=== PATIENT | female | born 1970 | race Caucasian/White ===

== ENCOUNTER 2016-04-07 23:38 | Emergency (ER) | payer OTHER ==
[2016-04-07 23:45] VITALS: RESP 18
[2016-04-08] MEDS ORDERED: HYDROmorphone 2 MG/ML 1 ML SYRINGE IM STA (00:01)
[2016-04-08] MEDS ORDERED: PROMETHAZINE INJ 25 MG/ML 1 ML VIAL IM STA (00:01)
[2016-04-08] MEDS ORDERED: diphenhydrAMINE 50 MG/ML 1 ML VIAL IM STA (00:01)
--- NOTE | 2016-04-08 00:10 | ED ---
Headache HPI - General Chief Complaint: Headache Stated Complaint: migraine Time Seen by Provider: 04/07/16 23:51 Source: RN notes reviewed Mode of arrival: ambulatory Limitations: no limitations - History of Present Illness Initial Comments: Patient is a 46-year-old female presents to the emergency room for evaluation of headache. Patient has a chronic history of migraine headaches. Patient states today after eating noodles that she's never had before, she began developing a headache. Patient states having a 9 out of 10 headache. Patient does admit to photophobia and phonophobia. Patient also states she's having slight neck pain which is different from her migraine. Patient states she is having some blurriness in vision as well which is different from her normal migraine symptoms. Patient states she was prescribed and nasal spray by her neurologist and ran out, but cannot get a refill until Friday. Patient denies ear pain, ringing in ears, numbness or tingling in extremities. Patient admits to nausea but denies vomiting. Patient denies recent head trauma. - Related Data Home Medications Medication Instructions Recorded Confirmed Levothyroxine Sodium [Synthroid] 50 mcg PO DAILY 08/10/14 04/07/16 Lacosamide [Vimpat] 100 mg PO BID 11/24/15 04/07/16 Zonisamide [Zonegran] 300 mg PO DAILY 12/21/15 04/07/16 Atorvastatin Calcium [Lipitor] 80 mg PO HS 04/07/16 04/07/16 Butorphanol Tartrate [Stadol Nasal 1 spray NASAL Q3-4H PRN 04/07/16 04/07/16 [place]] Hydrocodone/Acetaminophen [[place] 1 tab PO Q12H PRN 04/07/16 04/07/16 7.5-325] Previous Rx's Medication Instructions Recorded Sertraline [Zoloft] 100 mg PO BID tab 11/20/15 amLODIPine [Norvasc] 5 mg PO DAILY tab 11/20/15 Phenytoin Sodium Extended 100 mg PO TID #90 cap 01/02/16 [Dilantin] Allergies Allergy/AdvReac Type Severity Reaction Status Date / Time gabapentin [From Neurontin] Allergy Itching Verified 04/07/16 23:45 latex Allergy Anaphylaxis Verified 04/07/16 23:45 naproxen [From Naprosyn] Allergy Anaphylaxis Verified 04/07/16 23:45 Penicillins Allergy Anaphylaxis Verified 04/07/16 23:45 quetiapine fumarate Allergy Itching, Verified 04/07/16 23:45 [From Seroquel] leg cramps rofecoxib [From Vioxx] Allergy Itching, Verified 04/07/16 23:45 leg cramps terfenadine [From Seldane] Allergy Rash/Hives Verified 04/07/16 23:45 calcium carbonate [From DHEA] AdvReac Chest Pain Verified 04/07/16 23:45 calcium phosphate,dibasic AdvReac Chest Pain Verified 04/07/16 23:45 [From DHEA] clindamycin AdvReac muscle Verified 04/07/16 23:45 cramps dextromethorphan HBr AdvReac face/neck Verified 04/07/16 23:45 [From NyQuil] flushing diazepam [From Valium] AdvReac Nausea & Verified 04/07/16 23:45 Vomiting doxylamine [From NyQuil] AdvReac face "beet Verified 04/07/16 23:45 red", elevated temp. ibuprofen [From Motrin] AdvReac abdominal Verified 04/07/16 23:45 & muscle cramps indomethacin [From Indocin] AdvReac Abdominal Verified 04/07/16 23:45 Pain,N/V indomethacin sodium AdvReac Abdominal Verified 04/07/16 23:45 [From Indocin] Pain, N/V ketorolac tromethamine AdvReac "built up Verified 04/07/16 23:45 [From Toradol] in system", had to be given something to reverse metoclopramide HCl AdvReac muscle Verified 04/07/16 23:45 [From Reglan] cramps prasterone (DHEA) [From DHEA] AdvReac Chest Pain Verified 04/07/16 23:45 pseudoephedrine HCl AdvReac face "beet Verified 04/07/16 23:45 [From NyQuil] red", elevated temp. sumatriptan [From Imitrex] AdvReac migrane Verified 04/07/16 23:45 sumatriptan succinate AdvReac migrane Verified 04/07/16 23:45 [From Imitrex] topiramate [From Topamax] AdvReac "built up Verified 04/07/16 23:45 in system", had to be given something to reverse tramadol AdvReac Nausea & Verified 04/07/16 23:45 Vomiting trazodone AdvReac "built up Verified 04/07/16 23:45 in system", had to be given something to reverse zolpidem tartrate AdvReac BECOMES Verified 04/07/16 23:45 [From Ambien] VIOLENT WITH NO MEMORY artificial sweetener AdvReac SEVERE Uncoded 04/07/16 23:45 MIGRAINE HEADACHE Review of Systems ROS Statement: Those systems with pertinent positive or pertinent negative responses have been documented in the HPI. ROS Other: All systems not noted in ROS Statement are negative. Past Medical History Past Medical History: GERD/Reflux, Hypertension, Seizure Disorder, Thyroid Disorder Additional Past Medical History / Comment(s): Migraines. Viral MENINGITIS X2, 1993, 2000. CHRONIC BACK PAIN R/T FALL IN 1998. History of Any Multi-Drug Resistant Organisms: None Reported Past Surgical History: Appendectomy, Section, Cholecystectomy, Hysterectomy, Orthopedic Surgery, Tonsillectomy, Tubal Ligation Additional Past Surgical History / Comment(s): Hiatal Hernia, UMB HERNIA Repair. LT ROTATOR REPAIR. TOSHA KNEE SCOPES. Past Anesthesia/Blood Transfusion Reactions: No Reported Reaction Additional Past Anesthesia/Blood Transfusion Reaction / Comment(s): CLAUSTROPHOBIC Past Psychological History: Anxiety, Bipolar, Panic Disorder Smoking Status: Former smoker Past Alcohol Use History: Rare Additional Past Alcohol Use History / Comment(s): SMOKING SINCE 1981, smokes 1/ 4 to 1/2 ppd Past Drug Use History: None Reported - Past Family History Mother Family Medical History: Cancer, Dementia, Diabetes Mellitus, GERD/Reflux, Hyperlipidemia, Hypertension, Thyroid Disorder Additional Family Medical History / Comment(s): quad cabg, cardiac stents, toes amp. Father History Unknown: Yes Family Medical History: No Reported History General Exam - General Exam Comments Initial Comments: Sitting in exam room in no acute distress. Limitations: no limitations General appearance: alert, in no apparent distress Head exam: Present: atraumatic, normocephalic, normal inspection Eye exam: Present: normal appearance ENT exam: Present: normal exam Neck exam: Present: normal inspection, full ROM. Absent: tenderness, lymphadenopathy Respiratory exam: Present: normal lung sounds bilaterally. Absent: respiratory distress Cardiovascular Exam: Present: regular rate, normal rhythm, normal heart sounds Extremities exam: Present: normal inspection Back exam: Present: normal inspection Neurological exam: Present: alert, oriented X3, CN II-XII intact, normal gait Expanded Patient oriented to: Present: person, place, time Speech: Present: fluid speech Cranial nerves: EOM's Intact: Normal Sensory exam: Upper Extremity Light Touch: Normal, Lower Extremity Light Touch: Normal Motor strength exam: RUE: 5, LUE: 5, RLE: 5, LLE: 5 Eye Response: (4) open spontaneously Motor Response: (6) obeys commands Verbal Response: (5) oriented Psychiatric exam: Present: normal affect, normal mood Skin exam: Present: warm, dry, intact, normal color. Absent: rash Course Vital Signs 04/07/16 04/08/16 23:43 01:28 Temperature 98.0 F 97.8 F Pulse Rate 97 79 Respiratory 18 18 Rate Blood Pressure 149/99 144/69 O2 Sat by Pulse 99 97 Oximetry Medical Decision Making - Medical Decision Making Patient is a 46-year-old female presents emergency room for evaluation of migraine headache. Because patient was experiencing new symptoms today brings CT was ordered. Brain CT showed no acute findings. Patient is feeling better after medications given. Advised patient to follow-up with her neurologist. Patient states she understands everything that was discussed with her. Return parameters discussed. Case discussed with Dr. Mclaughlin. - Radiology Data Radiology results: report reviewed, image reviewed Disposition Clinical Impression: Migraine headache Disposition: HOME SELF-CARE Condition: Good Instructions: Acute Headache (ED) Additional Instructions: Continue taking at home medications as needed. Please follow up with neurologist. If any new symptom arises, symptoms worsen or fever develops, return to ER as soon as possible. Referrals: Ayush Mueller MD [Primary Care Provider] - 1-2 days Time of Disposition: 01:21
--- NOTE | 2016-04-08 01:08 | CT ---
EXAMINATION TYPE: CT brain wo con DATE OF EXAM: 04/08/2016 12:40 AM COMPARISON: 12/24/2015 HISTORY: Headache CT DLP: 1047.10 mGycm Automated exposure control for dose reduction was used. FINDINGS: The ventricles and sulci appear normal. There is no mass effect or midline shift. There is no sign of intracranial hemorrhage. The calvarium is intact. There is an empty sella which is a normal variant. IMPRESSION: Negative unenhanced head CT scan. No change.
[2016-04-08 01:29] VITALS: BP 144/69; PULSE 79; TEMP 97.8
== END 2016-04-08 01:28 | disposition home or self-care (01) ==
LOC: EC 23:38
DX: G43.909 Migraine, unspecified, not intractable, without status migrainosus (principal); G40.909 Epilepsy, unspecified, not intractable, without status epilepticus; I10 Essential (primary) hypertension; K21.9 Gastro-esophageal reflux disease without esophagitis; E07.9 Disorder of thyroid, unspecified; F31.9 Bipolar disorder, unspecified; F41.0 Panic disorder [episodic paroxysmal anxiety]; F41.9 Anxiety disorder, unspecified; Z87.891 Personal history of nicotine dependence; Z79.899 Other long term (current) drug therapy; Z88.0 Allergy status to penicillin; Z88.6 Allergy status to analgesic agent; Z88.8 Allergy status to other drugs, medicaments and biological substances; Z91.040 Latex allergy status
CPT/HCPCS: 99284; 96372 ×3; 70450; J1170; J1200; J2550

== ENCOUNTER 2016-07-20 19:51 | Emergency (ER) | payer OTHER ==
[2016-07-20 19:54] VITALS: BP 140/91; PULSE 114; RESP 20; TEMP 99.1
--- NOTE | 2016-07-20 20:06 | ED ---
ENT HPI - General Chief complaint: ENT Stated complaint: migraine Time Seen by Provider: 07/20/16 20:01 Source: patient Mode of arrival: ambulatory Limitations: no limitations - History of Present Illness Initial comments: 46-year-old female presents to the ER complaining of bilateral ear congestion and pressure along with headaches and sinus drainage. Patient feeling fatigued and slight ringing in the ears. Patient started with a cough today that's nonproductive. Patient's tried Ria pot nasal rinses and decongestants without much relief. Patient does feel more fatigued but no recorded fevers. Patient denies seasonal ALLERGIES. Patient states she's been going on for 4 days. No dizziness. No visual changes no nausea or vomiting. MD complaint: ear pain - Related Data Home Medications Medication Instructions Recorded Confirmed Levothyroxine Sodium [Synthroid] 50 mcg PO DAILY 08/10/14 07/20/16 Lacosamide [Vimpat] 100 mg PO BID 11/24/15 07/20/16 Zonisamide [Zonegran] 300 mg PO DAILY 12/21/15 07/20/16 Atorvastatin Calcium [Lipitor] 80 mg PO HS 04/07/16 07/20/16 Butorphanol Tartrate [Stadol Nasal 1 spray NASAL Q3-4H PRN 04/07/16 07/20/16 [place]] Hydrocodone/Acetaminophen [[place] 1 tab PO Q12H PRN 04/07/16 07/20/16 7.5-325] Previous Rx's Medication Instructions Recorded Sertraline [Zoloft] 100 mg PO BID tab 11/20/15 amLODIPine [Norvasc] 5 mg PO DAILY tab 11/20/15 Phenytoin Sodium Extended 100 mg PO TID #90 cap 01/02/16 [Dilantin] Azithromycin [Zithromax Z-pack] 250 mg PO DIRECTED #6 tab 07/20/16 methylPREDNISolone [Medrol] 4 mg PO DIRECTED #21 tab.ds.pk 07/20/16 Allergies Allergy/AdvReac Type Severity Reaction Status Date / Time gabapentin [From Neurontin] Allergy Itching Verified 07/20/16 19:54 latex Allergy Anaphylaxis Verified 07/20/16 19:54 naproxen [From Naprosyn] Allergy Anaphylaxis Verified 07/20/16 19:54 Penicillins Allergy Anaphylaxis Verified 07/20/16 19:54 quetiapine fumarate Allergy Itching, Verified 07/20/16 19:54 [From Seroquel] leg cramps rofecoxib [From Vioxx] Allergy Itching, Verified 07/20/16 19:54 leg cramps terfenadine [From Seldane] Allergy Rash/Hives Verified 07/20/16 19:54 calcium carbonate [From DHEA] AdvReac Chest Pain Verified 07/20/16 19:54 calcium phosphate,dibasic AdvReac Chest Pain Verified 07/20/16 19:54 [From DHEA] clindamycin AdvReac muscle Verified 07/20/16 19:54 cramps dextromethorphan HBr AdvReac face/neck Verified 07/20/16 19:54 [From NyQuil] flushing diazepam [From Valium] AdvReac Nausea & Verified 07/20/16 19:54 Vomiting doxylamine [From NyQuil] AdvReac face "beet Verified 07/20/16 19:54 red", elevated temp. ibuprofen [From Motrin] AdvReac abdominal Verified 07/20/16 19:54 & muscle cramps indomethacin [From Indocin] AdvReac Abdominal Verified 07/20/16 19:54 Pain,N/V indomethacin sodium AdvReac Abdominal Verified 07/20/16 19:54 [From Indocin] Pain, N/V ketorolac tromethamine AdvReac "built up Verified 07/20/16 19:54 [From Toradol] in system", had to be given something to reverse metoclopramide HCl AdvReac muscle Verified 07/20/16 19:54 [From Reglan] cramps prasterone (DHEA) [From DHEA] AdvReac Chest Pain Verified 07/20/16 19:54 pseudoephedrine HCl AdvReac face "beet Verified 07/20/16 19:54 [From NyQuil] red", elevated temp. sumatriptan [From Imitrex] AdvReac migrane Verified 07/20/16 19:54 sumatriptan succinate AdvReac migrane Verified 07/20/16 19:54 [From Imitrex] topiramate [From Topamax] AdvReac "built up Verified 07/20/16 19:54 in system", had to be given something to reverse tramadol AdvReac Nausea & Verified 07/20/16 19:54 Vomiting trazodone AdvReac "built up Verified 07/20/16 19:54 in system", had to be given something to reverse zolpidem tartrate AdvReac BECOMES Verified 07/20/16 19:54 [From Ambien] VIOLENT WITH NO MEMORY artificial sweetener AdvReac SEVERE Uncoded 07/20/16 19:54 MIGRAINE HEADACHE Review of Systems ROS Statement: Those systems with pertinent positive or pertinent negative responses have been documented in the HPI. ROS Other: All systems not noted in ROS Statement are negative. Constitutional: Denies: fever ENT: Reports: congestion. Denies: throat pain Respiratory: Reports: cough Cardiovascular: Denies: chest pain Gastrointestinal: Denies: abdominal pain, nausea, vomiting Neurological: Reports: headache. Denies: confusion, vertigo Past Medical History Past Medical History: GERD/Reflux, Hypertension, Seizure Disorder, Thyroid Disorder Additional Past Medical History / Comment(s): Migraines. Viral MENINGITIS X2, 1993, 2000. CHRONIC BACK PAIN R/T FALL IN 1998. History of Any Multi-Drug Resistant Organisms: None Reported Past Surgical History: Appendectomy, Section, Cholecystectomy, Hysterectomy, Orthopedic Surgery, Tonsillectomy, Tubal Ligation Additional Past Surgical History / Comment(s): Hiatal Hernia, UMB HERNIA Repair. LT ROTATOR REPAIR. TOSHA KNEE SCOPES. Past Anesthesia/Blood Transfusion Reactions: No Reported Reaction Additional Past Anesthesia/Blood Transfusion Reaction / Comment(s): CLAUSTROPHOBIC Past Psychological History: Anxiety, Bipolar, Panic Disorder Smoking Status: Former smoker Past Alcohol Use History: Rare Additional Past Alcohol Use History / Comment(s): SMOKING SINCE 1981, smokes 1/ 4 to 1/2 ppd Past Drug Use History: None Reported - Past Family History Mother Family Medical History: Cancer, Dementia, Diabetes Mellitus, GERD/Reflux, Hyperlipidemia, Hypertension, Thyroid Disorder Additional Family Medical History / Comment(s): quad cabg, cardiac stents, toes amp. Father History Unknown: Yes Family Medical History: No Reported History General Exam Limitations: no limitations General appearance: alert, in no apparent distress Head exam: Present: atraumatic, normocephalic, normal inspection Eye exam: Present: normal appearance, PERRL, EOMI. Absent: scleral icterus, conjunctival injection, periorbital swelling ENT exam: Present: normal exam, mucous membranes moist Expanded TM/Canal exam: Erythema: Right TM Mouth exam: Present: normal external inspection Throat exam: normal inspection Neck exam: Present: normal inspection, lymphadenopathy (Anterior bilateral cervical tender). Absent: tenderness, meningismus Respiratory exam: Present: normal lung sounds bilaterally. Absent: respiratory distress, wheezes, rales, rhonchi, stridor Cardiovascular Exam: Present: regular rate, normal rhythm, normal heart sounds. Absent: systolic murmur, diastolic murmur, rubs, gallop, clicks GI/Abdominal exam: Present: soft, normal bowel sounds. Absent: distended, tenderness, guarding, rebound, rigid Course Vital Signs 07/20/16 19:52 Temperature 99.1 F Pulse Rate 114 H Respiratory 20 Rate Blood Pressure 140/91 O2 Sat by Pulse 98 Oximetry Medical Decision Making - Medical Decision Making Discussed with patient that we'll try antibiotics patient to continue with nasal sprays nasal rinses and decongestants along with antihistamines. Patient only fill steroid if symptoms progress or worsen. Patient states the steroids just makes her legs her but she is not ALLERGIC to them. Disposition Clinical Impression: Otitis media, Eustachian tube dysfunction Disposition: HOME SELF-CARE Condition: Good Instructions: Earache (ED) Prescriptions: Azithromycin [Zithromax Z-pack] 250 mg PO DIRECTED #6 tab methylPREDNISolone [Medrol] 4 mg PO DIRECTED #21 tab.ds.pk Time of Disposition: 20:06
== END 2016-07-20 20:30 | disposition home or self-care (01) ==
LOC: EC 19:51
DX: H66.93 Otitis media, unspecified, bilateral (principal); H69.83 Other specified disorders of Eustachian tube, bilateral; R51 Headache; K21.9 Gastro-esophageal reflux disease without esophagitis; I10 Essential (primary) hypertension; G40.909 Epilepsy, unspecified, not intractable, without status epilepticus; E07.9 Disorder of thyroid, unspecified; F31.9 Bipolar disorder, unspecified; F41.9 Anxiety disorder, unspecified; Z87.891 Personal history of nicotine dependence; Z79.899 Other long term (current) drug therapy; Z91.040 Latex allergy status; Z88.0 Allergy status to penicillin; Z88.6 Allergy status to analgesic agent; Z88.8 Allergy status to other drugs, medicaments and biological substances; Z91.048 Other nonmedicinal substance allergy status
CPT/HCPCS: 99283

== ENCOUNTER 2016-08-06 00:04 | Emergency (ER) | payer OTHER ==
[2016-08-06] MEDS ORDERED: SODIUM CHLORIDE 0.9% 1,000 ML IV STA (00:20)
[2016-08-06] MEDS ORDERED: HYDROmorphone 1 MG/ML 1 ML SYRINGE IVP STA ×2 (00:25→01:47)
[2016-08-06 01:09] LABS: Partial Thromboplastin Time 24.5 sec (22.0-30.0); Prothrombin Time 10.6 sec (9.0-12.0)
[2016-08-06 01:12] LABS: Basophils # (A) 0.1 k/uL (0-0.2); Basophils % (A) 1 %; CH 33.7; CHCM 37.1; Eosinophils # (A) 0.1 k/uL (0-0.7); Eosinophils % (A) 1 %; HCT 40.2 % (34.0-46.0); HDW 2.99; HGB 14.2 gm/dL (11.4-16.0); Luc # (Auto) 0.31; Luc % (Auto) 4; Lymphocytes # (A) 2.5 k/uL (1.0-4.8); Lymphocytes % (A) 28 %; MCH 32.1 pg (25.0-35.0); MCHC 35.2 g/dL (31.0-37.0); MCV 91.4 fL (80.0-100.0); Mean Platelet Volume 8.5; Monocytes # (A) 0.6 k/uL (0-1.0); Monocytes % (A) 7 %; Neutrophils # (A) 5.4 k/uL (1.3-7.7); Neutrophils % (A) 61 %; RDW 12.8 % (11.5-15.5); WBC 8.9 k/uL (3.8-10.6); WBC (Perox) 8.68
[2016-08-06 01:14] LABS: Creatine Kinase 47 U/L (30-135)
[2016-08-06 01:16] LABS: ALT 30 U/L (9-52); AST 20 U/L (14-36); Alkaline Phosphatase 153 U/L (38-126); Amylase 57 U/L (30-110); Anion Gap 9 mmol/L; Blood Urea Nitrogen 6 mg/dL (7-17); Calcium 9.3 mg/dL (8.4-10.2); Carbon Dioxide 24 mmol/L (22-30); Chloride 107 mmol/L (98-107); Glucose 96 mg/dL (74-99); Magnesium 1.9 mg/dL (1.6-2.3); Non-African American GFR(MDRD) >60 (>60 ml/min/1.73 sqM); Potassium 3.2 mmol/L (3.5-5.1); Sodium 140 mmol/L (137-145); Total Bilirubin 0.5 mg/dL (0.2-1.3)
--- NOTE | 2016-08-06 01:19 | ED ---
Chest Pain HPI - General Chief Complaint: Chest Pain Stated Complaint: chest pain, SOB Time Seen by Provider: 08/06/16 00:15 Source: patient, family, RN notes reviewed Mode of arrival: ambulatory Limitations: no limitations - History of Present Illness Initial Comments: This is a 46-year-old female history of multiple medical problems but no history of heart or lung disease who does still smoke cigarettes who states she had the onset about 2 hours prior to admission of retrosternal chest pain and felt like a bag of bricks sitting on her chest. She states it was about 9/10 in severity increases somewhat with deep breathing she denies any cough fevers chills nausea vomiting sweats or other symptoms. He does have a family history again of heart disease but no personal history. She is currently on Cipro for an ear infection she started this 3 days ago. She also started Lipitor 3 days ago. She denies any other current complaints at this time. The patient does states she does get chest pain from anxiety this feels somewhat different. MD Complaint: chest pain - Related Data Home Medications Medication Instructions Recorded Confirmed Levothyroxine Sodium [Synthroid] 50 mcg PO DAILY 08/10/14 08/06/16 Lacosamide [Vimpat] 100 mg PO BID 11/24/15 08/06/16 Zonisamide [Zonegran] 300 mg PO DAILY 12/21/15 08/06/16 Atorvastatin Calcium [Lipitor] 40 mg PO HS 04/07/16 08/06/16 Butorphanol Tartrate [Stadol Nasal 1 spray NASAL Q3-4H PRN 04/07/16 08/06/16 [place]] Hydrocodone/Acetaminophen [[place] 1 tab PO Q12H PRN 04/07/16 08/06/16 7.5-325] Previous Rx's Medication Instructions Recorded Sertraline [Zoloft] 100 mg PO BID tab 11/20/15 amLODIPine [Norvasc] 5 mg PO DAILY tab 11/20/15 Phenytoin Sodium Extended 100 mg PO TID #90 cap 01/02/16 [Dilantin] Azithromycin [Zithromax Z-pack] 250 mg PO DIRECTED #6 tab 07/20/16 methylPREDNISolone [Medrol] 4 mg PO DIRECTED #21 tab.ds.pk 07/20/16 Magnesium 200 mg PO DAILY #14 tablet 08/06/16 Potassium Chloride ER [K-Dur 20] 20 meq PO BID #30 tab 08/06/16 Allergies Allergy/AdvReac Type Severity Reaction Status Date / Time gabapentin [From Neurontin] Allergy Itching Verified 08/06/16 00:09 latex Allergy Anaphylaxis Verified 08/06/16 00:09 naproxen [From Naprosyn] Allergy Anaphylaxis Verified 08/06/16 00:09 Penicillins Allergy Anaphylaxis Verified 08/06/16 00:09 quetiapine fumarate Allergy Itching, Verified 08/06/16 00:09 [From Seroquel] leg cramps rofecoxib [From Vioxx] Allergy Itching, Verified 08/06/16 00:09 leg cramps terfenadine [From [place]eld[place]] Allergy Rash/Hives Verified 08/06/16 00:09 calcium carbonate [From DHEA] AdvReac Chest Pain Verified 08/06/16 00:09 calcium phosphate,dibasic AdvReac Chest Pain Verified 08/06/16 00:09 [From DHEA] clindamycin AdvReac muscle Verified 08/06/16 00:09 cramps dextromethorphan HBr AdvReac face/neck Verified 08/06/16 00:09 [From NyQuil] flushing diazepam [From Valium] AdvReac Nausea & Verified 08/06/16 00:09 Vomiting doxylamine [From NyQuil] AdvReac face "beet Verified 08/06/16 00:09 red", elevated temp. ibuprofen [From Motrin] AdvReac abdominal Verified 08/06/16 00:09 & muscle cramps indomethacin [From Indocin] AdvReac Abdominal Verified 08/06/16 00:09 Pain,N/V indomethacin sodium AdvReac Abdominal Verified 08/06/16 00:09 [From Indocin] Pain, N/V ketorolac tromethamine AdvReac "built up Verified 08/06/16 00:09 [From Toradol] in system", had to be given something to reverse metoclopramide HCl AdvReac muscle Verified 08/06/16 00:09 [From Reglan] cramps prasterone (DHEA) [From DHEA] AdvReac Chest Pain Verified 08/06/16 00:09 pseudoephedrine HCl AdvReac face "beet Verified 08/06/16 00:09 [From NyQuil] red", elevated temp. sumatriptan [From Imitrex] AdvReac migrane Verified 08/06/16 00:09 sumatriptan succinate AdvReac migrane Verified 08/06/16 00:09 [From Imitrex] topiramate [From Topamax] AdvReac "built up Verified 08/06/16 00:09 in system", had to be given something to reverse tramadol AdvReac Nausea & Verified 08/06/16 00:09 Vomiting trazodone AdvReac "built up Verified 08/06/16 00:09 in system", had to be given something to reverse zolpidem tartrate AdvReac BECOMES Verified 08/06/16 00:09 [From Ambien] VIOLENT WITH NO MEMORY artificial sweetener AdvReac SEVERE Uncoded 08/06/16 00:09 MIGRAINE HEADACHE Review of Systems ROS Statement: Those systems with pertinent positive or pertinent negative responses have been documented in the HPI. ROS Other: All systems not noted in ROS Statement are negative. EKG Findings - EKG Results: EKG: interpreted by AMANDA, sinus rhythm (Sinus rhythm with a rate 93 SD interval 162 QRS duration 72 QT/QTC of 394/489 is evidence of a prolonged QT interval no acute ST-T wave elevations or depressions.) Past Medical History Past Medical History: GERD/Reflux, Hypertension, Seizure Disorder, Thyroid Disorder Additional Past Medical History / Comment(s): Migraines. Viral MENINGITIS X2, 1993, 2000. CHRONIC BACK PAIN R/T FALL IN 1998. History of Any Multi-Drug Resistant Organisms: None Reported Past Surgical History: Appendectomy, Section, Cholecystectomy, Hysterectomy, Orthopedic Surgery, Tonsillectomy, Tubal Ligation Additional Past Surgical History / Comment(s): Hiatal Hernia, UMB HERNIA Repair. LT ROTATOR REPAIR. TOSHA KNEE SCOPES. Past Anesthesia/Blood Transfusion Reactions: No Reported Reaction Additional Past Anesthesia/Blood Transfusion Reaction / Comment(s): CLAUSTROPHOBIC Past Psychological History: Anxiety, Bipolar, Panic Disorder Smoking Status: Former smoker Past Alcohol Use History: Rare Additional Past Alcohol Use History / Comment(s): SMOKING SINCE 1981, smokes 1/ 4 to 1/2 ppd Past Drug Use History: None Reported - Past Family History Mother Family Medical History: Cancer, Dementia, Diabetes Mellitus, GERD/Reflux, Hyperlipidemia, Hypertension, Thyroid Disorder Additional Family Medical History / Comment(s): quad cabg, cardiac stents, toes amp. Father History Unknown: Yes Family Medical History: No Reported History General Exam - General Exam Comments Initial Comments: This is a well-developed well-nourished awake alert oriented history female she is very anxious Limitations: no limitations General appearance: alert, anxious Head exam: Present: atraumatic, normocephalic, normal inspection Eye exam: Present: normal appearance, PERRL, EOMI. Absent: scleral icterus, conjunctival injection, periorbital swelling ENT exam: Present: normal exam, mucous membranes moist Neck exam: Present: normal inspection. Absent: tenderness, meningismus, lymphadenopathy Respiratory exam: Present: normal lung sounds bilaterally, chest wall tenderness. Absent: respiratory distress, wheezes, rales, rhonchi, stridor Cardiovascular Exam: Present: regular rate, normal rhythm, normal heart sounds. Absent: systolic murmur, diastolic murmur, rubs, gallop, clicks GI/Abdominal exam: Present: soft, normal bowel sounds. Absent: distended, tenderness, guarding, rebound, rigid Extremities exam: Present: normal inspection, full ROM, normal capillary refill. Absent: tenderness, pedal edema, joint swelling, calf tenderness Back exam: Present: normal inspection Neurological exam: Present: alert, oriented X3, CN II-XII intact Psychiatric exam: Present: normal affect, normal mood Skin exam: Present: warm, dry, intact, normal color. Absent: rash Course Vital Signs 08/06/16 00:06 Temperature 98.2 F Pulse Rate 91 Respiratory 20 Rate Blood Pressure 140/91 O2 Sat by Pulse 97 Oximetry Chest Pain MDM - MDM Review the x-ray reveals no evidence of acute findings. I did discuss findings with the patient she is somewhat hypo-every morning she will be given supplementation discharged. Patient patient is consistent with chest wall pain Disposition Clinical Impression: Chest wall syndrome, Costalchondritis, Hypokalemia Disposition: HOME SELF-CARE Condition: Good Instructions: Costochondritis (ED), Hypokalemia (ED) Prescriptions: Magnesium 200 mg PO DAILY #14 tablet Potassium Chloride ER [K-Dur 20] 20 meq PO BID #30 tab
--- NOTE | 2016-08-06 01:22 | XR ---
EXAM: XR Chest, 2 Views CLINICAL HISTORY: Reason: Chest Pain TECHNIQUE: Frontal and lateral views of the chest. COMPARISON: 05/13/15 radiographs. FINDINGS: Lungs: Stable. No consolidation. Pleural space: Unremarkable. No pleural effusion or pneumothorax. Heart: Stable, without cardiomegaly. Mediastinum: Stable and within normal limits. Bones/joints: The bones are stable including degenerative changes. IMPRESSION: No significant change, no new acute intrathoracic abnormality is seen.
[2016-08-06 01:27] LABS: Creatine Kinase MB <0.2 ng/mL (0.0-2.4); Troponin I <0.012 ng/mL (0.000-0.034)
[2016-08-06 01:44] LABS: Manual Review Performed
[2016-08-06] MEDS ORDERED: LORazepam 2 MG/ML SYRINGE IV STA (01:47)
[2016-08-06] MEDS ORDERED: POTASSIUM CHLORIDE ER 20 MEQ TAB.ER PO STA (01:48)
[2016-08-06 02:03] VITALS: BP 139/95; PULSE 93; RESP 18
[2016-08-06] MEDS ORDERED: ONDANSETRON 4 MG/2 ML VIAL IVP STA (02:13)
[2016-08-06 02:18] VITALS: TEMP 97.1
== END 2016-08-06 02:37 | disposition home or self-care (01) ==
LOC: EC 00:04
DX: M94.0 Chondrocostal junction syndrome [Tietze] (principal); E87.6 Hypokalemia; I10 Essential (primary) hypertension; E07.9 Disorder of thyroid, unspecified; G40.909 Epilepsy, unspecified, not intractable, without status epilepticus; Z87.891 Personal history of nicotine dependence; Z79.899 Other long term (current) drug therapy; Z88.0 Allergy status to penicillin; Z91.040 Latex allergy status; Z88.6 Allergy status to analgesic agent; Z88.8 Allergy status to other drugs, medicaments and biological substances; Z88.1 Allergy status to other antibiotic agents; Z82.49 Family history of ischemic heart disease and other diseases of the circulatory system
CPT/HCPCS: 99285; 96374; 96375 ×2; 96376; 96361 ×2; 36415; 93005; 85379; 80053; 82150; 82550; 82553; 83690; 83735; 84484; 85025; 85610; 85730; 71020; J2060; J2405; J1170

== ENCOUNTER 2016-08-07 21:13 | Inpatient (IN) | payer MEDICAID, OTHER ==
--- NOTE | 2016-08-07 21:52 | ED ---
General Adult HPI - General Chief complaint: Psychiatric Symptoms Stated complaint: suicidal Time Seen by Provider: 08/07/16 21:26 Source: patient, family, RN notes reviewed, old records reviewed Mode of arrival: wheelchair Limitations: no limitations - History of Present Illness Initial comments: This is a 46-year-old female here for evaluation of psychiatric disease, patient has multiple recent ER visits for multiple different issues. Patient coming in for headache and pain that she can't control. She states she wants to kill herself secondary to her headaches. She did cut herself on her wrists for the first time today. Patient denies drugs or alcohol - Related Data Home Medications Medication Instructions Recorded Confirmed Levothyroxine Sodium [Synthroid] 50 mcg PO DAILY 08/10/14 08/07/16 Lacosamide [Vimpat] 100 mg PO BID 11/24/15 08/07/16 Atorvastatin Calcium [Lipitor] 40 mg PO HS 04/07/16 08/07/16 Butorphanol Tartrate [Stadol Nasal 1 spray NASAL Q3-4H PRN 04/07/16 08/07/16 [place]] Ciprofloxacin HCl [Cipro] 500 mg PO Q12HR 08/07/16 08/07/16 LORazepam [Ativan] 0.5 mg PO BID 08/07/16 08/07/16 Magnesium Oxide [Mag-Ox] 200 mg PO BID 08/07/16 08/07/16 Ondansetron Odt [Zofran ODT] 4 mg PO Q8HR PRN 08/07/16 08/07/16 tiZANidine [Zanaflex] 4 mg PO BID 08/07/16 08/07/16 Previous Rx's Medication Instructions Recorded amLODIPine [Norvasc] 5 mg PO DAILY tab 11/20/15 Phenytoin Sodium Extended 100 mg PO TID #90 cap 01/02/16 [Dilantin] Potassium Chloride ER [K-Dur 20] 20 meq PO BID #30 tab 08/06/16 Allergies Allergy/AdvReac Type Severity Reaction Status Date / Time gabapentin [From Neurontin] Allergy Itching Verified 08/06/16 00:09 latex Allergy Anaphylaxis Verified 08/06/16 00:09 naproxen [From Naprosyn] Allergy Anaphylaxis Verified 08/06/16 00:09 Penicillins Allergy Anaphylaxis Verified 08/06/16 00:09 quetiapine fumarate Allergy Itching, Verified 08/06/16 00:09 [From Seroquel] leg cramps rofecoxib [From Vioxx] Allergy Itching, Verified 08/06/16 00:09 leg cramps terfenadine [From Seldane] Allergy Rash/Hives Verified 08/06/16 00:09 calcium carbonate [From DHEA] AdvReac Chest Pain Verified 08/06/16 00:09 calcium phosphate,dibasic AdvReac Chest Pain Verified 08/06/16 00:09 [From DHEA] clindamycin AdvReac muscle Verified 08/06/16 00:09 cramps dextromethorphan HBr AdvReac face/neck Verified 08/06/16 00:09 [From NyQuil] flushing diazepam [From Valium] AdvReac Nausea & Verified 08/06/16 00:09 Vomiting doxylamine [From NyQuil] AdvReac face "beet Verified 08/06/16 00:09 red", elevated temp. ibuprofen [From Motrin] AdvReac abdominal Verified 08/06/16 00:09 & muscle cramps indomethacin [From Indocin] AdvReac Abdominal Verified 08/06/16 00:09 Pain,N/V indomethacin sodium AdvReac Abdominal Verified 08/06/16 00:09 [From Indocin] Pain, N/V ketorolac tromethamine AdvReac "built up Verified 08/06/16 00:09 [From Toradol] in system", had to be given something to reverse metoclopramide HCl AdvReac muscle Verified 08/06/16 00:09 [From Reglan] cramps prasterone (DHEA) [From DHEA] AdvReac Chest Pain Verified 08/06/16 00:09 pseudoephedrine HCl AdvReac face "beet Verified 08/06/16 00:09 [From NyQuil] red", elevated temp. sumatriptan [From Imitrex] AdvReac migrane Verified 08/06/16 00:09 sumatriptan succinate AdvReac migrane Verified 08/06/16 00:09 [From Imitrex] topiramate [From Topamax] AdvReac "built up Verified 08/06/16 00:09 in system", had to be given something to reverse tramadol AdvReac Nausea & Verified 08/06/16 00:09 Vomiting trazodone AdvReac "built up Verified 08/06/16 00:09 in system", had to be given something to reverse zolpidem tartrate AdvReac BECOMES Verified 08/06/16 00:09 [From Ambien] VIOLENT WITH NO MEMORY artificial sweetener AdvReac SEVERE Uncoded 08/06/16 00:09 MIGRAINE HEADACHE Review of Systems ROS Statement: Those systems with pertinent positive or pertinent negative responses have been documented in the HPI. ROS Other: All systems not noted in ROS Statement are negative. Past Medical History Past Medical History: GERD/Reflux, Hypertension, Seizure Disorder, Thyroid Disorder Additional Past Medical History / Comment(s): Migraines. Viral MENINGITIS X2, 1993, 2000. CHRONIC BACK PAIN R/T FALL IN 1998. History of Any Multi-Drug Resistant Organisms: None Reported Past Surgical History: Appendectomy, Section, Cholecystectomy, Hysterectomy, Orthopedic Surgery, Tonsillectomy, Tubal Ligation Additional Past Surgical History / Comment(s): Hiatal Hernia, UMB HERNIA Repair. LT ROTATOR REPAIR. TOSHA KNEE SCOPES. Past Anesthesia/Blood Transfusion Reactions: No Reported Reaction Additional Past Anesthesia/Blood Transfusion Reaction / Comment(s): CLAUSTROPHOBIC Past Psychological History: Anxiety, Bipolar, Panic Disorder Smoking Status: Former smoker Past Alcohol Use History: Rare Additional Past Alcohol Use History / Comment(s): SMOKING SINCE 1981, smokes 1/ 4 to 1/2 ppd Past Drug Use History: None Reported - Past Family History Mother Family Medical History: Cancer, Dementia, Diabetes Mellitus, GERD/Reflux, Hyperlipidemia, Hypertension, Thyroid Disorder Additional Family Medical History / Comment(s): quad cabg, cardiac stents, toes amp. Father History Unknown: Yes Family Medical History: No Reported History General Exam Limitations: no limitations General appearance: alert, in no apparent distress Head exam: Present: atraumatic, normocephalic, normal inspection Eye exam: Present: normal appearance, PERRL, EOMI. Absent: scleral icterus, conjunctival injection, periorbital swelling ENT exam: Present: normal exam, mucous membranes moist Neck exam: Present: normal inspection. Absent: tenderness, meningismus, lymphadenopathy Respiratory exam: Present: normal lung sounds bilaterally. Absent: respiratory distress, wheezes, rales, rhonchi, stridor Cardiovascular Exam: Present: regular rate, normal rhythm, normal heart sounds. Absent: systolic murmur, diastolic murmur, rubs, gallop, clicks GI/Abdominal exam: Present: soft, normal bowel sounds. Absent: distended, tenderness, guarding, rebound, rigid Extremities exam: Present: normal inspection, full ROM, normal capillary refill. Absent: tenderness, pedal edema, joint swelling, calf tenderness Back exam: Present: normal inspection Neurological exam: Present: alert, oriented X3, CN II-XII intact Psychiatric exam: Present: normal affect, normal mood Skin exam: Present: warm, dry, intact, normal color. Absent: rash Course Vital Signs 08/07/16 08/08/16 08/08/16 21:14 00:04 01:02 Temperature 98.1 F 97.3 F L Pulse Rate 103 H 84 81 Pulse Rate [ Order Entry Technician ] Pulse Rate [ Right Sitting] Respiratory 20 18 18 Rate Blood Pressure 181/102 121/94 143/92 Blood Pressure [Right Arm Sitting] O2 Sat by Pulse 100 97 100 Oximetry 08/08/16 08/08/16 08/08/16 01:29 07:50 13:20 Temperature 97.3 F L Pulse Rate Pulse Rate [ Order Entry Technician ] Pulse Rate [ 83 95 82 Right Sitting] Respiratory 18 16 16 Rate Blood Pressure Blood Pressure 151/93 131/90 115/63 [Right Arm Sitting] O2 Sat by Pulse 94 L Oximetry 08/09/16 08/09/16 08/09/16 06:21 11:08 11:15 Temperature 97.9 F Pulse Rate Pulse Rate [ 82 97 Order Entry Technician ] Pulse Rate [ 83 Right Sitting] Respiratory 16 16 16 Rate Blood Pressure Blood Pressure 115/75 [Right Arm Sitting] O2 Sat by Pulse 97 100 Oximetry 08/09/16 11:19 Temperature Pulse Rate Pulse Rate [ 84 Order Entry Technician ] Pulse Rate [ Right Sitting] Respiratory 16 Rate Blood Pressure Blood Pressure [Right Arm Sitting] O2 Sat by Pulse 96 Oximetry - Reevaluation(s) Reevaluation #1: 08/07/16 22:30 Patient is medically clear for psychiatric evaluation Medical Decision Making - Medical Decision Making 46 female here for evaluation. Patient comes into the ER for evaluation of suicidal thoughts and pain control. Patient will be admitted for psychiatric evaluation - Lab Data Result diagrams: 08/07/16 23:53 08/07/16 23:53 Lab Results 08/07/16 08/07/16 08/07/16 Range/Units 23:03 23:03 23:03 WBC (3.8-10.6) k/uL RBC (3.80-5.40) m/uL Hgb (11.4-16.0) gm/dL Hct (34.0-46.0) % MCV (80.0-100.0) fL MCH (25.0-35.0) pg MCHC (31.0-37.0) g/dL RDW (11.5-15.5) % Plt Count (150-450) k/uL Neutrophils % % Lymphocytes % % Monocytes % % Eosinophils % % Basophils % % Neutrophils # (1.3-7.7) k/uL Lymphocytes # (1.0-4.8) k/uL Monocytes # (0-1.0) k/uL Eosinophils # (0-0.7) k/uL Basophils # (0-0.2) k/uL Sodium (137-145) mmol/L Potassium (3.5-5.1) mmol/L Chloride (98-107) mmol/L Carbon Dioxide (22-30) mmol/L Anion Gap mmol/L BUN (7-17) mg/dL Creatinine (0.52-1.04) mg/dL Est GFR (MDRD) Af Amer (>60 ml/min/1.73 sqM) Est GFR (MDRD) Non-Af (>60 ml/min/1.73 sqM) Glucose (74-99) mg/dL Calcium (8.4-10.2) mg/dL Total Bilirubin (0.2-1.3) mg/dL AST (14-36) U/L ALT (9-52) U/L Alkaline Phosphatase (38-126) U/L Total Protein (6.3-8.2) g/dL Albumin (3.5-5.0) g/dL Urine Color Light Yellow Urine Appearance Clear (Clear) Urine pH 6.0 (5.0-8.0) Ur Specific [place] 1.002 (1.001-1.035) Urine Protein Negative (Negative) Urine Glucose (UA) Negative (Negative) Urine Ketones Negative (Negative) Urine Blood Negative (Negative) Urine Nitrite Negative (Negative) Urine Bilirubin Negative (Negative) Urine Urobilinogen <2.0 (<2.0) mg/dL Ur Leukocyte Esterase Negative (Negative) Urine HCG, Qual Not Detected (Not Detectd) Salicylates mg/dL Urine Opiates Screen Detected H (NotDetected) Ur Oxycodone Screen Not Detected (NotDetected) Urine Methadone Screen Not Detected (NotDetected) Ur Propoxyphene Screen Not Detected (NotDetected) Acetaminophen ug/mL Ur Barbiturates Screen Detected H (NotDetected) U Tricyclic Antidepress Not Detected (NotDetected) Ur Phencyclidine Scrn Not Detected (NotDetected) Ur Amphetamines Screen Not Detected (NotDetected) U Methamphetamines Scrn Not Detected (NotDetected) U Benzodiazepines Scrn Detected H (NotDetected) Urine Cocaine Screen Not Detected (NotDetected) U Marijuana (THC) Screen Not Detected (NotDetected) Serum Alcohol mg/dL 08/07/16 08/07/16 Range/Units 23:53 23:53 WBC 10.6 (3.8-10.6) k/uL RBC 4.37 (3.80-5.40) m/uL Hgb 14.2 (11.4-16.0) gm/dL Hct 41.7 (34.0-46.0) % MCV 95.4 (80.0-100.0) fL MCH 32.4 (25.0-35.0) pg MCHC 34.0 (31.0-37.0) g/dL RDW 13.0 (11.5-15.5) % Plt Count 212 (150-450) k/uL Neutrophils % 71 % Lymphocytes % 20 % Monocytes % 6 % Eosinophils % 1 % Basophils % 1 % Neutrophils # 7.5 (1.3-7.7) k/uL Lymphocytes # 2.1 (1.0-4.8) k/uL Monocytes # 0.7 (0-1.0) k/uL Eosinophils # 0.1 (0-0.7) k/uL Basophils # 0.1 (0-0.2) k/uL Sodium 142 (137-145) mmol/L Potassium 3.8 (3.5-5.1) mmol/L Chloride 110 H (98-107) mmol/L Carbon Dioxide 23 (22-30) mmol/L Anion Gap 9 mmol/L BUN 3 L (7-17) mg/dL Creatinine 0.60 (0.52-1.04) mg/dL Est GFR (MDRD) Af Amer >60 (>60 ml/min/1.73 sqM) Est GFR (MDRD) Non-Af >60 (>60 ml/min/1.73 sqM) Glucose 105 H (74-99) mg/dL Calcium 9.4 (8.4-10.2) mg/dL Total Bilirubin 0.3 (0.2-1.3) mg/dL AST 24 (14-36) U/L ALT 26 (9-52) U/L Alkaline Phosphatase 146 H (38-126) U/L Total Protein 6.6 (6.3-8.2) g/dL Albumin 3.8 (3.5-5.0) g/dL Urine Color Urine Appearance (Clear) Urine pH (5.0-8.0) Ur Specific [place] (1.001-1.035) Urine Protein (Negative) Urine Glucose (UA) (Negative) Urine Ketones (Negative) Urine Blood (Negative) Urine Nitrite (Negative) Urine Bilirubin (Negative) Urine Urobilinogen (<2.0) mg/dL Ur Leukocyte Esterase (Negative) Urine HCG, Qual (Not Detectd) Salicylates <1.0 mg/dL Urine Opiates Screen (NotDetected) Ur Oxycodone Screen (NotDetected) Urine Methadone Screen (NotDetected) Ur Propoxyphene Screen (NotDetected) Acetaminophen <10.0 ug/mL Ur Barbiturates Screen (NotDetected) U Tricyclic Antidepress (NotDetected) Ur Phencyclidine Scrn (NotDetected) Ur Amphetamines Screen (NotDetected) U Methamphetamines Scrn (NotDetected) U Benzodiazepines Scrn (NotDetected) Urine Cocaine Screen (NotDetected) U Marijuana (THC) Screen (NotDetected) Serum Alcohol <10 mg/dL Disposition Clinical Impression: Headache, Acute exacerbation of chronic low back pain, Acute psychosis Disposition: TRANSFER TO PSYCH HOSP/UNIT Condition: Stable
[2016-08-07] MEDS ORDERED: HYDROcodone/APAP 5-325MG 1 EACH TAB PO STA (22:00)
[2016-08-07] MEDS ORDERED: LORazepam 1 MG TAB PO STA (22:01)
[2016-08-07] MEDS ORDERED: TOPICAL SKIN ADHESIVE 1 EACH AMP TOPICAL ONE (22:02)
[2016-08-08 00:18] LABS: Appearance,Urine Clear (Clear); Bilirubin,Urine Negative (Negative); Glucose,Urine (UA) Negative (Negative); Ketones,Urine Negative (Negative); Leukocyte Esterase,Urine Negative (Negative); Nitrite,Urine Negative (Negative); Protein,Urine Negative (Negative); Specific Gravity,Urine 1.002 (1.001-1.035); UA Billing (MACRO vs. MICRO) CHEM; Urobilinogen,Urine <2.0 mg/dL (<2.0)
[2016-08-08 00:21] LABS: Basophils # (A) 0.1 k/uL (0-0.2); Basophils % (A) 1 %; CH 33.4; CHCM 35.3; Eosinophils # (A) 0.1 k/uL (0-0.7); Eosinophils % (A) 1 %; HCT 41.7 % (34.0-46.0); HDW 2.91; HGB 14.2 gm/dL (11.4-16.0); Luc # (Auto) 0.22; Luc % (Auto) 2; Lymphocytes # (A) 2.1 k/uL (1.0-4.8); Lymphocytes % (A) 20 %; MCH 32.4 pg (25.0-35.0); MCV 95.4 fL (80.0-100.0); Mean Platelet Volume 8.7; Monocytes # (A) 0.7 k/uL (0-1.0); Monocytes % (A) 6 %; Neutrophils # (A) 7.5 k/uL (1.3-7.7); Neutrophils % (A) 71 %; RBC 4.37 m/uL (3.80-5.40); WBC 10.6 k/uL (3.8-10.6); WBC (Perox) 10.42
[2016-08-08 00:28] LABS: ALT 26 U/L (9-52); AST 24 U/L (14-36); Acetaminophen <10.0 ug/mL; Alcohol <10 mg/dL; Alkaline Phosphatase 146 U/L (38-126); Anion Gap 9 mmol/L; Blood Urea Nitrogen 3 mg/dL (7-17); Calcium 9.4 mg/dL (8.4-10.2); Carbon Dioxide 23 mmol/L (22-30); Chloride 110 mmol/L (98-107); Glucose 105 mg/dL (74-99); Non-African American GFR(MDRD) >60 (>60 ml/min/1.73 sqM); Potassium 3.8 mmol/L (3.5-5.1); Salicylate <1.0 mg/dL; Sodium 142 mmol/L (137-145); Total Bilirubin 0.3 mg/dL (0.2-1.3); Total Protein 6.6 g/dL (6.3-8.2)
[2016-08-08 01:41] VITALS: BMI 32.9
[2016-08-08] MEDS ORDERED: ZIPRASIDONE 20 MG VIAL IM PRN (03:43)
[2016-08-08] MEDS ORDERED: MAG HYDROX/AL HYDROX/SIMETH 30 ML CUP PO PRN (03:43)
[2016-08-08] MEDS ORDERED: MAGNESIUM HYDROXIDE 2,400 MG/10 ML CUP PO PRN (03:43)
[2016-08-08] MEDS ORDERED: ACETAMINOPHEN TAB 325 MG TAB PO PRN (03:43)
[2016-08-08] MEDS: LEVOTHYROXINE 50 MCG TAB PO SCH (06:06)
[2016-08-08] MEDS: LACOSAMIDE 50 MG TABLET PO SCH ×2 (07:57→20:46)
[2016-08-08] MEDS: PHENYTOIN SODIUM EXTENDED 100 MG CAP PO SCH ×3 (07:57→20:47)
[2016-08-08] MEDS: amLODIPine 5 MG TAB PO SCH (07:57)
[2016-08-08] MEDS: MAGNESIUM OXIDE 400 MG TAB PO SCH ×2 (07:58→20:46)
[2016-08-08] MEDS: POTASSIUM CHLORIDE ER 20 MEQ TAB.ER PO SCH ×2 (07:59→20:47)
[2016-08-08] MEDS ORDERED: LORazepam 1 MG TAB PO PRN (08:19)
[2016-08-08] MEDS ORDERED: LORazepam 0.5 MG TAB PO SCH (09:00)
[2016-08-08] MEDS: SUMAtriptan SUCCINATE 50 MG TAB PO STA ×2 (10:05→10:08)
[2016-08-08] MEDS ORDERED: HYDROmorphone 2 MG TAB PO STA (10:11)
[2016-08-08 10:41] VITALS: RESP 16
--- NOTE | 2016-08-08 12:57 | P.HP ---
Psychiatric H&P - . H&P Date: 08/08/16 History & Physical: IDENTIFYING DATA: Ms. Mercado is a 46-year-old woman who presented to unit voluntarily. HISTORY OF PRESENT ILLNESS: She was laying in her bed and complained of a "severe" migraine headache. She alleged she is able to concentrate to complete the interview until she has "something for pain". According to the EPS nurse her brought her to the hospital due to self- inflicted lacerations to both her wrists while he was at the store. He told at the EPS nurse that she has never done anything like this before. He remains concerned about her behavior and has locked the household knives away yesterday. She complained to the EPS nurse that she has ongoing issues with "bipolar depression" and that she "did not have enough in her to cope with the pain." She received pain management treatment but once her insurance changed to [employer] [place] she was not able to go to the physician's office. I spoke with her on the telephone. He stated that she has been complaining of worsening migraines and back pain. He stated that she has been having "a lot of migraines lately." Stated that she has never attempted suicide or self-harm. He believes that the pain had "built up" to where it was too much for her. She was using her "migraine medication", Stadol nasal spray, but "the medicine was not working anymore." He came home from a store and "found her before it got worse." She was in the shower cutting herself. I called the performance management consultant regarding her pain complaints and management sold her pain complaints. PAST PSYCHIATRIC HISTORY: Her denied that she had history of prior psychiatric hospitalizations or mental health treatment. PAST MEDICAL HISTORY: She has multiple medical problem, multiple ALLERGIES and adverse r reactions to medications. Her medication history includes GERD, hypertension, seizure disorder and thyroid disease. She has history of migraine headaches, viral meningitis and chronic back pain. Her surgeries include an appendectomy, section, cholecystectomy, hysterectomy, tonsillectomy and tubal ligation. ALLERGIES: Apri ALLERGIES include Neurontin, latex, Naprosyn, penicillins, Seroquel, Vioxx, Seldane. SUBSTANCE USE HISTORY: Her denied that she has a history of alcohol or drug use FAMILY PSYCHIATRIC/SUBSTANCE USE HISTORY: Her believes that her father' s family have a history of mental illness LEGAL HISTORY: She has no history of legal problems.. SOCIAL HISTORY: She was born in [place]. She and her have been together since 1998 and in 2005. They have 1 daughter and 1 grandchild. Both he and his are unemployed and seeking disability. MENTAL STATUS EXAM: She presented as a distressed 46-year-old female who is laying in bed. She has been not turning lights on in her room. She covered most of her head with a blanket. She was pain focused and alleged she could not continue with the interview due to the severity of the pain. STRENGTHS: Stable housing, stable income, supportive family. WEAKNESSES: Chronic pain disorder. IMPRESSION: She is a 46-year-old male who presented to unit voluntarily with complaints of hopelessness and suicidal ideation. She attributes the suicidal ideation and a suicide gesture to inability to control her headache pain. She apparently lost insurance and unable to continue treatment from a pain specialist. Due to the level of her distress were unable to complete a comprehensive assessment. PRINCIPLE DIAGNOSIS: Suicide gesture by cutting, migraine headaches, rule out opiate withdrawal, rule out opiate use disorder, seizure disorder RECOMMENDATION: Team inpatient psychiatric hospitalizations. Consult medicine for initial physical exam and medical history as well as recommendations for management of her pain complaint. Social work to complete psychosocial assessment. Continue outpatient medications including Norvasc 5 mg daily Lipitor 40 mg at bedtime, Vimpat 100 mg twice a day, Synthroid 50 g daily, magnesium oxide 20 mg twice a day, Dilantin 100 mg 3 times a day and K-Dur 20 mg twice a day. Complete a more detailed assessment when she is in less distress. Allergies Allergy/AdvReac Type Severity Reaction Status Date / Time gabapentin [From Neurontin] Allergy Itching Verified 08/06/16 00:09 latex Allergy Anaphylaxis Verified 08/06/16 00:09 naproxen [From Naprosyn] Allergy Anaphylaxis Verified 08/06/16 00:09 Penicillins Allergy Anaphylaxis Verified 08/06/16 00:09 quetiapine fumarate Allergy Itching, Verified 08/06/16 00:09 [From Seroquel] leg cramps rofecoxib [From Vioxx] Allergy Itching, Verified 08/06/16 00:09 leg cramps terfenadine [From Seldane] Allergy Rash/Hives Verified 08/06/16 00:09 calcium carbonate [From DHEA] AdvReac Chest Pain Verified 08/06/16 00:09 calcium phosphate,dibasic AdvReac Chest Pain Verified 08/06/16 00:09 [From DHEA] clindamycin AdvReac muscle Verified 08/06/16 00:09 cramps dextromethorphan HBr AdvReac face/neck Verified 08/06/16 00:09 [From NyQuil] flushing diazepam [From Valium] AdvReac Nausea & Verified 08/06/16 00:09 Vomiting doxylamine [From NyQuil] AdvReac face "beet Verified 08/06/16 00:09 red", elevated temp. ibuprofen [From Motrin] AdvReac abdominal Verified 08/06/16 00:09 & muscle cramps indomethacin [From Indocin] AdvReac Abdominal Verified 08/06/16 00:09 Pain,N/V indomethacin sodium AdvReac Abdominal Verified 08/06/16 00:09 [From Indocin] Pain, N/V ketorolac tromethamine AdvReac "built up Verified 08/06/16 00:09 [From Toradol] in system", had to be given something to reverse metoclopramide HCl AdvReac muscle Verified 08/06/16 00:09 [From Reglan] cramps prasterone (DHEA) [From DHEA] AdvReac Chest Pain Verified 08/06/16 00:09 pseudoephedrine HCl AdvReac face "beet Verified 08/06/16 00:09 [From NyQuil] red", elevated temp. sumatriptan [From Imitrex] AdvReac migrane Verified 08/06/16 00:09 sumatriptan succinate AdvReac migrane Verified 08/06/16 00:09 [From Imitrex] topiramate [From Topamax] AdvReac "built up Verified 08/06/16 00:09 in system", had to be given something to reverse tramadol AdvReac Nausea & Verified 08/06/16 00:09 Vomiting trazodone AdvReac "built up Verified 08/06/16 00:09 in system", had to be given something to reverse zolpidem tartrate AdvReac BECOMES Verified 08/06/16 00:09 [From Ambien] VIOLENT WITH NO MEMORY artificial sweetener AdvReac SEVERE Uncoded 08/06/16 00:09 MIGRAINE HEADACHE Vital Signs Temp 97.3 F L 08/08/16 01:29 Pulse 83 08/08/16 01:29 Resp 18 08/08/16 01:29 BP 151/93 08/08/16 01:29 Pulse Ox 94 L 08/08/16 01:29 Intake & Output 08/07/16 08/08/16 08/08/16 18:59 06:59 18:59 Weight 81.76 kg Laboratory Last Values WBC 10.6 k/uL (3.8-10.6) 08/07/16 23:53 RBC 4.37 m/uL (3.80-5.40) 08/07/16 23:53 Hgb 14.2 gm/dL (11.4-16.0) 08/07/16 23:53 Hct 41.7 % (34.0-46.0) 08/07/16 23:53 MCV 95.4 fL (80.0-100.0) 08/07/16 23:53 MCH 32.4 pg (25.0-35.0) 08/07/16 23:53 MCHC 34.0 g/dL (31.0-37.0) 08/07/16 23:53 RDW 13.0 % (11.5-15.5) 08/07/16 23:53 Plt Count 212 k/uL (150-450) 08/07/16 23:53 Neutrophils % 71 % 08/07/16 23:53 Lymphocytes % 20 % 08/07/16 23:53 Monocytes % 6 % 08/07/16 23:53 Eosinophils % 1 % 08/07/16 23:53 Basophils % 1 % 08/07/16 23:53 Neutrophils # 7.5 k/uL (1.3-7.7) 08/07/16 23:53 Lymphocytes # 2.1 k/uL (1.0-4.8) 08/07/16 23:53 Monocytes # 0.7 k/uL (0-1.0) 08/07/16 23:53 Eosinophils # 0.1 k/uL (0-0.7) 08/07/16 23:53 Basophils # 0.1 k/uL (0-0.2) 08/07/16 23:53 Sodium 142 mmol/L (137-145) 08/07/16 23:53 Potassium 3.8 mmol/L (3.5-5.1) 08/07/16 23:53 Chloride 110 mmol/L (98-107) H 08/07/16 23:53 Carbon Dioxide 23 mmol/L (22-30) 08/07/16 23:53 Anion Gap 9 mmol/L 08/07/16 23:53 BUN 3 mg/dL (7-17) L 08/07/16 23:53 Creatinine 0.60 mg/dL (0.52-1.04) 08/07/16 23:53 Est GFR (MDRD) Af Amer >60 (>60 ml/min/1.73 sqM) 08/07/16 23:53 Est GFR (MDRD) Non-Af >60 (>60 ml/min/1.73 sqM) 08/07/16 23:53 Glucose 105 mg/dL (74-99) H 08/07/16 23:53 Calcium 9.4 mg/dL (8.4-10.2) 08/07/16 23:53 Total Bilirubin 0.3 mg/dL (0.2-1.3) 08/07/16 23:53 AST 24 U/L (14-36) 08/07/16 23:53 ALT 26 U/L (9-52) 08/07/16 23:53 Alkaline Phosphatase 146 U/L (38-126) H 08/07/16 23:53 Total Protein 6.6 g/dL (6.3-8.2) 08/07/16 23:53 Albumin 3.8 g/dL (3.5-5.0) 08/07/16 23:53 TSH 1.020 mIU/L (0.465-4.680) 08/08/16 09:06 Urine Color Light Yellow 08/07/16 23:03 Urine Appearance Clear (Clear) 08/07/16 23:03 Urine pH 6.0 (5.0-8.0) 08/07/16 23:03 Ur Specific [place] 1.002 (1.001-1.035) 08/07/16 23:03 Urine Protein Negative (Negative) 08/07/16 23:03 Urine Glucose (UA) Negative (Negative) 08/07/16 23:03 Urine Ketones Negative (Negative) 08/07/16 23:03 Urine Blood Negative (Negative) 08/07/16 23:03 Urine Nitrite Negative (Negative) 08/07/16 23:03 Urine Bilirubin Negative (Negative) 08/07/16 23:03 Urine Urobilinogen <2.0 mg/dL (<2.0) 08/07/16 23:03 Ur Leukocyte Esterase Negative (Negative) 08/07/16 23:03 Urine HCG, Qual Not Detected (Not Detectd) 08/07/16 23:03 Salicylates <1.0 mg/dL 08/07/16 23:53 Urine Opiates Screen Detected (NotDetected) H 08/07/16 23:03 Ur Oxycodone Screen Not Detected (NotDetected) 08/07/16 23:03 Urine Methadone Screen Not Detected (NotDetected) 08/07/16 23:03 Ur Propoxyphene Screen Not Detected (NotDetected) 08/07/16 23:03 Acetaminophen <10.0 ug/mL 08/07/16 23:53 Ur Barbiturates Screen Detected (NotDetected) H 08/07/16 23:03 U Tricyclic Antidepress Not Detected (NotDetected) 08/07/16 23:03 Ur Phencyclidine Scrn Not Detected (NotDetected) 08/07/16 23:03 Ur Amphetamines Screen Not Detected (NotDetected) 08/07/16 23:03 U Methamphetamines Scrn Not Detected (NotDetected) 08/07/16 23:03 U Benzodiazepines Scrn Detected (NotDetected) H 08/07/16 23:03 Urine Cocaine Screen Not Detected (NotDetected) 08/07/16 23:03 U Marijuana (THC) Screen Not Detected (NotDetected) 08/07/16 23:03 Serum Alcohol <10 mg/dL 08/07/16 23:53 08/08/16 10:36 08/08/16 12:41
--- NOTE | 2016-08-08 15:39 | P.HPIM ---
History of Present Illness H&P Date: 08/08/16 A 46-year-old female being seen on the mental health unit at the request of the attending for medical eval. Patient did present to the unit on a voluntary basis. Upon arrival in the room the patient's chief complaint is "a severe migraine headache. Patient states has light sensitivity due to the headache Patient has multiple drug ALLERGIES. Patient states she's had migraines for years. Patient stated in the past she has seen a neurologist for management of her headaches but due to insurance reasons has not been able to continue with following up with recommendations by Dr. hall she indicates that headache is usually relieved by using Stadol nasal spray. Did indicate to the patient that we do not have this on formulary and could not use the Stadol nasal spray. Patient was encouraged to have a family member bring in from home could be used patient states did not have anybody who could go to her house and get her nasal spray Additionally patient states the only thing that has helped her in the past is getting IV Dilaudid did indicate the patient that the order would not be written to give IV dilaudid would give a one-time dose oral. Patient did agree and said that she felt that that would be helpful" According to the patient she is been having a lot of migraine headaches.. Patient does have history of a bipolar depressive disorder and has not been able to cope with the migraine headache. Patient also is reporting that she has not been able to cope with the headaches. Reviewing the computerized record indicated that the did come home and found the patient in the shower cutting herself. Subsequently the patient was admitted to the mental health unit of [facility]. Patient's primary doctor is Dr. Lewis Review of Systems Essentially unremarkable except as mentioned in the present illness Past Medical History Past Medical History: GERD/Reflux, Hypertension, Seizure Disorder, Thyroid Disorder Additional Past Medical History / Comment(s): Migraines. Viral MENINGITIS X2, 1993, 2000. CHRONIC BACK PAIN R/T FALL IN 1998. History of Any Multi-Drug Resistant Organisms: None Reported Past Surgical History: Appendectomy, Section, Cholecystectomy, Hysterectomy, Orthopedic Surgery, Tonsillectomy, Tubal Ligation Additional Past Surgical History / Comment(s): Hiatal Hernia, UMB HERNIA Repair. LT ROTATOR REPAIR. TOSHA KNEE SCOPES. Past Anesthesia/Blood Transfusion Reactions: No Reported Reaction Additional Past Anesthesia/Blood Transfusion Reaction / Comment(s): CLAUSTROPHOBIC Past Psychological History: Anxiety, Bipolar, Panic Disorder Smoking Status: Current every day smoker Past Alcohol Use History: Rare Additional Past Alcohol Use History / Comment(s): SMOKING SINCE 1981, smokes 1/ 4 to 1/2 ppd Past Drug Use History: None Reported - Past Family History Mother Family Medical History: Cancer, Dementia, Diabetes Mellitus, GERD/Reflux, Hyperlipidemia, Hypertension, Thyroid Disorder Additional Family Medical History / Comment(s): quad cabg, cardiac stents, toes amp. Father History Unknown: Yes Family Medical History: No Reported History Medications and Allergies Home Medications Medication Instructions Recorded Confirmed Type Levothyroxine Sodium [Synthroid] 50 mcg PO DAILY 08/10/14 08/07/16 History Lacosamide [Vimpat] 100 mg PO BID 11/24/15 08/07/16 History Atorvastatin Calcium [Lipitor] 40 mg PO HS 04/07/16 08/07/16 History Butorphanol Tartrate [Stadol Nasal 1 spray NASAL Q3-4H PRN 04/07/16 08/07/16 History [place]] Ciprofloxacin HCl [Cipro] 500 mg PO Q12HR 08/07/16 08/07/16 History LORazepam [Ativan] 0.5 mg PO BID 08/07/16 08/07/16 History Magnesium Oxide [Mag-Ox] 200 mg PO BID 08/07/16 08/07/16 History Ondansetron Odt [Zofran Odt] 4 mg PO Q8HR PRN 08/07/16 08/07/16 History tiZANidine [Zanaflex] 4 mg PO BID 08/07/16 08/07/16 History Allergies Allergy/AdvReac Type Severity Reaction Status Date / Time gabapentin [From Neurontin] Allergy Itching Verified 08/06/16 00:09 latex Allergy Anaphylaxis Verified 08/06/16 00:09 naproxen [From Naprosyn] Allergy Anaphylaxis Verified 08/06/16 00:09 Penicillins Allergy Anaphylaxis Verified 08/06/16 00:09 quetiapine fumarate Allergy Itching, Verified 08/06/16 00:09 [From Seroquel] leg cramps rofecoxib [From Vioxx] Allergy Itching, Verified 08/06/16 00:09 leg cramps terfenadine [From Seldane] Allergy Rash/Hives Verified 08/06/16 00:09 calcium carbonate [From DHEA] AdvReac Chest Pain Verified 08/06/16 00:09 calcium phosphate,dibasic AdvReac Chest Pain Verified 08/06/16 00:09 [From DHEA] clindamycin AdvReac muscle Verified 08/06/16 00:09 cramps dextromethorphan HBr AdvReac face/neck Verified 08/06/16 00:09 [From NyQuil] flushing diazepam [From Valium] AdvReac Nausea & Verified 08/06/16 00:09 Vomiting doxylamine [From NyQuil] AdvReac face "beet Verified 08/06/16 00:09 red", elevated temp. ibuprofen [From Motrin] AdvReac abdominal Verified 08/06/16 00:09 & muscle cramps indomethacin [From Indocin] AdvReac Abdominal Verified 08/06/16 00:09 Pain,N/V indomethacin sodium AdvReac Abdominal Verified 08/06/16 00:09 [From Indocin] Pain, N/V ketorolac tromethamine AdvReac "built up Verified 08/06/16 00:09 [From Toradol] in system", had to be given something to reverse metoclopramide HCl AdvReac muscle Verified 08/06/16 00:09 [From Reglan] cramps prasterone (DHEA) [From DHEA] AdvReac Chest Pain Verified 08/06/16 00:09 pseudoephedrine HCl AdvReac face "beet Verified 08/06/16 00:09 [From NyQuil] red", elevated temp. sumatriptan [From Imitrex] AdvReac migrane Verified 08/06/16 00:09 sumatriptan succinate AdvReac migrane Verified 08/06/16 00:09 [From Imitrex] topiramate [From Topamax] AdvReac "built up Verified 08/06/16 00:09 in system", had to be given something to reverse tramadol AdvReac Nausea & Verified 08/06/16 00:09 Vomiting trazodone AdvReac "built up Verified 08/06/16 00:09 in system", had to be given something to reverse zolpidem tartrate AdvReac BECOMES Verified 08/06/16 00:09 [From Ambien] VIOLENT WITH NO MEMORY artificial sweetener AdvReac SEVERE Uncoded 08/06/16 00:09 MIGRAINE HEADACHE Physical Exam Vitals: Vital Signs Temp Pulse Pulse Resp BP BP Pulse Ox 08/08/16 13:20 82 16 115/63 08/08/16 07:50 95 16 131/90 08/08/16 01:29 97.3 F L 83 18 151/93 94 L 08/08/16 01:02 97.3 F L 81 18 143/92 100 Intake and Output 08/08/16 08/08/16 08/08/16 06:59 14:59 22:59 Other: Weight 81.76 kg GENERAL APPEARANCE: 46-year-old female patient being seen on the mental health unit in her room with the blanket over her face stating the eye are very sensitive to light complaining of "a bad headache migraine worse whenever" VITAL SIGNS: Reviewed HEENT: Head is normocephalic and atraumatic. Pupils are equal and reactive. The nares are patent. Oropharynx is clear without lesions. NECK: Supple without lymphadenopathy. Traches midline. HEART: S1, S2. Regular rate and rhythm. No murmur noted denying chest pain LUNGS: No crackles or wheezes are heard. Adequate air entry ABDOMEN: Soft, nontender, nondistended with good bowel sounds. No peritoneal signs. No palpable organomegaly or masses. EXTREMITIES: Normal skin color and turgor. No cyanosis, rash, ulceration, clubbing or edema. Radial pedal pulses are 2/4 bilaterally. NEUROLOGICAL: No focal deficits. Strength and sensation are grossly intact. Results CBC & Chem 7: 08/07/16 23:53 08/07/16 23:53 Thrombosis Risk Factor Assmnt - Choose All That Apply Any of the Below Risk Factors Present?: Yes Each Factor Represents 1 point: Age 41-60 years, Obesity (BMI >25) Other Risk Factors: No Other congenital or acquired thrombophilia - If yes, enter type in comment: No Thrombosis Risk Factor Assessment Total Risk Factor Score: 2 Thrombosis Risk Factor Assessment Level: Low Risk Assessment and Plan Plan: Impression Present on admission intractable severe migraine headache History of migraine headaches A history of bipolar depressive disorder Suicide gesture by cutting Present on admission verbalized hopelessness with suicidal ideation Hypothyroid on supplements Hypertension Plan Consult neurology for recommendations for management in regards to the migraine headaches One-time dose of oral dilaudid Resume home meds as appropriate Defer further treatment management in regards to mental illness to the psychiatric service. We'll follow patient on an as-needed basis The above dictated assessment and findings were discussed with dr lewis Impression and the plan of care have been dictated as directed. Charissa Altamirano nurse practitioner acting as a scribe for dr lewis.
--- NOTE | 2016-08-08 17:49 | CT ---
EXAMINATION TYPE: CT brain wo con DATE OF EXAM: 08/08/2016 4:55 PM COMPARISON: Prior head CT second of April 2016 HISTORY: headaches CT DLP: 1037 mGycm Automated exposure control for dose reduction was used. FINDINGS: There is no acute intracranial hemorrhage, mass effect, or midline shift identified. The ventricles and sulci are within normal limits in size. The globes are intact and the visualized sinuses are rem arkable for inflammatory change in the bilateral maxillary sinuses. IMPRESSION: No acute intracranial hemorrhage, mass effect, or midline shift is seen. Sinus disease.
--- NOTE | 2016-08-08 18:54 | P.CNNES ---
History of Present Illness Consult date: 08/08/16 Reason for Consult: Patient admitted with severe intractable headaches. History of Present Illness: this patient is a 46-year-old right-handed white female who apparently over the last several days has been having severe intractable migraine headaches. she has been treated for her migraines and has been using Stadol nasal spray. apparently over the last 3 days she had to use the Stadol nasal spray but it was ineffective. She states that pain was becoming so severe that she could no longer stand the severity of the headaches. she does have history of underlying bipolar depressive disorder as well. She could not cope with the severity of the migraine headaches and apparently attempted to cut herself in her bathroom. she was subsequently brought to the emergency room and admitted to the inpatient psychiatric unit for further management. she does have a history of underlying seizure disorder for which she has been taking Vimpat and Dilantin. She states that she uses Stadol for migraine management but recently this has not been effective. Most of the headache pain seemed to be only on her right side. She describes it as a sharp pain extending from her eye to the back of the head. she was sent for a computed tomography scan of the brain which came back normal with no evidence of acute stroke or hemorrhage. she does have some degree of tenderness in the suboccipital notch quite severe on the right and minimal on the left. patient apparently has been following with her primary care physician Dr. Mueller was been prescribing her pain medications. she has not had any recent fever or chills. 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 she has not had any recent recurrence. on examination the patient does seem to have severe right suboccipital pain to palpation. we have mention this to the patient that this is the likely etiology of much of her headache pains at this time. we reviewed the results of the CAT scan of the brain which came back negative. She would likely benefit from a occipital nerve block procedure for treatment of the right sided headache pain. She was given 1 dose of Dilaudid today which did help but pain seems to be recurring. We will continue close neurological follow-up for the patient. Her overall prognosis at this time remains very guarded. neurology is now been consulted for further evaluation and recommendations. Review of Systems Constitutional: Denies chills, Denies fever Eyes: denies blurred vision, denies pain Ears, nose, mouth and throat: Denies headache, Denies sore throat Cardiovascular: Denies chest pain, Denies shortness of breath Respiratory: Denies cough Gastrointestinal: Denies abdominal pain, Denies diarrhea, Denies nausea, Denies vomiting Genitourinary: Denies dysuria, Denies hematuria Musculoskeletal: Denies myalgias Integumentary: Denies pruritus, Denies rash Neurological: Reports change in mentation, Reports headaches, Reports migraines , Reports seizures, Denies numbness, Denies weakness Psychiatric: Denies anxiety, Denies depression Endocrine: Denies fatigue, Denies weight change Past Medical History Past Medical History: GERD/Reflux, Hypertension, Seizure Disorder, Thyroid Disorder Additional Past Medical History / Comment(s): Migraines. Viral MENINGITIS X2, 1993, 2000. CHRONIC BACK PAIN R/T FALL IN 1998. History of Any Multi-Drug Resistant Organisms: None Reported Past Surgical History: Appendectomy, Section, Cholecystectomy, Hysterectomy, Orthopedic Surgery, Tonsillectomy, Tubal Ligation Additional Past Surgical History / Comment(s): Hiatal Hernia, UMB HERNIA Repair. LT ROTATOR REPAIR. TOSHA KNEE SCOPES. Past Anesthesia/Blood Transfusion Reactions: No Reported Reaction Additional Past Anesthesia/Blood Transfusion Reaction / Comment(s): CLAUSTROPHOBIC Past Psychological History: Anxiety, Bipolar, Panic Disorder Smoking Status: Current every day smoker Past Alcohol Use History: Rare Additional Past Alcohol Use History / Comment(s): SMOKING SINCE 1981, smokes 1/ 4 to 1/2 ppd Past Drug Use History: None Reported - Past Family History Mother Family Medical History: Cancer, Dementia, Diabetes Mellitus, GERD/Reflux, Hyperlipidemia, Hypertension, Thyroid Disorder Additional Family Medical History / Comment(s): quad cabg, cardiac stents, toes amp. Father History Unknown: Yes Family Medical History: No Reported History Medications and Allergies Home Medications Medication Instructions Recorded Confirmed Type Levothyroxine Sodium [Synthroid] 50 mcg PO DAILY 08/10/14 08/07/16 History Lacosamide [Vimpat] 100 mg PO BID 11/24/15 08/07/16 History Atorvastatin Calcium [Lipitor] 40 mg PO HS 04/07/16 08/07/16 History Butorphanol Tartrate [Stadol Nasal 1 spray NASAL Q3-4H PRN 04/07/16 08/07/16 History [place]] Ciprofloxacin HCl [Cipro] 500 mg PO Q12HR 08/07/16 08/07/16 History LORazepam [Ativan] 0.5 mg PO BID 08/07/16 08/07/16 History Magnesium Oxide [Mag-Ox] 200 mg PO BID 08/07/16 08/07/16 History Ondansetron Odt [Zofran Odt] 4 mg PO Q8HR PRN 08/07/16 08/07/16 History tiZANidine [Zanaflex] 4 mg PO BID 08/07/16 08/07/16 History Allergies Allergy/AdvReac Type Severity Reaction Status Date / Time gabapentin [From Neurontin] Allergy Itching Verified 08/06/16 00:09 latex Allergy Anaphylaxis Verified 08/06/16 00:09 naproxen [From Naprosyn] Allergy Anaphylaxis Verified 08/06/16 00:09 Penicillins Allergy Anaphylaxis Verified 08/06/16 00:09 quetiapine fumarate Allergy Itching, Verified 08/06/16 00:09 [From Seroquel] leg cramps rofecoxib [From Vioxx] Allergy Itching, Verified 08/06/16 00:09 leg cramps terfenadine [From Seldane] Allergy Rash/Hives Verified 08/06/16 00:09 calcium carbonate [From DHEA] AdvReac Chest Pain Verified 08/06/16 00:09 calcium phosphate,dibasic AdvReac Chest Pain Verified 08/06/16 00:09 [From DHEA] clindamycin AdvReac muscle Verified 08/06/16 00:09 cramps dextromethorphan HBr AdvReac face/neck Verified 08/06/16 00:09 [From NyQuil] flushing diazepam [From Valium] AdvReac Nausea & Verified 08/06/16 00:09 Vomiting doxylamine [From NyQuil] AdvReac face "beet Verified 08/06/16 00:09 red", elevated temp. ibuprofen [From Motrin] AdvReac abdominal Verified 08/06/16 00:09 & muscle cramps indomethacin [From Indocin] AdvReac Abdominal Verified 08/06/16 00:09 Pain,N/V indomethacin sodium AdvReac Abdominal Verified 08/06/16 00:09 [From Indocin] Pain, N/V ketorolac tromethamine AdvReac "built up Verified 08/06/16 00:09 [From Toradol] in system", had to be given something to reverse metoclopramide HCl AdvReac muscle Verified 08/06/16 00:09 [From Reglan] cramps prasterone (DHEA) [From DHEA] AdvReac Chest Pain Verified 08/06/16 00:09 pseudoephedrine HCl AdvReac face "beet Verified 08/06/16 00:09 [From NyQuil] red", elevated temp. sumatriptan [From Imitrex] AdvReac migrane Verified 08/06/16 00:09 sumatriptan succinate AdvReac migrane Verified 08/06/16 00:09 [From Imitrex] topiramate [From Topamax] AdvReac "built up Verified 08/06/16 00:09 in system", had to be given something to reverse tramadol AdvReac Nausea & Verified 08/06/16 00:09 Vomiting trazodone AdvReac "built up Verified 08/06/16 00:09 in system", had to be given something to reverse zolpidem tartrate AdvReac BECOMES Verified 08/06/16 00:09 [From Ambien] VIOLENT WITH NO MEMORY artificial sweetener AdvReac SEVERE Uncoded 08/06/16 00:09 MIGRAINE HEADACHE Physical Examination - Vital Signs Vital Signs: Vital Signs Temp Pulse Pulse Resp BP BP Pulse Ox 08/08/16 13:20 82 16 115/63 08/08/16 07:50 95 16 131/90 08/08/16 01:29 97.3 F L 83 18 151/93 94 L 08/08/16 01:02 97.3 F L 81 18 143/92 100 Intake and Output 08/08/16 08/08/16 08/08/16 06:59 14:59 22:59 Other: Weight 81.76 kg - Constitutional General appearance: average body habitus, cooperative - EENT EENT: PERRL, mucous membranes moist - Respiratory Respiratory: lungs clear, normal breath sounds - Cardiovascular Cardiovascular: regular rate, normal S1, normal S2 Extremities: no peripheral edema bilaterally - Gastrointestinal Gastrointestinal: normoactive bowel sounds - Integumentary Integumentary: normal - Neurologic Cranial nerve examination: PERRL, EOMI, V1/V2/V3 grossly intact, face symmetric , tongue midline, intact gag reflex, intact corneal reflex, normal palatal elevation Speech examination: intact Sensorimotor examination: intact Detailed motor examination: grossly full strength in all extremities Motor examination - right side: 5/5: biceps, triceps, wrist flexion, wrist extension, liquor bridge operator, hip flexors, knee extensors, dorsiflexion, toe extension (EHL) , plantarflexion Motor examination - left side: 5/5: biceps, triceps, wrist flexion, wrist extension, liquor bridge operator, hip flexors, knee extensors, dorsiflexion, toe extension (EHL) , plantarflexion Detailed sensory examination: intact Reflex and gait examination: intact Reflexes: 1+: ankle, bicep, knee, tricep - Musculoskeletal Musculoskeletal: no pain - Psychiatric Psychiatric: mood/affect appropriate, cooperative Results - Laboratory Findings CBC and BMP: 08/07/16 23:53 08/07/16 23:53 Assessment and Plan (1) Occipital neuralgia of right side Status: Acute Code(s): M54.81 - OCCIPITAL NEURALGIA (2) Lumbar radiculopathy Status: Acute Code(s): M54.16 - RADICULOPATHY, LUMBAR REGION (3) Migraine Status: Acute Code(s): G43.909 - MIGRAINE, UNSP, NOT INTRACTABLE, WITHOUT STATUS MIGRAINOSUS (4) Seizures Status: Acute Code(s): R56.9 - UNSPECIFIED CONVULSIONS (5) Strain, cervical Status: Acute Code(s): S16.1XXA - STRAIN OF MUSCLE, FASCIA AND TENDON AT NECK LEVEL, INIT Plan: This patient is a 46 year old female with recurrent headache pain. She has evidence of right sided occipital neuralgia. We have recommended an occipital nerve block procedure to be done for treatment. Her CT Scan of the brain is negative for any acute changes. We will continue to follow her progress closely during this admission. Her prognosis remains guarded. Will follow up after she is seen by anesthesia for a nerve block procedure. Time with Patient: Greater than 30
[2016-08-08] MEDS ORDERED: ATORVASTATIN 40 MG TAB PO SCH (21:00)
[2016-08-09] MEDS: LEVOTHYROXINE 50 MCG TAB PO SCH (06:16)
[2016-08-09 06:24] VITALS: BP 115/75; TEMP 97.9
[2016-08-09] MEDS: MAGNESIUM OXIDE 400 MG TAB PO SCH (09:00)
[2016-08-09] MEDS: LACOSAMIDE 50 MG TABLET PO SCH (09:00)
[2016-08-09] MEDS: PHENYTOIN SODIUM EXTENDED 100 MG CAP PO SCH ×2 (09:00→15:33)
[2016-08-09] MEDS: amLODIPine 5 MG TAB PO SCH (09:00)
[2016-08-09] MEDS: POTASSIUM CHLORIDE ER 20 MEQ TAB.ER PO SCH (09:00)
[2016-08-09] MEDS ORDERED: ONDANSETRON 4 MG/2 ML VIAL IVP ONE (11:08)
[2016-08-09] MEDS ORDERED: MIDAZOLAM 2 MG/2 ML VIAL IVP ONE (11:10)
[2016-08-09] MEDS: fentaNYL (PF) 50 MCG/ML 2 ML AMP IV ONE ×2 (11:12→11:41)
[2016-08-09] MEDS ORDERED: BUPIVACAIN-EPI 0.5%-1:200,000 30 ML VIAL SQ ONE (11:15)
[2016-08-09] MEDS ORDERED: TRIAMCINOLONE ACETONIDE 40 MG/ML 1 ML VIAL INTRADERMA ONE (11:15)
[2016-08-09 11:39] VITALS: PULSE 84
--- NOTE | 2016-08-09 11:44 | P.PCN ---
Date of Procedure: 08/09/16 Procedure(s) Performed: Pre-operative diagnosis: 1- Bilateral occipital neuralgea Post Operative Diagnosis 1- Bilateral occipital neuralgea Procedure: 1- Bilateral occipital nerve block ANESTHESIA: Conscious sedation with Versed.2 mg and fentanyl 100 micrograms EBL: Minimal PROCEDURE INDICATION: The patient with neck pain and headache secondary to bilateral (R>L )occipital neuralgea unresponsive to conservative treatments. PROCEDURE DESCRIPTION / TECHNIQUE: The patient was seen and identified in the operative area. Risks, benefits, complications, and alternatives were discussed with the patient, the patient agreed to proceed with the procedure and signed the consent. IV was started. Vital signs remained stable throughout the procedure. Patient was taken to the OR and time out was completed. The patient was placed in the pron (sitting ) position on the procedure table. A pillow was placed under the patients chest to increase the cervical interlaminar space. The cervical area and right occiptial area were prepped with alcohol swab. Critical pause was taken. Vital signs were closely monitored during the procedure. Conscious sedation was used during the procedure to decrease patients anxiety. The right occiptal ridge was palpated and was then accessed with a 25 G needle. Then after negative aspiration, 6 ml of the block solution containing 6 ml of PF Buvicaine 0.5% and Kenalog 40 mg was injected. Needle was withdrawn intact. Then the same procedure was repeated on the left side and related the left occipital nerve block, after negative aspiration 6 mL of the block solution containing ropivacaine 0.5% and 40 mg of Kenalog injected after negative aspiration Patient tolerated procedure well. No acute complications.
--- NOTE | 2016-08-09 12:44 | P.DS ---
Providers Date of admission: 08/08/16 00:56 Attending physician: Ayush Conroy MD Consults: 08/08/16 03:43 Consult Physician Routine Consulting Provider: Ayush Mueller Consult Reason/Comments: For H & P for Medical Follow Up Do you want consulting provider notified?: Yes, Notify in am 08/08/16 15:39 Consult Physician Urgent Consulting Provider: Leighann Rdz Consult Reason/Comments: migraines Do you want consulting provider notified?: Yes 08/09/16 07:00 Consult Anesthesia Urgent Consulting Provider: Anesthesia,Services Consult Reason/Comments: Consult for right occipital nerve block procedure. Primary care physician: Ayush Mueller - Discharge Diagnosis(es) (1) Suicide and self-inflicted injury by cutting and piercing instrument Current Visit: Yes Status: Acute Priority: Low (2) Chronic pain Current Visit: No Status: Chronic Priority: High (3) Migraine Current Visit: No Status: Chronic Priority: High Hospital Course: Ms. Mercado is a 46-year-old woman who presented to unit voluntarily. She was laying in her bed and complained of a "severe" migraine headache. She alleged she is able to concentrate to complete the interview until she has "something for pain". According to the EPS nurse her brought her to the hospital due to self- inflicted lacerations to both her wrists while he was at the store. He told at the EPS nurse that she has never done anything like this before. He remains concerned about her behavior and has locked the household knives away yesterday. She complained to the EPS nurse that she has ongoing issues with "bipolar depression" and that she "did not have enough in her to cope with the pain." She received pain management treatment but once her insurance changed to [facility] [place] she was not able to go to the physician's office. I spoke with her on the telephone. He stated that she has been complaining of worsening migraines and back pain. He stated that she has been having "a lot of migraines lately." Stated that she has never attempted suicide or self-harm. He believes that the pain had "built up" to where it was too much for her. She was using her "migraine medication", Stadol nasal spray, but "the medicine was not working anymore." He came home from a store and "found her before it got worse." She was in the shower cutting herself. Her denied that she had history of prior psychiatric hospitalizations or mental health treatment. She has multiple medical problem, multiple ALLERGIES and adverse r reactions to medications. Her medication history includes GERD, hypertension, seizure disorder and thyroid disease. She has history of migraine headaches, viral meningitis and chronic back pain. Her surgeries include an appendectomy, section, cholecystectomy, hysterectomy, tonsillectomy and tubal ligation. We admitted her to the psychiatric unit under the care of this senior medical writer. We provided a biopsychosocial assessment. The medical economics consultant completed the initial physical examination medical history and diagnosed intractable severe migraine headaches, history of migraine headaches, hypertension and hypothyroidism. The medical economics consultant initially prescribed 1 dose of Dilaudid 2 mg with marked relief of her headache pain. She refused sumatriptan 100 mg alleging that it was ineffective in relieving the headaches. Medicine consulted neurology who diagnose occipital neuralgia of the right side, lumbar radiculopathy, migraine, seizures and medical strain. Computed tomography scan of the brain was negative for any acute changes. The neurologist recommended an occipital nerve block and consulted anesthesiology for the procedure. Ms. Mercado was distressed that neither the copy worker nor the neurologist prescribed her Dilaudid or other opiate pain medications. The anesthesiologist performed the bilateral occipital nerve block with conscious sedation on 08/09/2016. I evaluated her when she returned to the unit. She reported a marked decrease in the headache pain. She described her self-harm as a result of her frustration at not being able to obtain relief from the headache. She reported feeling hopeful because the occipital nerve block was successful. She denied having thoughts of or suicide. She requested to be discharged and planned to follow up with her outpatient physician. pitch worker will arrange a family meeting and coordinate follow-up mental health services. Patient Condition at Discharge: Stable Plan - Discharge Summary Discharge Medication List Levothyroxine Sodium [Synthroid] 50 mcg PO DAILY 08/10/14 [History] amLODIPine [Norvasc] 5 mg PO DAILY tab 11/20/15 [Rx] Lacosamide [Vimpat] 100 mg PO BID 11/24/15 [History] Phenytoin Sodium Extended [Dilantin] 100 mg PO TID #90 cap 01/02/16 [Rx] Atorvastatin Calcium [Lipitor] 40 mg PO HS 04/07/16 [History] Butorphanol Tartrate [Stadol Nasal [place]] 1 spray NASAL Q3-4H PRN 04/07/16 [ History] Potassium Chloride ER [K-Dur 20] 20 meq PO BID #30 tab 08/06/16 [Rx] Ciprofloxacin HCl [Cipro] 500 mg PO Q12HR 08/07/16 [History] LORazepam [Ativan] 0.5 mg PO BID 08/07/16 [History] Magnesium Oxide [Mag-Ox] 200 mg PO BID 08/07/16 [History] Ondansetron Odt [Zofran ODT] 4 mg PO Q8HR PRN 08/07/16 [History] tiZANidine [Zanaflex] 4 mg PO BID 08/07/16 [History] Follow up Appointment(s)/Referral(s): Ayush Mueller MD [Primary Care Provider] - 1 Week Discharge Disposition: HOME SELF-CARE
--- NOTE | 2016-08-09 18:56 | EEG ---
DATE OF SERVICE: 08/09/2016 INDICATION FOR EXAMINATION: This patient is a 46-year-old female being evaluated for intractable migraine headaches. Patient has a right occipital neuritis on examination. Patient also with history of seizure disorder and previous history of viral meningitis. AGE: 46. EEG FINDINGS: A routine 21-channel awake digital EEG recording was accomplished utilizing the 10-20 international system with bipolar and referential montages. The background activity in the most alert resting state consists of a low to medium amplitude, fairly well developed and well sustained 7-8 Hz activity over the posterior head regions. This posterior rhythm attenuates to eye opening. There is a small amount of low amplitude 18-20 Hz beta activity seen maximally over the anterior head regions. Muscle and movement artifact was observed on a few occasions during the tracing. Hyperventilation was not performed. Photic stimulation at flash frequencies of 2-30 Hz produced a good symmetrical occipital driving response. No epileptiform discharges were seen. IMPRESSION: This EEG is within normal limits for the patient's age. The EEG failed to reveal any focal, lateralized or epileptiform abnormalities. Clinical correlation is recommended.
== END 2016-08-09 15:43 | disposition home or self-care (01) | DRG 605 ==
LOC: EC 21:13 → 3MHU 08-08 00:56
PROVIDERS: ADMIT Psychiatry & Neurology Psychiatry; ATTEND Psychiatry & Neurology Psychiatry
PROC: 3E0T33Z Introduction of Anti-inflammatory into Peripheral Nerves and Plexi, Percutaneous Approach (ICD-10-PCS; 2016-08-09)
PROC: 3E0T3CZ (ICD-10-PCS; principal; 2016-08-09 11:00)
DX: S61.511A Laceration without foreign body of right wrist, initial encounter (principal); R45.851 Suicidal ideations; S61.512A Laceration without foreign body of left wrist, initial encounter; X78.1XXA Intentional self-harm by knife, initial encounter; M54.81 Occipital neuralgia; M54.16 Radiculopathy, lumbar region; G89.29 Other chronic pain; S16.1XXA Strain of muscle, fascia and tendon at neck level, initial encounter; F31.9 Bipolar disorder, unspecified; F41.0 Panic disorder [episodic paroxysmal anxiety]; G43.919 Migraine, unspecified, intractable, without status migrainosus; K21.9 Gastro-esophageal reflux disease without esophagitis; I10 Essential (primary) hypertension; E03.9 Hypothyroidism, unspecified; G40.909 Epilepsy, unspecified, not intractable, without status epilepticus; F40.240 Claustrophobia; F17.200 Nicotine dependence, unspecified, uncomplicated; Z90.49 Acquired absence of other specified parts of digestive tract; Z90.710 Acquired absence of both cervix and uterus; Z88.0 Allergy status to penicillin; Z88.8 Allergy status to other drugs, medicaments and biological substances; Z88.1 Allergy status to other antibiotic agents; Z91.040 Latex allergy status; Z79.899 Other long term (current) drug therapy; Y92.002 Bathroom of unspecified non-institutional (private) residence as the place of occurrence of the external cause
CPT/HCPCS: 36415; 64405; 70450; 80053; 80185; 80186; 80306; 80320; 81003; 81025; 82075; 83520; 84443; 85025; 95816

== ENCOUNTER 2016-08-31 23:52 | Emergency (ER) | payer OTHER ==
[2016-09-01 00:02] VITALS: BP 139/92; PULSE 104; RESP 18; TEMP 98
[2016-09-01] MEDS ORDERED: diphenhydrAMINE 50 MG/ML 1 ML VIAL IM STA (00:42)
[2016-09-01] MEDS ORDERED: HYDROmorphone 1 MG/ML 1 ML SYRINGE IM STA (00:42)
[2016-09-01] MEDS ORDERED: PHENYTOIN SODIUM EXTENDED 100 MG CAP PO STA (00:42)
[2016-09-01] MEDS ORDERED: LORazepam 2 MG/ML SYRINGE IM STA (00:42)
--- NOTE | 2016-09-01 00:49 | ED ---
Headache HPI - General Chief Complaint: Headache Stated Complaint: Seizure Time Seen by Provider: 09/01/16 00:35 Source: patient, family, RN notes reviewed Mode of arrival: wheelchair Limitations: no limitations - History of Present Illness Initial Comments: 46-year-old female well-known the emergency room presents today chief complaint headache. Patient has chronic headaches related to her seizures. Patient is out of her Dilantin because her physicians out of town. Patient reportedly has had a few seizures over the last few days. Patient states that her nose spray for her headache is not working at this time. Denies any focal weakness. Denies any nausea vomiting diarrhea constipation. No fevers no chills no trauma. - Related Data Home Medications Medication Instructions Recorded Confirmed Levothyroxine Sodium [Synthroid] 50 mcg PO DAILY 08/10/14 09/01/16 Lacosamide [Vimpat] 100 mg PO BID 11/24/15 09/01/16 Atorvastatin Calcium [Lipitor] 40 mg PO HS 04/07/16 09/01/16 Butorphanol Tartrate [Stadol Nasal 1 spray NASAL Q3-4H PRN 04/07/16 09/01/16 [facility]] LORazepam [Ativan] 0.5 mg PO BID 08/07/16 09/01/16 Ondansetron Odt [Zofran ODT] 4 mg PO Q8HR PRN 08/07/16 09/01/16 Sertraline [Zoloft] 100 mg PO BID 09/01/16 09/01/16 Previous Rx's Medication Instructions Recorded amLODIPine [Norvasc] 5 mg PO DAILY tab 11/20/15 Phenytoin Sodium Extended 100 mg PO TID #90 cap 01/02/16 [Dilantin] Phenytoin Sodium Extended 100 mg PO TID #21 capsule 09/01/16 [Dilantin] Allergies Allergy/AdvReac Type Severity Reaction Status Date / Time gabapentin [From Neurontin] Allergy Itching Verified 09/01/16 00:02 latex Allergy Anaphylaxis Verified 09/01/16 00:02 naproxen [From Naprosyn] Allergy Anaphylaxis Verified 09/01/16 00:02 Penicillins Allergy Anaphylaxis Verified 09/01/16 00:02 quetiapine fumarate Allergy Itching, Verified 09/01/16 00:02 [From Seroquel] leg cramps rofecoxib [From Vioxx] Allergy Itching, Verified 09/01/16 00:02 leg cramps terfenadine [From Seldane] Allergy Rash/Hives Verified 09/01/16 00:02 calcium carbonate [From DHEA] AdvReac Chest Pain Verified 09/01/16 00:02 calcium phosphate,dibasic AdvReac Chest Pain Verified 09/01/16 00:02 [From DHEA] clindamycin AdvReac muscle Verified 09/01/16 00:02 cramps dextromethorphan HBr AdvReac face/neck Verified 09/01/16 00:02 [From NyQuil] flushing diazepam [From Valium] AdvReac Nausea & Verified 09/01/16 00:02 Vomiting doxylamine [From NyQuil] AdvReac face "beet Verified 09/01/16 00:02 red", elevated temp. ibuprofen [From Motrin] AdvReac abdominal Verified 09/01/16 00:02 & muscle cramps indomethacin [From Indocin] AdvReac Abdominal Verified 09/01/16 00:02 Pain,N/V indomethacin sodium AdvReac Abdominal Verified 09/01/16 00:02 [From Indocin] Pain, N/V ketorolac tromethamine AdvReac "built up Verified 09/01/16 00:02 [From Toradol] in system", had to be given something to reverse metoclopramide HCl AdvReac muscle Verified 09/01/16 00:02 [From Reglan] cramps prasterone (DHEA) [From DHEA] AdvReac Chest Pain Verified 09/01/16 00:02 pseudoephedrine HCl AdvReac face "beet Verified 09/01/16 00:02 [From NyQuil] red", elevated temp. sumatriptan [From Imitrex] AdvReac migrane Verified 09/01/16 00:02 sumatriptan succinate AdvReac migrane Verified 09/01/16 00:02 [From Imitrex] topiramate [From Topamax] AdvReac "built up Verified 09/01/16 00:02 in system", had to be given something to reverse tramadol AdvReac Nausea & Verified 09/01/16 00:02 Vomiting trazodone AdvReac "built up Verified 09/01/16 00:02 in system", had to be given something to reverse zolpidem tartrate AdvReac BECOMES Verified 09/01/16 00:02 [From Ambien] VIOLENT WITH NO MEMORY artificial sweetener AdvReac SEVERE Uncoded 09/01/16 00:02 MIGRAINE HEADACHE Review of Systems ROS Statement: Those systems with pertinent positive or pertinent negative responses have been documented in the HPI. ROS Other: All systems not noted in ROS Statement are negative. Past Medical History Past Medical History: GERD/Reflux, Hypertension, Seizure Disorder, Thyroid Disorder Additional Past Medical History / Comment(s): Migraines. Viral MENINGITIS X2, 1993, 2000. CHRONIC BACK PAIN R/T FALL IN 1998. History of Any Multi-Drug Resistant Organisms: None Reported Past Surgical History: Appendectomy, Section, Cholecystectomy, Hysterectomy, Orthopedic Surgery, Tonsillectomy, Tubal Ligation Additional Past Surgical History / Comment(s): Hiatal Hernia, UMB HERNIA Repair. LT ROTATOR REPAIR. TOSHA KNEE SCOPES. Past Anesthesia/Blood Transfusion Reactions: No Reported Reaction Additional Past Anesthesia/Blood Transfusion Reaction / Comment(s): CLAUSTROPHOBIC Past Psychological History: Anxiety, Bipolar, Panic Disorder Smoking Status: Former smoker Past Alcohol Use History: Rare Additional Past Alcohol Use History / Comment(s): SMOKING SINCE 1981, smokes 1/ 4 to 1/2 ppd Past Drug Use History: None Reported - Past Family History Mother Family Medical History: Cancer, Dementia, Diabetes Mellitus, GERD/Reflux, Hyperlipidemia, Hypertension, Thyroid Disorder Additional Family Medical History / Comment(s): quad cabg, cardiac stents, toes amp. Father History Unknown: Yes Family Medical History: No Reported History General Exam Limitations: no limitations General appearance: alert, in no apparent distress Head exam: Present: atraumatic, normocephalic, normal inspection Eye exam: Present: normal appearance, PERRL, EOMI. Absent: scleral icterus, conjunctival injection, periorbital swelling ENT exam: Present: normal exam, normal oropharynx, mucous membranes moist, TM's normal bilaterally, normal external ear exam Neck exam: Present: normal inspection, full ROM. Absent: tenderness, meningismus, lymphadenopathy Respiratory exam: Present: normal lung sounds bilaterally. Absent: respiratory distress, wheezes, rales, rhonchi, stridor Cardiovascular Exam: Present: regular rate, normal rhythm, normal heart sounds. Absent: systolic murmur, diastolic murmur, rubs, gallop, clicks Neurological exam: Present: alert, oriented X3, CN II-XII intact Skin exam: Present: warm, dry, intact, normal color. Absent: rash Course Vital Signs 09/01/16 00:00 Temperature 98.0 F Pulse Rate 104 H Respiratory 18 Rate Blood Pressure 139/92 O2 Sat by Pulse 98 Oximetry Medical Decision Making - Medical Decision Making 46-year-old female presented for headache. Patient has chronic headaches this is not out of the usual for her normal headache. Patient has no neurological deficits. Patient will be given a prescription for her Dilantin. Patient was given Dilantin here and medications for her headache. Return parameters were discussed. Disposition Clinical Impression: Headache, Seizures Disposition: HOME SELF-CARE Condition: Stable Instructions: Acute Headache (ED) Additional Instructions: Please return to the Emergency Department if symptoms worsen or any other concerns. Prescriptions: Phenytoin Sodium Extended [Dilantin] 100 mg PO TID #21 capsule Referrals: Ayush Mueller MD [Primary Care Provider] - 1-2 days Time of Disposition: 00:48
== END 2016-09-01 01:46 | disposition home or self-care (01) ==
LOC: EC 23:52
DX: R51 Headache (principal); R56.9 Unspecified convulsions; I10 Essential (primary) hypertension; E07.9 Disorder of thyroid, unspecified; F31.9 Bipolar disorder, unspecified; F41.9 Anxiety disorder, unspecified; F41.0 Panic disorder [episodic paroxysmal anxiety]; Z87.891 Personal history of nicotine dependence; Z91.040 Latex allergy status; Z88.0 Allergy status to penicillin; Z88.1 Allergy status to other antibiotic agents; Z88.6 Allergy status to analgesic agent; Z88.8 Allergy status to other drugs, medicaments and biological substances; Z91.048 Other nonmedicinal substance allergy status
CPT/HCPCS: 99283; 96372 ×3; J2060; J1200; J1170

== ENCOUNTER 2016-09-23 21:04 | Emergency (ER) | payer OTHER ==
[2016-09-23 21:14] VITALS: BP 132/82; PULSE 95; RESP 16; TEMP 99.4
[2016-09-23] MEDS ORDERED: RX INFO: IV CONTRAST WAS GIVEN 1 EACH MISC MISCELLANE PRN (22:02)
--- NOTE | 2016-09-23 22:12 | ED ---
Eye Problem HPI - General Source: patient, RN notes reviewed, old records reviewed Mode of arrival: ambulatory Limitations: no limitations <Bertha Montyoa - Last Filed: 09/24/16 01:30> <Joni Mclaughlin - Last Filed: 09/24/16 06:59> - General Chief complaint: Eye Problems Stated complaint: Eye Problems Time Seen by Provider: 09/23/16 21:27 - History of Present Illness Initial comments: 46-year-old female presents to the with chief complaint of right eye pain. Patient reports whenever she moves her eye she feels a popping sensation. Patient reports this occurred for the past day and a half. Patient reports that she has a history of migraines. She reports that she also has had some changes in vision. Patient denies any drainage from her eye. Denies any foreign body sensation. Patient states that she has no neck pain or denies any specific headache. Patient reports the pain is only with movement of the eye. She denies any trauma. He reports that there is some pain with bright lights in the right eye as well.Patient denies any recent fever, chills, shortness of breath, chest pain, back pain, abdominal pain, nausea vomiting, numbness or tingling, dysuria or hematuria, constipation or diarrhea,, or any other current symptoms (Bertha Montoya) - Related Data Home Medications Medication Instructions Recorded Confirmed Levothyroxine Sodium [Synthroid] 50 mcg PO DAILY 08/10/14 09/01/16 Lacosamide [Vimpat] 100 mg PO BID 11/24/15 09/01/16 Atorvastatin Calcium [Lipitor] 40 mg PO HS 04/07/16 09/01/16 Butorphanol Tartrate [Stadol Nasal 1 spray NASAL Q3-4H PRN 04/07/16 09/01/16 [place]] LORazepam [Ativan] 0.5 mg PO BID 08/07/16 09/01/16 Ondansetron Odt [Zofran ODT] 4 mg PO Q8HR PRN 08/07/16 09/01/16 Sertraline [Zoloft] 100 mg PO BID 09/01/16 09/01/16 Previous Rx's Medication Instructions Recorded amLODIPine [Norvasc] 5 mg PO DAILY tab 11/20/15 Phenytoin Sodium Extended 100 mg PO TID #90 cap 01/02/16 [Dilantin] Phenytoin Sodium Extended 100 mg PO TID #21 capsule 09/01/16 [Dilantin] Allergies Allergy/AdvReac Type Severity Reaction Status Date / Time gabapentin [From Neurontin] Allergy Itching Verified 09/01/16 00:02 latex Allergy Anaphylaxis Verified 09/01/16 00:02 naproxen [From Naprosyn] Allergy Anaphylaxis Verified 09/01/16 00:02 Penicillins Allergy Anaphylaxis Verified 09/01/16 00:02 quetiapine fumarate Allergy Itching, Verified 09/01/16 00:02 [From Seroquel] leg cramps rofecoxib [From Vioxx] Allergy Itching, Verified 09/01/16 00:02 leg cramps terfenadine [From Seldane] Allergy Rash/Hives Verified 09/01/16 00:02 calcium carbonate [From DHEA] AdvReac Chest Pain Verified 09/01/16 00:02 calcium phosphate,dibasic AdvReac Chest Pain Verified 09/01/16 00:02 [From DHEA] clindamycin AdvReac muscle Verified 09/01/16 00:02 cramps dextromethorphan HBr AdvReac face/neck Verified 09/01/16 00:02 [From NyQuil] flushing diazepam [From Valium] AdvReac Nausea & Verified 09/01/16 00:02 Vomiting doxylamine [From NyQuil] AdvReac face "beet Verified 09/01/16 00:02 red", elevated temp. ibuprofen [From Motrin] AdvReac abdominal Verified 09/01/16 00:02 & muscle cramps indomethacin [From Indocin] AdvReac Abdominal Verified 09/01/16 00:02 Pain,N/V indomethacin sodium AdvReac Abdominal Verified 09/01/16 00:02 [From Indocin] Pain, N/V ketorolac tromethamine AdvReac "built up Verified 09/01/16 00:02 [From Toradol] in system", had to be given something to reverse metoclopramide HCl AdvReac muscle Verified 09/01/16 00:02 [From Reglan] cramps prasterone (DHEA) [From DHEA] AdvReac Chest Pain Verified 09/01/16 00:02 pseudoephedrine HCl AdvReac face "beet Verified 09/01/16 00:02 [From NyQuil] red", elevated temp. sumatriptan [From Imitrex] AdvReac migrane Verified 09/01/16 00:02 sumatriptan succinate AdvReac migrane Verified 09/01/16 00:02 [From Imitrex] topiramate [From Topamax] AdvReac "built up Verified 09/01/16 00:02 in system", had to be given something to reverse tramadol AdvReac Nausea & Verified 09/01/16 00:02 Vomiting trazodone AdvReac "built up Verified 09/01/16 00:02 in system", had to be given something to reverse zolpidem tartrate AdvReac BECOMES Verified 09/01/16 00:02 [From Ambien] VIOLENT WITH NO MEMORY artificial sweetener AdvReac SEVERE Uncoded 09/01/16 00:02 MIGRAINE HEADACHE Review of Systems ROS Other: All systems not noted in ROS Statement are negative. <Bertha Montoya - Last Filed: 09/24/16 01:30> ROS Other: All systems not noted in ROS Statement are negative. <Joni Mclaughlin - Last Filed: 09/24/16 06:59> ROS Statement: Those systems with pertinent positive or pertinent negative responses have been documented in the HPI. Past Medical History Past Medical History: Hypertension, Seizure Disorder, Thyroid Disorder Additional Past Medical History / Comment(s): Migraines. Viral MENINGITIS X2, 1993, 2000. CHRONIC BACK PAIN R/T FALL IN 1998. History of Any Multi-Drug Resistant Organisms: None Reported Past Surgical History: Appendectomy, Section, Cholecystectomy, Hysterectomy, Orthopedic Surgery, Tonsillectomy, Tubal Ligation Additional Past Surgical History / Comment(s): Hiatal Hernia, UMB HERNIA Repair. LT ROTATOR REPAIR. TOSHA KNEE SCOPES. Past Anesthesia/Blood Transfusion Reactions: No Reported Reaction Additional Past Anesthesia/Blood Transfusion Reaction / Comment(s): CLAUSTROPHOBIC Past Psychological History: Anxiety, Bipolar, Panic Disorder Smoking Status: Current every day smoker Past Alcohol Use History: Rare Past Drug Use History: None Reported - Past Family History Mother Family Medical History: Cancer, Dementia, Diabetes Mellitus, GERD/Reflux, Hyperlipidemia, Hypertension, Thyroid Disorder Additional Family Medical History / Comment(s): quad cabg, cardiac stents, toes amp. Father History Unknown: Yes Family Medical History: No Reported History <Bertha Montoya - Last Filed: 09/24/16 01:30> General Exam Limitations: no limitations General appearance: alert, in no apparent distress Head exam: Present: atraumatic, normocephalic, normal inspection Eye exam: Present: normal appearance, PERRL. Absent: EOMI (Difficult to perform extraocular eye movements is patient reports pain and a popping sensation with each movement of the right eye.), scleral icterus, conjunctival injection, periorbital swelling Expanded Eyelids: Normal Inspection: Bilateral Pupils: Regular, Round: Bilateral, Reactive: Bilateral Sclera/Conjunctival: Normal Inspection: Bilateral Anterior chamber: Normal Inspection: Bilateral Posterior chamber: Normal Inspection: Bilateral (No evidence of retinal hemorrhage or retinal detachment. ) Visual acuity (R) = 20/: 70 Visual acuity (L) = 20/: 25 With correction: No IOP (R) in mmH IOP (L) in mmH IOP measured with: Tonopen ENT exam: Present: normal exam, normal oropharynx, mucous membranes moist Neck exam: Present: normal inspection. Absent: tenderness, meningismus, lymphadenopathy Respiratory exam: Present: normal lung sounds bilaterally. Absent: respiratory distress, wheezes, rales, rhonchi, stridor Cardiovascular Exam: Present: regular rate, normal rhythm, normal heart sounds. Absent: systolic murmur, diastolic murmur, rubs, gallop, clicks GI/Abdominal exam: Present: soft, normal bowel sounds. Absent: distended, tenderness, guarding, rebound, rigid Extremities exam: Present: normal inspection, full ROM, normal capillary refill. Absent: tenderness, pedal edema, joint swelling, calf tenderness Back exam: Present: normal inspection Neurological exam: Present: alert, oriented X3, CN II-XII intact Psychiatric exam: Present: normal affect, normal mood Skin exam: Present: warm, dry, intact, normal color. Absent: rash <Bertha Montoya - Last Filed: 09/24/16 01:30> <Joni Mclaughlin - Last Filed: 09/24/16 06:59> - General Exam Comments Initial Comments: 46-year-old female. No acute distress. (Bertha Montoya) Course <Bertha Montoya - Last Filed: 09/24/16 01:30> <Joni Mclaughlin - Last Filed: 09/24/16 06:59> Vital Signs 09/23/16 21:10 Temperature 99.4 F Pulse Rate 95 Respiratory 16 Rate Blood Pressure 132/82 O2 Sat by Pulse 98 Oximetry - Reevaluation(s) Reevaluation #1: 09/23/16 23:39 Patient was reevaluated and still states that there is pain in her eye. Patient continues to report this popping sensation. Patient will be given 1 mg of Dilaudid IM per Dr. Fuchs. We'll reevaluate the patient. (Bertha Montoya) Reevaluation #2: 09/23/16 23:47 Patient case endorsed to Dr. Fuchs at 11:47 PM. (Bertha Montoya) Medical Decision Making - Radiology Data Radiology results: report reviewed <Bertha Montoya - Last Filed: 09/24/16 01:30> <Joni Mclaughlin - Last Filed: 09/24/16 06:59> - Medical Decision Making 46-year-old female presents to the with chief complaint of right eye pain. Patient reports whenever she moves her eye she feels a popping sensation. Patient reports this occurred for the past day and a half. Patient reports that she has a history of migraines. She reports that she also has had some changes in vision. Patient denies any drainage from her eye. Denies any foreign body sensation. Patient states that she has no neck pain or denies any specific headache. Patient reports the pain is only with movement of the eye. It is difficult to perform extraocular eye movements of the patient due to the pain in her right eye. Patient reports each movement causes a popping sensation. Ophthalmic eye exam was performed but limited due to pain with bright light in the eye. No evidence of retinal detachment or hemorrhage noted. Patient reports no pain in the right eye with bright light is shown in the left eye. CT brain and orbits was reviewed and negative for any acute process. Discussed this case with Dr. Fuchs at 11:38 PM. He states that he can try to give her something for her headache and then reevaluate the patient afterward. If patient is still symptomatic we will transfer the patient to see an soil fertility specialist. (Bertha Montoya) The patient's symptoms were improved but not resolved. We want to have her evaluated tonight by ophthalmology, but the patient is refusing and sign out AMA. She wants the soil fertility specialist in the morning. Discussed the possible sequela of not having emergent ophthalmologic consultation, but the patient decided to go home and was cognizant of the risks. (Joni Mclaughlin) - Radiology Data CT brain and orbits is negative for any acute process. (Bertha Montoya) Disposition <Bertha Montoya - Last Filed: 09/24/16 01:30> <Joni Mclaughlin - Last Filed: 09/24/16 06:59> Clinical Impression: Headache, Vision loss Disposition: Left Against Medical Advice Condition: Undetermined Instructions: Acute Headache (ED) Referrals: Ayush Mueller MD [Primary Care Provider] - 1-2 days Alexander Cheng MD [STAFF PHYSICIAN] - 1-2 days
--- NOTE | 2016-09-23 23:28 | CT ---
EXAM: CT Head Without Intravenous Contrast CLINICAL HISTORY: Reason: Pain TECHNIQUE: Axial computed tomography images of the head/brain without intravenous contrast. CTDI is 60.3 mGy and DLP is 989.4 mGy-cm. This CT exam was performed using one or more of the following dose reduction techniques: automated exposure control, adjustment of the mA and/or kV according to patient size, and/or use of iterative reconstruction technique. COMPARISON: CT head 04/08/2016 FINDINGS: Artifacts: Metallic artifact emanates from right ear piercing. Brain: No evidence of acute cerebral infarction or intracranial hemorrhage. No abnormal extra-axial collections identified. Ventricles: Ventricles are of normal size and configuration. No abnormal mass effect or midline shift. Bones/joints: No evidence of skull fracture Sinuses: Imaged paranasal and mastoid sinuses are unremarkable. Mastoid air cells: See above. IMPRESSION: No evidence of acute intracranial abnormality.
[2016-09-23] MEDS ORDERED: HYDROmorphone 1 MG/ML 1 ML SYRINGE IM STA (23:35)
--- NOTE | 2016-09-23 23:35 | CT ---
EXAM: CT Orbits Without Intravenous Contrast CLINICAL HISTORY: Reason: Pain TECHNIQUE: Axial computed tomography images of the orbits without intravenous contrast. CTDI is 30.6 mGy and DLP is 453.0 mGy-cm. This CT exam was performed using one or more of the following dose reduction techniques: automated exposure control, adjustment of the mA and/or kV according to patient size, and/or use of iterative reconstruction technique. COMPARISON: No relevant prior studies available. FINDINGS: Orbits: Globes are bilaterally symmetric. Optic nerves are not enlarged. Extraocular muscles are unremarkable bilaterally with no abnormal thickening. No abnormal orbital masses. No orbital inflammatory changes or fluid collections identified. Sinuses: Paranasal sinuses are clear. Bones/joints: No evidence of orbital fracture. Soft tissues: See above. IMPRESSION: Unremarkable CT orbits.
== END 2016-09-24 01:42 | disposition left against medical advice (07) ==
LOC: EC 21:04
DX: R51 Headache (principal); H54.7 Unspecified visual loss; I10 Essential (primary) hypertension; E07.9 Disorder of thyroid, unspecified; F31.9 Bipolar disorder, unspecified; F17.200 Nicotine dependence, unspecified, uncomplicated; Z91.040 Latex allergy status; Z88.1 Allergy status to other antibiotic agents; Z88.8 Allergy status to other drugs, medicaments and biological substances; Z88.6 Allergy status to analgesic agent; Z91.02 Food additives allergy status; Z53.09 Procedure and treatment not carried out because of other contraindication; Z79.899 Other long term (current) drug therapy
CPT/HCPCS: 99284; 96372; 70450; 70480; J1170

== ENCOUNTER 2016-10-16 19:41 | Emergency (ER) | payer OTHER ==
[2016-10-16 19:49] VITALS: RESP 18
[2016-10-16] MEDS ORDERED: ONDANSETRON 4 MG/2 ML VIAL IVP STA ×2 (19:57→21:22)
[2016-10-16] MEDS ORDERED: diphenhydrAMINE 50 MG/ML 1 ML VIAL IVP STA (19:57)
[2016-10-16] MEDS ORDERED: HYDROmorphone 1 MG/ML 1 ML SYRINGE IVP STA ×2 (19:57→21:41)
[2016-10-16] MEDS ORDERED: SODIUM CHLORIDE 0.9% 1,000 ML IV STA (19:57)
--- NOTE | 2016-10-16 20:08 | ED ---
Headache HPI - General Chief Complaint: Headache Stated Complaint: Migraine Time Seen by Provider: 10/16/16 19:54 Source: RN notes reviewed Mode of arrival: ambulatory Limitations: no limitations - History of Present Illness Initial Comments: 46 yo female presents to the ER with cc of headache. Patient has a long history of migraines. Patient states is much like her normal migraine. Patient states it's been going on for about 3 days and slowly getting worse. Patient states that she has had no relief at home. Patient states she is out of her Fioricet. Patient states she was concerned due to her worsening migraine so she thought that she should be evaluated. Patient states that she is not currently having any other symptoms at this time. Patient denies any recent fever, chills, shortness of breath, chest pain, back pain, abdominal pain, nausea vomiting, numbness or tingling, dysuria or hematuria, constipation or diarrhea, visual changes, or any other current symptoms. - Related Data Home Medications Medication Instructions Recorded Confirmed Levothyroxine Sodium [Synthroid] 50 mcg PO DAILY 08/10/14 10/16/16 Lacosamide [Vimpat] 100 mg PO BID 11/24/15 10/16/16 Atorvastatin Calcium [Lipitor] 40 mg PO HS 04/07/16 10/16/16 LORazepam [Ativan] 0.5 mg PO BID PRN 08/07/16 10/16/16 [id number]-AUL-Rpddhtc-Codeine 1 cap PO Q12H PRN 10/16/16 10/16/16 [Fiorinal w/Cod [id number]] Fluorometholone [Fml Forte] 1 drop RIGHT EYE QID 10/16/16 10/16/16 Zolpidem [Ambien] 10 mg PO HS 10/16/16 10/16/16 Previous Rx's Medication Instructions Recorded amLODIPine [Norvasc] 5 mg PO DAILY tab 11/20/15 Phenytoin Sodium Extended 100 mg PO TID #21 capsule 09/01/16 [Dilantin] Allergies Allergy/AdvReac Type Severity Reaction Status Date / Time gabapentin [From Neurontin] Allergy Itching Verified 10/16/16 19:49 latex Allergy Anaphylaxis Verified 10/16/16 19:49 naproxen [From Naprosyn] Allergy Anaphylaxis Verified 10/16/16 19:49 Penicillins Allergy Anaphylaxis Verified 10/16/16 19:49 quetiapine fumarate Allergy Itching, Verified 10/16/16 19:49 [From Seroquel] leg cramps rofecoxib [From Vioxx] Allergy Itching, Verified 10/16/16 19:49 leg cramps terfenadine [From Seldane] Allergy Rash/Hives Verified 10/16/16 19:49 calcium carbonate [From DHEA] AdvReac Chest Pain Verified 10/16/16 19:49 calcium phosphate,dibasic AdvReac Chest Pain Verified 10/16/16 19:49 [From DHEA] clindamycin AdvReac muscle Verified 10/16/16 19:49 cramps dextromethorphan HBr AdvReac face/neck Verified 10/16/16 19:49 [From NyQuil] flushing diazepam [From Valium] AdvReac Nausea & Verified 10/16/16 19:49 Vomiting doxylamine [From NyQuil] AdvReac face "beet Verified 10/16/16 19:49 red", elevated temp. ibuprofen [From Motrin] AdvReac abdominal Verified 10/16/16 19:49 & muscle cramps indomethacin [From Indocin] AdvReac Abdominal Verified 10/16/16 19:49 Pain,N/V ketorolac tromethamine AdvReac "built up Verified 10/16/16 19:49 [From Toradol] in system", had to be given something to reverse metoclopramide HCl AdvReac muscle Verified 10/16/16 19:49 [From Reglan] cramps prasterone (DHEA) [From DHEA] AdvReac Chest Pain Verified 10/16/16 19:49 pseudoephedrine HCl AdvReac face "beet Verified 10/16/16 19:49 [From NyQuil] red", elevated temp. sumatriptan [From Imitrex] AdvReac migrane Verified 10/16/16 19:49 sumatriptan succinate AdvReac migrane Verified 10/16/16 19:49 [From Imitrex] topiramate [From Topamax] AdvReac "built up Verified 10/16/16 19:49 in system", had to be given something to reverse tramadol AdvReac Nausea & Verified 10/16/16 19:49 Vomiting trazodone AdvReac "built up Verified 10/16/16 19:49 in system", had to be given something to reverse zolpidem tartrate AdvReac "Became Verified 10/16/16 20:50 [From Ambien] violent with no memory" artificial sweetener AdvReac SEVERE Uncoded 10/16/16 19:49 MIGRAINE HEADACHE Review of Systems ROS Statement: Those systems with pertinent positive or pertinent negative responses have been documented in the HPI. ROS Other: All systems not noted in ROS Statement are negative. Past Medical History Past Medical History: Hyperlipidemia, Hypertension, Seizure Disorder, Thyroid Disorder Additional Past Medical History / Comment(s): Migraines. Viral MENINGITIS X2, 1993, 2000. CHRONIC BACK PAIN R/T FALL IN 1998. History of Any Multi-Drug Resistant Organisms: None Reported Past Surgical History: Appendectomy, Section, Cholecystectomy, Hernia Repair, Hysterectomy, Orthopedic Surgery, Tonsillectomy, Tubal Ligation Additional Past Surgical History / Comment(s): Hiatal Hernia, UMB HERNIA Repair. LT ROTATOR REPAIR. TOSHA KNEE SCOPES. Past Anesthesia/Blood Transfusion Reactions: No Reported Reaction Additional Past Anesthesia/Blood Transfusion Reaction / Comment(s): CLAUSTROPHOBIC Past Psychological History: Anxiety, Bipolar, Panic Disorder Smoking Status: Current every day smoker Past Alcohol Use History: Rare Past Drug Use History: None Reported - Past Family History Mother Family Medical History: Cancer, Dementia, Diabetes Mellitus, GERD/Reflux, Hyperlipidemia, Hypertension, Thyroid Disorder Additional Family Medical History / Comment(s): quad cabg, cardiac stents, toes amp. Father History Unknown: Yes Family Medical History: No Reported History General Exam - General Exam Comments Initial Comments: General: The patient is awake and alert, in no distress, and does not appear acutely ill. Eye: Pupils are equal, round and reactive to light, extra-ocular movements are intact; there is normal conjunctiva bilaterally. No signs of icterus. Ears, nose, mouth and throat: There are moist mucous membranes. Neck: The neck is supple, there is no tenderness. Cardiovascular: There is a regular rate and rhythm. No murmur, rub or gallop is appreciated. Respiratory: Lungs are clear to auscultation, respirations are non-labored, breath sounds are equal. No wheezes, stridor, rales, or rhonchi. Gastrointestinal: Soft, non-distended, non-tender abdomen without masses or organomegaly noted. There is no rebound or guarding present. No CVA tenderness. Bowel sounds are unremarkable. Back: There is no tenderness to palpation in the midline. There is no obvious deformity. No rashes noted. Musculoskeletal: Normal ROM, no tenderness, There is no pedal edema. There is no calf tenderness or swelling. Sensation intact. Pulses equal bilaterally 2+. Neurological: CN II-XII intact, There are no obvious motor or sensory deficits. Coordination appears grossly intact. Speech is normal. Skin: Skin is warm and dry and no rashes or lesions are noted. Psychiatric: Cooperative, appropriate mood & affect, normal judgment. Limitations: no limitations Course Vital Signs 10/16/16 10/16/16 19:45 20:50 Temperature 98.4 F Pulse Rate 104 H 89 Respiratory 18 18 Rate Blood Pressure 131/90 142/98 O2 Sat by Pulse 98 94 L Oximetry Medical Decision Making - Medical Decision Making 46-year-old female presents to the emergency department with a chief complaint of headache. This time patient's headache has improved. At this time we discussed we will discharge her home. Discussed follow-up with Dr. molina parameters all questions. Patient stated that she understood and she is in agreement with plan. All questions have been answered. Disposition Clinical Impression: Headache Disposition: HOME SELF-CARE Condition: Stable Instructions: Acute Headache (ED) Additional Instructions: Please use medication as discussed. Please follow up with family doctor if symptoms have not improved over the next two days. Please return to the emergency room if your symptoms increase or worsen or for any other concerns. Referrals: Ayush Mueller MD [Primary Care Provider] - 1-2 days Time of Disposition: 21:43
[2016-10-16 22:00] VITALS: BP 149/95; PULSE 87; TEMP 97.6
== END 2016-10-16 21:59 | disposition home or self-care (01) ==
LOC: EC 19:41
DX: R51 Headache (principal); E07.9 Disorder of thyroid, unspecified; G43.909 Migraine, unspecified, not intractable, without status migrainosus; E78.5 Hyperlipidemia, unspecified; F41.9 Anxiety disorder, unspecified; G40.909 Epilepsy, unspecified, not intractable, without status epilepticus; Z79.899 Other long term (current) drug therapy; Z88.6 Allergy status to analgesic agent; Z88.1 Allergy status to other antibiotic agents; Z88.5 Allergy status to narcotic agent; Z88.0 Allergy status to penicillin; Z88.8 Allergy status to other drugs, medicaments and biological substances; Z79.82 Long term (current) use of aspirin; Z79.52 Long term (current) use of systemic steroids; F17.200 Nicotine dependence, unspecified, uncomplicated; I10 Essential (primary) hypertension
CPT/HCPCS: 99283; 96374; 96375; 96361; J1200; J2405; J1170

== ENCOUNTER 2016-10-24 17:54 | Emergency (ER) | payer OTHER ==
[2016-10-24] MEDS ORDERED: diphenhydrAMINE 50 MG/ML 1 ML VIAL IVP STA (18:24)
[2016-10-24] MEDS ORDERED: SODIUM CHLORIDE 0.9% 1,000 ML IV STA (18:24)
[2016-10-24] MEDS ORDERED: HYDROmorphone 1 MG/ML 1 ML SYRINGE IVP STA ×2 (18:25→20:16)
[2016-10-24] MEDS ORDERED: ONDANSETRON 4 MG/2 ML VIAL IVP STA (18:25)
--- NOTE | 2016-10-24 18:31 | ED ---
General Adult HPI - General Chief complaint: Headache Stated complaint: migraine Time Seen by Provider: 10/24/16 18:20 Source: patient, RN notes reviewed Mode of arrival: ambulatory Limitations: no limitations - History of Present Illness Initial comments: 46-year-old female presents to the emergency department with a chief complaint of headache. Patient has a long history of migraines and states this is much like her normal migraine. Patient states that it slowly gotten worse over the last few hours it started about 1 day now. Patient states she hasn't had any vomiting but she did state that she has been feeling nauseous with this. Patient denies any fever chills with this. Patient states that she light sensitivity without any sensitivity to sound. Patient states exactly like her typical headaches. Patient denies any other symptoms.Patient denies any recent fever, chills, shortness of breath, chest pain, back pain, abdominal pain, nausea vomiting, numbness or tingling, dysuria or hematuria, constipation or diarrhea, headaches or visual changes, or any other current symptoms. - Related Data Home Medications Medication Instructions Recorded Confirmed Levothyroxine Sodium [Synthroid] 50 mcg PO DAILY 08/10/14 10/24/16 Lacosamide [Vimpat] 100 mg PO BID 11/24/15 10/24/16 Atorvastatin Calcium [Lipitor] 40 mg PO HS 04/07/16 10/24/16 LORazepam [Ativan] 0.5 mg PO BID PRN 08/07/16 10/24/16 Vgmviyaeyd-UOJ-Imehsuz-Codeine 1 cap PO Q12H PRN 10/16/16 10/24/16 [Fiorinal w/Cod 50-705-25-30MG] Fluorometholone [Fml Forte] 1 drop RIGHT EYE QID 10/16/16 10/24/16 Zolpidem [Ambien] 10 mg PO HS 10/16/16 10/24/16 Previous Rx's Medication Instructions Recorded amLODIPine [Norvasc] 5 mg PO DAILY tab 11/20/15 Phenytoin Sodium Extended 100 mg PO TID #21 capsule 09/01/16 [Dilantin] Allergies Allergy/AdvReac Type Severity Reaction Status Date / Time gabapentin [From Neurontin] Allergy Itching Verified 10/24/16 18:28 latex Allergy Anaphylaxis Verified 10/24/16 18:28 naproxen [From Naprosyn] Allergy Anaphylaxis Verified 10/24/16 18:28 Penicillins Allergy Anaphylaxis Verified 10/24/16 18:28 quetiapine fumarate Allergy Itching, Verified 10/24/16 18:28 [From Seroquel] leg cramps rofecoxib [From Vioxx] Allergy Itching, Verified 10/24/16 18:28 leg cramps terfenadine [From Seldane] Allergy Rash/Hives Verified 10/24/16 18:28 calcium carbonate [From DHEA] AdvReac Chest Pain Verified 10/24/16 18:28 calcium phosphate,dibasic AdvReac Chest Pain Verified 10/24/16 18:28 [From DHEA] clindamycin AdvReac muscle Verified 10/24/16 18:28 cramps dextromethorphan HBr AdvReac face/neck Verified 10/24/16 18:28 [From NyQuil] flushing diazepam [From Valium] AdvReac Nausea & Verified 10/24/16 18:28 Vomiting doxylamine [From NyQuil] AdvReac face "beet Verified 10/24/16 18:28 red", elevated temp. ibuprofen [From Motrin] AdvReac abdominal Verified 10/24/16 18:28 & muscle cramps indomethacin [From Indocin] AdvReac Abdominal Verified 10/24/16 18:28 Pain,N/V ketorolac tromethamine AdvReac "built up Verified 10/24/16 18:28 [From Toradol] in system", had to be given something to reverse metoclopramide HCl AdvReac muscle Verified 10/24/16 18:28 [From Reglan] cramps prasterone (DHEA) [From DHEA] AdvReac Chest Pain Verified 10/24/16 18:28 pseudoephedrine HCl AdvReac face "beet Verified 10/24/16 18:28 [From NyQuil] red", elevated temp. sumatriptan [From Imitrex] AdvReac migrane Verified 10/24/16 18:28 sumatriptan succinate AdvReac migrane Verified 10/24/16 18:28 [From Imitrex] topiramate [From Topamax] AdvReac "built up Verified 10/24/16 18:28 in system", had to be given something to reverse tramadol AdvReac Nausea & Verified 10/24/16 18:28 Vomiting trazodone AdvReac "built up Verified 10/24/16 18:28 in system", had to be given something to reverse zolpidem tartrate AdvReac "Became Verified 10/24/16 18:28 [From Ambien] violent with no memory" artificial sweetener AdvReac SEVERE Uncoded 10/24/16 18:17 MIGRAINE HEADACHE Review of Systems ROS Statement: Those systems with pertinent positive or pertinent negative responses have been documented in the HPI. ROS Other: All systems not noted in ROS Statement are negative. Past Medical History Past Medical History: Hyperlipidemia, Hypertension, Seizure Disorder, Thyroid Disorder Additional Past Medical History / Comment(s): Migraines. Viral MENINGITIS X2, 1993, 2000. CHRONIC BACK PAIN R/T FALL IN 1998. History of Any Multi-Drug Resistant Organisms: None Reported Past Surgical History: Appendectomy, Section, Cholecystectomy, Hernia Repair, Hysterectomy, Orthopedic Surgery, Tonsillectomy, Tubal Ligation Additional Past Surgical History / Comment(s): Hiatal Hernia, UMB HERNIA Repair. LT ROTATOR REPAIR. TOSHA KNEE SCOPES. Past Anesthesia/Blood Transfusion Reactions: No Reported Reaction Additional Past Anesthesia/Blood Transfusion Reaction / Comment(s): CLAUSTROPHOBIC Past Psychological History: Anxiety, Bipolar, Panic Disorder Smoking Status: Current every day smoker Past Alcohol Use History: Rare Past Drug Use History: None Reported - Past Family History Mother Family Medical History: Cancer, Dementia, Diabetes Mellitus, GERD/Reflux, Hyperlipidemia, Hypertension, Thyroid Disorder Additional Family Medical History / Comment(s): quad cabg, cardiac stents, toes amp. Father History Unknown: Yes Family Medical History: No Reported History General Exam - General Exam Comments Initial Comments: General: The patient is awake and alert, in no distress, and does not appear acutely ill. Eye: Pupils are equal, round and reactive to light, extra-ocular movements are intact; there is normal conjunctiva bilaterally. No signs of icterus. Ears, nose, mouth and throat: There are moist mucous membranes. Neck: The neck is supple, there is no tenderness. Respiratory: Lungs are clear to auscultation, respirations are non-labored, breath sounds are equal. No wheezes, stridor, rales, or rhonchi. Back: There is no tenderness to palpation in the midline. There is no obvious deformity. No rashes noted. Musculoskeletal: Normal ROM, no tenderness, There is no pedal edema. There is no calf tenderness or swelling. Sensation intact. Pulses equal bilaterally 2+. Neurological: CN II-XII intact, There are no obvious motor or sensory deficits. Coordination appears grossly intact. Speech is normal. Skin: Skin is warm and dry and no rashes or lesions are noted. Psychiatric: Cooperative, appropriate mood & affect, normal judgment. Limitations: no limitations Course Vital Signs 10/24/16 10/24/16 10/24/16 18:14 19:10 20:52 Temperature 99.1 F 98.5 F 98.4 F Pulse Rate 101 H 79 78 Respiratory 18 18 16 Rate Blood Pressure 149/108 149/100 152/97 O2 Sat by Pulse 98 98 96 Oximetry - Reevaluation(s) Reevaluation #1: 10/24/16 20:16 Patient was reassessed and states that she is feeling better at this time. Reevaluation #2: 10/24/16 20:17 Patient was found to be hypertensive as well during her stay here. This does improve during her stay We discussed follow-up with her doctor. Patient states that she understood. Medical Decision Making - Medical Decision Making 46-year-old female presents to the emergency department chief complaint of chronic headache. At this time the patient has received headache medications and has had improvement with her headache. This time we discussed continued outpatient follow-up with her doctor. We discussed return parameters all patient's questions. He stated the [facility] management with this plan. At this time they will be discharged home. Disposition Clinical Impression: Headache, Hypertension Disposition: HOME SELF-CARE Condition: Stable Instructions: Acute Headache (ED) Additional Instructions: Please use medication as discussed. Please follow up with family doctor if symptoms have not improved over the next two days. Please return to the emergency room if your symptoms increase or worsen or for any other concerns. Referrals: Ayush Mueller MD [Primary Care Provider] - 1-2 days Time of Disposition: 20:56
[2016-10-24] MEDS ORDERED: ENALAPRILAT 1.25 MG/ML 1 ML VIAL IVP STA (20:16)
[2016-10-24 21:22] VITALS: BP 145/93; PULSE 81; RESP 18; TEMP 98
== END 2016-10-24 21:24 | disposition home or self-care (01) ==
LOC: EC 17:54
DX: R51 Headache (principal); I10 Essential (primary) hypertension; E07.9 Disorder of thyroid, unspecified; E78.5 Hyperlipidemia, unspecified; G40.909 Epilepsy, unspecified, not intractable, without status epilepticus; F17.200 Nicotine dependence, unspecified, uncomplicated; Z86.19 Personal history of other infectious and parasitic diseases; Z86.69 Personal history of other diseases of the nervous system and sense organs; Z79.899 Other long term (current) drug therapy; Z88.0 Allergy status to penicillin; Z88.1 Allergy status to other antibiotic agents; Z88.6 Allergy status to analgesic agent; Z88.8 Allergy status to other drugs, medicaments and biological substances; Z91.018 Allergy to other foods; Z91.040 Latex allergy status
CPT/HCPCS: 99283; 96374; 96375 ×2; 96376; J1200; J2405; J1170

== ENCOUNTER 2016-10-28 14:29 | Emergency (ER) | payer OTHER ==
[2016-10-28 14:43] VITALS: RESP 18
[2016-10-28] MEDS ORDERED: PROCHLORPERAZINE 10 MG TAB PO STA (15:37)
[2016-10-28] MEDS ORDERED: HYDROmorphone 2 MG/ML 1 ML SYRINGE IM STA ×2 (15:37→17:18)
[2016-10-28] MEDS ORDERED: diphenhydrAMINE 50 MG CAP PO STA (15:37)
--- NOTE | 2016-10-28 15:41 | ED ---
General Adult HPI - General Chief complaint: Eye Problems Stated complaint: migraine/eye pain Time Seen by Provider: 10/28/16 15:06 Source: patient, RN notes reviewed, old records reviewed Mode of arrival: wheelchair Limitations: no limitations - History of Present Illness Initial comments: This is a 46-year-old female to the ER for evaluation. Patient presents here for evaluation of severe headache, and migraine with vision changes. Patient has history of migraines and vision changes secondary to her migraines. Patient was at her neurologist's office this morning and was scheduled from some outpatient testing and different pain control options. Patient states this event happened about an hour after leaving her neurologist's office. She states this is nothing new, she has a history of SAME symptoms. And is currently going through evaluation. Patient again denies trauma or other neurological deficit - Related Data Home Medications Medication Instructions Recorded Confirmed Levothyroxine Sodium [Synthroid] 50 mcg PO DAILY 08/10/14 10/28/16 Lacosamide [Vimpat] 100 mg PO BID 11/24/15 10/28/16 Atorvastatin Calcium [Lipitor] 40 mg PO HS 04/07/16 10/28/16 LORazepam [Ativan] 0.5 mg PO BID PRN 08/07/16 10/28/16 Fluorometholone [Fml Forte] 1 drop RIGHT EYE QID 10/16/16 10/28/16 Zolpidem [Ambien] 10 mg PO HS 10/16/16 10/28/16 Butalb/APAP/Caff 50-325-40Mg 2 tab PO BID PRN 10/28/16 10/28/16 [Fioricet 50-325-40] Previous Rx's Medication Instructions Recorded amLODIPine [Norvasc] 5 mg PO DAILY tab 11/20/15 Phenytoin Sodium Extended 100 mg PO TID #21 capsule 09/01/16 [Dilantin] Allergies Allergy/AdvReac Type Severity Reaction Status Date / Time gabapentin [From Neurontin] Allergy Itching Verified 10/28/16 15:13 latex Allergy Anaphylaxis Verified 10/28/16 15:13 naproxen [From Naprosyn] Allergy Anaphylaxis Verified 10/28/16 15:13 Penicillins Allergy Anaphylaxis Verified 10/28/16 15:13 quetiapine fumarate Allergy Itching, Verified 10/28/16 15:13 [From Seroquel] leg cramps rofecoxib [From Vioxx] Allergy Itching, Verified 10/28/16 15:13 leg cramps terfenadine [From Seldane] Allergy Rash/Hives Verified 10/28/16 15:13 calcium carbonate [From DHEA] AdvReac Chest Pain Verified 10/28/16 15:13 calcium phosphate,dibasic AdvReac Chest Pain Verified 10/28/16 15:13 [From DHEA] clindamycin AdvReac muscle Verified 10/28/16 15:13 cramps dextromethorphan HBr AdvReac face/neck Verified 10/28/16 15:13 [From NyQuil] flushing diazepam [From Valium] AdvReac Nausea & Verified 10/28/16 15:13 Vomiting doxylamine [From NyQuil] AdvReac face "beet Verified 10/28/16 15:13 red", elevated temp. ibuprofen [From Motrin] AdvReac abdominal Verified 10/28/16 15:13 & muscle cramps indomethacin [From Indocin] AdvReac Abdominal Verified 10/28/16 15:13 Pain,N/V ketorolac tromethamine AdvReac "built up Verified 10/28/16 15:13 [From Toradol] in system", had to be given something to reverse metoclopramide HCl AdvReac muscle Verified 10/28/16 15:13 [From Reglan] cramps prasterone (DHEA) [From DHEA] AdvReac Chest Pain Verified 10/28/16 15:13 pseudoephedrine HCl AdvReac face "beet Verified 10/28/16 15:13 [From NyQuil] red", elevated temp. sumatriptan [From Imitrex] AdvReac migrane Verified 10/28/16 15:13 sumatriptan succinate AdvReac migrane Verified 10/28/16 15:13 [From Imitrex] topiramate [From Topamax] AdvReac "built up Verified 10/28/16 15:13 in system", had to be given something to reverse tramadol AdvReac Nausea & Verified 10/28/16 15:13 Vomiting trazodone AdvReac "built up Verified 10/28/16 15:13 in system", had to be given something to reverse zolpidem tartrate AdvReac "Became Verified 10/28/16 15:13 [From Ambien] violent with no memory" artificial sweetener AdvReac SEVERE Uncoded 10/28/16 14:43 MIGRAINE HEADACHE Review of Systems ROS Statement: Those systems with pertinent positive or pertinent negative responses have been documented in the HPI. ROS Other: All systems not noted in ROS Statement are negative. Past Medical History Past Medical History: Hyperlipidemia, Hypertension, Seizure Disorder, Thyroid Disorder Additional Past Medical History / Comment(s): Migraines. Viral MENINGITIS X2, 1993, 2000. CHRONIC BACK PAIN R/T FALL IN 1998. History of Any Multi-Drug Resistant Organisms: None Reported Past Surgical History: Appendectomy, Section, Cholecystectomy, Hernia Repair, Hysterectomy, Orthopedic Surgery, Tonsillectomy, Tubal Ligation Additional Past Surgical History / Comment(s): Hiatal Hernia, UMB HERNIA Repair. LT ROTATOR REPAIR. TOSHA KNEE SCOPES. Past Anesthesia/Blood Transfusion Reactions: No Reported Reaction Additional Past Anesthesia/Blood Transfusion Reaction / Comment(s): CLAUSTROPHOBIC Past Psychological History: Anxiety, Bipolar, Panic Disorder Smoking Status: Current every day smoker Past Alcohol Use History: Rare Past Drug Use History: None Reported - Past Family History Mother Family Medical History: Cancer, Dementia, Diabetes Mellitus, GERD/Reflux, Hyperlipidemia, Hypertension, Thyroid Disorder Additional Family Medical History / Comment(s): quad cabg, cardiac stents, toes amp. Father History Unknown: Yes Family Medical History: No Reported History General Exam Limitations: no limitations General appearance: alert, in no apparent distress Head exam: Present: atraumatic, normocephalic, normal inspection Eye exam: Present: normal appearance, PERRL, EOMI. Absent: scleral icterus, conjunctival injection, periorbital swelling ENT exam: Present: normal exam, mucous membranes moist Neck exam: Present: normal inspection. Absent: tenderness, meningismus, lymphadenopathy Respiratory exam: Present: normal lung sounds bilaterally. Absent: respiratory distress, wheezes, rales, rhonchi, stridor Cardiovascular Exam: Present: regular rate, normal rhythm, normal heart sounds. Absent: systolic murmur, diastolic murmur, rubs, gallop, clicks GI/Abdominal exam: Present: soft, normal bowel sounds. Absent: distended, tenderness, guarding, rebound, rigid Extremities exam: Present: normal inspection, full ROM, normal capillary refill. Absent: tenderness, pedal edema, joint swelling, calf tenderness Back exam: Present: normal inspection Neurological exam: Present: alert, oriented X3, CN II-XII intact Psychiatric exam: Present: normal affect, normal mood Skin exam: Present: warm, dry, intact, normal color. Absent: rash Course Vital Signs 10/28/16 14:41 Temperature 98 F Pulse Rate 81 Respiratory 18 Rate Blood Pressure 135/89 O2 Sat by Pulse 97 Oximetry - Reevaluation(s) Reevaluation #1: 10/28/16 15:40 Patient has adequate pain control, again no neurological deficit. Patient discussed future also testing, informed that and she understands that she cannot have MRI or nerve block here in the emergency room today. Patient is okay with that we'll continue to follow up with her scheduled appointments Medical Decision Making - Medical Decision Making 46 female ER for evaluation of headache. Visionary migraine changes. No trauma. Symptoms improved with pain control. Patient will be discharged home Disposition Clinical Impression: Migraine, Occipital neuralgia of right side Disposition: HOME SELF-CARE Condition: Good Instructions: Migraine Headache (ED) Referrals: Ayush Mueller MD [Primary Care Provider] - 1-2 days
[2016-10-28 17:48] VITALS: BP 149/97; PULSE 75; TEMP 97.5
== END 2016-10-28 17:48 | disposition home or self-care (01) ==
LOC: EC 14:29
DX: G43.909 Migraine, unspecified, not intractable, without status migrainosus (principal); M54.81 Occipital neuralgia; E78.5 Hyperlipidemia, unspecified; E07.9 Disorder of thyroid, unspecified; F41.9 Anxiety disorder, unspecified; F31.9 Bipolar disorder, unspecified; G40.909 Epilepsy, unspecified, not intractable, without status epilepticus; F17.200 Nicotine dependence, unspecified, uncomplicated; Z79.899 Other long term (current) drug therapy; Z88.0 Allergy status to penicillin; Z88.1 Allergy status to other antibiotic agents; Z88.6 Allergy status to analgesic agent; Z88.8 Allergy status to other drugs, medicaments and biological substances; Z91.018 Allergy to other foods; Z91.040 Latex allergy status
CPT/HCPCS: 99283; 96372 ×2; J1170

== ENCOUNTER → 2016-11-08 | Outpatient (CLI) | payer OTHER ==
[2016-11-08 09:20] LABS: Non-African American GFR(MDRD) >60 (>60 ml/min/1.73 sqM)
--- NOTE | 2016-11-08 13:59 | MR ---
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 Unable to obtain intravenous access for contrast . Correlation to prior brain MRI 11/18/2015, CT brain 09/23/2016. There is no restricted diffusion. There is no hemorrhage or hydrocephalus. Brain signal is stable. Ce rebellopontine angles, corpus callosum, pituitary, cervical medullary junction are stable, there is a partially empty sella. The orbits show symmetric appearance. Paranasal sinuses are well aerated. Min imal inflammatory change present in mastoid air cells. There are normal vascular flow voids. IMPRESSION: Mild inflammatory change mastoid air cells bilaterally. Stable brain MRI.
== END | disposition home or self-care (01) ==
LOC: RADMRIMAIN 08:59
PROVIDERS: ATTEND Psychiatry & Neurology Neurology
DX: H05.119 Granuloma of unspecified orbit (principal); Z13.89 Encounter for screening for other disorder
CPT/HCPCS: 36415; 70551; 82565

== ENCOUNTER 2016-11-10 00:08 | Emergency (ER) | payer OTHER ==
[2016-11-10] MEDS ORDERED: ONDANSETRON 4 MG/2 ML VIAL IVP STA (00:28)
[2016-11-10] MEDS ORDERED: SODIUM CHLORIDE 0.9% 500 ML IV STA (00:28)
[2016-11-10] MEDS ORDERED: HYDROmorphone 1 MG/ML 1 ML SYRINGE IVP STA ×2 (00:29→01:36)
[2016-11-10] MEDS ORDERED: diphenhydrAMINE 50 MG/ML 1 ML VIAL IVP STA (00:29)
--- NOTE | 2016-11-10 00:55 | ED ---
Headache HPI - General Chief Complaint: Headache Stated Complaint: Migraine Time Seen by Provider: 11/10/16 00:16 Mode of arrival: ambulatory Limitations: no limitations - History of Present Illness Initial Comments: Briefly old female patient presents with a three-day history of migraine headache. Patient states that she does have a history of migraine headaches and that this headache is typical of her usual symptoms. Patient states that the headache has been constant for the last 3 days with this she does have photosensitivity, sound sensitivity, nausea, and has vomited several times struck the past 3 days. Patient states she does have some blurred vision in her right eye which is related to some old hemorrhages, this is normal for her. Patient denies any dizziness, weakness, neck pain, back pain, numbness, tingling, chest pain, shortness of breath, abdominal pain, constipation, diarrhea, hematuria, dysuria, urinary frequency or urinary urgency. Patient also did have one seizure earlier today. Patient does have a history of seizures and states that is not unusual for her to have a seizure occasionally. Patient states that she has taken Tylenol to help relieve the headache however it has not helped. Patient has been to see her neurologist and did have an MRI of the brain yesterday. - Related Data Home Medications Medication Instructions Recorded Confirmed Levothyroxine Sodium [Synthroid] 50 mcg PO DAILY 08/10/14 10/28/16 Lacosamide [Vimpat] 100 mg PO BID 11/24/15 10/28/16 Atorvastatin Calcium [Lipitor] 40 mg PO HS 04/07/16 10/28/16 LORazepam [Ativan] 0.5 mg PO BID PRN 08/07/16 10/28/16 Fluorometholone [Fml Forte] 1 drop RIGHT EYE QID 10/16/16 10/28/16 Zolpidem [Ambien] 10 mg PO HS 10/16/16 10/28/16 Butalb/APAP/Caff 50-325-40Mg 2 tab PO BID PRN 10/28/16 10/28/16 [Fioricet 50-325-40] Previous Rx's Medication Instructions Recorded amLODIPine [Norvasc] 5 mg PO DAILY tab 11/20/15 Phenytoin Sodium Extended 100 mg PO TID #21 capsule 09/01/16 [Dilantin] Allergies Allergy/AdvReac Type Severity Reaction Status Date / Time gabapentin [From Neurontin] Allergy Itching Verified 11/10/16 00:13 latex Allergy Anaphylaxis Verified 11/10/16 00:13 naproxen [From Naprosyn] Allergy Anaphylaxis Verified 11/10/16 00:13 Penicillins Allergy Anaphylaxis Verified 11/10/16 00:13 quetiapine fumarate Allergy Itching, Verified 11/10/16 00:13 [From Seroquel] leg cramps rofecoxib [From Vioxx] Allergy Itching, Verified 11/10/16 00:13 leg cramps terfenadine [From Seldane] Allergy Rash/Hives Verified 11/10/16 00:13 calcium carbonate [From DHEA] AdvReac Chest Pain Verified 11/10/16 00:13 calcium phosphate,dibasic AdvReac Chest Pain Verified 11/10/16 00:13 [From DHEA] clindamycin AdvReac muscle Verified 11/10/16 00:13 cramps dextromethorphan HBr AdvReac face/neck Verified 11/10/16 00:13 [From NyQuil] flushing diazepam [From Valium] AdvReac Nausea & Verified 11/10/16 00:13 Vomiting doxylamine [From NyQuil] AdvReac face "beet Verified 11/10/16 00:13 red", elevated temp. ibuprofen [From Motrin] AdvReac abdominal Verified 11/10/16 00:13 & muscle cramps indomethacin [From Indocin] AdvReac Abdominal Verified 11/10/16 00:13 Pain,N/V ketorolac tromethamine AdvReac "built up Verified 11/10/16 00:13 [From Toradol] in system", had to be given something to reverse metoclopramide HCl AdvReac muscle Verified 11/10/16 00:13 [From Reglan] cramps prasterone (DHEA) [From DHEA] AdvReac Chest Pain Verified 11/10/16 00:13 pseudoephedrine HCl AdvReac face "beet Verified 11/10/16 00:13 [From NyQuil] red", elevated temp. sumatriptan [From Imitrex] AdvReac migrane Verified 11/10/16 00:13 sumatriptan succinate AdvReac migrane Verified 08/06/17 00:13 [From Imitrex] topiramate [From Topamax] AdvReac "built up Verified 11/10/16 00:13 in system", had to be given something to reverse tramadol AdvReac Nausea & Verified 11/10/16 00:13 Vomiting trazodone AdvReac "built up Verified 11/10/16 00:13 in system", had to be given something to reverse zolpidem tartrate AdvReac "Became Verified 11/10/16 00:13 [From Ambien] violent with no memory" artificial sweetener AdvReac SEVERE Uncoded 10/28/16 14:43 MIGRAINE HEADACHE Review of Systems ROS Statement: Those systems with pertinent positive or pertinent negative responses have been documented in the HPI. ROS Other: All systems not noted in ROS Statement are negative. Past Medical History Past Medical History: Hyperlipidemia, Hypertension, Seizure Disorder, Thyroid Disorder Additional Past Medical History / Comment(s): Migraines. Viral MENINGITIS X2, 1993, 2000. CHRONIC BACK PAIN R/T FALL IN 1998. History of Any Multi-Drug Resistant Organisms: None Reported Past Surgical History: Appendectomy, Section, Cholecystectomy, Hernia Repair, Hysterectomy, Orthopedic Surgery, Tonsillectomy, Tubal Ligation Additional Past Surgical History / Comment(s): Hiatal Hernia, UMB HERNIA Repair. LT ROTATOR REPAIR. TOSHA KNEE SCOPES. Past Anesthesia/Blood Transfusion Reactions: No Reported Reaction Additional Past Anesthesia/Blood Transfusion Reaction / Comment(s): CLAUSTROPHOBIC Past Psychological History: Anxiety, Bipolar, Panic Disorder Smoking Status: Current every day smoker Past Alcohol Use History: Rare Past Drug Use History: None Reported - Past Family History Mother Family Medical History: Cancer, Dementia, Diabetes Mellitus, GERD/Reflux, Hyperlipidemia, Hypertension, Thyroid Disorder Additional Family Medical History / Comment(s): quad cabg, cardiac stents, toes amp. Father History Unknown: Yes Family Medical History: No Reported History General Exam Limitations: no limitations General appearance: alert, in no apparent distress Head exam: Present: atraumatic, normocephalic, normal inspection Eye exam: Present: normal appearance, PERRL, EOMI. Absent: scleral icterus, conjunctival injection, periorbital swelling ENT exam: Present: normal exam, normal oropharynx, mucous membranes moist, TM's normal bilaterally Neck exam: Present: normal inspection. Absent: tenderness, meningismus, lymphadenopathy Respiratory exam: Present: normal lung sounds bilaterally. Absent: respiratory distress, wheezes, rales, rhonchi, stridor Cardiovascular Exam: Present: regular rate, normal rhythm, normal heart sounds. Absent: systolic murmur, diastolic murmur, rubs, gallop, clicks GI/Abdominal exam: Present: soft, normal bowel sounds. Absent: distended, tenderness, guarding, rebound, rigid Extremities exam: Present: normal inspection, full ROM, normal capillary refill. Absent: tenderness, pedal edema, joint swelling, calf tenderness Back exam: Present: normal inspection Neurological exam: Present: alert, oriented X3, CN II-XII intact Psychiatric exam: Present: normal affect, normal mood Skin exam: Present: warm, dry, intact, normal color. Absent: rash Course Vital Signs 11/10/16 00:11 Temperature 98 F Pulse Rate 86 Respiratory 18 Rate Blood Pressure 143/93 O2 Sat by Pulse 100 Oximetry Medical Decision Making - Medical Decision Making Differential Junot patient presents to emergency department today for evaluation of migraine headache. Patient's symptoms are consistent with her previous history of migraines. Patient does feel better after receiving IV fluids as well as IV pain medications. Patient states that she feels at this time she can go home. Patient does have an appointment with her neurologist which she states that she will keep. Patient be discharged home with instructions to follow up with her primary care physician for recheck in 1-2 days. Instructed to return immediately for any new, worsening, or concerning symptoms. - Radiology Data Radiology results: report reviewed MRI reviewed and did show no acute intracranial abnormalities. Did show some mastoid air cell inflammation. Disposition Clinical Impression: Migraine headache Disposition: HOME SELF-CARE Condition: Good Instructions: Migraine Headache (ED) Additional Instructions: Increase fluids. Follow-up with neurologist as you have planned. Follow up with primary care physician in one to 2 days for recheck. Return for any new, worsening, or concerning symptoms. Referrals: Ayush Mueller MD [Primary Care Provider] - 1-2 days Time of Disposition: 01:27
[2016-11-10 01:58] VITALS: BP 136/90; PULSE 75; RESP 16; TEMP 98
== END 2016-11-10 01:58 | disposition home or self-care (01) ==
LOC: EC 00:08
DX: G43.909 Migraine, unspecified, not intractable, without status migrainosus (principal); E07.9 Disorder of thyroid, unspecified; E78.5 Hyperlipidemia, unspecified; G40.909 Epilepsy, unspecified, not intractable, without status epilepticus; F17.200 Nicotine dependence, unspecified, uncomplicated; Z88.0 Allergy status to penicillin; Z91.040 Latex allergy status; Z88.6 Allergy status to analgesic agent; Z88.8 Allergy status to other drugs, medicaments and biological substances; Z91.02 Food additives allergy status; Z79.899 Other long term (current) drug therapy
CPT/HCPCS: 99283; 96374; 96375 ×2; 96376; J1200; J2405; J1170

== ENCOUNTER → 2016-11-12 | Outpatient (CLI) | payer OTHER ==
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
== END ==
LOC: SLEEP 16:51
PROVIDERS: ATTEND Internal Medicine Critical Care Medicine
DX: G47.00 Insomnia, unspecified (principal); E03.9 Hypothyroidism, unspecified; I10 Essential (primary) hypertension; F43.10 Post-traumatic stress disorder, unspecified; F31.9 Bipolar disorder, unspecified; Z79.899 Other long term (current) drug therapy
CPT/HCPCS: 99211

== ENCOUNTER 2016-11-16 00:25 | Emergency (ER) | payer OTHER ==
[2016-11-16] MEDS ORDERED: KETOROLAC 30 MG/ML 1 ML VIAL IVP STA (01:45)
[2016-11-16] MEDS ORDERED: SODIUM CHLORIDE 0.9% 1,000 ML IV STA (01:45)
[2016-11-16] MEDS ORDERED: ORPHENADRINE 30 MG/ML 2 ML VIAL IVP STA (01:51)
[2016-11-16] MEDS ORDERED: ONDANSETRON 4 MG ODT STARTER PACK 2 TAB BTL PO STA (01:51)
[2016-11-16] MEDS ORDERED: HYDROmorphone 1 MG/ML 1 ML SYRINGE IVP STA (01:51)
[2016-11-16] MEDS ORDERED: MORPHINE SULFATE 4 MG/ML SYRINGE IVP STA (03:02)
--- NOTE | 2016-11-16 03:03 | ED ---
Headache HPI - General Chief Complaint: Headache Stated Complaint: headache Time Seen by Provider: 11/16/16 01:10 Source: RN notes reviewed, old records reviewed Mode of arrival: ambulatory Limitations: no limitations - History of Present Illness Initial Comments: This is a 46year old female with CC of migraine headche for the past day and a half, patient states that she has migraines frequently, and this feels similiar to all of her previous headaches. She reports she feels nauseated. Denies any vision changes or neck pain. She states that she took her at home medications, but is allergic to most medications used to treat headaches. She denies any vomiting. Denies any falls or head trauma. She states headche is worse with loud noises and bright lights. - Related Data Home Medications Medication Instructions Recorded Confirmed Levothyroxine Sodium [Synthroid] 50 mcg PO DAILY 08/10/14 11/16/16 Lacosamide [Vimpat] 100 mg PO BID 11/24/15 11/16/16 Atorvastatin Calcium [Lipitor] 40 mg PO HS 04/07/16 11/16/16 LORazepam [Ativan] 0.5 mg PO BID PRN 08/07/16 11/16/16 Fluorometholone [Fml Forte] 1 drop RIGHT EYE QID 10/16/16 11/16/16 Zolpidem [Ambien] 10 mg PO HS 10/16/16 11/16/16 Butalb/APAP/Caff 50-325-40Mg 2 tab PO BID PRN 10/28/16 11/16/16 [Fioricet 50-325-40] Previous Rx's Medication Instructions Recorded amLODIPine [Norvasc] 5 mg PO DAILY tab 11/20/15 Phenytoin Sodium Extended 100 mg PO TID #21 capsule 09/01/16 [Dilantin] Allergies Allergy/AdvReac Type Severity Reaction Status Date / Time gabapentin [From Neurontin] Allergy Itching Verified 11/10/16 00:13 latex Allergy Anaphylaxis Verified 11/10/16 00:13 naproxen [From Naprosyn] Allergy Anaphylaxis Verified 11/10/16 00:13 Penicillins Allergy Anaphylaxis Verified 11/10/16 00:13 quetiapine fumarate Allergy Itching, Verified 11/10/16 00:13 [From Seroquel] leg cramps rofecoxib [From Vioxx] Allergy Itching, Verified 11/10/16 00:13 leg cramps terfenadine [From Seldane] Allergy Rash/Hives Verified 11/10/16 00:13 calcium carbonate [From DHEA] AdvReac Chest Pain Verified 11/10/16 00:13 calcium phosphate,dibasic AdvReac Chest Pain Verified 11/10/16 00:13 [From DHEA] clindamycin AdvReac muscle Verified 11/10/16 00:13 cramps dextromethorphan HBr AdvReac face/neck Verified 11/10/16 00:13 [From NyQuil] flushing diazepam [From Valium] AdvReac Nausea & Verified 11/10/16 00:13 Vomiting doxylamine [From NyQuil] AdvReac face "beet Verified 11/10/16 00:13 red", elevated temp. ibuprofen [From Motrin] AdvReac abdominal Verified 11/10/16 00:13 & muscle cramps indomethacin [From Indocin] AdvReac Abdominal Verified 11/10/16 00:13 Pain,N/V ketorolac tromethamine AdvReac "built up Verified 11/10/16 00:13 [From Toradol] in system", had to be given something to reverse metoclopramide HCl AdvReac muscle Verified 11/10/16 00:13 [From Reglan] cramps prasterone (DHEA) [From DHEA] AdvReac Chest Pain Verified 11/10/16 00:13 pseudoephedrine HCl AdvReac face "beet Verified 11/10/16 00:13 [From NyQuil] red", elevated temp. sumatriptan [From Imitrex] AdvReac migrane Verified 11/10/16 00:13 sumatriptan succinate AdvReac migrane Verified 11/10/16 00:13 [From Imitrex] topiramate [From Topamax] AdvReac "built up Verified 11/10/16 00:13 in system", had to be given something to reverse tramadol AdvReac Nausea & Verified 11/10/16 00:13 Vomiting trazodone AdvReac "built up Verified 11/10/16 00:13 in system", had to be given something to reverse zolpidem tartrate AdvReac "Became Verified 11/10/16 00:13 [From Ambien] violent with no memory" artificial sweetener AdvReac SEVERE Uncoded 10/28/16 14:43 MIGRAINE HEADACHE Review of Systems ROS Statement: Those systems with pertinent positive or pertinent negative responses have been documented in the HPI. ROS Other: All systems not noted in ROS Statement are negative. Past Medical History Past Medical History: Hyperlipidemia, Hypertension, Seizure Disorder, Thyroid Disorder Additional Past Medical History / Comment(s): Migraines. Viral MENINGITIS X2, 1993, 2000. CHRONIC BACK PAIN R/T FALL IN 1998. History of Any Multi-Drug Resistant Organisms: None Reported Past Surgical History: Appendectomy, Section, Cholecystectomy, Hernia Repair, Hysterectomy, Orthopedic Surgery, Tonsillectomy, Tubal Ligation Additional Past Surgical History / Comment(s): Hiatal Hernia, UMB HERNIA Repair. LT ROTATOR REPAIR. TOSHA KNEE SCOPES. Past Anesthesia/Blood Transfusion Reactions: No Reported Reaction Additional Past Anesthesia/Blood Transfusion Reaction / Comment(s): CLAUSTROPHOBIC Past Psychological History: Anxiety, Bipolar, Panic Disorder Smoking Status: Current every day smoker Past Alcohol Use History: Rare Past Drug Use History: None Reported - Past Family History Mother Family Medical History: Cancer, Dementia, Diabetes Mellitus, GERD/Reflux, Hyperlipidemia, Hypertension, Thyroid Disorder Additional Family Medical History / Comment(s): quad cabg, cardiac stents, toes amp. Father History Unknown: Yes Family Medical History: No Reported History General Exam - General Exam Comments Initial Comments: This is a 46 year old female, no acute distress. Limitations: no limitations General appearance: alert, in no apparent distress Head exam: Present: atraumatic, normocephalic, normal inspection Eye exam: Present: normal appearance, PERRL, EOMI. Absent: scleral icterus, conjunctival injection, periorbital swelling ENT exam: Present: normal exam, mucous membranes moist Neck exam: Present: normal inspection. Absent: tenderness, meningismus, lymphadenopathy Respiratory exam: Present: normal lung sounds bilaterally. Absent: respiratory distress, wheezes, rales, rhonchi, stridor Cardiovascular Exam: Present: regular rate, normal rhythm, normal heart sounds. Absent: systolic murmur, diastolic murmur, rubs, gallop, clicks GI/Abdominal exam: Present: soft, normal bowel sounds. Absent: distended, tenderness, guarding, rebound, rigid Extremities exam: Present: normal inspection, full ROM, normal capillary refill. Absent: tenderness, pedal edema, joint swelling, calf tenderness Back exam: Present: normal inspection Neurological exam: Present: alert, oriented X3, CN II-XII intact Expanded Patient oriented to: Present: person, place, time Speech: Present: fluid speech Cranial nerves: EOM's Intact: Normal, Gag Reflex: Normal, Tongue Deviation: Normal, Facial Sensation: Normal Cerebellar function: Finger to Nose: Normal Upper motor neuron: Pronator Drift: Normal Sensory exam: Upper Extremity Light Touch: Normal, Upper Extremity Temperature: Normal Motor strength exam: RUE: 5, LUE: 5, RLE: 5, LLE: 5 Eye Response: (4) open spontaneously Motor Response: (6) obeys commands Verbal Response: (5) oriented [place] Total: 15 Psychiatric exam: Present: normal affect, normal mood Skin exam: Present: warm, dry, intact, normal color. Absent: rash Course Vital Signs 11/16/16 11/16/16 11/16/16 00:28 01:10 02:10 Temperature 98.7 F 98.1 F Pulse Rate 93 103 H 82 Respiratory 18 18 18 Rate Blood Pressure 174/101 159/111 150/96 O2 Sat by Pulse 99 99 99 Oximetry 11/16/16 11/16/16 03:10 03:32 Temperature 97.3 F L Pulse Rate 75 77 Respiratory 18 16 Rate Blood Pressure 133/80 137/84 O2 Sat by Pulse 99 98 Oximetry Medical Decision Making - Medical Decision Making This is a 46year old female with CC of migraine headche for the past day and a half, patient states that she has migraines frequently, and this feels similiar to all of her previous headaches. She reports she feels nauseated. Denies any vision changes or neck pain. She states that she took her at home medications, but is allergic to most medications used to treat headaches. Patient was given IV fluids, norflex and pain medication. Patient is allergic to usual migraine cocktail medications such as benadryl, reglan, and toradol. Patient reports that only diliadid cures her headache. Patient has no focal neurological deficits, and discussed that imaging such as CT is not indicated at this time. Patient agrees. She does have some follow up appointments with a neurologist for her frequent migraines. She was reevaluated and was feeling better. PAtient will be discharged at thsi time and advisd to follow up with PCP and neurologist. REturn parameters discussed. Disposition Clinical Impression: Migraine Disposition: HOME SELF-CARE Condition: Good Instructions: Acute Headache (ED) Additional Instructions: Follow-up with neurologist and primary care provider. Return to the emergency department if any alarming signs or symptoms occur. Referrals: Ayush Mueller MD [Primary Care Provider] - 1-2 days Time of Disposition: 03:02
[2016-11-16 03:33] VITALS: BP 137/84; PULSE 77; RESP 16; TEMP 97.3
== END 2016-11-16 03:33 | disposition home or self-care (01) ==
LOC: EC 00:25
DX: G43.909 Migraine, unspecified, not intractable, without status migrainosus (principal); R40.2142 Coma scale, eyes open, spontaneous, at arrival to emergency department; R40.2252 Coma scale, best verbal response, oriented, at arrival to emergency department; R40.2362 Coma scale, best motor response, obeys commands, at arrival to emergency department; E78.5 Hyperlipidemia, unspecified; E07.9 Disorder of thyroid, unspecified; G40.909 Epilepsy, unspecified, not intractable, without status epilepticus; F17.200 Nicotine dependence, unspecified, uncomplicated; Z79.899 Other long term (current) drug therapy; Z88.0 Allergy status to penicillin; Z88.6 Allergy status to analgesic agent; Z88.8 Allergy status to other drugs, medicaments and biological substances; Z91.018 Allergy to other foods; Z91.040 Latex allergy status
CPT/HCPCS: 99284; 96374; 96375 ×2; 96361; J2270; J2360; J1170; S0119

== ENCOUNTER 2016-11-20 00:40 | Emergency (ER) | payer OTHER ==
[2016-11-20] MEDS ORDERED: ONDANSETRON 4 MG/2 ML VIAL IVP STA (00:52)
[2016-11-20] MEDS ORDERED: SODIUM CHLORIDE 0.9% 500 ML IV STA (00:52)
[2016-11-20] MEDS ORDERED: SODIUM CHLORIDE 0.9% 1,000 ML IV STA (00:52)
[2016-11-20] MEDS ORDERED: diphenhydrAMINE 50 MG/ML 1 ML VIAL IVP STA (00:59)
--- NOTE | 2016-11-20 01:06 | ED ---
Nausea/Vomiting/Diarrhea HPI - General Chief complaint: Nausea/Vomiting/Diarrhea Stated complaint: vomiting Time Seen by Provider: 11/20/16 00:52 Source: patient, RN notes reviewed Mode of arrival: ambulatory Limitations: no limitations - History of Present Illness Initial comments: 46-year-old female presents emergency Department with chief complaint of nausea vomiting after starting Depakote. Patient states she took one dose Friday night. Patient states she's been up all day vomiting. Patient states that she started Depakote for headache/migraines prescribed by her neurologist Dr. Rdz. Patient states that she is taking Depakote in the past and had same reaction with a one to try her again on this. Patient states she denies a migraine headache because of this. Patient denies any fever or chills she states it's her typical migraine headache. Patient is well-known emergency department and is currently requesting narcotic pain medication. - Related Data Home Medications Medication Instructions Recorded Confirmed Levothyroxine Sodium [Synthroid] 50 mcg PO DAILY 08/10/14 11/16/16 Lacosamide [Vimpat] 100 mg PO BID 11/24/15 11/16/16 Atorvastatin Calcium [Lipitor] 40 mg PO HS 04/07/16 11/16/16 LORazepam [Ativan] 0.5 mg PO BID PRN 08/07/16 11/16/16 Fluorometholone [Fml Forte] 1 drop RIGHT EYE QID 10/16/16 11/16/16 Zolpidem [Ambien] 10 mg PO HS 10/16/16 11/16/16 Butalb/APAP/Caff 50-325-40Mg 2 tab PO BID PRN 10/28/16 11/16/16 [Fioricet 50-325-40] Previous Rx's Medication Instructions Recorded amLODIPine [Norvasc] 5 mg PO DAILY tab 11/20/15 Phenytoin Sodium Extended 100 mg PO TID #21 capsule 09/01/16 [Dilantin] Allergies Allergy/AdvReac Type Severity Reaction Status Date / Time gabapentin [From Neurontin] Allergy Itching Verified 11/20/16 00:46 latex Allergy Anaphylaxis Verified 11/20/16 00:46 naproxen [From Naprosyn] Allergy Anaphylaxis Verified 11/20/16 00:46 Penicillins Allergy Anaphylaxis Verified 11/20/16 00:46 quetiapine fumarate Allergy Itching, Verified 11/20/16 00:46 [From Seroquel] leg cramps rofecoxib [From Vioxx] Allergy Itching, Verified 11/20/16 00:46 leg cramps terfenadine [From Seldane] Allergy Rash/Hives Verified 11/20/16 00:46 calcium carbonate [From DHEA] AdvReac Chest Pain Verified 11/20/16 00:46 calcium phosphate,dibasic AdvReac Chest Pain Verified 11/20/16 00:46 [From DHEA] clindamycin AdvReac muscle Verified 11/20/16 00:46 cramps dextromethorphan HBr AdvReac face/neck Verified 11/20/16 00:46 [From NyQuil] flushing diazepam [From Valium] AdvReac Nausea & Verified 11/20/16 00:46 Vomiting doxylamine [From NyQuil] AdvReac face "beet Verified 11/20/16 00:46 red", elevated temp. ibuprofen [From Motrin] AdvReac abdominal Verified 11/20/16 00:46 & muscle cramps indomethacin [From Indocin] AdvReac Abdominal Verified 11/20/16 00:46 Pain,N/V ketorolac tromethamine AdvReac "built up Verified 11/20/16 00:46 [From Toradol] in system", had to be given something to reverse metoclopramide HCl AdvReac muscle Verified 11/20/16 00:46 [From Reglan] cramps prasterone (DHEA) [From DHEA] AdvReac Chest Pain Verified 11/20/16 00:46 pseudoephedrine HCl AdvReac face "beet Verified 11/20/16 00:46 [From NyQuil] red", elevated temp. sumatriptan [From Imitrex] AdvReac migrane Verified 11/20/16 00:46 sumatriptan succinate AdvReac migrane Verified 11/20/16 00:46 [From Imitrex] topiramate [From Topamax] AdvReac "built up Verified 11/20/16 00:46 in system", had to be given something to reverse tramadol AdvReac Nausea & Verified 11/20/16 00:46 Vomiting trazodone AdvReac "built up Verified 11/20/16 00:46 in system", had to be given something to reverse zolpidem tartrate AdvReac "Became Verified 11/20/16 00:46 [From Ambien] violent with no memory" artificial sweetener AdvReac SEVERE Uncoded 11/20/16 00:46 MIGRAINE HEADACHE Review of Systems ROS Statement: Those systems with pertinent positive or pertinent negative responses have been documented in the HPI. ROS Other: All systems not noted in ROS Statement are negative. Past Medical History Past Medical History: Hyperlipidemia, Hypertension, Seizure Disorder, Thyroid Disorder Additional Past Medical History / Comment(s): Migraines. Viral MENINGITIS X2, 1993, 2000. CHRONIC BACK PAIN R/T FALL IN 1998. History of Any Multi-Drug Resistant Organisms: None Reported Past Surgical History: Appendectomy, Section, Cholecystectomy, Hernia Repair, Hysterectomy, Orthopedic Surgery, Tonsillectomy, Tubal Ligation Additional Past Surgical History / Comment(s): Hiatal Hernia, UMB HERNIA Repair. LT ROTATOR REPAIR. TOSHA KNEE SCOPES. Past Anesthesia/Blood Transfusion Reactions: No Reported Reaction Additional Past Anesthesia/Blood Transfusion Reaction / Comment(s): CLAUSTROPHOBIC Past Psychological History: Anxiety, Bipolar, Panic Disorder Smoking Status: Current every day smoker Past Alcohol Use History: Rare Past Drug Use History: None Reported - Past Family History Mother Family Medical History: Cancer, Dementia, Diabetes Mellitus, GERD/Reflux, Hyperlipidemia, Hypertension, Thyroid Disorder Additional Family Medical History / Comment(s): quad cabg, cardiac stents, toes amp. Father History Unknown: Yes Family Medical History: No Reported History General Exam Limitations: no limitations General appearance: alert, in no apparent distress Head exam: Present: atraumatic, normocephalic, normal inspection Eye exam: Present: normal appearance, PERRL, EOMI. Absent: scleral icterus, conjunctival injection, periorbital swelling ENT exam: Present: normal exam, normal oropharynx, mucous membranes moist Neck exam: Present: normal inspection, full ROM. Absent: tenderness, meningismus, lymphadenopathy Respiratory exam: Present: normal lung sounds bilaterally. Absent: respiratory distress, wheezes, rales, rhonchi, stridor Cardiovascular Exam: Present: regular rate, normal rhythm, normal heart sounds. Absent: systolic murmur, diastolic murmur, rubs, gallop, clicks Neurological exam: Present: alert, oriented X3, CN II-XII intact Skin exam: Present: warm, dry, intact, normal color. Absent: rash Course Vital Signs 11/20/16 00:43 Temperature 98.9 F Pulse Rate 103 H Respiratory 24 Rate Blood Pressure 148/93 O2 Sat by Pulse 100 Oximetry Medical Decision Making - Medical Decision Making 46-year-old female presented for nausea vomiting headache after starting Depakote. Patient was several times for IV access those unsuccessful. Patient is requesting IM injections at this time. Patient will be given IM injections of discharge. Patient agrees to plan return parameters were discussed. Disposition Clinical Impression: Migraine, Medication reaction, Nausea & vomiting Disposition: HOME SELF-CARE Condition: Stable Instructions: Acute Nausea and Vomiting (ED) Additional Instructions: Please return to the Emergency Department if symptoms worsen or any other concerns. Referrals: Ayush Mueller MD [Primary Care Provider] - 1-2 days Time of Disposition: 01:50
[2016-11-20] MEDS ORDERED: ONDANSETRON 4 MG/2 ML VIAL IM STA (01:47)
[2016-11-20] MEDS ORDERED: diphenhydrAMINE 50 MG/ML 1 ML VIAL IM STA (01:47)
[2016-11-20] MEDS ORDERED: HYDROmorphone 1 MG/ML 1 ML SYRINGE IM STA (01:48)
[2016-11-20 02:16] VITALS: BP 122/90; PULSE 77; RESP 16; TEMP 98.1
== END 2016-11-20 02:16 | disposition home or self-care (01) ==
LOC: EC 00:40
DX: G43.909 Migraine, unspecified, not intractable, without status migrainosus (principal); R11.2 Nausea with vomiting, unspecified; R19.7 Diarrhea, unspecified; T50.995A Adverse effect of other drugs, medicaments and biological substances, initial encounter; E78.5 Hyperlipidemia, unspecified; E07.9 Disorder of thyroid, unspecified; G40.909 Epilepsy, unspecified, not intractable, without status epilepticus; F31.9 Bipolar disorder, unspecified; F41.0 Panic disorder [episodic paroxysmal anxiety]; F17.200 Nicotine dependence, unspecified, uncomplicated; Z79.899 Other long term (current) drug therapy; Z91.040 Latex allergy status; Z88.0 Allergy status to penicillin; Z88.6 Allergy status to analgesic agent; Z88.1 Allergy status to other antibiotic agents; Z88.8 Allergy status to other drugs, medicaments and biological substances; Z91.02 Food additives allergy status
CPT/HCPCS: 99284; 96372 ×3; J1200; J2405; J1170

== ENCOUNTER → 2016-11-26 | Outpatient (CLI) | payer OTHER ==
[2016-11-26 11:46] VITALS: BP 135/92; PULSE 98; RESP 18; TEMP 98.4
--- NOTE | 2016-11-26 12:55 | P.CONS ---
History of Present Illness - Reason for Consult Consult date: 11/26/16 - History of Present Illness this is follow-up visit for this 46 years old female with a history of severe headache, was diagnosed with occipital neuralgia and we did occipital nerve block months ago patient gets excellent pain relief, and she was seen by a neurologist Dr. Rdz and he recommended repeat occipital nerve block and also she was referred to have lumbar puncture to rule out pseudotumor cerebri , she denies any focal neurological deficit, is scheduled to see a neuro- talend etl developer December 16, patient denies any nausea or vomiting , Past Medical History Past Medical History: Hyperlipidemia, Hypertension, Seizure Disorder, Thyroid Disorder Additional Past Medical History / Comment(s): Migraines. Viral MENINGITIS X2, 1993, 2000. CHRONIC BACK PAIN R/T FALL IN 1998. History of Any Multi-Drug Resistant Organisms: None Reported Past Surgical History: Appendectomy, Section, Cholecystectomy, Hernia Repair, Hysterectomy, Orthopedic Surgery, Tonsillectomy, Tubal Ligation Additional Past Surgical History / Comment(s): Hiatal Hernia, UMB HERNIA Repair. LT ROTATOR REPAIR. TOSHA KNEE SCOPES. Past Anesthesia/Blood Transfusion Reactions: No Reported Reaction Additional Past Anesthesia/Blood Transfusion Reaction / Comm: CLAUSTROPHOBIC Smoking Status: Current every day smoker - Past Family History Mother Family Medical History: Cancer, Dementia, Diabetes Mellitus, GERD/Reflux, Hyperlipidemia, Hypertension, Thyroid Disorder Additional Family Medical History / Comment(s): quad cabg, cardiac stents, toes amp. Father History Unknown: Yes Family Medical History: No Reported History Medications and Allergies Home Medications Medication Instructions Recorded Confirmed Type Levothyroxine Sodium [Synthroid] 50 mcg PO DAILY 08/10/14 11/26/16 History LORazepam [Ativan] 0.5 mg PO BID PRN 08/07/16 11/26/16 History Allergies Allergy/AdvReac Type Severity Reaction Status Date / Time gabapentin [From Neurontin] Allergy Itching Verified 11/26/16 11:15 latex Allergy Anaphylaxis Verified 11/26/16 11:15 naproxen [From Naprosyn] Allergy Anaphylaxis Verified 11/26/16 11:15 Penicillins Allergy Anaphylaxis Verified 11/26/16 11:15 quetiapine fumarate Allergy Itching, Verified 11/26/16 11:15 [From Seroquel] leg cramps rofecoxib [From Vioxx] Allergy Itching, Verified 11/26/16 11:15 leg cramps terfenadine [From Seldane] Allergy Rash/Hives Verified 11/26/16 11:15 calcium carbonate [From DHEA] AdvReac Chest Pain Verified 11/26/16 11:15 calcium phosphate,dibasic AdvReac Chest Pain Verified 11/26/16 11:15 [From DHEA] clindamycin AdvReac muscle Verified 11/26/16 11:15 cramps dextromethorphan HBr AdvReac face/neck Verified 11/26/16 11:15 [From NyQuil] flushing diazepam [From Valium] AdvReac Nausea & Verified 11/26/16 11:15 Vomiting doxylamine [From NyQuil] AdvReac face "beet Verified 11/26/16 11:15 red", elevated temp. ibuprofen [From Motrin] AdvReac abdominal Verified 11/26/16 11:15 & muscle cramps indomethacin [From Indocin] AdvReac Abdominal Verified 11/26/16 11:15 Pain,N/V ketorolac tromethamine AdvReac "built up Verified 11/26/16 11:15 [From Toradol] in system", had to be given something to reverse metoclopramide HCl AdvReac muscle Verified 11/26/16 11:15 [From Reglan] cramps prasterone (DHEA) [From DHEA] AdvReac Chest Pain Verified 11/26/16 11:15 pseudoephedrine HCl AdvReac face "beet Verified 11/26/16 11:15 [From NyQuil] red", elevated temp. sumatriptan [From Imitrex] AdvReac migrane Verified 11/26/16 11:15 sumatriptan succinate AdvReac migrane Verified 11/26/16 11:15 [From Imitrex] topiramate [From Topamax] AdvReac "built up Verified 11/26/16 11:15 in system", had to be given something to reverse tramadol AdvReac Nausea & Verified 11/26/16 11:15 Vomiting trazodone AdvReac "built up Verified 11/26/16 11:15 in system", had to be given something to reverse zolpidem tartrate AdvReac "Became Verified 11/26/16 11:15 [From Ambien] violent with no memory" artificial sweetener AdvReac SEVERE Uncoded 11/26/16 11:15 MIGRAINE HEADACHE Physical Exam Vitals: Vital Signs Temp Pulse Resp BP Pulse Ox 11/26/16 11:16 98.4 F 98 18 135/92 98 Intake and Output 11/25/16 11/26/16 11/26/16 22:59 06:59 14:59 Other: Weight 77.111 kg Patient Weight 11/27/16 06:59 Weight 77.111 kg Physical Examinations : 1-Constitutiona : Cooperative , not in acute distress . 2-HEENT : nech ; supple , no Lymphadenopathy , normal thyroid size . eyes : no ptosis , no icterus, no photophobia . ENT : normal of hearing , normal oropharynx , no Thrush . 3- Respiratory : Chest clear to auscultations Bilaterally , no wheezing , no Rhonchi . 4- Cardiovascular : regular rate and rhythem , S1 , S2 , no S3 , no S4. 5- Gastrointestinal : abdomen soft no tenderness , bowel sounds positive all four quadrents , no organomegally . 6- Genitourinary : Defferred . 7- neurologic : Cranial nerve II to XII intact , no focal neurological deffecit . 8-psychatric : alert , oriented X 3 , appropriate affect , intact judgment and insight . 9-Lymphatic : no Lymphadenopathy . 10- musculoskeltal : cervical spine = motor stregnth in the deltoid and biceps, motor stregnth biceps and the wrist extensors (C6) . motor stregnth in the triceps muscle . deep tendon reflexes normal at the biceps , l normal at Brachioradialis normal at the triceps positive cervical facet loading test . Positive tenderness over the occipital nerve right side more than the left side , Lumber spine = normal moter stegnth lower extremities ,thigh and legs .55 Assessment and Plan Plan: Assessment and plan= sever, headache , rule out pseudotumor cerebre , he was referred to have lumbar puncture with removal of large volume CSF, CSF assure more than 20 Also patient had bilateral occipital neuralgia she could benefit from an bilateral occipital nerve block, C3 risks and benefits and alternatives discussed with the patient and she agreed with proceeding Time with Patient: Less than 30
== END ==
LOC: PNWHC3 11:09
PROVIDERS: ATTEND Specialist
DX: M54.81 Occipital neuralgia (principal); R51 Headache; E07.9 Disorder of thyroid, unspecified; E78.5 Hyperlipidemia, unspecified; I10 Essential (primary) hypertension; F17.200 Nicotine dependence, unspecified, uncomplicated; Z79.899 Other long term (current) drug therapy; Z88.8 Allergy status to other drugs, medicaments and biological substances; Z91.040 Latex allergy status; Z88.0 Allergy status to penicillin; Z88.6 Allergy status to analgesic agent
CPT/HCPCS: 99211

== ENCOUNTER 2016-12-04 07:33 | Day surgery (SDC) | payer OTHER ==
[2016-12-02 11:13] VITALS: BMI 30.1
[~2016-12-04 07:33] MED LIST: LACTATED RINGERS 1,000 ML IV SCH
[2016-12-04 07:57] VITALS: TEMP 98
--- NOTE | 2016-12-04 09:20 | P.PCN ---
Date of Procedure: 12/04/16 Preoperative Diagnosis: Pseudotumor Cerebrei Headache Postoperative Diagnosis: Same as above Procedure(s) Performed: Lumbar puncture and the left lateral decubitus position Implants: Anesthesia: other (Moderate sedation with IV fentanyl and Versed) Surgeon: Chrissy Tracy Pathology: none sent Condition: stable Disposition: PACU Indications for Procedure: Operative Findings: Description of Procedure: The patient was seen in the preop holding area consent was obtained. The patient has orders from Dr. Patel for lumbar puncture and measurement of opening pressure to rule out pseudotumor cerebri. Patient was brought into the procedure room and placed in the left lateral decubitus position skin was prepped with ChloraPrep and draped in a sterile manner. Lidocaine 1% was used to numb the skin up at the target point that the L4 5 level. Used 22-gauge 3-1/2 inch Quincke spinal needle for this procedure. There was positive CSF, no paresthesia in the lower extremities was noticed by the patient. The opening pressure was 10 cm of CSF. I then obtained 4 tubes of CSF samples for lab work ,1 mL in each tube. Patient tolerated procedure well.
[2016-12-04] MEDS ORDERED: fentaNYL (PF) 50 MCG/ML 2 ML AMP IVP ONE ×2 (10:00→10:20)
[2016-12-04 10:31] VITALS: RESP 18
[2016-12-04 10:48] VITALS: BP 126/86; PULSE 72
[2016-12-04] MEDS ORDERED: IV FLUID CONTINUATION 1,000 ML IV ONE (10:59)
== END 2016-12-04 11:03 | disposition home or self-care (01) ==
LOC: ORPAIN 07:33
PROVIDERS: ATTEND Anesthesiology
DX: R51 Headache (principal); G93.2 Benign intracranial hypertension; M79.605 Pain in left leg; E78.5 Hyperlipidemia, unspecified; I10 Essential (primary) hypertension; E07.9 Disorder of thyroid, unspecified; Z79.899 Other long term (current) drug therapy; F17.200 Nicotine dependence, unspecified, uncomplicated; Z88.6 Allergy status to analgesic agent; Z88.1 Allergy status to other antibiotic agents; Z88.0 Allergy status to penicillin; Z88.8 Allergy status to other drugs, medicaments and biological substances
CPT/HCPCS: 62270; 99152; 99153

== ENCOUNTER 2016-12-05 19:39 | Emergency (ER) | payer OTHER ==
[2016-12-05] MEDS ORDERED: ONDANSETRON 4 MG/2 ML VIAL IVP STA (19:59)
[2016-12-05] MEDS ORDERED: HYDROmorphone 1 MG/ML 1 ML SYRINGE IVP STA (20:00)
[2016-12-05] MEDS ORDERED: SODIUM CHLORIDE 0.9% 500 ML IV ONE (20:03)
--- NOTE | 2016-12-05 20:04 | ED ---
Headache HPI - General Chief Complaint: Headache Stated Complaint: Migraine Time Seen by Provider: 12/05/16 19:55 Source: patient, RN notes reviewed Mode of arrival: wheelchair Limitations: no limitations - History of Present Illness Initial Comments: This a 46-year-old female presents emergency Department with chief complaint of headache. Patient states she had an LP yesterday performed here in the hospital. Patient states she developed a headache as soon as she left. Patient states that she called on-call anesthesia who told her to come emergency department that she would need a blood patch. Patient states that this headache is different than her usual. Patient states she feels it in the hospital region. Patient states that she's nauseated but no vomiting denies any focal weakness. Denies fever, chills. She states she does have some photophobia. - Related Data Home Medications Medication Instructions Recorded Confirmed Levothyroxine Sodium [Synthroid] 50 mcg PO DAILY 08/10/14 12/05/16 Previous Rx's Medication Instructions Recorded amLODIPine [Norvasc] 5 mg PO DAILY tab 11/20/15 Phenytoin Sodium Extended 100 mg PO TID #21 capsule 09/01/16 [Dilantin] Allergies Allergy/AdvReac Type Severity Reaction Status Date / Time gabapentin [From Neurontin] Allergy Itching Verified 12/05/16 19:49 latex Allergy Anaphylaxis Verified 12/05/16 19:49 naproxen [From Naprosyn] Allergy Anaphylaxis Verified 12/05/16 19:49 Penicillins Allergy Anaphylaxis Verified 12/05/16 19:49 quetiapine fumarate Allergy Itching, Verified 12/05/16 19:49 [From Seroquel] leg cramps rofecoxib [From Vioxx] Allergy Itching, Verified 12/05/16 19:49 leg cramps terfenadine [From Seldane] Allergy Rash/Hives Verified 12/05/16 19:49 calcium carbonate [From DHEA] AdvReac Chest Pain Verified 12/05/16 19:49 calcium phosphate,dibasic AdvReac Chest Pain Verified 12/05/16 19:49 [From DHEA] clindamycin AdvReac muscle Verified 12/05/16 19:49 cramps dextromethorphan HBr AdvReac face/neck Verified 12/05/16 19:49 [From NyQuil] flushing diazepam [From Valium] AdvReac Nausea & Verified 12/05/16 19:49 Vomiting divalproex sodium AdvReac Nausea & Verified 12/05/16 19:53 [From Depakote] Vomiting doxylamine [From NyQuil] AdvReac face "beet Verified 12/05/16 19:49 red", elevated temp. ibuprofen [From Motrin] AdvReac abdominal Verified 12/05/16 19:49 & muscle cramps indomethacin [From Indocin] AdvReac Abdominal Verified 12/05/16 19:49 Pain,N/V ketorolac tromethamine AdvReac "built up Verified 12/05/16 19:49 [From Toradol] in system", had to be given something to reverse metoclopramide HCl AdvReac muscle Verified 12/05/16 19:49 [From Reglan] cramps prasterone (DHEA) [From DHEA] AdvReac Chest Pain Verified 12/05/16 19:49 propranolol AdvReac Chest Pain Verified 12/05/16 19:49 pseudoephedrine HCl AdvReac face "beet Verified 12/05/16 19:49 [From NyQuil] red", elevated temp. sumatriptan [From Imitrex] AdvReac migrane Verified 12/05/16 19:49 sumatriptan succinate AdvReac migrane Verified 12/05/16 19:49 [From Imitrex] topiramate [From Topamax] AdvReac "built up Verified 12/05/16 19:49 in system", had to be given something to reverse tramadol AdvReac Nausea & Verified 12/05/16 19:49 Vomiting trazodone AdvReac "built up Verified 12/05/16 19:49 in system", had to be given something to reverse zolpidem tartrate AdvReac "Became Verified 12/05/16 19:49 [From Ambien] violent with no memory" artificial sweetener AdvReac SEVERE Uncoded 12/05/16 19:49 MIGRAINE HEADACHE Review of Systems ROS Statement: Those systems with pertinent positive or pertinent negative responses have been documented in the HPI. ROS Other: All systems not noted in ROS Statement are negative. Past Medical History Past Medical History: Hyperlipidemia, Hypertension, Seizure Disorder, Thyroid Disorder Additional Past Medical History / Comment(s): Migraines. Viral MENINGITIS X2, 1994, 2000. CHRONIC BACK PAIN R/T FALL IN 1998. History of Any Multi-Drug Resistant Organisms: None Reported Past Surgical History: Appendectomy, Section, Cholecystectomy, Hernia Repair, Hysterectomy, Orthopedic Surgery, Tonsillectomy, Tubal Ligation Additional Past Surgical History / Comment(s): Hiatal Hernia, UMB HERNIA Repair. LT ROTATOR REPAIR. TOSHA KNEE SCOPES. Past Anesthesia/Blood Transfusion Reactions: No Reported Reaction Additional Past Anesthesia/Blood Transfusion Reaction / Comment(s): CLAUSTROPHOBIC Past Psychological History: Anxiety, Bipolar, Panic Disorder Smoking Status: Current every day smoker Past Alcohol Use History: Occasional Past Drug Use History: None Reported - Past Family History Mother Family Medical History: Cancer, Dementia, Diabetes Mellitus, GERD/Reflux, Hyperlipidemia, Hypertension, Thyroid Disorder Additional Family Medical History / Comment(s): quad cabg, cardiac stents, toes amp. Father History Unknown: Yes Family Medical History: No Reported History General Exam Limitations: no limitations General appearance: alert, in no apparent distress Head exam: Present: atraumatic, normocephalic, normal inspection Eye exam: Present: normal appearance, PERRL, EOMI. Absent: scleral icterus, conjunctival injection, periorbital swelling ENT exam: Present: normal exam, normal oropharynx, mucous membranes moist Neck exam: Present: normal inspection, full ROM. Absent: tenderness, meningismus, lymphadenopathy Respiratory exam: Present: normal lung sounds bilaterally. Absent: respiratory distress, wheezes, rales, rhonchi, stridor Cardiovascular Exam: Present: regular rate, normal rhythm, normal heart sounds. Absent: systolic murmur, diastolic murmur, rubs, gallop, clicks Extremities exam: Present: normal inspection, full ROM, normal capillary refill. Absent: tenderness, pedal edema, joint swelling, calf tenderness Neurological exam: Present: alert, oriented X3, CN II-XII intact, reflexes normal. Absent: motor sensory deficit Course Vital Signs 12/05/16 19:47 Temperature 98.2 F Pulse Rate 90 Respiratory 20 Rate Blood Pressure 150/92 O2 Sat by Pulse 95 Oximetry Medical Decision Making - Medical Decision Making 46-year-old female presented emergency for spinal headache. Dr. An did talk with anesthesia who came down and evaluated the patient stated that we should just give the patient caffeine and not a blood patch on the patient. Patient will be given medications and discharged. Disposition Clinical Impression: Spinal headache Disposition: HOME SELF-CARE Condition: Stable Instructions: Acute Headache (ED) Additional Instructions: Please return to the Emergency Department if symptoms worsen or any other concerns. Referrals: Ayush Mueller MD [Primary Care Provider] - 1-2 days Time of Disposition: 21:14
[2016-12-05] MEDS ORDERED: CAFFEINE CITRATE 500 MG in DEXTROSE 5% IN WATER 50 ML IVPB STA ×2 (20:27)
--- NOTE | 2016-12-05 20:41 | P.PN ---
Progress Note - Text 12/05 2032 46-year-old female was admitted to the ER with the spinal headache.I was consulted by Dr. canales to examine the patient and assess her for a potential epidural blood patch. Patient had a spinal tap done by Dr. Tracy to rule out pseudotumor cerebri. Patient has a headache since then and has photophobia along with it.she also has had some nausea and vomiting. The ER physician had ordered Zofran and IV Dilaudid. On examination the patient has very poor IV access and it would be very hard to draw any blood for the blood patch. Therefore I ordered IV caffeine for her and instructed her to take po caffeine tablets as well as caffeinated drinks. At this time I decided not to do an epidural blood patch
[2016-12-05] MEDS ORDERED: CAFFEINE-SODIUM BENZOATE 500 MG in SODIUM CHLORIDE 0.9% 1,000 ML IVPB ONE (20:45)
[2016-12-05 22:02] VITALS: BP 168/75; PULSE 68; RESP 16; TEMP 98
== END 2016-12-05 22:01 | disposition home or self-care (01) ==
LOC: EC 19:39
DX: G97.1 Other reaction to spinal and lumbar puncture (principal); E07.9 Disorder of thyroid, unspecified; F17.200 Nicotine dependence, unspecified, uncomplicated; Z86.69 Personal history of other diseases of the nervous system and sense organs; Z91.040 Latex allergy status; Z88.0 Allergy status to penicillin; Z88.6 Allergy status to analgesic agent; Z88.1 Allergy status to other antibiotic agents; Z88.8 Allergy status to other drugs, medicaments and biological substances; Z91.02 Food additives allergy status; Z79.899 Other long term (current) drug therapy
CPT/HCPCS: 99283; 96365; 96375 ×2; J2405; J1170

== ENCOUNTER 2016-12-10 18:24 | Emergency (ER) | payer OTHER ==
[2016-12-10] MEDS ORDERED: diphenhydrAMINE 50 MG/ML 1 ML VIAL IVP STA (18:47)
[2016-12-10] MEDS ORDERED: CAFFEINE-SODIUM BENZOATE 500 MG in SODIUM CHLORIDE 0.9% 1,000 ML IVPB ONE (18:47)
--- NOTE | 2016-12-10 19:04 | ED ---
General Adult HPI <Greg Lawrence J - Last Filed: 12/10/16 20:19> - General Source: patient, RN notes reviewed Mode of arrival: wheelchair Limitations: no limitations <Alessia Gracia - Last Filed: 12/10/16 21:20> - General Chief complaint: Headache Stated complaint: spinal migraine x 1wk Time Seen by Provider: 12/10/16 18:39 - History of Present Illness Initial comments: 46 yo female presents to the ER with cc of headache. Patient had Dr. Garcia give us ninth headache. Patient had a spinal one week ago at the [facility]. Patient states that she came in and they gave her caffeine intake been increasing her caffeine intake at home but she is just not feeling much improvement. Patient states she continues to have headache whenever she sits up patient is chronically of headaches but states that this is new since the lumbar puncture. Patient denies any nausea or vomiting with this. He denies fever chills any falls traumas or injuries. Patient was concerned due to her continued headache so she thought that she should be reevaluated.Patient denies any recent fever, chills, shortness of breath, chest pain, back pain, abdominal pain, nausea vomiting, numbness or tingling, dysuria or hematuria, constipation or diarrhea, visual changes, or any other current symptoms. (Alessia Gracia) - Related Data Home Medications Medication Instructions Recorded Confirmed Levothyroxine Sodium [Synthroid] 50 mcg PO DAILY 08/10/14 12/10/16 Caffeine Tabs 1 tab PO BID 12/10/16 12/10/16 Previous Rx's Medication Instructions Recorded amLODIPine [Norvasc] 5 mg PO DAILY tab 11/20/15 Phenytoin Sodium Extended 100 mg PO TID #21 capsule 09/01/16 [Dilantin] Allergies Allergy/AdvReac Type Severity Reaction Status Date / Time gabapentin [From Neurontin] Allergy Itching Verified 12/10/16 18:54 latex Allergy Anaphylaxis Verified 12/10/16 18:54 naproxen [From Naprosyn] Allergy Anaphylaxis Verified 12/10/16 18:54 Penicillins Allergy Anaphylaxis Verified 12/10/16 18:54 quetiapine fumarate Allergy Itching, Verified 12/10/16 18:54 [From Seroquel] leg cramps rofecoxib [From Vioxx] Allergy Itching, Verified 12/10/16 18:54 leg cramps terfenadine [From Seldane] Allergy Rash/Hives Verified 12/10/16 18:54 calcium carbonate [From DHEA] AdvReac Chest Pain Verified 12/10/16 18:54 calcium phosphate,dibasic AdvReac Chest Pain Verified 12/10/16 18:54 [From DHEA] clindamycin AdvReac muscle Verified 12/10/16 18:54 cramps dextromethorphan HBr AdvReac face/neck Verified 12/10/16 18:54 [From NyQuil] flushing diazepam [From Valium] AdvReac Nausea & Verified 12/10/16 18:54 Vomiting divalproex sodium AdvReac Nausea & Verified 12/10/16 18:54 [From Depakote] Vomiting doxylamine [From NyQuil] AdvReac face "beet Verified 12/10/16 18:54 red", elevated temp. ibuprofen [From Motrin] AdvReac abdominal Verified 12/10/16 18:54 & muscle cramps indomethacin [From Indocin] AdvReac Abdominal Verified 12/10/16 18:54 Pain,N/V ketorolac tromethamine AdvReac "built up Verified 12/10/16 18:54 [From Toradol] in system", had to be given something to reverse metoclopramide HCl AdvReac muscle Verified 12/10/16 18:54 [From Reglan] cramps prasterone (DHEA) [From DHEA] AdvReac Chest Pain Verified 12/10/16 18:54 propranolol AdvReac Chest Pain Verified 12/10/16 18:54 pseudoephedrine HCl AdvReac face "beet Verified 12/10/16 18:54 [From NyQuil] red", elevated temp. sumatriptan [From Imitrex] AdvReac migrane Verified 12/10/16 18:54 sumatriptan succinate AdvReac migrane Verified 12/10/16 18:54 [From Imitrex] topiramate [From Topamax] AdvReac "built up Verified 12/10/16 18:54 in system", had to be given something to reverse tramadol AdvReac Nausea & Verified 12/10/16 18:54 Vomiting trazodone AdvReac "built up Verified 12/10/16 18:54 in system", had to be given something to reverse zolpidem tartrate AdvReac "Became Verified 12/10/16 18:54 [From Ambien] violent with no memory" artificial sweetener AdvReac SEVERE Uncoded 12/10/16 18:35 MIGRAINE HEADACHE Review of Systems ROS Other: All systems not noted in ROS Statement are negative. <Greg Lawrence - Last Filed: 12/10/16 20:19> ROS Other: All systems not noted in ROS Statement are negative. <Alessia Gracia - Last Filed: 12/10/16 21:20> ROS Statement: Those systems with pertinent positive or pertinent negative responses have been documented in the HPI. Past Medical History Past Medical History: Hyperlipidemia, Hypertension, Seizure Disorder, Thyroid Disorder Additional Past Medical History / Comment(s): Migraines. Viral MENINGITIS X2, 1993, 2000. CHRONIC BACK PAIN R/T FALL IN 1998. History of Any Multi-Drug Resistant Organisms: None Reported Past Surgical History: Appendectomy, Section, Cholecystectomy, Hernia Repair, Hysterectomy, Orthopedic Surgery, Tonsillectomy, Tubal Ligation Additional Past Surgical History / Comment(s): Hiatal Hernia, UMB HERNIA Repair. LT ROTATOR REPAIR. TOSHA KNEE SCOPES. Past Anesthesia/Blood Transfusion Reactions: No Reported Reaction Additional Past Anesthesia/Blood Transfusion Reaction / Comment(s): CLAUSTROPHOBIC Past Psychological History: Anxiety, Bipolar, Panic Disorder Smoking Status: Current every day smoker Past Alcohol Use History: Occasional Past Drug Use History: None Reported - Past Family History Mother Family Medical History: Cancer, Dementia, Diabetes Mellitus, GERD/Reflux, Hyperlipidemia, Hypertension, Thyroid Disorder Additional Family Medical History / Comment(s): quad cabg, cardiac stents, toes amp. Father History Unknown: Yes Family Medical History: No Reported History <Alessia Gracia - Last Filed: 12/10/16 21:20> General Exam <Greg Lawrence - Last Filed: 12/10/16 20:19> Limitations: no limitations <Alessia Gracia - Last Filed: 12/10/16 21:20> - General Exam Comments Initial Comments: General: The patient is awake and alert, in no distress, and does not appear acutely ill. Eye: Pupils are equal, round and reactive to light, extra-ocular movements are intact; there is normal conjunctiva bilaterally. No signs of icterus. Ears, nose, mouth and throat: There are moist mucous membranes and no oral lesions. Neck: The neck is supple, there is no tenderness. Cardiovascular: There is a regular rate and rhythm. No murmur, rub or gallop is appreciated. Respiratory: Lungs are clear to auscultation, respirations are non-labored, breath sounds are equal. No wheezes, stridor, rales, or rhonchi. Gastrointestinal: Soft, non-distended, non-tender abdomen without masses or organomegaly noted. There is no rebound or guarding present. No CVA tenderness. Bowel sounds are unremarkable. Back: There is no tenderness to palpation in the midline. There is no obvious deformity. No rashes noted. Musculoskeletal: Normal ROM, no tenderness, There is no pedal edema. There is no calf tenderness or swelling. Sensation intact. Pulses equal bilaterally 2+. Neurological: CN II-XII intact, There are no obvious motor or sensory deficits. Coordination appears grossly intact. Speech is normal. Skin: Skin is warm and dry and no rashes or lesions are noted. Psychiatric: Cooperative, appropriate mood & affect, normal judgment. (Alessia Gracia) Medical Decision Making <Greg Lawrence - Last Filed: 12/10/16 20:19> <Alessia Gracia - Last Filed: 12/10/16 21:20> - Medical Decision Making 46-year-old female presents for positional headache after spinal tap. At this time patient went black patch. We did discuss follow-up with discussed return parameters all patient's questions. She states she understood and she is given plan. At this time patient will be discharged. (Alessia Gracia) Disposition <Greg Lawrence - Last Filed: 12/10/16 20:19> Time of Disposition: 21:20 <Alessia Gracia - Last Filed: 12/10/16 21:20> Clinical Impression: Spinal headache Disposition: HOME SELF-CARE Condition: Stable Instructions: Acute Headache (ED) Additional Instructions: Please use medication as discussed. Please follow up with family doctor if symptoms have not improved over the next two days. Please return to the emergency room if your symptoms increase or worsen or for any other concerns. Referrals: Ayush Mueller MD [Primary Care Provider] - 1-2 days
[2016-12-10 21:02] VITALS: RESP 18
--- NOTE | 2016-12-10 21:11 | P.PN ---
Progress Note - Text Anesthesia was consulted to evaluate a patient that has symptoms and signs of a post dural puncture headache. The patient received a spinal [7] days ago. The patient states that her headache is increased in severity when she is standing and sitting. Her headache symptoms subside when she is in the supine position. The patient has tried a course of conservative therapy including fluids, caffeine and pain meds. The conservative treatment has not relieved her headache symptoms when she is in the sitting and standing position. Patient states she feels pain in the back of her neck up into her temporal and frontal regions. Patient does not exhibit any photophobia. The patient does report some nausea at this time. Procedure: The procedure and its risks and benefits were explained to the patient. The patient understood and consented to have an lumbar epidural epidural blood patch performed. The patient was placed in the sitting position. The patient's low back was sterilely prepped and draped. An 18- gauge Touhy was placed in the patient's epidural space at L3-L4 without difficulty. No CSF or blood was observed. Then approximately[15 ] mL's of the patient's autologous blood was injected in the epidural space incrementally. Patient's blood was drawn by an dam tender assistant under sterile conditions. The patient then noticed a decrease intensity of her headache in the sitting position almost immdiately. The patient was then placed in the supine position. She tolerated the procedure well. The patient was instructed to remain at bed rest for the next 2-3 hours after she gets home from the emergency room.. She also was instructed to continue with fluids and any pain medicines as needed. The patient was also instructed to refrain from any bending or lifting today.
[2016-12-10] MEDS ORDERED: ONDANSETRON 4 MG/2 ML VIAL IVP STA (21:13)
[2016-12-10 21:37] VITALS: BP 150/74; PULSE 98; TEMP 98.2
== END 2016-12-10 21:37 | disposition home or self-care (01) ==
LOC: EC 18:24
DX: G97.1 Other reaction to spinal and lumbar puncture (principal); E07.9 Disorder of thyroid, unspecified; F17.200 Nicotine dependence, unspecified, uncomplicated; Z79.899 Other long term (current) drug therapy; Z88.0 Allergy status to penicillin; Z88.1 Allergy status to other antibiotic agents; Z88.5 Allergy status to narcotic agent; Z88.6 Allergy status to analgesic agent; Z88.8 Allergy status to other drugs, medicaments and biological substances; Z91.018 Allergy to other foods; Z91.040 Latex allergy status
CPT/HCPCS: 99283; 96365; 96366; 96375 ×2; J1200; J2405

== ENCOUNTER 2016-12-12 23:44 | Emergency (ER) | payer OTHER ==
[2016-12-12 23:50] VITALS: TEMP 99.9
[2016-12-13] MEDS ORDERED: HYDROmorphone 1 MG/ML 1 ML SYRINGE IVP STA ×2 (00:14→01:11)
[2016-12-13] MEDS ORDERED: diphenhydrAMINE 50 MG/ML 1 ML VIAL IVP STA (00:14)
[2016-12-13] MEDS ORDERED: SODIUM CHLORIDE 0.9% 1,000 ML IV ONE (00:14)
[2016-12-13] MEDS ORDERED: ONDANSETRON 4 MG/2 ML VIAL IVP STA (00:16)
--- NOTE | 2016-12-13 00:43 | ED ---
Headache HPI - General Chief Complaint: Headache Stated Complaint: Migraine Time Seen by Provider: 12/12/16 23:53 Mode of arrival: ambulatory Limitations: no limitations - History of Present Illness Initial Comments: 46-year-old female patient presented to emergency department today with complaints of migraine headache. Patient states that this headache started for her on Friday. Patient states that on 12/04/2016 she had a lumbar puncture testing for pseudotumor cerebri and had subsequent development of spinal headache. Patient states she did have a blood patch on 12/10/2016. Patient states that the symptoms from the spinal headache subsided however she had onset of her typical migraine symptoms. Patient states that this feels completely different from the spinal headache. Patient states that the headache is mostly on the right side encompassing her right eye. She states that she has been light and sound sensitive. She states she has had some nausea however has not vomited. Patient states that these symptoms are very typical for her usual migraine pattern. 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 Patient denies any recent fever, chills, shortness breath, chest pain, abdominal pain, vomiting, diarrhea, constipation, back pain, numbness, tingling, weakness, headache, visual changes, or any other complaints. - Related Data Home Medications Medication Instructions Recorded Confirmed Levothyroxine Sodium [Synthroid] 50 mcg PO DAILY 08/10/14 12/12/16 Previous Rx's Medication Instructions Recorded amLODIPine [Norvasc] 5 mg PO DAILY tab 11/20/15 Phenytoin Sodium Extended 100 mg PO TID #21 capsule 09/01/16 [Dilantin] Allergies Allergy/AdvReac Type Severity Reaction Status Date / Time gabapentin [From Neurontin] Allergy Itching Verified 12/12/16 23:46 latex Allergy Anaphylaxis Verified 12/12/16 23:46 naproxen [From Naprosyn] Allergy Anaphylaxis Verified 12/12/16 23:46 Penicillins Allergy Anaphylaxis Verified 12/12/16 23:46 quetiapine fumarate Allergy Itching, Verified 12/12/16 23:46 [From Seroquel] leg cramps rofecoxib [From Vioxx] Allergy Itching, Verified 12/12/16 23:46 leg cramps terfenadine [From Seldane] Allergy Rash/Hives Verified 12/12/16 23:46 calcium carbonate [From DHEA] AdvReac Chest Pain Verified 12/12/16 23:46 calcium phosphate,dibasic AdvReac Chest Pain Verified 12/12/16 23:46 [From DHEA] clindamycin AdvReac muscle Verified 12/12/16 23:46 cramps dextromethorphan HBr AdvReac face/neck Verified 12/12/16 23:46 [From NyQuil] flushing diazepam [From Valium] AdvReac Nausea & Verified 12/12/16 23:46 Vomiting divalproex sodium AdvReac Nausea & Verified 12/12/16 23:46 [From Depakote] Vomiting doxylamine [From NyQuil] AdvReac face "beet Verified 12/12/16 23:46 red", elevated temp. ibuprofen [From Motrin] AdvReac abdominal Verified 12/12/16 23:46 & muscle cramps indomethacin [From Indocin] AdvReac Abdominal Verified 12/12/16 23:46 Pain,N/V ketorolac tromethamine AdvReac "built up Verified 12/12/16 23:46 [From Toradol] in system", had to be given something to reverse metoclopramide HCl AdvReac muscle Verified 12/12/16 23:46 [From Reglan] cramps prasterone (DHEA) [From DHEA] AdvReac Chest Pain Verified 12/12/16 23:46 propranolol AdvReac Chest Pain Verified 12/12/16 23:46 pseudoephedrine HCl AdvReac face "beet Verified 12/12/16 23:46 [From NyQuil] red", elevated temp. sumatriptan [From Imitrex] AdvReac migrane Verified 12/12/16 23:46 sumatriptan succinate AdvReac migrane Verified 12/12/16 23:46 [From Imitrex] topiramate [From Topamax] AdvReac "built up Verified 12/12/16 23:46 in system", had to be given something to reverse tramadol AdvReac Nausea & Verified 12/12/16 23:46 Vomiting trazodone AdvReac "built up Verified 12/12/16 23:46 in system", had to be given something to reverse zolpidem tartrate AdvReac "Became Verified 12/12/16 23:46 [From Ambien] violent with no memory" artificial sweetener AdvReac SEVERE Uncoded 12/12/16 23:46 MIGRAINE HEADACHE Review of Systems ROS Statement: Those systems with pertinent positive or pertinent negative responses have been documented in the HPI. ROS Other: All systems not noted in ROS Statement are negative. Past Medical History Past Medical History: Hyperlipidemia, Hypertension, Seizure Disorder, Thyroid Disorder Additional Past Medical History / Comment(s): Migraines. Viral MENINGITIS X3, A CHILD, 1993, 2000. CHRONIC BACK PAIN, History of Any Multi-Drug Resistant Organisms: None Reported Past Surgical History: Appendectomy, Section, Cholecystectomy, Hernia Repair, Hysterectomy, Orthopedic Surgery, Tonsillectomy, Tubal Ligation Additional Past Surgical History / Comment(s): Hiatal Hernia, [facility]MB HERNIA Repair. LT ROTATOR REPAIR. TOSHA KNEE SCOPES.PAIN CLINIC PROCEDURES Past Anesthesia/Blood Transfusion Reactions: No Reported Reaction Additional Past Anesthesia/Blood Transfusion Reaction / Comment(s): CLAUSTROPHOBIC Past Psychological History: Anxiety, Bipolar, Panic Disorder Smoking Status: Current every day smoker Past Alcohol Use History: Occasional Past Drug Use History: None Reported - Past Family History Mother Family Medical History: Cancer, Dementia, Diabetes Mellitus, GERD/Reflux, Hyperlipidemia, Hypertension, Thyroid Disorder Additional Family Medical History / Comment(s): quad cabg, cardiac stents, toes amp. Father History Unknown: Yes Family Medical History: No Reported History General Exam Limitations: no limitations General appearance: alert, in no apparent distress Head exam: Present: atraumatic, normocephalic, normal inspection Eye exam: Present: normal appearance, PERRL, EOMI. Absent: scleral icterus, conjunctival injection, periorbital swelling ENT exam: Present: normal exam, normal oropharynx, mucous membranes moist, TM's normal bilaterally Neck exam: Present: normal inspection, full ROM. Absent: tenderness, meningismus, lymphadenopathy Respiratory exam: Present: normal lung sounds bilaterally. Absent: respiratory distress, wheezes, rales, rhonchi, stridor Cardiovascular Exam: Present: regular rate, normal rhythm, normal heart sounds. Absent: systolic murmur, diastolic murmur, rubs, gallop, clicks GI/Abdominal exam: Present: soft, normal bowel sounds. Absent: distended, tenderness, guarding, rebound, rigid Extremities exam: Present: normal inspection, full ROM, normal capillary refill. Absent: tenderness, pedal edema, joint swelling, calf tenderness Neurological exam: Present: alert, oriented X3, CN II-XII intact Psychiatric exam: Present: normal affect, normal mood Skin exam: Present: warm, dry, intact, normal color. Absent: rash Course Vital Signs 12/12/16 12/13/16 23:46 00:35 Temperature 99.9 F H Pulse Rate 104 H 85 Respiratory 18 18 Rate Blood Pressure 144/95 145/102 O2 Sat by Pulse 99 97 Oximetry Medical Decision Making - Medical Decision Making 46-year-old female patient presented to emergency permit today for complaints of migraine headache. Patient states that this headache is typical of her usual migraine pattern. Physical exam was unremarkable, patient is neurologically intact. Patient was given IV fluids as well as pain medications here in the department which did improve her symptoms. Patient will be discharged home to follow-up with her neurologist as she has planned. She is instructed to follow-up with her primary care physician for recheck in 1-2 days. She is instructed to return here immediately for any new, worsening, or concerning symptoms. Disposition Clinical Impression: Migraine headache Disposition: HOME SELF-CARE Condition: Good Instructions: Migraine Headache (ED) Additional Instructions: Increase fluids. Keep appointment with neurologist as you have planned. Follow -up with her primary care physician for recheck in 1-2 days. Return here immediately for any new, worsening, or concerning symptoms. Referrals: Ayush Mueller MD [Primary Care Provider] - 1-2 days Time of Disposition: 01:12
[2016-12-13 01:21] VITALS: BP 143/96; PULSE 87; RESP 16
== END 2016-12-13 01:28 | disposition home or self-care (01) ==
LOC: EC 23:44
DX: G43.909 Migraine, unspecified, not intractable, without status migrainosus (principal); E07.9 Disorder of thyroid, unspecified; F17.200 Nicotine dependence, unspecified, uncomplicated; Z79.899 Other long term (current) drug therapy; Z88.0 Allergy status to penicillin; Z88.6 Allergy status to analgesic agent; Z88.8 Allergy status to other drugs, medicaments and biological substances; Z88.1 Allergy status to other antibiotic agents; Z91.040 Latex allergy status; Z88.5 Allergy status to narcotic agent; Z91.018 Allergy to other foods
CPT/HCPCS: 99283; 96374; 96375 ×2; 96376; 96361; J1200; J2405; J1170

== ENCOUNTER 2016-12-17 07:54 | Day surgery (SDC) | payer OTHER ==
[2016-12-12 14:10] VITALS: BMI 30.1
[2016-12-17 08:40] VITALS: RESP 16; TEMP 98.1
[2016-12-17] MEDS ORDERED: LACTATED RINGERS 1,000 ML IV ONE (08:41)
[2016-12-17] MEDS ORDERED: LIDOCAINE 1% 20 ML VIAL (10MG/ML) FOR IV START INTRADERMA ONE (08:44)
--- NOTE | 2016-12-17 09:12 | P.PCN ---
Date of Procedure: 12/17/16 Preoperative Diagnosis: Postoperative Diagnosis: Procedure(s) Performed: Implants: Surgeon: Cj Isaacs Pathology: none sent Condition: stable Disposition: PACU Indications for Procedure: Operative Findings: Description of Procedure: Pre-operative diagnosis: 1- Bilateral occipital neuralgia Post Operative Diagnosis: 1- Bilateral occipital neuralgia Procedure: Bilateral occipital nerve block ANESTHESIA: Conscious sedation with Versed. EBL: Minimal PROCEDURE INDICATION: The patient with neck pain and headache secondary to bilateral occipital neuralgia and has failed conservative management. No use of blood thinners. PROCEDURE DESCRIPTION / TECHNIQUE: The patient was seen and identified in the preoperative area. Risks, benefits, complications, and alternatives were discussed with the patient (including but not limited to incomplete pain relief , bleeding, infection, nerve damage, and allergies to medications), the patient agreed to proceed with the procedure and signed the consent after all questions were answered. Patient was taken to the OR and time out was completed to verify proper patient , position, laterality of pain, and allergies. Pt was placed in the sitting position. IV was started. Vital signs remained stable throughout the procedure. Conscious sedation was used during the procedure to decrease patients anxiety. The cervical area and bilateral occipital areas were prepped in the usual sterile fashion. The right occipital ridge was palpated and was then accessed with a 25 G needle. Then after negative aspiration, 3 ml of the total 6 ml block solution containing 4 ml of PF Bupivacaine 0.5% and Kenalog 80 mg was injected. Needle was withdrawn intact. The entire procedure was then repeated on the left side exactly as above. Needle was withdrawn intact and there were no acute complications. DISPOSITION / PLANS: The patient was placed in a supine position and transferred to the recovery area in a stable condition for observation and was discharged from the recovery room after meeting discharge criteria. Home discharge instructions given to the patient by the staff. The patient was reexamined prior to discharge. The patient will schedule a follow up injection in approximately 2-4 weeks.
[2016-12-17] MEDS ORDERED: IV FLUID CONTINUATION 1,000 ML IV ONE (09:27)
[2016-12-17 09:44] VITALS: BP 146/90; PULSE 87
== END 2016-12-17 09:53 | disposition home or self-care (01) ==
LOC: ORPAIN 07:54
PROVIDERS: ATTEND Anesthesiology
DX: M54.81 Occipital neuralgia (principal); E78.5 Hyperlipidemia, unspecified; I10 Essential (primary) hypertension; G40.909 Epilepsy, unspecified, not intractable, without status epilepticus; E07.9 Disorder of thyroid, unspecified; G43.909 Migraine, unspecified, not intractable, without status migrainosus; M54.9 Dorsalgia, unspecified; G89.29 Other chronic pain; Z91.81 History of falling; F17.200 Nicotine dependence, unspecified, uncomplicated; Z79.899 Other long term (current) drug therapy; Z88.0 Allergy status to penicillin; Z88.8 Allergy status to other drugs, medicaments and biological substances; Z88.6 Allergy status to analgesic agent; Z91.040 Latex allergy status
CPT/HCPCS: 64405; J2250; J3301; J2001; 99152

== ENCOUNTER 2017-01-02 08:48 | Day surgery (SDC) | payer OTHER ==
[~2017-01-02 08:48] MED LIST changes: +LACTATED RINGERS 1,000 ML IV ONE; -LACTATED RINGERS 1,000 ML IV SCH
[2017-01-02] MEDS ORDERED: LIDOCAINE 1% 20 ML VIAL (10MG/ML) FOR IV START INTRADERMA ONE (09:50)
[2017-01-02 10:06] VITALS: TEMP 98.6
--- NOTE | 2017-01-02 11:26 | P.PCN ---
Date of Procedure: 01/02/17 Procedure(s) Performed: Pre-operative diagnosis: 1- Bilateral occipital neuralgea Post Operative Diagnosis 1- Bilateral occipital neuralgea Procedure: 1- Bilateral occipital nerve block ANESTHESIA: Conscious sedation with Versed. 2 mg and fentanyl 50 micrograms EBL: Minimal PROCEDURE INDICATION: The patient with neck pain and headache secondary to occipital neuralgea unresponsive to conservative treatments. PROCEDURE DESCRIPTION / TECHNIQUE: The patient was seen and identified in the preoperative area. Risks, benefits, complications, and alternatives were discussed with the patient, the patient agreed to proceed with the procedure and signed the consent. IV was started. Vital signs remained stable throughout the procedure. Patient was taken to the OR and time out was completed. The patient was placed in the pron (sitting ) position on the procedure table. A pillow was placed under the patients chest to increase the cervical interlaminar space. The cervical area and right occiptial area were prepped with alcohol swab. Critical pause was taken. Vital signs were closely monitored during the procedure. Conscious sedation was used during the procedure to decrease patients anxiety. The right occiptal ridge was palpated and was then accessed with a 25 G needle. Then after negative aspiration, 6 ml of the block solution containing 5ml of PF Buvicaine 0.5% and Kenalog 40 mg was injected. Needle was withdrawn intact. Then the same procedure was repeated on the left side and related the left occipital nerve block, after negative aspiration 6 mL of the block solution containing ropivacaine 0.5% and 40 mg of Kenalog injected after negative aspiration Patient tolerated procedure well. No acute complications.
[2017-01-02] MEDS ORDERED: IV FLUID CONTINUATION 1,000 ML IV ONE (11:33)
[2017-01-02 11:45] VITALS: RESP 18
[2017-01-02 11:59] VITALS: BP 141/96; PULSE 95
== END 2017-01-02 12:11 | disposition home or self-care (01) ==
LOC: ORPAIN 08:48
PROVIDERS: ATTEND Specialist
DX: M54.81 Occipital neuralgia (principal); Z91.040 Latex allergy status
CPT/HCPCS: 64405; J2250; J3301; J3010; 99152

== ENCOUNTER 2017-01-10 21:26 | Emergency (ER) | payer OTHER ==
[2017-01-10] MEDS ORDERED: HYDROmorphone 1 MG/ML 1 ML SYRINGE IVP STA ×2 (22:04→23:38)
[2017-01-10] MEDS ORDERED: ONDANSETRON 4 MG/2 ML VIAL IVP STA (22:04)
--- NOTE | 2017-01-10 22:06 | ED ---
Abdominal Pain HPI - General Chief Complaint: Abdominal Pain Stated Complaint: abdominal pain Time Seen by Provider: 01/10/17 21:51 Source: patient Mode of arrival: wheelchair Limitations: no limitations - History of Present Illness Initial Comments: 46-year-old female patient presents to emergency department today for complaints of generalized abdominal pain. Patient states the pain is sharp and stabbing, and radiates through to her back. She states that she has had this for over a week now. States that she was recently admitted for colitis and discharged on 01/08/2017. States that she has been discharge she has been having increased abdominal pain, multiple episodes of diarrhea daily, and vomiting. She states she has been taking the Cipro as directed. Denies any hematemesis, hematochezia, melena, dysuria, hematuria, urinary urgency, urinary frequency. She does have hot and cold flashes but denies any documented fever. She says she is barely been able to keep any food or fluids down. She denies any recent travel or sick contacts. Patient denies any recent rash, shortness breath, chest pain, back pain, numbness, tingling, dizziness, weakness, headache , visual changes, or any other complaints. - Related Data Home Medications Medication Instructions Recorded Confirmed Levothyroxine Sodium [Synthroid] 50 mcg PO DAILY 08/10/14 01/10/17 Previous Rx's Medication Instructions Recorded amLODIPine [Norvasc] 5 mg PO DAILY tab 11/20/15 Phenytoin Sodium Extended 100 mg PO TID #21 capsule 09/01/16 [Dilantin] Ciprofloxacin HCl [Cipro] 500 mg PO Q12HR #14 tablet 01/08/17 traMADol HCl [Ultram] 50 mg PO Q6H PRN #10 tab 01/08/17 Allergies Allergy/AdvReac Type Severity Reaction Status Date / Time gabapentin [From Neurontin] Allergy Itching Verified 01/10/17 21:45 latex Allergy Anaphylaxis Verified 01/10/17 21:45 naproxen [From Naprosyn] Allergy Anaphylaxis Verified 01/10/17 21:45 Penicillins Allergy Anaphylaxis Verified 01/10/17 21:45 quetiapine fumarate Allergy Itching, Verified 01/10/17 21:45 [From Seroquel] leg cramps rofecoxib [From Vioxx] Allergy Itching, Verified 01/10/17 21:45 leg cramps terfenadine [From Seldane] Allergy Rash/Hives Verified 01/10/17 21:45 calcium carbonate [From DHEA] AdvReac Chest Pain Verified 01/10/17 21:45 calcium phosphate,dibasic AdvReac Chest Pain Verified 01/10/17 21:45 [From DHEA] clindamycin AdvReac muscle Verified 01/10/17 21:45 cramps dextromethorphan HBr AdvReac face/neck Verified 01/10/17 21:45 [From NyQuil] flushing diazepam [From Valium] AdvReac Nausea & Verified 01/10/17 21:45 Vomiting divalproex sodium AdvReac Nausea & Verified 01/10/17 21:45 [From Depakote] Vomiting doxylamine [From NyQuil] AdvReac face "beet Verified 01/10/17 21:45 red", elevated temp. ibuprofen [From Motrin] AdvReac abdominal Verified 01/10/17 21:45 & muscle cramps indomethacin [From Indocin] AdvReac Abdominal Verified 01/10/17 21:45 Pain,N/V ketorolac tromethamine AdvReac "built up Verified 01/10/17 21:45 [From Toradol] in system", had to be given something to reverse metoclopramide HCl AdvReac muscle Verified 01/10/17 21:45 [From Reglan] cramps prasterone (DHEA) [From DHEA] AdvReac Chest Pain Verified 01/10/17 21:45 propranolol AdvReac Chest Pain Verified 01/10/17 21:45 pseudoephedrine HCl AdvReac face "beet Verified 01/10/17 21:45 [From NyQuil] red", elevated temp. sumatriptan [From Imitrex] AdvReac migrane Verified 01/10/17 21:45 sumatriptan succinate AdvReac migrane Verified 01/10/17 21:45 [From Imitrex] topiramate [From Topamax] AdvReac "built up Verified 01/10/17 21:45 in system", had to be given something to reverse tramadol AdvReac Nausea & Verified 01/10/17 21:45 Vomiting trazodone AdvReac "built up Verified 01/10/17 21:45 in system", had to be given something to reverse zolpidem tartrate AdvReac "Became Verified 01/10/17 21:45 [From Ambien] violent with no memory" artificial sweetener AdvReac SEVERE Uncoded 01/10/17 21:32 MIGRAINE HEADACHE Review of Systems ROS Statement: Those systems with pertinent positive or pertinent negative responses have been documented in the HPI. ROS Other: All systems not noted in ROS Statement are negative. Past Medical History Past Medical History: Hyperlipidemia, Hypertension, Seizure Disorder, Thyroid Disorder Additional Past Medical History / Comment(s): Migraines, viral meningitis x3 as a child, 1993, 2000, chronic back pain, nerve blocks 08/2016 and 12/2016. History of Any Multi-Drug Resistant Organisms: None Reported Past Surgical History: Appendectomy, Section, Cholecystectomy, Hernia Repair, Hysterectomy, Orthopedic Surgery, Tonsillectomy, Tubal Ligation Additional Past Surgical History / Comment(s): Hiatal Hernia, umbilical hernia repair, left rotator cuff repair, bilateral knee scopes, pain clinic procedures. Past Anesthesia/Blood Transfusion Reactions: No Reported Reaction Additional Past Anesthesia/Blood Transfusion Reaction / Comment(s): Claustrophobic Past Psychological History: Anxiety, Bipolar, Panic Disorder Smoking Status: Current every day smoker Past Alcohol Use History: Occasional, Rare Past Drug Use History: None Reported - Past Family History Mother Family Medical History: Cancer, Dementia, Diabetes Mellitus, GERD/Reflux, Hyperlipidemia, Hypertension, Thyroid Disorder Additional Family Medical History / Comment(s): Quad CABG, cardiac stents, toes ampuated. Father History Unknown: Yes Family Medical History: No Reported History General Exam Limitations: no limitations General appearance: alert, in no apparent distress, other (This is a well- developed, well-nourished adult female patient in no acute distress. Vital signs upon presentation are temperature 97.9F, pulse 105, respirations 18, blood pressure 138/93, pulse ox 98% on room air.) Eye exam: Present: normal appearance, PERRL, EOMI. Absent: scleral icterus, conjunctival injection, periorbital swelling ENT exam: Present: normal exam, normal oropharynx, mucous membranes moist Neck exam: Present: normal inspection. Absent: tenderness, meningismus, lymphadenopathy Respiratory exam: Present: normal lung sounds bilaterally. Absent: respiratory distress, wheezes, rales, rhonchi, stridor Cardiovascular Exam: Present: regular rate, normal rhythm, normal heart sounds. Absent: systolic murmur, diastolic murmur, rubs, gallop, clicks GI/Abdominal exam: Present: soft, distended, tenderness (Generalized), normal bowel sounds. Absent: guarding, rebound, rigid Neurological exam: Present: alert, oriented X3, CN II-XII intact Psychiatric exam: Present: normal affect, normal mood Skin exam: Present: warm, dry, intact, normal color. Absent: rash Course Vital Signs 01/10/17 01/10/17 21:30 23:51 Temperature 97.9 F 97.5 F L Pulse Rate 105 H 75 Respiratory 18 16 Rate Blood Pressure 138/93 163/100 O2 Sat by Pulse 98 98 Oximetry Medical Decision Making - Medical Decision Making 46-year-old female patient presented for evaluation of generalized abdominal pain, vomiting, and diarrhea. Patient was recently discharged from the hospital for similar symptoms. She was diagnosed with colitis. She is still taking the Cipro antibiotics she was given at discharge. While in the department patient did not have any vomiting or diarrhea episodes. She was given IV fluids, IV pain medication and IV nausea medication. She reports her symptoms are mildly improved. Lab work was reviewed and was unremarkable. She will be discharged home to continue her antibiotics. She was instructed to increase her fluids. She does have an appointment with the visual display manager on 01/20/2017, I did urge her to keep this appointment. She is instructed to follow-up with her primary care physician for recheck in 1-2 days. She is instructed to return here immediately for any new, worsening, or concerning symptoms. - Lab Data Result diagrams: 01/10/17 22:41 01/10/17 22:41 Lab Results 01/10/17 01/10/17 Range/Units 22:41 22:41 WBC 12.7 H (3.8-10.6) k/uL RBC 4.04 (3.80-5.40) m/uL Hgb 13.1 (11.4-16.0) gm/dL Hct 40.1 (34.0-46.0) % MCV 99.3 (80.0-100.0) fL MCH 32.5 (25.0-35.0) pg MCHC 32.7 (31.0-37.0) g/dL RDW 16.1 H (11.5-15.5) % Plt Count 264 (150-450) k/uL Neutrophils % 74 % Lymphocytes % 19 % Monocytes % 5 % Eosinophils % 1 % Basophils % 0 % Neutrophils # 9.4 H (1.3-7.7) k/uL Lymphocytes # 2.4 (1.0-4.8) k/uL Monocytes # 0.6 (0-1.0) k/uL Eosinophils # 0.1 (0-0.7) k/uL Basophils # 0.0 (0-0.2) k/uL Anisocytosis Slight Macrocytosis Slight Sodium 140 (137-145) mmol/L Potassium 3.5 (3.5-5.1) mmol/L Chloride 108 H (98-107) mmol/L Carbon Dioxide 23 (22-30) mmol/L Anion Gap 9 mmol/L BUN 10 (7-17) mg/dL Creatinine 0.60 (0.52-1.04) mg/dL Est GFR (MDRD) Af Amer >60 (>60 ml/min/1.73 sqM) Est GFR (MDRD) Non-Af >60 (>60 ml/min/1.73 sqM) Glucose 90 (74-99) mg/dL Calcium 8.5 (8.4-10.2) mg/dL Total Bilirubin 0.1 L (0.2-1.3) mg/dL AST 21 (14-36) U/L ALT 43 (9-52) U/L Alkaline Phosphatase 98 (38-126) U/L Total Protein 6.1 L (6.3-8.2) g/dL Albumin 3.6 (3.5-5.0) g/dL Amylase 75 (30-110) U/L Lipase 266 (23-300) U/L - Radiology Data Radiology results: report reviewed, image reviewed 2 views of the abdomen showed bowel gas pattern is normal, no sign of intestinal obstruction or pneumoperitoneum. Fecal pattern is normal. There is no sign of a mass. There are no pathologic calcifications over the kidneys. There are clips from cholecystectomy. Lung bases are clear. Impression by Dr. Irwin shows nonacute abdomen. No change. Disposition Clinical Impression: Abdominal pain, Colitis Disposition: HOME SELF-CARE Condition: Good Instructions: Abdominal Pain (ED), Colitis (ED) Additional Instructions: Continue antibiotics as prescribed. Continue home pain medications. Increase her fluids. Follow-up with your primary care physician or visual display manager as soon as possible. Return here immediately for any new, worsening, or concerning symptoms. Referrals: Ayush Mueller MD [Primary Care Provider] - 1-2 days Time of Disposition: 23:36
[2017-01-10 22:50] LABS: Anisocytosis Slight; Basophils % (A) 0 %; CH 34.5; Eosinophils # (A) 0.1 k/uL (0-0.7); Eosinophils % (A) 1 %; HCT 40.1 % (34.0-46.0); HDW 2.71; HGB 13.1 gm/dL (11.4-16.0); Luc # (Auto) 0.22; Luc % (Auto) 2; Lymphocytes # (A) 2.4 k/uL (1.0-4.8); Lymphocytes % (A) 19 %; MCH 32.5 pg (25.0-35.0); MCHC 32.7 g/dL (31.0-37.0); MCV 99.3 fL (80.0-100.0); Macrocytosis Slight; Mean Platelet Volume 8.6; Monocytes # (A) 0.6 k/uL (0-1.0); Monocytes % (A) 5 %; Neutrophils # (A) 9.4 k/uL (1.3-7.7); Neutrophils % (A) 74 %; RBC 4.04 m/uL (3.80-5.40); RDW 16.1 % (11.5-15.5); WBC 12.7 k/uL (3.8-10.6); WBC (Perox) 13.54
[2017-01-10 23:00] LABS: ALT 43 U/L (9-52); AST 21 U/L (14-36); Alkaline Phosphatase 98 U/L (38-126); Amylase 75 U/L (30-110); Anion Gap 9 mmol/L; Blood Urea Nitrogen 10 mg/dL (7-17); Calcium 8.5 mg/dL (8.4-10.2); Carbon Dioxide 23 mmol/L (22-30); Chloride 108 mmol/L (98-107); Glucose 90 mg/dL (74-99); Non-African American GFR(MDRD) >60 (>60 ml/min/1.73 sqM); Potassium 3.5 mmol/L (3.5-5.1); Sodium 140 mmol/L (137-145); Total Bilirubin 0.1 mg/dL (0.2-1.3); Total Protein 6.1 g/dL (6.3-8.2)
--- NOTE | 2017-01-10 23:05 | XR ---
EXAMINATION TYPE: XR KUB DATE OF EXAM: 01/10/2017 COMPARISON: 01/01/2014 HISTORY: Abdominal pain TECHNIQUE: 2 views FINDINGS: Bowel gas pattern is normal. There is no sign of intestinal obstruction or pneumoperitoneum . Fecal pattern is normal. There is no sign of a mass. There are no pathologic calcifications over th e kidneys. There are clips from cholecystectomy. Lung bases are clear. IMPRESSION: Nonacute abdomen. No change.
[2017-01-10 23:53] VITALS: PULSE 75; RESP 16; TEMP 97.5
[2017-01-11 01:48] VITALS: BP 153/80
== END 2017-01-10 23:51 | disposition home or self-care (01) ==
LOC: EC 21:26
DX: K52.9 Noninfective gastroenteritis and colitis, unspecified (principal); E07.9 Disorder of thyroid, unspecified; F17.200 Nicotine dependence, unspecified, uncomplicated; Z98.890 Other specified postprocedural states; Z98.51 Tubal ligation status; Z90.710 Acquired absence of both cervix and uterus; Z90.49 Acquired absence of other specified parts of digestive tract; Z79.899 Other long term (current) drug therapy; Z88.0 Allergy status to penicillin; Z88.1 Allergy status to other antibiotic agents; Z88.6 Allergy status to analgesic agent; Z88.8 Allergy status to other drugs, medicaments and biological substances; Z91.040 Latex allergy status; Z91.048 Other nonmedicinal substance allergy status; Z79.818 Long term (current) use of other agents affecting estrogen receptors and estrogen levels
CPT/HCPCS: 99284 ×2; 96374 ×2; 96375 ×2; 96376 ×2; 36415; 80053; 82150; 83690; 85025; 74000; J2405; J1170

== ENCOUNTER 2017-01-27 07:43 | Day surgery (SDC) | payer OTHER ==
[2017-01-24 09:17] VITALS: BMI 28.3
[~2017-01-27 07:43] MED LIST changes: -LACTATED RINGERS 1,000 ML IV ONE; +LACTATED RINGERS 1,000 ML IV SCH
[2017-01-27] MEDS ORDERED: LIDOCAINE 1% 20 ML VIAL (10MG/ML) FOR IV START INTRADERMA ONE (08:39)
[2017-01-27 08:45] VITALS: RESP 16; TEMP 97.7
--- NOTE | 2017-01-27 09:16 | P.PCN ---
Date of Procedure: 01/27/17 Procedure(s) Performed: Pre-operative diagnosis: 1- Bilateral occipital neuralgea Post Operative Diagnosis 1- Bilateral occipital neuralgea Procedure: 1- Bilateral occipital nerve block ANESTHESIA: Conscious sedation with Versed.2 mg and fentanyl 100 micrograms EBL: Minimal PROCEDURE INDICATION: The patient with neck pain and headache secondary to occipital neuralgea unresponsive to conservative treatments. PROCEDURE DESCRIPTION / TECHNIQUE: The patient was seen and identified in the preoperative area. Risks, benefits, complications, and alternatives were discussed with the patient, the patient agreed to proceed with the procedure and signed the consent. IV was started. Vital signs remained stable throughout the procedure. Patient was taken to the OR and time out was completed. The patient was placed in the sitting position on the procedure table. A pillow was placed under the patients chest to increase the cervical interlaminar space. The cervical area and right occiptial area were prepped with alcohol swab. Critical pause was taken. Vital signs were closely monitored during the procedure. Conscious sedation was used during the procedure to decrease patients anxiety. The right occiptal ridge was palpated and was then accessed with a 25 G needle. Then after negative aspiration, 6 ml of the block solution containing 6 ml of PF Buvicaine 0.75% and Kenalog 20 mg was injected. Needle was withdrawn intact. Then the same procedure was repeated on the left side and related the left occipital nerve block, after negative aspiration 6 mL of the block solution containing ropivacaine 0.75% and 20 mg of Kenalog injected after negative aspiration Patient tolerated procedure well. No acute complications.
[2017-01-27] MEDS ORDERED: IV FLUID CONTINUATION 1,000 ML IV ONE (09:18)
[2017-01-27 09:22] VITALS: PULSE 84
[2017-01-27 09:28] VITALS: BP 147/100
== END 2017-01-27 09:49 | disposition home or self-care (01) ==
LOC: ORPAIN 07:43
PROVIDERS: ATTEND Specialist
DX: M54.81 Occipital neuralgia (principal)
CPT/HCPCS: 64405; 99152; J2250; J3301; J3010

== ENCOUNTER → 2017-02-17 | Outpatient (CLI) | payer OTHER ==
--- NOTE | 2017-02-17 09:56 | MR ---
EXAMINATION TYPE: MR shoulder RT wo con DATE OF EXAM: 02/17/2017 COMPARISON: Right shoulder, clavicle, and humerus x-ray January 30, 2017 HISTORY: rt shoulder pain per order. Fall injury January 30 with pain and difficulty raising arm over head. TECHNIQUE: Multiplanar, multisequence imaging of the right shoulder is performed without contrast. FINDINGS: Rotator Cuff: The supraspinatus and infraspinatus tendons remain intact to humeral head attachment. T here is no suspicious full-thickness or retracted tear. Rotator cuff muscle bulk is preserved. Subsca pularis tendon is intact. Acromioclavicular Joint: There is prominent spurring and joint space loss at acromioclavicular joint but inferior fat plane is maintained. Distal acromion morphology is preserved. Glenohumeral Joint: There is small glenohumeral joint effusion. No significant spurring or joint spac e loss is present. Labrum: The labrum appears grossly intact given limitation of non-arthrogram study. Biceps Tendon: The long head of biceps is in normal location within bicipital groove. Bone marrow signal: No focal abnormal marrow signal is appreciated. Other: No additional significant abnormality is appreciated. IMPRESSION: No rotator cuff or labral tear is seen. Acromioclavicular joint arthropathy otherwise unr emarkable study..
== END | disposition home or self-care (01) ==
LOC: RADMRIMAIN 08:21
PROVIDERS: ATTEND Orthopaedic Surgery
DX: M25.511 Pain in right shoulder (principal)

== ENCOUNTER 2017-03-02 12:32 | Emergency (ER) | payer OTHER ==
[2017-03-02] MEDS ORDERED: ORPHENADRINE 30 MG/ML 2 ML VIAL IM STA (13:03)
[2017-03-02] MEDS ORDERED: diphenhydrAMINE 50 MG/ML 1 ML VIAL IVP STA (13:03)
[2017-03-02] MEDS ORDERED: methylPREDNISolone SOD SUCCI 125 MG/2 ML VIAL IV STA (13:03)
[2017-03-02] MEDS ORDERED: ONDANSETRON 4 MG/2 ML VIAL IVP STA (13:04)
--- NOTE | 2017-03-02 13:18 | ED ---
General Adult HPI - General Chief complaint: Headache Stated complaint: Headache Time Seen by Provider: 03/02/17 12:55 Source: patient, RN notes reviewed Mode of arrival: ambulatory Limitations: no limitations - History of Present Illness Initial comments: 46-year-old female presents to the emergency department with a chief complaint of headache. Patient has a chronic history of migraines. Patient has had this migraine strength today. She states that they do nerve injections to help with her migraine but is not helping. She states she has had no sensitivity to sound. There is been no nausea or vomiting. She states she took Narco she had left over that did nothing for her pain. Patient was concerned due to her continued symptoms so she thought that she should be evaluated.Patient denies any recent fever, chills, shortness of breath, chest pain, back pain, abdominal pain, nausea vomiting, numbness or tingling, dysuria or hematuria, constipation or diarrhea, visual changes, or any other current symptoms. - Related Data Home Medications Medication Instructions Recorded Confirmed Cyclobenzaprine [Flexeril] 5 mg PO DAILY PRN 03/02/17 03/02/17 Phenytoin Sodium Extended 300 mg PO TID 03/02/17 03/02/17 [Dilantin] Allergies Allergy/AdvReac Type Severity Reaction Status Date / Time gabapentin [From Neurontin] Allergy Itching Verified 03/02/17 13:21 latex Allergy Anaphylaxis Verified 03/02/17 13:21 naproxen [From Naprosyn] Allergy Anaphylaxis Verified 03/02/17 13:21 Penicillins Allergy Anaphylaxis Verified 03/02/17 13:21 quetiapine fumarate Allergy Itching, Verified 03/02/17 13:21 [From Seroquel] leg cramps rofecoxib [From Vioxx] Allergy Itching, Verified 03/02/17 13:21 leg cramps terfenadine [From Seldane] Allergy Rash/Hives Verified 03/02/17 13:21 tramadol Allergy Nausea & Verified 03/02/17 13:21 Vomiting/LEG CRAMPS/HEART FLUTTERS calcium carbonate [From DHEA] AdvReac Chest Pain Verified 03/02/17 13:21 calcium phosphate,dibasic AdvReac Chest Pain Verified 03/02/17 13:21 [From DHEA] clindamycin AdvReac muscle Verified 03/02/17 13:21 cramps dextromethorphan HBr AdvReac face/neck Verified 03/02/17 13:21 [From NyQuil] flushing diazepam [From Valium] AdvReac Nausea & Verified 03/02/17 13:21 Vomiting divalproex sodium AdvReac Nausea & Verified 03/02/17 13:21 [From Depakote] Vomiting doxylamine [From NyQuil] AdvReac face "beet Verified 03/02/17 13:21 red", elevated temp. ibuprofen [From Motrin] AdvReac abdominal Verified 03/02/17 13:21 & muscle cramps indomethacin [From Indocin] AdvReac Abdominal Verified 03/02/17 13:21 Pain,N/V ketorolac tromethamine AdvReac "built up Verified 03/02/17 13:21 [From Toradol] in system", had to be given something to reverse metoclopramide HCl AdvReac muscle Verified 03/02/17 13:21 [From Reglan] cramps prasterone (DHEA) [From DHEA] AdvReac Chest Pain Verified 03/02/17 13:21 propranolol AdvReac Chest Pain Verified 03/02/17 13:21 pseudoephedrine HCl AdvReac face "beet Verified 03/02/17 13:21 [From NyQuil] red", elevated temp. sumatriptan [From Imitrex] AdvReac migrane Verified 03/02/17 13:21 sumatriptan succinate AdvReac migrane Verified 03/02/17 13:21 [From Imitrex] topiramate [From Topamax] AdvReac "built up Verified 03/02/17 13:21 in system", had to be given something to reverse trazodone AdvReac "built up Verified 03/02/17 13:21 in system", had to be given something to reverse zolpidem tartrate AdvReac "Became Verified 03/02/17 13:21 [From Ambien] violent with no memory" artificial sweetener AdvReac SEVERE Uncoded 03/02/17 12:41 MIGRAINE HEADACHE Review of Systems ROS Statement: Those systems with pertinent positive or pertinent negative responses have been documented in the HPI. ROS Other: All systems not noted in ROS Statement are negative. Past Medical History Past Medical History: Hyperlipidemia, Hypertension, Seizure Disorder, Thyroid Disorder Additional Past Medical History / Comment(s): Migraines, viral meningitis x3 as a child, 1993, 2000, chronic back pain, nerve blocks 08/2016 and 12/2016. History of Any Multi-Drug Resistant Organisms: None Reported Past Surgical History: Appendectomy, Section, Cholecystectomy, Hernia Repair, Hysterectomy, Orthopedic Surgery, Tonsillectomy, Tubal Ligation Additional Past Surgical History / Comment(s): Hiatal Hernia, umbilical hernia repair, left rotator cuff repair, bilateral knee scopes, pain clinic procedures. Past Anesthesia/Blood Transfusion Reactions: No Reported Reaction Additional Past Anesthesia/Blood Transfusion Reaction / Comment(s): Claustrophobic Past Psychological History: Anxiety, Bipolar, Panic Disorder Smoking Status: Current every day smoker Past Alcohol Use History: Occasional, Rare Past Drug Use History: None Reported - Past Family History Mother Family Medical History: Cancer, Dementia, Diabetes Mellitus, GERD/Reflux, Hyperlipidemia, Hypertension, Thyroid Disorder Additional Family Medical History / Comment(s): Quad CABG, cardiac stents, toes ampuated. Father History Unknown: Yes Family Medical History: No Reported History General Exam - General Exam Comments Initial Comments: General: The patient is awake and alert, in no distress, and does not appear acutely ill. Eye: Pupils are equal, round. Ears, nose, mouth and throat: There are moist mucous membranes. Neck: The neck is supple, there is no tenderness. Cardiovascular: There is a regular rate and rhythm. No murmur, rub or gallop is appreciated. Respiratory: Lungs are clear to auscultation, respirations are non-labored, breath sounds are equal. No wheezes, stridor, rales, or rhonchi. Gastrointestinal: Soft, non-distended, non-tender abdomen without masses or organomegaly noted. There is no rebound or guarding present. No CVA tenderness. Bowel sounds are unremarkable. Back: There is no tenderness to palpation in the midline. There is no obvious deformity. No rashes noted. Musculoskeletal: Normal ROM, no tenderness, There is no pedal edema. There is no calf tenderness or swelling. Sensation intact. Pulses equal bilaterally 2+. Neurological: CN II-XII intact, There are no obvious motor or sensory deficits. Coordination appears grossly intact. Speech is normal. Skin: Skin is warm and dry and no rashes or lesions are noted. Psychiatric: Cooperative, appropriate mood & affect, normal judgment. Limitations: no limitations Course Vital Signs 03/02/17 03/02/17 12:38 14:44 Temperature 97.6 F Pulse Rate 117 H 88 Respiratory 18 16 Rate Blood Pressure 160/97 144/105 O2 Sat by Pulse 100 98 Oximetry - Reevaluation(s) Reevaluation #1: 03/02/17 15:22 Patient is reevaluated and is having improvement to her symptoms. Medical Decision Making - Medical Decision Making 46-year-old female presents for flareup of her chronic migraine headaches. Patient states her headaches exactly like her normal headaches. This time she is feeling better with medications. This time we discussed continued follow-up with neurologist return parameters all questions. Patient stated that she understood the plan. She'll be discharged Disposition Clinical Impression: Migraine Disposition: HOME SELF-CARE Condition: Stable Instructions: Acute Headache (ED) Additional Instructions: Please use medication as discussed. Please follow up with family doctor if symptoms have not improved over the next two days. Please return to the emergency room if your symptoms increase or worsen or for any other concerns. Referrals: Ayush Mueller MD [Primary Care Provider] - 1-2 days Time of Disposition: 15:22
[2017-03-02] MEDS ORDERED: methylPREDNISolone SOD SUCCI 125 MG/2 ML VIAL IM ONE (13:38)
[2017-03-02] MEDS ORDERED: diphenhydrAMINE 50 MG/ML 1 ML VIAL IM STA (13:38)
[2017-03-02] MEDS ORDERED: ONDANSETRON 4 MG/2 ML VIAL IM STA (13:39)
[2017-03-02] MEDS ORDERED: HYDROmorphone 1 MG/ML 1 ML SYRINGE IM STA (14:29)
[2017-03-02] MEDS ORDERED: HYDROmorphone 2 MG/ML 1 ML SYRINGE IM STA (14:33)
[2017-03-02] MEDS ORDERED: cloNIDine HCL 0.1 MG TAB PO STA (15:26)
--- NOTE | 2017-03-02 15:30 | ED ---
Medical Decision Making - Medical Decision Making Upon discharge the patient was found to be hypertensive. She states she did not take her blood pressure medications that she has been prescribed. This and we did give her Catapres we discussed that she needs to follow-up with her doctor for this. Patient is a found to have an elevated blood pressure on this ER visit. At this time patient is informed to follow-up with his family care doctor for continued monitoring. Disposition Clinical Impression: Migraine, Hypertension Disposition: HOME SELF-CARE Condition: Stable Instructions: Acute Headache (ED) Additional Instructions: Please use medication as discussed. Please follow up with family doctor if symptoms have not improved over the next two days. Please return to the emergency room if your symptoms increase or worsen or for any other concerns. Referrals: Ayush Mueller MD [Primary Care Provider] - 1-2 days Time of Disposition: 15:30
[2017-03-02 16:03] VITALS: BP 144/107; PULSE 98; RESP 17; TEMP 97.3
== END 2017-03-02 16:12 | disposition home or self-care (01) ==
LOC: EC 12:32
DX: G43.909 Migraine, unspecified, not intractable, without status migrainosus (principal); I10 Essential (primary) hypertension; F17.200 Nicotine dependence, unspecified, uncomplicated; Z86.69 Personal history of other diseases of the nervous system and sense organs; Z79.899 Other long term (current) drug therapy; Z88.8 Allergy status to other drugs, medicaments and biological substances; Z91.040 Latex allergy status; Z88.6 Allergy status to analgesic agent; Z88.0 Allergy status to penicillin; Z88.1 Allergy status to other antibiotic agents; Z91.048 Other nonmedicinal substance allergy status
CPT/HCPCS: 99283; 96372 ×5; J1170; J1200; J2360; J2930; J2405

== ENCOUNTER 2017-04-02 16:08 | Observation (INO) | payer OTHER ==
[2017-04-02] MEDS ORDERED: SODIUM CHLORIDE 0.9% 1,000 ML IV ONE (18:35)
[2017-04-02] MEDS ORDERED: DEXAMETHASONE SOD PHOSPHATE 10 MG/ML 1 ML VIAL IV STA (18:35)
[2017-04-02] MEDS ORDERED: diphenhydrAMINE 50 MG/ML 1 ML VIAL IVP STA (18:35)
[2017-04-02] MEDS ORDERED: PROCHLORPERAZINE 5 MG TAB PO STA (18:37)
[2017-04-02] MEDS ORDERED: LORazepam 2 MG/ML INJ IV STA (18:38)
--- NOTE | 2017-04-02 18:42 | ED ---
General Adult HPI - General Chief complaint: Headache Stated complaint: Headache Time Seen by Provider: 04/02/17 18:25 Source: patient Mode of arrival: ambulatory Limitations: no limitations - History of Present Illness Initial comments: Patient is a 47-year-old female with an extensive history of migraine headaches numerous medical ALLERGIES who presents with chief complaint of a migraine headache for 4 days. The patient states that this is a typical migraine headache for her. She states that she has pain behind her right ear. She has tried her medications at home including other homeopathic remedies which have not worked. Patient states that her headache is aggravated by light and sound. There are no alleviating factors. Timing is constant. Patient states that she is forgetting peoples names and that she is concerned about it. - Related Data Home Medications Medication Instructions Recorded Confirmed Zonisamide [Zonegran] 200 mg PO Q12HR 03/12/17 04/02/17 Atorvastatin [Lipitor] 40 mg PO HS 04/02/17 04/02/17 Butalb/APAP/Caff 50-325-40Mg 1 tab PO DAILY PRN 04/02/17 04/02/17 [Fioricet 50-325-40] Allergies Allergy/AdvReac Type Severity Reaction Status Date / Time gabapentin [From Neurontin] Allergy Itching Verified 04/02/17 16:49 latex Allergy Anaphylaxis Verified 04/02/17 16:49 naproxen [From Naprosyn] Allergy Anaphylaxis Verified 04/02/17 16:49 Penicillins Allergy Anaphylaxis Verified 04/02/17 16:49 quetiapine fumarate Allergy Itching, Verified 04/02/17 16:49 [From Seroquel] leg cramps rofecoxib [From Vioxx] Allergy Itching, Verified 04/02/17 16:49 leg cramps terfenadine [From Seldane] Allergy Rash/Hives Verified 04/02/17 16:49 tramadol Allergy Nausea & Verified 04/02/17 16:49 Vomiting/LEG CRAMPS/HEART FLUTTERS calcium carbonate [From DHEA] AdvReac Chest Pain Verified 04/02/17 16:49 calcium phosphate,dibasic AdvReac Chest Pain Verified 04/02/17 16:49 [From DHEA] clindamycin AdvReac muscle Verified 04/02/17 16:49 cramps clonidine AdvReac Unknown Verified 04/02/17 16:49 dextromethorphan HBr AdvReac face/neck Verified 04/02/17 16:49 [From NyQuil] flushing diazepam [From Valium] AdvReac Nausea & Verified 04/02/17 16:49 Vomiting divalproex sodium AdvReac Nausea & Verified 04/02/17 16:49 [From Depakote] Vomiting doxylamine [From NyQuil] AdvReac face "beet Verified 04/02/17 16:49 red", elevated temp. ibuprofen [From Motrin] AdvReac abdominal Verified 04/02/17 16:49 & muscle cramps indomethacin [From Indocin] AdvReac Abdominal Verified 04/02/17 16:49 Pain,N/V ketorolac tromethamine AdvReac "built up Verified 04/02/17 16:49 [From Toradol] in system", had to be given something to reverse metoclopramide HCl AdvReac muscle Verified 04/02/17 16:49 [From Reglan] cramps prasterone (DHEA) [From DHEA] AdvReac Chest Pain Verified 04/02/17 16:49 propranolol AdvReac Chest Pain Verified 04/02/17 16:49 pseudoephedrine HCl AdvReac face "beet Verified 04/02/17 16:49 [From NyQuil] red", elevated temp. sumatriptan [From Imitrex] AdvReac migrane Verified 04/02/17 16:49 sumatriptan succinate AdvReac migrane Verified 04/02/17 16:49 [From Imitrex] topiramate [From Topamax] AdvReac "built up Verified 04/02/17 16:49 in system", had to be given something to reverse trazodone AdvReac "built up Verified 04/02/17 16:49 in system", had to be given something to reverse zolpidem tartrate AdvReac "Became Verified 04/02/17 16:49 [From Ambien] violent with no memory" artificial sweetener AdvReac SEVERE Uncoded 04/02/17 16:49 MIGRAINE HEADACHE Review of Systems ROS Statement: Those systems with pertinent positive or pertinent negative responses have been documented in the HPI. ROS Other: All systems not noted in ROS Statement are negative. Constitutional: Denies: fever Eyes: Denies: vision change ENT: Denies: throat pain Respiratory: Denies: cough Cardiovascular: Denies: chest pain Gastrointestinal: Denies: abdominal pain, nausea, vomiting Genitourinary: Denies: dysuria Musculoskeletal: Denies: back pain Skin: Denies: rash Neurological: Reports: headache Past Medical History Past Medical History: Hyperlipidemia, Hypertension, Seizure Disorder, Thyroid Disorder Additional Past Medical History / Comment(s): Migraines, viral meningitis x3 as a child, 1993, 2000, chronic back pain, nerve blocks 08/2016 and 12/2016. 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 History of Any Multi-Drug Resistant Organisms: None Reported Past Surgical History: Appendectomy, Section, Cholecystectomy, Hernia Repair, Hysterectomy, Orthopedic Surgery, Tonsillectomy, Tubal Ligation Additional Past Surgical History / Comment(s): Hiatal Hernia, umbilical hernia repair, left rotator cuff repair, bilateral knee scopes, pain clinic procedures- occipital nerve block on 01/05/2017. Past Anesthesia/Blood Transfusion Reactions: No Reported Reaction Additional Past Anesthesia/Blood Transfusion Reaction / Comment(s): Claustrophobic Past Psychological History: Anxiety, Bipolar, Panic Disorder Smoking Status: Current every day smoker Past Alcohol Use History: Rare Past Drug Use History: None Reported - Past Family History Mother Family Medical History: Cancer, Dementia, Diabetes Mellitus, GERD/Reflux, Hyperlipidemia, Hypertension, Thyroid Disorder Additional Family Medical History / Comment(s): Quad CABG, cardiac stents, toes ampuated. Father History Unknown: Yes Family Medical History: No Reported History General Exam Limitations: no limitations General appearance: alert, in no apparent distress Head exam: Present: atraumatic, normocephalic Eye exam: Present: normal appearance ENT exam: Present: normal exam Neck exam: Present: normal inspection Respiratory exam: Present: normal lung sounds bilaterally Cardiovascular Exam: Present: regular rate, normal rhythm GI/Abdominal exam: Present: soft. Absent: distended, tenderness Rectal exam: Present: deferred Extremities exam: Present: normal inspection Back exam: Present: normal inspection Neurological exam: Present: alert, oriented X3, CN II-XII intact, normal gait, other (Neurologic examination is within normal limits. Romberg negative, cerebellar testing is negative.) Psychiatric exam: Present: normal affect, normal mood Skin exam: Present: warm, dry, intact Course Vital Signs 04/02/17 04/02/17 04/02/17 16:46 20:24 21:38 Temperature 97.6 F 99.9 F H Pulse Rate 111 H 112 H 107 H Respiratory 18 18 18 Rate Blood Pressure 145/98 165/102 150/100 O2 Sat by Pulse 98 97 95 Oximetry Medical Decision Making - Medical Decision Making Patient presents with a chief complaint of a typical migraine. Neurologic exam is within normal limits, she is able to amulet well without assistance. Patient was given a headache cocktail that includes Compazine, Ativan, Decadron , Benadryl as the patient has numerous medical ALLERGIES. Review of patient's chart shows that she is here often for migraine headaches. On initial evaluation vital signs are stable, patient appears to be in no distress 10:47 PM Patient was given medications for headache however this was initially unsuccessful likely secondary to patient having adverse reactions to many other drugs are not accepting the proposed treatment. Patient states that normally when she has a headache she is given Dilaudid and Benadryl. Patient was given 0.5 mg of Dilaudid and states that her headache is now 7. At this time the patient is uncomfortable going home. I discussed that will not be getting any more narcotic pain medications. The patient and I discussed further treatment options, and the decision was made to place the patient in observation for intractable headache. The patient's neurologic exam remained unchanged. Disposition Clinical Impression: Intractable headache Disposition: ADMITTED IP TO THIS [facility] Condition: Good Instructions: Acute Headache (ED) Referrals: José Reece MD [Primary Care Provider] - 1-2 days Decision to Admit Reason: Admit from EC - Out of Hospital Transfer - Req. Specs Out of Hospital Transfer - Requested Specifics: Other Non-Acute
[2017-04-02] MEDS ORDERED: ONDANSETRON 4 MG/2 ML VIAL IVP STA (20:19)
[2017-04-02] MEDS ORDERED: HYDROmorphone 1 MG/ML 1 ML SYRINGE IVP STA (21:24)
[2017-04-02] MEDS ORDERED: NALOXONE 0.4 MG/ML 1 ML VIAL IV PRN (22:49)
[2017-04-02 23:43] VITALS: BMI 28.7
[2017-04-03] MEDS: ACETAMINOPHEN TAB 325 MG TAB PO PRN ×2 (00:03→04:34)
[2017-04-03] MEDS: HYDROcodone/APAP 5-325MG 1 EACH TAB PO PRN ×4 (00:04→12:32)
[2017-04-03] MEDS: ONDANSETRON 4 MG/2 ML VIAL IVP PRN ×2 (04:33→12:37)
[2017-04-03] MEDS ORDERED: SODIUM CHLORIDE 0.9% 1,000 ML IV SCH (10:15)
[2017-04-03 12:21] VITALS: TEMP 97.5
[2017-04-03 13:03] LABS: Basophils % (A) 0 %; Eosinophils % (A) 0 %; HCT 41.4 % (34.0-46.0); HGB 13.9 gm/dL (11.4-16.0); Lymphocytes # (A) 1.3 k/uL (1.0-4.8); Lymphocytes % (A) 20 %; MCH 34.4 pg (25.0-35.0); MCHC 33.5 g/dL (31.0-37.0); MCV 102.8 fL (80.0-100.0); Macrocytosis Slight; Mean Platelet Volume 7.9; Monocytes # (A) 0.4 k/uL (0-1.0); Monocytes % (A) 6 %; Neutrophils # (A) 4.7 k/uL (1.3-7.7); Neutrophils % (A) 70 %; Platelet Count 293 k/uL (150-450); RBC 4.03 m/uL (3.80-5.40); RDW 14.1 % (11.5-15.5); WBC 6.7 k/uL (3.8-10.6)
[2017-04-03 13:16] LABS: Anion Gap 11 mmol/L; Blood Urea Nitrogen 9 mg/dL (7-17); Calcium 9.3 mg/dL (8.4-10.2); Carbon Dioxide 19 mmol/L (22-30); Chloride 112 mmol/L (98-107); Glucose 116 mg/dL (74-99); Sodium 142 mmol/L (137-145)
[2017-04-03 13:23] VITALS: BP 146/87; PULSE 109; RESP 19
--- NOTE | 2017-04-03 17:26 | P.HPIM ---
History of Present Illness Patient is a 47-year-old female with an extensive history of migraine headaches numerous medical ALLERGIES who presents with chief complaint of a migraine headache for 4 days. The patient states that this is a typical migraine headache for her. She states that she has pain behind her right ear. She has tried her medications at home including other homeopathic remedies which have not worked. Patient states that her headache is aggravated by light and sound. There are no alleviating factors. Patient's headache is mostly in the posterior cervical area with some tenderness in the posterior cervical area sharp 9 x 10 in nature although patient is sitting comfortably when I evaluated the patient when I entered the room. After obtaining history , informed the patient that she'll be started on prednisone and neurology consultation will be obtain for possibly of migraine versus cervical cephalalgia, patient states she has multiple ALLERGIES and she is hoping for opiates like Dilaudid for pain which I declined to give her as these have not shown to be beneficial in migraine. I believe patient has not Kardex seeking behavior. Once every 10 to give her opiates patient wanted to leave AMA. Patient doesn't have any photophobia no nuchal rigidity no fever Review of Systems REVIEW OF SYSTEMS: CONSTITUTIONAL: No fever, no malaise, no fatigue. HEENT: No recent visual problems or hearing problems. Denied any sore throat. CARDIOVASCULAR: No chest pain, orthopnea, PND, no palpitations, no syncope. PULMONARY: No shortness of breath, no cough, no hemoptysis. GASTROINTESTINAL: No diarrhea, no nausea, no vomiting, no abdominal pain. Normoactive bowel sounds. NEUROLOGICAL: no weakness, no numbness. HEMATOLOGICAL: Denies any bleeding or petechiae. GENITOURINARY: Denies any burning micturition, frequency, or urgency. MUSCULOSKELETAL/RHEUMATOLOGICAL: Denies any joint pain, swelling, or any muscle pain. ENDOCRINE: Denies any polyuria or polydipsia. The rest of the 14-point review of systems is negative. Past Medical History Past Medical History: Hyperlipidemia, Hypertension, Seizure Disorder, Thyroid Disorder Additional Past Medical History / Comment(s): Migraines, viral meningitis x3 as a child, 1995, 2000, chronic back pain, nerve blocks 08/2016 and 12/2016. 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 History of Any Multi-Drug Resistant Organisms: None Reported Past Surgical History: Appendectomy, Section, Cholecystectomy, Hernia Repair, Hysterectomy, Orthopedic Surgery, Tonsillectomy, Tubal Ligation Additional Past Surgical History / Comment(s): Hiatal Hernia, umbilical hernia repair, left rotator cuff repair, bilateral knee scopes, pain clinic procedures- occipital nerve block on 01/05/2017. Past Anesthesia/Blood Transfusion Reactions: No Reported Reaction Additional Past Anesthesia/Blood Transfusion Reaction / Comment(s): Claustrophobic Past Psychological History: Anxiety, Bipolar, Panic Disorder Additional Psychological History / Comment(s): last manic episode 6 months ago. Smoking Status: Current every day smoker Past Alcohol Use History: Rare Additional Past Alcohol Use History / Comment(s): SMOKING SINCE 1981; smokes about 2 cigarettes per day per pt Past Drug Use History: None Reported - Past Family History Mother Family Medical History: Cancer, Dementia, Diabetes Mellitus, GERD/Reflux, Hyperlipidemia, Hypertension, Thyroid Disorder Additional Family Medical History / Comment(s): Quad CABG, cardiac stents, toes ampuated. Father History Unknown: Yes Family Medical History: No Reported History Medications and Allergies Home Medications Medication Instructions Recorded Confirmed Type Zonisamide [Zonegran] 200 mg PO Q12HR 03/12/17 04/02/17 History Atorvastatin [Lipitor] 40 mg PO HS 04/02/17 04/02/17 History Butalb/APAP/Caff 50-325-40Mg 1 tab PO DAILY PRN 04/02/17 04/02/17 History [Fioricet 50-325-40] Allergies Allergy/AdvReac Type Severity Reaction Status Date / Time gabapentin [From Neurontin] Allergy Itching Verified 04/02/17 16:49 latex Allergy Anaphylaxis Verified 04/02/17 16:49 naproxen [From Naprosyn] Allergy Anaphylaxis Verified 04/02/17 16:49 Penicillins Allergy Anaphylaxis Verified 04/02/17 16:49 quetiapine fumarate Allergy Itching, Verified 04/02/17 16:49 [From Seroquel] leg cramps rofecoxib [From Vioxx] Allergy Itching, Verified 04/02/17 16:49 leg cramps terfenadine [From Seldane] Allergy Rash/Hives Verified 04/02/17 16:49 tramadol Allergy Nausea & Verified 04/02/17 16:49 Vomiting/LEG CRAMPS/HEART FLUTTERS calcium carbonate [From DHEA] AdvReac Chest Pain Verified 04/02/17 16:49 calcium phosphate,dibasic AdvReac Chest Pain Verified 04/02/17 16:49 [From DHEA] clindamycin AdvReac muscle Verified 04/02/17 16:49 cramps clonidine AdvReac fast Verified 04/02/17 23:53 heartbeat, migraine dextromethorphan HBr AdvReac face/neck Verified 04/02/17 16:49 [From NyQuil] flushing diazepam [From Valium] AdvReac Nausea & Verified 04/02/17 16:49 Vomiting divalproex sodium AdvReac Nausea & Verified 04/02/17 16:49 [From Depakote] Vomiting doxylamine [From NyQuil] AdvReac face "beet Verified 04/02/17 16:49 red", elevated temp. ibuprofen [From Motrin] AdvReac abdominal Verified 04/02/17 16:49 & muscle cramps indomethacin [From Indocin] AdvReac Abdominal Verified 04/02/17 16:49 Pain,N/V ketorolac tromethamine AdvReac "built up Verified 04/02/17 16:49 [From Toradol] in system", had to be given something to reverse metoclopramide HCl AdvReac muscle Verified 04/02/17 16:49 [From Reglan] cramps prasterone (DHEA) [From DHEA] AdvReac Chest Pain Verified 04/02/17 16:49 prochlorperazine AdvReac leg Verified 04/02/17 23:53 [From Compazine] cramping propranolol AdvReac Chest Pain Verified 04/02/17 16:49 pseudoephedrine HCl AdvReac face "beet Verified 04/02/17 16:49 [From NyQuil] red", elevated temp. quetiapine [From Seroquel] AdvReac leg Verified 04/02/17 23:53 cramping sumatriptan [From Imitrex] AdvReac migrane Verified 04/02/17 16:49 sumatriptan succinate AdvReac migrane Verified 04/02/17 16:49 [From Imitrex] topiramate [From Topamax] AdvReac "built up Verified 04/02/17 16:49 in system", had to be given something to reverse trazodone AdvReac "built up Verified 04/02/17 16:49 in system", had to be given something to reverse zolpidem tartrate AdvReac "Became Verified 04/02/17 16:49 [From Ambien] violent with no memory" artificial sweetener AdvReac SEVERE Uncoded 04/02/17 16:49 MIGRAINE HEADACHE Physical Exam Vitals: Vital Signs Temp Pulse Pulse Resp BP BP Pulse Ox 04/03/17 13:23 109 H 19 146/87 98 04/03/17 12:20 97.5 F L 90 20 141/101 98 04/03/17 08:00 98.0 F 79 20 112/73 96 04/02/17 23:29 98.1 F 100 20 149/105 93 L 04/02/17 23:21 98.4 F 105 H 18 145/98 95 04/02/17 21:38 107 H 18 150/100 95 04/02/17 20:24 99.9 F H 112 H 18 165/102 97 Intake and Output 04/03/17 04/03/17 04/03/17 06:59 14:59 22:59 Intake Total 200 Balance 200 Intake: Oral 200 Other: # Voids 1 3 Weight 73.482 kg PHYSICAL EXAMINATION: GENERAL: The patient is alert and oriented x3, not in any acute distress. Well developed, well nourished. HEENT: Pupils are round and equally reacting to light. EOMI. No scleral icterus. No conjunctival pallor. Normocephalic, atraumatic. No pharyngeal erythema. No thyromegaly. CARDIOVASCULAR: S1 and S2 present. No murmurs, rubs, or gallops. PULMONARY: Chest is clear to auscultation, no wheezing or crackles. ABDOMEN: Soft, nontender, nondistended, normoactive bowel sounds. No palpable organomegaly. MUSCULOSKELETAL: No joint swelling or deformity. EXTREMITIES: No cyanosis, clubbing, or pedal edema. NEUROLOGICAL: Gross neurological examination did not reveal any focal deficits. SKIN: No rashes. Results CBC & Chem 7: 04/03/17 12:45 04/03/17 12:45 Labs: Abnormal Lab Results - Last 24 Hours (Table) 12/28/17 12/28/17 Range/Units 12:45 12:45 MCV 102.8 H (80.0-100.0) fL Chloride 112 H (98-107) mmol/L Carbon Dioxide 19 L (22-30) mmol/L Glucose 116 H (74-99) mg/dL Thrombosis Risk Factor Assmnt - Choose All That Apply Any of the Below Risk Factors Present?: Yes Each Factor Represents 1 point: Obesity (BMI >25) Thrombosis Risk Factor Assessment Total Risk Factor Score: 1 Thrombosis Risk Factor Assessment Level: Low Risk Assessment and Plan Plan: -Headache: May be migraine or cervical cephalalgia that the differential is malingering for opiates and -Hyperlipidemia -Seizure disorder -Hypothyroidism -Hypertension For above-mentioned chronic medical problems patient was resumed on her home medications
--- NOTE | 2017-04-03 17:28 | P.DS ---
Providers Date of admission: 04/02/17 22:50 Attending physician: Sebastian Lyons Primary care physician: José Reece [facility] Course: Patient left AMA Patient Condition at Discharge: Good Plan - Discharge Summary New Discharge Prescriptions: No Action Zonisamide [Zonegran] 200 mg PO Q12HR Butalb/APAP/Caff 50-325-40Mg [Fioricet 50-325-40] 1 tab PO DAILY PRN PRN Reason: Migraine Headache Atorvastatin [Lipitor] 40 mg PO HS Discharge Medication List Zonisamide [Zonegran] 200 mg PO Q12HR 03/12/17 [History] Atorvastatin [Lipitor] 40 mg PO HS 04/02/17 [History] Butalb/APAP/Caff 50-325-40Mg [Fioricet 50-325-40] 1 tab PO DAILY PRN 04/02/17 [ History] Follow up Appointment(s)/Referral(s): José Reece MD [Primary Care Provider] - 1-2 days Patient Instructions/Handouts: Acute Headache (ED) Discharge Disposition: Left Against Medical Advice
[2017-04-03] MEDS ORDERED: predniSONE 20 MG TAB PO SCH (21:00)
[2017-04-03] MEDS ORDERED: ZONISAMIDE 100 MG CAP PO SCH (21:00)
== END 2017-04-03 16:15 | disposition left against medical advice (07) ==
LOC: EC 16:08 → 6PED 22:50
PROVIDERS: ADMIT Internal Medicine; ATTEND Internal Medicine
DX: G43.809 Other migraine, not intractable, without status migrainosus (principal); E03.9 Hypothyroidism, unspecified; E78.5 Hyperlipidemia, unspecified; I10 Essential (primary) hypertension; M54.9 Dorsalgia, unspecified; G89.29 Other chronic pain; F17.200 Nicotine dependence, unspecified, uncomplicated; G40.909 Epilepsy, unspecified, not intractable, without status epilepticus; Z79.899 Other long term (current) drug therapy; Z88.0 Allergy status to penicillin; Z88.8 Allergy status to other drugs, medicaments and biological substances; Z88.6 Allergy status to analgesic agent; Z91.040 Latex allergy status; Z98.890 Other specified postprocedural states; E66.9 Obesity, unspecified; Z82.49 Family history of ischemic heart disease and other diseases of the circulatory system; Z68.28 Body mass index [BMI] 28.0-28.9, adult
CPT/HCPCS: 96376; 96361; 96374; 96375; 99284; 80048; 85025; G0378 ×2; J2060; J1200; J1100; J2405 ×2; J1170

== ENCOUNTER 2017-04-28 14:53 | Observation (INO) | payer OTHER ==
[2017-04-28] MEDS ORDERED: SODIUM CHLORIDE 0.9% 2,000 ML IV STA (15:22)
[2017-04-28] MEDS ORDERED: SODIUM CHLORIDE 0.9% 1,000 ML IV STA (15:22)
[2017-04-28] MEDS ORDERED: FAMOTIDINE 20 MG/2 ML VIAL IV STA (15:24)
--- NOTE | 2017-04-28 15:26 | ED ---
General Adult HPI - General Chief complaint: Recheck/Abnormal Lab/Rx Stated complaint: Abdominal pain Time Seen by Provider: 04/28/17 15:00 Source: patient, EMS, RN notes reviewed Mode of arrival: EMS - History of Present Illness Initial comments: This is a 47-year-old female was sent here by ambulance from her doctor's office after having 1718 days of nausea vomiting after eating. She has lightheadedness dizziness feels lethargic fatigued sleepy all the time. She does states she's had in July weight loss last 5 days. She's not eating well. She has have a prior history of colitis and diverticulosis. Also history of migraine headaches and depression. She has any overt fevers chills or sweats. She has had a cholecystectomy in the past. - Related Data Home Medications Medication Instructions Recorded Confirmed Zonisamide [Zonegran] 200 mg PO Q12HR 03/12/17 04/28/17 Atorvastatin [Lipitor] 40 mg PO HS 04/02/17 04/28/17 Butalb/APAP/Caff 50-325-40Mg 1 tab PO DAILY PRN 04/02/17 04/28/17 [Fioricet 50-325-40] Allergies Allergy/AdvReac Type Severity Reaction Status Date / Time gabapentin [From Neurontin] Allergy Itching Verified 04/28/17 15:24 latex Allergy Anaphylaxis Verified 04/28/17 15:24 naproxen [From Naprosyn] Allergy Anaphylaxis Verified 04/28/17 15:24 Penicillins Allergy Anaphylaxis Verified 04/28/17 15:24 quetiapine fumarate Allergy Itching, Verified 04/28/17 15:24 [From Seroquel] leg cramps rofecoxib [From Vioxx] Allergy Itching, Verified 04/28/17 15:24 leg cramps terfenadine [From Seldane] Allergy Rash/Hives Verified 04/28/17 15:24 tramadol Allergy Nausea & Verified 04/28/17 15:24 Vomiting/LEG CRAMPS/HEART FLUTTERS calcium carbonate [From DHEA] AdvReac Chest Pain Verified 04/28/17 15:24 calcium phosphate,dibasic AdvReac Chest Pain Verified 04/28/17 15:24 [From DHEA] clindamycin AdvReac muscle Verified 04/28/17 15:24 cramps clonidine AdvReac fast Verified 04/28/17 15:24 heartbeat, migraine dextromethorphan HBr AdvReac face/neck Verified 04/28/17 15:24 [From NyQuil] flushing diazepam [From Valium] AdvReac Nausea & Verified 04/28/17 15:24 Vomiting divalproex sodium AdvReac Nausea & Verified 04/28/17 15:24 [From Depakote] Vomiting doxylamine [From NyQuil] AdvReac face "beet Verified 04/28/17 15:24 red", elevated temp. ibuprofen [From Motrin] AdvReac abdominal Verified 04/28/17 15:24 & muscle cramps indomethacin [From Indocin] AdvReac Abdominal Verified 04/28/17 15:24 Pain,N/V ketorolac tromethamine AdvReac "built up Verified 04/28/17 15:24 [From Toradol] in system", had to be given something to reverse metoclopramide HCl AdvReac muscle Verified 04/28/17 15:24 [From Reglan] cramps prasterone (DHEA) [From DHEA] AdvReac Chest Pain Verified 04/28/17 15:24 prochlorperazine AdvReac leg Verified 04/28/17 15:24 [From Compazine] cramping propranolol AdvReac Chest Pain Verified 04/28/17 15:24 pseudoephedrine HCl AdvReac face "beet Verified 04/28/17 15:24 [From NyQuil] red", elevated temp. quetiapine [From Seroquel] AdvReac leg Verified 04/28/17 15:24 cramping sumatriptan [From Imitrex] AdvReac migrane Verified 04/28/17 15:24 sumatriptan succinate AdvReac migrane Verified 04/28/17 15:24 [From Imitrex] topiramate [From Topamax] AdvReac "built up Verified 04/28/17 15:24 in system", had to be given something to reverse trazodone AdvReac "built up Verified 04/28/17 15:24 in system", had to be given something to reverse zolpidem tartrate AdvReac "Became Verified 04/28/17 15:24 [From Ambien] violent with no memory" artificial sweetener AdvReac SEVERE Uncoded 04/02/17 16:49 MIGRAINE HEADACHE Review of Systems ROS Statement: Those systems with pertinent positive or pertinent negative responses have been documented in the HPI. ROS Other: All systems not noted in ROS Statement are negative. Past Medical History Past Medical History: Hyperlipidemia, Hypertension, Seizure Disorder, Thyroid Disorder Additional Past Medical History / Comment(s): Migraines, viral meningitis x3 as a child, 1995, 2000, chronic back pain, nerve blocks 08/2016 and 12/2016. 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 History of Any Multi-Drug Resistant Organisms: None Reported Past Surgical History: Appendectomy, Section, Cholecystectomy, Hernia Repair, Hysterectomy, Orthopedic Surgery, Tonsillectomy, Tubal Ligation Additional Past Surgical History / Comment(s): Hiatal Hernia, umbilical hernia repair, left rotator cuff repair, bilateral knee scopes, pain clinic procedures- occipital nerve block on 01/05/2017. Past Anesthesia/Blood Transfusion Reactions: No Reported Reaction Additional Past Anesthesia/Blood Transfusion Reaction / Comment(s): Claustrophobic Past Psychological History: Anxiety, Bipolar, Panic Disorder Smoking Status: Current every day smoker Past Alcohol Use History: Rare Past Drug Use History: None Reported - Past Family History Mother Family Medical History: Cancer, Dementia, Diabetes Mellitus, GERD/Reflux, Hyperlipidemia, Hypertension, Thyroid Disorder Additional Family Medical History / Comment(s): Quad CABG, cardiac stents, toes ampuated. Father History Unknown: Yes Family Medical History: No Reported History General Exam - General Exam Comments Initial Comments: This is a well-developed well-nourished awake alert oriented x 3 female ENT exam: Present: mucous membranes dry GI/Abdominal exam: Present: tenderness (Epigastric tenderness palpation no guarding rebound masses or bruits at this time.) Rectal exam: Present: deferred Course Vital Signs 04/28/17 04/28/17 04/28/17 15:09 17:24 18:47 Temperature 97.4 F L Pulse Rate 86 88 81 Respiratory 18 12 18 Rate Blood Pressure 113/77 105/70 111/66 O2 Sat by Pulse 98 88 L 94 L Oximetry EKG Findings - EKG Results: EKG: interpreted by AMANDA, sinus rhythm (Normal sinus rhythm rate is 72. Interval 156 QRS duration 76 daily since QTC of 412/451 nonspecific T-wave configuration.) Medical Decision Making - Medical Decision Making I did review the patient on multiple occasions she still has intractable nausea with some abdominal pain. She will be admitted - Lab Data Result diagrams: 04/28/17 15:30 04/28/17 15:30 Lab Results 04/28/17 04/28/17 04/28/17 Range/Units 15:30 15:30 15:30 WBC 10.1 (3.8-10.6) k/uL RBC 4.40 (3.80-5.40) m/uL Hgb 15.3 (11.4-16.0) gm/dL Hct 44.0 (34.0-46.0) % MCV 100.2 H (80.0-100.0) fL MCH 34.7 (25.0-35.0) pg MCHC 34.6 (31.0-37.0) g/dL RDW 14.9 (11.5-15.5) % Plt Count 263 (150-450) k/uL Neutrophils % 70 % Lymphocytes % 23 % Monocytes % 5 % Eosinophils % 1 % Basophils % 0 % Neutrophils # 7.0 (1.3-7.7) k/uL Lymphocytes # 2.4 (1.0-4.8) k/uL Monocytes # 0.5 (0-1.0) k/uL Eosinophils # 0.1 (0-0.7) k/uL Basophils # 0.0 (0-0.2) k/uL Macrocytosis Slight Sodium 137 (137-145) mmol/L Potassium 3.1 L (3.5-5.1) mmol/L Chloride 102 (98-107) mmol/L Carbon Dioxide 25 (22-30) mmol/L Anion Gap 10 mmol/L BUN 7 (7-17) mg/dL Creatinine 0.83 (0.52-1.04) mg/dL Est GFR (MDRD) Af Amer >60 (>60 ml/min/1.73 sqM) Est GFR (MDRD) Non-Af >60 (>60 ml/min/1.73 sqM) Glucose 106 H (74-99) mg/dL Calcium 9.2 (8.4-10.2) mg/dL Magnesium (1.6-2.3) mg/dL Total Bilirubin 0.4 (0.2-1.3) mg/dL AST 25 (14-36) U/L ALT 27 (9-52) U/L Alkaline Phosphatase 133 H (38-126) U/L Total Creatine Kinase 51 (30-135) U/L CK-MB (CK-2) <0.2 (0.0-2.4) ng/mL CK-MB (CK-2) Rel Index Troponin I <0.012 (0.000-0.034) ng/mL Total Protein 6.2 L (6.3-8.2) g/dL Albumin 3.7 (3.5-5.0) g/dL Amylase 54 (30-110) U/L Lipase 127 (23-300) U/L Urine Color Urine Appearance (Clear) Urine pH (5.0-8.0) Ur Specific [place] (1.001-1.035) Urine Protein (Negative) Urine Glucose (UA) (Negative) Urine Ketones (Negative) Urine Blood (Negative) Urine Nitrite (Negative) Urine Bilirubin (Negative) Urine Urobilinogen (<2.0) mg/dL Ur Leukocyte Esterase (Negative) 04/28/17 04/28/17 Range/Units 15:30 17:51 WBC (3.8-10.6) k/uL RBC (3.80-5.40) m/uL Hgb (11.4-16.0) gm/dL Hct (34.0-46.0) % MCV (80.0-100.0) fL MCH (25.0-35.0) pg MCHC (31.0-37.0) g/dL RDW (11.5-15.5) % Plt Count (150-450) k/uL Neutrophils % % Lymphocytes % % Monocytes % % Eosinophils % % Basophils % % Neutrophils # (1.3-7.7) k/uL Lymphocytes # (1.0-4.8) k/uL Monocytes # (0-1.0) k/uL Eosinophils # (0-0.7) k/uL Basophils # (0-0.2) k/uL Macrocytosis Sodium (137-145) mmol/L Potassium (3.5-5.1) mmol/L Chloride (98-107) mmol/L Carbon Dioxide (22-30) mmol/L Anion Gap mmol/L BUN (7-17) mg/dL Creatinine (0.52-1.04) mg/dL Est GFR (MDRD) Af Amer (>60 ml/min/1.73 sqM) Est GFR (MDRD) Non-Af (>60 ml/min/1.73 sqM) Glucose (74-99) mg/dL Calcium (8.4-10.2) mg/dL Magnesium 1.9 (1.6-2.3) mg/dL Total Bilirubin (0.2-1.3) mg/dL AST (14-36) U/L ALT (9-52) U/L Alkaline Phosphatase (38-126) U/L Total Creatine Kinase (30-135) U/L CK-MB (CK-2) (0.0-2.4) ng/mL CK-MB (CK-2) Rel Index Troponin I (0.000-0.034) ng/mL Total Protein (6.3-8.2) g/dL Albumin (3.5-5.0) g/dL Amylase (30-110) U/L Lipase (23-300) U/L Urine Color Light Yellow Urine Appearance Clear (Clear) Urine pH 6.0 (5.0-8.0) Ur Specific [place] 1.004 (1.001-1.035) Urine Protein Negative (Negative) Urine Glucose (UA) Negative (Negative) Urine Ketones Negative (Negative) Urine Blood Negative (Negative) Urine Nitrite Negative (Negative) Urine Bilirubin Negative (Negative) Urine Urobilinogen <2.0 (<2.0) mg/dL Ur Leukocyte Esterase Negative (Negative) - Radiology Data Radiology results: report reviewed (I did review the imaging and reports no acute findings.), image reviewed Disposition Clinical Impression: Intractable vomiting with nausea, Hypokalemia, Abdominal pain Disposition: ADMITTED IP TO THIS [facility] Condition: Stable Referrals: José Reece MD [Primary Care Provider] - 1-2 days
[2017-04-28 15:44] LABS: Basophils % (A) 0 %; Eosinophils # (A) 0.1 k/uL (0-0.7); Eosinophils % (A) 1 %; HGB 15.3 gm/dL (11.4-16.0); Lymphocytes # (A) 2.4 k/uL (1.0-4.8); Lymphocytes % (A) 23 %; MCH 34.7 pg (25.0-35.0); MCHC 34.6 g/dL (31.0-37.0); MCV 100.2 fL (80.0-100.0); Macrocytosis Slight; Monocytes # (A) 0.5 k/uL (0-1.0); Monocytes % (A) 5 %; Neutrophils % (A) 70 %; Platelet Count 263 k/uL (150-450); RDW 14.9 % (11.5-15.5); WBC 10.1 k/uL (3.8-10.6)
[2017-04-28 15:53] LABS: ALT 27 U/L (9-52); AST 25 U/L (14-36); Albumin 3.7 g/dL (3.5-5.0); Alkaline Phosphatase 133 U/L (38-126); Amylase 54 U/L (30-110); Anion Gap 10 mmol/L; Blood Urea Nitrogen 7 mg/dL (7-17); Calcium 9.2 mg/dL (8.4-10.2); Carbon Dioxide 25 mmol/L (22-30); Chloride 102 mmol/L (98-107); Glucose 106 mg/dL (74-99); Lipase 127 U/L (23-300); Potassium 3.1 mmol/L (3.5-5.1); Sodium 137 mmol/L (137-145); Total Bilirubin 0.4 mg/dL (0.2-1.3); Total Protein 6.2 g/dL (6.3-8.2)
[2017-04-28 15:59] LABS: Creatine Kinase 51 U/L (30-135)
--- NOTE | 2017-04-28 16:01 | XR ---
EXAMINATION TYPE: XR chest 2V DATE OF EXAM: 04/28/2017 COMPARISON: 03/05/2017 HISTORY: Chest pain TECHNIQUE: Frontal and lateral views of the chest are obtained. FINDINGS: There is no focal air space opacity. No evidence for pneumothorax. No pleural effusion. The cardiac silhouette size is within normal limits. The osseous structures are grossly intact. IMPRESSION: 1. No acute cardiopulmonary process.
--- NOTE | 2017-04-28 16:09 | XR ---
EXAMINATION TYPE: XR KUB DATE OF EXAM: 04/28/2017 CLINICAL DATA: 47-year-old female with abdominal pain and vomiting, [facility] COMPARISON: 01/10/2017 FINDINGS: Lung bases are clear. No evidence for free intraperitoneal air. Borderline caliber to small bowel loops in the upper abdomen at 2.9 cm. Air-fluid levels are present centrally in the small bowel. Scattered colonic gas is present. No significant stool burden seen. Cholecystectomy clips. No suspicious calcifications. IMPRESSION: Overall nonobstructive bowel gas pattern at this time. Borderline distended small bowel loops with ai r-fluid levels in the upper abdomen are favored to represent enteritis or regional ileus. Short inter doug follow-up may be helpful.
[2017-04-28 16:13] LABS: Creatine Kinase MB <0.2 ng/mL (0.0-2.4); Troponin I <0.012 ng/mL (0.000-0.034)
[2017-04-28] MEDS ORDERED: ONDANSETRON 4 MG/2 ML VIAL IVP STA (17:27)
[2017-04-28] MEDS ORDERED: POTASSIUM CHLORIDE 20 MEQ in SODIUM CHLORIDE 0.9% 100 ML IVPB STA (17:27)
[2017-04-28 18:01] LABS: Appearance,Urine Clear (Clear); Bilirubin,Urine Negative (Negative); Blood,Urine Negative (Negative); Color,Urine Light Yellow; Glucose,Urine (UA) Negative (Negative); Ketones,Urine Negative (Negative); Leukocyte Esterase,Urine Negative (Negative); Nitrite,Urine Negative (Negative); Protein,Urine Negative (Negative); Specific Gravity,Urine 1.004 (1.001-1.035); Urobilinogen,Urine <2.0 mg/dL (<2.0)
[2017-04-28] MEDS ORDERED: DICYCLOMINE 10 MG/ML 2 ML AMP IM STA (18:02)
[2017-04-28] MEDS ORDERED: ACETAMINOPHEN TAB 325 MG TAB PO PRN (19:09)
[2017-04-28] MEDS ORDERED: NALOXONE 0.4 MG/ML 1 ML VIAL IV PRN (19:09)
[2017-04-28] MEDS ORDERED: BUTALB/APAP/CAFF 50-325-40MG TAB PO PRN (19:12)
[2017-04-28] MEDS: ONDANSETRON 4 MG/2 ML VIAL IVP PRN (20:15)
[2017-04-28] MEDS: HYDROmorphone 0.5 MG/0.5 ML SYRINGE IVP PRN ×2 (20:23→23:52)
[2017-04-28] MEDS: 0.9% NACL WITH KCL 20 MEQ/L 1,000 ML IV SCH (20:24)
[2017-04-28] MEDS: ZONISAMIDE 100 MG CAP PO SCH (20:25)
[2017-04-28] MEDS: ATORVASTATIN 40 MG TAB PO SCH (20:25)
[2017-04-28 21:10] LABS: Glucose,Whole Blood 104 mg/dL (75-99)
[2017-04-29 02:12] LABS: Glucose,Whole Blood 104 mg/dL (75-99)
[2017-04-29] MEDS: ONDANSETRON 4 MG/2 ML VIAL IVP PRN ×4 (03:04→22:48)
[2017-04-29] MEDS: HYDROmorphone 0.5 MG/0.5 ML SYRINGE IVP PRN ×7 (03:05→21:54)
[2017-04-29] MEDS: 0.9% NACL WITH KCL 20 MEQ/L 1,000 ML IV SCH ×2 (06:18→16:51)
[2017-04-29 07:02] LABS: Glucose,Whole Blood 115 mg/dL (75-99)
[2017-04-29 08:10] LABS: Basophils % (A) 1 %; Eosinophils # (A) 0.2 k/uL (0-0.7); Eosinophils % (A) 3 %; HCT 37.8 % (34.0-46.0); HGB 12.7 gm/dL (11.4-16.0); Lymphocytes # (A) 2.5 k/uL (1.0-4.8); Lymphocytes % (A) 40 %; MCH 33.6 pg (25.0-35.0); MCHC 33.6 g/dL (31.0-37.0); Mean Platelet Volume 9.4; Monocytes # (A) 0.3 k/uL (0-1.0); Monocytes % (A) 6 %; Neutrophils % (A) 49 %; Platelet Count 198 k/uL (150-450); RBC 3.78 m/uL (3.80-5.40); RDW 14.1 % (11.5-15.5); WBC 6.1 k/uL (3.8-10.6)
[2017-04-29 08:38] LABS: Anion Gap 6 mmol/L; Blood Urea Nitrogen 6 mg/dL (7-17); Calcium 8.5 mg/dL (8.4-10.2); Carbon Dioxide 24 mmol/L (22-30); Chloride 111 mmol/L (98-107); Glucose 97 mg/dL (74-99); Potassium 3.5 mmol/L (3.5-5.1); Sodium 141 mmol/L (137-145)
[2017-04-29] MEDS: ZONISAMIDE 100 MG CAP PO SCH ×2 (08:43→20:27)
[2017-04-29 10:27] VITALS: BMI 29.4
[2017-04-29] MEDS ORDERED: IOHEXOL 350 MG/ML 25 ML BOTTLE (ORAL USE) PO PRN (10:34)
[2017-04-29 11:14] LABS: Glucose,Whole Blood 95 mg/dL (75-99)
--- NOTE | 2017-04-29 11:26 | P.CONS ---
History of Present Illness - Reason for Consult Consult date: 04/29/17 nausea vomiting abdominal pain Requesting physician: All Wilson - History of Present Illness 47-year-old female with a history of bipolar disorder, multiple abdominal surgeries; abdominal hernia repairs, Asha fundoplication, appendectomy, cholecystectomy, laparoscopies, endometriosis, migraines, chronic neck and back pain presents with acute on chronic intractable nausea vomiting diffuse abdominal pain and vomiting. She was evaluated in the GI office last week in regards to persistent nausea vomiting for at least 3 weeks. Presently denies diarrhea constipation hematemesis hematochezia melena. Afebrile. Hospitalized and evaluated by GI service in January 2017 for colitis. 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 January 2017; CT abdomen and pelvis with IV contrast reported mucosal thickening with very mild freedman colitis pericolonic inflammation seen in the entirety of the colon with appearance of intramural fat throughout. Repeat CT abdomen scheduled later today. No history of personal or familial inflammatory bowel disease. Patient states her last colonoscopy for evaluation of abdominal pain was 2 years [address] performed [address] Trejo with unremarkable findings. EGD August 2014 reported antral gastritis esophagitis and hiatal hernia. Review of Systems Constitutional: Denies fever, chills, sweats, weight gain, or loss. HEENT: History of migraines denies, blurred vision or loss, earaches, drainage, tinnitus, oral mucosal lesions, dysphagia, or odynophagia. CARDIAC: Negative for chest pain, arrhythmias, or palpitation. RESPIRATORY: Nicotine cigarette dependency. Negative for shortness of breath, hemoptysis, cough, or sputum production. GI: See HPI for pertinent findings. : Negative for hematuria, urgency, frequency, polyuria, or dysuria. GYNc: Denies possibility of . Negative vaginal discharge. MUSCULOSKELETAL: Chronic neck and back pain. Negative for muscle aches, swelling, arthritis, and arthralgias. NEUROLOGIC: Negative for stroke or TIA. ENDOCRINE: Hypothyroidism.. SKIN: Negative for rash or itching. PSYCHIATRIC: Bipolar disorder. Past Medical History Past Medical History: Hyperlipidemia, Hypertension, Seizure Disorder, Thyroid Disorder Additional Past Medical History / Comment(s): Migraines, viral meningitis x3 as a child, 1995, 2000, chronic back pain, nerve blocks 08/2016 and 12/2016. 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 Bipolar, anxiety History of Any Multi-Drug Resistant Organisms: None Reported Past Surgical History: Appendectomy, Section, Cholecystectomy, Hernia Repair, Hysterectomy, Orthopedic Surgery, Tonsillectomy, Tubal Ligation Additional Past Surgical History / Comment(s): Hiatal Hernia, umbilical hernia repair, left rotator cuff repair, bilateral knee scopes, pain clinic procedures- occipital nerve block on 01/05/2017. Past Anesthesia/Blood Transfusion Reactions: No Reported Reaction Additional Past Anesthesia/Blood Transfusion Reaction / Comm: Claustrophobic Past Psychological History: Anxiety, Bipolar, Panic Disorder Additional Psychological History / Comment(s): last manic episode 6 months ago. Smoking Status: Current every day smoker Past Alcohol Use History: Rare Additional Past Alcohol Use History / Comment(s): SMOKING SINCE 1981; smokes about 2 cigarettes per day per pt Past Drug Use History: None Reported - Past Family History Mother Family Medical History: Cancer, Dementia, Diabetes Mellitus, GERD/Reflux, Hyperlipidemia, Hypertension, Thyroid Disorder Additional Family Medical History / Comment(s): Quad CABG, cardiac stents, toes ampuated. Father History Unknown: Yes Family Medical History: No Reported History Medications and Allergies Home Medications Medication Instructions Recorded Confirmed Type Zonisamide [Zonegran] 200 mg PO Q12HR 03/12/17 04/28/17 History Atorvastatin [Lipitor] 40 mg PO HS 04/02/17 04/28/17 History Butalb/APAP/Caff 50-325-40Mg 1 tab PO DAILY PRN 04/02/17 04/28/17 History [Fioricet 50-325-40] Allergies Allergy/AdvReac Type Severity Reaction Status Date / Time gabapentin [From Neurontin] Allergy Itching Verified 04/28/17 15:24 latex Allergy Anaphylaxis Verified 04/28/17 15:24 naproxen [From Naprosyn] Allergy Anaphylaxis Verified 04/28/17 15:24 Penicillins Allergy Anaphylaxis Verified 04/28/17 15:24 quetiapine fumarate Allergy Itching, Verified 04/28/17 15:24 [From Seroquel] leg cramps rofecoxib [From Vioxx] Allergy Itching, Verified 04/28/17 15:24 leg cramps terfenadine [From Seldane] Allergy Rash/Hives Verified 04/28/17 15:24 tramadol Allergy Nausea & Verified 04/28/17 15:24 Vomiting/LEG CRAMPS/HEART FLUTTERS calcium carbonate [From DHEA] AdvReac Chest Pain Verified 04/28/17 15:24 calcium phosphate,dibasic AdvReac Chest Pain Verified 04/28/17 15:24 [From DHEA] clindamycin AdvReac muscle Verified 04/28/17 15:24 cramps clonidine AdvReac fast Verified 04/28/17 15:24 heartbeat, migraine dextromethorphan HBr AdvReac face/neck Verified 04/28/17 15:24 [From NyQuil] flushing diazepam [From Valium] AdvReac Nausea & Verified 04/28/17 15:24 Vomiting divalproex sodium AdvReac Nausea & Verified 04/28/17 15:24 [From Depakote] Vomiting doxylamine [From NyQuil] AdvReac face "beet Verified 04/28/17 15:24 red", elevated temp. ibuprofen [From Motrin] AdvReac abdominal Verified 04/28/17 15:24 & muscle cramps indomethacin [From Indocin] AdvReac Abdominal Verified 04/28/17 15:24 Pain,N/V ketorolac tromethamine AdvReac "built up Verified 04/28/17 15:24 [From Toradol] in system", had to be given something to reverse metoclopramide HCl AdvReac muscle Verified 04/28/17 15:24 [From Reglan] cramps prasterone (DHEA) [From DHEA] AdvReac Chest Pain Verified 04/28/17 15:24 prochlorperazine AdvReac leg Verified 04/28/17 15:24 [From Compazine] cramping propranolol AdvReac Chest Pain Verified 04/28/17 15:24 pseudoephedrine HCl AdvReac face "beet Verified 04/28/17 15:24 [From NyQuil] red", elevated temp. quetiapine [From Seroquel] AdvReac leg Verified 04/28/17 15:24 cramping sumatriptan [From Imitrex] AdvReac migrane Verified 04/28/17 15:24 sumatriptan succinate AdvReac migrane Verified 04/28/17 15:24 [From Imitrex] topiramate [From Topamax] AdvReac "built up Verified 04/28/17 15:24 in system", had to be given something to reverse trazodone AdvReac "built up Verified 04/28/17 15:24 in system", had to be given something to reverse zolpidem tartrate AdvReac "Became Verified 04/28/17 15:24 [From Ambien] violent with no memory" artificial sweetener AdvReac SEVERE Uncoded 04/02/17 16:49 MIGRAINE HEADACHE Physical Exam Vitals: Vital Signs Temp Pulse Pulse Resp BP BP Pulse Ox 04/29/17 07:00 97.9 F 66 16 106/63 97 04/28/17 21:56 97.8 F 83 18 130/91 96 04/28/17 19:57 97.5 F L 78 18 112/71 97 04/28/17 18:47 81 18 111/66 94 L 04/28/17 17:24 88 12 105/70 88 L 04/28/17 15:09 97.4 F L 86 18 113/77 98 Intake and Output 04/28/17 04/29/17 04/29/17 22:59 06:59 14:59 Intake Total 600 Balance 600 Intake: Intake, IV Titration 200 Amount 0.9% NaCl with KCl 20 Meq 200 /l 1,000 ml @ 100 mls/hr IV .Q10H PAMELA Rx#: [id number] Oral 400 Other: Voiding Method Toilet Toilet # Voids 2 1 Weight 75.296 kg 75.296 kg Patient Weight 04/30/17 06:59 Weight 75.296 kg General appearance: The patient is alert, oriented, in no acute distress. HET: Head is normocephalic and atraumatic. Pupils are equal and reactive. Oropharynx is clear without lesions. Neck: Supple without lymphadenopathy. Trachea midline. Heart: S1 S2. Regular rate and rhythm. Lungs: No crackles or wheezes are heard. Abdomen: Soft, mild left-sided tenderness, nondistended with bowel sounds. No peritoneal signs. No palpable organomegaly or masses. Extremities: Normal skin color and turgor. No cyanosis, rash, ulceration, clubbing, or edema. Radial and pedal pulses are 2/4 bilaterally. Neurological: No focal deficits. Strength and sensation are grossly intac Results CBC & Chem 7: 04/29/17 07:43 04/29/17 07:43 Labs: Abnormal Lab Results - Last 24 Hours (Table) 04/28/17 04/28/17 04/28/17 Range/Units 15:30 15:30 21:09 RBC (3.80-5.40) m/uL MCV 100.2 H (80.0-100.0) fL Potassium 3.1 L (3.5-5.1) mmol/L Chloride (98-107) mmol/L BUN (7-17) mg/dL Glucose 106 H (74-99) mg/dL POC Glucose (mg/dL) 104 H (75-99) mg/dL Alkaline Phosphatase 133 H (38-126) U/L Total Protein 6.2 L (6.3-8.2) g/dL 04/29/17 04/29/17 04/29/17 Range/Units 02:10 07:01 07:43 RBC 3.78 L (3.80-5.40) m/uL MCV (80.0-100.0) fL Potassium (3.5-5.1) mmol/L Chloride (98-107) mmol/L BUN (7-17) mg/dL Glucose (74-99) mg/dL POC Glucose (mg/dL) 104 H 115 H (75-99) mg/dL Alkaline Phosphatase (38-126) U/L Total Protein (6.3-8.2) g/dL 04/29/17 Range/Units 07:43 RBC (3.80-5.40) m/uL MCV (80.0-100.0) fL Potassium (3.5-5.1) mmol/L Chloride 111 H (98-107) mmol/L BUN 6 L (7-17) mg/dL Glucose (74-99) mg/dL POC Glucose (mg/dL) (75-99) mg/dL Alkaline Phosphatase (38-126) U/L Total Protein (6.3-8.2) g/dL CT scan - abdomen: pending Assessment and Plan (1) Intractable vomiting with nausea Narrative/Plan: Etiology unclear; acute on chronic intractable nausea vomiting and generalized nonspecific abdominal pain with recent episode of colitis January 2017. possible irritable bowel syndrome possible colitis peptic ulcer disease possible gastroparesis. Current Visit: Yes Status: Acute Code(s): R11.2 - NAUSEA WITH VOMITING, UNSPECIFIED SNOMED Code(s): 901461108 (2) Abdominal pain Current Visit: Yes Status: Acute Code(s): R10.9 - UNSPECIFIED ABDOMINAL PAIN SNOMED Code(s): 70038938 Plan: 1. EGD colonoscopy tomorrow. CT abdomen today. 2. GI prophylaxis. We'll follow with you. The side laster staple has discussed the risks, benefits and alternative therapies for the above-mentioned procedure and for both sedation/analgesia as well as necessary blood product administration, if indicated, as they pertain to this patient. The patient has indicated understanding and acceptance of the risks and procedures discussed. Thank you for this kind referral and the opportunity to participate in the care of your patient. This consultation was discussed with Dr. Jenkins. The impression and plan of care have been directed as dictated.
[2017-04-29 12:24] LABS: Amphetamine Screen,Urine Not Detected (NotDetected); Barbiturate Screen,Urine Detected (NotDetected); Benzodiazepines Screen,Urine Not Detected (NotDetected); Cocaine Screen,Urine Not Detected (NotDetected); Methadone Screen, Urine Not Detected (NotDetected); Opiate Screen,Urine Detected (NotDetected); Oxycodone Screen, Urine Not Detected (NotDetected); Phencyclidine Screen,Urine Not Detected (NotDetected); Tricyclic Antidepressant,Urine Not Detected (NotDetected); Urn Cannabinoid Scrn Not Detected (NotDetected)
--- NOTE | 2017-04-29 13:03 | CT ---
EXAMINATION TYPE: CT abdomen pelvis wo intravenous con DATE OF EXAM: 04/29/2017 COMPARISON: 01/05/2017 HISTORY: Mid to upper abdominal pain with nausea and vomiting. History of hiatal hernia repair and um bilical hernia repair cells appendectomy, , hysterectomy, cholecystectomy and tubal ligation . CT DLP: 427.7. mGycm Automated exposure control for dose reduction was used. TECHNIQUE: Helical acquisition of images was performed from the lung bases through the pelvis withou t intravenous contrast. Oral contrast per protocol was utilized. FINDINGS: Lack of intravenous contrast limits evaluation of the solid viscera. LUNG BASES: No significant abnormality is appreciated. LIVER/GB: Gallbladder surgically absent. Wedge-shaped decreased attenuation is seen in segment IVb of the liver near the fissure for the ligamentum teres, most commonly related to hepatic steatosis. PANCREAS: No significant abnormality is seen. No ductal dilatation. SPLEEN: No significant abnormality is seen. No splenomegaly ADRENALS: No significant abnormality is seen. No thickening or nodularity. KIDNEYS: No significant abnormality is seen. No hydronephrosis or nephrolithiasis. FREE AIR: No free air is visualized REPRODUCTIVE ORGANS: Uterus is surgically absent. URINARY BLADDER: Decompressed and incompletely evaluated. ADENOPATHY: None visualized. OSSEOUS STRUCTURES: Mild multilevel degenerative disc disease of the thoracolumbar and lumbosacral s pine. BOWEL: Postsurgical changes are seen in the gastroesophageal junction. There is worsening of the pre viously seen circumferential long segment bowel wall thickening of the ascending colon, hepatic flexu re and majority of the transverse colon in comparison to the prior of 01/05/2017. This appears to invo lve the descending colon to a lesser degree but skips the splenic flexure. Sigmoid colon is mildly in volved. Again intramural fat is seen favoring acute on chronic component. OTHER: Atrophy is again noted at the inferior right lateral rectus musculature. IMPRESSION: Interval worsening of the previously seen pancolitis with intramural fat again favoring an acute on c hronic component with relative sparing of the splenic flexure. Findings are most significant within t he ascending colon, hepatic flexure and transverse colon. Inflammatory bowel disease and or chronic C . difficile should again be considered.
[2017-04-29] MEDS ORDERED: BISACODYL 5 MG TABLET.DR PO ONE (14:00)
[2017-04-29] MEDS ORDERED: MAGNESIUM CITRATE 296 ML BOTTLE PO ONE (16:00)
[2017-04-29 16:26] LABS: Glucose,Whole Blood 110 mg/dL (75-99)
[2017-04-29] MEDS ORDERED: POLYETHYLENE GLYCOL LYTES SOLN 4,000 ML SOLN.RECON PO ONE (19:00)
--- NOTE | 2017-04-29 19:46 | HP ---
HISTORY AND PHYSICAL CHIEF COMPLAINTS: Nausea, vomiting and diarrhea. HISTORY OF PRESENT ILLNESS: This 47-year-old woman with a past medical history of multiple medical problems, including hypertension, seizure disorder, history of migraine, being followed by Dr. Reece in the outpatient setting, was complaining of nausea and vomiting as well as diarrhea on and off for the last more than 1 month. The patient was recently admitted to hospital, but the patient left the hospital AGAINST MEDICAL ADVICE. Now because of increased symptoms, the patient came to [facility] and was admitted for further evaluation and treatment. There is no history of any fever, rigor, chills, no history of headache, loss of consciousness, seizures. The nausea and vomiting were provoked by eating, according to her. PAST MEDICAL HISTORY: 1. History of hypertension. 2. Hyperlipidemia. 3. Seizure disorder. 4. Hypothyroidism. 5. History of migraine. 6. History of viral meningitis. 7. Anxiety. 8. Bipolar. 9. Panic disorder. HOME MEDICATIONS: 1. Zonegran 200 mg p.o. b.i.d. 2. Fioricet 1 tablet p.o. daily p.r.n. 3. Lipitor 40 mg at bedtime. ALLERGIES: MULTIPLE ALLERGIES, INCLUDIN. GABAPENTIN. 2. LATEX. 3. NAPROSYN. 4. PENICILLIN. 5. SEROQUEL. 6. VIOXX. 7. SELDANE. 8. ULTRAM. 9. DHEA. 10.CLINDAMYCIN. 11.CLONIDINE. 12.NYQUIL. 13.VALIUM. 14.DEPAKOTE. 15.MOTRIN. 16.INDOCIN. 17.TORADOL. 18.REGLAN. 19.COMPAZINE. 20.PROPRANOLOL. 21.IMITREX. 22.TOPAMAX. 23.TRAZODONE. 24.AMBIEN. FAMILY HISTORY: History of cancer, dementia, diabetes mellitus, GERD, hypertension, hyperlipidemia, CABG in the family. SOCIAL HISTORY: History of smoking. No history of alcohol or substance abuse. REVIEW OF SYSTEMS: ENT: No diminished hearing. No diminished vision. CARDIOVASCULAR SYSTEM: As mentioned earlier. RESPIRATORY SYSTEM: As mentioned earlier. GI: As mentioned earlier. : No dysuria or retention. NERVOUS SYSTEM: No numbness, weakness. ALLERGY/IMMUNOLOGY: No asthma, hayfever. MUSCULOSKELETAL: As mentioned earlier. HEMATOLOGY/ONCOLOGY: No history of anemia. ENDOCRINE: No history of diabetes, hypothyroidism. CONSTITUTIONAL: As mentioned earlier. DERMATOLOGY: Negative. RHEUMATOLOGY: Negative. PSYCHIATRY: As mentioned earlier. PHYSICAL EXAMINATION: Alert, oriented x3. Pulse 81, blood pressure 109/70, respiration 16, temperature 98.0, pulse ox 96% on room air. HEENT: Conjunctivae normal. Oral mucosa moist. NECK: No jugular venous distention. No carotid bruit. No lymph node enlargement. CARDIOVASCULAR SYSTEM: S1, S2 muffled. No S3. No S4. RESPIRATORY SYSTEM: Breath sounds diminished at the bases. No rhonchi. No crackles. ABDOMEN: Soft. Mild diffuse discomfort on palpation. No guarding. No rigidity. No mass palpable. LEGS: No edema. No swelling. NERVOUS SYSTEM: Higher functions as mentioned earlier. Moves all 4 limbs. No focal motor or sensory deficit. LYMPHATICS: No lymph node palpable in neck, axillae or groin. SKIN: No ulcer, rash, bleeding. LAB: WBC 6.2, hemoglobin 12.7. ASSESSMENT: 1. Intractable nausea, vomiting, diarrhea; rule out gastroenteritis. Most likely pancolitis with inflammatory bowel disease. 2. Hypertension. 3. Hyperlipidemia. 4. Seizure disorder. 5. Migraine. 6. Viral meningitis. 7. Appendectomy. 8. Anxiety. 9. Bipolar. 10.Depression. 11.Panic disorder. 12.History of hiatal hernia. RECOMMENDATION AND DISCUSSION: Continue current medications. Continue symptomatic treatment. I recommend a CT scan of the abdomen and pelvis as well as gastroenterology evaluation. Possible endoscopies EGD and colonoscopy. Prognosis guarded. Further recommendations to follow. The possibility of colitis or irritable bowel syndrome and also peptic ulcer disease is also considered. See orders for further details. A copy of this dictation is being forwarded to Dr. Reece, who is the primary physician. The CT scan showed pancolitis. MMODL / IJN: [id number] /
[2017-04-29 20:00] LABS: Glucose,Whole Blood 109 mg/dL (75-99)
[2017-04-29] MEDS: ATORVASTATIN 40 MG TAB PO SCH (20:27)
[2017-04-29] MEDS: PANTOPRAZOLE 40 MG/10 ML VIAL IVP SCH (20:27)
[2017-04-30] MEDS ORDERED: HYDROmorphone 0.5 MG/0.5 ML SYRINGE ONE (01:20)
[2017-04-30 04:40] LABS: Glucose,Whole Blood 87 mg/dL (75-99)
[2017-04-30] MEDS: 0.9% NACL WITH KCL 20 MEQ/L 1,000 ML IV SCH (04:47)
[2017-04-30] MEDS: HYDROmorphone 0.5 MG/0.5 ML SYRINGE IVP PRN ×6 (04:47→22:17)
[2017-04-30] MEDS: ONDANSETRON 4 MG/2 ML VIAL IVP PRN ×3 (04:55→18:39)
[2017-04-30 07:11] LABS: Glucose,Whole Blood 93 mg/dL (75-99)
[2017-04-30] MEDS ORDERED: LIDOCAINE 1% 20 ML VIAL (10MG/ML) FOR IV START INTRADERMA PRN (08:04)
[2017-04-30] MEDS: ZONISAMIDE 100 MG CAP PO SCH ×2 (08:06→20:24)
[2017-04-30] MEDS: PANTOPRAZOLE 40 MG/10 ML VIAL IVP SCH ×2 (08:09→20:24)
[2017-04-30 09:21] LABS: Anion Gap 7 mmol/L; Blood Urea Nitrogen 3 mg/dL (7-17); Calcium 8.3 mg/dL (8.4-10.2); Carbon Dioxide 23 mmol/L (22-30); Chloride 113 mmol/L (98-107); Glucose 87 mg/dL (74-99); Potassium 3.7 mmol/L (3.5-5.1); Sodium 143 mmol/L (137-145)
[2017-04-30 09:25] LABS: Basophils % (A) 0 %; Eosinophils # (A) 0.1 k/uL (0-0.7); Eosinophils % (A) 3 %; HCT 39.6 % (34.0-46.0); HGB 13.1 gm/dL (11.4-16.0); Lymphocytes # (A) 1.6 k/uL (1.0-4.8); Lymphocytes % (A) 29 %; MCHC 33.1 g/dL (31.0-37.0); MCV 102.9 fL (80.0-100.0); Macrocytosis Slight; Mean Platelet Volume 8.6; Monocytes # (A) 0.2 k/uL (0-1.0); Monocytes % (A) 4 %; Neutrophils # (A) 3.4 k/uL (1.3-7.7); Neutrophils % (A) 63 %; Platelet Count 210 k/uL (150-450); RBC 3.85 m/uL (3.80-5.40); RDW 13.3 % (11.5-15.5); WBC 5.4 k/uL (3.8-10.6)
[2017-04-30] MEDS: LACTATED RINGERS 1,000 ML IV SCH (11:30)
[2017-04-30 12:05] LABS: Glucose,Whole Blood 86 mg/dL (75-99)
[2017-04-30] MEDS ORDERED: MIDAZOLAM 2 MG/2 ML VIAL ONE (14:41)
[2017-04-30] MEDS ORDERED: LIDOCAINE 1% INJ 10MG/ML (20 ML MDV) ONE (14:41)
[2017-04-30] MEDS ORDERED: fentaNYL (PF) 50 MCG/ML 2 ML AMP ONE (14:41)
[2017-04-30] MEDS ORDERED: PROPOFOL 10 MG/ML 20 ML VIAL IV ONE (14:41)
[2017-04-30] MEDS ORDERED: IV FLUID CONTINUATION 1,000 ML IV ONE (14:55)
--- NOTE | 2017-04-30 15:26 | P.PCN ---
Date of Procedure: 04/30/17 Procedure(s) Performed: Procedures: 1. Esophagogastroduodenoscopy and biopsy. 2. Colonoscopy and biopsy. Preoperative diagnosis: Abdominal pain, nausea, vomiting and diarrhea. Postoperative diagnosis: 1. S/P fundoplication with no evidence of esophagitis or complicated reflux disease. 2. Mild antral gastritis. 3. Normal colon and terminal ileum. 4. Biopsies obtained from the duodenum, antrum, esophagus, terminal ileum and random colon. Preparation: GoLYTELY prep. Sedation: Was provided by anesthesia. Brief clinical history: The patient is a 47-year-old female with a history of bipolar disorder, multiple abdominal surgeries: abdominal hernia repairs, Asha fundoplication, appendectomy, cholecystectomy, laparoscopies and endometriosis; migraines, chronic neck and back pain who presented with acute on chronic intractable nausea, vomiting diffuse abdominal pain and vomiting. She was evaluated in our office last week in regards to persistent nausea and vomiting for at least 3 weeks. Presently denies diarrhea, constipation, hematemesis, hematochezia or melena. Afebrile. Hospitalized and evaluated by our service in January [address] of the abdomen and pelvis with IV contrast reported mucosal thickening with very mild freedman colitis, pericolonic inflammation seen in the entirety of the colon with appearance of intramural fat throughout. No history of personal or familial inflammatory bowel disease. Patient states her last colonoscopy for evaluation of abdominal pain was 2 years ago performed by Dr. Trejo with unremarkable findings. EGD August 2014 reported antral gastritis esophagitis and hiatal hernia. The details are summarized in the history and physical and dictated consultation and progress notes. Procedure: With the patient on her left lateral decubitus position and after informed consent and adequate sedation, I passed the Olympus-GIF 160 video upper endoscope through the cricopharyngeus down the esophagus. The esophagus did not show any obvious abnormalities. The endoscope was then passed into the stomach which was insufflated with air and inspected in detail including the retroflex view in the cardia. I noted a prior fundoplication. Also noted was mottling and erythema in the antrum consistent with mild gastritis. The endoscope was then passed through the pylorus into the duodenum. There were no pyloric channel ulcers. Duodenal bulb, post bulbar area and descending duodenum appeared within normal limits. I obtained biopsies from the duodenum, antrum and esophagus then the endoscope was withdrawn and I proceeded with the colonoscopy. Perianal area did not show any fissures or fistulas. There were no masses felt on digital rectal examination. The Olympus CFQ 160L video colonoscope was then inserted in the rectum in the usual fashion and advanced to the cecum. I intubated the ileocecal valve and examined the terminal ileum. Terminal ileum and colon appeared healthy with no edema, erythema, friability, ulceration, exudation or spontaneous bleeding. I obtained biopsies from the terminal ileum and randomly from the colon then I retroflexed the endoscope in the rectum before the endoscope was withdrawn. The patient tolerated the procedure well. Plan: The patient was reassured. Will await pathology results then make further plans based on her course and biopsy results. I will discuss with you and follow with you with interest.
[2017-04-30 16:50] VITALS: RESP 18
[2017-04-30] MEDS: ATORVASTATIN 40 MG TAB PO SCH (20:24)
--- NOTE | 2017-04-30 22:11 | PN ---
PROGRESS NOTE DATE OF SERVICE: 04/30/2017 This 47-year-old woman who was admitted with intractable nausea, vomiting and diarrhea is being closely monitored. Dr. Jenkins performed EGD and colonoscopy. EGD showed fundoplication with no evidence of esophagitis or complicated reflux disease, mild antral gastritis. Normal colon, terminal ileum was noted and biopsies were obtained. No chest pain. No palpitations. No fever. PHYSICAL EXAMINATION: Alert and oriented x3. Pulse 86, blood pressure 130/72, respiration 16, temperature 97.7, pulse ox 96% on room air. HEENT: Conjunctivae normal. NECK: No jugular venous distention. CARDIOVASCULAR SYSTEM: S1, S2 muffled. RESPIRATORY SYSTEM: Breath sounds diminished at the bases. No rhonchi. No crackles. ABDOMEN: Soft. Mild diffuse discomfort. No guarding or rigidity. No mass palpable. LEGS: No edema. No swelling. NERVOUS SYSTEM: No focal deficit. LABS: WBC 5.2, hemoglobin 13.1. ASSESSMENT: 1. Intractable nausea, vomiting and diarrhea; possible acute gastroenteritis. 2. EGD showed mild antral gastritis. Normal colonoscopy, status post biopsies. 3. Possible irritable bowel syndrome. 4. Hypertension. 5. Hyperlipidemia. 6. Seizure disorder. 7. Migraine. 8. Viral meningitis. 9. History of appendectomy. 10.History of anxiety. 11.History of bipolar. 12.History of depression. 13.History of panic disorder. 14.History of hiatal hernia. RECOMMENDATIONS AND DISCUSSION: I recommend to continue current medications, continue to monitor. Symptomatic treatment. At this time I recommend continued monitoring. I would also recommend testing for celiac disease. MMODL / IJN: [id number] /
[2017-05-01] MEDS: HYDROmorphone 0.5 MG/0.5 ML SYRINGE IVP PRN (02:19)
[2017-05-01] MEDS: HYDROmorphone 2 MG/ML 1 ML SYRINGE IVP PRN ×2 (06:27→09:38)
[2017-05-01] MEDS: ONDANSETRON 4 MG/2 ML VIAL IVP PRN (08:08)
[2017-05-01] MEDS: LACTATED RINGERS 1,000 ML IV SCH (08:08)
[2017-05-01] MEDS: ZONISAMIDE 100 MG CAP PO SCH (08:08)
[2017-05-01] MEDS: PANTOPRAZOLE 40 MG/10 ML VIAL IVP SCH (08:08)
[2017-05-01 08:34] VITALS: BP 127/72; PULSE 73; TEMP 97.8
[2017-05-01 09:57] LABS: Basophils % (A) 0 %; Eosinophils # (A) 0.1 k/uL (0-0.7); Eosinophils % (A) 1 %; HCT 38.9 % (34.0-46.0); HGB 13.2 gm/dL (11.4-16.0); Lymphocytes # (A) 1.5 k/uL (1.0-4.8); Lymphocytes % (A) 17 %; MCH 34.4 pg (25.0-35.0); MCHC 33.9 g/dL (31.0-37.0); MCV 101.3 fL (80.0-100.0); Macrocytosis Slight; Mean Platelet Volume 9.6; Monocytes # (A) 0.3 k/uL (0-1.0); Monocytes % (A) 4 %; Neutrophils # (A) 6.7 k/uL (1.3-7.7); Neutrophils % (A) 77 %; Platelet Count 197 k/uL (150-450); RBC 3.84 m/uL (3.80-5.40); RDW 14.5 % (11.5-15.5); WBC 8.7 k/uL (3.8-10.6)
--- NOTE | 2017-05-01 10:06 | P.PN ---
Subjective Progress Note Date: 05/01/17 Principal diagnosis: Abdominal pain nausea vomiting Status post EGD colonoscopy yesterday for evaluation of nausea vomiting abdominal pain diarrhea with no evidence of esophagitis or complicated reflux disease. Normal colon and terminal ileum status post biopsies. Patient still reports significant abdominal pain requesting IV Dilaudid. Afebrile. No bleeding. Objective - Vital Signs Vital signs: Vital Signs Temp 97.8 F 05/01/17 07:00 Pulse 73 05/01/17 08:00 Resp 18 05/01/17 08:00 BP 127/72 05/01/17 07:00 Pulse Ox 98 05/01/17 07:00 Intake & Output 04/30/17 05/01/17 05/01/17 18:59 06:59 18:59 Intake Total 300 230 Balance 300 230 Intake: IV 300 Intake, IV Titration 230 Amount Lactated Ringers 1,000 ml 230 @ 20 mls/hr IV .Q24H PAMELA Rx#:[id number] Oral 0 Other: Voiding Method Toilet Toilet Toilet # Voids 2 1 1 - Exam General appearance: The patient is alert, oriented, in no acute distress. HET: Head is normocephalic and atraumatic. Pupils are equal and reactive. Oropharynx is clear without lesions. Neck: Supple without lymphadenopathy. Trachea midline. Heart: S1 S2. Regular rate and rhythm. Lungs: No crackles or wheezes are heard. Abdomen: Soft, diffuse mild upper abdominal pain, nondistended with bowel sounds. No peritoneal signs. No palpable organomegaly or masses. Extremities: Normal skin color and turgor. No cyanosis, rash, ulceration, clubbing, or edema. Radial and pedal pulses are 2/4 bilaterally. Neurological: No focal deficits. Strength and sensation are grossly intact. - Labs CBC & Chem 7: 04/30/17 08:27 04/30/17 08:27 Assessment and Plan (1) Intractable vomiting with nausea Narrative/Plan: Etiology unclear; acute on chronic intractable nausea vomiting and generalized nonspecific abdominal pain with recent episode of colitis January 2017. possible irritable bowel syndrome. Status post EGD colonoscopy with no acute findings. Current Visit: Yes Status: Acute Code(s): R11.2 - NAUSEA WITH VOMITING, UNSPECIFIED SNOMED Code(s): 229783286 (2) Abdominal pain Current Visit: Yes Status: Acute Code(s): R10.9 - UNSPECIFIED ABDOMINAL PAIN SNOMED Code(s): 62726407 Plan: 1. Continue supportive measures. Will add Bentyl 10 mg 4 times daily to medication regimen. Diet as tolerated. 2. Follow-up in office in 1-2 weeks. Assessment and plan a care discussed with Dr. Jenkins.
[2017-05-01 10:15] LABS: Anion Gap 10 mmol/L; Blood Urea Nitrogen 4 mg/dL (7-17); Calcium 8.6 mg/dL (8.4-10.2); Carbon Dioxide 24 mmol/L (22-30); Chloride 105 mmol/L (98-107); Glucose 73 mg/dL (74-99); Potassium 3.4 mmol/L (3.5-5.1); Sodium 139 mmol/L (137-145)
[2017-05-01] MEDS ORDERED: Potassium Replacement Protocol 1 EACH MISC MISCELLANE PRN ×2 (10:34→11:22)
[2017-05-01] MEDS ORDERED: Magnesium Replacement Protocol 1 EACH MISC MISCELLANE PRN (10:35)
[2017-05-01] MEDS ORDERED: HYDROcodone/APAP 5-325MG 1 EACH TAB PO PRN (11:34)
[2017-05-01] MEDS ORDERED: POTASSIUM CHLORIDE 10 MEQ in WATER FOR INJECTION 1 100ML.BAG IVPB SCH (12:00)
[2017-05-01] MEDS ORDERED: POTASSIUM CHLORIDE ORAL LIQUID 40 MEQ/30 ML CUP PO ONE (12:00)
[2017-05-01] MEDS ORDERED: LORazepam 0.5 MG TAB PO PRN (12:55)
[2017-05-01] MEDS ORDERED: LORazepam 0.5 MG TAB PO SCH (13:00)
[2017-05-01] MEDS ORDERED: DICYCLOMINE 10 MG CAP PO SCH (13:00)
--- NOTE | 2017-05-02 08:34 | DS ---
DISCHARGE SUMMARY FINAL DIAGNOSES: 1. Intractable nausea, vomiting, diarrhea, possible acute gastroenteritis. 2. EGD showing mild antral gastritis. 3. Normal colonoscopy status post biopsies. 4. Possible irritable bowel syndrome. 5. Hypertension. 6. Hyperlipidemia. 7. History of seizure disorder. 8. History of migraines. 10.History of appendectomy. 11.History of anxiety. 12.History of bipolar. 13.History of depression. 14.History of panic disorder. 15.Hiatal hernia. DISCHARGE DISPOSITION: The patient will be discharged in stable condition with guarded prognosis. Discharged cleared by Gastroenterology. HISTORY OF PRESENT ILLNESS: This 47-year-old woman with a past medical history of multiple medical problems was admitted with significant nausea, vomiting and EGD and colonoscopy done by Gastroenterology was unremarkable except some gastritis. Biopsies pending at this time. Potassium replaced. Patient improved significantly. The patient was discharged in stable condition with guarded prognosis with further plans for outpatient follow up closely with primary physician, Surgery and as well as Gastroenterology. The patient understands and agrees. EXAM: Vitals are stable. CARDIOVASCULAR: S1, S2. ABDOMEN: Soft, nontender. NERVOUS SYSTEM: No focal deficits. DISCHARGES ADVICE: Diet is cardiac, soft bland. MEDICATIONS: 1. Lipitor 40 mg q.h.s. 2. Butalbital APAP caffeine 1 tab p.o. daily p.r.n. 3. Bentyl 10 mg q.i.d. p.r.n. 4. Hydrocodone 5 mg q.6h p.r.n. 5. Ativan 0.5 mg q.8h p.r.n. 6. Protonix 40 mg daily. 7. Zonegran 200 mg p.o. b.i.d. Please send followup labs with Dr. Reece. MMGOVINDL / IJN: [id number] / SAMANTHA
[2017-05-02] MEDS ORDERED: PANTOPRAZOLE 40 MG TABLET PO SCH (09:00)
== END 2017-05-01 14:32 | disposition home or self-care (01) ==
LOC: EC 14:53 → 5MS5E 19:09
PROVIDERS: ADMIT Hospitalist; ATTEND Hospitalist
DX: R11.2 Nausea with vomiting, unspecified (principal); R19.7 Diarrhea, unspecified; K29.70 Gastritis, unspecified, without bleeding; K29.60 Other gastritis without bleeding; I10 Essential (primary) hypertension; E78.5 Hyperlipidemia, unspecified; G40.909 Epilepsy, unspecified, not intractable, without status epilepticus; G43.909 Migraine, unspecified, not intractable, without status migrainosus; F41.0 Panic disorder [episodic paroxysmal anxiety]; K44.9 Diaphragmatic hernia without obstruction or gangrene; F31.9 Bipolar disorder, unspecified; E87.6 Hypokalemia; K20.9 Esophagitis, unspecified; M54.2 Cervicalgia; M54.9 Dorsalgia, unspecified; G89.29 Other chronic pain; E03.9 Hypothyroidism, unspecified; K51.00 Ulcerative (chronic) pancolitis without complications; F17.210 Nicotine dependence, cigarettes, uncomplicated; Z87.19 Personal history of other diseases of the digestive system; Z79.899 Other long term (current) drug therapy; Z88.5 Allergy status to narcotic agent; Z88.0 Allergy status to penicillin; Z88.8 Allergy status to other drugs, medicaments and biological substances; Z88.6 Allergy status to analgesic agent; Z88.3 Allergy status to other anti-infective agents; Z91.02 Food additives allergy status; Z91.040 Latex allergy status; Z86.61 Personal history of infections of the central nervous system; Z90.710 Acquired absence of both cervix and uterus; Z82.49 Family history of ischemic heart disease and other diseases of the circulatory system; Z83.79 Family history of other diseases of the digestive system
CPT/HCPCS: 96376 ×3; 96361 ×3; 96366 ×3; 96375 ×2; 96365; 96372; 99285; 36415; 93005; 88305; 80053; 80048 ×3; 86255; 82150; 82550; 82553; 83690; 83735 ×2; 84484; 85025 ×4; 81003; 88342; 87324; 80306; 87502; 83516; 71046; 74018; 74176; 45380; 43239; G0378 ×4; J2250; J1170 ×5; J0500; J2405 ×4; J3480; J2001; J3010; J2704; C9113 ×3

== ENCOUNTER 2017-05-20 17:48 | Emergency (ER) | payer OTHER ==
[2017-05-20 17:55] VITALS: TEMP 96.8
[2017-05-20] MEDS ORDERED: SODIUM CHLORIDE 0.9% 1,000 ML IV STA (17:58)
[2017-05-20] MEDS ORDERED: FAMOTIDINE 20 MG/2 ML VIAL IV STA (17:58)
[2017-05-20] MEDS ORDERED: ONDANSETRON 4 MG/2 ML VIAL IVP STA ×2 (17:59→19:26)
--- NOTE | 2017-05-20 18:09 | ED ---
General Adult HPI - General Chief complaint: Seizure Stated complaint: N & V Seizure Time Seen by Provider: 05/20/17 17:51 Source: patient, EMS, RN notes reviewed Mode of arrival: EMS Limitations: no limitations - History of Present Illness Initial comments: 47-year-old female presents emergency department with chief complaint of nausea and vomiting. Patient states she has a history of absence seizures that she take medication for but she's been having more of these lately she's been unable to keep her seizure medication down. She states that she's been worked up with GI and they have not found a cause for the patient's symptoms. She states that she just needs nausea and vomiting. Patient denies any fever chills. She states exactly like her normal self. There is been no other symptoms and the patient at this time. She was concerned due to her continued nausea vomiting so she thought that she should be seen. Patient denies any recent fever, chills, shortness of breath, chest pain, back pain, abdominal pain , numbness or tingling, dysuria or hematuria, constipation or diarrhea, headaches or visual changes, or any other current symptoms. - Related Data Home Medications Medication Instructions Recorded Confirmed Zonisamide [Zonegran] 200 mg PO Q12HR 03/12/17 05/20/17 Atorvastatin [Lipitor] 40 mg PO HS 04/02/17 05/20/17 Previous Rx's Medication Instructions Recorded Ondansetron HCl [Zofran] 8 mg PO Q8H #20 tablet 05/20/17 Allergies Allergy/AdvReac Type Severity Reaction Status Date / Time gabapentin [From Neurontin] Allergy Itching Verified 05/20/17 18:18 latex Allergy Anaphylaxis Verified 05/20/17 18:18 naproxen [From Naprosyn] Allergy Anaphylaxis Verified 05/20/17 18:18 Penicillins Allergy Anaphylaxis Verified 05/20/17 18:18 quetiapine fumarate Allergy Itching, Verified 05/20/17 18:18 [From Seroquel] leg cramps rofecoxib [From Vioxx] Allergy Itching, Verified 05/20/17 18:18 leg cramps terfenadine [From Seldane] Allergy Rash/Hives Verified 05/20/17 18:18 tramadol Allergy Nausea & Verified 05/20/17 18:18 Vomiting/LEG CRAMPS/HEART FLUTTERS calcium carbonate [From DHEA] AdvReac Chest Pain Verified 05/20/17 18:18 calcium phosphate,dibasic AdvReac Chest Pain Verified 05/20/17 18:18 [From DHEA] clindamycin AdvReac muscle Verified 05/20/17 18:18 cramps clonidine AdvReac fast Verified 05/20/17 18:18 heartbeat, migraine dextromethorphan HBr AdvReac face/neck Verified 05/20/17 18:18 [From NyQuil] flushing diazepam [From Valium] AdvReac Nausea & Verified 05/20/17 18:18 Vomiting divalproex sodium AdvReac Nausea & Verified 05/20/17 18:18 [From Depakote] Vomiting doxylamine [From NyQuil] AdvReac face "beet Verified 05/20/17 18:18 red", elevated temp. ibuprofen [From Motrin] AdvReac abdominal Verified 05/20/17 18:18 & muscle cramps indomethacin [From Indocin] AdvReac Abdominal Verified 05/20/17 18:18 Pain,N/V ketorolac tromethamine AdvReac "built up Verified 05/20/17 18:18 [From Toradol] in system", had to be given something to reverse metoclopramide HCl AdvReac muscle Verified 05/20/17 18:18 [From Reglan] cramps prasterone (DHEA) [From DHEA] AdvReac Chest Pain Verified 05/20/17 18:18 prochlorperazine AdvReac leg Verified 05/20/17 18:18 [From Compazine] cramping propranolol AdvReac Chest Pain Verified 05/20/17 18:18 pseudoephedrine HCl AdvReac face "beet Verified 05/20/17 18:18 [From NyQuil] red", elevated temp. quetiapine [From Seroquel] AdvReac leg Verified 05/20/17 18:18 cramping sumatriptan [From Imitrex] AdvReac migrane Verified 05/20/17 18:18 sumatriptan succinate AdvReac migrane Verified 05/20/17 18:18 [From Imitrex] topiramate [From Topamax] AdvReac "built up Verified 05/20/17 18:18 in system", had to be given something to reverse trazodone AdvReac "built up Verified 05/20/17 18:18 in system", had to be given something to reverse zolpidem tartrate AdvReac "Became Verified 05/20/17 18:18 [From Ambien] violent with no memory" artificial sweetener AdvReac SEVERE Uncoded 04/02/17 16:49 MIGRAINE HEADACHE Review of Systems ROS Statement: Those systems with pertinent positive or pertinent negative responses have been documented in the HPI. ROS Other: All systems not noted in ROS Statement are negative. Past Medical History Past Medical History: Hyperlipidemia, Hypertension, Seizure Disorder, Thyroid Disorder Additional Past Medical History / Comment(s): Migraines, viral meningitis x3 as a child, 1995, 2000, chronic back pain, nerve blocks 08/2016 and 12/2016. 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 Bipolar, anxiety History of Any Multi-Drug Resistant Organisms: None Reported Past Surgical History: Appendectomy, Section, Cholecystectomy, Hernia Repair, Hysterectomy, Orthopedic Surgery, Tonsillectomy, Tubal Ligation Additional Past Surgical History / Comment(s): Hiatal Hernia, umbilical hernia repair, left rotator cuff repair, bilateral knee scopes, pain clinic procedures- occipital nerve block on 01/05/2017. Past Anesthesia/Blood Transfusion Reactions: No Reported Reaction Additional Past Anesthesia/Blood Transfusion Reaction / Comment(s): Claustrophobic Past Psychological History: Anxiety, Bipolar, Panic Disorder Smoking Status: Current some day smoker Past Alcohol Use History: Rare Past Drug Use History: None Reported - Past Family History Mother Family Medical History: Cancer, Dementia, Diabetes Mellitus, GERD/Reflux, Hyperlipidemia, Hypertension, Thyroid Disorder Additional Family Medical History / Comment(s): Quad CABG, cardiac stents, toes ampuated. Father History Unknown: Yes Family Medical History: No Reported History General Exam - General Exam Comments Initial Comments: General exam: Alert, active, comfortable in no apparent distress Head: Normocephalic Eyes: Normal reaction of pupils, equal size, normal range of extraocular motion Ears: normal external ear canals, pink tympanic membranes with normal cone of light Nose: clear with pink turbinates Throat: no erythema or exudates with normal sized tonsils Neck: no masses, no nuchal rigidity Chest: no chest wall deformity Lungs: equal air entry with no crackles or wheeze CVS: S1 and S2 normal with no audible mumurs, regular rhythm Abdomen: no hepatosplenomegaly, normal bowel sounds, no guarding or rigidity Spine: no scoliosis or deformity Skin: no rashes Neurological: No focal deficits, tone is normal in all 4 extremities Limitations: no limitations Course Vital Signs 05/20/17 17:52 Temperature 96.8 F L Pulse Rate 120 H Respiratory 20 Rate Blood Pressure 166/114 O2 Sat by Pulse 99 Oximetry Medical Decision Making - Medical Decision Making 47-year-old female diagnosed nausea and vomiting. At this time lab work is been reviewed. Does show some dehydration. This time patient's nausea and vomiting has improved. We did hydrate the patient. At this time we did discuss we will give her Zofran for home to help with the nausea. We discussed return for hours and follow-up and all questions. They that she understood and she is agreement this plan. All questions have been answered. She'll be discharged. - Lab Data Result diagrams: 05/20/17 18:40 05/20/17 18:40 Lab Results 05/20/17 05/20/17 Range/Units 18:40 18:40 WBC 8.4 (3.8-10.6) k/uL RBC 5.26 (3.80-5.40) m/uL Hgb 17.4 H D (11.4-16.0) gm/dL Hct 51.9 H (34.0-46.0) % MCV 98.7 (80.0-100.0) fL MCH 33.0 (25.0-35.0) pg MCHC 33.4 (31.0-37.0) g/dL RDW 13.3 (11.5-15.5) % Plt Count 288 (150-450) k/uL Neutrophils % 72 % Lymphocytes % 20 % Monocytes % 5 % Eosinophils % 0 % Basophils % 1 % Neutrophils # 6.1 (1.3-7.7) k/uL Lymphocytes # 1.7 (1.0-4.8) k/uL Monocytes # 0.4 (0-1.0) k/uL Eosinophils # 0.0 (0-0.7) k/uL Basophils # 0.1 (0-0.2) k/uL Sodium 138 (137-145) mmol/L Potassium 3.8 (3.5-5.1) mmol/L Chloride 102 (98-107) mmol/L Carbon Dioxide 22 (22-30) mmol/L Anion Gap 14 mmol/L BUN 13 (7-17) mg/dL Creatinine 0.68 (0.52-1.04) mg/dL Est GFR (MDRD) Af Amer >60 (>60 ml/min/1.73 sqM) Est GFR (MDRD) Non-Af >60 (>60 ml/min/1.73 sqM) Glucose 107 H (74-99) mg/dL Calcium 9.9 (8.4-10.2) mg/dL Total Bilirubin 0.6 (0.2-1.3) mg/dL AST 25 (14-36) U/L ALT 30 (9-52) U/L Alkaline Phosphatase 114 (38-126) U/L Total Protein 6.6 (6.3-8.2) g/dL Albumin 3.8 (3.5-5.0) g/dL Amylase 47 (30-110) U/L Lipase 74 (23-300) U/L - Radiology Data Radiology results: report reviewed, image reviewed Disposition Clinical Impression: Nausea & vomiting Disposition: HOME SELF-CARE Condition: Stable Instructions: Acute Nausea and Vomiting (ED) Additional Instructions: Please use medication as discussed. Please follow up with family doctor if symptoms have not improved over the next two days. Please return to the emergency room if your symptoms increase or worsen or for any other concerns. Prescriptions: Ondansetron HCl [Zofran] 8 mg PO Q8H #20 tablet Referrals: José Reece MD [Primary Care Provider] - 1-2 days Time of Disposition: 19:28
[2017-05-20 18:57] LABS: Basophils # (A) 0.1 k/uL (0-0.2); Basophils % (A) 1 %; Eosinophils % (A) 0 %; HCT 51.9 % (34.0-46.0); Lymphocytes # (A) 1.7 k/uL (1.0-4.8); Lymphocytes % (A) 20 %; MCHC 33.4 g/dL (31.0-37.0); MCV 98.7 fL (80.0-100.0); Mean Platelet Volume 8.6; Monocytes # (A) 0.4 k/uL (0-1.0); Monocytes % (A) 5 %; Neutrophils # (A) 6.1 k/uL (1.3-7.7); Neutrophils % (A) 72 %; Platelet Count 288 k/uL (150-450); RBC 5.26 m/uL (3.80-5.40); RDW 13.3 % (11.5-15.5); WBC 8.4 k/uL (3.8-10.6)
[2017-05-20 18:58] LABS: HGB 17.4 gm/dL (11.4-16.0)
[2017-05-20 19:06] LABS: ALT 30 U/L (9-52); AST 25 U/L (14-36); Albumin 3.8 g/dL (3.5-5.0); Alkaline Phosphatase 114 U/L (38-126); Amylase 47 U/L (30-110); Anion Gap 14 mmol/L; Blood Urea Nitrogen 13 mg/dL (7-17); Calcium 9.9 mg/dL (8.4-10.2); Carbon Dioxide 22 mmol/L (22-30); Chloride 102 mmol/L (98-107); Glucose 107 mg/dL (74-99); Lipase 74 U/L (23-300); Potassium 3.8 mmol/L (3.5-5.1); Sodium 138 mmol/L (137-145); Total Bilirubin 0.6 mg/dL (0.2-1.3); Total Protein 6.6 g/dL (6.3-8.2)
--- NOTE | 2017-05-20 19:18 | XR ---
EXAMINATION TYPE: XR abdomen 2V DATE OF EXAM: 05/20/2017 COMPARISON: 04/28/2017 HISTORY: Abdominal pain TECHNIQUE: 2 views FINDINGS: There is no sign of intestinal obstruction or pneumoperitoneum. Fecal pattern is normal. Th ere are clips from cholecystectomy. There is no sign of a mass. There are no pathologic calcification s over the kidneys. IMPRESSION: Nonacute abdomen. No change.
[2017-05-20 20:33] VITALS: BP 174/81; PULSE 95; RESP 18
== END 2017-05-20 20:32 | disposition home or self-care (01) ==
LOC: EC 17:48
DX: R11.2 Nausea with vomiting, unspecified (principal); E86.0 Dehydration; G40.909 Epilepsy, unspecified, not intractable, without status epilepticus; I10 Essential (primary) hypertension; E78.5 Hyperlipidemia, unspecified; F17.200 Nicotine dependence, unspecified, uncomplicated; Z90.49 Acquired absence of other specified parts of digestive tract; Z88.0 Allergy status to penicillin; Z88.1 Allergy status to other antibiotic agents; Z88.5 Allergy status to narcotic agent; Z88.6 Allergy status to analgesic agent; Z88.8 Allergy status to other drugs, medicaments and biological substances; Z91.040 Latex allergy status; Z91.048 Other nonmedicinal substance allergy status; Z79.899 Other long term (current) drug therapy
CPT/HCPCS: 99284; 96374; 96376; 96361; 36415; 80053; 82150; 83690; 85025; 74019; J2405

== ENCOUNTER 2017-06-04 14:47 | Inpatient (IN) | payer OTHER ==
[2017-06-04] MEDS ORDERED: ONDANSETRON 4 MG/2 ML VIAL IVP STA (15:58)
[2017-06-04] MEDS ORDERED: SODIUM CHLORIDE 0.9% 500 ML IV STA (15:58)
[2017-06-04] MEDS ORDERED: MORPHINE SULFATE 4 MG/ML SYRINGE IV STA (15:58)
[2017-06-04] MEDS ORDERED: SODIUM CHLORIDE 0.9% 1,000 ML IV STA ×2 (15:58)
[2017-06-04] MEDS ORDERED: ONDANSETRON 4 MG/2 ML VIAL IVP PRN (15:58)
[2017-06-04] MEDS ORDERED: LABETALOL 5 MG/ML VIAL MDV IVP STA ×2 (16:02→20:18)
--- NOTE | 2017-06-04 16:02 | ED ---
General Adult HPI - General Chief complaint: Neuro Symptoms/Deficit Stated complaint: Numbness Time Seen by Provider: 06/04/17 15:41 Source: patient, RN notes reviewed, old records reviewed Mode of arrival: wheelchair Limitations: no limitations - History of Present Illness Initial comments: This is a 47-year-old female the ER for evaluation of multiple nonspecific complaints. Significant weakness or middle back down. Inability to ambulate, no recent bowel movements, multiple neurological issues. Patient is seen in consult with neurologist. Patient sent to ER for further evaluation regarding possible causes and outcomes. No recent change in medications. Patient states that she has nausea she has back pain she has leg pain she has foot pain. No bowel or bladder issues, no incontinence. - Related Data Home Medications Medication Instructions Recorded Confirmed Atorvastatin [Lipitor] 40 mg PO HS 04/02/17 06/04/17 Lacosamide [Vimpat] 100 mg PO BID 06/04/17 06/04/17 Ondansetron HCl [Zofran] 8 mg PO Q8H PRN 06/04/17 06/04/17 Allergies Allergy/AdvReac Type Severity Reaction Status Date / Time gabapentin [From Neurontin] Allergy Itching Verified 06/04/17 15:37 latex Allergy Anaphylaxis Verified 06/04/17 15:37 naproxen [From Naprosyn] Allergy Anaphylaxis Verified 06/04/17 15:37 Penicillins Allergy Anaphylaxis Verified 06/04/17 15:37 quetiapine fumarate Allergy Itching, Verified 06/04/17 15:37 [From Seroquel] leg cramps rofecoxib [From Vioxx] Allergy Itching, Verified 06/04/17 15:37 leg cramps terfenadine [From Seldane] Allergy Rash/Hives Verified 06/04/17 15:37 tramadol Allergy Nausea & Verified 06/04/17 15:37 Vomiting/LEG CRAMPS/HEART FLUTTERS calcium carbonate [From DHEA] AdvReac Chest Pain Verified 06/04/17 15:37 calcium phosphate,dibasic AdvReac Chest Pain Verified 06/04/17 15:37 [From DHEA] clindamycin AdvReac muscle Verified 06/04/17 15:37 cramps clonidine AdvReac fast Verified 06/04/17 15:37 heartbeat, migraine dextromethorphan HBr AdvReac face/neck Verified 06/04/17 15:37 [From NyQuil] flushing diazepam [From Valium] AdvReac Nausea & Verified 06/04/17 15:37 Vomiting divalproex sodium AdvReac Nausea & Verified 06/04/17 15:37 [From Depakote] Vomiting doxylamine [From NyQuil] AdvReac face "beet Verified 06/04/17 15:37 red", elevated temp. ibuprofen [From Motrin] AdvReac abdominal Verified 06/04/17 15:37 & muscle cramps indomethacin [From Indocin] AdvReac Abdominal Verified 06/04/17 15:37 Pain,N/V ketorolac tromethamine AdvReac "built up Verified 06/04/17 15:37 [From Toradol] in system", had to be given something to reverse metoclopramide HCl AdvReac muscle Verified 06/04/17 15:37 [From Reglan] cramps prasterone (DHEA) [From DHEA] AdvReac Chest Pain Verified 06/04/17 15:37 prochlorperazine AdvReac leg Verified 06/04/17 15:37 [From Compazine] cramping propranolol AdvReac Chest Pain Verified 06/04/17 15:37 pseudoephedrine HCl AdvReac face "beet Verified 06/04/17 15:37 [From NyQuil] red", elevated temp. quetiapine [From Seroquel] AdvReac leg Verified 06/04/17 15:37 cramping sumatriptan [From Imitrex] AdvReac migrane Verified 06/04/17 15:37 sumatriptan succinate AdvReac migrane Verified 06/04/17 15:37 [From Imitrex] topiramate [From Topamax] AdvReac "built up Verified 06/04/17 15:37 in system", had to be given something to reverse trazodone AdvReac "built up Verified 06/04/17 15:37 in system", had to be given something to reverse zolpidem tartrate AdvReac "Became Verified 06/04/17 15:37 [From Ambien] violent with no memory" artificial sweetener AdvReac SEVERE Uncoded 04/02/17 16:49 MIGRAINE HEADACHE Review of Systems ROS Statement: Those systems with pertinent positive or pertinent negative responses have been documented in the HPI. ROS Other: All systems not noted in ROS Statement are negative. Past Medical History Past Medical History: Hyperlipidemia, Hypertension, Seizure Disorder, Thyroid Disorder Additional Past Medical History / Comment(s): Migraines, viral meningitis x3 as a child, 1995, 2000, chronic back pain, nerve blocks 08/2016 and 12/2016. 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 Bipolar, anxiety History of Any Multi-Drug Resistant Organisms: None Reported Past Surgical History: Appendectomy, Section, Cholecystectomy, Hernia Repair, Hysterectomy, Orthopedic Surgery, Tonsillectomy, Tubal Ligation Additional Past Surgical History / Comment(s): Hiatal Hernia, umbilical hernia repair, left rotator cuff repair, bilateral knee scopes, pain clinic procedures- occipital nerve block on 01/05/2017. Past Anesthesia/Blood Transfusion Reactions: No Reported Reaction Additional Past Anesthesia/Blood Transfusion Reaction / Comment(s): Claustrophobic Past Psychological History: Anxiety, Bipolar, Panic Disorder Smoking Status: Current some day smoker Past Alcohol Use History: Rare Past Drug Use History: None Reported - Past Family History Mother Family Medical History: Cancer, Dementia, Diabetes Mellitus, GERD/Reflux, Hyperlipidemia, Hypertension, Thyroid Disorder Additional Family Medical History / Comment(s): Quad CABG, cardiac stents, toes ampuated. Father History Unknown: Yes Family Medical History: No Reported History General Exam Limitations: no limitations General appearance: alert, in no apparent distress, anxious Head exam: Present: atraumatic, normocephalic, normal inspection Eye exam: Present: normal appearance, PERRL, EOMI. Absent: scleral icterus, conjunctival injection, periorbital swelling ENT exam: Present: normal exam, mucous membranes dry Neck exam: Present: normal inspection. Absent: tenderness, meningismus, lymphadenopathy Respiratory exam: Present: normal lung sounds bilaterally. Absent: respiratory distress, wheezes, rales, rhonchi, stridor Cardiovascular Exam: Present: normal rhythm, tachycardia, normal heart sounds. Absent: systolic murmur, diastolic murmur, rubs, gallop, clicks GI/Abdominal exam: Present: soft, normal bowel sounds. Absent: distended, tenderness, guarding, rebound, rigid Extremities exam: Present: normal inspection, full ROM, normal capillary refill. Absent: tenderness, pedal edema, joint swelling, calf tenderness Back exam: Present: normal inspection Neurological exam: Present: alert, oriented X3, CN II-XII intact Psychiatric exam: Present: normal affect, normal mood Skin exam: Present: warm, dry, intact, normal color. Absent: rash Course Vital Signs 06/04/17 06/04/17 06/04/17 14:50 16:20 17:00 Temperature 98 F Pulse Rate 140 H 107 H 100 Respiratory 20 16 16 Rate Blood Pressure 176/127 182/125 133/93 O2 Sat by Pulse 98 97 95 Oximetry 06/04/17 18:00 Temperature Pulse Rate 110 H Respiratory 18 Rate Blood Pressure 168/119 O2 Sat by Pulse 98 Oximetry - Reevaluation(s) Reevaluation #1: 06/04/17 16:01 Patient's outpatient testing requests are reviewed EKG Findings - EKG Comments: EKG Findings:: EKG shows sinus tachycardia rate 140, MD 126, QRS 66, QTc 445 Medical Decision Making - Medical Decision Making 47 female the ER for evaluation of back pain with significant lower Shorty paralysis. 2 weeks of symptoms. Patient be admitted for neurological evaluation and consult, MRI of brain C-spine and lower lumbar spine - Lab Data Result diagrams: 06/04/17 15:15 06/04/17 15:15 Lab Results 06/04/17 06/04/17 06/04/17 Range/Units 15:15 15:15 15:15 WBC (3.8-10.6) k/uL RBC (3.80-5.40) m/uL Hgb (11.4-16.0) gm/dL Hct (34.0-46.0) % MCV (80.0-100.0) fL MCH (25.0-35.0) pg MCHC (31.0-37.0) g/dL RDW (11.5-15.5) % Plt Count (150-450) k/uL Neutrophils % % Lymphocytes % % Monocytes % % Eosinophils % % Basophils % % Neutrophils # (1.3-7.7) k/uL Lymphocytes # (1.0-4.8) k/uL Monocytes # (0-1.0) k/uL Eosinophils # (0-0.7) k/uL Basophils # (0-0.2) k/uL PT (9.0-12.0) sec INR (<1.2) APTT (22.0-30.0) sec D-Dimer (<0.60) mg/L FEU Sodium 142 (137-145) mmol/L Potassium 4.2 (3.5-5.1) mmol/L Chloride 102 (98-107) mmol/L Carbon Dioxide 26 (22-30) mmol/L Anion Gap 14 mmol/L BUN 10 (7-17) mg/dL Creatinine 0.60 (0.52-1.04) mg/dL Est GFR (MDRD) Af Amer >60 (>60 ml/min/1.73 sqM) Est GFR (MDRD) Non-Af >60 (>60 ml/min/1.73 sqM) Glucose 115 H (74-99) mg/dL Calcium 9.6 (8.4-10.2) mg/dL Ionized Calcium Holly 4.9 (4.5-5.3) mg/dL Phosphorus 4.3 (2.5-4.5) mg/dL Magnesium 2.0 (1.6-2.3) mg/dL Total Bilirubin 0.4 (0.2-1.3) mg/dL AST 37 H (14-36) U/L ALT 31 (9-52) U/L Alkaline Phosphatase 102 (38-126) U/L Total Creatine Kinase 25 L (30-135) U/L CK-MB (CK-2) <0.2 (0.0-2.4) ng/mL CK-MB (CK-2) Rel Index Troponin I <0.012 (0.000-0.034) ng/mL NT-Pro-B Natriuret Pep 675 pg/mL Total Protein 6.5 (6.3-8.2) g/dL Albumin 3.8 (3.5-5.0) g/dL TSH 1.010 (0.465-4.680) mIU/L 06/04/17 06/04/17 Range/Units 15:15 15:15 WBC 9.6 (3.8-10.6) k/uL RBC 4.30 (3.80-5.40) m/uL Hgb 14.3 D (11.4-16.0) gm/dL Hct 43.2 (34.0-46.0) % MCV 100.4 H (80.0-100.0) fL MCH 33.2 (25.0-35.0) pg MCHC 33.1 (31.0-37.0) g/dL RDW 13.8 (11.5-15.5) % Plt Count 287 (150-450) k/uL Neutrophils % 74 % Lymphocytes % 19 % Monocytes % 5 % Eosinophils % 1 % Basophils % 0 % Neutrophils # 7.1 (1.3-7.7) k/uL Lymphocytes # 1.8 (1.0-4.8) k/uL Monocytes # 0.5 (0-1.0) k/uL Eosinophils # 0.1 (0-0.7) k/uL Basophils # 0.0 (0-0.2) k/uL PT 9.4 (9.0-12.0) sec INR 0.9 (<1.2) APTT 23.1 (22.0-30.0) sec D-Dimer 0.82 H (<0.60) mg/L FEU Sodium (137-145) mmol/L Potassium (3.5-5.1) mmol/L Chloride (98-107) mmol/L Carbon Dioxide (22-30) mmol/L Anion Gap mmol/L BUN (7-17) mg/dL Creatinine (0.52-1.04) mg/dL Est GFR (MDRD) Af Amer (>60 ml/min/1.73 sqM) Est GFR (MDRD) Non-Af (>60 ml/min/1.73 sqM) Glucose (74-99) mg/dL Calcium (8.4-10.2) mg/dL Ionized Calcium Holly (4.5-5.3) mg/dL Phosphorus (2.5-4.5) mg/dL Magnesium (1.6-2.3) mg/dL Total Bilirubin (0.2-1.3) mg/dL AST (14-36) U/L ALT (9-52) U/L Alkaline Phosphatase (38-126) U/L Total Creatine Kinase (30-135) U/L CK-MB (CK-2) (0.0-2.4) ng/mL CK-MB (CK-2) Rel Index Troponin I (0.000-0.034) ng/mL NT-Pro-B Natriuret Pep pg/mL Total Protein (6.3-8.2) g/dL Albumin (3.5-5.0) g/dL TSH (0.465-4.680) mIU/L Disposition Clinical Impression: Intractable low back pain, Paralysis of both lower limbs Disposition: ADMITTED IP TO THIS [facility] Condition: Serious Referrals: José Reece MD [Primary Care Provider] - 1-2 days
[2017-06-04 16:22] LABS: Ionized Calcium 4.9 mg/dL (4.5-5.3)
[2017-06-04 16:32] LABS: ALT 31 U/L (9-52); AST 37 U/L (14-36); Albumin 3.8 g/dL (3.5-5.0); Alkaline Phosphatase 102 U/L (38-126); Anion Gap 14 mmol/L; Blood Urea Nitrogen 10 mg/dL (7-17); Calcium 9.6 mg/dL (8.4-10.2); Carbon Dioxide 26 mmol/L (22-30); Chloride 102 mmol/L (98-107); D-Dimer 0.82 mg/L FEU (<0.60); Glucose 115 mg/dL (74-99); INR 0.9 (<1.2); Partial Thromboplastin Time 23.1 sec (22.0-30.0); Phosphorus 4.3 mg/dL (2.5-4.5); Potassium 4.2 mmol/L (3.5-5.1); Prothrombin Time 9.4 sec (9.0-12.0); Sodium 142 mmol/L (137-145); Total Bilirubin 0.4 mg/dL (0.2-1.3); Total Protein 6.5 g/dL (6.3-8.2)
[2017-06-04 16:44] LABS: Creatine Kinase 25 U/L (30-135)
[2017-06-04 16:47] LABS: Basophils % (A) 0 %; Eosinophils # (A) 0.1 k/uL (0-0.7); Eosinophils % (A) 1 %; HCT 43.2 % (34.0-46.0); Lymphocytes # (A) 1.8 k/uL (1.0-4.8); Lymphocytes % (A) 19 %; MCH 33.2 pg (25.0-35.0); MCHC 33.1 g/dL (31.0-37.0); MCV 100.4 fL (80.0-100.0); Mean Platelet Volume 8.6; Monocytes # (A) 0.5 k/uL (0-1.0); Monocytes % (A) 5 %; Neutrophils # (A) 7.1 k/uL (1.3-7.7); Neutrophils % (A) 74 %; Platelet Count 287 k/uL (150-450); RDW 13.8 % (11.5-15.5); WBC 9.6 k/uL (3.8-10.6)
[2017-06-04 16:49] LABS: HGB 14.3 gm/dL (11.4-16.0)
[2017-06-04 16:57] LABS: Creatine Kinase MB <0.2 ng/mL (0.0-2.4); Troponin I <0.012 ng/mL (0.000-0.034)
[2017-06-04] MEDS: MORPHINE SULFATE 4 MG/ML SYRINGE IVP PRN ×2 (19:19→23:42)
[2017-06-04 20:21] LABS: Appearance,Urine Clear (Clear); Bilirubin,Urine Negative (Negative); Blood,Urine Negative (Negative); Color,Urine Light Yellow; Glucose,Urine (UA) Negative (Negative); Ketones,Urine Negative (Negative); Leukocyte Esterase,Urine Negative (Negative); PH, Urine 6.5 (5.0-8.0); Protein,Urine Negative (Negative); Specific Gravity,Urine 1.006 (1.001-1.035); Urobilinogen,Urine <2.0 mg/dL (<2.0)
[2017-06-04 21:17] LABS: Glucose,Whole Blood 100 mg/dL (75-99)
[2017-06-04] MEDS: METOPROLOL TARTRATE 50 MG TAB PO SCH (21:46)
[2017-06-04] MEDS: SODIUM CHLORIDE 0.9% 1,000 ML IV SCH (21:47)
--- NOTE | 2017-06-04 23:36 | P.CNNES ---
History of Present Illness Consult date: 06/04/17 Reason for Consult: Patient admitted with bilateral paraparesis and back pain. History of Present Illness: This ICU consultation was notified to Dr. Leslie Rdz at 10:30 PM on 06/04/2017 by the ICU nurse taking care of this patient in the ICU this evening. This patient is a 47-year-old right-handed white female who was brought to the emergency room for evaluation of multiple complaints. Patient told ER physician Dr. An earlier today at about 15:41 that she had difficulty with ambulation and bilateral leg weakness. She was brought to the ER in a wheelchair. Apparently over the past 3 weeks she has been showing progressive weakness in both lower extremities. It was very severe today to the point that she decided to come to the emergency room for further evaluation. She apparently did not see her regular neurologist 3 weeks ago and due to the severity of her weakness today decided to come to the emergency room. There is been no recent changes in any of her home medications. She has a history of seizure disorder for which she is taking Vimpat. Apparently over the last 3 weeks she has progressively become paraparetic in the lower extremities and unable to stand. She is unable to get up out of a chair. Her has been carrying her to the bathroom and into other areas of the home as needed at home for the past 3 weeks. She is been complaining of upper thoracic back pain over the last 3 weeks. She apparently has also been expressing urinary incontinence. She has a history of chronic low back pain and has undergone epidural injections to the back in August and December of last year. These were not of much help for her chronic pain symptoms. She was seen in the ER by and was advised admission to the hospital for further evaluation. MRI of the brain, cervical spine, and lumbar spine have been ordered. These MRIs are to be done tomorrow. The patient states that her back pain symptoms and lack of feeling extends up into the upper thoracic level. She was admitted to the intensive care unit today for further evaluation. On examination in the ICU this evening patient states that she has sensory loss up to the level of T8/ T10 where she cannot appreciate light touch or pinprick. Neurological examination also reveals the patient to be areflexic in the lower extremities. She states that her symptoms of numbness and weakness began in the lower extremities in the feet and seemed to progress up the legs and into the pelvic and thoracic levels. She does seem to suggest that the symptoms have been progressing upwards initially distally and now proximally up to the level of the thoracic spine at about T8/T10. The patient states that she has undergone extensive evaluation last year for headaches and possible MS. Her last MRI of the brain was done on 11/08/2016 which only revealed mild inflammatory changes in the sinuses. She also underwent lumbar puncture last year which was essentially negative for any evidence for MS. She had MRI of the lumbar spine on 11/28/2014 which revealed degenerative disc disease at L2-L3 level with no evidence of spinal stenosis at that time. The patient denies any trauma to her back or spine region due to any fall. 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 This is been the cause of much of her recurrent back pain symptoms over the years. The patient also mentions that she underwent an EMG study 3 months ago which revealed her to have neuropathy in the left lower extremity and the right arm. Given this patient's areflexia as well as ascending weakness we have recommended that she undergo a lumbar puncture to rule out acute Guillain-Cárdenas syndrome. We would recommend MRI of the thoracic spine be done as her sensory level comes up to the T8/T10 level on examination. Pending the results of her lumbar puncture and MRI testing further recommendations will be given. Patient should be monitored closely in the intensive care unit until all studies have been completed and evaluated. This case was discussed at length with the patient. She understands her differential diagnoses clearly. We will proceed with our workup and will reevaluate the patient as soon as the test results become available tomorrow. Her overall prognosis at this time remains very guarded. Review of Systems Constitutional: Denies chills, Denies fever Eyes: denies blurred vision, denies pain Ears, nose, mouth and throat: Denies headache, Denies sore throat Cardiovascular: Denies chest pain, Denies shortness of breath Respiratory: Denies cough Gastrointestinal: Denies abdominal pain, Denies diarrhea, Denies nausea, Denies vomiting Genitourinary: Denies dysuria, Denies hematuria Musculoskeletal: Denies myalgias Integumentary: Denies pruritus, Denies rash Neurological: Reports lack of coordination, Reports paresthesias, Reports transient paralysis, Denies numbness, Denies weakness Psychiatric: Denies anxiety, Denies depression Endocrine: Denies fatigue, Denies weight change Past Medical History Past Medical History: Hyperlipidemia, Seizure Disorder Additional Past Medical History / Comment(s): Migraines, viral meningitis x3 as a child, 1995, 2000, chronic back pain, nerve blocks 08/2016 and 12/2016. 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 Bipolar, anxiety History of Any Multi-Drug Resistant Organisms: None Reported Past Surgical History: Appendectomy, Section, Cholecystectomy, Hernia Repair, Hysterectomy, Orthopedic Surgery, Tonsillectomy, Tubal Ligation Additional Past Surgical History / Comment(s): Hiatal Hernia, umbilical hernia repair, left rotator cuff repair, bilateral knee scopes, pain clinic procedures- occipital nerve block on 01/05/2017. Past Anesthesia/Blood Transfusion Reactions: No Reported Reaction Additional Past Anesthesia/Blood Transfusion Reaction / Comment(s): Claustrophobic Past Psychological History: Anxiety, Bipolar, Panic Disorder Additional Psychological History / Comment(s): . Smoking Status: Former smoker Past Alcohol Use History: Rare Additional Past Alcohol Use History / Comment(s): . Past Drug Use History: None Reported - Past Family History Mother Family Medical History: Cancer, Dementia, Diabetes Mellitus, GERD/Reflux, Hyperlipidemia, Hypertension, Thyroid Disorder Additional Family Medical History / Comment(s): Quad CABG, cardiac stents, toes ampuated. Father History Unknown: Yes Family Medical History: No Reported History Medications and Allergies Home Medications Medication Instructions Recorded Confirmed Type Atorvastatin [Lipitor] 40 mg PO HS 04/02/17 06/04/17 History Acetaminophen-Codeine 300-30mg 1 tab PO Q4H PRN 06/04/17 06/04/17 History [Tylenol w/codeine #3] Butalb/Acetaminophen/Caffeine 1 each PO Q4H PRN 06/04/17 06/04/17 History [Fioricet 50-325-40] Lacosamide [Vimpat] 100 mg PO BID 06/04/17 06/04/17 History Ondansetron HCl [Zofran] 8 mg PO Q8H PRN 06/04/17 06/04/17 History Allergies Allergy/AdvReac Type Severity Reaction Status Date / Time gabapentin [From Neurontin] Allergy Itching Verified 06/04/17 15:37 latex Allergy Anaphylaxis Verified 06/04/17 15:37 naproxen [From Naprosyn] Allergy Anaphylaxis Verified 06/04/17 15:37 Penicillins Allergy Anaphylaxis Verified 06/04/17 15:37 quetiapine fumarate Allergy Itching, Verified 06/04/17 15:37 [From Seroquel] leg cramps rofecoxib [From Vioxx] Allergy Itching, Verified 06/04/17 15:37 leg cramps terfenadine [From Seldane] Allergy Rash/Hives Verified 06/04/17 15:37 tramadol Allergy Nausea & Verified 06/04/17 15:37 Vomiting/LEG CRAMPS/HEART FLUTTERS calcium carbonate [From DHEA] AdvReac Chest Pain Verified 06/04/17 15:37 calcium phosphate,dibasic AdvReac Chest Pain Verified 06/04/17 15:37 [From DHEA] clindamycin AdvReac muscle Verified 06/04/17 15:37 cramps clonidine AdvReac fast Verified 06/04/17 15:37 heartbeat, migraine dextromethorphan HBr AdvReac face/neck Verified 06/04/17 15:37 [From NyQuil] flushing diazepam [From Valium] AdvReac Nausea & Verified 06/04/17 15:37 Vomiting divalproex sodium AdvReac Nausea & Verified 06/04/17 15:37 [From Depakote] Vomiting doxylamine [From NyQuil] AdvReac face "beet Verified 06/04/17 15:37 red", elevated temp. ibuprofen [From Motrin] AdvReac abdominal Verified 06/04/17 15:37 & muscle cramps indomethacin [From Indocin] AdvReac Abdominal Verified 06/04/17 15:37 Pain,N/V ketorolac tromethamine AdvReac "built up Verified 06/04/17 15:37 [From Toradol] in system", had to be given something to reverse metoclopramide HCl AdvReac muscle Verified 06/04/17 15:37 [From Reglan] cramps prasterone (DHEA) [From DHEA] AdvReac Chest Pain Verified 06/04/17 15:37 prochlorperazine AdvReac leg Verified 06/04/17 15:37 [From Compazine] cramping propranolol AdvReac Chest Pain Verified 06/04/17 15:37 pseudoephedrine HCl AdvReac face "beet Verified 06/04/17 15:37 [From NyQuil] red", elevated temp. quetiapine [From Seroquel] AdvReac leg Verified 06/04/17 15:37 cramping sumatriptan [From Imitrex] AdvReac migrane Verified 06/04/17 15:37 sumatriptan succinate AdvReac migrane Verified 06/04/17 15:37 [From Imitrex] topiramate [From Topamax] AdvReac "built up Verified 06/04/17 15:37 in system", had to be given something to reverse trazodone AdvReac "built up Verified 06/04/17 15:37 in system", had to be given something to reverse zolpidem tartrate AdvReac "Became Verified 06/04/17 15:37 [From Ambien] violent with no memory" artificial sweetener AdvReac SEVERE Uncoded 04/02/17 16:49 MIGRAINE HEADACHE Physical Examination - Vital Signs Vital Signs: Vital Signs Temp Pulse Resp BP Pulse Ox 06/04/17 20:55 98.7 F 101 H 18 149/107 97 06/04/17 20:40 102 H 165/102 06/04/17 20:14 120 H 154/113 06/04/17 20:09 124 H 21 166/116 96 06/04/17 19:00 117 H 16 183/130 98 06/04/17 18:00 110 H 18 168/119 98 06/04/17 17:00 100 16 133/93 95 06/04/17 16:20 107 H 16 182/125 97 06/04/17 14:50 98 F 140 H 20 176/127 98 Intake and Output 06/04/17 06/04/17 06/05/17 14:59 22:59 06:59 Intake Total 100 Balance 100 Intake: IV 100 Sodium Chloride 0.9% 1, 100 000 ml @ 100 mls/hr IV . Q10H STA Rx#:[id number] Other: Weight 71.668 kg Patient Weight 06/05/17 06:59 Weight 71.668 kg - Constitutional General appearance: average body habitus, cooperative - EENT EENT: PERRL, mucous membranes moist - Respiratory Respiratory: lungs clear, normal breath sounds - Cardiovascular Cardiovascular: regular rate, normal S1, normal S2 Extremities: no peripheral edema bilaterally - Gastrointestinal Gastrointestinal: normoactive bowel sounds - Integumentary Integumentary: normal - Neurologic Cranial nerve examination: PERRL, EOMI, VFF, V1/V2/V3 grossly intact, face symmetric, tongue midline, intact gag reflex, intact corneal reflex, normal palatal elevation Speech examination: intact Sensorimotor examination: hemiparesis (Patient has bilateral paraparesis in the lower extremities. 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 She has a sensory level at T8/T10.) Reflexes: 0: ankle, knee, 1+: bicep, tricep Cerebellar examination: ataxia, other (Patient has evidence of dysmetria in both lower extremities with attempt to raise her legs off the bed.) - Musculoskeletal Musculoskeletal: other (Patient has bilateral paraparesis with sensory level at T8/T10.) - Psychiatric Psychiatric: mood/affect appropriate, cooperative Results - Laboratory Findings CBC and BMP: 06/04/17 15:15 06/04/17 15:15 Abnormal Lab Findings: Abnormal Labs 06/04/17 06/04/17 06/04/17 15:15 15:15 15:15 MCV 100.4 H D-Dimer Glucose 115 H POC Glucose (mg/dL) AST 37 H Total Creatine Kinase 25 L 06/04/17 06/04/17 15:15 21:14 MCV D-Dimer 0.82 H Glucose POC Glucose (mg/dL) 100 H AST Total Creatine Kinase Assessment and Plan (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 Current Visit: Yes Status: Acute Code(s): G61.0 - GUILLAIN-BARRE SYNDROME SNOMED Code(s): 542750029 (2) Paraparesis of both lower limbs Current Visit: Yes Status: Acute Code(s): G82.20 - PARAPLEGIA, UNSPECIFIED SNOMED Code(s): 2524998 (3) Acute exacerbation of chronic low back pain Current Visit: No Status: Acute Code(s): M54.5 - LOW BACK PAIN SNOMED Code (s): 061259918 (4) Seizure disorder Current Visit: Yes Status: Acute Code(s): G40.909 - EPILEPSY, UNSP, NOT INTRACTABLE, WITHOUT STATUS EPILEPTICUS SNOMED Code(s): 270578364 Plan: This patient is a 47-year-old right-handed white female admitted to the intensive care unit today with worsening symptoms of bilateral lower extremity paraparesis and weakness. Patient's symptoms began 3 weeks ago at home and has progressed to the point that she is unable to walk. Her has been caring her at home for the last 2 weeks. She has not sought out any follow-up with her regular neurologist until today when she was recommended to go immediately to the emergency room. Patient was seen in the ER by Dr. An and was suddenly admitted to the intensive care unit. Her neurological examination in the ICU this evening suggest possibility of acute Guillain-Cárdenas syndrome. We have recommended she undergo a lumbar puncture tomorrow morning for further evaluation. She is scheduled to undergo MRI studies of the brain and entire cervical thoracic and lumbar spine tomorrow. We'll await those test results and we'll give further recommendations. Patient does seem to have a sensory level extending up to T8/T10 level on examination today in the ICU. She is areflexic in the lower extremities. She has significant weakness in both lower extremities which has been progressive. We have discussed the differential diagnosis today with the patient in detail. All of her questions were answered. We will give further recommendations depending on her test results tomorrow. Her overall prognosis at this time remains very guarded. She should be closely monitored in the intensive care unit with attention to her respiratory status as well. As noted this consultation was notified to Dr. Yeimy Rdz at 10:30 PM on 06/04/2017. Patient apparently was only admitted into the intensive care unit 1 hour prior. We will requires close neuro checks on this patient in the intensive care unit. This was discussed at length with her ICU nurse today in detail. We will continue to monitor progress Alonso closely during this admission in the intensive care unit. As noted her overall prognosis at this time remains very guarded. Time with Patient: Greater than 30
[2017-06-04] MEDS: ATORVASTATIN 40 MG TAB PO SCH (23:42)
[2017-06-04] MEDS: LACOSAMIDE 50 MG TABLET PO SCH (23:55)
[2017-06-04] MEDS: hydrALAZINE HCL 20 MG/ML 1 ML VIAL IVP PRN (23:55)
[2017-06-05] MEDS: HYDROcodone/APAP 5-325MG 1 EACH TAB PO PRN ×4 (01:15→21:17)
[2017-06-05 01:50] VITALS: BMI 28.0
[2017-06-05] MEDS: BACLOFEN 10 MG TAB PO PRN ×2 (03:12→23:20)
[2017-06-05 04:42] LABS: Basophils % (A) 1 %; Eosinophils # (A) 0.1 k/uL (0-0.7); Eosinophils % (A) 1 %; HCT 38.2 % (34.0-46.0); HGB 12.2 gm/dL (11.4-16.0); Lymphocytes # (A) 2.3 k/uL (1.0-4.8); Lymphocytes % (A) 30 %; MCH 33.1 pg (25.0-35.0); MCHC 32.1 g/dL (31.0-37.0); MCV 103.1 fL (80.0-100.0); Macrocytosis Slight; Monocytes # (A) 0.5 k/uL (0-1.0); Monocytes % (A) 6 %; Neutrophils # (A) 4.7 k/uL (1.3-7.7); Neutrophils % (A) 60 %; Platelet Count 261 k/uL (150-450); WBC 7.7 k/uL (3.8-10.6)
[2017-06-05 04:47] LABS: ALT 42 U/L (9-52); AST 42 U/L (14-36); Alkaline Phosphatase 86 U/L (38-126); Anion Gap 7 mmol/L; Blood Urea Nitrogen 10 mg/dL (7-17); Calcium 9.1 mg/dL (8.4-10.2); Carbon Dioxide 27 mmol/L (22-30); Chloride 105 mmol/L (98-107); Creatine Kinase 21 U/L (30-135); Glucose 107 mg/dL (74-99); Phosphorus 4.9 mg/dL (2.5-4.5); Potassium 4.6 mmol/L (3.5-5.1); Sodium 139 mmol/L (137-145); Total Bilirubin 0.3 mg/dL (0.2-1.3); Total Protein 5.3 g/dL (6.3-8.2)
[2017-06-05] MEDS: SODIUM CHLORIDE 0.9% 1,000 ML IV SCH ×2 (05:50→18:28)
[2017-06-05] MEDS: METOPROLOL TARTRATE 50 MG TAB PO SCH ×2 (07:42→21:17)
[2017-06-05] MEDS ORDERED: BUTALB/APAP/CAFF 50-325-40MG TAB PO STA (08:09)
[2017-06-05] MEDS: LACOSAMIDE 50 MG TABLET PO SCH ×2 (08:28→21:17)
[2017-06-05] MEDS: ALPRAZolam 0.5 MG TAB PO STA ×2 (12:13→12:38)
[2017-06-05] MEDS ORDERED: ALPRAZolam 0.5 MG TAB PO STA (12:31)
[2017-06-05 12:51] LABS: Hemoglobin A1C 5.3 % (4.0-6.0)
--- NOTE | 2017-06-05 15:03 | MR ---
EXAMINATION TYPE: MR lumbar spine wo/w con DATE OF EXAM: 06/05/2017 2:18 PM COMPARISON: NONE HISTORY: lumbago CONTRAST: The patient was injected with 7.5 mL intravenous Gadavist gadolinium contrast. Multiplanar, MultiSpin echo imaging of the lumbar spine was performed. L1-L2: Normal disc appearance without desiccation. No herniation, protrusion or disc bulging. No ca nal stenosis is present. Foramina are patent bilaterally. L2-L3: Moderate degenerative disc space narrowing. Circumferential disc bulge. Mild effacement ventra l thecal sac. No disc herniation or protrusion. No central stenosis or foraminal encroachment. Large ventral spondylosis. L3-L4: Normal disc appearance without desiccation. No herniation, protrusion or disc bulging. No ca nal stenosis is present. Foramina are patent bilaterally. L4-L5: Normal disc appearance without desiccation. No herniation, protrusion or disc bulging. No ca nal stenosis is present. Foramina are patent bilaterally. L5-S1: Normal disc appearance without desiccation. No herniation, protrusion or disc bulging. No ca nal stenosis is present. Foramina are patent bilaterally. Lumbar segments are intact. No paraspinal masses are identified. Conus medullaris has a normal appe arance. No pathologic enhancement identified. IMPRESSION: 1. Degenerative disc disease and disc bulging at L2-3.
--- NOTE | 2017-06-05 15:16 | MR ---
PRE AND POSTCONTRAST ENHANCED MRI OF THE BRAIN: CLINICAL HISTORY: Ataxia COMPARISON: November 08, 2016 CONTRAST: Gadavist 7.5 mL Multiplanar and multispin-echo imaging of the brain was performed both before and after the administr ation of contrast. The ventricles, basal cisterns and sulci overlying the cerebral convexities are within normal limits. There is no evidence for midline shift or mass effect. Acute intracranial hemorrhage or extra-axial collection is not evident. There are no abnormal areas of increased or decreased signal intensity within the brain parenchyma. Following contrast administration, there is no evidence for pathologic enhancement or enhancing mass. The paranasal sinuses and mastoid air cells are well-aerated. Mild mucoperiosteal thickening maxillar y sinuses and ethmoid air cells. IMPRESSION: Unremarkable pre and postcontrast enhanced MRI of the brain. Mild mucoperiosteal thickening. EXAMINATION TYPE: MR brain/cspine wo/w DATE OF EXAM: 06/05/2017 2:17 PM COMPARISON: NONE HISTORY: ataxia, cervical radiculopathy CONTRAST: The patient was injected with 7.5 mL intravenous Gadavist gadolinium contrast. Multiplanar MultiSpin echo imaging of the cervical spine was performed. C2-C3: No evidence for degenerative disc disease. No disc bulge/herniation or protrusion. No Canal stenosis. Foramina are patent bilaterally. C3-C4: Mild decreased signal ossified compatible degenerative disc disease. Minimal posterior disc bu lge. Minimal effacement ventral thecal sac. No evidence for herniation or protrusion. No central sten osis. No foraminal encroachment identified. C4-C5: Mild decreased signal ossified compatible degenerative disc disease. Mild posterior disc bulge . Mild effacement ventral thecal sac. No evidence for herniation or protrusion. No central stenosis. Degenerative change of the cervical apophyseal joints resulting in moderate right foraminal encroachm ent. Left neural foramen at this level is patent. C5-C6: Mild decreased signal ossified compatible degenerative disc disease. Mild posterior disc bulge . Mild effacement ventral thecal sac. No evidence for herniation or protrusion. No central stenosis. Degenerative change of the cervical apophyseal joints resulting in [id number] bilateral foramin al encroachment. C6-C7:No evidence for degenerative disc disease. No disc bulge/herniation or protrusion. No Canal s tenosis. Foramina are patent bilaterally. C7-T1: No evidence for degenerative disc disease. No disc bulge/herniation or protrusion. No Canal stenosis. Foramina are patent bilaterally. No cervical spine fracture. There is normal alignment. Cervical spinal cord is of normal signal. C raniovertebral junction relationships are within normal limits. No pathologic enhancement. IMPRESSION: 1. Degenerative disc disease as discussed. 2. Disc bulging as noted. 3. Foraminal encroachment as outlined above.
--- NOTE | 2017-06-05 16:24 | P.PN ---
Subjective Progress Note Date: 06/05/17 This patient is a 47-year-old right-handed white female who was admitted yesterday to the intensive care unit with bilateral leg weakness and paraparesis. She was complaining of a sensory level in the mid thoracic region for which she has no feeling below. She is undergoing neuro imaging studies of the entire spine as well as MRI of the brain. She is scheduled to undergo lumbar puncture with anesthesia today for further evaluation for possibility of acute Guillain-Cárdenas syndrome. Patient was able to complete MRI of the brain today which report was reviewed and MRI of the brain is reported to be unremarkable. There was no contrast enhancement. MRI of the cervical spine revealed degenerative disc disease with disc bulging. Some foraminal encroachment was noted. No significant spinal stenosis or severe disc herniation. MRI of the lumbar spine was completed and results indicate degenerative disc disease at L2/L3 level. No evidence for cauda equina syndrome. We have reviewed these neuro imaging results today with the patient. She states there is no change in her leg weakness. She still has no feeling from the mid thoracic region to her feet. We will await her lumbar puncture to be done later today as well as MRI of the thoracic spine which apparently will be done tomorrow. This patient's overall prognosis remains guarded. Exact etiology of her paraparesis at this time is unclear. We will continue close monitoring and follow-up for this patient in the intensive care unit. Given this patient's complex past medical history she may be a good candidate for transfer to a tertiary center for more extensive evaluation. We will continue our workup and will await the results of her spinal fluid an MRI of the thoracic spine. Her overall prognosis at this time remains very guarded. Objective - Vital Signs Vital signs: Vital Signs Temp 98.0 F 06/05/17 08:00 Pulse 94 06/05/17 08:00 Resp 26 H 06/05/17 08:00 BP 151/92 06/05/17 08:00 Pulse Ox 95 06/05/17 08:00 Intake & Output 06/04/17 06/05/17 06/05/17 18:59 06:59 18:59 Intake Total 1395 640 Balance 1395 640 Weight 71.668 kg 69.6 kg 69.6 kg Intake: IV 825 400 Sodium Chloride 0.9% 1, 825 400 000 ml @ 100 mls/hr IV . Q10H STA Rx#:[id number] Oral 570 240 Other: Voiding Method Bedside Commode Bedside Commode # Voids 1 1 - Exam Physical examination: PHYSICAL EXAMINATION: Patient is resting comfortably in bed. VITAL SIGNS: Blood pressure is [151/92]. Heart rate is [94]. Respiration is [26] . Temperature is [98.0]. HEENT: Head is atraumatic, neck is supple, there were no carotid bruits. CHEST: Lungs are clear to auscultation and percussion. CARDIAC: S1, S2 normal rate and rhythm. There is no murmur. ABDOMEN: Soft and nontender. Bowel sounds are present. EXTREMITIES: There is no pedal edema. Peripheral pulses are present. Neurological examination: Patient is awake alert oriented 3. His speech is fluent with no evidence of any aphasia or dysarthria. Her memory and intellectual functions appropriate for age. Cranial nerve examination: Cranial nerves II through XII are grossly intact. Motor examination: There was no pronator drift. Muscle tone is normal in the upper extremities. Muscle strength is normal in the upper extremities 4/ 5. In the lower extremities patient has severe paraparesis in both lower extremities 1/5. She is barely able to lift her feet off of the bed. Muscle tone is decreased in both lower extremities. As noted muscle strength is 1/5 bilaterally. Sensory examination: Patient has a sensory level up to the mid thoracic region of T8/T10. Deep tendon reflexes: The deep tendon reflexes are absent and she is areflexic in the lower extremities. Plantar responses flexor bilaterally. Coordination and gait cannot be assessed in this patient at this time. - Labs CBC & Chem 7: 06/05/17 03:58 06/05/17 03:58 Labs: Abnormal Lab Results - Last 24 Hours (Table) 06/04/17 06/04/17 06/04/17 Range/Units 15:15 15:15 15:15 RBC (3.80-5.40) m/uL MCV 100.4 H (80.0-100.0) fL D-Dimer (<0.60) mg/L FEU Glucose 115 H (74-99) mg/dL POC Glucose (mg/dL) (75-99) mg/dL Phosphorus (2.5-4.5) mg/dL AST 37 H (14-36) U/L Creatine Kinase (30-135) U/L Total Creatine Kinase 25 L (30-135) U/L Total Protein (6.3-8.2) g/dL Albumin (3.5-5.0) g/dL 06/04/17 06/04/17 06/05/17 Range/Units 15:15 21:14 03:58 RBC (3.80-5.40) m/uL MCV (80.0-100.0) fL D-Dimer 0.82 H (<0.60) mg/L FEU Glucose 107 H (74-99) mg/dL POC Glucose (mg/dL) 100 H (75-99) mg/dL Phosphorus 4.9 H (2.5-4.5) mg/dL AST 42 H (14-36) U/L Creatine Kinase 21 L (30-135) U/L Total Creatine Kinase (30-135) U/L Total Protein 5.3 L (6.3-8.2) g/dL Albumin 3.0 L (3.5-5.0) g/dL 06/05/17 Range/Units 03:58 RBC 3.70 L (3.80-5.40) m/uL MCV 103.1 H (80.0-100.0) fL D-Dimer (<0.60) mg/L FEU Glucose (74-99) mg/dL POC Glucose (mg/dL) (75-99) mg/dL Phosphorus (2.5-4.5) mg/dL AST (14-36) U/L Creatine Kinase (30-135) U/L Total Creatine Kinase (30-135) U/L Total Protein (6.3-8.2) g/dL Albumin (3.5-5.0) g/dL Microbiology - Last 24 Hours (Table) 06/04/17 20:09 Urine Culture - Preliminary Urine,Voided Assessment and Plan (1) 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 Current Visit: Yes Status: Acute Code(s): G61.0 - GUILLAIN-BARRE SYNDROME SNOMED Code(s): 882912618 (2) Paraparesis of both lower limbs Current Visit: Yes Status: Acute Code(s): G82.20 - PARAPLEGIA, UNSPECIFIED SNOMED Code(s): 5140927 (3) Acute exacerbation of chronic low back pain Current Visit: No Status: Acute Code(s): M54.5 - LOW BACK PAIN SNOMED Code (s): 778364108 (4) Seizure disorder Current Visit: Yes Status: Acute Code(s): G40.909 - EPILEPSY, UNSP, NOT INTRACTABLE, WITHOUT STATUS EPILEPTICUS SNOMED Code(s): 784376549 Plan: This patient is a 47-year-old female being evaluated for acute three-week onset of paraparesis involving both lower extremities She was admitted to the intensive care unit yesterday. She is completed some neuro imaging studies today including MRI of the brain which was normal. MRI of the cervical spine and lumbar spine are as noted above. Patient is to have MRI thoracic spine done tomorrow. Maykel and evidence of cauda equina syndrome based on the lumbar MRI results. No evidence of any mass lesion on the current MRI results. No acute or massive disc herniation is noted. Patient still has significant paraparesis in both lower extremities. She is to undergo lumbar puncture for further evaluation of acute Guillain-Cárdenas syndrome. We will await the MRI of the thoracic spine to be done for further assessment. If her entire workup comes back negative she may be considered for transfer to a tertiary center for more extensive evaluation. At this time we will continue close neurological follow-up for the patient in the intensive care unit. Her overall prognosis at this time remains very guarded.
--- NOTE | 2017-06-05 17:38 | P.PCN ---
Date of Procedure: 06/05/17 Procedure(s) Performed: Procedure=1-lumbar puncture . Preoperative diagnoses= acute demyelinating disease, Ivana - Cárdenas syndrome Postoperative diagnosis= same as preoperative diagnoses Anesthesia= local lidocaine infiltration 1% 3 mL for skin and subcu infiltration. Condition= stable. Complications=none. Indication for the procedure= patient with a history of symptoms suggestive of Ivana Cárdenas syndrome. and she was referred to have a lumbar puncture for diagnostic study procedure risk and benefits and alternatives discussed with the patient and she agreed with the preceding, Description of the procedure= patient in the ICU room, placed in sitting position and monitors applied, the back prepped with chlorhexidine -3, sterile technique, local infiltration of the skin and subcu interstitial with lidocaine 1% 3 mL, then 22-gauge quickie Needle advanced slowly at L4 5 interlaminar space , the cerebrospinal fluid was clear, and no heme no paresthesia, a total of 10 mL of clear cerebrospinal fluid collected in 4 different tubes, the needle removed, Band-Aid applied , patient tolerated the procedure well without any complications, and further management as per her neurologist
[2017-06-05] MEDS: BUTALB/APAP/CAFF 50-325-40MG TAB PO PRN (18:28)
[2017-06-05 18:38] LABS: Glucose,CSF 62 mg/dL (40-70); Total Protein,CSF 51 mg/dL (12-60)
--- NOTE | 2017-06-05 19:10 | HP ---
HISTORY AND PHYSICAL DATE OF ADMISSION: 06/04/17 PRESENTING COMPLAINT: Weakness. HISTORY OF PRESENTING COMPLAINT: I saw this patient this morning in the ICU. The patient follows with Dr. Reece. The patient's chronic stable medical conditions include hypertension, hyperlipidemia, seizure disorder, bipolar disorder, chronic low back pain. The patient does follow with neurologist Dr. Cid. About 3 weeks ago, patient had episode of what appears to be nausea, vomiting, diarrhea. Did have a workup done, everything was negative. It was diagnosed as irritable bowel syndrome. For 3 weeks patient now noticed that the toes has gone to sleep and slowly numbness has progressed to go up to now just reached to below the ribcage and patient cannot feel much down there. The patient is able to move the legs so much. Neurology was consulted from the ER, Dr. Rdz and he ordered a lumbar puncture for workup of Guillain-Elizabeth syndrome. The patient denies any respiratory symptoms. No fever. The patient has lower back pain. The patient was given Zonegran that was changed to Vimpat by her neurologist. REVIEW OF SYSTEMS: CONSTITUTIONAL: Tired. HEENT: None. RESPIRATORY: None. CARDIOVASCULAR: None. GASTROINTESTINAL: As above. GENITOURINARY: Sometimes trouble with urination. MUSCULOSKELETAL: As above. DERMATOLOGICAL: None. HEMATOLOGIC: None. LYMPHATIC: None. PSYCHIATRY: Bipolar controlled. NEUROLOGICAL: As above. PAST MEDICAL HISTORY: Irritable bowel syndrome, hypertension, hyperlipidemia, seizure disorder, bipolar disorder, chronic lower back pain. PAST SURGICAL HISTORY: Appendectomy, , cholecystectomy, hernia repair, tonsillectomy, hiatal hernia, left rotator cuff repair, bilateral knees, goes to Pain [facility] for procedure with occipital nerve block. PSYCH HISTORY: Bipolar disorder, claustrophobia. SOCIAL HISTORY: Lives with her . Did smoke in the past. Alcohol rarely. Denies recreational drugs. FAMILY HISTORY: Coronary artery disease, hypothyroid, hypertension, hyperlipidemia, diabetes, dementia. HOME MEDICATIONS: 1. Fioricet 1 capsule p.o. q.4 p.r.n. 2. Tylenol 3 one tab q.4 p.r.n. 3. Zofran 8 mg q.8h p.r.n. 4. Vimpat 100 mg p.o. b.i.d. 5. Lipitor 40 mg q.h.s. ALLERGIES: 1. List is extensive. This was reviewed in the electronic chart on this hospital admission. A lot of these appear to be side effects. PHYSICAL EXAMINATION: Temperature 98, pulse 89, respirations 21, blood pressure 165/95, pulse ox 94% on room air. GENERAL APPEARANCE: Average build, lying in bed comfortable. EYES: Pupils equal. Conjunctivae normal. HEENT: External appearance of nose and ears normal. Oral cavity normal. NECK: JVD not raised. Mass not palpable. RESPIRATORY: Effort, lungs are clear. CARDIOVASCULAR: First and second sounds, no edema. ABDOMEN: Soft, nontender. Liver and spleen not palpable. LYMPHATIC: No lymph node palpable in the neck or axillae. PSYCHIATRY: Alert and oriented x3. Mood and affect normal. NEUROLOGICAL: Pupils equal. Cranial nerves grossly intact. Patient's power in both lower extremities is close to 1/5. Reflexes are both down and patient has minimal sensation from abdomen, below the ribcage down to the toes. INVESTIGATIONS: White count 9.6, hemoglobin 14.3, potassium 4.2, BUN and creatinine are normal. TSH is normal. UA negative. The patient had a brain cervical spine MRI that showed minimal disc disease except for at C4-C5 had some moderate right foraminal encroachment and some at C5-C6 level. Lumbar spine MRI shows degenerative disc disease with disc bulging at L2, L3. ASSESSMENT: 1. This is a patient who presented with 3 weeks of progressive weakness coming from the toes coming up to the abdominal level preceded by gastrointestinal symptoms with rather classical of Guillain-Elizabeth syndrome. The patient did have some lumbar MRI findings, but there is no upper motor neuron findings in the lower extremity. 2. Essential hypertension. 3. Hyperlipidemia. 4. Seizure disorder. 5. Bipolar disorder. PLAN: Neuro checks are in place. Neurology Dr. Rdz was consulted. He ordered a lumbar puncture. Other home medications are resumed. Lovenox for DVT prophylaxis. MMODL / IJN: [id number] /
[2017-06-05 19:28] LABS: Appearance,CSF Clear; CSF Tube Number 1
[2017-06-05 19:29] LABS: Appearance,CSF Clear; CSF Tube Number 4; CSF Tube Volume 3; Nucleated Cells, CSF 0 u/L (0-5); Nucleated Cells, CSF 1 u/L (0-5); Red Blood Cell,CSF 0 u/L (0-10)
[2017-06-05] MEDS: ENOXAPARIN 40 MG/0.4 ML SYRINGE SQ SCH (21:16)
[2017-06-05] MEDS: ATORVASTATIN 40 MG TAB PO SCH (21:17)
[2017-06-05] MEDS: hydrALAZINE HCL 20 MG/ML 1 ML VIAL IVP PRN (23:17)
[2017-06-06] MEDS: SODIUM CHLORIDE 0.9% 1,000 ML IV SCH ×2 (01:00→10:47)
[2017-06-06] MEDS: HYDROcodone/APAP 5-325MG 1 EACH TAB PO PRN ×2 (02:42→08:42)
[2017-06-06 06:18] LABS: Basophils % (A) 0 %; Eosinophils # (A) 0.1 k/uL (0-0.7); Eosinophils % (A) 1 %; HCT 42.6 % (34.0-46.0); HGB 13.4 gm/dL (11.4-16.0); Lymphocytes # (A) 1.6 k/uL (1.0-4.8); Lymphocytes % (A) 13 %; MCH 32.5 pg (25.0-35.0); MCHC 31.5 g/dL (31.0-37.0); MCV 103.3 fL (80.0-100.0); Macrocytosis Slight; Mean Platelet Volume 8.9; Monocytes # (A) 0.5 k/uL (0-1.0); Monocytes % (A) 4 %; Neutrophils # (A) 10.2 k/uL (1.3-7.7); Neutrophils % (A) 81 %; Platelet Count 263 k/uL (150-450); RBC 4.13 m/uL (3.80-5.40); RDW 14.1 % (11.5-15.5); WBC 12.5 k/uL (3.8-10.6)
[2017-06-06 06:40] LABS: Anion Gap 11 mmol/L; Blood Urea Nitrogen 7 mg/dL (7-17); Calcium 9.3 mg/dL (8.4-10.2); Carbon Dioxide 26 mmol/L (22-30); Chloride 103 mmol/L (98-107); Glucose 158 mg/dL (74-99); Potassium 4.1 mmol/L (3.5-5.1); Sodium 140 mmol/L (137-145)
[2017-06-06] MEDS: hydrALAZINE HCL 20 MG/ML 1 ML VIAL IVP PRN ×2 (06:45→13:01)
[2017-06-06 07:01] LABS: Glucose,Whole Blood 110 mg/dL (75-99)
[2017-06-06] MEDS: LACOSAMIDE 50 MG TABLET PO SCH (07:59)
[2017-06-06] MEDS: ENOXAPARIN 40 MG/0.4 ML SYRINGE SQ SCH (08:02)
[2017-06-06] MEDS: METOPROLOL TARTRATE 50 MG TAB PO SCH (08:03)
[2017-06-06] MEDS: BUTALB/APAP/CAFF 50-325-40MG TAB PO PRN (08:13)
--- NOTE | 2017-06-06 09:14 | P.CNPUL ---
History of Present Illness Consult date: 06/06/17 Reason for consult: other Chief complaint: Numbness and muscle weakness, shortness of breath, declining vital capaciti History of present illness: Consult dated 06/06/2017 47-year-old female who was admitted to the emergency room for evaluation of numbness and weakness. The patient apparently had a descending weakness and numbness starting in the lower extremities in working more proximally. The patient complains of increasing shortness of breath. In addition, she has declining vital capacities. She sought the possibly have Guillain-Cárdenas syndrome. Her vital capacities have gone for 1.8-1.45-1.2. Arterial blood gases were ordered. She is on O2 at 2 L. She's getting a saline IV at 100. She was admitted initially on the as an overflow patient to the ICU. I do not see her on that day. He was transferred out to the sixth floor on June 05 and transferred back to the ICU on June 06 because of shortness of breath and climbing vital capacities. Her outpatient medications include Lipitor Vimpat and Zofran. Her medical history includes anxiety, hyperlipidemia, hypertension , seizure disorder, hypothyroidism, viral meningitis, migraine cephalgia, chronic back pain, and bipolar disorder. She's had multiple surgical procedures including appendectomy, section, cholecystectomy, hernia repair, hysterectomy, tonsillectomy, and tubal ligation. Review of Systems A 12 point review of system is positive for increasing weakness and shortness of breath. Also numbness. Things have ascended from her feet legs thighs and trunk up to about the nipple level. Past Medical History Past Medical History: Hyperlipidemia, Seizure Disorder Additional Past Medical History / Comment(s): Migraines, viral meningitis x3 as a child, 1995, 2000, chronic back pain, nerve blocks 08/2016 and 12/2016. 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 Bipolar, anxiety History of Any Multi-Drug Resistant Organisms: None Reported Past Surgical History: Appendectomy, Section, Cholecystectomy, Hernia Repair, Hysterectomy, Orthopedic Surgery, Tonsillectomy, Tubal Ligation Additional Past Surgical History / Comment(s): Hiatal Hernia, umbilical hernia repair, left rotator cuff repair, bilateral knee scopes, pain clinic procedures- occipital nerve block on 01/05/2017. Past Anesthesia/Blood Transfusion Reactions: No Reported Reaction Additional Past Anesthesia/Blood Transfusion Reaction / Comment(s): Claustrophobic Smoking Status: Former smoker - Past Family History Mother Family Medical History: Cancer, Dementia, Diabetes Mellitus, GERD/Reflux, Hyperlipidemia, Hypertension, Thyroid Disorder Additional Family Medical History / Comment(s): Quad CABG, cardiac stents, toes ampuated. Father History Unknown: Yes Family Medical History: No Reported History Medications and Allergies Home Medications Medication Instructions Recorded Confirmed Type Atorvastatin [Lipitor] 40 mg PO HS 04/02/17 06/04/17 History Acetaminophen-Codeine 300-30mg 1 tab PO Q4H PRN 06/04/17 06/04/17 History [Tylenol w/codeine #3] Butalb/Acetaminophen/Caffeine 1 each PO Q4H PRN 06/04/17 06/04/17 History [Fioricet 50-325-40] Lacosamide [Vimpat] 100 mg PO BID 06/04/17 06/04/17 History Ondansetron HCl [Zofran] 8 mg PO Q8H PRN 06/04/17 06/04/17 History Allergies Allergy/AdvReac Type Severity Reaction Status Date / Time gabapentin [From Neurontin] Allergy Itching Verified 06/04/17 15:37 latex Allergy Anaphylaxis Verified 06/04/17 15:37 naproxen [From Naprosyn] Allergy Anaphylaxis Verified 06/04/17 15:37 Penicillins Allergy Anaphylaxis Verified 06/04/17 15:37 quetiapine fumarate Allergy Itching, Verified 06/04/17 15:37 [From Seroquel] leg cramps rofecoxib [From Vioxx] Allergy Itching, Verified 06/04/17 15:37 leg cramps terfenadine [From Seldane] Allergy Rash/Hives Verified 06/04/17 15:37 tramadol Allergy Nausea & Verified 06/04/17 15:37 Vomiting/LEG CRAMPS/HEART FLUTTERS calcium carbonate [From DHEA] AdvReac Chest Pain Verified 06/04/17 15:37 calcium phosphate,dibasic AdvReac Chest Pain Verified 06/04/17 15:37 [From DHEA] clindamycin AdvReac muscle Verified 06/04/17 15:37 cramps clonidine AdvReac fast Verified 06/04/17 15:37 heartbeat, migraine dextromethorphan HBr AdvReac face/neck Verified 06/04/17 15:37 [From NyQuil] flushing diazepam [From Valium] AdvReac Nausea & Verified 06/04/17 15:37 Vomiting divalproex sodium AdvReac Nausea & Verified 06/04/17 15:37 [From Depakote] Vomiting doxylamine [From NyQuil] AdvReac face "beet Verified 06/04/17 15:37 red", elevated temp. ibuprofen [From Motrin] AdvReac abdominal Verified 06/04/17 15:37 & muscle cramps indomethacin [From Indocin] AdvReac Abdominal Verified 06/04/17 15:37 Pain,N/V ketorolac tromethamine AdvReac "built up Verified 06/04/17 15:37 [From Toradol] in system", had to be given something to reverse metoclopramide HCl AdvReac muscle Verified 06/04/17 15:37 [From Reglan] cramps prasterone (DHEA) [From DHEA] AdvReac Chest Pain Verified 06/04/17 15:37 prochlorperazine AdvReac leg Verified 06/04/17 15:37 [From Compazine] cramping propranolol AdvReac Chest Pain Verified 06/04/17 15:37 pseudoephedrine HCl AdvReac face "beet Verified 06/04/17 15:37 [From NyQuil] red", elevated temp. quetiapine [From Seroquel] AdvReac leg Verified 06/04/17 15:37 cramping sumatriptan [From Imitrex] AdvReac migrane Verified 06/04/17 15:37 sumatriptan succinate AdvReac migrane Verified 06/04/17 15:37 [From Imitrex] topiramate [From Topamax] AdvReac "built up Verified 06/04/17 15:37 in system", had to be given something to reverse trazodone AdvReac "built up Verified 06/04/17 15:37 in system", had to be given something to reverse zolpidem tartrate AdvReac "Became Verified 06/04/17 15:37 [From Ambien] violent with no memory" artificial sweetener AdvReac SEVERE Uncoded 04/02/17 16:49 MIGRAINE HEADACHE Physical Exam Osteopathic Statement: *. No significant issues noted on an osteopathic structural exam other than those noted in the History and Physical/Consult. Vitals: Vital Signs Temp Pulse Pulse Resp BP BP Pulse Ox 06/06/17 09:00 109 H 16 165/110 99 06/06/17 08:00 97.4 F L 114 H 22 165/110 98 06/06/17 04:00 97.9 F 106 H 19 143/104 95 06/06/17 00:00 97.6 F 98 18 159/116 92 L 06/05/17 22:00 100 13 172/118 97 06/05/17 21:36 123 H 24 172/118 96 06/05/17 21:00 119 H 16 148/107 06/05/17 20:00 98 19 06/05/17 19:00 94 19 06/05/17 18:00 99 13 154/96 06/05/17 17:00 98 154/96 06/05/17 16:00 98.2 F 94 21 154/96 95 06/05/17 15:00 101 H 22 06/05/17 12:00 98.0 F 89 21 165/95 94 L 06/05/17 11:00 87 17 06/05/17 10:00 85 15 151/98 Intake and Output 06/05/17 06/06/17 06/06/17 22:59 06:59 14:59 Intake Total 200 100 Output Total 1100 Balance 200 -1100 100 Intake: IV 200 Sodium Chloride 0.9% 1, 200 000 ml @ 100 mls/hr IV . Q10H STA Rx#:[id number] Intake, IV Titration 100 Amount Sodium Chloride 0.9% 1, 100 000 ml @ 100 mls/hr IV . Q10H PAMELA Rx#:[id number] Output: Urine 1100 Other: Voiding Method Bedside Commode Bedside Commode # Voids 1 1 Weight 69.6 kg 71 kg No acute distress, oriented 3. Nasal O2 in place at 2 L. HEENT examination is grossly unremarkable. Mucous membranes are moist. No oral lesions. Neck supple. Full range of motion. No adenopathy thyromegaly or neck vein distention. Cardiovascular examination reveals regular rhythm rate. S1-S2 normal. No S3 or S4. No discernible murmur noted. Lungs reveal clear breath sounds. Her sounds are equal bilaterally. No adventitious lung sounds including wheezes rhonchi or crackles. Abdomen soft bowel sounds are heard. No masses or tenderness. Extremities are intact. No cyanosis clubbing or edema. Skin is without rash or lesion. Neurologic examination is brief but nonfocal. She does have weakness to the lower extremities and numbness to the lower extremities. Results - Laboratory Findings CBC and BMP: 06/06/17 05:18 06/06/17 05:18 PT/INR, D-dimer PT 9.4 sec (9.0-12.0) 06/04/17 15:15 INR 0.9 (<1.2) 06/04/17 15:15 D-Dimer 0.82 mg/L FEU (<0.60) H 06/04/17 15:15 Abnormal lab findings: Abnormal Labs 06/04/17 06/04/17 06/04/17 15:15 15:15 15:15 WBC RBC MCV 100.4 H Neutrophils # D-Dimer Glucose 115 H POC Glucose (mg/dL) Phosphorus AST 37 H Creatine Kinase Total Creatine Kinase 25 L Total Protein Albumin 06/04/17 06/04/17 06/05/17 15:15 21:14 03:58 WBC RBC MCV Neutrophils # D-Dimer 0.82 H Glucose 107 H POC Glucose (mg/dL) 100 H Phosphorus 4.9 H AST 42 H Creatine Kinase 21 L Total Creatine Kinase Total Protein 5.3 L Albumin 3.0 L 06/05/17 06/06/17 06/06/17 03:58 05:18 05:18 WBC 12.5 H RBC 3.70 L MCV 103.1 H 103.3 H Neutrophils # 10.2 H D-Dimer Glucose 158 H POC Glucose (mg/dL) Phosphorus AST Creatine Kinase Total Creatine Kinase Total Protein Albumin 06/06/17 06:59 WBC RBC MCV Neutrophils # D-Dimer Glucose POC Glucose (mg/dL) 110 H Phosphorus AST Creatine Kinase Total Creatine Kinase Total Protein Albumin - Diagnostic Findings Chest x-ray: image reviewed (The patient is interviewed and examined. Labs x- rays a medications are reviewed.) Assessment and Plan Assessment: Assessment Rule out ascending sensory/motor polyneuropathy, i.e. Guillain-Cárdenas syndrome History of hyperlipidemia History of hypertension History of seizure disorder History of migraine cephalgia. History of chronic back pain History of bipolar disorder Multiple other medical problems and comorbidities Plan: Plan dated 06/05/2017 The patient should be transferred to a facility that can provide her with expert care for but appears to be asymmetrical a standing sensory/motor polyneuropathy. The patient will need IVIG therapy as well as plasma exchange. We'll see for can transfer the patient to [facility] before the patient gets any worse. Her vital capacities are dropping. They were 1.8 down to 1.5 down to 1.2. Blood gases are pending. She remains on O2 at 2 L. Her IV saline at 100 mL an hour. Additional recommendations and suggestions are forthcoming. Time with Patient: Greater than 30
[2017-06-06 09:48] LABS: ABG Base Excess 0.1 mmol/L; ABG HCO3 22 mmol/L (21-25); ABG Oxygen Saturation 98.7 % (94-97); ABG PCO2 23 mmHg (35-45); ABG PH 7.58 (7.35-7.45); ABG PO2 134 mmHg (83-108); ABG TCO2 23 mmol/L (19-24)
[2017-06-06] MEDS ORDERED: ACETAMINOPHEN TAB 325 MG TAB PO PRN (10:21)
--- NOTE | 2017-06-06 11:04 | P.PN ---
Subjective Progress Note Date: 06/06/17 This patient is a 47-year-old right-handed white female who was admitted to Hospital with paraparesis which has been progressive over 3 weeks at home. She has made at Hospital and was seen in neurology consultation in the intensive care unit a few days ago. Given her areflexia and ascending weakness with a sensory level in the mid thoracic region there was concern for possibility of acute Guillain-Cárdenas syndrome as well as transverse myelitis. Patient underwent MRI of the brain cervical spine and lumbar spine yesterday and the results were reviewed in detail with the patient. There was no acute finding to explain her sudden onset of severe paraparesis and weakness. The patient was able to complete a lumbar puncture yesterday. Spinal fluid results indicated a cell count of 1. RBC was 0 WBC was 1. CSF glucose was 62 and CSF protein was 51. These findings were not suggestive of acute Guillain-Cárdenas syndrome which usually reveals evidence of a cytoalbuminic dissassociation. According to the ICU nursing staff she was transferred to the medical floor yesterday on selective care. She developed sudden onset of worsening respiratory problems. She was seen by Dr. Cui from pulmonary medicine today for evaluation. She had evidence of decreasing vital capacities. Her vital capacity went from 1.8 1.2. She was transferred back to the intensive care unit today. Her clinical history is still suggesting possibility of acute Guillain-Cárdenas syndrome. This is despite her spinal fluid results from yesterday. Based on these findings and decreasing vital capacity the patient is now being transferred to [facility] neuro intensive care unit for further management. The patient is scheduled to undergo a MRI of the thoracic spine but this will be only possible if she remains in-house. We would recommend that this study be carried out at [facility]. Dr. Cui is recommending the patient be transferred to a tertiary care center given her worsening mu-ism status. Hopefully she will not require intubation prior to transfer. Her vital capacities have been dropping rather quickly. She remains on 2 L of nasal oxygen. She does continue to have a sensory level in the midthoracic region which remains unchanged from yesterday. We have discussed the results of the spinal fluid evaluation that was done yesterday today with the patient in the intensive care unit. We are recommending that she be transferred to [facility]. She may require plasmapheresis or IVIG treatment and will likely require an immediate EMG study as well. The differential diagnosis would also include possibility of transverse myelitis. Once again she does need a MRI of the thoracic spine to be done for further assessment. We're recommending that all records and test results be copied and transferred with her to [facility] further assessment. We will continue close neurological follow-up for this patient during this admission. Her overall prognosis at this time remains very guarded. Objective - Vital Signs Vital signs: Vital Signs Temp 97.4 F L 06/06/17 08:00 Pulse 109 H 06/06/17 09:00 Resp 16 06/06/17 09:00 BP 165/110 06/06/17 09:00 Pulse Ox 99 06/06/17 09:00 Intake & Output 06/05/17 06/06/17 06/06/17 18:59 06:59 18:59 Intake Total 740 100 200 Output Total 1100 400 Balance 740 -1000 -200 Weight 69.6 kg 71 kg Intake: IV 500 100 100 Sodium Chloride 0.9% 1, 500 100 100 000 ml @ 100 mls/hr IV . Q10H STA Rx#:[id number] Intake, IV Titration 100 Amount Sodium Chloride 0.9% 1, 100 000 ml @ 100 mls/hr IV . Q10H PAMELA Rx#:[id number] Oral 240 Output: Urine 1100 400 Other: Voiding Method Bedside Commode Bedside Commode Bedside Commode # Voids 1 1 1 - Exam Physical examination: PHYSICAL EXAMINATION: Patient is resting comfortably in bed. Patient is having mild rest Deniz distress and remains on oxygen 2 L nasal cannula. VITAL SIGNS: Blood pressure is [165/110]. Heart rate is [109]. Respiration is [ 16]. Temperature is [97.5]. HEENT: Head is atraumatic, neck is supple, there were no carotid bruits. CHEST: Lungs are clear to auscultation and percussion. CARDIAC: S1, S2 normal rate and rhythm. There is no murmur. ABDOMEN: Soft and nontender. Bowel sounds are present. EXTREMITIES: There is no pedal edema. Peripheral pulses are present. Neurological examination: Patient is awake alert oriented 3. His speech is fluent with no evidence of any aphasia or dysarthria. Her memory and intellectual functions appropriate for age. Cranial nerve examination: Cranial nerves II through XII are grossly intact. Motor examination: There was no pronator drift. Muscle tone is normal in the upper extremities. Muscle strength is normal in the upper extremities 4/ 5. In the lower extremities patient has severe paraparesis in both lower extremities 1/5. She is barely able to lift her feet off of the bed. Muscle tone is decreased in both lower extremities. As noted muscle strength is 1/5 bilaterally. Sensory examination: Patient has a sensory level up to the mid thoracic region of T8/T10. Deep tendon reflexes: The deep tendon reflexes are absent and she is areflexic in the lower extremities. Plantar responses flexor bilaterally. Coordination and gait cannot be assessed in this patient at this time. Patient is having difficulty with her breathing today in the intensive care unit. She remains on nasal oxygen 2 L. - Labs CBC & Chem 7: 06/06/17 05:18 06/06/17 05:18 Labs: Abnormal Lab Results - Last 24 Hours (Table) 06/06/17 06/06/17 06/06/17 Range/Units 05:18 05:18 06:59 WBC 12.5 H (3.8-10.6) k/uL MCV 103.3 H (80.0-100.0) fL Neutrophils # 10.2 H (1.3-7.7) k/uL ABG pH (7.35-7.45) ABG pCO2 (35-45) mmHg ABG pO2 (83-108) mmHg ABG O2 Saturation (94-97) % Glucose 158 H (74-99) mg/dL POC Glucose (mg/dL) 110 H (75-99) mg/dL 06/06/17 Range/Units 09:43 WBC (3.8-10.6) k/uL MCV (80.0-100.0) fL Neutrophils # (1.3-7.7) k/uL ABG pH 7.58 H (7.35-7.45) ABG pCO2 23 L (35-45) mmHg ABG pO2 134 H (83-108) mmHg ABG O2 Saturation 98.7 H (94-97) % Glucose (74-99) mg/dL POC Glucose (mg/dL) (75-99) mg/dL Microbiology - Last 24 Hours (Table) 06/04/17 20:09 Urine Culture - Final Urine,Voided 06/05/17 17:30 CSF Gram Stain - Preliminary Cerebral Spinal Fluid CSF Culture - Preliminary Assessment and Plan (1) 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 Current Visit: Yes Status: Acute Code(s): G61.0 - GUILLAIN-BARRE SYNDROME SNOMED Code(s): 565393069 (2) Paraparesis of both lower limbs Current Visit: Yes Status: Acute Code(s): G82.20 - PARAPLEGIA, UNSPECIFIED SNOMED Code(s): 6012908 (3) Acute exacerbation of chronic low back pain Current Visit: No Status: Acute Code(s): M54.5 - LOW BACK PAIN SNOMED Code (s): 023654676 (4) Seizure disorder Current Visit: Yes Status: Acute Code(s): G40.909 - EPILEPSY, UNSP, NOT INTRACTABLE, WITHOUT STATUS EPILEPTICUS SNOMED Code(s): 922436418 Plan: This patient is a 47-year-old female who was initially admitted to Hospital with symptoms of paraparesis and bilateral lower extremity weakness that had been progressive over 3 weeks at home. She did not seek any medical attention and came directly to the emergency room. She was essentially admitted to hospital and underwent neuro imaging study of the spine. She completed a MRI of the brain, cervical spine, and lumbar spine. Results are as noted above. MRI of the brain was negative for any acute findings. She was admitted to the intensive care unit for close monitoring. Her neurological examination suggested differential diagnosis of acute Guillain-Cárdenas syndrome versus transverse myelitis. We had recommended MRI of the thoracic spine but this is still pending. She underwent a lumbar puncture yesterday for further evaluation for acute Guillain-Cárdenas syndrome. Spinal fluid results are as noted above. These results are not suggestive of acute Guillain-Cárdenas syndrome. It is still unclear as the patient developed respiratory distress last evening. She was transferred back to the intensive care unit and was seen by pulmonary medicine this morning. Her vital capacity has dropped from 1.8- 1.2. She is to be closely monitored for rest Deniz failure. The patient is being transferred to [facility] neuro ICU for further evaluation and assessment. She may have a variant form of acute Guillain-Cárdenas syndrome which may best be treated with IVIG or plasmapheresis. These are various treatment options and we did discuss this today with the patient. Patient is agreeable for transferred to [facility] today. As soon as a bed has been assigned she'll be transferred as soon as possible for further evaluation. We did discuss all of her test results today with the patient at bedside. She is showing some signs of mild respiratory distress today. We will continue to follow along with Dr. Cui from pulmonary medicine. Her overall prognosis at this time remains very guarded. Patient is awaiting transferred today to [facility]. ICU nursing staff are aware and will make all arrangements to send her records with her. We will continue to follow her closely in the intensive care unit today. We will follow up with any further findings per [facility] one she is transferred to the neuro ICU there. Once again her overall prognosis at this time remains very guarded.
[2017-06-06 12:18] VITALS: TEMP 97.3
[2017-06-06] MEDS: BACLOFEN 10 MG TAB PO PRN (13:08)
[2017-06-06 13:29] VITALS: BP 139/85; PULSE 107; RESP 48
--- NOTE | 2017-06-06 14:49 | DS ---
DISCHARGE SUMMARY DISCHARGE/TRANSFER SUMMARY: DATE OF ADMISSION: June 04, 2017. DATE OF TRANSFER: June 06, 2017. FINAL DIAGNOSES: 1. Bilateral paraparesis progressively possibly acute Guillain [place] syndrome. 2. Essential hypertension. 3. Hyperlipidemia. 4. Seizure disorder. 5. Bipolar disorder. CONSULTATION: 1. Dr. Yeimy Rdz from neurology. 2. Dr. Cui from Pulmonary. HOSPITAL COURSE: This is a patient of Dr. Reece whose chronic stable medical conditions include hypertension, hyperlipidemia, seizure disorder, bipolar disorder, chronic low back pain. Also follows with a neurologist in [facility] Dr. Cid. The patient about 3 weeks ago had an episode of nausea, vomiting, diarrhea. The patient was diagnosed with irritable bowel syndrome. For 3 weeks, patient is slowly getting worsening numbness and tingling and it continued to progress upwards up to the upper abdomen when she presented here. Power was down to 1 x 5 with decreased sensation. The patient is seen by Dr. Bains, neurology. Lumbar puncture was done. Vital capacity was being monitored. Overnight the vital capacity dropped and patient [place] also dropped down to probably about 28. Dr. Cui because of impending respiratory failure and Dr. Rdz decided the patient to be transferred to [facility]. I spoke to the neuro police cadet, Dr. Pimentel who did accept the patient. I did discuss this with the patient too. EXAMINATION: Weakness in both lower extremities with decreased sensation below upper abdomen with decreased reflexes. The patient's pulse 99, respirations 17, blood pressure 185/87, pulse ox 98%. GENERAL: Sitting up comfortable. INVESTIGATIONS: White count 12.5, hemoglobin 13.4, potassium 4.1, BUN and creatinine is normal. The patient's CSF is showing a glucose of 62, protein of 51 nucleated cell. ASSESSMENT: 1. Possible progression of Guillain [place] syndrome. Transverse myelitis is not ruled out per Dr. Leslie Rdz. 2. Essential hypertension. 3. Hyperlipidemia. 4. Seizure disorder. 5. Bipolar disorder. The patient is being transferred to [facility] to the Neurologic Intensive Care. Copy to Dr. Reece. Discussion and discharge planning more than 35 minutes. MMODL / IJN: [id number] /
[2017-06-10 12:40] LABS: IgG - CSF 2.3 mg/dL (0.0 - 3.4); IgG/Albumin Index (CSF) 0.51 (0.00 - 0.77); Immunoglobulin G 541 mg/dL (700 - 1600)
== END 2017-06-06 14:05 | disposition short-term general hospital (02) | DRG 95 ==
LOC: EC 14:47 → 6ICU 18:35 → 6SEL 06-05 23:05 → 6ICU 06-06 07:16
PROVIDERS: ADMIT Hospitalist; ATTEND Hospitalist
PROC: 009U3ZX Drainage of Spinal Canal, Percutaneous Approach, Diagnostic (ICD-10-PCS; principal; 2017-06-05)
DX: G61.0 Guillain-Barre syndrome (principal); G82.20 Paraplegia, unspecified; G37.3 Acute transverse myelitis in demyelinating disease of central nervous system; E03.9 Hypothyroidism, unspecified; E78.5 Hyperlipidemia, unspecified; F17.200 Nicotine dependence, unspecified, uncomplicated; F31.9 Bipolar disorder, unspecified; F40.240 Claustrophobia; F41.0 Panic disorder [episodic paroxysmal anxiety]; G40.909 Epilepsy, unspecified, not intractable, without status epilepticus; G89.29 Other chronic pain; I10 Essential (primary) hypertension; K58.0 Irritable bowel syndrome with diarrhea; M50.30 Other cervical disc degeneration, unspecified cervical region; M51.36 Other intervertebral disc degeneration, lumbar region; R32 Unspecified urinary incontinence; G43.909 Migraine, unspecified, not intractable, without status migrainosus; M54.5 Low back pain; Z79.899 Other long term (current) drug therapy; Z88.6 Allergy status to analgesic agent; Z88.1 Allergy status to other antibiotic agents; Z91.040 Latex allergy status; Z88.5 Allergy status to narcotic agent; Z88.0 Allergy status to penicillin; Z88.8 Allergy status to other drugs, medicaments and biological substances; Z91.018 Allergy to other foods; Z90.710 Acquired absence of both cervix and uterus; Z82.49 Family history of ischemic heart disease and other diseases of the circulatory system
CPT/HCPCS: 36415; 36600; 70553; 72156; 72158; 80048; 80053; 81003; 82040; 82042; 82330; 82550; 82553; 82784; 82805; 82945; 83036; 83605; 83735; 83873; 83880; 83916; 84100; 84157; 84443; 84484; 85025; 85379; 85610; 85730; 87070; 87086; 87205; 87476; 88108; 89050; 93005; 96361; 96374; 96375; 96376; 99285

== ENCOUNTER 2017-06-24 15:09 | Observation (INO) | payer OTHER ==
[2017-06-24] MEDS ORDERED: fentaNYL (PF) 50 MCG/ML 2 ML AMP IV STA (16:04)
[2017-06-24] MEDS ORDERED: RX INFO: IV CONTRAST WAS GIVEN 1 EACH MISC MISCELLANE PRN (16:07)
[2017-06-24] MEDS ORDERED: diphenhydrAMINE 50 MG/ML 1 ML VIAL IVP STA (16:33)
[2017-06-24] MEDS ORDERED: methylPREDNISolone SOD SUCCI 125 MG/2 ML VIAL IV STA (16:33)
[2017-06-24] MEDS ORDERED: FAMOTIDINE 20 MG/2 ML VIAL IV STA (16:33)
[2017-06-24 16:36] LABS: Basophils % (A) 0 %; Eosinophils % (A) 0 %; HCT 45.4 % (34.0-46.0); HGB 14.9 gm/dL (11.4-16.0); Lymphocytes % (A) 19 %; MCH 32.3 pg (25.0-35.0); MCHC 32.8 g/dL (31.0-37.0); Mean Platelet Volume 9.1; Monocytes # (A) 0.8 k/uL (0-1.0); Monocytes % (A) 7 %; Neutrophils # (A) 7.8 k/uL (1.3-7.7); Neutrophils % (A) 72 %; Platelet Count 402 k/uL (150-450); RBC 4.62 m/uL (3.80-5.40); RDW 14.4 % (11.5-15.5); WBC 10.9 k/uL (3.8-10.6)
[2017-06-24 16:38] LABS: MCV 98.2 fL (80.0-100.0)
[2017-06-24 16:49] LABS: ALT 27 U/L (9-52); AST 62 U/L (14-36); Albumin 4.3 g/dL (3.5-5.0); Alkaline Phosphatase 133 U/L (38-126); Amylase 51 U/L (30-110); Anion Gap 12 mmol/L; Blood Urea Nitrogen 4 mg/dL (7-17); Calcium 9.8 mg/dL (8.4-10.2); Carbon Dioxide 25 mmol/L (22-30); Chloride 102 mmol/L (98-107); Glucose 99 mg/dL (74-99); Lipase 79 U/L (23-300); Potassium 5.5 mmol/L (3.5-5.1); Sodium 139 mmol/L (137-145); Total Protein 7.3 g/dL (6.3-8.2)
[2017-06-24 16:53] LABS: Creatine Kinase 41 U/L (30-135)
--- NOTE | 2017-06-24 16:57 | XR ---
EXAMINATION TYPE: XR chest 2V DATE OF EXAM: 06/24/2017 COMPARISON: NONE HISTORY: Cough TECHNIQUE: Frontal and lateral views of the chest are obtained. FINDINGS: There is no focal air space opacity, pleural effusion, or pneumothorax seen. The cardiac silhouette size is stable. Patient is rotated. The osseous structures are intact. There are overlyin g cardiac leads. IMPRESSION: No acute cardiopulmonary process.
[2017-06-24 17:03] LABS: Creatine Kinase MB <0.2 ng/mL (0.0-2.4)
--- NOTE | 2017-06-24 17:24 | ED ---
Neuro HPI - General Chief Complaint: Neuro Symptoms/Deficit Stated Complaint: numbness from neck down & back pain Time Seen by Provider: 06/24/17 16:03 Source: patient, RN notes reviewed Mode of arrival: wheelchair Limitations: no limitations - History of Present Illness Is the patient presenting with stroke symptoms?: No Initial Comments: This is a 47-year-old female who presents from her doctor's office with complaints of numbness to her lower extremities. She states that this actually started on May 27 she was admitted to this hospital to the ICU later to psych care back to ICU and then transferred at [facility] weren't extensive workup was done with apparently no significant findings. The concern was for beginning (she states she had MRI she's had A testing done nothing was conclusive. She was discharged on the sixth of this month she's been home was states she has to be lifted to the bathroom by her she states that unless she locked her knee she cannot stand very well she states she has numbness to her mid thorax down to her feet though she does have some back pain she states her last 3-4 days she's had trouble telling when she has to go the bathroom. She denies any fevers chills nausea vomiting sweats or other symptoms she states she can move her lower extremities just can't feel them. She is not states she's had incontinence but states she again can't tell when she has urinated defecate. She states she was given a zonegran after which she states she had a reaction with nausea vomiting she's not sure if this may have initiated the whole chain of events. - Related Data Home Medications: Home Medications Medication Instructions Recorded Confirmed Atorvastatin [Lipitor] 40 mg PO HS 04/02/17 06/24/17 Acetaminophen-Codeine 300-30mg 1 tab PO Q4H PRN 06/04/17 06/24/17 [Tylenol w/codeine #3] Butalb/Acetaminophen/Caffeine 1 tab PO BID PRN 06/04/17 06/24/17 [Fioricet 50-325-40] Lacosamide [Vimpat] 100 mg PO BID 06/04/17 06/24/17 Allergies/Adverse Reactions: Allergies Allergy/AdvReac Type Severity Reaction Status Date / Time gabapentin [From Neurontin] Allergy Itching Verified 06/24/17 16:15 latex Allergy Anaphylaxis Verified 06/24/17 16:15 naproxen [From Naprosyn] Allergy Anaphylaxis Verified 06/24/17 16:15 Penicillins Allergy Anaphylaxis Verified 06/24/17 16:15 quetiapine fumarate Allergy Itching, Verified 06/24/17 16:15 [From Seroquel] leg cramps rofecoxib [From Vioxx] Allergy Itching, Verified 06/24/17 16:15 leg cramps terfenadine [From Seldane] Allergy Rash/Hives Verified 06/24/17 16:15 tramadol Allergy Nausea & Verified 06/24/17 16:15 Vomiting/LEG CRAMPS/HEART FLUTTERS calcium carbonate [From DHEA] AdvReac Chest Pain Verified 06/24/17 16:15 calcium phosphate,dibasic AdvReac Chest Pain Verified 06/24/17 16:15 [From DHEA] clindamycin AdvReac muscle Verified 06/24/17 16:15 cramps clonidine AdvReac fast Verified 06/24/17 16:15 heartbeat, migraine dextromethorphan HBr AdvReac face/neck Verified 06/24/17 16:15 [From NyQuil] flushing diazepam [From Valium] AdvReac Nausea & Verified 06/24/17 16:15 Vomiting divalproex sodium AdvReac Nausea & Verified 06/24/17 16:15 [From Depakote] Vomiting doxylamine [From NyQuil] AdvReac face "beet Verified 06/24/17 16:15 red", elevated temp. ibuprofen [From Motrin] AdvReac abdominal Verified 06/24/17 16:15 & muscle cramps indomethacin [From Indocin] AdvReac Abdominal Verified 06/24/17 16:15 Pain,N/V ketorolac tromethamine AdvReac "built up Verified 06/24/17 16:15 [From Toradol] in system", had to be given something to reverse metoclopramide HCl AdvReac muscle Verified 06/24/17 16:15 [From Reglan] cramps prasterone (DHEA) [From DHEA] AdvReac Chest Pain Verified 06/24/17 16:15 prochlorperazine AdvReac leg Verified 06/24/17 16:15 [From Compazine] cramping propranolol AdvReac Chest Pain Verified 06/24/17 16:15 pseudoephedrine HCl AdvReac face "beet Verified 06/24/17 16:15 [From NyQuil] red", elevated temp. quetiapine [From Seroquel] AdvReac leg Verified 06/24/17 16:15 cramping sumatriptan [From Imitrex] AdvReac migrane Verified 06/24/17 16:15 sumatriptan succinate AdvReac migrane Verified 06/24/17 16:15 [From Imitrex] topiramate [From Topamax] AdvReac "built up Verified 06/24/17 16:15 in system", had to be given something to reverse trazodone AdvReac "built up Verified 06/24/17 16:15 in system", had to be given something to reverse zolpidem tartrate AdvReac "Became Verified 06/24/17 16:15 [From Ambien] violent with no memory" artificial sweetener AdvReac SEVERE Uncoded 06/24/17 15:26 MIGRAINE HEADACHE Review of Systems ROS Statement: Those systems with pertinent positive or pertinent negative responses have been documented in the HPI. ROS Other: All systems not noted in ROS Statement are negative. General Exam - General Exam Comments Initial Comments: This is a well-developed well-nourished awake alert oriented 3 female Limitations: no limitations General appearance: alert, in no apparent distress Head exam: Present: atraumatic, normocephalic, normal inspection Eye exam: Present: normal appearance, PERRL, EOMI. Absent: scleral icterus, conjunctival injection, periorbital swelling ENT exam: Present: normal exam, mucous membranes moist Neck exam: Present: normal inspection. Absent: tenderness, meningismus, lymphadenopathy Respiratory exam: Present: normal lung sounds bilaterally. Absent: respiratory distress, wheezes, rales, rhonchi, stridor Cardiovascular Exam: Present: normal rhythm, tachycardia GI/Abdominal exam: Present: soft, normal bowel sounds. Absent: distended, tenderness, guarding, rebound, rigid, bruit, pulsatile mass, hernia Extremities exam: Present: normal inspection, normal capillary refill, other ( Patient does demonstrate good range of motion of her extremities of she states she is numb to the feet legs thighs and abdomen) Back exam: Present: normal inspection, tenderness, other (Tenderness palpation over the lower thoracic and upper lumbar paraspinous region no step-off or crepitation no deformity) Neurological exam: Present: alert, oriented X3, CN II-XII intact, motor sensory deficit. Absent: reflexes normal Psychiatric exam: Present: normal affect, normal mood Skin exam: Present: warm, dry, intact, normal color. Absent: rash Stroke MDM - Lab Data Result diagrams: 06/24/17 16:10 06/24/17 16:10 Lab Results 06/24/17 06/24/17 06/24/17 Range/Units 16:10 16:10 16:10 WBC 10.9 H (3.8-10.6) k/uL RBC 4.62 (3.80-5.40) m/uL Hgb 14.9 (11.4-16.0) gm/dL Hct 45.4 (34.0-46.0) % MCV 98.2 D (80.0-100.0) fL MCH 32.3 (25.0-35.0) pg MCHC 32.8 (31.0-37.0) g/dL RDW 14.4 (11.5-15.5) % Plt Count 402 (150-450) k/uL Neutrophils % 72 % Lymphocytes % 19 % Monocytes % 7 % Eosinophils % 0 % Basophils % 0 % Neutrophils # 7.8 H (1.3-7.7) k/uL Lymphocytes # 2.0 (1.0-4.8) k/uL Monocytes # 0.8 (0-1.0) k/uL Eosinophils # 0.0 (0-0.7) k/uL Basophils # 0.0 (0-0.2) k/uL Sodium 139 (137-145) mmol/L Potassium 5.5 H (3.5-5.1) mmol/L Chloride 102 (98-107) mmol/L Carbon Dioxide 25 (22-30) mmol/L Anion Gap 12 mmol/L BUN 4 L (7-17) mg/dL Creatinine 0.51 L (0.52-1.04) mg/dL Est GFR (CKD-EPI)AfAm >90 (>60 ml/min/1.73 sqM) Est GFR (CKD-EPI)NonAf >90 (>60 ml/min/1.73 sqM) Glucose 99 (74-99) mg/dL Calcium 9.8 (8.4-10.2) mg/dL Magnesium 2.0 (1.6-2.3) mg/dL Total Bilirubin 1.0 (0.2-1.3) mg/dL AST 62 H (14-36) U/L ALT 27 (9-52) U/L Alkaline Phosphatase 133 H (38-126) U/L Total Creatine Kinase 41 (30-135) U/L CK-MB (CK-2) <0.2 (0.0-2.4) ng/mL CK-MB (CK-2) Rel Index Total Protein 7.3 (6.3-8.2) g/dL Albumin 4.3 (3.5-5.0) g/dL Amylase 51 (30-110) U/L Lipase 79 (23-300) U/L - Medical Decision Making I did review the imaging and report is degenerative changes seen to the lumbar spine no acute findings however. The remainder the workup is unremarkable patient still states she has numbness though the distribution clinically is unclear. I did discuss the case with the hospitalist service patient will be admitted with neurological consultation. - EKG Data EKG shows normal: sinus rhythm (Sinus tachycardia rate of 118. Interval 128 QRS 70 QT since QTC of 346/484 st-t wave changes.) Past Medical History Past Medical History: Hyperlipidemia, Seizure Disorder Additional Past Medical History / Comment(s): Migraines, viral meningitis x3 as a child, 1995, 2000, chronic back pain, nerve blocks 08/2016 and 12/2016. 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 Bipolar, anxiety History of Any Multi-Drug Resistant Organisms: None Reported Past Surgical History: Appendectomy, Section, Cholecystectomy, Hernia Repair, Hysterectomy, Orthopedic Surgery, Tonsillectomy, Tubal Ligation Additional Past Surgical History / Comment(s): Hiatal Hernia, umbilical hernia repair, left rotator cuff repair, bilateral knee scopes, pain clinic procedures- occipital nerve block on 01/05/2017. Past Anesthesia/Blood Transfusion Reactions: No Reported Reaction Additional Past Anesthesia/Blood Transfusion Reaction / Comment(s): Claustrophobic Past Psychological History: Anxiety, Bipolar, Panic Disorder Smoking Status: Former smoker Past Alcohol Use History: None Reported Past Drug Use History: None Reported - Past Family History Mother Family Medical History: Cancer, Dementia, Diabetes Mellitus, GERD/Reflux, Hyperlipidemia, Hypertension, Thyroid Disorder Additional Family Medical History / Comment(s): Quad CABG, cardiac stents, toes ampuated. Father History Unknown: Yes Family Medical History: No Reported History Course Vital Signs 06/24/17 06/24/17 15:22 17:25 Temperature 98.3 F Pulse Rate 133 H 117 H Respiratory 24 20 Rate Blood Pressure 161/105 162/92 O2 Sat by Pulse 99 96 Oximetry Disposition Clinical Impression: Paresthesia of bilateral legs, Back pain Disposition: ADMITTED IP TO THIS [facility] Condition: Stable Referrals: José Reece MD [Primary Care Provider] - 1-2 days
--- NOTE | 2017-06-24 17:28 | CT ---
EXAMINATION TYPE: CT thor lumbar spine w con DATE OF EXAM: 06/24/2017 COMPARISON: NONE HISTORY: Thoracic and lumbar spine pain CT DLP: 1578 mGycm Automated exposure control for dose reduction was used. CONTRAST: Performed with IV Contrast, patient injected with 100ml mL of Isovue 300. TECHNIQUE: Contiguous axial CT slices were obtained of the thoracic spine and lumbar spine as well as of the upper cervical spine. Coronal and sagittal reformats were obtained for review. FINDINGS: The visualized cervical, thoracic, and lumbar spine maintain normal vertebral body heights and alignm ent. Degenerative disc disease is seen at L2-L3 with Schmorl's node of the superior endplate of L3. S dmitry canal is limited on CT. Very mild spinal canal stenosis is seen at L2-L3. Remainder of the visu alized spinal canal demonstrates no other evidence of spinal canal stenosis. There is no acute fractu re or dislocation. Visualized ribs are intact. Minimal degenerative changes of the sacroiliac joints are seen as iliac sclerosis. The visualized portion of the bowel is nondilated. Visualized mediastinum is unremarkable with surgic al clips at the gastroesophageal junction. Scattered areas of dependent subsegmental atelectasis are noted at the lung bases and midlungs. Visualized portions of the abdomen are grossly unremarkable. Ga llbladder surgically absent. No evidence for abdominal aortic aneurysm. Entirety of the visualized co chip demonstrates subserosal fat deposition, which may relate to inflammatory bowel disease, a chronic finding. IMPRESSION: 1. 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 OVERALL EVALUATION OF THE SPINAL CANAL IS LIMITED ON CT. 2. NO EVIDENCE OF ACUTE FRACTURE OR MALALIGNMENT OF THE THORACIC SPINE OR LUMBAR SPINE. 3. DEFINITELY IDENTIFIED SUBMUCOSAL FAT DEPOSITION THROUGHOUT THE VISUALIZED COLON IS A FINDING THAT CAN BE SEEN IN CHRONIC INFLAMMATORY BOWEL DISEASE.
[2017-06-24] MEDS ORDERED: NALOXONE 0.4 MG/ML 1 ML VIAL IV PRN (18:01)
[2017-06-24] MEDS ORDERED: BUTALB/APAP/CAFF 50-325-40MG TAB PO PRN (18:04)
[2017-06-24] MEDS ORDERED: Acetaminophen-Codeine 300-30mg TAB PO PRN (18:04)
[2017-06-24] MEDS ORDERED: SODIUM CHLORIDE 0.9% 1,000 ML IV SCH (18:15)
[2017-06-24] MEDS ORDERED: ATORVASTATIN 40 MG TAB PO SCH (21:00)
[2017-06-24] MEDS: LACOSAMIDE 50 MG TABLET PO SCH (21:04)
[2017-06-24] MEDS: MORPHINE SULFATE/PF 10MG/10ML VL IVP PRN ×2 (21:29→23:49)
[2017-06-25] MEDS: MORPHINE SULFATE/PF 10MG/10ML VL IVP PRN ×3 (03:49→12:54)
[2017-06-25 06:20] LABS: Appearance,Urine Clear (Clear); Bilirubin,Urine Negative (Negative); Blood,Urine Trace (Negative); Color,Urine Yellow; Glucose,Urine (UA) Negative (Negative); Hyaline Casts,Urine 1 /lpf (0-2); Ketones,Urine Negative (Negative); Leukocyte Esterase,Urine Negative (Negative); Mucus,Urine Rare /hpf; Nitrite,Urine Negative (Negative); Protein,Urine Negative (Negative); RBC,Urine <1 /hpf (0-5); Specific Gravity,Urine 1.026 (1.001-1.035); Squamous Epithelial Cell,Urine 2 /hpf (0-4); Urobilinogen,Urine <2.0 mg/dL (<2.0); WBC,Urine 1 /hpf (0-5)
[2017-06-25 08:29] VITALS: RESP 18
[2017-06-25] MEDS: LACOSAMIDE 50 MG TABLET PO SCH (08:46)
[2017-06-25 13:13] VITALS: BP 158/105; PULSE 103; TEMP 98
[2017-06-25] MEDS ORDERED: MORPHINE ORAL SOLN 10 MG/5 ML CUP PO PRN (14:43)
--- NOTE | 2017-06-25 16:20 | P.DS ---
Providers Date of admission: 06/24/17 18:01 Attending physician: Justin Rodriguez Consults: 06/24/17 18:03 Consult Physician Routine Consulting Provider: Aman Delgado Consult Reason/Comments: Lower extremity paresthesias, back pain Do you want consulting provider notified?: Yes Primary care physician: José Cadenaqvi [facility] Course: Please refer to my HPI Patient Condition at Discharge: Stable Plan - Discharge Summary Discharge Rx Participant: Yes New Discharge Prescriptions: New methylPREDNISolone Dose Pack [Medrol Dose Pack] 4 mg PO DIRECTED #21 package Ranitidine HCl 150 mg PO BID #30 tab No Action Atorvastatin [Lipitor] 40 mg PO HS Lacosamide [Vimpat] 100 mg PO BID Butalb/Acetaminophen/Caffeine [Fioricet 50-325-40] 1 tab PO BID PRN PRN Reason: Migraine Headache Acetaminophen-Codeine 300-30mg [Tylenol w/codeine #3] 1 tab PO Q4H PRN PRN Reason: Headache Discharge Medication List Atorvastatin [Lipitor] 40 mg PO HS 04/02/17 [History] Acetaminophen-Codeine 300-30mg [Tylenol w/codeine #3] 1 tab PO Q4H PRN 06/04/17 [History] Butalb/Acetaminophen/Caffeine [Fioricet 50-325-40] 1 tab PO BID PRN 06/04/17 [ History] Lacosamide [Vimpat] 100 mg PO BID 06/04/17 [History] Ranitidine HCl 150 mg PO BID #30 tab 06/25/17 [Rx] methylPREDNISolone Dose Pack [Medrol Dose Pack] 4 mg PO DIRECTED #21 package 06/25/17 [Rx] Follow up Appointment(s)/Referral(s): José Reece MD [Primary Care Provider] - 3 Days Aman Delgado MD [STAFF PHYSICIAN] - 1 Week Activity/Diet/Wound Care/Special Instructions: [facility] - [phone] - will deliver to bedside before discharge. Discharge Disposition: HOME SELF-CARE
--- NOTE | 2017-06-25 16:20 | P.HPIM ---
History of Present Illness 47-year-old female who presents from her doctor's office with complaints of numbness to her lower extremities. She states that this actually started on May 27 she was admitted to this hospital to the ICU later to psych care back to ICU and then transferred at [facility] weren't extensive workup was done with apparently no significant findings. The concern was for beginning (she states she had MRI she's had A testing done nothing was conclusive. She was discharged on the sixth of this month she's been home was states she has to be lifted to the bathroom by her she states that unless she locked her knee she cannot stand very well she states she has numbness to her mid thorax down to her feet though she does have some back pain she states her last 3-4 days she's had trouble telling when she has to go the bathroom. She denies any fevers chills nausea vomiting sweats or other symptoms she states she can move her lower extremities just can't feel them. She is not states she's had incontinence but states she again can't tell when she has urinated defecate. She states she was given a zonegran after which she states she had a reaction with nausea vomiting she's not sure if this may have initiated the whole chain of events. Patient had multiple nonspecific symptoms was extensive evaluated in multiple hospitals and the patient was evaluated for Guillain-Cárdenas, had an LP in the past all the testing was negative. Patient as per the nursing staff able to ablate well but complains that her knees will give up and when she tries to walk. Review of Systems Review of systems: All other review of systems are negative except those mentioned in HPI Past Medical History Past Medical History: Hyperlipidemia, Seizure Disorder Additional Past Medical History / Comment(s): pt stated "she has a loss of sensation from neck down furthur stated she cannot feel when or if she is urinating or having bm .pt also noticed that food seems to get stuck more easily when eating. carries pt to br at home/hx of falls recently.pt does 'nt have a cane or walker at home. pt stated she had testing here and at [facility] but nothing found." Migraines, viral meningitis x3 as a child, 1995, 2000, chronic back pain, nerve blocks 08/2016 and 12/2016. 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 Bipolar, anxiety, History of Any Multi-Drug Resistant Organisms: None Reported Past Surgical History: Appendectomy, Section, Cholecystectomy, Hernia Repair, Hysterectomy, Orthopedic Surgery, Tonsillectomy, Tubal Ligation Additional Past Surgical History / Comment(s): Hiatal Hernia, umbilical hernia repair, left rotator cuff repair, bilateral knee scopes, pain clinic procedures- occipital nerve block on 01/05/2017. abd exploratory sx(endometreosis), 3 abd scopes 1981, 1989, 1991), lumbar puncture Past Anesthesia/Blood Transfusion Reactions: No Reported Reaction Additional Past Anesthesia/Blood Transfusion Reaction / Comment(s): Claustrophobic Smoking Status: Current every day smoker - Past Family History Mother Family Medical History: Cancer, Dementia, Diabetes Mellitus, GERD/Reflux, Hyperlipidemia, Hypertension, Thyroid Disorder Additional Family Medical History / Comment(s): Quad CABG, cardiac stents, toes ampuated. Father History Unknown: Yes Family Medical History: No Reported History Medications and Allergies Home Medications Medication Instructions Recorded Confirmed Type Atorvastatin [Lipitor] 40 mg PO HS 04/02/17 06/24/17 History Acetaminophen-Codeine 300-30mg 1 tab PO Q4H PRN 06/04/17 06/24/17 History [Tylenol w/codeine #3] Butalb/Acetaminophen/Caffeine 1 tab PO BID PRN 06/04/17 06/24/17 History [Fioricet 50-325-40] Lacosamide [Vimpat] 100 mg PO BID 06/04/17 06/24/17 History Ranitidine HCl 150 mg PO BID #30 tab 06/25/17 Rx methylPREDNISolone Dose Pack 4 mg PO DIRECTED #21 package 06/25/17 Rx [Medrol Dose Pack] Allergies Allergy/AdvReac Type Severity Reaction Status Date / Time gabapentin [From Neurontin] Allergy Itching Verified 06/24/17 20:55 Iodinated Contrast- Oral and Allergy Rash/Hives Verified 06/24/17 20:55 IV Dye latex Allergy Anaphylaxis Verified 06/24/17 20:55 naproxen [From Naprosyn] Allergy Anaphylaxis Verified 06/24/17 20:55 Penicillins Allergy Anaphylaxis Verified 06/24/17 20:55 quetiapine fumarate Allergy Itching, Verified 06/24/17 20:55 [From Seroquel] leg cramps rofecoxib [From Vioxx] Allergy Itching, Verified 06/24/17 20:55 leg cramps terfenadine [From Seldane] Allergy Rash/Hives Verified 06/24/17 20:55 tramadol Allergy Nausea & Verified 06/24/17 20:55 Vomiting/LEG CRAMPS/HEART FLUTTERS calcium carbonate [From DHEA] AdvReac Chest Pain Verified 06/24/17 20:55 calcium phosphate,dibasic AdvReac Chest Pain Verified 06/24/17 20:55 [From DHEA] clindamycin AdvReac muscle Verified 06/24/17 20:55 cramps clonidine AdvReac fast Verified 06/24/17 20:55 heartbeat, migraine dextromethorphan HBr AdvReac face/neck Verified 06/24/17 20:55 [From NyQuil] flushing diazepam [From Valium] AdvReac Nausea & Verified 06/24/17 20:55 Vomiting divalproex sodium AdvReac Nausea & Verified 06/24/17 20:55 [From Depakote] Vomiting doxylamine [From NyQuil] AdvReac face "beet Verified 06/24/17 20:55 red", elevated temp. ibuprofen [From Motrin] AdvReac abdominal Verified 06/24/17 20:55 & muscle cramps indomethacin [From Indocin] AdvReac Abdominal Verified 06/24/17 20:55 Pain,N/V ketorolac tromethamine AdvReac "built up Verified 06/24/17 20:55 [From Toradol] in system", had to be given something to reverse metoclopramide HCl AdvReac muscle Verified 06/24/17 20:55 [From Reglan] cramps prasterone (DHEA) [From DHEA] AdvReac Chest Pain Verified 06/24/17 20:55 prochlorperazine AdvReac leg Verified 06/24/17 20:55 [From Compazine] cramping propranolol AdvReac Chest Pain Verified 06/24/17 20:55 pseudoephedrine HCl AdvReac face "beet Verified 06/24/17 20:55 [From NyQuil] red", elevated temp. quetiapine [From Seroquel] AdvReac leg Verified 06/24/17 20:55 cramping sumatriptan [From Imitrex] AdvReac migrane Verified 06/24/17 20:55 sumatriptan succinate AdvReac migrane Verified 06/24/17 20:55 [From Imitrex] topiramate [From Topamax] AdvReac "built up Verified 06/24/17 20:55 in system", had to be given something to reverse trazodone AdvReac "built up Verified 06/24/17 20:55 in system", had to be given something to reverse zolpidem tartrate AdvReac "Became Verified 06/24/17 20:55 [From Ambien] violent with no memory" artificial sweetener AdvReac SEVERE Uncoded 06/24/17 20:55 MIGRAINE HEADACHE Physical Exam Vitals: Vital Signs Temp Pulse Pulse Resp BP BP Pulse Ox 06/25/17 12:00 98.0 F 103 H 18 158/105 96 06/25/17 08:00 98.8 F 118 H 18 154/98 95 06/25/17 04:00 98.5 F 120 H 16 158/94 95 06/25/17 00:00 16 06/24/17 23:39 98.5 F 128 H 16 154/102 96 06/24/17 20:00 18 06/24/17 19:38 97.8 F 129 H 18 181/119 97 06/24/17 18:01 97.7 F 120 H 20 151/94 96 06/24/17 17:25 117 H 20 162/92 96 Intake and Output 06/25/17 06/25/17 06/25/17 06:59 14:59 22:59 Other: Voiding Method Toilet # Voids 1 3 PHYSICAL EXAMINATION: GENERAL: The patient is alert and oriented x3, not in any acute distress. Well developed, well nourished. HEENT: Pupils are round and equally reacting to light. EOMI. No scleral icterus. No conjunctival pallor. Normocephalic, atraumatic. No pharyngeal erythema. No thyromegaly. CARDIOVASCULAR: S1 and S2 present. No murmurs, rubs, or gallops. PULMONARY: Chest is clear to auscultation, no wheezing or crackles. ABDOMEN: Soft, nontender, nondistended, normoactive bowel sounds. No palpable organomegaly. MUSCULOSKELETAL: No joint swelling or deformity. EXTREMITIES: No cyanosis, clubbing, or pedal edema. NEUROLOGICAL: Gross neurological examination did not reveal any focal deficits. Sensory exam was not done SKIN: No rashes. Results CBC & Chem 7: 06/24/17 16:10 06/24/17 16:10 Labs: Abnormal Lab Results - Last 24 Hours (Table) 06/24/17 06/24/17 06/25/17 Range/Units 16:10 16:10 04:25 WBC 10.9 H (3.8-10.6) k/uL Neutrophils # 7.8 H (1.3-7.7) k/uL Potassium 5.5 H (3.5-5.1) mmol/L BUN 4 L (7-17) mg/dL Creatinine 0.51 L (0.52-1.04) mg/dL AST 62 H (14-36) U/L Alkaline Phosphatase 133 H (38-126) U/L Urine Blood Trace H (Negative) Urine Mucus Rare H (None) /hpf Thrombosis Risk Factor Assmnt - Choose All That Apply Any of the Below Risk Factors Present?: Yes Each Factor Represents 1 point: Age 41-60 years, Obesity (BMI >25) Other Risk Factors: No Other congenital or acquired thrombophilia - If yes, enter type in comment: No Thrombosis Risk Factor Assessment Total Risk Factor Score: 2 Thrombosis Risk Factor Assessment Level: Low Risk Assessment and Plan Plan: -Left-sided paresthesias: Patient was extensively evaluated in the past this appears to be chronic. Etiology is not known possible differentials being narcotic seeking behavior. -Low back pain with the spinal canal stenosis., Patient will be given Medrol Dosepak and will be discharged to follow with neurology as an outpatient. -Hyperlipidemia -Seizure disorder Patient if possible will evaluated by neurology and PT and OT will be discharged after that to follow up with neurology as an outpatient.
== END 2017-06-25 16:25 | disposition home or self-care (01) ==
LOC: EC 15:09 → 3OBS 18:01
PROVIDERS: ADMIT Hospitalist; ATTEND Hospitalist
DX: R20.2 Paresthesia of skin (principal); M54.5 Low back pain; R20.0 Anesthesia of skin; E78.5 Hyperlipidemia, unspecified; G40.909 Epilepsy, unspecified, not intractable, without status epilepticus; Z91.81 History of falling; G43.909 Migraine, unspecified, not intractable, without status migrainosus; G89.29 Other chronic pain; M48.00 Spinal stenosis, site unspecified; F41.9 Anxiety disorder, unspecified; F41.0 Panic disorder [episodic paroxysmal anxiety]; E66.9 Obesity, unspecified; Z68.26 Body mass index [BMI] 26.0-26.9, adult; F17.200 Nicotine dependence, unspecified, uncomplicated; Z83.3 Family history of diabetes mellitus; Z82.49 Family history of ischemic heart disease and other diseases of the circulatory system; Z80.9 Family history of malignant neoplasm, unspecified; Z83.49 Family history of other endocrine, nutritional and metabolic diseases; Z79.899 Other long term (current) drug therapy; Z88.6 Allergy status to analgesic agent; Z88.1 Allergy status to other antibiotic agents; Z91.041 Radiographic dye allergy status; Z91.040 Latex allergy status; Z88.5 Allergy status to narcotic agent; Z88.0 Allergy status to penicillin; Z88.8 Allergy status to other drugs, medicaments and biological substances; Z91.018 Allergy to other foods
CPT/HCPCS: 99285 ×2; 96361 ×2; 96375 ×2; 96376 ×2; 96374; 36415; 93005; 97162; 97165; 80053; 82150; 82550; 82553; 83690; 83735; 85025; 81001; 71046; 72129; 72132; G0378 ×2; J1200; J2930; J3010; Q9967; J2270 ×2

== ENCOUNTER 2017-07-06 21:07 | Emergency (ER) | payer OTHER ==
[2017-07-06] MEDS ORDERED: MORPHINE SULF 5MG/10ML VL IV STA (21:23)
[2017-07-06] MEDS ORDERED: ONDANSETRON 4 MG/2 ML VIAL IVP STA ×2 (21:23→23:04)
[2017-07-06] MEDS ORDERED: SODIUM CHLORIDE 0.9% 1,000 ML IV STA (21:23)
[2017-07-06] MEDS ORDERED: diphenhydrAMINE 50 MG/ML 1 ML VIAL IVP STA (21:25)
[2017-07-06] MEDS ORDERED: ACETAMINOPHEN IV (For NPO) 1,000 MG in EMPTY BAG 1 BAG IVPB ONE (21:25)
--- NOTE | 2017-07-06 21:29 | ED ---
General Adult HPI - General Chief complaint: Headache Stated complaint: MIGRAINE Time Seen by Provider: 07/06/17 21:15 Source: patient, RN notes reviewed, old records reviewed Mode of arrival: ambulatory Limitations: no limitations - History of Present Illness Initial comments: 47-year-old female presents for evaluation of headache. Patient does have chronic migraine headaches. She takes Fioricet for these normally. Headache has failed to respond to her normal treatments. She does report some photophobia and nausea associated with this. Denies fever or chills. Denies abdominal pain. Patient has multiple medical problems, she has been evaluated for headaches many times in the emergency department. She does follow with neurology for her headaches. No head trauma. Headache has been gradual in onset. Patient had previous admission recently with lower extremity weakness, she was transferred to an outside hospital, this workup was ultimately negative. No history of fever. No vision changes. No focal weakness. - Related Data Home Medications Medication Instructions Recorded Confirmed Atorvastatin [Lipitor] 40 mg PO HS 04/02/17 07/06/17 Acetaminophen-Codeine 300-30mg 1 tab PO Q4H PRN 06/04/17 07/06/17 [Tylenol w/codeine #3] Butalb/Acetaminophen/Caffeine 1 tab PO BID PRN 06/04/17 07/06/17 [Fioricet 50-325-40] Lacosamide [Vimpat] 100 mg PO BID 06/04/17 07/06/17 HYDROcodone/APAP 7.5-325MG [[place] 1 tab PO DAILY PRN 07/06/17 07/06/17 7.5-325] Allergies Allergy/AdvReac Type Severity Reaction Status Date / Time gabapentin [From Neurontin] Allergy Itching Verified 07/06/17 21:22 Iodinated Contrast- Oral and Allergy Rash/Hives Verified 07/06/17 21:22 IV Dye latex Allergy Anaphylaxis Verified 07/06/17 21:22 naproxen [From Naprosyn] Allergy Anaphylaxis Verified 07/06/17 21:22 Penicillins Allergy Anaphylaxis Verified 07/06/17 21:22 quetiapine fumarate Allergy Itching, Verified 07/06/17 21:22 [From Seroquel] leg cramps rofecoxib [From Vioxx] Allergy Itching, Verified 07/06/17 21:22 leg cramps terfenadine [From Seldane] Allergy Rash/Hives Verified 07/06/17 21:22 tramadol Allergy Nausea & Verified 07/06/17 21:22 Vomiting/LEG CRAMPS/HEART FLUTTERS calcium carbonate [From DHEA] AdvReac Chest Pain Verified 07/06/17 21:22 calcium phosphate,dibasic AdvReac Chest Pain Verified 07/06/17 21:22 [From DHEA] clindamycin AdvReac muscle Verified 07/06/17 21:22 cramps clonidine AdvReac fast Verified 07/06/17 21:22 heartbeat, migraine dextromethorphan HBr AdvReac face/neck Verified 07/06/17 21:22 [From NyQuil] flushing diazepam [From Valium] AdvReac Nausea & Verified 07/06/17 21:22 Vomiting divalproex sodium AdvReac Nausea & Verified 07/06/17 21:22 [From Depakote] Vomiting doxylamine [From NyQuil] AdvReac face "beet Verified 07/06/17 21:22 red", elevated temp. ibuprofen [From Motrin] AdvReac abdominal Verified 07/06/17 21:22 & muscle cramps indomethacin [From Indocin] AdvReac Abdominal Verified 07/06/17 21:22 Pain,N/V ketorolac tromethamine AdvReac "built up Verified 07/06/17 21:22 [From Toradol] in system", had to be given something to reverse metoclopramide HCl AdvReac muscle Verified 07/06/17 21:22 [From Reglan] cramps prasterone (DHEA) [From DHEA] AdvReac Chest Pain Verified 07/06/17 21:22 prochlorperazine AdvReac leg Verified 07/06/17 21:22 [From Compazine] cramping propranolol AdvReac Chest Pain Verified 07/06/17 21:22 pseudoephedrine HCl AdvReac face "beet Verified 07/06/17 21:22 [From NyQuil] red", elevated temp. quetiapine [From Seroquel] AdvReac leg Verified 07/06/17 21:22 cramping sumatriptan [From Imitrex] AdvReac migrane Verified 07/06/17 21:22 sumatriptan succinate AdvReac migrane Verified 07/06/17 21:22 [From Imitrex] topiramate [From Topamax] AdvReac "built up Verified 07/06/17 21:22 in system", had to be given something to reverse trazodone AdvReac "built up Verified 07/06/17 21:22 in system", had to be given something to reverse zolpidem tartrate AdvReac "Became Verified 07/06/17 21:22 [From Ambien] violent with no memory" artificial sweetener AdvReac SEVERE Uncoded 07/06/17 21:14 MIGRAINE HEADACHE Review of Systems ROS Statement: Those systems with pertinent positive or pertinent negative responses have been documented in the HPI. ROS Other: All systems not noted in ROS Statement are negative. Past Medical History Past Medical History: Hyperlipidemia, Seizure Disorder Additional Past Medical History / Comment(s): pt stated "she has a loss of sensation from neck down furthur stated she cannot feel when or if she is urinating or having bm .pt also noticed that food seems to get stuck more easily when eating. carries pt to br at home/hx of falls recently.pt does 'nt have a cane or walker at home. pt stated she had testing here and at [facility] but nothing found." Migraines, viral meningitis x3 as a child, 1995, 2000, chronic back pain, nerve blocks 08/2016 and 12/2016. 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 Bipolar, anxiety, History of Any Multi-Drug Resistant Organisms: None Reported Past Surgical History: Appendectomy, Section, Cholecystectomy, Hernia Repair, Hysterectomy, Orthopedic Surgery, Tonsillectomy, Tubal Ligation Additional Past Surgical History / Comment(s): Hiatal Hernia, umbilical hernia repair, left rotator cuff repair, bilateral knee scopes, pain clinic procedures- occipital nerve block on 01/05/2017. abd exploratory sx(endometreosis), 3 abd scopes 1981, 1989, 1991), lumbar puncture Past Anesthesia/Blood Transfusion Reactions: No Reported Reaction Additional Past Anesthesia/Blood Transfusion Reaction / Comment(s): Claustrophobic Past Psychological History: Anxiety, Bipolar, Panic Disorder Smoking Status: Current every day smoker Past Alcohol Use History: None Reported Past Drug Use History: None Reported - Past Family History Mother Family Medical History: Cancer, Dementia, Diabetes Mellitus, GERD/Reflux, Hyperlipidemia, Hypertension, Thyroid Disorder Additional Family Medical History / Comment(s): Quad CABG, cardiac stents, toes ampuated. Father History Unknown: Yes Family Medical History: No Reported History General Exam Limitations: no limitations General appearance: alert, in no apparent distress Head exam: Present: atraumatic, normocephalic Eye exam: Present: normal appearance, PERRL, EOMI ENT exam: Present: normal exam Neck exam: Present: normal inspection, full ROM. Absent: tenderness, meningismus Respiratory exam: Present: normal lung sounds bilaterally. Absent: respiratory distress, wheezes Cardiovascular Exam: Present: normal rhythm, tachycardia GI/Abdominal exam: Present: soft. Absent: distended, tenderness Extremities exam: Present: normal inspection, normal capillary refill. Absent: pedal edema, calf tenderness Neurological exam: Present: alert, oriented X3, CN II-XII intact, normal gait. Absent: motor sensory deficit Psychiatric exam: Present: normal affect, normal mood Skin exam: Present: warm, dry, intact. Absent: cyanosis, diaphoretic Course Vital Signs 07/06/17 07/06/17 21:11 23:00 Temperature 98.2 F 98.5 F Pulse Rate 129 H 123 H Respiratory 18 18 Rate Blood Pressure 162/107 164/122 O2 Sat by Pulse 97 97 Oximetry Medical Decision Making - Medical Decision Making 47-year-old female history of migraine headache presenting with severe headache. Patient is initially noted to be tachycardic with a heart rate 129 she does have history of sinus tachycardia and has been vomiting secondary to her headache. She is given IV medication and IV fluid. On reevaluation, her heart rate is 103 which she states is baseline. Headache is improved to a 6 out of 10. She states she does live with a headache at most time. Given 1 additional dose of morphine and would prefer to try to rest at home. She states the lights in the emergency department are continuing to bother her and she would prefer to rest in her bedroom at home which is quite dark. Previous imaging reviewed including MRI brain from 10 days ago which was normal. She will follow-up with her primary care physician on the which is 2 days from now. Return with worsening or changing symptoms. Disposition Clinical Impression: Migraine, Headache Disposition: HOME SELF-CARE Condition: Fair Instructions: Migraine Headache (ED) Referrals: José Reece MD [Primary Care Provider] - 1-2 days Time of Disposition: 00:33
[2017-07-06] MEDS ORDERED: DEXAMETHASONE SOD PHOSPHATE 10 MG/ML 1 ML VIAL IM STA (21:49)
[2017-07-06] MEDS ORDERED: MORPHINE SULFATE 4 MG/ML SYRINGE IVP STA (21:49)
[2017-07-06] MEDS ORDERED: ONDANSETRON ODT 4 MG TAB PO STA (21:49)
[2017-07-06] MEDS ORDERED: MORPHINE SULFATE 4 MG/ML SYRINGE IM STA (21:49)
[2017-07-06] MEDS ORDERED: diphenhydrAMINE 50 MG/ML 1 ML VIAL IM STA (21:49)
[2017-07-06 23:01] VITALS: TEMP 98.5
[2017-07-06] MEDS ORDERED: MORPHINE SULFATE/PF 10MG/10ML VL IVP STA (23:04)
[2017-07-06] MEDS: MORPHINE SULF 5MG/10ML VL IVP STA (23:29)
[2017-07-07] MEDS ORDERED: MORPHINE SULF 5MG/10ML VL IVP STA (00:29)
[2017-07-07] MEDS: MORPHINE SULF 5MG/10ML VL IVP STA (00:41)
[2017-07-07 00:53] VITALS: BP 162/119; PULSE 113; RESP 20
== END 2017-07-07 00:56 | disposition home or self-care (01) ==
LOC: EC 21:07
DX: G43.909 Migraine, unspecified, not intractable, without status migrainosus (principal); R00.0 Tachycardia, unspecified; G40.909 Epilepsy, unspecified, not intractable, without status epilepticus; E78.5 Hyperlipidemia, unspecified; F17.200 Nicotine dependence, unspecified, uncomplicated; Z79.899 Other long term (current) drug therapy; Z91.040 Latex allergy status; Z91.041 Radiographic dye allergy status; Z88.5 Allergy status to narcotic agent; Z88.6 Allergy status to analgesic agent; Z88.0 Allergy status to penicillin; Z88.1 Allergy status to other antibiotic agents; Z88.8 Allergy status to other drugs, medicaments and biological substances; Z91.018 Allergy to other foods; Z53.8 Procedure and treatment not carried out for other reasons
CPT/HCPCS: 99283; 96374; 96375; 96372 ×3; J2270 ×3; J1200; J1100; J2405

== ENCOUNTER 2017-07-24 09:24 | Day surgery (SDC) | payer OTHER ==
[2017-07-23 08:47] VITALS: BMI 25.1
[2017-07-24 11:06] VITALS: RESP 16; TEMP 98
[2017-07-24] MEDS ORDERED: LIDOCAINE 1% 20 ML VIAL (10MG/ML) FOR IV START INTRADERMA ONE (11:13)
[2017-07-24] MEDS ORDERED: PROPOFOL 10 MG/ML 20 ML VIAL IV ONE (12:01)
[2017-07-24] MEDS ORDERED: LIDOCAINE 1% INJ 10MG/ML (20 ML MDV) ONE (12:01)
[2017-07-24] MEDS ORDERED: ONDANSETRON 4 MG/2 ML VIAL ONE (12:01)
--- NOTE | 2017-07-24 12:04 | P.GSHP ---
History of Present Illness H&P Date: 07/24/17 Chief Complaint: GERD, nausea This a 47-year-old female who's had issues with GERD and nausea. Patient had a recent emergency room visit for nausea and dehydration. Her x-rays at that time showed possible enteritis or ileus. Patient presents today for EGD. Past Medical History Past Medical History: Hyperlipidemia, Seizure Disorder Additional Past Medical History / Comment(s): PT STATES "NO FEELING FROM CHEST DOWN," USES WALKER. she cannot feel when or if she is urinating or having bm. STATES food seems to get stuck more easily when eating. carries pt to br at home/hx of falls recently. STATES had testing here and at the [facility] but nothing found." Migraines, viral meningitis x3 as a child, 1995, 2000, chronic back pain , nerve blocks 08/2016 and 12/2016. Last seizure 07/22/2017, "ABSENTEE SEIZURES. HX TACHYCARDIA. History of Any Multi-Drug Resistant Organisms: None Reported Past Surgical History: Appendectomy, Section, Cholecystectomy, Hernia Repair, Hysterectomy, Orthopedic Surgery, Tonsillectomy, Tubal Ligation Additional Past Surgical History / Comment(s): Hiatal Hernia, umbilical hernia repair, left rotator cuff repair, bilateral knee scopes, pain clinic procedures- occipital nerve block on 01/05/2017. abd exploratory sx(endometreosis), 3 abd scopes 1981, 1989, 1991), lumbar puncture. EGD. Past Anesthesia/Blood Transfusion Reactions: No Reported Reaction Additional Past Anesthesia/Blood Transfusion Reaction / Comment(s): Claustrophobic Smoking Status: Current every day smoker - Past Family History Mother Family Medical History: Cancer, Dementia, Diabetes Mellitus, GERD/Reflux, Hyperlipidemia, Hypertension, Thyroid Disorder Additional Family Medical History / Comment(s): Quad CABG, cardiac stents, toes ampuated. Father History Unknown: Yes Family Medical History: No Reported History Medications and Allergies Home Medications Medication Instructions Recorded Confirmed Type Atorvastatin [Lipitor] 40 mg PO HS 04/02/17 07/24/17 History Acetaminophen-Codeine 300-30mg 1 tab PO DAILY PRN 06/04/17 07/24/17 History [Tylenol w/codeine #3] Butalb/Acetaminophen/Caffeine 1 tab PO BID PRN 06/04/17 07/24/17 History [Fioricet 50-325-40] Lacosamide [Vimpat] 100 mg PO BID 06/04/17 07/24/17 History HYDROcodone/APAP 7.5-325MG [[place] 1 tab PO DAILY PRN 07/06/17 07/24/17 History 7.5-325] Allergies Allergy/AdvReac Type Severity Reaction Status Date / Time gabapentin [From Neurontin] Allergy Itching Verified 07/23/17 08:23 latex Allergy Anaphylaxis Verified 07/23/17 08:23 naproxen [From Naprosyn] Allergy Anaphylaxis Verified 07/23/17 08:23 Penicillins Allergy Anaphylaxis Verified 07/23/17 08:23 quetiapine fumarate Allergy Itching, Verified 07/23/17 08:23 [From Seroquel] leg cramps rofecoxib [From Vioxx] Allergy Itching, Verified 07/23/17 08:23 leg cramps terfenadine [From Seldane] Allergy Rash/Hives Verified 07/23/17 08:23 tramadol Allergy Nausea & Verified 07/23/17 08:23 Vomiting/LEG CRAMPS/HEART FLUTTERS calcium carbonate [From DHEA] AdvReac Chest Pain Verified 07/23/17 08:23 calcium phosphate,dibasic AdvReac Chest Pain Verified 07/23/17 08:23 [From DHEA] clindamycin AdvReac muscle Verified 07/23/17 08:23 cramps clonidine AdvReac fast Verified 07/23/17 08:23 heartbeat, migraine dextromethorphan HBr AdvReac face/neck Verified 07/23/17 08:23 [From NyQuil] flushing diazepam [From Valium] AdvReac Nausea & Verified 07/23/17 08:23 Vomiting divalproex sodium AdvReac Nausea & Verified 07/23/17 08:23 [From Depakote] Vomiting doxylamine [From NyQuil] AdvReac face "beet Verified 07/23/17 08:23 red", elevated temp. ibuprofen [From Motrin] AdvReac abdominal Verified 07/23/17 08:23 & muscle cramps indomethacin [From Indocin] AdvReac Abdominal Verified 07/23/17 08:23 Pain,N/V ketorolac tromethamine AdvReac "built up Verified 07/23/17 08:23 [From Toradol] in system", had to be given something to reverse metoclopramide HCl AdvReac muscle Verified 07/23/17 08:23 [From Reglan] cramps prasterone (DHEA) [From DHEA] AdvReac Chest Pain Verified 07/23/17 08:23 prochlorperazine AdvReac leg Verified 07/23/17 08:23 [From Compazine] cramping propranolol AdvReac Chest Pain Verified 07/23/17 08:23 pseudoephedrine HCl AdvReac face "beet Verified 07/23/17 08:23 [From NyQuil] red", elevated temp. quetiapine [From Seroquel] AdvReac leg Verified 07/23/17 08:23 cramping sumatriptan [From Imitrex] AdvReac migrane Verified 07/23/17 08:23 sumatriptan succinate AdvReac migrane Verified 07/23/17 08:23 [From Imitrex] topiramate [From Topamax] AdvReac "built up Verified 07/23/17 08:23 in system", had to be given something to reverse trazodone AdvReac "built up Verified 07/23/17 08:23 in system", had to be given something to reverse zolpidem tartrate AdvReac "Became Verified 07/23/17 08:23 [From Ambien] violent with no memory" artificial sweetener AdvReac SEVERE Uncoded 07/23/17 08:23 MIGRAINE HEADACHE Surgical - Exam Vital Signs Temp Pulse Resp BP Pulse Ox 98 F 92 16 121/84 99 07/24/17 11:05 07/24/17 11:05 07/24/17 11:05 07/24/17 11:05 07/24/17 11:05 - General well developed, no distress - Eyes PERRL - ENT normal pinna - Neck no masses - Respiratory normal expansion - Cardiovascular Rhythm: regular - Abdomen Abdomen: soft, non tender Assessment and Plan Assessment: Chronic nausea and GERD. We'll perform EGD.
--- NOTE | 2017-07-24 12:15 | P.OP ---
Date of Procedure: 07/24/17 Preoperative Diagnosis: GERD Nausea Postoperative Diagnosis: Antral gastritis Gastritis of fundus No evidence of GE junction obstruction Procedure(s) Performed: EGD Anesthesia: MAC Surgeon: Dean Trejo Pathology: other (Antrum, fundus) Condition: stable Disposition: PACU Description of Procedure: The patient's placed on the endoscopy table in the lateral position. She received IV sedation. The gastroscope placed oropharynx and passed into the esophagus and into the stomach. The scope was then placed through the pylorus. The first and second portion of duodenum appeared normal. Scope was then brought back the antrum this appeared mildly inflamed. A biopsies was performed. The scope was then retroflexed the remainder of the stomach was examined. In the fundal area there appeared to be some inflammation stomach and this was biopsied. The GE junction was at 40 cm. There is no evidence of hiatal hernia. The distal esophagus appeared minimally inflamed. The proximal esophagus appeared normal. Scope was withdrawn for patient.
[2017-07-24] MEDS ORDERED: DEXAMETHASONE SOD PHOS (MDV) 100 MG/10 ML VIAL IV ONE (12:41)
[2017-07-24 12:50] VITALS: BP 121/73; PULSE 100
== END 2017-07-24 13:16 | disposition home or self-care (01) ==
LOC: ORWHC2ENDO 09:24
PROVIDERS: ATTEND Surgery
DX: K31.9 Disease of stomach and duodenum, unspecified (principal); K29.70 Gastritis, unspecified, without bleeding; E78.5 Hyperlipidemia, unspecified; G40.A09 Absence epileptic syndrome, not intractable, without status epilepticus; G43.909 Migraine, unspecified, not intractable, without status migrainosus; F41.9 Anxiety disorder, unspecified; F31.9 Bipolar disorder, unspecified; Z79.899 Other long term (current) drug therapy; Z88.5 Allergy status to narcotic agent; Z88.0 Allergy status to penicillin; Z88.8 Allergy status to other drugs, medicaments and biological substances; Z88.6 Allergy status to analgesic agent; Z91.040 Latex allergy status; F17.210 Nicotine dependence, cigarettes, uncomplicated
CPT/HCPCS: 88305; 43239; J2405; J2001; J1100; J2704

== ENCOUNTER 2017-08-24 22:49 | Emergency (ER) | payer OTHER ==
[2017-08-24 23:15] VITALS: BP 178/114; PULSE 111; RESP 18; TEMP 98.2
[2017-08-24] MEDS ORDERED: MORPHINE SULFATE 4 MG/ML SYRINGE IM STA (23:42)
[2017-08-24] MEDS ORDERED: diphenhydrAMINE 50 MG/ML 1 ML VIAL IM STA (23:42)
[2017-08-24] MEDS ORDERED: ONDANSETRON 4 MG/2 ML VIAL IM STA (23:43)
--- NOTE | 2017-08-24 23:45 | ED ---
Headache HPI - General Chief Complaint: Headache Stated Complaint: migraine Time Seen by Provider: 08/24/17 23:15 Source: patient, RN notes reviewed Mode of arrival: wheelchair Limitations: no limitations - History of Present Illness Initial Comments: 47-year-old female presents to the emergency department for headache. Patient chronic headache and multiple neurological issues. Patient has her typical migraine headache and elevated with medications at home. She has some photosensitivity. Denies any fever, chills, neck stiffness or neck pain. Denies any focal weakness. Denies any chest pain or shortness of breath. She states that this started earlier today. She's had slight nausea no vomiting. - Related Data Home Medications Medication Instructions Recorded Confirmed Atorvastatin [Lipitor] 40 mg PO HS 04/02/17 07/24/17 Acetaminophen-Codeine 300-30mg 1 tab PO DAILY PRN 06/04/17 07/24/17 [Tylenol w/codeine #3] Butalb/Acetaminophen/Caffeine 1 tab PO BID PRN 06/04/17 07/24/17 [Fioricet 50-325-40] Lacosamide [Vimpat] 100 mg PO BID 06/04/17 07/24/17 HYDROcodone/APAP 7.5-325MG [[place] 1 tab PO DAILY PRN 07/06/17 07/24/17 7.5-325] Allergies Allergy/AdvReac Type Severity Reaction Status Date / Time gabapentin [From Neurontin] Allergy Itching Verified 08/24/17 23:15 latex Allergy Anaphylaxis Verified 08/24/17 23:15 naproxen [From Naprosyn] Allergy Anaphylaxis Verified 08/24/17 23:15 Penicillins Allergy Anaphylaxis Verified 08/24/17 23:15 quetiapine fumarate Allergy Itching, Verified 08/24/17 23:15 [From Seroquel] leg cramps rofecoxib [From Vioxx] Allergy Itching, Verified 08/24/17 23:15 leg cramps terfenadine [From Seldane] Allergy Rash/Hives Verified 08/24/17 23:15 tramadol Allergy Nausea & Verified 08/24/17 23:15 Vomiting/LEG CRAMPS/HEART FLUTTERS calcium carbonate [From DHEA] AdvReac Chest Pain Verified 08/24/17 23:15 calcium phosphate,dibasic AdvReac Chest Pain Verified 08/24/17 23:15 [From DHEA] clindamycin AdvReac muscle Verified 08/24/17 23:15 cramps clonidine AdvReac fast Verified 08/24/17 23:15 heartbeat, migraine dextromethorphan HBr AdvReac face/neck Verified 08/24/17 23:15 [From NyQuil] flushing diazepam [From Valium] AdvReac Nausea & Verified 08/24/17 23:15 Vomiting divalproex sodium AdvReac Nausea & Verified 08/24/17 23:15 [From Depakote] Vomiting doxylamine [From NyQuil] AdvReac face "beet Verified 08/24/17 23:15 red", elevated temp. ibuprofen [From Motrin] AdvReac abdominal Verified 08/24/17 23:15 & muscle cramps indomethacin [From Indocin] AdvReac Abdominal Verified 08/24/17 23:15 Pain,N/V ketorolac tromethamine AdvReac "built up Verified 08/24/17 23:15 [From Toradol] in system", had to be given something to reverse metoclopramide HCl AdvReac muscle Verified 08/24/17 23:15 [From Reglan] cramps prasterone (DHEA) [From DHEA] AdvReac Chest Pain Verified 08/24/17 23:15 prochlorperazine AdvReac leg Verified 08/24/17 23:15 [From Compazine] cramping propranolol AdvReac Chest Pain Verified 08/24/17 23:15 pseudoephedrine HCl AdvReac face "beet Verified 08/24/17 23:15 [From NyQuil] red", elevated temp. quetiapine [From Seroquel] AdvReac leg Verified 08/24/17 23:15 cramping sumatriptan [From Imitrex] AdvReac migrane Verified 08/24/17 23:15 sumatriptan succinate AdvReac migrane Verified 08/24/17 23:15 [From Imitrex] topiramate [From Topamax] AdvReac "built up Verified 08/24/17 23:15 in system", had to be given something to reverse trazodone AdvReac "built up Verified 08/24/17 23:15 in system", had to be given something to reverse zolpidem tartrate AdvReac "Became Verified 08/24/17 23:15 [From Ambien] violent with no memory" artificial sweetener AdvReac SEVERE Uncoded 08/24/17 23:15 MIGRAINE HEADACHE Review of Systems ROS Statement: Those systems with pertinent positive or pertinent negative responses have been documented in the HPI. ROS Other: All systems not noted in ROS Statement are negative. Past Medical History Past Medical History: Hyperlipidemia, Seizure Disorder Additional Past Medical History / Comment(s): PT STATES "NO FEELING FROM CHEST DOWN," USES WALKER. she cannot feel when or if she is urinating or having bm. STATES food seems to get stuck more easily when eating. carries pt to br at home/hx of falls recently. STATES had testing here and at [facility] but nothing found." Migraines, viral meningitis x3 as a child, 1995, 2000, chronic back pain , nerve blocks 08/2016 and 12/2016. Last seizure 07/22/2017, "ABSENTEE SEIZURES. HX TACHYCARDIA. History of Any Multi-Drug Resistant Organisms: None Reported Past Surgical History: Appendectomy, Section, Cholecystectomy, Hernia Repair, Hysterectomy, Orthopedic Surgery, Tonsillectomy, Tubal Ligation Additional Past Surgical History / Comment(s): Hiatal Hernia, umbilical hernia repair, left rotator cuff repair, bilateral knee scopes, pain clinic procedures- occipital nerve block on 01/05/2017. abd exploratory sx(endometreosis), 3 abd scopes 1981, 1989, 1991), lumbar puncture. EGD. Past Anesthesia/Blood Transfusion Reactions: No Reported Reaction Additional Past Anesthesia/Blood Transfusion Reaction / Comment(s): Claustrophobic Past Psychological History: Anxiety, Bipolar, Panic Disorder Smoking Status: Current every day smoker Past Alcohol Use History: None Reported Past Drug Use History: None Reported - Past Family History Mother Family Medical History: Cancer, Dementia, Diabetes Mellitus, GERD/Reflux, Hyperlipidemia, Hypertension, Thyroid Disorder Additional Family Medical History / Comment(s): Quad CABG, cardiac stents, toes ampuated. Father History Unknown: Yes Family Medical History: No Reported History General Exam Limitations: no limitations General appearance: alert, in no apparent distress Head exam: Present: atraumatic, normocephalic, normal inspection Eye exam: Present: normal appearance, PERRL, EOMI. Absent: scleral icterus, conjunctival injection, periorbital swelling ENT exam: Present: normal exam, normal oropharynx, mucous membranes moist, TM's normal bilaterally Neck exam: Present: normal inspection, full ROM. Absent: tenderness, meningismus, lymphadenopathy Respiratory exam: Present: normal lung sounds bilaterally. Absent: respiratory distress, wheezes, rales, rhonchi, stridor Cardiovascular Exam: Present: regular rate, normal rhythm, normal heart sounds. Absent: systolic murmur, diastolic murmur, rubs, gallop, clicks Neurological exam: Present: alert, oriented X3, CN II-XII intact, reflexes normal, other (Finger to nose intact bilaterally without shooting.). Absent: motor sensory deficit Course Vital Signs 08/24/17 23:10 Temperature 98.2 F Pulse Rate 111 H Respiratory 18 Rate Blood Pressure 178/114 O2 Sat by Pulse 98 Oximetry Medical Decision Making - Medical Decision Making 47-year-old female presented for migraine headache. This chronic issue she is given IM injections and discharge patient agrees to plan. Disposition Clinical Impression: Migraine Disposition: HOME SELF-CARE Condition: Stable Instructions: Acute Headache (ED) Additional Instructions: Please return to the Emergency Department if symptoms worsen or any other concerns. Is patient prescribed a controlled substance at d/c from ED?: No Referrals: José Reece MD [Primary Care Provider] - 1-2 days Time of Disposition: 23:45
== END 2017-08-25 00:12 | disposition home or self-care (01) ==
LOC: EC 22:49
DX: G43.909 Migraine, unspecified, not intractable, without status migrainosus (principal); E78.5 Hyperlipidemia, unspecified; G40.909 Epilepsy, unspecified, not intractable, without status epilepticus; F17.200 Nicotine dependence, unspecified, uncomplicated; Z79.899 Other long term (current) drug therapy; Z88.0 Allergy status to penicillin; Z88.8 Allergy status to other drugs, medicaments and biological substances; Z88.1 Allergy status to other antibiotic agents; Z91.040 Latex allergy status; Z88.5 Allergy status to narcotic agent; Z88.6 Allergy status to analgesic agent; Z91.018 Allergy to other foods
CPT/HCPCS: 99283; 96372 ×3; J2270; J1200; J2405

== ENCOUNTER 2017-09-05 17:30 | Emergency (ER) | payer OTHER ==
[2017-09-05 17:47] VITALS: RESP 18
--- NOTE | 2017-09-05 18:22 | ED ---
General Adult HPI - General Chief complaint: Extremity Injury, Lower Stated complaint: Knee injury Time Seen by Provider: 09/05/17 17:49 Source: patient, RN notes reviewed Mode of arrival: ambulatory Limitations: no limitations - History of Present Illness Initial comments: 47-year-old female presents to the emergency department for a chief complaint of left knee and hip pain times one day. Patient states that she has mobility issues chronically and her knees give out. Patient states that she will be following up at the [facility] for this per her primary care provider. Patient states that last night she was standing and her left knee gave out. Patient fell on her left knee and her left hip. Patient currently complains of pain in both the knee and hip. Patient denies pain in the foot or ankle. Patient denies pain in the calf. Patient denies hitting her head or losing consciousness. Patient has no other complaints at this time including shortness of breath, chest pain, abdominal pain, nausea or vomiting, headache, or visual changes. - Related Data Home Medications Medication Instructions Recorded Confirmed Atorvastatin [Lipitor] 40 mg PO HS 04/02/17 07/24/17 Acetaminophen-Codeine 300-30mg 1 tab PO DAILY PRN 06/04/17 07/24/17 [Tylenol w/codeine #3] Butalb/Acetaminophen/Caffeine 1 tab PO BID PRN 06/04/17 07/24/17 [Fioricet 50-325-40] Lacosamide [Vimpat] 100 mg PO BID 06/04/17 07/24/17 HYDROcodone/APAP 7.5-325MG [[place] 1 tab PO DAILY PRN 07/06/17 07/24/17 7.5-325] Previous Rx's Medication Instructions Recorded Acetaminophen Tab [Tylenol Tab] 650 mg PO Q6H PRN #20 tablet 09/05/17 Allergies Allergy/AdvReac Type Severity Reaction Status Date / Time gabapentin [From Neurontin] Allergy Itching Verified 09/05/17 17:48 latex Allergy Anaphylaxis Verified 09/05/17 17:48 naproxen [From Naprosyn] Allergy Anaphylaxis Verified 09/05/17 17:48 Penicillins Allergy Anaphylaxis Verified 09/05/17 17:48 quetiapine fumarate Allergy Itching, Verified 09/05/17 17:48 [From Seroquel] leg cramps rofecoxib [From Vioxx] Allergy Itching, Verified 09/05/17 17:48 leg cramps terfenadine [From Seldane] Allergy Rash/Hives Verified 09/05/17 17:48 tramadol Allergy Nausea & Verified 09/05/17 17:48 Vomiting/LEG CRAMPS/HEART FLUTTERS calcium carbonate [From DHEA] AdvReac Chest Pain Verified 09/05/17 17:48 calcium phosphate,dibasic AdvReac Chest Pain Verified 09/05/17 17:48 [From DHEA] clindamycin AdvReac muscle Verified 09/05/17 17:48 cramps clonidine AdvReac fast Verified 09/05/17 17:48 heartbeat, migraine dextromethorphan HBr AdvReac face/neck Verified 09/05/17 17:48 [From NyQuil] flushing diazepam [From Valium] AdvReac Nausea & Verified 09/05/17 17:48 Vomiting divalproex sodium AdvReac Nausea & Verified 09/05/17 17:48 [From Depakote] Vomiting doxylamine [From NyQuil] AdvReac face "beet Verified 09/05/17 17:48 red", elevated temp. ibuprofen [From Motrin] AdvReac abdominal Verified 09/05/17 17:48 & muscle cramps indomethacin [From Indocin] AdvReac Abdominal Verified 09/05/17 17:48 Pain,N/V ketorolac tromethamine AdvReac "built up Verified 09/05/17 17:48 [From Toradol] in system", had to be given something to reverse metoclopramide HCl AdvReac muscle Verified 09/05/17 17:48 [From Reglan] cramps prasterone (DHEA) [From DHEA] AdvReac Chest Pain Verified 09/05/17 17:48 prochlorperazine AdvReac leg Verified 09/05/17 17:48 [From Compazine] cramping propranolol AdvReac Chest Pain Verified 09/05/17 17:48 pseudoephedrine HCl AdvReac face "beet Verified 09/05/17 17:48 [From NyQuil] red", elevated temp. quetiapine [From Seroquel] AdvReac leg Verified 09/05/17 17:48 cramping sumatriptan [From Imitrex] AdvReac migrane Verified 09/05/17 17:48 sumatriptan succinate AdvReac migrane Verified 09/05/17 17:48 [From Imitrex] topiramate [From Topamax] AdvReac "built up Verified 09/05/17 17:48 in system", had to be given something to reverse trazodone AdvReac "built up Verified 09/05/17 17:48 in system", had to be given something to reverse zolpidem tartrate AdvReac "Became Verified 09/05/17 17:48 [From Ambien] violent with no memory" artificial sweetener AdvReac SEVERE Uncoded 09/05/17 17:48 MIGRAINE HEADACHE Review of Systems ROS Statement: Those systems with pertinent positive or pertinent negative responses have been documented in the HPI. ROS Other: All systems not noted in ROS Statement are negative. Past Medical History Past Medical History: Hyperlipidemia, Seizure Disorder Additional Past Medical History / Comment(s): PT STATES "NO FEELING FROM CHEST DOWN," USES WALKER. she cannot feel when or if she is urinating or having bm. STATES food seems to get stuck more easily when eating. carries pt to br at home/hx of falls recently. STATES had testing here and at [facility] but nothing found." Migraines, viral meningitis x3 as a child, 1995, 2000, chronic back pain , nerve blocks 08/2016 and 12/2016. Last seizure 07/22/2017, "ABSENTEE SEIZURES. HX TACHYCARDIA. History of Any Multi-Drug Resistant Organisms: None Reported Past Surgical History: Appendectomy, Section, Cholecystectomy, Hernia Repair, Hysterectomy, Orthopedic Surgery, Tonsillectomy, Tubal Ligation Additional Past Surgical History / Comment(s): Hiatal Hernia, umbilical hernia repair, left rotator cuff repair, bilateral knee scopes, pain clinic procedures- occipital nerve block on 01/05/2017. abd exploratory sx(endometreosis), 3 abd scopes 1981, 1989, 1991), lumbar puncture. EGD. Past Anesthesia/Blood Transfusion Reactions: No Reported Reaction Additional Past Anesthesia/Blood Transfusion Reaction / Comment(s): Claustrophobic Past Psychological History: Anxiety, Bipolar, Panic Disorder Smoking Status: Current every day smoker Past Alcohol Use History: None Reported Past Drug Use History: None Reported - Past Family History Mother Family Medical History: Cancer, Dementia, Diabetes Mellitus, GERD/Reflux, Hyperlipidemia, Hypertension, Thyroid Disorder Additional Family Medical History / Comment(s): Quad CABG, cardiac stents, toes ampuated. Father History Unknown: Yes Family Medical History: No Reported History General Exam Limitations: no limitations General appearance: alert, in no apparent distress (Sitting in wheelchair with leg elevated in no distress. Patient is interactive.) Head exam: Present: atraumatic, normocephalic, normal inspection Neck exam: Present: normal inspection. Absent: tenderness, meningismus, lymphadenopathy Respiratory exam: Present: normal lung sounds bilaterally. Absent: respiratory distress, wheezes, rales, rhonchi, stridor Cardiovascular Exam: Present: regular rate, normal rhythm, normal heart sounds. Absent: systolic murmur, diastolic murmur, rubs, gallop, clicks Extremities exam: Present: tenderness (Tenderness to the anterior left knee and lateral left hip.), normal capillary refill (Refill less than 2 seconds and pedal pulse 2+ in the left lower extremity.), other (Patient has limited sensation in the lower extremities bilaterally which she states is a chronic condition. There is also a small 2 cm x 2 cm abrasion to the left anterior knee. Nothing suturable. No signs of infection such as cellulitic changes streaking redness or drainage from the area.). Absent: full ROM (Patient has about 30 flexion of the left knee and left hip, which she states is not abnormal. Full extension of the left knee and left hip. Full range of motion of the left ankle and foot. Full range motion of the toes.), pedal edema, joint swelling (No swelling or ecchymosis noted in the left knee or left hip.), calf tenderness (No tenderness in the left calf. No increased swelling, redness , or warmth in the left calf. Negative Homans sign.) Course Vital Signs 09/05/17 17:45 Temperature 98.3 F Pulse Rate 112 H Respiratory 18 Rate Blood Pressure 147/94 O2 Sat by Pulse 98 Oximetry Medical Decision Making - Medical Decision Making 47-year-old female since to the emergency department for a chief complaint of left knee and hip pain times one day. Patient has chronic mobility issues which she follows Dr. Reece for and will be going to [facility] for. Patient states her knee gave out yesterday. Patient fell on her left knee and left hip. Patient denies hitting her head or any other injuries. No loss of consciousness. No dizziness preceding the fall. On exam patient has a small abrasion on the anterior left knee. Nothing suturable and no infection present. Patient has tenderness to the anterior left knee and lateral left hip. Limited range of motion of both the knee and hip. Pedal pulse 2+ and cap refill less than 2 seconds. Patient has decreased sensation which is chronic. X -ray of the left knee shows patella joshua positioning. No acute fracture or dislocation evident. X-ray of the left hip shows no acute fracture or dislocation. No acute fracture or dislocation evident in the pelvis. Patient states it is painful to walk on but she always has difficulty walking and there is no change. Patient will be discharged home with follow-up to primary care. She will take Tylenol for pain. She will return to the emergency Department if she has any worsening symptoms. Disposition Clinical Impression: Knee pain, left, Hip pain, left Disposition: HOME SELF-CARE Condition: Good Instructions: Knee Pain (ED), Hip Pain (ED) Additional Instructions: Please use Tylenol for pain. Remember to rest ice and elevate the knee and hip. Follow-up with primary care in 1-2 days. Return to the emergency department if you have any worsening symptoms. Prescriptions: Acetaminophen Tab [Tylenol Tab] 650 mg PO Q6H PRN #20 tablet PRN Reason: Pain Is patient prescribed a controlled substance at d/c from ED?: No Referrals: José Reece MD [Primary Care Provider] - 1-2 days Sang Mueller DO [Doctor of Osteopathic Medicine] - 1-2 days Time of Disposition: 18:37
--- NOTE | 2017-09-05 18:28 | XR ---
EXAMINATION TYPE: XR knee 4V LT DATE OF EXAM: 09/05/2017 CLINICAL HISTORY: Left knee pain and abrasion after fall injury yesterday. TECHNIQUE: Three views of the left knee are obtained. A fourth sunrise view was acquired. COMPARISON: None. FINDINGS: Patella joshua positioning is seen. There is no acute fracture/dislocation evident in left kn ee. There is mild to moderate joint space loss medial tibiofemoral and patellofemoral compartments. T here is mild spurring medial tibiofemoral compartment. Patellar articulation is within normal limits on sunrise view. The overlying soft tissue appears unremarkable. IMPRESSION: There is no acute fracture or dislocation in the left knee.
--- NOTE | 2017-09-05 18:29 | XR ---
EXAMINATION TYPE: XR Hip LT and AP Pelvis DATE OF EXAM: 09/05/2017 COMPARISON: NONE HISTORY: Pelvic and left hip pain after fall injury yesterday. TECHNIQUE: A single AP view of the pelvis is obtained. Two views of the left hip are obtained. FINDINGS: There is no acute fracture/dislocation evident in the pelvis. The hip and sacroiliac join ts appear symmetric and unremarkable. The overlying soft tissue appears unremarkable. Two views of left hip show no acute fracture or dislocation. No focal lytic or sclerotic lesion seen in the proximal left femur. The overlying soft tissue is unremarkable. IMPRESSION: There is no acute fracture or dislocation in the pelvis or left hip.
[2017-09-05 19:20] VITALS: BP 143/110; PULSE 110; TEMP 98.7
== END 2017-09-05 19:19 | disposition home or self-care (01) ==
LOC: EC 17:30
DX: S80.212A Abrasion, left knee, initial encounter (principal); M25.552 Pain in left hip; W19.XXXA Unspecified fall, initial encounter; E78.5 Hyperlipidemia, unspecified; G40.909 Epilepsy, unspecified, not intractable, without status epilepticus; F17.200 Nicotine dependence, unspecified, uncomplicated; Z79.899 Other long term (current) drug therapy; Z88.0 Allergy status to penicillin; Z88.1 Allergy status to other antibiotic agents; Z88.5 Allergy status to narcotic agent; Z88.6 Allergy status to analgesic agent; Z88.8 Allergy status to other drugs, medicaments and biological substances; Z91.02 Food additives allergy status; Z91.040 Latex allergy status; R29.898 Other symptoms and signs involving the musculoskeletal system
CPT/HCPCS: 73502; 99283

== ENCOUNTER 2017-09-29 16:54 | Emergency (ER) | payer OTHER ==
[2017-09-29 17:19] VITALS: RESP 18
[2017-09-29 18:42] LABS: Appearance,Urine Clear (Clear); Bilirubin,Urine Negative (Negative); Blood,Urine Negative (Negative); Color,Urine Light Yellow; Glucose,Urine (UA) Negative (Negative); Ketones,Urine Negative (Negative); Leukocyte Esterase,Urine Negative (Negative); Nitrite,Urine Negative (Negative); Protein,Urine Negative (Negative); Specific Gravity,Urine 1.006 (1.001-1.035); Urobilinogen,Urine <2.0 mg/dL (<2.0)
--- NOTE | 2017-09-29 21:04 | ED ---
Back Pain HPI - General Chief Complaint: Back Pain/Injury Stated Complaint: back pain, incontinence, burning feeling both legs Time Seen by Provider: 09/29/17 20:46 Source: patient, RN notes reviewed Mode of arrival: ambulatory Limitations: no limitations - History of Present Illness Initial Comments: This is a 47-year-old female who presents to the emergency department with chief complaint of back injury. Patient states that 11 AM this morning she got out of bed and felt a pop in the right side of her back. She states that she instantly lost bladder and bowel function. She states that she has baseline decreased mobility and numbness to the bilateral lower extremities. She states that since the initial incontinence she has regained control of bladder or bowels. She complains of a burning sensation to bilateral posterior legs. She states that when she injured her back she has sudden onset of a right-sided migraine. Patient reports a history of migraine but states that this feels different. She states that typical migraines are at the back of her head and that this migraine is on the right side. She states that it is a stabbing sensation. She states that she took a [place] at approximately 11:30 with minimal relief. Patient denies fevers or chills, chest pain or shortness of breath, abdominal pain, nausea or vomiting, dizziness or weakness. - Related Data Home Medications Medication Instructions Recorded Confirmed Atorvastatin [Lipitor] 40 mg PO HS 04/02/17 09/29/17 Lacosamide [Vimpat] 100 mg PO BID 06/04/17 09/29/17 HYDROcodone/APAP 7.5-325MG [[place] 1 tab PO DAILY PRN 07/06/17 09/29/17 7.5-325] Allergies Allergy/AdvReac Type Severity Reaction Status Date / Time gabapentin [From Neurontin] Allergy Itching Verified 09/29/17 20:43 latex Allergy Anaphylaxis Verified 09/29/17 20:43 naproxen [From Naprosyn] Allergy Anaphylaxis Verified 09/29/17 20:43 Penicillins Allergy Anaphylaxis Verified 09/29/17 20:43 quetiapine fumarate Allergy Itching, Verified 09/29/17 20:43 [From Seroquel] leg cramps rofecoxib [From Vioxx] Allergy Itching, Verified 09/29/17 20:43 leg cramps terfenadine [From Seldane] Allergy Rash/Hives Verified 09/29/17 20:43 tramadol Allergy Nausea & Verified 09/29/17 20:43 Vomiting/LEG CRAMPS/HEART FLUTTERS calcium carbonate [From DHEA] AdvReac Chest Pain Verified 09/29/17 20:43 calcium phosphate,dibasic AdvReac Chest Pain Verified 09/29/17 20:43 [From DHEA] clindamycin AdvReac muscle Verified 09/29/17 20:43 cramps clonidine AdvReac fast Verified 09/29/17 20:43 heartbeat, migraine dextromethorphan HBr AdvReac face/neck Verified 09/29/17 20:43 [From NyQuil] flushing diazepam [From Valium] AdvReac Nausea & Verified 09/29/17 20:43 Vomiting divalproex sodium AdvReac Nausea & Verified 09/29/17 20:43 [From Depakote] Vomiting doxylamine [From NyQuil] AdvReac face "beet Verified 09/29/17 20:43 red", elevated temp. ibuprofen [From Motrin] AdvReac abdominal Verified 09/29/17 20:43 & muscle cramps indomethacin [From Indocin] AdvReac Abdominal Verified 09/29/17 20:43 Pain,N/V ketorolac tromethamine AdvReac "built up Verified 09/29/17 20:43 [From Toradol] in system", had to be given something to reverse metoclopramide HCl AdvReac muscle Verified 09/29/17 20:43 [From Reglan] cramps prasterone (DHEA) [From DHEA] AdvReac Chest Pain Verified 09/29/17 20:43 prochlorperazine AdvReac leg Verified 09/29/17 20:43 [From Compazine] cramping propranolol AdvReac Chest Pain Verified 09/29/17 20:43 pseudoephedrine HCl AdvReac face "beet Verified 09/29/17 20:43 [From NyQuil] red", elevated temp. quetiapine [From Seroquel] AdvReac leg Verified 09/29/17 20:43 cramping sumatriptan [From Imitrex] AdvReac migrane Verified 09/29/17 20:43 sumatriptan succinate AdvReac migrane Verified 09/29/17 20:43 [From Imitrex] topiramate [From Topamax] AdvReac "built up Verified 09/29/17 20:43 in system", had to be given something to reverse trazodone AdvReac "built up Verified 09/29/17 20:43 in system", had to be given something to reverse zolpidem tartrate AdvReac "Became Verified 09/29/17 20:43 [From Ambien] violent with no memory" artificial sweetener AdvReac SEVERE Uncoded 09/29/17 17:20 MIGRAINE HEADACHE Review of Systems ROS Statement: Those systems with pertinent positive or pertinent negative responses have been documented in the HPI. ROS Other: All systems not noted in ROS Statement are negative. Past Medical History Past Medical History: Hyperlipidemia, Seizure Disorder Additional Past Medical History / Comment(s): PT STATES "NO FEELING FROM CHEST DOWN," USES WALKER. she cannot feel when or if she is urinating or having bm. STATES food seems to get stuck more easily when eating. carries pt to br at home/hx of falls recently. STATES had testing here and at [facility] but nothing found." Migraines, viral meningitis x3 as a child, 1995, 2000, chronic back pain , nerve blocks 08/2016 and 12/2016. Last seizure 07/22/2017, "ABSENTEE SEIZURES. HX TACHYCARDIA. History of Any Multi-Drug Resistant Organisms: None Reported Past Surgical History: Appendectomy, Section, Cholecystectomy, Hernia Repair, Hysterectomy, Orthopedic Surgery, Tonsillectomy, Tubal Ligation Additional Past Surgical History / Comment(s): Hiatal Hernia, umbilical hernia repair, left rotator cuff repair, bilateral knee scopes, pain clinic procedures- occipital nerve block on 01/05/2017. abd exploratory sx(endometreosis), 3 abd scopes 1981, 1989, 1991), lumbar puncture. EGD. Past Anesthesia/Blood Transfusion Reactions: No Reported Reaction Additional Past Anesthesia/Blood Transfusion Reaction / Comment(s): Claustrophobic Past Psychological History: Anxiety, Bipolar, Panic Disorder Smoking Status: Current every day smoker Past Alcohol Use History: None Reported Past Drug Use History: None Reported - Past Family History Mother Family Medical History: Cancer, Dementia, Diabetes Mellitus, GERD/Reflux, Hyperlipidemia, Hypertension, Thyroid Disorder Additional Family Medical History / Comment(s): Quad CABG, cardiac stents, toes ampuated. Father History Unknown: Yes Family Medical History: No Reported History General Exam - General Exam Comments Initial Comments: General: Awake and alert, well-developed; in no apparent distress. HEENT: Head atraumatic, normocephalic. Pupils are equal, round and reactive to light. Extraocular movements intact. Oropharynx moist without erythema or exudate. Neck: Supple. Normal ROM. Cardiovascular: Regular rate and rhythm. No murmurs, rubs or gallops. Chest symmetrical. Pedal pulses are 2+ equal and palpable bilaterally. Respiratory: Lungs clear to auscultation bilaterally. No wheezes, rales or rhonchi. Normal respiratory effort with no use of accessory muscles. Abdomen: Soft, non-tender, non-distended. No rigidity, rebound or guarding. Normal bowel sounds in all 4 quadrants. Musculoskeletal: Limited range of motion of the bilateral lower extremities, however patient states that this is baseline. Normal range of motion and no tenderness of bilateral upper extremities. Skin: [place], warm and dry without rashes or lesions. Neurological: Alert and oriented x3. CN II-XII grossly intact. Speech is fluent and answers are appropriate. No focal neuro deficits. Psychiatric: Normal mood and affect. No overt signs of depression or anxiety noted. Limitations: no limitations Rectal exam: Present: normal inspection, normal rectal tone Course Vital Signs 09/29/17 17:17 Temperature 98.5 F Pulse Rate 114 H Respiratory 18 Rate Blood Pressure 144/111 O2 Sat by Pulse 99 Oximetry Medical Decision Making - Medical Decision Making This is a 47-year-old female who presents to the emergency department with chief complaint of low back injury. Patient reports feeling a popping sensation in her low back at 11 AM this morning and states that she lost both bowel and bladder incontinence one time. She states that she has since regained function of bladder and bowels. Rectal tone is normal. No focal neuro deficits. Patient states that she has baseline decreased mobility and paresthesias to the bilateral lower extremities. Pedal pulses are 2+ equal and palpable bilaterally. Computed tomography scan of the lumbar spine reveal no acute abnormalities. Patient also reports a history of migraines and states that she instantly developed a migraine as well. She states that her migraine feels different than normal. Computed tomography scan of the brain revealed no acute abnormalities. Patient likely suffering from lumbar strain. Recommended following up with her primary care provider. Vital signs are stable and patient is in no acute distress. She will be discharged home at this time. - Lab Data Lab Results 09/29/17 Range/Units 18:36 Urine Color Light Yellow Urine Appearance Clear (Clear) Urine pH 5.0 (5.0-8.0) Ur Specific [place] 1.006 (1.001-1.035) Urine Protein Negative (Negative) Urine Glucose (UA) Negative (Negative) Urine Ketones Negative (Negative) Urine Blood Negative (Negative) Urine Nitrite Negative (Negative) Urine Bilirubin Negative (Negative) Urine Urobilinogen <2.0 (<2.0) mg/dL Ur Leukocyte Esterase Negative (Negative) - Radiology Data Radiology results: report reviewed CT brain without contrast impression: Normal head computed tomography scan. No change. CT lumbar spine without contrast impression: Mild degenerative hypertrophic disc changes at L2 to 3. Otherwise negative exam. No fracture. Disposition Clinical Impression: Strain of lumbar region Disposition: HOME SELF-CARE Condition: Good Instructions: Low Back Strain (ED), Acute Low Back Pain (ED) Additional Instructions: Please follow up with primary care provider within 1-2 days. Return to emergency department if symptoms should worsen or any concerns arise. Is patient prescribed a controlled substance at d/c from ED?: No Referrals: José Reece MD [Primary Care Provider] - 1-2 days Time of Disposition: 21:43
--- NOTE | 2017-09-29 21:36 | CT ---
EXAMINATION TYPE: CT brain wo con DATE OF EXAM: 09/29/2017 COMPARISON: 03/04/2017 HISTORY: Migraine. Headache CT DLP: 958.4 mGycm. Automated Exposure Control for Dose Reduction was Utilized. TECHNIQUE: CT scan of the head is performed without contrast. FINDINGS: Ventricles and sulci appear normal. There is no mass effect nor midline shift. There is no sign of intracranial hemorrhage. There is no evidence of cerebral edema. Calvarium appears intact. IMPRESSION: Normal head CT scan. No change.
--- NOTE | 2017-09-29 21:39 | CT ---
EXAMINATION TYPE: CT lumbar spine wo con DATE OF EXAM: 09/29/2017 9:29 PM COMPARISON: NONE HISTORY: Low back pain, bilateral leg numbness and incontinence. CT DLP: 473.7 mGycm Automated exposure control for dose reduction was used. Unenhanced CT of the lumbar spine was performed. Bone and soft tissue window settings are submitted as well as coronal and sagittal reconstructions. Lumbar vertebra have normal alignment. There is some mild narrowing and spurring at L2-3. Posterior e lements are intact. Facet joints are intact. There is no compression fracture. There is no lumbar par aspinal mass. There is no evidence of lumbar spinal stenosis. Sacroiliac joints appear intact. Neural foramina are widely patent. IMPRESSION: Mild degenerative hypertrophic disc changes at L2-3. Otherwise negative exam. No fracture.
[2017-09-29 21:55] VITALS: BP 144/92; PULSE 93; TEMP 98
== END 2017-09-29 21:55 | disposition home or self-care (01) ==
LOC: EC 16:54
DX: S39.012A Strain of muscle, fascia and tendon of lower back, initial encounter (principal); E78.5 Hyperlipidemia, unspecified; G40.909 Epilepsy, unspecified, not intractable, without status epilepticus; F17.200 Nicotine dependence, unspecified, uncomplicated; Z79.899 Other long term (current) drug therapy; Z88.0 Allergy status to penicillin; Z88.1 Allergy status to other antibiotic agents; Z88.6 Allergy status to analgesic agent; Z91.040 Latex allergy status; Z91.018 Allergy to other foods; Z88.8 Allergy status to other drugs, medicaments and biological substances; X50.9XXA Other and unspecified overexertion or strenuous movements or postures, initial encounter
CPT/HCPCS: 70450; 72131; 81003; 99284

== ENCOUNTER 2017-11-17 14:01 | Emergency (ER) | payer OTHER ==
[2017-11-17 14:06] VITALS: BP 140/87; PULSE 104; RESP 20; TEMP 98.1
--- NOTE | 2017-11-17 14:20 | ED ---
General Adult HPI - General Chief complaint: Headache Stated complaint: migraine Time Seen by Provider: 11/17/17 14:09 Source: patient, RN notes reviewed Mode of arrival: ambulatory Limitations: no limitations - History of Present Illness Initial comments: Patient's a 47-year-old female significant past medical history for migraine headaches, presented emergency room today with chief complaint of migraine over the last 3 days. Patient states this is typical migraine for her concern of the back of the head and radiates forward. She does not photosensitivity. Patient states that she's tried her [place] at home with no relief the migraine. She states does follow-up with her neurologist for these headaches. Patient denies any new symptoms. States this is typical for migraines that she's had in the past. Patient denies any recent fever, chills, shortness of breath, chest pain, back pain, abdominal pain, nausea or vomiting, visual changes, or any other complaints. - Related Data Home Medications Medication Instructions Recorded Confirmed Atorvastatin [Lipitor] 40 mg PO DAILY 04/02/17 11/17/17 Lacosamide [Vimpat] 100 mg PO BID 06/04/17 11/17/17 HYDROcodone/APAP 7.5-325MG [[place] 1 - 2 tab PO DAILY PRN 07/06/17 11/17/17 7.5-325] Cetirizine HCl [Zyrtec] 10 mg PO DAILY 11/17/17 11/17/17 Multivitamins, Thera [Multivitamin 1 tab PO DAILY 11/17/17 11/17/17 (formulary)] Allergies Allergy/AdvReac Type Severity Reaction Status Date / Time gabapentin [From Neurontin] Allergy Itching Verified 11/17/17 14:16 latex Allergy Anaphylaxis Verified 11/17/17 14:16 naproxen [From Naprosyn] Allergy Anaphylaxis Verified 11/17/17 14:16 Penicillins Allergy Anaphylaxis Verified 11/17/17 14:16 quetiapine fumarate Allergy Itching, Verified 11/17/17 14:16 [From Seroquel] leg cramps rofecoxib [From Vioxx] Allergy Itching, Verified 11/17/17 14:16 leg cramps terfenadine [From [place]] Allergy Rash/Hives Verified 11/17/17 14:16 tramadol Allergy Nausea & Verified 11/17/17 14:16 Vomiting/LEG CRAMPS/HEART FLUTTERS calcium carbonate [From DHEA] AdvReac Chest Pain Verified 11/17/17 14:16 calcium phosphate,dibasic AdvReac Chest Pain Verified 11/17/17 14:16 [From DHEA] clindamycin AdvReac muscle Verified 11/17/17 14:16 cramps clonidine AdvReac fast Verified 11/17/17 14:16 heartbeat, migraine dextromethorphan HBr AdvReac face/neck Verified 11/17/17 14:16 [From NyQuil] flushing diazepam [From Valium] AdvReac Nausea & Verified 11/17/17 14:16 Vomiting divalproex sodium AdvReac Nausea & Verified 11/17/17 14:16 [From Depakote] Vomiting doxylamine [From NyQuil] AdvReac face "beet Verified 11/17/17 14:16 red", elevated temp. ibuprofen [From Motrin] AdvReac abdominal Verified 11/17/17 14:16 & muscle cramps indomethacin [From Indocin] AdvReac Abdominal Verified 11/17/17 14:16 Pain,N/V ketorolac tromethamine AdvReac "built up Verified 11/17/17 14:16 [From Toradol] in system", had to be given something to reverse metoclopramide HCl AdvReac muscle Verified 11/17/17 14:16 [From Reglan] cramps prasterone (DHEA) [From DHEA] AdvReac Chest Pain Verified 11/17/17 14:16 prochlorperazine AdvReac leg Verified 11/17/17 14:16 [From Compazine] cramping propranolol AdvReac Chest Pain Verified 11/17/17 14:16 pseudoephedrine HCl AdvReac face "beet Verified 11/17/17 14:16 [From NyQuil] red", elevated temp. quetiapine [From Seroquel] AdvReac leg Verified 11/17/17 14:16 cramping sumatriptan [From Imitrex] AdvReac migrane Verified 11/17/17 14:16 sumatriptan succinate AdvReac migrane Verified 11/17/17 14:16 [From Imitrex] topiramate [From Topamax] AdvReac "built up Verified 11/17/17 14:16 in system", had to be given something to reverse trazodone AdvReac "built up Verified 11/17/17 14:16 in system", had to be given something to reverse zolpidem tartrate AdvReac "Became Verified 11/17/17 14:16 [From Ambien] violent with no memory" artificial sweetener AdvReac SEVERE Uncoded 11/17/17 14:06 MIGRAINE HEADACHE Review of Systems ROS Statement: Those systems with pertinent positive or pertinent negative responses have been documented in the HPI. ROS Other: All systems not noted in ROS Statement are negative. Past Medical History Past Medical History: Hyperlipidemia, Seizure Disorder Additional Past Medical History / Comment(s): PT STATES "NO FEELING FROM CHEST DOWN," USES WALKER. she cannot feel when or if she is urinating or having bm. STATES food seems to get stuck more easily when eating. carries pt to br at home/hx of falls recently. STATES had testing here and at [facility] but nothing found." Migraines, viral meningitis x3 as a child, 1995, 2000, chronic back pain , nerve blocks 08/2016 and 12/2016. Last seizure 07/22/2017, "[place] SEIZURES. HX TACHYCARDIA. History of Any Multi-Drug Resistant Organisms: None Reported Past Surgical History: Appendectomy, Section, Cholecystectomy, Hernia Repair, Hysterectomy, Orthopedic Surgery, Tonsillectomy, Tubal Ligation Additional Past Surgical History / Comment(s): Hiatal Hernia, umbilical hernia repair, left rotator cuff repair, bilateral knee scopes, pain clinic procedures- occipital nerve block on 01/05/2017. abd exploratory sx(endometreosis), 3 abd scopes 1981, 1989, 1991), lumbar puncture. EGD. Past Anesthesia/Blood Transfusion Reactions: No Reported Reaction Additional Past Anesthesia/Blood Transfusion Reaction / Comment(s): Claustrophobic Past Psychological History: Anxiety, Bipolar, Panic Disorder Smoking Status: Current every day smoker Past Alcohol Use History: None Reported Past Drug Use History: None Reported - Past Family History Mother Family Medical History: Cancer, Dementia, Diabetes Mellitus, GERD/Reflux, Hyperlipidemia, Hypertension, Thyroid Disorder Additional Family Medical History / Comment(s): Quad CABG, cardiac stents, toes ampuated. Father History Unknown: Yes Family Medical History: No Reported History General Exam - General Exam Comments Initial Comments: General: The patient is awake and alert, in no distress, and does not appear acutely ill. Eye: Pupils are equal, round and reactive to light, extra-ocular movements are intact. No nystagmus. There is normal conjunctiva bilaterally. No signs of icterus. Ears, nose, mouth and throat: There are moist mucous membranes and no oral lesions. Neck: The neck is supple, there is no tenderness or JVD. Cardiovascular: There is a regular rate and rhythm. No murmur, rub or gallop is appreciated. Respiratory: Lungs are clear to auscultation, respirations are non-labored, breath sounds are equal. No wheezes, stridor, rales, or rhonchi. Musculoskeletal: Normal ROM, no tenderness. Strength 5/5. Sensation intact. Pulses equal bilaterally 2+. Neurological: A&O x 3. CN II-XII intact, There are no obvious motor or sensory deficits. Coordination appears grossly intact. Speech is normal. Skin: Skin is warm and dry and no rashes or lesions are noted. Psychiatric: Cooperative, appropriate mood & affect, normal judgment. Limitations: no limitations Course Vital Signs 11/17/17 14:05 Temperature 98.1 F Pulse Rate 104 H Respiratory 20 Rate Blood Pressure 140/87 O2 Sat by Pulse 99 Oximetry Medical Decision Making - Medical Decision Making Patient has a history of chronic headaches. Patient states only that works for her are allotted or morphine for these headaches. Discussed case with attending physician Dr. Lawrence. Advised patient that we would not give narcotics for her chronic headache. The emergency room. We did discuss with the patient about starting an IV to give fluids, IV Benadryl, Phenergan, steroids, Ofirmev. Patient has declined these. She states she knows that they do not work and she has refused any other treatment she states that she will not receive Dilaudid or morphine that she will go home. Patient advised to follow-up with her neurologist. Return for any other concerns. Disposition Clinical Impression: Chronic headache Disposition: HOME SELF-CARE Condition: Good Instructions: Migraine Headache (ED) Additional Instructions: Please follow-up with neurologist/family doctor in the next 2 days of symptoms have not improved. Please return to emergency room if the symptoms increase or worsen or for any other concerns. Is patient prescribed a controlled substance at d/c from ED?: No Referrals: José Reece MD [Primary Care Provider] - 1-2 days Time of Disposition: 14:33
== END 2017-11-17 14:38 | disposition home or self-care (01) ==
LOC: EC 14:01
DX: R51 Headache (principal); E78.5 Hyperlipidemia, unspecified; G40.909 Epilepsy, unspecified, not intractable, without status epilepticus; F17.200 Nicotine dependence, unspecified, uncomplicated; Z86.69 Personal history of other diseases of the nervous system and sense organs; Z79.899 Other long term (current) drug therapy; Z88.8 Allergy status to other drugs, medicaments and biological substances; Z91.040 Latex allergy status; Z88.6 Allergy status to analgesic agent; Z88.0 Allergy status to penicillin; Z88.1 Allergy status to other antibiotic agents; Z91.018 Allergy to other foods; Z98.890 Other specified postprocedural states; Z53.29 Procedure and treatment not carried out because of patient's decision for other reasons
CPT/HCPCS: 99283

== ENCOUNTER 2017-11-22 21:21 | Emergency (ER) | payer OTHER ==
[2017-11-22 21:44] VITALS: RESP 16; TEMP 98.4
[2017-11-22] MEDS ORDERED: MORPHINE SULFATE 4 MG/ML SYRINGE IM STA (22:52)
--- NOTE | 2017-11-22 23:55 | ED ---
General Adult HPI - General Chief complaint: Extremity Problem,Nontraumatic Stated complaint: Foot pain Time Seen by Provider: 11/22/17 22:09 Source: patient, RN notes reviewed Mode of arrival: wheelchair Limitations: no limitations - History of Present Illness Initial comments: 47 year old female presents to the emergency department for a chief complaint of bilateral foot pain x 2 days. Patient states she noticed the pain on night and tried to call her neurologist yesterday but their office was closed. patient describes the pain as a sharp pain that "feels like glass" in her feet. Patient denies any recent injury to her feet or back. Patient denies any increased back pain or change. Patient states she is "numb from the waist down" which is normal for her since April. Patient states she has been experiencing bilateral LE paresthesias as well as numbness from the waist down since April. SHe has been evaluated for guillan barre as well as multiple other etiologies. She has had musltiple CAT scans and MRIs in the past year. Patient states she is scheduled to see a specialist at [facility]. Patient denies any urinary incontinence or bowel incontinence. No history of chronic steroid use. No history of IVDA. No history of cancer. no fevers at home. Patient has no other complaints at this time including shortness of breath , chest pain, abdominal pain, nausea or vomiting, headache, or visual changes. - Related Data Home Medications Medication Instructions Recorded Confirmed Atorvastatin [Lipitor] 40 mg PO DAILY 04/02/17 11/17/17 Lacosamide [Vimpat] 100 mg PO BID 06/04/17 11/17/17 HYDROcodone/APAP 7.5-325MG [[place] 1 - 2 tab PO DAILY PRN 07/06/17 11/17/17 7.5-325] Cetirizine HCl [Zyrtec] 10 mg PO DAILY 11/17/17 11/17/17 Multivitamins, Thera [Multivitamin 1 tab PO DAILY 11/17/17 11/17/17 (formulary)] Allergies Allergy/AdvReac Type Severity Reaction Status Date / Time gabapentin [From Neurontin] Allergy Itching Verified 11/22/17 21:45 latex Allergy Anaphylaxis Verified 11/22/17 21:45 naproxen [From Naprosyn] Allergy Anaphylaxis Verified 11/22/17 21:45 Penicillins Allergy Anaphylaxis Verified 11/22/17 21:45 quetiapine fumarate Allergy Itching, Verified 11/22/17 21:45 [From Seroquel] leg cramps rofecoxib [From Vioxx] Allergy Itching, Verified 11/22/17 21:45 leg cramps terfenadine [From Seldane] Allergy Rash/Hives Verified 11/22/17 21:45 tramadol Allergy Nausea & Verified 11/22/17 21:45 Vomiting/LEG CRAMPS/HEART FLUTTERS calcium carbonate [From DHEA] AdvReac Chest Pain Verified 11/22/17 21:45 calcium phosphate,dibasic AdvReac Chest Pain Verified 11/22/17 21:45 [From DHEA] clindamycin AdvReac muscle Verified 11/22/17 21:45 cramps clonidine AdvReac fast Verified 11/22/17 21:45 heartbeat, migraine dextromethorphan HBr AdvReac face/neck Verified 11/22/17 21:45 [From NyQuil] flushing diazepam [From Valium] AdvReac Nausea & Verified 11/22/17 21:45 Vomiting divalproex sodium AdvReac Nausea & Verified 11/22/17 21:45 [From Depakote] Vomiting doxylamine [From NyQuil] AdvReac face "beet Verified 11/22/17 21:45 red", elevated temp. ibuprofen [From Motrin] AdvReac abdominal Verified 11/22/17 21:45 & muscle cramps indomethacin [From Indocin] AdvReac Abdominal Verified 11/22/17 21:45 Pain,N/V ketorolac tromethamine AdvReac "built up Verified 11/22/17 21:45 [From Toradol] in system", had to be given something to reverse metoclopramide HCl AdvReac muscle Verified 11/22/17 21:45 [From Reglan] cramps prasterone (DHEA) [From DHEA] AdvReac Chest Pain Verified 11/22/17 21:45 prochlorperazine AdvReac leg Verified 11/22/17 21:45 [From Compazine] cramping propranolol AdvReac Chest Pain Verified 11/22/17 21:45 pseudoephedrine HCl AdvReac face "beet Verified 11/22/17 21:45 [From NyQuil] red", elevated temp. quetiapine [From Seroquel] AdvReac leg Verified 11/22/17 21:45 cramping sumatriptan [From Imitrex] AdvReac migrane Verified 11/22/17 21:45 sumatriptan succinate AdvReac migrane Verified 11/22/17 21:45 [From Imitrex] topiramate [From Topamax] AdvReac "built up Verified 11/22/17 21:45 in system", had to be given something to reverse trazodone AdvReac "built up Verified 11/22/17 21:45 in system", had to be given something to reverse zolpidem tartrate AdvReac "Became Verified 11/22/17 21:45 [From Ambien] violent with no memory" artificial sweetener AdvReac SEVERE Uncoded 11/22/17 21:45 MIGRAINE HEADACHE Review of Systems ROS Statement: Those systems with pertinent positive or pertinent negative responses have been documented in the HPI. ROS Other: All systems not noted in ROS Statement are negative. Past Medical History Past Medical History: Hyperlipidemia, Seizure Disorder Additional Past Medical History / Comment(s): PT STATES "NO FEELING FROM CHEST DOWN," USES WALKER. she cannot feel when or if she is urinating or having bm. STATES food seems to get stuck more easily when eating. carries pt to br at home/hx of falls recently. STATES had testing here and at [facility] but nothing found." Migraines, viral meningitis x3 as a child, 1995, 2000, chronic back pain , nerve blocks 08/2016 and 12/2016. Last seizure 07/22/2017, "ABSENTEE SEIZURES. HX TACHYCARDIA. History of Any Multi-Drug Resistant Organisms: None Reported Past Surgical History: Appendectomy, Section, Cholecystectomy, Hernia Repair, Hysterectomy, Orthopedic Surgery, Tonsillectomy, Tubal Ligation Additional Past Surgical History / Comment(s): Hiatal Hernia, umbilical hernia repair, left rotator cuff repair, bilateral knee scopes, pain clinic procedures- occipital nerve block on 01/05/2017. abd exploratory sx(endometreosis), 3 abd scopes 1981, 1989, 1991), lumbar puncture. EGD. Past Anesthesia/Blood Transfusion Reactions: No Reported Reaction Additional Past Anesthesia/Blood Transfusion Reaction / Comment(s): Claustrophobic Past Psychological History: Anxiety, Bipolar, Panic Disorder Smoking Status: Current every day smoker Past Alcohol Use History: None Reported Past Drug Use History: None Reported - Past Family History Mother Family Medical History: Cancer, Dementia, Diabetes Mellitus, GERD/Reflux, Hyperlipidemia, Hypertension, Thyroid Disorder Additional Family Medical History / Comment(s): Quad CABG, cardiac stents, toes ampuated. Father History Unknown: Yes Family Medical History: No Reported History General Exam Limitations: no limitations General appearance: alert, in no apparent distress Head exam: Present: atraumatic, normocephalic, normal inspection Eye exam: Present: normal appearance, PERRL, EOMI. Absent: scleral icterus, conjunctival injection, nystagmus ENT exam: Present: normal exam, mucous membranes moist Neck exam: Present: normal inspection, full ROM. Absent: tenderness, meningismus Respiratory exam: Present: normal lung sounds bilaterally. Absent: respiratory distress, wheezes, rales, rhonchi, stridor Cardiovascular Exam: Present: regular rate, normal rhythm, normal heart sounds. Absent: systolic murmur, diastolic murmur, rubs, gallop, clicks Extremities exam: Present: full ROM (full rom of feet and toes and ankles bilaterally), tenderness (generalized tenderness to palpation of bilateral feet) , normal capillary refill (cap refill < 2 seconds in BLE. PD and PT pulses strong on doppler bilaterally.), other (sensation intact in BLE. ). Absent: pedal edema (no edema, ecchymosis, or signs of trauma of the feet), calf tenderness (no calf tenderness, warmth , swelling, or erythema bilaterally.) Neurological exam: Present: alert, oriented X3, CN II-XII intact, reflexes normal (patellar reflexes 2+ ) Expanded Neurological exam: Absent: inattentive, memory loss-remote event, memory loss- recent event, ataxia, tremor Patient oriented to: Present: person, place, time Speech: Present: fluid speech Cranial nerves: EOM's Intact: Normal, Tongue Deviation: Normal, Nystagmus: Normal Upper motor neuron: Pronator Drift: Normal Motor strength exam: RUE: 5, LUE: 5, RLE: 5, LLE: 5 Eye Response: (4) open spontaneously Motor Response: (6) obeys commands Verbal Response: (5) oriented Mauri Total: 15 Psychiatric exam: Present: normal affect, normal mood Course Vital Signs 11/22/17 11/23/17 21:41 00:10 Temperature 98.4 F 98.4 F Pulse Rate 102 H 85 Respiratory 16 16 Rate Blood Pressure 158/109 148/105 O2 Sat by Pulse 98 97 Oximetry Medical Decision Making - Medical Decision Making 47-year-old female patient presents to the emergency department for a chief complaint of bilateral foot pain. Patient states her feet feel like they are stepping on glass. Patient has been taking [place] for pain at home which has been helping somewhat with the pain. Patient states she has had ongoing radiculopathy and low back problems since April and has been evaluated for multiple etiologies. Patient has received multiple MRIs and CAT scans in the past. Patient states she wants to be evaluated for the pain. Patient denies any recent fevers patient denies any bladder or bowel changes or saddle anesthesia. Patient denies any urinary symptoms. On exam no increased low back tenderness compared to normal. Patient is able to sit up in bed without difficulty and does not appear in distress. Patient does have bilateral foot tenderness to palpation. Neurovascular intact. Full range of motion of bilateral feet. Patient is not hyperreflexic and has patellar reflexes of 2+. No myoclonus present. At this time discussed repeating CAT scan with patient and she agrees that this will likely not show any new etiology as she has not had any recent injuries. Patient was given morphine and her pain feels much better. Discussed with patient that this is likely related to her ongoing issues with radiculopathy and patient agrees. Patient agrees on following up outpatient and is not wish to be admitted at this time. She will contact her neurologist Friday morning. Patient will continue to take [place] for pain. She will follow up with primary care in 1-2 days. Patient agrees to return to the emergency Department if she has any worsening symptoms or increased pain. Patient's diastolic blood pressure is slightly elevated in the emergency department. This is likely due to pain. Patient also states her blood pressure is always elevated when she is in pain. Patient will follow-up with primary care for hypertension. She denies any shortness of breath or chest pain at this time. Disposition Clinical Impression: Paresthesias Disposition: HOME SELF-CARE Condition: Good Instructions: Paresthesia (ED) Additional Instructions: Please continue to take [place] at home for pain. Please contact neurologist on Friday. Return to the emergency department if you have any worsening symptoms, bladder or bowel changes, or increased pain. Is patient prescribed a controlled substance at d/c from ED?: No Referrals: José Reece MD [Primary Care Provider] - 1-2 days Time of Disposition: 23:54
[2017-11-23 00:11] VITALS: BP 148/105; PULSE 85
== END 2017-11-23 00:11 | disposition home or self-care (01) ==
LOC: EC 21:21
DX: R20.2 Paresthesia of skin (principal); M54.16 Radiculopathy, lumbar region; I10 Essential (primary) hypertension; M79.671 Pain in right foot; M79.672 Pain in left foot; E78.5 Hyperlipidemia, unspecified; G40.909 Epilepsy, unspecified, not intractable, without status epilepticus; F17.200 Nicotine dependence, unspecified, uncomplicated; Z79.899 Other long term (current) drug therapy; Z88.0 Allergy status to penicillin; Z88.1 Allergy status to other antibiotic agents; Z88.5 Allergy status to narcotic agent; Z88.6 Allergy status to analgesic agent; Z88.8 Allergy status to other drugs, medicaments and biological substances; Z91.02 Food additives allergy status; Z91.040 Latex allergy status; Z98.890 Other specified postprocedural states; Z82.49 Family history of ischemic heart disease and other diseases of the circulatory system
CPT/HCPCS: 99283; 96372; J2270

== ENCOUNTER 2017-11-24 16:46 | Emergency (ER) | payer OTHER ==
[2017-11-24 17:41] VITALS: BP 140/90; PULSE 120; RESP 20; TEMP 98.6
--- NOTE | 2017-11-24 21:14 | ED ---
General Adult HPI - General Chief complaint: Extremity Injury, Lower Stated complaint: bilat foot pain Time Seen by Provider: 11/24/17 21:02 Source: patient, RN notes reviewed Mode of arrival: wheelchair Limitations: no limitations - History of Present Illness Initial comments: This is a 47-year-old female who presents to the emergency department with chief complaint of bilateral foot pain. Patient states that she has chronic decreased sensation from the waist down. She states that she had a workup for [place] and everything came back negative. She reports multiple CTs and MRIs of the back. She states that her neurologist is Dr. Cid. Patient states that since Friday she has had a burning sensation in both of her feet. She states it feels like she is walking on hot glass. Patient was seen here yesterday in the emergency department and was recommended to follow-up with her neurologist. Patient states she called her neurologist today and he told her to come to the emergency department. Patient denies any injuries or trauma. Denies any history of blood clots. Denies signs of infection. Denies fevers or chills, chest pain or shortness of breath, abdominal pain, nausea or vomiting. - Related Data Home Medications Medication Instructions Recorded Confirmed Atorvastatin [Lipitor] 40 mg PO HS 04/02/17 11/24/17 Lacosamide [Vimpat] 100 mg PO BID 06/04/17 11/24/17 HYDROcodone/APAP 7.5-325MG [[place] 1 tab PO DAILY PRN 07/06/17 11/24/17 7.5-325] Cetirizine HCl [Zyrtec] 10 mg PO DAILY 11/17/17 11/24/17 Allergies Allergy/AdvReac Type Severity Reaction Status Date / Time gabapentin [From Neurontin] Allergy Itching Verified 11/24/17 20:37 latex Allergy Anaphylaxis Verified 11/24/17 20:37 naproxen [From Naprosyn] Allergy Anaphylaxis Verified 11/24/17 20:37 Penicillins Allergy Anaphylaxis Verified 11/24/17 20:37 quetiapine fumarate Allergy Itching, Verified 11/24/17 20:37 [From Seroquel] leg cramps rofecoxib [From Vioxx] Allergy Itching, Verified 11/24/17 20:37 leg cramps terfenadine [From Seldane] Allergy Rash/Hives Verified 11/24/17 20:37 tramadol Allergy Nausea & Verified 11/24/17 20:37 Vomiting/LEG CRAMPS/HEART FLUTTERS calcium carbonate [From DHEA] AdvReac Chest Pain Verified 11/24/17 20:37 calcium phosphate,dibasic AdvReac Chest Pain Verified 11/24/17 20:37 [From DHEA] clindamycin AdvReac muscle Verified 11/24/17 20:37 cramps clonidine AdvReac fast Verified 11/24/17 20:37 heartbeat, migraine dextromethorphan HBr AdvReac face/neck Verified 11/24/17 20:37 [From NyQuil] flushing diazepam [From Valium] AdvReac Nausea & Verified 11/24/17 20:37 Vomiting divalproex sodium AdvReac Nausea & Verified 11/24/17 20:37 [From Depakote] Vomiting doxylamine [From NyQuil] AdvReac face "beet Verified 11/24/17 20:37 red", elevated temp. ibuprofen [From Motrin] AdvReac abdominal Verified 11/24/17 20:37 & muscle cramps indomethacin [From Indocin] AdvReac Abdominal Verified 11/24/17 20:37 Pain,N/V ketorolac tromethamine AdvReac "built up Verified 11/24/17 20:37 [From Toradol] in system", had to be given something to reverse metoclopramide HCl AdvReac muscle Verified 11/24/17 20:37 [From Reglan] cramps prasterone (DHEA) [From DHEA] AdvReac Chest Pain Verified 11/24/17 20:37 prochlorperazine AdvReac leg Verified 11/24/17 20:37 [From Compazine] cramping propranolol AdvReac Chest Pain Verified 11/24/17 20:37 pseudoephedrine HCl AdvReac face "beet Verified 11/24/17 20:37 [From NyQuil] red", elevated temp. quetiapine [From Seroquel] AdvReac leg Verified 11/24/17 20:37 cramping sumatriptan [From Imitrex] AdvReac migrane Verified 11/24/17 20:37 sumatriptan succinate AdvReac migrane Verified 11/24/17 20:37 [From Imitrex] topiramate [From Topamax] AdvReac "built up Verified 11/24/17 20:37 in system", had to be given something to reverse trazodone AdvReac "built up Verified 11/24/17 20:37 in system", had to be given something to reverse zolpidem tartrate AdvReac "Became Verified 11/24/17 20:37 [From Ambien] violent with no memory" artificial sweetener AdvReac SEVERE Uncoded 11/24/17 17:41 MIGRAINE HEADACHE Review of Systems ROS Statement: Those systems with pertinent positive or pertinent negative responses have been documented in the HPI. ROS Other: All systems not noted in ROS Statement are negative. Past Medical History Past Medical History: Hyperlipidemia, Seizure Disorder Additional Past Medical History / Comment(s): PT STATES "NO FEELING FROM CHEST DOWN," USES WALKER. she cannot feel when or if she is urinating or having bm. STATES food seems to get stuck more easily when eating. carries pt to br at home/hx of falls recently. STATES had testing here and at [facility] but nothing found." Migraines, viral meningitis x3 as a child, 1995, 2000, chronic back pain , nerve blocks 08/2016 and 12/2016. Last seizure 07/22/2017, "ABSENTEE SEIZURES. HX TACHYCARDIA. History of Any Multi-Drug Resistant Organisms: None Reported Past Surgical History: Appendectomy, Section, Cholecystectomy, Hernia Repair, Hysterectomy, Orthopedic Surgery, Tonsillectomy, Tubal Ligation Additional Past Surgical History / Comment(s): Hiatal Hernia, umbilical hernia repair, left rotator cuff repair, bilateral knee scopes, pain clinic procedures- occipital nerve block on 01/05/2017. abd exploratory sx(endometreosis), 3 abd scopes 1981, 1989, 1991), lumbar puncture. EGD. Past Anesthesia/Blood Transfusion Reactions: No Reported Reaction Additional Past Anesthesia/Blood Transfusion Reaction / Comment(s): Claustrophobic Past Psychological History: Anxiety, Bipolar, Panic Disorder Smoking Status: Current every day smoker Past Alcohol Use History: None Reported Past Drug Use History: None Reported - Past Family History Mother Family Medical History: Cancer, Dementia, Diabetes Mellitus, GERD/Reflux, Hyperlipidemia, Hypertension, Thyroid Disorder Additional Family Medical History / Comment(s): Quad CABG, cardiac stents, toes ampuated. Father History Unknown: Yes Family Medical History: No Reported History General Exam - General Exam Comments Initial Comments: General: Awake and alert, well-developed; in no apparent distress. HEENT: Head atraumatic, normocephalic. Pupils are equal, round and reactive to light. Extraocular movements intact. Oropharynx moist without erythema or exudate. Neck: Supple. Normal ROM. Cardiovascular: Regular rate and rhythm. No murmurs, rubs or gallops. Chest symmetrical. Respiratory: Lungs clear to auscultation bilaterally. No wheezes, rales or rhonchi. Normal respiratory effort with no use of accessory muscles. Musculoskeletal: Normal range of motion of bilateral ankles and feet. Generalized tenderness on palpation of both feet. No swelling, erythema, ecchymosis or warmth noted. No calf tenderness bilaterally. Pedal and posterior tibial pulses are 2+ equal and palpable bilaterally. Patient is ambulating normally. Skin: [place], warm and dry without rashes or lesions. Neurological: Alert and oriented x3. CN II-XII grossly intact. Speech is fluent and answers are appropriate. No focal neuro deficits. Psychiatric: Normal mood and affect. No overt signs of depression or anxiety noted. Limitations: no limitations Course Vital Signs 11/24/17 17:38 Temperature 98.6 F Pulse Rate 120 H Respiratory 20 Rate Blood Pressure 140/90 O2 Sat by Pulse 99 Oximetry Medical Decision Making - Medical Decision Making This is a 47-year-old female who presents to the emergency department with chief complaint of bilateral foot pain. Patient reports seeing Dr. Cid, a neurologist. She states that she has chronic decreased sensation from the waist down. She states over the past few days she has developed bilateral burning foot pain. She states that she was here yesterday in the emergency department and was instructed to follow-up with her neurologist. Patient states that she called her neurologist today and he told her to come back to the emergency department. On physical examination, there is no swelling, erythema, ecchymosis or warmth of the lower extremities. Patient is neurovascularly intact. She denies injuries or trauma. Her vital signs are stable and she is in no acute distress. She will be discharged home at this time. She is recommended to follow-up with her neurologist. Patient is in agreement with this and voices understanding. All questions were answered. Disposition Clinical Impression: Paresthesias Disposition: HOME SELF-CARE Condition: Good Instructions: Paresthesia (ED) Additional Instructions: Please follow-up with your neurologist. Please follow up with primary care provider within 1-2 days. Return to emergency department if symptoms should worsen or any concerns arise. Is patient prescribed a controlled substance at d/c from ED?: No Referrals: José Reece MD [Primary Care Provider] - 1-2 days Time of Disposition: 21:24
== END 2017-11-24 21:30 | disposition home or self-care (01) ==
LOC: EC 16:46
DX: R20.2 Paresthesia of skin (principal); M79.671 Pain in right foot; M79.672 Pain in left foot; E78.5 Hyperlipidemia, unspecified; G40.909 Epilepsy, unspecified, not intractable, without status epilepticus; F17.200 Nicotine dependence, unspecified, uncomplicated; Z79.899 Other long term (current) drug therapy; Z88.8 Allergy status to other drugs, medicaments and biological substances; Z91.040 Latex allergy status; Z88.6 Allergy status to analgesic agent; Z88.0 Allergy status to penicillin; Z88.1 Allergy status to other antibiotic agents; Z91.018 Allergy to other foods
CPT/HCPCS: 99283

== ENCOUNTER 2017-12-25 19:44 | Emergency (ER) | payer OTHER ==
[2017-12-25] MEDS ORDERED: ACETAMINOPHEN IV (For NPO) 1,000 MG in EMPTY BAG 1 BAG IVPB STA (20:13)
[2017-12-25] MEDS ORDERED: PROMETHAZINE INJ 25 MG in SODIUM CHLORIDE 0.9% 50 ML IVPB STA (20:13)
[2017-12-25] MEDS ORDERED: diphenhydrAMINE 50 MG/ML 1 ML VIAL IVP STA (20:13)
[2017-12-25] MEDS ORDERED: SODIUM CHLORIDE 0.9% 1,000 ML IV ONE (20:15)
--- NOTE | 2017-12-25 20:18 | ED ---
Headache HPI - General Chief Complaint: Headache Stated Complaint: migraine Time Seen by Provider: 12/25/17 19:58 Mode of arrival: ambulatory Limitations: no limitations - History of Present Illness Initial Comments: 47-year-old female patient presents to the emergency department today for complaints of migraine headache. Patient states that her pain is located in the posterior head and radiates through to the right eye. Patient states that started approximately 40 hours ago. States she was at her neurologist office today and he recommended she come to the emergency department for further evaluation. Patient denies any new symptoms with this headache. States that she is having nausea, pulsating halos in both eyes. Patient denies any blurred or double vision. States that her symptoms are consistent with her usual migraine pattern. States that she did take [place] at home without relief of symptoms. States that she has put ice packs and heat packs on her neck. States that she has knocked in a dark room and nothing is working. Patient denies any recent rash, fever, chills, shortness breath, chest pain, abdominal pain, nausea, vomiting, diarrhea, constipation, back pain, numbness, tingling, dizziness, weakness, hematuria, dysuria, urinary urgency, urinary frequency, or any other complaints. - Related Data Home Medications Medication Instructions Recorded Confirmed Atorvastatin [Lipitor] 40 mg PO HS 04/02/17 12/25/17 Lacosamide [Vimpat] 100 mg PO BID 06/04/17 12/25/17 HYDROcodone/APAP 7.5-325MG [[place] 1 tab PO DAILY PRN 07/06/17 12/25/17 7.5-325] Cetirizine HCl [Zyrtec] 10 mg PO HS 11/17/17 12/25/17 Allergies Allergy/AdvReac Type Severity Reaction Status Date / Time dihydroergotamine Allergy Unknown Unknown Verified 12/25/17 20:13 [From Migranal] gabapentin [From Neurontin] Allergy Itching/Swe Verified 12/25/17 20:13 lling latex Allergy Anaphylaxis Verified 12/25/17 20:13 naproxen [From Naprosyn] Allergy Anaphylaxis Verified 12/25/17 20:13 Penicillins Allergy Anaphylaxis Verified 12/25/17 20:13 quetiapine fumarate Allergy Itching, Verified 12/25/17 20:13 [From Seroquel] leg cramps rofecoxib [From Vioxx] Allergy Itching, Verified 12/25/17 20:13 leg cramps terfenadine [From Seldane] Allergy Rash/Hives Verified 12/25/17 20:13 tramadol Allergy Nausea & Verified 12/25/17 20:13 Vomiting/LEG CRAMPS/HEART FLUTTERS calcium carbonate [From DHEA] AdvReac Chest Pain Verified 12/25/17 20:13 calcium phosphate,dibasic AdvReac Chest Pain Verified 12/25/17 20:13 [From DHEA] clindamycin AdvReac muscle Verified 12/25/17 20:13 cramps clonidine AdvReac fast Verified 12/25/17 20:13 heartbeat, migraine dextromethorphan HBr AdvReac face/neck Verified 12/25/17 20:13 [From NyQuil] flushing diazepam [From Valium] AdvReac Nausea & Verified 12/25/17 20:13 Vomiting divalproex sodium AdvReac Nausea & Verified 12/25/17 20:13 [From Depakote] Vomiting doxylamine [From NyQuil] AdvReac face "beet Verified 12/25/17 20:13 red", elevated temp. ibuprofen [From Motrin] AdvReac abdominal Verified 12/25/17 20:13 & muscle cramps indomethacin [From Indocin] AdvReac Abdominal Verified 12/25/17 20:13 Pain,N/V ketorolac tromethamine AdvReac "built up Verified 12/25/17 20:13 [From Toradol] in system", had to be given something to reverse lorazepam [From Ativan] AdvReac Nausea & Verified 12/25/17 20:13 Vomiting metoclopramide HCl AdvReac muscle Verified 12/25/17 20:13 [From Reglan] cramps prasterone (DHEA) [From DHEA] AdvReac Chest Pain Verified 12/25/17 20:13 prochlorperazine AdvReac leg Verified 12/25/17 20:13 [From Compazine] cramping propranolol AdvReac Chest Pain Verified 12/25/17 20:13 pseudoephedrine HCl AdvReac face "beet Verified 12/25/17 20:13 [From NyQuil] red", elevated temp. quetiapine [From Seroquel] AdvReac leg Verified 12/25/17 20:13 cramping sumatriptan [From Imitrex] AdvReac migrane Verified 12/25/17 20:13 sumatriptan succinate AdvReac migrane Verified 12/25/17 20:13 [From Imitrex] topiramate [From Topamax] AdvReac "built up Verified 12/25/17 20:13 in system", had to be given something to reverse trazodone AdvReac "built up Verified 12/25/17 20:13 in system", had to be given something to reverse zolpidem tartrate AdvReac "Became Verified 12/25/17 20:13 [From Ambien] violent with no memory" artificial sweetener AdvReac SEVERE Uncoded 12/25/17 19:57 MIGRAINE HEADACHE Review of Systems ROS Statement: Those systems with pertinent positive or pertinent negative responses have been documented in the HPI. ROS Other: All systems not noted in ROS Statement are negative. Past Medical History Past Medical History: Hyperlipidemia, Seizure Disorder Additional Past Medical History / Comment(s): PT STATES "NO FEELING FROM CHEST DOWN," USES WALKER. she cannot feel when or if she is urinating or having bm. STATES food seems to get stuck more easily when eating. carries pt to br at home/hx of falls recently. STATES had testing here and at [facility] but nothing found." Migraines, viral meningitis x3 as a child, 1995, 2000, chronic back pain , nerve blocks 08/2016 and 12/2016. Last seizure 07/22/2017, "ABSENTEE SEIZURES. HX TACHYCARDIA. History of Any Multi-Drug Resistant Organisms: None Reported Past Surgical History: Appendectomy, Section, Cholecystectomy, Hernia Repair, Hysterectomy, Orthopedic Surgery, Tonsillectomy, Tubal Ligation Additional Past Surgical History / Comment(s): Hiatal Hernia, umbilical hernia repair, left rotator cuff repair, bilateral knee scopes, pain clinic procedures- occipital nerve block on 01/05/2017. abd exploratory sx(endometreosis), 3 abd scopes 1981, 1989, 1991), lumbar puncture. EGD. Past Anesthesia/Blood Transfusion Reactions: No Reported Reaction Additional Past Anesthesia/Blood Transfusion Reaction / Comment(s): Claustrophobic Past Psychological History: Anxiety, Bipolar, Panic Disorder Smoking Status: Current every day smoker Past Alcohol Use History: None Reported Past Drug Use History: None Reported - Past Family History Mother Family Medical History: Cancer, Dementia, Diabetes Mellitus, GERD/Reflux, Hyperlipidemia, Hypertension, Thyroid Disorder Additional Family Medical History / Comment(s): Quad CABG, cardiac stents, toes ampuated. Father History Unknown: Yes Family Medical History: No Reported History General Exam Limitations: no limitations General appearance: alert, in no apparent distress, other (This is a well- developed, well-nourished adult female patient in no acute distress. Vital signs upon presentation are temperature 98.6F, pulse 109, respirations 20, blood pressure 166/109, pulse ox 97% on room air.) Eye exam: Present: normal appearance, PERRL, EOMI. Absent: scleral icterus, conjunctival injection, nystagmus, periorbital swelling ENT exam: Present: normal exam, normal oropharynx, mucous membranes moist Respiratory exam: Present: normal lung sounds bilaterally. Absent: respiratory distress, wheezes, rales, rhonchi, stridor Cardiovascular Exam: Present: regular rate, normal rhythm, normal heart sounds. Absent: systolic murmur, diastolic murmur, rubs, gallop, clicks GI/Abdominal exam: Present: soft, normal bowel sounds. Absent: distended, tenderness, guarding, rebound, rigid Neurological exam: Present: alert, oriented X3, CN II-XII intact, other ( Strength in all 4 extremities is 5/5.) Psychiatric exam: Present: normal affect, normal mood Skin exam: Present: warm, dry, intact, normal color. Absent: rash Course Vital Signs 12/25/17 19:52 Temperature 98.6 F Pulse Rate 109 H Respiratory 20 Rate Blood Pressure 166/109 O2 Sat by Pulse 97 Oximetry Medical Decision Making - Medical Decision Making 47-year-old female patient with past medical history significant for chronic migraines presents to the emergency department today for complaints of headache. Patient reports no new symptoms, states that her current symptoms are consistent with her usual migraine pattern. Physical examination is unremarkable. Patient is neurologically intact. She was given IV Benadryl, normal saline, and Phenergan here in the emergency department. She is also given [place] IV. Patient reports very mild improvement of her symptoms, states that she is no longer nauseated. I did discuss how we would not be giving narcotic medication for her chronic migraines. She is instructed to follow-up with her primary care physician for recheck in 1-2 days. She is instructed to follow up with her neurologist tomorrow. Return parameters discussed in detail. She verbalizes understanding and agrees Disposition Clinical Impression: Migraine headache Disposition: HOME SELF-CARE Condition: Good Instructions: Migraine Headache (ED) Additional Instructions: Follow-up with your primary care physician and your neurologist for recheck if there is possible. Return here immediately for any new, worsening, or concerning symptoms. Is patient prescribed a controlled substance at d/c from ED?: No Referrals: José Reece MD [Primary Care Provider] - 1-2 days Time of Disposition: 22:18
[2017-12-25 22:39] VITALS: BP 173/97; PULSE 96; RESP 18; TEMP 97.6
== END 2017-12-25 22:40 | disposition home or self-care (01) ==
LOC: EC 19:44
DX: G40.909 Epilepsy, unspecified, not intractable, without status epilepticus (principal); E78.5 Hyperlipidemia, unspecified; G43.909 Migraine, unspecified, not intractable, without status migrainosus; F17.200 Nicotine dependence, unspecified, uncomplicated; Z88.0 Allergy status to penicillin; Z88.1 Allergy status to other antibiotic agents; Z88.5 Allergy status to narcotic agent; Z88.6 Allergy status to analgesic agent; Z88.8 Allergy status to other drugs, medicaments and biological substances; Z91.02 Food additives allergy status; Z91.040 Latex allergy status; Z79.899 Other long term (current) drug therapy
CPT/HCPCS: 96361; 96374; 96375; 99283

== ENCOUNTER 2018-06-17 17:01 | Emergency (ER) | payer OTHER ==
[2018-06-17 18:01] VITALS: RESP 18
[2018-06-17] MEDS ORDERED: HYDROmorphone 0.5 MG/0.5 ML SYRINGE IVP STA ×2 (19:04→20:39)
[2018-06-17] MEDS ORDERED: diphenhydrAMINE 50 MG/ML 1 ML VIAL IVP STA (19:05)
[2018-06-17] MEDS ORDERED: PROMETHAZINE INJ 25 MG/ML 1 ML VIAL IM STA ×2 (19:10→20:24)
[2018-06-17] MEDS ORDERED: PROMETHAZINE INJ 25 MG in SODIUM CHLORIDE 0.9% 50 ML IVPB STA (19:33)
[2018-06-17] MEDS ORDERED: SODIUM CHLORIDE 0.9% 1,000 ML IV STA (19:52)
--- NOTE | 2018-06-17 20:05 | ED ---
General Adult HPI - General Chief complaint: Headache Stated complaint: migraine/high pulse rate Time Seen by Provider: 06/17/18 18:52 Source: patient, RN notes reviewed Mode of arrival: wheelchair Limitations: no limitations - History of Present Illness Initial comments: 48-year-old female with a past medical history of migraines, seizure disorder, hyperlipidemia presents to the emergency department for a chief complaint of headache. Patient states she has had a migraine for the past 7 days. Patient states this started after she drank artificial sweetener on accident. She states that she always gets a migraine after she does this. Patient states the migraine is at the base of her skull and radiates forward. She states this is always the case with her migraines. She admits to photophobia and sensitivity to sound. Patient denies any neck pain or stiffness.Patient has no other complaints at this time including shortness of breath, chest pain, abdominal pain, nausea or vomiting, headache, or visual changes. - Related Data Home Medications Medication Instructions Recorded Confirmed Atorvastatin [Lipitor] 40 mg PO HS 04/02/17 12/25/17 Lacosamide [Vimpat] 100 mg PO BID 06/04/17 12/25/17 HYDROcodone/APAP 7.5-325MG [[place] 1 tab PO DAILY PRN 07/06/17 12/25/17 7.5-325] Allergies Allergy/AdvReac Type Severity Reaction Status Date / Time dihydroergotamine Allergy Unknown Unknown Verified 06/17/18 20:07 [From Migranal] gabapentin [From Neurontin] Allergy Itching/Swe Verified 06/17/18 20:07 lling latex Allergy Anaphylaxis Verified 06/17/18 20:07 naproxen [From Naprosyn] Allergy Anaphylaxis Verified 06/17/18 20:07 Penicillins Allergy Anaphylaxis Verified 06/17/18 20:07 quetiapine fumarate Allergy Itching, Verified 06/17/18 20:07 [From Seroquel] leg cramps rofecoxib [From Vioxx] Allergy Itching, Verified 06/17/18 20:07 leg cramps terfenadine [From [place]] Allergy Rash/Hives Verified 06/17/18 20:07 tramadol Allergy Nausea & Verified 06/17/18 20:07 Vomiting/LEG CRAMPS/HEART FLUTTERS calcium carbonate [From DHEA] AdvReac Chest Pain Verified 06/17/18 20:07 calcium phosphate,dibasic AdvReac Chest Pain Verified 06/17/18 20:07 [From DHEA] clindamycin AdvReac muscle Verified 06/17/18 20:07 cramps clonidine AdvReac fast Verified 06/17/18 20:07 heartbeat, migraine dextromethorphan HBr AdvReac face/neck Verified 06/17/18 20:07 [From NyQuil] flushing diazepam [From Valium] AdvReac Nausea & Verified 06/17/18 20:07 Vomiting divalproex sodium AdvReac Nausea & Verified 06/17/18 20:07 [From Depakote] Vomiting doxylamine [From NyQuil] AdvReac face "beet Verified 06/17/18 20:07 red", elevated temp. ibuprofen [From Motrin] AdvReac abdominal Verified 06/17/18 20:07 & muscle cramps indomethacin [From Indocin] AdvReac Abdominal Verified 06/17/18 20:07 Pain,N/V ketorolac tromethamine AdvReac "built up Verified 06/17/18 20:07 [From Toradol] in system", had to be given something to reverse lorazepam [From Ativan] AdvReac Nausea & Verified 06/17/18 20:07 Vomiting metoclopramide HCl AdvReac muscle Verified 06/17/18 20:07 [From Reglan] cramps prasterone (DHEA) [From DHEA] AdvReac Chest Pain Verified 06/17/18 20:07 prochlorperazine AdvReac leg Verified 06/17/18 20:07 [From Compazine] cramping propranolol AdvReac Chest Pain Verified 06/17/18 20:07 pseudoephedrine HCl AdvReac face "beet Verified 06/17/18 20:07 [From NyQuil] red", elevated temp. quetiapine [From Seroquel] AdvReac leg Verified 06/17/18 20:07 cramping sumatriptan [From Imitrex] AdvReac migrane Verified 06/17/18 20:07 sumatriptan succinate AdvReac migrane Verified 06/17/18 20:07 [From Imitrex] topiramate [From Topamax] AdvReac "built up Verified 06/17/18 20:07 in system", had to be given something to reverse trazodone AdvReac "built up Verified 06/17/18 20:07 in system", had to be given something to reverse zolpidem tartrate AdvReac "Became Verified 06/17/18 20:07 [From Ambien] violent with no memory" artificial sweetener AdvReac SEVERE Uncoded 06/17/18 18:00 MIGRAINE HEADACHE Review of Systems ROS Statement: Those systems with pertinent positive or pertinent negative responses have been documented in the HPI. ROS Other: All systems not noted in ROS Statement are negative. Past Medical History Past Medical History: Hyperlipidemia, Seizure Disorder Additional Past Medical History / Comment(s): PT STATES "NO FEELING FROM CHEST DOWN," USES WALKER. she cannot feel when or if she is urinating or having bm. STATES food seems to get stuck more easily when eating. carries pt to br at home/hx of falls recently. STATES had testing here and at [facility] but nothing found." Migraines, viral meningitis x3 as a child, 1995, 2000, chronic back pain, nerve blocks 08/2016 and 12/2016. Last seizure 07/22/2017, "ABSENTEE SEIZURES. HX TACHYCARDIA. History of Any Multi-Drug Resistant Organisms: None Reported Past Surgical History: Appendectomy, Section, Cholecystectomy, Hernia Repair, Hysterectomy, Orthopedic Surgery, Tonsillectomy, Tubal Ligation Additional Past Surgical History / Comment(s): Hiatal Hernia, umbilical hernia repair, left rotator cuff repair, bilateral knee scopes, pain clinic procedures- occipital nerve block on 01/05/2017. abd exploratory sx(endometreosis), 3 abd scopes 1981, 1989, 1991), lumbar puncture. EGD. Past Anesthesia/Blood Transfusion Reactions: No Reported Reaction Additional Past Anesthesia/Blood Transfusion Reaction / Comment(s): Claustrophobic Past Psychological History: Anxiety, Bipolar, Panic Disorder Smoking Status: Current every day smoker Past Alcohol Use History: None Reported Past Drug Use History: None Reported - Past Family History Mother Family Medical History: Cancer, Dementia, Diabetes Mellitus, GERD/Reflux, Hyperlipidemia, Hypertension, Thyroid Disorder Additional Family Medical History / Comment(s): Quad CABG, cardiac stents, toes ampuated. Father History Unknown: Yes Family Medical History: No Reported History General Exam Limitations: no limitations General appearance: alert, in no apparent distress Head exam: Present: atraumatic, normocephalic, normal inspection Eye exam: Present: normal appearance, PERRL, EOMI. Absent: scleral icterus, conjunctival injection, periorbital swelling ENT exam: Present: normal exam, normal oropharynx, mucous membranes moist, normal external ear exam Neck exam: Present: normal inspection, full ROM. Absent: tenderness, meningismus, lymphadenopathy Respiratory exam: Present: normal lung sounds bilaterally. Absent: respiratory distress, wheezes, rales, rhonchi, stridor Cardiovascular Exam: Present: regular rate, normal rhythm, normal heart sounds. Absent: systolic murmur, diastolic murmur, rubs, gallop, clicks Neurological exam: Present: alert, oriented X3, CN II-XII intact Expanded Patient oriented to: Present: person, place, time Speech: Present: fluid speech Cranial nerves: EOM's Intact: Normal, Tongue Deviation: Normal, Nystagmus: Normal, Facial Sensation: Normal Cerebellar function: Finger to Nose: Normal Upper motor neuron: Pronator Drift: Normal Sensory exam: Upper Extremity Light Touch: Normal, Upper Extremity Pin Prick: Normal, Lower Extremity Light Touch: Normal, Lower Extremity Pin Prick: Normal Eye Response: (4) open spontaneously Motor Response: (6) obeys commands Verbal Response: (5) oriented [place] Total: 15 Psychiatric exam: Present: normal affect, normal mood Course Vital Signs 06/17/18 17:59 Temperature 98.2 F Pulse Rate 103 H Respiratory 18 Rate Blood Pressure 141/95 O2 Sat by Pulse 99 Oximetry Medical Decision Making - Medical Decision Making 48-year-old female presents to the emergency department for a chief complaint of migraine. Patient states this has been ongoing for 7 days. Patient states that these are the same with previous migraines. She states artificial sweetener is what caused this migraine. No focal neuro deficits on exam. Patient was given Dilaudid, Phenergan, fluids, Benadryl and is having much improvement. Patient was given a second dose of Dilaudid before she left as she states her pain is almost gone if she had a little more pain medicine she can go home and sleep. Patient is not driving. Patient will follow up with her doctor return if she has any worsening symptoms. Disposition Clinical Impression: Migraine Disposition: HOME SELF-CARE Condition: Good Instructions (If sedation given, give patient instructions): Acute Headache (ED), Migraine Headache (ED) Additional Instructions: Please take pain medications at home for pain. Please follow-up with primary care in 1-2 days. Please return to the emergency department if you have any worsening symptoms. Is patient prescribed a controlled substance at d/c from ED?: No Referrals: José Reece MD [Primary Care Provider] - 1-2 days
[2018-06-17 20:47] VITALS: BP 148/102; PULSE 97
[2018-06-17 21:05] VITALS: TEMP 98.5
== END 2018-06-17 21:04 | disposition home or self-care (01) ==
LOC: EC 17:01
DX: G43.909 Migraine, unspecified, not intractable, without status migrainosus (principal); E78.5 Hyperlipidemia, unspecified; G40.909 Epilepsy, unspecified, not intractable, without status epilepticus; F17.200 Nicotine dependence, unspecified, uncomplicated; Z79.899 Other long term (current) drug therapy; Z88.0 Allergy status to penicillin; Z88.5 Allergy status to narcotic agent; Z88.1 Allergy status to other antibiotic agents; Z91.040 Latex allergy status; Z88.6 Allergy status to analgesic agent; Z88.8 Allergy status to other drugs, medicaments and biological substances; Z91.018 Allergy to other foods; Z53.8 Procedure and treatment not carried out for other reasons
CPT/HCPCS: 99283; 96374; 96375; 96376; 96361; 96372; J1200; J2550; J1170

== ENCOUNTER 2018-08-13 00:18 | Emergency (ER) | payer OTHER ==
[2018-08-13] MEDS ORDERED: SODIUM CHLORIDE 0.9% 1,000 ML IV STA (01:18)
[2018-08-13] MEDS ORDERED: diphenhydrAMINE 50 MG/ML 1 ML VIAL IVP STA (01:26)
[2018-08-13] MEDS ORDERED: HYDROmorphone 0.5 MG/0.5 ML SYRINGE IVP STA ×2 (01:26→02:31)
[2018-08-13] MEDS ORDERED: PROMETHAZINE INJ 25 MG/ML 1 ML VIAL IM STA (01:26)
--- NOTE | 2018-08-13 01:42 | ED ---
General Adult HPI - General Chief complaint: Headache Stated complaint: Migraine,Chills Sent by Dr Cid Time Seen by Provider: 08/13/18 00:55 Source: patient, RN notes reviewed Mode of arrival: wheelchair Limitations: no limitations - History of Present Illness Initial comments: 48-year-old female with a past medical history hyperlipidemia, seizures, mi graines well known to this emergency department presents for a chief complaint of headache. Patient states she has had a headache for 5 days. States this is consistent with previous migraines. States she has light sensitivity and sensitivity to sound. States that she called her doctor who told her to come to the emergency department for symptom relief. Patient states she also some neck pain. States this is mostly on the sides of her neck. Denies any significant midline pain. Patient states she has low-grade fevers however is not sure what these have been. Denies any confusion.Patient has no other complaints at this time including shortness of breath, chest pain, abdominal pain, nausea or vomiting, or visual changes. - Related Data Home Medications Medication Instructions Recorded Confirmed Atorvastatin [Lipitor] 40 mg PO HS 04/02/17 06/17/18 Lacosamide [Vimpat] 100 mg PO BID 06/04/17 06/17/18 HYDROcodone/APAP 7.5-325MG [[place] 1 tab PO TID 07/06/17 06/17/18 7.5-325] Allergies Allergy/AdvReac Type Severity Reaction Status Date / Time dihydroergotamine Allergy Unknown Unknown Verified 08/13/18 00:29 [From Migranal] gabapentin [From Neurontin] Allergy Itching/Swe Verified 08/13/18 00:29 lling latex Allergy Anaphylaxis Verified 08/13/18 00:29 naproxen [From Naprosyn] Allergy Anaphylaxis Verified 08/13/18 00:29 Penicillins Allergy Anaphylaxis Verified 08/13/18 00:29 quetiapine fumarate Allergy Itching, Verified 08/13/18 00:29 [From Seroquel] leg cramps rofecoxib [From Vioxx] Allergy Itching, Verified 08/13/18 00:29 leg cramps terfenadine [From Seldane] Allergy Rash/Hives Verified 08/13/18 00:29 tramadol Allergy Nausea & Verified 08/13/18 00:29 Vomiting/LEG CRAMPS/HEART FLUTTERS calcium carbonate [From DHEA] AdvReac Chest Pain Verified 08/13/18 00:29 calcium phosphate,dibasic AdvReac Chest Pain Verified 08/13/18 00:29 [From DHEA] clindamycin AdvReac muscle Verified 08/13/18 00:29 cramps clonidine AdvReac fast Verified 08/13/18 00:29 heartbeat, migraine dextromethorphan HBr AdvReac face/neck Verified 08/13/18 00:29 [From NyQuil] flushing diazepam [From Valium] AdvReac Nausea & Verified 08/13/18 00:29 Vomiting divalproex sodium AdvReac Nausea & Verified 08/13/18 00:29 [From Depakote] Vomiting doxylamine [From NyQuil] AdvReac face "beet Verified 08/13/18 00:29 red", elevated temp. ibuprofen [From Motrin] AdvReac abdominal Verified 08/13/18 00:29 & muscle cramps indomethacin [From Indocin] AdvReac Abdominal Verified 08/13/18 00:29 Pain,N/V ketorolac tromethamine AdvReac "built up Verified 08/13/18 00:29 [From Toradol] in system", had to be given something to reverse lorazepam [From Ativan] AdvReac Nausea & Verified 08/13/18 00:29 Vomiting metoclopramide HCl AdvReac muscle Verified 08/13/18 00:29 [From Reglan] cramps prasterone (DHEA) [From DHEA] AdvReac Chest Pain Verified 08/13/18 00:29 prochlorperazine AdvReac leg Verified 08/13/18 00:29 [From Compazine] cramping propranolol AdvReac Chest Pain Verified 08/13/18 00:29 pseudoephedrine HCl AdvReac face "beet Verified 08/13/18 00:29 [From NyQuil] red", elevated temp. quetiapine [From Seroquel] AdvReac leg Verified 08/13/18 00:29 cramping sumatriptan [From Imitrex] AdvReac migrane Verified 08/13/18 00:29 sumatriptan succinate AdvReac migrane Verified 08/13/18 00:29 [From Imitrex] topiramate [From Topamax] AdvReac "built up Verified 08/13/18 00:29 in system", had to be given something to reverse trazodone AdvReac "built up Verified 08/13/18 00:29 in system", had to be given something to reverse zolpidem tartrate AdvReac "Became Verified 08/13/18 00:29 [From Ambien] violent with no memory" zonisamide [From Zonegran] AdvReac inability Verified 08/13/18 00:30 to eat artificial sweetener AdvReac SEVERE Uncoded 08/13/18 00:29 MIGRAINE HEADACHE Review of Systems ROS Statement: Those systems with pertinent positive or pertinent negative responses have been documented in the HPI. ROS Other: All systems not noted in ROS Statement are negative. Past Medical History Past Medical History: Hyperlipidemia, Seizure Disorder Additional Past Medical History / Comment(s): Migraines, viral meningitis x3 as a child, 1995, 2000, chronic back pain, nerve blocks 08/2016 and 12/2016. Last seizure 07/22/2017, "ABSENTEE SEIZURES. HX TACHYCARDIA, CIPD History of Any Multi-Drug Resistant Organisms: None Reported Past Surgical History: Appendectomy, Section, Cholecystectomy, Hernia Repair, Hysterectomy, Orthopedic Surgery, Tonsillectomy, Tubal Ligation Additional Past Surgical History / Comment(s): Hiatal Hernia, umbilical hernia repair, left rotator cuff repair, bilateral knee scopes, pain clinic procedures- occipital nerve block on 01/05/2017. abd exploratory sx(endometreosis), 3 abd scopes 1981, 1989, 1991), lumbar puncture. EGD. nerve biopsy, Past Anesthesia/Blood Transfusion Reactions: No Reported Reaction Additional Past Anesthesia/Blood Transfusion Reaction / Comment(s): Claustrophobic Past Psychological History: Anxiety, Bipolar, Panic Disorder Smoking Status: Current every day smoker Past Alcohol Use History: None Reported Past Drug Use History: None Reported - Past Family History Mother Family Medical History: Cancer, Dementia, Diabetes Mellitus, GERD/Reflux, Hyperlipidemia, Hypertension, Thyroid Disorder Additional Family Medical History / Comment(s): Quad CABG, cardiac stents, toes ampuated. Father History Unknown: Yes Family Medical History: No Reported History General Exam Limitations: no limitations General appearance: alert, in no apparent distress Head exam: Present: atraumatic, normocephalic, normal inspection Eye exam: Present: normal appearance, PERRL, EOMI. Absent: scleral icterus, conjunctival injection, periorbital swelling ENT exam: Present: normal exam, mucous membranes moist Neck exam: Present: tenderness (Mild tenderness to left and right SCM's). Absent: meningismus (Patient has a negative Brudzinski, negative Kernig), full ROM (Patient has rotation to 20 in flexion and extension to about 20 as well), lymphadenopathy Respiratory exam: Present: normal lung sounds bilaterally. Absent: respiratory distress, wheezes, rales, rhonchi, stridor Cardiovascular Exam: Present: regular rate, normal rhythm, normal heart sounds. Absent: systolic murmur, diastolic murmur, rubs, gallop, clicks Back exam: Absent: vertebral tenderness Neurological exam: Present: alert (Sitting up straight in bed, no lethargy or confusion, pleasant and answering questions.), oriented X3, CN II-XII intact, normal gait, other (GCS 15) Psychiatric exam: Present: normal affect, normal mood Course Vital Signs 08/13/18 08/13/18 00:25 03:29 Temperature 98.3 F 97.7 F Pulse Rate 109 H 92 Respiratory 18 20 Rate Blood Pressure 151/107 131/90 O2 Sat by Pulse 100 98 Oximetry Medical Decision Making - Medical Decision Making 48 her old female with a past medical history of migraines presents for migraine headache 5 days. States she has pain in her left and right SCM areas as well. Denies any significant posterior neck pain. Patient is afebrile here in the emergency department. No evidence for meningismus. Negative Kernig, negative Brudzinski. No focal neurologic deficits. Patient states this pain is exactly consistent with previous migraines. Patient was given pain medication. Patient had complete resolution of pain after second dose. Patient feels comfortable going home at this time. Patient will follow up with primary care in 1-2 days and return here if she has any worsening symptoms. Disposition Clinical Impression: Migraine Disposition: HOME SELF-CARE Condition: Good Instructions (If sedation given, give patient instructions): Acute Headache (ED) Additional Instructions: Please follow up with primary care in 1-2 days. Please return here to the emergency department if you have any worsening symptoms. Is patient prescribed a controlled substance at d/c from ED?: No Referrals: José Reece MD [Primary Care Provider] - 1-2 days Time of Disposition: 02:59
[2018-08-13 03:32] VITALS: BP 131/90; PULSE 92; RESP 20; TEMP 97.7
== END 2018-08-13 03:32 | disposition home or self-care (01) ==
LOC: EC 00:18
DX: G43.909 Migraine, unspecified, not intractable, without status migrainosus (principal); R50.9 Fever, unspecified; E78.5 Hyperlipidemia, unspecified; G40.909 Epilepsy, unspecified, not intractable, without status epilepticus; F17.200 Nicotine dependence, unspecified, uncomplicated; Z79.891 Long term (current) use of opiate analgesic; Z79.899 Other long term (current) drug therapy; Z88.8 Allergy status to other drugs, medicaments and biological substances; Z91.040 Latex allergy status; Z88.6 Allergy status to analgesic agent; Z88.0 Allergy status to penicillin; Z88.5 Allergy status to narcotic agent; Z88.1 Allergy status to other antibiotic agents; Z91.018 Allergy to other foods
CPT/HCPCS: 99283; 96374; 96375; 96376; 96361; 96372; J1200; J2550; J1170

== ENCOUNTER 2018-08-25 20:18 | Emergency (ER) | payer OTHER ==
[2018-08-25] MEDS ORDERED: SODIUM CHLORIDE 0.9% 1,000 ML IV STA (22:49)
[2018-08-25] MEDS ORDERED: ONDANSETRON 4 MG/2 ML VIAL IVP STA (22:50)
[2018-08-25] MEDS ORDERED: diphenhydrAMINE 50 MG/ML 1 ML VIAL IVP STA (22:52)
[2018-08-25] MEDS ORDERED: HYDROmorphone 1 MG/ML 1 ML SYRINGE IVP STA (22:52)
--- NOTE | 2018-08-25 23:06 | ED ---
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 Patient reports a history of migraines and this one feels exactly the same. Patient reports the pain is in her left side causing her nausea and light sensitivity. Patient reports extensive list of ALLERGIC reactions to medications. Patient reports she typically has Dilaudid, Benadryl and Zofran to alleviate the pain. Patient reports seeing a primary care, neurologist and is treated at the [facility] for guillain barre. Patient reports taking her prescribed medication for her migraine with minimal improvement. Patient reports no sensitivity in her bilateral lower extremities and upper bilateral extremities due to guillain barre. (Alli Knowles) - Related Data Home Medications Medication Instructions Recorded Confirmed Atorvastatin [Lipitor] 40 mg PO HS 04/02/17 08/25/18 Lacosamide [Vimpat] 100 mg PO BID 06/04/17 08/25/18 HYDROcodone/APAP 7.5-325MG [[place] 1 tab PO TID 07/06/17 08/25/18 7.5-325] Allergies Allergy/AdvReac Type Severity Reaction Status Date / Time dihydroergotamine Allergy Unknown Unknown Verified 08/25/18 23:08 [From Migranal] gabapentin [From Neurontin] Allergy Itching/Swe Verified 08/25/18 23:08 lling latex Allergy Anaphylaxis Verified 08/25/18 23:08 naproxen [From Naprosyn] Allergy Anaphylaxis Verified 08/25/18 23:08 Penicillins Allergy Anaphylaxis Verified 08/25/18 23:08 quetiapine fumarate Allergy Itching, Verified 08/25/18 23:08 [From Seroquel] leg cramps rofecoxib [From Vioxx] Allergy Itching, Verified 08/25/18 23:08 leg cramps terfenadine [From Seldane] Allergy Rash/Hives Verified 08/25/18 23:08 tramadol Allergy Nausea & Verified 08/25/18 23:08 Vomiting/LEG CRAMPS/HEART FLUTTERS calcium carbonate [From DHEA] AdvReac Chest Pain Verified 08/25/18 23:08 calcium phosphate,dibasic AdvReac Chest Pain Verified 08/25/18 23:08 [From DHEA] clindamycin AdvReac muscle Verified 08/25/18 23:08 cramps clonidine AdvReac fast Verified 08/25/18 23:08 heartbeat, migraine dextromethorphan HBr AdvReac face/neck Verified 08/25/18 23:08 [From NyQuil] flushing diazepam [From Valium] AdvReac Nausea & Verified 08/25/18 23:08 Vomiting divalproex sodium AdvReac Nausea & Verified 08/25/18 23:08 [From Depakote] Vomiting doxylamine [From NyQuil] AdvReac face "beet Verified 08/25/18 23:08 red", elevated temp. ibuprofen [From Motrin] AdvReac abdominal Verified 08/25/18 23:08 & muscle cramps indomethacin [From Indocin] AdvReac Abdominal Verified 08/25/18 23:08 Pain,N/V ketorolac tromethamine AdvReac "built up Verified 08/25/18 23:08 [From Toradol] in system", had to be given something to reverse lorazepam [From Ativan] AdvReac Nausea & Verified 08/25/18 23:08 Vomiting metoclopramide HCl AdvReac muscle Verified 08/25/18 23:08 [From Reglan] cramps prasterone (DHEA) [From DHEA] AdvReac Chest Pain Verified 08/25/18 23:08 prochlorperazine AdvReac leg Verified 08/25/18 23:08 [From Compazine] cramping propranolol AdvReac Chest Pain Verified 08/25/18 23:08 pseudoephedrine HCl AdvReac face "beet Verified 08/25/18 23:08 [From NyQuil] red", elevated temp. quetiapine [From Seroquel] AdvReac leg Verified 08/25/18 23:08 cramping sumatriptan [From Imitrex] AdvReac migrane Verified 08/25/18 23:08 sumatriptan succinate AdvReac migrane Verified 08/25/18 23:08 [From Imitrex] topiramate [From Topamax] AdvReac "built up Verified 08/25/18 23:08 in system", had to be given something to reverse trazodone AdvReac "built up Verified 08/25/18 23:08 in system", had to be given something to reverse zolpidem tartrate AdvReac "Became Verified 08/25/18 23:08 [From Ambien] violent with no memory" zonisamide [From Zonegran] AdvReac inability Verified 08/25/18 23:08 to eat artificial sweetener AdvReac SEVERE Uncoded 08/25/18 23:08 MIGRAINE HEADACHE Review of Systems ROS Other: All systems not noted in ROS Statement are negative. <Alli Knowles - Last Filed: 08/25/18 22:58> ROS Other: All systems not noted in ROS Statement are negative. <Wandy Wooten - Last Filed: 08/26/18 07:53> ROS Statement: Those systems with pertinent positive or pertinent negative responses have been documented in the HPI. Past Medical History Past Medical History: Hyperlipidemia, Seizure Disorder Additional Past Medical History / Comment(s): Migraines, viral meningitis x3 as a child, 1995, 2000, chronic back pain, nerve blocks 08/2016 and 12/2016. Last seizure 07/22/2017, "ABSENTEE SEIZURES. HX TACHYCARDIA, GB/CIPD History of Any Multi-Drug Resistant Organisms: None Reported Past Surgical History: Appendectomy, Section, Cholecystectomy, Hernia Repair, Hysterectomy, Orthopedic Surgery, Tonsillectomy, Tubal Ligation Additional Past Surgical History / Comment(s): Hiatal Hernia, umbilical hernia repair, left rotator cuff repair, bilateral knee scopes, pain clinic procedures- occipital nerve block on 01/05/2017. abd exploratory sx(endometreosis), 3 abd scopes 1981, 1989, 1991), lumbar puncture. EGD. nerve biopsy, Past Anesthesia/Blood Transfusion Reactions: No Reported Reaction Additional Past Anesthesia/Blood Transfusion Reaction / Comment(s): Claustrophobic Past Psychological History: Anxiety, Bipolar, Panic Disorder Smoking Status: Current every day smoker Past Alcohol Use History: None Reported Past Drug Use History: None Reported - Past Family History Mother Family Medical History: Cancer, Dementia, Diabetes Mellitus, GERD/Reflux, Hyperlipidemia, Hypertension, Thyroid Disorder Additional Family Medical History / Comment(s): Quad CABG, cardiac stents, toes ampuated. Father History Unknown: Yes Family Medical History: No Reported History <Alli Knowles - Last Filed: 08/25/18 22:58> General Exam Limitations: no limitations General appearance: alert, in no apparent distress Head exam: Present: atraumatic, normocephalic, normal inspection Eye exam: Present: normal appearance ENT exam: Present: normal exam Respiratory exam: Present: normal lung sounds bilaterally Cardiovascular Exam: Present: regular rate, normal rhythm, normal heart sounds Back exam: Present: normal inspection Neurological exam: Present: alert, oriented X3 Psychiatric exam: Present: normal affect, normal mood Skin exam: Present: warm, intact, normal color <Alli Knowles - Last Filed: 08/25/18 22:58> Course Vital Signs 08/25/18 08/25/18 21:19 23:14 Temperature 98.1 F 98.0 F Pulse Rate 93 88 Respiratory 20 18 Rate Blood Pressure 128/87 121/78 O2 Sat by Pulse 97 98 Oximetry Medical Decision Making <Alli Knowles - Last Filed: 08/25/18 22:58> <Wandy Wooten - Last Filed: 08/26/18 07:53> - Medical Decision Making Patient is a 48-year-old female presenting to emergency Department with a left- sided migraine. Patient was given Benadryl, Dilaudid and Zofran. Patient reports this is her typical medication to alleviate acute flares of migraines. Patient advised to follow-up with primary care and neurology. Patient advised to return to emergency department if symptoms worsen. Case discussed with physician. (Alli Knowles) I was available for consultation in the emergency department. The history and physical exam were done by the midlevel provider. I was consulted for this patient's care. I reviewed the case with the midlevel provider and based on their presentation of the patient, I agree with the assessment, medical decision making and plan of care as documented. Chart was dictated using Tailored dictation software. Attempts were made to correct any dictation errors however some typographical errors may persist. (Wandy Wooten) Disposition Is patient prescribed a controlled substance at d/c from ED?: No Time of Disposition: 23:04 <Alli Knowles - Last Filed: 08/25/18 22:58> <Wandy Wooten - Last Filed: 08/26/18 07:53> Clinical Impression: Headache Disposition: HOME SELF-CARE Condition: Stable Instructions (If sedation given, give patient instructions): Acute Headache (ED) Additional Instructions: Please follow up with primary care and neurology. Please return to emergency department if symptoms worsen. Referrals: José Reece MD [Primary Care Provider] - 1-2 days
[2018-08-25 23:14] VITALS: BP 121/78; PULSE 88; RESP 18; TEMP 98
== END 2018-08-25 23:14 | disposition home or self-care (01) ==
LOC: EC 20:18
DX: G43.909 Migraine, unspecified, not intractable, without status migrainosus (principal); E78.5 Hyperlipidemia, unspecified; G40.909 Epilepsy, unspecified, not intractable, without status epilepticus; F17.200 Nicotine dependence, unspecified, uncomplicated; Z79.899 Other long term (current) drug therapy; Z88.0 Allergy status to penicillin; Z88.6 Allergy status to analgesic agent; Z88.5 Allergy status to narcotic agent; Z88.8 Allergy status to other drugs, medicaments and biological substances; Z91.040 Latex allergy status; Z91.018 Allergy to other foods
CPT/HCPCS: 99283; 96374; 96375 ×2; J1200; J2405; J1170

== ENCOUNTER 2018-10-01 03:16 | Emergency (ER) | payer OTHER ==
[2018-10-01 03:24] VITALS: TEMP 97.8
[2018-10-01] MEDS ORDERED: SODIUM CHLORIDE 0.9% 1,000 ML IV STA (03:28)
--- NOTE | 2018-10-01 03:28 | ED ---
Headache HPI - General Chief Complaint: Headache Stated Complaint: Migraine Time Seen by Provider: 10/01/18 03:28 - History of Present Illness Initial Comments: Sara is a 48-year-old female with extensive past medical history most significant for chronic migraines who presents to the emergency department today for evaluation of a migraine been going on for 3 days duration. Patient has multiple medication ALLERGIES but has taken Tylenol, [place] at home with no improvement in her headache over the past 3 days. Patient reports the headache began gradually, is similar to previous headaches, is not the worse headache of her life there is no associated visual changes, or focal neurologic deficits. Headache is not associated with fever. MD Complaint: "migraine" Onset/Timin -: days(s) Onset Description: gradual Location: diffuse Severity: severe Quality: aching, full Consistency: constant Improves With: nothing Worsens With: light, noise Associated Symptoms: photophobia Treatments Prior to Arrival: Acetaminophen, prescription analgesic, migraine medication - Related Data Home Medications Medication Instructions Recorded Confirmed Atorvastatin [Lipitor] 40 mg PO HS 04/02/17 08/25/18 Lacosamide [Vimpat] 100 mg PO BID 06/04/17 08/25/18 HYDROcodone/APAP 7.5-325MG [[place] 1 tab PO TID 07/06/17 08/25/18 7.5-325] Allergies Allergy/AdvReac Type Severity Reaction Status Date / Time dihydroergotamine Allergy Unknown Unknown Verified 08/25/18 23:08 [From Migranal] gabapentin [From Neurontin] Allergy Itching/Swe Verified 08/25/18 23:08 lling latex Allergy Anaphylaxis Verified 08/25/18 23:08 naproxen [From Naprosyn] Allergy Anaphylaxis Verified 08/25/18 23:08 Penicillins Allergy Anaphylaxis Verified 08/25/18 23:08 quetiapine fumarate Allergy Itching, Verified 08/25/18 23:08 [From Seroquel] leg cramps rofecoxib [From Vioxx] Allergy Itching, Verified 08/25/18 23:08 leg cramps terfenadine [From Seldane] Allergy Rash/Hives Verified 08/25/18 23:08 tramadol Allergy Nausea & Verified 08/25/18 23:08 Vomiting/LEG CRAMPS/HEART FLUTTERS calcium carbonate [From DHEA] AdvReac Chest Pain Verified 08/25/18 23:08 calcium phosphate,dibasic AdvReac Chest Pain Verified 08/25/18 23:08 [From DHEA] clindamycin AdvReac muscle Verified 08/25/18 23:08 cramps clonidine AdvReac fast Verified 08/25/18 23:08 heartbeat, migraine dextromethorphan HBr AdvReac face/neck Verified 08/25/18 23:08 [From NyQuil] flushing diazepam [From Valium] AdvReac Nausea & Verified 08/25/18 23:08 Vomiting divalproex sodium AdvReac Nausea & Verified 08/25/18 23:08 [From Depakote] Vomiting doxylamine [From NyQuil] AdvReac face "beet Verified 08/25/18 23:08 red", elevated temp. ibuprofen [From Motrin] AdvReac abdominal Verified 08/25/18 23:08 & muscle cramps indomethacin [From Indocin] AdvReac Abdominal Verified 08/25/18 23:08 Pain,N/V ketorolac tromethamine AdvReac "built up Verified 08/25/18 23:08 [From Toradol] in system", had to be given something to reverse lorazepam [From Ativan] AdvReac Nausea & Verified 08/25/18 23:08 Vomiting metoclopramide HCl AdvReac muscle Verified 08/25/18 23:08 [From Reglan] cramps prasterone (DHEA) [From DHEA] AdvReac Chest Pain Verified 08/25/18 23:08 prochlorperazine AdvReac leg Verified 08/25/18 23:08 [From Compazine] cramping propranolol AdvReac Chest Pain Verified 08/25/18 23:08 pseudoephedrine HCl AdvReac face "beet Verified 08/25/18 23:08 [From NyQuil] red", elevated temp. quetiapine [From Seroquel] AdvReac leg Verified 08/25/18 23:08 cramping sumatriptan [From Imitrex] AdvReac migrane Verified 08/25/18 23:08 sumatriptan succinate AdvReac migrane Verified 08/25/18 23:08 [From Imitrex] topiramate [From Topamax] AdvReac "built up Verified 08/25/18 23:08 in system", had to be given something to reverse trazodone AdvReac "built up Verified 08/25/18 23:08 in system", had to be given something to reverse zolpidem tartrate AdvReac "Became Verified 08/25/18 23:08 [From Ambien] violent with no memory" zonisamide [From Zonegran] AdvReac inability Verified 08/25/18 23:08 to eat artificial sweetener AdvReac SEVERE Uncoded 08/25/18 23:08 MIGRAINE HEADACHE Review of Systems ROS Statement: Those systems with pertinent positive or pertinent negative responses have been documented in the HPI. ROS Other: All systems not noted in ROS Statement are negative. Past Medical History Past Medical History: Hyperlipidemia, Seizure Disorder Additional Past Medical History / Comment(s): Migraines, viral meningitis x3 as a child, 1995, 2000, chronic back pain, nerve blocks 08/2016 and 12/2016. Last seizure 07/22/2017, "ABSENTEE SEIZURES. HX TACHYCARDIA, GB/CIPD History of Any Multi-Drug Resistant Organisms: None Reported Past Surgical History: Appendectomy, Section, Cholecystectomy, Hernia Repair, Hysterectomy, Orthopedic Surgery, Tonsillectomy, Tubal Ligation Additional Past Surgical History / Comment(s): Hiatal Hernia, umbilical hernia repair, left rotator cuff repair, bilateral knee scopes, pain clinic procedures- occipital nerve block on 01/05/2017. abd exploratory sx(endometreosis), 3 abd scopes 1981, 1989, 1991), lumbar puncture. EGD. nerve biopsy, Past Anesthesia/Blood Transfusion Reactions: No Reported Reaction Additional Past Anesthesia/Blood Transfusion Reaction / Comment(s): Claustrophobic Past Psychological History: Anxiety, Bipolar, Panic Disorder Smoking Status: Current every day smoker Past Alcohol Use History: None Reported Past Drug Use History: None Reported - Past Family History Mother Family Medical History: Cancer, Dementia, Diabetes Mellitus, GERD/Reflux, Hyperlipidemia, Hypertension, Thyroid Disorder Additional Family Medical History / Comment(s): Quad CABG, cardiac stents, toes ampuated. Father History Unknown: Yes Family Medical History: No Reported History General Exam - General Exam Comments Initial Comments: Physical Exam GENERAL: Chronically ill-appearing, patient appears much older than stated age Sitting comfortably on the gurney wearing sunglasses HENT: Normocephalic, Atraumatic. EYES: PERRL, EOMI PULMONARY: Unlabored respirations. No audible rales rhonchi or wheezing was noted. CARDIOVASCULAR: There is a regular rate and rhythm without any murmurs gallops or rubs. ABDOMEN: Soft and nontender with normal bowel sounds. SKIN: Skin is clear with no lesions or rashes and otherwise unremarkable. : Deferred NEUROLOGIC: Patient is alert and oriented x3. Moving all extremities spontaneously MUSCULOSKELETAL: Normal extremities with adequate strength and full range of motion. No lower extremity swelling or edema. No calf tenderness. PSYCHIATRIC: Normal psychiatric evaluation Course Vital Signs 10/01/18 03:21 Temperature 97.8 F Pulse Rate 99 Respiratory 17 Rate Blood Pressure 117/79 O2 Sat by Pulse 97 Oximetry Medical Decision Making - Medical Decision Making The patient was seen and evaluated, history is obtained from the patient and review of medical record Patient with a migraine typical to previous, patient with multiple drug ALLERGIES and treated with Zofran, Benadryl and Dilaudid which is what well for her in the past Patient reported mild improvement in her symptoms with first dose of medications. A repeat dose will be ordered. She reported resolution of her headache after repeat doses of medications. Patient requesting discharge home at this time. Will follow up with her neurologist for chronic headaches Disposition Clinical Impression: Headache Disposition: HOME SELF-CARE Condition: Stable Instructions (If sedation given, give patient instructions): Acute Headache (ED) Is patient prescribed a controlled substance at d/c from ED?: No Referrals: José Reece MD [Primary Care Provider] - 1-2 days
[2018-10-01] MEDS ORDERED: HYDROmorphone 1 MG/ML 1 ML SYRINGE IM STA (03:46)
[2018-10-01] MEDS ORDERED: diphenhydrAMINE 50 MG/ML 1 ML VIAL IVP STA ×2 (03:46→05:40)
[2018-10-01] MEDS ORDERED: ONDANSETRON 4 MG/2 ML VIAL IVP STA (03:46)
[2018-10-01] MEDS ORDERED: HYDROmorphone 1 MG/ML 1 ML SYRINGE IVP STA (05:40)
[2018-10-01 07:10] VITALS: BP 131/87; PULSE 86; RESP 18
== END 2018-10-01 06:40 | disposition home or self-care (01) ==
LOC: EC 03:16
DX: G43.909 Migraine, unspecified, not intractable, without status migrainosus (principal); E78.5 Hyperlipidemia, unspecified; G40.909 Epilepsy, unspecified, not intractable, without status epilepticus; F17.200 Nicotine dependence, unspecified, uncomplicated; Z79.899 Other long term (current) drug therapy; Z88.8 Allergy status to other drugs, medicaments and biological substances; Z91.040 Latex allergy status; Z88.0 Allergy status to penicillin; Z88.5 Allergy status to narcotic agent; Z88.1 Allergy status to other antibiotic agents; Z88.2 Allergy status to sulfonamides; Z88.6 Allergy status to analgesic agent; Z91.02 Food additives allergy status
CPT/HCPCS: 99283; 96374; 96375 ×2; 96376; 96361; 96372; J1200; J2405; J1170

== ENCOUNTER 2018-10-22 02:34 | Emergency (ER) | payer OTHER ==
[2018-10-22] MEDS ORDERED: ONDANSETRON 4 MG/2 ML VIAL IVP STA (03:31)
[2018-10-22] MEDS ORDERED: methylPREDNISolone SOD SUCCI 125 MG/2 ML VIAL IV STA (03:31)
[2018-10-22] MEDS ORDERED: diphenhydrAMINE 50 MG/ML 1 ML VIAL IVP STA (03:31)
--- NOTE | 2018-10-22 03:35 | ED ---
Headache HPI - General Chief Complaint: Headache Stated Complaint: Migraine Time Seen by Provider: 10/22/18 02:54 Mode of arrival: ambulatory Limitations: no limitations - History of Present Illness MD Complaint: headache Onset/Timin -: days(s) Onset Description: sudden Location: right, temporal, retro-orbital Severity: severe Quality: sharp, similar to previous headaches Consistency: constant Improves With: nothing Worsens With: light, noise Context: occurred at rest Associated Symptoms: photophobia, sensitivity to sound Treatments Prior to Arrival: none - Related Data Home Medications Medication Instructions Recorded Confirmed Atorvastatin [Lipitor] 40 mg PO HS 04/02/17 08/25/18 Lacosamide [Vimpat] 100 mg PO BID 06/04/17 08/25/18 HYDROcodone/APAP 7.5-325MG [[place] 1 tab PO TID 07/06/17 08/25/18 7.5-325] Allergies Allergy/AdvReac Type Severity Reaction Status Date / Time dihydroergotamine Allergy Unknown Unknown Verified 08/25/18 23:08 [From Migranal] gabapentin [From Neurontin] Allergy Itching/Swe Verified 08/25/18 23:08 lling latex Allergy Anaphylaxis Verified 08/25/18 23:08 naproxen [From Naprosyn] Allergy Anaphylaxis Verified 08/25/18 23:08 Penicillins Allergy Anaphylaxis Verified 08/25/18 23:08 quetiapine fumarate Allergy Itching, Verified 08/25/18 23:08 [From Seroquel] leg cramps rofecoxib [From Vioxx] Allergy Itching, Verified 08/25/18 23:08 leg cramps terfenadine [From Seldane] Allergy Rash/Hives Verified 08/25/18 23:08 tramadol Allergy Nausea & Verified 08/25/18 23:08 Vomiting/LEG CRAMPS/HEART FLUTTERS calcium carbonate [From DHEA] AdvReac Chest Pain Verified 08/25/18 23:08 calcium phosphate,dibasic AdvReac Chest Pain Verified 08/25/18 23:08 [From DHEA] clindamycin AdvReac muscle Verified 08/25/18 23:08 cramps clonidine AdvReac fast Verified 08/25/18 23:08 heartbeat, migraine dextromethorphan HBr AdvReac face/neck Verified 08/25/18 23:08 [From NyQuil] flushing diazepam [From Valium] AdvReac Nausea & Verified 08/25/18 23:08 Vomiting divalproex sodium AdvReac Nausea & Verified 08/25/18 23:08 [From Depakote] Vomiting doxylamine [From NyQuil] AdvReac face "beet Verified 08/25/18 23:08 red", elevated temp. ibuprofen [From Motrin] AdvReac abdominal Verified 08/25/18 23:08 & muscle cramps indomethacin [From Indocin] AdvReac Abdominal Verified 08/25/18 23:08 Pain,N/V ketorolac tromethamine AdvReac "built up Verified 08/25/18 23:08 [From Toradol] in system", had to be given something to reverse lorazepam [From Ativan] AdvReac Nausea & Verified 08/25/18 23:08 Vomiting metoclopramide HCl AdvReac muscle Verified 08/25/18 23:08 [From Reglan] cramps prasterone (DHEA) [From DHEA] AdvReac Chest Pain Verified 08/25/18 23:08 prochlorperazine AdvReac leg Verified 08/25/18 23:08 [From Compazine] cramping propranolol AdvReac Chest Pain Verified 08/25/18 23:08 pseudoephedrine HCl AdvReac face "beet Verified 08/25/18 23:08 [From NyQuil] red", elevated temp. quetiapine [From Seroquel] AdvReac leg Verified 08/25/18 23:08 cramping sumatriptan [From Imitrex] AdvReac migrane Verified 08/25/18 23:08 sumatriptan succinate AdvReac migrane Verified 08/25/18 23:08 [From Imitrex] topiramate [From Topamax] AdvReac "built up Verified 08/25/18 23:08 in system", had to be given something to reverse trazodone AdvReac "built up Verified 08/25/18 23:08 in system", had to be given something to reverse zolpidem tartrate AdvReac "Became Verified 08/25/18 23:08 [From Ambien] violent with no memory" zonisamide [From Zonegran] AdvReac inability Verified 08/25/18 23:08 to eat artificial sweetener AdvReac SEVERE Uncoded 08/25/18 23:08 MIGRAINE HEADACHE Review of Systems ROS Statement: Those systems with pertinent positive or pertinent negative responses have been documented in the HPI. ROS Other: All systems not noted in ROS Statement are negative. Constitutional: Denies: fever, chills, weakness Eyes: Denies: vision change Respiratory: Denies: cough Cardiovascular: Denies: chest pain, palpitations Gastrointestinal: Reports: nausea Musculoskeletal: Denies: back pain Skin: Denies: rash Neurological: Reports: headache. Denies: weakness, numbness, paresthesias Past Medical History Past Medical History: Hyperlipidemia, Seizure Disorder Additional Past Medical History / Comment(s): Migraines, viral meningitis x3 as a child, 1995, 2000, chronic back pain, nerve blocks 08/2016 and 12/2016. Last seizure 07/22/2017, "ABSENTEE SEIZURES. HX TACHYCARDIA, GB/CIPD History of Any Multi-Drug Resistant Organisms: None Reported Past Surgical History: Appendectomy, Section, Cholecystectomy, Hernia Repair, Hysterectomy, Orthopedic Surgery, Tonsillectomy, Tubal Ligation Additional Past Surgical History / Comment(s): Hiatal Hernia, umbilical hernia repair, left rotator cuff repair, bilateral knee scopes, pain clinic procedures- occipital nerve block on 01/05/2017. abd exploratory sx(endometreosis), 3 abd scopes 1981, 1989, 1991), lumbar puncture. EGD. nerve biopsy, Past Anesthesia/Blood Transfusion Reactions: No Reported Reaction Additional Past Anesthesia/Blood Transfusion Reaction / Comment(s): Claustrophobic Past Psychological History: Anxiety, Bipolar, Panic Disorder Smoking Status: Current every day smoker Past Alcohol Use History: None Reported Past Drug Use History: None Reported - Past Family History Mother Family Medical History: Cancer, Dementia, Diabetes Mellitus, GERD/Reflux, Hyperlipidemia, Hypertension, Thyroid Disorder Additional Family Medical History / Comment(s): Quad CABG, cardiac stents, toes ampuated. Father History Unknown: Yes Family Medical History: No Reported History General Exam Limitations: no limitations General appearance: alert, in no apparent distress Head exam: Present: atraumatic, normocephalic Eye exam: Present: normal appearance, EOMI, other (Photophobia). Absent: scleral icterus, conjunctival injection ENT exam: Present: normal oropharynx Neurological exam: Present: alert, oriented X3, CN II-XII intact. Absent: motor sensory deficit Skin exam: Present: warm, dry, intact, normal color. Absent: rash Course Vital Signs 10/22/18 02:39 Temperature 97.4 F L Pulse Rate 80 Respiratory 16 Rate Blood Pressure 138/94 O2 Sat by Pulse 100 Oximetry Disposition Clinical Impression: Headache Disposition: HOME SELF-CARE Condition: Fair Instructions (If sedation given, give patient instructions): Acute Headache (ED) Is patient prescribed a controlled substance at d/c from ED?: No Referrals: José Reece MD [Primary Care Provider] - 1-2 days
[2018-10-22] MEDS ORDERED: ONDANSETRON ODT 4 MG TAB PO STA (04:16)
[2018-10-22] MEDS ORDERED: diphenhydrAMINE 50 MG/ML 1 ML VIAL IM STA ×2 (04:17→05:22)
[2018-10-22] MEDS: methylPREDNISolone SOD SUCCI 125 MG/2 ML VIAL IM ONE ×2 (04:28→04:31)
[2018-10-22] MEDS ORDERED: HYDROmorphone 1 MG/ML 1 ML SYRINGE IM STA (05:22)
[2018-10-22] MEDS ORDERED: ONDANSETRON 4 MG/2 ML VIAL IM STA (05:22)
[2018-10-22 07:09] VITALS: BP 152/114; PULSE 87; RESP 14; TEMP 98
== END 2018-10-22 07:00 | disposition home or self-care (01) ==
LOC: EC 02:34
DX: R51 Headache (principal); G40.909 Epilepsy, unspecified, not intractable, without status epilepticus; E78.5 Hyperlipidemia, unspecified; F17.200 Nicotine dependence, unspecified, uncomplicated; Z79.899 Other long term (current) drug therapy; Z88.0 Allergy status to penicillin; Z88.1 Allergy status to other antibiotic agents; Z88.5 Allergy status to narcotic agent; Z88.6 Allergy status to analgesic agent; Z88.8 Allergy status to other drugs, medicaments and biological substances; Z91.040 Latex allergy status; Z91.02 Food additives allergy status
CPT/HCPCS: 96372; 99283

== ENCOUNTER 2018-10-26 22:02 | Emergency (ER) | payer OTHER ==
[2018-10-26] MEDS ORDERED: HYDROmorphone 1 MG/ML 1 ML SYRINGE IVP STA (22:47)
[2018-10-26] MEDS ORDERED: diphenhydrAMINE 50 MG/ML 1 ML VIAL IVP STA (22:47)
[2018-10-26] MEDS ORDERED: ONDANSETRON 4 MG/2 ML VIAL IVP STA (22:48)
[2018-10-27] MEDS ORDERED: HYDROmorphone 1 MG/ML 1 ML SYRINGE IVP STA (00:53)
[2018-10-27] MEDS ORDERED: ONDANSETRON 4 MG/2 ML VIAL IVP STA (00:54)
--- NOTE | 2018-10-27 02:25 | ED ---
Headache HPI - General Chief Complaint: Headache Stated Complaint: Headache Time Seen by Provider: 10/26/18 22:24 Source: patient Mode of arrival: ambulatory Limitations: no limitations - History of Present Illness Initial Comments: The patient is a 68-year-old female with past medical history of migraines who presents to the emergency room with reported headache. She reports that it started yesterday. Consistent with her previous history of migraines. States that there are no new or worsening symptoms. She admits to photophobia however denies phonophobia. No neck pain or stiffness. No fevers or chills. Reports that she has had meningitis 3 times and this is not similar. Denies any blunt head trauma. She does have 2 neurologist who prescribed medications for her migraines. States that she has taken [place], Flexeril, Zofran at home without improvement in her symptoms. She states that when her symptoms become out of control that she needs to come into the emergency department for pain management. Denies any unilateral numbness or weakness. No back pain or flank pain. There are no alleviating, precipitating or modifying factors - Related Data Home Medications Medication Instructions Recorded Confirmed Atorvastatin [Lipitor] 40 mg PO HS 04/02/17 10/27/18 Lacosamide [Vimpat] 100 mg PO BID 06/04/17 10/27/18 HYDROcodone/APAP 7.5-325MG [[place] 1 tab PO TID 07/06/17 10/27/18 7.5-325] Cetirizine HCl [Zyrtec] 10 mg PO DAILY 10/26/18 10/27/18 amLODIPine [Norvasc] 5 mg PO DAILY 10/26/18 10/27/18 Nortriptyline [Pamelor] 25 mg PO HS 10/27/18 10/27/18 Allergies Allergy/AdvReac Type Severity Reaction Status Date / Time dihydroergotamine Allergy Unknown Unknown Verified 10/27/18 22:29 [From Migranal] gabapentin [From Neurontin] Allergy Itching/Swe Verified 10/27/18 22:29 lling latex Allergy Anaphylaxis Verified 10/27/18 22:29 naproxen [From Naprosyn] Allergy Anaphylaxis Verified 10/27/18 22:29 Penicillins Allergy Anaphylaxis Verified 10/27/18 22:29 quetiapine fumarate Allergy Itching, Verified 10/27/18 22:29 [From Seroquel] leg cramps rofecoxib [From Vioxx] Allergy Itching, Verified 10/27/18 22:29 leg cramps terfenadine [From Seldane] Allergy Rash/Hives Verified 10/27/18 22:29 tramadol Allergy Nausea & Verified 10/27/18 22:29 Vomiting/LEG CRAMPS/HEART FLUTTERS calcium carbonate [From DHEA] AdvReac Chest Pain Verified 10/27/18 22:29 calcium phosphate,dibasic AdvReac Chest Pain Verified 10/27/18 22:29 [From DHEA] clindamycin AdvReac muscle Verified 10/27/18 22:29 cramps clonidine AdvReac fast Verified 10/27/18 22:29 heartbeat, migraine dextromethorphan HBr AdvReac face/neck Verified 10/27/18 22:29 [From NyQuil] flushing diazepam [From Valium] AdvReac Nausea & Verified 10/27/18 22:29 Vomiting divalproex sodium AdvReac Nausea & Verified 10/27/18 22:29 [From Depakote] Vomiting doxylamine [From NyQuil] AdvReac face "beet Verified 10/27/18 22:29 red", elevated temp. ibuprofen [From Motrin] AdvReac abdominal Verified 10/27/18 22:29 & muscle cramps indomethacin [From Indocin] AdvReac Abdominal Verified 10/27/18 22:29 Pain,N/V ketorolac tromethamine AdvReac "built up Verified 10/27/18 22:29 [From Toradol] in system", had to be given something to reverse lorazepam [From Ativan] AdvReac Nausea & Verified 10/27/18 22:29 Vomiting metoclopramide HCl AdvReac muscle Verified 10/27/18 22:29 [From Reglan] cramps prasterone (DHEA) [From DHEA] AdvReac Chest Pain Verified 10/27/18 22:29 prochlorperazine AdvReac leg Verified 10/27/18 22:29 [From Compazine] cramping propranolol AdvReac Chest Pain Verified 10/27/18 22:29 pseudoephedrine HCl AdvReac face "beet Verified 10/27/18 22:29 [From NyQuil] red", elevated temp. quetiapine [From Seroquel] AdvReac leg Verified 10/27/18 22:29 cramping sumatriptan [From Imitrex] AdvReac migrane Verified 10/27/18 22:29 sumatriptan succinate AdvReac migrane Verified 10/27/18 22:29 [From Imitrex] topiramate [From Topamax] AdvReac "built up Verified 10/27/18 22:29 in system", had to be given something to reverse trazodone AdvReac "built up Verified 10/27/18 22:29 in system", had to be given something to reverse zolpidem tartrate AdvReac "Became Verified 10/27/18 22:29 [From Ambien] violent with no memory" zonisamide [From Zonegran] AdvReac inability Verified 10/27/18 22:29 to eat artificial sweetener AdvReac SEVERE Uncoded 10/27/18 21:54 MIGRAINE HEADACHE Review of Systems ROS Statement: Those systems with pertinent positive or pertinent negative responses have been documented in the HPI. ROS Other: All systems not noted in ROS Statement are negative. Past Medical History Past Medical History: Hyperlipidemia, Seizure Disorder Additional Past Medical History / Comment(s): Migraines, viral meningitis x3 as a child, 1995, 2000, chronic back pain, nerve blocks 08/2016 and 12/2016. Last seizure 07/22/2017, "ABSENTEE SEIZURES. HX TACHYCARDIA, GB/CIPD History of Any Multi-Drug Resistant Organisms: None Reported Past Surgical History: Appendectomy, Section, Cholecystectomy, Hernia Repair, Hysterectomy, Orthopedic Surgery, Tonsillectomy, Tubal Ligation Additional Past Surgical History / Comment(s): Hiatal Hernia, umbilical hernia repair, left rotator cuff repair, bilateral knee scopes, pain clinic procedures- occipital nerve block on 01/05/2017. abd exploratory sx(endometreosis), 3 abd scopes 1981, 1989, 1991), lumbar puncture. EGD. nerve biopsy, Past Anesthesia/Blood Transfusion Reactions: No Reported Reaction Additional Past Anesthesia/Blood Transfusion Reaction / Comment(s): Claustrophobic Past Psychological History: Anxiety, Bipolar, Panic Disorder Smoking Status: Current every day smoker Past Alcohol Use History: None Reported Past Drug Use History: None Reported - Past Family History Mother Family Medical History: Cancer, Dementia, Diabetes Mellitus, GERD/Reflux, Hyperlipidemia, Hypertension, Thyroid Disorder Additional Family Medical History / Comment(s): Quad CABG, cardiac stents, toes ampuated. Father History Unknown: Yes Family Medical History: No Reported History General Exam Limitations: no limitations General appearance: alert, in no apparent distress Head exam: Present: atraumatic, normocephalic, normal inspection Eye exam: Present: normal appearance, PERRL, EOMI. Absent: scleral icterus, conjunctival injection, periorbital swelling ENT exam: Present: normal exam, mucous membranes moist Neck exam: Present: normal inspection, other (Negative Kernig, negative Brudzinski). Absent: tenderness, meningismus, lymphadenopathy Respiratory exam: Present: normal lung sounds bilaterally. Absent: respiratory distress, wheezes, rales, rhonchi, stridor Cardiovascular Exam: Present: regular rate, normal rhythm, normal heart sounds. Absent: systolic murmur, diastolic murmur, rubs, gallop, clicks GI/Abdominal exam: Present: soft, normal bowel sounds. Absent: distended, tenderness, guarding, rebound, rigid Extremities exam: Present: normal inspection, full ROM, normal capillary refill. Absent: tenderness, pedal edema, joint swelling, calf tenderness Back exam: Present: normal inspection Neurological exam: Present: alert, oriented X3, CN II-XII intact Psychiatric exam: Present: normal affect, normal mood Skin exam: Present: warm, dry, intact, normal color. Absent: rash Course Vital Signs 10/26/18 10/27/18 22:13 02:39 Temperature 98.5 F 98 F Pulse Rate 125 H 78 Respiratory 20 18 Rate Blood Pressure 154/113 134/74 O2 Sat by Pulse 98 98 Oximetry Medical Decision Making - Medical Decision Making On arrival the patient is placed in room 22. She is hooked up to continuous pulse ox and cardiac monitoring. I did recommend laboratory studies and imaging of the patient's brain. Patient does report that these symptoms are consistent with her previous history of migraines. She is refusing any laboratory studies or imaging at this time. She is only requesting pain medication at this time. The patient is given 4mg of Zofran, 25 mg of Benadryl and 1 mg of Dilaudid. The patient is reevaluated and continues to have symptoms. She states that occasionally she will require a second dose of medications. I did provide the patient with an additional 4 mg of Zofran and 1 mg of Dilaudid. She is reevaluated and states that she has had improvement in her symptoms however they're not fully resolved. I did recommend admission to the hospital for neurology evaluation. The patient refused. She is aware of the risks of leaving which include permanent disability and even . She is of sound mind and capable of making her own decisions. The patient will be discharged home at this time. She is to call her neurologist tomorrow and make an appointment. The patient understood this. If she has any new or worsening symptoms she needs to return to the emergency room. The patient was in agreement with the treatment plan and she was discharged home in stable condition - Differential Diagnosis acute migraine cephalgia, acute n/v Disposition Clinical Impression: Migraine Disposition: HOME SELF-CARE Condition: Stable Instructions (If sedation given, give patient instructions): Acute Headache (ED) Additional Instructions: Please follow-up with your primary care doctor in 1-2 days. Please call your neurologist tomorrow for an appointment. Return to the ED for any new or worsening symptoms Is patient prescribed a controlled substance at d/c from ED?: No Referrals: José Reece MD [Primary Care Provider] - 1-2 days Time of Disposition: 02:25
[2018-10-27 02:41] VITALS: BP 134/74; PULSE 78; RESP 18; TEMP 98
== END 2018-10-27 02:41 | disposition home or self-care (01) ==
LOC: EC 22:02
DX: G43.909 Migraine, unspecified, not intractable, without status migrainosus (principal); E78.5 Hyperlipidemia, unspecified; G40.909 Epilepsy, unspecified, not intractable, without status epilepticus; G89.29 Other chronic pain; F31.9 Bipolar disorder, unspecified; F41.9 Anxiety disorder, unspecified; F17.200 Nicotine dependence, unspecified, uncomplicated; Z88.0 Allergy status to penicillin; Z88.1 Allergy status to other antibiotic agents; Z88.2 Allergy status to sulfonamides; Z88.5 Allergy status to narcotic agent; Z88.6 Allergy status to analgesic agent; Z88.8 Allergy status to other drugs, medicaments and biological substances; Z91.02 Food additives allergy status; Z91.040 Latex allergy status; Z79.891 Long term (current) use of opiate analgesic; Z79.899 Other long term (current) drug therapy; Z86.61 Personal history of infections of the central nervous system; Z53.20 Procedure and treatment not carried out because of patient's decision for unspecified reasons
CPT/HCPCS: 99283; 96374; 96375 ×2; 96376 ×2; J1200; J2405 ×2; J1170 ×2

== ENCOUNTER 2018-10-27 21:35 | Emergency (ER) | payer OTHER ==
[2018-10-27 21:54] VITALS: RESP 18; TEMP 98.2
[2018-10-27] MEDS ORDERED: ONDANSETRON ODT 4 MG TAB PO STA (22:10)
[2018-10-27] MEDS ORDERED: HYDROmorphone 1 MG/ML 1 ML SYRINGE IM STA (22:10)
--- NOTE | 2018-10-27 22:24 | ED ---
General Adult HPI - General Chief complaint: Headache Stated complaint: Migraine Time Seen by Provider: 10/27/18 21:56 Source: patient, RN notes reviewed Mode of arrival: ambulatory Limitations: no limitations - History of Present Illness Initial comments: Sara is a 48 her old female well-known to this emergency department who presents for chronic migraines. States this migraine has particularly been ongoing since 2 days ago. States that she was seen in the ER previously yesterday and it did help with her pain. However she tried to call her neurologist when the pain returned and they stated they could not get her in until her appointment so she needed pain medication she needed to go to the emergency department. States his pain is exactly consistent with previous migraines. States she has light sensitivity and nausea. States the pain is across her whole head. Denies any difficulty walking. States she just needs something to break the pain in the nausea. Denies vomiting.Patient has no other complaints at this time including shortness of breath, chest pain, abdominal pain, nausea or vomiting, headache, or visual changes. - Related Data Home Medications Medication Instructions Recorded Confirmed Atorvastatin [Lipitor] 40 mg PO HS 04/02/17 10/26/18 Lacosamide [Vimpat] 100 mg PO BID 06/04/17 10/26/18 HYDROcodone/APAP 7.5-325MG [[place] 1 tab PO TID 07/06/17 10/26/18 7.5-325] Cetirizine HCl [Zyrtec] 10 mg PO DAILY 10/26/18 10/26/18 amLODIPine [Norvasc] 5 mg PO DAILY 10/26/18 10/26/18 Nortriptyline [Pamelor] 25 mg PO HS 10/27/18 10/27/18 Allergies Allergy/AdvReac Type Severity Reaction Status Date / Time dihydroergotamine Allergy Unknown Unknown Verified 10/27/18 22:29 [From Migranal] gabapentin [From Neurontin] Allergy Itching/Swe Verified 10/27/18 22:29 lling latex Allergy Anaphylaxis Verified 10/27/18 22:29 naproxen [From Naprosyn] Allergy Anaphylaxis Verified 10/27/18 22:29 Penicillins Allergy Anaphylaxis Verified 10/27/18 22:29 quetiapine fumarate Allergy Itching, Verified 10/27/18 22:29 [From Seroquel] leg cramps rofecoxib [From Vioxx] Allergy Itching, Verified 10/27/18 22:29 leg cramps terfenadine [From Seldane] Allergy Rash/Hives Verified 10/27/18 22:29 tramadol Allergy Nausea & Verified 10/27/18 22:29 Vomiting/LEG CRAMPS/HEART FLUTTERS calcium carbonate [From DHEA] AdvReac Chest Pain Verified 10/27/18 22:29 calcium phosphate,dibasic AdvReac Chest Pain Verified 10/27/18 22:29 [From DHEA] clindamycin AdvReac muscle Verified 10/27/18 22:29 cramps clonidine AdvReac fast Verified 10/27/18 22:29 heartbeat, migraine dextromethorphan HBr AdvReac face/neck Verified 10/27/18 22:29 [From NyQuil] flushing diazepam [From Valium] AdvReac Nausea & Verified 10/27/18 22:29 Vomiting divalproex sodium AdvReac Nausea & Verified 10/27/18 22:29 [From Depakote] Vomiting doxylamine [From NyQuil] AdvReac face "beet Verified 10/27/18 22:29 red", elevated temp. ibuprofen [From Motrin] AdvReac abdominal Verified 10/27/18 22:29 & muscle cramps indomethacin [From Indocin] AdvReac Abdominal Verified 10/27/18 22:29 Pain,N/V ketorolac tromethamine AdvReac "built up Verified 10/27/18 22:29 [From Toradol] in system", had to be given something to reverse lorazepam [From Ativan] AdvReac Nausea & Verified 10/27/18 22:29 Vomiting metoclopramide HCl AdvReac muscle Verified 10/27/18 22:29 [From Reglan] cramps prasterone (DHEA) [From DHEA] AdvReac Chest Pain Verified 10/27/18 22:29 prochlorperazine AdvReac leg Verified 10/27/18 22:29 [From Compazine] cramping propranolol AdvReac Chest Pain Verified 10/27/18 22:29 pseudoephedrine HCl AdvReac face "beet Verified 10/27/18 22:29 [From NyQuil] red", elevated temp. quetiapine [From Seroquel] AdvReac leg Verified 10/27/18 22:29 cramping sumatriptan [From Imitrex] AdvReac migrane Verified 10/27/18 22:29 sumatriptan succinate AdvReac migrane Verified 10/27/18 22:29 [From Imitrex] topiramate [From Topamax] AdvReac "built up Verified 10/27/18 22:29 in system", had to be given something to reverse trazodone AdvReac "built up Verified 10/27/18 22:29 in system", had to be given something to reverse zolpidem tartrate AdvReac "Became Verified 10/27/18 22:29 [From Ambien] violent with no memory" zonisamide [From Zonegran] AdvReac inability Verified 10/27/18 22:29 to eat artificial sweetener AdvReac SEVERE Uncoded 10/27/18 21:54 MIGRAINE HEADACHE Review of Systems ROS Statement: Those systems with pertinent positive or pertinent negative responses have been documented in the HPI. ROS Other: All systems not noted in ROS Statement are negative. Past Medical History Past Medical History: Hyperlipidemia, Seizure Disorder Additional Past Medical History / Comment(s): Migraines, viral meningitis x3 as a child, 1995, 2000, chronic back pain, nerve blocks 08/2016 and 12/2016. Last seizure 07/22/2017, "ABSENTEE SEIZURES. HX TACHYCARDIA, GB/CIPD History of Any Multi-Drug Resistant Organisms: None Reported Past Surgical History: Appendectomy, Section, Cholecystectomy, Hernia Repair, Hysterectomy, Orthopedic Surgery, Tonsillectomy, Tubal Ligation Additional Past Surgical History / Comment(s): Hiatal Hernia, umbilical hernia repair, left rotator cuff repair, bilateral knee scopes, pain clinic procedures- occipital nerve block on 01/05/2017. abd exploratory sx(endometreosis), 3 abd scopes 1981, 1989, 1991), lumbar puncture. EGD. nerve biopsy, Past Anesthesia/Blood Transfusion Reactions: No Reported Reaction Additional Past Anesthesia/Blood Transfusion Reaction / Comment(s): Claustrophobic Past Psychological History: Anxiety, Bipolar, Panic Disorder Smoking Status: Current every day smoker Past Alcohol Use History: None Reported Past Drug Use History: None Reported - Past Family History Mother Family Medical History: Cancer, Dementia, Diabetes Mellitus, GERD/Reflux, Hyperlipidemia, Hypertension, Thyroid Disorder Additional Family Medical History / Comment(s): Quad CABG, cardiac stents, toes ampuated. Father History Unknown: Yes Family Medical History: No Reported History General Exam Limitations: no limitations General appearance: alert, in no apparent distress Head exam: Present: atraumatic, normocephalic, normal inspection Eye exam: Present: normal appearance, PERRL, EOMI. Absent: scleral icterus, conjunctival injection, periorbital swelling ENT exam: Present: normal exam, mucous membranes moist Neck exam: Present: normal inspection, full ROM. Absent: tenderness, meningismus, lymphadenopathy Respiratory exam: Present: normal lung sounds bilaterally. Absent: respiratory distress, wheezes, rales, rhonchi, stridor Cardiovascular Exam: Present: regular rate, normal rhythm, normal heart sounds. Absent: systolic murmur, diastolic murmur, rubs, gallop, clicks Neurological exam: Present: alert, oriented X3, CN II-XII intact Psychiatric exam: Present: normal affect, normal mood Course Vital Signs 10/27/18 21:51 Temperature 98.2 F Pulse Rate 109 H Respiratory 18 Rate Blood Pressure 125/84 O2 Sat by Pulse 98 Oximetry Medical Decision Making - Medical Decision Making Hope is a 48-year-old female well known for chronic migraines. This migraine is completely consistent with previous migraines. No neurologic deficits. Patient was given IM Dilaudid, evaluated feeling much better. Requesting Zofran for discharge. Patient will follow-up with her pain management doctor and return if she has any worsening symptoms. Disposition Clinical Impression: Migraine Disposition: HOME SELF-CARE Condition: Good Instructions (If sedation given, give patient instructions): Migraine Headache (ED) Additional Instructions: Take Zofran as needed every 8 hours. Follow-up with your pain management doctor. Return to the emergency department if you have any worsening symptoms. Is patient prescribed a controlled substance at d/c from ED?: No Referrals: José Reece MD [Primary Care Provider] - 1-2 days Time of Disposition: 22:51
[2018-10-27] MEDS ORDERED: ONDANSETRON 4 MG ODT STARTER PACK 2 TAB BTL PO STA (22:52)
[2018-10-27 23:27] VITALS: BP 119/81; PULSE 99
== END 2018-10-27 23:27 | disposition home or self-care (01) ==
LOC: EC 21:35
DX: G43.909 Migraine, unspecified, not intractable, without status migrainosus (principal); E78.5 Hyperlipidemia, unspecified; G40.909 Epilepsy, unspecified, not intractable, without status epilepticus; G89.29 Other chronic pain; F41.0 Panic disorder [episodic paroxysmal anxiety]; Z79.891 Long term (current) use of opiate analgesic; Z79.899 Other long term (current) drug therapy; Z88.8 Allergy status to other drugs, medicaments and biological substances; Z91.040 Latex allergy status; Z88.6 Allergy status to analgesic agent; Z88.0 Allergy status to penicillin; Z88.1 Allergy status to other antibiotic agents; Z91.048 Other nonmedicinal substance allergy status; Z98.51 Tubal ligation status
CPT/HCPCS: 99283; 96372; J1170; S0119

== ENCOUNTER 2018-11-20 00:55 | Emergency (ER) | payer OTHER ==
[2018-11-20] MEDS ORDERED: ONDANSETRON 4 MG/2 ML VIAL IVP STA (02:35)
[2018-11-20] MEDS ORDERED: diphenhydrAMINE 50 MG/ML 1 ML VIAL IM STA (02:35)
[2018-11-20] MEDS ORDERED: HYDROmorphone 1 MG/ML 1 ML SYRINGE IM STA (02:36)
--- NOTE | 2018-11-20 02:38 | ED ---
Headache HPI - General Chief Complaint: Headache Stated Complaint: Migraine Mode of arrival: ambulatory Limitations: no limitations - History of Present Illness Initial Comments: Sara is a 48-year-old female with a history of chronic migraines who presents to the emergency department today for evaluation and treatment of recurrent migraine. Patient reports that this headache is been ongoing for 6 days she has tried her home medications including [place] with minimal improvement. She states that she was scheduled to see her neurologist in the upcoming week and was trying to put off coming the ER however tonight the headache became intolerable which prompted her visit to the ER tonight. Patient reports this headache is identical to previous, it was not sudden onset is not the worse headache of her life is not associated with fever or any meningeal signs. MD Complaint: headache Onset/Timin -: days(s) Onset Description: gradual Location: diffuse Severity: severe Quality: aching, throbbing, full Consistency: constant Improves With: nothing Worsens With: light, noise Associated Symptoms: photophobia, sensitivity to sound Treatments Prior to Arrival: prescription analgesic, antiemetic, migraine medication - Related Data Home Medications Medication Instructions Recorded Confirmed Atorvastatin [Lipitor] 40 mg PO HS 04/02/17 10/27/18 Lacosamide [Vimpat] 100 mg PO BID 06/04/17 10/27/18 HYDROcodone/APAP 7.5-325MG [[place] 1 tab PO TID 07/06/17 10/27/18 7.5-325] Cetirizine HCl [Zyrtec] 10 mg PO DAILY 10/26/18 10/27/18 amLODIPine [Norvasc] 5 mg PO DAILY 10/26/18 10/27/18 Nortriptyline [Pamelor] 25 mg PO HS 10/27/18 10/27/18 Allergies Allergy/AdvReac Type Severity Reaction Status Date / Time dihydroergotamine Allergy Unknown Unknown Verified 11/20/18 01:01 [From Migranal] gabapentin [From Neurontin] Allergy Itching/Swe Verified 11/20/18 01:01 lling latex Allergy Anaphylaxis Verified 11/20/18 01:01 naproxen [From Naprosyn] Allergy Anaphylaxis Verified 11/20/18 01:01 Penicillins Allergy Anaphylaxis Verified 11/20/18 01:01 quetiapine fumarate Allergy Itching, Verified 11/20/18 01:01 [From Seroquel] leg cramps rofecoxib [From Vioxx] Allergy Itching, Verified 11/20/18 01:01 leg cramps terfenadine [From Seldane] Allergy Rash/Hives Verified 11/20/18 01:01 tramadol Allergy Nausea & Verified 11/20/18 01:01 Vomiting/LEG CRAMPS/HEART FLUTTERS calcium carbonate [From DHEA] AdvReac Chest Pain Verified 11/20/18 01:01 calcium phosphate,dibasic AdvReac Chest Pain Verified 11/20/18 01:01 [From DHEA] clindamycin AdvReac muscle Verified 11/20/18 01:01 cramps clonidine AdvReac fast Verified 11/20/18 01:01 heartbeat, migraine dextromethorphan HBr AdvReac face/neck Verified 11/20/18 01:01 [From NyQuil] flushing diazepam [From Valium] AdvReac Nausea & Verified 11/20/18 01:01 Vomiting divalproex sodium AdvReac Nausea & Verified 11/20/18 01:01 [From Depakote] Vomiting doxylamine [From NyQuil] AdvReac face "beet Verified 11/20/18 01:01 red", elevated temp. ibuprofen [From Motrin] AdvReac abdominal Verified 11/20/18 01:01 & muscle cramps indomethacin [From Indocin] AdvReac Abdominal Verified 11/20/18 01:01 Pain,N/V ketorolac tromethamine AdvReac "built up Verified 11/20/18 01:01 [From Toradol] in system", had to be given something to reverse lorazepam [From Ativan] AdvReac Nausea & Verified 11/20/18 01:01 Vomiting metoclopramide HCl AdvReac muscle Verified 11/20/18 01:01 [From Reglan] cramps prasterone (DHEA) [From DHEA] AdvReac Chest Pain Verified 11/20/18 01:01 prochlorperazine AdvReac leg Verified 11/20/18 01:01 [From Compazine] cramping propranolol AdvReac Chest Pain Verified 11/20/18 01:01 pseudoephedrine HCl AdvReac face "beet Verified 11/20/18 01:01 [From NyQuil] red", elevated temp. quetiapine [From Seroquel] AdvReac leg Verified 11/20/18 01:01 cramping sumatriptan [From Imitrex] AdvReac migrane Verified 11/20/18 01:01 sumatriptan succinate AdvReac migrane Verified 11/20/18 01:01 [From Imitrex] topiramate [From Topamax] AdvReac "built up Verified 11/20/18 01:01 in system", had to be given something to reverse trazodone AdvReac "built up Verified 11/20/18 01:01 in system", had to be given something to reverse zolpidem tartrate AdvReac "Became Verified 11/20/18 01:01 [From Ambien] violent with no memory" zonisamide [From Zonegran] AdvReac inability Verified 11/20/18 01:01 to eat artificial sweetener AdvReac SEVERE Uncoded 11/20/18 01:01 MIGRAINE HEADACHE Review of Systems ROS Statement: Those systems with pertinent positive or pertinent negative responses have been documented in the HPI. ROS Other: All systems not noted in ROS Statement are negative. Past Medical History Past Medical History: Hyperlipidemia, Seizure Disorder Additional Past Medical History / Comment(s): Migraines, viral meningitis x3 as a child, 1995, 2000, chronic back pain, nerve blocks 08/2016 and 12/2016. Last seizure 07/22/2017, "ABSENTEE SEIZURES. HX TACHYCARDIA, GB/CIPD History of Any Multi-Drug Resistant Organisms: None Reported Past Surgical History: Appendectomy, Section, Cholecystectomy, Hernia Repair, Hysterectomy, Orthopedic Surgery, Tonsillectomy, Tubal Ligation Additional Past Surgical History / Comment(s): Hiatal Hernia, umbilical hernia repair, left rotator cuff repair, bilateral knee scopes, pain clinic procedures- occipital nerve block on 01/05/2017. abd exploratory sx(endometreosis), 3 abd scopes 1981, 1989, 1991), lumbar puncture. EGD. nerve biopsy, Past Anesthesia/Blood Transfusion Reactions: No Reported Reaction Additional Past Anesthesia/Blood Transfusion Reaction / Comment(s): Claustroph obic Past Psychological History: Anxiety, Bipolar, Panic Disorder Smoking Status: Current every day smoker Past Alcohol Use History: None Reported Past Drug Use History: None Reported - Past Family History Mother Family Medical History: Cancer, Dementia, Diabetes Mellitus, GERD/Reflux, Hyperlipidemia, Hypertension, Thyroid Disorder Additional Family Medical History / Comment(s): Quad CABG, cardiac stents, toes ampuated. Father History Unknown: Yes Family Medical History: No Reported History General Exam - General Exam Comments Initial Comments: Physical Exam GENERAL: Uncomfortable appearing female sitting up in bed wearing sunglasses HENT: Normocephalic, Atraumatic. EYES: PERRL, EOMI PULMONARY: Unlabored respirations. No audible rales rhonchi or wheezing was noted. CARDIOVASCULAR: There is a regular rate and rhythm without any murmurs gallops or rubs. ABDOMEN: Soft and nontender with normal bowel sounds. SKIN: Skin is clear with no lesions or rashes and otherwise unremarkable. : Deferred NEUROLOGIC: Patient is alert and oriented x3. Moving all extremities spontaneously MUSCULOSKELETAL: Normal extremities with adequate strength and full range of motion. No lower extremity swelling or edema. No calf tenderness. PSYCHIATRIC: Normal psychiatric evaluation. Limitations: no limitations Course Vital Signs 11/20/18 11/20/18 00:58 05:26 Temperature 97.8 F 98.0 F Pulse Rate 102 H 106 H Respiratory 20 18 Rate Blood Pressure 136/96 115/90 O2 Sat by Pulse 100 95 Oximetry Medical Decision Making - Medical Decision Making The patient was seen and evaluated history was obtained from patient and review of medical record This is a 48 her old female with chronic migraines multiple drug ALLERGIES who presents for management of recurrent migraine Previously the patient has had successful treatment receiving Benadryl Zofran and Dilaudid which is ordered with mild persistent headache after meds, repeat dose of Dilaudid was ordered and patient was discharged home plan follow up with neurology as scheduled. Disposition Clinical Impression: Migraine Disposition: HOME SELF-CARE Condition: Stable Instructions (If sedation given, give patient instructions): Acute Headache (ED) Is patient prescribed a controlled substance at d/c from ED?: No Referrals: José Reece MD [Primary Care Provider] - 1-2 days
[2018-11-20] MEDS ORDERED: HYDROmorphone 1 MG/ML 1 ML SYRINGE IVP STA (04:41)
[2018-11-20 05:27] VITALS: BP 115/90; PULSE 106; RESP 18; TEMP 98
== END 2018-11-20 05:30 | disposition home or self-care (01) ==
LOC: EC 00:55
DX: G43.909 Migraine, unspecified, not intractable, without status migrainosus (principal); E78.5 Hyperlipidemia, unspecified; G40.A09 Absence epileptic syndrome, not intractable, without status epilepticus; G89.29 Other chronic pain; F31.9 Bipolar disorder, unspecified; F41.9 Anxiety disorder, unspecified; F17.200 Nicotine dependence, unspecified, uncomplicated; Z88.0 Allergy status to penicillin; Z88.1 Allergy status to other antibiotic agents; Z88.2 Allergy status to sulfonamides; Z88.6 Allergy status to analgesic agent; Z88.8 Allergy status to other drugs, medicaments and biological substances; Z91.02 Food additives allergy status; Z91.040 Latex allergy status; Z79.891 Long term (current) use of opiate analgesic; Z79.899 Other long term (current) drug therapy
CPT/HCPCS: 99283; 96374; 96375; 96372 ×2; J1200; J2405; J1170

== ENCOUNTER 2018-11-24 23:43 | Emergency (ER) | payer OTHER ==
[2018-11-25 00:05] VITALS: TEMP 97.9
[2018-11-25] MEDS ORDERED: diphenhydrAMINE 50 MG/ML 1 ML VIAL IVP STA (01:27)
[2018-11-25] MEDS ORDERED: ONDANSETRON 4 MG/2 ML VIAL IVP STA (01:27)
[2018-11-25] MEDS ORDERED: HYDROmorphone 1 MG/ML 1 ML SYRINGE IVP STA (01:27)
[2018-11-25] MEDS ORDERED: SODIUM CHLORIDE 0.9% 500 ML 500 ML IV ONE (01:28)
[2018-11-25] MEDS ORDERED: HYDROmorphone 0.5 MG/0.5 ML SYRINGE IVP STA (03:23)
--- NOTE | 2018-11-25 03:25 | ED ---
Headache HPI - General Chief Complaint: Headache Stated Complaint: Migraine Time Seen by Provider: 11/25/18 01:22 Mode of arrival: ambulatory Limitations: no limitations - History of Present Illness Initial Comments: 48 year-old female patient with past medical history significant for migraine headaches presents to the emergency department today for evaluation of headache. Patient states she's had this headache for the last 2 days. States it is frontal and behind her right eye. Patient states she is having blurred vision and light sensitivity. She is also reporting sound sensitivity and nausea. Denies any vomiting. States she did take ibuprofen in addition to ice therapy and acupressure at home. States that none of her methods working. States that this headache is consistent with her usual migraine pattern. She denies this being the worse headache of her life. Denies any new symptoms with this headache. Patient denies any recent rash, fever, chills, shortness breath, chest pain, abdominal pain, diarrhea, constipation, back pain, numbness, tingling, dizziness, weakness, hematuria, dysuria, urinary urgency, urinary frequency, or any other complaints. - Related Data Home Medications Medication Instructions Recorded Confirmed Atorvastatin [Lipitor] 40 mg PO HS 04/02/17 10/27/18 Lacosamide [Vimpat] 100 mg PO BID 06/04/17 10/27/18 HYDROcodone/APAP 7.5-325MG [[place] 1 tab PO TID 07/06/17 10/27/18 7.5-325] Cetirizine HCl [Zyrtec] 10 mg PO DAILY 10/26/18 10/27/18 amLODIPine [Norvasc] 5 mg PO DAILY 10/26/18 10/27/18 Nortriptyline [Pamelor] 25 mg PO HS 10/27/18 10/27/18 Allergies Allergy/AdvReac Type Severity Reaction Status Date / Time dihydroergotamine Allergy Unknown Unknown Verified 11/25/18 00:04 [From Migranal] gabapentin [From Neurontin] Allergy Itching/Swe Verified 11/25/18 00:04 lling latex Allergy Anaphylaxis Verified 11/25/18 00:04 naproxen [From Naprosyn] Allergy Anaphylaxis Verified 11/25/18 00:04 Penicillins Allergy Anaphylaxis Verified 11/25/18 00:04 prednisone Allergy Swelling Verified 11/25/18 00:05 quetiapine fumarate Allergy Itching, Verified 11/25/18 00:04 [From Seroquel] leg cramps rofecoxib [From Vioxx] Allergy Itching, Verified 11/25/18 00:04 leg cramps terfenadine [From Seldane] Allergy Rash/Hives Verified 11/25/18 00:04 tramadol Allergy Nausea & Verified 11/25/18 00:04 Vomiting/LEG CRAMPS/HEART FLUTTERS calcium carbonate [From DHEA] AdvReac Chest Pain Verified 11/25/18 00:04 calcium phosphate,dibasic AdvReac Chest Pain Verified 11/25/18 00:04 [From DHEA] clindamycin AdvReac muscle Verified 11/25/18 00:04 cramps clonidine AdvReac fast Verified 11/25/18 00:04 heartbeat, migraine dextromethorphan HBr AdvReac face/neck Verified 11/25/18 00:04 [From NyQuil] flushing diazepam [From Valium] AdvReac Nausea & Verified 11/25/18 00:04 Vomiting divalproex sodium AdvReac Nausea & Verified 11/25/18 00:04 [From Depakote] Vomiting doxylamine [From NyQuil] AdvReac face "beet Verified 11/25/18 00:04 red", elevated temp. ibuprofen [From Motrin] AdvReac abdominal Verified 11/25/18 00:04 & muscle cramps indomethacin [From Indocin] AdvReac Abdominal Verified 11/25/18 00:04 Pain,N/V ketorolac tromethamine AdvReac "built up Verified 11/25/18 00:04 [From Toradol] in system", had to be given something to reverse lorazepam [From Ativan] AdvReac Nausea & Verified 11/25/18 00:04 Vomiting metoclopramide HCl AdvReac muscle Verified 11/25/18 00:04 [From Reglan] cramps prasterone (DHEA) [From DHEA] AdvReac Chest Pain Verified 11/25/18 00:04 prochlorperazine AdvReac leg Verified 11/25/18 00:04 [From Compazine] cramping propranolol AdvReac Chest Pain Verified 11/25/18 00:04 pseudoephedrine HCl AdvReac face "beet Verified 11/25/18 00:04 [From NyQuil] red", elevated temp. quetiapine [From Seroquel] AdvReac leg Verified 11/25/18 00:04 cramping sumatriptan [From Imitrex] AdvReac migrane Verified 11/25/18 00:04 sumatriptan succinate AdvReac migrane Verified 11/25/18 00:04 [From Imitrex] topiramate [From Topamax] AdvReac "built up Verified 11/25/18 00:04 in system", had to be given something to reverse trazodone AdvReac "built up Verified 11/25/18 00:04 in system", had to be given something to reverse zolpidem tartrate AdvReac "Became Verified 11/25/18 00:04 [From Ambien] violent with no memory" zonisamide [From Zonegran] AdvReac inability Verified 11/25/18 00:04 to eat artificial sweetener AdvReac SEVERE Uncoded 11/25/18 00:04 MIGRAINE HEADACHE Review of Systems ROS Statement: Those systems with pertinent positive or pertinent negative responses have been documented in the HPI. ROS Other: All systems not noted in ROS Statement are negative. Past Medical History Past Medical History: Hyperlipidemia, Seizure Disorder Additional Past Medical History / Comment(s): Migraines, viral meningitis x3 as a child, 1995, 2000, chronic back pain, nerve blocks 08/2016 and 12/2016. Last seizure 07/22/2017, "ABSENTEE SEIZURES. HX TACHYCARDIA, GB/CIPD History of Any Multi-Drug Resistant Organisms: None Reported Past Surgical History: Appendectomy, Section, Cholecystectomy, Hernia Repair, Hysterectomy, Orthopedic Surgery, Tonsillectomy, Tubal Ligation Additional Past Surgical History / Comment(s): Hiatal Hernia, umbilical hernia repair, left rotator cuff repair, bilateral knee scopes, pain clinic procedures-occipital nerve block on 01/05/2017. abd exploratory sx(endometreosis), 3 abd scopes 1981, 1989, 1991), lumbar puncture. EGD. nerve biopsy, Past Anesthesia/Blood Transfusion Reactions: No Reported Reaction Additional Past Anesthesia/Blood Transfusion Reaction / Comment(s): Claustrophobic Past Psychological History: Anxiety, Bipolar, Panic Disorder Smoking Status: Current every day smoker Past Alcohol Use History: None Reported Past Drug Use History: None Reported - Past Family History Mother Family Medical History: Cancer, Dementia, Diabetes Mellitus, GERD/Reflux, Hyperlipidemia, Hypertension, Thyroid Disorder Additional Family Medical History / Comment(s): Quad CABG, cardiac stents, toes ampuated. Father History Unknown: Yes Family Medical History: No Reported History General Exam Limitations: no limitations General appearance: alert, in no apparent distress, other (This is a well- developed, well-nourished adult female patient in no acute distress. Vital signs upon presentation are temperature 97.9F, pulse 118, respirations 22, b lood pressure 144/100, pulse ox 97% on room air.) Eye exam: Present: normal appearance, PERRL, EOMI. Absent: scleral icterus, conjunctival injection, nystagmus, periorbital swelling ENT exam: Present: normal exam, normal oropharynx, mucous membranes moist Respiratory exam: Present: normal lung sounds bilaterally. Absent: respiratory distress, wheezes, rales, rhonchi, stridor Cardiovascular Exam: Present: regular rate, normal rhythm, normal heart sounds. Absent: systolic murmur, diastolic murmur, rubs, gallop, clicks GI/Abdominal exam: Present: soft, normal bowel sounds. Absent: distended, tenderness, guarding, rebound, rigid Neurological exam: Present: alert, oriented X3, CN II-XII intact, other (Strength in all 4 extremities is 5/5) Psychiatric exam: Present: normal affect, normal mood Skin exam: Present: warm, dry, intact, normal color. Absent: rash Course Vital Signs 11/25/18 11/25/18 00:03 03:36 Temperature 97.9 F Pulse Rate 118 H 105 H Respiratory 22 18 Rate Blood Pressure 144/100 138/110 O2 Sat by Pulse 97 96 Oximetry Medical Decision Making - Medical Decision Making 48 old female patient presented to the emergency department today for evaluation of migraine headache. Patient states symptoms are consistent with her usual migraine pattern. She denies new symptoms. Denies being the worst headache of her life. Physical examination is unremarkable. She was neurologically intact with no focal deficits. She was given IV fluids and pain medication in the emergency department. Upon reevaluation she does report improvement of symptoms. She was discharged to follow-up with her primary care physician for recheck in 1-2 days. Return parameters were discussed in detail. She verbalizes understanding and agrees with this plan. Disposition Clinical Impression: Migraine headache Disposition: HOME SELF-CARE Condition: Good Instructions (If sedation given, give patient instructions): Migraine Headache (ED) Additional Instructions: Increase fluids. Continue home medications. Follow up with your primary care physician in 1-2 days. Return to the emergency department for any new, worsening, or concerning symptoms. Is patient prescribed a controlled substance at d/c from ED?: No Referrals: José Reece MD [Primary Care Provider] - 1-2 days Time of Disposition: 03:25
[2018-11-25 03:37] VITALS: BP 138/110; PULSE 105; RESP 18
== END 2018-11-25 03:40 | disposition home or self-care (01) ==
LOC: EC 23:43
DX: G43.909 Migraine, unspecified, not intractable, without status migrainosus (principal); E78.5 Hyperlipidemia, unspecified; G40.909 Epilepsy, unspecified, not intractable, without status epilepticus; F41.9 Anxiety disorder, unspecified; F31.9 Bipolar disorder, unspecified; F17.200 Nicotine dependence, unspecified, uncomplicated; Z86.69 Personal history of other diseases of the nervous system and sense organs; Z79.891 Long term (current) use of opiate analgesic; Z79.899 Other long term (current) drug therapy; Z88.8 Allergy status to other drugs, medicaments and biological substances; Z91.040 Latex allergy status; Z88.6 Allergy status to analgesic agent; Z88.0 Allergy status to penicillin; Z88.5 Allergy status to narcotic agent; Z88.1 Allergy status to other antibiotic agents; Z91.018 Allergy to other foods
CPT/HCPCS: 99283; 96374; 96375 ×2; 96376; 96361 ×2; J1200; J2405; J1170 ×2

== ENCOUNTER 2018-11-27 19:47 | Emergency (ER) | payer OTHER ==
[2018-11-27 19:51] VITALS: RESP 18; TEMP 97.5
[2018-11-27] MEDS ORDERED: diphenhydrAMINE 50 MG/ML 1 ML VIAL IVP STA (20:22)
[2018-11-27] MEDS ORDERED: SODIUM CHLORIDE 0.9% 1,000 ML IV STA (20:22)
[2018-11-27] MEDS ORDERED: HYDROmorphone 0.5 MG/0.5 ML SYRINGE IVP STA ×2 (20:22→21:34)
[2018-11-27] MEDS ORDERED: ONDANSETRON 4 MG/2 ML VIAL IVP STA (20:22)
--- NOTE | 2018-11-27 20:50 | ED ---
General Adult HPI - General Chief complaint: Headache Stated complaint: Migrane,nausea,vomiting Time Seen by Provider: 11/27/18 19:52 Source: patient, RN notes reviewed, old records reviewed Mode of arrival: wheelchair Limitations: no limitations - History of Present Illness Initial comments: 48-year-old female patient past medical history of migraine headaches presents to ED with chief complaint of migraine headaches. Patient reports headache is exactly same as it has been past. Denies thunderclap onset, denies worst headache of life, denies stiff neck, denies loss of consciousness. Frontal headache is behind left eye, nausea vomiting. Denies any new onset weakness or paresthesias. Systemic: Pt denies fatigue, fever/chills, rash. Pt denies weakness, night sweats, weight loss. Neuro: Pt denies visual disturbances, syncope or pre-syncope. HEENT: Pt denies ocular discharge or irritation, otalgia, rhinorrhea, pharyngitis or notable lymphadenopathy. Cardiopulmonary: Pt denies chest pain, SOB, heart palpitations, dyspnea on exertion. Abdominal/GI: Pt denies abdominal pain, n/v/d. : Pt denies dysuria, burning w/ urination, frequency/urgency. Denies new onset urinary or bowel incontinence. MSK: Pt denies myalgia, loss of strength or function in extremities. Neuro: Pt denies new onset weakness, paresthesias. - Related Data Home Medications Medication Instructions Recorded Confirmed Atorvastatin [Lipitor] 40 mg PO HS 04/02/17 10/27/18 Lacosamide [Vimpat] 100 mg PO BID 06/04/17 10/27/18 HYDROcodone/APAP 7.5-325MG [[place] 1 tab PO TID 07/06/17 10/27/18 7.5-325] Cetirizine HCl [Zyrtec] 10 mg PO DAILY 10/26/18 10/27/18 amLODIPine [Norvasc] 5 mg PO DAILY 10/26/18 10/27/18 Nortriptyline [Pamelor] 25 mg PO HS 10/27/18 10/27/18 Allergies Allergy/AdvReac Type Severity Reaction Status Date / Time dihydroergotamine Allergy Unknown Unknown Verified 11/27/18 19:51 [From Migranal] gabapentin [From Neurontin] Allergy Itching/Swe Verified 11/27/18 19:51 lling latex Allergy Anaphylaxis Verified 11/27/18 19:51 naproxen [From Naprosyn] Allergy Anaphylaxis Verified 11/27/18 19:51 Penicillins Allergy Anaphylaxis Verified 11/27/18 19:51 prednisone Allergy Swelling Verified 11/27/18 19:51 quetiapine fumarate Allergy Itching, Verified 11/27/18 19:51 [From Seroquel] leg cramps rofecoxib [From Vioxx] Allergy Itching, Verified 11/27/18 19:51 leg cramps terfenadine [From Seldane] Allergy Rash/Hives Verified 11/27/18 19:51 tramadol Allergy Nausea & Verified 11/27/18 19:51 Vomiting/LEG CRAMPS/HEART FLUTTERS calcium carbonate [From DHEA] AdvReac Chest Pain Verified 11/27/18 19:51 calcium phosphate,dibasic AdvReac Chest Pain Verified 11/27/18 19:51 [From DHEA] clindamycin AdvReac muscle Verified 11/27/18 19:51 cramps clonidine AdvReac fast Verified 11/27/18 19:51 heartbeat, migraine dextromethorphan HBr AdvReac face/neck Verified 11/27/18 19:51 [From NyQuil] flushing diazepam [From Valium] AdvReac Nausea & Verified 11/27/18 19:51 Vomiting divalproex sodium AdvReac Nausea & Verified 11/27/18 19:51 [From Depakote] Vomiting doxylamine [From NyQuil] AdvReac face "beet Verified 11/27/18 19:51 red", elevated temp. ibuprofen [From Motrin] AdvReac abdominal Verified 11/27/18 19:51 & muscle cramps indomethacin [From Indocin] AdvReac Abdominal Verified 11/27/18 19:51 Pain,N/V ketorolac tromethamine AdvReac "built up Verified 11/27/18 19:51 [From Toradol] in system", had to be given something to reverse lorazepam [From Ativan] AdvReac Nausea & Verified 11/27/18 19:51 Vomiting metoclopramide HCl AdvReac muscle Verified 11/27/18 19:51 [From Reglan] cramps prasterone (DHEA) [From DHEA] AdvReac Chest Pain Verified 11/27/18 19:51 prochlorperazine AdvReac leg Verified 11/27/18 19:51 [From Compazine] cramping propranolol AdvReac Chest Pain Verified 11/27/18 19:51 pseudoephedrine HCl AdvReac face "beet Verified 11/27/18 19:51 [From NyQuil] red", elevated temp. quetiapine [From Seroquel] AdvReac leg Verified 11/27/18 19:51 cramping sumatriptan [From Imitrex] AdvReac migrane Verified 11/27/18 19:51 sumatriptan succinate AdvReac migrane Verified 11/27/18 19:51 [From Imitrex] topiramate [From Topamax] AdvReac "built up Verified 11/27/18 19:51 in system", had to be given something to reverse trazodone AdvReac "built up Verified 11/27/18 19:51 in system", had to be given something to reverse zolpidem tartrate AdvReac "Became Verified 11/27/18 19:51 [From Ambien] violent with no memory" zonisamide [From Zonegran] AdvReac inability Verified 11/27/18 19:51 to eat artificial sweetener AdvReac SEVERE Uncoded 11/27/18 19:51 MIGRAINE HEADACHE Review of Systems ROS Statement: Those systems with pertinent positive or pertinent negative responses have been documented in the HPI. ROS Other: All systems not noted in ROS Statement are negative. Past Medical History Past Medical History: Hyperlipidemia, Seizure Disorder Additional Past Medical History / Comment(s): Migraines, viral meningitis x3 as a child, 1995, 2000, chronic back pain, nerve blocks 08/2016 and 12/2016. Last seizure 07/22/2017, "ABSENTEE SEIZURES. HX TACHYCARDIA, GB/CIPD History of Any Multi-Drug Resistant Organisms: None Reported Past Surgical History: Appendectomy, Section, Cholecystectomy, Hernia Repair, Hysterectomy, Orthopedic Surgery, Tonsillectomy, Tubal Ligation Additional Past Surgical History / Comment(s): Hiatal Hernia, umbilical hernia repair, left rotator cuff repair, bilateral knee scopes, pain clinic procedures-occipital nerve block on 01/05/2017. abd exploratory sx(endometreosis), 3 abd scopes 1981, 1989, 1991), lumbar puncture. EGD. nerve biopsy, Past Anesthesia/Blood Transfusion Reactions: No Reported Reaction Additional Past Anesthesia/Blood Transfusion Reaction / Comment(s): Claustrophobic Past Psychological History: Anxiety, Bipolar, Panic Disorder Smoking Status: Current every day smoker Past Alcohol Use History: None Reported Past Drug Use History: None Reported - Past Family History Mother Family Medical History: Cancer, Dementia, Diabetes Mellitus, GERD/Reflux, Hyperlipidemia, Hypertension, Thyroid Disorder Additional Family Medical History / Comment(s): Quad CABG, cardiac stents, toes ampuated. Father History Unknown: Yes Family Medical History: No Reported History General Exam - General Exam Comments Initial Comments: Constitutional: NAD, AOX3, Pt has pleasant affect. HEENT: NC/AT, trachea midline, neck supple, no lymphadenopathy. Posterior pharynx non erythematous, without exudates. External ears appear normal, without discharge. Mucous membranes moist. Eyes PERRLA, EOM intact. There is no scleral icterus. No pallor noted. Cardiopulmonary: RRR, no murmurs, rubs or gallops, no JVD noted. Lungs CTAB in anterior and posterior martin. No peripheral edema. Abdominal exam: Abdomen soft and non-distended. Abdomen non-tender to palpation in all 4 quadrants. Bowel sounds active in LLQ. No hepatosplenomegaly. No ecchym osis Neuro: CN II-XII intact. No nuchal rigidity. No raccon eyes, no miller sign, no hemotympanum. No cervical spinal tenderness. MSK: No posterior calf tenderness bilaterally, homans sign negative bilaterally. Posterior tibialis and radial pulse +2 bilaterally. Sensation intact in upper and lower extremities. Full active ROM in upper and lower extremities, 5/5 stregnth. Limitations: no limitations Course Vital Signs 11/27/18 19:48 Temperature 97.5 F L Pulse Rate 129 H Respiratory 18 Rate Blood Pressure 146/95 O2 Sat by Pulse 97 Oximetry Medical Decision Making - Medical Decision Making 48-year-old female patient past medical history of migraine headaches presents to ED with chief complaint of migraine headaches. Patient reports headache is exactly same as it has been past. Denies thunderclap onset, denies worst headache of life, denies stiff neck, denies loss of consciousness. Frontal headache is behind left eye, nausea vomiting. Denies any new onset weakness or paresthesias. Patient also has this displayed tachycardia likely secondary pain, within normal limits at discharge. Physical exams but normal neurologic exam. Patient headache relieved with antiemetics, pain medication. Patient declined CT. Case discussed with Dr. Wooten. Return precautions discussed. Disposition Clinical Impression: Migraine headache Disposition: HOME SELF-CARE Condition: Stable Instructions (If sedation given, give patient instructions): Migraine Headache (ED) Additional Instructions: Patient to adhere to previously discussed treatment plan and will take medication(s) as directed. Patient to follow up with PCP in 1-2 days. Patient to return to ED if symptoms do not improve. Return to ER if condition worsens. Is patient prescribed a controlled substance at d/c from ED?: No Referrals: José Reece MD [Primary Care Provider] - 1-2 days
[2018-11-27 21:49] VITALS: BP 127/93; PULSE 97
== END 2018-11-27 22:14 | disposition home or self-care (01) ==
LOC: EC 19:47
DX: G43.909 Migraine, unspecified, not intractable, without status migrainosus (principal); G40.909 Epilepsy, unspecified, not intractable, without status epilepticus; E78.5 Hyperlipidemia, unspecified; F31.9 Bipolar disorder, unspecified; F17.200 Nicotine dependence, unspecified, uncomplicated; Z79.899 Other long term (current) drug therapy; Z88.8 Allergy status to other drugs, medicaments and biological substances; Z91.040 Latex allergy status; Z88.0 Allergy status to penicillin; Z88.6 Allergy status to analgesic agent; Z88.1 Allergy status to other antibiotic agents; Z88.2 Allergy status to sulfonamides; Z91.02 Food additives allergy status
CPT/HCPCS: 99283; 96374; 96375 ×2; 96376; 96361; J1200; J2405; J1170

== ENCOUNTER 2018-12-21 08:28 | Emergency (ER) | payer OTHER ==
[2018-12-21 08:35] VITALS: TEMP 97.7
--- NOTE | 2018-12-21 08:53 | ED ---
Lower Extremity Injury HPI - General Chief Complaint: Extremity Injury, Lower Stated Complaint: RT FOOT AND ANKLE INJURY Time Seen by Provider: 12/21/18 08:42 Source: patient, RN notes reviewed Mode of arrival: ambulatory Limitations: no limitations - History of Present Illness Initial Comments: 48-year-old female presented to the emergency Department for right foot and ankle pain. Patient states she rolled her foot and ankle last night. Patient states that she had an injury 2 weeks prior to this and which she was casted but states that there are no fractures. Patient states she was just in too much discomfort so she was splinted in another state. Patient states she had to have the cast removed fly home. Patient states that she's been ambulating with some mild discomfort. Patient states that she's had worsening pain and swelling and bruising and she did before. - Related Data Home Medications Medication Instructions Recorded Confirmed Atorvastatin [Lipitor] 40 mg PO HS 04/02/17 12/21/18 Lacosamide [Vimpat] 100 mg PO BID 06/04/17 12/21/18 HYDROcodone/APAP 7.5-325MG [[place] 1 tab PO TID PRN 07/06/17 12/21/18 7.5-325] Cetirizine HCl [Zyrtec] 10 mg PO DAILY 10/26/18 12/21/18 amLODIPine [Norvasc] 5 mg PO DAILY 10/26/18 12/21/18 Allergies Allergy/AdvReac Type Severity Reaction Status Date / Time dihydroergotamine Allergy Unknown Unknown Verified 12/21/18 09:07 [From Migranal] gabapentin [From Neurontin] Allergy Itching/Swe Verified 12/21/18 09:07 lling latex Allergy Anaphylaxis Verified 12/21/18 09:07 naproxen [From Naprosyn] Allergy Anaphylaxis Verified 12/21/18 09:07 Penicillins Allergy Anaphylaxis Verified 12/21/18 09:07 prednisone Allergy Swelling Verified 12/21/18 09:07 quetiapine fumarate Allergy Itching, Verified 12/21/18 09:07 [From Seroquel] leg cramps rofecoxib [From Vioxx] Allergy Itching, Verified 12/21/18 09:07 leg cramps terfenadine [From Seldane] Allergy Rash/Hives Verified 12/21/18 09:07 tramadol Allergy Nausea & Verified 12/21/18 09:07 Vomiting/LEG CRAMPS/HEART FLUTTERS calcium carbonate [From DHEA] AdvReac Chest Pain Verified 12/21/18 09:07 calcium phosphate,dibasic AdvReac Chest Pain Verified 12/21/18 09:07 [From DHEA] clindamycin AdvReac muscle Verified 12/21/18 09:07 cramps clonidine AdvReac fast Verified 12/21/18 09:07 heartbeat, migraine dextromethorphan HBr AdvReac face/neck Verified 12/21/18 09:07 [From NyQuil] flushing diazepam [From Valium] AdvReac Nausea & Verified 12/21/18 09:07 Vomiting divalproex sodium AdvReac Nausea & Verified 12/21/18 09:07 [From Depakote] Vomiting doxylamine [From NyQuil] AdvReac face "beet Verified 12/21/18 09:07 red", elevated temp. ibuprofen [From Motrin] AdvReac abdominal Verified 12/21/18 09:07 & muscle cramps indomethacin [From Indocin] AdvReac Abdominal Verified 12/21/18 09:07 Pain,N/V ketorolac tromethamine AdvReac "built up Verified 12/21/18 09:07 [From Toradol] in system", had to be given something to reverse lorazepam [From Ativan] AdvReac Nausea & Verified 12/21/18 09:07 Vomiting metoclopramide HCl AdvReac muscle Verified 12/21/18 09:07 [From Reglan] cramps nortriptyline [From Pamelor] AdvReac Chest Pain Verified 12/21/18 09:07 prasterone (DHEA) [From DHEA] AdvReac Chest Pain Verified 12/21/18 09:07 prochlorperazine AdvReac leg Verified 12/21/18 09:07 [From Compazine] cramping propranolol AdvReac Chest Pain Verified 12/21/18 09:07 pseudoephedrine HCl AdvReac face "beet Verified 12/21/18 09:07 [From NyQuil] red", elevated temp. quetiapine [From Seroquel] AdvReac leg Verified 12/21/18 09:07 cramping sumatriptan [From Imitrex] AdvReac migrane Verified 12/21/18 09:07 sumatriptan succinate AdvReac migrane Verified 12/21/18 09:07 [From Imitrex] topiramate [From Topamax] AdvReac "built up Verified 12/21/18 09:07 in system", had to be given something to reverse trazodone AdvReac "built up Verified 12/21/18 09:07 in system", had to be given something to reverse zolpidem tartrate AdvReac "Became Verified 12/21/18 09:07 [From Ambien] violent with no memory" zonisamide [From Zonegran] AdvReac inability Verified 12/21/18 09:07 to eat artificial sweetener AdvReac SEVERE Uncoded 12/21/18 09:07 MIGRAINE HEADACHE Review of Systems ROS Statement: Those systems with pertinent positive or pertinent negative responses have been documented in the HPI. ROS Other: All systems not noted in ROS Statement are negative. Past Medical History Past Medical History: Hyperlipidemia, Seizure Disorder Additional Past Medical History / Comment(s): Migraines, viral meningitis x3 as a child, 1995, 2000, chronic back pain, nerve blocks 08/2016 and 12/2016. Last seizure 07/22/2017, "ABSENTEE SEIZURES. HX TACHYCARDIA, GB/CIPD History of Any Multi-Drug Resistant Organisms: None Reported Past Surgical History: Appendectomy, Section, Cholecystectomy, Hernia Repair, Hysterectomy, Orthopedic Surgery, Tonsillectomy, Tubal Ligation Additional Past Surgical History / Comment(s): Hiatal Hernia, umbilical hernia repair, left rotator cuff repair, bilateral knee scopes, pain clinic procedures- occipital nerve block on 01/05/2017. abd exploratory sx(endometreosis), 3 abd scopes 1981, 1989, 1991), lumbar puncture. EGD. nerve biopsy, Past Anesthesia/Blood Transfusion Reactions: No Reported Reaction Additional Past Anesthesia/Blood Transfusion Reaction / Comment(s): Claustrophobic Past Psychological History: Anxiety, Bipolar, Panic Disorder Smoking Status: Current every day smoker Past Alcohol Use History: None Reported Past Drug Use History: None Reported - Past Family History Mother Family Medical History: Cancer, Dementia, Diabetes Mellitus, GERD/Reflux, Hyperlipidemia, Hypertension, Thyroid Disorder Additional Family Medical History / Comment(s): Quad CABG, cardiac stents, toes ampuated. Father History Unknown: Yes Family Medical History: No Reported History General Exam Limitations: no limitations General appearance: alert, in no apparent distress Head exam: Present: atraumatic, normocephalic, normal inspection Neck exam: Present: normal inspection, full ROM. Absent: tenderness, meningismus, lymphadenopathy Respiratory exam: Present: normal lung sounds bilaterally. Absent: respiratory distress, wheezes, rales, rhonchi, stridor Cardiovascular Exam: Present: regular rate, normal rhythm, normal heart sounds. Absent: systolic murmur, diastolic murmur, rubs, gallop, clicks Extremities exam: Present: other (Lateral right ankle there is moderate swelling, ecchymosis with tenderness with palpation, right foot the lateral portion there is mild tenderness old bruising noted neurovascular intact no proximal tib-fib tenderness) Neurological exam: Present: alert Skin exam: Present: warm, dry, intact, normal color. Absent: rash Course Vital Signs 12/21/18 08:30 Temperature 97.7 F Pulse Rate 103 H Respiratory 18 Rate Blood Pressure 140/93 O2 Sat by Pulse 98 Oximetry Medical Decision Making - Medical Decision Making 48-year-old female presented emergency department for right foot and ankle pain x-rays were obtained no acute fracture. Patient's Nicholson placed in a wrapped splint. Patient will follow-up with orthopedics return for any worsening symptoms. Disposition Clinical Impression: Right ankle sprain, Right foot sprain Disposition: HOME SELF-CARE Condition: Stable Instructions (If sedation given, give patient instructions): Ankle Sprain (ED) Additional Instructions: Please return to the Emergency Department if symptoms worsen or any other concerns. Is patient prescribed a controlled substance at d/c from ED?: No Referrals: José Reece MD [Primary Care Provider] - 1-2 days Chaz Knox MD [Medical Doctor] - 1-2 days Time of Disposition: 09:32
--- NOTE | 2018-12-21 09:05 | XR ---
EXAMINATION TYPE: XR ankle complete RT, XR foot complete RT DATE OF EXAM: 12/21/2018 CLINICAL HISTORY: Fall injury today with numbness and pain. TECHNIQUE: Frontal, lateral and oblique images of the right ankle and foot are obtained. COMPARISON: None. FINDINGS: There is no acute fracture/dislocation evident in the right ankle. The ankle mortise appe ars within normal limits. The overlying soft tissue appears unremarkable. There is no acute fracture or dislocation evident in the right foot. Some flexion distal second throu gh fifth toes is present. The joint spaces in the right foot are preserved. Mild subcutaneous edema i s seen. IMPRESSION: There is no acute fracture or dislocation in the right ankle or foot.
[2018-12-21 09:38] VITALS: BP 141/74; PULSE 83; RESP 16
== END 2018-12-21 09:36 | disposition home or self-care (01) ==
LOC: EC 08:28
DX: S93.401A Sprain of unspecified ligament of right ankle, initial encounter (principal); S93.601A Unspecified sprain of right foot, initial encounter; E78.5 Hyperlipidemia, unspecified; G40.909 Epilepsy, unspecified, not intractable, without status epilepticus; F17.200 Nicotine dependence, unspecified, uncomplicated; Z79.899 Other long term (current) drug therapy; Z88.8 Allergy status to other drugs, medicaments and biological substances; Z91.040 Latex allergy status; Z88.6 Allergy status to analgesic agent; Z88.0 Allergy status to penicillin; Z88.5 Allergy status to narcotic agent; Z88.1 Allergy status to other antibiotic agents; Z91.018 Allergy to other foods; X50.1XXA Overexertion from prolonged static or awkward postures, initial encounter; Y93.01 Activity, walking, marching and hiking
CPT/HCPCS: 99283

== ENCOUNTER → 2018-12-21 | Outpatient (CLI) | payer OTHER ==
--- NOTE | 2018-12-21 09:10 | US ---
EXAMINATION TYPE: US liver DATE OF EXAM: 12/21/2018 COMPARISON: None CLINICAL HISTORY: 48-year-old female R74.8 Abnormal liver enzymes. TECHNIQUE: Multiple sonographic images of the right upper quadrant are obtained. FINDINGS: EXAM MEASUREMENTS: Liver Length: 12.9 cm Gallbladder: Surgically absent CBD: 0.8 cm Right Kidney: 9.4 x 3[address]2x 4.[address] Technologist notes: Patient of large body habitus Pancreas: Mostly obscured by bowel gas, portions visualized wnl Liver: heterogeneous Gallbladder: Surgically absent Evidence for sonographic [place]'s sign: no CBD: wnl Right Kidney: wnl IMPRESSION: 1. Heterogeneous echotexture of the liver could be on a technical basis or could reflect nonspecific hepatocellular disease. 2. Dilated bile duct 8 mm, within acceptable limits given postcholecystectomy status. 3. Suboptimal visualization of the pancreas.
== END | disposition home or self-care (01) ==
LOC: RADUSWWP 07:55
PROVIDERS: ATTEND Family Medicine
DX: K83.8 Other specified diseases of biliary tract (principal); Z90.49 Acquired absence of other specified parts of digestive tract
CPT/HCPCS: 76705

== ENCOUNTER 2018-12-28 18:31 | Emergency (ER) | payer OTHER ==
[2018-12-28 18:55] VITALS: BP 130/89; PULSE 109; RESP 18; TEMP 98.2
[2018-12-28] MEDS ORDERED: HYDROmorphone 1 MG/ML 1 ML SYRINGE IM STA (20:09)
[2018-12-28] MEDS ORDERED: ONDANSETRON 4 MG/2 ML VIAL IM STA (20:09)
[2018-12-28] MEDS ORDERED: diphenhydrAMINE 50 MG/ML 1 ML VIAL IM STA (20:09)
--- NOTE | 2018-12-28 20:11 | ED ---
Headache HPI - General Chief Complaint: Headache Stated Complaint: headache-5 days Time Seen by Provider: 12/28/18 20:05 Source: patient, RN notes reviewed Mode of arrival: wheelchair Limitations: no limitations - History of Present Illness Initial Comments: 48-year-old female presented emergency from chief complaint of migraine headache this is day 5 over headache this is her typical migraine headache that she suffers with chronically. She has tried all her medications no relief. Patient does started nausea and vomiting and photophobia. No fevers chills no neck pain or neck stiffness. Denies any URI symptoms. Denies any chest pain or shortness of breath. No focal weakness. - Related Data Home Medications Medication Instructions Recorded Confirmed Atorvastatin [Lipitor] 40 mg PO HS 04/02/17 12/28/18 Lacosamide [Vimpat] 100 mg PO BID 06/04/17 12/28/18 HYDROcodone/APAP 7.5-325MG [[place] 1 tab PO TID PRN 07/06/17 12/28/18 7.5-325] Cetirizine HCl [Zyrtec] 10 mg PO DAILY 10/26/18 12/28/18 amLODIPine [Norvasc] 5 mg PO DAILY 10/26/18 12/28/18 Allergies Allergy/AdvReac Type Severity Reaction Status Date / Time dihydroergotamine Allergy Unknown Unknown Verified 12/28/18 20:00 [From Migranal] gabapentin [From Neurontin] Allergy Itching/Swe Verified 12/28/18 20:00 lling latex Allergy Anaphylaxis Verified 12/28/18 20:00 naproxen [From Naprosyn] Allergy Anaphylaxis Verified 12/28/18 20:00 Penicillins Allergy Anaphylaxis Verified 12/28/18 20:00 prednisone Allergy Swelling Verified 12/28/18 20:00 quetiapine fumarate Allergy Itching, Verified 12/28/18 20:00 [From Seroquel] leg cramps rofecoxib [From Vioxx] Allergy Itching, Verified 12/28/18 20:00 leg cramps terfenadine [From Seldane] Allergy Rash/Hives Verified 12/28/18 20:00 tramadol Allergy Nausea & Verified 12/28/18 20:00 Vomiting/LEG CRAMPS/HEART FLUTTERS calcium carbonate [From DHEA] AdvReac Chest Pain Verified 12/28/18 20:00 calcium phosphate,dibasic AdvReac Chest Pain Verified 12/28/18 20:00 [From DHEA] clindamycin AdvReac muscle Verified 12/28/18 20:00 cramps clonidine AdvReac fast Verified 12/28/18 20:00 heartbeat, migraine dextromethorphan HBr AdvReac face/neck Verified 12/28/18 20:00 [From NyQuil] flushing diazepam [From Valium] AdvReac Nausea & Verified 12/28/18 20:00 Vomiting divalproex sodium AdvReac Nausea & Verified 12/28/18 20:00 [From Depakote] Vomiting doxylamine [From NyQuil] AdvReac face "beet Verified 12/28/18 20:00 red", elevated temp. ibuprofen [From Motrin] AdvReac abdominal Verified 12/28/18 20:00 & muscle cramps indomethacin [From Indocin] AdvReac Abdominal Verified 12/28/18 20:00 Pain,N/V ketorolac tromethamine AdvReac "built up Verified 12/28/18 20:00 [From Toradol] in system", had to be given something to reverse lorazepam [From Ativan] AdvReac Nausea & Verified 12/28/18 20:00 Vomiting metoclopramide HCl AdvReac muscle Verified 12/28/18 20:00 [From Reglan] cramps nortriptyline [From Pamelor] AdvReac Chest Pain Verified 12/28/18 20:00 prasterone (DHEA) [From DHEA] AdvReac Chest Pain Verified 12/28/18 20:00 prochlorperazine AdvReac leg Verified 12/28/18 20:00 [From Compazine] cramping propranolol AdvReac Chest Pain Verified 12/28/18 20:00 pseudoephedrine HCl AdvReac face "beet Verified 12/28/18 20:00 [From NyQuil] red", elevated temp. quetiapine [From Seroquel] AdvReac leg Verified 12/28/18 20:00 cramping sumatriptan [From Imitrex] AdvReac migrane Verified 12/28/18 20:00 sumatriptan succinate AdvReac migrane Verified 12/28/18 20:00 [From Imitrex] topiramate [From Topamax] AdvReac "built up Verified 12/28/18 20:00 in system", had to be given something to reverse trazodone AdvReac "built up Verified 12/28/18 20:00 in system", had to be given something to reverse zolpidem tartrate AdvReac "Became Verified 12/28/18 20:00 [From Ambien] violent with no memory" zonisamide [From Zonegran] AdvReac inability Verified 12/28/18 20:00 to eat artificial sweetener AdvReac SEVERE Uncoded 12/28/18 18:55 MIGRAINE HEADACHE Review of Systems ROS Statement: Those systems with pertinent positive or pertinent negative responses have been documented in the HPI. ROS Other: All systems not noted in ROS Statement are negative. Past Medical History Past Medical History: Hyperlipidemia, Seizure Disorder Additional Past Medical History / Comment(s): Migraines, viral meningitis x3 as a child, 1995, 2000, chronic back pain, nerve blocks 08/2016 and 12/2016. Last seizure 07/22/2017, "ABSENTEE SEIZURES. HX TACHYCARDIA, GB/CIPD History of Any Multi-Drug Resistant Organisms: None Reported Past Surgical History: Appendectomy, Section, Cholecystectomy, Hernia Repair, Hysterectomy, Orthopedic Surgery, Tonsillectomy, Tubal Ligation Additional Past Surgical History / Comment(s): Hiatal Hernia, umbilical hernia repair, left rotator cuff repair, bilateral knee scopes, pain clinic procedures- occipital nerve block on 01/05/2017. abd exploratory sx(endometreosis), 3 abd scopes 1981, 1989, 1991), lumbar puncture. EGD. nerve biopsy, Past Anesthesia/Blood Transfusion Reactions: No Reported Reaction Additional Past Anesthesia/Blood Transfusion Reaction / Comment(s): Claustrophobic Past Psychological History: Anxiety, Bipolar, Panic Disorder Smoking Status: Current every day smoker Past Alcohol Use History: None Reported Past Drug Use History: None Reported - Past Family History Mother Family Medical History: Cancer, Dementia, Diabetes Mellitus, GERD/Reflux, Hyperlipidemia, Hypertension, Thyroid Disorder Additional Family Medical History / Comment(s): Quad CABG, cardiac stents, toes ampuated. Father History Unknown: Yes Family Medical History: No Reported History General Exam Limitations: no limitations General appearance: alert, in no apparent distress Head exam: Present: atraumatic, normocephalic, normal inspection Eye exam: Present: normal appearance, PERRL, EOMI. Absent: scleral icterus, conjunctival injection, periorbital swelling ENT exam: Present: normal exam, normal oropharynx, mucous membranes moist, TM's normal bilaterally Neck exam: Present: normal inspection, full ROM. Absent: tenderness, meningismus, lymphadenopathy Respiratory exam: Present: normal lung sounds bilaterally. Absent: respiratory distress, wheezes, rales, rhonchi, stridor Cardiovascular Exam: Present: regular rate, normal rhythm, normal heart sounds. Absent: systolic murmur, diastolic murmur, rubs, gallop, clicks GI/Abdominal exam: Present: soft, normal bowel sounds. Absent: distended, tenderness, guarding, rebound, rigid Neurological exam: Present: alert, oriented X3, CN II-XII intact, reflexes normal, other (Finger to nose intact). Absent: motor sensory deficit Skin exam: Present: warm, dry, intact, normal color. Absent: rash Course Vital Signs 12/28/18 18:53 Temperature 98.2 F Pulse Rate 109 H Respiratory 18 Rate Blood Pressure 130/89 O2 Sat by Pulse 97 Oximetry Medical Decision Making - Medical Decision Making 48 show male presented for migraine headache this is her typical migraine headache she has no red flag symptoms are not deficits. Patient will be given IM injections and discharge. Disposition Clinical Impression: Migraine Disposition: HOME SELF-CARE Condition: Stable Instructions (If sedation given, give patient instructions): Acute Headache (ED) Additional Instructions: Please return to the Emergency Department if symptoms worsen or any other concerns. Is patient prescribed a controlled substance at d/c from ED?: No Referrals: José Reece MD [Primary Care Provider] - 1-2 days Time of Disposition: 20:11
== END 2018-12-28 20:52 | disposition home or self-care (01) ==
LOC: EC 18:31
DX: G43.909 Migraine, unspecified, not intractable, without status migrainosus (principal); E78.5 Hyperlipidemia, unspecified; G40.909 Epilepsy, unspecified, not intractable, without status epilepticus; F17.200 Nicotine dependence, unspecified, uncomplicated; Z88.0 Allergy status to penicillin; Z88.1 Allergy status to other antibiotic agents; Z88.2 Allergy status to sulfonamides; Z88.6 Allergy status to analgesic agent; Z88.8 Allergy status to other drugs, medicaments and biological substances; Z91.02 Food additives allergy status; Z91.040 Latex allergy status; Z79.899 Other long term (current) drug therapy
CPT/HCPCS: 99283; 96372 ×3; J1200; J2405; J1170

== ENCOUNTER 2019-01-09 20:45 | Emergency (ER) | payer OTHER ==
[2019-01-09 21:05] VITALS: RESP 18
[2019-01-09] MEDS ORDERED: SODIUM CHLORIDE 0.9% 1,000 ML IV STA (21:42)
[2019-01-09] MEDS ORDERED: ONDANSETRON 4 MG/2 ML VIAL IVP STA (22:24)
[2019-01-09] MEDS ORDERED: HYDROmorphone 1 MG/ML 1 ML SYRINGE IVP STA (22:24)
[2019-01-09] MEDS ORDERED: diphenhydrAMINE 50 MG/ML 1 ML VIAL IVP STA (22:24)
[2019-01-09] MEDS ORDERED: HYDROmorphone 0.5 MG/0.5 ML SYRINGE IVP STA (23:15)
--- NOTE | 2019-01-09 23:55 | ED ---
Headache HPI - General Chief Complaint: Headache Stated Complaint: Migraine Time Seen by Provider: 01/09/19 21:41 Mode of arrival: ambulatory Limitations: no limitations - History of Present Illness Initial Comments: Hopes a 48-year-old female with a history of chronic migraines presenting to the ER today with a migraine. Patient is currently referred to [facility] [place] [facility] for follow-up with her migraine center. Patient reports she's been having this migraine for 2 days duration she's taken her home [place] with no improvement. MD Complaint: headache -: days(s) Onset Description: gradual Location: diffuse Severity: severe Severity scale (1-10): 10 Quality: aching, throbbing, similar to previous headaches Consistency: constant Improves With: nothing Worsens With: light, noise Associated Symptoms: nausea, photophobia, sensitivity to sound Treatments Prior to Arrival: Acetaminophen, prescription analgesic ([place]) - Related Data Home Medications Medication Instructions Recorded Confirmed Atorvastatin [Lipitor] 40 mg PO HS 04/02/17 01/09/19 Lacosamide [Vimpat] 100 mg PO BID 06/04/17 01/09/19 HYDROcodone/APAP 7.5-325MG [[place] 1 tab PO TID PRN 07/06/17 01/09/19 7.5-325] Cetirizine HCl [Zyrtec] 10 mg PO DAILY 10/26/18 01/09/19 amLODIPine [Norvasc] 5 mg PO DAILY 10/26/18 01/09/19 Ergocalciferol [Vitamin D2] 50,000 unit PO WE 01/09/19 01/09/19 Allergies Allergy/AdvReac Type Severity Reaction Status Date / Time dihydroergotamine Allergy Unknown Unknown Verified 01/09/19 22:20 [From Migranal] gabapentin [From Neurontin] Allergy Itching/Swe Verified 01/09/19 22:20 lling latex Allergy Anaphylaxis Verified 01/09/19 22:20 naproxen [From Naprosyn] Allergy Anaphylaxis Verified 01/09/19 22:20 Penicillins Allergy Anaphylaxis Verified 01/09/19 22:20 prednisone Allergy Swelling Verified 01/09/19 22:20 quetiapine fumarate Allergy Itching, Verified 01/09/19 22:20 [From Seroquel] leg cramps rofecoxib [From Vioxx] Allergy Itching, Verified 01/09/19 22:20 leg cramps terfenadine [From Seldane] Allergy Rash/Hives Verified 01/09/19 22:20 tramadol Allergy Nausea & Verified 01/09/19 22:20 Vomiting/LEG CRAMPS/HEART FLUTTERS calcium carbonate [From DHEA] AdvReac Chest Pain Verified 01/09/19 22:20 calcium phosphate,dibasic AdvReac Chest Pain Verified 01/09/19 22:20 [From DHEA] clindamycin AdvReac muscle Verified 01/09/19 22:20 cramps clonidine AdvReac fast Verified 01/09/19 22:20 heartbeat, migraine dextromethorphan HBr AdvReac face/neck Verified 01/09/19 22:20 [From NyQuil] flushing diazepam [From Valium] AdvReac Nausea & Verified 01/09/19 22:20 Vomiting divalproex sodium AdvReac Nausea & Verified 01/09/19 22:20 [From Depakote] Vomiting doxylamine [From NyQuil] AdvReac face "beet Verified 01/09/19 22:20 red", elevated temp. ibuprofen [From Motrin] AdvReac abdominal Verified 01/09/19 22:20 & muscle cramps indomethacin [From Indocin] AdvReac Abdominal Verified 01/09/19 22:20 Pain,N/V ketorolac tromethamine AdvReac "built up Verified 01/09/19 22:20 [From Toradol] in system", had to be given something to reverse lorazepam [From Ativan] AdvReac Nausea & Verified 01/09/19 22:20 Vomiting metoclopramide HCl AdvReac muscle Verified 01/09/19 22:20 [From Reglan] cramps nortriptyline [From Pamelor] AdvReac Chest Pain Verified 01/09/19 22:20 prasterone (DHEA) [From DHEA] AdvReac Chest Pain Verified 01/09/19 22:20 prochlorperazine AdvReac leg Verified 01/09/19 22:20 [From Compazine] cramping propranolol AdvReac Chest Pain Verified 01/09/19 22:20 pseudoephedrine HCl AdvReac face "beet Verified 01/09/19 22:20 [From NyQuil] red", elevated temp. quetiapine [From Seroquel] AdvReac leg Verified 01/09/19 22:20 cramping sumatriptan [From Imitrex] AdvReac migrane Verified 01/09/19 22:20 sumatriptan succinate AdvReac migrane Verified 01/09/19 22:20 [From Imitrex] topiramate [From Topamax] AdvReac "built up Verified 01/09/19 22:20 in system", had to be given something to reverse trazodone AdvReac "built up Verified 01/09/19 22:20 in system", had to be given something to reverse zolpidem tartrate AdvReac "Became Verified 01/09/19 22:20 [From Ambien] violent with no memory" zonisamide [From Zonegran] AdvReac inability Verified 01/09/19 22:20 to eat artificial sweetener AdvReac SEVERE Uncoded 01/09/19 21:05 MIGRAINE HEADACHE Review of Systems ROS Statement: Those systems with pertinent positive or pertinent negative responses have been documented in the HPI. ROS Other: All systems not noted in ROS Statement are negative. Past Medical History Past Medical History: Hyperlipidemia, Seizure Disorder Additional Past Medical History / Comment(s): Migraines, viral meningitis x3 as a child, 1995, 2000, chronic back pain, nerve blocks 08/2016 and 12/2016. Last seizure 07/22/2017, "ABSENTEE SEIZURES. HX TACHYCARDIA, GB/CIPD History of Any Multi-Drug Resistant Organisms: None Reported Past Surgical History: Appendectomy, Section, Cholecystectomy, Hernia Repair, Hysterectomy, Orthopedic Surgery, Tonsillectomy, Tubal Ligation Additional Past Surgical History / Comment(s): Hiatal Hernia, umbilical hernia repair, left rotator cuff repair, bilateral knee scopes, pain clinic procedures- occipital nerve block on 01/05/2017. abd exploratory sx(endometreosis), 3 abd scopes 1981, 1989, 1991), lumbar puncture. EGD. nerve biopsy, Past Anesthesia/Blood Transfusion Reactions: No Reported Reaction Additional Past Anesthesia/Blood Transfusion Reaction / Comment(s): Claustrophobic Past Psychological History: Anxiety, Bipolar, Panic Disorder Smoking Status: Current every day smoker Past Alcohol Use History: None Reported Past Drug Use History: None Reported - Past Family History Mother Family Medical History: Cancer, Dementia, Diabetes Mellitus, GERD/Reflux, Hyperlipidemia, Hypertension, Thyroid Disorder Additional Family Medical History / Comment(s): Quad CABG, cardiac stents, toes ampuated. Father History Unknown: Yes Family Medical History: No Reported History General Exam - General Exam Comments Initial Comments: Physical Exam GENERAL: Patient is well-developed and well-nourished. Patient is nontoxic and well- hydrated and is in no distress. HENT: Normocephalic, Atraumatic. EYES: PERRL, EOMI No papilledema PULMONARY: Unlabored respirations. No audible rales rhonchi or wheezing was noted. CARDIOVASCULAR: There is a regular rate and rhythm without any murmurs gallops or rubs. ABDOMEN: Soft and nontender with normal bowel sounds. SKIN: Skin is clear with no lesions or rashes and otherwise unremarkable. : Deferred NEUROLOGIC: Patient is alert and oriented x3. Moving all extremities spontaneously MUSCULOSKELETAL: Normal extremities with adequate strength and full range of motion. No lower extremity swelling or edema. No calf tenderness. PSYCHIATRIC: Normal psychiatric evaluation. Limitations: no limitations Course Vital Signs 01/09/19 01/10/19 21:03 00:06 Temperature 98.1 F 97.8 F Pulse Rate 124 H 114 H Respiratory 18 18 Rate Blood Pressure 140/102 131/96 O2 Sat by Pulse 99 98 Oximetry Medical Decision Making - Medical Decision Making Patient was seen and evaluated, history obtained from patient Patient with her typical migraine symptoms Patient was treated with fluids Benadryl Dilaudid and Zofran which is her typical cocktail she has multiple ALLERGIES to other medications including steroids and Toradol Patient was evaluated after first dose of medications reported her pain is improved from a 10 out of 10 to an 8 out of 10. Patient requesting repeat dose. A repeat dose of half milligram of Dilaudid was given and patient was reevaluated and is asking for discharge home and she is feeling much better wants to go home to sleep. Disposition Clinical Impression: Migraine Disposition: HOME SELF-CARE Condition: Stable Instructions (If sedation given, give patient instructions): Acute Headache (ED) Is patient prescribed a controlled substance at d/c from ED?: No Referrals: José Reece MD [Primary Care Provider] - 1-2 days
[2019-01-10 00:07] VITALS: BP 131/96; PULSE 114; TEMP 97.8
== END 2019-01-10 00:30 | disposition home or self-care (01) ==
LOC: EC 20:45
DX: G43.909 Migraine, unspecified, not intractable, without status migrainosus (principal); E78.5 Hyperlipidemia, unspecified; G40.909 Epilepsy, unspecified, not intractable, without status epilepticus; G89.29 Other chronic pain; M54.9 Dorsalgia, unspecified; F17.200 Nicotine dependence, unspecified, uncomplicated; Z79.899 Other long term (current) drug therapy; Z88.8 Allergy status to other drugs, medicaments and biological substances; Z91.040 Latex allergy status; Z88.6 Allergy status to analgesic agent; Z88.0 Allergy status to penicillin; Z88.1 Allergy status to other antibiotic agents; Z88.2 Allergy status to sulfonamides
CPT/HCPCS: 99283; 96374; 96375 ×2; 96376; 96361; J1200; J2405; J1642; J1170 ×2

== ENCOUNTER 2019-01-19 22:51 | Emergency (ER) | payer OTHER ==
[2019-01-19] MEDS ORDERED: diphenhydrAMINE 50 MG/ML 1 ML VIAL ONE (23:30)
[2019-01-19] MEDS ORDERED: SODIUM CHLORIDE 0.9% 1,000 ML BAG ONE (23:30)
[2019-01-19] MEDS ORDERED: ONDANSETRON 4 MG/2 ML VIAL ONE (23:30)
[2019-01-19] MEDS ORDERED: HYDROmorphone 2 MG/ML 1 ML SYRINGE ONE ×2 (23:30)
== END 2019-01-20 01:35 | disposition home or self-care (01) ==
LOC: EC 22:51
DX: G43.909 Migraine, unspecified, not intractable, without status migrainosus (principal); F32.9 Major depressive disorder, single episode, unspecified; F17.200 Nicotine dependence, unspecified, uncomplicated
CPT/HCPCS: 99283; 96374; 96375 ×2; 96376; 96361; J1170; J1200; J2405

== ENCOUNTER 2019-02-17 15:18 | Emergency (ER) | payer OTHER ==
[2019-02-17 15:35] VITALS: BP 157/99; PULSE 112; RESP 18; TEMP 98.3
[2019-02-17] MEDS ORDERED: SODIUM CHLORIDE 0.9% 1,000 ML IV STA (16:10)
[2019-02-17] MEDS ORDERED: HYDROmorphone 1 MG/ML 1 ML SYRINGE IVP STA ×2 (16:10→17:32)
[2019-02-17] MEDS ORDERED: diphenhydrAMINE 50 MG/ML 1 ML VIAL IVP STA (16:10)
[2019-02-17] MEDS ORDERED: ONDANSETRON 4 MG/2 ML VIAL IVP STA ×2 (16:10→18:44)
--- NOTE | 2019-02-17 16:30 | ED ---
Headache HPI - General Chief Complaint: Headache Stated Complaint: MIGRAINE Time Seen by Provider: 02/17/19 15:50 Mode of arrival: ambulatory Limitations: no limitations - History of Present Illness Initial Comments: Patient is a 48-year-old female presenting to emergency Department with complaints of a migraine 3 days. Patient states she has history of migraines and this feels very similar. Patient states she has tried her Fioricet as well as [place] she has for her back without relief of her symptoms. Patient admits to photophobia as well as nausea. Patient denies any fever, chills, vomiting, diarrhea. Patient denies changes in her vision, numbness and tingling to her extremities. Patient states she has been trying to figure out what is causing her migraines. Patient states she has not had caffeine approximately 3 weeks and significantly cut down her cigarettes for one pack a day to approximately 2 cigarettes a day. Patient has no other complaints at this time. Upon arrival to the ER, patient was slightly tachycardia, rest of vital signs normal. - Related Data Home Medications Medication Instructions Recorded Confirmed Atorvastatin [Lipitor] 40 mg PO HS 04/02/17 01/09/19 Lacosamide [Vimpat] 100 mg PO BID 06/04/17 01/09/19 HYDROcodone/APAP 7.5-325MG [[place] 1 tab PO TID PRN 07/06/17 01/09/19 7.5-325] Cetirizine HCl [Zyrtec] 10 mg PO DAILY 10/26/18 01/09/19 amLODIPine [Norvasc] 5 mg PO DAILY 10/26/18 01/09/19 Ergocalciferol [Vitamin D2] 50,000 unit PO WE 01/09/19 01/09/19 Allergies Allergy/AdvReac Type Severity Reaction Status Date / Time dihydroergotamine Allergy Unknown Unknown Verified 02/17/19 15:35 [From Migranal] gabapentin [From Neurontin] Allergy Itching/Swe Verified 02/17/19 15:35 lling latex Allergy Anaphylaxis Verified 02/17/19 15:35 naproxen [From Naprosyn] Allergy Anaphylaxis Verified 02/17/19 15:35 Penicillins Allergy Anaphylaxis Verified 02/17/19 15:35 prednisone Allergy Swelling Verified 02/17/19 15:35 quetiapine fumarate Allergy Itching, Verified 02/17/19 15:35 [From Seroquel] leg cramps rofecoxib [From Vioxx] Allergy Itching, Verified 02/17/19 15:35 leg cramps terfenadine [From Seldane] Allergy Rash/Hives Verified 02/17/19 15:35 tramadol Allergy Nausea & Verified 02/17/19 15:35 Vomiting/LEG CRAMPS/HEART FLUTTERS calcium carbonate [From DHEA] AdvReac Chest Pain Verified 02/17/19 15:35 calcium phosphate,dibasic AdvReac Chest Pain Verified 02/17/19 15:35 [From DHEA] clindamycin AdvReac muscle Verified 02/17/19 15:35 cramps clonidine AdvReac fast Verified 02/17/19 15:35 heartbeat, migraine dextromethorphan HBr AdvReac face/neck Verified 02/17/19 15:35 [From NyQuil] flushing diazepam [From Valium] AdvReac Nausea & Verified 02/17/19 15:35 Vomiting divalproex sodium AdvReac Nausea & Verified 02/17/19 15:35 [From Depakote] Vomiting doxylamine [From NyQuil] AdvReac face "beet Verified 02/17/19 15:35 red", elevated temp. ibuprofen [From Motrin] AdvReac abdominal Verified 02/17/19 15:35 & muscle cramps indomethacin [From Indocin] AdvReac Abdominal Verified 02/17/19 15:35 Pain,N/V ketorolac tromethamine AdvReac "built up Verified 02/17/19 15:35 [From Toradol] in system", had to be given something to reverse lorazepam [From Ativan] AdvReac Nausea & Verified 02/17/19 15:35 Vomiting metoclopramide HCl AdvReac muscle Verified 02/17/19 15:35 [From Reglan] cramps nortriptyline [From Pamelor] AdvReac Chest Pain Verified 02/17/19 15:35 prasterone (DHEA) [From DHEA] AdvReac Chest Pain Verified 02/17/19 15:35 prochlorperazine AdvReac leg Verified 02/17/19 15:35 [From Compazine] cramping propranolol AdvReac Chest Pain Verified 02/17/19 15:35 pseudoephedrine HCl AdvReac face "beet Verified 02/17/19 15:35 [From NyQuil] red", elevated temp. quetiapine [From Seroquel] AdvReac leg Verified 02/17/19 15:35 cramping sumatriptan [From Imitrex] AdvReac migrane Verified 02/17/19 15:35 sumatriptan succinate AdvReac migrane Verified 02/17/19 15:35 [From Imitrex] topiramate [From Topamax] AdvReac "built up Verified 02/17/19 15:35 in system", had to be given something to reverse trazodone AdvReac "built up Verified 02/17/19 15:35 in system", had to be given something to reverse zolpidem tartrate AdvReac "Became Verified 02/17/19 15:35 [From Ambien] violent with no memory" zonisamide [From Zonegran] AdvReac inability Verified 02/17/19 15:35 to eat artificial sweetener AdvReac SEVERE Uncoded 02/17/19 15:35 MIGRAINE HEADACHE Review of Systems ROS Statement: Those systems with pertinent positive or pertinent negative responses have been documented in the HPI. ROS Other: All systems not noted in ROS Statement are negative. Past Medical History Past Medical History: Hyperlipidemia, Seizure Disorder Additional Past Medical History / Comment(s): Migraines, viral meningitis x3 as a child, 1995, 2000, chronic back pain, nerve blocks 08/2016 and 12/2016. Last seizure 07/22/2017, "ABSENTEE SEIZURES. HX TACHYCARDIA, GB/CIPD History of Any Multi-Drug Resistant Organisms: None Reported Past Surgical History: Appendectomy, Section, Cholecystectomy, Hernia Repair, Hysterectomy, Orthopedic Surgery, Tonsillectomy, Tubal Ligation Additional Past Surgical History / Comment(s): Hiatal Hernia, umbilical hernia repair, left rotator cuff repair, bilateral knee scopes, pain clinic procedures- occipital nerve block on 01/05/2017. abd exploratory sx(endometreosis), 3 abd scopes 1981, 1989, 1991), lumbar puncture. EGD. nerve biopsy, Past Anesthesia/Blood Transfusion Reactions: No Reported Reaction Additional Past Anesthesia/Blood Transfusion Reaction / Comment(s): Claustrophobic Past Psychological History: Anxiety, Bipolar, Panic Disorder Smoking Status: Current every day smoker Past Alcohol Use History: None Reported Past Drug Use History: None Reported - Past Family History Mother Family Medical History: Cancer, Dementia, Diabetes Mellitus, GERD/Reflux, Hyperlipidemia, Hypertension, Thyroid Disorder Additional Family Medical History / Comment(s): Quad CABG, cardiac stents, toes ampuated. Father History Unknown: Yes Family Medical History: No Reported History General Exam - General Exam Comments Initial Comments: GENERAL: Patient sitting with sunglasses and swanson over her head in a dark room. Patient appears uncomfortable secondary to headache. HEAD: Atraumatic, normocephalic. EYES: Pupils equal round and reactive to light, extraocular movements intact, sclera anicteric, conjunctiva are normal. ENT: TMs normal, nares patent, oropharynx clear without exudates. Moist mucous membranes. NECK: Normal range of motion, supple without lymphadenopathy or JVD. LUNGS: Breath sounds clear to auscultation bilaterally and equal. No wheezes rales or rhonchi. HEART: Regular rate and rhythm without murmurs, rubs or gallops. ABDOMEN: Soft, nontender, normoactive bowel sounds. No guarding, no rebound. No masses appreciated. EXTREMITIES: Normal range of motion, no pitting or edema. No clubbing or cyanosis. NEUROLOGICAL: Cranial nerves II through XII grossly intact. Normal speech, normal gait. PSYCH: Normal mood, normal affect. SKIN: Warm, Dry, normal turgor, no rashes or lesions noted. Limitations: no limitations Course Vital Signs 02/17/19 15:33 Temperature 98.3 F Pulse Rate 112 H Respiratory 18 Rate Blood Pressure 157/99 O2 Sat by Pulse 97 Oximetry Medical Decision Making - Medical Decision Making Patient is a 48-year-old female presenting with a migraine 3 days. Patient has long history of migraines and is often seen in the ER. Patient's exam is unremarkable and consistent with her regular migraines. There are no alarm symptoms. Patient's vital signs are stable. Patient is given fluids, Zofran, and pain meds, Benadryl. Patient reports some improvement in her symptoms. Discussed with patient and she can not receive any more pain medications. Patient is stable for discharge at this time and she is in agreement with this plan of care. Return parameters were discussed with the patient she verbalized understanding. Patient states she will follow-up with her neurologist. Case discussed with Dr. Bergeron. Disposition Clinical Impression: Migraine Disposition: HOME SELF-CARE Condition: Stable Instructions (If sedation given, give patient instructions): Acute Headache (ED) Additional Instructions: Please return to the Emergency Department if symptoms worsen or any other concerns. Follow-up with your neurologist if symptoms persist. Is patient prescribed a controlled substance at d/c from ED?: No Referrals: José Reece MD [Primary Care Provider] - 1-2 days
== END 2019-02-17 19:09 | disposition home or self-care (01) ==
LOC: EC 15:18
DX: G43.909 Migraine, unspecified, not intractable, without status migrainosus (principal); E78.5 Hyperlipidemia, unspecified; G40.909 Epilepsy, unspecified, not intractable, without status epilepticus; F17.200 Nicotine dependence, unspecified, uncomplicated; Z79.899 Other long term (current) drug therapy; Z88.8 Allergy status to other drugs, medicaments and biological substances; Z91.040 Latex allergy status; Z88.6 Allergy status to analgesic agent; Z88.0 Allergy status to penicillin; Z88.5 Allergy status to narcotic agent; Z88.1 Allergy status to other antibiotic agents; Z91.02 Food additives allergy status
CPT/HCPCS: 99283; 96374; 96375 ×2; 96376 ×2; 96361 ×2; J1200; J2405; J1170

== ENCOUNTER 2019-03-16 21:29 | Emergency (ER) | payer OTHER ==
[2019-03-16 21:53] VITALS: RESP 18
[2019-03-16 22:43] LABS: Basophils % (A) 0 %; Eosinophils # (A) 0.2 k/uL (0-0.7); Eosinophils % (A) 1 %; HCT 43.9 % (34.0-46.0); HGB 14.6 gm/dL (11.4-16.0); Lymphocytes # (A) 2.6 k/uL (1.0-4.8); Lymphocytes % (A) 23 %; MCH 31.6 pg (25.0-35.0); MCHC 33.2 g/dL (31.0-37.0); MCV 95.3 fL (80.0-100.0); Mean Platelet Volume 8.5; Monocytes # (A) 0.5 k/uL (0-1.0); Monocytes % (A) 5 %; Neutrophils # (A) 7.8 k/uL (1.3-7.7); Neutrophils % (A) 69 %; Platelet Count 286 k/uL (150-450); RBC 4.61 m/uL (3.80-5.40); RDW 13.2 % (11.5-15.5); WBC 11.3 k/uL (3.8-10.6)
[2019-03-16 22:49] LABS: ALT 63 U/L (9-52); AST 33 U/L (14-36); African American GFR (CKD) >90 (>60 ml/min/1.73 sqM); Albumin 4.5 g/dL (3.5-5.0); Alkaline Phosphatase 178 U/L (38-126); Anion Gap 9 mmol/L; Blood Urea Nitrogen 9 mg/dL (7-17); Calcium 9.3 mg/dL (8.4-10.2); Carbon Dioxide 25 mmol/L (22-30); Chloride 107 mmol/L (98-107); Glucose 101 mg/dL (74-99); Non-African American GFR(CKD) 80 (>60 ml/min/1.73 sqM); Sodium 141 mmol/L (137-145); Total Bilirubin 0.6 mg/dL (0.2-1.3); Total Protein 7.5 g/dL (6.3-8.2)
[2019-03-16 22:50] LABS: INR 0.9 (<1.2); Partial Thromboplastin Time 23.3 sec (22.0-30.0); Prothrombin Time 9.4 sec (9.0-12.0)
[2019-03-16 22:50] LABS: Appearance,Urine Cloudy (Clear); Bacteria,Urine Rare /hpf; Bilirubin,Urine Negative (Negative); Blood,Urine Small (Negative); Color,Urine Yellow; Glucose,Urine (UA) Negative (Negative); Ketones,Urine Negative (Negative); Leukocyte Esterase,Urine Trace (Negative); Mucus,Urine Many /hpf; Nitrite,Urine Negative (Negative); PH, Urine 5.5 (5.0-8.0); Protein,Urine Trace (Negative); RBC,Urine 6 /hpf (0-5); Specific Gravity,Urine 1.017 (1.001-1.035); Squamous Epithelial Cell,Urine 7 /hpf (0-4); Urobilinogen,Urine <2.0 mg/dL (<2.0); WBC,Urine 2 /hpf (0-5)
[2019-03-16] MEDS ORDERED: diphenhydrAMINE 50 MG/ML 1 ML VIAL IVP STA (23:27)
[2019-03-16] MEDS ORDERED: SODIUM CHLORIDE 0.9% 1,000 ML IV STA (23:27)
[2019-03-16] MEDS ORDERED: SODIUM CHLORIDE 0.9% 500 ML 500 ML IV STA (23:27)
[2019-03-16] MEDS ORDERED: ONDANSETRON 4 MG/2 ML VIAL IVP STA (23:28)
[2019-03-16] MEDS ORDERED: HYDROmorphone 1 MG/ML 1 ML SYRINGE IVP STA (23:28)
--- NOTE | 2019-03-16 23:33 | ED ---
Dizziness HPI - General Source: patient, RN notes reviewed Mode of arrival: ambulatory Limitations: no limitations - History of Present Illness MD Complaint: dizziness, near syncope <Greg Chand - Last Filed: 03/17/19 00:51> <Wandy Wooten - Last Filed: 03/17/19 05:01> - General Chief Complaint: Syncope Stated Complaint: Migraine, syncope Time Seen by Provider: 03/16/19 23:13 - History of Present Illness Initial Comments: This is a 49-year-old female history migraine headaches and states she had a migraine for past 4 days she states it was so bad today she almost passed out twice. She denies any palpitations fevers chills as is some nausea she states she does not have the medication she generally takes with Fioricet. She states she try to take [place] did not help (Greg Chand) - Related Data Home Medications Medication Instructions Recorded Confirmed Atorvastatin [Lipitor] 40 mg PO HS 04/02/17 01/09/19 Lacosamide [Vimpat] 100 mg PO BID 06/04/17 01/09/19 HYDROcodone/APAP 7.5-325MG [[place] 1 tab PO TID PRN 07/06/17 01/09/19 7.5-325] Cetirizine HCl [Zyrtec] 10 mg PO DAILY 10/26/18 01/09/19 amLODIPine [Norvasc] 5 mg PO DAILY 10/26/18 01/09/19 Ergocalciferol [Vitamin D2] 50,000 unit PO WE 01/09/19 01/09/19 Allergies Allergy/AdvReac Type Severity Reaction Status Date / Time dihydroergotamine Allergy Unknown Unknown Verified 03/16/19 21:53 [From Migranal] gabapentin [From Neurontin] Allergy Itching/Swe Verified 03/16/19 21:53 lling latex Allergy Anaphylaxis Verified 03/16/19 21:53 naproxen [From Naprosyn] Allergy Anaphylaxis Verified 03/16/19 21:53 Penicillins Allergy Anaphylaxis Verified 03/16/19 21:53 prednisone Allergy Swelling Verified 03/16/19 21:53 quetiapine fumarate Allergy Itching, Verified 03/16/19 21:53 [From Seroquel] leg cramps rofecoxib [From Vioxx] Allergy Itching, Verified 03/16/19 21:53 leg cramps terfenadine [From Seldane] Allergy Rash/Hives Verified 03/16/19 21:53 tramadol Allergy Nausea & Verified 03/16/19 21:53 Vomiting/LEG CRAMPS/HEART FLUTTERS calcium carbonate [From DHEA] AdvReac Chest Pain Verified 03/16/19 21:53 calcium phosphate,dibasic AdvReac Chest Pain Verified 03/16/19 21:53 [From DHEA] clindamycin AdvReac muscle Verified 03/16/19 21:53 cramps clonidine AdvReac fast Verified 03/16/19 21:53 heartbeat, migraine dextromethorphan HBr AdvReac face/neck Verified 03/16/19 21:53 [From NyQuil] flushing diazepam [From Valium] AdvReac Nausea & Verified 03/16/19 21:53 Vomiting divalproex sodium AdvReac Nausea & Verified 03/16/19 21:53 [From Depakote] Vomiting doxylamine [From NyQuil] AdvReac face "beet Verified 03/16/19 21:53 red", elevated temp. ibuprofen [From Motrin] AdvReac abdominal Verified 03/16/19 21:53 & muscle cramps indomethacin [From Indocin] AdvReac Abdominal Verified 03/16/19 21:53 Pain,N/V ketorolac tromethamine AdvReac "built up Verified 03/16/19 21:53 [From Toradol] in system", had to be given something to reverse lorazepam [From Ativan] AdvReac Nausea & Verified 03/16/19 21:53 Vomiting metoclopramide HCl AdvReac muscle Verified 03/16/19 21:53 [From Reglan] cramps nortriptyline [From Pamelor] AdvReac Chest Pain Verified 03/16/19 21:53 prasterone (DHEA) [From DHEA] AdvReac Chest Pain Verified 03/16/19 21:53 prochlorperazine AdvReac leg Verified 03/16/19 21:53 [From Compazine] cramping propranolol AdvReac Chest Pain Verified 03/16/19 21:53 pseudoephedrine HCl AdvReac face "beet Verified 03/16/19 21:53 [From NyQuil] red", elevated temp. quetiapine [From Seroquel] AdvReac leg Verified 03/16/19 21:53 cramping sumatriptan [From Imitrex] AdvReac migrane Verified 03/16/19 21:53 sumatriptan succinate AdvReac migrane Verified 03/16/19 21:53 [From Imitrex] topiramate [From Topamax] AdvReac "built up Verified 03/16/19 21:53 in system", had to be given something to reverse trazodone AdvReac "built up Verified 03/16/19 21:53 in system", had to be given something to reverse zolpidem tartrate AdvReac "Became Verified 03/16/19 21:53 [From Ambien] violent with no memory" zonisamide [From Zonegran] AdvReac inability Verified 03/16/19 21:53 to eat artificial sweetener AdvReac SEVERE Uncoded 03/16/19 21:53 MIGRAINE HEADACHE Review of Systems ROS Other: All systems not noted in ROS Statement are negative. <Greg Chand - Last Filed: 03/17/19 00:51> ROS Other: All systems not noted in ROS Statement are negative. <Wandy Wooten - Last Filed: 03/17/19 05:01> ROS Statement: Those systems with pertinent positive or pertinent negative responses have been documented in the HPI. Past Medical History Past Medical History: Hyperlipidemia, Seizure Disorder Additional Past Medical History / Comment(s): Migraines, viral meningitis x3 as a child, 1995, 2000, chronic back pain, nerve blocks 08/2016 and 12/2016. Last seizure 07/22/2017, "ABSENTEE SEIZURES. HX TACHYCARDIA, GB/CIPD History of Any Multi-Drug Resistant Organisms: None Reported Past Surgical History: Appendectomy, Section, Cholecystectomy, Hernia Repair, Hysterectomy, Orthopedic Surgery, Tonsillectomy, Tubal Ligation Additional Past Surgical History / Comment(s): Hiatal Hernia, umbilical hernia repair, left rotator cuff repair, bilateral knee scopes, pain clinic procedures- occipital nerve block on 01/05/2017. abd exploratory sx(endometreosis), 3 abd scopes 1981, 1989, 1991), lumbar puncture. EGD. nerve biopsy, Past Anesthesia/Blood Transfusion Reactions: No Reported Reaction Additional Past Anesthesia/Blood Transfusion Reaction / Comment(s): Claustrophobic Past Psychological History: Anxiety, Bipolar, Panic Disorder Smoking Status: Current every day smoker Past Alcohol Use History: None Reported Past Drug Use History: None Reported - Past Family History Mother Family Medical History: Cancer, Dementia, Diabetes Mellitus, GERD/Reflux, Hyperlipidemia, Hypertension, Thyroid Disorder Additional Family Medical History / Comment(s): Quad CABG, cardiac stents, toes ampuated. Father History Unknown: Yes Family Medical History: No Reported History <Greg Chand - Last Filed: 03/17/19 00:51> General Exam Limitations: no limitations General appearance: alert, anxious, in distress Head exam: Present: atraumatic, normocephalic, normal inspection Eye exam: Present: normal appearance, PERRL, EOMI. Absent: scleral icterus, conjunctival injection, periorbital swelling ENT exam: Present: normal exam, mucous membranes moist Neck exam: Present: normal inspection. Absent: tenderness, meningismus, lymphadenopathy Respiratory exam: Present: normal lung sounds bilaterally. Absent: respiratory distress, wheezes, rales, rhonchi, stridor Cardiovascular Exam: Present: normal rhythm, tachycardia, normal heart sounds. Absent: systolic murmur, diastolic murmur, rubs, gallop, clicks GI/Abdominal exam: Present: soft, normal bowel sounds. Absent: distended, tenderness, guarding, rebound, rigid Extremities exam: Present: normal inspection, full ROM, normal capillary refill. Absent: tenderness, pedal edema, joint swelling, calf tenderness Back exam: Present: normal inspection Neurological exam: Present: alert, oriented X3, CN II-XII intact Psychiatric exam: Present: normal affect, normal mood Skin exam: Present: warm, dry, intact, normal color. Absent: rash <Greg Chand - Last Filed: 03/17/19 00:51> - General Exam Comments Initial Comments: This is a well-developed well-nourished awake alert oriented x 3 female (MannieGreg) Course <Greg Chand - Last Filed: 03/17/19 00:51> Vital Signs 03/16/19 03/17/19 03/17/19 21:50 02:00 03:35 Temperature 98.7 F Pulse Rate 122 H 103 H 110 H Respiratory 18 18 18 Rate Blood Pressure 158/112 154/100 134/94 O2 Sat by Pulse 97 97 96 Oximetry 03/17/19 03/17/19 04:00 04:50 Temperature Pulse Rate 95 115 H Respiratory 18 18 Rate Blood Pressure 138/87 116/86 O2 Sat by Pulse 97 96 Oximetry - Reevaluation(s) Reevaluation #1: 03/17/19 00:51 Patient states the pain came down from a 10/10 to a 7/10 she will be redosed with her medication. She has stated this, patient has worked in the past (Greg Chand) Reevaluation #2: 03/17/19 00:52 The patient's care was endorsed to Dr. Wooten at shift change (Greg Chand) EKG Findings - EKG Results: EKG: interpreted by ERMYeimy, sinus rhythm (Sinus tachycardia rate of 105. Interval 146 QRS duration 72 daily since QTC 334/441 moderate voltage criteria for LVH no acute ST-T wave changes) <Greg Chand - Last Filed: 03/17/19 00:51> Procedures - Nerve Block Consent Obtained: verbal consent Local Anesthetic Used: Lidocaine 2% Amount of anesthesia used: 1 Side: left, right Nerve Blocks: other (Sphenopalatine) Procedure Successful: Yes Complications: none Patient Tolerated Procedure: well <Wandy Wooten - Last Filed: 03/17/19 05:01> Medical Decision Making - Lab Data Result diagrams: 03/16/19 22:30 03/16/19 22:30 <Greg Chand - Last Filed: 03/17/19 00:51> - Lab Data Result diagrams: 03/16/19 22:30 03/16/19 22:30 <Wandy Wooten - Last Filed: 03/17/19 05:01> - Medical Decision Making care was signed out to me at shift change. Sara is a 49-year-old female with chronic pain and multiple ALLERGIES who presents the ER for recurrent headache. Patient presents frequently for these headaches. Headaches can only be treated with Dilaudid due to her ALLERGIES. He has received 2 doses of Zofran 2 doses of Benadryl and 2 doses of Dilaudid prior to sign out. CT head was pending and was read with no acute findings. Partial empty sella which could be due to previous intracranial hypertension. I reevaluated the patient who states she used to be treated with intranasal opiate medication for her headaches. I will attempt sphenopalentine nerve block. Patient was reevaluated 15 minutes after sphenopalatine block was initiated. Patient reported she was initially suffering from 2 types of headache and one is completely resolve the other has decreased from a 10 out of 10 to a 7 out of 10 and is now bearable. Patient comfortable with plan for discharge home, her daughter is currently admitted to this hospital for an illness and she would like to be at her bedside. (Wandy Wooten) - Lab Data Lab Results 03/16/19 03/16/19 03/16/19 Range/Units 22:30 22:30 22:30 WBC 11.3 H (3.8-10.6) k/uL RBC 4.61 (3.80-5.40) m/uL Hgb 14.6 (11.4-16.0) gm/dL Hct 43.9 (34.0-46.0) % MCV 95.3 (80.0-100.0) fL MCH 31.6 (25.0-35.0) pg MCHC 33.2 (31.0-37.0) g/dL RDW 13.2 (11.5-15.5) % Plt Count 286 (150-450) k/uL Neutrophils % 69 % Lymphocytes % 23 % Monocytes % 5 % Eosinophils % 1 % Basophils % 0 % Neutrophils # 7.8 H (1.3-7.7) k/uL Lymphocytes # 2.6 (1.0-4.8) k/uL Monocytes # 0.5 (0-1.0) k/uL Eosinophils # 0.2 (0-0.7) k/uL Basophils # 0.0 (0-0.2) k/uL PT 9.4 (9.0-12.0) sec INR 0.9 (<1.2) APTT 23.3 (22.0-30.0) sec Sodium 141 (137-145) mmol/L Potassium 4.0 (3.5-5.1) mmol/L Chloride 107 (98-107) mmol/L Carbon Dioxide 25 (22-30) mmol/L Anion Gap 9 mmol/L BUN 9 (7-17) mg/dL Creatinine 0.87 (0.52-1.04) mg/dL Est GFR (CKD-EPI)AfAm >90 (>60 ml/min/1.73 sqM) Est GFR (CKD-EPI)NonAf 80 (>60 ml/min/1.73 sqM) Glucose 101 H (74-99) mg/dL Calcium 9.3 (8.4-10.2) mg/dL Magnesium 2.2 (1.6-2.3) mg/dL Total Bilirubin 0.6 (0.2-1.3) mg/dL AST 33 (14-36) U/L ALT 63 H (9-52) U/L Alkaline Phosphatase 178 H (38-126) U/L Creatine Kinase 61 (30-135) U/L Troponin I (0.000-0.034) ng/mL Total Protein 7.5 (6.3-8.2) g/dL Albumin 4.5 (3.5-5.0) g/dL Urine Color Urine Appearance (Clear) Urine pH (5.0-8.0) Ur Specific [place] (1.001-1.035) Urine Protein (Negative) Urine Glucose (UA) (Negative) Urine Ketones (Negative) Urine Blood (Negative) Urine Nitrite (Negative) Urine Bilirubin (Negative) Urine Urobilinogen (<2.0) mg/dL Ur Leukocyte Esterase (Negative) Urine RBC (0-5) /hpf Urine WBC (0-5) /hpf Ur Squamous Epith Cells (0-4) /hpf Urine Bacteria (None) /hpf Urine Mucus (None) /hpf 03/16/19 03/16/19 Range/Units 22:30 22:44 WBC (3.8-10.6) k/uL RBC (3.80-5.40) m/uL Hgb (11.4-16.0) gm/dL Hct (34.0-46.0) % MCV (80.0-100.0) fL MCH (25.0-35.0) pg MCHC (31.0-37.0) g/dL RDW (11.5-15.5) % Plt Count (150-450) k/uL Neutrophils % % Lymphocytes % % Monocytes % % Eosinophils % % Basophils % % Neutrophils # (1.3-7.7) k/uL Lymphocytes # (1.0-4.8) k/uL Monocytes # (0-1.0) k/uL Eosinophils # (0-0.7) k/uL Basophils # (0-0.2) k/uL PT (9.0-12.0) sec INR (<1.2) APTT (22.0-30.0) sec Sodium (137-145) mmol/L Potassium (3.5-5.1) mmol/L Chloride (98-107) mmol/L Carbon Dioxide (22-30) mmol/L Anion Gap mmol/L BUN (7-17) mg/dL Creatinine (0.52-1.04) mg/dL Est GFR (CKD-EPI)AfAm (>60 ml/min/1.73 sqM) Est GFR (CKD-EPI)NonAf (>60 ml/min/1.73 sqM) Glucose (74-99) mg/dL Calcium (8.4-10.2) mg/dL Magnesium (1.6-2.3) mg/dL Total Bilirubin (0.2-1.3) mg/dL AST (14-36) U/L ALT (9-52) U/L Alkaline Phosphatase (38-126) U/L Creatine Kinase (30-135) U/L Troponin I <0.012 (0.000-0.034) ng/mL Total Protein (6.3-8.2) g/dL Albumin (3.5-5.0) g/dL Urine Color Yellow Urine Appearance Cloudy H (Clear) Urine pH 5.5 (5.0-8.0) Ur Specific [place] 1.017 (1.001-1.035) Urine Protein Trace H (Negative) Urine Glucose (UA) Negative (Negative) Urine Ketones Negative (Negative) Urine Blood Small H (Negative) Urine Nitrite Negative (Negative) Urine Bilirubin Negative (Negative) Urine Urobilinogen <2.0 (<2.0) mg/dL Ur Leukocyte Esterase Trace H (Negative) Urine RBC 6 H (0-5) /hpf Urine WBC 2 (0-5) /hpf Ur Squamous Epith Cells 7 H (0-4) /hpf Urine Bacteria Rare H (None) /hpf Urine Mucus Many H (None) /hpf Disposition <Greg Chand - Last Filed: 03/17/19 00:51> Is patient prescribed a controlled substance at d/c from ED?: No <Wandy Wooten - Last Filed: 03/17/19 05:01> Clinical Impression: Chronic pain Disposition: HOME SELF-CARE Condition: Stable Instructions (If sedation given, give patient instructions): Migraine Headache (ED) Referrals: José Reece MD [Primary Care Provider] - 1-2 days
[2019-03-16 23:56] LABS: Creatine Kinase 61 U/L (30-135); Magnesium 2.2 mg/dL (1.6-2.3)
[2019-03-17] MEDS ORDERED: SODIUM CHLORIDE 0.9% 500 ML 500 ML IV STA (00:49)
[2019-03-17] MEDS ORDERED: HYDROmorphone 1 MG/ML 1 ML SYRINGE IVP STA (00:49)
[2019-03-17] MEDS ORDERED: diphenhydrAMINE 50 MG/ML 1 ML VIAL IVP STA (00:49)
[2019-03-17] MEDS ORDERED: ONDANSETRON 4 MG/2 ML VIAL IVP STA (00:49)
--- NOTE | 2019-03-17 02:41 | CT ---
EXAM: CT Head Without Intravenous Contrast CLINICAL HISTORY: ITS.REASON CT Reason: headache TECHNIQUE: Axial computed tomography images of the head/brain without intravenous contrast. CTDI is 49 mGy and DLP is 1111 mGy-cm. This CT exam was performed using one or more of the following dose reduction techniques: automated exposure control, adjustment of the mA and/or kV according to patient size, and/or use of iterative reconstruction technique. COMPARISON: 09/29/18 CT head FINDINGS: Brain: No hemorrhage or mass effect. Partially empty expanded sella. Ventricles: No hydrocephalus. Bones/joints: Unremarkable. Soft tissues: Unremarkable. Sinuses: Unremarkable. Mastoid air cells: Clear. IMPRESSION: No acute hemorrhage, hydrocephalus, or mass effect. Partially empty expanded sella, correlate with history of intracranial hypertension.
[2019-03-17] MEDS ORDERED: hydrALAZINE HCL 20 MG/ML 1 ML VIAL IVP STA (03:05)
[2019-03-17] MEDS ORDERED: LIDOCAINE 2% INJ 20 MG/ML (20 ML MDV) SQ STA (04:24)
[2019-03-17] MEDS ORDERED: fentaNYL (PF) 50 MCG/ML 2 ML AMP IM STA (04:25)
[2019-03-17 05:27] VITALS: BP 118/82; PULSE 110; TEMP 97.8
== END 2019-03-17 05:26 | disposition home or self-care (01) ==
LOC: EC 21:29
DX: G89.29 Other chronic pain (principal); R51 Headache; R55 Syncope and collapse; R11.0 Nausea; E78.5 Hyperlipidemia, unspecified; G40.909 Epilepsy, unspecified, not intractable, without status epilepticus; F17.200 Nicotine dependence, unspecified, uncomplicated; Z86.69 Personal history of other diseases of the nervous system and sense organs; Z79.899 Other long term (current) drug therapy; Z88.8 Allergy status to other drugs, medicaments and biological substances; Z91.040 Latex allergy status; Z88.6 Allergy status to analgesic agent; Z88.0 Allergy status to penicillin; Z88.5 Allergy status to narcotic agent; Z88.1 Allergy status to other antibiotic agents; Z91.018 Allergy to other foods; Z53.8 Procedure and treatment not carried out for other reasons
CPT/HCPCS: 36415; 93005; 80053; 82550; 83735; 84484; 85025; 85610; 85730; 81001; 70450; 99284; 64505; 96374; 96375 ×3; 96376 ×3; 96361 ×6; J2001; J0360; J1200 ×2; J2405 ×2; J1170 ×2

== ENCOUNTER 2019-04-12 16:04 | Emergency (ER) | payer OTHER ==
[2019-04-12 16:09] VITALS: TEMP 97.8
[2019-04-12] MEDS ORDERED: diphenhydrAMINE 50 MG/ML 1 ML VIAL IVP STA (16:45)
[2019-04-12] MEDS ORDERED: HYDROmorphone 1 MG/ML 1 ML SYRINGE IVP STA (16:50)
[2019-04-12] MEDS ORDERED: ONDANSETRON 4 MG/2 ML VIAL IVP STA (16:50)
[2019-04-12] MEDS ORDERED: SODIUM CHLORIDE 0.9% 1,000 ML IV STA (16:51)
--- NOTE | 2019-04-12 16:57 | ED ---
Headache HPI - General Chief Complaint: Headache Stated Complaint: headache Time Seen by Provider: 04/12/19 16:37 Mode of arrival: ambulatory Limitations: no limitations - History of Present Illness Initial Comments: Patient is a 49-year-old female with history of migraines presenting to emergency Department with a chief complaint of a headache. She states the most recent headache has been coming on and off for about 2 weeks. She reports a coming doorways. Reports the pain right now is about a 10 and throbbing. She also reports for sensitivity and nausea. Denies any visual disturbances. She states anytime the pain severity is leg that she comes to the ED for symptomatically control. She states normally fluids, Benadryl Zofran and Dilaudid worked well for her. Patient states that she is getting treated at the [facility] migraine clinic. - Related Data Home Medications Medication Instructions Recorded Confirmed Atorvastatin [Lipitor] 40 mg PO HS 04/02/17 04/12/19 Lacosamide [Vimpat] 100 mg PO BID 06/04/17 04/12/19 HYDROcodone/APAP 7.5-325MG [[place] 1 tab PO TID PRN 07/06/17 04/12/19 7.5-325] amLODIPine [Norvasc] 5 mg PO HS 10/26/18 04/12/19 Ergocalciferol [Vitamin D2] 50,000 unit PO WE 01/09/19 04/12/19 Allergies Allergy/AdvReac Type Severity Reaction Status Date / Time dihydroergotamine Allergy Unknown Unknown Verified 04/12/19 16:07 [From Migranal] gabapentin [From Neurontin] Allergy Itching/Swe Verified 04/12/19 16:07 lling latex Allergy Anaphylaxis Verified 04/12/19 16:07 naproxen [From Naprosyn] Allergy Anaphylaxis Verified 04/12/19 16:07 Penicillins Allergy Anaphylaxis Verified 04/12/19 16:07 prednisone Allergy Swelling Verified 04/12/19 16:07 quetiapine fumarate Allergy Itching, Verified 04/12/19 16:07 [From Seroquel] leg cramps rofecoxib [From Vioxx] Allergy Itching, Verified 04/12/19 16:07 leg cramps terfenadine [From Seldane] Allergy Rash/Hives Verified 04/12/19 16:07 tramadol Allergy Nausea & Verified 04/12/19 16:07 Vomiting/LEG CRAMPS/HEART FLUTTERS calcium carbonate [From DHEA] AdvReac Chest Pain Verified 04/12/19 16:07 calcium phosphate,dibasic AdvReac Chest Pain Verified 04/12/19 16:07 [From DHEA] clindamycin AdvReac muscle Verified 04/12/19 16:07 cramps clonidine AdvReac fast Verified 04/12/19 16:07 heartbeat, migraine dextromethorphan HBr AdvReac face/neck Verified 04/12/19 16:07 [From NyQuil] flushing diazepam [From Valium] AdvReac Nausea & Verified 04/12/19 16:07 Vomiting divalproex sodium AdvReac Nausea & Verified 04/12/19 16:07 [From Depakote] Vomiting doxylamine [From NyQuil] AdvReac face "beet Verified 04/12/19 16:07 red", elevated temp. ibuprofen [From Motrin] AdvReac abdominal Verified 04/12/19 16:07 & muscle cramps indomethacin [From Indocin] AdvReac Abdominal Verified 04/12/19 16:07 Pain,N/V ketorolac tromethamine AdvReac "built up Verified 04/12/19 16:07 [From Toradol] in system", had to be given something to reverse lorazepam [From Ativan] AdvReac Nausea & Verified 04/12/19 16:07 Vomiting metoclopramide HCl AdvReac muscle Verified 04/12/19 16:07 [From Reglan] cramps nortriptyline [From Pamelor] AdvReac Chest Pain Verified 04/12/19 16:07 prasterone (DHEA) [From DHEA] AdvReac Chest Pain Verified 04/12/19 16:07 prochlorperazine AdvReac leg Verified 04/12/19 16:07 [From Compazine] cramping propranolol AdvReac Chest Pain Verified 04/12/19 16:07 pseudoephedrine HCl AdvReac face "beet Verified 04/12/19 16:07 [From NyQuil] red", elevated temp. quetiapine [From Seroquel] AdvReac leg Verified 04/12/19 16:07 cramping sumatriptan [From Imitrex] AdvReac migrane Verified 04/12/19 16:07 sumatriptan succinate AdvReac migrane Verified 04/12/19 16:07 [From Imitrex] topiramate [From Topamax] AdvReac "built up Verified 04/12/19 16:07 in system", had to be given something to reverse trazodone AdvReac "built up Verified 04/12/19 16:07 in system", had to be given something to reverse zolpidem tartrate AdvReac "Became Verified 04/12/19 16:07 [From Ambien] violent with no memory" zonisamide [From Zonegran] AdvReac inability Verified 04/12/19 16:07 to eat artificial sweetener AdvReac SEVERE Uncoded 04/12/19 16:07 MIGRAINE HEADACHE Review of Systems ROS Statement: Those systems with pertinent positive or pertinent negative responses have been documented in the HPI. ROS Other: All systems not noted in ROS Statement are negative. Past Medical History Past Medical History: Hyperlipidemia, Seizure Disorder Additional Past Medical History / Comment(s): Migraines, viral meningitis x3 as a child, 1995, 2000, chronic back pain, nerve blocks 08/2016 and 12/2016. Last seizure 07/22/2017, "ABSENTEE SEIZURES. HX TACHYCARDIA, GB/CIPD History of Any Multi-Drug Resistant Organisms: None Reported Past Surgical History: Appendectomy, Section, Cholecystectomy, Hernia Repair, Hysterectomy, Orthopedic Surgery, Tonsillectomy, Tubal Ligation Additional Past Surgical History / Comment(s): Hiatal Hernia, umbilical hernia repair, left rotator cuff repair, bilateral knee scopes, pain clinic procedures- occipital nerve block on 01/05/2017. abd exploratory sx(endometreosis), 3 abd scopes 1981, 1989, 1991), lumbar puncture. EGD. nerve biopsy, Past Anesthesia/Blood Transfusion Reactions: No Reported Reaction Additional Past Anesthesia/Blood Transfusion Reaction / Comment(s): Claustrophobic Past Psychological History: Anxiety, Bipolar, Panic Disorder Smoking Status: Former smoker Past Alcohol Use History: None Reported Past Drug Use History: None Reported - Past Family History Mother Family Medical History: Cancer, Dementia, Diabetes Mellitus, GERD/Reflux, Hyperlipidemia, Hypertension, Thyroid Disorder Additional Family Medical History / Comment(s): Quad CABG, cardiac stents, toes ampuated. Father History Unknown: Yes Family Medical History: No Reported History General Exam Limitations: no limitations General appearance: alert, in no apparent distress Head exam: Present: atraumatic, normocephalic, normal inspection Eye exam: Present: normal appearance, PERRL, EOMI Pupils: Present: normal accommodation ENT exam: Present: normal exam, normal oropharynx, mucous membranes moist, TM's normal bilaterally, normal external ear exam Neck exam: Present: normal inspection, full ROM Respiratory exam: Present: normal lung sounds bilaterally Cardiovascular Exam: Present: regular rate, normal rhythm, normal heart sounds Extremities exam: Present: normal inspection, full ROM Back exam: Present: normal inspection, full ROM Neurological exam: Present: alert, oriented X3 Psychiatric exam: Present: normal affect, normal mood Skin exam: Present: warm, dry, intact, normal color Course Vital Signs 04/12/19 16:06 Temperature 97.8 F Pulse Rate 102 H Respiratory 20 Rate Blood Pressure 158/116 O2 Sat by Pulse 97 Oximetry Medical Decision Making - Medical Decision Making Patient is a 49-year-old female with history of migraines presenting to the emergency department with a chief complaint of a headache. This has been coming on and off for about 2 weeks. This is what her typical migraines feel like. She does have for sensitivity for sensitivity and nausea with multiple episodes of vomiting. No visual disturbances. This is a right-sided headache. This is not a thunderclap headache. Patient was given Dilaudid, Benadryl and Zofran. Reevaluation patient reports improvement in her symptoms and feels comfortable going home. Strict return parameters were thoroughly discussed with patient was understanding and agreeable. Case discussed with physician. Disposition Clinical Impression: Headache, chronic migraine without aura Disposition: HOME SELF-CARE Condition: Stable Instructions (If sedation given, give patient instructions): Acute Headache (ED) Additional Instructions: Follow-up with primary care. Please return to emergency department if symptoms worsen. Is patient prescribed a controlled substance at d/c from ED?: No Referrals: José Reece MD [Primary Care Provider] - 1-2 days Time of Disposition: 18:23
[2019-04-12] MEDS ORDERED: HYDROmorphone 1 MG/ML 1 ML SYRINGE IM STA (17:36)
[2019-04-12 19:44] VITALS: BP 127/75; PULSE 75; RESP 16
== END 2019-04-12 18:23 | disposition home or self-care (01) ==
LOC: EC 16:04
DX: G43.709 Chronic migraine without aura, not intractable, without status migrainosus (principal); E78.5 Hyperlipidemia, unspecified; G40.909 Epilepsy, unspecified, not intractable, without status epilepticus; G89.29 Other chronic pain; Z87.891 Personal history of nicotine dependence; Z88.0 Allergy status to penicillin; Z88.1 Allergy status to other antibiotic agents; Z88.2 Allergy status to sulfonamides; Z88.5 Allergy status to narcotic agent; Z88.6 Allergy status to analgesic agent; Z88.8 Allergy status to other drugs, medicaments and biological substances; Z91.02 Food additives allergy status; Z91.040 Latex allergy status; Z79.899 Other long term (current) drug therapy; Z53.8 Procedure and treatment not carried out for other reasons
CPT/HCPCS: 99283; 96374; 96375 ×2; 96372; J1200; J2405; J1170

== ENCOUNTER 2019-04-27 13:53 | Emergency (ER) | payer OTHER ==
[2019-04-27 14:07] VITALS: BP 180/113; PULSE 109; RESP 17; TEMP 98.3
[2019-04-27] MEDS ORDERED: SODIUM CHLORIDE 0.9% 500 ML 500 ML IV STA (14:25)
[2019-04-27] MEDS ORDERED: diphenhydrAMINE 50 MG/ML 1 ML VIAL IVP STA (14:25)
[2019-04-27] MEDS ORDERED: HYDROmorphone 1 MG/ML 1 ML SYRINGE IVP STA (14:25)
[2019-04-27] MEDS ORDERED: ONDANSETRON 4 MG/2 ML VIAL IVP STA (14:25)
--- NOTE | 2019-04-27 14:30 | ED ---
Headache HPI - General Chief Complaint: Headache Stated Complaint: headache Time Seen by Provider: 04/27/19 14:19 Mode of arrival: ambulatory Limitations: no limitations - History of Present Illness Initial Comments: Patient is a 43-year-old female with history of migraines presenting to the emergency department with a chief complaint of a headache. Patient reports this started several days ago and has been going on-and-off until today the pain has been constant. Patient reports this feels exactly like her typical headaches. Patient states she comes to the ED when she could not control the pain anymore. Patient reports a left-sided headache along with photosensitivity nausea or vomiting. Patient does report multiple episodes of vomiting. Patient states the pain is currently at 10 and throbbing. Patient states this was not a sudden onset of a headache he was more gradual initially. Patient states this is not the worst headache in her life. - Related Data Home Medications Medication Instructions Recorded Confirmed Atorvastatin [Lipitor] 40 mg PO HS 04/02/17 04/27/19 Lacosamide [Vimpat] 100 mg PO BID 06/04/17 04/27/19 HYDROcodone/APAP 7.5-325MG [[place] 1 tab PO TID PRN 07/06/17 04/27/19 7.5-325] amLODIPine [Norvasc] 5 mg PO DAILY 10/26/18 04/27/19 Ergocalciferol [Vitamin D2] 50,000 unit PO WE 01/09/19 04/27/19 Cyclobenzaprine [Flexeril] 5 mg PO DAILY PRN 04/27/19 04/27/19 Allergies Allergy/AdvReac Type Severity Reaction Status Date / Time dihydroergotamine Allergy Unknown Unknown Verified 04/27/19 15:24 [From Migranal] gabapentin [From Neurontin] Allergy Itching/Swe Verified 04/27/19 15:24 lling latex Allergy Anaphylaxis Verified 04/27/19 15:24 naproxen [From Naprosyn] Allergy Anaphylaxis Verified 04/27/19 15:24 Penicillins Allergy Anaphylaxis Verified 04/27/19 15:24 prednisone Allergy Swelling Verified 04/27/19 15:24 quetiapine fumarate Allergy Itching, Verified 04/27/19 15:24 [From Seroquel] leg cramps rofecoxib [From Vioxx] Allergy Itching, Verified 04/27/19 15:24 leg cramps terfenadine [From Seldane] Allergy Rash/Hives Verified 04/27/19 15:24 tramadol Allergy Nausea & Verified 04/27/19 15:24 Vomiting/LEG CRAMPS/HEART FLUTTERS calcium carbonate [From DHEA] AdvReac Chest Pain Verified 04/27/19 15:24 calcium phosphate,dibasic AdvReac Chest Pain Verified 04/27/19 15:24 [From DHEA] clindamycin AdvReac muscle Verified 04/27/19 15:24 cramps clonidine AdvReac fast Verified 04/27/19 15:24 heartbeat, migraine dextromethorphan HBr AdvReac face/neck Verified 04/27/19 15:24 [From NyQuil] flushing diazepam [From Valium] AdvReac Nausea & Verified 04/27/19 15:24 Vomiting divalproex sodium AdvReac Nausea & Verified 04/27/19 15:24 [From Depakote] Vomiting doxylamine [From NyQuil] AdvReac face "beet Verified 04/27/19 15:24 red", elevated temp. ibuprofen [From Motrin] AdvReac abdominal Verified 04/27/19 15:24 & muscle cramps indomethacin [From Indocin] AdvReac Abdominal Verified 04/27/19 15:24 Pain,N/V ketorolac tromethamine AdvReac "built up Verified 04/27/19 15:24 [From Toradol] in system", had to be given something to reverse lorazepam [From Ativan] AdvReac Nausea & Verified 04/27/19 15:24 Vomiting metoclopramide HCl AdvReac muscle Verified 04/27/19 15:24 [From Reglan] cramps nortriptyline [From Pamelor] AdvReac Chest Pain Verified 04/27/19 15:24 prasterone (DHEA) [From DHEA] AdvReac Chest Pain Verified 04/27/19 15:24 prochlorperazine AdvReac leg Verified 04/27/19 15:24 [From Compazine] cramping propranolol AdvReac Chest Pain Verified 04/27/19 15:24 pseudoephedrine HCl AdvReac face "beet Verified 04/27/19 15:24 [From NyQuil] red", elevated temp. quetiapine [From Seroquel] AdvReac leg Verified 04/27/19 15:24 cramping sumatriptan [From Imitrex] AdvReac migrane Verified 04/27/19 15:24 sumatriptan succinate AdvReac migrane Verified 04/27/19 15:24 [From Imitrex] topiramate [From Topamax] AdvReac "built up Verified 04/27/19 15:24 in system", had to be given something to reverse trazodone AdvReac "built up Verified 04/27/19 15:24 in system", had to be given something to reverse zolpidem tartrate AdvReac "Became Verified 04/27/19 15:24 [From Ambien] violent with no memory" zonisamide [From Zonegran] AdvReac inability Verified 04/27/19 15:24 to eat artificial sweetener AdvReac SEVERE Uncoded 04/12/19 16:07 MIGRAINE HEADACHE Review of Systems ROS Statement: Those systems with pertinent positive or pertinent negative responses have been documented in the HPI. ROS Other: All systems not noted in ROS Statement are negative. Past Medical History Past Medical History: Hyperlipidemia, Seizure Disorder Additional Past Medical History / Comment(s): Migraines, viral meningitis x3 as a child, 1995, 2000, chronic back pain, nerve blocks 08/2016 and 12/2016. Last seizure 07/22/2017, "ABSENTEE SEIZURES. HX TACHYCARDIA, GB/CIPD History of Any Multi-Drug Resistant Organisms: None Reported Past Surgical History: Appendectomy, Section, Cholecystectomy, Hernia Repair, Hysterectomy, Orthopedic Surgery, Tonsillectomy, Tubal Ligation Additional Past Surgical History / Comment(s): Hiatal Hernia, umbilical hernia repair, left rotator cuff repair, bilateral knee scopes, pain clinic procedures- occipital nerve block on 01/05/2017. abd exploratory sx(endometreosis), 3 abd scopes 1981, 1989, 1991), lumbar puncture. EGD. nerve biopsy, Past Anesthesia/Blood Transfusion Reactions: No Reported Reaction Additional Past Anesthesia/Blood Transfusion Reaction / Comment(s): Claustrophobic Past Psychological History: Anxiety, Bipolar, Panic Disorder Smoking Status: Former smoker Past Alcohol Use History: None Reported Past Drug Use History: None Reported - Past Family History Mother Family Medical History: Cancer, Dementia, Diabetes Mellitus, GERD/Reflux, Hyperlipidemia, Hypertension, Thyroid Disorder Additional Family Medical History / Comment(s): Quad CABG, cardiac stents, toes ampuated. Father History Unknown: Yes Family Medical History: No Reported History General Exam Limitations: no limitations General appearance: alert, in no apparent distress Head exam: Present: atraumatic, normocephalic, normal inspection Eye exam: Present: normal appearance, PERRL, EOMI, other (Unable to perform a thorough eye exam due to photosensitivity) Pupils: Present: normal accommodation ENT exam: Present: normal exam, mucous membranes moist Neck exam: Present: normal inspection, full ROM Respiratory exam: Present: normal lung sounds bilaterally Cardiovascular Exam: Present: regular rate, normal rhythm, normal heart sounds Extremities exam: Present: normal inspection, full ROM Back exam: Present: normal inspection, full ROM Neurological exam: Present: alert, oriented X3, CN II-XII intact, normal gait Psychiatric exam: Present: normal affect, normal mood Skin exam: Present: warm, dry, intact, normal color Course Vital Signs 04/27/19 14:05 Temperature 98.3 F Pulse Rate 109 H Respiratory 17 Rate Blood Pressure 180/113 O2 Sat by Pulse 97 Oximetry Medical Decision Making - Medical Decision Making Patient is a 49-year-old female with history of migraines presenting to the emergency department with a chief complaint of migraine. Patient is known to the ED for frequent visits due to migraine. Patient states this was been ongoing for about 4 days and today has been the worst. She states when her migraines get this bad typically feels exactly like this. Patient was given analgesia, antiemetics and fluids. On reevaluation patient reports improvement in her nausea, headache and photosensitivity. Patient states that she is ready go home. Strict return parameters were thoroughly discussed with patient was understanding and agreeable. Patient advised to follow with primary care. Case discussed with physician. Disposition Clinical Impression: Headache, Migraine Disposition: HOME SELF-CARE Condition: Stable Instructions (If sedation given, give patient instructions): Acute Headache (ED) Additional Instructions: Please follow up with her pain management doctor. Please return to emergency department if symptoms worsen. Is patient prescribed a controlled substance at d/c from ED?: No Referrals: José Reece MD [Primary Care Provider] - 1-2 days Time of Disposition: 15:18
[2019-04-27] MEDS ORDERED: HYDROmorphone 0.5 MG/0.5 ML SYRINGE IVP STA (15:16)
== END 2019-04-27 15:58 | disposition home or self-care (01) ==
LOC: EC 13:53
DX: G43.909 Migraine, unspecified, not intractable, without status migrainosus (principal); E78.5 Hyperlipidemia, unspecified; G40.909 Epilepsy, unspecified, not intractable, without status epilepticus; Z87.891 Personal history of nicotine dependence; Z88.0 Allergy status to penicillin; Z88.1 Allergy status to other antibiotic agents; Z88.5 Allergy status to narcotic agent; Z88.6 Allergy status to analgesic agent; Z88.8 Allergy status to other drugs, medicaments and biological substances; Z91.02 Food additives allergy status; Z91.040 Latex allergy status; Z79.899 Other long term (current) drug therapy
CPT/HCPCS: 99283; 96374; 96375 ×2; 96376; 96361; J1200; J2405; J1170 ×2

== ENCOUNTER 2019-05-03 22:17 | Emergency (ER) | payer OTHER ==
[2019-05-03 22:33] VITALS: RESP 18
[2019-05-03] MEDS ORDERED: ONDANSETRON 4 MG/2 ML VIAL IVP STA (22:34)
[2019-05-03] MEDS ORDERED: diphenhydrAMINE 50 MG/ML 1 ML VIAL IVP STA (22:35)
[2019-05-03] MEDS ORDERED: SODIUM CHLORIDE 0.9% 500 ML 500 ML IV STA (22:35)
--- NOTE | 2019-05-03 22:36 | ED ---
Headache HPI - General Chief Complaint: Headache Stated Complaint: Migraine Time Seen by Provider: 05/03/19 22:34 Mode of arrival: ambulatory Limitations: no limitations - History of Present Illness Initial Comments: Patient is a 49-year-old female with history of chronic migraines presenting to the emergency department with a chief complaint of a migraine. Patient states this was a gradual onset migraine over the last several days with nausea and multiple episodes of vomiting. She does report severe photosensitivity. Patient denies any visual disturbances. Patient states this was a gradual onset and this is not the worst headache of her life. Patient does report taking [id number] analgesics minimal improvement. - Related Data Home Medications Medication Instructions Recorded Confirmed Atorvastatin [Lipitor] 40 mg PO HS 04/02/17 04/27/19 Lacosamide [Vimpat] 100 mg PO BID 06/04/17 04/27/19 HYDROcodone/APAP 7.5-325MG [[place] 1 tab PO TID PRN 07/06/17 04/27/19 7.5-325] amLODIPine [Norvasc] 5 mg PO DAILY 10/26/18 04/27/19 Ergocalciferol [Vitamin D2] 50,000 unit PO WE 01/09/19 04/27/19 Cyclobenzaprine [Flexeril] 5 mg PO DAILY PRN 04/27/19 04/27/19 Previous Rx's Medication Instructions Recorded Ondansetron Odt [Zofran Odt] 4 mg PO Q8HR PRN #30 tab 05/03/19 Allergies Allergy/AdvReac Type Severity Reaction Status Date / Time dihydroergotamine Allergy Unknown Unknown Verified 04/27/19 15:24 [From Migranal] gabapentin [From Neurontin] Allergy Itching/Swe Verified 04/27/19 15:24 lling latex Allergy Anaphylaxis Verified 04/27/19 15:24 naproxen [From Naprosyn] Allergy Anaphylaxis Verified 04/27/19 15:24 Penicillins Allergy Anaphylaxis Verified 04/27/19 15:24 prednisone Allergy Swelling Verified 04/27/19 15:24 quetiapine fumarate Allergy Itching, Verified 04/27/19 15:24 [From Seroquel] leg cramps rofecoxib [From Vioxx] Allergy Itching, Verified 04/27/19 15:24 leg cramps terfenadine [From Seldane] Allergy Rash/Hives Verified 04/27/19 15:24 tramadol Allergy Nausea & Verified 04/27/19 15:24 Vomiting/LEG CRAMPS/HEART FLUTTERS calcium carbonate [From DHEA] AdvReac Chest Pain Verified 04/27/19 15:24 calcium phosphate,dibasic AdvReac Chest Pain Verified 04/27/19 15:24 [From DHEA] clindamycin AdvReac muscle Verified 04/27/19 15:24 cramps clonidine AdvReac fast Verified 04/27/19 15:24 heartbeat, migraine dextromethorphan HBr AdvReac face/neck Verified 04/27/19 15:24 [From NyQuil] flushing diazepam [From Valium] AdvReac Nausea & Verified 04/27/19 15:24 Vomiting divalproex sodium AdvReac Nausea & Verified 04/27/19 15:24 [From Depakote] Vomiting doxylamine [From NyQuil] AdvReac face "beet Verified 04/27/19 15:24 red", elevated temp. ibuprofen [From Motrin] AdvReac abdominal Verified 04/27/19 15:24 & muscle cramps indomethacin [From Indocin] AdvReac Abdominal Verified 04/27/19 15:24 Pain,N/V ketorolac tromethamine AdvReac "built up Verified 04/27/19 15:24 [From Toradol] in system", had to be given something to reverse lorazepam [From Ativan] AdvReac Nausea & Verified 04/27/19 15:24 Vomiting metoclopramide HCl AdvReac muscle Verified 04/27/19 15:24 [From Reglan] cramps nortriptyline [From Pamelor] AdvReac Chest Pain Verified 04/27/19 15:24 prasterone (DHEA) [From DHEA] AdvReac Chest Pain Verified 04/27/19 15:24 prochlorperazine AdvReac leg Verified 04/27/19 15:24 [From Compazine] cramping propranolol AdvReac Chest Pain Verified 04/27/19 15:24 pseudoephedrine HCl AdvReac face "beet Verified 04/27/19 15:24 [From NyQuil] red", elevated temp. quetiapine [From Seroquel] AdvReac leg Verified 04/27/19 15:24 cramping sumatriptan [From Imitrex] AdvReac migrane Verified 04/27/19 15:24 sumatriptan succinate AdvReac migrane Verified 04/27/19 15:24 [From Imitrex] topiramate [From Topamax] AdvReac "built up Verified 04/27/19 15:24 in system", had to be given something to reverse trazodone AdvReac "built up Verified 04/27/19 15:24 in system", had to be given something to reverse zolpidem tartrate AdvReac "Became Verified 04/27/19 15:24 [From Ambien] violent with no memory" zonisamide [From Zonegran] AdvReac inability Verified 04/27/19 15:24 to eat artificial sweetener AdvReac SEVERE Uncoded 04/12/19 16:07 MIGRAINE HEADACHE Review of Systems ROS Statement: Those systems with pertinent positive or pertinent negative responses have been documented in the HPI. ROS Other: All systems not noted in ROS Statement are negative. Past Medical History Past Medical History: Hyperlipidemia, Seizure Disorder Additional Past Medical History / Comment(s): Migraines, viral meningitis x3 as a child, 1995, 2000, chronic back pain, nerve blocks 08/2016 and 12/2016. Last seizure 07/22/2017, "ABSENTEE SEIZURES. HX TACHYCARDIA, GB/CIPD History of Any Multi-Drug Resistant Organisms: None Reported Past Surgical History: Appendectomy, Section, Cholecystectomy, Hernia Repair, Hysterectomy, Orthopedic Surgery, Tonsillectomy, Tubal Ligation Additional Past Surgical History / Comment(s): Hiatal Hernia, umbilical hernia repair, left rotator cuff repair, bilateral knee scopes, pain clinic procedures-occipital nerve block on 01/05/2017. abd exploratory sx(endometreosis), 3 abd scopes 1981, 1989, 1991), lumbar puncture. EGD. nerve biopsy, Past Anesthesia/Blood Transfusion Reactions: No Reported Reaction Additional Past Anesthesia/Blood Transfusion Reaction / Comment(s): Claustrophobic Past Psychological History: Anxiety, Bipolar, Panic Disorder Smoking Status: Former smoker Past Alcohol Use History: None Reported Past Drug Use History: None Reported - Past Family History Mother Family Medical History: Cancer, Dementia, Diabetes Mellitus, GERD/Reflux, Hyperlipidemia, Hypertension, Thyroid Disorder Additional Family Medical History / Comment(s): Quad CABG, cardiac stents, toes ampuated. Father History Unknown: Yes Family Medical History: No Reported History General Exam Limitations: no limitations General appearance: alert Head exam: Present: atraumatic, normocephalic, other Eye exam: Present: normal appearance Pupils: Present: normal accommodation ENT exam: Present: normal exam, mucous membranes moist Neck exam: Present: normal inspection, full ROM Cardiovascular Exam: Present: regular rate, normal rhythm, normal heart sounds Extremities exam: Present: normal inspection, full ROM Back exam: Present: normal inspection, full ROM Neurological exam: Present: alert, oriented X3, CN II-XII intact, normal gait Psychiatric exam: Present: normal affect, normal mood Skin exam: Present: warm, intact, normal color Course Vital Signs 05/03/19 05/04/19 22:31 01:14 Temperature 98.2 F 97.9 F Pulse Rate 118 H 75 Respiratory 18 18 Rate Blood Pressure 146/101 138/82 O2 Sat by Pulse 98 Oximetry Medical Decision Making - Medical Decision Making Patient is a 49-year-old female with history of chronic migraines presenting to emergency Department with a chief complaint of a migraine. This was a gradual onset headache with no visual disturbances. Patient does have photosensitivity nausea with multiple episodes of vomiting. Patient states this headache feels exactly like her previous ones. Patient was given IV fluids, analgesia and antiemetics and Benadryl. Sphenopalatine block was also administered in bilateral nostrils. Patient does report improved symptoms with the sphenopalatine block. On reevaluation patient reports improvement in his symptoms. Strict return parameters were thoroughly discussed with patient was understanding and agreeable. Case discussed with physician. Disposition Clinical Impression: Migraine without aura Disposition: HOME SELF-CARE Condition: Stable Instructions (If sedation given, give patient instructions): Acute Headache (ED) Additional Instructions: Please take prescribed medication as directed. Follow-up with neurology. Return to emergency department if symptoms worsen. Prescriptions: Ondansetron Odt [Zofran Odt] 4 mg PO Q8HR PRN #30 tab PRN Reason: Nausea Is patient prescribed a controlled substance at d/c from ED?: No Referrals: José Reece MD [Primary Care Provider] - 1-2 days Time of Disposition: 00:08
[2019-05-03] MEDS ORDERED: LIDOCAINE 1% INJ 10MG/ML (20 ML MDV) SQ ONE (22:37)
[2019-05-03] MEDS: HYDROmorphone 1 MG/ML 1 ML SYRINGE IVP STA (23:28)
[2019-05-04] MEDS ORDERED: HYDROmorphone 1 MG/ML 1 ML SYRINGE IVP STA (00:06)
[2019-05-04] MEDS: HYDROmorphone 1 MG/ML 1 ML SYRINGE IVP STA (00:17)
[2019-05-04 01:16] VITALS: BP 138/82; PULSE 75; TEMP 97.9
== END 2019-05-04 01:18 | disposition home or self-care (01) ==
LOC: EC 22:17
DX: G43.009 Migraine without aura, not intractable, without status migrainosus (principal); G40.909 Epilepsy, unspecified, not intractable, without status epilepticus; E78.5 Hyperlipidemia, unspecified; Z79.899 Other long term (current) drug therapy; Z88.2 Allergy status to sulfonamides; Z88.8 Allergy status to other drugs, medicaments and biological substances; Z88.6 Allergy status to analgesic agent; Z88.1 Allergy status to other antibiotic agents; Z88.5 Allergy status to narcotic agent; Z88.0 Allergy status to penicillin; Z91.040 Latex allergy status; Z86.61 Personal history of infections of the central nervous system; Z87.891 Personal history of nicotine dependence
CPT/HCPCS: 96374; 96375 ×2; 99283; 64505; J1200; J2405; J1642; J2001; J1170 ×2

== ENCOUNTER 2019-05-13 19:08 | Emergency (ER) | payer OTHER ==
[2019-05-13 19:13] VITALS: TEMP 97.9
[2019-05-13] MEDS ORDERED: SODIUM CHLORIDE 0.9% 1,000 ML IV STA (19:26)
[2019-05-13] MEDS ORDERED: diphenhydrAMINE 50 MG/ML 1 ML VIAL IVP STA ×2 (19:26→22:08)
[2019-05-13] MEDS ORDERED: ONDANSETRON 4 MG/2 ML VIAL IVP STA (19:26)
--- NOTE | 2019-05-13 19:26 | ED ---
Headache HPI - General Chief Complaint: Headache Stated Complaint: Migraine Time Seen by Provider: 05/13/19 19:22 Source: RN notes reviewed, old records reviewed Mode of arrival: wheelchair Limitations: no limitations - History of Present Illness Initial Comments: This is a 49-year-old female DF for evaluation of headache migraine headaches. Patient does have history of migraine headaches is multiple ER visits for similar complaints. Patient states her headache is normal for her migraine. Photophobia phonophobia no trauma no fever. Positive nausea no vomiting, no recent travel history or sick contacts. MD Complaint: headache, "migraine" (same As prior) Onset Description: gradual Location: frontal, temporal Severity: moderate Severity scale (1-10): 4 Quality: aching, throbbing Consistency: constant Improves With: nothing Worsens With: none Context: occurred at rest Associated Symptoms: nausea, photophobia, sensitivity to sound - Related Data Home Medications Medication Instructions Recorded Confirmed Atorvastatin [Lipitor] 40 mg PO HS 04/02/17 04/27/19 Lacosamide [Vimpat] 100 mg PO BID 06/04/17 04/27/19 HYDROcodone/APAP 7.5-325MG [[place] 1 tab PO TID PRN 07/06/17 04/27/19 7.5-325] amLODIPine [Norvasc] 5 mg PO DAILY 10/26/18 04/27/19 Ergocalciferol [Vitamin D2] 50,000 unit PO WE 01/09/19 04/27/19 Cyclobenzaprine [Flexeril] 5 mg PO DAILY PRN 04/27/19 04/27/19 Previous Rx's Medication Instructions Recorded Ondansetron Odt [Zofran Odt] 4 mg PO Q8HR PRN #30 tab 05/03/19 Allergies Allergy/AdvReac Type Severity Reaction Status Date / Time dihydroergotamine Allergy Unknown Unknown Verified 05/13/19 19:12 [From Migranal] gabapentin [From Neurontin] Allergy Itching/Swe Verified 05/13/19 19:12 lling latex Allergy Anaphylaxis Verified 05/13/19 19:12 naproxen [From Naprosyn] Allergy Anaphylaxis Verified 05/13/19 19:12 Penicillins Allergy Anaphylaxis Verified 05/13/19 19:12 prednisone Allergy Swelling Verified 05/13/19 19:12 quetiapine fumarate Allergy Itching, Verified 05/13/19 19:12 [From Seroquel] leg cramps rofecoxib [From Vioxx] Allergy Itching, Verified 05/13/19 19:12 leg cramps terfenadine [From Seldane] Allergy Rash/Hives Verified 05/13/19 19:12 tramadol Allergy Nausea & Verified 05/13/19 19:12 Vomiting/LEG CRAMPS/HEART FLUTTERS calcium carbonate [From DHEA] AdvReac Chest Pain Verified 05/13/19 19:12 calcium phosphate,dibasic AdvReac Chest Pain Verified 05/13/19 19:12 [From DHEA] clindamycin AdvReac muscle Verified 05/13/19 19:12 cramps clonidine AdvReac fast Verified 05/13/19 19:12 heartbeat, migraine dextromethorphan HBr AdvReac face/neck Verified 05/13/19 19:12 [From NyQuil] flushing diazepam [From Valium] AdvReac Nausea & Verified 05/13/19 19:12 Vomiting divalproex sodium AdvReac Nausea & Verified 05/13/19 19:12 [From Depakote] Vomiting doxylamine [From NyQuil] AdvReac face "beet Verified 05/13/19 19:12 red", elevated temp. ibuprofen [From Motrin] AdvReac abdominal Verified 05/13/19 19:12 & muscle cramps indomethacin [From Indocin] AdvReac Abdominal Verified 05/13/19 19:12 Pain,N/V ketorolac tromethamine AdvReac "built up Verified 05/13/19 19:12 [From Toradol] in system", had to be given something to reverse lorazepam [From Ativan] AdvReac Nausea & Verified 05/13/19 19:12 Vomiting metoclopramide HCl AdvReac muscle Verified 05/13/19 19:12 [From Reglan] cramps nortriptyline [From Pamelor] AdvReac Chest Pain Verified 05/13/19 19:12 prasterone (DHEA) [From DHEA] AdvReac Chest Pain Verified 05/13/19 19:12 prochlorperazine AdvReac leg Verified 05/13/19 19:12 [From Compazine] cramping propranolol AdvReac Chest Pain Verified 05/13/19 19:12 pseudoephedrine HCl AdvReac face "beet Verified 05/13/19 19:12 [From NyQuil] red", elevated temp. quetiapine [From Seroquel] AdvReac leg Verified 05/13/19 19:12 cramping sumatriptan [From Imitrex] AdvReac migrane Verified 05/13/19 19:12 sumatriptan succinate AdvReac migrane Verified 05/13/19 19:12 [From Imitrex] topiramate [From Topamax] AdvReac "built up Verified 05/13/19 19:12 in system", had to be given something to reverse trazodone AdvReac "built up Verified 05/13/19 19:12 in system", had to be given something to reverse zolpidem tartrate AdvReac "Became Verified 05/13/19 19:12 [From Ambien] violent with no memory" zonisamide [From Zonegran] AdvReac inability Verified 05/13/19 19:12 to eat artificial sweetener AdvReac SEVERE Uncoded 05/13/19 19:12 MIGRAINE HEADACHE Review of Systems ROS Statement: Those systems with pertinent positive or pertinent negative responses have been documented in the HPI. ROS Other: All systems not noted in ROS Statement are negative. Past Medical History Past Medical History: Hyperlipidemia, Hypertension, Seizure Disorder Additional Past Medical History / Comment(s): Migraines, viral meningitis x3 as a child, 1995, 2000, chronic back pain, nerve blocks 08/2016 and 12/2016. Last seizure 07/22/2017, "ABSENTEE SEIZURES. HX TACHYCARDIA, GB/CIPD History of Any Multi-Drug Resistant Organisms: None Reported Past Surgical History: Appendectomy, Section, Cholecystectomy, Hernia Repair, Hysterectomy, Orthopedic Surgery, Tonsillectomy, Tubal Ligation Additional Past Surgical History / Comment(s): Hiatal Hernia, umbilical hernia repair, left rotator cuff repair, bilateral knee scopes, pain clinic procedures- occipital nerve block on 01/05/2017. abd exploratory sx(endometreosis), 3 abd s sarah 1981, 1989, 1991), lumbar puncture. EGD. nerve biopsy, Past Anesthesia/Blood Transfusion Reactions: No Reported Reaction Additional Past Anesthesia/Blood Transfusion Reaction / Comment(s): Claustrophobic Past Psychological History: Anxiety, Bipolar, Panic Disorder Smoking Status: Former smoker Past Alcohol Use History: None Reported Past Drug Use History: None Reported - Past Family History Mother Family Medical History: Cancer, Dementia, Diabetes Mellitus, GERD/Reflux, Hyperlipidemia, Hypertension, Thyroid Disorder Additional Family Medical History / Comment(s): Quad CABG, cardiac stents, toes ampuated. Father History Unknown: Yes Family Medical History: No Reported History General Exam Limitations: no limitations General appearance: alert, in no apparent distress Head exam: Present: atraumatic, normocephalic, normal inspection Eye exam: Present: normal appearance, PERRL, EOMI. Absent: scleral icterus, conjunctival injection, periorbital swelling ENT exam: Present: normal exam, mucous membranes moist Neck exam: Present: normal inspection. Absent: tenderness, meningismus, lymphadenopathy Respiratory exam: Present: normal lung sounds bilaterally. Absent: respiratory distress, wheezes, rales, rhonchi, stridor Cardiovascular Exam: Present: regular rate, normal rhythm, normal heart sounds. Absent: systolic murmur, diastolic murmur, rubs, gallop, clicks GI/Abdominal exam: Present: soft, normal bowel sounds. Absent: distended, tenderness, guarding, rebound, rigid Extremities exam: Present: normal inspection, full ROM, normal capillary refill. Absent: tenderness, pedal edema, joint swelling, calf tenderness Back exam: Present: normal inspection Neurological exam: Present: alert, oriented X3, CN II-XII intact Psychiatric exam: Present: normal affect, normal mood Skin exam: Present: warm, dry, intact, normal color. Absent: rash Course Vital Signs 05/13/19 05/13/19 05/13/19 19:09 20:18 21:00 Temperature 97.9 F Pulse Rate 133 H 115 H 114 H Respiratory 22 17 17 Rate Blood Pressure 171/103 158/100 149/105 O2 Sat by Pulse 98 95 98 Oximetry - Reevaluation(s) Reevaluation #1: 05/13/19 19:26 Medical record prior ER visits have been reviewed Reevaluation #2: 05/13/19 22:03 Patient continued to have pain after pain medication at this time patient has been told that she will not give any further pain medication here in the ER Medical Decision Making - Medical Decision Making 49 female to the ER recurrent migraine headache patient can be discharged home headache is improved but not resolved Disposition Clinical Impression: Headache, Migraine without aura Disposition: HOME SELF-CARE Condition: Fair Instructions (If sedation given, give patient instructions): Acute Headache (ED) Is patient prescribed a controlled substance at d/c from ED?: No Referrals: José Reece MD [Primary Care Provider] - 1-2 days
[2019-05-13] MEDS ORDERED: HYDROmorphone 1 MG/ML 1 ML SYRINGE IVP STA ×2 (19:27→21:14)
[2019-05-13] MEDS ORDERED: LORazepam 2 MG/ML INJ IV STA (21:15)
[2019-05-13] MEDS ORDERED: FAMOTIDINE 20 MG/2 ML VIAL IV STA (22:08)
[2019-05-13 22:23] VITALS: BP 140/96; PULSE 110; RESP 18
== END 2019-05-13 22:23 | disposition home or self-care (01) ==
LOC: EC 19:08
DX: G43.009 Migraine without aura, not intractable, without status migrainosus (principal); E78.5 Hyperlipidemia, unspecified; I10 Essential (primary) hypertension; Z79.899 Other long term (current) drug therapy; Z88.2 Allergy status to sulfonamides; Z88.8 Allergy status to other drugs, medicaments and biological substances; Z88.6 Allergy status to analgesic agent; Z88.1 Allergy status to other antibiotic agents; Z88.5 Allergy status to narcotic agent; Z88.0 Allergy status to penicillin; Z91.040 Latex allergy status; Z87.891 Personal history of nicotine dependence; Z86.61 Personal history of infections of the central nervous system
CPT/HCPCS: 99284; 96374; 96375 ×4; 96376 ×2; 96361; J2060; J1200; J2405; J1170

== ENCOUNTER 2019-05-19 18:04 | Emergency (ER) | payer OTHER ==
[2019-05-19 18:10] VITALS: RESP 18
[2019-05-19] MEDS ORDERED: ONDANSETRON 4 MG/2 ML VIAL IVP STA (18:44)
[2019-05-19] MEDS ORDERED: SODIUM CHLORIDE 0.9% 1,000 ML IV ONE (18:44)
[2019-05-19] MEDS ORDERED: HYDROmorphone 1 MG/ML 1 ML SYRINGE IVP STA ×2 (18:44→19:52)
[2019-05-19] MEDS ORDERED: diphenhydrAMINE 50 MG/ML 1 ML VIAL IVP STA (18:45)
[2019-05-19] MEDS ORDERED: LORazepam 2 MG/ML INJ IV STA (19:55)
--- NOTE | 2019-05-19 20:00 | ED ---
General Adult HPI - General Chief complaint: Headache Stated complaint: headache Time Seen by Provider: 05/19/19 18:40 Source: patient, RN notes reviewed, old records reviewed Mode of arrival: wheelchair Limitations: no limitations - History of Present Illness Initial comments: 49-year-old female with history of chronic headaches presents for evaluation of headache. This is a frontal headache with photophobia and nausea. She states that this is typical of her normal migraine headaches. She has tried symptomatic control at home but has been unable to control her symptoms. She reports a gradual onset of this headache. She follows breath with pain management and neurology on a regular basis. She denies chest pain or abdominal pain. Denies dyspnea. Denies URI symptoms. Denies dysuria or hematuria. - Related Data Home Medications Medication Instructions Recorded Confirmed Atorvastatin [Lipitor] 40 mg PO HS 04/02/17 04/27/19 Lacosamide [Vimpat] 100 mg PO BID 06/04/17 04/27/19 HYDROcodone/APAP 7.5-325MG [[place] 1 tab PO TID PRN 07/06/17 04/27/19 7.5-325] amLODIPine [Norvasc] 5 mg PO DAILY 10/26/18 04/27/19 Ergocalciferol [Vitamin D2] 50,000 unit PO WE 01/09/19 04/27/19 Cyclobenzaprine [Flexeril] 5 mg PO DAILY PRN 04/27/19 04/27/19 Previous Rx's Medication Instructions Recorded Ondansetron Odt [Zofran Odt] 4 mg PO Q8HR PRN #30 tab 05/03/19 Allergies Allergy/AdvReac Type Severity Reaction Status Date / Time dihydroergotamine Allergy Unknown Unknown Verified 05/19/19 18:10 [From Migranal] gabapentin [From Neurontin] Allergy Itching/Swe Verified 05/19/19 18:10 lling latex Allergy Anaphylaxis Verified 05/19/19 18:10 naproxen [From Naprosyn] Allergy Anaphylaxis Verified 05/19/19 18:10 Penicillins Allergy Anaphylaxis Verified 05/19/19 18:10 prednisone Allergy Swelling Verified 05/19/19 18:10 quetiapine fumarate Allergy Itching, Verified 05/19/19 18:10 [From Seroquel] leg cramps rofecoxib [From Vioxx] Allergy Itching, Verified 05/19/19 18:10 leg cramps terfenadine [From Seldane] Allergy Rash/Hives Verified 05/19/19 18:10 tramadol Allergy Nausea & Verified 05/19/19 18:10 Vomiting/LEG CRAMPS/HEART FLUTTERS calcium carbonate [From DHEA] AdvReac Chest Pain Verified 05/19/19 18:10 calcium phosphate,dibasic AdvReac Chest Pain Verified 05/19/19 18:10 [From DHEA] clindamycin AdvReac muscle Verified 05/19/19 18:10 cramps clonidine AdvReac fast Verified 05/19/19 18:10 heartbeat, migraine dextromethorphan HBr AdvReac face/neck Verified 05/19/19 18:10 [From NyQuil] flushing diazepam [From Valium] AdvReac Nausea & Verified 05/19/19 18:10 Vomiting divalproex sodium AdvReac Nausea & Verified 05/19/19 18:10 [From Depakote] Vomiting doxylamine [From NyQuil] AdvReac face "beet Verified 05/19/19 18:10 red", elevated temp. ibuprofen [From Motrin] AdvReac abdominal Verified 05/19/19 18:10 & muscle cramps indomethacin [From Indocin] AdvReac Abdominal Verified 05/19/19 18:10 Pain,N/V ketorolac tromethamine AdvReac "built up Verified 05/19/19 18:10 [From Toradol] in system", had to be given something to reverse lorazepam [From Ativan] AdvReac Nausea & Verified 05/19/19 18:10 Vomiting metoclopramide HCl AdvReac muscle Verified 05/19/19 18:10 [From Reglan] cramps nortriptyline [From Pamelor] AdvReac Chest Pain Verified 05/19/19 18:10 prasterone (DHEA) [From DHEA] AdvReac Chest Pain Verified 05/19/19 18:10 prochlorperazine AdvReac leg Verified 05/19/19 18:10 [From Compazine] cramping propranolol AdvReac Chest Pain Verified 05/19/19 18:10 pseudoephedrine HCl AdvReac face "beet Verified 05/19/19 18:10 [From NyQuil] red", elevated temp. quetiapine [From Seroquel] AdvReac leg Verified 05/19/19 18:10 cramping sumatriptan [From Imitrex] AdvReac migrane Verified 05/19/19 18:10 sumatriptan succinate AdvReac migrane Verified 05/19/19 18:10 [From Imitrex] topiramate [From Topamax] AdvReac "built up Verified 05/19/19 18:10 in system", had to be given something to reverse trazodone AdvReac "built up Verified 05/19/19 18:10 in system", had to be given something to reverse zolpidem tartrate AdvReac "Became Verified 05/19/19 18:10 [From Ambien] violent with no memory" zonisamide [From Zonegran] AdvReac inability Verified 05/19/19 18:10 to eat artificial sweetener AdvReac SEVERE Uncoded 05/19/19 18:10 MIGRAINE HEADACHE Review of Systems ROS Statement: Those systems with pertinent positive or pertinent negative responses have been documented in the HPI. ROS Other: All systems not noted in ROS Statement are negative. Past Medical History Past Medical History: Hyperlipidemia, Hypertension, Seizure Disorder Additional Past Medical History / Comment(s): Migraines, viral meningitis x3 as a child, 1995, 2000, chronic back pain, nerve blocks 08/2016 and 12/2016. Last seizure 07/22/2017, "ABSENT SEIZURES. HX TACHYCARDIA, GB/CIPD, PTSD History of Any Multi-Drug Resistant Organisms: None Reported Past Surgical History: Appendectomy, Section, Cholecystectomy, Hernia Repair, Hysterectomy, Orthopedic Surgery, Tonsillectomy, Tubal Ligation Additional Past Surgical History / Comment(s): Hiatal Hernia, umbilical hernia repair, left rotator cuff repair, bilateral knee scopes, pain clinic procedures- occipital nerve block on 01/05/2017. abd exploratory sx(endometreosis), 3 abd sc opes 1981, 1989, 1991), lumbar puncture. EGD. nerve biopsy, Past Anesthesia/Blood Transfusion Reactions: No Reported Reaction Additional Past Anesthesia/Blood Transfusion Reaction / Comment(s): Claustrophobic Past Psychological History: Anxiety, Bipolar, Panic Disorder, PTSD Smoking Status: Current every day smoker Past Alcohol Use History: None Reported Past Drug Use History: None Reported - Past Family History Mother Family Medical History: Cancer, Dementia, Diabetes Mellitus, GERD/Reflux, Hyperlipidemia, Hypertension, Thyroid Disorder Additional Family Medical History / Comment(s): Quad CABG, cardiac stents, toes ampuated. Father History Unknown: Yes Family Medical History: No Reported History General Exam Limitations: no limitations General appearance: alert, in no apparent distress Head exam: Present: atraumatic, normocephalic Eye exam: Present: normal appearance, PERRL, EOMI. Absent: periorbital swelling, periorbital tenderness ENT exam: Present: normal exam Neck exam: Present: normal inspection, full ROM. Absent: tenderness, meningismus Respiratory exam: Present: normal lung sounds bilaterally. Absent: respiratory distress, wheezes Cardiovascular Exam: Present: regular rate, normal rhythm GI/Abdominal exam: Present: soft. Absent: distended, tenderness, guarding Extremities exam: Present: normal inspection, normal capillary refill. Absent: pedal edema Neurological exam: Present: alert, oriented X3, CN II-XII intact, normal gait. Absent: motor sensory deficit Psychiatric exam: Present: normal affect, normal mood Skin exam: Present: warm, dry, intact. Absent: cyanosis, diaphoretic Course Vital Signs 05/19/19 18:05 Temperature 98.1 F Pulse Rate 109 H Respiratory 18 Rate Blood Pressure 158/100 O2 Sat by Pulse 99 Oximetry Medical Decision Making - Medical Decision Making 49-year-old female presenting for evaluation of typical migraine headache. Patient denies any differences in his headache in her baseline headache. Not the worst headache of her life, not thunderclap headache. She has close neurology follow-up as an outpatient which is given which she describes as her usual headache cocktail which is prescribed by her neurologist at [facility]. This did relieve her headache and she is eager to go home and rest. Disposition Clinical Impression: Headache Disposition: HOME SELF-CARE Condition: Fair Instructions (If sedation given, give patient instructions): Acute Headache (ED) Is patient prescribed a controlled substance at d/c from ED?: No Referrals: José Reece MD [Primary Care Provider] - 1-2 days Decision to Admit Reason: Admit from EC Decision Date: 05/19/19 Decision Time: 20:02
[2019-05-19] MEDS ORDERED: LACOSAMIDE 50 MG TABLET PO STA (20:36)
[2019-05-19 20:48] VITALS: BP 142/99; PULSE 105; TEMP 98
== END 2019-05-19 21:09 | disposition home or self-care (01) ==
LOC: EC 18:04
DX: R51 Headache (principal); H53.149 Visual discomfort, unspecified; R11.0 Nausea; E78.5 Hyperlipidemia, unspecified; I10 Essential (primary) hypertension; G40.909 Epilepsy, unspecified, not intractable, without status epilepticus; G89.29 Other chronic pain; F17.200 Nicotine dependence, unspecified, uncomplicated; Z88.0 Allergy status to penicillin; Z88.1 Allergy status to other antibiotic agents; Z88.2 Allergy status to sulfonamides; Z88.5 Allergy status to narcotic agent; Z88.6 Allergy status to analgesic agent; Z88.8 Allergy status to other drugs, medicaments and biological substances; Z91.02 Food additives allergy status; Z91.040 Latex allergy status; Z79.899 Other long term (current) drug therapy; Z86.69 Personal history of other diseases of the nervous system and sense organs
CPT/HCPCS: 99284; 96374; 96375 ×4; 96376; 96361; J2060; J1200; J2405; J1642; J1170

== ENCOUNTER 2019-05-26 16:24 | Emergency (ER) | payer OTHER ==
[2019-05-26] MEDS ORDERED: METOCLOPRAMIDE 5 MG/ML 2 ML VIAL IVP STA (17:30)
[2019-05-26] MEDS ORDERED: HYDROmorphone 1 MG/ML 1 ML SYRINGE IVP STA ×3 (17:30→18:22)
[2019-05-26] MEDS ORDERED: diphenhydrAMINE 50 MG/ML 1 ML VIAL IVP STA (17:30)
[2019-05-26] MEDS ORDERED: SODIUM CHLORIDE 0.9% 1,000 ML IV ONE (17:30)
[2019-05-26] MEDS ORDERED: ONDANSETRON 4 MG/2 ML VIAL IVP STA (17:33)
--- NOTE | 2019-05-26 17:50 | ED ---
General Adult HPI - General Chief complaint: Headache Stated complaint: Migraine, vomiting Time Seen by Provider: 05/26/19 17:08 Source: patient, RN notes reviewed, old records reviewed Mode of arrival: ambulatory Limitations: no limitations - History of Present Illness Initial comments: 49-year-old female presents emergency department today for evaluation for her typical migraine headache. She has history of migraines. This feels similar to previous presentations. She is wants emergency Department for this complaint. Patient states that she's had no thunderclap headache. She went to some social nausea and vomiting with this headache. Just reports some photophobia. Patient states she has no neck pain. Denies any chest pain shortness breath, abdominal pain or fevers or chills. - Related Data Home Medications Medication Instructions Recorded Confirmed Atorvastatin [Lipitor] 40 mg PO HS 04/02/17 04/27/19 Lacosamide [Vimpat] 100 mg PO BID 06/04/17 04/27/19 HYDROcodone/APAP 7.5-325MG [[place] 1 tab PO TID PRN 07/06/17 04/27/19 7.5-325] amLODIPine [Norvasc] 5 mg PO DAILY 10/26/18 04/27/19 Ergocalciferol [Vitamin D2] 50,000 unit PO WE 01/09/19 04/27/19 Cyclobenzaprine [Flexeril] 5 mg PO DAILY PRN 04/27/19 04/27/19 Previous Rx's Medication Instructions Recorded Ondansetron Odt [Zofran Odt] 4 mg PO Q8HR PRN #30 tab 05/03/19 Allergies Allergy/AdvReac Type Severity Reaction Status Date / Time dihydroergotamine Allergy Unknown Unknown Verified 05/26/19 16:38 [From Migranal] gabapentin [From Neurontin] Allergy Itching/Swe Verified 05/26/19 16:38 lling latex Allergy Anaphylaxis Verified 05/26/19 16:38 naproxen [From Naprosyn] Allergy Anaphylaxis Verified 05/26/19 16:38 Penicillins Allergy Anaphylaxis Verified 05/26/19 16:38 prednisone Allergy Swelling Verified 05/26/19 16:38 quetiapine fumarate Allergy Itching, Verified 05/26/19 16:38 [From Seroquel] leg cramps rofecoxib [From Vioxx] Allergy Itching, Verified 05/26/19 16:38 leg cramps terfenadine [From Seldane] Allergy Rash/Hives Verified 05/26/19 16:38 tramadol Allergy Nausea & Verified 05/26/19 16:38 Vomiting/LEG CRAMPS/HEART FLUTTERS calcium carbonate [From DHEA] AdvReac Chest Pain Verified 05/26/19 16:38 calcium phosphate,dibasic AdvReac Chest Pain Verified 05/26/19 16:38 [From DHEA] clindamycin AdvReac muscle Verified 05/26/19 16:38 cramps clonidine AdvReac fast Verified 05/26/19 16:38 heartbeat, migraine dextromethorphan HBr AdvReac face/neck Verified 05/26/19 16:38 [From NyQuil] flushing diazepam [From Valium] AdvReac Nausea & Verified 05/26/19 16:38 Vomiting divalproex sodium AdvReac Nausea & Verified 05/26/19 16:38 [From Depakote] Vomiting doxylamine [From NyQuil] AdvReac face "beet Verified 05/26/19 16:38 red", elevated temp. ibuprofen [From Motrin] AdvReac abdominal Verified 05/26/19 16:38 & muscle cramps indomethacin [From Indocin] AdvReac Abdominal Verified 05/26/19 16:38 Pain,N/V ketorolac tromethamine AdvReac "built up Verified 05/26/19 16:38 [From Toradol] in system", had to be given something to reverse lorazepam [From Ativan] AdvReac Nausea & Verified 05/26/19 16:38 Vomiting metoclopramide HCl AdvReac muscle Verified 05/26/19 16:38 [From Reglan] cramps nortriptyline [From Pamelor] AdvReac Chest Pain Verified 05/26/19 16:38 prasterone (DHEA) [From DHEA] AdvReac Chest Pain Verified 05/26/19 16:38 prochlorperazine AdvReac leg Verified 05/26/19 16:38 [From Compazine] cramping propranolol AdvReac Chest Pain Verified 05/26/19 16:38 pseudoephedrine HCl AdvReac face "beet Verified 05/26/19 16:38 [From NyQuil] red", elevated temp. quetiapine [From Seroquel] AdvReac leg Verified 05/26/19 16:38 cramping sumatriptan [From Imitrex] AdvReac migrane Verified 05/26/19 16:38 sumatriptan succinate AdvReac migrane Verified 05/26/19 16:38 [From Imitrex] topiramate [From Topamax] AdvReac "built up Verified 05/26/19 16:38 in system", had to be given something to reverse trazodone AdvReac "built up Verified 05/26/19 16:38 in system", had to be given something to reverse zolpidem tartrate AdvReac "Became Verified 05/26/19 16:38 [From Ambien] violent with no memory" zonisamide [From Zonegran] AdvReac inability Verified 05/26/19 16:38 to eat artificial sweetener AdvReac SEVERE Uncoded 05/26/19 16:38 MIGRAINE HEADACHE Review of Systems ROS Statement: Those systems with pertinent positive or pertinent negative responses have been documented in the HPI. ROS Other: All systems not noted in ROS Statement are negative. Past Medical History Past Medical History: Hyperlipidemia, Hypertension, Seizure Disorder Additional Past Medical History / Comment(s): Migraines, viral meningitis x3 as a child, 1995, 2000, chronic back pain, nerve blocks 08/2016 and 12/2016. Last seizure 07/22/2017, "ABSENT SEIZURES. HX TACHYCARDIA, GB/CIPD, PTSD History of Any Multi-Drug Resistant Organisms: None Reported Past Surgical History: Appendectomy, Section, Cholecystectomy, Hernia Repair, Hysterectomy, Orthopedic Surgery, Tonsillectomy, Tubal Ligation Additional Past Surgical History / Comment(s): Hiatal Hernia, umbilical hernia repair, left rotator cuff repair, bilateral knee scopes, pain clinic procedures- occipital nerve block on 01/05/2017. abd exploratory sx(endometreosis), 3 abd scopes 1981, 1989, 1991), lumbar puncture. EGD. nerve biopsy, Past Anesthesia/Blood Transfusion Reactions: No Reported Reaction Additional Past Anesthesia/Blood Transfusion Reaction / Comment(s): Claustrophobic Past Psychological History: Anxiety, Bipolar, Panic Disorder, PTSD Smoking Status: Current every day smoker Past Alcohol Use History: None Reported Past Drug Use History: None Reported - Past Family History Mother Family Medical History: Cancer, Dementia, Diabetes Mellitus, GERD/Reflux, Hyperlipidemia, Hypertension, Thyroid Disorder Additional Family Medical History / Comment(s): Quad CABG, cardiac stents, toes ampuated. Father History Unknown: Yes Family Medical History: No Reported History General Exam - General Exam Comments Initial Comments: 49-year-old female. No distress. Limitations: no limitations General appearance: alert, in no apparent distress Head exam: Present: atraumatic, normocephalic, normal inspection Eye exam: Present: normal appearance, PERRL, EOMI. Absent: scleral icterus, conjunctival injection, periorbital swelling ENT exam: Present: normal exam, mucous membranes moist Neck exam: Present: normal inspection. Absent: tenderness, meningismus, lymphadenopathy Respiratory exam: Present: normal lung sounds bilaterally. Absent: respiratory distress, wheezes, rales, rhonchi, stridor Cardiovascular Exam: Present: regular rate, normal rhythm, normal heart sounds. Absent: systolic murmur, diastolic murmur, rubs, gallop, clicks GI/Abdominal exam: Present: soft, normal bowel sounds. Absent: distended, tenderness, guarding, rebound, rigid Extremities exam: Present: normal inspection, full ROM, normal capillary refill. Absent: tenderness, pedal edema, joint swelling, calf tenderness Back exam: Present: normal inspection Neurological exam: Present: alert, oriented X3, CN II-XII intact Psychiatric exam: Present: normal affect, normal mood Skin exam: Present: warm, dry, intact, normal color. Absent: rash Course Vital Signs 05/26/19 05/26/19 05/26/19 16:34 18:42 19:58 Temperature 97.7 F 98.0 F Pulse Rate 110 H 104 H 111 H Respiratory 20 18 18 Rate Blood Pressure 144/98 141/110 148/98 O2 Sat by Pulse 95 98 95 Oximetry Medical Decision Making - Medical Decision Making 49 year old female presents today for CC of headache, with extensive history of migraines. She has no neurological deficits and reports this is similiar to previous migraines. Patient was given migraine cocktail, and reports some resolution of pain. she was given spphenopalantine block with further reduction of headache. Disposition Clinical Impression: Migraine Disposition: HOME SELF-CARE Condition: Good Instructions (If sedation given, give patient instructions): Acute Headache (ED) Additional Instructions: Please follow up with family doctor if symptoms have not improved over the next two days. Please return to the emergency room if your symptoms increase or worsen or for any other concerns. Is patient prescribed a controlled substance at d/c from ED?: No Referrals: José Reeec MD [Primary Care Provider] - 1-2 days Time of Disposition: 19:21
[2019-05-26] MEDS ORDERED: LORazepam 2 MG/ML INJ IV STA (18:22)
[2019-05-26] MEDS ORDERED: LIDOCAINE 1% INJ 10MG/ML (20 ML MDV) SQ ONE (18:23)
[2019-05-26 18:43] VITALS: RESP 18
[2019-05-26 19:59] VITALS: BP 148/98; PULSE 111; TEMP 98
--- NOTE | 2019-05-28 06:49 | CDI ---
Dear Bertha Montoya PA-C, PAC Please provide procedure done related to lidocaine administered. Thank you, Delilah Rabago Night Assistant If you have any questions, please contact Network Intelligence Analyst at [phone] [facility]
== END 2019-05-26 19:59 | disposition home or self-care (01) ==
LOC: EC 16:24
DX: G43.909 Migraine, unspecified, not intractable, without status migrainosus (principal); E78.5 Hyperlipidemia, unspecified; I10 Essential (primary) hypertension; G40.909 Epilepsy, unspecified, not intractable, without status epilepticus; F17.200 Nicotine dependence, unspecified, uncomplicated; Z86.69 Personal history of other diseases of the nervous system and sense organs; Z79.899 Other long term (current) drug therapy; Z88.8 Allergy status to other drugs, medicaments and biological substances; Z91.040 Latex allergy status; Z88.6 Allergy status to analgesic agent; Z88.0 Allergy status to penicillin; Z88.5 Allergy status to narcotic agent; Z88.1 Allergy status to other antibiotic agents; Z91.018 Allergy to other foods; Z53.8 Procedure and treatment not carried out for other reasons
CPT/HCPCS: 99284; 64505; 96374; 96375 ×4; 96376; 96361; J2060; J1200; J2405; J2001; J1170; J1642

== ENCOUNTER 2019-05-31 21:03 | Observation (INO) | payer OTHER ==
[2019-05-31] MEDS ORDERED: HYDROmorphone 1 MG/ML 1 ML SYRINGE IVP STA (21:45)
[2019-05-31] MEDS ORDERED: LORazepam 2 MG/ML INJ IV STA (21:45)
[2019-05-31] MEDS ORDERED: SODIUM CHLORIDE 0.9% 1,000 ML IV STA ×2 (21:45)
[2019-05-31] MEDS ORDERED: ONDANSETRON 4 MG/2 ML VIAL IVP STA (21:45)
--- NOTE | 2019-05-31 21:45 | ED ---
Chest Pain HPI - General Chief Complaint: Chest Pain Stated Complaint: chest pain Time Seen by Provider: 05/31/19 21:23 Source: patient, RN notes reviewed, old records reviewed Mode of arrival: ambulatory Limitations: no limitations - History of Present Illness Initial Comments: This is a 49-year-old female DF for evaluation of multiple complaints chest pain and headache. Severe chest pain which is a rib before heaviness feels like something is sitting on her chest. Mild nausea no vomiting but she does have some nausea related to her headache which is chronic issue for her. Patient has chronic headaches. No recent change significant change in medications. No recent travel history no traumas. No fever cough or congestion no prior evaluation for heart disease of chest pain MD Complaint: chest pain -: days(s) Onset: during rest Pain Location: left chest Pain Radiation: LUE Severity: moderate Severity scale (1-10): 7 Quality: tightness, aching, heaviness Consistency: constant Improves With: nothing Worsens With: nothing Anginal Symptoms: dyspnea Other Symptoms: cough Treatments Prior to Arrival: none - Related Data Home Medications Medication Instructions Recorded Confirmed Atorvastatin [Lipitor] 40 mg PO HS 04/02/17 04/27/19 Lacosamide [Vimpat] 100 mg PO BID 06/04/17 04/27/19 HYDROcodone/APAP 7.5-325MG [[place] 1 tab PO TID PRN 07/06/17 04/27/19 7.5-325] amLODIPine [Norvasc] 5 mg PO DAILY 10/26/18 04/27/19 Ergocalciferol [Vitamin D2] 50,000 unit PO WE 01/09/19 04/27/19 Cyclobenzaprine [Flexeril] 5 mg PO DAILY PRN 04/27/19 04/27/19 Previous Rx's Medication Instructions Recorded Ondansetron Odt [Zofran Odt] 4 mg PO Q8HR PRN #30 tab 05/03/19 Allergies Allergy/AdvReac Type Severity Reaction Status Date / Time dihydroergotamine Allergy Unknown Unknown Verified 05/26/19 16:38 [From Migranal] gabapentin [From Neurontin] Allergy Itching/Swe Verified 05/26/19 16:38 lling latex Allergy Anaphylaxis Verified 05/26/19 16:38 naproxen [From Naprosyn] Allergy Anaphylaxis Verified 05/26/19 16:38 Penicillins Allergy Anaphylaxis Verified 05/26/19 16:38 prednisone Allergy Swelling Verified 05/26/19 16:38 quetiapine fumarate Allergy Itching, Verified 05/26/19 16:38 [From Seroquel] leg cramps rofecoxib [From Vioxx] Allergy Itching, Verified 05/26/19 16:38 leg cramps terfenadine [From Seldane] Allergy Rash/Hives Verified 05/26/19 16:38 tramadol Allergy Nausea & Verified 05/26/19 16:38 Vomiting/LEG CRAMPS/HEART FLUTTERS calcium carbonate [From DHEA] AdvReac Chest Pain Verified 05/26/19 16:38 calcium phosphate,dibasic AdvReac Chest Pain Verified 05/26/19 16:38 [From DHEA] clindamycin AdvReac muscle Verified 05/26/19 16:38 cramps clonidine AdvReac fast Verified 05/26/19 16:38 heartbeat, migraine dextromethorphan HBr AdvReac face/neck Verified 05/26/19 16:38 [From NyQuil] flushing diazepam [From Valium] AdvReac Nausea & Verified 05/26/19 16:38 Vomiting divalproex sodium AdvReac Nausea & Verified 05/26/19 16:38 [From Depakote] Vomiting doxylamine [From NyQuil] AdvReac face "beet Verified 05/26/19 16:38 red", elevated temp. ibuprofen [From Motrin] AdvReac abdominal Verified 05/26/19 16:38 & muscle cramps indomethacin [From Indocin] AdvReac Abdominal Verified 05/26/19 16:38 Pain,N/V ketorolac tromethamine AdvReac "built up Verified 05/26/19 16:38 [From Toradol] in system", had to be given something to reverse lorazepam [From Ativan] AdvReac Nausea & Verified 05/26/19 16:38 Vomiting metoclopramide HCl AdvReac muscle Verified 05/26/19 16:38 [From Reglan] cramps nortriptyline [From Pamelor] AdvReac Chest Pain Verified 05/26/19 16:38 prasterone (DHEA) [From DHEA] AdvReac Chest Pain Verified 05/26/19 16:38 prochlorperazine AdvReac leg Verified 05/26/19 16:38 [From Compazine] cramping propranolol AdvReac Chest Pain Verified 05/26/19 16:38 pseudoephedrine HCl AdvReac face "beet Verified 05/26/19 16:38 [From NyQuil] red", elevated temp. quetiapine [From Seroquel] AdvReac leg Verified 05/26/19 16:38 cramping sumatriptan [From Imitrex] AdvReac migrane Verified 05/26/19 16:38 sumatriptan succinate AdvReac migrane Verified 05/26/19 16:38 [From Imitrex] topiramate [From Topamax] AdvReac "built up Verified 05/26/19 16:38 in system", had to be given something to reverse trazodone AdvReac "built up Verified 05/26/19 16:38 in system", had to be given something to reverse zolpidem tartrate AdvReac "Became Verified 05/26/19 16:38 [From Ambien] violent with no memory" zonisamide [From Zonegran] AdvReac inability Verified 05/26/19 16:38 to eat artificial sweetener AdvReac SEVERE Uncoded 05/26/19 16:38 MIGRAINE HEADACHE Review of Systems ROS Statement: Those systems with pertinent positive or pertinent negative responses have been documented in the HPI. ROS Other: All systems not noted in ROS Statement are negative. EKG Findings - EKG Comments: EKG Findings:: EKG shows sinus tachycardia rate 111, CO 160, QRS 76, QTc 473 Past Medical History Past Medical History: Hyperlipidemia, Hypertension, Seizure Disorder Additional Past Medical History / Comment(s): Migraines, viral meningitis x3 as a child, 1995, 2000, chronic back pain, nerve blocks 08/2016 and 12/2016. Last seizure 07/22/2017, "ABSENT SEIZURES. HX TACHYCARDIA, GB/CIPD, PTSD History of Any Multi-Drug Resistant Organisms: None Reported Past Surgical History: Appendectomy, Section, Cholecystectomy, Hernia Repair, Hysterectomy, Orthopedic Surgery, Tonsillectomy, Tubal Ligation Additional Past Surgical History / Comment(s): Hiatal Hernia, umbilical hernia repair, left rotator cuff repair, bilateral knee scopes, pain clinic procedures- occipital nerve block on 01/05/2017. abd exploratory sx(endometreosis), 3 abd scopes 1981, 1989, 1991), lumbar puncture. EGD. nerve biopsy, Past Anesthesia/Blood Transfusion Reactions: No Reported Reaction Additional Past Anesthesia/Blood Transfusion Reaction / Comment(s): Claustrophobic Past Psychological History: Anxiety, Bipolar, Panic Disorder, PTSD Smoking Status: Current every day smoker Past Alcohol Use History: None Reported Past Drug Use History: None Reported - Past Family History Mother Family Medical History: Cancer, Dementia, Diabetes Mellitus, GERD/Reflux, Hyperlipidemia, Hypertension, Thyroid Disorder Additional Family Medical History / Comment(s): Quad CABG, cardiac stents, toes ampuated. Father History Unknown: Yes Family Medical History: No Reported History General Exam Limitations: no limitations General appearance: alert, in no apparent distress Head exam: Present: atraumatic, normocephalic, normal inspection Eye exam: Present: normal appearance, PERRL, EOMI. Absent: scleral icterus, conjunctival injection, periorbital swelling ENT exam: Present: normal exam, mucous membranes moist Neck exam: Present: normal inspection. Absent: tenderness, meningismus, lymph adenopathy Respiratory exam: Present: normal lung sounds bilaterally. Absent: respiratory distress, wheezes, rales, rhonchi, stridor Cardiovascular Exam: Present: normal rhythm, tachycardia, normal heart sounds. Absent: systolic murmur, diastolic murmur, rubs, gallop, clicks GI/Abdominal exam: Present: soft, normal bowel sounds. Absent: distended, tenderness, guarding, rebound, rigid Extremities exam: Present: normal inspection, full ROM, normal capillary refill. Absent: tenderness, pedal edema, joint swelling, calf tenderness Back exam: Present: normal inspection Neurological exam: Present: alert, oriented X3, CN II-XII intact Psychiatric exam: Present: normal affect, normal mood Skin exam: Present: warm, dry, intact, normal color. 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 Mccoy agreeable for admission Chest Pain MDM - MDM 49 female to the ER for evaluation positive for chest pain. Patient has persistent chest pain here in the ER chronic headache. Patient be admitted for chest pain observation and symptom management Disposition Clinical Impression: Atypical chest pain, Migraine without aura, Chest pain, Headache Disposition: ADMITTED IP TO THIS HOSP Condition: Fair Is patient prescribed a controlled substance at d/c from ED?: No Referrals: José Reece MD [Primary Care Provider] - 1-2 days
[2019-05-31 22:25] LABS: Basophils % (A) 1 %; Eosinophils # (A) 0.2 k/uL (0-0.7); Eosinophils % (A) 2 %; HCT 37.8 % (34.0-46.0); HGB 12.6 gm/dL (11.4-16.0); Lymphocytes # (A) 2.3 k/uL (1.0-4.8); Lymphocytes % (A) 30 %; MCH 31.8 pg (25.0-35.0); MCHC 33.3 g/dL (31.0-37.0); MCV 95.3 fL (80.0-100.0); Mean Platelet Volume 8.9; Monocytes # (A) 0.5 k/uL (0-1.0); Monocytes % (A) 7 %; Neutrophils # (A) 4.6 k/uL (1.3-7.7); Neutrophils % (A) 59 %; Platelet Count 217 k/uL (150-450); RBC 3.97 m/uL (3.80-5.40); RDW 13.2 % (11.5-15.5); WBC 7.9 k/uL (3.8-10.6)
[2019-05-31 22:34] LABS: ALT 22 U/L (4-34); AST 33 U/L (14-36); African American GFR (CKD) >90 (>60 ml/min/1.73 sqM); Alkaline Phosphatase 147 U/L (38-126); Anion Gap 7 mmol/L; Blood Urea Nitrogen 8 mg/dL (7-17); Carbon Dioxide 31 mmol/L (22-30); Chloride 103 mmol/L (98-107); Glucose 79 mg/dL (74-99); Magnesium 2.1 mg/dL (1.6-2.3); Non-African American GFR(CKD) >90 (>60 ml/min/1.73 sqM); Potassium 3.9 mmol/L (3.5-5.1); Sodium 141 mmol/L (137-145); Total Bilirubin 0.2 mg/dL (0.2-1.3); Total Protein 6.8 g/dL (6.3-8.2)
[2019-05-31 22:35] LABS: INR 0.9 (<1.2); Partial Thromboplastin Time 32.1 sec (22.0-30.0); Prothrombin Time 9.5 sec (9.0-12.0)
[2019-05-31 22:40] LABS: Valproic Acid (Depakene) 69.5 ug/mL
[2019-05-31] MEDS ORDERED: NITROGLYCERIN SL TABS 0.4 MG TAB SUBLINGUAL PRN (23:18)
[2019-05-31] MEDS ORDERED: ASPIRIN 81 MG PO STA (23:18)
[2019-05-31] MEDS ORDERED: diphenhydrAMINE 50 MG/ML 1 ML VIAL IVP PRN (23:19)
[2019-05-31] MEDS: SODIUM CHLORIDE 0.9% 1,000 ML IV SCH (23:35)
[2019-06-01] MEDS: HYDROmorphone 1 MG/ML 1 ML SYRINGE IVP PRN ×2 (04:24→10:03)
[2019-06-01 05:22] LABS: Cholesterol 185 mg/dL (<200); HDL Cholesterol 88 mg/dL (40-60); LDL Cholesterol,Calculated 76 mg/dL (0-99); Triglycerides 106 mg/dL (<150)
[2019-06-01] MEDS ORDERED: ASPIRIN 325 MG TAB PO SCH (09:00)
--- NOTE | 2019-06-01 10:01 | XR ---
EXAMINATION TYPE: XR chest 2V DATE OF EXAM: 06/01/2019 COMPARISON: Prior chest x-ray 06/24/2017 HISTORY: Cough and chest pain TECHNIQUE: Frontal and lateral views of the chest are obtained. FINDINGS: Patient is rotated towards the left. There are overlying cardiac leads. There is a port in the right pectoral region, right internal jugular vein approach with distal tip overlying the region of the cavoatrial junction. Probable subsegmental basilar atelectatic changes are present. There is no evident pneumothorax or pleural effusion. Heart size is likely stable accounting for differences i n technique. Surgical clips noted in the upper abdomen. IMPRESSION: Subsegmental basilar atelectatic changes, correlate to exclude pneumonia and follow-up a s indicated.
[2019-06-01] MEDS: SODIUM CHLORIDE 0.9% 1,000 ML IV SCH (10:02)
[2019-06-01] MEDS ORDERED: DOBUTamine DRIP for NUC MED 500 MG in DEXTROSE/WATER 1 250ML.BAG IV ONE (10:29)
[2019-06-01] MEDS: amLODIPine 5 MG TAB PO SCH (10:58)
[2019-06-01] MEDS ORDERED: hydrOXYzine PAMOATE 25 MG CAP PO PRN (11:30)
[2019-06-01] MEDS ORDERED: CYCLOBENZAPRINE 5 MG TAB PO PRN (11:30)
[2019-06-01] MEDS: LACOSAMIDE 50 MG TABLET PO SCH ×2 (12:12→20:34)
--- NOTE | 2019-06-01 12:23 | P.CRDCN ---
History of Present Illness History of present illness: HISTORY OF PRESENTING ILLNESS This is a pleasant 49-year-old female past medical history significant for hypertension, dyslipidemia, seizure disorder, chronic back pain and chronic nicotine dependence. She denies prior history of coronary artery disease and does not follow in the office with a publication distributor. We have been asked to see in consultation for chest pain. She states since Friday she has been experiencing a heavy pressure sensation in the midsternal/epigastric region with radiation through to her back at times. She has no radiation to the arm, neck or jaw. Her discomfort is associated with some shortness of breath, nausea and headache. She states she has had a migraine headache since around the same time on Friday. Her pain is mildly exacerbated by inspiration but not reproducible on palpation. She is currently chest pain-free however has a significant headache and photophobia. DIAGNOSTICS EKG reveals sinus tachycardia heart rate of 111 with no evidence of ischemic changes. Chest xray subsegmental basilar atelectatic changes. Laboratory reviewed, CBC unremarkable, d-dimer 0.55, sodium 141, potassium 3.9, creatinine 0.72, magnesium 2.1, cardiac enzymes negative 3, alkaline phosphatase 147, LDL 76 and HDL 88. Current cardiac medications include amlodipine 5 mg daily and atorvastatin 40 mg at bedtime. REVIEW OF SYSTEMS At the time of my exam: CONSTITUTIONAL: Denies fever or chills. CARDIOVASCULAR: Denies chest pain, shortness of breath, orthopnea, PND or palpitations. RESPIRATORY: Denies cough. GASTROINTESTINAL: Denies abdominal pain, diarrhea, constipation, nausea or vomiting. MUSCULOSKELETAL: Denies myalgias. NEUROLOGIC: Complains of headache. Denies numbness, tingling or weakness. ENDOCRINE: Denies fatigue, weight change, polydipsia or polyurina. GENITOURINARY: Denies burning, hematuria or urgency with micturation. HEMATOLOGIC: Denies history of anemia or bleeding. PHYSICAL EXAMINATION Blood pressure 149/101 heart rate 114 afebrile and maintaining oxygen saturation on nasal cannula. CONSTITUTIONAL: No apparent distress. HEENT: Head is normocephalic. Pupils are equal, round. Sclerae anicteric. Mucous membranes of the mouth are moist. No JVD. No carotid bruit. CHEST EXAMINATION: Lungs are clear to auscultation. No chest wall tenderness is noted on palpation or with deep breathing. HEART EXAMINATION: Regular rate and rhythm. S1, S2 heard. No murmurs, gallops or rub. ABDOMEN: Soft, nontender. Positive bowel sounds. EXTREMITIES: 2+ peripheral pulses, no lower extremity edema and no calf tenderness. NEUROLOGIC EXAMINATION: Patient is awake, alert and oriented x3. ASSESSMENT Chest pain, atypical for angina. Pleuritic features. An acute event has been ruled out. Headache Hypertension Dyslipidemia Chronic nicotine dependence Seizure disorder PLAN An acute coronary event has been ruled out. Obtain 2D echocardiogram and doppler study to assess cardiac structure and function. Medical evaluation and treatment of headache. We will perform dobutamine stress echo tomorrow once her headache has resolved. Check TSH. Thank you kindly for this consultation. Nurse Practitioner note has been reviewed, I agree with a documented findings and plan of care. Patient was seen and examined. Past Medical History Past Medical History: Hyperlipidemia, Hypertension, Seizure Disorder Additional Past Medical History / Comment(s): Migraines, viral meningitis x3 as a child, 1995, 2000, chronic back pain, nerve blocks 08/2016 and 12/2016. Last seizure 05/26/19, "ABSENT SEIZURES. HX TACHYCARDIA, GB/CIPD, PTSD History of Any Multi-Drug Resistant Organisms: None Reported Past Surgical History: Appendectomy, Section, Cholecystectomy, Hernia Repair, Hysterectomy, Orthopedic Surgery, Tonsillectomy, Tubal Ligation Additional Past Surgical History / Comment(s): Hiatal Hernia, umbilical hernia repair, left rotator cuff repair, bilateral knee scopes, pain clinic procedures- occipital nerve block. abd exploratory sx(endometreosis), 3 abd scopes 1981, 1989, 1991), lumbar puncture. EGD. nerve biopsy, Past Anesthesia/Blood Transfusion Reactions: No Reported Reaction Additional Past Anesthesia/Blood Transfusion Reaction / Comment(s): Claustrophobic Past Psychological History: Anxiety, Bipolar, Panic Disorder, PTSD Smoking Status: Current every day smoker Past Alcohol Use History: None Reported Additional Past Alcohol Use History / Comment(s): SMOKED SINCE 1982, WAS 1 PPD, NOW 4-5 CIGARETTES PER DAY. Past Drug Use History: None Reported - Past Family History Mother Family Medical History: Cancer, Dementia, Diabetes Mellitus, GERD/Reflux, Hyperlipidemia, Hypertension, Thyroid Disorder Additional Family Medical History / Comment(s): Quad CABG, cardiac stents, toes ampuated. Father History Unknown: Yes Family Medical History: No Reported History Medications and Allergies Home Medications Medication Instructions Recorded Confirmed Type Atorvastatin [Lipitor] 40 mg PO HS 04/02/17 06/01/19 History Lacosamide [Vimpat] 100 mg PO BID 06/04/17 06/01/19 History HYDROcodone/APAP 7.5-325MG [[place] 1 tab PO TID PRN 07/06/17 06/01/19 History 7.5-325] amLODIPine [Norvasc] 5 mg PO DAILY 10/26/18 06/01/19 History Ergocalciferol [Vitamin D2] 50,000 unit PO WE 01/09/19 06/01/19 History Cyclobenzaprine [Flexeril] 5 mg PO DAILY PRN 04/27/19 06/01/19 History Divalproex ER [Depakote ER] 500 mg PO HS 06/01/19 06/01/19 History hydrOXYzine PAMOATE [Vistaril] 25 mg PO BID PRN 06/01/19 06/01/19 History Allergies Allergy/AdvReac Type Severity Reaction Status Date / Time dihydroergotamine Allergy Unknown Unknown Verified 06/01/19 09:54 [From Migranal] gabapentin [From Neurontin] Allergy Itching/Swe Verified 06/01/19 09:54 lling latex Allergy Anaphylaxis Verified 06/01/19 09:54 naproxen [From Naprosyn] Allergy Anaphylaxis Verified 06/01/19 09:54 Penicillins Allergy Anaphylaxis Verified 06/01/19 09:54 prednisone Allergy Swelling Verified 06/01/19 09:54 quetiapine fumarate Allergy Itching, Verified 06/01/19 09:54 [From Seroquel] leg cramps rofecoxib [From Vioxx] Allergy Itching, Verified 06/01/19 09:54 leg cramps terfenadine [From Seldane] Allergy Rash/Hives Verified 06/01/19 09:54 tramadol Allergy Nausea & Verified 06/01/19 09:54 Vomiting/LEG CRAMPS/HEART FLUTTERS calcium carbonate [From DHEA] AdvReac Chest Pain Verified 06/01/19 09:54 calcium phosphate,dibasic AdvReac Chest Pain Verified 06/01/19 09:54 [From DHEA] clindamycin AdvReac muscle Verified 06/01/19 09:54 cramps clonidine AdvReac fast Verified 06/01/19 09:54 heartbeat, migraine dextromethorphan HBr AdvReac face/neck Verified 06/01/19 09:54 [From NyQuil] flushing diazepam [From Valium] AdvReac Nausea & Verified 06/01/19 09:54 Vomiting divalproex sodium AdvReac Nausea & Verified 06/01/19 09:54 [From Depakote] Vomiting doxylamine [From NyQuil] AdvReac face "beet Verified 06/01/19 09:54 red", elevated temp. ibuprofen [From Motrin] AdvReac abdominal Verified 06/01/19 09:54 & muscle cramps indomethacin [From Indocin] AdvReac Abdominal Verified 06/01/19 09:54 Pain,N/V ketorolac tromethamine AdvReac "built up Verified 06/01/19 09:54 [From Toradol] in system", had to be given something to reverse lorazepam [From Ativan] AdvReac Nausea & Verified 06/01/19 09:54 Vomiting metoclopramide HCl AdvReac muscle Verified 06/01/19 09:54 [From Reglan] cramps nortriptyline [From Pamelor] AdvReac Chest Pain Verified 06/01/19 09:54 prasterone (DHEA) [From DHEA] AdvReac Chest Pain Verified 06/01/19 09:54 prochlorperazine AdvReac leg Verified 06/01/19 09:54 [From Compazine] cramping propranolol AdvReac Chest Pain Verified 06/01/19 09:54 pseudoephedrine HCl AdvReac face "beet Verified 06/01/19 09:54 [From NyQuil] red", elevated temp. quetiapine [From Seroquel] AdvReac leg Verified 06/01/19 09:54 cramping sumatriptan [From Imitrex] AdvReac migrane Verified 06/01/19 09:54 sumatriptan succinate AdvReac migrane Verified 06/01/19 09:54 [From Imitrex] topiramate [From Topamax] AdvReac "built up Verified 06/01/19 09:54 in system", had to be given something to reverse trazodone AdvReac "built up Verified 06/01/19 09:54 in system", had to be given something to reverse zolpidem tartrate AdvReac "Became Verified 06/01/19 09:54 [From Ambien] violent with no memory" zonisamide [From Zonegran] AdvReac inability Verified 06/01/19 09:54 to eat artificial sweetener AdvReac SEVERE Uncoded 06/01/19 00:30 MIGRAINE HEADACHE Physical Exam Vitals: Vital Signs Temp Pulse Pulse Pulse Resp BP BP 06/01/19 07:41 97.6 F 110 H 18 152/98 06/01/19 05:00 97.5 F L 100 18 117/80 06/01/19 00:00 98.3 F 108 H 18 144/92 05/31/19 22:48 101 H 05/31/19 21:22 97.1 F L 116 H 24 145/100 Pulse Ox 06/01/19 07:41 94 L 06/01/19 05:00 93 L 06/01/19 00:00 97 05/31/19 22:48 05/31/19 21:22 97 Intake and Output 05/31/19 06/01/19 06/01/19 22:59 06:59 14:59 Other: Voiding Method Toilet # Voids 1 Weight 79.832 kg 82.6 kg Results 05/31/19 22:11 05/31/19 22:11 Cardiac Enzymes 05/31/19 05/31/19 06/01/19 Range/Units 22:11 22:11 04:45 AST 33 (14-36) U/L Troponin I <0.012 <0.012 (0.000-0.034) ng/mL Coagulation 05/31/19 Range/Units 22:11 PT 9.5 (9.0-12.0) sec APTT 32.1 H (22.0-30.0) sec Lipids 06/01/19 Range/Units 04:45 Triglycerides 106 (<150) mg/dL Cholesterol 185 (<200) mg/dL HDL Cholesterol 88 H (40-60) mg/dL CBC 05/31/19 Range/Units 22:11 WBC 7.9 (3.8-10.6) k/uL RBC 3.97 (3.80-5.40) m/uL Hgb 12.6 (11.4-16.0) gm/dL Hct 37.8 (34.0-46.0) % Plt Count 217 (150-450) k/uL Comprehensive Metabolic Panel 05/31/19 Range/Units 22:11 Sodium 141 (137-145) mmol/L Potassium 3.9 (3.5-5.1) mmol/L Chloride 103 (98-107) mmol/L Carbon Dioxide 31 H (22-30) mmol/L BUN 8 (7-17) mg/dL Creatinine 0.72 (0.52-1.04) mg/dL Glucose 79 (74-99) mg/dL Calcium 9.0 (8.4-10.2) mg/dL AST 33 (14-36) U/L ALT 22 (4-34) U/L Alkaline Phosphatase 147 H (38-126) U/L Total Protein 6.8 (6.3-8.2) g/dL Albumin 4.0 (3.5-5.0) g/dL Current Medications Generic Name Dose Route Start Last Admin Trade Name Freq PRN Reason Stop Dose Admin Aspirin 325 mg 06/01/19 09:00 Aspirin PO DAILY PAMELA Diphenhydramine HCl 25 mg 05/31/19 23:19 Benadryl IVP Q6HR PRN Allergy Symptoms Hydromorphone HCl 1 mg 05/31/19 23:19 06/01/19 04:24 Dilaudid IVP 1 mg Q4HR PRN Administration Pain Sodium Chloride 1,000 mls @ 100 mls/hr 05/31/19 23:30 05/31/19 23:35 Saline 0.9% IV Not Given .Q10H PAMELA Lorazepam 1 mg 05/31/19 23:19 Ativan IV Q4HR PRN Anxiety Nitroglycerin 0.4 mg 05/31/19 23:18 Nitrostat SUBLINGUAL Q5M PRN Chest Pain Intake and Output 05/31/19 06/01/19 06/01/19 22:59 06:59 14:59 Other: Voiding Method Toilet # Voids 1 Weight 79.832 kg 82.6 kg 05/31/19 22:11 05/31/19 22:11
[2019-06-01 13:23] LABS: ABG HCO3 25 mmol/L (21-25); ABG Oxygen Saturation 92.5 % (94-97); ABG PCO2 40 mmHg (35-45); ABG PO2 62 mmHg (83-108); ABG TCO2 26 mmol/L (19-24); Allen Test Performed? Yes
--- NOTE | 2019-06-01 13:35 | P.CNPUL ---
History of Present Illness Consult date: 06/01/19 Requesting physician: Edwin Mccoy Reason for consult: dyspnea Chief complaint: Chest pain, headaches, shortness of breath History of present illness: This is a 49-year-old female patient who follows with Dr. Reece as her primary care provider. She has a history of hypertension, hyperlipidemia, seizure disorder, bipolar disorder, chronic and ongoing tobacco dependence, multiple ALLERGIES, Pike Cárdenas. She presented here to the emergency room last evening with multiple complaints of headaches, chest discomfort, rib pain, nausea. She was admitted to the observation unit for atypical chest pain. We are consulted today for her complaints of difficulty in breathing and difficulty in taking a deep breath. Chest x-ray mainly clear some atelectatic changes in lung bases. Maintaining O2 saturations in the 90s on room air. She's afebrile. Tachycardic. Hypertensive. White count 7.9. Hemoglobin 12.6. Sodium 141. Potassium 3.9. Creatinine 0.72. Bicarb 31. Troponins negative 3. Valproic acid 69.5. She had been seen and evaluated by cardiology. Planning a dobutamine stress echocardiogram tomorrow. Echocardiogram pending. Review of Systems REVIEW OF SYSTEMS: CONSTITUTIONAL: Denies any recent significant weight loss or weight gain. EYES: Denies change in vision. EARS, NOSE, MOUTH, THROAT: Positive for headaches, denies sore throat. CARDIOVASCULAR: Positive for chest pain, palpitations no syncopal episodes. RESPIRATORY: Positive for shortness of breath, no cough, congestion or hemoptysis. GASTROINTESTINAL: Denies change in appetite, denies abdominal pain GENITOURINARY: Denies hematuria, denies infections. MUSKULOSKELETAL: Denies pain, denies swelling. INTEGUMENTARY: Denies rash, denies eczema. NEUROLOGICAL: Denies recent memory loss, no recent seizure activity. PSYCHIATRIC: Positive for anxiety,depression. HEMATOLOGIC/LYMPHATIC: Denies anemia, denies enlarged lymph nodes. Past Medical History Past Medical History: Hyperlipidemia, Hypertension, Seizure Disorder Additional Past Medical History / Comment(s): Migraines, viral meningitis x3 as a child, 1995, 2000, chronic back pain, nerve blocks 08/2016 and 12/2016. Last seizure 05/26/19, "ABSENT SEIZURES. HX TACHYCARDIA, GB/CIPD, PTSD History of Any Multi-Drug Resistant Organisms: None Reported Past Surgical History: Appendectomy, Section, Cholecystectomy, Hernia Repair, Hysterectomy, Orthopedic Surgery, Tonsillectomy, Tubal Ligation Additional Past Surgical History / Comment(s): Hiatal Hernia, umbilical hernia repair, left rotator cuff repair, bilateral knee scopes, pain clinic procedures- occipital nerve block. abd exploratory sx(endometreosis), 3 abd scopes 1981, 1989, 1991), lumbar puncture. EGD. nerve biopsy, Past Anesthesia/Blood Transfusion Reactions: No Reported Reaction Additional Past Anesthesia/Blood Transfusion Reaction / Comment(s): Claustrophobic Past Psychological History: Anxiety, Bipolar, Panic Disorder, PTSD Smoking Status: Current every day smoker Past Alcohol Use History: None Reported Additional Past Alcohol Use History / Comment(s): SMOKED SINCE 1982, WAS 1 PPD, NOW 4-5 CIGARETTES PER DAY. Past Drug Use History: None Reported - Past Family History Mother Family Medical History: Cancer, Dementia, Diabetes Mellitus, GERD/Reflux, Hyperlipidemia, Hypertension, Thyroid Disorder Additional Family Medical History / Comment(s): Quad CABG, cardiac stents, toes ampuated. Father History Unknown: Yes Family Medical History: No Reported History Medications and Allergies Home Medications Medication Instructions Recorded Confirmed Type Atorvastatin [Lipitor] 40 mg PO HS 04/02/17 06/01/19 History Lacosamide [Vimpat] 100 mg PO BID 06/04/17 06/01/19 History HYDROcodone/APAP 7.5-325MG [[place] 1 tab PO TID PRN 07/06/17 06/01/19 History 7.5-325] amLODIPine [Norvasc] 5 mg PO DAILY 10/26/18 06/01/19 History Ergocalciferol [Vitamin D2] 50,000 unit PO WE 01/09/19 06/01/19 History Cyclobenzaprine [Flexeril] 5 mg PO DAILY PRN 04/27/19 06/01/19 History Divalproex ER [Depakote ER] 500 mg PO HS 06/01/19 06/01/19 History hydrOXYzine PAMOATE [Vistaril] 25 mg PO BID PRN 06/01/19 06/01/19 History Allergies Allergy/AdvReac Type Severity Reaction Status Date / Time dihydroergotamine Allergy Unknown Unknown Verified 06/01/19 09:54 [From Migranal] gabapentin [From Neurontin] Allergy Itching/Swe Verified 06/01/19 09:54 lling latex Allergy Anaphylaxis Verified 06/01/19 09:54 naproxen [From Naprosyn] Allergy Anaphylaxis Verified 06/01/19 09:54 Penicillins Allergy Anaphylaxis Verified 06/01/19 09:54 prednisone Allergy Swelling Verified 06/01/19 09:54 quetiapine fumarate Allergy Itching, Verified 06/01/19 09:54 [From Seroquel] leg cramps rofecoxib [From Vioxx] Allergy Itching, Verified 06/01/19 09:54 leg cramps terfenadine [From Seldane] Allergy Rash/Hives Verified 06/01/19 09:54 tramadol Allergy Nausea & Verified 06/01/19 09:54 Vomiting/LEG CRAMPS/HEART FLUTTERS calcium carbonate [From DHEA] AdvReac Chest Pain Verified 06/01/19 09:54 calcium phosphate,dibasic AdvReac Chest Pain Verified 06/01/19 09:54 [From DHEA] clindamycin AdvReac muscle Verified 06/01/19 09:54 cramps clonidine AdvReac fast Verified 06/01/19 09:54 heartbeat, migraine dextromethorphan HBr AdvReac face/neck Verified 06/01/19 09:54 [From NyQuil] flushing diazepam [From Valium] AdvReac Nausea & Verified 06/01/19 09:54 Vomiting divalproex sodium AdvReac Nausea & Verified 06/01/19 09:54 [From Depakote] Vomiting doxylamine [From NyQuil] AdvReac face "beet Verified 06/01/19 09:54 red", elevated temp. ibuprofen [From Motrin] AdvReac abdominal Verified 06/01/19 09:54 & muscle cramps indomethacin [From Indocin] AdvReac Abdominal Verified 06/01/19 09:54 Pain,N/V ketorolac tromethamine AdvReac "built up Verified 06/01/19 09:54 [From Toradol] in system", had to be given something to reverse lorazepam [From Ativan] AdvReac Nausea & Verified 06/01/19 09:54 Vomiting metoclopramide HCl AdvReac muscle Verified 06/01/19 09:54 [From Reglan] cramps nortriptyline [From Pamelor] AdvReac Chest Pain Verified 06/01/19 09:54 prasterone (DHEA) [From DHEA] AdvReac Chest Pain Verified 06/01/19 09:54 prochlorperazine AdvReac leg Verified 06/01/19 09:54 [From Compazine] cramping propranolol AdvReac Chest Pain Verified 06/01/19 09:54 pseudoephedrine HCl AdvReac face "beet Verified 06/01/19 09:54 [From NyQuil] red", elevated temp. quetiapine [From Seroquel] AdvReac leg Verified 06/01/19 09:54 cramping sumatriptan [From Imitrex] AdvReac migrane Verified 06/01/19 09:54 sumatriptan succinate AdvReac migrane Verified 06/01/19 09:54 [From Imitrex] topiramate [From Topamax] AdvReac "built up Verified 06/01/19 09:54 in system", had to be given something to reverse trazodone AdvReac "built up Verified 06/01/19 09:54 in system", had to be given something to reverse zolpidem tartrate AdvReac "Became Verified 06/01/19 09:54 [From Ambien] violent with no memory" zonisamide [From Zonegran] AdvReac inability Verified 06/01/19 09:54 to eat artificial sweetener AdvReac SEVERE Uncoded 06/01/19 00:30 MIGRAINE HEADACHE Physical Exam Vitals: Vital Signs Temp Pulse Pulse Pulse Resp BP BP 06/01/19 11:30 97.7 F 114 H 18 149/101 06/01/19 07:41 97.6 F 110 H 18 152/98 06/01/19 05:00 97.5 F L 100 18 117/80 06/01/19 00:00 98.3 F 108 H 18 144/92 05/31/19 22:48 101 H 05/31/19 21:22 97.1 F L 116 H 24 145/100 Pulse Ox 06/01/19 11:30 97 06/01/19 07:41 94 L 06/01/19 05:00 93 L 06/01/19 00:00 97 05/31/19 22:48 05/31/19 21:22 97 Intake and Output 05/31/19 06/01/19 06/01/19 22:59 06:59 14:59 Intake Total 240 Balance 240 Intake: Oral 240 Other: Voiding Method Toilet Toilet # Voids 1 Weight 79.832 kg 82.6 kg GENERAL EXAM: Alert, 49-year-old female, on 2 L nasal cannula comfortable in no apparent distress. HEAD: Normocephalic. EYES: Normal reaction of pupils, equal size. NOSE: Clear with pink turbinates. THROAT: No erythema or exudates. NECK: No masses, no JVD. CHEST: No chest wall deformity. LUNGS: Equal air entry with no crackles, wheeze, rhonchi or dullness. CVS: S1 and S2 normal with no audible murmur, regular rhythm. ABDOMEN: No hepatosplenomegaly, normal bowel sounds, no guarding or rigidity. SPINE: No scoliosis or deformity SKIN: No rashes CENTRAL NERVOUS SYSTEM: No focal deficits, tone is normal in all 4 extremities. EXTREMITIES: There is no peripheral edema. No clubbing, no cyanosis. Peripheral pulses are intact. Results - Laboratory Findings CBC and BMP: 05/31/19 22:11 05/31/19 22:11 PT/INR, D-dimer PT 9.5 sec (9.0-12.0) 05/31/19 22:11 INR 0.9 (<1.2) 05/31/19 22:11 D-Dimer 0.55 mg/L FEU (<0.60) 06/01/19 09:28 Abnormal lab findings: Abnormal Labs 05/31/19 05/31/19 06/01/19 22:11 22:11 04:45 APTT 32.1 H Carbon Dioxide 31 H Alkaline Phosphatase 147 H HDL Cholesterol 88 H - Diagnostic Findings Chest x-ray: image reviewed Assessment and Plan Assessment: 1 Atypical chest pain 2 Cephalgia 3 Dyspnea of unclear etiology, poor inspiratory effort 4 Chronic and ongoing tobacco dependence 5 History of Guillain-Cárdenas syndrome 6 History of seizure disorder 7 Hypertension 8 Hyperlipidemia 9 Bipolar disorder 10 Post traumatic stress disorder 11 History of migraines Plan: The patient was seen and evaluated by Dr. Gordno. Chest x-ray and labs reviewed. Arterial blood gases reviewed. We'll continue oxygen at 2 L/m per nasal cannula. Await NIF test. Add incentive spirometer. D-dimer negative. Tw o-dimensional echocardiogram is pending. Dobutamine stress echo planned for tomorrow per cardiology. We will continue to follow and make further recommendations based on her clinical status. I, the cosigning physician, performed a history & physical examination of the patient. Lungs sounds are clear, diminished. Maintaining good O2 saturations in the 90s on 2 L/m per nasal cannula. I discussed the assessment and plan of care with my nurse practitioner, Ivis Arenas. I attest to the above consultation as dictated by her. Time with Patient: Greater than 30
[2019-06-01] MEDS: HYDROcodone/APAP 7.5-325MG 1 EACH TAB PO PRN ×2 (14:01→23:00)
--- NOTE | 2019-06-01 15:11 | ECHOF ---
Referral Reason:cp sob MEASUREMENTS -------- HEIGHT: 160.0 cm WEIGHT: 82.6 kg BP: IVSd: 1.1 cm (0.6 - 1.1) LVIDd: 3.4 cm (3.9 - 5.3) LVPWd: 1.2 cm (0.6 - 1.1) IVSs: 1.8 cm LVIDs: 1.9 cm LVPWs: 1.5 cm RVIDd: 2.1 cm (< 3.3) LAESV Index (A-L): 16.79 ml/m Ao Diam: 3.1 cm (2.0 - 3.7) LA Diam: 3.7 cm (2.7 - 3.8) AV Cusp: 1.8 cm (1.5 - 2.6) MV E Earnest: 1.47 m/s MV DecT: 158 ms MV A Earnest: 0.36 m/s MV E/A Ratio: 4.04 RAP: 5.00 mmHg RVSP: 10.02 mmHg FINDINGS -------- Resting tachycardia (HR>100bpm). This was a technically good study. The left ventricular size is normal. There is borderline concentric left ventricular hypertrophy. Overall left ventricular systolic function is low-normal with, an EF between 50 - 55 %. The right ventricle is normal in size. The left atrial size is normal. Normal LA size by volume 22+/-6 ml/m2. The right atrial size is normal. The aortic valve is trileaflet and appears structurally normal. The mitral valve is normal. There is trace mitral regurgitation. The tricuspid valve appears structurally normal. Trace tricuspid regurgitation present. Right fabricio tricular systolic pressure is normal at < 35 mmHg. There is no pulmonic regurgitation present. The aortic root size is normal. Normal inferior vena cava with normal inspiratory collapse consistent with estimated right atrial pre ssure of 5 mmHg. There is no pericardial effusion. CONCLUSIONS -------- 1. Resting tachycardia (HR>100bpm). 2. This was a technically good study. 3. The left ventricular size is normal. 4. There is borderline concentric left ventricular hypertrophy. 5. Overall left ventricular systolic function is low-normal with, an EF between 50 - 55 %. 6. The right ventricle is normal in size. 7. The left atrial size is normal. 8. Normal LA size by volume 22+/-6 ml/m2. 9. The right atrial size is normal. 10. The aortic valve is trileaflet and appears structurally normal. 11. The mitral valve is normal. 12. There is trace mitral regurgitation. 13. The tricuspid valve appears structurally normal. 14. Trace tricuspid regurgitation present. 15. Right ventricular systolic pressure is normal at < 35 mmHg. 16. There is no pulmonic regurgitation present. 17. The aortic root size is normal. 18. Normal inferior vena cava with normal inspiratory collapse consistent with estimated right atrial pressure of 5 mmHg. 19. There is no pericardial effusion. STRAP MAKER: Nishi Luciano RDCS
[2019-06-01] MEDS: ENOXAPARIN 40 MG/0.4 ML SYRINGE SQ SCH (16:52)
[2019-06-01] MEDS ORDERED: RX INFO: IV CONTRAST WAS GIVEN 1 EACH MISC MISCELLANE PRN (18:03)
--- NOTE | 2019-06-01 18:19 | P.HPIM ---
History of Present Illness H&P Date: 06/01/19 Chief Complaint: Chest pressure History of presenting complaint: This is a pleasant 49-year-old patient of Dr. Arellano chronic stable medical conditions include hypertension, hyperlipidemia, seizure disorder last one being 2 weeks ago, bipolar disorder, recurrent low back pain and irritable bowel syndrome. Patient yesterday started after getting a chest pressure across the which caused and the waxing and waning in intensity. A bit worse with deep breath. Patient also dizzy lightheaded. No shortness of breath. Admitted for the same. Patient was diagnosed with Guillain-Cárdenas syndrome about 2 years ago and has been following up and he was to [place]. Awaiting insurance coverage for immunoglobulin injection. Chronically therefore weak in the legs and does use a walker to get about. Patient normally is of numbness about 3 inches below the sternum. In the last 2 days has noticed that the numbness is gone up to about 3 inches above the sternum. Some difficulty taking a deep breath. No fever no chills. Review of systems: GEN.: Tired EYES: None HEENT: None NECK: None RESPIRATORY: As above CARDIOVASCULAR: None GASTROINTESTINAL: None GENITOURINARY: None MUSCULOSKELETAL: Chronic low back pain LYMPHATICS: None HEMATOLOGICAL: None PSYCHIATRY: Anxious NEUROLOGICAL: None. Past medical history to include: Guillain-Cárdenas syndrome, hypertension, hyperlipidemia, epilepsy, bipolar disorder, irritable bowel syndrome, chronic low back pain, collateralization. Weakness from GBS status uses a walker Social history: Lives alcohol rarely. . Has averaged about a pack and half off cigarette smoking for close to 35 years. Physical examination: VITAL SIGNS: 97.1, 106, 24, 145/100, 97% on room air GENERAL: BMI 32.3, sitting on bed, tired. EYES: Pupils equal. Conjunctiva normal. HEENT: External appearance of nose and ears normal, oral cavity grossly normal. NECK: JVD not raised; masses not palpable. HEART: First and second heart sounds are normal; no edema. LUNGS: Respiratory rate increased; decreased breath sounds. Patient not able to take a deep breath ABDOMEN: Soft, nontender, liver spleen not palpable, no masses palpable. PSYCH: [Alert and oriented x3; mood and affect a bit low. NEUROLOGICAL: [Cranial nerves grossly intact; no facial asymmetry, or in the lower extremity 3/5. Decreased reflexes. Patient has numbness to just above the sternum lower end LYMPHATICS: No lymph nodes palpable in the axilla and neck INVESTIGATIONS, reviewed in the clinical context: White count 7.9 and hemoglobin 12.6 platelets 217 potassium 3.9 bun 8 creatinine 0.72 Troponin I 3 negative ProBNP 34 LDL 76 TSH 0.643 EKG tracing personally reviewed by me-normal sinus rhythm with heart rate of 111 Chest x-ray film personally reviewed by me-questionable atelectasis 2-D echo-year 50-45% Assessment: -This is a 49-year-old patient is a long-standing smoker. Presents with chest pressure across the chest associated with dizziness lightheadedness. Has associated tachycardia. Patient's breathing effort is a bit not able to take a deep breath. This could be COPD exacerbation. At the same time patient numbness is centered from underlying Guillain-Cárdenas syndrome. This is rather atypical given that is had been 2 years. Associated with the same my concern is if his affect a bit of the diaphragm. Of course. Pulmonary embolism needs to be ruled out. Cardiac causes is in the differential. 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 Salinas from pulmonary. With respect concerned about the body syndrome. I have: Ordered a ABG also getting the respiratory therapist to check patient's forced vital capacity every hour. Also NIF be done every hour. P atient be put on nebulized bronchodilators and inhaled steroids. Computed tomography scan of the chest is being ordered to rule out PE. Patient was seen by Dr. Salinas and his assessment patient can be held on the medical floor. And see how she performs. Other medications reviewed. Coronary was consulted. Stress test was ordered. Care was discussed with the patient. Did discuss that if this was a be Guillain-Cárdenas syndrome exacerbation. Past Medical History Past Medical History: Hyperlipidemia, Hypertension, Seizure Disorder Additional Past Medical History / Comment(s): Migraines, viral meningitis x3 as a child, 1995, 2000, chronic back pain, nerve blocks 08/2016 and 12/2016. Last seizure 05/26/19, "ABSENT SEIZURES. HX TACHYCARDIA, GB/CIPD, PTSD History of Any Multi-Drug Resistant Organisms: None Reported Past Surgical History: Appendectomy, Section, Cholecystectomy, Hernia Repair, Hysterectomy, Orthopedic Surgery, Tonsillectomy, Tubal Ligation Additional Past Surgical History / Comment(s): Hiatal Hernia, umbilical hernia repair, left rotator cuff repair, bilateral knee scopes, pain clinic procedures- occipital nerve block. abd exploratory sx(endometreosis), 3 abd scopes 1981, 1989, 1991), lumbar puncture. EGD. nerve biopsy, Past Anesthesia/Blood Transfusion Reactions: No Reported Reaction Additional Past Anesthesia/Blood Transfusion Reaction / Comment(s): Claustrophobic Past Psychological History: Anxiety, Bipolar, Panic Disorder, PTSD Smoking Status: Current every day smoker Past Alcohol Use History: None Reported Additional Past Alcohol Use History / Comment(s): SMOKED SINCE 1982, WAS 1 PPD, NOW 4-5 CIGARETTES PER DAY. Past Drug Use History: None Reported - Past Family History Mother Family Medical History: Cancer, Dementia, Diabetes Mellitus, GERD/Reflux, Hyperlipidemia, Hypertension, Thyroid Disorder Additional Family Medical History / Comment(s): Quad CABG, cardiac stents, toes ampuated. Father History Unknown: Yes Family Medical History: No Reported History Medications and Allergies Home Medications Medication Instructions Recorded Confirmed Type Atorvastatin [Lipitor] 40 mg PO HS 04/02/17 06/01/19 History Lacosamide [Vimpat] 100 mg PO BID 06/04/17 06/01/19 History HYDROcodone/APAP 7.5-325MG [[place] 1 tab PO TID PRN 07/06/17 06/01/19 History 7.5-325] amLODIPine [Norvasc] 5 mg PO DAILY 10/26/18 06/01/19 History Ergocalciferol [Vitamin D2] 50,000 unit PO WE 01/09/19 06/01/19 History Cyclobenzaprine [Flexeril] 5 mg PO DAILY PRN 04/27/19 06/01/19 History Divalproex ER [Depakote ER] 500 mg PO HS 06/01/19 06/01/19 History hydrOXYzine PAMOATE [Vistaril] 25 mg PO BID PRN 06/01/19 06/01/19 History Allergies Allergy/AdvReac Type Severity Reaction Status Date / Time dihydroergotamine Allergy Unknown Unknown Verified 06/01/19 09:54 [From Migranal] gabapentin [From Neurontin] Allergy Itching/Swe Verified 06/01/19 09:54 lling latex Allergy Anaphylaxis Verified 06/01/19 09:54 naproxen [From Naprosyn] Allergy Anaphylaxis Verified 06/01/19 09:54 Penicillins Allergy Anaphylaxis Verified 06/01/19 09:54 prednisone Allergy Swelling Verified 06/01/19 09:54 quetiapine fumarate Allergy Itching, Verified 06/01/19 09:54 [From Seroquel] leg cramps rofecoxib [From Vioxx] Allergy Itching, Verified 06/01/19 09:54 leg cramps terfenadine [From [place]] Allergy Rash/Hives Verified 06/01/19 09:54 tramadol Allergy Nausea & Verified 06/01/19 09:54 Vomiting/LEG CRAMPS/HEART FLUTTERS calcium carbonate [From DHEA] AdvReac Chest Pain Verified 06/01/19 09:54 calcium phosphate,dibasic AdvReac Chest Pain Verified 06/01/19 09:54 [From DHEA] clindamycin AdvReac muscle Verified 06/01/19 09:54 cramps clonidine AdvReac fast Verified 06/01/19 09:54 heartbeat, migraine dextromethorphan HBr AdvReac face/neck Verified 06/01/19 09:54 [From NyQuil] flushing diazepam [From Valium] AdvReac Nausea & Verified 06/01/19 09:54 Vomiting divalproex sodium AdvReac Nausea & Verified 06/01/19 09:54 [From Depakote] Vomiting doxylamine [From NyQuil] AdvReac face "beet Verified 06/01/19 09:54 red", elevated temp. ibuprofen [From Motrin] AdvReac abdominal Verified 06/01/19 09:54 & muscle cramps indomethacin [From Indocin] AdvReac Abdominal Verified 06/01/19 09:54 Pain,N/V ketorolac tromethamine AdvReac "built up Verified 06/01/19 09:54 [From Toradol] in system", had to be given something to reverse lorazepam [From Ativan] AdvReac Nausea & Verified 06/01/19 09:54 Vomiting metoclopramide HCl AdvReac muscle Verified 06/01/19 09:54 [From Reglan] cramps nortriptyline [From Pamelor] AdvReac Chest Pain Verified 06/01/19 09:54 prasterone (DHEA) [From DHEA] AdvReac Chest Pain Verified 06/01/19 09:54 prochlorperazine AdvReac leg Verified 06/01/19 09:54 [From Compazine] cramping propranolol AdvReac Chest Pain Verified 06/01/19 09:54 pseudoephedrine HCl AdvReac face "beet Verified 06/01/19 09:54 [From NyQuil] red", elevated temp. quetiapine [From Seroquel] AdvReac leg Verified 06/01/19 09:54 cramping sumatriptan [From Imitrex] AdvReac migrane Verified 06/01/19 09:54 sumatriptan succinate AdvReac migrane Verified 06/01/19 09:54 [From Imitrex] topiramate [From Topamax] AdvReac "built up Verified 06/01/19 09:54 in system", had to be given something to reverse trazodone AdvReac "built up Verified 06/01/19 09:54 in system", had to be given something to reverse zolpidem tartrate AdvReac "Became Verified 06/01/19 09:54 [From Ambien] violent with no memory" zonisamide [From Zonegran] AdvReac inability Verified 06/01/19 09:54 to eat artificial sweetener AdvReac SEVERE Uncoded 06/01/19 00:30 MIGRAINE HEADACHE Physical Exam Vitals: Vital Signs Temp Pulse Pulse Pulse Resp BP BP 06/01/19 15:57 98.2 F 118 H 18 100/66 06/01/19 11:30 97.7 F 114 H 18 149/101 06/01/19 07:41 97.6 F 110 H 18 152/98 06/01/19 05:00 97.5 F L 100 18 117/80 06/01/19 00:00 98.3 F 108 H 18 144/92 05/31/19 22:48 101 H 05/31/19 21:22 97.1 F L 116 H 24 145/100 Pulse Ox 06/01/19 15:57 95 06/01/19 11:30 97 02/25/20 07:41 94 L 06/01/19 05:00 93 L 06/01/19 00:00 97 05/31/19 22:48 05/31/19 21:22 97 Intake and Output 06/01/19 06/01/19 06/01/19 06:59 14:59 22:59 Intake Total 240 220 Balance 240 220 Intake: Oral 240 120 Other 100 Other: Voiding Method Toilet Toilet Toilet # Voids 1 Weight 82.6 kg Results CBC & Chem 7: 05/31/19 22:11 05/31/19 22:11 Labs: Abnormal Lab Results - Last 24 Hours (Table) 05/31/19 05/31/19 06/01/19 Range/Units 22:11 22:11 04:45 APTT 32.1 H (22.0-30.0) sec ABG pO2 (83-108) mmHg ABG Total CO2 (19-24) mmol/L ABG O2 Saturation (94-97) % Carbon Dioxide 31 H (22-30) mmol/L Alkaline Phosphatase 147 H (38-126) U/L HDL Cholesterol 88 H (40-60) mg/dL 06/01/19 Range/Units 13:20 APTT (22.0-30.0) sec ABG pO2 62 L (83-108) mmHg ABG Total CO2 26 H (19-24) mmol/L ABG O2 Saturation 92.5 L (94-97) % Carbon Dioxide (22-30) mmol/L Alkaline Phosphatase (38-126) U/L HDL Cholesterol (40-60) mg/dL Thrombosis Risk Factor Assmnt - Choose All That Apply Any of the Below Risk Factors Present?: Yes Each Factor Represents 1 point: Age 41-60 years, Obesity (BMI >25) Other Risk Factors: No Other congenital or acquired thrombophilia - If yes, enter type in comment: No Thrombosis Risk Factor Assessment Total Risk Factor Score: 2 Thrombosis Risk Factor Assessment Level: Low Risk
[2019-06-01] MEDS: IPRATROPIUM-ALBUTEROL 3 ML NEB INHALATION SCH (18:56)
--- NOTE | 2019-06-01 19:03 | CT ---
EXAMINATION TYPE: CT angio chest DATE OF EXAM: 06/01/2019 COMPARISON: None HISTORY: Shortness of breath. CT DLP: 371.5 mGycm Automated exposure control for dose reduction was used. CONTRAST: Performed with IV Contrast, patient injected with 75ml mL of Isovue 370. Multiple axial sections were obtained from the thoracic inlet to the diaphragm with IV contrast. Ther e are 3-D post processed images. The lungs are clear of consolidation. There is no evidence of a pulmonary mass. There is atelectasis at both lung bases. There is no pleural effusion. Heart size is normal. There is no pericardial effus ion. There are no hilar masses. There is no mediastinal adenopathy. Thoracic aorta is intact. Ascending ao rta measures 3.4 cm. There is no dissection. There is normal contrast opacification of the pulmonary arteries. There are no filling defects. The thoracic spine is intact. There is no compression fractur e. IMPRESSION: No evidence of pulmonary embolism. Bilateral lower lobe patchy atelectasis.
[2019-06-01] MEDS: BUDESONIDE 1 MG/2 ML NEBU INHALATION SCH (19:11)
[2019-06-01] MEDS: LORazepam 2 MG/ML INJ IV PRN (19:50)
[2019-06-01] MEDS ORDERED: ATORVASTATIN 40 MG TAB PO SCH (21:00)
[2019-06-01] MEDS ORDERED: DIVALPROEX ER 500 MG TAB.ER.24H PO SCH (21:00)
[2019-06-02] MEDS: IPRATROPIUM-ALBUTEROL 3 ML NEB INHALATION SCH ×4 (03:38→15:00)
[2019-06-02] MEDS: HYDROcodone/APAP 7.5-325MG 1 EACH TAB PO PRN ×2 (03:50→12:54)
[2019-06-02] MEDS: LORazepam 2 MG/ML INJ IV PRN ×2 (03:57→12:55)
[2019-06-02 04:14] VITALS: RESP 18
[2019-06-02] MEDS: BUDESONIDE 1 MG/2 ML NEBU INHALATION SCH (06:59)
[2019-06-02] MEDS: LACOSAMIDE 50 MG TABLET PO SCH (08:41)
[2019-06-02] MEDS: amLODIPine 5 MG TAB PO SCH (08:41)
[2019-06-02] MEDS: ENOXAPARIN 40 MG/0.4 ML SYRINGE SQ SCH (08:42)
[2019-06-02] MEDS ORDERED: ASPIRIN 81 MG PO SCH (09:00)
[2019-06-02] MEDS ORDERED: ERGOCALCIFEROL 50,000 UNIT CAP PO SCH (09:00)
[2019-06-02] MEDS ORDERED: DOBUTamine DRIP for NUC MED 500 MG in DEXTROSE/WATER 1 250ML.BAG IV ONE (09:15)
--- NOTE | 2019-06-02 11:37 | ECHOS ---
STRESS ECHOCARDIOGRAM INDICATIONS: Chest pain. BASELINE HEART RATE: 100 BASELINE BLOOD PRESSURE: 117/78 MAXIMUM HEART RATE: 147 MAXIMUM BLOOD PRESSURE: 148/79 85% MPHR: 147 100% MPHR: 183 MAXIMUM STAGE REACHED: 3 TOTAL EXERCISE TIME: 9:00 CLINICAL INFORMATION: Shaniqua Garza underwent a dobutamine stress echo for recurrent chest pain. RESULTS: Baseline heart rate 100 beats per minute baseline 117/78 mmHg. Baseline 12-lead ECG shows normal sinus rhythm, normal cardiac intervals, normal ST segments. Patient received dobutamine infusion per protocol. Peak heart rate achieved 147 beats per minute which is 85% of the predicted maximal heart rate for age. There was no ECG evidence for ischemia. Occasional PVCs were noted during dobutamine infusion, no nonsustained ventricular tachycardia. There was no ECG evidence for ischemia. Baseline 2D echo images showed normal LV systolic function without segmental wall motion abnormalities. At dobutamine infusion, there was stepwise increment in overall LV contractility without development of any wall motion abnormalities, at recovery regional global LV systolic function remained normal. IMPRESSION: No ECG or echocardiographic evidence for ischemia. Occasional PVCs during dobutamine infusion. MMODL / IJN: [id number] /
[2019-06-02 11:52] VITALS: TEMP 98.1
--- NOTE | 2019-06-02 12:00 | P.PN ---
Subjective Progress Note Date: 06/02/19 This is a pleasant 49-year-old female past medical history significant for hypertension, dyslipidemia, seizure disorder, chronic back pain and chronic nicotine dependence. She presented to the hospital with symptoms of chest discomfort. She was seen in consultation yesterday and the observation unit. Patient was noted to be tachycardic and somewhat short of breath for this reason she was transferred to the cardiac unit. CTA of the chest was negative for pulmonary embolism. The patient was seen and evaluated this morning denied any chest discomfort and her breathing is stable. She is scheduled today to undergo dobutamine echocardiographic study. Blood pressure this morning 105/60 with a heart rate of 1, temperature 98.1 she is 95% on room air. Objective - Vital Signs Vital signs: Vital Signs Temp 98.1 F 06/02/19 08:00 Pulse 104 H 06/02/19 11:37 Resp 18 06/02/19 04:00 BP 105/64 06/02/19 08:00 Pulse Ox 98 06/02/19 11:27 Intake & Output 06/01/19 06/02/19 06/02/19 18:59 06:59 18:59 Intake Total 460 540 0 Balance 460 540 0 Weight 84.7 kg 82.554 kg Intake: Oral 360 540 0 Other 100 Other: Voiding Method Toilet # Voids 2 - Exam CONSTITUTIONAL: No apparent distress. HEENT: Head is normocephalic. Pupils are equal, round. Sclerae anicteric. Mucous membranes of the mouth are moist. No JVD. No carotid bruit. CHEST EXAMINATION: Lungs are clear to auscultation. No chest wall tenderness is noted on palpation or with deep breathing. HEART EXAMINATION: Regular rate and rhythm. S1, S2 heard. No murmurs, gallops or rub. ABDOMEN: Soft, nontender. Positive bowel sounds. EXTREMITIES: 2+ peripheral pulses, no lower extremity edema and no calf tenderness. NEUROLOGIC EXAMINATION: Patient is awake, alert and oriented x3. - Labs CBC & Chem 7: 05/31/19 22:11 05/31/19 22:11 Labs: Abnormal Lab Results - Last 24 Hours (Table) 06/01/19 Range/Units 13:20 ABG pO2 62 L (83-108) mmHg ABG Total CO2 26 H (19-24) mmol/L ABG O2 Saturation 92.5 L (94-97) % Assessment and Plan Plan: ASSESSMENT and plan #1 Chest pain, atypical for angina. Pleuritic features. Troponins negative 3 #2 Headache #3 Hypertension #4 Dyslipidemia #5 Chronic nicotine dependence #6 Seizure disorder Plan Echocardiogram with Doppler study was performed which revealed a normal left ventricular systolic function. Patient is scheduled today to undergo dobutamine echocardiographic study. If that is negative then from our perspective she may be able to be discharged home today DNP note has been reviewed, I agree with a documented findings and plan of care. Patient was seen and examined.
[2019-06-02 15:56] VITALS: BP 98/54
[2019-06-02 15:57] VITALS: PULSE 109
--- NOTE | 2019-06-02 23:14 | P.DS ---
Providers Date of admission: 05/31/19 23:18 Expected date of discharge: 06/02/19 Attending physician: Edwin Mccoy Consults: 05/31/19 23:18 Consult Physician Urgent Consulting Provider: Joni Matt Consult Reason/Comments: cp Do you want consulting provider notified?: Yes 06/01/19 12:54 Consult Physician Routine Consulting Provider: Benny Gordon Consult Reason/Comments: SOB/GBS Do you want consulting provider notified?: Yes Primary care physician: [facility] Course: Chief Complaint: Chest pressure History of presenting complaint: This is a pleasant 49-year-old patient of Dr. Arellano chronic stable medical conditions include hypertension, hyperlipidemia, seizure disorder last one being 2 weeks ago, bipolar disorder, recurrent low back pain and irritable bowel syndrome. Patient yesterday started after getting a chest pressure across the which caused and the waxing and waning in intensity. A bit worse with deep breath. Patient also dizzy lightheaded. No shortness of breath. Admitted for the same. Patient was diagnosed with Guillain-Cárdenas syndrome about 2 years ago and has been following up and he was to [place]. Awaiting insurance coverage for immunoglobulin injection. Chronically therefore weak in the legs and does use a walker to get about. patient was treated with bronchodilators and steroids. Responded well. Seen with from pulmonary. Patient much improved.dobutamine stress echocardiogram was negative. Discussed with patient. Stable to go home.discussed Consultation: Dr. Nelson from cardiogenic Dr. Gordon from pulmonary Physical examination: VITAL SIGNS:98.1, 104, 105/64, 95% on room air GENERAL: BMI 32.3, sitting on bed, tired. EYES: Pupils equal. Conjunctiva normal. HEENT: External appearance of nose and ears normal, oral cavity grossly normal. NECK: JVD not raised; masses not palpable. HEART: First and second heart sounds are normal; no edema. LUNGS: Respiratory rate normal; fair air entry ABDOMEN: Soft, nontender, liver spleen not palpable, no masses palpable. PSYCH: [Alert and oriented x3; mood and affect a bit low. INVESTIGATIONS, reviewed in the clinical context: White count 7.9 and hemoglobin 12.6 platelets 217 potassium 3.9 bun 8 creatinine 0.72 Troponin I 3 negative ProBNP 34 LDL 76 TSH 0.643 EKG tracing personally reviewed by me-normal sinus rhythm with heart rate of 111 Chest x-ray film personally reviewed by me-questionable atelectasis 2-D echo-year 50-45% ABG-pO2 62 pCO2 40 pH 7.4 Assessment: -acute COPD exacerbation -Atypical chest wall pain. 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 -Essential hypertension -Hyperlipidemia -Chronic epilepsy with last episode 2 weeks ago -Bipolar disorder -Irritable bowel syndrome -COPD in a current smoker -Chronic nicotine dependence patient cigarette smoker disposition: Home Patient Condition at Discharge: Stable Plan - Discharge Summary Discharge Rx Participant: No New Discharge Prescriptions: New Aspirin 81 mg PO DAILY #30 chew Ipratropium [place] [Atrovent Hfa] 2 puff INHALATION TID #1 inhaler Beclomethasone Dipropionate [Qvar 40 mcg Redihaler] 1 puff INHALATION BID #1 inhaler Albuterol Inhaler [Ventolin Hfa Inhaler] 1 - 2 puff INHALATION RT-Q6H PRN #1 inhaler PRN Reason: Wheezing Continue Atorvastatin [Lipitor] 40 mg PO HS Lacosamide [Vimpat] 100 mg PO BID HYDROcodone/APAP 7.5-325MG [[place] 7.5-325] 1 tab PO TID PRN PRN Reason: Pain amLODIPine [Norvasc] 5 mg PO DAILY Ergocalciferol [Vitamin D2 (DRISDOL)] 50,000 unit PO WE Cyclobenzaprine [Flexeril] 5 mg PO DAILY PRN PRN Reason: Muscle Spasm hydrOXYzine PAMOATE [Vistaril] 25 mg PO BID PRN PRN Reason: Anxiety Divalproex ER [Depakote ER] 500 mg PO HS Discharge Medication List Atorvastatin [Lipitor] 40 mg PO HS 04/02/17 [History] Lacosamide [Vimpat] 100 mg PO BID 06/04/17 [History] HYDROcodone/APAP 7.5-325MG [[place] 7.5-325] 1 tab PO TID PRN 07/06/17 [History] amLODIPine [Norvasc] 5 mg PO DAILY 10/26/18 [History] Ergocalciferol [Vitamin D2 (DRISDOL)] 50,000 unit PO WE 01/09/19 [History] Cyclobenzaprine [Flexeril] 5 mg PO DAILY PRN 04/27/19 [History] Divalproex ER [Depakote ER] 500 mg PO HS 06/01/19 [History] hydrOXYzine PAMOATE [Vistaril] 25 mg PO BID PRN 06/01/19 [History] Albuterol Inhaler [Ventolin Hfa Inhaler] 1 - 2 puff INHALATION RT-Q6H PRN #1 inhaler 06/02/19 [Rx] Aspirin 81 mg PO DAILY #30 chew 06/02/19 [Rx] Beclomethasone Dipropionate [Qvar 40 mcg Redihaler] 1 puff INHALATION BID #1 inhaler 06/02/19 [Rx] Ipratropium [place] [Atrovent Hfa] 2 puff INHALATION TID #1 inhaler 06/02/19 [Rx] Follow up Appointment(s)/Referral(s): Benny Gordon MD [STAFF PHYSICIAN] - 1 Week (Office is closed. Please call to schedule appointment ) Tahir Bustillos MD [STAFF PHYSICIAN] - 06/23/19 10:00 am (Friday with HYDROGEOLOGY PROFESSOR) José Reece MD [Primary Care Provider] - 06/07/19 11:40 am (Friday) Patient Instructions/Handouts: Chest Pain (DC), How to Stop Smoking (DC) Activity/Diet/Wound Care/Special Instructions: No smoking Discharge Disposition: HOME SELF-CARE
== END 2019-06-02 17:24 | disposition home or self-care (01) ==
LOC: EC 21:03 → 1SOBS 23:18 → INTOOBSV 23:18 → OBSVTOIN 23:18 → UNDOADMOB 23:18 → 3SCARD 06-01 18:45 → 1SOBS 06-01 18:45 → UNDODISIN 06-02 17:24
PROVIDERS: ADMIT Hospitalist; ATTEND Hospitalist
DX: J44.1 Chronic obstructive pulmonary disease with (acute) exacerbation (principal); F17.210 Nicotine dependence, cigarettes, uncomplicated; R07.89 Other chest pain; I10 Essential (primary) hypertension; E78.5 Hyperlipidemia, unspecified; G43.909 Migraine, unspecified, not intractable, without status migrainosus; G40.909 Epilepsy, unspecified, not intractable, without status epilepticus; F41.9 Anxiety disorder, unspecified; F31.9 Bipolar disorder, unspecified; F41.0 Panic disorder [episodic paroxysmal anxiety]; F43.10 Post-traumatic stress disorder, unspecified; G61.0 Guillain-Barre syndrome; G82.20 Paraplegia, unspecified; F40.240 Claustrophobia; K58.9 Irritable bowel syndrome, unspecified; E66.9 Obesity, unspecified; Z68.32 Body mass index [BMI] 32.0-32.9, adult; G89.29 Other chronic pain; M54.9 Dorsalgia, unspecified; Z86.61 Personal history of infections of the central nervous system; Z90.49 Acquired absence of other specified parts of digestive tract; Z90.710 Acquired absence of both cervix and uterus; Z98.51 Tubal ligation status; Z95.5 Presence of coronary angioplasty implant and graft; Z98.890 Other specified postprocedural states; Z81.8 Family history of other mental and behavioral disorders; Z83.3 Family history of diabetes mellitus; Z83.438 Family history of other disorder of lipoprotein metabolism and other lipidemia; Z82.49 Family history of ischemic heart disease and other diseases of the circulatory system; Z83.49 Family history of other endocrine, nutritional and metabolic diseases; Z80.9 Family history of malignant neoplasm, unspecified; Z79.899 Other long term (current) drug therapy; Z88.6 Allergy status to analgesic agent; Z88.1 Allergy status to other antibiotic agents; Z91.040 Latex allergy status; Z88.5 Allergy status to narcotic agent; Z88.0 Allergy status to penicillin; Z88.8 Allergy status to other drugs, medicaments and biological substances; Z91.018 Allergy to other foods
CPT/HCPCS: 96376 ×3; 96361 ×4; 96372 ×2; 96375 ×2; 93005 ×2; 96365; 99285; 36415; 94640 ×3; 36600; 93306; 93351; 85379; 80164; 83880; 80061; 80053; 84443; 82140; 82805; 83690; 83735; 84484 ×2; 85025; 85610; 85730; 71046; 71275; G0378 ×4; J2060 ×3; J1250; J2405; J2930; J1650 ×2; J1170 ×2; J1642; Q9967; 94760; 96374

== ENCOUNTER 2019-06-09 12:33 | Emergency (ER) | payer OTHER ==
[2019-06-09 12:37] VITALS: TEMP 98.1
[2019-06-09] MEDS ORDERED: diphenhydrAMINE 50 MG/ML 1 ML VIAL IM STA (13:23)
[2019-06-09] MEDS ORDERED: HYDROmorphone 1 MG/ML 1 ML SYRINGE IM STA (13:23)
[2019-06-09] MEDS ORDERED: ONDANSETRON 4 MG/2 ML VIAL IM STA (13:23)
--- NOTE | 2019-06-09 13:26 | ED ---
Headache HPI - General Chief Complaint: Headache Stated Complaint: migraine/vomiting Time Seen by Provider: 06/09/19 13:20 Source: patient, RN notes reviewed Mode of arrival: ambulatory Limitations: no limitations - History of Present Illness Initial Comments: 49-year-old female presents emergency Department chief complaint of headache. This is a chronic thing in nature. Patient states she does not have any fever, chills, neck pain, neck stiffness, chest pain or shortness breath she's had some nausea for since Friday which is normal for her. She is scheduled see a pain management on Friday. Patient denies any other complaints she states this is her typical migraine headache. - Related Data Home Medications Medication Instructions Recorded Confirmed Atorvastatin [Lipitor] 40 mg PO HS 04/02/17 06/01/19 Lacosamide [Vimpat] 100 mg PO BID 06/04/17 06/01/19 HYDROcodone/APAP 7.5-325MG [[place] 1 tab PO TID PRN 07/06/17 06/01/19 7.5-325] amLODIPine [Norvasc] 5 mg PO DAILY 10/26/18 06/01/19 Ergocalciferol [Vitamin D2 50,000 unit PO WE 01/09/19 06/01/19 (DRISDOL)] Cyclobenzaprine [Flexeril] 5 mg PO DAILY PRN 04/27/19 06/01/19 Divalproex ER [Depakote ER] 500 mg PO HS 06/01/19 06/01/19 hydrOXYzine PAMOATE [Vistaril] 25 mg PO BID PRN 06/01/19 06/01/19 Previous Rx's Medication Instructions Recorded Albuterol Inhaler [Ventolin Hfa 1 - 2 puff INHALATION RT-Q6H PRN 06/02/19 Inhaler] #1 inhaler Aspirin 81 mg PO DAILY #30 chew 06/02/19 Beclomethasone Dipropionate [Qvar 1 puff INHALATION BID #1 inhaler 06/02/19 40 mcg Redihaler] Ipratropium [place] [Atrovent Hfa] 2 puff INHALATION TID #1 inhaler 06/02/19 Allergies Allergy/AdvReac Type Severity Reaction Status Date / Time dihydroergotamine Allergy Unknown Unknown Verified 06/09/19 12:37 [From Migranal] gabapentin [From Neurontin] Allergy Itching/Swe Verified 06/09/19 12:37 lling latex Allergy Anaphylaxis Verified 06/09/19 12:37 naproxen [From Naprosyn] Allergy Anaphylaxis Verified 06/09/19 12:37 Penicillins Allergy Anaphylaxis Verified 06/09/19 12:37 prednisone Allergy Swelling Verified 06/09/19 12:37 quetiapine fumarate Allergy Itching, Verified 06/09/19 12:37 [From Seroquel] leg cramps rofecoxib [From Vioxx] Allergy Itching, Verified 06/09/19 12:37 leg cramps terfenadine [From Seldane] Allergy Rash/Hives Verified 06/09/19 12:37 tramadol Allergy Nausea & Verified 06/09/19 12:37 Vomiting/LEG CRAMPS/HEART FLUTTERS calcium carbonate [From DHEA] AdvReac Chest Pain Verified 06/09/19 12:37 calcium phosphate,dibasic AdvReac Chest Pain Verified 06/09/19 12:37 [From DHEA] clindamycin AdvReac muscle Verified 06/09/19 12:37 cramps clonidine AdvReac fast Verified 06/09/19 12:37 heartbeat, migraine dextromethorphan HBr AdvReac face/neck Verified 06/09/19 12:37 [From NyQuil] flushing diazepam [From Valium] AdvReac Nausea & Verified 06/09/19 12:37 Vomiting divalproex sodium AdvReac Nausea & Verified 06/09/19 12:37 [From Depakote] Vomiting doxylamine [From NyQuil] AdvReac face "beet Verified 06/09/19 12:37 red", elevated temp. ibuprofen [From Motrin] AdvReac abdominal Verified 06/09/19 12:37 & muscle cramps indomethacin [From Indocin] AdvReac Abdominal Verified 06/09/19 12:37 Pain,N/V ketorolac tromethamine AdvReac "built up Verified 06/09/19 12:37 [From Toradol] in system", had to be given something to reverse lorazepam [From Ativan] AdvReac Nausea & Verified 06/09/19 12:37 Vomiting metoclopramide HCl AdvReac muscle Verified 06/09/19 12:37 [From Reglan] cramps nortriptyline [From Pamelor] AdvReac Chest Pain Verified 06/09/19 12:37 prasterone (DHEA) [From DHEA] AdvReac Chest Pain Verified 06/09/19 12:37 prochlorperazine AdvReac leg Verified 06/09/19 12:37 [From Compazine] cramping propranolol AdvReac Chest Pain Verified 06/09/19 12:37 pseudoephedrine HCl AdvReac face "beet Verified 06/09/19 12:37 [From NyQuil] red", elevated temp. quetiapine [From Seroquel] AdvReac leg Verified 06/09/19 12:37 cramping sumatriptan [From Imitrex] AdvReac migrane Verified 06/09/19 12:37 sumatriptan succinate AdvReac migrane Verified 06/09/19 12:37 [From Imitrex] topiramate [From Topamax] AdvReac "built up Verified 06/09/19 12:37 in system", had to be given something to reverse trazodone AdvReac "built up Verified 06/09/19 12:37 in system", had to be given something to reverse zolpidem tartrate AdvReac "Became Verified 06/09/19 12:37 [From Ambien] violent with no memory" zonisamide [From Zonegran] AdvReac inability Verified 06/09/19 12:37 to eat artificial sweetener AdvReac SEVERE Uncoded 06/01/19 00:30 MIGRAINE HEADACHE Review of Systems ROS Statement: Those systems with pertinent positive or pertinent negative responses have been documented in the HPI. ROS Other: All systems not noted in ROS Statement are negative. Past Medical History Past Medical History: Hyperlipidemia, Hypertension, Seizure Disorder Additional Past Medical History / Comment(s): Migraines, viral meningitis x3 as a child, 1995, 2000, chronic back pain, nerve blocks 08/2016 and 12/2016. Last seizure 05/26/19, "ABSENT SEIZURES. HX TACHYCARDIA, GB/CIPD, PTSD History of Any Multi-Drug Resistant Organisms: None Reported Past Surgical History: Appendectomy, Section, Cholecystectomy, Hernia Repair, Hysterectomy, Orthopedic Surgery, Tonsillectomy, Tubal Ligation Additional Past Surgical History / Comment(s): Hiatal Hernia, umbilical hernia repair, left rotator cuff repair, bilateral knee scopes, pain clinic procedures-occipital nerve block. abd exploratory sx(endometreosis), 3 abd scopes 1981, 1989, 1991), lumbar puncture. EGD. nerve biopsy, Past Anesthesia/Blood Transfusion Reactions: No Reported Reaction Additional Past Anesthesia/Blood Transfusion Reaction / Comment(s): Claustrophobic Past Psychological History: Anxiety, Bipolar, Panic Disorder, PTSD Smoking Status: Current every day smoker Past Alcohol Use History: None Reported Past Drug Use History: None Reported - Past Family History Mother Family Medical History: Cancer, Dementia, Diabetes Mellitus, GERD/Reflux, Hyperlipidemia, Hypertension, Thyroid Disorder Additional Family Medical History / Comment(s): Quad CABG, cardiac stents, toes ampuated. Father History Unknown: Yes Family Medical History: No Reported History General Exam Limitations: no limitations General appearance: alert, in no apparent distress Head exam: Present: atraumatic, normocephalic, normal inspection Eye exam: Present: normal appearance, PERRL, EOMI. Absent: scleral icterus, conjunctival injection, periorbital swelling ENT exam: Present: normal exam, normal oropharynx, mucous membranes moist, TM's normal bilaterally Neck exam: Present: normal inspection, full ROM. Absent: tenderness, meningismus, lymphadenopathy Respiratory exam: Present: normal lung sounds bilaterally. Absent: respiratory distress, wheezes, rales, rhonchi, stridor Cardiovascular Exam: Present: regular rate, normal rhythm, normal heart sounds. Absent: systolic murmur, diastolic murmur, rubs, gallop, clicks Neurological exam: Present: alert, oriented X3, CN II-XII intact, reflexes normal, other (Plans to nose intact bilaterally without or shooting.). Absent: motor sensory deficit Course Vital Signs 06/09/19 12:36 Temperature 98.1 F Pulse Rate 114 H Respiratory 16 Rate Blood Pressure 132/90 O2 Sat by Pulse 98 Oximetry Medical Decision Making - Medical Decision Making Patient has chronic migraine headaches this is not unusual for her no red flag symptoms. Patient will be given IM injections and discharge. Patient agrees to plan. Disposition Clinical Impression: Headache Disposition: HOME SELF-CARE Condition: Stable Instructions (If sedation given, give patient instructions): Acute Headache (ED) Additional Instructions: Please return to the Emergency Department if symptoms worsen or any other concerns. Is patient prescribed a controlled substance at d/c from ED?: No Referrals: José Reece MD [Primary Care Provider] - 1-2 days Time of Disposition: 13:26
[2019-06-09 13:44] VITALS: BP 137/93; PULSE 100; RESP 18
== END 2019-06-09 14:11 | disposition home or self-care (01) ==
LOC: EC 12:33
DX: G43.909 Migraine, unspecified, not intractable, without status migrainosus (principal); G40.909 Epilepsy, unspecified, not intractable, without status epilepticus; E78.5 Hyperlipidemia, unspecified; I10 Essential (primary) hypertension; F17.200 Nicotine dependence, unspecified, uncomplicated; Z79.899 Other long term (current) drug therapy; Z88.2 Allergy status to sulfonamides; Z88.8 Allergy status to other drugs, medicaments and biological substances; Z88.1 Allergy status to other antibiotic agents; Z88.6 Allergy status to analgesic agent; Z88.0 Allergy status to penicillin; Z91.040 Latex allergy status; Z88.5 Allergy status to narcotic agent
CPT/HCPCS: 99283; 96372 ×3; J1200; J2405; J1170

== ENCOUNTER 2019-06-09 23:41 | Emergency (ER) | payer OTHER ==
[2019-06-09 23:50] VITALS: BP 154/98; PULSE 111; RESP 18; TEMP 98
[2019-06-09] MEDS ORDERED: LIDOCAINE 1% INJ 10MG/ML (20 ML MDV) SQ ONE (23:54)
[2019-06-09] MEDS ORDERED: ONDANSETRON 4 MG/2 ML VIAL IM STA (23:54)
[2019-06-10] MEDS ORDERED: HYDROmorphone 1 MG/ML 1 ML SYRINGE IM STA (00:15)
--- NOTE | 2019-06-10 00:21 | ED ---
Headache HPI - General Chief Complaint: Headache Stated Complaint: migraine/vomiting Time Seen by Provider: 06/09/19 23:52 Mode of arrival: ambulatory Limitations: no limitations - History of Present Illness Initial Comments: Patient is a 49-year-old female with history of recurrent migraines presents emergency Department with a chief complaint of a migraine. Patient states she was in the ED earlier today with the exact same symptoms. States once had a headache along with nausea, vomiting and photosensitivity. Denies any visual disturbances. Denies any one-sided weakness or paresthesias. Does report multiple episodes of nonbilious, nonbloody vomiting. States this feels like a typical migraine although she was not able to reported with her home medications. Patient states she scheduled to see a pain specialist on Friday and a neurologist at the [facility] 2 weeks from now. - Related Data Home Medications Medication Instructions Recorded Confirmed Atorvastatin [Lipitor] 40 mg PO HS 04/02/17 06/01/19 Lacosamide [Vimpat] 100 mg PO BID 06/04/17 06/01/19 HYDROcodone/APAP 7.5-325MG [[place] 1 tab PO TID PRN 07/06/17 06/01/19 7.5-325] amLODIPine [Norvasc] 5 mg PO DAILY 10/26/18 06/01/19 Ergocalciferol [Vitamin D2 50,000 unit PO WE 01/09/19 06/01/19 (DRISDOL)] Cyclobenzaprine [Flexeril] 5 mg PO DAILY PRN 04/27/19 06/01/19 Divalproex ER [Depakote ER] 500 mg PO HS 06/01/19 06/01/19 hydrOXYzine PAMOATE [Vistaril] 25 mg PO BID PRN 06/01/19 06/01/19 Previous Rx's Medication Instructions Recorded Albuterol Inhaler [Ventolin Hfa 1 - 2 puff INHALATION RT-Q6H PRN 06/02/19 Inhaler] #1 inhaler Aspirin 81 mg PO DAILY #30 chew 06/02/19 Beclomethasone Dipropionate [Qvar 1 puff INHALATION BID #1 inhaler 06/02/19 40 mcg Redihaler] Ipratropium [place] [Atrovent Hfa] 2 puff INHALATION TID #1 inhaler 06/02/19 Allergies Allergy/AdvReac Type Severity Reaction Status Date / Time dihydroergotamine Allergy Unknown Unknown Verified 06/09/19 12:37 [From Migranal] gabapentin [From Neurontin] Allergy Itching/Swe Verified 06/09/19 12:37 lling latex Allergy Anaphylaxis Verified 06/09/19 12:37 naproxen [From Naprosyn] Allergy Anaphylaxis Verified 06/09/19 12:37 Penicillins Allergy Anaphylaxis Verified 06/09/19 12:37 prednisone Allergy Swelling Verified 06/09/19 12:37 quetiapine fumarate Allergy Itching, Verified 06/09/19 12:37 [From Seroquel] leg cramps rofecoxib [From Vioxx] Allergy Itching, Verified 06/09/19 12:37 leg cramps terfenadine [From Seldane] Allergy Rash/Hives Verified 06/09/19 12:37 tramadol Allergy Nausea & Verified 06/09/19 12:37 Vomiting/LEG CRAMPS/HEART FLUTTERS calcium carbonate [From DHEA] AdvReac Chest Pain Verified 06/09/19 12:37 calcium phosphate,dibasic AdvReac Chest Pain Verified 06/09/19 12:37 [From DHEA] clindamycin AdvReac muscle Verified 06/09/19 12:37 cramps clonidine AdvReac fast Verified 06/09/19 12:37 heartbeat, migraine dextromethorphan HBr AdvReac face/neck Verified 06/09/19 12:37 [From NyQuil] flushing diazepam [From Valium] AdvReac Nausea & Verified 06/09/19 12:37 Vomiting divalproex sodium AdvReac Nausea & Verified 06/09/19 12:37 [From Depakote] Vomiting doxylamine [From NyQuil] AdvReac face "beet Verified 06/09/19 12:37 red", elevated temp. ibuprofen [From Motrin] AdvReac abdominal Verified 06/09/19 12:37 & muscle cramps indomethacin [From Indocin] AdvReac Abdominal Verified 06/09/19 12:37 Pain,N/V ketorolac tromethamine AdvReac "built up Verified 06/09/19 12:37 [From Toradol] in system", had to be given something to reverse lorazepam [From Ativan] AdvReac Nausea & Verified 06/09/19 12:37 Vomiting metoclopramide HCl AdvReac muscle Verified 06/09/19 12:37 [From Reglan] cramps nortriptyline [From Pamelor] AdvReac Chest Pain Verified 06/09/19 12:37 prasterone (DHEA) [From DHEA] AdvReac Chest Pain Verified 06/09/19 12:37 prochlorperazine AdvReac leg Verified 06/09/19 12:37 [From Compazine] cramping propranolol AdvReac Chest Pain Verified 06/09/19 12:37 pseudoephedrine HCl AdvReac face "beet Verified 06/09/19 12:37 [From NyQuil] red", elevated temp. quetiapine [From Seroquel] AdvReac leg Verified 06/09/19 12:37 cramping sumatriptan [From Imitrex] AdvReac migrane Verified 06/09/19 12:37 sumatriptan succinate AdvReac migrane Verified 06/09/19 12:37 [From Imitrex] topiramate [From Topamax] AdvReac "built up Verified 06/09/19 12:37 in system", had to be given something to reverse trazodone AdvReac "built up Verified 06/09/19 12:37 in system", had to be given something to reverse zolpidem tartrate AdvReac "Became Verified 06/09/19 12:37 [From Ambien] violent with no memory" zonisamide [From Zonegran] AdvReac inability Verified 06/09/19 12:37 to eat artificial sweetener AdvReac SEVERE Uncoded 06/01/19 00:30 MIGRAINE HEADACHE Review of Systems ROS Statement: Those systems with pertinent positive or pertinent negative responses have been documented in the HPI. ROS Other: All systems not noted in ROS Statement are negative. Past Medical History Past Medical History: Hyperlipidemia, Hypertension, Seizure Disorder Additional Past Medical History / Comment(s): Migraines, viral meningitis x3 as a child, 1995, 2000, chronic back pain, nerve blocks 08/2016 and 12/2016. Last seizure 05/26/19, "ABSENT SEIZURES. HX TACHYCARDIA, GB/CIPD, PTSD History of Any Multi-Drug Resistant Organisms: None Reported Past Surgical History: Appendectomy, Section, Cholecystectomy, Hernia Repair, Hysterectomy, Orthopedic Surgery, Tonsillectomy, Tubal Ligation Additional Past Surgical History / Comment(s): Hiatal Hernia, umbilical hernia repair, left rotator cuff repair, bilateral knee scopes, pain clinic procedures- occipital nerve block. abd exploratory sx(endometreosis), 3 abd scopes 1981, 1989, 1991), lumbar puncture. EGD. nerve biopsy, Past Anesthesia/Blood Transfusion Reactions: No Reported Reaction Additional Past Anesthesia/Blood Transfusion Reaction / Comment(s): Claustrophobic Past Psychological History: Anxiety, Bipolar, Panic Disorder, PTSD Smoking Status: Current every day smoker Past Alcohol Use History: None Reported Past Drug Use History: None Reported - Past Family History Mother Family Medical History: Cancer, Dementia, Diabetes Mellitus, GERD/Reflux, Hyperlipidemia, Hypertension, Thyroid Disorder Additional Family Medical History / Comment(s): Quad CABG, cardiac stents, toes ampuated. Father History Unknown: Yes Family Medical History: No Reported History General Exam Limitations: no limitations General appearance: alert, in no apparent distress Head exam: Present: atraumatic, normocephalic, normal inspection Eye exam: Present: normal appearance, PERRL, EOMI. Absent: nystagmus Pupils: Present: normal accommodation ENT exam: Present: normal exam, normal oropharynx, mucous membranes moist Neck exam: Present: normal inspection, full ROM Respiratory exam: Present: normal lung sounds bilaterally. Absent: respiratory distress, wheezes Cardiovascular Exam: Present: regular rate, normal rhythm, normal heart sounds Extremities exam: Present: normal inspection, full ROM Back exam: Present: normal inspection, full ROM Neurological exam: Present: alert, oriented X3, CN II-XII intact, normal gait Psychiatric exam: Present: normal affect, normal mood Skin exam: Present: warm, dry, intact, normal color Course Vital Signs 06/09/19 23:46 Temperature 98 F Pulse Rate 111 H Respiratory 18 Rate Blood Pressure 154/98 O2 Sat by Pulse 98 Oximetry Procedures - Nerve Block Consent Obtained: verbal consent Local Anesthetic Used: Lidocaine 1% Amount of anesthesia used: 3 Nerve Blocks: other (Sphenopalatine block) Procedure Successful: Yes Complications: none Patient Tolerated Procedure: well, no complications Medical Decision Making - Medical Decision Making Patient is a 49-year-old female with history of recurrent migraines presenting to emergency Department with a chief complaint of a migraine. Patient is well- known to the ED for recurrent migraines. Patient was discharged this morning. Neurological exam unremarkable. Patient states this headache feels exactly the same as her typical migraines although she was not able to abort it earlier today. No red flags. Sphenopalatine block performed with lidocaine. Patient reports improvement of symptoms. Patient also given Zofran and Dilaudid. Patient does report improvement in symptoms and will be discharged. Return parameters were thoroughly discussed with patient was standing agreeable. Case discussed with physician. 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 Return to emergency department if symptoms worsen. Is patient prescribed a controlled substance at d/c from ED?: No Referrals: José Reece MD [Primary Care Provider] - 1-2 days Time of Disposition: 00:26
== END 2019-06-10 00:38 | disposition home or self-care (01) ==
LOC: EC 23:41
DX: G43.009 Migraine without aura, not intractable, without status migrainosus (principal); E78.5 Hyperlipidemia, unspecified; I10 Essential (primary) hypertension; G40.909 Epilepsy, unspecified, not intractable, without status epilepticus; G89.29 Other chronic pain; F31.9 Bipolar disorder, unspecified; F17.200 Nicotine dependence, unspecified, uncomplicated; Z88.0 Allergy status to penicillin; Z88.1 Allergy status to other antibiotic agents; Z88.2 Allergy status to sulfonamides; Z88.5 Allergy status to narcotic agent; Z88.6 Allergy status to analgesic agent; Z88.8 Allergy status to other drugs, medicaments and biological substances; Z91.02 Food additives allergy status; Z91.040 Latex allergy status; Z79.891 Long term (current) use of opiate analgesic; Z79.899 Other long term (current) drug therapy
CPT/HCPCS: 99283; 64450; 96372 ×2; J2405; J2001; J1170

== ENCOUNTER 2019-06-13 23:15 | Emergency (ER) | payer OTHER ==
[2019-06-14] MEDS ORDERED: SODIUM CHLORIDE 0.9% 1,000 ML IV ONE (00:05)
[2019-06-14] MEDS ORDERED: HYDROmorphone 1 MG/ML 1 ML SYRINGE IVP STA ×2 (00:05→01:19)
[2019-06-14] MEDS ORDERED: diphenhydrAMINE 50 MG/ML 1 ML VIAL IVP STA (00:05)
[2019-06-14] MEDS ORDERED: ONDANSETRON 4 MG/2 ML VIAL IVP STA (00:13)
[2019-06-14] MEDS ORDERED: LORazepam 2 MG/ML INJ IV STA (01:19)
--- NOTE | 2019-06-14 01:42 | ED ---
Headache HPI - General Chief Complaint: Headache Stated Complaint: Migraine-Vomiting Time Seen by Provider: 06/13/19 23:46 Mode of arrival: ambulatory Limitations: no limitations - History of Present Illness Initial Comments: 49-year-old female patient past medical history significant for migraine headaches presents to the emergency department today for evaluation of migraine. Patient states that she's had a headache for the last 12 hours. States she did take her home medications including Percocet and Zofran without relief. Patient states she's been vomiting and unable to keep down any food or fluids. Patient states she does have a history of migraine headaches, her symptoms are consistent with her usual migraine pattern. Symptoms include sensitivity to light and sound, nausea, vomiting, and blurred vision. Denies any dizziness or weakness. Denies numbness or tingling to the extremities. Denies any falls or recent head injury. Patient denies any recent rash, fever, chills, shortness breath, chest pain, abdominal pain, diarrhea, constipation, back pain, hematuria, dysuria, urinary urgency, urinary frequency, or any other complaints. - Related Data Home Medications Medication Instructions Recorded Confirmed Atorvastatin [Lipitor] 40 mg PO HS 04/02/17 06/01/19 Lacosamide [Vimpat] 100 mg PO BID 06/04/17 06/01/19 HYDROcodone/APAP 7.5-325MG [[place] 1 tab PO TID PRN 07/06/17 06/01/19 7.5-325] amLODIPine [Norvasc] 5 mg PO DAILY 10/26/18 06/01/19 Ergocalciferol [Vitamin D2 50,000 unit PO WE 01/09/19 06/01/19 (DRISDOL)] Cyclobenzaprine [Flexeril] 5 mg PO DAILY PRN 04/27/19 06/01/19 Divalproex ER [Depakote ER] 500 mg PO HS 06/01/19 06/01/19 hydrOXYzine PAMOATE [Vistaril] 25 mg PO BID PRN 06/01/19 06/01/19 Previous Rx's Medication Instructions Recorded Albuterol Inhaler [Ventolin Hfa 1 - 2 puff INHALATION RT-Q6H PRN 06/02/19 Inhaler] #1 inhaler Aspirin 81 mg PO DAILY #30 chew 02/26/20 Beclomethasone Dipropionate [Qvar 1 puff INHALATION BID #1 inhaler 06/02/19 40 mcg Redihaler] Ipratropium [place] [Atrovent Hfa] 2 puff INHALATION TID #1 inhaler 06/02/19 Allergies Allergy/AdvReac Type Severity Reaction Status Date / Time dihydroergotamine Allergy Unknown Unknown Verified 06/13/19 23:20 [From Migranal] gabapentin [From Neurontin] Allergy Itching/Swe Verified 06/13/19 23:20 lling latex Allergy Anaphylaxis Verified 06/13/19 23:20 naproxen [From Naprosyn] Allergy Anaphylaxis Verified 06/13/19 23:20 Penicillins Allergy Anaphylaxis Verified 06/13/19 23:20 prednisone Allergy Swelling Verified 06/13/19 23:20 quetiapine fumarate Allergy Itching, Verified 06/13/19 23:20 [From Seroquel] leg cramps rofecoxib [From Vioxx] Allergy Itching, Verified 06/13/19 23:20 leg cramps terfenadine [From Seldane] Allergy Rash/Hives Verified 06/13/19 23:20 tramadol Allergy Nausea & Verified 06/13/19 23:20 Vomiting/LEG CRAMPS/HEART FLUTTERS calcium carbonate [From DHEA] AdvReac Chest Pain Verified 06/13/19 23:20 calcium phosphate,dibasic AdvReac Chest Pain Verified 06/13/19 23:20 [From DHEA] clindamycin AdvReac muscle Verified 06/13/19 23:20 cramps clonidine AdvReac fast Verified 06/13/19 23:20 heartbeat, migraine dextromethorphan HBr AdvReac face/neck Verified 06/13/19 23:20 [From NyQuil] flushing diazepam [From Valium] AdvReac Nausea & Verified 06/13/19 23:20 Vomiting divalproex sodium AdvReac Nausea & Verified 06/13/19 23:20 [From Depakote] Vomiting doxylamine [From NyQuil] AdvReac face "beet Verified 06/13/19 23:20 red", elevated temp. ibuprofen [From Motrin] AdvReac abdominal Verified 06/13/19 23:20 & muscle cramps indomethacin [From Indocin] AdvReac Abdominal Verified 06/13/19 23:20 Pain,N/V ketorolac tromethamine AdvReac "built up Verified 06/13/19 23:20 [From Toradol] in system", had to be given something to reverse lorazepam [From Ativan] AdvReac Nausea & Verified 06/13/19 23:20 Vomiting metoclopramide HCl AdvReac muscle Verified 06/13/19 23:20 [From Reglan] cramps nortriptyline [From Pamelor] AdvReac Chest Pain Verified 06/13/19 23:20 prasterone (DHEA) [From DHEA] AdvReac Chest Pain Verified 06/13/19 23:20 prochlorperazine AdvReac leg Verified 06/13/19 23:20 [From Compazine] cramping propranolol AdvReac Chest Pain Verified 06/13/19 23:20 pseudoephedrine HCl AdvReac face "beet Verified 06/13/19 23:20 [From NyQuil] red", elevated temp. quetiapine [From Seroquel] AdvReac leg Verified 06/13/19 23:20 cramping sumatriptan [From Imitrex] AdvReac migrane Verified 06/13/19 23:20 sumatriptan succinate AdvReac migrane Verified 06/13/19 23:20 [From Imitrex] topiramate [From Topamax] AdvReac "built up Verified 06/13/19 23:20 in system", had to be given something to reverse trazodone AdvReac "built up Verified 06/13/19 23:20 in system", had to be given something to reverse zolpidem tartrate AdvReac "Became Verified 06/13/19 23:20 [From Ambien] violent with no memory" zonisamide [From Zonegran] AdvReac inability Verified 06/13/19 23:20 to eat artificial sweetener AdvReac SEVERE Uncoded 06/13/19 23:20 MIGRAINE HEADACHE Review of Systems ROS Statement: Those systems with pertinent positive or pertinent negative responses have been documented in the HPI. ROS Other: All systems not noted in ROS Statement are negative. Past Medical History Past Medical History: Hyperlipidemia, Hypertension, Seizure Disorder Additional Past Medical History / Comment(s): Migraines, viral meningitis x3 as a child, 1995, 2000, chronic back pain, nerve blocks 08/2016 and 12/2016. Last seizure 05/26/19, "ABSENT SEIZURES. HX TACHYCARDIA, GB/CIPD, PTSD History of Any Multi-Drug Resistant Organisms: None Reported Past Surgical History: Appendectomy, Section, Cholecystectomy, Hernia Repair, Hysterectomy, Orthopedic Surgery, Tonsillectomy, Tubal Ligation Additional Past Surgical History / Comment(s): Hiatal Hernia, umbilical hernia repair, left rotator cuff repair, bilateral knee scopes, pain clinic procedures- occipital nerve block. abd exploratory sx(endometreosis), 3 abd scopes 1981, 1989, 1991), lumbar puncture. EGD. nerve biopsy, Past Anesthesia/Blood Transfusion Reactions: No Reported Reaction Additional Past Anesthesia/Blood Transfusion Reaction / Comment(s): Claustrophobic Past Psychological History: Anxiety, Bipolar, Panic Disorder, PTSD Smoking Status: Current every day smoker Past Alcohol Use History: None Reported Past Drug Use History: None Reported - Past Family History Mother Family Medical History: Cancer, Dementia, Diabetes Mellitus, GERD/Reflux, Hyperlipidemia, Hypertension, Thyroid Disorder Additional Family Medical History / Comment(s): Quad CABG, cardiac stents, toes ampuated. Father History Unknown: Yes Family Medical History: No Reported History General Exam Limitations: no limitations General appearance: alert, in no apparent distress, other (This is a well- developed, well-nourished adult female patient in no acute distress. Vital signs upon presentation are temperature 97.7F, pulse 112, respirations 20, blood pressure 145/100, pulse ox 99% on room air) Eye exam: Present: normal appearance, PERRL, EOMI. Absent: scleral icterus, conjunctival injection, nystagmus, periorbital swelling ENT exam: Present: normal exam, normal oropharynx, mucous membranes moist Neck exam: Present: normal inspection. Absent: tenderness, meningismus, lymphadenopathy Respiratory exam: Present: normal lung sounds bilaterally. Absent: respiratory distress, wheezes, rales, rhonchi, stridor Cardiovascular Exam: Present: regular rate, normal rhythm, normal heart sounds. Absent: systolic murmur, diastolic murmur, rubs, gallop, clicks GI/Abdominal exam: Present: soft, normal bowel sounds. Absent: distended, tenderness, guarding, rebound, rigid Neurological exam: Present: alert, oriented X3, CN II-XII intact, other ( Strength in all 4 extremities is 5/5) Psychiatric exam: Present: normal affect, normal mood Skin exam: Present: warm, dry, intact, normal color. Absent: rash Course Vital Signs 06/13/19 06/14/19 23:18 02:19 Temperature 97.7 F 97.4 F L Pulse Rate 112 H 110 H Respiratory 20 18 Rate Blood Pressure 145/100 117/81 O2 Sat by Pulse 99 95 Oximetry Medical Decision Making - Medical Decision Making 49-year-old female patient presented to the emergency department today for evaluation of migraine headache. Physical examination is unremarkable. She is neurologically intact with no focal deficits. Patient does have history of migraines, her current symptoms are consistent with her usual migraine pattern. There are no red flag symptoms. She was given IV fluids, IV medications. She does report mild improvement of symptoms. She'll be discharged. The primary care physician for recheck in the morning. Return parameters were discussed in detail. She verbalizes understanding and agrees this plan. Disposition Clinical Impression: Migraine headache Disposition: HOME SELF-CARE Condition: Good Instructions (If sedation given, give patient instructions): Migraine Headache (ED) Additional Instructions: Rest. Increase fluids. Follow up with primary care physician for recheck in 1- 2 days. Return to the emergency department immediately for any new, worsening, or concerning symptoms. Is patient prescribed a controlled substance at d/c from ED?: No Referrals: José Reece MD [Primary Care Provider] - 1-2 days Time of Disposition: 01:42
[2019-06-14 02:24] VITALS: BP 117/81; PULSE 110; RESP 18; TEMP 97.4
== END 2019-06-14 02:24 | disposition home or self-care (01) ==
LOC: EC 23:15
DX: G43.909 Migraine, unspecified, not intractable, without status migrainosus (principal); E78.5 Hyperlipidemia, unspecified; I10 Essential (primary) hypertension; G40.909 Epilepsy, unspecified, not intractable, without status epilepticus; G89.29 Other chronic pain; F31.9 Bipolar disorder, unspecified; F17.200 Nicotine dependence, unspecified, uncomplicated; Z88.0 Allergy status to penicillin; Z88.1 Allergy status to other antibiotic agents; Z88.2 Allergy status to sulfonamides; Z88.5 Allergy status to narcotic agent; Z88.6 Allergy status to analgesic agent; Z88.8 Allergy status to other drugs, medicaments and biological substances; Z91.02 Food additives allergy status; Z91.040 Latex allergy status; Z79.899 Other long term (current) drug therapy
CPT/HCPCS: 99283; 96374; 96375 ×4; 96376; 96361; J2060; J1200; J2405; J1642; J1170

== ENCOUNTER 2019-08-08 14:07 | Emergency (ER) | payer OTHER ==
[2019-08-08 14:12] VITALS: RESP 18; TEMP 98.2
[2019-08-08] MEDS ORDERED: SODIUM CHLORIDE 0.9% 1,000 ML IV STA (14:24)
[2019-08-08] MEDS ORDERED: ONDANSETRON 4 MG/2 ML VIAL IVP STA (14:24)
[2019-08-08] MEDS ORDERED: diphenhydrAMINE 50 MG/ML 1 ML VIAL IVP STA (14:24)
[2019-08-08] MEDS ORDERED: HYDROmorphone 0.5 MG/0.5 ML SYRINGE IVP STA (14:25)
--- NOTE | 2019-08-08 14:27 | ED ---
General Adult HPI - General Source: patient Mode of arrival: ambulatory Limitations: no limitations <ElyssaZay D - Last Filed: 08/08/19 14:42> <Jose Antonio Duffy - Last Filed: 08/08/19 16:35> - General Chief complaint: Headache Stated complaint: Migraine Time Seen by Provider: 08/08/19 14:17 - History of Present Illness Initial comments: Dictation was produced using [employer] dictation software. please excuse any grammatical, word or spelling errors. 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 History of Present Illness: Patient is a 49-year-old female she has past medical history of migraines. Patient states she suffers from migraines often. She does see a neurologist Dr. Cid for outpatient management of her headaches. Patient states that over the last 4 days she's been having a headache. She reports that told cranial periods worsened by light and sound. Patient states is typical of her usual headaches. She is on the waiting list for a [facility] migraine headache clinic. Patient is not taking outpatient medications for headache. She reports that she comes often for headaches to the emergency room. She adamantly reports that this is of her usual headaches. Denies any thunderclap nature to it. She states it is not the worse headache of her life. The ROS documented in this emergency department record has been reviewed and confirmed by me. Those systems with pertinent positive or negative responses have been documented in the HPI. All other systems are other negative and/or noncontributory. PHYSICAL EXAM: General Impression: Alert and oriented x3, acute distress secondary to pain HEENT: Normocephalic atraumatic, extra-ocular movements intact, pupils equal and reactive to light bilaterally, mucous membranes moist. Cardiovascular: Heart regular rate and rhythm Chest: Able to complete full sentences, no retractions, no tachypnea Abdomen: abdomen soft, non-tender, non-distended, no organomegaly Musculoskeletal: Pulses present and equal in all extremities, no peripheral edema Motor: no focal deficits noted Neurological: CN II-XII grossly intact, no focal motor or sensory deficits noted Skin: Intact with no visualized rashes Psych: Normal affect and mood ED course: 49-year-old female presents with her usual headache symptoms. Patient suffers from frequent and severe migraines disorder. Vital signs upon arrival shows heart rate of 112, respiratory signs within acceptable limits. Patient given headache cocktail. Patient care will be signed out to Dr. Duffy who is relieving my shift. (Zay Bergeron) Patient was given a headache cocktail prior to my arrival and patient still was having headaches I gave her Phenergan she felt as though that would be enough and was okay to be discharged home. Patient will follow-up with Dr. Gallagher's office tomorrow. (Jose Antonio Duffy) - Related Data Home Medications Medication Instructions Recorded Confirmed Atorvastatin [Lipitor] 40 mg PO HS 04/02/17 06/01/19 Lacosamide [Vimpat] 100 mg PO BID 06/04/17 06/01/19 HYDROcodone/APAP 7.5-325MG [[place] 1 tab PO TID PRN 07/06/17 06/01/19 7.5-325] amLODIPine [Norvasc] 5 mg PO DAILY 10/26/18 06/01/19 Ergocalciferol [Vitamin D2 50,000 unit PO WE 01/09/19 06/01/19 (DRISDOL)] Cyclobenzaprine [Flexeril] 5 mg PO DAILY PRN 04/27/19 06/01/19 Divalproex ER [Depakote ER] 500 mg PO HS 06/01/19 06/01/19 hydrOXYzine PAMOATE [Vistaril] 25 mg PO BID PRN 06/01/19 06/01/19 Previous Rx's Medication Instructions Recorded Albuterol Inhaler ([place]) [Ventolin 1 - 2 puff INHALATION RT-Q6H PRN 06/02/19 Hfa Inhaler (Mhu)] #1 inhaler Aspirin 81 mg PO DAILY #30 chew 06/02/19 Beclomethasone Dipropionate [Qvar 1 puff INHALATION BID #1 inhaler 06/02/19 40 mcg Redihaler] Ipratropium [place] [Atrovent Hfa] 2 puff INHALATION TID #1 inhaler 06/02/19 Allergies Allergy/AdvReac Type Severity Reaction Status Date / Time dihydroergotamine Allergy Unknown Unknown Verified 06/13/19 23:20 [From Migranal] gabapentin [From Neurontin] Allergy Itching/Swe Verified 06/13/19 23:20 lling latex Allergy Anaphylaxis Verified 06/13/19 23:20 naproxen [From Naprosyn] Allergy Anaphylaxis Verified 06/13/19 23:20 Penicillins Allergy Anaphylaxis Verified 06/13/19 23:20 prednisone Allergy Swelling Verified 06/13/19 23:20 quetiapine fumarate Allergy Itching, Verified 06/13/19 23:20 [From Seroquel] leg cramps rofecoxib [From Vioxx] Allergy Itching, Verified 06/13/19 23:20 leg cramps terfenadine [From Seldane] Allergy Rash/Hives Verified 06/13/19 23:20 tramadol Allergy Nausea & Verified 06/13/19 23:20 Vomiting/LEG CRAMPS/HEART FLUTTERS calcium carbonate [From DHEA] AdvReac Chest Pain Verified 06/13/19 23:20 calcium phosphate,dibasic AdvReac Chest Pain Verified 06/13/19 23:20 [From DHEA] clindamycin AdvReac muscle Verified 06/13/19 23:20 cramps clonidine AdvReac fast Verified 06/13/19 23:20 heartbeat, migraine dextromethorphan HBr AdvReac face/neck Verified 06/13/19 23:20 [From NyQuil] flushing diazepam [From Valium] AdvReac Nausea & Verified 06/13/19 23:20 Vomiting divalproex sodium AdvReac Nausea & Verified 06/13/19 23:20 [From Depakote] Vomiting doxylamine [From NyQuil] AdvReac face "beet Verified 06/13/19 23:20 red", elevated temp. ibuprofen [From Motrin] AdvReac abdominal Verified 06/13/19 23:20 & muscle cramps indomethacin [From Indocin] AdvReac Abdominal Verified 06/13/19 23:20 Pain,N/V ketorolac tromethamine AdvReac "built up Verified 06/13/19 23:20 [From Toradol] in system", had to be given something to reverse lorazepam [From Ativan] AdvReac Nausea & Verified 06/13/19 23:20 Vomiting metoclopramide HCl AdvReac muscle Verified 06/13/19 23:20 [From Reglan] cramps nortriptyline [From Pamelor] AdvReac Chest Pain Verified 06/13/19 23:20 prasterone (DHEA) [From DHEA] AdvReac Chest Pain Verified 06/13/19 23:20 prochlorperazine AdvReac leg Verified 06/13/19 23:20 [From Compazine] cramping propranolol AdvReac Chest Pain Verified 06/13/19 23:20 pseudoephedrine HCl AdvReac face "beet Verified 06/13/19 23:20 [From NyQuil] red", elevated temp. quetiapine [From Seroquel] AdvReac leg Verified 06/13/19 23:20 cramping sumatriptan [From Imitrex] AdvReac migrane Verified 06/13/19 23:20 sumatriptan succinate AdvReac migrane Verified 06/13/19 23:20 [From Imitrex] topiramate [From Topamax] AdvReac "built up Verified 06/13/19 23:20 in system", had to be given something to reverse trazodone AdvReac "built up Verified 06/13/19 23:20 in system", had to be given something to reverse zolpidem tartrate AdvReac "Became Verified 06/13/19 23:20 [From Ambien] violent with no memory" zonisamide [From Zonegran] AdvReac inability Verified 06/13/19 23:20 to eat artificial sweetener AdvReac SEVERE Uncoded 06/13/19 23:20 MIGRAINE HEADACHE Review of Systems ROS Other: All systems not noted in ROS Statement are negative. <Zay Bergeron - Last Filed: 08/08/19 14:42> ROS Other: All systems not noted in ROS Statement are negative. <Jose Antonio Duffy - Last Filed: 08/08/19 16:35> ROS Statement: Those systems with pertinent positive or pertinent negative responses have been documented in the HPI. Past Medical History Past Medical History: Hyperlipidemia, Hypertension, Seizure Disorder Additional Past Medical History / Comment(s): Migraines, viral meningitis x3 as a child, 1995, 2000, chronic back pain, nerve blocks 08/2016 and 12/2016. Last seizure 05/26/19, "ABSENT SEIZURES. HX TACHYCARDIA, GB/CIPD, PTSD History of Any Multi-Drug Resistant Organisms: None Reported Past Surgical History: Appendectomy, Section, Cholecystectomy, Hernia Repair, Hysterectomy, Orthopedic Surgery, Tonsillectomy, Tubal Ligation Additional Past Surgical History / Comment(s): Hiatal Hernia, umbilical hernia repair, left rotator cuff repair, bilateral knee scopes, pain clinic procedures- occipital nerve block. abd exploratory sx(endometreosis), 3 abd scopes 1981, 1989, 1991), lumbar puncture. EGD. nerve biopsy, Past Anesthesia/Blood Transfusion Reactions: No Reported Reaction Additional Past Anesthesia/Blood Transfusion Reaction / Comment(s): Claustrophobic Past Psychological History: Anxiety, Bipolar, Panic Disorder, PTSD Smoking Status: Current every day smoker Past Alcohol Use History: None Reported Past Drug Use History: None Reported - Past Family History Mother Family Medical History: Cancer, Dementia, Diabetes Mellitus, GERD/Reflux, Hyperlipidemia, Hypertension, Thyroid Disorder Additional Family Medical History / Comment(s): Quad CABG, cardiac stents, toes ampuated. Father History Unknown: Yes Family Medical History: No Reported History <Zay Bergeron - Last Filed: 08/08/19 14:42> General Exam Limitations: no limitations <Zay Bergeron - Last Filed: 08/08/19 14:42> Course Vital Signs 08/08/19 14:10 Temperature 98.2 F Pulse Rate 112 H Respiratory 18 Rate Blood Pressure 137/82 O2 Sat by Pulse 97 Oximetry Disposition <Zay Bergeron - Last Filed: 08/08/19 14:42> Is patient prescribed a controlled substance at d/c from ED?: No Time of Disposition: 16:33 <Jose Antonio Duffy - Last Filed: 08/08/19 16:35> Clinical Impression: Chronic headaches Disposition: HOME SELF-CARE Instructions (If sedation given, give patient instructions): Migraine Headache (ED) Referrals: Eber Cid MD [STAFF PHYSICIAN] - 1-2 days
[2019-08-08] MEDS ORDERED: PROMETHAZINE INJ 25 MG/ML 1 ML VIAL IM STA (16:27)
[2019-08-08] MEDS ORDERED: KETOROLAC 30 MG/ML 1 ML VIAL IVP STA (16:27)
[2019-08-08 16:48] VITALS: BP 130/78; PULSE 98
== END 2019-08-08 16:37 | disposition home or self-care (01) ==
LOC: EC 14:07
DX: G43.909 Migraine, unspecified, not intractable, without status migrainosus (principal); G89.29 Other chronic pain; I10 Essential (primary) hypertension; E78.5 Hyperlipidemia, unspecified; G40.909 Epilepsy, unspecified, not intractable, without status epilepticus; F41.0 Panic disorder [episodic paroxysmal anxiety]; F31.9 Bipolar disorder, unspecified; F17.200 Nicotine dependence, unspecified, uncomplicated
CPT/HCPCS: 99283; 96374; 96375 ×2; 96361; J1200; J2405; J1170

== ENCOUNTER 2019-09-20 21:49 | Emergency (ER) | payer OTHER ==
[2019-09-20 21:53] VITALS: RESP 18
[2019-09-20] MEDS ORDERED: HYDROmorphone 1 MG/ML 1 ML SYRINGE IVP STA ×2 (22:34→23:38)
[2019-09-20] MEDS ORDERED: diphenhydrAMINE 50 MG/ML 1 ML VIAL IVP STA (22:34)
[2019-09-20] MEDS ORDERED: SODIUM CHLORIDE 0.9% 1,000 ML IV ONE (22:35)
[2019-09-20] MEDS ORDERED: ONDANSETRON 4 MG/2 ML VIAL IVP STA (22:35)
--- NOTE | 2019-09-20 23:54 | ED ---
General Adult HPI - General Chief complaint: Headache Stated complaint: Headache Time Seen by Provider: 09/20/19 21:57 Source: patient, RN notes reviewed, old records reviewed Mode of arrival: ambulatory Limitations: no limitations - History of Present Illness Initial comments: 49-year-old female patient presents to ED for chief complaint of migraine heada jalyn. Patient has history of migraine headaches. Patient reports that for the last 6 days she was a waxing and waning migraine headache which is extremely comfortable. Patient reports that his on the right side of her skull region. Reports that symptoms are identical to her migraine headaches in the past. Denies any new or concerning features. Denies any red flag symptoms. 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 Systemic: Pt denies fatigue, fever/chills, rash. Pt denies weakness, night sweats, weight loss. Neuro: Pt denies visual disturbances, syncope or pre-syncope. HEENT: Pt denies ocular discharge or irritation, otalgia, rhinorrhea, pharyngitis or notable lymphadenopathy. Cardiopulmonary: Pt denies chest pain, SOB, heart palpitations, dyspnea on exertion. Abdominal/GI: Pt denies abdominal pain, n/v/d. : Pt denies dysuria, burning w/ urination, frequency/urgency. Denies new onset urinary or bowel incontinence. MSK: Pt denies myalgia. Neuro: Pt denies new onset weakness, paresthesias. - Related Data Home Medications Medication Instructions Recorded Confirmed Atorvastatin [Lipitor] 40 mg PO HS 04/02/17 06/01/19 Lacosamide [Vimpat] 100 mg PO BID 06/04/17 06/01/19 HYDROcodone/APAP 7.5-325MG [[place] 1 tab PO TID PRN 07/06/17 06/01/19 7.5-325] amLODIPine [Norvasc] 5 mg PO DAILY 10/26/18 06/01/19 Ergocalciferol [Vitamin D2 50,000 unit PO WE 01/09/19 06/01/19 (DRISDOL)] Cyclobenzaprine [Flexeril] 5 mg PO DAILY PRN 04/27/19 06/01/19 Divalproex ER [Depakote ER] 500 mg PO HS 06/01/19 06/01/19 hydrOXYzine PAMOATE [Vistaril] 25 mg PO BID PRN 06/01/19 06/01/19 Previous Rx's Medication Instructions Recorded Albuterol Inhaler (Mhu) [Ventolin 1 - 2 puff INHALATION RT-Q6H PRN 06/02/19 Hfa Inhaler (Mhu)] #1 inhaler Aspirin 81 mg PO DAILY #30 chew 06/02/19 Beclomethasone Dipropionate [Qvar 1 puff INHALATION BID #1 inhaler 06/02/19 40 mcg Redihaler] Ipratropium [place] [Atrovent Hfa] 2 puff INHALATION TID #1 inhaler 06/02/19 Allergies Allergy/AdvReac Type Severity Reaction Status Date / Time dihydroergotamine Allergy Unknown Unknown Verified 09/20/19 21:55 [From Migranal] gabapentin [From Neurontin] Allergy Itching/Swe Verified 09/20/19 21:55 lling latex Allergy Anaphylaxis Verified 09/20/19 21:55 naproxen [From Naprosyn] Allergy Anaphylaxis Verified 09/20/19 21:55 Penicillins Allergy Anaphylaxis Verified 09/20/19 21:55 prednisone Allergy Swelling Verified 09/20/19 21:55 quetiapine fumarate Allergy Itching, Verified 09/20/19 21:55 [From Seroquel] leg cramps rofecoxib [From Vioxx] Allergy Itching, Verified 09/20/19 21:55 leg cramps terfenadine [From Seldane] Allergy Rash/Hives Verified 09/20/19 21:55 tramadol Allergy Nausea & Verified 09/20/19 21:55 Vomiting/LEG CRAMPS/HEART FLUTTERS calcium carbonate [From DHEA] AdvReac Chest Pain Verified 09/20/19 21:55 calcium phosphate,dibasic AdvReac Chest Pain Verified 09/20/19 21:55 [From DHEA] clindamycin AdvReac muscle Verified 09/20/19 21:55 cramps clonidine AdvReac fast Verified 09/20/19 21:55 heartbeat, migraine dextromethorphan HBr AdvReac face/neck Verified 09/20/19 21:55 [From NyQuil] flushing diazepam [From Valium] AdvReac Nausea & Verified 09/20/19 21:55 Vomiting divalproex sodium AdvReac Nausea & Verified 09/20/19 21:55 [From Depakote] Vomiting doxylamine [From NyQuil] AdvReac face "beet Verified 09/20/19 21:55 red", elevated temp. ibuprofen [From Motrin] AdvReac abdominal Verified 09/20/19 21:55 & muscle cramps indomethacin [From Indocin] AdvReac Abdominal Verified 09/20/19 21:55 Pain,N/V ketorolac tromethamine AdvReac "built up Verified 09/20/19 21:55 [From Toradol] in system", had to be given something to reverse lorazepam [From Ativan] AdvReac Nausea & Verified 09/20/19 21:55 Vomiting metoclopramide HCl AdvReac muscle Verified 09/20/19 21:55 [From Reglan] cramps nortriptyline [From Pamelor] AdvReac Chest Pain Verified 09/20/19 21:55 prasterone (DHEA) [From DHEA] AdvReac Chest Pain Verified 09/20/19 21:55 prochlorperazine AdvReac leg Verified 09/20/19 21:55 [From Compazine] cramping propranolol AdvReac Chest Pain Verified 09/20/19 21:55 pseudoephedrine HCl AdvReac face "beet Verified 09/20/19 21:55 [From NyQuil] red", elevated temp. quetiapine [From Seroquel] AdvReac leg Verified 09/20/19 21:55 cramping sumatriptan [From Imitrex] AdvReac migrane Verified 09/20/19 21:55 sumatriptan succinate AdvReac migrane Verified 09/20/19 21:55 [From Imitrex] topiramate [From Topamax] AdvReac "built up Verified 09/20/19 21:55 in system", had to be given something to reverse trazodone AdvReac "built up Verified 09/20/19 21:55 in system", had to be given something to reverse zolpidem tartrate AdvReac "Became Verified 09/20/19 21:55 [From Ambien] violent with no memory" zonisamide [From Zonegran] AdvReac inability Verified 09/20/19 21:55 to eat artificial sweetener AdvReac SEVERE Uncoded 09/20/19 21:55 MIGRAINE HEADACHE Review of Systems ROS Statement: Those systems with pertinent positive or pertinent negative responses have been documented in the HPI. ROS Other: All systems not noted in ROS Statement are negative. Past Medical History Past Medical History: Hyperlipidemia, Hypertension, Seizure Disorder Additional Past Medical History / Comment(s): Migraines, viral meningitis x3 as a child, 1995, 2000, chronic back pain, nerve blocks 08/2016 and 12/2016. Last seizure 05/26/19, "ABSENT SEIZURES. HX TACHYCARDIA, GB/CIPD, PTSD History of Any Multi-Drug Resistant Organisms: None Reported Past Surgical History: Appendectomy, Section, Cholecystectomy, Hernia Repair, Hysterectomy, Orthopedic Surgery, Tonsillectomy, Tubal Ligation Additional Past Surgical History / Comment(s): Hiatal Hernia, umbilical hernia repair, left rotator cuff repair, bilateral knee scopes, pain clinic procedures- occipital nerve block. abd exploratory sx(endometreosis), 3 abd scopes 1981, 1989, 1991), lumbar puncture. EGD. nerve biopsy, Past Anesthesia/Blood Transfusion Reactions: No Reported Reaction Additional Past Anesthesia/Blood Transfusion Reaction / Comment(s): Claustrophobic Past Psychological History: Anxiety, Bipolar, Panic Disorder, PTSD Smoking Status: Current every day smoker Past Alcohol Use History: None Reported Past Drug Use History: None Reported - Past Family History Mother Family Medical History: Cancer, Dementia, Diabetes Mellitus, GERD/Reflux, Hyperlipidemia, Hypertension, Thyroid Disorder Additional Family Medical History / Comment(s): Quad CABG, cardiac stents, toes ampuated. Father History Unknown: Yes Family Medical History: No Reported History General Exam - General Exam Comments Initial Comments: Constitutional: NAD, AOX3, Pt has pleasant affect. HEENT: NC/AT, trachea midline, neck supple, no lymphadenopathy. Posterior pharynx non erythematous, without exudates. External ears appear normal, without discharge. Mucous membranes moist. Eyes PERRLA, EOM intact. There is no scleral icterus. No pallor noted. Cardiopulmonary: RRR, no murmurs, rubs or gallops, no JVD noted. Lungs CTAB in anterior and posterior martin. No peripheral edema. Abdominal exam: Abdomen soft and non-distended. Abdomen non-tender to palpation in all 4 quadrants. Bowel sounds active in LLQ. No hepatosplenomegaly. No ecchymosis Neuro: CN II-XII intact. No nuchal rigidity. No raccon eyes, no miller sign. No cervical spinal tenderness. NIH 0. Limitations: no limitations Course Vital Signs 09/20/19 09/20/19 21:51 23:48 Temperature 97.9 F Pulse Rate 117 H 101 H Respiratory 18 18 Rate Blood Pressure 124/92 115/87 O2 Sat by Pulse 97 98 Oximetry Medical Decision Making - Medical Decision Making 49-year-old female patient presents to ED for chief complaint of migraine headache. Patient has history of migraine headaches. Patient reports that for the last 6 days she was a waxing and waning migraine headache which is extremely comfortable. Patient reports that his on the right side of her skull region. Reports that symptoms are identical to her migraine headaches in the past. Denies any new or concerning features. Denies any red flag symptoms. Denies any red flag symptoms. 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 Patient vital signs stable, afebrile. Physical exam did not display any focal neurologic deficit. Patient is declining any sort of intracranial imaging. She is requesting headache cocktail. Patient was administered this. She is feeling much improved. Patient will be discharged to follow up with primary care provider as well as her headache specialist and will return to ED if condition worsens. Case discussed with Dr. An. Disposition Clinical Impression: Migraine headache Disposition: HOME SELF-CARE Condition: Stable Instructions (If sedation given, give patient instructions): Acute Headache (ED) Additional Instructions: Follow-up with primary care provider as well as headache specialist tomorrow. Return to ER if condition worsens. Is patient prescribed a controlled substance at d/c from ED?: No Referrals: José Reece MD [Primary Care Provider] - 1-2 days
[2019-09-21 00:30] VITALS: BP 118/82; PULSE 103; TEMP 98.2
== END 2019-09-21 00:30 | disposition home or self-care (01) ==
LOC: EC 21:49
DX: G43.909 Migraine, unspecified, not intractable, without status migrainosus (principal); E78.5 Hyperlipidemia, unspecified; I10 Essential (primary) hypertension; F41.9 Anxiety disorder, unspecified; G40.909 Epilepsy, unspecified, not intractable, without status epilepticus; F17.200 Nicotine dependence, unspecified, uncomplicated; Z79.899 Other long term (current) drug therapy; Z88.0 Allergy status to penicillin; Z88.1 Allergy status to other antibiotic agents; Z88.6 Allergy status to analgesic agent; Z88.8 Allergy status to other drugs, medicaments and biological substances; Z91.040 Latex allergy status
CPT/HCPCS: 99283; 96374; 96375 ×2; 96376; 96361; J1200; J2405; J1170

== ENCOUNTER 2019-10-11 14:30 | Emergency (ER) | payer OTHER ==
[2019-10-11 14:34] VITALS: RESP 18
[2019-10-11] MEDS ORDERED: diphenhydrAMINE 50 MG/ML 1 ML VIAL IVP STA (14:52)
[2019-10-11] MEDS ORDERED: ONDANSETRON 4 MG/2 ML VIAL IVP STA (14:52)
[2019-10-11] MEDS ORDERED: SODIUM CHLORIDE 0.9% 1,000 ML IV STA (14:52)
--- NOTE | 2019-10-11 14:52 | ED ---
General Adult HPI - General Chief complaint: Headache Stated complaint: Headache Time Seen by Provider: 10/11/19 14:39 Source: patient Mode of arrival: ambulatory Limitations: no limitations - History of Present Illness Initial comments: Dictation was produced using [employer] dictation software. please excuse any grammatical, word or spelling errors. This patient was cared for during a federal and state declared state of emergency secondary to Covid 19 Chief Complaint: 49-year-old female with past medical history of migraines presents with headache. History of Present Illness: This 49-year-old female she is well-known to the emergency department for multiple visitations for migraine. Presents today with headache. States that her headache is typical of her usual migraine attacks. Patient states she's also been vomiting. Patient describes phonophobia and photophobia. Denies any numbness any paresthesias to the arms or legs. She denies his having an unusual headache. States that his whole cranial. The ROS documented in this emergency department record has been reviewed and confirmed by me. Those systems with pertinent positive or negative responses have been documented in the HPI. All other systems are other negative and/or noncontributory. PHYSICAL EXAM: General Impression: Alert and oriented x3, not in acute distress HEENT: Normocephalic atraumatic, extra-ocular movements intact, pupils equal and reactive to light bilaterally, mucous membranes moist. Cardiovascular: Heart regular rate and rhythm Chest: Able to complete full sentences, no retractions, no tachypnea Abdomen: abdomen soft, non-tender, non-distended, no organomegaly Musculoskeletal: Pulses present and equal in all extremities, no peripheral edema Motor: no focal deficits noted Neurological: CN II-XII grossly intact, no focal motor or sensory deficits noted Skin: Intact with no visualized rashes Psych: Normal affect and mood ED course: 49-year-old female presents with migraine headache. Vital signs upon arrival are within acceptable limits. Patient given headache cocktail. Patient reevaluated in stable medical condition. She states that her headache is much better. Patient clear for discharge. She is advised follow-up with her migraine doctor/neurologist. Patient is agreeable with disposition. - Related Data Home Medications Medication Instructions Recorded Confirmed Atorvastatin [Lipitor] 40 mg PO HS 04/02/17 06/01/19 Lacosamide [Vimpat] 100 mg PO BID 06/04/17 06/01/19 HYDROcodone/APAP 7.5-325MG [[place] 1 tab PO TID PRN 07/06/17 06/01/19 7.5-325] amLODIPine [Norvasc] 5 mg PO DAILY 10/26/18 06/01/19 Ergocalciferol [Vitamin D2 50,000 unit PO WE 01/09/19 06/01/19 (DRISDOL)] Cyclobenzaprine [Flexeril] 5 mg PO DAILY PRN 04/27/19 06/01/19 Divalproex ER [Depakote ER] 500 mg PO HS 06/01/19 06/01/19 hydrOXYzine PAMOATE [Vistaril] 25 mg PO BID PRN 06/01/19 06/01/19 Previous Rx's Medication Instructions Recorded Albuterol Inhaler (Mhu) [Ventolin 1 - 2 puff INHALATION RT-Q6H PRN 06/02/19 Hfa Inhaler (Mhu)] #1 inhaler Aspirin 81 mg PO DAILY #30 chew 06/02/19 Beclomethasone Dipropionate [Qvar 1 puff INHALATION BID #1 inhaler 06/02/19 40 mcg Redihaler] Ipratropium [place] [Atrovent Hfa] 2 puff INHALATION TID #1 inhaler 06/02/19 Allergies Allergy/AdvReac Type Severity Reaction Status Date / Time dihydroergotamine Allergy Unknown Unknown Verified 10/11/19 14:32 [From Migranal] gabapentin [From Neurontin] Allergy Itching/Swe Verified 10/11/19 14:32 lling latex Allergy Anaphylaxis Verified 10/11/19 14:32 naproxen [From Naprosyn] Allergy Anaphylaxis Verified 10/11/19 14:32 Penicillins Allergy Anaphylaxis Verified 10/11/19 14:32 prednisone Allergy Swelling Verified 10/11/19 14:32 quetiapine fumarate Allergy Itching, Verified 10/11/19 14:32 [From Seroquel] leg cramps rofecoxib [From Vioxx] Allergy Itching, Verified 10/11/19 14:32 leg cramps terfenadine [From Seldane] Allergy Rash/Hives Verified 10/11/19 14:32 tramadol Allergy Nausea & Verified 10/11/19 14:32 Vomiting/LEG CRAMPS/HEART FLUTTERS calcium carbonate [From DHEA] AdvReac Chest Pain Verified 10/11/19 14:32 calcium phosphate,dibasic AdvReac Chest Pain Verified 10/11/19 14:32 [From DHEA] clindamycin AdvReac muscle Verified 10/11/19 14:32 cramps clonidine AdvReac fast Verified 10/11/19 14:32 heartbeat, migraine dextromethorphan HBr AdvReac face/neck Verified 10/11/19 14:32 [From NyQuil] flushing diazepam [From Valium] AdvReac Nausea & Verified 10/11/19 14:32 Vomiting divalproex sodium AdvReac Nausea & Verified 10/11/19 14:32 [From Depakote] Vomiting doxylamine [From NyQuil] AdvReac face "beet Verified 10/11/19 14:32 red", elevated temp. ibuprofen [From Motrin] AdvReac abdominal Verified 10/11/19 14:32 & muscle cramps indomethacin [From Indocin] AdvReac Abdominal Verified 10/11/19 14:32 Pain,N/V ketorolac tromethamine AdvReac "built up Verified 10/11/19 14:32 [From Toradol] in system", had to be given something to reverse lorazepam [From Ativan] AdvReac Nausea & Verified 10/11/19 14:32 Vomiting metoclopramide HCl AdvReac muscle Verified 10/11/19 14:32 [From Reglan] cramps nortriptyline [From Pamelor] AdvReac Chest Pain Verified 10/11/19 14:32 prasterone (DHEA) [From DHEA] AdvReac Chest Pain Verified 10/11/19 14:32 prochlorperazine AdvReac leg Verified 10/11/19 14:32 [From Compazine] cramping propranolol AdvReac Chest Pain Verified 10/11/19 14:32 pseudoephedrine HCl AdvReac face "beet Verified 10/11/19 14:32 [From NyQuil] red", elevated temp. quetiapine [From Seroquel] AdvReac leg Verified 10/11/19 14:32 cramping sumatriptan [From Imitrex] AdvReac migrane Verified 10/11/19 14:32 sumatriptan succinate AdvReac migrane Verified 10/11/19 14:32 [From Imitrex] topiramate [From Topamax] AdvReac "built up Verified 10/11/19 14:32 in system", had to be given something to reverse trazodone AdvReac "built up Verified 10/11/19 14:32 in system", had to be given something to reverse zolpidem tartrate AdvReac "Became Verified 10/11/19 14:32 [From Ambien] violent with no memory" zonisamide [From Zonegran] AdvReac inability Verified 10/11/19 14:32 to eat artificial sweetener AdvReac SEVERE Uncoded 10/11/19 14:32 MIGRAINE HEADACHE Review of Systems ROS Statement: Those systems with pertinent positive or pertinent negative responses have been documented in the HPI. ROS Other: All systems not noted in ROS Statement are negative. Past Medical History Past Medical History: Hyperlipidemia, Hypertension, Seizure Disorder Additional Past Medical History / Comment(s): Migraines, viral meningitis x3 as a child, 1995, 2000, chronic back pain, nerve blocks 08/2016 and 12/2016. Last seizure 05/26/19, "ABSENT SEIZURES. HX TACHYCARDIA, GB/CIPD, PTSD History of Any Multi-Drug Resistant Organisms: None Reported Past Surgical History: Appendectomy, Section, Cholecystectomy, Hernia Repair, Hysterectomy, Orthopedic Surgery, Tonsillectomy, Tubal Ligation Additional Past Surgical History / Comment(s): Hiatal Hernia, umbilical hernia repair, left rotator cuff repair, bilateral knee scopes, pain clinic procedures- occipital nerve block. abd exploratory sx(endometreosis), 3 abd scopes 1981, 1989, 1991), lumbar puncture. EGD. nerve biopsy, Past Anesthesia/Blood Transfusion Reactions: No Reported Reaction Additional Past Anesthesia/Blood Transfusion Reaction / Comment(s): Claustrophobic Past Psychological History: Anxiety, Bipolar, Panic Disorder, PTSD Smoking Status: Current every day smoker Past Alcohol Use History: None Reported Past Drug Use History: None Reported - Past Family History Mother Family Medical History: Cancer, Dementia, Diabetes Mellitus, GERD/Reflux, Hyperlipidemia, Hypertension, Thyroid Disorder Additional Family Medical History / Comment(s): Quad CABG, cardiac stents, toes ampuated. Father History Unknown: Yes Family Medical History: No Reported History General Exam Limitations: no limitations Course Vital Signs 10/11/19 10/11/19 10/11/19 14:33 15:26 16:44 Temperature 98.1 F Pulse Rate 109 H 95 95 Respiratory 18 18 18 Rate Blood Pressure 149/103 151/107 151/107 O2 Sat by Pulse 99 95 100 Oximetry Disposition Clinical Impression: Headache Disposition: HOME SELF-CARE Condition: Good Instructions (If sedation given, give patient instructions): Acute Headache (ED) Is patient prescribed a controlled substance at d/c from ED?: No Referrals: Eber Cid MD [STAFF PHYSICIAN] - 1-2 days Time of Disposition: 17:24
[2019-10-11] MEDS ORDERED: HYDROmorphone 1 MG/ML 1 ML SYRINGE IVP STA ×2 (14:53→16:45)
[2019-10-11 17:48] VITALS: BP 150/101; PULSE 100; TEMP 98.2
== END 2019-10-11 18:17 | disposition home or self-care (01) ==
LOC: EC 14:30
DX: G43.909 Migraine, unspecified, not intractable, without status migrainosus (principal); E78.5 Hyperlipidemia, unspecified; I10 Essential (primary) hypertension; G40.909 Epilepsy, unspecified, not intractable, without status epilepticus; F41.9 Anxiety disorder, unspecified; F17.200 Nicotine dependence, unspecified, uncomplicated; Z79.899 Other long term (current) drug therapy; Z88.0 Allergy status to penicillin; Z88.1 Allergy status to other antibiotic agents; Z88.5 Allergy status to narcotic agent; Z88.6 Allergy status to analgesic agent; Z88.8 Allergy status to other drugs, medicaments and biological substances; Z91.040 Latex allergy status
CPT/HCPCS: 99283; 96374; 96375 ×3; 96376; 96361 ×2; J1200; J2405; J1170; J1642

== ENCOUNTER 2019-11-07 21:32 | Emergency (ER) | payer OTHER ==
[2019-11-07] MEDS ORDERED: HYDROmorphone 0.5 MG/0.5 ML SYRINGE IVP STA (21:57)
[2019-11-07] MEDS ORDERED: METOCLOPRAMIDE 5 MG/ML 2 ML VIAL IVP STA (21:57)
[2019-11-07] MEDS ORDERED: diphenhydrAMINE 50 MG/ML 1 ML VIAL IVP STA (21:57)
[2019-11-07] MEDS ORDERED: SODIUM CHLORIDE 0.9% 1,000 ML IV ONE (21:58)
[2019-11-07] MEDS ORDERED: ONDANSETRON 4 MG/2 ML VIAL IVP STA (22:13)
--- NOTE | 2019-11-07 22:16 | ED ---
Headache HPI - General Chief Complaint: Headache Stated Complaint: Migraine Time Seen by Provider: 11/07/19 21:37 Source: RN notes reviewed, old records reviewed Mode of arrival: ambulatory Limitations: no limitations - History of Present Illness Initial Comments: Patient's a 49-year-old female well-known to the emergency department today with complaints of migraine headache. Patient reports that she is having symptoms of headache after she had 4 seizures today and reports that she hit her head. She states that her headache feels typical of her usual migraines. She states that she has a known history of seizure disorder. She reports that today on her last one she fell backwards striking the right side of her head. She states that she is not on blood thinners. She reports this is not the worse headache of her life. She reports that her headache is worse with bright lights. - Related Data Home Medications Medication Instructions Recorded Confirmed RX: Atorvastatin [Lipitor] 40 mg PO HS 04/02/17 11/07/19 RX: Lacosamide [Vimpat] 100 mg PO BID 06/04/17 11/07/19 RX: HYDROcodone/APAP 7.5-325MG 1 tab PO TID PRN 07/06/17 11/07/19 [[place] 7.5-325] RX: amLODIPine [Norvasc] 5 mg PO HS 10/26/18 11/07/19 RX: Ergocalciferol [Vitamin D2 50,000 unit PO WE 01/09/19 11/07/19 (DRISDOL)] RX: Divalproex ER [Depakote ER] 500 mg PO HS 06/01/19 11/07/19 RX: hydrOXYzine pamoate [Vistaril] 25 mg PO BID 06/01/19 11/07/19 ARIPiprazole [Abilify] 5 mg PO DAILY 11/07/19 11/07/19 Albuterol Sulfate [Ventolin HFA] 1 - 2 puff INHALATION RT-Q6H PRN 11/07/19 11/07/19 Allergies Allergy/AdvReac Type Severity Reaction Status Date / Time dihydroergotamine Allergy Unknown Unknown Verified 11/07/19 22:46 [From Migranal] gabapentin [From Neurontin] Allergy Itching/Swe Verified 11/07/19 22:46 lling latex Allergy Anaphylaxis Verified 11/07/19 22:46 naproxen [From Naprosyn] Allergy Anaphylaxis Verified 11/07/19 22:46 Penicillins Allergy Anaphylaxis Verified 11/07/19 22:46 prednisone Allergy Swelling Verified 11/07/19 22:46 quetiapine fumarate Allergy Itching, Verified 11/07/19 22:46 [From Seroquel] leg cramps rofecoxib [From Vioxx] Allergy Itching, Verified 11/07/19 22:46 leg cramps terfenadine [From Seldane] Allergy Rash/Hives Verified 11/07/19 22:46 tramadol Allergy Nausea & Verified 11/07/19 22:46 Vomiting/LEG CRAMPS/HEART FLUTTERS calcium carbonate [From DHEA] AdvReac Chest Pain Verified 11/07/19 22:46 calcium phosphate,dibasic AdvReac Chest Pain Verified 11/07/19 22:46 [From DHEA] clindamycin AdvReac muscle Verified 11/07/19 22:46 cramps clonidine AdvReac fast Verified 11/07/19 22:46 heartbeat, migraine dextromethorphan HBr AdvReac face/neck Verified 11/07/19 22:46 [From NyQuil] flushing diazepam [From Valium] AdvReac Nausea & Verified 11/07/19 22:46 Vomiting divalproex sodium AdvReac Nausea & Verified 11/07/19 22:46 [From Depakote] Vomiting doxylamine [From NyQuil] AdvReac face "beet Verified 11/07/19 22:46 red", elevated temp. ibuprofen [From Motrin] AdvReac abdominal Verified 11/07/19 22:46 & muscle cramps indomethacin [From Indocin] AdvReac Abdominal Verified 11/07/19 22:46 Pain,N/V ketorolac tromethamine AdvReac "built up Verified 11/07/19 22:46 [From Toradol] in system", had to be given something to reverse lorazepam [From Ativan] AdvReac Nausea & Verified 11/07/19 22:46 Vomiting metoclopramide HCl AdvReac muscle Verified 11/07/19 22:46 [From Reglan] cramps nortriptyline [From Pamelor] AdvReac Chest Pain Verified 11/07/19 22:46 prasterone (DHEA) [From DHEA] AdvReac Chest Pain Verified 11/07/19 22:46 prochlorperazine AdvReac leg Verified 11/07/19 22:46 [From Compazine] cramping propranolol AdvReac Chest Pain Verified 11/07/19 22:46 pseudoephedrine HCl AdvReac face "beet Verified 11/07/19 22:46 [From NyQuil] red", elevated temp. quetiapine [From Seroquel] AdvReac leg Verified 11/07/19 22:46 cramping sumatriptan [From Imitrex] AdvReac migrane Verified 11/07/19 22:46 sumatriptan succinate AdvReac migrane Verified 11/07/19 22:46 [From Imitrex] topiramate [From Topamax] AdvReac "built up Verified 11/07/19 22:46 in system", had to be given something to reverse trazodone AdvReac "built up Verified 11/07/19 22:46 in system", had to be given something to reverse zolpidem tartrate AdvReac "Became Verified 11/07/19 22:46 [From Ambien] violent with no memory" zonisamide [From Zonegran] AdvReac inability Verified 11/07/19 22:46 to eat artificial sweetener AdvReac SEVERE Uncoded 11/07/19 22:46 MIGRAINE HEADACHE Review of Systems ROS Statement: Those systems with pertinent positive or pertinent negative responses have been documented in the HPI. ROS Other: All systems not noted in ROS Statement are negative. Past Medical History Past Medical History: Hyperlipidemia, Hypertension, Seizure Disorder Additional Past Medical History / Comment(s): Migraines, viral meningitis x3 as a child, 1995, 2000, chronic back pain, nerve blocks 08/2016 and 12/2016. Last seizure 05/26/19, "ABSENT SEIZURES. HX TACHYCARDIA, GB/CIPD, PTSD History of Any Multi-Drug Resistant Organisms: None Reported Past Surgical History: Appendectomy, Section, Cholecystectomy, Hernia Repair, Hysterectomy, Orthopedic Surgery, Tonsillectomy, Tubal Ligation Additional Past Surgical History / Comment(s): Hiatal Hernia, umbilical hernia repair, left rotator cuff repair, bilateral knee scopes, pain clinic procedures- occipital nerve block. abd exploratory sx(endometreosis), 3 abd scopes 1981, 1989, 1991), lumbar puncture. EGD. nerve biopsy, Past Anesthesia/Blood Transfusion Reactions: No Reported Reaction Additional Past Anesthesia/Blood Transfusion Reaction / Comment(s): Claustrophobic Past Psychological History: Anxiety, Bipolar, Panic Disorder, PTSD Smoking Status: Current every day smoker Past Alcohol Use History: None Reported Past Drug Use History: None Reported - Past Family History Mother Family Medical History: Cancer, Dementia, Diabetes Mellitus, GERD/Reflux, Hyperlipidemia, Hypertension, Thyroid Disorder Additional Family Medical History / Comment(s): Quad CABG, cardiac stents, toes ampuated. Father History Unknown: Yes Family Medical History: No Reported History General Exam - General Exam Comments Initial Comments: 49-year-old female. Alert and oriented 3. Photophobic. Limitations: no limitations General appearance: alert, in no apparent distress Head exam: Present: atraumatic, normocephalic, normal inspection Eye exam: Present: normal appearance, PERRL, EOMI, other (Patient is wearing glasses and I covering overhead. Sitting light makes her headache worse.). Absent: scleral icterus, conjunctival injection, periorbital swelling ENT exam: Present: normal exam, mucous membranes moist Neck exam: Present: normal inspection. Absent: tenderness, meningismus, lymphadenopathy Respiratory exam: Present: normal lung sounds bilaterally. Absent: respiratory distress, wheezes, rales, rhonchi, stridor Cardiovascular Exam: Present: regular rate, normal rhythm, normal heart sounds. Absent: systolic murmur, diastolic murmur, rubs, gallop, clicks GI/Abdominal exam: Present: soft, normal bowel sounds. Absent: distended, tenderness, guarding, rebound, rigid Extremities exam: Present: normal inspection, full ROM, normal capillary refill. Absent: tenderness, pedal edema, joint swelling, calf tenderness Back exam: Present: normal inspection Neurological exam: Present: alert, oriented X3, CN II-XII intact Expanded Patient oriented to: Present: person, place, time Speech: Present: fluid speech Cranial nerves: EOM's Intact: Normal, Facial Sensation: Normal Cerebellar function: Finger to Nose: Normal Upper motor neuron: Ferdinand Neglect: Normal, Pronator Drift: Normal Sensory exam: Upper Extremity Light Touch: Normal, Lower Extremity Light Touch: Normal Motor strength exam: RUE: 5, LUE: 5, RLE: 5, LLE: 5 Eye Response: (4) open spontaneously Motor Response: (6) obeys commands Verbal Response: (5) oriented Carrier Total: 15 Psychiatric exam: Present: normal affect, normal mood Skin exam: Present: warm, dry, intact, normal color. Absent: rash Course Vital Signs 11/07/19 21:34 Temperature 98.5 F Pulse Rate 108 H Respiratory 20 Rate Blood Pressure 153/100 O2 Sat by Pulse 97 Oximetry Medical Decision Making - Medical Decision Making 49 year old female, presents today with headache after head injury and seizure. Patient is given IV fluids, cocktail and does report improvement of her headache. She states symptoms are similar to previous migraines. At this time Patient CT of the brain was negative for acute process given the fact that she fell on her head. I discussed Patient needs follow-up with her primary care doctor and neurologist with persistent seizure disorder and migraines. She is alert and oriented and has no acute neurological deficits at this time. Patient is agreeable to treatment plan will comply. - Radiology Data Radiology results: report reviewed Normal unenhanced head CT. Disposition Clinical Impression: Seizure, Headache Disposition: HOME SELF-CARE Condition: Good Instructions (If sedation given, give patient instructions): Acute Headache (ED) Additional Instructions: Follow-up with PCP and neurology. Return to the ED if any alarming signs or symptoms occur. Is patient prescribed a controlled substance at d/c from ED?: No Referrals: José Reece MD [Primary Care Provider] - 1-2 days Time of Disposition: 23:04
--- NOTE | 2019-11-07 22:59 | CT ---
EXAMINATION TYPE: CT brain wo con DATE OF EXAM: 11/07/2019 COMPARISON: 03/17/2019 HISTORY: Syncope CT DLP: 1099.40 mGycm Automated exposure control for dose reduction was used. Ventricles and sulci appear normal. There is no mass effect nor midline shift. There is no sign of in tracranial hemorrhage. The calvarium is intact. There is no evidence of cerebral edema. Skull base is intact. IMPRESSION: Normal unenhanced head CT scan. No change.
[2019-11-07] MEDS ORDERED: HYDROmorphone 1 MG/ML 1 ML SYRINGE IVP STA (23:09)
[2019-11-08 00:04] VITALS: BP 137/87; PULSE 87; RESP 18; TEMP 98.6
== END 2019-11-08 00:04 | disposition home or self-care (01) ==
LOC: EC 21:32
DX: G43.909 Migraine, unspecified, not intractable, without status migrainosus (principal); G40.909 Epilepsy, unspecified, not intractable, without status epilepticus; F41.9 Anxiety disorder, unspecified; F31.9 Bipolar disorder, unspecified; F41.0 Panic disorder [episodic paroxysmal anxiety]; F43.10 Post-traumatic stress disorder, unspecified; E78.5 Hyperlipidemia, unspecified; I10 Essential (primary) hypertension; F17.200 Nicotine dependence, unspecified, uncomplicated; Z79.899 Other long term (current) drug therapy; Z88.0 Allergy status to penicillin; Z88.1 Allergy status to other antibiotic agents; Z88.2 Allergy status to sulfonamides; Z88.6 Allergy status to analgesic agent; Z88.8 Allergy status to other drugs, medicaments and biological substances; Z91.040 Latex allergy status
CPT/HCPCS: 70450; 99284; 96374; 96375 ×3; 96376; 96361 ×2; J1200; J2765; J2405; J1170 ×2

== ENCOUNTER 2019-11-11 20:39 | Emergency (ER) | payer OTHER ==
[2019-11-11] MEDS ORDERED: KETOROLAC 30 MG/ML 1 ML VIAL IVP STA (21:08)
[2019-11-11] MEDS ORDERED: SODIUM CHLORIDE 0.9% 1,000 ML IV STA (21:08)
[2019-11-11] MEDS ORDERED: MORPHINE SULFATE 4 MG/ML SYRINGE IVP STA ×2 (21:08→22:24)
[2019-11-11] MEDS ORDERED: diphenhydrAMINE 50 MG/ML 1 ML VIAL IVP STA (21:08)
[2019-11-11] MEDS ORDERED: ONDANSETRON 4 MG/2 ML VIAL IVP STA (21:10)
[2019-11-11 22:17] VITALS: BP 124/78; PULSE 100; RESP 18; TEMP 97.8
--- NOTE | 2019-11-11 22:29 | ED ---
Headache HPI - General Chief Complaint: Headache Stated Complaint: Headache Time Seen by Provider: 11/11/19 20:57 Mode of arrival: ambulatory Limitations: no limitations - History of Present Illness Initial Comments: Patient is a 49-year-old female presenting to the emergency Department with complaints of a headache that has been increasing over the past 2 days. Patient recently came to the ER 4 days ago for similar complaint. She states the headache did come down with some IV medication but states it never really went away and over the past 2 days it has been steadily increasing. Patient admits to nausea and vomiting as well. Patient did have a CT of the head performed 4 days ago which showed no acute process. Patient admits to light sensitivity. She denies any fever, chills, chest pain or shortness of breath. She admits to some mild abdominal cramping that is associated with the vomiting, no other abdominal pain or urinary complaints. She denies any blurry vision. She states her previous neurologist dropped her as the patient she does have an appointment with a new neurologist in approximately 2 weeks. She has no further complaints at this time. Upon arrival to the ER, patient was tachycardia, otherwise normal vitals. - Related Data Home Medications Medication Instructions Recorded Confirmed Atorvastatin [Lipitor] 40 mg PO HS 04/02/17 11/11/19 Lacosamide [Vimpat] 100 mg PO BID 06/04/17 11/11/19 HYDROcodone/APAP 7.5-325MG [[place] 1 tab PO TID PRN 07/06/17 11/11/19 7.5-325] amLODIPine [Norvasc] 5 mg PO HS 10/26/18 11/11/19 Ergocalciferol [Vitamin D2 50,000 unit PO WE 01/09/19 11/11/19 (DRISDOL)] Divalproex ER [Depakote ER] 500 mg PO HS 06/01/19 11/11/19 ARIPiprazole [Abilify] 5 mg PO DAILY 11/07/19 11/11/19 Albuterol Sulfate [Ventolin HFA] 1 - 2 puff INHALATION RT-Q6H PRN 11/07/19 11/11/19 LORazepam [Ativan] 0.5 mg PO BID PRN 11/11/19 11/11/19 Allergies Allergy/AdvReac Type Severity Reaction Status Date / Time dihydroergotamine Allergy Unknown Unknown Verified 11/11/19 21:37 [From Migranal] gabapentin [From Neurontin] Allergy Itching/Swe Verified 11/11/19 21:37 lling latex Allergy Anaphylaxis Verified 11/11/19 21:37 naproxen [From Naprosyn] Allergy Anaphylaxis Verified 11/11/19 21:37 Penicillins Allergy Anaphylaxis Verified 11/11/19 21:37 prednisone Allergy Swelling Verified 11/11/19 21:37 quetiapine fumarate Allergy Itching, Verified 11/11/19 21:37 [From Seroquel] leg cramps rofecoxib [From Vioxx] Allergy Itching, Verified 11/11/19 21:37 leg cramps terfenadine [From Seldane] Allergy Rash/Hives Verified 11/11/19 21:37 tramadol Allergy Nausea & Verified 11/11/19 21:37 Vomiting/LEG CRAMPS/HEART FLUTTERS calcium carbonate [From DHEA] AdvReac Chest Pain Verified 11/11/19 21:37 calcium phosphate,dibasic AdvReac Chest Pain Verified 11/11/19 21:37 [From DHEA] clindamycin AdvReac muscle Verified 11/11/19 21:37 cramps clonidine AdvReac fast Verified 11/11/19 21:37 heartbeat, migraine dextromethorphan HBr AdvReac face/neck Verified 11/11/19 21:37 [From NyQuil] flushing diazepam [From Valium] AdvReac Nausea & Verified 11/11/19 21:37 Vomiting divalproex sodium AdvReac Nausea & Verified 11/11/19 21:37 [From Depakote] Vomiting doxylamine [From NyQuil] AdvReac face "beet Verified 11/11/19 21:37 red", elevated temp. ibuprofen [From Motrin] AdvReac abdominal Verified 11/11/19 21:37 & muscle cramps indomethacin [From Indocin] AdvReac Abdominal Verified 11/11/19 21:37 Pain,N/V ketorolac tromethamine AdvReac "built up Verified 11/11/19 21:37 [From Toradol] in system", had to be given something to reverse lorazepam [From Ativan] AdvReac Nausea & Verified 11/11/19 21:37 Vomiting metoclopramide HCl AdvReac muscle Verified 11/11/19 21:37 [From Reglan] cramps nortriptyline [From Pamelor] AdvReac Chest Pain Verified 11/11/19 21:37 prasterone (DHEA) [From DHEA] AdvReac Chest Pain Verified 11/11/19 21:37 prochlorperazine AdvReac leg Verified 11/11/19 21:37 [From Compazine] cramping propranolol AdvReac Chest Pain Verified 11/11/19 21:37 pseudoephedrine HCl AdvReac face "beet Verified 11/11/19 21:37 [From NyQuil] red", elevated temp. quetiapine [From Seroquel] AdvReac leg Verified 11/11/19 21:37 cramping sumatriptan [From Imitrex] AdvReac migrane Verified 11/11/19 21:37 sumatriptan succinate AdvReac migrane Verified 11/11/19 21:37 [From Imitrex] topiramate [From Topamax] AdvReac "built up Verified 11/11/19 21:37 in system", had to be given something to reverse trazodone AdvReac "built up Verified 11/11/19 21:37 in system", had to be given something to reverse zolpidem tartrate AdvReac "Became Verified 11/11/19 21:37 [From Ambien] violent with no memory" zonisamide [From Zonegran] AdvReac inability Verified 11/11/19 21:37 to eat artificial sweetener AdvReac SEVERE Uncoded 11/11/19 20:42 MIGRAINE HEADACHE Review of Systems ROS Statement: Those systems with pertinent positive or pertinent negative responses have been documented in the HPI. ROS Other: All systems not noted in ROS Statement are negative. Past Medical History Past Medical History: Hyperlipidemia, Hypertension, Seizure Disorder Additional Past Medical History / Comment(s): Migraines, viral meningitis x3 as a child, 1995, 2000, chronic back pain, nerve blocks 08/2016 and 12/2016. Last seizure 05/26/19, "ABSENT SEIZURES. HX TACHYCARDIA, GB/CIPD, PTSD History of Any Multi-Drug Resistant Organisms: None Reported Past Surgical History: Appendectomy, Section, Cholecystectomy, Hernia Repair, Hysterectomy, Orthopedic Surgery, Tonsillectomy, Tubal Ligation Additional Past Surgical History / Comment(s): Hiatal Hernia, umbilical hernia repair, left rotator cuff repair, bilateral knee scopes, pain clinic procedures-occipital nerve block. abd exploratory sx(endometreosis), 3 abd scopes 1981, 1989, 1991), lumbar puncture. EGD. nerve biopsy, Past Anesthesia/Blood Transfusion Reactions: No Reported Reaction Additional Past Anesthesia/Blood Transfusion Reaction / Comment(s): Claustrophobic Past Psychological History: Anxiety, Bipolar, Panic Disorder, PTSD Smoking Status: Current every day smoker Past Alcohol Use History: None Reported Past Drug Use History: None Reported - Past Family History Mother Family Medical History: Cancer, Dementia, Diabetes Mellitus, GERD/Reflux, Hyperlipidemia, Hypertension, Thyroid Disorder Additional Family Medical History / Comment(s): Quad CABG, cardiac stents, toes ampuated. Father History Unknown: Yes Family Medical History: No Reported History General Exam - General Exam Comments Initial Comments: GENERAL: Patient is well-developed and well-nourished. Patient is nontoxic. Patient has sunglasses on it, sw[place] of her jacket over her head and eyes as well. HEAD: Atraumatic, normocephalic. EYES: Pupils equal round and reactive to light, extraocular movements intact, sclera anicteric, conjunctiva are normal. Eyelids were unremarkable. Light sensitivity ENT: TMs normal, nares patent, oropharynx clear without exudates. Moist mucous membranes. NECK: Normal range of motion, supple without lymphadenopathy or JVD. LUNGS: Unlabored respirations. Breath sounds clear to auscultation bilaterally and equal. No wheezes rales or rhonchi. HEART: Regular rate and rhythm without murmurs, rubs or gallops. ABDOMEN: Soft, nontender, normoactive bowel sounds. No guarding, no rebound. No masses appreciated. : Deferred MUSCULOSKELETAL: Normal extremities with adequate strength and normal range of motion, no pitting or edema. No clubbing or cyanosis. NEUROLOGICAL: Patient is alert and oriented x 3. Motor and sensory are also intact. Cranial nerves II through XII grossly intact. Symmetrical smile. Normal speech, normal gait. PSYCH: Normal mood, normal affect. SKIN: Warm, Dry, normal turgor, no rashes or lesions noted. Limitations: no limitations Course Vital Signs 11/11/19 11/11/19 20:41 22:17 Temperature 97.9 F 97.8 F Pulse Rate 122 H 100 Respiratory 20 18 Rate Blood Pressure 139/98 124/78 O2 Sat by Pulse 99 99 Oximetry Medical Decision Making - Medical Decision Making Patient is a 49-year-old female here for her headache that has been increasing for the past 2 days. She has a history of migraines. She was seen in the ER 4 days ago for same complaint. CT of the head was performed that day which showed no acute abnormalities. Patient's exam is unremarkable today, no neuro deficits. She is sensitive to light. Patient was given fluids, pain control, Zofran and Benadryl. She does report improvement in her symptoms. Patient states she is controlled the discharge. I will send her home with a starter pack of Zofran for additional nausea. Patient is in agreement with this plan of care. Return parameters were discussed with the patient she verbalized understanding. Disposition Clinical Impression: Migraine, Nausea & vomiting Disposition: HOME SELF-CARE Condition: Stable Instructions (If sedation given, give patient instructions): Acute Headache (ED) Additional Instructions: Please return to the Emergency Department if symptoms worsen or any other concerns. Follow-up with neurologist as discussed. May use Zofran for additional nausea. Is patient prescribed a controlled substance at d/c from ED?: No Referrals: José Reece MD [Primary Care Provider] - 1-2 days
[2019-11-11] MEDS ORDERED: ONDANSETRON 4 MG ODT STARTER PACK 2 TAB BTL PO STA (23:01)
== END 2019-11-11 23:28 | disposition home or self-care (01) ==
LOC: EC 20:39
DX: G43.909 Migraine, unspecified, not intractable, without status migrainosus (principal); E78.5 Hyperlipidemia, unspecified; I10 Essential (primary) hypertension; F41.9 Anxiety disorder, unspecified; F31.9 Bipolar disorder, unspecified; F43.10 Post-traumatic stress disorder, unspecified; F41.0 Panic disorder [episodic paroxysmal anxiety]; G40.909 Epilepsy, unspecified, not intractable, without status epilepticus; Z79.899 Other long term (current) drug therapy; F17.200 Nicotine dependence, unspecified, uncomplicated; Z88.0 Allergy status to penicillin; Z88.1 Allergy status to other antibiotic agents; Z88.6 Allergy status to analgesic agent; Z88.8 Allergy status to other drugs, medicaments and biological substances; Z91.018 Allergy to other foods; Z91.040 Latex allergy status
CPT/HCPCS: 99283; 96374; 96375 ×3; 96376; 96361; J2270; J1200; J2405; J1642; S0119

== ENCOUNTER 2019-11-14 21:42 | Emergency (ER) | payer OTHER ==
[2019-11-14 21:47] VITALS: RESP 18
[2019-11-14] MEDS ORDERED: ONDANSETRON 4 MG/2 ML VIAL IVP STA (22:19)
[2019-11-14] MEDS ORDERED: HYDROmorphone 1 MG/ML 1 ML SYRINGE IVP STA (22:19)
[2019-11-14] MEDS ORDERED: diphenhydrAMINE 50 MG/ML 1 ML VIAL IVP STA (22:19)
--- NOTE | 2019-11-14 22:57 | ED ---
General Adult HPI - General Chief complaint: Headache Stated complaint: Migraine Time Seen by Provider: 11/14/19 22:06 Source: patient, RN notes reviewed, old records reviewed Mode of arrival: ambulatory Limitations: no limitations - History of Present Illness Initial comments: 49-year-old female patient of present to ED for evaluation of migraine headache. Patient reports this has been ongoing for approximately 2 PM it started. Reports that in a posterior aspect of her head and reports is identical to her headaches in the past. Denies any red flag symptoms. Denies any other complaints. Systemic: Pt denies fatigue, fever/chills, rash. Pt denies weakness, night sweats, weight loss. Neuro: Pt denies visual disturbances, syncope or pre-syncope. HEENT: Pt denies ocular discharge or irritation, otalgia, rhinorrhea, pharyngitis or notable lymphadenopathy. Cardiopulmonary: Pt denies chest pain, SOB, heart palpitations, dyspnea on exertion. Abdominal/GI: Pt denies abdominal pain, n/v/d. : Pt denies dysuria, burning w/ urination, frequency/urgency. Denies new onset urinary or bowel incontinence. MSK: Pt denies myalgia, loss of strength or function in extremities. Neuro: Pt denies new onset weakness, paresthesias. - Related Data Home Medications Medication Instructions Recorded Confirmed Atorvastatin [Lipitor] 40 mg PO HS 04/02/17 11/11/19 Lacosamide [Vimpat] 100 mg PO BID 06/04/17 11/11/19 HYDROcodone/APAP 7.5-325MG [[place] 1 tab PO TID PRN 07/06/17 11/11/19 7.5-325] amLODIPine [Norvasc] 5 mg PO HS 10/26/18 11/11/19 Ergocalciferol [Vitamin D2 50,000 unit PO WE 01/09/19 11/11/19 (DRISDOL)] Divalproex ER [Depakote ER] 500 mg PO HS 06/01/19 11/11/19 ARIPiprazole [Abilify] 5 mg PO DAILY 11/07/19 11/11/19 Albuterol Sulfate [Ventolin HFA] 1 - 2 puff INHALATION RT-Q6H PRN 11/07/19 11/11/19 LORazepam [Ativan] 0.5 mg PO BID PRN 11/11/19 11/11/19 Allergies Allergy/AdvReac Type Severity Reaction Status Date / Time dihydroergotamine Allergy Unknown Unknown Verified 11/14/19 21:47 [From Migranal] gabapentin [From Neurontin] Allergy Itching/Swe Verified 11/14/19 21:47 lling latex Allergy Anaphylaxis Verified 11/14/19 21:47 naproxen [From Naprosyn] Allergy Anaphylaxis Verified 11/14/19 21:47 Penicillins Allergy Anaphylaxis Verified 11/14/19 21:47 prednisone Allergy Swelling Verified 11/14/19 21:47 quetiapine fumarate Allergy Itching, Verified 11/14/19 21:47 [From Seroquel] leg cramps rofecoxib [From Vioxx] Allergy Itching, Verified 11/14/19 21:47 leg cramps terfenadine [From Seldane] Allergy Rash/Hives Verified 11/14/19 21:47 tramadol Allergy Nausea & Verified 11/14/19 21:47 Vomiting/LEG CRAMPS/HEART FLUTTERS calcium carbonate [From DHEA] AdvReac Chest Pain Verified 11/14/19 21:47 calcium phosphate,dibasic AdvReac Chest Pain Verified 11/14/19 21:47 [From DHEA] clindamycin AdvReac muscle Verified 11/14/19 21:47 cramps clonidine AdvReac fast Verified 11/14/19 21:47 heartbeat, migraine dextromethorphan HBr AdvReac face/neck Verified 11/14/19 21:47 [From NyQuil] flushing diazepam [From Valium] AdvReac Nausea & Verified 11/14/19 21:47 Vomiting divalproex sodium AdvReac Nausea & Verified 11/14/19 21:47 [From Depakote] Vomiting doxylamine [From NyQuil] AdvReac face "beet Verified 11/14/19 21:47 red", elevated temp. ibuprofen [From Motrin] AdvReac abdominal Verified 11/14/19 21:47 & muscle cramps indomethacin [From Indocin] AdvReac Abdominal Verified 11/14/19 21:47 Pain,N/V ketorolac tromethamine AdvReac "built up Verified 11/14/19 21:47 [From Toradol] in system", had to be given something to reverse lorazepam [From Ativan] AdvReac Nausea & Verified 11/14/19 21:47 Vomiting metoclopramide HCl AdvReac muscle Verified 11/14/19 21:47 [From Reglan] cramps nortriptyline [From Pamelor] AdvReac Chest Pain Verified 11/14/19 21:47 prasterone (DHEA) [From DHEA] AdvReac Chest Pain Verified 11/14/19 21:47 prochlorperazine AdvReac leg Verified 11/14/19 21:47 [From Compazine] cramping propranolol AdvReac Chest Pain Verified 11/14/19 21:47 pseudoephedrine HCl AdvReac face "beet Verified 11/14/19 21:47 [From NyQuil] red", elevated temp. quetiapine [From Seroquel] AdvReac leg Verified 11/14/19 21:47 cramping sumatriptan [From Imitrex] AdvReac migrane Verified 11/14/19 21:47 sumatriptan succinate AdvReac migrane Verified 11/14/19 21:47 [From Imitrex] topiramate [From Topamax] AdvReac "built up Verified 11/14/19 21:47 in system", had to be given something to reverse trazodone AdvReac "built up Verified 11/14/19 21:47 in system", had to be given something to reverse zolpidem tartrate AdvReac "Became Verified 11/14/19 21:47 [From Ambien] violent with no memory" zonisamide [From Zonegran] AdvReac inability Verified 11/14/19 21:47 to eat artificial sweetener AdvReac SEVERE Uncoded 11/14/19 21:47 MIGRAINE HEADACHE Review of Systems ROS Statement: Those systems with pertinent positive or pertinent negative responses have been documented in the HPI. ROS Other: All systems not noted in ROS Statement are negative. Past Medical History Past Medical History: Hyperlipidemia, Hypertension, Seizure Disorder Additional Past Medical History / Comment(s): Migraines, viral meningitis x3 as a child, 1995, 2000, chronic back pain, nerve blocks 08/2016 and 12/2016. Last seizure 05/26/19, "ABSENT SEIZURES. HX TACHYCARDIA, GB/CIPD, PTSD History of Any Multi-Drug Resistant Organisms: None Reported Past Surgical History: Appendectomy, Section, Cholecystectomy, Hernia Repair, Hysterectomy, Orthopedic Surgery, Tonsillectomy, Tubal Ligation Additional Past Surgical History / Comment(s): Hiatal Hernia, umbilical hernia repair, left rotator cuff repair, bilateral knee scopes, pain clinic procedures- occipital nerve block. abd exploratory sx(endometreosis), 3 abd scopes 1981, 1989, 1991), lumbar puncture. EGD. nerve biopsy, Past Anesthesia/Blood Transfusion Reactions: No Reported Reaction Additional Past Anesthesia/Blood Transfusion Reaction / Comment(s): Claustrophobic Past Psychological History: Anxiety, Bipolar, Panic Disorder, PTSD Smoking Status: Current every day smoker Past Alcohol Use History: None Reported Past Drug Use History: None Reported - Past Family History Mother Family Medical History: Cancer, Dementia, Diabetes Mellitus, GERD/Reflux, Hyperlipidemia, Hypertension, Thyroid Disorder Additional Family Medical History / Comment(s): Quad CABG, cardiac stents, toes ampuated. Father History Unknown: Yes Family Medical History: No Reported History General Exam - General Exam Comments Initial Comments: Constitutional: NAD, AOX3, Pt has pleasant affect. HEENT: NC/AT, trachea midline, neck supple, no lymphadenopathy. External ears appear normal, without discharge. Mucous membranes moist. Eyes PERRLA, EOM intact. There is no scleral icterus. No pallor noted. Cardiopulmonary: RRR, no murmurs, rubs or gallops, no JVD noted. Lungs CTAB in anterior and posterior martin. No peripheral edema. Abdominal exam: Abdomen soft and non-distended. Abdomen non-tender to palpation in all 4 quadrants. Bowel sounds active in LLQ. No hepatosplenomegaly. No ecchymosis Neuro: CN II-XII intact. No nuchal rigidity. No raccon eyes, no miller sign, no hemotympanum. No cervical spinal tenderness. MSK: Full active ROM in upper and lower extremities, 5/5 stregnth. Limitations: no limitations Course Vital Signs 11/14/19 11/14/19 21:44 23:02 Temperature 98.0 F 98 F Pulse Rate 108 H 98 Respiratory 18 18 Rate Blood Pressure 134/99 128/97 O2 Sat by Pulse 96 100 Oximetry Medical Decision Making - Medical Decision Making 49-year-old female patient with the chief complaint migraine headache is identical to headaches in the past. Patient vital signs stable, afebrile. Exam demonstrates acute pathology. Patient declining events imaging. Patient headache significantly improved she is requesting discharge. Prior to primary return to ER if condition worsens. Case discussed with Dr. Wooten. Disposition Clinical Impression: Migraine headache Disposition: HOME SELF-CARE Condition: Stable Additional Instructions: follow-up with primary care provider tomorrow. Return to ER with any worsening symptoms. Is patient prescribed a controlled substance at d/c from ED?: No Referrals: José Reece MD [Primary Care Provider] - 1-2 days
[2019-11-14 23:03] VITALS: BP 128/97; PULSE 98; TEMP 98
== END 2019-11-14 23:04 | disposition home or self-care (01) ==
LOC: EC 21:42
DX: G43.909 Migraine, unspecified, not intractable, without status migrainosus (principal); E78.5 Hyperlipidemia, unspecified; G40.909 Epilepsy, unspecified, not intractable, without status epilepticus; G89.29 Other chronic pain; M54.9 Dorsalgia, unspecified; I10 Essential (primary) hypertension; F31.9 Bipolar disorder, unspecified; F43.10 Post-traumatic stress disorder, unspecified; F41.9 Anxiety disorder, unspecified; F17.200 Nicotine dependence, unspecified, uncomplicated; Z79.899 Other long term (current) drug therapy; Z88.6 Allergy status to analgesic agent; Z88.8 Allergy status to other drugs, medicaments and biological substances; Z91.040 Latex allergy status; Z88.0 Allergy status to penicillin; Z88.5 Allergy status to narcotic agent; Z88.1 Allergy status to other antibiotic agents; Z88.2 Allergy status to sulfonamides; Z91.02 Food additives allergy status
CPT/HCPCS: 99283; 96374; 96375 ×2; J1200; J2405; J1170

== ENCOUNTER 2019-12-06 15:42 | Emergency (ER) | payer OTHER ==
[2019-12-06 15:52] VITALS: BP 141/97; PULSE 93; RESP 16; TEMP 98.2
--- NOTE | 2019-12-06 16:31 | ED ---
Headache HPI - General Chief Complaint: Headache Stated Complaint: migraine Time Seen by Provider: 12/06/19 16:20 Mode of arrival: ambulatory Limitations: no limitations - History of Present Illness Initial Comments: Patient a 49-year-old female history of migraines resenting to the emergency department with chief complaint migraine. Patient reports she developed a gradual onset of a one-sided headache about 3 days ago with gradual increase in severity. States this is not the worst headache of her life. States this feels exactly like her other migraine headaches. Does report nausea with multiple episodes of nonbilious, nonbloody vomiting. Patient states she's not been able to tolerate any orals. Denies any night sweats fevers or chills, visual disturbances, one-sided weakness or paresthesias. Denies chest pain shortness of breath. Does report photophobia and nausea. - Related Data Home Medications Medication Instructions Recorded Confirmed Atorvastatin [Lipitor] 40 mg PO HS 04/02/17 11/11/19 Lacosamide [Vimpat] 100 mg PO BID 06/04/17 11/11/19 HYDROcodone/APAP 7.5-325MG [[place] 1 tab PO TID PRN 07/06/17 11/11/19 7.5-325] amLODIPine [Norvasc] 5 mg PO HS 10/26/18 11/11/19 Ergocalciferol [Vitamin D2 50,000 unit PO WE 01/09/19 11/11/19 (DRISDOL)] Divalproex ER [Depakote ER] 500 mg PO HS 06/01/19 11/11/19 ARIPiprazole [Abilify] 5 mg PO DAILY 11/07/19 11/11/19 Albuterol Sulfate [Ventolin HFA] 1 - 2 puff INHALATION RT-Q6H PRN 11/07/19 11/11/19 LORazepam [Ativan] 0.5 mg PO BID PRN 11/11/19 11/11/19 Allergies Allergy/AdvReac Type Severity Reaction Status Date / Time dihydroergotamine Allergy Unknown Unknown Verified 11/14/19 21:47 [From Migranal] gabapentin [From Neurontin] Allergy Itching/Swe Verified 11/14/19 21:47 lling latex Allergy Anaphylaxis Verified 12/06/19 15:50 naproxen [From Naprosyn] Allergy Anaphylaxis Verified 12/06/19 15:50 Penicillins Allergy Anaphylaxis Verified 12/06/19 15:50 prednisone Allergy Swelling Verified 12/06/19 15:50 quetiapine fumarate Allergy Itching, Verified 12/06/19 15:50 [From Seroquel] leg cramps rofecoxib [From Vioxx] Allergy Itching, Verified 12/06/19 15:50 leg cramps terfenadine [From Seldane] Allergy Rash/Hives Verified 12/06/19 15:50 tramadol Allergy Nausea & Verified 12/06/19 15:50 Vomiting/LEG CRAMPS/HEART FLUTTERS calcium carbonate [From DHEA] AdvReac Chest Pain Verified 12/06/19 15:50 calcium phosphate,dibasic AdvReac Chest Pain Verified 12/06/19 15:50 [From DHEA] clindamycin AdvReac muscle Verified 12/06/19 15:50 cramps clonidine AdvReac fast Verified 12/06/19 15:50 heartbeat, migraine dextromethorphan HBr AdvReac face/neck Verified 12/06/19 15:50 [From NyQuil] flushing diazepam [From Valium] AdvReac Nausea & Verified 12/06/19 15:50 Vomiting divalproex sodium AdvReac Nausea & Verified 12/06/19 15:50 [From Depakote] Vomiting doxylamine [From NyQuil] AdvReac face "beet Verified 12/06/19 15:50 red", elevated temp. ibuprofen [From Motrin] AdvReac abdominal Verified 12/06/19 15:50 & muscle cramps indomethacin [From Indocin] AdvReac Abdominal Verified 12/06/19 15:50 Pain,N/V ketorolac tromethamine AdvReac "built up Verified 12/06/19 15:50 [From Toradol] in system", had to be given something to reverse lorazepam [From Ativan] AdvReac Nausea & Verified 12/06/19 15:50 Vomiting metoclopramide HCl AdvReac muscle Verified 12/06/19 15:50 [From Reglan] cramps nortriptyline [From Pamelor] AdvReac Chest Pain Verified 12/06/19 15:50 prasterone (DHEA) [From DHEA] AdvReac Chest Pain Verified 12/06/19 15:50 prochlorperazine AdvReac leg Verified 12/06/19 15:50 [From Compazine] cramping propranolol AdvReac Chest Pain Verified 12/06/19 15:50 pseudoephedrine HCl AdvReac face "beet Verified 12/06/19 15:50 [From NyQuil] red", elevated temp. quetiapine [From Seroquel] AdvReac leg Verified 12/06/19 15:50 cramping sumatriptan [From Imitrex] AdvReac migrane Verified 12/06/19 15:50 sumatriptan succinate AdvReac migrane Verified 12/06/19 15:50 [From Imitrex] topiramate [From Topamax] AdvReac "built up Verified 12/06/19 15:50 in system", had to be given something to reverse trazodone AdvReac "built up Verified 12/06/19 15:50 in system", had to be given something to reverse zolpidem tartrate AdvReac "Became Verified 12/06/19 15:50 [From Ambien] violent with no memory" zonisamide [From Zonegran] AdvReac inability Verified 12/06/19 15:50 to eat artificial sweetener AdvReac SEVERE Uncoded 12/06/19 15:50 MIGRAINE HEADACHE Review of Systems ROS Statement: Those systems with pertinent positive or pertinent negative responses have been documented in the HPI. ROS Other: All systems not noted in ROS Statement are negative. Past Medical History Past Medical History: Hyperlipidemia, Hypertension, Seizure Disorder Additional Past Medical History / Comment(s): Migraines, viral meningitis x3 as a child, 1995, 2000, chronic back pain, nerve blocks 08/2016 and 12/2016. Last seizure 05/26/19, "ABSENT SEIZURES. HX TACHYCARDIA, GB/CIPD, PTSD History of Any Multi-Drug Resistant Organisms: None Reported Past Surgical History: Appendectomy, Section, Cholecystectomy, Hernia Repair, Hysterectomy, Orthopedic Surgery, Tonsillectomy, Tubal Ligation Additional Past Surgical History / Comment(s): Hiatal Hernia, umbilical hernia repair, left rotator cuff repair, bilateral knee scopes, pain clinic procedures- occipital nerve block. abd exploratory sx(endometreosis), 3 abd scopes 1981, 1989, 1991), lumbar puncture. EGD. nerve biopsy, Past Anesthesia/Blood Transfusion Reactions: No Reported Reaction Additional Past Anesthesia/Blood Transfusion Reaction / Comment(s): Claustrophobic Past Psychological History: Anxiety, Bipolar, Panic Disorder, PTSD Smoking Status: Current every day smoker Past Alcohol Use History: None Reported Past Drug Use History: None Reported - Past Family History Mother Family Medical History: Cancer, Dementia, Diabetes Mellitus, GERD/Reflux, Hyp erlipidemia, Hypertension, Thyroid Disorder Additional Family Medical History / Comment(s): Quad CABG, cardiac stents, toes ampuated. Father History Unknown: Yes Family Medical History: No Reported History General Exam Limitations: no limitations General appearance: alert, in no apparent distress Head exam: Present: atraumatic, normocephalic, normal inspection Eye exam: Present: normal appearance, PERRL, EOMI Pupils: Present: normal accommodation ENT exam: Present: normal exam, normal oropharynx, mucous membranes moist Neck exam: Present: normal inspection, full ROM. Absent: tenderness Respiratory exam: Present: normal lung sounds bilaterally. Absent: respiratory distress, wheezes Cardiovascular Exam: Present: regular rate, normal rhythm, normal heart sounds Extremities exam: Present: normal inspection, full ROM. Absent: tenderness Back exam: Present: normal inspection, full ROM. Absent: tenderness Neurological exam: Present: alert, oriented X3, CN II-XII intact, normal gait Psychiatric exam: Present: normal affect, normal mood Skin exam: Present: warm, dry, intact, normal color Course Vital Signs 12/06/19 15:50 Temperature 98.2 F Pulse Rate 93 Respiratory 16 Rate Blood Pressure 141/97 O2 Sat by Pulse 96 Oximetry Medical Decision Making - Medical Decision Making Patient is a 49-year-old female who history recurrent migraines presenting to emergency Department with a chief complaint of migraine. Patient is well-known to the emergency department for frequent visits due to her migraines. Neurological examination is unremarkable. Nausea vomiting photophobia. One- sided headache. Gradual onset and not the worst headache of her life. Patient was given IV fluids, analgesia, antiemetics and Benadryl. On reevaluation, patient reports improvement in symptoms. Return parameters were thoroughly discussed with patient was understanding and agreeable. Case discussed with physician. Disposition Clinical Impression: Migraine headache without aura Disposition: HOME SELF-CARE Condition: Stable Instructions (If sedation given, give patient instructions): Acute Headache (ED) Additional Instructions: Follow with her primary care physician. Return to emergency department if symptoms worsen. Is patient prescribed a controlled substance at d/c from ED?: No Referrals: José Reece MD [Primary Care Provider] - 1-2 days Time of Disposition: 17:22
[2019-12-06] MEDS ORDERED: ONDANSETRON 4 MG/2 ML VIAL IVP STA (16:33)
[2019-12-06] MEDS ORDERED: HYDROmorphone 1 MG/ML 1 ML SYRINGE IVP STA (16:33)
[2019-12-06] MEDS ORDERED: SODIUM CHLORIDE 0.9% 1,000 ML IV STA (16:33)
[2019-12-06] MEDS ORDERED: diphenhydrAMINE 50 MG/ML 1 ML VIAL IVP STA (16:33)
[2019-12-06] MEDS ORDERED: HYDROmorphone 0.5 MG/0.5 ML SYRINGE IVP STA (17:22)
== END 2019-12-06 17:41 | disposition home or self-care (01) ==
LOC: EC 15:42
DX: G43.009 Migraine without aura, not intractable, without status migrainosus (principal); I10 Essential (primary) hypertension; G40.909 Epilepsy, unspecified, not intractable, without status epilepticus; E78.5 Hyperlipidemia, unspecified; F31.9 Bipolar disorder, unspecified; F43.10 Post-traumatic stress disorder, unspecified; F41.9 Anxiety disorder, unspecified; F41.0 Panic disorder [episodic paroxysmal anxiety]; F17.200 Nicotine dependence, unspecified, uncomplicated; Z79.899 Other long term (current) drug therapy; Z88.8 Allergy status to other drugs, medicaments and biological substances; Z91.040 Latex allergy status; Z88.0 Allergy status to penicillin; Z88.6 Allergy status to analgesic agent; Z88.5 Allergy status to narcotic agent; Z88.1 Allergy status to other antibiotic agents; Z88.2 Allergy status to sulfonamides; Z91.02 Food additives allergy status
CPT/HCPCS: 99283; 96374; 96375 ×2; 96361; J1200; J2405; J1170

== ENCOUNTER 2019-12-14 13:01 | Emergency (ER) | payer OTHER ==
[2019-12-14 13:13] VITALS: RESP 18
[2019-12-14] MEDS ORDERED: HYDROmorphone 1 MG/ML 1 ML SYRINGE IVP STA ×2 (13:38→14:35)
[2019-12-14] MEDS ORDERED: ONDANSETRON 4 MG/2 ML VIAL IVP STA (13:39)
[2019-12-14] MEDS ORDERED: SODIUM CHLORIDE 0.9% 1,000 ML IV ONE (13:39)
[2019-12-14] MEDS ORDERED: diphenhydrAMINE 50 MG/ML 1 ML VIAL IVP STA (13:39)
--- NOTE | 2019-12-14 14:44 | ED ---
Headache HPI - General Chief Complaint: Headache Stated Complaint: headache Time Seen by Provider: 12/14/19 13:16 Mode of arrival: ambulatory Limitations: no limitations - History of Present Illness Initial Comments: 49-year-old male presenting today for chief complaint of headaches patient states this typical for her migraines and has been ongoing for 3 days. Patient states she is usually given Dilaudid Benadryl and Zofran the symptoms go away she states the scheduled appointment in a few weeks at [facility] for a migraine specialist. Patient states she was recently discharged for Jennifer Cárdenas. - Related Data Home Medications Medication Instructions Recorded Confirmed Atorvastatin [Lipitor] 40 mg PO HS 04/02/17 11/11/19 Lacosamide [Vimpat] 100 mg PO BID 06/04/17 11/11/19 HYDROcodone/APAP 7.5-325MG [[place] 1 tab PO TID PRN 07/06/17 11/11/19 7.5-325] amLODIPine [Norvasc] 5 mg PO HS 10/26/18 11/11/19 Ergocalciferol [Vitamin D2 50,000 unit PO WE 01/09/19 11/11/19 (DRISDOL)] Divalproex ER [Depakote ER] 500 mg PO HS 06/01/19 11/11/19 ARIPiprazole [Abilify] 5 mg PO DAILY 11/07/19 11/11/19 Albuterol Sulfate [Ventolin HFA] 1 - 2 puff INHALATION RT-Q6H PRN 11/07/19 11/11/19 LORazepam [Ativan] 0.5 mg PO BID PRN 11/11/19 11/11/19 Allergies Allergy/AdvReac Type Severity Reaction Status Date / Time dihydroergotamine Allergy Unknown Unknown Verified 11/14/19 21:47 [From Migranal] gabapentin [From Neurontin] Allergy Itching/Swe Verified 11/14/19 21:47 lling latex Allergy Anaphylaxis Verified 12/14/19 13:13 naproxen [From Naprosyn] Allergy Anaphylaxis Verified 12/14/19 13:13 Penicillins Allergy Anaphylaxis Verified 12/14/19 13:13 prednisone Allergy Swelling Verified 12/14/19 13:13 quetiapine fumarate Allergy Itching, Verified 12/14/19 13:13 [From Seroquel] leg cramps rofecoxib [From Vioxx] Allergy Itching, Verified 12/14/19 13:13 leg cramps terfenadine [From Seldane] Allergy Rash/Hives Verified 12/14/19 13:13 tramadol Allergy Nausea & Verified 12/14/19 13:13 Vomiting/LEG CRAMPS/HEART FLUTTERS calcium carbonate [From DHEA] AdvReac Chest Pain Verified 12/14/19 13:13 calcium phosphate,dibasic AdvReac Chest Pain Verified 12/14/19 13:13 [From DHEA] clindamycin AdvReac muscle Verified 12/14/19 13:13 cramps clonidine AdvReac fast Verified 12/14/19 13:13 heartbeat, migraine dextromethorphan HBr AdvReac face/neck Verified 12/14/19 13:13 [From NyQuil] flushing diazepam [From Valium] AdvReac Nausea & Verified 12/14/19 13:13 Vomiting divalproex sodium AdvReac Nausea & Verified 12/14/19 13:13 [From Depakote] Vomiting doxylamine [From NyQuil] AdvReac face "beet Verified 12/14/19 13:13 red", elevated temp. ibuprofen [From Motrin] AdvReac abdominal Verified 12/14/19 13:13 & muscle cramps indomethacin [From Indocin] AdvReac Abdominal Verified 12/14/19 13:13 Pain,N/V ketorolac tromethamine AdvReac "built up Verified 12/14/19 13:13 [From Toradol] in system", had to be given something to reverse lorazepam [From Ativan] AdvReac Nausea & Verified 12/14/19 13:13 Vomiting metoclopramide HCl AdvReac muscle Verified 12/14/19 13:13 [From Reglan] cramps nortriptyline [From Pamelor] AdvReac Chest Pain Verified 12/14/19 13:13 prasterone (DHEA) [From DHEA] AdvReac Chest Pain Verified 12/14/19 13:13 prochlorperazine AdvReac leg Verified 12/14/19 13:13 [From Compazine] cramping propranolol AdvReac Chest Pain Verified 12/14/19 13:13 pseudoephedrine HCl AdvReac face "beet Verified 12/14/19 13:13 [From NyQuil] red", elevated temp. quetiapine [From Seroquel] AdvReac leg Verified 12/14/19 13:13 cramping sumatriptan [From Imitrex] AdvReac migrane Verified 12/14/19 13:13 sumatriptan succinate AdvReac migrane Verified 12/14/19 13:13 [From Imitrex] topiramate [From Topamax] AdvReac "built up Verified 12/14/19 13:13 in system", had to be given something to reverse trazodone AdvReac "built up Verified 12/14/19 13:13 in system", had to be given something to reverse zolpidem tartrate AdvReac "Became Verified 12/14/19 13:13 [From Ambien] violent with no memory" zonisamide [From Zonegran] AdvReac inability Verified 12/14/19 13:13 to eat artificial sweetener AdvReac SEVERE Uncoded 12/14/19 13:13 MIGRAINE HEADACHE Review of Systems ROS Statement: Those systems with pertinent positive or pertinent negative responses have been documented in the HPI. ROS Other: All systems not noted in ROS Statement are negative. Past Medical History Past Medical History: Hyperlipidemia, Hypertension, Seizure Disorder Additional Past Medical History / Comment(s): Migraines, viral meningitis x3 as a child, 1995, 2000, chronic back pain, nerve blocks 08/2016 and 12/2016. Last seizure 05/26/19, "ABSENT SEIZURES. HX TACHYCARDIA, GB/CIPD, PTSD History of Any Multi-Drug Resistant Organisms: None Reported Past Surgical History: Appendectomy, Section, Cholecystectomy, Hernia Repair, Hysterectomy, Orthopedic Surgery, Tonsillectomy, Tubal Ligation Additional Past Surgical History / Comment(s): Hiatal Hernia, umbilical hernia repair, left rotator cuff repair, bilateral knee scopes, pain clinic procedures- occipital nerve block. abd exploratory sx(endometreosis), 3 abd scopes 1981, 1989, 1991), lumbar puncture. EGD. nerve biopsy, Past Anesthesia/Blood Transfusion Reactions: No Reported Reaction Additional Past Anesthesia/Blood Transfusion Reaction / Comment(s): Claustrophobic Past Psychological History: Anxiety, Bipolar, Panic Disorder, PTSD Smoking Status: Current every day smoker Past Alcohol Use History: None Reported Past Drug Use History: None Reported - Past Family History Mother Family Medical History: Cancer, Dementia, Diabetes Mellitus, GERD/Reflux, Hyperlipidemia, Hypertension, Thyroid Disorder Additional Family Medical History / Comment(s): Quad CABG, cardiac stents, toes ampuated. Father History Unknown: Yes Family Medical History: No Reported History General Exam - General Exam Comments Initial Comments: General: The patient is awake and alert Eye: +3 mm pupils are equal, round and reactive to light, extra-ocular movements are intact.Light sensitive. No nystagmus. There is normal conjunctiva bilaterally. No signs of icterus. Ears, nose, mouth and throat: There are moist mucous membranes and no oral lesions. Neck: The neck is supple, there is no tenderness or JVD. No nuchal rigidity. Cardiovascular: There is a regular rate and rhythm. No murmur, rub or gallop is appreciated. Respiratory: Lungs are clear to auscultation, respirations are non-labored, breath sounds are equal. No wheezes, stridor, rales, or rhonchi. Gastrointestinal: Soft, non-distended, non-tender abdomen without masses or organomegaly noted. There is no rebound or guarding present. Musculoskeletal: Normal ROM, no tenderness. Strength 4/5 of the LE b/l and 5/5/ of the UE b/l. Sensation intact of the UE and LE qual b/l. Radial pulses equal bilaterally 2+. Neurological: A&O x 3. CN II-XII intact, There are no obvious motor or sensory deficits. Coordination appears grossly intact. Speech is normal. Skin: Skin is warm and dry and no rashes or lesions are noted. Psychiatric: Cooperative, appropriate mood & affect, normal judgment. Limitations: no limitations Course Vital Signs 12/14/19 12/14/19 13:10 14:50 Temperature 98.1 F 97.8 F Pulse Rate 99 90 Respiratory 18 18 Rate Blood Pressure 137/92 145/102 O2 Sat by Pulse 97 98 Oximetry Medical Decision Making - Medical Decision Making 49 year female well-known to the emergency department presenting today for cc of headache. Denies sudden onset or this being worst AYO of life. Denies neck stiffness. No nuchal rigidity on exam. No focal deficits aside from equal b/l LE weakness--she was recently diagnosed with Guillain-Cárdenas syndrome and was discharged from any [facility] she states that she was discharged with this weakness and states that she was told it'll gradually get better. Patient denies any acute changes she states every day the weakness has been improving and she may undergo IgG therapy. Patient states she onyl wants treatment for her YAO, and usually is given dilaudid and benadryl. patient pain improved significantly on reevaluation requesting discharge. Patient dischared appearing well. Disposition Clinical Impression: Headache Disposition: HOME SELF-CARE Condition: Good Instructions (If sedation given, give patient instructions): Acute Headache (ED) Additional Instructions: Please use medication as discussed. Please follow-up with family doctor in the next 2 days.. Please return to emergency room if the symptoms increase or worsen or for any other concerns. Is patient prescribed a controlled substance at d/c from ED?: No Referrals: José Reece MD [Primary Care Provider] - 1-2 days Time of Disposition: 14:44
[2019-12-14 14:51] VITALS: BP 145/102; PULSE 90; TEMP 97.8
== END 2019-12-14 15:01 | disposition home or self-care (01) ==
LOC: EC 13:01
DX: G43.909 Migraine, unspecified, not intractable, without status migrainosus (principal); G61.0 Guillain-Barre syndrome; I10 Essential (primary) hypertension; E78.5 Hyperlipidemia, unspecified; G40.909 Epilepsy, unspecified, not intractable, without status epilepticus; F41.0 Panic disorder [episodic paroxysmal anxiety]; F31.9 Bipolar disorder, unspecified; F17.200 Nicotine dependence, unspecified, uncomplicated; Z79.899 Other long term (current) drug therapy; Z88.8 Allergy status to other drugs, medicaments and biological substances; Z91.040 Latex allergy status; Z88.6 Allergy status to analgesic agent; Z88.0 Allergy status to penicillin; Z88.5 Allergy status to narcotic agent; Z88.1 Allergy status to other antibiotic agents; Z91.02 Food additives allergy status
CPT/HCPCS: 99283; 96374; 96375 ×2; 96376; 96361; J1200; J2405; J1170

== ENCOUNTER 2019-12-22 16:29 | Emergency (ER) | payer OTHER ==
[2019-12-22] MEDS ORDERED: diphenhydrAMINE 50 MG/ML 1 ML VIAL IM STA (16:45)
[2019-12-22] MEDS ORDERED: HYDROmorphone 1 MG/ML 1 ML SYRINGE IM STA (16:45)
[2019-12-22] MEDS ORDERED: ONDANSETRON 4 MG/2 ML VIAL IM STA (16:45)
--- NOTE | 2019-12-22 16:48 | ED ---
Headache HPI - General Chief Complaint: Headache Stated Complaint: headache Time Seen by Provider: 12/22/19 16:35 Source: patient, RN notes reviewed Mode of arrival: ambulatory Limitations: no limitations - History of Present Illness Initial Comments: 49-year-old female presents emergency Department chief complaint of migraine headache. Patient has chronic back issues. This is not an atypical headache. Patient is normal headache for her. Patient states that really with medications at home with some nausea and photophobia patient states her typical symptoms no neck pain or neck stiffness fevers chills chest pain shortness breath or any other complaints. - Related Data Home Medications Medication Instructions Recorded Confirmed Atorvastatin [Lipitor] 40 mg PO HS 04/02/17 11/11/19 Lacosamide [Vimpat] 100 mg PO BID 06/04/17 11/11/19 HYDROcodone/APAP 7.5-325MG [[place] 1 tab PO TID PRN 07/06/17 11/11/19 7.5-325] amLODIPine [Norvasc] 5 mg PO HS 10/26/18 11/11/19 Ergocalciferol [Vitamin D2 50,000 unit PO WE 01/09/19 11/11/19 (DRISDOL)] Divalproex ER [Depakote ER] 500 mg PO HS 06/01/19 11/11/19 ARIPiprazole [Abilify] 5 mg PO DAILY 11/07/19 11/11/19 Albuterol Sulfate [Ventolin HFA] 1 - 2 puff INHALATION RT-Q6H PRN 11/07/19 11/11/19 LORazepam [Ativan] 0.5 mg PO BID PRN 11/11/19 11/11/19 Allergies Allergy/AdvReac Type Severity Reaction Status Date / Time dihydroergotamine Allergy Unknown Unknown Verified 12/22/19 16:32 [From Migranal] gabapentin [From Neurontin] Allergy Itching/Swe Verified 12/22/19 16:32 lling latex Allergy Anaphylaxis Verified 12/22/19 16:32 naproxen [From Naprosyn] Allergy Anaphylaxis Verified 12/22/19 16:32 Penicillins Allergy Anaphylaxis Verified 12/22/19 16:32 prednisone Allergy Swelling Verified 12/22/19 16:32 quetiapine fumarate Allergy Itching, Verified 12/22/19 16:32 [From Seroquel] leg cramps rofecoxib [From Vioxx] Allergy Itching, Verified 12/22/19 16:32 leg cramps terfenadine [From Seldane] Allergy Rash/Hives Verified 12/22/19 16:32 tramadol Allergy Nausea & Verified 12/22/19 16:32 Vomiting/LEG CRAMPS/HEART FLUTTERS calcium carbonate [From DHEA] AdvReac Chest Pain Verified 12/22/19 16:32 calcium phosphate,dibasic AdvReac Chest Pain Verified 12/22/19 16:32 [From DHEA] clindamycin AdvReac muscle Verified 12/22/19 16:32 cramps clonidine AdvReac fast Verified 12/22/19 16:32 heartbeat, migraine dextromethorphan HBr AdvReac face/neck Verified 12/22/19 16:32 [From NyQuil] flushing diazepam [From Valium] AdvReac Nausea & Verified 12/22/19 16:32 Vomiting divalproex sodium AdvReac Nausea & Verified 12/22/19 16:32 [From Depakote] Vomiting doxylamine [From NyQuil] AdvReac face "beet Verified 12/22/19 16:32 red", elevated temp. ibuprofen [From Motrin] AdvReac abdominal Verified 12/22/19 16:32 & muscle cramps indomethacin [From Indocin] AdvReac Abdominal Verified 12/22/19 16:32 Pain,N/V ketorolac tromethamine AdvReac "built up Verified 12/22/19 16:32 [From Toradol] in system", had to be given something to reverse lorazepam [From Ativan] AdvReac Nausea & Verified 12/22/19 16:32 Vomiting metoclopramide HCl AdvReac muscle Verified 12/22/19 16:32 [From Reglan] cramps nortriptyline [From Pamelor] AdvReac Chest Pain Verified 12/22/19 16:32 prasterone (DHEA) [From DHEA] AdvReac Chest Pain Verified 12/22/19 16:32 prochlorperazine AdvReac leg Verified 12/22/19 16:32 [From Compazine] cramping propranolol AdvReac Chest Pain Verified 12/22/19 16:32 pseudoephedrine HCl AdvReac face "beet Verified 12/22/19 16:32 [From NyQuil] red", elevated temp. quetiapine [From Seroquel] AdvReac leg Verified 12/22/19 16:32 cramping sumatriptan [From Imitrex] AdvReac migrane Verified 12/22/19 16:32 sumatriptan succinate AdvReac migrane Verified 12/22/19 16:32 [From Imitrex] topiramate [From Topamax] AdvReac "built up Verified 12/22/19 16:32 in system", had to be given something to reverse trazodone AdvReac "built up Verified 12/22/19 16:32 in system", had to be given something to reverse zolpidem tartrate AdvReac "Became Verified 12/22/19 16:32 [From Ambien] violent with no memory" zonisamide [From Zonegran] AdvReac inability Verified 12/22/19 16:32 to eat artificial sweetener AdvReac SEVERE Uncoded 12/22/19 16:32 MIGRAINE HEADACHE Review of Systems ROS Statement: Those systems with pertinent positive or pertinent negative responses have been documented in the HPI. ROS Other: All systems not noted in ROS Statement are negative. Past Medical History Past Medical History: Hyperlipidemia, Hypertension, Seizure Disorder Additional Past Medical History / Comment(s): Migraines, viral meningitis x3 as a child, 1995, 2000, chronic back pain, nerve blocks 08/2016 and 12/2016. Last seizure 05/26/19, "ABSENT SEIZURES. HX TACHYCARDIA, GB/CIPD, PTSD History of Any Multi-Drug Resistant Organisms: None Reported Past Surgical History: Appendectomy, Section, Cholecystectomy, Hernia Repair, Hysterectomy, Orthopedic Surgery, Tonsillectomy, Tubal Ligation Additional Past Surgical History / Comment(s): Hiatal Hernia, umbilical hernia repair, left rotator cuff repair, bilateral knee scopes, pain clinic procedures- occipital nerve block. abd exploratory sx(endometreosis), 3 abd scopes 1981, 1989, 1991), lumbar puncture. EGD. nerve biopsy, Past Anesthesia/Blood Transfusion Reactions: No Reported Reaction Additional Past Anesthesia/Blood Transfusion Reaction / Comment(s): Claustrophobic Past Psychological History: Anxiety, Bipolar, Panic Disorder, PTSD Smoking Status: Current every day smoker Past Alcohol Use History: None Reported Past Drug Use History: None Reported - Past Family History Mother Family Medical History: Cancer, Dementia, Diabetes Mellitus, GERD/Reflux, Hyperlipidemia, Hypertension, Thyroid Disorder Additional Family Medical History / Comment(s): Quad CABG, cardiac stents, toes ampuated. Father History Unknown: Yes Family Medical History: No Reported History General Exam Limitations: no limitations General appearance: alert, in no apparent distress Head exam: Present: atraumatic, normocephalic, normal inspection Eye exam: Present: normal appearance, PERRL, EOMI. Absent: scleral icterus, conjunctival injection, periorbital swelling ENT exam: Present: normal exam, normal oropharynx, mucous membranes moist, TM's normal bilaterally Neck exam: Present: normal inspection, full ROM. Absent: tenderness, meningismus, lymphadenopathy Respiratory exam: Present: normal lung sounds bilaterally. Absent: respiratory distress, wheezes, rales, rhonchi, stridor Cardiovascular Exam: Present: regular rate, normal rhythm, normal heart sounds. Absent: systolic murmur, diastolic murmur, rubs, gallop, clicks Neurological exam: Present: alert, oriented X3, CN II-XII intact, reflexes normal, other (Finger to nose intact bilaterally). Absent: motor sensory deficit Course Vital Signs 12/22/19 16:32 Temperature 98.7 F Pulse Rate 95 Respiratory 16 Rate Blood Pressure 144/102 O2 Sat by Pulse 98 Oximetry Medical Decision Making - Medical Decision Making Patient exam is unremarkable. Patient has chronic migraine headaches. Patient provided migraine cocktail and will be discharged in stable condition patient agrees to plan. Disposition Clinical Impression: Migraine Disposition: HOME SELF-CARE Condition: Stable Instructions (If sedation given, give patient instructions): Acute Headache (ED) Additional Instructions: Please return to the Emergency Department if symptoms worsen or any other concerns. Is patient prescribed a controlled substance at d/c from ED?: No Referrals: José Reece MD [Primary Care Provider] - 1-2 days Time of Disposition: 16:47
[2019-12-22 17:53] VITALS: BP 145/89; PULSE 92; RESP 18; TEMP 98.3
== END 2019-12-22 17:53 | disposition home or self-care (01) ==
LOC: EC 16:29
DX: G43.709 Chronic migraine without aura, not intractable, without status migrainosus (principal); G40.909 Epilepsy, unspecified, not intractable, without status epilepticus; I10 Essential (primary) hypertension; E78.5 Hyperlipidemia, unspecified; F41.0 Panic disorder [episodic paroxysmal anxiety]; F31.9 Bipolar disorder, unspecified; F17.200 Nicotine dependence, unspecified, uncomplicated; Z79.899 Other long term (current) drug therapy; Z88.8 Allergy status to other drugs, medicaments and biological substances; Z91.040 Latex allergy status; Z88.6 Allergy status to analgesic agent; Z88.0 Allergy status to penicillin; Z88.5 Allergy status to narcotic agent; Z88.2 Allergy status to sulfonamides; Z88.1 Allergy status to other antibiotic agents; Z91.02 Food additives allergy status
CPT/HCPCS: 99283; 96372 ×3; J1200; J2405; J1170

== ENCOUNTER 2019-12-24 17:08 | Emergency (ER) | payer OTHER ==
[2019-12-24] MEDS ORDERED: SODIUM CHLORIDE 0.9% 1,000 ML IV STA (18:57)
[2019-12-24] MEDS ORDERED: diphenhydrAMINE 50 MG/ML 1 ML VIAL IVP STA (18:57)
[2019-12-24] MEDS ORDERED: ONDANSETRON 4 MG/2 ML VIAL IVP STA (18:57)
[2019-12-24] MEDS ORDERED: HYDROmorphone 1 MG/ML 1 ML SYRINGE IVP STA ×2 (18:58→20:45)
--- NOTE | 2019-12-24 19:01 | ED ---
General Adult HPI - General Chief complaint: Headache Stated complaint: migraine Time Seen by Provider: 12/24/19 18:44 Source: patient Mode of arrival: ambulatory Limitations: no limitations - History of Present Illness Initial comments: Dictation was produced using [employer] dictation software. please excuse any grammatical, word or spelling errors. This patient was cared for during a federal and state declared state of emergency secondary to Covid 19 Chief Complaint: 49-year-old female past medical history of chronic migraines presents with headache. History of Present Illness: 49-year-old female she presents today with a migraine. Patient is a headache patient. She does have history of chronic migraines. Patient states she was at the [facility] where she is being evaluated by headache specialist for near future occipital nerve block. She reports that pressing her neck vigorously. Since then patient has been having a whole cranial headache. She states that these are typical for her usual headaches. Patient is on to emergency department for multiple visitations for headache symptoms control. She denies any numbness and paresthesias. She states her symptoms are very typical for her usual symptoms. She does complain of photophobia. She does not report that this headache is worsening of her life. The ROS documented in this emergency department record has been reviewed and confirmed by me. Those systems with pertinent positive or negative responses have been documented in the HPI. All other systems are other negative and/or noncontributory. PHYSICAL EXAM: General Impression: Alert and oriented x3, acute distress secondary to pain HEENT: Normocephalic atraumatic, extra-ocular movements intact, pupils equal and reactive to light bilaterally, mucous membranes moist. Cardiovascular: Heart regular rate and rhythm Chest: Able to complete full sentences, no retractions, no tachypnea Abdomen: abdomen soft, non-tender, non-distended, no organomegaly Musculoskeletal: Pulses present and equal in all extremities, no peripheral edema Motor: no focal deficits noted Neurological: CN II-XII grossly intact, no focal motor or sensory deficits noted Skin: Intact with no visualized rashes Psych: Normal affect and mood ED course: 49-year-old female presents today with acute on chronic headache. Vital signs upon arrival are within acceptable limits. Patient given headache cocktail. She does not have any high-risk features of her symptoms today. Patient reevaluated after headache cocktail with improvement of symptoms. Patient is agreeable to go home. She wants to go home and get some sleep. Patient told to follow-up with a primary care physician. Return parameters discussed. Patient appears to be at baseline currently. - Related Data Home Medications Medication Instructions Recorded Confirmed Atorvastatin [Lipitor] 40 mg PO HS 04/02/17 11/11/19 Lacosamide [Vimpat] 100 mg PO BID 06/04/17 11/11/19 HYDROcodone/APAP 7.5-325MG [Russell 1 tab PO TID PRN 07/06/17 11/11/19 7.5-325] amLODIPine [Norvasc] 5 mg PO HS 10/26/18 11/11/19 Ergocalciferol [Vitamin D2 50,000 unit PO WE 01/09/19 11/11/19 (DRISDOL)] Divalproex ER [Depakote ER] 500 mg PO HS 06/01/19 11/11/19 ARIPiprazole [Abilify] 5 mg PO DAILY 11/07/19 11/11/19 Albuterol Sulfate [Ventolin HFA] 1 - 2 puff INHALATION RT-Q6H PRN 11/07/19 11/11/19 LORazepam [Ativan] 0.5 mg PO BID PRN 11/11/19 11/11/19 Allergies Allergy/AdvReac Type Severity Reaction Status Date / Time dihydroergotamine Allergy Unknown Unknown Verified 12/22/19 16:32 [From Migranal] gabapentin [From Neurontin] Allergy Itching/Swe Verified 12/22/19 16:32 lling latex Allergy Anaphylaxis Verified 12/24/19 17:11 naproxen [From Naprosyn] Allergy Anaphylaxis Verified 12/24/19 17:11 Penicillins Allergy Anaphylaxis Verified 12/24/19 17:11 prednisone Allergy Swelling Verified 12/24/19 17:11 quetiapine fumarate Allergy Itching, Verified 12/24/19 17:11 [From Seroquel] leg cramps rofecoxib [From Vioxx] Allergy Itching, Verified 12/24/19 17:11 leg cramps terfenadine [From Seldane] Allergy Rash/Hives Verified 12/24/19 17:11 tramadol Allergy Nausea & Verified 12/24/19 17:11 Vomiting/LEG CRAMPS/HEART FLUTTERS calcium carbonate [From DHEA] AdvReac Chest Pain Verified 12/24/19 17:11 calcium phosphate,dibasic AdvReac Chest Pain Verified 12/24/19 17:11 [From DHEA] clindamycin AdvReac muscle Verified 12/24/19 17:11 cramps clonidine AdvReac fast Verified 12/24/19 17:11 heartbeat, migraine dextromethorphan HBr AdvReac face/neck Verified 12/24/19 17:11 [From NyQuil] flushing diazepam [From Valium] AdvReac Nausea & Verified 12/24/19 17:11 Vomiting divalproex sodium AdvReac Nausea & Verified 12/24/19 17:11 [From Depakote] Vomiting doxylamine [From NyQuil] AdvReac face "beet Verified 12/24/19 17:11 red", elevated temp. ibuprofen [From Motrin] AdvReac abdominal Verified 12/24/19 17:11 & muscle cramps indomethacin [From Indocin] AdvReac Abdominal Verified 12/24/19 17:11 Pain,N/V ketorolac tromethamine AdvReac "built up Verified 12/24/19 17:11 [From Toradol] in system", had to be given something to reverse lorazepam [From Ativan] AdvReac Nausea & Verified 12/24/19 17:11 Vomiting metoclopramide HCl AdvReac muscle Verified 12/24/19 17:11 [From Reglan] cramps nortriptyline [From Pamelor] AdvReac Chest Pain Verified 12/24/19 17:11 prasterone (DHEA) [From DHEA] AdvReac Chest Pain Verified 12/24/19 17:11 prochlorperazine AdvReac leg Verified 12/24/19 17:11 [From Compazine] cramping propranolol AdvReac Chest Pain Verified 12/24/19 17:11 pseudoephedrine HCl AdvReac face "beet Verified 12/24/19 17:11 [From NyQuil] red", elevated temp. quetiapine [From Seroquel] AdvReac leg Verified 12/24/19 17:11 cramping sumatriptan [From Imitrex] AdvReac migrane Verified 12/24/19 17:11 sumatriptan succinate AdvReac migrane Verified 12/24/19 17:11 [From Imitrex] topiramate [From Topamax] AdvReac "built up Verified 12/24/19 17:11 in system", had to be given something to reverse trazodone AdvReac "built up Verified 12/24/19 17:11 in system", had to be given something to reverse zolpidem tartrate AdvReac "Became Verified 12/24/19 17:11 [From Ambien] violent with no memory" zonisamide [From Zonegran] AdvReac inability Verified 12/24/19 17:11 to eat artificial sweetener AdvReac SEVERE Uncoded 12/24/19 17:11 MIGRAINE HEADACHE Review of Systems ROS Statement: Those systems with pertinent positive or pertinent negative responses have been documented in the HPI. ROS Other: All systems not noted in ROS Statement are negative. Past Medical History Past Medical History: Hyperlipidemia, Hypertension, Seizure Disorder Additional Past Medical History / Comment(s): Migraines, viral meningitis x3 as a child, 1995, 2000, chronic back pain, nerve blocks 08/2016 and 12/2016. Last seizure 05/26/19, "ABSENT SEIZURES. HX TACHYCARDIA, GB/CIPD, PTSD History of Any Multi-Drug Resistant Organisms: None Reported Past Surgical History: Appendectomy, Section, Cholecystectomy, Hernia Repair, Hysterectomy, Orthopedic Surgery, Tonsillectomy, Tubal Ligation Additional Past Surgical History / Comment(s): Hiatal Hernia, umbilical hernia repair, left rotator cuff repair, bilateral knee scopes, pain clinic procedures- occipital nerve block. abd exploratory sx(endometreosis), 3 abd scopes 1981, 1989, 1991), lumbar puncture. EGD. nerve biopsy, Past Anesthesia/Blood Transfusion Reactions: No Reported Reaction Additional Past Anesthesia/Blood Transfusion Reaction / Comment(s): Claustrophobic Past Psychological History: Anxiety, Bipolar, Panic Disorder, PTSD Smoking Status: Current every day smoker Past Alcohol Use History: None Reported Past Drug Use History: None Reported - Past Family History Mother Family Medical History: Cancer, Dementia, Diabetes Mellitus, GERD/Reflux, Hyperlipidemia, Hypertension, Thyroid Disorder Additional Family Medical History / Comment(s): Quad CABG, cardiac stents, toes ampuated. Father History Unknown: Yes Family Medical History: No Reported History General Exam Limitations: no limitations Course Vital Signs 12/24/19 17:11 Temperature 98.1 F Pulse Rate 98 Respiratory 16 Rate Blood Pressure 154/104 O2 Sat by Pulse 97 Oximetry Disposition Clinical Impression: Headache Disposition: HOME SELF-CARE Condition: Good Instructions (If sedation given, give patient instructions): Acute Headache (ED) Is patient prescribed a controlled substance at d/c from ED?: No Referrals: José Reece MD [Primary Care Provider] - 1-2 days Time of Disposition: 20:45
[2019-12-24 21:41] VITALS: BP 146/78; PULSE 90; RESP 18; TEMP 98
== END 2019-12-24 21:41 | disposition home or self-care (01) ==
LOC: EC 17:08
DX: G43.909 Migraine, unspecified, not intractable, without status migrainosus (principal); F41.9 Anxiety disorder, unspecified; F31.9 Bipolar disorder, unspecified; F43.10 Post-traumatic stress disorder, unspecified; F41.0 Panic disorder [episodic paroxysmal anxiety]; E78.5 Hyperlipidemia, unspecified; I10 Essential (primary) hypertension; G40.909 Epilepsy, unspecified, not intractable, without status epilepticus; Z79.899 Other long term (current) drug therapy; F17.200 Nicotine dependence, unspecified, uncomplicated; Z88.0 Allergy status to penicillin; Z88.1 Allergy status to other antibiotic agents; Z88.6 Allergy status to analgesic agent; Z88.8 Allergy status to other drugs, medicaments and biological substances; Z91.040 Latex allergy status; Z91.018 Allergy to other foods; Z90.49 Acquired absence of other specified parts of digestive tract; Z90.710 Acquired absence of both cervix and uterus; Z98.51 Tubal ligation status
CPT/HCPCS: 99283; 96374; 96375 ×2; 96376; 96361; J1200; J2405; J1170

== ENCOUNTER 2020-01-02 19:23 | Emergency (ER) | payer OTHER ==
[2020-01-02 19:27] VITALS: BP 151/85; PULSE 95; RESP 18; TEMP 97.9
--- NOTE | 2020-01-02 19:48 | ED ---
General Adult HPI - General Chief complaint: Extremity Injury, Lower Stated complaint: R Ankle Injury Time Seen by Provider: 01/02/20 19:27 Source: patient Mode of arrival: wheelchair Limitations: no limitations - History of Present Illness Initial comments: 49-year-old female presents to the emergency department today with complaints of right ankle swelling status post twisting injury this evening. Patient states that she typically relies on her wheelchair to get around but attempted to ambulate a short distance when she twisted her ankle causing her to fall. Patient was assisted back into her wheelchair, denies any further injury. States the pain level is tolerable and applied ice prior to arrival. States she is concerned about the swollen area.Patient denies any headache, neck pain, back pain, chest pain, shortness of breath, dizziness, weakness, abdominal pain, nausea, vomiting, or difficulties with bowel movements or urination. - Related Data Home Medications Medication Instructions Recorded Confirmed Atorvastatin [Lipitor] 40 mg PO HS 04/02/17 11/11/19 Lacosamide [Vimpat] 100 mg PO BID 06/04/17 11/11/19 HYDROcodone/APAP 7.5-325MG [Hannah 1 tab PO TID PRN 07/06/17 11/11/19 7.5-325] amLODIPine [Norvasc] 5 mg PO HS 10/26/18 11/11/19 Ergocalciferol [Vitamin D2 50,000 unit PO WE 01/09/19 11/11/19 (DRISDOL)] Divalproex ER [Depakote ER] 500 mg PO HS 06/01/19 11/11/19 ARIPiprazole [Abilify] 5 mg PO DAILY 11/07/19 11/11/19 Albuterol Sulfate [Ventolin HFA] 1 - 2 puff INHALATION RT-Q6H PRN 11/07/19 11/11/19 LORazepam [Ativan] 0.5 mg PO BID PRN 11/11/19 11/11/19 Allergies Allergy/AdvReac Type Severity Reaction Status Date / Time dihydroergotamine Allergy Unknown Unknown Verified 01/02/20 19:27 [From Migranal] gabapentin [From Neurontin] Allergy Itching/Swe Verified 01/02/20 19:27 lling latex Allergy Anaphylaxis Verified 01/02/20 19:27 naproxen [From Naprosyn] Allergy Anaphylaxis Verified 01/02/20 19:27 Penicillins Allergy Anaphylaxis Verified 01/02/20 19:27 prednisone Allergy Swelling Verified 01/02/20 19:27 quetiapine fumarate Allergy Itching, Verified 01/02/20 19:27 [From Seroquel] leg cramps rofecoxib [From Vioxx] Allergy Itching, Verified 01/02/20 19:27 leg cramps terfenadine [From Seldane] Allergy Rash/Hives Verified 01/02/20 19:27 tramadol Allergy Nausea & Verified 01/02/20 19:27 Vomiting/LEG CRAMPS/HEART FLUTTERS calcium carbonate [From DHEA] AdvReac Chest Pain Verified 01/02/20 19:27 calcium phosphate,dibasic AdvReac Chest Pain Verified 01/02/20 19:27 [From DHEA] clindamycin AdvReac muscle Verified 01/02/20 19:27 cramps clonidine AdvReac fast Verified 01/02/20 19:27 heartbeat, migraine dextromethorphan HBr AdvReac face/neck Verified 01/02/20 19:27 [From NyQuil] flushing diazepam [From Valium] AdvReac Nausea & Verified 01/02/20 19:27 Vomiting divalproex sodium AdvReac Nausea & Verified 01/02/20 19:27 [From Depakote] Vomiting doxylamine [From NyQuil] AdvReac face "beet Verified 01/02/20 19:27 red", elevated temp. ibuprofen [From Motrin] AdvReac abdominal Verified 01/02/20 19:27 & muscle cramps indomethacin [From Indocin] AdvReac Abdominal Verified 01/02/20 19:27 Pain,N/V ketorolac tromethamine AdvReac "built up Verified 01/02/20 19:27 [From Toradol] in system", had to be given something to reverse lorazepam [From Ativan] AdvReac Nausea & Verified 01/02/20 19:27 Vomiting metoclopramide HCl AdvReac muscle Verified 01/02/20 19:27 [From Reglan] cramps nortriptyline [From Pamelor] AdvReac Chest Pain Verified 01/02/20 19:27 prasterone (DHEA) [From DHEA] AdvReac Chest Pain Verified 01/02/20 19:27 prochlorperazine AdvReac leg Verified 01/02/20 19:27 [From Compazine] cramping propranolol AdvReac Chest Pain Verified 01/02/20 19:27 pseudoephedrine HCl AdvReac face "beet Verified 01/02/20 19:27 [From NyQuil] red", elevated temp. quetiapine [From Seroquel] AdvReac leg Verified 01/02/20 19:27 cramping sumatriptan [From Imitrex] AdvReac migrane Verified 01/02/20 19:27 sumatriptan succinate AdvReac migrane Verified 01/02/20 19:27 [From Imitrex] topiramate [From Topamax] AdvReac "built up Verified 01/02/20 19:27 in system", had to be given something to reverse trazodone AdvReac "built up Verified 01/02/20 19:27 in system", had to be given something to reverse zolpidem tartrate AdvReac "Became Verified 01/02/20 19:27 [From Ambien] violent with no memory" zonisamide [From Zonegran] AdvReac inability Verified 01/02/20 19:27 to eat artificial sweetener AdvReac SEVERE Uncoded 01/02/20 19:27 MIGRAINE HEADACHE Review of Systems ROS Statement: Those systems with pertinent positive or pertinent negative responses have been documented in the HPI. ROS Other: All systems not noted in ROS Statement are negative. Past Medical History Past Medical History: Hyperlipidemia, Hypertension, Seizure Disorder Additional Past Medical History / Comment(s): Migraines, viral meningitis x3 as a child, 1995, 2000, chronic back pain, nerve blocks 08/2016 and 12/2016. Last seizure 05/26/19, "ABSENT SEIZURES. HX TACHYCARDIA, GB/CIPD, PTSD History of Any Multi-Drug Resistant Organisms: None Reported Past Surgical History: Appendectomy, Section, Cholecystectomy, Hernia Repair, Hysterectomy, Orthopedic Surgery, Tonsillectomy, Tubal Ligation Additional Past Surgical History / Comment(s): Hiatal Hernia, umbilical hernia repair, left rotator cuff repair, bilateral knee scopes, pain clinic procedures- occipital nerve block. abd exploratory sx(endometreosis), 3 abd scopes 1981, 1989, 1991), lumbar puncture. EGD. nerve biopsy, Past Anesthesia/Blood Transfusion Reactions: No Reported Reaction Additional Past Anesthesia/Blood Transfusion Reaction / Comment(s): Claustrophobic Past Psychological History: Anxiety, Bipolar, Panic Disorder, PTSD Smoking Status: Current every day smoker Past Alcohol Use History: None Reported Past Drug Use History: None Reported - Past Family History Mother Family Medical History: Cancer, Dementia, Diabetes Mellitus, GERD/Reflux, Hyperlipidemia, Hypertension, Thyroid Disorder Additional Family Medical History / Comment(s): Quad CABG, cardiac stents, toes ampuated. Father History Unknown: Yes Family Medical History: No Reported History General Exam Limitations: no limitations General appearance: alert (Well-nourished, well-developed female in no acute distress. Presenting vital signs include temperature 97.9F, pulse 95, respirations 18, blood pressure 151/85, pulse ox 100% on room air.), in no apparent distress Respiratory exam: Present: normal lung sounds bilaterally. Absent: respiratory distress, wheezes, rales, rhonchi, stridor Cardiovascular Exam: Present: regular rate, normal rhythm, normal heart sounds. Absent: systolic murmur, diastolic murmur, rubs, gallop, clicks Right Upper Leg exam: Present: normal inspection Knee exam: Present: normal inspection Lower Leg exam: Present: normal inspection Ankle exam: Present: tenderness, swelling Foot/Toe exam: Present: normal inspection Neurovascular tendon exam: Present: no vascular compromise (+2 pedal and posttibial pulses). Absent: pulse deficit, abnormal cap refill Neurological exam: Present: alert, oriented X3, CN II-XII intact Psychiatric exam: Present: normal affect, normal mood Skin exam: Present: warm, dry, intact, normal color. Absent: rash Course Vital Signs 01/02/20 19:24 Temperature 97.9 F Pulse Rate 95 Respiratory 18 Rate Blood Pressure 151/85 O2 Sat by Pulse 100 Oximetry Medical Decision Making - Medical Decision Making 49-year-old female patient presented to the emergency department today for evaluation of right ankle and foot injury. Physical examination did reveal soft tissue swelling surrounding the ankle and over the dorsum of the foot. She had no tenderness over the Lisfranc region. Neurovascular status is intact. X-rays were obtained and were negative for any acute fracture. Symptoms are consistent with sprain. We'll place an Arnoldo wrap and ankle stirrup splint. She'll be discharged follow-up with orthopedics for further evaluation given previous history of injury to this foot. She is instructed to follow-up with her primary care physician for recheck in 1-2 days. Return parameters were discussed in detail. She verbalizes understanding and agrees with this plan. - Radiology Data Radiology results: report reviewed, image reviewed X-ray of the right foot is obtained. Report was reviewed in its entirety. Impression by Dr. Irwin shows negative right foot exam. 3 views of the right ankle are obtained. Report reviewed in its entirety. Impression by Dr. Irwin shows mild soft tissue swelling. No fracture Disposition Clinical Impression: Right ankle sprain, Right foot sprain Disposition: HOME SELF-CARE Condition: Good Instructions (If sedation given, give patient instructions): Ankle Sprain (ED), Foot Sprain (ED) Additional Instructions: Rest, apply ice to affected area, Arnoldo wrap and ankle stirrup in place until evaluated by primary care provider in the next 1-2 days. May use Tylenol or Motrin for pain and discomfort. Return to the emergency department with any new, worsening, or concerning symptoms. Is patient prescribed a controlled substance at d/c from ED?: No Referrals: José Reece MD [Primary Care Provider] - 1-2 days Judd Montana MD [STAFF PHYSICIAN] - 1-2 days Time of Disposition: 20:33
--- NOTE | 2020-01-02 20:24 | XR ---
EXAMINATION TYPE: XR ankle complete RT DATE OF EXAM: 01/02/2020 COMPARISON: NONE HISTORY: Pain TECHNIQUE: 3 views FINDINGS: Ankle mortise is anatomic. There is mild soft tissue swelling around the ankle joint. I see no fracture. There is Achilles calcaneal spurring. IMPRESSION: Mild soft tissue swelling. No fracture.
--- NOTE | 2020-01-02 20:26 | XR ---
EXAMINATION TYPE: XR foot complete RT DATE OF EXAM: 01/02/2020 COMPARISON: NONE HISTORY: Fall. Pain. TECHNIQUE: 3 views FINDINGS: Metatarsals are intact. I see no fracture nor dislocation. Joint spaces are normal. IMPRESSION: Negative right foot exam.
== END 2020-01-02 20:35 | disposition home or self-care (01) ==
LOC: EC 19:23
DX: S93.401A Sprain of unspecified ligament of right ankle, initial encounter (principal); S93.601A Unspecified sprain of right foot, initial encounter; F17.200 Nicotine dependence, unspecified, uncomplicated; E78.5 Hyperlipidemia, unspecified; I10 Essential (primary) hypertension; G40.909 Epilepsy, unspecified, not intractable, without status epilepticus; G43.909 Migraine, unspecified, not intractable, without status migrainosus; F41.9 Anxiety disorder, unspecified; F31.9 Bipolar disorder, unspecified; F41.0 Panic disorder [episodic paroxysmal anxiety]; F43.10 Post-traumatic stress disorder, unspecified; G89.29 Other chronic pain; M54.9 Dorsalgia, unspecified; Z79.899 Other long term (current) drug therapy; Z88.8 Allergy status to other drugs, medicaments and biological substances; Z88.6 Allergy status to analgesic agent; Z88.5 Allergy status to narcotic agent; Z88.1 Allergy status to other antibiotic agents; Z91.040 Latex allergy status; Z98.890 Other specified postprocedural states; X50.1XXA Overexertion from prolonged static or awkward postures, initial encounter; Y93.89 Activity, other specified
CPT/HCPCS: 29515; 99283

== ENCOUNTER 2020-01-10 10:31 | Emergency (ER) | payer OTHER ==
[2020-01-10 10:36] VITALS: BP 152/100; PULSE 109; RESP 18; TEMP 99.3
[2020-01-10] MEDS ORDERED: diphenhydrAMINE 50 MG/ML 1 ML VIAL IM STA (10:51)
[2020-01-10] MEDS ORDERED: KETOROLAC 15 MG/ML 1 ML VIAL IM STA (10:51)
--- NOTE | 2020-01-10 10:56 | ED ---
General Adult HPI - General Chief complaint: Headache Stated complaint: Migraine/Vomiting Time Seen by Provider: 01/10/20 10:35 Source: patient, RN notes reviewed, old records reviewed Mode of arrival: ambulatory Limitations: no limitations - History of Present Illness Initial comments: This is a 49-year-old female who presents emergency Department complaining of migraine headache. Patient states she has chronic migraine headaches and this headache is no different than any previous migraine headache. Patient states his been ongoing for 4 days. Patient states she does not have a neurologist and she is seeing someone out of [facility] who is going to do a nerve block of her occipital nerve. Patient states the headache that started the back of her head. Patient states she is vomiting. Patient denies any other symptoms at this time. Patient denies chest pain difficulty breathing or shortness of breath per patient denies any fever or chills. - Related Data Home Medications Medication Instructions Recorded Confirmed Atorvastatin [Lipitor] 40 mg PO HS 04/02/17 01/10/20 Lacosamide [Vimpat] 100 mg PO BID 06/04/17 01/10/20 HYDROcodone/APAP 7.5-325MG [[place] 1 tab PO TID PRN 07/06/17 01/10/20 7.5-325] amLODIPine [Norvasc] 5 mg PO HS 10/26/18 01/10/20 Divalproex ER [Depakote ER] 500 mg PO HS 06/01/19 01/10/20 ARIPiprazole [Abilify] 5 mg PO HS 11/07/19 01/10/20 Albuterol Sulfate [Ventolin HFA] 1 - 2 puff INHALATION RT-Q6H PRN 11/07/19 01/10/20 hydrOXYzine pamoate [Vistaril] 50 mg PO BID 01/10/20 01/10/20 Allergies Allergy/AdvReac Type Severity Reaction Status Date / Time dihydroergotamine Allergy Unknown Unknown Verified 01/10/20 10:50 [From Migranal] gabapentin [From Neurontin] Allergy Itching/Swe Verified 01/10/20 10:50 lling latex Allergy Anaphylaxis Verified 01/10/20 10:50 naproxen [From Naprosyn] Allergy Anaphylaxis Verified 01/10/20 10:50 Penicillins Allergy Anaphylaxis Verified 01/10/20 10:50 prednisone Allergy Swelling Verified 01/10/20 10:50 quetiapine fumarate Allergy Itching, Verified 01/10/20 10:50 [From Seroquel] leg cramps rofecoxib [From Vioxx] Allergy Itching, Verified 01/10/20 10:50 leg cramps terfenadine [From Seldane] Allergy Rash/Hives Verified 01/10/20 10:50 tramadol Allergy Nausea & Verified 01/10/20 10:50 Vomiting/LEG CRAMPS/HEART FLUTTERS calcium carbonate [From DHEA] AdvReac Chest Pain Verified 01/10/20 10:50 calcium phosphate,dibasic AdvReac Chest Pain Verified 01/10/20 10:50 [From DHEA] clindamycin AdvReac muscle Verified 01/10/20 10:50 cramps clonidine AdvReac fast Verified 01/10/20 10:50 heartbeat, migraine dextromethorphan HBr AdvReac face/neck Verified 01/10/20 10:50 [From NyQuil] flushing diazepam [From Valium] AdvReac Nausea & Verified 01/10/20 10:50 Vomiting divalproex sodium AdvReac Nausea & Verified 01/10/20 10:50 [From Depakote] Vomiting doxylamine [From NyQuil] AdvReac face "beet Verified 01/10/20 10:50 red", elevated temp. ibuprofen [From Motrin] AdvReac abdominal Verified 01/10/20 10:50 & muscle cramps indomethacin [From Indocin] AdvReac Abdominal Verified 01/10/20 10:50 Pain,N/V ketorolac tromethamine AdvReac "built up Verified 01/10/20 10:50 [From Toradol] in system", had to be given something to reverse lorazepam [From Ativan] AdvReac Nausea & Verified 01/10/20 10:50 Vomiting metoclopramide HCl AdvReac muscle Verified 01/10/20 10:50 [From Reglan] cramps nortriptyline [From Pamelor] AdvReac Chest Pain Verified 01/10/20 10:50 prasterone (DHEA) [From DHEA] AdvReac Chest Pain Verified 01/10/20 10:50 prochlorperazine AdvReac leg Verified 01/10/20 10:50 [From Compazine] cramping propranolol AdvReac Chest Pain Verified 01/10/20 10:50 pseudoephedrine HCl AdvReac face "beet Verified 01/10/20 10:50 [From NyQuil] red", elevated temp. quetiapine [From Seroquel] AdvReac leg Verified 01/10/20 10:50 cramping sumatriptan [From Imitrex] AdvReac migrane Verified 01/10/20 10:50 sumatriptan succinate AdvReac migrane Verified 01/10/20 10:50 [From Imitrex] topiramate [From Topamax] AdvReac "built up Verified 01/10/20 10:50 in system", had to be given something to reverse trazodone AdvReac "built up Verified 01/10/20 10:50 in system", had to be given something to reverse zolpidem tartrate AdvReac "Became Verified 01/10/20 10:50 [From Ambien] violent with no memory" zonisamide [From Zonegran] AdvReac inability Verified 01/10/20 10:50 to eat artificial sweetener AdvReac SEVERE Uncoded 01/10/20 10:36 MIGRAINE HEADACHE Review of Systems ROS Statement: Those systems with pertinent positive or pertinent negative responses have been documented in the HPI. ROS Other: All systems not noted in ROS Statement are negative. Past Medical History Past Medical History: Hyperlipidemia, Hypertension, Seizure Disorder Additional Past Medical History / Comment(s): Migraines, viral meningitis x3 as a child, 1995, 2000, chronic back pain, nerve blocks 08/2016 and 12/2016. Last seizure 05/26/19, "ABSENT SEIZURES. HX TACHYCARDIA, GB/CIPD, PTSD History of Any Multi-Drug Resistant Organisms: None Reported Past Surgical History: Appendectomy, Section, Cholecystectomy, Hernia Repair, Hysterectomy, Orthopedic Surgery, Tonsillectomy, Tubal Ligation Additional Past Surgical History / Comment(s): Hiatal Hernia, umbilical hernia repair, left rotator cuff repair, bilateral knee scopes, pain clinic procedures- occipital nerve block. abd exploratory sx(endometreosis), 3 abd scopes 1981, 1989, 1991), lumbar puncture. EGD. nerve biopsy, salvalry gland biospy Past Anesthesia/Blood Transfusion Reactions: No Reported Reaction Additional Past Anesthesia/Blood Transfusion Reaction / Comment(s): Claustro phobic Past Psychological History: Anxiety, Bipolar, Panic Disorder, PTSD Smoking Status: Current every day smoker Past Alcohol Use History: None Reported Past Drug Use History: None Reported - Past Family History Mother Family Medical History: Cancer, Dementia, Diabetes Mellitus, GERD/Reflux, Hyperlipidemia, Hypertension, Thyroid Disorder Additional Family Medical History / Comment(s): Quad CABG, cardiac stents, toes ampuated. Father History Unknown: Yes Family Medical History: No Reported History General Exam - General Exam Comments Initial Comments: GENERAL: Patient is well-developed and well-nourished. Patient is nontoxic and well- hydrated and is in mild distress. ENT: Neck is soft and supple. No significant lymphadenopathy is noted. Oropharynx is clear. Moist mucous membranes. Neck has full range of motion without eliciting any pain. When I distract the patient she does not appear to be photophobic however when I ask her if she is photophobic conjunctiva lights in her eyes and she looks away quickly. EYES: The sclera were anicteric and conjunctiva were pink and moist. Extraocular movements were intact and pupils were equal round and reactive to light. Eyelids were unremarkable. PULMONARY: Unlabored respirations. Good breath sounds bilaterally. No audible rales rhonchi or wheezing was noted. CARDIOVASCULAR: There is a regular rate and rhythm without any murmurs gallops or rubs. ABDOMEN: Soft and nontender with normal bowel sounds. SKIN: Skin is clear with no lesions or rashes and otherwise unremarkable. NEUROLOGIC: Patient is alert and oriented x3. Cranial nerves II through XII are grossly intact. Motor and sensory are also intact. Normal speech, volume and content. Symmetrical smile. MUSCULOSKELETAL: Normal extremities with adequate strength and full range of motion. LYMPHATICS: No significant lymphadenopathy is noted PSYCHIATRIC: Normal psychiatric evaluation. Limitations: no limitations Course Vital Signs 01/10/20 10:33 Temperature 99.3 F Pulse Rate 109 H Respiratory 18 Rate Blood Pressure 152/100 O2 Sat by Pulse 95 Oximetry Disposition Clinical Impression: Chronic headaches Disposition: HOME SELF-CARE Instructions (If sedation given, give patient instructions): Migraine Headache (ED) Is patient prescribed a controlled substance at d/c from ED?: No Referrals: José Reece MD [Primary Care Provider] - 1-2 days Time of Disposition: :57
[2020-01-10] MEDS ORDERED: ONDANSETRON 4 MG ODT STARTER PACK 2 TAB BTL PO STA (10:58)
[2020-01-10] MEDS ORDERED: PROMETHAZINE INJ 25 MG/ML 1 ML VIAL IM STA (10:58)
== END 2020-01-10 11:30 | disposition home or self-care (01) ==
LOC: EC 10:31
DX: R51.9 Headache, unspecified (principal); E78.5 Hyperlipidemia, unspecified; I10 Essential (primary) hypertension; G40.909 Epilepsy, unspecified, not intractable, without status epilepticus; F31.9 Bipolar disorder, unspecified; F41.0 Panic disorder [episodic paroxysmal anxiety]; F43.10 Post-traumatic stress disorder, unspecified; G89.29 Other chronic pain; M54.9 Dorsalgia, unspecified; F17.200 Nicotine dependence, unspecified, uncomplicated; Z79.899 Other long term (current) drug therapy; Z88.8 Allergy status to other drugs, medicaments and biological substances; Z88.2 Allergy status to sulfonamides; Z88.1 Allergy status to other antibiotic agents; Z88.6 Allergy status to analgesic agent; Z88.0 Allergy status to penicillin; Z91.040 Latex allergy status; Z86.69 Personal history of other diseases of the nervous system and sense organs
CPT/HCPCS: 96372 ×3; 99283 ×2; J1200; J2550; S0119

== ENCOUNTER 2020-01-10 19:59 | Emergency (ER) | payer OTHER ==
[2020-01-10 20:04] VITALS: TEMP 97.8
[2020-01-10] MEDS ORDERED: ONDANSETRON 4 MG/2 ML VIAL IVP STA (20:22)
[2020-01-10] MEDS ORDERED: SODIUM CHLORIDE 0.9% 1,000 ML IV STA (20:22)
[2020-01-10] MEDS ORDERED: HYDROmorphone 0.5 MG/0.5 ML SYRINGE IVP STA (20:22)
[2020-01-10] MEDS ORDERED: diphenhydrAMINE 50 MG/ML 1 ML VIAL IVP STA (20:24)
[2020-01-10] MEDS ORDERED: HYDROmorphone 1 MG/ML 1 ML SYRINGE IVP STA (21:41)
--- NOTE | 2020-01-10 21:42 | ED ---
Headache HPI - General Chief Complaint: Headache Stated Complaint: Revisit Headache Time Seen by Provider: 01/10/20 20:08 Mode of arrival: ambulatory Limitations: no limitations - History of Present Illness Initial Comments: 49-year-old female patient presents to the emergency department today for evaluation of migraine headache. Patient states that he has had a migraine for the last 4 days. States she was seen and evaluated here earlier today and received IM injections. States she went home and slept when she woke up the headache was still present. States that the pain is in the back of her head. States that she is having pain in both eyes. She does report blurred vision with this. States she has had nausea and vomiting today. States that she does have a history of migraines any symptoms are consistent with her usual migraine pattern. She denies any new symptoms. She denies this being the worst headache of her life. Patient denies any recent rash, fever, chills, cough, shortness of breath, chest pain, abdominal pain, diarrhea, constipation, back pain, hematuria, dysuria, urinary urgency, urinary frequency, or any other complaints. - Related Data Home Medications Medication Instructions Recorded Confirmed Atorvastatin [Lipitor] 40 mg PO HS 04/02/17 01/10/20 Lacosamide [Vimpat] 100 mg PO BID 06/04/17 01/10/20 HYDROcodone/APAP 7.5-325MG [[place] 1 tab PO TID PRN 07/06/17 01/10/20 7.5-325] Divalproex ER [Depakote ER] 500 mg PO HS 06/01/19 01/10/20 ARIPiprazole [Abilify] 5 mg PO HS 11/07/19 01/10/20 Albuterol Sulfate [Ventolin HFA] 1 - 2 puff INHALATION RT-Q6H PRN 11/07/19 01/10/20 Cyanocobalamin (Vitamin B-12) 1,000 mcg PO DAILY 01/10/20 01/10/20 [Vitamin B-12] Cyclobenzaprine [Flexeril] 5 mg PO DAILY PRN 01/10/20 01/10/20 LORazepam [Ativan] 0.5 mg PO BID PRN 01/10/20 01/10/20 OLANZapine [ZyPREXA] 5 - 10 mg PO DAILY 01/10/20 01/10/20 Thiamine [Vitamin B-1] 100 mg PO DAILY 01/10/20 01/10/20 hydrOXYzine pamoate [Vistaril] 50 mg PO BID 01/10/20 01/10/20 Allergies Allergy/AdvReac Type Severity Reaction Status Date / Time dihydroergotamine Allergy Unknown Unknown Verified 01/10/20 10:50 [From Migranal] gabapentin [From Neurontin] Allergy Itching/Swe Verified 01/10/20 10:50 lling latex Allergy Anaphylaxis Verified 01/10/20 10:50 naproxen [From Naprosyn] Allergy Anaphylaxis Verified 01/10/20 10:50 Penicillins Allergy Anaphylaxis Verified 01/10/20 10:50 prednisone Allergy Swelling Verified 01/10/20 10:50 quetiapine fumarate Allergy Itching, Verified 01/10/20 10:50 [From Seroquel] leg cramps rofecoxib [From Vioxx] Allergy Itching, Verified 01/10/20 10:50 leg cramps terfenadine [From Seldane] Allergy Rash/Hives Verified 01/10/20 10:50 tramadol Allergy Nausea & Verified 01/10/20 10:50 Vomiting/LEG CRAMPS/HEART FLUTTERS calcium carbonate [From DHEA] AdvReac Chest Pain Verified 01/10/20 10:50 calcium phosphate,dibasic AdvReac Chest Pain Verified 01/10/20 10:50 [From DHEA] clindamycin AdvReac muscle Verified 01/10/20 10:50 cramps clonidine AdvReac fast Verified 01/10/20 10:50 heartbeat, migraine dextromethorphan HBr AdvReac face/neck Verified 01/10/20 10:50 [From NyQuil] flushing diazepam [From Valium] AdvReac Nausea & Verified 01/10/20 10:50 Vomiting divalproex sodium AdvReac Nausea & Verified 01/10/20 10:50 [From Depakote] Vomiting doxylamine [From NyQuil] AdvReac face "beet Verified 01/10/20 10:50 red", elevated temp. ibuprofen [From Motrin] AdvReac abdominal Verified 01/10/20 10:50 & muscle cramps indomethacin [From Indocin] AdvReac Abdominal Verified 01/10/20 10:50 Pain,N/V ketorolac tromethamine AdvReac "built up Verified 01/10/20 10:50 [From Toradol] in system", had to be given something to reverse lorazepam [From Ativan] AdvReac Nausea & Verified 01/10/20 10:50 Vomiting metoclopramide HCl AdvReac muscle Verified 01/10/20 10:50 [From Reglan] cramps nortriptyline [From Pamelor] AdvReac Chest Pain Verified 01/10/20 10:50 prasterone (DHEA) [From DHEA] AdvReac Chest Pain Verified 01/10/20 10:50 prochlorperazine AdvReac leg Verified 01/10/20 10:50 [From Compazine] cramping propranolol AdvReac Chest Pain Verified 01/10/20 10:50 pseudoephedrine HCl AdvReac face "beet Verified 01/10/20 10:50 [From NyQuil] red", elevated temp. quetiapine [From Seroquel] AdvReac leg Verified 01/10/20 10:50 cramping sumatriptan [From Imitrex] AdvReac migrane Verified 01/10/20 10:50 sumatriptan succinate AdvReac migrane Verified 01/10/20 10:50 [From Imitrex] topiramate [From Topamax] AdvReac "built up Verified 01/10/20 10:50 in system", had to be given something to reverse trazodone AdvReac "built up Verified 01/10/20 10:50 in system", had to be given something to reverse zolpidem tartrate AdvReac "Became Verified 01/10/20 10:50 [From Ambien] violent with no memory" zonisamide [From Zonegran] AdvReac inability Verified 01/10/20 10:50 to eat artificial sweetener AdvReac SEVERE Uncoded 01/10/20 10:36 MIGRAINE HEADACHE Review of Systems ROS Statement: Those systems with pertinent positive or pertinent negative responses have been documented in the HPI. ROS Other: All systems not noted in ROS Statement are negative. Past Medical History Past Medical History: Hyperlipidemia, Hypertension, Seizure Disorder Additional Past Medical History / Comment(s): Migraines, viral meningitis x3 as a child, 1995, 2000, chronic back pain, nerve blocks 08/2016 and 12/2016. Last seizure 05/26/19, "ABSENT SEIZURES. HX TACHYCARDIA, GB/CIPD, PTSD History of Any Multi-Drug Resistant Organisms: None Reported Past Surgical History: Appendectomy, Section, Cholecystectomy, Hernia Repair, Hysterectomy, Orthopedic Surgery, Tonsillectomy, Tubal Ligation Additional Past Surgical History / Comment(s): Hiatal Hernia, umbilical hernia repair, left rotator cuff repair, bilateral knee scopes, pain clinic procedures- occipital nerve block. abd exploratory sx(endometreosis), 3 abd scopes 1981, 1989, 1991), lumbar puncture. EGD. nerve biopsy, salvalry gland biospy Past Anesthesia/Blood Transfusion Reactions: No Reported Reaction Additional Past Anesthesia/Blood Transfusion Reaction / Comment(s): Claustrophobic Past Psychological History: Anxiety, Bipolar, Panic Disorder, PTSD Smoking Status: Current every day smoker Past Alcohol Use History: None Reported Past Drug Use History: None Reported - Past Family History Mother Family Medical History: Cancer, Dementia, Diabetes Mellitus, GERD/Reflux, Hyperlipidemia, Hypertension, Thyroid Disorder Additional Family Medical History / Comment(s): Quad CABG, cardiac stents, toes ampuated. Father History Unknown: Yes Family Medical History: No Reported History General Exam Limitations: no limitations General appearance: alert, in no apparent distress, other (This is a well- developed, well-nourished adult female patient in no acute distress. Vital signs upon presentation are temperature 97.8F, pulse 120, respirations 20, blood pressure 162/102, pulse ox 96% on room air.) Eye exam: Present: normal appearance, PERRL, EOMI. Absent: scleral icterus, conjunctival injection, nystagmus, periorbital swelling ENT exam: Present: normal exam, normal oropharynx, mucous membranes moist Respiratory exam: Present: normal lung sounds bilaterally. Absent: respiratory distress, wheezes, rales, rhonchi, stridor Cardiovascular Exam: Present: regular rate, normal rhythm, normal heart sounds. Absent: systolic murmur, diastolic murmur, rubs, gallop, clicks GI/Abdominal exam: Present: soft, normal bowel sounds. Absent: distended, tenderness, guarding, rebound, rigid Neurological exam: Present: alert, oriented X3, CN II-XII intact, other (Strength in all 4 extremity is is 5/5.) Psychiatric exam: Present: normal affect, normal mood Skin exam: Present: warm, dry, intact, normal color. Absent: rash Course Vital Signs 01/10/20 20:01 Temperature 97.8 F Pulse Rate 120 H Respiratory 20 Rate Blood Pressure 162/102 O2 Sat by Pulse 96 Oximetry Medical Decision Making - Medical Decision Making 49-year-old female patient presents to the emergency department today for evaluation of migraine headache for the last 4 days. Physical examination is unremarkable. She is neurologically intact with no focal deficits. States her symptoms are consistent with her usual migraine pattern. She is given IV fluids and pain medications here in the department. Upon reevaluation shows report improvement of symptoms. She'll be discharged this time to follow-up with her primary care physician for recheck in 1-2 days. Return parameters discussed in detail. She verbalizes understanding and agrees with this plan. Disposition Clinical Impression: Migraine headache Disposition: HOME SELF-CARE Condition: Good Instructions (If sedation given, give patient instructions): Migraine Headache (ED) Additional Instructions: Follow up with your primary care physician for recheck in 1-2 days. Return to the emergency department immediately for any new, worsening, or concerning symptoms. Is patient prescribed a controlled substance at d/c from ED?: No Referrals: José Reece MD [Primary Care Provider] - 1-2 days Time of Disposition: 21:42
[2020-01-10 22:38] VITALS: BP 154/106; PULSE 89; RESP 16
== END 2020-01-10 22:39 | disposition home or self-care (01) ==
LOC: EC 19:59
DX: G43.909 Migraine, unspecified, not intractable, without status migrainosus (principal); E78.5 Hyperlipidemia, unspecified; G89.29 Other chronic pain; M54.9 Dorsalgia, unspecified; G40.909 Epilepsy, unspecified, not intractable, without status epilepticus; F41.9 Anxiety disorder, unspecified; F31.9 Bipolar disorder, unspecified; F43.10 Post-traumatic stress disorder, unspecified; F41.0 Panic disorder [episodic paroxysmal anxiety]; F17.200 Nicotine dependence, unspecified, uncomplicated; Z79.899 Other long term (current) drug therapy; Z88.8 Allergy status to other drugs, medicaments and biological substances; Z91.040 Latex allergy status; Z88.6 Allergy status to analgesic agent; Z88.0 Allergy status to penicillin; Z88.5 Allergy status to narcotic agent; Z91.09 Other allergy status, other than to drugs and biological substances; Z88.1 Allergy status to other antibiotic agents; Z91.02 Food additives allergy status
CPT/HCPCS: 99283; 96374; 96375 ×2; 96376; 96361 ×2; J1200; J2405; J1170 ×2

== ENCOUNTER 2020-01-26 19:51 | Emergency (ER) | payer OTHER ==
[2020-01-26 20:02] VITALS: RESP 18
[2020-01-26] MEDS ORDERED: SODIUM CHLORIDE 0.9% 1,000 ML IV ONE (20:15)
[2020-01-26] MEDS ORDERED: ONDANSETRON 4 MG/2 ML VIAL IVP STA (20:15)
[2020-01-26] MEDS ORDERED: HYDROmorphone 1 MG/ML 1 ML SYRINGE IVP STA ×2 (20:15→21:27)
[2020-01-26] MEDS ORDERED: diphenhydrAMINE 50 MG/ML 1 ML VIAL IVP STA (20:15)
--- NOTE | 2020-01-26 20:18 | ED ---
Headache HPI - General Chief Complaint: Headache Stated Complaint: migraine Time Seen by Provider: 01/26/20 20:04 Mode of arrival: wheelchair Limitations: no limitations - History of Present Illness Initial Comments: 49-year-old female patient presents to the emergency department today for evaluation of migraine headache. Patient does have a history of migraines and states her symptoms are consistent with her usual migraine pattern. This includes a generalized headache, blurred vision, nausea, vomiting. States that she has had this headache for the last week. States her usual medications are not helping. States that she has been evaluated at [facility] and her insurance declined to fill a new medication from them. She is set to undergo an occipital nerve block in 2 weeks. She denies any numbness, tingling, weakness to her extremities. Denies any recent head injury. Patient denies any recent rash, fever, chills, cough, shortness of breath, chest pain, abdominal pain, diarrhea, constipation, back pain, numbness, tingling, dizziness, weakness, hematuria, dysuria, urinary urgency, urinary frequency, or any other complaints. - Related Data Home Medications Medication Instructions Recorded Confirmed Atorvastatin [Lipitor] 40 mg PO HS 04/02/17 01/26/20 Lacosamide [Vimpat] 100 mg PO BID 06/04/17 01/26/20 HYDROcodone/APAP 7.5-325MG [[place] 1 tab PO TID PRN 07/06/17 01/26/20 7.5-325] ARIPiprazole [Abilify] 5 mg PO HS 11/07/19 01/26/20 Albuterol Sulfate [Ventolin HFA] 1 - 2 puff INHALATION RT-Q6H PRN 11/07/19 01/26/20 Cyanocobalamin (Vitamin B-12) 1,000 mcg PO DAILY 01/10/20 01/26/20 [Vitamin B-12] Cyclobenzaprine [Flexeril] 5 mg PO DAILY PRN 01/10/20 01/26/20 Thiamine [Vitamin B-1] 100 mg PO DAILY 01/10/20 01/26/20 Allergies Allergy/AdvReac Type Severity Reaction Status Date / Time dihydroergotamine Allergy Unknown Unknown Verified 01/26/20 21:30 [From Migranal] gabapentin [From Neurontin] Allergy Itching/Swe Verified 01/26/20 21:30 lling latex Allergy Anaphylaxis Verified 01/26/20 21:30 naproxen [From Naprosyn] Allergy Anaphylaxis Verified 01/26/20 21:30 Penicillins Allergy Anaphylaxis Verified 01/26/20 21:30 prednisone Allergy Swelling Verified 01/26/20 21:30 quetiapine fumarate Allergy Itching, Verified 01/26/20 21:30 [From Seroquel] leg cramps rofecoxib [From Vioxx] Allergy Itching, Verified 01/26/20 21:30 leg cramps terfenadine [From Seldane] Allergy Rash/Hives Verified 01/26/20 21:30 tramadol Allergy Nausea & Verified 01/26/20 21:30 Vomiting/LEG CRAMPS/HEART FLUTTERS calcium carbonate [From DHEA] AdvReac Chest Pain Verified 01/26/20 21:30 calcium phosphate,dibasic AdvReac Chest Pain Verified 01/26/20 21:30 [From DHEA] clindamycin AdvReac muscle Verified 01/26/20 21:30 cramps clonidine AdvReac fast Verified 01/26/20 21:30 heartbeat, migraine dextromethorphan HBr AdvReac face/neck Verified 01/26/20 21:30 [From NyQuil] flushing diazepam [From Valium] AdvReac Nausea & Verified 01/26/20 21:30 Vomiting divalproex sodium AdvReac Nausea & Verified 01/26/20 21:30 [From Depakote] Vomiting doxylamine [From NyQuil] AdvReac face "beet Verified 01/26/20 21:30 red", elevated temp. ibuprofen [From Motrin] AdvReac abdominal Verified 01/26/20 21:30 & muscle cramps indomethacin [From Indocin] AdvReac Abdominal Verified 01/26/20 21:30 Pain,N/V ketorolac tromethamine AdvReac "built up Verified 01/26/20 21:30 [From Toradol] in system", had to be given something to reverse lorazepam [From Ativan] AdvReac Nausea & Verified 01/26/20 21:30 Vomiting metoclopramide HCl AdvReac muscle Verified 01/26/20 21:30 [From Reglan] cramps nortriptyline [From Pamelor] AdvReac Chest Pain Verified 01/26/20 21:30 prasterone (DHEA) [From DHEA] AdvReac Chest Pain Verified 01/26/20 21:30 prochlorperazine AdvReac leg Verified 01/26/20 21:30 [From Compazine] cramping propranolol AdvReac Chest Pain Verified 01/26/20 21:30 pseudoephedrine HCl AdvReac face "beet Verified 01/26/20 21:30 [From NyQuil] red", elevated temp. quetiapine [From Seroquel] AdvReac leg Verified 01/26/20 21:30 cramping sumatriptan [From Imitrex] AdvReac migrane Verified 01/26/20 21:30 sumatriptan succinate AdvReac migrane Verified 01/26/20 21:30 [From Imitrex] topiramate [From Topamax] AdvReac "built up Verified 01/26/20 21:30 in system", had to be given something to reverse trazodone AdvReac "built up Verified 01/26/20 21:30 in system", had to be given something to reverse zolpidem tartrate AdvReac "Became Verified 01/26/20 21:30 [From Ambien] violent with no memory" zonisamide [From Zonegran] AdvReac inability Verified 01/26/20 21:30 to eat artificial sweetener AdvReac SEVERE Uncoded 01/26/20 21:30 MIGRAINE HEADACHE Review of Systems ROS Statement: Those systems with pertinent positive or pertinent negative responses have been documented in the HPI. ROS Other: All systems not noted in ROS Statement are negative. Past Medical History Past Medical History: Hyperlipidemia, Hypertension, Seizure Disorder Additional Past Medical History / Comment(s): Migraines, viral meningitis x3 as a child, 1995, 2000, chronic back pain, nerve blocks 08/2016 and 12/2016. Last seizure 05/26/19, "ABSENT SEIZURES. HX TACHYCARDIA, GB/CIPD, PTSD History of Any Multi-Drug Resistant Organisms: None Reported Past Surgical History: Appendectomy, Section, Cholecystectomy, Hernia Repair, Hysterectomy, Orthopedic Surgery, Tonsillectomy, Tubal Ligation Additional Past Surgical History / Comment(s): Hiatal Hernia, umbilical hernia repair, left rotator cuff repair, bilateral knee scopes, pain clinic procedures- occipital nerve block. abd exploratory sx(endometreosis), 3 abd scopes 1981, 1989, 1991), lumbar puncture. EGD. nerve biopsy, salvalry gland biospy Past Anesthesia/Blood Transfusion Reactions: No Reported Reaction Additional Past Anesthesia/Blood Transfusion Reaction / Comment(s): Claustroph obic Past Psychological History: Anxiety, Bipolar, Panic Disorder, PTSD Smoking Status: Current every day smoker Past Alcohol Use History: None Reported Past Drug Use History: None Reported - Past Family History Mother Family Medical History: Cancer, Dementia, Diabetes Mellitus, GERD/Reflux, Hyperlipidemia, Hypertension, Thyroid Disorder Additional Family Medical History / Comment(s): Quad CABG, cardiac stents, toes ampuated. Father History Unknown: Yes Family Medical History: No Reported History General Exam Limitations: no limitations General appearance: alert, in no apparent distress, other (This is a well- developed, adult female patient in no acute distress. Vital signs upon presentation are temperature 97.8F, pulse 93, respirations 18, blood pressure 149/103, pulse ox 98% on room air.) Eye exam: Present: normal appearance, PERRL, EOMI. Absent: scleral icterus, conjunctival injection, nystagmus, periorbital swelling ENT exam: Present: normal exam, normal oropharynx, mucous membranes moist Respiratory exam: Present: normal lung sounds bilaterally. Absent: respiratory distress, wheezes, rales, rhonchi, stridor Cardiovascular Exam: Present: regular rate, normal rhythm, normal heart sounds. Absent: systolic murmur, diastolic murmur, rubs, gallop, clicks Neurological exam: Present: alert, oriented X3, CN II-XII intact, other (Strength in all 4 extremities is 5/5.) Psychiatric exam: Present: normal affect, normal mood Skin exam: Present: warm, dry, intact, normal color. Absent: rash Course Vital Signs 01/26/20 19:58 Temperature 97.8 F Pulse Rate 93 Respiratory 18 Rate Blood Pressure 149/103 O2 Sat by Pulse 98 Oximetry Medical Decision Making - Medical Decision Making 49-year-old female patient that medical history significant for migraine headaches presents to the emergency department today for evaluation of migraine headache for the last week. Patient states she has been taking her home medication without relief. States that tonight she is given take anymore. De nies any new symptoms with this. Physical examination is unremarkable. She is neurologically intact with no focal deficits. She is given IV fluids, pain medication, nausea medication. She'll be discharged at this time to follow-up with her primary care physician and neurologist for further evaluation. Return parameters were discussed in detail. She verbalizes understanding and agrees with this plan. Disposition Clinical Impression: Migraine headache Disposition: HOME SELF-CARE Condition: Good Instructions (If sedation given, give patient instructions): Migraine Headache (ED) Additional Instructions: Continue home medications. Increase fluids. Rest. Follow-up with your primary care physician for recheck in 1-2 days. Return to the emergency department immediately for any new, worsening, or concerning symptoms. Is patient prescribed a controlled substance at d/c from ED?: No Referrals: José Reece MD [Primary Care Provider] - 1-2 days Time of Disposition: 21:27
[2020-01-26 22:19] VITALS: BP 128/99; PULSE 92; TEMP 98.4
== END 2020-01-26 22:19 | disposition home or self-care (01) ==
LOC: EC 19:51
DX: G43.909 Migraine, unspecified, not intractable, without status migrainosus (principal); G40.909 Epilepsy, unspecified, not intractable, without status epilepticus; E78.5 Hyperlipidemia, unspecified; I10 Essential (primary) hypertension; F31.9 Bipolar disorder, unspecified; F41.0 Panic disorder [episodic paroxysmal anxiety]; F43.10 Post-traumatic stress disorder, unspecified; F17.200 Nicotine dependence, unspecified, uncomplicated; G89.29 Other chronic pain; M54.9 Dorsalgia, unspecified; Z79.899 Other long term (current) drug therapy; Z88.8 Allergy status to other drugs, medicaments and biological substances; Z88.1 Allergy status to other antibiotic agents; Z88.6 Allergy status to analgesic agent; Z88.5 Allergy status to narcotic agent; Z88.0 Allergy status to penicillin; Z91.040 Latex allergy status
CPT/HCPCS: 99283; 96374; 96375 ×2; 96376; 96361; J1200; J2405; J1170

== ENCOUNTER 2020-02-03 19:31 | Emergency (ER) | payer OTHER ==
[2020-02-03 19:35] VITALS: RESP 18
--- NOTE | 2020-02-03 20:02 | ED ---
Headache HPI - General Mode of arrival: wheelchair Limitations: no limitations <Alli Knowles - Last Filed: 02/03/20 20:32> <Minerva Eller - Last Filed: 02/06/20 21:59> - General Chief Complaint: Headache Stated Complaint: Headache - History of Present Illness Initial Comments: Patient is a 49-year-old female with history of migraines presenting to emergency Department with a chief complaint of headache nausea vomiting. Patient states this feels exactly like her every other migraine. Patient reports she has photosensitivity, nausea or vomiting. States she's not been able to keep any oral stomp. Patient states there is unilateral headache without any visual disturbances. States this headache is benign when for the past several days. He states this was a gradual onset and not the worst headache of her life. Denies any unilateral weakness or paresthesias. (Alli Knowles) - Related Data Home Medications Medication Instructions Recorded Confirmed Atorvastatin [Lipitor] 40 mg PO HS 04/02/17 01/26/20 Lacosamide [Vimpat] 100 mg PO BID 06/04/17 01/26/20 HYDROcodone/APAP 7.5-325MG [[place] 1 tab PO TID PRN 07/06/17 01/26/20 7.5-325] ARIPiprazole [Abilify] 5 mg PO HS 11/07/19 01/26/20 Albuterol Sulfate [Ventolin HFA] 1 - 2 puff INHALATION RT-Q6H PRN 11/07/19 01/26/20 Cyanocobalamin (Vitamin B-12) 1,000 mcg PO DAILY 01/10/20 01/26/20 [Vitamin B-12] Cyclobenzaprine [Flexeril] 5 mg PO DAILY PRN 01/10/20 01/26/20 Thiamine [Vitamin B-1] 100 mg PO DAILY 01/10/20 01/26/20 Allergies Allergy/AdvReac Type Severity Reaction Status Date / Time dihydroergotamine Allergy Unknown Unknown Verified 02/03/20 19:35 [From Migranal] gabapentin [From Neurontin] Allergy Itching/Swe Verified 02/03/20 19:35 lling latex Allergy Anaphylaxis Verified 02/03/20 19:35 naproxen [From Naprosyn] Allergy Anaphylaxis Verified 02/03/20 19:35 Penicillins Allergy Anaphylaxis Verified 02/03/20 19:35 prednisone Allergy Swelling Verified 02/03/20 19:35 quetiapine fumarate Allergy Itching, Verified 02/03/20 19:35 [From Seroquel] leg cramps rofecoxib [From Vioxx] Allergy Itching, Verified 02/03/20 19:35 leg cramps terfenadine [From Seldane] Allergy Rash/Hives Verified 02/03/20 19:35 tramadol Allergy Nausea & Verified 02/03/20 19:35 Vomiting/LEG CRAMPS/HEART FLUTTERS calcium carbonate [From DHEA] AdvReac Chest Pain Verified 02/03/20 19:35 calcium phosphate,dibasic AdvReac Chest Pain Verified 02/03/20 19:35 [From DHEA] clindamycin AdvReac muscle Verified 02/03/20 19:35 cramps clonidine AdvReac fast Verified 02/03/20 19:35 heartbeat, migraine dextromethorphan HBr AdvReac face/neck Verified 02/03/20 19:35 [From NyQuil] flushing diazepam [From Valium] AdvReac Nausea & Verified 02/03/20 19:35 Vomiting divalproex sodium AdvReac Nausea & Verified 02/03/20 19:35 [From Depakote] Vomiting doxylamine [From NyQuil] AdvReac face "beet Verified 02/03/20 19:35 red", elevated temp. ibuprofen [From Motrin] AdvReac abdominal Verified 02/03/20 19:35 & muscle cramps indomethacin [From Indocin] AdvReac Abdominal Verified 02/03/20 19:35 Pain,N/V ketorolac tromethamine AdvReac "built up Verified 02/03/20 19:35 [From Toradol] in system", had to be given something to reverse lorazepam [From Ativan] AdvReac Nausea & Verified 02/03/20 19:35 Vomiting metoclopramide HCl AdvReac muscle Verified 02/03/20 19:35 [From Reglan] cramps nortriptyline [From Pamelor] AdvReac Chest Pain Verified 02/03/20 19:35 prasterone (DHEA) [From DHEA] AdvReac Chest Pain Verified 02/03/20 19:35 prochlorperazine AdvReac leg Verified 02/03/20 19:35 [From Compazine] cramping propranolol AdvReac Chest Pain Verified 02/03/20 19:35 pseudoephedrine HCl AdvReac face "beet Verified 02/03/20 19:35 [From NyQuil] red", elevated temp. quetiapine [From Seroquel] AdvReac leg Verified 02/03/20 19:35 cramping sumatriptan [From Imitrex] AdvReac migrane Verified 02/03/20 19:35 sumatriptan succinate AdvReac migrane Verified 02/03/20 19:35 [From Imitrex] topiramate [From Topamax] AdvReac "built up Verified 02/03/20 19:35 in system", had to be given something to reverse trazodone AdvReac "built up Verified 02/03/20 19:35 in system", had to be given something to reverse zolpidem tartrate AdvReac "Became Verified 02/03/20 19:35 [From Ambien] violent with no memory" zonisamide [From Zonegran] AdvReac inability Verified 02/03/20 19:35 to eat artificial sweetener AdvReac SEVERE Uncoded 02/03/20 19:35 MIGRAINE HEADACHE Review of Systems ROS Other: All systems not noted in ROS Statement are negative. <Alli Knowles - Last Filed: 02/03/20 20:32> ROS Other: All systems not noted in ROS Statement are negative. <Minerva Eller - Last Filed: 02/06/20 21:59> ROS Statement: Those systems with pertinent positive or pertinent negative responses have been documented in the HPI. Past Medical History Past Medical History: Hyperlipidemia, Hypertension, Seizure Disorder Additional Past Medical History / Comment(s): Migraines, viral meningitis x3 as a child, 1995, 2000, chronic back pain, nerve blocks 08/2016 and 12/2016. Last seizure 05/26/19, "ABSENT SEIZURES. HX TACHYCARDIA, GB/CIPD, PTSD History of Any Multi-Drug Resistant Organisms: None Reported Past Surgical History: Appendectomy, Section, Cholecystectomy, Hernia Repair, Hysterectomy, Orthopedic Surgery, Tonsillectomy, Tubal Ligation Additional Past Surgical History / Comment(s): Hiatal Hernia, umbilical hernia repair, left rotator cuff repair, bilateral knee scopes, pain clinic procedures- occipital nerve block. abd exploratory sx(endometreosis), 3 abd scopes 1981, 1989, 1991), lumbar puncture. EGD. nerve biopsy, salvalry gland biospy Past Anesthesia/Blood Transfusion Reactions: No Reported Reaction Additional Past Anesthesia/Blood Transfusion Reaction / Comment(s): Claustrophobic Past Psychological History: Anxiety, Bipolar, Panic Disorder, PTSD Smoking Status: Current every day smoker Past Alcohol Use History: None Reported Past Drug Use History: None Reported - Past Family History Mother Family Medical History: Cancer, Dementia, Diabetes Mellitus, GERD/Reflux, Hyperlipidemia, Hypertension, Thyroid Disorder Additional Family Medical History / Comment(s): Quad CABG, cardiac stents, toes ampuated. Father History Unknown: Yes Family Medical History: No Reported History <Alli Knowles Last Filed: 02/03/20 20:32> General Exam Limitations: no limitations General appearance: alert, in no apparent distress Head exam: Present: atraumatic, normocephalic, normal inspection Eye exam: Present: normal appearance, PERRL, EOMI Pupils: Present: normal accommodation ENT exam: Present: normal exam, normal oropharynx, mucous membranes moist, TM's normal bilaterally, normal external ear exam Neck exam: Present: normal inspection, full ROM. Absent: tenderness Respiratory exam: Present: normal lung sounds bilaterally. Absent: respiratory distress, wheezes, rales Cardiovascular Exam: Present: regular rate, normal rhythm, normal heart sounds Extremities exam: Present: normal inspection, full ROM, normal capillary refill. Absent: tenderness Back exam: Present: normal inspection, full ROM. Absent: tenderness, CVA tenderness (R), CVA tenderness (L) Neurological exam: Present: alert, oriented X3 Psychiatric exam: Present: normal affect, normal mood Skin exam: Present: warm, dry, intact, normal color <Alli Knowles Last Filed: 02/03/20 20:32> Course Vital Signs 02/03/20 02/03/20 19:32 21:58 Temperature 99 F 98.3 F Pulse Rate 104 H 77 Respiratory 18 18 Rate Blood Pressure 158/96 136/86 O2 Sat by Pulse 99 99 Oximetry Medical Decision Making <Alli Knowles Last Filed: 02/03/20 20:32> <Minerva Eller - Last Filed: 02/06/20 21:59> - Medical Decision Making Patient a 49-year-old female with history of recurrent migraines presenting to emergency Department with chief complaint of migraine. Physical examination, patient has very strong for sensitivity. She is nauseous but did not vomit in the emergency department. Patient was given IV fluids, antiemetics and analgesia. On reevaluation, patient reports improvement in his symptoms. Patient states that she is comfortable going home. Strict return parameters were thoroughly discussed with patient was up standing agreeable. Case discussed with physician. (Alli Knowles) I was available for consultation in the emergency department. The history and physical exam were done by the midlevel provider. I was consulted for this patients care. I reviewed the case with the midlevel provider and based on their presentation of the patient, I agree with the assessment, medical decision making and plan of care as documented. Chart was dictated using [employer] dictation software. Attempts were made to correct any dictation errors however some typographical errors may persist. Patient was seen during a national state of emergency due to the Covid-19 pandemic. (Minerva Eller) Disposition Is patient prescribed a controlled substance at d/c from ED?: No Time of Disposition: 20:35 <Alli Knowles - Last Filed: 02/03/20 20:32> <Minerva Eller - Last Filed: 02/06/20 21:59> Clinical Impression: Migraine, Headache Disposition: HOME SELF-CARE Condition: Stable Instructions (If sedation given, give patient instructions): Acute Headache (ED) Additional Instructions: Follow-up with a neurologist. Return to emergency department if symptoms wors en. Referrals: José Reece MD [Primary Care Provider] - 1-2 days
[2020-02-03] MEDS ORDERED: HYDROmorphone 1 MG/ML 1 ML SYRINGE IM STA (20:08)
[2020-02-03] MEDS ORDERED: SODIUM CHLORIDE 0.9% 1,000 ML IV STA (20:17)
[2020-02-03] MEDS ORDERED: ONDANSETRON 4 MG/2 ML VIAL IVP STA (20:17)
[2020-02-03] MEDS ORDERED: HYDROmorphone 1 MG/ML 1 ML SYRINGE IVP STA ×2 (20:33→21:13)
[2020-02-03] MEDS ORDERED: diphenhydrAMINE 50 MG/ML 1 ML VIAL IVP STA (21:05)
[2020-02-03 22:00] VITALS: BP 136/86; PULSE 77; TEMP 98.3
== END 2020-02-03 21:59 | disposition home or self-care (01) ==
LOC: EC 19:31
DX: G43.909 Migraine, unspecified, not intractable, without status migrainosus (principal); E78.5 Hyperlipidemia, unspecified; G89.29 Other chronic pain; M54.9 Dorsalgia, unspecified; G40.909 Epilepsy, unspecified, not intractable, without status epilepticus; F31.9 Bipolar disorder, unspecified; F43.10 Post-traumatic stress disorder, unspecified; F17.200 Nicotine dependence, unspecified, uncomplicated; Z79.899 Other long term (current) drug therapy; Z88.8 Allergy status to other drugs, medicaments and biological substances; Z91.040 Latex allergy status; Z88.0 Allergy status to penicillin; Z88.6 Allergy status to analgesic agent; Z88.5 Allergy status to narcotic agent; Z88.1 Allergy status to other antibiotic agents; Z91.09 Other allergy status, other than to drugs and biological substances; Z91.02 Food additives allergy status
CPT/HCPCS: 99283; 96374; 96375 ×2; 96376; 96361; J1200; J2405; J1170

== ENCOUNTER 2020-02-12 23:43 | Emergency (ER) | payer OTHER ==
[2020-02-13] MEDS ORDERED: HYDROmorphone 1 MG/ML 1 ML SYRINGE IVP STA (00:22)
[2020-02-13] MEDS ORDERED: SODIUM CHLORIDE 0.9% 1,000 ML IV STA (00:22)
[2020-02-13] MEDS ORDERED: diphenhydrAMINE 50 MG/ML 1 ML VIAL IVP STA (00:22)
--- NOTE | 2020-02-13 00:33 | ED ---
General Adult HPI - General Chief complaint: Headache Stated complaint: Migraine Time Seen by Provider: 02/12/20 23:58 Source: patient, family, RN notes reviewed Mode of arrival: ambulatory Limitations: no limitations - History of Present Illness Initial comments: Patient is a 49-year-old female well-known to this emergency room for migraines. Patient presents today for a migraine. Reports this has been ongoing since last week when she had a nerve block. Patient reports this is consistent with previous migraines. Admits to photophobia and sensitivity to sound. Admits to nausea. Patient denies any sudden onset of symptoms. Patient has no other complaints at this time including shortness of breath, chest pain, abdominal pain, nausea or vomiting, or visual changes. - Related Data Home Medications Medication Instructions Recorded Confirmed Atorvastatin [Lipitor] 40 mg PO HS 04/02/17 01/26/20 Lacosamide [Vimpat] 100 mg PO BID 06/04/17 01/26/20 HYDROcodone/APAP 7.5-325MG [[place] 1 tab PO TID PRN 07/06/17 01/26/20 7.5-325] ARIPiprazole [Abilify] 5 mg PO HS 11/07/19 01/26/20 Albuterol Sulfate [Ventolin HFA] 1 - 2 puff INHALATION RT-Q6H PRN 11/07/19 01/26/20 Cyanocobalamin (Vitamin B-12) 1,000 mcg PO DAILY 01/10/20 01/26/20 [Vitamin B-12] Cyclobenzaprine [Flexeril] 5 mg PO DAILY PRN 01/10/20 01/26/20 Thiamine [Vitamin B-1] 100 mg PO DAILY 01/10/20 01/26/20 Allergies Allergy/AdvReac Type Severity Reaction Status Date / Time dihydroergotamine Allergy Unknown Unknown Verified 02/12/20 23:49 [From Migranal] gabapentin [From Neurontin] Allergy Itching/Swe Verified 02/12/20 23:49 lling latex Allergy Anaphylaxis Verified 02/12/20 23:49 naproxen [From Naprosyn] Allergy Anaphylaxis Verified 02/12/20 23:49 Penicillins Allergy Anaphylaxis Verified 02/12/20 23:49 prednisone Allergy Swelling Verified 02/12/20 23:49 quetiapine fumarate Allergy Itching, Verified 02/12/20 23:49 [From Seroquel] leg cramps rofecoxib [From Vioxx] Allergy Itching, Verified 02/12/20 23:49 leg cramps terfenadine [From Seldane] Allergy Rash/Hives Verified 02/12/20 23:49 tramadol Allergy Nausea & Verified 02/12/20 23:49 Vomiting/LEG CRAMPS/HEART FLUTTERS calcium carbonate [From DHEA] AdvReac Chest Pain Verified 02/12/20 23:49 calcium phosphate,dibasic AdvReac Chest Pain Verified 02/12/20 23:49 [From DHEA] clindamycin AdvReac muscle Verified 02/12/20 23:49 cramps clonidine AdvReac fast Verified 02/12/20 23:49 heartbeat, migraine dextromethorphan HBr AdvReac face/neck Verified 02/12/20 23:49 [From NyQuil] flushing diazepam [From Valium] AdvReac Nausea & Verified 02/12/20 23:49 Vomiting divalproex sodium AdvReac Nausea & Verified 02/12/20 23:49 [From Depakote] Vomiting doxylamine [From NyQuil] AdvReac face "beet Verified 02/12/20 23:49 red", elevated temp. ibuprofen [From Motrin] AdvReac abdominal Verified 02/12/20 23:49 & muscle cramps indomethacin [From Indocin] AdvReac Abdominal Verified 02/12/20 23:49 Pain,N/V ketorolac tromethamine AdvReac "built up Verified 02/12/20 23:49 [From Toradol] in system", had to be given something to reverse lorazepam [From Ativan] AdvReac Nausea & Verified 02/12/20 23:49 Vomiting metoclopramide HCl AdvReac muscle Verified 02/12/20 23:49 [From Reglan] cramps nortriptyline [From Pamelor] AdvReac Chest Pain Verified 02/12/20 23:49 prasterone (DHEA) [From DHEA] AdvReac Chest Pain Verified 02/12/20 23:49 prochlorperazine AdvReac leg Verified 02/12/20 23:49 [From Compazine] cramping propranolol AdvReac Chest Pain Verified 02/12/20 23:49 pseudoephedrine HCl AdvReac face "beet Verified 02/12/20 23:49 [From NyQuil] red", elevated temp. quetiapine [From Seroquel] AdvReac leg Verified 02/12/20 23:49 cramping sumatriptan [From Imitrex] AdvReac migrane Verified 02/12/20 23:49 sumatriptan succinate AdvReac migrane Verified 02/12/20 23:49 [From Imitrex] topiramate [From Topamax] AdvReac "built up Verified 02/12/20 23:49 in system", had to be given something to reverse trazodone AdvReac "built up Verified 02/12/20 23:49 in system", had to be given something to reverse zolpidem tartrate AdvReac "Became Verified 02/12/20 23:49 [From Ambien] violent with no memory" zonisamide [From Zonegran] AdvReac inability Verified 02/12/20 23:49 to eat artificial sweetener AdvReac SEVERE Uncoded 02/12/20 23:49 MIGRAINE HEADACHE Review of Systems ROS Statement: Those systems with pertinent positive or pertinent negative responses have been documented in the HPI. ROS Other: All systems not noted in ROS Statement are negative. Past Medical History Past Medical History: Hyperlipidemia, Hypertension, Seizure Disorder Additional Past Medical History / Comment(s): Migraines, viral meningitis x3 as a child, 1995, 2000, chronic back pain, nerve blocks 08/2016 and 12/2016. Last seizure 05/26/19, "ABSENT SEIZURES. HX TACHYCARDIA, GB/CIPD, PTSD History of Any Multi-Drug Resistant Organisms: None Reported Past Surgical History: Appendectomy, Section, Cholecystectomy, Hernia Repair, Hysterectomy, Orthopedic Surgery, Tonsillectomy, Tubal Ligation Additional Past Surgical History / Comment(s): Hiatal Hernia, umbilical hernia repair, left rotator cuff repair, bilateral knee scopes, pain clinic procedures- occipital nerve block. abd exploratory sx(endometreosis), 3 abd scopes 1981, 1989, 1991), lumbar puncture. EGD. nerve biopsy, salvalry gland biospy Past Anesthesia/Blood Transfusion Reactions: No Reported Reaction Additional Past Anesthesia/Blood Transfusion Reaction / Comment(s): Claustrophobic Past Psychological History: Anxiety, Bipolar, Panic Disorder, PTSD Smoking Status: Current every day smoker Past Alcohol Use History: None Reported Past Drug Use History: None Reported - Past Family History Mother Family Medical History: Cancer, Dementia, Diabetes Mellitus, GERD/Reflux, Hyperlipidemia, Hypertension, Thyroid Disorder Additional Family Medical History / Comment(s): Quad CABG, cardiac stents, toes ampuated. Father History Unknown: Yes Family Medical History: No Reported History General Exam Limitations: no limitations General appearance: alert, in no apparent distress Head exam: Present: atraumatic, normocephalic, normal inspection Eye exam: Present: normal appearance, PERRL, EOMI. Absent: scleral icterus, conjunctival injection, periorbital swelling ENT exam: Present: normal exam, mucous membranes moist Neck exam: Present: normal inspection, full ROM. Absent: tenderness, meningismus, lymphadenopathy Respiratory exam: Present: normal lung sounds bilaterally. Absent: respiratory distress, wheezes, rales, rhonchi, stridor Cardiovascular Exam: Present: regular rate, normal rhythm, normal heart sounds. Absent: systolic murmur, diastolic murmur, rubs, gallop, clicks GI/Abdominal exam: Present: soft, normal bowel sounds. Absent: distended, tenderness, guarding, rebound, rigid Neurological exam: Present: alert, oriented X3 Course Vital Signs 02/12/20 23:46 Temperature 98.4 F Pulse Rate 100 Respiratory 20 Rate Blood Pressure 168/101 O2 Sat by Pulse 97 Oximetry Medical Decision Making - Medical Decision Making Vitals are stable. Patient is well-appearing. Patient's headache is consistent with previous migraines. Patient has several ALLERGIES. She was treated with Dilaudid which she has tolerated previously. At this time patient is feeling better and can be discharged home to follow up with primary care. Disposition Clinical Impression: Headache Disposition: HOME SELF-CARE Condition: Good Instructions (If sedation given, give patient instructions): Acute Headache (ED) Additional Instructions: Please follow up with primary care in 1-2 days. Return to the emergency room for any worsening symptoms. Is patient prescribed a controlled substance at d/c from ED?: No Referrals: José Reece MD [Primary Care Provider] - 1-2 days Time of Disposition: 01:35
[2020-02-13] MEDS ORDERED: ONDANSETRON 4 MG/2 ML VIAL IVP STA (00:44)
[2020-02-13] MEDS ORDERED: HYDROmorphone 0.5 MG/0.5 ML SYRINGE IVP STA (01:26)
[2020-02-13] MEDS ORDERED: cloNIDine HCL 0.1 MG TAB PO STA (02:15)
[2020-02-13 02:27] VITALS: BP 164/113; PULSE 89; RESP 16; TEMP 98.7
== END 2020-02-13 02:26 | disposition home or self-care (01) ==
LOC: EC 23:43
DX: R51.9 Headache, unspecified (principal); I10 Essential (primary) hypertension; E78.5 Hyperlipidemia, unspecified; G40.909 Epilepsy, unspecified, not intractable, without status epilepticus; G89.29 Other chronic pain; M54.9 Dorsalgia, unspecified; F41.0 Panic disorder [episodic paroxysmal anxiety]; F31.9 Bipolar disorder, unspecified; F43.10 Post-traumatic stress disorder, unspecified; F17.200 Nicotine dependence, unspecified, uncomplicated; Z79.899 Other long term (current) drug therapy; Z88.8 Allergy status to other drugs, medicaments and biological substances; Z88.2 Allergy status to sulfonamides; Z88.6 Allergy status to analgesic agent; Z88.1 Allergy status to other antibiotic agents; Z91.040 Latex allergy status; Z86.69 Personal history of other diseases of the nervous system and sense organs
CPT/HCPCS: 99283; 96374; 96375 ×2; 96376; 96361; J1200; J2405; J1170 ×2

== ENCOUNTER 2020-02-29 16:38 | Emergency (ER) | payer OTHER ==
[2020-02-29 17:14] VITALS: BP 136/105; PULSE 18; RESP 16; TEMP 98
[2020-02-29] MEDS ORDERED: ONDANSETRON 4 MG/2 ML VIAL IM STA (17:14)
[2020-02-29] MEDS ORDERED: MORPHINE SULFATE 4 MG/ML SYRINGE IM STA (17:15)
--- NOTE | 2020-02-29 17:19 | ED ---
General Adult HPI - General Chief complaint: Headache Stated complaint: migraine Time Seen by Provider: 02/29/20 17:02 Source: patient, RN notes reviewed Mode of arrival: ambulatory Limitations: no limitations - History of Present Illness Initial comments: Patient is a pleasant 49-year-old female presenting to the emergency Department with complaints of headache. Patient has chronic headaches and does see a specialist at [facility]. All of the treatments that she is trying to do have been refused by her insurance and patient is frustrated. Patient does have frequent ER visits for the same problem. Patient states this headache feels like her chronic headaches. Onset was several days ago. Headache is on the right-sided. Patient does have some associated nausea and has vomited. Patient has photophobia. - Related Data Home Medications Medication Instructions Recorded Confirmed Atorvastatin [Lipitor] 40 mg PO HS 04/02/17 01/26/20 Lacosamide [Vimpat] 100 mg PO BID 06/04/17 01/26/20 HYDROcodone/APAP 7.5-325MG [[place] 1 tab PO TID PRN 07/06/17 01/26/20 7.5-325] ARIPiprazole [Abilify] 5 mg PO HS 11/07/19 01/26/20 Albuterol Sulfate [Ventolin HFA] 1 - 2 puff INHALATION RT-Q6H PRN 11/07/19 01/26/20 Cyanocobalamin (Vitamin B-12) 1,000 mcg PO DAILY 01/10/20 01/26/20 [Vitamin B-12] Cyclobenzaprine [Flexeril] 5 mg PO DAILY PRN 01/10/20 01/26/20 Thiamine [Vitamin B-1] 100 mg PO DAILY 01/10/20 01/26/20 Allergies Allergy/AdvReac Type Severity Reaction Status Date / Time dihydroergotamine Allergy Unknown Unknown Verified 02/12/20 23:49 [From Migranal] gabapentin [From Neurontin] Allergy Itching/Swe Verified 02/12/20 23:49 lling latex Allergy Anaphylaxis Verified 02/12/20 23:49 naproxen [From Naprosyn] Allergy Anaphylaxis Verified 02/12/20 23:49 Penicillins Allergy Anaphylaxis Verified 02/12/20 23:49 prednisone Allergy Swelling Verified 02/12/20 23:49 quetiapine fumarate Allergy Itching, Verified 02/12/20 23:49 [From Seroquel] leg cramps rofecoxib [From Vioxx] Allergy Itching, Verified 02/12/20 23:49 leg cramps terfenadine [From Seldane] Allergy Rash/Hives Verified 02/12/20 23:49 tramadol Allergy Nausea & Verified 02/12/20 23:49 Vomiting/LEG CRAMPS/HEART FLUTTERS calcium carbonate [From DHEA] AdvReac Chest Pain Verified 02/12/20 23:49 calcium phosphate,dibasic AdvReac Chest Pain Verified 02/12/20 23:49 [From DHEA] clindamycin AdvReac muscle Verified 02/12/20 23:49 cramps clonidine AdvReac fast Verified 02/12/20 23:49 heartbeat, migraine dextromethorphan HBr AdvReac face/neck Verified 02/12/20 23:49 [From NyQuil] flushing diazepam [From Valium] AdvReac Nausea & Verified 02/12/20 23:49 Vomiting divalproex sodium AdvReac Nausea & Verified 02/12/20 23:49 [From Depakote] Vomiting doxylamine [From NyQuil] AdvReac face "beet Verified 02/12/20 23:49 red", elevated temp. ibuprofen [From Motrin] AdvReac abdominal Verified 02/12/20 23:49 & muscle cramps indomethacin [From Indocin] AdvReac Abdominal Verified 02/12/20 23:49 Pain,N/V ketorolac tromethamine AdvReac "built up Verified 02/12/20 23:49 [From Toradol] in system", had to be given something to reverse lorazepam [From Ativan] AdvReac Nausea & Verified 02/12/20 23:49 Vomiting metoclopramide HCl AdvReac muscle Verified 02/12/20 23:49 [From Reglan] cramps nortriptyline [From Pamelor] AdvReac Chest Pain Verified 02/12/20 23:49 prasterone (DHEA) [From DHEA] AdvReac Chest Pain Verified 02/12/20 23:49 prochlorperazine AdvReac leg Verified 02/12/20 23:49 [From Compazine] cramping propranolol AdvReac Chest Pain Verified 02/12/20 23:49 pseudoephedrine HCl AdvReac face "beet Verified 02/12/20 23:49 [From NyQuil] red", elevated temp. quetiapine [From Seroquel] AdvReac leg Verified 02/12/20 23:49 cramping sumatriptan [From Imitrex] AdvReac migrane Verified 02/12/20 23:49 sumatriptan succinate AdvReac migrane Verified 02/12/20 23:49 [From Imitrex] topiramate [From Topamax] AdvReac "built up Verified 02/12/20 23:49 in system", had to be given something to reverse trazodone AdvReac "built up Verified 02/12/20 23:49 in system", had to be given something to reverse zolpidem tartrate AdvReac "Became Verified 02/12/20 23:49 [From Ambien] violent with no memory" zonisamide [From Zonegran] AdvReac inability Verified 02/12/20 23:49 to eat artificial sweetener AdvReac SEVERE Uncoded 02/12/20 23:49 MIGRAINE HEADACHE Review of Systems ROS Statement: Those systems with pertinent positive or pertinent negative responses have been documented in the HPI. ROS Other: All systems not noted in ROS Statement are negative. Constitutional: Denies: fever Eyes: Reports: as per HPI. Denies: eye pain ENT: Denies: ear pain Respiratory: Denies: cough Endocrine: Denies: fatigue Gastrointestinal: Denies: abdominal pain Genitourinary: Denies: dysuria Musculoskeletal: Denies: back pain Skin: Denies: rash Neurological: Reports: as per HPI, headache Past Medical History Past Medical History: Hyperlipidemia, Hypertension, Seizure Disorder Additional Past Medical History / Comment(s): Migraines, viral meningitis x3 as a child, 1995, 2000, chronic back pain, nerve blocks 08/2016 and 12/2016. Last seizure 05/26/19, "ABSENT SEIZURES. HX TACHYCARDIA, GB/CIPD, PTSD History of Any Multi-Drug Resistant Organisms: None Reported Past Surgical History: Appendectomy, Section, Cholecystectomy, Hernia Repair, Hysterectomy, Orthopedic Surgery, Tonsillectomy, Tubal Ligation Additional Past Surgical History / Comment(s): Hiatal Hernia, umbilical hernia repair, left rotator cuff repair, bilateral knee scopes, pain clinic procedures- occipital nerve block. abd exploratory sx(endometreosis), 3 abd scopes 1981, 1989, 1991), lumbar puncture. EGD. nerve biopsy, salvalry gland biospy Past Anesthesia/Blood Transfusion Reactions: No Reported Reaction Additional Past Anesthesia/Blood Transfusion Reaction / Comment(s): Claustrophobic Past Psychological History: Anxiety, Bipolar, Panic Disorder, PTSD Smoking Status: Current every day smoker Past Alcohol Use History: None Reported Past Drug Use History: None Reported - Past Family History Mother Family Medical History: Cancer, Dementia, Diabetes Mellitus, GERD/Reflux, Hyperlipidemia, Hypertension, Thyroid Disorder Additional Family Medical History / Comment(s): Quad CABG, cardiac stents, toes ampuated. Father History Unknown: Yes Family Medical History: No Reported History General Exam Limitations: no limitations General appearance: alert, in no apparent distress Head exam: Present: normocephalic Eye exam: Present: normal appearance, EOMI Neck exam: Present: normal inspection. Absent: meningismus Respiratory exam: Present: normal lung sounds bilaterally Cardiovascular Exam: Present: regular rate, normal rhythm GI/Abdominal exam: Present: soft. Absent: tenderness Extremities exam: Present: normal inspection Neurological exam: Present: alert, CN II-XII intact, other (Patient refuses to attempt to allow examination of her legs secondary to previous reported GBS. No upper extremity weakness.) Psychiatric exam: Present: normal affect, normal mood Skin exam: Present: normal color Course Vital Signs 02/29/20 17:09 Temperature 98 F Pulse Rate 18 L Respiratory 16 Rate Blood Pressure 136/105 O2 Sat by Pulse 96 Oximetry Disposition Clinical Impression: Chronic headache Disposition: HOME SELF-CARE Condition: Stable Instructions (If sedation given, give patient instructions): Acute Headache (ED) Additional Instructions: Please follow-up with your primary care physician and headache specialist in the next day or 2 for recheck. Return for illness, fevers, change or worsening symptoms or other concerns. Is patient prescribed a controlled substance at d/c from ED?: No Referrals: José Reece MD [Primary Care Provider] - 1-2 days Time of Disposition: 17:19
== END 2020-02-29 17:43 | disposition home or self-care (01) ==
LOC: EC 16:38
DX: G43.909 Migraine, unspecified, not intractable, without status migrainosus (principal); E78.5 Hyperlipidemia, unspecified; I10 Essential (primary) hypertension; G40.909 Epilepsy, unspecified, not intractable, without status epilepticus; F41.9 Anxiety disorder, unspecified; F31.9 Bipolar disorder, unspecified; F41.0 Panic disorder [episodic paroxysmal anxiety]; Z86.69 Personal history of other diseases of the nervous system and sense organs; F17.200 Nicotine dependence, unspecified, uncomplicated; Z79.899 Other long term (current) drug therapy; Z88.0 Allergy status to penicillin; Z88.1 Allergy status to other antibiotic agents; Z88.6 Allergy status to analgesic agent; Z88.8 Allergy status to other drugs, medicaments and biological substances; Z88.2 Allergy status to sulfonamides; Z91.02 Food additives allergy status; Z91.040 Latex allergy status; Z90.49 Acquired absence of other specified parts of digestive tract; Z90.710 Acquired absence of both cervix and uterus
CPT/HCPCS: 99283; 96372 ×2; J2270; J2405

== ENCOUNTER 2020-03-12 19:34 | Emergency (ER) | payer OTHER ==
[2020-03-12 19:41] VITALS: TEMP 98.8
[2020-03-12] MEDS ORDERED: HYDROmorphone 0.5 MG/0.5 ML SYRINGE IVP STA ×2 (19:45→20:54)
[2020-03-12] MEDS ORDERED: ONDANSETRON 4 MG/2 ML VIAL IVP STA (19:45)
[2020-03-12] MEDS ORDERED: SODIUM CHLORIDE 0.9% 1,000 ML IV STA (19:51)
--- NOTE | 2020-03-12 19:51 | ED ---
General Adult HPI - General Chief complaint: Headache Stated complaint: Head pain Time Seen by Provider: 03/12/20 19:41 Source: patient, family, RN notes reviewed Mode of arrival: wheelchair Limitations: no limitations - History of Present Illness Initial comments: 50-year-old female well known to this emergency room presents for headache. Patient states she has had a headache on and off for about 20 days. States it comes and goes. Patient reports this feels similar to previous migraine headaches. Patient does follow at [facility]. Patient states she was unable to report this headache at home which is not unusual.Patient has no other complaints at this time including shortness of breath, chest pain, abdominal pain, nausea or vomiting, or visual changes. - Related Data Home Medications Medication Instructions Recorded Confirmed Atorvastatin [Lipitor] 40 mg PO HS 04/02/17 01/26/20 Lacosamide [Vimpat] 100 mg PO BID 06/04/17 01/26/20 HYDROcodone/APAP 7.5-325MG [[place] 1 tab PO TID PRN 07/06/17 01/26/20 7.5-325] ARIPiprazole [Abilify] 5 mg PO HS 11/07/19 01/26/20 Albuterol Sulfate [Ventolin HFA] 1 - 2 puff INHALATION RT-Q6H PRN 11/07/19 01/26/20 Cyanocobalamin (Vitamin B-12) 1,000 mcg PO DAILY 01/10/20 01/26/20 [Vitamin B-12] Cyclobenzaprine [Flexeril] 5 mg PO DAILY PRN 01/10/20 01/26/20 Thiamine [Vitamin B-1] 100 mg PO DAILY 01/10/20 01/26/20 Allergies Allergy/AdvReac Type Severity Reaction Status Date / Time dihydroergotamine Allergy Unknown Unknown Verified 03/12/20 19:40 [From Migranal] gabapentin [From Neurontin] Allergy Itching/Swe Verified 03/12/20 19:40 lling latex Allergy Anaphylaxis Verified 03/12/20 19:40 naproxen [From Naprosyn] Allergy Anaphylaxis Verified 03/12/20 19:40 Penicillins Allergy Anaphylaxis Verified 03/12/20 19:40 prednisone Allergy Swelling Verified 03/12/20 19:40 quetiapine fumarate Allergy Itching, Verified 03/12/20 19:40 [From Seroquel] leg cramps rofecoxib [From Vioxx] Allergy Itching, Verified 03/12/20 19:40 leg cramps terfenadine [From Seldane] Allergy Rash/Hives Verified 03/12/20 19:40 tramadol Allergy Nausea & Verified 03/12/20 19:40 Vomiting/LEG CRAMPS/HEART FLUTTERS calcium carbonate [From DHEA] AdvReac Chest Pain Verified 03/12/20 19:40 calcium phosphate,dibasic AdvReac Chest Pain Verified 03/12/20 19:40 [From DHEA] clindamycin AdvReac muscle Verified 03/12/20 19:40 cramps clonidine AdvReac fast Verified 03/12/20 19:40 heartbeat, migraine dextromethorphan HBr AdvReac face/neck Verified 03/12/20 19:40 [From NyQuil] flushing diazepam [From Valium] AdvReac Nausea & Verified 03/12/20 19:40 Vomiting divalproex sodium AdvReac Nausea & Verified 03/12/20 19:40 [From Depakote] Vomiting doxylamine [From NyQuil] AdvReac face "beet Verified 03/12/20 19:40 red", elevated temp. ibuprofen [From Motrin] AdvReac abdominal Verified 03/12/20 19:40 & muscle cramps indomethacin [From Indocin] AdvReac Abdominal Verified 03/12/20 19:40 Pain,N/V ketorolac tromethamine AdvReac "built up Verified 03/12/20 19:40 [From Toradol] in system", had to be given something to reverse lorazepam [From Ativan] AdvReac Nausea & Verified 03/12/20 19:40 Vomiting metoclopramide HCl AdvReac muscle Verified 03/12/20 19:40 [From Reglan] cramps nortriptyline [From Pamelor] AdvReac Chest Pain Verified 03/12/20 19:40 prasterone (DHEA) [From DHEA] AdvReac Chest Pain Verified 03/12/20 19:40 prochlorperazine AdvReac leg Verified 03/12/20 19:40 [From Compazine] cramping propranolol AdvReac Chest Pain Verified 12/06/20 19:40 pseudoephedrine HCl AdvReac face "beet Verified 03/12/20 19:40 [From NyQuil] red", elevated temp. quetiapine [From Seroquel] AdvReac leg Verified 03/12/20 19:40 cramping sumatriptan [From Imitrex] AdvReac migrane Verified 03/12/20 19:40 sumatriptan succinate AdvReac migrane Verified 03/12/20 19:40 [From Imitrex] topiramate [From Topamax] AdvReac "built up Verified 03/12/20 19:40 in system", had to be given something to reverse trazodone AdvReac "built up Verified 03/12/20 19:40 in system", had to be given something to reverse zolpidem tartrate AdvReac "Became Verified 03/12/20 19:40 [From Ambien] violent with no memory" zonisamide [From Zonegran] AdvReac inability Verified 03/12/20 19:40 to eat artificial sweetener AdvReac SEVERE Uncoded 03/12/20 19:40 MIGRAINE HEADACHE Review of Systems ROS Statement: Those systems with pertinent positive or pertinent negative responses have been documented in the HPI. ROS Other: All systems not noted in ROS Statement are negative. Past Medical History Past Medical History: Hyperlipidemia, Hypertension, Seizure Disorder Additional Past Medical History / Comment(s): Migraines, viral meningitis x3 as a child, 1995, 2000, chronic back pain, nerve blocks 08/2016 and 12/2016. Last seizure 05/26/19, "ABSENT SEIZURES. HX TACHYCARDIA, GB/CIPD, PTSD History of Any Multi-Drug Resistant Organisms: None Reported Past Surgical History: Appendectomy, Section, Cholecystectomy, Hernia Repair, Hysterectomy, Orthopedic Surgery, Tonsillectomy, Tubal Ligation Additional Past Surgical History / Comment(s): Hiatal Hernia, umbilical hernia repair, left rotator cuff repair, bilateral knee scopes, pain clinic procedures- occipital nerve block. abd exploratory sx(endometreosis), 3 abd scopes 1981, 1989, 1991), lumbar puncture. EGD. nerve biopsy, salvalry gland biospy Past Anesthesia/Blood Transfusion Reactions: No Reported Reaction Additional Past Anesthesia/Blood Transfusion Reaction / Comment(s): Claustrophobic Past Psychological History: Anxiety, Bipolar, Panic Disorder, PTSD Smoking Status: Current every day smoker Past Alcohol Use History: None Reported Past Drug Use History: None Reported - Past Family History Mother Family Medical History: Cancer, Dementia, Diabetes Mellitus, GERD/Reflux, Hyperlipidemia, Hypertension, Thyroid Disorder Additional Family Medical History / Comment(s): Quad CABG, cardiac stents, toes ampuated. Father History Unknown: Yes Family Medical History: No Reported History General Exam Limitations: no limitations General appearance: alert, in no apparent distress Head exam: Present: atraumatic, normocephalic, normal inspection Eye exam: Present: normal appearance, PERRL, EOMI. Absent: scleral icterus, conjunctival injection ENT exam: Present: normal exam, mucous membranes moist Neck exam: Present: normal inspection, full ROM. Absent: tenderness, meningismus, lymphadenopathy Respiratory exam: Present: normal lung sounds bilaterally. Absent: respiratory distress, wheezes, rales, rhonchi, stridor Cardiovascular Exam: Present: regular rate, normal rhythm, normal heart sounds. Absent: systolic murmur, diastolic murmur, rubs, gallop, clicks GI/Abdominal exam: Present: soft, normal bowel sounds. Absent: distended, tenderness, guarding, rebound, rigid Neurological exam: Present: alert, oriented X3, normal gait, other (GCS 15) Course Vital Signs 03/12/20 19:37 Temperature 98.8 F Pulse Rate 125 H Respiratory 18 Rate Blood Pressure 136/85 O2 Sat by Pulse 98 Oximetry Medical Decision Making - Medical Decision Making Vitals are stable. Patient is tachycardic which is likely secondary to pain. Patient does have a headache which is consistent with all previous headaches. No thunderclap onset. This is not the worst headache of her life. Patient was given pain medications which did help however she does still have some pain. She will be given one more dose and discharged home. She will return here for any worsening symptoms. Disposition Clinical Impression: Headache, Chronic pain Disposition: HOME SELF-CARE Condition: Good Instructions (If sedation given, give patient instructions): Acute Headache (ED) Additional Instructions: Please follow-up with your doctor in one to 2 days. Return to the emergency room for any worsening symptoms. Is patient prescribed a controlled substance at d/c from ED?: No Referrals: José Reece MD [Primary Care Provider] - 1-2 days Time of Disposition: 20:55
[2020-03-12] MEDS ORDERED: diphenhydrAMINE 50 MG/ML 1 ML VIAL IVP STA (21:12)
[2020-03-12] MEDS ORDERED: FAMOTIDINE 20 MG/2 ML VIAL IV STA (21:12)
[2020-03-12 21:25] VITALS: BP 133/80; PULSE 100; RESP 16
== END 2020-03-12 21:58 | disposition home or self-care (01) ==
LOC: EC 19:34
DX: G89.29 Other chronic pain (principal); R51.9 Headache, unspecified; R00.0 Tachycardia, unspecified; E78.5 Hyperlipidemia, unspecified; I10 Essential (primary) hypertension; G40.909 Epilepsy, unspecified, not intractable, without status epilepticus; M54.9 Dorsalgia, unspecified; F41.0 Panic disorder [episodic paroxysmal anxiety]; F31.9 Bipolar disorder, unspecified; F43.10 Post-traumatic stress disorder, unspecified; F17.200 Nicotine dependence, unspecified, uncomplicated; Z79.899 Other long term (current) drug therapy; Z88.8 Allergy status to other drugs, medicaments and biological substances; Z88.6 Allergy status to analgesic agent; Z88.5 Allergy status to narcotic agent; Z91.040 Latex allergy status; Z88.0 Allergy status to penicillin; Z86.69 Personal history of other diseases of the nervous system and sense organs; Z98.890 Other specified postprocedural states
CPT/HCPCS: 99283; 96374; 96375 ×3; 96376; 96361; J1200; J2405; J1170

== ENCOUNTER 2020-04-05 19:36 | Emergency (ER) | payer OTHER ==
[2020-04-05 19:44] VITALS: TEMP 98.7
[2020-04-05] MEDS ORDERED: ONDANSETRON 4 MG/2 ML VIAL IVP STA (20:22)
[2020-04-05] MEDS ORDERED: diphenhydrAMINE 50 MG/ML 1 ML VIAL IVP STA (20:22)
[2020-04-05] MEDS ORDERED: SODIUM CHLORIDE 0.9% 1,000 ML IV ONE (20:22)
[2020-04-05] MEDS ORDERED: HYDROmorphone 1 MG/ML 1 ML SYRINGE IVP STA ×2 (20:22→22:03)
--- NOTE | 2020-04-05 22:04 | ED ---
Headache HPI - General Chief Complaint: Headache Stated Complaint: Headache Time Seen by Provider: 04/05/20 20:07 Mode of arrival: wheelchair Limitations: no limitations - History of Present Illness Initial Comments: 50-year-old female patient with past medical history significant for frequent migraine headaches presents to the emergency department today for evaluation of migraine headache. States the pain is present for the last 3-7 days. States she does have associated light sensitivity and vomiting. Denies any sensitivity to sound. States her headache is consistent with her usual migraine pattern. Denies any new symptoms. Denies being the worst headache of her life. She states she did try to take her home migraine medications without relief. Patient denies any recent rash, fever, chills, cough, shortness of breath, chest pain, abdominal pain, diarrhea, constipation, back pain, numbness, tingling, dizziness, weakness, hematuria, dysuria, urinary urgency, urinary frequency, or any other complaints. - Related Data Home Medications Medication Instructions Recorded Confirmed Atorvastatin [Lipitor] 40 mg PO HS 04/02/17 01/26/20 Lacosamide [Vimpat] 100 mg PO BID 06/04/17 01/26/20 HYDROcodone/APAP 7.5-325MG [[place] 1 tab PO TID PRN 07/06/17 01/26/20 7.5-325] ARIPiprazole [Abilify] 5 mg PO HS 11/07/19 01/26/20 Albuterol Sulfate [Ventolin HFA] 1 - 2 puff INHALATION RT-Q6H PRN 11/07/19 01/26/20 Cyanocobalamin (Vitamin B-12) 1,000 mcg PO DAILY 01/10/20 01/26/20 [Vitamin B-12] Cyclobenzaprine [Flexeril] 5 mg PO DAILY PRN 01/10/20 01/26/20 Thiamine [Vitamin B-1] 100 mg PO DAILY 01/10/20 01/26/20 Allergies Allergy/AdvReac Type Severity Reaction Status Date / Time dihydroergotamine Allergy Unknown Unknown Verified 04/05/20 19:43 [From Migranal] gabapentin [From Neurontin] Allergy Itching/Swe Verified 04/05/20 19:43 lling latex Allergy Anaphylaxis Verified 04/05/20 19:43 naproxen [From Naprosyn] Allergy Anaphylaxis Verified 04/05/20 19:43 Penicillins Allergy Anaphylaxis Verified 04/05/20 19:43 prednisone Allergy Swelling Verified 04/05/20 19:43 quetiapine fumarate Allergy Itching, Verified 04/05/20 19:43 [From Seroquel] leg cramps rofecoxib [From Vioxx] Allergy Itching, Verified 04/05/20 19:43 leg cramps terfenadine [From Seldane] Allergy Rash/Hives Verified 04/05/20 19:43 tramadol Allergy Nausea & Verified 04/05/20 19:43 Vomiting/LEG CRAMPS/HEART FLUTTERS calcium carbonate [From DHEA] AdvReac Chest Pain Verified 04/05/20 19:43 calcium phosphate,dibasic AdvReac Chest Pain Verified 04/05/20 19:43 [From DHEA] clindamycin AdvReac muscle Verified 04/05/20 19:43 cramps clonidine AdvReac fast Verified 04/05/20 19:43 heartbeat, migraine dextromethorphan HBr AdvReac face/neck Verified 04/05/20 19:43 [From NyQuil] flushing diazepam [From Valium] AdvReac Nausea & Verified 04/05/20 19:43 Vomiting divalproex sodium AdvReac Nausea & Verified 04/05/20 19:43 [From Depakote] Vomiting doxylamine [From NyQuil] AdvReac face "beet Verified 04/05/20 19:43 red", elevated temp. ibuprofen [From Motrin] AdvReac abdominal Verified 04/05/20 19:43 & muscle cramps indomethacin [From Indocin] AdvReac Abdominal Verified 04/05/20 19:43 Pain,N/V ketorolac tromethamine AdvReac "built up Verified 04/05/20 19:43 [From Toradol] in system", had to be given something to reverse lorazepam [From Ativan] AdvReac Nausea & Verified 04/05/20 19:43 Vomiting metoclopramide HCl AdvReac muscle Verified 04/05/20 19:43 [From Reglan] cramps nortriptyline [From Pamelor] AdvReac Chest Pain Verified 04/05/20 19:43 prasterone (DHEA) [From DHEA] AdvReac Chest Pain Verified 04/05/20 19:43 prochlorperazine AdvReac leg Verified 04/05/20 19:43 [From Compazine] cramping propranolol AdvReac Chest Pain Verified 04/05/20 19:43 pseudoephedrine HCl AdvReac face "beet Verified 04/05/20 19:43 [From NyQuil] red", elevated temp. quetiapine [From Seroquel] AdvReac leg Verified 04/05/20 19:43 cramping sumatriptan [From Imitrex] AdvReac migrane Verified 04/05/20 19:43 sumatriptan succinate AdvReac migrane Verified 04/05/20 19:43 [From Imitrex] topiramate [From Topamax] AdvReac "built up Verified 04/05/20 19:43 in system", had to be given something to reverse trazodone AdvReac "built up Verified 04/05/20 19:43 in system", had to be given something to reverse zolpidem tartrate AdvReac "Became Verified 04/05/20 19:43 [From Ambien] violent with no memory" zonisamide [From Zonegran] AdvReac inability Verified 04/05/20 19:43 to eat artificial sweetener AdvReac SEVERE Uncoded 04/05/20 19:43 MIGRAINE HEADACHE Review of Systems ROS Statement: Those systems with pertinent positive or pertinent negative responses have been documented in the HPI. ROS Other: All systems not noted in ROS Statement are negative. Past Medical History Past Medical History: Hyperlipidemia, Hypertension, Seizure Disorder Additional Past Medical History / Comment(s): Migraines, viral meningitis x3 as a child, 1995, 2000, chronic back pain, nerve blocks 08/2016 and 12/2016. Last seizure 05/26/19, "ABSENT SEIZURES. HX TACHYCARDIA, GB/CIPD, PTSD History of Any Multi-Drug Resistant Organisms: None Reported Past Surgical History: Appendectomy, Section, Cholecystectomy, Hernia Repair, Hysterectomy, Orthopedic Surgery, Tonsillectomy, Tubal Ligation Additional Past Surgical History / Comment(s): Hiatal Hernia, umbilical hernia repair, left rotator cuff repair, bilateral knee scopes, pain clinic procedures- occipital nerve block. abd exploratory sx(endometreosis), 3 abd scopes 1991), lumbar puncture. EGD. nerve biopsy, salvalry gland biospy Past Anesthesia/Blood Transfusion Reactions: No Reported Reaction Additional Past Anesthesia/Blood Transfusion Reaction / Comment(s): Claustrophobic Past Psychological History: Anxiety, Bipolar, Panic Disorder, PTSD Smoking Status: Current every day smoker Past Alcohol Use History: None Reported Past Drug Use History: None Reported - Past Family History Mother Family Medical History: Cancer, Dementia, Diabetes Mellitus, GERD/Reflux, Hyperlipidemia, Hypertension, Thyroid Disorder Additional Family Medical History / Comment(s): Quad CABG, cardiac stents, toes ampuated. Father History Unknown: Yes Family Medical History: No Reported History General Exam Limitations: no limitations General appearance: alert, in no apparent distress, other (This is a well- developed, well-nourished adult female patient in no acute distress. Vital signs upon presentation are temperature 98.7F, pulse 101, respirations 18, blood pressure 142/96, pulse ox 99% on room air.) Neck exam: Present: normal inspection. Absent: tenderness, meningismus, lymphadenopathy Respiratory exam: Present: normal lung sounds bilaterally. Absent: respiratory distress, wheezes, rales, rhonchi, stridor Cardiovascular Exam: Present: regular rate, normal rhythm, normal heart sounds. Absent: systolic murmur, diastolic murmur, rubs, gallop, clicks GI/Abdominal exam: Present: soft, normal bowel sounds. Absent: distended, tenderness, guarding, rebound, rigid Neurological exam: Present: alert, oriented X3, CN II-XII intact Expanded Speech: Present: fluid speech Cranial nerves: EOM's Intact: Normal, Nystagmus: Normal Motor strength exam: RUE: 4, LUE: 4, RLE: 4, LLE: 4 Psychiatric exam: Present: normal affect, normal mood Skin exam: Present: warm, dry, intact, normal color. Absent: rash Course Vital Signs 04/05/20 04/05/20 19:42 20:43 Temperature 98.7 F Pulse Rate 101 H 78 Respiratory 18 18 Rate Blood Pressure 142/96 148/105 O2 Sat by Pulse 99 98 Oximetry Medical Decision Making - Medical Decision Making 50-year-old female patient with past medical history significant for migraines presents to the emergency department today for evaluation of migraine headache for the last 4-7 days. Physical examination is unremarkable. She is neurologically intact with no focal deficits. Denies any new symptoms with her usual migraine pattern. Denies this being the worse headache of her life. She was given IV fluids and pain medications. Upon reevaluation she does report slight improvement. We'll give an additional dose of pain medication should be discharged home to follow-up with her primary care physician neurologist for further evaluation as soon as possible. Return parameters were discussed in detail. She verbalizes understanding and agrees with this plan. Disposition Clinical Impression: Migraine headache Disposition: HOME SELF-CARE Condition: Good Instructions (If sedation given, give patient instructions): Migraine Headache (ED) Additional Instructions: Rest. Follow up with her primary care physician for recheck in 1-2 days. Return to the emergency department for any new, worsening, or concerning symptoms. Is patient prescribed a controlled substance at d/c from ED?: No Referrals: José Reece MD [Primary Care Provider] - 1-2 days Time of Disposition: 22:04
[2020-04-05 22:21] VITALS: BP 137/109; PULSE 99; RESP 16
== END 2020-04-05 22:25 | disposition home or self-care (01) ==
LOC: EC 19:36
DX: G43.909 Migraine, unspecified, not intractable, without status migrainosus (principal); E78.5 Hyperlipidemia, unspecified; G89.29 Other chronic pain; M54.9 Dorsalgia, unspecified; G40.909 Epilepsy, unspecified, not intractable, without status epilepticus; F43.10 Post-traumatic stress disorder, unspecified; F31.9 Bipolar disorder, unspecified; F17.200 Nicotine dependence, unspecified, uncomplicated; Z79.899 Other long term (current) drug therapy; Z88.0 Allergy status to penicillin; Z88.8 Allergy status to other drugs, medicaments and biological substances; Z91.040 Latex allergy status; Z88.5 Allergy status to narcotic agent; Z88.6 Allergy status to analgesic agent; Z88.1 Allergy status to other antibiotic agents; Z91.02 Food additives allergy status
CPT/HCPCS: 99283; 96374; 96375 ×2; 96376; 96361; J1200; J2405; J1170

== ENCOUNTER → 2020-04-10 | Outpatient (CLI) | payer OTHER ==
--- NOTE | 2020-04-11 09:31 | MM ---
Reason for exam: additional evaluation requested from prior study. Last mammogram was performed 5 years and 1 month ago. History: Patient is postmenopausal. Family history of breast cancer in mother at age 50 and breast cancer in maternal grandmother. Physical Findings: Nurse did not find any significant physical abnormalities on exam. MG Diagnostic Mammo w CAD TOSHA Bilateral CC and MLO view(s) were taken. Prior study comparison: February 28, 2015, bilateral MG screening mammo w CAD. There are scattered fibroglandular densities. No significant new findings when compared with previous films. These results were verbally communicated with the patient and result sheet given to the patient on 04/10/20. ASSESSMENT: Negative, BI-RAD 1 RECOMMENDATION: Routine screening mammogram of both breasts in 1 year. Manage on a clinical basis with regard to left breast pain and benign green nipple discharge on the left.
== END | disposition home or self-care (01) ==
LOC: RADMAMWWP 14:40
PROVIDERS: ATTEND Family Medicine
DX: N64.4 Mastodynia (principal)
CPT/HCPCS: 77066

== ENCOUNTER 2020-04-23 19:10 | Emergency (ER) | payer OTHER ==
[2020-04-23 19:17] VITALS: BP 138/94; TEMP 98.4
[2020-04-23] MEDS ORDERED: SODIUM CHLORIDE 0.9% 500 ML 500 ML IV STA (19:56)
[2020-04-23] MEDS ORDERED: ONDANSETRON 4 MG/2 ML VIAL IVP STA (19:56)
[2020-04-23] MEDS ORDERED: HYDROmorphone 1 MG/ML 1 ML SYRINGE IVP STA ×2 (19:56→20:56)
[2020-04-23] MEDS ORDERED: diphenhydrAMINE 50 MG/ML 1 ML VIAL IVP STA (19:56)
--- NOTE | 2020-04-23 20:01 | ED ---
Headache HPI - General Chief Complaint: Headache Stated Complaint: Migrane Time Seen by Provider: 04/23/20 19:20 Mode of arrival: wheelchair Limitations: no limitations - History of Present Illness Initial Comments: This patient is a 50-year-old woman with long-standing history of migraine headaches. She states that she is having recurrence of her usual migraine symptoms. She states that the symptoms are typical of her migraine headaches. It is not the worst headache of life. She is not having any neurologic symptoms. She is not having fever or chills, neck symptoms or stiffness. MD Complaint: headache -: hour(s) Onset Description: gradual Location: frontal, temporal Severity: severe Quality: aching Consistency: constant Improves With: nothing Worsens With: light, noise Context: occurred at rest Associated Symptoms: photophobia, sensitivity to sound - Related Data Home Medications Medication Instructions Recorded Confirmed Atorvastatin [Lipitor] 40 mg PO HS 04/02/17 01/26/20 Lacosamide [Vimpat] 100 mg PO BID 06/04/17 01/26/20 HYDROcodone/APAP 7.5-325MG [[place] 1 tab PO TID PRN 07/06/17 01/26/20 7.5-325] ARIPiprazole [Abilify] 5 mg PO HS 11/07/19 01/26/20 Albuterol Sulfate [Ventolin HFA] 1 - 2 puff INHALATION RT-Q6H PRN 11/07/1901/25 Cyanocobalamin (Vitamin B-12) 1,000 mcg PO DAILY 01/10/20 01/26/20 [Vitamin B-12] Cyclobenzaprine [Flexeril] 5 mg PO DAILY PRN 01/10/20 01/26/20 Thiamine [Vitamin B-1] 100 mg PO DAILY 01/10/20 01/26/20 Allergies Allergy/AdvReac Type Severity Reaction Status Date / Time dihydroergotamine Allergy Unknown Unknown Verified 04/23/20 19:17 [From Migranal] gabapentin [From Neurontin] Allergy Itching/Swe Verified 04/23/20 19:17 lling latex Allergy Anaphylaxis Verified 04/23/20 19:17 naproxen [From Naprosyn] Allergy Anaphylaxis Verified 04/23/20 19:17 Penicillins Allergy Anaphylaxis Verified 04/23/20 19:17 prednisone Allergy Swelling Verified 04/23/20 19:17 quetiapine fumarate Allergy Itching, Verified 04/23/20 19:17 [From Seroquel] leg cramps rofecoxib [From Vioxx] Allergy Itching, Verified 04/23/20 19:17 leg cramps terfenadine [From Seldane] Allergy Rash/Hives Verified 04/23/20 19:17 tramadol Allergy Nausea & Verified 04/23/20 19:17 Vomiting/LEG CRAMPS/HEART FLUTTERS calcium carbonate [From DHEA] AdvReac Chest Pain Verified 04/23/20 19:17 calcium phosphate,dibasic AdvReac Chest Pain Verified 04/23/20 19:17 [From DHEA] clindamycin AdvReac muscle Verified 04/23/20 19:17 cramps clonidine AdvReac fast Verified 04/23/20 19:17 heartbeat, migraine dextromethorphan HBr AdvReac face/neck Verified 04/23/20 19:17 [From NyQuil] flushing diazepam [From Valium] AdvReac Nausea & Verified 04/23/20 19:17 Vomiting divalproex sodium AdvReac Nausea & Verified 04/23/20 19:17 [From Depakote] Vomiting doxylamine [From NyQuil] AdvReac face "beet Verified 04/23/20 19:17 red", elevated temp. ibuprofen [From Motrin] AdvReac abdominal Verified 04/23/20 19:17 & muscle cramps indomethacin [From Indocin] AdvReac Abdominal Verified 04/23/20 19:17 Pain,N/V ketorolac tromethamine AdvReac "built up Verified 04/23/20 19:17 [From Toradol] in system", had to be given something to reverse lorazepam [From Ativan] AdvReac Nausea & Verified 04/23/20 19:17 Vomiting metoclopramide HCl AdvReac muscle Verified 04/23/20 19:17 [From Reglan] cramps nortriptyline [From Pamelor] AdvReac Chest Pain Verified 04/23/20 19:17 prasterone (DHEA) [From DHEA] AdvReac Chest Pain Verified 04/23/20 19:17 prochlorperazine AdvReac leg Verified 04/23/20 19:17 [From Compazine] cramping propranolol AdvReac Chest Pain Verified 04/23/20 19:17 pseudoephedrine HCl AdvReac face "beet Verified 04/23/20 19:17 [From NyQuil] red", elevated temp. quetiapine [From Seroquel] AdvReac leg Verified 04/23/20 19:17 cramping sumatriptan [From Imitrex] AdvReac migrane Verified 04/23/20 19:17 sumatriptan succinate AdvReac migrane Verified 04/23/20 19:17 [From Imitrex] topiramate [From Topamax] AdvReac "built up Verified 04/23/20 19:17 in system", had to be given something to reverse trazodone AdvReac "built up Verified 04/23/20 19:17 in system", had to be given something to reverse zolpidem tartrate AdvReac "Became Verified 04/23/20 19:17 [From Ambien] violent with no memory" zonisamide [From Zonegran] AdvReac inability Verified 04/23/20 19:17 to eat artificial sweetener AdvReac SEVERE Uncoded 04/23/20 19:17 MIGRAINE HEADACHE Review of Systems ROS Statement: Those systems with pertinent positive or pertinent negative responses have been documented in the HPI. ROS Other: All systems not noted in ROS Statement are negative. Constitutional: Denies: fever, chills, weakness Eyes: Denies: eye pain, vision change ENT: Denies: ear pain, hearing loss Respiratory: Denies: cough, dyspnea Cardiovascular: Denies: chest pain, palpitations Gastrointestinal: Denies: abdominal pain, vomiting Musculoskeletal: Denies: back pain Skin: Denies: rash Neurological: Reports: headache. Denies: weakness, numbness, paresthesias, confusion Past Medical History Past Medical History: Hyperlipidemia, Hypertension, Seizure Disorder Additional Past Medical History / Comment(s): Migraines, viral meningitis x3 as a child, 1995, 2000, chronic back pain, nerve blocks 08/2016 and 12/2016. Last seizure 05/26/19, "ABSENT SEIZURES. HX TACHYCARDIA, GB/CIPD, PTSD History of Any Multi-Drug Resistant Organisms: None Reported Past Surgical History: Appendectomy, Section, Cholecystectomy, Hernia Repair, Hysterectomy, Orthopedic Surgery, Tonsillectomy, Tubal Ligation Additional Past Surgical History / Comment(s): Hiatal Hernia, umbilical hernia repair, left rotator cuff repair, bilateral knee scopes, pain clinic procedures- occipital nerve block. abd exploratory sx(endometreosis), 3 abd scopes 1981, 1989, 1991), lumbar puncture. EGD. nerve biopsy, salvalry gland biospy Past Anesthesia/Blood Transfusion Reactions: No Reported Reaction Additional Past Anesthesia/Blood Transfusion Reaction / Comment(s): Cla ustrophobic Past Psychological History: Anxiety, Bipolar, Panic Disorder, PTSD Smoking Status: Current every day smoker Past Alcohol Use History: None Reported Past Drug Use History: None Reported - Past Family History Mother Family Medical History: Cancer, Dementia, Diabetes Mellitus, GERD/Reflux, Hyperlipidemia, Hypertension, Thyroid Disorder Additional Family Medical History / Comment(s): Quad CABG, cardiac stents, toes ampuated. Father History Unknown: Yes Family Medical History: No Reported History General Exam Limitations: no limitations General appearance: alert, in no apparent distress Head exam: Present: atraumatic, normocephalic Eye exam: Present: normal appearance Neck exam: Present: normal inspection, full ROM. Absent: tenderness, meningismus Extremities exam: Present: normal inspection, normal capillary refill. Absent: pedal edema, calf tenderness Neurological exam: Present: alert, oriented X3, CN II-XII intact. Absent: motor sensory deficit Skin exam: Present: warm, dry, intact, normal color. Absent: rash Course Vital Signs 04/23/20 19:13 Temperature 98.4 F Pulse Rate 104 H Respiratory 20 Rate Blood Pressure 138/94 O2 Sat by Pulse 100 Oximetry Disposition Clinical Impression: Headache Disposition: HOME SELF-CARE Condition: Good Instructions (If sedation given, give patient instructions): Acute Headache (ED) Is patient prescribed a controlled substance at d/c from ED?: No Referrals: José Reece MD [Primary Care Provider] - 1-2 days
[2020-04-23 21:08] VITALS: PULSE 100; RESP 18
== END 2020-04-23 21:07 | disposition home or self-care (01) ==
LOC: EC 19:10
DX: G43.909 Migraine, unspecified, not intractable, without status migrainosus (principal); F41.9 Anxiety disorder, unspecified; F31.9 Bipolar disorder, unspecified; F41.0 Panic disorder [episodic paroxysmal anxiety]; E78.5 Hyperlipidemia, unspecified; I10 Essential (primary) hypertension; G40.909 Epilepsy, unspecified, not intractable, without status epilepticus; F17.200 Nicotine dependence, unspecified, uncomplicated; Z79.899 Other long term (current) drug therapy; Z88.6 Allergy status to analgesic agent; Z88.8 Allergy status to other drugs, medicaments and biological substances; Z91.018 Allergy to other foods; Z88.0 Allergy status to penicillin; Z88.1 Allergy status to other antibiotic agents; Z91.040 Latex allergy status; Z90.49 Acquired absence of other specified parts of digestive tract; Z90.710 Acquired absence of both cervix and uterus
CPT/HCPCS: 99283; 96374; 96375 ×2; 96376; 96361; J1200; J2405; J1170

== ENCOUNTER 2020-04-28 16:36 | Emergency (ER) | payer OTHER ==
[2020-04-28] MEDS ORDERED: diphenhydrAMINE 50 MG/ML 1 ML VIAL IVP STA (16:59)
[2020-04-28] MEDS ORDERED: HYDROmorphone 0.5 MG/0.5 ML SYRINGE IVP STA ×2 (16:59→18:36)
[2020-04-28] MEDS ORDERED: SODIUM CHLORIDE 0.9% 1,000 ML IV STA (16:59)
[2020-04-28] MEDS ORDERED: ONDANSETRON 4 MG/2 ML VIAL IVP STA (17:00)
--- NOTE | 2020-04-28 18:05 | ED ---
Headache HPI - General Chief Complaint: Headache Stated Complaint: migraine Time Seen by Provider: 04/28/20 16:45 Mode of arrival: ambulatory Limitations: no limitations - History of Present Illness Initial Comments: Patient is a 50-year-old female with history of migraines, presenting to the emergency department with a headache that started yesterday. Patient is well- known to this ER for this issue. She states she's goes to headache and migraine clinic at [facility], she was just started on a new medication that she takes monthly. She states that this headache started last night, she admits to nausea, sensitivity to light. She denies any falls or trauma. She states this feels like her normal migraines. She denies any blurry vision, no fevers. She denies any neck pain. She has no further complaints. Upon arrival to the ER vitals are stable. - Related Data Home Medications Medication Instructions Recorded Confirmed Atorvastatin [Lipitor] 40 mg PO HS 04/02/17 04/28/20 Lacosamide [Vimpat] 100 mg PO BID 06/04/17 04/28/20 HYDROcodone/APAP 7.5-325MG [[place] 1 tab PO TID PRN 07/06/17 04/28/20 7.5-325] Albuterol Sulfate [Ventolin HFA] 2 puff INHALATION RT-Q6H PRN 11/07/19 04/28/20 Cyclobenzaprine [Flexeril] 5 mg PO DAILY PRN 01/10/20 04/28/20 Divalproex ER [Depakote ER] 500 mg PO HS 04/28/20 04/28/20 Galcanezumab-Gnlm [Emgality] 120 mg SQ Q30D 04/28/20 04/28/20 Pregabalin [Lyrica] 75 mg PO BID 04/28/20 04/28/20 amLODIPine [Norvasc] 5 mg PO DAILY 04/28/20 04/28/20 hydrOXYzine pamoate [Vistaril] 50 mg PO BID PRN 04/28/20 04/28/20 Allergies Allergy/AdvReac Type Severity Reaction Status Date / Time dihydroergotamine Allergy Unknown Unknown Verified 04/28/20 18:01 [From Migranal] gabapentin [From Neurontin] Allergy Itching/Swe Verified 04/28/20 18:01 lling latex Allergy Anaphylaxis Verified 04/28/20 18:01 naproxen [From Naprosyn] Allergy Anaphylaxis Verified 04/28/20 18:01 Penicillins Allergy Anaphylaxis Verified 04/28/20 18:01 prednisone Allergy Swelling Verified 04/28/20 18:01 quetiapine fumarate Allergy Itching, Verified 04/28/20 18:01 [From Seroquel] leg cramps rofecoxib [From Vioxx] Allergy Itching, Verified 04/28/20 18:01 leg cramps terfenadine [From Seldane] Allergy Rash/Hives Verified 04/28/20 18:01 tramadol Allergy Nausea & Verified 04/28/20 18:01 Vomiting/LEG CRAMPS/HEART FLUTTERS calcium carbonate [From DHEA] AdvReac Chest Pain Verified 04/28/20 18:01 calcium phosphate,dibasic AdvReac Chest Pain Verified 04/28/20 18:01 [From DHEA] clindamycin AdvReac muscle Verified 04/28/20 18:01 cramps clonidine AdvReac fast Verified 04/28/20 18:01 heartbeat, migraine dextromethorphan HBr AdvReac face/neck Verified 04/28/20 18:01 [From NyQuil] flushing diazepam [From Valium] AdvReac Nausea & Verified 04/28/20 18:01 Vomiting divalproex sodium AdvReac Nausea & Verified 04/28/20 18:01 [From Depakote] Vomiting doxylamine [From NyQuil] AdvReac face "beet Verified 04/28/20 18:01 red", elevated temp. ibuprofen [From Motrin] AdvReac abdominal Verified 04/28/20 18:01 & muscle cramps indomethacin [From Indocin] AdvReac Abdominal Verified 04/28/20 18:01 Pain,N/V ketorolac tromethamine AdvReac "built up Verified 04/28/20 18:01 [From Toradol] in system", had to be given something to reverse lorazepam [From Ativan] AdvReac Nausea & Verified 04/28/20 18:01 Vomiting metoclopramide HCl AdvReac muscle Verified 04/28/20 18:01 [From Reglan] cramps nortriptyline [From Pamelor] AdvReac Chest Pain Verified 04/28/20 18:01 prasterone (DHEA) [From DHEA] AdvReac Chest Pain Verified 04/28/20 18:01 prochlorperazine AdvReac leg Verified 04/28/20 18:01 [From Compazine] cramping propranolol AdvReac Chest Pain Verified 04/28/20 18:01 pseudoephedrine HCl AdvReac face "beet Verified 04/28/20 18:01 [From NyQuil] red", elevated temp. quetiapine [From Seroquel] AdvReac leg Verified 04/28/20 18:01 cramping sumatriptan [From Imitrex] AdvReac migrane Verified 04/28/20 18:01 sumatriptan succinate AdvReac migrane Verified 04/28/20 18:01 [From Imitrex] topiramate [From Topamax] AdvReac "built up Verified 04/28/20 18:01 in system", had to be given something to reverse trazodone AdvReac "built up Verified 04/28/20 18:01 in system", had to be given something to reverse zolpidem tartrate AdvReac "Became Verified 04/28/20 18:01 [From Ambien] violent with no memory" zonisamide [From Zonegran] AdvReac inability Verified 04/28/20 18:01 to eat artificial sweetener AdvReac SEVERE Uncoded 04/28/20 16:41 MIGRAINE HEADACHE Review of Systems ROS Statement: Those systems with pertinent positive or pertinent negative responses have been documented in the HPI. ROS Other: All systems not noted in ROS Statement are negative. Past Medical History Past Medical History: Hyperlipidemia, Hypertension, Seizure Disorder Additional Past Medical History / Comment(s): Migraines, viral meningitis x3 as a child, 1995, 2000, chronic back pain, nerve blocks 08/2016 and 12/2016. Last seizure 05/26/19, "ABSENT SEIZURES. HX TACHYCARDIA, GB/CIPD, PTSD History of Any Multi-Drug Resistant Organisms: None Reported Past Surgical History: Appendectomy, Section, Cholecystectomy, Hernia Repair, Hysterectomy, Orthopedic Surgery, Tonsillectomy, Tubal Ligation Additional Past Surgical History / Comment(s): Hiatal Hernia, umbilical hernia repair, left rotator cuff repair, bilateral knee scopes, pain clinic procedures- occipital nerve block. abd exploratory sx(endometreosis), 3 abd scopes 1981, 1989, 1991), lumbar puncture. EGD. nerve biopsy, salvalry gland biospy Past Anesthesia/Blood Transfusion Reactions: No Reported Reaction Additional Past Anesthesia/Blood Transfusion Reaction / Comment(s): Claustrophobic Past Psychological History: Anxiety, Bipolar, Panic Disorder, PTSD Smoking Status: Current every day smoker Past Alcohol Use History: None Reported Past Drug Use History: None Reported - Past Family History Mother Family Medical History: Cancer, Dementia, Diabetes Mellitus, GERD/Reflux, Hyperlipidemia, Hypertension, Thyroid Disorder Additional Family Medical History / Comment(s): Quad CABG, cardiac stents, toes ampuated. Father History Unknown: Yes Family Medical History: No Reported History General Exam - General Exam Comments Initial Comments: GENERAL: Patient is well-developed and well-nourished. Patient is nontoxic and in mild distress. HEAD: Atraumatic, normocephalic. EYES: Pupils equal round and reactive to light, extraocular movements intact, sclera anicteric, conjunctiva are normal. Eyelids were unremarkable. ENT: TMs normal, nares patent, oropharynx clear without exudates. Moist mucous membranes. NECK: Normal range of motion, supple without lymphadenopathy or JVD. LUNGS: Unlabored respirations. Breath sounds clear to auscultation bilaterally and equal. No wheezes rales or rhonchi. HEART: Regular rate and rhythm without murmurs, rubs or gallops. ABDOMEN: Soft, nontender, normoactive bowel sounds. No guarding, no rebound. No masses appreciated. : Deferred MUSCULOSKELETAL: Normal extremities with adequate strength and normal range of motion, no pitting or edema. No clubbing or cyanosis. NEUROLOGICAL: Patient is alert and oriented x 3. Motor and sensory are also intact. Cranial nerves II through XII grossly intact. Symmetrical smile. Normal speech, normal gait. PSYCH: Normal mood, normal affect. SKIN: Warm, Dry, normal turgor, no rashes or lesions noted. Limitations: no limitations Course Vital Signs 04/28/20 16:38 Temperature 98.9 F Pulse Rate 100 Respiratory 18 Rate Blood Pressure 148/92 O2 Sat by Pulse 100 Oximetry Medical Decision Making - Medical Decision Making Patient is a 50-year-old female here for a headache that started yesterday. She is well-known to this ER for her migraines. She states she does go to [facility] clinic for headaches and migraines. She was just recently started on a new medication that she takes monthly, Emgality. Her vitals are stable, her exam is unremarkable, no acute neuro symptoms. She was given fluids, pain control, she does report improvement of symptoms. I discussed with patient that she needs to follow up with her headache clinic regarding these headaches. We cannot continue to treat these chronic headaches in the ER. She is stable for discharge. She is follow-up with her regular doctor. Case discussed with Dr. Eller. Disposition Clinical Impression: Headache Disposition: HOME SELF-CARE Condition: Stable Instructions (If sedation given, give patient instructions): Acute Headache (ED) Additional Instructions: Please return to the Emergency Department if symptoms worsen or any other concerns. Please follow-up with your headache clinic for future headaches. Is patient prescribed a controlled substance at d/c from ED?: No Referrals: José Reece MD [Primary Care Provider] - 1-2 days
[2020-04-28 19:07] VITALS: BP 125/74; PULSE 77; RESP 16; TEMP 98.1
== END 2020-04-28 19:21 | disposition home or self-care (01) ==
LOC: EC 16:36
DX: G43.909 Migraine, unspecified, not intractable, without status migrainosus (principal); I10 Essential (primary) hypertension; E78.5 Hyperlipidemia, unspecified; G89.29 Other chronic pain; M54.9 Dorsalgia, unspecified; G40.909 Epilepsy, unspecified, not intractable, without status epilepticus; F17.200 Nicotine dependence, unspecified, uncomplicated; Z79.899 Other long term (current) drug therapy; Z88.8 Allergy status to other drugs, medicaments and biological substances; Z88.0 Allergy status to penicillin; Z88.5 Allergy status to narcotic agent; Z91.040 Latex allergy status; Z88.6 Allergy status to analgesic agent; Z88.1 Allergy status to other antibiotic agents; Z91.02 Food additives allergy status
CPT/HCPCS: 99283; 96374; 96375 ×2; 96376; 96361 ×2; J1200; J2405; J1170

== ENCOUNTER 2020-05-25 19:37 | Emergency (ER) | payer OTHER ==
[2020-05-25 19:43] VITALS: BP 130/88; PULSE 110; RESP 18; TEMP 98.7
[2020-05-25] MEDS ORDERED: HYDROmorphone 1 MG/ML 1 ML SYRINGE IVP STA ×2 (20:14→21:45)
[2020-05-25] MEDS ORDERED: SODIUM CHLORIDE 0.9% 1,000 ML IV STA (20:14)
[2020-05-25] MEDS ORDERED: diphenhydrAMINE 50 MG/ML 1 ML VIAL IVP STA (20:14)
[2020-05-25] MEDS ORDERED: ONDANSETRON 4 MG/2 ML VIAL IVP STA (20:14)
--- NOTE | 2020-05-25 20:29 | ED ---
Headache HPI - General Chief Complaint: Headache Stated Complaint: Headache Time Seen by Provider: 05/25/20 19:51 Source: RN notes reviewed Mode of arrival: ambulatory Limitations: no limitations - History of Present Illness Initial Comments: Patient is a 42-year-old female that presents emergency Department with a migraine-type headache. She notes that she does have a history of migraines. She noted that this migraine has been going on for 2 days constantly this been unrelieved by her migraine medication. He noted that she did take a [place] to no avail. She noted pain with her sunglasses on is an 8 out of 10, but she takes a glasses off she related shot head. She states that she has vomited about 3 times today after attending to eat several meals. She denied any chest pain shortness of breath, fever fatigue chills - Related Data Home Medications Medication Instructions Recorded Confirmed Atorvastatin [Lipitor] 40 mg PO HS 04/02/17 04/28/20 Lacosamide [Vimpat] 100 mg PO BID 06/04/17 04/28/20 HYDROcodone/APAP 7.5-325MG [[place] 1 tab PO TID PRN 07/06/17 04/28/20 7.5-325] Albuterol Sulfate [Ventolin HFA] 2 puff INHALATION RT-Q6H PRN 11/07/19 04/28/20 Cyclobenzaprine [Flexeril] 5 mg PO DAILY PRN 01/10/20 04/28/20 Divalproex ER [Depakote ER] 500 mg PO HS 04/28/20 04/28/20 Galcanezumab-Gnlm [Emgality] 120 mg SQ Q30D 04/28/20 04/28/20 Pregabalin [Lyrica] 75 mg PO BID 04/28/20 04/28/20 amLODIPine [Norvasc] 5 mg PO DAILY 04/28/20 04/28/20 hydrOXYzine pamoate [Vistaril] 50 mg PO BID PRN 04/28/20 04/28/20 Allergies Allergy/AdvReac Type Severity Reaction Status Date / Time dihydroergotamine Allergy Unknown Unknown Verified 05/25/20 19:42 [From Migranal] gabapentin [From Neurontin] Allergy Itching/Swe Verified 05/25/20 19:42 lling latex Allergy Anaphylaxis Verified 05/25/20 19:42 naproxen [From Naprosyn] Allergy Anaphylaxis Verified 05/25/20 19:42 Penicillins Allergy Anaphylaxis Verified 05/25/20 19:42 prednisone Allergy Swelling Verified 05/25/20 19:42 quetiapine fumarate Allergy Itching, Verified 05/25/20 19:42 [From Seroquel] leg cramps rofecoxib [From Vioxx] Allergy Itching, Verified 05/25/20 19:42 leg cramps terfenadine [From [place]eldane] Allergy Rash/Hives Verified 05/25/20 19:42 tramadol Allergy Nausea & Verified 05/25/20 19:42 Vomiting/LEG CRAMPS/HEART FLUTTERS calcium carbonate [From DHEA] AdvReac Chest Pain Verified 05/25/20 19:42 calcium phosphate,dibasic AdvReac Chest Pain Verified 05/25/20 19:42 [From DHEA] clindamycin AdvReac muscle Verified 05/25/20 19:42 cramps clonidine AdvReac fast Verified 05/25/20 19:42 heartbeat, migraine dextromethorphan HBr AdvReac face/neck Verified 05/25/20 19:42 [From NyQuil] flushing diazepam [From Valium] AdvReac Nausea & Verified 05/25/20 19:42 Vomiting divalproex sodium AdvReac Nausea & Verified 05/25/20 19:42 [From Depakote] Vomiting doxylamine [From NyQuil] AdvReac face "beet Verified 05/25/20 19:42 red", elevated temp. ibuprofen [From Motrin] AdvReac abdominal Verified 05/25/20 19:42 & muscle cramps indomethacin [From Indocin] AdvReac Abdominal Verified 05/25/20 19:42 Pain,N/V ketorolac tromethamine AdvReac "built up Verified 05/25/20 19:42 [From Toradol] in system", had to be given something to reverse lorazepam [From Ativan] AdvReac Nausea & Verified 05/25/20 19:42 Vomiting metoclopramide HCl AdvReac muscle Verified 05/25/20 19:42 [From Reglan] cramps nortriptyline [From Pamelor] AdvReac Chest Pain Verified 05/25/20 19:42 prasterone (DHEA) [From DHEA] AdvReac Chest Pain Verified 05/25/20 19:42 prochlorperazine AdvReac leg Verified 05/25/20 19:42 [From Compazine] cramping propranolol AdvReac Chest Pain Verified 05/25/20 19:42 pseudoephedrine HCl AdvReac face "beet Verified 05/25/20 19:42 [From NyQuil] red", elevated temp. quetiapine [From Seroquel] AdvReac leg Verified 05/25/20 19:42 cramping sumatriptan [From Imitrex] AdvReac migrane Verified 05/25/20 19:42 sumatriptan succinate AdvReac migrane Verified 05/25/20 19:42 [From Imitrex] topiramate [From Topamax] AdvReac "built up Verified 05/25/20 19:42 in system", had to be given something to reverse trazodone AdvReac "built up Verified 05/25/20 19:42 in system", had to be given something to reverse zolpidem tartrate AdvReac "Became Verified 05/25/20 19:42 [From Ambien] violent with no memory" zonisamide [From Zonegran] AdvReac inability Verified 05/25/20 19:42 to eat artificial sweetener AdvReac SEVERE Uncoded 04/28/20 16:41 MIGRAINE HEADACHE Review of Systems ROS Statement: Those systems with pertinent positive or pertinent negative responses have been documented in the HPI. ROS Other: All systems not noted in ROS Statement are negative. Past Medical History Past Medical History: Hyperlipidemia, Hypertension, Seizure Disorder Additional Past Medical History / Comment(s): Migraines, viral meningitis x3 as a child, 1995, 2000, chronic back pain, nerve blocks 08/2016 and 12/2016. Last seizure 05/26/19, "ABSENT SEIZURES. HX TACHYCARDIA, GB/CIPD, PTSD History of Any Multi-Drug Resistant Organisms: None Reported Past Surgical History: Appendectomy, Section, Cholecystectomy, Hernia Repair, Hysterectomy, Orthopedic Surgery, Tonsillectomy, Tubal Ligation Additional Past Surgical History / Comment(s): Hiatal Hernia, umbilical hernia repair, left rotator cuff repair, bilateral knee scopes, pain clinic procedures- occipital nerve block. abd exploratory sx(endometreosis), 3 abd scopes 1981, 1989, 1991), lumbar puncture. EGD. nerve biopsy, salvalry gland biospy Past Anesthesia/Blood Transfusion Reactions: No Reported Reaction Additional Past Anesthesia/Blood Transfusion Reaction / Comment(s): Claustrophobic Past Psychological History: Anxiety, Bipolar, Panic Disorder, PTSD Smoking Status: Current every day smoker Past Alcohol Use History: None Reported Past Drug Use History: None Reported - Past Family History Mother Family Medical History: Cancer, Dementia, Diabetes Mellitus, GERD/Reflux, Hyperlipidemia, Hypertension, Thyroid Disorder Additional Family Medical History / Comment(s): Quad CABG, cardiac stents, toes ampuated. Father History Unknown: Yes Family Medical History: No Reported History General Exam Limitations: no limitations Head exam: Present: atraumatic, normocephalic, normal inspection Eye exam: Present: normal appearance, PERRL, EOMI, other (Patient was wearing sunglasses for exam.). Absent: scleral icterus, conjunctival injection, periorbital swelling ENT exam: Present: normal exam, mucous membranes moist Neck exam: Present: normal inspection. Absent: tenderness, meningismus, lymphadenopathy Respiratory exam: Present: normal lung sounds bilaterally. Absent: respiratory distress, wheezes, rales, rhonchi, stridor Cardiovascular Exam: Present: regular rate, normal rhythm, normal heart sounds. Absent: systolic murmur, diastolic murmur, rubs, gallop, clicks GI/Abdominal exam: Present: soft, normal bowel sounds. Absent: distended, tenderness, guarding, rebound, rigid Neurological exam: Present: alert, oriented X3, CN II-XII intact Psychiatric exam: Present: normal affect, normal mood Skin exam: Present: warm, dry, intact, normal color. Absent: rash Course Vital Signs 05/25/20 19:40 Temperature 98.7 F Pulse Rate 110 H Respiratory 18 Rate Blood Pressure 130/88 O2 Sat by Pulse 99 Oximetry Medical Decision Making - Medical Decision Making 50-year-old female complaining of migraine type headache. Dilaudid, Zofran, Benadryl, 1 L normal saline bolus ordered. Case discussed with Dr. Chand, was decided patient to discharge home with follow- up primary care Disposition Clinical Impression: Migraine, Headache Disposition: HOME SELF-CARE Condition: Stable Instructions (If sedation given, give patient instructions): Acute Headache (ED) Additional Instructions: Please return to the Emergency Department if symptoms worsen or any other concerns. Follow-up with primary care 1-2 days. Take at home prescriptions as prescribed. Drink plenty of fluids. Is patient prescribed a controlled substance at d/c from ED?: No Referrals: José Reece MD [Primary Care Provider] - 1-2 days Time of Disposition: 21:36
== END 2020-05-25 22:10 | disposition home or self-care (01) ==
LOC: EC 19:37
DX: G43.909 Migraine, unspecified, not intractable, without status migrainosus (principal); I10 Essential (primary) hypertension; G89.29 Other chronic pain; M54.9 Dorsalgia, unspecified; E78.5 Hyperlipidemia, unspecified; G40.909 Epilepsy, unspecified, not intractable, without status epilepticus; F41.9 Anxiety disorder, unspecified; F31.9 Bipolar disorder, unspecified; F17.200 Nicotine dependence, unspecified, uncomplicated; Z79.899 Other long term (current) drug therapy; Z88.8 Allergy status to other drugs, medicaments and biological substances; Z88.0 Allergy status to penicillin; Z88.5 Allergy status to narcotic agent; Z91.040 Latex allergy status; Z88.6 Allergy status to analgesic agent; Z88.1 Allergy status to other antibiotic agents; Z91.02 Food additives allergy status; Z88.2 Allergy status to sulfonamides
CPT/HCPCS: 99284; 96374; 96375 ×2; 96376; 96361; J1200; J2405; J1170

== ENCOUNTER 2020-06-04 20:27 | Emergency (ER) | payer OTHER ==
[2020-06-04] MEDS ORDERED: ONDANSETRON 4 MG/2 ML VIAL IVP STA (20:48)
[2020-06-04] MEDS ORDERED: HYDROmorphone 1 MG/ML 1 ML SYRINGE IVP STA ×2 (20:48→21:43)
[2020-06-04] MEDS ORDERED: diphenhydrAMINE 50 MG/ML 1 ML VIAL IVP STA (20:48)
[2020-06-04] MEDS ORDERED: SODIUM CHLORIDE 0.9% 1,000 ML IV STA (20:48)
--- NOTE | 2020-06-04 20:50 | ED ---
Headache HPI - General Source: RN notes reviewed Mode of arrival: ambulatory Limitations: no limitations <Kev Yung - Last Filed: 06/04/20 22:12> <Minerva Eller - Last Filed: 06/05/20 22:53> - General Chief Complaint: Headache Stated Complaint: Headache Time Seen by Provider: 06/04/20 20:39 - History of Present Illness Initial Comments: Patient is a 50-year-old female that presents to emergency department complaining of migraine headache with history. She is a regular to emergency department for the same complaint. She notes that she does follow-up with her primary care but sometimes her headaches get so severe that she has cut emergency department. Her pain is a 10 out of 10 with no relief from any home medications. She denied any vomiting shortness of breath chest pain diarrhea constipation fever fatigue chills or redness dizziness. (Kev Yung) - Related Data Home Medications Medication Instructions Recorded Confirmed Atorvastatin [Lipitor] 40 mg PO HS 04/02/17 04/28/20 Lacosamide [Vimpat] 100 mg PO BID 06/04/17 04/28/20 HYDROcodone/APAP 7.5-325MG [[place] 1 tab PO TID PRN 07/06/17 04/28/20 7.5-325] Albuterol Sulfate [Ventolin HFA] 2 puff INHALATION RT-Q6H PRN 11/07/19 04/28/20 Cyclobenzaprine [Flexeril] 5 mg PO DAILY PRN 01/10/20 04/28/20 Divalproex ER [Depakote ER] 500 mg PO HS 04/28/20 04/28/20 Galcanezumab-Gnlm [Emgality] 120 mg SQ Q30D 04/28/20 04/28/20 Pregabalin [Lyrica] 75 mg PO BID 04/28/20 04/28/20 amLODIPine [Norvasc] 5 mg PO DAILY 04/28/20 04/28/20 hydrOXYzine pamoate [Vistaril] 50 mg PO BID PRN 04/28/20 04/28/20 Allergies Allergy/AdvReac Type Severity Reaction Status Date / Time dihydroergotamine Allergy Unknown Unknown Verified 06/04/20 20:35 [From Migranal] gabapentin [From Neurontin] Allergy Itching/Swe Verified 06/04/20 20:35 lling latex Allergy Anaphylaxis Verified 06/04/20 20:35 naproxen [From Naprosyn] Allergy Anaphylaxis Verified 06/04/20 20:35 Penicillins Allergy Anaphylaxis Verified 06/04/20 20:35 prednisone Allergy Swelling Verified 06/04/20 20:35 quetiapine fumarate Allergy Itching, Verified 06/04/20 20:35 [From Seroquel] leg cramps rofecoxib [From Vioxx] Allergy Itching, Verified 06/04/20 20:35 leg cramps terfenadine [From Seldane] Allergy Rash/Hives Verified 06/04/20 20:35 tramadol Allergy Nausea & Verified 06/04/20 20:35 Vomiting/LEG CRAMPS/HEART FLUTTERS calcium carbonate [From DHEA] AdvReac Chest Pain Verified 06/04/20 20:35 calcium phosphate,dibasic AdvReac Chest Pain Verified 06/04/20 20:35 [From DHEA] clindamycin AdvReac muscle Verified 06/04/20 20:35 cramps clonidine AdvReac fast Verified 06/04/20 20:35 heartbeat, migraine dextromethorphan HBr AdvReac face/neck Verified 06/04/20 20:35 [From NyQuil] flushing diazepam [From Valium] AdvReac Nausea & Verified 06/04/20 20:35 Vomiting divalproex sodium AdvReac Nausea & Verified 06/04/20 20:35 [From Depakote] Vomiting doxylamine [From NyQuil] AdvReac face "beet Verified 06/04/20 20:35 red", elevated temp. ibuprofen [From Motrin] AdvReac abdominal Verified 06/04/20 20:35 & muscle cramps indomethacin [From Indocin] AdvReac Abdominal Verified 06/04/20 20:35 Pain,N/V ketorolac tromethamine AdvReac "built up Verified 06/04/20 20:35 [From Toradol] in system", had to be given something to reverse lorazepam [From Ativan] AdvReac Nausea & Verified 06/04/20 20:35 Vomiting metoclopramide HCl AdvReac muscle Verified 06/04/20 20:35 [From Reglan] cramps nortriptyline [From Pamelor] AdvReac Chest Pain Verified 06/04/20 20:35 prasterone (DHEA) [From DHEA] AdvReac Chest Pain Verified 06/04/20 20:35 prochlorperazine AdvReac leg Verified 06/04/20 20:35 [From Compazine] cramping propranolol AdvReac Chest Pain Verified 06/04/20 20:35 pseudoephedrine HCl AdvReac face "beet Verified 06/04/20 20:35 [From NyQuil] red", elevated temp. quetiapine [From Seroquel] AdvReac leg Verified 06/04/20 20:35 cramping sumatriptan [From Imitrex] AdvReac migrane Verified 06/04/20 20:35 sumatriptan succinate AdvReac migrane Verified 06/04/20 20:35 [From Imitrex] topiramate [From Topamax] AdvReac "built up Verified 06/04/20 20:35 in system", had to be given something to reverse trazodone AdvReac "built up Verified 06/04/20 20:35 in system", had to be given something to reverse zolpidem tartrate AdvReac "Became Verified 06/04/20 20:35 [From Ambien] violent with no memory" zonisamide [From Zonegran] AdvReac inability Verified 06/04/20 20:35 to eat artificial sweetener AdvReac SEVERE Uncoded 06/04/20 20:35 MIGRAINE HEADACHE Review of Systems ROS Other: All systems not noted in ROS Statement are negative. <Kev Yung - Last Filed: 06/04/20 22:12> ROS Other: All systems not noted in ROS Statement are negative. <Minerva Eller - Last Filed: 06/05/20 22:53> ROS Statement: Those systems with pertinent positive or pertinent negative responses have been documented in the HPI. Past Medical History Past Medical History: Hyperlipidemia, Hypertension, Seizure Disorder Additional Past Medical History / Comment(s): Migraines, viral meningitis x3 as a child, 1995, 2000, chronic back pain, nerve blocks 08/2016 and 12/2016. Last seizure 05/26/19, "ABSENT SEIZURES. HX TACHYCARDIA, GB/CIPD, PTSD History of Any Multi-Drug Resistant Organisms: None Reported Past Surgical History: Appendectomy, Section, Cholecystectomy, Hernia Repair, Hysterectomy, Orthopedic Surgery, Tonsillectomy, Tubal Ligation Additional Past Surgical History / Comment(s): Hiatal Hernia, umbilical hernia repair, left rotator cuff repair, bilateral knee scopes, pain clinic procedures- occipital nerve block. abd exploratory sx(endometreosis), 3 abd scopes 1981, 1989, 1991), lumbar puncture. EGD. nerve biopsy, salvalry gland biospy Past Anesthesia/Blood Transfusion Reactions: No Reported Reaction Additional Past Anesthesia/Blood Transfusion Reaction / Comment(s): Claustrophobic Past Psychological History: Anxiety, Bipolar, Panic Disorder, PTSD Smoking Status: Current every day smoker Past Alcohol Use History: None Reported Past Drug Use History: None Reported - Past Family History Mother Family Medical History: Cancer, Dementia, Diabetes Mellitus, GERD/Reflux, Hyperlipidemia, Hypertension, Thyroid Disorder Additional Family Medical History / Comment(s): Quad CABG, cardiac stents, toes ampuated. Father History Unknown: Yes Family Medical History: No Reported History <Kev Yung - Last Filed: 06/04/20 22:12> General Exam Limitations: no limitations General appearance: alert, in no apparent distress, obese Head exam: Present: atraumatic, normocephalic, normal inspection Eye exam: Present: normal appearance, PERRL, EOMI. Absent: scleral icterus, conjunctival injection, periorbital swelling Neck exam: Present: normal inspection. Absent: tenderness, meningismus, lymphadenopathy Respiratory exam: Present: normal lung sounds bilaterally. Absent: respiratory distress, wheezes, rales, rhonchi, stridor Cardiovascular Exam: Present: regular rate, normal rhythm, normal heart sounds. Absent: systolic murmur, diastolic murmur, rubs, gallop, clicks GI/Abdominal exam: Present: soft, normal bowel sounds. Absent: distended, tenderness, guarding, rebound, rigid Extremities exam: Present: normal inspection, full ROM, normal capillary refill. Absent: tenderness, pedal edema, joint swelling, calf tenderness Neurological exam: Present: alert, oriented X3, CN II-XII intact Psychiatric exam: Present: normal affect, normal mood Skin exam: Present: warm, dry, intact, normal color. Absent: rash <Kev Yung - Last Filed: 06/04/20 22:12> Course Vital Signs 06/04/20 06/04/20 20:32 23:47 Temperature 98 F 98.0 F Pulse Rate 105 H 96 Respiratory 24 16 Rate Blood Pressure 130/85 128/78 O2 Sat by Pulse 97 98 Oximetry Medical Decision Making <Kev Yung - Last Filed: 06/04/20 22:12> <Minerva Eller - Last Filed: 06/05/20 22:53> - Medical Decision Making 50-year-old female with migraine type headache with photosensitivity. 1 L normal saline, 1 mg of Dilaudid, 50 kg Benadryl, 4 mg Zofran ordered. Patient states she is feeling better mildly but wants to know she gets more pain medication, 1 more milligram of Dilaudid ordered. Case discussed with Dr. Eller, decided the patient to discharge home with follow-up primary care. (Kev Yung) I was available for consultation in the emergency department. The history and physical exam were done by the midlevel provider. I was consulted for this patients care. I reviewed the case with the midlevel provider and based on their presentation of the patient, I agree with the assessment, medical decision making and plan of care as documented. Chart was dictated using [employer] dictation software. Attempts were made to correct any dictation errors however some typographical errors may persist. Patient was seen during a national state of emergency due to the Covid-19 pandemic. (Minerva Eller) Disposition Is patient prescribed a controlled substance at d/c from ED?: No Time of Disposition: 22:13 <Kev Yung - Last Filed: 06/04/20 22:12> <Minerva Eller - Last Filed: 06/05/20 22:53> Clinical Impression: Headache, Migraine Disposition: HOME SELF-CARE Condition: Stable Instructions (If sedation given, give patient instructions): Acute Headache (ED) Additional Instructions: Please return to the Emergency Department if symptoms worsen or any other concerns. We stressed that he follow up with her primary care and neurologist to get migraine medication. Follow-up within 1-2 days. Drink plenty of fluids, avoid any aggravating or irritating stimuli. Take [id number] and prescription medications as prescribed. Referrals: José Reece MD [Primary Care Provider] - 1-2 days
[2020-06-04 23:48] VITALS: BP 128/78; PULSE 96; RESP 16; TEMP 98
== END 2020-06-04 23:46 | disposition home or self-care (01) ==
LOC: EC 20:27
DX: G43.909 Migraine, unspecified, not intractable, without status migrainosus (principal); E78.5 Hyperlipidemia, unspecified; F41.0 Panic disorder [episodic paroxysmal anxiety]; I10 Essential (primary) hypertension; G40.909 Epilepsy, unspecified, not intractable, without status epilepticus; F31.9 Bipolar disorder, unspecified; F43.10 Post-traumatic stress disorder, unspecified; F17.200 Nicotine dependence, unspecified, uncomplicated; Z90.49 Acquired absence of other specified parts of digestive tract; Z90.710 Acquired absence of both cervix and uterus; Z90.09 Acquired absence of other part of head and neck; Z98.51 Tubal ligation status; Z79.899 Other long term (current) drug therapy
CPT/HCPCS: 99284; 96374; 96375; 96376; 96361; J1200; J2405; J1642; J1170; 99283

== ENCOUNTER 2020-06-18 19:06 | Emergency (ER) | payer OTHER ==
[2020-06-18 19:14] VITALS: TEMP 98.4
[2020-06-18] MEDS ORDERED: ONDANSETRON 4 MG/2 ML VIAL IVP STA (19:40)
[2020-06-18] MEDS ORDERED: SODIUM CHLORIDE 0.9% 1,000 ML IV STA (19:40)
[2020-06-18] MEDS ORDERED: diphenhydrAMINE 50 MG/ML 1 ML VIAL IVP STA (19:40)
[2020-06-18] MEDS ORDERED: HYDROmorphone 1 MG/ML 1 ML SYRINGE IVP STA ×2 (19:40→20:47)
--- NOTE | 2020-06-18 19:46 | ED ---
Headache HPI - General Chief Complaint: Headache Stated Complaint: Migraine Time Seen by Provider: 06/18/20 19:23 Mode of arrival: ambulatory Limitations: no limitations - History of Present Illness Initial Comments: Patient is a 50-year-old female presenting to the emergency Department with complaints of a migraine that started early this morning. Patient has history of migraines, she is well known to this ER for migraines. She currently follows with the migraine clinic at [facility]. She did start a monthly medication about 3 months ago that has been helping. Patient states her headache started early this morning and she can't seem to get it down. She is complaining of 9/10 pain, nausea. States this feels like her normal migraines. She's had no fevers, no trauma. She has no further complaints at this time. Upon arrival to the ER, her vitals are stable. - Related Data Home Medications Medication Instructions Recorded Confirmed Atorvastatin [Lipitor] 40 mg PO HS 04/02/17 04/28/20 Lacosamide [Vimpat] 100 mg PO BID 06/04/17 04/28/20 HYDROcodone/APAP 7.5-325MG [[place] 1 tab PO TID PRN 07/06/17 04/28/20 7.5-325] Albuterol Sulfate [Ventolin HFA] 2 puff INHALATION RT-Q6H PRN 11/07/19 04/28/20 Cyclobenzaprine [Flexeril] 5 mg PO DAILY PRN 01/10/20 04/28/20 Divalproex ER [Depakote ER] 500 mg PO HS 04/28/20 04/28/20 Galcanezumab-Gnlm [Emgality] 120 mg SQ Q30D 04/28/20 04/28/20 Pregabalin [Lyrica] 75 mg PO BID 04/28/20 04/28/20 amLODIPine [Norvasc] 5 mg PO DAILY 04/28/20 04/28/20 hydrOXYzine pamoate [Vistaril] 50 mg PO BID PRN 04/28/20 04/28/20 Allergies Allergy/AdvReac Type Severity Reaction Status Date / Time dihydroergotamine Allergy Unknown Unknown Verified 06/18/20 19:15 [From Migranal] gabapentin [From Neurontin] Allergy Itching/Swe Verified 06/18/20 19:15 lling latex Allergy Anaphylaxis Verified 06/18/20 19:15 naproxen [From Naprosyn] Allergy Anaphylaxis Verified 06/18/20 19:15 Penicillins Allergy Anaphylaxis Verified 06/18/20 19:15 prednisone Allergy Swelling Verified 06/18/20 19:15 quetiapine fumarate Allergy Itching, Verified 06/18/20 19:15 [From Seroquel] leg cramps rofecoxib [From Vioxx] Allergy Itching, Verified 06/18/20 19:15 leg cramps terfenadine [From Seldane] Allergy Rash/Hives Verified 06/18/20 19:15 tramadol Allergy Nausea & Verified 06/18/20 19:15 Vomiting/LEG CRAMPS/HEART FLUTTERS calcium carbonate [From DHEA] AdvReac Chest Pain Verified 06/18/20 19:15 calcium phosphate,dibasic AdvReac Chest Pain Verified 06/18/20 19:15 [From DHEA] clindamycin AdvReac muscle Verified 06/18/20 19:15 cramps clonidine AdvReac fast Verified 06/18/20 19:15 heartbeat, migraine dextromethorphan HBr AdvReac face/neck Verified 06/18/20 19:15 [From NyQuil] flushing diazepam [From Valium] AdvReac Nausea & Verified 06/18/20 19:15 Vomiting divalproex sodium AdvReac Nausea & Verified 06/18/20 19:15 [From Depakote] Vomiting doxylamine [From NyQuil] AdvReac face "beet Verified 06/18/20 19:15 red", elevated temp. ibuprofen [From Motrin] AdvReac abdominal Verified 06/18/20 19:15 & muscle cramps indomethacin [From Indocin] AdvReac Abdominal Verified 06/18/20 19:15 Pain,N/V ketorolac tromethamine AdvReac "built up Verified 06/18/20 19:15 [From Toradol] in system", had to be given something to reverse lorazepam [From Ativan] AdvReac Nausea & Verified 06/18/20 19:15 Vomiting metoclopramide HCl AdvReac muscle Verified 06/18/20 19:15 [From Reglan] cramps nortriptyline [From Pamelor] AdvReac Chest Pain Verified 06/18/20 19:15 prasterone (DHEA) [From DHEA] AdvReac Chest Pain Verified 06/18/20 19:15 prochlorperazine AdvReac leg Verified 06/18/20 19:15 [From Compazine] cramping propranolol AdvReac Chest Pain Verified 06/18/20 19:15 pseudoephedrine HCl AdvReac face "beet Verified 06/18/20 19:15 [From NyQuil] red", elevated temp. quetiapine [From Seroquel] AdvReac leg Verified 06/18/20 19:15 cramping sumatriptan [From Imitrex] AdvReac migrane Verified 06/18/20 19:15 sumatriptan succinate AdvReac migrane Verified 06/18/20 19:15 [From Imitrex] topiramate [From Topamax] AdvReac "built up Verified 06/18/20 19:15 in system", had to be given something to reverse trazodone AdvReac "built up Verified 06/18/20 19:15 in system", had to be given something to reverse zolpidem tartrate AdvReac "Became Verified 06/18/20 19:15 [From Ambien] violent with no memory" zonisamide [From Zonegran] AdvReac inability Verified 06/18/20 19:15 to eat artificial sweetener AdvReac SEVERE Uncoded 06/18/20 19:15 MIGRAINE HEADACHE Review of Systems ROS Statement: Those systems with pertinent positive or pertinent negative responses have been documented in the HPI. ROS Other: All systems not noted in ROS Statement are negative. Past Medical History Past Medical History: Hyperlipidemia, Hypertension, Seizure Disorder Additional Past Medical History / Comment(s): Migraines, viral meningitis x3 as a child, 1995, 2000, chronic back pain, nerve blocks 08/2016 and 12/2016. Last seizure 05/26/19, "ABSENT SEIZURES. HX TACHYCARDIA, GB/CIPD, PTSD History of Any Multi-Drug Resistant Organisms: None Reported Past Surgical History: Appendectomy, Section, Cholecystectomy, Hernia Repair, Hysterectomy, Orthopedic Surgery, Tonsillectomy, Tubal Ligation Additional Past Surgical History / Comment(s): Hiatal Hernia, umbilical hernia repair, left rotator cuff repair, bilateral knee scopes, pain clinic procedures- occipital nerve block. abd exploratory sx(endometreosis), 3 abd scopes 1981, 1989, 1991), lumbar puncture. EGD. nerve biopsy, salvalry gland biospy Past Anesthesia/Blood Transfusion Reactions: No Reported Reaction Additional Past Anesthesia/Blood Transfusion Reaction / Comment(s): Claustrophobic Past Psychological History: Anxiety, Bipolar, Panic Disorder, PTSD Smoking Status: Current every day smoker Past Alcohol Use History: None Reported Past Drug Use History: None Reported - Past Family History Mother Family Medical History: Cancer, Dementia, Diabetes Mellitus, GERD/Reflux, Hyperlipidemia, Hypertension, Thyroid Disorder Additional Family Medical History / Comment(s): Quad CABG, cardiac stents, toes ampuated. Father History Unknown: Yes Family Medical History: No Reported History General Exam - General Exam Comments Initial Comments: GENERAL: Patient is well-developed and well-nourished. Patient is nontoxic and in moderate distress. HEAD: Atraumatic, normocephalic. EYES: Pupils equal round and reactive to light, extraocular movements intact, sclera anicteric, conjunctiva are normal. Eyelids were unremarkable. ENT: TMs normal, nares patent, oropharynx clear without exudates. Moist mucous membranes. NECK: Normal range of motion, supple without lymphadenopathy or JVD. LUNGS: Unlabored respirations. Breath sounds clear to auscultation bilaterally and equal. No wheezes rales or rhonchi. HEART: Regular rate and rhythm without murmurs, rubs or gallops. ABDOMEN: Soft, nontender, normoactive bowel sounds. No guarding, no rebound. No masses appreciated. : Deferred MUSCULOSKELETAL: Normal extremities with adequate strength and normal range of motion, no pitting or edema. No clubbing or cyanosis. NEUROLOGICAL: Patient is alert and oriented x 3. Motor and sensory are also intact. Cranial nerves II through XII grossly intact. Symmetrical smile. Normal speech, normal gait. PSYCH: Normal mood, normal affect. SKIN: Warm, Dry, normal turgor, no rashes or lesions noted. Limitations: no limitations Course Vital Signs 06/18/20 19:13 Temperature 98.4 F Pulse Rate 106 H Respiratory 20 Rate Blood Pressure 140/94 O2 Sat by Pulse 99 Oximetry Medical Decision Making - Medical Decision Making Patient is a 50-year-old female here for a migraine started this morning. She is well-known to this ER for frequent migraine visits. She currently follows at the migraine clinic at [facility]. She did start a new medication 3 months ago which has been helping with her migraines, they are less often. This does feel like her normal migraines, no trauma, no fevers. Her vital signs are stable, her exam is unremarkable, no acute neuro deficits. She is given typical migraine medicines, does report improvement. She will follow-up with her [facility] doctors. Patient is stable for discharge. Patient is in agreement with this plan of care. Return parameters were discussed with the patient and they verbalized understanding. Case discussed with Dr. Wooten. Disposition Clinical Impression: Headache Disposition: HOME SELF-CARE Condition: Stable Instructions (If sedation given, give patient instructions): Acute Headache (ED) Additional Instructions: Please return to the Emergency Department if symptoms worsen or any other concerns. Follow-up with your migraine clinic as discussed. Is patient prescribed a controlled substance at d/c from ED?: No Referrals: José Reece MD [Primary Care Provider] - 1-2 days Time of Disposition: 21:01
[2020-06-18 21:22] VITALS: BP 158/96; PULSE 97; RESP 16
== END 2020-06-18 21:21 | disposition home or self-care (01) ==
LOC: EC 19:06
DX: G43.909 Migraine, unspecified, not intractable, without status migrainosus (principal); I10 Essential (primary) hypertension; E78.5 Hyperlipidemia, unspecified; G89.29 Other chronic pain; M54.9 Dorsalgia, unspecified; G40.909 Epilepsy, unspecified, not intractable, without status epilepticus; F41.9 Anxiety disorder, unspecified; F17.200 Nicotine dependence, unspecified, uncomplicated; Z79.899 Other long term (current) drug therapy; Z88.8 Allergy status to other drugs, medicaments and biological substances; Z88.0 Allergy status to penicillin; Z91.040 Latex allergy status; Z88.5 Allergy status to narcotic agent; Z88.6 Allergy status to analgesic agent; Z88.1 Allergy status to other antibiotic agents; Z88.2 Allergy status to sulfonamides; Z91.02 Food additives allergy status
CPT/HCPCS: 99283; 96374; 96375 ×2; 96376; 96361; J1200; J2405; J1170

== ENCOUNTER 2020-06-21 20:33 | Emergency (ER) | payer OTHER ==
[2020-06-21 20:37] VITALS: BP 145/95; PULSE 116; RESP 18; TEMP 98.3
[2020-06-21] MEDS ORDERED: SODIUM CHLORIDE 0.9% 1,000 ML IV STA (23:22)
[2020-06-21] MEDS ORDERED: ONDANSETRON 4 MG/2 ML VIAL IVP STA (23:22)
[2020-06-21] MEDS ORDERED: HYDROmorphone 0.5 MG/0.5 ML SYRINGE IVP STA (23:22)
[2020-06-21] MEDS ORDERED: diphenhydrAMINE 50 MG/ML 1 ML VIAL IVP STA (23:22)
--- NOTE | 2020-06-21 23:28 | ED ---
Headache HPI - General Chief Complaint: Headache Stated Complaint: Migraine Time Seen by Provider: 06/21/20 23:03 Source: RN notes reviewed Mode of arrival: wheelchair Limitations: no limitations - History of Present Illness Initial Comments: Patient is a 50-year-old female presents emergency department complaining of a migraine. She frequents the ER for the same complaint. She's been here multiple times this month. She has been instructed follow-up to primary care several times, she stated that she finally called them yesterday left message. She noted that her primary care is overall miles away. She stated that she is having some blurry vision and some neck stiffness currently. She was sitting up in bed with sunglasses on stating that light makes it 10 times worse. She denied any chest pain shortness of breath nausea vomiting diarrhea constipation fever fatigue chills - Related Data Home Medications Medication Instructions Recorded Confirmed Atorvastatin [Lipitor] 40 mg PO HS 04/02/17 04/28/20 Lacosamide [Vimpat] 100 mg PO BID 06/04/17 04/28/20 HYDROcodone/APAP 7.5-325MG [[place] 1 tab PO TID PRN 07/06/17 04/28/20 7.5-325] Albuterol Sulfate [Ventolin HFA] 2 puff INHALATION RT-Q6H PRN 11/07/19 04/28/20 Cyclobenzaprine [Flexeril] 5 mg PO DAILY PRN 01/10/20 04/28/20 Divalproex ER [Depakote ER] 500 mg PO HS 04/28/20 04/28/20 Galcanezumab-Gnlm [Emgality] 120 mg SQ Q30D 04/28/20 04/28/20 Pregabalin [Lyrica] 75 mg PO BID 04/28/20 04/28/20 amLODIPine [Norvasc] 5 mg PO DAILY 04/28/20 04/28/20 hydrOXYzine pamoate [Vistaril] 50 mg PO BID PRN 04/28/20 04/28/20 Allergies Allergy/AdvReac Type Severity Reaction Status Date / Time dihydroergotamine Allergy Unknown Unknown Verified 06/21/20 20:37 [From Migranal] gabapentin [From Neurontin] Allergy Itching/Swe Verified 06/21/20 20:37 lling latex Allergy Anaphylaxis Verified 06/21/20 20:37 naproxen [From Naprosyn] Allergy Anaphylaxis Verified 06/21/20 20:37 Penicillins Allergy Anaphylaxis Verified 06/21/20 20:37 prednisone Allergy Swelling Verified 06/21/20 20:37 quetiapine fumarate Allergy Itching, Verified 06/21/20 20:37 [From Seroquel] leg cramps rofecoxib [From Vioxx] Allergy Itching, Verified 06/21/20 20:37 leg cramps terfenadine [From Seldane] Allergy Rash/Hives Verified 06/21/20 20:37 tramadol Allergy Nausea & Verified 06/21/20 20:37 Vomiting/LEG CRAMPS/HEART FLUTTERS calcium carbonate [From DHEA] AdvReac Chest Pain Verified 06/21/20 20:37 calcium phosphate,dibasic AdvReac Chest Pain Verified 06/21/20 20:37 [From DHEA] clindamycin AdvReac muscle Verified 06/21/20 20:37 cramps clonidine AdvReac fast Verified 06/21/20 20:37 heartbeat, migraine dextromethorphan HBr AdvReac face/neck Verified 06/21/20 20:37 [From NyQuil] flushing diazepam [From Valium] AdvReac Nausea & Verified 06/21/20 20:37 Vomiting divalproex sodium AdvReac Nausea & Verified 06/21/20 20:37 [From Depakote] Vomiting doxylamine [From NyQuil] AdvReac face "beet Verified 06/21/20 20:37 red", elevated temp. ibuprofen [From Motrin] AdvReac abdominal Verified 06/21/20 20:37 & muscle cramps indomethacin [From Indocin] AdvReac Abdominal Verified 06/21/20 20:37 Pain,N/V ketorolac tromethamine AdvReac "built up Verified 06/21/20 20:37 [From Toradol] in system", had to be given something to reverse lorazepam [From Ativan] AdvReac Nausea & Verified 06/21/20 20:37 Vomiting metoclopramide HCl AdvReac muscle Verified 06/21/20 20:37 [From Reglan] cramps nortriptyline [From Pamelor] AdvReac Chest Pain Verified 06/21/20 20:37 prasterone (DHEA) [From DHEA] AdvReac Chest Pain Verified 06/21/20 20:37 prochlorperazine AdvReac leg Verified 06/21/20 20:37 [From Compazine] cramping propranolol AdvReac Chest Pain Verified 06/21/20 20:37 pseudoephedrine HCl AdvReac face "beet Verified 06/21/20 20:37 [From NyQuil] red", elevated temp. quetiapine [From Seroquel] AdvReac leg Verified 06/21/20 20:37 cramping sumatriptan [From Imitrex] AdvReac migrane Verified 06/21/20 20:37 sumatriptan succinate AdvReac migrane Verified 06/21/20 20:37 [From Imitrex] topiramate [From Topamax] AdvReac "built up Verified 06/21/20 20:37 in system", had to be given something to reverse trazodone AdvReac "built up Verified 06/21/20 20:37 in system", had to be given something to reverse zolpidem tartrate AdvReac "Became Verified 06/21/20 20:37 [From Ambien] violent with no memory" zonisamide [From Zonegran] AdvReac inability Verified 06/21/20 20:37 to eat artificial sweetener AdvReac SEVERE Uncoded 06/21/20 20:37 MIGRAINE HEADACHE Review of Systems ROS Statement: Those systems with pertinent positive or pertinent negative responses have been documented in the HPI. ROS Other: All systems not noted in ROS Statement are negative. Past Medical History Past Medical History: Hyperlipidemia, Hypertension, Seizure Disorder Additional Past Medical History / Comment(s): Migraines, viral meningitis x3 as a child, 1995, 2000, chronic back pain, nerve blocks 08/2016 and 12/2016. Last seizure 05/26/19, "ABSENT SEIZURES. HX TACHYCARDIA, GB/CIPD, PTSD History of Any Multi-Drug Resistant Organisms: None Reported Past Surgical History: Appendectomy, Section, Cholecystectomy, Hernia Repair, Hysterectomy, Orthopedic Surgery, Tonsillectomy, Tubal Ligation Additional Past Surgical History / Comment(s): Hiatal Hernia, umbilical hernia repair, left rotator cuff repair, bilateral knee scopes, pain clinic procedures- occipital nerve block. abd exploratory sx(endometreosis), 3 abd scopes 1981, 1989, 1991), lumbar puncture. EGD. nerve biopsy, salvalry gland biospy Past Anesthesia/Blood Transfusion Reactions: No Reported Reaction Additional Past Anesthesia/Blood Transfusion Reaction / Comment(s): Claustrophobic Past Psychological History: Anxiety, Bipolar, Panic Disorder, PTSD Smoking Status: Current every day smoker Past Alcohol Use History: None Reported Past Drug Use History: None Reported - Past Family History Mother Family Medical History: Cancer, Dementia, Diabetes Mellitus, GERD/Reflux, Hyperlipidemia, Hypertension, Thyroid Disorder Additional Family Medical History / Comment(s): Quad CABG, cardiac stents, toes ampuated. Father History Unknown: Yes Family Medical History: No Reported History General Exam Limitations: no limitations General appearance: alert, in no apparent distress, obese Head exam: Present: atraumatic, normocephalic, normal inspection Eye exam: Present: normal appearance, PERRL, EOMI. Absent: scleral icterus, conjunctival injection, periorbital swelling ENT exam: Present: normal exam, mucous membranes moist Neck exam: Present: normal inspection. Absent: tenderness, meningismus, lymphadenopathy Respiratory exam: Present: normal lung sounds bilaterally. Absent: respiratory distress, wheezes, rales, rhonchi, stridor Cardiovascular Exam: Present: regular rate, normal rhythm, normal heart sounds. Absent: systolic murmur, diastolic murmur, rubs, gallop, clicks GI/Abdominal exam: Present: soft, normal bowel sounds. Absent: distended, tenderness, guarding, rebound, rigid Extremities exam: Present: normal inspection, full ROM, normal capillary refill. Absent: tenderness, pedal edema, joint swelling, calf tenderness Neurological exam: Present: alert, oriented X3, CN II-XII intact Psychiatric exam: Present: normal affect, normal mood Skin exam: Present: warm, dry, intact, normal color. Absent: rash Course Vital Signs 06/21/20 20:34 Temperature 98.3 F Pulse Rate 116 H Respiratory 18 Rate Blood Pressure 145/95 O2 Sat by Pulse 98 Oximetry Medical Decision Making - Medical Decision Making 42-year-old female complaining of migraine. 1 L normal saline, 4 mg Zofran, 50 mg of Benadryl, 0.5 mg of Dilaudid ordered. Case discussed with Dr. An, patient to discharge home with conservative management and follow-up to primary care. Disposition Clinical Impression: Headache, Migraine Disposition: HOME SELF-CARE Condition: Stable Instructions (If sedation given, give patient instructions): Acute Headache (ED) Additional Instructions: Please return to the Emergency Department if symptoms worsen or any other concerns. Establish new primary care culture home. Follow-up with neurology as needed. Continue to take at home prescriptions as prescribed. Is patient prescribed a controlled substance at d/c from ED?: No Referrals: José Reece MD [Primary Care Provider] - 1-2 days Time of Disposition: 00:26
[2020-06-22] MEDS ORDERED: HYDROmorphone 0.5 MG/0.5 ML SYRINGE IVP STA (00:51)
== END 2020-06-22 01:50 | disposition home or self-care (01) ==
LOC: EC 20:33
DX: G43.909 Migraine, unspecified, not intractable, without status migrainosus (principal); F41.9 Anxiety disorder, unspecified; F32.9 Major depressive disorder, single episode, unspecified; F41.0 Panic disorder [episodic paroxysmal anxiety]; F43.10 Post-traumatic stress disorder, unspecified; E78.5 Hyperlipidemia, unspecified; I10 Essential (primary) hypertension; G40.909 Epilepsy, unspecified, not intractable, without status epilepticus; F17.200 Nicotine dependence, unspecified, uncomplicated; Z79.899 Other long term (current) drug therapy; Z88.0 Allergy status to penicillin; Z88.1 Allergy status to other antibiotic agents; Z88.2 Allergy status to sulfonamides; Z88.5 Allergy status to narcotic agent; Z88.6 Allergy status to analgesic agent; Z88.8 Allergy status to other drugs, medicaments and biological substances; Z91.040 Latex allergy status; Z90.49 Acquired absence of other specified parts of digestive tract; Z90.710 Acquired absence of both cervix and uterus; Z98.51 Tubal ligation status
CPT/HCPCS: 99283; 96374; 96375 ×3; 96376; 96361 ×2; J1200; J2405; J1642; J1170

== ENCOUNTER 2020-07-02 00:01 | Emergency (ER) | payer OTHER ==
[2020-07-02 00:15] VITALS: BP 150/104; PULSE 96; RESP 18; TEMP 97.9
[2020-07-02] MEDS ORDERED: ONDANSETRON 4 MG/2 ML VIAL IM STA (01:00)
[2020-07-02] MEDS ORDERED: HYDROmorphone 1 MG/ML 1 ML SYRINGE IM STA (01:00)
[2020-07-02] MEDS ORDERED: diphenhydrAMINE 50 MG CAP PO STA (01:01)
--- NOTE | 2020-07-02 01:14 | ED ---
General Adult HPI - General Chief complaint: Headache Stated complaint: Migraine Time Seen by Provider: 07/02/20 00:41 Source: patient, RN notes reviewed Mode of arrival: wheelchair Limitations: no limitations - History of Present Illness Initial comments: 50-year-old female with chronic migraines presents to the emergency room for chief complaint of headache. Patient reports that she has had a migraine headache for the past several days. States it is consistent with previous migraines. Patient states she is supposed to be seeing her specialist in July for breakthrough pain medication. Patient denies any sudden onset or thunderclap symptomology. Denies neck stiffness. Does admit to light sensitivity.Patient has no other complaints at this time including shortness of breath, chest pain, abdominal pain, nausea or vomiting, or visual changes. - Related Data Home Medications Medication Instructions Recorded Confirmed Atorvastatin [Lipitor] 40 mg PO HS 04/02/17 04/28/20 Lacosamide [Vimpat] 100 mg PO BID 06/04/17 04/28/20 HYDROcodone/APAP 7.5-325MG [[place] 1 tab PO TID PRN 07/06/17 04/28/20 7.5-325] Albuterol Sulfate [Ventolin HFA] 2 puff INHALATION RT-Q6H PRN 11/07/19 04/28/20 Cyclobenzaprine [Flexeril] 5 mg PO DAILY PRN 01/10/20 04/28/20 Divalproex ER [Depakote ER] 500 mg PO HS 04/28/20 04/28/20 Galcanezumab-Gnlm [Emgality] 120 mg SQ Q30D 04/28/20 04/28/20 Pregabalin [Lyrica] 75 mg PO BID 04/28/20 04/28/20 amLODIPine [Norvasc] 5 mg PO DAILY 04/28/20 04/28/20 hydrOXYzine pamoate [Vistaril] 50 mg PO BID PRN 04/28/20 04/28/20 Allergies Allergy/AdvReac Type Severity Reaction Status Date / Time dihydroergotamine Allergy Unknown Unknown Verified 07/02/20 00:15 [From Migranal] gabapentin [From Neurontin] Allergy Itching/Swe Verified 07/02/20 00:15 lling latex Allergy Anaphylaxis Verified 07/02/20 00:15 naproxen [From Naprosyn] Allergy Anaphylaxis Verified 07/02/20 00:15 Penicillins Allergy Anaphylaxis Verified 07/02/20 00:15 prednisone Allergy Swelling Verified 07/02/20 00:15 quetiapine fumarate Allergy Itching, Verified 07/02/20 00:15 [From Seroquel] leg cramps rofecoxib [From Vioxx] Allergy Itching, Verified 07/02/20 00:15 leg cramps terfenadine [From Seldane] Allergy Rash/Hives Verified 07/02/20 00:15 tramadol Allergy Nausea & Verified 07/02/20 00:15 Vomiting/LEG CRAMPS/HEART FLUTTERS calcium carbonate [From DHEA] AdvReac Chest Pain Verified 07/02/20 00:15 calcium phosphate,dibasic AdvReac Chest Pain Verified 07/02/20 00:15 [From DHEA] clindamycin AdvReac muscle Verified 07/02/20 00:15 cramps clonidine AdvReac fast Verified 07/02/20 00:15 heartbeat, migraine dextromethorphan HBr AdvReac face/neck Verified 07/02/20 00:15 [From NyQuil] flushing diazepam [From Valium] AdvReac Nausea & Verified 07/02/20 00:15 Vomiting divalproex sodium AdvReac Nausea & Verified 07/02/20 00:15 [From Depakote] Vomiting doxylamine [From NyQuil] AdvReac face "beet Verified 07/02/20 00:15 red", elevated temp. ibuprofen [From Motrin] AdvReac abdominal Verified 07/02/20 00:15 & muscle cramps indomethacin [From Indocin] AdvReac Abdominal Verified 07/02/20 00:15 Pain,N/V ketorolac tromethamine AdvReac "built up Verified 07/02/20 00:15 [From Toradol] in system", had to be given something to reverse lorazepam [From Ativan] AdvReac Nausea & Verified 07/02/20 00:15 Vomiting metoclopramide HCl AdvReac muscle Verified 07/02/20 00:15 [From Reglan] cramps nortriptyline [From Pamelor] AdvReac Chest Pain Verified 07/02/20 00:15 prasterone (DHEA) [From DHEA] AdvReac Chest Pain Verified 07/02/20 00:15 prochlorperazine AdvReac leg Verified 07/02/20 00:15 [From Compazine] cramping propranolol AdvReac Chest Pain Verified 07/02/20 00:15 pseudoephedrine HCl AdvReac face "beet Verified 07/02/20 00:15 [From NyQuil] red", elevated temp. quetiapine [From Seroquel] AdvReac leg Verified 07/02/20 00:15 cramping sumatriptan [From Imitrex] AdvReac migrane Verified 07/02/20 00:15 sumatriptan succinate AdvReac migrane Verified 07/02/20 00:15 [From Imitrex] topiramate [From Topamax] AdvReac "built up Verified 07/02/20 00:15 in system", had to be given something to reverse trazodone AdvReac "built up Verified 07/02/20 00:15 in system", had to be given something to reverse zolpidem tartrate AdvReac "Became Verified 07/02/20 00:15 [From Ambien] violent with no memory" zonisamide [From Zonegran] AdvReac inability Verified 07/02/20 00:15 to eat artificial sweetener AdvReac SEVERE Uncoded 07/02/20 00:15 MIGRAINE HEADACHE Review of Systems ROS Statement: Those systems with pertinent positive or pertinent negative responses have been documented in the HPI. ROS Other: All systems not noted in ROS Statement are negative. Past Medical History Past Medical History: Hyperlipidemia, Hypertension, Seizure Disorder Additional Past Medical History / Comment(s): Migraines, viral meningitis x3 as a child, 1995, 2000, chronic back pain, nerve blocks 08/2016 and 12/2016. Last seizure 05/26/19, "ABSENT SEIZURES. HX TACHYCARDIA, GB/CIPD, PTSD History of Any Multi-Drug Resistant Organisms: None Reported Past Surgical History: Appendectomy, Section, Cholecystectomy, Hernia Repair, Hysterectomy, Orthopedic Surgery, Tonsillectomy, Tubal Ligation Additional Past Surgical History / Comment(s): Hiatal Hernia, umbilical hernia repair, left rotator cuff repair, bilateral knee scopes, pain clinic procedures- occipital nerve block. abd exploratory sx(endometreosis), 3 abd scopes 1981, 1989, 1991), lumbar puncture. EGD. nerve biopsy, salvalry gland biospy Past Anesthesia/Blood Transfusion Reactions: No Reported Reaction Additional Past Anesthesia/Blood Transfusion Reaction / Comment(s): Claustrophobic Past Psychological History: Anxiety, Bipolar, Panic Disorder, PTSD Smoking Status: Current every day smoker Past Alcohol Use History: None Reported Past Drug Use History: None Reported - Past Family History Mother Family Medical History: Cancer, Dementia, Diabetes Mellitus, GERD/Reflux, Hyperlipidemia, Hypertension, Thyroid Disorder Additional Family Medical History / Comment(s): Quad CABG, cardiac stents, toes ampuated. Father History Unknown: Yes Family Medical History: No Reported History General Exam Limitations: no limitations General appearance: alert, in no apparent distress, other (Sitting with eyes covered on the bed) Head exam: Present: atraumatic, normocephalic, normal inspection Eye exam: Present: normal appearance, PERRL, EOMI. Absent: scleral icterus, conjunctival injection, periorbital swelling ENT exam: Present: normal exam, mucous membranes moist Neck exam: Present: normal inspection, full ROM. Absent: tenderness, meningismus, lymphadenopathy Respiratory exam: Present: normal lung sounds bilaterally. Absent: respiratory distress, wheezes Cardiovascular Exam: Present: regular rate, normal rhythm, normal heart sounds. Absent: systolic murmur, diastolic murmur, rubs, gallop, clicks GI/Abdominal exam: Present: soft, normal bowel sounds. Absent: distended, t enderness, guarding, rebound, rigid Neurological exam: Present: alert, oriented X3, normal gait, other (GCS 15) Course Vital Signs 07/02/20 00:13 Temperature 97.9 F Pulse Rate 96 Respiratory 18 Rate Blood Pressure 150/104 O2 Sat by Pulse 97 Oximetry Medical Decision Making - Medical Decision Making Patient presents for chronic migraine. Symptoms are consistent with previous migraines. There is no worse pain at onset or thunderclap symptomology. Patient is supposed to follow-up with pain management. At this time patient was given IM medications and discharged home in stable condition. Recommended to return to the emergency room for any worsening symptoms and otherwise follow-up with primary care. Disposition Clinical Impression: Headache Disposition: HOME SELF-CARE Condition: Good Instructions (If sedation given, give patient instructions): Acute Headache (ED) Additional Instructions: Please follow up at your scheduled appointment. Return to the emergency department for any worsening symptoms. Is patient prescribed a controlled substance at d/c from ED?: No Referrals: José Reece MD [Primary Care Provider] - 1-2 days Time of Disposition: 01:14
== END 2020-07-02 01:34 | disposition home or self-care (01) ==
LOC: EC 00:01
DX: G43.909 Migraine, unspecified, not intractable, without status migrainosus (principal); I10 Essential (primary) hypertension; E78.5 Hyperlipidemia, unspecified; G89.29 Other chronic pain; M54.9 Dorsalgia, unspecified; G40.909 Epilepsy, unspecified, not intractable, without status epilepticus; F41.9 Anxiety disorder, unspecified; F17.200 Nicotine dependence, unspecified, uncomplicated; Z79.899 Other long term (current) drug therapy; Z88.8 Allergy status to other drugs, medicaments and biological substances; Z91.040 Latex allergy status; Z88.0 Allergy status to penicillin; Z88.6 Allergy status to analgesic agent; Z88.5 Allergy status to narcotic agent; Z88.1 Allergy status to other antibiotic agents; Z91.02 Food additives allergy status
CPT/HCPCS: 99283; 96372 ×2; J2405; J1170

== ENCOUNTER 2020-07-03 23:12 | Emergency (ER) | payer OTHER ==
[2020-07-03 23:33] VITALS: RESP 18; TEMP 98.2
[2020-07-04] MEDS ORDERED: HYDROmorphone 1 MG/ML 1 ML SYRINGE IVP STA (00:37)
[2020-07-04] MEDS ORDERED: diphenhydrAMINE 50 MG/ML 1 ML VIAL IVP STA (00:37)
[2020-07-04] MEDS ORDERED: ONDANSETRON 4 MG/2 ML VIAL IVP STA (00:37)
--- NOTE | 2020-07-04 00:41 | ED ---
General Adult HPI - General Chief complaint: Headache Stated complaint: Migraine and vomiting Source: patient, family Mode of arrival: wheelchair Limitations: no limitations - History of Present Illness Initial comments: 50-year-old female well known to this emergency room for chronic headaches presents to the emergency room for headache 5 days. Patient states this is exactly consistent with previous headaches. Patient denies any thunderclap symptomology or worse pain at onset. Patient denies any neck stiffness. Denies any fevers.patient states the pain is all around her head. Patient does admit to light sensitivity. Patient has no other complaints at this time including shortness of breath, chest pain, abdominal pain, nausea or vomiting, or visual changes. - Related Data Home Medications Medication Instructions Recorded Confirmed Atorvastatin [Lipitor] 40 mg PO HS 04/02/17 04/28/20 Lacosamide [Vimpat] 100 mg PO BID 06/04/17 04/28/20 HYDROcodone/APAP 7.5-325MG [[place] 1 tab PO TID PRN 07/06/17 04/28/20 7.5-325] Albuterol Sulfate [Ventolin HFA] 2 puff INHALATION RT-Q6H PRN 11/07/19 04/28/20 Cyclobenzaprine [Flexeril] 5 mg PO DAILY PRN 01/10/20 04/28/20 Divalproex ER [Depakote ER] 500 mg PO HS 04/28/20 04/28/20 Galcanezumab-Gnlm [Emgality] 120 mg SQ Q30D 04/28/20 04/28/20 Pregabalin [Lyrica] 75 mg PO BID 04/28/20 04/28/20 amLODIPine [Norvasc] 5 mg PO DAILY 04/28/20 04/28/20 hydrOXYzine pamoate [Vistaril] 50 mg PO BID PRN 04/28/20 04/28/20 Allergies Allergy/AdvReac Type Severity Reaction Status Date / Time dihydroergotamine Allergy Unknown Unknown Verified 07/03/20 23:33 [From Migranal] gabapentin [From Neurontin] Allergy Itching/Swe Verified 07/03/20 23:33 lling latex Allergy Anaphylaxis Verified 07/03/20 23:33 naproxen [From Naprosyn] Allergy Anaphylaxis Verified 07/03/20 23:33 Penicillins Allergy Anaphylaxis Verified 07/03/20 23:33 prednisone Allergy Swelling Verified 07/03/20 23:33 quetiapine fumarate Allergy Itching, Verified 07/03/20 23:33 [From Seroquel] leg cramps rofecoxib [From Vioxx] Allergy Itching, Verified 07/03/20 23:33 leg cramps terfenadine [From Seldane] Allergy Rash/Hives Verified 07/03/20 23:33 tramadol Allergy Nausea & Verified 07/03/20 23:33 Vomiting/LEG CRAMPS/HEART FLUTTERS calcium carbonate [From DHEA] AdvReac Chest Pain Verified 07/03/20 23:33 calcium phosphate,dibasic AdvReac Chest Pain Verified 07/03/20 23:33 [From DHEA] clindamycin AdvReac muscle Verified 07/03/20 23:33 cramps clonidine AdvReac fast Verified 07/03/20 23:33 heartbeat, migraine dextromethorphan HBr AdvReac face/neck Verified 07/03/20 23:33 [From NyQuil] flushing diazepam [From Valium] AdvReac Nausea & Verified 07/03/20 23:33 Vomiting divalproex sodium AdvReac Nausea & Verified 07/03/20 23:33 [From Depakote] Vomiting doxylamine [From NyQuil] AdvReac face "beet Verified 07/03/20 23:33 red", elevated temp. ibuprofen [From Motrin] AdvReac abdominal Verified 07/03/20 23:33 & muscle cramps indomethacin [From Indocin] AdvReac Abdominal Verified 07/03/20 23:33 Pain,N/V ketorolac tromethamine AdvReac "built up Verified 07/03/20 23:33 [From Toradol] in system", had to be given something to reverse lorazepam [From Ativan] AdvReac Nausea & Verified 07/03/20 23:33 Vomiting metoclopramide HCl AdvReac muscle Verified 07/03/20 23:33 [From Reglan] cramps nortriptyline [From Pamelor] AdvReac Chest Pain Verified 07/03/20 23:33 prasterone (DHEA) [From DHEA] AdvReac Chest Pain Verified 07/03/20 23:33 prochlorperazine AdvReac leg Verified 07/03/20 23:33 [From Compazine] cramping propranolol AdvReac Chest Pain Verified 07/03/20 23:33 pseudoephedrine HCl AdvReac face "beet Verified 07/03/20 23:33 [From NyQuil] red", elevated temp. quetiapine [From Seroquel] AdvReac leg Verified 07/03/20 23:33 cramping sumatriptan [From Imitrex] AdvReac migrane Verified 07/03/20 23:33 sumatriptan succinate AdvReac migrane Verified 07/03/20 23:33 [From Imitrex] topiramate [From Topamax] AdvReac "built up Verified 07/03/20 23:33 in system", had to be given something to reverse trazodone AdvReac "built up Verified 07/03/20 23:33 in system", had to be given something to reverse zolpidem tartrate AdvReac "Became Verified 07/03/20 23:33 [From Ambien] violent with no memory" zonisamide [From Zonegran] AdvReac inability Verified 07/03/20 23:33 to eat artificial sweetener AdvReac SEVERE Uncoded 07/03/20 23:33 MIGRAINE HEADACHE Review of Systems ROS Statement: Those systems with pertinent positive or pertinent negative responses have been documented in the HPI. ROS Other: All systems not noted in ROS Statement are negative. Past Medical History Past Medical History: Hyperlipidemia, Hypertension, Seizure Disorder Additional Past Medical History / Comment(s): Migraines, viral meningitis x3 as a child, 1995, 2000, chronic back pain, nerve blocks 08/2016 and 12/2016. Last seizure 05/26/19, "ABSENT SEIZURES. HX TACHYCARDIA, GB/CIPD, PTSD History of Any Multi-Drug Resistant Organisms: None Reported Past Surgical History: Appendectomy, Section, Cholecystectomy, Hernia Repair, Hysterectomy, Orthopedic Surgery, Tonsillectomy, Tubal Ligation Additional Past Surgical History / Comment(s): Hiatal Hernia, umbilical hernia repair, left rotator cuff repair, bilateral knee scopes, pain clinic procedures- occipital nerve block. abd exploratory sx(endometreosis), 3 abd scopes 1981, 1989, 1991), lumbar puncture. EGD. nerve biopsy, salvalry gland biospy Past Anesthesia/Blood Transfusion Reactions: No Reported Reaction Additional Past Anesthesia/Blood Transfusion Reaction / Comment(s): Claustrophobic Past Psychological History: Anxiety, Bipolar, Panic Disorder, PTSD Smoking Status: Current every day smoker Past Alcohol Use History: None Reported Past Drug Use History: None Reported - Past Family History Mother Family Medical History: Cancer, Dementia, Diabetes Mellitus, GERD/Reflux, Hyperlipidemia, Hypertension, Thyroid Disorder Additional Family Medical History / Comment(s): Quad CABG, cardiac stents, toes ampuated. Father History Unknown: Yes Family Medical History: No Reported History General Exam Limitations: no limitations General appearance: alert, in no apparent distress Head exam: Present: atraumatic, normocephalic, normal inspection Eye exam: Present: normal appearance, PERRL, EOMI. Absent: scleral icterus, conjunctival injection, periorbital swelling ENT exam: Present: normal exam, mucous membranes moist Neck exam: Present: normal inspection, full ROM. Absent: tenderness, meningismus, lymphadenopathy Respiratory exam: Absent: respiratory distress Neurological exam: Present: alert, oriented X3, normal gait Course Vital Signs 07/03/20 23:31 Temperature 98.2 F Pulse Rate 94 Respiratory 18 Rate Blood Pressure 146/83 O2 Sat by Pulse 97 Oximetry Medical Decision Making - Medical Decision Making Patient presents with chronic migraine. No red flag symptoms. Patient was given medication and discharged home. Disposition Clinical Impression: Headache Disposition: HOME SELF-CARE Condition: Good Instructions (If sedation given, give patient instructions): Acute Headache (ED) Additional Instructions: Please follow up with primary care. Return to the emergency room for any worsening symptoms. Is patient prescribed a controlled substance at d/c from ED?: No Referrals: José Reece MD [Primary Care Provider] - 1-2 days Time of Disposition: 00:40
[2020-07-04 02:21] VITALS: BP 140/96; PULSE 97
== END 2020-07-04 02:21 | disposition home or self-care (01) ==
LOC: EC 23:12
DX: R51.9 Headache, unspecified (principal); R11.2 Nausea with vomiting, unspecified; F41.9 Anxiety disorder, unspecified; F17.200 Nicotine dependence, unspecified, uncomplicated; I10 Essential (primary) hypertension; E78.5 Hyperlipidemia, unspecified; G40.909 Epilepsy, unspecified, not intractable, without status epilepticus; Z88.0 Allergy status to penicillin; Z79.899 Other long term (current) drug therapy
CPT/HCPCS: 99283; 96374; 96375 ×2; J1200; J2405; J1170

== ENCOUNTER 2020-07-11 21:41 | Emergency (ER) | payer OTHER ==
[2020-07-11 22:59] VITALS: BP 115/79; PULSE 104; RESP 20; TEMP 98.2
[2020-07-11] MEDS ORDERED: HYDROmorphone 1 MG/ML 1 ML SYRINGE IM STA (23:23)
[2020-07-11] MEDS ORDERED: ONDANSETRON 4 MG/2 ML VIAL IM STA (23:25)
--- NOTE | 2020-07-11 23:25 | ED ---
Headache HPI - General Chief Complaint: Headache Stated Complaint: Vomiting Mode of arrival: wheelchair Limitations: no limitations - History of Present Illness Initial Comments: 43-year-old male presents to emergency department with a chief complaint of headache. Patient reports this is her typical migraine headache that has been ongoing for the past several days. She reports nausea and vomiting. States this was a gradual onset headache and not the worst headache of her life. - Related Data Home Medications Medication Instructions Recorded Confirmed Atorvastatin [Lipitor] 40 mg PO HS 04/02/17 04/28/20 Lacosamide [Vimpat] 100 mg PO BID 06/04/17 04/28/20 HYDROcodone/APAP 7.5-325MG [[place] 1 tab PO TID PRN 07/06/17 04/28/20 7.5-325] Albuterol Sulfate [Ventolin HFA] 2 puff INHALATION RT-Q6H PRN 11/07/19 04/28/20 Cyclobenzaprine [Flexeril] 5 mg PO DAILY PRN 01/10/20 04/28/20 Divalproex ER [Depakote ER] 500 mg PO HS 04/28/20 04/28/20 Galcanezumab-Gnlm [Emgality] 120 mg SQ Q30D 04/28/20 04/28/20 Pregabalin [Lyrica] 75 mg PO BID 04/28/20 04/28/20 amLODIPine [Norvasc] 5 mg PO DAILY 04/28/20 04/28/20 hydrOXYzine pamoate [Vistaril] 50 mg PO BID PRN 04/28/20 04/28/20 Allergies Allergy/AdvReac Type Severity Reaction Status Date / Time dihydroergotamine Allergy Unknown Unknown Verified 07/11/20 22:59 [From Migranal] gabapentin [From Neurontin] Allergy Itching/Swe Verified 07/11/20 22:59 lling latex Allergy Anaphylaxis Verified 07/11/20 22:59 naproxen [From Naprosyn] Allergy Anaphylaxis Verified 07/11/20 22:59 Penicillins Allergy Anaphylaxis Verified 07/11/20 22:59 prednisone Allergy Swelling Verified 07/11/20 22:59 quetiapine fumarate Allergy Itching, Verified 07/11/20 22:59 [From Seroquel] leg cramps rofecoxib [From Vioxx] Allergy Itching, Verified 07/11/20 22:59 leg cramps terfenadine [From Seldane] Allergy Rash/Hives Verified 07/11/20 22:59 tramadol Allergy Nausea & Verified 07/11/20 22:59 Vomiting/LEG CRAMPS/HEART FLUTTERS calcium carbonate [From DHEA] AdvReac Chest Pain Verified 07/11/20 22:59 calcium phosphate,dibasic AdvReac Chest Pain Verified 07/11/20 22:59 [From DHEA] clindamycin AdvReac muscle Verified 07/11/20 22:59 cramps clonidine AdvReac fast Verified 07/11/20 22:59 heartbeat, migraine dextromethorphan HBr AdvReac face/neck Verified 07/11/20 22:59 [From NyQuil] flushing diazepam [From Valium] AdvReac Nausea & Verified 07/11/20 22:59 Vomiting divalproex sodium AdvReac Nausea & Verified 07/11/20 22:59 [From Depakote] Vomiting doxylamine [From NyQuil] AdvReac face "beet Verified 07/11/20 22:59 red", elevated temp. ibuprofen [From Motrin] AdvReac abdominal Verified 07/11/20 22:59 & muscle cramps indomethacin [From Indocin] AdvReac Abdominal Verified 07/11/20 22:59 Pain,N/V ketorolac tromethamine AdvReac "built up Verified 07/11/20 22:59 [From Toradol] in system", had to be given something to reverse lorazepam [From Ativan] AdvReac Nausea & Verified 07/11/20 22:59 Vomiting metoclopramide HCl AdvReac muscle Verified 07/11/20 22:59 [From Reglan] cramps nortriptyline [From Pamelor] AdvReac Chest Pain Verified 07/11/20 22:59 prasterone (DHEA) [From DHEA] AdvReac Chest Pain Verified 07/11/20 22:59 prochlorperazine AdvReac leg Verified 07/11/20 22:59 [From Compazine] cramping propranolol AdvReac Chest Pain Verified 07/11/20 22:59 pseudoephedrine HCl AdvReac face "beet Verified 07/11/20 22:59 [From NyQuil] red", elevated temp. quetiapine [From Seroquel] AdvReac leg Verified 07/11/20 22:59 cramping sumatriptan [From Imitrex] AdvReac migrane Verified 07/11/20 22:59 sumatriptan succinate AdvReac migrane Verified 07/11/20 22:59 [From Imitrex] topiramate [From Topamax] AdvReac "built up Verified 07/11/20 22:59 in system", had to be given something to reverse trazodone AdvReac "built up Verified 07/11/20 22:59 in system", had to be given something to reverse zolpidem tartrate AdvReac "Became Verified 07/11/20 22:59 [From Ambien] violent with no memory" zonisamide [From Zonegran] AdvReac inability Verified 07/11/20 22:59 to eat artificial sweetener AdvReac SEVERE Uncoded 07/11/20 22:59 MIGRAINE HEADACHE Review of Systems ROS Statement: Those systems with pertinent positive or pertinent negative responses have been documented in the HPI. ROS Other: All systems not noted in ROS Statement are negative. Past Medical History Past Medical History: Hyperlipidemia, Hypertension, Seizure Disorder Additional Past Medical History / Comment(s): Migraines, viral meningitis x3 as a child, 1995, 2000, chronic back pain, nerve blocks 08/2016 and 12/2016. Last seizure 05/26/19, "ABSENT SEIZURES. HX TACHYCARDIA, GB/CIPD, PTSD History of Any Multi-Drug Resistant Organisms: None Reported Past Surgical History: Appendectomy, Section, Cholecystectomy, Hernia R epair, Hysterectomy, Orthopedic Surgery, Tonsillectomy, Tubal Ligation Additional Past Surgical History / Comment(s): Hiatal Hernia, umbilical hernia repair, left rotator cuff repair, bilateral knee scopes, pain clinic procedures- occipital nerve block. abd exploratory sx(endometreosis), 3 abd scopes 1981, 1989, 1991), lumbar puncture. EGD. nerve biopsy, salvalry gland biospy Past Anesthesia/Blood Transfusion Reactions: No Reported Reaction Additional Past Anesthesia/Blood Transfusion Reaction / Comment(s): Claustrophob ic Past Psychological History: Anxiety, Bipolar, Panic Disorder, PTSD Smoking Status: Current every day smoker Past Alcohol Use History: None Reported Past Drug Use History: None Reported - Past Family History Mother Family Medical History: Cancer, Dementia, Diabetes Mellitus, GERD/Reflux, Hyperlipidemia, Hypertension, Thyroid Disorder Additional Family Medical History / Comment(s): Quad CABG, cardiac stents, toes ampuated. Father History Unknown: Yes Family Medical History: No Reported History General Exam Limitations: no limitations General appearance: alert, in no apparent distress Head exam: Present: atraumatic, normocephalic, normal inspection Eye exam: Present: normal appearance, PERRL, EOMI Pupils: Present: normal accommodation ENT exam: Present: normal exam, normal oropharynx, mucous membranes moist Neck exam: Present: normal inspection, full ROM. Absent: tenderness Respiratory exam: Present: normal lung sounds bilaterally. Absent: respiratory distress, wheezes, rales Cardiovascular Exam: Present: regular rate, normal rhythm, normal heart sounds Extremities exam: Present: normal inspection, full ROM, normal capillary refill. Absent: tenderness Back exam: Present: normal inspection, full ROM. Absent: tenderness Neurological exam: Present: alert, oriented X3, normal gait Psychiatric exam: Present: normal affect, normal mood Skin exam: Present: warm, dry, intact, normal color Course Vital Signs 07/11/20 22:57 Temperature 98.2 F Pulse Rate 104 H Respiratory 20 Rate Blood Pressure 115/79 O2 Sat by Pulse 99 Oximetry Medical Decision Making - Medical Decision Making 50-year-old female with history of migraines presents emergency with chief complaint of migraine. Patient is well-known to the emergency department for frequent visits. Patient is only requesting analgesia and no further laboratory workup or medications. Patient given Dilaudid and Zofran IM. On reevaluation, patient reports improvement in symptoms and wants to be discharged. Case discussed with physician. Disposition Clinical Impression: Headache Disposition: HOME SELF-CARE Condition: Stable Instructions (If sedation given, give patient instructions): Acute Headache (ED) Additional Instructions: Please return to the Emergency Department if symptoms worsen or any other concerns. Is patient prescribed a controlled substance at d/c from ED?: No Referrals: José Reece MD [Primary Care Provider] - 1-2 days Time of Disposition: 23:25
== END 2020-07-11 23:39 | disposition home or self-care (01) ==
LOC: EC 21:41
DX: G43.909 Migraine, unspecified, not intractable, without status migrainosus (principal); I10 Essential (primary) hypertension; E78.5 Hyperlipidemia, unspecified; F41.9 Anxiety disorder, unspecified; F31.9 Bipolar disorder, unspecified; G40.909 Epilepsy, unspecified, not intractable, without status epilepticus; F17.200 Nicotine dependence, unspecified, uncomplicated; Z79.899 Other long term (current) drug therapy; Z88.0 Allergy status to penicillin
CPT/HCPCS: 99283; 96372 ×2; J2405; J1170

== ENCOUNTER 2020-07-14 23:54 | Emergency (ER) | payer OTHER ==
--- NOTE | 2020-07-15 02:38 | ED ---
Headache HPI - General Chief Complaint: Headache Stated Complaint: Migraine, vomiting Time Seen by Provider: 07/15/20 01:46 Mode of arrival: ambulatory Limitations: no limitations - History of Present Illness Initial Comments: 50-year-old female patient presents to the emergency department today for evaluation of migraine headache and vomiting. She has a history of migraines an d is a frequent user of the emergency department for symptom relief. Patient states she is taking emgality at home but has no breakthrough medications at home. She will soon has an appointment at the migraine clinic at the [facility]. Patient states that she's been unable to keep down any food or fluids. Denies any diarrhea or abdominal pain. Denies fever or chills. Denies any new symptoms with this migraine. Denies any numbness, tingling, weakness to the extremities. Denies dizziness or weakness. Patient denies any recent rash, fever, chills, cough, shortness of breath, chest pain, diarrhea, constipation, back pain, hematuria, dysuria, urinary urgency, urinary frequency, or any other complaints. - Related Data Home Medications Medication Instructions Recorded Confirmed Atorvastatin [Lipitor] 40 mg PO HS 04/02/17 04/28/20 Lacosamide [Vimpat] 100 mg PO BID 06/04/17 04/28/20 HYDROcodone/APAP 7.5-325MG [[place] 1 tab PO TID PRN 07/06/17 04/28/20 7.5-325] Albuterol Sulfate [Ventolin HFA] 2 puff INHALATION RT-Q6H PRN 11/07/19 04/28/20 Cyclobenzaprine [Flexeril] 5 mg PO DAILY PRN 01/10/20 04/28/20 Divalproex ER [Depakote ER] 500 mg PO HS 04/28/20 04/28/20 Galcanezumab-Gnlm [Emgality] 120 mg SQ Q30D 04/28/20 04/28/20 Pregabalin [Lyrica] 75 mg PO BID 04/28/20 04/28/20 amLODIPine [Norvasc] 5 mg PO DAILY 04/28/20 04/28/20 hydrOXYzine pamoate [Vistaril] 50 mg PO BID PRN 04/28/20 04/28/20 Allergies Allergy/AdvReac Type Severity Reaction Status Date / Time dihydroergotamine Allergy Unknown Unknown Verified 07/15/20 00:06 [From Migranal] gabapentin [From Neurontin] Allergy Itching/Swe Verified 07/15/20 00:06 lling latex Allergy Anaphylaxis Verified 07/15/20 00:06 naproxen [From Naprosyn] Allergy Anaphylaxis Verified 07/15/20 00:06 Penicillins Allergy Anaphylaxis Verified 07/15/20 00:06 prednisone Allergy Swelling Verified 07/15/20 00:06 quetiapine fumarate Allergy Itching, Verified 07/15/20 00:06 [From Seroquel] leg cramps rofecoxib [From Vioxx] Allergy Itching, Verified 07/15/20 00:06 leg cramps terfenadine [From Seldane] Allergy Rash/Hives Verified 07/15/20 00:06 tramadol Allergy Nausea & Verified 07/15/20 00:06 Vomiting/LEG CRAMPS/HEART FLUTTERS calcium carbonate [From DHEA] AdvReac Chest Pain Verified 07/15/20 00:06 calcium phosphate,dibasic AdvReac Chest Pain Verified 07/15/20 00:06 [From DHEA] clindamycin AdvReac muscle Verified 07/15/20 00:06 cramps clonidine AdvReac fast Verified 07/15/20 00:06 heartbeat, migraine dextromethorphan HBr AdvReac face/neck Verified 07/15/20 00:06 [From NyQuil] flushing diazepam [From Valium] AdvReac Nausea & Verified 07/15/20 00:06 Vomiting divalproex sodium AdvReac Nausea & Verified 07/15/20 00:06 [From Depakote] Vomiting doxylamine [From NyQuil] AdvReac face "beet Verified 07/15/20 00:06 red", elevated temp. ibuprofen [From Motrin] AdvReac abdominal Verified 07/15/20 00:06 & muscle cramps indomethacin [From Indocin] AdvReac Abdominal Verified 07/15/20 00:06 Pain,N/V ketorolac tromethamine AdvReac "built up Verified 07/15/20 00:06 [From Toradol] in system", had to be given something to reverse lorazepam [From Ativan] AdvReac Nausea & Verified 07/15/20 00:06 Vomiting metoclopramide HCl AdvReac muscle Verified 07/15/20 00:06 [From Reglan] cramps nortriptyline [From Pamelor] AdvReac Chest Pain Verified 07/15/20 00:06 prasterone (DHEA) [From DHEA] AdvReac Chest Pain Verified 07/15/20 00:06 prochlorperazine AdvReac leg Verified 07/15/20 00:06 [From Compazine] cramping propranolol AdvReac Chest Pain Verified 07/15/20 00:06 pseudoephedrine HCl AdvReac face "beet Verified 07/15/20 00:06 [From NyQuil] red", elevated temp. quetiapine [From Seroquel] AdvReac leg Verified 07/15/20 00:06 cramping sumatriptan [From Imitrex] AdvReac migrane Verified 07/15/20 00:06 sumatriptan succinate AdvReac migrane Verified 07/15/20 00:06 [From Imitrex] topiramate [From Topamax] AdvReac "built up Verified 07/15/20 00:06 in system", had to be given something to reverse trazodone AdvReac "built up Verified 07/15/20 00:06 in system", had to be given something to reverse zolpidem tartrate AdvReac "Became Verified 07/15/20 00:06 [From Ambien] violent with no memory" zonisamide [From Zonegran] AdvReac inability Verified 07/15/20 00:06 to eat artificial sweetener AdvReac SEVERE Uncoded 07/15/20 00:06 MIGRAINE HEADACHE Review of Systems ROS Statement: Those systems with pertinent positive or pertinent negative responses have been documented in the HPI. ROS Other: All systems not noted in ROS Statement are negative. Past Medical History Past Medical History: Hyperlipidemia, Hypertension, Seizure Disorder Additional Past Medical History / Comment(s): Migraines, viral meningitis x3 as a child, 1995, 2000, chronic back pain, nerve blocks 08/2016 and 12/2016. Last seizure 05/26/19, "ABSENT SEIZURES. HX TACHYCARDIA, GB/CIPD, PTSD History of Any Multi-Drug Resistant Organisms: None Reported Past Surgical History: Appendectomy, Section, Cholecystectomy, Hernia Repair, Hysterectomy, Orthopedic Surgery, Tonsillectomy, Tubal Ligation Additional Past Surgical History / Comment(s): Hiatal Hernia, umbilical hernia repair, left rotator cuff repair, bilateral knee scopes, pain clinic procedures- occipital nerve block. abd exploratory sx(endometreosis), 3 abd scopes 1981, 1989, 1991), lumbar puncture. EGD. nerve biopsy, salvalry gland biospy Past Anesthesia/Blood Transfusion Reactions: No Reported Reaction Additional Past Anesthesia/Blood Transfusion Reaction / Comment(s): Claustrophobic Past Psychological History: Anxiety, Bipolar, Panic Disorder, PTSD Smoking Status: Current every day smoker Past Alcohol Use History: None Reported Past Drug Use History: None Reported - Past Family History Mother Family Medical History: Cancer, Dementia, Diabetes Mellitus, GERD/Reflux, Hyperlipidemia, Hypertension, Thyroid Disorder Additional Family Medical History / Comment(s): Quad CABG, cardiac stents, toes ampuated. Father History Unknown: Yes Family Medical History: No Reported History General Exam Limitations: no limitations General appearance: alert, in no apparent distress, other (This is a well- developed, well-nourished adult female patient in no acute distress.) Eye exam: Present: normal appearance, PERRL, EOMI. Absent: scleral icterus, conjunctival injection, nystagmus, periorbital swelling ENT exam: Present: normal exam, normal oropharynx Respiratory exam: Present: normal lung sounds bilaterally. Absent: respiratory distress, wheezes, rales, rhonchi, stridor Cardiovascular Exam: Present: regular rate, normal rhythm, normal heart sounds. Absent: systolic murmur, diastolic murmur, rubs, gallop, clicks GI/Abdominal exam: Present: soft, normal bowel sounds. Absent: distended, tenderness, guarding, rebound, rigid Neurological exam: Present: alert, oriented X3, CN II-XII intact Expanded Speech: Present: fluid speech Cranial nerves: EOM's Intact: Normal, Nystagmus: Normal Motor strength exam: RUE: 5, LUE: 5, RLE: 5, LLE: 5 Course Vital Signs 07/15/20 07/15/20 00:02 03:19 Temperature 98.1 F 98.7 F Pulse Rate 98 70 Respiratory 20 17 Rate Blood Pressure 128/94 159/106 O2 Sat by Pulse 98 96 Oximetry Medical Decision Making - Medical Decision Making 50-year-old female patient presents to the emergency department today for evaluation of migraine headache and vomiting. Physical examination is unremarkable. She is neurologically intact with no focal deficits. She does have a history of migraines, no new symptoms with this episode. She'll be given IM doses of medication and discharged home to follow-up with her primary care physician for recheck in 1-2 days. Return parameters were discussed in detail. She verbalizes understanding and agrees with this plan. My attending is Dr. Mclaughlin. Disposition Clinical Impression: Migraine headache Disposition: HOME SELF-CARE Condition: Good Instructions (If sedation given, give patient instructions): Migraine Headache (ED) Additional Instructions: Start with clear liquids advance as tolerated. Follow-up the primary care physician for recheck in 1-2 days. Return to the emergency department for any new, worsening, or concerning symptoms. Is patient prescribed a controlled substance at d/c from ED?: No Referrals: José Reece MD [Primary Care Provider] - 1-2 days Time of Disposition: 02:38
[2020-07-15] MEDS: HYDROmorphone 1 MG/ML 1 ML SYRINGE IM STA (02:58)
[2020-07-15] MEDS: ONDANSETRON 4 MG/2 ML VIAL IM STA (02:58)
[2020-07-15 03:20] VITALS: BP 159/106; PULSE 70; RESP 17; TEMP 98.7
== END 2020-07-15 02:53 | disposition home or self-care (01) ==
LOC: EC 23:54
DX: G43.909 Migraine, unspecified, not intractable, without status migrainosus (principal); G40.909 Epilepsy, unspecified, not intractable, without status epilepticus; E78.5 Hyperlipidemia, unspecified; I10 Essential (primary) hypertension; F41.9 Anxiety disorder, unspecified; F31.9 Bipolar disorder, unspecified; F17.200 Nicotine dependence, unspecified, uncomplicated
CPT/HCPCS: 99283; 96372 ×2; J2405; J1170

== ENCOUNTER 2020-07-18 16:08 | Emergency (ER) | payer OTHER ==
[2020-07-18 16:26] VITALS: BP 123/89; PULSE 100; RESP 20; TEMP 97.7
[2020-07-18] MEDS ORDERED: HYDROmorphone 1 MG/ML 1 ML SYRINGE IM STA (17:17)
--- NOTE | 2020-07-18 17:43 | ED ---
Headache HPI - General Chief Complaint: Headache Stated Complaint: Migraine Time Seen by Provider: 07/18/20 16:56 Mode of arrival: wheelchair Limitations: no limitations - History of Present Illness Initial Comments: 50-year-old female with history of migraines presents to the emergency department with a chief complaint of migraine. Patient reports migraine started several days ago and it is not going away. Reports left-sided headache with photosensitivity, nausea or vomiting. Patient reports taking her medication home with no improvement in symptoms. She denies any gait instability, once the weakness and paresthesias. Denies any chest pain or shortness of breath. Denies any fevers chills or neck stiffness. - Related Data Home Medications Medication Instructions Recorded Confirmed Atorvastatin [Lipitor] 40 mg PO HS 04/02/17 04/28/20 Lacosamide [Vimpat] 100 mg PO BID 06/04/17 04/28/20 HYDROcodone/APAP 7.5-325MG [[place] 1 tab PO TID PRN 07/06/17 04/28/20 7.5-325] Albuterol Sulfate [Ventolin HFA] 2 puff INHALATION RT-Q6H PRN 11/07/19 04/28/20 Cyclobenzaprine [Flexeril] 5 mg PO DAILY PRN 01/10/20 04/28/20 Divalproex ER [Depakote ER] 500 mg PO HS 04/28/20 04/28/20 Galcanezumab-Gnlm [Emgality] 120 mg SQ Q30D 04/28/20 04/28/20 Pregabalin [Lyrica] 75 mg PO BID 04/28/20 04/28/20 amLODIPine [Norvasc] 5 mg PO DAILY 04/28/20 04/28/20 hydrOXYzine pamoate [Vistaril] 50 mg PO BID PRN 04/28/20 04/28/20 Allergies Allergy/AdvReac Type Severity Reaction Status Date / Time dihydroergotamine Allergy Unknown Unknown Verified 07/18/20 16:26 [From Migranal] gabapentin [From Neurontin] Allergy Itching/Swe Verified 07/18/20 16:26 lling latex Allergy Anaphylaxis Verified 07/18/20 16:26 naproxen [From Naprosyn] Allergy Anaphylaxis Verified 07/18/20 16:26 Penicillins Allergy Anaphylaxis Verified 07/18/20 16:26 prednisone Allergy Swelling Verified 07/18/20 16:26 quetiapine fumarate Allergy Itching, Verified 07/18/20 16:26 [From Seroquel] leg cramps rofecoxib [From Vioxx] Allergy Itching, Verified 07/18/20 16:26 leg cramps terfenadine [From Seldane] Allergy Rash/Hives Verified 07/18/20 16:26 tramadol Allergy Nausea & Verified 07/18/20 16:26 Vomiting/LEG CRAMPS/HEART FLUTTERS calcium carbonate [From DHEA] AdvReac Chest Pain Verified 07/18/20 16:26 calcium phosphate,dibasic AdvReac Chest Pain Verified 07/18/20 16:26 [From DHEA] clindamycin AdvReac muscle Verified 07/18/20 16:26 cramps clonidine AdvReac fast Verified 07/18/20 16:26 heartbeat, migraine dextromethorphan HBr AdvReac face/neck Verified 07/18/20 16:26 [From NyQuil] flushing diazepam [From Valium] AdvReac Nausea & Verified 07/18/20 16:26 Vomiting divalproex sodium AdvReac Nausea & Verified 07/18/20 16:26 [From Depakote] Vomiting doxylamine [From NyQuil] AdvReac face "beet Verified 07/18/20 16:26 red", elevated temp. ibuprofen [From Motrin] AdvReac abdominal Verified 07/18/20 16:26 & muscle cramps indomethacin [From Indocin] AdvReac Abdominal Verified 07/18/20 16:26 Pain,N/V ketorolac tromethamine AdvReac "built up Verified 07/18/20 16:26 [From Toradol] in system", had to be given something to reverse lorazepam [From Ativan] AdvReac Nausea & Verified 07/18/20 16:26 Vomiting metoclopramide HCl AdvReac muscle Verified 07/18/20 16:26 [From Reglan] cramps nortriptyline [From Pamelor] AdvReac Chest Pain Verified 07/18/20 16:26 prasterone (DHEA) [From DHEA] AdvReac Chest Pain Verified 07/18/20 16:26 prochlorperazine AdvReac leg Verified 07/18/20 16:26 [From Compazine] cramping propranolol AdvReac Chest Pain Verified 07/18/20 16:26 pseudoephedrine HCl AdvReac face "beet Verified 07/18/20 16:26 [From NyQuil] red", elevated temp. quetiapine [From Seroquel] AdvReac leg Verified 07/18/20 16:26 cramping sumatriptan [From Imitrex] AdvReac migrane Verified 07/18/20 16:26 sumatriptan succinate AdvReac migrane Verified 07/18/20 16:26 [From Imitrex] topiramate [From Topamax] AdvReac "built up Verified 07/18/20 16:26 in system", had to be given something to reverse trazodone AdvReac "built up Verified 07/18/20 16:26 in system", had to be given something to reverse zolpidem tartrate AdvReac "Became Verified 07/18/20 16:26 [From Ambien] violent with no memory" zonisamide [From Zonegran] AdvReac inability Verified 07/18/20 16:26 to eat artificial sweetener AdvReac SEVERE Uncoded 07/18/20 16:26 MIGRAINE HEADACHE Review of Systems ROS Statement: Those systems with pertinent positive or pertinent negative responses have been documented in the HPI. ROS Other: All systems not noted in ROS Statement are negative. Past Medical History Past Medical History: Hyperlipidemia, Hypertension, Seizure Disorder Additional Past Medical History / Comment(s): Migraines, viral meningitis x3 as a child, 1995, 2000, chronic back pain, nerve blocks 08/2016 and 12/2016. Last seizure 05/26/19, "ABSENT SEIZURES. HX TACHYCARDIA, GB/CIPD, PTSD History of Any Multi-Drug Resistant Organisms: None Reported Past Surgical History: Appendectomy, Section, Cholecystectomy, Hernia Repair, Hysterectomy, Orthopedic Surgery, Tonsillectomy, Tubal Ligation Additional Past Surgical History / Comment(s): Hiatal Hernia, umbilical hernia repair, left rotator cuff repair, bilateral knee scopes, pain clinic procedures- occipital nerve block. abd exploratory sx(endometreosis), 3 abd scopes 1981, 1989, 1991), lumbar puncture. EGD. nerve biopsy, salvalry gland biospy Past Anesthesia/Blood Transfusion Reactions: No Reported Reaction Additional Past Anesthesia/Blood Transfusion Reaction / Comment(s): Claustrophobic Past Psychological History: Anxiety, Bipolar, Panic Disorder, PTSD Smoking Status: Current every day smoker Past Alcohol Use History: None Reported Past Drug Use History: None Reported - Past Family History Mother Family Medical History: Cancer, Dementia, Diabetes Mellitus, GERD/Reflux, Hyperlipidemia, Hypertension, Thyroid Disorder Additional Family Medical History / Comment(s): Quad CABG, cardiac stents, toes ampuated. Father History Unknown: Yes Family Medical History: No Reported History General Exam Limitations: no limitations General appearance: alert, in no apparent distress Head exam: Present: atraumatic, normocephalic, normal inspection Eye exam: Present: normal appearance, PERRL, EOMI Pupils: Present: normal accommodation ENT exam: Present: normal exam, normal oropharynx, mucous membranes moist. Absent: TM's normal bilaterally, normal external ear exam Neck exam: Present: normal inspection, full ROM. Absent: tenderness Respiratory exam: Present: normal lung sounds bilaterally. Absent: respiratory distress Cardiovascular Exam: Present: regular rate, normal rhythm, normal heart sounds GI/Abdominal exam: Present: soft. Absent: distended, tenderness, guarding, rebound Extremities exam: Present: normal inspection, full ROM, normal capillary refill, other (Palpable DP and PT bilaterally.). Absent: tenderness, pedal edema, joint swelling, calf tenderness Back exam: Present: normal inspection, full ROM. Absent: tenderness, CVA tenderness (R), CVA tenderness (L) Neurological exam: Present: alert, oriented X3, CN II-XII intact, normal gait Psychiatric exam: Present: normal affect, normal mood Skin exam: Present: warm, dry, intact, normal color Course Vital Signs 07/18/20 16:24 Temperature 97.7 F Pulse Rate 100 Respiratory 20 Rate Blood Pressure 123/89 O2 Sat by Pulse 98 Oximetry Medical Decision Making - Medical Decision Making 50-year-old female with history of migraines presents emergency Department with a chief complaint of migraine. On physical examination, no focal deficits. Patient well-known to the emergency department for her frequent visits. Patient was offered laboratory workup, she declined. She was also offered imaging, she declined. Patient was given analgesia and will be discharged. Advised to return if symptoms worsen. Case discussed with Dr. Plascencia. Disposition Clinical Impression: Headache Disposition: HOME SELF-CARE Condition: Stable Instructions (If sedation given, give patient instructions): Acute Headache (ED) Additional Instructions: Please return to the Emergency Department if symptoms worsen or any other concerns. Is patient prescribed a controlled substance at d/c from ED?: No Referrals: José Reece MD [Primary Care Provider] - 1-2 days Time of Disposition: 17:43
== END 2020-07-18 18:00 | disposition home or self-care (01) ==
LOC: EC 16:08
DX: G43.909 Migraine, unspecified, not intractable, without status migrainosus (principal); I10 Essential (primary) hypertension; E78.5 Hyperlipidemia, unspecified; G40.909 Epilepsy, unspecified, not intractable, without status epilepticus; F41.9 Anxiety disorder, unspecified; F31.9 Bipolar disorder, unspecified; F17.200 Nicotine dependence, unspecified, uncomplicated; Z79.899 Other long term (current) drug therapy; Z88.0 Allergy status to penicillin
CPT/HCPCS: 99283; 96372; J1170

== ENCOUNTER 2020-07-22 23:34 | Emergency (ER) | payer OTHER ==
[2020-07-22 23:38] VITALS: TEMP 97.9
[2020-07-23] MEDS ORDERED: HYDROmorphone 1 MG/ML 1 ML SYRINGE IM STA (00:27)
[2020-07-23] MEDS ORDERED: HYDROmorphone 0.5 MG/0.5 ML SYRINGE IM STA (00:46)
[2020-07-23] MEDS ORDERED: ONDANSETRON 4 MG/2 ML VIAL IM STA (00:46)
--- NOTE | 2020-07-23 00:47 | ED ---
Headache HPI - General Chief Complaint: Headache Stated Complaint: Headache, nausea Time Seen by Provider: 07/22/20 23:40 Mode of arrival: ambulatory Limitations: no limitations - History of Present Illness Initial Comments: 50-year-old female with history of headaches presents to emergency department with a chief complaint of a headache. Patient reports his been ongoing for the past several days. States it was a gradual onset and not the worst headache of her life. Patient reports photosensitivity, nausea with multiple episodes of nonbilious and nonbloody vomiting. Patient reports she attempted [id number] analgesics with no significant improvement symptoms. She denies visual changes, one-sided weakness paresthesias, shortness breath or chest pain. - Related Data Home Medications Medication Instructions Recorded Confirmed Atorvastatin [Lipitor] 40 mg PO HS 04/02/17 04/28/20 Lacosamide [Vimpat] 100 mg PO BID 06/04/17 04/28/20 HYDROcodone/APAP 7.5-325MG [[place] 1 tab PO TID PRN 07/06/17 04/28/20 7.5-325] Albuterol Sulfate [Ventolin HFA] 2 puff INHALATION RT-Q6H PRN 11/07/19 04/28/20 Cyclobenzaprine [Flexeril] 5 mg PO DAILY PRN 01/10/20 04/28/20 Divalproex ER [Depakote ER] 500 mg PO HS 04/28/20 04/28/20 Galcanezumab-Gnlm [Emgality] 120 mg SQ Q30D 04/28/20 04/28/20 Pregabalin [Lyrica] 75 mg PO BID 04/28/20 04/28/20 amLODIPine [Norvasc] 5 mg PO DAILY 04/28/20 04/28/20 hydrOXYzine pamoate [Vistaril] 50 mg PO BID PRN 04/28/20 04/28/20 Allergies Allergy/AdvReac Type Severity Reaction Status Date / Time dihydroergotamine Allergy Unknown Unknown Verified 07/22/20 23:38 [From Migranal] gabapentin [From Neurontin] Allergy Itching/Swe Verified 07/22/20 23:38 lling latex Allergy Anaphylaxis Verified 07/22/20 23:38 naproxen [From Naprosyn] Allergy Anaphylaxis Verified 07/22/20 23:38 Penicillins Allergy Anaphylaxis Verified 07/22/20 23:38 prednisone Allergy Swelling Verified 07/22/20 23:38 quetiapine fumarate Allergy Itching, Verified 07/22/20 23:38 [From Seroquel] leg cramps rofecoxib [From Vioxx] Allergy Itching, Verified 07/22/20 23:38 leg cramps terfenadine [From Seldane] Allergy Rash/Hives Verified 07/22/20 23:38 tramadol Allergy Nausea & Verified 07/22/20 23:38 Vomiting/LEG CRAMPS/HEART FLUTTERS calcium carbonate [From DHEA] AdvReac Chest Pain Verified 07/22/20 23:38 calcium phosphate,dibasic AdvReac Chest Pain Verified 07/22/20 23:38 [From DHEA] clindamycin AdvReac muscle Verified 07/22/20 23:38 cramps clonidine AdvReac fast Verified 07/22/20 23:38 heartbeat, migraine dextromethorphan HBr AdvReac face/neck Verified 07/22/20 23:38 [From NyQuil] flushing diazepam [From Valium] AdvReac Nausea & Verified 07/22/20 23:38 Vomiting divalproex sodium AdvReac Nausea & Verified 07/22/20 23:38 [From Depakote] Vomiting doxylamine [From NyQuil] AdvReac face "beet Verified 07/22/20 23:38 red", elevated temp. ibuprofen [From Motrin] AdvReac abdominal Verified 07/22/20 23:38 & muscle cramps indomethacin [From Indocin] AdvReac Abdominal Verified 07/22/20 23:38 Pain,N/V ketorolac tromethamine AdvReac "built up Verified 07/22/20 23:38 [From Toradol] in system", had to be given something to reverse lorazepam [From Ativan] AdvReac Nausea & Verified 07/22/20 23:38 Vomiting metoclopramide HCl AdvReac muscle Verified 07/22/20 23:38 [From Reglan] cramps nortriptyline [From Pamelor] AdvReac Chest Pain Verified 07/22/20 23:38 prasterone (DHEA) [From DHEA] AdvReac Chest Pain Verified 07/22/20 23:38 prochlorperazine AdvReac leg Verified 07/22/20 23:38 [From Compazine] cramping propranolol AdvReac Chest Pain Verified 07/22/20 23:38 pseudoephedrine HCl AdvReac face "beet Verified 07/22/20 23:38 [From NyQuil] red", elevated temp. quetiapine [From Seroquel] AdvReac leg Verified 07/22/20 23:38 cramping sumatriptan [From Imitrex] AdvReac migrane Verified 07/22/20 23:38 sumatriptan succinate AdvReac migrane Verified 07/22/20 23:38 [From Imitrex] topiramate [From Topamax] AdvReac "built up Verified 07/22/20 23:38 in system", had to be given something to reverse trazodone AdvReac "built up Verified 07/22/20 23:38 in system", had to be given something to reverse zolpidem tartrate AdvReac "Became Verified 07/22/20 23:38 [From Ambien] violent with no memory" zonisamide [From Zonegran] AdvReac inability Verified 07/22/20 23:38 to eat artificial sweetener AdvReac SEVERE Uncoded 07/18/20 16:26 MIGRAINE HEADACHE Review of Systems ROS Statement: Those systems with pertinent positive or pertinent negative responses have been documented in the HPI. ROS Other: All systems not noted in ROS Statement are negative. Past Medical History Past Medical History: Hyperlipidemia, Hypertension, Seizure Disorder Additional Past Medical History / Comment(s): Migraines, viral meningitis x3 as a child, 1995, 2000, chronic back pain, nerve blocks 08/2016 and 12/2016. Last seizure 05/26/19, "ABSENT SEIZURES. HX TACHYCARDIA, GB/CIPD, PTSD History of Any Multi-Drug Resistant Organisms: None Reported Past Surgical History: Appendectomy, Section, Cholecystectomy, Hernia Repair, Hysterectomy, Orthopedic Surgery, Tonsillectomy, Tubal Ligation Additional Past Surgical History / Comment(s): Hiatal Hernia, umbilical hernia repair, left rotator cuff repair, bilateral knee scopes, pain clinic procedures- occipital nerve block. abd exploratory sx(endometreosis), 3 abd scopes 1981, 1989, 1991), lumbar puncture. EGD. nerve biopsy, salvalry gland biospy Past Anesthesia/Blood Transfusion Reactions: No Reported Reaction Additional Past Anesthesia/Blood Transfusion Reaction / Comment(s): Claustrophobic Past Psychological History: Anxiety, Bipolar, Panic Disorder, PTSD Smoking Status: Current every day smoker Past Alcohol Use History: None Reported Past Drug Use History: None Reported - Past Family History Mother Family Medical History: Cancer, Dementia, Diabetes Mellitus, GERD/Reflux, Hyperlipidemia, Hypertension, Thyroid Disorder Additional Family Medical History / Comment(s): Quad CABG, cardiac stents, toes ampuated. Father History Unknown: Yes Family Medical History: No Reported History General Exam Limitations: no limitations General appearance: alert, in no apparent distress Head exam: Present: atraumatic, normocephalic, normal inspection Eye exam: Present: normal appearance, PERRL, EOMI Pupils: Present: normal accommodation ENT exam: Present: normal exam, normal oropharynx, mucous membranes moist, TM's normal bilaterally, normal external ear exam Neck exam: Present: normal inspection, full ROM. Absent: tenderness Respiratory exam: Present: normal lung sounds bilaterally. Absent: respiratory distress Cardiovascular Exam: Present: regular rate, normal rhythm, normal heart sounds. Absent: systolic murmur, diastolic murmur Extremities exam: Present: normal inspection, full ROM, normal capillary refill. Absent: tenderness, pedal edema, joint swelling Back exam: Present: normal inspection, full ROM. Absent: tenderness, CVA tenderness (R), CVA tenderness (L) Neurological exam: Present: alert, oriented X3 Psychiatric exam: Present: normal affect, normal mood Skin exam: Present: warm, dry, intact, normal color Course Vital Signs 07/22/20 07/23/20 23:35 01:49 Temperature 97.9 F Pulse Rate 95 87 Respiratory 18 14 Rate Blood Pressure 128/84 136/89 O2 Sat by Pulse 95 97 Oximetry Medical Decision Making - Medical Decision Making 42-year-old female presenting to emergency Department with chief complaint of a headache. Patient is well-known to emergency department for frequent visits. Patient was given analgesia and antiemetics. I did offer laboratory workup and imaging, she declined. Return parameters were discussed with patient was understanding and agreeable. Case discussed with Disposition Clinical Impression: Headache Disposition: HOME SELF-CARE Condition: Stable Instructions (If sedation given, give patient instructions): Acute Headache (ED) Additional Instructions: Please return to the Emergency Department if symptoms worsen or any other concerns. Is patient prescribed a controlled substance at d/c from ED?: No Referrals: José Reece MD [Primary Care Provider] - 1-2 days Time of Disposition: 00:47
[2020-07-23 01:51] VITALS: BP 136/89; PULSE 87; RESP 14
== END 2020-07-23 01:45 | disposition home or self-care (01) ==
LOC: EC 23:34
DX: R51.9 Headache, unspecified (principal); E78.5 Hyperlipidemia, unspecified; I10 Essential (primary) hypertension; F41.9 Anxiety disorder, unspecified; F17.200 Nicotine dependence, unspecified, uncomplicated
CPT/HCPCS: 99283; 96374; 96375; J2405; J1170 ×2

== ENCOUNTER 2020-07-25 18:19 | Emergency (ER) | payer OTHER ==
[2020-07-25] MEDS ORDERED: SODIUM CHLORIDE 0.9% 1,000 ML IV STA (19:38)
[2020-07-25] MEDS ORDERED: diphenhydrAMINE 50 MG/ML 1 ML VIAL IVP STA (19:40)
[2020-07-25] MEDS ORDERED: DEXAMETHASONE SOD PHOSPHATE 10 MG/ML 1 ML VIAL IV STA (19:40)
[2020-07-25] MEDS ORDERED: ONDANSETRON 4 MG/2 ML VIAL IVP STA (19:40)
--- NOTE | 2020-07-25 19:47 | ED ---
General Adult HPI - General Chief complaint: Headache Stated complaint: headache Time Seen by Provider: 07/25/20 18:56 Source: patient Mode of arrival: wheelchair Limitations: no limitations - History of Present Illness Initial comments: Dictation was produced using [email or web address] dictation software. please excuse any grammatical, word or spelling errors. This patient was cared for during a federal and state declared state of emergency secondary to Covid 19 Chief Complaint: 50-year-old male presents with acute on chronic headache History of Present Illness: Patient is a 50-year-old female she has past medical history of chronic headaches and migraine disorder. She presents to the emergency department for headaches. States she's been having a headache for the last 15 days. The last month she was seen in our emergency department 5 times for the same complaint. She is well-known to our emergency department for suspected opiate use disorder and frequent headaches. She states that she was seen here 2 days ago was given Dilaudid and Zofran. She states that it helped her symptoms slightly however did not really help. She is here in emergency department again because her pain has not gone anywhere. Denies any numbness distally we are paresthesias to the arms or legs. She does complain of photophobia. She reports that her headache is holocranial. Denies any fever. No neck stiffness The ROS documented in this emergency department record has been reviewed and confirmed by me. Those systems with pertinent positive or negative responses have been documented in the HPI. All other systems are other negative and/or n oncontributory. PHYSICAL EXAM: General Impression: Alert and oriented x3, mild distress secondary to headache HEENT: Normocephalic atraumatic, extra-ocular movements intact, pupils equal and reactive to light bilaterally, mucous membranes moist. Cardiovascular: Heart regular rate and rhythm Chest: Able to complete full sentences, no retractions, no tachypnea Abdomen: abdomen soft, non-tender, non-distended, no organomegaly Musculoskeletal: Pulses present and equal in all extremities, no peripheral edema Motor: no focal deficits noted Neurological: CN II-XII grossly intact, no focal motor or sensory deficits noted Skin: Intact with no visualized rashes Psych: Normal affect and mood ED course: 50-year-old female with suspected opiate use disorder presents today with headache for 15 days. This is her fifth visit here in the last month. His performed. Patient does not have a CAT scan since November of last year. Signs upon arrival are within acceptable limits. Laboratory evaluation obtained. CBC, metabolic panel is unremarkable. Coronavirus is negative. CT brain is unremarkable. Extensive discussion was held with patient that there is concern that she is developing an opiate use disorder, which is suspect given that patient comes to the emergency department. She has an appointment to follow-up with her neurologist in 2 days. She was given the option to be admitted for neurology evaluation for status migrainosus. She does not want to be admitted. Patient given some analgesics. She is discharged. - Related Data Home Medications Medication Instructions Recorded Confirmed Atorvastatin [Lipitor] 40 mg PO HS 04/02/17 04/28/20 Lacosamide [Vimpat] 100 mg PO BID 06/04/17 04/28/20 HYDROcodone/APAP 7.5-325MG [[place] 1 tab PO TID PRN 07/06/17 04/28/20 7.5-325] Albuterol Sulfate [Ventolin HFA] 2 puff INHALATION RT-Q6H PRN 11/07/19 04/28/20 Cyclobenzaprine [Flexeril] 5 mg PO DAILY PRN 01/10/20 04/28/20 Divalproex ER [Depakote ER] 500 mg PO HS 04/28/20 04/28/20 Galcanezumab-Gnlm [Emgality] 120 mg SQ Q30D 04/28/20 04/28/20 Pregabalin [Lyrica] 75 mg PO BID 04/28/20 04/28/20 amLODIPine [Norvasc] 5 mg PO DAILY 04/28/20 04/28/20 hydrOXYzine pamoate [Vistaril] 50 mg PO BID PRN 04/28/20 04/28/20 Allergies Allergy/AdvReac Type Severity Reaction Status Date / Time dihydroergotamine Allergy Unknown Unknown Verified 07/25/20 18:43 [From Migranal] gabapentin [From Neurontin] Allergy Itching/Swe Verified 07/25/20 18:43 lling latex Allergy Anaphylaxis Verified 07/25/20 18:43 naproxen [From Naprosyn] Allergy Anaphylaxis Verified 07/25/20 18:43 Penicillins Allergy Anaphylaxis Verified 07/25/20 18:43 prednisone Allergy Swelling Verified 07/25/20 18:43 quetiapine fumarate Allergy Itching, Verified 07/25/20 18:43 [From Seroquel] leg cramps rofecoxib [From Vioxx] Allergy Itching, Verified 07/25/20 18:43 leg cramps terfenadine [From Seldane] Allergy Rash/Hives Verified 07/25/20 18:43 tramadol Allergy Nausea & Verified 07/25/20 18:43 Vomiting/LEG CRAMPS/HEART FLUTTERS calcium carbonate [From DHEA] AdvReac Chest Pain Verified 07/25/20 18:43 calcium phosphate,dibasic AdvReac Chest Pain Verified 07/25/20 18:43 [From DHEA] clindamycin AdvReac muscle Verified 07/25/20 18:43 cramps clonidine AdvReac fast Verified 07/25/20 18:43 heartbeat, migraine dextromethorphan HBr AdvReac face/neck Verified 07/25/20 18:43 [From NyQuil] flushing diazepam [From Valium] AdvReac Nausea & Verified 07/25/20 18:43 Vomiting divalproex sodium AdvReac Nausea & Verified 07/25/20 18:43 [From Depakote] Vomiting doxylamine [From NyQuil] AdvReac face "beet Verified 07/25/20 18:43 red", elevated temp. ibuprofen [From Motrin] AdvReac abdominal Verified 07/25/20 18:43 & muscle cramps indomethacin [From Indocin] AdvReac Abdominal Verified 07/25/20 18:43 Pain,N/V ketorolac tromethamine AdvReac "built up Verified 07/25/20 18:43 [From Toradol] in system", had to be given something to reverse lorazepam [From Ativan] AdvReac Nausea & Verified 07/25/20 18:43 Vomiting metoclopramide HCl AdvReac muscle Verified 07/25/20 18:43 [From Reglan] cramps nortriptyline [From Pamelor] AdvReac Chest Pain Verified 07/25/20 18:43 prasterone (DHEA) [From DHEA] AdvReac Chest Pain Verified 07/25/20 18:43 prochlorperazine AdvReac leg Verified 07/25/20 18:43 [From Compazine] cramping propranolol AdvReac Chest Pain Verified 07/25/20 18:43 pseudoephedrine HCl AdvReac face "beet Verified 07/25/20 18:43 [From NyQuil] red", elevated temp. quetiapine [From Seroquel] AdvReac leg Verified 07/25/20 18:43 cramping sumatriptan [From Imitrex] AdvReac migrane Verified 07/25/20 18:43 sumatriptan succinate AdvReac migrane Verified 07/25/20 18:43 [From Imitrex] topiramate [From Topamax] AdvReac "built up Verified 07/25/20 18:43 in system", had to be given something to reverse trazodone AdvReac "built up Verified 07/25/20 18:43 in system", had to be given something to reverse zolpidem tartrate AdvReac "Became Verified 07/25/20 18:43 [From Ambien] violent with no memory" zonisamide [From Zonegran] AdvReac inability Verified 07/25/20 18:43 to eat artificial sweetener AdvReac SEVERE Uncoded 07/25/20 18:43 MIGRAINE HEADACHE Review of Systems ROS Statement: Those systems with pertinent positive or pertinent negative responses have been documented in the HPI. ROS Other: All systems not noted in ROS Statement are negative. Past Medical History Past Medical History: Hyperlipidemia, Hypertension, Seizure Disorder Additional Past Medical History / Comment(s): Migraines, viral meningitis x3 as a child, 1995, 2000, chronic back pain, nerve blocks 08/2016 and 12/2016. Last seizure 05/26/19, "ABSENT SEIZURES. HX TACHYCARDIA, GB/CIPD, PTSD History of Any Multi-Drug Resistant Organisms: None Reported Past Surgical History: Appendectomy, Section, Cholecystectomy, Hernia Repair, Hysterectomy, Orthopedic Surgery, Tonsillectomy, Tubal Ligation Additional Past Surgical History / Comment(s): Hiatal Hernia, umbilical hernia repair, left rotator cuff repair, bilateral knee scopes, pain clinic procedures- occipital nerve block. abd exploratory sx(endometreosis), 3 abd scopes 1981, , 1991), lumbar puncture. EGD. nerve biopsy, salvalry gland biospy Past Anesthesia/Blood Transfusion Reactions: No Reported Reaction Additional Past Anesthesia/Blood Transfusion Reaction / Comment(s): Claustrophobic Past Psychological History: Anxiety, Bipolar, Panic Disorder, PTSD Smoking Status: Current every day smoker Past Alcohol Use History: None Reported Past Drug Use History: None Reported - Past Family History Mother Family Medical History: Cancer, Dementia, Diabetes Mellitus, GERD/Reflux, Hyperlipidemia, Hypertension, Thyroid Disorder Additional Family Medical History / Comment(s): Quad CABG, cardiac stents, toes ampuated. Father History Unknown: Yes Family Medical History: No Reported History General Exam Limitations: no limitations Course Vital Signs 07/25/20 18:41 Temperature 99.1 F Pulse Rate 98 Respiratory 20 Rate Blood Pressure 151/100 O2 Sat by Pulse 98 Oximetry Medical Decision Making - Lab Data Result diagrams: 07/25/20 20:11 07/25/20 20:11 Lab Results 07/25/20 07/25/20 07/25/20 Range/Units 20:11 20:11 20:41 WBC 12.1 H (3.8-10.6) k/uL RBC 4.43 (3.80-5.40) m/uL Hgb 13.7 (11.4-16.0) gm/dL Hct 41.5 (34.0-46.0) % MCV 93.7 (80.0-100.0) fL MCH 30.9 (25.0-35.0) pg MCHC 33.0 (31.0-37.0) g/dL RDW 13.5 (11.5-15.5) % Plt Count 321 (150-450) k/uL MPV 8.4 Neutrophils % 71 % Lymphocytes % 23 % Monocytes % 4 % Eosinophils % 1 % Basophils % 0 % Neutrophils # 8.6 H (1.3-7.7) k/uL Lymphocytes # 2.7 (1.0-4.8) k/uL Monocytes # 0.4 (0-1.0) k/uL Eosinophils # 0.1 (0-0.7) k/uL Basophils # 0.1 (0-0.2) k/uL Sodium 139 (137-145) mmol/L Potassium 3.5 (3.5-5.1) mmol/L Chloride 102 (98-107) mmol/L Carbon Dioxide 30 (22-30) mmol/L Anion Gap 7 mmol/L BUN 10 (7-17) mg/dL Creatinine 0.65 (0.52-1.04) mg/dL Est GFR (CKD-EPI)AfAm >90 (>60 ml/min/1.73 sqM) Est GFR (CKD-EPI)NonAf >90 (>60 ml/min/1.73 sqM) Glucose 95 (74-99) mg/dL Calcium 8.7 (8.4-10.2) mg/dL Coronavirus (PCR) Not Detected (Not Detectd) Disposition Clinical Impression: Headache Disposition: HOME SELF-CARE Condition: Fair Instructions (If sedation given, give patient instructions): Acute Headache (ED), Opioid Use Disorder (ED) Is patient prescribed a controlled substance at d/c from ED?: No Referrals: José Reece MD [Primary Care Provider] - 1-2 days Time of Disposition: 21:42
[2020-07-25 20:18] LABS: Basophils # (A) 0.1 k/uL (0-0.2); Basophils % (A) 0 %; Eosinophils # (A) 0.1 k/uL (0-0.7); Eosinophils % (A) 1 %; HCT 41.5 % (34.0-46.0); HGB 13.7 gm/dL (11.4-16.0); Lymphocytes # (A) 2.7 k/uL (1.0-4.8); Lymphocytes % (A) 23 %; MCH 30.9 pg (25.0-35.0); MCV 93.7 fL (80.0-100.0); Mean Platelet Volume 8.4; Monocytes # (A) 0.4 k/uL (0-1.0); Monocytes % (A) 4 %; Neutrophils # (A) 8.6 k/uL (1.3-7.7); Neutrophils % (A) 71 %; Platelet Count 321 k/uL (150-450); RBC 4.43 m/uL (3.80-5.40); RDW 13.5 % (11.5-15.5); WBC 12.1 k/uL (3.8-10.6)
[2020-07-25 20:28] LABS: African American GFR (CKD) >90 (>60 ml/min/1.73 sqM); Anion Gap 7 mmol/L; Blood Urea Nitrogen 10 mg/dL (7-17); Calcium 8.7 mg/dL (8.4-10.2); Carbon Dioxide 30 mmol/L (22-30); Chloride 102 mmol/L (98-107); Glucose 95 mg/dL (74-99); Non-African American GFR(CKD) >90 (>60 ml/min/1.73 sqM); Potassium 3.5 mmol/L (3.5-5.1); Sodium 139 mmol/L (137-145)
[2020-07-25] MEDS: MAGNESIUM SULFATE-D5W PMX 1 GM in DEXTROSE/WATER 1 100ML.BAG IVPB SCH ×2 (21:11→21:57)
--- NOTE | 2020-07-25 21:33 | CT ---
EXAMINATION TYPE: CT brain wo con DATE OF EXAM: 07/25/2020 HISTORY: . Headache CT DLP: 1087.4 mGycm. Automated Exposure Control for Dose Reduction was Utilized. TECHNIQUE: CT scan of the head is performed without contrast. COMPARISON: 11/07/2019 FINDINGS: There is no acute intracranial hemorrhage, midline shift, or mass effect identified. The ventricles, sulci, and cisterns are normal in size and configuration. No normal extra-axial fluid collection. No depressed calvarial fracture. Visualized sinuses and masto id air cells are clear. IMPRESSION: No acute intracranial hemorrhage, midline shift, or mass effect.
[2020-07-25] MEDS ORDERED: HYDROmorphone 0.5 MG/0.5 ML SYRINGE IVP STA (21:41)
[2020-07-25 22:38] VITALS: BP 141/87; PULSE 81; RESP 18; TEMP 98.1
== END 2020-07-25 22:33 | disposition home or self-care (01) ==
LOC: EC 18:19
DX: R51.9 Headache, unspecified (principal); E78.5 Hyperlipidemia, unspecified; F17.200 Nicotine dependence, unspecified, uncomplicated; F41.9 Anxiety disorder, unspecified; G40.909 Epilepsy, unspecified, not intractable, without status epilepticus; I10 Essential (primary) hypertension; Z90.49 Acquired absence of other specified parts of digestive tract; Z90.09 Acquired absence of other part of head and neck; Z90.710 Acquired absence of both cervix and uterus; Z98.51 Tubal ligation status; F31.9 Bipolar disorder, unspecified
CPT/HCPCS: 36415; 80048; 85025; 87635; 70450; 99284; 96365; 96375 ×3; J1200; J2405; J3475; J1170

== ENCOUNTER 2020-08-17 16:44 | Emergency (ER) | payer OTHER ==
[2020-08-17 16:54] VITALS: BP 133/93; PULSE 92; RESP 18; TEMP 98
[2020-08-17] MEDS ORDERED: SODIUM CHLORIDE 0.9% 1,000 ML IV STA (17:15)
[2020-08-17] MEDS ORDERED: HYDROmorphone 1 MG/ML 1 ML SYRINGE IVP STA ×2 (17:15→18:24)
[2020-08-17] MEDS ORDERED: diphenhydrAMINE 50 MG/ML 1 ML VIAL IVP STA (17:15)
[2020-08-17] MEDS ORDERED: ONDANSETRON 4 MG/2 ML VIAL IVP STA (17:15)
--- NOTE | 2020-08-17 18:16 | ED ---
Headache HPI - General Chief Complaint: Headache Stated Complaint: Headache Time Seen by Provider: 08/17/20 16:55 Mode of arrival: wheelchair Limitations: no limitations - History of Present Illness Initial Comments: Patient is a 50-year-old female with history of migraines, presenting to the emergency department complaints of a headache for the last 4-5 days. She is well-known to the ER for her headaches. She has had a recent computed tomography scan, no acute intercranial process. She follows with [facility] migraine clinic. She states his headaches been ongoing for the last 5 days, she has tried her at home medications without improvement. She currently rates her pain an 8/10, and nauseous, light sensitive. She states this feels like her typical migraines. No falls or trauma. She denies any fevers or chills, no chest pain or shortness of breath. No neck pain. She is no further complaints. - Related Data Home Medications Medication Instructions Recorded Confirmed Atorvastatin [Lipitor] 40 mg PO HS 04/02/17 04/28/20 Lacosamide [Vimpat] 100 mg PO BID 06/04/17 04/28/20 HYDROcodone/APAP 7.5-325MG [[place] 1 tab PO TID PRN 07/06/17 04/28/20 7.5-325] Albuterol Sulfate [Ventolin HFA] 2 puff INHALATION RT-Q6H PRN 11/07/19 04/28/20 Cyclobenzaprine [Flexeril] 5 mg PO DAILY PRN 01/10/20 04/28/20 Divalproex ER [Depakote ER] 500 mg PO HS 04/28/20 04/28/20 Galcanezumab-Gnlm [Emgality] 120 mg SQ Q30D 04/28/20 04/28/20 Pregabalin [Lyrica] 75 mg PO BID 04/28/20 04/28/20 amLODIPine [Norvasc] 5 mg PO DAILY 04/28/20 04/28/20 hydrOXYzine pamoate [Vistaril] 50 mg PO BID PRN 04/28/20 04/28/20 Allergies Allergy/AdvReac Type Severity Reaction Status Date / Time dihydroergotamine Allergy Unknown Unknown Verified 07/25/20 18:43 [From Migranal] gabapentin [From Neurontin] Allergy Itching/Swe Verified 07/25/20 18:43 lling latex Allergy Anaphylaxis Verified 07/25/20 18:43 naproxen [From Naprosyn] Allergy Anaphylaxis Verified 07/25/20 18:43 Penicillins Allergy Anaphylaxis Verified 07/25/20 18:43 prednisone Allergy Swelling Verified 07/25/20 18:43 quetiapine fumarate Allergy Itching, Verified 07/25/20 18:43 [From Seroquel] leg cramps rofecoxib [From Vioxx] Allergy Itching, Verified 07/25/20 18:43 leg cramps terfenadine [From Seldane] Allergy Rash/Hives Verified 07/25/20 18:43 tramadol Allergy Nausea & Verified 07/25/20 18:43 Vomiting/LEG CRAMPS/HEART FLUTTERS calcium carbonate [From DHEA] AdvReac Chest Pain Verified 07/25/20 18:43 calcium phosphate,dibasic AdvReac Chest Pain Verified 07/25/20 18:43 [From DHEA] clindamycin AdvReac muscle Verified 07/25/20 18:43 cramps clonidine AdvReac fast Verified 07/25/20 18:43 heartbeat, migraine dextromethorphan HBr AdvReac face/neck Verified 07/25/20 18:43 [From NyQuil] flushing diazepam [From Valium] AdvReac Nausea & Verified 07/25/20 18:43 Vomiting divalproex sodium AdvReac Nausea & Verified 07/25/20 18:43 [From Depakote] Vomiting doxylamine [From NyQuil] AdvReac face "beet Verified 07/25/20 18:43 red", elevated temp. ibuprofen [From Motrin] AdvReac abdominal Verified 07/25/20 18:43 & muscle cramps indomethacin [From Indocin] AdvReac Abdominal Verified 07/25/20 18:43 Pain,N/V ketorolac tromethamine AdvReac "built up Verified 07/25/20 18:43 [From Toradol] in system", had to be given something to reverse lorazepam [From Ativan] AdvReac Nausea & Verified 07/25/20 18:43 Vomiting metoclopramide HCl AdvReac muscle Verified 07/25/20 18:43 [From Reglan] cramps nortriptyline [From Pamelor] AdvReac Chest Pain Verified 07/25/20 18:43 prasterone (DHEA) [From DHEA] AdvReac Chest Pain Verified 07/25/20 18:43 prochlorperazine AdvReac leg Verified 07/25/20 18:43 [From Compazine] cramping propranolol AdvReac Chest Pain Verified 07/25/20 18:43 pseudoephedrine HCl AdvReac face "beet Verified 07/25/20 18:43 [From NyQuil] red", elevated temp. quetiapine [From Seroquel] AdvReac leg Verified 07/25/20 18:43 cramping sumatriptan [From Imitrex] AdvReac migrane Verified 07/25/20 18:43 sumatriptan succinate AdvReac migrane Verified 07/25/20 18:43 [From Imitrex] topiramate [From Topamax] AdvReac "built up Verified 07/25/20 18:43 in system", had to be given something to reverse trazodone AdvReac "built up Verified 07/25/20 18:43 in system", had to be given something to reverse zolpidem tartrate AdvReac "Became Verified 07/25/20 18:43 [From Ambien] violent with no memory" zonisamide [From Zonegran] AdvReac inability Verified 07/25/20 18:43 to eat artificial sweetener AdvReac SEVERE Uncoded 07/25/20 18:43 MIGRAINE HEADACHE Review of Systems ROS Statement: Those systems with pertinent positive or pertinent negative responses have been documented in the HPI. ROS Other: All systems not noted in ROS Statement are negative. Past Medical History Past Medical History: Hyperlipidemia, Hypertension, Seizure Disorder Additional Past Medical History / Comment(s): Migraines, viral meningitis x3 as a child, 1995, 2000, chronic back pain, nerve blocks 08/2016 and 12/2016. Last seizure 05/26/19, "ABSENT SEIZURES. HX TACHYCARDIA, GB/CIPD, PTSD History of Any Multi-Drug Resistant Organisms: None Reported Past Surgical History: Appendectomy, Section, Cholecystectomy, Hernia Repair, Hysterectomy, Orthopedic Surgery, Tonsillectomy, Tubal Ligation Additional Past Surgical History / Comment(s): Hiatal Hernia, umbilical hernia repair, left rotator cuff repair, bilateral knee scopes, pain clinic procedures- occipital nerve block. abd exploratory sx(endometreosis), 3 abd scopes 1981, , 1991), lumbar puncture. EGD. nerve biopsy, salvalry gland biospy Past Anesthesia/Blood Transfusion Reactions: No Reported Reaction Additional Past Anesthesia/Blood Transfusion Reaction / Comment(s): Claustrophobic Past Psychological History: Anxiety, Bipolar, Panic Disorder, PTSD Smoking Status: Current every day smoker Past Alcohol Use History: None Reported Past Drug Use History: None Reported - Past Family History Mother Family Medical History: Cancer, Dementia, Diabetes Mellitus, GERD/Reflux, Hyperlipidemia, Hypertension, Thyroid Disorder Additional Family Medical History / Comment(s): Quad CABG, cardiac stents, toes ampuated. Father History Unknown: Yes Family Medical History: No Reported History General Exam - General Exam Comments Initial Comments: GENERAL: Patient is well-developed and well-nourished. Patient is nontoxic and in no acute distress. HEAD: Atraumatic, normocephalic. EYES: Pupils equal round and reactive to light, extraocular movements intact, sclera anicteric, conjunctiva are normal. Eyelids were unremarkable. Light sensitive. ENT: TMs normal, nares patent, oropharynx clear without exudates. Moist mucous membranes. NECK: Normal range of motion, supple without lymphadenopathy or JVD. LUNGS: Unlabored respirations. Breath sounds clear to auscultation bilaterally and equal. No wheezes rales or rhonchi. HEART: Regular rate and rhythm without murmurs, rubs or gallops. ABDOMEN: Soft, nontender, normoactive bowel sounds. No guarding, no rebound. No masses appreciated. : Deferred MUSCULOSKELETAL: Normal extremities with adequate strength and normal range of motion, no pitting or edema. No clubbing or cyanosis. NEUROLOGICAL: Patient is alert and oriented x 3. Motor and sensory are also intact. Cranial nerves II through XII grossly intact. Symmetrical smile. Normal speech, normal gait. PSYCH: Normal mood, normal affect. SKIN: Warm, Dry, normal turgor, no rashes or lesions noted. Limitations: no limitations Course Vital Signs 08/17/20 16:50 Temperature 98.0 F Pulse Rate 92 Respiratory 18 Rate Blood Pressure 133/93 O2 Sat by Pulse 97 Oximetry Medical Decision Making - Medical Decision Making Patient is a 50-year-old female with history of migraines, well-known to this ER, presenting with a headache for the last 4-5 days. Positive nausea and light sensitive. This does feel like her normal migraines. She's had a recent computed tomography scan with no acute abnormalities. Her exam is unremarkable, no acute neuro deficits. She was given pain meds, Zosyn and Benadryl, reports improvement in her symptoms. She is ready to be discharged home, she can follow up with the migraine clinic at [facility]. She is in agreement with this plan of care. Return parameters were discussed with the patient and she verbalized understanding. Case discussed with Dr. Duffy. Disposition Clinical Impression: Headache Disposition: HOME SELF-CARE Condition: Stable Instructions (If sedation given, give patient instructions): Acute Headache (ED) Additional Instructions: Please return to the Emergency Department if symptoms worsen or any other concerns. Recommend following up with your migraine clinic at [facility]. Is patient prescribed a controlled substance at d/c from ED?: No Referrals: José Reece MD [Primary Care Provider] - 1-2 days
== END 2020-08-17 19:26 | disposition home or self-care (01) ==
LOC: EC 16:44
DX: G43.909 Migraine, unspecified, not intractable, without status migrainosus (principal); E78.5 Hyperlipidemia, unspecified; G40.909 Epilepsy, unspecified, not intractable, without status epilepticus; F17.200 Nicotine dependence, unspecified, uncomplicated; F41.9 Anxiety disorder, unspecified; F31.9 Bipolar disorder, unspecified; I10 Essential (primary) hypertension; Z90.49 Acquired absence of other specified parts of digestive tract; Z90.710 Acquired absence of both cervix and uterus; Z90.09 Acquired absence of other part of head and neck; Z98.51 Tubal ligation status
CPT/HCPCS: 99284; 96374; 96375 ×3; 96361; J1200; J2405; J1170

== ENCOUNTER 2020-08-29 22:46 | Emergency (ER) | payer OTHER ==
[2020-08-29 22:51] VITALS: RESP 18
[2020-08-29] MEDS ORDERED: diphenhydrAMINE 50 MG/ML 1 ML VIAL IM STA (23:29)
[2020-08-29] MEDS ORDERED: HYDROmorphone 1 MG/ML 1 ML SYRINGE IM STA (23:29)
[2020-08-29] MEDS ORDERED: ONDANSETRON 4 MG/2 ML VIAL IM STA (23:29)
--- NOTE | 2020-08-29 23:32 | ED ---
Headache HPI - General Chief Complaint: Headache Stated Complaint: Migraine Time Seen by Provider: 08/29/20 22:59 Mode of arrival: ambulatory Limitations: no limitations - History of Present Illness MD Complaint: "migraine" -: hour(s) Onset Description: gradual Location: diffuse Severity: severe Quality: aching, similar to previous headaches Consistency: constant Improves With: nothing Worsens With: light, noise Context: occurred at rest Associated Symptoms: nausea, photophobia, sensitivity to sound Treatments Prior to Arrival: migraine medication - Related Data Home Medications Medication Instructions Recorded Confirmed Atorvastatin [Lipitor] 40 mg PO HS 04/02/17 04/28/20 Lacosamide [Vimpat] 100 mg PO BID 06/04/17 04/28/20 HYDROcodone/APAP 7.5-325MG [[place] 1 tab PO TID PRN 07/06/17 04/28/20 7.5-325] Albuterol Sulfate [Ventolin HFA] 2 puff INHALATION RT-Q6H PRN 11/07/19 04/28/20 Cyclobenzaprine [Flexeril] 5 mg PO DAILY PRN 01/10/20 04/28/20 Divalproex ER [Depakote ER] 500 mg PO HS 04/28/20 04/28/20 Galcanezumab-Gnlm [Emgality] 120 mg SQ Q30D 04/28/20 04/28/20 Pregabalin [Lyrica] 75 mg PO BID 04/28/20 04/28/20 amLODIPine [Norvasc] 5 mg PO DAILY 04/28/20 04/28/20 hydrOXYzine pamoate [Vistaril] 50 mg PO BID PRN 04/28/20 04/28/20 Allergies Allergy/AdvReac Type Severity Reaction Status Date / Time dihydroergotamine Allergy Unknown Unknown Verified 08/29/20 22:51 [From Migranal] gabapentin [From Neurontin] Allergy Itching/Swe Verified 08/29/20 22:51 lling latex Allergy Anaphylaxis Verified 08/29/20 22:51 naproxen [From Naprosyn] Allergy Anaphylaxis Verified 08/29/20 22:51 Penicillins Allergy Anaphylaxis Verified 08/29/20 22:51 prednisone Allergy Swelling Verified 08/29/20 22:51 quetiapine fumarate Allergy Itching, Verified 08/29/20 22:51 [From Seroquel] leg cramps rofecoxib [From Vioxx] Allergy Itching, Verified 08/29/20 22:51 leg cramps terfenadine [From Seldane] Allergy Rash/Hives Verified 08/29/20 22:51 tramadol Allergy Nausea & Verified 08/29/20 22:51 Vomiting/LEG CRAMPS/HEART FLUTTERS calcium carbonate [From DHEA] AdvReac Chest Pain Verified 08/29/20 22:51 calcium phosphate,dibasic AdvReac Chest Pain Verified 08/29/20 22:51 [From DHEA] clindamycin AdvReac muscle Verified 08/29/20 22:51 cramps clonidine AdvReac fast Verified 08/29/20 22:51 heartbeat, migraine dextromethorphan HBr AdvReac face/neck Verified 08/29/20 22:51 [From NyQuil] flushing diazepam [From Valium] AdvReac Nausea & Verified 08/29/20 22:51 Vomiting divalproex sodium AdvReac Nausea & Verified 08/29/20 22:51 [From Depakote] Vomiting doxylamine [From NyQuil] AdvReac face "beet Verified 08/29/20 22:51 red", elevated temp. ibuprofen [From Motrin] AdvReac abdominal Verified 08/29/20 22:51 & muscle cramps indomethacin [From Indocin] AdvReac Abdominal Verified 08/29/20 22:51 Pain,N/V ketorolac tromethamine AdvReac "built up Verified 08/29/20 22:51 [From Toradol] in system", had to be given something to reverse lorazepam [From Ativan] AdvReac Nausea & Verified 08/29/20 22:51 Vomiting metoclopramide HCl AdvReac muscle Verified 08/29/20 22:51 [From Reglan] cramps nortriptyline [From Pamelor] AdvReac Chest Pain Verified 08/29/20 22:51 prasterone (DHEA) [From DHEA] AdvReac Chest Pain Verified 08/29/20 22:51 prochlorperazine AdvReac leg Verified 08/29/20 22:51 [From Compazine] cramping propranolol AdvReac Chest Pain Verified 08/29/20 22:51 pseudoephedrine HCl AdvReac face "beet Verified 08/29/20 22:51 [From NyQuil] red", elevated temp. quetiapine [From Seroquel] AdvReac leg Verified 08/29/20 22:51 cramping sumatriptan [From Imitrex] AdvReac migrane Verified 08/29/20 22:51 sumatriptan succinate AdvReac migrane Verified 08/29/20 22:51 [From Imitrex] topiramate [From Topamax] AdvReac "built up Verified 08/29/20 22:51 in system", had to be given something to reverse trazodone AdvReac "built up Verified 08/29/20 22:51 in system", had to be given something to reverse zolpidem tartrate AdvReac "Became Verified 08/29/20 22:51 [From Ambien] violent with no memory" zonisamide [From Zonegran] AdvReac inability Verified 08/29/20 22:51 to eat artificial sweetener AdvReac SEVERE Uncoded 08/29/20 22:51 MIGRAINE HEADACHE Review of Systems ROS Statement: Those systems with pertinent positive or pertinent negative responses have been documented in the HPI. ROS Other: All systems not noted in ROS Statement are negative. Constitutional: Denies: fever, chills, weakness Eyes: Denies: vision change ENT: Denies: ear pain, hearing loss Respiratory: Denies: cough, dyspnea Cardiovascular: Denies: syncope Gastrointestinal: Reports: nausea, vomiting Skin: Denies: rash Neurological: Reports: as per HPI, headache. Denies: weakness, numbness Past Medical History Past Medical History: Hyperlipidemia, Hypertension, Seizure Disorder Additional Past Medical History / Comment(s): Migraines, viral meningitis x3 as a child, 1995, 2000, chronic back pain, nerve blocks 08/2016 and 12/2016. Last seizure 05/26/19, "ABSENT SEIZURES. HX TACHYCARDIA, GB/CIPD, PTSD History of Any Multi-Drug Resistant Organisms: None Reported Past Surgical History: Appendectomy, Section, Cholecystectomy, Hernia Repair, Hysterectomy, Orthopedic Surgery, Tonsillectomy, Tubal Ligation Additional Past Surgical History / Comment(s): Hiatal Hernia, umbilical hernia repair, left rotator cuff repair, bilateral knee scopes, pain clinic procedures- occipital nerve block. abd exploratory sx(endometreosis), 3 abd scopes 1981, 1989, 1991), lumbar puncture. EGD. nerve biopsy, salvalry gland biospy Past Anesthesia/Blood Transfusion Reactions: No Reported Reaction Additional Past Anesthesia/Blood Transfusion Reaction / Comment(s): Claustrophobic Past Psychological History: Anxiety, Bipolar, Panic Disorder, PTSD Smoking Status: Current every day smoker Past Alcohol Use History: None Reported Past Drug Use History: None Reported - Past Family History Mother Family Medical History: Cancer, Dementia, Diabetes Mellitus, GERD/Reflux, Hyperlipidemia, Hypertension, Thyroid Disorder Additional Family Medical History / Comment(s): Quad CABG, cardiac stents, toes ampuated. Father History Unknown: Yes Family Medical History: No Reported History General Exam Limitations: no limitations General appearance: alert, in no apparent distress Head exam: Present: atraumatic, normocephalic Eye exam: Present: normal appearance, EOMI. Absent: scleral icterus, conjunctival injection Pupils: Present: other (Limited secondary to photophobia) Neck exam: Present: normal inspection, full ROM. Absent: tenderness, meningismus Respiratory exam: Present: normal lung sounds bilaterally. Absent: respiratory distress, wheezes, rales, rhonchi, stridor Cardiovascular Exam: Present: regular rate, normal rhythm, normal heart sounds. Absent: systolic murmur, diastolic murmur, rubs, gallop GI/Abdominal exam: Present: soft. Absent: distended, tenderness, guarding, rebound, rigid, mass Back exam: Present: normal inspection, full ROM. Absent: vertebral tenderness Neurological exam: Present: alert, oriented X3, CN II-XII intact. Absent: motor sensory deficit Skin exam: Present: warm, dry, intact, normal color. Absent: rash Course Vital Signs 08/29/20 22:48 Temperature 98 F Pulse Rate 96 Respiratory 18 Rate Blood Pressure 124/88 O2 Sat by Pulse 94 L Oximetry Disposition Clinical Impression: Headache Disposition: HOME SELF-CARE Condition: Good Instructions (If sedation given, give patient instructions): Acute Headache (ED) Is patient prescribed a controlled substance at d/c from ED?: No Referrals: José Reece MD [Primary Care Provider] - 1-2 days
[2020-08-30] MEDS ORDERED: diphenhydrAMINE 50 MG/ML 1 ML VIAL IM STA (00:29)
[2020-08-30] MEDS ORDERED: HYDROmorphone 1 MG/ML 1 ML SYRINGE IM STA (00:29)
[2020-08-30 00:59] VITALS: BP 123/77; PULSE 87; TEMP 98
== END 2020-08-30 01:00 | disposition home or self-care (01) ==
LOC: EC 22:46
DX: R51.9 Headache, unspecified (principal); E78.5 Hyperlipidemia, unspecified; I10 Essential (primary) hypertension; G40.909 Epilepsy, unspecified, not intractable, without status epilepticus; F41.9 Anxiety disorder, unspecified; F31.9 Bipolar disorder, unspecified; F17.200 Nicotine dependence, unspecified, uncomplicated; Z79.899 Other long term (current) drug therapy; Z82.49 Family history of ischemic heart disease and other diseases of the circulatory system; Z83.3 Family history of diabetes mellitus; Z83.49 Family history of other endocrine, nutritional and metabolic diseases; Z88.0 Allergy status to penicillin; Z88.1 Allergy status to other antibiotic agents; Z88.2 Allergy status to sulfonamides; Z88.5 Allergy status to narcotic agent; Z88.6 Allergy status to analgesic agent; Z88.8 Allergy status to other drugs, medicaments and biological substances
CPT/HCPCS: 99283; 96372 ×5; J1200 ×2; J2405; J1170 ×2

== ENCOUNTER 2020-09-06 14:13 | Emergency (ER) | payer OTHER ==
[2020-09-06] MEDS ORDERED: SODIUM CHLORIDE 0.9% 1,000 ML IV STA (16:05)
[2020-09-06] MEDS ORDERED: ONDANSETRON 4 MG/2 ML VIAL IVP STA (16:05)
[2020-09-06] MEDS ORDERED: PANTOPRAZOLE 40 MG/10 ML VIAL IVP STA (16:11)
[2020-09-06] MEDS ORDERED: HYDROmorphone 1 MG/ML 1 ML SYRINGE IVP STA ×2 (16:11→19:20)
--- NOTE | 2020-09-06 16:13 | ED ---
Nausea/Vomiting/Diarrhea HPI - General Chief complaint: Nausea/Vomiting/Diarrhea Stated complaint: vomiting Time Seen by Provider: 09/06/20 15:59 Source: patient, RN notes reviewed Mode of arrival: wheelchair Limitations: no limitations - History of Present Illness Initial comments: Patient is a 50-year-old female that presents to emergency department per her primary care for nausea and vomiting 2 weeks. She notes he does have a history of stomach ulcers. She notes that just a small food makes her vomit. She did appear to be mildly uncomfortable sitting up in bed during exam and interview. She did note that she does have chronic pain but denied any acute pain that's different from normal. He did note that when she vomits she sometimes gets a coffee ground appearance. She did note that she did have some abdominal tenderness in the left upper quadrant. She reported that she did have her gallbladder removed. She denied any chest pain shortness breath headache diarrhea constipation fever fatigue chills hematochezia melena. - Related Data Home Medications Medication Instructions Recorded Confirmed Atorvastatin [Lipitor] 40 mg PO HS 04/02/17 09/06/20 Lacosamide [Vimpat] 100 mg PO BID 06/04/17 09/06/20 HYDROcodone/APAP 7.5-325MG [[place] 1 tab PO TID PRN 07/06/17 09/06/20 7.5-325] Albuterol Sulfate [Ventolin HFA] 2 puff INHALATION RT-Q6H PRN 11/07/19 09/06/20 Galcanezumab-Gnlm [Emgality] 120 mg SQ Q30D 04/28/20 09/06/20 amLODIPine [Norvasc] 5 mg PO DAILY 04/28/20 09/06/20 hydrOXYzine pamoate [Vistaril] 25 mg PO TID PRN 09/06/20 09/06/20 Allergies Allergy/AdvReac Type Severity Reaction Status Date / Time dihydroergotamine Allergy Unknown Unknown Verified 09/06/20 16:46 [From Migranal] gabapentin [From Neurontin] Allergy Itching/Swe Verified 09/06/20 16:46 lling latex Allergy Anaphylaxis Verified 09/06/20 16:46 naproxen [From Naprosyn] Allergy Anaphylaxis Verified 09/06/20 16:46 Penicillins Allergy Anaphylaxis Verified 09/06/20 16:46 prednisone Allergy Swelling Verified 09/06/20 16:46 quetiapine fumarate Allergy Itching, Verified 09/06/20 16:46 [From Seroquel] leg cramps rofecoxib [From Vioxx] Allergy Itching, Verified 09/06/20 16:46 leg cramps terfenadine [From Seldane] Allergy Rash/Hives Verified 09/06/20 16:46 tramadol Allergy Nausea & Verified 09/06/20 16:46 Vomiting/LEG CRAMPS/HEART FLUTTERS calcium carbonate [From DHEA] AdvReac Chest Pain Verified 09/06/20 16:46 calcium phosphate,dibasic AdvReac Chest Pain Verified 09/06/20 16:46 [From DHEA] clindamycin AdvReac muscle Verified 09/06/20 16:46 cramps clonidine AdvReac fast Verified 09/06/20 16:46 heartbeat, migraine dextromethorphan HBr AdvReac face/neck Verified 09/06/20 16:46 [From NyQuil] flushing diazepam [From Valium] AdvReac Nausea & Verified 09/06/20 16:46 Vomiting divalproex sodium AdvReac Nausea & Verified 09/06/20 16:46 [From Depakote] Vomiting doxylamine [From NyQuil] AdvReac face "beet Verified 09/06/20 16:46 red", elevated temp. ibuprofen [From Motrin] AdvReac abdominal Verified 09/06/20 16:46 & muscle cramps indomethacin [From Indocin] AdvReac Abdominal Verified 09/06/20 16:46 Pain,N/V ketorolac tromethamine AdvReac "built up Verified 09/06/20 16:46 [From Toradol] in system", had to be given something to reverse lorazepam [From Ativan] AdvReac Nausea & Verified 09/06/20 16:46 Vomiting memantine [From Namenda] AdvReac Itching Verified 09/06/20 16:46 metoclopramide HCl AdvReac muscle Verified 09/06/20 16:46 [From Reglan] cramps nortriptyline [From Pamelor] AdvReac Chest Pain Verified 09/06/20 16:46 prasterone (DHEA) [From DHEA] AdvReac Chest Pain Verified 09/06/20 16:46 prochlorperazine AdvReac leg Verified 09/06/20 16:46 [From Compazine] cramping propranolol AdvReac Chest Pain Verified 09/06/20 16:46 pseudoephedrine HCl AdvReac face "beet Verified 09/06/20 16:46 [From NyQuil] red", elevated temp. quetiapine [From Seroquel] AdvReac leg Verified 09/06/20 16:46 cramping sumatriptan [From Imitrex] AdvReac migrane Verified 09/06/20 16:46 sumatriptan succinate AdvReac migrane Verified 09/06/20 16:46 [From Imitrex] topiramate [From Topamax] AdvReac "built up Verified 09/06/20 16:46 in system", had to be given something to reverse trazodone AdvReac "built up Verified 09/06/20 16:46 in system", had to be given something to reverse zolpidem tartrate AdvReac "Became Verified 09/06/20 16:46 [From Ambien] violent with no memory" zonisamide [From Zonegran] AdvReac inability Verified 09/06/20 16:46 to eat artificial sweetener AdvReac SEVERE Uncoded 09/06/20 14:37 MIGRAINE HEADACHE Review of Systems ROS Statement: Those systems with pertinent positive or pertinent negative responses have been documented in the HPI. ROS Other: All systems not noted in ROS Statement are negative. Past Medical History Past Medical History: Hyperlipidemia, Hypertension, Seizure Disorder Additional Past Medical History / Comment(s): Migraines, viral meningitis x3 as a child, 1995, 2000, chronic back pain, nerve blocks 08/2016 and 12/2016. Last seizure 05/26/19, "ABSENT SEIZURES. HX TACHYCARDIA, GB/CIPD, PTSD History of Any Multi-Drug Resistant Organisms: None Reported Past Surgical History: Appendectomy, Section, Cholecystectomy, Hernia Repair, Hysterectomy, Orthopedic Surgery, Tonsillectomy, Tubal Ligation Additional Past Surgical History / Comment(s): Hiatal Hernia, umbilical hernia repair, left rotator cuff repair, bilateral knee scopes, pain clinic procedures- occipital nerve block. abd exploratory sx(endometreosis), 3 abd scopes 1981, 1989, 1991), lumbar puncture. EGD. nerve biopsy, salvalry gland biospy Past Anesthesia/Blood Transfusion Reactions: No Reported Reaction Additional Past Anesthesia/Blood Transfusion Reaction / Comment(s): Claustrophobic Past Psychological History: Anxiety, Bipolar, Panic Disorder, PTSD Smoking Status: Current every day smoker Past Alcohol Use History: None Reported Past Drug Use History: None Reported - Past Family History Mother Family Medical History: Cancer, Dementia, Diabetes Mellitus, GERD/Reflux, Hyperlipidemia, Hypertension, Thyroid Disorder Additional Family Medical History / Comment(s): Quad CABG, cardiac stents, toes ampuated. Father History Unknown: Yes Family Medical History: No Reported History General Exam Limitations: no limitations General appearance: alert, in no apparent distress Head exam: Present: atraumatic, normocephalic, normal inspection Eye exam: Present: normal appearance, PERRL, EOMI. Absent: scleral icterus, conjunctival injection, periorbital swelling Neck exam: Present: normal inspection. Absent: tenderness, meningismus, lymphadenopathy Respiratory exam: Present: normal lung sounds bilaterally. Absent: respiratory distress, wheezes, rales, rhonchi, stridor Cardiovascular Exam: Present: regular rate, normal rhythm, normal heart sounds. Absent: systolic murmur, diastolic murmur, rubs, gallop, clicks GI/Abdominal exam: Present: soft, tenderness (Left upper quadrant.), normal bowel sounds. Absent: distended, guarding, rebound, rigid Extremities exam: Present: normal inspection, full ROM, normal capillary refill. Absent: tenderness, pedal edema, joint swelling, calf tenderness Neurological exam: Present: alert, oriented X3, CN II-XII intact Psychiatric exam: Present: normal affect, normal mood Skin exam: Present: warm, dry, intact, normal color. Absent: rash Course Vital Signs 09/06/20 14:34 Temperature 98 F Pulse Rate 93 Respiratory 18 Rate Blood Pressure 128/90 O2 Sat by Pulse 99 Oximetry Medical Decision Making - Medical Decision Making 50-year-old female complaining of nausea and vomiting 2 weeks. Labs, CT of the abdomen and pelvis, 1 L normal saline, 4 mg of Zofran, 40 mg of Protonix, 1 mg of Dilaudid ordered. labs: Potassium 3.1, rest unremarkable. 20 mEq of potassium chloride ordered. case discussed with Dr. Mclaughlin, patient can discharge home with follow-up. - Lab Data Result diagrams: 09/06/20 16:32 09/06/20 16:32 Lab Results 09/06/20 09/06/20 09/06/20 Range/Units 16:32 16:32 16:32 WBC 9.6 (3.8-10.6) k/uL RBC 4.52 (3.80-5.40) m/uL Hgb 14.6 (11.4-16.0) gm/dL Hct 41.1 (34.0-46.0) % MCV 90.9 (80.0-100.0) fL MCH 32.2 (25.0-35.0) pg MCHC 35.4 (31.0-37.0) g/dL RDW 12.7 (11.5-15.5) % Plt Count 273 (150-450) k/uL MPV 8.5 Neutrophils % 64 % Lymphocytes % 28 % Monocytes % 6 % Eosinophils % 1 % Basophils % 1 % Neutrophils # 6.1 (1.3-7.7) k/uL Lymphocytes # 2.7 (1.0-4.8) k/uL Monocytes # 0.6 (0-1.0) k/uL Eosinophils # 0.1 (0-0.7) k/uL Basophils # 0.1 (0-0.2) k/uL Sodium 136 L (137-145) mmol/L Potassium 3.1 L (3.5-5.1) mmol/L Chloride 99 (98-107) mmol/L Carbon Dioxide 31 H (22-30) mmol/L Anion Gap 6 mmol/L BUN 6 L (7-17) mg/dL Creatinine 0.70 (0.52-1.04) mg/dL Est GFR (CKD-EPI)AfAm >90 (>60 ml/min/1.73 sqM) Est GFR (CKD-EPI)NonAf >90 (>60 ml/min/1.73 sqM) Glucose 101 H (74-99) mg/dL Calcium 9.0 (8.4-10.2) mg/dL Total Bilirubin 0.4 (0.2-1.3) mg/dL AST 22 (14-36) U/L ALT 13 (4-34) U/L Alkaline Phosphatase 145 H (38-126) U/L Total Protein 6.4 (6.3-8.2) g/dL Albumin 3.9 (3.5-5.0) g/dL Amylase 41 (30-110) U/L Lipase 102 (23-300) U/L Urine Color Light Yellow Urine Appearance Cloudy H (Clear) Urine pH 6.0 (5.0-8.0) Ur Specific [place] 1.024 (1.001-1.035) Urine Protein Negative (Negative) Urine Glucose (UA) Negative (Negative) Urine Ketones Negative (Negative) Urine Blood Moderate H (Negative) Urine Nitrite Negative (Negative) Urine Bilirubin Negative (Negative) Urine Urobilinogen <2.0 (<2.0) mg/dL Ur Leukocyte Esterase Negative (Negative) Urine RBC 3 (0-5) /hpf Urine WBC 3 (0-5) /hpf Ur Squamous Epith Cells 6 H (0-4) /hpf Urine Bacteria Rare H (None) /hpf Urine Mucus Rare H (None) /hpf - Radiology Data Radiology results: report reviewed, image reviewed CT of the abdomen and pelvis: Moderate nonspecific pancolitis consider C. d ifficile colitis or other infectious etiologies. IBD is also a possibility. Additional fold thickening in the gastric fundus and proximal body. There could be a congruent gastritis. Disposition Clinical Impression: Gastritis Disposition: HOME SELF-CARE Condition: Stable Instructions (If sedation given, give patient instructions): Acute Nausea and Vomiting (ED) Additional Instructions: Please return to the Emergency Department if symptoms worsen or any other concerns. Follow-up primary care and get GI referral as needed. Avoid spicy foods or other foods that irritate the summertime. Drink plenty of fluids. Is patient prescribed a controlled substance at d/c from ED?: No Referrals: José Reece MD [Primary Care Provider] - 1-2 days Sterling Arellano MD [STAFF PHYSICIAN] - 1-2 days Time of Disposition: 19:07
[2020-09-06 16:42] LABS: Basophils # (A) 0.1 k/uL (0-0.2); Basophils % (A) 1 %; Eosinophils # (A) 0.1 k/uL (0-0.7); Eosinophils % (A) 1 %; HCT 41.1 % (34.0-46.0); HGB 14.6 gm/dL (11.4-16.0); Lymphocytes # (A) 2.7 k/uL (1.0-4.8); Lymphocytes % (A) 28 %; MCH 32.2 pg (25.0-35.0); MCHC 35.4 g/dL (31.0-37.0); MCV 90.9 fL (80.0-100.0); Mean Platelet Volume 8.5; Monocytes # (A) 0.6 k/uL (0-1.0); Monocytes % (A) 6 %; Neutrophils # (A) 6.1 k/uL (1.3-7.7); Neutrophils % (A) 64 %; Platelet Count 273 k/uL (150-450); RBC 4.52 m/uL (3.80-5.40); RDW 12.7 % (11.5-15.5); WBC 9.6 k/uL (3.8-10.6)
[2020-09-06 16:52] LABS: ALT 13 U/L (4-34); AST 22 U/L (14-36); African American GFR (CKD) >90 (>60 ml/min/1.73 sqM); Albumin 3.9 g/dL (3.5-5.0); Alkaline Phosphatase 145 U/L (38-126); Amylase 41 U/L (30-110); Anion Gap 6 mmol/L; Blood Urea Nitrogen 6 mg/dL (7-17); Carbon Dioxide 31 mmol/L (22-30); Chloride 99 mmol/L (98-107); Glucose 101 mg/dL (74-99); Lipase 102 U/L (23-300); Non-African American GFR(CKD) >90 (>60 ml/min/1.73 sqM); Potassium 3.1 mmol/L (3.5-5.1); Sodium 136 mmol/L (137-145); Total Bilirubin 0.4 mg/dL (0.2-1.3); Total Protein 6.4 g/dL (6.3-8.2)
[2020-09-06] MEDS ORDERED: POTASSIUM CHLORIDE ER 20 MEQ TAB.ER PO STA (17:37)
[2020-09-06 18:38] LABS: Appearance,Urine Cloudy (Clear); Bacteria,Urine Rare /hpf; Bilirubin,Urine Negative (Negative); Blood,Urine Moderate (Negative); Color,Urine Light Yellow; Glucose,Urine (UA) Negative (Negative); Ketones,Urine Negative (Negative); Leukocyte Esterase,Urine Negative (Negative); Mucus,Urine Rare /hpf; Nitrite,Urine Negative (Negative); Protein,Urine Negative (Negative); RBC,Urine 3 /hpf (0-5); Specific Gravity,Urine 1.024 (1.001-1.035); Squamous Epithelial Cell,Urine 6 /hpf (0-4); Urobilinogen,Urine <2.0 mg/dL (<2.0); WBC,Urine 3 /hpf (0-5)
--- NOTE | 2020-09-06 18:43 | CT ---
EXAMINATION TYPE: CT abdomen pelvis w con DATE OF EXAM: 09/06/2020 COMPARISON: 04/29/2017 HISTORY: 50-year-old female Generalized pain with N/V for 2 weeks. TECHNIQUE: Contiguous axial scanning of the abdomen and pelvis following administration of 100 ml Iso lupe 300 IV contrast. Delayed images through the kidneys and coronal/sagittal reconstructions perform ed. CT DLP: 1159.6 mGycm Automated exposure control for dose reduction was used. FINDINGS: Heart normal size without pericardial effusion. Lung bases clear without pleural effusion. Post surgical change at the GE junction suggesting prior Asha fundoplication. There may be some gas tric fold thickening at the fundus and proximal body. No focal liver lesion. Status post cholecystectomy. Mild intrapelvic biliary ductal dilatation likely chronic postcholecystectomy status. Portal venous system is patent. Adrenal glands, kidneys, spleen, and mildly atrophic pancreas show no gross abnormal. No dilated small bowel, free fluid, or free air. No mesenteric or retroperitoneal lymphadenopathy. However, there is [id number] pancolonic wall thickening. Areas of submucosal fat deposition are present along the right hemicolon. Appendix not visualized. No significant pericolonic inflammatory fat stranding. Bladder partially distended. Uterus surgically absent. Neither ovary is visualized. No abnormal fluid collection in the pelvis or pelvic lymphadenopathy. Bones: No osseous destructive process. Moderate degenerative disc disease L2-L3. IMPRESSION: 1. MODERATE NONSPECIFIC PANCOLITIS. CONSIDER C. DIFFICILE COLITIS OR OTHER INFECTIOUS ETIOLOGIES. IBD IS ALSO A POSSIBILITY. 2. ADDITIONAL FOLD THICKENING IN THE GASTRIC FUNDUS AND PROXIMAL BODY. THERE COULD BE A CONCURRENT GA STRITIS.
[2020-09-06 19:48] VITALS: BP 131/74; PULSE 64; RESP 15; TEMP 98.5
== END 2020-09-06 19:44 | disposition home or self-care (01) ==
LOC: EC 14:13
DX: K29.70 Gastritis, unspecified, without bleeding (principal); E78.5 Hyperlipidemia, unspecified; I10 Essential (primary) hypertension; F41.9 Anxiety disorder, unspecified; F17.200 Nicotine dependence, unspecified, uncomplicated; G40.909 Epilepsy, unspecified, not intractable, without status epilepticus; Z90.89 Acquired absence of other organs; Z90.49 Acquired absence of other specified parts of digestive tract; Z90.710 Acquired absence of both cervix and uterus; Z98.51 Tubal ligation status; Z90.09 Acquired absence of other part of head and neck
CPT/HCPCS: 36415; 80053; 82150; 83690; 85025; 81001; 74177; 99284; 96374; 96375 ×3; 96376; 96361; J2405; J1642; J1170; C9113; Q9967

== ENCOUNTER 2020-09-16 23:30 | Emergency (ER) | payer OTHER ==
[2020-09-16 23:43] VITALS: TEMP 97.9
[2020-09-16] MEDS ORDERED: diphenhydrAMINE 50 MG/ML 1 ML VIAL IVP STA (23:50)
[2020-09-16] MEDS ORDERED: ONDANSETRON 4 MG/2 ML VIAL IVP STA (23:50)
[2020-09-16] MEDS ORDERED: SODIUM CHLORIDE 0.9% 1,000 ML IV STA (23:50)
[2020-09-16] MEDS ORDERED: HYDROmorphone 1 MG/ML 1 ML SYRINGE IVP STA (23:50)
[2020-09-17] MEDS ORDERED: HYDROmorphone 1 MG/ML 1 ML SYRINGE IVP STA (00:37)
[2020-09-17] MEDS ORDERED: HYDROmorphone 0.5 MG/0.5 ML SYRINGE IVP STA (01:31)
--- NOTE | 2020-09-17 01:50 | ED ---
Headache HPI - General Chief Complaint: Headache Stated Complaint: Migraine Time Seen by Provider: 09/16/20 23:47 Mode of arrival: ambulatory Limitations: no limitations - History of Present Illness Initial Comments: Patient is a 50-year-old female presenting to the emergency Department with complaints of a headache for the past 4 days. She's also had some nausea and vomiting as well. Her appetite has been very much decrease in the last few days. She has a history of migraines, she is well-known to this ER. She follows with the migraine clinic at [facility]. She states she's been waiting for a new medication however she's not been able to get this medication. She states this headache feels like her typical migraines. She denies any falls or trauma. She denies any visual changes. She denies any chest pain or shortness of breath. She has no further complaints at this time. Upon arrival to the ER, her vitals are stable. - Related Data Home Medications Medication Instructions Recorded Confirmed Atorvastatin [Lipitor] 40 mg PO HS 04/02/17 09/06/20 Lacosamide [Vimpat] 100 mg PO BID 06/04/17 09/06/20 HYDROcodone/APAP 7.5-325MG [[place] 1 tab PO TID PRN 07/06/17 09/06/20 7.5-325] Albuterol Sulfate [Ventolin HFA] 2 puff INHALATION RT-Q6H PRN 11/07/19 09/06/20 Galcanezumab-Gnlm [Emgality] 120 mg SQ Q30D 04/28/20 09/06/20 amLODIPine [Norvasc] 5 mg PO DAILY 04/28/20 09/06/20 hydrOXYzine pamoate [Vistaril] 25 mg PO TID PRN 09/06/20 09/06/20 Previous Rx's Medication Instructions Recorded Ondansetron Odt [Zofran Odt] 4 mg PO Q8HR PRN #10 tab 09/17/20 Allergies Allergy/AdvReac Type Severity Reaction Status Date / Time dihydroergotamine Allergy Unknown Unknown Verified 09/16/20 23:43 [From Migranal] gabapentin [From Neurontin] Allergy Itching/Swe Verified 09/16/20 23:43 lling latex Allergy Anaphylaxis Verified 09/16/20 23:43 naproxen [From Naprosyn] Allergy Anaphylaxis Verified 09/16/20 23:43 Penicillins Allergy Anaphylaxis Verified 09/16/20 23:43 prednisone Allergy Swelling Verified 09/16/20 23:43 quetiapine fumarate Allergy Itching, Verified 09/16/20 23:43 [From Seroquel] leg cramps rofecoxib [From Vioxx] Allergy Itching, Verified 09/16/20 23:43 leg cramps terfenadine [From Seldane] Allergy Rash/Hives Verified 09/16/20 23:43 tramadol Allergy Nausea & Verified 09/16/20 23:43 Vomiting/LEG CRAMPS/HEART FLUTTERS calcium carbonate [From DHEA] AdvReac Chest Pain Verified 09/16/20 23:43 calcium phosphate,dibasic AdvReac Chest Pain Verified 09/16/20 23:43 [From DHEA] clindamycin AdvReac muscle Verified 09/16/20 23:43 cramps clonidine AdvReac fast Verified 09/16/20 23:43 heartbeat, migraine dextromethorphan HBr AdvReac face/neck Verified 09/16/20 23:43 [From NyQuil] flushing diazepam [From Valium] AdvReac Nausea & Verified 09/16/20 23:43 Vomiting divalproex sodium AdvReac Nausea & Verified 09/16/20 23:43 [From Depakote] Vomiting doxylamine [From NyQuil] AdvReac face "beet Verified 09/16/20 23:43 red", elevated temp. ibuprofen [From Motrin] AdvReac abdominal Verified 09/16/20 23:43 & muscle cramps indomethacin [From Indocin] AdvReac Abdominal Verified 09/16/20 23:43 Pain,N/V ketorolac tromethamine AdvReac "built up Verified 09/16/20 23:43 [From Toradol] in system", had to be given something to reverse lorazepam [From Ativan] AdvReac Nausea & Verified 09/16/20 23:43 Vomiting memantine [From Namenda] AdvReac Itching Verified 09/16/20 23:43 metoclopramide HCl AdvReac muscle Verified 09/16/20 23:43 [From Reglan] cramps nortriptyline [From Pamelor] AdvReac Chest Pain Verified 09/16/20 23:43 prasterone (DHEA) [From DHEA] AdvReac Chest Pain Verified 09/16/20 23:43 prochlorperazine AdvReac leg Verified 09/16/20 23:43 [From Compazine] cramping propranolol AdvReac Chest Pain Verified 09/16/20 23:43 pseudoephedrine HCl AdvReac face "beet Verified 09/16/20 23:43 [From NyQuil] red", elevated temp. quetiapine [From Seroquel] AdvReac leg Verified 09/16/20 23:43 cramping sumatriptan [From Imitrex] AdvReac migrane Verified 09/16/20 23:43 sumatriptan succinate AdvReac migrane Verified 09/16/20 23:43 [From Imitrex] topiramate [From Topamax] AdvReac "built up Verified 09/16/20 23:43 in system", had to be given something to reverse trazodone AdvReac "built up Verified 09/16/20 23:43 in system", had to be given something to reverse zolpidem tartrate AdvReac "Became Verified 09/16/20 23:43 [From Ambien] violent with no memory" zonisamide [From Zonegran] AdvReac inability Verified 09/16/20 23:43 to eat artificial sweetener AdvReac SEVERE Uncoded 09/16/20 23:43 MIGRAINE HEADACHE Review of Systems ROS Statement: Those systems with pertinent positive or pertinent negative responses have been documented in the HPI. ROS Other: All systems not noted in ROS Statement are negative. Past Medical History Past Medical History: Hyperlipidemia, Hypertension, Seizure Disorder Additional Past Medical History / Comment(s): Migraines, viral meningitis x3 as a child, 1995, 2000, chronic back pain, nerve blocks 08/2016 and 12/2016. Last seizure 05/26/19, "ABSENT SEIZURES. HX TACHYCARDIA, GB/CIPD, PTSD History of Any Multi-Drug Resistant Organisms: None Reported Past Surgical History: Appendectomy, Section, Cholecystectomy, Hernia Repair, Hysterectomy, Orthopedic Surgery, Tonsillectomy, Tubal Ligation Additional Past Surgical History / Comment(s): Hiatal Hernia, umbilical hernia repair, left rotator cuff repair, bilateral knee scopes, pain clinic procedures- occipital nerve block. abd exploratory sx(endometreosis), 3 abd scopes 1981, 1989, 1991), lumbar puncture. EGD. nerve biopsy, salvalry gland biospy Past Anesthesia/Blood Transfusion Reactions: No Reported Reaction Additional Past Anesthesia/Blood Transfusion Reaction / Comment(s): Claustrophobic Past Psychological History: Anxiety, Bipolar, Panic Disorder, PTSD Smoking Status: Current every day smoker Past Alcohol Use History: None Reported Past Drug Use History: None Reported - Past Family History Mother Family Medical History: Cancer, Dementia, Diabetes Mellitus, GERD/Reflux, Hyperlipidemia, Hypertension, Thyroid Disorder Additional Family Medical History / Comment(s): Quad CABG, cardiac stents, toes ampuated. Father History Unknown: Yes Family Medical History: No Reported History General Exam - General Exam Comments Initial Comments: GENERAL: Patient is well-developed and well-nourished. Patient is nontoxic and in moderate distress. HEAD: Atraumatic, normocephalic. EYES: Pupils equal round and reactive to light, extraocular movements intact, sclera anicteric, conjunctiva are normal. Eyelids were unremarkable. Light sensitive. ENT: TMs normal, nares patent, oropharynx clear without exudates. Moist mucous membranes. NECK: Normal range of motion, supple without lymphadenopathy or JVD. LUNGS: Unlabored respirations. Breath sounds clear to auscultation bilaterally and eq ual. No wheezes rales or rhonchi. HEART: Regular rate and rhythm without murmurs, rubs or gallops. ABDOMEN: Soft, nontender, normoactive bowel sounds. No guarding, no rebound. No masses appreciated. : Deferred MUSCULOSKELETAL: Normal extremities with adequate strength and normal range of motion, no pitting or edema. No clubbing or cyanosis. NEUROLOGICAL: Patient is alert and oriented x 3. Motor and sensory are also intact. Cranial nerves II through XII grossly intact. Symmetrical smile. Normal speech, normal gait. PSYCH: Normal mood, normal affect. SKIN: Warm, Dry, normal turgor, no rashes or lesions noted. Limitations: no limitations Course Vital Signs 09/16/20 09/17/20 09/17/20 23:39 01:28 01:32 Temperature 97.9 F Pulse Rate 101 H 94 85 Respiratory 20 22 20 Rate Blood Pressure 129/90 148/104 O2 Sat by Pulse 96 99 95 Oximetry Medical Decision Making - Medical Decision Making Patient is a 50-year-old female with history of migraines, well-known to this ER, presenting with a migraine for the past 4 days. Positive nausea and vomiting as well. Her vital signs are stable. This feels like her typical migraines. She does follow with the migraine clinic at [facility]. Her exam is otherwise unremarkable, no acute neuro deficits. Patient was given fluids, pain control. She does report improvement in her symptoms and is ready to be discharged. I recommended following up with her migraine doctor. She is in agreement with this plan of care. Return parameters were discussed with her and she verbalized understanding. Case discussed with Dr. Mclaughlin. Disposition Clinical Impression: Headache Disposition: HOME SELF-CARE Condition: Stable Instructions (If sedation given, give patient instructions): Acute Headache (ED) Additional Instructions: Please return to the Emergency Department if symptoms worsen or any other concerns. Please follow-up with your migraine clinic. May take zofran for additional nausea. Prescriptions: Ondansetron Odt [Zofran Odt] 4 mg PO Q8HR PRN #10 tab PRN Reason: Nausea Is patient prescribed a controlled substance at d/c from ED?: No Referrals: José Reece MD [Primary Care Provider] - 1-2 days Time of Disposition: 01:50
[2020-09-17 02:25] VITALS: BP 127/95; PULSE 92; RESP 18
== END 2020-09-17 02:25 | disposition home or self-care (01) ==
LOC: EC 23:30
DX: R51.9 Headache, unspecified (principal); R11.2 Nausea with vomiting, unspecified; F17.200 Nicotine dependence, unspecified, uncomplicated; I10 Essential (primary) hypertension; E78.5 Hyperlipidemia, unspecified; Z79.899 Other long term (current) drug therapy; Z88.6 Allergy status to analgesic agent; Z88.8 Allergy status to other drugs, medicaments and biological substances; Z91.040 Latex allergy status; Z88.0 Allergy status to penicillin; Z88.1 Allergy status to other antibiotic agents; Z91.018 Allergy to other foods
CPT/HCPCS: 99284; 96374; 96375; 96376; J1200; J2405; J1170 ×2

== ENCOUNTER 2020-10-04 18:14 | Emergency (ER) | payer OTHER ==
[2020-10-04 18:43] VITALS: RESP 18
[2020-10-04] MEDS ORDERED: FAMOTIDINE 20 MG/2 ML VIAL IV STA (19:20)
[2020-10-04] MEDS ORDERED: SODIUM CHLORIDE 0.9% 1,000 ML IV STA (19:20)
[2020-10-04] MEDS ORDERED: ONDANSETRON 4 MG/2 ML VIAL IVP STA (19:20)
--- NOTE | 2020-10-04 19:25 | ED ---
General Adult HPI - General Source: patient, RN notes reviewed Mode of arrival: wheelchair Limitations: no limitations <Benson Herrera - Last Filed: 10/04/20 19:20> <Joni Mclaughlin - Last Filed: 10/05/20 02:09> - General Chief complaint: Nausea/Vomiting/Diarrhea Stated complaint: vomiting/nausea Time Seen by Provider: 10/04/20 18:48 - History of Present Illness Initial comments: Patient is a pleasant 50-year-old female presenting to the emergency Department with complaints of nausea vomiting. Symptoms have been chronic for the past year. Patient feels her Zofran is not working well at this time. Patient is galan ving some mild abdominal discomfort secondary to vomiting. No fevers. No chest pain. No diarrhea. Decreased oral intake and difficulty tolerating her medications. (Benson Herrera) - Related Data Home Medications Medication Instructions Recorded Confirmed Atorvastatin [Lipitor] 40 mg PO HS 04/02/17 10/04/20 Lacosamide [Vimpat] 100 mg PO BID 06/04/17 10/04/20 HYDROcodone/APAP 7.5-325MG [[place] 1 tab PO TID PRN 07/06/17 10/04/20 7.5-325] Galcanezumab-Gnlm [Emgality] 120 mg SQ Q30D 04/28/20 10/04/20 amLODIPine [Norvasc] 5 mg PO DAILY 04/28/20 10/04/20 hydrOXYzine pamoate [Vistaril] 25 mg PO TID PRN 09/06/20 10/04/20 Allergies Allergy/AdvReac Type Severity Reaction Status Date / Time dihydroergotamine Allergy Unknown Unknown Verified 10/04/20 19:45 [From Migranal] gabapentin [From Neurontin] Allergy Itching/Swe Verified 10/04/20 19:45 lling latex Allergy Anaphylaxis Verified 10/04/20 19:45 naproxen [From Naprosyn] Allergy Anaphylaxis Verified 10/04/20 19:45 Penicillins Allergy Anaphylaxis Verified 10/04/20 19:45 prednisone Allergy Swelling Verified 10/04/20 19:45 quetiapine fumarate Allergy Itching, Verified 10/04/20 19:45 [From Seroquel] leg cramps rofecoxib [From Vioxx] Allergy Itching, Verified 10/04/20 19:45 leg cramps terfenadine [From Seldane] Allergy Rash/Hives Verified 10/04/20 19:45 tramadol Allergy Nausea & Verified 10/04/20 19:45 Vomiting/LEG CRAMPS/HEART FLUTTERS calcium carbonate [From DHEA] AdvReac Chest Pain Verified 10/04/20 19:45 calcium phosphate,dibasic AdvReac Chest Pain Verified 10/04/20 19:45 [From DHEA] clindamycin AdvReac muscle Verified 10/04/20 19:45 cramps clonidine AdvReac fast Verified 10/04/20 19:45 heartbeat, migraine dextromethorphan HBr AdvReac face/neck Verified 10/04/20 19:45 [From NyQuil] flushing diazepam [From Valium] AdvReac Nausea & Verified 10/04/20 19:45 Vomiting divalproex sodium AdvReac Nausea & Verified 10/04/20 19:45 [From Depakote] Vomiting doxylamine [From NyQuil] AdvReac face "beet Verified 10/04/20 19:45 red", elevated temp. ibuprofen [From Motrin] AdvReac abdominal Verified 10/04/20 19:45 & muscle cramps indomethacin [From Indocin] AdvReac Abdominal Verified 10/04/20 19:45 Pain,N/V ketorolac tromethamine AdvReac "built up Verified 10/04/20 19:45 [From Toradol] in system", had to be given something to reverse lorazepam [From Ativan] AdvReac Nausea & Verified 10/04/20 19:45 Vomiting memantine [From Namenda] AdvReac Itching Verified 10/04/20 19:45 metoclopramide HCl AdvReac muscle Verified 10/04/20 19:45 [From Reglan] cramps nortriptyline [From Pamelor] AdvReac Chest Pain Verified 10/04/20 19:45 prasterone (DHEA) [From DHEA] AdvReac Chest Pain Verified 10/04/20 19:45 prochlorperazine AdvReac leg Verified 10/04/20 19:45 [From Compazine] cramping propranolol AdvReac Chest Pain Verified 10/04/20 19:45 pseudoephedrine HCl AdvReac face "beet Verified 10/04/20 19:45 [From NyQuil] red", elevated temp. quetiapine [From Seroquel] AdvReac leg Verified 10/04/20 19:45 cramping sumatriptan [From Imitrex] AdvReac migrane Verified 10/04/20 19:45 sumatriptan succinate AdvReac migrane Verified 10/04/20 19:45 [From Imitrex] topiramate [From Topamax] AdvReac "built up Verified 10/04/20 19:45 in system", had to be given something to reverse trazodone AdvReac "built up Verified 10/04/20 19:45 in system", had to be given something to reverse zolpidem tartrate AdvReac "Became Verified 10/04/20 19:45 [From Ambien] violent with no memory" zonisamide [From Zonegran] AdvReac inability Verified 10/04/20 19:45 to eat artificial sweetener AdvReac SEVERE Uncoded 10/04/20 18:43 MIGRAINE HEADACHE Review of Systems ROS Other: All systems not noted in ROS Statement are negative. Constitutional: Denies: fever Eyes: Denies: eye pain ENT: Denies: ear pain Respiratory: Denies: cough Cardiovascular: Denies: chest pain Endocrine: Denies: fatigue Gastrointestinal: Reports: as per HPI, nausea, vomiting Genitourinary: Denies: dysuria Musculoskeletal: Denies: back pain Skin: Denies: rash Neurological: Denies: weakness <Benson Herrera - Last Filed: 10/04/20 19:20> ROS Other: All systems not noted in ROS Statement are negative. <Joni Mclaughlin - Last Filed: 10/05/20 02:09> ROS Statement: Those systems with pertinent positive or pertinent negative responses have been documented in the HPI. Past Medical History Past Medical History: Hyperlipidemia, Hypertension, Seizure Disorder Additional Past Medical History / Comment(s): Migraines, viral meningitis x3 as a child, 1995, 2000, chronic back pain, nerve blocks 08/2016 and 12/2016. Last seizure 05/26/19, "ABSENT SEIZURES. HX TACHYCARDIA, GB/CIPD, PTSD History of Any Multi-Drug Resistant Organisms: None Reported Past Surgical History: Appendectomy, Section, Cholecystectomy, Hernia Repair, Hysterectomy, Orthopedic Surgery, Tonsillectomy, Tubal Ligation Additional Past Surgical History / Comment(s): Hiatal Hernia, umbilical hernia repair, left rotator cuff repair, bilateral knee scopes, pain clinic procedures- occipital nerve block. abd exploratory sx(endometreosis), 3 abd scopes 1981, 1989, 1991), lumbar puncture. EGD. nerve biopsy, salvalry gland biospy Past Anesthesia/Blood Transfusion Reactions: No Reported Reaction Additional Past Anesthesia/Blood Transfusion Reaction / Comment(s): Claustrophobic Past Psychological History: Anxiety, Bipolar, Panic Disorder, PTSD Smoking Status: Current every day smoker Past Alcohol Use History: None Reported Past Drug Use History: None Reported - Past Family History Mother Family Medical History: Cancer, Dementia, Diabetes Mellitus, GERD/Reflux, Hyperlipidemia, Hypertension, Thyroid Disorder Additional Family Medical History / Comment(s): Quad CABG, cardiac stents, toes ampuated. Father History Unknown: Yes Family Medical History: No Reported History <Benson Herrera - Last Filed: 10/04/20 19:20> General Exam Limitations: no limitations General appearance: alert, in no apparent distress Eye exam: Present: normal appearance Neck exam: Present: normal inspection Respiratory exam: Present: normal lung sounds bilaterally Cardiovascular Exam: Present: tachycardia GI/Abdominal exam: Present: soft. Absent: tenderness Extremities exam: Present: normal inspection Neurological exam: Present: alert Psychiatric exam: Present: normal affect, normal mood Skin exam: Present: normal color <Benson Herrera - Last Filed: 10/04/20 19:20> Course Vital Signs 10/04/20 10/04/20 18:41 23:29 Temperature 96.9 F L Pulse Rate 115 H 86 Respiratory 18 18 Rate Blood Pressure 114/79 114/82 O2 Sat by Pulse 98 99 Oximetry Medical Decision Making - Lab Data Result diagrams: 10/04/20 20:43 10/04/20 20:43 <Joni Mclaughlin - Last Filed: 10/05/20 02:09> - Lab Data Lab Results 10/04/20 10/04/20 10/04/20 Range/Units 20:43 20:43 20:43 WBC 12.6 H (3.8-10.6) k/uL RBC 5.02 (3.80-5.40) m/uL Hgb 15.4 (11.4-16.0) gm/dL Hct 44.6 (34.0-46.0) % MCV 88.9 (80.0-100.0) fL MCH 30.6 (25.0-35.0) pg MCHC 34.4 (31.0-37.0) g/dL RDW 12.9 (11.5-15.5) % Plt Count 264 (150-450) k/uL MPV 8.9 Neutrophils % 73 % Lymphocytes % 18 % Monocytes % 4 % Eosinophils % 2 % Basophils % 1 % Neutrophils # 9.3 H (1.3-7.7) k/uL Lymphocytes # 2.3 (1.0-4.8) k/uL Monocytes # 0.5 (0-1.0) k/uL Eosinophils # 0.3 (0-0.7) k/uL Basophils # 0.1 (0-0.2) k/uL Sodium 133 L (137-145) mmol/L Potassium 3.2 L (3.5-5.1) mmol/L Chloride 95 L (98-107) mmol/L Carbon Dioxide 30 (22-30) mmol/L Anion Gap 8 mmol/L BUN 14 (7-17) mg/dL Creatinine 0.64 (0.52-1.04) mg/dL Est GFR (CKD-EPI)AfAm >90 (>60 ml/min/1.73 sqM) Est GFR (CKD-EPI)NonAf >90 (>60 ml/min/1.73 sqM) Glucose 111 H (74-99) mg/dL Calcium 9.2 (8.4-10.2) mg/dL Magnesium 2.0 (1.6-2.3) mg/dL Total Bilirubin 0.3 (0.2-1.3) mg/dL AST 19 (14-36) U/L ALT 10 (4-34) U/L Alkaline Phosphatase 158 H (38-126) U/L Total Protein 6.5 (6.3-8.2) g/dL Albumin 3.8 (3.5-5.0) g/dL Amylase 57 (30-110) U/L Lipase 321 H (23-300) U/L Urine Color Yellow Urine Appearance Clear (Clear) Urine pH 6.0 (5.0-8.0) Ur Specific [place] >1.050 H (1.001-1.035) Urine Protein 1+ H (Negative) Urine Glucose (UA) Negative (Negative) Urine Ketones 1+ H (Negative) Urine Blood Moderate H (Negative) Urine Nitrite Negative (Negative) Urine Bilirubin 1+ H (Negative) Urine Urobilinogen 3.0 (<2.0) mg/dL Ur Leukocyte Esterase Negative (Negative) Urine RBC 11 H (0-5) /hpf Urine WBC 3 (0-5) /hpf Ur Squamous Epith Cells 1 (0-4) /hpf Amorphous Sediment Occasional H (None) /hpf Hyaline Casts 17 H (0-2) /lpf Urine Mucus Many H (None) /hpf Disposition <Benson Herrera - Last Filed: 10/04/20 19:20> Is patient prescribed a controlled substance at d/c from ED?: No <Joni Mclaughlin - Last Filed: 10/05/20 02:09> Clinical Impression: Vomiting Disposition: HOME SELF-CARE Condition: Fair Instructions (If sedation given, give patient instructions): Acute Nausea and Vomiting (ED) Referrals: José Reece MD [Primary Care Provider] - 1-2 days
[2020-10-04 20:57] LABS: Basophils # (A) 0.1 k/uL (0-0.2); Basophils % (A) 1 %; Eosinophils # (A) 0.3 k/uL (0-0.7); Eosinophils % (A) 2 %; HCT 44.6 % (34.0-46.0); HGB 15.4 gm/dL (11.4-16.0); Lymphocytes # (A) 2.3 k/uL (1.0-4.8); Lymphocytes % (A) 18 %; MCH 30.6 pg (25.0-35.0); MCHC 34.4 g/dL (31.0-37.0); MCV 88.9 fL (80.0-100.0); Mean Platelet Volume 8.9; Monocytes # (A) 0.5 k/uL (0-1.0); Monocytes % (A) 4 %; Neutrophils # (A) 9.3 k/uL (1.3-7.7); Neutrophils % (A) 73 %; Platelet Count 264 k/uL (150-450); RBC 5.02 m/uL (3.80-5.40); RDW 12.9 % (11.5-15.5); WBC 12.6 k/uL (3.8-10.6)
[2020-10-04 21:18] LABS: ALT 10 U/L (4-34); AST 19 U/L (14-36); African American GFR (CKD) >90 (>60 ml/min/1.73 sqM); Albumin 3.8 g/dL (3.5-5.0); Alkaline Phosphatase 158 U/L (38-126); Amylase 57 U/L (30-110); Anion Gap 8 mmol/L; Blood Urea Nitrogen 14 mg/dL (7-17); Calcium 9.2 mg/dL (8.4-10.2); Carbon Dioxide 30 mmol/L (22-30); Chloride 95 mmol/L (98-107); Glucose 111 mg/dL (74-99); Lipase 321 U/L (23-300); Non-African American GFR(CKD) >90 (>60 ml/min/1.73 sqM); Potassium 3.2 mmol/L (3.5-5.1); Sodium 133 mmol/L (137-145); Total Bilirubin 0.3 mg/dL (0.2-1.3); Total Protein 6.5 g/dL (6.3-8.2)
--- NOTE | 2020-10-04 21:40 | XR ---
EXAM: Abdomen radiograph. HISTORY: Nausea and vomiting. TECHNIQUE: Upright AP views. COMPARISON: CT 09/06/2020. FINDINGS: There are nondilated bowel loops with a nonobstructive pattern. No pneumoperitoneum. Cholecystectomy clips seen. There are no pathologic calcifications. No acute osseous abnormality seen. IMPRESSION: No acute process.
[2020-10-04] MEDS ORDERED: PROMETHAZINE 25 MG TAB PO STA (21:53)
[2020-10-04 22:14] LABS: Amorphous Sediment,Urine Occasional /hpf; Appearance,Urine Clear (Clear); Bilirubin,Urine 1+ (Negative); Blood,Urine Moderate (Negative); Color,Urine Yellow; Glucose,Urine (UA) Negative (Negative); Hyaline Casts,Urine 17 /lpf (0-2); Ketones,Urine 1+ (Negative); Leukocyte Esterase,Urine Negative (Negative); Mucus,Urine Many /hpf; Nitrite,Urine Negative (Negative); Protein,Urine 1+ (Negative); RBC,Urine 11 /hpf (0-5); Squamous Epithelial Cell,Urine 1 /hpf (0-4); WBC,Urine 3 /hpf (0-5)
[2020-10-04 22:16] LABS: Specific Gravity,Urine >1.050 (1.001-1.035)
[2020-10-05 02:30] VITALS: BP 110/72; PULSE 82; TEMP 97.2
== END 2020-10-05 02:25 | disposition home or self-care (01) ==
LOC: EC 18:14
DX: R11.2 Nausea with vomiting, unspecified (principal); I10 Essential (primary) hypertension; E78.5 Hyperlipidemia, unspecified; G40.909 Epilepsy, unspecified, not intractable, without status epilepticus; F17.200 Nicotine dependence, unspecified, uncomplicated; F31.9 Bipolar disorder, unspecified; F41.9 Anxiety disorder, unspecified; Z79.891 Long term (current) use of opiate analgesic; Z88.1 Allergy status to other antibiotic agents; Z88.5 Allergy status to narcotic agent; Z88.6 Allergy status to analgesic agent; Z88.8 Allergy status to other drugs, medicaments and biological substances; Z83.3 Family history of diabetes mellitus; Z82.49 Family history of ischemic heart disease and other diseases of the circulatory system
CPT/HCPCS: 36415; 80053; 82150; 83690; 83735; 85025; 81001; 74018; 96374; 96375; 96361 ×2; 99283; J2405

== ENCOUNTER 2020-10-09 | Emergency (ER) | payer OTHER | END 2020-10-09 23:10 | disposition home or self-care (01) ==

== ENCOUNTER 2020-10-10 19:31 | Inpatient (IN) | payer OTHER ==
[2020-10-10] MEDS ORDERED: ONDANSETRON 4 MG/2 ML VIAL IVP STA (20:01)
[2020-10-10] MEDS ORDERED: SODIUM CHLORIDE 0.9% 1,000 ML IV STA (20:01)
[2020-10-10] MEDS ORDERED: PANTOPRAZOLE 40 MG/10 ML VIAL IVP STA (20:01)
[2020-10-10] MEDS ORDERED: HYDROmorphone 0.5 MG/0.5 ML SYRINGE IVP STA (20:01)
--- NOTE | 2020-10-10 20:07 | ED ---
Abdominal Pain HPI - General Chief Complaint: Abdominal Pain Stated Complaint: R abd pain,Vomiting Time Seen by Provider: 10/10/20 19:49 Source: patient Mode of arrival: ambulatory - History of Present Illness Initial Comments: 50-year-old female presents to emergency Department with a chief complaint of abdominal pain nausea vomiting. Patient reports she was seen yesterday some emergency department for the same chief complaint. States the pain is in the right lower quadrant along with nausea and multiple episodes of nonbilious and nonbloody vomiting but denies any constipation diarrhea. Patient reports appendectomy over a decade ago. She also has a cholecystectomy, hysterectomy with bilateral salpingo-oophorectomy. She denies any fevers or chills. She denies any hematuria, hematochezia or melena. - Related Data Home Medications Medication Instructions Recorded Confirmed Atorvastatin [Lipitor] 40 mg PO HS 04/02/17 10/04/20 Lacosamide [Vimpat] 100 mg PO BID 06/04/17 10/04/20 HYDROcodone/APAP 7.5-325MG [[place] 1 tab PO TID PRN 07/06/17 10/04/20 7.5-325] Galcanezumab-Gnlm [Emgality] 120 mg SQ Q30D 04/28/20 10/04/20 amLODIPine [Norvasc] 5 mg PO DAILY 04/28/20 10/04/20 hydrOXYzine pamoate [Vistaril] 25 mg PO TID PRN 09/06/20 10/04/20 Allergies Allergy/AdvReac Type Severity Reaction Status Date / Time dihydroergotamine Allergy Unknown Unknown Verified 10/10/20 19:43 [From Migranal] gabapentin [From Neurontin] Allergy Itching/Swe Verified 10/10/20 19:43 lling latex Allergy Anaphylaxis Verified 10/10/20 19:43 naproxen [From Naprosyn] Allergy Anaphylaxis Verified 10/10/20 19:43 Penicillins Allergy Anaphylaxis Verified 10/10/20 19:43 prednisone Allergy Swelling Verified 10/10/20 19:43 quetiapine fumarate Allergy Itching, Verified 10/10/20 19:43 [From Seroquel] leg cramps rofecoxib [From Vioxx] Allergy Itching, Verified 10/10/20 19:43 leg cramps terfenadine [From Seldane] Allergy Rash/Hives Verified 10/10/20 19:43 tramadol Allergy Nausea & Verified 10/10/20 19:43 Vomiting/LEG CRAMPS/HEART FLUTTERS calcium carbonate [From DHEA] AdvReac Chest Pain Verified 10/10/20 19:43 calcium phosphate,dibasic AdvReac Chest Pain Verified 10/10/20 19:43 [From DHEA] clindamycin AdvReac muscle Verified 10/10/20 19:43 cramps clonidine AdvReac fast Verified 10/10/20 19:43 heartbeat, migraine dextromethorphan HBr AdvReac face/neck Verified 10/10/20 19:43 [From NyQuil] flushing diazepam [From Valium] AdvReac Nausea & Verified 10/10/20 19:43 Vomiting divalproex sodium AdvReac Nausea & Verified 10/10/20 19:43 [From Depakote] Vomiting doxylamine [From NyQuil] AdvReac face "beet Verified 10/10/20 19:43 red", elevated temp. ibuprofen [From Motrin] AdvReac abdominal Verified 10/10/20 19:43 & muscle cramps indomethacin [From Indocin] AdvReac Abdominal Verified 10/10/20 19:43 Pain,N/V ketorolac tromethamine AdvReac "built up Verified 10/10/20 19:43 [From Toradol] in system", had to be given something to reverse lorazepam [From Ativan] AdvReac Nausea & Verified 10/10/20 19:43 Vomiting memantine [From Namenda] AdvReac Itching Verified 10/10/20 19:43 metoclopramide HCl AdvReac muscle Verified 10/10/20 19:43 [From Reglan] cramps nortriptyline [From Pamelor] AdvReac Chest Pain Verified 10/10/20 19:43 prasterone (DHEA) [From DHEA] AdvReac Chest Pain Verified 10/10/20 19:43 prochlorperazine AdvReac leg Verified 10/10/20 19:43 [From Compazine] cramping propranolol AdvReac Chest Pain Verified 10/10/20 19:43 pseudoephedrine HCl AdvReac face "beet Verified 10/10/20 19:43 [From NyQuil] red", elevated temp. quetiapine [From Seroquel] AdvReac leg Verified 10/10/20 19:43 cramping sumatriptan [From Imitrex] AdvReac migrane Verified 10/10/20 19:43 sumatriptan succinate AdvReac migrane Verified 10/10/20 19:43 [From Imitrex] topiramate [From Topamax] AdvReac "built up Verified 10/10/20 19:43 in system", had to be given something to reverse trazodone AdvReac "built up Verified 10/10/20 19:43 in system", had to be given something to reverse zolpidem tartrate AdvReac "Became Verified 10/10/20 19:43 [From Ambien] violent with no memory" zonisamide [From Zonegran] AdvReac inability Verified 10/10/20 19:43 to eat artificial sweetener AdvReac SEVERE Uncoded 10/10/20 19:43 MIGRAINE HEADACHE Review of Systems ROS Statement: Those systems with pertinent positive or pertinent negative responses have been documented in the HPI. ROS Other: All systems not noted in ROS Statement are negative. Past Medical History Past Medical History: Hyperlipidemia, Hypertension, Seizure Disorder Additional Past Medical History / Comment(s): Migraines, viral meningitis x3 as a child, 1995, 2000, chronic back pain, nerve blocks 08/2016 and 12/2016. Last seizure 05/26/19, "ABSENT SEIZURES. HX TACHYCARDIA, GB/CIPD, PTSD History of Any Multi-Drug Resistant Organisms: None Reported Past Surgical History: Appendectomy, Section, Cholecystectomy, Hernia Repair, Hysterectomy, Orthopedic Surgery, Tonsillectomy, Tubal Ligation Additional Past Surgical History / Comment(s): Hiatal Hernia, umbilical hernia repair, left rotator cuff repair, bilateral knee scopes, pain clinic procedures- occipital nerve block. abd exploratory sx(endometreosis), 3 abd scopes 1981, 1989, 1991), lumbar puncture. EGD. nerve biopsy, salvalry gland biospy Past Anesthesia/Blood Transfusion Reactions: No Reported Reaction Additional Past Anesthesia/Blood Transfusion Reaction / Comment(s): Claustrophobic Past Psychological History: Anxiety, Bipolar, Panic Disorder, PTSD Smoking Status: Current every day smoker Past Alcohol Use History: None Reported Past Drug Use History: None Reported - Past Family History Mother Family Medical History: Cancer, Dementia, Diabetes Mellitus, GERD/Reflux, Hyperlipidemia, Hypertension, Thyroid Disorder Additional Family Medical History / Comment(s): Quad CABG, cardiac stents, toes ampuated. Father History Unknown: Yes Family Medical History: No Reported History General Exam Limitations: no limitations General appearance: alert, in no apparent distress Eye exam: Present: normal appearance, PERRL, EOMI Pupils: Present: normal accommodation ENT exam: Present: normal exam, normal oropharynx, mucous membranes moist Neck exam: Present: normal inspection, full ROM. Absent: tenderness Respiratory exam: Present: normal lung sounds bilaterally. Absent: respiratory distress, wheezes, rales Cardiovascular Exam: Present: regular rate, normal rhythm, normal heart sounds. Absent: systolic murmur GI/Abdominal exam: Present: soft. Absent: distended, tenderness, guarding, rebound Extremities exam: Present: normal inspection, full ROM, normal capillary refill. Absent: tenderness, pedal edema, joint swelling Back exam: Present: normal inspection, full ROM. Absent: tenderness, CVA tenderness (R), CVA tenderness (L) Neurological exam: Present: alert, oriented X3 Psychiatric exam: Present: normal affect, normal mood Skin exam: Present: warm, dry, intact, normal color Course Vital Signs 10/10/20 19:43 Temperature 98.4 F Pulse Rate 122 H Respiratory 22 Rate Blood Pressure 135/95 O2 Sat by Pulse 97 Oximetry Medical Decision Making - Medical Decision Making 50-year-old female presents to emergency Department with a chief complaint of abdominal pain nausea vomiting. On physical examination, right lower quadrant abdominal tenderness. She does not have an appendix. Laboratory work shows no acute findings. She does have hypokalemia with a potassium of 3.0. Patient ref used the oral potassium. She will be given IV potassium. UA is unremarkable. Patient was given multiple rounds of analgesia with some improvement in symptoms but is still persistent. Nausea has improved. She'll be continued on IV fluids. She will be admitted for intractable nausea vomiting with consult to . Case discussed with Dr. Plascencia I spoke with EVERETT Booker who will admit for Dr. Wilson. - Lab Data Result diagrams: 10/10/20 20:31 10/10/20 20:31 Lab Results 10/10/20 10/10/2021 Range/Units 20:31 20:31 20:31 WBC 11.4 H (3.8-10.6) k/uL RBC 4.62 (3.80-5.40) m/uL Hgb 14.4 (11.4-16.0) gm/dL Hct 40.9 (34.0-46.0) % MCV 88.5 (80.0-100.0) fL MCH 31.2 (25.0-35.0) pg MCHC 35.2 (31.0-37.0) g/dL RDW 13.0 (11.5-15.5) % Plt Count 311 (150-450) k/uL MPV 8.2 Neutrophils % 71 % Lymphocytes % 21 % Monocytes % 5 % Eosinophils % 1 % Basophils % 0 % Neutrophils # 8.1 H (1.3-7.7) k/uL Lymphocytes # 2.4 (1.0-4.8) k/uL Monocytes # 0.6 (0-1.0) k/uL Eosinophils # 0.1 (0-0.7) k/uL Basophils # 0.1 (0-0.2) k/uL Sodium 136 L (137-145) mmol/L Potassium 3.0 L (3.5-5.1) mmol/L Chloride 96 L (98-107) mmol/L Carbon Dioxide 29 (22-30) mmol/L Anion Gap 11 mmol/L BUN <2 L (7-17) mg/dL Creatinine 0.63 (0.52-1.04) mg/dL Est GFR (CKD-EPI)AfAm >90 (>60 ml/min/1.73 sqM) Est GFR (CKD-EPI)NonAf >90 (>60 ml/min/1.73 sqM) Glucose 104 H (74-99) mg/dL Calcium 9.0 (8.4-10.2) mg/dL Total Bilirubin 0.3 (0.2-1.3) mg/dL AST 22 (14-36) U/L ALT 14 (4-34) U/L Alkaline Phosphatase 135 H (38-126) U/L Total Protein 6.3 (6.3-8.2) g/dL Albumin 3.7 (3.5-5.0) g/dL Lipase 438 H (23-300) U/L Urine Color Light Yellow Urine Appearance Clear (Clear) Urine pH 6.0 (5.0-8.0) Ur Specific [place] 1.004 (1.001-1.035) Urine Protein Negative (Negative) Urine Glucose (UA) Negative (Negative) Urine Ketones Negative (Negative) Urine Blood Negative (Negative) Urine Nitrite Negative (Negative) Urine Bilirubin Negative (Negative) Urine Urobilinogen <2.0 (<2.0) mg/dL Ur Leukocyte Esterase Negative (Negative) Disposition Clinical Impression: Intractable abdominal pain Disposition: ADMITTED IP TO THIS HOSP Condition: Stable Instructions (If sedation given, give patient instructions): Abdominal Pain (ED) Is patient prescribed a controlled substance at d/c from ED?: No Referrals: José Reece MD [Primary Care Provider] - 1-2 days Time of Disposition: 22:19
[2020-10-10 20:44] LABS: Basophils # (A) 0.1 k/uL (0-0.2); Basophils % (A) 0 %; Eosinophils # (A) 0.1 k/uL (0-0.7); Eosinophils % (A) 1 %; HCT 40.9 % (34.0-46.0); HGB 14.4 gm/dL (11.4-16.0); Lymphocytes # (A) 2.4 k/uL (1.0-4.8); Lymphocytes % (A) 21 %; MCH 31.2 pg (25.0-35.0); MCHC 35.2 g/dL (31.0-37.0); MCV 88.5 fL (80.0-100.0); Mean Platelet Volume 8.2; Monocytes # (A) 0.6 k/uL (0-1.0); Monocytes % (A) 5 %; Neutrophils # (A) 8.1 k/uL (1.3-7.7); Neutrophils % (A) 71 %; Platelet Count 311 k/uL (150-450); RBC 4.62 m/uL (3.80-5.40); WBC 11.4 k/uL (3.8-10.6)
[2020-10-10 20:53] LABS: ALT 14 U/L (4-34); AST 22 U/L (14-36); African American GFR (CKD) >90 (>60 ml/min/1.73 sqM); Albumin 3.7 g/dL (3.5-5.0); Alkaline Phosphatase 135 U/L (38-126); Anion Gap 11 mmol/L; Blood Urea Nitrogen <2 mg/dL (7-17); Carbon Dioxide 29 mmol/L (22-30); Chloride 96 mmol/L (98-107); Glucose 104 mg/dL (74-99); Lipase 438 U/L (23-300); Non-African American GFR(CKD) >90 (>60 ml/min/1.73 sqM); Sodium 136 mmol/L (137-145); Total Bilirubin 0.3 mg/dL (0.2-1.3); Total Protein 6.3 g/dL (6.3-8.2)
[2020-10-10] MEDS ORDERED: POTASSIUM CHLORIDE ER 20 MEQ TAB.ER PO STA (21:49)
[2020-10-10] MEDS ORDERED: HYDROmorphone 1 MG/ML 1 ML SYRINGE IVP STA (21:57)
[2020-10-10 22:14] LABS: Appearance,Urine Clear (Clear); Bilirubin,Urine Negative (Negative); Blood,Urine Negative (Negative); Color,Urine Light Yellow; Glucose,Urine (UA) Negative (Negative); Ketones,Urine Negative (Negative); Leukocyte Esterase,Urine Negative (Negative); Nitrite,Urine Negative (Negative); Protein,Urine Negative (Negative); Specific Gravity,Urine 1.004 (1.001-1.035); Urobilinogen,Urine <2.0 mg/dL (<2.0)
[2020-10-10] MEDS ORDERED: ONDANSETRON 4 MG/2 ML VIAL IVP PRN (22:49)
[2020-10-10] MEDS ORDERED: ACETAMINOPHEN TAB 325 MG TAB PO PRN (22:49)
[2020-10-10] MEDS ORDERED: NALOXONE 0.4 MG/ML 1 ML VIAL IV PRN (22:49)
[2020-10-11] MEDS ORDERED: HYDROmorphone 0.5 MG/0.5 ML SYRINGE IVP STA (00:25)
[2020-10-11] MEDS: SODIUM CHLORIDE 0.9% 1,000 ML IV SCH ×2 (00:41→11:35)
[2020-10-11] MEDS: LACOSAMIDE 50 MG TABLET PO SCH ×3 (00:57→20:58)
[2020-10-11] MEDS: PRAZOSIN 1 MG CAP PO SCH ×2 (00:57→20:58)
[2020-10-11] MEDS: ATORVASTATIN 40 MG TAB PO SCH ×2 (00:57→20:58)
[2020-10-11] MEDS: POTASSIUM CHLORIDE 10 MEQ in WATER FOR INJECTION 1 100ML.BAG IVPB SCH ×2 (01:05→02:17)
[2020-10-11] MEDS: ONDANSETRON 4 MG/2 ML VIAL IVP PRN ×4 (02:12→20:11)
[2020-10-11] MEDS: MAGNESIUM SULFATE-D5W PMX 1 GM in DEXTROSE/WATER 1 100ML.BAG IVPB SCH ×2 (03:21→04:30)
[2020-10-11] MEDS: HYDROmorphone 1 MG/ML 1 ML SYRINGE IVP PRN ×4 (04:30→20:10)
[2020-10-11] MEDS: amLODIPine 5 MG TAB PO SCH (08:23)
[2020-10-11] MEDS ORDERED: PANTOPRAZOLE 40 MG/10 ML VIAL IV SCH (09:00)
[2020-10-11 11:15] VITALS: BMI 29.2
--- NOTE | 2020-10-11 11:16 | US ---
EXAMINATION TYPE: US abdomen complete DATE OF EXAM: 10/11/2020 COMPARISON: CT 10/09/2020 CLINICAL HISTORY: Abdominal pain . Vomiting EXAM MEASUREMENTS: Liver Length: 12.8 cm Gallbladder Wall: Surgically absent CBD: 0.8 cm Spleen: 8.1 cm Right Kidney: 9.3 x 4.4 x 4.0 cm Left Kidney: 9.9 x 5.3 x 5.5 cm Pancreas: Partially obscured by bowel gas Liver: Heterogeneous, unable to visualize area seen on CT 10/09/2020 Gallbladder: Surgically absent Evidence for sonographic [place]'s sign: No CBD: wnl post cholecystectomy Spleen: wnl Right Kidney: No hydronephrosis or renal calculi seen Left Kidney: No hydronephrosis or masses seen Upper IVC: wnl Abd Aorta: wnl as visualized The liver is heterogeneous. The intrahepatic portion of the IVC and proximal abdominal aorta are wit hin normal limits. Common bile duct is unremarkable. The visualized portions of the pancreas are u nremarkable. The spleen is unremarkable. No hydronephrosis or renal calculi are seen. IMPRESSION: 1. The liver parenchyma is heterogeneous. The previously seen hypodensity on CT in the liver near the falciform ligament is not visualized on this study. A CT or MRI using liver protocol may be helpful for further evaluation. 2. The pancreas is partially obscured by overlying bowel gas. 3. Cholecystectomy. Common duct is within normal limits for cholecystectomy state.
--- NOTE | 2020-10-11 13:19 | P.CONS ---
History of Present Illness - Reason for Consult Consult date: 10/11/20 Abdominal pain, nausea and vomiting Requesting physician: All Wilson - Chief Complaint Nominal pain, nausea and vomiting - History of Present Illness This is a 50-year-old white female who presented to the emergency department with complaints of intractable abdominal pain, nausea and vomiting. She has a past medical history of hyperlipidemia, hypertension, seizure disorder, chronic back pain, anxiety, and posttraumatic stress disorder. her previous surgical history includes appendectomy, cholecystectomy, hysterectomy, and umbilical hernia repair. States she was here in the emergency department on Friday and sent home and returned because of she was unable to keep anything down. States she has been vomiting for the last 46 days if she tries to drink or eat a nything. States she is lost 36 pounds in the last 1-2 months. States her bowel movements are normal. She has seen gastroenterology and states she is scheduled for an EGD later this month. She states the nausea and vomiting is associated with eating and drinking, she takes Zofran at home but states it was not helping. She was prescribed omeprazole recently but unable to keep it down. States she vomited 5 times yesterday and had some dry heaves today. The abdominal pain which is in the right lower quadrant started 4 days ago. She states she had similar episodes in the past approximately 2 years ago and had a workup including an EGD which was done 07/14/[address] Trejo showing antral gastritis and gastritis of the fundus. She states that her symptoms were related to a medication which had been discontinued. She had an abdominal x-ray on 10/09/2020 showing a nonacute abdomen. She also had a CT of the abdomen and pelvis on 10/09/2020 showing mild ectasia of the biliary tree similar to old exam. No obstructing lesion seen. Hypodensity in the anterior right lobe of the liver near the falciform ligament of uncertain significance. Does not have appearance of a typical mass. Could be hemangioma. No evidence of colitis. After reviewing the patient's chart she has been seen in the emergency department multiple times, up to 3-4 times a month for the past several months. Admission labs WBC 11.4, hemoglobin 14.4, hematocrit 40.9, platelet count 311,000, total bilirubin 0.3, alkaline phosphatase 135, AST 22, ALT 14, lipase 438. Review of Systems REVIEW OF SYSTEMS: CARDIOPULMONARY: No chest pain or shortness of breath. Gastrointestinal: Right lower quadrant pain. Nausea and vomiting. No hematemesis, coffee-ground emesis. No rectal bleeding, or melena. Normal bowel movements. GENITOURINARY: No dysuria or hematuria. MUSCULOSKELETAL: Reports normal range of motion., Chronic back pain. SKIN: No rashes. No jaundice. ENDOCRINE: No chills, fevers. No excessive weight gain or loss. No polydipsia or polyuria. PSYCHIATRIC: History of bipolar posttraumatic stress disorder. NEUROLOGY: No change in mental status. Denies dizziness, headache. ENT: Vision unremarkable. CONSTITUTIONAL: Reports recent weight loss of 36 pounds over the last 1-2 months.. No fever, chills, night sweats. Past Medical History Past Medical History: Hyperlipidemia, Hypertension, Seizure Disorder Additional Past Medical History / Comment(s): Migraines, viral meningitis x3 as a child, 1995, 2000, chronic back pain, nerve blocks 08/2016 and 12/2016. Last seizure 10/10/2020, "ABSENT SEIZURES. HX TACHYCARDIA, GBS/CIPD, PTSD. History of Any Multi-Drug Resistant Organisms: None Reported Past Surgical History: Appendectomy, Section, Cholecystectomy, Hernia Repair, Hysterectomy, Orthopedic Surgery, Tonsillectomy, Tubal Ligation Additional Past Surgical History / Comment(s): Hiatal Hernia, umbilical hernia repair, left rotator cuff repair, bilateral knee scopes, pain clinic procedures- occipital nerve block. abd exploratory sx(endometreosis), 3 abd scopes 1981, 1989, 1991), lumbar puncture. EGD. nerve biopsy, salvalry gland biospy Past Anesthesia/Blood Transfusion Reactions: No Reported Reaction Additional Past Anesthesia/Blood Transfusion Reaction / Comm: Claustrophobic Past Psychological History: Anxiety, Bipolar, Panic Disorder, PTSD Additional Psychological History / Comment(s): lives at home. Smoking Status: Former smoker Past Alcohol Use History: None Reported Additional Past Alcohol Use History / Comment(s): SMOKED SINCE 1982, WAS 1 PPD, NOW 4-5 CIGARETTES PER DAY. Past Drug Use History: None Reported - Past Family History Mother Family Medical History: Cancer, Dementia, Diabetes Mellitus, GERD/Reflux, Hyperlipidemia, Hypertension, Thyroid Disorder Additional Family Medical History / Comment(s): Quad CABG, cardiac stents, toes ampuated. Father History Unknown: Yes Family Medical History: No Reported History Medications and Allergies Home Medications Medication Instructions Recorded Confirmed Type Atorvastatin [Lipitor] 40 mg PO HS 04/02/17 10/10/20 History Lacosamide [Vimpat] 100 mg PO BID 06/04/17 10/10/20 History HYDROcodone/APAP 7.5-325MG [[place] 1 tab PO TID PRN 07/06/17 10/10/20 History 7.5-325] Galcanezumab-Gnlm [Emgality] 120 mg SQ Q30D 04/28/20 10/10/20 History amLODIPine [Norvasc] 5 mg PO DAILY 04/28/20 10/10/20 History hydrOXYzine pamoate [Vistaril] 25 mg PO TID PRN 09/06/20 10/10/20 History Allergies Allergy/AdvReac Type Severity Reaction Status Date / Time dihydroergotamine Allergy Unknown Unknown Verified 10/10/20 19:43 [From Migranal] gabapentin [From Neurontin] Allergy Itching/Swe Verified 10/10/20 19:43 lling latex Allergy Anaphylaxis Verified 10/10/20 19:43 naproxen [From Naprosyn] Allergy Anaphylaxis Verified 10/10/20 19:43 Penicillins Allergy Anaphylaxis Verified 10/10/20 19:43 prednisone Allergy Swelling Verified 10/10/20 19:43 quetiapine fumarate Allergy Itching, Verified 10/10/20 19:43 [From Seroquel] leg cramps rofecoxib [From Vioxx] Allergy Itching, Verified 10/10/20 19:43 leg cramps terfenadine [From Seldane] Allergy Rash/Hives Verified 10/10/20 19:43 tramadol Allergy Nausea & Verified 10/10/20 19:43 Vomiting/LEG CRAMPS/HEART FLUTTERS calcium carbonate [From DHEA] AdvReac Chest Pain Verified 10/10/20 19:43 calcium phosphate,dibasic AdvReac Chest Pain Verified 10/10/20 19:43 [From DHEA] clindamycin AdvReac muscle Verified 10/10/20 19:43 cramps clonidine AdvReac fast Verified 10/10/20 19:43 heartbeat, migraine dextromethorphan HBr AdvReac face/neck Verified 10/10/20 19:43 [From NyQuil] flushing diazepam [From Valium] AdvReac Nausea & Verified 10/10/20 19:43 Vomiting divalproex sodium AdvReac Nausea & Verified 10/10/20 19:43 [From Depakote] Vomiting doxylamine [From NyQuil] AdvReac face "beet Verified 10/10/20 19:43 red", elevated temp. ibuprofen [From Motrin] AdvReac abdominal Verified 10/10/20 19:43 & muscle cramps indomethacin [From Indocin] AdvReac Abdominal Verified 10/10/20 19:43 Pain,N/V ketorolac tromethamine AdvReac "built up Verified 10/10/20 19:43 [From Toradol] in system", had to be given something to reverse lorazepam [From Ativan] AdvReac Nausea & Verified 10/10/20 19:43 Vomiting memantine [From Namenda] AdvReac Itching Verified 10/10/20 19:43 metoclopramide HCl AdvReac muscle Verified 10/10/20 19:43 [From Reglan] cramps nortriptyline [From Pamelor] AdvReac Chest Pain Verified 10/10/20 19:43 prasterone (DHEA) [From DHEA] AdvReac Chest Pain Verified 10/10/20 19:43 prochlorperazine AdvReac leg Verified 10/10/20 19:43 [From Compazine] cramping propranolol AdvReac Chest Pain Verified 10/10/20 19:43 pseudoephedrine HCl AdvReac face "beet Verified 10/10/20 19:43 [From NyQuil] red", elevated temp. quetiapine [From Seroquel] AdvReac leg Verified 10/10/20 19:43 cramping sumatriptan [From Imitrex] AdvReac migrane Verified 10/10/20 19:43 sumatriptan succinate AdvReac migrane Verified 10/10/20 19:43 [From Imitrex] topiramate [From Topamax] AdvReac "built up Verified 10/10/20 19:43 in system", had to be given something to reverse trazodone AdvReac "built up Verified 10/10/20 19:43 in system", had to be given something to reverse zolpidem tartrate AdvReac "Became Verified 10/10/20 19:43 [From Ambien] violent with no memory" zonisamide [From Zonegran] AdvReac inability Verified 10/10/20 19:43 to eat artificial sweetener AdvReac SEVERE Uncoded 10/10/20 19:43 MIGRAINE HEADACHE Physical Exam Vitals: Vital Signs Temp Pulse Pulse Resp BP BP Pulse Ox 10/11/20 07:39 90 18 10/11/20 07:00 97.6 F 86 18 138/76 96 10/11/20 01:28 97.8 F 100 18 128/94 97 10/10/20 23:32 98.8 F 117 H 20 134/99 96 10/10/20 23:14 106 H 20 138/99 97 10/10/20 19:43 98.4 F 122 H 22 135/95 97 Intake and Output 10/10/20 10/11/20 10/11/20 22:59 06:59 14:59 Output Total 50 50 Balance -50 -50 Output: Emesis 50 50 Other: Voiding Method Bedside Commode Bedside Commode Incontinent Incontinent # Voids 1 2 Weight 74.843 kg 74.843 kg General appearance: The patient is alert, oriented, appears in no acute distress. HET: Head is normocephalic and atraumatic. Conjunctiva pink. Sclera anicteric. Neck: Supple without lymphadenopathy. Trachea midline. Heart: S1 S2. Regular rate and rhythm. Lungs: Clear to auscultation. Abdomen: Soft, right lower quadrant tenderness, nondistended with bowel sounds. No guarding or rigidity. Skin: No rashes. No jaundice. Extremities: Normal skin color and turgor. No pedal edema. Neurological: No focal deficits. Alert and oriented 3.. Results CBC & Chem 7: 10/10/20 20:31 10/11/20 06:00 Labs: Abnormal Lab Results - Last 24 Hours (Table) 10/10/20 10/10/20 10/11/20 Range/Units 20:31 20:31 06:00 WBC 11.4 H (3.8-10.6) k/uL Neutrophils # 8.1 H (1.3-7.7) k/uL Sodium 136 L (137-145) mmol/L Potassium 3.0 L 2.9 L (3.5-5.1) mmol/L Chloride 96 L (98-107) mmol/L BUN <2 L (7-17) mg/dL Glucose 104 H (74-99) mg/dL Alkaline Phosphatase 135 H (38-126) U/L Lipase 438 H (23-300) U/L US - abdomen: report reviewed (The liver parenchyma is heterogeneous. The previously seen hypodensity on CT in the liver near falciform ligament is not visualized on this study. A CT or MRI using liver protocol may be helpful for further evaluation. The pancreas is partially obscured by overlying bowel gas. Cholecystectomy. ) Assessment and Plan (1) Nausea and vomiting Narrative/Plan: 50-year-old female with complaints of nausea and vomiting for 46 days associated with eating or drinking presented to the emergency department for intractable nausea and vomiting and right lower quadrant pain. Patient was seen 2 days prior in the emergency department and underwent a CT of the abdomen which was unremarkable as well as a abdominal x-ray which was unremarkable. She was recently seen by gastroenterology and given Zofran and omeprazole. States he Zofran is not working and unable to take the omeprazole. She states she has had previous episode approximately 2 years ago and underwent an EGD in July [address] Trejo, which showed antral gastritis and gastritis in the fundus. States her symptoms are attributed to a medication she was previously on. It is unclear etiology of her symptoms, will proceed with EGD tomorrow. Continue antiemetics, patient has multiple ALLERGIES therefore limited use of antiemetics, will add Benadryl and continue Protonix and Zofran. Current Visit: Yes Status: Acute Code(s): R11.2 - NAUSEA WITH VOMITING, UNSPECIFIED SNOMED Code(s): 77453525 (2) Abdominal pain Current Visit: Yes Status: Acute Code(s): R10.9 - UNSPECIFIED ABDOMINAL PAIN SNOMED Code(s): 82740584 Plan: 1. Diet as tolerated, nothing by mouth after midnight 2. Continue Protonix 40 mg twice a day 3. Continue antiemetics, Benadryl added 4. Plan for EGD tomorrow, procedure was discussed with patient in detail including risks and benefits, patient is willing to proceed. Thank you for this consultation, we will continue to follow Dr. Arellano I agree with the dictator's note, documented as a scribe by Jenny Frankel.
[2020-10-11] MEDS: diphenhydrAMINE 50 MG/ML 1 ML VIAL IVP PRN (14:59)
--- NOTE | 2020-10-11 16:11 | P.HPIM ---
History of Present Illness H&P Date: 10/11/20 Chief Complaint: abdominal pain Ms. Garza is a 50-year-old female with a past medical history of hypertension, hyperlipidemia, seizure disorder, migraine, chronic low back pain, absence seizures, who has a right MediPort coming into the hospital with a chief complaint of abdominal pain. Patient states that she came to the emergency department 2 days back for the same complaints of abdominal pain, then she had a CAT scan of the abdomen and pelvis that was showing [place] history of the pyuria 3, hypodensity in the anterior right lobe of the liver near the falciform ligament of uncertain significance could be hemangioma. So the patient was eventually sent home. Patient states her abdominal pain still persisted, she points out mostly to her right lower quadrant of the abdomen states that her entire abdomen hurts but it's mostly in the right lower quadrant. Patient denies having any constipation or diarrhea. She states that her last bowel movement was yesterday, denied having any bleeding per rectum. Patient states for the past 46 days she could not eat or drink anything. She said she lost almost 36 pounds in the past 4-6 weeks. Patient states that she has a Mediport in place because of poor IV access and that she has migraine headaches and she n eeds IV medications for that. On reviewing her chart patient has multiple ED visits almost 21 visits in the past 6 months. In the ER patient had vitals checked showing temperature 98.4, heart rate 121, respiratory 22, blood pressure 135/95/30 and 97% on room air. She has labs done showing white count of 11.4, hemoglobin 14.4, platelets 311. Sodium 136 , potassium 3, chloride 96, bicarbonate 29, BUN less than 2, creatinine 0.63. Alkaline phosphatase 135. Lipase 438. Urine analysis is negative for nitrites and leukocyte esterase. Patient received pain medications in the emergency department, but her abdominal pain persisted so she was admitted for further management and flash for GI consultation. p Review of Systems REVIEW OF SYSTEMS: CONSTITUTIONAL: Positive for weight loss. Denies having any fevers or night sweats HEENT: No headache, no neck stiffness, no blurring of vision CARDIOVASCULAR: no chest pain or palpitations PULMONARY: No cough or difficulty in breathing GASTROINTESTINAL: As per HPI NEUROLOGICAL: No weakness of extremities HEMATOLOGICAL: Denies any bleeding or petechiae. GENITOURINARY: Denies any burning micturition, frequency, or urgency. MUSCULOSKELETAL/RHEUMATOLOGICAL: Denies any joint pain, swelling, or any muscle pain. ENDOCRINE: Denies polyuria polydipsia or heat or cold intolerance The rest of the 14-point review of systems is negative. Past Medical History Past Medical History: Hyperlipidemia, Hypertension, Seizure Disorder Additional Past Medical History / Comment(s): Migraines, viral meningitis x3 as a child, 1995, 2000, chronic back pain, nerve blocks 08/2016 and 12/2016. Last seizure 10/10/2020, "ABSENT SEIZURES. HX TACHYCARDIA, GBS/CIPD, PTSD. History of Any Multi-Drug Resistant Organisms: None Reported Past Surgical History: Appendectomy, Section, Cholecystectomy, Hernia Repair, Hysterectomy, Orthopedic Surgery, Tonsillectomy, Tubal Ligation Additional Past Surgical History / Comment(s): Hiatal Hernia, umbilical hernia repair, left rotator cuff repair, bilateral knee scopes, pain clinic procedures- occipital nerve block. abd exploratory sx(endometreosis), 3 abd scopes 1981, 1989, 1991), lumbar puncture. EGD. nerve biopsy, salvalry gland biospy Past Anesthesia/Blood Transfusion Reactions: No Reported Reaction Additional Past Anesthesia/Blood Transfusion Reaction / Comment(s): Claustrophobic Past Psychological History: Anxiety, Bipolar, Panic Disorder, PTSD Additional Psychological History / Comment(s): lives at home. Smoking Status: Former smoker Past Alcohol Use History: None Reported Additional Past Alcohol Use History / Comment(s): SMOKED SINCE 1982, WAS 1 PPD, NOW 4-5 CIGARETTES PER DAY. Past Drug Use History: None Reported - Past Family History Mother Family Medical History: Cancer, Dementia, Diabetes Mellitus, GERD/Reflux, Hyperlipidemia, Hypertension, Thyroid Disorder Additional Family Medical History / Comment(s): Quad CABG, cardiac stents, toes ampuated. Father History Unknown: Yes Family Medical History: No Reported History Medications and Allergies Home Medications Medication Instructions Recorded Confirmed Type Atorvastatin [Lipitor] 40 mg PO HS 04/02/17 10/10/20 History Lacosamide [Vimpat] 100 mg PO BID 06/04/17 10/10/20 History HYDROcodone/APAP 7.5-325MG [[place] 1 tab PO TID PRN 07/06/17 10/10/20 History 7.5-325] Galcanezumab-Gnlm [Emgality] 120 mg SQ Q30D 04/28/20 10/10/20 History amLODIPine [Norvasc] 5 mg PO DAILY 04/28/20 10/10/20 History hydrOXYzine pamoate [Vistaril] 25 mg PO TID PRN 09/06/20 10/10/20 History Allergies Allergy/AdvReac Type Severity Reaction Status Date / Time dihydroergotamine Allergy Unknown Unknown Verified 10/10/20 19:43 [From Migranal] gabapentin [From Neurontin] Allergy Itching/Swe Verified 10/10/20 19:43 lling latex Allergy Anaphylaxis Verified 10/10/20 19:43 naproxen [From Naprosyn] Allergy Anaphylaxis Verified 10/10/20 19:43 Penicillins Allergy Anaphylaxis Verified 10/10/20 19:43 prednisone Allergy Swelling Verified 10/10/20 19:43 quetiapine fumarate Allergy Itching, Verified 10/10/20 19:43 [From Seroquel] leg cramps rofecoxib [From Vioxx] Allergy Itching, Verified 10/10/20 19:43 leg cramps terfenadine [From Seldane] Allergy Rash/Hives Verified 10/10/20 19:43 tramadol Allergy Nausea & Verified 10/10/20 19:43 Vomiting/LEG CRAMPS/HEART FLUTTERS calcium carbonate [From DHEA] AdvReac Chest Pain Verified 10/10/20 19:43 calcium phosphate,dibasic AdvReac Chest Pain Verified 10/10/20 19:43 [From DHEA] clindamycin AdvReac muscle Verified 10/10/20 19:43 cramps clonidine AdvReac fast Verified 10/10/20 19:43 heartbeat, migraine dextromethorphan HBr AdvReac face/neck Verified 10/10/20 19:43 [From NyQuil] flushing diazepam [From Valium] AdvReac Nausea & Verified 10/10/20 19:43 Vomiting divalproex sodium AdvReac Nausea & Verified 10/10/20 19:43 [From Depakote] Vomiting doxylamine [From NyQuil] AdvReac face "beet Verified 10/10/20 19:43 red", elevated temp. ibuprofen [From Motrin] AdvReac abdominal Verified 10/10/20 19:43 & muscle cramps indomethacin [From Indocin] AdvReac Abdominal Verified 10/10/20 19:43 Pain,N/V ketorolac tromethamine AdvReac "built up Verified 10/10/20 19:43 [From Toradol] in system", had to be given something to reverse lorazepam [From Ativan] AdvReac Nausea & Verified 10/10/20 19:43 Vomiting memantine [From Namenda] AdvReac Itching Verified 10/10/20 19:43 metoclopramide HCl AdvReac muscle Verified 10/10/20 19:43 [From Reglan] cramps nortriptyline [From Pamelor] AdvReac Chest Pain Verified 10/10/20 19:43 prasterone (DHEA) [From DHEA] AdvReac Chest Pain Verified 10/10/20 19:43 prochlorperazine AdvReac leg Verified 10/10/20 19:43 [From Compazine] cramping propranolol AdvReac Chest Pain Verified 10/10/20 19:43 pseudoephedrine HCl AdvReac face "beet Verified 10/10/20 19:43 [From NyQuil] red", elevated temp. quetiapine [From Seroquel] AdvReac leg Verified 10/10/20 19:43 cramping sumatriptan [From Imitrex] AdvReac migrane Verified 10/10/20 19:43 sumatriptan succinate AdvReac migrane Verified 10/10/20 19:43 [From Imitrex] topiramate [From Topamax] AdvReac "built up Verified 10/10/20 19:43 in system", had to be given something to reverse trazodone AdvReac "built up Verified 10/10/20 19:43 in system", had to be given something to reverse zolpidem tartrate AdvReac "Became Verified 10/10/20 19:43 [From Ambien] violent with no memory" zonisamide [From Zonegran] AdvReac inability Verified 10/10/20 19:43 to eat artificial sweetener AdvReac SEVERE Uncoded 10/10/20 19:43 MIGRAINE HEADACHE Physical Exam Vitals: Vital Signs Temp Pulse Pulse Resp BP BP Pulse Ox 10/11/20 07:39 90 18 10/11/20 07:00 97.6 F 86 18 138/76 96 10/11/20 01:28 97.8 F 100 18 128/94 97 10/10/20 23:32 98.8 F 117 H 20 134/99 96 10/10/20 23:14 106 H 20 138/99 97 10/10/20 19:43 98.4 F 122 H 22 135/95 97 Intake and Output 10/10/20 10/11/20 10/11/20 22:59 06:59 14:59 Output Total 50 50 Balance -50 -50 Output: Emesis 50 50 Other: Voiding Method Bedside Commode Bedside Commode Incontinent Incontinent # Voids 1 2 Weight 74.843 kg 74.843 kg 74.843 kg PHYSICAL EXAMINATION: GENERAL: Patient is sitting up in bed with her right thigh against her right lower quadrant of the abdomen HEENT: Pupils are round and equally reacting to light. EOMI. No scleral icterus. No conjunctival pallor. CARDIOVASCULAR: S1 and S2 present. No murmurs, rubs, or gallops. CHEST: MediPort in the right side of the chest, site looks clean no signs of infection PULMONARY: Bilateral breath sounds positive. No wheeze or crackles.. ABDOMEN: Abdomen is soft. Tenderness positive in the right lower quadrant. Bowel sounds are hyperactive. No organomegaly. MUSCULOSKELETAL: No joint swelling or deformity. EXTREMITIES: No edema NEUROLOGICAL: She is alert awake oriented 3 Gross neurological examination did not reveal any focal deficits. SKIN:No rash Results CBC & Chem 7: 10/10/20 20:31 10/11/20 06:00 Labs: Abnormal Lab Results - Last 24 Hours (Table) 10/10/20 10/10/20 10/11/20 Range/Units 20:31 20:31 06:00 WBC 11.4 H (3.8-10.6) k/uL Neutrophils # 8.1 H (1.3-7.7) k/uL Sodium 136 L (137-145) mmol/L Potassium 3.0 L 2.9 L (3.5-5.1) mmol/L Chloride 96 L (98-107) mmol/L BUN <2 L (7-17) mg/dL Glucose 104 H (74-99) mg/dL Alkaline Phosphatase 135 H (38-126) U/L Lipase 438 H (23-300) U/L Thrombosis Risk Factor Assmnt - Choose All That Apply Any of the Below Risk Factors Present?: Yes Each Factor Represents 1 point: Age 41-60 years Other Risk Factors: No Other congenital or acquired thrombophilia - If yes, enter type in comment: No Thrombosis Risk Factor Assessment Total Risk Factor Score: 1 Thrombosis Risk Factor Assessment Level: Low Risk Assessment and Plan Assessment: ASSESSMENT Intractable nausea and vomiting Right lower abdominal quadrant pain Loss of appetite with significant weight loss Hypokalemia Elevated alkaline phosphatase Elevated lipase Hypertension Hyperlipidemia Seizure disorder Migraine headaches Right MediPort in place Currently and Fitzpatrick's syndrome PTSD Anxiety with depression Bipolar disorder Former smoker PLAN: Intractable nausea and vomiting keep the patient nothing by mouth Supportive management - IV fluids, antiemetics, PPI Replace electrolytes Reviewed CAT scan of the abdomen and pelvis GI on board and planning for EGD tomorrow a.m. Patient has been restarted on her home medications Further recommendations to follow depending on the progress of the patient
[2020-10-11] MEDS ORDERED: Potassium Replacement Protocol 1 EACH MISC MISCELLANE PRN ×2 (17:47→21:58)
[2020-10-11] MEDS: PANTOPRAZOLE 40 MG/10 ML VIAL IV SCH (20:14)
[2020-10-11] MEDS: POTASSIUM CHLORIDE ER 20 MEQ TAB.ER PO SCH ×2 (20:57→22:35)
[2020-10-11] MEDS ORDERED: POTASSIUM CHLORIDE 10 MEQ in WATER FOR INJECTION 1 100ML.BAG IVPB SCH (22:00)
[2020-10-11] MEDS: POTASSIUM CHLORIDE 20 MEQ in WATER FOR INJECTION 1 100ML.BAG IVPB SCH (22:37)
[2020-10-12] MEDS: POTASSIUM CHLORIDE ER 20 MEQ TAB.ER PO SCH (00:19)
[2020-10-12] MEDS: HYDROmorphone 1 MG/ML 1 ML SYRINGE IVP PRN ×4 (00:22→20:06)
[2020-10-12] MEDS: diphenhydrAMINE 50 MG/ML 1 ML VIAL IVP PRN ×2 (00:23→10:25)
[2020-10-12] MEDS: POTASSIUM CHLORIDE 20 MEQ in WATER FOR INJECTION 1 100ML.BAG IVPB SCH ×2 (00:27→02:34)
[2020-10-12] MEDS: ONDANSETRON 4 MG/2 ML VIAL IVP PRN ×2 (02:55→13:58)
[2020-10-12] MEDS: SODIUM CHLORIDE 0.9% 1,000 ML IV SCH ×2 (03:07→16:17)
[2020-10-12] MEDS: HYDROmorphone 0.5 MG/0.5 ML SYRINGE IVP PRN ×2 (08:26→10:24)
[2020-10-12] MEDS: PANTOPRAZOLE 40 MG/10 ML VIAL IV SCH ×2 (08:28→20:06)
[2020-10-12 09:24] LABS: ALT 13 U/L (4-34); AST 28 U/L (14-36); African American GFR (CKD) >90 (>60 ml/min/1.73 sqM); Albumin 3.2 g/dL (3.5-5.0); Albumin/Globulin Ratio 1.3; Alkaline Phosphatase 122 U/L (38-126); Anion Gap 6 mmol/L; Blood Urea Nitrogen <2 mg/dL (7-17); Calcium 8.8 mg/dL (8.4-10.2); Carbon Dioxide 31 mmol/L (22-30); Chloride 100 mmol/L (98-107); Globulin 2.5 g/dL; Glucose 104 mg/dL (74-99); Non-African American GFR(CKD) >90 (>60 ml/min/1.73 sqM); Potassium 3.9 mmol/L (3.5-5.1); Sodium 137 mmol/L (137-145); Total Bilirubin 0.3 mg/dL (0.2-1.3); Total Protein 5.7 g/dL (6.3-8.2)
[2020-10-12] MEDS ORDERED: MIDAZOLAM 2 MG/2 ML VIAL ONE (10:42)
[2020-10-12] MEDS ORDERED: ONDANSETRON 4 MG/2 ML VIAL ONE (10:42)
[2020-10-12] MEDS ORDERED: fentaNYL (PF) 50 MCG/ML 2 ML AMP ONE (10:42)
[2020-10-12] MEDS ORDERED: LIDOCAINE 1% INJ 10MG/ML (20 ML MDV) ONE (10:42)
[2020-10-12] MEDS ORDERED: PROPOFOL 10 MG/ML 20 ML VIAL IV ONE (10:42)
[2020-10-12] MEDS ORDERED: IV FLUID CONTINUATION 1,000 ML IV ONE (10:44)
--- NOTE | 2020-10-12 11:04 | P.PCN ---
Date of Procedure: 10/12/20 Description of Procedure: BRIEF HISTORY: 50-year-old white female who presented to the emergency department with complaints of intractable abdominal pain, nausea and vomiting. She has a past medical history of hyperlipidemia, hypertension, seizure disorder, chronic back pain, anxiety, and posttraumatic stress disorder. her previous surgical history includes appendectomy, cholecystectomy, hysterectomy, and umbilical hernia repair. States she was here in the emergency department on Friday and sent home and returned because of she was unable to keep anything down. States she has been vomiting for the last 46 days if she tries to drink or eat anything. States she is lost 36 pounds in the last 1-2 months. States her bowel movements are normal. She has seen gastroenterology and states she is scheduled for an EGD later this month. She states the nausea and vomiting is associated with eating and drinking, she takes Zofran at home but states it was not helping. She was prescribed omeprazole recently but unable to keep it down. States she vomited 5 times yesterday and had some dry heaves today. The abdominal pain which is in the right lower quadrant started 4 days ago. She states she had similar episodes in the past approximately 2 years ago and had a workup inclu ding an EGD which was done 07/14/[address] Trejo showing antral gastritis and gastritis of the fundus. She states that her symptoms were related to a medication which had been discontinued. She had an abdominal x-ray on 10/09/2020 showing a nonacute abdomen. PROCEDURE PERFORMED: Esophagogastroduodenoscopy with biopsy. PREOPERATIVE DIAGNOSIS: Intractable nausea and vomiting. ESTIMATED BLOOD LOSS: Minimal. IV sedation per anesthesia. PROCEDURE: After informed consent was obtained, the patient was brought into the endoscopy unit. IV sedation was administered by Anesthesia under continuous monitoring. Initially the Olympus GIF-190 video endoscope was inserted into the mouth. Esophagus intubated without any difficulty. It was gradually advanced into the stomach and duodenum and carefully examined. The bulb and the second part of the duodenum appeared normal, with biopsies taken to rule out celiac sprue. The scope at this time was withdrawn to the stomach, adequately insufflated with air, and upon careful examination, mucosa of the antrum, body, cardia and the fundus appeared normal, except for some mild punctate erythema in the antrum and body suggestive of mild gastritis with biopsies of the antrum and body taken to rule out Helicobacter pylori infection. The scope was then withdrawn into the esophagus. The GE junction was located at 36 cm from the incisors. The esophagus appeared normal, with lower esophageal biopsies taken. There were no erosions or ulcerations seen and the patient tolerated the procedure well. IMPRESSION: 1. Mild gastritis. 2. Biopsies of the duodenum, antrum body and lower esophagus. RECOMMENDATIONS: The findings of this examination were discussed with the patient.. Okay to resume diet, will recommend low fiber low residual diet. Okay to resume antiemetic therapy. Await pathology from biopsies. Follow up in the GI clinic as previously scheduled. Unclear etiology of symptoms, gastric motility appeared to be adequate with no gross findings to explain symptoms of nausea, may be medication related, in addition patient is on narcotic therapy which slows gastric emptying and may contribute to her nausea and should be limited if possible. No further evaluation by GI plan in the hospital at this time. Okay for discharge when otherwise medically stable for follow-up as scheduled.
[2020-10-12] MEDS: LACOSAMIDE 50 MG TABLET PO SCH ×2 (13:27→20:12)
[2020-10-12] MEDS: amLODIPine 5 MG TAB PO SCH (13:27)
[2020-10-12] MEDS: PRAZOSIN 1 MG CAP PO SCH (20:12)
[2020-10-12] MEDS: ATORVASTATIN 40 MG TAB PO SCH (20:12)
[2020-10-13] MEDS: ONDANSETRON 4 MG/2 ML VIAL IVP PRN ×3 (00:05→17:33)
[2020-10-13] MEDS: HYDROmorphone 0.5 MG/0.5 ML SYRINGE IVP PRN (00:05)
--- NOTE | 2020-10-13 00:45 | P.PN ---
Subjective Progress Note Date: 10/12/20 Principal diagnosis: Intractable Abdominal pain Ms. Garza is a 50-year-old female with a past medical history of hypertension, hyperlipidemia, seizure disorder, migraine, chronic low back pain, absence seizures, who has a right MediPort coming into the hospital with a chief complaint of abdominal pain. Patient states that she came to the emergency department 2 days back for the same complaints of abdominal pain, then she had a CAT scan of the abdomen and pelvis that was showing [place] history of the pyuria 3, hypodensity in the anterior right lobe of the liver near the falciform ligament of uncertain significance could be hemangioma. So the patient was eventually sent home. Patient states her abdominal pain still persisted, she points out mostly to her right lower quadrant of the abdomen states that her entire abdomen hurts but it's mostly in the right lower quadrant. Patient denies having any constipation or diarrhea. She states that her last bowel move ment was yesterday, denied having any bleeding per rectum. Patient states for the past 46 days she could not eat or drink anything. She said she lost almost 36 pounds in the past 4-6 weeks. Patient states that she has a Mediport in place because of poor IV access and that she has migraine headaches and she needs IV medications for that. On reviewing her chart patient has multiple ED visits almost 21 visits in the past 6 months. In the ER patient had vitals checked showing temperature 98.4, heart rate 121, respiratory 22, blood pressure 135/95/30 and 97% on room air. She has labs done showing white count of 11.4, hemoglobin 14.4, platelets 311. Sodium 136 , potassium 3, chloride 96, bicarbonate 29, BUN less than 2, creatinine 0.63. Alkaline phosphatase 135. Lipase 438. Urine analysis is negative for nitrites and leukocyte esterase. Patient received pain medications in the emergency department, but her abdominal pain persisted so she was admitted for further management and workup for GI consultation. On 10/12/2020 -patient is seen and examined at the bedside. She still complains of pain in the right lower quadrant. Patient denies having any diarrhea or constipation. She denies having any fevers chills or rigors. Denies having any dysuria or hematuria. No chest pain or palpitations or cough or difficulty in breathing. On reviewing the vitals temperature of 98.6, respiratory rate 18, heart rate 79, blood pressure 119/76, saturating 96% on room air. Reviewing her labs sodium 137, potassium 3.9, chloride 100, bicarb 31, BUN less than 2, creatinine 0.6. Patient's medications have been reviewed she continues on Tylenol, Norvasc, Lipitor, Benadryl, [place], Dilaudid, Vimpat, Narcan, Zofran, Protonix, potassium, prazosin, IV fluids at 75 cc Objective - Vital Signs Vital signs: Vital Signs Temp 98.0 F 10/12/20 07:00 Pulse 79 10/12/20 07:00 Resp 18 10/12/20 07:00 BP 119/76 10/12/20 07:00 Pulse Ox 96 10/12/20 07:00 Intake & Output 10/11/20 10/12/20 10/12/20 18:59 06:59 18:59 Intake Total 1200 100 Output Total 50 Balance -50 1200 100 Weight 74.843 kg Intake: IV 100 Intake, IV Titration 1200 Amount Potassium Chloride 20 meq 300 In Water For Injection 1 100ml.bag @ 50 mls/hr IVPB Q2H PAMELA Rx#: [id number] Sodium Chloride 0.9% 1, 900 000 ml @ 75 mls/hr IV . [id number] PAMELA Rx#:[id number] Output: Emesis 50 Other: Voiding Method Bedside Commode Bedside Commode Incontinent # Voids 2 1 - Exam PHYSICAL EXAMINATION: GENERAL: Patient is sitting up in bed with her right thigh against her right lower quadrant of the abdomen HEENT: Pupils are round and equally reacting to light. EOMI. No scleral icterus. No conjunctival pallor. CARDIOVASCULAR: S1 and S2 present. No murmurs, rubs, or gallops. CHEST: MediPort in the right side of the chest, site looks clean no signs of infection PULMONARY: Bilateral breath sounds positive. No wheeze or crackles.. ABDOMEN: Abdomen is soft. Tenderness positive in the right lower quadrant. Bowel sounds are hyperactive. No organomegaly. MUSCULOSKELETAL: No joint swelling or deformity. EXTREMITIES: No edema NEUROLOGICAL: She is alert awake oriented 3 Gross neurological examination did not reveal any focal deficits. SKIN:No rash - Labs CBC & Chem 7: 10/10/20 20:31 10/12/20 08:16 Labs: Abnormal Lab Results - Last 24 Hours (Table) 10/12/20 Range/Units 08:16 Carbon Dioxide 31 H (22-30) mmol/L BUN <2 L (7-17) mg/dL Glucose 104 H (74-99) mg/dL Total Protein 5.7 L (6.3-8.2) g/dL Albumin 3.2 L (3.5-5.0) g/dL Assessment and Plan Assessment: ASSESSMENT Intractable nausea and vomiting Right lower abdominal quadrant pain Loss of appetite with significant weight loss Hypokalemia Elevated alkaline phosphatase Elevated lipase Hypertension Hyperlipidemia Seizure disorder Migraine headaches Right MediPort in place Currently and Fitzpatrick's syndrome PTSD Anxiety with depression Bipolar disorder Former smoker PLAN: Intractable nausea and vomiting keep the patient nothing by mouth Supportive management - IV fluids, antiemetics, PPI Replace electrolytes Reviewed CAT scan of the abdomen and pelvis GI on board she had EGD done this morning - no significant findings as per discussion with GI Patient has been restarted on her home medications Further recommendations to follow depending on the progress of the patient
[2020-10-13] MEDS: HYDROmorphone 1 MG/ML 1 ML SYRINGE IVP PRN ×5 (04:33→20:30)
[2020-10-13] MEDS: SODIUM CHLORIDE 0.9% 1,000 ML IV SCH ×2 (04:35→19:56)
[2020-10-13] MEDS: PANTOPRAZOLE 40 MG/10 ML VIAL IV SCH ×2 (08:39→20:32)
[2020-10-13 09:10] LABS: Basophils # (A) 0.04 X 10*3/uL (0.00-0.10); Basophils % (A) 0.5 %; Eosinophils # (A) 0.06 X 10*3/uL (0.04-0.35); Eosinophils % (A) 0.8 %; HCT 36.1 % (37.2-46.3); HGB 12.4 g/dL (12.0-15.0); Lymphocytes # (A) 1.95 X 10*3/uL (0.90-5.00); Lymphocytes % (A) 26.3 %; MCH 30.7 pg (27.0-32.0); MCHC 34.3 g/dL (32.0-37.0); MCV 89.4 fL (80.0-97.0); Mean Platelet Volume 11.3 fL (9.5-12.2); Monocytes # (A) 0.56 X 10*3/uL (0.20-1.00); Monocytes % (A) 7.5 %; Neutrophils # (A) 4.79 X 10*3/uL (1.80-7.70); Neutrophils % (A) 64.6 %; Platelet Count 239 X 10*3/uL (140-440); RBC 4.04 X 10*6/uL (4.10-5.20); RDW 13.3 % (11.5-14.5); WBC 7.42 X 10*3/uL (4.50-10.00)
--- NOTE | 2020-10-13 09:12 | P.PN ---
Subjective Progress Note Date: 10/13/20 Principal diagnosis: Abdominal pain, nausea and vomiting The patient is seen and examined lying in bed with her right leg of into her chest. She states she is in constant pain and feels like her right lower abdomen is being ripped apart. She states that she still has nausea and vomiting with oral intake. Afebrile. Denies any bloody emesis. Yesterday she underwent an EGD that showed mild antral gastritis, she had normal peristalsis and motility, no evidence of gastroparesis however narcotic use may be contributing to symptoms or other medication. Objective - Vital Signs Vital signs: Vital Signs Temp 98.2 F 10/13/20 07:00 Pulse 83 10/13/20 07:00 Resp 15 10/13/20 07:00 BP 124/84 10/13/20 07:00 Pulse Ox 95 10/13/20 07:00 Intake & Output 10/12/20 10/13/20 10/13/20 18:59 06:59 18:59 Intake Total 280 Balance 280 Intake: IV 100 Oral 180 Other: Voiding Method Bedside Commode Bedside Commode # Voids 2 3 - Exam General appearance: The patient is alert, oriented, appears in no acute distress. HET: Head is normocephalic and atraumatic. Conjunctiva pink. Sclera anicteric. Neck: Supple without lymphadenopathy. Abdomen: Soft, right lower quadrant rebound tenderness, nondistended with bowel sounds. No guarding or rigidity. Extremities: Normal skin color and turgor. No pedal edema Skin: No rashes, no jaundice Neurological: No focal deficits. Alert and oriented 3. - Labs CBC & Chem 7: 10/13/20 05:32 10/13/20 05:32 Labs: Abnormal Lab Results - Last 24 Hours (Table) 10/12/20 Range/Units 08:16 Carbon Dioxide 31 H (22-30) mmol/L BUN <2 L (7-17) mg/dL Glucose 104 H (74-99) mg/dL Total Protein 5.7 L (6.3-8.2) g/dL Albumin 3.2 L (3.5-5.0) g/dL Assessment and Plan (1) Nausea and vomiting Narrative/Plan: 50-year-old female with complaints of nausea and vomiting for 46 days associated with eating or drinking presented to the emergency department for intractable nausea and vomiting and right lower quadrant pain. Patient was seen 2 days prior in the emergency department and underwent a CT of the abdomen which was unremarkable as well as a abdominal x-ray which was unremarkable. She was recently seen by gastroenterology and given Zofran and omeprazole. States he Zofran is not working and unable to take the omeprazole. She states she has had previous episode approximately 2 years ago and underwent an EGD in July [address] Trejo, which showed antral gastritis and gastritis in the fundus. States her symptoms are attributed to a medication she was previously on. It is unclear etiology of her symptoms, will proceed with EGD tomorrow. Continue antiemetics, patient has multiple ALLERGIES therefore limited use of antiemetics, will add Benadryl and continue Protonix and Zofran. She is status post EGD showing mild gastritis, normal motility and peristalsis. Current Visit: Yes Status: Acute Code(s): R11.2 - NAUSEA WITH VOMITING, UNSPECIFIED SNOMED Code(s): 09286276 (2) Abdominal pain Current Visit: Yes Status: Acute Code(s): R10.9 - UNSPECIFIED ABDOMINAL PAIN SNOMED Code(s): 55629786 Plan: 1. Diet as tolerated 2. Continue Protonix 40 mg twice a day 3. Continue antiemetics, Phenergan NM added 4. Status post EGD showing mild gastritis 5. Recommend avoiding narcotic use, consider other medications as possible contributing factor 6. No plans for any further endoscopic workup Thank you for this consultation, patient to follow-up in gastroenterology office as previously scheduled Dr. Jessica Munoz I agree with the dictator's note, documented as a scribe by Jenny Frankel.
[2020-10-13 10:01] LABS: ALT 14 U/L (8-44); AST 19 U/L (13-35); African American GFR (CKD) 124.9 (60.0-200.0); Albumin/Globulin Ratio 1.79 (1.60-3.17); Alkaline Phosphatase 105 U/L (41-126); Amylase 100 U/L (23-121); Blood Urea Nitrogen <5.0 mg/dL (9.0-27.0); Calcium 8.2 mg/dL (8.7-10.3); Chloride 100 mmol/L (96-109); Globulin 1.9 g/dL (1.6-3.3); Glucose 95 mg/dL (70-110); Lipase 137 U/L (14-63); Non-African American GFR(CKD) 107.8 (60.0-200.0); Potassium 3.4 mmol/L (3.5-5.5); Sodium 137 mmol/L (135-145); Total Bilirubin 0.3 mg/dL (0.2-1.2); Total Protein 5.3 g/dL (6.2-8.2)
[2020-10-13] MEDS: LACOSAMIDE 50 MG TABLET PO SCH ×2 (10:03→20:59)
[2020-10-13] MEDS: amLODIPine 5 MG TAB PO SCH (10:03)
[2020-10-13] MEDS ORDERED: SCOPOLAMINE 1.5MG/72HR PATCH TRANSDERM SCH (14:00)
[2020-10-13] MEDS ORDERED: METOCLOPRAMIDE 5 MG/ML 2 ML VIAL IVP PRN (15:32)
[2020-10-13] MEDS ORDERED: POTASSIUM CHLORIDE 20 MEQ in WATER FOR INJECTION 1 100ML.BAG IVPB STA (15:35)
--- NOTE | 2020-10-13 15:35 | P.PN ---
Subjective Progress Note Date: 10/13/20 Intractable Abdominal pain Ms. Garza is a 50-year-old female with a past medical history of hyperten gertrude, hyperlipidemia, seizure disorder, migraine, chronic low back pain, absence seizures, who has a right MediPort coming into the hospital with a chief complaint of abdominal pain. Patient states that she came to the emergency department 2 days back for the same complaints of abdominal pain, then she had a CAT scan of the abdomen and pelvis that was showing [place] history of the pyuria 3, hypodensity in the anterior right lobe of the liver near the falciform ligament of uncertain significance could be hemangioma. So the patient was eventually sent home. Patient states her abdominal pain still persisted, she points out mostly to her right lower quadrant of the abdomen states that her e ntire abdomen hurts but it's mostly in the right lower quadrant. Patient denies having any constipation or diarrhea. She states that her last bowel movement was yesterday, denied having any bleeding per rectum. Patient states for the past 46 days she could not eat or drink anything. She said she lost almost 36 pounds in the past 4-6 weeks. Patient states that she has a Mediport in place because of poor IV access and that she has migraine headaches and she needs IV medications for that. On reviewing her chart patient has multiple ED visits almost 21 visits in the past 6 months. In the ER patient had vitals checked showing temperature 98.4, heart rate 121, respiratory 22, blood pressure 135/95/30 and 97% on room air. She has labs done showing white count of 11.4, hemoglobin 14.4, platelets 311. Sodium 136 , potassium 3, chloride 96, bicarbonate 29, BUN less than 2, creatinine 0.63. Alkaline phosphatase 135. Lipase 438. Urine analysis is negative for nitrites and leukocyte esterase. Patient received pain medications in the emergency department, but her abdominal pain persisted so she was admitted for further management and workup for GI consultation. On 10/12/2020 -patient is seen and examined at the bedside. She still complains of pain in the right lower quadrant. Patient denies having any diarrhea or constipation. She denies having any fevers chills or rigors. Denies having any dysuria or hematuria. No chest pain or palpitations or cough or difficulty in breathing. On reviewing the vitals temperature of 98.6, respiratory rate 18, heart rate 79, blood pressure 119/76, saturating 96% on room air. Reviewing her labs sodium 137, potassium 3.9, chloride 100, bicarb 31, BUN less than 2, creatinine 0.6. 10/13/2020 Patient is seen and evaluated in follow-up continues to have severe right lower quadrant pain and states she is not having any bowel movements. Patient continues to have nausea with vomiting and states she is unable to tolerate her medications. GI also following recommending outpatient follow-up. Patient does have an extensive psych history and will consult psych. Potassium is 3.4 and will replace and repeat labs. To continue with IV hydration and antibiotics and rectal Phenergan added. Review of systems: Constitutional: No reports of fatigue, fever, or chills Cardiovascular: No reports of chest pain or palpitations Respiratory: No reports of shortness of breath or cough GI: Reports continued nausea with vomiting and states passing minimal gas with no bowel movements, also reports continued severe right lower quadrant abdominal pain : No reports of dysuria or retention Neurovascular: No reports of weakness or numbness All medications have been reviewed Patient's medications have been reviewed she continues on Tylenol, Norvasc, Lipitor, Benadryl, [place], Dilaudid, Vimpat, Narcan, Zofran, Protonix, potassium, prazosin, IV fluids at 75 cc Objective - Vital Signs Vital signs: Vital Signs Temp 98.2 F 10/13/20 07:00 Pulse 83 10/13/20 07:00 Resp 15 10/13/20 07:00 BP 124/84 10/13/20 07:00 Pulse Ox 95 10/13/20 07:00 Intake & Output 10/12/20 10/13/20 10/13/20 18:59 06:59 18:59 Intake Total 280 Balance 280 Intake: IV 100 Oral 180 Other: Voiding Method Bedside Commode Bedside Commode # Voids 2 3 - Exam GENERAL: Patient is lying in bed with her right thigh against her right lower quadrant of the abdomen HEENT: Pupils are round and equally reacting to light. EOMI. No scleral icterus. No conjunctival pallor. CARDIOVASCULAR: S1 and S2 present. No murmurs, rubs, or gallops. CHEST: MediPort in the right side of the chest, site looks clean no signs of infection PULMONARY: Bilateral breath sounds positive. No wheeze or crackles.. ABDOMEN: Abdomen is soft. Tenderness noted on palpation in the right lower quadrant. Bowel sounds are hyperactive. No organomegaly. MUSCULOSKELETAL: No joint swelling or deformity. EXTREMITIES: No edema NEUROLOGICAL: She is alert awake oriented 3 Gross neurological examination did not reveal any focal deficits. SKIN:No rash - Labs CBC & Chem 7: 10/13/20 05:32 10/13/20 05:32 Labs: Abnormal Lab Results - Last 24 Hours (Table) 10/13/20 10/13/20 Range/Units 05:32 05:32 RBC 4.04 L (4.10-5.20) X 10*6/uL Hct 36.1 L (37.2-46.3) % Potassium 3.4 L (3.5-5.5) mmol/L BUN <5.0 L (9.0-27.0) mg/dL Calcium 8.2 L (8.7-10.3) mg/dL Total Protein 5.3 L (6.2-8.2) g/dL Albumin 3.40 L (3.80-4.90) g/dL Lipase 137 H (14-63) U/L Assessment and Plan Assessment: Intractable nausea and vomiting Right lower abdominal quadrant pain Loss of appetite with significant weight loss Hypokalemia Elevated alkaline phosphatase Elevated lipase Hypertension Hyperlipidemia Seizure disorder Migraine headaches Right MediPort in place Currently and Fitzpatrick's syndrome PTSD Anxiety with depression Bipolar disorder Former smoker Full code PLAN: Patient continues to have nausea with vomiting stating she is unable to keep anything down. She denies any bowel movements and continues to have severe lower quadrant pain and has been seen and evaluated by GI and recently underwent EGD showing mild gastritis. Resumed on diet and currently on low fiber diet. To continue with anti-emetics along with IV fluids. Patient has been in and out of the ER and hospital multiple times for the same diagnoses as she does have an extensive psychiatric history and will consult psych for further evaluation. Discussed briefly with GI about possible surgery consult and per surgery there would be no surgical interventions done at this time. On previous admission to the ER 2 days prior to this admission patient had CT of the abdomen done which showed mild ectasia of the biliary tree similar to previous exams with no obstructing lesions noted and hypodensity in the anterior right lobe of liver near the falciform ligament of uncertain significance but does not appear to be masslike and could represent a hemangioma and this appears on previous exams although more obvious in the most recent CT. Will await appreciate psych recommendations. Patient will need outpatient follow-up with GI for biopsy results. Continue with anti-emetics and encouraged oral intake. Potassium is 3.4 and will replace and repeat labs.
[2020-10-13] MEDS: PROMETHAZINE SUPPOSITORY 12.5 MG SUPP RECTAL PRN (18:15)
[2020-10-13] MEDS: PRAZOSIN 1 MG CAP PO SCH (20:59)
[2020-10-13] MEDS: ATORVASTATIN 40 MG TAB PO SCH (20:59)
[2020-10-14] MEDS: HYDROmorphone 1 MG/ML 1 ML SYRINGE IVP PRN ×7 (01:17→23:11)
[2020-10-14 06:48] LABS: Basophils % (A) 1 %; Eosinophils # (A) 0.1 k/uL (0-0.7); Eosinophils % (A) 1 %; HCT 40.2 % (34.0-46.0); HGB 13.5 gm/dL (11.4-16.0); Lymphocytes # (A) 2.3 k/uL (1.0-4.8); Lymphocytes % (A) 32 %; MCH 30.5 pg (25.0-35.0); MCHC 33.6 g/dL (31.0-37.0); MCV 90.6 fL (80.0-100.0); Mean Platelet Volume 7.9; Monocytes # (A) 0.4 k/uL (0-1.0); Monocytes % (A) 6 %; Neutrophils # (A) 4.1 k/uL (1.3-7.7); Neutrophils % (A) 58 %; Platelet Count 221 k/uL (150-450); RBC 4.43 m/uL (3.80-5.40); RDW 13.7 % (11.5-15.5); WBC 7.2 k/uL (3.8-10.6)
[2020-10-14 07:08] LABS: African American GFR (CKD) >90 (>60 ml/min/1.73 sqM); Anion Gap 7 mmol/L; Blood Urea Nitrogen 4 mg/dL (7-17); Carbon Dioxide 29 mmol/L (22-30); Chloride 101 mmol/L (98-107); Glucose 102 mg/dL (74-99); Magnesium 1.8 mg/dL (1.6-2.3); Non-African American GFR(CKD) >90 (>60 ml/min/1.73 sqM); Potassium 3.7 mmol/L (3.5-5.1); Sodium 137 mmol/L (137-145)
[2020-10-14] MEDS: SODIUM CHLORIDE 0.9% 1,000 ML IV SCH ×2 (08:02→21:07)
[2020-10-14] MEDS: LACOSAMIDE 50 MG TABLET PO SCH ×2 (08:15→21:06)
[2020-10-14] MEDS: HEPARIN SODIUM,PORCINE/PF 5,000 UNIT/0.5 ML SYRINGE SQ SCH ×3 (08:15→23:07)
[2020-10-14] MEDS: PANTOPRAZOLE 40 MG/10 ML VIAL IV SCH ×2 (08:15→21:06)
[2020-10-14] MEDS: ONDANSETRON 4 MG/2 ML VIAL IVP PRN (08:16)
[2020-10-14] MEDS: amLODIPine 5 MG TAB PO SCH (08:29)
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
--- NOTE | 2020-10-14 13:16 | PN ---
PROGRESS NOTE PROGRESS NOTE: Patient is a 50-year-old pleasant white female admitted to the hospital with intractable nausea, vomiting for the last 2 or 3 months' duration. She underwent an upper endoscopy by Dr. Arellano 2 days ago, that showed some gastritis. The patient remains on Zofran and was started on scopolamine patch yesterday as well as Phenergan and this morning she is feeling much better. The nausea has resolved. However, she is still not able to eat much. She is going to try some liquid diet today. She continues to have some right lower quadrant abdominal pain. No diarrhea or constipation. PHYSICAL EXAMINATION: She appears comfortable, in no apparent distress. Vital signs: Stable. Blood pressure is 112/82, pulse rate 99 per minute and afebrile. HEENT examination unremarkable. Conjunctivae pink. Sclerae anicteric. Oral cavity no lesions. Neck: No JVD or lymph node enlargement. Chest was clear to auscultation. Heart: Regular rate and rhythm. Abdomen: Soft, there was mild tenderness in the right lower quadrant area. Extremities: No pedal edema. Skin: No rashes. Neuro: She is alert and oriented x3. No focal deficits. LABS: From today, WBC 7.2, hemoglobin 13.5, platelets 103, basic metabolic panel is within normal limits. IMPRESSION: 1. Chronic nausea, vomiting for the last 2 months' duration. She underwent an upper endoscopy by Dr. Islas 2 days ago that showed mild antral gastritis. The patient currently on various antiemetics including Phenergan and scopolamine patch and she seems to be slightly improving today. 2. Chronic right lower quadrant abdominal pain. 3. History of hypertension and hypercholesteremia. RECOMMENDATION: 1. Continue with current antiemetics. 2. We will start her back on a clear liquid diet and advance diet slowly as tolerated. 3. If she continues to have persistent symptoms, we will consider obtaining a small- bowel series to rule out any Crohn disease. The plan was discussed with the patient, she is agreeable to it. Thank you for this consultation. MMODL / ROSALVAN: [id number] /
[2020-10-14] MEDS: PROMETHAZINE SUPPOSITORY 12.5 MG SUPP RECTAL PRN (14:19)
[2020-10-14] MEDS ORDERED: POTASSIUM CHLORIDE ER 20 MEQ TAB.ER PO STA (15:43)
--- NOTE | 2020-10-14 15:48 | P.PN ---
Subjective Intractable Abdominal pain Ms. Garza is a 50-year-old female with a past medical history of hypertension, hyperlipidemia, seizure disorder, migraine, chronic low back pain, absence seizures, who has a right MediPort coming into the hospital with a chief complaint of abdominal pain. Patient states that she came to the emergency department 2 days back for the same complaints of abdominal pain, then she had a CAT scan of the abdomen and pelvis that was showing [place] history of the pyuria 3, hypodensity in the anterior right lobe of the liver near the falciform ligament of uncertain significance could be hemangioma. So the patient was eventually sent home. Patient states her abdominal pain still persisted, she points out mostly to her right lower quadrant of the abdomen states that her entire abdomen hurts but it's mostly in the right lower quadrant. Patient denies having any constipation or diarrhea. She states that her last bowel movement was yesterday, denied having any bleeding per rectum. Patient states for the past 46 days she could not eat or drink anything. She said she lost almost 36 pounds in the past 4-6 weeks. Patient states that she has a Mediport in place because of poor IV access and that she has migraine headaches and she needs IV medications for that. On reviewing her chart patient has multiple ED visits almost 21 visits in the past 6 months. In the ER patient had vitals checked showing temperature 98.4, heart rate 121, respiratory 22, blood pressure 135/95/30 and 97% on room air. She has labs done showing white count of 11.4, hemoglobin 14.4, platelets 311. Sodium 136 , potassium 3, chloride 96, bicarbonate 29, BUN less than 2, creatinine 0.63. Alkaline phosphatase 135. Lipase 438. Urine analysis is negative for nitrites and leukocyte esterase. Patient received pain medications in the emergency department, but her abdominal pain persisted so she was admitted for further management and workup for GI consultation. On 10/12/2020 -patient is seen and examined at the bedside. She still complains of pain in the right lower quadrant. Patient denies having any diarrhea or constipation. She denies having any fevers chills or rigors. Denies having any dysuria or hematuria. No chest pain or palpitations or cough or difficulty in breathing. On reviewing the vitals temperature of 98.6, respiratory rate 18, heart rate 79, blood pressure 119/76, saturating 96% on room air. Reviewing her labs sodium 137, potassium 3.9, chloride 100, bicarb 31, BUN less than 2, creatinine 0.6. 10/13/2020 Patient is seen and evaluated in follow-up continues to have severe right lower quadrant pain and states she is not having any bowel movements. Patient continues to have nausea with vomiting and states she is unable to tolerate her medications. GI also following recommending outpatient follow-up. Patient does have an extensive psych history and will consult psych. Potassium is 3.4 and will replace and repeat labs. To continue with IV hydration and antibiotics and rectal Phenergan added. 10/14/2020 Patient underwent extensive evaluation including upper GI endoscopy which only showed mild gastroenteritis, this upper endoscopy was 2 days ago. Patient had a CT of the abdomen on fifth of this month which did not show any significant abnormality that can explain her symptoms patient continues to be on multiple antiemetics in spite of which patient can use to have some nausea vomiting. Patient's abdomen is soft still has a right lower quadrant abdominal pain. Gastroenterology evaluated the patient and the there considering small bowel series to rule out any Crohn's disease if patient can use to have persistent symptoms. There is a significant concern all her symptoms are psychosomatic because of which psychiatry valid the patient is recommending psychiatry admi ssion once cleared medically Review of systems: Constitutional: No reports of fatigue, fever, or chills Cardiovascular: No reports of chest pain or palpitations Respiratory: No reports of shortness of breath or cough GI: Reports continued nausea with vomiting and states passing minimal gas with no bowel movements, also reports continued severe right lower quadrant abdominal pain : No reports of dysuria or retention Neurovascular: No reports of weakness or numbness All medications have been reviewed GENERAL: Patient is lying in bed with her right thigh against her right lower quadrant of the abdomen HEENT: Pupils are round and equally reacting to light. EOMI. No scleral icterus. No conjunctival pallor. CARDIOVASCULAR: S1 and S2 present. No murmurs, rubs, or gallops. CHEST: MediPort in the right side of the chest, site looks clean no signs of infection PULMONARY: Bilateral breath sounds positive. No wheeze or crackles.. ABDOMEN: Abdomen is soft. Tenderness noted on palpation in the right lower quadrant. Bowel sounds are hyperactive. No organomegaly. MUSCULOSKELETAL: No joint swelling or deformity. EXTREMITIES: No edema NEUROLOGICAL: She is alert awake oriented 3 Gross neurological examination did not reveal any focal deficits. SKIN:No rash Assessment: Intractable nausea and vomiting is not clear extensive workup as mentioned above continue with antiemetics. Possibility of psychosomatic competent. Continue with the low fiber diet Right lower abdominal quadrant pain: As mentioned in assessment #1 Loss of appetite with significant weight loss Hypokalemia Elevated alkaline phosphatase Elevated lipase Hypertension Hyperlipidemia Seizure disorder Migraine headaches Right MediPort in place PTSD Anxiety with depression Bipolar disorder Former smoker Full code Objective - Vital Signs Vital signs: Vital Signs Temp 97.9 F 10/14/20 14:09 Pulse 74 10/14/20 14:09 Resp 16 10/14/20 14:09 BP 106/75 10/14/20 14:09 Pulse Ox 97 10/14/20 14:09 Intake & Output 10/13/20 10/14/20 10/14/20 18:59 06:59 18:59 Weight 74.843 kg Other: Voiding Method Bedside Commode # Voids 1 0 1 - Labs CBC & Chem 7: 10/14/20 05:32 10/14/20 05:32 Labs: Abnormal Lab Results - Last 24 Hours (Table) 10/14/20 Range/Units 05:32 BUN 4 L (7-17) mg/dL Glucose 102 H (74-99) mg/dL
[2020-10-14] MEDS: diphenhydrAMINE 50 MG/ML 1 ML VIAL IVP PRN (16:19)
[2020-10-14] MEDS: ATORVASTATIN 40 MG TAB PO SCH (21:06)
[2020-10-14] MEDS: PRAZOSIN 1 MG CAP PO SCH (21:06)
[2020-10-15] MEDS: HYDROmorphone 1 MG/ML 1 ML SYRINGE IVP PRN ×2 (04:32→08:30)
[2020-10-15] MEDS: LACOSAMIDE 50 MG TABLET PO SCH ×2 (08:28→19:40)
[2020-10-15] MEDS: PANTOPRAZOLE 40 MG/10 ML VIAL IV SCH ×2 (08:28→19:41)
[2020-10-15] MEDS: HEPARIN SODIUM,PORCINE/PF 5,000 UNIT/0.5 ML SYRINGE SQ SCH ×3 (08:28→23:13)
[2020-10-15] MEDS: SODIUM CHLORIDE 0.9% 1,000 ML IV SCH ×2 (08:31→20:49)
[2020-10-15] MEDS: amLODIPine 5 MG TAB PO SCH (08:51)
[2020-10-15] MEDS: IOPAMIDOL CONTRAST (ORAL USE) VIAL PO PRN ×3 (08:51→10:09)
--- NOTE | 2020-10-15 09:16 | PN ---
PROGRESS NOTE DATE OF SERVICE: October 15, 2020. REQUESTING PHYSICIAN: Dr. Reece. The patient is a 50-year-old white female admitted to the hospital with severe right lower quadrant abdominal pain and intractable nausea, vomiting for the last 2 months duration. She had an upper endoscopy done by Dr. Arellano 5 days ago that showed some gastritis but no evidence of gastric outlet obstruction. The patient has been on various antiemetics including Phenergan, scopolamine patch, Zofran, Reglan and Protonix and still continues to remain symptomatic. She continues to complain of severe right lower quadrant abdominal pain and feels some of the symptoms are related to the constant pain. She is on a clear liquid diet but not able to tolerate it. On review of her records, she had multiple ER visits and hospitalizations over the last several months. The last CT of the abdomen and pelvis was done on October 09, 2020 that showed no significant pathology. One prior to that was on September 06, 2020. Once again did not show any significant pathology. She was seen by Dr. Coats from psychiatric yesterday for history of depression. PHYSICAL EXAMINATION: She appears comfortable. No apparent distress. Vital signs are stable. Blood pressure is 112/86, pulse rate 86 and afebrile. HEENT examination unremarkable. Conjunctivae pink. Sclerae anicteric. Oral cavity no lesions. Neck no JVD or lymph node enlargement. Chest was clear to auscultation. Heart: Regular rate and rhythm. Abdomen: Soft. Bowel sounds are positive. There was tenderness in the right lower quadrant area. There was no rebound or rigidity. Bowel sounds are positive. Extremities: No pedal edema. Skin no rashes. Neuro: She is alert and oriented x3. No focal deficits. LABS: From yesterday WBC 7.2, hemoglobin normal. Platelets are normal. BUN and creatinine normal. Basic metabolic panel is normal. IMPRESSION: 1. Severe right lower quadrant abdominal pain for the last several months. Last CT scan 6 days ago was unremarkable. 2. Intractable vomiting despite being on several antiemetics on Protonix 40 mg daily. Upper endoscopy done [address] Arellano was unremarkable. 3. History of bipolar disorder and panic attacks seen by psychiatric yesterday. 4. Electrolyte abnormalities being replaced. RECOMMENDATIONS: 1. Because of the ongoing persistent right lower quadrant abdominal pain, we will proceed with a repeat CT of the abdomen and pelvis today. 2. Continue with current dose of antiemetics and Protonix 40 mg daily. 3. If the CT scan is negative, we will start advancing diet as tolerated. 4. We will follow with you closely. Thank you for this consultation. DENIS / KASH: [id number] /
[2020-10-15] MEDS: ONDANSETRON 4 MG/2 ML VIAL IVP PRN (10:21)
--- NOTE | 2020-10-15 11:10 | CT ---
EXAMINATION TYPE: CT abdomen pelvis w con DATE OF EXAM: 10/15/2020 COMPARISON: CT 10/09/2020, CT 01/05/2017 HISTORY: RLQ pain, nausea and vomiting CT DLP: 750.9 mGycm Automated exposure control for dose reduction was used. TECHNIQUE: Helical acquisition of images from the lung bases through the pelvis have been completed. CONTRAST: Performed with Oral Contrast and with IV Contrast, patient injected with 100 mL of Isovue 300. FINDINGS: Lucency within the soft tissues of the anterior abdomen within the subcutaneous fat likely due to injections, correlate for appropriate history. Postop changes are noted near the gastroesophag eal junction. LUNG BASES: No significant abnormality is appreciated. AORTA: No significant abnormality is appreciated. LIVER/GB: No significant change is appreciated, hypodensity is again noted within the left lobe of th e liver which is thought likely to be chronic. Patient is post cholecystectomy, there are dilated int rahepatic biliary ducts. PANCREAS: No significant abnormality is seen. SPLEEN: No significant abnormality is seen. ADRENALS: No significant abnormality is seen. KIDNEYS: No significant abnormality is seen. REPRODUCTIVE ORGANS: Not seen BOWEL: Some questionable colonic wall thickening noted along the descending colon, sigmoid colon.. T here is no evident appendicitis FREE AIR: No Free Air visible. ASCITES: None visible. PELVIC ADENOPATHY: None visualized. RETROPERITONEAL ADENOPATHY: No Retroperitoneal Adenopathy visible. URINARY BLADDER: No significant abnormality is seen. OSSEOUS STRUCTURES: Degenerative disc changes are present in the visualized spine. There is some ass ociated facet arthropathy. IMPRESSION: INDETERMINATE HYPODENSITY ATTENUATION WITHIN THE RIGHT LOBE OF THE LIVER IS MORE CONSPICUOUS, liver M RI may be of benefit. Postop change. Correlate to exclude colitis.
[2020-10-15] MEDS: HYDROcodone/APAP 5-325MG 1 EACH TAB PO PRN ×4 (12:23→23:13)
--- NOTE | 2020-10-15 12:42 | P.PN ---
Subjective Intractable Abdominal pain Ms. Garza is a 50-year-old female with a past medical history of hypertension, hyperlipidemia, seizure disorder, migraine, chronic low back pain, absence seizures, who has a right MediPort coming into the hospital with a chief complaint of abdominal pain. Patient states that she came to the emergency department 2 days back for the same complaints of abdominal pain, then she had a CAT scan of the abdomen and pelvis that was showing [place] history of the pyuria 3, hypodensity in the anterior right lobe of the liver near the falciform ligament of uncertain significance could be hemangioma. So the patient was eventually sent home. Patient states her abdominal pain still persisted, she points out mostly to her right lower quadrant of the abdomen states that her entire abdomen hurts but it's mostly in the right lower quadrant. Patient denies having any constipation or diarrhea. She states that her last bowel movement was yesterday, denied having any bleeding per rectum. Patient states for the past 46 days she could not eat or drink anything. She said she lost almost 36 pounds in the past 4-6 weeks. Patient states that she has a Mediport in place because of poor IV access and that she has migraine headaches and she needs IV medications for that. On reviewing her chart patient has multiple ED visits almost 21 visits in the past 6 months. In the ER patient had vitals checked showing temperature 98.4, heart rate 121, respiratory 22, blood pressure 135/95/30 and 97% on room air. She has labs done showing white count of 11.4, hemoglobin 14.4, platelets 311. Sodium 136 , potassium 3, chloride 96, bicarbonate 29, BUN less than 2, creatinine 0.63. Alkaline phosphatase 135. Lipase 438. Urine analysis is negative for nitrites and leukocyte esterase. Patient received pain medications in the emergency department, but her abdominal pain persisted so she was admitted for further management and workup for GI consultation. On 10/12/2020 -patient is seen and examined at the bedside. She still complains of pain in the right lower quadrant. Patient denies having any diarrhea or constipation. She denies having any fevers chills or rigors. Denies having any dysuria or hematuria. No chest pain or palpitations or cough or difficulty in breathing. On reviewing the vitals temperature of 98.6, respiratory rate 18, heart rate 79, blood pressure 119/76, saturating 96% on room air. Reviewing her labs sodium 137, potassium 3.9, chloride 100, bicarb 31, BUN less than 2, creatinine 0.6. 10/13/2020 Patient is seen and evaluated in follow-up continues to have severe right lower quadrant pain and states she is not having any bowel movements. Patient continues to have nausea with vomiting and states she is unable to tolerate her medications. GI also following recommending outpatient follow-up. Patient does have an extensive psych history and will consult psych. Potassium is 3.4 and will replace and repeat labs. To continue with IV hydration and antibiotics and rectal Phenergan added. 10/14/2020 Patient underwent extensive evaluation including upper GI endoscopy which only showed mild gastroenteritis, this upper endoscopy was 2 days ago. Patient had a CT of the abdomen on fifth of this month which did not show any significant abnormality that can explain her symptoms patient continues to be on multiple antiemetics in spite of which patient can use to have some nausea vomiting. Patient's abdomen is soft still has a right lower quadrant abdominal pain. Gastroenterology evaluated the patient and the there considering small bowel series to rule out any Crohn's disease if patient can use to have persistent symptoms. There is a significant concern all her symptoms are psychosomatic because of which psychiatry valid the patient is recommending psychiatry admi ssion once cleared medically 10/15/2020 Patient is still complaining of abdominal pain but right lower quadrant abdomen is soft and abdomen is soft and benign. Patient had a repeat CT of the ab domen which did not show any significant abnormality that When her pain it showed increased hypodensity in the left lobe of the liver and MRI is being recommended by radiology, I'll leave the decision of MRI to gastroenterology. Patient nausea improves patient is able to tolerate liquid diet which will advance most probably patient will be discharged tomorrow. Patient may have psychosomatic competent of abdominal pain. As a do not have any objective evidence of any significant pathology that can cause pain, I'll discontinue Dilaudid same thing was informed to the patient. Review of systems: Constitutional: No reports of fatigue, fever, or chills Cardiovascular: No reports of chest pain or palpitations Respiratory: No reports of shortness of breath or cough GI: Reports continued nausea with vomiting and states passing minimal gas with no bowel movements, also reports continued severe right lower quadrant abdominal pain : No reports of dysuria or retention Neurovascular: No reports of weakness or numbness All medications have been reviewed GENERAL: Patient is lying in bed with her right thigh against her right lower quadrant of the abdomen HEENT: Pupils are round and equally reacting to light. EOMI. No scleral icterus. No conjunctival pallor. CARDIOVASCULAR: S1 and S2 present. No murmurs, rubs, or gallops. CHEST: MediPort in the right side of the chest, site looks clean no signs of infection PULMONARY: Bilateral breath sounds positive. No wheeze or crackles.. ABDOMEN: Abdomen is soft. Tenderness noted on palpation in the right lower quadrant. Bowel sounds are hyperactive. No organomegaly. MUSCULOSKELETAL: No joint swelling or deformity. EXTREMITIES: No edema NEUROLOGICAL: She is alert awake oriented 3 Gross neurological examination did not reveal any focal deficits. SKIN:No rash Assessment: Intractable nausea and vomiting, etiology is not clear extensive workup as mentioned above continue with antiemetics. A she is tolerating liquid diet possibility of discharge tomorrow Possibility of psychosomatic competent. Right lower abdominal quadrant pain: Extensive workup did not reveal any significant abnormality patient abdominal pain is probably psychosomatic Loss of appetite with out significant weight loss Hypokalemia: Potassium was replaced Hypertension Hyperlipidemia Seizure disorder Migraine headaches Right MediPort in place PTSD Anxiety with depression Bipolar disorder Former smoker Full code Objective - Vital Signs Vital signs: Vital Signs Temp 98.0 F 10/15/20 07:00 Pulse 86 10/15/20 07:00 Resp 16 10/15/20 07:00 BP 117/81 10/15/20 07:00 Pulse Ox 96 10/15/20 07:00 Intake & Output 10/14/20 10/15/20 10/15/20 18:59 06:59 18:59 Other: Voiding Method Bedside Commode Bedside Commode # Voids 1 2 1 - Labs CBC & Chem 7: 10/14/20 05:32 10/14/20 05:32
[2020-10-15] MEDS: PROMETHAZINE SUPPOSITORY 12.5 MG SUPP RECTAL PRN (17:53)
[2020-10-15] MEDS: ATORVASTATIN 40 MG TAB PO SCH (19:40)
[2020-10-15] MEDS: PRAZOSIN 1 MG CAP PO SCH (20:50)
[2020-10-16] MEDS: HYDROcodone/APAP 5-325MG 1 EACH TAB PO PRN ×3 (04:41→13:16)
[2020-10-16] MEDS: HEPARIN SODIUM,PORCINE/PF 5,000 UNIT/0.5 ML SYRINGE SQ SCH (07:29)
[2020-10-16] MEDS: amLODIPine 5 MG TAB PO SCH ×2 (07:29→07:30)
[2020-10-16] MEDS: PANTOPRAZOLE 40 MG/10 ML VIAL IV SCH (07:29)
[2020-10-16] MEDS: LACOSAMIDE 50 MG TABLET PO SCH (07:29)
[2020-10-16 07:38] VITALS: BP 112/75; PULSE 83; RESP 17; TEMP 98.3
--- NOTE | 2020-10-16 09:34 | P.PN ---
Subjective Progress Note Date: 10/16/20 Principal diagnosis: Abdominal pain, nausea and vomiting The patient is seen and examined lying in bed, she was sleeping when entering the room. She states she still having right lower quadrant abdominal pain, which she states is constant. She has not had a bowel movement since she's been in the hospital. States she still having nausea and vomiting and was unable to keep her oral meds down last night. States she is able to tolerate liquids when she drinks it very slowly. CT of the abdomen showed no acute findings consistent with the patient's pain. There was some mild wall thickening within the descending colon and sigmoid colon, consider colitis. Intermediate Hyp odensity density attenuation in the right lobe of the liver, is more conspicuous than previous, consider MRI for further evaluation. Objective - Vital Signs Vital signs: Vital Signs Temp 98.3 F 10/16/20 07:00 Pulse 83 10/16/20 08:00 Resp 17 10/16/20 08:00 BP 112/75 10/16/20 07:00 Pulse Ox 97 10/16/20 07:00 Intake & Output 10/15/20 10/16/20 10/16/20 18:59 06:59 18:59 Intake Total 118 Balance 118 Intake: Oral 118 Other: Voiding Method Bedside Commode Bedside Commode Bedside Commode # Voids 1 3 - Exam General appearance: The patient is alert, oriented, appears in no acute distress. HET: Head is normocephalic and atraumatic. Conjunctiva pink. Sclera anicteric. Neck: Supple without lymphadenopathy. Abdomen: Soft, right lower quadrant rebound tenderness, nondistended with bowel sounds. No guarding or rigidity. Extremities: Normal skin color and turgor. No pedal edema Skin: No rashes, no jaundice Neurological: No focal deficits. Alert and oriented 3. - Labs CBC & Chem 7: 10/14/20 05:32 10/14/20 05:32 Assessment and Plan (1) Nausea and vomiting Narrative/Plan: 50-year-old female with complaints of nausea and vomiting for 46 days associated with eating or drinking presented to the emergency department for intractable nausea and vomiting and right lower quadrant pain. Patient was seen 2 days prior in the emergency department and underwent a CT of the abdomen which was unremarkable as well as a abdominal x-ray which was unremarkable. She was recently seen by gastroenterology and given Zofran and omeprazole. States he Zofran is not working and unable to take the omeprazole. She states she has had previous episode approximately 2 years ago and underwent an EGD in July [address] Trejo, which showed antral gastritis and gastritis in the fundus. States her symptoms are attributed to a medication she was previously on. It is unclear etiology of her symptoms, will proceed with EGD tomorrow. Continue antiemetics, patient has multiple ALLERGIES therefore limited use of antiemetics, will add Benadryl and continue Protonix and Zofran. She is status post EGD showing mild gastritis, normal motility and peristalsis. Status: Acute Code(s): R11.2 - NAUSEA WITH VOMITING, UNSPECIFIED SNOMED Code(s): 55107726 (2) Abdominal pain Narrative/Plan: CT of abdomen and pelvis ordered and reviewed, symptoms out of proportion for findings on CT scan. Status: Acute Code(s): R10.9 - UNSPECIFIED ABDOMINAL PAIN SNOMED Code(s): 51653527 Plan: 1. Diet as tolerated 2. Continue Protonix 40 mg twice a day 3. Continue antiemetics, Phenergan [place] added 4. Status post EGD showing mild gastritis 5. CT of abdomen ordered and reviewed 6. Recommend avoiding narcotic use, consider other medications as possible contributing factor 7. No plans for any further endoscopic workup Thank you for this consultation, patient may be discharged home and follow up with Dr. Arellano as scheduled Dr. Jessica Munoz I agree with the dictator's note, documented as a scribe by Jenny Frankel.
[2020-10-16] MEDS: SODIUM CHLORIDE 0.9% 1,000 ML IV SCH (12:53)
--- NOTE | 2020-10-17 09:41 | P.DS ---
Providers Date of admission: 10/13/20 16:28 Expected date of discharge: 10/16/20 Attending physician: All Wilson Consults: 10/10/20 22:49 Consult Physician Routine Consulting Provider: Sterling Arellano Consult Reason/Comments: Intractable abdominal pain, n/v Do you want consulting provider notified?: Yes 10/13/20 12:05 Consult Physician Urgent Consulting Provider: Mannie Iniguez Consult Reason/Comments: extensive psych history/ multiple visits to hospital Do you want consulting provider notified?: Yes Primary care physician: José Reece Hospital Course: Final diagnosis Intractable nausea and vomiting, etiology is not clear, possibility of psychosomatic component Right lower abdominal quadrant pain: Extensive workup did not reveal any significant abnormality patient abdominal pain is probably psychosomatic Loss of appetite with out significant weight loss Hypokalemia Hypertension Hyperlipidemia Seizure disorder Migraine headaches Right MediPort in place PTSD Anxiety with depression Bipolar disorder Former smoker Full code Discharge disposition Patient is being discharged in a stable condition with guarded prognosis to home. Patient will follow-up with Dr. Reece in the outpatient setting upon discharge. Patient is to follow-up with GI . Total time taken is greater than 35 minutes. Hospital course Intractable Abdominal pain Ms. Garza is a 50-year-old female with a past medical history of hypertension, hyperlipidemia, seizure disorder, migraine, chronic low back pain, absence seizures, who has a right MediPort coming into the hospital with a chief complaint of abdominal pain. Patient states that she came to the emergency department 2 days back for the same complaints of abdominal pain, then she had a CAT scan of the abdomen and pelvis that was showing [place] history of the pyuria 3, hypodensity in the anterior right lobe of the liver near the falciform ligament of uncertain significance could be hemangioma. So the patient was eventually sent home. Patient states her abdominal pain still persisted, she points out mostly to her right lower quadrant of the abdomen states that her entire abdomen hurts but it's mostly in the right lower quadrant. Patient denies having any constipation or diarrhea. She states that her last bowel movement was yesterday, denied having any bleeding per rectum. Patient states for the past 46 days she could not eat or drink anything. She said she lost almost 36 pounds in the past 4-6 weeks. Patient states that she has a Mediport in place because of poor IV access and that she has migraine headaches and she needs IV medications for that. On reviewing her chart patient has multiple ED visits almost 21 visits in the past 6 months. In the ER patient had vitals checked showing temperature 98.4, heart rate 121, respiratory 22, blood pressure 135/95/30 and 97% on room air. She has labs done showing white count of 11.4, hemoglobin 14.4, platelets 311. Sodium 136 , potassium 3, chloride 96, bicarbonate 29, BUN less than 2, creatinine 0.63. Alkaline phosphatase 135. Lipase 438. Urine analysis is negative for nitrites and leukocyte esterase. Patient received pain medications in the emergency department, but her abdominal pain persisted so she was admitted for further management and workup for GI consultation. On 10/12/2020 -patient is seen and examined at the bedside. She still complains of pain in the right lower quadrant. Patient denies having any diarrhea or constipation. She denies having any fevers chills or rigors. Denies having any dysuria or hematuria. No chest pain or palpitations or cough or difficulty in breathing. On reviewing the vitals temperature of 98.6, respiratory rate 18, heart rate 79, blood pressure 119/76, saturating 96% on room air. Reviewing her labs sodium 137, potassium 3.9, chloride 100, bicarb 31, BUN less than 2, creatinine 0.6. 10/13/2020 Patient is seen and evaluated in follow-up continues to have severe right lower quadrant pain and states she is not having any bowel movements. Patient continues to have nausea with vomiting and states she is unable to tolerate her medications. GI also following recommending outpatient follow-up. Patient does have an extensive psych history and will consult psych. Potassium is 3.4 and will replace and repeat labs. To continue with IV hydration and antibiotics and rectal Phenergan added. 10/14/2020 Patient underwent extensive evaluation including upper GI endoscopy which only showed mild gastroenteritis, this upper endoscopy was 2 days ago. Patient had a CT of the abdomen on fifth of this month which did not show any significant abnormality that can explain her symptoms patient continues to be on multiple antiemetics in spite of which patient can use to have some nausea vomiting. Patient's abdomen is soft still has a right lower quadrant abdominal pain. Gastroenterology evaluated the patient and the there considering small bowel series to rule out any Crohn's disease if patient can use to have persistent symptoms. There is a significant concern all her symptoms are psychosomatic because of which psychiatry valid the patient is recommending psychiatry a dmission once cleared medically 10/15/2020 Patient is still complaining of abdominal pain but right lower quadrant abdomen is soft and abdomen is soft and benign. Patient had a repeat CT of the abdomen which did not show any significant abnormality that When her pain it showed increased hypodensity in the left lobe of the liver and MRI is being recommended by radiology, I'll leave the decision of MRI to gastroenterology. Patient nausea improves patient is able to tolerate liquid diet which will advance most probably patient will be discharged tomorrow. Patient may have psychosomatic competent of abdominal pain. As a do not have any objective evidence of any significant pathology that can cause pain, I'll discontinue Dilaudid same thing was informed to the patient. 10/16/2020 Patient is seen in follow-up today with no acute issues noted. Patient continues to have abdominal discomfort in the right lower quadrant and was seen and evaluated by GI recommending outpatient follow-up and also patient will need to follow-up closely with primary care provider. Patient was also seen and evaluated by psychiatry and will need outpatient follow-up in the community. Patient is tolerating diet and does have continued nausea intermittently. Patient provided with scopolamine patches along with Phenergan rectal suppositories and will continue. Currently no reports of chest pain, shortness of breath, or palpitations. Patient is afebrile. No reports of nausea or vomiting and patient is tolerating diet. Patient will discharged home today. On exam vital signs are stable. Cardio S1, S2 are muffled. Respiratory system shows diminished breath sounds at the bases with no wheezing or rhonchi noted. Abdomen is soft and obese, and nontender. Nervous system shows no focal de ficits. Please refer to medication reconciliation sheet for a list of medications. Patient Condition at Discharge: Stable Plan - Discharge Summary Discharge Rx Participant: No New Discharge Prescriptions: New Promethazine Suppository [Phenergan] 12.5 mg RECTAL TID PRN #30 supp PRN Reason: Nausea And Vomiting Scopolamine 1.5MG/72Hr Patch [TransDerm Scop] 1 patch TRANSDERM Q72H #5 patch Acetaminophen Tab [Tylenol] 650 mg PO Q6HR PRN tab PRN Reason: Mild Pain Or Fever > 100.5 Continue Atorvastatin [Lipitor] 40 mg PO HS Lacosamide [Vimpat] 100 mg PO BID HYDROcodone/APAP 7.5-325MG [[place] 7.5-325] 1 tab PO TID PRN PRN Reason: Pain amLODIPine [Norvasc] 5 mg PO DAILY Galcanezumab-Gnlm [Emgality Pen] 120 mg SQ Q30D hydrOXYzine pamoate [Vistaril] 25 mg PO TID PRN PRN Reason: Anxiety Discharge Medication List Atorvastatin [Lipitor] 40 mg PO HS 04/02/17 [History] Lacosamide [Vimpat] 100 mg PO BID 06/04/17 [History] HYDROcodone/APAP 7.5-325MG [[place] 7.5-325] 1 tab PO TID PRN 07/06/17 [History] Galcanezumab-Gnlm [Emgality Pen] 120 mg SQ Q30D 04/28/20 [History] amLODIPine [Norvasc] 5 mg PO DAILY 04/28/20 [History] hydrOXYzine pamoate [Vistaril] 25 mg PO TID PRN 09/06/20 [History] Acetaminophen Tab [Tylenol] 650 mg PO Q6HR PRN tab 10/16/20 [Rx] Promethazine Suppository [Phenergan] 12.5 mg RECTAL TID PRN #30 supp 10/16/20 [Rx] Scopolamine 1.5MG/72Hr Patch [TransDerm Scop] 1 patch TRANSDERM Q72H #5 patch 10/16/20 [Rx] Follow up Appointment(s)/Referral(s): José Reece MD [Primary Care Provider] - 1-2 days Sterling Arellano MD [STAFF PHYSICIAN] - 10/27/20 1:30 pm Activity/Diet/Wound Care/Special Instructions: Awaiting for GI to round prior to discharge Activity Limited until follow-up Follow-up with GI outpatient Follow-up with primary care provider upon discharge Continue with medications as prescribed Continue with clear liquid and slowly advance as tolerated to low fiber Discharge Disposition: HOME SELF-CARE
== END 2020-10-16 13:43 | disposition home or self-care (01) | DRG 882 ==
LOC: EC 19:31 → 6NMEDSUR 22:44 → OBSVTOIN 10-13 16:28
PROVIDERS: ADMIT Hospitalist; ATTEND Hospitalist
DX: F45.8 Other somatoform disorders (principal); K29.70 Gastritis, unspecified, without bleeding; F54 Psychological and behavioral factors associated with disorders or diseases classified elsewhere; E78.00 Pure hypercholesterolemia, unspecified; E78.5 Hyperlipidemia, unspecified; E87.6 Hypokalemia; Z87.891 Personal history of nicotine dependence; F31.9 Bipolar disorder, unspecified; F40.240 Claustrophobia; F41.0 Panic disorder [episodic paroxysmal anxiety]; F41.8 Other specified anxiety disorders; F43.10 Post-traumatic stress disorder, unspecified; G40.A09 Absence epileptic syndrome, not intractable, without status epilepticus; G43.909 Migraine, unspecified, not intractable, without status migrainosus; G89.29 Other chronic pain; I10 Essential (primary) hypertension; K22.70 Barrett's esophagus without dysplasia; R63.4 Abnormal weight loss; Z68.29 Body mass index [BMI] 29.0-29.9, adult; Z79.899 Other long term (current) drug therapy; Z82.49 Family history of ischemic heart disease and other diseases of the circulatory system; Z83.3 Family history of diabetes mellitus; Z90.710 Acquired absence of both cervix and uterus; Z98.890 Other specified postprocedural states; Z90.49 Acquired absence of other specified parts of digestive tract; Z88.0 Allergy status to penicillin; Z88.8 Allergy status to other drugs, medicaments and biological substances; Z88.6 Allergy status to analgesic agent; Z88.1 Allergy status to other antibiotic agents; Z91.040 Latex allergy status; Z98.51 Tubal ligation status; Z90.89 Acquired absence of other organs; Z62.810 Personal history of physical and sexual abuse in childhood
CPT/HCPCS: 36415; 43239; 74177; 76700; 80048; 80053; 81003; 82150; 83690; 83735; 84132; 85025; 88305; 88312; 96361; 96374; 96375; 96376; 99285

== ENCOUNTER 2020-10-22 11:55 | Emergency (ER) | payer OTHER ==
[2020-10-22 11:58] VITALS: RESP 18; TEMP 98.1
[2020-10-22] MEDS ORDERED: ONDANSETRON 4 MG/2 ML VIAL IM STA (12:21)
[2020-10-22] MEDS ORDERED: MORPHINE SULFATE 4 MG/ML SYRINGE IM STA (12:21)
--- NOTE | 2020-10-22 12:26 | ED ---
General Adult HPI - General Chief complaint: Headache Stated complaint: migraine Time Seen by Provider: 10/22/20 12:00 Source: patient, family, RN notes reviewed Mode of arrival: wheelchair Limitations: no limitations - History of Present Illness Initial comments: Patient is a pleasant 50-year-old female presenting to the emergency department with complaints of headache. Onset of symptoms was yesterday. Patient does have associated nausea and photophobia. Headache is similar to patient's chronic headaches. Headache is diffuse. No weakness or fevers. Patient has Guillain-Cárdenas with chronic leg weakness and refuses examination of leg strength. - Related Data Home Medications Medication Instructions Recorded Confirmed Atorvastatin [Lipitor] 40 mg PO HS 04/02/17 10/10/20 Lacosamide [Vimpat] 100 mg PO BID 06/04/17 10/10/20 HYDROcodone/APAP 7.5-325MG [[place] 1 tab PO TID PRN 07/06/17 10/10/20 7.5-325] Galcanezumab-Gnlm [Emgality Pen] 120 mg SQ Q30D 04/28/20 10/10/20 amLODIPine [Norvasc] 5 mg PO DAILY 04/28/20 10/10/20 hydrOXYzine pamoate [Vistaril] 25 mg PO TID PRN 09/06/20 10/10/20 Previous Rx's Medication Instructions Recorded Acetaminophen Tab [Tylenol] 650 mg PO Q6HR PRN tab 10/16/20 Promethazine Suppository 12.5 mg RECTAL TID PRN #30 supp 10/16/20 [Phenergan] Scopolamine 1.5MG/72Hr Patch 1 patch TRANSDERM Q72H #5 patch 10/16/20 [TransDerm Scop] Allergies Allergy/AdvReac Type Severity Reaction Status Date / Time dihydroergotamine Allergy Unknown Unknown Verified 10/22/20 11:58 [From Migranal] gabapentin [From Neurontin] Allergy Itching/Swe Verified 10/22/20 11:58 lling latex Allergy Anaphylaxis Verified 10/22/20 11:58 naproxen [From Naprosyn] Allergy Anaphylaxis Verified 10/22/20 11:58 Penicillins Allergy Anaphylaxis Verified 10/22/20 11:58 prednisone Allergy Swelling Verified 10/22/20 11:58 quetiapine fumarate Allergy Itching, Verified 10/22/20 11:58 [From Seroquel] leg cramps rofecoxib [From Vioxx] Allergy Itching, Verified 10/22/20 11:58 leg cramps terfenadine [From Seldane] Allergy Rash/Hives Verified 10/22/20 11:58 tramadol Allergy Nausea & Verified 10/22/20 11:58 Vomiting/LEG CRAMPS/HEART FLUTTERS calcium carbonate [From DHEA] AdvReac Chest Pain Verified 10/22/20 11:58 calcium phosphate,dibasic AdvReac Chest Pain Verified 10/22/20 11:58 [From DHEA] clindamycin AdvReac muscle Verified 10/22/20 11:58 cramps clonidine AdvReac fast Verified 10/22/20 11:58 heartbeat, migraine dextromethorphan HBr AdvReac face/neck Verified 10/22/20 11:58 [From NyQuil] flushing diazepam [From Valium] AdvReac Nausea & Verified 10/22/20 11:58 Vomiting divalproex sodium AdvReac Nausea & Verified 10/22/20 11:58 [From Depakote] Vomiting doxylamine [From NyQuil] AdvReac face "beet Verified 10/22/20 11:58 red", elevated temp. ibuprofen [From Motrin] AdvReac abdominal Verified 10/22/20 11:58 & muscle cramps indomethacin [From Indocin] AdvReac Abdominal Verified 10/22/20 11:58 Pain,N/V ketorolac tromethamine AdvReac "built up Verified 10/22/20 11:58 [From Toradol] in system", had to be given something to reverse lorazepam [From Ativan] AdvReac Nausea & Verified 10/22/20 11:58 Vomiting memantine [From Namenda] AdvReac Itching Verified 10/22/20 11:58 metoclopramide HCl AdvReac muscle Verified 10/22/20 11:58 [From Reglan] cramps nortriptyline [From Pamelor] AdvReac Chest Pain Verified 10/22/20 11:58 prasterone (DHEA) [From DHEA] AdvReac Chest Pain Verified 10/22/20 11:58 prochlorperazine AdvReac leg Verified 10/22/20 11:58 [From Compazine] cramping propranolol AdvReac Chest Pain Verified 10/22/20 11:58 pseudoephedrine HCl AdvReac face "beet Verified 10/22/20 11:58 [From NyQuil] red", elevated temp. quetiapine [From Seroquel] AdvReac leg Verified 10/22/20 11:58 cramping sumatriptan [From Imitrex] AdvReac migrane Verified 10/22/20 11:58 sumatriptan succinate AdvReac migrane Verified 10/22/20 11:58 [From Imitrex] topiramate [From Topamax] AdvReac "built up Verified 10/22/20 11:58 in system", had to be given something to reverse trazodone AdvReac "built up Verified 10/22/20 11:58 in system", had to be given something to reverse zolpidem tartrate AdvReac "Became Verified 10/22/20 11:58 [From Ambien] violent with no memory" zonisamide [From Zonegran] AdvReac inability Verified 10/22/20 11:58 to eat artificial sweetener AdvReac SEVERE Uncoded 10/22/20 11:58 MIGRAINE HEADACHE Review of Systems ROS Statement: Those systems with pertinent positive or pertinent negative responses have been documented in the HPI. ROS Other: All systems not noted in ROS Statement are negative. Constitutional: Denies: fever Eyes: Reports: as per HPI. Denies: eye pain ENT: Denies: ear pain Respiratory: Denies: cough Cardiovascular: Denies: chest pain Endocrine: Denies: fatigue Gastrointestinal: Denies: abdominal pain Genitourinary: Denies: dysuria Musculoskeletal: Denies: back pain Skin: Denies: rash Neurological: Reports: headache Past Medical History Past Medical History: Hyperlipidemia, Hypertension, Seizure Disorder Additional Past Medical History / Comment(s): Migraines, viral meningitis x3 as a child, 1995, 2000, chronic back pain, nerve blocks 08/2016 and 12/2016. Last seizure 10/10/2020, "ABSENT SEIZURES. HX TACHYCARDIA, GBS/CIPD, PTSD. History of Any Multi-Drug Resistant Organisms: None Reported Past Surgical History: Appendectomy, Section, Cholecystectomy, Hernia Repair, Hysterectomy, Orthopedic Surgery, Tonsillectomy, Tubal Ligation Additional Past Surgical History / Comment(s): Hiatal Hernia, umbilical hernia repair, left rotator cuff repair, bilateral knee scopes, pain clinic procedures- occipital nerve block. abd exploratory sx(endometreosis), 3 abd scopes 1981, 1989, 1991), lumbar puncture. EGD. nerve biopsy, salvalry gland biospy Past Anesthesia/Blood Transfusion Reactions: No Reported Reaction Additional Past Anesthesia/Blood Transfusion Reaction / Comment(s): Claustrophobic Past Psychological History: Anxiety, Bipolar, Panic Disorder, PTSD Smoking Status: Current every day smoker Past Alcohol Use History: None Reported Past Drug Use History: None Reported - Past Family History Mother Family Medical History: Cancer, Dementia, Diabetes Mellitus, GERD/Reflux, Hyperlipidemia, Hypertension, Thyroid Disorder Additional Family Medical History / Comment(s): Quad CABG, cardiac stents, toes ampuated. Father History Unknown: Yes Family Medical History: No Reported History General Exam Limitations: no limitations General appearance: alert, in no apparent distress Head exam: Present: atraumatic Eye exam: Present: normal appearance, PERRL, EOMI Neck exam: Present: normal inspection Respiratory exam: Present: normal lung sounds bilaterally Cardiovascular Exam: Present: regular rate, normal rhythm GI/Abdominal exam: Present: soft. Absent: tenderness Extremities exam: Present: normal inspection Neurological exam: Present: alert, oriented X3, CN II-XII intact. Absent: motor sensory deficit (Patient refuses exam of lower legs) Expanded Neurological exam: Present: protecting the airway Speech: Present: fluid speech Cranial nerves: EOM's Intact: Normal Motor strength exam: RUE: 5, LUE: 5 Eye Response: (4) open spontaneously Motor Response: (6) obeys commands Verbal Response: (5) oriented Psychiatric exam: Present: normal affect, normal mood Skin exam: Present: normal color Course Vital Signs 10/22/20 11:56 Temperature 98.1 F Pulse Rate 117 H Respiratory 18 Rate Blood Pressure 142/89 O2 Sat by Pulse 99 Oximetry Disposition Clinical Impression: Chronic headache Disposition: HOME SELF-CARE Condition: Stable Instructions (If sedation given, give patient instructions): Acute Headache (ED) Additional Instructions: Please follow-up with primary care physician as well as your headache DrJesu this week. Return for fevers, new weakness, worsening or changing symptoms or other concerns. Is patient prescribed a controlled substance at d/c from ED?: No Referrals: José Reece MD [Primary Care Provider] - 1-2 days Time of Disposition: 12:25
[2020-10-22] MEDS ORDERED: diphenhydrAMINE 50 MG/ML 1 ML VIAL IM STA (13:03)
[2020-10-22] MEDS ORDERED: ENALAPRILAT 1.25 MG/ML 1 ML VIAL IVP STA (14:08)
[2020-10-22] MEDS ORDERED: SODIUM CHLORIDE 0.9% 1,000 ML IV STA (14:08)
[2020-10-22] MEDS ORDERED: MORPHINE SULFATE 4 MG/ML SYRINGE IVP STA (14:09)
[2020-10-22 15:47] LABS: Basophils # (A) 0.1 k/uL (0-0.2); Basophils % (A) 1 %; Eosinophils # (A) 0.2 k/uL (0-0.7); Eosinophils % (A) 2 %; HCT 38.9 % (34.0-46.0); HGB 12.7 gm/dL (11.4-16.0); Lymphocytes # (A) 2.1 k/uL (1.0-4.8); Lymphocytes % (A) 32 %; MCH 30.4 pg (25.0-35.0); MCHC 32.5 g/dL (31.0-37.0); MCV 93.4 fL (80.0-100.0); Mean Platelet Volume 8.8; Monocytes # (A) 0.3 k/uL (0-1.0); Monocytes % (A) 4 %; Neutrophils # (A) 3.9 k/uL (1.3-7.7); Neutrophils % (A) 58 %; Platelet Count 307 k/uL (150-450); RBC 4.16 m/uL (3.80-5.40); RDW 14.4 % (11.5-15.5); WBC 6.7 k/uL (3.8-10.6)
[2020-10-22 16:02] LABS: ALT 23 U/L (4-34); AST 29 U/L (14-36); African American GFR (CKD) >90 (>60 ml/min/1.73 sqM); Albumin 3.3 g/dL (3.5-5.0); Alkaline Phosphatase 118 U/L (38-126); Anion Gap 6 mmol/L; Blood Urea Nitrogen 5 mg/dL (7-17); Calcium 8.9 mg/dL (8.4-10.2); Carbon Dioxide 27 mmol/L (22-30); Chloride 107 mmol/L (98-107); Glucose 101 mg/dL (74-99); Non-African American GFR(CKD) >90 (>60 ml/min/1.73 sqM); Potassium 4.3 mmol/L (3.5-5.1); Sodium 140 mmol/L (137-145); Total Bilirubin 0.3 mg/dL (0.2-1.3); Total Protein 5.8 g/dL (6.3-8.2)
[2020-10-22] MEDS ORDERED: HYDROmorphone 0.5 MG/0.5 ML SYRINGE IVP STA (16:26)
[2020-10-22] MEDS ORDERED: diphenhydrAMINE 50 MG/ML 1 ML VIAL IVP STA (16:26)
[2020-10-22 16:42] VITALS: BP 148/107; PULSE 95
== END 2020-10-22 17:23 | disposition home or self-care (01) ==
LOC: EC 11:55
DX: G43.909 Migraine, unspecified, not intractable, without status migrainosus (principal); E78.5 Hyperlipidemia, unspecified; I10 Essential (primary) hypertension; F17.200 Nicotine dependence, unspecified, uncomplicated
CPT/HCPCS: 36415; 80053; 85025; 99284; 96374; 96375 ×3; 96372 ×2; J2270; J1200; J2405; J1170

== ENCOUNTER 2020-11-01 17:02 | Emergency (ER) | payer OTHER ==
[2020-11-01] MEDS ORDERED: SODIUM CHLORIDE 0.9% 1,000 ML IV STA (17:21)
[2020-11-01] MEDS ORDERED: HYDROmorphone 1 MG/ML 1 ML SYRINGE IVP STA ×2 (17:21→19:15)
[2020-11-01] MEDS ORDERED: diphenhydrAMINE 50 MG/ML 1 ML VIAL IVP STA (17:21)
[2020-11-01] MEDS ORDERED: ONDANSETRON 4 MG/2 ML VIAL IVP STA (17:21)
--- NOTE | 2020-11-01 17:30 | ED ---
Headache HPI - General Chief Complaint: Headache Stated Complaint: migraine Source: patient, family, RN notes reviewed, old records reviewed Mode of arrival: wheelchair Limitations: no limitations - History of Present Illness Initial Comments: 50-year-old white female, anal 4, presents to the emergency room with migraine headache. Patient states that she was taking emgality for migraines however her insurance company denied it this month. She tried to contact her primary care doctor and was unable to get the problem resolved. She states that the headache started last night and is significantly worse today. 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 Patient states she is greater than 10 headaches a month until she was put on this medicine and now she is under that however the insurance company would not approve her dose this month. Patient has a history of hypertension, seizures, meningitis, getting very. She has chronic bilateral lower extremity weakness due to [place]. She uses a wheelchair at home. Denies any falls. This is not the worse headache of her life. Family at bedside with patient's service dog. Complaint: "migraine" -: days(s) (1) Onset Description: gradual Location: occipital Severity scale (1-10): 8 Quality: aching, constant, similar to previous headaches Consistency: constant Improves With: nothing Worsens With: light, noise Context: other (Patient was to for her migraine medication and the insurance company denied it) Associated Symptoms: photophobia, sensitivity to sound Treatments Prior to Arrival: antiemetic - Related Data Home Medications Medication Instructions Recorded Confirmed Atorvastatin [Lipitor] 40 mg PO HS 04/02/17 10/10/20 Lacosamide [Vimpat] 100 mg PO BID 06/04/17 10/10/20 HYDROcodone/APAP 7.5-325MG [[place] 1 tab PO TID PRN 07/06/17 10/10/20 7.5-325] Galcanezumab-Gnlm [Emgality Pen] 120 mg SQ Q30D 04/28/20 10/10/20 amLODIPine [Norvasc] 5 mg PO DAILY 04/28/20 10/10/20 hydrOXYzine pamoate [Vistaril] 25 mg PO TID PRN 09/06/20 10/10/20 Previous Rx's Medication Instructions Recorded Acetaminophen Tab [Tylenol] 650 mg PO Q6HR PRN tab 10/16/20 Promethazine Suppository 12.5 mg RECTAL TID PRN #30 supp 10/16/20 [Phenergan] Scopolamine 1.5MG/72Hr Patch 1 patch TRANSDERM Q72H #5 patch 10/16/20 [TransDerm Scop] Allergies Allergy/AdvReac Type Severity Reaction Status Date / Time dihydroergotamine Allergy Unknown Unknown Verified 11/01/20 17:08 [From Migranal] gabapentin [From Neurontin] Allergy Itching/Swe Verified 11/01/20 17:08 lling latex Allergy Anaphylaxis Verified 11/01/20 17:08 naproxen [From Naprosyn] Allergy Anaphylaxis Verified 11/01/20 17:08 Penicillins Allergy Anaphylaxis Verified 11/01/20 17:08 prednisone Allergy Swelling Verified 11/01/20 17:08 quetiapine fumarate Allergy Itching, Verified 11/01/20 17:08 [From Seroquel] leg cramps rofecoxib [From Vioxx] Allergy Itching, Verified 11/01/20 17:08 leg cramps terfenadine [From Seldane] Allergy Rash/Hives Verified 11/01/20 17:08 tramadol Allergy Nausea & Verified 11/01/20 17:08 Vomiting/LEG CRAMPS/HEART FLUTTERS calcium carbonate [From DHEA] AdvReac Chest Pain Verified 11/01/20 17:08 calcium phosphate,dibasic AdvReac Chest Pain Verified 11/01/20 17:08 [From DHEA] clindamycin AdvReac muscle Verified 11/01/20 17:08 cramps clonidine AdvReac fast Verified 11/01/20 17:08 heartbeat, migraine dextromethorphan HBr AdvReac face/neck Verified 11/01/20 17:08 [From NyQuil] flushing diazepam [From Valium] AdvReac Nausea & Verified 11/01/20 17:08 Vomiting divalproex sodium AdvReac Nausea & Verified 11/01/20 17:08 [From Depakote] Vomiting doxylamine [From NyQuil] AdvReac face "beet Verified 11/01/20 17:08 red", elevated temp. ibuprofen [From Motrin] AdvReac abdominal Verified 11/01/20 17:08 & muscle cramps indomethacin [From Indocin] AdvReac Abdominal Verified 11/01/20 17:08 Pain,N/V ketorolac tromethamine AdvReac "built up Verified 11/01/20 17:08 [From Toradol] in system", had to be given something to reverse lorazepam [From Ativan] AdvReac Nausea & Verified 11/01/20 17:08 Vomiting memantine [From Namenda] AdvReac Itching Verified 11/01/20 17:08 metoclopramide HCl AdvReac muscle Verified 11/01/20 17:08 [From Reglan] cramps nortriptyline [From Pamelor] AdvReac Chest Pain Verified 11/01/20 17:08 prasterone (DHEA) [From DHEA] AdvReac Chest Pain Verified 11/01/20 17:08 prochlorperazine AdvReac leg Verified 11/01/20 17:08 [From Compazine] cramping propranolol AdvReac Chest Pain Verified 11/01/20 17:08 pseudoephedrine HCl AdvReac face "beet Verified 11/01/20 17:08 [From NyQuil] red", elevated temp. quetiapine [From Seroquel] AdvReac leg Verified 11/01/20 17:08 cramping sumatriptan [From Imitrex] AdvReac migrane Verified 11/01/20 17:08 sumatriptan succinate AdvReac migrane Verified 11/01/20 17:08 [From Imitrex] topiramate [From Topamax] AdvReac "built up Verified 11/01/20 17:08 in system", had to be given something to reverse trazodone AdvReac "built up Verified 11/01/20 17:08 in system", had to be given something to reverse zolpidem tartrate AdvReac "Became Verified 11/01/20 17:08 [From Ambien] violent with no memory" zonisamide [From Zonegran] AdvReac inability Verified 11/01/20 17:08 to eat artificial sweetener AdvReac SEVERE Uncoded 10/22/20 11:58 MIGRAINE HEADACHE Review of Systems ROS Statement: Those systems with pertinent positive or pertinent negative responses have been documented in the HPI. ROS Other: All systems not noted in ROS Statement are negative. Past Medical History Past Medical History: Hyperlipidemia, Hypertension, Seizure Disorder Additional Past Medical History / Comment(s): Migraines, viral meningitis x3 as a child, 1995, 2000, chronic back pain, nerve blocks 08/2016 and 12/2016. Last seizure 10/10/2020, "ABSENT SEIZURES. HX TACHYCARDIA, GBS/CIPD, PTSD. History of Any Multi-Drug Resistant Organisms: None Reported Past Surgical History: Appendectomy, Section, Cholecystectomy, Hernia Repair, Hysterectomy, Orthopedic Surgery, Tonsillectomy, Tubal Ligation Additional Past Surgical History / Comment(s): Hiatal Hernia, umbilical hernia repair, left rotator cuff repair, bilateral knee scopes, pain clinic procedures- occipital nerve block. abd exploratory sx(endometreosis), 3 abd scopes 1981, 1989, 1991), lumbar puncture. EGD. nerve biopsy, salvalry gland biospy Past Anesthesia/Blood Transfusion Reactions: No Reported Reaction Additional Past Anesthesia/Blood Transfusion Reaction / Comment(s): Claustroph obic Past Psychological History: Anxiety, Bipolar, Panic Disorder, PTSD Smoking Status: Current every day smoker Past Alcohol Use History: None Reported Past Drug Use History: None Reported - Past Family History Mother Family Medical History: Cancer, Dementia, Diabetes Mellitus, GERD/Reflux, Hyperlipidemia, Hypertension, Thyroid Disorder Additional Family Medical History / Comment(s): Quad CABG, cardiac stents, toes ampuated. Father History Unknown: Yes Family Medical History: No Reported History General Exam Limitations: no limitations Head exam: Present: atraumatic, normocephalic, normal inspection Eye exam: Present: normal appearance, PERRL, EOMI. Absent: scleral icterus, conjunctival injection, periorbital swelling ENT exam: Present: normal exam, normal oropharynx, mucous membranes moist Neck exam: Present: normal inspection, full ROM. Absent: tenderness, meningismus, lymphadenopathy, thyromegaly Respiratory exam: Present: normal lung sounds bilaterally. Absent: respiratory distress, wheezes, rales, rhonchi, stridor, chest wall tenderness, accessory muscle use, decreased breath sounds, prolonged expiratory Cardiovascular Exam: Present: tachycardia GI/Abdominal exam: Present: soft, normal bowel sounds. Absent: distended, tenderness, guarding, rebound, rigid Extremities exam: Present: normal inspection, full ROM, normal capillary refill. Absent: tenderness, pedal edema, joint swelling, calf tenderness Back exam: Present: normal inspection, full ROM. Absent: tenderness, CVA tenderness (R), CVA tenderness (L), muscle spasm, paraspinal tenderness, vertebral tenderness Neurological exam: Present: alert, oriented X3, CN II-XII intact Expanded Speech: Present: fluid speech Cranial nerves: EOM's Intact: Normal, Gag Reflex: Normal, Tongue Deviation: Normal Cerebellar function: Finger to Nose: Normal, Heel to [place]: Abnormal Right, Abnormal Left (Weakness related to guillian barre for 1 year) Motor strength exam: RUE: 5, LUE: 5, RLE: 3, LLE: 3 Eye Response: (4) open spontaneously Motor Response: (6) obeys commands Verbal Response: (5) oriented Mauri Total: 15 Psychiatric exam: Present: normal affect, normal mood Skin exam: Present: warm, dry, intact, normal color. Absent: rash, cyanosis, diaphoretic, erythema, petechiae, pallor, mottled Course Vital Signs 11/01/20 17:04 Temperature 98.1 F Pulse Rate 115 H Respiratory 18 Rate Blood Pressure 143/94 O2 Sat by Pulse 100 Oximetry Medical Decision Making - Medical Decision Making Patient states that this headache is typical of her normal migraine headaches. She denies a thunderclap or sudden onset. She states that the pain started occipitally and feels like a hot poker behind her right eye which is typical of her normal migraine headaches. She states that she is due to have her get her emgality shot but was declined by her insurance company. She got relief in the emergency room with IV fluids and Benadryl and Zofran and pain medication. She has no new focal neurological deficits. She does have weakness bilateral lower extremities due to Ivana Cárdenas diagnosis 1 year ago. She denies any fevers, recent surgeries, or trauma. She is feeling better and agreeable to being discharged and following up with her own primary care doctor. Case discussed with Dr. Duffy Disposition Clinical Impression: Headache Disposition: HOME SELF-CARE Condition: Fair Instructions (If sedation given, give patient instructions): Acute Headache (ED) Additional Instructions: Take medication as prescribed and contact her primary care doctor for continuation of care migraine medication. Return to the emergency room with any worsening symptoms, nausea vomiting or fevers. Is patient prescribed a controlled substance at d/c from ED?: No Referrals: José Reece MD [Primary Care Provider] - 1-2 days Time of Disposition: 18:37
[2020-11-01 19:34] VITALS: BP 178/100; PULSE 99; RESP 20; TEMP 98
== END 2020-11-01 19:32 | disposition home or self-care (01) ==
LOC: EC 17:02
DX: G43.909 Migraine, unspecified, not intractable, without status migrainosus (principal); I10 Essential (primary) hypertension; E78.5 Hyperlipidemia, unspecified; G40.909 Epilepsy, unspecified, not intractable, without status epilepticus; F31.9 Bipolar disorder, unspecified; F41.9 Anxiety disorder, unspecified; F17.200 Nicotine dependence, unspecified, uncomplicated
CPT/HCPCS: 99283; 96374; 96375 ×3; 96376; 96361; J1200; J2405; J1642; J1170

== ENCOUNTER 2020-11-03 17:06 | Emergency (ER) | payer OTHER ==
[2020-11-03 17:14] VITALS: TEMP 98.5
[2020-11-03] MEDS ORDERED: SODIUM CHLORIDE 0.9% 1,000 ML IV STA (17:19)
[2020-11-03] MEDS ORDERED: HYDROmorphone 1 MG/ML 1 ML SYRINGE IVP STA ×2 (17:19→18:12)
[2020-11-03] MEDS ORDERED: ONDANSETRON 4 MG/2 ML VIAL IVP STA (17:19)
--- NOTE | 2020-11-03 18:00 | ED ---
Headache HPI - General Chief Complaint: Headache Stated Complaint: Migraine Time Seen by Provider: 11/03/20 17:16 Source: patient, RN notes reviewed Mode of arrival: ambulatory Limitations: no limitations - History of Present Illness Initial Comments: Patient is a 50-year-old male that presents to emergency room complaining of migraine for the past 5 days. She notes that she has been follow-up with her neurologist but her insurance did not cover her migraine medication. She notes that she did without it. She notes that she is having one of her typical migraines with photophobia and nausea. She denied any new symptoms or complaints to go along with this. She was otherwise a well-appearing 50-year-old female. She denied any chest pain shortness of breath vomiting diarrhea constipation fever fatigue chills. - Related Data Home Medications Medication Instructions Recorded Confirmed Atorvastatin [Lipitor] 40 mg PO HS 04/02/17 10/10/20 Lacosamide [Vimpat] 100 mg PO BID 06/04/17 10/10/20 HYDROcodone/APAP 7.5-325MG [[place] 1 tab PO TID PRN 07/06/17 10/10/20 7.5-325] Galcanezumab-Gnlm [Emgality Pen] 120 mg SQ Q30D 04/28/20 10/10/20 amLODIPine [Norvasc] 5 mg PO DAILY 04/28/20 10/10/20 hydrOXYzine pamoate [Vistaril] 25 mg PO TID PRN 09/06/20 10/10/20 Previous Rx's Medication Instructions Recorded Acetaminophen Tab [Tylenol] 650 mg PO Q6HR PRN tab 10/16/20 Promethazine Suppository 12.5 mg RECTAL TID PRN #30 supp 10/16/20 [Phenergan] Scopolamine 1.5MG/72Hr Patch 1 patch TRANSDERM Q72H #5 patch 10/16/20 [TransDerm Scop] Allergies Allergy/AdvReac Type Severity Reaction Status Date / Time dihydroergotamine Allergy Unknown Unknown Verified 11/03/20 17:14 [From Migranal] gabapentin [From Neurontin] Allergy Itching/Swe Verified 11/03/20 17:14 lling latex Allergy Anaphylaxis Verified 11/03/20 17:14 naproxen [From Naprosyn] Allergy Anaphylaxis Verified 11/03/20 17:14 Penicillins Allergy Anaphylaxis Verified 11/03/20 17:14 prednisone Allergy Swelling Verified 11/03/20 17:14 quetiapine fumarate Allergy Itching, Verified 11/03/20 17:14 [From Seroquel] leg cramps rofecoxib [From Vioxx] Allergy Itching, Verified 11/03/20 17:14 leg cramps terfenadine [From Seldane] Allergy Rash/Hives Verified 11/03/20 17:14 tramadol Allergy Nausea & Verified 11/03/20 17:14 Vomiting/LEG CRAMPS/HEART FLUTTERS calcium carbonate [From DHEA] AdvReac Chest Pain Verified 11/03/20 17:14 calcium phosphate,dibasic AdvReac Chest Pain Verified 11/03/20 17:14 [From DHEA] clindamycin AdvReac muscle Verified 11/03/20 17:14 cramps clonidine AdvReac fast Verified 11/03/20 17:14 heartbeat, migraine dextromethorphan HBr AdvReac face/neck Verified 11/03/20 17:14 [From NyQuil] flushing diazepam [From Valium] AdvReac Nausea & Verified 11/03/20 17:14 Vomiting divalproex sodium AdvReac Nausea & Verified 11/03/20 17:14 [From Depakote] Vomiting doxylamine [From NyQuil] AdvReac face "beet Verified 11/03/20 17:14 red", elevated temp. ibuprofen [From Motrin] AdvReac abdominal Verified 11/03/20 17:14 & muscle cramps indomethacin [From Indocin] AdvReac Abdominal Verified 11/03/20 17:14 Pain,N/V ketorolac tromethamine AdvReac "built up Verified 11/03/20 17:14 [From Toradol] in system", had to be given something to reverse lorazepam [From Ativan] AdvReac Nausea & Verified 11/03/20 17:14 Vomiting memantine [From Namenda] AdvReac Itching Verified 11/03/20 17:14 metoclopramide HCl AdvReac muscle Verified 11/03/20 17:14 [From Reglan] cramps nortriptyline [From Pamelor] AdvReac Chest Pain Verified 11/03/20 17:14 prasterone (DHEA) [From DHEA] AdvReac Chest Pain Verified 11/03/20 17:14 prochlorperazine AdvReac leg Verified 11/03/20 17:14 [From Compazine] cramping propranolol AdvReac Chest Pain Verified 11/03/20 17:14 pseudoephedrine HCl AdvReac face "beet Verified 11/03/20 17:14 [From NyQuil] red", elevated temp. quetiapine [From Seroquel] AdvReac leg Verified 11/03/20 17:14 cramping sumatriptan [From Imitrex] AdvReac migrane Verified 11/03/20 17:14 sumatriptan succinate AdvReac migrane Verified 11/03/20 17:14 [From Imitrex] topiramate [From Topamax] AdvReac "built up Verified 11/03/20 17:14 in system", had to be given something to reverse trazodone AdvReac "built up Verified 11/03/20 17:14 in system", had to be given something to reverse zolpidem tartrate AdvReac "Became Verified 11/03/20 17:14 [From Ambien] violent with no memory" zonisamide [From Zonegran] AdvReac inability Verified 11/03/20 17:14 to eat artificial sweetener AdvReac SEVERE Uncoded 11/03/20 17:14 MIGRAINE HEADACHE Review of Systems ROS Statement: Those systems with pertinent positive or pertinent negative responses have been documented in the HPI. ROS Other: All systems not noted in ROS Statement are negative. Past Medical History Past Medical History: Hyperlipidemia, Hypertension, Seizure Disorder Additional Past Medical History / Comment(s): Migraines, viral meningitis x3 as a child, 1995, 2000, chronic back pain, nerve blocks 08/2016 and 12/2016. Last seizure 10/10/2020, "ABSENT SEIZURES. HX TACHYCARDIA, GBS/CIPD, PTSD. History of Any Multi-Drug Resistant Organisms: None Reported Past Surgical History: Appendectomy, Section, Cholecystectomy, Hernia Repair, Hysterectomy, Orthopedic Surgery, Tonsillectomy, Tubal Ligation Additional Past Surgical History / Comment(s): Hiatal Hernia, umbilical hernia repair, left rotator cuff repair, bilateral knee scopes, pain clinic procedures- occipital nerve block. abd exploratory sx(endometreosis), 3 abd scopes 1981, 1989, 1991), lumbar puncture. EGD. nerve biopsy, salvalry gland biospy Past Anesthesia/Blood Transfusion Reactions: No Reported Reaction Additional Past Anesthesia/Blood Transfusion Reaction / Comment(s): Claustrophobic Past Psychological History: Anxiety, Bipolar, Panic Disorder, PTSD Smoking Status: Current every day smoker Past Alcohol Use History: None Reported Past Drug Use History: None Reported - Past Family History Mother Family Medical History: Cancer, Dementia, Diabetes Mellitus, GERD/Reflux, Hyperlipidemia, Hypertension, Thyroid Disorder Additional Family Medical History / Comment(s): Quad CABG, cardiac stents, toes ampuated. Father History Unknown: Yes Family Medical History: No Reported History General Exam Limitations: no limitations General appearance: alert, in no apparent distress Head exam: Present: atraumatic, normocephalic, normal inspection Eye exam: Present: normal appearance, PERRL, EOMI. Absent: scleral icterus, conjunctival injection, periorbital swelling Neck exam: Present: normal inspection Respiratory exam: Present: normal lung sounds bilaterally. Absent: respiratory distress, wheezes, rales, rhonchi, stridor Cardiovascular Exam: Present: regular rate, normal rhythm, normal heart sounds. Absent: systolic murmur, diastolic murmur, rubs, gallop, clicks Extremities exam: Present: normal inspection, full ROM, normal capillary refill. Absent: tenderness, pedal edema, joint swelling, calf tenderness Neurological exam: Present: alert, oriented X3 Psychiatric exam: Present: normal affect, normal mood Skin exam: Present: warm, dry, intact, normal color. Absent: rash Course Vital Signs 11/03/20 17:09 Temperature 98.5 F Pulse Rate 118 H Respiratory 18 Rate Blood Pressure 136/94 O2 Sat by Pulse 97 Oximetry Medical Decision Making - Medical Decision Making 50-year-old female with history of chronic migraines complaining of a migraine for several days. 1 L normal saline, 1 mg of Dilaudid, 4 mg of Zofran ordered. Case discussed with Dr. Bergeron, patient can discharge home with follow-up to urology and primary care. Disposition Clinical Impression: Chronic headache, Migraine Disposition: HOME SELF-CARE Condition: Stable Instructions (If sedation given, give patient instructions): Acute Headache (ED) Additional Instructions: Please return to the Emergency Department if symptoms worsen or any other concerns. Follow-up with primary care in the next several days. Follow-up with neurology as planned. Is patient prescribed a controlled substance at d/c from ED?: No Referrals: José Reece MD [Primary Care Provider] - 1-2 days Time of Disposition: 18:00
[2020-11-03] MEDS ORDERED: diphenhydrAMINE 50 MG/ML 1 ML VIAL IVP STA (18:12)
[2020-11-03 18:23] VITALS: BP 146/96; PULSE 90; RESP 20
== END 2020-11-03 18:59 | disposition home or self-care (01) ==
LOC: EC 17:06
DX: G43.909 Migraine, unspecified, not intractable, without status migrainosus (principal); I10 Essential (primary) hypertension; E78.5 Hyperlipidemia, unspecified; F31.9 Bipolar disorder, unspecified; F41.9 Anxiety disorder, unspecified; G40.909 Epilepsy, unspecified, not intractable, without status epilepticus; F17.200 Nicotine dependence, unspecified, uncomplicated; Z79.891 Long term (current) use of opiate analgesic; Z79.899 Other long term (current) drug therapy; Z88.0 Allergy status to penicillin; Z88.1 Allergy status to other antibiotic agents; Z88.2 Allergy status to sulfonamides; Z88.5 Allergy status to narcotic agent; Z88.6 Allergy status to analgesic agent; Z88.8 Allergy status to other drugs, medicaments and biological substances; Z91.040 Latex allergy status; Z90.49 Acquired absence of other specified parts of digestive tract; Z82.49 Family history of ischemic heart disease and other diseases of the circulatory system; Z83.3 Family history of diabetes mellitus; Z83.49 Family history of other endocrine, nutritional and metabolic diseases
CPT/HCPCS: 96374; 96375 ×2; 96376; 96361 ×2; 99284; J1200; J2405; J1170

== ENCOUNTER 2020-11-05 15:52 | Emergency (ER) | payer OTHER ==
[2020-11-05 16:01] VITALS: TEMP 98.2
[2020-11-05] MEDS ORDERED: SODIUM CHLORIDE 0.9% 1,000 ML IV STA (16:07)
[2020-11-05] MEDS ORDERED: HYDROmorphone 1 MG/ML 1 ML SYRINGE IVP STA ×2 (16:07→17:39)
[2020-11-05] MEDS ORDERED: ONDANSETRON 4 MG/2 ML VIAL IVP STA (16:07)
[2020-11-05] MEDS ORDERED: diphenhydrAMINE 50 MG/ML 1 ML VIAL IVP STA (16:51)
--- NOTE | 2020-11-05 16:58 | ED ---
Headache HPI - General Chief Complaint: Headache Stated Complaint: Revisit/Migraine Time Seen by Provider: 11/05/20 16:00 Mode of arrival: wheelchair Limitations: no limitations - History of Present Illness Initial Comments: 50-year-old female with history of migraines presents emergency department with a chief complaint of a migraine. Patient reports this feels a typical migraine, one sided with photophobia and nausea but no vomiting. States she was on migraine abortive medication but it was recently declined due to her insurance. States this feels exactly her typical migraine. Gradual onset and not the worst headache of her life. Denies one-sided weakness paresthesias. Denies any visual changes. - Related Data Home Medications Medication Instructions Recorded Confirmed Atorvastatin [Lipitor] 40 mg PO HS 04/02/17 10/10/20 Lacosamide [Vimpat] 100 mg PO BID 06/04/17 10/10/20 HYDROcodone/APAP 7.5-325MG [[place] 1 tab PO TID PRN 07/06/17 10/10/20 7.5-325] Galcanezumab-Gnlm [Emgality Pen] 120 mg SQ Q30D 04/28/20 10/10/20 amLODIPine [Norvasc] 5 mg PO DAILY 04/28/20 10/10/20 hydrOXYzine pamoate [Vistaril] 25 mg PO TID PRN 09/06/20 10/10/20 Previous Rx's Medication Instructions Recorded Acetaminophen Tab [Tylenol] 650 mg PO Q6HR PRN tab 10/16/20 Promethazine Suppository 12.5 mg RECTAL TID PRN #30 supp 10/16/20 [Phenergan] Scopolamine 1.5MG/72Hr Patch 1 patch TRANSDERM Q72H #5 patch 10/16/20 [TransDerm Scop] Allergies Allergy/AdvReac Type Severity Reaction Status Date / Time dihydroergotamine Allergy Unknown Unknown Verified 11/05/20 15:57 [From Migranal] gabapentin [From Neurontin] Allergy Itching/Swe Verified 11/05/20 15:57 lling latex Allergy Anaphylaxis Verified 11/05/20 15:57 naproxen [From Naprosyn] Allergy Anaphylaxis Verified 11/05/20 15:57 Penicillins Allergy Anaphylaxis Verified 11/05/20 15:57 prednisone Allergy Swelling Verified 11/05/20 15:57 quetiapine fumarate Allergy Itching, Verified 11/05/20 15:57 [From Seroquel] leg cramps rofecoxib [From Vioxx] Allergy Itching, Verified 11/05/20 15:57 leg cramps terfenadine [From Seldane] Allergy Rash/Hives Verified 11/05/20 15:57 tramadol Allergy Nausea & Verified 11/05/20 15:57 Vomiting/LEG CRAMPS/HEART FLUTTERS calcium carbonate [From DHEA] AdvReac Chest Pain Verified 11/05/20 15:57 calcium phosphate,dibasic AdvReac Chest Pain Verified 11/05/20 15:57 [From DHEA] clindamycin AdvReac muscle Verified 11/05/20 15:57 cramps clonidine AdvReac fast Verified 11/05/20 15:57 heartbeat, migraine dextromethorphan HBr AdvReac face/neck Verified 11/05/20 15:57 [From NyQuil] flushing diazepam [From Valium] AdvReac Nausea & Verified 11/05/20 15:57 Vomiting divalproex sodium AdvReac Nausea & Verified 11/05/20 15:57 [From Depakote] Vomiting doxylamine [From NyQuil] AdvReac face "beet Verified 11/05/20 15:57 red", elevated temp. ibuprofen [From Motrin] AdvReac abdominal Verified 11/05/20 15:57 & muscle cramps indomethacin [From Indocin] AdvReac Abdominal Verified 11/05/20 15:57 Pain,N/V ketorolac tromethamine AdvReac "built up Verified 11/05/20 15:57 [From Toradol] in system", had to be given something to reverse lorazepam [From Ativan] AdvReac Nausea & Verified 11/05/20 15:57 Vomiting memantine [From Namenda] AdvReac Itching Verified 11/05/20 15:57 metoclopramide HCl AdvReac muscle Verified 11/05/20 15:57 [From Reglan] cramps nortriptyline [From Pamelor] AdvReac Chest Pain Verified 11/05/20 15:57 prasterone (DHEA) [From DHEA] AdvReac Chest Pain Verified 11/05/20 15:57 prochlorperazine AdvReac leg Verified 11/05/20 15:57 [From Compazine] cramping propranolol AdvReac Chest Pain Verified 11/05/20 15:57 pseudoephedrine HCl AdvReac face "beet Verified 11/05/20 15:57 [From NyQuil] red", elevated temp. quetiapine [From Seroquel] AdvReac leg Verified 11/05/20 15:57 cramping sumatriptan [From Imitrex] AdvReac migrane Verified 11/05/20 15:57 sumatriptan succinate AdvReac migrane Verified 11/05/20 15:57 [From Imitrex] topiramate [From Topamax] AdvReac "built up Verified 11/05/20 15:57 in system", had to be given something to reverse trazodone AdvReac "built up Verified 11/05/20 15:57 in system", had to be given something to reverse zolpidem tartrate AdvReac "Became Verified 11/05/20 15:57 [From Ambien] violent with no memory" zonisamide [From Zonegran] AdvReac inability Verified 11/05/20 15:57 to eat artificial sweetener AdvReac SEVERE Uncoded 11/05/20 15:57 MIGRAINE HEADACHE Review of Systems ROS Statement: Those systems with pertinent positive or pertinent negative responses have been documented in the HPI. ROS Other: All systems not noted in ROS Statement are negative. Past Medical History Past Medical History: Hyperlipidemia, Hypertension, Seizure Disorder Additional Past Medical History / Comment(s): Migraines, viral meningitis x3 as a child, 1995, 2000, chronic back pain, nerve blocks 08/2016 and 12/2016. Last seizure 10/10/2020, "ABSENT SEIZURES. HX TACHYCARDIA, GBS/CIPD, PTSD. History of Any Multi-Drug Resistant Organisms: None Reported Past Surgical History: Appendectomy, Section, Cholecystectomy, Hernia Repair, Hysterectomy, Orthopedic Surgery, Tonsillectomy, Tubal Ligation Additional Past Surgical History / Comment(s): Hiatal Hernia, umbilical hernia repair, left rotator cuff repair, bilateral knee scopes, pain clinic procedures- occipital nerve block. abd exploratory sx(endometreosis), 3 abd scopes 1981, 1989, 1991), lumbar puncture. EGD. nerve biopsy, salvalry gland biospy Past Anesthesia/Blood Transfusion Reactions: No Reported Reaction Additional Past Anesthesia/Blood Transfusion Reaction / Comment(s): Claustrophobic Past Psychological History: Anxiety, Bipolar, Panic Disorder, PTSD Smoking Status: Current every day smoker Past Alcohol Use History: None Reported Past Drug Use History: None Reported - Past Family History Mother Family Medical History: Cancer, Dementia, Diabetes Mellitus, GERD/Reflux, Hyperlipidemia, Hypertension, Thyroid Disorder Additional Family Medical History / Comment(s): Quad CABG, cardiac stents, toes ampuated. Father History Unknown: Yes Family Medical History: No Reported History General Exam Limitations: no limitations General appearance: alert, in no apparent distress Head exam: Present: atraumatic, normocephalic, normal inspection Eye exam: Present: normal appearance, PERRL, EOMI Pupils: Present: normal accommodation ENT exam: Present: normal exam, normal oropharynx, mucous membranes moist Neck exam: Present: normal inspection, full ROM. Absent: tenderness Respiratory exam: Present: normal lung sounds bilaterally. Absent: respiratory distress, wheezes, rales, rhonchi, stridor Cardiovascular Exam: Present: regular rate, normal rhythm, normal heart sounds. Absent: systolic murmur Extremities exam: Present: normal inspection, full ROM, normal capillary refill. Absent: tenderness Back exam: Present: normal inspection, full ROM. Absent: tenderness, CVA tenderness (R), CVA tenderness (L) Neurological exam: Present: alert, oriented X3 Psychiatric exam: Present: normal affect, normal mood Skin exam: Present: warm, dry, intact, normal color Course Vital Signs 11/05/20 15:53 Temperature 98.2 F Pulse Rate 118 H Respiratory 20 Rate Blood Pressure 140/95 O2 Sat by Pulse 95 Oximetry Medical Decision Making - Medical Decision Making 50-year-old female with history of migraines presents emergency department with a chief complaint of a migraine. On physical examination, patient has no focal neuro deficits. She is normal to emergency department for recurrent visits. Patient was given Dilaudid, IV fluids, Benadryl and Zofran. On reevaluation, she reports improving symptoms. She'll be discharged with outpatient follow-up. Case discussed with physician. Disposition Clinical Impression: Migraine headache Disposition: HOME SELF-CARE Condition: Stable Instructions (If sedation given, give patient instructions): Acute Headache (ED) Additional Instructions: Please return to the Emergency Department if symptoms worsen or any other concerns. Is patient prescribed a controlled substance at d/c from ED?: No Referrals: José Reece MD [Primary Care Provider] - 1-2 days Time of Disposition: 17:39
[2020-11-05 18:00] VITALS: RESP 18
[2020-11-05 18:01] VITALS: BP 154/102; PULSE 96
== END 2020-11-05 18:05 | disposition home or self-care (01) ==
LOC: EC 15:52
DX: G43.909 Migraine, unspecified, not intractable, without status migrainosus (principal); I10 Essential (primary) hypertension; E78.5 Hyperlipidemia, unspecified; G40.909 Epilepsy, unspecified, not intractable, without status epilepticus; F17.200 Nicotine dependence, unspecified, uncomplicated; Z83.3 Family history of diabetes mellitus; Z82.49 Family history of ischemic heart disease and other diseases of the circulatory system; Z88.1 Allergy status to other antibiotic agents; Z88.0 Allergy status to penicillin; Z88.2 Allergy status to sulfonamides; Z88.5 Allergy status to narcotic agent; Z88.6 Allergy status to analgesic agent; Z88.8 Allergy status to other drugs, medicaments and biological substances; Z79.891 Long term (current) use of opiate analgesic; Z79.899 Other long term (current) drug therapy
CPT/HCPCS: 96374; 96375 ×2; 96376; 96361; 99284; J1200; J2405; J1170

== ENCOUNTER 2020-11-08 10:52 | Emergency (ER) | payer OTHER ==
[2020-11-08 11:04] VITALS: TEMP 98
[2020-11-08] MEDS ORDERED: SODIUM CHLORIDE 0.9% 1,000 ML IV STA (11:07)
[2020-11-08] MEDS ORDERED: HYDROmorphone 1 MG/ML 1 ML SYRINGE IVP STA ×3 (11:07→13:42)
[2020-11-08] MEDS ORDERED: ONDANSETRON 4 MG/2 ML VIAL IVP STA (11:07)
[2020-11-08] MEDS ORDERED: diphenhydrAMINE 50 MG/ML 1 ML VIAL IVP STA (11:07)
--- NOTE | 2020-11-08 12:45 | ED ---
Headache HPI - General Chief Complaint: Headache Stated Complaint: Headache Time Seen by Provider: 11/08/20 11:05 Source: RN notes reviewed Mode of arrival: wheelchair Limitations: no limitations - History of Present Illness Initial Comments: Patient is a 50-year-old female that is well-known to the emergency Department the comes in complaining of migraine type headache. She notes that she still having issues get in prior authorization for her migraine medication from her neurologist. She notes that she's been having a rough past couple days and her migraines and gotten worse. She notes that she has no new symptoms with her migraines. She denied any chest pain shortness of breath vomiting diarrhea constipation fever fatigue chills. - Related Data Home Medications Medication Instructions Recorded Confirmed Atorvastatin [Lipitor] 40 mg PO HS 04/02/17 10/10/20 Lacosamide [Vimpat] 100 mg PO BID 06/04/17 10/10/20 HYDROcodone/APAP 7.5-325MG [[place] 1 tab PO TID PRN 07/06/17 10/10/20 7.5-325] Galcanezumab-Gnlm [Emgality Pen] 120 mg SQ Q30D 04/28/20 10/10/20 amLODIPine [Norvasc] 5 mg PO DAILY 04/28/20 10/10/20 hydrOXYzine pamoate [Vistaril] 25 mg PO TID PRN 09/06/20 10/10/20 Previous Rx's Medication Instructions Recorded Acetaminophen Tab [Tylenol] 650 mg PO Q6HR PRN tab 10/16/20 Promethazine Suppository 12.5 mg RECTAL TID PRN #30 supp 10/16/20 [Phenergan] Scopolamine 1.5MG/72Hr Patch 1 patch TRANSDERM Q72H #5 patch 10/16/20 [TransDerm Scop] Allergies Allergy/AdvReac Type Severity Reaction Status Date / Time dihydroergotamine Allergy Unknown Unknown Verified 11/08/20 11:01 [From Migranal] gabapentin [From Neurontin] Allergy Itching/Swe Verified 11/08/20 11:01 lling latex Allergy Anaphylaxis Verified 11/08/20 11:01 naproxen [From Naprosyn] Allergy Anaphylaxis Verified 11/08/20 11:01 Penicillins Allergy Anaphylaxis Verified 11/08/20 11:01 prednisone Allergy Swelling Verified 11/08/20 11:01 quetiapine fumarate Allergy Itching, Verified 11/08/20 11:01 [From Seroquel] leg cramps rofecoxib [From Vioxx] Allergy Itching, Verified 11/08/20 11:01 leg cramps terfenadine [From Seldane] Allergy Rash/Hives Verified 11/08/20 11:01 tramadol Allergy Nausea & Verified 11/08/20 11:01 Vomiting/LEG CRAMPS/HEART FLUTTERS calcium carbonate [From DHEA] AdvReac Chest Pain Verified 11/08/20 11:01 calcium phosphate,dibasic AdvReac Chest Pain Verified 11/08/20 11:01 [From DHEA] clindamycin AdvReac muscle Verified 11/08/20 11:01 cramps clonidine AdvReac fast Verified 11/08/20 11:01 heartbeat, migraine dextromethorphan HBr AdvReac face/neck Verified 11/08/20 11:01 [From NyQuil] flushing diazepam [From Valium] AdvReac Nausea & Verified 11/08/20 11:01 Vomiting divalproex sodium AdvReac Nausea & Verified 11/08/20 11:01 [From Depakote] Vomiting doxylamine [From NyQuil] AdvReac face "beet Verified 11/08/20 11:01 red", elevated temp. ibuprofen [From Motrin] AdvReac abdominal Verified 11/08/20 11:01 & muscle cramps indomethacin [From Indocin] AdvReac Abdominal Verified 11/08/20 11:01 Pain,N/V ketorolac tromethamine AdvReac "built up Verified 11/08/20 11:01 [From Toradol] in system", had to be given something to reverse lorazepam [From Ativan] AdvReac Nausea & Verified 11/08/20 11:01 Vomiting memantine [From Namenda] AdvReac Itching Verified 11/08/20 11:01 metoclopramide HCl AdvReac muscle Verified 11/08/20 11:01 [From Reglan] cramps nortriptyline [From Pamelor] AdvReac Chest Pain Verified 11/08/20 11:01 prasterone (DHEA) [From DHEA] AdvReac Chest Pain Verified 11/08/20 11:01 prochlorperazine AdvReac leg Verified 11/08/20 11:01 [From Compazine] cramping propranolol AdvReac Chest Pain Verified 11/08/20 11:01 pseudoephedrine HCl AdvReac face "beet Verified 11/08/20 11:01 [From NyQuil] red", elevated temp. quetiapine [From Seroquel] AdvReac leg Verified 11/08/20 11:01 cramping sumatriptan [From Imitrex] AdvReac migrane Verified 11/08/20 11:01 sumatriptan succinate AdvReac migrane Verified 11/08/20 11:01 [From Imitrex] topiramate [From Topamax] AdvReac "built up Verified 11/08/20 11:01 in system", had to be given something to reverse trazodone AdvReac "built up Verified 11/08/20 11:01 in system", had to be given something to reverse zolpidem tartrate AdvReac "Became Verified 11/08/20 11:01 [From Ambien] violent with no memory" zonisamide [From Zonegran] AdvReac inability Verified 11/08/20 11:01 to eat artificial sweetener AdvReac SEVERE Uncoded 11/05/20 15:57 MIGRAINE HEADACHE Review of Systems ROS Statement: Those systems with pertinent positive or pertinent negative responses have been documented in the HPI. ROS Other: All systems not noted in ROS Statement are negative. Past Medical History Past Medical History: Hyperlipidemia, Hypertension, Seizure Disorder Additional Past Medical History / Comment(s): Migraines, viral meningitis x3 as a child, 1995, 2000, chronic back pain, nerve blocks 08/2016 and 12/2016. Last seizure 10/10/2020, "ABSENT SEIZURES. HX TACHYCARDIA, GBS/CIPD, PTSD. History of Any Multi-Drug Resistant Organisms: None Reported Past Surgical History: Appendectomy, Section, Cholecystectomy, Hernia Repair, Hysterectomy, Orthopedic Surgery, Tonsillectomy, Tubal Ligation Additional Past Surgical History / Comment(s): Hiatal Hernia, umbilical hernia repair, left rotator cuff repair, bilateral knee scopes, pain clinic procedures- occipital nerve block. abd exploratory sx(endometreosis), 3 abd scopes 1981, 1989, 1991), lumbar puncture. EGD. nerve biopsy, salvalry gland biospy Past Anesthesia/Blood Transfusion Reactions: No Reported Reaction Additional Past Anesthesia/Blood Transfusion Reaction / Comment(s): Claustrophobic Past Psychological History: Anxiety, Bipolar, Panic Disorder, PTSD Smoking Status: Current every day smoker Past Alcohol Use History: None Reported Past Drug Use History: None Reported - Past Family History Mother Family Medical History: Cancer, Dementia, Diabetes Mellitus, GERD/Reflux, Hyperlipidemia, Hypertension, Thyroid Disorder Additional Family Medical History / Comment(s): Quad CABG, cardiac stents, toes ampuated. Father History Unknown: Yes Family Medical History: No Reported History General Exam Limitations: no limitations General appearance: alert, in distress Head exam: Present: atraumatic, normocephalic, normal inspection Eye exam: Present: normal appearance, PERRL, EOMI. Absent: scleral icterus, conjunctival injection, periorbital swelling Neck exam: Present: normal inspection Respiratory exam: Present: normal lung sounds bilaterally. Absent: respiratory distress, wheezes, rales, rhonchi, stridor Cardiovascular Exam: Present: regular rate, normal rhythm, normal heart sounds. Absent: systolic murmur, diastolic murmur, rubs, gallop, clicks GI/Abdominal exam: Present: soft, normal bowel sounds. Absent: distended, tenderness, guarding, rebound, rigid Extremities exam: Present: normal inspection, full ROM, normal capillary refill. Absent: tenderness, pedal edema, joint swelling, calf tenderness Neurological exam: Present: alert, oriented X3 Psychiatric exam: Present: normal affect, normal mood Skin exam: Present: warm, dry, intact, normal color. Absent: rash Course Vital Signs 11/08/20 11:01 Temperature 98 F Pulse Rate 118 H Respiratory 18 Rate Blood Pressure 151/104 O2 Sat by Pulse 98 Oximetry Medical Decision Making - Medical Decision Making 50-year-old female is well-known to the ER complaining of migraine type headache. Liter normal saline, 50 mg Benadryl, 4 mg Zofran, 1 mg Dilaudid ordered. Upon reevaluation patient states that she is feeling better. Case discussed with Dr. Herrera, patient discharge home with follow-up to neurology as planned. Disposition Clinical Impression: Chronic headache, Migraine Disposition: HOME SELF-CARE Condition: Stable Instructions (If sedation given, give patient instructions): Acute Headache (ED) Additional Instructions: Please return to the Emergency Department if symptoms worsen or any other concerns. Follow-up with primary care and urologist as planned in the next 1-2 days. Continue take at home medications as prescribed. Is patient prescribed a controlled substance at d/c from ED?: No Referrals: José Reece MD [Primary Care Provider] - 1-2 days Time of Disposition: 12:44
[2020-11-08 14:01] VITALS: BP 151/108; PULSE 111; RESP 16
== END 2020-11-08 14:01 | disposition home or self-care (01) ==
LOC: EC 10:52
DX: G43.909 Migraine, unspecified, not intractable, without status migrainosus (principal); G40.909 Epilepsy, unspecified, not intractable, without status epilepticus; E78.5 Hyperlipidemia, unspecified; I10 Essential (primary) hypertension; F31.9 Bipolar disorder, unspecified; F41.9 Anxiety disorder, unspecified; F17.200 Nicotine dependence, unspecified, uncomplicated; Z98.51 Tubal ligation status; Z90.710 Acquired absence of both cervix and uterus; Z90.49 Acquired absence of other specified parts of digestive tract; Z88.1 Allergy status to other antibiotic agents; Z88.0 Allergy status to penicillin; Z88.2 Allergy status to sulfonamides; Z88.5 Allergy status to narcotic agent; Z88.6 Allergy status to analgesic agent; Z91.040 Latex allergy status
CPT/HCPCS: 99283; 96374; 96375 ×2; 96376 ×2; 96361; J1200; J2405; J1170

== ENCOUNTER 2020-11-13 19:06 | Emergency (ER) | payer OTHER ==
[2020-11-13 19:26] VITALS: TEMP 98.6
[2020-11-13] MEDS ORDERED: SODIUM CHLORIDE 0.9% 1,000 ML IV STA (20:49)
[2020-11-13] MEDS ORDERED: ONDANSETRON 4 MG/2 ML VIAL IVP STA (20:52)
[2020-11-13] MEDS ORDERED: HYDROmorphone 1 MG/ML 1 ML SYRINGE IVP STA ×2 (20:52→23:09)
[2020-11-13 21:34] LABS: ALT 19 U/L (4-34); AST 32 U/L (14-36); African American GFR (CKD) >90 (>60 ml/min/1.73 sqM); Albumin 3.1 g/dL (3.5-5.0); Alkaline Phosphatase 135 U/L (38-126); Anion Gap 8 mmol/L; Blood Urea Nitrogen 2 mg/dL (7-17); Calcium 8.4 mg/dL (8.4-10.2); Carbon Dioxide 26 mmol/L (22-30); Chloride 103 mmol/L (98-107); Glucose 103 mg/dL (74-99); Non-African American GFR(CKD) >90 (>60 ml/min/1.73 sqM); Potassium 3.2 mmol/L (3.5-5.1); Sodium 137 mmol/L (137-145); Total Bilirubin 0.2 mg/dL (0.2-1.3); Total Protein 5.6 g/dL (6.3-8.2)
[2020-11-13 21:36] LABS: Basophils # (A) 0.1 k/uL (0-0.2); Basophils % (A) 1 %; Eosinophils # (A) 0.1 k/uL (0-0.7); Eosinophils % (A) 1 %; HCT 38.6 % (34.0-46.0); HGB 12.8 gm/dL (11.4-16.0); Lymphocytes # (A) 2.4 k/uL (1.0-4.8); Lymphocytes % (A) 31 %; MCH 31.8 pg (25.0-35.0); MCHC 33.3 g/dL (31.0-37.0); MCV 95.4 fL (80.0-100.0); Mean Platelet Volume 8.8; Monocytes # (A) 0.5 k/uL (0-1.0); Monocytes % (A) 6 %; Neutrophils # (A) 4.6 k/uL (1.3-7.7); Neutrophils % (A) 57 %; Platelet Count 249 k/uL (150-450); RBC 4.04 m/uL (3.80-5.40); RDW 15.8 % (11.5-15.5)
[2020-11-13] MEDS ORDERED: diphenhydrAMINE 50 MG/ML 1 ML VIAL IVP STA (21:38)
[2020-11-13 21:50] VITALS: RESP 16
--- NOTE | 2020-11-13 22:00 | ED ---
Seizure HPI - General Chief Complaint: Seizure Stated Complaint: Headache Time Seen by Provider: 11/13/20 20:38 Source: patient Mode of arrival: wheelchair - History of Present Illness Initial Comments: 50-year-old female with history of seizures or migraines presents emergency d epartment chief complaint of a seizure and migraine. Patient reports she has stress-induced seizures. Her mother states they are also absent seizures and the patient supposedly has an infrequent basis. Patient states these occur frequently whenever her migraine headache is persistent. She reports the migraine is located on the left side, I will for past 2 days. Reports photophobia and nausea with vomiting. However, she denies any visual changes one-sided weakness paresthesias. Gradual onset headache and not the worst headache of her life. Denies any tonic-clonic seizures or movements. - Related Data Home Medications Medication Instructions Recorded Confirmed Atorvastatin [Lipitor] 40 mg PO HS 04/02/17 10/10/20 Lacosamide [Vimpat] 100 mg PO BID 06/04/17 10/10/20 HYDROcodone/APAP 7.5-325MG [[place] 1 tab PO TID PRN 07/06/17 10/10/20 7.5-325] Galcanezumab-Gnlm [Emgality Pen] 120 mg SQ Q30D 04/28/20 10/10/20 amLODIPine [Norvasc] 5 mg PO DAILY 04/28/20 10/10/20 hydrOXYzine pamoate [Vistaril] 25 mg PO TID PRN 09/06/20 10/10/20 Previous Rx's Medication Instructions Recorded Acetaminophen Tab [Tylenol] 650 mg PO Q6HR PRN tab 10/16/20 Promethazine Suppository 12.5 mg RECTAL TID PRN #30 supp 10/16/20 [Phenergan] Scopolamine 1.5MG/72Hr Patch 1 patch TRANSDERM Q72H #5 patch 10/16/20 [TransDerm Scop] Butorphanol Tartrate [Stadol Nasal 1 spray NASAL ONCE #1 bottle 11/08/20 [place]] Allergies Allergy/AdvReac Type Severity Reaction Status Date / Time dihydroergotamine Allergy Unknown Unknown Verified 11/08/20 11:01 [From Migranal] gabapentin [From Neurontin] Allergy Itching/Swe Verified 11/08/20 11:01 lling latex Allergy Anaphylaxis Verified 11/13/20 19:26 naproxen [From Naprosyn] Allergy Anaphylaxis Verified 11/13/20 19:26 Penicillins Allergy Anaphylaxis Verified 11/13/20 19:26 prednisone Allergy Swelling Verified 11/13/20 19:26 quetiapine fumarate Allergy Itching, Verified 11/13/20 19:26 [From Seroquel] leg cramps rofecoxib [From Vioxx] Allergy Itching, Verified 11/13/20 19:26 leg cramps terfenadine [From Seldane] Allergy Rash/Hives Verified 11/13/20 19:26 tramadol Allergy Nausea & Verified 11/13/20 19:26 Vomiting/LEG CRAMPS/HEART FLUTTERS calcium carbonate [From DHEA] AdvReac Chest Pain Verified 11/13/20 19:26 calcium phosphate,dibasic AdvReac Chest Pain Verified 11/13/20 19:26 [From DHEA] clindamycin AdvReac muscle Verified 11/13/20 19:26 cramps clonidine AdvReac fast Verified 11/13/20 19:26 heartbeat, migraine dextromethorphan HBr AdvReac face/neck Verified 11/13/20 19:26 [From NyQuil] flushing diazepam [From Valium] AdvReac Nausea & Verified 11/13/20 19:26 Vomiting divalproex sodium AdvReac Nausea & Verified 11/13/20 19:26 [From Depakote] Vomiting doxylamine [From NyQuil] AdvReac face "beet Verified 11/13/20 19:26 red", elevated temp. ibuprofen [From Motrin] AdvReac abdominal Verified 11/13/20 19:26 & muscle cramps indomethacin [From Indocin] AdvReac Abdominal Verified 11/13/20 19:26 Pain,N/V ketorolac tromethamine AdvReac "built up Verified 11/13/20 19:26 [From Toradol] in system", had to be given something to reverse lorazepam [From Ativan] AdvReac Nausea & Verified 11/13/20 19:26 Vomiting memantine [From Namenda] AdvReac Itching Verified 11/13/20 19:26 metoclopramide HCl AdvReac muscle Verified 11/13/20 19:26 [From Reglan] cramps nortriptyline [From Pamelor] AdvReac Chest Pain Verified 11/13/20 19:26 prasterone (DHEA) [From DHEA] AdvReac Chest Pain Verified 11/13/20 19:26 prochlorperazine AdvReac leg Verified 11/13/20 19:26 [From Compazine] cramping propranolol AdvReac Chest Pain Verified 11/13/20 19:26 pseudoephedrine HCl AdvReac face "beet Verified 11/13/20 19:26 [From NyQuil] red", elevated temp. quetiapine [From Seroquel] AdvReac leg Verified 11/13/20 19:26 cramping sumatriptan [From Imitrex] AdvReac migrane Verified 11/13/20 19:26 sumatriptan succinate AdvReac migrane Verified 11/13/20 19:26 [From Imitrex] topiramate [From Topamax] AdvReac "built up Verified 11/13/20 19:26 in system", had to be given something to reverse trazodone AdvReac "built up Verified 11/13/20 19:26 in system", had to be given something to reverse zolpidem tartrate AdvReac "Became Verified 11/13/20 19:26 [From Ambien] violent with no memory" zonisamide [From Zonegran] AdvReac inability Verified 11/13/20 19:26 to eat artificial sweetener AdvReac SEVERE Uncoded 11/05/20 15:57 MIGRAINE HEADACHE Review of Systems ROS Statement: Those systems with pertinent positive or pertinent negative responses have been documented in the HPI. ROS Other: All systems not noted in ROS Statement are negative. Past Medical History Past Medical History: Hyperlipidemia, Hypertension, Seizure Disorder Additional Past Medical History / Comment(s): Migraines, viral meningitis x3 as a child, 1995, 2000, chronic back pain, nerve blocks 08/2016 and 12/2016. Last seizure 10/10/2020, "ABSENT SEIZURES. HX TACHYCARDIA, GBS/CIPD, PTSD. History of Any Multi-Drug Resistant Organisms: None Reported Past Surgical History: Appendectomy, Section, Cholecystectomy, Hernia Repair, Hysterectomy, Orthopedic Surgery, Tonsillectomy, Tubal Ligation Additional Past Surgical History / Comment(s): Hiatal Hernia, umbilical hernia repair, left rotator cuff repair, bilateral knee scopes, pain clinic procedures-occipital nerve block. abd exploratory sx(endometreosis), 3 abd scopes 1981, 1989, 1991), lumbar puncture. EGD. nerve biopsy, salvalry gland biospy Past Anesthesia/Blood Transfusion Reactions: No Reported Reaction Additional Past Anesthesia/Blood Transfusion Reaction / Comment(s): Claustrophobic Past Psychological History: Anxiety, Bipolar, Panic Disorder, PTSD Smoking Status: Current every day smoker Past Alcohol Use History: None Reported Past Drug Use History: None Reported - Past Family History Mother Family Medical History: Cancer, Dementia, Diabetes Mellitus, GERD/Reflux, Hyperlipidemia, Hypertension, Thyroid Disorder Additional Family Medical History / Comment(s): Quad CABG, cardiac stents, toes ampuated. Father History Unknown: Yes Family Medical History: No Reported History General Exam Limitations: no limitations General appearance: alert, in no apparent distress Head exam: Present: atraumatic, normocephalic, normal inspection Eye exam: Present: normal appearance Pupils: Present: normal accommodation ENT exam: Present: normal exam, normal oropharynx, mucous membranes moist Neck exam: Present: normal inspection, full ROM. Absent: tenderness, lymphadenopathy, thyromegaly Respiratory exam: Present: normal lung sounds bilaterally. Absent: respiratory distress, wheezes, rales Cardiovascular Exam: Present: regular rate, normal rhythm, normal heart sounds. Absent: systolic murmur GI/Abdominal exam: Present: soft. Absent: distended, tenderness, guarding, rebound Extremities exam: Present: normal inspection, full ROM, normal capillary refill. Absent: tenderness, pedal edema, joint swelling Back exam: Present: normal inspection, full ROM. Absent: tenderness Neurological exam: Present: alert, oriented X3, CN II-XII intact, normal gait Psychiatric exam: Present: normal affect, normal mood Skin exam: Present: warm, dry, intact, normal color Course Vital Signs 11/13/20 11/13/20 11/14/20 19:22 21:27 00:14 Temperature 98.6 F Pulse Rate 113 H 99 100 Respiratory 18 16 16 Rate Blood Pressure 138/88 161/99 147/99 O2 Sat by Pulse 100 99 97 Oximetry Medical Decision Making - Medical Decision Making 50-year-old female with history of seizures and migraine headaches presents emergency Department with a chief complaint of migraine headache and seizure. On physical examination, patient's well-appearing. No focal neural deficits. Medical records reviewed showed the patient has frequent visits to the ED for the same chief complaint of migraine headaches. Laboratory work shows no acute findings. Patient unable to give a urine sample. Patient was given IV fluids, analgesia and antiemetics. On reevaluation, she reports improvement in symptoms. I advised the patient to follow with primary care physician. Patient states she feels comfortable going home. Strict return parameters were thoroughly discussed with patient is understanding and agreeable. Case disc ussed with physician. - Lab Data Result diagrams: 11/13/20 21:06 08 21:06 Lab Results 11/13/20 11/13/20 11/13/20 Range/Units 21:06 21:06 21:06 WBC 8.0 (3.8-10.6) k/uL RBC 4.04 (3.80-5.40) m/uL Hgb 12.8 (11.4-16.0) gm/dL Hct 38.6 (34.0-46.0) % MCV 95.4 (80.0-100.0) fL MCH 31.8 (25.0-35.0) pg MCHC 33.3 (31.0-37.0) g/dL RDW 15.8 H (11.5-15.5) % Plt Count 249 (150-450) k/uL MPV 8.8 Neutrophils % 57 % Lymphocytes % 31 % Monocytes % 6 % Eosinophils % 1 % Basophils % 1 % Neutrophils # 4.6 (1.3-7.7) k/uL Lymphocytes # 2.4 (1.0-4.8) k/uL Monocytes # 0.5 (0-1.0) k/uL Eosinophils # 0.1 (0-0.7) k/uL Basophils # 0.1 (0-0.2) k/uL Sodium 137 (137-145) mmol/L Potassium 3.2 L (3.5-5.1) mmol/L Chloride 103 (98-107) mmol/L Carbon Dioxide 26 (22-30) mmol/L Anion Gap 8 mmol/L BUN 2 L (7-17) mg/dL Creatinine 0.72 (0.52-1.04) mg/dL Est GFR (CKD-EPI)AfAm >90 (>60 ml/min/1.73 sqM) Est GFR (CKD-EPI)NonAf >90 (>60 ml/min/1.73 sqM) Glucose 103 H (74-99) mg/dL Plasma Lactic Acid Ed (0.7-2.0) mmol/L Calcium 8.4 (8.4-10.2) mg/dL Magnesium 2.0 (1.6-2.3) mg/dL Total Bilirubin 0.2 (0.2-1.3) mg/dL AST 32 (14-36) U/L ALT 19 (4-34) U/L Alkaline Phosphatase 135 H (38-126) U/L Total Protein 5.6 L (6.3-8.2) g/dL Albumin 3.1 L (3.5-5.0) g/dL 11/13/20 Range/Units 21:06 WBC (3.8-10.6) k/uL RBC (3.80-5.40) m/uL Hgb (11.4-16.0) gm/dL Hct (34.0-46.0) % MCV (80.0-100.0) fL MCH (25.0-35.0) pg MCHC (31.0-37.0) g/dL RDW (11.5-15.5) % Plt Count (150-450) k/uL MPV Neutrophils % % Lymphocytes % % Monocytes % % Eosinophils % % Basophils % % Neutrophils # (1.3-7.7) k/uL Lymphocytes # (1.0-4.8) k/uL Monocytes # (0-1.0) k/uL Eosinophils # (0-0.7) k/uL Basophils # (0-0.2) k/uL Sodium (137-145) mmol/L Potassium (3.5-5.1) mmol/L Chloride (98-107) mmol/L Carbon Dioxide (22-30) mmol/L Anion Gap mmol/L BUN (7-17) mg/dL Creatinine (0.52-1.04) mg/dL Est GFR (CKD-EPI)AfAm (>60 ml/min/1.73 sqM) Est GFR (CKD-EPI)NonAf (>60 ml/min/1.73 sqM) Glucose (74-99) mg/dL Plasma Lactic Acid Ed 2.0 (0.7-2.0) mmol/L Calcium (8.4-10.2) mg/dL Magnesium (1.6-2.3) mg/dL Total Bilirubin (0.2-1.3) mg/dL AST (14-36) U/L ALT (4-34) U/L Alkaline Phosphatase (38-126) U/L Total Protein (6.3-8.2) g/dL Albumin (3.5-5.0) g/dL Disposition Clinical Impression: Nausea and vomiting, Headache Disposition: HOME SELF-CARE Condition: Stable Instructions (If sedation given, give patient instructions): Migraine Headache (ED) Additional Instructions: Please return to the Emergency Department if symptoms worsen or any other concerns. Is patient prescribed a controlled substance at d/c from ED?: No Referrals: José Reece MD [Primary Care Provider] - 1-2 days Time of Disposition: 23:16
[2020-11-13] MEDS ORDERED: POTASSIUM CHLORIDE ER 10 MEQ TAB.ER.PRT PO STA (23:00)
[2020-11-14 00:16] VITALS: BP 147/99; PULSE 100
== END 2020-11-14 | disposition home or self-care (01) ==
LOC: EC 19:06
DX: R51.9 Headache, unspecified (principal); R11.2 Nausea with vomiting, unspecified; I10 Essential (primary) hypertension; E78.5 Hyperlipidemia, unspecified; F31.9 Bipolar disorder, unspecified; F41.9 Anxiety disorder, unspecified; G40.909 Epilepsy, unspecified, not intractable, without status epilepticus; F17.200 Nicotine dependence, unspecified, uncomplicated; Z79.899 Other long term (current) drug therapy; Z82.49 Family history of ischemic heart disease and other diseases of the circulatory system; Z83.3 Family history of diabetes mellitus; Z83.49 Family history of other endocrine, nutritional and metabolic diseases; Z88.0 Allergy status to penicillin; Z88.1 Allergy status to other antibiotic agents; Z88.2 Allergy status to sulfonamides; Z88.5 Allergy status to narcotic agent; Z88.6 Allergy status to analgesic agent; Z88.8 Allergy status to other drugs, medicaments and biological substances; Z90.49 Acquired absence of other specified parts of digestive tract
CPT/HCPCS: 36415; 93005; 80053; 83605; 83735; 85025; 96374; 96375 ×2; 96376; 96361; 99284; J1200; J2405; J1170

== ENCOUNTER 2020-11-15 11:55 | Observation (INO) | payer OTHER ==
[2020-11-15] MEDS ORDERED: ONDANSETRON 4 MG/2 ML VIAL IVP STA ×2 (12:34→17:44)
[2020-11-15] MEDS ORDERED: HYDROmorphone 0.5 MG/0.5 ML SYRINGE IVP STA ×4 (12:34→17:44)
[2020-11-15] MEDS ORDERED: diphenhydrAMINE 50 MG/ML 1 ML VIAL IVP STA ×2 (12:34→14:19)
[2020-11-15] MEDS ORDERED: SODIUM CHLORIDE 0.9% 1,000 ML IV STA (12:34)
[2020-11-15 14:57] LABS: Anisocytosis Slight; Basophils % (A) 0 %; Eosinophils % (A) 0 %; HCT 39.7 % (34.0-46.0); HGB 13.3 gm/dL (11.4-16.0); Lymphocytes # (A) 1.8 k/uL (1.0-4.8); Lymphocytes % (A) 17 %; MCH 31.9 pg (25.0-35.0); MCHC 33.5 g/dL (31.0-37.0); MCV 95.3 fL (80.0-100.0); Mean Platelet Volume 8.8; Monocytes # (A) 0.5 k/uL (0-1.0); Monocytes % (A) 5 %; Neutrophils # (A) 7.8 k/uL (1.3-7.7); Neutrophils % (A) 76 %; Platelet Count 277 k/uL (150-450); RBC 4.16 m/uL (3.80-5.40); RDW 16.1 % (11.5-15.5); WBC 10.4 k/uL (3.8-10.6)
--- NOTE | 2020-11-15 15:07 | CT ---
EXAMINATION TYPE: CT brain wo con DATE OF EXAM: 11/15/2020 COMPARISON: CT brain 07/25/2020 HISTORY: Headache CT DLP: 1019.4 mGycm. Automated Exposure Control for Dose Reduction was Utilized. TECHNIQUE: CT scan of the head is performed without contrast. FINDINGS: There is no acute intracranial hemorrhage, mass effect, or midline shift identified. The ventricles and sulci are within normal limits in size. The globes are intact and the visualized sin uses are clear. There is artifact on the exam. Possibly partially empty sella noted incidentally. IMPRESSION: No acute intracranial hemorrhage, mass effect, or midline shift is seen.
[2020-11-15 15:08] LABS: ALT 20 U/L (4-34); AST 34 U/L (14-36); African American GFR (CKD) >90 (>60 ml/min/1.73 sqM); Albumin 3.5 g/dL (3.5-5.0); Alkaline Phosphatase 160 U/L (38-126); Anion Gap 7 mmol/L; Blood Urea Nitrogen <2 mg/dL (7-17); Calcium 8.6 mg/dL (8.4-10.2); Carbon Dioxide 27 mmol/L (22-30); Chloride 105 mmol/L (98-107); Glucose 111 mg/dL (74-99); Magnesium 1.9 mg/dL (1.6-2.3); Non-African American GFR(CKD) >90 (>60 ml/min/1.73 sqM); Sodium 139 mmol/L (137-145); Total Bilirubin 0.2 mg/dL (0.2-1.3); Total Protein 6.2 g/dL (6.3-8.2)
[2020-11-15] MEDS ORDERED: LIDOCAINE 1% INJ 10MG/ML (20 ML MDV) SQ ONE (15:35)
[2020-11-15] MEDS ORDERED: VANCOMYCIN IV PER PHARMACY 1 EACH MISC MISCELLANE PRN (15:36)
--- NOTE | 2020-11-15 15:44 | XR ---
EXAMINATION TYPE: XR chest 1V portable DATE OF EXAM: 11/15/2020 COMPARISON: 06/01/2019 HISTORY: Headache TECHNIQUE: Single frontal view of the chest is obtained. FINDINGS: Right-sided Mediport catheter seen with the tip overlying the SVC. Arthropathy of the shou lders. Heart size normal. No overt failure. IMPRESSION: No acute process.
[2020-11-15] MEDS ORDERED: VANCOMYCIN 1,250 MG in SODIUM CHLORIDE 0.9% 250 ML IVPB STA (15:45)
[2020-11-15] MEDS ORDERED: ONDANSETRON 4 MG/2 ML VIAL IVP PRN (16:37)
[2020-11-15] MEDS ORDERED: ALBUTEROL NEBULIZED 2.5 MG/3 ML INHALATION PRN (16:59)
[2020-11-15] MEDS ORDERED: POTASSIUM CHLORIDE ER 20 MEQ TAB.ER PO STA (17:11)
[2020-11-15] MEDS ORDERED: VERAPAMIL SR 180 MG TABLET.ER PO STA (17:17)
--- NOTE | 2020-11-15 18:38 | ED ---
General Adult HPI - General Chief complaint: Headache Stated complaint: Migraine Time Seen by Provider: 11/15/20 12:10 Source: patient, RN notes reviewed, old records reviewed Mode of arrival: ambulatory Limitations: no limitations - History of Present Illness Initial comments: Patient is a 50-year-old female with past medical history remarkable for jocelyn dean, hyperlipidemia, hypertension, seizure disorder, chronic back pain, meningitis who presents emergency Department complaining of what she believes is likely her migraine headache. She states that she is having posterior skull headache pain that radiates towards both eyes. 9/10 in severity. She states that this is relatively typical for her migraine headaches, however it is normally does unilateral. She denies any current fevers, chills, sick contacts. Denies any abdominal pain, nausea, vomiting. She does endorse some mild neck stiffness worse when touching her chin to her chest or looking up. She denies any urinary complaints, abdominal complaints at this time. She denies any chest pain or shortness of breath. 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 She is a frequent visitor to the emergency department for her migraines. She does endorse mild photophobia. She states she does have moderate to severe photophobia. She has any new weakness or numbness. She alex es any vision changes. She has no other acute complaint at this time. She is seeking pain relief for her migraine headache. When asked about the neck stiffness, she states she typically does not have neck stiffness with her migraines, but states it has happened before. She is concerned that it may be meningitis but is more consistent with migraines at this time. She would like treatment for migraines initially to see if that improves prior to receiving any form of management for rule out meningitis. Her symptoms began this morning. No known sick contacts. She states she was febrile at home once she believes it was over 100 deg F. - Related Data Home Medications Medication Instructions Recorded Confirmed Atorvastatin [Lipitor] 40 mg PO HS 04/02/17 11/15/20 Lacosamide [Vimpat] 100 mg PO BID 06/04/17 11/15/20 HYDROcodone/APAP 7.5-325MG [Alsey 1 tab PO TID PRN 07/06/17 11/15/20 7.5-325] Galcanezumab-Gnlm [Emgality Pen] 120 mg SQ Q30D 04/28/20 11/15/20 amLODIPine [Norvasc] 5 mg PO DAILY 04/28/20 11/15/20 hydrOXYzine pamoate [Vistaril] 25 mg PO TID PRN 09/06/20 11/15/20 Albuterol Inhaler [Ventolin Hfa 1 - 2 puff INHALATION RT-Q6H PRN 11/15/20 11/15/20 Inhaler] Hyoscyamine Sulfate [Levsin] 0.125 mg PO Q4H 11/15/20 11/15/20 Omeprazole 40 mg PO HS 11/15/20 11/15/20 Allergies Allergy/AdvReac Type Severity Reaction Status Date / Time dihydroergotamine Allergy Unknown Unknown Verified 11/15/20 16:52 [From Migranal] gabapentin [From Neurontin] Allergy Itching/Swe Verified 11/15/20 16:52 lling latex Allergy Anaphylaxis Verified 11/15/20 16:52 naproxen [From Naprosyn] Allergy Anaphylaxis Verified 11/15/20 16:52 Penicillins Allergy Anaphylaxis Verified 11/15/20 16:52 prednisone Allergy Swelling Verified 11/15/20 16:52 quetiapine fumarate Allergy Itching, Verified 11/15/20 16:52 [From Seroquel] leg cramps rofecoxib [From Vioxx] Allergy Itching, Verified 11/15/20 16:52 leg cramps terfenadine [From Seldane] Allergy Rash/Hives Verified 11/15/20 16:52 tramadol Allergy Nausea & Verified 11/15/20 16:52 Vomiting/LEG CRAMPS/HEART FLUTTERS calcium carbonate [From DHEA] AdvReac Chest Pain Verified 11/15/20 16:52 calcium phosphate,dibasic AdvReac Chest Pain Verified 11/15/20 16:52 [From DHEA] clindamycin AdvReac muscle Verified 11/15/20 16:52 cramps clonidine AdvReac fast Verified 11/15/20 16:52 heartbeat, migraine dextromethorphan HBr AdvReac face/neck Verified 11/15/20 16:52 [From NyQuil] flushing diazepam [From Valium] AdvReac Nausea & Verified 11/15/20 16:52 Vomiting divalproex sodium AdvReac Nausea & Verified 11/15/20 16:52 [From Depakote] Vomiting doxylamine [From NyQuil] AdvReac face "beet Verified 11/15/20 16:52 red", elevated temp. ibuprofen [From Motrin] AdvReac abdominal Verified 11/15/20 16:52 & muscle cramps indomethacin [From Indocin] AdvReac Abdominal Verified 11/15/20 16:52 Pain,N/V ketorolac tromethamine AdvReac "built up Verified 11/15/20 16:52 [From Toradol] in system", had to be given something to reverse lorazepam [From Ativan] AdvReac Nausea & Verified 11/15/20 16:52 Vomiting memantine [From Namenda] AdvReac Itching Verified 11/15/20 16:52 metoclopramide HCl AdvReac muscle Verified 11/15/20 16:52 [From Reglan] cramps nortriptyline [From Pamelor] AdvReac Chest Pain Verified 11/15/20 16:52 prasterone (DHEA) [From DHEA] AdvReac Chest Pain Verified 11/15/20 16:52 prochlorperazine AdvReac leg Verified 11/15/20 16:52 [From Compazine] cramping propranolol AdvReac Chest Pain Verified 11/15/20 16:52 pseudoephedrine HCl AdvReac face "beet Verified 11/15/20 16:52 [From NyQuil] red", elevated temp. quetiapine [From Seroquel] AdvReac leg Verified 11/15/20 16:52 cramping sumatriptan [From Imitrex] AdvReac migrane Verified 11/15/20 16:52 sumatriptan succinate AdvReac migrane Verified 11/15/20 16:52 [From Imitrex] topiramate [From Topamax] AdvReac "built up Verified 11/15/20 16:52 in system", had to be given something to reverse trazodone AdvReac "built up Verified 11/15/20 16:52 in system", had to be given something to reverse zolpidem tartrate AdvReac "Became Verified 11/15/20 16:52 [From Ambien] violent with no memory" zonisamide [From Zonegran] AdvReac inability Verified 11/15/20 16:52 to eat artificial sweetener AdvReac SEVERE Uncoded 11/15/20 12:01 MIGRAINE HEADACHE Review of Systems ROS Statement: Those systems with pertinent positive or pertinent negative responses have been documented in the HPI. Review of Systems: CONST: Denies fever EYES: Denies blurry vision ENT: Denies nasal congestion C/V: Denies Chest pain RESP: Denies shortness of breath GI: Denies abdominal pain : Denies dysuria SKIN: Denies rash. MSK: Endorses mild neck stiffness NEURO: Endorses headache ROS Other: All systems not noted in ROS Statement are negative. Past Medical History Past Medical History: Hyperlipidemia, Hypertension, Seizure Disorder Additional Past Medical History / Comment(s): Migraines, viral meningitis x3 as a child, 1995, 2000, chronic back pain, nerve blocks 08/2016 and 12/2016. Last seizure 10/10/2020, "ABSENT SEIZURES. HX TACHYCARDIA, GBS/CIPD, PTSD. History of Any Multi-Drug Resistant Organisms: None Reported Past Surgical History: Appendectomy, Section, Cholecystectomy, Hernia Repair, Hysterectomy, Orthopedic Surgery, Tonsillectomy, Tubal Ligation Additional Past Surgical History / Comment(s): Hiatal Hernia, umbilical hernia repair, left rotator cuff repair, bilateral knee scopes, pain clinic procedures- occipital nerve block. abd exploratory sx(endometreosis), 3 abd scopes 1981, 1989, 1991), lumbar puncture. EGD. nerve biopsy, salvalry gland biospy Past Anesthesia/Blood Transfusion Reactions: No Reported Reaction Additional Past Anesthesia/Blood Transfusion Reaction / Comment(s): Claustrophobic Past Psychological History: Anxiety, Bipolar, Panic Disorder, PTSD Smoking Status: Current every day smoker Past Alcohol Use History: None Reported Past Drug Use History: None Reported - Past Family History Mother Family Medical History: Cancer, Dementia, Diabetes Mellitus, GERD/Reflux, Hyperlipidemia, Hypertension, Thyroid Disorder Additional Family Medical History / Comment(s): Quad CABG, cardiac stents, toes ampuated. Father History Unknown: Yes Family Medical History: No Reported History General Exam - General Exam Comments Initial Comments: General: Appears in moderate distress secondary to headache. HEAD: Normal with no signs of head trauma. EYES: PERRLA, EOMI, conjunctiva normal, no discharge. Pupils are 3 mm and equal bilaterally. ENT: Hearing grossly intact, normal oropharynx. RESPIRATORY: Clear breath sounds bilaterally. No wheezes, rales, or rhonchi. C/V: Regular rate and rhythm. S1 and S2 auscultated, no edema, peripheral pulses 2+ and intact throughout. Patient does have a right-sided chest port due to difficult IV draws frequently tries in the past. ABD: Abd is soft, nontender, nondistended EXT: Normal range of motion, no obvious deformity. Patient has no thoracic or lumbar spine tenderness palpation. She has no midline cervical spine tenderness to palpation but does have what she describes as stiff neck, particularly with flexion and extension. She does have intact rotory movement horizontally. SKIN: No rashes or lesions observed on exposed skin. NEURO: Alert and oriented x 4. Cranial nerves II-XII intact. No focal sensory or strength deficits. Cerebellar function appears intact with normal finger to nose testing. Patient is able to ambulate. No focal findings on neurological exam. Limitations: no limitations Course Vital Signs 11/15/20 11/15/20 11/15/20 11:57 12:59 13:59 Temperature 98.5 F Pulse Rate 122 H Respiratory 20 18 18 Rate Blood Pressure 134/97 O2 Sat by Pulse 100 Oximetry 11/15/20 11/15/20 11/15/20 14:00 15:00 16:00 Temperature Pulse Rate 104 H 104 H 100 Respiratory 18 18 18 Rate Blood Pressure 150/112 152/102 O2 Sat by Pulse 95 95 95 Oximetry 11/15/20 17:00 Temperature Pulse Rate 85 Respiratory 18 Rate Blood Pressure 146/97 O2 Sat by Pulse 95 Oximetry Procedures - [place]rence Protocol (Time Out) Procedure Performed:: lumbar [place] Performing Provider: Cayetano Hein Nurse: Marques Dejesus Patient Identification (2 identifiers required): Chart, Verbal, Arm Band, Name, Birthdate Patient/Legal Field Supervisor has Confirmed: Identity, Site, Procedure, Consent Site: back Site Marked: Yes Site Verified With Patient/Guardian: Yes - Lumbar Puncture Consent Obtained: written consent Indication for Procedure: headache Patient Position: left lateral decubitus Skin Prep: Povidone-Iodine 1%, 0.5% Chlorhexidine/Alcohol Local Anesthetic Used: Lidocaine 1% Spinal Needle Gauge: 22G Spinal Needle Length: 2in Interspace Used: L4-L5 Complications: unable to obtain CSF Patient Tolerated Procedure: well Additional Comments: Multiple attempts unsuccessful by myself, with being unable to obtain CSF. Medical Decision Making - Medical Decision Making Based on the patient's presentation and physical exam, I do believe she is likely having a migraine headache but I cannot rule out the possibility of meningitis with her neck stiffness which is atypical for her migraines. I did discuss at length with the patient and we both agreed that initially, we'll attempt to treat the patient's migraine headache with pain management. She does believe it is just her typical migraine at this time. Therefore, patient will be administered IV Dilaudid, Zofran, Benadryl as wasn't as a 1 L fluid bolus, as the patient states that she is not ALLERGIC to any of his medications. Typical migraine cocktail will not work for the patient, she states she has severe ALLERGIES to Toradol as well as Compazine. On reevaluation after. Of observation, patient's headache remains at a 9 out of 10. She states that the neck stiffness is worsening. To her that I would like to rule out the possibility of meningitis at this time. She was in agreement this plan. If her blood cultures, basic labs, CT head, and chest x-ray will be obtained. She was in agreement with this plan. Patient's laboratory studies are remarkable for a normal white blood cell count. Patient has hypokalemia which is chronic. Remainder of her laboratory studies are relatively unremarkable. Patient's chest x-ray reveals no acute cardio primary process. Patient's CT head revealed no acute intracranial process. At this time, lumbar puncture will be attempted by myself. Patient was started on empiric antibiotics after discussion with neurology. Patient be started on Rocephin as well as vancomycin. Lumbar puncture was attemped by myself and failed, as I was unable to obtain CSF fluid.. Therefore consulted anesthesia to complete a lumbar puncture which was performed and successful. Per ONLINE MERCHANDISING COORDINATOR, anesthesia, opening pressures were mildly elevated to mid 40s. CSF laboratory studies were drawn and sent. At this time, patient is already on empiric antibiotic for possible meningitis. CT imaging was negative. Patient will be admitted to the hospital for her antibiotics, results of CSF studies, as well as management of her migraine headache. She was in agreement with this plan. I spoke with the admitting physician, Dr. Rodriguez who accepted the patient was in agreement with the plan. I also consult to neurology, Dr. Retana who agreed to evaluate the patient. Patient was therefore admitted to the hospital and serous condition. - Lab Data Result diagrams: 11/15/20 14:43 11/15/20 14:43 Lab Results 11/15/20 11/15/20 11/15/20 Range/Units 14:43 14:43 14:43 WBC 10.4 (3.8-10.6) k/uL RBC 4.16 (3.80-5.40) m/uL Hgb 13.3 (11.4-16.0) gm/dL Hct 39.7 (34.0-46.0) % MCV 95.3 (80.0-100.0) fL MCH 31.9 (25.0-35.0) pg MCHC 33.5 (31.0-37.0) g/dL RDW 16.1 H (11.5-15.5) % Plt Count 277 (150-450) k/uL MPV 8.8 Neutrophils % 76 % Lymphocytes % 17 % Monocytes % 5 % Eosinophils % 0 % Basophils % 0 % Neutrophils # 7.8 H (1.3-7.7) k/uL Lymphocytes # 1.8 (1.0-4.8) k/uL Monocytes # 0.5 (0-1.0) k/uL Eosinophils # 0.0 (0-0.7) k/uL Basophils # 0.0 (0-0.2) k/uL Anisocytosis Slight Sodium 139 (137-145) mmol/L Potassium 3.0 L (3.5-5.1) mmol/L Chloride 105 (98-107) mmol/L Carbon Dioxide 27 (22-30) mmol/L Anion Gap 7 mmol/L BUN <2 L (7-17) mg/dL Creatinine 0.60 (0.52-1.04) mg/dL Est GFR (CKD-EPI)AfAm >90 (>60 ml/min/1.73 sqM) Est GFR (CKD-EPI)NonAf >90 (>60 ml/min/1.73 sqM) Glucose 111 H (74-99) mg/dL Plasma Lactic Acid Ed 1.0 (0.7-2.0) mmol/L Calcium 8.6 (8.4-10.2) mg/dL Magnesium 1.9 (1.6-2.3) mg/dL Total Bilirubin 0.2 (0.2-1.3) mg/dL AST 34 (14-36) U/L ALT 20 (4-34) U/L Alkaline Phosphatase 160 H (38-126) U/L Total Protein 6.2 L (6.3-8.2) g/dL Albumin 3.5 (3.5-5.0) g/dL Disposition Clinical Impression: Migraine, Hypokalemia, Chronic headaches Narrative: Concern for possible meningitis Disposition: ADMITTED IP TO THIS [facility] Condition: Serious Referrals: José Reece MD [Primary Care Provider] - 1-2 days
[2020-11-15 19:10] LABS: Appearance,CSF Clear; CSF Tube Number 3; CSF Tube Volume 6; Nucleated Cells, CSF 1 u/L (0-5); Red Blood Cell,CSF 0 u/L (0-10)
[2020-11-15 19:11] LABS: Glucose,CSF 68 mg/dL (40-70); Total Protein,CSF 27 mg/dL (12-60)
[2020-11-15] MEDS: VALPROATE SODIUM 250 MG in SODIUM CHLORIDE 0.9% 50 ML IVPB SCH ×2 (19:51→23:40)
[2020-11-15] MEDS: HYDROcodone/APAP 7.5-325MG 1 EACH TAB PO PRN (20:00)
[2020-11-15] MEDS: LACOSAMIDE 50 MG TABLET PO SCH (22:06)
[2020-11-15] MEDS: ATORVASTATIN 40 MG TAB PO SCH (22:06)
[2020-11-15] MEDS: PANTOPRAZOLE 40 MG TABLET PO SCH (22:06)
[2020-11-15] MEDS: hydrOXYzine pamoate 25 MG CAP PO PRN (23:46)
[2020-11-16] MEDS: VANCOMYCIN 1,250 MG in SODIUM CHLORIDE 0.9% 250 ML IVPB SCH ×3 (01:56→17:23)
[2020-11-16] MEDS: VALPROATE SODIUM 250 MG in SODIUM CHLORIDE 0.9% 50 ML IVPB SCH ×3 (06:01→16:48)
[2020-11-16 06:36] LABS: African American GFR (CKD) >90 (>60 ml/min/1.73 sqM); Non-African American GFR(CKD) >90 (>60 ml/min/1.73 sqM)
[2020-11-16] MEDS: HYDROcodone/APAP 7.5-325MG 1 EACH TAB PO PRN ×2 (07:43→19:52)
[2020-11-16] MEDS: LACOSAMIDE 50 MG TABLET PO SCH ×2 (07:43→19:46)
[2020-11-16] MEDS: amLODIPine 5 MG TAB PO SCH (07:43)
[2020-11-16] MEDS ORDERED: VANCOMYCIN TROUGH DUE 1 EACH MISC MISCELLANE ONE (08:00)
[2020-11-16] MEDS: BUTALB/APAP/CAFF 50-325-40MG TAB PO PRN ×2 (13:08→19:48)
[2020-11-16] MEDS ORDERED: LORazepam 2 MG/ML INJ IV STA (13:22)
[2020-11-16 13:52] VITALS: BMI 28.7
--- NOTE | 2020-11-16 15:10 | P.HPIM ---
History of Present Illness H&P Date: 11/15/20 Patient is a 50-year-old female with the history of migraine came in with the complaints of severe headache bitemporal and the posterior radiating to both eyes 12/15.As per the patient patient symptoms are her typical migraine symptoms. Patient denied any nausea vomiting patient has has photophobia as per the patient and was also complaining of neck rigidity. Patient doesn't have any leukocytosis patient doesn't look septic or toxic patient doesn't have any fever patient did have history of meningitis probably aseptic meningitis. Patient underwent LP yesterday CSF is not consistent with meningitis. Patient has an elevated opening pressure but this was done in sitting position because of which that measurement is not appropriate. My suspicion for pseudotumor cerebri is low considering that opening pressure was done and patient was sitting and has symptoms didn't resolve with LP. Patient Requesting for Dilaudid Patient Is ALLERGIC to multiple medications that can be given for migraine R any other headache. Patient has low potassium of 3.0 . Patient is already on emgality for migraine. Patient was started on valproic acid and verapamil for migraine prevention. She denied any recent sick contacts. REVIEW OF SYSTEMS: CONSTITUTIONAL: No fever, no malaise, no fatigue. HEENT: No recent visual problems or hearing problems. Denied any sore throat. CARDIOVASCULAR: No chest pain, orthopnea, PND, no palpitations, no syncope. PULMONARY: No shortness of breath, no cough, no hemoptysis. GASTROINTESTINAL: No diarrhea, no nausea, no vomiting, no abdominal pain. NEUROLOGICAL: no weakness, no numbness. HEMATOLOGICAL: Denies any bleeding or petechiae. GENITOURINARY: Denies any burning micturition, frequency, or urgency. MUSCULOSKELETAL/RHEUMATOLOGICAL: Denies any joint pain, swelling, or any muscle pain. ENDOCRINE: Denies any polyuria or polydipsia. The rest of the 14-point review of systems is negative. PHYSICAL EXAMINATION: GENERAL: The patient is alert and oriented x3, not in any acute distress. Well developed, well nourished. HEENT: Pupils are round and equally reacting to light. EOMI. No scleral icterus. No conjunctival pallor. Normocephalic, atraumatic. No pharyngeal erythema. No thyromegaly. CARDIOVASCULAR: S1 and S2 present. No murmurs, rubs, or gallops. PULMONARY: Chest is clear to auscultation, no wheezing or crackles. ABDOMEN: Soft, nontender, nondistended, normoactive bowel sounds. No palpable organomegaly. MUSCULOSKELETAL: No joint swelling or deformity. EXTREMITIES: No cyanosis, clubbing, or pedal edema. NEUROLOGICAL: Gross neurological examination did not reveal any focal deficits. SKIN: No rashes. Assessment and plan -Intractable headache: Patient will be treated for migraine. Patient follows up for any and was to [place] for migraine patient was monitored overnight, and neurology will be consulted. We will await the CSF analysis,, will rule out meningitis possibility of which is extremely low. Patient was started on valproic acid and verapamil continue with the her home migraine medications. Avoid opiates. Patient has multiple ER visits for multiple other symptoms. Possibility of psychosomatic is him on narcotic seeking behavior. -Hyperlipidemia -Hypertension -Seizure disorder Hypokalemia potassium was replaced DVT prophylaxis: Early ambulation Past Medical History Past Medical History: Hyperlipidemia, Hypertension, Seizure Disorder Additional Past Medical History / Comment(s): Migraines, viral meningitis x3 as a child, 1995, 2000, chronic back pain, nerve blocks 08/2016 and 12/2016. Last seizure 10/10/2020, "ABSENT SEIZURES. HX TACHYCARDIA, GBS/CIPD, PTSD. History of Any Multi-Drug Resistant Organisms: None Reported Past Surgical History: Appendectomy, Section, Cholecystectomy, Hernia Repair, Hysterectomy, Orthopedic Surgery, Tonsillectomy, Tubal Ligation Additional Past Surgical History / Comment(s): Hiatal Hernia, umbilical hernia repair, left rotator cuff repair, bilateral knee scopes, pain clinic procedures- occipital nerve block. abd exploratory sx(endometreosis), 3 abd scopes 1981, 1989, 1991), lumbar puncture. EGD. nerve biopsy, salvalry gland biospy Past Anesthesia/Blood Transfusion Reactions: No Reported Reaction Additional Past Anesthesia/Blood Transfusion Reaction / Comment(s): Claustrophobic Past Psychological History: Anxiety, Bipolar, Panic Disorder, PTSD Additional Psychological History / Comment(s): lives at home. Smoking Status: Current every day smoker Past Alcohol Use History: None Reported Additional Past Alcohol Use History / Comment(s): SMOKED SINCE 1982, WAS 1 PPD, NOW 4-5 CIGARETTES PER DAY. Past Drug Use History: None Reported - Past Family History Mother Family Medical History: Cancer, Dementia, Diabetes Mellitus, GERD/Reflux, Hyperlipidemia, Hypertension, Thyroid Disorder Additional Family Medical History / Comment(s): Quad CABG, cardiac stents, toes ampuated. Father History Unknown: Yes Family Medical History: No Reported History Medications and Allergies Home Medications Medication Instructions Recorded Confirmed Type Atorvastatin [Lipitor] 40 mg PO HS 04/02/17 11/15/20 History Lacosamide [Vimpat] 100 mg PO BID 06/04/17 11/15/20 History HYDROcodone/APAP 7.5-325MG [[place] 1 tab PO TID PRN 07/06/17 11/15/20 History 7.5-325] Galcanezumab-Gnlm [Emgality Pen] 120 mg SQ Q30D 04/28/20 11/15/20 History amLODIPine [Norvasc] 5 mg PO DAILY 04/28/20 11/15/20 History hydrOXYzine pamoate [Vistaril] 25 mg PO TID PRN 09/06/20 11/15/20 History Albuterol Inhaler [Ventolin Hfa 1 - 2 puff INHALATION RT-Q6H PRN 11/15/20 11/15/20 History Inhaler] Hyoscyamine Sulfate [Levsin] 0.125 mg PO Q4H 11/15/20 11/15/20 History Omeprazole 40 mg PO HS 11/15/20 11/15/20 History Allergies Allergy/AdvReac Type Severity Reaction Status Date / Time dihydroergotamine Allergy Unknown Unknown Verified 11/15/20 16:52 [From Migranal] gabapentin [From Neurontin] Allergy Itching/Swe Verified 11/15/20 16:52 lling latex Allergy Anaphylaxis Verified 11/15/20 16:52 naproxen [From Naprosyn] Allergy Anaphylaxis Verified 11/15/20 16:52 Penicillins Allergy Anaphylaxis Verified 11/15/20 16:52 prednisone Allergy Swelling Verified 11/15/20 16:52 quetiapine fumarate Allergy Itching, Verified 11/15/20 16:52 [From Seroquel] leg cramps rofecoxib [From Vioxx] Allergy Itching, Verified 11/15/20 16:52 leg cramps terfenadine [From Seldane] Allergy Rash/Hives Verified 11/15/20 16:52 tramadol Allergy Nausea & Verified 11/15/20 16:52 Vomiting/LEG CRAMPS/HEART FLUTTERS calcium carbonate [From DHEA] AdvReac Chest Pain Verified 11/15/20 16:52 calcium phosphate,dibasic AdvReac Chest Pain Verified 11/15/20 16:52 [From DHEA] clindamycin AdvReac muscle Verified 11/15/20 16:52 cramps clonidine AdvReac fast Verified 11/15/20 16:52 heartbeat, migraine dextromethorphan HBr AdvReac face/neck Verified 11/15/20 16:52 [From NyQuil] flushing diazepam [From Valium] AdvReac Nausea & Verified 11/15/20 16:52 Vomiting divalproex sodium AdvReac Nausea & Verified 11/15/20 16:52 [From Depakote] Vomiting doxylamine [From NyQuil] AdvReac face "beet Verified 11/15/20 16:52 red", elevated temp. ibuprofen [From Motrin] AdvReac abdominal Verified 11/15/20 16:52 & muscle cramps indomethacin [From Indocin] AdvReac Abdominal Verified 11/15/20 16:52 Pain,N/V ketorolac tromethamine AdvReac "built up Verified 11/15/20 16:52 [From Toradol] in system", had to be given something to reverse lorazepam [From Ativan] AdvReac Nausea & Verified 11/15/20 16:52 Vomiting memantine [From Namenda] AdvReac Itching Verified 11/15/20 16:52 metoclopramide HCl AdvReac muscle Verified 11/15/20 16:52 [From Reglan] cramps nortriptyline [From Pamelor] AdvReac Chest Pain Verified 11/15/20 16:52 prasterone (DHEA) [From DHEA] AdvReac Chest Pain Verified 11/15/20 16:52 prochlorperazine AdvReac leg Verified 11/15/20 16:52 [From Compazine] cramping propranolol AdvReac Chest Pain Verified 11/15/20 16:52 pseudoephedrine HCl AdvReac face "beet Verified 11/15/20 16:52 [From NyQuil] red", elevated temp. quetiapine [From Seroquel] AdvReac leg Verified 11/15/20 16:52 cramping sumatriptan [From Imitrex] AdvReac migrane Verified 11/15/20 16:52 sumatriptan succinate AdvReac migrane Verified 11/15/20 16:52 [From Imitrex] topiramate [From Topamax] AdvReac "built up Verified 11/15/20 16:52 in system", had to be given something to reverse trazodone AdvReac "built up Verified 11/15/20 16:52 in system", had to be given something to reverse zolpidem tartrate AdvReac "Became Verified 11/15/20 16:52 [From Ambien] violent with no memory" zonisamide [From Zonegran] AdvReac inability Verified 11/15/20 16:52 to eat artificial sweetener AdvReac SEVERE Uncoded 11/15/20 12:01 MIGRAINE HEADACHE Physical Exam Vitals: Vital Signs Temp Pulse Pulse Resp BP BP Pulse Ox 11/16/20 02:00 98.4 F 95 16 143/90 99 11/15/20 22:03 99.2 F 109 H 16 156/99 97 11/15/20 19:57 81 20 149/88 94 L 11/15/20 19:00 80 18 95 11/15/20 18:00 82 18 95 11/15/20 17:00 85 18 146/97 95 11/15/20 16:00 100 18 152/102 95 11/15/20 15:00 104 H 18 95 11/15/20 14:00 104 H 18 150/112 95 11/15/20 13:59 18 11/15/20 12:59 18 11/15/20 11:57 98.5 F 122 H 20 134/97 100 Intake and Output 11/15/20 11/16/20 11/16/20 22:59 06:59 14:59 Intake Total 590 Balance 590 Intake: Oral 590 Other: # Voids 2 Weight 73.482 kg Results CBC & Chem 7: 11/15/20 14:43 11/16/20 06:00 Labs: Abnormal Lab Results - Last 24 Hours (Table) 11/15/20 11/15/20 Range/Units 14:43 14:43 RDW 16.1 H (11.5-15.5) % Neutrophils # 7.8 H (1.3-7.7) k/uL Potassium 3.0 L (3.5-5.1) mmol/L BUN <2 L (7-17) mg/dL Glucose 111 H (74-99) mg/dL Alkaline Phosphatase 160 H (38-126) U/L Total Protein 6.2 L (6.3-8.2) g/dL Microbiology - Last 24 Hours (Table) 11/15/20 17:49 CSF Gram Stain - Preliminary Cerebral Spinal Fluid CSF Culture - Preliminary Thrombosis Risk Factor Assmnt - Choose All That Apply Any of the Below Risk Factors Present?: Yes Each Factor Represents 1 point: Age 41-60 years, Obesity (BMI >25) Other Risk Factors: No Other congenital or acquired thrombophilia - If yes, enter type in comment: No Thrombosis Risk Factor Assessment Total Risk Factor Score: 2 Thrombosis Risk Factor Assessment Level: Low Risk
--- NOTE | 2020-11-16 16:05 | P.CNNES ---
History of Present Illness Consult date: 11/16/20 Requesting physician: Cayetano Hein Reason for Consult: Rule out meningitis, migraines History of Present Illness: Patient is a 50-year-old female with history of chronic headaches came to the hospital yesterday at 11:55 AM, for evaluation of different type of headaches. Patient currently follows up with Dr. Moore for headache and [facility]. 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 Mcdaniel at [facility]. Patient claims that she has history of meningitis 3 times in 1988, 1996 and 2002 or 2003. All 3 times, the meningitis was from "non-killer" type., Which I presume is either aseptic or viral meningitis. She has chronic migraines. Patient states that she is yohan if she goes 2 days without headache. Patient was recently started on Emgality, which has helped. Patient states that recently she has developed migraines which is different, as it hurts to put her chin to her chest and hurts to look up and she is severely light and noise sensitive. It involves base of the skull and goes to the frontal region. Patient was concerned if she is developing meningitis like she had it before. Patient underwent lumbar puncture in the ER by anesthesia, in [facility] the opening pressure was 42 cm. Apparently the procedure and opening pressure was checked in the sitting position. Patient states that after the procedure, the headache was "little better". However she rates her headache at this time 8-9/10. Her vital signs on arrival blood pressure 134/97, pulse rate 122, temperature 98.5. Her blood pressure has been running slightly high end between 149 - [address] head showed no acute intracranial hemorrhage, mass effect or midline shift. Chest x-ray showed no acute process. Patient's CBC is normal. Sodium 139, potassium 3.0, renal functions are normal. Hepatic panel normal, CSF shows WBC 1, RBC 0, glucose 68 and total proteins normal. Patient's home medication includes Lipitor 40 mg, Vimpat 100 mg twice a day, [place] 7.5 3 times a day when necessary, amlodipine 5 mg, Vistaril, omeprazole and Emgality one 20 mg subcu every month. Patient has smoked a quarter to half pack per day for 37 years. Denies any alcohol or drugs. She states that she is ALLERGIC to Topamax. Depakote did not work in the past. She has failed Fioricet with codeine. Patient has hysterectomy in 2000, does not take any HRT. Review of Systems Patient complains of fatigue, denies any fever or chills. Patient has severe headache, light and noise sensitivity. Denies double vision. No dysphagia, facial droop. She has neuropathy therefore has numbness and tingling, weakness of the muscles. She has numbness from bra line below all the way to the feet. Denies any rash. Denies any abdominal pain. Denies chest pain, or shortness of breath. Past Medical History Past Medical History: Hyperlipidemia, Hypertension, Seizure Disorder Additional Past Medical History / Comment(s): Migraines, viral meningitis x3 as a child, 1995, 2000, chronic back pain, nerve blocks 08/2016 and 12/2016. Last seizure 10/10/2020, "ABSENT SEIZURES. HX TACHYCARDIA, GBS/CIPD, PTSD. History of Any Multi-Drug Resistant Organisms: None Reported Past Surgical History: Appendectomy, Section, Cholecystectomy, Hernia Repair, Hysterectomy, Orthopedic Surgery, Tonsillectomy, Tubal Ligation Additional Past Surgical History / Comment(s): Hiatal Hernia, umbilical hernia repair, left rotator cuff repair, bilateral knee scopes, pain clinic procedures- occipital nerve block. abd exploratory sx(endometreosis), 3 abd scopes 1981, 1989, 1991), lumbar puncture. EGD. nerve biopsy, salvalry gland biospy Past Anesthesia/Blood Transfusion Reactions: No Reported Reaction Additional Past Anesthesia/Blood Transfusion Reaction / Comment(s): Claustrophobic Past Psychological History: Anxiety, Bipolar, Panic Disorder, PTSD Additional Psychological History / Comment(s): lives at home. Smoking Status: Current every day smoker Past Alcohol Use History: None Reported Additional Past Alcohol Use History / Comment(s): SMOKED SINCE 1982, WAS 1 PPD, NOW 4-5 CIGARETTES PER DAY. Past Drug Use History: None Reported - Past Family History Mother Family Medical History: Cancer, Dementia, Diabetes Mellitus, GERD/Reflux, Hyperlipidemia, Hypertension, Thyroid Disorder Additional Family Medical History / Comment(s): Quad CABG, cardiac stents, toes ampuated. Father History Unknown: Yes Family Medical History: No Reported History Medications and Allergies Home Medications Medication Instructions Recorded Confirmed Type Atorvastatin [Lipitor] 40 mg PO HS 04/02/17 11/15/20 History Lacosamide [Vimpat] 100 mg PO BID 06/04/17 11/15/20 History Galcanezumab-Gnlm [Emgality Pen] 120 mg SQ Q30D 04/28/20 11/15/20 History amLODIPine [Norvasc] 5 mg PO DAILY 04/28/20 11/15/20 History hydrOXYzine pamoate [Vistaril] 25 mg PO TID PRN 09/06/20 11/15/20 History Albuterol Inhaler [Ventolin Hfa 1 - 2 puff INHALATION RT-Q6H PRN 11/15/20 11/15/20 History Inhaler] Hyoscyamine Sulfate [Levsin] 0.125 mg PO Q4H 11/15/20 11/15/20 History Omeprazole 40 mg PO HS 11/15/20 11/15/20 History Butalb/APAP/Caff 50-325-40Mg 1 each PO Q4HR PRN #10 tab 11/17/20 Rx [Fioricet 50-325-40] HYDROcodone/APAP 7.5-325MG [[place] 1 tab PO TID PRN #12 tab 11/17/20 Rx 7.5-325] Verapamil Sr [Isoptin Sr] 180 mg PO DAILY 30 Days #30 tab 11/17/20 Rx Allergies Allergy/AdvReac Type Severity Reaction Status Date / Time dihydroergotamine Allergy Unknown Unknown Verified 11/18/20 09:19 [From Migranal] gabapentin [From Neurontin] Allergy Itching/Swe Verified 11/18/20 09:19 lling latex Allergy Anaphylaxis Verified 11/18/20 09:19 naproxen [From Naprosyn] Allergy Anaphylaxis Verified 11/18/20 09:19 Penicillins Allergy Anaphylaxis Verified 11/18/20 09:19 prednisone Allergy Swelling Verified 11/18/20 09:19 quetiapine fumarate Allergy Itching, Verified 11/18/20 09:19 [From Seroquel] leg cramps rofecoxib [From Vioxx] Allergy Itching, Verified 11/18/20 09:19 leg cramps terfenadine [From Seldane] Allergy Rash/Hives Verified 11/18/20 09:19 tramadol Allergy Nausea & Verified 11/18/20 09:19 Vomiting/LEG CRAMPS/HEART FLUTTERS calcium carbonate [From DHEA] AdvReac Chest Pain Verified 11/18/20 09:19 calcium phosphate,dibasic AdvReac Chest Pain Verified 11/18/20 09:19 [From DHEA] clindamycin AdvReac muscle Verified 11/18/20 09:19 cramps clonidine AdvReac fast Verified 11/18/20 09:19 heartbeat, migraine dextromethorphan HBr AdvReac face/neck Verified 11/18/20 09:19 [From NyQuil] flushing diazepam [From Valium] AdvReac Nausea & Verified 11/18/20 09:19 Vomiting divalproex sodium AdvReac Nausea & Verified 11/18/20 09:19 [From Depakote] Vomiting doxylamine [From NyQuil] AdvReac face "beet Verified 11/18/20 09:19 red", elevated temp. ibuprofen [From Motrin] AdvReac abdominal Verified 11/18/20 09:19 & muscle cramps indomethacin [From Indocin] AdvReac Abdominal Verified 11/18/20 09:19 Pain,N/V ketorolac tromethamine AdvReac "built up Verified 11/18/20 09:19 [From Toradol] in system", had to be given something to reverse lorazepam [From Ativan] AdvReac Nausea & Verified 11/18/20 09:19 Vomiting memantine [From Namenda] AdvReac Itching Verified 11/18/20 09:19 metoclopramide HCl AdvReac muscle Verified 11/18/20 09:19 [From Reglan] cramps nortriptyline [From Pamelor] AdvReac Chest Pain Verified 11/18/20 09:19 prasterone (DHEA) [From DHEA] AdvReac Chest Pain Verified 11/18/20 09:19 prochlorperazine AdvReac leg Verified 11/18/20 09:19 [From Compazine] cramping propranolol AdvReac Chest Pain Verified 11/18/20 09:19 pseudoephedrine HCl AdvReac face "beet Verified 11/18/20 09:19 [From NyQuil] red", elevated temp. quetiapine [From Seroquel] AdvReac leg Verified 11/18/20 09:19 cramping sumatriptan [From Imitrex] AdvReac migrane Verified 11/18/20 09:19 sumatriptan succinate AdvReac migrane Verified 11/18/20 09:19 [From Imitrex] topiramate [From Topamax] AdvReac "built up Verified 11/18/20 09:19 in system", had to be given something to reverse trazodone AdvReac "built up Verified 11/18/20 09:19 in system", had to be given something to reverse zolpidem tartrate AdvReac "Became Verified 11/18/20 09:19 [From Ambien] violent with no memory" zonisamide [From Zonegran] AdvReac inability Verified 11/18/20 09:19 to eat artificial sweetener AdvReac SEVERE Uncoded 11/18/20 09:19 MIGRAINE HEADACHE Physical Examination - Vital Signs Vital Signs: Vital Signs Temp Pulse Pulse Resp BP BP Pulse Ox 11/16/20 02:00 98.4 F 95 16 143/90 99 11/15/20 22:03 99.2 F 109 H 16 156/99 97 11/15/20 19:57 81 20 149/88 94 L 11/15/20 19:00 80 18 95 11/15/20 18:00 82 18 95 11/15/20 17:00 85 18 146/97 95 11/15/20 16:00 100 18 152/102 95 11/15/20 15:00 104 H 18 95 11/15/20 14:00 104 H 18 150/112 95 11/15/20 13:59 18 11/15/20 12:59 18 11/15/20 11:57 98.5 F 122 H 20 134/97 100 Intake and Output 11/15/20 11/16/20 11/16/20 22:59 06:59 14:59 Intake Total 590 Balance 590 Intake: Oral 590 Other: # Voids 2 Weight 73.482 kg Patient is a middle aged female, who is wearing sunglasses and also covering head with a cloth because of headache. Patient is alert awake oriented to time place and person. Speech and language functions are normal. No aphasia or dysarthria. Attention, concentration and fund of knowledge is adequate. On cranial examination, pupils are round and reacting to light, visual martin are full on confrontation, extraocular muscles are intact with no nystagmus. Face is symmetric, tongue protrudes to the midline. Palatal elevation and sensation normal, hearing and shoulder shrug normal, facial sensation normal. Shoulder shrug normal. On muscle strength testing, there is no pronator drift and the strength is normal in arms and legs distally and proximally. Deep tendon reflexes are 1 at the biceps, 0 at brachioradialis, 0 at the knees, 0 ankles bilaterally and plantars are downgoing. Sensory to touch is equal with no neglect. She has decreased sensation in the hands and feet distally. Cerebellar function showed no ataxia for [id number] testing. No dysdiadochokinesia. Tone and bulk of muscles normal. Gait not checked. On general examination, there is no carotid bruit or murmur, S1-S2 audible. Abdomen is soft nontender. Chest is clear. Peripheral pulses are present. No edema. Results - Laboratory Findings CBC and BMP: 11/15/20 14:43 08 07:15 Abnormal Lab Findings: Abnormal Labs 11/15/20 11/15/20 14:43 14:43 RDW 16.1 H Neutrophils # 7.8 H Potassium 3.0 L BUN <2 L Glucose 111 H Alkaline Phosphatase 160 H Total Protein 6.2 L Assessment and Plan Assessment: * Chronic migraines. Patient came with status migrainosus. Lumbar puncture revealed elevated opening pressure of 42 cm of water. However the procedure was performed in a sitting position. Rule out pseudotumor cerebri. M eningitis ruled out with normal CSF cytology and CSF proteins. * History of Guillain-Cárdenas syndrome. Currently stable. Spinal fluid proteins was negative. Plan: * Patient to follow up with seasonal delivery driver to evaluate for papilledema, to rule out pseudotumor cerebri. If abnormal ophthalmologic examination, then may consider starting Diamox. * May consider repeating lumbar puncture with opening pressure to be checked in the lateral recumbent position. * Patient may be a candidate for Nurtec ODT 75 mg or Ubrelvy 100 mg 4 as stated treatment of migraines. She is ALLERGIC to numerous medications as listed above, including Imitrex, steroids, DHE. * Awaiting MRI of the brain and MRV of head to rule out venous sinus thrombosis. * Discussed with primary team. Addendum: Lumbar puncture viral cultures came back negative. MRI of the brain with and without contrast revealed some minimal white matter increased signal in the cerebral hemispheres in a very diffuse pattern without focal lesion to suggest demyelinating disease. No evidence of cortical infarct. No adverse change compared to old exam. MRV of the head shows no evidence of venous sinus thrombosis. Depakote was discontinued Patient discharged on Diamox 250 mg twice a day. Patient to follow up with seasonal delivery driver to check for visual martin and evaluate for disc edema. Also follow up with her neurologist.
[2020-11-16] MEDS: ATORVASTATIN 40 MG TAB PO SCH (19:46)
[2020-11-16] MEDS: PANTOPRAZOLE 40 MG TABLET PO SCH (19:46)
[2020-11-16 21:28] VITALS: RESP 16; TEMP 98.4
[2020-11-16] MEDS: HYOSCYAMINE SULFATE 0.125 MG TAB PO PRN (21:46)
[2020-11-17] MEDS: VALPROATE SODIUM 250 MG in SODIUM CHLORIDE 0.9% 50 ML IVPB SCH ×3 (00:31→11:51)
--- NOTE | 2020-11-17 02:08 | P.PN ---
Subjective Progress Note Date: 11/16/20 Patient is a 50-year-old female with the history of migraine came in with the complaints of severe headache bitemporal and the posterior radiating to both eyes 12/15.As per the patient patient symptoms are her typical migraine symptoms. Patient denied any nausea vomiting patient has has photophobia as per the patient and was also complaining of neck rigidity. Patient doesn't have any leukocytosis patient doesn't look septic or toxic patient doesn't have any fever patient did have history of meningitis probably aseptic meningitis. Patient underwent LP yesterday CSF is not consistent with meningitis. Patient has an elevated opening pressure but this was done in sitting position because of which that measurement is not appropriate. My suspicion for pseudotumor cerebri is low considering that opening pressure was done and patient was sitting and has symptoms didn't resolve with LP. Patient Requesting for Dilaudid Patient Is ALLERGIC to multiple medications that can be given for migraine R any other headache. Patient has low potassium of 3.0 . Patient is already on emgality for migraine. Patient was started on valproic acid and verapamil for migraine prevention. She denied any recent sick contacts. 11/16/2020 Patient is seen this morning having extreme headache with intense photophobia. Will add Fiorcet. Patient continues to request IV pain medications and discussed with patient and mother at the bedside that IV narcotics are not recommended in migraine headaches. Patient is having nausea but eating meals with no vomiting noted. Appetite is fair. Patient denies any chest pain or shortness of breath. Patient applies shaded lens each time someone enters the room. Patient is scheduled to have MRI of the brain which was done as routine and awaiting radiology read. Review of systems: Constitutional: No reports of fatigue, fever, or chills, reports continued migraine Cardiovascular: No reports of chest pain or palpitations Respiratory: No reports of shortness of breath or cough GI: reports intermittent nausea, no vomiting, or diarrhea : No reports of dysuria or retention Neurovascular: Reports generalized weakness and continued light sensitivity All medications have been reviewed PHYSICAL EXAMINATION: GENERAL: The patient is alert and oriented x3, not in any acute distress. Well developed, well nourished. HEENT: Pupils are round and equally reacting to light. EOMI. No scleral icterus. No conjunctival pallor. Normocephalic, atraumatic. No pharyngeal erythema. No thyromegaly. CARDIOVASCULAR: S1 and S2 present. No murmurs, rubs, or gallops. PULMONARY: Chest is clear to auscultation, no wheezing or crackles. ABDOMEN: Soft, nontender, nondistended, normoactive bowel sounds. No palpable organomegaly. MUSCULOSKELETAL: No joint swelling or deformity. EXTREMITIES: No cyanosis, clubbing, or pedal edema. NEUROLOGICAL: Gross neurological examination did not reveal any focal deficits. SKIN: No rashes. Assessment and plan: -Intractable headache: Patient continues to have migraine. CSF thus far not showing no growth, blood cultures negative. Ruled out meningitis. Patient maintained on valproic acid and verapamil continue with the her home migraine medications. Avoid opiates. Patient has multiple ER visits for multiple other symptoms. -Possibility of psychosomatic disorder on narcotic seeking behavior. -Hyperlipidemia -Hypertension -Seizure disorder -Hypokalemia potassium was replaced, will repeat am labs -DVT prophylaxis: Early ambulation Plan: Patient has been receiving norco for pain with no relief and continues to have 10/10 pain in head. Fiorcet added. Patient continues to request IV dilaudid. Patient again, informed of avoiding IV narcotics as those are habit forming and not indicated in those with migraine. Neurology following and have ordered MRI of the brain given inconclusive LP. Patient on valproic acid and verapamil along with vancomycin. Vancomycin will be discontinued. Patient will need outpatient follow up with her neurologist out of [facility] for further evaluation. MRI results pending and if within normal limits, patient will be discharged. Objective - Vital Signs Vital signs: Vital Signs Temp 98.4 F 11/16/20 02:00 Pulse 95 11/16/20 02:00 Resp 16 11/16/20 02:00 BP 143/90 11/16/20 02:00 Pulse Ox 99 11/16/20 02:00 Intake & Output 11/15/20 11/16/20 11/16/20 18:59 06:59 18:59 Intake Total 590 Balance 590 Weight 73.482 kg 73.482 kg Intake: Oral 590 Other: # Voids 2 - Labs CBC & Chem 7: 11/15/20 14:43 11/16/20 06:00 Labs: Abnormal Lab Results - Last 24 Hours (Table) 11/15/20 11/15/20 Range/Units 14:43 14:43 RDW 16.1 H (11.5-15.5) % Neutrophils # 7.8 H (1.3-7.7) k/uL Potassium 3.0 L (3.5-5.1) mmol/L BUN <2 L (7-17) mg/dL Glucose 111 H (74-99) mg/dL Alkaline Phosphatase 160 H (38-126) U/L Total Protein 6.2 L (6.3-8.2) g/dL Microbiology - Last 24 Hours (Table) 11/15/20 17:49 CSF Gram Stain - Preliminary Cerebral Spinal Fluid CSF Culture - Preliminary
--- NOTE | 2020-11-17 03:06 | MR ---
EXAMINATION TYPE: MR venography head wo con DATE OF EXAM: 11/16/2020 COMPARISON: None HISTORY: Headache, Pseudotumor cerebri, rule out sinus thrombus,elevated ICP MR venographic images were obtained of the intracerebral venous circulation. There is normal venous flow patterns seen in the superior sagittal sinus and the transverse sinus. Th ere is normal flow seen in the sigmoid sinus. Cerebral vein appears patent. There is no evidence of a filling defect. IMPRESSION: No evidence of sinus vein thrombosis. Negative exam.
--- NOTE | 2020-11-17 03:27 | MR ---
EXAMINATION TYPE: MR brain wo/w con DATE OF EXAM: 11/16/2020 COMPARISON: HISTORY: Headache, Pseudotumor cerebri, rule out sinus thrombus CONTRAST: Standard multiplanar, multisequence MRI departmental protocol utilizing 7 mL intravenous Gadavist letitia olinium contrast. Diffusion images show no evidence of an acute infarct. The ventricles and sulci appear normal. There is no mass effect nor midline shift. There is no sign of intracranial hemorrhage. Johnson-white matter s tructures have overall fairly normal signal pattern. There is some minimal increased white matter dif fuse T2 signal in the parietal lobes bilaterally. The brainstem appears intact. Cerebellum appears in tact. There is no evidence of orbital mass. The contrast images show normal enhancement of the venous sinuses. There is no pathologic enhancement . The sella turcica appears normal. Pituitary stalk is in the midline. Optic chiasm appears normal. IMPRESSION: There is some minimal white matter increased signal in the cerebral hemispheres in a very diffuse pat tern without focal lesion to suggest demyelinating disease. No evidence of cortical infarct. No adver se change compared to old exam.
[2020-11-17] MEDS: BUTALB/APAP/CAFF 50-325-40MG TAB PO PRN ×3 (05:30→14:41)
[2020-11-17] MEDS: HYOSCYAMINE SULFATE 0.125 MG TAB PO PRN ×2 (05:31→10:14)
[2020-11-17 07:49] LABS: African American GFR (CKD) >90 (>60 ml/min/1.73 sqM); Anion Gap 5 mmol/L; Blood Urea Nitrogen <2 mg/dL (7-17); Calcium 8.5 mg/dL (8.4-10.2); Carbon Dioxide 28 mmol/L (22-30); Chloride 105 mmol/L (98-107); Glucose 121 mg/dL (74-99); Non-African American GFR(CKD) >90 (>60 ml/min/1.73 sqM); Potassium 3.5 mmol/L (3.5-5.1); Sodium 138 mmol/L (137-145)
[2020-11-17] MEDS ORDERED: VANCOMYCIN TROUGH DUE 1 EACH MISC MISCELLANE ONE (08:00)
[2020-11-17] MEDS: LACOSAMIDE 50 MG TABLET PO SCH (08:10)
[2020-11-17] MEDS: amLODIPine 5 MG TAB PO SCH (08:11)
[2020-11-17] MEDS: HYDROcodone/APAP 7.5-325MG 1 EACH TAB PO PRN (08:33)
[2020-11-17] MEDS: hydrOXYzine pamoate 25 MG CAP PO PRN (11:51)
[2020-11-17 12:33] VITALS: BP 120/83; PULSE 82
--- NOTE | 2020-11-17 15:30 | P.DS ---
Providers Date of admission: 11/15/20 16:37 Expected date of discharge: 11/17/20 Attending physician: Justin Rodriguez Consults: 11/15/20 16:30 Consult to Anesthesia Stat Consulting Provider: Anesthesia,Services Consult Reason/Comments: Lumbar puncture 11/15/20 20:26 Consult Physician Urgent Consulting Provider: Hipolito Mancia Consult Reason/Comments: Rule out meningitis, migraines Do you want consulting provider notified?: Already Contacted Primary care physician: José Reece Hospital Course: Final diagnosis -Intractable headache: Patient continues to have migraine. CSF showing no growth, blood cultures negative. Ruled out meningitis. -Possibility of psychosomatic disorder on narcotic seeking behavior. -Hyperlipidemia -Hypertension -Seizure disorder -Hypokalemia , improved -DVT prophylaxis -Full code Discharge disposition Patient is being discharged in a stable condition with guarded prognosis to home. Patient will follow-up with Dr. Reece in the outpatient setting upon discharge. Patient is to also follow-up with her neurologist out of [facility] and referral placed for ophthalmology Dr. Echevarria. Total time taken is greater than 35 minutes. Hospital course Patient is a 50-year-old female with the history of migraine came in with the complaints of severe headache bitemporal and the posterior radiating to both eyes 12/15.As per the patient patient symptoms are her typical migraine symptoms. Patient denied any nausea vomiting patient has has photophobia as per the patient and was also complaining of neck rigidity. Patient doesn't have any leukocytosis patient doesn't look septic or toxic patient doesn't have any fever patient did have history of meningitis probably aseptic meningitis. Patient underwent LP yesterday CSF is not consistent with meningitis. Patient has an elevated opening pressure but this was done in sitting position because of which that measurement is not appropriate. My suspicion for pseudotumor cerebri is low considering that opening pressure was done and patient was sitting and has symptoms didn't resolve with LP. Patient Requesting for Dilaudid Patient Is ALLERGIC to multiple medications that can be given for migraine R any other headache. Patient has low potassium of 3.0 . Patient is already on emgality for migraine. Patient was started on valproic acid and verapamil for migraine prevention. She denied any recent sick contacts. 11/16/2020 Patient is seen this morning having extreme headache with intense photophobia. Will add Fiorcet. Patient continues to request IV pain medications and discussed with patient and mother at the bedside that IV narcotics are not recommended in migraine headaches. Patient is having nausea but eating meals with no vomiting noted. Appetite is fair. Patient denies any chest pain or shortness of breath. Patient applies shaded lens each time someone enters the room. Patient is scheduled to have MRI of the brain which was done as routine and awaiting radiology read. 11/17/2020 Patient is seen in follow-up this morning with no acute overnight issues. Patient continues to have migraine and will continue on verapamil and continue with home medication regimen. Patient was seen and evaluated by neurology and underwent LP which was negative for meningitis and did have elevated opening pressures although testing was done while patient was sitting up and discuss with neurology about being indeterminate. Patient to continue with verapamil along with home medications and needs follow-up with her neurologist out of [facility] this week. Patient will be given Percocet as well on discharge. Patient encouraged and instructed to follow-up with primary care provider. Patient underwent MRI of the brain which was negative for sinus vein thrombosis and brain showed some minimal white matter increased signal in the cerebral hemispheres in a very diffuse pattern without focal lesion to suggest demyelinating disease with no evidence of cortical infarct and no adverse change from previous MRI. Patient will also be recommended to follow-up with ophthalmology for further testing. Currently no reports of chest pain, shortness of breath, or palpitations. Patient is afebrile. No reports of nausea or vomiting and patient is tolerating diet. Patient will be discharged home today. Guarded prognosis due to multiple ER visits and hospitalizations. GENERAL: The patient is alert and oriented x3, not in any acute distress. Well developed, well nourished. HEENT: Pupils are round and equally reacting to light. EOMI. No scleral icterus. No conjunctival pallor. Normocephalic, atraumatic. No pharyngeal erythema. No thyromegaly. CARDIOVASCULAR: S1 and S2 present. No murmurs, rubs, or gallops. PULMONARY: Chest is clear to auscultation, no wheezing or crackles. ABDOMEN: Soft, nontender, nondistended, normoactive bowel sounds. No palpable organomegaly. MUSCULOSKELETAL: No joint swelling or deformity. EXTREMITIES: No cyanosis, clubbing, or pedal edema. NEUROLOGICAL: Gross neurological examination did not reveal any focal deficits. SKIN: No rashes. On exam vital signs are stable. Cardio S1, S2 are muffled. Respiratory system shows diminished breath sounds at the bases with no wheezing or rhonchi noted. Abdomen is soft and nontender. Nervous system shows no focal deficits. Please refer to medication reconciliation sheet for a list of medications. Patient Condition at Discharge: Stable Plan - Discharge Summary New Discharge Prescriptions: New Butalb/APAP/Caff 50-325-40Mg [Fioricet 50-325-40] 1 each PO Q4HR PRN #10 tab PRN Reason: Headache Verapamil Sr [Isoptin Sr] 180 mg PO DAILY 30 Days #30 tab Continue Atorvastatin [Lipitor] 40 mg PO HS Lacosamide [Vimpat] 100 mg PO BID amLODIPine [Norvasc] 5 mg PO DAILY Galcanezumab-Gnlm [Emgality Pen] 120 mg SQ Q30D hydrOXYzine pamoate [Vistaril] 25 mg PO TID PRN PRN Reason: Anxiety Hyoscyamine Sulfate [Levsin] 0.125 mg PO Q4H HYDROcodone/APAP 7.5-325MG [[place] 7.5-325] 1 tab PO TID PRN #12 tab PRN Reason: Pain Omeprazole 40 mg PO HS Albuterol Inhaler [Ventolin Hfa Inhaler] 1 - 2 puff INHALATION RT-Q6H PRN PRN Reason: Shortness Of Breath Discharge Medication List Atorvastatin [Lipitor] 40 mg PO HS 04/02/17 [History] Lacosamide [Vimpat] 100 mg PO BID 06/04/17 [History] Galcanezumab-Gnlm [Emgality Pen] 120 mg SQ Q30D 04/28/20 [History] amLODIPine [Norvasc] 5 mg PO DAILY 04/28/20 [History] hydrOXYzine pamoate [Vistaril] 25 mg PO TID PRN 09/06/20 [History] Albuterol Inhaler [Ventolin Hfa Inhaler] 1 - 2 puff INHALATION RT-Q6H PRN 11/15/20 [History] Hyoscyamine Sulfate [Levsin] 0.125 mg PO Q4H 11/15/20 [History] Omeprazole 40 mg PO HS 11/15/20 [History] Butalb/APAP/Caff 50-325-40Mg [Fioricet 50-325-40] 1 each PO Q4HR PRN #10 tab 11/17/20 [Rx] HYDROcodone/APAP 7.5-325MG [[place] 7.5-325] 1 tab PO TID PRN #12 tab 11/17/20 [Rx] Verapamil Sr [Isoptin Sr] 180 mg PO DAILY 30 Days #30 tab 11/17/20 [Rx] Follow up Appointment(s)/Referral(s): José Reece MD [Primary Care Provider] - 11/20/20 1:40 pm (FridayNovember 20 at 1:40) Tree Echevarria MD [STAFF PHYSICIAN] - 1 Week (call for an appoitment in AM, script given as referral from neurology) Patient Instructions/Handouts: Butalbital/Aspirin/Caffeine/Codeine (By mouth), Verapamil (By mouth), Hydrocodone/Acetaminophen (By mouth), Migraine Headache (GEN) Activity/Diet/Wound Care/Special Instructions: Please contact the following resources to inquire about a ramp: 1. [employer] [place] [facility] [phone] 2. [employer]: [phone] Activity Limited until follow-up follow up With primary care provider upon discharge follow up with neurologist outpatient follow up with field support rep outpatient Continue current diet continue medications as prescribed Discharge Disposition: HOME SELF-CARE
[2020-12-05] MEDS ORDERED: Galcanezumab-Gnlm [Emgality Pen] 120 MG/ML Pen.Injctr SQ SCH (09:00)
== END 2020-11-17 15:05 | disposition home or self-care (01) ==
LOC: EC 11:55 → 5NMEDONC 16:37 → INTOOBSV 16:37 → 5NMEDONC 21:53 → UNDODISIN 11-17 15:05
PROVIDERS: ADMIT Internal Medicine; ATTEND Internal Medicine
PROC: 009U3ZX Drainage of Spinal Canal, Percutaneous Approach, Diagnostic (ICD-10-PCS; principal; 2020-11-15)
DX: G43.911 Migraine, unspecified, intractable, with status migrainosus (principal); E78.5 Hyperlipidemia, unspecified; I10 Essential (primary) hypertension; G40.909 Epilepsy, unspecified, not intractable, without status epilepticus; E87.6 Hypokalemia; G89.29 Other chronic pain; M54.9 Dorsalgia, unspecified; F43.10 Post-traumatic stress disorder, unspecified; F31.9 Bipolar disorder, unspecified; F41.0 Panic disorder [episodic paroxysmal anxiety]; F40.240 Claustrophobia; F17.210 Nicotine dependence, cigarettes, uncomplicated; E66.9 Obesity, unspecified; Z68.28 Body mass index [BMI] 28.0-28.9, adult; G61.0 Guillain-Barre syndrome; Z86.61 Personal history of infections of the central nervous system; Z79.899 Other long term (current) drug therapy; Z88.5 Allergy status to narcotic agent; Z90.49 Acquired absence of other specified parts of digestive tract; Z90.710 Acquired absence of both cervix and uterus; Z88.0 Allergy status to penicillin; Z88.8 Allergy status to other drugs, medicaments and biological substances; Z91.02 Food additives allergy status; Z91.040 Latex allergy status; Z88.1 Allergy status to other antibiotic agents; Z88.6 Allergy status to analgesic agent; Z80.9 Family history of malignant neoplasm, unspecified; Z81.8 Family history of other mental and behavioral disorders; Z83.3 Family history of diabetes mellitus; Z82.49 Family history of ischemic heart disease and other diseases of the circulatory system; Z83.79 Family history of other diseases of the digestive system; Z83.49 Family history of other endocrine, nutritional and metabolic diseases; Z83.438 Family history of other disorder of lipoprotein metabolism and other lipidemia
CPT/HCPCS: 96366 ×3; 96375 ×3; 96376; 62270; 96361; 96365; 96367; 99285; 36415; 87496; 87498; 87529; 87798 ×2; 84157; 80053; 80048; 82945; 82565; 83605; 83735; 85025; 80202; 89050; 87040; 87252; 87070; 87205; 71045; 70450; 70544; 70553; G0378 ×3; J3370 ×2; J2060; J1200; J2405; J0696; J2001; J1642; J1170; A9585

== ENCOUNTER 2020-11-18 09:14 | Emergency (ER) | payer OTHER ==
[2020-11-18 09:19] VITALS: BP 122/88; PULSE 100; RESP 17; TEMP 98.4
[2020-11-18] MEDS ORDERED: ONDANSETRON 4 MG/2 ML VIAL IVP STA (09:31)
[2020-11-18] MEDS ORDERED: HYDROmorphone 0.5 MG/0.5 ML SYRINGE IVP STA (09:31)
[2020-11-18] MEDS ORDERED: diphenhydrAMINE 50 MG/ML 1 ML VIAL IVP STA (09:31)
--- NOTE | 2020-11-18 09:31 | ED ---
General Adult HPI - General Chief complaint: Headache Stated complaint: headache Time Seen by Provider: 11/18/20 09:21 Source: patient Mode of arrival: wheelchair Limitations: no limitations - History of Present Illness Initial comments: Dictation was produced using [employer] dictation software. please excuse any grammatical, word or spelling errors. Chief Complaint: 50-year-old female well-known to the emergency department for headaches presents to emergency department for headache History of Present Illness: Patient is a 50-year-old female she is well-known to the emergency department. This is her 28th visit here in emergency department the last 7 months. Patient is here frequently for headache. Patient states she's had a headache for the last 18 hours. She states that her headache feels typical for her usual headaches. She states that her headache is holo temporal and sharp in nature. She complains of some mild nausea. Patient reports that she was recently admitted to the hospital where extensive workup was performed. Patient denies any numbness tingling paresthesias to the arms or legs. She states that she does have follow-up with her headache specialist at [facility]. The ROS documented in this emergency department record has been reviewed and confirmed by me. Those systems with pertinent positive or negative responses have been documented in the HPI. All other systems are other negative and/or noncontributory. PHYSICAL EXAM: General Impression: Alert and oriented x3, not in acute distress HEENT: Normocephalic atraumatic, extra-ocular movements intact, pupils equal and reactive to light bilaterally, mucous membranes moist. Cardiovascular: Heart regular rate and rhythm Chest: Able to complete full sentences, no retractions, no tachypnea Abdomen: abdomen soft, non-tender, non-distended, no organomegaly Musculoskeletal: Pulses present and equal in all extremities, no peripheral edema Motor: no focal deficits noted Neurological: CN II-XII grossly intact, no focal motor or sensory deficits noted Skin: Intact with no visualized rashes Psych: Normal affect and mood ED course: 50-year-old male presents to the emergency department for acute on chronic headaches. Vital signs upon arrival are within acceptable limits. I'm familiar with patient per she appears to be at baseline. Chart review was performed. Patient was admitted to the hospital 3 days ago where extensive workup was performed including MRI, MRV and lumbar puncture. Evaluation was unremarkable. Patient given analgesics. She is urged to follow-up with headache specialist at [facility]. - Related Data Home Medications Medication Instructions Recorded Confirmed Atorvastatin [Lipitor] 40 mg PO HS 04/02/17 11/15/20 Lacosamide [Vimpat] 100 mg PO BID 06/04/17 11/15/20 Galcanezumab-Gnlm [Emgality Pen] 120 mg SQ Q30D 04/28/20 11/15/20 amLODIPine [Norvasc] 5 mg PO DAILY 04/28/20 11/15/20 hydrOXYzine pamoate [Vistaril] 25 mg PO TID PRN 09/06/20 11/15/20 Albuterol Inhaler [Ventolin Hfa 1 - 2 puff INHALATION RT-Q6H PRN 11/15/20 0 11/15/20 Inhaler] Hyoscyamine Sulfate [Levsin] 0.125 mg PO Q4H 11/15/20 11/15/20 Omeprazole 40 mg PO HS 11/15/20 11/15/20 Previous Rx's Medication Instructions Recorded Butalb/APAP/Caff 50-325-40Mg 1 each PO Q4HR PRN #10 tab 11/17/20 [Fioricet 50-325-40] HYDROcodone/APAP 7.5-325MG [[place] 1 tab PO TID PRN #12 tab 11/17/20 7.5-325] Verapamil Sr [Isoptin Sr] 180 mg PO DAILY 30 Days #30 tab 11/17/20 Allergies Allergy/AdvReac Type Severity Reaction Status Date / Time dihydroergotamine Allergy Unknown Unknown Verified 11/18/20 09:19 [From Migranal] gabapentin [From Neurontin] Allergy Itching/Swe Verified 11/18/20 09:19 lling latex Allergy Anaphylaxis Verified 11/18/20 09:19 naproxen [From Naprosyn] Allergy Anaphylaxis Verified 11/18/20 09:19 Penicillins Allergy Anaphylaxis Verified 11/18/20 09:19 prednisone Allergy Swelling Verified 11/18/20 09:19 quetiapine fumarate Allergy Itching, Verified 11/18/20 09:19 [From Seroquel] leg cramps rofecoxib [From Vioxx] Allergy Itching, Verified 11/18/20 09:19 leg cramps terfenadine [From Seldane] Allergy Rash/Hives Verified 11/18/20 09:19 tramadol Allergy Nausea & Verified 11/18/20 09:19 Vomiting/LEG CRAMPS/HEART FLUTTERS calcium carbonate [From DHEA] AdvReac Chest Pain Verified 11/18/20 09:19 calcium phosphate,dibasic AdvReac Chest Pain Verified 11/18/20 09:19 [From DHEA] clindamycin AdvReac muscle Verified 11/18/20 09:19 cramps clonidine AdvReac fast Verified 11/18/20 09:19 heartbeat, migraine dextromethorphan HBr AdvReac face/neck Verified 11/18/20 09:19 [From NyQuil] flushing diazepam [From Valium] AdvReac Nausea & Verified 11/18/20 09:19 Vomiting divalproex sodium AdvReac Nausea & Verified 11/18/20 09:19 [From Depakote] Vomiting doxylamine [From NyQuil] AdvReac face "beet Verified 11/18/20 09:19 red", elevated temp. ibuprofen [From Motrin] AdvReac abdominal Verified 11/18/20 09:19 & muscle cramps indomethacin [From Indocin] AdvReac Abdominal Verified 11/18/20 09:19 Pain,N/V ketorolac tromethamine AdvReac "built up Verified 11/18/20 09:19 [From Toradol] in system", had to be given something to reverse lorazepam [From Ativan] AdvReac Nausea & Verified 11/18/20 09:19 Vomiting memantine [From Namenda] AdvReac Itching Verified 11/18/20 09:19 metoclopramide HCl AdvReac muscle Verified 11/18/20 09:19 [From Reglan] cramps nortriptyline [From Pamelor] AdvReac Chest Pain Verified 11/18/20 09:19 prasterone (DHEA) [From DHEA] AdvReac Chest Pain Verified 11/18/20 09:19 prochlorperazine AdvReac leg Verified 11/18/20 09:19 [From Compazine] cramping propranolol AdvReac Chest Pain Verified 11/18/20 09:19 pseudoephedrine HCl AdvReac face "beet Verified 11/18/20 09:19 [From NyQuil] red", elevated temp. quetiapine [From Seroquel] AdvReac leg Verified 11/18/20 09:19 cramping sumatriptan [From Imitrex] AdvReac migrane Verified 11/18/20 09:19 sumatriptan succinate AdvReac migrane Verified 11/18/20 09:19 [From Imitrex] topiramate [From Topamax] AdvReac "built up Verified 11/18/20 09:19 in system", had to be given something to reverse trazodone AdvReac "built up Verified 11/18/20 09:19 in system", had to be given something to reverse zolpidem tartrate AdvReac "Became Verified 11/18/20 09:19 [From Ambien] violent with no memory" zonisamide [From Zonegran] AdvReac inability Verified 11/18/20 09:19 to eat artificial sweetener AdvReac SEVERE Uncoded 11/18/20 09:19 MIGRAINE HEADACHE Review of Systems ROS Statement: Those systems with pertinent positive or pertinent negative responses have been documented in the HPI. ROS Other: All systems not noted in ROS Statement are negative. Past Medical History Past Medical History: Hyperlipidemia, Hypertension, Seizure Disorder Additional Past Medical History / Comment(s): Migraines, viral meningitis x3 as a child, 1995, 2000, chronic back pain, nerve blocks 08/2016 and 12/2016. Last seizure 10/10/2020, "ABSENT SEIZURES. HX TACHYCARDIA, GBS/CIPD, PTSD. History of Any Multi-Drug Resistant Organisms: None Reported Past Surgical History: Appendectomy, Section, Cholecystectomy, Hernia Repair, Hysterectomy, Orthopedic Surgery, Tonsillectomy, Tubal Ligation Additional Past Surgical History / Comment(s): Hiatal Hernia, umbilical hernia repair, left rotator cuff repair, bilateral knee scopes, pain clinic procedures- occipital nerve block. abd exploratory sx(endometreosis), 3 abd scopes 1981, 1989, 1991), lumbar puncture. EGD. nerve biopsy, salvalry gland biospy Past Anesthesia/Blood Transfusion Reactions: No Reported Reaction Additional Past Anesthesia/Blood Transfusion Reaction / Comment(s): Claustrophobic Past Psychological History: Anxiety, Bipolar, Panic Disorder, PTSD Smoking Status: Current every day smoker Past Alcohol Use History: None Reported Past Drug Use History: None Reported - Past Family History Mother Family Medical History: Cancer, Dementia, Diabetes Mellitus, GERD/Reflux, Hyperlipidemia, Hypertension, Thyroid Disorder Additional Family Medical History / Comment(s): Quad CABG, cardiac stents, toes ampuated. Father History Unknown: Yes Family Medical History: No Reported History General Exam Limitations: no limitations Course Vital Signs 11/18/20 09:15 Temperature 98.4 F Pulse Rate 100 Respiratory 17 Rate Blood Pressure 122/88 O2 Sat by Pulse 98 Oximetry Disposition Clinical Impression: At risk for abuse of opiates, Headache Disposition: HOME SELF-CARE Condition: Good Instructions (If sedation given, give patient instructions): Narcotic Use Disorder (ED) Is patient prescribed a controlled substance at d/c from ED?: No Referrals: José Reece MD [Primary Care Provider] - 1-2 days
[2020-11-18] MEDS ORDERED: diphenhydrAMINE 50 MG/ML 1 ML VIAL IM STA (09:34)
[2020-11-18] MEDS ORDERED: ONDANSETRON 4 MG/2 ML VIAL IM STA (09:35)
[2020-11-18] MEDS ORDERED: HYDROmorphone 0.5 MG/0.5 ML SYRINGE IM STA (09:35)
== END 2020-11-18 09:51 | disposition home or self-care (01) ==
LOC: EC 09:14
DX: R51.9 Headache, unspecified (principal); F11.10 Opioid abuse, uncomplicated; E78.5 Hyperlipidemia, unspecified; I10 Essential (primary) hypertension; F41.9 Anxiety disorder, unspecified; F31.9 Bipolar disorder, unspecified; F43.12 Post-traumatic stress disorder, chronic; F17.200 Nicotine dependence, unspecified, uncomplicated; Z91.040 Latex allergy status; Z88.0 Allergy status to penicillin; Z88.1 Allergy status to other antibiotic agents; Z88.6 Allergy status to analgesic agent; Z90.49 Acquired absence of other specified parts of digestive tract; Z90.710 Acquired absence of both cervix and uterus; Z90.89 Acquired absence of other organs; Z98.51 Tubal ligation status
CPT/HCPCS: 99283; 96372 ×3; J1200; J2405; J1170

== ENCOUNTER 2020-12-08 15:52 | Emergency (ER) | payer OTHER ==
[2020-12-08 17:20] VITALS: BP 115/80; PULSE 104; RESP 16; TEMP 98.2
[2020-12-08] MEDS ORDERED: ONDANSETRON 4 MG/2 ML VIAL IVP STA (19:40)
[2020-12-08] MEDS ORDERED: HYDROmorphone 1 MG/ML 1 ML SYRINGE IVP STA ×2 (19:40→22:13)
[2020-12-08] MEDS ORDERED: SODIUM CHLORIDE 0.9% 500 ML 500 ML IV STA (19:40)
[2020-12-08] MEDS ORDERED: diphenhydrAMINE 50 MG/ML 1 ML VIAL IVP STA (19:40)
--- NOTE | 2020-12-08 22:00 | ED ---
Headache HPI - General Chief Complaint: Headache Stated Complaint: Migraine Time Seen by Provider: 12/08/20 18:42 Source: RN notes reviewed Mode of arrival: wheelchair Limitations: no limitations - History of Present Illness Initial Comments: Patient is a 50-year-old female that presents to the emergency department complaining of a migraine. She notes that she's been here several times for same issue. She notes that she usually gets Dilaudid Benadryl Zofran and some fluids before going home. She notes this is one of her typical migraines with no new symptoms. She denied any chest pain shortness of breath nausea vomiting diarrhea constipation fever fatigue chills. - Related Data Home Medications Medication Instructions Recorded Confirmed Atorvastatin [Lipitor] 40 mg PO HS 04/02/17 11/15/20 Lacosamide [Vimpat] 100 mg PO BID 06/04/17 11/15/20 Galcanezumab-Gnlm [Emgality Pen] 120 mg SQ Q30D 04/28/20 11/15/20 amLODIPine [Norvasc] 5 mg PO DAILY 04/28/20 11/15/20 hydrOXYzine pamoate [Vistaril] 25 mg PO TID PRN 09/06/20 11/15/20 Albuterol Inhaler [Ventolin Hfa 1 - 2 puff INHALATION RT-Q6H PRN 11/15/20 11/15/20 Inhaler] Hyoscyamine Sulfate [Levsin] 0.125 mg PO Q4H 11/15/20 11/15/20 Omeprazole 40 mg PO HS 11/15/20 11/15/20 Previous Rx's Medication Instructions Recorded Butalb/APAP/Caff 50-325-40Mg 1 each PO Q4HR PRN #10 tab 11/17/20 [Fioricet 50-325-40] HYDROcodone/APAP 7.5-325MG [[place] 1 tab PO TID PRN #12 tab 11/17/20 7.5-325] Verapamil Sr [Isoptin Sr] 180 mg PO DAILY 30 Days #30 tab 11/17/20 Allergies Allergy/AdvReac Type Severity Reaction Status Date / Time dihydroergotamine Allergy Unknown Unknown Verified 12/08/20 17:20 [From Migranal] gabapentin [From Neurontin] Allergy Itching/Swe Verified 12/08/20 17:20 lling latex Allergy Anaphylaxis Verified 12/08/20 17:20 lidocaine Allergy Unknown Verified 12/08/20 17:20 naproxen [From Naprosyn] Allergy Anaphylaxis Verified 12/08/20 17:20 Penicillins Allergy Anaphylaxis Verified 12/08/20 17:20 prednisone Allergy Swelling Verified 12/08/20 17:20 quetiapine fumarate Allergy Itching, Verified 12/08/20 17:20 [From Seroquel] leg cramps rofecoxib [From Vioxx] Allergy Itching, Verified 12/08/20 17:20 leg cramps terfenadine [From Seldane] Allergy Rash/Hives Verified 12/08/20 17:20 tramadol Allergy Nausea & Verified 12/08/20 17:20 Vomiting/LEG CRAMPS/HEART FLUTTERS calcium carbonate [From DHEA] AdvReac Chest Pain Verified 12/08/20 17:20 calcium phosphate,dibasic AdvReac Chest Pain Verified 12/08/20 17:20 [From DHEA] clindamycin AdvReac muscle Verified 12/08/20 17:20 cramps clonidine AdvReac fast Verified 12/08/20 17:20 heartbeat, migraine dextromethorphan HBr AdvReac face/neck Verified 12/08/20 17:20 [From NyQuil] flushing diazepam [From Valium] AdvReac Nausea & Verified 12/08/20 17:20 Vomiting divalproex sodium AdvReac Nausea & Verified 12/08/20 17:20 [From Depakote] Vomiting doxylamine [From NyQuil] AdvReac face "beet Verified 12/08/20 17:20 red", elevated temp. ibuprofen [From Motrin] AdvReac abdominal Verified 12/08/20 17:20 & muscle cramps indomethacin [From Indocin] AdvReac Abdominal Verified 12/08/20 17:20 Pain,N/V ketorolac tromethamine AdvReac "built up Verified 12/08/20 17:20 [From Toradol] in system", had to be given something to reverse lorazepam [From Ativan] AdvReac Nausea & Verified 12/08/20 17:20 Vomiting memantine [From Namenda] AdvReac Itching Verified 12/08/20 17:20 metoclopramide HCl AdvReac muscle Verified 12/08/20 17:20 [From Reglan] cramps nortriptyline [From Pamelor] AdvReac Chest Pain Verified 12/08/20 17:20 prasterone (DHEA) [From DHEA] AdvReac Chest Pain Verified 12/08/20 17:20 prochlorperazine AdvReac leg Verified 12/08/20 17:20 [From Compazine] cramping propranolol AdvReac Chest Pain Verified 12/08/20 17:20 pseudoephedrine HCl AdvReac face "beet Verified 12/08/20 17:20 [From NyQuil] red", elevated temp. quetiapine [From Seroquel] AdvReac leg Verified 12/08/20 17:20 cramping sumatriptan [From Imitrex] AdvReac migrane Verified 12/08/20 17:20 sumatriptan succinate AdvReac migrane Verified 12/08/20 17:20 [From Imitrex] topiramate [From Topamax] AdvReac "built up Verified 12/08/20 17:20 in system", had to be given something to reverse trazodone AdvReac "built up Verified 12/08/20 17:20 in system", had to be given something to reverse zolpidem tartrate AdvReac "Became Verified 12/08/20 17:20 [From Ambien] violent with no memory" zonisamide [From Zonegran] AdvReac inability Verified 12/08/20 17:20 to eat artificial sweetener AdvReac SEVERE Uncoded 12/08/20 17:20 MIGRAINE HEADACHE Review of Systems ROS Statement: Those systems with pertinent positive or pertinent negative responses have been documented in the HPI. ROS Other: All systems not noted in ROS Statement are negative. Past Medical History Past Medical History: Hyperlipidemia, Hypertension, Seizure Disorder Additional Past Medical History / Comment(s): Migraines, viral meningitis x3 as a child, 1995, 2000, chronic back pain, nerve blocks 08/2016 and 12/2016. Last seizure 10/10/2020, "ABSENT SEIZURES. HX TACHYCARDIA, GBS/CIPD, PTSD. History of Any Multi-Drug Resistant Organisms: None Reported Past Surgical History: Appendectomy, Section, Cholecystectomy, Hernia Repair, Hysterectomy, Orthopedic Surgery, Tonsillectomy, Tubal Ligation Additional Past Surgical History / Comment(s): Hiatal Hernia, umbilical hernia repair, left rotator cuff repair, bilateral knee scopes, pain clinic procedures- occipital nerve block. abd exploratory sx(endometreosis), 3 abd scopes 1981, 1989, 1991), lumbar puncture. EGD. nerve biopsy, salvalry gland biospy Past Anesthesia/Blood Transfusion Reactions: No Reported Reaction Additional Past Anesthesia/Blood Transfusion Reaction / Comment(s): Claustrophobic Past Psychological History: Anxiety, Bipolar, Panic Disorder, PTSD Smoking Status: Current every day smoker Past Alcohol Use History: None Reported Past Drug Use History: None Reported - Past Family History Mother Family Medical History: Cancer, Dementia, Diabetes Mellitus, GERD/Reflux, Hyperlipidemia, Hypertension, Thyroid Disorder Additional Family Medical History / Comment(s): Quad CABG, cardiac stents, toes ampuated. Father History Unknown: Yes Family Medical History: No Reported History General Exam Limitations: no limitations General appearance: alert, in no apparent distress Head exam: Present: atraumatic, normocephalic, normal inspection Eye exam: Present: normal appearance, PERRL, EOMI. Absent: scleral icterus, conjunctival injection, periorbital swelling Neck exam: Present: normal inspection Respiratory exam: Present: normal lung sounds bilaterally. Absent: respiratory distress, wheezes, rales, rhonchi, stridor Cardiovascular Exam: Present: regular rate, normal rhythm, normal heart sounds. Absent: systolic murmur, diastolic murmur, rubs, gallop, clicks GI/Abdominal exam: Present: soft, normal bowel sounds. Absent: distended, tenderness, guarding, rebound, rigid Extremities exam: Present: normal inspection, full ROM, normal capillary refill. Absent: tenderness, pedal edema, joint swelling, calf tenderness Neurological exam: Present: alert, oriented X3 Psychiatric exam: Present: normal affect, normal mood Skin exam: Present: warm, dry, intact, normal color. Absent: rash Course Vital Signs 12/08/20 17:18 Temperature 98.2 F Pulse Rate 104 H Respiratory 16 Rate Blood Pressure 115/80 O2 Sat by Pulse 98 Oximetry Medical Decision Making - Medical Decision Making 50-year-old female complaining of migraine type headache. 1 mg of Dilaudid, 59 g Benadryl, 4 mg Zofran, 500 mL of normal saline ordered. Patient states that she is feeling better vertigo home. Case discussed with Dr. Bergeron, patient discharge home. Disposition Clinical Impression: Headache, Migraine Disposition: HOME SELF-CARE Condition: Stable Instructions (If sedation given, give patient instructions): Acute Headache (ED) Additional Instructions: Please return to the Emergency Department if symptoms worsen or any other concerns. Follow-up primary care 1-2 days. Continue take at home medications as prescribed. Is patient prescribed a controlled substance at d/c from ED?: No Referrals: José Reece MD [Primary Care Provider] - 1-2 days Time of Disposition: 21:59
== END 2020-12-08 22:47 | disposition home or self-care (01) ==
LOC: EC 15:52
DX: G43.909 Migraine, unspecified, not intractable, without status migrainosus (principal); I10 Essential (primary) hypertension; E78.5 Hyperlipidemia, unspecified; F31.9 Bipolar disorder, unspecified; F41.9 Anxiety disorder, unspecified; G40.909 Epilepsy, unspecified, not intractable, without status epilepticus; F17.200 Nicotine dependence, unspecified, uncomplicated; Z79.899 Other long term (current) drug therapy; Z88.0 Allergy status to penicillin; Z88.1 Allergy status to other antibiotic agents; Z88.5 Allergy status to narcotic agent; Z88.6 Allergy status to analgesic agent; Z88.8 Allergy status to other drugs, medicaments and biological substances; Z83.3 Family history of diabetes mellitus; Z82.49 Family history of ischemic heart disease and other diseases of the circulatory system
CPT/HCPCS: 96374; 96375 ×3; 96376; 96361; 99283; J1200; J2405; J1642; J1170

== ENCOUNTER 2020-12-11 12:49 | Emergency (ER) | payer OTHER ==
[2020-12-11 12:52] VITALS: TEMP 98.3
[2020-12-11] MEDS ORDERED: HYDROmorphone 1 MG/ML 1 ML SYRINGE IVP STA (13:08)
[2020-12-11] MEDS ORDERED: ONDANSETRON 4 MG/2 ML VIAL IVP STA (13:09)
[2020-12-11] MEDS ORDERED: diphenhydrAMINE 50 MG/ML 1 ML VIAL IVP STA (13:32)
--- NOTE | 2020-12-11 13:39 | ED ---
General Adult HPI - General Chief complaint: Headache Stated complaint: Headache Time Seen by Provider: 12/11/20 13:04 Source: patient, RN notes reviewed Mode of arrival: wheelchair Limitations: no limitations - History of Present Illness Initial comments: 50-year-old female with a past medical history of migraines, hyperlipidemia, hypertension presents to the emergency room for a chief complaint of headache. Patient states she had a migraine headache that started gradually earlier this morning.. Patient states this is consistent with previous migraines. She did try her migraine medications at home without help. Patient denies any sudden onset thunderclap headache symptoms. Patient recently had normal MRI.Patient has no other complaints at this time including shortness of breath, chest pain, abdominal pain, nausea or vomiting, or visual changes. - Related Data Home Medications Medication Instructions Recorded Confirmed Atorvastatin [Lipitor] 40 mg PO HS 04/02/17 11/15/20 Lacosamide [Vimpat] 100 mg PO BID 06/04/17 11/15/20 Galcanezumab-Gnlm [Emgality Pen] 120 mg SQ Q30D 04/28/20 11/15/20 amLODIPine [Norvasc] 5 mg PO DAILY 04/28/20 11/15/20 hydrOXYzine pamoate [Vistaril] 25 mg PO TID PRN 09/06/20 11/15/20 Albuterol Inhaler [Ventolin Hfa 1 - 2 puff INHALATION RT-Q6H PRN 11/15/20 11/15/20 Inhaler] Hyoscyamine Sulfate [Levsin] 0.125 mg PO Q4H 11/15/20 11/15/20 Omeprazole 40 mg PO HS 11/15/20 11/15/20 Previous Rx's Medication Instructions Recorded Butalb/APAP/Caff 50-325-40Mg 1 each PO Q4HR PRN #10 tab 11/17/20 [Fioricet 50-325-40] HYDROcodone/APAP 7.5-325MG [[place] 1 tab PO TID PRN #12 tab 11/17/20 7.5-325] Verapamil Sr [Isoptin Sr] 180 mg PO DAILY 30 Days #30 tab 11/17/20 Allergies Allergy/AdvReac Type Severity Reaction Status Date / Time dihydroergotamine Allergy Unknown Unknown Verified 12/11/20 12:52 [From Migranal] gabapentin [From Neurontin] Allergy Itching/Swe Verified 12/11/20 12:52 lling latex Allergy Anaphylaxis Verified 12/11/20 12:52 lidocaine Allergy Unknown Verified 12/11/20 12:52 naproxen [From Naprosyn] Allergy Anaphylaxis Verified 12/11/20 12:52 Penicillins Allergy Anaphylaxis Verified 12/11/20 12:52 prednisone Allergy Swelling Verified 12/11/20 12:52 quetiapine fumarate Allergy Itching, Verified 12/11/20 12:52 [From Seroquel] leg cramps rofecoxib [From Vioxx] Allergy Itching, Verified 12/11/20 12:52 leg cramps terfenadine [From Seldane] Allergy Rash/Hives Verified 12/11/20 12:52 tramadol Allergy Nausea & Verified 12/11/20 12:52 Vomiting/LEG CRAMPS/HEART FLUTTERS calcium carbonate [From DHEA] AdvReac Chest Pain Verified 12/11/20 12:52 calcium phosphate,dibasic AdvReac Chest Pain Verified 12/11/20 12:52 [From DHEA] clindamycin AdvReac muscle Verified 12/11/20 12:52 cramps clonidine AdvReac fast Verified 12/11/20 12:52 heartbeat, migraine dextromethorphan HBr AdvReac face/neck Verified 12/11/20 12:52 [From NyQuil] flushing diazepam [From Valium] AdvReac Nausea & Verified 12/11/20 12:52 Vomiting divalproex sodium AdvReac Nausea & Verified 12/11/20 12:52 [From Depakote] Vomiting doxylamine [From NyQuil] AdvReac face "beet Verified 12/11/20 12:52 red", elevated temp. ibuprofen [From Motrin] AdvReac abdominal Verified 12/11/20 12:52 & muscle cramps indomethacin [From Indocin] AdvReac Abdominal Verified 12/11/20 12:52 Pain,N/V ketorolac tromethamine AdvReac "built up Verified 12/11/20 12:52 [From Toradol] in system", had to be given something to reverse lorazepam [From Ativan] AdvReac Nausea & Verified 12/11/20 12:52 Vomiting memantine [From Namenda] AdvReac Itching Verified 12/11/20 12:52 metoclopramide HCl AdvReac muscle Verified 12/11/20 12:52 [From Reglan] cramps nortriptyline [From Pamelor] AdvReac Chest Pain Verified 12/11/20 12:52 prasterone (DHEA) [From DHEA] AdvReac Chest Pain Verified 12/11/20 12:52 prochlorperazine AdvReac leg Verified 12/11/20 12:52 [From Compazine] cramping propranolol AdvReac Chest Pain Verified 12/11/20 12:52 pseudoephedrine HCl AdvReac face "beet Verified 12/11/20 12:52 [From NyQuil] red", elevated temp. quetiapine [From Seroquel] AdvReac leg Verified 12/11/20 12:52 cramping sumatriptan [From Imitrex] AdvReac migrane Verified 12/11/20 12:52 sumatriptan succinate AdvReac migrane Verified 12/11/20 12:52 [From Imitrex] topiramate [From Topamax] AdvReac "built up Verified 12/11/20 12:52 in system", had to be given something to reverse trazodone AdvReac "built up Verified 12/11/20 12:52 in system", had to be given something to reverse zolpidem tartrate AdvReac "Became Verified 12/11/20 12:52 [From Ambien] violent with no memory" zonisamide [From Zonegran] AdvReac inability Verified 12/11/20 12:52 to eat artificial sweetener AdvReac SEVERE Uncoded 12/11/20 12:52 MIGRAINE HEADACHE Review of Systems ROS Statement: Those systems with pertinent positive or pertinent negative responses have been documented in the HPI. ROS Other: All systems not noted in ROS Statement are negative. Past Medical History Past Medical History: Hyperlipidemia, Hypertension, Seizure Disorder Additional Past Medical History / Comment(s): Migraines, viral meningitis x3 as a child, 1995, 2000, chronic back pain, nerve blocks 08/2016 and 12/2016. Last seizure 10/10/2020, "ABSENT SEIZURES. HX TACHYCARDIA, GBS/CIPD, PTSD. History of Any Multi-Drug Resistant Organisms: None Reported Past Surgical History: Appendectomy, Section, Cholecystectomy, Hernia Repair, Hysterectomy, Orthopedic Surgery, Tonsillectomy, Tubal Ligation Additional Past Surgical History / Comment(s): Hiatal Hernia, umbilical hernia repair, left rotator cuff repair, bilateral knee scopes, pain clinic procedures-occipital nerve block. abd exploratory sx(endometreosis), 3 abd scopes 1981, 1989, 1991), lumbar puncture. EGD. nerve biopsy, salvalry gland biospy Past Anesthesia/Blood Transfusion Reactions: No Reported Reaction Additional Past Anesthesia/Blood Transfusion Reaction / Comment(s): Claustrophobic Past Psychological History: Anxiety, Bipolar, Panic Disorder, PTSD Smoking Status: Current every day smoker Past Alcohol Use History: None Reported Past Drug Use History: None Reported - Past Family History Mother Family Medical History: Cancer, Dementia, Diabetes Mellitus, GERD/Reflux, Hyperlipidemia, Hypertension, Thyroid Disorder Additional Family Medical History / Comment(s): Quad CABG, cardiac stents, toes ampuated. Father History Unknown: Yes Family Medical History: No Reported History General Exam Limitations: no limitations General appearance: alert, in no apparent distress Head exam: Present: atraumatic Eye exam: Present: normal appearance, PERRL, EOMI. Absent: scleral icterus, conjunctival injection ENT exam: Present: normal exam, mucous membranes moist Neck exam: Present: normal inspection, full ROM. Absent: tenderness Respiratory exam: Present: normal lung sounds bilaterally. Absent: respiratory distress, wheezes Cardiovascular Exam: Present: regular rate, normal rhythm, normal heart sounds Neurological exam: Present: alert, oriented X3, other (GCS 15) Course Vital Signs 12/11/20 12:50 Temperature 98.3 F Pulse Rate 119 H Respiratory 20 Rate Blood Pressure 127/90 O2 Sat by Pulse 96 Oximetry Medical Decision Making - Medical Decision Making MRI obtained from earlier within the past month was reviewed and there were no acute changes. Patient was given migraine medication tailored to her ALLERGIES. She will be discharged home to follow up with primary care. She'll return here for any worsening symptoms. Disposition Clinical Impression: Migraine headache Disposition: HOME SELF-CARE Condition: Good Instructions (If sedation given, give patient instructions): Acute Headache (ED) Additional Instructions: Please follow up with your doctor in 1-2 days. Return to the ER for any worsening symptoms Is patient prescribed a controlled substance at d/c from ED?: No Referrals: Shanell,José, MD [Primary Care Provider] - 1-2 days Time of Disposition: 13:39
[2020-12-11 14:14] VITALS: PULSE 97
[2020-12-11 14:15] VITALS: BP 137/95; RESP 18
== END 2020-12-11 14:17 | disposition home or self-care (01) ==
LOC: EC 12:49
DX: G43.909 Migraine, unspecified, not intractable, without status migrainosus (principal); I10 Essential (primary) hypertension; E78.5 Hyperlipidemia, unspecified; G40.909 Epilepsy, unspecified, not intractable, without status epilepticus; F41.9 Anxiety disorder, unspecified; F31.9 Bipolar disorder, unspecified; F17.200 Nicotine dependence, unspecified, uncomplicated; Z90.49 Acquired absence of other specified parts of digestive tract; Z88.6 Allergy status to analgesic agent; Z88.2 Allergy status to sulfonamides; Z88.1 Allergy status to other antibiotic agents; Z88.0 Allergy status to penicillin; Z88.5 Allergy status to narcotic agent; Z88.8 Allergy status to other drugs, medicaments and biological substances; Z91.040 Latex allergy status
CPT/HCPCS: 99283; 96374; 96375 ×2; J1200; J2405; J1170

== ENCOUNTER 2020-12-11 21:54 | Emergency (ER) | payer OTHER ==
--- NOTE | 2020-12-11 22:43 | ED ---
Recheck HPI - General Chief Complaint: Headache Stated Complaint: Migraine Time Seen by Provider: 12/11/20 22:41 Source: patient, RN notes reviewed, old records reviewed Mode of arrival: wheelchair Limitations: no limitations - History of Present Illness MD Complaint: medication refill request -: unknown Initial Visit For: other (devendra YAO) Returns Today for: persistent/worsening pain related to initial visit Symptoms Since Prior Visit: worsening pain Context: ran out of medication, other (NV,YAO) Associated Symptoms: none Treatments Prior to Arrival: Given Pain Meds on - Related Data Home Medications Medication Instructions Recorded Confirmed Atorvastatin [Lipitor] 40 mg PO HS 04/02/17 11/15/20 Lacosamide [Vimpat] 100 mg PO BID 06/04/17 11/15/20 Galcanezumab-Gnlm [Emgality Pen] 120 mg SQ Q30D 04/28/20 11/15/20 amLODIPine [Norvasc] 5 mg PO DAILY 04/28/20 11/15/20 hydrOXYzine pamoate [Vistaril] 25 mg PO TID PRN 09/06/20 11/15/20 Albuterol Inhaler [Ventolin Hfa 1 - 2 puff INHALATION RT-Q6H PRN 11/15/20 11/15/20 Inhaler] Hyoscyamine Sulfate [Levsin] 0.125 mg PO Q4H 11/15/20 11/15/20 Omeprazole 40 mg PO HS 11/15/20 11/15/20 Previous Rx's Medication Instructions Recorded Butalb/APAP/Caff 50-325-40Mg 1 each PO Q4HR PRN #10 tab 11/17/20 [Fioricet 50-325-40] HYDROcodone/APAP 7.5-325MG [[place] 1 tab PO TID PRN #12 tab 11/17/20 7.5-325] Verapamil Sr [Isoptin Sr] 180 mg PO DAILY 30 Days #30 tab 11/17/20 Allergies Allergy/AdvReac Type Severity Reaction Status Date / Time dihydroergotamine Allergy Unknown Unknown Verified 12/11/20 12:52 [From Migranal] gabapentin [From Neurontin] Allergy Itching/Swe Verified 12/11/20 12:52 lling latex Allergy Anaphylaxis Verified 12/11/20 12:52 lidocaine Allergy Unknown Verified 12/11/20 12:52 naproxen [From Naprosyn] Allergy Anaphylaxis Verified 12/11/20 12:52 Penicillins Allergy Anaphylaxis Verified 12/11/20 12:52 prednisone Allergy Swelling Verified 12/11/20 12:52 quetiapine fumarate Allergy Itching, Verified 12/11/20 12:52 [From Seroquel] leg cramps rofecoxib [From Vioxx] Allergy Itching, Verified 12/11/20 12:52 leg cramps terfenadine [From Seldane] Allergy Rash/Hives Verified 12/11/20 12:52 tramadol Allergy Nausea & Verified 12/11/20 12:52 Vomiting/LEG CRAMPS/HEART FLUTTERS calcium carbonate [From DHEA] AdvReac Chest Pain Verified 12/11/20 12:52 calcium phosphate,dibasic AdvReac Chest Pain Verified 12/11/20 12:52 [From DHEA] clindamycin AdvReac muscle Verified 12/11/20 12:52 cramps clonidine AdvReac fast Verified 12/11/20 12:52 heartbeat, migraine dextromethorphan HBr AdvReac face/neck Verified 12/11/20 12:52 [From NyQuil] flushing diazepam [From Valium] AdvReac Nausea & Verified 12/11/20 12:52 Vomiting divalproex sodium AdvReac Nausea & Verified 12/11/20 12:52 [From Depakote] Vomiting doxylamine [From NyQuil] AdvReac face "beet Verified 12/11/20 12:52 red", elevated temp. ibuprofen [From Motrin] AdvReac abdominal Verified 12/11/20 12:52 & muscle cramps indomethacin [From Indocin] AdvReac Abdominal Verified 12/11/20 12:52 Pain,N/V ketorolac tromethamine AdvReac "built up Verified 12/11/20 12:52 [From Toradol] in system", had to be given something to reverse lorazepam [From Ativan] AdvReac Nausea & Verified 12/11/20 12:52 Vomiting memantine [From Namenda] AdvReac Itching Verified 12/11/20 12:52 metoclopramide HCl AdvReac muscle Verified 12/11/20 12:52 [From Reglan] cramps nortriptyline [From Pamelor] AdvReac Chest Pain Verified 12/11/20 12:52 prasterone (DHEA) [From DHEA] AdvReac Chest Pain Verified 12/11/20 12:52 prochlorperazine AdvReac leg Verified 12/11/20 12:52 [From Compazine] cramping propranolol AdvReac Chest Pain Verified 12/11/20 12:52 pseudoephedrine HCl AdvReac face "beet Verified 12/11/20 12:52 [From NyQuil] red", elevated temp. quetiapine [From Seroquel] AdvReac leg Verified 12/11/20 12:52 cramping sumatriptan [From Imitrex] AdvReac migrane Verified 12/11/20 12:52 sumatriptan succinate AdvReac migrane Verified 12/11/20 12:52 [From Imitrex] topiramate [From Topamax] AdvReac "built up Verified 12/11/20 12:52 in system", had to be given something to reverse trazodone AdvReac "built up Verified 12/11/20 12:52 in system", had to be given something to reverse zolpidem tartrate AdvReac "Became Verified 12/11/20 12:52 [From Ambien] violent with no memory" zonisamide [From Zonegran] AdvReac inability Verified 12/11/20 12:52 to eat artificial sweetener AdvReac SEVERE Uncoded 12/11/20 12:52 MIGRAINE HEADACHE Review of Systems ROS Statement: Those systems with pertinent positive or pertinent negative responses have been documented in the HPI. ROS Other: All systems not noted in ROS Statement are negative. Past Medical History Past Medical History: Hyperlipidemia, Hypertension, Seizure Disorder Additional Past Medical History / Comment(s): Migraines, viral meningitis x3 as a child, 1995, 2000, chronic back pain, nerve blocks 08/2016 and 12/2016. Last seizure 10/10/2020, "ABSENT SEIZURES. HX TACHYCARDIA, GBS/CIPD, PTSD. History of Any Multi-Drug Resistant Organisms: None Reported Past Surgical History: Appendectomy, Section, Cholecystectomy, Hernia Repair, Hysterectomy, Orthopedic Surgery, Tonsillectomy, Tubal Ligation Additional Past Surgical History / Comment(s): Hiatal Hernia, umbilical hernia repair, left rotator cuff repair, bilateral knee scopes, pain clinic procedures- occipital nerve block. abd exploratory sx(endometreosis), 3 abd scopes 1981, 1989, 1991), lumbar puncture. EGD. nerve biopsy, salvalry gland biospy Past Anesthesia/Blood Transfusion Reactions: No Reported Reaction Additional Past Anesthesia/Blood Transfusion Reaction / Comment(s): Claustrophobic Past Psychological History: Anxiety, Bipolar, Panic Disorder, PTSD Smoking Status: Current every day smoker Past Alcohol Use History: None Reported Past Drug Use History: None Reported - Past Family History Mother Family Medical History: Cancer, Dementia, Diabetes Mellitus, GERD/Reflux, Hyperlipidemia, Hypertension, Thyroid Disorder Additional Family Medical History / Comment(s): Quad CABG, cardiac stents, toes ampuated. Father History Unknown: Yes Family Medical History: No Reported History General Exam Limitations: no limitations General appearance: alert, in no apparent distress Head exam: Present: atraumatic, normocephalic, normal inspection Eye exam: Present: normal appearance, PERRL, EOMI. Absent: scleral icterus, conjunctival injection, periorbital swelling ENT exam: Present: normal exam, mucous membranes moist Neck exam: Present: normal inspection. Absent: tenderness, meningismus, lymphadenopathy Respiratory exam: Present: normal lung sounds bilaterally. Absent: respiratory distress, wheezes, rales, rhonchi, stridor Cardiovascular Exam: Present: regular rate, normal rhythm, normal heart sounds. Absent: systolic murmur, diastolic murmur, rubs, gallop, clicks GI/Abdominal exam: Present: soft, normal bowel sounds. Absent: distended, tenderness, guarding, rebound, rigid Extremities exam: Present: normal inspection, full ROM, normal capillary refill. Absent: tenderness, pedal edema, joint swelling, calf tenderness Back exam: Present: normal inspection Neurological exam: Present: alert, oriented X3, CN II-XII intact Psychiatric exam: Present: normal affect, normal mood Skin exam: Present: warm, dry, intact, normal color. Absent: rash Course Vital Signs 12/11/20 22:34 Temperature 98.5 F Pulse Rate 68 Respiratory 20 Rate Blood Pressure 124/86 O2 Sat by Pulse 95 Oximetry - Reevaluation(s) Reevaluation #1: 12/12/20 00:04 Medical record is reviewed Reevaluation #2: 12/12/20 00:04 Patient's headache is resolved Reevaluation #3: 12/12/20 00:04 Patient can be discharged home Disposition Clinical Impression: Nausea and vomiting, Migraine, Headache Disposition: HOME SELF-CARE Condition: Fair Instructions (If sedation given, give patient instructions): Acute Headache (ED) Is patient prescribed a controlled substance at d/c from ED?: No Referrals: José Reece MD [Primary Care Provider] - 1-2 days
[2020-12-11] MEDS ORDERED: HYDROmorphone 1 MG/ML 1 ML SYRINGE IVP STA (22:55)
[2020-12-11] MEDS ORDERED: SODIUM CHLORIDE 0.9% 500 ML 500 ML IV STA (22:55)
[2020-12-11] MEDS ORDERED: diphenhydrAMINE 50 MG/ML 1 ML VIAL IVP STA (22:55)
[2020-12-11] MEDS ORDERED: ORPHENADRINE 30 MG/ML 2 ML VIAL IVP STA (22:56)
[2020-12-12] MEDS ORDERED: HYDROmorphone 1 MG/ML 1 ML SYRINGE IVP STA (00:06)
[2020-12-12 01:10] VITALS: BP 126/88; PULSE 95; RESP 18; TEMP 98
== END 2020-12-12 01:10 | disposition home or self-care (01) ==
LOC: EC 21:54
DX: G43.909 Migraine, unspecified, not intractable, without status migrainosus (principal); R11.2 Nausea with vomiting, unspecified; I10 Essential (primary) hypertension; E78.5 Hyperlipidemia, unspecified; F41.9 Anxiety disorder, unspecified; F31.9 Bipolar disorder, unspecified; F43.12 Post-traumatic stress disorder, chronic; F17.200 Nicotine dependence, unspecified, uncomplicated; Z91.040 Latex allergy status; Z88.0 Allergy status to penicillin; Z88.1 Allergy status to other antibiotic agents; Z88.5 Allergy status to narcotic agent; Z88.6 Allergy status to analgesic agent; Z90.49 Acquired absence of other specified parts of digestive tract; Z90.710 Acquired absence of both cervix and uterus; Z98.51 Tubal ligation status; Z90.89 Acquired absence of other organs
CPT/HCPCS: 99283; 96374; 96375 ×3; 96376; 96361; J1200; J2360; J1170; J1790

== ENCOUNTER 2020-12-13 13:08 | Emergency (ER) | payer OTHER ==
[2020-12-13 13:17] VITALS: BP 133/85; PULSE 115; RESP 20; TEMP 98.9
[2020-12-13] MEDS ORDERED: HYDROmorphone 1 MG/ML 1 ML SYRINGE IM STA (13:37)
[2020-12-13] MEDS ORDERED: ONDANSETRON 4 MG/2 ML VIAL IM STA (13:38)
--- NOTE | 2020-12-13 13:41 | ED ---
General Adult HPI - General Chief complaint: Headache Stated complaint: Headache/Vomiting Time Seen by Provider: 12/13/20 13:21 Source: patient, RN notes reviewed, old records reviewed Mode of arrival: wheelchair Limitations: no limitations - History of Present Illness Initial comments: Patient is a pleasant 50-year-old female returning to the emergency Department with complaints of headache. Patient is chronic headaches. Patient does freely visit the emergency department for headaches. Patient states she cannot get into see her doctor and therefore came here. Patient does have a neurologist cc at [facility] however does not take the medication prescribed secondary to finances. Current headache has been lasting about 5 days. Gradual onset. Patient does have some nausea vomiting. No new weakness. 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 Headache is generalized and severe. Headache feels similar to previous headaches. - Related Data Home Medications Medication Instructions Recorded Confirmed Atorvastatin [Lipitor] 40 mg PO HS 04/02/17 11/15/20 Lacosamide [Vimpat] 100 mg PO BID 06/04/17 11/15/20 Galcanezumab-Gnlm [Emgality Pen] 120 mg SQ Q30D 04/28/20 11/15/20 amLODIPine [Norvasc] 5 mg PO DAILY 04/28/20 11/15/20 hydrOXYzine pamoate [Vistaril] 25 mg PO TID PRN 09/06/20 11/15/20 Albuterol Inhaler [Ventolin Hfa 1 - 2 puff INHALATION RT-Q6H PRN 11/15/20 11/15/20 Inhaler] Hyoscyamine Sulfate [Levsin] 0.125 mg PO Q4H 11/15/20 11/15/20 Omeprazole 40 mg PO HS 11/15/20 11/15/20 Previous Rx's Medication Instructions Recorded Butalb/APAP/Caff 50-325-40Mg 1 each PO Q4HR PRN #10 tab 11/17/20 [Fioricet 50-325-40] HYDROcodone/APAP 7.5-325MG [[place] 1 tab PO TID PRN #12 tab 11/17/20 7.5-325] Verapamil Sr [Isoptin Sr] 180 mg PO DAILY 30 Days #30 tab 11/17/20 Allergies Allergy/AdvReac Type Severity Reaction Status Date / Time dihydroergotamine Allergy Unknown Unknown Verified 12/13/20 13:14 [From Migranal] gabapentin [From Neurontin] Allergy Itching/Swe Verified 12/13/20 13:14 lling latex Allergy Anaphylaxis Verified 12/13/20 13:14 lidocaine Allergy Unknown Verified 12/13/20 13:14 naproxen [From Naprosyn] Allergy Anaphylaxis Verified 12/13/20 13:14 Penicillins Allergy Anaphylaxis Verified 12/13/20 13:14 prednisone Allergy Swelling Verified 12/13/20 13:14 quetiapine fumarate Allergy Itching, Verified 12/13/20 13:14 [From Seroquel] leg cramps rofecoxib [From Vioxx] Allergy Itching, Verified 12/13/20 13:14 leg cramps terfenadine [From Seldane] Allergy Rash/Hives Verified 12/13/20 13:14 tramadol Allergy Nausea & Verified 12/13/20 13:14 Vomiting/LEG CRAMPS/HEART FLUTTERS calcium carbonate [From DHEA] AdvReac Chest Pain Verified 12/13/20 13:14 calcium phosphate,dibasic AdvReac Chest Pain Verified 12/13/20 13:14 [From DHEA] clindamycin AdvReac muscle Verified 12/13/20 13:14 cramps clonidine AdvReac fast Verified 12/13/20 13:14 heartbeat, migraine dextromethorphan HBr AdvReac face/neck Verified 12/13/20 13:14 [From NyQuil] flushing diazepam [From Valium] AdvReac Nausea & Verified 12/13/20 13:14 Vomiting divalproex sodium AdvReac Nausea & Verified 12/13/20 13:14 [From Depakote] Vomiting doxylamine [From NyQuil] AdvReac face "beet Verified 12/13/20 13:14 red", elevated temp. ibuprofen [From Motrin] AdvReac abdominal Verified 12/13/20 13:14 & muscle cramps indomethacin [From Indocin] AdvReac Abdominal Verified 12/13/20 13:14 Pain,N/V ketorolac tromethamine AdvReac "built up Verified 12/13/20 13:14 [From Toradol] in system", had to be given something to reverse lorazepam [From Ativan] AdvReac Nausea & Verified 12/13/20 13:14 Vomiting memantine [From Namenda] AdvReac Itching Verified 12/13/20 13:14 metoclopramide HCl AdvReac muscle Verified 12/13/20 13:14 [From Reglan] cramps nortriptyline [From Pamelor] AdvReac Chest Pain Verified 12/13/20 13:14 prasterone (DHEA) [From DHEA] AdvReac Chest Pain Verified 12/13/20 13:14 prochlorperazine AdvReac leg Verified 12/13/20 13:14 [From Compazine] cramping propranolol AdvReac Chest Pain Verified 12/13/20 13:14 pseudoephedrine HCl AdvReac face "beet Verified 12/13/20 13:14 [From NyQuil] red", elevated temp. quetiapine [From Seroquel] AdvReac leg Verified 12/13/20 13:14 cramping sumatriptan [From Imitrex] AdvReac migrane Verified 12/13/20 13:14 sumatriptan succinate AdvReac migrane Verified 12/13/20 13:14 [From Imitrex] topiramate [From Topamax] AdvReac "built up Verified 12/13/20 13:14 in system", had to be given something to reverse trazodone AdvReac "built up Verified 12/13/20 13:14 in system", had to be given something to reverse zolpidem tartrate AdvReac "Became Verified 12/13/20 13:14 [From Ambien] violent with no memory" zonisamide [From Zonegran] AdvReac inability Verified 12/13/20 13:14 to eat artificial sweetener AdvReac SEVERE Uncoded 12/13/20 13:14 MIGRAINE HEADACHE Review of Systems ROS Statement: Those systems with pertinent positive or pertinent negative responses have been documented in the HPI. ROS Other: All systems not noted in ROS Statement are negative. Constitutional: Denies: fever Eyes: Denies: eye pain ENT: Denies: ear pain Respiratory: Denies: cough Cardiovascular: Denies: chest pain Endocrine: Denies: fatigue Gastrointestinal: Denies: abdominal pain Genitourinary: Denies: dysuria Musculoskeletal: Denies: back pain Skin: Denies: rash Neurological: Reports: as per HPI, headache Past Medical History Past Medical History: Hyperlipidemia, Hypertension, Seizure Disorder Additional Past Medical History / Comment(s): Migraines, viral meningitis x3 as a child, 1995, 2000, chronic back pain, nerve blocks 08/2016 and 12/2016. Last seizure 10/10/2020, "ABSENT SEIZURES. HX TACHYCARDIA, GBS/CIPD, PTSD. History of Any Multi-Drug Resistant Organisms: None Reported Past Surgical History: Appendectomy, Section, Cholecystectomy, Hernia Repair, Hysterectomy, Orthopedic Surgery, Tonsillectomy, Tubal Ligation Additional Past Surgical History / Comment(s): Hiatal Hernia, umbilical hernia repair, left rotator cuff repair, bilateral knee scopes, pain clinic procedures- occipital nerve block. abd exploratory sx(endometreosis), 3 abd scopes 1981, 1989, 1991), lumbar puncture. EGD. nerve biopsy, salvalry gland biospy Past Anesthesia/Blood Transfusion Reactions: No Reported Reaction Additional Past Anesthesia/Blood Transfusion Reaction / Comment(s): Claustrophobic Past Psychological History: Anxiety, Bipolar, Panic Disorder, PTSD Smoking Status: Current every day smoker Past Alcohol Use History: None Reported Past Drug Use History: None Reported - Past Family History Mother Family Medical History: Cancer, Dementia, Diabetes Mellitus, GERD/Reflux, Hyperlipidemia, Hypertension, Thyroid Disorder Additional Family Medical History / Comment(s): Quad CABG, cardiac stents, toes ampuated. Father History Unknown: Yes Family Medical History: No Reported History General Exam Limitations: no limitations General appearance: alert, in no apparent distress Head exam: Present: atraumatic, normocephalic Eye exam: Present: normal appearance, PERRL, EOMI ENT exam: Present: normal exam Neck exam: Present: normal inspection Respiratory exam: Present: normal lung sounds bilaterally Cardiovascular Exam: Present: regular rate, normal rhythm GI/Abdominal exam: Present: soft. Absent: tenderness Extremities exam: Present: normal inspection Neurological exam: Present: alert, CN II-XII intact. Absent: motor sensory deficit (Except Decreased sensation bilateral legs which patient states is chronic.) Expanded Neurological exam: Present: protecting the airway Speech: Present: fluid speech Cranial nerves: EOM's Intact: Normal Motor strength exam: RUE: 5, LUE: 5, RLE: 5, LLE: 5 Eye Response: (4) open spontaneously Motor Response: (6) obeys commands Verbal Response: (5) oriented Psychiatric exam: Present: normal affect, normal mood Skin exam: Present: normal color Course Vital Signs 12/13/20 13:14 Temperature 98.9 F Pulse Rate 115 H Respiratory 20 Rate Blood Pressure 133/85 O2 Sat by Pulse 99 Oximetry Disposition Clinical Impression: Chronic pain, Headache Disposition: HOME SELF-CARE Condition: Stable Instructions (If sedation given, give patient instructions): Acute Headache (ED) Additional Instructions: Please do follow-up with your doctor in the next day or 2 for recheck. Please also follow-up with your neurologist the next couple days for recheck. Inform your neurologist that they will need a new plan to manage your chronic headaches. Return for fever, weakness, worsening or change in symptoms or other concerns. Is patient prescribed a controlled substance at d/c from ED?: No Referrals: José Reece MD [Primary Care Provider] - 1-2 days Time of Disposition: 13:40
== END 2020-12-13 13:55 | disposition home or self-care (01) ==
LOC: EC 13:08
DX: R51.9 Headache, unspecified (principal); G89.29 Other chronic pain; I10 Essential (primary) hypertension; E78.5 Hyperlipidemia, unspecified; F41.9 Anxiety disorder, unspecified; F31.9 Bipolar disorder, unspecified; F43.12 Post-traumatic stress disorder, chronic; F17.200 Nicotine dependence, unspecified, uncomplicated; Z91.040 Latex allergy status; Z88.0 Allergy status to penicillin; Z88.6 Allergy status to analgesic agent; Z88.5 Allergy status to narcotic agent; Z88.1 Allergy status to other antibiotic agents; Z90.49 Acquired absence of other specified parts of digestive tract; Z90.710 Acquired absence of both cervix and uterus; Z90.89 Acquired absence of other organs; Z98.51 Tubal ligation status; Z88.2 Allergy status to sulfonamides; Z88.8 Allergy status to other drugs, medicaments and biological substances
CPT/HCPCS: 99283; 96372 ×2; J2405; J1170

== ENCOUNTER 2020-12-13 20:54 | Emergency (ER) | payer OTHER ==
[2020-12-13 21:18] VITALS: RESP 20
[2020-12-13] MEDS ORDERED: HYDROmorphone 1 MG/ML 1 ML SYRINGE IM STA (21:42)
[2020-12-13] MEDS ORDERED: ONDANSETRON 4 MG/2 ML VIAL IVP STA (21:42)
[2020-12-13] MEDS ORDERED: diphenhydrAMINE 50 MG/ML 1 ML VIAL IVP STA (21:42)
[2020-12-13] MEDS ORDERED: SODIUM CHLORIDE 0.9% 500 ML 500 ML IV STA (21:43)
[2020-12-13] MEDS ORDERED: HYDROmorphone 1 MG/ML 1 ML SYRINGE IVP STA (22:19)
--- NOTE | 2020-12-13 22:19 | ED ---
Headache HPI - General Chief Complaint: Headache Stated Complaint: REVISIT Headache Time Seen by Provider: 12/13/20 21:21 Source: RN notes reviewed Mode of arrival: ambulatory Limitations: no limitations - History of Present Illness Initial Comments: Patient is a 50-year-old female that presents to emergency room complaining of a migraine. She notes that she gets these all the time. She frequents this emergency department. She notes that the lauded Zofran and Benadryl make her headaches better. She notes that she was here earlier today got IM medications and also did not help at all. Patient is still complaining of migraine type headache that she regularly gets. She denied any other issues or complaints at this time. Just wants medications to an IV. She denied any chest pain shortness of breath vomiting diarrhea constipation fever fatigue chills. - Related Data Home Medications Medication Instructions Recorded Confirmed Atorvastatin [Lipitor] 40 mg PO HS 04/02/17 11/15/20 Lacosamide [Vimpat] 100 mg PO BID 06/04/17 11/15/20 Galcanezumab-Gnlm [Emgality Pen] 120 mg SQ Q30D 04/28/20 11/15/20 amLODIPine [Norvasc] 5 mg PO DAILY 04/28/20 11/15/20 hydrOXYzine pamoate [Vistaril] 25 mg PO TID PRN 09/06/20 11/15/20 Albuterol Inhaler [Ventolin Hfa 1 - 2 puff INHALATION RT-Q6H PRN 11/15/2011/05 Inhaler] Hyoscyamine Sulfate [Levsin] 0.125 mg PO Q4H 11/15/20 11/15/20 Omeprazole 40 mg PO HS 11/15/20 11/15/20 Previous Rx's Medication Instructions Recorded Butalb/APAP/Caff 50-325-40Mg 1 each PO Q4HR PRN #10 tab 11/17/20 [Fioricet 50-325-40] HYDROcodone/APAP 7.5-325MG [[place] 1 tab PO TID PRN #12 tab 11/17/20 7.5-325] Verapamil Sr [Isoptin Sr] 180 mg PO DAILY 30 Days #30 tab 11/17/20 Allergies Allergy/AdvReac Type Severity Reaction Status Date / Time dihydroergotamine Allergy Unknown Unknown Verified 12/13/20 21:18 [From Migranal] gabapentin [From Neurontin] Allergy Itching/Swe Verified 12/13/20 21:18 lling latex Allergy Anaphylaxis Verified 12/13/20 21:18 lidocaine Allergy Unknown Verified 12/13/20 21:18 naproxen [From Naprosyn] Allergy Anaphylaxis Verified 12/13/20 21:18 Penicillins Allergy Anaphylaxis Verified 12/13/20 21:18 prednisone Allergy Swelling Verified 12/13/20 21:18 quetiapine fumarate Allergy Itching, Verified 12/13/20 21:18 [From Seroquel] leg cramps rofecoxib [From Vioxx] Allergy Itching, Verified 12/13/20 21:18 leg cramps terfenadine [From Seldane] Allergy Rash/Hives Verified 12/13/20 21:18 tramadol Allergy Nausea & Verified 12/13/20 21:18 Vomiting/LEG CRAMPS/HEART FLUTTERS calcium carbonate [From DHEA] AdvReac Chest Pain Verified 12/13/20 21:18 calcium phosphate,dibasic AdvReac Chest Pain Verified 12/13/20 21:18 [From DHEA] clindamycin AdvReac muscle Verified 12/13/20 21:18 cramps clonidine AdvReac fast Verified 12/13/20 21:18 heartbeat, migraine dextromethorphan HBr AdvReac face/neck Verified 12/13/20 21:18 [From NyQuil] flushing diazepam [From Valium] AdvReac Nausea & Verified 12/13/20 21:18 Vomiting divalproex sodium AdvReac Nausea & Verified 12/13/20 21:18 [From Depakote] Vomiting doxylamine [From NyQuil] AdvReac face "beet Verified 12/13/20 21:18 red", elevated temp. ibuprofen [From Motrin] AdvReac abdominal Verified 12/13/20 21:18 & muscle cramps indomethacin [From Indocin] AdvReac Abdominal Verified 12/13/20 21:18 Pain,N/V ketorolac tromethamine AdvReac "built up Verified 12/13/20 21:18 [From Toradol] in system", had to be given something to reverse lorazepam [From Ativan] AdvReac Nausea & Verified 12/13/20 21:18 Vomiting memantine [From Namenda] AdvReac Itching Verified 12/13/20 21:18 metoclopramide HCl AdvReac muscle Verified 12/13/20 21:18 [From Reglan] cramps nortriptyline [From Pamelor] AdvReac Chest Pain Verified 12/13/20 21:18 prasterone (DHEA) [From DHEA] AdvReac Chest Pain Verified 12/13/20 21:18 prochlorperazine AdvReac leg Verified 12/13/20 21:18 [From Compazine] cramping propranolol AdvReac Chest Pain Verified 12/13/20 21:18 pseudoephedrine HCl AdvReac face "beet Verified 12/13/20 21:18 [From NyQuil] red", elevated temp. quetiapine [From Seroquel] AdvReac leg Verified 12/13/20 21:18 cramping sumatriptan [From Imitrex] AdvReac migrane Verified 12/13/20 21:18 sumatriptan succinate AdvReac migrane Verified 12/13/20 21:18 [From Imitrex] topiramate [From Topamax] AdvReac "built up Verified 12/13/20 21:18 in system", had to be given something to reverse trazodone AdvReac "built up Verified 12/13/20 21:18 in system", had to be given something to reverse zolpidem tartrate AdvReac "Became Verified 12/13/20 21:18 [From Ambien] violent with no memory" zonisamide [From Zonegran] AdvReac inability Verified 12/13/20 21:18 to eat artificial sweetener AdvReac SEVERE Uncoded 12/13/20 21:18 MIGRAINE HEADACHE Review of Systems ROS Statement: Those systems with pertinent positive or pertinent negative responses have been documented in the HPI. ROS Other: All systems not noted in ROS Statement are negative. Past Medical History Past Medical History: Hyperlipidemia, Hypertension, Seizure Disorder Additional Past Medical History / Comment(s): Migraines, viral meningitis x3 as a child, 1995, 2000, chronic back pain, nerve blocks 08/2016 and 12/2016. Last seizure 10/10/2020, "ABSENT SEIZURES. HX TACHYCARDIA, GBS/CIPD, PTSD. History of Any Multi-Drug Resistant Organisms: None Reported Past Surgical History: Appendectomy, Section, Cholecystectomy, Hernia Repair, Hysterectomy, Orthopedic Surgery, Tonsillectomy, Tubal Ligation Additional Past Surgical History / Comment(s): Hiatal Hernia, umbilical hernia repair, left rotator cuff repair, bilateral knee scopes, pain clinic procedures-occipital nerve block. abd exploratory sx(endometreosis), 3 abd scopes 1981, 1989, 1991), lumbar puncture. EGD. nerve biopsy, salvalry gland biospy Past Anesthesia/Blood Transfusion Reactions: No Reported Reaction Additional Past Anesthesia/Blood Transfusion Reaction / Comment(s): Claustrophobic Past Psychological History: Anxiety, Bipolar, Panic Disorder, PTSD Smoking Status: Current every day smoker Past Alcohol Use History: None Reported Past Drug Use History: None Reported - Past Family History Mother Family Medical History: Cancer, Dementia, Diabetes Mellitus, GERD/Reflux, Hyperlipidemia, Hypertension, Thyroid Disorder Additional Family Medical History / Comment(s): Quad CABG, cardiac stents, toes ampuated. Father History Unknown: Yes Family Medical History: No Reported History General Exam Limitations: no limitations General appearance: alert, in no apparent distress Head exam: Present: atraumatic, normocephalic, normal inspection Eye exam: Present: normal appearance, PERRL, EOMI. Absent: scleral icterus, conjunctival injection, periorbital swelling Neck exam: Present: normal inspection Respiratory exam: Present: normal lung sounds bilaterally. Absent: respiratory distress, wheezes, rales, rhonchi, stridor Cardiovascular Exam: Present: regular rate, normal rhythm, normal heart sounds. Absent: systolic murmur, diastolic murmur, rubs, gallop, clicks GI/Abdominal exam: Present: soft, normal bowel sounds. Absent: distended, tenderness, guarding, rebound, rigid Extremities exam: Present: normal inspection, full ROM, normal capillary refill. Absent: tenderness, pedal edema, joint swelling, calf tenderness Neurological exam: Present: alert, oriented X3 Psychiatric exam: Present: normal affect, normal mood Skin exam: Present: warm, dry, intact, normal color. Absent: rash Course Vital Signs 12/13/20 21:16 Temperature 98.8 F Pulse Rate 111 H Respiratory 20 Rate Blood Pressure 137/93 O2 Sat by Pulse 96 Oximetry Medical Decision Making - Medical Decision Making 50-year-old female complaining of migraine type headache. 1 mg of Dilaudid, 50 g Benadryl, 4 mg Zofran, 500 mL of normal saline ordered. Patient is agreeable with discharge after these medications. Case discussed with Dr. Hein, patient discharge home. Disposition Clinical Impression: Headache, Migraine Disposition: HOME SELF-CARE Condition: Stable Instructions (If sedation given, give patient instructions): Acute Headache (ED) Additional Instructions: Please return to the Emergency Department if symptoms worsen or any other concerns. Follow-up with primary care neurologist as soon as possible. Increase oral fluids. Is patient prescribed a controlled substance at d/c from ED?: No Referrals: José Reece MD [Primary Care Provider] - 1-2 days Time of Disposition: 22:19
[2020-12-14 00:08] VITALS: BP 122/72; PULSE 98; TEMP 98.1
== END 2020-12-14 | disposition home or self-care (01) ==
LOC: EC 20:54
DX: G43.909 Migraine, unspecified, not intractable, without status migrainosus (principal); I10 Essential (primary) hypertension; E78.5 Hyperlipidemia, unspecified; F31.9 Bipolar disorder, unspecified; F41.9 Anxiety disorder, unspecified; G40.909 Epilepsy, unspecified, not intractable, without status epilepticus; F17.200 Nicotine dependence, unspecified, uncomplicated; Z82.49 Family history of ischemic heart disease and other diseases of the circulatory system; Z83.3 Family history of diabetes mellitus; Z83.49 Family history of other endocrine, nutritional and metabolic diseases; Z88.0 Allergy status to penicillin; Z88.1 Allergy status to other antibiotic agents; Z88.2 Allergy status to sulfonamides; Z88.5 Allergy status to narcotic agent; Z88.6 Allergy status to analgesic agent; Z88.8 Allergy status to other drugs, medicaments and biological substances
CPT/HCPCS: 96374; 96375 ×2; 96372; 99283; J1200; J2405; J1170

== ENCOUNTER 2020-12-15 10:47 | Emergency (ER) | payer OTHER ==
[2020-12-15 11:01] VITALS: BP 135/96; PULSE 103; RESP 18; TEMP 98.1
--- NOTE | 2020-12-15 11:47 | ED ---
General Adult HPI - General Chief complaint: Recheck/Abnormal Lab/Rx Stated complaint: sent by pcp/abd labs Time Seen by Provider: 12/15/20 11:21 Source: patient, family, RN notes reviewed, old records reviewed Mode of arrival: wheelchair Limitations: no limitations - History of Present Illness Initial comments: 50-year-old female presenting for evaluation of abnormal outpatient lab. Patient states that she had blood drawn and was found to be hypokalemic. She was sent to the emergency department for evaluation. She has had some vomiting and has been being evaluated for her hiatal hernia. She reports chronic migraine without any acute changes. - Related Data Home Medications Medication Instructions Recorded Confirmed Atorvastatin [Lipitor] 40 mg PO HS 04/02/17 11/15/20 Lacosamide [Vimpat] 100 mg PO BID 06/04/17 11/15/20 Galcanezumab-Gnlm [Emgality Pen] 120 mg SQ Q30D 04/28/20 11/15/20 amLODIPine [Norvasc] 5 mg PO DAILY 04/28/20 11/15/20 hydrOXYzine pamoate [Vistaril] 25 mg PO TID PRN 09/06/20 11/15/20 Albuterol Inhaler [Ventolin Hfa 1 - 2 puff INHALATION RT-Q6H PRN 11/15/20 11/15/20 Inhaler] Hyoscyamine Sulfate [Levsin] 0.125 mg PO Q4H 11/15/20 11/15/20 Omeprazole 40 mg PO HS 11/15/20 11/15/20 Previous Rx's Medication Instructions Recorded Butalb/APAP/Caff 50-325-40Mg 1 each PO Q4HR PRN #10 tab 11/17/20 [Fioricet 50-325-40] HYDROcodone/APAP 7.5-325MG [[place] 1 tab PO TID PRN #12 tab 11/17/20 7.5-325] Verapamil Sr [Isoptin Sr] 180 mg PO DAILY 30 Days #30 tab 11/17/20 Potassium Chloride ER [K-Dur 20] 20 meq PO BID 7 Days #14 tab 12/15/20 Allergies Allergy/AdvReac Type Severity Reaction Status Date / Time dihydroergotamine Allergy Unknown Unknown Verified 12/15/20 11:02 [From Migranal] gabapentin [From Neurontin] Allergy Itching/Swe Verified 12/15/20 11:02 lling latex Allergy Anaphylaxis Verified 12/15/20 11:02 lidocaine Allergy Unknown Verified 12/15/20 11:02 naproxen [From Naprosyn] Allergy Anaphylaxis Verified 12/15/20 11:02 Penicillins Allergy Anaphylaxis Verified 12/15/20 11:02 prednisone Allergy Swelling Verified 12/15/20 11:02 quetiapine fumarate Allergy Itching, Verified 12/15/20 11:02 [From Seroquel] leg cramps rofecoxib [From Vioxx] Allergy Itching, Verified 12/15/20 11:02 leg cramps terfenadine [From Seldane] Allergy Rash/Hives Verified 12/15/20 11:02 tramadol Allergy Nausea & Verified 12/15/20 11:02 Vomiting/LEG CRAMPS/HEART FLUTTERS calcium carbonate [From DHEA] AdvReac Chest Pain Verified 12/15/20 11:02 calcium phosphate,dibasic AdvReac Chest Pain Verified 12/15/20 11:02 [From DHEA] clindamycin AdvReac muscle Verified 12/15/20 11:02 cramps clonidine AdvReac fast Verified 12/15/20 11:02 heartbeat, migraine dextromethorphan HBr AdvReac face/neck Verified 12/15/20 11:02 [From NyQuil] flushing diazepam [From Valium] AdvReac Nausea & Verified 12/15/20 11:02 Vomiting divalproex sodium AdvReac Nausea & Verified 12/15/20 11:02 [From Depakote] Vomiting doxylamine [From NyQuil] AdvReac face "beet Verified 12/15/20 11:02 red", elevated temp. ibuprofen [From Motrin] AdvReac abdominal Verified 12/15/20 11:02 & muscle cramps indomethacin [From Indocin] AdvReac Abdominal Verified 12/15/20 11:02 Pain,N/V ketorolac tromethamine AdvReac "built up Verified 12/15/20 11:02 [From Toradol] in system", had to be given something to reverse lorazepam [From Ativan] AdvReac Nausea & Verified 12/15/20 11:02 Vomiting memantine [From Namenda] AdvReac Itching Verified 12/15/20 11:02 metoclopramide HCl AdvReac muscle Verified 12/15/20 11:02 [From Reglan] cramps nortriptyline [From Pamelor] AdvReac Chest Pain Verified 12/15/20 11:02 prasterone (DHEA) [From DHEA] AdvReac Chest Pain Verified 12/15/20 11:02 prochlorperazine AdvReac leg Verified 12/15/20 11:02 [From Compazine] cramping propranolol AdvReac Chest Pain Verified 12/15/20 11:02 pseudoephedrine HCl AdvReac face "beet Verified 12/15/20 11:02 [From NyQuil] red", elevated temp. quetiapine [From Seroquel] AdvReac leg Verified 12/15/20 11:02 cramping sumatriptan [From Imitrex] AdvReac migrane Verified 12/15/20 11:02 sumatriptan succinate AdvReac migrane Verified 12/15/20 11:02 [From Imitrex] topiramate [From Topamax] AdvReac "built up Verified 12/15/20 11:02 in system", had to be given something to reverse trazodone AdvReac "built up Verified 12/15/20 11:02 in system", had to be given something to reverse zolpidem tartrate AdvReac "Became Verified 12/15/20 11:02 [From Ambien] violent with no memory" zonisamide [From Zonegran] AdvReac inability Verified 12/15/20 11:02 to eat prosyn Allergy Itching Uncoded 12/15/20 11:02 artificial sweetener AdvReac SEVERE Uncoded 12/15/20 11:02 MIGRAINE HEADACHE Review of Systems ROS Statement: Those systems with pertinent positive or pertinent negative responses have been documented in the HPI. ROS Other: All systems not noted in ROS Statement are negative. Past Medical History Past Medical History: Hyperlipidemia, Hypertension, Seizure Disorder Additional Past Medical History / Comment(s): Migraines, viral meningitis x3 as a child, 1995, 2000, chronic back pain, nerve blocks 08/2016 and 12/2016. Last seizure 10/10/2020, "ABSENT SEIZURES. HX TACHYCARDIA, GBS/CIPD, PTSD. History of Any Multi-Drug Resistant Organisms: None Reported Past Surgical History: Appendectomy, Section, Cholecystectomy, Hernia Repair, Hysterectomy, Orthopedic Surgery, Tonsillectomy, Tubal Ligation Additional Past Surgical History / Comment(s): Hiatal Hernia, umbilical hernia repair, left rotator cuff repair, bilateral knee scopes, pain clinic procedures- occipital nerve block. abd exploratory sx(endometreosis), 3 abd scopes 1981, 1989, 1991), lumbar puncture. EGD. nerve biopsy, salvalry gland biospy Past Anesthesia/Blood Transfusion Reactions: No Reported Reaction Additional Past Anesthesia/Blood Transfusion Reaction / Comment(s): Claustrophobic Past Psychological History: Anxiety, Bipolar, Panic Disorder, PTSD Smoking Status: Current every day smoker Past Alcohol Use History: None Reported Past Drug Use History: None Reported - Past Family History Mother Family Medical History: Cancer, Dementia, Diabetes Mellitus, GERD/Reflux, Hyperlipidemia, Hypertension, Thyroid Disorder Additional Family Medical History / Comment(s): Quad CABG, cardiac stents, toes ampuated. Father History Unknown: Yes Family Medical History: No Reported History General Exam Limitations: no limitations Course Vital Signs 12/15/20 10:58 Temperature 98.1 F Pulse Rate 103 H Respiratory 18 Rate Blood Pressure 135/96 O2 Sat by Pulse 98 Oximetry EKG Findings - EKG Comments: EKG Findings:: EKG: Normal sinus rhythm, prolonged QT, rate of 100, VT interval 176, QRS duration 72, QTC 42 this is mildly prolonged. Medical Decision Making - Medical Decision Making Potassium is 2.9. Patient given 40 mEq of K-Lyte. She will be prescribed K Dur for the next one week and should follow with her primary care physician regarding recheck - Lab Data Result diagrams: 12/15/20 11:58 12/15/20 11:58 Lab Results 12/15/20 12/15/20 Range/Units 11:58 11:58 WBC 11.3 H (3.8-10.6) k/uL RBC 3.81 (3.80-5.40) m/uL Hgb 12.8 (11.4-16.0) gm/dL Hct 36.3 (34.0-46.0) % MCV 95.3 (80.0-100.0) fL MCH 33.4 (25.0-35.0) pg MCHC 35.1 (31.0-37.0) g/dL RDW 15.6 H (11.5-15.5) % Plt Count 254 (150-450) k/uL MPV 8.9 Neutrophils % 78 % Lymphocytes % 13 % Monocytes % 6 % Eosinophils % 1 % Basophils % 0 % Neutrophils # 8.8 H (1.3-7.7) k/uL Lymphocytes # 1.5 (1.0-4.8) k/uL Monocytes # 0.7 (0-1.0) k/uL Eosinophils # 0.1 (0-0.7) k/uL Basophils # 0.0 (0-0.2) k/uL Sodium 138 (137-145) mmol/L Potassium 2.9 L (3.5-5.1) mmol/L Chloride 102 (98-107) mmol/L Carbon Dioxide 30 (22-30) mmol/L Anion Gap 6 mmol/L BUN 4 L (7-17) mg/dL Creatinine 0.80 (0.52-1.04) mg/dL Est GFR (CKD-EPI)AfAm >90 (>60 ml/min/1.73 sqM) Est GFR (CKD-EPI)NonAf 88 (>60 ml/min/1.73 sqM) Glucose 105 H (74-99) mg/dL Calcium 8.2 L (8.4-10.2) mg/dL Magnesium 1.9 (1.6-2.3) mg/dL Total Bilirubin 0.4 (0.2-1.3) mg/dL AST 46 H (14-36) U/L ALT 25 (4-34) U/L Alkaline Phosphatase 146 H (38-126) U/L Total Protein 5.2 L (6.3-8.2) g/dL Albumin 2.7 L (3.5-5.0) g/dL Disposition Clinical Impression: Hypokalemia Disposition: HOME SELF-CARE Condition: Good Instructions (If sedation given, give patient instructions): Hypokalemia (ED) Prescriptions: Potassium Chloride ER [K-Dur 20] 20 meq PO BID 7 Days #14 tab Is patient prescribed a controlled substance at d/c from ED?: No Referrals: José Reece MD [Primary Care Provider] - 1-2 days Time of Disposition: 12:33
[2020-12-15 12:14] LABS: Basophils % (A) 0 %; Eosinophils # (A) 0.1 k/uL (0-0.7); Eosinophils % (A) 1 %; HCT 36.3 % (34.0-46.0); HGB 12.8 gm/dL (11.4-16.0); Lymphocytes # (A) 1.5 k/uL (1.0-4.8); Lymphocytes % (A) 13 %; MCH 33.4 pg (25.0-35.0); MCHC 35.1 g/dL (31.0-37.0); MCV 95.3 fL (80.0-100.0); Mean Platelet Volume 8.9; Monocytes # (A) 0.7 k/uL (0-1.0); Monocytes % (A) 6 %; Neutrophils # (A) 8.8 k/uL (1.3-7.7); Neutrophils % (A) 78 %; Platelet Count 254 k/uL (150-450); RBC 3.81 m/uL (3.80-5.40); RDW 15.6 % (11.5-15.5); WBC 11.3 k/uL (3.8-10.6)
[2020-12-15 12:27] LABS: ALT 25 U/L (4-34); AST 46 U/L (14-36); African American GFR (CKD) >90 (>60 ml/min/1.73 sqM); Albumin 2.7 g/dL (3.5-5.0); Alkaline Phosphatase 146 U/L (38-126); Anion Gap 6 mmol/L; Blood Urea Nitrogen 4 mg/dL (7-17); Calcium 8.2 mg/dL (8.4-10.2); Carbon Dioxide 30 mmol/L (22-30); Chloride 102 mmol/L (98-107); Glucose 105 mg/dL (74-99); Magnesium 1.9 mg/dL (1.6-2.3); Non-African American GFR(CKD) 88 (>60 ml/min/1.73 sqM); Potassium 2.9 mmol/L (3.5-5.1); Sodium 138 mmol/L (137-145); Total Bilirubin 0.4 mg/dL (0.2-1.3); Total Protein 5.2 g/dL (6.3-8.2)
[2020-12-15] MEDS ORDERED: HYDROmorphone 0.5 MG/0.5 ML SYRINGE IVP STA (12:31)
[2020-12-15] MEDS ORDERED: diphenhydrAMINE 50 MG/ML 1 ML VIAL IVP STA (12:31)
[2020-12-15] MEDS: POTASSIUM BICARBONATE/CIT AC 20 MEQ TABLET.EFF PO ONE ×2 (12:54→13:06)
[2020-12-15] MEDS ORDERED: POTASSIUM CHLORIDE ER 20 MEQ TAB.ER PO STA (13:05)
== END 2020-12-15 13:52 | disposition home or self-care (01) ==
LOC: EC 10:47
DX: E87.6 Hypokalemia (principal); I10 Essential (primary) hypertension; E78.5 Hyperlipidemia, unspecified; F41.9 Anxiety disorder, unspecified; F31.9 Bipolar disorder, unspecified; F43.12 Post-traumatic stress disorder, chronic; F17.200 Nicotine dependence, unspecified, uncomplicated; Z91.040 Latex allergy status; Z88.0 Allergy status to penicillin; Z88.6 Allergy status to analgesic agent; Z88.5 Allergy status to narcotic agent; Z88.1 Allergy status to other antibiotic agents; Z90.49 Acquired absence of other specified parts of digestive tract; Z90.710 Acquired absence of both cervix and uterus; Z90.89 Acquired absence of other organs; Z98.51 Tubal ligation status; Z79.899 Other long term (current) drug therapy; Z88.2 Allergy status to sulfonamides; Z88.8 Allergy status to other drugs, medicaments and biological substances
CPT/HCPCS: 99284; 96374; 96375; 36415; 93005; 80053; 83735; 85025; J1200; J1170

== ENCOUNTER 2020-12-21 11:47 | Emergency (ER) | payer OTHER ==
[2020-12-21] MEDS ORDERED: MORPHINE SULFATE 2 MG/ML SYRINGE IM STA (12:51)
[2020-12-21] MEDS ORDERED: ONDANSETRON 4 MG/2 ML VIAL IM STA (12:51)
--- NOTE | 2020-12-21 12:56 | ED ---
General Adult HPI - General Chief complaint: Headache Stated complaint: Headache Time Seen by Provider: 12/21/20 12:07 Source: patient, RN notes reviewed Mode of arrival: wheelchair Limitations: no limitations - History of Present Illness Initial comments: Patient is a pleasant 50-year-old female presenting to the emergency department for complaints of headache. Patient does have chronic similar headaches. This headache started 2 days ago. Not sudden onset. Patient is mostly right-sided. No new weakness or confusion. No fever. Patient does have photophobia. Patient states she does see a headache specialist at [facility]. There is trying to get her approved for a new medication. - Related Data Home Medications Medication Instructions Recorded Confirmed Lacosamide [Vimpat] 100 mg PO BID 06/04/17 12/15/20 Galcanezumab-Gnlm [Emgality Pen] 120 mg SQ Q30D 04/28/20 12/15/20 amLODIPine [Norvasc] 5 mg PO DAILY 04/28/20 12/15/20 Albuterol Inhaler [Ventolin Hfa 1 - 2 puff INHALATION RT-Q6H PRN 11/15/20 12/15/20 Inhaler] Butalb/APAP/Caff 50-325-40Mg 1 tab PO Q4HR PRN 12/15/20 12/15/20 [Fioricet 50-325-40] Omeprazole [PriLOSEC] 20 mg PO BID 12/15/20 12/15/20 Prazosin [Minipress] 2 mg PO HS 12/15/20 12/15/20 Previous Rx's Medication Instructions Recorded HYDROcodone/APAP 7.5-325MG [[place] 1 tab PO TID PRN #12 tab 11/17/20 7.5-325] Verapamil Sr [Isoptin Sr] 180 mg PO DAILY 30 Days #30 tab 11/17/20 Potassium Chloride ER [K-Dur 20] 20 meq PO BID 7 Days #14 tab 12/15/20 Allergies Allergy/AdvReac Type Severity Reaction Status Date / Time dihydroergotamine Allergy Unknown Unknown Verified 12/15/20 11:02 [From Migranal] gabapentin [From Neurontin] Allergy Itching/Swe Verified 12/15/20 11:02 lling latex Allergy Anaphylaxis Verified 12/15/20 11:02 lidocaine Allergy Unknown Verified 12/15/20 11:02 naproxen [From Naprosyn] Allergy Anaphylaxis Verified 12/15/20 11:02 Penicillins Allergy Anaphylaxis Verified 12/15/20 11:02 prednisone Allergy Swelling Verified 12/15/20 11:02 quetiapine fumarate Allergy Itching, Verified 12/15/20 11:02 [From Seroquel] leg cramps rofecoxib [From Vioxx] Allergy Itching, Verified 12/15/20 11:02 leg cramps terfenadine [From Seldane] Allergy Rash/Hives Verified 12/15/20 11:02 tramadol Allergy Nausea & Verified 12/15/20 11:02 Vomiting/LEG CRAMPS/HEART FLUTTERS calcium carbonate [From DHEA] AdvReac Chest Pain Verified 12/15/20 11:02 calcium phosphate,dibasic AdvReac Chest Pain Verified 12/15/20 11:02 [From DHEA] clindamycin AdvReac muscle Verified 12/15/20 11:02 cramps clonidine AdvReac fast Verified 12/15/20 11:02 heartbeat, migraine dextromethorphan HBr AdvReac face/neck Verified 12/15/20 11:02 [From NyQuil] flushing diazepam [From Valium] AdvReac Nausea & Verified 12/15/20 11:02 Vomiting divalproex sodium AdvReac Nausea & Verified 12/15/20 11:02 [From Depakote] Vomiting doxylamine [From NyQuil] AdvReac face "beet Verified 12/15/20 11:02 red", elevated temp. ibuprofen [From Motrin] AdvReac abdominal Verified 12/15/20 11:02 & muscle cramps indomethacin [From Indocin] AdvReac Abdominal Verified 12/15/20 11:02 Pain,N/V ketorolac tromethamine AdvReac "built up Verified 12/15/20 11:02 [From Toradol] in system", had to be given something to reverse lorazepam [From Ativan] AdvReac Nausea & Verified 12/15/20 11:02 Vomiting memantine [From Namenda] AdvReac Itching Verified 12/15/20 11:02 metoclopramide HCl AdvReac muscle Verified 12/15/20 11:02 [From Reglan] cramps nortriptyline [From Pamelor] AdvReac Chest Pain Verified 12/15/20 11:02 prasterone (DHEA) [From DHEA] AdvReac Chest Pain Verified 12/15/20 11:02 prochlorperazine AdvReac leg Verified 12/15/20 11:02 [From Compazine] cramping propranolol AdvReac Chest Pain Verified 12/15/20 11:02 pseudoephedrine HCl AdvReac face "beet Verified 12/15/20 11:02 [From NyQuil] red", elevated temp. quetiapine [From Seroquel] AdvReac leg Verified 12/15/20 11:02 cramping sumatriptan [From Imitrex] AdvReac migrane Verified 12/15/20 11:02 sumatriptan succinate AdvReac migrane Verified 12/15/20 11:02 [From Imitrex] topiramate [From Topamax] AdvReac "built up Verified 12/15/20 11:02 in system", had to be given something to reverse trazodone AdvReac "built up Verified 12/15/20 11:02 in system", had to be given something to reverse zolpidem tartrate AdvReac "Became Verified 12/15/20 11:02 [From Ambien] violent with no memory" zonisamide [From Zonegran] AdvReac inability Verified 12/15/20 11:02 to eat prosyn Allergy Itching Uncoded 12/15/20 11:02 artificial sweetener AdvReac SEVERE Uncoded 12/15/20 11:02 MIGRAINE HEADACHE Review of Systems ROS Statement: Those systems with pertinent positive or pertinent negative responses have been documented in the HPI. ROS Other: All systems not noted in ROS Statement are negative. Constitutional: Denies: fever Eyes: Reports: as per HPI ENT: Denies: ear pain Respiratory: Denies: cough Cardiovascular: Denies: chest pain Endocrine: Denies: fatigue Gastrointestinal: Reports: nausea. Denies: abdominal pain Genitourinary: Denies: dysuria Musculoskeletal: Denies: back pain Skin: Denies: rash Neurological: Reports: as per HPI, headache Past Medical History Past Medical History: Hyperlipidemia, Hypertension, Seizure Disorder Additional Past Medical History / Comment(s): Migraines, viral meningitis x3 as a child, 1995, 2000, chronic back pain, nerve blocks 08/2016 and 12/2016. Last seizure 10/10/2020, "ABSENT SEIZURES. HX TACHYCARDIA, GBS/CIPD, PTSD. History of Any Multi-Drug Resistant Organisms: None Reported Past Surgical History: Appendectomy, Section, Cholecystectomy, Hernia Repair, Hysterectomy, Orthopedic Surgery, Tonsillectomy, Tubal Ligation Additional Past Surgical History / Comment(s): Hiatal Hernia, umbilical hernia repair, left rotator cuff repair, bilateral knee scopes, pain clinic procedures- occipital nerve block. abd exploratory sx(endometreosis), 3 abd scopes 1981, 1989, 1991), lumbar puncture. EGD. nerve biopsy, salvalry gland biospy Past Anesthesia/Blood Transfusion Reactions: No Reported Reaction Additional Past Anesthesia/Blood Transfusion Reaction / Comment(s): Claustrophobic Past Psychological History: Anxiety, Bipolar, Panic Disorder, PTSD Smoking Status: Current every day smoker Past Alcohol Use History: None Reported Past Drug Use History: None Reported - Past Family History Mother Family Medical History: Cancer, Dementia, Diabetes Mellitus, GERD/Reflux, Hyperlipidemia, Hypertension, Thyroid Disorder Additional Family Medical History / Comment(s): Quad CABG, cardiac stents, toes ampuated. Father History Unknown: Yes Family Medical History: No Reported History General Exam Limitations: no limitations General appearance: alert, in no apparent distress Head exam: Present: normocephalic Eye exam: Present: normal appearance, PERRL, EOMI. Absent: nystagmus ENT exam: Present: normal oropharynx Neck exam: Present: normal inspection Respiratory exam: Present: normal lung sounds bilaterally Cardiovascular Exam: Present: regular rate, normal rhythm GI/Abdominal exam: Present: soft. Absent: tenderness Extremities exam: Present: normal inspection Neurological exam: Present: alert, CN II-XII intact, other (Patient states decreased sensation of the extremities which is chronic and unchanged for her.) Expanded Neurological exam: Present: protecting the airway Cranial nerves: EOM's Intact: Normal Motor strength exam: RUE: 5, LUE: 5, RLE: 5, LLE: 5 Eye Response: (4) open spontaneously Motor Response: (6) obeys commands Verbal Response: (5) oriented Psychiatric exam: Present: normal affect, normal mood Skin exam: Present: normal color Course Vital Signs 12/21/20 11:48 Temperature 98.5 F Pulse Rate 120 H Respiratory 19 Rate Blood Pressure 125/90 O2 Sat by Pulse 98 Oximetry Medical Decision Making - Medical Decision Making Discussion had with patient regarding multiple ER visits for chronic pain. Patient has had 35 ER visits this year. Patient is strongly advised to have better control of her chronic problems through primary care physician and neurologist. Patient is advised she will be limited on narcotic pain medication in the future for chronic pain. Disposition Clinical Impression: Headache Disposition: HOME SELF-CARE Condition: Stable Instructions (If sedation given, give patient instructions): Acute Headache (ED) Additional Instructions: Please do follow-up with your primary care physician and headache doctor in the next day or 2 for recheck. Please have primary care physician and your headache doctor review need for frequent ER visits. Return for change or worsening symptoms, fevers, weakness, or other concerns. Is patient prescribed a controlled substance at d/c from ED?: No Referrals: oJsé Reece MD [Primary Care Provider] - 1-2 days Time of Disposition: 12:55
[2020-12-21 13:33] VITALS: BP 122/82; PULSE 105; RESP 20; TEMP 98.4
== END 2020-12-21 13:31 | disposition home or self-care (01) ==
LOC: EC 11:47
DX: R51.9 Headache, unspecified (principal); I10 Essential (primary) hypertension; E78.5 Hyperlipidemia, unspecified; F31.9 Bipolar disorder, unspecified; G40.909 Epilepsy, unspecified, not intractable, without status epilepticus; F17.200 Nicotine dependence, unspecified, uncomplicated; Z79.51 Long term (current) use of inhaled steroids; Z79.899 Other long term (current) drug therapy; Z82.49 Family history of ischemic heart disease and other diseases of the circulatory system; Z83.3 Family history of diabetes mellitus; Z83.49 Family history of other endocrine, nutritional and metabolic diseases; Z88.0 Allergy status to penicillin; Z88.1 Allergy status to other antibiotic agents; Z88.2 Allergy status to sulfonamides; Z88.5 Allergy status to narcotic agent; Z88.6 Allergy status to analgesic agent; Z88.8 Allergy status to other drugs, medicaments and biological substances; Z90.49 Acquired absence of other specified parts of digestive tract
CPT/HCPCS: 99283; 96372 ×2; J2405; J2270; 99284

== ENCOUNTER 2020-12-30 18:43 | Emergency (ER) | payer OTHER ==
[2020-12-30 19:05] VITALS: RESP 18
[2020-12-30] MEDS ORDERED: ONDANSETRON 4 MG/2 ML VIAL IVP STA (21:33)
[2020-12-30] MEDS ORDERED: diphenhydrAMINE 50 MG/ML 1 ML VIAL IVP STA (21:33)
[2020-12-30] MEDS ORDERED: SODIUM CHLORIDE 0.9% 1,000 ML IV STA (21:33)
[2020-12-30] MEDS ORDERED: HYDROmorphone 1 MG/ML 1 ML SYRINGE IVP STA ×3 (21:33→23:40)
--- NOTE | 2020-12-30 21:40 | ED ---
Headache HPI - General Chief Complaint: Headache Stated Complaint: Migraine Time Seen by Provider: 12/30/20 21:03 Source: patient, family, RN notes reviewed, old records reviewed Mode of arrival: wheelchair Limitations: no limitations - History of Present Illness Initial Comments: 50-year-old well-appearing female alert and oriented 4, presents to the emergency room with a headache for the past 5 days. Patient has been in the emergency room multiple times for similar headaches. She states that this is a headache similar to her previous headaches. She states that she sees a specialist and they have been working with her to try to determine which medications were past help her with her chronic headaches. She states that the pain is behind her right eye and that is normal for her headaches. Patient states that they have done occipital nerve blocks injections into the trapezius muscles in the past with no relief. She does complain of nausea and vomiting. She states that when she comes to the emergency room she normally gets Benadryl, Zofran and Dilaudid with IV fluids. She has a central line to her left chest for access. 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 MD Complaint: headache -: days(s) (5) Onset Description: gradual Location: right (I), diffuse Severity: severe Severity scale (1-10): 8 Quality: constant, similar to previous headaches Consistency: constant Improves With: nothing Worsens With: light Associated Symptoms: nausea, photophobia - Related Data Home Medications Medication Instructions Recorded Confirmed Lacosamide [Vimpat] 100 mg PO BID 06/04/17 12/15/20 Galcanezumab-Gnlm [Emgality Pen] 120 mg SQ Q30D 04/28/20 12/15/20 amLODIPine [Norvasc] 5 mg PO DAILY 04/28/20 12/15/20 Albuterol Inhaler [Ventolin Hfa 1 - 2 puff INHALATION RT-Q6H PRN 11/15/20 12/15/20 Inhaler] Butalb/APAP/Caff 50-325-40Mg 1 tab PO Q4HR PRN 12/15/20 12/15/20 [Fioricet 50-325-40] Omeprazole [PriLOSEC] 20 mg PO BID 12/15/20 12/15/20 Prazosin [Minipress] 2 mg PO HS 12/15/20 12/15/20 Previous Rx's Medication Instructions Recorded HYDROcodone/APAP 7.5-325MG [[place] 1 tab PO TID PRN #12 tab 11/17/20 7.5-325] Verapamil Sr [Isoptin Sr] 180 mg PO DAILY 30 Days #30 tab 11/17/20 Potassium Chloride ER [K-Dur 20] 20 meq PO BID 7 Days #14 tab 12/15/20 Allergies Allergy/AdvReac Type Severity Reaction Status Date / Time dihydroergotamine Allergy Unknown Unknown Verified 12/30/20 19:03 [From Migranal] gabapentin [From Neurontin] Allergy Itching/Swe Verified 12/30/20 19:03 lling latex Allergy Anaphylaxis Verified 12/30/20 19:03 lidocaine Allergy Unknown Verified 12/30/20 19:03 naproxen [From Naprosyn] Allergy Anaphylaxis Verified 12/30/20 19:03 Penicillins Allergy Anaphylaxis Verified 12/30/20 19:03 prednisone Allergy Swelling Verified 12/30/20 19:03 quetiapine fumarate Allergy Itching, Verified 12/30/20 19:03 [From Seroquel] leg cramps rofecoxib [From Vioxx] Allergy Itching, Verified 12/30/20 19:03 leg cramps terfenadine [From Seldane] Allergy Rash/Hives Verified 12/30/20 19:03 tramadol Allergy Nausea & Verified 12/30/20 19:03 Vomiting/LEG CRAMPS/HEART FLUTTERS calcium carbonate [From DHEA] AdvReac Chest Pain Verified 12/30/20 19:03 calcium phosphate,dibasic AdvReac Chest Pain Verified 12/30/20 19:03 [From DHEA] clindamycin AdvReac muscle Verified 12/30/20 19:03 cramps clonidine AdvReac fast Verified 12/30/20 19:03 heartbeat, migraine dextromethorphan HBr AdvReac face/neck Verified 12/30/20 19:03 [From NyQuil] flushing diazepam [From Valium] AdvReac Nausea & Verified 12/30/20 19:03 Vomiting divalproex sodium AdvReac Nausea & Verified 12/30/20 19:03 [From Depakote] Vomiting doxylamine [From NyQuil] AdvReac face "beet Verified 12/30/20 19:03 red", elevated temp. ibuprofen [From Motrin] AdvReac abdominal Verified 12/30/20 19:03 & muscle cramps indomethacin [From Indocin] AdvReac Abdominal Verified 12/30/20 19:03 Pain,N/V ketorolac tromethamine AdvReac "built up Verified 12/30/20 19:03 [From Toradol] in system", had to be given something to reverse lorazepam [From Ativan] AdvReac Nausea & Verified 12/30/20 19:03 Vomiting memantine [From Namenda] AdvReac Itching Verified 12/30/20 19:03 metoclopramide HCl AdvReac muscle Verified 12/30/20 19:03 [From Reglan] cramps nortriptyline [From Pamelor] AdvReac Chest Pain Verified 12/30/20 19:03 prasterone (DHEA) [From DHEA] AdvReac Chest Pain Verified 12/30/20 19:03 prochlorperazine AdvReac leg Verified 12/30/20 19:03 [From Compazine] cramping propranolol AdvReac Chest Pain Verified 12/30/20 19:03 pseudoephedrine HCl AdvReac face "beet Verified 12/30/20 19:03 [From NyQuil] red", elevated temp. quetiapine [From Seroquel] AdvReac leg Verified 12/30/20 19:03 cramping sumatriptan [From Imitrex] AdvReac migrane Verified 12/30/20 19:03 sumatriptan succinate AdvReac migrane Verified 12/30/20 19:03 [From Imitrex] topiramate [From Topamax] AdvReac "built up Verified 12/30/20 19:03 in system", had to be given something to reverse trazodone AdvReac "built up Verified 12/30/20 19:03 in system", had to be given something to reverse zolpidem tartrate AdvReac "Became Verified 12/30/20 19:03 [From Ambien] violent with no memory" zonisamide [From Zonegran] AdvReac inability Verified 12/30/20 19:03 to eat prosyn Allergy Itching Uncoded 12/30/20 19:03 artificial sweetener AdvReac SEVERE Uncoded 12/30/20 19:03 MIGRAINE HEADACHE Review of Systems ROS Statement: Those systems with pertinent positive or pertinent negative responses have been documented in the HPI. ROS Other: All systems not noted in ROS Statement are negative. Past Medical History Past Medical History: Hyperlipidemia, Hypertension, Seizure Disorder Additional Past Medical History / Comment(s): Migraines, viral meningitis x3 as a child, 1995, 2000, chronic back pain, nerve blocks 08/2016 and 12/2016. Last seizure 10/10/2020, "ABSENT SEIZURES. HX TACHYCARDIA, GBS/CIPD, PTSD. History of Any Multi-Drug Resistant Organisms: None Reported Past Surgical History: Appendectomy, Section, Cholecystectomy, Hernia Repair, Hysterectomy, Orthopedic Surgery, Tonsillectomy, Tubal Ligation Additional Past Surgical History / Comment(s): Hiatal Hernia, umbilical hernia repair, left rotator cuff repair, bilateral knee scopes, pain clinic procedures- occipital nerve block. abd exploratory sx(endometreosis), 3 abd scopes 1981, 1989, 1991), lumbar puncture. EGD. nerve biopsy, salvalry gland biospy Past Anesthesia/Blood Transfusion Reactions: No Reported Reaction Additional Past Anesthesia/Blood Transfusion Reaction / Comment(s): Claustrophobic Past Psychological History: Anxiety, Bipolar, Panic Disorder, PTSD Smoking Status: Current every day smoker Past Alcohol Use History: None Reported Past Drug Use History: None Reported - Past Family History Mother Family Medical History: Cancer, Dementia, Diabetes Mellitus, GERD/Reflux, Hyperlipidemia, Hypertension, Thyroid Disorder Additional Family Medical History / Comment(s): Quad CABG, cardiac stents, toes ampuated. Father History Unknown: Yes Family Medical History: No Reported History General Exam Limitations: no limitations General appearance: alert, in no apparent distress Head exam: Present: atraumatic, normocephalic, normal inspection Eye exam: Present: normal appearance, EOMI. Absent: conjunctival injection, periorbital swelling ENT exam: Present: normal exam, mucous membranes moist Neck exam: Present: normal inspection, full ROM. Absent: tenderness, meningismus, lymphadenopathy Respiratory exam: Present: normal lung sounds bilaterally. Absent: respiratory distress, wheezes, rales, rhonchi, stridor Cardiovascular Exam: Present: tachycardia GI/Abdominal exam: Present: soft, normal bowel sounds. Absent: distended, tenderness, guarding, rebound, rigid Extremities exam: Present: full ROM, normal capillary refill. Absent: tenderness, pedal edema, calf tenderness Neurological exam: Present: alert, oriented X3 Expanded Patient oriented to: Present: person, place, time Speech: Present: fluid speech Motor strength exam: RUE: 5, LUE: 5, RLE: 5, LLE: 5 Eye Response: (4) open spontaneously Motor Response: (6) obeys commands Verbal Response: (5) oriented Mauri Total: 15 Psychiatric exam: Present: normal affect, normal mood Skin exam: Present: warm, dry, intact, normal color. Absent: rash, cyanosis, diaphoretic, petechiae, pallor Course Vital Signs 12/30/20 12/30/20 12/30/20 19:03 22:50 23:36 Temperature 98.7 F Pulse Rate 105 H 93 95 Respiratory 18 18 18 Rate Blood Pressure 122/82 156/114 147/101 O2 Sat by Pulse 98 98 96 Oximetry Medical Decision Making - Medical Decision Making Patient presents to the emergency room with chronic migraine headaches. States that the pain is just like her previous migraine headaches. She has no nuchal rigidity or fevers. She states that her medications are not working for her. She has been seeing a pain specialist and neurologist. She was requesting specifically Benadryl, Zofran and Dilaudid and IV fluids. She was given these medications and was agreaable to being discharged home. Case discussed with Dr. Mclaughlin Disposition Clinical Impression: Headache Disposition: HOME SELF-CARE Condition: Good Instructions (If sedation given, give patient instructions): Acute Headache (ED) Additional Instructions: Continue previously prescribed medications. Follow up with your primary care doctor and painter apprentice for continuation of care. Return to the emergency room with any new or worsening symptoms. Is patient prescribed a controlled substance at d/c from ED?: No Referrals: José Reece MD [Primary Care Provider] - 1-2 days Time of Disposition: 22:14
[2020-12-30 23:37] VITALS: PULSE 95
[2020-12-31 00:15] VITALS: BP 148/98; TEMP 97.6
== END 2020-12-30 23:48 | disposition home or self-care (01) ==
LOC: EC 18:43
DX: R51.9 Headache, unspecified (principal); E78.5 Hyperlipidemia, unspecified; I10 Essential (primary) hypertension; G40.909 Epilepsy, unspecified, not intractable, without status epilepticus; F43.10 Post-traumatic stress disorder, unspecified; F31.9 Bipolar disorder, unspecified; F41.0 Panic disorder [episodic paroxysmal anxiety]; F17.200 Nicotine dependence, unspecified, uncomplicated
CPT/HCPCS: 99283; 96374; 96375 ×2; 96376; 96361; J1200; J2405; J1642; J1170

== ENCOUNTER → 2021-01-05 | Outpatient (CLI) | payer OTHER ==
--- NOTE | 2021-01-05 10:33 | FL ---
EXAMINATION TYPE: FL barium swallow DATE OF EXAM: 01/05/2021 COMPARISON: NONE HISTORY: Dysphasia TECHNIQUE: Fluoroscopy. FINDINGS: Single contrast water soluble technique was utilized to evaluate the esophagus. The esophagus dilates to normal caliber has normal contour of the gastroesophageal junction. The gastroesophageal junction opens to normal caliber. No intraluminal or extramural defects are evident. There is complete stripp ing there is soft tissue bolus in the horizontal drinking position. Fluoroscopy time 11 seconds Number of images: 41 IMPRESSION: 1. Normal-appearing single contrast esophagram
== END | disposition home or self-care (01) ==
LOC: RADUSWWP 07:52
PROVIDERS: ATTEND Surgery
DX: R47.02 Dysphasia (principal)
CPT/HCPCS: 74220; Q9967

== ENCOUNTER 2021-01-08 10:30 | Day surgery (SDC) | payer OTHER ==
[2021-01-04 11:05] VITALS: BMI 29.5
[2021-01-08 13:51] VITALS: TEMP 97.8
[2021-01-08] MEDS ORDERED: LACTATED RINGERS 1,000 ML IV ONE (13:52)
--- NOTE | 2021-01-08 15:48 | P.GSHP ---
History of Present Illness H&P Date: 01/08/21 Chief Complaint: Dysphagia A 42-year-old female with complaints of dysphagia. She feels that food is sticking in her cervical esophagus. Patient recent esophagram is normal. She presents today for EGD. Past Medical History Past Medical History: Hyperlipidemia, Hypertension, Seizure Disorder Additional Past Medical History / Comment(s): Migraines, viral meningitis x3 as a child, 1995, 2000, chronic back pain, nerve blocks 08/2016 and 12/2016. Last seizure 10/10/2020, "ABSENT SEIZURES. HX TACHYCARDIA, PTSD. GUILLIAN BARRE SYNDROME, PATIENT IS WHEELCHAIR BOUND -IS ABLE TO TRANSFER HERSELF -NO LIFT NEEDED. History of Any Multi-Drug Resistant Organisms: None Reported Past Surgical History: Appendectomy, Section, Cholecystectomy, Hernia Repair, Hysterectomy, Orthopedic Surgery, Tonsillectomy, Tubal Ligation Additional Past Surgical History / Comment(s): Hiatal Hernia, umbilical hernia repair, left rotator cuff repair, bilateral knee scopes, pain clinic procedures- occipital nerve block. abd exploratory sx(endometreosis), 3 abd scopes 1981, 1989, 1991), lumbar puncture. EGD. nerve biopsy, salvalry gland biospy,PORT REMOVED FROM RIGHT SIDE AND LEFT SIDE Past Anesthesia/Blood Transfusion Reactions: No Reported Reaction Additional Past Anesthesia/Blood Transfusion Reaction / Comment(s): Claustrophobic Smoking Status: Current every day smoker - Past Family History Mother Family Medical History: Cancer, Dementia, Diabetes Mellitus, GERD/Reflux, Hyperlipidemia, Hypertension, Thyroid Disorder Additional Family Medical History / Comment(s): Quad CABG, cardiac stents, toes ampuated and left leg amputated Father History Unknown: Yes Family Medical History: No Reported History Medications and Allergies Home Medications Medication Instructions Recorded Confirmed Type Lacosamide [Vimpat] 100 mg PO BID 06/04/17 01/04/21 History Galcanezumab-Gnlm [Emgality Pen] 120 mg SQ Q30D 04/28/20 01/04/21 History amLODIPine [Norvasc] 5 mg PO DAILY 04/28/20 01/04/21 History Albuterol Inhaler [Ventolin Hfa 1 - 2 puff INHALATION RT-Q6H PRN 11/15/20 01/04/21 History Inhaler] HYDROcodone/APAP 7.5-325MG [[place] 1 tab PO TID PRN #12 tab 11/17/20 01/04/21 Rx 7.5-325] Omeprazole [PriLOSEC] 20 mg PO BID 12/15/20 01/04/21 History Potassium Chloride ER [K-Dur 20] 20 meq PO BID 7 Days #14 tab 12/15/20 01/04/21 Rx Thiamine [Vitamin B-1] 100 mg PO DAILY 01/04/21 01/04/21 History Allergies Allergy/AdvReac Type Severity Reaction Status Date / Time dihydroergotamine Allergy Unknown Unknown Verified 01/04/21 10:26 [From Migranal] gabapentin [From Neurontin] Allergy Itching/Swe Verified 01/04/21 10:26 lling latex Allergy Anaphylaxis Verified 01/04/21 10:26 naproxen [From Naprosyn] Allergy Anaphylaxis Verified 01/04/21 10:26 Penicillins Allergy Anaphylaxis Verified 01/04/21 10:26 prednisone Allergy Swelling Verified 01/04/21 10:26 quetiapine fumarate Allergy Itching, Verified 01/04/21 10:26 [From Seroquel] leg cramps rofecoxib [From Vioxx] Allergy Itching, Verified 01/04/21 10:26 leg cramps terfenadine [From Seldane] Allergy Rash/Hives Verified 01/04/21 10:26 tramadol Allergy Nausea & Verified 01/04/21 10:26 Vomiting/LEG CRAMPS/HEART FLUTTERS calcium carbonate [From DHEA] AdvReac Chest Pain Verified 01/04/21 10:26 calcium phosphate,dibasic AdvReac Chest Pain Verified 01/04/21 10:26 [From DHEA] clindamycin AdvReac muscle Verified 01/04/21 10:26 cramps clonidine AdvReac fast Verified 01/04/21 10:26 heartbeat, migraine dextromethorphan HBr AdvReac face/neck Verified 01/04/21 10:26 [From NyQuil] flushing diazepam [From Valium] AdvReac Nausea & Verified 01/04/21 10:26 Vomiting divalproex sodium AdvReac Nausea & Verified 01/04/21 10:26 [From Depakote] Vomiting doxylamine [From NyQuil] AdvReac face "beet Verified 01/04/21 10:26 red", elevated temp. ibuprofen [From Motrin] AdvReac abdominal Verified 01/04/21 10:26 & muscle cramps indomethacin [From Indocin] AdvReac Abdominal Verified 01/04/21 10:26 Pain,N/V ketorolac tromethamine AdvReac "built up Verified 01/04/21 10:26 [From Toradol] in system", had to be given something to reverse lorazepam [From Ativan] AdvReac Nausea & Verified 01/04/21 10:26 Vomiting memantine [From Namenda] AdvReac Itching Verified 01/04/21 10:26 metoclopramide HCl AdvReac muscle Verified 01/04/21 10:26 [From Reglan] cramps nortriptyline [From Pamelor] AdvReac Chest Pain Verified 01/04/21 10:26 prasterone (DHEA) [From DHEA] AdvReac Chest Pain Verified 01/04/21 10:26 prochlorperazine AdvReac leg Verified 01/04/21 10:26 [From Compazine] cramping propranolol AdvReac Chest Pain Verified 01/04/21 10:26 pseudoephedrine HCl AdvReac face "beet Verified 01/04/21 10:26 [From NyQuil] red", elevated temp. quetiapine [From Seroquel] AdvReac leg Verified 01/04/21 10:26 cramping sumatriptan [From Imitrex] AdvReac migrane Verified 01/04/21 10:26 sumatriptan succinate AdvReac migrane Verified 01/04/21 10:26 [From Imitrex] topiramate [From Topamax] AdvReac "built up Verified 01/04/21 10:26 in system", had to be given something to reverse trazodone AdvReac "built up Verified 01/04/21 10:26 in system", had to be given something to reverse zolpidem tartrate AdvReac "Became Verified 01/04/21 10:26 [From Ambien] violent with no memory" zonisamide [From Zonegran] AdvReac inability Verified 01/04/21 10:26 to eat prosyn Allergy Itching Uncoded 01/04/21 10:26 artificial sweetener AdvReac SEVERE Uncoded 01/04/21 10:26 MIGRAINE HEADACHE Surgical - Exam Vital Signs Temp Pulse Resp BP Pulse Ox 97.8 F 112 H 18 154/86 97 01/08/21 13:51 01/08/21 13:51 01/08/21 13:51 01/08/21 13:51 01/08/21 13:51 - General well developed, well nourished, no distress - Eyes PERRL - ENT normal pinna - Neck no masses - Respiratory normal expansion - Cardiovascular Rhythm: regular - Abdomen Abdomen: soft, non tender Assessment and Plan Assessment: Dysphagia. We'll perform EGD.
[2021-01-08] MEDS ORDERED: PROPOFOL 10 MG/ML 20 ML VIAL IV ONE (15:50)
--- NOTE | 2021-01-08 16:01 | P.OP ---
Date of Procedure: 01/08/21 Preoperative Diagnosis: Cervical dysphagia Postoperative Diagnosis: Normal EGD Procedure(s) Performed: EGD Anesthesia: MAC Surgeon: Dean Trejo Pathology: other (Antrum) Condition: stable Disposition: PACU Description of Procedure: The patient's placed on the endoscopy table in the lateral position. He received IV sedation. The gastroscope placed oropharynx passed in the esophagus and then into the stomach. Scope was placed through the pylorus. The first and second portion duodenum appeared normal. Scope summer back the antrum this. Mildly inflamed. A biopsies performed. The scope was then retroflexed and the remainder of the stomach appeared normal. There was no significant hiatal he rnia. The GE junction was at 40 cm. There is no unsteady obstruction of the GE junction. The distal esophagus. Normal. The proximal esophagus appeared normal scope was withdrawn for patient.
[2021-01-08 16:05] VITALS: RESP 16
[2021-01-08 16:23] VITALS: BP 123/72; PULSE 100
== END 2021-01-08 16:33 ==
LOC: ORWHC2ENDO 10:30
PROVIDERS: ATTEND Surgery
DX: R13.19 Other dysphagia (principal); E78.5 Hyperlipidemia, unspecified; F17.200 Nicotine dependence, unspecified, uncomplicated; G40.909 Epilepsy, unspecified, not intractable, without status epilepticus; I10 Essential (primary) hypertension; Z79.899 Other long term (current) drug therapy; Z82.49 Family history of ischemic heart disease and other diseases of the circulatory system; Z83.3 Family history of diabetes mellitus; Z83.49 Family history of other endocrine, nutritional and metabolic diseases; Z88.0 Allergy status to penicillin; Z88.1 Allergy status to other antibiotic agents; Z88.2 Allergy status to sulfonamides; Z88.5 Allergy status to narcotic agent; Z88.6 Allergy status to analgesic agent; Z88.8 Allergy status to other drugs, medicaments and biological substances; Z90.49 Acquired absence of other specified parts of digestive tract; Z91.040 Latex allergy status; Z99.3 Dependence on wheelchair
CPT/HCPCS: 43239; J1642; J2704; 88305

== ENCOUNTER 2021-01-11 20:00 | Emergency (ER) | payer OTHER ==
[2021-01-11 20:41] VITALS: TEMP 98.4
[2021-01-11] MEDS ORDERED: diphenhydrAMINE 50 MG/ML 1 ML VIAL IM STA (22:00)
[2021-01-11] MEDS ORDERED: HYDROmorphone 1 MG/ML 1 ML SYRINGE IM STA (22:00)
--- NOTE | 2021-01-11 22:28 | CT ---
EXAMINATION TYPE: CT brain wo con DATE OF EXAM: 01/11/2021 COMPARISON: 11/15/2020 HISTORY: fell and hit head CT DLP: 1084.4 mGycm Automated exposure control for dose reduction was used. Ventricles and sulci appear normal. There is no mass effect nor midline shift. There is no sign of in tracranial hemorrhage. The calvarium is intact. Skull base is intact. There is normal aeration of the mastoid sinuses. IMPRESSION: Negative CT scan of the brain. No change.
--- NOTE | 2021-01-11 23:07 | ED ---
Headache HPI - General Chief Complaint: Headache Stated Complaint: Fall-Headache Time Seen by Provider: 01/11/21 21:06 Mode of arrival: wheelchair Limitations: no limitations - History of Present Illness Initial Comments: 50 year-old female patient presents to the emergency department for evaluation of headache, light sensitivity, and nausea. Patient states she has had migraine headache for the last two days. States that today she was transferring from her motorized wheelchair when she fell and struck her forehead on the desk. States she was unconscious for an unknown amount of time. Denies any blurred or double vision. Denies any neck or back pain. Denies any other injuries. She states she did take her home medications without relief. - Related Data Home Medications Medication Instructions Recorded Confirmed Lacosamide [Vimpat] 100 mg PO BID 06/04/17 01/04/21 Galcanezumab-Gnlm [Emgality Pen] 120 mg SQ Q30D 04/28/20 01/04/21 amLODIPine [Norvasc] 5 mg PO DAILY 04/28/20 01/04/21 Albuterol Inhaler [Ventolin Hfa 1 - 2 puff INHALATION RT-Q6H PRN 11/15/20 01/04/21 Inhaler] Omeprazole [PriLOSEC] 20 mg PO BID 12/15/20 01/04/21 Thiamine [Vitamin B-1] 100 mg PO DAILY 01/04/21 01/04/21 Previous Rx's Medication Instructions Recorded HYDROcodone/APAP 7.5-325MG [[place] 1 tab PO TID PRN #12 tab 11/17/20 7.5-325] Potassium Chloride ER [K-Dur 20] 20 meq PO BID 7 Days #14 tab 12/15/20 Allergies Allergy/AdvReac Type Severity Reaction Status Date / Time dihydroergotamine Allergy Unknown Unknown Verified 01/04/21 10:26 [From Migranal] gabapentin [From Neurontin] Allergy Itching/Swe Verified 01/04/21 10:26 lling latex Allergy Anaphylaxis Verified 01/11/21 20:40 naproxen [From Naprosyn] Allergy Anaphylaxis Verified 01/11/21 20:40 Penicillins Allergy Anaphylaxis Verified 01/11/21 20:40 prednisone Allergy Swelling Verified 01/11/21 20:40 quetiapine fumarate Allergy Itching, Verified 01/11/21 20:40 [From Seroquel] leg cramps rofecoxib [From Vioxx] Allergy Itching, Verified 01/11/21 20:40 leg cramps terfenadine [From Seldane] Allergy Rash/Hives Verified 01/11/21 20:40 tramadol Allergy Nausea & Verified 01/11/21 20:40 Vomiting/LEG CRAMPS/HEART FLUTTERS calcium carbonate [From DHEA] AdvReac Chest Pain Verified 01/11/21 20:40 calcium phosphate,dibasic AdvReac Chest Pain Verified 01/11/21 20:40 [From DHEA] clindamycin AdvReac muscle Verified 01/11/21 20:40 cramps clonidine AdvReac fast Verified 01/11/21 20:40 heartbeat, migraine dextromethorphan HBr AdvReac face/neck Verified 01/11/21 20:40 [From NyQuil] flushing diazepam [From Valium] AdvReac Nausea & Verified 01/11/21 20:40 Vomiting divalproex sodium AdvReac Nausea & Verified 01/11/21 20:40 [From Depakote] Vomiting doxylamine [From NyQuil] AdvReac face "beet Verified 01/11/21 20:40 red", elevated temp. ibuprofen [From Motrin] AdvReac abdominal Verified 01/11/21 20:40 & muscle cramps indomethacin [From Indocin] AdvReac Abdominal Verified 01/11/21 20:40 Pain,N/V ketorolac tromethamine AdvReac "built up Verified 01/11/21 20:40 [From Toradol] in system", had to be given something to reverse lorazepam [From Ativan] AdvReac Nausea & Verified 01/11/21 20:40 Vomiting memantine [From Namenda] AdvReac Itching Verified 01/11/21 20:40 metoclopramide HCl AdvReac muscle Verified 01/11/21 20:40 [From Reglan] cramps nortriptyline [From Pamelor] AdvReac Chest Pain Verified 01/11/21 20:40 prasterone (DHEA) [From DHEA] AdvReac Chest Pain Verified 01/11/21 20:40 prochlorperazine AdvReac leg Verified 01/11/21 20:40 [From Compazine] cramping propranolol AdvReac Chest Pain Verified 01/11/21 20:40 pseudoephedrine HCl AdvReac face "beet Verified 01/11/21 20:40 [From NyQuil] red", elevated temp. quetiapine [From Seroquel] AdvReac leg Verified 01/11/21 20:40 cramping sumatriptan [From Imitrex] AdvReac migrane Verified 01/11/21 20:40 sumatriptan succinate AdvReac migrane Verified 01/11/21 20:40 [From Imitrex] topiramate [From Topamax] AdvReac "built up Verified 01/11/21 20:40 in system", had to be given something to reverse trazodone AdvReac "built up Verified 01/11/21 20:40 in system", had to be given something to reverse zolpidem tartrate AdvReac "Became Verified 01/11/21 20:40 [From Ambien] violent with no memory" zonisamide [From Zonegran] AdvReac inability Verified 01/11/21 20:40 to eat prosyn Allergy Itching Uncoded 01/11/21 20:40 artificial sweetener AdvReac SEVERE Uncoded 01/11/21 20:40 MIGRAINE HEADACHE Review of Systems ROS Statement: Those systems with pertinent positive or pertinent negative responses have been documented in the HPI. ROS Other: All systems not noted in ROS Statement are negative. Past Medical History Past Medical History: Hyperlipidemia, Hypertension, Seizure Disorder Additional Past Medical History / Comment(s): Migraines, viral meningitis x3 as a child, 1995, 2000, chronic back pain, nerve blocks 08/2016 and 12/2016. Last seizure 10/10/2020, "ABSENT SEIZURES. HX TACHYCARDIA, GBS/CIPD, PTSD. History of Any Multi-Drug Resistant Organisms: None Reported Past Surgical History: Appendectomy, Section, Cholecystectomy, Hernia Repair, Hysterectomy, Orthopedic Surgery, Tonsillectomy, Tubal Ligation Additional Past Surgical History / Comment(s): Hiatal Hernia, umbilical hernia repair, left rotator cuff repair, bilateral knee scopes, pain clinic procedures- occipital nerve block. abd exploratory sx(endometreosis), 3 abd scopes 1981, 1989, 1991), lumbar puncture. EGD. nerve biopsy, salvalry gland biospy Past Anesthesia/Blood Transfusion Reactions: No Reported Reaction Additional Past Anesthesia/Blood Transfusion Reaction / Comment(s): Claustrophobic Past Psychological History: Anxiety, Bipolar, Panic Disorder, PTSD Smoking Status: Current every day smoker - Past Family History Mother Family Medical History: Cancer, Dementia, Diabetes Mellitus, GERD/Reflux, Hyperlipidemia, Hypertension, Thyroid Disorder Additional Family Medical History / Comment(s): Quad CABG, cardiac stents, toes ampuated and left leg amputated Father History Unknown: Yes Family Medical History: No Reported History General Exam Limitations: no limitations General appearance: alert, in no apparent distress, other (This is a well- developed, well-nourished adult female patient in no acute distress. Vital signs upon presentation temperature 98.4F, pulse 65, respirations 16, blood pressure 141/96, pulse ox 100% on room air.) Head exam: Present: atraumatic, normocephalic, normal inspection Eye exam: Present: normal appearance, PERRL, EOMI. Absent: scleral icterus, conjunctival injection, nystagmus, periorbital swelling ENT exam: Present: normal exam, normal oropharynx, mucous membranes moist Respiratory exam: Present: normal lung sounds bilaterally. Absent: respiratory distress, wheezes, rales, rhonchi, stridor Cardiovascular Exam: Present: regular rate, normal rhythm, normal heart sounds. Absent: systolic murmur, diastolic murmur, rubs, gallop, clicks GI/Abdominal exam: Present: soft, normal bowel sounds. Absent: distended, tenderness, guarding, rebound, rigid Neurological exam: Present: alert, oriented X3, CN II-XII intact, other (strength in the upper extremities is 4/5. ) Psychiatric exam: Present: normal affect, normal mood Skin exam: Present: warm, dry, intact, normal color. Absent: rash Course Vital Signs 01/11/21 01/11/21 20:36 23:44 Temperature 98.4 F Pulse Rate 65 78 Respiratory 16 18 Rate Blood Pressure 141/96 118/87 O2 Sat by Pulse 100 97 Oximetry Medical Decision Making - Medical Decision Making 42-year-old female patient percents to the emergency department today for evaluation of increased headache after head injury with loss of consciousness. CT brain is negative. She is neurologically intact with no focal deficits. She will be discharged to follow-up with her primary care physician for recheck in 1-2 days. Return parameters were discussed in detail. She verbalizes understanding and agrees with this plan. Case discussed with my attending Dr. An. - Radiology Data Radiology results: report reviewed, image reviewed CT brain without contrast was obtained. Impression by Dr. Irwin shows Negative CT scan of the brain. No change. Disposition Clinical Impression: Headache Disposition: HOME SELF-CARE Condition: Good Instructions (If sedation given, give patient instructions): Head Injury (ED), Acute Headache (ED) Additional Instructions: Follow up with your primary care physician for recheck in 1-2 days. Return for any new, worsening, or concerning symptoms. Is patient prescribed a controlled substance at d/c from ED?: No Referrals: José Reece MD [Primary Care Provider] - 1-2 days Time of Disposition: 23:07
[2021-01-11] MEDS ORDERED: HYDROmorphone 1 MG/ML 1 ML SYRINGE IVP STA (23:20)
[2021-01-11 23:45] VITALS: BP 118/87; PULSE 78; RESP 18
== END 2021-01-11 23:45 | disposition home or self-care (01) ==
LOC: EC 20:00
DX: S09.90XA Unspecified injury of head, initial encounter (principal); I10 Essential (primary) hypertension; E78.5 Hyperlipidemia, unspecified; G40.909 Epilepsy, unspecified, not intractable, without status epilepticus; Z79.51 Long term (current) use of inhaled steroids; Z79.899 Other long term (current) drug therapy; Z88.0 Allergy status to penicillin; Z88.1 Allergy status to other antibiotic agents; Z88.2 Allergy status to sulfonamides; Z88.5 Allergy status to narcotic agent; Z88.6 Allergy status to analgesic agent; Z88.8 Allergy status to other drugs, medicaments and biological substances; W18.30XA Fall on same level, unspecified, initial encounter; W22.8XXA Striking against or struck by other objects, initial encounter
CPT/HCPCS: 70450; 99284; 96374; 96372 ×2; J1200; J1170

== ENCOUNTER 2021-01-16 19:45 | Emergency (ER) | payer OTHER ==
[2021-01-16 20:09] VITALS: TEMP 98.9
[2021-01-16] MEDS ORDERED: ONDANSETRON 4 MG/2 ML VIAL IVP STA (20:31)
[2021-01-16] MEDS ORDERED: diphenhydrAMINE 50 MG/ML 1 ML VIAL IVP STA (20:31)
[2021-01-16] MEDS ORDERED: HYDROmorphone 1 MG/ML 1 ML SYRINGE IVP STA (20:31)
[2021-01-16] MEDS ORDERED: SODIUM CHLORIDE 0.9% 500 ML 500 ML IV STA (20:31)
--- NOTE | 2021-01-16 20:35 | ED ---
General Adult HPI - General Chief complaint: Seizure Stated complaint: Seizure,Headache Time Seen by Provider: 01/16/21 20:27 Source: patient, RN notes reviewed, old records reviewed Mode of arrival: ambulatory Limitations: no limitations - History of Present Illness Initial comments: Patient is a 50-year-old female with history of chronic migraines, presenting to the emergency Department with complaints of a headache and multiple seizures that happened yesterday. Patient takes vimpat for her seizures, she's been on this for years. She ran out of her medication 1 week ago and has been trying to eat a refill from her doctor but they have refused until her appointment on Friday. She states she had multiple seizures today which induced a headache. She does have an appointment at [facility] tomorrow and is concerned that she would not be old go if she continues to have this bad migraine. She denies any falls or trauma. She does have some mild nausea, light sensitivity. This feels like her normal migraines. For a few days or refill of her medication until her appointment on Friday with her PCP. She denies any fevers or chills, no chest pain or shortness of breath. She has no further complaints. - Related Data Home Medications Medication Instructions Recorded Confirmed Galcanezumab-Gnlm [Emgality Pen] 120 mg SQ Q30D 04/28/20 01/04/21 amLODIPine [Norvasc] 5 mg PO DAILY 04/28/20 01/04/21 Albuterol Inhaler [Ventolin Hfa 1 - 2 puff INHALATION RT-Q6H PRN 11/15/20 01/04/21 Inhaler] Omeprazole [PriLOSEC] 20 mg PO BID 12/15/20 01/04/21 Thiamine [Vitamin B-1] 100 mg PO DAILY 01/04/21 01/04/21 Previous Rx's Medication Instructions Recorded HYDROcodone/APAP 7.5-325MG [[place] 1 tab PO TID PRN #12 tab 11/17/20 7.5-325] Potassium Chloride ER [K-Dur 20] 20 meq PO BID 7 Days #14 tab 12/15/20 Lacosamide [Vimpat] 100 mg PO BID 7 Days #14 tab 01/16/21 Allergies Allergy/AdvReac Type Severity Reaction Status Date / Time dihydroergotamine Allergy Unknown Unknown Verified 01/16/21 20:09 [From Migranal] gabapentin [From Neurontin] Allergy Itching/Swe Verified 01/16/21 20:09 lling latex Allergy Anaphylaxis Verified 01/16/21 20:09 naproxen [From Naprosyn] Allergy Anaphylaxis Verified 01/16/21 20:09 Penicillins Allergy Anaphylaxis Verified 01/16/21 20:09 prednisone Allergy Swelling Verified 01/16/21 20:09 quetiapine fumarate Allergy Itching, Verified 01/16/21 20:09 [From Seroquel] leg cramps rofecoxib [From Vioxx] Allergy Itching, Verified 01/16/21 20:09 leg cramps terfenadine [From Seldane] Allergy Rash/Hives Verified 01/16/21 20:09 tramadol Allergy Nausea & Verified 01/16/21 20:09 Vomiting/LEG CRAMPS/HEART FLUTTERS calcium carbonate [From DHEA] AdvReac Chest Pain Verified 01/16/21 20:09 calcium phosphate,dibasic AdvReac Chest Pain Verified 01/16/21 20:09 [From DHEA] clindamycin AdvReac muscle Verified 01/16/21 20:09 cramps clonidine AdvReac fast Verified 01/16/21 20:09 heartbeat, migraine dextromethorphan HBr AdvReac face/neck Verified 01/16/21 20:09 [From NyQuil] flushing diazepam [From Valium] AdvReac Nausea & Verified 01/16/21 20:09 Vomiting divalproex sodium AdvReac Nausea & Verified 01/16/21 20:09 [From Depakote] Vomiting doxylamine [From NyQuil] AdvReac face "beet Verified 01/16/21 20:09 red", elevated temp. ibuprofen [From Motrin] AdvReac abdominal Verified 01/16/21 20:09 & muscle cramps indomethacin [From Indocin] AdvReac Abdominal Verified 01/16/21 20:09 Pain,N/V ketorolac tromethamine AdvReac "built up Verified 01/16/21 20:09 [From Toradol] in system", had to be given something to reverse lorazepam [From Ativan] AdvReac Nausea & Verified 01/16/21 20:09 Vomiting memantine [From Namenda] AdvReac Itching Verified 01/16/21 20:09 metoclopramide HCl AdvReac muscle Verified 01/16/21 20:09 [From Reglan] cramps nortriptyline [From Pamelor] AdvReac Chest Pain Verified 01/16/21 20:09 prasterone (DHEA) [From DHEA] AdvReac Chest Pain Verified 01/16/21 20:09 prochlorperazine AdvReac leg Verified 01/16/21 20:09 [From Compazine] cramping propranolol AdvReac Chest Pain Verified 01/16/21 20:09 pseudoephedrine HCl AdvReac face "beet Verified 01/16/21 20:09 [From NyQuil] red", elevated temp. quetiapine [From Seroquel] AdvReac leg Verified 01/16/21 20:09 cramping sumatriptan [From Imitrex] AdvReac migrane Verified 01/16/21 20:09 sumatriptan succinate AdvReac migrane Verified 01/16/21 20:09 [From Imitrex] topiramate [From Topamax] AdvReac "built up Verified 01/16/21 20:09 in system", had to be given something to reverse trazodone AdvReac "built up Verified 01/16/21 20:09 in system", had to be given something to reverse zolpidem tartrate AdvReac "Became Verified 01/16/21 20:09 [From Ambien] violent with no memory" zonisamide [From Zonegran] AdvReac inability Verified 01/16/21 20:09 to eat prosyn Allergy Itching Uncoded 01/16/21 20:09 artificial sweetener AdvReac SEVERE Uncoded 01/16/21 20:09 MIGRAINE HEADACHE Review of Systems ROS Statement: Those systems with pertinent positive or pertinent negative responses have been documented in the HPI. ROS Other: All systems not noted in ROS Statement are negative. Past Medical History Past Medical History: Hyperlipidemia, Hypertension, Seizure Disorder Additional Past Medical History / Comment(s): Migraines, viral meningitis x3 as a child, 1995, 2000, chronic back pain, nerve blocks 08/2016 and 12/2016. Last seizure 10/10/2020, "ABSENT SEIZURES. HX TACHYCARDIA, GBS/CIPD, PTSD. History of Any Multi-Drug Resistant Organisms: None Reported Past Surgical History: Appendectomy, Section, Cholecystectomy, Hernia Repair, Hysterectomy, Orthopedic Surgery, Tonsillectomy, Tubal Ligation Additional Past Surgical History / Comment(s): Hiatal Hernia, umbilical hernia repair, left rotator cuff repair, bilateral knee scopes, pain clinic procedures- occipital nerve block. abd exploratory sx(endometreosis), 3 abd scopes 1981, 1989, 1991), lumbar puncture. EGD. nerve biopsy, salvalry gland biospy Past Anesthesia/Blood Transfusion Reactions: No Reported Reaction Additional Past Anesthesia/Blood Transfusion Reaction / Comment(s): Claustrophobic Past Psychological History: Anxiety, Bipolar, Panic Disorder, PTSD Smoking Status: Current every day smoker Past Alcohol Use History: None Reported Past Drug Use History: None Reported - Past Family History Mother Family Medical History: Cancer, Dementia, Diabetes Mellitus, GERD/Reflux, Hyperlipidemia, Hypertension, Thyroid Disorder Additional Family Medical History / Comment(s): Quad CABG, cardiac stents, toes ampuated and left leg amputated Father History Unknown: Yes Family Medical History: No Reported History General Exam - General Exam Comments Initial Comments: GENERAL: Patient is well-developed and well-nourished. Patient is nontoxic and in mild distress. HEAD: Atraumatic, normocephalic. EYES: Pupils equal round and reactive to light, extraocular movements intact, sclera anicteric, conjunctiva are normal. Eyelids were unremarkable. Light sensative. ENT: Moist mucous membranes. NECK: Normal range of motion, supple without lymphadenopathy or JVD. LUNGS: Unlabored respirations. Breath sounds clear to auscultation bilaterally and equal. No wheezes rales or rhonchi. HEART: Regular rate and rhythm without murmurs, rubs or gallops. ABDOMEN: Soft, nontender, normoactive bowel sounds. No guarding, no rebound. No masses appreciated. : Deferred MUSCULOSKELETAL: Normal extremities with adequate strength and normal range of motion, no pitting or edema. No clubbing or cyanosis. NEUROLOGICAL: Patient is alert and oriented x 3. Motor and sensory are also intact. Cranial nerves II through XII grossly intact. Symmetrical smile. Normal speech, normal gait. PSYCH: Normal mood, normal affect. SKIN: Warm, Dry, normal turgor, no rashes or lesions noted. Limitations: no limitations Course Vital Signs 01/16/21 20:06 Temperature 98.9 F Pulse Rate 101 H Respiratory 20 Rate Blood Pressure 136/90 O2 Sat by Pulse 98 Oximetry Medical Decision Making - Medical Decision Making Patient is a 50-year-old female with history of chronic migraines, presenting with a migraine also complains of multiple seizures yesterday secondary to be out of her medication. Patient is well-known to this ER for her migraines. Her exam is unremarkable, no acute neuro deficits. Her migraine feels like her normal migraines. She has been out of her Vimpat for over a week. She is requesting a refill until Friday when she has a doctor's appointment. Patient received some pain control, reports improvement of symptoms. I did give her a dose of Vimpat today, she can rock picker a weeks worth tomorrow. She is agreeable to this plan of care. Return parameters were discussed with her and she verbalized understanding. Disposition Clinical Impression: Headache, Medication refill Disposition: HOME SELF-CARE Condition: Stable Instructions (If sedation given, give patient instructions): Acute Headache (ED) Additional Instructions: Please return to the Emergency Department if symptoms worsen or any other concerns. Please follow-up with your regular doctors. Prescriptions: Lacosamide [Vimpat] 100 mg PO BID 7 Days #14 tab Is patient prescribed a controlled substance at d/c from ED?: Yes When asked, does pt state using other controlled substances?: No If prescribed controlled substance>3 days was MAPS reviewed?: Prescribed <3 Days Referrals: José Reece MD [Primary Care Provider] - 1-2 days Time of Disposition: 22:42
[2021-01-16] MEDS ORDERED: LACOSAMIDE 50 MG TABLET PO STA (22:36)
[2021-01-16] MEDS ORDERED: HYDROmorphone 0.5 MG/0.5 ML SYRINGE IVP STA (22:36)
[2021-01-16 23:41] VITALS: BP 134/91; PULSE 94; RESP 16
== END 2021-01-16 23:42 | disposition home or self-care (01) ==
LOC: EC 19:45
DX: R51.9 Headache, unspecified (principal); I10 Essential (primary) hypertension; E78.5 Hyperlipidemia, unspecified; F31.9 Bipolar disorder, unspecified; G40.909 Epilepsy, unspecified, not intractable, without status epilepticus; F17.200 Nicotine dependence, unspecified, uncomplicated; Z76.0 Encounter for issue of repeat prescription; Z79.899 Other long term (current) drug therapy; Z79.51 Long term (current) use of inhaled steroids; Z88.0 Allergy status to penicillin; Z88.1 Allergy status to other antibiotic agents; Z88.2 Allergy status to sulfonamides; Z88.5 Allergy status to narcotic agent; Z88.6 Allergy status to analgesic agent; Z88.8 Allergy status to other drugs, medicaments and biological substances; Z83.3 Family history of diabetes mellitus; Z83.49 Family history of other endocrine, nutritional and metabolic diseases; Z82.49 Family history of ischemic heart disease and other diseases of the circulatory system; Z90.49 Acquired absence of other specified parts of digestive tract
CPT/HCPCS: 96374; 96375 ×3; 96376; 99283; J1200; J2405; J1642; J1170 ×2

== ENCOUNTER 2021-01-30 17:41 | Emergency (ER) | payer OTHER ==
[2021-01-30 17:53] VITALS: BP 132/87; PULSE 107; RESP 20; TEMP 97.6
[2021-01-30] MEDS ORDERED: ONDANSETRON 4 MG/2 ML VIAL IVP STA (19:49)
[2021-01-30] MEDS ORDERED: diphenhydrAMINE 50 MG/ML 1 ML VIAL IVP STA (19:49)
[2021-01-30] MEDS ORDERED: HYDROmorphone 1 MG/ML 1 ML SYRINGE IVP STA ×3 (19:49→22:01)
[2021-01-30] MEDS ORDERED: SODIUM CHLORIDE 0.9% 1,000 ML IV STA (19:49)
--- NOTE | 2021-01-30 20:57 | ED ---
Headache HPI - General Chief Complaint: Headache Stated Complaint: Migraine Time Seen by Provider: 01/30/21 19:43 Source: patient, RN notes reviewed Mode of arrival: ambulatory Limitations: no limitations - History of Present Illness Initial Comments: Patient is a 50-year-old female that presents to emergency room complaining of chronic migraine. She is a well-known patient here in the emergency department. She notes that she does have a port for access for medications. Patient notes that she is having her typical migraine with no relief from at home medications. She denied any new symptoms. She was otherwise well. She denied chest pain shortness of breath nausea vomiting diarrhea constipation fever fatigue chills. - Related Data Home Medications Medication Instructions Recorded Confirmed Galcanezumab-Gnlm [Emgality Pen] 120 mg SQ Q30D 04/28/20 01/04/21 amLODIPine [Norvasc] 5 mg PO DAILY 04/28/20 01/04/21 Albuterol Inhaler [Ventolin Hfa 1 - 2 puff INHALATION RT-Q6H PRN 11/15/20 01/04/21 Inhaler] Omeprazole [PriLOSEC] 20 mg PO BID 12/15/20 01/04/21 Thiamine [Vitamin B-1] 100 mg PO DAILY 01/04/21 01/04/21 Previous Rx's Medication Instructions Recorded HYDROcodone/APAP 7.5-325MG [[place] 1 tab PO TID PRN #12 tab 11/17/20 7.5-325] Potassium Chloride ER [K-Dur 20] 20 meq PO BID 7 Days #14 tab 12/15/20 Lacosamide [Vimpat] 100 mg PO BID 7 Days #14 tab 01/16/21 Allergies Allergy/AdvReac Type Severity Reaction Status Date / Time dihydroergotamine Allergy Unknown Unknown Verified 01/16/21 20:09 [From Migranal] gabapentin [From Neurontin] Allergy Itching/Swe Verified 01/16/21 20:09 lling latex Allergy Anaphylaxis Verified 01/16/21 20:09 naproxen [From Naprosyn] Allergy Anaphylaxis Verified 01/16/21 20:09 Penicillins Allergy Anaphylaxis Verified 01/16/21 20:09 prednisone Allergy Swelling Verified 01/16/21 20:09 quetiapine fumarate Allergy Itching, Verified 01/16/21 20:09 [From Seroquel] leg cramps rofecoxib [From Vioxx] Allergy Itching, Verified 01/16/21 20:09 leg cramps terfenadine [From Seldane] Allergy Rash/Hives Verified 01/16/21 20:09 tramadol Allergy Nausea & Verified 01/16/21 20:09 Vomiting/LEG CRAMPS/HEART FLUTTERS calcium carbonate [From DHEA] AdvReac Chest Pain Verified 01/16/21 20:09 calcium phosphate,dibasic AdvReac Chest Pain Verified 01/16/21 20:09 [From DHEA] clindamycin AdvReac muscle Verified 01/16/21 20:09 cramps clonidine AdvReac fast Verified 01/16/21 20:09 heartbeat, migraine dextromethorphan HBr AdvReac face/neck Verified 01/16/21 20:09 [From NyQuil] flushing diazepam [From Valium] AdvReac Nausea & Verified 01/16/21 20:09 Vomiting divalproex sodium AdvReac Nausea & Verified 01/16/21 20:09 [From Depakote] Vomiting doxylamine [From NyQuil] AdvReac face "beet Verified 01/16/21 20:09 red", elevated temp. ibuprofen [From Motrin] AdvReac abdominal Verified 01/16/21 20:09 & muscle cramps indomethacin [From Indocin] AdvReac Abdominal Verified 01/16/21 20:09 Pain,N/V ketorolac tromethamine AdvReac "built up Verified 01/16/21 20:09 [From Toradol] in system", had to be given something to reverse lorazepam [From Ativan] AdvReac Nausea & Verified 01/16/21 20:09 Vomiting memantine [From Namenda] AdvReac Itching Verified 01/16/21 20:09 metoclopramide HCl AdvReac muscle Verified 01/16/21 20:09 [From Reglan] cramps nortriptyline [From Pamelor] AdvReac Chest Pain Verified 01/16/21 20:09 prasterone (DHEA) [From DHEA] AdvReac Chest Pain Verified 01/16/21 20:09 prochlorperazine AdvReac leg Verified 01/16/21 20:09 [From Compazine] cramping propranolol AdvReac Chest Pain Verified 01/16/21 20:09 pseudoephedrine HCl AdvReac face "beet Verified 01/16/21 20:09 [From NyQuil] red", elevated temp. quetiapine [From Seroquel] AdvReac leg Verified 01/16/21 20:09 cramping sumatriptan [From Imitrex] AdvReac migrane Verified 01/16/21 20:09 sumatriptan succinate AdvReac migrane Verified 01/16/21 20:09 [From Imitrex] topiramate [From Topamax] AdvReac "built up Verified 01/16/21 20:09 in system", had to be given something to reverse trazodone AdvReac "built up Verified 01/16/21 20:09 in system", had to be given something to reverse zolpidem tartrate AdvReac "Became Verified 01/16/21 20:09 [From Ambien] violent with no memory" zonisamide [From Zonegran] AdvReac inability Verified 01/16/21 20:09 to eat prosyn Allergy Itching Uncoded 01/16/21 20:09 artificial sweetener AdvReac SEVERE Uncoded 01/16/21 20:09 MIGRAINE HEADACHE Review of Systems ROS Statement: Those systems with pertinent positive or pertinent negative responses have been documented in the HPI. ROS Other: All systems not noted in ROS Statement are negative. Past Medical History Past Medical History: Hyperlipidemia, Hypertension, Seizure Disorder Additional Past Medical History / Comment(s): Migraines, viral meningitis x3 as a child, 1995, 2000, chronic back pain, nerve blocks 08/2016 and 12/2016. Last seizure 10/10/2020, "ABSENT SEIZURES. HX TACHYCARDIA, GBS/CIPD, PTSD. History of Any Multi-Drug Resistant Organisms: None Reported Past Surgical History: Appendectomy, Section, Cholecystectomy, Hernia Repair, Hysterectomy, Orthopedic Surgery, Tonsillectomy, Tubal Ligation Additional Past Surgical History / Comment(s): Hiatal Hernia, umbilical hernia repair, left rotator cuff repair, bilateral knee scopes, pain clinic procedures- occipital nerve block. abd exploratory sx(endometreosis), 3 abd scopes 1981, 1989, 1991), lumbar puncture. EGD. nerve biopsy, salvalry gland biospy Past Anesthesia/Blood Transfusion Reactions: No Reported Reaction Additional Past Anesthesia/Blood Transfusion Reaction / Comment(s): Claust rophobic Past Psychological History: Anxiety, Bipolar, Panic Disorder, PTSD Smoking Status: Current every day smoker Past Alcohol Use History: None Reported Past Drug Use History: None Reported - Past Family History Mother Family Medical History: Cancer, Dementia, Diabetes Mellitus, GERD/Reflux, Hyperlipidemia, Hypertension, Thyroid Disorder Additional Family Medical History / Comment(s): Quad CABG, cardiac stents, toes ampuated and left leg amputated Father History Unknown: Yes Family Medical History: No Reported History General Exam Limitations: no limitations General appearance: alert, in no apparent distress Head exam: Present: atraumatic, normocephalic, normal inspection Eye exam: Present: normal appearance, PERRL, EOMI. Absent: scleral icterus, conjunctival injection, periorbital swelling ENT exam: Present: normal exam, mucous membranes moist Neck exam: Present: normal inspection Respiratory exam: Present: normal lung sounds bilaterally. Absent: respiratory distress, wheezes, rales, rhonchi, stridor Cardiovascular Exam: Present: regular rate, normal rhythm, normal heart sounds. Absent: systolic murmur, diastolic murmur, rubs, gallop, clicks Extremities exam: Present: normal inspection, full ROM, normal capillary refill. Absent: tenderness, pedal edema, joint swelling, calf tenderness Neurological exam: Present: alert, oriented X3 Psychiatric exam: Present: normal affect, normal mood Skin exam: Present: warm, dry, intact, normal color. Absent: rash Course Vital Signs 01/30/21 17:51 Temperature 97.6 F Pulse Rate 107 H Respiratory 20 Rate Blood Pressure 132/87 O2 Sat by Pulse 99 Oximetry Medical Decision Making - Medical Decision Making 50-year-old female with chronic migraine, no relief from at home medications. 1 L normal saline, 1 mg of Dilaudid, 50 g Benadryl, 4 mg of Zofran ordered. Upon reevaluation patient is a group discharge home after smoke pain medication. 1 mg of Dilaudid ordered. Case discussed with Dr. Hein, patient can discharge home. Disposition Clinical Impression: Migraine, Headache Disposition: HOME SELF-CARE Condition: Stable Instructions (If sedation given, give patient instructions): Acute Headache (ED) Additional Instructions: Please return to the Emergency Department if symptoms worsen or any other concerns. Follow-up primary care 1-2 days. [place] a neurologist soon as possible. Is patient prescribed a controlled substance at d/c from ED?: No Referrals: José Reece MD [Primary Care Provider] - 1-2 days Time of Disposition: 20:57
== END 2021-01-30 22:59 | disposition home or self-care (01) ==
LOC: EC 17:41
DX: G43.909 Migraine, unspecified, not intractable, without status migrainosus (principal); I10 Essential (primary) hypertension; E78.5 Hyperlipidemia, unspecified; F41.9 Anxiety disorder, unspecified; F31.9 Bipolar disorder, unspecified; F17.200 Nicotine dependence, unspecified, uncomplicated; Z91.040 Latex allergy status; Z88.0 Allergy status to penicillin; Z88.6 Allergy status to analgesic agent; Z88.5 Allergy status to narcotic agent; Z88.1 Allergy status to other antibiotic agents; Z90.49 Acquired absence of other specified parts of digestive tract; Z98.51 Tubal ligation status; Z90.710 Acquired absence of both cervix and uterus; Z79.899 Other long term (current) drug therapy; Z88.2 Allergy status to sulfonamides
CPT/HCPCS: 99283; 96374; 96375 ×2; 96376 ×2; 96361 ×3; J1200; J2405; J1170

== ENCOUNTER 2021-02-06 14:51 | Emergency (ER) | payer OTHER ==
[2021-02-06 15:29] VITALS: TEMP 98
[2021-02-06] MEDS ORDERED: diphenhydrAMINE 50 MG/ML 1 ML VIAL IVP STA (16:12)
[2021-02-06] MEDS ORDERED: ONDANSETRON 4 MG/2 ML VIAL IVP STA (16:12)
[2021-02-06] MEDS ORDERED: SODIUM CHLORIDE 0.9% 1,000 ML IV STA (16:12)
[2021-02-06] MEDS ORDERED: HYDROmorphone 1 MG/ML 1 ML SYRINGE IVP STA ×2 (16:12→17:42)
--- NOTE | 2021-02-06 17:46 | ED ---
Headache HPI - General Chief Complaint: Headache Stated Complaint: Headache,Vomiting Time Seen by Provider: 02/06/21 16:12 Source: patient, RN notes reviewed Mode of arrival: ambulatory Limitations: no limitations - History of Present Illness Initial Comments: Patient is a 50-year-old female that presents to emergency department complaining of chronic migraine with no relief from at home medications. She notes that she does have a follow-up with a pain medicine specialist at [facility] at the end of the month. She notes that she is excited for this as she will not have to come to the ER for pain management anymore. She denied any chest pain shortness of breath nausea vomiting diarrhea constipation fever fatigue chills. - Related Data Home Medications Medication Instructions Recorded Confirmed Galcanezumab-Gnlm [Emgality Pen] 120 mg SQ Q30D 04/28/20 01/04/21 amLODIPine [Norvasc] 5 mg PO DAILY 04/28/20 01/04/21 Albuterol Inhaler [Ventolin Hfa 1 - 2 puff INHALATION RT-Q6H PRN 11/15/20 01/04/21 Inhaler] Omeprazole [PriLOSEC] 20 mg PO BID 12/15/20 01/04/21 Thiamine [Vitamin B-1] 100 mg PO DAILY 01/04/21 01/04/21 Previous Rx's Medication Instructions Recorded HYDROcodone/APAP 7.5-325MG [[place] 1 tab PO TID PRN #12 tab 11/17/20 7.5-325] Potassium Chloride ER [K-Dur 20] 20 meq PO BID 7 Days #14 tab 12/15/20 Lacosamide [Vimpat] 100 mg PO BID 7 Days #14 tab 01/16/21 Allergies Allergy/AdvReac Type Severity Reaction Status Date / Time dihydroergotamine Allergy Unknown Unknown Verified 02/06/21 15:29 [From Migranal] gabapentin [From Neurontin] Allergy Itching/Swe Verified 02/06/21 15:29 lling latex Allergy Anaphylaxis Verified 02/06/21 15:29 naproxen [From Naprosyn] Allergy Anaphylaxis Verified 02/06/21 15:29 Penicillins Allergy Anaphylaxis Verified 02/06/21 15:29 prednisone Allergy Swelling Verified 02/06/21 15:29 quetiapine fumarate Allergy Itching, Verified 02/06/21 15:29 [From Seroquel] leg cramps rofecoxib [From Vioxx] Allergy Itching, Verified 02/06/21 15:29 leg cramps terfenadine [From Seldane] Allergy Rash/Hives Verified 02/06/21 15:29 tramadol Allergy Nausea & Verified 02/06/21 15:29 Vomiting/LEG CRAMPS/HEART FLUTTERS calcium carbonate [From DHEA] AdvReac Chest Pain Verified 02/06/21 15:29 calcium phosphate,dibasic AdvReac Chest Pain Verified 02/06/21 15:29 [From DHEA] clindamycin AdvReac muscle Verified 02/06/21 15:29 cramps clonidine AdvReac fast Verified 02/06/21 15:29 heartbeat, migraine dextromethorphan HBr AdvReac face/neck Verified 02/06/21 15:29 [From NyQuil] flushing diazepam [From Valium] AdvReac Nausea & Verified 02/06/21 15:29 Vomiting divalproex sodium AdvReac Nausea & Verified 02/06/21 15:29 [From Depakote] Vomiting doxylamine [From NyQuil] AdvReac face "beet Verified 02/06/21 15:29 red", elevated temp. ibuprofen [From Motrin] AdvReac abdominal Verified 02/06/21 15:29 & muscle cramps indomethacin [From Indocin] AdvReac Abdominal Verified 02/06/21 15:29 Pain,N/V ketorolac tromethamine AdvReac "built up Verified 02/06/21 15:29 [From Toradol] in system", had to be given something to reverse lorazepam [From Ativan] AdvReac Nausea & Verified 02/06/21 15:29 Vomiting memantine [From Namenda] AdvReac Itching Verified 02/06/21 15:29 metoclopramide HCl AdvReac muscle Verified 02/06/21 15:29 [From Reglan] cramps nortriptyline [From Pamelor] AdvReac Chest Pain Verified 02/06/21 15:29 prasterone (DHEA) [From DHEA] AdvReac Chest Pain Verified 02/06/21 15:29 prochlorperazine AdvReac leg Verified 02/06/21 15:29 [From Compazine] cramping propranolol AdvReac Chest Pain Verified 02/06/21 15:29 pseudoephedrine HCl AdvReac face "beet Verified 02/06/21 15:29 [From NyQuil] red", elevated temp. quetiapine [From Seroquel] AdvReac leg Verified 02/06/21 15:29 cramping sumatriptan [From Imitrex] AdvReac migrane Verified 02/06/21 15:29 sumatriptan succinate AdvReac migrane Verified 02/06/21 15:29 [From Imitrex] topiramate [From Topamax] AdvReac "built up Verified 02/06/21 15:29 in system", had to be given something to reverse trazodone AdvReac "built up Verified 02/06/21 15:29 in system", had to be given something to reverse zolpidem tartrate AdvReac "Became Verified 02/06/21 15:29 [From Ambien] violent with no memory" zonisamide [From Zonegran] AdvReac inability Verified 02/06/21 15:29 to eat prosyn Allergy Itching Uncoded 02/06/21 15:29 artificial sweetener AdvReac SEVERE Uncoded 02/06/21 15:29 MIGRAINE HEADACHE Review of Systems ROS Statement: Those systems with pertinent positive or pertinent negative responses have been documented in the HPI. ROS Other: All systems not noted in ROS Statement are negative. Past Medical History Past Medical History: Hyperlipidemia, Hypertension, Seizure Disorder Additional Past Medical History / Comment(s): Migraines, viral meningitis x3 as a child, 1995, 2000, chronic back pain, nerve blocks 08/2016 and 12/2016. Last seizure 10/10/2020, "ABSENT SEIZURES. HX TACHYCARDIA, GBS/CIPD, PTSD. History of Any Multi-Drug Resistant Organisms: None Reported Past Surgical History: Appendectomy, Section, Cholecystectomy, Hernia Repair, Hysterectomy, Orthopedic Surgery, Tonsillectomy, Tubal Ligation Additional Past Surgical History / Comment(s): Hiatal Hernia, umbilical hernia repair, left rotator cuff repair, bilateral knee scopes, pain clinic procedures- occipital nerve block. abd exploratory sx(endometreosis), 3 abd scopes 1981, 1989, 1991), lumbar puncture. EGD. nerve biopsy, salvalry gland biospy Past Anesthesia/Blood Transfusion Reactions: No Reported Reaction Additional Past Anesthesia/Blood Transfusion Reaction / Comment(s): Claustrophobic Past Psychological History: Anxiety, Bipolar, Panic Disorder, PTSD Smoking Status: Current every day smoker Past Alcohol Use History: None Reported Past Drug Use History: None Reported - Past Family History Mother Family Medical History: Cancer, Dementia, Diabetes Mellitus, GERD/Reflux, Hyperlipidemia, Hypertension, Thyroid Disorder Additional Family Medical History / Comment(s): Quad CABG, cardiac stents, toes ampuated and left leg amputated Father History Unknown: Yes Family Medical History: No Reported History General Exam Limitations: no limitations General appearance: alert, in no apparent distress Head exam: Present: atraumatic, normocephalic, normal inspection Eye exam: Present: normal appearance, PERRL, EOMI. Absent: scleral icterus, conjunctival injection, periorbital swelling ENT exam: Present: normal exam, mucous membranes moist Neck exam: Present: normal inspection Respiratory exam: Present: normal lung sounds bilaterally. Absent: respiratory distress, wheezes, rales, rhonchi, stridor Cardiovascular Exam: Present: regular rate, normal rhythm, normal heart sounds. Absent: systolic murmur, diastolic murmur, rubs, gallop, clicks GI/Abdominal exam: Present: soft, normal bowel sounds. Absent: distended, tenderness, guarding, rebound, rigid Extremities exam: Present: normal inspection, full ROM, normal capillary refill. Absent: tenderness, pedal edema, joint swelling, calf tenderness Neurological exam: Present: alert, oriented X3 Psychiatric exam: Present: normal affect, normal mood Skin exam: Present: warm, dry, intact, normal color. Absent: rash Course Vital Signs 02/06/21 15:25 Temperature 98.0 F Pulse Rate 107 H Respiratory 18 Rate Blood Pressure 135/85 O2 Sat by Pulse 96 Oximetry Medical Decision Making - Medical Decision Making 50-year-old female chronic migraines no relief at home medications. 1 L normal saline, 1 mg of Dilaudid, 50 mg of Benadryl, 4 mg of Zofran ordered. Upon reevaluation patient states that she is feeling better and would like one more dose of pain medication and she is comfortable going home. 1 more milligram of Dilaudid ordered. Case discussed with Dr. Duffy, patient discharge home. Disposition Clinical Impression: Headache, Migraine Disposition: HOME SELF-CARE Condition: Stable Instructions (If sedation given, give patient instructions): Acute Headache (ED) Additional Instructions: Please return to the Emergency Department if symptoms worsen or any other concerns. Follow-up with primary care 1-2 days. Follow-up with pain medicine specialist as planned. Continue take at home medications as prescribed. Is patient prescribed a controlled substance at d/c from ED?: No Referrals: José Reece MD [Primary Care Provider] - 1-2 days Time of Disposition: 17:46 Decision Time: 17:46
[2021-02-06] MEDS ORDERED: diphenhydrAMINE 50 MG/ML 1 ML VIAL IVP PRN (18:01)
[2021-02-06 18:11] VITALS: BP 152/87; PULSE 110; RESP 16
== END 2021-02-06 18:11 | disposition home or self-care (01) ==
LOC: EC 14:51
DX: G43.909 Migraine, unspecified, not intractable, without status migrainosus (principal); I10 Essential (primary) hypertension; E78.5 Hyperlipidemia, unspecified; F31.9 Bipolar disorder, unspecified; F17.200 Nicotine dependence, unspecified, uncomplicated; Z79.51 Long term (current) use of inhaled steroids; Z79.899 Other long term (current) drug therapy; Z83.79 Family history of other diseases of the digestive system; Z83.49 Family history of other endocrine, nutritional and metabolic diseases; Z83.3 Family history of diabetes mellitus; Z82.49 Family history of ischemic heart disease and other diseases of the circulatory system; Z88.0 Allergy status to penicillin; Z88.1 Allergy status to other antibiotic agents; Z88.2 Allergy status to sulfonamides; Z88.5 Allergy status to narcotic agent; Z88.6 Allergy status to analgesic agent; Z88.8 Allergy status to other drugs, medicaments and biological substances; Z90.49 Acquired absence of other specified parts of digestive tract
CPT/HCPCS: 99283; 96374; 96375 ×2; 96376 ×2; 96361; J1200; J2405; J1170

== ENCOUNTER 2021-02-17 22:00 | Emergency (ER) | payer OTHER ==
[2021-02-17 22:14] VITALS: BP 162/110; TEMP 99.1
--- NOTE | 2021-02-17 22:56 | ED ---
Headache HPI - General Chief Complaint: Headache Stated Complaint: Headache,Nausea Time Seen by Provider: 02/17/21 22:18 Mode of arrival: wheelchair - Related Data Home Medications Medication Instructions Recorded Confirmed Galcanezumab-Gnlm [Emgality Pen] 120 mg SQ Q30D 04/28/20 01/04/21 amLODIPine [Norvasc] 5 mg PO DAILY 04/28/20 01/04/21 Albuterol Inhaler [Ventolin Hfa 1 - 2 puff INHALATION RT-Q6H PRN 11/15/20 01/04/21 Inhaler] Omeprazole [PriLOSEC] 20 mg PO BID 12/15/20 01/04/21 Thiamine [Vitamin B-1] 100 mg PO DAILY 01/04/21 01/04/21 Previous Rx's Medication Instructions Recorded HYDROcodone/APAP 7.5-325MG [[place] 1 tab PO TID PRN #12 tab 11/17/20 7.5-325] Potassium Chloride ER [K-Dur 20] 20 meq PO BID 7 Days #14 tab 12/15/20 Lacosamide [Vimpat] 100 mg PO BID 7 Days #14 tab 01/16/21 Allergies Allergy/AdvReac Type Severity Reaction Status Date / Time dihydroergotamine Allergy Unknown Unknown Verified 02/06/21 15:29 [From Migranal] gabapentin [From Neurontin] Allergy Itching/Swe Verified 02/06/21 15:29 lling latex Allergy Anaphylaxis Verified 02/17/21 22:14 naproxen [From Naprosyn] Allergy Anaphylaxis Verified 02/17/21 22:14 Penicillins Allergy Anaphylaxis Verified 02/17/21 22:14 prednisone Allergy Swelling Verified 02/17/21 22:14 quetiapine fumarate Allergy Itching, Verified 02/17/21 22:14 [From Seroquel] leg cramps rofecoxib [From Vioxx] Allergy Itching, Verified 02/17/21 22:14 leg cramps terfenadine [From Seldane] Allergy Rash/Hives Verified 02/17/21 22:14 tramadol Allergy Nausea & Verified 02/17/21 22:14 Vomiting/LEG CRAMPS/HEART FLUTTERS calcium carbonate [From DHEA] AdvReac Chest Pain Verified 02/17/21 22:14 calcium phosphate,dibasic AdvReac Chest Pain Verified 02/17/21 22:14 [From DHEA] clindamycin AdvReac muscle Verified 02/17/21 22:14 cramps clonidine AdvReac fast Verified 02/17/21 22:14 heartbeat, migraine dextromethorphan HBr AdvReac face/neck Verified 02/17/21 22:14 [From NyQuil] flushing diazepam [From Valium] AdvReac Nausea & Verified 02/17/21 22:14 Vomiting divalproex sodium AdvReac Nausea & Verified 02/17/21 22:14 [From Depakote] Vomiting doxylamine [From NyQuil] AdvReac face "beet Verified 02/17/21 22:14 red", elevated temp. ibuprofen [From Motrin] AdvReac abdominal Verified 02/17/21 22:14 & muscle cramps indomethacin [From Indocin] AdvReac Abdominal Verified 02/17/21 22:14 Pain,N/V ketorolac tromethamine AdvReac "built up Verified 02/17/21 22:14 [From Toradol] in system", had to be given something to reverse lorazepam [From Ativan] AdvReac Nausea & Verified 02/17/21 22:14 Vomiting memantine [From Namenda] AdvReac Itching Verified 02/17/21 22:14 metoclopramide HCl AdvReac muscle Verified 02/17/21 22:14 [From Reglan] cramps nortriptyline [From Pamelor] AdvReac Chest Pain Verified 02/17/21 22:14 prasterone (DHEA) [From DHEA] AdvReac Chest Pain Verified 02/17/21 22:14 prochlorperazine AdvReac leg Verified 02/17/21 22:14 [From Compazine] cramping propranolol AdvReac Chest Pain Verified 02/17/21 22:14 pseudoephedrine HCl AdvReac face "beet Verified 02/17/21 22:14 [From NyQuil] red", elevated temp. quetiapine [From Seroquel] AdvReac leg Verified 02/17/21 22:14 cramping sumatriptan [From Imitrex] AdvReac migrane Verified 02/17/21 22:14 sumatriptan succinate AdvReac migrane Verified 02/17/21 22:14 [From Imitrex] topiramate [From Topamax] AdvReac "built up Verified 02/17/21 22:14 in system", had to be given something to reverse trazodone AdvReac "built up Verified 02/17/21 22:14 in system", had to be given something to reverse zolpidem tartrate AdvReac "Became Verified 02/17/21 22:14 [From Ambien] violent with no memory" zonisamide [From Zonegran] AdvReac inability Verified 02/17/21 22:14 to eat prosyn Allergy Itching Uncoded 02/06/21 15:29 artificial sweetener AdvReac SEVERE Uncoded 02/06/21 15:29 MIGRAINE HEADACHE Review of Systems ROS Statement: Those systems with pertinent positive or pertinent negative responses have been documented in the HPI. ROS Other: All systems not noted in ROS Statement are negative. Past Medical History Past Medical History: Hyperlipidemia, Hypertension, Seizure Disorder Additional Past Medical History / Comment(s): Migraines, viral meningitis x3 as a child, 1995, 2000, chronic back pain, nerve blocks 08/2016 and 12/2016. Last seizure 10/10/2020, "ABSENT SEIZURES. HX TACHYCARDIA, GBS/CIPD, PTSD. History of Any Multi-Drug Resistant Organisms: None Reported Past Surgical History: Appendectomy, Section, Cholecystectomy, Hernia Repair, Hysterectomy, Orthopedic Surgery, Tonsillectomy, Tubal Ligation Additional Past Surgical History / Comment(s): Hiatal Hernia, umbilical hernia repair, left rotator cuff repair, bilateral knee scopes, pain clinic procedures- occipital nerve block. abd exploratory sx(endometreosis), 3 abd scopes 1981, 1989, 1991), lumbar puncture. EGD. nerve biopsy, salvalry gland biospy Past Anesthesia/Blood Transfusion Reactions: No Reported Reaction Additional Past Anesthesia/Blood Transfusion Reaction / Comment(s): Claustrophobic Past Psychological History: Anxiety, Bipolar, Panic Disorder, PTSD Smoking Status: Current every day smoker Past Alcohol Use History: None Reported Past Drug Use History: None Reported - Past Family History Mother Family Medical History: Cancer, Dementia, Diabetes Mellitus, GERD/Reflux, Hyperlipidemia, Hypertension, Thyroid Disorder Additional Family Medical History / Comment(s): Quad CABG, cardiac stents, toes ampuated and left leg amputated Father History Unknown: Yes Family Medical History: No Reported History Course Vital Signs 02/17/21 22:12 Temperature 99.1 F Pulse Rate 124 H Respiratory 18 Rate Blood Pressure 162/110 O2 Sat by Pulse 96 Oximetry Disposition Clinical Impression: Migraine Disposition: HOME SELF-CARE Condition: Fair Instructions (If sedation given, give patient instructions): Acute Headache (ED) Is patient prescribed a controlled substance at d/c from ED?: No Referrals: José Reece MD [Primary Care Provider] - 1-2 days
[2021-02-17] MEDS ORDERED: diphenhydrAMINE 50 MG CAP PO STA (23:09)
[2021-02-17] MEDS ORDERED: HYDROmorphone 1 MG/ML 1 ML SYRINGE IM STA (23:09)
[2021-02-17] MEDS ORDERED: ONDANSETRON ODT 8 MG TAB.RAPDIS PO STA (23:10)
[2021-02-18 00:29] VITALS: PULSE 100; RESP 16
== END 2021-02-18 00:31 | disposition home or self-care (01) ==
LOC: EC 22:00
DX: G43.909 Migraine, unspecified, not intractable, without status migrainosus (principal); I10 Essential (primary) hypertension; E78.5 Hyperlipidemia, unspecified; F41.9 Anxiety disorder, unspecified; F31.9 Bipolar disorder, unspecified; F17.200 Nicotine dependence, unspecified, uncomplicated; Z91.040 Latex allergy status; Z88.0 Allergy status to penicillin; Z88.1 Allergy status to other antibiotic agents; Z88.5 Allergy status to narcotic agent; Z90.49 Acquired absence of other specified parts of digestive tract; Z90.710 Acquired absence of both cervix and uterus; Z98.51 Tubal ligation status
CPT/HCPCS: 99283; 96372; J1170

== ENCOUNTER 2021-02-18 21:43 | Emergency (ER) | payer OTHER ==
[2021-02-18 21:57] VITALS: BP 149/97; PULSE 123; RESP 18; TEMP 98.3
[2021-02-18] MEDS ORDERED: HYDROmorphone 1 MG/ML 1 ML SYRINGE IVP STA (22:12)
[2021-02-18] MEDS ORDERED: diphenhydrAMINE 50 MG/ML 1 ML VIAL IVP STA (22:12)
[2021-02-18] MEDS ORDERED: SODIUM CHLORIDE 0.9% 1,000 ML IV STA (22:12)
--- NOTE | 2021-02-18 23:22 | ED ---
Headache HPI - General Chief Complaint: Headache Stated Complaint: Headache,Nausea Time Seen by Provider: 02/18/21 22:10 Source: RN notes reviewed Mode of arrival: wheelchair Limitations: no limitations - History of Present Illness Initial Comments: This is a 51-year-old female to the emergency room today. She presents today for evaluation regards to headache acute on chronic headache with history of headaches. No nerve facility for multiple evaluations regarding similar headaches headache is her same headache is always. No new traumas fevers or other complaint MD Complaint: headache, "migraine" -: days(s) Onset Description: gradual Location: right, left, frontal Severity: severe Severity scale (1-10): 10 Quality: aching, throbbing Consistency: constant Improves With: nothing Worsens With: none Context: occurred at rest Associated Symptoms: nausea, vomiting Other Symptoms: cough Treatments Prior to Arrival: none - Related Data Home Medications Medication Instructions Recorded Confirmed Galcanezumab-Gnlm [Emgality Pen] 120 mg SQ Q30D 04/28/20 01/04/21 amLODIPine [Norvasc] 5 mg PO DAILY 04/28/20 01/04/21 Albuterol Inhaler [Ventolin Hfa 1 - 2 puff INHALATION RT-Q6H PRN 11/15/20 01/04/21 Inhaler] Omeprazole [PriLOSEC] 20 mg PO BID 12/15/20 01/04/21 Thiamine [Vitamin B-1] 100 mg PO DAILY 01/04/21 01/04/21 Previous Rx's Medication Instructions Recorded HYDROcodone/APAP 7.5-325MG [[place] 1 tab PO TID PRN #12 tab 11/17/20 7.5-325] Potassium Chloride ER [K-Dur 20] 20 meq PO BID 7 Days #14 tab 12/15/20 Lacosamide [Vimpat] 100 mg PO BID 7 Days #14 tab 01/16/21 Allergies Allergy/AdvReac Type Severity Reaction Status Date / Time dihydroergotamine Allergy Unknown Unknown Verified 03/07/21 17:16 [From Migranal] gabapentin [From Neurontin] Allergy Itching/Swe Verified 03/07/21 17:16 lling latex Allergy Anaphylaxis Verified 03/07/21 17:16 naproxen [From Naprosyn] Allergy Anaphylaxis Verified 03/07/21 17:16 Penicillins Allergy Anaphylaxis Verified 03/07/21 17:16 prednisone Allergy Swelling Verified 03/07/21 17:16 quetiapine fumarate Allergy Itching, Verified 03/07/21 17:16 [From Seroquel] leg cramps rofecoxib [From Vioxx] Allergy Itching, Verified 03/07/21 17:16 leg cramps terfenadine [From Seldane] Allergy Rash/Hives Verified 03/07/21 17:16 tramadol Allergy Nausea & Verified 03/07/21 17:16 Vomiting/LEG CRAMPS/HEART FLUTTERS calcium carbonate [From DHEA] AdvReac Chest Pain Verified 03/07/21 17:16 calcium phosphate,dibasic AdvReac Chest Pain Verified 03/07/21 17:16 [From DHEA] clindamycin AdvReac muscle Verified 03/07/21 17:16 cramps clonidine AdvReac fast Verified 03/07/21 17:16 heartbeat, migraine dextromethorphan HBr AdvReac face/neck Verified 03/07/21 17:16 [From NyQuil] flushing diazepam [From Valium] AdvReac Nausea & Verified 03/07/21 17:16 Vomiting divalproex sodium AdvReac Nausea & Verified 03/07/21 17:16 [From Depakote] Vomiting doxylamine [From NyQuil] AdvReac face "beet Verified 03/07/21 17:16 red", elevated temp. ibuprofen [From Motrin] AdvReac abdominal Verified 03/07/21 17:16 & muscle cramps indomethacin [From Indocin] AdvReac Abdominal Verified 03/07/21 17:16 Pain,N/V ketorolac tromethamine AdvReac "built up Verified 03/07/21 17:16 [From Toradol] in system", had to be given something to reverse lorazepam [From Ativan] AdvReac Nausea & Verified 03/07/21 17:16 Vomiting memantine [From Namenda] AdvReac Itching Verified 03/07/21 17:16 metoclopramide HCl AdvReac muscle Verified 03/07/21 17:16 [From Reglan] cramps nortriptyline [From Pamelor] AdvReac Chest Pain Verified 03/07/21 17:16 prasterone (DHEA) [From DHEA] AdvReac Chest Pain Verified 03/07/21 17:16 prochlorperazine AdvReac leg Verified 03/07/21 17:16 [From Compazine] cramping propranolol AdvReac Chest Pain Verified 03/07/21 17:16 pseudoephedrine HCl AdvReac face "beet Verified 03/07/21 17:16 [From NyQuil] red", elevated temp. quetiapine [From Seroquel] AdvReac leg Verified 03/07/21 17:16 cramping sumatriptan [From Imitrex] AdvReac migrane Verified 03/07/21 17:16 sumatriptan succinate AdvReac migrane Verified 03/07/21 17:16 [From Imitrex] topiramate [From Topamax] AdvReac "built up Verified 03/07/21 17:16 in system", had to be given something to reverse trazodone AdvReac "built up Verified 03/07/21 17:16 in system", had to be given something to reverse zolpidem tartrate AdvReac "Became Verified 03/07/21 17:16 [From Ambien] violent with no memory" zonisamide [From Zonegran] AdvReac inability Verified 03/07/21 17:16 to eat prosyn Allergy Itching Uncoded 02/25/21 00:10 artificial sweetener AdvReac SEVERE Uncoded 02/25/21 00:10 MIGRAINE HEADACHE Review of Systems ROS Statement: Those systems with pertinent positive or pertinent negative responses have been documented in the HPI. ROS Other: All systems not noted in ROS Statement are negative. Past Medical History Past Medical History: Hyperlipidemia, Hypertension, Seizure Disorder Additional Past Medical History / Comment(s): Migraines, viral meningitis x3 as a child, 1995, 2000, chronic back pain, nerve blocks 08/2016 and 12/2016. Last seizure 10/10/2020, "ABSENT SEIZURES. HX TACHYCARDIA, GBS/CIPD, PTSD. History of Any Multi-Drug Resistant Organisms: None Reported Past Surgical History: Appendectomy, Section, Cholecystectomy, Hernia Repair, Hysterectomy, Orthopedic Surgery, Tonsillectomy, Tubal Ligation Additional Past Surgical History / Comment(s): Hiatal Hernia, umbilical hernia repair, left rotator cuff repair, bilateral knee scopes, pain clinic procedures- occipital nerve block. abd exploratory sx(endometreosis), 3 abd scopes 1981, 1989, 1991), lumbar puncture. EGD. nerve biopsy, salvalry gland biospy Past Anesthesia/Blood Transfusion Reactions: No Reported Reaction Additional Past Anesthesia/Blood Transfusion Reaction / Comment(s): Claustrophobic Past Psychological History: Anxiety, Bipolar, Panic Disorder, PTSD Smoking Status: Current every day smoker Past Alcohol Use History: None Reported Past Drug Use History: None Reported - Past Family History Mother Family Medical History: Cancer, Dementia, Diabetes Mellitus, GERD/Reflux, Hyperlipidemia, Hypertension, Thyroid Disorder Additional Family Medical History / Comment(s): Quad CABG, cardiac stents, toes ampuated and left leg amputated Father History Unknown: Yes Family Medical History: No Reported History General Exam Limitations: no limitations General appearance: anxious, in distress Head exam: Present: atraumatic, normocephalic, normal inspection Eye exam: Present: normal appearance, PERRL, EOMI. Absent: scleral icterus, conjunctival injection, periorbital swelling ENT exam: Present: normal exam, mucous membranes moist Neck exam: Present: normal inspection. Absent: tenderness, meningismus, lymphadenopathy Respiratory exam: Present: normal lung sounds bilaterally. Absent: respiratory distress, wheezes, rales, rhonchi, stridor Cardiovascular Exam: Present: normal rhythm, tachycardia, normal heart sounds. Absent: systolic murmur, diastolic murmur, rubs, gallop, clicks GI/Abdominal exam: Present: soft, normal bowel sounds. Absent: distended, tenderness, guarding, rebound, rigid Extremities exam: Present: normal inspection, full ROM, normal capillary refill. Absent: tenderness, pedal edema, joint swelling, calf tenderness Back exam: Present: normal inspection Neurological exam: Present: alert, oriented X3, CN II-XII intact Psychiatric exam: Present: normal affect, normal mood Skin exam: Present: warm, dry, intact, normal color. Absent: rash Course Vital Signs 02/18/21 21:55 Temperature 98.3 F Pulse Rate 123 H Respiratory 18 Rate Blood Pressure 149/97 O2 Sat by Pulse 97 Oximetry - Reevaluation(s) Reevaluation #1: Medical records reviewed Patient has significant improvement here in the emergency department Patient informed results and questions answered Medical Decision Making - Medical Decision Making 51 female to the emergency department for evaluation of headaches and migraine headaches. Ration his headache is resolved here in the ER she can be discharged home Disposition Clinical Impression: Headache, Nausea and vomiting, Migraine Disposition: HOME SELF-CARE Condition: Good Instructions (If sedation given, give patient instructions): Acute Headache (ED) Is patient prescribed a controlled substance at d/c from ED?: No Referrals: José Reece MD [Primary Care Provider] - 1-2 days
[2021-02-19] MEDS ORDERED: HYDROmorphone 1 MG/ML 1 ML SYRINGE IVP STA (00:29)
== END 2021-02-19 02:09 | disposition home or self-care (01) ==
LOC: EC 21:43
DX: G43.909 Migraine, unspecified, not intractable, without status migrainosus (principal); I10 Essential (primary) hypertension; E78.5 Hyperlipidemia, unspecified; G40.909 Epilepsy, unspecified, not intractable, without status epilepticus; F31.9 Bipolar disorder, unspecified; F41.9 Anxiety disorder, unspecified; F17.200 Nicotine dependence, unspecified, uncomplicated; Z79.51 Long term (current) use of inhaled steroids; Z79.899 Other long term (current) drug therapy; Z88.0 Allergy status to penicillin; Z88.5 Allergy status to narcotic agent; Z88.1 Allergy status to other antibiotic agents; Z88.8 Allergy status to other drugs, medicaments and biological substances
CPT/HCPCS: 99283; 96374; 96375 ×2; 96376; 96361 ×3; J1200; J1170 ×2; J1790

== ENCOUNTER 2021-02-25 | Emergency (ER) | payer OTHER ==
[2021-02-25 00:10] VITALS: RESP 22; TEMP 98.6
[2021-02-25] MEDS ORDERED: HYDROmorphone 1 MG/ML 1 ML SYRINGE IVP STA ×2 (01:40→03:12)
[2021-02-25] MEDS ORDERED: diphenhydrAMINE 50 MG/ML 1 ML VIAL IVP STA (01:40)
[2021-02-25] MEDS ORDERED: SODIUM CHLORIDE 0.9% 500 ML 500 ML IV ONE (01:41)
--- NOTE | 2021-02-25 02:52 | ED ---
Headache HPI - General Chief Complaint: Headache Stated Complaint: Migraine Time Seen by Provider: 02/25/21 00:56 Mode of arrival: ambulatory Limitations: no limitations - History of Present Illness Initial Comments: 50-year-old female patient presents to the emergency department today for evaluation of migraine headache. She has multiple medical problems including history of seizures and migraines. This headache started yesterday after having multiple seizures. States seizures are generally a trigger for her migraines. States she has taken her home medication attempted acupressure and hot and cold massages without relief. He reports photosensitivity and nausea. Denies any vomiting. Denies any dizziness or weakness. Denies any new symptoms with this migraine. States her symptoms are consistent with her usual migraine pattern. Denies any fever or chills. Tested negative for COVID-19 Friday. - Related Data Home Medications Medication Instructions Recorded Confirmed Galcanezumab-Gnlm [Emgality Pen] 120 mg SQ Q30D 04/28/20 01/04/21 amLODIPine [Norvasc] 5 mg PO DAILY 04/28/20 01/04/21 Albuterol Inhaler [Ventolin Hfa 1 - 2 puff INHALATION RT-Q6H PRN 11/15/20 01/04/21 Inhaler] Omeprazole [PriLOSEC] 20 mg PO BID 12/15/20 01/04/21 Thiamine [Vitamin B-1] 100 mg PO DAILY 01/04/21 01/04/21 Previous Rx's Medication Instructions Recorded HYDROcodone/APAP 7.5-325MG [[place] 1 tab PO TID PRN #12 tab 11/17/20 7.5-325] Potassium Chloride ER [K-Dur 20] 20 meq PO BID 7 Days #14 tab 12/15/20 Lacosamide [Vimpat] 100 mg PO BID 7 Days #14 tab 01/16/21 Allergies Allergy/AdvReac Type Severity Reaction Status Date / Time dihydroergotamine Allergy Unknown Unknown Verified 02/25/21 00:10 [From Migranal] gabapentin [From Neurontin] Allergy Itching/Swe Verified 02/25/21 00:10 lling latex Allergy Anaphylaxis Verified 02/25/21 00:10 naproxen [From Naprosyn] Allergy Anaphylaxis Verified 02/25/21 00:10 Penicillins Allergy Anaphylaxis Verified 02/25/21 00:10 prednisone Allergy Swelling Verified 02/25/21 00:10 quetiapine fumarate Allergy Itching, Verified 02/25/21 00:10 [From Seroquel] leg cramps rofecoxib [From Vioxx] Allergy Itching, Verified 02/25/21 00:10 leg cramps terfenadine [From Seldane] Allergy Rash/Hives Verified 02/25/21 00:10 tramadol Allergy Nausea & Verified 02/25/21 00:10 Vomiting/LEG CRAMPS/HEART FLUTTERS calcium carbonate [From DHEA] AdvReac Chest Pain Verified 02/25/21 00:10 calcium phosphate,dibasic AdvReac Chest Pain Verified 02/25/21 00:10 [From DHEA] clindamycin AdvReac muscle Verified 02/25/21 00:10 cramps clonidine AdvReac fast Verified 02/25/21 00:10 heartbeat, migraine dextromethorphan HBr AdvReac face/neck Verified 02/25/21 00:10 [From NyQuil] flushing diazepam [From Valium] AdvReac Nausea & Verified 02/25/21 00:10 Vomiting divalproex sodium AdvReac Nausea & Verified 02/25/21 00:10 [From Depakote] Vomiting doxylamine [From NyQuil] AdvReac face "beet Verified 02/25/21 00:10 red", elevated temp. ibuprofen [From Motrin] AdvReac abdominal Verified 02/25/21 00:10 & muscle cramps indomethacin [From Indocin] AdvReac Abdominal Verified 02/25/21 00:10 Pain,N/V ketorolac tromethamine AdvReac "built up Verified 02/25/21 00:10 [From Toradol] in system", had to be given something to reverse lorazepam [From Ativan] AdvReac Nausea & Verified 02/25/21 00:10 Vomiting memantine [From Namenda] AdvReac Itching Verified 02/25/21 00:10 metoclopramide HCl AdvReac muscle Verified 02/25/21 00:10 [From Reglan] cramps nortriptyline [From Pamelor] AdvReac Chest Pain Verified 02/25/21 00:10 prasterone (DHEA) [From DHEA] AdvReac Chest Pain Verified 02/25/21 00:10 prochlorperazine AdvReac leg Verified 02/25/21 00:10 [From Compazine] cramping propranolol AdvReac Chest Pain Verified 02/25/21 00:10 pseudoephedrine HCl AdvReac face "beet Verified 02/25/21 00:10 [From NyQuil] red", elevated temp. quetiapine [From Seroquel] AdvReac leg Verified 02/25/21 00:10 cramping sumatriptan [From Imitrex] AdvReac migrane Verified 02/25/21 00:10 sumatriptan succinate AdvReac migrane Verified 02/25/21 00:10 [From Imitrex] topiramate [From Topamax] AdvReac "built up Verified 02/25/21 00:10 in system", had to be given something to reverse trazodone AdvReac "built up Verified 02/25/21 00:10 in system", had to be given something to reverse zolpidem tartrate AdvReac "Became Verified 02/25/21 00:10 [From Ambien] violent with no memory" zonisamide [From Zonegran] AdvReac inability Verified 02/25/21 00:10 to eat prosyn Allergy Itching Uncoded 02/25/21 00:10 artificial sweetener AdvReac SEVERE Uncoded 02/25/21 00:10 MIGRAINE HEADACHE Review of Systems ROS Statement: Those systems with pertinent positive or pertinent negative responses have been documented in the HPI. ROS Other: All systems not noted in ROS Statement are negative. Past Medical History Past Medical History: Hyperlipidemia, Hypertension, Seizure Disorder Additional Past Medical History / Comment(s): Migraines, viral meningitis x3 as a child, 1995, 2000, chronic back pain, nerve blocks 08/2016 and 12/2016. Last seizure 10/10/2020, "ABSENT SEIZURES. HX TACHYCARDIA, GBS/CIPD, PTSD. History of Any Multi-Drug Resistant Organisms: None Reported Past Surgical History: Appendectomy, Section, Cholecystectomy, Hernia Repair, Hysterectomy, Orthopedic Surgery, Tonsillectomy, Tubal Ligation Additional Past Surgical History / Comment(s): Hiatal Hernia, umbilical hernia repair, left rotator cuff repair, bilateral knee scopes, pain clinic procedures- occipital nerve block. abd exploratory sx(endometreosis), 3 abd scopes 1981, 1989, 1991), lumbar puncture. EGD. nerve biopsy, salvalry gland biospy Past Anesthesia/Blood Transfusion Reactions: No Reported Reaction Additional Past Anesthesia/Blood Transfusion Reaction / Comment(s): Claustrophobic Past Psychological History: Anxiety, Bipolar, Panic Disorder, PTSD Smoking Status: Current every day smoker Past Alcohol Use History: None Reported Past Drug Use History: None Reported - Past Family History Mother Family Medical History: Cancer, Dementia, Diabetes Mellitus, GERD/Reflux, Hyperlipidemia, Hypertension, Thyroid Disorder Additional Family Medical History / Comment(s): Quad CABG, cardiac stents, toes ampuated and left leg amputated Father History Unknown: Yes Family Medical History: No Reported History General Exam Limitations: no limitations General appearance: alert, in no apparent distress, other (This is a well- developed, well-nourished adult female in no acute distress.) Eye exam: Present: normal appearance, PERRL, EOMI. Absent: scleral icterus, conjunctival injection, nystagmus, periorbital swelling ENT exam: Present: normal exam, normal oropharynx Respiratory exam: Present: normal lung sounds bilaterally. Absent: respiratory distress, wheezes, rales, rhonchi, stridor Cardiovascular Exam: Present: regular rate, normal rhythm, normal heart sounds. Absent: systolic murmur, diastolic murmur, rubs, gallop, clicks GI/Abdominal exam: Present: soft, normal bowel sounds. Absent: distended, tenderness, guarding, rebound, rigid Neurological exam: Present: alert, oriented X3, CN II-XII intact Expanded Speech: Present: fluid speech Cranial nerves: EOM's Intact: Normal, Nystagmus: Normal Motor strength exam: RUE: 5, LUE: 5 Psychiatric exam: Present: normal affect, normal mood Skin exam: Present: warm, dry, intact, normal color. Absent: rash Course Vital Signs 02/25/21 00:07 Temperature 98.6 F Pulse Rate 112 H Respiratory 22 Rate Blood Pressure 139/97 O2 Sat by Pulse 100 Oximetry Medical Decision Making - Medical Decision Making 50-year-old female patient presents for evaluation of migraine headache. Patient has extensive history of migraines. This migraine is not different for her. States her symptoms are consistent with her usual migraine pattern. She is given IV fluids, IV pain medication. States it did slightly improve her symptoms. We'll repeat doses her go home. She is instructed about her primary care physician as soon as possible. Return parameters were discussed in detail. She verbalizes understanding and agrees with this plan. My attending is Dr. Mclaughlin. Disposition Clinical Impression: Migraine headache Disposition: HOME SELF-CARE Condition: Good Instructions (If sedation given, give patient instructions): Migraine Headache (ED) Is patient prescribed a controlled substance at d/c from ED?: No Referrals: José Reece MD [Primary Care Provider] - 1-2 days Time of Disposition: 03:13
[2021-02-25 03:44] VITALS: BP 142/84; PULSE 98
== END 2021-02-25 03:44 | disposition home or self-care (01) ==
LOC: EC
DX: G43.909 Migraine, unspecified, not intractable, without status migrainosus (principal); I10 Essential (primary) hypertension; E78.5 Hyperlipidemia, unspecified; G40.909 Epilepsy, unspecified, not intractable, without status epilepticus; F31.9 Bipolar disorder, unspecified; F41.9 Anxiety disorder, unspecified; F17.200 Nicotine dependence, unspecified, uncomplicated; Z79.51 Long term (current) use of inhaled steroids; Z79.899 Other long term (current) drug therapy
CPT/HCPCS: 99283; 96374; 96375 ×2; 96376; J1200; J1642; J1170

== ENCOUNTER 2021-03-02 21:10 | Emergency (ER) | payer OTHER ==
[2021-03-02 21:22] VITALS: BP 154/103; PULSE 113; RESP 18; TEMP 98.7
[2021-03-02] MEDS ORDERED: SODIUM CHLORIDE 0.9% 1,000 ML IV STA (22:04)
[2021-03-02] MEDS ORDERED: diphenhydrAMINE 50 MG/ML 1 ML VIAL IVP STA (22:05)
[2021-03-02] MEDS ORDERED: HYDROmorphone 1 MG/ML 1 ML SYRINGE IVP STA ×2 (22:09→23:48)
--- NOTE | 2021-03-02 22:15 | ED ---
Headache HPI - General Chief Complaint: Seizure Stated Complaint: Seizure, Migraine Time Seen by Provider: 03/02/21 21:29 Source: RN notes reviewed, old records reviewed Mode of arrival: wheelchair Limitations: no limitations - History of Present Illness Initial Comments: This is a 50-year-old female one of these were department. Patient Dese for evaluation of headache (history of seizures and states his headache is been leading to seizures. This is her third visit this week for similar symptoms. Patient denies any trauma or fevers. Unable to keep her medications down at home. No new symptoms MD Complaint: headache, "migraine" -: days(s) Onset Description: gradual Location: frontal, temporal Severity: severe Severity scale (1-10): 10 Quality: aching, throbbing, constant, similar to previous headaches Consistency: constant Improves With: nothing Worsens With: none Context: recent head injury Associated Symptoms: nausea, vomiting Other Symptoms: malaise Treatments Prior to Arrival: none - Related Data Home Medications Medication Instructions Recorded Confirmed Galcanezumab-Gnlm [Emgality Pen] 120 mg SQ Q30D 04/28/20 01/04/21 amLODIPine [Norvasc] 5 mg PO DAILY 04/28/20 01/04/21 Albuterol Inhaler [Ventolin Hfa 1 - 2 puff INHALATION RT-Q6H PRN 11/15/20 01/04/21 Inhaler] Omeprazole [PriLOSEC] 20 mg PO BID 12/15/20 01/04/21 Thiamine [Vitamin B-1] 100 mg PO DAILY 01/04/21 01/04/21 Previous Rx's Medication Instructions Recorded HYDROcodone/APAP 7.5-325MG [[place] 1 tab PO TID PRN #12 tab 11/17/20 7.5-325] Potassium Chloride ER [K-Dur 20] 20 meq PO BID 7 Days #14 tab 12/15/20 Lacosamide [Vimpat] 100 mg PO BID 7 Days #14 tab 01/16/21 Allergies Allergy/AdvReac Type Severity Reaction Status Date / Time dihydroergotamine Allergy Unknown Unknown Verified 03/02/21 21:22 [From Migranal] gabapentin [From Neurontin] Allergy Itching/Swe Verified 03/02/21 21:22 lling latex Allergy Anaphylaxis Verified 03/02/21 21:22 naproxen [From Naprosyn] Allergy Anaphylaxis Verified 03/02/21 21:22 Penicillins Allergy Anaphylaxis Verified 03/02/21 21:22 prednisone Allergy Swelling Verified 03/02/21 21:22 quetiapine fumarate Allergy Itching, Verified 03/02/21 21:22 [From Seroquel] leg cramps rofecoxib [From Vioxx] Allergy Itching, Verified 03/02/21 21:22 leg cramps terfenadine [From Seldane] Allergy Rash/Hives Verified 03/02/21 21:22 tramadol Allergy Nausea & Verified 03/02/21 21:22 Vomiting/LEG CRAMPS/HEART FLUTTERS calcium carbonate [From DHEA] AdvReac Chest Pain Verified 03/02/21 21:22 calcium phosphate,dibasic AdvReac Chest Pain Verified 03/02/21 21:22 [From DHEA] clindamycin AdvReac muscle Verified 03/02/21 21:22 cramps clonidine AdvReac fast Verified 03/02/21 21:22 heartbeat, migraine dextromethorphan HBr AdvReac face/neck Verified 03/02/21 21:22 [From NyQuil] flushing diazepam [From Valium] AdvReac Nausea & Verified 03/02/21 21:22 Vomiting divalproex sodium AdvReac Nausea & Verified 03/02/21 21:22 [From Depakote] Vomiting doxylamine [From NyQuil] AdvReac face "beet Verified 03/02/21 21:22 red", elevated temp. ibuprofen [From Motrin] AdvReac abdominal Verified 03/02/21 21:22 & muscle cramps indomethacin [From Indocin] AdvReac Abdominal Verified 03/02/21 21:22 Pain,N/V ketorolac tromethamine AdvReac "built up Verified 03/02/21 21:22 [From Toradol] in system", had to be given something to reverse lorazepam [From Ativan] AdvReac Nausea & Verified 03/02/21 21:22 Vomiting memantine [From Namenda] AdvReac Itching Verified 03/02/21 21:22 metoclopramide HCl AdvReac muscle Verified 03/02/21 21:22 [From Reglan] cramps nortriptyline [From Pamelor] AdvReac Chest Pain Verified 03/02/21 21:22 prasterone (DHEA) [From DHEA] AdvReac Chest Pain Verified 03/02/21 21:22 prochlorperazine AdvReac leg Verified 03/02/21 21:22 [From Compazine] cramping propranolol AdvReac Chest Pain Verified 03/02/21 21:22 pseudoephedrine HCl AdvReac face "beet Verified 03/02/21 21:22 [From NyQuil] red", elevated temp. quetiapine [From Seroquel] AdvReac leg Verified 03/02/21 21:22 cramping sumatriptan [From Imitrex] AdvReac migrane Verified 03/02/21 21:22 sumatriptan succinate AdvReac migrane Verified 03/02/21 21:22 [From Imitrex] topiramate [From Topamax] AdvReac "built up Verified 03/02/21 21:22 in system", had to be given something to reverse trazodone AdvReac "built up Verified 03/02/21 21:22 in system", had to be given something to reverse zolpidem tartrate AdvReac "Became Verified 03/02/21 21:22 [From Ambien] violent with no memory" zonisamide [From Zonegran] AdvReac inability Verified 03/02/21 21:22 to eat prosyn Allergy Itching Uncoded 02/25/21 00:10 artificial sweetener AdvReac SEVERE Uncoded 02/25/21 00:10 MIGRAINE HEADACHE Review of Systems ROS Statement: Those systems with pertinent positive or pertinent negative responses have been documented in the HPI. ROS Other: All systems not noted in ROS Statement are negative. Past Medical History Past Medical History: Hyperlipidemia, Hypertension, Seizure Disorder Additional Past Medical History / Comment(s): Migraines, viral meningitis x3 as a child, 1995, 2000, chronic back pain, nerve blocks 08/2016 and 12/2016. Last seizure 10/10/2020, "ABSENT SEIZURES. HX TACHYCARDIA, GBS/CIPD, PTSD. History of Any Multi-Drug Resistant Organisms: None Reported Past Surgical History: Appendectomy, Section, Cholecystectomy, Hernia Repair, Hysterectomy, Orthopedic Surgery, Tonsillectomy, Tubal Ligation Additional Past Surgical History / Comment(s): Hiatal Hernia, umbilical hernia repair, left rotator cuff repair, bilateral knee scopes, pain clinic procedures- occipital nerve block. abd exploratory sx(endometreosis), 3 abd scopes 1981, 1989, 1991), lumbar puncture. EGD. nerve biopsy, salvalry gland biospy Past Anesthesia/Blood Transfusion Reactions: No Reported Reaction Additional Past Anesthesia/Blood Transfusion Reaction / Comment(s): Claustrophobic Past Psychological History: Anxiety, Bipolar, Panic Disorder, PTSD Smoking Status: Current every day smoker Past Alcohol Use History: None Reported Past Drug Use History: None Reported - Past Family History Mother Family Medical History: Cancer, Dementia, Diabetes Mellitus, GERD/Reflux, Hyperlipidemia, Hypertension, Thyroid Disorder Additional Family Medical History / Comment(s): Quad CABG, cardiac stents, toes ampuated and left leg amputated Father History Unknown: Yes Family Medical History: No Reported History General Exam Limitations: no limitations General appearance: alert, in no apparent distress, anxious Head exam: Present: atraumatic, normocephalic, normal inspection Eye exam: Present: normal appearance, PERRL, EOMI. Absent: scleral icterus, conjunctival injection, periorbital swelling ENT exam: Present: normal exam, mucous membranes moist Neck exam: Present: normal inspection. Absent: tenderness, meningismus, lymphadenopathy Respiratory exam: Present: normal lung sounds bilaterally. Absent: respiratory distress, wheezes, rales, rhonchi, stridor Cardiovascular Exam: Present: normal rhythm, tachycardia, normal heart sounds. Absent: systolic murmur, diastolic murmur, rubs, gallop, clicks GI/Abdominal exam: Present: soft, normal bowel sounds. Absent: distended, tenderness, guarding, rebound, rigid Extremities exam: Present: normal inspection, full ROM, normal capillary refill. Absent: tenderness, pedal edema, joint swelling, calf tenderness Back exam: Present: normal inspection Neurological exam: Present: alert, oriented X3, CN II-XII intact Psychiatric exam: Present: normal affect, normal mood Skin exam: Present: warm, dry, intact, normal color. Absent: rash Course Vital Signs 03/02/21 21:21 Temperature 98.7 F Pulse Rate 113 H Respiratory 18 Rate Blood Pressure 154/103 O2 Sat by Pulse 98 Oximetry - Reevaluation(s) Reevaluation #1: 03/02/21 22:26 medical record is reviewed Reevaluation #2: 03/02/21 23:39 Patient's headache is much improved currently Reevaluation #3: 03/02/21 23:40 Patient informed of results and questions answered Medical Decision Making - Medical Decision Making 42 female with recurrent headache recurrent migraine headache, current headache is improved, okay for discharge home. - Lab Data Result diagrams: 03/02/21 22:35 03/02/21 22:35 Lab Results 03/02/21 03/02/21 03/02/21 Range/Units 22:35 22:35 22:35 WBC 12.3 H (3.8-10.6) k/uL RBC 3.84 (3.80-5.40) m/uL Hgb 12.3 (11.4-16.0) gm/dL Hct 36.2 (34.0-46.0) % MCV 94.4 (80.0-100.0) fL MCH 32.2 (25.0-35.0) pg MCHC 34.1 (31.0-37.0) g/dL RDW 13.8 (11.5-15.5) % Plt Count 254 (150-450) k/uL MPV 10.0 Neutrophils % 71 % Lymphocytes % 20 % Monocytes % 4 % Eosinophils % 3 % Basophils % 0 % Neutrophils # 8.7 H (1.3-7.7) k/uL Lymphocytes # 2.4 (1.0-4.8) k/uL Monocytes # 0.5 (0-1.0) k/uL Eosinophils # 0.4 (0-0.7) k/uL Basophils # 0.0 (0-0.2) k/uL Sodium 137 (137-145) mmol/L Potassium 3.7 (3.5-5.1) mmol/L Chloride 106 (98-107) mmol/L Carbon Dioxide 26 (22-30) mmol/L Anion Gap 5 mmol/L BUN 12 (7-17) mg/dL Creatinine 0.63 (0.52-1.04) mg/dL Est GFR (CKD-EPI)AfAm >90 (>60 ml/min/1.73 sqM) Est GFR (CKD-EPI)NonAf >90 (>60 ml/min/1.73 sqM) Glucose 94 (74-99) mg/dL Calcium 9.1 (8.4-10.2) mg/dL Phosphorus 3.9 (2.5-4.5) mg/dL Magnesium 2.0 (1.6-2.3) mg/dL Total Bilirubin 0.4 (0.2-1.3) mg/dL AST 129 H (14-36) U/L ALT 119 H (4-34) U/L Alkaline Phosphatase 168 H (38-126) U/L Troponin I <0.012 (0.000-0.034) ng/mL Total Protein 6.3 (6.3-8.2) g/dL Albumin 3.5 (3.5-5.0) g/dL Disposition Clinical Impression: Intractable headache, Migraine, Intractable seizure disorder Disposition: HOME SELF-CARE Condition: Good Instructions (If sedation given, give patient instructions): Seizure/Epilepsy Discharge Instructions & Follow-Up Is patient prescribed a controlled substance at d/c from ED?: No Referrals: José Reece MD [Primary Care Provider] - 1-2 days
[2021-03-02 23:06] LABS: Basophils % (A) 0 %; Eosinophils # (A) 0.4 k/uL (0-0.7); Eosinophils % (A) 3 %; HCT 36.2 % (34.0-46.0); HGB 12.3 gm/dL (11.4-16.0); Lymphocytes # (A) 2.4 k/uL (1.0-4.8); Lymphocytes % (A) 20 %; MCH 32.2 pg (25.0-35.0); MCHC 34.1 g/dL (31.0-37.0); MCV 94.4 fL (80.0-100.0); Monocytes # (A) 0.5 k/uL (0-1.0); Monocytes % (A) 4 %; Neutrophils # (A) 8.7 k/uL (1.3-7.7); Neutrophils % (A) 71 %; Platelet Count 254 k/uL (150-450); RBC 3.84 m/uL (3.80-5.40); RDW 13.8 % (11.5-15.5); WBC 12.3 k/uL (3.8-10.6)
[2021-03-02 23:28] LABS: ALT 119 U/L (4-34); AST 129 U/L (14-36); African American GFR (CKD) >90 (>60 ml/min/1.73 sqM); Albumin 3.5 g/dL (3.5-5.0); Alkaline Phosphatase 168 U/L (38-126); Anion Gap 5 mmol/L; Blood Urea Nitrogen 12 mg/dL (7-17); Calcium 9.1 mg/dL (8.4-10.2); Carbon Dioxide 26 mmol/L (22-30); Chloride 106 mmol/L (98-107); Glucose 94 mg/dL (74-99); Non-African American GFR(CKD) >90 (>60 ml/min/1.73 sqM); Phosphorus 3.9 mg/dL (2.5-4.5); Potassium 3.7 mmol/L (3.5-5.1); Sodium 137 mmol/L (137-145); Total Bilirubin 0.4 mg/dL (0.2-1.3); Total Protein 6.3 g/dL (6.3-8.2)
== END 2021-03-03 00:07 | disposition home or self-care (01) ==
LOC: EC 21:10
DX: G43.909 Migraine, unspecified, not intractable, without status migrainosus (principal); G40.804 Other epilepsy, intractable, without status epilepticus; I10 Essential (primary) hypertension; E78.5 Hyperlipidemia, unspecified; F41.9 Anxiety disorder, unspecified; F31.9 Bipolar disorder, unspecified; F31.2 Bipolar disorder, current episode manic severe with psychotic features; F17.200 Nicotine dependence, unspecified, uncomplicated; Z91.040 Latex allergy status; Z88.0 Allergy status to penicillin; Z88.1 Allergy status to other antibiotic agents; Z88.6 Allergy status to analgesic agent; Z90.49 Acquired absence of other specified parts of digestive tract; Z90.710 Acquired absence of both cervix and uterus; Z98.51 Tubal ligation status
CPT/HCPCS: 99284; 96374; 96375 ×2; 96376; 36415; 80053; 83735; 84100; 84484; 85025; J1200; J1170 ×2; J1790

== ENCOUNTER 2021-03-07 16:32 | Emergency (ER) | payer OTHER ==
[2021-03-07 17:19] VITALS: RESP 18; TEMP 98.2
[2021-03-07] MEDS ORDERED: ONDANSETRON 4 MG/2 ML VIAL IVP STA (21:02)
[2021-03-07] MEDS ORDERED: HYDROmorphone 1 MG/ML 1 ML SYRINGE IVP STA (21:02)
--- NOTE | 2021-03-07 21:38 | ED ---
General Adult HPI - General Chief complaint: Seizure Stated complaint: seizures Time Seen by Provider: 03/07/21 20:46 Source: patient, RN notes reviewed, old records reviewed Mode of arrival: ambulatory Limitations: no limitations - History of Present Illness Initial comments: Patient is a 51-year-old female with history of migraines, seizures, hyperten gertrude, presenting to the emergency Department with complaints of having increase in her seizures over the past few days. Patient is well-known to this ER for similar complaints. Patient states she usually has with her described as absent seizures over the past few months and now has been increasing to having worsening seizures according to the patient's daughter. She does follow with a local neurologist, Dr. Cid, she does have an appointment with him in 2 weeks. She denies any falls or trauma, no fevers, no neck pain. Patient is also complaining of a headache, she feels like her "brain is on fire." She states her headache is rated an 8/10. She denies any chest pain or short of breath, no abdominal pain, she does have some mild nausea, no vomiting or diarrhea. Patient has no further complaints. - Related Data Home Medications Medication Instructions Recorded Confirmed Galcanezumab-Gnlm [Emgality Pen] 120 mg SQ Q30D 04/28/20 01/04/21 amLODIPine [Norvasc] 5 mg PO DAILY 04/28/20 01/04/21 Albuterol Inhaler [Ventolin Hfa 1 - 2 puff INHALATION RT-Q6H PRN 11/15/20 01/04/21 Inhaler] Omeprazole [PriLOSEC] 20 mg PO BID 12/15/20 01/04/21 Thiamine [Vitamin B-1] 100 mg PO DAILY 01/04/21 01/04/21 Previous Rx's Medication Instructions Recorded HYDROcodone/APAP 7.5-325MG [[place] 1 tab PO TID PRN #12 tab 11/17/20 7.5-325] Potassium Chloride ER [K-Dur 20] 20 meq PO BID 7 Days #14 tab 12/15/20 Lacosamide [Vimpat] 100 mg PO BID 7 Days #14 tab 01/16/21 Allergies Allergy/AdvReac Type Severity Reaction Status Date / Time dihydroergotamine Allergy Unknown Unknown Verified 03/07/21 17:16 [From Migranal] gabapentin [From Neurontin] Allergy Itching/Swe Verified 03/07/21 17:16 lling latex Allergy Anaphylaxis Verified 03/07/21 17:16 naproxen [From Naprosyn] Allergy Anaphylaxis Verified 03/07/21 17:16 Penicillins Allergy Anaphylaxis Verified 03/07/21 17:16 prednisone Allergy Swelling Verified 03/07/21 17:16 quetiapine fumarate Allergy Itching, Verified 03/07/21 17:16 [From Seroquel] leg cramps rofecoxib [From Vioxx] Allergy Itching, Verified 03/07/21 17:16 leg cramps terfenadine [From Seldane] Allergy Rash/Hives Verified 03/07/21 17:16 tramadol Allergy Nausea & Verified 03/07/21 17:16 Vomiting/LEG CRAMPS/HEART FLUTTERS calcium carbonate [From DHEA] AdvReac Chest Pain Verified 03/07/21 17:16 calcium phosphate,dibasic AdvReac Chest Pain Verified 03/07/21 17:16 [From DHEA] clindamycin AdvReac muscle Verified 03/07/21 17:16 cramps clonidine AdvReac fast Verified 03/07/21 17:16 heartbeat, migraine dextromethorphan HBr AdvReac face/neck Verified 03/07/21 17:16 [From NyQuil] flushing diazepam [From Valium] AdvReac Nausea & Verified 03/07/21 17:16 Vomiting divalproex sodium AdvReac Nausea & Verified 03/07/21 17:16 [From Depakote] Vomiting doxylamine [From NyQuil] AdvReac face "beet Verified 03/07/21 17:16 red", elevated temp. ibuprofen [From Motrin] AdvReac abdominal Verified 03/07/21 17:16 & muscle cramps indomethacin [From Indocin] AdvReac Abdominal Verified 03/07/21 17:16 Pain,N/V ketorolac tromethamine AdvReac "built up Verified 03/07/21 17:16 [From Toradol] in system", had to be given something to reverse lorazepam [From Ativan] AdvReac Nausea & Verified 03/07/21 17:16 Vomiting memantine [From Namenda] AdvReac Itching Verified 03/07/21 17:16 metoclopramide HCl AdvReac muscle Verified 03/07/21 17:16 [From Reglan] cramps nortriptyline [From Pamelor] AdvReac Chest Pain Verified 03/07/21 17:16 prasterone (DHEA) [From DHEA] AdvReac Chest Pain Verified 03/07/21 17:16 prochlorperazine AdvReac leg Verified 03/07/21 17:16 [From Compazine] cramping propranolol AdvReac Chest Pain Verified 03/07/21 17:16 pseudoephedrine HCl AdvReac face "beet Verified 03/07/21 17:16 [From NyQuil] red", elevated temp. quetiapine [From Seroquel] AdvReac leg Verified 03/07/21 17:16 cramping sumatriptan [From Imitrex] AdvReac migrane Verified 03/07/21 17:16 sumatriptan succinate AdvReac migrane Verified 03/07/21 17:16 [From Imitrex] topiramate [From Topamax] AdvReac "built up Verified 03/07/21 17:16 in system", had to be given something to reverse trazodone AdvReac "built up Verified 03/07/21 17:16 in system", had to be given something to reverse zolpidem tartrate AdvReac "Became Verified 03/07/21 17:16 [From Ambien] violent with no memory" zonisamide [From Zonegran] AdvReac inability Verified 03/07/21 17:16 to eat prosyn Allergy Itching Uncoded 02/25/21 00:10 artificial sweetener AdvReac SEVERE Uncoded 02/25/21 00:10 MIGRAINE HEADACHE Review of Systems ROS Statement: Those systems with pertinent positive or pertinent negative responses have been documented in the HPI. ROS Other: All systems not noted in ROS Statement are negative. Past Medical History Past Medical History: Hyperlipidemia, Hypertension, Seizure Disorder Additional Past Medical History / Comment(s): Migraines, viral meningitis x3 as a child, 1995, 2000, chronic back pain, nerve blocks 08/2016 and 12/2016. Last seizure 10/10/2020, "ABSENT SEIZURES. HX TACHYCARDIA, GBS/CIPD, PTSD. History of Any Multi-Drug Resistant Organisms: None Reported Past Surgical History: Appendectomy, Section, Cholecystectomy, Hernia Repair, Hysterectomy, Orthopedic Surgery, Tonsillectomy, Tubal Ligation Additional Past Surgical History / Comment(s): Hiatal Hernia, umbilical hernia repair, left rotator cuff repair, bilateral knee scopes, pain clinic procedures-occipital nerve block. abd exploratory sx(endometreosis), 3 abd scopes 1981, 1989, 1991), lumbar puncture. EGD. nerve biopsy, salvalry gland biospy Past Anesthesia/Blood Transfusion Reactions: No Reported Reaction Additional Past Anesthesia/Blood Transfusion Reaction / Comment(s): Claustrophobic Past Psychological History: Anxiety, Bipolar, Panic Disorder, PTSD Smoking Status: Current every day smoker Past Alcohol Use History: None Reported Past Drug Use History: None Reported - Past Family History Mother Family Medical History: Cancer, Dementia, Diabetes Mellitus, GERD/Reflux, Hyperlipidemia, Hypertension, Thyroid Disorder Additional Family Medical History / Comment(s): Quad CABG, cardiac stents, toes ampuated and left leg amputated Father History Unknown: Yes Family Medical History: No Reported History General Exam - General Exam Comments Initial Comments: GENERAL: Patient is well-developed and well-nourished. Patient is nontoxic and in no acute distress. HEAD: Atraumatic, normocephalic. EYES: Pupils equal round and reactive to light, extraocular movements intact, sclera anicteric, conjunctiva are normal. Eyelids were unremarkable. ENT: TMs normal, nares patent, oropharynx clear without exudates. Moist mucous membranes. NECK: Normal range of motion, supple without lymphadenopathy or JVD. LUNGS: Unlabored respirations. Breath sounds clear to auscultation bilaterally and equal. No wheezes rales or rhonchi. HEART: Regular rate and rhythm without murmurs, rubs or gallops. ABDOMEN: Soft, nontender, normoactive bowel sounds. No guarding, no rebound. No masses appreciated. MUSCULOSKELETAL: Normal extremities with adequate strength and normal range of motion, no pitting or edema. No clubbing or cyanosis. NEUROLOGICAL: Patient is alert and oriented x 3. Motor and sensory are also intact. Cranial nerves II through XII grossly intact. Symmetrical smile. Normal speech, normal gait. PSYCH: Normal mood, normal affect. SKIN: Warm, Dry, normal turgor, no rashes or lesions noted. Limitations: no limitations Course Vital Signs 03/07/21 03/07/21 17:16 22:00 Temperature 98.2 F Pulse Rate 124 H 109 H Respiratory 18 18 Rate Blood Pressure 143/99 140/100 O2 Sat by Pulse 97 97 Oximetry EKG Findings - EKG Comments: EKG Findings:: Sinus tachycardia, otherwise normal ECG. Similar to previous on 12/15/2020. Ventricular rate 103, WI interval 144, QT 344. Medical Decision Making - Medical Decision Making Patient is a 51-year-old female with history of migraines, seizures, presenting for increase in her seizures over the past few days. No falls or trauma, patient is well-known to this ER. Patient's vitals are stable, her exam is revealing no acute neuro deficits. EKG is normal. Labs are unremarkable, patient was given pain control, and reports some mild improvement in her symptoms. I recommended following up with a neurologist. She has an appointment with him in a week and a half. Patient is stable for discharge, she is agreeable to this plan of care. She will also follow up with her doctors at [facility]. Return parameters were discussed with her and she verbalized understanding. - Lab Data Result diagrams: 03/07/21 21:41 03/07/21 21:41 Lab Results 03/07/21 03/07/21 03/07/21 Range/Units 21:41 21:41 21:41 WBC 11.1 H (3.8-10.6) k/uL RBC 3.95 (3.80-5.40) m/uL Hgb 12.6 (11.4-16.0) gm/dL Hct 37.1 (34.0-46.0) % MCV 94.0 (80.0-100.0) fL MCH 32.0 (25.0-35.0) pg MCHC 34.0 (31.0-37.0) g/dL RDW 13.9 (11.5-15.5) % Plt Count 283 (150-450) k/uL MPV 9.0 Neutrophils % 64 % Lymphocytes % 28 % Monocytes % 5 % Eosinophils % 1 % Basophils % 1 % Neutrophils # 7.1 (1.3-7.7) k/uL Lymphocytes # 3.1 (1.0-4.8) k/uL Monocytes # 0.5 (0-1.0) k/uL Eosinophils # 0.1 (0-0.7) k/uL Basophils # 0.1 (0-0.2) k/uL Sodium 136 L (137-145) mmol/L Potassium 3.3 L (3.5-5.1) mmol/L Chloride 104 (98-107) mmol/L Carbon Dioxide 26 (22-30) mmol/L Anion Gap 6 mmol/L BUN 4 L (7-17) mg/dL Creatinine 0.65 (0.52-1.04) mg/dL Est GFR (CKD-EPI)AfAm >90 (>60 ml/min/1.73 sqM) Est GFR (CKD-EPI)NonAf >90 (>60 ml/min/1.73 sqM) Glucose 102 H (74-99) mg/dL Calcium 9.0 (8.4-10.2) mg/dL Magnesium 2.1 (1.6-2.3) mg/dL Total Bilirubin 0.5 (0.2-1.3) mg/dL AST 22 (14-36) U/L ALT 32 (4-34) U/L Alkaline Phosphatase 134 H (38-126) U/L Total Protein 6.6 (6.3-8.2) g/dL Albumin 3.7 (3.5-5.0) g/dL Disposition Clinical Impression: Headache, Seizure Disposition: HOME SELF-CARE Condition: Stable Instructions (If sedation given, give patient instructions): Recurrent Seizures in Adults (ED) Additional Instructions: Please return to the Emergency Department if symptoms worsen or any other concerns. Please follow-up with your neurologist as already discussed. Is patient prescribed a controlled substance at d/c from ED?: No Referrals: José Reece MD [Primary Care Provider] - 1-2 days Time of Disposition: 22:45
[2021-03-07 21:46] LABS: Basophils # (A) 0.1 k/uL (0-0.2); Basophils % (A) 1 %; Eosinophils # (A) 0.1 k/uL (0-0.7); Eosinophils % (A) 1 %; HCT 37.1 % (34.0-46.0); HGB 12.6 gm/dL (11.4-16.0); Lymphocytes # (A) 3.1 k/uL (1.0-4.8); Lymphocytes % (A) 28 %; Monocytes # (A) 0.5 k/uL (0-1.0); Monocytes % (A) 5 %; Neutrophils # (A) 7.1 k/uL (1.3-7.7); Neutrophils % (A) 64 %; Platelet Count 283 k/uL (150-450); RBC 3.95 m/uL (3.80-5.40); RDW 13.9 % (11.5-15.5); WBC 11.1 k/uL (3.8-10.6)
[2021-03-07 21:55] LABS: ALT 32 U/L (4-34); AST 22 U/L (14-36); African American GFR (CKD) >90 (>60 ml/min/1.73 sqM); Albumin 3.7 g/dL (3.5-5.0); Alkaline Phosphatase 134 U/L (38-126); Anion Gap 6 mmol/L; Blood Urea Nitrogen 4 mg/dL (7-17); Carbon Dioxide 26 mmol/L (22-30); Chloride 104 mmol/L (98-107); Glucose 102 mg/dL (74-99); Non-African American GFR(CKD) >90 (>60 ml/min/1.73 sqM); Potassium 3.3 mmol/L (3.5-5.1); Sodium 136 mmol/L (137-145); Total Bilirubin 0.5 mg/dL (0.2-1.3); Total Protein 6.6 g/dL (6.3-8.2)
[2021-03-07 22:23] VITALS: BP 140/100; PULSE 109
[2021-03-07] MEDS ORDERED: HYDROmorphone 0.5 MG/0.5 ML SYRINGE IVP STA (22:44)
[2021-03-07] MEDS ORDERED: diphenhydrAMINE 50 MG/ML 1 ML VIAL IVP STA (22:44)
== END 2021-03-07 23:07 | disposition home or self-care (01) ==
LOC: EC 16:32
DX: R51.9 Headache, unspecified (principal); R56.9 Unspecified convulsions; E78.5 Hyperlipidemia, unspecified; I10 Essential (primary) hypertension; G43.909 Migraine, unspecified, not intractable, without status migrainosus; F31.9 Bipolar disorder, unspecified; F41.0 Panic disorder [episodic paroxysmal anxiety]; F43.10 Post-traumatic stress disorder, unspecified; F17.200 Nicotine dependence, unspecified, uncomplicated
CPT/HCPCS: 36415; 93005; 80053; 83735; 85025; 99284; 96374; 96375 ×2; 96376; J1200; J2405; J1170 ×2

== ENCOUNTER 2021-03-18 17:34 | Emergency (ER) | payer OTHER ==
[2021-03-18 18:06] VITALS: BP 130/87; PULSE 103; RESP 18; TEMP 98.2
[2021-03-18] MEDS ORDERED: diphenhydrAMINE 50 MG/ML 1 ML VIAL IVP STA (19:28)
[2021-03-18] MEDS ORDERED: ONDANSETRON 4 MG/2 ML VIAL IVP STA (19:28)
[2021-03-18] MEDS ORDERED: HYDROmorphone 1 MG/ML 1 ML SYRINGE IVP STA (19:28)
[2021-03-18] MEDS ORDERED: MORPHINE SULFATE 4 MG/ML SYRINGE IVP STA (20:36)
--- NOTE | 2021-03-18 21:37 | ED ---
Headache HPI - General Chief Complaint: Headache Stated Complaint: Migraine Time Seen by Provider: 03/18/21 19:28 Source: patient, RN notes reviewed Mode of arrival: wheelchair Limitations: no limitations - History of Present Illness Initial Comments: A she is a 51-year-old female that is well-known to the emergency room. She notes she comes to the emergency room for pain relief for migraine type headaches frequently. She denied any new symptoms or issues with her migraine she notes that she does have photophobia phonophobia. She was otherwise well- appearing in no apparent distress. She denied chest pain shortness of breath nausea vomiting diarrhea constipation fever fatigue chills. - Related Data Home Medications Medication Instructions Recorded Confirmed Galcanezumab-Gnlm [Emgality Pen] 120 mg SQ Q30D 04/28/20 01/04/21 amLODIPine [Norvasc] 5 mg PO DAILY 04/28/20 01/04/21 Albuterol Inhaler [Ventolin Hfa 1 - 2 puff INHALATION RT-Q6H PRN 11/15/20 01/04/21 Inhaler] Omeprazole [PriLOSEC] 20 mg PO BID 12/15/20 01/04/21 Thiamine [Vitamin B-1] 100 mg PO DAILY 01/04/21 01/04/21 Previous Rx's Medication Instructions Recorded HYDROcodone/APAP 7.5-325MG [[place] 1 tab PO TID PRN #12 tab 11/17/20 7.5-325] Potassium Chloride ER [K-Dur 20] 20 meq PO BID 7 Days #14 tab 12/15/20 Lacosamide [Vimpat] 100 mg PO BID 7 Days #14 tab 01/16/21 Allergies Allergy/AdvReac Type Severity Reaction Status Date / Time dihydroergotamine Allergy Unknown Unknown Verified 03/18/21 18:06 [From Migranal] gabapentin [From Neurontin] Allergy Itching/Swe Verified 03/18/21 18:06 lling latex Allergy Anaphylaxis Verified 03/18/21 18:06 naproxen [From Naprosyn] Allergy Anaphylaxis Verified 03/18/21 18:06 Penicillins Allergy Anaphylaxis Verified 03/18/21 18:06 prednisone Allergy Swelling Verified 03/18/21 18:06 quetiapine fumarate Allergy Itching, Verified 03/18/21 18:06 [From Seroquel] leg cramps rofecoxib [From Vioxx] Allergy Itching, Verified 03/18/21 18:06 leg cramps terfenadine [From Seldane] Allergy Rash/Hives Verified 03/18/21 18:06 tramadol Allergy Nausea & Verified 03/18/21 18:06 Vomiting/LEG CRAMPS/HEART FLUTTERS calcium carbonate [From DHEA] AdvReac Chest Pain Verified 03/18/21 18:06 calcium phosphate,dibasic AdvReac Chest Pain Verified 03/18/21 18:06 [From DHEA] clindamycin AdvReac muscle Verified 03/18/21 18:06 cramps clonidine AdvReac fast Verified 03/18/21 18:06 heartbeat, migraine dextromethorphan HBr AdvReac face/neck Verified 03/18/21 18:06 [From NyQuil] flushing diazepam [From Valium] AdvReac Nausea & Verified 03/18/21 18:06 Vomiting divalproex sodium AdvReac Nausea & Verified 03/18/21 18:06 [From Depakote] Vomiting doxylamine [From NyQuil] AdvReac face "beet Verified 03/18/21 18:06 red", elevated temp. ibuprofen [From Motrin] AdvReac abdominal Verified 03/18/21 18:06 & muscle cramps indomethacin [From Indocin] AdvReac Abdominal Verified 03/18/21 18:06 Pain,N/V ketorolac tromethamine AdvReac "built up Verified 03/18/21 18:06 [From Toradol] in system", had to be given something to reverse lorazepam [From Ativan] AdvReac Nausea & Verified 03/18/21 18:06 Vomiting memantine [From Namenda] AdvReac Itching Verified 03/18/21 18:06 metoclopramide HCl AdvReac muscle Verified 03/18/21 18:06 [From Reglan] cramps nortriptyline [From Pamelor] AdvReac Chest Pain Verified 03/18/21 18:06 prasterone (DHEA) [From DHEA] AdvReac Chest Pain Verified 03/18/21 18:06 prochlorperazine AdvReac leg Verified 03/18/21 18:06 [From Compazine] cramping propranolol AdvReac Chest Pain Verified 03/18/21 18:06 pseudoephedrine HCl AdvReac face "beet Verified 03/18/21 18:06 [From NyQuil] red", elevated temp. quetiapine [From Seroquel] AdvReac leg Verified 03/18/21 18:06 cramping sumatriptan [From Imitrex] AdvReac migrane Verified 03/18/21 18:06 sumatriptan succinate AdvReac migrane Verified 03/18/21 18:06 [From Imitrex] topiramate [From Topamax] AdvReac "built up Verified 03/18/21 18:06 in system", had to be given something to reverse trazodone AdvReac "built up Verified 03/18/21 18:06 in system", had to be given something to reverse zolpidem tartrate AdvReac "Became Verified 03/18/21 18:06 [From Ambien] violent with no memory" zonisamide [From Zonegran] AdvReac inability Verified 03/18/21 18:06 to eat prosyn Allergy Itching Uncoded 03/18/21 18:06 artificial sweetener AdvReac SEVERE Uncoded 03/18/21 18:06 MIGRAINE HEADACHE Review of Systems ROS Statement: Those systems with pertinent positive or pertinent negative responses have been documented in the HPI. ROS Other: All systems not noted in ROS Statement are negative. Past Medical History Past Medical History: Hyperlipidemia, Hypertension, Seizure Disorder Additional Past Medical History / Comment(s): Migraines, viral meningitis x3 as a child, 1995, 2000, chronic back pain, nerve blocks 08/2016 and 12/2016. Last seizure 10/10/2020, "ABSENT SEIZURES. HX TACHYCARDIA, GBS/CIPD, PTSD. History of Any Multi-Drug Resistant Organisms: None Reported Past Surgical History: Appendectomy, Section, Cholecystectomy, Hernia Repair, Hysterectomy, Orthopedic Surgery, Tonsillectomy, Tubal Ligation Additional Past Surgical History / Comment(s): Hiatal Hernia, umbilical hernia repair, left rotator cuff repair, bilateral knee scopes, pain clinic procedures- occipital nerve block. abd exploratory sx(endometreosis), 3 abd scopes 1981, 1989, 1991), lumbar puncture. EGD. nerve biopsy, salvalry gland biospy Past Anesthesia/Blood Transfusion Reactions: No Reported Reaction Additional Past Anesthesia/Blood Transfusion Reaction / Comment(s): Claustrophobic Past Psychological History: Anxiety, Bipolar, Panic Disorder, PTSD Smoking Status: Current every day smoker Past Alcohol Use History: None Reported Past Drug Use History: None Reported - Past Family History Mother Family Medical History: Cancer, Dementia, Diabetes Mellitus, GERD/Reflux, Hyperlipidemia, Hypertension, Thyroid Disorder Additional Family Medical History / Comment(s): Quad CABG, cardiac stents, toes ampuated and left leg amputated Father History Unknown: Yes Family Medical History: No Reported History General Exam Limitations: no limitations General appearance: alert, in no apparent distress Head exam: Present: atraumatic, normocephalic, normal inspection Eye exam: Present: normal appearance, PERRL, EOMI. Absent: scleral icterus, conjunctival injection, periorbital swelling ENT exam: Present: normal exam, mucous membranes moist Neck exam: Present: normal inspection Respiratory exam: Present: normal lung sounds bilaterally. Absent: respiratory distress, wheezes, rales, rhonchi, stridor Cardiovascular Exam: Present: regular rate, normal rhythm, normal heart sounds. Absent: systolic murmur, diastolic murmur, rubs, gallop, clicks Extremities exam: Present: normal inspection, full ROM, normal capillary refill. Absent: tenderness, pedal edema, joint swelling, calf tenderness Neurological exam: Present: alert, oriented X3 Psychiatric exam: Present: normal affect, normal mood Skin exam: Present: warm, dry, intact, normal color. Absent: rash Course Vital Signs 03/18/21 18:02 Temperature 98.2 F Pulse Rate 103 H Respiratory 18 Rate Blood Pressure 130/87 O2 Sat by Pulse 95 Oximetry Medical Decision Making - Medical Decision Making 11-year-old female with migraine headache. 50 g Benadryl, 1 mg of Dilaudid, 4 mg of Zofran ordered. Patient states that Dilaudid was not working as time so 4 mg of morphine was ordered. Patient is agreeable with discharge home with follow-up to primary care. Case discussed with Dr. Mclaughlin, patient discharge home. Disposition Clinical Impression: Headache Disposition: HOME SELF-CARE Condition: Stable Instructions (If sedation given, give patient instructions): Acute Headache (ED) Additional Instructions: Please return to the Emergency Department if symptoms worsen or any other concerns. Is patient prescribed a controlled substance at d/c from ED?: No Referrals: José Reece MD [Primary Care Provider] - 1-2 days Time of Disposition: 21:36
== END 2021-03-18 22:00 | disposition home or self-care (01) ==
LOC: EC 17:34
DX: R51.9 Headache, unspecified (principal); E78.5 Hyperlipidemia, unspecified; I10 Essential (primary) hypertension; F41.9 Anxiety disorder, unspecified; F31.9 Bipolar disorder, unspecified; F43.12 Post-traumatic stress disorder, chronic; F17.200 Nicotine dependence, unspecified, uncomplicated; Z91.040 Latex allergy status; Z88.0 Allergy status to penicillin; Z88.1 Allergy status to other antibiotic agents; Z88.6 Allergy status to analgesic agent; Z90.49 Acquired absence of other specified parts of digestive tract; Z90.710 Acquired absence of both cervix and uterus; Z98.51 Tubal ligation status
CPT/HCPCS: 99283; 96374; 96375 ×3; J2270; J1200; J2405; J1170

== ENCOUNTER 2021-04-03 18:48 | Emergency (ER) | payer OTHER ==
[2021-04-03 19:44] VITALS: BP 112/77; PULSE 107; RESP 18; TEMP 98.1
[2021-04-03] MEDS ORDERED: SODIUM CHLORIDE 0.9% 500 ML 500 ML IV ONE (21:24)
[2021-04-03] MEDS ORDERED: HYDROmorphone 1 MG/ML 1 ML SYRINGE IVP STA (21:24)
[2021-04-03] MEDS ORDERED: diphenhydrAMINE 50 MG/ML 1 ML VIAL IVP STA (21:24)
[2021-04-03] MEDS ORDERED: ONDANSETRON 4 MG/2 ML VIAL IVP STA (21:25)
--- NOTE | 2021-04-03 21:48 | ED ---
Headache HPI - General Chief Complaint: Headache Stated Complaint: headache Time Seen by Provider: 04/03/21 20:36 Mode of arrival: ambulatory Limitations: no limitations - History of Present Illness Initial Comments: 51-year-old female patient presented to the emergency department today for migraine headache for the last 2 weeks. Patient denies any new symptoms with this headache. States she has a history of frequent migraines. Reports light sensitivity, sound sensitivity, nausea. Denies any vomiting. Denies numbness, tingling, or new weakness to her extremities. States she did take Flexeril, Benadryl, Percocet, and phenergan at home around 11:00 for pain without relief. Denies any fever or chills. Denies abdominal pain or diarrhea. Denies concern for Covid. - Related Data Home Medications Medication Instructions Recorded Confirmed Galcanezumab-Gnlm [Emgality Pen] 120 mg SQ Q30D 04/28/20 01/04/21 amLODIPine [Norvasc] 5 mg PO DAILY 04/28/20 01/04/21 Albuterol Inhaler [Ventolin Hfa 1 - 2 puff INHALATION RT-Q6H PRN 11/15/20 01/04/21 Inhaler] Omeprazole [PriLOSEC] 20 mg PO BID 12/15/20 01/04/21 Thiamine [Vitamin B-1] 100 mg PO DAILY 01/04/21 01/04/21 Previous Rx's Medication Instructions Recorded HYDROcodone/APAP 7.5-325MG [Kirvin 1 tab PO TID PRN #12 tab 11/17/20 7.5-325] Potassium Chloride ER [K-Dur 20] 20 meq PO BID 7 Days #14 tab 12/15/20 Lacosamide [Vimpat] 100 mg PO BID 7 Days #14 tab 01/16/21 Allergies Allergy/AdvReac Type Severity Reaction Status Date / Time dihydroergotamine Allergy Unknown Unknown Verified 04/03/21 19:44 [From Migranal] gabapentin [From Neurontin] Allergy Itching/Swe Verified 04/03/21 19:44 lling latex Allergy Anaphylaxis Verified 04/03/21 19:44 naproxen [From Naprosyn] Allergy Anaphylaxis Verified 04/03/21 19:44 Penicillins Allergy Anaphylaxis Verified 04/03/21 19:44 prednisone Allergy Swelling Verified 04/03/21 19:44 quetiapine fumarate Allergy Itching, Verified 04/03/21 19:44 [From Seroquel] leg cramps rofecoxib [From Vioxx] Allergy Itching, Verified 04/03/21 19:44 leg cramps terfenadine [From Seldane] Allergy Rash/Hives Verified 04/03/21 19:44 tramadol Allergy Nausea & Verified 04/03/21 19:44 Vomiting/LEG CRAMPS/HEART FLUTTERS calcium carbonate [From DHEA] AdvReac Chest Pain Verified 04/03/21 19:44 calcium phosphate,dibasic AdvReac Chest Pain Verified 04/03/21 19:44 [From DHEA] clindamycin AdvReac muscle Verified 04/03/21 19:44 cramps clonidine AdvReac fast Verified 04/03/21 19:44 heartbeat, migraine dextromethorphan HBr AdvReac face/neck Verified 04/03/21 19:44 [From NyQuil] flushing diazepam [From Valium] AdvReac Nausea & Verified 04/03/21 19:44 Vomiting divalproex sodium AdvReac Nausea & Verified 04/03/21 19:44 [From Depakote] Vomiting doxylamine [From NyQuil] AdvReac face "beet Verified 04/03/21 19:44 red", elevated temp. ibuprofen [From Motrin] AdvReac abdominal Verified 04/03/21 19:44 & muscle cramps indomethacin [From Indocin] AdvReac Abdominal Verified 04/03/21 19:44 Pain,N/V ketorolac tromethamine AdvReac "built up Verified 04/03/21 19:44 [From Toradol] in system", had to be given something to reverse lorazepam [From Ativan] AdvReac Nausea & Verified 04/03/21 19:44 Vomiting memantine [From Namenda] AdvReac Itching Verified 04/03/21 19:44 metoclopramide HCl AdvReac muscle Verified 04/03/21 19:44 [From Reglan] cramps nortriptyline [From Pamelor] AdvReac Chest Pain Verified 04/03/21 19:44 prasterone (DHEA) [From DHEA] AdvReac Chest Pain Verified 04/03/21 19:44 prochlorperazine AdvReac leg Verified 04/03/21 19:44 [From Compazine] cramping propranolol AdvReac Chest Pain Verified 04/03/21 19:44 pseudoephedrine HCl AdvReac face "beet Verified 04/03/21 19:44 [From NyQuil] red", elevated temp. quetiapine [From Seroquel] AdvReac leg Verified 04/03/21 19:44 cramping sumatriptan [From Imitrex] AdvReac migrane Verified 04/03/21 19:44 sumatriptan succinate AdvReac migrane Verified 04/03/21 19:44 [From Imitrex] topiramate [From Topamax] AdvReac "built up Verified 04/03/21 19:44 in system", had to be given something to reverse trazodone AdvReac "built up Verified 04/03/21 19:44 in system", had to be given something to reverse zolpidem tartrate AdvReac "Became Verified 04/03/21 19:44 [From Ambien] violent with no memory" zonisamide [From Zonegran] AdvReac inability Verified 04/03/21 19:44 to eat prosyn Allergy Itching Uncoded 04/03/21 19:44 artificial sweetener AdvReac SEVERE Uncoded 04/03/21 19:44 MIGRAINE HEADACHE Review of Systems ROS Statement: Those systems with pertinent positive or pertinent negative responses have been documented in the HPI. ROS Other: All systems not noted in ROS Statement are negative. Past Medical History Past Medical History: Hyperlipidemia, Hypertension, Seizure Disorder Additional Past Medical History / Comment(s): Migraines, viral meningitis x3 as a child, 1995, 2000, chronic back pain, nerve blocks 08/2016 and 12/2016. Last seizure 10/10/2020, "ABSENT SEIZURES. HX TACHYCARDIA, GBS/CIPD, PTSD. History of Any Multi-Drug Resistant Organisms: None Reported Past Surgical History: Appendectomy, Section, Cholecystectomy, Hernia Repair, Hysterectomy, Orthopedic Surgery, Tonsillectomy, Tubal Ligation Additional Past Surgical History / Comment(s): Hiatal Hernia, umbilical hernia repair, left rotator cuff repair, bilateral knee scopes, pain clinic procedures- occipital nerve block. abd exploratory sx(endometreosis), 3 abd scopes 1981, 1989, 1991), lumbar puncture. EGD. nerve biopsy, salvalry gland biospy Past Anesthesia/Blood Transfusion Reactions: No Reported Reaction Additional Past Anesthesia/Blood Transfusion Reaction / Comment(s): Claustrophobic Past Psychological History: Anxiety, Bipolar, Panic Disorder, PTSD Smoking Status: Current every day smoker Past Alcohol Use History: None Reported Past Drug Use History: None Reported - Past Family History Mother Family Medical History: Cancer, Dementia, Diabetes Mellitus, GERD/Reflux, Hyperlipidemia, Hypertension, Thyroid Disorder Additional Family Medical History / Comment(s): Quad CABG, cardiac stents, toes ampuated and left leg amputated Father History Unknown: Yes Family Medical History: No Reported History General Exam Limitations: no limitations General appearance: alert, in no apparent distress, other (This is a well- developed, well-nourished adult female in no acute distress.) Eye exam: Present: normal appearance, PERRL, EOMI. Absent: scleral icterus, conjunctival injection, nystagmus, periorbital swelling ENT exam: Present: normal exam, normal oropharynx, mucous membranes moist Respiratory exam: Present: normal lung sounds bilaterally. Absent: respiratory distress, wheezes, rales, rhonchi, stridor Cardiovascular Exam: Present: regular rate, normal rhythm, normal heart sounds. Absent: systolic murmur, diastolic murmur, rubs, gallop, clicks GI/Abdominal exam: Present: soft, normal bowel sounds. Absent: distended, tenderness, guarding, rebound, rigid Neurological exam: Present: alert, oriented X3, CN II-XII intact, other (Strength in the upper extremities is 5/5.) Psychiatric exam: Present: normal affect, normal mood Skin exam: Present: warm, dry, intact, normal color. Absent: rash Course Vital Signs 04/03/21 19:42 Temperature 98.1 F Pulse Rate 107 H Respiratory 18 Rate Blood Pressure 112/77 O2 Sat by Pulse 98 Oximetry Medical Decision Making - Medical Decision Making 51 year old female patient with past medical history significant for migraine headaches presents for headache for the last 2 weeks. Physical examination is unremarkable. She is neurologically intact with no focal deficits. She is given IV medications. Upon reevaluation states she has slight improvement. She will be discharged to follow up with her primary care physician and neurologist. Return parameters were discussed in detail. She verbalizes understanding and agrees with this plan. My attending is Dr. Eller. Disposition Clinical Impression: Migraine headache Disposition: HOME SELF-CARE Condition: Good Instructions (If sedation given, give patient instructions): Migraine Headache (ED) Additional Instructions: Follow-up with your primary care physician for recheck in 1-2 days. Return for any new, worsening, or concerning symptoms. Is patient prescribed a controlled substance at d/c from ED?: No Referrals: José Reece MD [Primary Care Provider] - 1-2 days Time of Disposition: 22:23
== END 2021-04-03 22:34 | disposition home or self-care (01) ==
LOC: EC 18:48
DX: G43.909 Migraine, unspecified, not intractable, without status migrainosus (principal); I10 Essential (primary) hypertension; F17.200 Nicotine dependence, unspecified, uncomplicated; Z88.8 Allergy status to other drugs, medicaments and biological substances; Z91.040 Latex allergy status; Z88.6 Allergy status to analgesic agent; Z88.1 Allergy status to other antibiotic agents; Z88.0 Allergy status to penicillin; Z79.899 Other long term (current) drug therapy
CPT/HCPCS: 99283; 96374; 96375; 96361; J1200; J2405; J1170

== ENCOUNTER 2021-04-08 15:14 | Emergency (ER) | payer OTHER ==
[2021-04-08] MEDS ORDERED: diphenhydrAMINE 50 MG/ML 1 ML VIAL IM STA (16:03)
[2021-04-08] MEDS ORDERED: HYDROmorphone 1 MG/ML 1 ML SYRINGE IM STA (16:03)
[2021-04-08] MEDS ORDERED: ONDANSETRON 4 MG/2 ML VIAL IM STA (16:03)
[2021-04-08 16:05] VITALS: BP 140/91; PULSE 93; RESP 18; TEMP 99.3
--- NOTE | 2021-04-08 16:05 | ED ---
General Adult HPI - General Stated complaint: migraine Time Seen by Provider: 04/08/21 16:03 Source: patient, RN notes reviewed Mode of arrival: ambulatory Limitations: no limitations - History of Present Illness Initial comments: 51-year-old female well-known emergency from presents today with chief complaint of headache. This is typical headache for her. Patient has no neurological deficits. Patient states that just on alleviated with oral medications. Patient has fevers chills neck pain neck stiffness chest pain or any other associated complaints. - Related Data Home Medications Medication Instructions Recorded Confirmed Galcanezumab-Gnlm [Emgality Pen] 120 mg SQ Q30D 04/28/20 01/04/21 amLODIPine [Norvasc] 5 mg PO DAILY 04/28/20 01/04/21 Albuterol Inhaler [Ventolin Hfa 1 - 2 puff INHALATION RT-Q6H PRN 11/15/20 01/04/21 Inhaler] Omeprazole [PriLOSEC] 20 mg PO BID 12/15/20 01/04/21 Thiamine [Vitamin B-1] 100 mg PO DAILY 01/04/21 01/04/21 Previous Rx's Medication Instructions Recorded HYDROcodone/APAP 7.5-325MG [[place]ons 1 tab PO TID PRN #12 tab 11/17/20 7.5-325] Potassium Chloride ER [K-Dur 20] 20 meq PO BID 7 Days #14 tab 12/15/20 Lacosamide [Vimpat] 100 mg PO BID 7 Days #14 tab 01/16/21 Allergies Allergy/AdvReac Type Severity Reaction Status Date / Time dihydroergotamine Allergy Unknown Unknown Verified 04/08/21 16:02 [From Migranal] gabapentin [From Neurontin] Allergy Itching/Swe Verified 04/08/21 16:02 lling latex Allergy Anaphylaxis Verified 04/08/21 16:02 naproxen [From Naprosyn] Allergy Anaphylaxis Verified 04/08/21 16:02 Penicillins Allergy Anaphylaxis Verified 04/08/21 16:02 prednisone Allergy Swelling Verified 04/08/21 16:02 quetiapine fumarate Allergy Itching, Verified 04/08/21 16:02 [From Seroquel] leg cramps rofecoxib [From Vioxx] Allergy Itching, Verified 04/08/21 16:02 leg cramps terfenadine [From Seldane] Allergy Rash/Hives Verified 04/08/21 16:02 tramadol Allergy Nausea & Verified 04/08/21 16:02 Vomiting/LEG CRAMPS/HEART FLUTTERS calcium carbonate [From DHEA] AdvReac Chest Pain Verified 04/08/21 16:02 calcium phosphate,dibasic AdvReac Chest Pain Verified 04/08/21 16:02 [From DHEA] clindamycin AdvReac muscle Verified 04/08/21 16:02 cramps clonidine AdvReac fast Verified 04/08/21 16:02 heartbeat, migraine dextromethorphan HBr AdvReac face/neck Verified 04/08/21 16:02 [From NyQuil] flushing diazepam [From Valium] AdvReac Nausea & Verified 04/08/21 16:02 Vomiting divalproex sodium AdvReac Nausea & Verified 04/08/21 16:02 [From Depakote] Vomiting doxylamine [From NyQuil] AdvReac face "beet Verified 04/08/21 16:02 red", elevated temp. ibuprofen [From Motrin] AdvReac abdominal Verified 04/08/21 16:02 & muscle cramps indomethacin [From Indocin] AdvReac Abdominal Verified 04/08/21 16:02 Pain,N/V ketorolac tromethamine AdvReac "built up Verified 04/08/21 16:02 [From Toradol] in system", had to be given something to reverse lorazepam [From Ativan] AdvReac Nausea & Verified 04/08/21 16:02 Vomiting memantine [From Namenda] AdvReac Itching Verified 04/08/21 16:02 metoclopramide HCl AdvReac muscle Verified 04/08/21 16:02 [From Reglan] cramps nortriptyline [From Pamelor] AdvReac Chest Pain Verified 04/08/21 16:02 prasterone (DHEA) [From DHEA] AdvReac Chest Pain Verified 04/08/21 16:02 prochlorperazine AdvReac leg Verified 04/08/21 16:02 [From Compazine] cramping propranolol AdvReac Chest Pain Verified 04/08/21 16:02 pseudoephedrine HCl AdvReac face "beet Verified 04/08/21 16:02 [From NyQuil] red", elevated temp. quetiapine [From Seroquel] AdvReac leg Verified 04/08/21 16:02 cramping sumatriptan [From Imitrex] AdvReac migrane Verified 04/08/21 16:02 sumatriptan succinate AdvReac migrane Verified 04/08/21 16:02 [From Imitrex] topiramate [From Topamax] AdvReac "built up Verified 04/08/21 16:02 in system", had to be given something to reverse trazodone AdvReac "built up Verified 04/08/21 16:02 in system", had to be given something to reverse zolpidem tartrate AdvReac "Became Verified 04/08/21 16:02 [From Ambien] violent with no memory" zonisamide [From Zonegran] AdvReac inability Verified 04/08/21 16:02 to eat prosyn Allergy Itching Uncoded 04/08/21 16:02 artificial sweetener AdvReac SEVERE Uncoded 04/08/21 16:02 MIGRAINE HEADACHE Review of Systems ROS Statement: Those systems with pertinent positive or pertinent negative responses have been documented in the HPI. ROS Other: All systems not noted in ROS Statement are negative. Past Medical History Past Medical History: Hyperlipidemia, Hypertension, Seizure Disorder Additional Past Medical History / Comment(s): Migraines, viral meningitis x3 as a child, 1995, 2000, chronic back pain, nerve blocks 08/2016 and 12/2016. Last seizure 10/10/2020, "ABSENT SEIZURES. HX TACHYCARDIA, GBS/CIPD, PTSD. History of Any Multi-Drug Resistant Organisms: None Reported Past Surgical History: Appendectomy, Section, Cholecystectomy, Hernia Repair, Hysterectomy, Orthopedic Surgery, Tonsillectomy, Tubal Ligation Additional Past Surgical History / Comment(s): Hiatal Hernia, umbilical hernia repair, left rotator cuff repair, bilateral knee scopes, pain clinic procedures- occipital nerve block. abd exploratory sx(endometreosis), 3 abd scopes 1981, 1989, 1991), lumbar puncture. EGD. nerve biopsy, salvalry gland biospy Past Anesthesia/Blood Transfusion Reactions: No Reported Reaction Additional Past Anesthesia/Blood Transfusion Reaction / Comment(s): C laustrophobic Past Psychological History: Anxiety, Bipolar, Panic Disorder, PTSD Smoking Status: Current every day smoker Past Alcohol Use History: None Reported Past Drug Use History: None Reported - Past Family History Mother Family Medical History: Cancer, Dementia, Diabetes Mellitus, GERD/Reflux, Hyperlipidemia, Hypertension, Thyroid Disorder Additional Family Medical History / Comment(s): Quad CABG, cardiac stents, toes ampuated and left leg amputated Father History Unknown: Yes Family Medical History: No Reported History General Exam General appearance: alert, in no apparent distress Head exam: Present: atraumatic, normocephalic, normal inspection Eye exam: Present: normal appearance, PERRL, EOMI. Absent: scleral icterus, conjunctival injection, periorbital swelling ENT exam: Present: normal exam, mucous membranes moist Neck exam: Present: normal inspection, full ROM. Absent: tenderness, meningismus, lymphadenopathy Respiratory exam: Present: normal lung sounds bilaterally. Absent: respiratory distress, wheezes, rales, rhonchi, stridor Cardiovascular Exam: Present: regular rate, normal rhythm, normal heart sounds. Absent: systolic murmur, diastolic murmur, rubs, gallop, clicks Neurological exam: Present: alert, oriented X3, CN II-XII intact, reflexes normal. Absent: motor sensory deficit Medical Decision Making - Medical Decision Making patient has chronic migraines. Patient has typical headache for her on alleviated with oral medications. Patient has no neurological deficits be discharged in stable condition. Disposition Clinical Impression: Headache Disposition: HOME SELF-CARE Condition: Stable Instructions (If sedation given, give patient instructions): Acute Headache (ED) Additional Instructions: Please return to the Emergency Department if symptoms worsen or any other concerns. Is patient prescribed a controlled substance at d/c from ED?: No Referrals: José Reece MD [Primary Care Provider] - 1-2 days Time of Disposition: 16:05
== END 2021-04-08 16:52 | disposition home or self-care (01) ==
LOC: EC 15:14
DX: R51.9 Headache, unspecified (principal); E78.5 Hyperlipidemia, unspecified; I10 Essential (primary) hypertension; F41.9 Anxiety disorder, unspecified; F31.9 Bipolar disorder, unspecified; F43.12 Post-traumatic stress disorder, chronic; F17.200 Nicotine dependence, unspecified, uncomplicated; Z88.0 Allergy status to penicillin; Z88.1 Allergy status to other antibiotic agents; Z91.040 Latex allergy status; Z88.6 Allergy status to analgesic agent; Z90.49 Acquired absence of other specified parts of digestive tract; Z90.710 Acquired absence of both cervix and uterus; Z98.51 Tubal ligation status
CPT/HCPCS: 99283; 96372 ×3; J1200; J2405; J1170

== ENCOUNTER 2021-04-23 14:50 | Emergency (ER) | payer OTHER ==
[2021-04-23 16:38] VITALS: BP 109/74; PULSE 115; RESP 20; TEMP 99.2
--- NOTE | 2021-04-23 19:05 | ED ---
General Adult HPI - General Chief complaint: Headache Stated complaint: migraine, vomiting Time Seen by Provider: 04/23/21 18:37 Source: patient Mode of arrival: wheelchair Limitations: no limitations - History of Present Illness Initial comments: This 51-year-old female presents emergency Department with a headache x4 days. Patient states she has a history of migraine headaches and this feels like her headaches. Patient states she is having pain on the right side of her head, worsening with light or high pitched noises. She denies any neurological symptoms and states she has no tingling, numbness, changes in vision. States she has also had 2 episodes of vomiting. Patient states she has tried peppermint oil, heat, Tylenol, and [place] which sometimes releives her headaches, however this time it still has not gone away. Patient states her pain is 9 out of 10. Patient states she is currently taking and Emgality and sees Dr. Moore for her migraine headaches. Patient denies any chest pain, shortness of breath, abdominal pain, blurred or changed vision, neck pain, back pain, change in bowel or bladder. - Related Data Home Medications Medication Instructions Recorded Confirmed Galcanezumab-Gnlm [Emgality Pen] 120 mg SQ Q30D 04/28/20 01/04/21 amLODIPine [Norvasc] 5 mg PO DAILY 04/28/20 01/04/21 Albuterol Inhaler [Ventolin Hfa 1 - 2 puff INHALATION RT-Q6H PRN 11/15/20 01/04/21 Inhaler] Omeprazole [PriLOSEC] 20 mg PO BID 12/15/20 01/04/21 Thiamine [Vitamin B-1] 100 mg PO DAILY 01/04/21 01/04/21 Previous Rx's Medication Instructions Recorded HYDROcodone/APAP 7.5-325MG [[place] 1 tab PO TID PRN #12 tab 11/17/20 7.5-325] Potassium Chloride ER [K-Dur 20] 20 meq PO BID 7 Days #14 tab 12/15/20 Lacosamide [Vimpat] 100 mg PO BID 7 Days #14 tab 01/16/21 Allergies Allergy/AdvReac Type Severity Reaction Status Date / Time dihydroergotamine Allergy Unknown Unknown Verified 04/23/21 16:37 [From Migranal] gabapentin [From Neurontin] Allergy Itching/Swe Verified 04/23/21 16:37 lling latex Allergy Anaphylaxis Verified 04/23/21 16:37 naproxen [From Naprosyn] Allergy Anaphylaxis Verified 04/23/21 16:37 Penicillins Allergy Anaphylaxis Verified 04/23/21 16:37 prednisone Allergy Swelling Verified 04/23/21 16:37 quetiapine fumarate Allergy Itching, Verified 04/23/21 16:37 [From Seroquel] leg cramps rofecoxib [From Vioxx] Allergy Itching, Verified 04/23/21 16:37 leg cramps terfenadine [From Seldane] Allergy Rash/Hives Verified 04/23/21 16:37 tramadol Allergy Nausea & Verified 04/23/21 16:37 Vomiting/LEG CRAMPS/HEART FLUTTERS calcium carbonate [From DHEA] AdvReac Chest Pain Verified 04/23/21 16:37 calcium phosphate,dibasic AdvReac Chest Pain Verified 04/23/21 16:37 [From DHEA] clindamycin AdvReac muscle Verified 04/23/21 16:37 cramps clonidine AdvReac fast Verified 04/23/21 16:37 heartbeat, migraine dextromethorphan HBr AdvReac face/neck Verified 04/23/21 16:37 [From NyQuil] flushing diazepam [From Valium] AdvReac Nausea & Verified 04/23/21 16:37 Vomiting divalproex sodium AdvReac Nausea & Verified 04/23/21 16:37 [From Depakote] Vomiting doxylamine [From NyQuil] AdvReac face "beet Verified 04/23/21 16:37 red", elevated temp. ibuprofen [From Motrin] AdvReac abdominal Verified 04/23/21 16:37 & muscle cramps indomethacin [From Indocin] AdvReac Abdominal Verified 04/23/21 16:37 Pain,N/V ketorolac tromethamine AdvReac "built up Verified 04/23/21 16:37 [From Toradol] in system", had to be given something to reverse lorazepam [From Ativan] AdvReac Nausea & Verified 04/23/21 16:37 Vomiting memantine [From Namenda] AdvReac Itching Verified 04/23/21 16:37 metoclopramide HCl AdvReac muscle Verified 04/23/21 16:37 [From Reglan] cramps nortriptyline [From Pamelor] AdvReac Chest Pain Verified 04/23/21 16:37 prasterone (DHEA) [From DHEA] AdvReac Chest Pain Verified 04/23/21 16:37 prochlorperazine AdvReac leg Verified 04/23/21 16:37 [From Compazine] cramping propranolol AdvReac Chest Pain Verified 04/23/21 16:37 pseudoephedrine HCl AdvReac face "beet Verified 04/23/21 16:37 [From NyQuil] red", elevated temp. quetiapine [From Seroquel] AdvReac leg Verified 04/23/21 16:37 cramping sumatriptan [From Imitrex] AdvReac migrane Verified 04/23/21 16:37 sumatriptan succinate AdvReac migrane Verified 04/23/21 16:37 [From Imitrex] topiramate [From Topamax] AdvReac "built up Verified 04/23/21 16:37 in system", had to be given something to reverse trazodone AdvReac "built up Verified 04/23/21 16:37 in system", had to be given something to reverse zolpidem tartrate AdvReac "Became Verified 04/23/21 16:37 [From Ambien] violent with no memory" zonisamide [From Zonegran] AdvReac inability Verified 04/23/21 16:37 to eat prosyn Allergy Itching Uncoded 04/23/21 16:37 artificial sweetener AdvReac SEVERE Uncoded 04/23/21 16:37 MIGRAINE HEADACHE Review of Systems ROS Statement: Those systems with pertinent positive or pertinent negative responses have been documented in the HPI. ROS Other: All systems not noted in ROS Statement are negative. Past Medical History Past Medical History: Hyperlipidemia, Hypertension, Seizure Disorder Additional Past Medical History / Comment(s): Migraines, viral meningitis x3 as a child, 1995, 2000, chronic back pain, nerve blocks 08/2016 and 12/2016. Last seizure 10/10/2020, "ABSENT SEIZURES. HX TACHYCARDIA, GBS/CIPD, PTSD. History of Any Multi-Drug Resistant Organisms: None Reported Past Surgical History: Appendectomy, Section, Cholecystectomy, Hernia Repair, Hysterectomy, Orthopedic Surgery, Tonsillectomy, Tubal Ligation Additional Past Surgical History / Comment(s): Hiatal Hernia, umbilical hernia repair, left rotator cuff repair, bilateral knee scopes, pain clinic procedures- occipital nerve block. abd exploratory sx(endometreosis), 3 abd scopes 1981, 1989, 1991), lumbar puncture. EGD. nerve biopsy, salvalry gland biospy Past Anesthesia/Blood Transfusion Reactions: No Reported Reaction Additional Past Anesthesia/Blood Transfusion Reaction / Comment(s): Claustrophobic Past Psychological History: Anxiety, Bipolar, Panic Disorder, PTSD Smoking Status: Current every day smoker Past Alcohol Use History: None Reported Past Drug Use History: None Reported - Past Family History Mother Family Medical History: Cancer, Dementia, Diabetes Mellitus, GERD/Reflux, Hyperlipidemia, Hypertension, Thyroid Disorder Additional Family Medical History / Comment(s): Quad CABG, cardiac stents, toes ampuated and left leg amputated Father History Unknown: Yes Family Medical History: No Reported History General Exam Limitations: no limitations General appearance: alert Head exam: Present: atraumatic, normocephalic Eye exam: Present: normal appearance, PERRL, EOMI. Absent: scleral icterus, conjunctival injection, nystagmus, periorbital swelling, periorbital tenderness Pupils: Present: normal accommodation ENT exam: Present: normal exam, mucous membranes moist Neck exam: Present: normal inspection, full ROM, other (Negative Brudzinski ). Absent: tenderness, meningismus, lymphadenopathy Respiratory exam: Present: normal lung sounds bilaterally. Absent: respiratory distress, wheezes, rales, rhonchi, stridor Cardiovascular Exam: Present: regular rate, normal rhythm, normal heart sounds. Absent: systolic murmur, diastolic murmur, rubs, gallop, clicks GI/Abdominal exam: Present: soft, normal bowel sounds. Absent: distended, tenderness, guarding, rebound, rigid Extremities exam: Present: full ROM Back exam: Present: full ROM. Absent: tenderness, CVA tenderness (R), CVA tenderness (L), paraspinal tenderness, vertebral tenderness Neurological exam: Present: alert, oriented X3, CN II-XII intact Psychiatric exam: Present: normal affect, normal mood Skin exam: Present: warm, dry, intact, normal color. Absent: rash Course Vital Signs 04/23/21 16:37 Temperature 99.2 F Pulse Rate 115 H Respiratory 20 Rate Blood Pressure 109/74 O2 Sat by Pulse 98 Oximetry - Reevaluation(s) Reevaluation #1: 04/23/21 20:40 Patient states her pain has improved from a 9 to a 7. One more dose of pain medication given. 04/23/21 21:15 Patient states her pain has significantly improved and is below 7. Medical Decision Making - Medical Decision Making This 51-year-old female presents to the emergency department with a migraine headache. She has a history of migraine headaches. Fluids, Zofran, Dilaudid, Benadryl were given with patient's symptoms significantly improved. Patient stated she was ready to go home and sleep since she was feeling better. Patient not have any neck or back pain. Discussed strict return precautions with patient. Patient verbally agreed to plan. Patient agreed to follow-up with her neurologist next 24-48 hours. Patient sent home in stable condition. Disposition Clinical Impression: Migraine headache Disposition: HOME SELF-CARE Condition: Stable Instructions (If sedation given, give patient instructions): Migraine Headache (ED) Additional Instructions: Please return to the emergency department with any concerning, new, worsening symptoms. Please follow-up with your neurologist in next 24-48 hours. Is patient prescribed a controlled substance at d/c from ED?: No Referrals: José Reece MD [Primary Care Provider] - 1-2 days Time of Disposition: 21:09
[2021-04-23] MEDS ORDERED: ONDANSETRON 4 MG/2 ML VIAL IVP STA (19:06)
[2021-04-23] MEDS ORDERED: diphenhydrAMINE 50 MG/ML 1 ML VIAL IVP STA (19:06)
[2021-04-23] MEDS ORDERED: SODIUM CHLORIDE 0.9% 500 ML 500 ML IV STA (19:06)
[2021-04-23] MEDS ORDERED: HYDROmorphone 1 MG/ML 1 ML SYRINGE IVP STA ×2 (19:14→20:41)
== END 2021-04-23 21:35 | disposition home or self-care (01) ==
LOC: EC 14:50
DX: G43.909 Migraine, unspecified, not intractable, without status migrainosus (principal); E78.5 Hyperlipidemia, unspecified; I10 Essential (primary) hypertension; F41.9 Anxiety disorder, unspecified; F31.9 Bipolar disorder, unspecified; F43.12 Post-traumatic stress disorder, chronic; F17.200 Nicotine dependence, unspecified, uncomplicated; Z88.1 Allergy status to other antibiotic agents; Z88.0 Allergy status to penicillin; Z88.6 Allergy status to analgesic agent; Z91.040 Latex allergy status; Z90.49 Acquired absence of other specified parts of digestive tract; Z90.710 Acquired absence of both cervix and uterus; Z98.51 Tubal ligation status
CPT/HCPCS: 99283; 96374; 96375 ×3; 96376; J1200; J2405; J1170; J1642

== ENCOUNTER 2021-05-03 12:44 | Emergency (ER) | payer OTHER ==
[2021-05-03 12:59] VITALS: BP 143/93; PULSE 98; RESP 20; TEMP 98.3
[2021-05-03] MEDS ORDERED: ONDANSETRON 4 MG/2 ML VIAL IVP STA (13:32)
[2021-05-03] MEDS ORDERED: diphenhydrAMINE 50 MG/ML 1 ML VIAL IVP STA (13:32)
[2021-05-03] MEDS ORDERED: HYDROmorphone 1 MG/ML 1 ML SYRINGE IVP STA ×2 (13:32→13:34)
[2021-05-03] MEDS ORDERED: SODIUM CHLORIDE 0.9% 1,000 ML IV ONE (13:34)
--- NOTE | 2021-05-03 13:37 | ED ---
General Adult HPI - General Chief complaint: Headache Stated complaint: Headache Time Seen by Provider: 05/03/21 13:31 Source: patient, RN notes reviewed Mode of arrival: wheelchair Limitations: no limitations - History of Present Illness Initial comments: This a 51-year-old female presents emergency Department with chief complaint of headache. A chronic issue nature there is no acute changes. Patient states she's been vomiting she feels dehydrated. Patient has a prophylaxis. She has no nodule deficits. Was not sudden onset no fever no neck pain. - Related Data Home Medications Medication Instructions Recorded Confirmed Galcanezumab-Gnlm [Emgality Pen] 120 mg SQ Q30D 04/28/20 01/04/21 amLODIPine [Norvasc] 5 mg PO DAILY 04/28/20 01/04/21 Albuterol Inhaler [Ventolin Hfa 1 - 2 puff INHALATION RT-Q6H PRN 11/15/20 01/04/21 Inhaler] Omeprazole [PriLOSEC] 20 mg PO BID 12/15/20 01/04/21 Thiamine [Vitamin B-1] 100 mg PO DAILY 01/04/21 01/04/21 Previous Rx's Medication Instructions Recorded HYDROcodone/APAP 7.5-325MG [[place] 1 tab PO TID PRN #12 tab 11/17/20 7.5-325] Potassium Chloride ER [K-Dur 20] 20 meq PO BID 7 Days #14 tab 12/15/20 Lacosamide [Vimpat] 100 mg PO BID 7 Days #14 tab 01/16/21 Allergies Allergy/AdvReac Type Severity Reaction Status Date / Time dihydroergotamine Allergy Unknown Unknown Verified 05/03/21 12:59 [From Migranal] gabapentin [From Neurontin] Allergy Itching/Swe Verified 05/03/21 12:59 lling latex Allergy Anaphylaxis Verified 05/03/21 12:59 naproxen [From Naprosyn] Allergy Anaphylaxis Verified 05/03/21 12:59 Penicillins Allergy Anaphylaxis Verified 05/03/21 12:59 prednisone Allergy Swelling Verified 05/03/21 12:59 quetiapine fumarate Allergy Itching, Verified 05/03/21 12:59 [From Seroquel] leg cramps rofecoxib [From Vioxx] Allergy Itching, Verified 05/03/21 12:59 leg cramps terfenadine [From Seldane] Allergy Rash/Hives Verified 05/03/21 12:59 tramadol Allergy Nausea & Verified 05/03/21 12:59 Vomiting/LEG CRAMPS/HEART FLUTTERS calcium carbonate [From DHEA] AdvReac Chest Pain Verified 05/03/21 12:59 calcium phosphate,dibasic AdvReac Chest Pain Verified 05/03/21 12:59 [From DHEA] clindamycin AdvReac muscle Verified 05/03/21 12:59 cramps clonidine AdvReac fast Verified 05/03/21 12:59 heartbeat, migraine dextromethorphan HBr AdvReac face/neck Verified 05/03/21 12:59 [From NyQuil] flushing diazepam [From Valium] AdvReac Nausea & Verified 05/03/21 12:59 Vomiting divalproex sodium AdvReac Nausea & Verified 05/03/21 12:59 [From Depakote] Vomiting doxylamine [From NyQuil] AdvReac face "beet Verified 05/03/21 12:59 red", elevated temp. ibuprofen [From Motrin] AdvReac abdominal Verified 05/03/21 12:59 & muscle cramps indomethacin [From Indocin] AdvReac Abdominal Verified 05/03/21 12:59 Pain,N/V ketorolac tromethamine AdvReac "built up Verified 05/03/21 12:59 [From Toradol] in system", had to be given something to reverse lorazepam [From Ativan] AdvReac Nausea & Verified 05/03/21 12:59 Vomiting memantine [From Namenda] AdvReac Itching Verified 05/03/21 12:59 metoclopramide HCl AdvReac muscle Verified 05/03/21 12:59 [From Reglan] cramps nortriptyline [From Pamelor] AdvReac Chest Pain Verified 05/03/21 12:59 prasterone (DHEA) [From DHEA] AdvReac Chest Pain Verified 05/03/21 12:59 prochlorperazine AdvReac leg Verified 05/03/21 12:59 [From Compazine] cramping propranolol AdvReac Chest Pain Verified 05/03/21 12:59 pseudoephedrine HCl AdvReac face "beet Verified 05/03/21 12:59 [From NyQuil] red", elevated temp. quetiapine [From Seroquel] AdvReac leg Verified 05/03/21 12:59 cramping sumatriptan [From Imitrex] AdvReac migrane Verified 05/03/21 12:59 sumatriptan succinate AdvReac migrane Verified 05/03/21 12:59 [From Imitrex] topiramate [From Topamax] AdvReac "built up Verified 05/03/21 12:59 in system", had to be given something to reverse trazodone AdvReac "built up Verified 05/03/21 12:59 in system", had to be given something to reverse zolpidem tartrate AdvReac "Became Verified 05/03/21 12:59 [From Ambien] violent with no memory" zonisamide [From Zonegran] AdvReac inability Verified 05/03/21 12:59 to eat prosyn Allergy Itching Uncoded 05/03/21 12:59 artificial sweetener AdvReac SEVERE Uncoded 05/03/21 12:59 MIGRAINE HEADACHE Review of Systems ROS Statement: Those systems with pertinent positive or pertinent negative responses have been documented in the HPI. ROS Other: All systems not noted in ROS Statement are negative. Past Medical History Past Medical History: Hyperlipidemia, Hypertension, Seizure Disorder Additional Past Medical History / Comment(s): Migraines, viral meningitis x3 as a child, 1995, 2000, chronic back pain, nerve blocks 08/2016 and 12/2016. Last seizure 10/10/2020, "ABSENT SEIZURES. HX TACHYCARDIA, GBS/CIPD, PTSD. History of Any Multi-Drug Resistant Organisms: None Reported Past Surgical History: Appendectomy, Section, Cholecystectomy, Hernia Repair, Hysterectomy, Orthopedic Surgery, Tonsillectomy, Tubal Ligation Additional Past Surgical History / Comment(s): Hiatal Hernia, umbilical hernia repair, left rotator cuff repair, bilateral knee scopes, pain clinic procedures- occipital nerve block. abd exploratory sx(endometreosis), 3 abd scopes 1981, 1989, 1991), lumbar puncture. EGD. nerve biopsy, salvalry gland biospy Past Anesthesia/Blood Transfusion Reactions: No Reported Reaction Additional Past Anesthesia/Blood Transfusion Reaction / Comment(s): Claustrophobic Past Psychological History: Anxiety, Bipolar, Panic Disorder, PTSD Smoking Status: Current every day smoker Past Alcohol Use History: None Reported Past Drug Use History: None Reported - Past Family History Mother Family Medical History: Cancer, Dementia, Diabetes Mellitus, GERD/Reflux, Hyperlipidemia, Hypertension, Thyroid Disorder Additional Family Medical History / Comment(s): Quad CABG, cardiac stents, toes ampuated and left leg amputated Father History Unknown: Yes Family Medical History: No Reported History General Exam Limitations: no limitations General appearance: alert, in no apparent distress Head exam: Present: atraumatic, normocephalic, normal inspection Eye exam: Present: normal appearance, PERRL, EOMI. Absent: scleral icterus, conjunctival injection, periorbital swelling ENT exam: Present: normal exam, normal oropharynx, mucous membranes moist Neck exam: Present: normal inspection. Absent: tenderness, meningismus, lymphadenopathy Respiratory exam: Present: normal lung sounds bilaterally. Absent: respiratory distress, wheezes, rales, rhonchi, stridor Cardiovascular Exam: Present: regular rate, normal rhythm, normal heart sounds. Absent: systolic murmur, diastolic murmur, rubs, gallop, clicks GI/Abdominal exam: Present: soft, normal bowel sounds. Absent: distended, tenderness, guarding, rebound, rigid Neurological exam: Present: alert, oriented X3, CN II-XII intact, reflexes normal. Absent: motor sensory deficit Course Vital Signs 05/03/21 12:56 Temperature 98.3 F Pulse Rate 98 Respiratory 20 Rate Blood Pressure 143/93 O2 Sat by Pulse 98 Oximetry Medical Decision Making - Medical Decision Making Patient was given medications for chronic issues. Patient was discharged in stable condition she has no red flag symptoms or other concerns. Disposition Clinical Impression: Chronic pain, Migraine Disposition: HOME SELF-CARE Condition: Stable Instructions (If sedation given, give patient instructions): Acute Headache (ED) Additional Instructions: Please return to the Emergency Department if symptoms worsen or any other concerns. Is patient prescribed a controlled substance at d/c from ED?: No Referrals: José Reece MD [Primary Care Provider] - 1-2 days Time of Disposition: 13:37
[2021-05-03] MEDS ORDERED: hydrOXYzine HCL 50 MG/ML 1 ML VIAL IM STA (14:32)
== END 2021-05-03 15:15 | disposition home or self-care (01) ==
LOC: EC 12:44
DX: G43.909 Migraine, unspecified, not intractable, without status migrainosus (principal); G89.29 Other chronic pain; I10 Essential (primary) hypertension; E78.5 Hyperlipidemia, unspecified; G40.909 Epilepsy, unspecified, not intractable, without status epilepticus; F31.9 Bipolar disorder, unspecified; F41.9 Anxiety disorder, unspecified; F17.200 Nicotine dependence, unspecified, uncomplicated; Z79.51 Long term (current) use of inhaled steroids; Z79.899 Other long term (current) drug therapy
CPT/HCPCS: 99283; 96374; 96375 ×3; 96372; J1200; J2405; J3410; J1642; J1170

== ENCOUNTER 2021-05-07 19:16 | Emergency (ER) | payer OTHER ==
[2021-05-07 19:41] VITALS: TEMP 99.1
[2021-05-07] MEDS ORDERED: SODIUM CHLORIDE 0.9% 1,000 ML IV STA (21:54)
[2021-05-07] MEDS ORDERED: ONDANSETRON 4 MG/2 ML VIAL IVP STA (21:54)
[2021-05-07] MEDS ORDERED: HYDROmorphone 1 MG/ML 1 ML SYRINGE IVP STA ×2 (21:54→23:20)
[2021-05-07] MEDS ORDERED: diphenhydrAMINE 50 MG/ML 1 ML VIAL IVP STA (21:54)
--- NOTE | 2021-05-07 22:01 | ED ---
Headache HPI - General Chief Complaint: Headache Stated Complaint: Headache,N/V Time Seen by Provider: 05/07/21 21:45 Source: patient, RN notes reviewed, old records reviewed Mode of arrival: ambulatory Limitations: no limitations - History of Present Illness Initial Comments: 51-year-old female, alert and oriented 4, presents to the emergency room with complaints of a headache that started last night. She states this is similar to her previous headaches. She states that she has vomited 5 or 6 times today and is concerned that her potassium level is low and was asking for it to be checked. She states that she normally gets relief with the Dilaudid, Zofran, Benadryl and IV fluids. She denies fevers, blurry vision, focal weakness or paresthesias. She states her doctor is working on scheduling her for pain pump for her chronic migraine headaches. Complaint: headache, "migraine" -: days(s) (1) Onset Description: sudden Location: diffuse Severity scale (1-10): 9 Quality: constant, similar to previous headaches Consistency: constant Worsens With: light Associated Symptoms: photophobia - Related Data Home Medications Medication Instructions Recorded Confirmed Galcanezumab-Gnlm [Emgality Pen] 120 mg SQ Q30D 04/28/20 01/04/21 amLODIPine [Norvasc] 5 mg PO DAILY 04/28/20 01/04/21 Albuterol Inhaler [Ventolin Hfa 1 - 2 puff INHALATION RT-Q6H PRN 11/15/20 01/04/21 Inhaler] Omeprazole [PriLOSEC] 20 mg PO BID 12/15/20 01/04/21 Thiamine [Vitamin B-1] 100 mg PO DAILY 01/04/21 01/04/21 Previous Rx's Medication Instructions Recorded HYDROcodone/APAP 7.5-325MG [[place] 1 tab PO TID PRN #12 tab 11/17/20 7.5-325] Potassium Chloride ER [K-Dur 20] 20 meq PO BID 7 Days #14 tab 12/15/20 Lacosamide [Vimpat] 100 mg PO BID 7 Days #14 tab 01/16/21 Potassium Chloride ER [K-Dur 20] 20 meq PO BID 7 Days #14 tab 05/07/21 Allergies Allergy/AdvReac Type Severity Reaction Status Date / Time dihydroergotamine Allergy Unknown Unknown Verified 05/07/21 19:41 [From Migranal] gabapentin [From Neurontin] Allergy Itching/Swe Verified 05/07/21 19:41 lling latex Allergy Anaphylaxis Verified 05/07/21 19:41 naproxen [From Naprosyn] Allergy Anaphylaxis Verified 05/07/21 19:41 Penicillins Allergy Anaphylaxis Verified 05/07/21 19:41 prednisone Allergy Swelling Verified 05/07/21 19:41 quetiapine fumarate Allergy Itching, Verified 05/07/21 19:41 [From Seroquel] leg cramps rofecoxib [From Vioxx] Allergy Itching, Verified 05/07/21 19:41 leg cramps terfenadine [From Seldane] Allergy Rash/Hives Verified 05/07/21 19:41 tramadol Allergy Nausea & Verified 05/07/21 19:41 Vomiting/LEG CRAMPS/HEART FLUTTERS calcium carbonate [From DHEA] AdvReac Chest Pain Verified 05/07/21 19:41 calcium phosphate,dibasic AdvReac Chest Pain Verified 05/07/21 19:41 [From DHEA] clindamycin AdvReac muscle Verified 05/07/21 19:41 cramps clonidine AdvReac fast Verified 05/07/21 19:41 heartbeat, migraine dextromethorphan HBr AdvReac face/neck Verified 05/07/21 19:41 [From NyQuil] flushing diazepam [From Valium] AdvReac Nausea & Verified 05/07/21 19:41 Vomiting divalproex sodium AdvReac Nausea & Verified 05/07/21 19:41 [From Depakote] Vomiting doxylamine [From NyQuil] AdvReac face "beet Verified 05/07/21 19:41 red", elevated temp. ibuprofen [From Motrin] AdvReac abdominal Verified 05/07/21 19:41 & muscle cramps indomethacin [From Indocin] AdvReac Abdominal Verified 05/07/21 19:41 Pain,N/V ketorolac tromethamine AdvReac "built up Verified 05/07/21 19:41 [From Toradol] in system", had to be given something to reverse lorazepam [From Ativan] AdvReac Nausea & Verified 05/07/21 19:41 Vomiting memantine [From Namenda] AdvReac Itching Verified 05/07/21 19:41 metoclopramide HCl AdvReac muscle Verified 05/07/21 19:41 [From Reglan] cramps nortriptyline [From Pamelor] AdvReac Chest Pain Verified 05/07/21 19:41 prasterone (DHEA) [From DHEA] AdvReac Chest Pain Verified 05/07/21 19:41 prochlorperazine AdvReac leg Verified 05/07/21 19:41 [From Compazine] cramping propranolol AdvReac Chest Pain Verified 05/07/21 19:41 pseudoephedrine HCl AdvReac face "beet Verified 05/07/21 19:41 [From NyQuil] red", elevated temp. quetiapine [From Seroquel] AdvReac leg Verified 05/07/21 19:41 cramping sumatriptan [From Imitrex] AdvReac migrane Verified 05/07/21 19:41 sumatriptan succinate AdvReac migrane Verified 05/07/21 19:41 [From Imitrex] topiramate [From Topamax] AdvReac "built up Verified 05/07/21 19:41 in system", had to be given something to reverse trazodone AdvReac "built up Verified 05/07/21 19:41 in system", had to be given something to reverse zolpidem tartrate AdvReac "Became Verified 05/07/21 19:41 [From Ambien] violent with no memory" zonisamide [From Zonegran] AdvReac inability Verified 05/07/21 19:41 to eat prosyn Allergy Itching Uncoded 05/07/21 19:41 artificial sweetener AdvReac SEVERE Uncoded 05/07/21 19:41 MIGRAINE HEADACHE Review of Systems ROS Statement: Those systems with pertinent positive or pertinent negative responses have been documented in the HPI. ROS Other: All systems not noted in ROS Statement are negative. Past Medical History Past Medical History: Hyperlipidemia, Hypertension, Seizure Disorder Additional Past Medical History / Comment(s): Migraines, viral meningitis x3 as a child, 1995, 2000, chronic back pain, nerve blocks 08/2016 and 12/2016. Last seizure 10/10/2020, "ABSENT SEIZURES. HX TACHYCARDIA, GBS/CIPD, PTSD. History of Any Multi-Drug Resistant Organisms: None Reported Past Surgical History: Appendectomy, Section, Cholecystectomy, Hernia Repair, Hysterectomy, Orthopedic Surgery, Tonsillectomy, Tubal Ligation Additional Past Surgical History / Comment(s): Hiatal Hernia, umbilical hernia repair, left rotator cuff repair, bilateral knee scopes, pain clinic procedures- occipital nerve block. abd exploratory sx(endometreosis), 3 abd scopes 1981, 1989, 1991), lumbar puncture. EGD. nerve biopsy, salvalry gland biospy Past Anesthesia/Blood Transfusion Reactions: No Reported Reaction Additional Past Anesthesia/Blood Transfusion Reaction / Comment(s): Claustrophobic Past Psychological History: Anxiety, Bipolar, Panic Disorder, PTSD Smoking Status: Current every day smoker Past Alcohol Use History: None Reported Past Drug Use History: None Reported - Past Family History Mother Family Medical History: Cancer, Dementia, Diabetes Mellitus, GERD/Reflux, Hyperlipidemia, Hypertension, Thyroid Disorder Additional Family Medical History / Comment(s): Quad CABG, cardiac stents, toes ampuated and left leg amputated Father History Unknown: Yes Family Medical History: No Reported History General Exam Limitations: no limitations General appearance: alert, in no apparent distress Head exam: Present: atraumatic, normocephalic, normal inspection Eye exam: Present: normal appearance, PERRL. Absent: scleral icterus, conjunctival injection, periorbital swelling, periorbital tenderness ENT exam: Present: normal exam, normal oropharynx, mucous membranes moist Neck exam: Present: normal inspection, full ROM. Absent: tenderness, meningismus, lymphadenopathy, thyromegaly Respiratory exam: Present: normal lung sounds bilaterally. Absent: respiratory distress, wheezes, rales, rhonchi, stridor Cardiovascular Exam: Present: regular rate, normal rhythm, normal heart sounds GI/Abdominal exam: Present: soft Extremities exam: Present: full ROM. Absent: tenderness Back exam: Present: normal inspection, full ROM. Absent: CVA tenderness (R), CVA tenderness (L), rash noted Neurological exam: Present: alert, oriented X3 Psychiatric exam: Present: normal affect, normal mood Skin exam: Present: warm, dry, intact, normal color. Absent: rash, cyanosis, diaphoretic, petechiae, pallor Course Vital Signs 05/07/21 19:37 Temperature 99.1 F Pulse Rate 70 Respiratory 22 Rate Blood Pressure 162/105 O2 Sat by Pulse 96 Oximetry Medical Decision Making - Medical Decision Making 51-year-old well appearing female presents with complaints of a headache that started last night, similar to her previous headaches. She denies any fevers. She is concerned for hypokalemia related to vomiting. She was given Zofran, Benadryl, IV fluids and 2 doses of Dilaudid. Potassium level is 2.8. Case was discussed with Dr. Mclaughlin and she was given by 40meq of K-dur and a prescription for supplementation. She does have pain with her primary care doctor next week. Patient is agreeable to being discharged home and will follow up with her primary care doctor and return to the emergency room with any new or concerning symptoms. - Lab Data Result diagrams: 05/07/21 22:39 05/07/21 22:39 Lab Results 05/07/21 05/07/21 Range/Units 22:39 22:39 WBC 13.2 H (3.8-10.6) k/uL RBC 3.56 L (3.80-5.40) m/uL Hgb 12.0 (11.4-16.0) gm/dL Hct 35.6 (34.0-46.0) % MCV 100.1 H D (80.0-100.0) fL MCH 33.7 (25.0-35.0) pg MCHC 33.6 (31.0-37.0) g/dL RDW 14.5 (11.5-15.5) % Plt Count 286 (150-450) k/uL MPV 8.4 Neutrophils % 69 % Lymphocytes % 23 % Monocytes % 5 % Eosinophils % 2 % Basophils % 1 % Neutrophils # 9.1 H (1.3-7.7) k/uL Lymphocytes # 3.0 (1.0-4.8) k/uL Monocytes # 0.7 (0-1.0) k/uL Eosinophils # 0.2 (0-0.7) k/uL Basophils # 0.1 (0-0.2) k/uL Macrocytosis Slight Sodium 138 (137-145) mmol/L Potassium 2.8 L (3.5-5.1) mmol/L Chloride 106 (98-107) mmol/L Carbon Dioxide 28 (22-30) mmol/L Anion Gap 4 mmol/L BUN 6 L (7-17) mg/dL Creatinine 0.68 (0.52-1.04) mg/dL Est GFR (CKD-EPI)AfAm >90 (>60 ml/min/1.73 sqM) Est GFR (CKD-EPI)NonAf >90 (>60 ml/min/1.73 sqM) Glucose 97 (74-99) mg/dL Calcium 8.5 (8.4-10.2) mg/dL Disposition Clinical Impression: Headache, Hypokalemia Disposition: HOME SELF-CARE Condition: Good Instructions (If sedation given, give patient instructions): Acute Headache (ED), Hypokalemia (ED) Additional Instructions: Continue your previously prescribed medications for your migraine headaches. Keep your appointment with your primary care doctor next week. Take the potassium supplementation as prescribed for low potassium level and discuss continuation of supplementation with your primary care doctor. Return to the emergency room with any new or concerning symptoms. Prescriptions: Potassium Chloride ER [K-Dur 20] 20 meq PO BID 7 Days #14 tab Is patient prescribed a controlled substance at d/c from ED?: No Referrals: José Reece MD [Primary Care Provider] - 1-2 days Time of Disposition: 23:20
[2021-05-07 23:02] LABS: African American GFR (CKD) >90 (>60 ml/min/1.73 sqM); Anion Gap 4 mmol/L; Basophils # (A) 0.1 k/uL (0-0.2); Basophils % (A) 1 %; Blood Urea Nitrogen 6 mg/dL (7-17); Calcium 8.5 mg/dL (8.4-10.2); Carbon Dioxide 28 mmol/L (22-30); Chloride 106 mmol/L (98-107); Eosinophils # (A) 0.2 k/uL (0-0.7); Eosinophils % (A) 2 %; Glucose 97 mg/dL (74-99); HCT 35.6 % (34.0-46.0); Lymphocytes % (A) 23 %; MCH 33.7 pg (25.0-35.0); MCHC 33.6 g/dL (31.0-37.0); Macrocytosis Slight; Mean Platelet Volume 8.4; Monocytes # (A) 0.7 k/uL (0-1.0); Monocytes % (A) 5 %; Neutrophils # (A) 9.1 k/uL (1.3-7.7); Neutrophils % (A) 69 %; Non-African American GFR(CKD) >90 (>60 ml/min/1.73 sqM); Platelet Count 286 k/uL (150-450); Potassium 2.8 mmol/L (3.5-5.1); RBC 3.56 m/uL (3.80-5.40); RDW 14.5 % (11.5-15.5); Sodium 138 mmol/L (137-145); WBC 13.2 k/uL (3.8-10.6)
[2021-05-07 23:05] LABS: MCV 100.1 fL (80.0-100.0)
[2021-05-07] MEDS ORDERED: POTASSIUM CHLORIDE ER 20 MEQ TAB.ER PO STA (23:12)
[2021-05-07] MEDS ORDERED: ONDANSETRON 4 MG ODT STARTER PACK 2 TAB BTL PO STA (23:20)
[2021-05-07 23:32] VITALS: BP 146/103; PULSE 94; RESP 16
== END 2021-05-08 00:50 | disposition home or self-care (01) ==
LOC: EC 19:16
DX: E87.6 Hypokalemia (principal); R51.9 Headache, unspecified; I10 Essential (primary) hypertension; E78.5 Hyperlipidemia, unspecified; G40.909 Epilepsy, unspecified, not intractable, without status epilepticus; F31.9 Bipolar disorder, unspecified; F41.9 Anxiety disorder, unspecified; F17.200 Nicotine dependence, unspecified, uncomplicated; Z79.51 Long term (current) use of inhaled steroids; Z79.899 Other long term (current) drug therapy
CPT/HCPCS: 36415; 80048; 85025; 99284; 96374; 96375 ×3; 96376; J1200; J2405; J1642; J1170; S0119

== ENCOUNTER 2021-05-29 19:09 | Emergency (ER) | payer OTHER ==
[2021-05-29 19:15] VITALS: TEMP 98.2
[2021-05-29] MEDS ORDERED: ONDANSETRON 4 MG/2 ML VIAL IVP STA (19:38)
[2021-05-29] MEDS ORDERED: diphenhydrAMINE 50 MG/ML 1 ML VIAL IVP STA (19:38)
[2021-05-29] MEDS ORDERED: SODIUM CHLORIDE 0.9% 500 ML 500 ML IV ONE (19:38)
--- NOTE | 2021-05-29 19:40 | ED ---
General Adult HPI - General Chief complaint: Headache Stated complaint: headache Time Seen by Provider: 05/29/21 19:15 Source: patient, RN notes reviewed, old records reviewed Mode of arrival: ambulatory - History of Present Illness Initial comments: This is a 51-year-old female presents emergency department stating she has a chronic history of migraines. Patient has a 40 history of this particular migraine. Patient states headache is normal for her just not going away. Schuyler alva states she was started on some new medication from [facility] it doesn't appear to be working. Patient states started vomiting today so she decided come to the emergency department. Patient denies any fever chills or cough per patient denies any new symptoms that are any different than her normal migraine headache. Patient denies any numbness or weakness. Patient states she normally can't move her legs very much because of a previous diagnosis of the brain. Patient denies any chest pain difficulty breathing. Patient denies abdominal pain. - Related Data Home Medications Medication Instructions Recorded Confirmed Galcanezumab-Gnlm [Emgality Pen] 120 mg SQ Q30D 04/28/20 01/04/21 amLODIPine [Norvasc] 5 mg PO DAILY 04/28/20 01/04/21 Albuterol Inhaler [Ventolin Hfa 1 - 2 puff INHALATION RT-Q6H PRN 11/15/20 01/04/21 Inhaler] Omeprazole [PriLOSEC] 20 mg PO BID 12/15/20 01/04/21 Thiamine [Vitamin B-1] 100 mg PO DAILY 01/04/21 01/04/21 Previous Rx's Medication Instructions Recorded HYDROcodone/APAP 7.5-325MG [[place] 1 tab PO TID PRN #12 tab 11/17/20 7.5-325] Potassium Chloride ER [K-Dur 20] 20 meq PO BID 7 Days #14 tab 12/15/20 Lacosamide [Vimpat] 100 mg PO BID 7 Days #14 tab 01/16/21 Potassium Chloride ER [K-Dur 20] 20 meq PO BID 7 Days #14 tab 05/07/21 Ondansetron [Zofran] 4 mg PO Q8HR PRN #10 tab 05/29/21 Allergies Allergy/AdvReac Type Severity Reaction Status Date / Time dihydroergotamine Allergy Unknown Unknown Verified 05/29/21 19:15 [From Migranal] gabapentin [From Neurontin] Allergy Itching/Swe Verified 05/29/21 19:15 lling latex Allergy Anaphylaxis Verified 05/29/21 19:15 naproxen [From Naprosyn] Allergy Anaphylaxis Verified 05/29/21 19:15 Penicillins Allergy Anaphylaxis Verified 05/29/21 19:15 prednisone Allergy Swelling Verified 05/29/21 19:15 quetiapine fumarate Allergy Itching, Verified 05/29/21 19:15 [From Seroquel] leg cramps rofecoxib [From Vioxx] Allergy Itching, Verified 05/29/21 19:15 leg cramps terfenadine [From Seldane] Allergy Rash/Hives Verified 05/29/21 19:15 tramadol Allergy Nausea & Verified 05/29/21 19:15 Vomiting/LEG CRAMPS/HEART FLUTTERS calcium carbonate [From DHEA] AdvReac Chest Pain Verified 05/29/21 19:15 calcium phosphate,dibasic AdvReac Chest Pain Verified 05/29/21 19:15 [From DHEA] clindamycin AdvReac muscle Verified 05/29/21 19:15 cramps clonidine AdvReac fast Verified 05/29/21 19:15 heartbeat, migraine dextromethorphan HBr AdvReac face/neck Verified 05/29/21 19:15 [From NyQuil] flushing diazepam [From Valium] AdvReac Nausea & Verified 05/29/21 19:15 Vomiting divalproex sodium AdvReac Nausea & Verified 05/29/21 19:15 [From Depakote] Vomiting doxylamine [From NyQuil] AdvReac face "beet Verified 05/29/21 19:15 red", elevated temp. ibuprofen [From Motrin] AdvReac abdominal Verified 05/29/21 19:15 & muscle cramps indomethacin [From Indocin] AdvReac Abdominal Verified 05/29/21 19:15 Pain,N/V ketorolac tromethamine AdvReac "built up Verified 05/29/21 19:15 [From Toradol] in system", had to be given something to reverse lorazepam [From Ativan] AdvReac Nausea & Verified 05/29/21 19:15 Vomiting memantine [From Namenda] AdvReac Itching Verified 05/29/21 19:15 metoclopramide HCl AdvReac muscle Verified 05/29/21 19:15 [From Reglan] cramps nortriptyline [From Pamelor] AdvReac Chest Pain Verified 05/29/21 19:15 prasterone (DHEA) [From DHEA] AdvReac Chest Pain Verified 05/29/21 19:15 prochlorperazine AdvReac leg Verified 05/29/21 19:15 [From Compazine] cramping propranolol AdvReac Chest Pain Verified 05/29/21 19:15 pseudoephedrine HCl AdvReac face "beet Verified 05/29/21 19:15 [From NyQuil] red", elevated temp. quetiapine [From Seroquel] AdvReac leg Verified 05/29/21 19:15 cramping sumatriptan [From Imitrex] AdvReac migrane Verified 05/29/21 19:15 sumatriptan succinate AdvReac migrane Verified 05/29/21 19:15 [From Imitrex] topiramate [From Topamax] AdvReac "built up Verified 05/29/21 19:15 in system", had to be given something to reverse trazodone AdvReac "built up Verified 05/29/21 19:15 in system", had to be given something to reverse zolpidem tartrate AdvReac "Became Verified 05/29/21 19:15 [From Ambien] violent with no memory" zonisamide [From Zonegran] AdvReac inability Verified 05/29/21 19:15 to eat prosyn Allergy Itching Uncoded 05/29/21 19:15 artificial sweetener AdvReac SEVERE Uncoded 05/29/21 19:15 MIGRAINE HEADACHE Review of Systems ROS Statement: Those systems with pertinent positive or pertinent negative responses have been documented in the HPI. ROS Other: All systems not noted in ROS Statement are negative. Past Medical History Past Medical History: Hyperlipidemia, Hypertension, Seizure Disorder Additional Past Medical History / Comment(s): Migraines, viral meningitis x3 as a child, 1995, 2000, chronic back pain, nerve blocks 08/2016 and 12/2016. Last seizure 10/10/2020, "ABSENT SEIZURES. HX TACHYCARDIA, GBS/CIPD, PTSD. History of Any Multi-Drug Resistant Organisms: None Reported Past Surgical History: Appendectomy, Section, Cholecystectomy, Hernia Repair, Hysterectomy, Orthopedic Surgery, Tonsillectomy, Tubal Ligation Additional Past Surgical History / Comment(s): Hiatal Hernia, umbilical hernia repair, left rotator cuff repair, bilateral knee scopes, pain clinic procedures- occipital nerve block. abd exploratory sx(endometreosis), 3 abd scopes 1981, 1989, 1991), lumbar puncture. EGD. nerve biopsy, salvalry gland biospy Past Anesthesia/Blood Transfusion Reactions: No Reported Reaction Additional Past Anesthesia/Blood Transfusion Reaction / Comment(s): Claustrophobic Past Psychological History: Anxiety, Bipolar, Panic Disorder, PTSD Smoking Status: Current every day smoker Past Alcohol Use History: None Reported Past Drug Use History: None Reported - Past Family History Mother Family Medical History: Cancer, Dementia, Diabetes Mellitus, GERD/Reflux, Hyperlipidemia, Hypertension, Thyroid Disorder Additional Family Medical History / Comment(s): Quad CABG, cardiac stents, toes ampuated and left leg amputated Father History Unknown: Yes Family Medical History: No Reported History General Exam - General Exam Comments Initial Comments: GENERAL: Patient is well-developed and well-nourished. Patient is nontoxic and well-hydrated and is in mild distress. ENT: Neck is soft and supple. No significant lymphadenopathy is noted. Oropharynx is clear. Moist mucous membranes. Neck has full range of motion without eliciting any pain. EYES: The sclera were anicteric and conjunctiva were pink and moist. Extraocular movements were intact and pupils were equal round and reactive to light. Eyelids were unremarkable. PULMONARY: Unlabored respirations. Good breath sounds bilaterally. No audible rales rhonchi or wheezing was noted. CARDIOVASCULAR: There is a regular rate and rhythm without any murmurs gallops or rubs. ABDOMEN: Soft and nontender with normal bowel sounds. No palpable organomegaly was noted. There is no palpable pulsatile mass. SKIN: Skin is clear with no lesions or rashes and otherwise unremarkable. NEUROLOGIC: Patient is alert and oriented x3. Cranial nerves II through XII are grossly intact. Motor and sensory are also intact. Normal speech, volume and content. Symmetrical smile. MUSCULOSKELETAL: Patient only moves her legs minimally but she states this is her baseline. LYMPHATICS: No significant lymphadenopathy is noted PSYCHIATRIC: Normal psychiatric evaluation. Course Vital Signs 05/29/21 19:13 Temperature 98.2 F Medical Decision Making - Medical Decision Making EKG shows sinus rhythm at 89 bpm NC interval is on a 56 QRS is 80 QT interval 354 QTC is 41 per patient's EKG shows occasional PVC but there is no ST segment elevation or depression. Patient received Zofran and Benadryl and diphenhydramine. I will back in the room to reevaluate the patient she was insisting on getting Dilaudid I told her she had been here 49 times last year and got Dilaudid and most of those visits and I was not comfortable doing that she stated that if I gave her some Zofran she could go home and take her narcotics at home. Patient will be discharged home - Lab Data Result diagrams: 05/29/21 20:03 05/29/21 20:03 Lab Results 05/29/21 05/29/21 Range/Units 20:03 20:03 WBC 7.0 (3.8-10.6) k/uL RBC 3.82 (3.80-5.40) m/uL Hgb 12.9 (11.4-16.0) gm/dL Hct 37.9 (34.0-46.0) % MCV 99.1 (80.0-100.0) fL MCH 33.9 (25.0-35.0) pg MCHC 34.2 (31.0-37.0) g/dL RDW 13.3 (11.5-15.5) % Plt Count 221 (150-450) k/uL MPV 9.6 Neutrophils % 67 % Lymphocytes % 25 % Monocytes % 5 % Eosinophils % 1 % Basophils % 1 % Neutrophils # 4.7 (1.3-7.7) k/uL Lymphocytes # 1.7 (1.0-4.8) k/uL Monocytes # 0.4 (0-1.0) k/uL Eosinophils # 0.1 (0-0.7) k/uL Basophils # 0.1 (0-0.2) k/uL Sodium 137 (137-145) mmol/L Potassium 3.4 L (3.5-5.1) mmol/L Chloride 102 (98-107) mmol/L Carbon Dioxide 31 H (22-30) mmol/L Anion Gap 4 mmol/L BUN 9 (7-17) mg/dL Creatinine 0.71 (0.52-1.04) mg/dL Est GFR (CKD-EPI)AfAm >90 (>60 ml/min/1.73 sqM) Est GFR (CKD-EPI)NonAf >90 (>60 ml/min/1.73 sqM) Glucose 102 H (74-99) mg/dL Calcium 8.8 (8.4-10.2) mg/dL Total Bilirubin 0.4 (0.2-1.3) mg/dL AST 26 (14-36) U/L ALT 19 (4-34) U/L Alkaline Phosphatase 140 H (38-126) U/L Total Protein 6.2 L (6.3-8.2) g/dL Albumin 3.5 (3.5-5.0) g/dL Disposition Clinical Impression: Chronic headaches Disposition: HOME SELF-CARE Instructions (If sedation given, give patient instructions): Migraine Headache (ED) Prescriptions: Ondansetron [Zofran] 4 mg PO Q8HR PRN #10 tab PRN Reason: Nausea Is patient prescribed a controlled substance at d/c from ED?: No Referrals: José Reece MD [Primary Care Provider] - 1-2 days Time of Disposition: 21:08
[2021-05-29 20:19] LABS: Basophils # (A) 0.1 k/uL (0-0.2); Basophils % (A) 1 %; Eosinophils # (A) 0.1 k/uL (0-0.7); Eosinophils % (A) 1 %; HCT 37.9 % (34.0-46.0); HGB 12.9 gm/dL (11.4-16.0); Lymphocytes # (A) 1.7 k/uL (1.0-4.8); Lymphocytes % (A) 25 %; MCH 33.9 pg (25.0-35.0); MCHC 34.2 g/dL (31.0-37.0); MCV 99.1 fL (80.0-100.0); Mean Platelet Volume 9.6; Monocytes # (A) 0.4 k/uL (0-1.0); Monocytes % (A) 5 %; Neutrophils # (A) 4.7 k/uL (1.3-7.7); Neutrophils % (A) 67 %; Platelet Count 221 k/uL (150-450); RBC 3.82 m/uL (3.80-5.40); RDW 13.3 % (11.5-15.5)
[2021-05-29 20:45] LABS: ALT 19 U/L (4-34); AST 26 U/L (14-36); African American GFR (CKD) >90 (>60 ml/min/1.73 sqM); Albumin 3.5 g/dL (3.5-5.0); Alkaline Phosphatase 140 U/L (38-126); Anion Gap 4 mmol/L; Blood Urea Nitrogen 9 mg/dL (7-17); Calcium 8.8 mg/dL (8.4-10.2); Carbon Dioxide 31 mmol/L (22-30); Chloride 102 mmol/L (98-107); Glucose 102 mg/dL (74-99); Non-African American GFR(CKD) >90 (>60 ml/min/1.73 sqM); Potassium 3.4 mmol/L (3.5-5.1); Sodium 137 mmol/L (137-145); Total Bilirubin 0.4 mg/dL (0.2-1.3); Total Protein 6.2 g/dL (6.3-8.2)
[2021-05-29] MEDS ORDERED: ONDANSETRON 4 MG ODT STARTER PACK 2 TAB BTL PO STA (21:09)
== END 2021-05-29 22:10 | disposition home or self-care (01) ==
LOC: EC 19:09
DX: G89.29 Other chronic pain (principal); R51.9 Headache, unspecified; R11.10 Vomiting, unspecified; I10 Essential (primary) hypertension; E78.5 Hyperlipidemia, unspecified; G40.909 Epilepsy, unspecified, not intractable, without status epilepticus; F31.9 Bipolar disorder, unspecified; F41.9 Anxiety disorder, unspecified; F17.200 Nicotine dependence, unspecified, uncomplicated; Z79.51 Long term (current) use of inhaled steroids; Z79.899 Other long term (current) drug therapy
CPT/HCPCS: 36415; 93005; 80053; 85025; 99284; 96374; 96375 ×3; J1200; J2405; J1642; S0119; J1790

== ENCOUNTER 2021-06-03 13:01 | Emergency (ER) | payer OTHER ==
[2021-06-03 13:04] VITALS: BP 145/94; PULSE 99; RESP 20; TEMP 98.5
[2021-06-03] MEDS ORDERED: diphenhydrAMINE 50 MG/ML 1 ML VIAL IM STA (13:36)
[2021-06-03] MEDS ORDERED: ONDANSETRON 4 MG/2 ML VIAL IM STA (13:36)
--- NOTE | 2021-06-03 13:40 | ED ---
General Adult HPI - General Chief complaint: Headache Stated complaint: Migraine Time Seen by Provider: 06/03/21 13:21 Source: patient, RN notes reviewed Mode of arrival: ambulatory Limitations: no limitations - History of Present Illness Initial comments: Patient is a pleasant 51-year-old female presenting to the emergency Department with complaints of headache. Patient does have chronic headaches exactly same as this. Patient does have associated nausea and vomiting. Patient has photophobia. 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 No fever. No new weakness. Headache is severe and right-sided. Not sudden onset. Patient does see a specialist at [facility]. - Related Data Home Medications Medication Instructions Recorded Confirmed Galcanezumab-Gnlm [Emgality Pen] 120 mg SQ Q30D 04/28/20 01/04/21 amLODIPine [Norvasc] 5 mg PO DAILY 04/28/20 01/04/21 Albuterol Inhaler [Ventolin Hfa 1 - 2 puff INHALATION RT-Q6H PRN 11/15/20 01/04/21 Inhaler] Omeprazole [PriLOSEC] 20 mg PO BID 12/15/20 01/04/21 Thiamine [Vitamin B-1] 100 mg PO DAILY 01/04/21 01/04/21 Previous Rx's Medication Instructions Recorded HYDROcodone/APAP 7.5-325MG [[place] 1 tab PO TID PRN #12 tab 11/17/20 7.5-325] Potassium Chloride ER [K-Dur 20] 20 meq PO BID 7 Days #14 tab 12/15/20 Lacosamide [Vimpat] 100 mg PO BID 7 Days #14 tab 01/16/21 Potassium Chloride ER [K-Dur 20] 20 meq PO BID 7 Days #14 tab 05/07/21 Ondansetron [Zofran] 4 mg PO Q8HR PRN #10 tab 05/29/21 Allergies Allergy/AdvReac Type Severity Reaction Status Date / Time dihydroergotamine Allergy Unknown Unknown Verified 05/29/21 19:15 [From Migranal] gabapentin [From Neurontin] Allergy Itching/Swe Verified 05/29/21 19:15 lling latex Allergy Anaphylaxis Verified 06/03/21 13:04 naproxen [From Naprosyn] Allergy Anaphylaxis Verified 06/03/21 13:04 Penicillins Allergy Anaphylaxis Verified 06/03/21 13:04 prednisone Allergy Swelling Verified 06/03/21 13:04 quetiapine fumarate Allergy Itching, Verified 06/03/21 13:04 [From Seroquel] leg cramps rofecoxib [From Vioxx] Allergy Itching, Verified 06/03/21 13:04 leg cramps terfenadine [From Seldane] Allergy Rash/Hives Verified 06/03/21 13:04 tramadol Allergy Nausea & Verified 06/03/21 13:04 Vomiting/LEG CRAMPS/HEART FLUTTERS calcium carbonate [From DHEA] AdvReac Chest Pain Verified 06/03/21 13:04 calcium phosphate,dibasic AdvReac Chest Pain Verified 06/03/21 13:04 [From DHEA] clindamycin AdvReac muscle Verified 06/03/21 13:04 cramps clonidine AdvReac fast Verified 06/03/21 13:04 heartbeat, migraine dextromethorphan HBr AdvReac face/neck Verified 06/03/21 13:04 [From NyQuil] flushing diazepam [From Valium] AdvReac Nausea & Verified 06/03/21 13:04 Vomiting divalproex sodium AdvReac Nausea & Verified 06/03/21 13:04 [From Depakote] Vomiting doxylamine [From NyQuil] AdvReac face "beet Verified 06/03/21 13:04 red", elevated temp. ibuprofen [From Motrin] AdvReac abdominal Verified 06/03/21 13:04 & muscle cramps indomethacin [From Indocin] AdvReac Abdominal Verified 06/03/21 13:04 Pain,N/V ketorolac tromethamine AdvReac "built up Verified 06/03/21 13:04 [From Toradol] in system", had to be given something to reverse lorazepam [From Ativan] AdvReac Nausea & Verified 06/03/21 13:04 Vomiting memantine [From Namenda] AdvReac Itching Verified 06/03/21 13:04 metoclopramide HCl AdvReac muscle Verified 06/03/21 13:04 [From Reglan] cramps nortriptyline [From Pamelor] AdvReac Chest Pain Verified 06/03/21 13:04 prasterone (DHEA) [From DHEA] AdvReac Chest Pain Verified 06/03/21 13:04 prochlorperazine AdvReac leg Verified 06/03/21 13:04 [From Compazine] cramping propranolol AdvReac Chest Pain Verified 06/03/21 13:04 pseudoephedrine HCl AdvReac face "beet Verified 06/03/21 13:04 [From NyQuil] red", elevated temp. quetiapine [From Seroquel] AdvReac leg Verified 06/03/21 13:04 cramping sumatriptan [From Imitrex] AdvReac migrane Verified 06/03/21 13:04 sumatriptan succinate AdvReac migrane Verified 06/03/21 13:04 [From Imitrex] topiramate [From Topamax] AdvReac "built up Verified 06/03/21 13:04 in system", had to be given something to reverse trazodone AdvReac "built up Verified 06/03/21 13:04 in system", had to be given something to reverse zolpidem tartrate AdvReac "Became Verified 06/03/21 13:04 [From Ambien] violent with no memory" zonisamide [From Zonegran] AdvReac inability Verified 06/03/21 13:04 to eat prosyn Allergy Itching Uncoded 06/03/21 13:04 artificial sweetener AdvReac SEVERE Uncoded 06/03/21 13:04 MIGRAINE HEADACHE Review of Systems ROS Statement: Those systems with pertinent positive or pertinent negative responses have been documented in the HPI. ROS Other: All systems not noted in ROS Statement are negative. Constitutional: Denies: fever Eyes: Reports: as per HPI ENT: Denies: ear pain Respiratory: Denies: cough Cardiovascular: Denies: chest pain Endocrine: Denies: fatigue Gastrointestinal: Reports: nausea, vomiting. Denies: abdominal pain Genitourinary: Denies: dysuria Musculoskeletal: Denies: back pain Skin: Denies: rash Neurological: Reports: as per HPI, headache Past Medical History Past Medical History: Hyperlipidemia, Hypertension, Seizure Disorder Additional Past Medical History / Comment(s): Migraines, viral meningitis x3 as a child, 1995, 2000, chronic back pain, nerve blocks 08/2016 and 12/2016. Last seizure 10/10/2020, "ABSENT SEIZURES. HX TACHYCARDIA, GBS/CIPD, PTSD. History of Any Multi-Drug Resistant Organisms: None Reported Past Surgical History: Appendectomy, Section, Cholecystectomy, Hernia Repair, Hysterectomy, Orthopedic Surgery, Tonsillectomy, Tubal Ligation Additional Past Surgical History / Comment(s): Hiatal Hernia, umbilical hernia repair, left rotator cuff repair, bilateral knee scopes, pain clinic procedures- occipital nerve block. abd exploratory sx(endometreosis), 3 abd scopes 1981, 1989, 1991), lumbar puncture. EGD. nerve biopsy, salvalry gland biospy Past Anesthesia/Blood Transfusion Reactions: No Reported Reaction Additional Past Anesthesia/Blood Transfusion Reaction / Comment(s): Claustrophobic Past Psychological History: Anxiety, Bipolar, Panic Disorder, PTSD Smoking Status: Current every day smoker Past Alcohol Use History: None Reported Past Drug Use History: None Reported - Past Family History Mother Family Medical History: Cancer, Dementia, Diabetes Mellitus, GERD/Reflux, Hyperlipidemia, Hypertension, Thyroid Disorder Additional Family Medical History / Comment(s): Quad CABG, cardiac stents, toes ampuated and left leg amputated Father History Unknown: Yes Family Medical History: No Reported History General Exam Limitations: no limitations General appearance: alert, in no apparent distress Head exam: Present: normocephalic Eye exam: Present: normal appearance, PERRL, EOMI ENT exam: Present: normal oropharynx Neck exam: Present: normal inspection Respiratory exam: Present: normal lung sounds bilaterally Cardiovascular Exam: Present: regular rate, normal rhythm GI/Abdominal exam: Present: soft. Absent: tenderness Extremities exam: Present: normal inspection Neurological exam: Present: alert, oriented X3, CN II-XII intact, other (Weakness lifting legs off the bed which patient states is chronic and unchanged) Expanded Cranial nerves: EOM's Intact: Normal Motor strength exam: RUE: 5, LUE: 5 Eye Response: (4) open spontaneously Motor Response: (6) obeys commands Verbal Response: (5) oriented Psychiatric exam: Present: normal affect, normal mood Skin exam: Present: normal color Course Vital Signs 06/03/21 13:02 Temperature 98.5 F Pulse Rate 99 Respiratory 20 Rate Blood Pressure 145/94 O2 Sat by Pulse 100 Oximetry Disposition Clinical Impression: Chronic headaches Disposition: HOME SELF-CARE Condition: Stable Instructions (If sedation given, give patient instructions): Acute Headache (ED) Additional Instructions: Please follow-up with your primary care physician in the headache doctor in the next day or 2 for recheck. Return for fever, worsening or change in symptoms, new weakness, or other concerns. Is patient prescribed a controlled substance at d/c from ED?: No Referrals: José Reece MD [Primary Care Provider] - 1-2 days Time of Disposition: 13:39
== END 2021-06-03 14:22 | disposition home or self-care (01) ==
LOC: EC 13:01
DX: R51.9 Headache, unspecified (principal); G89.29 Other chronic pain; E78.5 Hyperlipidemia, unspecified; I10 Essential (primary) hypertension; F41.9 Anxiety disorder, unspecified; F31.9 Bipolar disorder, unspecified; F43.10 Post-traumatic stress disorder, unspecified; F17.200 Nicotine dependence, unspecified, uncomplicated; Z91.040 Latex allergy status; Z88.0 Allergy status to penicillin; Z88.1 Allergy status to other antibiotic agents; Z88.6 Allergy status to analgesic agent; Z90.49 Acquired absence of other specified parts of digestive tract; Z90.710 Acquired absence of both cervix and uterus; Z98.51 Tubal ligation status
CPT/HCPCS: 99283; 96372 ×2; J1200; J2405

== ENCOUNTER 2021-08-12 13:32 | Emergency (ER) | payer OTHER ==
[2021-08-12 13:47] VITALS: TEMP 98.5
[2021-08-12] MEDS ORDERED: SODIUM CHLORIDE 0.9% 1,000 ML IV STA (16:07)
[2021-08-12] MEDS ORDERED: diphenhydrAMINE 50 MG/ML 1 ML VIAL IVP STA (16:11)
[2021-08-12] MEDS ORDERED: MORPHINE SULFATE 4 MG/ML SYRINGE IV STA (16:11)
[2021-08-12] MEDS ORDERED: ONDANSETRON 4 MG/2 ML VIAL IVP STA (16:11)
--- NOTE | 2021-08-12 16:13 | ED ---
Headache HPI - General Chief Complaint: Headache Stated Complaint: Headache/Loss of vision Time Seen by Provider: 08/12/21 15:59 Source: RN notes reviewed Mode of arrival: ambulatory Limitations: no limitations - History of Present Illness Initial Comments: Pt. is a 51-year-old female presents with a throbbing, aching, global headache which she states is consistent with her previous migraines. Patient also has some what she is described as black dots in her right vision which she has had previously. Patient has 7 neurologist at the [facility]. Including a neural family living educator. Patient has abortive medication at home and states her headache went away then came back. Patient is on a new abortive medication. Recently tried on buprenorphine but states she had an ALLERGIC reaction. This sounds as if the patient is in pain management. Headache is severe, insidious onset, right-sided. No neck pain or nuchal rigidity no fever or chills, no changes in vision or hearing, no sore throat or difficulty with speech, no neck pain, no chest pain or shortness of breath, no abdominal pain, no vomiting, no changes in urination or bowel movements, no numbness or tingling, no extremity pain, no skin rashes or lesions. MD Complaint: headache - Related Data Home Medications Medication Instructions Recorded Confirmed Galcanezumab-Gnlm [Emgality Pen] 120 mg SQ Q30D 04/28/20 07/20/21 amLODIPine [Norvasc] 5 mg PO HS 04/28/20 07/20/21 Omeprazole [PriLOSEC] 20 mg PO BID 12/15/20 07/20/21 Thiamine [Vitamin B-1] 100 mg PO HS 01/04/21 07/20/21 Atorvastatin [Lipitor] 40 mg PO HS 07/20/21 07/20/21 Cholecalciferol [Vitamin D3 (25 25 mcg PO HS 07/20/21 07/20/21 Mcg = 1000 Iu)] Cyanocobalamin (Vitamin B-12) 1,000 mcg PO HS 07/20/21 07/20/21 [Vitamin B-12] DULoxetine HCL [Cymbalta] 60 mg PO HS 07/20/21 07/20/21 buprenorphine HCL [Subutex] 1 mg SUBLINGUAL TID 07/20/21 07/20/21 Previous Rx's Medication Instructions Recorded HYDROcodone/APAP 7.5-325MG [[place] 1 tab PO TID PRN #12 tab 11/17/20 7.5-325] Lacosamide [Vimpat] 100 mg PO BID 7 Days #14 tab 01/16/21 Potassium Chloride ER [K-Dur 20] 20 meq PO DAILY 10 Days #10 tab 08/12/21 Allergies Allergy/AdvReac Type Severity Reaction Status Date / Time dihydroergotamine Allergy Unknown Unknown Verified 08/12/21 13:49 [From Migranal] buprenorphine Allergy Rash/Hives Verified 08/12/21 13:49 gabapentin [From Neurontin] Allergy Itching/Swe Verified 08/12/21 13:49 lling latex Allergy Anaphylaxis Verified 08/12/21 13:49 naproxen [From Naprosyn] Allergy Anaphylaxis Verified 08/12/21 13:49 Penicillins Allergy Anaphylaxis Verified 08/12/21 13:49 prednisone Allergy Swelling Verified 08/12/21 13:49 quetiapine fumarate Allergy Itching, Verified 08/12/21 13:49 [From Seroquel] leg cramps rofecoxib [From Vioxx] Allergy Itching, Verified 08/12/21 13:49 leg cramps terfenadine [From Seldane] Allergy Rash/Hives Verified 08/12/21 13:49 tramadol Allergy Nausea & Verified 08/12/21 13:49 Vomiting/LEG CRAMPS/HEART FLUTTERS calcium carbonate [From DHEA] AdvReac Chest Pain Verified 08/12/21 13:49 calcium phosphate,dibasic AdvReac Chest Pain Verified 08/12/21 13:49 [From DHEA] clindamycin AdvReac muscle Verified 08/12/21 13:49 cramps clonidine AdvReac fast Verified 08/12/21 13:49 heartbeat, migraine dextromethorphan HBr AdvReac face/neck Verified 08/12/21 13:49 [From NyQuil] flushing diazepam [From Valium] AdvReac Nausea & Verified 08/12/21 13:49 Vomiting divalproex sodium AdvReac Nausea & Verified 08/12/21 13:49 [From Depakote] Vomiting doxylamine [From NyQuil] AdvReac face "beet Verified 08/12/21 13:49 red", elevated temp. ibuprofen [From Motrin] AdvReac abdominal Verified 08/12/21 13:49 & muscle cramps indomethacin [From Indocin] AdvReac Abdominal Verified 08/12/21 13:49 Pain,N/V ketorolac tromethamine AdvReac "built up Verified 08/12/21 13:49 [From Toradol] in system", had to be given something to reverse lorazepam [From Ativan] AdvReac Nausea & Verified 08/12/21 13:49 Vomiting memantine [From Namenda] AdvReac Itching Verified 08/12/21 13:49 metoclopramide HCl AdvReac muscle Verified 08/12/21 13:49 [From Reglan] cramps nortriptyline [From Pamelor] AdvReac Chest Pain Verified 08/12/21 13:49 prasterone (DHEA) [From DHEA] AdvReac Chest Pain Verified 08/12/21 13:49 prochlorperazine AdvReac leg Verified 08/12/21 13:49 [From Compazine] cramping propranolol AdvReac Chest Pain Verified 08/12/21 13:49 pseudoephedrine HCl AdvReac face "beet Verified 08/12/21 13:49 [From NyQuil] red", elevated temp. quetiapine [From Seroquel] AdvReac leg Verified 08/12/21 13:49 cramping sumatriptan [From Imitrex] AdvReac migrane Verified 08/12/21 13:49 sumatriptan succinate AdvReac migrane Verified 08/12/21 13:49 [From Imitrex] topiramate [From Topamax] AdvReac "built up Verified 08/12/21 13:49 in system", had to be given something to reverse trazodone AdvReac "built up Verified 08/12/21 13:49 in system", had to be given something to reverse zolpidem tartrate AdvReac "Became Verified 08/12/21 13:49 [From Ambien] violent with no memory" zonisamide [From Zonegran] AdvReac inability Verified 08/12/21 13:49 to eat prosyn Allergy Itching Uncoded 08/12/21 13:49 artificial sweetener AdvReac SEVERE Uncoded 05/08/22 13:49 MIGRAINE HEADACHE Review of Systems ROS Statement: Those systems with pertinent positive or pertinent negative responses have been documented in the HPI. ROS Other: All systems not noted in ROS Statement are negative. Past Medical History Past Medical History: Hyperlipidemia, Hypertension, Seizure Disorder Additional Past Medical History / Comment(s): Migraines, viral meningitis x3 as a child, 1995, 2000, chronic back pain, nerve blocks 08/2016 and 12/2016. Last seizure 10/10/2020, "ABSENT SEIZURES. HX TACHYCARDIA, GBS/CIPD, PTSD. History of Any Multi-Drug Resistant Organisms: None Reported Past Surgical History: Appendectomy, Section, Cholecystectomy, Hernia Repair, Hysterectomy, Orthopedic Surgery, Tonsillectomy, Tubal Ligation Additional Past Surgical History / Comment(s): Hiatal Hernia, umbilical hernia repair, left rotator cuff repair, bilateral knee scopes, pain clinic procedures- occipital nerve block. abd exploratory sx(endometreosis), 3 abd scopes 1981, 1989, 1991), lumbar puncture. EGD. nerve biopsy, salvalry gland biospy Past Anesthesia/Blood Transfusion Reactions: No Reported Reaction Additional Past Anesthesia/Blood Transfusion Reaction / Comment(s): Claustrophobic Past Psychological History: Anxiety, Bipolar, Panic Disorder, PTSD Smoking Status: Current every day smoker Past Alcohol Use History: None Reported Past Drug Use History: None Reported - Past Family History Mother Family Medical History: Cancer, Dementia, Diabetes Mellitus, GERD/Reflux, Hyperlipidemia, Hypertension, Thyroid Disorder Additional Family Medical History / Comment(s): Quad CABG, cardiac stents, toes ampuated and left leg amputated Father History Unknown: Yes Family Medical History: No Reported History General Exam Limitations: no limitations General appearance: alert, in distress Head exam: Present: atraumatic, normocephalic, normal inspection Eye exam: Present: normal appearance, PERRL, EOMI. Absent: scleral icterus, conjunctival injection, periorbital swelling ENT exam: Present: normal exam, mucous membranes moist Neck exam: Present: normal inspection. Absent: tenderness, meningismus, lymphadenopathy Respiratory exam: Present: normal lung sounds bilaterally. Absent: respiratory distress, wheezes, rales, rhonchi, stridor Cardiovascular Exam: Present: regular rate, normal rhythm, normal heart sounds. Absent: systolic murmur, diastolic murmur, rubs, gallop, clicks GI/Abdominal exam: Present: soft, normal bowel sounds. Absent: distended, tenderness, guarding, rebound, rigid Extremities exam: Present: normal inspection, full ROM, normal capillary refill. Absent: tenderness, pedal edema, joint swelling, calf tenderness Back exam: Present: normal inspection Neurological exam: Present: alert, oriented X3, CN II-XII intact, normal gait. Absent: altered, abnormal gait, motor sensory deficit, reflexes normal Psychiatric exam: Present: normal affect, normal mood Skin exam: Present: warm, dry, intact, normal color. Absent: rash Course Vital Signs 08/12/21 13:45 Temperature 98.5 F Pulse Rate 104 H Respiratory 20 Rate Blood Pressure 129/92 O2 Sat by Pulse 98 Oximetry - Reevaluation(s) Reevaluation #1: 08/12/21 17:28 Patient reevaluated, states her headache is helped minimally. Still complaining of a significant headache. Case was discussed with ED attending physician. Reevaluation #2: 08/12/21 17:46 Repeat neurological examination is normal. Cranial nerves II through XII are intact. Patient is alert and oriented 4. No focal deficits. Note that the patient is able to joke around with me on reevaluation stating that she would prefer a "guillotine "for treatment. She then goes on to state that "they could reattachment head after." Patient stating this jokingly. Reevaluation #3: 08/12/21 18:33 Patient reevaluated and is improved. However still has headache. I did order a dose of dexamethasone. We'll have the patient follow-up with her neurologist. Medical Decision Making - Medical Decision Making Patient presents to the emergency department with what appears to be her typical migraine with ocular involvement. Patient has several neurologists at [facility]. Patient was initially given morphine, Zofran, and Benadryl. Patient had minimal relief. Patient has multiple ALLERGIES to both prophylactic and abort roseanne medications for headaches. I did discuss this case with my supervision physician who did not want the patient have any additional narcotic medication. Patient was found to be hypokalemic which she has had in the past. Patient states that they usually only give HER-2 or 3 days supplementation. Patient states she did follow up with her regular physician had progressive rechecked and it was normal. Patient is not on any chronic supplementation. Given the patient's multiple ALLERGIES and medication sensitivities are going to order magnesium which will also benefit her hypokalemia. Potassium supplementation. Going to try intramuscular Haldol. The case was discussed in detail with ED attending physician. Presentation, findings, treatment plan discussed in detail. Supervising physician is Dr. Wooten. - Lab Data Result diagrams: 08/12/21 16:32 08/12/21 16:32 Lab Results 08/12/21 08/12/21 Range/Units 16:32 16:32 WBC 11.5 H (3.8-10.6) k/uL RBC 4.56 (3.80-5.40) m/uL Hgb 14.5 (11.4-16.0) gm/dL Hct 44.3 (34.0-46.0) % MCV 97.3 (80.0-100.0) fL MCH 31.8 (25.0-35.0) pg MCHC 32.7 (31.0-37.0) g/dL RDW 14.1 (11.5-15.5) % Plt Count 369 (150-450) k/uL MPV 8.8 Neutrophils % 74 % Lymphocytes % 19 % Monocytes % 5 % Eosinophils % 1 % Basophils % 1 % Neutrophils # 8.5 H (1.3-7.7) k/uL Lymphocytes # 2.2 (1.0-4.8) k/uL Monocytes # 0.5 (0-1.0) k/uL Eosinophils # 0.1 (0-0.7) k/uL Basophils # 0.1 (0-0.2) k/uL ESR 10 (0-20) mm/hr Sodium 137 (137-145) mmol/L Potassium 2.8 L (3.5-5.1) mmol/L Chloride 94 L (98-107) mmol/L Carbon Dioxide 37 H (22-30) mmol/L Anion Gap 6 mmol/L BUN 3 L (7-17) mg/dL Creatinine 0.81 (0.52-1.04) mg/dL Est GFR (CKD-EPI)AfAm >90 (>60 ml/min/1.73 sqM) Est GFR (CKD-EPI)NonAf 86 (>60 ml/min/1.73 sqM) Glucose 116 H (74-99) mg/dL Calcium 8.6 (8.4-10.2) mg/dL Magnesium 1.7 (1.6-2.3) mg/dL Disposition Clinical Impression: Migraine headache, Hypokalemia Disposition: HOME SELF-CARE Condition: Stable Instructions (If sedation given, give patient instructions): Hypokalemia (ED), Acute Headache (ED) Additional Instructions: Call your neurologist in the morning for further guidance. Take the potassium supplementation as directed. Call your regular physician as well. She'll need to have her potassium rechec ked later this week. Follow-up with your regular physician as directed. Return to the ER immediately if any symptoms worsen, new symptoms arise, or any other problems develop. Prescriptions: Potassium Chloride ER [K-Dur 20] 20 meq PO DAILY 10 Days #10 tab Is patient prescribed a controlled substance at d/c from ED?: No Referrals: José Reece MD [Primary Care Provider] - 1-2 days Time of Disposition: 18:35
[2021-08-12 16:46] LABS: Basophils # (A) 0.1 k/uL (0-0.2); Basophils % (A) 1 %; Eosinophils # (A) 0.1 k/uL (0-0.7); Eosinophils % (A) 1 %; HCT 44.3 % (34.0-46.0); HGB 14.5 gm/dL (11.4-16.0); Lymphocytes # (A) 2.2 k/uL (1.0-4.8); Lymphocytes % (A) 19 %; MCH 31.8 pg (25.0-35.0); MCHC 32.7 g/dL (31.0-37.0); MCV 97.3 fL (80.0-100.0); Mean Platelet Volume 8.8; Monocytes # (A) 0.5 k/uL (0-1.0); Monocytes % (A) 5 %; Neutrophils # (A) 8.5 k/uL (1.3-7.7); Neutrophils % (A) 74 %; Platelet Count 369 k/uL (150-450); RBC 4.56 m/uL (3.80-5.40); RDW 14.1 % (11.5-15.5); WBC 11.5 k/uL (3.8-10.6)
[2021-08-12 16:56] LABS: Potassium 2.8 mmol/L (3.5-5.1)
[2021-08-12 16:57] LABS: African American GFR (CKD) >90 (>60 ml/min/1.73 sqM); Anion Gap 6 mmol/L; Blood Urea Nitrogen 3 mg/dL (7-17); Calcium 8.6 mg/dL (8.4-10.2); Carbon Dioxide 37 mmol/L (22-30); Chloride 94 mmol/L (98-107); Glucose 116 mg/dL (74-99); Magnesium 1.7 mg/dL (1.6-2.3); Non-African American GFR(CKD) 86 (>60 ml/min/1.73 sqM); Sodium 137 mmol/L (137-145)
[2021-08-12] MEDS ORDERED: POTASSIUM CHLORIDE ER 20 MEQ TAB.ER PO STA (17:18)
[2021-08-12] MEDS ORDERED: HALOPERIDOL LACTATE 5 MG/ML 1 ML VIAL IM STA (17:24)
[2021-08-12] MEDS: MAGNESIUM SULFATE-D5W PMX 1 GM in DEXTROSE/WATER 1 100ML.BAG IVPB SCH ×2 (17:40→19:01)
[2021-08-12 17:42] LABS: Erythrocyte Sedimentation Rate 10 mm/hr (0-20)
[2021-08-12] MEDS ORDERED: DEXAMETHASONE SOD PHOSPHATE 10 MG/ML 1 ML VIAL IVP STA (18:30)
[2021-08-12] MEDS ORDERED: ACETAMINOPHEN IV (For NPO) 1,000 MG in SALINE 100 100ML.BAG IVPB STA (18:36)
[2021-08-12 19:03] VITALS: BP 115/68; PULSE 78; RESP 18
== END 2021-08-12 19:03 | disposition home or self-care (01) ==
LOC: EC 13:32
DX: G43.909 Migraine, unspecified, not intractable, without status migrainosus (principal); E87.6 Hypokalemia; F17.200 Nicotine dependence, unspecified, uncomplicated; E78.5 Hyperlipidemia, unspecified; I10 Essential (primary) hypertension; Z79.899 Other long term (current) drug therapy; Z88.0 Allergy status to penicillin; Z88.1 Allergy status to other antibiotic agents; Z88.2 Allergy status to sulfonamides; Z88.5 Allergy status to narcotic agent; Z88.6 Allergy status to analgesic agent; Z88.8 Allergy status to other drugs, medicaments and biological substances; Z90.49 Acquired absence of other specified parts of digestive tract; Z91.040 Latex allergy status; Z91.02 Food additives allergy status
CPT/HCPCS: 36415; 80048; 85652; 83735; 85025; 99284; 96365; 96375; 96361; 96372; J2270; J1200; J1630; J2405; J3475

== ENCOUNTER 2021-08-16 10:24 | Emergency (ER) | payer OTHER ==
[2021-08-16 11:52] VITALS: BP 139/99; PULSE 95; RESP 18; TEMP 98.1
[2021-08-16] MEDS ORDERED: ONDANSETRON 4 MG/2 ML VIAL IVP STA (14:07)
[2021-08-16] MEDS ORDERED: diphenhydrAMINE 50 MG/ML 1 ML VIAL IVP STA (14:07)
[2021-08-16] MEDS ORDERED: HYDROmorphone 1 MG/ML 1 ML SYRINGE IVP STA (14:07)
[2021-08-16] MEDS ORDERED: SODIUM CHLORIDE 0.9% 1,000 ML IV STA (14:07)
--- NOTE | 2021-08-16 16:27 | ED ---
Headache HPI - General Chief Complaint: Headache Stated Complaint: Headache Time Seen by Provider: 08/16/21 14:02 Mode of arrival: wheelchair Limitations: no limitations - History of Present Illness Initial Comments: Patient is a 51-year-old female well-known to this ER presenting for a chief complaint of headache. Patient has a history of migraines and states this migraine feels consistent with her typical migraine attacks. She states it is unilateral, admits to photophobia, while obtaining the history the patient is wearing an eye mask for symptomatic relief. Patient currently follows with a neurologist, states that she was recently started on a new migraine medication which worked for one attack but has not worked since. She admits to nausea and vomiting. She denies fever, chills, neck pain or stiffness, weakness, numbness, tingling, vision or hearing changes, abdominal pain, hematemesis, hematochezia, melena, loss of consciousness, head injury, seizure. - Related Data Home Medications Medication Instructions Recorded Confirmed Galcanezumab-Gnlm [Emgality Pen] 120 mg SQ Q30D 04/28/20 07/20/21 amLODIPine [Norvasc] 5 mg PO HS 04/28/20 07/20/21 Omeprazole [PriLOSEC] 20 mg PO BID 12/15/20 07/20/21 Thiamine [Vitamin B-1] 100 mg PO HS 01/04/21 07/20/21 Atorvastatin [Lipitor] 40 mg PO HS 07/20/21 07/20/21 Cholecalciferol [Vitamin D3 (25 25 mcg PO HS 07/20/21 07/20/21 Mcg = 1000 Iu)] Cyanocobalamin (Vitamin B-12) 1,000 mcg PO HS 07/20/21 07/20/21 [Vitamin B-12] DULoxetine HCL [Cymbalta] 60 mg PO HS 07/20/21 07/20/21 buprenorphine HCL [Subutex] 1 mg SUBLINGUAL TID 07/20/21 07/20/21 Previous Rx's Medication Instructions Recorded HYDROcodone/APAP 7.5-325MG [[place] 1 tab PO TID PRN #12 tab 11/17/20 7.5-325] Lacosamide [Vimpat] 100 mg PO BID 7 Days #14 tab 01/16/21 Potassium Chloride ER [K-Dur 20] 20 meq PO DAILY 10 Days #10 tab 08/12/21 Allergies Allergy/AdvReac Type Severity Reaction Status Date / Time dihydroergotamine Allergy Unknown Unknown Verified 08/16/21 11:52 [From Migranal] buprenorphine Allergy Rash/Hives Verified 08/16/21 11:52 gabapentin [From Neurontin] Allergy Itching/Swe Verified 08/16/21 11:52 lling latex Allergy Anaphylaxis Verified 08/16/21 11:52 naproxen [From Naprosyn] Allergy Anaphylaxis Verified 08/16/21 11:52 Penicillins Allergy Anaphylaxis Verified 08/16/21 11:52 prednisone Allergy Swelling Verified 08/16/21 11:52 quetiapine fumarate Allergy Itching, Verified 08/16/21 11:52 [From Seroquel] leg cramps rofecoxib [From Vioxx] Allergy Itching, Verified 08/16/21 11:52 leg cramps terfenadine [From Seldane] Allergy Rash/Hives Verified 08/16/21 11:52 tramadol Allergy Nausea & Verified 08/16/21 11:52 Vomiting/LEG CRAMPS/HEART FLUTTERS calcium carbonate [From DHEA] AdvReac Chest Pain Verified 08/16/21 11:52 calcium phosphate,dibasic AdvReac Chest Pain Verified 08/16/21 11:52 [From DHEA] clindamycin AdvReac muscle Verified 08/16/21 11:52 cramps clonidine AdvReac fast Verified 08/16/21 11:52 heartbeat, migraine dextromethorphan HBr AdvReac face/neck Verified 08/16/21 11:52 [From NyQuil] flushing diazepam [From Valium] AdvReac Nausea & Verified 08/16/21 11:52 Vomiting divalproex sodium AdvReac Nausea & Verified 08/16/21 11:52 [From Depakote] Vomiting doxylamine [From NyQuil] AdvReac face "beet Verified 08/16/21 11:52 red", elevated temp. ibuprofen [From Motrin] AdvReac abdominal Verified 08/16/21 11:52 & muscle cramps indomethacin [From Indocin] AdvReac Abdominal Verified 08/16/21 11:52 Pain,N/V ketorolac tromethamine AdvReac "built up Verified 08/16/21 11:52 [From Toradol] in system", had to be given something to reverse lorazepam [From Ativan] AdvReac Nausea & Verified 08/16/21 11:52 Vomiting memantine [From Namenda] AdvReac Itching Verified 08/16/21 11:52 metoclopramide HCl AdvReac muscle Verified 08/16/21 11:52 [From Reglan] cramps nortriptyline [From Pamelor] AdvReac Chest Pain Verified 08/16/21 11:52 prasterone (DHEA) [From DHEA] AdvReac Chest Pain Verified 08/16/21 11:52 prochlorperazine AdvReac leg Verified 08/16/21 11:52 [From Compazine] cramping propranolol AdvReac Chest Pain Verified 08/16/21 11:52 pseudoephedrine HCl AdvReac face "beet Verified 08/16/21 11:52 [From NyQuil] red", elevated temp. quetiapine [From Seroquel] AdvReac leg Verified 08/16/21 11:52 cramping sumatriptan [From Imitrex] AdvReac migrane Verified 08/16/21 11:52 sumatriptan succinate AdvReac migrane Verified 08/16/21 11:52 [From Imitrex] topiramate [From Topamax] AdvReac "built up Verified 08/16/21 11:52 in system", had to be given something to reverse trazodone AdvReac "built up Verified 08/16/21 11:52 in system", had to be given something to reverse zolpidem tartrate AdvReac "Became Verified 08/16/21 11:52 [From Ambien] violent with no memory" zonisamide [From Zonegran] AdvReac inability Verified 08/16/21 11:52 to eat prosyn Allergy Itching Uncoded 08/16/21 11:52 artificial sweetener AdvReac SEVERE Uncoded 08/16/21 11:52 MIGRAINE HEADACHE Review of Systems ROS Statement: Those systems with pertinent positive or pertinent negative responses have been documented in the HPI. ROS Other: All systems not noted in ROS Statement are negative. Past Medical History Past Medical History: Hyperlipidemia, Hypertension, Seizure Disorder Additional Past Medical History / Comment(s): Migraines, viral meningitis x3 as a child, 1995, 2000, chronic back pain, nerve blocks 08/2016 and 12/2016. Last seizure 10/10/2020, "ABSENT SEIZURES. HX TACHYCARDIA, GBS/CIPD, PTSD. History of Any Multi-Drug Resistant Organisms: None Reported Past Surgical History: Appendectomy, Section, Cholecystectomy, Hernia Repair, Hysterectomy, Orthopedic Surgery, Tonsillectomy, Tubal Ligation Additional Past Surgical History / Comment(s): Hiatal Hernia, umbilical hernia repair, left rotator cuff repair, bilateral knee scopes, pain clinic procedures-occipital nerve block. abd exploratory sx(endometreosis), 3 abd scopes 1981, 1989, 1991), lumbar puncture. EGD. nerve biopsy, salvalry gland biospy Past Anesthesia/Blood Transfusion Reactions: No Reported Reaction Additional Past Anesthesia/Blood Transfusion Reaction / Comment(s): Claustrophobic Past Psychological History: Anxiety, Bipolar, Panic Disorder, PTSD Smoking Status: Current every day smoker Past Alcohol Use History: None Reported Past Drug Use History: None Reported - Past Family History Mother Family Medical History: Cancer, Dementia, Diabetes Mellitus, GERD/Reflux, Hyperlipidemia, Hypertension, Thyroid Disorder Additional Family Medical History / Comment(s): Quad CABG, cardiac stents, toes ampuated and left leg amputated Father History Unknown: Yes Family Medical History: No Reported History General Exam Limitations: no limitations General appearance: alert, in no apparent distress Head exam: Present: atraumatic, normocephalic, normal inspection Eye exam: Present: normal appearance, EOMI. Absent: scleral icterus Neck exam: Present: normal inspection. Absent: tenderness, meningismus Respiratory exam: Present: normal lung sounds bilaterally. Absent: respiratory distress, wheezes, rales, rhonchi, stridor Cardiovascular Exam: Present: regular rate, normal rhythm, normal heart sounds. Absent: systolic murmur, diastolic murmur, rubs, gallop, clicks Neurological exam: Present: alert, oriented X3, CN II-XII intact Expanded Patient oriented to: Present: person, place, time Speech: Present: fluid speech Cranial nerves: EOM's Intact: Normal, Tongue Deviation: Normal, Facial Sensation: Normal Eye Response: (4) open spontaneously Motor Response: (6) obeys commands Verbal Response: (5) oriented [place] Total: 15 Psychiatric exam: Present: normal affect, normal mood Skin exam: Present: warm, dry, intact, normal color. Absent: rash Course Vital Signs 08/16/21 11:48 Temperature 98.1 F Pulse Rate 95 Respiratory 18 Rate Blood Pressure 139/99 O2 Sat by Pulse 99 Oximetry Medical Decision Making - Medical Decision Making Patient is a 51-year-old female with a history of migraines presenting with chief complaint of headache. Patient states that this headache is consistent with her typical migraines. She admits to photophobia, nausea, vomiting. On examination she has no focal neurological deficits, extraocular motions are intact, GCS of 15. Patient was given Zofran, Benadryl, Dilaudid. Patient states that this was able to somewhat alleviate her symptoms. Patient was then requesting more Dilaudid and Ativan. I explained to the patient that I would not be able to fulfill this request today. I offered the patient Decadron which she declined. I encouraged the patient to utilize supportive treatment at home with [id number] pain medication, caffeine, hydration, and rest. Follow-up with PCP and neurologist as directed. Report back to ER with any worsening symptoms. Educated on return parameters and answered all questions. Patient conveyed verbal understanding and agreed to the plan. Disposition Clinical Impression: Migraine Disposition: HOME SELF-CARE Condition: Good Instructions (If sedation given, give patient instructions): Migraine Headache (ED) Additional Instructions: Follow up with primary care provider and neurologist as instructed. Report back to ER if any worsening symptoms. At home utilize [id number] pain medications, caffeine, heat or ice on the back of the neck for pain control. Stay well-hydrated. Is patient prescribed a controlled substance at d/c from ED?: No Referrals: José Reece MD [Primary Care Provider] - 1-2 days Time of Disposition: 16:41
[2021-08-16] MEDS ORDERED: DEXAMETHASONE SOD PHOSPHATE 10 MG/ML 1 ML VIAL IVP STA (16:38)
== END 2021-08-16 17:02 | disposition home or self-care (01) ==
LOC: EC 10:24
DX: G43.909 Migraine, unspecified, not intractable, without status migrainosus (principal); F17.200 Nicotine dependence, unspecified, uncomplicated; I10 Essential (primary) hypertension; E78.5 Hyperlipidemia, unspecified; Z88.8 Allergy status to other drugs, medicaments and biological substances; Z91.02 Food additives allergy status; Z88.2 Allergy status to sulfonamides; Z88.5 Allergy status to narcotic agent; Z88.6 Allergy status to analgesic agent; Z88.1 Allergy status to other antibiotic agents; Z88.0 Allergy status to penicillin; Z91.040 Latex allergy status; Z79.899 Other long term (current) drug therapy
CPT/HCPCS: 99283; 96374; 96375; 96361; J1200; J2405; J1170; J1642

== ENCOUNTER 2021-08-27 20:11 | Emergency (ER) | payer OTHER ==
[2021-08-27 21:19] VITALS: TEMP 98.4
[2021-08-27] MEDS ORDERED: diphenhydrAMINE 50 MG CAP PO STA (21:30)
[2021-08-27] MEDS ORDERED: ONDANSETRON ODT 4 MG TAB PO STA (21:31)
--- NOTE | 2021-08-27 21:32 | ED ---
Headache HPI - General Chief Complaint: Headache Stated Complaint: migraine, nausea Time Seen by Provider: 08/27/21 21:30 Source: RN notes reviewed, old records reviewed Mode of arrival: wheelchair Limitations: no limitations - History of Present Illness Initial Comments: This 51-year-old female to the emergency department for evaluation. Patient has headache. She presents often for headache here in the emergency department. His headache is severe migraine headache just like her normal migraine headaches. Patient has no trauma no fever. Mild nausea no vomiting. Headache is throbbing in nature with worse on sound and light MD Complaint: headache, "migraine" -: days(s) Onset Description: gradual Location: right, left, frontal, occipital Severity: severe Severity scale (1-10): 10 Quality: constant, similar to previous headaches Consistency: constant Improves With: nothing Worsens With: none Context: occurred at rest Associated Symptoms: nausea, photophobia, sensitivity to sound Other Symptoms: eye pain/redness Treatments Prior to Arrival: none - Related Data Home Medications Medication Instructions Recorded Confirmed Galcanezumab-Gnlm [Emgality Pen] 120 mg SQ Q30D 04/28/20 07/20/21 amLODIPine [Norvasc] 5 mg PO HS 04/28/20 07/20/21 Omeprazole [PriLOSEC] 20 mg PO BID 12/15/20 07/20/21 Thiamine [Vitamin B-1] 100 mg PO HS 01/04/21 07/20/21 Atorvastatin [Lipitor] 40 mg PO HS 07/20/21 07/20/21 Cholecalciferol [Vitamin D3 (25 25 mcg PO HS 07/20/21 07/20/21 Mcg = 1000 Iu)] Cyanocobalamin (Vitamin B-12) 1,000 mcg PO HS 07/20/21 07/20/21 [Vitamin B-12] DULoxetine HCL [Cymbalta] 60 mg PO HS 07/20/21 07/20/21 buprenorphine HCL [Subutex] 1 mg SUBLINGUAL TID 07/20/21 07/20/21 Previous Rx's Medication Instructions Recorded HYDROcodone/APAP 7.5-325MG [[place] 1 tab PO TID PRN #12 tab 11/17/20 7.5-325] Lacosamide [Vimpat] 100 mg PO BID 7 Days #14 tab 01/16/21 Potassium Chloride ER [K-Dur 20] 20 meq PO DAILY 10 Days #10 tab 08/12/21 Allergies Allergy/AdvReac Type Severity Reaction Status Date / Time dihydroergotamine Allergy Unknown Unknown Verified 08/27/21 21:19 [From Migranal] buprenorphine Allergy Rash/Hives Verified 08/27/21 21:19 gabapentin [From Neurontin] Allergy Itching/Swe Verified 08/27/21 21:19 lling latex Allergy Anaphylaxis Verified 08/27/21 21:19 naproxen [From Naprosyn] Allergy Anaphylaxis Verified 08/27/21 21:19 Penicillins Allergy Anaphylaxis Verified 08/27/21 21:19 prednisone Allergy Swelling Verified 08/27/21 21:19 quetiapine fumarate Allergy Itching, Verified 08/27/21 21:19 [From Seroquel] leg cramps rofecoxib [From Vioxx] Allergy Itching, Verified 08/27/21 21:19 leg cramps terfenadine [From Seldane] Allergy Rash/Hives Verified 08/27/21 21:19 tramadol Allergy Nausea & Verified 08/27/21 21:19 Vomiting/LEG CRAMPS/HEART FLUTTERS calcium carbonate [From DHEA] AdvReac Chest Pain Verified 08/27/21 21:19 calcium phosphate,dibasic AdvReac Chest Pain Verified 08/27/21 21:19 [From DHEA] clindamycin AdvReac muscle Verified 08/27/21 21:19 cramps clonidine AdvReac fast Verified 08/27/21 21:19 heartbeat, migraine dextromethorphan HBr AdvReac face/neck Verified 08/27/21 21:19 [From NyQuil] flushing diazepam [From Valium] AdvReac Nausea & Verified 08/27/21 21:19 Vomiting divalproex sodium AdvReac Nausea & Verified 08/27/21 21:19 [From Depakote] Vomiting doxylamine [From NyQuil] AdvReac face "beet Verified 08/27/21 21:19 red", elevated temp. ibuprofen [From Motrin] AdvReac abdominal Verified 08/27/21 21:19 & muscle cramps indomethacin [From Indocin] AdvReac Abdominal Verified 08/27/21 21:19 Pain,N/V ketorolac tromethamine AdvReac "built up Verified 08/27/21 21:19 [From Toradol] in system", had to be given something to reverse lorazepam [From Ativan] AdvReac Nausea & Verified 08/27/21 21:19 Vomiting memantine [From Namenda] AdvReac Itching Verified 08/27/21 21:19 metoclopramide HCl AdvReac muscle Verified 08/27/21 21:19 [From Reglan] cramps nortriptyline [From Pamelor] AdvReac Chest Pain Verified 08/27/21 21:19 prasterone (DHEA) [From DHEA] AdvReac Chest Pain Verified 08/27/21 21:19 prochlorperazine AdvReac leg Verified 08/27/21 21:19 [From Compazine] cramping propranolol AdvReac Chest Pain Verified 08/27/21 21:19 pseudoephedrine HCl AdvReac face "beet Verified 08/27/21 21:19 [From NyQuil] red", elevated temp. quetiapine [From Seroquel] AdvReac leg Verified 08/27/21 21:19 cramping sumatriptan [From Imitrex] AdvReac migrane Verified 08/27/21 21:19 sumatriptan succinate AdvReac migrane Verified 08/27/21 21:19 [From Imitrex] topiramate [From Topamax] AdvReac "built up Verified 08/27/21 21:19 in system", had to be given something to reverse trazodone AdvReac "built up Verified 08/27/21 21:19 in system", had to be given something to reverse zolpidem tartrate AdvReac "Became Verified 08/27/21 21:19 [From Ambien] violent with no memory" zonisamide [From Zonegran] AdvReac inability Verified 08/27/21 21:19 to eat prosyn Allergy Itching Uncoded 08/27/21 21:19 artificial sweetener AdvReac SEVERE Uncoded 08/27/21 21:19 MIGRAINE HEADACHE Review of Systems ROS Statement: Those systems with pertinent positive or pertinent negative responses have been documented in the HPI. ROS Other: All systems not noted in ROS Statement are negative. Past Medical History Past Medical History: Hyperlipidemia, Hypertension, Seizure Disorder Additional Past Medical History / Comment(s): Migraines, viral meningitis x3 as a child, 1995, 2000, chronic back pain, nerve blocks 08/2016 and 12/2016. Last seizure 10/10/2020, "ABSENT SEIZURES. HX TACHYCARDIA, GBS/CIPD, PTSD. History of Any Multi-Drug Resistant Organisms: None Reported Past Surgical History: Appendectomy, Section, Cholecystectomy, Hernia Repair, Hysterectomy, Orthopedic Surgery, Tonsillectomy, Tubal Ligation Additional Past Surgical History / Comment(s): Hiatal Hernia, umbilical hernia repair, left rotator cuff repair, bilateral knee scopes, pain clinic procedures- occipital nerve block. abd exploratory sx(endometreosis), 3 abd scopes 1981, 1989, 1991), lumbar puncture. EGD. nerve biopsy, salvalry gland biospy Past Anesthesia/Blood Transfusion Reactions: No Reported Reaction Additional Past Anesthesia/Blood Transfusion Reaction / Comment(s): Claustrophobic Past Psychological History: Anxiety, Bipolar, Panic Disorder, PTSD Smoking Status: Current every day smoker Past Alcohol Use History: None Reported Past Drug Use History: None Reported - Past Family History Mother Family Medical History: Cancer, Dementia, Diabetes Mellitus, GERD/Reflux, Hyperlipidemia, Hypertension, Thyroid Disorder Additional Family Medical History / Comment(s): Quad CABG, cardiac stents, toes ampuated and left leg amputated Father History Unknown: Yes Family Medical History: No Reported History General Exam General appearance: alert, in no apparent distress Head exam: Present: atraumatic, normocephalic, normal inspection Eye exam: Present: normal appearance, PERRL, EOMI. Absent: scleral icterus, conjunctival injection, periorbital swelling ENT exam: Present: normal exam, mucous membranes moist Neck exam: Present: normal inspection. Absent: tenderness, meningismus, lymphadenopathy Respiratory exam: Present: normal lung sounds bilaterally. Absent: respiratory distress, wheezes, rales, rhonchi, stridor Cardiovascular Exam: Present: regular rate, normal rhythm, normal heart sounds. Absent: systolic murmur, diastolic murmur, rubs, gallop, clicks GI/Abdominal exam: Present: soft, normal bowel sounds. Absent: distended, tenderness, guarding, rebound, rigid Extremities exam: Present: normal inspection, full ROM, normal capillary refill. Absent: tenderness, pedal edema, joint swelling, calf tenderness Back exam: Present: normal inspection Neurological exam: Present: alert, oriented X3, CN II-XII intact Psychiatric exam: Present: normal affect, normal mood Skin exam: Present: warm, dry, intact, normal color. Absent: rash Course Vital Signs 08/27/21 21:17 Temperature 98.4 F Pulse Rate 99 Respiratory 19 Rate Blood Pressure 130/92 O2 Sat by Pulse 98 Oximetry - Reevaluation(s) Reevaluation #1: 08/27/21 22:13 Medical record is reviewed Reevaluation #2: 08/27/21 22:13 Patient's headache is currently improved Reevaluation #3: 08/27/21 22:13 Patient informed results need for discharge Medical Decision Making - Medical Decision Making 31 female to the emergency department was severe headache chronic migraines. Headache improved here in the ER she will be discharged home Disposition Clinical Impression: Tension headache, Intractable headache, Headache, Migraine Disposition: HOME SELF-CARE Condition: Good Instructions (If sedation given, give patient instructions): Acute Headache (ED) Is patient prescribed a controlled substance at d/c from ED?: No Referrals: José Reece MD [Primary Care Provider] - 1-2 days
[2021-08-27] MEDS ORDERED: ONDANSETRON 4 MG TAB PO STA (22:06)
[2021-08-27] MEDS: HYDROmorphone 1 MG/ML 1 ML SYRINGE IM STA ×2 (22:13→22:15)
[2021-08-27] MEDS ORDERED: LORazepam 1 MG TAB PO STA (22:50)
[2021-08-27 23:00] VITALS: BP 118/87; PULSE 95; RESP 18
== END 2021-08-27 23:00 | disposition home or self-care (01) ==
LOC: EC 20:11
DX: G43.919 Migraine, unspecified, intractable, without status migrainosus (principal); G44.201 Tension-type headache, unspecified, intractable; I10 Essential (primary) hypertension; E78.5 Hyperlipidemia, unspecified; F31.9 Bipolar disorder, unspecified; F41.9 Anxiety disorder, unspecified; G40.909 Epilepsy, unspecified, not intractable, without status epilepticus; F17.200 Nicotine dependence, unspecified, uncomplicated; Z88.5 Allergy status to narcotic agent; Z88.2 Allergy status to sulfonamides; Z88.6 Allergy status to analgesic agent; Z79.899 Other long term (current) drug therapy
CPT/HCPCS: 99283; 96372 ×2; J1170; J1790

== ENCOUNTER 2021-09-14 21:30 | Emergency (ER) | payer OTHER ==
[2021-09-14 22:22] VITALS: BP 133/90; PULSE 106; RESP 18; TEMP 99.3
[2021-09-14] MEDS ORDERED: BUTA/APAP/CAF/COD 50-325-40-30 CAP PO STA (23:41)
--- NOTE | 2021-09-14 23:58 | ED ---
Headache HPI - General Chief Complaint: Headache Stated Complaint: Headache Time Seen by Provider: 09/14/21 23:14 Source: RN notes reviewed Mode of arrival: wheelchair - History of Present Illness Initial Comments: This is a 51-year-old female who is a frequent visitor to our ER for recurrent migraine headaches. She comes in complaining of a migraine headache which she states is been present for 5 days. Patient has tried her abortive medication which is not worse. Patient states that she is recently moved from her prophylactic medication by her neurologist. Patient has a new medication she is supposed to start next Friday. no fever or chills, no changes in vision or hearing, no sore throat or difficulty with speech, no neck pain, no chest pain or shortness of breath, no abdominal pain, no nausea or vomiting, no changes in urination or bowel movements, no numbness or tingling, no extremity pain, no skin rashes or lesions. MD Complaint: headache Onset/Timin -: days(s) Onset Description: gradual Location: diffuse - Related Data Home Medications Medication Instructions Recorded Confirmed amLODIPine [Norvasc] 5 mg PO HS 04/28/20 09/14/21 Omeprazole [PriLOSEC] 20 mg PO BID 12/15/20 09/14/21 Thiamine [Vitamin B-1] 100 mg PO HS 01/04/21 09/14/21 Atorvastatin [Lipitor] 40 mg PO HS 07/20/21 09/14/21 DULoxetine HCL [Cymbalta] 60 mg PO HS 07/20/21 09/14/21 buprenorphine HCL [Subutex] 1 mg SUBLINGUAL TID 07/20/21 09/14/21 Previous Rx's Medication Instructions Recorded HYDROcodone/APAP 7.5-325MG [[place] 1 tab PO TID PRN #12 tab 11/17/20 7.5-325] Lacosamide [Vimpat] 100 mg PO BID 7 Days #14 tab 01/16/21 Allergies Allergy/AdvReac Type Severity Reaction Status Date / Time dihydroergotamine Allergy Unknown Unknown Verified 09/14/21 22:22 [From Migranal] buprenorphine Allergy Rash/Hives Verified 09/14/21 22:22 gabapentin [From Neurontin] Allergy Itching/Swe Verified 09/14/21 22:22 lling latex Allergy Anaphylaxis Verified 09/14/21 22:22 naproxen [From Naprosyn] Allergy Anaphylaxis Verified 09/14/21 22:22 Penicillins Allergy Anaphylaxis Verified 09/14/21 22:22 prednisone Allergy Swelling Verified 09/14/21 22:22 quetiapine fumarate Allergy Itching, Verified 09/14/21 22:22 [From Seroquel] leg cramps rofecoxib [From Vioxx] Allergy Itching, Verified 09/14/21 22:22 leg cramps terfenadine [From Seldane] Allergy Rash/Hives Verified 09/14/21 22:22 tramadol Allergy Nausea & Verified 09/14/21 22:22 Vomiting/LEG CRAMPS/HEART FLUTTERS calcium carbonate [From DHEA] AdvReac Chest Pain Verified 09/14/21 22:22 calcium phosphate,dibasic AdvReac Chest Pain Verified 09/14/21 22:22 [From DHEA] clindamycin AdvReac muscle Verified 09/14/21 22:22 cramps clonidine AdvReac fast Verified 09/14/21 22:22 heartbeat, migraine dextromethorphan HBr AdvReac face/neck Verified 09/14/21 22:22 [From NyQuil] flushing diazepam [From Valium] AdvReac Nausea & Verified 09/14/21 22:22 Vomiting divalproex sodium AdvReac Nausea & Verified 09/14/21 22:22 [From Depakote] Vomiting doxylamine [From NyQuil] AdvReac face "beet Verified 09/14/21 22:22 red", elevated temp. ibuprofen [From Motrin] AdvReac abdominal Verified 09/14/21 22:22 & muscle cramps indomethacin [From Indocin] AdvReac Abdominal Verified 09/14/21 22:22 Pain,N/V ketorolac tromethamine AdvReac "built up Verified 09/14/21 22:22 [From Toradol] in system", had to be given something to reverse lorazepam [From Ativan] AdvReac Nausea & Verified 09/14/21 22:22 Vomiting memantine [From Namenda] AdvReac Itching Verified 09/14/21 22:22 metoclopramide HCl AdvReac muscle Verified 09/14/21 22:22 [From Reglan] cramps nortriptyline [From Pamelor] AdvReac Chest Pain Verified 09/14/21 22:22 prasterone (DHEA) [From DHEA] AdvReac Chest Pain Verified 09/14/21 22:22 prochlorperazine AdvReac leg Verified 09/14/21 22:22 [From Compazine] cramping propranolol AdvReac Chest Pain Verified 09/14/21 22:22 pseudoephedrine HCl AdvReac face "beet Verified 09/14/21 22:22 [From NyQuil] red", elevated temp. quetiapine [From Seroquel] AdvReac leg Verified 09/14/21 22:22 cramping sumatriptan [From Imitrex] AdvReac migrane Verified 09/14/21 22:22 sumatriptan succinate AdvReac migrane Verified 09/14/21 22:22 [From Imitrex] topiramate [From Topamax] AdvReac "built up Verified 09/14/21 22:22 in system", had to be given something to reverse trazodone AdvReac "built up Verified 09/14/21 22:22 in system", had to be given something to reverse zolpidem tartrate AdvReac "Became Verified 09/14/21 22:22 [From Ambien] violent with no memory" zonisamide [From Zonegran] AdvReac inability Verified 09/14/21 22:22 to eat prosyn Allergy Itching Uncoded 09/14/21 22:22 artificial sweetener AdvReac SEVERE Uncoded 09/14/21 22:22 MIGRAINE HEADACHE Review of Systems ROS Statement: Those systems with pertinent positive or pertinent negative responses have been documented in the HPI. ROS Other: All systems not noted in ROS Statement are negative. Past Medical History Past Medical History: Hyperlipidemia, Hypertension, Seizure Disorder Additional Past Medical History / Comment(s): Migraines, viral meningitis x3 as a child, 1995, 2000, chronic back pain, nerve blocks 08/2016 and 12/2016. Last seizure 10/10/2020, "ABSENT SEIZURES. HX TACHYCARDIA, GBS/CIPD, PTSD. History of Any Multi-Drug Resistant Organisms: None Reported Past Surgical History: Appendectomy, Section, Cholecystectomy, Hernia Repair, Hysterectomy, Orthopedic Surgery, Tonsillectomy, Tubal Ligation Additional Past Surgical History / Comment(s): Hiatal Hernia, umbilical hernia repair, left rotator cuff repair, bilateral knee scopes, pain clinic procedures- occipital nerve block. abd exploratory sx(endometreosis), 3 abd scopes 1981, 1989, 1991), lumbar puncture. EGD. nerve biopsy, salvalry gland biospy Past Anesthesia/Blood Transfusion Reactions: No Reported Reaction Additional Past Anesthesia/Blood Transfusion Reaction / Comment(s): Claustrophobic Past Psychological History: Anxiety, Bipolar, Panic Disorder, PTSD Smoking Status: Current every day smoker Past Alcohol Use History: None Reported Past Drug Use History: None Reported - Past Family History Mother Family Medical History: Cancer, Dementia, Diabetes Mellitus, GERD/Reflux, Hyperlipidemia, Hypertension, Thyroid Disorder Additional Family Medical History / Comment(s): Quad CABG, cardiac stents, toes ampuated and left leg amputated Father History Unknown: Yes Family Medical History: No Reported History General Exam - General Exam Comments Initial Comments: Patient does not appear to be ill or toxic. Cranial nerves II through XII are intact. No focal neurologic deficits. Alert and oriented 4. General appearance: alert, in distress Head exam: Present: atraumatic, normocephalic, normal inspection Eye exam: Present: normal appearance, PERRL, EOMI. Absent: scleral icterus, conjunctival injection, periorbital swelling ENT exam: Present: normal exam, mucous membranes moist Neck exam: Present: normal inspection, full ROM. Absent: tenderness, meningismus, lymphadenopathy Respiratory exam: Present: normal lung sounds bilaterally. Absent: respiratory distress, wheezes, rales, rhonchi, stridor, chest wall tenderness, accessory muscle use, decreased breath sounds, prolonged expiratory Cardiovascular Exam: Present: regular rate, normal rhythm, normal heart sounds. Absent: systolic murmur, diastolic murmur, rubs, gallop, clicks GI/Abdominal exam: Present: soft, normal bowel sounds. Absent: distended, tenderness, guarding, rebound, rigid Extremities exam: Present: normal inspection, full ROM, normal capillary refill. Absent: tenderness, pedal edema, joint swelling, calf tenderness Back exam: Present: normal inspection Neurological exam: Present: alert, oriented X3, CN II-XII intact Psychiatric exam: Present: normal affect, normal mood Skin exam: Present: warm, dry, intact, normal color. Absent: rash Course Vital Signs 06/10/22 22:18 Temperature 99.3 F Pulse Rate 106 H Respiratory 18 Rate Blood Pressure 133/90 O2 Sat by Pulse 98 Oximetry - Reevaluation(s) Reevaluation #1: 09/15/21 0045 Medical record is reviewed Symptoms are improved here in the emergency department Patient is informed of results and questions answered Patient in no distress Disposition Clinical Impression: Migraine headache Disposition: HOME SELF-CARE Condition: Stable Instructions (If sedation given, give patient instructions): Acute Headache (ED) Additional Instructions: Follow-up with your regular physician as directed. Return to the ER immediately if any symptoms worsen, new symptoms arise, or any other problems develop. Is patient prescribed a controlled substance at d/c from ED?: No Referrals: José Reece MD [Primary Care Provider] - 1-2 days Time of Disposition: 00:45
== END 2021-09-15 00:51 | disposition home or self-care (01) ==
LOC: EC 21:30
DX: G43.909 Migraine, unspecified, not intractable, without status migrainosus (principal); F17.200 Nicotine dependence, unspecified, uncomplicated; I10 Essential (primary) hypertension; E78.5 Hyperlipidemia, unspecified; Z88.8 Allergy status to other drugs, medicaments and biological substances; Z91.02 Food additives allergy status; Z88.2 Allergy status to sulfonamides; Z88.6 Allergy status to analgesic agent; Z88.1 Allergy status to other antibiotic agents; Z88.5 Allergy status to narcotic agent; Z88.0 Allergy status to penicillin; Z91.040 Latex allergy status; Z79.899 Other long term (current) drug therapy
CPT/HCPCS: 99283

== ENCOUNTER 2021-10-15 12:30 | Emergency (ER) | payer OTHER ==
[2021-10-15 12:53] VITALS: RESP 18
[2021-10-15] MEDS ORDERED: ONDANSETRON 4 MG/2 ML VIAL IVP STA (14:32)
[2021-10-15] MEDS ORDERED: diphenhydrAMINE 50 MG/ML 1 ML VIAL IVP STA (14:32)
[2021-10-15] MEDS ORDERED: SODIUM CHLORIDE 0.9% 2,000 ML IV STA (14:32)
[2021-10-15] MEDS ORDERED: HYDROmorphone 0.5 MG/0.5 ML SYRINGE IVP STA ×2 (14:32→15:39)
[2021-10-15] MEDS ORDERED: DEXAMETHASONE SOD PHOSPHATE 10 MG/ML 1 ML VIAL IV STA (14:33)
--- NOTE | 2021-10-15 15:58 | ED ---
Headache HPI - General Chief Complaint: Headache Stated Complaint: Headache,Nausea,Vomiting Time Seen by Provider: 10/15/21 14:09 Mode of arrival: ambulatory Limitations: no limitations - History of Present Illness Initial Comments: Patient is a 51-year-old female who is very known to our emergency department for recurrent migraines who presents for treatment of migraine. Patient states the migraine started 2 days ago, associated photosensitivity, nausea, and vomiting. Patient states this migraine feels similar to her previous migraines. Patient states she took her abortive medication without relief. Denies fever, chills, upper respiratory symptoms, visual changes, and other concerns. - Related Data Home Medications Medication Instructions Recorded Confirmed amLODIPine [Norvasc] 5 mg PO HS 04/28/20 09/14/21 Omeprazole [PriLOSEC] 20 mg PO BID 12/15/20 09/14/21 Thiamine [Vitamin B-1] 100 mg PO HS 01/04/21 09/14/21 Atorvastatin [Lipitor] 40 mg PO HS 07/20/21 09/14/21 DULoxetine HCL [Cymbalta] 60 mg PO HS 07/20/21 09/14/21 buprenorphine HCL [Subutex] 1 mg SUBLINGUAL TID 07/20/21 09/14/21 Previous Rx's Medication Instructions Recorded HYDROcodone/APAP 7.5-325MG [[place] 1 tab PO TID PRN #12 tab 11/17/20 7.5-325] Lacosamide [Vimpat] 100 mg PO BID 7 Days #14 tab 01/16/21 Allergies Allergy/AdvReac Type Severity Reaction Status Date / Time dihydroergotamine Allergy Unknown Unknown Verified 10/15/21 12:53 [From Migranal] buprenorphine Allergy Rash/Hives Verified 10/15/21 12:53 gabapentin [From Neurontin] Allergy Itching/Swe Verified 10/15/21 12:53 lling latex Allergy Anaphylaxis Verified 10/15/21 12:53 naproxen [From Naprosyn] Allergy Anaphylaxis Verified 10/15/21 12:53 Penicillins Allergy Anaphylaxis Verified 10/15/21 12:53 prednisone Allergy Swelling Verified 10/15/21 12:53 quetiapine fumarate Allergy Itching, Verified 10/15/21 12:53 [From Seroquel] leg cramps rofecoxib [From Vioxx] Allergy Itching, Verified 10/15/21 12:53 leg cramps terfenadine [From Seldane] Allergy Rash/Hives Verified 10/15/21 12:53 tramadol Allergy Nausea & Verified 10/15/21 12:53 Vomiting/LEG CRAMPS/HEART FLUTTERS calcium carbonate [From DHEA] AdvReac Chest Pain Verified 10/15/21 12:53 calcium phosphate,dibasic AdvReac Chest Pain Verified 10/15/21 12:53 [From DHEA] clindamycin AdvReac muscle Verified 10/15/21 12:53 cramps clonidine AdvReac fast Verified 10/15/21 12:53 heartbeat, migraine dextromethorphan HBr AdvReac face/neck Verified 10/15/21 12:53 [From NyQuil] flushing diazepam [From Valium] AdvReac Nausea & Verified 10/15/21 12:53 Vomiting divalproex sodium AdvReac Nausea & Verified 10/15/21 12:53 [From Depakote] Vomiting doxylamine [From NyQuil] AdvReac face "beet Verified 10/15/21 12:53 red", elevated temp. ibuprofen [From Motrin] AdvReac abdominal Verified 10/15/21 12:53 & muscle cramps indomethacin [From Indocin] AdvReac Abdominal Verified 10/15/21 12:53 Pain,N/V ketorolac tromethamine AdvReac "built up Verified 10/15/21 12:53 [From Toradol] in system", had to be given something to reverse lorazepam [From Ativan] AdvReac Nausea & Verified 10/15/21 12:53 Vomiting memantine [From Namenda] AdvReac Itching Verified 10/15/21 12:53 metoclopramide HCl AdvReac muscle Verified 10/15/21 12:53 [From Reglan] cramps nortriptyline [From Pamelor] AdvReac Chest Pain Verified 10/15/21 12:53 prasterone (DHEA) [From DHEA] AdvReac Chest Pain Verified 10/15/21 12:53 prochlorperazine AdvReac leg Verified 10/15/21 12:53 [From Compazine] cramping propranolol AdvReac Chest Pain Verified 10/15/21 12:53 pseudoephedrine HCl AdvReac face "beet Verified 10/15/21 12:53 [From NyQuil] red", elevated temp. quetiapine [From Seroquel] AdvReac leg Verified 10/15/21 12:53 cramping sumatriptan [From Imitrex] AdvReac migrane Verified 10/15/21 12:53 sumatriptan succinate AdvReac migrane Verified 10/15/21 12:53 [From Imitrex] topiramate [From Topamax] AdvReac "built up Verified 10/15/21 12:53 in system", had to be given something to reverse trazodone AdvReac "built up Verified 10/15/21 12:53 in system", had to be given something to reverse zolpidem tartrate AdvReac "Became Verified 10/15/21 12:53 [From Ambien] violent with no memory" zonisamide [From Zonegran] AdvReac inability Verified 10/15/21 12:53 to eat prosyn Allergy Itching Uncoded 10/15/21 12:53 artificial sweetener AdvReac SEVERE Uncoded 10/15/21 12:53 MIGRAINE HEADACHE Review of Systems ROS Statement: Those systems with pertinent positive or pertinent negative responses have been documented in the HPI. ROS Other: All systems not noted in ROS Statement are negative. Past Medical History Past Medical History: Hyperlipidemia, Hypertension, Seizure Disorder Additional Past Medical History / Comment(s): Migraines, viral meningitis x3 as a child, 1995, 2000, chronic back pain, nerve blocks 08/2016 and 12/2016. Last seizure 10/10/2020, "ABSENT SEIZURES. HX TACHYCARDIA, GBS/CIPD, PTSD. History of Any Multi-Drug Resistant Organisms: None Reported Past Surgical History: Appendectomy, Section, Cholecystectomy, Hernia Repair, Hysterectomy, Orthopedic Surgery, Tonsillectomy, Tubal Ligation Additional Past Surgical History / Comment(s): Hiatal Hernia, umbilical hernia repair, left rotator cuff repair, bilateral knee scopes, pain clinic procedures-occipital nerve block. abd exploratory sx(endometreosis), 3 abd scopes 1981, 1989, 1991), lumbar puncture. EGD. nerve biopsy, salvalry gland biospy Past Anesthesia/Blood Transfusion Reactions: No Reported Reaction Additional Past Anesthesia/Blood Transfusion Reaction / Comment(s): Claustrophobic Past Psychological History: Anxiety, Bipolar, Panic Disorder, PTSD Smoking Status: Current every day smoker Past Alcohol Use History: None Reported Past Drug Use History: None Reported - Past Family History Mother Family Medical History: Cancer, Dementia, Diabetes Mellitus, GERD/Reflux, Hyperlipidemia, Hypertension, Thyroid Disorder Additional Family Medical History / Comment(s): Quad CABG, cardiac stents, toes ampuated and left leg amputated Father History Unknown: Yes Family Medical History: No Reported History General Exam Limitations: no limitations General appearance: alert, in no apparent distress Head exam: Present: atraumatic, normocephalic, normal inspection Neck exam: Present: normal inspection, full ROM. Absent: tenderness Respiratory exam: Present: normal lung sounds bilaterally. Absent: respiratory distress, wheezes, rales, rhonchi, stridor Cardiovascular Exam: Present: regular rate, normal rhythm, normal heart sounds. Absent: systolic murmur, diastolic murmur, rubs, gallop, clicks Neurological exam: Present: alert, oriented X3, CN II-XII intact Psychiatric exam: Present: normal affect, normal mood Skin exam: Present: warm, dry, intact, normal color. Absent: rash Course Vital Signs 10/15/21 10/15/21 12:50 16:07 Temperature 97.7 F 98.7 F Pulse Rate 93 84 Respiratory 18 18 Rate Blood Pressure 139/100 143/93 O2 Sat by Pulse 95 99 Oximetry Medical Decision Making - Medical Decision Making This is a 51-year-old female presents for treatment of migraine. Thorough history and examination were performed. Patient has several allergies to medications therefore I was unable to give her Toradol or Decadron. Patient given fluid bolus, Zofran, Benadryl, and Dilaudid. Reevaluation patient reports minimal improvement in symptoms. I then gave her another dose of Dilaudid. Patient requested to leave shortly after despite fluid bolus still running. Patient counseled that she has been to the emergency department several times for migraine where she received narcotics and she will need to follow up with her neurologist for better management of these symptoms. Return parameters discussed. Patient verbalizes understanding and is agreeable to this plan. Dr. Duffy is my attending. Disposition Clinical Impression: Migraine Disposition: HOME SELF-CARE Condition: Good Instructions (If sedation given, give patient instructions): Migraine Headache (ED) Additional Instructions: Increase fluid intake as tolerated. Follow-up with neurologist and primary care provider in one to 2 days. Return to the emergency department if you experience new, concerning, or worsening symptoms. Is patient prescribed a controlled substance at d/c from ED?: No Referrals: José Reece MD [Primary Care Provider] - 1-2 days Time of Disposition: 15:58
[2021-10-15 16:08] VITALS: BP 143/93; PULSE 84; TEMP 98.7
== END 2021-10-15 16:15 | disposition home or self-care (01) ==
LOC: EC 12:30
DX: G43.109 Migraine with aura, not intractable, without status migrainosus (principal); E78.5 Hyperlipidemia, unspecified; I10 Essential (primary) hypertension; F17.200 Nicotine dependence, unspecified, uncomplicated; E11.9 Type 2 diabetes mellitus without complications; K21.9 Gastro-esophageal reflux disease without esophagitis; Z79.83 Long term (current) use of bisphosphonates; E07.9 Disorder of thyroid, unspecified; Z79.899 Other long term (current) drug therapy; Z91.040 Latex allergy status; Z88.0 Allergy status to penicillin; Z88.8 Allergy status to other drugs, medicaments and biological substances; Z88.5 Allergy status to narcotic agent; Z88.1 Allergy status to other antibiotic agents; Z91.048 Other nonmedicinal substance allergy status
CPT/HCPCS: 99284; 96374; 96375; 96361; 96376; J1200; J2405; J1642; J1170

== ENCOUNTER 2021-10-19 20:36 | Emergency (ER) | payer OTHER ==
[2021-10-19 20:47] VITALS: TEMP 98.8
--- NOTE | 2021-10-19 22:13 | ED ---
Headache HPI - General Chief Complaint: Headache Stated Complaint: Migraine/Vomiting/Seizure Time Seen by Provider: 10/19/21 22:09 Source: RN notes reviewed, old records reviewed Mode of arrival: ambulatory Limitations: no limitations - History of Present Illness Initial Comments: This is a 51-year-old female to the emergency room for evaluation. Patient presents today for evaluation of headache. Patient has history of headaches. Patient has history of seizures as well, states she did have one seizure today. Positive nausea no current active vomiting. Persistent headache just like her normal migraines. Patient states she can't get comfortable at home despite abortive medication which she is prescribed MD Complaint: headache -: unknown Onset Description: gradual, at rest Location: right, left, frontal, temporal Severity: severe Severity scale (1-10): 10 Quality: aching, throbbing, pulsatile Consistency: constant Improves With: nothing Worsens With: none Context: other (Patient has history of seizures and also states she has seizure today) Associated Symptoms: nausea, vomiting Treatments Prior to Arrival: none - Related Data Home Medications Medication Instructions Recorded Confirmed amLODIPine [Norvasc] 5 mg PO HS 04/28/20 09/14/21 Omeprazole [PriLOSEC] 20 mg PO BID 12/15/20 09/14/21 Thiamine [Vitamin B-1] 100 mg PO HS 01/04/21 09/14/21 Atorvastatin [Lipitor] 40 mg PO HS 07/20/21 09/14/21 DULoxetine HCL [Cymbalta] 60 mg PO HS 07/20/21 09/14/21 buprenorphine HCL [Subutex] 1 mg SUBLINGUAL TID 07/20/21 09/14/21 Previous Rx's Medication Instructions Recorded HYDROcodone/APAP 7.5-325MG [[place] 1 tab PO TID PRN #12 tab 11/17/20 7.5-325] Lacosamide [Vimpat] 100 mg PO BID 7 Days #14 tab 01/16/21 Allergies Allergy/AdvReac Type Severity Reaction Status Date / Time dihydroergotamine Allergy Unknown Unknown Verified 10/19/21 20:48 [From Migranal] buprenorphine Allergy Rash/Hives Verified 10/19/21 20:48 gabapentin [From Neurontin] Allergy Itching/Swe Verified 10/19/21 20:48 lling latex Allergy Anaphylaxis Verified 10/19/21 20:48 naproxen [From Naprosyn] Allergy Anaphylaxis Verified 10/19/21 20:48 Penicillins Allergy Anaphylaxis Verified 10/19/21 20:48 prednisone Allergy Swelling Verified 10/19/21 20:48 quetiapine fumarate Allergy Itching, Verified 10/19/21 20:48 [From Seroquel] leg cramps rofecoxib [From Vioxx] Allergy Itching, Verified 10/19/21 20:48 leg cramps terfenadine [From Seldane] Allergy Rash/Hives Verified 10/19/21 20:48 tramadol Allergy Nausea & Verified 10/19/21 20:48 Vomiting/LEG CRAMPS/HEART FLUTTERS calcium carbonate [From DHEA] AdvReac Chest Pain Verified 10/19/21 20:48 calcium phosphate,dibasic AdvReac Chest Pain Verified 10/19/21 20:48 [From DHEA] clindamycin AdvReac muscle Verified 10/19/21 20:48 cramps clonidine AdvReac fast Verified 10/19/21 20:48 heartbeat, migraine dextromethorphan HBr AdvReac face/neck Verified 10/19/21 20:48 [From NyQuil] flushing diazepam [From Valium] AdvReac Nausea & Verified 10/19/21 20:48 Vomiting divalproex sodium AdvReac Nausea & Verified 10/19/21 20:48 [From Depakote] Vomiting doxylamine [From NyQuil] AdvReac face "beet Verified 10/19/21 20:48 red", elevated temp. ibuprofen [From Motrin] AdvReac abdominal Verified 10/19/21 20:48 & muscle cramps indomethacin [From Indocin] AdvReac Abdominal Verified 10/19/21 20:48 Pain,N/V ketorolac tromethamine AdvReac "built up Verified 10/19/21 20:48 [From Toradol] in system", had to be given something to reverse lorazepam [From Ativan] AdvReac Nausea & Verified 10/19/21 20:48 Vomiting memantine [From Namenda] AdvReac Itching Verified 10/19/21 20:48 metoclopramide HCl AdvReac muscle Verified 10/19/21 20:48 [From Reglan] cramps nortriptyline [From Pamelor] AdvReac Chest Pain Verified 10/19/21 20:48 prasterone (DHEA) [From DHEA] AdvReac Chest Pain Verified 10/19/21 20:48 prochlorperazine AdvReac leg Verified 10/19/21 20:48 [From Compazine] cramping propranolol AdvReac Chest Pain Verified 10/19/21 20:48 pseudoephedrine HCl AdvReac face "beet Verified 10/19/21 20:48 [From NyQuil] red", elevated temp. quetiapine [From Seroquel] AdvReac leg Verified 10/19/21 20:48 cramping sumatriptan [From Imitrex] AdvReac migrane Verified 10/19/21 20:48 sumatriptan succinate AdvReac migrane Verified 10/19/21 20:48 [From Imitrex] topiramate [From Topamax] AdvReac "built up Verified 10/19/21 20:48 in system", had to be given something to reverse trazodone AdvReac "built up Verified 10/19/21 20:48 in system", had to be given something to reverse zolpidem tartrate AdvReac "Became Verified 10/19/21 20:48 [From Ambien] violent with no memory" zonisamide [From Zonegran] AdvReac inability Verified 10/19/21 20:48 to eat prosyn Allergy Itching Uncoded 10/19/21 20:48 artificial sweetener AdvReac SEVERE Uncoded 10/19/21 20:48 MIGRAINE HEADACHE Review of Systems ROS Statement: Those systems with pertinent positive or pertinent negative responses have been documented in the HPI. ROS Other: All systems not noted in ROS Statement are negative. Past Medical History Past Medical History: Hyperlipidemia, Hypertension, Seizure Disorder Additional Past Medical History / Comment(s): Migraines, viral meningitis x3 as a child, 1995, 2000, chronic back pain, nerve blocks 08/2016 and 12/2016. Last seizure 10/10/2020, "ABSENT SEIZURES. HX TACHYCARDIA, GBS/CIPD, PTSD. History of Any Multi-Drug Resistant Organisms: None Reported Past Surgical History: Appendectomy, Section, Cholecystectomy, Hernia Repair, Hysterectomy, Orthopedic Surgery, Tonsillectomy, Tubal Ligation Additional Past Surgical History / Comment(s): Hiatal Hernia, umbilical hernia repair, left rotator cuff repair, bilateral knee scopes, pain clinic procedures- occipital nerve block. abd exploratory sx(endometreosis), 3 abd scopes 1981, 1989, 1991), lumbar puncture. EGD. nerve biopsy, salvalry gland biospy Past Anesthesia/Blood Transfusion Reactions: No Reported Reaction Additional Past Anesthesia/Blood Transfusion Reaction / Comment(s): Claustrophobic Past Psychological History: Anxiety, Bipolar, Panic Disorder, PTSD Smoking Status: Current every day smoker Past Alcohol Use History: None Reported Past Drug Use History: None Reported - Past Family History Mother Family Medical History: Cancer, Dementia, Diabetes Mellitus, GERD/Reflux, Hyperlipidemia, Hypertension, Thyroid Disorder Additional Family Medical History / Comment(s): Quad CABG, cardiac stents, toes ampuated and left leg amputated Father History Unknown: Yes Family Medical History: No Reported History General Exam Limitations: no limitations General appearance: alert, in no apparent distress Head exam: Present: atraumatic, normocephalic, normal inspection Eye exam: Present: normal appearance, PERRL, EOMI. Absent: scleral icterus, conjunctival injection, periorbital swelling ENT exam: Present: normal exam, mucous membranes moist Neck exam: Present: normal inspection. Absent: tenderness, meningismus, lymphadenopathy Respiratory exam: Present: normal lung sounds bilaterally. Absent: respiratory distress, wheezes, rales, rhonchi, stridor Cardiovascular Exam: Present: regular rate, normal rhythm, normal heart sounds. Absent: systolic murmur, diastolic murmur, rubs, gallop, clicks GI/Abdominal exam: Present: soft, normal bowel sounds. Absent: distended, tenderness, guarding, rebound, rigid Extremities exam: Present: normal inspection, full ROM, normal capillary refill. Absent: tenderness, pedal edema, joint swelling, calf tenderness Back exam: Present: normal inspection Neurological exam: Present: alert, oriented X3, CN II-XII intact Psychiatric exam: Present: normal affect, normal mood Skin exam: Present: warm, dry, intact, normal color. Absent: rash Course Vital Signs 10/19/21 20:45 Temperature 98.8 F Pulse Rate 97 Respiratory 18 Rate Blood Pressure 154/101 O2 Sat by Pulse 100 Oximetry - Reevaluation(s) Reevaluation #1: 10/19/21 22:28 Medical records reviewed Reevaluation #2: 10/19/21 22:28 Patient symptoms are improved Reevaluation #3: 10/19/21 22:28 Patient informed of results and plan, questions answered Medical Decision Making - Medical Decision Making 51 female DF for evaluation, she is well-known to our facility for recurrent headaches. Patient presents for headache today. Positive nausea no vomiting throbbing headache is like normal headaches without fever or trauma. Headache is now improved and patient can be discharged Disposition Clinical Impression: Chronic pain, Headache, Tension headache Disposition: HOME SELF-CARE Condition: Good Instructions (If sedation given, give patient instructions): Acute Headache (ED) Is patient prescribed a controlled substance at d/c from ED?: No Referrals: José Reece MD [Primary Care Provider] - 1-2 days Time of Disposition: 23:00
[2021-10-19] MEDS ORDERED: HYDROmorphone 1 MG/ML 1 ML SYRINGE IM STA (22:15)
[2021-10-19] MEDS ORDERED: dexAMETHasone 2 MG TAB PO STA (22:15)
[2021-10-19] MEDS ORDERED: diphenhydrAMINE 50 MG CAP PO STA (22:15)
[2021-10-19] MEDS ORDERED: ONDANSETRON ODT 4 MG TAB PO STA (22:16)
[2021-10-19 23:08] VITALS: BP 157/100; PULSE 78; RESP 16
== END 2021-10-19 23:13 | disposition home or self-care (01) ==
LOC: EC 20:36
DX: G89.29 Other chronic pain (principal); G44.209 Tension-type headache, unspecified, not intractable; E78.5 Hyperlipidemia, unspecified; I10 Essential (primary) hypertension; F17.200 Nicotine dependence, unspecified, uncomplicated; K21.9 Gastro-esophageal reflux disease without esophagitis; Z79.83 Long term (current) use of bisphosphonates; Z91.040 Latex allergy status; Z88.0 Allergy status to penicillin; Z88.8 Allergy status to other drugs, medicaments and biological substances; Z88.5 Allergy status to narcotic agent; Z88.7 Allergy status to serum and vaccine; Z88.6 Allergy status to analgesic agent; Z91.048 Other nonmedicinal substance allergy status
CPT/HCPCS: 99284; 96372; J1170; J1790

== ENCOUNTER 2021-10-21 16:22 | Emergency (ER) | payer OTHER ==
[2021-10-21 16:57] VITALS: BP 142/93; PULSE 89; RESP 20; TEMP 98.4
[2021-10-21] MEDS ORDERED: diphenhydrAMINE 50 MG/ML 1 ML VIAL IVP STA (18:57)
[2021-10-21] MEDS ORDERED: HYDROmorphone 1 MG/ML 1 ML SYRINGE IVP STA (18:57)
[2021-10-21] MEDS ORDERED: SODIUM CHLORIDE 0.9% 1,000 ML IV STA (18:57)
[2021-10-21] MEDS ORDERED: ONDANSETRON 4 MG/2 ML VIAL IVP STA (18:57)
--- NOTE | 2021-10-21 19:06 | ED ---
General Adult HPI - General Chief complaint: Headache Stated complaint: Migraine,vomiting Time Seen by Provider: 10/21/21 18:47 Source: patient Mode of arrival: ambulatory Limitations: no limitations - History of Present Illness Initial comments: Dictation was produced using [employer] dictation software. please excuse any grammatical, word or spelling errors. Chief Complaint: 51-year-old female well-known to emergency Department presents to the ER today for headache 5 days History of Present Illness: This 51-year-old female she was seen in the hospital 2 days ago. For the last 5 days she's been having her typical migraine headache. She is well-known to the emergency department for multiple visitations for headaches. Patient states that now she has 5 different neurologists that tried to help her with her headaches. Patient states her headaches are fairly typical. States it's whole cranial. Denies any fever. No neck stiffness. The ROS documented in this emergency department record has been reviewed and confirmed by me. Those systems with pertinent positive or negative responses have been documented in the HPI. All other systems are other negative and/or noncontributory. PHYSICAL EXAM: General Impression: Alert and oriented x3, not in acute distress HEENT: Normocephalic atraumatic, extra-ocular movements intact, pupils equal and reactive to light bilaterally, mucous membranes moist. Cardiovascular: Heart regular rate and rhythm Chest: Able to complete full sentences, no retractions, no tachypnea Abdomen: abdomen soft, non-tender, non-distended, no organomegaly Musculoskeletal: Pulses present and equal in all extremities, no peripheral edema Motor: no focal deficits noted Neurological: CN II-XII grossly intact, no focal motor or sensory deficits noted Skin: Intact with no visualized rashes Psych: Normal affect and mood ED course: 51-year-old appearing female presents to the emergency department for her usual headaches. Patient is well-known to emergency department. She was just here 2 days ago and 4 days before that. He reports that she is having her typical headaches. Patient given headache cocktail monitored in the emergency department. Patient reevaluated bedside after headache cocktail 9:13 PM patient states she feels much better and wants to be discharge. Patient does not feel the need to have the rest of the fluids administered. - Related Data Home Medications Medication Instructions Recorded Confirmed amLODIPine [Norvasc] 5 mg PO HS 04/28/20 09/14/21 Omeprazole [PriLOSEC] 20 mg PO BID 12/15/20 09/14/21 Thiamine [Vitamin B-1] 100 mg PO HS 01/04/21 09/14/21 Atorvastatin [Lipitor] 40 mg PO HS 07/20/21 09/14/21 DULoxetine HCL [Cymbalta] 60 mg PO HS 07/20/21 09/14/21 buprenorphine HCL [Subutex] 1 mg SUBLINGUAL TID 07/20/21 09/14/21 Previous Rx's Medication Instructions Recorded HYDROcodone/APAP 7.5-325MG [[place] 1 tab PO TID PRN #12 tab 11/17/20 7.5-325] Lacosamide [Vimpat] 100 mg PO BID 7 Days #14 tab 01/16/21 Allergies Allergy/AdvReac Type Severity Reaction Status Date / Time dihydroergotamine Allergy Unknown Unknown Verified 10/21/21 16:57 [From Migranal] buprenorphine Allergy Rash/Hives Verified 10/21/21 16:57 gabapentin [From Neurontin] Allergy Itching/Swe Verified 10/21/21 16:57 lling latex Allergy Anaphylaxis Verified 10/21/21 16:57 naproxen [From Naprosyn] Allergy Anaphylaxis Verified 10/21/21 16:57 Penicillins Allergy Anaphylaxis Verified 10/21/21 16:57 prednisone Allergy Swelling Verified 10/21/21 16:57 quetiapine fumarate Allergy Itching, Verified 10/21/21 16:57 [From Seroquel] leg cramps rofecoxib [From Vioxx] Allergy Itching, Verified 10/21/21 16:57 leg cramps terfenadine [From Seldane] Allergy Rash/Hives Verified 10/21/21 16:57 tramadol Allergy Nausea & Verified 10/21/21 16:57 Vomiting/LEG CRAMPS/HEART FLUTTERS calcium carbonate [From DHEA] AdvReac Chest Pain Verified 10/21/21 16:57 calcium phosphate,dibasic AdvReac Chest Pain Verified 10/21/21 16:57 [From DHEA] clindamycin AdvReac muscle Verified 10/21/21 16:57 cramps clonidine AdvReac fast Verified 10/21/21 16:57 heartbeat, migraine dextromethorphan HBr AdvReac face/neck Verified 10/21/21 16:57 [From NyQuil] flushing diazepam [From Valium] AdvReac Nausea & Verified 10/21/21 16:57 Vomiting divalproex sodium AdvReac Nausea & Verified 10/21/21 16:57 [From Depakote] Vomiting doxylamine [From NyQuil] AdvReac face "beet Verified 10/21/21 16:57 red", elevated temp. ibuprofen [From Motrin] AdvReac abdominal Verified 10/21/21 16:57 & muscle cramps indomethacin [From Indocin] AdvReac Abdominal Verified 10/21/21 16:57 Pain,N/V ketorolac tromethamine AdvReac "built up Verified 10/21/21 16:57 [From Toradol] in system", had to be given something to reverse lorazepam [From Ativan] AdvReac Nausea & Verified 10/21/21 16:57 Vomiting memantine [From Namenda] AdvReac Itching Verified 10/21/21 16:57 metoclopramide HCl AdvReac muscle Verified 10/21/21 16:57 [From Reglan] cramps nortriptyline [From Pamelor] AdvReac Chest Pain Verified 10/21/21 16:57 prasterone (DHEA) [From DHEA] AdvReac Chest Pain Verified 10/21/21 16:57 prochlorperazine AdvReac leg Verified 10/21/21 16:57 [From Compazine] cramping propranolol AdvReac Chest Pain Verified 10/21/21 16:57 pseudoephedrine HCl AdvReac face "beet Verified 10/21/21 16:57 [From NyQuil] red", elevated temp. quetiapine [From Seroquel] AdvReac leg Verified 10/21/21 16:57 cramping sumatriptan [From Imitrex] AdvReac migrane Verified 10/21/21 16:57 sumatriptan succinate AdvReac migrane Verified 10/21/21 16:57 [From Imitrex] topiramate [From Topamax] AdvReac "built up Verified 10/21/21 16:57 in system", had to be given something to reverse trazodone AdvReac "built up Verified 10/21/21 16:57 in system", had to be given something to reverse zolpidem tartrate AdvReac "Became Verified 10/21/21 16:57 [From Ambien] violent with no memory" zonisamide [From Zonegran] AdvReac inability Verified 10/21/21 16:57 to eat prosyn Allergy Itching Uncoded 10/21/21 16:57 artificial sweetener AdvReac SEVERE Uncoded 10/21/21 16:57 MIGRAINE HEADACHE Review of Systems ROS Statement: Those systems with pertinent positive or pertinent negative responses have been documented in the HPI. ROS Other: All systems not noted in ROS Statement are negative. Past Medical History Past Medical History: Hyperlipidemia, Hypertension, Seizure Disorder Additional Past Medical History / Comment(s): Migraines, viral meningitis x3 as a child, 1995, 2000, chronic back pain, nerve blocks 08/2016 and 12/2016. Last seizure 10/10/2020, "ABSENT SEIZURES. HX TACHYCARDIA, GBS/CIPD, PTSD. History of Any Multi-Drug Resistant Organisms: None Reported Past Surgical History: Appendectomy, Section, Cholecystectomy, Hernia Repair, Hysterectomy, Orthopedic Surgery, Tonsillectomy, Tubal Ligation Additional Past Surgical History / Comment(s): Hiatal Hernia, umbilical hernia repair, left rotator cuff repair, bilateral knee scopes, pain clinic procedures- occipital nerve block. abd exploratory sx(endometreosis), 3 abd scopes 1981, 1989, 1991), lumbar puncture. EGD. nerve biopsy, salvalry gland biospy Past Anesthesia/Blood Transfusion Reactions: No Reported Reaction Additional Past Anesthesia/Blood Transfusion Reaction / Comment(s): Claustrophobic Past Psychological History: Anxiety, Bipolar, Panic Disorder, PTSD Smoking Status: Current every day smoker Past Alcohol Use History: None Reported Past Drug Use History: None Reported - Past Family History Mother Family Medical History: Cancer, Dementia, Diabetes Mellitus, GERD/Reflux, Hyperlipidemia, Hypertension, Thyroid Disorder Additional Family Medical History / Comment(s): Quad CABG, cardiac stents, toes ampuated and left leg amputated Father History Unknown: Yes Family Medical History: No Reported History General Exam Limitations: no limitations Course Vital Signs 10/21/21 16:53 Temperature 98.4 F Pulse Rate 89 Respiratory 20 Rate Blood Pressure 142/93 O2 Sat by Pulse 99 Oximetry Disposition Clinical Impression: Acute headache Disposition: HOME SELF-CARE Condition: Fair Instructions (If sedation given, give patient instructions): Acute Headache (ED) Is patient prescribed a controlled substance at d/c from ED?: No Referrals: José Reece MD [Primary Care Provider] - 1-2 days Time of Disposition: 21:14
== END 2021-10-21 21:25 | disposition home or self-care (01) ==
LOC: EC 16:22
DX: R51.9 Headache, unspecified (principal); R11.10 Vomiting, unspecified; F17.200 Nicotine dependence, unspecified, uncomplicated; E78.5 Hyperlipidemia, unspecified; I10 Essential (primary) hypertension; Z86.69 Personal history of other diseases of the nervous system and sense organs; Z88.8 Allergy status to other drugs, medicaments and biological substances; Z91.040 Latex allergy status; Z88.0 Allergy status to penicillin; Z88.6 Allergy status to analgesic agent; Z88.1 Allergy status to other antibiotic agents; Z91.02 Food additives allergy status; Z79.899 Other long term (current) drug therapy
CPT/HCPCS: 99283; 96374; 96375; J1200; J2405; J1170

== ENCOUNTER 2021-10-22 14:36 | Emergency (ER) | payer OTHER ==
[2021-10-22] MEDS ORDERED: ACETAMINOPHEN TAB 500 MG TAB PO STA (16:50)
[2021-10-22] MEDS ORDERED: diphenhydrAMINE 50 MG/ML 1 ML VIAL IVP STA (16:50)
[2021-10-22] MEDS ORDERED: SODIUM CHLORIDE 0.9% 500 ML 500 ML IV ONE (16:50)
[2021-10-22] MEDS ORDERED: BUTORPHANOL 1 MG/ML 1 ML VIAL IM STA (17:01)
--- NOTE | 2021-10-22 17:08 | ED ---
General Adult HPI - General Chief complaint: Headache Stated complaint: Migraine Time Seen by Provider: 10/22/21 16:45 Source: patient, RN notes reviewed, old records reviewed Mode of arrival: ambulatory Limitations: no limitations - History of Present Illness Initial comments: 51 yo female presenting with chronic headache. Patient has similar headache to her chronic headache. Describes this as a generalized burning sensation. This was not an acute onset. She has been taking her medications at home, no fever, no alarming features. No focal numbness or weakness. She had taken [place] at home. As well as her abortive medications. - Related Data Home Medications Medication Instructions Recorded Confirmed amLODIPine [Norvasc] 5 mg PO HS 04/28/20 09/14/21 Omeprazole [PriLOSEC] 20 mg PO BID 12/15/20 09/14/21 Thiamine [Vitamin B-1] 100 mg PO HS 01/04/21 09/14/21 Atorvastatin [Lipitor] 40 mg PO HS 07/20/21 09/14/21 DULoxetine HCL [Cymbalta] 60 mg PO HS 07/20/21 09/14/21 buprenorphine HCL [Subutex] 1 mg SUBLINGUAL TID 07/20/21 09/14/21 Previous Rx's Medication Instructions Recorded HYDROcodone/APAP 7.5-325MG [[place] 1 tab PO TID PRN #12 tab 11/17/20 7.5-325] Lacosamide [Vimpat] 100 mg PO BID 7 Days #14 tab 01/16/21 Allergies Allergy/AdvReac Type Severity Reaction Status Date / Time dihydroergotamine Allergy Unknown Unknown Verified 10/22/21 15:16 [From Migranal] buprenorphine Allergy Rash/Hives Verified 10/22/21 15:16 gabapentin [From Neurontin] Allergy Itching/Swe Verified 10/22/21 15:16 lling latex Allergy Anaphylaxis Verified 10/22/21 15:16 naproxen [From Naprosyn] Allergy Anaphylaxis Verified 10/22/21 15:16 Penicillins Allergy Anaphylaxis Verified 10/22/21 15:16 prednisone Allergy Swelling Verified 10/22/21 15:16 quetiapine fumarate Allergy Itching, Verified 10/22/21 15:16 [From Seroquel] leg cramps rofecoxib [From Vioxx] Allergy Itching, Verified 10/22/21 15:16 leg cramps terfenadine [From Seldane] Allergy Rash/Hives Verified 10/22/21 15:16 tramadol Allergy Nausea & Verified 10/22/21 15:16 Vomiting/LEG CRAMPS/HEART FLUTTERS calcium carbonate [From DHEA] AdvReac Chest Pain Verified 10/22/21 15:16 calcium phosphate,dibasic AdvReac Chest Pain Verified 10/22/21 15:16 [From DHEA] clindamycin AdvReac muscle Verified 10/22/21 15:16 cramps clonidine AdvReac fast Verified 10/22/21 15:16 heartbeat, migraine dextromethorphan HBr AdvReac face/neck Verified 10/22/21 15:16 [From NyQuil] flushing diazepam [From Valium] AdvReac Nausea & Verified 10/22/21 15:16 Vomiting divalproex sodium AdvReac Nausea & Verified 10/22/21 15:16 [From Depakote] Vomiting doxylamine [From NyQuil] AdvReac face "beet Verified 10/22/21 15:16 red", elevated temp. ibuprofen [From Motrin] AdvReac abdominal Verified 10/22/21 15:16 & muscle cramps indomethacin [From Indocin] AdvReac Abdominal Verified 10/22/21 15:16 Pain,N/V ketorolac tromethamine AdvReac "built up Verified 10/22/21 15:16 [From Toradol] in system", had to be given something to reverse lorazepam [From Ativan] AdvReac Nausea & Verified 10/22/21 15:16 Vomiting memantine [From Namenda] AdvReac Itching Verified 10/22/21 15:16 metoclopramide HCl AdvReac muscle Verified 10/22/21 15:16 [From Reglan] cramps nortriptyline [From Pamelor] AdvReac Chest Pain Verified 10/22/21 15:16 prasterone (DHEA) [From DHEA] AdvReac Chest Pain Verified 10/22/21 15:16 prochlorperazine AdvReac leg Verified 10/22/21 15:16 [From Compazine] cramping propranolol AdvReac Chest Pain Verified 10/22/21 15:16 pseudoephedrine HCl AdvReac face "beet Verified 10/22/21 15:16 [From NyQuil] red", elevated temp. quetiapine [From Seroquel] AdvReac leg Verified 10/22/21 15:16 cramping sumatriptan [From Imitrex] AdvReac migrane Verified 10/22/21 15:16 sumatriptan succinate AdvReac migrane Verified 10/22/21 15:16 [From Imitrex] topiramate [From Topamax] AdvReac "built up Verified 10/22/21 15:16 in system", had to be given something to reverse trazodone AdvReac "built up Verified 10/22/21 15:16 in system", had to be given something to reverse zolpidem tartrate AdvReac "Became Verified 10/22/21 15:16 [From Ambien] violent with no memory" zonisamide [From Zonegran] AdvReac inability Verified 10/22/21 15:16 to eat prosyn Allergy Itching Uncoded 10/22/21 15:16 artificial sweetener AdvReac SEVERE Uncoded 10/22/21 15:16 MIGRAINE HEADACHE Review of Systems ROS Statement: Those systems with pertinent positive or pertinent negative responses have been documented in the HPI. ROS Other: All systems not noted in ROS Statement are negative. Past Medical History Past Medical History: Hyperlipidemia, Hypertension, Seizure Disorder Additional Past Medical History / Comment(s): Migraines, viral meningitis x3 as a child, 1995, 2000, chronic back pain, nerve blocks 08/2016 and 12/2016. Last seizure 10/10/2020, "ABSENT SEIZURES. HX TACHYCARDIA, GBS/CIPD, PTSD. History of Any Multi-Drug Resistant Organisms: None Reported Past Surgical History: Appendectomy, Section, Cholecystectomy, Hernia Repair, Hysterectomy, Orthopedic Surgery, Tonsillectomy, Tubal Ligation Additional Past Surgical History / Comment(s): Hiatal Hernia, umbilical hernia repair, left rotator cuff repair, bilateral knee scopes, pain clinic procedures- occipital nerve block. abd exploratory sx(endometreosis), 3 abd scopes 1981, 1989, 1991), lumbar puncture. EGD. nerve biopsy, salvalry gland biospy Past Anesthesia/Blood Transfusion Reactions: No Reported Reaction Additional Past Anesthesia/Blood Transfusion Reaction / Comment(s): Claustrophobic Past Psychological History: Anxiety, Bipolar, Panic Disorder, PTSD Smoking Status: Current every day smoker Past Alcohol Use History: None Reported Past Drug Use History: None Reported - Past Family History Mother Family Medical History: Cancer, Dementia, Diabetes Mellitus, GERD/Reflux, Hyperlipidemia, Hypertension, Thyroid Disorder Additional Family Medical History / Comment(s): Quad CABG, cardiac stents, toes ampuated and left leg amputated Father History Unknown: Yes Family Medical History: No Reported History General Exam Limitations: no limitations General appearance: alert, in no apparent distress Head exam: Present: atraumatic, normocephalic Eye exam: Present: normal appearance, PERRL Neck exam: Present: normal inspection. Absent: tenderness, meningismus Respiratory exam: Present: normal lung sounds bilaterally. Absent: respiratory distress, wheezes Cardiovascular Exam: Present: regular rate, normal rhythm GI/Abdominal exam: Present: soft. Absent: distended, tenderness Extremities exam: Present: normal inspection, normal capillary refill. Absent: pedal edema Neurological exam: Present: alert, oriented X3, CN II-XII intact. Absent: motor sensory deficit Psychiatric exam: Present: normal affect, normal mood Skin exam: Present: warm, dry, intact. Absent: cyanosis, diaphoretic Course Vital Signs 10/22/21 15:13 Pulse Rate 96 Respiratory 16 Rate Blood Pressure 160/93 O2 Sat by Pulse 99 Oximetry Medical Decision Making - Medical Decision Making Patient with chronic headache, no alarming features, stable vitals, patient appears well hydrated. Given 1 dose of Stadol and should continue to follow with her primary care physician and her neurologist. She requests Stadol stating that this works well for her headaches. Disposition Clinical Impression: Chronic pain Disposition: HOME SELF-CARE Condition: Fair Instructions (If sedation given, give patient instructions): Chronic Pain (ED) Is patient prescribed a controlled substance at d/c from ED?: No Referrals: José Reece MD [Primary Care Provider] - 1-2 days Time of Disposition: 17:08
[2021-10-22 18:15] VITALS: BP 124/84; PULSE 91; RESP 18
== END 2021-10-22 18:15 | disposition home or self-care (01) ==
LOC: EC 14:36
DX: G89.29 Other chronic pain (principal); E78.5 Hyperlipidemia, unspecified; I10 Essential (primary) hypertension; F17.200 Nicotine dependence, unspecified, uncomplicated; Z88.0 Allergy status to penicillin; Z88.8 Allergy status to other drugs, medicaments and biological substances; Z91.040 Latex allergy status; Z88.5 Allergy status to narcotic agent; Z91.048 Other nonmedicinal substance allergy status
CPT/HCPCS: 99283; J0595

== ENCOUNTER 2021-10-24 21:45 | Emergency (ER) | payer OTHER ==
[2021-10-24 21:53] VITALS: BP 144/96; PULSE 112; RESP 18; TEMP 98.5
[2021-10-24] MEDS ORDERED: SODIUM CHLORIDE 0.9% 1,000 ML IV STA (22:17)
[2021-10-24] MEDS ORDERED: ONDANSETRON 4 MG/2 ML VIAL IVP STA (22:17)
[2021-10-24] MEDS ORDERED: diphenhydrAMINE 50 MG/ML 1 ML VIAL IVP STA (22:20)
[2021-10-24] MEDS ORDERED: HYDROmorphone 0.5 MG/0.5 ML SYRINGE IVP STA ×2 (22:20→23:53)
--- NOTE | 2021-10-24 22:51 | CT ---
EXAMINATION TYPE: CT brain wo con DATE OF EXAM: 10/24/2021 COMPARISON: 07/20/2021 HISTORY: headache CT DLP: 1201.4 mGycm Automated exposure control for dose reduction was used. Ventricles and sulci appear normal. There is no mass effect or midline shift. No sign of intracranial hemorrhage. The calvarium is intact. Skull base is intact. There is normal aeration of the mastoid s inuses. IMPRESSION: Negative unenhanced head CT scan. No change.
[2021-10-24 23:13] LABS: Basophils # (A) 0.1 k/uL (0-0.2); Basophils % (A) 0 %; Eosinophils # (A) 0.1 k/uL (0-0.7); Eosinophils % (A) 1 %; HCT 34.9 % (34.0-46.0); HGB 11.4 gm/dL (11.4-16.0); Lymphocytes # (A) 2.9 k/uL (1.0-4.8); Lymphocytes % (A) 28 %; MCH 32.6 pg (25.0-35.0); MCHC 32.6 g/dL (31.0-37.0); MCV 99.9 fL (80.0-100.0); Macrocytosis Slight; Mean Platelet Volume 8.9; Monocytes # (A) 0.6 k/uL (0-1.0); Monocytes % (A) 6 %; Neutrophils # (A) 6.5 k/uL (1.3-7.7); Neutrophils % (A) 62 %; Platelet Count 244 k/uL (150-450); RBC 3.49 m/uL (3.80-5.40); RDW 14.8 % (11.5-15.5); WBC 10.4 k/uL (3.8-10.6)
--- NOTE | 2021-10-24 23:16 | ED ---
Headache HPI - General Chief Complaint: Headache Stated Complaint: Migraine Time Seen by Provider: 10/24/21 21:55 Mode of arrival: ambulatory Limitations: no limitations - History of Present Illness Initial Comments: Patient is a 51-year-old female with past medical history significant for migraines who presents to the emergency department with a chief complaint migraine headache. Patient states her symptoms haven't been occurring for the past 10 days. States this headache feels different than her typical headaches that she feels as if her "brain is on fire." Patient states her abortive medications are not working. Admits to nausea without vomiting. Denies fever and chills. Denies neck pain. Denies focal weakness and numbness. Patient has been evaluated several times this month in our emergency department for headache. - Related Data Home Medications Medication Instructions Recorded Confirmed amLODIPine [Norvasc] 5 mg PO HS 04/28/20 09/14/21 Omeprazole [PriLOSEC] 20 mg PO BID 12/15/20 09/14/21 Thiamine [Vitamin B-1] 100 mg PO HS 01/04/21 09/14/21 Atorvastatin [Lipitor] 40 mg PO HS 07/20/21 09/14/21 DULoxetine HCL [Cymbalta] 60 mg PO HS 07/20/21 09/14/21 buprenorphine HCL [Subutex] 1 mg SUBLINGUAL TID 07/20/21 09/14/21 Previous Rx's Medication Instructions Recorded HYDROcodone/APAP 7.5-325MG [[place] 1 tab PO TID PRN #12 tab 11/17/20 7.5-325] Lacosamide [Vimpat] 100 mg PO BID 7 Days #14 tab 01/16/21 Ondansetron Odt [Zofran Odt] 4 mg PO Q8HR PRN #10 tab 10/24/21 Allergies Allergy/AdvReac Type Severity Reaction Status Date / Time dihydroergotamine Allergy Unknown Unknown Verified 10/25/21 13:40 [From Migranal] buprenorphine Allergy Rash/Hives Verified 10/25/21 13:40 gabapentin [From Neurontin] Allergy Itching/Swe Verified 10/25/21 13:40 lling latex Allergy Anaphylaxis Verified 10/25/21 13:40 naproxen [From Naprosyn] Allergy Anaphylaxis Verified 10/25/21 13:40 Penicillins Allergy Anaphylaxis Verified 10/25/21 13:40 prednisone Allergy Swelling Verified 10/25/21 13:40 quetiapine fumarate Allergy Itching, Verified 10/25/21 13:40 [From Seroquel] leg cramps rofecoxib [From Vioxx] Allergy Itching, Verified 10/25/21 13:40 leg cramps terfenadine [From Seldane] Allergy Rash/Hives Verified 10/25/21 13:40 tramadol Allergy Nausea & Verified 10/25/21 13:40 Vomiting/LEG CRAMPS/HEART FLUTTERS calcium carbonate [From DHEA] AdvReac Chest Pain Verified 10/25/21 13:40 calcium phosphate,dibasic AdvReac Chest Pain Verified 10/25/21 13:40 [From DHEA] clindamycin AdvReac muscle Verified 10/25/21 13:40 cramps clonidine AdvReac fast Verified 10/25/21 13:40 heartbeat, migraine dextromethorphan HBr AdvReac face/neck Verified 10/25/21 13:40 [From NyQuil] flushing diazepam [From Valium] AdvReac Nausea & Verified 10/25/21 13:40 Vomiting divalproex sodium AdvReac Nausea & Verified 10/25/21 13:40 [From Depakote] Vomiting doxylamine [From NyQuil] AdvReac face "beet Verified 10/25/21 13:40 red", elevated temp. ibuprofen [From Motrin] AdvReac abdominal Verified 10/25/21 13:40 & muscle cramps indomethacin [From Indocin] AdvReac Abdominal Verified 10/25/21 13:40 Pain,N/V ketorolac tromethamine AdvReac "built up Verified 10/25/21 13:40 [From Toradol] in system", had to be given something to reverse lorazepam [From Ativan] AdvReac Nausea & Verified 10/25/21 13:40 Vomiting memantine [From Namenda] AdvReac Itching Verified 10/25/21 13:40 metoclopramide HCl AdvReac muscle Verified 10/25/21 13:40 [From Reglan] cramps nortriptyline [From Pamelor] AdvReac Chest Pain Verified 10/25/21 13:40 prasterone (DHEA) [From DHEA] AdvReac Chest Pain Verified 10/25/21 13:40 prochlorperazine AdvReac leg Verified 10/25/21 13:40 [From Compazine] cramping propranolol AdvReac Chest Pain Verified 10/25/21 13:40 pseudoephedrine HCl AdvReac face "beet Verified 10/25/21 13:40 [From NyQuil] red", elevated temp. quetiapine [From Seroquel] AdvReac leg Verified 10/25/21 13:40 cramping sumatriptan [From Imitrex] AdvReac migrane Verified 10/25/21 13:40 sumatriptan succinate AdvReac migrane Verified 10/25/21 13:40 [From Imitrex] topiramate [From Topamax] AdvReac "built up Verified 10/25/21 13:40 in system", had to be given something to reverse trazodone AdvReac "built up Verified 10/25/21 13:40 in system", had to be given something to reverse zolpidem tartrate AdvReac "Became Verified 10/25/21 13:40 [From Ambien] violent with no memory" zonisamide [From Zonegran] AdvReac inability Verified 10/25/21 13:40 to eat prosyn Allergy Itching Uncoded 10/25/21 13:40 artificial sweetener AdvReac SEVERE Uncoded 10/25/21 13:40 MIGRAINE HEADACHE Review of Systems ROS Statement: Those systems with pertinent positive or pertinent negative responses have been documented in the HPI. ROS Other: All systems not noted in ROS Statement are negative. Past Medical History Past Medical History: Hyperlipidemia, Hypertension, Seizure Disorder Additional Past Medical History / Comment(s): Migraines, viral meningitis x3 as a child, 1995, 2000, chronic back pain, nerve blocks 08/2016 and 12/2016. Last seizure 10/10/2020, "ABSENT SEIZURES. HX TACHYCARDIA, GBS/CIPD, PTSD. History of Any Multi-Drug Resistant Organisms: None Reported Past Surgical History: Appendectomy, Section, Cholecystectomy, Hernia Repair, Hysterectomy, Orthopedic Surgery, Tonsillectomy, Tubal Ligation Additional Past Surgical History / Comment(s): Hiatal Hernia, umbilical hernia repair, left rotator cuff repair, bilateral knee scopes, pain clinic procedures- occipital nerve block. abd exploratory sx(endometreosis), 3 abd scopes 1981, 1989, 1991), lumbar puncture. EGD. nerve biopsy, salvalry gland biospy Past Anesthesia/Blood Transfusion Reactions: No Reported Reaction Additional Past Anesthesia/Blood Transfusion Reaction / Comment(s): Claustrophobic Past Psychological History: Anxiety, Bipolar, Panic Disorder, PTSD Smoking Status: Current every day smoker Past Alcohol Use History: None Reported Past Drug Use History: None Reported - Past Family History Mother Family Medical History: Cancer, Dementia, Diabetes Mellitus, GERD/Reflux, Hyp erlipidemia, Hypertension, Thyroid Disorder Additional Family Medical History / Comment(s): Quad CABG, cardiac stents, toes ampuated and left leg amputated Father History Unknown: Yes Family Medical History: No Reported History General Exam Limitations: no limitations General appearance: alert, in no apparent distress Head exam: Present: atraumatic, normocephalic, normal inspection Eye exam: Present: normal appearance, PERRL, EOMI. Absent: scleral icterus, conjunctival injection, periorbital swelling Neck exam: Present: normal inspection. Absent: tenderness, meningismus, lymphadenopathy Respiratory exam: Present: normal lung sounds bilaterally. Absent: respiratory distress, wheezes, rales, rhonchi, stridor Cardiovascular Exam: Present: regular rate, normal rhythm, normal heart sounds. Absent: systolic murmur, diastolic murmur, rubs, gallop, clicks GI/Abdominal exam: Present: soft, normal bowel sounds. Absent: distended, tenderness, guarding, rebound, rigid Back exam: Present: normal inspection Neurological exam: Present: alert, oriented X3, CN II-XII intact Psychiatric exam: Present: normal affect, normal mood Course Vital Signs 10/24/21 21:50 Temperature 98.5 F Pulse Rate 112 H Respiratory 18 Rate Blood Pressure 144/96 O2 Sat by Pulse 98 Oximetry Medical Decision Making - Medical Decision Making This is a 51-year-old female presenting with migraine headache. Thorough history and examination were performed. There is no evidence of neurological deficit on physical exam. Given patient states this headache is different from her typical headaches I did obtain CT of the brain without contrast which is negative for acute process. Patient given migraine cocktail with little relief. I then gave her a second dose of Dilaudid which provided some relief. Patient and I discussed in detail that she will need to see her neurologist for better control of her migraine headaches. She verbalizes understanding. Dr. Plascencia is my attending. - Lab Data Result diagrams: 10/24/21 22:58 10/24/21 22:58 Lab Results 10/24/21 10/24/21 Range/Units 22:58 22:58 WBC 10.4 (3.8-10.6) k/uL RBC 3.49 L (3.80-5.40) m/uL Hgb 11.4 (11.4-16.0) gm/dL Hct 34.9 (34.0-46.0) % MCV 99.9 (80.0-100.0) fL MCH 32.6 (25.0-35.0) pg MCHC 32.6 (31.0-37.0) g/dL RDW 14.8 (11.5-15.5) % Plt Count 244 (150-450) k/uL MPV 8.9 Neutrophils % 62 % Lymphocytes % 28 % Monocytes % 6 % Eosinophils % 1 % Basophils % 0 % Neutrophils # 6.5 (1.3-7.7) k/uL Lymphocytes # 2.9 (1.0-4.8) k/uL Monocytes # 0.6 (0-1.0) k/uL Eosinophils # 0.1 (0-0.7) k/uL Basophils # 0.1 (0-0.2) k/uL Macrocytosis Slight Sodium 140 (137-145) mmol/L Potassium 3.3 L (3.5-5.1) mmol/L Chloride 105 (98-107) mmol/L Carbon Dioxide 31 H (22-30) mmol/L Anion Gap 4 mmol/L BUN 7 (7-17) mg/dL Creatinine 0.87 (0.52-1.04) mg/dL Est GFR (CKD-EPI)AfAm >90 (>60 ml/min/1.73 sqM) Est GFR (CKD-EPI)NonAf 79 (>60 ml/min/1.73 sqM) Glucose 81 (74-99) mg/dL Calcium 8.4 (8.4-10.2) mg/dL Total Bilirubin 0.2 (0.2-1.3) mg/dL AST 18 (14-36) U/L ALT 11 (4-34) U/L Alkaline Phosphatase 121 (38-126) U/L Total Protein 5.7 L (6.3-8.2) g/dL Albumin 3.3 L (3.5-5.0) g/dL Disposition Clinical Impression: Migraine, Hypokalemia Disposition: HOME SELF-CARE Condition: Good Instructions (If sedation given, give patient instructions): Migraine Headache (ED) Additional Instructions: Take Zofran as directed. The next dose will be at 7 AM. It is very important to follow-up with your neurologist. Continue to take your preventative migraine medication. Return to the emergency department if you experience new, concerning, or worsening symptoms. Prescriptions: Ondansetron Odt [Zofran Odt] 4 mg PO Q8HR PRN #10 tab PRN Reason: Nausea Is patient prescribed a controlled substance at d/c from ED?: No Referrals: José Reece MD [Primary Care Provider] - 1-2 days Time of Disposition: 23:16
[2021-10-24 23:38] LABS: ALT 11 U/L (4-34); AST 18 U/L (14-36); African American GFR (CKD) >90 (>60 ml/min/1.73 sqM); Albumin 3.3 g/dL (3.5-5.0); Alkaline Phosphatase 121 U/L (38-126); Anion Gap 4 mmol/L; Blood Urea Nitrogen 7 mg/dL (7-17); Calcium 8.4 mg/dL (8.4-10.2); Carbon Dioxide 31 mmol/L (22-30); Chloride 105 mmol/L (98-107); Glucose 81 mg/dL (74-99); Non-African American GFR(CKD) 79 (>60 ml/min/1.73 sqM); Potassium 3.3 mmol/L (3.5-5.1); Sodium 140 mmol/L (137-145); Total Bilirubin 0.2 mg/dL (0.2-1.3); Total Protein 5.7 g/dL (6.3-8.2)
[2021-10-24] MEDS ORDERED: POTASSIUM CHLORIDE ER 20 MEQ TAB.ER PO STA (23:46)
[2021-10-24] MEDS ORDERED: ONDANSETRON 4 MG ODT STARTER PACK 2 TAB BTL PO STA (23:47)
== END 2021-10-25 00:25 | disposition home or self-care (01) ==
LOC: EC 21:45
DX: G43.909 Migraine, unspecified, not intractable, without status migrainosus (principal); E87.6 Hypokalemia; I10 Essential (primary) hypertension; E78.5 Hyperlipidemia, unspecified; F41.9 Anxiety disorder, unspecified; F31.9 Bipolar disorder, unspecified; F17.200 Nicotine dependence, unspecified, uncomplicated; Z88.8 Allergy status to other drugs, medicaments and biological substances; Z88.5 Allergy status to narcotic agent; Z91.040 Latex allergy status; Z88.6 Allergy status to analgesic agent; Z88.0 Allergy status to penicillin; Z88.1 Allergy status to other antibiotic agents; Z91.018 Allergy to other foods; Z79.899 Other long term (current) drug therapy
CPT/HCPCS: 36415; 80053; 85025; 70450; 99284; 96374; 96375 ×2; 96376; 96361; J1200; J2405; J1642; S0119; J1170 ×2

== ENCOUNTER 2021-10-25 13:26 | Emergency (ER) | payer OTHER ==
[2021-10-25 13:40] VITALS: RESP 18; TEMP 98
[2021-10-25] MEDS ORDERED: BUTORPHANOL 1 MG/ML 1 ML VIAL IM PRN (13:53)
[2021-10-25] MEDS ORDERED: ONDANSETRON 4 MG/2 ML VIAL IM STA (13:53)
--- NOTE | 2021-10-25 14:07 | ED ---
Headache HPI - General Chief Complaint: Headache Stated Complaint: headache Time Seen by Provider: 10/25/21 13:48 Source: patient, family, RN notes reviewed, old records reviewed Mode of arrival: ambulatory Limitations: no limitations - History of Present Illness Initial Comments: 51-year-old female presents to the emergency room with complaints of migraine headache on and off for the past 10 days. Patient states that this is similar to previous migraine headaches. Her abortive medications are not working. She was in the hospital multiple times this month already for chronic migraines. She has been in contact with her neurologist and they are considering another medication. She states Stadol and Zofran seemed to work best IM. She denies an y fevers or focal motor weakness. MD Complaint: "migraine" -: days(s) (10) Onset Description: at rest Improves With: medication - Related Data Home Medications Medication Instructions Recorded Confirmed amLODIPine [Norvasc] 5 mg PO HS 04/28/20 09/14/21 Omeprazole [PriLOSEC] 20 mg PO BID 12/15/20 09/14/21 Thiamine [Vitamin B-1] 100 mg PO HS 01/04/21 09/14/21 Atorvastatin [Lipitor] 40 mg PO HS 07/20/21 09/14/21 DULoxetine HCL [Cymbalta] 60 mg PO HS 07/20/21 09/14/21 buprenorphine HCL [Subutex] 1 mg SUBLINGUAL TID 07/20/21 09/14/21 Previous Rx's Medication Instructions Recorded HYDROcodone/APAP 7.5-325MG [[place] 1 tab PO TID PRN #12 tab 11/17/20 7.5-325] Lacosamide [Vimpat] 100 mg PO BID 7 Days #14 tab 01/16/21 Ondansetron Odt [Zofran Odt] 4 mg PO Q8HR PRN #10 tab 10/24/21 Allergies Allergy/AdvReac Type Severity Reaction Status Date / Time dihydroergotamine Allergy Unknown Unknown Verified 10/25/21 13:40 [From Migranal] buprenorphine Allergy Rash/Hives Verified 10/25/21 13:40 gabapentin [From Neurontin] Allergy Itching/Swe Verified 10/25/21 13:40 lling latex Allergy Anaphylaxis Verified 10/25/21 13:40 naproxen [From Naprosyn] Allergy Anaphylaxis Verified 10/25/21 13:40 Penicillins Allergy Anaphylaxis Verified 10/25/21 13:40 prednisone Allergy Swelling Verified 10/25/21 13:40 quetiapine fumarate Allergy Itching, Verified 10/25/21 13:40 [From Seroquel] leg cramps rofecoxib [From Vioxx] Allergy Itching, Verified 10/25/21 13:40 leg cramps terfenadine [From Seldane] Allergy Rash/Hives Verified 10/25/21 13:40 tramadol Allergy Nausea & Verified 10/25/21 13:40 Vomiting/LEG CRAMPS/HEART FLUTTERS calcium carbonate [From DHEA] AdvReac Chest Pain Verified 10/25/21 13:40 calcium phosphate,dibasic AdvReac Chest Pain Verified 10/25/21 13:40 [From DHEA] clindamycin AdvReac muscle Verified 10/25/21 13:40 cramps clonidine AdvReac fast Verified 10/25/21 13:40 heartbeat, migraine dextromethorphan HBr AdvReac face/neck Verified 10/25/21 13:40 [From NyQuil] flushing diazepam [From Valium] AdvReac Nausea & Verified 10/25/21 13:40 Vomiting divalproex sodium AdvReac Nausea & Verified 10/25/21 13:40 [From Depakote] Vomiting doxylamine [From NyQuil] AdvReac face "beet Verified 10/25/21 13:40 red", elevated temp. ibuprofen [From Motrin] AdvReac abdominal Verified 10/25/21 13:40 & muscle cramps indomethacin [From Indocin] AdvReac Abdominal Verified 10/25/21 13:40 Pain,N/V ketorolac tromethamine AdvReac "built up Verified 10/25/21 13:40 [From Toradol] in system", had to be given something to reverse lorazepam [From Ativan] AdvReac Nausea & Verified 10/25/21 13:40 Vomiting memantine [From Namenda] AdvReac Itching Verified 10/25/21 13:40 metoclopramide HCl AdvReac muscle Verified 10/25/21 13:40 [From Reglan] cramps nortriptyline [From Pamelor] AdvReac Chest Pain Verified 10/25/21 13:40 prasterone (DHEA) [From DHEA] AdvReac Chest Pain Verified 10/25/21 13:40 prochlorperazine AdvReac leg Verified 10/25/21 13:40 [From Compazine] cramping propranolol AdvReac Chest Pain Verified 10/25/21 13:40 pseudoephedrine HCl AdvReac face "beet Verified 10/25/21 13:40 [From NyQuil] red", elevated temp. quetiapine [From Seroquel] AdvReac leg Verified 10/25/21 13:40 cramping sumatriptan [From Imitrex] AdvReac migrane Verified 10/25/21 13:40 sumatriptan succinate AdvReac migrane Verified 10/25/21 13:40 [From Imitrex] topiramate [From Topamax] AdvReac "built up Verified 10/25/21 13:40 in system", had to be given something to reverse trazodone AdvReac "built up Verified 10/25/21 13:40 in system", had to be given something to reverse zolpidem tartrate AdvReac "Became Verified 10/25/21 13:40 [From Ambien] violent with no memory" zonisamide [From Zonegran] AdvReac inability Verified 10/25/21 13:40 to eat prosyn Allergy Itching Uncoded 10/25/21 13:40 artificial sweetener AdvReac SEVERE Uncoded 10/25/21 13:40 MIGRAINE HEADACHE Review of Systems ROS Statement: Those systems with pertinent positive or pertinent negative responses have been documented in the HPI. ROS Other: All systems not noted in ROS Statement are negative. Past Medical History Past Medical History: Hyperlipidemia, Hypertension, Seizure Disorder Additional Past Medical History / Comment(s): Migraines, viral meningitis x3 as a child, 1995, 2000, chronic back pain, nerve blocks 08/2016 and 12/2016. Last seizure 10/10/2020, "ABSENT SEIZURES. HX TACHYCARDIA, GBS/CIPD, PTSD. History of Any Multi-Drug Resistant Organisms: None Reported Past Surgical History: Appendectomy, Section, Cholecystectomy, Hernia Repair, Hysterectomy, Orthopedic Surgery, Tonsillectomy, Tubal Ligation Additional Past Surgical History / Comment(s): Hiatal Hernia, umbilical hernia repair, left rotator cuff repair, bilateral knee scopes, pain clinic procedures- occipital nerve block. abd exploratory sx(endometreosis), 3 abd scopes 1981, 1989, 1991), lumbar puncture. EGD. nerve biopsy, salvalry gland biospy Past Anesthesia/Blood Transfusion Reactions: No Reported Reaction Additional Past Anesthesia/Blood Transfusion Reaction / Comment(s): Claustrophobic Past Psychological History: Anxiety, Bipolar, Panic Disorder, PTSD Smoking Status: Current every day smoker Past Alcohol Use History: None Reported Past Drug Use History: None Reported - Past Family History Mother Family Medical History: Cancer, Dementia, Diabetes Mellitus, GERD/Reflux, Hyperlipidemia, Hypertension, Thyroid Disorder Additional Family Medical History / Comment(s): Quad CABG, cardiac stents, toes ampuated and left leg amputated Father History Unknown: Yes Family Medical History: No Reported History General Exam Limitations: no limitations General appearance: alert, in no apparent distress Head exam: Present: atraumatic, normocephalic, normal inspection Neck exam: Present: normal inspection, full ROM. Absent: tenderness, meningismus Respiratory exam: Present: normal lung sounds bilaterally. Absent: respiratory distress, accessory muscle use Cardiovascular Exam: Present: regular rate, normal rhythm, normal heart sounds GI/Abdominal exam: Present: soft. Absent: tenderness Extremities exam: Present: full ROM, normal capillary refill. Absent: tenderness Back exam: Absent: tenderness, CVA tenderness (R), CVA tenderness (L) Neurological exam: Present: alert, oriented X3, CN II-XII intact Expanded Patient oriented to: Present: person, place, time Speech: Present: fluid speech Cranial nerves: EOM's Intact: Normal, Gag Reflex: Normal, Tongue Deviation: Normal Motor strength exam: RUE: 5, LUE: 5, RLE: 4, LLE: 4 Eye Response: (4) open spontaneously Motor Response: (6) obeys commands Verbal Response: (5) oriented [place] Total: 15 Psychiatric exam: Present: normal affect, normal mood Skin exam: Present: warm, dry, intact, normal color. Absent: cyanosis, diaphoretic Course Vital Signs 10/25/21 10/25/21 13:37 14:40 Temperature 98.0 F 98.0 F Pulse Rate 91 86 Respiratory 18 18 Rate Blood Pressure 159/102 138/89 O2 Sat by Pulse 97 98 Oximetry Medical Decision Making - Medical Decision Making Sara presents with migraine headache similar to previous episodes. She states that she has been in contact with her neurologist and they are considering a new medication. She has been in the hospital 5 times in the past 10 days for her headaches. She denies any focal motor weakness. Denies any fevers. She states in the past she has received better relief with Stadol and Zofran versus dilaudid. She states that she does have a history of meningitis three times and these symptoms are not the same. 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 Patient has no concerns that this is anything other than her normal migraine headaches. She has no focal neurological deficits. She is agreeable to being discharged home after medication administration. Vital signs are stable. She was instructed to return to the emergency room with any new or concerning symptoms. Case discussed with Dr. Hein. Disposition Clinical Impression: Headache Disposition: HOME SELF-CARE Condition: Good Instructions (If sedation given, give patient instructions): Migraine Headache (ED) Additional Instructions: Continue your previously prescribed medications. Follow-up with your neurologist. Return to the emergency room with new or concerning symptoms. Is patient prescribed a controlled substance at d/c from ED?: No Referrals: José Reece MD [Primary Care Provider] - 1-2 days Time of Disposition: 14:08
[2021-10-25 15:01] VITALS: BP 138/89; PULSE 86
== END 2021-10-25 14:40 | disposition home or self-care (01) ==
LOC: EC 13:26
DX: R51.9 Headache, unspecified (principal); F17.200 Nicotine dependence, unspecified, uncomplicated; E78.5 Hyperlipidemia, unspecified; I10 Essential (primary) hypertension; Z86.69 Personal history of other diseases of the nervous system and sense organs; Z91.02 Food additives allergy status; Z88.8 Allergy status to other drugs, medicaments and biological substances; Z88.4 Allergy status to anesthetic agent; Z88.6 Allergy status to analgesic agent; Z88.1 Allergy status to other antibiotic agents; Z88.5 Allergy status to narcotic agent; Z88.0 Allergy status to penicillin; Z91.040 Latex allergy status; Z79.899 Other long term (current) drug therapy
CPT/HCPCS: 99283; 96372; J0595; J2405

== ENCOUNTER 2021-10-28 20:44 | Emergency (ER) | payer OTHER ==
[2021-10-28 20:55] VITALS: TEMP 98.3
[2021-10-28] MEDS ORDERED: BUTORPHANOL 1 MG/ML 1 ML VIAL IV STA ×3 (21:31→23:34)
[2021-10-28] MEDS ORDERED: ONDANSETRON 4 MG/2 ML VIAL IVP STA (21:34)
--- NOTE | 2021-10-28 23:29 | ED ---
Headache HPI - General Chief Complaint: Headache Stated Complaint: Headache Time Seen by Provider: 10/28/21 21:26 Mode of arrival: wheelchair Limitations: no limitations - History of Present Illness Initial Comments: Patient is a 51-year-old female who presents with history of migraines who presents to the emergency department with a chief complaint migraine headache. Patient has been evaluated several times in our emergency department for migraine headache this past month. States the migraine feels typical of her normal headaches. Reports nausea. States her abortive therapy is not working. States her neurologist at [facility] is currently researching new abortive therapy for her. Denies fever, chills, neck pain, chest pain, shortness of breath, abdominal pain, and other concerns. - Related Data Home Medications Medication Instructions Recorded Confirmed amLODIPine [Norvasc] 5 mg PO HS 04/28/20 09/14/21 Omeprazole [PriLOSEC] 20 mg PO BID 12/15/20 09/14/21 Thiamine [Vitamin B-1] 100 mg PO HS 01/04/21 09/14/21 Atorvastatin [Lipitor] 40 mg PO HS 07/20/21 09/14/21 DULoxetine HCL [Cymbalta] 60 mg PO HS 07/20/21 09/14/21 buprenorphine HCL [Subutex] 1 mg SUBLINGUAL TID 07/20/21 09/14/21 Previous Rx's Medication Instructions Recorded HYDROcodone/APAP 7.5-325MG [[place] 1 tab PO TID PRN #12 tab 11/17/20 7.5-325] Lacosamide [Vimpat] 100 mg PO BID 7 Days #14 tab 01/16/21 Ondansetron Odt [Zofran Odt] 4 mg PO Q8HR PRN #10 tab 10/24/21 Allergies Allergy/AdvReac Type Severity Reaction Status Date / Time dihydroergotamine Allergy Unknown Unknown Verified 10/25/21 13:40 [From Migranal] buprenorphine Allergy Rash/Hives Verified 10/25/21 13:40 gabapentin [From Neurontin] Allergy Itching/Swe Verified 10/25/21 13:40 lling latex Allergy Anaphylaxis Verified 10/30/21 11:52 naproxen [From Naprosyn] Allergy Anaphylaxis Verified 10/30/21 11:52 Penicillins Allergy Anaphylaxis Verified 10/30/21 11:52 prednisone Allergy Swelling Verified 10/30/21 11:52 quetiapine fumarate Allergy Itching, Verified 10/30/21 11:52 [From Seroquel] leg cramps rofecoxib [From Vioxx] Allergy Itching, Verified 10/30/21 11:52 leg cramps terfenadine [From Seldane] Allergy Rash/Hives Verified 10/30/21 11:52 tramadol Allergy Nausea & Verified 10/30/21 11:52 Vomiting/LEG CRAMPS/HEART FLUTTERS calcium carbonate [From DHEA] AdvReac Chest Pain Verified 10/30/21 11:52 calcium phosphate,dibasic AdvReac Chest Pain Verified 10/30/21 11:52 [From DHEA] clindamycin AdvReac muscle Verified 10/30/21 11:52 cramps clonidine AdvReac fast Verified 10/30/21 11:52 heartbeat, migraine dextromethorphan HBr AdvReac face/neck Verified 10/30/21 11:52 [From NyQuil] flushing diazepam [From Valium] AdvReac Nausea & Verified 10/25/21 13:40 Vomiting divalproex sodium AdvReac Nausea & Verified 10/30/21 11:52 [From Depakote] Vomiting doxylamine [From NyQuil] AdvReac face "beet Verified 10/30/21 11:52 red", elevated temp. ibuprofen [From Motrin] AdvReac abdominal Verified 10/30/21 11:52 & muscle cramps indomethacin [From Indocin] AdvReac Abdominal Verified 10/30/21 11:52 Pain,N/V ketorolac tromethamine AdvReac "built up Verified 10/30/21 11:52 [From Toradol] in system", had to be given something to reverse lorazepam [From Ativan] AdvReac Nausea & Verified 10/25/21 13:40 Vomiting memantine [From Namenda] AdvReac Itching Verified 10/30/21 11:52 metoclopramide HCl AdvReac muscle Verified 10/30/21 11:52 [From Reglan] cramps nortriptyline [From Pamelor] AdvReac Chest Pain Verified 10/30/21 11:52 prasterone (DHEA) [From DHEA] AdvReac Chest Pain Verified 10/30/21 11:52 prochlorperazine AdvReac leg Verified 10/30/21 11:52 [From Compazine] cramping propranolol AdvReac Chest Pain Verified 10/30/21 11:52 pseudoephedrine HCl AdvReac face "beet Verified 10/30/21 11:52 [From NyQuil] red", elevated temp. quetiapine [From Seroquel] AdvReac leg Verified 10/30/21 11:52 cramping sumatriptan [From Imitrex] AdvReac migrane Verified 10/30/21 11:52 sumatriptan succinate AdvReac migrane Verified 10/30/21 11:52 [From Imitrex] topiramate [From Topamax] AdvReac "built up Verified 10/30/21 11:52 in system", had to be given something to reverse trazodone AdvReac "built up Verified 10/30/21 11:52 in system", had to be given something to reverse zolpidem tartrate AdvReac "Became Verified 10/30/21 11:52 [From Ambien] violent with no memory" zonisamide [From Zonegran] AdvReac inability Verified 10/30/21 11:52 to eat prosyn Allergy Itching Uncoded 10/30/21 11:52 artificial sweetener AdvReac SEVERE Uncoded 10/30/21 11:52 MIGRAINE HEADACHE Review of Systems ROS Statement: Those systems with pertinent positive or pertinent negative responses have been documented in the HPI. ROS Other: All systems not noted in ROS Statement are negative. Past Medical History Past Medical History: Hyperlipidemia, Hypertension, Seizure Disorder Additional Past Medical History / Comment(s): Migraines, viral meningitis x3 as a child, 1995, 2000, chronic back pain, nerve blocks 08/2016 and 12/2016. Last seizure 10/10/2020, "ABSENT SEIZURES. HX TACHYCARDIA, GBS/CIPD, PTSD. History of Any Multi-Drug Resistant Organisms: None Reported Past Surgical History: Appendectomy, Section, Cholecystectomy, Hernia Repair, Hysterectomy, Orthopedic Surgery, Tonsillectomy, Tubal Ligation Additional Past Surgical History / Comment(s): Hiatal Hernia, umbilical hernia repair, left rotator cuff repair, bilateral knee scopes, pain clinic procedures- occipital nerve block. abd exploratory sx(endometreosis), 3 abd scopes 1981, 1989, 1991), lumbar puncture. EGD. nerve biopsy, salvalry gland biospy Past Anesthesia/Blood Transfusion Reactions: No Reported Reaction Additional Past Anesthesia/Blood Transfusion Reaction / Comment(s): Claustrophobic Past Psychological History: Anxiety, Bipolar, Panic Disorder, PTSD Smoking Status: Current every day smoker Past Alcohol Use History: None Reported Past Drug Use History: None Reported - Past Family History Mother Family Medical History: Cancer, Dementia, Diabetes Mellitus, GERD/Reflux, Hyperlipidemia, Hypertension, Thyroid Disorder Additional Family Medical History / Comment(s): Quad CABG, cardiac stents, toes ampuated and left leg amputated Father History Unknown: Yes Family Medical History: No Reported History General Exam Limitations: no limitations General appearance: alert, in no apparent distress Head exam: Present: atraumatic, normocephalic, normal inspection Eye exam: Present: normal appearance, PERRL, EOMI. Absent: scleral icterus, conjunctival injection, periorbital swelling Respiratory exam: Present: normal lung sounds bilaterally. Absent: respiratory distress, wheezes, rales, rhonchi, stridor Cardiovascular Exam: Present: regular rate, normal rhythm, normal heart sounds. Absent: systolic murmur, diastolic murmur, rubs, gallop, clicks GI/Abdominal exam: Present: soft, normal bowel sounds. Absent: distended, tenderness, guarding, rebound, rigid Neurological exam: Present: alert, oriented X3, CN II-XII intact Psychiatric exam: Present: normal affect, normal mood Skin exam: Present: warm, dry, intact, normal color. Absent: rash Course Vital Signs 10/28/21 10/29/21 20:54 00:18 Temperature 98.3 F Pulse Rate 104 H 94 Respiratory 16 18 Rate Blood Pressure 140/90 149/104 O2 Sat by Pulse 95 97 Oximetry Medical Decision Making - Medical Decision Making This is a 51-year-old female who presents for migraine headache. Thorough history and examination were performed. PERRL. Patient had recent brain CT and with no change of headache today, imaging today is unnecessary. Patient states Stadol and Zofran worked best for her symptoms which were given and did improve her symptoms. Patient and I discussed in detail that we need a better plan for her migraines. It is very important she follows up with her neurologist for better control of her migraines. She verbalizes understanding. Dr. An is my attending. Disposition Clinical Impression: Migraine headache Disposition: HOME SELF-CARE Condition: Good Instructions (If sedation given, give patient instructions): Migraine Headache (ED) Additional Instructions: Please follow up with your neurologist for better control of your migraines. Return to the emergency department if you experience new, concerning, or worsening symptoms. Is patient prescribed a controlled substance at d/c from ED?: No Referrals: José Reece MD [Primary Care Provider] - 1-2 days Time of Disposition: 23:29
[2021-10-28] MEDS ORDERED: BUTORPHANOL 1 MG/ML 1 ML VIAL IV ONE (23:45)
[2021-10-29 00:19] VITALS: BP 149/104; PULSE 94; RESP 18
== END 2021-10-29 00:19 | disposition home or self-care (01) ==
LOC: EC 20:44
DX: G43.909 Migraine, unspecified, not intractable, without status migrainosus (principal); E78.5 Hyperlipidemia, unspecified; I10 Essential (primary) hypertension; F17.200 Nicotine dependence, unspecified, uncomplicated; Z79.899 Other long term (current) drug therapy; Z88.8 Allergy status to other drugs, medicaments and biological substances; Z88.5 Allergy status to narcotic agent; Z88.9 Allergy status to unspecified drugs, medicaments and biological substances; Z91.040 Latex allergy status; Z88.6 Allergy status to analgesic agent; Z88.0 Allergy status to penicillin; Z88.1 Allergy status to other antibiotic agents; Z91.048 Other nonmedicinal substance allergy status; Z91.018 Allergy to other foods
CPT/HCPCS: 99283; 96374; 96375; 96376; J0595 ×2; J2405; J1642

== ENCOUNTER 2021-10-30 11:28 | Emergency (ER) | payer OTHER ==
[2021-10-30] MEDS ORDERED: diphenhydrAMINE 50 MG/ML 1 ML VIAL IVP STA (12:22)
[2021-10-30] MEDS ORDERED: SODIUM CHLORIDE 0.9% 1,000 ML IV ONE (12:22)
[2021-10-30] MEDS ORDERED: HYDROmorphone 1 MG/ML 1 ML SYRINGE IVP STA ×2 (12:22→14:26)
[2021-10-30] MEDS ORDERED: ONDANSETRON 4 MG/2 ML VIAL IVP STA (12:23)
[2021-10-30 13:17] VITALS: BP 146/94; PULSE 79; RESP 16; TEMP 98
--- NOTE | 2021-10-30 14:27 | ED ---
Headache HPI - General Chief Complaint: Headache Stated Complaint: Headache/vomiting Time Seen by Provider: 10/30/21 12:05 Mode of arrival: ambulatory - History of Present Illness Initial Comments: 51-year-old female with past history of hypertension, hyperlipidemia, migraines and seizure disorder presents to the emergency room with headache. Patient has been seen multiple times in our emergency room for similar complaint. Presents today stating that she's had the same headache for the past 15 days. She has been seen multiple times in our emergency room for this headache. She was also hospitalized at [facility] for continuous migraine and states that no treatment has helped her symptoms. She is currently undergoing evaluation by pain management 3 [facility]. Was recently just trialed on [employer] and states that it isn't helping. She denies any fevers. No new or worsening symptoms in comparison to her headaches. No recent head trauma. She is supposed to have a tele-visit with [facility] next week for further management. No fevers. No neck stiffness. No other alleviating, precipitating or modifying factors - Related Data Home Medications Medication Instructions Recorded Confirmed amLODIPine [Norvasc] 5 mg PO HS 04/28/20 09/14/21 Omeprazole [PriLOSEC] 20 mg PO BID 12/15/20 09/14/21 Thiamine [Vitamin B-1] 100 mg PO HS 01/04/21 09/14/21 Atorvastatin [Lipitor] 40 mg PO HS 07/20/21 09/14/21 DULoxetine HCL [Cymbalta] 60 mg PO HS 07/20/21 09/14/21 buprenorphine HCL [Subutex] 1 mg SUBLINGUAL TID 07/20/21 09/14/21 Previous Rx's Medication Instructions Recorded HYDROcodone/APAP 7.5-325MG [[place] 1 tab PO TID PRN #12 tab 11/17/20 7.5-325] Lacosamide [Vimpat] 100 mg PO BID 7 Days #14 tab 01/16/21 Ondansetron Odt [Zofran Odt] 4 mg PO Q8HR PRN #10 tab 10/24/21 Allergies Allergy/AdvReac Type Severity Reaction Status Date / Time dihydroergotamine Allergy Unknown Unknown Verified 10/25/21 13:40 [From Migranal] buprenorphine Allergy Rash/Hives Verified 10/25/21 13:40 gabapentin [From Neurontin] Allergy Itching/Swe Verified 10/25/21 13:40 lling latex Allergy Anaphylaxis Verified 10/30/21 11:52 naproxen [From Naprosyn] Allergy Anaphylaxis Verified 10/30/21 11:52 Penicillins Allergy Anaphylaxis Verified 10/30/21 11:52 prednisone Allergy Swelling Verified 10/30/21 11:52 quetiapine fumarate Allergy Itching, Verified 10/30/21 11:52 [From Seroquel] leg cramps rofecoxib [From Vioxx] Allergy Itching, Verified 10/30/21 11:52 leg cramps terfenadine [From Seldane] Allergy Rash/Hives Verified 10/30/21 11:52 tramadol Allergy Nausea & Verified 10/30/21 11:52 Vomiting/LEG CRAMPS/HEART FLUTTERS calcium carbonate [From DHEA] AdvReac Chest Pain Verified 10/30/21 11:52 calcium phosphate,dibasic AdvReac Chest Pain Verified 10/30/21 11:52 [From DHEA] clindamycin AdvReac muscle Verified 10/30/21 11:52 cramps clonidine AdvReac fast Verified 10/30/21 11:52 heartbeat, migraine dextromethorphan HBr AdvReac face/neck Verified 10/30/21 11:52 [From NyQuil] flushing diazepam [From Valium] AdvReac Nausea & Verified 10/25/21 13:40 Vomiting divalproex sodium AdvReac Nausea & Verified 10/30/21 11:52 [From Depakote] Vomiting doxylamine [From NyQuil] AdvReac face "beet Verified 10/30/21 11:52 red", elevated temp. ibuprofen [From Motrin] AdvReac abdominal Verified 10/30/21 11:52 & muscle cramps indomethacin [From Indocin] AdvReac Abdominal Verified 10/30/21 11:52 Pain,N/V ketorolac tromethamine AdvReac "built up Verified 10/30/21 11:52 [From Toradol] in system", had to be given something to reverse lorazepam [From Ativan] AdvReac Nausea & Verified 10/25/21 13:40 Vomiting memantine [From Namenda] AdvReac Itching Verified 10/30/21 11:52 metoclopramide HCl AdvReac muscle Verified 10/30/21 11:52 [From Reglan] cramps nortriptyline [From Pamelor] AdvReac Chest Pain Verified 10/30/21 11:52 prasterone (DHEA) [From DHEA] AdvReac Chest Pain Verified 10/30/21 11:52 prochlorperazine AdvReac leg Verified 10/30/21 11:52 [From Compazine] cramping propranolol AdvReac Chest Pain Verified 10/30/21 11:52 pseudoephedrine HCl AdvReac face "beet Verified 10/30/21 11:52 [From NyQuil] red", elevated temp. quetiapine [From Seroquel] AdvReac leg Verified 10/30/21 11:52 cramping sumatriptan [From Imitrex] AdvReac migrane Verified 10/30/21 11:52 sumatriptan succinate AdvReac migrane Verified 10/30/21 11:52 [From Imitrex] topiramate [From Topamax] AdvReac "built up Verified 10/30/21 11:52 in system", had to be given something to reverse trazodone AdvReac "built up Verified 10/30/21 11:52 in system", had to be given something to reverse zolpidem tartrate AdvReac "Became Verified 10/30/21 11:52 [From Ambien] violent with no memory" zonisamide [From Zonegran] AdvReac inability Verified 10/30/21 11:52 to eat prosyn Allergy Itching Uncoded 10/30/21 11:52 artificial sweetener AdvReac SEVERE Uncoded 10/30/21 11:52 MIGRAINE HEADACHE Review of Systems ROS Statement: Those systems with pertinent positive or pertinent negative responses have been documented in the HPI. ROS Other: All systems not noted in ROS Statement are negative. Past Medical History Past Medical History: Hyperlipidemia, Hypertension, Seizure Disorder Additional Past Medical History / Comment(s): Migraines, viral meningitis x3 as a child, 1995, 2000, chronic back pain, nerve blocks 08/2016 and 12/2016. Last seizure 10/10/2020, "ABSENT SEIZURES. HX TACHYCARDIA, GBS/CIPD, PTSD. History of Any Multi-Drug Resistant Organisms: None Reported Past Surgical History: Appendectomy, Section, Cholecystectomy, Hernia Repair, Hysterectomy, Orthopedic Surgery, Tonsillectomy, Tubal Ligation Additional Past Surgical History / Comment(s): Hiatal Hernia, umbilical hernia repair, left rotator cuff repair, bilateral knee scopes, pain clinic procedures- occipital nerve block. abd exploratory sx(endometreosis), 3 abd scopes 1981, , 1991), lumbar puncture. EGD. nerve biopsy, salvalry gland biospy Past Anesthesia/Blood Transfusion Reactions: No Reported Reaction Additional Past Anesthesia/Blood Transfusion Reaction / Comment(s): Claustrophobic Past Psychological History: Anxiety, Bipolar, Panic Disorder, PTSD Smoking Status: Current every day smoker Past Alcohol Use History: None Reported Past Drug Use History: None Reported - Past Family History Mother Family Medical History: Cancer, Dementia, Diabetes Mellitus, GERD/Reflux, Hyperlipidemia, Hypertension, Thyroid Disorder Additional Family Medical History / Comment(s): Quad CABG, cardiac stents, toes ampuated and left leg amputated Father History Unknown: Yes Family Medical History: No Reported History General Exam General appearance: alert, in no apparent distress Head exam: Present: atraumatic, normocephalic, normal inspection Eye exam: Present: normal appearance, PERRL, EOMI. Absent: scleral icterus, conjunctival injection, periorbital swelling ENT exam: Present: normal exam, mucous membranes moist Neck exam: Present: normal inspection. Absent: tenderness, meningismus, lymphadenopathy Respiratory exam: Present: normal lung sounds bilaterally. Absent: respiratory distress, wheezes, rales, rhonchi, stridor Cardiovascular Exam: Present: normal rhythm, tachycardia, normal heart sounds. Absent: systolic murmur, diastolic murmur, rubs, gallop, clicks GI/Abdominal exam: Present: soft, normal bowel sounds. Absent: distended, tenderness, guarding, rebound, rigid Extremities exam: Present: normal inspection, full ROM, normal capillary refill. Absent: tenderness, pedal edema, joint swelling, calf tenderness Back exam: Present: normal inspection Neurological exam: Present: alert, oriented X3, CN II-XII intact Psychiatric exam: Present: normal affect, normal mood Skin exam: Present: warm, dry, intact, normal color. Absent: rash Course Vital Signs 10/30/21 10/30/21 11:48 13:14 Temperature 98.3 F 98.0 F Pulse Rate 111 H 79 Respiratory 18 16 Rate Blood Pressure 138/95 146/94 O2 Sat by Pulse 100 99 Oximetry Medical Decision Making - Medical Decision Making Upon arrival patient was placed into hallway 11. Her port is accessed. Patient given migraine cocktail with reevaluation and does have improvement in her symptoms. She'll be discharged home. Stressed follow-up with primary care and pain management. Return for any new or worsening symptoms. Patient was discharged home in stable condition Disposition Clinical Impression: Migraine Disposition: HOME SELF-CARE Condition: Stable Instructions (If sedation given, give patient instructions): Acute Headache (ED) Additional Instructions: Please follow-up with [facility] for further management of your symptoms. Return for any new or worsening symptoms Is patient prescribed a controlled substance at d/c from ED?: No Referrals: José Reece MD [Primary Care Provider] - 1-2 days Time of Disposition: 14:27
== END 2021-10-30 14:47 | disposition home or self-care (01) ==
LOC: EC 11:28
DX: G43.909 Migraine, unspecified, not intractable, without status migrainosus (principal); I10 Essential (primary) hypertension; E78.5 Hyperlipidemia, unspecified; F41.9 Anxiety disorder, unspecified; F31.9 Bipolar disorder, unspecified; Z87.891 Personal history of nicotine dependence; Z91.018 Allergy to other foods; Z88.8 Allergy status to other drugs, medicaments and biological substances; Z88.5 Allergy status to narcotic agent; Z91.040 Latex allergy status; Z88.0 Allergy status to penicillin; Z88.6 Allergy status to analgesic agent; Z88.1 Allergy status to other antibiotic agents; Z91.09 Other allergy status, other than to drugs and biological substances; Z79.899 Other long term (current) drug therapy
CPT/HCPCS: 99283; 96374; 96375 ×2; 96376; 96361; J1200; J2405; J1170

== ENCOUNTER 2021-11-16 10:42 | Emergency (ER) | payer OTHER ==
[2021-11-16 10:46] VITALS: RESP 18; TEMP 98.3
[2021-11-16] MEDS ORDERED: diphenhydrAMINE 50 MG/ML 1 ML VIAL IM STA (11:31)
[2021-11-16] MEDS ORDERED: HYDROmorphone 1 MG/ML 1 ML SYRINGE IM STA (11:31)
[2021-11-16] MEDS ORDERED: ONDANSETRON 4 MG/2 ML VIAL IM STA (11:31)
--- NOTE | 2021-11-16 11:32 | ED ---
General Adult HPI - General Chief complaint: Headache Stated complaint: headache Time Seen by Provider: 11/16/21 11:01 Source: patient, RN notes reviewed Mode of arrival: ambulatory Limitations: no limitations - History of Present Illness Initial comments: This a 51-year-old female presents emergency department to complaint of headache. This chronic in nature. Patient is currently to neurology for this. Patient is well-known the emergency Department. She denies any fevers or chills no neck pain or neck stiffness. Patient denies any blurred vision or any focal weakness she does admit to nausea, vomiting. Patient has tried her emergency medications at home with no relief. Patient offers no other social complaints. - Related Data Home Medications Medication Instructions Recorded Confirmed amLODIPine [Norvasc] 5 mg PO HS 04/28/20 09/14/21 Omeprazole [PriLOSEC] 20 mg PO BID 12/15/20 09/14/21 Thiamine [Vitamin B-1] 100 mg PO HS 01/04/21 09/14/21 Atorvastatin [Lipitor] 40 mg PO HS 07/20/21 09/14/21 DULoxetine HCL [Cymbalta] 60 mg PO HS 07/20/21 09/14/21 buprenorphine HCL [Subutex] 1 mg SUBLINGUAL TID 07/20/21 09/14/21 Previous Rx's Medication Instructions Recorded HYDROcodone/APAP 7.5-325MG [[place] 1 tab PO TID PRN #12 tab 11/17/20 7.5-325] Lacosamide [Vimpat] 100 mg PO BID 7 Days #14 tab 01/16/21 Ondansetron Odt [Zofran Odt] 4 mg PO Q8HR PRN #10 tab 10/24/21 Allergies Allergy/AdvReac Type Severity Reaction Status Date / Time dihydroergotamine Allergy Unknown Unknown Verified 11/16/21 10:47 [From Migranal] buprenorphine Allergy Rash/Hives Verified 11/16/21 10:47 gabapentin [From Neurontin] Allergy Itching/Swe Verified 11/16/21 10:47 lling latex Allergy Anaphylaxis Verified 11/16/21 10:47 naproxen [From Naprosyn] Allergy Anaphylaxis Verified 11/16/21 10:47 Penicillins Allergy Anaphylaxis Verified 11/16/21 10:47 prednisone Allergy Swelling Verified 11/16/21 10:47 quetiapine fumarate Allergy Itching, Verified 11/16/21 10:47 [From Seroquel] leg cramps rofecoxib [From Vioxx] Allergy Itching, Verified 11/16/21 10:47 leg cramps terfenadine [From Seldane] Allergy Rash/Hives Verified 11/16/21 10:47 tramadol Allergy Nausea & Verified 11/16/21 10:47 Vomiting/LEG CRAMPS/HEART FLUTTERS calcium carbonate [From DHEA] AdvReac Chest Pain Verified 11/16/21 10:47 calcium phosphate,dibasic AdvReac Chest Pain Verified 11/16/21 10:47 [From DHEA] clindamycin AdvReac muscle Verified 11/16/21 10:47 cramps clonidine AdvReac fast Verified 11/16/21 10:47 heartbeat, migraine dextromethorphan HBr AdvReac face/neck Verified 11/16/21 10:47 [From NyQuil] flushing diazepam [From Valium] AdvReac Nausea & Verified 11/16/21 10:47 Vomiting divalproex sodium AdvReac Nausea & Verified 11/16/21 10:47 [From Depakote] Vomiting doxylamine [From NyQuil] AdvReac face "beet Verified 11/16/21 10:47 red", elevated temp. ibuprofen [From Motrin] AdvReac abdominal Verified 11/16/21 10:47 & muscle cramps indomethacin [From Indocin] AdvReac Abdominal Verified 11/16/21 10:47 Pain,N/V ketorolac tromethamine AdvReac "built up Verified 11/16/21 10:47 [From Toradol] in system", had to be given something to reverse lorazepam [From Ativan] AdvReac Nausea & Verified 11/16/21 10:47 Vomiting memantine [From Namenda] AdvReac Itching Verified 11/16/21 10:47 metoclopramide HCl AdvReac muscle Verified 11/16/21 10:47 [From Reglan] cramps nortriptyline [From Pamelor] AdvReac Chest Pain Verified 11/16/21 10:47 prasterone (DHEA) [From DHEA] AdvReac Chest Pain Verified 11/16/21 10:47 prochlorperazine AdvReac leg Verified 11/16/21 10:47 [From Compazine] cramping propranolol AdvReac Chest Pain Verified 11/16/21 10:47 pseudoephedrine HCl AdvReac face "beet Verified 11/16/21 10:47 [From NyQuil] red", elevated temp. quetiapine [From Seroquel] AdvReac leg Verified 11/16/21 10:47 cramping sumatriptan [From Imitrex] AdvReac migrane Verified 11/16/21 10:47 sumatriptan succinate AdvReac migrane Verified 11/16/21 10:47 [From Imitrex] topiramate [From Topamax] AdvReac "built up Verified 11/16/21 10:47 in system", had to be given something to reverse trazodone AdvReac "built up Verified 11/16/21 10:47 in system", had to be given something to reverse zolpidem tartrate AdvReac "Became Verified 11/16/21 10:47 [From Ambien] violent with no memory" zonisamide [From Zonegran] AdvReac inability Verified 11/16/21 10:47 to eat prosyn Allergy Itching Uncoded 11/16/21 10:47 artificial sweetener AdvReac SEVERE Uncoded 11/16/21 10:47 MIGRAINE HEADACHE Review of Systems ROS Statement: Those systems with pertinent positive or pertinent negative responses have been documented in the HPI. ROS Other: All systems not noted in ROS Statement are negative. Past Medical History Past Medical History: Hyperlipidemia, Hypertension, Seizure Disorder Additional Past Medical History / Comment(s): Migraines, viral meningitis x3 as a child, 1995, 2000, chronic back pain, nerve blocks 08/2016 and 12/2016. Last seizure 10/10/2020, "ABSENT SEIZURES. HX TACHYCARDIA, GBS/CIPD, PTSD. History of Any Multi-Drug Resistant Organisms: None Reported Past Surgical History: Appendectomy, Section, Cholecystectomy, Hernia Repair, Hysterectomy, Orthopedic Surgery, Tonsillectomy, Tubal Ligation Additional Past Surgical History / Comment(s): Hiatal Hernia, umbilical hernia repair, left rotator cuff repair, bilateral knee scopes, pain clinic procedures- occipital nerve block. abd exploratory sx(endometreosis), 3 abd scopes 1981, 199 0, 1991), lumbar puncture. EGD. nerve biopsy, salvalry gland biospy Past Anesthesia/Blood Transfusion Reactions: No Reported Reaction Additional Past Anesthesia/Blood Transfusion Reaction / Comment(s): Claustrophobic Past Psychological History: Anxiety, Bipolar, Panic Disorder, PTSD Smoking Status: Current every day smoker Past Alcohol Use History: None Reported Past Drug Use History: None Reported - Past Family History Mother Family Medical History: Cancer, Dementia, Diabetes Mellitus, GERD/Reflux, Hyperlipidemia, Hypertension, Thyroid Disorder Additional Family Medical History / Comment(s): Quad CABG, cardiac stents, toes ampuated and left leg amputated Father History Unknown: Yes Family Medical History: No Reported History General Exam Limitations: no limitations General appearance: alert, in no apparent distress Head exam: Present: atraumatic, normocephalic, normal inspection Eye exam: Present: normal appearance, PERRL, EOMI. Absent: scleral icterus, conjunctival injection, periorbital swelling ENT exam: Present: normal exam, normal oropharynx, mucous membranes moist Neck exam: Present: normal inspection, full ROM. Absent: tenderness, meningismus, lymphadenopathy Respiratory exam: Present: normal lung sounds bilaterally. Absent: respiratory distress, wheezes, rales, rhonchi, stridor Cardiovascular Exam: Present: regular rate, normal rhythm, normal heart sounds. Absent: systolic murmur, diastolic murmur, rubs, gallop, clicks Neurological exam: Present: alert, oriented X3, CN II-XII intact, reflexes normal. Absent: motor sensory deficit Skin exam: Present: warm, dry, intact, normal color. Absent: rash Course Vital Signs 11/16/21 11/16/21 10:44 12:10 Temperature 98.3 F Pulse Rate 110 H 90 Respiratory 18 18 Rate Blood Pressure 145/101 140/88 O2 Sat by Pulse 100 96 Oximetry Medical Decision Making - Medical Decision Making I did have a long discussion with the patient regarding her multiple visits emergency department did explain to her that she needs to follow up with neurology for further management of her chronic symptoms. She does understand this we discussed return parameters. Disposition Clinical Impression: Headache Disposition: HOME SELF-CARE Condition: Stable Instructions (If sedation given, give patient instructions): Acute Headache (ED) Additional Instructions: Please return to the Emergency Department if symptoms worsen or any other concerns. Is patient prescribed a controlled substance at d/c from ED?: No Referrals: José Reece MD [Primary Care Provider] - 1-2 days Time of Disposition: 11:32
[2021-11-16 12:13] VITALS: BP 140/88; PULSE 90
== END 2021-11-16 12:10 | disposition home or self-care (01) ==
LOC: EC 10:42
DX: R51.9 Headache, unspecified (principal); Z91.040 Latex allergy status; Z88.8 Allergy status to other drugs, medicaments and biological substances; Z88.9 Allergy status to unspecified drugs, medicaments and biological substances; Z91.048 Other nonmedicinal substance allergy status
CPT/HCPCS: J1200; J2405; J1170

== ENCOUNTER 2021-11-19 09:55 | Emergency (ER) | payer OTHER ==
[2021-11-19 10:17] VITALS: BP 138/90; PULSE 109; RESP 20; TEMP 98.6
--- NOTE | 2021-11-19 11:38 | ED ---
General Adult HPI - General Chief complaint: Headache Stated complaint: headache Time Seen by Provider: 11/19/21 11:13 Source: patient Mode of arrival: ambulatory Limitations: no limitations - History of Present Illness Initial comments: Dictation was produced using [employer] dictation software. please excuse any grammatical, word or spelling errors. Chief Complaint: 51-year-old male presents emergency department again for headache History of Present Illness:. 51-year-old female she presents emergency department again for headache. Patient has an extensive history of headaches. She sees multiple specialists. This is patient's 11th visit in the last 2 months to be evaluated for headache. Patient states that her headache feels like her usual headaches. She was seen here yesterday for headaches. She was seen here also 3 days ago for headaches. Patient states that she is here again because she feels like her headaches not improving. Denies any focal weakness. The ROS documented in this emergency department record has been reviewed and confirmed by me. Those systems with pertinent positive or negative responses galan ve been documented in the HPI. All other systems are other negative and/or noncontributory. PHYSICAL EXAM: General Impression: Alert and oriented x3, not in acute distress HEENT: Normocephalic atraumatic, extra-ocular movements intact, pupils equal and reactive to light bilaterally, mucous membranes moist. Cardiovascular: Heart regular rate and rhythm Chest: Able to complete full sentences, no retractions, no tachypnea Abdomen: abdomen soft, non-tender, non-distended, no organomegaly Musculoskeletal: Pulses present and equal in all extremities, no peripheral edema Motor: no focal deficits noted Neurological: CN II-XII grossly intact, no focal motor or sensory deficits noted Skin: Intact with no visualized rashes Psych: Normal affect and mood ED course: 51-year-old female presents emergency department for headache. Patient is well-known to emergency department. She is here frequently for headaches. I'm very familiar with the patient she appears to be at baseline. Patient reports that she does have pain specialist at the [facility]. Rx report was reviewed. Patient recently got 90 tabs of [place] [id number] monthly from [facility]. Most recently filled on 11/06/2021. Case is discussed with patient's pain clinic at [facility] in [place]. Spoke with staff there reports that patient is familiar and has a follow-up virtual visit within about a week. I requested that they follow up with patient either later today or tomorrow or some is possible. Discussed with patient that she has opiate use disorder and she needs to follow-up with her pain clinic. - Related Data Home Medications Medication Instructions Recorded Confirmed amLODIPine [Norvasc] 5 mg PO HS 04/28/20 09/14/21 Omeprazole [PriLOSEC] 20 mg PO BID 12/15/20 09/14/21 Thiamine [Vitamin B-1] 100 mg PO HS 01/04/21 09/14/21 Atorvastatin [Lipitor] 40 mg PO HS 07/20/21 09/14/21 DULoxetine HCL [Cymbalta] 60 mg PO HS 07/20/21 09/14/21 buprenorphine HCL [Subutex] 1 mg SUBLINGUAL TID 07/20/21 09/14/21 Previous Rx's Medication Instructions Recorded HYDROcodone/APAP 7.5-325MG [[place] 1 tab PO TID PRN #12 tab 11/17/20 7.5-325] Lacosamide [Vimpat] 100 mg PO BID 7 Days #14 tab 01/16/21 Ondansetron Odt [Zofran Odt] 4 mg PO Q8HR PRN #10 tab 10/24/21 Allergies Allergy/AdvReac Type Severity Reaction Status Date / Time dihydroergotamine Allergy Unknown Unknown Verified 11/18/21 22:04 [From Migranal] buprenorphine Allergy Rash/Hives Verified 11/18/21 22:04 gabapentin [From Neurontin] Allergy Itching/Swe Verified 11/18/21 22:04 lling latex Allergy Anaphylaxis Verified 11/18/21 22:04 naproxen [From Naprosyn] Allergy Anaphylaxis Verified 11/18/21 22:04 Penicillins Allergy Anaphylaxis Verified 11/18/21 22:04 prednisone Allergy Swelling Verified 11/18/21 22:04 quetiapine fumarate Allergy Itching, Verified 11/18/21 22:04 [From Seroquel] leg cramps rofecoxib [From Vioxx] Allergy Itching, Verified 11/18/21 22:04 leg cramps terfenadine [From Seldane] Allergy Rash/Hives Verified 11/18/21 22:04 tramadol Allergy Nausea & Verified 11/18/21 22:04 Vomiting/LEG CRAMPS/HEART FLUTTERS calcium carbonate [From DHEA] AdvReac Chest Pain Verified 11/18/21 22:04 calcium phosphate,dibasic AdvReac Chest Pain Verified 11/18/21 22:04 [From DHEA] clindamycin AdvReac muscle Verified 11/18/21 22:04 cramps clonidine AdvReac fast Verified 11/18/21 22:04 heartbeat, migraine dextromethorphan HBr AdvReac face/neck Verified 11/18/21 22:04 [From NyQuil] flushing diazepam [From Valium] AdvReac Nausea & Verified 11/18/21 22:04 Vomiting divalproex sodium AdvReac Nausea & Verified 11/18/21 22:04 [From Depakote] Vomiting doxylamine [From NyQuil] AdvReac face "beet Verified 11/18/21 22:04 red", elevated temp. ibuprofen [From Motrin] AdvReac abdominal Verified 11/18/21 22:04 & muscle cramps indomethacin [From Indocin] AdvReac Abdominal Verified 11/18/21 22:04 Pain,N/V ketorolac tromethamine AdvReac "built up Verified 11/18/21 22:04 [From Toradol] in system", had to be given something to reverse lorazepam [From Ativan] AdvReac Nausea & Verified 11/18/21 22:04 Vomiting memantine [From Namenda] AdvReac Itching Verified 11/18/21 22:04 metoclopramide HCl AdvReac muscle Verified 11/18/21 22:04 [From Reglan] cramps nortriptyline [From Pamelor] AdvReac Chest Pain Verified 11/18/21 22:04 prasterone (DHEA) [From DHEA] AdvReac Chest Pain Verified 11/18/21 22:04 prochlorperazine AdvReac leg Verified 11/18/21 22:04 [From Compazine] cramping propranolol AdvReac Chest Pain Verified 11/18/21 22:04 pseudoephedrine HCl AdvReac face "beet Verified 11/18/21 22:04 [From NyQuil] red", elevated temp. quetiapine [From Seroquel] AdvReac leg Verified 11/18/21 22:04 cramping sumatriptan [From Imitrex] AdvReac migrane Verified 11/18/21 22:04 sumatriptan succinate AdvReac migrane Verified 11/18/21 22:04 [From Imitrex] topiramate [From Topamax] AdvReac "built up Verified 11/18/21 22:04 in system", had to be given something to reverse trazodone AdvReac "built up Verified 11/18/21 22:04 in system", had to be given something to reverse zolpidem tartrate AdvReac "Became Verified 11/18/21 22:04 [From Ambien] violent with no memory" zonisamide [From Zonegran] AdvReac inability Verified 11/18/21 22:04 to eat prosyn Allergy Itching Uncoded 11/18/21 22:04 artificial sweetener AdvReac SEVERE Uncoded 11/18/21 22:04 MIGRAINE HEADACHE Review of Systems ROS Statement: Those systems with pertinent positive or pertinent negative responses have been documented in the HPI. ROS Other: All systems not noted in ROS Statement are negative. Past Medical History Past Medical History: Hyperlipidemia, Hypertension, Seizure Disorder Additional Past Medical History / Comment(s): Migraines, viral meningitis x3 as a child, 1995, 2000, chronic back pain, nerve blocks 08/2016 and 12/2016. Last seizure 10/10/2020, "ABSENT SEIZURES. HX TACHYCARDIA, GBS/CIPD, PTSD. History of Any Multi-Drug Resistant Organisms: None Reported Past Surgical History: Appendectomy, Section, Cholecystectomy, Hernia Repair, Hysterectomy, Orthopedic Surgery, Tonsillectomy, Tubal Ligation Additional Past Surgical History / Comment(s): Hiatal Hernia, umbilical hernia repair, left rotator cuff repair, bilateral knee scopes, pain clinic procedures- occipital nerve block. abd exploratory sx(endometreosis), 3 abd scopes 1981, 1989, 1991), lumbar puncture. EGD. nerve biopsy, salvalry gland biospy Past Anesthesia/Blood Transfusion Reactions: No Reported Reaction Additional Past Anesthesia/Blood Transfusion Reaction / Comment(s): Claustrophobic Past Psychological History: Anxiety, Bipolar, Panic Disorder, PTSD Smoking Status: Current every day smoker Past Alcohol Use History: None Reported Past Drug Use History: None Reported - Past Family History Mother Family Medical History: Cancer, Dementia, Diabetes Mellitus, GERD/Reflux, Hyperlipidemia, Hypertension, Thyroid Disorder Additional Family Medical History / Comment(s): Quad CABG, cardiac stents, toes ampuated and left leg amputated Father History Unknown: Yes Family Medical History: No Reported History General Exam Limitations: no limitations Course Vital Signs 11/19/21 10:15 Temperature 98.6 F Pulse Rate 109 H Respiratory 20 Rate Blood Pressure 138/90 O2 Sat by Pulse 98 Oximetry Disposition Clinical Impression: Opiate dependence Disposition: HOME SELF-CARE Condition: Good Instructions (If sedation given, give patient instructions): Opioid Use Disorder (ED) Additional Instructions: Follow-up with your pain specialist for your chronic pain. Is patient prescribed a controlled substance at d/c from ED?: No Referrals: José Reece MD [Primary Care Provider] - 1-2 days Time of Disposition: 13:45
[2021-11-19] MEDS ORDERED: SODIUM CHLORIDE 0.9% 1,000 ML IV STA (12:25)
== END 2021-11-19 13:53 | disposition home or self-care (01) ==
LOC: EC 09:55
DX: F11.20 Opioid dependence, uncomplicated (principal); E78.5 Hyperlipidemia, unspecified; I10 Essential (primary) hypertension; G40.909 Epilepsy, unspecified, not intractable, without status epilepticus; G43.909 Migraine, unspecified, not intractable, without status migrainosus; F31.9 Bipolar disorder, unspecified; F41.0 Panic disorder [episodic paroxysmal anxiety]; F43.10 Post-traumatic stress disorder, unspecified; F17.200 Nicotine dependence, unspecified, uncomplicated; Z79.899 Other long term (current) drug therapy; Z88.6 Allergy status to analgesic agent; Z91.040 Latex allergy status; Z88.8 Allergy status to other drugs, medicaments and biological substances; Z88.1 Allergy status to other antibiotic agents; Z88.5 Allergy status to narcotic agent; Z91.02 Food additives allergy status
CPT/HCPCS: 99283

== ENCOUNTER 2021-11-22 21:07 | Emergency (ER) | payer OTHER ==
[2021-11-22 22:20] VITALS: TEMP 97.8
[2021-11-22] MEDS ORDERED: ONDANSETRON 4 MG/2 ML VIAL IM STA (22:54)
[2021-11-22] MEDS ORDERED: HYDROmorphone 1 MG/ML 1 ML SYRINGE IM STA (22:54)
[2021-11-22] MEDS ORDERED: diphenhydrAMINE 50 MG/ML 1 ML VIAL IM STA (22:54)
--- NOTE | 2021-11-23 00:34 | ED ---
Headache HPI - General Chief Complaint: Headache Stated Complaint: Headache Time Seen by Provider: 11/22/21 22:24 Mode of arrival: ambulatory Limitations: no limitations - History of Present Illness Initial Comments: Patient is a 51-year-old female presenting with chief complaint of migraine. Patient has a history of migraines, states this migraine has been ongoing for about a month. She takes [place] as and several migraine medications at home, states that they have not been sufficient in alleviating her pain. Pain feels consistent with her regular migraines. Patient admits to photophobia, nausea, vomiting. No fever, chills, chest pain, shortness of breath, vision loss, hearing changes, nuchal rigidity, abdominal pain. - Related Data Home Medications Medication Instructions Recorded Confirmed amLODIPine [Norvasc] 5 mg PO HS 04/28/20 09/14/21 Omeprazole [PriLOSEC] 20 mg PO BID 12/15/20 09/14/21 Thiamine [Vitamin B-1] 100 mg PO HS 01/04/21 09/14/21 Atorvastatin [Lipitor] 40 mg PO HS 07/20/21 09/14/21 DULoxetine HCL [Cymbalta] 60 mg PO HS 07/20/21 09/14/21 buprenorphine HCL [Subutex] 1 mg SUBLINGUAL TID 07/20/21 09/14/21 Previous Rx's Medication Instructions Recorded HYDROcodone/APAP 7.5-325MG [[place] 1 tab PO TID PRN #12 tab 11/17/20 7.5-325] Lacosamide [Vimpat] 100 mg PO BID 7 Days #14 tab 01/16/21 Ondansetron Odt [Zofran Odt] 4 mg PO Q8HR PRN #10 tab 10/24/21 Allergies Allergy/AdvReac Type Severity Reaction Status Date / Time dihydroergotamine Allergy Unknown Unknown Verified 11/18/21 22:04 [From Migranal] buprenorphine Allergy Rash/Hives Verified 11/18/21 22:04 gabapentin [From Neurontin] Allergy Itching/Swe Verified 11/18/21 22:04 lling latex Allergy Anaphylaxis Verified 11/18/21 22:04 naproxen [From Naprosyn] Allergy Anaphylaxis Verified 11/18/21 22:04 Penicillins Allergy Anaphylaxis Verified 11/18/21 22:04 prednisone Allergy Swelling Verified 11/18/21 22:04 quetiapine fumarate Allergy Itching, Verified 11/18/21 22:04 [From Seroquel] leg cramps rofecoxib [From Vioxx] Allergy Itching, Verified 11/18/21 22:04 leg cramps terfenadine [From Seldane] Allergy Rash/Hives Verified 11/18/21 22:04 tramadol Allergy Nausea & Verified 11/18/21 22:04 Vomiting/LEG CRAMPS/HEART FLUTTERS calcium carbonate [From DHEA] AdvReac Chest Pain Verified 11/18/21 22:04 calcium phosphate,dibasic AdvReac Chest Pain Verified 11/18/21 22:04 [From DHEA] clindamycin AdvReac muscle Verified 11/18/21 22:04 cramps clonidine AdvReac fast Verified 11/18/21 22:04 heartbeat, migraine dextromethorphan HBr AdvReac face/neck Verified 11/18/21 22:04 [From NyQuil] flushing diazepam [From Valium] AdvReac Nausea & Verified 11/18/21 22:04 Vomiting divalproex sodium AdvReac Nausea & Verified 11/18/21 22:04 [From Depakote] Vomiting doxylamine [From NyQuil] AdvReac face "beet Verified 11/18/21 22:04 red", elevated temp. ibuprofen [From Motrin] AdvReac abdominal Verified 11/18/21 22:04 & muscle cramps indomethacin [From Indocin] AdvReac Abdominal Verified 11/18/21 22:04 Pain,N/V ketorolac tromethamine AdvReac "built up Verified 11/18/21 22:04 [From Toradol] in system", had to be given something to reverse lorazepam [From Ativan] AdvReac Nausea & Verified 11/18/21 22:04 Vomiting memantine [From Namenda] AdvReac Itching Verified 11/18/21 22:04 metoclopramide HCl AdvReac muscle Verified 11/18/21 22:04 [From Reglan] cramps nortriptyline [From Pamelor] AdvReac Chest Pain Verified 11/18/21 22:04 prasterone (DHEA) [From DHEA] AdvReac Chest Pain Verified 11/18/21 22:04 prochlorperazine AdvReac leg Verified 11/18/21 22:04 [From Compazine] cramping propranolol AdvReac Chest Pain Verified 11/18/21 22:04 pseudoephedrine HCl AdvReac face "beet Verified 11/18/21 22:04 [From NyQuil] red", elevated temp. quetiapine [From Seroquel] AdvReac leg Verified 11/18/21 22:04 cramping sumatriptan [From Imitrex] AdvReac migrane Verified 11/18/21 22:04 sumatriptan succinate AdvReac migrane Verified 11/18/21 22:04 [From Imitrex] topiramate [From Topamax] AdvReac "built up Verified 11/18/21 22:04 in system", had to be given something to reverse trazodone AdvReac "built up Verified 11/18/21 22:04 in system", had to be given something to reverse zolpidem tartrate AdvReac "Became Verified 11/18/21 22:04 [From Ambien] violent with no memory" zonisamide [From Zonegran] AdvReac inability Verified 11/18/21 22:04 to eat prosyn Allergy Itching Uncoded 11/18/21 22:04 artificial sweetener AdvReac SEVERE Uncoded 11/18/21 22:04 MIGRAINE HEADACHE Review of Systems ROS Statement: Those systems with pertinent positive or pertinent negative responses have been documented in the HPI. ROS Other: All systems not noted in ROS Statement are negative. Past Medical History Past Medical History: Hyperlipidemia, Hypertension, Seizure Disorder Additional Past Medical History / Comment(s): Migraines, viral meningitis x3 as a child, 1995, 2000, chronic back pain, nerve blocks 08/2016 and 12/2016. Last seizure 10/10/2020, "ABSENT SEIZURES. HX TACHYCARDIA, GBS/CIPD, PTSD. History of Any Multi-Drug Resistant Organisms: None Reported Past Surgical History: Appendectomy, Section, Cholecystectomy, Hernia Repair, Hysterectomy, Orthopedic Surgery, Tonsillectomy, Tubal Ligation Additional Past Surgical History / Comment(s): Hiatal Hernia, umbilical hernia repair, left rotator cuff repair, bilateral knee scopes, pain clinic procedures- occipital nerve block. abd exploratory sx(endometreosis), 3 abd scopes 1981, 1989, 1991), lumbar puncture. EGD. nerve biopsy, salvalry gland biospy Past Anesthesia/Blood Transfusion Reactions: No Reported Reaction Additional Past Anesthesia/Blood Transfusion Reaction / Comment(s): Claustrophobic Past Psychological History: Anxiety, Bipolar, Panic Disorder, PTSD Smoking Status: Current every day smoker Past Alcohol Use History: None Reported Past Drug Use History: None Reported - Past Family History Mother Family Medical History: Cancer, Dementia, Diabetes Mellitus, GERD/Reflux, Hyperlipidemia, Hypertension, Thyroid Disorder Additional Family Medical History / Comment(s): Quad CABG, cardiac stents, toes ampuated and left leg amputated Father History Unknown: Yes Family Medical History: No Reported History General Exam Limitations: no limitations General appearance: alert, in no apparent distress Head exam: Present: atraumatic, normocephalic, normal inspection Eye exam: Present: normal appearance, PERRL, EOMI. Absent: scleral icterus, periorbital swelling Neck exam: Present: normal inspection, full ROM Respiratory exam: Present: normal lung sounds bilaterally. Absent: respiratory distress, wheezes, rales, rhonchi, stridor Cardiovascular Exam: Present: regular rate, normal rhythm, normal heart sounds. Absent: systolic murmur, diastolic murmur, rubs, gallop, clicks Neurological exam: Present: alert, oriented X3, CN II-XII intact Expanded Patient oriented to: Present: person, place, time Speech: Present: fluid speech Cranial nerves: EOM's Intact: Normal Eye Response: (4) open spontaneously Motor Response: (6) obeys commands Verbal Response: (5) oriented [place] Total: 15 Psychiatric exam: Present: normal affect, normal mood Skin exam: Present: warm, dry, intact, normal color. Absent: rash Course Vital Signs 11/22/21 11/23/21 22:18 00:44 Temperature 97.8 F Pulse Rate 109 H 97 Respiratory 22 16 Rate Blood Pressure 158/108 130/87 O2 Sat by Pulse 95 99 Oximetry Medical Decision Making - Medical Decision Making Patient is a 51-year-old female history of migraines, presenting with chief complaint of headache. Patient states this migraine has been ongoing for the last month and she has been unable to achieve pain control with [place] sent home as well as several migraine medications. On examination there are no focal neurological deficits. Patient is given pain and nausea medication and reports improvement. Patient is instructed to follow-up with her specialists. Report back to ER if any new or worsening symptoms. Discussed return parameters answered all questions. Patient conveyed verbal understanding and agreed to the plan. I discussed this case with my attending Dr. Mclaughlin Disposition Clinical Impression: Migraine Disposition: HOME SELF-CARE Condition: Good Instructions (If sedation given, give patient instructions): Acute Headache (ED) Additional Instructions: Follow-up with PCP and neurologist. Report back to ER with any new or worsening symptoms. Is patient prescribed a controlled substance at d/c from ED?: No Referrals: José Reece MD [Primary Care Provider] - 1-2 days Time of Disposition: 00:34
[2021-11-23 00:44] VITALS: BP 130/87; PULSE 97; RESP 16
== END 2021-11-23 00:44 | disposition home or self-care (01) ==
LOC: EC 21:07
DX: G43.909 Migraine, unspecified, not intractable, without status migrainosus (principal); F17.200 Nicotine dependence, unspecified, uncomplicated; I10 Essential (primary) hypertension; E78.5 Hyperlipidemia, unspecified; Z91.040 Latex allergy status; Z88.0 Allergy status to penicillin; Z88.8 Allergy status to other drugs, medicaments and biological substances; Z88.5 Allergy status to narcotic agent; Z88.2 Allergy status to sulfonamides; Z88.6 Allergy status to analgesic agent
CPT/HCPCS: 96372; 99283; J1200; J2405; J1170

== ENCOUNTER 2021-12-18 20:56 | Emergency (ER) | payer OTHER ==
[2021-12-18 22:45] VITALS: BP 150/94; PULSE 81; RESP 16; TEMP 98
[2021-12-19] MEDS ORDERED: BUTORPHANOL 1 MG/ML 1 ML VIAL IM STA (01:43)
[2021-12-19] MEDS ORDERED: ONDANSETRON 4 MG/2 ML VIAL IM STA (01:44)
--- NOTE | 2021-12-19 01:48 | ED ---
General Adult HPI - General Chief complaint: Headache Stated complaint: Chest pain,headache Time Seen by Provider: 12/19/21 00:26 Source: patient, RN notes reviewed, old records reviewed Mode of arrival: ambulatory Limitations: no limitations - History of Present Illness Initial comments: 51-year-old female presenting for evaluation of headache. Patient has chronic headaches this is unchanged from baseline. 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 - Related Data Home Medications Medication Instructions Recorded Confirmed amLODIPine [Norvasc] 5 mg PO HS 04/28/20 09/14/21 Omeprazole [PriLOSEC] 20 mg PO BID 12/15/20 09/14/21 Thiamine [Vitamin B-1] 100 mg PO HS 01/04/21 09/14/21 Atorvastatin [Lipitor] 40 mg PO HS 07/20/21 09/14/21 DULoxetine HCL [Cymbalta] 60 mg PO HS 07/20/21 09/14/21 buprenorphine HCL [Subutex] 1 mg SUBLINGUAL TID 07/20/21 09/14/21 Previous Rx's Medication Instructions Recorded HYDROcodone/APAP 7.5-325MG [[place] 1 tab PO TID PRN #12 tab 11/17/20 7.5-325] Lacosamide [Vimpat] 100 mg PO BID 7 Days #14 tab 01/16/21 Ondansetron Odt [Zofran Odt] 4 mg PO Q8HR PRN #10 tab 10/24/21 Allergies Allergy/AdvReac Type Severity Reaction Status Date / Time dihydroergotamine Allergy Unknown Unknown Verified 12/18/21 22:41 [From Migranal] buprenorphine Allergy Rash/Hives Verified 12/18/21 22:41 gabapentin [From Neurontin] Allergy Itching/Swe Verified 12/18/21 22:41 lling latex Allergy Anaphylaxis Verified 12/18/21 22:41 naproxen [From Naprosyn] Allergy Anaphylaxis Verified 12/18/21 22:41 Penicillins Allergy Anaphylaxis Verified 12/18/21 22:41 prednisone Allergy Swelling Verified 12/18/21 22:41 quetiapine fumarate Allergy Itching, Verified 12/18/21 22:41 [From Seroquel] leg cramps rofecoxib [From Vioxx] Allergy Itching, Verified 12/18/21 22:41 leg cramps terfenadine [From Seldane] Allergy Rash/Hives Verified 12/18/21 22:41 tramadol Allergy Nausea & Verified 12/18/21 22:41 Vomiting/LEG CRAMPS/HEART FLUTTERS calcium carbonate [From DHEA] AdvReac Chest Pain Verified 12/18/21 22:41 calcium phosphate,dibasic AdvReac Chest Pain Verified 12/18/21 22:41 [From DHEA] clindamycin AdvReac muscle Verified 12/18/21 22:41 cramps clonidine AdvReac fast Verified 12/18/21 22:41 heartbeat, migraine dextromethorphan HBr AdvReac face/neck Verified 12/18/21 22:41 [From NyQuil] flushing diazepam [From Valium] AdvReac Nausea & Verified 12/18/21 22:41 Vomiting divalproex sodium AdvReac Nausea & Verified 12/18/21 22:41 [From Depakote] Vomiting doxylamine [From NyQuil] AdvReac face "beet Verified 12/18/21 22:41 red", elevated temp. ibuprofen [From Motrin] AdvReac abdominal Verified 12/18/21 22:41 & muscle cramps indomethacin [From Indocin] AdvReac Abdominal Verified 12/18/21 22:41 Pain,N/V ketorolac tromethamine AdvReac "built up Verified 12/18/21 22:41 [From Toradol] in system", had to be given something to reverse lorazepam [From Ativan] AdvReac Nausea & Verified 12/18/21 22:41 Vomiting memantine [From Namenda] AdvReac Itching Verified 12/18/21 22:41 metoclopramide HCl AdvReac muscle Verified 12/18/21 22:41 [From Reglan] cramps nortriptyline [From Pamelor] AdvReac Chest Pain Verified 12/18/21 22:41 prasterone (DHEA) [From DHEA] AdvReac Chest Pain Verified 12/18/21 22:41 prochlorperazine AdvReac leg Verified 12/18/21 22:41 [From Compazine] cramping propranolol AdvReac Chest Pain Verified 12/18/21 22:41 pseudoephedrine HCl AdvReac face "beet Verified 12/18/21 22:41 [From NyQuil] red", elevated temp. quetiapine [From Seroquel] AdvReac leg Verified 12/18/21 22:41 cramping sumatriptan [From Imitrex] AdvReac migrane Verified 12/18/21 22:41 sumatriptan succinate AdvReac migrane Verified 12/18/21 22:41 [From Imitrex] topiramate [From Topamax] AdvReac "built up Verified 12/18/21 22:41 in system", had to be given something to reverse trazodone AdvReac "built up Verified 12/18/21 22:41 in system", had to be given something to reverse zolpidem tartrate AdvReac "Became Verified 12/18/21 22:41 [From Ambien] violent with no memory" zonisamide [From Zonegran] AdvReac inability Verified 12/18/21 22:41 to eat prosyn Allergy Itching Uncoded 12/18/21 22:41 artificial sweetener AdvReac SEVERE Uncoded 12/18/21 22:41 MIGRAINE HEADACHE Review of Systems ROS Statement: Those systems with pertinent positive or pertinent negative responses have been documented in the HPI. ROS Other: All systems not noted in ROS Statement are negative. Past Medical History Past Medical History: Hyperlipidemia, Hypertension, Seizure Disorder Additional Past Medical History / Comment(s): Migraines, viral meningitis x3 as a child, 1995, 2000, chronic back pain, nerve blocks 08/2016 and 12/2016. Last seizure 10/10/2020, "ABSENT SEIZURES. HX TACHYCARDIA, GBS/CIPD, PTSD. History of Any Multi-Drug Resistant Organisms: None Reported Past Surgical History: Appendectomy, Section, Cholecystectomy, Hernia Repair, Hysterectomy, Orthopedic Surgery, Tonsillectomy, Tubal Ligation Additional Past Surgical History / Comment(s): Hiatal Hernia, umbilical hernia repair, left rotator cuff repair, bilateral knee scopes, pain clinic procedures- occipital nerve block. abd exploratory sx(endometreosis), 3 abd scopes 1981, 1989, 1991), lumbar puncture. EGD. nerve biopsy, salvalry gland biospy Past Anesthesia/Blood Transfusion Reactions: No Reported Reaction Additional Past Anesthesia/Blood Transfusion Reaction / Comment(s): Claustrophobic Past Psychological History: Anxiety, Bipolar, Panic Disorder, PTSD Smoking Status: Current every day smoker Past Alcohol Use History: None Reported Past Drug Use History: None Reported - Past Family History Mother Family Medical History: Cancer, Dementia, Diabetes Mellitus, GERD/Reflux, Hyperlipidemia, Hypertension, Thyroid Disorder Additional Family Medical History / Comment(s): Quad CABG, cardiac stents, toes ampuated and left leg amputated Father History Unknown: Yes Family Medical History: No Reported History General Exam Limitations: no limitations General appearance: alert, in no apparent distress Head exam: Present: atraumatic, normocephalic Eye exam: Present: normal appearance, PERRL ENT exam: Present: normal exam Neck exam: Present: normal inspection. Absent: tenderness, meningismus Respiratory exam: Present: normal lung sounds bilaterally. Absent: respiratory distress, wheezes Cardiovascular Exam: Present: regular rate, normal rhythm GI/Abdominal exam: Present: soft. Absent: distended, tenderness, guarding Extremities exam: Present: normal inspection, normal capillary refill Neurological exam: Present: alert, oriented X3, CN II-XII intact. Absent: reflexes normal Psychiatric exam: Present: normal affect, normal mood Skin exam: Present: warm, dry, intact Course Vital Signs 12/18/21 22:41 Temperature 98 F Pulse Rate 81 Respiratory 16 Rate Blood Pressure 150/94 O2 Sat by Pulse 98 Oximetry Medical Decision Making - Medical Decision Making 51-year-old female with chronic headache. Patient treated with intramuscular Zofran and Stadol. Patient stable vitals. Normal respirations. Disposition Clinical Impression: Paresthesia of bilateral legs, Headache Disposition: HOME SELF-CARE Condition: Fair Instructions (If sedation given, give patient instructions): Chronic Pain (ED) Is patient prescribed a controlled substance at d/c from ED?: No Referrals: José Reece MD [Primary Care Provider] - 1-2 days Time of Disposition: 01:48
== END 2021-12-19 02:24 | disposition home or self-care (01) ==
LOC: EC 20:56
DX: R20.2 Paresthesia of skin (principal); R51.9 Headache, unspecified; I10 Essential (primary) hypertension; E78.5 Hyperlipidemia, unspecified; F17.200 Nicotine dependence, unspecified, uncomplicated; Z88.0 Allergy status to penicillin; Z91.040 Latex allergy status; Z88.8 Allergy status to other drugs, medicaments and biological substances; Z79.899 Other long term (current) drug therapy
CPT/HCPCS: 96372; 99283; J0595; J2405

== ENCOUNTER 2021-12-24 20:36 | Emergency (ER) | payer OTHER ==
[2021-12-24 21:14] VITALS: BP 156/93; PULSE 112; RESP 20
[2021-12-25] MEDS ORDERED: HYDROmorphone 1 MG/ML 1 ML SYRINGE IM STA (00:49)
[2021-12-25] MEDS ORDERED: diphenhydrAMINE 50 MG CAP PO STA (00:50)
[2021-12-25] MEDS ORDERED: ONDANSETRON 4 MG TAB PO STA (00:55)
--- NOTE | 2021-12-25 00:56 | ED ---
Headache HPI - General Chief Complaint: Headache Stated Complaint: Migraine,NV,Fever Time Seen by Provider: 12/25/21 00:54 Source: RN notes reviewed, old records reviewed Mode of arrival: ambulatory Limitations: no limitations - History of Present Illness Initial Comments: This is a 51-year-old female well-known to our ER for recurrent migraine headaches. Significant migraine here in the area. Positive nausea. No vomiting severely stone. Patient states she can't keep down medication home no trauma no fever MD Complaint: headache, "migraine" -: hour(s) Onset Description: gradual Location: right, left, temporal Severity: moderate Severity scale (1-10): 4 Quality: throbbing, pulsatile Consistency: constant Improves With: nothing Worsens With: none Context: occurred at rest Associated Symptoms: nausea Treatments Prior to Arrival: none - Related Data Home Medications Medication Instructions Recorded Confirmed amLODIPine [Norvasc] 5 mg PO HS 04/28/20 09/14/21 Omeprazole [PriLOSEC] 20 mg PO BID 12/15/20 09/14/21 Thiamine [Vitamin B-1] 100 mg PO HS 01/04/21 09/14/21 Atorvastatin [Lipitor] 40 mg PO HS 07/20/21 09/14/21 DULoxetine HCL [Cymbalta] 60 mg PO HS 07/20/21 09/14/21 buprenorphine HCL [Subutex] 1 mg SUBLINGUAL TID 07/20/21 09/14/21 Previous Rx's Medication Instructions Recorded HYDROcodone/APAP 7.5-325MG [[place] 1 tab PO TID PRN #12 tab 11/17/20 7.5-325] Lacosamide [Vimpat] 100 mg PO BID 7 Days #14 tab 01/16/21 Ondansetron Odt [Zofran Odt] 4 mg PO Q8HR PRN #10 tab 10/24/21 Allergies Allergy/AdvReac Type Severity Reaction Status Date / Time dihydroergotamine Allergy Unknown Unknown Verified 12/24/21 21:14 [From Migranal] buprenorphine Allergy Rash/Hives Verified 12/24/21 21:14 gabapentin [From Neurontin] Allergy Itching/Swe Verified 12/24/21 21:14 lling latex Allergy Anaphylaxis Verified 12/24/21 21:14 naproxen [From Naprosyn] Allergy Anaphylaxis Verified 12/24/21 21:14 Penicillins Allergy Anaphylaxis Verified 12/24/21 21:14 prednisone Allergy Swelling Verified 12/24/21 21:14 quetiapine fumarate Allergy Itching, Verified 12/24/21 21:14 [From Seroquel] leg cramps rofecoxib [From Vioxx] Allergy Itching, Verified 12/24/21 21:14 leg cramps terfenadine [From Seldane] Allergy Rash/Hives Verified 12/24/21 21:14 tramadol Allergy Nausea & Verified 12/24/21 21:14 Vomiting/LEG CRAMPS/HEART FLUTTERS calcium carbonate [From DHEA] AdvReac Chest Pain Verified 12/24/21 21:14 calcium phosphate,dibasic AdvReac Chest Pain Verified 12/24/21 21:14 [From DHEA] clindamycin AdvReac muscle Verified 12/24/21 21:14 cramps clonidine AdvReac fast Verified 12/24/21 21:14 heartbeat, migraine dextromethorphan HBr AdvReac face/neck Verified 12/24/21 21:14 [From NyQuil] flushing diazepam [From Valium] AdvReac Nausea & Verified 12/24/21 21:14 Vomiting divalproex sodium AdvReac Nausea & Verified 12/24/21 21:14 [From Depakote] Vomiting doxylamine [From NyQuil] AdvReac face "beet Verified 12/24/21 21:14 red", elevated temp. ibuprofen [From Motrin] AdvReac abdominal Verified 12/24/21 21:14 & muscle cramps indomethacin [From Indocin] AdvReac Abdominal Verified 12/24/21 21:14 Pain,N/V ketorolac tromethamine AdvReac "built up Verified 12/24/21 21:14 [From Toradol] in system", had to be given something to reverse lorazepam [From Ativan] AdvReac Nausea & Verified 12/24/21 21:14 Vomiting memantine [From Namenda] AdvReac Itching Verified 12/24/21 21:14 metoclopramide HCl AdvReac muscle Verified 12/24/21 21:14 [From Reglan] cramps nortriptyline [From Pamelor] AdvReac Chest Pain Verified 12/24/21 21:14 prasterone (DHEA) [From DHEA] AdvReac Chest Pain Verified 12/24/21 21:14 prochlorperazine AdvReac leg Verified 12/24/21 21:14 [From Compazine] cramping propranolol AdvReac Chest Pain Verified 12/24/21 21:14 pseudoephedrine HCl AdvReac face "beet Verified 12/24/21 21:14 [From NyQuil] red", elevated temp. quetiapine [From Seroquel] AdvReac leg Verified 12/24/21 21:14 cramping sumatriptan [From Imitrex] AdvReac migrane Verified 12/24/21 21:14 sumatriptan succinate AdvReac migrane Verified 12/24/21 21:14 [From Imitrex] topiramate [From Topamax] AdvReac "built up Verified 12/24/21 21:14 in system", had to be given something to reverse trazodone AdvReac "built up Verified 12/24/21 21:14 in system", had to be given something to reverse zolpidem tartrate AdvReac "Became Verified 12/24/21 21:14 [From Ambien] violent with no memory" zonisamide [From Zonegran] AdvReac inability Verified 12/24/21 21:14 to eat prosyn Allergy Itching Uncoded 12/24/21 21:14 artificial sweetener AdvReac SEVERE Uncoded 12/24/21 21:14 MIGRAINE HEADACHE Review of Systems ROS Statement: Those systems with pertinent positive or pertinent negative responses have been documented in the HPI. ROS Other: All systems not noted in ROS Statement are negative. Past Medical History Past Medical History: Hyperlipidemia, Hypertension, Seizure Disorder Additional Past Medical History / Comment(s): Migraines, viral meningitis x3 as a child, 1995, 2000, chronic back pain, nerve blocks 08/2016 and 12/2016. Last seizure 10/10/2020, "ABSENT SEIZURES. HX TACHYCARDIA, GBS/CIPD, PTSD. History of Any Multi-Drug Resistant Organisms: None Reported Past Surgical History: Appendectomy, Section, Cholecystectomy, Hernia Repair, Hysterectomy, Orthopedic Surgery, Tonsillectomy, Tubal Ligation Additional Past Surgical History / Comment(s): Hiatal Hernia, umbilical hernia repair, left rotator cuff repair, bilateral knee scopes, pain clinic procedures- occipital nerve block. abd exploratory sx(endometreosis), 3 abd scopes 1981, 1989, 1991), lumbar puncture. EGD. nerve biopsy, salvalry gland biospy Past Anesthesia/Blood Transfusion Reactions: No Reported Reaction Additional Past Anesthesia/Blood Transfusion Reaction / Comment(s): Claustrophobic Past Psychological History: Anxiety, Bipolar, Panic Disorder, PTSD Smoking Status: Current every day smoker Past Alcohol Use History: None Reported Past Drug Use History: None Reported - Past Family History Mother Family Medical History: Cancer, Dementia, Diabetes Mellitus, GERD/Reflux, Hyperlipidemia, Hypertension, Thyroid Disorder Additional Family Medical History / Comment(s): Quad CABG, cardiac stents, toes ampuated and left leg amputated Father History Unknown: Yes Family Medical History: No Reported History General Exam Limitations: no limitations General appearance: alert, in no apparent distress Head exam: Present: atraumatic, normocephalic, normal inspection Eye exam: Present: normal appearance, PERRL, EOMI. Absent: scleral icterus, conjunctival injection, periorbital swelling ENT exam: Present: normal exam, mucous membranes moist Neck exam: Present: normal inspection. Absent: tenderness, meningismus, lymphadenopathy Respiratory exam: Present: normal lung sounds bilaterally. Absent: respiratory distress, wheezes, rales, rhonchi, stridor Cardiovascular Exam: Present: regular rate, normal rhythm, normal heart sounds. Absent: systolic murmur, diastolic murmur, rubs, gallop, clicks GI/Abdominal exam: Present: soft, normal bowel sounds. Absent: distended, tenderness, guarding, rebound, rigid Extremities exam: Present: normal inspection, full ROM, normal capillary refill. Absent: tenderness, pedal edema, joint swelling, calf tenderness Back exam: Present: normal inspection Neurological exam: Present: alert, oriented X3, CN II-XII intact Psychiatric exam: Present: normal affect, normal mood Skin exam: Present: warm, dry, intact, normal color. Absent: rash Course Vital Signs 12/24/21 12/25/21 21:12 01:55 Temperature 98.2 F 98.8 F Pulse Rate 112 H Respiratory 20 Rate Blood Pressure 156/93 O2 Sat by Pulse 95 Oximetry - Reevaluation(s) Reevaluation #1: 12/25/21 Medical records reviewed Reevaluation #2: 12/25/21 Patient symptoms are improved Reevaluation #3: 12/25/21 Patient informed of findings and questions are answered Medical Decision Making - Medical Decision Making 72 female Anay with recurrent migraine headache. Headache resolved here in the ER patient can be discharged home Disposition Clinical Impression: Nausea and vomiting, Headache, Migraine Disposition: HOME SELF-CARE Condition: Fair Instructions (If sedation given, give patient instructions): Acute Headache (ED) Is patient prescribed a controlled substance at d/c from ED?: No Referrals: José Reece MD [Primary Care Provider] - 1-2 days Time of Disposition: 01:30
[2021-12-25 01:56] VITALS: TEMP 98.8
== END 2021-12-25 02:36 | disposition home or self-care (01) ==
LOC: EC 20:36
DX: R11.2 Nausea with vomiting, unspecified (principal); G43.909 Migraine, unspecified, not intractable, without status migrainosus; I10 Essential (primary) hypertension; E78.5 Hyperlipidemia, unspecified; G40.909 Epilepsy, unspecified, not intractable, without status epilepticus; F41.9 Anxiety disorder, unspecified; F31.9 Bipolar disorder, unspecified; F17.200 Nicotine dependence, unspecified, uncomplicated; Z79.83 Long term (current) use of bisphosphonates; Z79.899 Other long term (current) drug therapy; Z88.0 Allergy status to penicillin; Z88.5 Allergy status to narcotic agent; Z88.6 Allergy status to analgesic agent; Z91.040 Latex allergy status; Z88.8 Allergy status to other drugs, medicaments and biological substances
CPT/HCPCS: 99283 ×2; 96372 ×2; J1170

== ENCOUNTER 2022-01-20 17:37 | Emergency (ER) | payer OTHER ==
[2022-01-20 17:54] VITALS: BP 118/87; PULSE 126; RESP 18; TEMP 98.5
[2022-01-20] MEDS ORDERED: ALBUTEROL NEBULIZED 2.5 MG/3 ML INHALATION STA (18:19)
[2022-01-20] MEDS ORDERED: SODIUM CHLORIDE 0.9% 1,000 ML IV STA ×2 (18:36)
[2022-01-20] MEDS ORDERED: diphenhydrAMINE 50 MG/ML 1 ML VIAL IVP STA (18:37)
[2022-01-20] MEDS ORDERED: HYDROmorphone 1 MG/ML 1 ML SYRINGE IVP STA (18:37)
[2022-01-20] MEDS ORDERED: METOCLOPRAMIDE 5 MG/ML 2 ML VIAL IVP STA (18:38)
--- NOTE | 2022-01-20 18:41 | ED ---
Headache HPI <Joni Mclaughlin - Last Filed: 01/20/22 22:04> - General Source: patient, family, RN notes reviewed, old records reviewed Mode of arrival: wheelchair Limitations: no limitations - History of Present Illness MD Complaint: headache, "migraine", other <MannieGreg - Last Filed: 01/23/22 07:17> - General Chief Complaint: Headache Stated Complaint: Seizures,headache,vomiting Time Seen by Provider: 01/20/22 18:24 - History of Present Illness Initial Comments: 50-year-old female history of migraine headaches and petit mal seizures who states she's had a headache for the past 2 days worse than her usual headache by slight. Patient also states she's been throwing up all day with nausea vomiting and some diarrhea decreased oral intake lightheadedness dizziness upon trying to ambulate. Also she states she's had 3 petit mal seizures today. She has not had any Vimpat recently. No other current place modifying factors she has taken Zofran at home without any relief as well as other medications. (Greg Chand) - Related Data Home Medications Medication Instructions Recorded Confirmed amLODIPine [Norvasc] 5 mg PO HS 04/28/20 09/14/21 Omeprazole [PriLOSEC] 20 mg PO BID 12/15/20 09/14/21 Thiamine [Vitamin B-1] 100 mg PO HS 01/04/21 09/14/21 Atorvastatin [Lipitor] 40 mg PO HS 07/20/21 09/14/21 DULoxetine HCL [Cymbalta] 60 mg PO HS 07/20/21 09/14/21 buprenorphine HCL [Subutex] 1 mg SUBLINGUAL TID 07/20/21 09/14/21 Previous Rx's Medication Instructions Recorded HYDROcodone/APAP 7.5-325MG [[place] 1 tab PO TID PRN #12 tab 11/17/20 7.5-325] Lacosamide [Vimpat] 100 mg PO BID 7 Days #14 tab 01/16/21 Ondansetron Odt [Zofran Odt] 4 mg PO Q8HR PRN #10 tab 10/24/21 Allergies Allergy/AdvReac Type Severity Reaction Status Date / Time dihydroergotamine Allergy Unknown Unknown Verified 01/20/22 17:54 [From Migranal] buprenorphine Allergy Rash/Hives Verified 01/20/22 17:54 gabapentin [From Neurontin] Allergy Itching/Swe Verified 01/20/22 17:54 lling latex Allergy Anaphylaxis Verified 01/20/22 17:54 naproxen [From Naprosyn] Allergy Anaphylaxis Verified 01/20/22 17:54 Penicillins Allergy Anaphylaxis Verified 01/20/22 17:54 prednisone Allergy Swelling Verified 01/20/22 17:54 quetiapine fumarate Allergy Itching, Verified 01/20/22 17:54 [From Seroquel] leg cramps rofecoxib [From Vioxx] Allergy Itching, Verified 01/20/22 17:54 leg cramps terfenadine [From Seldane] Allergy Rash/Hives Verified 01/20/22 17:54 tramadol Allergy Nausea & Verified 01/20/22 17:54 Vomiting/LEG CRAMPS/HEART FLUTTERS calcium carbonate [From DHEA] AdvReac Chest Pain Verified 01/20/22 17:54 calcium phosphate,dibasic AdvReac Chest Pain Verified 01/20/22 17:54 [From DHEA] clindamycin AdvReac muscle Verified 01/20/22 17:54 cramps clonidine AdvReac fast Verified 01/20/22 17:54 heartbeat, migraine dextromethorphan HBr AdvReac face/neck Verified 01/20/22 17:54 [From NyQuil] flushing diazepam [From Valium] AdvReac Nausea & Verified 01/20/22 17:54 Vomiting divalproex sodium AdvReac Nausea & Verified 01/20/22 17:54 [From Depakote] Vomiting doxylamine [From NyQuil] AdvReac face "beet Verified 01/20/22 17:54 red", elevated temp. ibuprofen [From Motrin] AdvReac abdominal Verified 01/20/22 17:54 & muscle cramps indomethacin [From Indocin] AdvReac Abdominal Verified 01/20/22 17:54 Pain,N/V ketorolac tromethamine AdvReac "built up Verified 01/20/22 17:54 [From Toradol] in system", had to be given something to reverse lorazepam [From Ativan] AdvReac Nausea & Verified 01/20/22 17:54 Vomiting memantine [From Namenda] AdvReac Itching Verified 01/20/22 17:54 metoclopramide HCl AdvReac muscle Verified 01/20/22 17:54 [From Reglan] cramps nortriptyline [From Pamelor] AdvReac Chest Pain Verified 01/20/22 17:54 prasterone (DHEA) [From DHEA] AdvReac Chest Pain Verified 01/20/22 17:54 prochlorperazine AdvReac leg Verified 01/20/22 17:54 [From Compazine] cramping propranolol AdvReac Chest Pain Verified 01/20/22 17:54 pseudoephedrine HCl AdvReac face "beet Verified 01/20/22 17:54 [From NyQuil] red", elevated temp. quetiapine [From Seroquel] AdvReac leg Verified 01/20/22 17:54 cramping sumatriptan [From Imitrex] AdvReac migrane Verified 01/20/22 17:54 sumatriptan succinate AdvReac migrane Verified 01/20/22 17:54 [From Imitrex] topiramate [From Topamax] AdvReac "built up Verified 01/20/22 17:54 in system", had to be given something to reverse trazodone AdvReac "built up Verified 01/20/22 17:54 in system", had to be given something to reverse zolpidem tartrate AdvReac "Became Verified 01/20/22 17:54 [From Ambien] violent with no memory" zonisamide [From Zonegran] AdvReac inability Verified 01/20/22 17:54 to eat prosyn Allergy Itching Uncoded 01/20/22 17:54 artificial sweetener AdvReac SEVERE Uncoded 01/20/22 17:54 MIGRAINE HEADACHE Review of Systems ROS Other: All systems not noted in ROS Statement are negative. <Joni Mclaughlin - Last Filed: 01/20/22 22:04> ROS Other: All systems not noted in ROS Statement are negative. <Greg Chand - Last Filed: 01/23/22 07:17> ROS Statement: Those systems with pertinent positive or pertinent negative responses have been documented in the HPI. Past Medical History Past Medical History: Hyperlipidemia, Hypertension, Seizure Disorder Additional Past Medical History / Comment(s): Migraines, viral meningitis x3 as a child, 1995, 2000, chronic back pain, nerve blocks 08/2016 and 12/2016. Last seizure 10/10/2020, "ABSENT SEIZURES. HX TACHYCARDIA, GBS/CIPD, PTSD. History of Any Multi-Drug Resistant Organisms: None Reported Past Surgical History: Appendectomy, Section, Cholecystectomy, Hernia Repair, Hysterectomy, Orthopedic Surgery, Tonsillectomy, Tubal Ligation Additional Past Surgical History / Comment(s): Hiatal Hernia, umbilical hernia repair, left rotator cuff repair, bilateral knee scopes, pain clinic procedures- occipital nerve block. abd exploratory sx(endometreosis), 3 abd scopes 1981, 1989, 1991), lumbar puncture. EGD. nerve biopsy, salvalry gland biospy Past Anesthesia/Blood Transfusion Reactions: No Reported Reaction Additional Past Anesthesia/Blood Transfusion Reaction / Comment(s): Claustrophobic Past Psychological History: Anxiety, Bipolar, Panic Disorder, PTSD Smoking Status: Current every day smoker Past Alcohol Use History: None Reported Past Drug Use History: None Reported - Past Family History Mother Family Medical History: Cancer, Dementia, Diabetes Mellitus, GERD/Reflux, Hyperlipidemia, Hypertension, Thyroid Disorder Additional Family Medical History / Comment(s): Quad CABG, cardiac stents, toes ampuated and left leg amputated Father History Unknown: Yes Family Medical History: No Reported History <Greg Chand - Last Filed: 01/23/22 07:17> General Exam Limitations: no limitations General appearance: alert, in no apparent distress Head exam: Present: atraumatic, normocephalic, normal inspection Eye exam: Present: normal appearance, PERRL, EOMI. Absent: scleral icterus, conjunctival injection, periorbital swelling ENT exam: Present: mucous membranes dry Neck exam: Present: normal inspection, full ROM, other (No stridor JVD or bruits). Absent: tenderness, meningismus, lymphadenopathy Respiratory exam: Present: normal lung sounds bilaterally. Absent: respiratory distress, wheezes, rales, rhonchi, stridor Cardiovascular Exam: Present: normal rhythm, tachycardia, normal heart sounds. Absent: systolic murmur, diastolic murmur, rubs, gallop, clicks GI/Abdominal exam: Present: soft, normal bowel sounds. Absent: distended, tenderness, guarding, rebound, rigid Extremities exam: Present: normal inspection, full ROM, normal capillary refill. Absent: tenderness, pedal edema, joint swelling, calf tenderness Back exam: Present: normal inspection Neurological exam: Present: alert, oriented X3, CN II-XII intact Psychiatric exam: Present: normal affect, normal mood Skin exam: Present: warm, dry, intact, normal color. Absent: rash <Greg Chand - Last Filed: 01/23/22 07:17> - General Exam Comments Initial Comments: This is a well-developed (Greg Chand) Course <Greg Chand - Last Filed: 01/23/22 07:17> Vital Signs 01/20/22 17:52 Temperature 98.5 F Pulse Rate 126 H Respiratory 18 Rate Blood Pressure 118/87 O2 Sat by Pulse 99 Oximetry - Reevaluation(s) Reevaluation #1: 01/20/22 20:55 Patient was given several different medications for pain control with moderate results and did give 20 mg of IV ketamine slow push which did help somewhat to bring the pain now but she did recur. She is given IV fluids IV magnesium potassium. She would like to be able go home Stadol has been ordered which she is had success with a past. I will be endorsing this patient Dr. Mclaughlin at our shift change pending results of medications. (Greg Chand) Reevaluation #2: 01/20/22 20:57 (The acid is elevated this is likely on the basis of dehydration is no infectious process has been identified. (Greg Chand) Medical Decision Making - Lab Data Result diagrams: 01/20/22 18:51 01/20/22 18:51 <Joni Mclaughlin - Last Filed: 01/20/22 22:04> - Lab Data Result diagrams: 01/20/22 18:51 01/20/22 18:51 <Greg Chand - Last Filed: 01/23/22 07:17> - Lab Data Lab Results 01/20/22 01/20/22 01/20/22 Range/Units 18:51 18:51 18:51 WBC 19.1 H (3.8-10.6) k/uL RBC 4.77 (3.80-5.40) m/uL Hgb 14.9 (11.4-16.0) gm/dL Hct 42.6 (34.0-46.0) % MCV 89.4 (80.0-100.0) fL MCH 31.3 (25.0-35.0) pg MCHC 34.9 (31.0-37.0) g/dL RDW 13.4 (11.5-15.5) % Plt Count 328 (150-450) k/uL MPV 10.9 Neutrophils % 80 % Lymphocytes % 13 % Monocytes % 5 % Eosinophils % 0 % Basophils % 0 % Neutrophils # 15.2 H (1.3-7.7) k/uL Lymphocytes # 2.5 (1.0-4.8) k/uL Monocytes # 0.9 (0-1.0) k/uL Eosinophils # 0.1 (0-0.7) k/uL Basophils # 0.1 (0-0.2) k/uL Sodium 134 L (137-145) mmol/L Potassium 2.5 L* (3.5-5.1) mmol/L Chloride 89 L (98-107) mmol/L Carbon Dioxide 32 H (22-30) mmol/L Anion Gap 13 mmol/L BUN <2 L (7-17) mg/dL Creatinine 0.80 (0.52-1.04) mg/dL Est GFR (CKD-EPI)AfAm >90 (>60 ml/min/1.73 sqM) Est GFR (CKD-EPI)NonAf 87 (>60 ml/min/1.73 sqM) Glucose 117 H (74-99) mg/dL Lactic Ac Sepsis Rflx Plasma Lactic Acid Ed 3.2 H* (0.7-2.0) mmol/L Calcium 8.9 (8.4-10.2) mg/dL Magnesium 1.5 L (1.6-2.3) mg/dL Total Bilirubin 0.7 (0.2-1.3) mg/dL AST 20 (14-36) U/L ALT 15 (4-34) U/L Alkaline Phosphatase 189 H (38-126) U/L Creatine Kinase 46 (30-135) U/L Troponin I (0.000-0.034) ng/mL Total Protein 7.0 (6.3-8.2) g/dL Albumin 4.5 (3.5-5.0) g/dL Lipase 68 (23-300) U/L 01/20/22 01/20/22 Range/Units 18:51 19:24 WBC (3.8-10.6) k/uL RBC (3.80-5.40) m/uL Hgb (11.4-16.0) gm/dL Hct (34.0-46.0) % MCV (80.0-100.0) fL MCH (25.0-35.0) pg MCHC (31.0-37.0) g/dL RDW (11.5-15.5) % Plt Count (150-450) k/uL MPV Neutrophils % % Lymphocytes % % Monocytes % % Eosinophils % % Basophils % % Neutrophils # (1.3-7.7) k/uL Lymphocytes # (1.0-4.8) k/uL Monocytes # (0-1.0) k/uL Eosinophils # (0-0.7) k/uL Basophils # (0-0.2) k/uL Sodium (137-145) mmol/L Potassium (3.5-5.1) mmol/L Chloride (98-107) mmol/L Carbon Dioxide (22-30) mmol/L Anion Gap mmol/L BUN (7-17) mg/dL Creatinine (0.52-1.04) mg/dL Est GFR (CKD-EPI)AfAm (>60 ml/min/1.73 sqM) Est GFR (CKD-EPI)NonAf (>60 ml/min/1.73 sqM) Glucose (74-99) mg/dL Lactic Ac Sepsis Rflx Y Plasma Lactic Acid Ed (0.7-2.0) mmol/L Calcium (8.4-10.2) mg/dL Magnesium (1.6-2.3) mg/dL Total Bilirubin (0.2-1.3) mg/dL AST (14-36) U/L ALT (4-34) U/L Alkaline Phosphatase (38-126) U/L Creatine Kinase (30-135) U/L Troponin I <0.012 (0.000-0.034) ng/mL Total Protein (6.3-8.2) g/dL Albumin (3.5-5.0) g/dL Lipase (23-300) U/L Disposition Is patient prescribed a controlled substance at d/c from ED?: No <Joni Mclaughlin - Last Filed: 10/16/22 22:04> Is patient prescribed a controlled substance at d/c from ED?: No <Greg Chand - Last Filed: 01/23/22 07:17> Clinical Impression: Migraine, Dehydration, Hypokalemia, Hypomagnesemia, Tachycardia, Nausea Disposition: HOME SELF-CARE Condition: Good Instructions (If sedation given, give patient instructions): Acute Headache (ED) Referrals: José Reece MD [Primary Care Provider] - 1-2 days
[2022-01-20 19:00] LABS: Basophils # (A) 0.1 k/uL (0-0.2); Basophils % (A) 0 %; Eosinophils # (A) 0.1 k/uL (0-0.7); Eosinophils % (A) 0 %; HCT 42.6 % (34.0-46.0); HGB 14.9 gm/dL (11.4-16.0); Lymphocytes # (A) 2.5 k/uL (1.0-4.8); Lymphocytes % (A) 13 %; MCH 31.3 pg (25.0-35.0); MCHC 34.9 g/dL (31.0-37.0); MCV 89.4 fL (80.0-100.0); Mean Platelet Volume 10.9; Monocytes # (A) 0.9 k/uL (0-1.0); Monocytes % (A) 5 %; Neutrophils # (A) 15.2 k/uL (1.3-7.7); Neutrophils % (A) 80 %; Platelet Count 328 k/uL (150-450); RBC 4.77 m/uL (3.80-5.40); RDW 13.4 % (11.5-15.5); WBC 19.1 k/uL (3.8-10.6)
[2022-01-20 19:14] LABS: ALT 15 U/L (4-34); AST 20 U/L (14-36); African American GFR (CKD) >90 (>60 ml/min/1.73 sqM); Albumin 4.5 g/dL (3.5-5.0); Alkaline Phosphatase 189 U/L (38-126); Anion Gap 13 mmol/L; Blood Urea Nitrogen <2 mg/dL (7-17); Calcium 8.9 mg/dL (8.4-10.2); Carbon Dioxide 32 mmol/L (22-30); Chloride 89 mmol/L (98-107); Creatine Kinase 46 U/L (30-135); Glucose 117 mg/dL (74-99); Lipase 68 U/L (23-300); Magnesium 1.5 mg/dL (1.6-2.3); Non-African American GFR(CKD) 87 (>60 ml/min/1.73 sqM); Sodium 134 mmol/L (137-145); Total Bilirubin 0.7 mg/dL (0.2-1.3)
[2022-01-20 19:24] LABS: Potassium 2.5 mmol/L (3.5-5.1)
[2022-01-20] MEDS ORDERED: POTASSIUM CHLORIDE 20 MEQ in WATER FOR INJECTION 1 100ML.BAG IVPB STA (19:29)
[2022-01-20] MEDS ORDERED: MAGNESIUM SULFATE-D5W PMX 1 GM in DEXTROSE/WATER 1 100ML.BAG IVPB ONE (19:29)
[2022-01-20] MEDS ORDERED: KETAMINE 10 MG/ML 20 ML VIAL IV STA (19:39)
[2022-01-20] MEDS ORDERED: ONDANSETRON 4 MG/2 ML VIAL IVP STA (20:23)
[2022-01-20] MEDS ORDERED: BUTORPHANOL 1 MG/ML 1 ML VIAL IV STA (20:38)
== END 2022-01-20 22:21 | disposition home or self-care (01) ==
LOC: EC 17:37
DX: G43.909 Migraine, unspecified, not intractable, without status migrainosus (principal); E86.0 Dehydration; E87.6 Hypokalemia; E83.42 Hypomagnesemia; R00.0 Tachycardia, unspecified; R11.0 Nausea; E78.5 Hyperlipidemia, unspecified; I10 Essential (primary) hypertension; F41.9 Anxiety disorder, unspecified; F31.9 Bipolar disorder, unspecified; F17.200 Nicotine dependence, unspecified, uncomplicated; Z88.0 Allergy status to penicillin; Z88.6 Allergy status to analgesic agent; Z88.1 Allergy status to other antibiotic agents; Z88.8 Allergy status to other drugs, medicaments and biological substances; Z91.048 Other nonmedicinal substance allergy status; Z79.899 Other long term (current) drug therapy
CPT/HCPCS: 36415; 80053; 82550; 83605; 83690; 83735; 84484; 85025; 99284; 96365; 96366; 96368; 96361; 96375 ×6; J1200; J2765; J0595; J3480; J2405; J1170; J3475

== ENCOUNTER 2022-01-23 19:39 | Emergency (ER) | payer OTHER ==
[2022-01-23 20:03] VITALS: RESP 18; TEMP 98.1
[2022-01-23] MEDS ORDERED: ONDANSETRON 4 MG/2 ML VIAL IVP STA (22:57)
[2022-01-23] MEDS ORDERED: SODIUM CHLORIDE 0.9% 1,000 ML IV STA (22:57)
[2022-01-23] MEDS ORDERED: HYDROmorphone 1 MG/ML 1 ML SYRINGE IVP STA (22:57)
[2022-01-23] MEDS ORDERED: diphenhydrAMINE 50 MG/ML 1 ML VIAL IVP STA (22:57)
[2022-01-24 00:19] LABS: African American GFR (CKD) >90 (>60 ml/min/1.73 sqM); Anion Gap 11 mmol/L; Blood Urea Nitrogen 5 mg/dL (7-17); Calcium 8.3 mg/dL (8.4-10.2); Carbon Dioxide 28 mmol/L (22-30); Chloride 98 mmol/L (98-107); Glucose 93 mg/dL (74-99); Magnesium 1.8 mg/dL (1.6-2.3); Non-African American GFR(CKD) >90 (>60 ml/min/1.73 sqM); Potassium 2.9 mmol/L (3.5-5.1); Sodium 137 mmol/L (137-145)
[2022-01-24] MEDS ORDERED: POTASSIUM CHLORIDE ER 20 MEQ TAB.ER PO STA (00:32)
[2022-01-24] MEDS ORDERED: HYDROmorphone 0.5 MG/0.5 ML SYRINGE IVP STA (00:59)
--- NOTE | 2022-01-24 01:01 | ED ---
General Adult HPI - General Chief complaint: Headache Stated complaint: Migraine,Seizure,vomitting Time Seen by Provider: 01/23/22 22:39 Source: patient, RN notes reviewed, old records reviewed Mode of arrival: wheelchair Limitations: no limitations - History of Present Illness Initial comments: Patient is a 51-year-old female well-known to emergency department presents emergency Department complaining of her typical migraine headaches with nausea and vomiting. This current bout has been ongoing for multiple days. Had some relief the other day when she presents to the emergency department but presents again for migraines and nausea and vomiting. States her home medications are helping. Denies any chest pain, shortness breath, vision changes. Has no other acute complaint at this time. Denies fevers or chills. Presents seeking pain relief. States she does have a history of low potassium and would like that checked as well due to the nausea and vomiting.She does have a history of seizure disorder and states she had one yesterday. Has them mostly on a daily basis. - Related Data Home Medications Medication Instructions Recorded Confirmed amLODIPine [Norvasc] 5 mg PO HS 04/28/20 09/14/21 Omeprazole [PriLOSEC] 20 mg PO BID 12/15/20 09/14/21 Thiamine [Vitamin B-1] 100 mg PO HS 01/04/21 09/14/21 Atorvastatin [Lipitor] 40 mg PO HS 07/20/21 09/14/21 DULoxetine HCL [Cymbalta] 60 mg PO HS 07/20/21 09/14/21 buprenorphine HCL [Subutex] 1 mg SUBLINGUAL TID 07/20/21 09/14/21 Previous Rx's Medication Instructions Recorded HYDROcodone/APAP 7.5-325MG [[place] 1 tab PO TID PRN #12 tab 11/17/20 7.5-325] Lacosamide [Vimpat] 100 mg PO BID 7 Days #14 tab 01/16/21 Ondansetron Odt [Zofran Odt] 4 mg PO Q8HR PRN #10 tab 10/24/21 Potassium Chloride ER [[place] 20] 20 meq PO DAILY 3 Days #3 tab 01/24/22 Allergies Allergy/AdvReac Type Severity Reaction Status Date / Time dihydroergotamine Allergy Unknown Unknown Verified 01/23/22 20:03 [From Migranal] buprenorphine Allergy Rash/Hives Verified 01/23/22 20:03 gabapentin [From Neurontin] Allergy Itching/Swe Verified 01/23/22 20:03 lling latex Allergy Anaphylaxis Verified 01/23/22 20:03 naproxen [From Naprosyn] Allergy Anaphylaxis Verified 01/23/22 20:03 Penicillins Allergy Anaphylaxis Verified 01/23/22 20:03 prednisone Allergy Swelling Verified 01/23/22 20:03 quetiapine fumarate Allergy Itching, Verified 01/23/22 20:03 [From Seroquel] leg cramps rofecoxib [From Vioxx] Allergy Itching, Verified 01/23/22 20:03 leg cramps terfenadine [From Seldane] Allergy Rash/Hives Verified 01/23/22 20:03 tramadol Allergy Nausea & Verified 01/23/22 20:03 Vomiting/LEG CRAMPS/HEART FLUTTERS calcium carbonate [From DHEA] AdvReac Chest Pain Verified 01/23/22 20:03 calcium phosphate,dibasic AdvReac Chest Pain Verified 01/23/22 20:03 [From DHEA] clindamycin AdvReac muscle Verified 01/23/22 20:03 cramps clonidine AdvReac fast Verified 01/23/22 20:03 heartbeat, migraine dextromethorphan HBr AdvReac face/neck Verified 01/23/22 20:03 [From NyQuil] flushing diazepam [From Valium] AdvReac Nausea & Verified 01/23/22 20:03 Vomiting divalproex sodium AdvReac Nausea & Verified 01/23/22 20:03 [From Depakote] Vomiting doxylamine [From NyQuil] AdvReac face "beet Verified 01/23/22 20:03 red", elevated temp. ibuprofen [From Motrin] AdvReac abdominal Verified 01/23/22 20:03 & muscle cramps indomethacin [From Indocin] AdvReac Abdominal Verified 01/23/22 20:03 Pain,N/V ketorolac tromethamine AdvReac "built up Verified 01/23/22 20:03 [From Toradol] in system", had to be given something to reverse lorazepam [From Ativan] AdvReac Nausea & Verified 01/23/22 20:03 Vomiting memantine [From Namenda] AdvReac Itching Verified 01/23/22 20:03 metoclopramide HCl AdvReac muscle Verified 01/23/22 20:03 [From Reglan] cramps nortriptyline [From Pamelor] AdvReac Chest Pain Verified 01/23/22 20:03 prasterone (DHEA) [From DHEA] AdvReac Chest Pain Verified 01/23/22 20:03 prochlorperazine AdvReac leg Verified 01/23/22 20:03 [From Compazine] cramping propranolol AdvReac Chest Pain Verified 01/23/22 20:03 pseudoephedrine HCl AdvReac face "beet Verified 01/23/22 20:03 [From NyQuil] red", elevated temp. quetiapine [From Seroquel] AdvReac leg Verified 01/23/22 20:03 cramping sumatriptan [From Imitrex] AdvReac migrane Verified 01/23/22 20:03 sumatriptan succinate AdvReac migrane Verified 01/23/22 20:03 [From Imitrex] topiramate [From Topamax] AdvReac "built up Verified 01/23/22 20:03 in system", had to be given something to reverse trazodone AdvReac "built up Verified 01/23/22 20:03 in system", had to be given something to reverse zolpidem tartrate AdvReac "Became Verified 01/23/22 20:03 [From Ambien] violent with no memory" zonisamide [From Zonegran] AdvReac inability Verified 01/23/22 20:03 to eat prosyn Allergy Itching Uncoded 01/23/22 20:03 artificial sweetener AdvReac SEVERE Uncoded 01/23/22 20:03 MIGRAINE HEADACHE Review of Systems ROS Statement: Those systems with pertinent positive or pertinent negative responses have been documented in the HPI. Review of Systems: CONST: Denies fever EYES: Denies blurry vision ENT: Denies nasal congestion C/V: Denies Chest pain RESP: Denies shortness of breath GI: Denies abdominal pain : Denies dysuria SKIN: Denies rash. MSK: Denies joint pain. NEURO: Endorses headache ROS Other: All systems not noted in ROS Statement are negative. Past Medical History Past Medical History: Hyperlipidemia, Hypertension, Seizure Disorder Additional Past Medical History / Comment(s): Migraines, viral meningitis x3 as a child, 1995, 2000, chronic back pain, nerve blocks 08/2016 and 12/2016. Last seizure 10/10/2020, "ABSENT SEIZURES. HX TACHYCARDIA, GBS/CIPD, PTSD. History of Any Multi-Drug Resistant Organisms: None Reported Past Surgical History: Appendectomy, Section, Cholecystectomy, Hernia Repair, Hysterectomy, Orthopedic Surgery, Tonsillectomy, Tubal Ligation Additional Past Surgical History / Comment(s): Hiatal Hernia, umbilical hernia repair, left rotator cuff repair, bilateral knee scopes, pain clinic procedures- occipital nerve block. abd exploratory sx(endometreosis), 3 abd scopes 1981, 1989, 1991), lumbar puncture. EGD. nerve biopsy, salvalry gland biospy Past Anesthesia/Blood Transfusion Reactions: No Reported Reaction Additional Past Anesthesia/Blood Transfusion Reaction / Comment(s): Claustrophobic Past Psychological History: Anxiety, Bipolar, Panic Disorder, PTSD Smoking Status: Current every day smoker Past Alcohol Use History: None Reported Past Drug Use History: None Reported - Past Family History Mother Family Medical History: Cancer, Dementia, Diabetes Mellitus, GERD/Reflux, Hyperlipidemia, Hypertension, Thyroid Disorder Additional Family Medical History / Comment(s): Quad CABG, cardiac stents, toes ampuated and left leg amputated Father History Unknown: Yes Family Medical History: No Reported History General Exam - General Exam Comments Initial Comments: General: Appears in no acute distress. HEAD: Normal with no signs of head trauma. EYES: PERRLA, EOMI, conjunctiva normal, no discharge. Pupils 3 mm and equal bilaterally. ENT: Hearing grossly intact, normal oropharynx. RESPIRATORY: Clear breath sounds bilaterally. No wheezes, rales, or rhonchi. C/V: Regular rate and rhythm. S1 and S2 auscultated, peripheral pulses 2+ and intact throughout ABD: Abd is soft, nontender, nondistended EXT: Normal range of motion, no obvious deformity SKIN: No rashes or lesions observed on exposed skin. NEURO: Alert and oriented 4. No focal deficits. Limitations: no limitations Course Vital Signs 01/23/22 20:01 Temperature 98.1 F Pulse Rate 118 H Respiratory 18 Rate Blood Pressure 127/86 O2 Sat by Pulse 98 Oximetry Medical Decision Making - Medical Decision Making Based on the patient's presentation and physical exam, I believe she is experiencing her typical migraine headaches with nausea and vomiting. We will obtain electrolytes as well as treat her migraine with a migraine cocktail and pain medications. She was in agreement with this plan. With an acceptable limits. Afebrile. Patient is hypokalemic on labs and will be replenished. I will also provide her with a short-term prescription for potassium tablets, 3 days in total. Recommend she follow up with her PCP or headache doctors who she is seeing madhavi mosqueda the next 1-2 weeks for repeat potassium draws. She was in agreement this plan. States her headache has improved and would like to go home. I believe this is reasonable. I instructed the patient to follow up with their PCP in the next 1-3 days. I explained that the patient should return to the emergency department if they experience any worsening symptoms. Strict return precautions were discussed with the patient. The patient expressed understanding of these instructions. I answered all questions that the patient had. The patient was discharged home in good condition with their prescriptions and follow up information. - Lab Data Result diagrams: 01/23/22 23:20 Lab Results 01/23/22 Range/Units 23:20 Sodium 137 (137-145) mmol/L Potassium 2.9 L (3.5-5.1) mmol/L Chloride 98 (98-107) mmol/L Carbon Dioxide 28 (22-30) mmol/L Anion Gap 11 mmol/L BUN 5 L (7-17) mg/dL Creatinine 0.73 (0.52-1.04) mg/dL Est GFR (CKD-EPI)AfAm >90 (>60 ml/min/1.73 sqM) Est GFR (CKD-EPI)NonAf >90 (>60 ml/min/1.73 sqM) Glucose 93 (74-99) mg/dL Calcium 8.3 L (8.4-10.2) mg/dL Magnesium 1.8 (1.6-2.3) mg/dL Disposition Clinical Impression: Migraine, Nausea and vomiting, Hypokalemia Disposition: HOME SELF-CARE Condition: Good Prescriptions: Potassium Chloride ER [K-Dur 20] 20 meq PO DAILY 3 Days #3 tab Is patient prescribed a controlled substance at d/c from ED?: No Referrals: José Reece MD [Primary Care Provider] - 1-2 days Time of Disposition: 00:50
[2022-01-24 01:20] VITALS: BP 126/84; PULSE 100
== END 2022-01-24 01:14 | disposition home or self-care (01) ==
LOC: EC 19:39
DX: G43.911 Migraine, unspecified, intractable, with status migrainosus (principal); R11.10 Vomiting, unspecified; E87.6 Hypokalemia; E78.5 Hyperlipidemia, unspecified; I10 Essential (primary) hypertension; F17.200 Nicotine dependence, unspecified, uncomplicated; F41.9 Anxiety disorder, unspecified; F31.9 Bipolar disorder, unspecified; F43.10 Post-traumatic stress disorder, unspecified; Z79.02 Long term (current) use of antithrombotics/antiplatelets; Z79.811 Long term (current) use of aromatase inhibitors; Z79.899 Other long term (current) drug therapy; Z88.1 Allergy status to other antibiotic agents; Z88.2 Allergy status to sulfonamides; Z88.8 Allergy status to other drugs, medicaments and biological substances; Z88.6 Allergy status to analgesic agent; Z88.5 Allergy status to narcotic agent
CPT/HCPCS: 36415; 80048; 83735; 99284; 96374; 96375 ×2; 96376 ×2; 96361; J1200; J2405; J1170 ×2

== ENCOUNTER 2022-02-10 16:43 | Emergency (ER) | payer OTHER ==
[2022-02-10 17:03] VITALS: RESP 20; TEMP 97.4
[2022-02-10] MEDS ORDERED: HYDROmorphone 1 MG/ML 1 ML SYRINGE IM STA (17:35)
--- NOTE | 2022-02-10 18:22 | ED ---
Headache HPI - General Chief Complaint: Headache Stated Complaint: Headache Time Seen by Provider: 02/10/22 17:06 Mode of arrival: ambulatory Limitations: no limitations - History of Present Illness Initial Comments: Patient is a 51-year-old female who is well-known to our ER presenting with chief complaint of migraine. Patient has history of migraine headaches, states that this episode feels like her regular migraines. She admits to nausea and vomiting. She admits to light sensitivity. She denies any neck pain or stiffness, any dizziness, chest pain, difficulty breathing, abdominal pain, vision or hearing changes. - Related Data Home Medications Medication Instructions Recorded Confirmed amLODIPine [Norvasc] 5 mg PO HS 04/28/20 09/14/21 Omeprazole [PriLOSEC] 20 mg PO BID 12/15/20 09/14/21 Thiamine [Vitamin B-1] 100 mg PO HS 01/04/21 09/14/21 Atorvastatin [Lipitor] 40 mg PO HS 07/20/21 09/14/21 DULoxetine HCL [Cymbalta] 60 mg PO HS 07/20/21 09/14/21 buprenorphine HCL [Subutex] 1 mg SUBLINGUAL TID 07/20/21 09/14/21 Previous Rx's Medication Instructions Recorded HYDROcodone/APAP 7.5-325MG [[place] 1 tab PO TID PRN #12 tab 11/17/20 7.5-325] Lacosamide [Vimpat] 100 mg PO BID 7 Days #14 tab 01/16/21 Ondansetron Odt [Zofran Odt] 4 mg PO Q8HR PRN #10 tab 10/24/21 Potassium Chloride ER [K-Dur 20] 20 meq PO DAILY 3 Days #3 tab 01/24/22 Allergies Allergy/AdvReac Type Severity Reaction Status Date / Time dihydroergotamine Allergy Unknown Unknown Verified 01/23/22 20:03 [From Migranal] buprenorphine Allergy Rash/Hives Verified 01/23/22 20:03 gabapentin [From Neurontin] Allergy Itching/Swe Verified 01/23/22 20:03 lling latex Allergy Anaphylaxis Verified 01/23/22 20:03 naproxen [From Naprosyn] Allergy Anaphylaxis Verified 01/23/22 20:03 Penicillins Allergy Anaphylaxis Verified 01/23/22 20:03 prednisone Allergy Swelling Verified 01/23/22 20:03 quetiapine fumarate Allergy Itching, Verified 01/23/22 20:03 [From Seroquel] leg cramps rofecoxib [From Vioxx] Allergy Itching, Verified 01/23/22 20:03 leg cramps terfenadine [From Seldane] Allergy Rash/Hives Verified 01/23/22 20:03 tramadol Allergy Nausea & Verified 01/23/22 20:03 Vomiting/LEG CRAMPS/HEART FLUTTERS calcium carbonate [From DHEA] AdvReac Chest Pain Verified 01/23/22 20:03 calcium phosphate,dibasic AdvReac Chest Pain Verified 01/23/22 20:03 [From DHEA] clindamycin AdvReac muscle Verified 01/23/22 20:03 cramps clonidine AdvReac fast Verified 01/23/22 20:03 heartbeat, migraine dextromethorphan HBr AdvReac face/neck Verified 01/23/22 20:03 [From NyQuil] flushing diazepam [From Valium] AdvReac Nausea & Verified 01/23/22 20:03 Vomiting divalproex sodium AdvReac Nausea & Verified 01/23/22 20:03 [From Depakote] Vomiting doxylamine [From NyQuil] AdvReac face "beet Verified 01/23/22 20:03 red", elevated temp. ibuprofen [From Motrin] AdvReac abdominal Verified 01/23/22 20:03 & muscle cramps indomethacin [From Indocin] AdvReac Abdominal Verified 01/23/22 20:03 Pain,N/V ketorolac tromethamine AdvReac "built up Verified 01/23/22 20:03 [From Toradol] in system", had to be given something to reverse lorazepam [From Ativan] AdvReac Nausea & Verified 01/23/22 20:03 Vomiting memantine [From Namenda] AdvReac Itching Verified 01/23/22 20:03 metoclopramide HCl AdvReac muscle Verified 01/23/22 20:03 [From Reglan] cramps nortriptyline [From Pamelor] AdvReac Chest Pain Verified 01/23/22 20:03 prasterone (DHEA) [From DHEA] AdvReac Chest Pain Verified 01/23/22 20:03 prochlorperazine AdvReac leg Verified 01/23/22 20:03 [From Compazine] cramping propranolol AdvReac Chest Pain Verified 01/23/22 20:03 pseudoephedrine HCl AdvReac face "beet Verified 01/23/22 20:03 [From NyQuil] red", elevated temp. quetiapine [From Seroquel] AdvReac leg Verified 01/23/22 20:03 cramping sumatriptan [From Imitrex] AdvReac migrane Verified 01/23/22 20:03 sumatriptan succinate AdvReac migrane Verified 01/23/22 20:03 [From Imitrex] topiramate [From Topamax] AdvReac "built up Verified 01/23/22 20:03 in system", had to be given something to reverse trazodone AdvReac "built up Verified 01/23/22 20:03 in system", had to be given something to reverse zolpidem tartrate AdvReac "Became Verified 01/23/22 20:03 [From Ambien] violent with no memory" zonisamide [From Zonegran] AdvReac inability Verified 01/23/22 20:03 to eat prosyn Allergy Itching Uncoded 01/23/22 20:03 artificial sweetener AdvReac SEVERE Uncoded 01/23/22 20:03 MIGRAINE HEADACHE Review of Systems ROS Statement: Those systems with pertinent positive or pertinent negative responses have been documented in the HPI. ROS Other: All systems not noted in ROS Statement are negative. Past Medical History Past Medical History: Hyperlipidemia, Hypertension, Seizure Disorder Additional Past Medical History / Comment(s): Migraines, viral meningitis x3 as a child, 1995, 2000, chronic back pain, nerve blocks 08/2016 and 12/2016. Last seizure 10/10/2020, "ABSENT SEIZURES. HX TACHYCARDIA, GBS/CIPD, PTSD. History of Any Multi-Drug Resistant Organisms: None Reported Past Surgical History: Appendectomy, Section, Cholecystectomy, Hernia Repair, Hysterectomy, Orthopedic Surgery, Tonsillectomy, Tubal Ligation Additional Past Surgical History / Comment(s): Hiatal Hernia, umbilical hernia repair, left rotator cuff repair, bilateral knee scopes, pain clinic procedures- occipital nerve block. abd exploratory sx(endometreosis), 3 abd scopes 1981, 1989, 1991), lumbar puncture. EGD. nerve biopsy, salvalry gland biospy Past Anesthesia/Blood Transfusion Reactions: No Reported Reaction Additional Past Anesthesia/Blood Transfusion Reaction / Comment(s): Claustrophobic Past Psychological History: Anxiety, Bipolar, Panic Disorder, PTSD Smoking Status: Current every day smoker Past Alcohol Use History: None Reported Past Drug Use History: None Reported - Past Family History Mother Family Medical History: Cancer, Dementia, Diabetes Mellitus, GERD/Reflux, Hyperlipidemia, Hypertension, Thyroid Disorder Additional Family Medical History / Comment(s): Quad CABG, cardiac stents, toes ampuated and left leg amputated Father History Unknown: Yes Family Medical History: No Reported History General Exam Limitations: no limitations General appearance: alert, in no apparent distress Head exam: Present: atraumatic, normocephalic, normal inspection Eye exam: Present: normal appearance, EOMI Neck exam: Present: normal inspection, full ROM Respiratory exam: Present: normal lung sounds bilaterally. Absent: respiratory distress, wheezes, rales, rhonchi, stridor Cardiovascular Exam: Present: regular rate, normal rhythm, normal heart sounds. Absent: systolic murmur, diastolic murmur, rubs, gallop, clicks Extremities exam: Present: normal inspection, full ROM Neurological exam: Present: alert, oriented X3, CN II-XII intact Expanded Eye Response: (4) open spontaneously Motor Response: (6) obeys commands Verbal Response: (5) oriented Mauri Total: 15 Psychiatric exam: Present: normal affect, normal mood Skin exam: Present: warm, dry, intact, normal color. Absent: rash Course Vital Signs 02/10/22 02/10/22 02/10/22 17:00 19:43 20:47 Temperature 97.4 F L Pulse Rate 134 H 113 H 80 Respiratory 20 20 Rate Blood Pressure 118/80 148/98 O2 Sat by Pulse 98 96 98 Oximetry Medical Decision Making - Medical Decision Making Patient is a 51-year-old female presenting with chief complaint of headache. She is well-known to our ER. States that this headache is consistent with her regular migraines. Patient is provided with medication, she reports improvement. Patient's vitals are stable and respirations are abdominal. She is instructed to follow-up with her PCP and neurologist. Follow-up with PCP. Report back to ER with any new or worsening symptoms. Discussed return parameters and answered all questions. Patient conveyed verbal understanding and agreed to the plan. I discussed this case in detail with my attending Dr. Mclaughlin Disposition Clinical Impression: Headache Disposition: HOME SELF-CARE Condition: Good Instructions (If sedation given, give patient instructions): Migraine Headache (ED) Additional Instructions: Follow-up with PCP and neurologist. Report back to ER with any new or worsening symptoms. Is patient prescribed a controlled substance at d/c from ED?: No Referrals: José Reece MD [Primary Care Provider] - 1-2 days Time of Disposition: 19:11
[2022-02-10] MEDS ORDERED: ONDANSETRON 4 MG/2 ML VIAL IM STA (19:13)
[2022-02-10] MEDS ORDERED: diphenhydrAMINE 50 MG/ML 1 ML VIAL IM STA (19:48)
[2022-02-10] MEDS ORDERED: BUTORPHANOL 1 MG/ML 1 ML VIAL IM STA (19:50)
[2022-02-10 20:48] VITALS: BP 148/98; PULSE 80
== END 2022-02-10 20:50 | disposition home or self-care (01) ==
LOC: EC 16:43
DX: R51.9 Headache, unspecified (principal); I10 Essential (primary) hypertension; E78.5 Hyperlipidemia, unspecified; F41.9 Anxiety disorder, unspecified; F31.9 Bipolar disorder, unspecified; F17.200 Nicotine dependence, unspecified, uncomplicated; Z79.899 Other long term (current) drug therapy; Z79.83 Long term (current) use of bisphosphonates; Z88.0 Allergy status to penicillin; Z88.6 Allergy status to analgesic agent; Z88.5 Allergy status to narcotic agent; Z88.8 Allergy status to other drugs, medicaments and biological substances; Z91.040 Latex allergy status
CPT/HCPCS: 99284; 96372 ×3; J0595; J2405; J1170

== ENCOUNTER 2022-02-13 18:53 | Emergency (ER) | payer OTHER ==
[2022-02-13] MEDS ORDERED: diphenhydrAMINE 50 MG/ML 1 ML VIAL IVP STA (20:07)
[2022-02-13] MEDS ORDERED: METOCLOPRAMIDE 5 MG/ML 2 ML VIAL IVP STA (20:07)
[2022-02-13] MEDS ORDERED: BUTORPHANOL 1 MG/ML 1 ML VIAL IV STA (20:07)
[2022-02-13] MEDS ORDERED: SODIUM CHLORIDE 0.9% 1,000 ML IV STA (20:07)
--- NOTE | 2022-02-13 20:24 | ED ---
Headache HPI - General Chief Complaint: Headache Stated Complaint: migraine, vomiting Time Seen by Provider: 02/13/22 20:02 Source: RN notes reviewed Mode of arrival: ambulatory Limitations: no limitations - History of Present Illness Initial Comments: This is a 51-year-old female who presents to the emergency department with a headache which started yesterday. Headache was insidious onset, consistent with her previous migraine headaches. Patient has tried her abortive remedies at home with out improvement. Patient has had nausea and vomiting as well. Photosensitivity. Patient states she does get auras with her headaches, patient states that she basically has chronic auras. no fever or chills, no changes in vision or hearing, no sore throat or difficulty with speech, no neck pain, no chest pain or shortness of breath, no abdominal pain, no nausea or vomiting, no changes in urination or bowel movements, no numbness or tingling, no extremity pain, no skin rashes or lesions. Past medical, surgical, social, and family history reviewed. MD Complaint: headache - Related Data Home Medications Medication Instructions Recorded Confirmed amLODIPine [Norvasc] 5 mg PO HS 04/28/20 09/14/21 Omeprazole [PriLOSEC] 20 mg PO BID 12/15/20 09/14/21 Thiamine [Vitamin B-1] 100 mg PO HS 01/04/21 09/14/21 Atorvastatin [Lipitor] 40 mg PO HS 07/20/21 09/14/21 DULoxetine HCL [Cymbalta] 60 mg PO HS 07/20/21 09/14/21 buprenorphine HCL [Subutex] 1 mg SUBLINGUAL TID 07/20/21 09/14/21 Previous Rx's Medication Instructions Recorded HYDROcodone/APAP 7.5-325MG [[place] 1 tab PO TID PRN #12 tab 11/17/20 7.5-325] Lacosamide [Vimpat] 100 mg PO BID 7 Days #14 tab 01/16/21 Ondansetron Odt [Zofran Odt] 4 mg PO Q8HR PRN #10 tab 10/24/21 Potassium Chloride ER [K-Dur 20] 20 meq PO DAILY 3 Days #3 tab 01/24/22 Allergies Allergy/AdvReac Type Severity Reaction Status Date / Time dihydroergotamine Allergy Unknown Unknown Verified 02/13/22 19:22 [From Migranal] buprenorphine Allergy Rash/Hives Verified 02/13/22 19:22 gabapentin [From Neurontin] Allergy Itching/Swe Verified 02/13/22 19:22 lling latex Allergy Anaphylaxis Verified 02/13/22 19:22 naproxen [From Naprosyn] Allergy Anaphylaxis Verified 02/13/22 19:22 Penicillins Allergy Anaphylaxis Verified 02/13/22 19:22 prednisone Allergy Swelling Verified 02/13/22 19:22 quetiapine fumarate Allergy Itching, Verified 02/13/22 19:22 [From Seroquel] leg cramps rofecoxib [From Vioxx] Allergy Itching, Verified 02/13/22 19:22 leg cramps terfenadine [From Seldane] Allergy Rash/Hives Verified 02/13/22 19:22 tramadol Allergy Nausea & Verified 02/13/22 19:22 Vomiting/LEG CRAMPS/HEART FLUTTERS calcium carbonate [From DHEA] AdvReac Chest Pain Verified 02/13/22 19:22 calcium phosphate,dibasic AdvReac Chest Pain Verified 02/13/22 19:22 [From DHEA] clindamycin AdvReac muscle Verified 02/13/22 19:22 cramps clonidine AdvReac fast Verified 02/13/22 19:22 heartbeat, migraine dextromethorphan HBr AdvReac face/neck Verified 02/13/22 19:22 [From NyQuil] flushing diazepam [From Valium] AdvReac Nausea & Verified 02/13/22 19:22 Vomiting divalproex sodium AdvReac Nausea & Verified 02/13/22 19:22 [From Depakote] Vomiting doxylamine [From NyQuil] AdvReac face "beet Verified 02/13/22 19:22 red", elevated temp. ibuprofen [From Motrin] AdvReac abdominal Verified 02/13/22 19:22 & muscle cramps indomethacin [From Indocin] AdvReac Abdominal Verified 02/13/22 19:22 Pain,N/V ketorolac tromethamine AdvReac "built up Verified 02/13/22 19:22 [From Toradol] in system", had to be given something to reverse lorazepam [From Ativan] AdvReac Nausea & Verified 02/13/22 19:22 Vomiting memantine [From Namenda] AdvReac Itching Verified 02/13/22 19:22 metoclopramide HCl AdvReac muscle Verified 02/13/22 19:22 [From Reglan] cramps nortriptyline [From Pamelor] AdvReac Chest Pain Verified 02/13/22 19:22 prasterone (DHEA) [From DHEA] AdvReac Chest Pain Verified 02/13/22 19:22 prochlorperazine AdvReac leg Verified 02/13/22 19:22 [From Compazine] cramping propranolol AdvReac Chest Pain Verified 02/13/22 19:22 pseudoephedrine HCl AdvReac face "beet Verified 02/13/22 19:22 [From NyQuil] red", elevated temp. quetiapine [From Seroquel] AdvReac leg Verified 02/13/22 19:22 cramping sumatriptan [From Imitrex] AdvReac migrane Verified 02/13/22 19:22 sumatriptan succinate AdvReac migrane Verified 02/13/22 19:22 [From Imitrex] topiramate [From Topamax] AdvReac "built up Verified 02/13/22 19:22 in system", had to be given something to reverse trazodone AdvReac "built up Verified 02/13/22 19:22 in system", had to be given something to reverse zolpidem tartrate AdvReac "Became Verified 02/13/22 19:22 [From Ambien] violent with no memory" zonisamide [From Zonegran] AdvReac inability Verified 02/13/22 19:22 to eat prosyn Allergy Itching Uncoded 02/13/22 19:22 artificial sweetener AdvReac SEVERE Uncoded 02/13/22 19:22 MIGRAINE HEADACHE Review of Systems ROS Statement: Those systems with pertinent positive or pertinent negative responses have been documented in the HPI. ROS Other: All systems not noted in ROS Statement are negative. Past Medical History Past Medical History: Hyperlipidemia, Hypertension, Seizure Disorder Additional Past Medical History / Comment(s): Migraines, viral meningitis x3 as a child, 1995, 2000, chronic back pain, nerve blocks 08/2016 and 12/2016. Last seizure 10/10/2020, "ABSENT SEIZURES. HX TACHYCARDIA, GBS/CIPD, PTSD. History of Any Multi-Drug Resistant Organisms: None Reported Past Surgical History: Appendectomy, Section, Cholecystectomy, Hernia Repair, Hysterectomy, Orthopedic Surgery, Tonsillectomy, Tubal Ligation Additional Past Surgical History / Comment(s): Hiatal Hernia, umbilical hernia repair, left rotator cuff repair, bilateral knee scopes, pain clinic procedures- occipital nerve block. abd exploratory sx(endometreosis), 3 abd scopes 1981, 1989, 1991), lumbar puncture. EGD. nerve biopsy, salvalry gland biospy Past Anesthesia/Blood Transfusion Reactions: No Reported Reaction Additional Past Anesthesia/Blood Transfusion Reaction / Comment(s): Claustrophobic Past Psychological History: Anxiety, Bipolar, Panic Disorder, PTSD Smoking Status: Current every day smoker Past Alcohol Use History: None Reported Past Drug Use History: None Reported - Past Family History Mother Family Medical History: Cancer, Dementia, Diabetes Mellitus, GERD/Reflux, Hyperlipidemia, Hypertension, Thyroid Disorder Additional Family Medical History / Comment(s): Quad CABG, cardiac stents, toes ampuated and left leg amputated Father History Unknown: Yes Family Medical History: No Reported History General Exam Limitations: no limitations General appearance: alert, in no apparent distress Head exam: Present: atraumatic, normocephalic, normal inspection Eye exam: Present: normal appearance, PERRL, EOMI. Absent: scleral icterus, conjunctival injection, periorbital swelling ENT exam: Present: normal exam, normal oropharynx, mucous membranes moist, TM's normal bilaterally, normal external ear exam. Absent: mucous membranes dry Neck exam: Present: normal inspection, full ROM. Absent: tenderness, meningismus, lymphadenopathy, thyromegaly Respiratory exam: Present: normal lung sounds bilaterally. Absent: respiratory distress, wheezes, rales, rhonchi, stridor, chest wall tenderness, accessory muscle use, decreased breath sounds, prolonged expiratory Cardiovascular Exam: Present: regular rate, normal rhythm, normal heart sounds. Absent: systolic murmur, diastolic murmur, rubs, gallop, clicks GI/Abdominal exam: Present: soft, normal bowel sounds. Absent: distended, tenderness, guarding, rebound, rigid Extremities exam: Present: normal inspection, full ROM, normal capillary refill. Absent: tenderness, pedal edema, joint swelling, calf tenderness Back exam: Present: normal inspection Neurological exam: Present: alert, oriented X3, CN II-XII intact, normal gait. Absent: motor sensory deficit Psychiatric exam: Present: normal affect, normal mood. Absent: depressed, agitated, anxious, flat affect, manic Skin exam: Present: warm, dry, intact, normal color. Absent: rash Course Vital Signs 02/13/22 02/13/22 02/13/22 19:18 20:05 21:24 Temperature 98.5 F 97.8 F 98.1 F Pulse Rate 108 H 108 H 90 Respiratory 20 18 16 Rate Blood Pressure 122/85 142/112 142/97 O2 Sat by Pulse 100 98 99 Oximetry 02/13/22 02/13/22 02/14/22 22:10 23:01 00:00 Temperature 98.1 F 97.9 F Pulse Rate 82 78 91 Respiratory 18 16 16 Rate Blood Pressure 137/89 137/98 137/96 O2 Sat by Pulse 100 99 100 Oximetry - Reevaluation(s) Reevaluation #1: 02/13/22 22:37 Patient reevaluated and states she has had no relief of the headache. Added on hydromorphone and magnesium. Reevaluation #2: 02/13/22 23:45 Patient states she feels well enough to go home. Patient asking for an Ativan prior to discharge so she can go home and sleep. We'll go ahead and order that. We'll have the patient follow-up with her primary care physician. She is to call tomorrow morning without fail. Medical Decision Making - Medical Decision Making Patient presents with headache consistent with her previous migraines. We'll try abortive treatment with diphenhydramine, metoclopramide, and butorphanol. Patient did receive an additional dose of Dilaudid 1 mg IV push as well as magnesium The case was discussed in detail with ED attending physician. Presentation, daquan flores, treatment plan discussed in detail. Patient was told to return to the ER for any signs or symptoms worsen. Told to return immediately if any other problems arise. All questions answered. Tr eatment plan discussed. Patient in agreement Every effort has been made to ensure accuracy of this dictation. However, due to the limitations of electronic medical records and dictation devices, errors in charting still occur. Supervising Dr. Mclaughlin 02/13/22 23:46 Disposition Clinical Impression: Recurrent headache Disposition: HOME SELF-CARE Condition: Good Instructions (If sedation given, give patient instructions): Migraine Headache (ED) Additional Instructions: Follow-up with your regular physician as directed. Return to the ER immediately if any symptoms worsen, new symptoms arise, or any other problems develop. Is patient prescribed a controlled substance at d/c from ED?: No Referrals: José Reece MD [Primary Care Provider] - 1-2 days Time of Disposition: 23:47
[2022-02-13] MEDS ORDERED: ONDANSETRON 4 MG/2 ML VIAL IVP STA (22:06)
[2022-02-13] MEDS ORDERED: MAGNESIUM SULFATE-D5W PMX 1 GM in DEXTROSE/WATER 1 100ML.BAG IVPB ONE (22:36)
[2022-02-13] MEDS ORDERED: HYDROmorphone 1 MG/ML 1 ML SYRINGE IVP STA (22:36)
[2022-02-13 23:02] VITALS: RESP 16
[2022-02-13] MEDS ORDERED: LORazepam 1 MG TAB PO STA (23:44)
[2022-02-14 00:01] VITALS: BP 137/96; PULSE 91; TEMP 97.9
== END 2022-02-14 00:06 | disposition home or self-care (01) ==
LOC: EC 18:53
DX: R51.9 Headache, unspecified (principal); E78.5 Hyperlipidemia, unspecified; I10 Essential (primary) hypertension; F41.9 Anxiety disorder, unspecified; F31.9 Bipolar disorder, unspecified; F43.10 Post-traumatic stress disorder, unspecified; F17.200 Nicotine dependence, unspecified, uncomplicated; Z79.83 Long term (current) use of bisphosphonates; Z79.02 Long term (current) use of antithrombotics/antiplatelets; Z79.899 Other long term (current) drug therapy; Z79.891 Long term (current) use of opiate analgesic; Z88.5 Allergy status to narcotic agent; Z88.9 Allergy status to unspecified drugs, medicaments and biological substances; Z88.1 Allergy status to other antibiotic agents; Z88.0 Allergy status to penicillin; Z88.6 Allergy status to analgesic agent; Z88.8 Allergy status to other drugs, medicaments and biological substances; Z91.018 Allergy to other foods
CPT/HCPCS: 99284; 96365; 96375 ×5; 96361 ×3; J1200; J0595; J2405; J1170; J3475

== ENCOUNTER 2022-02-18 20:22 | Emergency (ER) | payer OTHER ==
[2022-02-18 20:30] VITALS: BP 143/78; PULSE 112; RESP 20; TEMP 98.3
[2022-02-18] MEDS ORDERED: BUTORPHANOL 1 MG/ML 1 ML VIAL IV STA (20:36)
[2022-02-18] MEDS ORDERED: diphenhydrAMINE 50 MG/ML 1 ML VIAL IVP STA (20:36)
[2022-02-18] MEDS ORDERED: ONDANSETRON 4 MG/2 ML VIAL IVP STA (20:36)
[2022-02-18] MEDS ORDERED: SODIUM CHLORIDE 0.9% 1,000 ML IV STA (20:36)
[2022-02-18] MEDS ORDERED: HYDROmorphone 1 MG/ML 1 ML SYRINGE IVP STA (22:31)
[2022-02-18] MEDS ORDERED: LORazepam 2 MG/ML INJ IV STA (23:25)
--- NOTE | 2022-02-18 23:36 | ED ---
Headache HPI - General Chief Complaint: Headache Stated Complaint: Nausea,headache Time Seen by Provider: 02/18/22 20:33 Mode of arrival: wheelchair Limitations: no limitations - History of Present Illness Initial Comments: Patient is a 51-year-old female who presents to the emergency department with a chief complaint of migraine. Patient states migraine started 2 days ago, typ ical of her previous migraines. Patient is well-known to her emergency department. States she started her abortive medication at home without improvement. She also reports nausea without vomiting. Denies fever, chills, visual symptoms, upper respiratory symptoms,fever. - Related Data Home Medications Medication Instructions Recorded Confirmed amLODIPine [Norvasc] 5 mg PO HS 04/28/20 09/14/21 Omeprazole [PriLOSEC] 20 mg PO BID 12/15/20 09/14/21 Thiamine [Vitamin B-1] 100 mg PO HS 01/04/21 09/14/21 Atorvastatin [Lipitor] 40 mg PO HS 07/20/21 09/14/21 DULoxetine HCL [Cymbalta] 60 mg PO HS 07/20/21 09/14/21 buprenorphine HCL [Subutex] 1 mg SUBLINGUAL TID 07/20/21 09/14/21 Previous Rx's Medication Instructions Recorded HYDROcodone/APAP 7.5-325MG [[place] 1 tab PO TID PRN #12 tab 11/17/20 7.5-325] Lacosamide [Vimpat] 100 mg PO BID 7 Days #14 tab 01/16/21 Ondansetron Odt [Zofran Odt] 4 mg PO Q8HR PRN #10 tab 10/24/21 Potassium Chloride ER [K-Dur 20] 20 meq PO DAILY 3 Days #3 tab 01/24/22 Allergies Allergy/AdvReac Type Severity Reaction Status Date / Time dihydroergotamine Allergy Unknown Unknown Verified 02/18/22 20:30 [From Migranal] buprenorphine Allergy Rash/Hives Verified 02/18/22 20:30 gabapentin [From Neurontin] Allergy Itching/Swe Verified 02/18/22 20:30 lling latex Allergy Anaphylaxis Verified 02/18/22 20:30 naproxen [From Naprosyn] Allergy Anaphylaxis Verified 02/18/22 20:30 Penicillins Allergy Anaphylaxis Verified 02/18/22 20:30 prednisone Allergy Swelling Verified 02/18/22 20:30 quetiapine fumarate Allergy Itching, Verified 02/18/22 20:30 [From Seroquel] leg cramps rofecoxib [From Vioxx] Allergy Itching, Verified 02/18/22 20:30 leg cramps terfenadine [From Seldane] Allergy Rash/Hives Verified 02/18/22 20:30 tramadol Allergy Nausea & Verified 02/18/22 20:30 Vomiting/LEG CRAMPS/HEART FLUTTERS calcium carbonate [From DHEA] AdvReac Chest Pain Verified 02/18/22 20:30 calcium phosphate,dibasic AdvReac Chest Pain Verified 02/18/22 20:30 [From DHEA] clindamycin AdvReac muscle Verified 02/18/22 20:30 cramps clonidine AdvReac fast Verified 02/18/22 20:30 heartbeat, migraine dextromethorphan HBr AdvReac face/neck Verified 02/18/22 20:30 [From NyQuil] flushing diazepam [From Valium] AdvReac Nausea & Verified 02/18/22 20:30 Vomiting divalproex sodium AdvReac Nausea & Verified 02/18/22 20:30 [From Depakote] Vomiting doxylamine [From NyQuil] AdvReac face "beet Verified 02/18/22 20:30 red", elevated temp. ibuprofen [From Motrin] AdvReac abdominal Verified 02/18/22 20:30 & muscle cramps indomethacin [From Indocin] AdvReac Abdominal Verified 02/18/22 20:30 Pain,N/V ketorolac tromethamine AdvReac "built up Verified 02/18/22 20:30 [From Toradol] in system", had to be given something to reverse lorazepam [From Ativan] AdvReac Nausea & Verified 02/18/22 20:30 Vomiting memantine [From Namenda] AdvReac Itching Verified 02/18/22 20:30 metoclopramide HCl AdvReac muscle Verified 02/18/22 20:30 [From Reglan] cramps nortriptyline [From Pamelor] AdvReac Chest Pain Verified 02/18/22 20:30 prasterone (DHEA) [From DHEA] AdvReac Chest Pain Verified 02/18/22 20:30 prochlorperazine AdvReac leg Verified 02/18/22 20:30 [From Compazine] cramping propranolol AdvReac Chest Pain Verified 02/18/22 20:30 pseudoephedrine HCl AdvReac face "beet Verified 02/18/22 20:30 [From NyQuil] red", elevated temp. quetiapine [From Seroquel] AdvReac leg Verified 02/18/22 20:30 cramping sumatriptan [From Imitrex] AdvReac migrane Verified 02/18/22 20:30 sumatriptan succinate AdvReac migrane Verified 02/18/22 20:30 [From Imitrex] topiramate [From Topamax] AdvReac "built up Verified 02/18/22 20:30 in system", had to be given something to reverse trazodone AdvReac "built up Verified 02/18/22 20:30 in system", had to be given something to reverse zolpidem tartrate AdvReac "Became Verified 02/18/22 20:30 [From Ambien] violent with no memory" zonisamide [From Zonegran] AdvReac inability Verified 02/18/22 20:30 to eat prosyn Allergy Itching Uncoded 02/18/22 20:30 artificial sweetener AdvReac SEVERE Uncoded 02/18/22 20:30 MIGRAINE HEADACHE Review of Systems ROS Statement: Those systems with pertinent positive or pertinent negative responses have been documented in the HPI. ROS Other: All systems not noted in ROS Statement are negative. Past Medical History Past Medical History: Hyperlipidemia, Hypertension, Seizure Disorder Additional Past Medical History / Comment(s): Migraines, viral meningitis x3 as a child, 1995, 2000, chronic back pain, nerve blocks 08/2016 and 12/2016. Last seizure 10/10/2020, "ABSENT SEIZURES. HX TACHYCARDIA, GBS/CIPD, PTSD. History of Any Multi-Drug Resistant Organisms: None Reported Past Surgical History: Appendectomy, Section, Cholecystectomy, Hernia Repair, Hysterectomy, Orthopedic Surgery, Tonsillectomy, Tubal Ligation Additional Past Surgical History / Comment(s): Hiatal Hernia, umbilical hernia repair, left rotator cuff repair, bilateral knee scopes, pain clinic procedures- occipital nerve block. abd exploratory sx(endometreosis), 3 abd scopes 1981, 1989, 1991), lumbar puncture. EGD. nerve biopsy, salvalry gland biospy Past Anesthesia/Blood Transfusion Reactions: No Reported Reaction Additional Past Anesthesia/Blood Transfusion Reaction / Comment(s): Claustrophobic Past Psychological History: Anxiety, Bipolar, Panic Disorder, PTSD Smoking Status: Current every day smoker Past Alcohol Use History: None Reported Past Drug Use History: None Reported - Past Family History Mother Family Medical History: Cancer, Dementia, Diabetes Mellitus, GERD/Reflux, Hyperlipidemia, Hypertension, Thyroid Disorder Additional Family Medical History / Comment(s): Quad CABG, cardiac stents, toes ampuated and left leg amputated Father History Unknown: Yes Family Medical History: No Reported History General Exam Limitations: no limitations General appearance: alert, in no apparent distress Head exam: Present: atraumatic, normocephalic, normal inspection Eye exam: Present: normal appearance, PERRL, EOMI. Absent: scleral icterus, conjunctival injection, periorbital swelling Neck exam: Absent: meningismus Respiratory exam: Present: normal lung sounds bilaterally. Absent: respiratory distress, wheezes, rales, rhonchi, stridor Cardiovascular Exam: Present: regular rate, normal rhythm, normal heart sounds. Absent: systolic murmur, diastolic murmur, rubs, gallop, clicks Neurological exam: Present: alert, oriented X3, CN II-XII intact Skin exam: Present: warm, dry, intact, normal color. Absent: rash Course Vital Signs 02/18/22 20:28 Temperature 98.3 F Pulse Rate 112 H Respiratory 20 Rate Blood Pressure 143/78 O2 Sat by Pulse 100 Oximetry Medical Decision Making - Medical Decision Making This is a 51-year-old female presenting with migraine. Patient states Stadol works well for her migraines. She was given migraine cocktail including Stadol with little relief. She was then given Dilaudid which provided relief. Patient will be discharged with instruction to follow up with her neurologist. Dr. An is my attending. Disposition Clinical Impression: Migraine Disposition: HOME SELF-CARE Condition: Good Instructions (If sedation given, give patient instructions): Migraine Headache (ED) Additional Instructions: Follow-up with neurologist in one to 2 days. Return to emergency department experience new, concerning, or worsening symptoms. Is patient prescribed a controlled substance at d/c from ED?: No Referrals: José Reece MD [Primary Care Provider] - 1-2 days
== END 2022-02-18 23:47 | disposition home or self-care (01) ==
LOC: EC 20:22
DX: G43.909 Migraine, unspecified, not intractable, without status migrainosus (principal); E78.5 Hyperlipidemia, unspecified; I10 Essential (primary) hypertension; F41.9 Anxiety disorder, unspecified; F31.9 Bipolar disorder, unspecified; F17.200 Nicotine dependence, unspecified, uncomplicated; Z88.0 Allergy status to penicillin; Z88.2 Allergy status to sulfonamides; Z88.8 Allergy status to other drugs, medicaments and biological substances; Z79.899 Other long term (current) drug therapy
CPT/HCPCS: 99283; 96374; 96375 ×4; 96361 ×2; J2060; J1200; J0595; J2405; J1170

== ENCOUNTER 2022-03-08 22:18 | Emergency (ER) | payer OTHER ==
[2022-03-08] MEDS ORDERED: ONDANSETRON ODT 4 MG TAB PO STA (23:49)
[2022-03-08] MEDS ORDERED: diphenhydrAMINE 50 MG CAP PO STA (23:49)
[2022-03-08] MEDS ORDERED: HYDROmorphone 1 MG/ML 1 ML SYRINGE IM STA (23:49)
--- NOTE | 2022-03-08 23:50 | ED ---
Headache HPI - General Chief Complaint: Headache Stated Complaint: Migraine,vomiting Time Seen by Provider: 03/08/22 23:41 Source: RN notes reviewed, old records reviewed Mode of arrival: wheelchair Limitations: no limitations - History of Present Illness Initial Comments: Physical 52-year-old female well-known to our ER for evaluation of headache. Severe headache history of same. This is her chronic migraine similar migraine is normal. Mild nausea no active current vomiting. Patient does not feel well no neurological findings no trauma no fever MD Complaint: headache, "migraine" -: hour(s) Onset Description: gradual Location: right, left, frontal Severity: severe Severity scale (1-10): 9 Quality: aching, throbbing, pulsatile Consistency: constant Improves With: nothing Worsens With: none Associated Symptoms: nausea Other Symptoms: malaise Treatments Prior to Arrival: none - Related Data Home Medications Medication Instructions Recorded Confirmed amLODIPine [Norvasc] 5 mg PO HS 04/28/20 09/14/21 Omeprazole [PriLOSEC] 20 mg PO BID 12/15/20 09/14/21 Thiamine [Vitamin B-1] 100 mg PO HS 01/04/21 09/14/21 Atorvastatin [Lipitor] 40 mg PO HS 07/20/21 09/14/21 DULoxetine HCL [Cymbalta] 60 mg PO HS 07/20/21 09/14/21 buprenorphine HCL [Subutex] 1 mg SUBLINGUAL TID 07/20/21 09/14/21 Previous Rx's Medication Instructions Recorded HYDROcodone/APAP 7.5-325MG [[place] 1 tab PO TID PRN #12 tab 11/17/20 7.5-325] Lacosamide [Vimpat] 100 mg PO BID 7 Days #14 tab 01/16/21 Ondansetron Odt [Zofran Odt] 4 mg PO Q8HR PRN #10 tab 10/24/21 Potassium Chloride ER [K-Dur 20] 20 meq PO DAILY 3 Days #3 tab 01/24/22 Allergies Allergy/AdvReac Type Severity Reaction Status Date / Time dihydroergotamine Allergy Unknown Unknown Verified 03/08/22 22:22 [From Migranal] buprenorphine Allergy Rash/Hives Verified 03/08/22 22:22 gabapentin [From Neurontin] Allergy Itching/Swe Verified 03/08/22 22:22 lling latex Allergy Anaphylaxis Verified 03/08/22 22:22 naproxen [From Naprosyn] Allergy Anaphylaxis Verified 03/08/22 22:22 Penicillins Allergy Anaphylaxis Verified 03/08/22 22:22 prednisone Allergy Swelling Verified 03/08/22 22:22 quetiapine fumarate Allergy Itching, Verified 03/08/22 22:22 [From Seroquel] leg cramps rofecoxib [From Vioxx] Allergy Itching, Verified 03/08/22 22:22 leg cramps terfenadine [From Seldane] Allergy Rash/Hives Verified 03/08/22 22:22 tramadol Allergy Nausea & Verified 03/08/22 22:22 Vomiting/LEG CRAMPS/HEART FLUTTERS calcium carbonate [From DHEA] AdvReac Chest Pain Verified 03/08/22 22:22 calcium phosphate,dibasic AdvReac Chest Pain Verified 03/08/22 22:22 [From DHEA] clindamycin AdvReac muscle Verified 03/08/22 22:22 cramps clonidine AdvReac fast Verified 03/08/22 22:22 heartbeat, migraine dextromethorphan HBr AdvReac face/neck Verified 03/08/22 22:22 [From NyQuil] flushing diazepam [From Valium] AdvReac Nausea & Verified 03/08/22 22:22 Vomiting divalproex sodium AdvReac Nausea & Verified 03/08/22 22:22 [From Depakote] Vomiting doxylamine [From NyQuil] AdvReac face "beet Verified 03/08/22 22:22 red", elevated temp. ibuprofen [From Motrin] AdvReac abdominal Verified 03/08/22 22:22 & muscle cramps indomethacin [From Indocin] AdvReac Abdominal Verified 03/08/22 22:22 Pain,N/V ketorolac tromethamine AdvReac "built up Verified 03/08/22 22:22 [From Toradol] in system", had to be given something to reverse lorazepam [From Ativan] AdvReac Nausea & Verified 03/08/22 22:22 Vomiting memantine [From Namenda] AdvReac Itching Verified 03/08/22 22:22 metoclopramide HCl AdvReac muscle Verified 03/08/22 22:22 [From Reglan] cramps nortriptyline [From Pamelor] AdvReac Chest Pain Verified 03/08/22 22:22 prasterone (DHEA) [From DHEA] AdvReac Chest Pain Verified 03/08/22 22:22 prochlorperazine AdvReac leg Verified 03/08/22 22:22 [From Compazine] cramping propranolol AdvReac Chest Pain Verified 03/08/22 22:22 pseudoephedrine HCl AdvReac face "beet Verified 03/08/22 22:22 [From NyQuil] red", elevated temp. quetiapine [From Seroquel] AdvReac leg Verified 03/08/22 22:22 cramping sumatriptan [From Imitrex] AdvReac migrane Verified 03/08/22 22:22 sumatriptan succinate AdvReac migrane Verified 03/08/22 22:22 [From Imitrex] topiramate [From Topamax] AdvReac "built up Verified 03/08/22 22:22 in system", had to be given something to reverse trazodone AdvReac "built up Verified 03/08/22 22:22 in system", had to be given something to reverse zolpidem tartrate AdvReac "Became Verified 03/08/22 22:22 [From Ambien] violent with no memory" zonisamide [From Zonegran] AdvReac inability Verified 03/08/22 22:22 to eat prosyn Allergy Itching Uncoded 03/08/22 22:22 artificial sweetener AdvReac SEVERE Uncoded 03/08/22 22:22 MIGRAINE HEADACHE Review of Systems ROS Statement: Those systems with pertinent positive or pertinent negative responses have been documented in the HPI. ROS Other: All systems not noted in ROS Statement are negative. Past Medical History Past Medical History: Hyperlipidemia, Hypertension, Seizure Disorder Additional Past Medical History / Comment(s): Migraines, viral meningitis x3 as a child, 1995, 2000, chronic back pain, nerve blocks 08/2016 and 12/2016. Last seizure 10/10/2020, "ABSENT SEIZURES. HX TACHYCARDIA, GBS/CIPD, PTSD. History of Any Multi-Drug Resistant Organisms: None Reported Past Surgical History: Appendectomy, Section, Cholecystectomy, Hernia Repair, Hysterectomy, Orthopedic Surgery, Tonsillectomy, Tubal Ligation Additional Past Surgical History / Comment(s): Hiatal Hernia, umbilical hernia repair, left rotator cuff repair, bilateral knee scopes, pain clinic procedures- occipital nerve block. abd exploratory sx(endometreosis), 3 abd scopes 1981, 1989, 1991), lumbar puncture. EGD. nerve biopsy, salvalry gland biospy Past Anesthesia/Blood Transfusion Reactions: No Reported Reaction Additional Past Anesthesia/Blood Transfusion Reaction / Comment(s): Claustrophobic Past Psychological History: Anxiety, Bipolar, Panic Disorder, PTSD Smoking Status: Current every day smoker Past Alcohol Use History: None Reported Past Drug Use History: None Reported - Past Family History Mother Family Medical History: Cancer, Dementia, Diabetes Mellitus, GERD/Reflux, Hyperlipidemia, Hypertension, Thyroid Disorder Additional Family Medical History / Comment(s): Quad CABG, cardiac stents, toes ampuated and left leg amputated Father History Unknown: Yes Family Medical History: No Reported History General Exam Limitations: no limitations General appearance: alert, in no apparent distress, anxious Head exam: Present: atraumatic, normocephalic, normal inspection Eye exam: Present: normal appearance, PERRL, EOMI. Absent: scleral icterus, conjunctival injection, periorbital swelling ENT exam: Present: normal exam, mucous membranes moist Neck exam: Present: normal inspection. Absent: tenderness, meningismus, lymphadenopathy Respiratory exam: Present: normal lung sounds bilaterally. Absent: respiratory distress, wheezes, rales, rhonchi, stridor Cardiovascular Exam: Present: regular rate, normal rhythm, normal heart sounds. Absent: systolic murmur, diastolic murmur, rubs, gallop, clicks GI/Abdominal exam: Present: soft, normal bowel sounds. Absent: distended, t enderness, guarding, rebound, rigid Extremities exam: Present: normal inspection, full ROM, normal capillary refill. Absent: tenderness, pedal edema, joint swelling, calf tenderness Back exam: Present: normal inspection Neurological exam: Present: alert, oriented X3, CN II-XII intact Psychiatric exam: Present: normal affect, normal mood Skin exam: Present: warm, dry, intact, normal color. Absent: rash Course Vital Signs 03/08/22 22:20 Temperature 98.2 F Pulse Rate 118 H Respiratory 20 Rate Blood Pressure 148/87 O2 Sat by Pulse 100 Oximetry - Reevaluation(s) Reevaluation #1: 03/09/22 00:18 Medical record is reviewed Reevaluation #2: 03/09/22 00:18 Headache is resolved Reevaluation #3: 03/09/22 00:18 Patient informed results and questions answered Medical Decision Making - Medical Decision Making 52 female to the emergency department for evaluation of headache. Headache resolved here in the ER patient can be discharged home Disposition Clinical Impression: Headache, Chronic pain, Migraine, Recurrent headache Disposition: HOME SELF-CARE Condition: Fair Instructions (If sedation given, give patient instructions): Acute Headache (ED) Is patient prescribed a controlled substance at d/c from ED?: No Referrals: José Reece MD [Primary Care Provider] - 1-2 days Time of Disposition: 00:20
[2022-03-09] MEDS ORDERED: LORazepam 1 MG TAB PO STA (00:43)
[2022-03-09 01:30] VITALS: BP 140/101; PULSE 121; RESP 19; TEMP 97.5
== END 2022-03-09 01:30 | disposition home or self-care (01) ==
LOC: EC 22:18
DX: G43.911 Migraine, unspecified, intractable, with status migrainosus (principal); G89.29 Other chronic pain; I10 Essential (primary) hypertension; G40.909 Epilepsy, unspecified, not intractable, without status epilepticus; E78.5 Hyperlipidemia, unspecified; F41.9 Anxiety disorder, unspecified; F31.9 Bipolar disorder, unspecified; F17.200 Nicotine dependence, unspecified, uncomplicated; Z91.018 Allergy to other foods; Z88.8 Allergy status to other drugs, medicaments and biological substances; Z88.2 Allergy status to sulfonamides; Z88.1 Allergy status to other antibiotic agents; Z88.0 Allergy status to penicillin; Z91.040 Latex allergy status; Z79.899 Other long term (current) drug therapy
CPT/HCPCS: 99283; 96372; J1170

== ENCOUNTER 2022-03-10 19:46 | Emergency (ER) | payer OTHER ==
[2022-03-10 21:05] VITALS: RESP 20; TEMP 98.2
[2022-03-10] MEDS ORDERED: ONDANSETRON 4 MG/2 ML VIAL IVP STA (21:25)
[2022-03-10] MEDS ORDERED: BUTORPHANOL 1 MG/ML 1 ML VIAL IV PRN (21:25)
[2022-03-10] MEDS ORDERED: SODIUM CHLORIDE 0.9% 2,000 ML IV STA (21:26)
[2022-03-10] MEDS ORDERED: diphenhydrAMINE 50 MG/ML 1 ML VIAL IVP STA (21:27)
[2022-03-10 22:32] LABS: Basophils % (A) 1 %; Eosinophils # (A) 0.1 k/uL (0-0.7); Eosinophils % (A) 1 %; HCT 37.4 % (34.0-46.0); HGB 12.5 gm/dL (11.4-16.0); Lymphocytes # (A) 1.3 k/uL (1.0-4.8); Lymphocytes % (A) 17 %; MCHC 33.6 g/dL (31.0-37.0); Mean Platelet Volume 9.4; Monocytes # (A) 0.4 k/uL (0-1.0); Monocytes % (A) 5 %; Neutrophils # (A) 5.5 k/uL (1.3-7.7); Neutrophils % (A) 74 %; Platelet Count 266 k/uL (150-450); RBC 3.93 m/uL (3.80-5.40); RDW 15.7 % (11.5-15.5); WBC 7.5 k/uL (3.8-10.6)
[2022-03-10 22:36] LABS: MCV 95.2 fL (80.0-100.0)
[2022-03-10 22:39] LABS: ALT 19 U/L (4-34); AST 20 U/L (14-36); African American GFR (CKD) >90 (>60 ml/min/1.73 sqM); Albumin 3.8 g/dL (3.5-5.0); Alkaline Phosphatase 165 U/L (38-126); Anion Gap 6 mmol/L; Blood Urea Nitrogen 6 mg/dL (7-17); Calcium 8.7 mg/dL (8.4-10.2); Carbon Dioxide 29 mmol/L (22-30); Chloride 103 mmol/L (98-107); Glucose 96 mg/dL (74-99); Non-African American GFR(CKD) 88 (>60 ml/min/1.73 sqM); Potassium 4.2 mmol/L (3.5-5.1); Sodium 138 mmol/L (137-145); Total Bilirubin 0.3 mg/dL (0.2-1.3); Total Protein 6.5 g/dL (6.3-8.2)
--- NOTE | 2022-03-10 22:48 | ED ---
Headache HPI - General Chief Complaint: Headache Stated Complaint: seizure, nausea, vomiting Time Seen by Provider: 03/10/22 21:08 Mode of arrival: wheelchair Limitations: no limitations - History of Present Illness Initial Comments: This is a 52-year-old female who presents to the emergency department with chief complaint of migraine. Patient is very well-known to our facility. She presents often for migraine. Patient states today's migraine is typical of her previous migraines. She also reports nausea and vomiting, as well as multiple seizures today. Patient typically has seizures daily. She has not been on her seizure medication for some time. States she was initially on Vimpat however had issues with her neurologist Dr. Cid who will no longer prescribe her me dication. Patient states she is currently waiting for an opening to see Dr. Fang. She denies limb weakness, chest pain, shortness of breath, neck pain, fever. - Related Data Home Medications Medication Instructions Recorded Confirmed amLODIPine [Norvasc] 5 mg PO HS 04/28/20 09/14/21 Omeprazole [PriLOSEC] 20 mg PO BID 12/15/20 09/14/21 Thiamine [Vitamin B-1] 100 mg PO HS 01/04/21 09/14/21 Atorvastatin [Lipitor] 40 mg PO HS 07/20/21 09/14/21 DULoxetine HCL [Cymbalta] 60 mg PO HS 07/20/21 09/14/21 buprenorphine HCL [Subutex] 1 mg SUBLINGUAL TID 07/20/21 09/14/21 Previous Rx's Medication Instructions Recorded HYDROcodone/APAP 7.5-325MG [[place] 1 tab PO TID PRN #12 tab 11/17/20 7.5-325] Lacosamide [Vimpat] 100 mg PO BID 7 Days #14 tab 01/16/21 Ondansetron Odt [Zofran Odt] 4 mg PO Q8HR PRN #10 tab 10/24/21 Potassium Chloride ER [K-Dur 20] 20 meq PO DAILY 3 Days #3 tab 01/24/22 Allergies Allergy/AdvReac Type Severity Reaction Status Date / Time dihydroergotamine Allergy Unknown Unknown Verified 03/10/22 21:05 [From Migranal] buprenorphine Allergy Rash/Hives Verified 03/10/22 21:05 gabapentin [From Neurontin] Allergy Itching/Swe Verified 03/10/22 21:05 lling latex Allergy Anaphylaxis Verified 03/10/22 21:05 naproxen [From Naprosyn] Allergy Anaphylaxis Verified 03/10/22 21:05 Penicillins Allergy Anaphylaxis Verified 03/10/22 21:05 prednisone Allergy Swelling Verified 03/10/22 21:05 quetiapine fumarate Allergy Itching, Verified 03/10/22 21:05 [From Seroquel] leg cramps rofecoxib [From Vioxx] Allergy Itching, Verified 03/10/22 21:05 leg cramps terfenadine [From Seldane] Allergy Rash/Hives Verified 03/10/22 21:05 tramadol Allergy Nausea & Verified 03/10/22 21:05 Vomiting/LEG CRAMPS/HEART FLUTTERS calcium carbonate [From DHEA] AdvReac Chest Pain Verified 03/10/22 21:05 calcium phosphate,dibasic AdvReac Chest Pain Verified 03/10/22 21:05 [From DHEA] clindamycin AdvReac muscle Verified 03/10/22 21:05 cramps clonidine AdvReac fast Verified 03/10/22 21:05 heartbeat, migraine dextromethorphan HBr AdvReac face/neck Verified 03/10/22 21:05 [From NyQuil] flushing diazepam [From Valium] AdvReac Nausea & Verified 03/10/22 21:05 Vomiting divalproex sodium AdvReac Nausea & Verified 03/10/22 21:05 [From Depakote] Vomiting doxylamine [From NyQuil] AdvReac face "beet Verified 03/10/22 21:05 red", elevated temp. ibuprofen [From Motrin] AdvReac abdominal Verified 03/10/22 21:05 & muscle cramps indomethacin [From Indocin] AdvReac Abdominal Verified 03/10/22 21:05 Pain,N/V ketorolac tromethamine AdvReac "built up Verified 03/10/22 21:05 [From Toradol] in system", had to be given something to reverse lorazepam [From Ativan] AdvReac Nausea & Verified 03/10/22 21:05 Vomiting memantine [From Namenda] AdvReac Itching Verified 03/10/22 21:05 metoclopramide HCl AdvReac muscle Verified 03/10/22 21:05 [From Reglan] cramps nortriptyline [From Pamelor] AdvReac Chest Pain Verified 03/10/22 21:05 prasterone (DHEA) [From DHEA] AdvReac Chest Pain Verified 03/10/22 21:05 prochlorperazine AdvReac leg Verified 03/10/22 21:05 [From Compazine] cramping propranolol AdvReac Chest Pain Verified 03/10/22 21:05 pseudoephedrine HCl AdvReac face "beet Verified 03/10/22 21:05 [From NyQuil] red", elevated temp. quetiapine [From Seroquel] AdvReac leg Verified 03/10/22 21:05 cramping sumatriptan [From Imitrex] AdvReac migrane Verified 03/10/22 21:05 sumatriptan succinate AdvReac migrane Verified 03/10/22 21:05 [From Imitrex] topiramate [From Topamax] AdvReac "built up Verified 03/10/22 21:05 in system", had to be given something to reverse trazodone AdvReac "built up Verified 03/10/22 21:05 in system", had to be given something to reverse zolpidem tartrate AdvReac "Became Verified 03/10/22 21:05 [From Ambien] violent with no memory" zonisamide [From Zonegran] AdvReac inability Verified 03/10/22 21:05 to eat prosyn Allergy Itching Uncoded 03/10/22 21:05 artificial sweetener AdvReac SEVERE Uncoded 03/10/22 21:05 MIGRAINE HEADACHE Review of Systems ROS Statement: Those systems with pertinent positive or pertinent negative responses have been documented in the HPI. ROS Other: All systems not noted in ROS Statement are negative. Past Medical History Past Medical History: Hyperlipidemia, Hypertension, Seizure Disorder Additional Past Medical History / Comment(s): Migraines, viral meningitis x3 as a child, 1995, 2000, chronic back pain, nerve blocks 08/2016 and 12/2016. Last seizure 10/10/2020, "ABSENT SEIZURES. HX TACHYCARDIA, GBS/CIPD, PTSD. History of Any Multi-Drug Resistant Organisms: None Reported Past Surgical History: Appendectomy, Section, Cholecystectomy, Hernia Repair, Hysterectomy, Orthopedic Surgery, Tonsillectomy, Tubal Ligation Additional Past Surgical History / Comment(s): Hiatal Hernia, umbilical hernia repair, left rotator cuff repair, bilateral knee scopes, pain clinic procedures- occipital nerve block. abd exploratory sx(endometreosis), 3 abd scopes 1981, 1989, 1991), lumbar puncture. EGD. nerve biopsy, salvalry gland biospy Past Anesthesia/Blood Transfusion Reactions: No Reported Reaction Additional Past Anesthesia/Blood Transfusion Reaction / Comment(s): Claustrophobic Past Psychological History: Anxiety, Bipolar, Panic Disorder, PTSD Smoking Status: Current every day smoker Past Alcohol Use History: None Reported Past Drug Use History: None Reported - Past Family History Mother Family Medical History: Cancer, Dementia, Diabetes Mellitus, GERD/Reflux, Hyperlipidemia, Hypertension, Thyroid Disorder Additional Family Medical History / Comment(s): Quad CABG, cardiac stents, toes ampuated and left leg amputated Father History Unknown: Yes Family Medical History: No Reported History General Exam Limitations: no limitations General appearance: alert, in no apparent distress Head exam: Present: atraumatic, normocephalic, normal inspection Eye exam: Present: normal appearance, PERRL, EOMI. Absent: scleral icterus, conjunctival injection, periorbital swelling Respiratory exam: Present: normal lung sounds bilaterally. Absent: respiratory distress, wheezes, rales, rhonchi, stridor Cardiovascular Exam: Present: regular rate, normal rhythm, normal heart sounds. Absent: systolic murmur, diastolic murmur, rubs, gallop, clicks Extremities exam: Present: normal inspection, full ROM Neurological exam: Present: alert, oriented X3, CN II-XII intact Psychiatric exam: Present: normal affect, normal mood Skin exam: Present: warm, dry, intact, normal color. Absent: rash Course Vital Signs 03/10/22 03/10/22 03/10/22 21:04 22:16 23:07 Temperature 98.2 F Pulse Rate 101 H 95 102 H Respiratory 20 20 Rate Blood Pressure 122/85 125/93 O2 Sat by Pulse 97 98 Oximetry Medical Decision Making - Medical Decision Making This is a 52-year-old female presenting with migraine and seizure. She is alert and oriented 4. She is not post ictal. Laboratory studies obtained and are relatively unremarkable. Lactic acid is within normal limits. Patient given migraine cocktail which included Stadol as she states this is the only medication that works for her pain. Upon discharge patient did complain of poor pain control. An additional dose was given and patient was instructed that she needs to follow up with her neurologist. Patient observed closely in the emergency department did not have any seizure-like activity. Patient discharged home in stable condition. Dr. An is my attending. - Lab Data Result diagrams: 03/10/22 22:04 03/10/22 22:04 Lab Results 03/10/22 03/10/22 03/10/22 Range/Units 22:04 22: 22:04 WBC 7.5 (3.8-10.6) k/uL RBC 3.93 (3.80-5.40) m/uL Hgb 12.5 (11.4-16.0) gm/dL Hct 37.4 (34.0-46.0) % MCV 95.2 D (80.0-100.0) fL MCH 32.0 (25.0-35.0) pg MCHC 33.6 (31.0-37.0) g/dL RDW 15.7 H (11.5-15.5) % Plt Count 266 (150-450) k/uL MPV 9.4 Neutrophils % 74 % Lymphocytes % 17 % Monocytes % 5 % Eosinophils % 1 % Basophils % 1 % Neutrophils # 5.5 (1.3-7.7) k/uL Lymphocytes # 1.3 (1.0-4.8) k/uL Monocytes # 0.4 (0-1.0) k/uL Eosinophils # 0.1 (0-0.7) k/uL Basophils # 0.0 (0-0.2) k/uL Sodium 138 (137-145) mmol/L Potassium 4.2 (3.5-5.1) mmol/L Chloride 103 (98-107) mmol/L Carbon Dioxide 29 (22-30) mmol/L Anion Gap 6 mmol/L BUN 6 L (7-17) mg/dL Creatinine 0.79 (0.52-1.04) mg/dL Est GFR (CKD-EPI)AfAm >90 (>60 ml/min/1.73 sqM) Est GFR (CKD-EPI)NonAf 88 (>60 ml/min/1.73 sqM) Glucose 96 (74-99) mg/dL Plasma Lactic Acid Ed 1.0 (0.7-2.0) mmol/L Calcium 8.7 (8.4-10.2) mg/dL Total Bilirubin 0.3 (0.2-1.3) mg/dL AST 20 (14-36) U/L ALT 19 (4-34) U/L Alkaline Phosphatase 165 H (38-126) U/L Total Protein 6.5 (6.3-8.2) g/dL Albumin 3.8 (3.5-5.0) g/dL Disposition Clinical Impression: Seizure, Migraine, Nausea and vomiting, Recurrent headache Disposition: HOME SELF-CARE Condition: Good Instructions (If sedation given, give patient instructions): Seizure/Epilepsy Discharge Instructions & Follow-Up, Migraine Headache (ED) Additional Instructions: Follow-up with neurologist in one to 2 days. Return to the emergency department if you experience new, concerning, or worsening symptoms. Is patient prescribed a controlled substance at d/c from ED?: No Referrals: José Reece MD [Primary Care Provider] - 1-2 days
[2022-03-10] MEDS ORDERED: BUTORPHANOL 1 MG/ML 1 ML VIAL IV STA (22:55)
[2022-03-10 23:08] VITALS: BP 125/93; PULSE 102
== END 2022-03-10 23:15 | disposition home or self-care (01) ==
LOC: EC 19:46
DX: G43.909 Migraine, unspecified, not intractable, without status migrainosus (principal); R11.2 Nausea with vomiting, unspecified; R56.9 Unspecified convulsions; E78.5 Hyperlipidemia, unspecified; I10 Essential (primary) hypertension; F41.9 Anxiety disorder, unspecified; F31.9 Bipolar disorder, unspecified; F17.200 Nicotine dependence, unspecified, uncomplicated; Z88.8 Allergy status to other drugs, medicaments and biological substances; Z91.040 Latex allergy status; Z88.0 Allergy status to penicillin; Z91.018 Allergy to other foods; Z79.899 Other long term (current) drug therapy
CPT/HCPCS: 36415; 80053; 83605; 85025; 99283; 96374; 96375 ×2; 96361; 96376; J1200; J0595; J2405

== ENCOUNTER 2022-03-13 22:07 | Emergency (ER) | payer OTHER ==
[2022-03-13 23:39] VITALS: TEMP 98
[2022-03-14] MEDS ORDERED: HYDROmorphone 1 MG/ML 1 ML SYRINGE IM STA ×2 (02:16→03:04)
[2022-03-14] MEDS ORDERED: diphenhydrAMINE 50 MG CAP PO STA (02:16)
[2022-03-14] MEDS ORDERED: ONDANSETRON ODT 4 MG TAB PO STA (02:17)
--- NOTE | 2022-03-14 02:18 | ED ---
Headache HPI - General Chief Complaint: Headache Stated Complaint: Migrane, Fever Time Seen by Provider: 03/14/22 01:50 Source: RN notes reviewed, old records reviewed Mode of arrival: ambulatory Limitations: no limitations - History of Present Illness Initial Comments: This is a 52-year-old female DF for evaluation patient Dese for evaluation regards to headache acute on chronic headache and migraine. Patient's headache and migraine is worse than normal. And the a other phthous side of her head. Patient has no trauma no fevers no other complaints MD Complaint: headache, "migraine" -: days(s) Onset Description: gradual Location: left, frontal, temporal Severity: severe Severity scale (1-10): 10 Quality: aching, throbbing, pulsatile Consistency: constant Improves With: nothing Worsens With: none Associated Symptoms: nausea Other Symptoms: other (0) Treatments Prior to Arrival: none - Related Data Home Medications Medication Instructions Recorded Confirmed amLODIPine [Norvasc] 5 mg PO HS 04/28/20 09/14/21 Omeprazole [PriLOSEC] 20 mg PO BID 12/15/20 09/14/21 Thiamine [Vitamin B-1] 100 mg PO HS 01/04/21 09/14/21 Atorvastatin [Lipitor] 40 mg PO HS 07/20/21 09/14/21 DULoxetine HCL [Cymbalta] 60 mg PO HS 07/20/21 09/14/21 buprenorphine HCL [Subutex] 1 mg SUBLINGUAL TID 07/20/21 09/14/21 Previous Rx's Medication Instructions Recorded HYDROcodone/APAP 7.5-325MG [[place] 1 tab PO TID PRN #12 tab 11/17/20 7.5-325] Lacosamide [Vimpat] 100 mg PO BID 7 Days #14 tab 01/16/21 Ondansetron Odt [Zofran Odt] 4 mg PO Q8HR PRN #10 tab 10/24/21 Potassium Chloride ER [K-Dur 20] 20 meq PO DAILY 3 Days #3 tab 01/24/22 Allergies Allergy/AdvReac Type Severity Reaction Status Date / Time dihydroergotamine Allergy Unknown Unknown Verified 03/10/22 21:05 [From Migranal] buprenorphine Allergy Rash/Hives Verified 03/10/22 21:05 gabapentin [From Neurontin] Allergy Itching/Swe Verified 03/10/22 21:05 lling latex Allergy Anaphylaxis Verified 03/10/22 21:05 naproxen [From Naprosyn] Allergy Anaphylaxis Verified 03/10/22 21:05 Penicillins Allergy Anaphylaxis Verified 03/10/22 21:05 prednisone Allergy Swelling Verified 03/10/22 21:05 quetiapine fumarate Allergy Itching, Verified 03/10/22 21:05 [From Seroquel] leg cramps rofecoxib [From Vioxx] Allergy Itching, Verified 03/10/22 21:05 leg cramps terfenadine [From Seldane] Allergy Rash/Hives Verified 03/10/22 21:05 tramadol Allergy Nausea & Verified 03/10/22 21:05 Vomiting/LEG CRAMPS/HEART FLUTTERS calcium carbonate [From DHEA] AdvReac Chest Pain Verified 03/10/22 21:05 calcium phosphate,dibasic AdvReac Chest Pain Verified 03/10/22 21:05 [From DHEA] clindamycin AdvReac muscle Verified 03/10/22 21:05 cramps clonidine AdvReac fast Verified 03/10/22 21:05 heartbeat, migraine dextromethorphan HBr AdvReac face/neck Verified 03/10/22 21:05 [From NyQuil] flushing diazepam [From Valium] AdvReac Nausea & Verified 03/10/22 21:05 Vomiting divalproex sodium AdvReac Nausea & Verified 03/10/22 21:05 [From Depakote] Vomiting doxylamine [From NyQuil] AdvReac face "beet Verified 03/10/22 21:05 red", elevated temp. ibuprofen [From Motrin] AdvReac abdominal Verified 03/10/22 21:05 & muscle cramps indomethacin [From Indocin] AdvReac Abdominal Verified 03/10/22 21:05 Pain,N/V ketorolac tromethamine AdvReac "built up Verified 03/10/22 21:05 [From Toradol] in system", had to be given something to reverse lorazepam [From Ativan] AdvReac Nausea & Verified 03/10/22 21:05 Vomiting memantine [From Namenda] AdvReac Itching Verified 03/10/22 21:05 metoclopramide HCl AdvReac muscle Verified 03/10/22 21:05 [From Reglan] cramps nortriptyline [From Pamelor] AdvReac Chest Pain Verified 03/10/22 21:05 prasterone (DHEA) [From DHEA] AdvReac Chest Pain Verified 03/10/22 21:05 prochlorperazine AdvReac leg Verified 03/10/22 21:05 [From Compazine] cramping propranolol AdvReac Chest Pain Verified 03/10/22 21:05 pseudoephedrine HCl AdvReac face "beet Verified 03/10/22 21:05 [From NyQuil] red", elevated temp. quetiapine [From Seroquel] AdvReac leg Verified 03/10/22 21:05 cramping sumatriptan [From Imitrex] AdvReac migrane Verified 03/10/22 21:05 sumatriptan succinate AdvReac migrane Verified 03/10/22 21:05 [From Imitrex] topiramate [From Topamax] AdvReac "built up Verified 03/10/22 21:05 in system", had to be given something to reverse trazodone AdvReac "built up Verified 03/10/22 21:05 in system", had to be given something to reverse zolpidem tartrate AdvReac "Became Verified 03/10/22 21:05 [From Ambien] violent with no memory" zonisamide [From Zonegran] AdvReac inability Verified 03/10/22 21:05 to eat prosyn Allergy Itching Uncoded 03/10/22 21:05 artificial sweetener AdvReac SEVERE Uncoded 03/10/22 21:05 MIGRAINE HEADACHE Review of Systems ROS Statement: Those systems with pertinent positive or pertinent negative responses have been documented in the HPI. ROS Other: All systems not noted in ROS Statement are negative. Past Medical History Past Medical History: Hyperlipidemia, Hypertension, Seizure Disorder Additional Past Medical History / Comment(s): Migraines, viral meningitis x3 as a child, 1995, 2000, chronic back pain, nerve blocks 08/2016 and 12/2016. Last seizure 10/10/2020, "ABSENT SEIZURES. HX TACHYCARDIA, GBS/CIPD, PTSD. History of Any Multi-Drug Resistant Organisms: None Reported Past Surgical History: Appendectomy, Section, Cholecystectomy, Hernia Repair, Hysterectomy, Orthopedic Surgery, Tonsillectomy, Tubal Ligation Additional Past Surgical History / Comment(s): Hiatal Hernia, umbilical hernia repair, left rotator cuff repair, bilateral knee scopes, pain clinic procedures- occipital nerve block. abd exploratory sx(endometreosis), 3 abd scopes 1981, 1989, 1991), lumbar puncture. EGD. nerve biopsy, salvalry gland biospy Past Anesthesia/Blood Transfusion Reactions: No Reported Reaction Additional Past Anesthesia/Blood Transfusion Reaction / Comment(s): Claustrophobic Past Psychological History: Anxiety, Bipolar, Panic Disorder, PTSD Smoking Status: Current every day smoker Past Alcohol Use History: None Reported Past Drug Use History: None Reported - Past Family History Mother Family Medical History: Cancer, Dementia, Diabetes Mellitus, GERD/Reflux, Hyperlipidemia, Hypertension, Thyroid Disorder Additional Family Medical History / Comment(s): Quad CABG, cardiac stents, toes ampuated and left leg amputated Father History Unknown: Yes Family Medical History: No Reported History General Exam Limitations: no limitations General appearance: alert, in no apparent distress Head exam: Present: atraumatic, normocephalic, normal inspection Eye exam: Present: normal appearance, PERRL, EOMI. Absent: scleral icterus, conjunctival injection, periorbital swelling ENT exam: Present: normal exam, mucous membranes moist Neck exam: Present: normal inspection. Absent: tenderness, meningismus, lymphadenopathy Respiratory exam: Present: normal lung sounds bilaterally. Absent: respiratory distress, wheezes, rales, rhonchi, stridor Cardiovascular Exam: Present: regular rate, normal rhythm, normal heart sounds. Absent: systolic murmur, diastolic murmur, rubs, gallop, clicks GI/Abdominal exam: Present: soft, normal bowel sounds. Absent: distended, ten derness, guarding, rebound, rigid Extremities exam: Present: normal inspection, full ROM, normal capillary refill. Absent: tenderness, pedal edema, joint swelling, calf tenderness Back exam: Present: normal inspection Neurological exam: Present: alert, oriented X3, CN II-XII intact Psychiatric exam: Present: normal affect, normal mood Skin exam: Present: warm, dry, intact, normal color. Absent: rash Course Vital Signs 03/13/22 23:36 Temperature 98.0 F Pulse Rate 134 H Respiratory 20 Rate Blood Pressure 147/73 O2 Sat by Pulse 98 Oximetry - Reevaluation(s) Reevaluation #1: 03/14/22 02:54 Medical records reviewed Reevaluation #2: 03/14/22 02:54 Headache is resolved Reevaluation #3: 03/14/22 02:54 Patient informed of results and questions are answered Medical Decision Making - Medical Decision Making 52 female with acute on chronic migraine headache. CT brain is negative patient can be discharged home - Radiology Data Radiology results: report reviewed (CT brain is negative for acute disease), image reviewed Disposition Clinical Impression: Headache Disposition: HOME SELF-CARE Condition: Good Instructions (If sedation given, give patient instructions): Acute Headache (ED) Is patient prescribed a controlled substance at d/c from ED?: No Referrals: José Reece MD [Primary Care Provider] - 1-2 days Time of Disposition: 03:00
--- NOTE | 2022-03-14 03:11 | CT ---
EXAMINATION TYPE: CT brain wo con DATE OF EXAM: 03/14/2022 COMPARISON: 10/24/2021 HISTORY: Migrane, Fever. CT DLP: 1099.4 mGycm Automated exposure control for dose reduction was used. Ventricles have normal size. There is no mass effect or midline shift. No sign of intracranial hemorr david. The calvarium is intact. There is normal aeration of the mastoid sinuses. IMPRESSION: Negative unenhanced head CT scan. No change.
[2022-03-14 03:12] VITALS: BP 132/92; PULSE 122; RESP 18
== END 2022-03-14 03:12 | disposition home or self-care (01) ==
LOC: EC 22:07
DX: G43.909 Migraine, unspecified, not intractable, without status migrainosus (principal); I10 Essential (primary) hypertension; G40.909 Epilepsy, unspecified, not intractable, without status epilepticus; E78.5 Hyperlipidemia, unspecified; F41.9 Anxiety disorder, unspecified; F31.9 Bipolar disorder, unspecified; F17.200 Nicotine dependence, unspecified, uncomplicated; Z88.0 Allergy status to penicillin; Z91.040 Latex allergy status; Z88.6 Allergy status to analgesic agent; Z88.2 Allergy status to sulfonamides; Z91.018 Allergy to other foods; Z88.8 Allergy status to other drugs, medicaments and biological substances; Z79.899 Other long term (current) drug therapy
CPT/HCPCS: 70450; 99284; 96372 ×2; J1170

== ENCOUNTER 2022-03-19 20:22 | Emergency (ER) | payer OTHER ==
[2022-03-19 20:26] VITALS: BP 149/91; PULSE 117; RESP 20; TEMP 97.8
[2022-03-19] MEDS ORDERED: HYDROmorphone 0.5 MG/0.5 ML SYRINGE IM STA (21:25)
[2022-03-19] MEDS ORDERED: ONDANSETRON ODT 8 MG TAB.RAPDIS PO STA (21:26)
[2022-03-19] MEDS ORDERED: MELATONIN 3 MG TABLET PO STA (21:28)
--- NOTE | 2022-03-19 21:28 | ED ---
General Adult HPI - General Chief complaint: Headache Stated complaint: Migrane,Nausea Time Seen by Provider: 03/19/22 21:14 Source: patient Mode of arrival: ambulatory Limitations: no limitations - History of Present Illness Initial comments: Dictation was produced using [employer] dictation software. please excuse any grammatical, word or spelling errors. Chief Complaint: 52-year-old female presents emergency department again for headache History of Present Illness: Is 52-year-old female she is well-known to emergency department for headaches. This is patient's fourth visit in the last 10 days. Patient comes here frequently with complaints of acute on chronic headache. She does report establish care with neurologist and headache specialist. She states that she has an appointment and is having medications with round. Patient states that this feels like her usual headaches. Patient states difficult for her to sleep. She has no other complaints at this time. The ROS documented in this emergency department record has been reviewed and confirmed by me. Those systems with pertinent positive or negative responses have been documented in the HPI. All other systems are other negative and/or noncontributory. PHYSICAL EXAM: General Impression: Alert and oriented x3, not in acute distress HEENT: Normocephalic atraumatic, extra-ocular movements intact, pupils equal and reactive to light bilaterally, mucous membranes moist. Cardiovascular: Heart regular rate and rhythm Chest: Able to complete full sentences, no retractions, no tachypnea Musculoskeletal: Pulses present and equal in all extremities, no peripheral edema Motor: no focal deficits noted Neurological: CN II-XII grossly intact, no focal motor or sensory deficits noted Skin: Intact with no visualized rashes Psych: Normal affect and mood ED course: 52 y old female presents emergency department for acute on chronic headache. All signs upon arrival are within acceptable limits. I had evaluated patient personally on multiple occasions. She appears to be at baseline. Patient given IM injection of analgesics and Zofran ODT. She is discharged and advised follow-up with her neurologist. Nursing notes and chart review was performed - Related Data Home Medications Medication Instructions Recorded Confirmed amLODIPine [Norvasc] 5 mg PO HS 04/28/20 09/14/21 Omeprazole [PriLOSEC] 20 mg PO BID 12/15/20 09/14/21 Thiamine [Vitamin B-1] 100 mg PO HS 01/04/21 09/14/21 Atorvastatin [Lipitor] 40 mg PO HS 07/20/21 09/14/21 DULoxetine HCL [Cymbalta] 60 mg PO HS 07/20/21 09/14/21 buprenorphine HCL [Subutex] 1 mg SUBLINGUAL TID 07/20/21 09/14/21 Previous Rx's Medication Instructions Recorded HYDROcodone/APAP 7.5-325MG [[place] 1 tab PO TID PRN #12 tab 11/17/20 7.5-325] Lacosamide [Vimpat] 100 mg PO BID 7 Days #14 tab 01/16/21 Ondansetron Odt [Zofran Odt] 4 mg PO Q8HR PRN #10 tab 10/24/21 Potassium Chloride ER [K-Dur 20] 20 meq PO DAILY 3 Days #3 tab 01/24/22 Allergies Allergy/AdvReac Type Severity Reaction Status Date / Time dihydroergotamine Allergy Unknown Unknown Verified 03/19/22 20:25 [From Migranal] buprenorphine Allergy Rash/Hives Verified 03/19/22 20:25 gabapentin [From Neurontin] Allergy Itching/Swe Verified 03/19/22 20:25 lling latex Allergy Anaphylaxis Verified 03/19/22 20:25 naproxen [From Naprosyn] Allergy Anaphylaxis Verified 03/19/22 20:25 Penicillins Allergy Anaphylaxis Verified 03/19/22 20:25 prednisone Allergy Swelling Verified 03/19/22 20:25 quetiapine fumarate Allergy Itching, Verified 03/19/22 20:25 [From Seroquel] leg cramps rofecoxib [From Vioxx] Allergy Itching, Verified 03/19/22 20:25 leg cramps terfenadine [From Seldane] Allergy Rash/Hives Verified 03/19/22 20:25 tramadol Allergy Nausea & Verified 03/19/22 20:25 Vomiting/LEG CRAMPS/HEART FLUTTERS calcium carbonate [From DHEA] AdvReac Chest Pain Verified 03/19/22 20:25 calcium phosphate,dibasic AdvReac Chest Pain Verified 03/19/22 20:25 [From DHEA] clindamycin AdvReac muscle Verified 03/19/22 20:25 cramps clonidine AdvReac fast Verified 03/19/22 20:25 heartbeat, migraine dextromethorphan HBr AdvReac face/neck Verified 03/19/22 20:25 [From NyQuil] flushing diazepam [From Valium] AdvReac Nausea & Verified 03/19/22 20:25 Vomiting divalproex sodium AdvReac Nausea & Verified 03/19/22 20:25 [From Depakote] Vomiting doxylamine [From NyQuil] AdvReac face "beet Verified 03/19/22 20:25 red", elevated temp. ibuprofen [From Motrin] AdvReac abdominal Verified 03/19/22 20:25 & muscle cramps indomethacin [From Indocin] AdvReac Abdominal Verified 03/19/22 20:25 Pain,N/V ketorolac tromethamine AdvReac "built up Verified 03/19/22 20:25 [From Toradol] in system", had to be given something to reverse lorazepam [From Ativan] AdvReac Nausea & Verified 03/19/22 20:25 Vomiting memantine [From Namenda] AdvReac Itching Verified 03/19/22 20:25 metoclopramide HCl AdvReac muscle Verified 03/19/22 20:25 [From Reglan] cramps nortriptyline [From Pamelor] AdvReac Chest Pain Verified 03/19/22 20:25 prasterone (DHEA) [From DHEA] AdvReac Chest Pain Verified 03/19/22 20:25 prochlorperazine AdvReac leg Verified 03/19/22 20:25 [From Compazine] cramping propranolol AdvReac Chest Pain Verified 03/19/22 20:25 pseudoephedrine HCl AdvReac face "beet Verified 03/19/22 20:25 [From NyQuil] red", elevated temp. quetiapine [From Seroquel] AdvReac leg Verified 03/19/22 20:25 cramping sumatriptan [From Imitrex] AdvReac migrane Verified 03/19/22 20:25 sumatriptan succinate AdvReac migrane Verified 03/19/22 20:25 [From Imitrex] topiramate [From Topamax] AdvReac "built up Verified 03/19/22 20:25 in system", had to be given something to reverse trazodone AdvReac "built up Verified 03/19/22 20:25 in system", had to be given something to reverse zolpidem tartrate AdvReac "Became Verified 03/19/22 20:25 [From Ambien] violent with no memory" zonisamide [From Zonegran] AdvReac inability Verified 03/19/22 20:25 to eat prosyn Allergy Itching Uncoded 03/19/22 20:25 artificial sweetener AdvReac SEVERE Uncoded 03/19/22 20:25 MIGRAINE HEADACHE Review of Systems ROS Statement: Those systems with pertinent positive or pertinent negative responses have been documented in the HPI. ROS Other: All systems not noted in ROS Statement are negative. Past Medical History Past Medical History: Hyperlipidemia, Hypertension, Seizure Disorder Additional Past Medical History / Comment(s): Migraines, viral meningitis x3 as a child, 1995, 2000, chronic back pain, nerve blocks 08/2016 and 12/2016. Last seizure 10/10/2020, "ABSENT SEIZURES. HX TACHYCARDIA, GBS/CIPD, PTSD. History of Any Multi-Drug Resistant Organisms: None Reported Past Surgical History: Appendectomy, Section, Cholecystectomy, Hernia Repair, Hysterectomy, Orthopedic Surgery, Tonsillectomy, Tubal Ligation Additional Past Surgical History / Comment(s): Hiatal Hernia, umbilical hernia repair, left rotator cuff repair, bilateral knee scopes, pain clinic procedures- occipital nerve block. abd exploratory sx(endometreosis), 3 abd scopes 1981, 1989, 1991), lumbar puncture. EGD. nerve biopsy, salvalry gland biospy Past Anesthesia/Blood Transfusion Reactions: No Reported Reaction Additional Past Anesthesia/Blood Transfusion Reaction / Comment(s): Claustrophobic Past Psychological History: Anxiety, Bipolar, Panic Disorder, PTSD Smoking Status: Current every day smoker Past Alcohol Use History: None Reported Past Drug Use History: None Reported - Past Family History Mother Family Medical History: Cancer, Dementia, Diabetes Mellitus, GERD/Reflux, Hyperlipidemia, Hypertension, Thyroid Disorder Additional Family Medical History / Comment(s): Quad CABG, cardiac stents, toes ampuated and left leg amputated Father History Unknown: Yes Family Medical History: No Reported History General Exam Limitations: no limitations Course Vital Signs 03/19/22 20:24 Temperature 97.8 F Pulse Rate 117 H Respiratory 20 Rate Blood Pressure 149/91 O2 Sat by Pulse 100 Oximetry Disposition Clinical Impression: Headache Disposition: HOME SELF-CARE Condition: Good Instructions (If sedation given, give patient instructions): Acute Headache (ED) Is patient prescribed a controlled substance at d/c from ED?: No Referrals: José Reece MD [Primary Care Provider] - 1-2 days Time of Disposition: 21:28
== END 2022-03-19 21:54 | disposition home or self-care (01) ==
LOC: EC 20:22
DX: R51.9 Headache, unspecified (principal); I10 Essential (primary) hypertension; E78.5 Hyperlipidemia, unspecified; F41.9 Anxiety disorder, unspecified; F31.9 Bipolar disorder, unspecified; F17.200 Nicotine dependence, unspecified, uncomplicated; Z88.0 Allergy status to penicillin; Z88.1 Allergy status to other antibiotic agents; Z88.2 Allergy status to sulfonamides; Z88.5 Allergy status to narcotic agent; Z88.6 Allergy status to analgesic agent; Z88.8 Allergy status to other drugs, medicaments and biological substances; Z91.040 Latex allergy status; Z86.69 Personal history of other diseases of the nervous system and sense organs; Z79.899 Other long term (current) drug therapy
CPT/HCPCS: 99283; 96372; J1170

== ENCOUNTER 2022-04-14 18:35 | Emergency (ER) | payer OTHER ==
[2022-04-14] MEDS ORDERED: ONDANSETRON 4 MG/2 ML VIAL IVP STA (20:32)
[2022-04-14] MEDS ORDERED: SODIUM CHLORIDE 0.9% 1,000 ML IV STA (20:32)
[2022-04-14] MEDS ORDERED: HYDROmorphone 0.5 MG/0.5 ML SYRINGE IVP STA ×2 (20:59→23:17)
[2022-04-14 21:56] LABS: Basophils # (A) 0.1 k/uL (0-0.2); Basophils % (A) 1 %; Eosinophils # (A) 0.1 k/uL (0-0.7); Eosinophils % (A) 1 %; HCT 39.2 % (34.0-46.0); HGB 13.3 gm/dL (11.4-16.0); Lymphocytes # (A) 1.9 k/uL (1.0-4.8); Lymphocytes % (A) 18 %; MCH 31.7 pg (25.0-35.0); MCHC 33.8 g/dL (31.0-37.0); MCV 93.9 fL (80.0-100.0); Mean Platelet Volume 8.8; Monocytes # (A) 0.4 k/uL (0-1.0); Monocytes % (A) 4 %; Neutrophils # (A) 7.9 k/uL (1.3-7.7); Neutrophils % (A) 75 %; Platelet Count 297 k/uL (150-450); RBC 4.18 m/uL (3.80-5.40); RDW 14.5 % (11.5-15.5); WBC 10.5 k/uL (3.8-10.6)
[2022-04-14 21:58] LABS: Appearance,Urine Clear (Clear); Bilirubin,Urine Negative (Negative); Blood,Urine Negative (Negative); Color,Urine Light Yellow; Glucose,Urine (UA) Negative (Negative); Ketones,Urine Negative (Negative); Leukocyte Esterase,Urine Negative (Negative); Nitrite,Urine Negative (Negative); PH, Urine 6.5 (5.0-8.0); Protein,Urine Negative (Negative); Specific Gravity,Urine 1.008 (1.001-1.035); Urobilinogen,Urine <2.0 mg/dL (<2.0)
--- NOTE | 2022-04-14 22:13 | CT ---
EXAMINATION TYPE: CT abdomen pelvis wo con DATE OF EXAM: 04/14/2022 COMPARISON: 10/15/2020 HISTORY: RT sided flank pain CT DLP: 617.6 mGycm Automated exposure control for dose reduction was used. Images obtained from the diaphragm to the floor of the pelvis with no contrast. The lung bases are clear. No pleural effusion. Heart size is normal. No pericardial effusion. Liver s pleen stomach pancreas appear intact. There are clips from cholecystectomy. The bile ducts are not di lated. There is no adrenal mass. Kidneys show normal size and contour. No hydronephrosis. Bladder distends s moothly. No inguinal hernia. No evidence of a pelvic mass. There is no mesenteric edema. No ascites or free air. No sign of a bowel obstruction. Terminal ileum appears normal. Appendix not seen. No significant appendix. The lumbar vertebrae have normal alignment. No compression fracture. Posterior elements are intact. T here is L2-3 disc space narrowing and spur formation. The bony pelvis is intact with the hip joints a re intact. Sacroiliac joints are intact. IMPRESSION: No acute abnormality of the abdomen and pelvis. Appendix not seen. No adverse change compared to the old exam.
[2022-04-14 22:18] LABS: ALT 14 U/L (4-34); AST 20 U/L (14-36); African American GFR (CKD) >90 (>60 ml/min/1.73 sqM); Albumin 3.9 g/dL (3.5-5.0); Alkaline Phosphatase 144 U/L (38-126); Anion Gap 8 mmol/L; Blood Urea Nitrogen 9 mg/dL (7-17); Calcium 8.6 mg/dL (8.4-10.2); Carbon Dioxide 24 mmol/L (22-30); Chloride 105 mmol/L (98-107); Glucose 87 mg/dL (74-99); Lipase 55 U/L (23-300); Non-African American GFR(CKD) 81 (>60 ml/min/1.73 sqM); Potassium 4.1 mmol/L (3.5-5.1); Sodium 137 mmol/L (137-145); Total Bilirubin 0.5 mg/dL (0.2-1.3); Total Protein 6.7 g/dL (6.3-8.2)
[2022-04-14 22:48] VITALS: BP 149/98; PULSE 90; RESP 17
--- NOTE | 2022-04-14 23:20 | ED ---
Abdominal Pain HPI - General Chief Complaint: Abdominal Pain Stated Complaint: Abd Pain,Vomiting Time Seen by Provider: 04/14/22 20:15 Source: patient Mode of arrival: ambulatory Limitations: no limitations - History of Present Illness Initial Comments: 52-year-old female well-known to the emergency department presents with reported right-sided flank pain. Admits to dysuria with radiating pain that goes from her right flank into her right anterior lower quadrant. Symptoms have been going on for the past 4 days. Denies hematuria or increased frequency of voiding. Admits to nausea with vomiting due to the severity of the pain. Denies any chest pain. No ripping or tearing sensation to her back. No history of similar in the past. Denies history of kidney stones. She denies any changes in her bowel habits to include diarrhea, constipation, black or bloody stools. Denies any vaginal bleeding or discharge. She is status post hysterectomy, cholecystectomy and appendectomy. No other alleviating, precipitating or modifying factors - Related Data Home Medications Medication Instructions Recorded Confirmed amLODIPine [Norvasc] 5 mg PO HS 04/28/20 09/14/21 Omeprazole [PriLOSEC] 20 mg PO BID 12/15/20 09/14/21 Thiamine [Vitamin B-1] 100 mg PO HS 01/04/21 09/14/21 Atorvastatin [Lipitor] 40 mg PO HS 07/20/21 09/14/21 DULoxetine HCL [Cymbalta] 60 mg PO HS 07/20/21 09/14/21 buprenorphine HCL [Subutex] 1 mg SUBLINGUAL TID 07/20/21 09/14/21 Previous Rx's Medication Instructions Recorded HYDROcodone/APAP 7.5-325MG [[place] 1 tab PO TID PRN #12 tab 11/17/20 7.5-325] Lacosamide [Vimpat] 100 mg PO BID 7 Days #14 tab 01/16/21 Ondansetron Odt [Zofran Odt] 4 mg PO Q8HR PRN #10 tab 10/24/21 Potassium Chloride ER [K-Dur 20] 20 meq PO DAILY 3 Days #3 tab 01/24/22 Allergies Allergy/AdvReac Type Severity Reaction Status Date / Time dihydroergotamine Allergy Unknown Unknown Verified 04/24/22 16:09 [From Migranal] buprenorphine Allergy Rash/Hives Verified 04/24/22 16:09 gabapentin [From Neurontin] Allergy Itching/Swe Verified 04/24/22 16:09 lling latex Allergy Anaphylaxis Verified 04/24/22 16:09 naproxen [From Naprosyn] Allergy Anaphylaxis Verified 04/24/22 16:09 Penicillins Allergy Anaphylaxis Verified 04/24/22 16:09 prednisone Allergy Swelling Verified 04/24/22 16:09 quetiapine fumarate Allergy Itching, Verified 04/24/22 16:09 [From Seroquel] leg cramps rofecoxib [From Vioxx] Allergy Itching, Verified 04/24/22 16:09 leg cramps terfenadine [From Seldane] Allergy Rash/Hives Verified 04/24/22 16:09 tramadol Allergy Nausea & Verified 04/24/22 16:09 Vomiting/LEG CRAMPS/HEART FLUTTERS calcium carbonate [From DHEA] AdvReac Chest Pain Verified 04/24/22 16:09 calcium phosphate,dibasic AdvReac Chest Pain Verified 04/24/22 16:09 [From DHEA] clindamycin AdvReac muscle Verified 04/24/22 16:09 cramps clonidine AdvReac fast Verified 04/24/22 16:09 heartbeat, migraine dextromethorphan HBr AdvReac face/neck Verified 04/24/22 16:09 [From NyQuil] flushing diazepam [From Valium] AdvReac Nausea & Verified 04/24/22 16:09 Vomiting divalproex sodium AdvReac Nausea & Verified 04/24/22 16:09 [From Depakote] Vomiting doxylamine [From NyQuil] AdvReac face "beet Verified 04/24/22 16:09 red", elevated temp. ibuprofen [From Motrin] AdvReac abdominal Verified 04/24/22 16:09 & muscle cramps indomethacin [From Indocin] AdvReac Abdominal Verified 04/24/22 16:09 Pain,N/V ketorolac tromethamine AdvReac "built up Verified 04/24/22 16:09 [From Toradol] in system", had to be given something to reverse lorazepam [From Ativan] AdvReac Nausea & Verified 04/24/22 16:09 Vomiting memantine [From Namenda] AdvReac Itching Verified 04/24/22 16:09 metoclopramide HCl AdvReac muscle Verified 04/24/22 16:09 [From Reglan] cramps nortriptyline [From Pamelor] AdvReac Chest Pain Verified 04/24/22 16:09 prasterone (DHEA) [From DHEA] AdvReac Chest Pain Verified 04/24/22 16:09 prochlorperazine AdvReac leg Verified 04/24/22 16:09 [From Compazine] cramping propranolol AdvReac Chest Pain Verified 04/24/22 16:09 pseudoephedrine HCl AdvReac face "beet Verified 04/24/22 16:09 [From NyQuil] red", elevated temp. quetiapine [From Seroquel] AdvReac leg Verified 04/24/22 16:09 cramping sumatriptan [From Imitrex] AdvReac migrane Verified 04/24/22 16:09 sumatriptan succinate AdvReac migrane Verified 04/24/22 16:09 [From Imitrex] topiramate [From Topamax] AdvReac "built up Verified 04/24/22 16:09 in system", had to be given something to reverse trazodone AdvReac "built up Verified 04/24/22 16:09 in system", had to be given something to reverse zolpidem tartrate AdvReac "Became Verified 04/24/22 16:09 [From Ambien] violent with no memory" zonisamide [From Zonegran] AdvReac inability Verified 04/24/22 16:09 to eat prosyn Allergy Itching Uncoded 04/24/22 16:09 artificial sweetener AdvReac SEVERE Uncoded 04/24/22 16:09 MIGRAINE HEADACHE Review of Systems ROS Statement: Those systems with pertinent positive or pertinent negative responses have been documented in the HPI. ROS Other: All systems not noted in ROS Statement are negative. Past Medical History Past Medical History: Hyperlipidemia, Hypertension, Seizure Disorder Additional Past Medical History / Comment(s): Migraines, viral meningitis x3 as a child, 1995, 2000, chronic back pain, nerve blocks 08/2016 and 12/2016. Last seizure 10/10/2020, "ABSENT SEIZURES. HX TACHYCARDIA, GBS/CIPD, PTSD. History of Any Multi-Drug Resistant Organisms: None Reported Past Surgical History: Appendectomy, Section, Cholecystectomy, Hernia Repair, Hysterectomy, Orthopedic Surgery, Tonsillectomy, Tubal Ligation Additional Past Surgical History / Comment(s): Hiatal Hernia, umbilical hernia repair, left rotator cuff repair, bilateral knee scopes, pain clinic procedures- occipital nerve block. abd exploratory sx(endometreosis), 3 abd scopes 1981, 1989, 1991), lumbar puncture. EGD. nerve biopsy, salvalry gland biospy Past Anesthesia/Blood Transfusion Reactions: No Reported Reaction Additional Past Anesthesia/Blood Transfusion Reaction / Comment(s): Claustrophobic Past Psychological History: Anxiety, Bipolar, Panic Disorder, PTSD Smoking Status: Current every day smoker Past Alcohol Use History: None Reported Past Drug Use History: None Reported - Past Family History Mother Family Medical History: Cancer, Dementia, Diabetes Mellitus, GERD/Reflux, Hyperlipidemia, Hypertension, Thyroid Disorder Additional Family Medical History / Comment(s): Quad CABG, cardiac stents, toes ampuated and left leg amputated Father History Unknown: Yes Family Medical History: No Reported History General Exam Limitations: no limitations General appearance: alert, in no apparent distress Head exam: Present: atraumatic, normocephalic, normal inspection Eye exam: Present: normal appearance, PERRL, EOMI. Absent: scleral icterus, conjunctival injection, periorbital swelling ENT exam: Present: normal exam, mucous membranes moist Neck exam: Present: normal inspection. Absent: tenderness, meningismus, lymphadenopathy Respiratory exam: Present: normal lung sounds bilaterally. Absent: respiratory distress, wheezes, rales, rhonchi, stridor Cardiovascular Exam: Present: regular rate, normal rhythm, normal heart sounds. Absent: systolic murmur, diastolic murmur, rubs, gallop, clicks GI/Abdominal exam: Present: soft, tenderness (epigastric, right flank), normal bowel sounds. Absent: distended, guarding, rebound, rigid Extremities exam: Present: normal inspection, full ROM, normal capillary refill. Absent: tenderness, pedal edema, joint swelling, calf tenderness Back exam: Present: normal inspection Neurological exam: Present: alert, oriented X3, CN II-XII intact Psychiatric exam: Present: normal affect, normal mood Skin exam: Present: warm, dry, intact, normal color. Absent: rash Course Vital Signs 04/14/22 04/14/22 04/14/22 18:55 21:50 22:05 Temperature 97 F L Pulse Rate 100 96 91 Respiratory 20 18 18 Rate Blood Pressure 135/93 144/106 140/101 O2 Sat by Pulse 99 99 95 Oximetry 04/14/22 04/14/22 22:48 23:52 Temperature 98.1 F Pulse Rate 90 Respiratory 17 Rate Blood Pressure 149/98 O2 Sat by Pulse 97 Oximetry Medical Decision Making - Medical Decision Making Was pt. sent in by a medical professional or institution? no Did you speak to anyone other than the patient for history? no Did you review nursing and triage notes? yes and I agree Were old charts reviewed? previous admissions, previous er visits, Differential Diagnosis? MDM Differential Abdominal Pain Women: Appendicitis, Cholecystitis, diverticulosis, ischemic bowel, pancreatitis, hepatitis, UTI, gastroenteritis, AAA, incarcerated hernia, bowel obstruction, constipation, inflammatory bowel, hepatitis, peptic ulcer disease, splenic infarction, perforated viscus, vulvitis, ovarian torsion, PID, kidney stone, placenta abruption... This is not meant to be an all-inclusive list EKG interpreted by me (3pts min.)? no X-rays interpreted by me (1pt min.)? no CT interpreted by me (1pt min.)? yes U/S interpreted by me (1pt. min.)? no What testing was considered but not performed? (CT, X-rays, U/S, labs)? Why? none What meds were considered but not given? Why? none Did you discuss the management of the patient with other professionals? no Did you reconcile home meds? no Was smoking cessation discussed for >3mins.? no Was critical care preformed (if so, how long)? no Were there social determinants of health that impacted care today? How? (Homelessness, low income, unemployed, alcoholism, drug addiction, transportation, low edu. Level, literacy, decrease access to med. care, senior care, rehab)? not Was there de-escalation of care discussed even if they declined? (Discuss DNR or withdrawal of care, Hospice)? no What co-morbidities impacted this encounter? (DM, HTN, Smoking, COPD, CAD, Cancer, CVA, Hep., AIDS, mental health diagnosis, sleep apnea, morbid obesity)? chronic pain, htn, hld, migraines, seizure disorder Was patient admitted / discharged? Upon arrival patient was placed into room 10. A thorough history and physical exam is performed. IV access is established and laboratory studies were conducted. The pain control of Zofran for her nausea. Laboratories reviewed the results are discussed the patient. CT of the abdomen and pelvis is perf ormed without identifiable cause for the patient's symptoms. She does report improvement in her pain. Patient will be discharged home at this time. Needs follow-up with primary care doctor for further evaluation of her symptoms and return for any new or worsening symptoms. Patient was agreeable to treatment plan and she is discharged home in stable condition Undiagnosed new problem with uncertain prognosis? yes Drug Therapy requiring intensive monitoring for toxicity (Heparin, Nitro, Insulin, Cardizem)? no Were any procedures done? no Diagnosis/symptom? acute abd pain Acute, or Chronic, or Acute on Chronic? acute Uncomplicated (without systemic symptoms) or Complicated (systemic symptoms)? complicated Side effects of treatment? sedation Exacerbation, Progression, or Severe Exacerbation] no Poses a threat to life or bodily function? no - Lab Data Result diagrams: 04/14/22 21:49 04/14/22 21:49 Lab Results 04/14/22 04/14/22 04/14/22 Range/Units 21:49 21:49 21:49 WBC 10.5 (3.8-10.6) k/uL RBC 4.18 (3.80-5.40) m/uL Hgb 13.3 (11.4-16.0) gm/dL Hct 39.2 (34.0-46.0) % MCV 93.9 (80.0-100.0) fL MCH 31.7 (25.0-35.0) pg MCHC 33.8 (31.0-37.0) g/dL RDW 14.5 (11.5-15.5) % Plt Count 297 (150-450) k/uL MPV 8.8 Neutrophils % 75 % Lymphocytes % 18 % Monocytes % 4 % Eosinophils % 1 % Basophils % 1 % Neutrophils # 7.9 H (1.3-7.7) k/uL Lymphocytes # 1.9 (1.0-4.8) k/uL Monocytes # 0.4 (0-1.0) k/uL Eosinophils # 0.1 (0-0.7) k/uL Basophils # 0.1 (0-0.2) k/uL Sodium 137 (137-145) mmol/L Potassium 4.1 (3.5-5.1) mmol/L Chloride 105 (98-107) mmol/L Carbon Dioxide 24 (22-30) mmol/L Anion Gap 8 mmol/L BUN 9 (7-17) mg/dL Creatinine 0.84 (0.52-1.04) mg/dL Est GFR (CKD-EPI)AfAm >90 (>60 ml/min/1.73 sqM) Est GFR (CKD-EPI)NonAf 81 (>60 ml/min/1.73 sqM) Glucose 87 (74-99) mg/dL Plasma Lactic Acid Ed (0.7-2.0) mmol/L Calcium 8.6 (8.4-10.2) mg/dL Total Bilirubin 0.5 (0.2-1.3) mg/dL AST 20 (14-36) U/L ALT 14 (4-34) U/L Alkaline Phosphatase 144 H (38-126) U/L Total Protein 6.7 (6.3-8.2) g/dL Albumin 3.9 (3.5-5.0) g/dL Lipase 55 (23-300) U/L Urine Color Light Yellow Urine Appearance Clear (Clear) Urine pH 6.5 (5.0-8.0) Ur Specific Chloe 1.008 (1.001-1.035) Urine Protein Negative (Negative) Urine Glucose (UA) Negative (Negative) Urine Ketones Negative (Negative) Urine Blood Negative (Negative) Urine Nitrite Negative (Negative) Urine Bilirubin Negative (Negative) Urine Urobilinogen <2.0 (<2.0) mg/dL Ur Leukocyte Esterase Negative (Negative) 04/14/22 Range/Units 22:20 WBC (3.8-10.6) k/uL RBC (3.80-5.40) m/uL Hgb (11.4-16.0) gm/dL Hct (34.0-46.0) % MCV (80.0-100.0) fL MCH (25.0-35.0) pg MCHC (31.0-37.0) g/dL RDW (11.5-15.5) % Plt Count (150-450) k/uL MPV Neutrophils % % Lymphocytes % % Monocytes % % Eosinophils % % Basophils % % Neutrophils # (1.3-7.7) k/uL Lymphocytes # (1.0-4.8) k/uL Monocytes # (0-1.0) k/uL Eosinophils # (0-0.7) k/uL Basophils # (0-0.2) k/uL Sodium (137-145) mmol/L Potassium (3.5-5.1) mmol/L Chloride (98-107) mmol/L Carbon Dioxide (22-30) mmol/L Anion Gap mmol/L BUN (7-17) mg/dL Creatinine (0.52-1.04) mg/dL Est GFR (CKD-EPI)AfAm (>60 ml/min/1.73 sqM) Est GFR (CKD-EPI)NonAf (>60 ml/min/1.73 sqM) Glucose (74-99) mg/dL Plasma Lactic Acid Ed 0.8 (0.7-2.0) mmol/L Calcium (8.4-10.2) mg/dL Total Bilirubin (0.2-1.3) mg/dL AST (14-36) U/L ALT (4-34) U/L Alkaline Phosphatase (38-126) U/L Total Protein (6.3-8.2) g/dL Albumin (3.5-5.0) g/dL Lipase (23-300) U/L Urine Color Urine Appearance (Clear) Urine pH (5.0-8.0) Ur Specific Chloe (1.001-1.035) Urine Protein (Negative) Urine Glucose (UA) (Negative) Urine Ketones (Negative) Urine Blood (Negative) Urine Nitrite (Negative) Urine Bilirubin (Negative) Urine Urobilinogen (<2.0) mg/dL Ur Leukocyte Esterase (Negative) Disposition Clinical Impression: Abdominal pain Disposition: HOME SELF-CARE Condition: Stable Instructions (If sedation given, give patient instructions): Abdominal Pain (ED) Additional Instructions: Please follow up with your primary care doctor in 2-4 days. Return for any new or worsening symptoms Is patient prescribed a controlled substance at d/c from ED?: No Referrals: José Reece MD [Primary Care Provider] - 1-2 days Time of Disposition: 23:20
[2022-04-14 23:35] VITALS: TEMP 98.1
== END 2022-04-14 23:52 | disposition home or self-care (01) ==
LOC: EC 18:35
DX: R10.13 Epigastric pain (principal); I10 Essential (primary) hypertension; E78.5 Hyperlipidemia, unspecified; Z88.0 Allergy status to penicillin; F41.9 Anxiety disorder, unspecified; F31.9 Bipolar disorder, unspecified; Z91.040 Latex allergy status; Z88.5 Allergy status to narcotic agent; Z88.6 Allergy status to analgesic agent; Z88.8 Allergy status to other drugs, medicaments and biological substances; F17.200 Nicotine dependence, unspecified, uncomplicated; Z79.899 Other long term (current) drug therapy
CPT/HCPCS: 36415; 80053; 83605; 83690; 85025; 81003; 74176; 99285; 96374; 96375 ×2; 96376; 96361 ×2; J2405; J1642; J1170

== ENCOUNTER 2022-04-24 16:01 | Emergency (ER) | payer OTHER ==
[2022-04-24] MEDS ORDERED: SODIUM CHLORIDE 0.9% 1,000 ML IV ONE (16:27)
[2022-04-24] MEDS ORDERED: ONDANSETRON 4 MG/2 ML VIAL IVP STA (16:28)
[2022-04-24] MEDS ORDERED: HYDROmorphone 1 MG/ML 1 ML SYRINGE IVP STA (16:28)
[2022-04-24] MEDS ORDERED: diphenhydrAMINE 50 MG/ML 1 ML VIAL IVP STA (16:28)
--- NOTE | 2022-04-24 17:22 | ED ---
General Adult HPI - General Chief complaint: Headache Stated complaint: Migraine,vomiting Time Seen by Provider: 04/24/22 16:23 Source: patient Mode of arrival: ambulatory Limitations: no limitations - History of Present Illness Initial comments: This is a 52-year-old female who is well-known to the emergency department, with a past medical history including migraines, seizure disorder and Guillain-Cárdenas presents emergency department for continued migraine headache. The patient stated that she took her medications as prescribed but stated that they were not helping her today. The patient stated that she felt that she was doing well and had not been in the emergency department for over a month for headaches. The patient stated that it felt like a typical migraine focused on the right side of her head with some nausea and vomiting. The patient also had photophobia. The patient denied any other acute pain or complaints at this time and denied any lightheadedness or dizziness. - Related Data Home Medications Medication Instructions Recorded Confirmed amLODIPine [Norvasc] 5 mg PO HS 04/28/20 09/14/21 Omeprazole [PriLOSEC] 20 mg PO BID 12/15/20 09/14/21 Thiamine [Vitamin B-1] 100 mg PO HS 01/04/21 09/14/21 Atorvastatin [Lipitor] 40 mg PO HS 07/20/21 09/14/21 DULoxetine HCL [Cymbalta] 60 mg PO HS 07/20/21 09/14/21 buprenorphine HCL [Subutex] 1 mg SUBLINGUAL TID 07/20/21 09/14/21 Previous Rx's Medication Instructions Recorded HYDROcodone/APAP 7.5-325MG [[place] 1 tab PO TID PRN #12 tab 11/17/20 7.5-325] Lacosamide [Vimpat] 100 mg PO BID 7 Days #14 tab 01/16/21 Ondansetron Odt [Zofran Odt] 4 mg PO Q8HR PRN #10 tab 10/24/21 Potassium Chloride ER [K-Dur 20] 20 meq PO DAILY 3 Days #3 tab 01/24/22 Allergies Allergy/AdvReac Type Severity Reaction Status Date / Time dihydroergotamine Allergy Unknown Unknown Verified 04/24/22 16:09 [From Migranal] buprenorphine Allergy Rash/Hives Verified 04/24/22 16:09 gabapentin [From Neurontin] Allergy Itching/Swe Verified 04/24/22 16:09 lling latex Allergy Anaphylaxis Verified 04/24/22 16:09 naproxen [From Naprosyn] Allergy Anaphylaxis Verified 04/24/22 16:09 Penicillins Allergy Anaphylaxis Verified 04/24/22 16:09 prednisone Allergy Swelling Verified 04/24/22 16:09 quetiapine fumarate Allergy Itching, Verified 04/24/22 16:09 [From Seroquel] leg cramps rofecoxib [From Vioxx] Allergy Itching, Verified 04/24/22 16:09 leg cramps terfenadine [From Seldane] Allergy Rash/Hives Verified 04/24/22 16:09 tramadol Allergy Nausea & Verified 04/24/22 16:09 Vomiting/LEG CRAMPS/HEART FLUTTERS calcium carbonate [From DHEA] AdvReac Chest Pain Verified 04/24/22 16:09 calcium phosphate,dibasic AdvReac Chest Pain Verified 04/24/22 16:09 [From DHEA] clindamycin AdvReac muscle Verified 04/24/22 16:09 cramps clonidine AdvReac fast Verified 04/24/22 16:09 heartbeat, migraine dextromethorphan HBr AdvReac face/neck Verified 04/24/22 16:09 [From NyQuil] flushing diazepam [From Valium] AdvReac Nausea & Verified 04/24/22 16:09 Vomiting divalproex sodium AdvReac Nausea & Verified 04/24/22 16:09 [From Depakote] Vomiting doxylamine [From NyQuil] AdvReac face "beet Verified 04/24/22 16:09 red", elevated temp. ibuprofen [From Motrin] AdvReac abdominal Verified 04/24/22 16:09 & muscle cramps indomethacin [From Indocin] AdvReac Abdominal Verified 04/24/22 16:09 Pain,N/V ketorolac tromethamine AdvReac "built up Verified 04/24/22 16:09 [From Toradol] in system", had to be given something to reverse lorazepam [From Ativan] AdvReac Nausea & Verified 04/24/22 16:09 Vomiting memantine [From Namenda] AdvReac Itching Verified 04/24/22 16:09 metoclopramide HCl AdvReac muscle Verified 04/24/22 16:09 [From Reglan] cramps nortriptyline [From Pamelor] AdvReac Chest Pain Verified 04/24/22 16:09 prasterone (DHEA) [From DHEA] AdvReac Chest Pain Verified 04/24/22 16:09 prochlorperazine AdvReac leg Verified 04/24/22 16:09 [From Compazine] cramping propranolol AdvReac Chest Pain Verified 04/24/22 16:09 pseudoephedrine HCl AdvReac face "beet Verified 04/24/22 16:09 [From NyQuil] red", elevated temp. quetiapine [From Seroquel] AdvReac leg Verified 04/24/22 16:09 cramping sumatriptan [From Imitrex] AdvReac migrane Verified 04/24/22 16:09 sumatriptan succinate AdvReac migrane Verified 04/24/22 16:09 [From Imitrex] topiramate [From Topamax] AdvReac "built up Verified 04/24/22 16:09 in system", had to be given something to reverse trazodone AdvReac "built up Verified 04/24/22 16:09 in system", had to be given something to reverse zolpidem tartrate AdvReac "Became Verified 04/24/22 16:09 [From Ambien] violent with no memory" zonisamide [From Zonegran] AdvReac inability Verified 04/24/22 16:09 to eat prosyn Allergy Itching Uncoded 04/24/22 16:09 artificial sweetener AdvReac SEVERE Uncoded 04/24/22 16:09 MIGRAINE HEADACHE Review of Systems ROS Statement: Those systems with pertinent positive or pertinent negative responses have been documented in the HPI. ROS Other: All systems not noted in ROS Statement are negative. Past Medical History Past Medical History: Hyperlipidemia, Hypertension, Seizure Disorder Additional Past Medical History / Comment(s): Migraines, viral meningitis x3 as a child, 1995, 2000, chronic back pain, nerve blocks 08/2016 and 12/2016. Last seizure 10/10/2020, "ABSENT SEIZURES. HX TACHYCARDIA, GBS/CIPD, PTSD. History of Any Multi-Drug Resistant Organisms: None Reported Past Surgical History: Appendectomy, Section, Cholecystectomy, Hernia Repair, Hysterectomy, Orthopedic Surgery, Tonsillectomy, Tubal Ligation Additional Past Surgical History / Comment(s): Hiatal Hernia, umbilical hernia repair, left rotator cuff repair, bilateral knee scopes, pain clinic procedures- occipital nerve block. abd exploratory sx(endometreosis), 3 abd scopes 1981, 1989, 1991), lumbar puncture. EGD. nerve biopsy, salvalry gland biospy Past Anesthesia/Blood Transfusion Reactions: No Reported Reaction Additional Past Anesthesia/Blood Transfusion Reaction / Comment(s): Claustrophobic Past Psychological History: Anxiety, Bipolar, Panic Disorder, PTSD Smoking Status: Current every day smoker Past Alcohol Use History: None Reported Past Drug Use History: None Reported - Past Family History Mother Family Medical History: Cancer, Dementia, Diabetes Mellitus, GERD/Reflux, Hyperlipidemia, Hypertension, Thyroid Disorder Additional Family Medical History / Comment(s): Quad CABG, cardiac stents, toes ampuated and left leg amputated Father History Unknown: Yes Family Medical History: No Reported History General Exam Limitations: no limitations General appearance: alert, in no apparent distress Head exam: Present: atraumatic, normocephalic, normal inspection Eye exam: Present: normal appearance, PERRL Pupils: Present: normal accommodation ENT exam: Present: normal exam, normal oropharynx, mucous membranes moist Neck exam: Present: normal inspection, full ROM Respiratory exam: Present: normal lung sounds bilaterally Cardiovascular Exam: Present: regular rate, normal rhythm, normal heart sounds GI/Abdominal exam: Present: soft, normal bowel sounds Extremities exam: Present: normal inspection, full ROM Back exam: Present: normal inspection, full ROM Neurological exam: Present: alert, oriented X3, CN II-XII intact Psychiatric exam: Present: normal affect, normal mood Skin exam: Present: warm, dry Course Vital Signs 04/24/22 04/24/22 04/24/22 16:06 18:30 20:47 Temperature 97.9 F 98.2 F Pulse Rate 104 H 100 92 Respiratory 20 18 16 Rate Blood Pressure 133/91 155/100 150/110 O2 Sat by Pulse 98 95 99 Oximetry Medical Decision Making - Medical Decision Making Was pt. sent in by a medical professional or institution (, PA, GATE SUPERVISOR, urgent care, hospital, or correction...) When possible be specific @ -No Did you speak to anyone other than the patient for history (EMS, parent, family, police, friend...)? What history was obtained from this source @ -No Did you review nursing and triage notes (agree or disagree)? Why? @ -I reviewed and agree with nursing and triage notes Were old charts reviewed (outside hosp., previous admission, EMS record, old EKG, old radiological studies, urgent care reports/EKG's, correction records)? Report findings @ -Yes, I reviewed the old emergency department notes Differential Diagnosis (chest pain, altered mental status, abdominal pain women, abdominal pain men, vaginal bleeding, weakness, fever, dyspnea, syncope, headache, dizziness, GI bleed, back pain, seizure, CVA, palpatations, mental health)? @ -Headache, migraine with aura EKG interpreted by me (3pts min.). @ -None X-rays interpreted by me (1pt min.). @ -None done CT interpreted by me (1pt min.). @ -None done U/S interpreted by me (1pt. min.). @ -None done What testing was considered but not performed or refused? (CT, X-rays, U/S, labs)? Why? @ -She had was considered however the patient stated this is baseline for her migraines therefore no further imaging was obtained this time. What meds were considered but not given or refused? Why? @ -None Did you discuss the management of the patient with other professionals (professionals i.e. , PA, GATE SUPERVISOR, lab, RT, psych nurse, criminal justice social worker, litigation partner, teacher, safety officer, hospice case manager)? Give summary @ -No Was smoking cessation discussed for >3mins.? @ -No Was critical care preformed (if so, how long)? @ -No Were there social determinants of health that impacted care today? How? (Homelessness, low income, unemployed, alcoholism, drug addiction, transportation, low edu. Level, literacy, decrease access to med. care, usp, rehab)? @ -No Was there de-escalation of care discussed even if they declined (Discuss DNR or withdrawal of care, Hospice)? DNR status @ -No What co-morbidities impacted this encounter? (DM, HTN, Smoking, COPD, CAD, Cancer, CVA, ARF, Chemo, Hep., AIDS, mental health diagnosis, sleep apnea, morbid obesity)? @ -Previous migraine headaches and multiple ER visits for this Was patient admitted / discharged? Hospital course, mention meds given and route, prescriptions, significant lab abnormalities, going to OR and other pertinent info. @ -The patient was seen and evaluated emergency department. Physical exam, the patient was resting in bed comfortably in a dark room with sunglasses on. The patient stated that she has specific medications that work for her headaches and she was given a headache cocktail including the medications requested including 1 L no sealing fluid, Benadryl, Zofran and Dilaudid. The patient was monitored observed in the emergency department for several hours and was noted to be in laboratory to and from the bathroom without any acute distress. When I went to evaluate the patient, the patient stated that she had continued and worsening migraine pain and stated this started once she got back from the bathroom. The patient was requesting further narcotic pain medications and I did state that this would not be given. The patient had multiple narcotics at home and she was told that she could take her home dose of medications and would not be getting further pain medications. The patient stated that she wanted to go home and be a dark room and did not want to be here any further once I told her this. The patient was discharged home in stable condition. Undiagnosed new problem with uncertain prognosis? @ -No Drug Therapy requiring intensive monitoring for toxicity (Heparin, Nitro, Insulin, Cardizem)? @ -No Were any procedures done? @ -No Diagnosis/symptom? @ -Migraine headache Acute, or Chronic, or Acute on Chronic? @ -Acute on chronic Uncomplicated (without systemic symptoms) or Complicated (systemic symptoms)? @ -Uncomplicated Side effects of treatment? @ -No Exacerbation, Progression, or Severe Exacerbation? @ -No Poses a threat to life or bodily function? How? (Chest pain, [place], [place], pneumonia, PE, COPD, DKA, ARF, appy, cholecystitis, CVA, Diverticulitis, Homicidal, Suicidal, threat to staff... and all critical care pts) @ -No Disposition Clinical Impression: Migraine Disposition: HOME SELF-CARE Condition: Stable Instructions (If sedation given, give patient instructions): Acute Headache (ED) Is patient prescribed a controlled substance at d/c from ED?: No Referrals: José Reece MD [Primary Care Provider] - 1-2 days Time of Disposition: 20:30
[2022-04-24 20:49] VITALS: BP 150/110; PULSE 92; RESP 16; TEMP 98.2
== END 2022-04-24 20:49 | disposition home or self-care (01) ==
LOC: EC 16:01
DX: G43.509 Persistent migraine aura without cerebral infarction, not intractable, without status migrainosus (principal); I10 Essential (primary) hypertension; E78.5 Hyperlipidemia, unspecified; F31.9 Bipolar disorder, unspecified; F41.9 Anxiety disorder, unspecified; F17.200 Nicotine dependence, unspecified, uncomplicated; Z79.899 Other long term (current) drug therapy; Z88.0 Allergy status to penicillin; Z88.1 Allergy status to other antibiotic agents; Z88.2 Allergy status to sulfonamides; Z88.5 Allergy status to narcotic agent; Z88.6 Allergy status to analgesic agent; Z88.8 Allergy status to other drugs, medicaments and biological substances; Z91.040 Latex allergy status
CPT/HCPCS: 99283; 96374; 96375 ×2; 96361 ×2; J1200; J2405; J1170

== ENCOUNTER 2022-05-06 10:58 | Emergency (ER) | payer OTHER ==
[2022-05-06 11:21] VITALS: BP 126/81; PULSE 114; RESP 20; TEMP 98
[2022-05-06] MEDS ORDERED: HYDROmorphone 1 MG/ML 1 ML SYRINGE IM STA (11:58)
[2022-05-06] MEDS ORDERED: ONDANSETRON 4 MG/2 ML VIAL IM STA (11:58)
--- NOTE | 2022-05-06 12:01 | ED ---
General Adult HPI - General Chief complaint: Headache Stated complaint: Migraine Time Seen by Provider: 05/06/22 11:27 Source: patient, RN notes reviewed Mode of arrival: ambulatory Limitations: no limitations - History of Present Illness Initial comments: Patient is a pleasant 52-year-old female presenting to the emergency department for concern for headache. Patient does have chronic headaches. This headache started around 3 days ago and progressively worsening. Patient does have some associated nausea and has vomited. Patient has photophobia. Patient has chronic leg weakness, unchanged. No new weakness. No fever. - Related Data Home Medications Medication Instructions Recorded Confirmed amLODIPine [Norvasc] 5 mg PO HS 04/28/20 09/14/21 Omeprazole [PriLOSEC] 20 mg PO BID 12/15/20 09/14/21 Thiamine [Vitamin B-1] 100 mg PO HS 01/04/21 09/14/21 Atorvastatin [Lipitor] 40 mg PO HS 07/20/21 09/14/21 DULoxetine HCL [Cymbalta] 60 mg PO HS 07/20/21 09/14/21 buprenorphine HCL [Subutex] 1 mg SUBLINGUAL TID 07/20/21 09/14/21 Previous Rx's Medication Instructions Recorded HYDROcodone/APAP 7.5-325MG [[place] 1 tab PO TID PRN #12 tab 11/17/20 7.5-325] Lacosamide [Vimpat] 100 mg PO BID 7 Days #14 tab 01/16/21 Ondansetron Odt [Zofran Odt] 4 mg PO Q8HR PRN #10 tab 10/24/21 Potassium Chloride ER [K-Dur 20] 20 meq PO DAILY 3 Days #3 tab 01/24/22 Allergies Allergy/AdvReac Type Severity Reaction Status Date / Time dihydroergotamine Allergy Unknown Unknown Verified 05/06/22 11:22 [From Migranal] buprenorphine Allergy Rash/Hives Verified 05/06/22 11:22 gabapentin [From Neurontin] Allergy Itching/Swe Verified 05/06/22 11:22 lling latex Allergy Anaphylaxis Verified 05/06/22 11:22 naproxen [From Naprosyn] Allergy Anaphylaxis Verified 05/06/22 11:22 Penicillins Allergy Anaphylaxis Verified 05/06/22 11:22 prednisone Allergy Swelling Verified 05/06/22 11:22 quetiapine fumarate Allergy Itching, Verified 05/06/22 11:22 [From Seroquel] leg cramps rofecoxib [From Vioxx] Allergy Itching, Verified 05/06/22 11:22 leg cramps terfenadine [From Seldane] Allergy Rash/Hives Verified 05/06/22 11:22 tramadol Allergy Nausea & Verified 05/06/22 11:22 Vomiting/LEG CRAMPS/HEART FLUTTERS calcium carbonate [From DHEA] AdvReac Chest Pain Verified 05/06/22 11:22 calcium phosphate,dibasic AdvReac Chest Pain Verified 05/06/22 11:22 [From DHEA] clindamycin AdvReac muscle Verified 05/06/22 11:22 cramps clonidine AdvReac fast Verified 05/06/22 11:22 heartbeat, migraine dextromethorphan HBr AdvReac face/neck Verified 05/06/22 11:22 [From NyQuil] flushing diazepam [From Valium] AdvReac Nausea & Verified 05/06/22 11:22 Vomiting divalproex sodium AdvReac Nausea & Verified 05/06/22 11:22 [From Depakote] Vomiting doxylamine [From NyQuil] AdvReac face "beet Verified 05/06/22 11:22 red", elevated temp. ibuprofen [From Motrin] AdvReac abdominal Verified 05/06/22 11:22 & muscle cramps indomethacin [From Indocin] AdvReac Abdominal Verified 05/06/22 11:22 Pain,N/V ketorolac tromethamine AdvReac "built up Verified 05/06/22 11:22 [From Toradol] in system", had to be given something to reverse lorazepam [From Ativan] AdvReac Nausea & Verified 05/06/22 11:22 Vomiting memantine [From Namenda] AdvReac Itching Verified 05/06/22 11:22 metoclopramide HCl AdvReac muscle Verified 05/06/22 11:22 [From Reglan] cramps nortriptyline [From Pamelor] AdvReac Chest Pain Verified 05/06/22 11:22 prasterone (DHEA) [From DHEA] AdvReac Chest Pain Verified 05/06/22 11:22 prochlorperazine AdvReac leg Verified 05/06/22 11:22 [From Compazine] cramping propranolol AdvReac Chest Pain Verified 05/06/22 11:22 pseudoephedrine HCl AdvReac face "beet Verified 05/06/22 11:22 [From NyQuil] red", elevated temp. quetiapine [From Seroquel] AdvReac leg Verified 05/06/22 11:22 cramping sumatriptan [From Imitrex] AdvReac migrane Verified 05/06/22 11:22 sumatriptan succinate AdvReac migrane Verified 05/06/22 11:22 [From Imitrex] topiramate [From Topamax] AdvReac "built up Verified 05/06/22 11:22 in system", had to be given something to reverse trazodone AdvReac "built up Verified 05/06/22 11:22 in system", had to be given something to reverse zolpidem tartrate AdvReac "Became Verified 05/06/22 11:22 [From Ambien] violent with no memory" zonisamide [From Zonegran] AdvReac inability Verified 05/06/22 11:22 to eat prosyn Allergy Itching Uncoded 05/06/22 11:22 artificial sweetener AdvReac SEVERE Uncoded 05/06/22 11:22 MIGRAINE HEADACHE Review of Systems ROS Statement: Those systems with pertinent positive or pertinent negative responses have been documented in the HPI. ROS Other: All systems not noted in ROS Statement are negative. Constitutional: Denies: fever Eyes: Denies: eye pain ENT: Denies: ear pain Respiratory: Denies: cough Cardiovascular: Denies: chest pain Endocrine: Denies: fatigue Gastrointestinal: Reports: nausea, vomiting. Denies: abdominal pain Genitourinary: Denies: dysuria Neurological: Reports: headache. Denies: weakness, confusion Past Medical History Past Medical History: Hyperlipidemia, Hypertension, Seizure Disorder Additional Past Medical History / Comment(s): Migraines, viral meningitis x3 as a child, 1995, 2000, chronic back pain, nerve blocks 08/2016 and 12/2016. Last seizure 10/10/2020, "ABSENT SEIZURES. HX TACHYCARDIA, GBS/CIPD, PTSD. History of Any Multi-Drug Resistant Organisms: None Reported Past Surgical History: Appendectomy, Section, Cholecystectomy, Hernia Repair, Hysterectomy, Orthopedic Surgery, Tonsillectomy, Tubal Ligation Additional Past Surgical History / Comment(s): Hiatal Hernia, umbilical hernia repair, left rotator cuff repair, bilateral knee scopes, pain clinic procedures- occipital nerve block. abd exploratory sx(endometreosis), 3 abd scopes 1981, 1989, 1991), lumbar puncture. EGD. nerve biopsy, salvalry gland biospy Past Anesthesia/Blood Transfusion Reactions: No Reported Reaction Additional Past Anesthesia/Blood Transfusion Reaction / Comment(s): Claustrophobic Past Psychological History: Anxiety, Bipolar, Panic Disorder, PTSD Smoking Status: Current every day smoker Past Alcohol Use History: None Reported Past Drug Use History: None Reported - Past Family History Mother Family Medical History: Cancer, Dementia, Diabetes Mellitus, GERD/Reflux, Hyperlipidemia, Hypertension, Thyroid Disorder Additional Family Medical History / Comment(s): Quad CABG, cardiac stents, toes ampuated and left leg amputated Father History Unknown: Yes Family Medical History: No Reported History General Exam Limitations: no limitations General appearance: alert, in no apparent distress Head exam: Present: atraumatic Eye exam: Present: normal appearance, PERRL, EOMI Neck exam: Present: normal inspection Respiratory exam: Present: normal lung sounds bilaterally Cardiovascular Exam: Present: regular rate, normal rhythm GI/Abdominal exam: Present: soft. Absent: tenderness Extremities exam: Present: normal inspection Neurological exam: Present: alert, CN II-XII intact. Absent: motor sensory deficit Psychiatric exam: Present: normal affect, normal mood Skin exam: Present: normal color Course Vital Signs 05/06/22 11:20 Temperature 98 F Pulse Rate 114 H Respiratory 20 Rate Blood Pressure 126/81 O2 Sat by Pulse 99 Oximetry Medical Decision Making - Medical Decision Making Was pt. sent in by a medical professional or institution (, PA, ASPHALT HEATER OPERATOR, urgent care, hospital, or detention...) When possible be specific @ -No Did you speak to anyone other than the patient for history (EMS, parent, family, police, friend...)? What history was obtained from this source @ -No Did you review nursing and triage notes (agree or disagree)? Why? @ -I reviewed and agree with nursing and triage notes Were old charts reviewed (outside hosp., previous admission, EMS record, old E KG, old radiological studies, urgent care reports/EKG's, detention records)? Report findings @ -No old charts were reviewed Differential Diagnosis (chest pain, altered mental status, abdominal pain women, abdominal pain men, vaginal bleeding, weakness, fever, dyspnea, syncope, headache, dizziness, GI bleed, back pain, seizure, CVA, palpatations, mental hea lth)? @ -Differential Headache: Migraine, tension, cluster, carbon monoxide, central venous thrombosis, pension karma temporal arteritis, acute closure glaucoma, intercranial hemorrhage, mastoiditis, sinusitis, head injury, this is not meant to be an all-inclusive list. EKG interpreted by me (3pts min.). @ -As above X-rays interpreted by me (1pt min.). @ -None done CT interpreted by me (1pt min.). @ -None done U/S interpreted by me (1pt. min.). @ -None done What testing was considered but not performed or refused? (CT, X-rays, U/S, labs)? Why? @ -None What meds were considered but not given or refused? Why? @ -None Did you discuss the management of the patient with other professionals (professionals i.e. , PA, ASPHALT HEATER OPERATOR, lab, RT, psych nurse, group social worker, cloud infrastructure architect, teacher, security patrol officer, dependency case manager)? Give summary @ -No Was smoking cessation discussed for >3mins.? @ -No Was critical care preformed (if so, how long)? @ -No Were there social determinants of health that impacted care today? How? (Homelessness, low income, unemployed, alcoholism, drug addiction, transportation, low edu. Level, literacy, decrease access to med. care, intermediate, rehab)? @ -No Was there de-escalation of care discussed even if they declined (Discuss DNR or withdrawal of care, Hospice)? DNR status @ -No What co-morbidities impacted this encounter? (DM, HTN, Smoking, COPD, CAD, Cancer, CVA, ARF, Chemo, Hep., AIDS, mental health diagnosis, sleep apnea, morbid obesity)? @ -None Was patient admitted / discharged? Hospital course, mention meds given and route, prescriptions, significant lab abnormalities, going to OR and other pertinent info. @ -Patient has chronic headaches similar to this multiple previous visits. Patient has had previous evaluations including imaging. Patient will receive medication be discharged. Undiagnosed new problem with uncertain prognosis? @ -No Drug Therapy requiring intensive monitoring for toxicity (Heparin, Nitro, Insulin, Cardizem)? @ -No Were any procedures done? @ -No Diagnosis/symptom? @ -Headache Acute, or Chronic, or Acute on Chronic? @ -Acute on chronic Uncomplicated (without systemic symptoms) or Complicated (systemic symptoms)? @ -default Side effects of treatment? @ -No Exacerbation, Progression, or Severe Exacerbation? @ -Exacerbation Poses a threat to life or bodily function? How? (Chest pain, [place], [place], pneumonia, PE, COPD, DKA, ARF, appy, cholecystitis, CVA, Diverticulitis, Homicidal, Suicidal, threat to staff... and all critical care pts) @ -No Disposition Clinical Impression: Headache Disposition: HOME SELF-CARE Condition: Stable Instructions (If sedation given, give patient instructions): Migraine Headache (ED) Additional Instructions: Patient was discharged prior to completing discharge instructions Is patient prescribed a controlled substance at d/c from ED?: No Referrals: José Reece MD [Primary Care Provider] - 1-2 days Time of Disposition: 12:15
== END 2022-05-06 12:26 | disposition home or self-care (01) ==
LOC: EC 10:58
DX: R51.9 Headache, unspecified (principal); I10 Essential (primary) hypertension; E78.5 Hyperlipidemia, unspecified; F31.9 Bipolar disorder, unspecified; F41.9 Anxiety disorder, unspecified; F17.200 Nicotine dependence, unspecified, uncomplicated; Z88.0 Allergy status to penicillin; Z88.1 Allergy status to other antibiotic agents; Z88.2 Allergy status to sulfonamides; Z88.5 Allergy status to narcotic agent; Z88.6 Allergy status to analgesic agent; Z88.8 Allergy status to other drugs, medicaments and biological substances; Z91.040 Latex allergy status; Z79.899 Other long term (current) drug therapy
CPT/HCPCS: 99282; 96372 ×2; J2405; J1170

== ENCOUNTER 2022-06-26 20:00 | Emergency (ER) | payer OTHER ==
[2022-06-26 20:09] VITALS: PULSE 132; RESP 22; TEMP 97.6
[2022-06-26] MEDS ORDERED: HYDROmorphone 0.5 MG/0.5 ML SYRINGE IM STA (20:26)
[2022-06-26] MEDS ORDERED: ONDANSETRON 4 MG/2 ML VIAL IM STA (20:26)
[2022-06-26] MEDS ORDERED: ONDANSETRON ODT 4 MG TAB PO STA (20:41)
[2022-06-26] MEDS ORDERED: SODIUM CHLORIDE 0.9% 1,000 ML IV STA (20:41)
[2022-06-26] MEDS ORDERED: diphenhydrAMINE 50 MG/ML 1 ML VIAL IVP STA (20:41)
[2022-06-26] MEDS ORDERED: HYDROmorphone 0.5 MG/0.5 ML SYRINGE IVP STA (20:42)
--- NOTE | 2022-06-26 22:18 | ED ---
Headache HPI - General Chief Complaint: Headache Stated Complaint: migraine Time Seen by Provider: 06/26/22 20:11 Mode of arrival: wheelchair Limitations: no limitations - History of Present Illness Initial Comments: Patient is a 52-year-old female who presents to the emergency department for migraine. It started 2 weeks ago. Patient has history of migraines she presents often for treatment. Patient reports pain all over her head, unchanged from her previous migraines. She reports refractory pain after her migraine medications. She denies head trauma, recent falls. Patient has history of chronic leg weakness, reports no change. She does report intermittent nausea an d vomiting which worsened today, She denies fever, chills, neck pain, cold like symptoms, abdominal pain, diarrhea. No chest pain or shortness of breath. - Related Data Home Medications Medication Instructions Recorded Confirmed amLODIPine [Norvasc] 5 mg PO HS 04/28/20 06/11/22 Omeprazole [PriLOSEC] 20 mg PO BID 12/15/20 06/11/22 Thiamine [Vitamin B-1] 100 mg PO HS 01/04/21 06/11/22 Atorvastatin [Lipitor] 40 mg PO HS 07/20/21 06/11/22 DULoxetine HCL [Cymbalta] 60 mg PO HS 07/20/21 06/11/22 Atogepant [Qulipta] 60 mg PO HS 06/03/22 06/11/22 Cyclobenzaprine [Flexeril] 10 mg PO TID PRN 06/03/22 06/11/22 HYDROcodone/APAP 10-325MG [[place] 1 tab PO TID PRN 06/03/22 06/11/22 10-325] Spironolactone [Aldactone] 50 mg PO DAILY 06/04/22 06/11/22 Previous Rx's Medication Instructions Recorded Lacosamide [Vimpat] 100 mg PO BID 7 Days #14 tab 01/16/21 Ondansetron Odt [Zofran ODT] 4 mg PO Q8HR PRN #10 tab 10/24/21 Aspirin 81 mg PO DAILY tab 06/04/22 Clopidogrel [Plavix] 75 mg PO DAILY #90 tab 06/04/22 Ondansetron Odt [Zofran Odt] 4 mg PO Q8HR PRN #9 tab 06/26/22 Allergies Allergy/AdvReac Type Severity Reaction Status Date / Time dihydroergotamine Allergy Unknown Unknown Verified 06/26/22 20:09 [From Migranal] buprenorphine Allergy Rash/Hives Verified 06/26/22 20:09 gabapentin [From Neurontin] Allergy Itching/Swe Verified 06/26/22 20:09 lling latex Allergy Anaphylaxis Verified 06/26/22 20:09 naproxen [From Naprosyn] Allergy Anaphylaxis Verified 06/26/22 20:09 Penicillins Allergy Anaphylaxis Verified 06/26/22 20:09 prednisone Allergy Swelling Verified 06/26/22 20:09 quetiapine fumarate Allergy Itching, Verified 06/26/22 20:09 [From Seroquel] leg cramps rofecoxib [From Vioxx] Allergy Itching, Verified 06/26/22 20:09 leg cramps terfenadine [From Seldane] Allergy Rash/Hives Verified 06/26/22 20:09 tramadol Allergy Nausea & Verified 06/26/22 20:09 Vomiting/LEG CRAMPS/HEART FLUTTERS calcium carbonate [From DHEA] AdvReac Chest Pain Verified 06/26/22 20:09 calcium phosphate,dibasic AdvReac Chest Pain Verified 06/26/22 20:09 [From DHEA] clindamycin AdvReac muscle Verified 06/26/22 20:09 cramps clonidine AdvReac fast Verified 06/26/22 20:09 heartbeat, migraine dextromethorphan HBr AdvReac face/neck Verified 06/26/22 20:09 [From NyQuil] flushing diazepam [From Valium] AdvReac Nausea & Verified 06/26/22 20:09 Vomiting divalproex sodium AdvReac Nausea & Verified 06/26/22 20:09 [From Depakote] Vomiting doxylamine [From NyQuil] AdvReac face "beet Verified 06/26/22 20:09 red", elevated temp. ibuprofen [From Motrin] AdvReac abdominal Verified 06/26/22 20:09 & muscle cramps indomethacin [From Indocin] AdvReac Abdominal Verified 06/26/22 20:09 Pain,N/V ketorolac tromethamine AdvReac "built up Verified 06/26/22 20:09 [From Toradol] in system", had to be given something to reverse lorazepam [From Ativan] AdvReac Nausea & Verified 06/26/22 20:09 Vomiting memantine [From Namenda] AdvReac Itching Verified 06/26/22 20:09 metoclopramide HCl AdvReac muscle Verified 06/26/22 20:09 [From Reglan] cramps nortriptyline [From Pamelor] AdvReac Chest Pain Verified 06/26/22 20:09 prasterone (DHEA) [From DHEA] AdvReac Chest Pain Verified 06/26/22 20:09 prochlorperazine AdvReac leg Verified 06/26/22 20:09 [From Compazine] cramping propranolol AdvReac Chest Pain Verified 06/26/22 20:09 pseudoephedrine HCl AdvReac face "beet Verified 06/26/22 20:09 [From NyQuil] red", elevated temp. quetiapine [From Seroquel] AdvReac leg Verified 06/26/22 20:09 cramping sumatriptan [From Imitrex] AdvReac migrane Verified 06/26/22 20:09 sumatriptan succinate AdvReac migrane Verified 06/26/22 20:09 [From Imitrex] topiramate [From Topamax] AdvReac "built up Verified 06/26/22 20:09 in system", had to be given something to reverse trazodone AdvReac "built up Verified 06/26/22 20:09 in system", had to be given something to reverse zolpidem tartrate AdvReac "Became Verified 06/26/22 20:09 [From Ambien] violent with no memory" zonisamide [From Zonegran] AdvReac inability Verified 06/26/22 20:09 to eat artificial sweetener AdvReac SEVERE Uncoded 06/26/22 20:09 MIGRAINE HEADACHE prosyn AdvReac Itching Uncoded 06/26/22 20:09 Review of Systems ROS Statement: Those systems with pertinent positive or pertinent negative responses have been documented in the HPI. ROS Other: All systems not noted in ROS Statement are negative. Past Medical History Past Medical History: Hyperlipidemia, Hypertension, Seizure Disorder Additional Past Medical History / Comment(s): Migraines, viral meningitis x3 as a child, 1995, 2000, chronic back pain, nerve blocks 08/2016 and 12/2016. Last seizure 10/10/2020, "ABSENT SEIZURES. HX TACHYCARDIA, GBS/CIPD, PTSD. History of Any Multi-Drug Resistant Organisms: None Reported Past Surgical History: Appendectomy, Section, Cholecystectomy, Heart Catheterization With Stent, Hernia Repair, Hysterectomy, Orthopedic Surgery, Tonsillectomy, Tubal Ligation Additional Past Surgical History / Comment(s): Hiatal Hernia, umbilical hernia repair, left rotator cuff repair, bilateral knee scopes, pain clinic procedures- occipital nerve block. abd exploratory sx(endometreosis), 3 abd scopes 1981, 1989, 1991), lumbar puncture. EGD. nerve biopsy, salvalry gland biospy Past Anesthesia/Blood Transfusion Reactions: No Reported Reaction Additional Past Anesthesia/Blood Transfusion Reaction / Comment(s): Claustrophobic Date of Last Stent Placement:: 06/03/2022 Past Psychological History: Anxiety, Bipolar, Panic Disorder, PTSD Smoking Status: Former smoker Past Alcohol Use History: None Reported Past Drug Use History: None Reported - Past Family History Mother Family Medical History: Cancer, Dementia, Diabetes Mellitus, GERD/Reflux, Hyperlipidemia, Hypertension, Thyroid Disorder Additional Family Medical History / Comment(s): CABG Father History Unknown: Yes Family Medical History: No Reported History General Exam Limitations: no limitations General appearance: alert, in no apparent distress Head exam: Present: atraumatic, normocephalic, normal inspection Eye exam: Present: normal appearance, PERRL, EOMI. Absent: scleral icterus, conjunctival injection, periorbital swelling Neck exam: Present: normal inspection, full ROM. Absent: tenderness, meningi smus, lymphadenopathy Respiratory exam: Present: normal lung sounds bilaterally. Absent: respiratory distress, wheezes, rales, rhonchi, stridor Cardiovascular Exam: Present: normal rhythm, tachycardia, normal heart sounds. Absent: regular rate, systolic murmur, diastolic murmur, rubs, gallop, clicks GI/Abdominal exam: Present: soft, normal bowel sounds. Absent: distended, tenderness, guarding, rebound, rigid Neurological exam: Present: alert, oriented X3, CN II-XII intact Psychiatric exam: Present: normal affect, normal mood Skin exam: Present: warm, dry, intact, normal color. Absent: rash Course Vital Signs 06/26/22 06/26/22 20:07 23:22 Temperature 97.6 F Pulse Rate 132 H Respiratory 22 Rate Blood Pressure 96/72 99/61 O2 Sat by Pulse 99 Oximetry Medical Decision Making - Medical Decision Making EKG taken at 22:22, interpreted by me. Sinus tachycardia, T-wave flattening in V4-V6, no ST segment elevation or d epression Ventricular rate 100, MI interval 149, QRS duration 82, QTC 331 Was pt. sent in by a medical professional or institution (, PA, COMMUNICATIONS TOWER CLIMBER, urgent care, hospital, or longterm...) When possible be specific @ -No Did you speak to anyone other than the patient for history (EMS, parent, family, police, friend...)? What history was obtained from this source @ -No Did you review nursing and triage notes (agree or disagree)? Why? @ -I reviewed and agree with nursing and triage notes Were old charts reviewed (outside hosp., previous admission, EMS record, old EKG, old radiological studies, urgent care reports/EKG's, longterm records)? Report findings @ -No old charts were reviewed Differential Diagnosis (chest pain, altered mental status, abdominal pain women, abdominal pain men, vaginal bleeding, weakness, fever, dyspnea, syncope, headache, dizziness, GI bleed, back pain, seizure, CVA, palpatations, mental health)? @ Differential Headache: Migraine, tension, cluster, carbon monoxide, central venous thrombosis, pension karma temporal arteritis, acute closure glaucoma, intercranial hemorrhage, mastoiditis, sinusitis, head injury, this is not meant to be an all-inclusive list. EKG interpreted by me (3pts min.). @ -As above X-rays interpreted by me (1pt min.). @ -Yes, chest xray negative for acute process CT interpreted by me (1pt min.). @ -None done U/S interpreted by me (1pt. min.). @ -None done What testing was considered but not performed or refused? (CT, X-rays, U/S, labs)? Why? @ -None What meds were considered but not given or refused? Why? @ -None Did you discuss the management of the patient with other professionals (p rofessionals i.e. , PA, COMMUNICATIONS TOWER CLIMBER, lab, RT, psych nurse, nursing home social worker, store planner, teacher, global chief experience officer, medical case worker)? Give summary @ -No Was smoking cessation discussed for >3mins.? @ -No Was critical care preformed (if so, how long)? @ -No Were there social determinants of health that impacted care today? How? (Homelessness, low income, unemployed, alcoholism, drug addiction, transpor tation, low edu. Level, literacy, decrease access to med. care, alf, rehab)? @ -No Was there de-escalation of care discussed even if they declined (Discuss DNR or withdrawal of care, Hospice)? DNR status @ -No What co-morbidities impacted this encounter? (DM, HTN, Smoking, COPD, CAD, Cancer, CVA, ARF, Chemo, Hep., AIDS, mental health diagnosis, sleep apnea, morbid obesity)? @ -None Was patient admitted / discharged? Hospital course, mention meds given and route, prescriptions, significant lab abnormalities, going to OR and other pertinent info. @ -Patient presenting for migraine. Patient is tachycardic at 130. No weakness. She given migraine cocktail with improvement of symptoms and tachycardia. On discharge patient reports chest pain. Patient states she feels that there is a rock on her chest. EKG shows no evidence of acute ischemia. troponin is wi thin normal limits. There is mild hypokalemia at 2.9 which was treated with K- dur. Patient given nitro with little improvement. Patient requesting dilaudid which I declined. Results discussed with patient. Patient did have recent stenting however she was evaluated by cardiology for chest pain recently during which she was cleared. Patient will follow up outpatient. Undiagnosed new problem with uncertain prognosis? @ -[o] Drug Therapy requiring intensive monitoring for toxicity (Heparin, Nitro, Insulin, Cardizem)? @ -[o] Were any procedures done? @ -[o] Diagnosis/symptom? @ -migraine, chest pain Acute, or Chronic, or Acute on Chronic? @ -acute on chronic Uncomplicated (without systemic symptoms) or Complicated (systemic symptoms)? @ -uncomplicated Side effects of treatment? @ -No Exacerbation, Progression, or Severe Exacerbation? @ -No Poses a threat to life or bodily function? How? (Chest pain, USA, VT, pneumonia, PE, COPD, DKA, ARF, appy, cholecystitis, CVA, Diverticulitis, Homicidal, Suicidal, threat to staff... and all critical care pts) @ -No Dr. Adams is my attending/ - Lab Data Result diagrams: 06/26/22 22:20 06/26/22 22:20 Lab Results 06/26/22 06/26/22 06/26/22 Range/Units 21:30 22:20 22:20 WBC 10.3 (3.8-10.6) k/uL RBC 4.17 (3.80-5.40) m/uL Hgb 13.2 (11.4-16.0) gm/dL Hct 39.5 (34.0-46.0) % MCV 94.7 (80.0-100.0) fL MCH 31.8 (25.0-35.0) pg MCHC 33.6 (31.0-37.0) g/dL RDW 14.1 (11.5-15.5) % Plt Count 322 (150-450) k/uL MPV 8.3 Neutrophils % 77 % Lymphocytes % 11 % Monocytes % 6 % Eosinophils % 3 % Basophils % 0 % Neutrophils # 8.0 H (1.3-7.7) k/uL Lymphocytes # 1.2 (1.0-4.8) k/uL Monocytes # 0.6 (0-1.0) k/uL Eosinophils # 0.3 (0-0.7) k/uL Basophils # 0.0 (0-0.2) k/uL PT (9.0-12.0) sec INR (<1.2) APTT (22.0-30.0) sec Sodium 132 L (137-145) mmol/L Potassium 2.9 L (3.5-5.1) mmol/L Chloride 94 L (98-107) mmol/L Carbon Dioxide 31 H (22-30) mmol/L Anion Gap 7 mmol/L BUN 8 (7-17) mg/dL Creatinine 0.78 (0.52-1.04) mg/dL Est GFR (CKD-EPI)AfAm >90 (>60 ml/min/1.73 sqM) Est GFR (CKD-EPI)NonAf 89 (>60 ml/min/1.73 sqM) Glucose 125 H (74-99) mg/dL Calcium 7.9 L (8.4-10.2) mg/dL Total Bilirubin 0.4 (0.2-1.3) mg/dL AST 24 (14-36) U/L ALT 21 (4-34) U/L Alkaline Phosphatase 167 H (38-126) U/L Troponin I (0.000-0.034) ng/mL Total Protein 5.8 L (6.3-8.2) g/dL Albumin 3.4 L (3.5-5.0) g/dL Influenza Type A (PCR) Not Detected (Not Detectd) Influenza Type B (PCR) Not Detected (Not Detectd) RSV (PCR) Not Detected (Not Detectd) SARS-CoV-2 (PCR) Not Detected (Not Detectd) 06/26/22 06/26/22 Range/Units 22:20 22:20 WBC (3.8-10.6) k/uL RBC (3.80-5.40) m/uL Hgb (11.4-16.0) gm/dL Hct (34.0-46.0) % MCV (80.0-100.0) fL MCH (25.0-35.0) pg MCHC (31.0-37.0) g/dL RDW (11.5-15.5) % Plt Count (150-450) k/uL MPV Neutrophils % % Lymphocytes % % Monocytes % % Eosinophils % % Basophils % % Neutrophils # (1.3-7.7) k/uL Lymphocytes # (1.0-4.8) k/uL Monocytes # (0-1.0) k/uL Eosinophils # (0-0.7) k/uL Basophils # (0-0.2) k/uL PT 11.3 (9.0-12.0) sec INR 1.1 (<1.2) APTT 28.8 (22.0-30.0) sec Sodium (137-145) mmol/L Potassium (3.5-5.1) mmol/L Chloride (98-107) mmol/L Carbon Dioxide (22-30) mmol/L Anion Gap mmol/L BUN (7-17) mg/dL Creatinine (0.52-1.04) mg/dL Est GFR (CKD-EPI)AfAm (>60 ml/min/1.73 sqM) Est GFR (CKD-EPI)NonAf (>60 ml/min/1.73 sqM) Glucose (74-99) mg/dL Calcium (8.4-10.2) mg/dL Total Bilirubin (0.2-1.3) mg/dL AST (14-36) U/L ALT (4-34) U/L Alkaline Phosphatase (38-126) U/L Troponin I <0.012 (0.000-0.034) ng/mL Total Protein (6.3-8.2) g/dL Albumin (3.5-5.0) g/dL Influenza Type A (PCR) (Not Detectd) Influenza Type B (PCR) (Not Detectd) RSV (PCR) (Not Detectd) SARS-CoV-2 (PCR) (Not Detectd) Disposition Clinical Impression: Migraine, Chest pain Disposition: HOME SELF-CARE Condition: Good Instructions (If sedation given, give patient instructions): Chest Pain (ED), Migraine Headache (ED) Additional Instructions: Follow up with PCP in one to 2 days for repeat potassium level. Take Zofran as directed. Return to the emergency department if you experience new, concerning, or worsening symptoms Prescriptions: Ondansetron Odt [Zofran Odt] 4 mg PO Q8HR PRN #9 tab PRN Reason: Nausea Is patient prescribed a controlled substance at d/c from ED?: No Referrals: José Reece MD [Primary Care Provider] - 1-2 days
[2022-06-26] MEDS ORDERED: ACETAMINOPHEN TAB 500 MG TAB PO STA (22:26)
[2022-06-26 22:41] LABS: Basophils % (A) 0 %; Eosinophils # (A) 0.3 k/uL (0-0.7); Eosinophils % (A) 3 %; HCT 39.5 % (34.0-46.0); HGB 13.2 gm/dL (11.4-16.0); Lymphocytes # (A) 1.2 k/uL (1.0-4.8); Lymphocytes % (A) 11 %; MCH 31.8 pg (25.0-35.0); MCHC 33.6 g/dL (31.0-37.0); MCV 94.7 fL (80.0-100.0); Mean Platelet Volume 8.3; Monocytes # (A) 0.6 k/uL (0-1.0); Monocytes % (A) 6 %; Neutrophils % (A) 77 %; Platelet Count 322 k/uL (150-450); RBC 4.17 m/uL (3.80-5.40); RDW 14.1 % (11.5-15.5); WBC 10.3 k/uL (3.8-10.6)
[2022-06-26 22:52] LABS: INR 1.1 (<1.2); Partial Thromboplastin Time 28.8 sec (22.0-30.0); Prothrombin Time 11.3 sec (9.0-12.0)
[2022-06-26 22:56] LABS: ALT 21 U/L (4-34); AST 24 U/L (14-36); African American GFR (CKD) >90 (>60 ml/min/1.73 sqM); Albumin 3.4 g/dL (3.5-5.0); Alkaline Phosphatase 167 U/L (38-126); Anion Gap 7 mmol/L; Blood Urea Nitrogen 8 mg/dL (7-17); Calcium 7.9 mg/dL (8.4-10.2); Carbon Dioxide 31 mmol/L (22-30); Chloride 94 mmol/L (98-107); Glucose 125 mg/dL (74-99); Non-African American GFR(CKD) 89 (>60 ml/min/1.73 sqM); Potassium 2.9 mmol/L (3.5-5.1); Sodium 132 mmol/L (137-145); Total Bilirubin 0.4 mg/dL (0.2-1.3); Total Protein 5.8 g/dL (6.3-8.2)
[2022-06-26] MEDS: NITROGLYCERIN SL TABS 0.4 MG TAB SUBLINGUAL PRN ×2 (23:07→23:17)
[2022-06-26] MEDS ORDERED: POTASSIUM CHLORIDE ER 20 MEQ TAB.ER PO STA (23:19)
[2022-06-26 23:23] VITALS: BP 99/61
--- NOTE | 2022-06-26 23:25 | XR ---
EXAMINATION TYPE: XR chest 2V DATE OF EXAM: 06/26/2022 COMPARISON: NONE HISTORY: Vertebra TECHNIQUE: 2 views FINDINGS: Heart is normal. Lungs are clear of consolidation. There are no hilar masses. There is left -sided central venous catheter with tip in the superior vena cava. No pleural effusion. Bony thorax i s intact. IMPRESSION: No active cardiopulmonary disease. Normal heart. No change.
== END 2022-06-26 23:34 | disposition home or self-care (01) ==
LOC: EC 20:00
DX: G43.909 Migraine, unspecified, not intractable, without status migrainosus (principal); E87.6 Hypokalemia; R07.9 Chest pain, unspecified; I10 Essential (primary) hypertension; E78.5 Hyperlipidemia, unspecified; F31.9 Bipolar disorder, unspecified; F41.9 Anxiety disorder, unspecified; Z20.822 Contact with and (suspected) exposure to COVID-19; Z79.899 Other long term (current) drug therapy; Z87.891 Personal history of nicotine dependence; Z88.0 Allergy status to penicillin; Z88.1 Allergy status to other antibiotic agents; Z88.2 Allergy status to sulfonamides; Z88.5 Allergy status to narcotic agent; Z88.6 Allergy status to analgesic agent; Z88.8 Allergy status to other drugs, medicaments and biological substances; Z91.040 Latex allergy status; Z91.048 Other nonmedicinal substance allergy status
CPT/HCPCS: 36415; 93005; 80053; 84484; 85025; 85610; 85730; 87636; 71046; 99284; 96374; 96375; 96361 ×2; J1200; J1170

== ENCOUNTER 2022-07-04 19:55 | Inpatient (IN) | payer OTHER ==
[2022-07-04] MEDS ORDERED: HYDROmorphone 0.5 MG/0.5 ML SYRINGE IVP STA (21:09)
[2022-07-04] MEDS ORDERED: ONDANSETRON 4 MG/2 ML VIAL IVP STA (21:09)
[2022-07-04] MEDS ORDERED: SODIUM CHLORIDE 0.9% 1,000 ML IV STA (21:09)
[2022-07-04 21:32] LABS: ALT 43 U/L (4-34); AST 28 U/L (14-36); African American GFR (CKD) >90 (>60 ml/min/1.73 sqM); Albumin 4.1 g/dL (3.5-5.0); Alkaline Phosphatase 180 U/L (38-126); Anion Gap 14 mmol/L; Blood Urea Nitrogen 5 mg/dL (7-17); Calcium 9.6 mg/dL (8.4-10.2); Carbon Dioxide 31 mmol/L (22-30); Chloride 87 mmol/L (98-107); Glucose 116 mg/dL (74-99); Lipase 82 U/L (23-300); Non-African American GFR(CKD) >90 (>60 ml/min/1.73 sqM); Potassium 2.8 mmol/L (3.5-5.1); Sodium 132 mmol/L (137-145); Total Bilirubin 0.5 mg/dL (0.2-1.3)
[2022-07-04 21:37] LABS: Basophils % (A) 0 %; Eosinophils % (A) 0 %; HCT 44.7 % (34.0-46.0); HGB 15.3 gm/dL (11.4-16.0); Lymphocytes # (A) 1.7 k/uL (1.0-4.8); Lymphocytes % (A) 14 %; MCH 31.7 pg (25.0-35.0); MCHC 34.1 g/dL (31.0-37.0); MCV 92.8 fL (80.0-100.0); Mean Platelet Volume 7.9; Monocytes # (A) 0.6 k/uL (0-1.0); Monocytes % (A) 5 %; Neutrophils # (A) 9.4 k/uL (1.3-7.7); Neutrophils % (A) 79 %; Platelet Count 385 k/uL (150-450); RBC 4.82 m/uL (3.80-5.40); RDW 14.1 % (11.5-15.5); WBC 11.8 k/uL (3.8-10.6)
--- NOTE | 2022-07-04 21:52 | ED ---
General Adult HPI - General Chief complaint: Nausea/Vomiting/Diarrhea Stated complaint: vomiting,back pain Time Seen by Provider: 07/04/22 21:01 Source: patient, RN notes reviewed, old records reviewed Mode of arrival: wheelchair - History of Present Illness Initial comments: 52-year-old female presenting for evaluation of vomiting. Symptoms have been present for the past one week. Patient is unable to keep food or medications down. She denies chest pain. Denies fever. She states she had a bowel movement yesterday. No diarrhea. She does have some mild generalized abdominal pain. - Related Data Home Medications Medication Instructions Recorded Confirmed amLODIPine [Norvasc] 5 mg PO HS 04/28/20 06/11/22 Omeprazole [PriLOSEC] 20 mg PO BID 12/15/20 06/11/22 Thiamine [Vitamin B-1] 100 mg PO HS 01/04/21 06/11/22 Atorvastatin [Lipitor] 40 mg PO HS 07/20/21 06/11/22 DULoxetine HCL [Cymbalta] 60 mg PO HS 07/20/21 06/11/22 Atogepant [Qulipta] 60 mg PO HS 06/03/22 06/11/22 Cyclobenzaprine [Flexeril] 10 mg PO TID PRN 06/03/22 06/11/22 HYDROcodone/APAP 10-325MG [[place] 1 tab PO TID PRN 06/03/22 06/11/22 10-325] Spironolactone [Aldactone] 50 mg PO DAILY 06/04/22 06/11/22 Previous Rx's Medication Instructions Recorded Lacosamide [Vimpat] 100 mg PO BID 7 Days #14 tab 01/16/21 Ondansetron Odt [Zofran ODT] 4 mg PO Q8HR PRN #10 tab 10/24/21 Aspirin 81 mg PO DAILY tab 06/04/22 Clopidogrel [Plavix] 75 mg PO DAILY #90 tab 06/04/22 Ondansetron Odt [Zofran Odt] 4 mg PO Q8HR PRN #9 tab 06/26/22 Allergies Allergy/AdvReac Type Severity Reaction Status Date / Time dihydroergotamine Allergy Unknown Unknown Verified 06/26/22 20:09 [From Migranal] buprenorphine Allergy Rash/Hives Verified 06/26/22 20:09 gabapentin [From Neurontin] Allergy Itching/Swe Verified 06/26/22 20:09 lling latex Allergy Anaphylaxis Verified 07/04/22 20:11 naproxen [From Naprosyn] Allergy Anaphylaxis Verified 07/04/22 20:11 Penicillins Allergy Anaphylaxis Verified 07/04/22 20:11 prednisone Allergy Swelling Verified 07/04/22 20:11 quetiapine fumarate Allergy Itching, Verified 07/04/22 20:11 [From Seroquel] leg cramps rofecoxib [From Vioxx] Allergy Itching, Verified 07/04/22 20:11 leg cramps terfenadine [From Seldane] Allergy Rash/Hives Verified 07/04/22 20:11 tramadol Allergy Nausea & Verified 07/04/22 20:11 Vomiting/LEG CRAMPS/HEART FLUTTERS calcium carbonate [From DHEA] AdvReac Chest Pain Verified 07/04/22 20:11 calcium phosphate,dibasic AdvReac Chest Pain Verified 07/04/22 20:11 [From DHEA] clindamycin AdvReac muscle Verified 07/04/22 20:11 cramps clonidine AdvReac fast Verified 07/04/22 20:11 heartbeat, migraine dextromethorphan HBr AdvReac face/neck Verified 07/04/22 20:11 [From NyQuil] flushing diazepam [From Valium] AdvReac Nausea & Verified 07/04/22 20:11 Vomiting divalproex sodium AdvReac Nausea & Verified 07/04/22 20:11 [From Depakote] Vomiting doxylamine [From NyQuil] AdvReac face "beet Verified 07/04/22 20:11 red", elevated temp. ibuprofen [From Motrin] AdvReac abdominal Verified 07/04/22 20:11 & muscle cramps indomethacin [From Indocin] AdvReac Abdominal Verified 07/04/22 20:11 Pain,N/V ketorolac tromethamine AdvReac "built up Verified 07/04/22 20:11 [From Toradol] in system", had to be given something to reverse lorazepam [From Ativan] AdvReac Nausea & Verified 07/04/22 20:11 Vomiting memantine [From Namenda] AdvReac Itching Verified 07/04/22 20:11 metoclopramide HCl AdvReac muscle Verified 07/04/22 20:11 [From Reglan] cramps nortriptyline [From Pamelor] AdvReac Chest Pain Verified 07/04/22 20:11 prasterone (DHEA) [From DHEA] AdvReac Chest Pain Verified 07/04/22 20:11 prochlorperazine AdvReac leg Verified 07/04/22 20:11 [From Compazine] cramping propranolol AdvReac Chest Pain Verified 07/04/22 20:11 pseudoephedrine HCl AdvReac face "beet Verified 07/04/22 20:11 [From NyQuil] red", elevated temp. quetiapine [From Seroquel] AdvReac leg Verified 07/04/22 20:11 cramping sumatriptan [From Imitrex] AdvReac migrane Verified 07/04/22 20:11 sumatriptan succinate AdvReac migrane Verified 07/04/22 20:11 [From Imitrex] topiramate [From Topamax] AdvReac "built up Verified 07/04/22 20:11 in system", had to be given something to reverse trazodone AdvReac "built up Verified 07/04/22 20:11 in system", had to be given something to reverse zolpidem tartrate AdvReac "Became Verified 07/04/22 20:11 [From Ambien] violent with no memory" zonisamide [From Zonegran] AdvReac inability Verified 07/04/22 20:11 to eat artificial sweetener AdvReac SEVERE Uncoded 07/04/22 20:11 MIGRAINE HEADACHE prosyn AdvReac Itching Uncoded 07/04/22 20:11 Review of Systems ROS Statement: Those systems with pertinent positive or pertinent negative responses have been documented in the HPI. ROS Other: All systems not noted in ROS Statement are negative. Past Medical History Past Medical History: Hyperlipidemia, Hypertension, Seizure Disorder Additional Past Medical History / Comment(s): Migraines, viral meningitis x3 as a child, 1995, 2000, chronic back pain, nerve blocks 08/2016 and 12/2016. Last seizure 10/10/2020, "ABSENT SEIZURES. HX TACHYCARDIA, GBS/CIPD, PTSD. History of Any Multi-Drug Resistant Organisms: None Reported Past Surgical History: Appendectomy, Section, Cholecystectomy, Heart Catheterization With Stent, Hernia Repair, Hysterectomy, Orthopedic Surgery, Tonsillectomy, Tubal Ligation Additional Past Surgical History / Comment(s): Hiatal Hernia, umbilical hernia repair, left rotator cuff repair, bilateral knee scopes, pain clinic procedures- occipital nerve block. abd exploratory sx(endometreosis), 3 abd scopes 1981, 1989, 1991), lumbar puncture. EGD. nerve biopsy, salvalry gland biospy Past Anesthesia/Blood Transfusion Reactions: No Reported Reaction Additional Past Anesthesia/Blood Transfusion Reaction / Comment(s): Claust rophobic Date of Last Stent Placement:: 06/03/2022 Past Psychological History: Anxiety, Bipolar, Panic Disorder, PTSD Smoking Status: Former smoker Past Alcohol Use History: None Reported Past Drug Use History: None Reported - Past Family History Mother Family Medical History: Cancer, Dementia, Diabetes Mellitus, GERD/Reflux, Hyperlipidemia, Hypertension, Thyroid Disorder Additional Family Medical History / Comment(s): CABG Father History Unknown: Yes Family Medical History: No Reported History General Exam General appearance: alert, in no apparent distress Head exam: Present: atraumatic, normocephalic Eye exam: Present: normal appearance, PERRL ENT exam: Present: mucous membranes dry Neck exam: Present: normal inspection. Absent: tenderness, meningismus Respiratory exam: Present: normal lung sounds bilaterally. Absent: respiratory distress, wheezes Cardiovascular Exam: Present: normal rhythm, tachycardia GI/Abdominal exam: Present: soft, tenderness (mild). Absent: distended Extremities exam: Present: normal inspection, normal capillary refill. Absent: pedal edema Neurological exam: Present: alert, oriented X3, CN II-XII intact. Absent: motor sensory deficit Skin exam: Present: warm, dry, intact. Absent: cyanosis, diaphoretic Course Vital Signs 07/04/22 20:05 Temperature 98.1 F Pulse Rate 134 H Respiratory 18 Rate Blood Pressure 117/84 O2 Sat by Pulse 100 Oximetry EKG Findings - EKG Comments: EKG Findings:: EKG: Sinus tachycardia rate of 110, TN interval 147, QRS duration 86, QTC [address] segment elevation. Medical Decision Making - Medical Decision Making Was pt. sent in by a medical professional or institution (, PA, RESOURCE DEVELOPMENT DIRECTOR, urgent care, hospital, or jail...) When possible be specific @ -No Did you speak to anyone other than the patient for history (EMS, parent, family, police, friend...)? What history was obtained from this source @ -No Did you review nursing and triage notes (agree or disagree)? Why? @ -I reviewed and agree with nursing and triage notes Were old charts reviewed (outside hosp., previous admission, EMS record, old EKG, old radiological studies, urgent care reports/EKG's, jail records)? Report findings @ -No old charts were reviewed Differential Diagnosis (chest pain, altered mental status, abdominal pain women, abdominal pain men, vaginal bleeding, weakness, fever, dyspnea, syncope, headache, dizziness, GI bleed, back pain, seizure, CVA, palpatations, mental health, musculoskeletal)? @ -Differential Abdominal Pain Women: Appendicitis, Cholecystitis, diverticulosis, ischemic bowel, pancreatitis, hepatitis, UTI, gastroenteritis, AAA, incarcerated hernia, bowel obstruction, constipation, inflammatory bowel, hepatitis, peptic ulcer disease, splenic infarction, perforated viscus, , kidney stone, placenta abruption, this is not meant to be an all-inclusive list EKG interpreted by me (3pts min.). @ -As above X-rays interpreted by me (1pt min.). @ -None done CT interpreted by me (1pt min.). @ -None done U/S interpreted by me (1pt. min.). @ -None done What testing was considered but not performed or refused? (CT, X-rays, U/S, labs)? Why? @ -None What meds were considered but not given or refused? Why? @ -None Did you discuss the management of the patient with other professionals (professionals i.e. , PA, RESOURCE DEVELOPMENT DIRECTOR, lab, RT, psych nurse, social services technician, clinical trial educator, teacher, first officer and flight instructor, casework manager)? Give summary @ -Case discussed with [facility] Was smoking cessation discussed for >3mins.? @ -No Was critical care preformed (if so, how long)? @ -No Were there social determinants of health that impacted care today? How? (Gal elessness, low income, unemployed, alcoholism, drug addiction, transportation, low edu. Level, literacy, decrease access to med. care, nursing home, rehab)? @ -No Was there de-escalation of care discussed even if they declined (Discuss DNR or withdrawal of care, Hospice)? DNR status @ -No What co-morbidities impacted this encounter? (DM, HTN, Smoking, COPD, CAD, Cancer, CVA, ARF, Chemo, Hep., AIDS, mental health diagnosis, sleep apnea, morbid obesity)? @ -None Was patient admitted / discharged? Hospital course, mention meds given and route, prescriptions, significant lab abnormalities, going to OR and other pertinent info. @ -52-year-old female with intractable nausea vomiting, dehydration, hypokalemia. Admitted Undiagnosed new problem with uncertain prognosis? @ -No Drug Therapy requiring intensive monitoring for toxicity (Heparin, Nitro, Insulin, Cardizem)? @ -No Were any procedures done? @ -No Diagnosis/symptom? @ -Dehydration, hypokalemia, vomiting Acute, or Chronic, or Acute on Chronic? @ -Acute - Lab Data Result diagrams: 07/04/22 20:20 07/04/22 20:20 Lab Results 07/04/22 07/04/22 Range/Units 20:20 20:20 WBC 11.8 H (3.8-10.6) k/uL RBC 4.82 (3.80-5.40) m/uL Hgb 15.3 (11.4-16.0) gm/dL Hct 44.7 (34.0-46.0) % MCV 92.8 (80.0-100.0) fL MCH 31.7 (25.0-35.0) pg MCHC 34.1 (31.0-37.0) g/dL RDW 14.1 (11.5-15.5) % Plt Count 385 (150-450) k/uL MPV 7.9 Neutrophils % 79 % Lymphocytes % 14 % Monocytes % 5 % Eosinophils % 0 % Basophils % 0 % Neutrophils # 9.4 H (1.3-7.7) k/uL Lymphocytes # 1.7 (1.0-4.8) k/uL Monocytes # 0.6 (0-1.0) k/uL Eosinophils # 0.0 (0-0.7) k/uL Basophils # 0.0 (0-0.2) k/uL Sodium 132 L (137-145) mmol/L Potassium 2.8 L (3.5-5.1) mmol/L Chloride 87 L (98-107) mmol/L Carbon Dioxide 31 H (22-30) mmol/L Anion Gap 14 mmol/L BUN 5 L (7-17) mg/dL Creatinine 0.75 (0.52-1.04) mg/dL Est GFR (CKD-EPI)AfAm >90 (>60 ml/min/1.73 sqM) Est GFR (CKD-EPI)NonAf >90 (>60 ml/min/1.73 sqM) Glucose 116 H (74-99) mg/dL Calcium 9.6 (8.4-10.2) mg/dL Total Bilirubin 0.5 (0.2-1.3) mg/dL AST 28 (14-36) U/L ALT 43 H (4-34) U/L Alkaline Phosphatase 180 H (38-126) U/L Total Protein 7.0 (6.3-8.2) g/dL Albumin 4.1 (3.5-5.0) g/dL Lipase 82 (23-300) U/L Disposition Clinical Impression: Intractable vomiting with nausea, Hypokalemia Disposition: ADMITTED IP TO THIS HOSP Condition: Stable Is patient prescribed a controlled substance at d/c from ED?: No Referrals: José Reece MD [Primary Care Provider] - 1-2 days Time of Disposition: 22:52
[2022-07-04] MEDS ORDERED: NALOXONE 0.4 MG/ML 1 ML VIAL IV PRN (22:47)
[2022-07-04] MEDS: SODIUM CHLORIDE 0.9% 1,000 ML IV SCH (23:24)
[2022-07-04] MEDS: ONDANSETRON 4 MG/2 ML VIAL IVP PRN (23:24)
[2022-07-05] MEDS: HYDROcodone/APAP 10-325MG 1 EACH TAB PO PRN ×2 (00:21→11:19)
[2022-07-05] MEDS: POTASSIUM CHLORIDE 10 MEQ in WATER FOR INJECTION 1 100ML.BAG IVPB SCH ×4 (00:51→04:30)
[2022-07-05 03:22] LABS: Appearance,Urine Clear (Clear); Bilirubin,Urine Negative (Negative); Blood,Urine Negative (Negative); Color,Urine Light Yellow; Glucose,Urine (UA) Negative (Negative); Ketones,Urine Negative (Negative); Leukocyte Esterase,Urine Negative (Negative); Nitrite,Urine Negative (Negative); Protein,Urine Negative (Negative); Specific Gravity,Urine 1.004 (1.001-1.035); Urobilinogen,Urine <2.0 mg/dL (<2.0)
[2022-07-05] MEDS ORDERED: HYDROmorphone 0.5 MG/0.5 ML SYRINGE IVP STA (03:42)
[2022-07-05] MEDS: ONDANSETRON 4 MG/2 ML VIAL IVP PRN ×3 (03:53→20:40)
[2022-07-05] MEDS ORDERED: LACOSAMIDE 50 MG TABLET PO SCH (09:00)
[2022-07-05] MEDS: CLOPIDOGREL 75 MG TAB PO SCH (11:22)
[2022-07-05] MEDS: ASPIRIN 81 MG PO SCH (11:22)
[2022-07-05] MEDS: SPIRONOLACTONE 25 MG TAB PO SCH (12:12)
[2022-07-05] MEDS ORDERED: METOCLOPRAMIDE 5 MG/ML 2 ML VIAL IM PRN (14:01)
[2022-07-05] MEDS ORDERED: HEPARIN SODIUM 1,000 UN/ML (10ML VL) IV ONE (15:14)
[2022-07-05] MEDS ORDERED: HEPARIN SODIUM 1,000 UN/ML (10ML VL) IV PRN (15:14)
[2022-07-05] MEDS: SODIUM CHLORIDE 0.9% 1,000 ML IV SCH ×2 (15:19→17:38)
[2022-07-05] MEDS: LACOSAMIDE IV 100 MG in SODIUM CHLORIDE 0.9% 50 ML IVPB SCH ×2 (15:33→22:19)
[2022-07-05 16:03] LABS: Basophils % (A) 0 %; Eosinophils % (A) 0 %; HCT 35.3 % (34.0-46.0); Lymphocytes # (A) 1.2 k/uL (1.0-4.8); Lymphocytes % (A) 14 %; MCHC 34.1 g/dL (31.0-37.0); MCV 93.8 fL (80.0-100.0); Mean Platelet Volume 7.7; Monocytes # (A) 0.5 k/uL (0-1.0); Monocytes % (A) 6 %; Neutrophils # (A) 6.8 k/uL (1.3-7.7); Neutrophils % (A) 78 %; Platelet Count 282 k/uL (150-450); RBC 3.77 m/uL (3.80-5.40); RDW 14.4 % (11.5-15.5); WBC 8.7 k/uL (3.8-10.6)
[2022-07-05] MEDS: HEPARIN SOD,PORK IN 0.45% NACL 25,000 UNIT in 0.45% NACL 1 250ML.BAG IV SCH (16:14)
[2022-07-05 16:17] LABS: ALT 16 U/L (4-34); AST 22 U/L (14-36); African American GFR (CKD) >90 (>60 ml/min/1.73 sqM); Albumin 2.9 g/dL (3.5-5.0); Albumin/Globulin Ratio 1.2; Alkaline Phosphatase 138 U/L (38-126); Anion Gap 5 mmol/L; Blood Urea Nitrogen 4 mg/dL (7-17); Calcium 7.7 mg/dL (8.4-10.2); Carbon Dioxide 32 mmol/L (22-30); Chloride 97 mmol/L (98-107); Globulin 2.4 g/dL; Glucose 97 mg/dL (74-99); Non-African American GFR(CKD) >90 (>60 ml/min/1.73 sqM); Prothrombin Time 10.7 sec (9.0-12.0); Sodium 134 mmol/L (137-145); Total Bilirubin 0.5 mg/dL (0.2-1.3); Total Protein 5.3 g/dL (6.3-8.2)
[2022-07-05 16:27] LABS: Potassium 3.1 mmol/L (3.5-5.1)
[2022-07-05] MEDS: amLODIPine 5 MG TAB PO SCH (20:32)
[2022-07-05] MEDS: THIAMINE 100 MG TAB PO SCH (20:32)
[2022-07-05] MEDS: ATORVASTATIN 40 MG TAB PO SCH (20:32)
[2022-07-05] MEDS: MORPHINE SULFATE 2 MG/ML SYRINGE IVP PRN (20:40)
[2022-07-06] MEDS: MORPHINE SULFATE 2 MG/ML SYRINGE IVP PRN ×5 (01:18→20:56)
[2022-07-06] MEDS: SODIUM CHLORIDE 0.9% 1,000 ML IV SCH ×2 (04:26→16:10)
[2022-07-06 07:24] LABS: Basophils % (A) 1 %; Eosinophils % (A) 1 %; HCT 37.3 % (34.0-46.0); HGB 12.4 gm/dL (11.4-16.0); Lymphocytes # (A) 1.8 k/uL (1.0-4.8); Lymphocytes % (A) 25 %; MCH 31.9 pg (25.0-35.0); MCHC 33.3 g/dL (31.0-37.0); MCV 95.7 fL (80.0-100.0); Mean Platelet Volume 7.6; Monocytes # (A) 0.5 k/uL (0-1.0); Monocytes % (A) 6 %; Neutrophils # (A) 4.7 k/uL (1.3-7.7); Neutrophils % (A) 65 %; Platelet Count 264 k/uL (150-450); RBC 3.89 m/uL (3.80-5.40); RDW 14.3 % (11.5-15.5); WBC 7.3 k/uL (3.8-10.6)
[2022-07-06 07:40] LABS: Partial Thromboplastin Time 52.5 sec (22.0-30.0); Prothrombin Time 10.7 sec (9.0-12.0)
[2022-07-06 07:51] LABS: African American GFR (CKD) >90 (>60 ml/min/1.73 sqM); Anion Gap 4 mmol/L; Blood Urea Nitrogen 4 mg/dL (7-17); Calcium 8.1 mg/dL (8.4-10.2); Carbon Dioxide 31 mmol/L (22-30); Chloride 101 mmol/L (98-107); Glucose 97 mg/dL (74-99); Non-African American GFR(CKD) >90 (>60 ml/min/1.73 sqM); Potassium 3.2 mmol/L (3.5-5.1); Sodium 136 mmol/L (137-145)
[2022-07-06] MEDS: ONDANSETRON 4 MG/2 ML VIAL IVP PRN ×2 (07:58→16:33)
[2022-07-06] MEDS: LACOSAMIDE IV 100 MG in SODIUM CHLORIDE 0.9% 50 ML IVPB SCH ×2 (10:01→20:56)
[2022-07-06] MEDS: CLOPIDOGREL 75 MG TAB PO SCH (10:15)
[2022-07-06] MEDS: ASPIRIN 81 MG PO SCH (10:15)
[2022-07-06] MEDS: SPIRONOLACTONE 25 MG TAB PO SCH (10:15)
[2022-07-06] MEDS: POTASSIUM CHLORIDE 10 MEQ in WATER FOR INJECTION 1 100ML.BAG IVPB SCH ×2 (10:46→11:55)
[2022-07-06] MEDS: ASPIRIN 300 MG SUPP RECTAL SCH (10:48)
--- NOTE | 2022-07-06 11:36 | P.CRDCN ---
History of Present Illness Consult date: 07/06/22 Reason for Consult (text): Recent stent, intractable nausea and vomiting History of present illness: History of present illness: This is a 52-year-old patient of Dr. Corrales with first appointment scheduled for 07/10 with past medical history of history of hypertension, hyperlipidemia, Ivana Cárdenas syndrome, wheelchair bound remote history of tobacco use quit approximately 8 months ago. Patient was recently hospitalized for chest pain, stent to the LAD on 06/03. Patient gives history that she has had nausea and vomiting for the past 2 weeks and for the past 3-4 days is unable to keep any of her medications down. She is complaining of abdominal pain across her abdomen that is more severe on the right and posterior to the back. She has had her gallbladder out. She denies any fever or chills. No sick contacts. She has been on morphine and Zofran. She is still not able to keep any of her medications down. She has been started on heparin drip. EKG was sinus tachycardia 110 bpm WBC 8.7, hemoglobin 12, platelet count 282. Sodium 134, potassium 3.1, chloride 97, CO2 32, BUN 4 and creatinine 0.72. Alkaline phosphatase 138 otherwise liver function tests are normal. Home cardiac medications: Norvasc 5 mg at bedtime, aspirin 81 mg daily, atorvastatin 40 mg at bedtime, Plavix 75 mg daily, spironolactone 50 mg daily Cardiac catheterization 06/03/2022 at [facility] and there was 50- 60% mid LAD lesion and she was then transferred to [facility], iFR and FFR were abnormal with 60-70% mid LAD stenosis status post PCI in the mid LAD. Review Of Systems: At the time of my evaluation: Constitutional: No fever, no chills. No weakness, fatigue or lethargy. EENT: No headache. No dizziness. Lungs: No shortness of breath, cough, no sputum production. No wheezing. Cardiovascular: Denies chest pain, no lower extremity edema. No palpitations. No paroxysmal nocturnal dyspnea. No orthopnea. No lightheadedness or dizziness. No syncopal episodes. Abdominal: Reports abdominal pain. Reports intractable nausea, vomiting. No diarrhea. No constipation. No bloody or tarry stools. Genitourinary: No dysuria.. No urinary retention. Musculoskeletal: No myalgias. No muscle weakness, no frequent falls. No back pain. No neck pain. Integumentary: No wounds. No rash. No unusual bruising. Neurologic: No aphasia. No facial droop. No change in mentation. No head injury. No headache. Physical examination: Gen: This is a obese 52-year-old female. She is resting in bed and appears to be comfortable. VS: reviewed HEENT: Head is atraumatic, normocephalic. Pupils equal, round. Sclerae is anic teric. NECK: Supple. No JVD. LUNGS: Clear to auscultation. No wheezes or rhonchi. No intercostal retractions. HEART: Regular rate and rhythm. No murmur. ABDOMEN: Soft. EXTREMITIES: No pedal edema. No calf tenderness. NEUROLOGICAL: Patient is awake, alert and oriented x3. Assessment: Intractable nausea and vomiting Hypokalemia Coronary artery disease with recent stenting of the LAD 06/03 Hypertension Hyperlipidemia Ivana Cárdenas syndrome Plan: Continue patient on heparin drip and start aspirin one rectally daily until patient is able to resume home cardiac medications No cardiac workup at this time Thank you kindly for this consultation. Nurse practitioner note has been reviewed, I agree with documented findings and plan of care. Patient was seen and examined. Past Medical History Past Medical History: Hyperlipidemia, Hypertension, Seizure Disorder Additional Past Medical History / Comment(s): Migraines, viral meningitis x3 as a child, 1995, 2000, chronic back pain, nerve blocks 08/2016 and 12/2016. Last seizure 10/10/2020, "ABSENT SEIZURES. HX TACHYCARDIA, GBS/CIPD, PTSD. History of Any Multi-Drug Resistant Organisms: None Reported Past Surgical History: Appendectomy, Section, Cholecystectomy, Heart Catheterization With Stent, Hernia Repair, Hysterectomy, Orthopedic Surgery, Tonsillectomy, Tubal Ligation Additional Past Surgical History / Comment(s): Hiatal Hernia, umbilical hernia repair, left rotator cuff repair, bilateral knee scopes, pain clinic procedures- occipital nerve block. abd exploratory sx(endometreosis), 3 abd scopes 1981, 1989, 1991), lumbar puncture. EGD. nerve biopsy, salvalry gland biospy Past Anesthesia/Blood Transfusion Reactions: No Reported Reaction Additional Past Anesthesia/Blood Transfusion Reaction / Comment(s): Claustrophobic Date of Last Stent Placement:: 06/03/2022 Past Psychological History: Anxiety, Bipolar, Panic Disorder, PTSD Smoking Status: Former smoker Past Alcohol Use History: None Reported Past Drug Use History: None Reported - Past Family History Mother Family Medical History: Cancer, Dementia, Diabetes Mellitus, GERD/Reflux, Hyperlipidemia, Hypertension, Thyroid Disorder Additional Family Medical History / Comment(s): CABG Father History Unknown: Yes Family Medical History: No Reported History Medications and Allergies Home Medications Medication Instructions Recorded Confirmed Type amLODIPine [Norvasc] 5 mg PO HS 04/28/20 07/05/22 History Omeprazole [PriLOSEC] 20 mg PO BID 12/15/20 07/05/22 History Thiamine [Vitamin B-1] 100 mg PO HS 01/04/21 07/05/22 History Lacosamide [Vimpat] 100 mg PO BID 7 Days #14 tab 01/16/21 07/05/22 Rx Atorvastatin [Lipitor] 40 mg PO HS 07/20/21 07/05/22 History DULoxetine HCL [Cymbalta] 60 mg PO HS 07/20/21 07/05/22 History Atogepant [Qulipta] 60 mg PO HS 06/03/22 07/05/22 History Cyclobenzaprine [Flexeril] 10 mg PO TID PRN 06/03/22 07/05/22 History HYDROcodone/APAP 10-325MG [[place] 1 tab PO TID PRN 06/03/22 07/05/22 History 10-325] Aspirin 81 mg PO DAILY tab 06/04/22 07/05/22 Rx Clopidogrel [Plavix] 75 mg PO DAILY #90 tab 06/04/22 07/05/22 Rx Spironolactone [Aldactone] 50 mg PO DAILY 06/04/22 07/05/22 History Ondansetron Odt [Zofran Odt] 4 mg PO Q8HR PRN #9 tab 06/26/22 07/05/22 Rx Allergies Allergy/AdvReac Type Severity Reaction Status Date / Time dihydroergotamine Allergy Unknown Unknown Verified 07/05/22 07:16 [From Migranal] buprenorphine Allergy Rash/Hives Verified 07/05/22 07:16 gabapentin [From Neurontin] Allergy Itching/Swe Verified 07/05/22 07:16 lling latex Allergy Anaphylaxis Verified 07/05/22 07:16 naproxen [From Naprosyn] Allergy Anaphylaxis Verified 07/05/22 07:16 Penicillins Allergy Anaphylaxis Verified 07/05/22 07:16 prednisone Allergy Swelling Verified 07/05/22 07:16 quetiapine fumarate Allergy Itching, Verified 07/05/22 07:16 [From Seroquel] leg cramps rofecoxib [From Vioxx] Allergy Itching, Verified 07/05/22 07:16 leg cramps terfenadine [From Seldane] Allergy Rash/Hives Verified 07/05/22 07:16 tramadol Allergy Nausea & Verified 07/05/22 07:16 Vomiting/LEG CRAMPS/HEART FLUTTERS calcium carbonate [From DHEA] AdvReac Chest Pain Verified 07/05/22 07:16 calcium phosphate,dibasic AdvReac Chest Pain Verified 07/05/22 07:16 [From DHEA] clindamycin AdvReac muscle Verified 07/05/22 07:16 cramps clonidine AdvReac fast Verified 07/05/22 07:16 heartbeat, migraine dextromethorphan HBr AdvReac face/neck Verified 07/05/22 07:16 [From NyQuil] flushing diazepam [From Valium] AdvReac Nausea & Verified 07/05/22 07:16 Vomiting divalproex sodium AdvReac Nausea & Verified 07/05/22 07:16 [From Depakote] Vomiting doxylamine [From NyQuil] AdvReac face "beet Verified 07/05/22 07:16 red", elevated temp. ibuprofen [From Motrin] AdvReac abdominal Verified 07/05/22 07:16 & muscle cramps indomethacin [From Indocin] AdvReac Abdominal Verified 07/05/22 07:16 Pain,N/V ketorolac tromethamine AdvReac "built up Verified 07/05/22 07:16 [From Toradol] in system", had to be given something to reverse lorazepam [From Ativan] AdvReac Nausea & Verified 07/05/22 07:16 Vomiting memantine [From Namenda] AdvReac Itching Verified 07/05/22 07:16 metoclopramide HCl AdvReac muscle Verified 07/05/22 07:16 [From Reglan] cramps nortriptyline [From Pamelor] AdvReac Chest Pain Verified 07/05/22 07:16 prasterone (DHEA) [From DHEA] AdvReac Chest Pain Verified 07/05/22 07:16 prochlorperazine AdvReac leg Verified 07/05/22 07:16 [From Compazine] cramping propranolol AdvReac Chest Pain Verified 07/05/22 07:16 pseudoephedrine HCl AdvReac face "beet Verified 07/05/22 07:16 [From NyQuil] red", elevated temp. quetiapine [From Seroquel] AdvReac leg Verified 07/05/22 07:16 cramping sumatriptan [From Imitrex] AdvReac migrane Verified 07/05/22 07:16 sumatriptan succinate AdvReac migrane Verified 07/05/22 07:16 [From Imitrex] topiramate [From Topamax] AdvReac "built up Verified 07/05/22 07:16 in system", had to be given something to reverse trazodone AdvReac "built up Verified 07/05/22 07:16 in system", had to be given something to reverse zolpidem tartrate AdvReac "Became Verified 07/05/22 07:16 [From Ambien] violent with no memory" zonisamide [From Zonegran] AdvReac inability Verified 07/05/22 07:16 to eat artificial sweetener AdvReac SEVERE Uncoded 07/04/22 20:11 MIGRAINE HEADACHE prosyn AdvReac Itching Uncoded 07/04/22 20:11 Physical Exam Vitals: Vital Signs Temp Pulse Pulse Resp BP BP Pulse Ox 07/06/22 07:00 98.1 F 115 H 20 134/86 98 07/06/22 01:22 98.2 F 100 18 128/84 92 L 07/05/22 20:00 98.2 F 108 H 19 114/78 97 07/05/22 15:00 107 H 18 105/72 99 07/05/22 13:00 110 H 18 111/68 99 07/05/22 11:00 106 H 18 112/78 98 Intake and Output 07/05/22 07/06/22 07/06/22 22:59 06:59 14:59 Intake Total 68.511 Balance 68.511 Intake: Intake, IV Titration 68.511 Amount Heparin Sod,Pork in 0.45% 68.511 NaCl 25,000 unit In 0.45 % NaCl 1 250ml.bag @ 12 UNITS/KG/HR 8.709 mls/hr IV .Q24H [facility] Rx#: [id number] Other: Voiding Method Toilet # Voids 2 2 Results 07/06/22 07:01 07/06/22 07:01 Cardiac Enzymes 07/05/22 Range/Units 15:40 AST 22 (14-36) U/L Coagulation 07/05/22 07/05/22 07/06/22 Range/Units 15:40 22:16 07:01 PT 10.7 10.7 (9.0-12.0) sec APTT 83.0 H 52.5 H (22.0-30.0) sec CBC 07/05/22 07/06/22 Range/Units 15:40 07:01 WBC 8.7 7.3 (3.8-10.6) k/uL RBC 3.77 L 3.89 (3.80-5.40) m/uL Hgb 12.0 D 12.4 (11.4-16.0) gm/dL Hct 35.3 37.3 (34.0-46.0) % Plt Count 282 264 (150-450) k/uL Comprehensive Metabolic Panel 07/05/22 07/06/22 Range/Units 15:40 07:01 Sodium 134 L 136 L (137-145) mmol/L Potassium 3.1 L 3.2 L (3.5-5.1) mmol/L Chloride 97 L 101 (98-107) mmol/L Carbon Dioxide 32 H 31 H (22-30) mmol/L BUN 4 L 4 L (7-17) mg/dL Creatinine 0.72 0.70 (0.52-1.04) mg/dL Glucose 97 97 (74-99) mg/dL Calcium 7.7 L 8.1 L (8.4-10.2) mg/dL AST 22 (14-36) U/L ALT 16 (4-34) U/L Alkaline Phosphatase 138 H (38-126) U/L Total Protein 5.3 L (6.3-8.2) g/dL Albumin 2.9 L (3.5-5.0) g/dL Current Medications Generic Name Dose Route Start Last Admin Trade Name Freq PRN Reason Stop Dose Admin Hydrocodone Bitart/Acetaminophen 1 each 07/04/22 22:48 07/05/22 11:19 Hydrocodone/Apap 10-325mg 1 Each Tab PO 1 each TID PRN Administration Pain Amlodipine Besylate 5 mg 07/05/22 21:00 07/05/22 20:32 Amlodipine 5 Mg Tab PO Not Given HS [facility] Aspirin 81 mg 07/05/22 09:00 07/05/22 11:22 Aspirin 81 Mg PO Not Given DAILY [facility] Atorvastatin Calcium 40 mg 07/05/22 21:00 07/05/22 20:32 Atorvastatin 40 Mg Tab PO Not Given HS [facility] Clopidogrel Bisulfate 75 mg 07/05/22 09:00 07/05/22 11:22 Clopidogrel 75 Mg Tab PO Not Given DAILY [facility] Heparin Sodium (Porcine) 0 unit 07/05/22 15:14 Heparin Sodium 1,000 Un/Ml (10ml Vl) IV PER PROTOCOL PRN Low PTT Protocol Sodium Chloride 1,000 mls @ 100 mls/hr 07/04/22 22:30 07/06/22 04:26 Saline 0.9% IV Not Given .Q10H [facility] Lacosamide 100 mg/ Sodium 60 mls @ 100 mls/hr 07/05/22 14:00 07/05/22 22:19 Chloride IVPB 100 mls/hr BID [facility]A Administration Heparin Sodium/Sodium Chloride 250 mls @ 8.709 mls/hr 07/05/22 15:30 07/06/22 00:06 25,000 unit/ Sodium Chloride IV 10 units/kg/hr .Q24H [facility] 7.258 mls/hr Titration Protocol 12 UNITS/KG/HR Potassium Chloride 10 meq/ IV 100 mls @ 100 mls/hr 07/06/22 09:30 Solution IVPB 07/06/22 11:29 Q1H [facility] Metoclopramide HCl 10 mg 07/05/22 14:01 Metoclopramide 5 Mg/Ml 2 Ml Vial IM Q6HR PRN Nausea And Vomiting Morphine Sulfate 2 mg 07/05/22 14:03 07/06/22 07:58 Morphine Sulfate 2 Mg/Ml Syringe IVP 2 mg Q4HR PRN Administration Pain/Discomfort Naloxone HCl 0.2 mg 07/04/22 22:47 Naloxone 0.4 Mg/Ml 1 Ml Vial IV Q2M PRN Opioid Reversal Ondansetron HCl 4 mg 07/04/22 22:47 07/06/22 07:58 Ondansetron 4 Mg/2 Ml Vial IVP 4 mg Q8HR PRN Administration Nausea And Vomiting Spironolactone 50 mg 07/05/22 09:00 07/05/22 12:12 Spironolactone 25 Mg Tab PO Not Given DAILY [facility] Thiamine HCl 100 mg 07/05/22 21:00 07/05/22 20:32 Thiamine 100 Mg Tab PO Not Given HS [facility] Intake and Output 07/05/22 07/06/22 07/06/22 22:59 06:59 14:59 Intake Total 68.511 Balance 68.511 Intake: Intake, IV Titration 68.511 Amount Heparin Sod,Pork in 0.45% 68.511 NaCl 25,000 unit In 0.45 % NaCl 1 250ml.bag @ 12 UNITS/KG/HR 8.709 mls/hr IV .Q24H [facility] Rx#: [id number] Other: Voiding Method Toilet # Voids 2 2 07/06/22 07:01 07/06/22 07:01
[2022-07-06] MEDS: HEPARIN SOD,PORK IN 0.45% NACL 25,000 UNIT in 0.45% NACL 1 250ML.BAG IV SCH (16:45)
[2022-07-06] MEDS: METOPROLOL TARTRATE 5 MG/5 ML VIAL IVP SCH (16:46)
--- NOTE | 2022-07-06 18:43 | P.HPIM ---
History of Present Illness H&P Date: 07/05/22 Chief Complaint: Chest pain/nausea/vomiting 52-year-old patient of Dr. Corrales with first appointment scheduled for 07/10 with past medical history of history of hypertension, hyperlipidemia, Ivana Cárdenas syndrome, wheelchair bound remote history of tobacco use quit approxim ately 8 months ago. Patient was recently hospitalized for chest pain, stent to the LAD on 06/03. Patient gives history that she has had nausea and vomiting for the past 2 weeks and for the past 3-4 days is unable to keep any of her medications down. She is complaining of abdominal pain across her abdomen that is more severe on the right and posterior to the back. She has had her gallbladder out. She denies any fever or chills. No sick contacts. She has been on morphine and Zofran. She is still not able to keep any of her medications down. She has been started on heparin drip. EKG was sinus tachycardia 110 bpm WBC 8.7, hemoglobin 12, platelet count 282. Sodium 134, potassium 3.1, chloride 97, CO2 32, BUN 4 and creatinine 0.72. Alkaline phosphatase 138 otherwise liver function tests are normal. Review of Systems Constitutional: No fever, no chills. No weakness, fatigue or lethargy. EENT: No headache. No dizziness. Lungs: No shortness of breath, cough, no sputum production. No wheezing. Cardiovascular: Denies chest pain, no lower extremity edema. No palpitations. No paroxysmal nocturnal dyspnea. No orthopnea. No lightheadedness or dizzi ness. No syncopal episodes. Abdominal: Reports abdominal pain. Reports intractable nausea, vomiting. No diarrhea. No constipation. No bloody or tarry stools. Genitourinary: No dysuria.. No urinary retention. Musculoskeletal: No myalgias. No muscle weakness, no frequent falls. No back pain. No neck pain. Integumentary: No wounds. No rash. No unusual bruising. Neurologic: No aphasia. No facial droop. No change in mentation. No head injury. No headache. Past Medical History Past Medical History: Hyperlipidemia, Hypertension, Seizure Disorder Additional Past Medical History / Comment(s): Migraines, viral meningitis x3 as a child, 1995, 2000, chronic back pain, nerve blocks 08/2016 and 12/2016. Last seizure 10/10/2020, "ABSENT SEIZURES. HX TACHYCARDIA, GBS/CIPD, PTSD. History of Any Multi-Drug Resistant Organisms: None Reported Past Surgical History: Appendectomy, Section, Cholecystectomy, Heart Catheterization With Stent, Hernia Repair, Hysterectomy, Orthopedic Surgery, Tonsillectomy, Tubal Ligation Additional Past Surgical History / Comment(s): Hiatal Hernia, umbilical hernia repair, left rotator cuff repair, bilateral knee scopes, pain clinic procedures- occipital nerve block. abd exploratory sx(endometreosis), 3 abd scopes 1981, 1989, 1991), lumbar puncture. EGD. nerve biopsy, salvalry gland biospy Past Anesthesia/Blood Transfusion Reactions: No Reported Reaction Additional Past Anesthesia/Blood Transfusion Reaction / Comment(s): Claustrophobic Date of Last Stent Placement:: 06/03/2022 Past Psychological History: Anxiety, Bipolar, Panic Disorder, PTSD Smoking Status: Former smoker Past Alcohol Use History: None Reported Past Drug Use History: None Reported - Past Family History Mother Family Medical History: Cancer, Dementia, Diabetes Mellitus, GERD/Reflux, Hyperlipidemia, Hypertension, Thyroid Disorder Additional Family Medical History / Comment(s): CABG Father History Unknown: Yes Family Medical History: No Reported History Medications and Allergies Home Medications Medication Instructions Recorded Confirmed Type amLODIPine [Norvasc] 5 mg PO HS 04/28/20 07/05/22 History Omeprazole [PriLOSEC] 20 mg PO BID 12/15/20 07/05/22 History Thiamine [Vitamin B-1] 100 mg PO HS 01/04/21 07/05/22 History Lacosamide [Vimpat] 100 mg PO BID 7 Days #14 tab 01/16/21 07/05/22 Rx Atorvastatin [Lipitor] 40 mg PO HS 07/20/21 07/05/22 History DULoxetine HCL [Cymbalta] 60 mg PO HS 07/20/21 07/05/22 History Atogepant [Qulipta] 60 mg PO HS 06/03/22 07/05/22 History Cyclobenzaprine [Flexeril] 10 mg PO TID PRN 06/03/22 07/05/22 History HYDROcodone/APAP 10-325MG [[place] 1 tab PO TID PRN 06/03/22 07/05/22 History 10-325] Aspirin 81 mg PO DAILY tab 06/04/22 07/05/22 Rx Clopidogrel [Plavix] 75 mg PO DAILY #90 tab 06/04/22 07/05/22 Rx Spironolactone [Aldactone] 50 mg PO DAILY 06/04/22 07/05/22 History Ondansetron Odt [Zofran Odt] 4 mg PO Q8HR PRN #9 tab 06/26/22 07/05/22 Rx Allergies Allergy/AdvReac Type Severity Reaction Status Date / Time dihydroergotamine Allergy Unknown Unknown Verified 07/05/22 07:16 [From Migranal] buprenorphine Allergy Rash/Hives Verified 07/05/22 07:16 gabapentin [From Neurontin] Allergy Itching/Swe Verified 07/05/22 07:16 lling latex Allergy Anaphylaxis Verified 07/05/22 07:16 naproxen [From Naprosyn] Allergy Anaphylaxis Verified 07/05/22 07:16 Penicillins Allergy Anaphylaxis Verified 07/05/22 07:16 prednisone Allergy Swelling Verified 07/05/22 07:16 quetiapine fumarate Allergy Itching, Verified 07/05/22 07:16 [From Seroquel] leg cramps rofecoxib [From Vioxx] Allergy Itching, Verified 07/05/22 07:16 leg cramps terfenadine [From Seldane] Allergy Rash/Hives Verified 07/05/22 07:16 tramadol Allergy Nausea & Verified 07/05/22 07:16 Vomiting/LEG CRAMPS/HEART FLUTTERS calcium carbonate [From DHEA] AdvReac Chest Pain Verified 07/05/22 07:16 calcium phosphate,dibasic AdvReac Chest Pain Verified 07/05/22 07:16 [From DHEA] clindamycin AdvReac muscle Verified 07/05/22 07:16 cramps clonidine AdvReac fast Verified 07/05/22 07:16 heartbeat, migraine dextromethorphan HBr AdvReac face/neck Verified 07/05/22 07:16 [From NyQuil] flushing diazepam [From Valium] AdvReac Nausea & Verified 07/05/22 07:16 Vomiting divalproex sodium AdvReac Nausea & Verified 07/05/22 07:16 [From Depakote] Vomiting doxylamine [From NyQuil] AdvReac face "beet Verified 07/05/22 07:16 red", elevated temp. ibuprofen [From Motrin] AdvReac abdominal Verified 07/05/22 07:16 & muscle cramps indomethacin [From Indocin] AdvReac Abdominal Verified 07/05/22 07:16 Pain,N/V ketorolac tromethamine AdvReac "built up Verified 07/05/22 07:16 [From Toradol] in system", had to be given something to reverse lorazepam [From Ativan] AdvReac Nausea & Verified 07/05/22 07:16 Vomiting memantine [From Namenda] AdvReac Itching Verified 07/05/22 07:16 metoclopramide HCl AdvReac muscle Verified 07/05/22 07:16 [From Reglan] cramps nortriptyline [From Pamelor] AdvReac Chest Pain Verified 07/05/22 07:16 prasterone (DHEA) [From DHEA] AdvReac Chest Pain Verified 07/05/22 07:16 prochlorperazine AdvReac leg Verified 07/05/22 07:16 [From Compazine] cramping propranolol AdvReac Chest Pain Verified 07/05/22 07:16 pseudoephedrine HCl AdvReac face "beet Verified 07/05/22 07:16 [From NyQuil] red", elevated temp. quetiapine [From Seroquel] AdvReac leg Verified 07/05/22 07:16 cramping sumatriptan [From Imitrex] AdvReac migrane Verified 07/05/22 07:16 sumatriptan succinate AdvReac migrane Verified 07/05/22 07:16 [From Imitrex] topiramate [From Topamax] AdvReac "built up Verified 07/05/22 07:16 in system", had to be given something to reverse trazodone AdvReac "built up Verified 07/05/22 07:16 in system", had to be given something to reverse zolpidem tartrate AdvReac "Became Verified 07/05/22 07:16 [From Ambien] violent with no memory" zonisamide [From Zonegran] AdvReac inability Verified 07/05/22 07:16 to eat artificial sweetener AdvReac SEVERE Uncoded 07/04/22 20:11 MIGRAINE HEADACHE prosyn AdvReac Itching Uncoded 07/04/22 20:11 Physical Exam Vitals: Vital Signs Temp Pulse Resp BP Pulse Ox 07/05/22 08:49 104 H 16 113/79 97 07/05/22 05:23 115 H 16 101/90 96 07/05/22 03:57 116 H 18 121/82 96 07/05/22 03:41 115 H 18 118/85 97 07/05/22 02:11 114 H 18 111/81 96 07/04/22 20:05 98.1 F 134 H 18 117/84 100 Intake and Output 07/04/22 07/05/22 07/05/22 22:59 06:59 14:59 Other: Weight 72.575 kg PHYSICAL EXAMINATION: GENERAL: The patient is alert and oriented x3, not in any acute distress. Well developed, well nourished. HEENT: Pupils are round and equally reacting to light. EOMI. No scleral icterus. No conjunctival pallor. Normocephalic, atraumatic. No pharyngeal erythema. No thyromegaly. CARDIOVASCULAR: S1 and S2 present. No murmurs, rubs, or gallops. PULMONARY: Chest is clear to auscultation, no wheezing or crackles. ABDOMEN: Soft, nontender, nondistended, normoactive bowel sounds. No palpable o rganomegaly. MUSCULOSKELETAL: No joint swelling or deformity. EXTREMITIES: No cyanosis, clubbing, or pedal edema. NEUROLOGICAL: Gross neurological examination did not reveal any focal deficits. SKIN: No rashes. Results CBC & Chem 7: 07/06/22 07:01 07/06/22 07:01 Labs: Abnormal Lab Results - Last 24 Hours (Table) 07/04/22 07/04/22 Range/Units 20:20 20:20 WBC 11.8 H (3.8-10.6) k/uL Neutrophils # 9.4 H (1.3-7.7) k/uL Sodium 132 L (137-145) mmol/L Potassium 2.8 L (3.5-5.1) mmol/L Chloride 87 L (98-107) mmol/L Carbon Dioxide 31 H (22-30) mmol/L BUN 5 L (7-17) mg/dL Glucose 116 H (74-99) mg/dL ALT 43 H (4-34) U/L Alkaline Phosphatase 180 H (38-126) U/L Assessment and Plan Assessment: 1. Intractable nausea and vomiting - Patient intolerant of medications; currently using Zofran versus Phenergan; unable to take Reglan - Continue with IV fluids to maintain hydration - Patient is placed on a clear liquid diet 2. Critical hypokalemia; supplemented in ED; current potassium level of 3.0; patient unable to tolerate oral potassium supplement or IV; needs slow IV supplementation 3. Coronary artery disease with recent stenting of LAD on 06/03/2022 --Cardiac catheterization 06/03/2022 at [facility] and there was 50-60% mid LAD lesion and she was then transferred to [facility], iFR and FFR were abnormal with 60-70% mid LAD stenosis status post PCI in the mid LAD. -- Patient hasn't been able to take aspirin or Plavix - Cardiology is consulted and they're agreeable with continue with IV heparin infusion and recommending starting aspirin rectally until patient is able to tolerate medications orally 4. Hypertension; Norvasc 5 mg daily, Aldactone 51 g daily 5. Hyperlipidemia; Lipitor 40 mg by mouth daily at bedtime 6. Ivana Cárdenas syndrome DVT prophylaxis; SCDs/IV heparin CODE STATUS; full code
[2022-07-06] MEDS: THIAMINE 100 MG TAB PO SCH (19:56)
[2022-07-06] MEDS: ATORVASTATIN 40 MG TAB PO SCH (19:56)
[2022-07-06] MEDS: amLODIPine 5 MG TAB PO SCH (19:56)
[2022-07-07] MEDS: ONDANSETRON 4 MG/2 ML VIAL IVP PRN ×3 (01:00→17:59)
[2022-07-07] MEDS: METOPROLOL TARTRATE 5 MG/5 ML VIAL IVP SCH ×4 (01:01→23:42)
[2022-07-07] MEDS: SODIUM CHLORIDE 0.9% 1,000 ML IV SCH ×3 (01:59→20:41)
[2022-07-07] MEDS: MORPHINE SULFATE 2 MG/ML SYRINGE IVP PRN ×6 (02:04→22:11)
[2022-07-07] MEDS: HYDROcodone/APAP 10-325MG 1 EACH TAB PO PRN (04:10)
[2022-07-07] MEDS: HEPARIN SOD,PORK IN 0.45% NACL 25,000 UNIT in 0.45% NACL 1 250ML.BAG IV SCH (05:42)
--- NOTE | 2022-07-07 09:00 | P.PN ---
Subjective Progress Note Date: 07/06/22 52-year-old patient of Dr. Corrales with first appointment scheduled for 07/10 with past medical history of history of hypertension, hyperlipidemia, Ivana Cárdenas syndrome, wheelchair bound remote history of tobacco use quit approximately 8 months ago. Patient was recently hospitalized for chest pain, stent to the LAD on 06/03. Patient gives history that she has had nausea and vomiting for the past 2 weeks and for the past 3-4 days is unable to keep any of her medications down. She is complaining of abdominal pain across her abdomen that is more severe on the right and posterior to the back. She has had her gallbladder out. She denies any fever or chills. No sick contacts. She has been on morphine and Zofran. She is still not able to keep any of her medications down. She has been started on heparin drip. EKG was sinus tachycardia 110 bpm WBC 8.7, hemoglobin 12, platelet count 282. Sodium 134, potassium 3.1, chloride 97, CO2 32, BUN 4 and creatinine 0.72. Alkaline phosphatase 138 otherwise liver function tests are normal. Objective - Vital Signs Vital signs: Vital Signs Temp 98.2 F 07/06/22 01:22 Pulse 100 07/06/22 01:22 Resp 18 07/06/22 01:22 BP 128/84 07/06/22 01:22 Pulse Ox 92 L 07/06/22 01:22 FiO2 Intake & Output 07/05/22 07/06/22 07/06/22 18:59 06:59 18:59 Intake Total 68.511 Balance 68.511 Intake: Intake, IV Titration 68.511 Amount Heparin Sod,Pork in 0.45% 68.511 NaCl 25,000 unit In 0.45 % NaCl 1 250ml.bag @ 12 UNITS/KG/HR 8.709 mls/hr IV .Q24H [facility] Rx#: [id number] Other: Voiding Method Toilet # Voids 2 - Exam PHYSICAL EXAMINATION: GENERAL: The patient is alert and oriented x3, not in any acute distress. Well developed, well nourished. HEENT: Pupils are round and equally reacting to light. EOMI. No scleral icterus. No conjunctival pallor. Normocephalic, atraumatic. No pharyngeal erythema. No thyromegaly. CARDIOVASCULAR: S1 and S2 present. No murmurs, rubs, or gallops. PULMONARY: Chest is clear to auscultation, no wheezing or crackles. ABDOMEN: Soft, nontender, nondistended, normoactive bowel sounds. No palpable organomegaly. MUSCULOSKELETAL: No joint swelling or deformity. EXTREMITIES: No cyanosis, clubbing, or pedal edema. NEUROLOGICAL: Gross neurological examination did not reveal any focal deficits. SKIN: No rashes. - Labs CBC & Chem 7: 07/06/22 07:01 07/06/22 07:01 Labs: Abnormal Lab Results - Last 24 Hours (Table) 07/05/22 07/05/22 07/05/22 Range/Units 15:40 15:40 22:16 RBC 3.77 L (3.80-5.40) m/uL APTT 83.0 H (22.0-30.0) sec Sodium 134 L (137-145) mmol/L Potassium 3.1 L (3.5-5.1) mmol/L Chloride 97 L (98-107) mmol/L Carbon Dioxide 32 H (22-30) mmol/L BUN 4 L (7-17) mg/dL Calcium 7.7 L (8.4-10.2) mg/dL Alkaline Phosphatase 138 H (38-126) U/L Total Protein 5.3 L (6.3-8.2) g/dL Albumin 2.9 L (3.5-5.0) g/dL 07/06/22 07/06/22 Range/Units 07:01 07:01 RBC (3.80-5.40) m/uL APTT 52.5 H (22.0-30.0) sec Sodium 136 L (137-145) mmol/L Potassium 3.2 L (3.5-5.1) mmol/L Chloride (98-107) mmol/L Carbon Dioxide 31 H (22-30) mmol/L BUN 4 L (7-17) mg/dL Calcium 8.1 L (8.4-10.2) mg/dL Alkaline Phosphatase (38-126) U/L Total Protein (6.3-8.2) g/dL Albumin (3.5-5.0) g/dL Assessment and Plan Assessment: 1. Intractable nausea and vomiting - Patient intolerant of medications; currently using Zofran versus Phenergan; unable to take Reglan - Continue with IV fluids to maintain hydration - Patient is placed on a clear liquid diet 2. Critical hypokalemia; supplemented in ED; current potassium level of 3.0; patient unable to tolerate oral potassium supplement or IV; needs slow IV supplementation 3. Coronary artery disease with recent stenting of LAD on 06/03/2022 --Cardiac catheterization 06/03/2022 at [facility] and there was 50-60% mid LAD lesion and she was then transferred to [facility], iFR and FFR were abnormal with 60-70% mid LAD stenosis status post PCI in the mid LAD. -- Patient hasn't been able to take aspirin or Plavix - Cardiology is consulted and they're agreeable with continue with IV heparin infusion and recommending starting aspirin rectally until patient is able to tolerate medications orally 4. Hypertension; Norvasc 5 mg daily, Aldactone 51 g daily 5. Hyperlipidemia; Lipitor 40 mg by mouth daily at bedtime 6. Ivana Cárdenas syndrome DVT prophylaxis; SCDs/IV heparin CODE STATUS; full code
[2022-07-07] MEDS: CLOPIDOGREL 75 MG TAB PO SCH (09:05)
[2022-07-07] MEDS: ASPIRIN 81 MG PO SCH (09:05)
[2022-07-07] MEDS: SPIRONOLACTONE 25 MG TAB PO SCH (09:05)
[2022-07-07] MEDS: ASPIRIN 300 MG SUPP RECTAL SCH (09:06)
--- NOTE | 2022-07-07 10:22 | CT ---
EXAMINATION TYPE: CT abdomen pelvis wo/w con DATE OF EXAM: 07/07/2022 HISTORY: Persistent abdominal pain with no bowel movement for [address] DLP: 980.6mGycm Automated Exposure Control for Dose Reduction was Utilized. CONTRAST: CT scan of the abdomen and pelvis is performed without oral and without and with IV Contrast, patient injected with CT April 14, 2022 mL of Isovue 300. COMPARISON: Prior CT April 14, 2022 and older CTs FINDINGS: LUNG BASES: No significant abnormality is appreciated. LIVER/GB: Persistent wedge-shaped area of diminished attenuation in the anterior liver abutting the i nterlobar fissure favoring focal fatty prominence on background of mild diffuse fatty infiltration si milar to prior studies. Cholecystectomy clips are redemonstrated. PANCREAS: No significant abnormality is seen. SPLEEN: No significant abnormality is seen. ADRENALS: No significant abnormality is seen. KIDNEYS: No renal calculi. Symmetric cortical medullary uptake and excretion without hydronephrosis s een bilaterally. BOWEL: Surgical changes near the level of diaphragm hiatus are redemonstrated. No significant small or large bowel dilatation. UTERUS/ADNEXA: Uterus is surgically absent. LYMPH NODES: No greater than 1cm abdominal or pelvic lymph nodes are appreciated. OSSEOUS STRUCTURES: Mild to moderate disc space narrowing and spurring L2-L3 level redemonstrated. OTHER: Mild calcified plaque of the aorta extends into branch vessels. IMPRESSION: No bowel obstruction. No significant colonic fecal prominence or impaction. No significan t new or acute finding is seen to account for patient's clinical symptoms.
[2022-07-07] MEDS: LACOSAMIDE IV 100 MG in SODIUM CHLORIDE 0.9% 50 ML IVPB SCH ×2 (10:31→20:41)
--- NOTE | 2022-07-07 12:47 | P.PN ---
Subjective Progress Note Date: 07/07/22 History of present illness: This is a 52-year-old patient of Dr. Corrales with first appointment scheduled for 07/10 with past medical history of history of hypertension, hyperlipidemia, Ivana Cárdenas syndrome, wheelchair bound remote history of tobacco use quit approximately 8 months ago. Patient was recently hospitalized for chest pain, stent to the LAD on 06/03. Patient gives history that she has had nausea and vomiting for the past 2 weeks and for the past 3-4 days is unable to keep any of her medications down. She is complaining of abdominal pain across her abdomen that is more severe on the right and posterior to the back. She has had her gallbladder out. She denies any fever or chills. No sick contacts. She has been on morphine and Zofran. She is still not able to keep any of her med ications down. She has been started on heparin drip. EKG was sinus tachycardia 110 bpm WBC 8.7, hemoglobin 12, platelet count 282. Sodium 134, potassium 3.1, chloride 97, CO2 32, BUN 4 and creatinine 0.72. Alkaline phosphatase 138 otherwise liver function tests are normal. Home cardiac medications: Norvasc 5 mg at bedtime, aspirin 81 mg daily, atorvastatin 40 mg at bedtime, Plavix 75 mg daily, spironolactone 50 mg daily Cardiac catheterization 06/03/2022 at [facility] and there was 50- 60% mid LAD lesion and she was then transferred to [facility], iFR and FFR were abnormal with 60-70% mid LAD stenosis status post PCI in the mid LAD. 07/07 Patient is seen today in follow-up. She continues to have nausea and vomiting unable to keep any pills down. Her last bowel movement was 6 days ago. Patient is very tender in the abdomen today. Her heart rate is controlled, running in the 90s, blood pressure 113/76. No repeat blood work today. She has been on heparin drip and we added a rectal aspirin yesterday. Physical examination: Gen: This is a obese 52-year-old female. She is resting in bed and appears to be comfortable. VS: reviewed HEENT: Head is atraumatic, normocephalic. Pupils equal, round. Sclerae is anicteric. NECK: Supple. No JVD. LUNGS: Clear to auscultation. No wheezes or rhonchi. No intercostal retractions. HEART: Regular rate and rhythm. No murmur. ABDOMEN: Soft. Extremely tender to touch EXTREMITIES: No pedal edema. No calf tenderness. NEUROLOGICAL: Patient is awake, alert and oriented x3. Assessment: Intractable nausea and vomiting Hypokalemia Coronary artery disease with recent stenting of the LAD 06/03 Hypertension Hyperlipidemia Ivana Cárdenas syndrome Plan: Continue patient on heparin drip and aspirin one rectally daily until patient is able to resume home cardiac medications No cardiac workup at this time Recommend imaging studies on the abdomen due to tenderness, no bowel movement for 6 days and continued nausea and vomiting. Further recommendations as patient progresses. Nurse practitioner note has been reviewed, I agree with documented findings and plan of care. Patient was seen and examined. Objective - Vital Signs Vital signs: Vital Signs Temp 98.0 F 07/07/22 01:00 Pulse 93 07/07/22 01:00 Resp 18 07/07/22 01:00 BP 112/72 07/07/22 01:00 Pulse Ox 98 07/07/22 01:00 FiO2 Intake & Output 07/06/22 07/07/22 07/07/22 18:59 06:59 18:59 Intake Total 181.489 16.21 Balance 181.489 16.21 Intake: Intake, IV Titration 181.489 16.21 Amount Heparin Sod,Pork in 0.45% 181.489 16.21 NaCl 25,000 unit In 0.45 % NaCl 1 250ml.bag @ 12 UNITS/KG/HR 8.709 mls/hr IV .Q24H [facility] Rx#: [id number] Other: Voiding Method Toilet # Voids 3 2 - Labs CBC & Chem 7: 07/06/22 07:01 07/06/22 07:01 Labs: Abnormal Lab Results - Last 24 Hours (Table) 07/07/22 Range/Units 05:25 APTT 42.6 H (22.0-30.0) sec
--- NOTE | 2022-07-07 18:07 | P.PN ---
Subjective Progress Note Date: 07/07/22 52-year-old patient of Dr. Corrales with first appointment scheduled for 07/10 with past medical history of history of hypertension, hyperlipidemia, Ivana Cárdenas syndrome, wheelchair bound remote history of tobacco use quit approximately 8 months ago. Patient was recently hospitalized for chest pain, stent to the LAD on 06/03. Patient gives history that she has had nausea and vomiting for the past 2 weeks and for the past 3-4 days is unable to keep any of her medications down. She is complaining of abdominal pain across her abdomen that is more severe on the right and posterior to the back. She has had her gallbladder out. She denies any fever or chills. No sick contacts. She has been on morphine and Zofran. She is still not able to keep any of her medications down. She has been started on heparin drip. EKG was sinus tachycardia 110 bpm WBC 8.7, hemoglobin 12, platelet count 282. Sodium 134, potassium 3.1, chloride 97, CO2 32, BUN 4 and creatinine 0.72. Alkaline phosphatase 138 otherwise liver function tests are normal. 07/07/2022 Patient is seen and evaluated resting; continues to have abdominal pain and nausea; reports improved abdominal pain since morning - Stat CT of the abdomen was completed which was unremarkable -- We will plan to consult general surgery for continued abdominal pain and nausea - Patient does have coronary artery disease with recent stenting of LAD on 06/03/2022; has not been able to take any oral medications including aspirin and Plavix; patient has been placed on IV heparin infusion and is getting aspirin rectally Objective - Vital Signs Vital signs: Vital Signs Temp 98.0 F 07/07/22 01:00 Pulse 93 07/07/22 01:00 Resp 18 07/07/22 01:00 BP 112/72 07/07/22 01:00 Pulse Ox 98 07/07/22 01:00 FiO2 Intake & Output 07/06/22 07/07/22 07/07/22 18:59 06:59 18:59 Intake Total 181.489 16.21 Balance 181.489 16.21 Intake: Intake, IV Titration 181.489 16.21 Amount Heparin Sod,Pork in 0.45% 181.489 16.21 NaCl 25,000 unit In 0.45 % NaCl 1 250ml.bag @ 12 UNITS/KG/HR 8.709 mls/hr IV .Q24H [facility] Rx#: [id number] Other: Voiding Method Toilet # Voids 3 2 - Exam PHYSICAL EXAMINATION: GENERAL: The patient is alert and oriented x3, not in any acute distress. Well developed, well nourished. HEENT: Pupils are round and equally reacting to light. EOMI. No scleral icterus. No conjunctival pallor. Normocephalic, atraumatic. No pharyngeal erythema. No thyromegaly. CARDIOVASCULAR: S1 and S2 present. No murmurs, rubs, or gallops. PULMONARY: Chest is clear to auscultation, no wheezing or crackles. ABDOMEN: Soft, nontender, nondistended, normoactive bowel sounds. No palpable organomegaly. MUSCULOSKELETAL: No joint swelling or deformity. EXTREMITIES: No cyanosis, clubbing, or pedal edema. NEUROLOGICAL: Gross neurological examination did not reveal any focal deficits. SKIN: No rashes. - Labs CBC & Chem 7: 07/06/22 07:01 07/06/22 07:01 Labs: Abnormal Lab Results - Last 24 Hours (Table) 07/07/22 Range/Units 05:25 APTT 42.6 H (22.0-30.0) sec Assessment and Plan Assessment: 1. Intractable nausea and vomiting - Patient intolerant of medications; currently using Zofran versus Phenergan; unable to take Reglan - Continue with IV fluids to maintain hydration - Patient is placed on a clear liquid diet 2. Critical hypokalemia; supplemented in ED; current potassium level of 3.0; patient unable to tolerate oral potassium supplement or IV; needs slow IV supplementation 3. Coronary artery disease with recent stenting of LAD on 06/03/2022 --Cardiac catheterization 06/03/2022 at [facility] and there was 50-60% mid LAD lesion and she was then transferred to [facility], iFR and FFR were abnormal with 60-70% mid LAD stenosis status post PCI in the mid LAD. -- Patient hasn't been able to take aspirin or Plavix - Cardiology is consulted and they're agreeable with continue with IV heparin infusion and recommending starting aspirin rectally until patient is able to tolerate medications orally 4. Hypertension; Norvasc 5 mg daily, Aldactone 51 g daily 5. Hyperlipidemia; Lipitor 40 mg by mouth daily at bedtime 6. Ivana Cárdenas syndrome DVT prophylaxis; SCDs/IV heparin CODE STATUS; full code
[2022-07-07] MEDS: amLODIPine 5 MG TAB PO SCH (20:55)
[2022-07-07] MEDS: THIAMINE 100 MG TAB PO SCH (20:55)
[2022-07-07] MEDS: ATORVASTATIN 40 MG TAB PO SCH (20:55)
[2022-07-08] MEDS: MORPHINE SULFATE 2 MG/ML SYRINGE IVP PRN ×5 (02:12→22:16)
[2022-07-08] MEDS: ONDANSETRON 4 MG/2 ML VIAL IVP PRN ×2 (02:12→15:48)
[2022-07-08] MEDS: SODIUM CHLORIDE 0.9% 1,000 ML IV SCH ×2 (06:23→15:31)
[2022-07-08] MEDS: METOPROLOL TARTRATE 5 MG/5 ML VIAL IVP SCH ×2 (09:34→16:35)
[2022-07-08] MEDS: LACOSAMIDE IV 100 MG in SODIUM CHLORIDE 0.9% 50 ML IVPB SCH ×2 (10:01→21:38)
--- NOTE | 2022-07-08 10:44 | P.GSCN ---
History of Present Illness Consult date: 07/08/22 History of present illness: CHIEF COMPLAINT: Nausea and vomiting HISTORY OF PRESENT ILLNESS: This is a 52-year-old female who presented to the hospital with complaints of nausea and vomiting for the last 2 weeks. She has been unable to keep any of her medications or food down. Patient reports she is able to take in some ice chips but that is about it. She had a recent heart catheterization with stent placement in 06/03/2022. Patient has been unable to take her Plavix and aspirin because of the nausea and vomiting. She is currently on IV heparin because she is unable to take oral medication. Patient reports that she has been having difficulty with swallowing for the past year. She initially noted it with solid foods and now it's progressed to liquids. She has had a history of hiatal hernia repair. She had an EGD in January 2021 which was normal. She's never required a dilation. Patient also complains of right lower quadrant pain and suprapubic pain that starts in her back. She is no evidence of kidney stones on the CAT scan CAT scan was unremarkable. She does report urinary symptoms. The urinalysis is negative as well. She has history of appendectomy. Patient does have evidence of hypokalemia. Patient reports her last bowel movement was about a week ago. PAST MEDICAL HISTORY: Ivana Cárdenas syndrome, Hyperlipidemia, hypertension, seizure, migraines, viral meningitis as a child, chronic back pain, coronary disease with cardiac cath and stent PAST SURGICAL HISTORY: Appendectomy, cholecystectomy, hysterectomy, , hiatal hernia repair and umbilical hernia repair MEDICATIONS: See below ALLERGIES: See below SOCIAL HISTORY: No illicit drug use. REVIEW OF SYSTEMS: CONSTITUTIONAL: Denies fever or chills. HEENT: Denies blurred vision, vision changes, or eye pain. Denies hemoptysis CARDIOVASCULAR: Denies chest pain or pressure. RESPIRATORY: No shortness of breath. GASTROINTESTINAL: See HPI for pertinent findings HEMATOLOGIC: Denies bleeding disorders. GENITOURINARY: Denies any blood in urine or increased urinary frequency. SKIN: Denies pruitis. Denies rash. PHYSICAL EXAM: VITAL SIGNS: Reviewed GENERAL: Well-developed in no acute distress. HEENT: No sclera icterus. Extraocular movements grossly intact. Moist buccal mucosa. Head is atraumatic, normocephalic. No nasal drainage. ABDOMEN: Soft. Nondistended. Tenderness to palpation right lower quadrant NEUROLOGIC: Alert and oriented. Cranial nerves II through XII grossly intact. LABORATORY DATA: WBC 7.38 hgb 12.4 platelets 264 Sodium is 136 potassium 3.2 creatinine 0.70 Labs from today pending IMAGING: Computed tomography scan of pelvis no bowel obstruction. No significant colonic fecal prominence or impaction. No significant new or acute findings. ASSESSMENT: 1. Intractable nausea and vomiting 2. Dysphagia 3. Right lower abdominal pain 4. Recent heart catheterization with stent placement for coronary artery disease 5. Hypokalemia PLAN: -Patient scheduled for EGD with Dr. Trejo -Continue to correct hypokalemia -Check magnesium level -Continue supportive care -Continue IV fluids -Continue antiemetics Physician Child Care Sitter note has been reviewed by physician. Signing provider agrees with the documented findings, assessment, and plan of care. Past Medical History Past Medical History: Hyperlipidemia, Hypertension, Seizure Disorder Additional Past Medical History / Comment(s): Migraines, viral meningitis x3 as a child, 1995, 2000, chronic back pain, nerve blocks 08/2016 and 12/2016. Last seizure 10/10/2020, "ABSENT SEIZURES. HX TACHYCARDIA, GBS/CIPD, PTSD. History of Any Multi-Drug Resistant Organisms: None Reported Past Surgical History: Appendectomy, Section, Cholecystectomy, Heart Catheterization With Stent, Hernia Repair, Hysterectomy, Orthopedic Surgery, Tonsillectomy, Tubal Ligation Additional Past Surgical History / Comment(s): Hiatal Hernia, umbilical hernia repair, left rotator cuff repair, bilateral knee scopes, pain clinic procedures-occipital nerve block. abd exploratory sx(endometreosis), 3 abd scopes 1981, 1989, 1991), lumbar puncture. EGD. nerve biopsy, salvalry gland biospy Past Anesthesia/Blood Transfusion Reactions: No Reported Reaction Additional Past Anesthesia/Blood Transfusion Reaction / Comm: Claustrophobic Date of Last Stent Placement:: 06/03/2022 Past Psychological History: Anxiety, Bipolar, Panic Disorder, PTSD Smoking Status: Former smoker Past Alcohol Use History: None Reported Past Drug Use History: None Reported - Past Family History Mother Family Medical History: Cancer, Dementia, Diabetes Mellitus, GERD/Reflux, Hyperlipidemia, Hypertension, Thyroid Disorder Additional Family Medical History / Comment(s): CABG Father History Unknown: Yes Family Medical History: No Reported History Medications and Allergies Home Medications Medication Instructions Recorded Confirmed Type amLODIPine [Norvasc] 5 mg PO HS 04/28/20 07/05/22 History Omeprazole [PriLOSEC] 20 mg PO BID 12/15/20 07/05/22 History Thiamine [Vitamin B-1] 100 mg PO HS 01/04/21 07/05/22 History Lacosamide [Vimpat] 100 mg PO BID 7 Days #14 tab 01/16/21 07/05/22 Rx Atorvastatin [Lipitor] 40 mg PO HS 07/20/21 07/05/22 History DULoxetine HCL [Cymbalta] 60 mg PO HS 07/20/21 07/05/22 History Atogepant [Qulipta] 60 mg PO HS 06/03/22 07/05/22 History Cyclobenzaprine [Flexeril] 10 mg PO TID PRN 06/03/22 07/05/22 History HYDROcodone/APAP 10-325MG [[place] 1 tab PO TID PRN 06/03/22 07/05/22 History 10-325] Aspirin 81 mg PO DAILY tab 06/04/22 07/05/22 Rx Clopidogrel [Plavix] 75 mg PO DAILY #90 tab 06/04/22 07/05/22 Rx Spironolactone [Aldactone] 50 mg PO DAILY 06/04/22 07/05/22 History Ondansetron Odt [Zofran Odt] 4 mg PO Q8HR PRN #9 tab 06/26/22 07/05/22 Rx Allergies Allergy/AdvReac Type Severity Reaction Status Date / Time dihydroergotamine Allergy Unknown Unknown Verified 07/05/22 07:16 [From Migranal] buprenorphine Allergy Rash/Hives Verified 07/05/22 07:16 gabapentin [From Neurontin] Allergy Itching/Swe Verified 07/05/22 07:16 lling latex Allergy Anaphylaxis Verified 07/05/22 07:16 naproxen [From Naprosyn] Allergy Anaphylaxis Verified 07/05/22 07:16 Penicillins Allergy Anaphylaxis Verified 07/05/22 07:16 prednisone Allergy Swelling Verified 07/05/22 07:16 quetiapine fumarate Allergy Itching, Verified 07/05/22 07:16 [From Seroquel] leg cramps rofecoxib [From Vioxx] Allergy Itching, Verified 07/05/22 07:16 leg cramps terfenadine [From Seldane] Allergy Rash/Hives Verified 07/05/22 07:16 tramadol Allergy Nausea & Verified 07/05/22 07:16 Vomiting/LEG CRAMPS/HEART FLUTTERS calcium carbonate [From DHEA] AdvReac Chest Pain Verified 07/05/22 07:16 calcium phosphate,dibasic AdvReac Chest Pain Verified 07/05/22 07:16 [From DHEA] clindamycin AdvReac muscle Verified 07/05/22 07:16 cramps clonidine AdvReac fast Verified 07/05/22 07:16 heartbeat, migraine dextromethorphan HBr AdvReac face/neck Verified 07/05/22 07:16 [From NyQuil] flushing diazepam [From Valium] AdvReac Nausea & Verified 07/05/22 07:16 Vomiting divalproex sodium AdvReac Nausea & Verified 07/05/22 07:16 [From Depakote] Vomiting doxylamine [From NyQuil] AdvReac face "beet Verified 07/05/22 07:16 red", elevated temp. ibuprofen [From Motrin] AdvReac abdominal Verified 07/05/22 07:16 & muscle cramps indomethacin [From Indocin] AdvReac Abdominal Verified 07/05/22 07:16 Pain,N/V ketorolac tromethamine AdvReac "built up Verified 07/05/22 07:16 [From Toradol] in system", had to be given something to reverse lorazepam [From Ativan] AdvReac Nausea & Verified 07/05/22 07:16 Vomiting memantine [From Namenda] AdvReac Itching Verified 07/05/22 07:16 metoclopramide HCl AdvReac muscle Verified 07/05/22 07:16 [From Reglan] cramps nortriptyline [From Pamelor] AdvReac Chest Pain Verified 07/05/22 07:16 prasterone (DHEA) [From DHEA] AdvReac Chest Pain Verified 07/05/22 07:16 prochlorperazine AdvReac leg Verified 07/05/22 07:16 [From Compazine] cramping propranolol AdvReac Chest Pain Verified 07/05/22 07:16 pseudoephedrine HCl AdvReac face "beet Verified 07/05/22 07:16 [From NyQuil] red", elevated temp. quetiapine [From Seroquel] AdvReac leg Verified 07/05/22 07:16 cramping sumatriptan [From Imitrex] AdvReac migrane Verified 07/05/22 07:16 sumatriptan succinate AdvReac migrane Verified 07/05/22 07:16 [From Imitrex] topiramate [From Topamax] AdvReac "built up Verified 07/05/22 07:16 in system", had to be given something to reverse trazodone AdvReac "built up Verified 07/05/22 07:16 in system", had to be given something to reverse zolpidem tartrate AdvReac "Became Verified 07/05/22 07:16 [From Ambien] violent with no memory" zonisamide [From Zonegran] AdvReac inability Verified 07/05/22 07:16 to eat artificial sweetener AdvReac SEVERE Uncoded 07/04/22 20:11 MIGRAINE HEADACHE prosyn AdvReac Itching Uncoded 07/04/22 20:11 Surgical - Exam Vital Signs Temp Pulse Resp BP Pulse Ox 98.1 F 134 H 18 117/84 100 07/04/22 20:05 07/04/22 20:05 07/04/22 20:05 07/04/22 20:05 07/04/22 20:05 Results - Labs 07/06/22 07:01 07/06/22 07:01 Abnormal Lab Results - Last 24 Hours (Table) 07/07/22 07/07/22 07/08/22 Range/Units 14:28 21:41 06:02 APTT 41.8 H 152.5 H* 61.9 H (22.0-30.0) sec
[2022-07-08 11:52] LABS: African American GFR (CKD) >90 (>60 ml/min/1.73 sqM); Anion Gap 3 mmol/L; Blood Urea Nitrogen <2 mg/dL (7-17); Calcium 8.2 mg/dL (8.4-10.2); Carbon Dioxide 29 mmol/L (22-30); Chloride 105 mmol/L (98-107); Glucose 96 mg/dL (74-99); Magnesium 1.5 mg/dL (1.6-2.3); Non-African American GFR(CKD) >90 (>60 ml/min/1.73 sqM); Potassium 3.9 mmol/L (3.5-5.1); Sodium 137 mmol/L (137-145)
--- NOTE | 2022-07-08 13:11 | P.PN ---
Subjective Progress Note Date: 07/08/22 History of present illness: This is a 52-year-old patient of Dr. Corrales with first appointment scheduled for 07/10 with past medical history of history of hypertension, hyperlipidemia, Ivana Cárdenas syndrome, wheelchair bound remote history of tobacco use quit approximately 8 months ago. Patient was recently hospitalized for chest pain, stent to the LAD on 06/03. Patient gives history that she has had nausea and vomiting for the past 2 weeks and for the past 3-4 days is unable to keep any of her medications down. She is complaining of abdominal pain across her abdomen that is more severe on the right and posterior to the back. She has had her gallbladder out. She denies any fever or chills. No sick contacts. She has been on morphine and Zofran. She is still not able to keep any of her med ications down. She has been started on heparin drip. EKG was sinus tachycardia 110 bpm WBC 8.7, hemoglobin 12, platelet count 282. Sodium 134, potassium 3.1, chloride 97, CO2 32, BUN 4 and creatinine 0.72. Alkaline phosphatase 138 otherwise liver function tests are normal. Home cardiac medications: Norvasc 5 mg at bedtime, aspirin 81 mg daily, atorvastatin 40 mg at bedtime, Plavix 75 mg daily, spironolactone 50 mg daily Cardiac catheterization 06/03/2022 at [facility] and there was 50- 60% mid LAD lesion and she was then transferred to [facility], iFR and FFR were abnormal with 60-70% mid LAD stenosis status post PCI in the mid LAD. 07/07 Patient is seen today in follow-up. She continues to have nausea and vomiting unable to keep any pills down. Her last bowel movement was 6 days ago. Patient is very tender in the abdomen today. Her heart rate is controlled, running in the 90s, blood pressure 113/76. No repeat blood work today. She has been on heparin drip and we added a rectal aspirin yesterday. 07/08 Patient is seen today in follow-up. She continues to have nausea and vomiting and, intractable. She unable to take any oral medications. She underwent a CAT scan that did not show any acute findings. General surgery has her scheduled for EGD today. Patient is continued on a heparin drip and rectal aspirin. Physical examination: Gen: This is a obese 52-year-old female. She is resting in bed and appears to be comfortable. VS: reviewed HEENT: Head is atraumatic, normocephalic. Pupils equal, round. Sclerae is anicteric. NECK: Supple. No JVD. LUNGS: Clear to auscultation. No wheezes or rhonchi. No intercostal retractions. HEART: Regular rate and rhythm. No murmur. ABDOMEN: Soft. Extremely tender to touch EXTREMITIES: No pedal edema. No calf tenderness. NEUROLOGICAL: Patient is awake, alert and oriented x3. Assessment: Intractable nausea and vomiting Hypokalemia Coronary artery disease with recent stenting of the LAD 06/03 Hypertension Hyperlipidemia Ivana Cárdenas syndrome Plan: Continue patient on heparin drip and aspirin one rectally daily until patient is able to resume home cardiac medications No cardiac workup at this time Further recommendations as patient progresses. Nurse practitioner note has been reviewed, I agree with documented findings and plan of care. Patient was seen and examined. Objective - Vital Signs Vital signs: Vital Signs Temp 98.2 F 07/08/22 07:00 Pulse 98 07/08/22 07:00 Resp 18 07/08/22 07:00 BP 131/84 07/08/22 07:00 Pulse Ox 97 07/08/22 07:00 FiO2 Intake & Output 07/07/22 07/08/22 07/08/22 18:59 06:59 18:59 Intake Total 436.253 271.127 Output Total 0 Balance 436.253 271.127 Intake: Intake, IV Titration 82.253 71.127 Amount Heparin Sod,Pork in 0.45% 82.253 71.127 NaCl 25,000 unit In 0.45 % NaCl 1 250ml.bag @ 12 UNITS/KG/HR 8.709 mls/hr IV .Q24H [facility] Rx#: [id number] Oral 354 200 Output: Emesis 0 Other: Voiding Method Toilet # Voids 4 2 - Labs CBC & Chem 7: 07/06/22 07:01 07/08/22 11:08 Labs: Abnormal Lab Results - Last 24 Hours (Table) 07/07/22 07/07/22 07/08/22 Range/Units 14:28 21:41 06:02 APTT 41.8 H 152.5 H* 61.9 H (22.0-30.0) sec BUN (7-17) mg/dL Calcium (8.4-10.2) mg/dL Magnesium (1.6-2.3) mg/dL 07/08/22 Range/Units 11:08 APTT (22.0-30.0) sec BUN <2 L (7-17) mg/dL Calcium 8.2 L (8.4-10.2) mg/dL Magnesium 1.5 L (1.6-2.3) mg/dL
[2022-07-08 13:31] VITALS: BMI 28.3
[2022-07-08] MEDS: ASPIRIN 300 MG SUPP RECTAL SCH (13:53)
[2022-07-08] MEDS: SPIRONOLACTONE 25 MG TAB PO SCH (13:54)
[2022-07-08] MEDS ORDERED: LIDOCAINE 2% INJ 20 MG/ML (2 ML VIAL) ONE (15:06)
[2022-07-08] MEDS ORDERED: PROPOFOL 10 MG/ML 20 ML VIAL IV ONE (15:06)
[2022-07-08] MEDS ORDERED: IV FLUID CONTINUATION 300 ML IV ONE (15:19)
--- NOTE | 2022-07-08 15:20 | P.OP ---
Date of Procedure: 07/08/22 Preoperative Diagnosis: Nausea, vomiting Postoperative Diagnosis: Antral gastritis Sliding hiatal hernia Procedure(s) Performed: EGD Anesthesia: MAC Surgeon: Dean Trejo Pathology: other (Antrum, esophagus) Condition: stable Disposition: PACU Description of Procedure: The patient's placed on the endoscopy table in the lateral position. She received IV sedation. The gastro-/oropharynx passed in the esophagus and stomach. Scope then placed through the pylorus. The first and second portion of the duodenum appeared normal. Scope summer back the antrum this was inflamed. A biopsies performed. The scope was then retroflexed and the patient had a sliding hiatal hernia. The GE junction was at 38 cm. The distal esophagus inflamed. The proximal esophagus appeared normal. Scope withdrawn for patient.
[2022-07-08] MEDS: HEPARIN SOD,PORK IN 0.45% NACL 25,000 UNIT in 0.45% NACL 1 250ML.BAG IV SCH ×2 (15:32→21:07)
[2022-07-08] MEDS: CLOPIDOGREL 75 MG TAB PO SCH (15:49)
[2022-07-08] MEDS: ASPIRIN 81 MG PO SCH (15:49)
[2022-07-08] MEDS: ATORVASTATIN 40 MG TAB PO SCH (21:10)
[2022-07-08] MEDS: amLODIPine 5 MG TAB PO SCH (21:10)
[2022-07-08] MEDS: THIAMINE 100 MG TAB PO SCH (21:10)
[2022-07-09] MEDS: METOPROLOL TARTRATE 5 MG/5 ML VIAL IVP SCH ×4 (00:38→17:20)
[2022-07-09] MEDS: SODIUM CHLORIDE 0.9% 1,000 ML IV SCH ×3 (00:42→21:43)
[2022-07-09] MEDS: MORPHINE SULFATE 2 MG/ML SYRINGE IVP PRN ×5 (02:06→20:36)
--- NOTE | 2022-07-09 02:29 | PN ---
PROGRESS NOTE DATE OF SERVICE: 07/08/2022 SUBJECTIVE: This is a 52-year-old woman who was admitted with intractable nausea, vomiting, also hypokalemia. The patient also has CAD, stenting most recently. No chest pain. No palpitations. No fever. OBJECTIVE: VITAL SIGNS: Pulse is 97, blood pressure 137/90, respirations 18. CHEST: Clear to auscultation. CARDIOVASCULAR: S1 and S2. ABDOMEN: Soft. Mild diffuse discomfort. LABORATORY DATA: Reviewed. ASSESSMENT: 1. Intractable nausea, vomiting, possible acute gastritis. 2. Hypokalemia. 3. History of coronary artery disease, stenting. 4. Hypertension. RECOMMENDATIONS: Recommend continue current medications. Continue symptomatic treatment. Repeat labs in the morning. Closely follow with multiple consultants. Advance diet. Continue with symptomatic treatment. Further recommendations to follow. MMODL / IJN: [id number] / MTDD
[2022-07-09] MEDS: ONDANSETRON 4 MG/2 ML VIAL IVP PRN ×2 (06:49→15:16)
[2022-07-09] MEDS: METOPROLOL SUCCINATE (ER) 50 MG TAB.ER.24H PO SCH ×2 (08:28→11:07)
[2022-07-09] MEDS: SPIRONOLACTONE 25 MG TAB PO SCH ×2 (08:28→09:20)
[2022-07-09] MEDS: CLOPIDOGREL 75 MG TAB PO SCH ×2 (08:28→09:19)
[2022-07-09] MEDS: ASPIRIN 300 MG SUPP RECTAL SCH (08:29)
[2022-07-09] MEDS: ASPIRIN 81 MG PO SCH ×2 (08:29→09:18)
[2022-07-09 09:04] LABS: Basophils # (A) 0.03 X 10*3/uL (0.00-0.10); Basophils % (A) 0.5 %; Eosinophils # (A) 0.06 X 10*3/uL (0.04-0.35); Eosinophils % (A) 0.9 %; HCT 33.6 % (37.2-46.3); Immature Grans, Automated 0.2 %; Lymphocytes # (A) 1.51 X 10*3/uL (0.90-5.00); Lymphocytes % (A) 23.5 %; MCH 31.8 pg (27.0-32.0); MCHC 32.7 g/dL (32.0-37.0); MCV 97.1 fL (80.0-97.0); Mean Platelet Volume 10.7 fL (9.5-12.2); Monocytes % (A) 10.9 %; NRBC Per 100 WBC 0 /100 WBCS (0.0-0.0); Neutrophils # (A) 4.11 X 10*3/uL (1.80-7.70); Platelet Count 262 X 10*3/uL (140-440); RBC 3.46 X 10*6/uL (4.10-5.20); RDW 15.7 % (11.5-14.5); WBC 6.42 X 10*3/uL (4.50-10.00)
[2022-07-09 09:27] LABS: African American GFR (CKD) 117.1 (60.0-200.0); Anion Gap 9.8 mmol/L (10.00-18.00); BUN/Creat Ratio 3.43 Ratio (12.00-20.00); Blood Urea Nitrogen 2.4 mg/dL (9.0-27.0); Calcium 8.4 mg/dL (8.7-10.3); Carbon Dioxide 26.2 mmol/L (20.0-27.5); Potassium 3.9 mmol/L (3.5-5.5)
[2022-07-09] MEDS: LACOSAMIDE IV 100 MG in SODIUM CHLORIDE 0.9% 50 ML IVPB SCH ×2 (09:42→21:43)
[2022-07-09] MEDS ORDERED: SCOPOLAMINE 1 MG/72 HR PATCH TRANSDERM STA (10:29)
--- NOTE | 2022-07-09 10:29 | P.PN ---
Subjective Progress Note Date: 07/09/22 History of present illness: This is a 52-year-old patient of Dr. Corrales with first appointment scheduled for 07/10 with past medical history of history of hypertension, hyperlipidemia, Ivana Cárdenas syndrome, wheelchair bound remote history of tobacco use quit approximately 8 months ago. Patient was recently hospitalized for chest pain, stent to the LAD on 06/03. Patient gives history that she has had nausea and vomiting for the past 2 weeks and for the past 3-4 days is unable to keep any of her medications down. She is complaining of abdominal pain across her abdomen that is more severe on the right and posterior to the back. She has had her gallbladder out. She denies any fever or chills. No sick contacts. She has been on morphine and Zofran. She is still not able to keep any of her med ications down. She has been started on heparin drip. EKG was sinus tachycardia 110 bpm WBC 8.7, hemoglobin 12, platelet count 282. Sodium 134, potassium 3.1, chloride 97, CO2 32, BUN 4 and creatinine 0.72. Alkaline phosphatase 138 otherwise liver function tests are normal. Home cardiac medications: Norvasc 5 mg at bedtime, aspirin 81 mg daily, atorvastatin 40 mg at bedtime, Plavix 75 mg daily, spironolactone 50 mg daily Cardiac catheterization 06/03/2022 at [facility] and there was 50- 60% mid LAD lesion and she was then transferred to [facility], iFR and FFR were abnormal with 60-70% mid LAD stenosis status post PCI in the mid LAD. 07/07 Patient is seen today in follow-up. She continues to have nausea and vomiting unable to keep any pills down. Her last bowel movement was 6 days ago. Patient is very tender in the abdomen today. Her heart rate is controlled, running in the 90s, blood pressure 113/76. No repeat blood work today. She has been on heparin drip and we added a rectal aspirin yesterday. 07/08 Patient is seen today in follow-up. She continues to have nausea and vomiting and, intractable. She unable to take any oral medications. She underwent a CAT scan that did not show any acute findings. General surgery has her scheduled for EGD today. Patient is continued on a heparin drip and rectal aspirin. 07/09 Patient underwent EGD yesterday with Dr. Trejo which revealed hiatal hernia and gastritis. Patient attempted to take aspirin and Plavix with small amount applesauce but vomited this immediately. Physical examination: Gen: This is a obese 52-year-old female. She is resting in bed and appears to be comfortable. VS: reviewed HEENT: Head is atraumatic, normocephalic. Pupils equal, round. Sclerae is anicteric. NECK: Supple. No JVD. LUNGS: Clear to auscultation. No wheezes or rhonchi. No intercostal retractions. HEART: Regular rate and rhythm. No murmur. ABDOMEN: Soft. Extremely tender to touch EXTREMITIES: No pedal edema. No calf tenderness. NEUROLOGICAL: Patient is awake, alert and oriented x3. Assessment: Intractable nausea and vomiting Hypokalemia Coronary artery disease with recent stenting of the LAD 06/03 Hypertension Hyperlipidemia Ivana Cárdenas syndrome Plan: Continue patient on heparin drip and aspirin one rectally daily until patient is able to resume home cardiac medications Most important medications for patient to take would be beta jina, aspirin and Plavix as well as atorvastatin. No cardiac workup at this time Further recommendations as patient progresses. Nurse practitioner note has been reviewed, I agree with documented findings and plan of care. Patient was seen and examined. Objective - Vital Signs Vital signs: Vital Signs Temp 98.2 F 07/09/22 07:10 Pulse 92 07/09/22 07:10 Resp 16 07/09/22 07:10 BP 134/88 07/09/22 07:10 Pulse Ox 96 07/09/22 07:10 FiO2 Intake & Output 07/08/22 07/09/22 07/09/22 18:59 06:59 18:59 Intake Total 1146.62 444.572 Balance 1146.62 444.572 Weight 72.575 kg Intake: IV 200 Intake, IV Titration 946.62 44.572 Amount Heparin Sod,Pork in 0.45% 96.62 44.572 NaCl 25,000 unit In 0.45 % NaCl 1 250ml.bag @ 12 UNITS/KG/HR 8.709 mls/hr IV .Q24H [facility] Rx#: [id number] Lacosamide IV 100 mg In 50 Sodium Chloride 0.9% 50 ml @ 100 mls/hr IVPB BID [facility] Rx#:[id number] Sodium Chloride 0.9% 1, 800 000 ml @ 100 mls/hr IV . Q10H [facility] Rx#:[id number] Oral 400 Other: Voiding Method Toilet - Labs CBC & Chem 7: 07/09/22 04:10 07/09/22 04:10 Labs: Abnormal Lab Results - Last 24 Hours (Table) 07/08/22 07/09/22 Range/Units 11:08 04:10 APTT 50.1 H (22.0-30.0) sec BUN <2 L (7-17) mg/dL Calcium 8.2 L (8.4-10.2) mg/dL Magnesium 1.5 L (1.6-2.3) mg/dL
--- NOTE | 2022-07-09 11:25 | P.PN ---
Subjective Progress Note Date: 07/09/22 CHIEF COMPLAINT: Nausea and vomiting HISTORY OF PRESENT ILLNESS: Patient is status post EGD that showed a sliding hiatal hernia and gastritis. Patient had vomiting after taking pills with applesauce this morning. Patient asked if she could go home. Afebrile. Mildly tachycardic last night. Heart rate improved. WBC is 6.4 to Hgb is 11 plt 262 creatinine 0.7 PHYSICAL EXAM: VITAL SIGNS: Reviewed. GENERAL: Well-developed in no acute distress. HEENT: No sclera icterus. Extraocular movements grossly intact. Moist buccal mucosa. Head is atraumatic, normocephalic. ABDOMEN: Soft. Nondistended. Nontender. NEUROLOGIC: Alert and oriented. Cranial nerves II through XII grossly intact. ASSESSMENT: 1. Intractable nausea and vomiting 2. Status post EGD showing sliding hiatal hernia and gastritis 3. Hypomagnesemia PLAN: -Replace magnesium -Advance diet to full liquids -Start Protonix due to gastritis -Patient can be discharged home today from surgical standpoint, if she tolerates full liquids Physician Cutter Machine Tender note has been reviewed by physician. Signing provider agrees with the documented findings, assessment, and plan of care. Objective - Vital Signs Vital signs: Vital Signs Temp 98.2 F 07/09/22 07:10 Pulse 92 07/09/22 07:10 Resp 16 07/09/22 07:10 BP 134/88 07/09/22 07:10 Pulse Ox 96 07/09/22 07:10 FiO2 Intake & Output 07/08/22 07/09/22 07/09/22 18:59 06:59 18:59 Intake Total 1146.62 444.572 Balance 1146.62 444.572 Weight 72.575 kg Intake: IV 200 Intake, IV Titration 946.62 44.572 Amount Heparin Sod,Pork in 0.45% 96.62 44.572 NaCl 25,000 unit In 0.45 % NaCl 1 250ml.bag @ 12 UNITS/KG/HR 8.709 mls/hr IV .Q24H [facility] Rx#: [id number] Lacosamide IV 100 mg In 50 Sodium Chloride 0.9% 50 ml @ 100 mls/hr IVPB BID [facility] Rx#:[id number] Sodium Chloride 0.9% 1, 800 000 ml @ 100 mls/hr IV . Q10H [facility] Rx#:[id number] Oral 400 Other: Voiding Method Toilet - Labs CBC & Chem 7: 07/09/22 04:10 07/09/22 04:10 Labs: Abnormal Lab Results - Last 24 Hours (Table) 07/08/22 07/09/22 07/09/22 Range/Units 11:08 04:10 04:10 RBC 3.46 L (4.10-5.20) X 10*6/uL Hgb 11.0 L (12.0-15.0) g/dL Hct 33.6 L (37.2-46.3) % MCV 97.1 H (80.0-97.0) fL RDW 15.7 H (11.5-14.5) % APTT 50.1 H (22.0-30.0) sec Anion Gap (10.00-18.00) mmol/L BUN <2 L (7-17) mg/dL BUN/Creatinine Ratio (12.00-20.00) Ratio Calcium 8.2 L (8.4-10.2) mg/dL Magnesium 1.5 L (1.6-2.3) mg/dL 07/09/22 Range/Units 04:10 RBC (4.10-5.20) X 10*6/uL Hgb (12.0-15.0) g/dL Hct (37.2-46.3) % MCV (80.0-97.0) fL RDW (11.5-14.5) % APTT (22.0-30.0) sec Anion Gap 9.80 L (10.00-18.00) mmol/L BUN 2.4 L (7-17) mg/dL BUN/Creatinine Ratio 3.43 L (12.00-20.00) Ratio Calcium 8.4 L (8.4-10.2) mg/dL Magnesium (1.6-2.3) mg/dL
[2022-07-09] MEDS: PANTOPRAZOLE 40 MG/10 ML VIAL IVP SCH (12:42)
[2022-07-09] MEDS: MAGNESIUM SULFATE-D5W PMX 1 GM in DEXTROSE/WATER 1 100ML.BAG IVPB SCH ×2 (12:42→14:09)
[2022-07-09] MEDS: THIAMINE 100 MG TAB PO SCH (20:35)
[2022-07-09] MEDS: ATORVASTATIN 40 MG TAB PO SCH (20:35)
[2022-07-09] MEDS: HEPARIN SOD,PORK IN 0.45% NACL 25,000 UNIT in 0.45% NACL 1 250ML.BAG IV SCH (21:42)
[2022-07-10] MEDS: METOPROLOL TARTRATE 5 MG/5 ML VIAL IVP SCH ×2 (00:59→12:17)
[2022-07-10] MEDS: MORPHINE SULFATE 2 MG/ML SYRINGE IVP PRN ×5 (01:02→21:17)
--- NOTE | 2022-07-10 04:20 | P.PN ---
Subjective Progress Note Date: 07/09/22 This is a 52-year-old female who was recently admitted with abdominal pain along with intractable nausea and vomiting has been unable to tolerate oral intake and is being closely monitored. Patient does take cardiac meds with an extensive cardiac history and has been unable to tolerate. Patient being followed by general surgery as well underwent EGD which showed some inflammation and gastritis and is being started on advanced diet including full liquids for surgery recommendations. Recommend to continue with antinausea medications and will follow-up in a.m. with probable discharge. Review of systems: Constitutional: No reports of fatigue, fever, or chills Cardiovascular: No reports of chest pain or palpitations Respiratory: No reports of shortness of breath or cough GI: reports of nausea, with reports of vomiting : No reports of dysuria or retention Neurovascular: no reports of generalized weakness All medications have been reviewed PHYSICAL EXAMINATION: GENERAL: The patient is alert and oriented x4, Well developed, well nourished. Ill-appearing, appears older than stated age HEENT: Pupils are round and equally reacting to light. EOMI. no scleral icterus. No conjunctival pallor. Normocephalic, atraumatic. No pharyngeal erythema. No thyromegaly. CARDIOVASCULAR: S1 and S2 muffled PULMONARY: diminished breath sounds bilaterally with no wheezing or rhonchi noted. ABDOMEN: soft. Nontender on exam. non-distended, normoactive bowel sounds. No palpable organomegaly. MUSCULOSKELETAL: No joint swelling or deformity. EXTREMITIES: No cyanosis, clubbing, or pedal edema. NEUROLOGICAL: Gross neurological examination did not reveal any focal deficits. SKIN: No rashes. Assessment: Intractable nausea and vomiting, possibly secondary to acute gastritis as noted on EGD Hypokalemia, improved History of coronary artery disease with stenting hypertension GI prophylaxis DVT prophylaxis Full code Plan: Recommend to continue with current medications and management with general surgery following. Patient underwent EGD showing some inflammation and gastritis has been started on full liquid diet. Encouraged small frequent meals and will make recommend scheduled Recommend crushing medications that are able to be crushed as patient is able to tolerate more Will monitor overnight for tolerance to diet with probable discharge in 24 hours The impression and plan of care has been dictated by Wandy Turcios, nurse practitioner as directed. Dr. Steve MD I have performed a history and examination and MDM of this patient, discussed the same with the dictator, and agree with the dictator's assessment and plan as written ,documented as a scribe. Based on total visit time, I have performed more than 50% of the visit. Any additional findings or plans will be noted. Objective - Vital Signs Vital signs: Vital Signs Temp 98.2 F 07/09/22 07:10 Pulse 92 07/09/22 07:10 Resp 16 07/09/22 07:10 BP 134/88 07/09/22 07:10 Pulse Ox 96 07/09/22 07:10 FiO2 Intake & Output 07/08/22 07/09/22 07/09/22 18:59 06:59 18:59 Intake Total 1146.62 444.572 Balance 1146.62 444.572 Weight 72.575 kg Intake: IV 200 Intake, IV Titration 946.62 44.572 Amount Heparin Sod,Pork in 0.45% 96.62 44.572 NaCl 25,000 unit In 0.45 % NaCl 1 250ml.bag @ 12 UNITS/KG/HR 8.709 mls/hr IV .Q24H [facility] Rx#: [id number] Lacosamide IV 100 mg In 50 Sodium Chloride 0.9% 50 ml @ 100 mls/hr IVPB BID [facility] Rx#:[id number] Sodium Chloride 0.9% 1, 800 000 ml @ 100 mls/hr IV . Q10H [facility] Rx#:[id number] Oral 400 Other: Voiding Method Toilet - Labs CBC & Chem 7: 07/09/22 04:10 07/09/22 04:10 Labs: Abnormal Lab Results - Last 24 Hours (Table) 07/09/22 07/09/22 07/09/22 Range/Units 04:10 04:10 04:10 RBC 3.46 L (4.10-5.20) X 10*6/uL Hgb 11.0 L (12.0-15.0) g/dL Hct 33.6 L (37.2-46.3) % MCV 97.1 H (80.0-97.0) fL RDW 15.7 H (11.5-14.5) % APTT 50.1 H (22.0-30.0) sec Anion Gap 9.80 L (10.00-18.00) mmol/L BUN 2.4 L (9.0-27.0) mg/dL BUN/Creatinine Ratio 3.43 L (12.00-20.00) Ratio Calcium 8.4 L (8.7-10.3) mg/dL
[2022-07-10] MEDS: METOCLOPRAMIDE 5 MG TAB PO SCH ×3 (06:03→17:10)
[2022-07-10] MEDS: SPIRONOLACTONE 25 MG TAB PO SCH (08:03)
[2022-07-10] MEDS: ASPIRIN 81 MG PO SCH (08:03)
[2022-07-10] MEDS: CLOPIDOGREL 75 MG TAB PO SCH (08:04)
[2022-07-10] MEDS: PANTOPRAZOLE 40 MG/10 ML VIAL IVP SCH (08:04)
[2022-07-10] MEDS: LACOSAMIDE IV 100 MG in SODIUM CHLORIDE 0.9% 50 ML IVPB SCH ×2 (09:26→21:19)
[2022-07-10] MEDS: METOPROLOL SUCCINATE (ER) 25 MG TAB.ER.24H PO SCH (09:26)
[2022-07-10] MEDS: HYDROcodone/APAP 10-325MG 1 EACH TAB PO PRN ×2 (09:26→18:02)
--- NOTE | 2022-07-10 09:52 | P.PN ---
Subjective Progress Note Date: 07/10/22 History of present illness: This is a 52-year-old patient of Dr. Corrales with first appointment scheduled for 07/10 with past medical history of history of hypertension, hyperlipidemia, Ivana Cárdenas syndrome, wheelchair bound remote history of tobacco use quit approximately 8 months ago. Patient was recently hospitalized for chest pain, stent to the LAD on 06/03. Patient gives history that she has had nausea and vomiting for the past 2 weeks and for the past 3-4 days is unable to keep any of her medications down. She is complaining of abdominal pain across her abdomen that is more severe on the right and posterior to the back. She has had her gallbladder out. She denies any fever or chills. No sick contacts. She has been on morphine and Zofran. She is still not able to keep any of her med ications down. She has been started on heparin drip. EKG was sinus tachycardia 110 bpm WBC 8.7, hemoglobin 12, platelet count 282. Sodium 134, potassium 3.1, chloride 97, CO2 32, BUN 4 and creatinine 0.72. Alkaline phosphatase 138 otherwise liver function tests are normal. Home cardiac medications: Norvasc 5 mg at bedtime, aspirin 81 mg daily, atorvastatin 40 mg at bedtime, Plavix 75 mg daily, spironolactone 50 mg daily Cardiac catheterization 06/03/2022 at [facility] and there was 50- 60% mid LAD lesion and she was then transferred to [facility], iFR and FFR were abnormal with 60-70% mid LAD stenosis status post PCI in the mid LAD. 07/07 Patient is seen today in follow-up. She continues to have nausea and vomiting unable to keep any pills down. Her last bowel movement was 6 days ago. Patient is very tender in the abdomen today. Her heart rate is controlled, running in the 90s, blood pressure 113/76. No repeat blood work today. She has been on heparin drip and we added a rectal aspirin yesterday. 07/08 Patient is seen today in follow-up. She continues to have nausea and vomiting and, intractable. She unable to take any oral medications. She underwent a CAT scan that did not show any acute findings. General surgery has her scheduled for EGD today. Patient is continued on a heparin drip and rectal aspirin. 07/09 Patient underwent EGD yesterday with Dr. Trejo which revealed hiatal hernia and gastritis. Patient attempted to take aspirin and Plavix with small amount applesauce but vomited this immediately. 07/10 Yesterday, we added scopolamine patch for the patient. Today she is able to keep her medications down will be started on metoprolol as well as her other home cardiac medications. IV metoprolol and aspirin suppository will be discontinued. Heart rate 87, blood pressure 113/86. Physical examination: Gen: This is a obese 52-year-old female. She is resting in bed and appears to be comfortable. VS: reviewed HEENT: Head is atraumatic, normocephalic. Pupils equal, round. Sclerae is anicteric. NECK: Supple. No JVD. LUNGS: Clear to auscultation. No wheezes or rhonchi. No intercostal retractions. HEART: Regular rate and rhythm. No murmur. ABDOMEN: Soft. Extremely tender to touch EXTREMITIES: No pedal edema. No calf tenderness. NEUROLOGICAL: Patient is awake, alert and oriented x3. Assessment: Intractable nausea and vomiting Hypokalemia Coronary artery disease with recent stenting of the LAD 06/03 Hypertension Hyperlipidemia Ivana Cárdenas syndrome Plan: Continue patient's current cardiac medications Patient is cleared for discharge home and may follow-up in the office with Dr. Corrales and 2 weeks. Nurse practitioner note has been reviewed, I agree with documented findings and plan of care. Patient was seen and examined. 07/10 Objective - Vital Signs Vital signs: Vital Signs Temp 98.0 F 07/10/22 08:11 Pulse 103 H 07/10/22 08:11 Resp 18 07/10/22 08:11 BP 113/76 07/10/22 08:11 Pulse Ox 98 07/10/22 08:11 FiO2 Intake & Output 07/09/22 07/10/22 07/10/22 18:59 06:59 18:59 Intake Total 240 696.249 0 Balance 240 696.249 0 Intake: Intake, IV Titration 196.249 Amount Heparin Sod,Pork in 0.45% 196.249 NaCl 25,000 unit In 0.45 % NaCl 1 250ml.bag @ 12 UNITS/KG/HR 8.709 mls/hr IV .Q24H [facility] Rx#: [id number] Oral 240 500 0 Other: Voiding Method Toilet # Voids 1 # Bowel Movements 1 - Labs CBC & Chem 7: 07/09/22 04:10 07/09/22 04:10 Labs: Abnormal Lab Results - Last 24 Hours (Table) 07/09/22 07/10/22 Range/Units 04:10 06:12 APTT 57.6 H (22.0-30.0) sec Anion Gap 9.80 L (10.00-18.00) mmol/L BUN 2.4 L (9.0-27.0) mg/dL BUN/Creatinine Ratio 3.43 L (12.00-20.00) Ratio Calcium 8.4 L (8.7-10.3) mg/dL
[2022-07-10] MEDS: IOPAMIDOL CONTRAST (ORAL USE) VIAL PO PRN ×2 (11:52→12:55)
[2022-07-10] MEDS: SODIUM CHLORIDE 0.9% 1,000 ML IV SCH ×2 (12:55→21:19)
--- NOTE | 2022-07-10 14:14 | CT ---
EXAMINATION TYPE: CT abdomen pelvis wo con DATE OF EXAM: 07/10/2022 COMPARISON: 07/07/2022 INDICATION: Lower abd pain DLP: 927 mGycm, Automated exposure control for dose reduction was used. CONTRAST: 0 mL of Isovue 300. Study performed with Oral Contrast TECHNIQUE: Axial images were obtained from above the diaphragm to the pubic rami in the axial plane a t 5 mm thick sections. Reconstructed images are reviewed on the computer in the coronal plane. FINDINGS: Limited CT sections are obtained the lung bases. The lung bases are clear. CT ABDOMEN: Liver: There is some hypodensity adjacent to the ligamentum teres within the bilateral right lobe yann er, example image series 3 image 19 this was present previously. Spleen: Normal Pancreas: Atrophic Adrenal glands: The adrenal glands are normal. Gallbladder: Surgically absent Kidneys: No masses are evident. No hydronephrosis is present. No cysts are present. Delayed images were obtained through the kidneys, which remain unremarkable. Aorta: Vascular calcification is within the aorta. Inferior vena cava: Normal. CT PELVIS: Surgical changes appear to be at the gastroesophageal junction, possibly some fundoplicati on Loops of bowel within the abdomen and pelvis are normal. There are loops of bowel which are incom pletely distended or lack oral contrast limiting their evaluation. Appendix: Not visualized. No suspicious dilated tubular structure or inflammatory changes evident. Urinary bladder: Decompressed Limited evaluation. Genitourinary structures: Uterus and ovaries are not identified. Osseous structures: No suspicious lytic or sclerotic lesions. Some degenerative disc changes present in the mid lumbar spine IMPRESSIONS: 1. Stable appearance of hypodensity within the right lobe liver adjacent to the ligamentum teres mos t recent comparison. This however appears to been interval change from April 2022. Consider follow- up with contrast MRI.
--- NOTE | 2022-07-10 15:20 | P.PN ---
Subjective Progress Note Date: 07/10/22 CHIEF COMPLAINT: Nausea and vomiting HISTORY OF PRESENT ILLNESS: Patient is status post EGD that showed a sliding hiatal hernia and gastritis. Patient tolerating Crackers and her oral medications. Patient did have 2 episodes of diarrhea yesterday. This seems to have resolved. She denies any nausea or vomiting. She does complain of right lower quadrant pain. Has a history of appendectomy. She's had a history of multiple abdominal surgeries. She is concerned for possible adhesions. She does describe the pain as a pulling sensation. Afebrile. No new labs Patient seen and examined with Dr. Terjo PHYSICAL EXAM: VITAL SIGNS: Reviewed. GENERAL: Well-developed in no acute distress. HEENT: No sclera icterus. Extraocular movements grossly intact. Moist buccal mucosa. Head is atraumatic, normocephalic. ABDOMEN: Soft. Nondistended. Right lower quadrant pain with palpation NEUROLOGIC: Alert and oriented. Cranial nerves II through XII grossly intact. ASSESSMENT: 1. Intractable nausea and vomiting improved 2. Right lower quadrant abdominal pain possibly due to adhesions 3. Status post EGD showing sliding hiatal hernia and gastritis 4. Hypomagnesemia status post supplement PLAN: -Computed tomography scan abdomen and pelvis with oral contrast ordered for further evaluation of abdominal pain. There is no acute findings. There is stable appearance of hypodensity within the right lobe of liver adjacent to the ligamentum teres most recent comparison. Results reviewed Dr. Trejo. Patient can be discharged from surgical standpoint with follow-up in office in one week Physician [employer] note has been reviewed by physician. Signing provider agrees with the documented findings, assessment, and plan of care. Objective - Vital Signs Vital signs: Vital Signs Temp 97.8 F 07/10/22 14:57 Pulse 98 07/10/22 14:57 Resp 16 07/10/22 14:57 BP 131/90 07/10/22 14:57 Pulse Ox 98 07/10/22 14:57 FiO2 Intake & Output 07/09/22 07/10/22 07/10/22 18:59 06:59 18:59 Intake Total 240 696.249 0 Balance 240 696.249 0 Weight 72.575 kg Intake: Intake, IV Titration 196.249 Amount Heparin Sod,Pork in 0.45% 196.249 NaCl 25,000 unit In 0.45 % NaCl 1 250ml.bag @ 12 UNITS/KG/HR 8.709 mls/hr IV .Q24H [facility] Rx#: [id number] Oral 240 500 0 Other: Voiding Method Toilet # Voids 1 # Bowel Movements 1 - Labs CBC & Chem 7: 07/09/22 04:10 07/09/22 04:10 Labs: Abnormal Lab Results - Last 24 Hours (Table) 07/10/22 Range/Units 06:12 APTT 57.6 H (22.0-30.0) sec
--- NOTE | 2022-07-10 16:01 | P.PN ---
Subjective Progress Note Date: 07/10/22 This is a 52-year-old female who was recently admitted with abdominal pain along with intractable nausea and vomiting has been unable to tolerate oral intake and is being closely monitored. Patient does take cardiac meds with an extensive cardiac history and has been unable to tolerate. Patient being followed by general surgery as well underwent EGD which showed some inflammation and gastritis and is being started on advanced diet including full liquids for surgery recommendations. Recommend to continue with antinausea medications and will follow-up in a.m. with probable discharge. 07/10/2022 Patient is seen and evaluated in follow-up today reports she is tolerating some oral intake although not much and does not have much of an appetite and does not prefer the food here. Patient being followed by general surgery with concerns of continued abdominal discomfort ordered CT abdomen which is currently pending. Patient on full liquids and would recommend continuing with this for the next few days and slowly advance as tolerated. Patient is currently afebrile denies chest pain or shortness of breath. No reports of vomiting today but does have occasional nausea. Patient has been refusing Reglan. Patient with concerns of going home and not tolerating oral and not being able take her medication. Will discuss further with surgery about discharge planning. Review of systems: Constitutional: No reports of fatigue, fever, or chills Cardiovascular: No reports of chest pain or palpitations Respiratory: No reports of shortness of breath or cough GI: reports of nausea, no reports of vomiting today : No reports of dysuria or retention Neurovascular: no reports of generalized weakness All medications have been reviewed Active Medications Hydrocodone Bitart/Acetaminophen (Hydrocodone/Apap 10-325mg 1 Each Tab) 1 each PO TID PRN PRN Reason: Pain Last Admin: 07/10/22 09:26 Dose: 1 each Aspirin (Aspirin 81 Mg) 81 mg PO DAILY [facility] Last Admin: 07/10/22 08:03 Dose: 81 mg Atorvastatin Calcium (Atorvastatin 40 Mg Tab) 40 mg PO HS [facility] Last Admin: 07/09/22 20:35 Dose: Not Given Clopidogrel Bisulfate (Clopidogrel 75 Mg Tab) 75 mg PO DAILY [facility] Last Admin: 07/10/22 08:04 Dose: 75 mg Heparin Sodium (Porcine) (Heparin Sodium 1,000 Un/Ml (10ml Vl)) 0 unit IV PER PROTOCOL PRN; Protocol PRN Reason: Low PTT Last Admin: 07/07/22 15:32 Dose: 1,800 unit Sodium Chloride (Saline 0.9%) 1,000 mls @ 100 mls/hr IV .Q10H [facility] Last Admin: 07/10/22 12:55 Dose: 100 mls/hr Lacosamide 100 mg/ Sodium (Chloride) 60 mls @ 100 mls/hr IVPB BID [facility] Last Admin: 07/10/22 09:26 Dose: 100 mls/hr Metoclopramide HCl (Metoclopramide 5 Mg/Ml 2 Ml Vial) 10 mg IM Q6HR PRN PRN Reason: Nausea And Vomiting Metoclopramide HCl (Metoclopramide 5 Mg Tab) 5 mg PO AC-TID [facility] Last Admin: 07/10/22 14:34 Dose: Not Given Metoprolol Succinate (Metoprolol Succinate (Er) 25 Mg Tab.Er.24h) 25 mg PO DAILY [facility] Last Admin: 07/10/22 09:26 Dose: 25 mg Morphine Sulfate (Morphine Sulfate 2 Mg/Ml Syringe) 2 mg IVP Q4HR PRN PRN Reason: Pain/Discomfort Last Admin: 07/10/22 14:41 Dose: 2 mg Naloxone HCl (Naloxone 0.4 Mg/Ml 1 Ml Vial) 0.2 mg IV Q2M PRN PRN Reason: Opioid Reversal Ondansetron HCl (Ondansetron 4 Mg/2 Ml Vial) 4 mg IVP Q8HR PRN PRN Reason: Nausea And Vomiting Last Admin: 07/09/22 15:16 Dose: 4 mg Pantoprazole Sodium (Pantoprazole 40 Mg/10 Ml Vial) 40 mg IVP DAILY [facility] Last Admin: 07/10/22 08:04 Dose: 40 mg Spironolactone (Spironolactone 25 Mg Tab) 50 mg PO DAILY [facility] Last Admin: 07/10/22 08:03 Dose: 50 mg Thiamine HCl (Thiamine 100 Mg Tab) 100 mg PO HS [facility] Last Admin: 07/09/22 20:35 Dose: Not Given PHYSICAL EXAMINATION: GENERAL: The patient is alert and oriented x4, Well developed, well nourished. Ill-appearing, appears older than stated age HEENT: Pupils are round and equally reacting to light. EOMI. no scleral icterus. No conjunctival pallor. Normocephalic, atraumatic. No pharyngeal erythema. No thyromegaly. CARDIOVASCULAR: S1 and S2 muffled PULMONARY: diminished breath sounds bilaterally with no wheezing or rhonchi noted. ABDOMEN: soft. Nontender on exam. non-distended, normoactive bowel sounds. No palpable organomegaly. MUSCULOSKELETAL: No joint swelling or deformity. EXTREMITIES: No cyanosis, clubbing, or pedal edema. NEUROLOGICAL: Gross neurological examination did not reveal any focal deficits. SKIN: No rashes. Assessment: Intractable nausea and vomiting, possibly secondary to acute gastritis as noted on EGD Hypokalemia, improved History of coronary artery disease with stenting hypertension GI prophylaxis DVT prophylaxis Full code Plan: Recommend to continue with current medications and management with general surgery following. Patient underwent EGD showing some inflammation and gastritis has been started on full liquid diet. Patient is tolerating more oral intake although not much and does not have much of an appetite. Patient does not prefer the food and is eating very little. CT abdomen with no acute findings that was ordered by general surgery and reports as being stable for discharge. Patient will be monitored overnight with tolerance to medications as well as oral intake. Encouraged small frequent meals Recommend crushing medications that are able to be crushed as patient is able to tolerate more Will monitor overnight for tolerance to diet with discharge in 24 hours The impression and plan of care has been dictated by Wandy Turcios, nurse practitioner as directed. Dr. Steve MD I have performed a history and examination and MDM of this patient, discussed the same with the dictator, and agree with the dictator's assessment and plan as written ,documented as a scribe. Based on total visit time, I have performed more than 50% of the visit. Any additional findings or plans will be noted. Objective - Vital Signs Vital signs: Vital Signs Temp 97.8 F 07/10/22 14:57 Pulse 98 07/10/22 14:57 Resp 16 07/10/22 14:57 BP 131/90 07/10/22 14:57 Pulse Ox 98 07/10/22 14:57 FiO2 Intake & Output 07/09/22 07/10/22 07/10/22 18:59 06:59 18:59 Intake Total 240 696.249 0 Balance 240 696.249 0 Weight 72.575 kg Intake: Intake, IV Titration 196.249 Amount Heparin Sod,Pork in 0.45% 196.249 NaCl 25,000 unit In 0.45 % NaCl 1 250ml.bag @ 12 UNITS/KG/HR 8.709 mls/hr IV .Q24H [facility] Rx#: [id number] Oral 240 500 0 Other: Voiding Method Toilet # Voids 1 1 # Bowel Movements 1 1 - Labs CBC & Chem 7: 07/09/22 04:10 07/09/22 04:10 Labs: Abnormal Lab Results - Last 24 Hours (Table) 07/10/22 Range/Units 06:12 APTT 57.6 H (22.0-30.0) sec
[2022-07-10] MEDS: THIAMINE 100 MG TAB PO SCH (21:20)
[2022-07-10] MEDS: ATORVASTATIN 40 MG TAB PO SCH (21:20)
[2022-07-11] MEDS: MORPHINE SULFATE 2 MG/ML SYRINGE IVP PRN ×2 (02:41→09:28)
[2022-07-11] MEDS: SODIUM CHLORIDE 0.9% 1,000 ML IV SCH (02:41)
[2022-07-11] MEDS: METOCLOPRAMIDE 5 MG TAB PO SCH ×2 (06:43→11:38)
[2022-07-11] MEDS: HYDROcodone/APAP 10-325MG 1 EACH TAB PO PRN (06:45)
[2022-07-11 07:58] VITALS: BP 127/90; PULSE 86; RESP 16; TEMP 98.2
[2022-07-11] MEDS ORDERED: LACOSAMIDE 50 MG TABLET PO SCH (09:00)
[2022-07-11] MEDS: SPIRONOLACTONE 25 MG TAB PO SCH (09:29)
[2022-07-11] MEDS: ASPIRIN 81 MG PO SCH (09:29)
[2022-07-11] MEDS: CLOPIDOGREL 75 MG TAB PO SCH (09:30)
[2022-07-11] MEDS: METOPROLOL SUCCINATE (ER) 25 MG TAB.ER.24H PO SCH (09:30)
[2022-07-11] MEDS: PANTOPRAZOLE 40 MG/10 ML VIAL IVP SCH (09:30)
--- NOTE | 2022-07-11 10:06 | P.PN ---
Subjective Progress Note Date: 07/11/22 History of present illness: This is a 52-year-old patient of Dr. Corrales with first appointment scheduled for 07/10 with past medical history of history of hypertension, hyperlipidemia, Ivana Cárdenas syndrome, wheelchair bound remote history of tobacco use quit approximately 8 months ago. Patient was recently hospitalized for chest pain, stent to the LAD on 06/03. Patient gives history that she has had nausea and vomiting for the past 2 weeks and for the past 3-4 days is unable to keep any of her medications down. She is complaining of abdominal pain across her abdomen that is more severe on the right and posterior to the back. She has had her gallbladder out. She denies any fever or chills. No sick contacts. She has been on morphine and Zofran. She is still not able to keep any of her med ications down. She has been started on heparin drip. EKG was sinus tachycardia 110 bpm WBC 8.7, hemoglobin 12, platelet count 282. Sodium 134, potassium 3.1, chloride 97, CO2 32, BUN 4 and creatinine 0.72. Alkaline phosphatase 138 otherwise liver function tests are normal. Home cardiac medications: Norvasc 5 mg at bedtime, aspirin 81 mg daily, atorvastatin 40 mg at bedtime, Plavix 75 mg daily, spironolactone 50 mg daily Cardiac catheterization 06/03/2022 at [facility] and there was 50- 60% mid LAD lesion and she was then transferred to [facility], iFR and FFR were abnormal with 60-70% mid LAD stenosis status post PCI in the mid LAD. 07/07 Patient is seen today in follow-up. She continues to have nausea and vomiting unable to keep any pills down. Her last bowel movement was 6 days ago. Patient is very tender in the abdomen today. Her heart rate is controlled, running in the 90s, blood pressure 113/76. No repeat blood work today. She has been on heparin drip and we added a rectal aspirin yesterday. 07/08 Patient is seen today in follow-up. She continues to have nausea and vomiting and, intractable. She unable to take any oral medications. She underwent a CAT scan that did not show any acute findings. General surgery has her scheduled for EGD today. Patient is continued on a heparin drip and rectal aspirin. 07/09 Patient underwent EGD yesterday with Dr. Trejo which revealed hiatal hernia and gastritis. Patient attempted to take aspirin and Plavix with small amount applesauce but vomited this immediately. 07/10 Yesterday, we added scopolamine patch for the patient. Today she is able to keep her medications down will be started on metoprolol as well as her other home cardiac medications. IV metoprolol and aspirin suppository will be discontinued. Heart rate 87, blood pressure 113/86. 07/11 Patient is able to keep her medications down. Blood pressures are 127/90, heart rate in the 80s and 90s. Pulse ox 97% on room air. Patient underwent a CAT scan ordered by Gen. surgery last evening. No significant findings on this which discussion with the patient deferred to general surgery. Physical examination: Gen: This is a obese 52-year-old female. She is resting in bed and appears to be comfortable. VS: reviewed HEENT: Head is atraumatic, normocephalic. Pupils equal, round. Sclerae is anicteric. NECK: Supple. No JVD. LUNGS: Clear to auscultation. No wheezes or rhonchi. No intercostal retractions. HEART: Regular rate and rhythm. No murmur. ABDOMEN: Soft. Extremely tender to touch EXTREMITIES: No pedal edema. No calf tenderness. NEUROLOGICAL: Patient is awake, alert and oriented x3. Assessment: Intractable nausea and vomiting Hypokalemia Coronary artery disease with recent stenting of the LAD 06/03 Hypertension Hyperlipidemia Ivana Cárdenas syndrome Plan: Continue patient's current cardiac medications Patient is cleared for discharge home and may follow-up in the office with Dr. Corrales and 2 weeks. Cardiology will sign off and follow on an as-needed basis. Please reconsult for any new concerns. Nurse practitioner note has been reviewed, I agree with documented findings and plan of care. Patient was seen and examined. 07/10 Objective - Vital Signs Vital signs: Vital Signs Temp 98.2 F 07/11/22 07:00 Pulse 86 07/11/22 07:00 Resp 16 07/11/22 07:00 BP 127/90 07/11/22 07:00 Pulse Ox 97 07/11/22 07:00 FiO2 Intake & Output 07/10/22 07/11/22 07/11/22 18:59 06:59 18:59 Intake Total 0 Balance 0 Weight 72.575 kg Intake: Oral 0 Other: Voiding Method Toilet # Voids 1 1 # Bowel Movements 1 - Labs CBC & Chem 7: 07/09/22 04:10 07/09/22 04:10
--- NOTE | 2022-07-13 18:35 | P.DS ---
Providers Date of admission: 07/04/22 22:47 Expected date of discharge: 07/11/22 Attending physician: Romeo Power MD Consults: 07/05/22 15:11 Consult Physician Routine Consulting Provider: Vel Varela Consult Reason/Comments: recent Stent placement, intractable N/V Do you want consulting provider notified?: Yes 07/07/22 13:38 Consult Physician Routine Consulting Provider: Dean Trejo Consult Reason/Comments: Abdominal pain/ intractable N/V Do you want consulting provider notified?: Yes Primary care physician: José Reece Hospital Course: Final diagnosis Intractable nausea and vomiting, possibly secondary to acute gastritis as noted on EGD Hypokalemia, improved History of coronary artery disease with stenting hypertension GI prophylaxis DVT prophylaxis Full code Discharge disposition Patient is being discharged in a stable condition with guarded prognosis to home . Patient will follow-up with Dr. Reece in the outpatient setting upon discharge. Patient is to continue with soft full liquid and slowly advance to low fiber diet and follow-up with general surgery outpatient as scheduled. Total time taken is greater than 35 minutes. Hospital course This is a 52-year-old female who was recently admitted with nausea vomiting and abdominal pain and being closely monitored. Patient was evaluated by general surgery underwent EGD showing gastritis and having continued abdominal discomfort with inability to tolerate foods. Patient diet has been slowly advanced although not much of an appetite and does not prefer the hospital food. Patient maintained on gentle IV hydration and closely observed was slowly improving tolerance diet. Patient will continue full liquids and slowly advance as tolerated in the outpatient setting. Patient has been cleared by general surgery for outpatient follow-up. Please refer to surgery notes for further HPI. Patient also encouraged and instructed to follow-up with primary care provider this week. Currently no reports of chest pain, shortness of breath, or palpitations. Patient is afebrile. No reports of nausea or vomiting and patient is tolerating diet. Patient will be discharged home today. Guarded prognosis and high risk for readmission as patient frequently returns to the emergency department multiple times. Encourage the patient to follow-up with primary care provider this week and a copy of this documentation will be sent. Physical exam: Gen: This is a 52-year-old female is awake, alert and oriented 3, well- developed, well-nourished, appears older than stated age HEENT: Head is atraumatic, normocephalic. Pupils equal, round. Sclerae is anicteric. NECK: Supple. No JVD. No lymphadenopathy. No thyromegaly. LUNGS: Clear to auscultation. No wheezes or rhonchi. No intercostal retractions. HEART: Regular rate and rhythm. No murmur. ABDOMEN: Soft. Bowel sounds are present. No masses. No tenderness. EXTREMITIES: No pedal edema. No calf tenderness. NEUROLOGICAL: Patient is awake, alert and oriented x3. Cranial nerves 2 through 12 are grossly intact. Please refer to medication reconciliation sheet for a list of medications. The impression and plan of care has been dictated by Wandy Turcios, Nurse Practitioner as directed. Dr Wilson. MD I have performed a history and examination and MDM of this patient, discussed the same with the dictator, and agree with the dictator's assessment and plan as written ,documented as a scribe. Based on total visit time, I have performed more than 50% of the visit. Patient Condition at Discharge: Stable Plan - Discharge Summary Discharge Rx Participant: No New Discharge Prescriptions: New Metoprolol Succinate (ER) [Toprol XL] 25 mg PO DAILY #30 tab Continue amLODIPine [Norvasc] 5 mg PO HS Thiamine [Vitamin B-1] 100 mg PO HS Atorvastatin [Lipitor] 40 mg PO HS HYDROcodone/APAP 10-325MG [[place] 10-325] 1 tab PO TID PRN PRN Reason: Pain Cyclobenzaprine [Flexeril] 10 mg PO TID PRN PRN Reason: Pain Atogepant [Qulipta] 60 mg PO HS Spironolactone [Aldactone] 50 mg PO DAILY Aspirin 81 mg PO DAILY tab Ondansetron Odt [Zofran ODT] 4 mg PO Q8HR PRN #9 tab PRN Reason: Nausea Omeprazole [PriLOSEC] 20 mg PO BID Lacosamide [Vimpat] 100 mg PO BID 7 Days #14 tab DULoxetine HCL [Cymbalta] 60 mg PO HS Clopidogrel [Plavix] 75 mg PO DAILY #90 tab Discharge Medication List amLODIPine [Norvasc] 5 mg PO HS 04/28/20 [History] Omeprazole [PriLOSEC] 20 mg PO BID 12/15/20 [History] Thiamine [Vitamin B-1] 100 mg PO HS 01/04/21 [History] Lacosamide [Vimpat] 100 mg PO BID 7 Days #14 tab 01/16/21 [Rx] Atorvastatin [Lipitor] 40 mg PO HS 07/20/21 [History] DULoxetine HCL [Cymbalta] 60 mg PO HS 07/20/21 [History] Atogepant [Qulipta] 60 mg PO HS 06/03/22 [History] Cyclobenzaprine [Flexeril] 10 mg PO TID PRN 06/03/22 [History] HYDROcodone/APAP 10-325MG [[place] 10-325] 1 tab PO TID PRN 06/03/22 [History] Aspirin 81 mg PO DAILY tab 06/04/22 [Rx] Clopidogrel [Plavix] 75 mg PO DAILY #90 tab 06/04/22 [Rx] Spironolactone [Aldactone] 50 mg PO DAILY 06/04/22 [History] Ondansetron Odt [Zofran ODT] 4 mg PO Q8HR PRN #9 tab 06/26/22 [Rx] Metoprolol Succinate (ER) [Toprol XL] 25 mg PO DAILY #30 tab 07/11/22 [Rx] Follow up Appointment(s)/Referral(s): José Reece MD [Primary Care Provider] - 1-2 days Eddie Corrales DO [STAFF PHYSICIAN] - 07/25/22 9:30 am Dean Trejo MD [STAFF PHYSICIAN] - 07/24/22 1:45 pm Activity/Diet/Wound Care/Special Instructions: activity limited until follow up follow up with gen surgery this week Continue taking medications as prescribed Discharge Disposition: HOME SELF-CARE
== END 2022-07-11 12:00 | disposition home or self-care (01) | DRG 241 ==
LOC: EC 19:55 → INTOOBSV 22:47 → OBSVTOIN 22:47 → 6NMEDSUR 22:47 → INTOOBSV 07-08 14:30 → OBSVTOIN 07-08 14:30
PROVIDERS: ADMIT Internal Medicine; ATTEND Internal Medicine
PROC: 0DB78ZX Excision of Stomach, Pylorus, Via Natural or Artificial Opening Endoscopic, Diagnostic (ICD-10-PCS; principal; 2022-07-08 08:10)
DX: K29.00 Acute gastritis without bleeding (principal); G61.0 Guillain-Barre syndrome; I10 Essential (primary) hypertension; E87.6 Hypokalemia; E86.0 Dehydration; R00.0 Tachycardia, unspecified; I25.10 Atherosclerotic heart disease of native coronary artery without angina pectoris; E78.5 Hyperlipidemia, unspecified; K44.9 Diaphragmatic hernia without obstruction or gangrene; K31.9 Disease of stomach and duodenum, unspecified; R13.10 Dysphagia, unspecified; E83.42 Hypomagnesemia; Z95.5 Presence of coronary angioplasty implant and graft; Z86.61 Personal history of infections of the central nervous system; Z91.018 Allergy to other foods; Z88.8 Allergy status to other drugs, medicaments and biological substances; Z88.6 Allergy status to analgesic agent; Z88.1 Allergy status to other antibiotic agents; Z88.5 Allergy status to narcotic agent; Z88.0 Allergy status to penicillin; Z91.040 Latex allergy status; Z79.899 Other long term (current) drug therapy; Z79.82 Long term (current) use of aspirin; Z79.02 Long term (current) use of antithrombotics/antiplatelets; Z87.891 Personal history of nicotine dependence; Z99.3 Dependence on wheelchair
CPT/HCPCS: 36415; 43239; 74176; 74178; 80048; 80053; 81003; 83690; 83735; 85025; 85610; 85730; 88305; 93005; 96361; 96365; 96366; 96367; 96375; 96376; 99285

== ENCOUNTER 2022-07-24 17:59 | Emergency (ER) | payer OTHER ==
[2022-07-24] MEDS ORDERED: SODIUM CHLORIDE 0.9% 1,000 ML IV STA (20:22)
[2022-07-24] MEDS ORDERED: diphenhydrAMINE 50 MG/ML 1 ML VIAL IVP STA (20:23)
[2022-07-24] MEDS ORDERED: HYDROmorphone 0.5 MG/0.5 ML SYRINGE IVP STA (20:24)
[2022-07-24 21:26] LABS: Basophils % (A) 0 %; Eosinophils # (A) 0.2 k/uL (0-0.7); Eosinophils % (A) 2 %; HCT 33.5 % (34.0-46.0); HGB 11.4 gm/dL (11.4-16.0); Lymphocytes % (A) 29 %; MCH 32.8 pg (25.0-35.0); MCHC 34.1 g/dL (31.0-37.0); MCV 96.4 fL (80.0-100.0); Mean Platelet Volume 7.8; Monocytes # (A) 0.4 k/uL (0-1.0); Monocytes % (A) 6 %; Neutrophils # (A) 4.1 k/uL (1.3-7.7); Neutrophils % (A) 60 %; Platelet Count 381 k/uL (150-450); RBC 3.47 m/uL (3.80-5.40); RDW 15.6 % (11.5-15.5); WBC 6.8 k/uL (3.8-10.6)
[2022-07-24 21:50] LABS: ALT 38 U/L (4-34); AST 28 U/L (14-36); African American GFR (CKD) >90 (>60 ml/min/1.73 sqM); Albumin 3.6 g/dL (3.5-5.0); Alkaline Phosphatase 113 U/L (38-126); Anion Gap 7 mmol/L; Blood Urea Nitrogen 17 mg/dL (7-17); Calcium 8.8 mg/dL (8.4-10.2); Carbon Dioxide 26 mmol/L (22-30); Chloride 106 mmol/L (98-107); Glucose 85 mg/dL (74-99); Non-African American GFR(CKD) >90 (>60 ml/min/1.73 sqM); Potassium 4.1 mmol/L (3.5-5.1); Sodium 139 mmol/L (137-145); Total Bilirubin 0.2 mg/dL (0.2-1.3); Total Protein 6.1 g/dL (6.3-8.2)
--- NOTE | 2022-07-24 22:19 | ED ---
Headache HPI - General Chief Complaint: Headache Stated Complaint: Headache Time Seen by Provider: 07/24/22 20:21 Mode of arrival: ambulatory Limitations: no limitations - History of Present Illness Initial Comments: Started on Friday. Patient has history of migraine she is well known in our emergency department. States this migraine feels typical of her other migraines. She also reports nausea, subjective fever and mild neck pain. She denies injury and recent falls. She denies cough, other cold-like symptoms, abdominal pain, vomiting. She denies focal deficit and weakness. Denies chest pain and shortness of breath. - Related Data Home Medications Medication Instructions Recorded Confirmed amLODIPine [Norvasc] 5 mg PO HS 04/28/20 07/05/22 Omeprazole [PriLOSEC] 20 mg PO BID 12/15/20 07/05/22 Thiamine [Vitamin B-1] 100 mg PO HS 01/04/21 07/05/22 Atorvastatin [Lipitor] 40 mg PO HS 07/20/21 07/05/22 DULoxetine HCL [Cymbalta] 60 mg PO HS 07/20/21 07/05/22 Atogepant [Qulipta] 60 mg PO HS 06/03/22 07/05/22 Cyclobenzaprine [Flexeril] 10 mg PO TID PRN 06/03/22 07/05/22 HYDROcodone/APAP 10-325MG [[place] 1 tab PO TID PRN 06/03/22 07/05/22 10-325] Spironolactone [Aldactone] 50 mg PO DAILY 06/04/22 07/05/22 Previous Rx's Medication Instructions Recorded Lacosamide [Vimpat] 100 mg PO BID 7 Days #14 tab 01/16/21 Aspirin 81 mg PO DAILY tab 06/04/22 Clopidogrel [Plavix] 75 mg PO DAILY #90 tab 06/04/22 Ondansetron Odt [Zofran ODT] 4 mg PO Q8HR PRN #9 tab 06/26/22 Metoprolol Succinate (ER) [Toprol 25 mg PO DAILY #30 tab 07/11/22 XL] Allergies Allergy/AdvReac Type Severity Reaction Status Date / Time dihydroergotamine Allergy Unknown Unknown Verified 07/26/22 19:53 [From Migranal] buprenorphine Allergy Rash/Hives Verified 07/26/22 19:53 gabapentin [From Neurontin] Allergy Itching/Swe Verified 07/26/22 19:53 lling latex Allergy Anaphylaxis Verified 07/26/22 19:53 naproxen [From Naprosyn] Allergy Anaphylaxis Verified 07/26/22 19:53 Penicillins Allergy Anaphylaxis Verified 07/26/22 19:53 prednisone Allergy Swelling Verified 07/26/22 19:53 quetiapine fumarate Allergy Itching, Verified 07/26/22 19:53 [From Seroquel] leg cramps rofecoxib [From Vioxx] Allergy Itching, Verified 07/26/22 19:53 leg cramps terfenadine [From Seldane] Allergy Rash/Hives Verified 07/26/22 19:53 tramadol Allergy Nausea & Verified 07/26/22 19:53 Vomiting/LEG CRAMPS/HEART FLUTTERS calcium carbonate [From DHEA] AdvReac Chest Pain Verified 07/26/22 19:53 calcium phosphate,dibasic AdvReac Chest Pain Verified 07/26/22 19:53 [From DHEA] clindamycin AdvReac muscle Verified 07/26/22 19:53 cramps clonidine AdvReac fast Verified 07/26/22 19:53 heartbeat, migraine dextromethorphan HBr AdvReac face/neck Verified 07/26/22 19:53 [From NyQuil] flushing diazepam [From Valium] AdvReac Nausea & Verified 07/26/22 19:53 Vomiting divalproex sodium AdvReac Nausea & Verified 07/26/22 19:53 [From Depakote] Vomiting doxylamine [From NyQuil] AdvReac face "beet Verified 07/26/22 19:53 red", elevated temp. ibuprofen [From Motrin] AdvReac abdominal Verified 07/26/22 19:53 & muscle cramps indomethacin [From Indocin] AdvReac Abdominal Verified 07/26/22 19:53 Pain,N/V ketorolac tromethamine AdvReac "built up Verified 07/26/22 19:53 [From Toradol] in system", had to be given something to reverse lorazepam [From Ativan] AdvReac Nausea & Verified 07/26/22 19:53 Vomiting memantine [From Namenda] AdvReac Itching Verified 07/26/22 19:53 metoclopramide HCl AdvReac muscle Verified 07/26/22 19:53 [From Reglan] cramps nortriptyline [From Pamelor] AdvReac Chest Pain Verified 07/26/22 19:53 prasterone (DHEA) [From DHEA] AdvReac Chest Pain Verified 07/26/22 19:53 prochlorperazine AdvReac leg Verified 07/26/22 19:53 [From Compazine] cramping propranolol AdvReac Chest Pain Verified 07/26/22 19:53 pseudoephedrine HCl AdvReac face "beet Verified 07/26/22 19:53 [From NyQuil] red", elevated temp. quetiapine [From Seroquel] AdvReac leg Verified 07/26/22 19:53 cramping sumatriptan [From Imitrex] AdvReac migrane Verified 07/26/22 19:53 sumatriptan succinate AdvReac migrane Verified 07/26/22 19:53 [From Imitrex] topiramate [From Topamax] AdvReac "built up Verified 07/26/22 19:53 in system", had to be given something to reverse trazodone AdvReac "built up Verified 07/26/22 19:53 in system", had to be given something to reverse zolpidem tartrate AdvReac "Became Verified 07/26/22 19:53 [From Ambien] violent with no memory" zonisamide [From Zonegran] AdvReac inability Verified 07/26/22 19:53 to eat artificial sweetener AdvReac SEVERE Uncoded 07/26/22 19:53 MIGRAINE HEADACHE prosyn AdvReac Itching Uncoded 07/26/22 19:53 Review of Systems ROS Statement: Those systems with pertinent positive or pertinent negative responses have been documented in the HPI. ROS Other: All systems not noted in ROS Statement are negative. Past Medical History Past Medical History: Hyperlipidemia, Hypertension, Seizure Disorder Additional Past Medical History / Comment(s): Migraines, viral meningitis x3 as a child, 1995, 2000, chronic back pain, nerve blocks 08/2016 and 12/2016. Last seizure 10/10/2020, "ABSENT SEIZURES. HX TACHYCARDIA, GBS/CIPD, PTSD. History of Any Multi-Drug Resistant Organisms: None Reported Past Surgical History: Appendectomy, Section, Cholecystectomy, Heart Catheterization With Stent, Hernia Repair, Hysterectomy, Orthopedic Surgery, Tonsillectomy, Tubal Ligation Additional Past Surgical History / Comment(s): Hiatal Hernia, umbilical hernia repair, left rotator cuff repair, bilateral knee scopes, pain clinic procedures- occipital nerve block. abd exploratory sx(endometreosis), 3 abd scopes 1981, 1989, 1991), lumbar puncture. EGD. nerve biopsy, salvalry gland biospy Past Anesthesia/Blood Transfusion Reactions: No Reported Reaction Additional Past Anesthesia/Blood Transfusion Reaction / Comment(s): Claustrophobic Date of Last Stent Placement:: 06/03/2022 Past Psychological History: Anxiety, Bipolar, Panic Disorder, PTSD Smoking Status: Former smoker Past Alcohol Use History: None Reported Past Drug Use History: None Reported - Past Family History Mother Family Medical History: Cancer, Dementia, Diabetes Mellitus, GERD/Reflux, Hyperlipidemia, Hypertension, Thyroid Disorder Additional Family Medical History / Comment(s): CABG Father History Unknown: Yes Family Medical History: No Reported History General Exam Limitations: no limitations General appearance: alert, in no apparent distress Head exam: Present: atraumatic, normocephalic, normal inspection Eye exam: Present: normal appearance, PERRL, EOMI. Absent: scleral icterus, conjunctival injection, periorbital swelling Neck exam: Present: normal inspection. Absent: tenderness, meningismus, lymphadenopathy, thyromegaly Respiratory exam: Present: normal lung sounds bilaterally. Absent: respiratory distress, wheezes, rales, rhonchi, stridor Cardiovascular Exam: Present: regular rate, normal rhythm, normal heart sounds. Absent: systolic murmur, diastolic murmur, rubs, gallop, clicks GI/Abdominal exam: Present: soft, normal bowel sounds. Absent: distended, tenderness, guarding, rebound, rigid Neurological exam: Present: alert, oriented X3, CN II-XII intact Expanded Speech: Present: fluid speech Cranial nerves: Facial Sensation: Normal, Facial Palsy with Forehead Movement: Normal Cerebellar function: Finger to Nose: Normal Sensory exam: Upper Extremity Light Touch: Normal, Lower Extremity Light Touch: Normal Motor strength exam: RUE: 5, LUE: 5, RLE: 5, LLE: 5 Psychiatric exam: Present: normal affect, normal mood Skin exam: Present: warm, dry, intact, normal color. Absent: rash Course Vital Signs 07/24/22 07/24/22 18:25 22:30 Temperature 98.8 F 98.4 F Pulse Rate 107 H 96 Respiratory 20 16 Rate Blood Pressure 120/81 160/103 O2 Sat by Pulse 98 97 Oximetry Medical Decision Making - Medical Decision Making Was pt. sent in by a medical professional or institution (, PA, FINISH MACHINE TENDER, urgent care, hospital, or long-term...) When possible be specific @ -No Did you speak to anyone other than the patient for history (EMS, parent, family, police, friend...)? What history was obtained from this source @ -No Did you review nursing and triage notes (agree or disagree)? Why? @ -I reviewed and agree with nursing and triage notes Were old charts reviewed (outside hosp., previous admission, EMS record, old EKG, old radiological studies, urgent care reports/EKG's, long-term records)? Report findings @ -No old charts were reviewed Differential Diagnosis (chest pain, altered mental status, abdominal pain women, abdominal pain men, vaginal bleeding, weakness, fever, dyspnea, syncope, headache, dizziness, GI bleed, back pain, seizure, CVA, palpatations, mental health)? @ -Differential Headache: Migraine, tension, cluster, carbon monoxide, central venous thrombosis, pension karma temporal arteritis, acute closure glaucoma, intercranial hemorrhage, mastoiditis, sinusitis, head injury, this is not meant to be an all-inclusive list. EKG interpreted by me (3pts min.). @ -As above X-rays interpreted by me (1pt min.). @ -None done CT interpreted by me (1pt min.). @ -None done U/S interpreted by me (1pt. min.). @ -None done What testing was considered but not performed or refused? (CT, X-rays, U/S, labs)? Why? @ -Considered CT imaging of the brain however patient has migraine typical of her chronic migraines What meds were considered but not given or refused? Why? @ -None Did you discuss the management of the patient with other professionals (professionals i.e. , SHANTHI, FINISH MACHINE TENDER, lab, RT, psych nurse, psychosocial rehabilitation counselor, set up mechanic stamping machines, teacher, executive officer, trimming caser)? Give summary @ -No Was smoking cessation discussed for >3mins.? @ -No Was critical care preformed (if so, how long)? @ -No Were there social determinants of health that impacted care today? How? (Homelessness, low income, unemployed, alcoholism, drug addiction, tr ansportation, low edu. Level, literacy, decrease access to med. care, [facility], rehab)? @ -No Was there de-escalation of care discussed even if they declined (Discuss DNR or withdrawal of care, Hospice)? DNR status @ -No What co-morbidities impacted this encounter? (DM, HTN, Smoking, COPD, CAD, Cancer, CVA, ARF, Chemo, Hep., AIDS, mental health diagnosis, sleep apnea, morbid obesity)? @ -None Was patient admitted / discharged? Hospital course, mention meds given and route, prescriptions, significant lab abnormalities, going to OR and other pertinent info. @ -Patient presenting with migraine. No neurological deficit on exam. Patient also complains of neck pain she has not have pain with range of motion or with palpation. No lymphadenopathy. No fever currently. Laboratory studies obtained. There is no leukocytosis. Other laboratory studies unremarkable. Headache treated in the emergency department with improvement. Patient is discharged she is to follow up with her neurologist. Undiagnosed new problem with uncertain prognosis? @ -No Drug Therapy requiring intensive monitoring for toxicity (Heparin, Nitro, Insulin, Cardizem)? @ -No Were any procedures done? @ -No Diagnosis/symptom? @ -migraine Acute, or Chronic, or Acute on Chronic? @ -Acute on chronic Complicated (without systemic symptoms) or Complicated (systemic symptoms)? @ -uncomplicated Side effects of treatment? @ -No Exacerbation, Progression, or Severe Exacerbation? @ -No Poses a threat to life or bodily function? How? (Chest pain, [place], [place], pneumonia, PE, COPD, DKA, ARF, appy, cholecystitis, CVA, Diverticulitis, Homicidal, Suicidal, threat to staff... and all critical care pts) @ -[No] Dr. Mclaughlin is my attending - Lab Data Result diagrams: 07/24/22 20:56 07/24/22 20:56 Lab Results 07/24/22 07/24/22 07/24/22 Range/Units 20:56 20:56 20:56 WBC 6.8 (3.8-10.6) k/uL RBC 3.47 L (3.80-5.40) m/uL Hgb 11.4 (11.4-16.0) gm/dL Hct 33.5 L (34.0-46.0) % MCV 96.4 (80.0-100.0) fL MCH 32.8 (25.0-35.0) pg MCHC 34.1 (31.0-37.0) g/dL RDW 15.6 H (11.5-15.5) % Plt Count 381 (150-450) k/uL MPV 7.8 Neutrophils % 60 % Lymphocytes % 29 % Monocytes % 6 % Eosinophils % 2 % Basophils % 0 % Neutrophils # 4.1 (1.3-7.7) k/uL Lymphocytes # 2.0 (1.0-4.8) k/uL Monocytes # 0.4 (0-1.0) k/uL Eosinophils # 0.2 (0-0.7) k/uL Basophils # 0.0 (0-0.2) k/uL Sodium 139 (137-145) mmol/L Potassium 4.1 (3.5-5.1) mmol/L Chloride 106 (98-107) mmol/L Carbon Dioxide 26 (22-30) mmol/L Anion Gap 7 mmol/L BUN 17 (7-17) mg/dL Creatinine 0.66 (0.52-1.04) mg/dL Est GFR (CKD-EPI)AfAm >90 (>60 ml/min/1.73 sqM) Est GFR (CKD-EPI)NonAf >90 (>60 ml/min/1.73 sqM) Glucose 85 (74-99) mg/dL Calcium 8.8 (8.4-10.2) mg/dL Total Bilirubin 0.2 (0.2-1.3) mg/dL AST 28 (14-36) U/L ALT 38 H (4-34) U/L Alkaline Phosphatase 113 (38-126) U/L Total Protein 6.1 L (6.3-8.2) g/dL Albumin 3.6 (3.5-5.0) g/dL Influenza Type A (PCR) Not Detected (Not Detectd) Influenza Type B (PCR) Not Detected (Not Detectd) RSV (PCR) Not Detected (Not Detectd) SARS-CoV-2 (PCR) Not Detected (Not Detectd) Disposition Clinical Impression: Migraine Disposition: HOME SELF-CARE Condition: Good Instructions (If sedation given, give patient instructions): Migraine Headache (ED) Additional Instructions: follow-up with neurology in 1-2 days. Return to emergency department if you experience new, concerning, or worsening symptoms Is patient prescribed a controlled substance at d/c from ED?: No Referrals: José Reece MD [Primary Care Provider] - 1-2 days
[2022-07-24 22:30] VITALS: BP 160/103; PULSE 96; RESP 16; TEMP 98.4
== END 2022-07-24 22:45 | disposition home or self-care (01) ==
LOC: EC 17:59
DX: G43.909 Migraine, unspecified, not intractable, without status migrainosus (principal); E78.5 Hyperlipidemia, unspecified; I10 Essential (primary) hypertension; F41.9 Anxiety disorder, unspecified; F31.9 Bipolar disorder, unspecified; Z79.899 Other long term (current) drug therapy; Z91.040 Latex allergy status; Z88.8 Allergy status to other drugs, medicaments and biological substances; Z88.6 Allergy status to analgesic agent; Z88.5 Allergy status to narcotic agent; Z88.2 Allergy status to sulfonamides; Z88.1 Allergy status to other antibiotic agents; Z88.0 Allergy status to penicillin; Z87.891 Personal history of nicotine dependence; Z20.822 Contact with and (suspected) exposure to COVID-19
CPT/HCPCS: 36415; 80053; 85025; 87636; 99283; 96374; 96375 ×2; 96361 ×2; J1200; J1642; J1170

== ENCOUNTER 2022-07-26 19:27 | Emergency (ER) | payer OTHER ==
[2022-07-26 19:53] VITALS: BP 135/89; PULSE 113; RESP 20; TEMP 98.9
[2022-07-26] MEDS ORDERED: ONDANSETRON ODT 4 MG TAB PO STA (21:32)
[2022-07-26] MEDS ORDERED: diphenhydrAMINE 50 MG CAP PO STA (21:32)
--- NOTE | 2022-07-26 21:34 | ED ---
General Adult HPI - General Chief complaint: Headache Stated complaint: MIGRAINE/FEVER/CHILLS Time Seen by Provider: 07/26/22 20:25 Source: patient, RN notes reviewed, old records reviewed Mode of arrival: wheelchair Limitations: no limitations - History of Present Illness Initial comments: 52-year-old female presented to emergency department for chief complaint flank pain. Patient states that his started on Friday. She does have history of migraines and is on daily medication for them. She states she has tried "everything" to take care of the headache including norco 10mg that she is prescribed for back pain but nothing is helping. She states that she has felt hot but no documented fever at home. She is afebrile at time of triage. She states that she has photosensitivity which is typical of her migraines. She is sitting in the room with the lights off and sunglasses which is helpful. - Related Data Home Medications Medication Instructions Recorded Confirmed amLODIPine [Norvasc] 5 mg PO HS 04/28/20 07/05/22 Omeprazole [PriLOSEC] 20 mg PO BID 12/15/20 07/05/22 Thiamine [Vitamin B-1] 100 mg PO HS 01/04/21 07/05/22 Atorvastatin [Lipitor] 40 mg PO HS 07/20/21 07/05/22 DULoxetine HCL [Cymbalta] 60 mg PO HS 07/20/21 07/05/22 Atogepant [Qulipta] 60 mg PO HS 06/03/22 07/05/22 Cyclobenzaprine [Flexeril] 10 mg PO TID PRN 06/03/22 07/05/22 HYDROcodone/APAP 10-325MG [[place] 1 tab PO TID PRN 06/03/22 07/05/22 10-325] Spironolactone [Aldactone] 50 mg PO DAILY 06/04/22 07/05/22 Previous Rx's Medication Instructions Recorded Lacosamide [Vimpat] 100 mg PO BID 7 Days #14 tab 01/16/21 Aspirin 81 mg PO DAILY tab 06/04/22 Clopidogrel [Plavix] 75 mg PO DAILY #90 tab 06/04/22 Ondansetron Odt [Zofran ODT] 4 mg PO Q8HR PRN #9 tab 06/26/22 Metoprolol Succinate (ER) [Toprol 25 mg PO DAILY #30 tab 07/11/22 XL] Allergies Allergy/AdvReac Type Severity Reaction Status Date / Time dihydroergotamine Allergy Unknown Unknown Verified 07/26/22 19:53 [From Migranal] buprenorphine Allergy Rash/Hives Verified 07/26/22 19:53 gabapentin [From Neurontin] Allergy Itching/Swe Verified 07/26/22 19:53 lling latex Allergy Anaphylaxis Verified 07/26/22 19:53 naproxen [From Naprosyn] Allergy Anaphylaxis Verified 07/26/22 19:53 Penicillins Allergy Anaphylaxis Verified 07/26/22 19:53 prednisone Allergy Swelling Verified 07/26/22 19:53 quetiapine fumarate Allergy Itching, Verified 07/26/22 19:53 [From Seroquel] leg cramps rofecoxib [From Vioxx] Allergy Itching, Verified 07/26/22 19:53 leg cramps terfenadine [From Seldane] Allergy Rash/Hives Verified 07/26/22 19:53 tramadol Allergy Nausea & Verified 07/26/22 19:53 Vomiting/LEG CRAMPS/HEART FLUTTERS calcium carbonate [From DHEA] AdvReac Chest Pain Verified 07/26/22 19:53 calcium phosphate,dibasic AdvReac Chest Pain Verified 07/26/22 19:53 [From DHEA] clindamycin AdvReac muscle Verified 07/26/22 19:53 cramps clonidine AdvReac fast Verified 07/26/22 19:53 heartbeat, migraine dextromethorphan HBr AdvReac face/neck Verified 07/26/22 19:53 [From NyQuil] flushing diazepam [From Valium] AdvReac Nausea & Verified 07/26/22 19:53 Vomiting divalproex sodium AdvReac Nausea & Verified 07/26/22 19:53 [From Depakote] Vomiting doxylamine [From NyQuil] AdvReac face "beet Verified 07/26/22 19:53 red", elevated temp. ibuprofen [From Motrin] AdvReac abdominal Verified 07/26/22 19:53 & muscle cramps indomethacin [From Indocin] AdvReac Abdominal Verified 07/26/22 19:53 Pain,N/V ketorolac tromethamine AdvReac "built up Verified 07/26/22 19:53 [From Toradol] in system", had to be given something to reverse lorazepam [From Ativan] AdvReac Nausea & Verified 07/26/22 19:53 Vomiting memantine [From Namenda] AdvReac Itching Verified 07/26/22 19:53 metoclopramide HCl AdvReac muscle Verified 07/26/22 19:53 [From Reglan] cramps nortriptyline [From Pamelor] AdvReac Chest Pain Verified 07/26/22 19:53 prasterone (DHEA) [From DHEA] AdvReac Chest Pain Verified 07/26/22 19:53 prochlorperazine AdvReac leg Verified 07/26/22 19:53 [From Compazine] cramping propranolol AdvReac Chest Pain Verified 07/26/22 19:53 pseudoephedrine HCl AdvReac face "beet Verified 07/26/22 19:53 [From NyQuil] red", elevated temp. quetiapine [From Seroquel] AdvReac leg Verified 07/26/22 19:53 cramping sumatriptan [From Imitrex] AdvReac migrane Verified 07/26/22 19:53 sumatriptan succinate AdvReac migrane Verified 07/26/22 19:53 [From Imitrex] topiramate [From Topamax] AdvReac "built up Verified 07/26/22 19:53 in system", had to be given something to reverse trazodone AdvReac "built up Verified 07/26/22 19:53 in system", had to be given something to reverse zolpidem tartrate AdvReac "Became Verified 07/26/22 19:53 [From Ambien] violent with no memory" zonisamide [From Zonegran] AdvReac inability Verified 07/26/22 19:53 to eat artificial sweetener AdvReac SEVERE Uncoded 07/26/22 19:53 MIGRAINE HEADACHE prosyn AdvReac Itching Uncoded 07/26/22 19:53 Review of Systems ROS Statement: Those systems with pertinent positive or pertinent negative responses have been documented in the HPI. ROS Other: All systems not noted in ROS Statement are negative. Past Medical History Past Medical History: Hyperlipidemia, Hypertension, Seizure Disorder Additional Past Medical History / Comment(s): Migraines, viral meningitis x3 as a child, 1995, 2000, chronic back pain, nerve blocks 08/2016 and 12/2016. Last seizure 10/10/2020, "ABSENT SEIZURES. HX TACHYCARDIA, GBS/CIPD, PTSD. History of Any Multi-Drug Resistant Organisms: None Reported Past Surgical History: Appendectomy, Section, Cholecystectomy, Heart Catheterization With Stent, Hernia Repair, Hysterectomy, Orthopedic Surgery, Tonsillectomy, Tubal Ligation Additional Past Surgical History / Comment(s): Hiatal Hernia, umbilical hernia repair, left rotator cuff repair, bilateral knee scopes, pain clinic procedures- occipital nerve block. abd exploratory sx(endometreosis), 3 abd scopes 1981, 1989, 1991), lumbar puncture. EGD. nerve biopsy, salvalry gland biospy Past Anesthesia/Blood Transfusion Reactions: No Reported Reaction Additional Past Anesthesia/Blood Transfusion Reaction / Comment(s): Claustrophobic Date of Last Stent Placement:: 06/03/2022 Past Psychological History: Anxiety, Bipolar, Panic Disorder, PTSD Smoking Status: Former smoker Past Alcohol Use History: None Reported Past Drug Use History: None Reported - Past Family History Mother Family Medical History: Cancer, Dementia, Diabetes Mellitus, GERD/Reflux, Hyperlipidemia, Hypertension, Thyroid Disorder Additional Family Medical History / Comment(s): CABG Father History Unknown: Yes Family Medical History: No Reported History General Exam Limitations: no limitations General appearance: alert, in no apparent distress Head exam: Present: atraumatic, normocephalic, normal inspection Eye exam: Present: normal appearance, PERRL, EOMI. Absent: scleral icterus, conjunctival injection, periorbital swelling ENT exam: Present: normal exam, mucous membranes moist Neck exam: Present: normal inspection. Absent: tenderness, meningismus, lymphadenopathy Respiratory exam: Present: normal lung sounds bilaterally. Absent: respiratory distress, wheezes, rales, rhonchi, stridor Cardiovascular Exam: Present: regular rate (Not tachycardic on exam ), normal rhythm, normal heart sounds. Absent: systolic murmur, diastolic murmur, rubs, gallop, clicks GI/Abdominal exam: Present: soft, normal bowel sounds. Absent: distended, tenderness, guarding, rebound, rigid Back exam: Present: normal inspection Neurological exam: Present: alert, oriented X3, CN II-XII intact Psychiatric exam: Present: normal affect, normal mood Skin exam: Present: warm, dry, intact, normal color. Absent: rash Course Vital Signs 07/26/22 19:51 Temperature 98.9 F Pulse Rate 113 H Respiratory 20 Rate Blood Pressure 135/89 O2 Sat by Pulse 99 Oximetry Medical Decision Making - Medical Decision Making Was pt. sent in by a medical professional or institution (, PA, FIREWALL SECURITY ENGINEER, urgent care, hospital, or intermediate...) When possible be specific @ -No Did you speak to anyone other than the patient for history (EMS, parent, family, police, friend...)? What history was obtained from this source @ -No Did you review nursing and triage notes (agree or disagree)? Why? @ -I reviewed and agree with nursing and triage notes Were old charts reviewed (outside hosp., previous admission, EMS record, old EKG, old radiological studies, urgent care reports/EKG's, intermediate records)? Report findings @ -Charts from prior admission were reviewed. Medications administered from prior ED and admission were reviewed. Differential Diagnosis (chest pain, altered mental status, abdominal pain women, abdominal pain men, vaginal bleeding, weakness, fever, dyspnea, syncope, headache, dizziness, GI bleed, back pain, seizure, CVA, palpatations, mental health, musculoskeletal)? @ -Differential Headache: Migraine, tension, cluster, carbon monoxide, central venous thrombosis, pension karma temporal arteritis, acute closure glaucoma, intercranial hemorrhage, mastoiditis, sinusitis, head injury, this is not meant to be an all-inclusive list. EKG interpreted by me (3pts min.). @ -None X-rays interpreted by me (1pt min.). @ -None done CT interpreted by me (1pt min.). @ -None done U/S interpreted by me (1pt. min.). @ -None done What testing was considered but not performed or refused? (CT, X-rays, U/S, labs)? Why? @ -None What meds were considered but not given or refused? Why? @ -None Did you discuss the management of the patient with other professionals (professionals i.e. , SHANTHI, FIREWALL SECURITY ENGINEER, lab, RT, psych nurse, social welfare research worker, reservations clerk, teacher, information assurance officer, trimming caser)? Give summary @ -No Was smoking cessation discussed for >3mins.? @ -No Was critical care preformed (if so, how long)? @ -No Were there social determinants of health that impacted care today? How? (Homelessness, low income, unemployed, alcoholism, drug addiction, transporta tion, low edu. Level, literacy, decrease access to med. care, retirement, rehab)? @ -No Was there de-escalation of care discussed even if they declined (Discuss DNR or withdrawal of care, Hospice)? DNR status @ -No What co-morbidities impacted this encounter? (DM, HTN, Smoking, COPD, CAD, Cancer, CVA, ARF, Chemo, Hep., AIDS, mental health diagnosis, sleep apnea, morbid obesity)? @ -None Was patient admitted / discharged? Hospital course, mention meds given and route, prescriptions, significant lab abnormalities, going to OR and other pertinent info. @ -Discharged. Patient presented to the emergency department with chief complaint of headache. Patient neurologically intact with no red flag signs. Benadryl and zofran were administered. Patient was requesting dilaudid because "nothing else helps." Patient was told that she would not be given narcotics. Patient discharged in stable condition. Case discussed with my attending Dr. Adams. Undiagnosed new problem with uncertain prognosis? @ -No Drug Therapy requiring intensive monitoring for toxicity (Heparin, Nitro, Insulin, Cardizem)? @ -No Were any procedures done? @ -No Diagnosis/symptom? @ -migraine Acute, or Chronic, or Acute on Chronic? @ -acuteu Uncomplicated (without systemic symptoms) or Complicated (systemic symptoms)? @ uncomplicated] Side effects of treatment? @ -No Exacerbation, Progression, or Severe Exacerbation? @ -No Poses a threat to life or bodily function? How? (Chest pain, [place], [place], pneumonia, PE, COPD, DKA, ARF, appy, cholecystitis, CVA, Diverticulitis, Homicidal, Suicidal, threat to staff... and all critical care pts) @ -No Disposition Clinical Impression: Migraine Disposition: HOME SELF-CARE Condition: Stable Instructions (If sedation given, give patient instructions): Acute Headache (ED) Additional Instructions: Please return to the Emergency Department if symptoms worsen or any other concerns. Is patient prescribed a controlled substance at d/c from ED?: No Referrals: José Reece MD [Primary Care Provider] - 1-2 days Time of Disposition: 21:34
== END 2022-07-26 22:15 | disposition home or self-care (01) ==
LOC: EC 19:27
DX: G43.909 Migraine, unspecified, not intractable, without status migrainosus (principal); E78.5 Hyperlipidemia, unspecified; I10 Essential (primary) hypertension; F41.9 Anxiety disorder, unspecified; F31.9 Bipolar disorder, unspecified; Z87.891 Personal history of nicotine dependence; Z79.899 Other long term (current) drug therapy; Z91.040 Latex allergy status; Z88.0 Allergy status to penicillin; Z88.2 Allergy status to sulfonamides; Z88.5 Allergy status to narcotic agent; Z88.8 Allergy status to other drugs, medicaments and biological substances; Z88.1 Allergy status to other antibiotic agents; Z88.6 Allergy status to analgesic agent
CPT/HCPCS: 99283

== ENCOUNTER 2022-08-17 14:46 | Emergency (ER) | payer OTHER ==
[2022-08-17 15:07] VITALS: TEMP 97.9
[2022-08-17] MEDS ORDERED: MORPHINE SULFATE 4 MG/ML SYRINGE IV STA (15:53)
[2022-08-17] MEDS ORDERED: SODIUM CHLORIDE 0.9% 1,000 ML IV STA (15:53)
[2022-08-17] MEDS ORDERED: SODIUM CHLORIDE 0.9% 500 ML 500 ML IV STA (15:53)
[2022-08-17] MEDS ORDERED: ONDANSETRON 4 MG/2 ML VIAL IVP STA (15:53)
--- NOTE | 2022-08-17 15:55 | ED ---
Syncope HPI - General Chief Complaint: Fall Stated Complaint: PASSED OUT-FELL Time Seen by Provider: 08/17/22 15:17 Source: patient, RN notes reviewed, old records reviewed Mode of arrival: ambulatory Limitations: no limitations - History of Present Illness Initial Comments: This is a 52-year-old female well-known to this emergency room patient is coming in for fall in the shower. Patient's fall was from standing with a syncopal event prior to the fall. Patient did land on her left side left hip left buttox. With significant tenderness and swelling, bruising to her left hip and upper thigh area. Patient is unsure if she hit her head, does admit to passing out believes she passed out prior to the fall. Patient was able to bear weight but has significant pain in the left hip back does suffer from persistent headaches. MD Complaint: loss of consciousness, felt faint, collapsed -: minutes(s) Prodromal Symptoms: vision changes, lightheaded -: second(s) Witnessed: no Injuries Sustained Associated with Event: Face, Back Current Symptoms: lightheaded, weakness History: previous syncopal episode, other (History of severe migraines) Context: standing up Treatments Prior to Arrival: none - Related Data On Hormonal Control: No Home Medications Medication Instructions Recorded Confirmed amLODIPine [Norvasc] 5 mg PO HS 04/28/20 07/05/22 Omeprazole [PriLOSEC] 20 mg PO BID 12/15/20 07/05/22 Thiamine [Vitamin B-1] 100 mg PO HS 01/04/21 07/05/22 Atorvastatin [Lipitor] 40 mg PO HS 07/20/21 07/05/22 DULoxetine HCL [Cymbalta] 60 mg PO HS 07/20/21 07/05/22 Atogepant [Qulipta] 60 mg PO HS 06/03/22 07/05/22 Cyclobenzaprine [Flexeril] 10 mg PO TID PRN 06/03/22 07/05/22 HYDROcodone/APAP 10-325MG [[place] 1 tab PO TID PRN 06/03/22 07/05/22 10-325] Spironolactone [Aldactone] 50 mg PO DAILY 06/04/22 07/05/22 Previous Rx's Medication Instructions Recorded Lacosamide [Vimpat] 100 mg PO BID 7 Days #14 tab 01/16/21 Aspirin 81 mg PO DAILY tab 06/04/22 Clopidogrel [Plavix] 75 mg PO DAILY #90 tab 06/04/22 Ondansetron Odt [Zofran ODT] 4 mg PO Q8HR PRN #9 tab 06/26/22 Metoprolol Succinate (ER) [Toprol 25 mg PO DAILY #30 tab 07/11/22 XL] Allergies Allergy/AdvReac Type Severity Reaction Status Date / Time dihydroergotamine Allergy Unknown Unknown Verified 07/26/22 19:53 [From Migranal] buprenorphine Allergy Rash/Hives Verified 07/26/22 19:53 gabapentin [From Neurontin] Allergy Itching/Swe Verified 07/26/22 19:53 lling latex Allergy Anaphylaxis Verified 07/26/22 19:53 naproxen [From Naprosyn] Allergy Anaphylaxis Verified 07/26/22 19:53 Penicillins Allergy Anaphylaxis Verified 07/26/22 19:53 prednisone Allergy Swelling Verified 07/26/22 19:53 quetiapine fumarate Allergy Itching, Verified 07/26/22 19:53 [From Seroquel] leg cramps rofecoxib [From Vioxx] Allergy Itching, Verified 07/26/22 19:53 leg cramps terfenadine [From Seldane] Allergy Rash/Hives Verified 07/26/22 19:53 tramadol Allergy Nausea & Verified 07/26/22 19:53 Vomiting/LEG CRAMPS/HEART FLUTTERS calcium carbonate [From DHEA] AdvReac Chest Pain Verified 07/26/22 19:53 calcium phosphate,dibasic AdvReac Chest Pain Verified 07/26/22 19:53 [From DHEA] clindamycin AdvReac muscle Verified 07/26/22 19:53 cramps clonidine AdvReac fast Verified 07/26/22 19:53 heartbeat, migraine dextromethorphan HBr AdvReac face/neck Verified 07/26/22 19:53 [From NyQuil] flushing diazepam [From Valium] AdvReac Nausea & Verified 07/26/22 19:53 Vomiting divalproex sodium AdvReac Nausea & Verified 07/26/22 19:53 [From Depakote] Vomiting doxylamine [From NyQuil] AdvReac face "beet Verified 07/26/22 19:53 red", elevated temp. ibuprofen [From Motrin] AdvReac abdominal Verified 07/26/22 19:53 & muscle cramps indomethacin [From Indocin] AdvReac Abdominal Verified 07/26/22 19:53 Pain,N/V ketorolac tromethamine AdvReac "built up Verified 07/26/22 19:53 [From Toradol] in system", had to be given something to reverse lorazepam [From Ativan] AdvReac Nausea & Verified 07/26/22 19:53 Vomiting memantine [From Namenda] AdvReac Itching Verified 07/26/22 19:53 metoclopramide HCl AdvReac muscle Verified 07/26/22 19:53 [From Reglan] cramps nortriptyline [From Pamelor] AdvReac Chest Pain Verified 07/26/22 19:53 prasterone (DHEA) [From DHEA] AdvReac Chest Pain Verified 07/26/22 19:53 prochlorperazine AdvReac leg Verified 07/26/22 19:53 [From Compazine] cramping propranolol AdvReac Chest Pain Verified 07/26/22 19:53 pseudoephedrine HCl AdvReac face "beet Verified 07/26/22 19:53 [From NyQuil] red", elevated temp. quetiapine [From Seroquel] AdvReac leg Verified 07/26/22 19:53 cramping sumatriptan [From Imitrex] AdvReac migrane Verified 07/26/22 19:53 sumatriptan succinate AdvReac migrane Verified 07/26/22 19:53 [From Imitrex] topiramate [From Topamax] AdvReac "built up Verified 07/26/22 19:53 in system", had to be given something to reverse trazodone AdvReac "built up Verified 07/26/22 19:53 in system", had to be given something to reverse zolpidem tartrate AdvReac "Became Verified 07/26/22 19:53 [From Ambien] violent with no memory" zonisamide [From Zonegran] AdvReac inability Verified 07/26/22 19:53 to eat artificial sweetener AdvReac SEVERE Uncoded 07/26/22 19:53 MIGRAINE HEADACHE prosyn AdvReac Itching Uncoded 07/26/22 19:53 Review of Systems ROS Statement: Those systems with pertinent positive or pertinent negative responses have been documented in the HPI. ROS Other: All systems not noted in ROS Statement are negative. Past Medical History Past Medical History: Hyperlipidemia, Hypertension, Seizure Disorder Additional Past Medical History / Comment(s): Migraines, viral meningitis x3 as a child, 1995, 2000, chronic back pain, nerve blocks 08/2016 and 12/2016. Last seizure 10/10/2020, "ABSENT SEIZURES. HX TACHYCARDIA, GBS/CIPD, PTSD. History of Any Multi-Drug Resistant Organisms: None Reported Past Surgical History: Appendectomy, Section, Cholecystectomy, Heart Catheterization With Stent, Hernia Repair, Hysterectomy, Orthopedic Surgery, Tonsillectomy, Tubal Ligation Additional Past Surgical History / Comment(s): Hiatal Hernia, umbilical hernia repair, left rotator cuff repair, bilateral knee scopes, pain clinic procedures-occipital nerve block. abd exploratory sx(endometreosis), 3 abd scopes 1981, 1989, 1991), lumbar puncture. EGD. nerve biopsy, salvalry gland biospy Past Anesthesia/Blood Transfusion Reactions: No Reported Reaction Additional Past Anesthesia/Blood Transfusion Reaction / Comment(s): Claustrophobic Date of Last Stent Placement:: 06/03/2022 Past Psychological History: Anxiety, Bipolar, Panic Disorder, PTSD Smoking Status: Former smoker Past Alcohol Use History: None Reported Past Drug Use History: None Reported - Past Family History Mother Family Medical History: Cancer, Dementia, Diabetes Mellitus, GERD/Reflux, Hyperlipidemia, Hypertension, Thyroid Disorder Additional Family Medical History / Comment(s): CABG Father History Unknown: Yes Family Medical History: No Reported History General Exam - General Exam Comments Initial Comments: Significant bruising to left upper thigh, left gluteal area Limitations: no limitations General appearance: alert, in no apparent distress Head exam: Present: atraumatic, normocephalic, normal inspection Eye exam: Present: normal appearance, PERRL, EOMI. Absent: scleral icterus, conjunctival injection, periorbital swelling ENT exam: Present: normal exam, mucous membranes moist Neck exam: Present: normal inspection. Absent: tenderness, meningismus, lymphadenopathy Respiratory exam: Present: normal lung sounds bilaterally. Absent: respiratory distress, wheezes, rales, rhonchi, stridor Cardiovascular Exam: Present: regular rate, normal rhythm, normal heart sounds. Absent: systolic murmur, diastolic murmur, rubs, gallop, clicks GI/Abdominal exam: Present: soft, normal bowel sounds. Absent: distended, tenderness, guarding, rebound, rigid Extremities exam: Present: normal inspection, full ROM, normal capillary refill. Absent: tenderness, pedal edema, joint swelling, calf tenderness Back exam: Present: normal inspection Neurological exam: Present: alert, oriented X3, CN II-XII intact Psychiatric exam: Present: normal affect, normal mood Skin exam: Present: warm, dry, intact, normal color. Absent: rash Course Vital Signs 08/17/22 08/17/22 08/17/22 15:03 15:17 15:26 Temperature 97.9 F Pulse Rate 104 H 80 Respiratory 18 18 18 Rate Blood Pressure 146/93 150/96 150/96 O2 Sat by Pulse 98 98 100 Oximetry 08/17/22 08/17/22 08/17/22 15:30 16:00 16:30 Temperature Pulse Rate 88 Respiratory 18 18 18 Rate Blood Pressure 150/96 135/91 139/88 O2 Sat by Pulse 99 99 Oximetry 08/17/22 17:00 Temperature Pulse Rate 90 Respiratory 18 Rate Blood Pressure 135/95 O2 Sat by Pulse 98 Oximetry - Reevaluation(s) Reevaluation #1: 08/17/22 16:07 Medical records reviewed Reevaluation #2: 08/17/22 16:07 Symptoms improved here in the ER Reevaluation #3: 08/17/22 16:07 Patient informed results questions are answered Reevaluation #4: 08/17/22 17:02 Was pt. sent in by a medical professional or institution? @ -no Did you speak to anyone other than the patient for history? @ -no Did you review nursing and triage notes? @ -agree Were old charts reviewed? @ -yes multiple visits for never for syncope Differential Diagnosis? @ -prior EKG interpreted by me (3pts min.)? @ -yes X-rays interpreted by me (1pt min.)? @ -yes CT interpreted by me (1pt min.)? @ -no U/S interpreted by me (1pt. min.)? @ -no What testing was considered but not performed? (CT, X-rays, U/S, labs)? Why? @ -no What meds were considered but not given? Why? @ -no Did you discuss the management of the patient with other professionals? @ -no Did you reconcile home meds? @ -no Was smoking cessation discussed for >3mins.? @ -no Was critical care preformed (if so, how long)? @ -no Were there social determinants of health that impacted care today? How? (Homelessness, low income, unemployed, alcoholism, drug addiction, transportation, low edu. Level, literacy, decrease access to med. care, [facility], rehab)? @ -no Was there de-escalation of care discussed even if they declined? (Discuss DNR or withdrawal of care, Hospice)? @ -no What co-morbidities impacted this encounter? (DM, HTN, Smoking, COPD, CAD, Cancer, CVA, Hep., AIDS, mental health diagnosis, sleep apnea, morbid obesity)? @ -none Was patient admitted / discharged? @ -dc Undiagnosed new problem with uncertain prognosis? @ -no Drug Therapy requiring intensive monitoring for toxicity (Heparin, Nitro, Insulin, Cardizem)? @ -no Were any procedures done? @ -no Diagnosis/symptom? @ -syncope,buttocks contusion Acute, or Chronic, or Acute on Chronic? @ -acute Uncomplicated (without systemic symptoms) or Complicated (systemic symptoms)? @ -uncomplicated Side effects of treatment? @ -no Exacerbation, Progression, or Severe Exacerbation] @ -no Poses a threat to life or bodily function? @ -yes Reevaluation #5: 08/17/22 17:46 Differential Syncope: Valvular disease, hypertrophic cardiomyopathy, pulmonary embolism, tamponade, tachycardia, bradycardia, GA, hypovolemia, hemorrhage, dissection, anemia, intracranial hemorrhage, seizure, hypoglycemia, carbon monoxide poisoning, this is not meant to be an all-inclusive list. EKG Findings - EKG Comments: EKG Findings:: EKG is sinus 85 DE 151 QRS 77 QTc 408 - EKG Results: EKG: interpreted by AMANDA Medical Decision Making - Medical Decision Making 52 female DF for evaluation patient Dese for evaluation regards to syncopal event syncopal with resulting collapse and fall in the shower patient did land on his bathtub complaining of left buttox pain and upper hip pain. No significant somatic injury is noted patient has no recurrent syncope here in the ER and can be discharged home - Lab Data Result diagrams: 08/17/22 16:27 08/17/22 16:27 Lab Results 08/17/22 08/17/22 08/17/22 Range/Units 16:18 16:27 16:27 WBC 6.5 (3.8-10.6) k/uL RBC 3.53 L (3.80-5.40) m/uL Hgb 11.4 (11.4-16.0) gm/dL Hct 33.8 L (34.0-46.0) % MCV 95.7 (80.0-100.0) fL MCH 32.3 (25.0-35.0) pg MCHC 33.7 (31.0-37.0) g/dL RDW 14.2 (11.5-15.5) % Plt Count 293 (150-450) k/uL MPV 8.6 Neutrophils % 71 % Lymphocytes % 20 % Monocytes % 4 % Eosinophils % 1 % Basophils % 0 % Neutrophils # 4.6 (1.3-7.7) k/uL Lymphocytes # 1.3 (1.0-4.8) k/uL Monocytes # 0.3 (0-1.0) k/uL Eosinophils # 0.1 (0-0.7) k/uL Basophils # 0.0 (0-0.2) k/uL PT 9.9 (9.0-12.0) sec INR 0.9 (<1.2) APTT 21.3 L (22.0-30.0) sec D-Dimer 0.26 (<0.60) mg/L FEU Sodium (137-145) mmol/L Potassium (3.5-5.1) mmol/L Chloride (98-107) mmol/L Carbon Dioxide (22-30) mmol/L Anion Gap mmol/L BUN (7-17) mg/dL Creatinine (0.52-1.04) mg/dL Est GFR (CKD-EPI)AfAm (>60 ml/min/1.73 sqM) Est GFR (CKD-EPI)NonAf (>60 ml/min/1.73 sqM) Glucose (74-99) mg/dL Calcium (8.4-10.2) mg/dL Phosphorus (2.5-4.5) mg/dL Magnesium (1.6-2.3) mg/dL Total Bilirubin (0.2-1.3) mg/dL AST (14-36) U/L ALT (4-34) U/L Alkaline Phosphatase (38-126) U/L Troponin I (0.000-0.034) ng/mL NT-Pro-B Natriuret Pep pg/mL Total Protein (6.3-8.2) g/dL Albumin (3.5-5.0) g/dL Urine Color Colorless Urine Appearance Clear (Clear) Urine pH 5.5 (5.0-8.0) Ur Specific [place] 1.004 (1.001-1.035) Urine Protein Negative (Negative) Urine Glucose (UA) Negative (Negative) Urine Ketones Negative (Negative) Urine Blood Negative (Negative) Urine Nitrite Negative (Negative) Urine Bilirubin Negative (Negative) Urine Urobilinogen <2.0 (<2.0) mg/dL Ur Leukocyte Esterase Negative (Negative) 08/17/22 08/17/22 08/17/22 Range/Units 16:27 16:27 16:27 WBC (3.8-10.6) k/uL RBC (3.80-5.40) m/uL Hgb (11.4-16.0) gm/dL Hct (34.0-46.0) % MCV (80.0-100.0) fL MCH (25.0-35.0) pg MCHC (31.0-37.0) g/dL RDW (11.5-15.5) % Plt Count (150-450) k/uL MPV Neutrophils % % Lymphocytes % % Monocytes % % Eosinophils % % Basophils % % Neutrophils # (1.3-7.7) k/uL Lymphocytes # (1.0-4.8) k/uL Monocytes # (0-1.0) k/uL Eosinophils # (0-0.7) k/uL Basophils # (0-0.2) k/uL PT (9.0-12.0) sec INR (<1.2) APTT (22.0-30.0) sec D-Dimer (<0.60) mg/L FEU Sodium 139 (137-145) mmol/L Potassium 3.3 L (3.5-5.1) mmol/L Chloride 106 (98-107) mmol/L Carbon Dioxide 24 (22-30) mmol/L Anion Gap 9 mmol/L BUN 6 L (7-17) mg/dL Creatinine 0.67 (0.52-1.04) mg/dL Est GFR (CKD-EPI)AfAm >90 (>60 ml/min/1.73 sqM) Est GFR (CKD-EPI)NonAf >90 (>60 ml/min/1.73 sqM) Glucose 101 H (74-99) mg/dL Calcium 8.5 (8.4-10.2) mg/dL Phosphorus 3.9 (2.5-4.5) mg/dL Magnesium 1.8 (1.6-2.3) mg/dL Total Bilirubin 0.3 (0.2-1.3) mg/dL AST 24 (14-36) U/L ALT 28 (4-34) U/L Alkaline Phosphatase 150 H (38-126) U/L Troponin I <0.012 (0.000-0.034) ng/mL NT-Pro-B Natriuret Pep 217 pg/mL Total Protein 6.4 (6.3-8.2) g/dL Albumin 3.9 (3.5-5.0) g/dL Urine Color Urine Appearance (Clear) Urine pH (5.0-8.0) Ur Specific [place] (1.001-1.035) Urine Protein (Negative) Urine Glucose (UA) (Negative) Urine Ketones (Negative) Urine Blood (Negative) Urine Nitrite (Negative) Urine Bilirubin (Negative) Urine Urobilinogen (<2.0) mg/dL Ur Leukocyte Esterase (Negative) - Radiology Data Radiology results: report reviewed (CT brain C-spine chest and pelvis x-ray negative for traumatic injury), image reviewed Disposition Clinical Impression: Fall, Back pain, Syncope, Left buttock pain, Contusion, buttock Disposition: HOME SELF-CARE Condition: Good Instructions (If sedation given, give patient instructions): Fall Prevention (ED), Syncope (ED), Contusion in Adults (ED) Is patient prescribed a controlled substance at d/c from ED?: No Referrals: None,Stated [Primary Care Provider] - 1-2 days Time of Disposition: 17:45
[2022-08-17 16:37] LABS: Appearance,Urine Clear (Clear); Bilirubin,Urine Negative (Negative); Blood,Urine Negative (Negative); Color,Urine Colorless; Glucose,Urine (UA) Negative (Negative); Ketones,Urine Negative (Negative); Leukocyte Esterase,Urine Negative (Negative); Nitrite,Urine Negative (Negative); PH, Urine 5.5 (5.0-8.0); Protein,Urine Negative (Negative); Specific Gravity,Urine 1.004 (1.001-1.035); Urobilinogen,Urine <2.0 mg/dL (<2.0)
[2022-08-17 16:37] LABS: Basophils % (A) 0 %; Eosinophils # (A) 0.1 k/uL (0-0.7); Eosinophils % (A) 1 %; HCT 33.8 % (34.0-46.0); HGB 11.4 gm/dL (11.4-16.0); Lymphocytes # (A) 1.3 k/uL (1.0-4.8); Lymphocytes % (A) 20 %; MCH 32.3 pg (25.0-35.0); MCHC 33.7 g/dL (31.0-37.0); MCV 95.7 fL (80.0-100.0); Mean Platelet Volume 8.6; Monocytes # (A) 0.3 k/uL (0-1.0); Monocytes % (A) 4 %; Neutrophils # (A) 4.6 k/uL (1.3-7.7); Neutrophils % (A) 71 %; Platelet Count 293 k/uL (150-450); RBC 3.53 m/uL (3.80-5.40); RDW 14.2 % (11.5-15.5); WBC 6.5 k/uL (3.8-10.6)
[2022-08-17 16:53] LABS: ALT 28 U/L (4-34); AST 24 U/L (14-36); African American GFR (CKD) >90 (>60 ml/min/1.73 sqM); Albumin 3.9 g/dL (3.5-5.0); Alkaline Phosphatase 150 U/L (38-126); Anion Gap 9 mmol/L; Blood Urea Nitrogen 6 mg/dL (7-17); Calcium 8.5 mg/dL (8.4-10.2); Carbon Dioxide 24 mmol/L (22-30); Chloride 106 mmol/L (98-107); Glucose 101 mg/dL (74-99); INR 0.9 (<1.2); Magnesium 1.8 mg/dL (1.6-2.3); Non-African American GFR(CKD) >90 (>60 ml/min/1.73 sqM); Partial Thromboplastin Time 21.3 sec (22.0-30.0); Phosphorus 3.9 mg/dL (2.5-4.5); Potassium 3.3 mmol/L (3.5-5.1); Prothrombin Time 9.9 sec (9.0-12.0); Sodium 139 mmol/L (137-145); Total Bilirubin 0.3 mg/dL (0.2-1.3); Total Protein 6.4 g/dL (6.3-8.2)
--- NOTE | 2022-08-17 17:09 | CT ---
EXAMINATION TYPE: CT brain lawandaine wo con DATE OF EXAM: 08/17/2022 COMPARISON: 08/17/2022 HISTORY: fall.syncope CT DLP: [address] Brain: Unenhanced CT of the brain was performed. The ventricles, basal cisterns and sulci overlying the cerebral convexities demonstrate a normal appe arance. There is no evidence for intracranial hemorrhage or sulcal effacement. No mass effects are seen. If symptoms persist consider MRI. Osseous calvarium is intact. IMPRESSION: No acute intracranial process CT Cervical Spine: Unenhanced CT of the cervical spine was performed with bone and soft tissue window settings submitted . Coronal and sagittal reconstruction is obtained. There is normal alignment and prevertebral soft tissues. I do not see evidence for fracture or sublu xation. No significant degenerative changes are present. The lung apices are clear. IMPRESSION: No evidence for acute fracture or subluxation of the cervical spine.
--- NOTE | 2022-08-17 17:13 | XR ---
EXAMINATION TYPE: XR pelvis AP view DATE OF EXAM: 08/17/2022 CLINICAL HISTORY: pain TECHNIQUE: Single view the pelvis is submitted. FINDINGS: No evidence for fracture, dislocation or bony lesion. Joint spaces are well-preserved. S I joints appear symmetric. IMPRESSION: 1. No acute fracture or dislocation seen. ICD 10 NO FRACTURE, INITIAL EVALUATION
--- NOTE | 2022-08-17 17:15 | XR ---
EXAMINATION TYPE: XR chest 1V DATE OF EXAM: 08/17/2022 COMPARISON: 06/26/2022 INDICATION: Fall, syncope TECHNIQUE: Single frontal view of the chest is obtained. FINDINGS: The heart size is normal. The pulmonary vasculature is normal. The lungs are clear. There is a port present on the left with the tip in the superior vena cava region. No acute posttraum atic changes evident. IMPRESSION: 1. No acute pulmonary process.
[2022-08-17 18:36] VITALS: BP 134/97; PULSE 104; RESP 20
== END 2022-08-17 18:47 | disposition home or self-care (01) ==
LOC: EC 14:46
DX: S30.0XXA Contusion of lower back and pelvis, initial encounter (principal); S70.02XA Contusion of left hip, initial encounter; I10 Essential (primary) hypertension; E78.5 Hyperlipidemia, unspecified; F31.9 Bipolar disorder, unspecified; F41.9 Anxiety disorder, unspecified; Z79.02 Long term (current) use of antithrombotics/antiplatelets; Z79.82 Long term (current) use of aspirin; Z79.899 Other long term (current) drug therapy; Z88.0 Allergy status to penicillin; Z88.1 Allergy status to other antibiotic agents; Z88.2 Allergy status to sulfonamides; Z88.5 Allergy status to narcotic agent; Z88.6 Allergy status to analgesic agent; Z88.8 Allergy status to other drugs, medicaments and biological substances; Z91.040 Latex allergy status; Z90.49 Acquired absence of other specified parts of digestive tract; Z87.891 Personal history of nicotine dependence; W18.2XXA Fall in (into) shower or empty bathtub, initial encounter
CPT/HCPCS: 36415; 85379; 83880; 80053; 83735; 84100; 84484; 85025; 85610; 85730; 81003; 72170; 71045; 72125; 70450; 99284; 96374; 96375; 96361 ×2; J2270; J2405

== ENCOUNTER 2022-08-24 18:51 | Emergency (ER) | payer OTHER ==
[2022-08-24 18:55] VITALS: TEMP 98.7
[2022-08-24] MEDS ORDERED: SODIUM CHLORIDE 0.9% 500 ML 500 ML IV STA (19:32)
[2022-08-24] MEDS ORDERED: diphenhydrAMINE 50 MG/ML 1 ML VIAL IVP STA (19:32)
[2022-08-24] MEDS ORDERED: ONDANSETRON 4 MG/2 ML VIAL IVP STA (19:32)
[2022-08-24] MEDS ORDERED: HYDROmorphone 1 MG/ML 1 ML SYRINGE IVP STA (19:32)
--- NOTE | 2022-08-24 19:33 | ED ---
Headache HPI - General Chief Complaint: Syncope Stated Complaint: Syncope; head injury; on blood thinners Time Seen by Provider: 08/24/22 19:14 Source: RN notes reviewed, old records reviewed Mode of arrival: wheelchair Limitations: no limitations - History of Present Illness Initial Comments: This is a 52-year-old female. She presents today for evaluation of headache migraine headache typical migraine headache and patient is well-known to this facility. She states headache was so bad she passed out will she was given record DF for treatment of her headache. She has persistent active nausea vomiting currently. MD Complaint: headache, "migraine" -: hour(s) Onset Description: gradual Location: right, left, frontal Severity: moderate Severity scale (1-10): 4 Quality: aching, throbbing, pulsatile Consistency: constant Improves With: nothing Worsens With: none Context: recent URI Associated Symptoms: nausea Other Symptoms: other (0) Treatments Prior to Arrival: none - Related Data Home Medications Medication Instructions Recorded Confirmed Omeprazole [PriLOSEC] 20 mg PO BID 12/15/20 08/29/22 Thiamine [Vitamin B-1] 100 mg PO HS 01/04/21 08/29/22 Atorvastatin [Lipitor] 40 mg PO HS 07/20/21 08/29/22 DULoxetine HCL [Cymbalta] 60 mg PO HS 07/20/21 08/29/22 Atogepant [Qulipta] 60 mg PO HS 06/03/22 08/29/22 Cyclobenzaprine [Flexeril] 10 mg PO TID PRN 06/03/22 08/29/22 HYDROcodone/APAP 10-325MG [[place] 1 tab PO TID PRN 06/03/22 08/29/22 10-325] Spironolactone [Aldactone] 50 mg PO HS 06/04/22 08/29/22 Albuterol Inhaler [Ventolin Hfa 2 puff INHALATION RT-QID PRN 08/29/22 08/29/22 Inhaler] Aspirin 81 mg PO HS 08/29/22 08/29/22 Clopidogrel [Plavix] 75 mg PO HS 08/29/22 08/29/22 Famotidine [Pepcid] 20 mg PO BID 08/29/22 08/29/22 Hyoscyamine Sulfate [Levsin-Sl] 0.125 mg SL Q4H PRN 08/29/22 08/29/22 Metoprolol Succinate (ER) [Toprol 25 mg PO HS 08/29/22 08/29/22 XL] Previous Rx's Medication Instructions Recorded Lacosamide [Vimpat] 100 mg PO BID 7 Days #14 tab 01/16/21 Ondansetron Odt [Zofran ODT] 4 mg PO Q8HR PRN #9 tab 06/26/22 Allergies Allergy/AdvReac Type Severity Reaction Status Date / Time dihydroergotamine Allergy Unknown Unknown Verified 08/29/22 18:18 [From Migranal] buprenorphine Allergy Rash/Hives Verified 08/29/22 18:18 gabapentin [From Neurontin] Allergy Itching/Swe Verified 08/29/22 18:18 lling latex Allergy Anaphylaxis Verified 08/29/22 18:18 naproxen [From Naprosyn] Allergy Anaphylaxis Verified 08/29/22 18:18 Penicillins Allergy Anaphylaxis Verified 08/29/22 18:18 prednisone Allergy Swelling Verified 08/29/22 18:18 quetiapine fumarate Allergy Itching, Verified 08/29/22 18:18 [From Seroquel] leg cramps rofecoxib [From Vioxx] Allergy Itching, Verified 08/29/22 18:18 leg cramps terfenadine [From Seldane] Allergy Rash/Hives Verified 08/29/22 18:18 tramadol Allergy Nausea & Verified 08/29/22 18:18 Vomiting/LEG CRAMPS/HEART FLUTTERS calcium carbonate [From DHEA] AdvReac Chest Pain Verified 08/29/22 18:18 calcium phosphate,dibasic AdvReac Chest Pain Verified 08/29/22 18:18 [From DHEA] clindamycin AdvReac muscle Verified 08/29/22 18:18 cramps clonidine AdvReac fast Verified 08/29/22 18:18 heartbeat, migraine dextromethorphan HBr AdvReac face/neck Verified 08/29/22 18:18 [From NyQuil] flushing diazepam [From Valium] AdvReac Nausea & Verified 08/29/22 18:18 Vomiting divalproex sodium AdvReac Nausea & Verified 08/29/22 18:18 [From Depakote] Vomiting doxylamine [From NyQuil] AdvReac face "beet Verified 08/29/22 18:18 red", elevated temp. ibuprofen [From Motrin] AdvReac abdominal Verified 08/29/22 18:18 & muscle cramps indomethacin [From Indocin] AdvReac Abdominal Verified 08/29/22 18:18 Pain,N/V ketorolac tromethamine AdvReac "built up Verified 08/29/22 18:18 [From Toradol] in system", had to be given something to reverse lorazepam [From Ativan] AdvReac Nausea & Verified 08/29/22 18:18 Vomiting memantine [From Namenda] AdvReac Itching Verified 08/29/22 18:18 metoclopramide HCl AdvReac muscle Verified 08/29/22 18:18 [From Reglan] cramps nortriptyline [From Pamelor] AdvReac Chest Pain Verified 08/29/22 18:18 prasterone (DHEA) [From DHEA] AdvReac Chest Pain Verified 08/29/22 18:18 prochlorperazine AdvReac leg Verified 08/29/22 18:18 [From Compazine] cramping propranolol AdvReac Chest Pain Verified 08/29/22 18:18 pseudoephedrine HCl AdvReac face "beet Verified 08/29/22 18:18 [From NyQuil] red", elevated temp. quetiapine [From Seroquel] AdvReac leg Verified 08/29/22 18:18 cramping sumatriptan [From Imitrex] AdvReac migrane Verified 08/29/22 18:18 sumatriptan succinate AdvReac migrane Verified 08/29/22 18:18 [From Imitrex] topiramate [From Topamax] AdvReac "built up Verified 08/29/22 18:18 in system", had to be given something to reverse trazodone AdvReac "built up Verified 08/29/22 18:18 in system", had to be given something to reverse zolpidem tartrate AdvReac "Became Verified 08/29/22 18:18 [From Ambien] violent with no memory" zonisamide [From Zonegran] AdvReac inability Verified 08/29/22 18:18 to eat artificial sweetener AdvReac SEVERE Uncoded 08/29/22 18:18 MIGRAINE HEADACHE prosyn AdvReac Itching Uncoded 08/29/22 18:18 Review of Systems ROS Statement: Those systems with pertinent positive or pertinent negative responses have been documented in the HPI. ROS Other: All systems not noted in ROS Statement are negative. Past Medical History Past Medical History: Hyperlipidemia, Hypertension, Seizure Disorder Additional Past Medical History / Comment(s): Migraines, viral meningitis x3 as a child, 1995, 2000, chronic back pain, nerve blocks 08/2016 and 12/2016. Last seizure 10/10/2020, "ABSENT SEIZURES. HX TACHYCARDIA, GBS/CIPD, PTSD. History of Any Multi-Drug Resistant Organisms: None Reported Past Surgical History: Appendectomy, Section, Cholecystectomy, Heart Catheterization With Stent, Hernia Repair, Hysterectomy, Orthopedic Surgery, Tonsillectomy, Tubal Ligation Additional Past Surgical History / Comment(s): Hiatal Hernia, umbilical hernia repair, left rotator cuff repair, bilateral knee scopes, pain clinic procedures-occipital nerve block. abd exploratory sx(endometreosis), 3 abd scopes 1981, 1989, 1991), lumbar puncture. EGD. nerve biopsy, salvalry gland biospy Past Anesthesia/Blood Transfusion Reactions: No Reported Reaction Additional Past Anesthesia/Blood Transfusion Reaction / Comment(s): Claustrophobic Date of Last Stent Placement:: 06/03/2022 Past Psychological History: Anxiety, Bipolar, Panic Disorder, PTSD Smoking Status: Former smoker Past Alcohol Use History: None Reported Past Drug Use History: None Reported - Past Family History Mother Family Medical History: Cancer, Dementia, Diabetes Mellitus, GERD/Reflux, Hyperlipidemia, Hypertension, Thyroid Disorder Additional Family Medical History / Comment(s): CABG Father History Unknown: Yes Family Medical History: No Reported History General Exam Limitations: no limitations General appearance: alert, in no apparent distress Head exam: Present: atraumatic, normocephalic, normal inspection Eye exam: Present: normal appearance, PERRL, EOMI. Absent: scleral icterus, conjunctival injection, periorbital swelling ENT exam: Present: normal exam, mucous membranes moist Neck exam: Present: normal inspection. Absent: tenderness, meningismus, lymphadenopathy Respiratory exam: Present: normal lung sounds bilaterally. Absent: respiratory distress, wheezes, rales, rhonchi, stridor Cardiovascular Exam: Present: regular rate, normal rhythm, normal heart sounds. Absent: systolic murmur, diastolic murmur, rubs, gallop, clicks GI/Abdominal exam: Present: soft, normal bowel sounds. Absent: distended, tenderness, guarding, rebound, rigid Extremities exam: Present: normal inspection, full ROM, normal capillary refill. Absent: tenderness, pedal edema, joint swelling, calf tenderness Back exam: Present: normal inspection Neurological exam: Present: alert, oriented X3, CN II-XII intact Psychiatric exam: Present: normal affect, normal mood Skin exam: Present: warm, dry, intact, normal color. Absent: rash Course Vital Signs 08/24/22 08/24/22 18:52 21:35 Temperature 98.7 F Pulse Rate 104 H 92 Respiratory 20 16 Rate Blood Pressure 147/91 120/68 O2 Sat by Pulse 100 96 Oximetry - Reevaluation(s) Reevaluation #1: 08/24/22 19:48 Medical record is reviewed Reevaluation #2: 08/24/22 19:48 Patient symptoms are improved Reevaluation #3: 08/24/22 19:48 Patient informed results and questions answered Reevaluation #4: 08/24/22 19:48 Was pt. sent in by a medical professional or institution? @ -no Did you speak to anyone other than the patient for history? @ -no Did you review nursing and triage notes? @ -agree Were old charts reviewed? @ -Gas including multiple prior hospital admissions and ER visits for vertigo, CT scans, evaluation regarding syncope Differential Diagnosis? @ -prior EKG interpreted by me (3pts min.)? @ -yes X-rays interpreted by me (1pt min.)? @ -no CT interpreted by me (1pt min.)? @ -no U/S interpreted by me (1pt. min.)? @ -no What testing was considered but not performed? (CT, X-rays, U/S, labs)? Why? @ -no What meds were considered but not given? Why? @ -no Did you discuss the management of the patient with other professionals? @ -no Did you reconcile home meds? @ -no Was smoking cessation discussed for >3mins.? @ -no Was critical care preformed (if so, how long)? @ -no Were there social determinants of health that impacted care today? How? (Homelessness, low income, unemployed, alcoholism, drug addiction, transportation, low edu. Level, literacy, decrease access to med. care, senior care, rehab)? @ -no Was there de-escalation of care discussed even if they declined? (Discuss DNR or withdrawal of care, Hospice)? @ -no What co-morbidities impacted this encounter? (DM, HTN, Smoking, COPD, CAD, Cancer, CVA, Hep., AIDS, mental health diagnosis, sleep apnea, morbid obesity)? @ -none Was patient admitted / discharged? @ -52 female to the emergency department for evaluation of migraine headache acute on chronic headache is resolved, recurrent syncope without syncope here in the ER, patient feels well and can be discharged home Discharged Undiagnosed new problem with uncertain prognosis? @ -no Drug Therapy requiring intensive monitoring for toxicity (Heparin, Nitro, Insulin, Cardizem)? @ -no Were any procedures done? @ -no Diagnosis/symptom? @ -Migraine headache with syncope Acute, or Chronic, or Acute on Chronic? @ -Acute on chronic Uncomplicated (without systemic symptoms) or Complicated (systemic symptoms)? @ -uncomplicated Side effects of treatment? @ -no Exacerbation, Progression, or Severe Exacerbation] @ -no Poses a threat to life or bodily function? @ -no Reevaluation #5: 08/24/22 19:48 Differential Headache: Migraine, tension, cluster, carbon monoxide, central venous thrombosis, pension karma temporal arteritis, acute closure glaucoma, intercranial hemorrhage, mastoiditis, sinusitis, head injury, this is not meant to be an all-inclusive list. Disposition Clinical Impression: Vasovagal syncope, Migraine, Headache Disposition: HOME SELF-CARE Condition: Fair Is patient prescribed a controlled substance at d/c from ED?: No Referrals: José Reece MD [Primary Care Provider] - 1-2 days Time of Disposition: 20:30
[2022-08-24] MEDS ORDERED: HEPARIN SODIUM 1,000 UN/ML (10ML VL) IVP STA (21:19)
[2022-08-24 21:41] VITALS: BP 120/68; PULSE 92; RESP 16
== END 2022-08-24 21:35 | disposition home or self-care (01) ==
LOC: EC 18:51
DX: G43.909 Migraine, unspecified, not intractable, without status migrainosus (principal); R55 Syncope and collapse; I10 Essential (primary) hypertension; E78.5 Hyperlipidemia, unspecified; F31.9 Bipolar disorder, unspecified; F41.9 Anxiety disorder, unspecified; Z79.01 Long term (current) use of anticoagulants; Z79.82 Long term (current) use of aspirin; Z79.899 Other long term (current) drug therapy; Z87.891 Personal history of nicotine dependence; Z88.0 Allergy status to penicillin; Z88.1 Allergy status to other antibiotic agents; Z88.2 Allergy status to sulfonamides; Z88.5 Allergy status to narcotic agent; Z88.6 Allergy status to analgesic agent; Z88.8 Allergy status to other drugs, medicaments and biological substances; Z91.040 Latex allergy status; Z90.49 Acquired absence of other specified parts of digestive tract
CPT/HCPCS: 99284; 96374; 96375 ×4; J1200; J3360; J2405; J1644; J1170

== ENCOUNTER 2022-08-29 16:25 | Observation (INO) | payer OTHER ==
[2022-08-29] MEDS ORDERED: SODIUM CHLORIDE 0.9% 1,000 ML IV STA ×2 (17:14)
--- NOTE | 2022-08-29 17:15 | ED ---
Syncope HPI - General Chief Complaint: Syncope Stated Complaint: PASSED OUT-HEAD INJURY Time Seen by Provider: 08/29/22 16:45 Source: patient, RN notes reviewed, old records reviewed Mode of arrival: ambulatory Limitations: no limitations - History of Present Illness Initial Comments: This is a 52-year-old female to the ER. She presents today for evaluation of a syncopal event she's also complaining of headache, migraine headache with recent syncopal event syncopal event causing patient to have syncope and collapse. Patient has no other complaints no headache chest pain shortness of breath or abdominal pain. Patient has had no prior syncopal evaluation. Patient does have chronic migraines and this is her baseline migraine headache. MD Complaint: loss of consciousness, felt faint, collapsed -: hour(s) Prodromal Symptoms: headache, lightheaded, palpitations -: second(s) Witnessed: yes - by bystander Injuries Sustained Associated with Event: None Current Symptoms: lightheaded, headache History: previous syncopal episode Context: during exertion Treatments Prior to Arrival: none - Related Data Home Medications Medication Instructions Recorded Confirmed Omeprazole [PriLOSEC] 20 mg PO BID 12/15/20 08/29/22 Thiamine [Vitamin B-1] 100 mg PO HS 01/04/21 08/29/22 Atorvastatin [Lipitor] 40 mg PO HS 07/20/21 08/29/22 DULoxetine HCL [Cymbalta] 60 mg PO HS 07/20/21 08/29/22 Atogepant [Qulipta] 60 mg PO HS 06/03/22 08/29/22 Cyclobenzaprine [Flexeril] 10 mg PO TID PRN 06/03/22 08/29/22 HYDROcodone/APAP 10-325MG [[place] 1 tab PO TID PRN 06/03/22 08/29/22 10-325] Spironolactone [Aldactone] 50 mg PO HS 06/04/22 08/29/22 Albuterol Inhaler [Ventolin Hfa 2 puff INHALATION RT-QID PRN 08/29/22 08/29/22 Inhaler] Aspirin 81 mg PO HS 08/29/22 08/29/22 Clopidogrel [Plavix] 75 mg PO HS 08/29/22 08/29/22 Famotidine [Pepcid] 20 mg PO BID 08/29/22 08/29/22 Hyoscyamine Sulfate [Levsin-Sl] 0.125 mg SL Q4H PRN 08/29/22 08/29/22 Metoprolol Succinate (ER) [Toprol 25 mg PO HS 08/29/22 08/29/22 XL] Previous Rx's Medication Instructions Recorded Lacosamide [Vimpat] 100 mg PO BID 7 Days #14 tab 01/16/21 Ondansetron Odt [Zofran ODT] 4 mg PO Q8HR PRN #9 tab 06/26/22 Allergies Allergy/AdvReac Type Severity Reaction Status Date / Time dihydroergotamine Allergy Unknown Unknown Verified 08/29/22 18:18 [From Migranal] buprenorphine Allergy Rash/Hives Verified 08/29/22 18:18 gabapentin [From Neurontin] Allergy Itching/Swe Verified 08/29/22 18:18 lling latex Allergy Anaphylaxis Verified 08/29/22 18:18 naproxen [From Naprosyn] Allergy Anaphylaxis Verified 08/29/22 18:18 Penicillins Allergy Anaphylaxis Verified 08/29/22 18:18 prednisone Allergy Swelling Verified 08/29/22 18:18 quetiapine fumarate Allergy Itching, Verified 08/29/22 18:18 [From Seroquel] leg cramps rofecoxib [From Vioxx] Allergy Itching, Verified 08/29/22 18:18 leg cramps terfenadine [From Seldane] Allergy Rash/Hives Verified 08/29/22 18:18 tramadol Allergy Nausea & Verified 08/29/22 18:18 Vomiting/LEG CRAMPS/HEART FLUTTERS calcium carbonate [From DHEA] AdvReac Chest Pain Verified 08/29/22 18:18 calcium phosphate,dibasic AdvReac Chest Pain Verified 08/29/22 18:18 [From DHEA] clindamycin AdvReac muscle Verified 08/29/22 18:18 cramps clonidine AdvReac fast Verified 08/29/22 18:18 heartbeat, migraine dextromethorphan HBr AdvReac face/neck Verified 08/29/22 18:18 [From NyQuil] flushing diazepam [From Valium] AdvReac Nausea & Verified 08/29/22 18:18 Vomiting divalproex sodium AdvReac Nausea & Verified 08/29/22 18:18 [From Depakote] Vomiting doxylamine [From NyQuil] AdvReac face "beet Verified 08/29/22 18:18 red", elevated temp. ibuprofen [From Motrin] AdvReac abdominal Verified 08/29/22 18:18 & muscle cramps indomethacin [From Indocin] AdvReac Abdominal Verified 08/29/22 18:18 Pain,N/V ketorolac tromethamine AdvReac "built up Verified 08/29/22 18:18 [From Toradol] in system", had to be given something to reverse lorazepam [From Ativan] AdvReac Nausea & Verified 08/29/22 18:18 Vomiting memantine [From Namenda] AdvReac Itching Verified 08/29/22 18:18 metoclopramide HCl AdvReac muscle Verified 08/29/22 18:18 [From Reglan] cramps nortriptyline [From Pamelor] AdvReac Chest Pain Verified 08/29/22 18:18 prasterone (DHEA) [From DHEA] AdvReac Chest Pain Verified 08/29/22 18:18 prochlorperazine AdvReac leg Verified 08/29/22 18:18 [From Compazine] cramping propranolol AdvReac Chest Pain Verified 08/29/22 18:18 pseudoephedrine HCl AdvReac face "beet Verified 08/29/22 18:18 [From NyQuil] red", elevated temp. quetiapine [From Seroquel] AdvReac leg Verified 08/29/22 18:18 cramping sumatriptan [From Imitrex] AdvReac migrane Verified 08/29/22 18:18 sumatriptan succinate AdvReac migrane Verified 08/29/22 18:18 [From Imitrex] topiramate [From Topamax] AdvReac "built up Verified 08/29/22 18:18 in system", had to be given something to reverse trazodone AdvReac "built up Verified 08/29/22 18:18 in system", had to be given something to reverse zolpidem tartrate AdvReac "Became Verified 08/29/22 18:18 [From Ambien] violent with no memory" zonisamide [From Zonegran] AdvReac inability Verified 08/29/22 18:18 to eat artificial sweetener AdvReac SEVERE Uncoded 08/29/22 18:18 MIGRAINE HEADACHE prosyn AdvReac Itching Uncoded 08/29/22 18:18 Review of Systems ROS Statement: Those systems with pertinent positive or pertinent negative responses have been documented in the HPI. ROS Other: All systems not noted in ROS Statement are negative. Past Medical History Past Medical History: Hyperlipidemia, Hypertension, Seizure Disorder Additional Past Medical History / Comment(s): Migraines, viral meningitis x3 as a child, 1995, 2000, chronic back pain, nerve blocks 08/2016 and 12/2016. Last seizure 10/10/2020, "ABSENT SEIZURES. HX TACHYCARDIA, GBS/CIPD, PTSD. History of Any Multi-Drug Resistant Organisms: None Reported Past Surgical History: Appendectomy, Section, Cholecystectomy, Heart Catheterization With Stent, Hernia Repair, Hysterectomy, Orthopedic Surgery, Ton sillectomy, Tubal Ligation Additional Past Surgical History / Comment(s): Hiatal Hernia, umbilical hernia repair, left rotator cuff repair, bilateral knee scopes, pain clinic procedures- occipital nerve block. abd exploratory sx(endometreosis), 3 abd scopes 1981, 1989, 1991), lumbar puncture. EGD. nerve biopsy, salvalry gland biospy Past Anesthesia/Blood Transfusion Reactions: No Reported Reaction Additional Past Anesthesia/Blood Transfusion Reaction / Comment(s): Claustrophobic Date of Last Stent Placement:: 06/03/2022 Past Psychological History: Anxiety, Bipolar, Panic Disorder, PTSD Smoking Status: Former smoker Past Alcohol Use History: None Reported Past Drug Use History: None Reported - Past Family History Mother Family Medical History: Cancer, Dementia, Diabetes Mellitus, GERD/Reflux, Hyperlipidemia, Hypertension, Thyroid Disorder Additional Family Medical History / Comment(s): CABG Father History Unknown: Yes Family Medical History: No Reported History General Exam Limitations: no limitations General appearance: alert, in no apparent distress Head exam: Present: atraumatic, normocephalic, normal inspection Eye exam: Present: normal appearance, PERRL, EOMI. Absent: scleral icterus, conjunctival injection, periorbital swelling ENT exam: Present: normal exam, mucous membranes moist Neck exam: Present: normal inspection. Absent: tenderness, meningismus, lymphadenopathy Respiratory exam: Present: normal lung sounds bilaterally. Absent: respiratory distress, wheezes, rales, rhonchi, stridor Cardiovascular Exam: Present: regular rate, normal rhythm, normal heart sounds. Absent: systolic murmur, diastolic murmur, rubs, gallop, clicks GI/Abdominal exam: Present: soft, normal bowel sounds. Absent: distended, tenderness, guarding, rebound, rigid Extremities exam: Present: normal inspection, full ROM, normal capillary refill. Absent: tenderness, pedal edema, joint swelling, calf tenderness Back exam: Present: normal inspection Neurological exam: Present: alert, oriented X3, CN II-XII intact Psychiatric exam: Present: normal affect, normal mood Skin exam: Present: warm, dry, intact, normal color. Absent: rash Course Vital Signs 08/29/22 16:40 Temperature 99.0 F Pulse Rate 91 Respiratory 18 Rate Blood Pressure 166/107 O2 Sat by Pulse 100 Oximetry - Reevaluation(s) Reevaluation #1: 08/29/22 19:34 Medical records reviewed Reevaluation #2: 08/29/22 19:34 Patient's headache is resolved Reevaluation #3: 08/29/22 19:34 Patient informed of results questions answered Reevaluation #4: 08/29/22 19:34 Was pt. sent in by a medical professional or institution? @ -no Did you speak to anyone other than the patient for history? @ -no Did you review nursing and triage notes? @ -agree Were old charts reviewed? @ -no Differential Diagnosis? @ -prior EKG interpreted by me (3pts min.)? @ -yes X-rays interpreted by me (1pt min.)? @ -yes CT interpreted by me (1pt min.)? @ -no U/S interpreted by me (1pt. min.)? @ -no What testing was considered but not performed? (CT, X-rays, U/S, labs)? Why? @ -no What meds were considered but not given? Why? @ -no Did you discuss the management of the patient with other professionals? @ -no Did you reconcile home meds? @ -no Was smoking cessation discussed for >3mins.? @ -no Was critical care preformed (if so, how long)? @ -no Were there social determinants of health that impacted care today? How? (Homelessness, low income, unemployed, alcoholism, drug addiction, transportation, low edu. Level, literacy, decrease access to med. care, [facility], rehab)? @ -no Was there de-escalation of care discussed even if they declined? (Discuss DNR or withdrawal of care, Hospice)? @ -no What co-morbidities impacted this encounter? (DM, HTN, Smoking, COPD, CAD, Cancer, CVA, Hep., AIDS, mental health diagnosis, sleep apnea, morbid obesity)? @ -none Was patient admitted / discharged? @ - Undiagnosed new problem with uncertain prognosis? @ -no Drug Therapy requiring intensive monitoring for toxicity (Heparin, Nitro, Insuli n, Cardizem)? @ -no Were any procedures done? @ -no Diagnosis/symptom? @ - Acute, or Chronic, or Acute on Chronic? @ -no Uncomplicated (without systemic symptoms) or Complicated (systemic symptoms)? @ -uncomplicated Side effects of treatment? @ -no Exacerbation, Progression, or Severe Exacerbation] @ -no Poses a threat to life or bodily function? @ -yes Reevaluation #5: 08/29/22 19:34 Differential Headache: Migraine, tension, cluster, carbon monoxide, central venous thrombosis, pension karma temporal arteritis, acute closure glaucoma, intercranial hemorrhage, mastoiditis, sinusitis, head injury, this is not meant to be an all-inclusive li . Differential Syncope: Valvular disease, hypertrophic cardiomyopathy, pulmonary embolism, tamponade, tachycardia, bradycardia, [place], hypovolemia, hemorrhage, dissection, anemia, intracranial hemorrhage, seizure, hypoglycemia, carbon monoxide poisoning, this is not meant to be an all-inclusive list. EKG Findings - EKG Comments: EKG Findings:: EKG sinus 81 [place] 151 QRS 77 QTc 4:30 Medical Decision Making - Medical Decision Making 52 female to the emergency department for evaluation of recurrent syncopal event multiple ER visits this week for similar syncope. Patient also has headache migraine headache this patient's baseline migraine headache secondary to patient's multiple syncopal events this week patient will be admitted for syncope evaluation with recent not significant, patient is also having consistent and chronic migraine which will be treated - Lab Data Result diagrams: 08/29/22 18:19 08/29/22 18:19 - EKG Data -: EKG Interpreted by Me (EKG is sinus 81 [place] 151 QRS 77 QTC 4:30) Disposition Clinical Impression: Syncope due to orthostatic hypotension, Fainting spell, Atypical chest pain, Intractable headache, Migraine, Loss of consciousness, Vasovagal syncope, Syncope Disposition: ADMITTED IP TO THIS HOSP Condition: Undetermined Is patient prescribed a controlled substance at d/c from ED?: No Time of Disposition: 18:00
[2022-08-29] MEDS ORDERED: NALOXONE 0.4 MG/ML 1 ML VIAL IV PRN (18:01)
[2022-08-29] MEDS ORDERED: ONDANSETRON 4 MG/2 ML VIAL IVP PRN (18:01)
[2022-08-29] MEDS ORDERED: HYDROmorphone 1 MG/ML 1 ML SYRINGE IVP STA (18:01)
[2022-08-29] MEDS ORDERED: diphenhydrAMINE 50 MG/ML 1 ML VIAL IVP STA (18:01)
[2022-08-29] MEDS ORDERED: ACETAMINOPHEN TAB 325 MG TAB PO PRN (18:01)
[2022-08-29] MEDS ORDERED: PROCHLORPERAZINE INJ 10 MG/2 ML VIAL IVP STA (18:01)
[2022-08-29 18:24] LABS: Basophils % (A) 0 %; Eosinophils # (A) 0.1 k/uL (0-0.7); Eosinophils % (A) 1 %; HCT 36.9 % (34.0-46.0); HGB 12.2 gm/dL (11.4-16.0); Lymphocytes # (A) 1.8 k/uL (1.0-4.8); Lymphocytes % (A) 20 %; MCH 32.5 pg (25.0-35.0); MCV 98.5 fL (80.0-100.0); Mean Platelet Volume 7.8; Monocytes # (A) 0.4 k/uL (0-1.0); Monocytes % (A) 4 %; Neutrophils # (A) 6.3 k/uL (1.3-7.7); Neutrophils % (A) 72 %; Platelet Count 328 k/uL (150-450); RBC 3.74 m/uL (3.80-5.40); RDW 13.9 % (11.5-15.5); WBC 8.8 k/uL (3.8-10.6)
[2022-08-29 18:33] LABS: ALT 22 U/L (4-34); AST 29 U/L (14-36); African American GFR (CKD) >90 (>60 ml/min/1.73 sqM); Albumin 4.3 g/dL (3.5-5.0); Alkaline Phosphatase 136 U/L (38-126); Anion Gap 11 mmol/L; Blood Urea Nitrogen 10 mg/dL (7-17); Calcium 9.2 mg/dL (8.4-10.2); Carbon Dioxide 26 mmol/L (22-30); Chloride 100 mmol/L (98-107); Glucose 84 mg/dL (74-99); Magnesium 1.9 mg/dL (1.6-2.3); Non-African American GFR(CKD) >90 (>60 ml/min/1.73 sqM); Phosphorus 4.1 mg/dL (2.5-4.5); Potassium 3.4 mmol/L (3.5-5.1); Sodium 137 mmol/L (137-145); Total Bilirubin 0.5 mg/dL (0.2-1.3); Total Protein 7.1 g/dL (6.3-8.2)
[2022-08-29 18:36] LABS: INR 0.9 (<1.2); Partial Thromboplastin Time 22.6 sec (22.0-30.0); Prothrombin Time 10.1 sec (9.0-12.0)
--- NOTE | 2022-08-29 20:35 | CT ---
CT CHEST FOR PULMONARY EMBOLISM. EXAMINATION TYPE: CT angio chest DATE OF EXAM: 08/29/2022 INDICATION: SYNCOPE CT DLP: 328.6 mGycm, Automated exposure control for dose reduction was used. CONTRAST: Patient injected with 100ML mL of Isovue 370. COMPARISON: 06/01/2019 TECHNIQUE: CT of the chest is performed on a spiral scan at 2 mm thick sections. Study is performed with intravenous contrast timed for evaluation for pulmonary embolism. This will limit additional po rtions of the evaluation. 3-D MIP images reconstructed by the technologist are reviewed on the compu ter in the coronal and sagittal planes. FINDINGS: No persistent filling defects are evident to suggest an acute pulmonary embolism. No mediastinal or hilar adenopathy enlarged by CT criteria is evident. The ascending aorta diameter at the level of the main pulmonary artery is 3.6 cm. The main pulmonary artery diameter at the bifur cation is 2.5 cm. There is a pleural-based 0.6 cm density posterior left apex. This was present on the comparison study and appears stable within measurement error. Limited CT section through the upper abdomen are unremarkable. IMPRESSIONS: 1. No acute pulmonary embolism. 2. Small posterior left apex density present previously.
[2022-08-29] MEDS: MORPHINE SULFATE 4 MG/ML SYRINGE IV PRN (20:50)
[2022-08-29] MEDS: SODIUM CHLORIDE 0.9% 1,000 ML IV SCH (20:51)
[2022-08-29 23:05] LABS: Appearance,Urine Clear (Clear); Bilirubin,Urine Negative (Negative); Blood,Urine Negative (Negative); Color,Urine Colorless; Glucose,Urine (UA) Negative (Negative); Ketones,Urine Negative (Negative); Leukocyte Esterase,Urine Negative (Negative); Nitrite,Urine Negative (Negative); Protein,Urine Negative (Negative); Specific Gravity,Urine 1.028 (1.001-1.035); Urobilinogen,Urine <2.0 mg/dL (<2.0)
[2022-08-30] MEDS: MORPHINE SULFATE 4 MG/ML SYRINGE IV PRN ×3 (00:42→13:27)
[2022-08-30] MEDS: SODIUM CHLORIDE 0.9% 1,000 ML IV SCH ×2 (04:54→10:27)
[2022-08-30 08:10] VITALS: RESP 16
[2022-08-30] MEDS ORDERED: HYOSCYAMINE SULFATE 0.125 MG TAB SL PRN (08:20)
[2022-08-30] MEDS ORDERED: CYCLOBENZAPRINE 10 MG TAB PO PRN (08:20)
[2022-08-30] MEDS ORDERED: ALBUTEROL HFA INHALER INHALATION PRN (08:20)
[2022-08-30] MEDS ORDERED: ONDANSETRON ODT 4 MG TAB PO PRN (08:20)
[2022-08-30] MEDS ORDERED: SODIUM CHLORIDE 0.9% 1,000 ML IV SCH (09:00)
[2022-08-30] MEDS ORDERED: LACOSAMIDE 50 MG TABLET PO SCH (09:00)
[2022-08-30] MEDS ORDERED: FAMOTIDINE 20 MG TAB PO SCH (09:00)
[2022-08-30] MEDS ORDERED: PANTOPRAZOLE 40 MG TABLET PO SCH (09:00)
[2022-08-30] MEDS ORDERED: IV FLUID CONTINUATION 500 ML IV ONE (09:12)
[2022-08-30] MEDS: HYDROcodone/APAP 10-325MG 1 EACH TAB PO PRN ×2 (10:26→16:39)
--- NOTE | 2022-08-30 11:05 | P.CRDCN ---
History of Present Illness History of present illness: HISTORY OF PRESENT ILLNESS: This is a 52-year-old female with a past medical history significant for coronary artery disease with stenting to the mid LAD, hyperlipidemia, seizure disorder, migraines, anxiety, bipolar disorder, and PTSD. Patient has not yet established care in the office. We have been asked to see the patient in consultation for syncope. Patient examined at the bedside. Patient states that yesterday she was at her daughter's house and was walking to the living room after using the bathroom. She states that she said one or 2 words to her daug hter and then collapsed to the floor. She states the next thing she remembers was she was on the floor and her daughter was asking her if she was okay. She states that she had no warning signs prior to this. She states that she has had multiple episodes of syncope in the past. * EKG reveals sinus mechanism with no signs of acute ischemia * Chest CT: Negative for pulmonary embolism. Small posterior left apex density present previously. * Laboratory data: WBC 8.8. Hemoglobin 12.2. Platelet count 328. D-dimer 0.87. Sodium 137. Potassium 3.4. BUN 10. Creatinine 0.64. Troponin negative 1. ProBNP 321. * Current home cardiac medications include Aldactone 50 mg at night, Plavix 75 mg daily, Lipitor 40 mg at night, aspirin 81 mg at night * Cardiac catheterization history: 06/03/2022 with stenting to the mid LAD REVIEW OF SYSTEMS: At the time of my exam: CONSTITUTIONAL: Denies fever or chills. HEENT: Denies blurred vision, vision changes, or eye pain. Denies hemoptysis CARDIOVASCULAR: Denies chest pain. Denies orthopnea. Denies PND. Denies palpitations RESPIRATORY: Denies shortness of breath. GASTROINTESTINAL: Denies abdominal pain. Denies nausea or vomiting. HEMATOLOGIC: Denies bleeding disorders. GENITOURINARY: Denies any blood in urine. SKIN: Denies pruitis. Denies rash. PHYSICAL EXAM: VITAL SIGNS: Reviewed. GENERAL: Well-developed in no acute distress. HEENT: Head is normocephalic. Pupils are equal, round. Sclerae anicteric. Mucous membranes of the mouth are moist. Neck supple. No JVD or thyromegaly LUNGS: Respirations even and unlabored. Lungs essentially clear to auscultation bilaterally. HEART: Regular rate and rhythm. S1 and S2 heard. ABDOMEN: Soft. Nondistended. Nontender. EXTREMITIES: Normal range of motion. No clubbing or cyanosis. Peripheral pulses intact. No lower extremity edema NEUROLOGIC: Awake and alert. Oriented x 3. ASSESSMENT: Syncope Coronary artery disease with stenting to the mid LAD, May 2022 Hyperlipidemia Seizure disorder Migraines Anxiety Bipolar disorder PTSD PLAN: Obtain 2-D echo to assess cardiac structure and function Continue telemetry monitoring Discontinue Aldactone. Patient states she has been taking this for migraines but has not been helping Patient to undergo tilt table testing If negative, she may be discharged home today in follow-up on an outpatient basis with Dr. Corrales If tilt table is negative, will consider outpatient event monitor Nurse practitioner note has been reviewed by physician. Signing provider agrees with the documented findings, assessment, and plan of care. Past Medical History Past Medical History: Hyperlipidemia, Hypertension, Neurologic Disorder, Seizure Disorder Additional Past Medical History / Comment(s): Migraines, viral meningitis x3 as a child, 1995, 2000, chronic back pain, nerve blocks 08/2016 and 12/2016. Last seizure 10/10/2020, "ABSENT SEIZURES. HX TACHYCARDIA, GBS/CIPD, PTSD. History of Any Multi-Drug Resistant Organisms: None Reported Past Surgical History: Appendectomy, Section, Cholecystectomy, Heart Catheterization With Stent, Hernia Repair, Hysterectomy, Orthopedic Surgery, Tonsillectomy, Tubal Ligation Additional Past Surgical History / Comment(s): Hiatal Hernia, umbilical hernia repair, left rotator cuff repair, bilateral knee scopes, pain clinic procedures-occipital nerve block. abd exploratory sx(endometreosis), 3 abd scopes 1981, 1989, 1991), lumbar puncture. EGD. nerve biopsy, salvalry gland biospy Past Anesthesia/Blood Transfusion Reactions: No Reported Reaction Additional Past Anesthesia/Blood Transfusion Reaction / Comment(s): Claustrophobic Date of Last Stent Placement:: 06/03/2022 Past Psychological History: Anxiety, Bipolar, Panic Disorder, PTSD Additional Psychological History / Comment(s): lives at home. Smoking Status: Former smoker Past Alcohol Use History: None Reported Additional Past Alcohol Use History / Comment(s): SMOKED [id number] Past Drug Use History: None Reported - Past Family History Mother Family Medical History: Cancer, Dementia, Diabetes Mellitus, GERD/Reflux, Hyperlipidemia, Hypertension, Thyroid Disorder Additional Family Medical History / Comment(s): CABG Father History Unknown: Yes Family Medical History: No Reported History Medications and Allergies Home Medications Medication Instructions Recorded Confirmed Type Omeprazole [PriLOSEC] 20 mg PO BID 12/15/20 08/29/22 History Thiamine [Vitamin B-1] 100 mg PO HS 01/04/21 08/29/22 History Lacosamide [Vimpat] 100 mg PO BID 7 Days #14 tab 01/16/21 08/29/22 Rx Atorvastatin [Lipitor] 40 mg PO HS 07/20/21 08/29/22 History DULoxetine HCL [Cymbalta] 60 mg PO HS 07/20/21 08/29/22 History Atogepant [Qulipta] 60 mg PO HS 06/03/22 08/29/22 History Cyclobenzaprine [Flexeril] 10 mg PO TID PRN 06/03/22 08/29/22 History HYDROcodone/APAP 10-325MG [[place] 1 tab PO TID PRN 06/03/22 08/29/22 History 10-325] Spironolactone [Aldactone] 50 mg PO HS 06/04/22 08/29/22 History Ondansetron Odt [Zofran ODT] 4 mg PO Q8HR PRN #9 tab 06/26/22 08/29/22 Rx Albuterol Inhaler [Ventolin Hfa 2 puff INHALATION RT-QID PRN 08/29/22 08/29/22 History Inhaler] Aspirin 81 mg PO HS 08/29/22 08/29/22 History Clopidogrel [Plavix] 75 mg PO HS 08/29/22 08/29/22 History Famotidine [Pepcid] 20 mg PO BID 08/29/22 08/29/22 History Hyoscyamine Sulfate [Levsin-Sl] 0.125 mg SL Q4H PRN 08/29/22 08/29/22 History Metoprolol Succinate (ER) [Toprol 25 mg PO HS 08/29/22 08/29/22 History XL] Allergies Allergy/AdvReac Type Severity Reaction Status Date / Time dihydroergotamine Allergy Unknown Unknown Verified 08/29/22 18:18 [From Migranal] buprenorphine Allergy Rash/Hives Verified 08/29/22 18:18 gabapentin [From Neurontin] Allergy Itching/Swe Verified 08/29/22 18:18 lling latex Allergy Anaphylaxis Verified 08/29/22 18:18 naproxen [From Naprosyn] Allergy Anaphylaxis Verified 08/29/22 18:18 Penicillins Allergy Anaphylaxis Verified 08/29/22 18:18 prednisone Allergy Swelling Verified 08/29/22 18:18 quetiapine fumarate Allergy Itching, Verified 08/29/22 18:18 [From Seroquel] leg cramps rofecoxib [From Vioxx] Allergy Itching, Verified 08/29/22 18:18 leg cramps terfenadine [From Seldane] Allergy Rash/Hives Verified 08/29/22 18:18 tramadol Allergy Nausea & Verified 08/29/22 18:18 Vomiting/LEG CRAMPS/HEART FLUTTERS calcium carbonate [From DHEA] AdvReac Chest Pain Verified 08/29/22 18:18 calcium phosphate,dibasic AdvReac Chest Pain Verified 08/29/22 18:18 [From DHEA] clindamycin AdvReac muscle Verified 08/29/22 18:18 cramps clonidine AdvReac fast Verified 08/29/22 18:18 heartbeat, migraine dextromethorphan HBr AdvReac face/neck Verified 08/29/22 18:18 [From NyQuil] flushing diazepam [From Valium] AdvReac Nausea & Verified 08/29/22 18:18 Vomiting divalproex sodium AdvReac Nausea & Verified 08/29/22 18:18 [From Depakote] Vomiting doxylamine [From NyQuil] AdvReac face "beet Verified 08/29/22 18:18 red", elevated temp. ibuprofen [From Motrin] AdvReac abdominal Verified 08/29/22 18:18 & muscle cramps indomethacin [From Indocin] AdvReac Abdominal Verified 08/29/22 18:18 Pain,N/V ketorolac tromethamine AdvReac "built up Verified 08/29/22 18:18 [From Toradol] in system", had to be given something to reverse lorazepam [From Ativan] AdvReac Nausea & Verified 08/29/22 18:18 Vomiting memantine [From Namenda] AdvReac Itching Verified 08/29/22 18:18 metoclopramide HCl AdvReac muscle Verified 08/29/22 18:18 [From Reglan] cramps nortriptyline [From Pamelor] AdvReac Chest Pain Verified 08/29/22 18:18 prasterone (DHEA) [From DHEA] AdvReac Chest Pain Verified 08/29/22 18:18 prochlorperazine AdvReac leg Verified 08/29/22 18:18 [From Compazine] cramping propranolol AdvReac Chest Pain Verified 08/29/22 18:18 pseudoephedrine HCl AdvReac face "beet Verified 08/29/22 18:18 [From NyQuil] red", elevated temp. quetiapine [From Seroquel] AdvReac leg Verified 08/29/22 18:18 cramping sumatriptan [From Imitrex] AdvReac migrane Verified 08/29/22 18:18 sumatriptan succinate AdvReac migrane Verified 08/29/22 18:18 [From Imitrex] topiramate [From Topamax] AdvReac "built up Verified 08/29/22 18:18 in system", had to be given something to reverse trazodone AdvReac "built up Verified 08/29/22 18:18 in system", had to be given something to reverse zolpidem tartrate AdvReac "Became Verified 08/29/22 18:18 [From Ambien] violent with no memory" zonisamide [From Zonegran] AdvReac inability Verified 08/29/22 18:18 to eat artificial sweetener AdvReac SEVERE Uncoded 08/29/22 18:18 MIGRAINE HEADACHE prosyn AdvReac Itching Uncoded 08/29/22 18:18 Physical Exam Vitals: Vital Signs Temp Pulse Pulse Resp BP BP BP 08/30/22 07:25 97.9 F 90 16 132/84 08/29/22 22:00 98.2 F 73 18 143/94 08/29/22 19:55 97.9 F 82 18 160/95 08/29/22 16:40 99.0 F 91 18 166/107 Pulse Ox 08/30/22 07:25 98 08/29/22 22:00 95 08/29/22 19:55 100 08/29/22 16:40 100 Intake and Output 08/29/22 08/30/22 08/30/22 22:59 06:59 14:59 Other: # Voids 0 2 Weight 68.039 kg Results 08/29/22 18:19 08/29/22 18:19 Cardiac Enzymes 08/29/22 08/29/22 Range/Units 18:19 18:19 AST 29 (14-36) U/L Troponin I <0.012 (0.000-0.034) ng/mL Coagulation 08/29/22 Range/Units 18:19 PT 10.1 (9.0-12.0) sec APTT 22.6 (22.0-30.0) sec CBC 08/29/22 Range/Units 18:19 WBC 8.8 (3.8-10.6) k/uL RBC 3.74 L (3.80-5.40) m/uL Hgb 12.2 (11.4-16.0) gm/dL Hct 36.9 (34.0-46.0) % Plt Count 328 (150-450) k/uL Comprehensive Metabolic Panel 08/29/22 Range/Units 18:19 Sodium 137 (137-145) mmol/L Potassium 3.4 L (3.5-5.1) mmol/L Chloride 100 (98-107) mmol/L Carbon Dioxide 26 (22-30) mmol/L BUN 10 (7-17) mg/dL Creatinine 0.64 (0.52-1.04) mg/dL Glucose 84 (74-99) mg/dL Calcium 9.2 (8.4-10.2) mg/dL AST 29 (14-36) U/L ALT 22 (4-34) U/L Alkaline Phosphatase 136 H (38-126) U/L Total Protein 7.1 (6.3-8.2) g/dL Albumin 4.3 (3.5-5.0) g/dL Current Medications Generic Name Dose Route Start Last Admin Trade Name Freq PRN Reason Stop Dose Admin Acetaminophen 650 mg 08/29/22 18:01 Acetaminophen Tab 325 Mg Tab PO Q6HR PRN Mild Pain or Fever > 100.5 Hydrocodone Bitart/Acetaminophen 1 each 08/30/22 08:20 Hydrocodone/Apap 10-325mg 1 Each Tab PO TID PRN Pain Albuterol Sulfate 2 puff 08/30/22 08:20 Albuterol Hfa Inhaler INHALATION RT-QID PRN Shortness Of Breath Aspirin 81 mg 08/30/22 21:00 Aspirin 81 Mg PO HS [facility] Atorvastatin Calcium 40 mg 08/30/22 21:00 Atorvastatin 40 Mg Tab PO HS [facility] Clopidogrel Bisulfate 75 mg 08/30/22 21:00 Clopidogrel 75 Mg Tab PO HS [facility] Cyclobenzaprine HCl 10 mg 08/30/22 08:20 Cyclobenzaprine 10 Mg Tab PO TID PRN Pain Duloxetine HCl 60 mg 08/30/22 21:00 Duloxetine Hcl 60 Mg Capsule.Dr PO HS [facility] Famotidine 20 mg 08/30/22 09:00 Famotidine 20 Mg Tab PO BID [facility] Hyoscyamine 0.125 mg 08/30/22 08:20 Hyoscyamine Sulfate 0.125 Mg Tab SL Q4H PRN GI Upset Sodium Chloride 1,000 mls @ 130 mls/hr 08/29/22 18:15 08/30/22 04:54 Saline 0.9% IV 130 mls/hr .[id number] [facility] Administration Lacosamide 100 mg 08/30/22 09:00 Lacosamide 50 Mg Tablet PO BID [facility] Metoprolol Succinate 25 mg 08/30/22 21:00 Metoprolol Succinate (Er) 25 Mg Tab.Er.24h PO HS [facility] Morphine Sulfate 4 mg 08/29/22 18:01 08/30/22 04:53 Morphine Sulfate 4 Mg/Ml Syringe IV 4 mg Q4HR PRN Administration Severe Pain (Scale 7 to 10) Naloxone HCl 0.2 mg 08/29/22 18:01 Naloxone 0.4 Mg/Ml 1 Ml Vial IV Q2M PRN Opioid Reversal Atogepant [Qulipta] 60 mg 08/30/22 21:00 60 Mg Tablet PO HS [facility] Ondansetron HCl 4 mg 08/29/22 18:01 Ondansetron 4 Mg/2 Ml Vial IVP Q8HR PRN Nausea And Vomiting Ondansetron HCl 4 mg 08/30/22 08:20 Ondansetron Odt 4 Mg Tab PO Q8HR PRN Nausea Pantoprazole Sodium 40 mg 08/30/22 09:00 Pantoprazole 40 Mg Tablet PO AC-BRKFST [facility] Spironolactone 50 mg 08/30/22 21:00 Spironolactone 25 Mg Tab PO HS [facility] Thiamine HCl 100 mg 08/30/22 21:00 Thiamine 100 Mg Tab PO HS [facility] Intake and Output 08/29/22 08/30/22 08/30/22 22:59 06:59 14:59 Other: # Voids 0 2 Weight 68.039 kg 08/29/22 18:19 08/29/22 18:19
--- NOTE | 2022-08-30 11:07 | P.EPPROC ---
- EP Procedure Note Electrophysiology Procedure Note: Recurrent presyncopal spells and syncope Twelve-lead EKG shows sinus rhythm normal MS narrow QRS normal ST segments normal QT interval Tilt table test for protocol Baseline blood pressure 150/90 Sharyn and his mercury, Baseline heart rate 94 beats a minute Patient was tilted upright at an angle of 70 per protocol Blood pressure remained unchanged. Heart rate remained in the 90s She felt weak in the legs, fuzzy in the head No syncope no loss of consciousness no evidence for neurocardiogenic syncope Impression Normal 20 EKG with an absolute QT interval of less than 420 ms, normal cardiac intervals No evidence for neurocardiogenic syncope dysautonomia
[2022-08-30 15:14] VITALS: BP 147/93; PULSE 77; TEMP 98.1
--- NOTE | 2022-08-30 16:26 | P.HPIM ---
History of Present Illness H&P Date: 08/30/22 Chief Complaint: Syncope 52-year-old female with a past medical history significant for coronary artery disease with stenting to the mid LAD, hyperlipidemia, seizure disorder, migraines, anxiety, bipolar disorder, and PTSD, presented to the hospital with episode of syncope. Patient states that yesterday she was at her daughter's house and was walking to the living room after using the bathroom. She states that she said one or 2 words to her daughter and then collapsed to the floor. She states the next thing she remembers was she was on the floor and her daughter was asking her if she was okay. She states that she had no warning signs prior to this. She states that she has had multiple episodes of syncope in the past. Workup completed in ED EKG reveals sinus mechanism with no signs of acute ischemia Chest CT: Negative for pulmonary embolism. Small posterior left apex density present previously. Laboratory data: WBC 8.8. Hemoglobin 12.2. Platelet count 328. D-dimer 0.87. Sodium 137. Potassium 3.4. BUN 10. Creatinine 0.64. Troponin negative 1. ProBNP 321. Current home cardiac medications include Aldactone 50 mg at night, Plavix 75 mg daily, Lipitor 40 mg at night, aspirin 81 mg at night Cardiac catheterization history: 06/03/2022 with stenting to the mid LAD Review of Systems REVIEW OF SYSTEMS: CONSTITUTIONAL: No fever, no malaise, no fatigue. HEENT: No recent visual problems or hearing problems. Denied any sore throat. CARDIOVASCULAR: No chest pain, orthopnea, PND, no palpitations, no syncope. PULMONARY: No shortness of breath, no cough, no hemoptysis. GASTROINTESTINAL: No diarrhea, no nausea, no vomiting, no abdominal pain. NEUROLOGICAL: No headaches, no weakness, no numbness. HEMATOLOGICAL: Denies any bleeding or petechiae. GENITOURINARY: Denies any burning micturition, frequency, or urgency. MUSCULOSKELETAL/RHEUMATOLOGICAL: Denies any joint pain, swelling, or any muscle pain. ENDOCRINE: Denies any polyuria or polydipsia. The rest of the 14-point review of systems is negative. Past Medical History Past Medical History: Hyperlipidemia, Hypertension, Neurologic Disorder, Seizure Disorder Additional Past Medical History / Comment(s): Migraines, viral meningitis x3 as a child, 1995, 2000, chronic back pain, nerve blocks 08/2016 and 12/2016. Last seizure 10/10/2020, "ABSENT SEIZURES. HX TACHYCARDIA, GBS/CIPD, PTSD. History of Any Multi-Drug Resistant Organisms: None Reported Past Surgical History: Appendectomy, Section, Cholecystectomy, Heart Catheterization With Stent, Hernia Repair, Hysterectomy, Orthopedic Surgery, T onsillectomy, Tubal Ligation Additional Past Surgical History / Comment(s): Hiatal Hernia, umbilical hernia repair, left rotator cuff repair, bilateral knee scopes, pain clinic procedures- occipital nerve block. abd exploratory sx(endometreosis), 3 abd scopes 1981, 1989, 1991), lumbar puncture. EGD. nerve biopsy, salvalry gland biospy Past Anesthesia/Blood Transfusion Reactions: No Reported Reaction Additional Past Anesthesia/Blood Transfusion Reaction / Comment(s): Claustrophobic Date of Last Stent Placement:: 06/03/2022 Past Psychological History: Anxiety, Bipolar, Panic Disorder, PTSD Additional Psychological History / Comment(s): lives at home. Smoking Status: Former smoker Past Alcohol Use History: None Reported Additional Past Alcohol Use History / Comment(s): SMOKED [id number] Past Drug Use History: None Reported - Past Family History Mother Family Medical History: Cancer, Dementia, Diabetes Mellitus, GERD/Reflux, Hyperlipidemia, Hypertension, Thyroid Disorder Additional Family Medical History / Comment(s): CABG Father History Unknown: Yes Family Medical History: No Reported History Medications and Allergies Home Medications Medication Instructions Recorded Confirmed Type Omeprazole [PriLOSEC] 20 mg PO BID 12/15/20 08/29/22 History Thiamine [Vitamin B-1] 100 mg PO HS 01/04/21 08/29/22 History Lacosamide [Vimpat] 100 mg PO BID 7 Days #14 tab 01/16/21 08/29/22 Rx Atorvastatin [Lipitor] 40 mg PO HS 07/20/21 08/29/22 History DULoxetine HCL [Cymbalta] 60 mg PO HS 07/20/21 08/29/22 History Atogepant [Qulipta] 60 mg PO HS 06/03/22 08/29/22 History Cyclobenzaprine [Flexeril] 10 mg PO TID PRN 06/03/22 08/29/22 History HYDROcodone/APAP 10-325MG [[place] 1 tab PO TID PRN 06/03/22 08/29/22 History 10-325] Spironolactone [Aldactone] 50 mg PO HS 06/04/22 08/29/22 History Ondansetron Odt [Zofran ODT] 4 mg PO Q8HR PRN #9 tab 06/26/22 08/29/22 Rx Albuterol Inhaler [Ventolin Hfa 2 puff INHALATION RT-QID PRN 08/29/22 08/29/22 History Inhaler] Aspirin 81 mg PO HS 08/29/22 08/29/22 History Clopidogrel [Plavix] 75 mg PO HS 08/29/22 08/29/22 History Famotidine [Pepcid] 20 mg PO BID 08/29/22 08/29/22 History Hyoscyamine Sulfate [Levsin-Sl] 0.125 mg SL Q4H PRN 08/29/22 08/29/22 History Metoprolol Succinate (ER) [Toprol 25 mg PO HS 08/29/22 08/29/22 History XL] Allergies Allergy/AdvReac Type Severity Reaction Status Date / Time dihydroergotamine Allergy Unknown Unknown Verified 08/29/22 18:18 [From Migranal] buprenorphine Allergy Rash/Hives Verified 08/29/22 18:18 gabapentin [From Neurontin] Allergy Itching/Swe Verified 08/29/22 18:18 lling latex Allergy Anaphylaxis Verified 08/29/22 18:18 naproxen [From Naprosyn] Allergy Anaphylaxis Verified 08/29/22 18:18 Penicillins Allergy Anaphylaxis Verified 08/29/22 18:18 prednisone Allergy Swelling Verified 08/29/22 18:18 quetiapine fumarate Allergy Itching, Verified 08/29/22 18:18 [From Seroquel] leg cramps rofecoxib [From Vioxx] Allergy Itching, Verified 08/29/22 18:18 leg cramps terfenadine [From Seldane] Allergy Rash/Hives Verified 08/29/22 18:18 tramadol Allergy Nausea & Verified 08/29/22 18:18 Vomiting/LEG CRAMPS/HEART FLUTTERS calcium carbonate [From DHEA] AdvReac Chest Pain Verified 08/29/22 18:18 calcium phosphate,dibasic AdvReac Chest Pain Verified 08/29/22 18:18 [From DHEA] clindamycin AdvReac muscle Verified 08/29/22 18:18 cramps clonidine AdvReac fast Verified 08/29/22 18:18 heartbeat, migraine dextromethorphan HBr AdvReac face/neck Verified 08/29/22 18:18 [From NyQuil] flushing diazepam [From Valium] AdvReac Nausea & Verified 08/29/22 18:18 Vomiting divalproex sodium AdvReac Nausea & Verified 08/29/22 18:18 [From Depakote] Vomiting doxylamine [From NyQuil] AdvReac face "beet Verified 08/29/22 18:18 red", elevated temp. ibuprofen [From Motrin] AdvReac abdominal Verified 08/29/22 18:18 & muscle cramps indomethacin [From Indocin] AdvReac Abdominal Verified 08/29/22 18:18 Pain,N/V ketorolac tromethamine AdvReac "built up Verified 08/29/22 18:18 [From Toradol] in system", had to be given something to reverse lorazepam [From Ativan] AdvReac Nausea & Verified 08/29/22 18:18 Vomiting memantine [From Namenda] AdvReac Itching Verified 08/29/22 18:18 metoclopramide HCl AdvReac muscle Verified 08/29/22 18:18 [From Reglan] cramps nortriptyline [From Pamelor] AdvReac Chest Pain Verified 08/29/22 18:18 prasterone (DHEA) [From DHEA] AdvReac Chest Pain Verified 08/29/22 18:18 prochlorperazine AdvReac leg Verified 08/29/22 18:18 [From Compazine] cramping propranolol AdvReac Chest Pain Verified 08/29/22 18:18 pseudoephedrine HCl AdvReac face "beet Verified 08/29/22 18:18 [From NyQuil] red", elevated temp. quetiapine [From Seroquel] AdvReac leg Verified 08/29/22 18:18 cramping sumatriptan [From Imitrex] AdvReac migrane Verified 08/29/22 18:18 sumatriptan succinate AdvReac migrane Verified 08/29/22 18:18 [From Imitrex] topiramate [From Topamax] AdvReac "built up Verified 08/29/22 18:18 in system", had to be given something to reverse trazodone AdvReac "built up Verified 08/29/22 18:18 in system", had to be given something to reverse zolpidem tartrate AdvReac "Became Verified 08/29/22 18:18 [From Ambien] violent with no memory" zonisamide [From Zonegran] AdvReac inability Verified 08/29/22 18:18 to eat artificial sweetener AdvReac SEVERE Uncoded 08/29/22 18:18 MIGRAINE HEADACHE prosyn AdvReac Itching Uncoded 08/29/22 18:18 Physical Exam Vitals: Vital Signs Temp Pulse Pulse Resp BP BP BP 08/30/22 07:25 97.9 F 90 16 132/84 08/29/22 22:00 98.2 F 73 18 143/94 08/29/22 19:55 97.9 F 82 18 160/95 08/29/22 16:40 99.0 F 91 18 166/107 Pulse Ox 08/30/22 07:25 98 08/29/22 22:00 95 08/29/22 19:55 100 08/29/22 16:40 100 Intake and Output 08/29/22 08/30/22 08/30/22 22:59 06:59 14:59 Intake Total 118 Balance 118 Intake: Oral 118 Other: # Voids 0 2 Weight 68.039 kg PHYSICAL EXAMINATION: GENERAL: The patient is alert and oriented x3, not in any acute distress. Well developed, well nourished. HEENT: Pupils are round and equally reacting to light. EOMI. No scleral icterus. No conjunctival pallor. Normocephalic, atraumatic. No pharyngeal erythema. No t hyromegaly. CARDIOVASCULAR: S1 and S2 present. No murmurs, rubs, or gallops. PULMONARY: Chest is clear to auscultation, no wheezing or crackles. ABDOMEN: Soft, nontender, nondistended, normoactive bowel sounds. No palpable organomegaly. MUSCULOSKELETAL: No joint swelling or deformity. EXTREMITIES: No cyanosis, clubbing, or pedal edema. NEUROLOGICAL: Gross neurological examination did not reveal any focal deficits. SKIN: No rashes. Results CBC & Chem 7: 08/29/22 18:19 08/29/22 18:19 Labs: Abnormal Lab Results - Last 24 Hours (Table) 08/29/22 08/29/22 08/29/22 Range/Units 18:19 18:19 18:19 RBC 3.74 L (3.80-5.40) m/uL D-Dimer 0.87 H (<0.60) mg/L FEU Potassium 3.4 L (3.5-5.1) mmol/L Alkaline Phosphatase 136 H (38-126) U/L Thrombosis Risk Factor Assmnt - Choose All That Apply Any of the Below Risk Factors Present?: No Assessment and Plan Assessment: Syncope Coronary artery disease with stenting to the mid LAD, May 2022 Hyperlipidemia Seizure disorder Migraines Anxiety Bipolar disorder PTSD PLAN: Obtain 2-D echo to assess cardiac structure and function Continue telemetry monitoring Patient to undergo tilt table testing If negative, she may be discharged home today in follow-up on an outpatient basis with Dr. Corrales If tilt table is negative, will consider outpatient event monitor
[2022-08-30] MEDS ORDERED: THIAMINE 100 MG TAB PO SCH (21:00)
[2022-08-30] MEDS ORDERED: CLOPIDOGREL 75 MG TAB PO SCH (21:00)
[2022-08-30] MEDS ORDERED: Atogepant [Qulipta] 60 MG Tablet PO SCH (21:00)
[2022-08-30] MEDS ORDERED: ATORVASTATIN 40 MG TAB PO SCH (21:00)
[2022-08-30] MEDS ORDERED: SPIRONOLACTONE 25 MG TAB PO SCH (21:00)
[2022-08-30] MEDS ORDERED: METOPROLOL SUCCINATE (ER) 25 MG TAB.ER.24H PO SCH (21:00)
[2022-08-30] MEDS ORDERED: DULoxetine HCL 60 MG CAPSULE.DR PO SCH (21:00)
[2022-08-30] MEDS ORDERED: ASPIRIN 81 MG PO SCH (21:00)
--- NOTE | 2022-08-31 17:40 | CA ---
Transthoracic Echo Report Name: Shaniqua Garza Age: 52 Gender: F : 1970 Exam Date: 08/30/2022 14:42 Exam Location: [facility] Ht (in): 63 Wt (lb): 150 Ordering Physician: Zofia Madsen Attending/Referring Phys: [id number], [facility] Customer Service Advocate Peggy Chao, PAT Procedure CPT: Indications: LV function Cardiac Hx: Technical Quality: Good Contrast 1: Total Dose (mL): Contrast 2: Total Dose (mL): MEASUREMENTS (Male / Female) Normal Values 2D ECHO LV Diastolic Diameter PLAX 4.1 cm 4.2 - 5.9 / 3.9 - 5.3 cm LV Systolic Diameter PLAX 2.9 cm IVS Diastolic Thickness 1.1 cm 0.6 - 1.0 / 0.6 - 0.9 cm LVPW Diastolic Thickness 1.2 cm 0.6 - 1.0 / 0.6 - 0.9 cm LV Relative Wall Thickness 0.6 RV Internal Dim ED PLAX 2.8 cm LA Systolic Diameter LX 3.4 cm 3.0 - 4.0 / 2.7 - 3.8 cm LA Volume 48.8 cm??? 18 - 58 / 22 - 52 cm??? M-MODE Aortic Root Diameter MM 2.9 cm AV Cusp Separation MM 2.1 cm DOPPLER AV Peak Velocity 145.1 cm/s AV Peak Gradient 8.4 mmHg MV Area PHT 5.3 cm??? Mitral E Point Velocity 96.6 cm/s Mitral A Point Velocity 112.8 cm/s Mitral E to A Ratio 0.9 MV Deceleration Time 143.2 ms MV E' Velocity 7.9 cm/s Mitral E to MV E' Ratio 12.2 TR Peak Velocity 271.4 cm/s TR Peak Gradient 29.5 mmHg Right Ventricular Systolic Press 34.5 mmHg FINDINGS Left Ventricle Left ventricular ejection fraction is estimated at 55-60 %. Mildly increased septal wall thickness. Mildly increased posterior wall thickness. Left ventricular cavity size normal. Right Ventricle Normal right ventricular size and function. Mild pulmonary hypertension. Right Atrium Normal right atrial size. Left Atrium Normal left atrial size. Mitral Valve Structurally normal mitral valve. Trace mitral regurgitation. Aortic Valve Trileaflet aortic valve. No aortic valve stenosis or regurgitation. Tricuspid Valve Structurally normal tricuspid valve. Trace to mild tricuspid regurgitation. Pulmonic Valve Structurally normal pulmonic valve. Trace pulmonic regurgitation. Pericardium Normal pericardium. No pericardial effusion. Aorta Normal size aortic root and proximal ascending aorta. CONCLUSIONS LVH with preserved systolic function Previewed by: Dr. Tahir Bustillos MD (Electronically Signed) Final Date: 31 Aug 2022 17:40
== END 2022-08-30 16:45 | disposition home health service (06) ==
LOC: EC 16:25 → 6NMEDSUR 18:03
PROVIDERS: ADMIT Hospitalist; ATTEND Hospitalist
DX: R55 Syncope and collapse (principal); I25.10 Atherosclerotic heart disease of native coronary artery without angina pectoris; Z95.5 Presence of coronary angioplasty implant and graft; E78.5 Hyperlipidemia, unspecified; G40.909 Epilepsy, unspecified, not intractable, without status epilepticus; G43.909 Migraine, unspecified, not intractable, without status migrainosus; F41.9 Anxiety disorder, unspecified; F31.9 Bipolar disorder, unspecified; F43.10 Post-traumatic stress disorder, unspecified; Z86.19 Personal history of other infectious and parasitic diseases; G89.29 Other chronic pain; M54.9 Dorsalgia, unspecified; Z90.49 Acquired absence of other specified parts of digestive tract; Z98.891 History of uterine scar from previous surgery; Z90.710 Acquired absence of both cervix and uterus; F40.240 Claustrophobia; Z87.891 Personal history of nicotine dependence; Z80.9 Family history of malignant neoplasm, unspecified; Z81.8 Family history of other mental and behavioral disorders; Z83.3 Family history of diabetes mellitus; Z83.2 Family history of diseases of the blood and blood-forming organs and certain disorders involving the immune mechanism; Z83.438 Family history of other disorder of lipoprotein metabolism and other lipidemia; Z83.49 Family history of other endocrine, nutritional and metabolic diseases; Z79.82 Long term (current) use of aspirin; Z79.899 Other long term (current) drug therapy; Z88.5 Allergy status to narcotic agent; Z88.0 Allergy status to penicillin; Z88.8 Allergy status to other drugs, medicaments and biological substances; Z88.6 Allergy status to analgesic agent; Z91.040 Latex allergy status
CPT/HCPCS: 96376; 96374; 96375; 99285; 93005; 93306; 93660; 85379; 83880; 80053; 83735; 84100; 84484; 85025; 85610; 85730; 81003; 71275; G0378 ×2; J2270 ×2; J1200; J1170; Q9967

== ENCOUNTER 2022-09-16 06:20 | Day surgery (SDC) | payer OTHER ==
[2022-09-11 08:58] VITALS: BMI 31.1
[~2022-09-16 06:20] MED LIST changes: +ACETAMINOPHEN TAB 500 MG TAB PO PRN; +HEPARIN SODIUM,PORCINE/PF 5,000 UNIT/0.5 ML SYRINGE SQ PRN; -LACTATED RINGERS 1,000 ML IV SCH
[2022-09-16] MEDS ORDERED: fentaNYL (PF) 50 MCG/ML 2 ML AMP IV PRN (06:49)
[2022-09-16] MEDS ORDERED: LACTATED RINGERS 1,000 ML IV SCH (06:49)
[2022-09-16] MEDS ORDERED: ONDANSETRON 4 MG/2 ML VIAL IVP ONE (06:49)
[2022-09-16] MEDS ORDERED: MIDAZOLAM 2 MG/2 ML VIAL IVP ONE (07:50)
[2022-09-16] MEDS ORDERED: DEXAMETHASONE SOD PHOSPHATE 4 MG/ML 1 ML VIAL ONE (09:04)
[2022-09-16] MEDS ORDERED: MIDAZOLAM 2 MG/2 ML VIAL ONE (09:04)
[2022-09-16] MEDS ORDERED: PROPOFOL 10 MG/ML 20 ML VIAL IV ONE (09:04)
[2022-09-16] MEDS ORDERED: ROCURONIUM 10 MG/ML (5 ML VIAL) IV ONE (09:04)
[2022-09-16] MEDS ORDERED: SUCCINYLCHOLINE CHLORIDE 200 MG/10 ML VIAL IV ONE (09:04)
[2022-09-16] MEDS ORDERED: BUPIVACAINE (PF) 0.5% 30 ML VIAL ONE (09:04)
[2022-09-16] MEDS ORDERED: LIDOCAINE 2% INJ 20 MG/ML (2 ML VIAL) ONE (09:04)
[2022-09-16] MEDS ORDERED: BUPIVACAINE (PF) 0.25% 30 ML VIAL SQ ONE ×2 (09:04→09:25)
[2022-09-16] MEDS ORDERED: SUGAMMADEX SODIUM 200 MG/2 ML SDV IV ONE (09:04)
[2022-09-16] MEDS ORDERED: fentaNYL (PF) 50 MCG/ML 2 ML AMP ONE (09:04)
--- NOTE | 2022-09-16 09:54 | P.OP ---
Date of Procedure: 09/16/22 Preoperative Diagnosis: Incarcerated umbilical hernia Postoperative Diagnosis: Incarcerated umbilical hernia Procedure(s) Performed: Repair of incarcerated umbilical hernia Anesthesia: PHILLY Surgeon: Dean Trejo Estimated Blood Loss (ml): 5 Pathology: none sent Condition: stable Disposition: PACU Description of Procedure: The patient's placed on the operative table in supine position. She received general anesthesia. Her abdomen was prepped and draped usual fashion. The skin was incised in the infraumbilical position. The subcutaneous tissue divided with electrocautery. The hernia defect was visualized. It appeared to contain incarcerated fat. The hernia was inverted back into the peritoneal cavity. The fascial defect was then closed using [id number] Ethibond suture. There is no plane seen. The skin was closed interrupted 3-0 Monocryl suture. [place] fisher was applied. Patient tolerated the procedure well sent to recovery room in stable condition.
[2022-09-16 09:57] VITALS: TEMP 97
[2022-09-16] MEDS ORDERED: HYDROmorphone 0.5 MG/0.5 ML SYRINGE IVP ONE ×2 (10:10→10:20)
[2022-09-16 10:32] VITALS: RESP 16
[2022-09-16 11:25] VITALS: BP 132/85; PULSE 84
--- NOTE | 2022-09-16 15:07 | P.ANPRN ---
Procedure Note - Anesthesia - Nerve Block Performed Bilateral Rectus Abdominis Single Time Out Performed: Yes Date of Procedure: 09/16/22 Procedure Start Time: 07:49 Procedure Stop Time: 07:54 Location of Patient: PreOp Indication: Acute Post-Operative Pain, Requested by Surgeon Sedation Type: Sedate with meaningful contact maintained Preparation: Sterile Prep Position: Supine Needle Types: Pajunk Needle Gauge: 21 Ultrasound used to visualize needle placement: Yes Ultrasound used to observe medication spread: Yes Blood Aspirated: No Pain Paresthesia on Injection Noted: No Resistance on Injection: Normal Image Stored and Saved: Yes Events: Uneventful and Well Tolerated (ropi .5% 20cc plus dexamethasone 4mg given bilaterally)
== END 2022-09-16 12:01 | disposition home or self-care (01) ==
LOC: OR 06:20
PROVIDERS: ATTEND Surgery
DX: K42.0 Umbilical hernia with obstruction, without gangrene (principal); G89.18 Other acute postprocedural pain; I25.10 Atherosclerotic heart disease of native coronary artery without angina pectoris; Z95.5 Presence of coronary angioplasty implant and graft; E78.5 Hyperlipidemia, unspecified; K21.9 Gastro-esophageal reflux disease without esophagitis; Z90.49 Acquired absence of other specified parts of digestive tract; Z79.02 Long term (current) use of antithrombotics/antiplatelets; Z79.82 Long term (current) use of aspirin; Z79.899 Other long term (current) drug therapy
CPT/HCPCS: 64488; 49592; J2250; J0330; J1100; J0690; J2405; J3010; J2704; J1170; J1644; J2001

== ENCOUNTER 2022-10-21 18:12 | Emergency (ER) | payer OTHER ==
[2022-10-21 18:21] VITALS: TEMP 98.5
[2022-10-21] MEDS ORDERED: ONDANSETRON 4 MG TAB PO STA (19:33)
[2022-10-21] MEDS ORDERED: HYDROmorphone 1 MG/ML 1 ML SYRINGE IM STA (19:33)
[2022-10-21] MEDS ORDERED: diphenhydrAMINE 50 MG CAP PO STA (19:33)
--- NOTE | 2022-10-21 19:34 | ED ---
Headache HPI - General Chief Complaint: Nausea/Vomiting/Diarrhea Stated Complaint: headache Time Seen by Provider: 10/21/22 18:52 Source: RN notes reviewed, old records reviewed Mode of arrival: wheelchair Limitations: no limitations - History of Present Illness Initial Comments: This is a 52-year-old male here for evaluation patient Dese for evaluation of headache recurrent headache history of migraine headaches with nausea vomiting. Patient's well-known to this facility for headaches no recent trauma no other complaints. Patient states overall she is does not feel well with worsening headache MD Complaint: headache, "migraine" -: days(s) Onset Description: sudden, gradual Location: right, left, frontal Severity: moderate Severity scale (1-10): 4 Quality: aching, throbbing Consistency: constant Improves With: nothing Worsens With: none Context: other (0) Associated Symptoms: nausea, vomiting Other Symptoms: malaise Treatments Prior to Arrival: none - Related Data Home Medications Medication Instructions Recorded Confirmed Omeprazole [PriLOSEC] 20 mg PO BID 12/15/20 10/28/22 Thiamine [Vitamin B-1] 100 mg PO HS 01/04/21 10/28/22 Atorvastatin [Lipitor] 40 mg PO HS 07/20/21 10/28/22 DULoxetine HCL [Cymbalta] 60 mg PO HS 07/20/21 10/28/22 Atogepant [Qulipta] 60 mg PO HS 06/03/22 10/28/22 Cyclobenzaprine [Flexeril] 10 mg PO TID PRN 06/03/22 10/28/22 HYDROcodone/APAP 10-325MG [Angwin 1 tab PO TID PRN 06/03/22 10/28/22 10-325] Albuterol Inhaler [Ventolin Hfa 2 puff INHALATION RT-QID PRN 08/29/22 10/28/22 Inhaler] Aspirin 81 mg PO HS 08/29/22 10/28/22 Clopidogrel [Plavix] 75 mg PO HS 08/29/22 10/28/22 Famotidine [Pepcid] 20 mg PO BID 08/29/22 10/28/22 Hyoscyamine Sulfate [Levsin-Sl] 0.125 mg SL Q4H PRN 08/29/22 10/28/22 Vitamin B-12 (Unknown Dose) 1 tab PO DAILY 09/11/22 10/28/22 Previous Rx's Medication Instructions Recorded Lacosamide [Vimpat] 100 mg PO BID 7 Days #14 tab 01/16/21 Ondansetron Odt [Zofran ODT] 4 mg PO Q8HR PRN #9 tab 06/26/22 Nitroglycerin Sl Tabs [Nitrostat] 0.4 mg SUBLINGUAL Q5M PRN #25 tab 10/28/22 Allergies Allergy/AdvReac Type Severity Reaction Status Date / Time dihydroergotamine Allergy Unknown Unknown Verified 10/28/22 06:58 [From Migranal] buprenorphine Allergy Rash/Hives Verified 10/28/22 06:58 gabapentin [From Neurontin] Allergy Itching/Swe Verified 10/28/22 06:58 lling latex Allergy Anaphylaxis Verified 10/28/22 06:58 naproxen [From Naprosyn] Allergy Anaphylaxis Verified 10/28/22 06:58 Penicillins Allergy Anaphylaxis Verified 10/28/22 06:58 prednisone Allergy Swelling Verified 10/28/22 06:58 quetiapine fumarate Allergy Itching, Verified 10/28/22 06:58 [From Seroquel] leg cramps rofecoxib [From Vioxx] Allergy Itching, Verified 10/28/22 06:58 leg cramps terfenadine [From Seldane] Allergy Rash/Hives Verified 10/28/22 06:58 calcium carbonate [From DHEA] AdvReac Chest Pain Verified 10/28/22 06:58 calcium phosphate,dibasic AdvReac Chest Pain Verified 10/28/22 06:58 [From DHEA] clindamycin AdvReac muscle Verified 10/28/22 06:58 cramps clonidine AdvReac fast Verified 10/28/22 06:58 heartbeat, migraine dextromethorphan HBr AdvReac face/neck Verified 10/28/22 06:58 [From NyQuil] flushing diazepam [From Valium] AdvReac Nausea & Verified 10/28/22 06:58 Vomiting divalproex sodium AdvReac Nausea & Verified 10/28/22 06:58 [From Depakote] Vomiting doxylamine [From NyQuil] AdvReac face "beet Verified 10/28/22 06:58 red", elevated temp. ibuprofen [From Motrin] AdvReac abdominal Verified 10/28/22 06:58 & muscle cramps indomethacin [From Indocin] AdvReac Abdominal Verified 10/28/22 06:58 Pain,N/V ketorolac tromethamine AdvReac "built up Verified 10/28/22 06:58 [From Toradol] in system", had to be given something to reverse lorazepam [From Ativan] AdvReac Nausea & Verified 10/28/22 06:58 Vomiting memantine [From Namenda] AdvReac Itching Verified 10/28/22 06:58 metoclopramide HCl AdvReac muscle Verified 10/28/22 06:58 [From Reglan] cramps nortriptyline [From Pamelor] AdvReac Chest Pain Verified 10/28/22 06:58 prasterone (DHEA) [From DHEA] AdvReac Chest Pain Verified 10/28/22 06:58 prochlorperazine AdvReac leg Verified 10/28/22 06:58 [From Compazine] cramping propranolol AdvReac Chest Pain Verified 10/28/22 06:58 pseudoephedrine HCl AdvReac face "beet Verified 10/28/22 06:58 [From NyQuil] red", elevated temp. quetiapine [From Seroquel] AdvReac leg Verified 10/28/22 06:58 cramping sumatriptan [From Imitrex] AdvReac migrane Verified 10/28/22 06:58 sumatriptan succinate AdvReac migrane Verified 10/28/22 06:58 [From Imitrex] topiramate [From Topamax] AdvReac "built up Verified 10/28/22 06:58 in system", had to be given something to reverse tramadol AdvReac Nausea & Verified 10/28/22 06:58 Vomiting/LEG CRAMPS/HEART FLUTTERS trazodone AdvReac "built up Verified 10/28/22 06:58 in system", had to be given something to reverse zolpidem tartrate AdvReac "Became Verified 10/28/22 06:58 [From Ambien] violent with no memory" zonisamide [From Zonegran] AdvReac inability Verified 10/28/22 06:58 to eat artificial sweetener AdvReac SEVERE Uncoded 10/27/22 18:47 MIGRAINE HEADACHE prosyn AdvReac Itching Uncoded 10/27/22 18:47 Review of Systems ROS Statement: Those systems with pertinent positive or pertinent negative responses have been documented in the HPI. ROS Other: All systems not noted in ROS Statement are negative. Past Medical History Past Medical History: Hyperlipidemia, Hypertension, Seizure Disorder Additional Past Medical History / Comment(s): Migraines, viral meningitis x3 as a child, 1995, 2000, chronic back pain, nerve blocks 08/2016 and 12/2016. Last seizure 10/10/2020, "ABSENT SEIZURES. HX TACHYCARDIA, GBS/CIPD, PTSD. History of Any Multi-Drug Resistant Organisms: None Reported Past Surgical History: Appendectomy, Section, Cholecystectomy, Heart Catheterization With Stent, Hernia Repair, Hysterectomy, Orthopedic Surgery, Tonsillectomy, Tubal Ligation Additional Past Surgical History / Comment(s): Hiatal Hernia, umbilical hernia repair, left rotator cuff repair, bilateral knee scopes, pain clinic procedures- occipital nerve block. abd exploratory sx(endometreosis), 3 abd scopes 1981, 1989, 1991), lumbar puncture. EGD. nerve biopsy, salvalry gland biospy Past Anesthesia/Blood Transfusion Reactions: No Reported Reaction Additional Past Anesthesia/Blood Transfusion Reaction / Comment(s): Claustrophobic Date of Last Stent Placement:: 06/03/2022 Past Psychological History: Anxiety, Bipolar, Panic Disorder, PTSD Smoking Status: Former smoker Past Alcohol Use History: None Reported Past Drug Use History: None Reported - Past Family History Mother Family Medical History: Cancer, Dementia, Diabetes Mellitus, GERD/Reflux, Hyperlipidemia, Hypertension, Thyroid Disorder Additional Family Medical History / Comment(s): CABG Father History Unknown: Yes Family Medical History: No Reported History General Exam Limitations: no limitations General appearance: alert, in no apparent distress Head exam: Present: atraumatic, normocephalic, normal inspection Eye exam: Present: normal appearance, PERRL, EOMI. Absent: scleral icterus, conjunctival injection, periorbital swelling ENT exam: Present: normal exam, mucous membranes moist Neck exam: Present: normal inspection. Absent: tenderness, meningismus, lymphadenopathy Respiratory exam: Present: normal lung sounds bilaterally. Absent: respiratory distress, wheezes, rales, rhonchi, stridor Cardiovascular Exam: Present: regular rate, normal rhythm, normal heart sounds. Absent: systolic murmur, diastolic murmur, rubs, gallop, clicks GI/Abdominal exam: Present: soft, normal bowel sounds. Absent: distended, tenderness, guarding, rebound, rigid Extremities exam: Present: normal inspection, full ROM, normal capillary refill. Absent: tenderness, pedal edema, joint swelling, calf tenderness Back exam: Present: normal inspection Neurological exam: Present: alert, oriented X3, CN II-XII intact Psychiatric exam: Present: normal affect, normal mood Skin exam: Present: warm, dry, intact, normal color. Absent: rash Course Vital Signs 10/21/22 10/21/22 10/21/22 18:13 18:43 20:48 Temperature 98.5 F Pulse Rate 97 97 65 Respiratory 18 20 16 Rate Blood Pressure 166/76 137/100 145/98 O2 Sat by Pulse 98 97 98 Oximetry - Reevaluation(s) Reevaluation #1: 10/22/22 00:26 Medical record is reviewed Reevaluation #2: 10/22/22 00:26 Patient's headache is resolved Reevaluation #3: 10/22/22 00:26 Patient informed results questions answered Reevaluation #4: 10/22/22 00:26 Was pt. sent in by a medical professional or institution? @ -no Did you speak to anyone other than the patient for history? @ -no Did you review nursing and triage notes? @ -agree Were old charts reviewed? @ -yes Differential Diagnosis? @ -prior EKG interpreted by me (3pts min.)? @ -no X-rays interpreted by me (1pt min.)? @ -no CT interpreted by me (1pt min.)? @ -no U/S interpreted by me (1pt. min.)? @ -no What testing was considered but not performed? (CT, X-rays, U/S, labs)? Why? @ -no What meds were considered but not given? Why? @ -no Did you discuss the management of the patient with other professionals? @ -no Did you reconcile home meds? @ -no Was smoking cessation discussed for >3mins.? @ -no Was critical care preformed (if so, how long)? @ -no Were there social determinants of health that impacted care today? How? (Homelessness, low income, unemployed, alcoholism, drug addiction, transpor tation, low edu. Level, literacy, decrease access to med. care, senior care, rehab)? @ -no Was there de-escalation of care discussed even if they declined? (Discuss DNR or withdrawal of care, Hospice)? @ -no What co-morbidities impacted this encounter? (DM, HTN, Smoking, COPD, CAD, Cancer, CVA, Hep., AIDS, mental health diagnosis, sleep apnea, morbid obesity)? @ -none Was patient admitted / discharged? @ -52 female to the emergency department with recurrent migraine headaches. Headache is improved and patient can be discharged home Discharge Undiagnosed new problem with uncertain prognosis? @ -no Drug Therapy requiring intensive monitoring for toxicity (Heparin, Nitro, Insulin, Cardizem)? @ -no Were any procedures done? @ -no Diagnosis/symptom? @ -Migraine headache Acute, or Chronic, or Acute on Chronic? @ -acute Uncomplicated (without systemic symptoms) or Complicated (systemic symptoms)? @ -complicated Side effects of treatment? @ -no Exacerbation, Progression, or Severe Exacerbation] @ -no Poses a threat to life or bodily function? @ -yno Reevaluation #5: 10/22/22 00:26 Differential Headache: Migraine, tension, cluster, carbon monoxide, central venous thrombosis, pension karma temporal arteritis, acute closure glaucoma, intercranial hemorrhage, mastoiditis, sinusitis, head injury, this is not meant to be an all-inclusive list. Medical Decision Making - Medical Decision Making 52 female to the emergency department with recurrent migraine headaches. Head ache is improved and patient can be discharged home Disposition Clinical Impression: Nausea and vomiting, Migraine Disposition: HOME SELF-CARE Condition: Fair Instructions (If sedation given, give patient instructions): Acute Nausea and Vomiting (ED) Is patient prescribed a controlled substance at d/c from ED?: No Referrals: José Reece MD [Primary Care Provider] - 1-2 days Time of Disposition: 20:40
[2022-10-21 20:49] VITALS: BP 145/98; PULSE 65; RESP 16
== END 2022-10-21 20:49 | disposition home or self-care (01) ==
LOC: EC 18:12
DX: R11.2 Nausea with vomiting, unspecified (principal); G43.909 Migraine, unspecified, not intractable, without status migrainosus; I10 Essential (primary) hypertension; E78.5 Hyperlipidemia, unspecified; F41.9 Anxiety disorder, unspecified; F31.9 Bipolar disorder, unspecified; Z87.891 Personal history of nicotine dependence; Z91.040 Latex allergy status; Z88.0 Allergy status to penicillin; Z88.2 Allergy status to sulfonamides; Z88.5 Allergy status to narcotic agent; Z88.6 Allergy status to analgesic agent; Z88.1 Allergy status to other antibiotic agents; Z88.8 Allergy status to other drugs, medicaments and biological substances; Z79.82 Long term (current) use of aspirin; Z79.02 Long term (current) use of antithrombotics/antiplatelets; Z79.899 Other long term (current) drug therapy
CPT/HCPCS: 99283; 96372; J1170

== ENCOUNTER 2022-10-27 18:43 | Observation (INO) | payer OTHER ==
[2022-10-27] MEDS ORDERED: ACETAMINOPHEN TAB 325 MG TAB PO STA (19:43)
--- NOTE | 2022-10-27 19:51 | XR ---
EXAMINATION TYPE: XR chest 2V DATE OF EXAM: 10/27/2022 7:44 PM COMPARISON: Chest radiographs from 08/17/2022 TECHNIQUE: XR chest 2V Frontal and lateral views of the chest. CLINICAL INDICATION:Female, 52 years old with history of CP/SOB; FINDINGS: Lungs/Pleura: There is no evidence of pleural effusion, focal consolidation, or pneumothorax. Pulmonary vascularity: Unremarkable. Heart/mediastinum: Cardiomediastinal silhouette is enlarged and stable. Musculoskeletal: Degenerative changes of the shoulder joints. Left chest wall [id number] tip at the superior cavoatrial junction. IMPRESSION: No acute cardiopulmonary disease/process.
--- NOTE | 2022-10-27 20:04 | ED ---
General Adult HPI - General Chief complaint: Chest Pain Stated complaint: sob,chest pain Time Seen by Provider: 10/27/22 19:13 Source: patient, RN notes reviewed Mode of arrival: ambulatory Limitations: no limitations - History of Present Illness Initial comments: 52-year-old female presents to the emergency department. Patient reports worsening left-sided present for the last 3 days. She reports nothing has made it worse. She reports that she feels hot however denies any known fevers. She does feel like she is unable to take a deep breath at times. She denies any fever, cough, sore throat, palpitations, nausea, vomiting, diarrhea. She has been taking her medications as prescribed. She does report that she takes Plavix. - Related Data Home Medications Medication Instructions Recorded Confirmed Omeprazole [PriLOSEC] 20 mg PO BID 12/15/20 09/16/22 Thiamine [Vitamin B-1] 100 mg PO HS 01/04/21 09/16/22 Atorvastatin [Lipitor] 40 mg PO HS 07/20/21 09/16/22 DULoxetine HCL [Cymbalta] 60 mg PO HS 07/20/21 09/16/22 Atogepant [Qulipta] 60 mg PO HS 06/03/22 09/16/22 Cyclobenzaprine [Flexeril] 10 mg PO TID PRN 06/03/22 09/16/22 HYDROcodone/APAP 10-325MG [[place] 1 tab PO TID PRN 06/03/22 09/16/22 10-325] Albuterol Inhaler [Ventolin Hfa 2 puff INHALATION QID 08/29/22 09/16/22 Inhaler] Aspirin 81 mg PO HS 08/29/22 09/16/22 Clopidogrel [Plavix] 75 mg PO HS 08/29/22 09/16/22 Famotidine [Pepcid] 20 mg PO BID 08/29/22 09/16/22 Hyoscyamine Sulfate [Levsin-Sl] 0.125 mg SL Q4H PRN 08/29/22 09/16/22 Vitamin B-12 (Unknown Dose) 1 tab PO DAILY 09/11/22 09/16/22 Previous Rx's Medication Instructions Recorded Lacosamide [Vimpat] 100 mg PO BID 7 Days #14 tab 01/16/21 Ondansetron Odt [Zofran ODT] 4 mg PO Q8HR PRN #9 tab 06/26/22 Acetaminophen Tab [Tylenol] 650 mg PO Q6H #30 tab 09/16/22 Docusate [Colace] 100 mg PO BID #20 capsule 09/16/22 Ibuprofen [Motrin] 600 mg PO Q6HR PRN #40 tab 09/16/22 oxyCODONE HCL [OxyIR] 5 mg PO Q6H PRN 3 Days #10 tab 09/16/22 Allergies Allergy/AdvReac Type Severity Reaction Status Date / Time dihydroergotamine Allergy Unknown Unknown Verified 10/27/22 18:47 [From Migranal] buprenorphine Allergy Rash/Hives Verified 10/27/22 18:47 gabapentin [From Neurontin] Allergy Itching/Swe Verified 10/27/22 18:47 lling latex Allergy Anaphylaxis Verified 10/27/22 18:47 naproxen [From Naprosyn] Allergy Anaphylaxis Verified 10/27/22 18:47 Penicillins Allergy Anaphylaxis Verified 10/27/22 18:47 prednisone Allergy Swelling Verified 10/27/22 18:47 quetiapine fumarate Allergy Itching, Verified 10/27/22 18:47 [From Seroquel] leg cramps rofecoxib [From Vioxx] Allergy Itching, Verified 10/27/22 18:47 leg cramps terfenadine [From Seldane] Allergy Rash/Hives Verified 10/27/22 18:47 tramadol Allergy Nausea & Verified 10/27/22 18:47 Vomiting/LEG CRAMPS/HEART FLUTTERS calcium carbonate [From DHEA] AdvReac Chest Pain Verified 10/27/22 18:47 calcium phosphate,dibasic AdvReac Chest Pain Verified 10/27/22 18:47 [From DHEA] clindamycin AdvReac muscle Verified 10/27/22 18:47 cramps clonidine AdvReac fast Verified 10/27/22 18:47 heartbeat, migraine dextromethorphan HBr AdvReac face/neck Verified 10/27/22 18:47 [From NyQuil] flushing diazepam [From Valium] AdvReac Nausea & Verified 10/27/22 18:47 Vomiting divalproex sodium AdvReac Nausea & Verified 10/27/22 18:47 [From Depakote] Vomiting doxylamine [From NyQuil] AdvReac face "beet Verified 10/27/22 18:47 red", elevated temp. ibuprofen [From Motrin] AdvReac abdominal Verified 10/27/22 18:47 & muscle cramps indomethacin [From Indocin] AdvReac Abdominal Verified 10/27/22 18:47 Pain,N/V ketorolac tromethamine AdvReac "built up Verified 10/27/22 18:47 [From Toradol] in system", had to be given something to reverse lorazepam [From Ativan] AdvReac Nausea & Verified 10/27/22 18:47 Vomiting memantine [From Namenda] AdvReac Itching Verified 10/27/22 18:47 metoclopramide HCl AdvReac muscle Verified 10/27/22 18:47 [From Reglan] cramps nortriptyline [From Pamelor] AdvReac Chest Pain Verified 10/27/22 18:47 prasterone (DHEA) [From DHEA] AdvReac Chest Pain Verified 10/27/22 18:47 prochlorperazine AdvReac leg Verified 10/27/22 18:47 [From Compazine] cramping propranolol AdvReac Chest Pain Verified 10/27/22 18:47 pseudoephedrine HCl AdvReac face "beet Verified 10/27/22 18:47 [From NyQuil] red", elevated temp. quetiapine [From Seroquel] AdvReac leg Verified 10/27/22 18:47 cramping sumatriptan [From Imitrex] AdvReac migrane Verified 10/27/22 18:47 sumatriptan succinate AdvReac migrane Verified 10/27/22 18:47 [From Imitrex] topiramate [From Topamax] AdvReac "built up Verified 10/27/22 18:47 in system", had to be given something to reverse trazodone AdvReac "built up Verified 10/27/22 18:47 in system", had to be given something to reverse zolpidem tartrate AdvReac "Became Verified 10/27/22 18:47 [From Ambien] violent with no memory" zonisamide [From Zonegran] AdvReac inability Verified 10/27/22 18:47 to eat artificial sweetener AdvReac SEVERE Uncoded 10/27/22 18:47 MIGRAINE HEADACHE prosyn AdvReac Itching Uncoded 10/27/22 18:47 Review of Systems ROS Statement: Those systems with pertinent positive or pertinent negative responses have been documented in the HPI. ROS Other: All systems not noted in ROS Statement are negative. Past Medical History Past Medical History: Hyperlipidemia, Hypertension, Seizure Disorder Additional Past Medical History / Comment(s): Migraines, viral meningitis x3 as a child, 1995, 2000, chronic back pain, nerve blocks 08/2016 and 12/2016. Last seizure 10/10/2020, "ABSENT SEIZURES. HX TACHYCARDIA, GBS/CIPD, PTSD. History of Any Multi-Drug Resistant Organisms: None Reported Past Surgical History: Appendectomy, Section, Cholecystectomy, Heart Catheterization With Stent, Hernia Repair, Hysterectomy, Orthopedic Surgery, Tonsillectomy, Tubal Ligation Additional Past Surgical History / Comment(s): Hiatal Hernia, umbilical hernia repair, left rotator cuff repair, bilateral knee scopes, pain clinic procedures- occipital nerve block. abd exploratory sx(endometreosis), 3 abd scopes 1981, 1989, 1991), lumbar puncture. EGD. nerve biopsy, salvalry gland biospy Past Anesthesia/Blood Transfusion Reactions: No Reported Reaction Additional Past Anesthesia/Blood Transfusion Reaction / Comment(s): Claustrophobic Date of Last Stent Placement:: 06/03/2022 Past Psychological History: Anxiety, Bipolar, Panic Disorder, PTSD Smoking Status: Former smoker Past Alcohol Use History: None Reported Past Drug Use History: None Reported - Past Family History Mother Family Medical History: Cancer, Dementia, Diabetes Mellitus, GERD/Reflux, Hyperlipidemia, Hypertension, Thyroid Disorder Additional Family Medical History / Comment(s): CABG Father History Unknown: Yes Family Medical History: No Reported History General Exam - General Exam Comments Initial Comments: General: Alert, in no acute distress Head: atraumatic normocephalic. Eyes PERRL, EOMI intact, mucous membranes moist Respiratory: Lungs clear to auscultation bilaterally Cardiovascular: Tachycardic Abdominal: Soft without guarding or rebound Extremities: Normal inspection with full range of motion and normal capillary refill Neuroogic: alert and oriented 3, CN II-XII intact, able to ambulate with steady gait Skin: warm dry and intact with normal color Limitations: no limitations Course Vital Signs 10/27/22 10/27/22 10/27/22 18:44 19:38 22:00 Temperature 98.2 F Pulse Rate 125 H 106 H Pulse Rate [ 93 Testboard Operator ] Respiratory 24 16 Rate Blood Pressure 141/101 143/112 O2 Sat by Pulse 99 94 L Oximetry 10/27/22 10/27/22 10/27/22 22:16 23:00 23:14 Temperature Pulse Rate 105 H 84 Pulse Rate [ Testboard Operator ] Respiratory 16 Rate Blood Pressure 150/106 136/104 142/98 O2 Sat by Pulse 96 Oximetry 10/27/22 23:49 Temperature Pulse Rate 92 Pulse Rate [ Testboard Operator ] Respiratory 16 Rate Blood Pressure 147/93 O2 Sat by Pulse 96 Oximetry - Reevaluation(s) Reevaluation #1: 10/27/22 20:48 D-dimer result 3.7. CT angiogram ordered. Reevaluation #2: 10/27/22 22:[address] Hogan, EMS H who agrees and accepts the patient for further observation with recommend consult to cardiology EKG Findings - EKG Comments: EKG Findings:: I interpreted the following: EKG performed at 19:54 rate 163 minute and sinus tachycardia [place] interval 140, QRS duration 67, QT/QTc 316/378 Medical Decision Making - Medical Decision Making Was pt. sent in by a medical professional or institution (, [facility], [employer] WORK[employer], urgent care, hospital, or jail...) When possible be specific @ -[No] Did you speak to anyone other than the patient for history (EMS, parent, family, police, friend...)? What history was obtained from this source @ -[No] Did you review nursing and triage notes (agree or disagree)? Why? @ -[I reviewed and agree with nursing and triage notes] Were old charts reviewed (outside hosp., previous admission, EMS record, old EKG, old radiological studies, urgent care reports/EKG's, jail records)? Report findings @ -[No old charts were reviewed] Differential Diagnosis (chest pain, altered mental status, abdominal pain women, abdominal pain men, vaginal bleeding, weakness, fever, dyspnea, syncope, headache, dizziness, GI bleed, back pain, seizure, CVA, palpatations, mental health, musculoskeletal)? @ -[not applicable] EKG interpreted by me (3pts min.). @ -[As above] X-rays interpreted by me (1pt min.). @ -Chest x-ray unremarkable CT interpreted by me (1pt min.). @ -[None done] U/S interpreted by me (1pt. min.). @ -[None done] What testing was considered but not performed or refused? (CT, X-rays, U/S, labs)? Why? @ -[None] What meds were considered but not given or refused? Why? @ -[None] Did you discuss the management of the patient with other professionals (professionals i.e. DrJesu, PA, S[employer]FFOLD WORKER, lab, RT, psych nurse, protective services social worker, fire services plumber, teacher, correctional program officer, rn case management)? Give summary @ -[No] Was smoking cessation discussed for >3mins.? @ -[No] Was critical care preformed (if so, how long)? @ -[No] Were there social determinants of health that impacted care today? How? (Homelessness, low income, unemployed, alcoholism, drug addiction, transportation, low edu. Level, literacy, decrease access to med. care, half-way, rehab)? @ -[No] Was there de-escalation of care discussed even if they declined (Discuss DNR or withdrawal of care, Hospice)? DNR status @ -[No] What co-morbidities impacted this encounter? (DM, HTN, Smoking, COPD, CAD, Cancer, CVA, ARF, Chemo, Hep., AIDS, mental health diagnosis, sleep apnea, morbid obesity)? @ -[None] Was patient admitted / discharged? Hospital course, mention meds given and route, prescriptions, significant lab abnormalities, going to OR and other pertinent info. @ -Admission. This is a 52-year-old female who is well-known to our emergency department presents to the emergency department with a chief complaint of chest pain. Patient had a thorough history and physical exam performed while in the ED. Physical exam initially reveals a tachycardic female with lungs clear to auscultation bilaterally, abdomen soft and nontender. She's not conversationally dyspneic. Patient had lab work and imaging performed in the ED which revealed: WBC 8.4, hemoglobin 12.2 d-dimer 3.7 sodium 136 potassium 4.4 initial troponin negative Covid influence RSV negative CT angiogram to rule out pulmonary embolism is negative. I discussed the results in detail with the patient verbalized understanding. Patient was given Tylenol, nitro glycerin without symptomatic relief of chest pain. She was given morphine. She is agreeable with the plan for admission with consult to cardiology. Case discussed with [facility], Dr. Hogan who agrees and accepts the patient. Case discussed with Dr. Adams who agrees with plan of care Undiagnosed new problem with uncertain prognosis? @ -[No] Drug Therapy requiring intensive monitoring for toxicity (Heparin, Nitro, Insulin, Cardizem)? @ -[No] Were any procedures done? @ -[No] Diagnosis/symptom? @ -Chest pain Acute, or Chronic, or Acute on Chronic? @ -Acute Uncomplicated (without systemic symptoms) or Complicated (systemic symptoms)? @ -Uncomplicated Side effects of treatment? @ -[No] Exacerbation, Progression, or Severe Exacerbation? @ -[No] Poses a threat to life or bodily function? How? (Chest pain, [place], [place], pneumonia, PE, COPD, DKA, ARF, appy, cholecystitis, CVA, Diverticulitis, Homicidal, Suicidal, threat to staff... and all critical care pts) @ -Moderate Likelihood - Lab Data Result diagrams: 10/27/22 19:38 10/27/22 19:38 Lab Results 10/27/22 10/27/22 10/27/22 Range/Units 19:38 19:38 19:38 WBC 8.4 (3.8-10.6) k/uL RBC 3.88 (3.80-5.40) m/uL Hgb 12.2 (11.4-16.0) gm/dL Hct 36.9 (34.0-46.0) % MCV 95.2 (80.0-100.0) fL MCH 31.4 (25.0-35.0) pg MCHC 33.0 (31.0-37.0) g/dL RDW 13.3 (11.5-15.5) % Plt Count 259 (150-450) k/uL MPV 8.6 Neutrophils % 66 % Lymphocytes % 26 % Monocytes % 5 % Eosinophils % 1 % Basophils % 0 % Neutrophils # 5.5 (1.3-7.7) k/uL Lymphocytes # 2.2 (1.0-4.8) k/uL Monocytes # 0.4 (0-1.0) k/uL Eosinophils # 0.1 (0-0.7) k/uL Basophils # 0.0 (0-0.2) k/uL PT 9.6 (9.0-12.0) sec INR 0.9 (<1.2) APTT 24.3 (22.0-30.0) sec D-Dimer 3.27 H (<0.60) mg/L FEU Sodium 136 L (137-145) mmol/L Potassium 4.4 (3.5-5.1) mmol/L Chloride 102 (98-107) mmol/L Carbon Dioxide 24 (22-30) mmol/L Anion Gap 10 mmol/L BUN 13 (7-17) mg/dL Creatinine 0.85 (0.52-1.04) mg/dL Est GFR (CKD-EPI)AfAm >90 (>60 ml/min/1.73 sqM) Est GFR (CKD-EPI)NonAf 80 (>60 ml/min/1.73 sqM) Glucose 77 (74-99) mg/dL Calcium 8.8 (8.4-10.2) mg/dL Total Bilirubin 0.4 (0.2-1.3) mg/dL AST 24 (14-36) U/L ALT 17 (4-34) U/L Alkaline Phosphatase 135 H (38-126) U/L Troponin I (0.000-0.034) ng/mL Total Protein 6.9 (6.3-8.2) g/dL Albumin 3.9 (3.5-5.0) g/dL Influenza Type A (PCR) (Not Detectd) Influenza Type B (PCR) (Not Detectd) RSV (PCR) (Not Detectd) SARS-CoV-2 (PCR) (Not Detectd) 10/27/22 10/27/22 Range/Units 19:38 19:38 WBC (3.8-10.6) k/uL RBC (3.80-5.40) m/uL Hgb (11.4-16.0) gm/dL Hct (34.0-46.0) % MCV (80.0-100.0) fL MCH (25.0-35.0) pg MCHC (31.0-37.0) g/dL RDW (11.5-15.5) % Plt Count (150-450) k/uL MPV Neutrophils % % Lymphocytes % % Monocytes % % Eosinophils % % Basophils % % Neutrophils # (1.3-7.7) k/uL Lymphocytes # (1.0-4.8) k/uL Monocytes # (0-1.0) k/uL Eosinophils # (0-0.7) k/uL Basophils # (0-0.2) k/uL PT (9.0-12.0) sec INR (<1.2) APTT (22.0-30.0) sec D-Dimer (<0.60) mg/L FEU Sodium (137-145) mmol/L Potassium (3.5-5.1) mmol/L Chloride (98-107) mmol/L Carbon Dioxide (22-30) mmol/L Anion Gap mmol/L BUN (7-17) mg/dL Creatinine (0.52-1.04) mg/dL Est GFR (CKD-EPI)AfAm (>60 ml/min/1.73 sqM) Est GFR (CKD-EPI)NonAf (>60 ml/min/1.73 sqM) Glucose (74-99) mg/dL Calcium (8.4-10.2) mg/dL Total Bilirubin (0.2-1.3) mg/dL AST (14-36) U/L ALT (4-34) U/L Alkaline Phosphatase (38-126) U/L Troponin I <0.012 (0.000-0.034) ng/mL Total Protein (6.3-8.2) g/dL Albumin (3.5-5.0) g/dL Influenza Type A (PCR) Not Detected (Not Detectd) Influenza Type B (PCR) Not Detected (Not Detectd) RSV (PCR) Not Detected (Not Detectd) SARS-CoV-2 (PCR) Not Detected (Not Detectd) Disposition Clinical Impression: Atypical chest pain Disposition: ADMITTED IP TO THIS [facility] Condition: Stable Time of Disposition: 21:45
[2022-10-27 20:18] LABS: Basophils % (A) 0 %; Eosinophils # (A) 0.1 k/uL (0-0.7); Eosinophils % (A) 1 %; HCT 36.9 % (34.0-46.0); HGB 12.2 gm/dL (11.4-16.0); Lymphocytes # (A) 2.2 k/uL (1.0-4.8); Lymphocytes % (A) 26 %; MCH 31.4 pg (25.0-35.0); MCV 95.2 fL (80.0-100.0); Mean Platelet Volume 8.6; Monocytes # (A) 0.4 k/uL (0-1.0); Monocytes % (A) 5 %; Neutrophils # (A) 5.5 k/uL (1.3-7.7); Neutrophils % (A) 66 %; Platelet Count 259 k/uL (150-450); RBC 3.88 m/uL (3.80-5.40); RDW 13.3 % (11.5-15.5); WBC 8.4 k/uL (3.8-10.6)
[2022-10-27 20:30] LABS: INR 0.9 (<1.2); Prothrombin Time 9.6 sec (9.0-12.0)
[2022-10-27 20:31] LABS: Partial Thromboplastin Time 24.3 sec (22.0-30.0)
[2022-10-27 20:40] LABS: ALT 17 U/L (4-34); AST 24 U/L (14-36); African American GFR (CKD) >90 (>60 ml/min/1.73 sqM); Albumin 3.9 g/dL (3.5-5.0); Alkaline Phosphatase 135 U/L (38-126); Anion Gap 10 mmol/L; Blood Urea Nitrogen 13 mg/dL (7-17); Calcium 8.8 mg/dL (8.4-10.2); Carbon Dioxide 24 mmol/L (22-30); Chloride 102 mmol/L (98-107); Glucose 77 mg/dL (74-99); Non-African American GFR(CKD) 80 (>60 ml/min/1.73 sqM); Potassium 4.4 mmol/L (3.5-5.1); Sodium 136 mmol/L (137-145); Total Bilirubin 0.4 mg/dL (0.2-1.3); Total Protein 6.9 g/dL (6.3-8.2)
[2022-10-27] MEDS ORDERED: MORPHINE SULFATE 4 MG/ML SYRINGE IVP STA (21:10)
--- NOTE | 2022-10-27 21:25 | CT ---
EXAMINATION TYPE: CT chest angio for PE CT DLP: 329 mGycm, Automated exposure control for dose reduction was used. DATE OF EXAM: 10/27/2022 9:02 PM COMPARISON: 08/29/2022. CLINICAL INDICATION:Female, 52 years old with history of Dimer 3.27; Chest juliet n, elevated dimer TECHNIQUE/CONTRAST: CTA scan of the thorax is performed with IV Contrast, patient injected with 100 mL of Isovue 370, pul monary embolism protocol. MIP images are created and reviewed these are created on a separate workst [email or web address].. FINDINGS: Pulmonary Artery: There is no evidence for a filling defect within the pulmonary vasculature to sugge st acute pulmonary embolism. The pulmonary artery is of normal size. Lungs/Pleura: No evidence of focal consolidation, pleural effusion or pneumothorax. Airway: Large airways are patent. Heart: Heart is within normal limits for size. Mild atherosclerotic ossifications of the coronary art eries. Vasculature: No evidence of aortic aneurysm. Left chest wall [id number] with tip terminating in th e superior vena cava. Mediastinum: No gross evidence of adenopathy. Musculoskeletal: No acute osseous abnormalities Soft Tissues: Unremarkable. Lower neck: No significant findings. Upper Abdomen: The gallbladder surgically absent. Surgical clips around the gastroesophageal junction . IMPRESSION: No evidence of pulmonary embolism.
[2022-10-27] MEDS ORDERED: NALOXONE 0.4 MG/ML 1 ML VIAL IV PRN (22:03)
[2022-10-27] MEDS ORDERED: ACETAMINOPHEN TAB 325 MG TAB PO PRN (22:03)
[2022-10-27] MEDS: SODIUM CHLORIDE 0.9% 1,000 ML IV SCH (22:15)
[2022-10-27] MEDS ORDERED: LABETALOL 5 MG/ML VIAL MDV IVP STA (22:33)
[2022-10-27] MEDS: MORPHINE SULFATE 4 MG/ML SYRINGE IV PRN (23:40)
[2022-10-28] MEDS: MORPHINE SULFATE 4 MG/ML SYRINGE IV PRN ×5 (04:21→22:59)
[2022-10-28] MEDS ORDERED: AMINOPHYLLINE 500 MG/20 ML VIAL IV PRN (07:57)
[2022-10-28] MEDS ORDERED: CAFFEINE CITRATE 60 MG/3 ML VIAL IV PRN (07:57)
[2022-10-28] MEDS ORDERED: REGADENOSON 0.4 MG/5 ML SYRINGE IV PRN (07:57)
--- NOTE | 2022-10-28 08:57 | P.CRDCN ---
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 Patient has not yet established care in the office with Dr. Corrales. We have been asked to see the patient in consultation for chest pain. Patient states that she has had chest pain and pain into her right jaw and cheek for the past 3 days. She also has a stabbing sensation between her shoulder blades. Pain has been constant and nothing seems to make it better or worse. It is similar to the pain she had in May with her stent placement but more intense. She also has shortness of breath. She denies any syncopal episodes, no lightheadedness or dizziness, no lower extremity edema. She denies having any cough, no fever or chills, no blood in her stools or urine. She does have history of seizures but no recent seizure activity. She quit smoking in February 2022. EKG reveals sinus mechanism with no signs of acute ischemia, ventricular rate of 106 Chest x-ray no acute process Chest CT: Negative for pulmonary embolism. CBC is unremarkable. D-dimer 3.27. Sodium 136 otherwise electrolytes and renal function are normal. Alkaline phosphatase 135 otherwise liver function tests are normal. Troponin negative 3. Influenza A, influenza B, RSV, Covid 19 not detected. Current home cardiac medications include aspirin 81 mg at bedtime, atorvastatin 40 mg at bedtime, Plavix 75 mg at bedtime Cardiac catheterization history: 06/03/2022 with stenting to the mid LAD Echocardiogram 08/30/2022 revealed LVH with preserved systolic function. Tilt table test 08/30/2022 showed no evidence of neurocardiogenic syncope dysautonomia. Cardiac catheterization 06/03/2022 revealed coronary artery disease with 60-70% mid LAD stenosis status post mid LAD stent and balloon dilation REVIEW OF SYSTEMS: At the time of my exam: CONSTITUTIONAL: Denies fever or chills. HEENT: Denies blurred vision, vision changes, or eye pain. Denies hemoptysis CARDIOVASCULAR: Denies chest pain. Denies orthopnea. Denies PND. Denies palpit ations RESPIRATORY: Denies shortness of breath. GASTROINTESTINAL: Denies abdominal pain. Denies nausea or vomiting. HEMATOLOGIC: Denies bleeding disorders. GENITOURINARY: Denies any blood in urine. SKIN: Denies pruitis. Denies rash. PHYSICAL EXAM: VITAL SIGNS: Reviewed. GENERAL: Well-developed in no acute distress. HEENT: Head is normocephalic. Pupils are equal, round. Sclerae anicteric. Mucous membranes of the mouth are moist. Neck supple. No JVD or thyromegaly LUNGS: Respirations even and unlabored. Lungs essentially clear to auscultation bilaterally. HEART: Regular rate and rhythm. S1 and S2 heard. ABDOMEN: Soft. Nondistended. Nontender. EXTREMITIES: Normal range of motion. No clubbing or cyanosis. Peripheral pulses intact. No lower extremity edema NEUROLOGIC: Awake and alert. Oriented x 3. ASSESSMENT: Chest pain Coronary artery disease with stenting to the mid LAD, May 2022 Hyperlipidemia Seizure disorder Migraines Anxiety Bipolar disorder PTSD Jayna Cárdenas PLAN: Continue patient's home cardiac medications Schedule patient for Lexiscan stress test today No need to repeat echocardiogram as this was performed in August If Lexiscan stress test is within normal limits, patient is cleared for discharge. If this is abnormal, patient would be evaluated for cardiac catheterization. Thank you kindly for this consultation Nurse practitioner note has been reviewed by physician. Signing provider agrees with the documented findings, assessment, and plan of care. Past Medical History Past Medical History: Hyperlipidemia, Hypertension, Seizure Disorder Additional Past Medical History / Comment(s): Migraines, viral meningitis x3 as a child, 1995, 2000, chronic back pain, nerve blocks 08/2016 and 12/2016. Last seizure 10/10/2020, "ABSENT SEIZURES. HX TACHYCARDIA, GBS/CIPD, PTSD. History of Any Multi-Drug Resistant Organisms: None Reported Past Surgical History: Appendectomy, Section, Cholecystectomy, Heart Catheterization With Stent, Hernia Repair, Hysterectomy, Orthopedic Surgery, Tonsillectomy, Tubal Ligation Additional Past Surgical History / Comment(s): Hiatal Hernia, umbilical hernia repair, left rotator cuff repair, bilateral knee scopes, pain clinic procedures- occipital nerve block. abd exploratory sx(endometreosis), 3 abd scopes 1981, 1989, 1991), lumbar puncture. EGD. nerve biopsy, salvalry gland biospy Past Anesthesia/Blood Transfusion Reactions: No Reported Reaction Additional Past Anesthesia/Blood Transfusion Reaction / Comment(s): Claustrophobic Date of Last Stent Placement:: 06/03/2022 Past Psychological History: Anxiety, Bipolar, Panic Disorder, PTSD Additional Psychological History / Comment(s): lives at home. Smoking Status: Former smoker Past Alcohol Use History: None Reported Additional Past Alcohol Use History / Comment(s): SMOKED [id number] Past Drug Use History: None Reported - Past Family History Mother Family Medical History: Cancer, Dementia, Diabetes Mellitus, GERD/Reflux, Hyperlipidemia, Hypertension, Thyroid Disorder Additional Family Medical History / Comment(s): CABG Father History Unknown: Yes Family Medical History: No Reported History Medications and Allergies Home Medications Medication Instructions Recorded Confirmed Type Omeprazole [PriLOSEC] 20 mg PO BID 12/15/20 10/28/22 History Thiamine [Vitamin B-1] 100 mg PO HS 01/04/21 10/28/22 History Lacosamide [Vimpat] 100 mg PO BID 7 Days #14 tab 01/16/21 10/28/22 Rx Atorvastatin [Lipitor] 40 mg PO HS 07/20/21 10/28/22 History DULoxetine HCL [Cymbalta] 60 mg PO HS 07/20/21 10/28/22 History Atogepant [Qulipta] 60 mg PO HS 06/03/22 10/28/22 History Cyclobenzaprine [Flexeril] 10 mg PO TID PRN 06/03/22 10/28/22 History HYDROcodone/APAP 10-325MG [[place] 1 tab PO TID PRN 06/03/22 10/28/22 History 10-325] Ondansetron Odt [Zofran ODT] 4 mg PO Q8HR PRN #9 tab 06/26/22 10/28/22 Rx Albuterol Inhaler [Ventolin Hfa 2 puff INHALATION RT-QID PRN 08/29/22 10/28/22 History Inhaler] Aspirin 81 mg PO HS 08/29/22 10/28/22 History Clopidogrel [Plavix] 75 mg PO HS 08/29/22 10/28/22 History Famotidine [Pepcid] 20 mg PO BID 08/29/22 10/28/22 History Hyoscyamine Sulfate [Levsin-Sl] 0.125 mg SL Q4H PRN 08/29/22 10/28/22 History Vitamin B-12 (Unknown Dose) 1 tab PO DAILY 09/11/22 10/28/22 History Allergies Allergy/AdvReac Type Severity Reaction Status Date / Time dihydroergotamine Allergy Unknown Unknown Verified 10/28/22 06:58 [From Migranal] buprenorphine Allergy Rash/Hives Verified 10/28/22 06:58 gabapentin [From Neurontin] Allergy Itching/Swe Verified 10/28/22 06:58 lling latex Allergy Anaphylaxis Verified 10/28/22 06:58 naproxen [From Naprosyn] Allergy Anaphylaxis Verified 10/28/22 06:58 Penicillins Allergy Anaphylaxis Verified 10/28/22 06:58 prednisone Allergy Swelling Verified 10/28/22 06:58 quetiapine fumarate Allergy Itching, Verified 10/28/22 06:58 [From Seroquel] leg cramps rofecoxib [From Vioxx] Allergy Itching, Verified 10/28/22 06:58 leg cramps terfenadine [From Seldane] Allergy Rash/Hives Verified 10/28/22 06:58 calcium carbonate [From DHEA] AdvReac Chest Pain Verified 10/28/22 06:58 calcium phosphate,dibasic AdvReac Chest Pain Verified 10/28/22 06:58 [From DHEA] clindamycin AdvReac muscle Verified 10/28/22 06:58 cramps clonidine AdvReac fast Verified 10/28/22 06:58 heartbeat, migraine dextromethorphan HBr AdvReac face/neck Verified 10/28/22 06:58 [From NyQuil] flushing diazepam [From Valium] AdvReac Nausea & Verified 10/28/22 06:58 Vomiting divalproex sodium AdvReac Nausea & Verified 10/28/22 06:58 [From Depakote] Vomiting doxylamine [From NyQuil] AdvReac face "beet Verified 10/28/22 06:58 red", elevated temp. ibuprofen [From Motrin] AdvReac abdominal Verified 10/28/22 06:58 & muscle cramps indomethacin [From Indocin] AdvReac Abdominal Verified 10/28/22 06:58 Pain,N/V ketorolac tromethamine AdvReac "built up Verified 10/28/22 06:58 [From Toradol] in system", had to be given something to reverse lorazepam [From Ativan] AdvReac Nausea & Verified 10/28/22 06:58 Vomiting memantine [From Namenda] AdvReac Itching Verified 10/28/22 06:58 metoclopramide HCl AdvReac muscle Verified 10/28/22 06:58 [From Reglan] cramps nortriptyline [From Pamelor] AdvReac Chest Pain Verified 10/28/22 06:58 prasterone (DHEA) [From DHEA] AdvReac Chest Pain Verified 10/28/22 06:58 prochlorperazine AdvReac leg Verified 10/28/22 06:58 [From Compazine] cramping propranolol AdvReac Chest Pain Verified 10/28/22 06:58 pseudoephedrine HCl AdvReac face "beet Verified 10/28/22 06:58 [From NyQuil] red", elevated temp. quetiapine [From Seroquel] AdvReac leg Verified 10/28/22 06:58 cramping sumatriptan [From Imitrex] AdvReac migrane Verified 10/28/22 06:58 sumatriptan succinate AdvReac migrane Verified 10/28/22 06:58 [From Imitrex] topiramate [From Topamax] AdvReac "built up Verified 10/28/22 06:58 in system", had to be given something to reverse tramadol AdvReac Nausea & Verified 10/28/22 06:58 Vomiting/LEG CRAMPS/HEART FLUTTERS trazodone AdvReac "built up Verified 10/28/22 06:58 in system", had to be given something to reverse zolpidem tartrate AdvReac "Became Verified 10/28/22 06:58 [From Ambien] violent with no memory" zonisamide [From Zonegran] AdvReac inability Verified 10/28/22 06:58 to eat artificial sweetener AdvReac SEVERE Uncoded 10/27/22 18:47 MIGRAINE HEADACHE prosyn AdvReac Itching Uncoded 10/27/22 18:47 Physical Exam Vitals: Vital Signs Temp Pulse Pulse Resp BP BP Pulse Ox 10/28/22 02:43 99 16 10/28/22 00:50 97.8 F 99 16 145/88 98 10/28/22 00:00 97 19 137/70 95 10/27/22 23:49 92 16 147/93 96 10/27/22 23:14 142/98 10/27/22 23:00 84 16 136/104 96 10/27/22 22:16 105 H 150/106 10/27/22 22:00 106 H 16 143/112 94 L 10/27/22 19:38 93 10/27/22 18:44 98.2 F 125 H 24 141/101 99 Intake and Output 10/27/22 10/28/22 10/28/22 22:59 06:59 14:59 Other: # Voids 2 Weight 79 kg 79 kg Results 10/27/22 19:38 10/27/22 19:38 Cardiac Enzymes 10/27/22 10/27/22 10/28/22 Range/Units 19:38 19:38 00:16 AST 24 (14-36) U/L Troponin I <0.012 <0.012 (0.000-0.034) ng/mL 10/28/22 Range/Units 03:11 AST (14-36) U/L Troponin I <0.012 (0.000-0.034) ng/mL Coagulation 10/27/22 Range/Units 19:38 PT 9.6 (9.0-12.0) sec APTT 24.3 (22.0-30.0) sec CBC 10/27/22 Range/Units 19:38 WBC 8.4 (3.8-10.6) k/uL RBC 3.88 (3.80-5.40) m/uL Hgb 12.2 (11.4-16.0) gm/dL Hct 36.9 (34.0-46.0) % Plt Count 259 (150-450) k/uL Comprehensive Metabolic Panel 10/27/22 Range/Units 19:38 Sodium 136 L (137-145) mmol/L Potassium 4.4 (3.5-5.1) mmol/L Chloride 102 (98-107) mmol/L Carbon Dioxide 24 (22-30) mmol/L BUN 13 (7-17) mg/dL Creatinine 0.85 (0.52-1.04) mg/dL Glucose 77 (74-99) mg/dL Calcium 8.8 (8.4-10.2) mg/dL AST 24 (14-36) U/L ALT 17 (4-34) U/L Alkaline Phosphatase 135 H (38-126) U/L Total Protein 6.9 (6.3-8.2) g/dL Albumin 3.9 (3.5-5.0) g/dL Current Medications Generic Name Dose Route Start Last Admin Trade Name Freq PRN Reason Stop Dose Admin Acetaminophen 650 mg 10/27/22 22:03 Acetaminophen Tab 325 Mg Tab PO Q6HR PRN Mild Pain or Fever > 100.5 Sodium Chloride 1,000 mls @ 75 mls/hr 10/27/22 22:15 10/27/22 22:15 Saline 0.9% IV 75 mls/hr .[id number] PAMELA Administration Morphine Sulfate 4 mg 10/27/22 22:03 10/28/22 04:21 Morphine Sulfate 4 Mg/Ml Syringe IV 4 mg Q4HR PRN Administration Severe Pain (Scale 7 to 10) Naloxone HCl 0.2 mg 10/27/22 22:03 Naloxone 0.4 Mg/Ml 1 Ml Vial IV Q2M PRN Opioid Reversal Intake and Output 10/27/22 10/28/22 10/28/22 22:59 06:59 14:59 Other: # Voids 2 Weight 79 kg 79 kg 10/27/22 19:38 10/27/22 19:38
[2022-10-28] MEDS ORDERED: ALBUTEROL NEBULIZED 2.5 MG/3 ML INHALATION PRN (10:27)
[2022-10-28] MEDS ORDERED: ONDANSETRON ODT 4 MG TAB PO PRN (10:27)
[2022-10-28] MEDS ORDERED: HYOSCYAMINE SULFATE 0.125 MG TAB PO PRN (10:27)
[2022-10-28] MEDS ORDERED: CYCLOBENZAPRINE 10 MG TAB PO PRN (10:27)
--- NOTE | 2022-10-28 11:41 | CA ---
Lexiscan Nuclear Stress Test Report Name: Shaniqua Garza Exam Date: 10/28/2022 10:25 Exam Location: [facility] Ht (in): 63 Wt (lb): 174 BSA: 1.82 Ordering Phys: Katelyn Bassett Referring Phys: DIANNE, Technologist: RUDY,, Age: 52 Gender: F : 1970 Procedure CPT: Indications: Reflex order-Stress test ICD-10 Codes: Patient History: Chest pain and shortenss of breath Medications: Meds past 24 hrs: Pretest Chest Pain: STRESS TEST Lexiscan Protocol Exercise Duration (min:sec): 01:[address] Depressions (mm): Angina Score: Aaron Score: Resting HR (bpm): 85 Peak HR (bpm): 94 Resting BP (mmHg): 124 / 80 Peak BP (mmHg): 122 / 80 MPHR: 170 Target HR: 145 % MPHR: 55 METS: 1.0 Total Dose: Peak Dose: Atropine: Double Product: 98977 BP Response: Stress Termination: INFUSION COMPLETE Stress Symptoms: CHEST DISCOMFORT Stress Summary: ECG ANALYSIS Resting ECG: Sinus rhythm. Normal conduction. No arrhythmias. Normal repolarization. Stress ECG: No ECG changes from baseline with Lexiscan infusion. CONCLUSIONS No ECG evidence of ischemia with Lexiscan infusion. Nuclear test results to follow. Dr. Joni Matt MD (Electronically Signed) Final Date: 28 October 2022 11:40
[2022-10-28] MEDS: LACOSAMIDE 50 MG TABLET PO SCH ×2 (13:00→21:11)
[2022-10-28] MEDS: SODIUM CHLORIDE 0.9% 1,000 ML IV SCH ×2 (13:00→22:49)
[2022-10-28] MEDS: PANTOPRAZOLE 40 MG TABLET PO SCH (13:00)
--- NOTE | 2022-10-28 15:32 | P.HPIM ---
History of Present Illness H&P Date: 10/28/22 This is a 52 year old female with history of attention, hyperlipidemia, seizure disorder, migraines, coronary artery disease with prior cardiac stenting most recently in May of this year, former smoker. Patient presents with concern for right-sided neck pain as well as burning pain between her shoulder blades in the back assessment ongoing for last 3 days. Patient states that she tried massage, tylenol and pressure point therapy with no relief of symptoms. Patient did not take nitro at home did not have any. No shortness of breath, no dizziness or lightheadedness. Reports no recent injury or strenuous activity. Initial work up reveals normal white count, normal hemoglobin, D-Dimer 3.27, sodium of 136, troponin level negative x 3. Negative for Covid, RSV and Influenza. Chest CTA is negative for pulmonary embolism. Cardiology evaluated the patient and recommending Lexiscan stress test. REVIEW OF SYSTEMS: CONSTITUTIONAL: No fever, no malaise, no fatigue. HEENT: No recent visual problems or hearing problems. Denied any sore throat. CARDIOVASCULAR:mid back and neck pain, orthopnea, PND, no palpitations, no syncope. PULMONARY: No shortness of breath, no cough, no hemoptysis. GASTROINTESTINAL: No diarrhea, no nausea, no vomiting, no abdominal pain. NEUROLOGICAL: No headaches, no weakness, no numbness. HEMATOLOGICAL: Denies any bleeding or petechiae. GENITOURINARY: Denies any burning micturition, frequency, or urgency. MUSCULOSKELETAL/RHEUMATOLOGICAL: Denies any joint pain, swelling, or any muscle pain. ENDOCRINE: Denies any polyuria or polydipsia. The rest of the 14-point review of systems is negative. PHYSICAL EXAMINATION: GENERAL: The patient is alert and oriented x3, not in any acute distress. Well developed, well nourished. HEENT: Pupils are round and equally reacting to light. EOMI. No scleral icterus. No conjunctival pallor. Normocephalic, atraumatic. No pharyngeal erythema. No thyromegaly. CARDIOVASCULAR: S1 and S2 present. No murmurs, rubs, or gallops. PULMONARY: Chest is clear to auscultation, no wheezing or crackles. ABDOMEN: Soft, nontender, nondistended, normoactive bowel sounds. No palpable organomegaly. MUSCULOSKELETAL: No joint swelling or deformity. EXTREMITIES: No cyanosis, clubbing, or pedal edema. NEUROLOGICAL: Gross neurological examination did not reveal any focal deficits. SKIN: No rashes. Assessment and plan Neck and back pain Rule out acute coronary syndrome History of seizure disorder History of migraines Coronary artery disease with prior PCI Obesity Elevated D-Dimer CTA negative for PE History of chronic back pain Anxiety/Depression/Bipolar disorder GI prophylaxis DVT prophylaxis Full Code Plan Cardiology following Lexiscan stress test today D/C home if negative stress test Resume appropriate home medications The impression and plan of care has been dictated by Ramona Lance Nurse Practitioner as directed. Dr. Michael MD I have performed a history and physical examination and medical decision making of this patient, discussed the same with the dictator, and agree with the dictators assessment and plan as written, documented as a scribe. Based on total visit time, I have performed more than 50% of this visit. Past Medical History Past Medical History: Hyperlipidemia, Hypertension, Seizure Disorder Additional Past Medical History / Comment(s): Migraines, viral meningitis x3 as a child, 1995, 2000, chronic back pain, nerve blocks 08/2016 and 12/2016. Last seizure 10/10/2020, "ABSENT SEIZURES. HX TACHYCARDIA, GBS/CIPD, PTSD. History of Any Multi-Drug Resistant Organisms: None Reported Past Surgical History: Appendectomy, Section, Cholecystectomy, Heart Catheterization With Stent, Hernia Repair, Hysterectomy, Orthopedic Surgery, Tonsillectomy, Tubal Ligation Additional Past Surgical History / Comment(s): Hiatal Hernia, umbilical hernia repair, left rotator cuff repair, bilateral knee scopes, pain clinic procedures- occipital nerve block. abd exploratory sx(endometreosis), 3 abd scopes 1981, 1989, 1991), lumbar puncture. EGD. nerve biopsy, salvalry gland biospy Past Anesthesia/Blood Transfusion Reactions: No Reported Reaction Additional Past Anesthesia/Blood Transfusion Reaction / Comment(s): Claustrophobic Date of Last Stent Placement:: 06/03/2022 Past Psychological History: Anxiety, Bipolar, Panic Disorder, PTSD Additional Psychological History / Comment(s): lives at home. Smoking Status: Former smoker Past Alcohol Use History: None Reported Additional Past Alcohol Use History / Comment(s): SMOKED [id number] Past Drug Use History: None Reported - Past Family History Mother Family Medical History: Cancer, Dementia, Diabetes Mellitus, GERD/Reflux, Hyperlipidemia, Hypertension, Thyroid Disorder Additional Family Medical History / Comment(s): CABG Father History Unknown: Yes Family Medical History: No Reported History Medications and Allergies Home Medications Medication Instructions Recorded Confirmed Type Omeprazole [PriLOSEC] 20 mg PO BID 12/15/20 10/28/22 History Thiamine [Vitamin B-1] 100 mg PO HS 01/04/21 10/28/22 History Lacosamide [Vimpat] 100 mg PO BID 7 Days #14 tab 01/16/21 10/28/22 Rx Atorvastatin [Lipitor] 40 mg PO HS 07/20/21 10/28/22 History DULoxetine HCL [Cymbalta] 60 mg PO HS 07/20/21 10/28/22 History Atogepant [Qulipta] 60 mg PO HS 06/03/22 10/28/22 History Cyclobenzaprine [Flexeril] 10 mg PO TID PRN 06/03/22 10/28/22 History HYDROcodone/APAP 10-325MG [[place] 1 tab PO TID PRN 06/03/22 10/28/22 History 10-325] Ondansetron Odt [Zofran ODT] 4 mg PO Q8HR PRN #9 tab 06/26/22 10/28/22 Rx Albuterol Inhaler [Ventolin Hfa 2 puff INHALATION RT-QID PRN 08/29/22 10/28/22 History Inhaler] Aspirin 81 mg PO HS 08/29/22 10/28/22 History Clopidogrel [Plavix] 75 mg PO HS 08/29/22 10/28/22 History Famotidine [Pepcid] 20 mg PO BID 08/29/22 10/28/22 History Hyoscyamine Sulfate [Levsin-Sl] 0.125 mg SL Q4H PRN 08/29/22 10/28/22 History Vitamin B-12 (Unknown Dose) 1 tab PO DAILY 09/11/22 10/28/22 History Allergies Allergy/AdvReac Type Severity Reaction Status Date / Time dihydroergotamine Allergy Unknown Unknown Verified 10/28/22 06:58 [From Migranal] buprenorphine Allergy Rash/Hives Verified 10/28/22 06:58 gabapentin [From Neurontin] Allergy Itching/Swe Verified 10/28/22 06:58 lling latex Allergy Anaphylaxis Verified 10/28/22 06:58 naproxen [From Naprosyn] Allergy Anaphylaxis Verified 10/28/22 06:58 Penicillins Allergy Anaphylaxis Verified 10/28/22 06:58 prednisone Allergy Swelling Verified 10/28/22 06:58 quetiapine fumarate Allergy Itching, Verified 10/28/22 06:58 [From Seroquel] leg cramps rofecoxib [From Vioxx] Allergy Itching, Verified 10/28/22 06:58 leg cramps terfenadine [From Seldane] Allergy Rash/Hives Verified 10/28/22 06:58 calcium carbonate [From DHEA] AdvReac Chest Pain Verified 10/28/22 06:58 calcium phosphate,dibasic AdvReac Chest Pain Verified 10/28/22 06:58 [From DHEA] clindamycin AdvReac muscle Verified 10/28/22 06:58 cramps clonidine AdvReac fast Verified 10/28/22 06:58 heartbeat, migraine dextromethorphan HBr AdvReac face/neck Verified 10/28/22 06:58 [From NyQuil] flushing diazepam [From Valium] AdvReac Nausea & Verified 10/28/22 06:58 Vomiting divalproex sodium AdvReac Nausea & Verified 10/28/22 06:58 [From Depakote] Vomiting doxylamine [From NyQuil] AdvReac face "beet Verified 10/28/22 06:58 red", elevated temp. ibuprofen [From Motrin] AdvReac abdominal Verified 10/28/22 06:58 & muscle cramps indomethacin [From Indocin] AdvReac Abdominal Verified 10/28/22 06:58 Pain,N/V ketorolac tromethamine AdvReac "built up Verified 10/28/22 06:58 [From Toradol] in system", had to be given something to reverse lorazepam [From Ativan] AdvReac Nausea & Verified 10/28/22 06:58 Vomiting memantine [From Namenda] AdvReac Itching Verified 10/28/22 06:58 metoclopramide HCl AdvReac muscle Verified 10/28/22 06:58 [From Reglan] cramps nortriptyline [From Pamelor] AdvReac Chest Pain Verified 10/28/22 06:58 prasterone (DHEA) [From DHEA] AdvReac Chest Pain Verified 10/28/22 06:58 prochlorperazine AdvReac leg Verified 10/28/22 06:58 [From Compazine] cramping propranolol AdvReac Chest Pain Verified 10/28/22 06:58 pseudoephedrine HCl AdvReac face "beet Verified 10/28/22 06:58 [From NyQuil] red", elevated temp. quetiapine [From Seroquel] AdvReac leg Verified 10/28/22 06:58 cramping sumatriptan [From Imitrex] AdvReac migrane Verified 10/28/22 06:58 sumatriptan succinate AdvReac migrane Verified 10/28/22 06:58 [From Imitrex] topiramate [From Topamax] AdvReac "built up Verified 10/28/22 06:58 in system", had to be given something to reverse tramadol AdvReac Nausea & Verified 10/28/22 06:58 Vomiting/LEG CRAMPS/HEART FLUTTERS trazodone AdvReac "built up Verified 10/28/22 06:58 in system", had to be given something to reverse zolpidem tartrate AdvReac "Became Verified 10/28/22 06:58 [From Ambien] violent with no memory" zonisamide [From Zonegran] AdvReac inability Verified 10/28/22 06:58 to eat artificial sweetener AdvReac SEVERE Uncoded 10/27/22 18:47 MIGRAINE HEADACHE prosyn AdvReac Itching Uncoded 10/27/22 18:47 Physical Exam Vitals: Vital Signs Temp Pulse Pulse Pulse Resp BP BP 10/28/22 07:00 97.8 F 90 15 98/65 10/28/22 02:43 99 16 10/28/22 00:50 97.8 F 99 16 145/88 10/28/22 00:00 97 19 137/70 10/27/22 23:49 92 16 147/93 10/27/22 23:14 142/98 10/27/22 23:00 84 16 136/104 10/27/22 22:16 105 H 150/106 10/27/22 22:00 106 H 16 143/112 10/27/22 19:38 93 10/27/22 18:44 98.2 F 125 H 24 141/101 Pulse Ox 10/28/22 07:00 97 10/28/22 02:43 10/28/22 00:50 98 10/28/22 00:00 95 10/27/22 23:49 96 10/27/22 23:14 10/27/22 23:00 96 10/27/22 22:16 10/27/22 22:00 94 L 10/27/22 19:38 10/27/22 18:44 99 Intake and Output 10/27/22 10/28/22 10/28/22 22:59 06:59 14:59 Other: # Voids 2 Weight 79 kg 79 kg Results CBC & Chem 7: 10/27/22 19:38 10/27/22 19:38 Labs: Abnormal Lab Results - Last 24 Hours (Table) 10/27/22 10/27/22 Range/Units 19:38 19:38 D-Dimer 3.27 H (<0.60) mg/L FEU Sodium 136 L (137-145) mmol/L Alkaline Phosphatase 135 H (38-126) U/L Thrombosis Risk Factor Assmnt - Choose All That Apply Any of the Below Risk Factors Present?: Yes Each Factor Represents 1 point: Age 41-60 years, Obesity (BMI >25) Other Risk Factors: No Other congenital or acquired thrombophilia - If yes, enter type in comment: No Thrombosis Risk Factor Assessment Total Risk Factor Score: 2 Thrombosis Risk Factor Assessment Level: Low Risk Assessment and Plan Time with Patient: Less than 30
[2022-10-28] MEDS: CLOPIDOGREL 75 MG TAB PO SCH (21:11)
[2022-10-28] MEDS: DULoxetine HCL 60 MG CAPSULE.DR PO SCH (21:11)
[2022-10-28] MEDS: THIAMINE 100 MG TAB PO SCH (21:11)
[2022-10-28] MEDS: HYDROcodone/APAP 10-325MG 1 EACH TAB PO PRN (21:11)
[2022-10-28] MEDS: ATORVASTATIN 40 MG TAB PO SCH (21:11)
[2022-10-28] MEDS: FAMOTIDINE 20 MG TAB PO SCH (21:11)
[2022-10-28] MEDS: ASPIRIN 81 MG PO SCH (21:11)
[2022-10-28] MEDS: NON FORMULARY DRUG (Atogepant [Qulipta] 60 MG Tablet) PO SCH (21:14)
[2022-10-29] MEDS ORDERED: diphenhydrAMINE 25 MG CAP PO STA (01:33)
[2022-10-29] MEDS: MORPHINE SULFATE 4 MG/ML SYRINGE IV PRN ×6 (02:40→21:56)
[2022-10-29] MEDS: PANTOPRAZOLE 40 MG TABLET PO SCH (06:15)
[2022-10-29] MEDS: FAMOTIDINE 20 MG TAB PO SCH ×2 (08:55→21:56)
[2022-10-29] MEDS: LACOSAMIDE 50 MG TABLET PO SCH ×2 (08:55→21:56)
--- NOTE | 2022-10-29 09:47 | P.PN ---
Subjective Progress Note Date: 10/29/22 HISTORY OF PRESENT ILLNESS: This is a 52-year-old female with a past medical history significant for co ronary artery disease with stenting to the mid LAD, hyperlipidemia, seizure disorder, migraines, anxiety, bipolar disorder, PTSD, Jayna Cárdenas syndrome. Patient has not yet established care in the office with Dr. Corrales. We have been asked to see the patient in consultation for chest pain. Patient states that she has had chest pain and pain into her right jaw and cheek for the past 3 days. She also has a stabbing sensation between her shoulder blades. Pain has been constant and nothing seems to make it better or worse. It is similar to the pain she had in May with her stent placement but more intense. She also has shortness of breath. She denies any syncopal episodes, no lighth eadedness or dizziness, no lower extremity edema. She denies having any cough, no fever or chills, no blood in her stools or urine. She does have history of seizures but no recent seizure activity. She quit smoking in February 2022. EKG reveals sinus mechanism with no signs of acute ischemia, ventricular rate of 106 Chest x-ray no acute process Chest CT: Negative for pulmonary embolism. CBC is unremarkable. D-dimer 3.27. Sodium 136 otherwise electrolytes and renal function are normal. Alkaline phosphatase 135 otherwise liver function tests are normal. Troponin negative 3. Influenza A, influenza B, RSV, Covid 19 not detected. Current home cardiac medications include aspirin 81 mg at bedtime, atorvastatin 40 mg at bedtime, Plavix 75 mg at bedtime Cardiac catheterization history: 06/03/2022 with stenting to the mid LAD Echocardiogram 08/30/2022 revealed LVH with preserved systolic function. Tilt table test 08/30/2022 showed no evidence of neurocardiogenic syncope dysautonomia. Cardiac catheterization 06/03/2022 revealed coronary artery disease with 60-70% mid LAD stenosis status post mid LAD stent and balloon dilation 10/29 Patient underwent Lexiscan stress test yesterday and a clear report is still pending. Patient states she is still having chest pain that is present when she takes a deep breath. She states her breathing was better after updraft treatment. She complains of a cough. Blood pressures 143/89, heart rate in the 80s and 90s. PHYSICAL EXAM: VITAL SIGNS: Reviewed. GENERAL: Well-developed in no acute distress. HEENT: Head is normocephalic. Pupils are equal, round. Sclerae anicteric. Mucous membranes of the mouth are moist. Neck supple. No JVD or thyromegaly LUNGS: Respirations even and unlabored. Lungs essentially clear to auscultation bilaterally. HEART: Regular rate and rhythm. S1 and S2 heard. ABDOMEN: Soft. Nondistended. Nontender. EXTREMITIES: Normal range of motion. No clubbing or cyanosis. Peripheral pulses intact. No lower extremity edema NEUROLOGIC: Awake and alert. Oriented x 3. ASSESSMENT: Chest pain, acute coronary syndrome ruled out, appears to be musculoskeletal in nature Coronary artery disease with stenting to the mid LAD, May 2022 Hyperlipidemia Seizure disorder Migraines Anxiety Bipolar disorder PTSD Jayna Cárdenas PLAN: Continue patient's home cardiac medications Await nuclear report on Lexiscan stress test No need to repeat echocardiogram as this was performed in August If Lexiscan stress test is within normal limits, patient is cleared for discharge. If this is abnormal, patient would be evaluated for cardiac catheterization. Thank you kindly for this consultation Nurse practitioner note has been reviewed by physician. Signing provider agrees with the documented findings, assessment, and plan of care. Objective - Vital Signs Vital signs: Vital Signs Temp 97.7 F 10/29/22 01:26 Pulse 98 10/29/22 01:26 Resp 15 10/29/22 01:26 BP 153/102 10/29/22 01:26 Pulse Ox 98 10/29/22 01:26 FiO2 Intake & Output 10/28/22 10/29/22 10/29/22 18:59 06:59 18:59 Other: # Voids 1 1 - Labs CBC & Chem 7: 10/27/22 19:38 10/27/22 19:38
[2022-10-29] MEDS ORDERED: ALPRAZolam 0.25 MG TAB PO STA (10:59)
[2022-10-29] MEDS: HYDROcodone/APAP 10-325MG 1 EACH TAB PO PRN (12:36)
--- NOTE | 2022-10-29 14:41 | NM ---
EXAMINATION TYPE: NM stress lexiscan cardiolite DATE OF EXAM: 10/28/2022 COMPARISON: NONE CLINICAL INDICATION: Female, 52 years old with history of CP; TECHNIQUE: After the intravenous administration of 9.7 mCi Tc 99m Sestamibi - Cardiolite resting SPE CT images acquired 60 minutes post injection. The patient received 0.4mg Lexiscan, 24.7 mCi Tc 99m Sestamibi - Stress images obtained [address] injection FINDINGS: Review of stress and rest SPECT images demonstrates no stress-induced distinct perfusion abnormality. Small Fixed defect noted lateral wall. Gated analysis shows normal wall motion with an estimated lef t ventricular ejection fraction of 51 %. IMPRESSION: No scintigraphic evidence for reversible ischemia.
[2022-10-29] MEDS: SODIUM CHLORIDE 0.9% 1,000 ML IV SCH (15:16)
[2022-10-29] MEDS: CLOPIDOGREL 75 MG TAB PO SCH (21:56)
[2022-10-29] MEDS: ASPIRIN 81 MG PO SCH (21:56)
[2022-10-29] MEDS: ATORVASTATIN 40 MG TAB PO SCH (21:56)
[2022-10-29] MEDS: DULoxetine HCL 60 MG CAPSULE.DR PO SCH (21:56)
[2022-10-29] MEDS: THIAMINE 100 MG TAB PO SCH (21:56)
[2022-10-29] MEDS: NON FORMULARY DRUG (Atogepant [Qulipta] 60 MG Tablet) PO SCH (22:56)
[2022-10-30] MEDS: HYDROcodone/APAP 10-325MG 1 EACH TAB PO PRN ×3 (00:45→15:16)
[2022-10-30] MEDS: MORPHINE SULFATE 4 MG/ML SYRINGE IV PRN ×2 (01:39→06:08)
[2022-10-30 02:56] VITALS: RESP 17
[2022-10-30] MEDS: SODIUM CHLORIDE 0.9% 1,000 ML IV SCH (03:44)
[2022-10-30] MEDS: PANTOPRAZOLE 40 MG TABLET PO SCH (06:08)
[2022-10-30 08:09] VITALS: BP 129/83; PULSE 104; TEMP 98.3
--- NOTE | 2022-10-30 08:13 | XR ---
EXAMINATION TYPE: XR thoracic spine 2V DATE OF EXAM: 10/29/2022 5:53 PM INDICATION: Patient age:Female; 52 years old; Reason for study: pain; COMPARISON: 10/27/2022 TECHNIQUE: 2 views of the thoracic spine in Frontal and lateral projections. FINDINGS: No evidence of acute fracture. There is scattered multilevel disk space narrowing without loss of ve rtebral body height. There is normal alignment of the thoracic vertebral bodies. Scattered osteophyte formation along the anterior and lateral aspects of the vertebral bodies. Neural foramen are patent given limitations of this exam. Spinal canal appears patent._Atherosclerosis of the arterial vasculat ure. Central venous catheter tip in appropriate position. IMPRESSION: No acute osseous pathology.
[2022-10-30] MEDS: LACOSAMIDE 50 MG TABLET PO SCH (08:51)
[2022-10-30] MEDS: FAMOTIDINE 20 MG TAB PO SCH (08:51)
--- NOTE | 2022-10-30 09:26 | P.PN ---
Subjective Progress Note Date: 10/29/22 This is a 52 year old female with history of attention, hyperlipidemia, seizure disorder, migraines, coronary artery disease with prior cardiac stenting most recently in May of this year, former smoker. Patient presents with concern for right-sided neck pain as well as burning pain between her shoulder blades in the back assessment ongoing for last 3 days. Patient states that she tried massage, tylenol and pressure point therapy with no relief of symptoms. Patient did not take nitro at home did not have any. No shortness of breath, no dizziness or lightheadedness. Reports no recent injury or strenuous activity. Initial work up reveals normal white count, normal hemoglobin, D-Dimer 3.27, sodium of 136, troponin level negative x 3. Negative for Covid, RSV and Influenza. Chest CTA is negative for pulmonary embolism. Cardiology evaluated the patient and recommending Lexiscan stress test. 10/29/2022 Patient is evaluated today sitting up in bed. Patient is report mid back pain non radiating and achy 10/10. There is no focal tenderness, pain is not worse with palpation. Patient feels fatigued. Patient is receiving IV morphine for pain management states is not helping the pain. Lexiscan stress test is negative and cardiology have cleared the patient to follow up in the office. Patient is offered xanax for anxiety and confirms she has no allergy to benzodiazepines as listed in the emar. Will check an xray of thoracic spine. Review of Systems Constitutional: Denied any fatigue denied any fever. Cardio vascular: denied any chest pain, palpitations Gastrointestinal: denied any nausea, vomiting, diarrhea Pulmonary: Denied any shortness of breath cough Neurologic denied any new focal deficits reports back pain. All inpatient medications were reviewed and appropriate changes in these medications as dictated in the interval history and assessment and plan. PHYSICAL EXAMINATION: GENERAL: The patient is alert and oriented x3, not in any acute distress. Well developed, well nourished. HEENT: Pupils are round and equally reacting to light. EOMI. No scleral icterus. No conjunctival pallor. Normocephalic, atraumatic. No pharyngeal erythema. No thyromegaly. CARDIOVASCULAR: S1 and S2 present. No murmurs, rubs, or gallops. PULMONARY: Chest is clear to auscultation, no wheezing or crackles. ABDOMEN: Soft, nontender, nondistended, normoactive bowel sounds. No palpable organomegaly. MUSCULOSKELETAL: No joint swelling or deformity. EXTREMITIES: No cyanosis, clubbing, or pedal edema. NEUROLOGICAL: Gross neurological examination did not reveal any focal deficits. SKIN: No rashes. Assessment and plan Neck and back pain Atypical chest pain acute coronary syndrome is ruled out History of seizure disorder History of migraines Coronary artery disease with prior PCI Obesity Elevated D-Dimer CTA negative for PE History of chronic back pain Anxiety/Depression/Bipolar disorder GI prophylaxis DVT prophylaxis Full Code Plan Cardiology following Lexiscan stress test completed and pending review Thoracic xray ordered Continue with pain management The impression and plan of care has been dictated by Ramona Lance Nurse Practitioner as directed. Dr. Michael MD I have performed a history and physical examination and medical decision making of this patient, discussed the same with the dictator, and agree with the dictators assessment and plan as written, documented as a scribe. Based on total visit time, I have performed more than 50% of this visit. Objective - Vital Signs Vital signs: Vital Signs Temp 98.1 F 10/29/22 19:06 Pulse 101 H 10/29/22 19:06 Resp 15 10/29/22 19:06 BP 132/85 10/29/22 19:06 Pulse Ox 96 10/29/22 19:06 FiO2 Intake & Output 10/29/22 10/29/22 10/30/22 06:59 18:59 06:59 Intake Total 830 Balance 830 Intake: Oral 830 Other: # Voids 1 3 - Labs CBC & Chem 7: 10/27/22 19:38 10/27/22 19:38 Assessment and Plan Time with Patient: Less than 30
--- NOTE | 2022-10-30 09:35 | P.DS ---
Providers Date of admission: 10/27/22 23:53 Attending physician: Ashlee Smart MD Consults: 10/27/22 22:03 Consult Physician Routine Consulting Provider: Eddie Corrales Consult Reason/Comments: Chest pain Do you want consulting provider notified?: Yes Primary care physician: José Reece Hospital Course: Final Diagnosis Neck and back pain acute on chronic Atypical chest pain acute coronary syndrome is ruled out History of seizure disorder History of migraines Coronary artery disease with prior PCI Obesity Elevated D-Dimer CTA negative for PE History of chronic back pain Anxiety/Depression/Bipolar disorder Full Code Discharge Disposition Patient is stable for discharge home. Patient to follow up with cardiology in the office in 1 week. Recommend to see PCP in 1 to 2 days. Hospital Course This is a 52 year old female with history of attention, hyperlipidemia, seizure disorder, migraines, coronary artery disease with prior cardiac stenting most recently in May of this year, former smoker. Patient presents with concern for right-sided neck pain as well as burning pain between her shoulder blades in the back assessment ongoing for last 3 days. Patient states that she tried massage, tylenol and pressure point therapy with no relief of symptoms. Patient did not take nitro at home did not have any. No shortness of breath, no dizziness or lightheadedness. Reports no recent injury or strenuous activity. Initial work up reveals normal white count, normal hemoglobin, D-Dimer 3.27, sodium of 136, troponin level negative x 3. Negative for Covid, RSV and Influenza. Chest CTA is negative for pulmonary embolism. Cardiology evaluated the patient and recommending Lexiscan stress test which was performed and negative for reversible ischemia. EF is 51%. There is s small fixed defect noted lateral wall. Patient underwent thoracic xray which reveals no acute osseous abnormality. Patient is given a xanax yesterday for anxiety. Continued to report mid back pain. Patient received pain management with IV morphine. Recommended to see cardiology and PCP on discharge. Patient may benefit from outpatient physical therapy and further evaluation by orthopedics regarding the back pain. Discharge home with the above mentioned recommendations. Patient denies any shortness of breath, no nausea, vomiting or diarrhea, no migraine, or focal neurological deficits. Patients telemetry reviewed no noted arrythmias patient maintains sinus rhythm. Lungs are clear S1 S2 auscultated abdomen is soft and nontender. Please see medication reconciliation for a list of current medication. Thank you for allowing us to participate in the care of this patient. The impression and plan of care has been dictated by Ramona Lance, Nurse Practitioner as directed. Dr. Michael MD I have performed a history and physical examination and medical decision making of this patient, discussed the same with the dictator, and agree with the dictators assessment and plan as written, documented as a scribe. Based on total visit time, I have performed more than 50% of this visit. Patient Condition at Discharge: Stable Plan - Discharge Summary Discharge Rx Participant: No New Discharge Prescriptions: New Nitroglycerin Sl Tabs [Nitrostat] 0.4 mg SUBLINGUAL Q5M PRN #25 tab PRN Reason: Chest Pain Continue Thiamine [Vitamin B-1] 100 mg PO HS Atorvastatin [Lipitor] 40 mg PO HS HYDROcodone/APAP 10-325MG [Vance 10-325] 1 tab PO TID PRN PRN Reason: Pain Cyclobenzaprine [Flexeril] 10 mg PO TID PRN PRN Reason: Pain Atogepant [Qulipta] 60 mg PO HS Ondansetron Odt [Zofran ODT] 4 mg PO Q8HR PRN #9 tab PRN Reason: Nausea Albuterol Inhaler [Ventolin Hfa Inhaler] 2 puff INHALATION RT-QID PRN PRN Reason: Shortness Of Breath Hyoscyamine Sulfate [Levsin-Sl] 0.125 mg SL Q4H PRN PRN Reason: Gi Upset Clopidogrel [Plavix] 75 mg PO HS Aspirin 81 mg PO HS Omeprazole [PriLOSEC] 20 mg PO BID Lacosamide [Vimpat] 100 mg PO BID 7 Days #14 tab DULoxetine HCL [Cymbalta] 60 mg PO HS Famotidine [Pepcid] 20 mg PO BID Vitamin B-12 (Unknown Dose) 1 tab PO DAILY Discharge Medication List Omeprazole [PriLOSEC] 20 mg PO BID 12/15/20 [History] Thiamine [Vitamin B-1] 100 mg PO HS 01/04/21 [History] Lacosamide [Vimpat] 100 mg PO BID 7 Days #14 tab 01/16/21 [Rx] Atorvastatin [Lipitor] 40 mg PO HS 07/20/21 [History] DULoxetine HCL [Cymbalta] 60 mg PO HS 07/20/21 [History] Atogepant [Qulipta] 60 mg PO HS 06/03/22 [History] Cyclobenzaprine [Flexeril] 10 mg PO TID PRN 06/03/22 [History] HYDROcodone/APAP 10-325MG [Vance 10-325] 1 tab PO TID PRN 06/03/22 [History] Ondansetron Odt [Zofran ODT] 4 mg PO Q8HR PRN #9 tab 06/26/22 [Rx] Albuterol Inhaler [Ventolin Hfa Inhaler] 2 puff INHALATION RT-QID PRN 08/29/22 [History] Aspirin 81 mg PO HS 08/29/22 [History] Clopidogrel [Plavix] 75 mg PO HS 08/29/22 [History] Famotidine [Pepcid] 20 mg PO BID 08/29/22 [History] Hyoscyamine Sulfate [Levsin-Sl] 0.125 mg SL Q4H PRN 08/29/22 [History] Vitamin B-12 (Unknown Dose) 1 tab PO DAILY 09/11/22 [History] Nitroglycerin Sl Tabs [Nitrostat] 0.4 mg SUBLINGUAL Q5M PRN #25 tab 10/28/22 [Rx] Follow up Appointment(s)/Referral(s): José Reece MD [Primary Care Provider] - 1-2 days Eddie Corrales DO [Family Provider] - 1 Week Patient Instructions/Handouts: Chest Pain (DC) Activity/Diet/Wound Care/Special Instructions: Follow up with cardiology in 1 week Nitro SL has been sent in for acute onset of chest pain Recommend to follow up with orthopedics regarding the back pain Discharge Disposition: HOME SELF-CARE
--- NOTE | 2022-10-30 10:41 | P.PN ---
Subjective Progress Note Date: 10/30/22 HISTORY OF PRESENT ILLNESS: This is a 52-year-old female with a past medical history significant for co ronary artery disease with stenting to the mid LAD, hyperlipidemia, seizure disorder, migraines, anxiety, bipolar disorder, PTSD, Jayna Cárdenas syndrome. Patient has not yet established care in the office with Dr. Corrales. We have been asked to see the patient in consultation for chest pain. Patient states that she has had chest pain and pain into her right jaw and cheek for the past 3 days. She also has a stabbing sensation between her shoulder blades. Pain has been constant and nothing seems to make it better or worse. It is similar to the pain she had in May with her stent placement but more intense. She also has shortness of breath. She denies any syncopal episodes, no lighth eadedness or dizziness, no lower extremity edema. She denies having any cough, no fever or chills, no blood in her stools or urine. She does have history of seizures but no recent seizure activity. She quit smoking in February 2022. EKG reveals sinus mechanism with no signs of acute ischemia, ventricular rate of 106 Chest x-ray no acute process Chest CT: Negative for pulmonary embolism. CBC is unremarkable. D-dimer 3.27. Sodium 136 otherwise electrolytes and renal function are normal. Alkaline phosphatase 135 otherwise liver function tests are normal. Troponin negative 3. Influenza A, influenza B, RSV, Covid 19 not detected. Current home cardiac medications include aspirin 81 mg at bedtime, atorvastatin 40 mg at bedtime, Plavix 75 mg at bedtime Cardiac catheterization history: 06/03/2022 with stenting to the mid LAD Echocardiogram 08/30/2022 revealed LVH with preserved systolic function. Tilt table test 08/30/2022 showed no evidence of neurocardiogenic syncope dysautonomia. Cardiac catheterization 06/03/2022 revealed coronary artery disease with 60-70% mid LAD stenosis status post mid LAD stent and balloon dilation 10/29 Patient underwent Lexiscan stress test yesterday and a clear report is still pending. Patient states she is still having chest pain that is present when she takes a deep breath. She states her breathing was better after updraft treatment. She complains of a cough. Blood pressures 143/89, heart rate in the 80s and 90s. 10/30 Patient states she is really unchanged from yesterday still having some chest pain when she takes a deep breath. Vital signs have been stable. Impression of stress test was negative. PHYSICAL EXAM: VITAL SIGNS: Reviewed. GENERAL: Well-developed in no acute distress. HEENT: Head is normocephalic. Pupils are equal, round. Sclerae anicteric. Mucous membranes of the mouth are moist. Neck supple. No JVD or thyromegaly LUNGS: Respirations even and unlabored. Lungs essentially clear to auscultation bilaterally. HEART: Regular rate and rhythm. S1 and S2 heard. ABDOMEN: Soft. Nondistended. Nontender. EXTREMITIES: Normal range of motion. No clubbing or cyanosis. Peripheral pulses intact. No lower extremity edema NEUROLOGIC: Awake and alert. Oriented x 3. ASSESSMENT: Chest pain, acute coronary syndrome ruled out, appears to be musculoskeletal in nature Coronary artery disease with stenting to the mid LAD, May 2022 Hyperlipidemia Seizure disorder Migraines Anxiety Bipolar disorder PTSD Jayna Cárdenas PLAN: Continue patient's home cardiac medications Patient is cleared for discharge and patient may follow-up in the office in one weeksment, and plan of care. Objective - Vital Signs Vital signs: Vital Signs Temp 98.3 F 10/30/22 07:00 Pulse 104 H 10/30/22 07:00 Resp 17 10/30/22 07:00 BP 129/83 10/30/22 07:00 Pulse Ox 93 L 10/30/22 07:00 FiO2 Intake & Output 10/29/22 10/30/22 10/30/22 18:59 06:59 18:59 Intake Total 830 Balance 830 Intake: Oral 830 Other: # Voids 3 2 - Labs CBC & Chem 7: 10/27/22 19:38 10/27/22 19:38
== END 2022-10-30 15:35 | disposition home or self-care (01) ==
LOC: EC 18:43 → 6NMEDSUR 23:53
PROVIDERS: ADMIT Internal Medicine; ATTEND Internal Medicine
DX: R07.89 Other chest pain (principal); M54.6 Pain in thoracic spine; G89.29 Other chronic pain; I25.10 Atherosclerotic heart disease of native coronary artery without angina pectoris; E66.9 Obesity, unspecified; R79.89 Other specified abnormal findings of blood chemistry; M19.012 Primary osteoarthritis, left shoulder; M19.011 Primary osteoarthritis, right shoulder; I10 Essential (primary) hypertension; E78.5 Hyperlipidemia, unspecified; G40.909 Epilepsy, unspecified, not intractable, without status epilepticus; F43.10 Post-traumatic stress disorder, unspecified; F41.0 Panic disorder [episodic paroxysmal anxiety]; F31.9 Bipolar disorder, unspecified; Z79.02 Long term (current) use of antithrombotics/antiplatelets; Z79.899 Other long term (current) drug therapy; Z79.82 Long term (current) use of aspirin; Z91.040 Latex allergy status; Z88.0 Allergy status to penicillin; Z88.8 Allergy status to other drugs, medicaments and biological substances; Z90.49 Acquired absence of other specified parts of digestive tract; Z95.5 Presence of coronary angioplasty implant and graft; Z98.51 Tubal ligation status; Z90.710 Acquired absence of both cervix and uterus; Z87.891 Personal history of nicotine dependence; Z83.3 Family history of diabetes mellitus; Z83.79 Family history of other diseases of the digestive system; Z82.49 Family history of ischemic heart disease and other diseases of the circulatory system; Z83.49 Family history of other endocrine, nutritional and metabolic diseases; Z84.89 Family history of other specified conditions; Z82.0 Family history of epilepsy and other diseases of the nervous system; Z80.9 Family history of malignant neoplasm, unspecified; Z20.822 Contact with and (suspected) exposure to COVID-19; Z68.30 Body mass index [BMI] 30.0-30.9, adult
CPT/HCPCS: 96361 ×2; 96374; 96375; 99285; 36415; 94640; 93005; 93017; 85379; 80053; 84443; 84484 ×2; 85025; 85610; 85730; 87636; 72070; 71046; 71275; 78452; G0378 ×3; A9500; J2270 ×4; J2785; Q9967

== ENCOUNTER 2022-11-07 11:34 | Observation (INO) | payer OTHER ==
--- NOTE | 2022-11-07 12:46 | ED ---
General Adult HPI - General Chief complaint: Arrhythmia/Palpitations Stated complaint: syncope Time Seen by Provider: 11/07/22 12:20 Source: patient, RN notes reviewed, old records reviewed Mode of arrival: wheelchair - History of Present Illness Initial comments: This is a 52-year-old female presents emergency Department stating that she woke up this morning with it up and passed out immediately. Patient states she had no chest pain no difficulty breathing or shortness of breath. Patient denies any palpitations. Patient denies headache patient denies numbness weakness. Patient denies being lightheaded while lying in bed. Patient states she has heart monitor on because she had multiple syncopal episodes in the past. Patient states the heart monitor people called her and told her to come to the emergency department. Patient denies abdominal pain patient denies nausea vomiting diarrhea. Patient denies any recent fever chills or cough. - Related Data Home Medications Medication Instructions Recorded Confirmed Omeprazole [PriLOSEC] 20 mg PO HS 12/15/20 11/07/22 Thiamine [Vitamin B-1] 100 mg PO HS 01/04/21 11/07/22 Atorvastatin [Lipitor] 40 mg PO HS 07/20/21 11/07/22 DULoxetine HCL [Cymbalta] 60 mg PO HS 07/20/21 11/07/22 Atogepant [Qulipta] 60 mg PO HS 06/03/22 11/07/22 Cyclobenzaprine [Flexeril] 10 mg PO TID PRN 06/03/22 11/07/22 HYDROcodone/APAP 10-325MG [Dawson 1 tab PO TID PRN 06/03/22 11/07/22 10-325] Albuterol Inhaler [Ventolin Hfa 2 puff INHALATION RT-QID PRN 08/29/22 11/07/22 Inhaler] Aspirin 81 mg PO HS 08/29/22 11/07/22 Clopidogrel [Plavix] 75 mg PO HS 08/29/22 11/07/22 Famotidine [Pepcid] 20 mg PO HS 08/29/22 11/07/22 Hyoscyamine Sulfate [Levsin-Sl] 0.125 mg SL Q4H PRN 08/29/22 11/07/22 Vitamin B-12 (Unknown Dose) 1 tab PO HS 09/11/22 11/07/22 Lacosamide [Vimpat] 100 mg PO HS 11/07/22 11/07/22 Naloxone HCl [Narcan] 4 mg NASAL ONCE PRN 11/07/22 11/07/22 Previous Rx's Medication Instructions Recorded Ondansetron Odt [Zofran ODT] 4 mg PO Q8HR PRN #9 tab 06/26/22 Nitroglycerin Sl Tabs [Nitrostat] 0.4 mg SUBLINGUAL Q5M PRN #25 tab 10/28/22 Allergies Allergy/AdvReac Type Severity Reaction Status Date / Time dihydroergotamine Allergy Unknown Unknown Verified 11/07/22 13:45 [From Migranal] buprenorphine Allergy Rash/Hives Verified 11/07/22 13:45 gabapentin [From Neurontin] Allergy Itching/Swe Verified 11/07/22 13:45 lling latex Allergy Anaphylaxis Verified 11/07/22 13:45 naproxen [From Naprosyn] Allergy Anaphylaxis Verified 11/07/22 13:45 Penicillins Allergy Anaphylaxis Verified 11/07/22 13:45 prednisone Allergy Swelling Verified 11/07/22 13:45 quetiapine fumarate Allergy Itching, Verified 11/07/22 13:45 [From Seroquel] leg cramps rofecoxib [From Vioxx] Allergy Itching, Verified 11/07/22 13:45 leg cramps terfenadine [From Seldane] Allergy Rash/Hives Verified 11/07/22 13:45 calcium carbonate [From DHEA] AdvReac Chest Pain Verified 11/07/22 13:45 calcium phosphate,dibasic AdvReac Chest Pain Verified 11/07/22 13:45 [From DHEA] clindamycin AdvReac muscle Verified 11/07/22 13:45 cramps clonidine AdvReac fast Verified 11/07/22 13:45 heartbeat, migraine dextromethorphan HBr AdvReac face/neck Verified 11/07/22 13:45 [From NyQuil] flushing diazepam [From Valium] AdvReac Nausea & Verified 11/07/22 13:45 Vomiting divalproex sodium AdvReac Nausea & Verified 11/07/22 13:45 [From Depakote] Vomiting doxylamine [From NyQuil] AdvReac face "beet Verified 11/07/22 13:45 red", elevated temp. ibuprofen [From Motrin] AdvReac abdominal Verified 11/07/22 13:45 & muscle cramps indomethacin [From Indocin] AdvReac Abdominal Verified 11/07/22 13:45 Pain,N/V ketorolac tromethamine AdvReac "built up Verified 11/07/22 13:45 [From Toradol] in system", had to be given something to reverse lorazepam [From Ativan] AdvReac Nausea & Verified 11/07/22 13:45 Vomiting memantine [From Namenda] AdvReac Itching Verified 11/07/22 13:45 metoclopramide HCl AdvReac muscle Verified 11/07/22 13:45 [From Reglan] cramps nortriptyline [From Pamelor] AdvReac Chest Pain Verified 11/07/22 13:45 prasterone (DHEA) [From DHEA] AdvReac Chest Pain Verified 11/07/22 13:45 prochlorperazine AdvReac leg Verified 11/07/22 13:45 [From Compazine] cramping propranolol AdvReac Chest Pain Verified 11/07/22 13:45 pseudoephedrine HCl AdvReac face "beet Verified 11/07/22 13:45 [From NyQuil] red", elevated temp. quetiapine [From Seroquel] AdvReac leg Verified 11/07/22 13:45 cramping sumatriptan [From Imitrex] AdvReac migrane Verified 11/07/22 13:45 sumatriptan succinate AdvReac migrane Verified 11/07/22 13:45 [From Imitrex] topiramate [From Topamax] AdvReac "built up Verified 11/07/22 13:45 in system", had to be given something to reverse tramadol AdvReac Nausea & Verified 11/07/22 13:45 Vomiting/LEG CRAMPS/HEART FLUTTERS trazodone AdvReac "built up Verified 11/07/22 13:45 in system", had to be given something to reverse zolpidem tartrate AdvReac "Became Verified 11/07/22 13:45 [From Ambien] violent with no memory" zonisamide [From Zonegran] AdvReac inability Verified 11/07/22 13:45 to eat artificial sweetener AdvReac SEVERE Uncoded 11/07/22 12:05 MIGRAINE HEADACHE prosyn AdvReac Itching Uncoded 11/07/22 12:05 Review of Systems ROS Statement: Those systems with pertinent positive or pertinent negative responses have been documented in the HPI. ROS Other: All systems not noted in ROS Statement are negative. Past Medical History Past Medical History: Hyperlipidemia, Hypertension, Seizure Disorder Additional Past Medical History / Comment(s): Migraines, viral meningitis x3 as a child, 1995, 2000, chronic back pain, nerve blocks 08/2016 and 12/2016. Last seizure 10/10/2020, "ABSENT SEIZURES. HX TACHYCARDIA, GBS/CIPD, PTSD. History of Any Multi-Drug Resistant Organisms: None Reported Past Surgical History: Appendectomy, Section, Cholecystectomy, Heart Catheterization With Stent, Hernia Repair, Hysterectomy, Orthopedic Surgery, Tonsillectomy, Tubal Ligation Additional Past Surgical History / Comment(s): Hiatal Hernia, umbilical hernia repair, left rotator cuff repair, bilateral knee scopes, pain clinic procedures- occipital nerve block. abd exploratory sx(endometreosis), 3 abd scopes 1981, 1989, 1991), lumbar puncture. EGD. nerve biopsy, salvalry gland biospy Past Anesthesia/Blood Transfusion Reactions: No Reported Reaction Additional Past Anesthesia/Blood Transfusion Reaction / Comment(s): Claustrophobic Date of Last Stent Placement:: 06/03/2022 Past Psychological History: Anxiety, Bipolar, Panic Disorder, PTSD Smoking Status: Former smoker Past Alcohol Use History: None Reported Past Drug Use History: None Reported - Past Family History Mother Family Medical History: Cancer, Dementia, Diabetes Mellitus, GERD/Reflux, Hyperlipidemia, Hypertension, Thyroid Disorder Additional Family Medical History / Comment(s): CABG Father History Unknown: Yes Family Medical History: No Reported History General Exam - General Exam Comments Initial Comments: GENERAL: Patient is well-developed and well-nourished. Patient is nontoxic and well- hydrated and is in no acute distress. ENT: Neck is soft and supple. No significant lymphadenopathy is noted. Oropharynx is clear. Moist mucous membranes. Neck has full range of motion without eliciting any pain. EYES: The sclera were anicteric and conjunctiva were pink and moist. Extraocular movements were intact and pupils were equal round and reactive to light. Eyelids were unremarkable. PULMONARY: Unlabored respirations. Good breath sounds bilaterally. No audible rales rhonchi or wheezing was noted. CARDIOVASCULAR: There is a regular rate and rhythm without any murmurs gallops or rubs. ABDOMEN: Soft and nontender with normal bowel sounds. SKIN: Skin is clear with no lesions or rashes and otherwise unremarkable. NEUROLOGIC: Patient is alert and oriented x3. Cranial nerves II through XII are grossly intact. Motor and sensory are also intact. Normal speech, volume and content. Symmetrical smile. MUSCULOSKELETAL: Normal extremities with adequate strength and full range of motion. LYMPHATICS: No significant lymphadenopathy is noted PSYCHIATRIC: Normal psychiatric evaluation. Course Vital Signs 11/07/22 12:02 Temperature 98 F Pulse Rate 114 H Respiratory 18 Rate Blood Pressure 128/85 O2 Sat by Pulse 100 Oximetry Medical Decision Making - Medical Decision Making EKG was interpreted by myself. EKG shows a sinus rhythm at 90 bpm [place] interval 146 QRS is 73 QT interval 349 QTC is 404. Patient's EKG shows no ST segment elevation or depression. Was pt. sent in by a medical professional or institution (, PA, CLINICAL DIETETIC TECHNICIAN, urgent care, hospital, or intermediate...) When possible be specific @ -No Did you speak to anyone other than the patient for history (EMS, parent, family, police, friend...)? What history was obtained from this source @ -No Did you review nursing and triage notes (agree or disagree)? Why? @ -I reviewed and agree with nursing and triage notes Were old charts reviewed (outside hosp., previous admission, EMS record, old EKG, old radiological studies, urgent care reports/EKG's, intermediate records)? Report findings @ -Review prior charts and prior lab work on this patient Differential Diagnosis (chest pain, altered mental status, abdominal pain women, abdominal pain men, vaginal bleeding, weakness, fever, dyspnea, syncope, headache, dizziness, GI bleed, back pain, seizure, CVA, palpatations, mental health, musculoskeletal)? @ -Differential Syncope: Valvular disease, hypertrophic cardiomyopathy, pulmonary embolism, tamponade, tachycardia, bradycardia, SC, hypovolemia, hemorrhage, dissection, anemia, intracranial hemorrhage, seizure, hypoglycemia, carbon monoxide poisoning, this is not meant to be an all-inclusive list. EKG interpreted by me (3pts min.). @ -As above X-rays interpreted by me (1pt min.). @ -Chest x-ray shows no acute abnormality CT interpreted by me (1pt min.). @ -None done U/S interpreted by me (1pt. min.). @ -None done What testing was considered but not performed or refused? (CT, X-rays, U/S, labs)? Why? @ -None What meds were considered but not given or refused? Why? @ -None Did you discuss the management of the patient with other professionals (professionals i.e. , PA, CLINICAL DIETETIC TECHNICIAN, lab, RT, psych nurse, social services technician, fur stylist, teacher, planned giving officer, employment case manager)? Give summary @ -I spoke with [facility] hospitalist Was smoking cessation discussed for >3mins.? @ -No Was critical care preformed (if so, how long)? @ -No Were there social determinants of health that impacted care today? How? (Homelessness, low income, unemployed, alcoholism, drug addiction, transportation, low edu. Level, literacy, decrease access to med. care, prison, rehab)? @ -No Was there de-escalation of care discussed even if they declined (Discuss DNR or withdrawal of care, Hospice)? DNR status @ -No What co-morbidities impacted this encounter? (DM, HTN, Smoking, COPD, CAD, Cancer, CVA, ARF, Chemo, Hep., AIDS, mental health diagnosis, sleep apnea, morbid obesity)? @ -None Was patient admitted / discharged? Hospital course, mention meds given and route, prescriptions, significant lab abnormalities, going to OR and other pertinent info. @ -Patient had no syncopal episodes in the emergency department. Nursing contacted the monitoring system for the patient's heart monitor and they told the nurse that the patient had an episode of tachycardia at about 120 and it was a sinus tach. I spoke with the [facility] hospitalist and they agreed to admit the patient admitted the patient wrote admitting orders Undiagnosed new problem with uncertain prognosis? @ -No Drug Therapy requiring intensive monitoring for toxicity (Heparin, Nitro, Insulin, Cardizem)? @ -No Were any procedures done? @ -No Diagnosis/symptom? @ -Syncope and Collapse Acute, or Chronic, or Acute on Chronic? @ -Acute Uncomplicated (without systemic symptoms) or Complicated (systemic symptoms)? @ -Complicated Side effects of treatment? @ -No Exacerbation, Progression, or Severe Exacerbation? @ -No Poses a threat to life or bodily function? How? (Chest pain, USA, SC, pneumonia, PE, COPD, DKA, ARF, appy, cholecystitis, CVA, Diverticulitis, Homicidal, Suicidal, threat to staff... and all critical care pts) @ -No - Lab Data Result diagrams: 11/07/22 14:10 11/07/22 14:10 Lab Results 11/07/22 11/07/22 11/07/22 Range/Units 14:10 14:10 14:10 WBC 7.3 (3.8-10.6) k/uL RBC 3.70 L (3.80-5.40) m/uL Hgb 11.5 (11.4-16.0) gm/dL Hct 34.7 (34.0-46.0) % MCV 93.9 (80.0-100.0) fL MCH 31.2 (25.0-35.0) pg MCHC 33.2 (31.0-37.0) g/dL RDW 13.3 (11.5-15.5) % Plt Count 259 (150-450) k/uL MPV 8.5 Neutrophils % 70 % Lymphocytes % 20 % Monocytes % 5 % Eosinophils % 3 % Basophils % 0 % Neutrophils # 5.2 (1.3-7.7) k/uL Lymphocytes # 1.4 (1.0-4.8) k/uL Monocytes # 0.4 (0-1.0) k/uL Eosinophils # 0.2 (0-0.7) k/uL Basophils # 0.0 (0-0.2) k/uL PT 9.7 (9.0-12.0) sec INR 0.9 (<1.2) APTT 22.4 (22.0-30.0) sec Sodium 138 (137-145) mmol/L Potassium 3.8 (3.5-5.1) mmol/L Chloride 104 (98-107) mmol/L Carbon Dioxide 26 (22-30) mmol/L Anion Gap 8 mmol/L BUN 7 (7-17) mg/dL Creatinine 0.79 (0.52-1.04) mg/dL Est GFR (CKD-EPI)AfAm >90 (>60 ml/min/1.73 sqM) Est GFR (CKD-EPI)NonAf 88 (>60 ml/min/1.73 sqM) Glucose 95 (74-99) mg/dL Calcium 8.8 (8.4-10.2) mg/dL Magnesium 2.0 (1.6-2.3) mg/dL Total Bilirubin 0.4 (0.2-1.3) mg/dL AST 31 (14-36) U/L ALT 26 (4-34) U/L Alkaline Phosphatase 148 H (38-126) U/L Troponin I (0.000-0.034) ng/mL Total Protein 7.1 (6.3-8.2) g/dL Albumin 4.2 (3.5-5.0) g/dL 11/07/22 Range/Units 14:10 WBC (3.8-10.6) k/uL RBC (3.80-5.40) m/uL Hgb (11.4-16.0) gm/dL Hct (34.0-46.0) % MCV (80.0-100.0) fL MCH (25.0-35.0) pg MCHC (31.0-37.0) g/dL RDW (11.5-15.5) % Plt Count (150-450) k/uL MPV Neutrophils % % Lymphocytes % % Monocytes % % Eosinophils % % Basophils % % Neutrophils # (1.3-7.7) k/uL Lymphocytes # (1.0-4.8) k/uL Monocytes # (0-1.0) k/uL Eosinophils # (0-0.7) k/uL Basophils # (0-0.2) k/uL PT (9.0-12.0) sec INR (<1.2) APTT (22.0-30.0) sec Sodium (137-145) mmol/L Potassium (3.5-5.1) mmol/L Chloride (98-107) mmol/L Carbon Dioxide (22-30) mmol/L Anion Gap mmol/L BUN (7-17) mg/dL Creatinine (0.52-1.04) mg/dL Est GFR (CKD-EPI)AfAm (>60 ml/min/1.73 sqM) Est GFR (CKD-EPI)NonAf (>60 ml/min/1.73 sqM) Glucose (74-99) mg/dL Calcium (8.4-10.2) mg/dL Magnesium (1.6-2.3) mg/dL Total Bilirubin (0.2-1.3) mg/dL AST (14-36) U/L ALT (4-34) U/L Alkaline Phosphatase (38-126) U/L Troponin I <0.012 (0.000-0.034) ng/mL Total Protein (6.3-8.2) g/dL Albumin (3.5-5.0) g/dL Disposition Clinical Impression: Syncope and collapse Disposition: ADMITTED IP TO THIS HOSP Referrals: José Reece MD [Primary Care Provider] - 1-2 days Time of Disposition: 15:03
--- NOTE | 2022-11-07 14:22 | XR ---
EXAMINATION TYPE: XR chest 2V DATE OF EXAM: 11/07/2022 COMPARISON: 10/27/2022 TECHNIQUE: PA and lateral views submitted. HISTORY: Dysrhythmia FINDINGS: The lungs are clear and there is no pneumothorax, pleural effusion, or focal pneumonia. Heart size normal and no overt failure. Osseous structures demonstrate hypertrophic and degenerative changes of the spine. Reduced lung volumes. Mediport catheter noted with the tip overlying SVC. Bilateral AC kristy nt arthropathy. Surgical clips in the abdomen. IMPRESSION: 1. No acute process.
[2022-11-07 14:27] LABS: Basophils % (A) 0 %; Eosinophils # (A) 0.2 k/uL (0-0.7); Eosinophils % (A) 3 %; HCT 34.7 % (34.0-46.0); HGB 11.5 gm/dL (11.4-16.0); Lymphocytes # (A) 1.4 k/uL (1.0-4.8); Lymphocytes % (A) 20 %; MCH 31.2 pg (25.0-35.0); MCHC 33.2 g/dL (31.0-37.0); MCV 93.9 fL (80.0-100.0); Mean Platelet Volume 8.5; Monocytes # (A) 0.4 k/uL (0-1.0); Monocytes % (A) 5 %; Neutrophils # (A) 5.2 k/uL (1.3-7.7); Neutrophils % (A) 70 %; Platelet Count 259 k/uL (150-450); RDW 13.3 % (11.5-15.5); WBC 7.3 k/uL (3.8-10.6)
[2022-11-07 14:38] LABS: ALT 26 U/L (4-34); AST 31 U/L (14-36); African American GFR (CKD) >90 (>60 ml/min/1.73 sqM); Albumin 4.2 g/dL (3.5-5.0); Alkaline Phosphatase 148 U/L (38-126); Anion Gap 8 mmol/L; Blood Urea Nitrogen 7 mg/dL (7-17); Calcium 8.8 mg/dL (8.4-10.2); Carbon Dioxide 26 mmol/L (22-30); Chloride 104 mmol/L (98-107); Glucose 95 mg/dL (74-99); Non-African American GFR(CKD) 88 (>60 ml/min/1.73 sqM); Potassium 3.8 mmol/L (3.5-5.1); Sodium 138 mmol/L (137-145); Total Bilirubin 0.4 mg/dL (0.2-1.3); Total Protein 7.1 g/dL (6.3-8.2)
[2022-11-07 14:39] LABS: INR 0.9 (<1.2); Prothrombin Time 9.7 sec (9.0-12.0)
[2022-11-07 14:45] LABS: Partial Thromboplastin Time 22.4 sec (22.0-30.0)
[2022-11-07] MEDS ORDERED: SODIUM CHLORIDE 0.9% 1,000 ML IV ONE (15:03)
[2022-11-07] MEDS ORDERED: ONDANSETRON 4 MG/2 ML VIAL IVP PRN (15:17)
[2022-11-07] MEDS ORDERED: NALOXONE 0.4 MG/ML 1 ML VIAL IVP PRN (15:17)
[2022-11-07] MEDS ORDERED: ACETAMINOPHEN TAB 325 MG TAB PO PRN (15:17)
[2022-11-07] MEDS: NITROGLYCERIN SL TABS 0.4 MG TAB SUBLINGUAL PRN ×2 (15:47→15:54)
[2022-11-07 22:41] VITALS: RESP 16
[2022-11-08 09:13] LABS: Chol/HDL Ratio 3.04 Ratio; LDL Cholesterol,Calculated 105.6 mg/dL (0.0-131.0)
[2022-11-08] MEDS ORDERED: HYDROcodone/APAP 10-325MG 1 EACH TAB PO PRN (09:36)
[2022-11-08] MEDS ORDERED: NITROGLYCERIN SL TABS 0.4 MG TAB SUBLINGUAL PRN (09:36)
[2022-11-08] MEDS ORDERED: CYCLOBENZAPRINE 10 MG TAB PO PRN (09:36)
[2022-11-08] MEDS ORDERED: ALBUTEROL NEBULIZED 2.5 MG/3 ML INHALATION PRN (09:36)
[2022-11-08] MEDS ORDERED: HYOSCYAMINE SULFATE 0.125 MG TAB SL PRN (09:36)
[2022-11-08] MEDS ORDERED: ONDANSETRON ODT 4 MG TAB PO PRN (09:36)
--- NOTE | 2022-11-08 09:42 | P.CRDCN ---
History of Present Illness History of present illness: HISTORY OF PRESENT ILLNESS: This is a 52-year-old female with a past medical history significant for coronary artery disease with previous stenting to the mid LAD, seizure disorder, migraines, anxiety, bipolar disorder, PTSD, Guillain-[place] syndrome, and chronic left calf pain. Patient follows in the office with Dr. Corrales. We have been asked to see the patient in consultation for syncope. Patient examined at the bedside. Patient states yesterday that she was walking to her bed after using the bathroom and passed out. She denied feeling dizzy or lightheaded prior to this. She denied any chest pain or shortness of breath. She reports she has been having nausea and vomiting for the past few days. She denies any fever or chills. The patient does have an event monitor that was placed in the cardiology office a few days ago due to patient reporting recurrent episodes of syncope. She states that she was called by the event monitor [employer] yesterday and told that she had an event on her monitor and was told to come to the emergency room. * EKG reveals sinus mechanism with no signs of acute ischemia * Chest xray negative for acute process * Laboratory data: WBC 7.3. Hemoglobin 11.5. Platelet count 259. Sodium 138. Potassium 3.8. BUN 7. Creatinine 0.79. Magnesium 2.0. Troponin negative 3 * Current home cardiac medications include aspirin 81 mg at night, Lipitor 40 mg at night, Plavix 75 mg at night * Most recent echocardiogram obtained in August 2022 revealed ejection fraction 55- 60%, LVH, mild pulmonary hypertension, trace mitral regurgitation, trace to mild tricuspid regurgitation, and trace pulmonic regurgitation * Patient underwent tilt table testing in August 2022 which did not reveal evidence for neurocardiogenic syncope dysautonomia * Patient underwent Lexiscan stress test on 10/28/2002 which was negative for ischemia * Cardiac catheterization history: May 2022 with stenting of the mid LAD REVIEW OF SYSTEMS: At the time of my exam: CONSTITUTIONAL: Denies fever or chills. HEENT: Denies blurred vision, vision changes, or eye pain. Denies hemoptysis CARDIOVASCULAR: Denies chest pain. Denies orthopnea. Denies PND. Denies palpitations RESPIRATORY: Denies shortness of breath. GASTROINTESTINAL: Denies abdominal pain. Denies nausea or vomiting. HEMATOLOGIC: Denies bleeding disorders. GENITOURINARY: Denies any blood in urine. SKIN: Denies pruitis. Denies rash. PHYSICAL EXAM: VITAL SIGNS: Reviewed. GENERAL: Well-developed in no acute distress. HEENT: Head is normocephalic. Pupils are equal, round. Sclerae anicteric. Mucous membranes of the mouth are moist. Neck supple. No JVD or thyromegaly LUNGS: Respirations even and unlabored. Lungs essentially clear to auscultation bilaterally. HEART: Regular rate and rhythm. S1 and S2 heard. ABDOMEN: Soft. Nondistended. Nontender. EXTREMITIES: Normal range of motion. No clubbing or cyanosis. Peripheral pulses intact. No lower extremity edema NEUROLOGIC: Awake and alert. Oriented x 3. ASSESSMENT: Syncope Reported history of recurrent syncope Coronary artery disease with previous stenting of LAD, May 2022 Seizure disorder Migraines Anxiety Bipolar disorder PTSD Guillain-[place] syndrome, patient states she follows at [facility] with multiple neurologist PLAN: Resume home cardiac medications Will obtain telemetry tracings from event monitor from cardiology office Further recommendations pending review of event monitor Nurse practitioner note has been reviewed by physician. Signing provider agrees with the documented findings, assessment, and plan of care. Past Medical History Past Medical History: Hyperlipidemia, Hypertension, Seizure Disorder Additional Past Medical History / Comment(s): Migraines, viral meningitis x3 as a child, 1995, 2000, chronic back pain, nerve blocks 08/2016 and 12/2016. Last seizure 10/10/2020, "ABSENT SEIZURES. HX TACHYCARDIA, GBS/CIPD, PTSD. History of Any Multi-Drug Resistant Organisms: None Reported Past Surgical History: Appendectomy, Section, Cholecystectomy, Heart C atheterization With Stent, Hernia Repair, Hysterectomy, Orthopedic Surgery, Tonsillectomy, Tubal Ligation Additional Past Surgical History / Comment(s): Hiatal Hernia, umbilical hernia repair, left rotator cuff repair, bilateral knee scopes, pain clinic procedures- occipital nerve block. abd exploratory sx(endometreosis), 3 abd scopes 1981, 1989, 1991), lumbar puncture. EGD. nerve biopsy, salvalry gland biospy Past Anesthesia/Blood Transfusion Reactions: No Reported Reaction Additional Past Anesthesia/Blood Transfusion Reaction / Comment(s): Claustrophobic Date of Last Stent Placement:: 06/03/2022 Past Psychological History: Anxiety, Bipolar, Panic Disorder, PTSD Additional Psychological History / Comment(s): lives at home tracee Smoking Status: Former smoker Past Alcohol Use History: None Reported Additional Past Alcohol Use History / Comment(s): SMOKED [id number] Past Drug Use History: None Reported - Past Family History Mother Family Medical History: Cancer, Dementia, Diabetes Mellitus, GERD/Reflux, Hyperlipidemia, Hypertension, Thyroid Disorder Additional Family Medical History / Comment(s): CABG Father History Unknown: Yes Family Medical History: No Reported History Medications and Allergies Home Medications Medication Instructions Recorded Confirmed Type Omeprazole [PriLOSEC] 20 mg PO HS 12/15/20 11/07/22 History Thiamine [Vitamin B-1] 100 mg PO HS 01/04/21 11/07/22 History Atorvastatin [Lipitor] 40 mg PO HS 07/20/21 11/07/22 History DULoxetine HCL [Cymbalta] 60 mg PO HS 07/20/21 11/07/22 History Atogepant [Qulipta] 60 mg PO HS 06/03/22 11/07/22 History Cyclobenzaprine [Flexeril] 10 mg PO TID PRN 06/03/22 11/07/22 History HYDROcodone/APAP 10-325MG [Stuart 1 tab PO TID PRN 06/03/22 11/07/22 History 10-325] Ondansetron Odt [Zofran ODT] 4 mg PO Q8HR PRN #9 tab 06/26/22 11/07/22 Rx Albuterol Inhaler [Ventolin Hfa 2 puff INHALATION RT-QID PRN 08/29/22 11/07/22 History Inhaler] Aspirin 81 mg PO HS 08/29/22 11/07/22 History Clopidogrel [Plavix] 75 mg PO HS 08/29/22 11/07/22 History Famotidine [Pepcid] 20 mg PO HS 08/29/22 11/07/22 History Hyoscyamine Sulfate [Levsin-Sl] 0.125 mg SL Q4H PRN 08/29/22 11/07/22 History Vitamin B-12 (Unknown Dose) 1 tab PO HS 09/11/22 11/07/22 History Nitroglycerin Sl Tabs [Nitrostat] 0.4 mg SUBLINGUAL Q5M PRN #25 tab 10/28/22 11/07/22 Rx Lacosamide [Vimpat] 100 mg PO HS 11/07/22 11/07/22 History Naloxone HCl [Narcan] 4 mg NASAL ONCE PRN 11/07/22 11/07/22 History Allergies Allergy/AdvReac Type Severity Reaction Status Date / Time dihydroergotamine Allergy Unknown Unknown Verified 11/07/22 13:45 [From Migranal] buprenorphine Allergy Rash/Hives Verified 11/07/22 13:45 gabapentin [From Neurontin] Allergy Itching/Swe Verified 11/07/22 13:45 lling latex Allergy Anaphylaxis Verified 11/07/22 13:45 naproxen [From Naprosyn] Allergy Anaphylaxis Verified 11/07/22 13:45 Penicillins Allergy Anaphylaxis Verified 11/07/22 13:45 prednisone Allergy Swelling Verified 11/07/22 13:45 quetiapine fumarate Allergy Itching, Verified 11/07/22 13:45 [From Seroquel] leg cramps rofecoxib [From Vioxx] Allergy Itching, Verified 11/07/22 13:45 leg cramps terfenadine [From Seldane] Allergy Rash/Hives Verified 11/07/22 13:45 calcium carbonate [From DHEA] AdvReac Chest Pain Verified 11/07/22 13:45 calcium phosphate,dibasic AdvReac Chest Pain Verified 11/07/22 13:45 [From DHEA] clindamycin AdvReac muscle Verified 11/07/22 13:45 cramps clonidine AdvReac fast Verified 11/07/22 13:45 heartbeat, migraine dextromethorphan HBr AdvReac face/neck Verified 11/07/22 13:45 [From NyQuil] flushing diazepam [From Valium] AdvReac Nausea & Verified 11/07/22 13:45 Vomiting divalproex sodium AdvReac Nausea & Verified 11/07/22 13:45 [From Depakote] Vomiting doxylamine [From NyQuil] AdvReac face "beet Verified 11/07/22 13:45 red", elevated temp. ibuprofen [From Motrin] AdvReac abdominal Verified 11/07/22 13:45 & muscle cramps indomethacin [From Indocin] AdvReac Abdominal Verified 11/07/22 13:45 Pain,N/V ketorolac tromethamine AdvReac "built up Verified 11/07/22 13:45 [From Toradol] in system", had to be given something to reverse lorazepam [From Ativan] AdvReac Nausea & Verified 11/07/22 13:45 Vomiting memantine [From Namenda] AdvReac Itching Verified 11/07/22 13:45 metoclopramide HCl AdvReac muscle Verified 11/07/22 13:45 [From Reglan] cramps nortriptyline [From Pamelor] AdvReac Chest Pain Verified 11/07/22 13:45 prasterone (DHEA) [From DHEA] AdvReac Chest Pain Verified 11/07/22 13:45 prochlorperazine AdvReac leg Verified 11/07/22 13:45 [From Compazine] cramping propranolol AdvReac Chest Pain Verified 11/07/22 13:45 pseudoephedrine HCl AdvReac face "beet Verified 11/07/22 13:45 [From NyQuil] red", elevated temp. quetiapine [From Seroquel] AdvReac leg Verified 11/07/22 13:45 cramping sumatriptan [From Imitrex] AdvReac migrane Verified 11/07/22 13:45 sumatriptan succinate AdvReac migrane Verified 11/07/22 13:45 [From Imitrex] topiramate [From Topamax] AdvReac "built up Verified 11/07/22 13:45 in system", had to be given something to reverse tramadol AdvReac Nausea & Verified 11/07/22 13:45 Vomiting/LEG CRAMPS/HEART FLUTTERS trazodone AdvReac "built up Verified 11/07/22 13:45 in system", had to be given something to reverse zolpidem tartrate AdvReac "Became Verified 11/07/22 13:45 [From Ambien] violent with no memory" zonisamide [From Zonegran] AdvReac inability Verified 11/07/22 13:45 to eat artificial sweetener AdvReac SEVERE Uncoded 11/07/22 12:05 MIGRAINE HEADACHE prosyn AdvReac Itching Uncoded 11/07/22 12:05 Physical Exam Vitals: Vital Signs Temp Pulse Pulse Pulse Pulse Pulse Resp 11/08/22 07:00 98.3 F 96 16 11/08/22 02:00 97.9 F 89 16 11/08/22 01:45 89 105 H 118 H 92 16 11/07/22 22:39 98.1 F 103 H 16 11/07/22 19:36 96 11/07/22 16:24 106 H 18 11/07/22 15:58 114 H 18 11/07/22 15:52 122 H 18 11/07/22 15:36 105 H 118 H 92 11/07/22 15:20 98.2 F 93 16 11/07/22 12:02 98 F 114 H 18 BP BP BP BP Pulse Ox 11/08/22 07:00 160/103 94 L 11/08/22 02:00 149/79 94 L 11/08/22 01:45 11/07/22 22:39 161/86 95 11/07/22 19:36 138/102 11/07/22 16:24 118/80 98 11/07/22 15:58 95/84 11/07/22 15:52 117/84 11/07/22 15:36 136/89 136/102 135/77 11/07/22 15:20 132/72 97 11/07/22 12:02 128/85 100 Intake and Output 11/07/22 11/08/22 11/08/22 22:59 06:59 14:59 Other: Voiding Method Toilet # Voids 2 Weight 81.647 kg Results 11/07/22 14:10 11/07/22 14:10 Cardiac Enzymes 11/07/22 11/07/22 11/07/22 Range/Units 14:10 14:10 17:37 AST 31 (14-36) U/L Troponin I <0.012 <0.012 (0.000-0.034) ng/mL 11/07/22 Range/Units 20:00 AST (14-36) U/L Troponin I <0.012 (0.000-0.034) ng/mL Coagulation 11/07/22 Range/Units 14:10 PT 9.7 (9.0-12.0) sec APTT 22.4 (22.0-30.0) sec CBC 11/07/22 Range/Units 14:10 WBC 7.3 (3.8-10.6) k/uL RBC 3.70 L (3.80-5.40) m/uL Hgb 11.5 (11.4-16.0) gm/dL Hct 34.7 (34.0-46.0) % Plt Count 259 (150-450) k/uL Comprehensive Metabolic Panel 11/07/22 Range/Units 14:10 Sodium 138 (137-145) mmol/L Potassium 3.8 (3.5-5.1) mmol/L Chloride 104 (98-107) mmol/L Carbon Dioxide 26 (22-30) mmol/L BUN 7 (7-17) mg/dL Creatinine 0.79 (0.52-1.04) mg/dL Glucose 95 (74-99) mg/dL Calcium 8.8 (8.4-10.2) mg/dL AST 31 (14-36) U/L ALT 26 (4-34) U/L Alkaline Phosphatase 148 H (38-126) U/L Total Protein 7.1 (6.3-8.2) g/dL Albumin 4.2 (3.5-5.0) g/dL Current Medications Generic Name Dose Route Start Last Admin Trade Name Freq PRN Reason Stop Dose Admin Acetaminophen 650 mg 11/07/22 15:17 11/07/22 15:47 Acetaminophen Tab 325 Mg Tab PO 650 mg Q6HR PRN Administration Mild Pain or Fever > 100.5 Sodium Chloride 1,000 mls @ 50 mls/hr 11/07/22 15:03 11/07/22 15:15 Saline 0.9% IV 11/08/22 11:02 50 mls/hr .Q20H ONE Administration Naloxone HCl 0.2 mg 11/07/22 15:17 Naloxone 0.4 Mg/Ml 1 Ml Vial IVP Q2M PRN Opioid Reversal Nitroglycerin 0.4 mg 11/07/22 15:17 11/07/22 15:54 Nitroglycerin Sl Tabs 0.4 Mg Tab SUBLINGUAL 0.4 mg Q5M PRN Administration Chest Pain Ondansetron HCl 4 mg 11/07/22 15:17 11/07/22 15:48 Ondansetron 4 Mg/2 Ml Vial IVP 4 mg Q8HR PRN Administration Nausea And Vomiting Intake and Output 11/07/22 11/08/22 11/08/22 22:59 06:59 14:59 Other: Voiding Method Toilet # Voids 2 Weight 81.647 kg 11/07/22 14:10 11/07/22 14:10
[2022-11-08] MEDS ORDERED: LACOSAMIDE 50 MG TABLET PO SCH ×2 (10:17→21:00)
[2022-11-08] MEDS ORDERED: RX INFO: IV CONTRAST WAS GIVEN 1 EACH MISC MISCELLANE PRN (10:18)
--- NOTE | 2022-11-08 11:37 | US ---
EXAMINATION TYPE: US venous doppler duplex LE DATE OF EXAM: 11/08/2022 11:01 AM COMPARISON: NONE CLINICAL INDICATION: Female, 52 years old with history of leg swelling LLE, Rule out DVT; ;eft calf p ain SIDE PERFORMED: Bilateral TECHNIQUE: The lower extremity deep venous system is examined utilizing real time linear array sonog yinka with graded compression, doppler sonography and color-flow sonography. VESSELS IMAGED: Common Femoral Vein Deep Femoral Vein Greater Saphenous Vein * Femoral Vein Popliteal Vein Small Saphenous Vein * Proximal Calf Veins (* superficial vessels) Right Leg: Negative for DVT Left Leg: Negative for DVT *anterior and posterior fluid collections seen along area of concern in l eft calf, unknown etiology* IMPRESSION: 1. Grayscale, color doppler, spectral doppler imaging performed of the deep veins of the lower extrem ities. There is normal flow, compressibility, vascular waveforms. 2. Within the left lower extremity There are nonspecific fluid collection seen in the area of concern . Correlate clinically.
[2022-11-08 14:38] VITALS: BP 156/104; PULSE 92; TEMP 98.4
--- NOTE | 2022-11-08 15:43 | CT ---
EXAMINATION TYPE: CT angio chest DATE OF EXAM: 11/08/2022 COMPARISON: 08/29/2022 HISTORY: 52-year-old female Chest pain, rule out pulmonary embolism, high d-dimer TECHNIQUE: Contiguous axial scanning of the chest performed with IV Contrast, patient injected with 4 0ml mL of Isovue 370. Coronal/sagittal MIP reconstructions performed. CT DLP: 339.80 mGycm Automated exposure control for dose reduction was used. FINDINGS: Heart normal size without pericardial effusion. Prominent LAD coronary artery calcifications are pres ent. No flattening of the interventricular septum or reflux of contrast into the hepatic veins. Ectatic ascending aorta 3.7 cm. Mild atherosclerotic breast calcifications. Conventional arch vessel branching anatomy. Left anterior chest wall injection port with catheter tip at the cavoatrial junction. Satisfactory opacification of the pulmonary arterial system. No evidence for pulmonary embolus. Centrally located 5 mm right upper lobe pulmonary nodule, axial image 37 remains unchanged. Similar nodular subpleural atelectasis posterior left upper lobe. Mild diffuse bronchial wall thicken ing and mild strandy dependent atelectasis. No consolidation or pleural effusion. Suspect prior Asha fundoplication. Cholecystectomy clips in the upper abdomen. No osseous destructi ve process. IMPRESSION: 1. NO EVIDENCE FOR PULMONARY EMBOLUS. 2. CAD WITH PROMINENT LAD CORONARY ARTERY CALCIFICATIONS. 3. MILD DIFFUSE BRONCHIAL WALL THICKENING COULD REFLECT BRONCHITIS OR CHRONIC ASTHMA.
--- NOTE | 2022-11-08 16:15 | P.HPIM ---
History of Present Illness H&P Date: 11/08/22 Chief Complaint: Chest pain, central * 52-year-old female with a past medical history significant for coronary artery disease with previous stenting to the mid LAD, seizure disorder, migraines, anxiety, bipolar disorder, PTSD, Guillain-[place] syndrome, and chronic left calf pain. * Patient presented to the emergency department with complaints of chest pain and syncope patient states she was trying to get up from bed to use the bathroom and passed out. * Consultation was obtained from cardiology and patient was called by the [employer] to go to the emergency * EKG reveals sinus mechanism with no signs of acute ischemia * Chest xray negative for acute process * Workup initiated including multiple troponins and from negative * Outpatient cardiac history including * Most recent echocardiogram obtained in August 2022 revealed ejection fraction 55- 60%, LVH, mild pulmonary hypertension, trace mitral regurgitation, trace to mild tricuspid regurgitation, and trace pulmonic regurgitation * Patient underwent tilt table testing in August 2022 which did not reveal evidence for neurocardiogenic syncope dysautonomia * Patient underwent Lexiscan stress test on 10/28/2002 which was negative for ischemia * Cardiac catheterization history: May 2022 with stenting of the mid LAD REVIEW OF SYSTEMS: CONSTITUTIONAL: No fever, no malaise, no fatigue. HEENT: No recent visual problems or hearing problems. Denied any sore throat. CARDIOVASCULAR: No chest pain, orthopnea, PND, no palpitations, no syncope. PULMONARY: No shortness of breath, no cough, no hemoptysis. GASTROINTESTINAL: No diarrhea, no nausea, no vomiting, no abdominal pain. NEUROLOGICAL: No headaches, no weakness, no numbness. HEMATOLOGICAL: Denies any bleeding or petechiae. GENITOURINARY: Denies any burning micturition, frequency, or urgency. MUSCULOSKELETAL/RHEUMATOLOGICAL: Denies any joint pain, swelling, or any muscle pain. ENDOCRINE: Denies any polyuria or polydipsia. The rest of the 14-point review of systems is negative. PHYSICAL EXAMINATION: GENERAL: The patient is alert and oriented x3, not in any acute distress. Well developed, well nourished. HEENT: Pupils are round and equally reacting to light. EOMI. No scleral icterus. No conjunctival pallor. Normocephalic, atraumatic. No pharyngeal erythema. No thyromegaly. CARDIOVASCULAR: S1 and S2 present. No murmurs, rubs, or gallops. PULMONARY: Chest is clear to auscultation, no wheezing or crackles. ABDOMEN: Soft, nontender, nondistended, normoactive bowel sounds. No palpable o rganomegaly. MUSCULOSKELETAL: No joint swelling or deformity. EXTREMITIES: No cyanosis, clubbing, or pedal edema. NEUROLOGICAL: Gross neurological examination did not reveal any focal deficits. SKIN: No rashes. Past Medical History Past Medical History: Hyperlipidemia, Hypertension, Seizure Disorder Additional Past Medical History / Comment(s): Migraines, viral meningitis x3 as a child, 1995, 2000, chronic back pain, nerve blocks 08/2016 and 12/2016. Last seizure 10/10/2020, "ABSENT SEIZURES. HX TACHYCARDIA, GBS/CIPD, PTSD. History of Any Multi-Drug Resistant Organisms: None Reported Past Surgical History: Appendectomy, Section, Cholecystectomy, Heart C atheterization With Stent, Hernia Repair, Hysterectomy, Orthopedic Surgery, Tonsillectomy, Tubal Ligation Additional Past Surgical History / Comment(s): Hiatal Hernia, umbilical hernia repair, left rotator cuff repair, bilateral knee scopes, pain clinic procedures- occipital nerve block. abd exploratory sx(endometreosis), 3 abd scopes 1981, 1989, 1991), lumbar puncture. EGD. nerve biopsy, salvalry gland biospy Past Anesthesia/Blood Transfusion Reactions: No Reported Reaction Additional Past Anesthesia/Blood Transfusion Reaction / Comment(s): Claustrophobic Date of Last Stent Placement:: 06/03/2022 Past Psychological History: Anxiety, Bipolar, Panic Disorder, PTSD Additional Psychological History / Comment(s): lives at home witth Smoking Status: Former smoker Past Alcohol Use History: None Reported Additional Past Alcohol Use History / Comment(s): SMOKED [id number] Past Drug Use History: None Reported - Past Family History Mother Family Medical History: Cancer, Dementia, Diabetes Mellitus, GERD/Reflux, Hyperlipidemia, Hypertension, Thyroid Disorder Additional Family Medical History / Comment(s): CABG Father History Unknown: Yes Family Medical History: No Reported History Medications and Allergies Home Medications Medication Instructions Recorded Confirmed Type Omeprazole [PriLOSEC] 20 mg PO HS 12/15/20 11/07/22 History Thiamine [Vitamin B-1] 100 mg PO HS 01/04/21 11/07/22 History Atorvastatin [Lipitor] 40 mg PO HS 07/20/21 11/07/22 History DULoxetine HCL [Cymbalta] 60 mg PO HS 07/20/21 11/07/22 History Atogepant [Qulipta] 60 mg PO HS 06/03/22 11/07/22 History Cyclobenzaprine [Flexeril] 10 mg PO TID PRN 06/03/22 11/07/22 History HYDROcodone/APAP 10-325MG [[place] 1 tab PO TID PRN 06/03/22 11/07/22 History 10-325] Ondansetron Odt [Zofran ODT] 4 mg PO Q8HR PRN #9 tab 06/26/22 11/07/22 Rx Albuterol Inhaler [Ventolin Hfa 2 puff INHALATION RT-QID PRN 08/29/22 11/07/22 History Inhaler] Aspirin 81 mg PO HS 08/29/22 11/07/22 History Clopidogrel [Plavix] 75 mg PO HS 08/29/22 11/07/22 History Famotidine [Pepcid] 20 mg PO HS 08/29/22 11/07/22 History Hyoscyamine Sulfate [Levsin-Sl] 0.125 mg SL Q4H PRN 08/29/22 11/07/22 History Vitamin B-12 (Unknown Dose) 1 tab PO HS 09/11/22 11/07/22 History Nitroglycerin Sl Tabs [Nitrostat] 0.4 mg SUBLINGUAL Q5M PRN #25 tab 10/28/22 11/07/22 Rx Lacosamide [Vimpat] 100 mg PO HS 11/07/22 11/07/22 History Naloxone HCl [Narcan] 4 mg NASAL ONCE PRN 11/07/22 11/07/22 History Allergies Allergy/AdvReac Type Severity Reaction Status Date / Time dihydroergotamine Allergy Unknown Unknown Verified 11/07/22 13:45 [From Migranal] buprenorphine Allergy Rash/Hives Verified 11/07/22 13:45 gabapentin [From Neurontin] Allergy Itching/Swe Verified 11/07/22 13:45 lling latex Allergy Anaphylaxis Verified 11/07/22 13:45 naproxen [From Naprosyn] Allergy Anaphylaxis Verified 11/07/22 13:45 Penicillins Allergy Anaphylaxis Verified 11/07/22 13:45 prednisone Allergy Swelling Verified 11/07/22 13:45 quetiapine fumarate Allergy Itching, Verified 11/07/22 13:45 [From Seroquel] leg cramps rofecoxib [From Vioxx] Allergy Itching, Verified 11/07/22 13:45 leg cramps terfenadine [From Seldane] Allergy Rash/Hives Verified 11/07/22 13:45 calcium carbonate [From DHEA] AdvReac Chest Pain Verified 11/07/22 13:45 calcium phosphate,dibasic AdvReac Chest Pain Verified 11/07/22 13:45 [From DHEA] clindamycin AdvReac muscle Verified 11/07/22 13:45 cramps clonidine AdvReac fast Verified 11/07/22 13:45 heartbeat, migraine dextromethorphan HBr AdvReac face/neck Verified 11/07/22 13:45 [From NyQuil] flushing diazepam [From Valium] AdvReac Nausea & Verified 11/07/22 13:45 Vomiting divalproex sodium AdvReac Nausea & Verified 11/07/22 13:45 [From Depakote] Vomiting doxylamine [From NyQuil] AdvReac face "beet Verified 11/07/22 13:45 red", elevated temp. ibuprofen [From Motrin] AdvReac abdominal Verified 11/07/22 13:45 & muscle cramps indomethacin [From Indocin] AdvReac Abdominal Verified 11/07/22 13:45 Pain,N/V ketorolac tromethamine AdvReac "built up Verified 11/07/22 13:45 [From Toradol] in system", had to be given something to reverse lorazepam [From Ativan] AdvReac Nausea & Verified 11/07/22 13:45 Vomiting memantine [From Namenda] AdvReac Itching Verified 11/07/22 13:45 metoclopramide HCl AdvReac muscle Verified 11/07/22 13:45 [From Reglan] cramps nortriptyline [From Pamelor] AdvReac Chest Pain Verified 11/07/22 13:45 prasterone (DHEA) [From DHEA] AdvReac Chest Pain Verified 11/07/22 13:45 prochlorperazine AdvReac leg Verified 11/07/22 13:45 [From Compazine] cramping propranolol AdvReac Chest Pain Verified 11/07/22 13:45 pseudoephedrine HCl AdvReac face "beet Verified 11/07/22 13:45 [From NyQuil] red", elevated temp. quetiapine [From Seroquel] AdvReac leg Verified 11/07/22 13:45 cramping sumatriptan [From Imitrex] AdvReac migrane Verified 11/07/22 13:45 sumatriptan succinate AdvReac migrane Verified 11/07/22 13:45 [From Imitrex] topiramate [From Topamax] AdvReac "built up Verified 11/07/22 13:45 in system", had to be given something to reverse tramadol AdvReac Nausea & Verified 11/07/22 13:45 Vomiting/LEG CRAMPS/HEART FLUTTERS trazodone AdvReac "built up Verified 11/07/22 13:45 in system", had to be given something to reverse zolpidem tartrate AdvReac "Became Verified 11/07/22 13:45 [From Ambien] violent with no memory" zonisamide [From Zonegran] AdvReac inability Verified 11/07/22 13:45 to eat artificial sweetener AdvReac SEVERE Uncoded 11/07/22 12:05 MIGRAINE HEADACHE prosyn AdvReac Itching Uncoded 11/07/22 12:05 Physical Exam Vitals: Vital Signs Temp Pulse Pulse Pulse Pulse Pulse Resp 11/08/22 14:36 98.4 F 92 16 11/08/22 07:00 98.3 F 96 16 11/08/22 02:00 97.9 F 89 16 11/08/22 01:45 89 105 H 118 H 92 16 11/07/22 22:39 98.1 F 103 H 16 11/07/22 19:36 96 11/07/22 16:24 106 H 18 BP BP BP Pulse Ox 11/08/22 14:36 156/104 98 11/08/22 07:00 160/103 94 L 11/08/22 02:00 149/79 94 L 11/08/22 01:45 11/07/22 22:39 161/86 95 11/07/22 19:36 138/102 11/07/22 16:24 118/80 98 Intake and Output 11/08/22 11/08/22 11/08/22 06:59 14:59 22:59 Other: Voiding Method Toilet # Voids 2 1 # Bowel Movements 1 Weight 81.647 kg Results CBC & Chem 7: 11/07/22 14:10 11/07/22 14:10 Labs: Abnormal Lab Results - Last 24 Hours (Table) 11/07/22 Range/Units 14:10 HDL Cholesterol 63.80 H (40.00-60.00) mg/dL Thrombosis Risk Factor Assmnt - Choose All That Apply Any of the Below Risk Factors Present?: Yes Each Factor Represents 1 point: Age 41-60 years, Obesity (BMI >25) Other Risk Factors: No Other congenital or acquired thrombophilia - If yes, enter type in comment: No Thrombosis Risk Factor Assessment Total Risk Factor Score: 2 Thrombosis Risk Factor Assessment Level: Low Risk Assessment and Plan Assessment: Assessment and plan * Syncopal episode * Chest pain rule out ACS versus pulmonary embolism * Coronary artery disease with stent in LAD * History of seizure disorder * Bipolar disorder * History of GBS * Consultation obtained from cardiology, event monitor to be reviewed, see front troponins ordered * Home medications reviewed and reconciled * Continue current medical management including aspirin, Plavix * Outpatient d-dimer was high will get venous social lower extremity and CT chest to rule out pulmonary embolism * CODE STATUS is full code
--- NOTE | 2022-11-08 16:20 | P.DS ---
Providers Date of admission: 11/07/22 15:05 Attending physician: Stepan Clark MD Primary care physician: José [facility] Course: 52-year-old female with a past medical history significant for coronary artery disease with previous stenting to the mid LAD, seizure disorder, migraines, anxiety, bipolar disorder, PTSD, Guillain-[facility] syndrome, and chronic left calf pain. * Patient presented to the emergency department with complaints of chest pain and syncope patient states she was trying to get up from bed to use the bathroom and passed out. * Consultation was obtained from cardiology and patient was called by the [employer] to go to the emergency * EKG reveals sinus mechanism with no signs of acute ischemia * Chest xray negative for acute process * Workup initiated including multiple troponins and from negative * Outpatient cardiac history including * Most recent echocardiogram obtained in August 2022 revealed ejection fraction 55- 60%, LVH, mild pulmonary hypertension, trace mitral regurgitation, trace to m ild tricuspid regurgitation, and trace pulmonic regurgitation * Patient underwent tilt table testing in August 2022 which did not reveal evidence for neurocardiogenic syncope dysautonomia * Patient underwent Lexiscan stress test on 10/28/2002 which was negative for ischemia * Cardiac catheterization history: May 2022 with stenting of the mid LAD * Hospital course * Patient was admitted to [facility] for multiple troponins obtained which were negative, venous ultrasound lower extremity was done which was negative for DVT. CT chest was obtained which was negative for pulmonary embolism does show coronary calcification. Patient cleared by cardiology for discharge. Discharged home in stable condition all questions answered PHYSICAL EXAMINATION: GENERAL: The patient is alert and oriented x3, not in any acute distress. Well developed, well nourished. HEENT: Pupils are round and equally reacting to light. EOMI. No scleral icterus. No conjunctival pallor. Normocephalic, atraumatic. No pharyngeal erythema. No thyromegaly. CARDIOVASCULAR: S1 and S2 present. No murmurs, rubs, or gallops. PULMONARY: Chest is clear to auscultation, no wheezing or crackles. ABDOMEN: Soft, nontender, nondistended, normoactive bowel sounds. No palpable organomegaly. MUSCULOSKELETAL: No joint swelling or deformity. EXTREMITIES: No cyanosis, clubbing, or pedal edema. NEUROLOGICAL: Gross neurological examination did not reveal any focal deficits. SKIN: No rashes. Assessment and plan Syncopal episode Chest pain rule out ACS versus pulmonary embolism Coronary artery disease with stent in LAD History of seizure disorder Bipolar disorder History of GBS * Consultation obtained from cardiology, event monitor was reviewed, cleared for discharge by cardiology, troponin negative, * CT chest negative for pulmonary embolism * Continue current medical management including aspirin, Plavix * Outpatient follow-up with PCP Patient Condition at Discharge: Stable Plan - Discharge Summary New Discharge Prescriptions: Continue Thiamine [Vitamin B-1] 100 mg PO HS Atorvastatin [Lipitor] 40 mg PO HS HYDROcodone/APAP 10-325MG [[place] 10-325] 1 tab PO TID PRN PRN Reason: Pain Cyclobenzaprine [Flexeril] 10 mg PO TID PRN PRN Reason: Pain Atogepant [Qulipta] 60 mg PO HS Ondansetron Odt [Zofran ODT] 4 mg PO Q8HR PRN #9 tab PRN Reason: Nausea Albuterol Inhaler [Ventolin Hfa Inhaler] 2 puff INHALATION RT-QID PRN PRN Reason: Shortness Of Breath Hyoscyamine Sulfate [Levsin-Sl] 0.125 mg SL Q4H PRN PRN Reason: Gi Upset Clopidogrel [Plavix] 75 mg PO HS Aspirin 81 mg PO HS Lacosamide [Vimpat] 100 mg PO HS Omeprazole [PriLOSEC] 20 mg PO HS DULoxetine HCL [Cymbalta] 60 mg PO HS Famotidine [Pepcid] 20 mg PO HS Vitamin B-12 (Unknown Dose) 1 tab PO HS Nitroglycerin Sl Tabs [Nitrostat] 0.4 mg SUBLINGUAL Q5M PRN #25 tab PRN Reason: Chest Pain Naloxone HCl [Narcan] 4 mg NASAL ONCE PRN PRN Reason: overdose Discharge Medication List Omeprazole [PriLOSEC] 20 mg PO HS 12/15/20 [History] Thiamine [Vitamin B-1] 100 mg PO HS 01/04/21 [History] Atorvastatin [Lipitor] 40 mg PO HS 07/20/21 [History] DULoxetine HCL [Cymbalta] 60 mg PO HS 07/20/21 [History] Atogepant [Qulipta] 60 mg PO HS 06/03/22 [History] Cyclobenzaprine [Flexeril] 10 mg PO TID PRN 06/03/22 [History] HYDROcodone/APAP 10-325MG [[place] 10-325] 1 tab PO TID PRN 06/03/22 [History] Ondansetron Odt [Zofran ODT] 4 mg PO Q8HR PRN #9 tab 06/26/22 [Rx] Albuterol Inhaler [Ventolin Hfa Inhaler] 2 puff INHALATION RT-QID PRN 08/29/22 [History] Aspirin 81 mg PO HS 08/29/22 [History] Clopidogrel [Plavix] 75 mg PO HS 08/29/22 [History] Famotidine [Pepcid] 20 mg PO HS 08/29/22 [History] Hyoscyamine Sulfate [Levsin-Sl] 0.125 mg SL Q4H PRN 08/29/22 [History] Vitamin B-12 (Unknown Dose) 1 tab PO HS 09/11/22 [History] Nitroglycerin Sl Tabs [Nitrostat] 0.4 mg SUBLINGUAL Q5M PRN #25 tab 10/28/22 [Rx] Lacosamide [Vimpat] 100 mg PO HS 11/07/22 [History] Naloxone HCl [Narcan] 4 mg NASAL ONCE PRN 11/07/22 [History] Follow up Appointment(s)/Referral(s): José Reece MD [Primary Care Provider] - 1-2 days Discharge Disposition: HOME SELF-CARE
[2022-11-08] MEDS ORDERED: FAMOTIDINE 20 MG TAB PO SCH (21:00)
[2022-11-08] MEDS ORDERED: PANTOPRAZOLE 40 MG TABLET PO SCH (21:00)
[2022-11-08] MEDS ORDERED: ASPIRIN 81 MG PO SCH (21:00)
[2022-11-08] MEDS ORDERED: PATIENT'S OWN (Atogepant [Qulipta] 60 MG Tablet) PO SCH (21:00)
[2022-11-08] MEDS ORDERED: ATORVASTATIN 40 MG TAB PO SCH (21:00)
[2022-11-08] MEDS ORDERED: DULoxetine HCL 60 MG CAPSULE.DR PO SCH (21:00)
[2022-11-08] MEDS ORDERED: CYANOCOBALAMIN 500 MCG TAB PO SCH (21:00)
[2022-11-08] MEDS ORDERED: CLOPIDOGREL 75 MG TAB PO SCH (21:00)
[2022-11-08] MEDS ORDERED: THIAMINE 100 MG TAB PO SCH (21:00)
== END 2022-11-08 17:18 | disposition home or self-care (01) ==
LOC: EC 11:34 → 6NMEDSUR 15:05
PROVIDERS: ADMIT Internal Medicine; ATTEND Internal Medicine
DX: R55 Syncope and collapse (principal); E78.5 Hyperlipidemia, unspecified; I10 Essential (primary) hypertension; G43.909 Migraine, unspecified, not intractable, without status migrainosus; M54.9 Dorsalgia, unspecified; M79.662 Pain in left lower leg; G89.29 Other chronic pain; G40.909 Epilepsy, unspecified, not intractable, without status epilepticus; I25.10 Atherosclerotic heart disease of native coronary artery without angina pectoris; R00.0 Tachycardia, unspecified; F41.0 Panic disorder [episodic paroxysmal anxiety]; F31.9 Bipolar disorder, unspecified; G61.0 Guillain-Barre syndrome; Z87.891 Personal history of nicotine dependence; Z95.5 Presence of coronary angioplasty implant and graft; Z79.02 Long term (current) use of antithrombotics/antiplatelets; Z79.82 Long term (current) use of aspirin; Z79.899 Other long term (current) drug therapy; Z91.040 Latex allergy status; Z88.0 Allergy status to penicillin; Z88.1 Allergy status to other antibiotic agents; Z88.6 Allergy status to analgesic agent
CPT/HCPCS: 96361; 96374; 99285; 36415; 93005; 80061; 80053; 83735; 84484; 85025; 85610; 85730; 71046; 93970; 71275; G0378 ×2; J2405; Q9967

== ENCOUNTER 2022-11-18 11:55 | Observation (INO) | payer OTHER ==
[2022-11-18] MEDS ORDERED: ASPIRIN 81 MG PO STA (12:18)
[2022-11-18] MEDS ORDERED: NITROGLYCERIN SL TABS 0.4 MG TAB SUBLINGUAL STA ×2 (12:27→12:28)
[2022-11-18] MEDS ORDERED: SODIUM CHLORIDE 0.9% 1,000 ML IV STA (12:30)
--- NOTE | 2022-11-18 13:03 | ED ---
General Adult HPI - General Chief complaint: Chest Pain Stated complaint: chest pain Time Seen by Provider: 11/18/22 12:06 Source: patient, RN notes reviewed, old records reviewed Mode of arrival: ambulatory Limitations: no limitations - History of Present Illness Initial comments: Patient is a 52-year-old female well-known to the emergency department physician or chest pain. Patient has a history of LAD stent, hypertension, hyperlipidemia. States that chest pain began approximately 2 hours prior to arrival. Describes it as substernal with radiation up into her neck. She states this is her typical chest pain that she does experience. However was very sudden in onset. She endorses mild nausea but no diaphoresis. Pain was on started while at rest. She denies any shortness of breath. Denies any current nausea or vomiting. States she took 2 nitros at home as well as a baby aspirin with no relief in pain. Denies any lower extremity swelling. Denies any fevers, chills, cough. Presents for further evaluation at this time. - Related Data Home Medications Medication Instructions Recorded Confirmed Omeprazole [PriLOSEC] 20 mg PO HS 12/15/20 11/18/22 Thiamine [Vitamin B-1] 100 mg PO HS 01/04/21 11/18/22 Atorvastatin [Lipitor] 40 mg PO HS 07/20/21 11/18/22 DULoxetine HCL [Cymbalta] 60 mg PO HS 07/20/21 11/18/22 Atogepant [Qulipta] 60 mg PO HS 06/03/22 11/18/22 Cyclobenzaprine [Flexeril] 10 mg PO TID PRN 06/03/22 11/18/22 HYDROcodone/APAP 10-325MG [[place] 1 tab PO TID PRN 06/03/22 11/18/22 10-325] Albuterol Inhaler [Ventolin Hfa 2 puff INHALATION RT-QID PRN 08/29/22 11/18/22 Inhaler] Aspirin 81 mg PO HS 08/29/22 11/18/22 Clopidogrel [Plavix] 75 mg PO HS 08/29/22 11/18/22 Famotidine [Pepcid] 20 mg PO HS 08/29/22 11/18/22 Hyoscyamine Sulfate [Levsin-Sl] 0.125 mg SL Q4H PRN 08/29/22 11/18/22 Vitamin B-12 (Unknown Dose) 1 tab PO HS 09/11/22 11/18/22 Lacosamide [Vimpat] 100 mg PO HS 11/07/22 11/18/22 Naloxone HCl [Narcan] 4 mg NASAL ONCE PRN 11/07/22 11/18/22 Nitroglycerin Sl Tabs [Nitrostat] 0.4 mg SL Q5M PRN 11/18/22 11/18/22 Previous Rx's Medication Instructions Recorded Ondansetron Odt [Zofran ODT] 4 mg PO Q8HR PRN #9 tab 06/26/22 Allergies Allergy/AdvReac Type Severity Reaction Status Date / Time dihydroergotamine Allergy Unknown Unknown Verified 11/18/22 13:55 [From Migranal] buprenorphine Allergy Rash/Hives Verified 11/18/22 13:55 gabapentin [From Neurontin] Allergy Itching/Swe Verified 11/18/22 13:55 lling latex Allergy Anaphylaxis Verified 11/18/22 13:55 naproxen [From Naprosyn] Allergy Anaphylaxis Verified 11/18/22 13:55 Penicillins Allergy Anaphylaxis Verified 11/18/22 13:55 prednisone Allergy Swelling Verified 11/18/22 13:55 quetiapine fumarate Allergy Itching, Verified 11/18/22 13:55 [From Seroquel] leg cramps rofecoxib [From Vioxx] Allergy Itching, Verified 11/18/22 13:55 leg cramps terfenadine [From Seldane] Allergy Rash/Hives Verified 11/18/22 13:55 calcium carbonate [From DHEA] AdvReac Chest Pain Verified 11/18/22 13:55 calcium phosphate,dibasic AdvReac Chest Pain Verified 11/18/22 13:55 [From DHEA] clindamycin AdvReac muscle Verified 11/18/22 13:55 cramps clonidine AdvReac fast Verified 11/18/22 13:55 heartbeat, migraine dextromethorphan HBr AdvReac face/neck Verified 11/18/22 13:55 [From NyQuil] flushing diazepam [From Valium] AdvReac Nausea & Verified 11/18/22 13:55 Vomiting divalproex sodium AdvReac Nausea & Verified 11/18/22 13:55 [From Depakote] Vomiting doxylamine [From NyQuil] AdvReac face "beet Verified 11/18/22 13:55 red", elevated temp. ibuprofen [From Motrin] AdvReac abdominal Verified 11/18/22 13:55 & muscle cramps indomethacin [From Indocin] AdvReac Abdominal Verified 11/18/22 13:55 Pain,N/V ketorolac tromethamine AdvReac "built up Verified 11/18/22 13:55 [From Toradol] in system", had to be given something to reverse lorazepam [From Ativan] AdvReac Nausea & Verified 11/18/22 13:55 Vomiting memantine [From Namenda] AdvReac Itching Verified 11/18/22 13:55 metoclopramide HCl AdvReac muscle Verified 11/18/22 13:55 [From Reglan] cramps nortriptyline [From Pamelor] AdvReac Chest Pain Verified 11/18/22 13:55 prasterone (DHEA) [From DHEA] AdvReac Chest Pain Verified 11/18/22 13:55 prochlorperazine AdvReac leg Verified 11/18/22 13:55 [From Compazine] cramping propranolol AdvReac Chest Pain Verified 11/18/22 13:55 pseudoephedrine HCl AdvReac face "beet Verified 11/18/22 13:55 [From NyQuil] red", elevated temp. quetiapine [From Seroquel] AdvReac leg Verified 11/18/22 13:55 cramping sumatriptan [From Imitrex] AdvReac migrane Verified 11/18/22 13:55 sumatriptan succinate AdvReac migrane Verified 11/18/22 13:55 [From Imitrex] topiramate [From Topamax] AdvReac "built up Verified 11/18/22 13:55 in system", had to be given something to reverse tramadol AdvReac Nausea & Verified 11/18/22 13:55 Vomiting/LEG CRAMPS/HEART FLUTTERS trazodone AdvReac "built up Verified 11/18/22 13:55 in system", had to be given something to reverse zolpidem tartrate AdvReac "Became Verified 11/18/22 13:55 [From Ambien] violent with no memory" zonisamide [From Zonegran] AdvReac inability Verified 11/18/22 13:55 to eat artificial sweetener AdvReac SEVERE Uncoded 11/18/22 12:04 MIGRAINE HEADACHE prosyn AdvReac Itching Uncoded 11/18/22 12:04 Review of Systems ROS Statement: Those systems with pertinent positive or pertinent negative responses have been documented in the HPI. Review of Systems: CONST: Denies fever EYES: Denies blurry vision ENT: Denies nasal congestion C/V: Endorses chest pain RESP: Denies shortness of breath GI: Denies abdominal pain : Denies dysuria SKIN: Denies rash. MSK: Denies joint pain. NEURO: Denies headache ROS Other: All systems not noted in ROS Statement are negative. Past Medical History Past Medical History: Hyperlipidemia, Hypertension, Seizure Disorder Additional Past Medical History / Comment(s): Migraines, viral meningitis x3 as a child, 1995, 2000, chronic back pain, nerve blocks 08/2016 and 12/2016. Last seizure 10/10/2020, "ABSENT SEIZURES. HX TACHYCARDIA, GBS/CIPD, PTSD. History of Any Multi-Drug Resistant Organisms: None Reported Past Surgical History: Appendectomy, Section, Cholecystectomy, Heart Catheterization With Stent, Hernia Repair, Hysterectomy, Orthopedic Surgery, Tonsillectomy, Tubal Ligation Additional Past Surgical History / Comment(s): Hiatal Hernia, umbilical hernia repair, left rotator cuff repair, bilateral knee scopes, pain clinic procedures- occipital nerve block. abd exploratory sx(endometreosis), 3 abd scopes 1981, 1989, 1991), lumbar puncture. EGD. nerve biopsy, salvalry gland biospy Past Anesthesia/Blood Transfusion Reactions: No Reported Reaction Additional Past Anesthesia/Blood Transfusion Reaction / Comment(s): Claustrophobic Date of Last Stent Placement:: 06/03/2022 Past Psychological History: Anxiety, Bipolar, Panic Disorder, PTSD Smoking Status: Former smoker Past Alcohol Use History: None Reported Past Drug Use History: None Reported - Past Family History Mother Family Medical History: Cancer, Dementia, Diabetes Mellitus, GERD/Reflux, Hyperlipidemia, Hypertension, Thyroid Disorder Additional Family Medical History / Comment(s): CABG Father History Unknown: Yes Family Medical History: No Reported History General Exam - General Exam Comments Initial Comments: General: Appears in no acute distress. HEAD: Normal with no signs of head trauma. EYES: PERRLA, EOMI, conjunctiva normal, no discharge. ENT: Hearing grossly intact, normal oropharynx. RESPIRATORY: Clear breath sounds bilaterally. No wheezes, rales, or rhonchi. C/V: Regular rate and rhythm. S1 and S2 auscultated, no edema, peripheral pulses 2+ and intact throughout ABD: Abd is soft, nontender, nondistended EXT: Normal range of motion, no obvious deformity SKIN: No rashes or lesions observed on exposed skin. NEURO: Alert and oriented 4. No focal acute deficits. Limitations: no limitations Course Vital Signs 11/18/22 11/18/22 11/18/22 12:01 13:24 16:12 Temperature 98.1 F Pulse Rate 102 H 75 78 Respiratory 20 20 20 Rate Blood Pressure 162/96 140/95 168/105 O2 Sat by Pulse 100 98 96 Oximetry 11/18/22 20:03 Temperature 97.4 F L Pulse Rate 107 H Respiratory 18 Rate Blood Pressure 142/85 O2 Sat by Pulse 98 Oximetry Medical Decision Making - Medical Decision Making Was pt. sent in by a medical professional or institution (, PA, FRAUD PREVENTION ANALYST, urgent care, hospital, or intermediate...) When possible be specific @ -No Did you speak to anyone other than the patient for history (EMS, parent, family, police, friend...)? What history was obtained from this source @ -No Did you review nursing and triage notes (agree or disagree)? Why? @ -I reviewed and agree with nursing and triage notes Were old charts reviewed (outside hosp., previous admission, EMS record, old EKG, old radiological studies, urgent care reports/EKG's, intermediate records)? Report findings @ -Old charts reviewed from previous visits, including earlier this month. Differential Diagnosis (chest pain, altered mental status, abdominal pain women, abdominal pain men, vaginal bleeding, weakness, fever, dyspnea, syncope, headache, dizziness, GI bleed, back pain, seizure, CVA, palpatations, mental health, musculoskeletal)? @ -Differential Chest Pain: Stable Angina, Unstable Angina, STEMI, NSTEMI Aortic Dissection, Pneumothorax, Musculoskeletal, Esophageal Spasm GERD, Cholecystitis, Pancreatitis, Zoster, this is not meant to be an all-inclusive list. EKG interpreted by me (3pts min.). @ -As above X-rays interpreted by me (1pt min.). @ -Chest x-ray shows no obvious acute cardiopulmonary process. CT interpreted by me (1pt min.). @ -None done U/S interpreted by me (1pt. min.). @ -None done What testing was considered but not performed or refused? (CT, X-rays, U/S, labs)? Why? @ -None What meds were considered but not given or refused? Why? @ -None Did you discuss the management of the patient with other professionals (professionals i.e. , PA, FRAUD PREVENTION ANALYST, lab, RT, psych nurse, medical social worker, straight tooth gear generator operator, teacher, chief medical officer, watch case polisher)? Give summary @ -Discussed with the admitting team [facility] Dr. Lyons who accepted the patient. Was smoking cessation discussed for >3mins.? @ -No Was critical care preformed (if so, how long)? @ -No Were there social determinants of health that impacted care today? How? (Homelessness, low income, unemployed, alcoholism, drug addiction, transporta tion, low edu. Level, literacy, decrease access to med. care, skilled nursing, rehab)? @ -No Was there de-escalation of care discussed even if they declined (Discuss DNR or withdrawal of care, Hospice)? DNR status @ -No What co-morbidities impacted this encounter? (DM, HTN, Smoking, COPD, CAD, Cancer, CVA, ARF, Chemo, Hep., AIDS, mental health diagnosis, sleep apnea, morbid obesity)? @ -CAD, hyperlipidemia, hypertension Was patient admitted / discharged? Hospital course, mention meds given and route, prescriptions, significant lab abnormalities, going to OR and other pertinent info. @ -Based on the patient's presentation and physical exam, she presents complaining of chest pain which is somewhat acute on chronic for the patient. Does have a history of this time. She attempted home nitro without much improvement. She took a baby aspirin at home as well. Vital signs within acceptable limits. Patient be given additional aspirin as well as attempt nitro again. We will obtain cardiac workup. She was in agreement with this plan. EKG shows no signs of ischemia.Chest x-ray shows no acute cardio pulmonary process. Patient's labs are remarkable for an undetectable troponin. Remainder of labs within normal limits. On reevaluation, the nitroglycerin tablets did nothing for pain however it did respond to morphine. She is resting comfortably. Patient's heart score is moderate at 4. Therefore we will admit the patient. She was in agreement this plan. There was a long delay in obtaining the initial laboratory studies due to patient being a hard poke. Repeat EKG was obtained in that timeframe which showed no acute changes. Cardiology was consulted. Troponin will be trended. I spoke with the admitting team, Dr. Lyons of [facility] accepted the patient. Undiagnosed new problem with uncertain prognosis? @ -No Drug Therapy requiring intensive monitoring for toxicity (Heparin, Nitro, Insulin, Cardizem)? @ -No Were any procedures done? @ -No Diagnosis/symptom? @ -Chest pain Acute, or Chronic, or Acute on Chronic? @ -Acute on chronic Uncomplicated (without systemic symptoms) or Complicated (systemic symptoms)? @ -Complicated Side effects of treatment? @ -none Exacerbation, Progression, or Severe Exacerbation] @ -no Poses a threat to life or bodily function? @ -Yes - Lab Data Result diagrams: 11/18/22 14:26 11/18/22 14:26 Lab Results 11/18/22 11/18/22 11/18/22 Range/Units 14:26 14:26 14:26 WBC 6.5 (3.8-10.6) k/uL RBC 3.80 (3.80-5.40) m/uL Hgb 11.6 (11.4-16.0) gm/dL Hct 34.6 (34.0-46.0) % MCV 91.1 (80.0-100.0) fL MCH 30.5 (25.0-35.0) pg MCHC 33.5 (31.0-37.0) g/dL RDW 14.0 (11.5-15.5) % Plt Count 237 (150-450) k/uL MPV 8.4 Neutrophils % 68 % Lymphocytes % 23 % Monocytes % 6 % Eosinophils % 1 % Basophils % 0 % Neutrophils # 4.4 (1.3-7.7) k/uL Lymphocytes # 1.5 (1.0-4.8) k/uL Monocytes # 0.4 (0-1.0) k/uL Eosinophils # 0.1 (0-0.7) k/uL Basophils # 0.0 (0-0.2) k/uL PT 9.7 (9.0-12.0) sec INR 0.9 (<1.2) APTT 22.4 (22.0-30.0) sec Sodium 139 (137-145) mmol/L Potassium 3.9 (3.5-5.1) mmol/L Chloride 105 (98-107) mmol/L Carbon Dioxide 27 (22-30) mmol/L Anion Gap 7 mmol/L BUN 7 (7-17) mg/dL Creatinine 0.72 (0.52-1.04) mg/dL Est GFR (CKD-EPI)AfAm >90 (>60 ml/min/1.73 sqM) Est GFR (CKD-EPI)NonAf >90 (>60 ml/min/1.73 sqM) Glucose 89 (74-99) mg/dL Calcium 8.9 (8.4-10.2) mg/dL Magnesium 2.1 (1.6-2.3) mg/dL Total Bilirubin 0.3 (0.2-1.3) mg/dL AST 24 (14-36) U/L ALT 18 (4-34) U/L Alkaline Phosphatase 110 (38-126) U/L Troponin I (0.000-0.034) ng/mL Total Protein 6.4 (6.3-8.2) g/dL Albumin 3.7 (3.5-5.0) g/dL Lipase 42 (23-300) U/L 11/18/22 Range/Units 14:26 WBC (3.8-10.6) k/uL RBC (3.80-5.40) m/uL Hgb (11.4-16.0) gm/dL Hct (34.0-46.0) % MCV (80.0-100.0) fL MCH (25.0-35.0) pg MCHC (31.0-37.0) g/dL RDW (11.5-15.5) % Plt Count (150-450) k/uL MPV Neutrophils % % Lymphocytes % % Monocytes % % Eosinophils % % Basophils % % Neutrophils # (1.3-7.7) k/uL Lymphocytes # (1.0-4.8) k/uL Monocytes # (0-1.0) k/uL Eosinophils # (0-0.7) k/uL Basophils # (0-0.2) k/uL PT (9.0-12.0) sec INR (<1.2) APTT (22.0-30.0) sec Sodium (137-145) mmol/L Potassium (3.5-5.1) mmol/L Chloride (98-107) mmol/L Carbon Dioxide (22-30) mmol/L Anion Gap mmol/L BUN (7-17) mg/dL Creatinine (0.52-1.04) mg/dL Est GFR (CKD-EPI)AfAm (>60 ml/min/1.73 sqM) Est GFR (CKD-EPI)NonAf (>60 ml/min/1.73 sqM) Glucose (74-99) mg/dL Calcium (8.4-10.2) mg/dL Magnesium (1.6-2.3) mg/dL Total Bilirubin (0.2-1.3) mg/dL AST (14-36) U/L ALT (4-34) U/L Alkaline Phosphatase (38-126) U/L Troponin I <0.012 (0.000-0.034) ng/mL Total Protein (6.3-8.2) g/dL Albumin (3.5-5.0) g/dL Lipase (23-300) U/L - EKG Data -: EKG Interpreted by Me EKG Comments: 12-lead Electrocardiogram Interpretation Note EKG was reviewed and interpreted by myself. 12-lead ECG performed at 1209 is interpreted by me as revealing normal sinus rhythm at a rate of 82 beats per m inute. [place] is normal. VA interval is 146 ms, QRS duration 74 ms, QTc is 411 ms.. There were no ST or T wave abnormalities to suggest myocardial ischemia or injury. R wave progression across the precordium was satisfactory. By my interpretation this EKG is non-diagnostic for acute ischemia. 12-lead Electrocardiogram Interpretation Note EKG was reviewed and interpreted by myself. 12-lead ECG performed at 1420 is interpreted by me as revealing normal sinus rhythm at a rate of 79 beats per minute. [place] is normal. VA intervals 157 ms, QRS duration 74 ms, QTc is 413 m s.. There were no ST or T wave abnormalities to suggest myocardial ischemia or injury. R wave progression across the precordium was satisfactory. By my interpretation this EKG is non-diagnostic for acute ischemia. No change when compared with EKG from earlier today. Disposition Clinical Impression: Chest pain Disposition: ADMITTED IP TO THIS HOSP Condition: Stable Time of Disposition: 15:12
[2022-11-18] MEDS ORDERED: MORPHINE SULFATE 4 MG/ML SYRINGE IVP STA (13:31)
--- NOTE | 2022-11-18 13:42 | XR ---
EXAMINATION TYPE: XR chest 2V DATE OF EXAM: 11/18/2022 COMPARISON: 11/07/2022. HISTORY: Chest pain and shortness of breath. TECHNIQUE: Frontal and lateral views of the chest are obtained. FINDINGS: Left-sided Mediport is unchanged. There is no focal air space opacity, pleural effusion, o r pneumothorax seen. The cardiac silhouette size is within normal limits. The osseous structures a re intact. IMPRESSION: No acute cardiopulmonary process.
[2022-11-18 14:33] LABS: Basophils % (A) 0 %; Eosinophils # (A) 0.1 k/uL (0-0.7); Eosinophils % (A) 1 %; HCT 34.6 % (34.0-46.0); HGB 11.6 gm/dL (11.4-16.0); Lymphocytes # (A) 1.5 k/uL (1.0-4.8); Lymphocytes % (A) 23 %; MCH 30.5 pg (25.0-35.0); MCHC 33.5 g/dL (31.0-37.0); MCV 91.1 fL (80.0-100.0); Mean Platelet Volume 8.4; Monocytes # (A) 0.4 k/uL (0-1.0); Monocytes % (A) 6 %; Neutrophils # (A) 4.4 k/uL (1.3-7.7); Neutrophils % (A) 68 %; Platelet Count 237 k/uL (150-450); WBC 6.5 k/uL (3.8-10.6)
[2022-11-18 14:44] LABS: INR 0.9 (<1.2); Partial Thromboplastin Time 22.4 sec (22.0-30.0); Prothrombin Time 9.7 sec (9.0-12.0)
[2022-11-18 14:47] LABS: ALT 18 U/L (4-34); AST 24 U/L (14-36); African American GFR (CKD) >90 (>60 ml/min/1.73 sqM); Albumin 3.7 g/dL (3.5-5.0); Alkaline Phosphatase 110 U/L (38-126); Anion Gap 7 mmol/L; Blood Urea Nitrogen 7 mg/dL (7-17); Calcium 8.9 mg/dL (8.4-10.2); Carbon Dioxide 27 mmol/L (22-30); Chloride 105 mmol/L (98-107); Glucose 89 mg/dL (74-99); Lipase 42 U/L (23-300); Magnesium 2.1 mg/dL (1.6-2.3); Non-African American GFR(CKD) >90 (>60 ml/min/1.73 sqM); Potassium 3.9 mmol/L (3.5-5.1); Sodium 139 mmol/L (137-145); Total Bilirubin 0.3 mg/dL (0.2-1.3); Total Protein 6.4 g/dL (6.3-8.2)
[2022-11-18] MEDS ORDERED: NALOXONE 0.4 MG/ML 1 ML VIAL IV PRN (15:28)
[2022-11-18] MEDS ORDERED: ONDANSETRON 4 MG/2 ML VIAL IVP STA (15:52)
[2022-11-18] MEDS ORDERED: ALBUTEROL NEBULIZED 2.5 MG/3 ML INHALATION PRN (16:23)
[2022-11-18] MEDS ORDERED: ONDANSETRON ODT 4 MG TAB PO PRN (16:23)
[2022-11-18] MEDS ORDERED: NON FORMULARY DRUG (Naloxone Hcl [Narcan] 4 MG Each) NASAL PRN (16:23)
[2022-11-18] MEDS ORDERED: HYOSCYAMINE SULFATE 0.125 MG TAB SL PRN (16:23)
[2022-11-18] MEDS ORDERED: CYCLOBENZAPRINE 10 MG TAB PO PRN (16:23)
[2022-11-18] MEDS: MORPHINE SULFATE 4 MG/ML SYRINGE IV PRN (20:00)
[2022-11-18] MEDS ORDERED: ASPIRIN 81 MG PO SCH (21:00)
[2022-11-18] MEDS ORDERED: CYANOCOBALAMIN 500 MCG TAB PO SCH (21:00)
[2022-11-18] MEDS ORDERED: CLOPIDOGREL 75 MG TAB PO SCH (21:00)
[2022-11-18] MEDS ORDERED: PANTOPRAZOLE 40 MG TABLET PO SCH (21:00)
[2022-11-18] MEDS ORDERED: Atogepant [Qulipta] 60 MG Tablet PO SCH (21:00)
[2022-11-18] MEDS ORDERED: ATORVASTATIN 40 MG TAB PO SCH (21:00)
[2022-11-18] MEDS ORDERED: FAMOTIDINE 20 MG TAB PO SCH (21:00)
[2022-11-18] MEDS ORDERED: THIAMINE 100 MG TAB PO SCH (21:00)
[2022-11-18] MEDS ORDERED: DULoxetine HCL 60 MG CAPSULE.DR PO SCH (21:00)
[2022-11-18] MEDS ORDERED: LACOSAMIDE 50 MG TABLET PO SCH (21:00)
[2022-11-18] MEDS: HYDROcodone/APAP 10-325MG 1 EACH TAB PO PRN (21:57)
[2022-11-19] MEDS: MORPHINE SULFATE 4 MG/ML SYRINGE IV PRN ×3 (01:36→12:08)
[2022-11-19] MEDS ORDERED: hydrALAZINE HCL 20 MG/ML 1 ML VIAL IVP STA (03:33)
[2022-11-19 04:59] VITALS: RESP 18
[2022-11-19] MEDS: HYDROcodone/APAP 10-325MG 1 EACH TAB PO PRN (06:11)
[2022-11-19 07:36] VITALS: PULSE 97
[2022-11-19 09:15] LABS: Basophils # (A) 0.04 X 10*3/uL (0.00-0.10); Basophils % (A) 0.6 %; Eosinophils # (A) 0.13 X 10*3/uL (0.04-0.35); HCT 34.3 % (37.2-46.3); HGB 10.7 d/dL (12.0-15.0); Lymphocytes # (A) 1.55 X 10*3/uL (0.90-5.00); Lymphocytes % (A) 23.4 %; MCH 29.1 pg (27.0-32.0); MCHC 31.2 d/dL (32.0-37.0); MCV 93.2 FL (80.0-97.0); Mean Platelet Volume 11.5 FL (9.5-12.2); Monocytes # (A) 0.57 X 10*3/uL (0.20-1.00); Monocytes % (A) 8.6 %; NRBC Per 100 WBC 0 X 10*3/uL (0.00-0.01); Neutrophils # (A) 4.31 X 10*3/uL (1.80-7.70); Neutrophils % (A) 65.2 %; Platelet Count 261 X 10*3/uL (140-440); RBC 3.68 X 10*6/uL (4.10-5.20); RDW 14.2 % (11.5-14.5); WBC 6.61 X 10*3/uL (4.50-10.00)
--- NOTE | 2022-11-19 10:05 | P.CRDCN ---
History of Present Illness History of present illness: HISTORY OF PRESENT ILLNESS: This is a 52-year-old female with a past medical history significant for coronary artery disease with previous stenting to the mid LAD, seizure disorder, migraines, anxiety, bipolar disorder, PTSD, Guillain-[place] syndrome, and chronic left calf pain. Patient follows in the office with Dr. Corrales. We have been asked to see the patient in consultation for chest pain. Patient examined at the bedside. Patient states history she was talking to her mother when she began to have chest pain. She states the pain was on the right side of her chest and then went up into the right side of her neck. She points to an area below her ear. She states that she took nitro which did not help the pain. She also reports she has taken morphine and [place] without relief. * EKG reveals sinus mechanism with no signs of acute ischemia. * Chest xray negative for acute process * Laboratory data: WBC 6.61. Hemoglobin 10.8. Platelet count 261. Sodium 139. Potassium 3.9. BUN 7. Creatinine 0.72. Troponin negative 3. * Current home cardiac medications include aspirin 81 mg at night, Lipitor 40 mg at night, Plavix 75 mg at night * Most recent echocardiogram obtained in August 2022 revealed ejection fraction 55- 60%, LVH, mild pulmonary hypertension, trace mitral regurgitation, trace to mild tricuspid regurgitation, and trace pulmonic regurgitation * Patient underwent tilt table testing in August 2022 which did not reveal evidence for neurocardiogenic syncope dysautonomia * Patient underwent Lexiscan stress test on 10/28/2022 which was negative for ischemia * Cardiac catheterization history: May 2022 with stenting of the mid LAD REVIEW OF SYSTEMS: At the time of my exam: CONSTITUTIONAL: Denies fever or chills. HEENT: Denies blurred vision, vision changes, or eye pain. Denies hemoptysis CARDIOVASCULAR: Denies chest pain. Denies orthopnea. Denies PND. Denies palpitations RESPIRATORY: Denies shortness of breath. GASTROINTESTINAL: Denies abdominal pain. Denies nausea or vomiting. HEMATOLOGIC: Denies bleeding disorders. GENITOURINARY: Denies any blood in urine. SKIN: Denies pruitis. Denies rash. PHYSICAL EXAM: VITAL SIGNS: Reviewed. GENERAL: Well-developed in no acute distress. HEENT: Head is normocephalic. Pupils are equal, round. Sclerae anicteric. Mucous membranes of the mouth are moist. Neck supple. No JVD or thyromegaly LUNGS: Respirations even and unlabored. Lungs essentially clear to auscultation bilaterally. HEART: Regular rate and rhythm. S1 and S2 heard. ABDOMEN: Soft. Nondistended. Nontender. EXTREMITIES: Normal range of motion. No clubbing or cyanosis. Peripheral pulses intact. No lower extremity edema NEUROLOGIC: Awake and alert. Oriented x 3. ASSESSMENT: Chest pain, troponin negative x 3 Coronary artery disease with previous stenting of LAD, May 2022 Seizure disorder Migraines Anxiety Bipolar disorder PTSD Guillain-[place] syndrome, patient states she follows at [facility] with multiple neurologist Reported history of recurrent syncope PLAN: An acute coronary event has been ruled out Resume home cardiac medications Patient recently had Lexiscan stress test on 10/28/2022 which was negative for ischemia No further inpatient workup from a cardiac standpoint Patient is to follow up post discharge with Dr. Corrales Nurse practitioner note has been reviewed by physician. Signing provider agrees with the documented findings, assessment, and plan of care. Past Medical History Past Medical History: Hyperlipidemia, Hypertension, Seizure Disorder Additional Past Medical History / Comment(s): Migraines, viral meningitis x3 as a child, 1995, 2000, chronic back pain, nerve blocks 08/2016 and 12/2016. Last seizure 10/10/2020, "ABSENT SEIZURES. HX TACHYCARDIA, GBS/CIPD, PTSD. History of Any Multi-Drug Resistant Organisms: None Reported Past Surgical History: Appendectomy, Section, Cholecystectomy, Heart Catheterization With Stent, Hernia Repair, Hysterectomy, Orthopedic Surgery, Tonsillectomy, Tubal Ligation Additional Past Surgical History / Comment(s): Hiatal Hernia, umbilical hernia repair, left rotator cuff repair, bilateral knee scopes, pain clinic procedures- occipital nerve block. abd exploratory sx(endometreosis), 3 abd scopes 1981, 1989, 1991), lumbar puncture. EGD. nerve biopsy, salvalry gland biospy Past Anesthesia/Blood Transfusion Reactions: No Reported Reaction Additional Past Anesthesia/Blood Transfusion Reaction / Comment(s): Claustrophobic Date of Last Stent Placement:: 06/03/2022 Past Psychological History: Anxiety, Bipolar, Panic Disorder, PTSD Smoking Status: Former smoker Past Alcohol Use History: None Reported Past Drug Use History: None Reported - Past Family History Mother Family Medical History: Cancer, Dementia, Diabetes Mellitus, GERD/Reflux, H yperlipidemia, Hypertension, Thyroid Disorder Additional Family Medical History / Comment(s): CABG Father History Unknown: Yes Family Medical History: No Reported History Medications and Allergies Home Medications Medication Instructions Recorded Confirmed Type Omeprazole [PriLOSEC] 20 mg PO HS 12/15/20 11/18/22 History Thiamine [Vitamin B-1] 100 mg PO HS 01/04/21 11/18/22 History Atorvastatin [Lipitor] 40 mg PO HS 07/20/21 11/18/22 History DULoxetine HCL [Cymbalta] 60 mg PO HS 07/20/21 11/18/22 History Atogepant [Qulipta] 60 mg PO HS 06/03/22 11/18/22 History Cyclobenzaprine [Flexeril] 10 mg PO TID PRN 06/03/22 11/18/22 History HYDROcodone/APAP 10-325MG [[place] 1 tab PO TID PRN 06/03/22 11/18/22 History 10-325] Ondansetron Odt [Zofran ODT] 4 mg PO Q8HR PRN #9 tab 06/26/22 11/18/22 Rx Albuterol Inhaler [Ventolin Hfa 2 puff INHALATION RT-QID PRN 08/29/22 11/18/22 History Inhaler] Aspirin 81 mg PO HS 08/29/22 11/18/22 History Clopidogrel [Plavix] 75 mg PO HS 08/29/22 11/18/22 History Famotidine [Pepcid] 20 mg PO HS 08/29/22 11/18/22 History Hyoscyamine Sulfate [Levsin-Sl] 0.125 mg SL Q4H PRN 08/29/22 11/18/22 History Vitamin B-12 (Unknown Dose) 1 tab PO HS 09/11/22 11/18/22 History Lacosamide [Vimpat] 100 mg PO HS 11/07/22 11/18/22 History Naloxone HCl [Narcan] 4 mg NASAL ONCE PRN 11/07/22 11/18/22 History Nitroglycerin Sl Tabs [Nitrostat] 0.4 mg SL Q5M PRN 11/18/22 11/18/22 History Allergies Allergy/AdvReac Type Severity Reaction Status Date / Time dihydroergotamine Allergy Unknown Unknown Verified 11/18/22 13:55 [From Migranal] buprenorphine Allergy Rash/Hives Verified 11/18/22 13:55 gabapentin [From Neurontin] Allergy Itching/Swe Verified 11/18/22 13:55 lling latex Allergy Anaphylaxis Verified 11/18/22 13:55 naproxen [From Naprosyn] Allergy Anaphylaxis Verified 11/18/22 13:55 Penicillins Allergy Anaphylaxis Verified 11/18/22 13:55 prednisone Allergy Swelling Verified 11/18/22 13:55 quetiapine fumarate Allergy Itching, Verified 11/18/22 13:55 [From Seroquel] leg cramps rofecoxib [From Vioxx] Allergy Itching, Verified 11/18/22 13:55 leg cramps terfenadine [From Seldane] Allergy Rash/Hives Verified 11/18/22 13:55 calcium carbonate [From DHEA] AdvReac Chest Pain Verified 11/18/22 13:55 calcium phosphate,dibasic AdvReac Chest Pain Verified 11/18/22 13:55 [From DHEA] clindamycin AdvReac muscle Verified 11/18/22 13:55 cramps clonidine AdvReac fast Verified 11/18/22 13:55 heartbeat, migraine dextromethorphan HBr AdvReac face/neck Verified 11/18/22 13:55 [From NyQuil] flushing diazepam [From Valium] AdvReac Nausea & Verified 11/18/22 13:55 Vomiting divalproex sodium AdvReac Nausea & Verified 11/18/22 13:55 [From Depakote] Vomiting doxylamine [From NyQuil] AdvReac face "beet Verified 11/18/22 13:55 red", elevated temp. ibuprofen [From Motrin] AdvReac abdominal Verified 11/18/22 13:55 & muscle cramps indomethacin [From Indocin] AdvReac Abdominal Verified 11/18/22 13:55 Pain,N/V ketorolac tromethamine AdvReac "built up Verified 11/18/22 13:55 [From Toradol] in system", had to be given something to reverse lorazepam [From Ativan] AdvReac Nausea & Verified 11/18/22 13:55 Vomiting memantine [From Namenda] AdvReac Itching Verified 11/18/22 13:55 metoclopramide HCl AdvReac muscle Verified 11/18/22 13:55 [From Reglan] cramps nortriptyline [From Pamelor] AdvReac Chest Pain Verified 11/18/22 13:55 prasterone (DHEA) [From DHEA] AdvReac Chest Pain Verified 11/18/22 13:55 prochlorperazine AdvReac leg Verified 11/18/22 13:55 [From Compazine] cramping propranolol AdvReac Chest Pain Verified 11/18/22 13:55 pseudoephedrine HCl AdvReac face "beet Verified 11/18/22 13:55 [From NyQuil] red", elevated temp. quetiapine [From Seroquel] AdvReac leg Verified 11/18/22 13:55 cramping sumatriptan [From Imitrex] AdvReac migrane Verified 11/18/22 13:55 sumatriptan succinate AdvReac migrane Verified 11/18/22 13:55 [From Imitrex] topiramate [From Topamax] AdvReac "built up Verified 11/18/22 13:55 in system", had to be given something to reverse tramadol AdvReac Nausea & Verified 11/18/22 13:55 Vomiting/LEG CRAMPS/HEART FLUTTERS trazodone AdvReac "built up Verified 11/18/22 13:55 in system", had to be given something to reverse zolpidem tartrate AdvReac "Became Verified 11/18/22 13:55 [From Ambien] violent with no memory" zonisamide [From Zonegran] AdvReac inability Verified 11/18/22 13:55 to eat artificial sweetener AdvReac SEVERE Uncoded 11/18/22 12:04 MIGRAINE HEADACHE prosyn AdvReac Itching Uncoded 11/18/22 12:04 Physical Exam Vitals: Vital Signs Temp Pulse Pulse Resp BP BP Pulse Ox 11/19/22 07:25 98.3 F 97 18 137/89 97 11/19/22 02:40 98.1 F 93 18 147/110 96 11/19/22 02:23 80 16 11/18/22 21:51 98.1 F 80 16 159/104 96 11/18/22 21:01 100 18 151/93 97 11/18/22 20:03 97.4 F L 107 H 18 142/85 98 11/18/22 16:12 78 20 168/105 96 11/18/22 13:24 75 20 140/95 98 11/18/22 12:01 98.1 F 102 H 20 162/96 100 Intake and Output 11/18/22 11/19/22 11/19/22 22:59 06:59 14:59 Other: Voiding Method Toilet # Voids 2 Weight 83.461 kg Results 11/19/22 06:13 11/18/22 14:26 Cardiac Enzymes 11/18/22 11/18/22 11/18/22 Range/Units 14:26 14:26 19:18 AST 24 (14-36) U/L Troponin I <0.012 <0.012 (0.000-0.034) ng/mL 11/18/22 Range/Units 21:26 AST (14-36) U/L Troponin I <0.012 (0.000-0.034) ng/mL Coagulation 11/18/22 Range/Units 14:26 PT 9.7 (9.0-12.0) sec APTT 22.4 (22.0-30.0) sec CBC 11/18/22 Range/Units 14:26 WBC 6.5 (3.8-10.6) k/uL RBC 3.80 (3.80-5.40) m/uL Hgb 11.6 (11.4-16.0) gm/dL Hct 34.6 (34.0-46.0) % Plt Count 237 (150-450) k/uL Comprehensive Metabolic Panel 11/18/22 Range/Units 14:26 Sodium 139 (137-145) mmol/L Potassium 3.9 (3.5-5.1) mmol/L Chloride 105 (98-107) mmol/L Carbon Dioxide 27 (22-30) mmol/L BUN 7 (7-17) mg/dL Creatinine 0.72 (0.52-1.04) mg/dL Glucose 89 (74-99) mg/dL Calcium 8.9 (8.4-10.2) mg/dL AST 24 (14-36) U/L ALT 18 (4-34) U/L Alkaline Phosphatase 110 (38-126) U/L Total Protein 6.4 (6.3-8.2) g/dL Albumin 3.7 (3.5-5.0) g/dL Current Medications Generic Name Dose Route Start Last Admin Trade Name Freq PRN Reason Stop Dose Admin Hydrocodone Bitart/Acetaminophen 1 each 11/18/22 16:23 11/19/22 06:11 Hydrocodone/Apap 10-325mg 1 Each Tab PO 1 each TID PRN Administration Pain Albuterol Sulfate 2.5 mg 11/18/22 16:23 Albuterol Nebulized 2.5 Mg/3 Ml INHALATION RT-QID PRN Shortness Of Breath Aspirin 81 mg 11/18/22 21:00 11/18/22 21:39 Aspirin 81 Mg PO 81 mg HS PAMELA Administration Atorvastatin Calcium 40 mg 11/18/22 21:00 11/18/22 21:40 Atorvastatin 40 Mg Tab PO 40 mg HS PAMELA Administration Clopidogrel Bisulfate 75 mg 11/18/22 21:00 11/18/22 21:40 Clopidogrel 75 Mg Tab PO 75 mg HS PAMELA Administration Cyanocobalamin 500 mcg 11/18/22 21:00 11/18/22 21:40 Cyanocobalamin 500 Mcg Tab PO 500 mcg HS PAMELA Administration Cyclobenzaprine HCl 10 mg 11/18/22 16:23 Cyclobenzaprine 10 Mg Tab PO TID PRN Pain Duloxetine HCl 60 mg 11/18/22 21:00 11/18/22 21:40 Duloxetine Hcl 60 Mg Capsule.Dr PO 60 mg HS PAMELA Administration Famotidine 20 mg 11/18/22 21:00 11/18/22 21:41 Famotidine 20 Mg Tab PO 20 mg HS PAMELA Administration Hyoscyamine 0.125 mg 11/18/22 16:23 Hyoscyamine Sulfate 0.125 Mg Tab SL Q4H PRN GI Upset Lacosamide 100 mg 11/18/22 21:00 11/18/22 21:41 Lacosamide 50 Mg Tablet PO 100 mg HS PAMELA Administration Morphine Sulfate 4 mg 11/18/22 15:28 11/19/22 07:44 Morphine Sulfate 4 Mg/Ml Syringe IV 4 mg Q4HR PRN Administration Severe Pain (Scale 7 to 10) Naloxone HCl 0.2 mg 11/18/22 15:28 Naloxone 0.4 Mg/Ml 1 Ml Vial IV Q2M PRN Opioid Reversal Atogepant [Qulipta] 60 mg 11/18/22 21:00 11/18/22 21:40 60 Mg Tablet PO Not Given HS PAMELA Ondansetron HCl 4 mg 11/18/22 16:23 Ondansetron Odt 4 Mg Tab PO Q8HR PRN Nausea Pantoprazole Sodium 40 mg 11/18/22 21:00 11/18/22 21:41 Pantoprazole 40 Mg Tablet PO 40 mg HS PAMELA Administration Thiamine HCl 100 mg 11/18/22 21:00 11/18/22 21:41 Thiamine 100 Mg Tab PO 100 mg HS PAMELA Administration Intake and Output 11/18/22 11/19/22 11/19/22 22:59 06:59 14:59 Other: Voiding Method Toilet # Voids 2 Weight 83.461 kg 11/18/22 14:26 11/18/22 14:26
[2022-11-19 12:26] LABS: BUN/Creat Ratio 7.78 Ratio (12.00-20.00); Calcium 8.8 mg/dL (8.7-10.3); Carbon Dioxide 25.9 mmol/L (21.6-31.8); Chloride 108 mmol/L (96-109); Glucose 97 mg/dL (70-110); Potassium 4.8 mmol/L (3.5-5.5); Sodium 143 mmol/L (135-145)
[2022-11-19] MEDS ORDERED: ONDANSETRON 4 MG/2 ML VIAL IVP PRN (13:13)
--- NOTE | 2022-11-19 13:15 | P.HPIM ---
History of Present Illness H&P Date: 11/19/22 This is a 52-year-old female who presented to the emergency department with chest pain and the stub sternal region that was radiating up to the right side of her neck and around and between her shoulder blades that started a few hours before ER arrival. Patient follows with Dr. Reece in the outpatient setting with significant medical history of hyperlipidemia, hypertension, seizure disorder, migraines, anxiety with bipolar and PTSD. Patient recently underwent multiple ER visits and hospitalizations this year for chest pain and recently underwent cardiac catheterization in May of this year and had stenting to the mid LAD and most recent in October of this year had a stress test that was negative for any ischemia. Patient was admitted under observation for chest pain cardiology to evaluate. EKG showed sinus rhythm with a heart rate of 82, chest x-ray showed no acute cardiopulmonary process. Labs revealed normal CBC and BMP and troponins 3 have been negative. Review Of Systems: Constitutional: No fever, no chills, no night sweats. No weight change. No weakness, fatigue or lethargy. No daytime sleepiness. EENT: No headache. No blurred vision or double vision, no loss of vision. No loss of Hearing, no ringing in the ears, no dizziness. No nasal drainage or congestion. No epistaxis. No sore throat. Lungs: No shortness of breath, cough, no sputum production. No wheezing. Cardiovascular: Reports chest pain that radiated up to her neck and around to her back and between her shoulder blades, no lower extremity edema. No palpitations. No paroxysmal nocturnal dyspnea. No orthopnea. No lightheadedness or dizziness. No syncopal episodes. Abdominal: No abdominal pain. Reports frequent nausea, no vomiting. No diarrhea. No constipation. No bloody or tarry stools.. Reports loss of appetite. Genitourinary: No dysuria, increased frequency, urgency. No urinary retention. Musculoskeletal: No myalgias. No muscle weakness, no gait dysfunction, no frequent falls. No back pain. No neck pain. Integumentary: No wounds, no lesions. No rash or pruritus. No unusual bruising. No change in hair or nails. Neurologic: No aphasia. No facial droop. No change in mentation. No head injury. No headache. No paralysis. No paresthesia. Psychiatric: No depression. No anxiety. No mood swings. Endocrine: No abnormal blood sugars. No weight change. No excessive sweating or thirst. No cold intolerance. PHYSICAL EXAMINATION: GENERAL: The patient is alert and oriented x4, Well developed, well nourished. Obese. HEENT: Pupils are round and equally reacting to light. EOMI. no scleral icterus. No conjunctival pallor. Normocephalic, atraumatic. No pharyngeal erythema. No thyromegaly. Tender on palpation on the right side of the neck with no significant lymph nodes or abnormalities noted CARDIOVASCULAR: S1 and S2 muffled PULMONARY: diminished breath sounds bilaterally with no wheezing or rhonchi noted. ABDOMEN: soft. Nontender on exam. obese. non-distended, normoactive bowel sounds. No palpable organomegaly. MUSCULOSKELETAL: No joint swelling or deformity. EXTREMITIES: No cyanosis, clubbing, or pedal edema. NEUROLOGICAL: Gross neurological examination did not reveal any focal deficits. SKIN: No rashes. Assessment: Chest pain, ruled out ACS, troponins 3 were negative Right sided neck pain possible muscle strain, noncardiac History of coronary artery disease with previous stenting in May 2022 Obesity with a BMI of 32.6 History of [place] syndrome and follows at the [facility] History of anxiety/bipolar/PTSD depression History of seizure disorders History of migraines Former smoker History of chronic back pain GI prophylaxis DVT prophylaxis Full code Plan: Patient was admitted under observation on telemetry monitoring evaluated by cardiology with no plans for intervention and has been cleared by cardiology Home medications reviewed and resumed Continue with pain management. Patient follows with pain management for chronic pain outpatient and will need follow-up Labs reviewed and within normal limits. Patient reporting left neck and thoracic pain will obtain x-rays which are currently pending Due to multiple complex medical issues, prognosis is guarded The impression and plan of care has been dictated by Wandy Turcios, nurse practitioner as directed. Dr. Serena MD I have performed a history and examination and MDM of this patient, discussed the same with the dictator, and agree with the dictator's assessment and plan as written ,documented as a scribe. Based on total visit time, I have performed more than 50% of the visit. Any additional findings or plans will be noted. Past Medical History Past Medical History: Hyperlipidemia, Hypertension, Seizure Disorder Additional Past Medical History / Comment(s): Migraines, viral meningitis x3 as a child, 1995, 2000, chronic back pain, nerve blocks 08/2016 and 12/2016. Last seizure 10/10/2020, "ABSENT SEIZURES. HX TACHYCARDIA, GBS/CIPD, PTSD. History of Any Multi-Drug Resistant Organisms: None Reported Past Surgical History: Appendectomy, Section, Cholecystectomy, Heart Catheterization With Stent, Hernia Repair, Hysterectomy, Orthopedic Surgery, Tonsillectomy, Tubal Ligation Additional Past Surgical History / Comment(s): Hiatal Hernia, umbilical hernia repair, left rotator cuff repair, bilateral knee scopes, pain clinic procedures- occipital nerve block. abd exploratory sx(endometreosis), 3 abd scopes 1981, 1989, 1991), lumbar puncture. EGD. nerve biopsy, salvalry gland biospy Past Anesthesia/Blood Transfusion Reactions: No Reported Reaction Additional Past Anesthesia/Blood Transfusion Reaction / Comment(s): Claustrophobic Date of Last Stent Placement:: 06/03/2022 Past Psychological History: Anxiety, Bipolar, Panic Disorder, PTSD Smoking Status: Former smoker Past Alcohol Use History: None Reported Past Drug Use History: None Reported - Past Family History Mother Family Medical History: Cancer, Dementia, Diabetes Mellitus, GERD/Reflux, Hyperlipidemia, Hypertension, Thyroid Disorder Additional Family Medical History / Comment(s): CABG Father History Unknown: Yes Family Medical History: No Reported History Medications and Allergies Home Medications Medication Instructions Recorded Confirmed Type Omeprazole [PriLOSEC] 20 mg PO HS 12/15/20 11/18/22 History Thiamine [Vitamin B-1] 100 mg PO HS 01/04/21 11/18/22 History Atorvastatin [Lipitor] 40 mg PO HS 07/20/21 11/18/22 History DULoxetine HCL [Cymbalta] 60 mg PO HS 07/20/21 11/18/22 History Atogepant [Qulipta] 60 mg PO HS 06/03/22 11/18/22 History Cyclobenzaprine [Flexeril] 10 mg PO TID PRN 06/03/22 11/18/22 History HYDROcodone/APAP 10-325MG [[place] 1 tab PO TID PRN 06/03/22 11/18/22 History 10-325] Ondansetron Odt [Zofran ODT] 4 mg PO Q8HR PRN #9 tab 06/26/22 11/18/22 Rx Albuterol Inhaler [Ventolin Hfa 2 puff INHALATION RT-QID PRN 08/29/22 11/18/22 History Inhaler] Aspirin 81 mg PO HS 08/29/22 11/18/22 History Clopidogrel [Plavix] 75 mg PO HS 08/29/22 11/18/22 History Famotidine [Pepcid] 20 mg PO HS 08/29/22 11/18/22 History Hyoscyamine Sulfate [Levsin-Sl] 0.125 mg SL Q4H PRN 08/29/22 11/18/22 History Vitamin B-12 (Unknown Dose) 1 tab PO HS 09/11/22 11/18/22 History Lacosamide [Vimpat] 100 mg PO HS 11/07/22 11/18/22 History Naloxone HCl [Narcan] 4 mg NASAL ONCE PRN 11/07/22 11/18/22 History Nitroglycerin Sl Tabs [Nitrostat] 0.4 mg SL Q5M PRN 11/18/22 11/18/22 History Allergies Allergy/AdvReac Type Severity Reaction Status Date / Time dihydroergotamine Allergy Unknown Unknown Verified 11/18/22 13:55 [From Migranal] buprenorphine Allergy Rash/Hives Verified 11/18/22 13:55 gabapentin [From Neurontin] Allergy Itching/Swe Verified 11/18/22 13:55 lling latex Allergy Anaphylaxis Verified 11/18/22 13:55 naproxen [From Naprosyn] Allergy Anaphylaxis Verified 11/18/22 13:55 Penicillins Allergy Anaphylaxis Verified 11/18/22 13:55 prednisone Allergy Swelling Verified 11/18/22 13:55 quetiapine fumarate Allergy Itching, Verified 11/18/22 13:55 [From Seroquel] leg cramps rofecoxib [From Vioxx] Allergy Itching, Verified 11/18/22 13:55 leg cramps terfenadine [From Seldane] Allergy Rash/Hives Verified 11/18/22 13:55 calcium carbonate [From DHEA] AdvReac Chest Pain Verified 11/18/22 13:55 calcium phosphate,dibasic AdvReac Chest Pain Verified 11/18/22 13:55 [From DHEA] clindamycin AdvReac muscle Verified 11/18/22 13:55 cramps clonidine AdvReac fast Verified 11/18/22 13:55 heartbeat, migraine dextromethorphan HBr AdvReac face/neck Verified 11/18/22 13:55 [From NyQuil] flushing diazepam [From Valium] AdvReac Nausea & Verified 11/18/22 13:55 Vomiting divalproex sodium AdvReac Nausea & Verified 11/18/22 13:55 [From Depakote] Vomiting doxylamine [From NyQuil] AdvReac face "beet Verified 11/18/22 13:55 red", elevated temp. ibuprofen [From Motrin] AdvReac abdominal Verified 11/18/22 13:55 & muscle cramps indomethacin [From Indocin] AdvReac Abdominal Verified 11/18/22 13:55 Pain,N/V ketorolac tromethamine AdvReac "built up Verified 11/18/22 13:55 [From Toradol] in system", had to be given something to reverse lorazepam [From Ativan] AdvReac Nausea & Verified 11/18/22 13:55 Vomiting memantine [From Namenda] AdvReac Itching Verified 11/18/22 13:55 metoclopramide HCl AdvReac muscle Verified 11/18/22 13:55 [From Reglan] cramps nortriptyline [From Pamelor] AdvReac Chest Pain Verified 11/18/22 13:55 prasterone (DHEA) [From DHEA] AdvReac Chest Pain Verified 11/18/22 13:55 prochlorperazine AdvReac leg Verified 11/18/22 13:55 [From Compazine] cramping propranolol AdvReac Chest Pain Verified 11/18/22 13:55 pseudoephedrine HCl AdvReac face "beet Verified 11/18/22 13:55 [From NyQuil] red", elevated temp. quetiapine [From Seroquel] AdvReac leg Verified 11/18/22 13:55 cramping sumatriptan [From Imitrex] AdvReac migrane Verified 11/18/22 13:55 sumatriptan succinate AdvReac migrane Verified 11/18/22 13:55 [From Imitrex] topiramate [From Topamax] AdvReac "built up Verified 11/18/22 13:55 in system", had to be given something to reverse tramadol AdvReac Nausea & Verified 11/18/22 13:55 Vomiting/LEG CRAMPS/HEART FLUTTERS trazodone AdvReac "built up Verified 11/18/22 13:55 in system", had to be given something to reverse zolpidem tartrate AdvReac "Became Verified 11/18/22 13:55 [From Ambien] violent with no memory" zonisamide [From Zonegran] AdvReac inability Verified 11/18/22 13:55 to eat artificial sweetener AdvReac SEVERE Uncoded 11/18/22 12:04 MIGRAINE HEADACHE prosyn AdvReac Itching Uncoded 11/18/22 12:04 Physical Exam Vitals: Vital Signs Temp Pulse Pulse Resp BP BP Pulse Ox 11/19/22 08:43 98 11/19/22 07:25 98.3 F 97 18 137/89 97 11/19/22 02:40 98.1 F 93 18 147/110 96 11/19/22 02:23 80 16 11/18/22 21:51 98.1 F 80 16 159/104 96 11/18/22 21:01 100 18 151/93 97 11/18/22 20:03 97.4 F L 107 H 18 142/85 98 11/18/22 16:12 78 20 168/105 96 11/18/22 13:24 75 20 140/95 98 11/18/22 12:01 98.1 F 102 H 20 162/96 100 Intake and Output 11/18/22 11/19/22 11/19/22 22:59 06:59 14:59 Other: Voiding Method Toilet # Voids 2 Weight 83.461 kg Results CBC & Chem 7: 11/19/22 06:13 11/19/22 06:13 Labs: Abnormal Lab Results - Last 24 Hours (Table) 11/19/22 Range/Units 06:13 RBC 3.68 L (4.10-5.20) X 10*6/uL Hgb 10.7 L (12.0-15.0) d/dL Hct 34.3 L (37.2-46.3) % MCHC 31.2 L (32.0-37.0) d/dL Thrombosis Risk Factor Assmnt - Choose All That Apply Any of the Below Risk Factors Present?: Yes Each Factor Represents 1 point: Acute GA, Age 41-60 years, Obesity (BMI >25) Other Risk Factors: No Other congenital or acquired thrombophilia - If yes, enter type in comment: No Thrombosis Risk Factor Assessment Total Risk Factor Score: 3 Thrombosis Risk Factor Assessment Level: Moderate Risk Assessment and Plan Time with Patient: Greater than 30
--- NOTE | 2022-11-19 13:22 | XR ---
EXAMINATION TYPE: XR cervical spine limited DATE OF EXAM: 11/19/2022 COMPARISON: 12/24/2015 HISTORY: Pain TECHNIQUE: Four views are submitted. FINDINGS: The odontoid is intact. There are no compression deformities. The prevertebral soft tissue structur es are within normal limits. A Mediport catheter is incidentally noted is coarsened interstitium and upper lungs. Prominent upper mediastinum. Mild degenerative disc disease C4-C5 with posterior spondy losis and anterior spurring. Moderate to severe changes C5-C6 and mild changes at C6-C7. There is mil d multilevel facet arthropathy. IMPRESSION: 1. Multilevel [id number] degenerative disc disease most marked at C5-6 similar to the prior exa m. 2. Prominent upper mediastinum. Correlation with standard chest x-ray.
--- NOTE | 2022-11-19 13:23 | XR ---
EXAMINATION TYPE: XR thoracic spine 2V DATE OF EXAM: 11/19/2022 COMPARISON: NONE HISTORY: Pain TECHNIQUE: 3 views submitted FINDINGS: Alignment is anatomic. There is no compression deformities. There is degenerative change of the lowe r cervical spine with multilevel [id number] degenerative changes throughout the thoracic spine. . Heart size is prominent prominent. There is a Mediport catheter. Surgical clips right upper quadra nt. IMPRESSION: 1. Multilevel [id number] degenerative disc disease.
[2022-11-19 14:20] VITALS: BP 146/89; TEMP 98.1
--- NOTE | 2022-11-20 15:43 | P.DS ---
Providers Date of admission: 11/18/22 15:28 Expected date of discharge: 11/19/22 Attending physician: Sebastian Lyons Consults: 11/18/22 15:28 Consult Physician Routine Consulting Provider: [facility] Consult Reason/Comments: chest pain Do you want consulting provider notified?: Yes Primary care physician: José Reece Hospital Course: Final diagnosis Chest pain, ruled out ACS, troponins 3 were negative Right sided neck pain possible muscle strain, noncardiac, negative for any fractures on imaging History of coronary artery disease with previous stenting in May 2022 Obesity with a BMI of 32.6 History of [place] syndrome and follows at the [facility] History of anxiety/bipolar/PTSD depression History of seizure disorders History of migraines Former smoker History of chronic back pain GI prophylaxis DVT prophylaxis Full code Discharge disposition Patient is being discharged in a stable condition with guarded prognosis to [facility]. Patient will follow-up with Dr. Reece in the outpatient setting upon discharge. Patient is to continue with current medications and outpatient follow-up with cardiology as well as pain management as scheduled. Total time taken is greater than 35 minutes. Hospital course This is a 52-year-old female who was recently admitted with midsternal chest pain that was radiating up the right of her chest along with up her neck and around her back. Patient was evaluated by cardiology and has been cleared for discharge to follow-up outpatient. Imaging of her C-spine and T-spine were done with negative fractures showing chronic degenerative disc disease. Patient has been instructed to follow-up with her primary care provider along with pain management outpatient and has been cleared for discharge. Please refer to cardiology notes for further HPI. Currently no reports of chest pain, shortness of breath, or palpitations. Patient is afebrile. No reports of nausea or vomiting and patient is tolerating diet. Patient will be discharged home today. Guarded prognosis and high risk for readmission as patient has had multiple hospitalizations and ER visits for chronic pain and chest pain undergoing extensive workups. Physical exam: Gen: This is a 52-year-old female who is awake, alert and oriented 3, well- developed, well-nourished, obese HEENT: Head is atraumatic, normocephalic. Pupils equal, round. Sclerae is anicteric. NECK: Supple. No JVD. No lymphadenopathy. No thyromegaly. LUNGS: Clear to auscultation. No wheezes or rhonchi. No intercostal retractions. HEART: Regular rate and rhythm. No murmur. ABDOMEN: Soft. Bowel sounds are present. No masses. No tenderness. EXTREMITIES: No pedal edema. No calf tenderness. NEUROLOGICAL: Patient is awake, alert and oriented x3. Cranial nerves 2 through 12 are grossly intact. Please refer to medication reconciliation sheet for a list of medications. The impression and plan of care has been dictated by Wandy Turcios, Nurse Practitioner as directed. Dr. Serena MD I have performed a history and examination and MDM of this patient, discussed the same with the dictator, and agree with the dictator's assessment and plan as written ,documented as a scribe. Based on total visit time, I have performed more than 50% of the visit. Patient Condition at Discharge: Stable Plan - Discharge Summary Discharge Rx Participant: No New Discharge Prescriptions: Continue Thiamine [Vitamin B-1] 100 mg PO HS Atorvastatin [Lipitor] 40 mg PO HS HYDROcodone/APAP 10-325MG [[place] 10-325] 1 tab PO TID PRN PRN Reason: Pain Cyclobenzaprine [Flexeril] 10 mg PO TID PRN PRN Reason: Pain Atogepant [Qulipta] 60 mg PO HS Ondansetron Odt [Zofran ODT] 4 mg PO Q8HR PRN #9 tab PRN Reason: Nausea Albuterol Inhaler [Ventolin Hfa Inhaler] 2 puff INHALATION RT-QID PRN PRN Reason: Shortness Of Breath Hyoscyamine Sulfate [Levsin-Sl] 0.125 mg SL Q4H PRN PRN Reason: Gi Upset Clopidogrel [Plavix] 75 mg PO HS Aspirin 81 mg PO HS Lacosamide [Vimpat] 100 mg PO HS Nitroglycerin Sl Tabs [Nitrostat] 0.4 mg SL Q5M PRN PRN Reason: Chest Pain Omeprazole [PriLOSEC] 20 mg PO HS DULoxetine HCL [Cymbalta] 60 mg PO HS Famotidine [Pepcid] 20 mg PO HS Vitamin B-12 (Unknown Dose) 1 tab PO HS Naloxone HCl [Narcan] 4 mg NASAL ONCE PRN PRN Reason: overdose Discharge Medication List Omeprazole [PriLOSEC] 20 mg PO HS 12/15/20 [History] Thiamine [Vitamin B-1] 100 mg PO HS 01/04/21 [History] Atorvastatin [Lipitor] 40 mg PO HS 07/20/21 [History] DULoxetine HCL [Cymbalta] 60 mg PO HS 07/20/21 [History] Atogepant [Qulipta] 60 mg PO HS 06/03/22 [History] Cyclobenzaprine [Flexeril] 10 mg PO TID PRN 06/03/22 [History] HYDROcodone/APAP 10-325MG [[place] 10-325] 1 tab PO TID PRN 06/03/22 [History] Ondansetron Odt [Zofran ODT] 4 mg PO Q8HR PRN #9 tab 06/26/22 [Rx] Albuterol Inhaler [Ventolin Hfa Inhaler] 2 puff INHALATION RT-QID PRN 08/29/22 [History] Aspirin 81 mg PO HS 08/29/22 [History] Clopidogrel [Plavix] 75 mg PO HS 08/29/22 [History] Famotidine [Pepcid] 20 mg PO HS 08/29/22 [History] Hyoscyamine Sulfate [Levsin-Sl] 0.125 mg SL Q4H PRN 08/29/22 [History] Vitamin B-12 (Unknown Dose) 1 tab PO HS 09/11/22 [History] Lacosamide [Vimpat] 100 mg PO HS 11/07/22 [History] Naloxone HCl [Narcan] 4 mg NASAL ONCE PRN 11/07/22 [History] Nitroglycerin Sl Tabs [Nitrostat] 0.4 mg SL Q5M PRN 11/18/22 [History] Follow up Appointment(s)/Referral(s): José Reece MD [Primary Care Provider] - 1-2 days Eddie Corrales DO [STAFF PHYSICIAN] - 1 Week Patient Instructions/Handouts: Chest Pain (DC) Activity/Diet/Wound Care/Special Instructions: Activity Limited until follow-up Follow-up with primary care provider this week Follow-up with cardiology in one week Follow-up with pain management this week Continue to use heat packs as needed to the neck and upper back Discharge Disposition: HOME SELF-CARE
== END 2022-11-19 15:00 | disposition home or self-care (01) ==
LOC: EC 11:55 → 3SCARD 15:28 → 6NMEDSUR 20:00
PROVIDERS: ADMIT Internal Medicine; ATTEND Internal Medicine
DX: R07.9 Chest pain, unspecified (principal); M54.2 Cervicalgia; I10 Essential (primary) hypertension; E78.5 Hyperlipidemia, unspecified; M54.9 Dorsalgia, unspecified; M79.662 Pain in left lower leg; G89.29 Other chronic pain; F43.10 Post-traumatic stress disorder, unspecified; F41.0 Panic disorder [episodic paroxysmal anxiety]; F31.9 Bipolar disorder, unspecified; I25.10 Atherosclerotic heart disease of native coronary artery without angina pectoris; G43.909 Migraine, unspecified, not intractable, without status migrainosus; G61.0 Guillain-Barre syndrome; G40.909 Epilepsy, unspecified, not intractable, without status epilepticus; E66.9 Obesity, unspecified; Z68.32 Body mass index [BMI] 32.0-32.9, adult; Z87.891 Personal history of nicotine dependence; Z95.5 Presence of coronary angioplasty implant and graft; Z79.899 Other long term (current) drug therapy; Z79.82 Long term (current) use of aspirin; Z79.02 Long term (current) use of antithrombotics/antiplatelets; Z88.0 Allergy status to penicillin; Z88.1 Allergy status to other antibiotic agents; Z91.040 Latex allergy status; Z88.6 Allergy status to analgesic agent
CPT/HCPCS: 96376 ×2; 96375 ×2; 96361; 96374; 99285; 36415; 94760; 93005; 80053; 80048; 83690; 83735; 84484; 85025 ×2; 85610; 85730; 72070; 72040; 71046; G0378 ×2; J2270 ×2; J0360; J2405

== ENCOUNTER 2022-11-28 12:12 | Emergency (ER) | payer OTHER ==
--- NOTE | 2022-11-28 14:13 | ED ---
General Adult HPI - General Source: patient Mode of arrival: wheelchair Limitations: no limitations <Danilo Aguilar - Last Filed: 11/28/22 14:13> <Minerva Eller - Last Filed: 11/29/22 00:25> - General Chief complaint: Headache Stated complaint: Migrane, Nausea, vomiting Time Seen by Provider: 11/28/22 15:10 - History of Present Illness Initial comments: 52-year-old female past medical history significant for migraines presents to ED with chief complaint of headache. States onset of headache yesterday with asso ciated nausea and vomiting. Despite medications at home has been unable to get it to stop. (Danilo Aguilar) 52-year-old female well-known to the emergency room presents to the hospital reporting headache. She does have history of migraines. She follows with a neurologist. States that she took all of her home medications and continues to have a migraine. Denies visual changes. No speech deficit. Denies any lateralizing numbness, tingling or weakness. She has had meningitis but denies current fevers or neck stiffness. States that she receives a migraine cocktail usually has improvement in her symptoms. She denies any head trauma. No alleviating, precipitating or modifying factors (Minerva Eller) - Related Data Home Medications Medication Instructions Recorded Confirmed Omeprazole [PriLOSEC] 20 mg PO HS 12/15/20 11/18/22 Thiamine [Vitamin B-1] 100 mg PO HS 01/04/21 11/18/22 Atorvastatin [Lipitor] 40 mg PO HS 07/20/21 11/18/22 DULoxetine HCL [Cymbalta] 60 mg PO HS 07/20/21 11/18/22 Atogepant [Qulipta] 60 mg PO HS 06/03/22 11/18/22 Cyclobenzaprine [Flexeril] 10 mg PO TID PRN 06/03/22 11/18/22 HYDROcodone/APAP 10-325MG [Belk 1 tab PO TID PRN 06/03/22 11/18/22 10-325] Albuterol Inhaler [Ventolin Hfa 2 puff INHALATION RT-QID PRN 08/29/22 11/18/22 Inhaler] Aspirin 81 mg PO HS 08/29/22 11/18/22 Clopidogrel [Plavix] 75 mg PO HS 08/29/22 11/18/22 Famotidine [Pepcid] 20 mg PO HS 08/29/22 11/18/22 Hyoscyamine Sulfate [Levsin-Sl] 0.125 mg SL Q4H PRN 08/29/22 11/18/22 Vitamin B-12 (Unknown Dose) 1 tab PO HS 09/11/22 11/18/22 Lacosamide [Vimpat] 100 mg PO HS 11/07/22 11/18/22 Naloxone HCl [Narcan] 4 mg NASAL ONCE PRN 11/07/22 11/18/22 Nitroglycerin Sl Tabs [Nitrostat] 0.4 mg SL Q5M PRN 11/18/22 11/18/22 Previous Rx's Medication Instructions Recorded Ondansetron Odt [Zofran ODT] 4 mg PO Q8HR PRN #9 tab 06/26/22 Allergies Allergy/AdvReac Type Severity Reaction Status Date / Time dihydroergotamine Allergy Unknown Unknown Verified 11/28/22 12:54 [From Migranal] buprenorphine Allergy Rash/Hives Verified 11/28/22 12:54 gabapentin [From Neurontin] Allergy Itching/Swe Verified 11/28/22 12:54 lling latex Allergy Anaphylaxis Verified 11/28/22 12:54 naproxen [From Naprosyn] Allergy Anaphylaxis Verified 11/28/22 12:54 Penicillins Allergy Anaphylaxis Verified 11/28/22 12:54 prednisone Allergy Swelling Verified 11/28/22 12:54 quetiapine fumarate Allergy Itching, Verified 11/28/22 12:54 [From Seroquel] leg cramps rofecoxib [From Vioxx] Allergy Itching, Verified 11/28/22 12:54 leg cramps terfenadine [From Seldane] Allergy Rash/Hives Verified 11/28/22 12:54 calcium carbonate [From DHEA] AdvReac Chest Pain Verified 11/28/22 12:54 calcium phosphate,dibasic AdvReac Chest Pain Verified 11/28/22 12:54 [From DHEA] clindamycin AdvReac muscle Verified 11/28/22 12:54 cramps clonidine AdvReac fast Verified 11/28/22 12:54 heartbeat, migraine dextromethorphan HBr AdvReac face/neck Verified 11/28/22 12:54 [From NyQuil] flushing diazepam [From Valium] AdvReac Nausea & Verified 11/28/22 12:54 Vomiting divalproex sodium AdvReac Nausea & Verified 11/28/22 12:54 [From Depakote] Vomiting doxylamine [From NyQuil] AdvReac face "beet Verified 11/28/22 12:54 red", elevated temp. ibuprofen [From Motrin] AdvReac abdominal Verified 11/28/22 12:54 & muscle cramps indomethacin [From Indocin] AdvReac Abdominal Verified 11/28/22 12:54 Pain,N/V ketorolac tromethamine AdvReac "built up Verified 11/28/22 12:54 [From Toradol] in system", had to be given something to reverse lorazepam [From Ativan] AdvReac Nausea & Verified 11/28/22 12:54 Vomiting memantine [From Namenda] AdvReac Itching Verified 11/28/22 12:54 metoclopramide HCl AdvReac muscle Verified 11/28/22 12:54 [From Reglan] cramps nortriptyline [From Pamelor] AdvReac Chest Pain Verified 11/28/22 12:54 prasterone (DHEA) [From DHEA] AdvReac Chest Pain Verified 11/28/22 12:54 prochlorperazine AdvReac leg Verified 11/28/22 12:54 [From Compazine] cramping propranolol AdvReac Chest Pain Verified 11/28/22 12:54 pseudoephedrine HCl AdvReac face "beet Verified 11/28/22 12:54 [From NyQuil] red", elevated temp. quetiapine [From Seroquel] AdvReac leg Verified 11/28/22 12:54 cramping sumatriptan [From Imitrex] AdvReac migrane Verified 11/28/22 12:54 sumatriptan succinate AdvReac migrane Verified 11/28/22 12:54 [From Imitrex] topiramate [From Topamax] AdvReac "built up Verified 11/28/22 12:54 in system", had to be given something to reverse tramadol AdvReac Nausea & Verified 11/28/22 12:54 Vomiting/LEG CRAMPS/HEART FLUTTERS trazodone AdvReac "built up Verified 11/28/22 12:54 in system", had to be given something to reverse zolpidem tartrate AdvReac "Became Verified 11/28/22 12:54 [From Ambien] violent with no memory" zonisamide [From Zonegran] AdvReac inability Verified 11/28/22 12:54 to eat artificial sweetener AdvReac SEVERE Uncoded 11/28/22 12:54 MIGRAINE HEADACHE prosyn AdvReac Itching Uncoded 11/28/22 12:54 Review of Systems ROS Other: All systems not noted in ROS Statement are negative. <Danilo Aguilar - Last Filed: 11/28/22 14:13> ROS Other: All systems not noted in ROS Statement are negative. <Minerva Eller - Last Filed: 11/29/22 00:25> ROS Statement: Those systems with pertinent positive or pertinent negative responses have been documented in the HPI. Past Medical History Past Medical History: Hyperlipidemia, Hypertension, Seizure Disorder Additional Past Medical History / Comment(s): Migraines, viral meningitis x3 as a child, 1995, 2000, chronic back pain, nerve blocks 08/2016 and 12/2016. Last seizure 10/10/2020, "ABSENT SEIZURES. HX TACHYCARDIA, GBS/CIPD, PTSD. History of Any Multi-Drug Resistant Organisms: None Reported Past Surgical History: Appendectomy, Section, Cholecystectomy, Heart Catheterization, Heart Catheterization With Stent, Hernia Repair, Hysterectomy, Orthopedic Surgery, Tonsillectomy, Tubal Ligation Additional Past Surgical History / Comment(s): Hiatal Hernia, umbilical hernia repair, left rotator cuff repair, bilateral knee scopes, pain clinic procedures- occipital nerve block. abd exploratory sx(endometreosis), 3 abd scopes 1981, 1989, 1991), lumbar puncture. EGD. nerve biopsy, salvalry gland biospy Past Anesthesia/Blood Transfusion Reactions: No Reported Reaction Additional Past Anesthesia/Blood Transfusion Reaction / Comment(s): Michaela strophobic Date of Last Stent Placement:: 06/03/2022 Past Psychological History: Anxiety, Bipolar, Panic Disorder, PTSD Smoking Status: Former smoker Past Alcohol Use History: None Reported Past Drug Use History: None Reported - Past Family History Mother Family Medical History: Cancer, Dementia, Diabetes Mellitus, GERD/Reflux, Hyperlipidemia, Hypertension, Thyroid Disorder Additional Family Medical History / Comment(s): CABG Father History Unknown: Yes Family Medical History: No Reported History <Danilo Aguilar - Last Filed: 11/28/22 14:13> General Exam Limitations: no limitations General appearance: alert, in no apparent distress Eye exam: Present: normal appearance Neck exam: Present: normal inspection Extremities exam: Present: normal inspection Back exam: Present: normal inspection Neurological exam: Present: alert <Danilo Aguilar - Last Filed: 11/28/22 14:13> General appearance: alert, in no apparent distress Head exam: Present: atraumatic, normocephalic, normal inspection Eye exam: Present: normal appearance, PERRL, EOMI. Absent: scleral icterus, conjunctival injection, periorbital swelling ENT exam: Present: normal exam, mucous membranes moist Neck exam: Present: normal inspection. Absent: tenderness, meningismus, lymphadenopathy Respiratory exam: Present: normal lung sounds bilaterally. Absent: respiratory distress, wheezes, rales, rhonchi, stridor Cardiovascular Exam: Present: normal rhythm, tachycardia, normal heart sounds. Absent: systolic murmur, diastolic murmur, rubs, gallop, clicks GI/Abdominal exam: Present: soft, normal bowel sounds. Absent: distended, tenderness, guarding, rebound, rigid Extremities exam: Present: normal inspection, full ROM, normal capillary refill. Absent: tenderness, pedal edema, joint swelling, calf tenderness Back exam: Present: normal inspection Neurological exam: Present: alert, oriented X3, CN II-XII intact Psychiatric exam: Present: normal affect, normal mood Skin exam: Present: warm, dry, intact, normal color. Absent: rash <Minerva Eller - Last Filed: 11/29/22 00:25> Course Vital Signs 11/28/22 11/28/22 11/28/22 12:53 15:44 17:03 Temperature 98.3 F 98.5 F 97.9 F Pulse Rate 119 H 98 Respiratory 20 18 18 Rate Blood Pressure 133/86 143/95 131/89 O2 Sat by Pulse 99 98 Oximetry Medical Decision Making <Danilo Aguilar - Last Filed: 11/28/22 14:13> <Minerva Eller A - Last Filed: 11/29/22 00:25> - Medical Decision Making Quicknote performed. Signed Danilo Aguilar PA-C (Danilo Aguilar) Was pt. sent in by a medical professional or institution (, [facility], [employer], urgent care, hospital, or alf...) When possible be specific @ -No Did you speak to anyone other than the patient for history (EMS, parent, family, police, friend...)? What history was obtained from this source @ -No Did you review nursing and triage notes (agree or disagree)? Why? @ -I reviewed and agree with nursing and triage notes Were old charts reviewed (outside hosp., previous admission, EMS record, old EKG, old radiological studies, urgent care reports/EKG's, alf records)? Report findings @ -I reviewed patient's recent discharge summary from November 19. Patient hospitalized for chest pain and had a heart cath Differential Diagnosis (chest pain, altered mental status, abdominal pain women, abdominal pain men, vaginal bleeding, weakness, fever, dyspnea, syncope, headache, dizziness, GI bleed, back pain, seizure, CVA, palpatations, mental health, musculoskeletal)? @ -Differential Headache: Migraine, tension, cluster, carbon monoxide, central venous thrombosis, pension karma temporal arteritis, acute closure glaucoma, intercranial hemorrhage, mastoiditis, sinusitis, head injury, this is not meant to be an all-inclusive list. EKG interpreted by me (3pts min.). @ -Not done X-rays interpreted by me (1pt min.). @ -None done CT interpreted by me (1pt min.). @ -None done U/S interpreted by me (1pt. min.). @ -None done What testing was considered but not performed or refused? (CT, X-rays, U/S, labs)? Why? @ -None What meds were considered but not given or refused? Why? @ -None Did you discuss the management of the patient with other professionals (professionals i.e. , [facility], [employer], lab, RT, psych nurse, social worker school, record center coordinator, teacher, aboriginal liaison officer, case folder)? Give summary @ -No Was smoking cessation discussed for >3mins.? @ -No Was critical care preformed (if so, how long)? @ -No Were there social determinants of health that impacted care today? How? (Homelessness, low income, unemployed, alcoholism, drug addiction, transportation, low edu. Level, literacy, decrease access to med. care, long-term, rehab)? @ -No Was there de-escalation of care discussed even if they declined (Discuss DNR or withdrawal of care, Hospice)? DNR status @ -No What co-morbidities impacted this encounter? (DM, HTN, Smoking, COPD, CAD, Cancer, CVA, ARF, Chemo, Hep., AIDS, mental health diagnosis, sleep apnea, morbid obesity)? @ -Chronic migraines Was patient admitted / discharged? Hospital course, mention meds given and route, prescriptions, significant lab abnormalities, going to OR and other pertinent info. @ -Upon arrival patient was placed in room 28. Thorough history and physical exam was performed. Patient's port is accessed. She is given a migraine cocktail. Reevaluation demonstrates that she has had improvement in her headache. She'll be discharged home at this time and instructed follow-up with her neurologist. Return for any new or worsening symptoms. Patient was agreeable and she is discharged in stable condition Undiagnosed new problem with uncertain prognosis? @ -No Drug Therapy requiring intensive monitoring for toxicity (Heparin, Nitro, Insulin, Cardizem)? @ -No Were any procedures done? @ -No Diagnosis/symptom? @ -Acute exacerbation of chronic cephalgia Acute, or Chronic, or Acute on Chronic? @ -Acute on chronic Uncomplicated (without systemic symptoms) or Complicated (systemic symptoms)? @ -Complicated Side effects of treatment? @ -ALLERGIC reaction Exacerbation, Progression, or Severe Exacerbation? @ -Yes Poses a threat to life or bodily function? How? (Chest pain, USA, PA, pneumonia, PE, COPD, DKA, ARF, appy, cholecystitis, CVA, Diverticulitis, Homicidal, Suicidal, threat to staff... and all critical care pts) @ -No (Minerva Eller) Disposition <Danilo Aguilar - Last Filed: 11/28/22 14:13> Is patient prescribed a controlled substance at d/c from ED?: No Time of Disposition: 16:59 <Minerva Eller - Last Filed: 11/29/22 00:25> Clinical Impression: Headache Disposition: HOME SELF-CARE Condition: Stable Instructions (If sedation given, give patient instructions): Acute Headache (ED) Referrals: José Reece MD [Primary Care Provider] - 1-2 days
[2022-11-28] MEDS ORDERED: diphenhydrAMINE 50 MG/ML 1 ML VIAL IVP STA (15:18)
[2022-11-28] MEDS ORDERED: HYDROmorphone 1 MG/ML 1 ML SYRINGE IVP STA ×2 (15:18→16:44)
[2022-11-28] MEDS ORDERED: SODIUM CHLORIDE 0.9% 1,000 ML IV ONE (15:18)
[2022-11-28] MEDS ORDERED: ONDANSETRON 4 MG/2 ML VIAL IVP STA (15:18)
[2022-11-28 15:48] VITALS: RESP 18
[2022-11-28 17:06] VITALS: BP 131/89; PULSE 98; TEMP 97.9
== END 2022-11-28 17:46 | disposition home or self-care (01) ==
LOC: EC 12:12
DX: R51.9 Headache, unspecified (principal); E78.5 Hyperlipidemia, unspecified; F41.9 Anxiety disorder, unspecified; F31.9 Bipolar disorder, unspecified; I10 Essential (primary) hypertension; Z79.82 Long term (current) use of aspirin; Z79.899 Other long term (current) drug therapy; Z87.891 Personal history of nicotine dependence; Z88.0 Allergy status to penicillin; Z91.040 Latex allergy status; Z88.2 Allergy status to sulfonamides; Z88.1 Allergy status to other antibiotic agents; Z88.5 Allergy status to narcotic agent; Z88.6 Allergy status to analgesic agent; Z88.8 Allergy status to other drugs, medicaments and biological substances
CPT/HCPCS: 99284; 96374; 96375 ×2; 96361; J1200; J2405; J1170; 96376

== ENCOUNTER 2023-01-19 17:02 | Emergency (ER) | payer OTHER ==
[2023-01-19 17:33] LABS: Anisocytosis Slight; Basophils % (A) 0 %; Eosinophils # (A) 0.1 k/uL (0-0.7); Eosinophils % (A) 1 %; HCT 39.9 % (34.0-46.0); HGB 12.9 gm/dL (11.4-16.0); Lymphocytes # (A) 2.2 k/uL (1.0-4.8); Lymphocytes % (A) 25 %; MCH 30.5 pg (25.0-35.0); MCHC 32.4 g/dL (31.0-37.0); MCV 94.1 fL (80.0-100.0); Mean Platelet Volume 8.5; Monocytes # (A) 0.2 k/uL (0-1.0); Monocytes % (A) 3 %; Neutrophils # (A) 6.2 k/uL (1.3-7.7); Neutrophils % (A) 70 %; Platelet Count 284 k/uL (150-450); RBC 4.24 m/uL (3.80-5.40); RDW 16.6 % (11.5-15.5); WBC 8.8 k/uL (3.8-10.6)
[2023-01-19 17:44] LABS: Appearance,Urine Clear (Clear); Bilirubin,Urine Negative (Negative); Blood,Urine Negative (Negative); Color,Urine Colorless; Glucose,Urine (UA) Negative (Negative); Ketones,Urine Negative (Negative); Leukocyte Esterase,Urine Negative (Negative); Nitrite,Urine Negative (Negative); PH, Urine 5.5 (5.0-8.0); Protein,Urine Negative (Negative); Specific Gravity,Urine 1.005 (1.001-1.035); Urobilinogen,Urine <2.0 mg/dL (<2.0)
[2023-01-19 17:50] LABS: ALT 20 U/L (4-34); AST 27 U/L (14-36); African American GFR (CKD) >90 (>60 ml/min/1.73 sqM); Albumin 3.9 g/dL (3.5-5.0); Alkaline Phosphatase 111 U/L (38-126); Amylase 94 U/L (30-110); Anion Gap 12 mmol/L; Blood Urea Nitrogen 16 mg/dL (7-17); Calcium 8.6 mg/dL (8.4-10.2); Carbon Dioxide 19 mmol/L (22-30); Chloride 106 mmol/L (98-107); Glucose 200 mg/dL (74-99); Lipase 187 U/L (23-300); Non-African American GFR(CKD) >90 (>60 ml/min/1.73 sqM); Sodium 137 mmol/L (137-145); Total Bilirubin 0.4 mg/dL (0.2-1.3); Total Protein 6.6 g/dL (6.3-8.2)
[2023-01-19 18:05] LABS: Potassium 3.7 mmol/L (3.5-5.1)
--- NOTE | 2023-01-19 18:50 | ED ---
Abdominal Pain HPI - General Source: patient, RN notes reviewed Mode of arrival: ambulatory Limitations: no limitations <Rosalind Lopez - Last Filed: 01/19/23 18:50> <Danilo Aguilar - Last Filed: 01/20/23 03:21> - General Chief Complaint: Abdominal Pain Stated Complaint: Kidney pain Time Seen by Provider: 01/19/23 18:50 - History of Present Illness Initial Comments: Patient is a 52-year-old female presents to the emergency department for back pain. Patient has pain in her right back which radiates to her abdomen. She feels nauseous no vomiting. No fever or chills. (Rosalind Lopez) 52-year-old female presenting to the ED with a chief complaint of abdominal pain/back pain. Patient states today onset of right upper abdominal pain/back pain. No known injury. Notes history of prior cholecystectomy. Associated nausea no vomiting. No changes in bowel or bladder habits. No fever. No other complaints. (Danilo Aguilar) - Related Data Home Medications Medication Instructions Recorded Confirmed Omeprazole [PriLOSEC] 20 mg PO HS 12/15/20 12/24/22 Thiamine [Vitamin B-1] 100 mg PO HS 01/04/21 12/24/22 Atorvastatin [Lipitor] 40 mg PO HS 07/20/21 12/24/22 DULoxetine HCL [Cymbalta] 60 mg PO HS 07/20/21 12/24/22 Atogepant [Qulipta] 60 mg PO HS 06/03/22 12/24/22 Cyclobenzaprine [Flexeril] 10 mg PO TID PRN 06/03/22 12/24/22 HYDROcodone/APAP 10-325MG [[place] 1 tab PO TID PRN 06/03/22 12/24/22 10-325] Albuterol Inhaler [Ventolin Hfa 2 puff INHALATION RT-QID PRN 08/29/22 12/24/22 Inhaler] Aspirin 81 mg PO HS 08/29/22 12/24/22 Clopidogrel [Plavix] 75 mg PO HS 08/29/22 12/24/22 Famotidine [Pepcid] 20 mg PO HS 08/29/22 12/24/22 Hyoscyamine Sulfate [Levsin-Sl] 0.125 mg SL Q4H PRN 08/29/22 12/24/22 Vitamin B-12 (Unknown Dose) 1 tab PO HS 09/11/22 12/24/22 Lacosamide [Vimpat] 100 mg PO HS 11/07/22 12/24/22 Naloxone HCl [Narcan] 4 mg NASAL ONCE PRN 11/07/22 12/24/22 Nitroglycerin Sl Tabs [Nitrostat] 0.4 mg SL Q5M PRN 11/18/22 12/24/22 Losartan [Cozaar] 50 mg PO HS 12/20/22 12/24/22 hydroCHLOROthiazide 12.5 mg PO HS 12/20/22 12/24/22 Previous Rx's Medication Instructions Recorded Ondansetron Odt [Zofran ODT] 4 mg PO Q8HR PRN #9 tab 06/26/22 Allergies Allergy/AdvReac Type Severity Reaction Status Date / Time dihydroergotamine Allergy Unknown Unknown Verified 01/19/23 17:06 [From Migranal] buprenorphine Allergy Rash/Hives Verified 01/19/23 17:06 gabapentin [From Neurontin] Allergy Itching/Swe Verified 01/19/23 17:06 lling latex Allergy Anaphylaxis Verified 01/19/23 17:06 naproxen [From Naprosyn] Allergy Anaphylaxis Verified 01/19/23 17:06 Penicillins Allergy Anaphylaxis Verified 01/19/23 17:06 prednisone Allergy Swelling Verified 01/19/23 17:06 quetiapine fumarate Allergy Itching, Verified 01/19/23 17:06 [From Seroquel] leg cramps rofecoxib [From Vioxx] Allergy Itching, Verified 01/19/23 17:06 leg cramps terfenadine [From Seldane] Allergy Rash/Hives Verified 01/19/23 17:06 vancomycin Allergy Rash/Hives/Swelling Verified 01/19/23 17:06 @IV site calcium carbonate [From DHEA] AdvReac Chest Pain Verified 01/19/23 17:06 calcium phosphate,dibasic AdvReac Chest Pain Verified 01/19/23 17:06 [From DHEA] clindamycin AdvReac muscle Verified 01/19/23 17:06 cramps clonidine AdvReac fast Verified 01/19/23 17:06 heartbeat, migraine dextromethorphan HBr AdvReac face/neck Verified 01/19/23 17:06 [From NyQuil] flushing diazepam [From Valium] AdvReac Nausea & Verified 01/19/23 17:06 Vomiting divalproex sodium AdvReac Nausea & Verified 01/19/23 17:06 [From Depakote] Vomiting doxylamine [From NyQuil] AdvReac face "beet Verified 01/19/23 17:06 red", elevated temp. ibuprofen [From Motrin] AdvReac abdominal Verified 01/19/23 17:06 & muscle cramps indomethacin [From Indocin] AdvReac Abdominal Verified 01/19/23 17:06 Pain,N/V ketorolac tromethamine AdvReac "built up Verified 01/19/23 17:06 [From Toradol] in system", had to be given something to reverse lorazepam [From Ativan] AdvReac Nausea & Verified 01/19/23 17:06 Vomiting memantine [From Namenda] AdvReac Itching Verified 01/19/23 17:06 metoclopramide HCl AdvReac muscle Verified 01/19/23 17:06 [From Reglan] cramps nortriptyline [From Pamelor] AdvReac Chest Pain Verified 01/19/23 17:06 prasterone (DHEA) [From DHEA] AdvReac Chest Pain Verified 01/19/23 17:06 prochlorperazine AdvReac leg Verified 01/19/23 17:06 [From Compazine] cramping propranolol AdvReac Chest Pain Verified 01/19/23 17:06 pseudoephedrine HCl AdvReac face "beet Verified 01/19/23 17:06 [From NyQuil] red", elevated temp. quetiapine [From Seroquel] AdvReac leg Verified 01/19/23 17:06 cramping sumatriptan [From Imitrex] AdvReac migrane Verified 01/19/23 17:06 sumatriptan succinate AdvReac migrane Verified 01/19/23 17:06 [From Imitrex] topiramate [From Topamax] AdvReac "built up Verified 01/19/23 17:06 in system", had to be given something to reverse tramadol AdvReac Nausea & Verified 01/19/23 17:06 Vomiting/LEG CRAMPS/HEART FLUTTERS trazodone AdvReac "built up Verified 01/19/23 17:06 in system", had to be given something to reverse zolpidem tartrate AdvReac "Became Verified 01/19/23 17:06 [From Ambien] violent with no memory" zonisamide [From Zonegran] AdvReac inability Verified 01/19/23 17:06 to eat artificial sweetener AdvReac SEVERE Uncoded 01/19/23 17:06 MIGRAINE HEADACHE prosyn AdvReac Itching Uncoded 01/19/23 17:06 Review of Systems ROS Other: All systems not noted in ROS Statement are negative. <Rosalind Lopez - Last Filed: 01/19/23 18:50> ROS Other: All systems not noted in ROS Statement are negative. <Danilo Aguilar - Last Filed: 01/20/23 03:21> ROS Statement: Those systems with pertinent positive or pertinent negative responses have been documented in the HPI. Past Medical History Past Medical History: Hyperlipidemia, Hypertension, Seizure Disorder Additional Past Medical History / Comment(s): Migraines, viral meningitis x3 as a child, 1995, 2000, chronic back pain, nerve blocks 08/2016 and 12/2016. Last seizure 10/10/2020, "ABSENT SEIZURES. HX TACHYCARDIA, GBS/CIPD, PTSD. History of Any Multi-Drug Resistant Organisms: None Reported Past Surgical History: Appendectomy, Section, Cholecystectomy, Heart Catheterization, Heart Catheterization With Stent, Hernia Repair, Hysterectomy, Orthopedic Surgery, Tonsillectomy, Tubal Ligation Additional Past Surgical History / Comment(s): Hiatal Hernia, umbilical hernia repair, left rotator cuff repair, bilateral knee scopes, pain clinic procedures- occipital nerve block. abd exploratory sx(endometreosis), 3 abd scopes 1981, 1989, 1991), lumbar puncture. EGD. nerve biopsy, salvalry gland biospy Past Anesthesia/Blood Transfusion Reactions: No Reported Reaction Additional Past Anesthesia/Blood Transfusion Reaction / Comment(s): Claustrophobic Date of Last Stent Placement:: 06/03/2022 Past Psychological History: Anxiety, Bipolar, Panic Disorder, PTSD Smoking Status: Former smoker Past Alcohol Use History: None Reported Past Drug Use History: None Reported - Past Family History Mother Family Medical History: Cancer, Dementia, Diabetes Mellitus, GERD/Reflux, H yperlipidemia, Hypertension, Thyroid Disorder Additional Family Medical History / Comment(s): CABG Father History Unknown: Yes Family Medical History: No Reported History <Rosalind Lopez - Last Filed: 01/19/23 18:50> General Exam Limitations: no limitations <Rosalind Lopez - Last Filed: 01/19/23 18:50> General appearance: alert, in no apparent distress Neck exam: Present: normal inspection Respiratory exam: Present: normal lung sounds bilaterally Cardiovascular Exam: Present: regular rate, normal rhythm GI/Abdominal exam: Present: soft, tenderness (As a palpation in the right upper quadrant. No rebound guarding or rigidity.), normal bowel sounds Neurological exam: Present: alert, oriented X3 Skin exam: Present: warm, dry <Danilo Aguilar - Last Filed: 01/20/23 03:21> - General Exam Comments Initial Comments: Visual Physical Exam Vital signs reviewed General: Well-appearing, nontoxic, no acute distress. Head: Normocephalic, atraumatic Eyes: PERRLA, EOMI ENT: Airway patent Chest: Nonlabored breathing Skin: No visual rash, normal skin tone Neuro: Alert and oriented 3 Musculoskeletal: No gross abnormalities (Rosalind Lopez) Course Vital Signs 01/19/23 01/19/23 01/20/23 17:04 20:35 01:21 Temperature 98.2 F 98.4 F Pulse Rate 124 H 114 H 105 H Respiratory 22 18 18 Rate Blood Pressure 159/100 164/84 163/110 O2 Sat by Pulse 99 98 97 Oximetry Medical Decision Making - Lab Data Result diagrams: 01/19/23 17:22 01/19/23 17:22 <Rosalind Lopez - Last Filed: 01/19/23 18:50> - Lab Data Result diagrams: 01/19/23 17:22 01/19/23 17:22 <Danilo Aguilar - Last Filed: 01/20/23 03:21> - Medical Decision Making I performed the QuickNote portion of this chart - Rosalind Lopez PA-C (Rosalind Lopez) Was pt. sent in by a medical professional or institution (SHANTHI Silver, [employer] IN[employer]UMENT ASSEMBLER, urgent care, hospital, or long-term...) When possible be specific @ -No Did you speak to anyone other than the patient for history (EMS, parent, family, police, friend...)? What history was obtained from this source @ -No Did you review nursing and triage notes (agree or disagree)? Why? @ -I reviewed and agree with nursing and triage notes Were old charts reviewed (outside hosp., previous admission, EMS record, old EKG, old radiological studies, urgent care reports/EKG's, long-term records)? Report findings @ -Review of old charts shows patient well-known to the department with recurrent visits for abdominal pain. Differential Diagnosis (chest pain, altered mental status, abdominal pain women, abdominal pain men, vaginal bleeding, weakness, fever, dyspnea, syncope, headache, dizziness, GI bleed, back pain, seizure, CVA, palpatations, mental health, musculoskeletal)? @ -Differential Abdominal Pain Women: Appendicitis, Cholecystitis, diverticulosis, ischemic bowel, pancreatitis, hepatitis, UTI, gastroenteritis, AAA, incarcerated hernia, bowel obstruction, constipation, inflammatory bowel, hepatitis, peptic ulcer disease, splenic infarction, perforated viscus, vulvitis, ovarian torsion, PID, kidney stone, placenta abruption, this is not meant to be an all-inclusive list EKG interpreted by me (3pts min.). @ -None X-rays interpreted by me (1pt min.). @ -None done CT interpreted by me (1pt min.). @ -None done U/S interpreted by me (1pt. min.). @ -None done What testing was considered but not performed or refused? (CT, X-rays, U/S, labs)? Why? @ -Ultrasound was considered however given the context of cholecystectomy and unremarkable liver enzymes this was not performed. What meds were considered but not given or refused? Why? @ -None Did you discuss the management of the patient with other professionals (professionals i.e. SHANTHI Silver, [employer] IN[employer]UMENT ASSEMBLER, lab, RT, psych nurse, criminal justice social worker, security patrol driver, teacher, parking regulation enforcement officer, heel caser)? Give summary @ -No Was smoking cessation discussed for >3mins.? @ -No Was critical care preformed (if so, how long)? @ -No Were there social determinants of health that impacted care today? How? (Homelessness, low income, unemployed, alcoholism, drug addiction, transportation, low edu. Level, literacy, decrease access to med. care, detention, rehab)? @ -No Was there de-escalation of care discussed even if they declined (Discuss DNR or withdrawal of care, Hospice)? DNR status @ -No What co-morbidities impacted this encounter? (DM, HTN, Smoking, COPD, CAD, Cancer, CVA, ARF, Chemo, Hep., AIDS, mental health diagnosis, sleep apnea, morbid obesity)? @ -None Was patient admitted / discharged? Hospital course, mention meds given and route, prescriptions, significant lab abnormalities, going to OR and other pertinent info. @ -Discharge 52-year-old female presents to the ED with a chief complaint of abdominal/back pain. CT abdomen and pelvis without contrast showed no acute process. Laboratory studies unremarkable. Patient discharged home in stable condition. Advised follow-up PCP. Discussed discussed return precautions patient verbalizes agreement. Undiagnosed new problem with uncertain prognosis? @ -No Drug Therapy requiring intensive monitoring for toxicity (Heparin, Nitro, Insulin, Cardizem)? @ -No Were any procedures done? @ -No Diagnosis/symptom? @ -Abdominal pain Acute, or Chronic, or Acute on Chronic? @ -Acute Uncomplicated (without systemic symptoms) or Complicated (systemic symptoms)? @ -Uncomplicated Side effects of treatment? @ -No Exacerbation, Progression, or Severe Exacerbation? @ -No Poses a threat to life or bodily function? How? (Chest pain, [place], [place], pneumonia, PE, COPD, DKA, ARF, appy, cholecystitis, CVA, Diverticulitis, Homicidal, Suicidal, threat to staff... and all critical care pts) @ -No (Danilo Aguilar) - Lab Data Lab Results 01/19/23 01/19/23 01/19/23 Range/Units 17:22 17:22 17:22 WBC 8.8 (3.8-10.6) k/uL RBC 4.24 (3.80-5.40) m/uL Hgb 12.9 (11.4-16.0) gm/dL Hct 39.9 (34.0-46.0) % MCV 94.1 (80.0-100.0) fL MCH 30.5 (25.0-35.0) pg MCHC 32.4 (31.0-37.0) g/dL RDW 16.6 H (11.5-15.5) % Plt Count 284 (150-450) k/uL MPV 8.5 Neutrophils % 70 % Lymphocytes % 25 % Monocytes % 3 % Eosinophils % 1 % Basophils % 0 % Neutrophils # 6.2 (1.3-7.7) k/uL Lymphocytes # 2.2 (1.0-4.8) k/uL Monocytes # 0.2 (0-1.0) k/uL Eosinophils # 0.1 (0-0.7) k/uL Basophils # 0.0 (0-0.2) k/uL Anisocytosis Slight Sodium 137 (137-145) mmol/L Potassium 3.7 (3.5-5.1) mmol/L Chloride 106 (98-107) mmol/L Carbon Dioxide 19 L (22-30) mmol/L Anion Gap 12 mmol/L BUN 16 (7-17) mg/dL Creatinine 0.68 (0.52-1.04) mg/dL Est GFR (CKD-EPI)AfAm >90 (>60 ml/min/1.73 sqM) Est GFR (CKD-EPI)NonAf >90 (>60 ml/min/1.73 sqM) Glucose 200 H (74-99) mg/dL Calcium 8.6 (8.4-10.2) mg/dL Total Bilirubin 0.4 (0.2-1.3) mg/dL AST 27 (14-36) U/L ALT 20 (4-34) U/L Alkaline Phosphatase 111 (38-126) U/L Total Protein 6.6 (6.3-8.2) g/dL Albumin 3.9 (3.5-5.0) g/dL Amylase 94 (30-110) U/L Lipase 187 (23-300) U/L Urine Color Colorless Urine Appearance Clear (Clear) Urine pH 5.5 (5.0-8.0) Ur Specific [place] 1.005 (1.001-1.035) Urine Protein Negative (Negative) Urine Glucose (UA) Negative (Negative) Urine Ketones Negative (Negative) Urine Blood Negative (Negative) Urine Nitrite Negative (Negative) Urine Bilirubin Negative (Negative) Urine Urobilinogen <2.0 (<2.0) mg/dL Ur Leukocyte Esterase Negative (Negative) Disposition <Rosalind Lopez - Last Filed: 01/19/23 18:50> Is patient prescribed a controlled substance at d/c from ED?: No Time of Disposition: 03:21 <Danilo Aguilar - Last Filed: 01/20/23 03:21> Clinical Impression: Abdominal pain Disposition: HOME SELF-CARE Condition: Good Instructions (If sedation given, give patient instructions): Abdominal Pain (ED) Additional Instructions: Please return to the Emergency Department if symptoms worsen or any other concerns. Referrals: José Reece MD [Primary Care Provider] - 1-2 days
[2023-01-19 20:44] VITALS: RESP 18
[2023-01-20] MEDS ORDERED: ACETAMINOPHEN TAB 500 MG TAB PO STA (00:36)
[2023-01-20] MEDS ORDERED: ONDANSETRON 4 MG/2 ML VIAL IVP STA (00:36)
[2023-01-20] MEDS ORDERED: ONDANSETRON 4 MG/2 ML VIAL IM STA (01:37)
[2023-01-20] MEDS ORDERED: HYDROcodone/APAP 10-325MG 1 EACH TAB PO ONE (02:14)
--- NOTE | 2023-01-20 03:12 | CT ---
EXAM: CT Abdomen and Pelvis Without Intravenous Contrast CLINICAL HISTORY: upper abdominal pain r upper back pain TECHNIQUE: Axial computed tomography images of the abdomen and pelvis without intravenous contrast. CTDI is 11.2 mGy and DLP is 614 mGy-cm. This CT exam was performed using one or more of the following dose reduction techniques: automated exposure control, adjustment of the mA and/or kV according to patient size, and/or use of iterative reconstruction technique. COMPARISON: 07/10/2022. FINDINGS: Lung bases: Unremarkable. No mass. No consolidation. ABDOMEN: Liver: Unremarkable. Gallbladder and bile ducts: Post cholecystectomy. No ductal dilation. Pancreas: Unremarkable. No ductal dilation. Spleen: Unremarkable. No splenomegaly. Adrenals: Unremarkable. No mass. Kidneys and ureters: Unremarkable. No obstructing stones. No hydronephrosis. Stomach and bowel: Redemonstrated gastric sutures. No obstruction or ileus. Abundant stool throughout the colon. No evidence for diverticulitis. PELVIS: Appendix: No findings to suggest acute appendicitis. Bladder: Partially contracted. No stones. Reproductive: Post hysterectomy. Ovaries not visualized. ABDOMEN and PELVIS: Intraperitoneal space: No free air. No free fluid. Bones/joints: No acute fracture. Degenerative changes of the spine. Soft tissues: Unremarkable. Vasculature: Atherosclerotic vascular calcifications. No abdominal aortic aneurysm. Lymph nodes: Unremarkable. No enlarged lymph nodes. IMPRESSION: No obstructive uropathy. No bowel obstruction or ileus. Abundant stool throughout the colon. Status post cholecystectomy and hysterectomy. Otherwise no change.
[2023-01-20 03:35] VITALS: BP 154/94; PULSE 100; TEMP 98
== END 2023-01-20 03:32 | disposition home or self-care (01) ==
LOC: EC 17:02
DX: R10.11 Right upper quadrant pain (principal); E78.5 Hyperlipidemia, unspecified; I10 Essential (primary) hypertension; F41.9 Anxiety disorder, unspecified; F31.9 Bipolar disorder, unspecified; Z87.891 Personal history of nicotine dependence; Z79.82 Long term (current) use of aspirin; Z79.899 Other long term (current) drug therapy; Z91.040 Latex allergy status; Z88.5 Allergy status to narcotic agent; Z88.6 Allergy status to analgesic agent; Z88.1 Allergy status to other antibiotic agents; Z88.8 Allergy status to other drugs, medicaments and biological substances
CPT/HCPCS: 36415; 74176; 80053; 81003; 82150; 83690; 85025; 96372; 99285

== ENCOUNTER 2023-01-28 17:34 | Emergency (ER) | payer OTHER ==
--- NOTE | 2023-01-28 18:00 | ED ---
Headache HPI - General Source: patient, RN notes reviewed Mode of arrival: wheelchair Limitations: no limitations - History of Present Illness MD Complaint: headache, "migraine" Onset/Timin -: days(s) <Yaa Munoz - Last Filed: 01/28/23 18:00> <Rosalind Lopez - Last Filed: 01/28/23 20:40> - General Chief Complaint: Headache Stated Complaint: migraine not normal Time Seen by Provider: 01/28/23 17:56 - History of Present Illness Initial Comments: This is a 52-year-old female who presents to the emergency department for a headache. States that over the last 3-4 days she has had a headache that starts in the back of her head. States that this is not a typical headache for her. States that her normal headaches are in the right eye. She has associated photophobia and sound sensitivity. States that sound sensitivity is also not normal for her. Reports low grade fevers as well. (Yaa Munoz) I agree with the above HPI. Patient denies chest pain and shortness of breath. Denies upper respiratory symptoms, abdominal pain, urinary symptoms. Denies recent head trauma falls. (Rosalind Lopez) - Related Data Home Medications Medication Instructions Recorded Confirmed Omeprazole [PriLOSEC] 20 mg PO HS 12/15/20 12/24/22 Thiamine [Vitamin B-1] 100 mg PO HS 01/04/21 12/24/22 Atorvastatin [Lipitor] 40 mg PO HS 07/20/21 12/24/22 DULoxetine HCL [Cymbalta] 60 mg PO HS 07/20/21 12/24/22 Atogepant [Qulipta] 60 mg PO HS 06/03/22 12/24/22 Cyclobenzaprine [Flexeril] 10 mg PO TID PRN 06/03/22 12/24/22 HYDROcodone/APAP 10-325MG [[place] 1 tab PO TID PRN 06/03/22 12/24/22 10-325] Albuterol Inhaler [Ventolin Hfa 2 puff INHALATION RT-QID PRN 08/29/22 12/24/22 Inhaler] Aspirin 81 mg PO HS 08/29/22 12/24/22 Clopidogrel [Plavix] 75 mg PO HS 08/29/22 12/24/22 Famotidine [Pepcid] 20 mg PO HS 08/29/22 12/24/22 Hyoscyamine Sulfate [Levsin-Sl] 0.125 mg SL Q4H PRN 08/29/22 12/24/22 Vitamin B-12 (Unknown Dose) 1 tab PO HS 09/11/22 12/24/22 Lacosamide [Vimpat] 100 mg PO HS 11/07/22 12/24/22 Naloxone HCl [Narcan] 4 mg NASAL ONCE PRN 11/07/22 12/24/22 Nitroglycerin Sl Tabs [Nitrostat] 0.4 mg SL Q5M PRN 11/18/22 12/24/22 Losartan [Cozaar] 50 mg PO HS 12/20/22 12/24/22 hydroCHLOROthiazide 12.5 mg PO HS 12/20/22 12/24/22 Previous Rx's Medication Instructions Recorded Ondansetron Odt [Zofran ODT] 4 mg PO Q8HR PRN #9 tab 06/26/22 Allergies Allergy/AdvReac Type Severity Reaction Status Date / Time dihydroergotamine Allergy Unknown Unknown Verified 01/19/23 17:06 [From Migranal] buprenorphine Allergy Rash/Hives Verified 01/19/23 17:06 gabapentin [From Neurontin] Allergy Itching/Swe Verified 01/19/23 17:06 lling latex Allergy Anaphylaxis Verified 01/19/23 17:06 naproxen [From Naprosyn] Allergy Anaphylaxis Verified 01/19/23 17:06 Penicillins Allergy Anaphylaxis Verified 01/19/23 17:06 prednisone Allergy Swelling Verified 01/19/23 17:06 quetiapine fumarate Allergy Itching, Verified 01/19/23 17:06 [From Seroquel] leg cramps rofecoxib [From Vioxx] Allergy Itching, Verified 01/19/23 17:06 leg cramps terfenadine [From Seldane] Allergy Rash/Hives Verified 01/19/23 17:06 vancomycin Allergy Rash/Hives/Swelling Verified 01/19/23 17:06 @IV site calcium carbonate [From DHEA] AdvReac Chest Pain Verified 01/19/23 17:06 calcium phosphate,dibasic AdvReac Chest Pain Verified 01/19/23 17:06 [From DHEA] clindamycin AdvReac muscle Verified 01/19/23 17:06 cramps clonidine AdvReac fast Verified 01/19/23 17:06 heartbeat, migraine dextromethorphan HBr AdvReac face/neck Verified 01/19/23 17:06 [From NyQuil] flushing diazepam [From Valium] AdvReac Nausea & Verified 01/19/23 17:06 Vomiting divalproex sodium AdvReac Nausea & Verified 01/19/23 17:06 [From Depakote] Vomiting doxylamine [From NyQuil] AdvReac face "beet Verified 01/19/23 17:06 red", elevated temp. ibuprofen [From Motrin] AdvReac abdominal Verified 01/19/23 17:06 & muscle cramps indomethacin [From Indocin] AdvReac Abdominal Verified 01/19/23 17:06 Pain,N/V ketorolac tromethamine AdvReac "built up Verified 01/19/23 17:06 [From Toradol] in system", had to be given something to reverse lorazepam [From Ativan] AdvReac Nausea & Verified 01/19/23 17:06 Vomiting memantine [From Namenda] AdvReac Itching Verified 01/19/23 17:06 metoclopramide HCl AdvReac muscle Verified 01/19/23 17:06 [From Reglan] cramps nortriptyline [From Pamelor] AdvReac Chest Pain Verified 01/19/23 17:06 prasterone (DHEA) [From DHEA] AdvReac Chest Pain Verified 01/19/23 17:06 prochlorperazine AdvReac leg Verified 01/19/23 17:06 [From Compazine] cramping propranolol AdvReac Chest Pain Verified 01/19/23 17:06 pseudoephedrine HCl AdvReac face "beet Verified 01/19/23 17:06 [From NyQuil] red", elevated temp. quetiapine [From Seroquel] AdvReac leg Verified 01/19/23 17:06 cramping sumatriptan [From Imitrex] AdvReac migrane Verified 01/19/23 17:06 sumatriptan succinate AdvReac migrane Verified 01/19/23 17:06 [From Imitrex] topiramate [From Topamax] AdvReac "built up Verified 01/19/23 17:06 in system", had to be given something to reverse tramadol AdvReac Nausea & Verified 01/19/23 17:06 Vomiting/LEG CRAMPS/HEART FLUTTERS trazodone AdvReac "built up Verified 01/19/23 17:06 in system", had to be given something to reverse zolpidem tartrate AdvReac "Became Verified 01/19/23 17:06 [From Ambien] violent with no memory" zonisamide [From Zonegran] AdvReac inability Verified 01/19/23 17:06 to eat artificial sweetener AdvReac SEVERE Uncoded 01/19/23 17:06 MIGRAINE HEADACHE prosyn AdvReac Itching Uncoded 01/19/23 17:06 Review of Systems ROS Other: All systems not noted in ROS Statement are negative. <Yaa Munoz - Last Filed: 01/28/23 18:00> ROS Other: All systems not noted in ROS Statement are negative. <Rosalind Lopez - Last Filed: 01/28/23 20:40> ROS Statement: Those systems with pertinent positive or pertinent negative responses have been documented in the HPI. Past Medical History Past Medical History: Hyperlipidemia, Hypertension, Seizure Disorder Additional Past Medical History / Comment(s): Migraines, viral meningitis x3 as a child, 1995, 2000, chronic back pain, nerve blocks 08/2016 and 12/2016. Last seizure 10/10/2020, "ABSENT SEIZURES. HX TACHYCARDIA, GBS/CIPD, PTSD. History of Any Multi-Drug Resistant Organisms: None Reported Past Surgical History: Appendectomy, Section, Cholecystectomy, Heart Catheterization, Heart Catheterization With Stent, Hernia Repair, Hysterectomy, Orthopedic Surgery, Tonsillectomy, Tubal Ligation Additional Past Surgical History / Comment(s): Hiatal Hernia, umbilical hernia repair, left rotator cuff repair, bilateral knee scopes, pain clinic procedures- occipital nerve block. abd exploratory sx(endometreosis), 3 abd scopes 1981, 1989, 1991), lumbar puncture. EGD. nerve biopsy, salvalry gland biospy Past Anesthesia/Blood Transfusion Reactions: No Reported Reaction Additional Past Anesthesia/Blood Transfusion Reaction / Comment(s): Claustrophobic Date of Last Stent Placement:: 06/03/2022 Past Psychological History: Anxiety, Bipolar, Panic Disorder, PTSD Smoking Status: Former smoker Past Alcohol Use History: None Reported Past Drug Use History: None Reported - Past Family History Mother Family Medical History: Cancer, Dementia, Diabetes Mellitus, GERD/Reflux, Hyperlipidemia, Hypertension, Thyroid Disorder Additional Family Medical History / Comment(s): CABG Father History Unknown: Yes Family Medical History: No Reported History <Yaa Munoz - Last Filed: 01/28/23 18:00> General Exam <Yaa Munoz - Last Filed: 01/28/23 18:00> General appearance: alert Head exam: Present: atraumatic, normocephalic, normal inspection Eye exam: Present: normal appearance, PERRL, EOMI. Absent: scleral icterus, conjunctival injection, periorbital swelling Respiratory exam: Present: normal lung sounds bilaterally. Absent: respiratory distress, wheezes, rales, rhonchi, stridor Cardiovascular Exam: Present: regular rate, normal rhythm, normal heart sounds. Absent: systolic murmur, diastolic murmur, rubs, gallop, clicks Neurological exam: Present: alert Expanded Cranial nerves: EOM's Intact: Normal, Facial Sensation: Normal, Facial Palsy with Forehead Movement: Normal, Facial Palsy without Forehead Movement: Normal Cerebellar function: Finger to Nose: Normal, Heel to Gama: Normal Sensory exam: Upper Extremity Light Touch: Normal, Lower Extremity Light Touch: Normal Motor strength exam: RUE: 5, LUE: 5, RLE: 5, LLE: 5 Psychiatric exam: Present: normal affect, normal mood Skin exam: Present: warm, dry, intact, normal color. Absent: rash <Rosalind Lopez - Last Filed: 01/28/23 20:40> - General Exam Comments Initial Comments: Visual Physical Exam Vital signs reviewed General: Well-appearing, nontoxic, no acute distress. Head: Normocephalic, atraumatic Eyes: PERRLA, EOMI ENT: Airway patent Chest: Nonlabored breathing Skin: No visual rash, normal skin tone Neuro: Alert and oriented 3 Musculoskeletal: No gross abnormalities I performed the QuickNote portion of this chart. Signed Yaa Munoz PA-C. (Yaa Munoz) Course Vital Signs 01/28/23 17:57 Temperature 99.2 F Pulse Rate 107 H Respiratory 18 Rate Blood Pressure 137/89 O2 Sat by Pulse 99 Oximetry Medical Decision Making - Lab Data Result diagrams: 01/28/23 18:50 01/28/23 18:50 <Rosalind Lopez - Last Filed: 01/28/23 20:40> - Medical Decision Making Was pt. sent in by a medical professional or institution (, [facility], ACTIVITIES OFFICER, urgent care, hospital, or [facility]...) When possible be specific @ -No Did you speak to anyone other than the patient for history (EMS, parent, family, police, friend...)? What history was obtained from this source @ -No Did you review nursing and triage notes (agree or disagree)? Why? @ -I reviewed and agree with nursing and triage notes Were old charts reviewed (outside hosp., previous admission, EMS record, old EKG, old radiological studies, urgent care reports/EKG's, [facility] records)? Report findings @ -No old charts were reviewed Differential Diagnosis (chest pain, altered mental status, abdominal pain women, abdominal pain men, vaginal bleeding, weakness, fever, dyspnea, syncope, headache, dizziness, GI bleed, back pain, seizure, CVA, palpatations, mental health)? @ -Differential Headache: Migraine, tension, cluster, carbon monoxide, central venous thrombosis, pension karma temporal arteritis, acute closure glaucoma, intercranial hemorrhage, mastoiditis, sinusitis, head injury, this is not meant to be an all-inclusive list. EKG interpreted by me (3pts min.). @ -As above X-rays interpreted by me (1pt min.). @ -None done CT interpreted by me (1pt min.). @ - No acute intracranial process U/S interpreted by me (1pt. min.). @ -None done What testing was considered but not performed or refused? (CT, X-rays, U/S, labs)? Why? @ -None What meds were considered but not given or refused? Why? @ -None Did you discuss the management of the patient with other professionals (professionals i.e. , [facility], ACTIVITIES OFFICER, lab, RT, psych nurse, social scientist, lead nurse, teacher, evp chief exploration officer, rehabilitation case coordinator)? Give summary @ -No Was smoking cessation discussed for >3mins.? @ -No Was critical care preformed (if so, how long)? @ -No Were there social determinants of health that impacted care today? How? (Homelessness, low income, unemployed, alcoholism, drug addiction, transportation, low edu. Level, literacy, decrease access to med. care, [place] [facility], rehab)? @ -No Was there de-escalation of care discussed even if they declined (Discuss DNR or withdrawal of care, Hospice)? DNR status @ -No What co-morbidities impacted this encounter? (DM, HTN, Smoking, COPD, CAD, Cancer, CVA, ARF, Chemo, Hep., AIDS, mental health diagnosis, sleep apnea, morbid obesity)? @ -None Was patient admitted / discharged? Hospital course, mention meds given and route, prescriptions, significant lab abnormalities, going to OR and other pertinent info. @ -52-year-old migraine history present with migraine. No neurological deficit on exam.Due to severity and inconsistency with previous migraine CT was performed which was interpreted by myself showing no acute intracranial process. Labs unremarkable pain is controlled patient is discharged in stable condition Undiagnosed new problem with uncertain prognosis? @ [N] Drug Therapy requiring intensive monitoring for toxicity (Heparin, Nitro, Insulin, Cardizem)? @ [N] Were any procedures done? @ [N] Diagnosis/symptom? @ -Migraine Acute, or Chronic, or Acute on Chronic? @ -Acute Uncomplicated (without systemic symptoms) or Complicated (systemic symptoms)? @ Uncomplicated Side effects of treatment? @ [N] Exacerbation, Progression, or Severe Exacerbation? @ [N] Poses a threat to life or bodily function? How? (Chest pain, [place], [place], pneumonia, PE, COPD, DKA, ARF, appy, cholecystitis, CVA, Diverticulitis, Homicidal, Suici fiona, threat to staff... and all critical care pts) @ [N] Dr. Mclaughlin is my attending (Rosalind Lopez) - Lab Data Lab Results 01/28/23 01/28/23 01/28/23 Range/Units 18:50 18:50 18:50 WBC 6.4 (3.8-10.6) k/uL RBC 3.85 (3.80-5.40) m/uL Hgb 12.1 (11.4-16.0) gm/dL Hct 36.3 (34.0-46.0) % MCV 94.4 (80.0-100.0) fL MCH 31.4 (25.0-35.0) pg MCHC 33.3 (31.0-37.0) g/dL RDW 16.8 H (11.5-15.5) % Plt Count 264 (150-450) k/uL MPV 8.4 Neutrophils % 60 % Lymphocytes % 28 % Monocytes % 6 % Eosinophils % 2 % Basophils % 0 % Neutrophils # 3.8 (1.3-7.7) k/uL Lymphocytes # 1.8 (1.0-4.8) k/uL Monocytes # 0.4 (0-1.0) k/uL Eosinophils # 0.2 (0-0.7) k/uL Basophils # 0.0 (0-0.2) k/uL Anisocytosis Slight Sodium 138 (137-145) mmol/L Potassium 4.6 (3.5-5.1) mmol/L Chloride 105 (98-107) mmol/L Carbon Dioxide 24 (22-30) mmol/L Anion Gap 9 mmol/L BUN 15 (7-17) mg/dL Creatinine 0.78 (0.52-1.04) mg/dL Est GFR (CKD-EPI)AfAm >90 (>60 ml/min/1.73 sqM) Est GFR (CKD-EPI)NonAf 89 (>60 ml/min/1.73 sqM) Glucose 88 (74-99) mg/dL Calcium 8.7 (8.4-10.2) mg/dL Total Bilirubin 0.2 (0.2-1.3) mg/dL AST 26 (14-36) U/L ALT 26 (4-34) U/L Alkaline Phosphatase 105 (38-126) U/L Total Protein 6.6 (6.3-8.2) g/dL Albumin 3.9 (3.5-5.0) g/dL Influenza Type A (PCR) Not Detected (Not Detectd) Influenza Type B (PCR) Not Detected (Not Detectd) RSV (PCR) Not Detected (Not Detectd) SARS-CoV-2 (PCR) Not Detected (Not Detectd) Disposition <Yaa Munoz - Last Filed: 01/28/23 18:00> Is patient prescribed a controlled substance at d/c from ED?: No <Rosalind Lopez - Last Filed: 01/28/23 20:40> Clinical Impression: Migraine Disposition: HOME SELF-CARE Condition: Good Instructions (If sedation given, give patient instructions): Migraine Headache (ED) Additional Instructions: Take medication as directed. Please follow-up with neurology in 1-2 days. Return to the emergency department if you experience new, concerning, or worsening symptoms. Referrals: José Reece MD [Primary Care Provider] - 1-2 days
[2023-01-28 18:06] VITALS: BP 137/89; PULSE 107; RESP 18; TEMP 99.2
[2023-01-28 18:57] LABS: Anisocytosis Slight; Basophils % (A) 0 %; Eosinophils # (A) 0.2 k/uL (0-0.7); Eosinophils % (A) 2 %; HCT 36.3 % (34.0-46.0); HGB 12.1 gm/dL (11.4-16.0); Lymphocytes # (A) 1.8 k/uL (1.0-4.8); Lymphocytes % (A) 28 %; MCH 31.4 pg (25.0-35.0); MCHC 33.3 g/dL (31.0-37.0); MCV 94.4 fL (80.0-100.0); Mean Platelet Volume 8.4; Monocytes # (A) 0.4 k/uL (0-1.0); Monocytes % (A) 6 %; Neutrophils # (A) 3.8 k/uL (1.3-7.7); Neutrophils % (A) 60 %; Platelet Count 264 k/uL (150-450); RBC 3.85 m/uL (3.80-5.40); RDW 16.8 % (11.5-15.5); WBC 6.4 k/uL (3.8-10.6)
--- NOTE | 2023-01-28 19:05 | CT ---
EXAMINATION TYPE: CT brain wo con CT DLP: 1090.4 mGycm, Automated exposure control for dose reduction was used. DATE OF EXAM: 01/28/2023 6:56 PM COMPARISON: 07/18/2022. CLINICAL INDICATION:Female, 52 years old with history of headache, PT STATES ABNORMAL MIGRAINE TECHNIQUE: Brain: Axial CT images of the brain were obtained with coronal and sagittal reformats created and rev iewed. Contrast used: None. Oral contrast used: None. FINDINGS: Brain: Extra-axial spaces: No abnormal extra-axial fluid collections. Ventricular system: Within normal limits Cerebral parenchyma: No acute intraparenchymal hemorrhage or mass effect. The mercer-white junction is well differentiated. Cerebellum: Unremarkable. Mass effect: No evidence of midline shift. Intracranial vasculature: unremarkable Soft tissues: Normal. Calvarium/osseous structures: No depressed skull fracture. Paranasal sinuses and mastoid air cells: Mild scattered paranasal sinus disease. Visualized orbits: Orbital contents are intact. IMPRESSION: No acute intracranial process.
[2023-01-28 19:11] LABS: ALT 26 U/L (4-34); AST 26 U/L (14-36); African American GFR (CKD) >90 (>60 ml/min/1.73 sqM); Albumin 3.9 g/dL (3.5-5.0); Alkaline Phosphatase 105 U/L (38-126); Anion Gap 9 mmol/L; Blood Urea Nitrogen 15 mg/dL (7-17); Calcium 8.7 mg/dL (8.4-10.2); Carbon Dioxide 24 mmol/L (22-30); Chloride 105 mmol/L (98-107); Glucose 88 mg/dL (74-99); Non-African American GFR(CKD) 89 (>60 ml/min/1.73 sqM); Potassium 4.6 mmol/L (3.5-5.1); Sodium 138 mmol/L (137-145); Total Bilirubin 0.2 mg/dL (0.2-1.3); Total Protein 6.6 g/dL (6.3-8.2)
[2023-01-28] MEDS ORDERED: DEXAMETHASONE SOD PHOSPHATE 10 MG/ML 1 ML VIAL IVP STA (19:12)
[2023-01-28] MEDS ORDERED: SODIUM CHLORIDE 0.9% 1,000 ML IV STA (19:12)
[2023-01-28] MEDS ORDERED: HYDROmorphone 0.5 MG/0.5 ML SYRINGE IVP STA ×2 (19:13→20:12)
[2023-01-28] MEDS ORDERED: ONDANSETRON 4 MG/2 ML VIAL IVP STA (19:21)
== END 2023-01-28 20:40 | disposition home or self-care (01) ==
LOC: EC 17:34
DX: G43.909 Migraine, unspecified, not intractable, without status migrainosus (principal); I10 Essential (primary) hypertension; F41.9 Anxiety disorder, unspecified; E78.5 Hyperlipidemia, unspecified; F31.9 Bipolar disorder, unspecified; Z79.02 Long term (current) use of antithrombotics/antiplatelets; Z79.899 Other long term (current) drug therapy; Z87.891 Personal history of nicotine dependence; Z91.040 Latex allergy status; Z88.0 Allergy status to penicillin; Z88.1 Allergy status to other antibiotic agents; Z88.2 Allergy status to sulfonamides; Z88.5 Allergy status to narcotic agent; Z88.6 Allergy status to analgesic agent; Z88.8 Allergy status to other drugs, medicaments and biological substances; Z90.49 Acquired absence of other specified parts of digestive tract; Z20.822 Contact with and (suspected) exposure to COVID-19
CPT/HCPCS: 36415; 80053; 85025; 87636; 70450; 99284; 96374; 96375 ×2; 96376; 96361; J2405; J1642; J1170

== ENCOUNTER 2023-02-21 07:23 | Emergency (ER) | payer OTHER ==
--- NOTE | 2023-02-21 07:34 | ED ---
General Adult HPI - General Stated complaint: Migraine Time Seen by Provider: 02/21/23 07:27 Source: patient, RN notes reviewed Mode of arrival: ambulatory Limitations: no limitations - History of Present Illness Initial comments: 52-year-old female with history of migraines presents the emergency department with a chief complaint of headache 4 days. Patient reports that she has a history of migraines and this feels like a typical one for her. She is admitting to photophobia, nausea, vomiting. She reports that she does have a neurologist at [facility] who did medication changes however they have not provided her any significant improvement. She denies any dizziness, lightheadedness, changes or vision loss, chest pain, shortness of breath. Den ies recent falls or trauma. - Related Data Home Medications Medication Instructions Recorded Confirmed Omeprazole [PriLOSEC] 20 mg PO HS 12/15/20 12/24/22 Thiamine [Vitamin B-1] 100 mg PO HS 01/04/21 12/24/22 Atorvastatin [Lipitor] 40 mg PO HS 07/20/21 12/24/22 DULoxetine HCL [Cymbalta] 60 mg PO HS 07/20/21 12/24/22 Atogepant [Qulipta] 60 mg PO HS 06/03/22 12/24/22 Cyclobenzaprine [Flexeril] 10 mg PO TID PRN 06/03/22 12/24/22 HYDROcodone/APAP 10-325MG [[place] 1 tab PO TID PRN 06/03/22 12/24/22 10-325] Albuterol Inhaler [Ventolin Hfa 2 puff INHALATION RT-QID PRN 08/29/22 12/24/22 Inhaler] Aspirin 81 mg PO HS 08/29/22 12/24/22 Clopidogrel [Plavix] 75 mg PO HS 08/29/22 12/24/22 Famotidine [Pepcid] 20 mg PO HS 08/29/22 12/24/22 Hyoscyamine Sulfate [Levsin-Sl] 0.125 mg SL Q4H PRN 08/29/22 12/24/22 Vitamin B-12 (Unknown Dose) 1 tab PO HS 09/11/22 12/24/22 Lacosamide [Vimpat] 100 mg PO HS 11/07/22 12/24/22 Naloxone HCl [Narcan] 4 mg NASAL ONCE PRN 11/07/22 12/24/22 Nitroglycerin Sl Tabs [Nitrostat] 0.4 mg SL Q5M PRN 11/18/22 12/24/22 Losartan [Cozaar] 50 mg PO HS 12/20/22 12/24/22 hydroCHLOROthiazide 12.5 mg PO HS 12/20/22 12/24/22 Previous Rx's Medication Instructions Recorded Ondansetron Odt [Zofran ODT] 4 mg PO Q8HR PRN #9 tab 06/26/22 Allergies Allergy/AdvReac Type Severity Reaction Status Date / Time dihydroergotamine Allergy Unknown Unknown Verified 02/21/23 07:27 [From Migranal] buprenorphine Allergy Rash/Hives Verified 02/21/23 07:27 gabapentin [From Neurontin] Allergy Itching/Swe Verified 02/21/23 07:27 lling latex Allergy Anaphylaxis Verified 02/21/23 07:27 naproxen [From Naprosyn] Allergy Anaphylaxis Verified 02/21/23 07:27 Penicillins Allergy Anaphylaxis Verified 02/21/23 07:27 prednisone Allergy Swelling Verified 02/21/23 07:27 quetiapine fumarate Allergy Itching, Verified 02/21/23 07:27 [From Seroquel] leg cramps rofecoxib [From Vioxx] Allergy Itching, Verified 02/21/23 07:27 leg cramps terfenadine [From Seldane] Allergy Rash/Hives Verified 02/21/23 07:27 vancomycin Allergy Rash/Hives/Swelling Verified 02/21/23 07:27 @IV site calcium carbonate [From DHEA] AdvReac Chest Pain Verified 02/21/23 07:27 calcium phosphate,dibasic AdvReac Chest Pain Verified 02/21/23 07:27 [From DHEA] clindamycin AdvReac muscle Verified 02/21/23 07:27 cramps clonidine AdvReac fast Verified 02/21/23 07:27 heartbeat, migraine dextromethorphan HBr AdvReac face/neck Verified 02/21/23 07:27 [From NyQuil] flushing diazepam [From Valium] AdvReac Nausea & Verified 02/21/23 07:27 Vomiting divalproex sodium AdvReac Nausea & Verified 02/21/23 07:27 [From Depakote] Vomiting doxylamine [From NyQuil] AdvReac face "beet Verified 02/21/23 07:27 red", elevated temp. ibuprofen [From Motrin] AdvReac abdominal Verified 02/21/23 07:27 & muscle cramps indomethacin [From Indocin] AdvReac Abdominal Verified 02/21/23 07:27 Pain,N/V ketorolac tromethamine AdvReac "built up Verified 02/21/23 07:27 [From Toradol] in system", had to be given something to reverse lorazepam [From Ativan] AdvReac Nausea & Verified 02/21/23 07:27 Vomiting memantine [From Namenda] AdvReac Itching Verified 02/21/23 07:27 metoclopramide HCl AdvReac muscle Verified 02/21/23 07:27 [From Reglan] cramps nortriptyline [From Pamelor] AdvReac Chest Pain Verified 02/21/23 07:27 prasterone (DHEA) [From DHEA] AdvReac Chest Pain Verified 02/21/23 07:27 prochlorperazine AdvReac leg Verified 02/21/23 07:27 [From Compazine] cramping propranolol AdvReac Chest Pain Verified 02/21/23 07:27 pseudoephedrine HCl AdvReac face "beet Verified 02/21/23 07:27 [From NyQuil] red", elevated temp. quetiapine [From Seroquel] AdvReac leg Verified 02/21/23 07:27 cramping sumatriptan [From Imitrex] AdvReac migrane Verified 02/21/23 07:27 sumatriptan succinate AdvReac migrane Verified 02/21/23 07:27 [From Imitrex] topiramate [From Topamax] AdvReac "built up Verified 02/21/23 07:27 in system", had to be given something to reverse tramadol AdvReac Nausea & Verified 02/21/23 07:27 Vomiting/LEG CRAMPS/HEART FLUTTERS trazodone AdvReac "built up Verified 02/21/23 07:27 in system", had to be given something to reverse zolpidem tartrate AdvReac "Became Verified 02/21/23 07:27 [From Ambien] violent with no memory" zonisamide [From Zonegran] AdvReac inability Verified 02/21/23 07:27 to eat artificial sweetener AdvReac SEVERE Uncoded 02/21/23 07:27 MIGRAINE HEADACHE prosyn AdvReac Itching Uncoded 02/21/23 07:27 Review of Systems ROS Statement: Those systems with pertinent positive or pertinent negative responses have been documented in the HPI. ROS Other: All systems not noted in ROS Statement are negative. Past Medical History Past Medical History: Hyperlipidemia, Hypertension, Seizure Disorder Additional Past Medical History / Comment(s): Migraines, viral meningitis x3 as a child, 1995, 2000, chronic back pain, nerve blocks 08/2016 and 12/2016. Last seizure 10/10/2020, "ABSENT SEIZURES. HX TACHYCARDIA, GBS/CIPD, PTSD. History of Any Multi-Drug Resistant Organisms: None Reported Past Surgical History: Appendectomy, Section, Cholecystectomy, Heart Catheterization, Heart Catheterization With Stent, Hernia Repair, Hysterectomy, Orthopedic Surgery, Tonsillectomy, Tubal Ligation Additional Past Surgical History / Comment(s): Hiatal Hernia, umbilical hernia repair, left rotator cuff repair, bilateral knee scopes, pain clinic procedures- occipital nerve block. abd exploratory sx(endometreosis), 3 abd scopes 1981, 1989, 1991), lumbar puncture. EGD. nerve biopsy, salvalry gland biospy Past Anesthesia/Blood Transfusion Reactions: No Reported Reaction Additional Past Anesthesia/Blood Transfusion Reaction / Comment(s): Claustrophobic Date of Last Stent Placement:: 06/03/2022 Past Psychological History: Anxiety, Bipolar, Panic Disorder, PTSD Smoking Status: Former smoker Past Alcohol Use History: None Reported Past Drug Use History: None Reported - Past Family History Mother Family Medical History: Cancer, Dementia, Diabetes Mellitus, GERD/Reflux, Hyperlipidemia, Hypertension, Thyroid Disorder Additional Family Medical History / Comment(s): CABG Father History Unknown: Yes Family Medical History: No Reported History General Exam - General Exam Comments Initial Comments: Visual Physical Exam Vital signs reviewed General: Well-appearing, nontoxic, no acute distress. Head: Normocephalic, atraumatic Eyes: PERRLA, EOMI ENT: Airway patent Chest: Nonlabored breathing Skin: No visual rash, normal skin tone Neuro: Alert and oriented 3 Musculoskeletal: No gross abnormalities Limitations: no limitations Course Vital Signs 02/21/23 02/21/23 02/21/23 07:25 08:01 09:42 Temperature 98.2 F Pulse Rate 112 H 104 H 80 Respiratory 20 18 18 Rate Blood Pressure 141/89 139/98 126/78 O2 Sat by Pulse 99 100 100 Oximetry - Reevaluation(s) Reevaluation #1: 02/21/23 08:53 Patient reevaluated patient aware awaiting labs. Medical Decision Making - Medical Decision Making Was pt. sent in by a medical professional or institution (, SHANTHI, PROFESSOR OF HISTORICAL THEOLOGY, urgent care, hospital, or skilled nursing...) When possible be specific @ -[No] Did you speak to anyone other than the patient for history (EMS, parent, family, police, friend...)? What history was obtained from this source @ -[No] Did you review nursing and triage notes (agree or disagree)? Why? @ -[I reviewed and agree with nursing and triage notes] Were old charts reviewed (outside hosp., previous admission, EMS record, old EKG, old radiological studies, urgent care reports/EKG's, skilled nursing records)? Report findings @ -yes from 01/28/2023 which reveals a negative CAT scan negative for any intracranial process. Differential Diagnosis (chest pain, altered mental status, abdominal pain women, abdominal pain men, vaginal bleeding, weakness, fever, dyspnea, syncope, headache, dizziness, GI bleed, back pain, seizure, CVA, palpatations, mental health, musculoskeletal)? @ -[not applicable] EKG interpreted by me (3pts min.). @ -[As above] X-rays interpreted by me (1pt min.). @ -[None done] CT interpreted by me (1pt min.). @ -[None done] U/S interpreted by me (1pt. min.). @ -[None done] What testing was considered but not performed or refused? (CT, X-rays, U/S, labs)? Why? @ -[None] What meds were considered but not given or refused? Why? @ -[None] Did you discuss the management of the patient with other professionals (professionals i.e. , SHANTHI, PROFESSOR OF HISTORICAL THEOLOGY, lab, RT, psych nurse, social sciences department chair, rn maternal child, teacher, licensing officer, case worker)? Give summary @ -[No] Was smoking cessation discussed for >3mins.? @ -[No] Was critical care preformed (if so, how long)? @ -[No] Were there social determinants of health that impacted care today? How? (Homelessness, low income, unemployed, alcoholism, drug addiction, transportation, low edu. Level, literacy, decrease access to med. care, longterm, rehab)? @ -[No] Was there de-escalation of care discussed even if they declined (Discuss DNR or withdrawal of care, Hospice)? DNR status @ -[No] What co-morbidities impacted this encounter? (DM, HTN, Smoking, COPD, CAD, Cancer, CVA, ARF, Chemo, Hep., AIDS, mental health diagnosis, sleep apnea, morbid obesity)? @ -[None] Was patient admitted / discharged? Hospital course, mention meds given and route, prescriptions, significant lab abnormalities, going to OR and other pertinent info. @ Discharged. 62-year-old female who is well-known to this emergency Department with chief complaint of headache. Patient had thorough history and physical exam performed. No focal deficits noted upon exam. Patient able to move all extremities freely and noted with a steady gait. Heart rate regular rhythm, lungs auscultation bilaterally abdomen soft and nontender. Patient describes her headache as a typical migraine and chronic in nature .Patient had laboratory studies which were unremarkable. She was provided the lateral for symptomatic improvement. Patient discharged in stable condition with return parameters discussed. Case was discussed with Dr. newby Sabina who agrees with plan Undiagnosed new problem with uncertain prognosis? @ -[No] Drug Therapy requiring intensive monitoring for toxicity (Heparin, Nitro, Insulin, Cardizem)? @ -[No] Were any procedures done? @ -[No] Diagnosis/symptom? @ -Headache Acute, or Chronic, or Acute on Chronic? @ -Acute Uncomplicated (without systemic symptoms) or Complicated (systemic symptoms)? @ -Uncomplicaated Side effects of treatment? @ -[No] Exacerbation, Progression, or Severe Exacerbation? @ -[No] Poses a threat to life or bodily function? How? (Chest pain, [place], [place], pneumonia, PE, COPD, DKA, ARF, appy, cholecystitis, CVA, Diverticulitis, Homicidal, Suicidal, threat to staff... and all critical care pts) @ -Low likelihood - Lab Data Result diagrams: 02/21/23 08:06 02/21/23 08:06 Lab Results 02/21/23 02/21/23 Range/Units 08:06 08:06 WBC 7.0 (3.8-10.6) k/uL RBC 3.62 L (3.80-5.40) m/uL Hgb 11.6 (11.4-16.0) gm/dL Hct 34.4 (34.0-46.0) % MCV 95.1 (80.0-100.0) fL MCH 31.9 (25.0-35.0) pg MCHC 33.6 (31.0-37.0) g/dL RDW 16.0 H (11.5-15.5) % Plt Count 250 (150-450) k/uL MPV 8.0 Neutrophils % 58 % Lymphocytes % 30 % Monocytes % 7 % Eosinophils % 3 % Basophils % 1 % Neutrophils # 4.0 (1.3-7.7) k/uL Lymphocytes # 2.1 (1.0-4.8) k/uL Monocytes # 0.5 (0-1.0) k/uL Eosinophils # 0.2 (0-0.7) k/uL Basophils # 0.0 (0-0.2) k/uL Sodium 139 (137-145) mmol/L Potassium 3.5 (3.5-5.1) mmol/L Chloride 103 (98-107) mmol/L Carbon Dioxide 26 (22-30) mmol/L Anion Gap 10 mmol/L BUN 7 (7-17) mg/dL Creatinine 0.80 (0.52-1.04) mg/dL Est GFR (CKD-EPI)AfAm >90 (>60 ml/min/1.73 sqM) Est GFR (CKD-EPI)NonAf 87 (>60 ml/min/1.73 sqM) Glucose 91 (74-99) mg/dL Calcium 7.9 L (8.4-10.2) mg/dL Total Bilirubin 0.3 (0.2-1.3) mg/dL AST 32 (14-36) U/L ALT 21 (4-34) U/L Alkaline Phosphatase 94 (38-126) U/L Total Protein 6.1 L (6.3-8.2) g/dL Albumin 3.5 (3.5-5.0) g/dL Disposition Clinical Impression: Migraine Disposition: HOME SELF-CARE Condition: Stable Instructions (If sedation given, give patient instructions): Acute Headache (ED) Additional Instructions: Please monitor symptoms closely Please return to the nearest emergency department if worsening headache Is patient prescribed a controlled substance at d/c from ED?: No Referrals: José Reece MD [Primary Care Provider] - 1-2 days Time of Disposition: 09:36
[2023-02-21] MEDS ORDERED: HYDROmorphone 0.5 MG/0.5 ML SYRINGE IVP STA (07:37)
[2023-02-21] MEDS ORDERED: SODIUM CHLORIDE 0.9% 1,000 ML IV ONE (07:37)
[2023-02-21 07:50] VITALS: TEMP 98.2
[2023-02-21] MEDS ORDERED: ONDANSETRON 4 MG/2 ML VIAL IVP STA (08:01)
[2023-02-21 08:17] VITALS: RESP 18
[2023-02-21 08:23] LABS: Basophils % (A) 1 %; Eosinophils # (A) 0.2 k/uL (0-0.7); Eosinophils % (A) 3 %; HCT 34.4 % (34.0-46.0); HGB 11.6 gm/dL (11.4-16.0); Lymphocytes # (A) 2.1 k/uL (1.0-4.8); Lymphocytes % (A) 30 %; MCH 31.9 pg (25.0-35.0); MCHC 33.6 g/dL (31.0-37.0); MCV 95.1 fL (80.0-100.0); Monocytes # (A) 0.5 k/uL (0-1.0); Monocytes % (A) 7 %; Neutrophils % (A) 58 %; Platelet Count 250 k/uL (150-450); RBC 3.62 m/uL (3.80-5.40)
[2023-02-21 08:57] LABS: ALT 21 U/L (4-34); AST 32 U/L (14-36); African American GFR (CKD) >90 (>60 ml/min/1.73 sqM); Albumin 3.5 g/dL (3.5-5.0); Alkaline Phosphatase 94 U/L (38-126); Anion Gap 10 mmol/L; Blood Urea Nitrogen 7 mg/dL (7-17); Calcium 7.9 mg/dL (8.4-10.2); Carbon Dioxide 26 mmol/L (22-30); Chloride 103 mmol/L (98-107); Glucose 91 mg/dL (74-99); Non-African American GFR(CKD) 87 (>60 ml/min/1.73 sqM); Potassium 3.5 mmol/L (3.5-5.1); Sodium 139 mmol/L (137-145); Total Bilirubin 0.3 mg/dL (0.2-1.3); Total Protein 6.1 g/dL (6.3-8.2)
[2023-02-21] MEDS ORDERED: HYDROmorphone 1 MG/ML 1 ML SYRINGE IVP STA (09:02)
[2023-02-21 10:02] VITALS: BP 126/78; PULSE 80
== END 2023-02-21 09:43 | disposition home or self-care (01) ==
LOC: EC 07:23
DX: G43.909 Migraine, unspecified, not intractable, without status migrainosus (principal); I10 Essential (primary) hypertension; E78.5 Hyperlipidemia, unspecified; F41.9 Anxiety disorder, unspecified; F31.9 Bipolar disorder, unspecified; Z79.899 Other long term (current) drug therapy; Z79.82 Long term (current) use of aspirin; Z87.891 Personal history of nicotine dependence; Z88.1 Allergy status to other antibiotic agents; Z88.2 Allergy status to sulfonamides; Z88.5 Allergy status to narcotic agent; Z88.6 Allergy status to analgesic agent; Z88.8 Allergy status to other drugs, medicaments and biological substances; Z88.0 Allergy status to penicillin; Z91.040 Latex allergy status; Z91.018 Allergy to other foods
CPT/HCPCS: 36415; 80053; 85025; 99284; 96374; 96375 ×2; 96376; 96361 ×2; J2405; J1642; J1170 ×2

== ENCOUNTER 2023-03-14 00:03 | Emergency (ER) | payer OTHER ==
[2023-03-14 00:27] VITALS: BP 178/105; PULSE 114; RESP 20; TEMP 98
[2023-03-14] MEDS ORDERED: HYDROmorphone 1 MG/ML 1 ML SYRINGE IM STA (01:49)
[2023-03-14] MEDS ORDERED: diphenhydrAMINE 50 MG CAP PO STA (01:50)
--- NOTE | 2023-03-14 01:52 | ED ---
Headache HPI - General Chief Complaint: Headache Stated Complaint: Migraine Time Seen by Provider: 03/14/23 01:34 Source: RN notes reviewed, old records reviewed Mode of arrival: ambulatory Limitations: no limitations - History of Present Illness Initial Comments: This is a 53-year-old female to the emergency department for evaluation. Patient then started today for evaluation of recurrent migraine history of migraine headaches severe migraine here in the emergency room. Patient states she has significant nausea vomiting unable to take medications at home MD Complaint: headache, "migraine" -: days(s) Onset Description: sudden Location: right, left, frontal, temporal Severity: severe Severity scale (1-10): 8 Quality: aching Consistency: constant Improves With: nothing Worsens With: none Associated Symptoms: nausea, vomiting Other Symptoms: other Treatments Prior to Arrival: none - Related Data Home Medications Medication Instructions Recorded Confirmed Omeprazole [PriLOSEC] 20 mg PO HS 12/15/20 12/24/22 Thiamine [Vitamin B-1] 100 mg PO HS 01/04/21 12/24/22 Atorvastatin [Lipitor] 40 mg PO HS 07/20/21 12/24/22 DULoxetine HCL [Cymbalta] 60 mg PO HS 07/20/21 12/24/22 Atogepant [Qulipta] 60 mg PO HS 06/03/22 12/24/22 Cyclobenzaprine [Flexeril] 10 mg PO TID PRN 06/03/22 12/24/22 HYDROcodone/APAP 10-325MG [[place] 1 tab PO TID PRN 06/03/22 12/24/22 10-325] Albuterol Inhaler [Ventolin Hfa 2 puff INHALATION RT-QID PRN 08/29/22 12/24/22 Inhaler] Aspirin 81 mg PO HS 08/29/22 12/24/22 Clopidogrel [Plavix] 75 mg PO HS 08/29/22 12/24/22 Famotidine [Pepcid] 20 mg PO HS 08/29/22 12/24/22 Hyoscyamine Sulfate [Levsin-Sl] 0.125 mg SL Q4H PRN 08/29/22 12/24/22 Vitamin B-12 (Unknown Dose) 1 tab PO HS 09/11/22 12/24/22 Lacosamide [Vimpat] 100 mg PO HS 11/07/22 12/24/22 Naloxone HCl [Narcan] 4 mg NASAL ONCE PRN 11/07/22 12/24/22 Nitroglycerin Sl Tabs [Nitrostat] 0.4 mg SL Q5M PRN 11/18/22 12/24/22 Losartan [Cozaar] 50 mg PO HS 12/20/22 12/24/22 hydroCHLOROthiazide 12.5 mg PO HS 12/20/22 12/24/22 Previous Rx's Medication Instructions Recorded Ondansetron Odt [Zofran ODT] 4 mg PO Q8HR PRN #9 tab 06/26/22 Allergies Allergy/AdvReac Type Severity Reaction Status Date / Time dihydroergotamine Allergy Unknown Unknown Verified 03/16/23 23:58 [From Migranal] buprenorphine Allergy Rash/Hives Verified 03/16/23 23:58 gabapentin [From Neurontin] Allergy Itching/Swe Verified 03/16/23 23:58 lling latex Allergy Anaphylaxis Verified 03/16/23 23:58 naproxen [From Naprosyn] Allergy Anaphylaxis Verified 03/16/23 23:58 Penicillins Allergy Anaphylaxis Verified 03/16/23 23:58 prednisone Allergy Swelling Verified 03/16/23 23:58 quetiapine fumarate Allergy Itching, Verified 03/16/23 23:58 [From Seroquel] leg cramps rofecoxib [From Vioxx] Allergy Itching, Verified 03/16/23 23:58 leg cramps terfenadine [From Seldane] Allergy Rash/Hives Verified 03/16/23 23:58 vancomycin Allergy Rash/Hives/Swelling Verified 03/16/23 23:58 @IV site calcium carbonate [From DHEA] AdvReac Chest Pain Verified 03/16/23 23:58 calcium phosphate,dibasic AdvReac Chest Pain Verified 03/16/23 23:58 [From DHEA] clindamycin AdvReac muscle Verified 03/16/23 23:58 cramps clonidine AdvReac fast Verified 03/16/23 23:58 heartbeat, migraine dextromethorphan HBr AdvReac face/neck Verified 03/16/23 23:58 [From NyQuil] flushing diazepam [From Valium] AdvReac Nausea & Verified 03/16/23 23:58 Vomiting divalproex sodium AdvReac Nausea & Verified 03/16/23 23:58 [From Depakote] Vomiting doxylamine [From NyQuil] AdvReac face "beet Verified 03/16/23 23:58 red", elevated temp. ibuprofen [From Motrin] AdvReac abdominal Verified 03/16/23 23:58 & muscle cramps indomethacin [From Indocin] AdvReac Abdominal Verified 03/16/23 23:58 Pain,N/V ketorolac tromethamine AdvReac "built up Verified 03/16/23 23:58 [From Toradol] in system", had to be given something to reverse lorazepam [From Ativan] AdvReac Nausea & Verified 03/16/23 23:58 Vomiting memantine [From Namenda] AdvReac Itching Verified 03/16/23 23:58 metoclopramide HCl AdvReac muscle Verified 03/16/23 23:58 [From Reglan] cramps nortriptyline [From Pamelor] AdvReac Chest Pain Verified 03/16/23 23:58 prasterone (DHEA) [From DHEA] AdvReac Chest Pain Verified 03/16/23 23:58 prochlorperazine AdvReac leg Verified 03/16/23 23:58 [From Compazine] cramping propranolol AdvReac Chest Pain Verified 03/16/23 23:58 pseudoephedrine HCl AdvReac face "beet Verified 03/16/23 23:58 [From NyQuil] red", elevated temp. quetiapine [From Seroquel] AdvReac leg Verified 03/16/23 23:58 cramping sumatriptan [From Imitrex] AdvReac migrane Verified 03/16/23 23:58 sumatriptan succinate AdvReac migrane Verified 03/16/23 23:58 [From Imitrex] topiramate [From Topamax] AdvReac "built up Verified 03/16/23 23:58 in system", had to be given something to reverse tramadol AdvReac Nausea & Verified 03/16/23 23:58 Vomiting/LEG CRAMPS/HEART FLUTTERS trazodone AdvReac "built up Verified 03/16/23 23:58 in system", had to be given something to reverse zolpidem tartrate AdvReac "Became Verified 03/16/23 23:58 [From Ambien] violent with no memory" zonisamide [From Zonegran] AdvReac inability Verified 03/16/23 23:58 to eat artificial sweetener AdvReac SEVERE Uncoded 03/16/23 23:58 MIGRAINE HEADACHE prosyn AdvReac Itching Uncoded 03/16/23 23:58 Review of Systems ROS Statement: Those systems with pertinent positive or pertinent negative responses have been documented in the HPI. ROS Other: All systems not noted in ROS Statement are negative. Past Medical History Past Medical History: Hyperlipidemia, Hypertension, Seizure Disorder Additional Past Medical History / Comment(s): Migraines, viral meningitis x3 as a child, 1995, 2000, chronic back pain, nerve blocks 08/2016 and 12/2016. Last seizure 10/10/2020, "ABSENT SEIZURES. HX TACHYCARDIA, GBS/CIPD, PTSD. History of Any Multi-Drug Resistant Organisms: None Reported Past Surgical History: Appendectomy, Section, Cholecystectomy, Heart Catheterization, Heart Catheterization With Stent, Hernia Repair, Hysterectomy, Orthopedic Surgery, Tonsillectomy, Tubal Ligation Additional Past Surgical History / Comment(s): Hiatal Hernia, umbilical hernia repair, left rotator cuff repair, bilateral knee scopes, pain clinic procedures- occipital nerve block. abd exploratory sx(endometreosis), 3 abd scopes 1981, 1989, 1991), lumbar puncture. EGD. nerve biopsy, salvalry gland biospy Past Anesthesia/Blood Transfusion Reactions: No Reported Reaction Additional Past Anesthesia/Blood Transfusion Reaction / Comment(s): Claustrophobic Date of Last Stent Placement:: 06/03/2022 Past Psychological History: Anxiety, Bipolar, Panic Disorder, PTSD Smoking Status: Former smoker Past Alcohol Use History: None Reported Past Drug Use History: None Reported - Past Family History Mother Family Medical History: Cancer, Dementia, Diabetes Mellitus, GERD/Reflux, Hyperlipidemia, Hypertension, Thyroid Disorder Additional Family Medical History / Comment(s): CABG Father History Unknown: Yes Family Medical History: No Reported History General Exam Limitations: no limitations General appearance: alert, in no apparent distress, anxious Head exam: Present: atraumatic, normocephalic, normal inspection Eye exam: Present: normal appearance, PERRL, EOMI. Absent: scleral icterus, conjunctival injection, periorbital swelling ENT exam: Present: normal exam, mucous membranes moist Neck exam: Present: normal inspection. Absent: tenderness, meningismus, lymphadenopathy Respiratory exam: Present: normal lung sounds bilaterally. Absent: respiratory distress, wheezes, rales, rhonchi, stridor Cardiovascular Exam: Present: normal rhythm, tachycardia, normal heart sounds. Absent: systolic murmur, diastolic murmur, rubs, gallop, clicks GI/Abdominal exam: Present: soft, normal bowel sounds. Absent: distended, tenderness, guarding, rebound, rigid Extremities exam: Present: normal inspection, full ROM, normal capillary refill. Absent: tenderness, pedal edema, joint swelling, calf tenderness Back exam: Present: normal inspection Neurological exam: Present: alert, oriented X3, CN II-XII intact Psychiatric exam: Present: normal affect, normal mood Skin exam: Present: warm, dry, intact, normal color. Absent: rash Course Vital Signs 03/14/23 00:08 Temperature 98 F Pulse Rate 114 H Respiratory 20 Rate Blood Pressure 178/105 O2 Sat by Pulse 100 Oximetry - Reevaluation(s) Reevaluation #1: 03/14/23 07:01 Medical record is reviewed Reevaluation #2: 03/14/23 07:01 Patient symptoms are improved Reevaluation #3: 03/14/23 07:01 Patient informed results and questions answered Reevaluation #4: 03/14/23 07:01 Was pt. sent in by a medical professional or institution (SHANTHI Silver, BOWLING FLOOR MANAGER, urgent care, hospital, or usp...) When possible be specific @ -no Did you speak to anyone other than the patient for history (EMS, parent, family, police, friend...)? What history was obtained from this source @ -no Did you review nursing and triage notes (agree or disagree)? Why? @ -agree Are old charts reviewed (outside hosp., previous admission, EMS record, old EKG, old radiological studies, urgent care reports/EKG's, usp records)? Report findings @ -yes Differential Diagnosis (chest pain, altered mental status, abdominal pain women, abdominal pain men, vaginal bleeding, weakness, fever, dyspnea, syncope, headache, dizziness, GI bleed, back pain, seizure, CVA, palpatations, mental health, musculoskeletal)? @ -prior EKG interpreted by me (3pts min.). @ -no X-rays interpreted by me (1pt min.). @ -no CT interpreted by me (1pt min.). @ -no U/S interpreted by me (1pt. min.). @ -no What testing was considered but not performed or refused? (CT, X-rays, U/S, labs)? Why? @ -none What meds were considered but not given or refused? Why? @ -none Did you discuss the management of the patient with other professionals (samantha nichols i.e. , PA, BOWLING FLOOR MANAGER, lab, RT, psych nurse, 7th grade social studies teacher, lubrication technician, teacher, special officer, bilingual case manager)? Give summary @ -no Was smoking cessation discussed for >3mins.? @ -no Was critical care preformed (if so, how long)? @ -no Were there social determinants of health that impacted care today? How? (Homelessness, low income, unemployed, alcoholism, drug addiction, transportation, low edu. Level, literacy, decrease access to med. care, half-way, rehab)? @ -none Was there de-escalation of care discussed even if they declined (Discuss DNR or withdrawal of care, Hospice)? DNR status @ -no What co-morbidities impacted this encounter? (DM, HTN, Smoking, COPD, CAD, Cancer, CVA, ARF, Chemo, Hep., AIDS, mental health diagnosis, sleep apnea, morbid obesity)? @ -none Was patient admitted / discharged? Hospital course, mention meds given and route, prescriptions, significant lab abnormalities, going to OR and other pertinent info. @ - 53 Female to the emergency department with migraine headache recurrent migraine here in the ER. Patient has adequate headache and pain control here in the ER can be discharged home Undiagnosed new problem with uncertain prognosis? @ -no Drug Therapy requiring intensive monitoring for toxicity (Heparin, Nitro, Insulin, Cardizem)? @ -no Were any procedures done? @ -no Diagnosis/symptom? @ -Headache, migraine headache Acute, or Chronic, or Acute on Chronic? @ -Acute Uncomplicated (without systemic symptoms) or Complicated (systemic symptoms)? @ -Complicated Side effects of treatment? @ -no Exacerbation, Progression, or Severe Exacerbation? @ -exacerbation Poses a threat to life or bodily function? How? (Chest pain, USA, ID, pneumonia, PE, COPD, DKA, ARF, appy, cholecystitis, CVA, Diverticulitis, Homicidal, Suicidal, threat to staff... and all critical care pts) @ -no Reevaluation #5: 03/14/23 07:01 Differential Headache: Migraine, tension, cluster, carbon monoxide, central venous thrombosis, pension karma temporal arteritis, acute closure glaucoma, intercranial hemorrhage, mastoiditis, sinusitis, head injury, this is not meant to be an all-inclusive list. Medical Decision Making - Medical Decision Making 53 Female to the emergency department with migraine headache recurrent migraine here in the ER. Patient has adequate headache and pain control here in the ER can be discharged home Disposition Clinical Impression: Migraine, Headache Disposition: HOME SELF-CARE Condition: Good Instructions (If sedation given, give patient instructions): Acute Headache (ED) Is patient prescribed a controlled substance at d/c from ED?: No Referrals: José Reece MD [Primary Care Provider] - 1-2 days Time of Disposition: 01:00
[2023-03-14] MEDS ORDERED: PROCHLORPERAZINE 10 MG TAB PO ONE (02:00)
[2023-03-14] MEDS ORDERED: ONDANSETRON ODT 4 MG TAB PO STA (02:05)
== END 2023-03-14 02:19 | disposition home or self-care (01) ==
LOC: EC 00:03
DX: G43.909 Migraine, unspecified, not intractable, without status migrainosus (principal); I10 Essential (primary) hypertension; E78.5 Hyperlipidemia, unspecified; F31.9 Bipolar disorder, unspecified; F41.9 Anxiety disorder, unspecified; Z79.02 Long term (current) use of antithrombotics/antiplatelets; Z79.899 Other long term (current) drug therapy; Z87.891 Personal history of nicotine dependence; Z88.0 Allergy status to penicillin; Z88.1 Allergy status to other antibiotic agents; Z88.2 Allergy status to sulfonamides; Z88.5 Allergy status to narcotic agent; Z88.6 Allergy status to analgesic agent; Z88.8 Allergy status to other drugs, medicaments and biological substances; Z91.040 Latex allergy status; Z91.018 Allergy to other foods
CPT/HCPCS: 99283; 96372; J1170

== ENCOUNTER 2023-03-16 23:51 | Emergency (ER) | payer OTHER ==
[2023-03-17] MEDS ORDERED: HYDROmorphone 1 MG/ML 1 ML SYRINGE IVP STA (00:52)
[2023-03-17 01:12] LABS: Basophils # (A) 0.1 k/uL (0-0.2); Basophils % (A) 1 %; Eosinophils % (A) 0 %; HCT 39.7 % (34.0-46.0); HGB 13.1 gm/dL (11.4-16.0); Lymphocytes # (A) 1.8 k/uL (1.0-4.8); Lymphocytes % (A) 19 %; MCH 31.2 pg (25.0-35.0); MCHC 33.1 g/dL (31.0-37.0); MCV 94.3 fL (80.0-100.0); Mean Platelet Volume 8.8; Monocytes # (A) 0.5 k/uL (0-1.0); Monocytes % (A) 6 %; Neutrophils % (A) 73 %; Platelet Count 281 k/uL (150-450); RDW 14.7 % (11.5-15.5); WBC 9.6 k/uL (3.8-10.6)
[2023-03-17 01:21] LABS: Partial Thromboplastin Time 50.6 sec (22.0-30.0); Prothrombin Time 10.9 sec (10.0-12.5)
[2023-03-17 01:32] VITALS: RESP 18
[2023-03-17 01:45] LABS: ALT 20 U/L (4-34); AST 25 U/L (14-36); African American GFR (CKD) >90 (>60 ml/min/1.73 sqM); Albumin 3.7 g/dL (3.5-5.0); Alkaline Phosphatase 123 U/L (38-126); Anion Gap 11 mmol/L; Blood Urea Nitrogen 10 mg/dL (7-17); Calcium 8.8 mg/dL (8.4-10.2); Carbon Dioxide 27 mmol/L (22-30); Chloride 103 mmol/L (98-107); Glucose 123 mg/dL (74-99); Non-African American GFR(CKD) 90 (>60 ml/min/1.73 sqM); Sodium 141 mmol/L (137-145); Total Bilirubin 0.4 mg/dL (0.2-1.3); Total Protein 6.3 g/dL (6.3-8.2)
--- NOTE | 2023-03-17 02:27 | CT ---
EXAM: CT Head Without Intravenous Contrast CLINICAL HISTORY: ITS.REASON CT Reason: galan TECHNIQUE: Axial computed tomography images of the head/brain without intravenous contrast. CTDI is 48.8 mGy and DLP is 1084 mGy-cm. This CT exam was performed using one or more of the following dose reduction techniques: automated exposure control, adjustment of the mA and/or kV according to patient size, and/or use of iterative reconstruction technique. COMPARISON: No relevant prior studies available. FINDINGS: Brain: No hemorrhage or mass effect. Ventricles: No hydrocephalus. Bones/joints: Unremarkable. Soft tissues: Unremarkable. Sinuses: No air fluid level. Mastoid air cells: Clear. IMPRESSION: No acute hemorrhage, hydrocephalus, or mass effect.
--- NOTE | 2023-03-17 03:31 | CT ---
EXAM: CT Angiography Head With Intravenous Contrast CLINICAL HISTORY: ITS.REASON CT Reason: YAO, neck pain, vision changes TECHNIQUE: Axial computed tomographic angiography images of the head with intravenous contrast. CTDI is 48.8 mGy and DLP is 1084 mGy-cm. This CT exam was performed using one or more of the following dose reduction techniques: automated exposure control, adjustment of the mA and/or kV according to patient size, and/or use of iterative reconstruction technique. MIP reconstructed images were created and reviewed. COMPARISON: No relevant prior studies available. FINDINGS: Right internal carotid artery: Intracranial segment is patent with no significant stenosis. No aneurysm. Right anterior cerebral artery: No occlusion or significant stenosis. No aneurysm. Right middle cerebral artery: No occlusion or significant stenosis. No aneurysm. Right posterior cerebral artery: No occlusion or significant stenosis. No aneurysm. Right vertebral artery: Unremarkable. Left internal carotid artery: Intracranial segment is patent with no significant stenosis. No aneurysm. Left anterior cerebral artery: No occlusion or significant stenosis. No aneurysm. Left middle cerebral artery: No occlusion or significant stenosis. No aneurysm. Left posterior cerebral artery: No occlusion or significant stenosis. No aneurysm. Left vertebral artery: Unremarkable. Basilar artery: No occlusion or significant stenosis. No aneurysm. IMPRESSION: No significant stenosis. EXAM: CT Angiography Neck With Intravenous Contrast CLINICAL HISTORY: ITS.REASON CT Reason: YAO, neck pain, vision changes TECHNIQUE: Axial computed tomographic angiography images of the neck with intravenous contrast. CTDI is 23.5 mGy and DLP is 538.4 mGy-cm. This CT exam was performed using one or more of the following dose reduction techniques: automated exposure control, adjustment of the mA and/or kV according to patient size, and/or use of iterative reconstruction technique. MIP reconstructed images were created and reviewed. COMPARISON: No relevant prior studies available. FINDINGS: VASCULATURE: Right common carotid artery: No significant stenosis. No dissection. Right internal carotid artery: Mild focal irregularity of the right proximal ICA, possibly carotid webbing. No dissection. Right vertebral artery: No significant stenosis. No dissection. Left common carotid artery: No significant stenosis. No dissection. Left internal carotid artery: Extracranial has no significant stenosis. No dissection. Left vertebral artery: No significant stenosis. No dissection. NECK: Bones/joints: No acute fracture. No dislocation. Patulous esophagus with reflux of fluid. CAROTID STENOSIS REFERENCE USING NASCET CRITERIA: % ICA stenosis = (1 - narrowest ICA diameter/diameter of distal cervical ICA) x 100. Mild - <50% stenosis. Moderate - 50-69% stenosis. Severe - 70-94% stenosis. Near occlusion - 95-99% stenosis. Occluded - 100% stenosis. IMPRESSION: Mild focal irregularity of the right proximal ICA, possibly carotid webbing. Patulous esophagus with reflux of fluid.
--- NOTE | 2023-03-17 04:02 | ED ---
General Adult HPI - General Chief complaint: Headache Stated complaint: hypertension/headache Time Seen by Provider: 03/17/23 00:03 Source: EMS Mode of arrival: EMS - History of Present Illness Initial comments: 53-year-old female well known to our department with past medical history significant for migraines presenting to the ED with the chief complaint of headache. Patient states today woke up with usual symptoms of migraine however noted that when she sat up she heard a "pop in her neck" urine now reports some neck pain in addition to her headache. Also notes some intermittent blurred vision with this. No chest pain or shortness breath. No other complaints. - Related Data Home Medications Medication Instructions Recorded Confirmed Omeprazole [PriLOSEC] 20 mg PO HS 12/15/20 12/24/22 Thiamine [Vitamin B-1] 100 mg PO HS 01/04/21 12/24/22 Atorvastatin [Lipitor] 40 mg PO HS 07/20/21 12/24/22 DULoxetine HCL [Cymbalta] 60 mg PO HS 07/20/21 12/24/22 Atogepant [Qulipta] 60 mg PO HS 06/03/22 12/24/22 Cyclobenzaprine [Flexeril] 10 mg PO TID PRN 06/03/22 12/24/22 HYDROcodone/APAP 10-325MG [[place] 1 tab PO TID PRN 06/03/22 12/24/22 10-325] Albuterol Inhaler [Ventolin Hfa 2 puff INHALATION RT-QID PRN 08/29/22 12/24/22 Inhaler] Aspirin 81 mg PO HS 08/29/22 12/24/22 Clopidogrel [Plavix] 75 mg PO HS 08/29/22 12/24/22 Famotidine [Pepcid] 20 mg PO HS 08/29/22 12/24/22 Hyoscyamine Sulfate [Levsin-Sl] 0.125 mg SL Q4H PRN 08/29/22 12/24/22 Vitamin B-12 (Unknown Dose) 1 tab PO HS 09/11/22 12/24/22 Lacosamide [Vimpat] 100 mg PO HS 11/07/22 12/24/22 Naloxone HCl [Narcan] 4 mg NASAL ONCE PRN 11/07/22 12/24/22 Nitroglycerin Sl Tabs [Nitrostat] 0.4 mg SL Q5M PRN 11/18/22 12/24/22 Losartan [Cozaar] 50 mg PO HS 12/20/22 12/24/22 hydroCHLOROthiazide 12.5 mg PO HS 12/20/22 12/24/22 Previous Rx's Medication Instructions Recorded Ondansetron Odt [Zofran ODT] 4 mg PO Q8HR PRN #9 tab 06/26/22 Allergies Allergy/AdvReac Type Severity Reaction Status Date / Time dihydroergotamine Allergy Unknown Unknown Verified 03/16/23 23:58 [From Migranal] buprenorphine Allergy Rash/Hives Verified 03/16/23 23:58 gabapentin [From Neurontin] Allergy Itching/Swe Verified 03/16/23 23:58 lling latex Allergy Anaphylaxis Verified 03/16/23 23:58 naproxen [From Naprosyn] Allergy Anaphylaxis Verified 03/16/23 23:58 Penicillins Allergy Anaphylaxis Verified 03/16/23 23:58 prednisone Allergy Swelling Verified 03/16/23 23:58 quetiapine fumarate Allergy Itching, Verified 03/16/23 23:58 [From Seroquel] leg cramps rofecoxib [From Vioxx] Allergy Itching, Verified 03/16/23 23:58 leg cramps terfenadine [From Seldane] Allergy Rash/Hives Verified 03/16/23 23:58 vancomycin Allergy Rash/Hives/Swelling Verified 03/16/23 23:58 @IV site calcium carbonate [From DHEA] AdvReac Chest Pain Verified 03/16/23 23:58 calcium phosphate,dibasic AdvReac Chest Pain Verified 03/16/23 23:58 [From DHEA] clindamycin AdvReac muscle Verified 03/16/23 23:58 cramps clonidine AdvReac fast Verified 03/16/23 23:58 heartbeat, migraine dextromethorphan HBr AdvReac face/neck Verified 03/16/23 23:58 [From NyQuil] flushing diazepam [From Valium] AdvReac Nausea & Verified 03/16/23 23:58 Vomiting divalproex sodium AdvReac Nausea & Verified 03/16/23 23:58 [From Depakote] Vomiting doxylamine [From NyQuil] AdvReac face "beet Verified 03/16/23 23:58 red", elevated temp. ibuprofen [From Motrin] AdvReac abdominal Verified 03/16/23 23:58 & muscle cramps indomethacin [From Indocin] AdvReac Abdominal Verified 03/16/23 23:58 Pain,N/V ketorolac tromethamine AdvReac "built up Verified 03/16/23 23:58 [From Toradol] in system", had to be given something to reverse lorazepam [From Ativan] AdvReac Nausea & Verified 03/16/23 23:58 Vomiting memantine [From Namenda] AdvReac Itching Verified 03/16/23 23:58 metoclopramide HCl AdvReac muscle Verified 03/16/23 23:58 [From Reglan] cramps nortriptyline [From Pamelor] AdvReac Chest Pain Verified 03/16/23 23:58 prasterone (DHEA) [From DHEA] AdvReac Chest Pain Verified 03/16/23 23:58 prochlorperazine AdvReac leg Verified 03/16/23 23:58 [From Compazine] cramping propranolol AdvReac Chest Pain Verified 03/16/23 23:58 pseudoephedrine HCl AdvReac face "beet Verified 03/16/23 23:58 [From NyQuil] red", elevated temp. quetiapine [From Seroquel] AdvReac leg Verified 03/16/23 23:58 cramping sumatriptan [From Imitrex] AdvReac migrane Verified 03/16/23 23:58 sumatriptan succinate AdvReac migrane Verified 03/16/23 23:58 [From Imitrex] topiramate [From Topamax] AdvReac "built up Verified 03/16/23 23:58 in system", had to be given something to reverse tramadol AdvReac Nausea & Verified 03/16/23 23:58 Vomiting/LEG CRAMPS/HEART FLUTTERS trazodone AdvReac "built up Verified 03/16/23 23:58 in system", had to be given something to reverse zolpidem tartrate AdvReac "Became Verified 03/16/23 23:58 [From Ambien] violent with no memory" zonisamide [From Zonegran] AdvReac inability Verified 03/16/23 23:58 to eat artificial sweetener AdvReac SEVERE Uncoded 03/16/23 23:58 MIGRAINE HEADACHE prosyn AdvReac Itching Uncoded 03/16/23 23:58 Review of Systems ROS Statement: Those systems with pertinent positive or pertinent negative responses have been documented in the HPI. ROS Other: All systems not noted in ROS Statement are negative. Past Medical History Past Medical History: Hyperlipidemia, Hypertension, Seizure Disorder Additional Past Medical History / Comment(s): Migraines, viral meningitis x3 as a child, 1995, 2000, chronic back pain, nerve blocks 08/2016 and 12/2016. Last seizure 10/10/2020, "ABSENT SEIZURES. HX TACHYCARDIA, GBS/CIPD, PTSD. History of Any Multi-Drug Resistant Organisms: None Reported Past Surgical History: Appendectomy, Section, Cholecystectomy, Heart Catheterization, Heart Catheterization With Stent, Hernia Repair, Hysterectomy, Orthopedic Surgery, Tonsillectomy, Tubal Ligation Additional Past Surgical History / Comment(s): Hiatal Hernia, umbilical hernia repair, left rotator cuff repair, bilateral knee scopes, pain clinic procedures- occipital nerve block. abd exploratory sx(endometreosis), 3 abd scopes 1981, 1989, 1991), lumbar puncture. EGD. nerve biopsy, salvalry gland biospy Past Anesthesia/Blood Transfusion Reactions: No Reported Reaction Additional Past Anesthesia/Blood Transfusion Reaction / Comment(s): Claustrophobic Date of Last Stent Placement:: 06/03/2022 Past Psychological History: Anxiety, Bipolar, Panic Disorder, PTSD Smoking Status: Former smoker Past Alcohol Use History: None Reported Past Drug Use History: None Reported - Past Family History Mother Family Medical History: Cancer, Dementia, Diabetes Mellitus, GERD/Reflux, Hyperlipidemia, Hypertension, Thyroid Disorder Additional Family Medical History / Comment(s): CABG Father History Unknown: Yes Family Medical History: No Reported History General Exam General appearance: alert, in no apparent distress Eye exam: Present: normal appearance Neck exam: Present: normal inspection Respiratory exam: Present: normal lung sounds bilaterally Cardiovascular Exam: Present: tachycardia GI/Abdominal exam: Present: soft Neurological exam: Present: alert, oriented X3 Skin exam: Present: warm, dry Course Vital Signs 03/16/23 03/17/23 23:55 00:58 Temperature 99.0 F Pulse Rate 126 H 106 H Respiratory 20 18 Rate Blood Pressure 155/131 152/117 O2 Sat by Pulse 98 94 L Oximetry Medical Decision Making - Medical Decision Making Was pt. sent in by a medical professional or institution ([facility]ANTHI Silver, PIPE CLEANER, urgent care, hospital, or usp...) When possible be specific @ -No Did you speak to anyone other than the patient for history (EMS, parent, family, police, friend...)? What history was obtained from this source @ -No Did you review nursing and triage notes (agree or disagree)? Why? @ -I reviewed and agree with nursing and triage notes Were old charts reviewed (outside hosp., previous admission, EMS record, old EKG, old radiological studies, urgent care reports/EKG's, usp records)? Report findings @ -No old charts were reviewed Differential Diagnosis (chest pain, altered mental status, abdominal pain women, abdominal pain men, vaginal bleeding, weakness, fever, dyspnea, syncope, headache, dizziness, GI bleed, back pain, seizure, CVA, palpatations, mental health, musculoskeletal)? @ -Differential Headache: Migraine, tension, cluster, carbon monoxide, central venous thrombosis, pension karma temporal arteritis, acute closure glaucoma, intercranial hemorrhage, mastoiditis, sinusitis, head injury, this is not meant to be an all-inclusive list. EKG interpreted by me (3pts min.). @ -As above X-rays interpreted by me (1pt min.). @ -None done CT interpreted by me (1pt min.). @ -CT of the brain interpreted by me showing no acute finding. CT angiogram of head and neck interpreted by me showing no acute findings but did show possible lab of the right ICA. U/S interpreted by me (1pt. min.). @ -None done What testing was considered but not performed or refused? (CT, X-rays, U/S, labs)? Why? @ -None What meds were considered but not given or refused? Why? @ -None Did you discuss the management of the patient with other professionals (professionals i.e. SHANTHI Silver, PIPE CLEANER, lab, RT, psych nurse, social worker health services, guest experience manager, teacher, special technical operations officer, counter caser)? Give summary @ -No Was smoking cessation discussed for >3mins.? @ -No Was critical care preformed (if so, how long)? @ -No Were there social determinants of health that impacted care today? How? (Homelessness, low income, unemployed, alcoholism, drug addiction, transportation, low edu. Level, literacy, decrease access to med. care, shelter, rehab)? @ -No Was there de-escalation of care discussed even if they declined (Discuss DNR or withdrawal of care, Hospice)? DNR status @ -No What co-morbidities impacted this encounter? (DM, HTN, Smoking, COPD, CAD, Cancer, CVA, ARF, Chemo, Hep., AIDS, mental health diagnosis, sleep apnea, morbid obesity)? @ -None Was patient admitted / discharged? Hospital course, mention meds given and route, prescriptions, significant lab abnormalities, going to OR and other pertinent info. @ -Discharge 53-year-old female presenting to the ED with complaints of headache, neck pain, blurred vision. Patient had CT of the brain and CT angiogram of the head and neck that revealed no acute findings. Patient discharged home in stable condition with instructions to follow up with her primary care provider. Discharged home in stable condition. Discussed return precautions with patient who verbalizes agreement. Undiagnosed new problem with uncertain prognosis? @ -No Drug Therapy requiring intensive monitoring for toxicity (Heparin, Nitro, Insulin, Cardizem)? @ -No Were any procedures done? @ -No Diagnosis/symptom? @ -Headache Acute, or Chronic, or Acute on Chronic? @ -Acute Uncomplicated (without systemic symptoms) or Complicated (systemic symptoms)? @ -Uncomplicated Side effects of treatment? @ -No Exacerbation, Progression, or Severe Exacerbation? @ -No Poses a threat to life or bodily function? How? (Chest pain, [place], [place], pneumonia, PE, COPD, DKA, ARF, appy, cholecystitis, CVA, Diverticulitis, Homicidal, Suicid al, threat to staff... and all critical care pts) @ -No - Lab Data Result diagrams: 03/17/23 00:55 03/17/23 00:55 Lab Results 03/17/23 03/17/23 03/17/23 Range/Units 00:55 00:55 00:55 WBC 9.6 (3.8-10.6) k/uL RBC 4.20 (3.80-5.40) m/uL Hgb 13.1 (11.4-16.0) gm/dL Hct 39.7 (34.0-46.0) % MCV 94.3 (80.0-100.0) fL MCH 31.2 (25.0-35.0) pg MCHC 33.1 (31.0-37.0) g/dL RDW 14.7 (11.5-15.5) % Plt Count 281 (150-450) k/uL MPV 8.8 Neutrophils % 73 % Lymphocytes % 19 % Monocytes % 6 % Eosinophils % 0 % Basophils % 1 % Neutrophils # 7.0 (1.3-7.7) k/uL Lymphocytes # 1.8 (1.0-4.8) k/uL Monocytes # 0.5 (0-1.0) k/uL Eosinophils # 0.0 (0-0.7) k/uL Basophils # 0.1 (0-0.2) k/uL PT 10.9 (10.0-12.5) sec INR 1.0 (<1.2) APTT 50.6 H (22.0-30.0) sec Sodium 141 (137-145) mmol/L Potassium 3.0 L (3.5-5.1) mmol/L Chloride 103 (98-107) mmol/L Carbon Dioxide 27 (22-30) mmol/L Anion Gap 11 mmol/L BUN 10 (7-17) mg/dL Creatinine 0.77 (0.52-1.04) mg/dL Est GFR (CKD-EPI)AfAm >90 (>60 ml/min/1.73 sqM) Est GFR (CKD-EPI)NonAf 90 (>60 ml/min/1.73 sqM) Glucose 123 H (74-99) mg/dL Calcium 8.8 (8.4-10.2) mg/dL Total Bilirubin 0.4 (0.2-1.3) mg/dL AST 25 (14-36) U/L ALT 20 (4-34) U/L Alkaline Phosphatase 123 (38-126) U/L Total Protein 6.3 (6.3-8.2) g/dL Albumin 3.7 (3.5-5.0) g/dL Disposition Clinical Impression: Migraine Disposition: HOME SELF-CARE Condition: Good Additional Instructions: Please return to the Emergency Department if symptoms worsen or any other concerns. Please follow-up with your primary care provider on incidental CT finding. Is patient prescribed a controlled substance at d/c from ED?: No Referrals: José Reece MD [Primary Care Provider] - 1-2 days Time of Disposition: 04:06
[2023-03-17] MEDS ORDERED: diphenhydrAMINE 50 MG/ML 1 ML VIAL IVP STA (04:06)
[2023-03-17] MEDS ORDERED: ACETAMINOPHEN TAB 500 MG TAB PO STA (04:06)
[2023-03-17 06:28] VITALS: BP 154/97; PULSE 98; TEMP 98.5
== END 2023-03-17 05:19 | disposition home or self-care (01) ==
LOC: EC 23:51
DX: G43.909 Migraine, unspecified, not intractable, without status migrainosus (principal); E78.5 Hyperlipidemia, unspecified; I10 Essential (primary) hypertension; F41.9 Anxiety disorder, unspecified; F31.9 Bipolar disorder, unspecified; Z87.891 Personal history of nicotine dependence; Z88.0 Allergy status to penicillin; Z88.1 Allergy status to other antibiotic agents; Z91.040 Latex allergy status; Z88.8 Allergy status to other drugs, medicaments and biological substances; Z88.5 Allergy status to narcotic agent; Z79.82 Long term (current) use of aspirin; Z79.899 Other long term (current) drug therapy
CPT/HCPCS: 36415; 80053; 85025; 85610; 85730; 70496; 70450; 70498; 99285; 96374; 96375 ×2; J1200; J1170; J1642; Q9967

== ENCOUNTER 2023-04-13 20:28 | Emergency (ER) | payer OTHER ==
[2023-04-13] MEDS ORDERED: SODIUM CHLORIDE 0.9% 1,000 ML IV STA (20:47)
[2023-04-13] MEDS ORDERED: diphenhydrAMINE 50 MG/ML 1 ML VIAL IVP STA (20:48)
[2023-04-13] MEDS ORDERED: ONDANSETRON 4 MG/2 ML VIAL IVP STA (20:48)
[2023-04-13] MEDS ORDERED: HYDROmorphone 1 MG/ML 1 ML SYRINGE IVP STA (20:48)
[2023-04-13 21:13] VITALS: RESP 18
--- NOTE | 2023-04-13 21:33 | CT ---
EXAMINATION TYPE: CT brain wo con DATE OF EXAM: 04/13/2023 COMPARISON: 03/17/2023 HISTORY: 53-year-old female headache TECHNIQUE: Examination was done in axial plane without intravenous contrast. Coronal and sagittal r econstructions performed. CT DLP: 1120.4 mGycm Automated exposure control for dose reduction was used. FINDINGS: There is no evidence of acute intracranial hemorrhage, acute ischemic changes, mass, mass-effect, or extra-axial fluid collection. There is no effacement of cerebral sulci or basal subarachnoid cister ns. There is no hydrocephalus. There is no midline shift. Johnson-white matter distinction is preserv ed. Partially empty sella. Leftward nasal septal deviation. Paranasal sinuses and mastoid air cells well pneumatized. Orbits and globes are intact. Slightly prominent fluid along the optic nerve sheaths. IMPRESSION: 1. Partially empty sella and slightly prominent fluid along the optic nerve sheaths. Given patient's headaches, correlate clinically and with funduscopic exam to exclude any papilledema or possibility o f pseudotumor cerebri. 2. Otherwise, no acute intracranial abnormality seen.
[2023-04-13] MEDS ORDERED: LORazepam 2 MG/ML INJ IV STA (23:44)
--- NOTE | 2023-04-13 23:47 | ED ---
Headache HPI - General Chief Complaint: Headache Stated Complaint: Headache Time Seen by Provider: 04/13/23 20:42 Mode of arrival: ambulatory Limitations: no limitations - History of Present Illness Initial Comments: 53-year-old female presenting with chief complaint of headache. Patient has history of migraines and is well-known to our ER. She states that this headache started yesterday. She states it felt like something popped in her head. She states that she was unable to control her extremities for 10 minutes which has since completely resolved and she is back to her baseline. She tried taking her home medications which did not alleviate her pain. She admits to light sensitivity, nausea. Denies fever, cough, congestion, sore throat, chest pain, shortness of breath, abdominal pain. - Related Data Home Medications Medication Instructions Recorded Confirmed Omeprazole [PriLOSEC] 20 mg PO HS 12/15/20 12/24/22 Thiamine [Vitamin B-1] 100 mg PO HS 01/04/21 12/24/22 Atorvastatin [Lipitor] 40 mg PO HS 07/20/21 12/24/22 DULoxetine HCL [Cymbalta] 60 mg PO HS 07/20/21 12/24/22 Atogepant [Qulipta] 60 mg PO HS 06/03/22 12/24/22 Cyclobenzaprine [Flexeril] 10 mg PO TID PRN 06/03/22 12/24/22 HYDROcodone/APAP 10-325MG [Vida 1 tab PO TID PRN 06/03/22 12/24/22 10-325] Albuterol Inhaler [Ventolin Hfa 2 puff INHALATION RT-QID PRN 08/29/22 12/24/22 Inhaler] Aspirin 81 mg PO HS 08/29/22 12/24/22 Clopidogrel [Plavix] 75 mg PO HS 08/29/22 12/24/22 Famotidine [Pepcid] 20 mg PO HS 08/29/22 12/24/22 Hyoscyamine Sulfate [Levsin-Sl] 0.125 mg SL Q4H PRN 08/29/22 12/24/22 Vitamin B-12 (Unknown Dose) 1 tab PO HS 09/11/22 12/24/22 Lacosamide [Vimpat] 100 mg PO HS 11/07/22 12/24/22 Naloxone HCl [Narcan] 4 mg NASAL ONCE PRN 11/07/22 12/24/22 Nitroglycerin Sl Tabs [Nitrostat] 0.4 mg SL Q5M PRN 11/18/22 12/24/22 Losartan [Cozaar] 50 mg PO HS 12/20/22 12/24/22 hydroCHLOROthiazide 12.5 mg PO HS 12/20/22 12/24/22 Previous Rx's Medication Instructions Recorded Ondansetron Odt [Zofran ODT] 4 mg PO Q8HR PRN #9 tab 06/26/22 Allergies Allergy/AdvReac Type Severity Reaction Status Date / Time dihydroergotamine Allergy Unknown Unknown Verified 03/16/23 23:58 [From Migranal] buprenorphine Allergy Rash/Hives Verified 03/16/23 23:58 gabapentin [From Neurontin] Allergy Itching/Swe Verified 03/16/23 23:58 lling latex Allergy Anaphylaxis Verified 03/16/23 23:58 naproxen [From Naprosyn] Allergy Anaphylaxis Verified 03/16/23 23:58 Penicillins Allergy Anaphylaxis Verified 03/16/23 23:58 prednisone Allergy Swelling Verified 03/16/23 23:58 quetiapine fumarate Allergy Itching, Verified 03/16/23 23:58 [From Seroquel] leg cramps rofecoxib [From Vioxx] Allergy Itching, Verified 03/16/23 23:58 leg cramps terfenadine [From Seldane] Allergy Rash/Hives Verified 03/16/23 23:58 vancomycin Allergy Rash/Hives/Swelling Verified 03/16/23 23:58 @IV site calcium carbonate [From DHEA] AdvReac Chest Pain Verified 03/16/23 23:58 calcium phosphate,dibasic AdvReac Chest Pain Verified 03/16/23 23:58 [From DHEA] clindamycin AdvReac muscle Verified 03/16/23 23:58 cramps clonidine AdvReac fast Verified 03/16/23 23:58 heartbeat, migraine dextromethorphan HBr AdvReac face/neck Verified 03/16/23 23:58 [From NyQuil] flushing diazepam [From Valium] AdvReac Nausea & Verified 03/16/23 23:58 Vomiting divalproex sodium AdvReac Nausea & Verified 03/16/23 23:58 [From Depakote] Vomiting doxylamine [From NyQuil] AdvReac face "beet Verified 03/16/23 23:58 red", elevated temp. ibuprofen [From Motrin] AdvReac abdominal Verified 03/16/23 23:58 & muscle cramps indomethacin [From Indocin] AdvReac Abdominal Verified 03/16/23 23:58 Pain,N/V ketorolac tromethamine AdvReac "built up Verified 03/16/23 23:58 [From Toradol] in system", had to be given something to reverse lorazepam [From Ativan] AdvReac Nausea & Verified 03/16/23 23:58 Vomiting memantine [From Namenda] AdvReac Itching Verified 03/16/23 23:58 metoclopramide HCl AdvReac muscle Verified 03/16/23 23:58 [From Reglan] cramps nortriptyline [From Pamelor] AdvReac Chest Pain Verified 03/16/23 23:58 prasterone (DHEA) [From DHEA] AdvReac Chest Pain Verified 03/16/23 23:58 prochlorperazine AdvReac leg Verified 03/16/23 23:58 [From Compazine] cramping propranolol AdvReac Chest Pain Verified 03/16/23 23:58 pseudoephedrine HCl AdvReac face "beet Verified 03/16/23 23:58 [From NyQuil] red", elevated temp. quetiapine [From Seroquel] AdvReac leg Verified 03/16/23 23:58 cramping sumatriptan [From Imitrex] AdvReac migrane Verified 03/16/23 23:58 sumatriptan succinate AdvReac migrane Verified 03/16/23 23:58 [From Imitrex] topiramate [From Topamax] AdvReac "built up Verified 03/16/23 23:58 in system", had to be given something to reverse tramadol AdvReac Nausea & Verified 03/16/23 23:58 Vomiting/LEG CRAMPS/HEART FLUTTERS trazodone AdvReac "built up Verified 03/16/23 23:58 in system", had to be given something to reverse zolpidem tartrate AdvReac "Became Verified 03/16/23 23:58 [From Ambien] violent with no memory" zonisamide [From Zonegran] AdvReac inability Verified 03/16/23 23:58 to eat artificial sweetener AdvReac SEVERE Uncoded 03/16/23 23:58 MIGRAINE HEADACHE prosyn AdvReac Itching Uncoded 03/16/23 23:58 Review of Systems ROS Statement: Those systems with pertinent positive or pertinent negative responses have been documented in the HPI. ROS Other: All systems not noted in ROS Statement are negative. Past Medical History Past Medical History: Hyperlipidemia, Hypertension, Seizure Disorder Additional Past Medical History / Comment(s): Migraines, viral meningitis x3 as a child, 1995, 2000, chronic back pain, nerve blocks 08/2016 and 12/2016. Last seizure 10/10/2020, "ABSENT SEIZURES. HX TACHYCARDIA, GBS/CIPD, PTSD. History of Any Multi-Drug Resistant Organisms: None Reported Past Surgical History: Appendectomy, Section, Cholecystectomy, Heart Catheterization, Heart Catheterization With Stent, Hernia Repair, Hysterectomy, Orthopedic Surgery, Tonsillectomy, Tubal Ligation Additional Past Surgical History / Comment(s): Hiatal Hernia, umbilical hernia repair, left rotator cuff repair, bilateral knee scopes, pain clinic procedures- occipital nerve block. abd exploratory sx(endometreosis), 3 abd scopes 1981, 1989, 1991), lumbar puncture. EGD. nerve biopsy, salvalry gland biospy Past Anesthesia/Blood Transfusion Reactions: No Reported Reaction Additional Past Anesthesia/Blood Transfusion Reaction / Comment(s): Claustrophobic Date of Last Stent Placement:: 06/03/2022 Past Psychological History: Anxiety, Bipolar, Panic Disorder, PTSD Smoking Status: Former smoker Past Alcohol Use History: None Reported Past Drug Use History: None Reported - Past Family History Mother Family Medical History: Cancer, Dementia, Diabetes Mellitus, GERD/Reflux, Hyperlipidemia, Hypertension, Thyroid Disorder Additional Family Medical History / Comment(s): CABG Father History Unknown: Yes Family Medical History: No Reported History General Exam Limitations: no limitations General appearance: alert, in no apparent distress Head exam: Present: atraumatic, normocephalic Eye exam: Present: normal appearance Neck exam: Present: normal inspection. Absent: tenderness Respiratory exam: Present: normal lung sounds bilaterally. Absent: respiratory distress, wheezes, rales, rhonchi, stridor Cardiovascular Exam: Present: normal rhythm, tachycardia, normal heart sounds. Absent: systolic murmur, diastolic murmur, rubs, gallop, clicks Neurological exam: Present: alert, oriented X3 Expanded Patient oriented to: Present: person, place, time Speech: Present: fluid speech Eye Response: (4) open spontaneously Motor Response: (6) obeys commands Verbal Response: (5) oriented Mauri Total: 15 Skin exam: Present: warm, dry Course Vital Signs 04/13/23 04/13/23 04/14/23 20:29 22:30 00:05 Temperature 98.5 F 98.0 F Pulse Rate 130 H 112 H 110 H Respiratory 18 18 18 Rate Blood Pressure 146/91 138/90 141/98 O2 Sat by Pulse 99 97 98 Oximetry Medical Decision Making - Medical Decision Making Was pt. sent in by a medical professional or institution (, PA, RETIREMENT ADMINISTRATOR, urgent care, hospital, or [place] health care facility...) When possible be specific @ -No Did you speak to anyone other than the patient for history (EMS, parent, family, police, friend...)? What history was obtained from this source @ -No Did you review nursing and triage notes (agree or disagree)? Why? @ -I reviewed and agree with nursing and triage notes Were old charts reviewed (outside hosp., previous admission, EMS record, old EKG, old radiological studies, urgent care reports/EKG's, [place] health care facility records)? Report findings @ -No old charts were reviewed Differential Diagnosis (chest pain, altered mental status, abdominal pain women, abdominal pain men, vaginal bleeding, weakness, fever, dyspnea, syncope, headache, dizziness, GI bleed, back pain, seizure, CVA, palpatations, mental health, musculoskeletal)? @ -MDM Differential Headache: Migraine, tension, cluster, carbon monoxide, central venous thrombosis, pension karma temporal arteritis, acute closure glaucoma, intercranial hemorrhage, mastoiditis, sinusitis, head injury this is not meant to be an all-inclusive list. EKG interpreted by me (3pts min.). @ -As above X-rays interpreted by me (1pt min.). @ -None done CT interpreted by me (1pt min.). @ -CT shows no evidence of acute intracranial hemorrhage, acute ischemic changes, mass, mass effect, or extra-axial fluid collection. There is no effacement of the cerebral stroke higher basal subarachnoid cisterns. There is no hydrocephalus. There is no midline shift. Johnson-white matter distinction is preserved. Partially empty sella. Leftward nasal septal deviation. Paranasal sinuses and mastoid air cells well pneumatized. Orbits and globes are intact. Slightly prominent fluid along the optic nerve she is. U/S interpreted by me (1pt. min.). @ -None done What testing was considered but not performed or refused? (CT, X-rays, U/S, labs)? Why? @ -None What meds were considered but not given or refused? Why? @ -None Did you discuss the management of the patient with other professionals (professionals i.e. , PA, RETIREMENT ADMINISTRATOR, lab, RT, psych nurse, director social, orange grower, teacher, correction officer city or county jail, caseworker)? Give summary @ -No Was smoking cessation discussed for >3mins.? @ -No Was critical care preformed (if so, how long)? @ -No Were there social determinants of health that impacted care today? How? (Homelessness, low income, unemployed, alcoholism, drug addiction, tr ansportation, low edu. Level, literacy, decrease access to med. care, usp, rehab)? @ -No Was there de-escalation of care discussed even if they declined (Discuss DNR or withdrawal of care, Hospice)? DNR status @ -No What co-morbidities impacted this encounter? (DM, HTN, Smoking, COPD, CAD, Cancer, CVA, ARF, Chemo, Hep., AIDS, mental health diagnosis, sleep apnea, morbid obesity)? @ -None Was patient admitted / discharged? Hospital course, mention meds given and route, prescriptions, significant lab abnormalities, going to OR and other pertinent info. @ -53-year-old female well known to our ER presenting with chief complaint of headache. Patient has history of migraine headaches. History and physical exam were conducted. Patient is given Dilaudid, Benadryl, Zofran, and Ativan which she states is normally what alleviates her headaches. CT of the brain is obtained, there is a partially empty sella visualized and otherwise no acute process. Patient reports some improvement in her pain after medication. She is discharged home. Follow-up with PCP. Report back to ER with any new or worsening symptoms. Discussed return parameters and answered all questions. Patient conveyed verbal understanding and agreed to the plan. I discussed this case in detail with my attending Dr. An Undiagnosed new problem with uncertain prognosis? @ -No Drug Therapy requiring intensive monitoring for toxicity (Heparin, Nitro, Insulin, Cardizem)? @ -No Were any procedures done? @ -No Diagnosis/symptom? @ -Migraine headache Acute, or Chronic, or Acute on Chronic? @ -Acute on chronic Uncomplicated (without systemic symptoms) or Complicated (systemic symptoms)? @ -Complicated Side effects of treatment? @ -No Exacerbation, Progression, or Severe Exacerbation? @ -No Poses a threat to life or bodily function? How? (Chest pain, [place], [place], pneumonia, PE, COPD, DKA, ARF, appy, cholecystitis, CVA, Diverticulitis, Homicidal, Suicidal, threat to staff... and all critical care pts) @ -Low likelihood Disposition Clinical Impression: Migraine Disposition: HOME SELF-CARE Condition: Good Instructions (If sedation given, give patient instructions): Migraine Headache (ED) Additional Instructions: Follow-up with PCP. Report back to ER if any new or worsening symptoms. Is patient prescribed a controlled substance at d/c from ED?: No Referrals: José Reece MD [Primary Care Provider] - 1-2 days Time of Disposition: 23:46
[2023-04-14 00:35] VITALS: BP 141/98; PULSE 110; TEMP 98
== END 2023-04-14 00:08 | disposition home or self-care (01) ==
LOC: EC 20:28
DX: G43.909 Migraine, unspecified, not intractable, without status migrainosus (principal); R00.0 Tachycardia, unspecified; I10 Essential (primary) hypertension; E78.5 Hyperlipidemia, unspecified; F31.9 Bipolar disorder, unspecified; F41.9 Anxiety disorder, unspecified; Z79.02 Long term (current) use of antithrombotics/antiplatelets; Z79.82 Long term (current) use of aspirin; Z79.899 Other long term (current) drug therapy; Z88.0 Allergy status to penicillin; Z88.1 Allergy status to other antibiotic agents; Z88.2 Allergy status to sulfonamides; Z88.5 Allergy status to narcotic agent; Z88.6 Allergy status to analgesic agent; Z88.8 Allergy status to other drugs, medicaments and biological substances; Z91.040 Latex allergy status; Z91.09 Other allergy status, other than to drugs and biological substances; Z87.891 Personal history of nicotine dependence; Z90.49 Acquired absence of other specified parts of digestive tract
CPT/HCPCS: 70450; 99284; 96374; 96375 ×3; 96361; J2060; J1200; J2405; J1170

== ENCOUNTER 2023-05-13 23:52 | Emergency (ER) | payer OTHER ==
[2023-05-14 00:11] VITALS: TEMP 98.5
[2023-05-14] MEDS: ONDANSETRON 4 MG/2 ML VIAL IVP STA (01:44)
[2023-05-14] MEDS: MORPHINE SULFATE 4 MG/ML SYRINGE IVP STA ×2 (01:45→03:50)
[2023-05-14 01:54] LABS: Basophils % (A) 1 %; Eosinophils # (A) 0.1 k/uL (0-0.7); Eosinophils % (A) 2 %; HCT 39.1 % (34.0-46.0); HGB 13.1 gm/dL (11.4-16.0); Lymphocytes % (A) 26 %; MCH 31.6 pg (25.0-35.0); MCHC 33.5 g/dL (31.0-37.0); MCV 94.4 fL (80.0-100.0); Mean Platelet Volume 8.1; Monocytes # (A) 0.4 k/uL (0-1.0); Monocytes % (A) 5 %; Neutrophils % (A) 66 %; Platelet Count 272 k/uL (150-450); RBC 4.15 m/uL (3.80-5.40); RDW 14.3 % (11.5-15.5); WBC 7.6 k/uL (3.8-10.6)
[2023-05-14 02:10] LABS: ALT 16 U/L (4-34); AST 22 U/L (14-36); African American GFR (CKD) >90 (>60 ml/min/1.73 sqM); Alkaline Phosphatase 120 U/L (38-126); Anion Gap 8 mmol/L; Blood Urea Nitrogen 8 mg/dL (7-17); Calcium 8.9 mg/dL (8.4-10.2); Carbon Dioxide 25 mmol/L (22-30); Chloride 107 mmol/L (98-107); Glucose 94 mg/dL (74-99); Non-African American GFR(CKD) >90 (>60 ml/min/1.73 sqM); Potassium 3.6 mmol/L (3.5-5.1); Sodium 140 mmol/L (137-145); Total Bilirubin 0.3 mg/dL (0.2-1.3); Total Protein 6.8 g/dL (6.3-8.2)
--- NOTE | 2023-05-14 02:26 | ED ---
General Adult HPI - General Chief complaint: Syncope Stated complaint: Syncope, Head Injury Time Seen by Provider: 05/14/23 00:22 Source: patient Mode of arrival: wheelchair Limitations: no limitations - History of Present Illness Initial comments: 53-year-old female presents to the emergency department reporting syncopal episode. States that she was getting out of the shower when she found herself on the ground. Her family members had found her. She believes that she lost consciousness. Reports that she fell backwards and hit her head on the tub. Denies any headaches or visual changes at this time. No neck or back pain. No nausea or vomiting. She did not take anything for her pain before coming in. Patient denies any unilateral numbness or weakness. No other alleviating, precipitating or modifying factors - Related Data Home Medications Medication Instructions Recorded Confirmed Omeprazole [PriLOSEC] 20 mg PO HS 12/15/20 12/24/22 Thiamine [Vitamin B-1] 100 mg PO HS 01/04/21 12/24/22 Atorvastatin [Lipitor] 40 mg PO HS 07/20/21 12/24/22 DULoxetine HCL [Cymbalta] 60 mg PO HS 07/20/21 12/24/22 Atogepant [Qulipta] 60 mg PO HS 06/03/22 12/24/22 Cyclobenzaprine [Flexeril] 10 mg PO TID PRN 06/03/22 12/24/22 HYDROcodone/APAP 10-325MG [[place] 1 tab PO TID PRN 06/03/22 12/24/22 10-325] Albuterol Inhaler [Ventolin Hfa 2 puff INHALATION RT-QID PRN 08/29/22 12/24/22 Inhaler] Aspirin 81 mg PO HS 08/29/22 12/24/22 Clopidogrel [Plavix] 75 mg PO HS 08/29/22 12/24/22 Famotidine [Pepcid] 20 mg PO HS 08/29/22 12/24/22 Hyoscyamine Sulfate [Levsin-Sl] 0.125 mg SL Q4H PRN 08/29/22 12/24/22 Vitamin B-12 (Unknown Dose) 1 tab PO HS 09/11/22 12/24/22 Lacosamide [Vimpat] 100 mg PO HS 11/07/22 12/24/22 Naloxone HCl [Narcan] 4 mg NASAL ONCE PRN 11/07/22 12/24/22 Nitroglycerin Sl Tabs [Nitrostat] 0.4 mg SL Q5M PRN 11/18/22 12/24/22 Losartan [Cozaar] 50 mg PO HS 12/20/22 12/24/22 hydroCHLOROthiazide 12.5 mg PO HS 12/20/22 12/24/22 Previous Rx's Medication Instructions Recorded Ondansetron Odt [Zofran ODT] 4 mg PO Q8HR PRN #9 tab 06/26/22 Allergies Allergy/AdvReac Type Severity Reaction Status Date / Time dihydroergotamine Allergy Unknown Unknown Verified 05/13/23 23:56 [From Migranal] buprenorphine Allergy Rash/Hives Verified 05/13/23 23:56 gabapentin [From Neurontin] Allergy Itching/Swe Verified 05/13/23 23:56 lling latex Allergy Anaphylaxis Verified 05/13/23 23:56 naproxen [From Naprosyn] Allergy Anaphylaxis Verified 05/13/23 23:56 Penicillins Allergy Anaphylaxis Verified 05/13/23 23:56 prednisone Allergy Swelling Verified 05/13/23 23:56 quetiapine fumarate Allergy Itching, Verified 05/13/23 23:56 [From Seroquel] leg cramps rofecoxib [From Vioxx] Allergy Itching, Verified 05/13/23 23:56 leg cramps terfenadine [From Seldane] Allergy Rash/Hives Verified 05/13/23 23:56 vancomycin Allergy Rash/Hives/Swelling Verified 05/13/23 23:56 @IV site calcium carbonate [From DHEA] AdvReac Chest Pain Verified 05/13/23 23:56 calcium phosphate,dibasic AdvReac Chest Pain Verified 05/13/23 23:56 [From DHEA] clindamycin AdvReac muscle Verified 05/13/23 23:56 cramps clonidine AdvReac fast Verified 05/13/23 23:56 heartbeat, migraine dextromethorphan HBr AdvReac face/neck Verified 05/13/23 23:56 [From NyQuil] flushing diazepam [From Valium] AdvReac Nausea & Verified 05/13/23 23:56 Vomiting divalproex sodium AdvReac Nausea & Verified 05/13/23 23:56 [From Depakote] Vomiting doxylamine [From NyQuil] AdvReac face "beet Verified 05/13/23 23:56 red", elevated temp. ibuprofen [From Motrin] AdvReac abdominal Verified 05/13/23 23:56 & muscle cramps indomethacin [From Indocin] AdvReac Abdominal Verified 05/13/23 23:56 Pain,N/V ketorolac tromethamine AdvReac "built up Verified 05/13/23 23:56 [From Toradol] in system", had to be given something to reverse lorazepam [From Ativan] AdvReac Nausea & Verified 05/13/23 23:56 Vomiting memantine [From Namenda] AdvReac Itching Verified 05/13/23 23:56 metoclopramide HCl AdvReac muscle Verified 05/13/23 23:56 [From Reglan] cramps nortriptyline [From Pamelor] AdvReac Chest Pain Verified 05/13/23 23:56 prasterone (DHEA) [From DHEA] AdvReac Chest Pain Verified 05/13/23 23:56 prochlorperazine AdvReac leg Verified 05/13/23 23:56 [From Compazine] cramping propranolol AdvReac Chest Pain Verified 05/13/23 23:56 pseudoephedrine HCl AdvReac face "beet Verified 05/13/23 23:56 [From NyQuil] red", elevated temp. quetiapine [From Seroquel] AdvReac leg Verified 05/13/23 23:56 cramping sumatriptan [From Imitrex] AdvReac migrane Verified 05/13/23 23:56 sumatriptan succinate AdvReac migrane Verified 05/13/23 23:56 [From Imitrex] topiramate [From Topamax] AdvReac "built up Verified 05/13/23 23:56 in system", had to be given something to reverse tramadol AdvReac Nausea & Verified 05/13/23 23:56 Vomiting/LEG CRAMPS/HEART FLUTTERS trazodone AdvReac "built up Verified 05/13/23 23:56 in system", had to be given something to reverse zolpidem tartrate AdvReac "Became Verified 05/13/23 23:56 [From Ambien] violent with no memory" zonisamide [From Zonegran] AdvReac inability Verified 05/13/23 23:56 to eat artificial sweetener AdvReac SEVERE Uncoded 05/13/23 23:56 MIGRAINE HEADACHE prosyn AdvReac Itching Uncoded 05/13/23 23:56 Review of Systems ROS Statement: Those systems with pertinent positive or pertinent negative responses have been documented in the HPI. ROS Other: All systems not noted in ROS Statement are negative. Past Medical History Past Medical History: Hyperlipidemia, Hypertension, Seizure Disorder Additional Past Medical History / Comment(s): Migraines, viral meningitis x3 as a child, 1995, 2000, chronic back pain, nerve blocks 08/2016 and 12/2016. Last seizure 10/10/2020, "ABSENT SEIZURES. HX TACHYCARDIA, GBS/CIPD, PTSD. History of Any Multi-Drug Resistant Organisms: None Reported Past Surgical History: Appendectomy, Section, Cholecystectomy, Heart Catheterization, Heart Catheterization With Stent, Hernia Repair, Hysterectomy, Orthopedic Surgery, Tonsillectomy, Tubal Ligation Additional Past Surgical History / Comment(s): Hiatal Hernia, umbilical hernia repair, left rotator cuff repair, bilateral knee scopes, pain clinic procedures- occipital nerve block. abd exploratory sx(endometreosis), 3 abd scopes 1981, 1989, 1991), lumbar puncture. EGD. nerve biopsy, salvalry gland biospy Past Anesthesia/Blood Transfusion Reactions: No Reported Reaction Additional Past Anesthesia/Blood Transfusion Reaction / Comment(s): Claustrophobic Date of Last Stent Placement:: 06/03/2022 Past Psychological History: Anxiety, Bipolar, Panic Disorder, PTSD Smoking Status: Former smoker Past Alcohol Use History: None Reported Past Drug Use History: None Reported - Past Family History Mother Family Medical History: Cancer, Dementia, Diabetes Mellitus, GERD/Reflux, H yperlipidemia, Hypertension, Thyroid Disorder Additional Family Medical History / Comment(s): CABG Father History Unknown: Yes Family Medical History: No Reported History General Exam Limitations: no limitations General appearance: alert, in no apparent distress Head exam: Present: atraumatic, normocephalic, normal inspection, other (No traumatic injuries to the head is appreciated) Eye exam: Present: normal appearance, PERRL, EOMI. Absent: scleral icterus, conjunctival injection, periorbital swelling ENT exam: Present: normal exam, mucous membranes moist Neck exam: Present: normal inspection. Absent: tenderness, meningismus, lymphadenopathy Respiratory exam: Present: normal lung sounds bilaterally. Absent: respiratory distress, wheezes, rales, rhonchi, stridor Cardiovascular Exam: Present: regular rate, normal rhythm, normal heart sounds. Absent: systolic murmur, diastolic murmur, rubs, gallop, clicks GI/Abdominal exam: Present: soft, normal bowel sounds. Absent: distended, tenderness, guarding, rebound, rigid Extremities exam: Present: normal inspection, full ROM, normal capillary refill. Absent: tenderness, pedal edema, joint swelling, calf tenderness Back exam: Present: normal inspection Neurological exam: Present: alert, oriented X3, CN II-XII intact Psychiatric exam: Present: normal affect, normal mood Skin exam: Present: warm, dry, intact, normal color. Absent: rash Course Vital Signs 05/13/23 05/14/23 05/14/23 23:54 00:34 02:20 Temperature 98.5 F Pulse Rate 95 96 92 Respiratory 18 20 18 Rate Blood Pressure 155/96 162/110 171/86 O2 Sat by Pulse 98 96 96 Oximetry 05/14/23 05/14/23 03:13 04:00 Temperature Pulse Rate 91 95 Respiratory 18 18 Rate Blood Pressure 158/98 158/97 O2 Sat by Pulse 98 Oximetry Medical Decision Making - Medical Decision Making Was pt. sent in by a medical professional or institution (, PA, SCREEN PRINTING LOADER UNLOADER, urgent care, hospital, or residential...) When possible be specific @ -No Did you speak to anyone other than the patient for history (EMS, parent, family, police, friend...)? What history was obtained from this source @ -No Did you review nursing and triage notes (agree or disagree)? Why? @ -I reviewed and agree with nursing and triage notes Were old charts reviewed (outside hosp., previous admission, EMS record, old EKG, old radiological studies, urgent care reports/EKG's, residential records)? Report findings @ -No old charts were reviewed Differential Diagnosis (chest pain, altered mental status, abdominal pain women, abdominal pain men, vaginal bleeding, weakness, fever, dyspnea, syncope, headache, dizziness, GI bleed, back pain, seizure, CVA, palpatations, mental health, musculoskeletal)? @ -Subarachnoid, subdural, skull fracture, cervical fracture EKG interpreted by me (3pts min.). @ -Yes and demonstrates sinus rhythm with a rate of 77. HI interval 164. QRS 80. QTc of 408. No acute ST segment elevations or depressions X-rays interpreted by me (1pt min.). @ -Yes and demonstrates no acute process CT interpreted by me (1pt min.). @ -Yes and demonstrates no acute intracranial process U/S interpreted by me (1pt. min.). @ -None done What testing was considered but not performed or refused? (CT, X-rays, U/S, labs)? Why? @ -None What meds were considered but not given or refused? Why? @ -None Did you discuss the management of the patient with other professionals (professionals i.e. , PA, SCREEN PRINTING LOADER UNLOADER, lab, RT, psych nurse, social work professor, computing consultant, teacher, booking police officer, rehabilitation case coordinator)? Give summary @ -No Was smoking cessation discussed for >3mins.? @ -No Was critical care preformed (if so, how long)? @ -No Were there social determinants of health that impacted care today? How? (Homelessness, low income, unemployed, alcoholism, drug addiction, transportation, low edu. Level, literacy, decrease access to med. care, longterm, rehab)? @ -No Was there de-escalation of care discussed even if they declined (Discuss DNR or withdrawal of care, Hospice)? DNR status @ -No What co-morbidities impacted this encounter? (DM, HTN, Smoking, COPD, CAD, Cancer, CVA, ARF, Chemo, Hep., AIDS, mental health diagnosis, sleep apnea, morbid obesity)? @ -Chronic migraines Was patient admitted / discharged? Hospital course, mention meds given and route, prescriptions, significant lab abnormalities, going to OR and other pertinent info. @ -Upon arrival patient placed into room 12. Thorough history and physical exam was performed. Patient is requesting pain medication due to the pain in her scalp from the fall and head injury. IV was established. Laboratory studies are conducted. CT of her brain and cervical spine as well as chest x- ray were performed. Results are discussed with the patient. At this time the patient will be discharged home. Instructed to follow-up with her primary care doctor. Return for any new or worsening symptoms. Patient agreeable to plan she was discharged in stable condition Undiagnosed new problem with uncertain prognosis? @ -No Drug Therapy requiring intensive monitoring for toxicity (Heparin, Nitro, Insulin, Cardizem)? @ -No Were any procedures done? @ -No Diagnosis/symptom? @ -Acute syncope, blunt head trauma, scalp pain Acute, or Chronic, or Acute on Chronic? @ -Acute Uncomplicated (without systemic symptoms) or Complicated (systemic symptoms)? @ -Complicated Side effects of treatment? @ -No Exacerbation, Progression, or Severe Exacerbation? @ -No Poses a threat to life or bodily function? How? (Chest pain, [place], [place], pneumonia, PE, COPD, DKA, ARF, appy, cholecystitis, CVA, Diverticulitis, Homicidal, Suicidal, threat to staff... and all critical care pts) @ -No - Lab Data Result diagrams: 05/14/23 01:40 05/14/23 01:40 Lab Results 05/14/23 05/14/23 05/14/23 Range/Units 01:40 01:40 01:40 WBC 7.6 (3.8-10.6) k/uL RBC 4.15 (3.80-5.40) m/uL Hgb 13.1 (11.4-16.0) gm/dL Hct 39.1 (34.0-46.0) % MCV 94.4 (80.0-100.0) fL MCH 31.6 (25.0-35.0) pg MCHC 33.5 (31.0-37.0) g/dL RDW 14.3 (11.5-15.5) % Plt Count 272 (150-450) k/uL MPV 8.1 Neutrophils % 66 % Lymphocytes % 26 % Monocytes % 5 % Eosinophils % 2 % Basophils % 1 % Neutrophils # 5.0 (1.3-7.7) k/uL Lymphocytes # 2.0 (1.0-4.8) k/uL Monocytes # 0.4 (0-1.0) k/uL Eosinophils # 0.1 (0-0.7) k/uL Basophils # 0.0 (0-0.2) k/uL Sodium 140 (137-145) mmol/L Potassium 3.6 (3.5-5.1) mmol/L Chloride 107 (98-107) mmol/L Carbon Dioxide 25 (22-30) mmol/L Anion Gap 8 mmol/L BUN 8 (7-17) mg/dL Creatinine 0.71 (0.52-1.04) mg/dL Est GFR (CKD-EPI)AfAm >90 (>60 ml/min/1.73 sqM) Est GFR (CKD-EPI)NonAf >90 (>60 ml/min/1.73 sqM) Glucose 94 (74-99) mg/dL Calcium 8.9 (8.4-10.2) mg/dL Total Bilirubin 0.3 (0.2-1.3) mg/dL AST 22 (14-36) U/L ALT 16 (4-34) U/L Alkaline Phosphatase 120 (38-126) U/L Troponin I <0.012 (0.000-0.034) ng/mL Total Protein 6.8 (6.3-8.2) g/dL Albumin 4.0 (3.5-5.0) g/dL Disposition Clinical Impression: Syncope, Head injury Disposition: HOME SELF-CARE Condition: Stable Instructions (If sedation given, give patient instructions): Syncope (ED), Head Injury (ED) Additional Instructions: Please follow-up with your primary care doctor and return for any new or worsening symptoms Is patient prescribed a controlled substance at d/c from ED?: No Referrals: José Reece MD [Primary Care Provider] - 1-2 days Time of Disposition: 03:36
--- NOTE | 2023-05-14 03:13 | CT ---
EXAM: CT Head Without Intravenous Contrast CLINICAL HISTORY: ITS.REASON CT Reason: syncope TECHNIQUE: Axial computed tomography images of the head/brain without intravenous contrast. CTDI is 45.3 mGy and DLP is 1017 mGy-cm. This CT exam was performed using one or more of the following dose reduction techniques: automated exposure control, adjustment of the mA and/or kV according to patient size, and/or use of iterative reconstruction technique. COMPARISON: No relevant prior studies available. FINDINGS: Brain: No hemorrhage or mass effect. Ventricles: No hydrocephalus. Bones/joints: Unremarkable. Soft tissues: Unremarkable. Sinuses: No air fluid level. Mastoid air cells: Clear. IMPRESSION: No acute hemorrhage, hydrocephalus, or mass effect. EXAM: CT Cervical Spine Without Intravenous Contrast CLINICAL HISTORY: ITS.REASON CT Reason: syncope TECHNIQUE: Axial computed tomography images of the cervical spine without intravenous contrast. CTDI is 16.7 mGy and DLP is 491.9 mGy-cm. This CT exam was performed using one or more of the following dose reduction techniques: automated exposure control, adjustment of the mA and/or kV according to patient size, and/or use of iterative reconstruction technique. COMPARISON: No relevant prior studies available. FINDINGS: Vertebrae: No acute fracture. Discs/spinal canal/neural foramina: degenerative changes. Soft tissues: No prevertebral swelling. IMPRESSION: No acute fracture or subluxation.
[2023-05-14 03:15] VITALS: RESP 18
--- NOTE | 2023-05-14 03:47 | XR ---
EXAM: XR Chest, 2 Views CLINICAL HISTORY: ITS.REASON XR Reason: syncope TECHNIQUE: Frontal and lateral views of the chest. COMPARISON: 11/18/2022 FINDINGS: Lungs: Unremarkable. No consolidation. Pleural space: Unremarkable. No pneumothorax. No pleural effusions. Heart: Unremarkable. No cardiomegaly. Mediastinum: Unremarkable. Normal mediastinal contour. Bones/joints: No acute osseous abnormalities. Tubes, lines and devices: Left IJ chest Mediport catheter with tip in the mid SVC. IMPRESSION: No acute cardiopulmonary disease.
[2023-05-14 04:41] VITALS: BP 158/97; PULSE 95
== END 2023-05-14 04:14 | disposition home or self-care (01) ==
LOC: EC 23:52
DX: S09.90XA Unspecified injury of head, initial encounter (principal); I10 Essential (primary) hypertension; E78.5 Hyperlipidemia, unspecified; F31.9 Bipolar disorder, unspecified; F41.9 Anxiety disorder, unspecified; Z79.02 Long term (current) use of antithrombotics/antiplatelets; Z79.899 Other long term (current) drug therapy; Z87.891 Personal history of nicotine dependence; Z88.0 Allergy status to penicillin; Z88.1 Allergy status to other antibiotic agents; Z88.2 Allergy status to sulfonamides; Z88.5 Allergy status to narcotic agent; Z88.6 Allergy status to analgesic agent; Z88.8 Allergy status to other drugs, medicaments and biological substances; Z91.040 Latex allergy status; Z90.49 Acquired absence of other specified parts of digestive tract; W01.110A Fall on same level from slipping, tripping and stumbling with subsequent striking against sharp glass, initial encounter
CPT/HCPCS: 99285 ×2; 96374 ×2; 96376 ×2; 96375 ×2; 36415; 93005; 80053; 84484; 85025; 71046; 72125; 70450; J2270; J2405

== ENCOUNTER 2023-07-03 19:23 | Emergency (ER) | payer OTHER ==
[2023-07-03 19:58] VITALS: TEMP 99.1
[2023-07-03] MEDS: HYDROmorphone 1 MG/ML 1 ML SYRINGE IM STA (20:23)
--- NOTE | 2023-07-03 20:30 | ED ---
Fall HPI - General Chief Complaint: Fall Stated Complaint: Fall- on blood thinners Time Seen by Provider: 07/03/23 19:45 Source: patient, RN notes reviewed, old records reviewed Mode of arrival: ambulatory Limitations: no limitations - History of Present Illness Initial Comments: This is a 53-year-old female to the ER after a fall. Patient had a slip and fall mechanical slip and fall got her finger stuck on a doorway. Patient is having severe right shoulder pain. No other injury noted. No other complaints. 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: no Place Fall Occurred: home Loss of Consciousness: none Prolonged Down Time?: no Symptoms Prior to Fall: none Location - Extremities: Right: Shoulder Severity: severe Severity scale (1-10): 7 Quality: stabbing Context: tripped/slipped Associated Symptoms: denies - Related Data Home Medications Medication Instructions Recorded Confirmed Omeprazole [PriLOSEC] 20 mg PO HS 12/15/20 12/24/22 Thiamine [Vitamin B-1] 100 mg PO HS 01/04/21 12/24/22 Atorvastatin [Lipitor] 40 mg PO HS 07/20/21 12/24/22 DULoxetine HCL [Cymbalta] 60 mg PO HS 07/20/21 12/24/22 Atogepant [Qulipta] 60 mg PO HS 06/03/22 12/24/22 Cyclobenzaprine [Flexeril] 10 mg PO TID PRN 06/03/22 12/24/22 HYDROcodone/APAP 10-325MG [[place] 1 tab PO TID PRN 06/03/22 12/24/22 10-325] Albuterol Inhaler [Ventolin Hfa 2 puff INHALATION RT-QID PRN 08/29/22 12/24/22 Inhaler] Aspirin 81 mg PO HS 08/29/22 12/24/22 Clopidogrel [Plavix] 75 mg PO HS 08/29/22 12/24/22 Famotidine [Pepcid] 20 mg PO HS 08/29/22 12/24/22 Hyoscyamine Sulfate [Levsin-Sl] 0.125 mg SL Q4H PRN 08/29/22 12/24/22 Vitamin B-12 (Unknown Dose) 1 tab PO HS 09/11/22 12/24/22 Lacosamide [Vimpat] 100 mg PO HS 11/07/22 12/24/22 Naloxone HCl [Narcan] 4 mg NASAL ONCE PRN 11/07/22 12/24/22 Nitroglycerin Sl Tabs [Nitrostat] 0.4 mg SL Q5M PRN 11/18/22 12/24/22 Losartan [Cozaar] 50 mg PO HS 12/20/22 12/24/22 hydroCHLOROthiazide 12.5 mg PO HS 12/20/22 12/24/22 Previous Rx's Medication Instructions Recorded Ondansetron Odt [Zofran ODT] 4 mg PO Q8HR PRN #9 tab 06/26/22 Allergies Allergy/AdvReac Type Severity Reaction Status Date / Time dihydroergotamine Allergy Unknown Unknown Verified 07/03/23 19:40 [From Migranal] buprenorphine Allergy Rash/Hives Verified 07/03/23 19:40 gabapentin [From Neurontin] Allergy Itching/Swe Verified 07/03/23 19:40 lling latex Allergy Anaphylaxis Verified 07/03/23 19:40 naproxen [From Naprosyn] Allergy Anaphylaxis Verified 07/03/23 19:40 Penicillins Allergy Anaphylaxis Verified 07/03/23 19:40 prednisone Allergy Swelling Verified 07/03/23 19:40 quetiapine fumarate Allergy Itching, Verified 07/03/23 19:40 [From Seroquel] leg cramps rofecoxib [From Vioxx] Allergy Itching, Verified 07/03/23 19:40 leg cramps terfenadine [From Seldane] Allergy Rash/Hives Verified 07/03/23 19:40 vancomycin Allergy Rash/Hives/Swelling Verified 07/03/23 19:40 @IV site calcium carbonate [From DHEA] AdvReac Chest Pain Verified 07/03/23 19:40 calcium phosphate,dibasic AdvReac Chest Pain Verified 07/03/23 19:40 [From DHEA] clindamycin AdvReac muscle Verified 07/03/23 19:40 cramps clonidine AdvReac fast Verified 07/03/23 19:40 heartbeat, migraine dextromethorphan HBr AdvReac face/neck Verified 07/03/23 19:40 [From NyQuil] flushing diazepam [From Valium] AdvReac Nausea & Verified 07/03/23 19:40 Vomiting divalproex sodium AdvReac Nausea & Verified 07/03/23 19:40 [From Depakote] Vomiting doxylamine [From NyQuil] AdvReac face "beet Verified 07/03/23 19:40 red", elevated temp. ibuprofen [From Motrin] AdvReac abdominal Verified 07/03/23 19:40 & muscle cramps indomethacin [From Indocin] AdvReac Abdominal Verified 07/03/23 19:40 Pain,N/V ketorolac tromethamine AdvReac "built up Verified 07/03/23 19:40 [From Toradol] in system", had to be given something to reverse lorazepam [From Ativan] AdvReac Nausea & Verified 07/03/23 19:40 Vomiting memantine [From Namenda] AdvReac Itching Verified 07/03/23 19:40 metoclopramide HCl AdvReac muscle Verified 07/03/23 19:40 [From Reglan] cramps nortriptyline [From Pamelor] AdvReac Chest Pain Verified 07/03/23 19:40 prasterone (DHEA) [From DHEA] AdvReac Chest Pain Verified 07/03/23 19:40 prochlorperazine AdvReac leg Verified 07/03/23 19:40 [From Compazine] cramping propranolol AdvReac Chest Pain Verified 07/03/23 19:40 pseudoephedrine HCl AdvReac face "beet Verified 07/03/23 19:40 [From NyQuil] red", elevated temp. quetiapine [From Seroquel] AdvReac leg Verified 07/03/23 19:40 cramping sumatriptan [From Imitrex] AdvReac migrane Verified 07/03/23 19:40 sumatriptan succinate AdvReac migrane Verified 07/03/23 19:40 [From Imitrex] topiramate [From Topamax] AdvReac "built up Verified 07/03/23 19:40 in system", had to be given something to reverse tramadol AdvReac Nausea & Verified 07/03/23 19:40 Vomiting/LEG CRAMPS/HEART FLUTTERS trazodone AdvReac "built up Verified 07/03/23 19:40 in system", had to be given something to reverse zolpidem tartrate AdvReac "Became Verified 07/03/23 19:40 [From Ambien] violent with no memory" zonisamide [From Zonegran] AdvReac inability Verified 07/03/23 19:40 to eat artificial sweetener AdvReac SEVERE Uncoded 07/03/23 19:40 MIGRAINE HEADACHE prosyn AdvReac Itching Uncoded 07/03/23 19:40 Review of Systems ROS Statement: Those systems with pertinent positive or pertinent negative responses have been documented in the HPI. ROS Other: All systems not noted in ROS Statement are negative. Past Medical History Past Medical History: Hyperlipidemia, Hypertension, Seizure Disorder Additional Past Medical History / Comment(s): Migraines, viral meningitis x3 as a child, 1995, 2000, chronic back pain, nerve blocks 08/2016 and 12/2016. Last seizure 10/10/2020, "ABSENT SEIZURES. HX TACHYCARDIA, GBS/CIPD, PTSD. History of Any Multi-Drug Resistant Organisms: None Reported Past Surgical History: Appendectomy, Section, Cholecystectomy, Heart Catheterization, Heart Catheterization With Stent, Hernia Repair, Hysterectomy, Orthopedic Surgery, Tonsillectomy, Tubal Ligation Additional Past Surgical History / Comment(s): Hiatal Hernia, umbilical hernia repair, left rotator cuff repair, bilateral knee scopes, pain clinic procedures- occipital nerve block. abd exploratory sx(endometreosis), 3 abd scopes 1981, 1989, 1991), lumbar puncture. EGD. nerve biopsy, salvalry gland biospy Past Anesthesia/Blood Transfusion Reactions: No Reported Reaction Additional Past Anesthesia/Blood Transfusion Reaction / Comment(s): Claustrophobic Date of Last Stent Placement:: 06/03/2022 Past Psychological History: Anxiety, Bipolar, Panic Disorder, PTSD Smoking Status: Former smoker Past Alcohol Use History: None Reported Past Drug Use History: None Reported - Past Family History Mother Family Medical History: Cancer, Dementia, Diabetes Mellitus, GERD/Reflux, Hyperlipidemia, Hypertension, Thyroid Disorder Additional Family Medical History / Comment(s): CABG Father History Unknown: Yes Family Medical History: No Reported History General Exam Limitations: no limitations General appearance: alert, in no apparent distress Head exam: Present: atraumatic, normocephalic, normal inspection Eye exam: Present: normal appearance, PERRL, EOMI. Absent: scleral icterus, conjunctival injection, periorbital swelling ENT exam: Present: normal exam, mucous membranes moist Neck exam: Present: normal inspection. Absent: tenderness, meningismus, lymphadenopathy Respiratory exam: Present: normal lung sounds bilaterally. Absent: respiratory distress, wheezes, rales, rhonchi, stridor Cardiovascular Exam: Present: regular rate, normal rhythm, normal heart sounds. Absent: systolic murmur, diastolic murmur, rubs, gallop, clicks GI/Abdominal exam: Present: soft, normal bowel sounds. Absent: distended, tenderness, guarding, rebound, rigid Extremities exam: Present: normal inspection, full ROM, normal capillary refill. Absent: tenderness, pedal edema, joint swelling, calf tenderness Back exam: Present: normal inspection Neurological exam: Present: alert, oriented X3, CN II-XII intact Psychiatric exam: Present: normal affect, normal mood Skin exam: Present: warm, dry, intact, normal color. Absent: rash Course Vital Signs 07/03/23 07/03/23 19:38 20:51 Temperature 99.1 F Pulse Rate 136 H 74 Respiratory 20 12 Rate Blood Pressure 121/82 120/82 O2 Sat by Pulse 99 97 Oximetry - Reevaluation(s) Reevaluation #1: 07/03/23 20:29 Medical record is reviewed Reevaluation #2: 07/03/23 20:29 Patient symptoms are improved Reevaluation #3: 07/03/23 20:29 Patient informed of results and questions answered Reevaluation #4: Was pt. sent in by a medical professional or institution (, PA, FOOD AND BEVERAGE SERVER, urgent care, hospital, or prison...) When possible be specific @ -no Did you speak to anyone other than the patient for history (EMS, parent, family, police, friend...)? What history was obtained from this source @ -no Did you review nursing and triage notes (agree or disagree)? Why? @ -agree Are old charts reviewed (outside hosp., previous admission, EMS record, old EKG, old radiological studies, urgent care reports/EKG's, prison records)? Report findings @ -yes Differential Diagnosis (chest pain, altered mental status, abdominal pain women, abdominal pain men, vaginal bleeding, weakness, fever, dyspnea, syncope, headache, dizziness, GI bleed, back pain, seizure, CVA, palpatations, mental health, musculoskeletal)? @ -prior EKG interpreted by me (3pts min.). @ -no X-rays interpreted by me (1pt min.). @ -yes negative for acute disease CT interpreted by me (1pt min.). @ -no U/S interpreted by me (1pt. min.). @ -no What testing was considered but not performed or refused? (CT, X-rays, U/S, labs)? Why? @ -none What meds were considered but not given or refused? Why? @ -none Did you discuss the management of the patient with other professionals (professionals i.e. , PA, FOOD AND BEVERAGE SERVER, lab, RT, psych nurse, psychotherapist social worker, extractor plant operator, teacher, executive vice president and chief operating officer, supportive employment case manager)? Give summary @ -no Was smoking cessation discussed for >3mins.? @ -no Was critical care preformed (if so, how long)? @ -no Were there social determinants of health that impacted care today? How? (Homelessness, low income, unemployed, alcoholism, drug addiction, transportation, low edu. Level, literacy, decrease access to med. care, half-way, rehab)? @ -none Was there de-escalation of care discussed even if they declined (Discuss DNR or withdrawal of care, Hospice)? DNR status @ -no What co-morbidities impacted this encounter? (DM, HTN, Smoking, COPD, CAD, Cancer, CVA, ARF, Chemo, Hep., AIDS, mental health diagnosis, sleep apnea, morbid obesity)? @ -none Was patient admitted / discharged? Hospital course, mention meds given and route, prescriptions, significant lab abnormalities, going to OR and other pertinent info. @ - 53 female to the ER for evaluation of fall with right shoulder pain. Severe right shoulder pain but no traumatic injury. Patient has a sling placed feels well and can be discharged home Discharge Undiagnosed new problem with uncertain prognosis? @ -no Drug Therapy requiring intensive monitoring for toxicity (Heparin, Nitro, Insulin, Cardizem)? @ -no Were any procedures done? @ -no Diagnosis/symptom? @ -Fall with shoulder injury shoulder contusion Acute, or Chronic, or Acute on Chronic? @ -Acute Uncomplicated (without systemic symptoms) or Complicated (systemic symptoms)? @ -Complicated Side effects of treatment? @ -no Exacerbation, Progression, or Severe Exacerbation? @ -exacerbation Poses a threat to life or bodily function? How? (Chest pain, [place], [place], pneumonia, PE, COPD, DKA, ARF, appy, cholecystitis, CVA, Diverticulitis, Homicidal, Suicidal, threat to staff... and all critical care pts) @ -no Medical Decision Making - Medical Decision Making 53 female to the ER for evaluation of fall with right shoulder pain. Severe right shoulder pain but no traumatic injury. Patient has a sling placed feels well and can be discharged home - Radiology Data Radiology results: report reviewed (Chest x-ray x-ray shoulder negative for traumatic injury), image reviewed Disposition Clinical Impression: Fall, Contusion of right shoulder Disposition: HOME SELF-CARE Condition: Good Instructions (If sedation given, give patient instructions): Swollen Joint (ED), Shoulder Pain (ED) Is patient prescribed a controlled substance at d/c from ED?: No Referrals: José Reece MD [Primary Care Provider] - 1-2 days Time of Disposition: 20:45
--- NOTE | 2023-07-03 21:00 | XR ---
EXAM: XR chest 1V portable CLINICAL INDICATION:Female, 53 years old with history of fall; [facility] COMPARISON: 05/14/2023 TECHNIQUE: Chest single view. FINDINGS: Lines/tubes/devices: Left chest MediPort with catheter tip over the SVC unchanged Cardiomediastinum: Cardiac silhouette appears normal in size. Tortuous aorta. Mediastinal contours are well-defined. Vasculature: No increased pulmonary vasculature. Lungs/pleura: Lungs appear largely unchanged. Slight asymmetric elevation left hemidiaphragm with mild left basilar atelectasis. No consolidation, sizeable effusion, or visible pneumothorax. Bones/soft tissues: Bony thorax appears grossly intact as seen. Mild apex right curvature of the dorsal spine. Regional s oft tissues appear unremarkable. IMPRESSION: No evidence of acute traumatic injury to the chest.
[2023-07-03 21:04] VITALS: BP 120/82; PULSE 74; RESP 12
--- NOTE | 2023-07-03 21:06 | XR ---
EXAMINATION TYPE: XR shoulder complete RT DATE OF EXAM: 07/03/2023 8:34 PM CLINICAL INDICATION:Female, 53 years old with history of fall; [facility] COMPARISON: TECHNIQUE: XR shoulder complete RT; shoulder was examined in AP, internally rotated and scapular Y p rojections. FINDINGS: Mild degenerative change at the AC joint with preserved alignment. Glenohumeral joint appears normall y positioned. Osseous structures appear intact. Soft tissues are normal. IMPRESSION: 1. No acute fracture or dislocation. 2. Mild degenerative changes of the AC joint.
== END 2023-07-03 20:52 | disposition home or self-care (01) ==
LOC: EC 19:23
DX: S40.011A Contusion of right shoulder, initial encounter (principal); Z91.040 Latex allergy status; Z88.8 Allergy status to other drugs, medicaments and biological substances; Z88.1 Allergy status to other antibiotic agents; Z88.6 Allergy status to analgesic agent; Z88.5 Allergy status to narcotic agent; W01.0XXA Fall on same level from slipping, tripping and stumbling without subsequent striking against object, initial encounter
CPT/HCPCS: 73030; 71045; 99284; 96372; J1170

== ENCOUNTER 2023-07-09 16:31 | Emergency (ER) | payer OTHER ==
[2023-07-09 17:04] VITALS: BP 168/105; PULSE 100; RESP 20; TEMP 97.8
--- NOTE | 2023-07-09 17:32 | ED ---
Headache HPI - General Chief Complaint: Headache Stated Complaint: migraine,nausea, vomitting Time Seen by Provider: 07/09/23 16:34 Source: RN notes reviewed, old records reviewed Mode of arrival: ambulatory Limitations: no limitations - History of Present Illness Initial Comments: This is a 53-year-old female well-known to this ER. Patient presents for headache migraine headache acute on chronic headache MD Complaint: headache, "migraine" -: hour(s) Onset Description: gradual Location: right, left, frontal, temporal Severity: severe Severity scale (1-10): 10 Quality: aching, throbbing Consistency: constant Improves With: nothing Worsens With: none Context: other (0) - Related Data Home Medications Medication Instructions Recorded Confirmed Omeprazole [PriLOSEC] 20 mg PO HS 12/15/20 12/24/22 Thiamine [Vitamin B-1] 100 mg PO HS 01/04/21 12/24/22 Atorvastatin [Lipitor] 40 mg PO HS 07/20/21 12/24/22 DULoxetine HCL [Cymbalta] 60 mg PO HS 07/20/21 12/24/22 Atogepant [Qulipta] 60 mg PO HS 06/03/22 12/24/22 Cyclobenzaprine [Flexeril] 10 mg PO TID PRN 06/03/22 12/24/22 HYDROcodone/APAP 10-325MG [[place] 1 tab PO TID PRN 06/03/22 12/24/22 10-325] Albuterol Inhaler [Ventolin Hfa 2 puff INHALATION RT-QID PRN 08/29/22 12/24/22 Inhaler] Aspirin 81 mg PO HS 08/29/22 12/24/22 Clopidogrel [Plavix] 75 mg PO HS 08/29/22 12/24/22 Famotidine [Pepcid] 20 mg PO HS 08/29/22 12/24/22 Hyoscyamine Sulfate [Levsin-Sl] 0.125 mg SL Q4H PRN 08/29/22 12/24/22 Vitamin B-12 (Unknown Dose) 1 tab PO HS 09/11/22 12/24/22 Lacosamide [Vimpat] 100 mg PO HS 11/07/22 12/24/22 Naloxone HCl [Narcan] 4 mg NASAL ONCE PRN 11/07/22 12/24/22 Nitroglycerin Sl Tabs [Nitrostat] 0.4 mg SL Q5M PRN 11/18/22 12/24/22 Losartan [Cozaar] 50 mg PO HS 12/20/22 12/24/22 hydroCHLOROthiazide 12.5 mg PO HS 12/20/22 12/24/22 Previous Rx's Medication Instructions Recorded Ondansetron Odt [Zofran ODT] 4 mg PO Q8HR PRN #9 tab 06/26/22 Allergies Allergy/AdvReac Type Severity Reaction Status Date / Time dihydroergotamine Allergy Unknown Unknown Verified 07/11/23 17:14 [From Migranal] buprenorphine Allergy Rash/Hives Verified 07/11/23 17:14 gabapentin [From Neurontin] Allergy Itching/Swe Verified 07/11/23 17:14 lling latex Allergy Anaphylaxis Verified 07/11/23 17:14 naproxen [From Naprosyn] Allergy Anaphylaxis Verified 07/11/23 17:14 Penicillins Allergy Anaphylaxis Verified 07/11/23 17:14 prednisone Allergy Swelling Verified 07/11/23 17:14 quetiapine fumarate Allergy Itching, Verified 07/11/23 17:14 [From Seroquel] leg cramps rofecoxib [From Vioxx] Allergy Itching, Verified 07/11/23 17:14 leg cramps terfenadine [From Seldane] Allergy Rash/Hives Verified 07/11/23 17:14 vancomycin Allergy Rash/Hives/Swelling Verified 07/11/23 17:14 @IV site calcium carbonate [From DHEA] AdvReac Chest Pain Verified 07/11/23 17:14 calcium phosphate,dibasic AdvReac Chest Pain Verified 07/11/23 17:14 [From DHEA] clindamycin AdvReac muscle Verified 07/11/23 17:14 cramps clonidine AdvReac fast Verified 07/11/23 17:14 heartbeat, migraine dextromethorphan HBr AdvReac face/neck Verified 07/11/23 17:14 [From NyQuil] flushing diazepam [From Valium] AdvReac Nausea & Verified 07/11/23 17:14 Vomiting divalproex sodium AdvReac Nausea & Verified 07/11/23 17:14 [From Depakote] Vomiting doxylamine [From NyQuil] AdvReac face "beet Verified 07/11/23 17:14 red", elevated temp. ibuprofen [From Motrin] AdvReac abdominal Verified 07/11/23 17:14 & muscle cramps indomethacin [From Indocin] AdvReac Abdominal Verified 07/11/23 17:14 Pain,N/V ketorolac tromethamine AdvReac "built up Verified 07/11/23 17:14 [From Toradol] in system", had to be given something to reverse lorazepam [From Ativan] AdvReac Nausea & Verified 07/11/23 17:14 Vomiting memantine [From Namenda] AdvReac Itching Verified 07/11/23 17:14 metoclopramide HCl AdvReac muscle Verified 07/11/23 17:14 [From Reglan] cramps nortriptyline [From Pamelor] AdvReac Chest Pain Verified 07/11/23 17:14 prasterone (DHEA) [From DHEA] AdvReac Chest Pain Verified 07/11/23 17:14 prochlorperazine AdvReac leg Verified 07/11/23 17:14 [From Compazine] cramping propranolol AdvReac Chest Pain Verified 07/11/23 17:14 pseudoephedrine HCl AdvReac face "beet Verified 07/11/23 17:14 [From NyQuil] red", elevated temp. quetiapine [From Seroquel] AdvReac leg Verified 07/11/23 17:14 cramping sumatriptan [From Imitrex] AdvReac migrane Verified 07/11/23 17:14 sumatriptan succinate AdvReac migrane Verified 07/11/23 17:14 [From Imitrex] topiramate [From Topamax] AdvReac "built up Verified 07/11/23 17:14 in system", had to be given something to reverse tramadol AdvReac Nausea & Verified 07/11/23 17:14 Vomiting/LEG CRAMPS/HEART FLUTTERS trazodone AdvReac "built up Verified 07/11/23 17:14 in system", had to be given something to reverse zolpidem tartrate AdvReac "Became Verified 07/11/23 17:14 [From Ambien] violent with no memory" [facility]amide [facility] AdvReac inability Verified 07/11/23 17:14 to eat artificial sweetener AdvReac SEVERE Uncoded 07/11/23 17:14 MIGRAINE HEADACHE prosyn AdvReac Itching Uncoded 07/11/23 17:14 Review of Systems ROS Statement: Those systems with pertinent positive or pertinent negative responses have been documented in the HPI. ROS Other: All systems not noted in ROS Statement are negative. Past Medical History Past Medical History: Hyperlipidemia, Hypertension, Seizure Disorder Additional Past Medical History / Comment(s): Migraines, viral meningitis x3 as a child, 1995, 2000, chronic back pain, nerve blocks 08/2016 and 12/2016. Last seizure 10/10/2020, "ABSENT SEIZURES. HX TACHYCARDIA, GBS/CIPD, PTSD. History of Any Multi-Drug Resistant Organisms: None Reported Past Surgical History: Appendectomy, Section, Cholecystectomy, Heart Catheterization, Heart Catheterization With Stent, Hernia Repair, Hysterectomy, Orthopedic Surgery, Tonsillectomy, Tubal Ligation Additional Past Surgical History / Comment(s): Hiatal Hernia, umbilical hernia repair, left rotator cuff repair, bilateral knee scopes, pain clinic procedures- occipital nerve block. abd exploratory sx(endometreosis), 3 abd scopes 1981, 1989, 1991), lumbar puncture. EGD. nerve biopsy, salvalry gland biospy Past Anesthesia/Blood Transfusion Reactions: No Reported Reaction Additional Past Anesthesia/Blood Transfusion Reaction / Comment(s): Claustrophobic Date of Last Stent Placement:: 06/03/2022 Past Psychological History: Anxiety, Bipolar, Panic Disorder, PTSD Smoking Status: Former smoker Past Alcohol Use History: None Reported Past Drug Use History: None Reported - Past Family History Mother Family Medical History: Cancer, Dementia, Diabetes Mellitus, GERD/Reflux, Hyperlipidemia, Hypertension, Thyroid Disorder Additional Family Medical History / Comment(s): CABG Father History Unknown: Yes Family Medical History: No Reported History General Exam Limitations: no limitations General appearance: alert, in no apparent distress Head exam: Present: atraumatic, normocephalic, normal inspection Eye exam: Present: normal appearance, PERRL, EOMI. Absent: scleral icterus, conjunctival injection, periorbital swelling ENT exam: Present: normal exam, mucous membranes moist Neck exam: Present: normal inspection. Absent: tenderness, meningismus, lymphadenopathy Respiratory exam: Present: normal lung sounds bilaterally. Absent: respiratory distress, wheezes, rales, rhonchi, stridor Cardiovascular Exam: Present: regular rate, normal rhythm, normal heart sounds. Absent: systolic murmur, diastolic murmur, rubs, gallop, clicks GI/Abdominal exam: Present: soft, normal bowel sounds. Absent: distended, tenderness, guarding, rebound, rigid Extremities exam: Present: normal inspection, full ROM, normal capillary refill. Absent: tenderness, pedal edema, joint swelling, calf tenderness Back exam: Present: normal inspection Neurological exam: Present: alert, oriented X3, CN II-XII intact Psychiatric exam: Present: normal affect, normal mood Skin exam: Present: warm, dry, intact, normal color. Absent: rash Course Vital Signs 07/09/23 16:43 Temperature 97.8 F Pulse Rate 100 Respiratory 20 Rate Blood Pressure 168/105 O2 Sat by Pulse 99 Oximetry - Reevaluation(s) Reevaluation #1: Medical records reviewed Reevaluation #2: Patient symptoms improved Reevaluation #3: Patient informed of results and questions answered Reevaluation #4: Was pt. sent in by a medical professional or institution (, PA, DIRECTOR POST, urgent care, hospital, or usp...) When possible be specific @ -no Did you speak to anyone other than the patient for history (EMS, parent, family, police, friend...)? What history was obtained from this source @ -no Did you review nursing and triage notes (agree or disagree)? Why? @ -agree Are old charts reviewed (outside hosp., previous admission, EMS record, old EKG, old radiological studies, urgent care reports/EKG's, usp records)? Report findings @ -yes Differential Diagnosis (chest pain, altered mental status, abdominal pain women, abdominal pain men, vaginal bleeding, weakness, fever, dyspnea, syncope, headache, dizziness, GI bleed, back pain, seizure, CVA, palpatations, mental health, musculoskeletal)? @ -prior EKG interpreted by me (3pts min.). @ -no X-rays interpreted by me (1pt min.). @ -no CT interpreted by me (1pt min.). @ -no U/S interpreted by me (1pt. min.). @ -no What testing was considered but not performed or refused? (CT, X-rays, U/S, labs)? Why? @ -none What meds were considered but not given or refused? Why? @ -none Did you discuss the management of the patient with other professionals (professionals i.e. , PA, DIRECTOR POST, lab, RT, psych nurse, social work job titles, immigration lawyer, teacher, real estate utilization officer, showcase trimmer)? Give summary @ -no Was smoking cessation discussed for >3mins.? @ -no Was critical care preformed (if so, how long)? @ -no Were there social determinants of health that impacted care today? How? (Homelessness, low income, unemployed, alcoholism, drug addiction, transportation, low edu. Level, literacy, decrease access to med. care, usp, rehab)? @ -none Was there de-escalation of care discussed even if they declined (Discuss DNR or withdrawal of care, Hospice)? DNR status @ -no What co-morbidities impacted this encounter? (DM, HTN, Smoking, COPD, CAD, Cancer, CVA, ARF, Chemo, Hep., AIDS, mental health diagnosis, sleep apnea, morbid obesity)? @ -none Was patient admitted / discharged? Hospital course, mention meds given and route, prescriptions, significant lab abnormalities, going to OR and other pertinent info. @ - 53 female well-known to this ER for evaluation of headaches migraine headache symptoms are resolved here in the ER patient feels well and can be discharged home Discharge Undiagnosed new problem with uncertain prognosis? @ -no Drug Therapy requiring intensive monitoring for toxicity (Heparin, Nitro, Insulin, Cardizem)? @ -no Were any procedures done? @ -no Diagnosis/symptom? @ -Migraine headache Acute, or Chronic, or Acute on Chronic? @ -Acute Uncomplicated (without systemic symptoms) or Complicated (systemic symptoms)? @ -Complicated Side effects of treatment? @ -no Exacerbation, Progression, or Severe Exacerbation? @ -exacerbation Poses a threat to life or bodily function? How? (Chest pain, [place], [place], pneumonia, PE, COPD, DKA, ARF, appy, cholecystitis, CVA, Diverticulitis, Homicidal, Suicidal, threat to staff... and all critical care pts) @ -no Reevaluation #5: Differential Headache: Migraine, tension, cluster, carbon monoxide, central venous thrombosis, pension karma temporal arteritis, acute closure glaucoma, intercranial hemorrhage, mastoiditis, sinusitis, head injury, this is not meant to be an all-inclusive list. Medical Decision Making - Medical Decision Making 53 female well-known to this ER for evaluation of headaches migraine headache symptoms are resolved here in the ER patient feels well and can be discharged home Disposition Clinical Impression: Nausea and vomiting, Migraine Disposition: HOME SELF-CARE Condition: Fair Instructions (If sedation given, give patient instructions): Acute Headache (ED) Is patient prescribed a controlled substance at d/c from ED?: No Referrals: José Reece MD [Primary Care Provider] - 1-2 days Time of Disposition: 17:30
[2023-07-09] MEDS: diphenhydrAMINE 50 MG CAP PO STA (17:48)
[2023-07-09] MEDS: droPERidol 5 MG/2 ML VIAL IM ONE (17:49)
[2023-07-09] MEDS: HYDROmorphone 1 MG/ML 1 ML SYRINGE IM STA (17:50)
== END 2023-07-09 17:57 | disposition home or self-care (01) ==
LOC: EC 16:31
DX: G43.909 Migraine, unspecified, not intractable, without status migrainosus (principal); Z88.0 Allergy status to penicillin; Z88.8 Allergy status to other drugs, medicaments and biological substances; Z91.040 Latex allergy status; Z88.1 Allergy status to other antibiotic agents; Z88.6 Allergy status to analgesic agent; Z88.5 Allergy status to narcotic agent; Z91.02 Food additives allergy status; Z87.891 Personal history of nicotine dependence
CPT/HCPCS: 99284; 96372 ×2; J1170; J1790

== ENCOUNTER 2023-07-11 16:55 | Emergency (ER) | payer OTHER ==
[2023-07-11 17:27] VITALS: TEMP 98.2
[2023-07-11] MEDS: ONDANSETRON ODT 4 MG TAB PO STA (19:43)
--- NOTE | 2023-07-11 19:43 | CT ---
EXAMINATION TYPE: CT brain cspine wo con CT DLP: 1091.2 mGycm, Automated exposure control for dose reduction was used. DATE OF EXAM: 07/11/2023 7:17 PM COMPARISON: 05/14/2023 CLINICAL INDICATION:Female, 53 years old with history of fall with head injury; syncope, fall + LOC TECHNIQUE: Brain: Multiple axial CT images of the brain were obtained without IV contrast. Cspine: Axial CT images from the skull base to the inferior aspect of T2 we obtained without intraven ous contrast. Coronal and sagittal reformatted images were also reviewed. FINDINGS: Brain: Extra-axial spaces: No abnormal extra-axial fluid collections. Ventricular system: Within normal limits. Cerebral parenchyma: No increased attenuation to suggest acute intraparenchymal hemorrhage. The gra y-white matter interface appears maintained. No significant atrophy. White matter unremarkable by C T. Cerebellum: No acute abnormality. Mass effect: No evidence of mass effect or midline shift. Intracranial vasculature: Unremarkable Soft tissues: Normal. Visualized orbits: Orbital contents appear grossly intact. Calvarium/osseous structures: No evidence of calvarial fracture. Paranasal sinuses and mastoid air cells: Clear. MRI is more sensitive for detecting acute processes such as infarct, and may be considered if clinica lly warranted. Cervical spine: Fracture: None seen. Osseous structures, spinal canal/neural foramina: Craniocervical junction is intact. Mild degenerativ e changes of the atlantooccipital joints and anterior C1-C2 articulation. There is otherwise mild/mod erate multilevel degenerative disk disease and facet arthrosis in the cervical spine with most signif icant changes appearing at C4-C5 and C5-C6 where disc marginal osteophytes and mild facet disease cau se [id number] canal and neural foraminal stenoses. Vertebral alignment: No traumatic malalignment. Mild reversal of the normal lordosis from C2 to C7, l ikely degenerative but can be exacerbated by pain, positioning or spasm. Neck soft tissues: No acute finding.. Unremarkable thyroid. Left IJ approach Port-A-Cath with distal catheter and tip not seen in the scope of this study. Other: Lung apices show no pneumothorax. Slightly hazy appearance of the lung apices could be due to edema or microatelectatic changes. Calcifications along the aortic arch branch vessels. IMPRESSION: CT head: 1. No acute intracranial CT abnormality. CT cervical spine: 1. No evidence of acute cervical spine fracture or traumatic malalignment. 2. Mild/moderate cervical spondylosis.
[2023-07-11] MEDS: HYDROmorphone 1 MG/ML 1 ML SYRINGE IM STA (19:44)
--- NOTE | 2023-07-11 19:49 | CT ---
EXAMINATION TYPE: CT facial bones wo con CT DLP: 1091.2 mGycm, Automated exposure control for dose reduction was used. DATE OF EXAM: 07/11/2023 7:17 PM COMPARISON: . CLINICAL INDICATION:Female, 53 years old with history of fall with head injury; PHH, syncope, fall + LOC TECHNIQUE: Multiple unenhanced axial CT images were obtained of the facial bones soft tissue and bone windows. Coronal, axial and sagittal reformatted images were also provided in soft tissue and bone windows and submitted for interpretation. Additional 3-D reformatted images were obtained on a [employer] workstation. FINDINGS: TMJs appear intact and normally aligned. Mandible shows no fracture. Remainder of the facial bones ap pear intact. Orbits appear intact. No significant fluid is seen in the paranasal sinuses. Mastoid air cells are clear. Orbital soft tissues are unremarkable. No retrobulbar hematoma. Globes appear intact. Other imaged so ft tissues are within normal limits. IMPRESSION: Unremarkable CT of the facial bones.
--- NOTE | 2023-07-11 20:27 | ED ---
Fall HPI - General Chief Complaint: Fall Stated Complaint: Fall-Head Injury-blood thinners Time Seen by Provider: 07/11/23 17:34 Source: patient Mode of arrival: wheelchair - History of Present Illness Initial Comments: 53-year-old female with past medical history of migraines, chronic pain who presents emergency department reporting head injury. States she was in the bathroom when she fell and hit the right side of her face on her bathtub. Unknown how long she was unconscious. States that she has decreased vision in the right eye. This happened right after her injury. Patient denies any neck or back pain. No numbness, tingling or weakness in her extremities. No other alleviating, precipitating or modifying factors - Related Data Home Medications Medication Instructions Recorded Confirmed Omeprazole [PriLOSEC] 20 mg PO HS 12/15/20 12/24/22 Thiamine [Vitamin B-1] 100 mg PO HS 01/04/21 12/24/22 Atorvastatin [Lipitor] 40 mg PO HS 07/20/21 12/24/22 DULoxetine HCL [Cymbalta] 60 mg PO HS 07/20/21 12/24/22 Atogepant [Qulipta] 60 mg PO HS 06/03/22 12/24/22 Cyclobenzaprine [Flexeril] 10 mg PO TID PRN 06/03/22 12/24/22 HYDROcodone/APAP 10-325MG [[place] 1 tab PO TID PRN 06/03/22 12/24/22 10-325] Albuterol Inhaler [Ventolin Hfa 2 puff INHALATION RT-QID PRN 08/29/22 12/24/22 Inhaler] Aspirin 81 mg PO HS 08/29/22 12/24/22 Clopidogrel [Plavix] 75 mg PO HS 08/29/22 12/24/22 Famotidine [Pepcid] 20 mg PO HS 08/29/22 12/24/22 Hyoscyamine Sulfate [Levsin-Sl] 0.125 mg SL Q4H PRN 08/29/22 12/24/22 Vitamin B-12 (Unknown Dose) 1 tab PO HS 09/11/22 12/24/22 Lacosamide [Vimpat] 100 mg PO HS 11/07/22 12/24/22 Naloxone HCl [Narcan] 4 mg NASAL ONCE PRN 11/07/22 12/24/22 Nitroglycerin Sl Tabs [Nitrostat] 0.4 mg SL Q5M PRN 11/18/22 12/24/22 Losartan [Cozaar] 50 mg PO HS 12/20/22 12/24/22 hydroCHLOROthiazide 12.5 mg PO HS 12/20/22 12/24/22 Previous Rx's Medication Instructions Recorded Ondansetron Odt [Zofran ODT] 4 mg PO Q8HR PRN #9 tab 06/26/22 Allergies Allergy/AdvReac Type Severity Reaction Status Date / Time dihydroergotamine Allergy Unknown Unknown Verified 07/11/23 17:14 [From Migranal] buprenorphine Allergy Rash/Hives Verified 07/11/23 17:14 gabapentin [From Neurontin] Allergy Itching/Swe Verified 07/11/23 17:14 lling latex Allergy Anaphylaxis Verified 07/11/23 17:14 naproxen [From Naprosyn] Allergy Anaphylaxis Verified 07/11/23 17:14 Penicillins Allergy Anaphylaxis Verified 07/11/23 17:14 prednisone Allergy Swelling Verified 07/11/23 17:14 quetiapine fumarate Allergy Itching, Verified 07/11/23 17:14 [From Seroquel] leg cramps rofecoxib [From Vioxx] Allergy Itching, Verified 07/11/23 17:14 leg cramps terfenadine [From Seldane] Allergy Rash/Hives Verified 07/11/23 17:14 vancomycin Allergy Rash/Hives/Swelling Verified 07/11/23 17:14 @IV site calcium carbonate [From DHEA] AdvReac Chest Pain Verified 07/11/23 17:14 calcium phosphate,dibasic AdvReac Chest Pain Verified 07/11/23 17:14 [From DHEA] clindamycin AdvReac muscle Verified 07/11/23 17:14 cramps clonidine AdvReac fast Verified 07/11/23 17:14 heartbeat, migraine dextromethorphan HBr AdvReac face/neck Verified 07/11/23 17:14 [From NyQuil] flushing diazepam [From Valium] AdvReac Nausea & Verified 07/11/23 17:14 Vomiting divalproex sodium AdvReac Nausea & Verified 07/11/23 17:14 [From Depakote] Vomiting doxylamine [From NyQuil] AdvReac face "beet Verified 07/11/23 17:14 red", elevated temp. ibuprofen [From Motrin] AdvReac abdominal Verified 07/11/23 17:14 & muscle cramps indomethacin [From Indocin] AdvReac Abdominal Verified 07/11/23 17:14 Pain,N/V ketorolac tromethamine AdvReac "built up Verified 07/11/23 17:14 [From Toradol] in system", had to be given something to reverse lorazepam [From Ativan] AdvReac Nausea & Verified 07/11/23 17:14 Vomiting memantine [From Namenda] AdvReac Itching Verified 07/11/23 17:14 metoclopramide HCl AdvReac muscle Verified 07/11/23 17:14 [From Reglan] cramps nortriptyline [From Pamelor] AdvReac Chest Pain Verified 07/11/23 17:14 prasterone (DHEA) [From DHEA] AdvReac Chest Pain Verified 07/11/23 17:14 prochlorperazine AdvReac leg Verified 07/11/23 17:14 [From Compazine] cramping propranolol AdvReac Chest Pain Verified 07/11/23 17:14 pseudoephedrine HCl AdvReac face "beet Verified 07/11/23 17:14 [From NyQuil] red", elevated temp. quetiapine [From Seroquel] AdvReac leg Verified 07/11/23 17:14 cramping sumatriptan [From Imitrex] AdvReac migrane Verified 07/11/23 17:14 sumatriptan succinate AdvReac migrane Verified 07/11/23 17:14 [From Imitrex] topiramate [From Topamax] AdvReac "built up Verified 07/11/23 17:14 in system", had to be given something to reverse tramadol AdvReac Nausea & Verified 07/11/23 17:14 Vomiting/LEG CRAMPS/HEART FLUTTERS trazodone AdvReac "built up Verified 07/11/23 17:14 in system", had to be given something to reverse zolpidem tartrate AdvReac "Became Verified 07/11/23 17:14 [From Ambien] violent with no memory" zonisamide [From Zonegran] AdvReac inability Verified 07/11/23 17:14 to eat artificial sweetener AdvReac SEVERE Uncoded 07/11/23 17:14 MIGRAINE HEADACHE prosyn AdvReac Itching Uncoded 07/11/23 17:14 Review of Systems ROS Statement: Those systems with pertinent positive or pertinent negative responses have been documented in the HPI. ROS Other: All systems not noted in ROS Statement are negative. Past Medical History Past Medical History: Hyperlipidemia, Hypertension, Seizure Disorder Additional Past Medical History / Comment(s): Migraines, viral meningitis x3 as a child, 1995, 2000, chronic back pain, nerve blocks 08/2016 and 12/2016. Last seizure 10/10/2020, "ABSENT SEIZURES. HX TACHYCARDIA, GBS/CIPD, PTSD. History of Any Multi-Drug Resistant Organisms: None Reported Past Surgical History: Appendectomy, Section, Cholecystectomy, Heart Catheterization, Heart Catheterization With Stent, Hernia Repair, Hysterectomy, Orthopedic Surgery, Tonsillectomy, Tubal Ligation Additional Past Surgical History / Comment(s): Hiatal Hernia, umbilical hernia repair, left rotator cuff repair, bilateral knee scopes, pain clinic procedures- occipital nerve block. abd exploratory sx(endometreosis), 3 abd scopes 1981, 1989, 1991), lumbar puncture. EGD. nerve biopsy, salvalry gland biospy Past Anesthesia/Blood Transfusion Reactions: No Reported Reaction Additional Past Anesthesia/Blood Transfusion Reaction / Comment(s): Claustrophobic Date of Last Stent Placement:: 06/03/2022 Past Psychological History: Anxiety, Bipolar, Panic Disorder, PTSD Smoking Status: Former smoker Past Alcohol Use History: None Reported Past Drug Use History: None Reported - Past Family History Mother Family Medical History: Cancer, Dementia, Diabetes Mellitus, GERD/Reflux, Hyperlipidemia, Hypertension, Thyroid Disorder Additional Family Medical History / Comment(s): CABG Father History Unknown: Yes Family Medical History: No Reported History General Exam Limitations: no limitations General appearance: alert, in no apparent distress Head exam: Present: atraumatic, normocephalic, normal inspection, other (Patient has no external signs of trauma. No signs of entrapment. No redness or swelling) Eye exam: Present: normal appearance, PERRL, EOMI. Absent: scleral icterus, conjunctival injection, periorbital swelling ENT exam: Present: normal exam, mucous membranes moist Neck exam: Present: normal inspection. Absent: tenderness, meningismus, lymphadenopathy Respiratory exam: Present: normal lung sounds bilaterally. Absent: respiratory distress, wheezes, rales, rhonchi, stridor Cardiovascular Exam: Present: regular rate, normal rhythm, normal heart sounds. Absent: systolic murmur, diastolic murmur, rubs, gallop, clicks GI/Abdominal exam: Present: soft, normal bowel sounds. Absent: distended, tenderness, guarding, rebound, rigid Extremities exam: Present: normal inspection, full ROM, normal capillary refill. Absent: tenderness, pedal edema, joint swelling, calf tenderness Back exam: Present: normal inspection Neurological exam: Present: alert, oriented X3, CN II-XII intact Psychiatric exam: Present: normal affect, normal mood Skin exam: Present: warm, dry, intact, normal color. Absent: rash Course Vital Signs 07/11/23 07/11/23 17:09 21:10 Temperature 98.2 F 98.2 F Pulse Rate 98 91 Respiratory 18 17 Rate Blood Pressure 154/104 168/90 O2 Sat by Pulse 100 98 Oximetry Medical Decision Making - Medical Decision Making Was pt. sent in by a medical professional or institution (, PA, MANAGER PROCESS EXCELLENCE, urgent care, hospital, or group home...) When possible be specific @ -No Did you speak to anyone other than the patient for history (EMS, parent, family, police, friend...)? What history was obtained from this source @ -No Did you review nursing and triage notes (agree or disagree)? Why? @ -I reviewed and agree with nursing and triage notes Were old charts reviewed (outside hosp., previous admission, EMS record, old EKG, old radiological studies, urgent care reports/EKG's, group home records)? Report findings @ -No old charts were reviewed Differential Diagnosis (chest pain, altered mental status, abdominal pain women, abdominal pain men, vaginal bleeding, weakness, fever, dyspnea, syncope, headache, dizziness, GI bleed, back pain, seizure, CVA, palpatations, mental health, musculoskeletal)? @ -Subarachnoid, subdural, retinal detachment, facial fracture EKG interpreted by me (3pts min.). @ -Not done X-rays interpreted by me (1pt min.). @ -None done CT interpreted by me (1pt min.). @ -Yes and demonstrates no signs of intracranial injury U/S interpreted by me (1pt. min.). @ -None done What testing was considered but not performed or refused? (CT, X-rays, U/S, labs)? Why? @ -None What meds were considered but not given or refused? Why? @ -None Did you discuss the management of the patient with other professionals (professionals i.e. , PA, MANAGER PROCESS EXCELLENCE, lab, RT, psych nurse, high school social studies teacher, fire operations forester, teacher, aoc director combat plans officer, dependency case manager)? Give summary @ -No Was smoking cessation discussed for >3mins.? @ -No Was critical care preformed (if so, how long)? @ -No Were there social determinants of health that impacted care today? How? (Homelessness, low income, unemployed, alcoholism, drug addiction, transportation, low edu. Level, literacy, decrease access to med. care, fdc, rehab)? @ -No Was there de-escalation of care discussed even if they declined (Discuss DNR or withdrawal of care, Hospice)? DNR status @ -No What co-morbidities impacted this encounter? (DM, HTN, Smoking, COPD, CAD, Cancer, CVA, ARF, Chemo, Hep., AIDS, mental health diagnosis, sleep apnea, morbid obesity)? @ -Chronic pain, migraines Was patient admitted / discharged? Hospital course, mention meds given and route, prescriptions, significant lab abnormalities, going to OR and other pertinent info. @ -Upon arrival patient was seen and evaluated in room 28. Thorough history and physical exam was performed. Patient has no outward signs of trauma. No hyphema. No ocular entrapment. No abnormal pupil shape. Globe is soft without signs of perforation. I do shine the light in the patient's eye. She reports that she cannot perceive the light however she is perceiving the light when I shine it in her eye. CT was performed which demonstrates no facial fractures. No retro-orbital hematoma. Ultrasound was performed which does not demonstrate retinal detachment. Patient was given pain medication and does report improvement in her pain. At this time I do feel that the patient is stable for discharge home. Patient will require follow-up with her coordinate measuring machine technician. Instructed to return for any new or worsening symptoms. Patient agreeable to plan was discharged in stable condition Undiagnosed new problem with uncertain prognosis? @ -No Drug Therapy requiring intensive monitoring for toxicity (Heparin, Nitro, Insulin, Cardizem)? @ -No Were any procedures done? @ -No Diagnosis/symptom? @ -Acute fall, blunt head trauma, visual disturbance right eye Acute, or Chronic, or Acute on Chronic? @ -Acute Uncomplicated (without systemic symptoms) or Complicated (systemic symptoms)? @ -Complicated Side effects of treatment? @ -No Exacerbation, Progression, or Severe Exacerbation? @ -No Poses a threat to life or bodily function? How? (Chest pain, [place], [place], pneumonia, PE, COPD, DKA, ARF, appy, cholecystitis, CVA, Diverticulitis, Homicidal, Suicidal, threat to staff... and all critical care pts) @ -No Disposition Clinical Impression: Fall, Head injury, Visual disturbance Disposition: HOME SELF-CARE Condition: Stable Instructions (If sedation given, give patient instructions): Head Injury (ED), Fall Prevention (ED) Additional Instructions: Please follow-up with your neurologist/ coordinate measuring machine technician and return for any new or worsening symptoms Is patient prescribed a controlled substance at d/c from ED?: No Referrals: José Reece MD [Primary Care Provider] - 1-2 days Time of Disposition: 20:27
[2023-07-11] MEDS: HYDROmorphone 0.5 MG/0.5 ML SYRINGE IM STA (21:03)
[2023-07-11 21:41] VITALS: BP 168/90; PULSE 91; RESP 17
== END 2023-07-11 21:10 | disposition home or self-care (01) ==
LOC: EC 16:55
DX: S09.90XA Unspecified injury of head, initial encounter (principal); H53.9 Unspecified visual disturbance; G43.909 Migraine, unspecified, not intractable, without status migrainosus; G89.29 Other chronic pain; Z88.0 Allergy status to penicillin; Z88.1 Allergy status to other antibiotic agents; Z88.8 Allergy status to other drugs, medicaments and biological substances; Z88.5 Allergy status to narcotic agent; Z88.6 Allergy status to analgesic agent; Z91.040 Latex allergy status; Z91.02 Food additives allergy status; Z87.891 Personal history of nicotine dependence; W18.2XXA Fall in (into) shower or empty bathtub, initial encounter; Y92.002 Bathroom of unspecified non-institutional (private) residence as the place of occurrence of the external cause
CPT/HCPCS: 72125; 70486; 70450; 99284; 96372 ×2; J1170 ×2

== ENCOUNTER 2023-08-05 23:53 | Emergency (ER) | payer OTHER ==
--- NOTE | 2023-08-06 00:37 | ED ---
Headache HPI - General Stated Complaint: Migraine Time Seen by Provider: 08/06/23 00:36 Source: patient, RN notes reviewed Mode of arrival: wheelchair Limitations: no limitations - History of Present Illness Initial Comments: 53-year-old female presented to the ER with chief complaint of migraine. She states that started around 8:30 PM. She tried taking her abortive headache m edication that usually works and has been unsuccessful. She is endorsing photophobia and phonophobia. She states when she takes a drink of water she feels extremely nauseous. Denies any other complaints. - Related Data Home Medications Medication Instructions Recorded Confirmed Omeprazole [PriLOSEC] 20 mg PO HS 12/15/20 12/24/22 Thiamine [Vitamin B-1] 100 mg PO HS 01/04/21 12/24/22 Atorvastatin [Lipitor] 40 mg PO HS 07/20/21 12/24/22 DULoxetine HCL [Cymbalta] 60 mg PO HS 07/20/21 12/24/22 Atogepant [Qulipta] 60 mg PO HS 06/03/22 12/24/22 Cyclobenzaprine [Flexeril] 10 mg PO TID PRN 06/03/22 12/24/22 HYDROcodone/APAP 10-325MG [Narvon 1 tab PO TID PRN 06/03/22 12/24/22 10-325] Albuterol Inhaler [Ventolin Hfa 2 puff INHALATION RT-QID PRN 08/29/22 12/24/22 Inhaler] Aspirin 81 mg PO HS 08/29/22 12/24/22 Clopidogrel [Plavix] 75 mg PO HS 08/29/22 12/24/22 Famotidine [Pepcid] 20 mg PO HS 08/29/22 12/24/22 Hyoscyamine Sulfate [Levsin-Sl] 0.125 mg SL Q4H PRN 08/29/22 12/24/22 Vitamin B-12 (Unknown Dose) 1 tab PO HS 09/11/22 12/24/22 Lacosamide [Vimpat] 100 mg PO HS 11/07/22 12/24/22 Naloxone HCl [Narcan] 4 mg NASAL ONCE PRN 11/07/22 12/24/22 Nitroglycerin Sl Tabs [Nitrostat] 0.4 mg SL Q5M PRN 11/18/22 12/24/22 Losartan [Cozaar] 50 mg PO HS 12/20/22 12/24/22 hydroCHLOROthiazide 12.5 mg PO HS 12/20/22 12/24/22 Previous Rx's Medication Instructions Recorded Ondansetron Odt [Zofran ODT] 4 mg PO Q8HR PRN #9 tab 06/26/22 Allergies Allergy/AdvReac Type Severity Reaction Status Date / Time dihydroergotamine Allergy Unknown Unknown Verified 07/11/23 17:14 [From Migranal] buprenorphine Allergy Rash/Hives Verified 07/11/23 17:14 gabapentin [From Neurontin] Allergy Itching/Swe Verified 07/11/23 17:14 lling latex Allergy Anaphylaxis Verified 08/06/23 00:38 naproxen [From Naprosyn] Allergy Anaphylaxis Verified 08/06/23 00:38 Penicillins Allergy Anaphylaxis Verified 08/06/23 00:38 prednisone Allergy Swelling Verified 08/06/23 00:38 quetiapine fumarate Allergy Itching, Verified 08/06/23 00:38 [From Seroquel] leg cramps rofecoxib [From Vioxx] Allergy Itching, Verified 08/06/23 00:38 leg cramps terfenadine [From Seldane] Allergy Rash/Hives Verified 08/06/23 00:38 vancomycin Allergy Rash/Hives/Swelling Verified 08/06/23 00:38 @IV site calcium carbonate [From DHEA] AdvReac Chest Pain Verified 08/06/23 00:38 calcium phosphate,dibasic AdvReac Chest Pain Verified 08/06/23 00:38 [From DHEA] clindamycin AdvReac muscle Verified 08/06/23 00:38 cramps clonidine AdvReac fast Verified 08/06/23 00:38 heartbeat, migraine dextromethorphan HBr AdvReac face/neck Verified 08/06/23 00:38 [From NyQuil] flushing diazepam [From Valium] AdvReac Nausea & Verified 08/06/23 00:38 Vomiting divalproex sodium AdvReac Nausea & Verified 08/06/23 00:38 [From Depakote] Vomiting doxylamine [From NyQuil] AdvReac face "beet Verified 08/06/23 00:38 red", elevated temp. ibuprofen [From Motrin] AdvReac abdominal Verified 08/06/23 00:38 & muscle cramps indomethacin [From Indocin] AdvReac Abdominal Verified 08/06/23 00:38 Pain,N/V ketorolac tromethamine AdvReac "built up Verified 08/06/23 00:38 [From Toradol] in system", had to be given something to reverse lorazepam [From Ativan] AdvReac Nausea & Verified 08/06/23 00:38 Vomiting memantine [From Namenda] AdvReac Itching Verified 08/06/23 00:38 metoclopramide HCl AdvReac muscle Verified 08/06/23 00:38 [From Reglan] cramps nortriptyline [From Pamelor] AdvReac Chest Pain Verified 08/06/23 00:38 prasterone (DHEA) [From DHEA] AdvReac Chest Pain Verified 08/06/23 00:38 prochlorperazine AdvReac leg Verified 08/06/23 00:38 [From Compazine] cramping propranolol AdvReac Chest Pain Verified 08/06/23 00:38 pseudoephedrine HCl AdvReac face "beet Verified 08/06/23 00:38 [From NyQuil] red", elevated temp. quetiapine [From Seroquel] AdvReac leg Verified 08/06/23 00:38 cramping sumatriptan [From Imitrex] AdvReac migrane Verified 08/06/23 00:38 sumatriptan succinate AdvReac migrane Verified 08/06/23 00:38 [From Imitrex] topiramate [From Topamax] AdvReac "built up Verified 08/06/23 00:38 in system", had to be given something to reverse tramadol AdvReac Nausea & Verified 08/06/23 00:38 Vomiting/LEG CRAMPS/HEART FLUTTERS trazodone AdvReac "built up Verified 08/06/23 00:38 in system", had to be given something to reverse zolpidem tartrate AdvReac "Became Verified 08/06/23 00:38 [From Ambien] violent with no memory" zonisamide [From Zonegran] AdvReac inability Verified 08/06/23 00:38 to eat artificial sweetener AdvReac SEVERE Uncoded 08/06/23 00:38 MIGRAINE HEADACHE prosyn AdvReac Itching Uncoded 08/06/23 00:38 Review of Systems ROS Statement: Those systems with pertinent positive or pertinent negative responses have been documented in the HPI. ROS Other: All systems not noted in ROS Statement are negative. Past Medical History Past Medical History: Hyperlipidemia, Hypertension, Seizure Disorder Additional Past Medical History / Comment(s): Migraines, viral meningitis x3 as a child, 1995, 2000, chronic back pain, nerve blocks 08/2016 and 12/2016. Last seizure 10/10/2020, "ABSENT SEIZURES. HX TACHYCARDIA, GBS/CIPD, PTSD. History of Any Multi-Drug Resistant Organisms: None Reported Past Surgical History: Appendectomy, Section, Cholecystectomy, Heart Catheterization, Heart Catheterization With Stent, Hernia Repair, Hysterectomy, Orthopedic Surgery, Tonsillectomy, Tubal Ligation Additional Past Surgical History / Comment(s): Hiatal Hernia, umbilical hernia repair, left rotator cuff repair, bilateral knee scopes, pain clinic procedures- occipital nerve block. abd exploratory sx(endometreosis), 3 abd scopes 1981, 1989, 1991), lumbar puncture. EGD. nerve biopsy, salvalry gland biospy Past Anesthesia/Blood Transfusion Reactions: No Reported Reaction Additional Past Anesthesia/Blood Transfusion Reaction / Comment(s): Claustrophobic Date of Last Stent Placement:: 06/03/2022 Past Psychological History: Anxiety, Bipolar, Panic Disorder, PTSD Smoking Status: Former smoker Past Alcohol Use History: None Reported Past Drug Use History: None Reported - Past Family History Mother Family Medical History: Cancer, Dementia, Diabetes Mellitus, GERD/Reflux, Hyperlipidemia, Hypertension, Thyroid Disorder Additional Family Medical History / Comment(s): CABG Father History Unknown: Yes Family Medical History: No Reported History General Exam - General Exam Comments Initial Comments: Visual Physical Exam Vital signs reviewed General: Well-appearing, nontoxic, no acute distress. Head: Normocephalic, atraumatic Eyes: PERRLA, EOMI ENT: Airway patent Chest: Nonlabored breathing Skin: No visual rash, normal skin tone Neuro: Alert and oriented 3 Musculoskeletal: No gross abnormalities General appearance: alert, in no apparent distress Head exam: Present: atraumatic, normocephalic, normal inspection Eye exam: Present: normal appearance, PERRL, EOMI. Absent: scleral icterus, conjunctival injection, periorbital swelling Pupils: Present: normal accommodation ENT exam: Present: normal exam, mucous membranes moist Respiratory exam: Present: normal lung sounds bilaterally. Absent: respiratory distress, wheezes, rales, rhonchi, stridor Cardiovascular Exam: Present: regular rate, normal rhythm, normal heart sounds. Absent: systolic murmur, diastolic murmur, rubs, gallop, clicks Neurological exam: Present: alert, oriented X3, CN II-XII intact Psychiatric exam: Present: normal affect, normal mood Course Vital Signs 08/06/23 08/06/23 00:34 02:01 Temperature 98.5 F Pulse Rate 104 H 105 H Respiratory 18 16 Rate Blood Pressure 162/105 142/89 O2 Sat by Pulse 95 92 L Oximetry Medical Decision Making - Medical Decision Making I performed the quick note portion of this chart. Electronically signed by Elle Simon PA-C Was pt. sent in by a medical professional or institution ([facility] Silver, CHARGING MANIPULATOR, urgent care, hospital, or fci...) When possible be specific @ -No Did you speak to anyone other than the patient for history (EMS, parent, family, police, friend...)? What history was obtained from this source @ -No Did you review nursing and triage notes (agree or disagree)? Why? @ -I reviewed and agree with nursing and triage notes Were old charts reviewed (outside hosp., previous admission, EMS record, old EKG, old radiological studies, urgent care reports/EKG's, fci records)? Report findings @ -No old charts were reviewed Differential Diagnosis (chest pain, altered mental status, abdominal pain women, abdominal pain men, vaginal bleeding, weakness, fever, dyspnea, syncope, headache, dizziness, GI bleed, back pain, seizure, CVA, palpatations, mental health, musculoskeletal)? @ -Differential Headache:Migraine, tension, cluster, carbon monoxide, central venous thrombosis, pension karma temporal arteritis, acute closure glaucoma, intercranial hemorrhage, mastoiditis, sinusitis, head injury, this is not meant to be an all-inclusive list. EKG interpreted by me (3pts min.). @ -None X-rays interpreted by me (1pt min.). @ -None done CT interpreted by me (1pt min.). @ -None done U/S interpreted by me (1pt. min.). @ -None done What testing was considered but not performed or refused? (CT, X-rays, U/S, labs)? Why? @ -None What meds were considered but not given or refused? Why? @ -None Did you discuss the management of the patient with other professionals (professionals i.e. DrJesu, PA, CHARGING MANIPULATOR, lab, RT, psych nurse, social media strategist, negative cleaner, teacher, [employer] officer, case planner)? Give summary @ -No Was smoking cessation discussed for >3mins.? @ -No Was critical care preformed (if so, how long)? @ -No Were there social determinants of health that impacted care today? How? (Homelessness, low income, unemployed, alcoholism, drug addiction, transportation, low edu. Level, literacy, decrease access to med. care, shelter, rehab)? @ -No Was there de-escalation of care discussed even if they declined (Discuss DNR or withdrawal of care, Hospice)? DNR status @ -No What co-morbidities impacted this encounter? (DM, HTN, Smoking, COPD, CAD, Cancer, CVA, ARF, Chemo, Hep., AIDS, mental health diagnosis, sleep apnea, morbid obesity)? @ -None Was patient admitted / discharged? Hospital course, mention meds given and route, prescriptions, significant lab abnormalities, going to OR and other pertinent info. @ -Discharged. 53-year-old female presented to the ER with chief complaint of migraine. History and physical exam completed. Vitals stable. Patient in no signs of acute distress and nontoxic-appearing. No acute on findings on exam. Symptomatic treatment achieved in the ER. Upon reevaluation, patient eager for discharge. Patient states she has a follow-up appointment with her headache doctor later this month. Return parameters discussed. Patient discharged in stable condition with follow-up to PCP/neurologist. Patient verbally expressed understanding and agreement with care plan. Case discussed with ED attending, Dr. Hein. Undiagnosed new problem with uncertain prognosis? @ -No Drug Therapy requiring intensive monitoring for toxicity (Heparin, Nitro, Insulin, Cardizem)? @ -No Were any procedures done? @ -No Diagnosis/symptom? @ -Migraine Acute, or Chronic, or Acute on Chronic? @ -Acute Uncomplicated (without systemic symptoms) or Complicated (systemic symptoms)? @ -Uncomplicated Side effects of treatment? @ -No Exacerbation, Progression, or Severe Exacerbation? @ -No Poses a threat to life or bodily function? How? (Chest pain, [place], [place], pneumonia, PE, COPD, DKA, ARF, appy, cholecystitis, CVA, Diverticulitis, Homicidal, Suicidal, threat to staff... and all critical care pts) @ -No Disposition Clinical Impression: Migraine Disposition: HOME SELF-CARE Condition: Stable Additional Instructions: Follow-up with neurologist as scheduled. Return to the ER for new or worse concerns Is patient prescribed a controlled substance at d/c from ED?: No Referrals: José Reece MD [Primary Care Provider] - 1-2 days Time of Disposition: 01:55
[2023-08-06 00:48] VITALS: TEMP 98.5
[2023-08-06] MEDS: HYDROmorphone 1 MG/ML 1 ML SYRINGE IM STA (01:19)
[2023-08-06] MEDS: diphenhydrAMINE 50 MG/ML 1 ML VIAL IM STA (01:20)
[2023-08-06] MEDS: ONDANSETRON ODT 4 MG TAB PO STA (01:21)
[2023-08-06 02:19] VITALS: BP 142/89; PULSE 105; RESP 16
== END 2023-08-06 02:02 | disposition home or self-care (01) ==
LOC: EC 23:53
DX: G43.909 Migraine, unspecified, not intractable, without status migrainosus (principal); Z87.891 Personal history of nicotine dependence; Z88.1 Allergy status to other antibiotic agents; Z88.2 Allergy status to sulfonamides; Z88.5 Allergy status to narcotic agent; Z88.6 Allergy status to analgesic agent; Z88.8 Allergy status to other drugs, medicaments and biological substances; Z88.0 Allergy status to penicillin; Z91.040 Latex allergy status
CPT/HCPCS: 99283; 96372 ×2; J1200; J1170

== ENCOUNTER 2023-08-31 19:57 | Emergency (ER) | payer OTHER ==
[2023-08-31 20:13] VITALS: TEMP 97.9
[2023-08-31] MEDS: ONDANSETRON 4 MG/2 ML VIAL IVP STA (22:21)
[2023-08-31] MEDS: MORPHINE SULFATE 4 MG/ML SYRINGE IVP STA (22:22)
--- NOTE | 2023-08-31 22:50 | ED ---
General Adult HPI - General Chief complaint: Headache Stated complaint: Migraine, NVD Time Seen by Provider: 08/31/23 20:21 Source: patient, RN notes reviewed Mode of arrival: ambulatory Limitations: no limitations - History of Present Illness Initial comments: 53-year-old female presents to the emergency department for evaluation of migraine headache. Patient states that she has a history of migraines and this is similar to prior. Patient reports that this is on the right side of her head. This migraine started around 3 PM today. She states that she has tried her home abortive medications and [place] without any relief. She admits to photosensitivity which is typical for her migraines. She also reports nausea. She denies any fever, chills, changes in character, worst headache of her life. - Related Data Home Medications Medication Instructions Recorded Confirmed Omeprazole [PriLOSEC] 20 mg PO HS 12/15/20 12/24/22 Thiamine [Vitamin B-1] 100 mg PO HS 01/04/21 12/24/22 Atorvastatin [Lipitor] 40 mg PO HS 07/20/21 12/24/22 DULoxetine HCL [Cymbalta] 60 mg PO HS 07/20/21 12/24/22 Atogepant [Qulipta] 60 mg PO HS 06/03/22 12/24/22 Cyclobenzaprine [Flexeril] 10 mg PO TID PRN 06/03/22 12/24/22 HYDROcodone/APAP 10-325MG [[place] 1 tab PO TID PRN 06/03/22 12/24/22 10-325] Albuterol Inhaler [Ventolin Hfa 2 puff INHALATION RT-QID PRN 08/29/22 12/24/22 Inhaler] Aspirin 81 mg PO HS 08/29/22 12/24/22 Clopidogrel [Plavix] 75 mg PO HS 08/29/22 12/24/22 Famotidine [Pepcid] 20 mg PO HS 08/29/22 12/24/22 Hyoscyamine Sulfate [Levsin-Sl] 0.125 mg SL Q4H PRN 08/29/22 12/24/22 Vitamin B-12 (Unknown Dose) 1 tab PO HS 09/11/22 12/24/22 Lacosamide [Vimpat] 100 mg PO HS 11/07/22 12/24/22 Naloxone HCl [Narcan] 4 mg NASAL ONCE PRN 11/07/22 12/24/22 Nitroglycerin Sl Tabs [Nitrostat] 0.4 mg SL Q5M PRN 11/18/22 12/24/22 Losartan [Cozaar] 50 mg PO HS 12/20/22 12/24/22 hydroCHLOROthiazide 12.5 mg PO HS 12/20/22 12/24/22 Previous Rx's Medication Instructions Recorded Ondansetron Odt [Zofran ODT] 4 mg PO Q8HR PRN #9 tab 06/26/22 Allergies Allergy/AdvReac Type Severity Reaction Status Date / Time dihydroergotamine Allergy Unknown Unknown Verified 08/31/23 20:03 [From Migranal] buprenorphine Allergy Rash/Hives Verified 08/31/23 20:03 gabapentin [From Neurontin] Allergy Itching/Swe Verified 08/31/23 20:03 lling latex Allergy Anaphylaxis Verified 08/31/23 20:03 naproxen [From Naprosyn] Allergy Anaphylaxis Verified 08/31/23 20:03 Penicillins Allergy Anaphylaxis Verified 08/31/23 20:03 prednisone Allergy Swelling Verified 08/31/23 20:03 quetiapine fumarate Allergy Itching, Verified 08/31/23 20:03 [From Seroquel] leg cramps rofecoxib [From Vioxx] Allergy Itching, Verified 08/31/23 20:03 leg cramps terfenadine [From Seldane] Allergy Rash/Hives Verified 08/31/23 20:03 vancomycin Allergy Rash/Hives/Swelling Verified 08/31/23 20:03 @IV site calcium carbonate [From DHEA] AdvReac Chest Pain Verified 08/31/23 20:03 calcium phosphate,dibasic AdvReac Chest Pain Verified 08/31/23 20:03 [From DHEA] clindamycin AdvReac muscle Verified 08/31/23 20:03 cramps clonidine AdvReac fast Verified 08/31/23 20:03 heartbeat, migraine dextromethorphan HBr AdvReac face/neck Verified 08/31/23 20:03 [From NyQuil] flushing diazepam [From Valium] AdvReac Nausea & Verified 08/31/23 20:03 Vomiting divalproex sodium AdvReac Nausea & Verified 08/31/23 20:03 [From Depakote] Vomiting doxylamine [From NyQuil] AdvReac face "beet Verified 08/31/23 20:03 red", elevated temp. ibuprofen [From Motrin] AdvReac abdominal Verified 08/31/23 20:03 & muscle cramps indomethacin [From Indocin] AdvReac Abdominal Verified 08/31/23 20:03 Pain,N/V ketorolac tromethamine AdvReac "built up Verified 08/31/23 20:03 [From Toradol] in system", had to be given something to reverse lorazepam [From Ativan] AdvReac Nausea & Verified 08/31/23 20:03 Vomiting memantine [From Namenda] AdvReac Itching Verified 08/31/23 20:03 metoclopramide HCl AdvReac muscle Verified 08/31/23 20:03 [From Reglan] cramps nortriptyline [From Pamelor] AdvReac Chest Pain Verified 08/31/23 20:03 prasterone (DHEA) [From DHEA] AdvReac Chest Pain Verified 08/31/23 20:03 prochlorperazine AdvReac leg Verified 08/31/23 20:03 [From Compazine] cramping propranolol AdvReac Chest Pain Verified 08/31/23 20:03 pseudoephedrine HCl AdvReac face "beet Verified 08/31/23 20:03 [From NyQuil] red", elevated temp. quetiapine [From Seroquel] AdvReac leg Verified 08/31/23 20:03 cramping sumatriptan [From Imitrex] AdvReac migrane Verified 08/31/23 20:03 sumatriptan succinate AdvReac migrane Verified 08/31/23 20:03 [From Imitrex] topiramate [From Topamax] AdvReac "built up Verified 08/31/23 20:03 in system", had to be given something to reverse tramadol AdvReac Nausea & Verified 08/31/23 20:03 Vomiting/LEG CRAMPS/HEART FLUTTERS trazodone AdvReac "built up Verified 08/31/23 20:03 in system", had to be given something to reverse zolpidem tartrate AdvReac "Became Verified 08/31/23 20:03 [From Ambien] violent with no memory" zonisamide [From Zonegran] AdvReac inability Verified 08/31/23 20:03 to eat artificial sweetener AdvReac SEVERE Uncoded 08/31/23 20:03 MIGRAINE HEADACHE prosyn AdvReac Itching Uncoded 08/31/23 20:03 Review of Systems ROS Statement: Those systems with pertinent positive or pertinent negative responses have been documented in the HPI. ROS Other: All systems not noted in ROS Statement are negative. Past Medical History Past Medical History: Hyperlipidemia, Hypertension, Seizure Disorder Additional Past Medical History / Comment(s): Migraines, viral meningitis x3 as a child, 1995, 2000, chronic back pain, nerve blocks 08/2016 and 12/2016. Last seizure 10/10/2020, "ABSENT SEIZURES. HX TACHYCARDIA, GBS/CIPD, PTSD. History of Any Multi-Drug Resistant Organisms: None Reported Past Surgical History: Appendectomy, Section, Cholecystectomy, Heart Catheterization, Heart Catheterization With Stent, Hernia Repair, Hysterectomy, Orthopedic Surgery, Tonsillectomy, Tubal Ligation Additional Past Surgical History / Comment(s): Hiatal Hernia, umbilical hernia repair, left rotator cuff repair, bilateral knee scopes, pain clinic procedures- occipital nerve block. abd exploratory sx(endometreosis), 3 abd scopes 1981, 1989, 1991), lumbar puncture. EGD. nerve biopsy, salvalry gland biospy Past Anesthesia/Blood Transfusion Reactions: No Reported Reaction Additional Past Anesthesia/Blood Transfusion Reaction / Comment(s): Claustrophobic Date of Last Stent Placement:: 06/03/2022 Past Psychological History: Anxiety, Bipolar, Panic Disorder, PTSD Smoking Status: Former smoker Past Alcohol Use History: None Reported Past Drug Use History: None Reported - Past Family History Mother Family Medical History: Cancer, Dementia, Diabetes Mellitus, GERD/Reflux, Hyperlipidemia, Hypertension, Thyroid Disorder Additional Family Medical History / Comment(s): CABG Father History Unknown: Yes Family Medical History: No Reported History General Exam Limitations: no limitations General appearance: alert, in no apparent distress Head exam: Present: atraumatic, normocephalic, normal inspection Eye exam: Present: normal appearance, PERRL, EOMI. Absent: scleral icterus, conjunctival injection, periorbital swelling ENT exam: Present: normal exam, mucous membranes moist Neck exam: Present: normal inspection. Absent: tenderness, meningismus, lymphadenopathy Respiratory exam: Present: normal lung sounds bilaterally. Absent: respiratory distress, wheezes, rales, rhonchi, stridor Cardiovascular Exam: Present: regular rate, normal rhythm, normal heart sounds. Absent: systolic murmur, diastolic murmur, rubs, gallop, clicks Extremities exam: Present: normal inspection, full ROM, normal capillary refill. Absent: tenderness, pedal edema, joint swelling, calf tenderness Back exam: Present: normal inspection Neurological exam: Present: alert, oriented X3, CN II-XII intact, normal gait. Absent: motor sensory deficit Psychiatric exam: Present: normal affect, normal mood Skin exam: Present: warm, dry, intact, normal color. Absent: rash Course Vital Signs 08/31/23 08/31/23 09/01/23 19:59 23:28 00:45 Temperature 97.9 F Pulse Rate 117 H 81 59 L Respiratory 16 18 16 Rate Blood Pressure 160/115 164/111 126/81 O2 Sat by Pulse 98 98 96 Oximetry Medical Decision Making - Medical Decision Making Was pt. sent in by a medical professional or institution (, PA, QUARANTINE OFFICER, urgent care, hospital, or correction...) When possible be specific @ -No Did you speak to anyone other than the patient for history (EMS, parent, family, police, friend...)? What history was obtained from this source @ -No Did you review nursing and triage notes (agree or disagree)? Why? @ -I reviewed and agree with nursing and triage notes Were old charts reviewed (outside hosp., previous admission, EMS record, old EKG, old radiological studies, urgent care reports/EKG's, correction records)? Report findings @ -No old charts were reviewed Differential Diagnosis (chest pain, altered mental status, abdominal pain women, abdominal pain men, vaginal bleeding, weakness, fever, dyspnea, syncope, headache, dizziness, GI bleed, back pain, seizure, CVA, palpatations, mental health, musculoskeletal)? @ -Differential Headache: Migraine, tension, cluster, carbon monoxide, central venous thrombosis, pension karma temporal arteritis, acute closure glaucoma, intercranial hemorrhage, mastoiditis, sinusitis, head injury, this is not meant to be an all-inclusive list. EKG interpreted by me (3pts min.). @ -none X-rays interpreted by me (1pt min.). @ -None done CT interpreted by me (1pt min.). @ -None done U/S interpreted by me (1pt. min.). @ -None done What testing was considered but not performed or refused? (CT, X-rays, U/S, labs)? Why? @ -Brain imaging considered, her symptoms today resemble her prior history of migraines with no changes What meds were considered but not given or refused? Why? @ -None Did you discuss the management of the patient with other professionals (professionals i.e. Dr., PA, QUARANTINE OFFICER, lab, RT, psych nurse, social sciences lecturer, supervisor compounding and finishing, teacher, loan officer assistant, welfare case worker)? Give summary @ -No Was smoking cessation discussed for >3mins.? @ -No Was critical care preformed (if so, how long)? @ -No Were there social determinants of health that impacted care today? How? (Homelessness, low income, unemployed, alcoholism, drug addiction, transportation, low edu. Level, literacy, decrease access to med. care, shelter, rehab)? @ -No Was there de-escalation of care discussed even if they declined (Discuss DNR or withdrawal of care, Hospice)? DNR status @ -No What co-morbidities impacted this encounter? (DM, HTN, Smoking, COPD, CAD, Cancer, CVA, ARF, Chemo, Hep., AIDS, mental health diagnosis, sleep apnea, morbid obesity)? @ -None Was patient admitted / discharged? Hospital course, mention meds given and route, prescriptions, significant lab abnormalities, going to OR and other pertinent info. @ -Discharged. Patient presented to the emergency department for evaluation of migraine headache. Symptoms consistent with her migraines in the past. CT considered, patient has no new concerning red flag symptoms, normal neurological examination. Patient provided migraine cocktail in the emergency department. Symptoms improved and she will be discharged home. Patient understanding agreeable plan. Patient stable at time of discharge. Case discussed with Dr. Hein Undiagnosed new problem with uncertain prognosis? @ -No Drug Therapy requiring intensive monitoring for toxicity (Heparin, Nitro, Insulin, Cardizem)? @ -No Were any procedures done? @ -No Diagnosis/symptom? @ -Migraine Acute, or Chronic, or Acute on Chronic? @ -Acute Uncomplicated (without systemic symptoms) or Complicated (systemic symptoms)? @ -Uncomplicated Side effects of treatment? @ -No Exacerbation, Progression, or Severe Exacerbation? @ -No Poses a threat to life or bodily function? How? (Chest pain, [place], [place], pneumonia, PE, COPD, DKA, ARF, appy, cholecystitis, CVA, Diverticulitis, Homicidal, Suicidal, threat to staff... and all critical care pts) @ -No Disposition Clinical Impression: Migraine Disposition: HOME SELF-CARE Condition: Stable Instructions (If sedation given, give patient instructions): Acute Headache (ED) Additional Instructions: Please follow up with your primary care provider. Return to the emergency department for new or worsening symptoms. Is patient prescribed a controlled substance at d/c from ED?: No Referrals: José Reece MD [Primary Care Provider] - 1-2 days
[2023-08-31] MEDS: HYDROmorphone 1 MG/ML 1 ML SYRINGE IVP STA (23:18)
[2023-08-31] MEDS: diphenhydrAMINE 50 MG/ML 1 ML VIAL IVP STA (23:18)
[2023-08-31] MEDS: SODIUM CHLORIDE 0.9% 1,000 ML IV ONE (23:19)
[2023-09-01 01:56] VITALS: BP 126/81; PULSE 59; RESP 16
== END 2023-09-01 00:45 | disposition home or self-care (01) ==
LOC: EC 19:57
DX: G43.909 Migraine, unspecified, not intractable, without status migrainosus (principal); Z87.891 Personal history of nicotine dependence; Z88.0 Allergy status to penicillin; Z88.1 Allergy status to other antibiotic agents; Z88.2 Allergy status to sulfonamides; Z88.5 Allergy status to narcotic agent; Z88.6 Allergy status to analgesic agent; Z91.040 Latex allergy status; Z88.8 Allergy status to other drugs, medicaments and biological substances
CPT/HCPCS: 99284; 96374; 96375 ×3; 96361; 99283; J2270; J1200; J2405; J1170

== ENCOUNTER 2023-09-07 14:59 | Emergency (ER) | payer OTHER ==
--- NOTE | 2023-09-07 16:17 | ED ---
General Adult HPI - General Chief complaint: Head Injury Stated complaint: passed out smacked head Time Seen by Provider: 09/07/23 15:53 Source: patient, RN notes reviewed, old records reviewed Mode of arrival: ambulatory Limitations: no limitations - History of Present Illness Initial comments: Patient is a 53-year-old female present to the emergency department with headache. Patient did have headache today and did fall back. Patient believes she did strike her head on the front however has headache in the back. Patient has chronic headaches however wonders if this might be a little bit different. Patient unclear if she lost consciousness. Patient does have history of previous similar syncopal episodes numerous times. - Related Data Home Medications Medication Instructions Recorded Confirmed Omeprazole [PriLOSEC] 20 mg PO HS 12/15/20 09/07/23 Thiamine [Vitamin B-1] 100 mg PO HS 01/04/21 09/07/23 Atorvastatin [Lipitor] 40 mg PO HS 07/20/21 09/07/23 DULoxetine HCL [Cymbalta] 60 mg PO HS 07/20/21 09/07/23 Atogepant [Qulipta] 60 mg PO HS 06/03/22 09/07/23 Cyclobenzaprine [Flexeril] 10 mg PO TID PRN 06/03/22 09/07/23 HYDROcodone/APAP 10-325MG [[place] 1 tab PO TID PRN 06/03/22 09/07/23 10-325] Aspirin 81 mg PO HS 08/29/22 09/07/23 Clopidogrel [Plavix] 75 mg PO HS 08/29/22 09/07/23 Hyoscyamine Sulfate [Levsin-Sl] 0.125 mg SL HS 08/29/22 09/07/23 Cyanocobalamin (Vitamin B-12) 2,000 mcg PO HS 09/07/23 09/07/23 [Vitamin B-12] Linaclotide [Linzess] 145 mcg PO HS 09/07/23 09/07/23 Multivitamins, Thera [Multivitamin 1 tab PO HS 09/07/23 09/07/23 (formulary)] Pantoprazole Sodium [Protonix] 40 mg PO HS 09/07/23 09/07/23 Potassium Gluconate 99 mg PO HS 09/07/23 09/07/23 Pregabalin [Lyrica] 75 mg PO BID 09/07/23 09/07/23 Sennosides [Senokot] 8.6 mg PO BID 09/07/23 09/07/23 Simethicone Chew [Mylicon Chew] 80 mg PO Q4H PRN 09/07/23 09/07/23 Sucralfate [Carafate] 1 gm PO HS 09/07/23 09/07/23 Zavegepant HCl [Zavzpret] 1 spray NASAL DAILY PRN 09/07/23 09/07/23 bisacodyL [Dulcolax] 10 mg RECTAL HS PRN 09/07/23 09/07/23 polyethylene glycoL 3350 [Miralax] 17 gm PO BID 09/07/23 09/07/23 Allergies Allergy/AdvReac Type Severity Reaction Status Date / Time dihydroergotamine Allergy Unknown Unknown Verified 09/07/23 19:48 [From Migranal] buprenorphine Allergy Rash/Hives Verified 09/07/23 19:48 gabapentin [From Neurontin] Allergy Itching/Swe Verified 09/07/23 19:48 lling latex Allergy Anaphylaxis Verified 09/07/23 19:48 naproxen [From Naprosyn] Allergy Anaphylaxis Verified 09/07/23 19:48 Penicillins Allergy Anaphylaxis Verified 09/07/23 19:48 prednisone Allergy Swelling Verified 09/07/23 19:48 quetiapine fumarate Allergy Itching, Verified 09/07/23 19:48 [From Seroquel] leg cramps rofecoxib [From Vioxx] Allergy Itching, Verified 09/07/23 19:48 leg cramps terfenadine [From Seldane] Allergy Rash/Hives Verified 09/07/23 19:48 vancomycin Allergy Rash/Hives/Swelling Verified 09/07/23 19:48 @IV site calcium carbonate [From DHEA] AdvReac Chest Pain Verified 09/07/23 19:48 calcium phosphate,dibasic AdvReac Chest Pain Verified 09/07/23 19:48 [From DHEA] clindamycin AdvReac muscle Verified 09/07/23 19:48 cramps clonidine AdvReac fast Verified 09/07/23 19:48 heartbeat, migraine dextromethorphan HBr AdvReac face/neck Verified 09/07/23 19:48 [From NyQuil] flushing diazepam [From Valium] AdvReac Nausea & Verified 09/07/23 19:48 Vomiting divalproex sodium AdvReac Nausea & Verified 09/07/23 19:48 [From Depakote] Vomiting doxylamine [From NyQuil] AdvReac face "beet Verified 09/07/23 19:48 red", elevated temp. ibuprofen [From Motrin] AdvReac abdominal Verified 09/07/23 19:48 & muscle cramps indomethacin [From Indocin] AdvReac Abdominal Verified 09/07/23 19:48 Pain,N/V ketorolac tromethamine AdvReac "built up Verified 09/07/23 19:48 [From Toradol] in system", had to be given something to reverse lorazepam [From Ativan] AdvReac Nausea & Verified 09/07/23 19:48 Vomiting memantine [From Namenda] AdvReac Itching Verified 09/07/23 19:48 metoclopramide HCl AdvReac muscle Verified 09/07/23 19:48 [From Reglan] cramps nortriptyline [From Pamelor] AdvReac Chest Pain Verified 09/07/23 19:48 prasterone (DHEA) [From DHEA] AdvReac Chest Pain Verified 09/07/23 19:48 prochlorperazine AdvReac leg Verified 09/07/23 19:48 [From Compazine] cramping propranolol AdvReac Chest Pain Verified 09/07/23 19:48 pseudoephedrine HCl AdvReac face "beet Verified 09/07/23 19:48 [From NyQuil] red", elevated temp. quetiapine [From Seroquel] AdvReac leg Verified 09/07/23 19:48 cramping sumatriptan [From Imitrex] AdvReac migrane Verified 09/07/23 19:48 sumatriptan succinate AdvReac migrane Verified 09/07/23 19:48 [From Imitrex] topiramate [From Topamax] AdvReac "built up Verified 09/07/23 19:48 in system", had to be given something to reverse tramadol AdvReac Nausea & Verified 09/07/23 19:48 Vomiting/LEG CRAMPS/HEART FLUTTERS trazodone AdvReac "built up Verified 09/07/23 19:48 in system", had to be given something to reverse zolpidem tartrate AdvReac "Became Verified 09/07/23 19:48 [From Ambien] violent with no memory" zonisamide [From Zonegran] AdvReac inability Verified 09/07/23 19:48 to eat artificial sweetener AdvReac SEVERE Uncoded 09/07/23 19:48 MIGRAINE HEADACHE prosyn AdvReac Itching Uncoded 09/07/23 19:48 Review of Systems ROS Statement: Those systems with pertinent positive or pertinent negative responses have been documented in the HPI. ROS Other: All systems not noted in ROS Statement are negative. Constitutional: Denies: fever Eyes: Denies: eye pain ENT: Denies: ear pain Respiratory: Denies: cough, dyspnea Cardiovascular: Denies: chest pain Gastrointestinal: Denies: abdominal pain Neurological: Reports: as per HPI, weakness Past Medical History Past Medical History: Hyperlipidemia, Hypertension, Seizure Disorder Additional Past Medical History / Comment(s): Migraines, viral meningitis x3 as a child, 1995, 2000, chronic back pain, nerve blocks 08/2016 and 12/2016. Last seizure 10/10/2020, "ABSENT SEIZURES. HX TACHYCARDIA, GBS/CIPD, PTSD. History of Any Multi-Drug Resistant Organisms: None Reported Past Surgical History: Appendectomy, Section, Cholecystectomy, Heart Catheterization, Heart Catheterization With Stent, Hernia Repair, Hysterectomy, Orthopedic Surgery, Tonsillectomy, Tubal Ligation Additional Past Surgical History / Comment(s): Hiatal Hernia, umbilical hernia repair, left rotator cuff repair, bilateral knee scopes, pain clinic procedures- occipital nerve block. abd exploratory sx(endometreosis), 3 abd scopes 1981, 1989, 1991), lumbar puncture. EGD. nerve biopsy, salvalry gland biospy Past Anesthesia/Blood Transfusion Reactions: No Reported Reaction Additional Past Anesthesia/Blood Transfusion Reaction / Comment(s): Claustrophobic Date of Last Stent Placement:: 06/03/2022 Past Psychological History: Anxiety, Bipolar, Panic Disorder, PTSD Smoking Status: Former smoker Past Alcohol Use History: None Reported Past Drug Use History: None Reported - Past Family History Mother Family Medical History: Cancer, Dementia, Diabetes Mellitus, GERD/Reflux, Hyperlipidemia, Hypertension, Thyroid Disorder Additional Family Medical History / Comment(s): CABG Father History Unknown: Yes Family Medical History: No Reported History General Exam Limitations: no limitations General appearance: alert, in no apparent distress Head exam: Present: atraumatic, normocephalic Eye exam: Present: normal appearance, PERRL, EOMI Neck exam: Present: normal inspection. Absent: tenderness Respiratory exam: Present: normal lung sounds bilaterally Cardiovascular Exam: Present: regular rate, normal rhythm, normal heart sounds GI/Abdominal exam: Present: soft. 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) Eye Response: (4) open spontaneously Motor Response: (6) obeys commands Verbal Response: (5) oriented Psychiatric exam: Present: normal affect, normal mood Skin exam: Present: normal color Course Vital Signs 09/07/23 09/07/23 09/07/23 15:46 16:01 18:14 Temperature 98.3 F 98.9 F Pulse Rate 104 H 88 105 H Respiratory 18 16 20 Rate Blood Pressure 171/81 173/130 171/130 O2 Sat by Pulse 97 99 99 Oximetry 09/07/23 09/07/23 20:06 20:37 Temperature Pulse Rate 93 Respiratory 16 Rate Blood Pressure 149/111 155/105 O2 Sat by Pulse 98 Oximetry EKG Findings - EKG Results: EKG: interpreted by ERMD, sinus rhythm, normal axis, normal QRS, normal ST/T Medical Decision Making - Medical Decision Making Was pt. sent in by a medical professional or institution (, PA, PHYSIATRIST, urgent care, hospital, or care home...) When possible be specific @ -[No] Did you speak to anyone other than the patient for history (EMS, parent, family, police, friend...)? What history was obtained from this source @ -[No] Did you review nursing and triage notes (agree or disagree)? Why? @ -[I reviewed and agree with nursing and triage notes] Were old charts reviewed (outside hosp., previous admission, EMS record, old EKG, old radiological studies, urgent care reports/EKG's, care home records)? Report findings @ -Previous blood pressures reviewed. Many of them similar to today. Differential Diagnosis (chest pain, altered mental status, abdominal pain women, abdominal pain men, vaginal bleeding, weakness, fever, dyspnea, syncope, headache, dizziness, GI bleed, back pain, seizure, CVA, palpatations, mental health, musculoskeletal)? @ -Differential Headache: Migraine, tension, cluster, carbon monoxide, central venous thrombosis, pension karma temporal arteritis, acute closure glaucoma, intercranial hemorrhage, mastoiditis, sinusitis, head injury, this is not meant to be an all-inclusive list. EKG interpreted by me (3pts min.). @ -[As above] X-rays interpreted by me (1pt min.). @ -[None done] CT interpreted by me (1pt min.). @ -CT brain and CTA did not reveal acute abnormality U/S interpreted by me (1pt. min.). @ -[None done] What testing was considered but not performed or refused? (CT, X-rays, U/S, labs)? Why? @ -[None] What meds were considered but not given or refused? Why? @ -[None] Did you discuss the management of the patient with other professionals (professionals i.e. , PA, PHYSIATRIST, lab, RT, psych nurse, social media marketer, art instructor, teacher, psychological operations officer, disease case manager)? Give summary @ -Discussed with practitioner Ramona Reece. She feels a potassium is somewhat elevated on recheck patient can be discharged and follow- up. Was smoking cessation discussed for >3mins.? @ -[No] Was critical care preformed (if so, how long)? @ -[No] Were there social determinants of health that impacted care today? How? (Homelessness, low income, unemployed, alcoholism, drug addiction, transportation, low edu. Level, literacy, decrease access to med. care, prison, rehab)? @ -[No] Was there de-escalation of care discussed even if they declined (Discuss DNR or withdrawal of care, Hospice)? DNR status @ -[No] What co-morbidities impacted this encounter? (DM, HTN, Smoking, COPD, CAD, Cancer, CVA, ARF, Chemo, Hep., AIDS, mental health diagnosis, sleep apnea, morbid obesity)? @ -[None] Was patient admitted / discharged? Hospital course, mention meds given and route, prescriptions, significant lab abnormalities, going to OR and other pertinent info. @ -Patient presents with headache and syncope. Patient has chronic symptoms of both. Patient does have low potassium and this has been replaced. Blood pressure medication provided. Patient states her blood pressure is chronically high and this is actually good for her. Patient will be discharged with close follow-up with primary care physician. Patient states he is supposed to be on Norvasc however has not started it yet. Undiagnosed new problem with uncertain prognosis? @ -[No] Drug Therapy requiring intensive monitoring for toxicity (Heparin, Nitro, Insulin, Cardizem)? @ -[No] Were any procedures done? @ -[No] Diagnosis/symptom? @ -Headache, hypertension Acute, or Chronic, or Acute on Chronic? @ -Acute on chronic, chronic Uncomplicated (without systemic symptoms) or Complicated (systemic symptoms)? @ -[default] Side effects of treatment? @ -[No] Exacerbation, Progression, or Severe Exacerbation? @ -[No] Poses a threat to life or bodily function? How? (Chest pain, [place], [place], pneumonia, PE, COPD, DKA, ARF, appy, cholecystitis, CVA, Diverticulitis, Homicidal, Suic idal, threat to staff... and all critical care pts) @ -Threat to organ dysfunction - Lab Data Result diagrams: 09/07/23 16:35 09/07/23 20:00 Lab Results 09/07/23 09/07/23 09/07/23 Range/Units 16:35 16:35 16:35 WBC 6.5 (3.8-10.6) k/uL RBC 4.02 (3.80-5.40) m/uL Hgb 12.1 (11.4-16.0) gm/dL Hct 37.4 (34.0-46.0) % MCV 93.0 (80.0-100.0) fL MCH 30.1 (25.0-35.0) pg MCHC 32.4 (31.0-37.0) g/dL RDW 15.1 (11.5-15.5) % Plt Count 266 (150-450) k/uL MPV 8.8 Neutrophils % 75 % Lymphocytes % 17 % Monocytes % 5 % Eosinophils % 1 % Basophils % 1 % Neutrophils # 4.8 (1.3-7.7) k/uL Lymphocytes # 1.1 (1.0-4.8) k/uL Monocytes # 0.3 (0-1.0) k/uL Eosinophils # 0.0 (0-0.7) k/uL Basophils # 0.0 (0-0.2) k/uL PT 10.4 (10.0-12.5) sec INR 0.9 (<1.2) APTT 23.0 (22.0-30.0) sec Sodium 139 (137-145) mmol/L Potassium 2.6 L* (3.5-5.1) mmol/L Chloride 107 (98-107) mmol/L Carbon Dioxide 28 (22-30) mmol/L Anion Gap 4 mmol/L BUN 6 L (7-17) mg/dL Creatinine 0.80 (0.52-1.04) mg/dL Est GFR (CKD-EPI)AfAm >90 (>60 ml/min/1.73 sqM) Est GFR (CKD-EPI)NonAf 86 (>60 ml/min/1.73 sqM) Glucose 103 H (74-99) mg/dL Calcium 8.6 (8.4-10.2) mg/dL Total Bilirubin 0.4 (0.2-1.3) mg/dL AST 42 H (14-36) U/L ALT 36 H (4-34) U/L Alkaline Phosphatase 140 H (38-126) U/L Total Protein 5.9 L (6.3-8.2) g/dL Albumin 3.3 L (3.5-5.0) g/dL 09/07/23 Range/Units 20:00 WBC (3.8-10.6) k/uL RBC (3.80-5.40) m/uL Hgb (11.4-16.0) gm/dL Hct (34.0-46.0) % MCV (80.0-100.0) fL MCH (25.0-35.0) pg MCHC (31.0-37.0) g/dL RDW (11.5-15.5) % Plt Count (150-450) k/uL MPV Neutrophils % % Lymphocytes % % Monocytes % % Eosinophils % % Basophils % % Neutrophils # (1.3-7.7) k/uL Lymphocytes # (1.0-4.8) k/uL Monocytes # (0-1.0) k/uL Eosinophils # (0-0.7) k/uL Basophils # (0-0.2) k/uL PT (10.0-12.5) sec INR (<1.2) APTT (22.0-30.0) sec Sodium (137-145) mmol/L Potassium 3.0 L (3.5-5.1) mmol/L Chloride (98-107) mmol/L Carbon Dioxide (22-30) mmol/L Anion Gap mmol/L BUN (7-17) mg/dL Creatinine (0.52-1.04) mg/dL Est GFR (CKD-EPI)AfAm (>60 ml/min/1.73 sqM) Est GFR (CKD-EPI)NonAf (>60 ml/min/1.73 sqM) Glucose (74-99) mg/dL Calcium (8.4-10.2) mg/dL Total Bilirubin (0.2-1.3) mg/dL AST (14-36) U/L ALT (4-34) U/L Alkaline Phosphatase (38-126) U/L Total Protein (6.3-8.2) g/dL Albumin (3.5-5.0) g/dL Disposition Clinical Impression: Headache, Hypertension Disposition: HOME SELF-CARE Condition: Stable Instructions (If sedation given, give patient instructions): Hypertension (ED), Acute Headache (ED), Syncope (ED) Additional Instructions: Please do follow-up with primary care physician tomorrow. Return for increased headache, weakness, passing out, increased blood pressure, worsening symptoms or other concerns. Please discuss with your doctor regarding blood pressure. Have primary care physician recheck potassium level Is patient prescribed a controlled substance at d/c from ED?: No Referrals: José Reece MD [Primary Care Provider] - 1-2 days Time of Disposition: 20:46
[2023-09-07 16:29] VITALS: TEMP 98.9
[2023-09-07 16:48] LABS: Basophils % (A) 1 %; Eosinophils % (A) 1 %; HCT 37.4 % (34.0-46.0); HGB 12.1 gm/dL (11.4-16.0); Lymphocytes # (A) 1.1 k/uL (1.0-4.8); Lymphocytes % (A) 17 %; MCH 30.1 pg (25.0-35.0); MCHC 32.4 g/dL (31.0-37.0); Mean Platelet Volume 8.8; Monocytes # (A) 0.3 k/uL (0-1.0); Monocytes % (A) 5 %; Neutrophils # (A) 4.8 k/uL (1.3-7.7); Neutrophils % (A) 75 %; Platelet Count 266 k/uL (150-450); RBC 4.02 m/uL (3.80-5.40); RDW 15.1 % (11.5-15.5); WBC 6.5 k/uL (3.8-10.6)
[2023-09-07 16:58] LABS: INR 0.9 (<1.2); Prothrombin Time 10.4 sec (10.0-12.5)
[2023-09-07] MEDS: SODIUM CHLORIDE 0.9% 1,000 ML IV STA (17:06)
[2023-09-07] MEDS: ACETAMINOPHEN IV (For NPO) 1,000 MG in EMPTY BAG 1 BAG IVPB STA (17:06)
[2023-09-07 17:09] LABS: ALT 36 U/L (4-34); AST 42 U/L (14-36); African American GFR (CKD) >90 (>60 ml/min/1.73 sqM); Albumin 3.3 g/dL (3.5-5.0); Alkaline Phosphatase 140 U/L (38-126); Anion Gap 4 mmol/L; Blood Urea Nitrogen 6 mg/dL (7-17); Calcium 8.6 mg/dL (8.4-10.2); Carbon Dioxide 28 mmol/L (22-30); Chloride 107 mmol/L (98-107); Glucose 103 mg/dL (74-99); Non-African American GFR(CKD) 86 (>60 ml/min/1.73 sqM); Sodium 139 mmol/L (137-145); Total Bilirubin 0.4 mg/dL (0.2-1.3); Total Protein 5.9 g/dL (6.3-8.2)
[2023-09-07 17:48] LABS: Potassium 2.6 mmol/L (3.5-5.1)
--- NOTE | 2023-09-07 18:19 | CT ---
EXAMINATION TYPE: CT brain wo con DATE OF EXAM: 09/07/2023 COMPARISON: 07/11/2023 INDICATION: syncope DLP: 1107.6 mGycm, Automated exposure control for dose reduction was used. CONTRAST: None CT of the brain is performed utilizing 3 mm thick sections through the posterior fossa and 3 mm thick sections through the remaining calvarium. Study is performed within 24 hours of arrival to the hosp ital. No abnormal hyperdensity is present to suggest an acute intracranial hemorrhage. No mass lesion is evident. No acute infarcts are evident. Ventricles and sulci are appropriate for the patient age. Paranasal sinuses and mastoid air cells within the [id number] are clear. Appears to be opacificati on through the nasal passages. IMPRESSION: 1. No acute intracranial process. Follow-up MRI can be performed as clinically indicated.
--- NOTE | 2023-09-07 18:28 | CT ---
EXAMINATION TYPE: CT angio head DATE OF EXAM: 09/07/2023 HISTORY: syncope COMPARISON: None CT DLP: 200.4 mGycm. Automated Exposure Control for Dose Reduction was Utilized. TECHNIQUE: CTA scan of the neck is performed with IV Contrast, patient injected with 65cc mL of Isov ue 370, axial images are obtained, coronal and sagittal reformatted images are reviewed. Three-D linnea nstructed images are created on an independent workstation and reviewed. Source images are reviewed. FINDINGS: Cervical of [place]: Vertebral basilar system appears normal. Posterior cerebral vasculature is unrema rkable. Internal carotid arteries bifurcate normally into A1 and M1 segments. A2 segments are normal. The anterior communicating artery is patent. Posterior communicating arteries are absent Other: IMPRESSION: 1. Normal [place] of [place] NASCET criteria was used in interpretation of this exam?
[2023-09-07] MEDS: POTASSIUM CHLORIDE ER 20 MEQ TAB.ER PO STA (18:58)
[2023-09-07] MEDS: POTASSIUM CHLORIDE 10 MEQ in WATER FOR INJECTION 1 100ML.BAG IVPB STA (18:59)
[2023-09-07] MEDS: HYDROmorphone 1 MG/ML 1 ML SYRINGE IVP STA (19:23)
[2023-09-07] MEDS: hydroCHLOROthiazide 25 MG TAB PO STA (19:39)
[2023-09-07] MEDS: amLODIPine 5 MG TAB PO STA (21:25)
[2023-09-07 22:17] VITALS: BP 160/104; PULSE 104; RESP 18
== END 2023-09-07 21:40 | disposition home or self-care (01) ==
LOC: EC 14:59
DX: R51.9 Headache, unspecified (principal); I10 Essential (primary) hypertension; Z87.891 Personal history of nicotine dependence; Z88.1 Allergy status to other antibiotic agents; Z88.0 Allergy status to penicillin; Z88.2 Allergy status to sulfonamides; Z88.5 Allergy status to narcotic agent; Z88.6 Allergy status to analgesic agent; Z88.8 Allergy status to other drugs, medicaments and biological substances; Z91.040 Latex allergy status; W19.XXXA Unspecified fall, initial encounter
CPT/HCPCS: 36415; 93005; 80053; 84132; 85025; 85610; 85730; 70496; 70450; 99285; 96365; 96367; 96366; 96375; 96361; J1170; J3480; J0131; Q9967

== ENCOUNTER 2023-09-08 13:47 | Emergency (ER) | payer OTHER ==
[2023-09-08 14:09] VITALS: TEMP 99
--- NOTE | 2023-09-08 14:29 | ED ---
Recheck HPI - General Chief Complaint: Fall Stated Complaint: Fall-recheck Time Seen by Provider: 09/08/23 14:23 Source: patient, RN notes reviewed, old records reviewed Mode of arrival: ambulatory Limitations: no limitations - History of Present Illness Initial Comments: QN-53 female for recheck evaluation headache from syncopal event with head injury. Patient is having severe headache here in the ER with nausea and vomiting This is a 53-year-old female to the ER for evaluation. Patient seen and evaluated here in the emergency department yesterday for syncopal event fall fall with head injury. Patient is having persistent and severe headache here in the ER today MD Complaint: medication refill request -: days(s) Returns Today for: persistent/worsening pain related to initial visit Symptoms Since Prior Visit: worsening pain Context: planned re-check Associated Symptoms: none Treatments Prior to Arrival: Given Pain Meds on - Related Data Home Medications Medication Instructions Recorded Confirmed Omeprazole [PriLOSEC] 20 mg PO HS 12/15/20 09/07/23 Thiamine [Vitamin B-1] 100 mg PO HS 01/04/21 09/07/23 Atorvastatin [Lipitor] 40 mg PO HS 07/20/21 09/07/23 DULoxetine HCL [Cymbalta] 60 mg PO HS 07/20/21 09/07/23 Atogepant [Qulipta] 60 mg PO HS 06/03/22 09/07/23 Cyclobenzaprine [Flexeril] 10 mg PO TID PRN 06/03/22 09/07/23 HYDROcodone/APAP 10-325MG [[place] 1 tab PO TID PRN 06/03/22 09/07/23 10-325] Aspirin 81 mg PO HS 08/29/22 09/07/23 Clopidogrel [Plavix] 75 mg PO HS 08/29/22 09/07/23 Hyoscyamine Sulfate [Levsin-Sl] 0.125 mg SL HS 08/29/22 09/07/23 Cyanocobalamin (Vitamin B-12) 2,000 mcg PO HS 09/07/23 09/07/23 [Vitamin B-12] Linaclotide [Linzess] 145 mcg PO HS 09/07/23 09/07/23 Multivitamins, Thera [Multivitamin 1 tab PO HS 09/07/23 09/07/23 (formulary)] Pantoprazole Sodium [Protonix] 40 mg PO HS 09/07/23 09/07/23 Potassium Gluconate 99 mg PO HS 09/07/23 09/07/23 Pregabalin [Lyrica] 75 mg PO BID 09/07/23 09/07/23 Sennosides [Senokot] 8.6 mg PO BID 09/07/23 09/07/23 Simethicone Chew [Mylicon Chew] 80 mg PO Q4H PRN 09/07/23 09/07/23 Sucralfate [Carafate] 1 gm PO HS 09/07/23 09/07/23 Zavegepant HCl [Zavzpret] 1 spray NASAL DAILY PRN 09/07/23 09/07/23 bisacodyL [Dulcolax] 10 mg RECTAL HS PRN 09/07/23 09/07/23 polyethylene glycoL 3350 [Miralax] 17 gm PO BID 09/07/23 09/07/23 Allergies Allergy/AdvReac Type Severity Reaction Status Date / Time dihydroergotamine Allergy Unknown Unknown Verified 09/07/23 19:48 [From Migranal] buprenorphine Allergy Rash/Hives Verified 09/07/23 19:48 gabapentin [From Neurontin] Allergy Itching/Swe Verified 09/07/23 19:48 lling latex Allergy Anaphylaxis Verified 09/07/23 19:48 naproxen [From Naprosyn] Allergy Anaphylaxis Verified 09/07/23 19:48 Penicillins Allergy Anaphylaxis Verified 09/07/23 19:48 prednisone Allergy Swelling Verified 09/07/23 19:48 quetiapine fumarate Allergy Itching, Verified 09/07/23 19:48 [From Seroquel] leg cramps rofecoxib [From Vioxx] Allergy Itching, Verified 09/07/23 19:48 leg cramps terfenadine [From Seldane] Allergy Rash/Hives Verified 09/07/23 19:48 vancomycin Allergy Rash/Hives/Swelling Verified 09/07/23 19:48 @IV site calcium carbonate [From DHEA] AdvReac Chest Pain Verified 09/07/23 19:48 calcium phosphate,dibasic AdvReac Chest Pain Verified 09/07/23 19:48 [From DHEA] clindamycin AdvReac muscle Verified 09/07/23 19:48 cramps clonidine AdvReac fast Verified 09/07/23 19:48 heartbeat, migraine dextromethorphan HBr AdvReac face/neck Verified 09/07/23 19:48 [From NyQuil] flushing diazepam [From Valium] AdvReac Nausea & Verified 09/07/23 19:48 Vomiting divalproex sodium AdvReac Nausea & Verified 09/07/23 19:48 [From Depakote] Vomiting doxylamine [From NyQuil] AdvReac face "beet Verified 09/07/23 19:48 red", elevated temp. ibuprofen [From Motrin] AdvReac abdominal Verified 09/07/23 19:48 & muscle cramps indomethacin [From Indocin] AdvReac Abdominal Verified 09/07/23 19:48 Pain,N/V ketorolac tromethamine AdvReac "built up Verified 09/07/23 19:48 [From Toradol] in system", had to be given something to reverse lorazepam [From Ativan] AdvReac Nausea & Verified 09/07/23 19:48 Vomiting memantine [From Namenda] AdvReac Itching Verified 09/07/23 19:48 metoclopramide HCl AdvReac muscle Verified 09/07/23 19:48 [From Reglan] cramps nortriptyline [From Pamelor] AdvReac Chest Pain Verified 09/07/23 19:48 prasterone (DHEA) [From DHEA] AdvReac Chest Pain Verified 09/07/23 19:48 prochlorperazine AdvReac leg Verified 09/07/23 19:48 [From Compazine] cramping propranolol AdvReac Chest Pain Verified 09/07/23 19:48 pseudoephedrine HCl AdvReac face "beet Verified 09/07/23 19:48 [From NyQuil] red", elevated temp. quetiapine [From Seroquel] AdvReac leg Verified 09/07/23 19:48 cramping sumatriptan [From Imitrex] AdvReac migrane Verified 09/07/23 19:48 sumatriptan succinate AdvReac migrane Verified 09/07/23 19:48 [From Imitrex] topiramate [From Topamax] AdvReac "built up Verified 09/07/23 19:48 in system", had to be given something to reverse tramadol AdvReac Nausea & Verified 09/07/23 19:48 Vomiting/LEG CRAMPS/HEART FLUTTERS trazodone AdvReac "built up Verified 09/07/23 19:48 in system", had to be given something to reverse zolpidem tartrate AdvReac "Became Verified 09/07/23 19:48 [From Ambien] violent with no memory" zonisamide [From Zonegran] AdvReac inability Verified 09/07/23 19:48 to eat artificial sweetener AdvReac SEVERE Uncoded 09/07/23 19:48 MIGRAINE HEADACHE prosyn AdvReac Itching Uncoded 09/07/23 19:48 Review of Systems ROS Statement: Those systems with pertinent positive or pertinent negative responses have been documented in the HPI. ROS Other: All systems not noted in ROS Statement are negative. Past Medical History Past Medical History: Hyperlipidemia, Hypertension, Seizure Disorder Additional Past Medical History / Comment(s): Migraines, viral meningitis x3 as a child, 1995, 2000, chronic back pain, nerve blocks 08/2016 and 12/2016. Last seizure 10/10/2020, "ABSENT SEIZURES. HX TACHYCARDIA, GBS/CIPD, PTSD. History of Any Multi-Drug Resistant Organisms: None Reported Past Surgical History: Appendectomy, Section, Cholecystectomy, Heart Catheterization, Heart Catheterization With Stent, Hernia Repair, Hysterectomy, Orthopedic Surgery, Tonsillectomy, Tubal Ligation Additional Past Surgical History / Comment(s): Hiatal Hernia, umbilical hernia repair, left rotator cuff repair, bilateral knee scopes, pain clinic procedures- occipital nerve block. abd exploratory sx(endometreosis), 3 abd scopes 1981, 1989, 1991), lumbar puncture. EGD. nerve biopsy, salvalry gland biospy Past Anesthesia/Blood Transfusion Reactions: No Reported Reaction Additional Past Anesthesia/Blood Transfusion Reaction / Comment(s): Claustrophobic Date of Last Stent Placement:: 06/03/2022 Past Psychological History: Anxiety, Bipolar, Panic Disorder, PTSD Smoking Status: Former smoker Past Alcohol Use History: None Reported Past Drug Use History: None Reported - Past Family History Mother Family Medical History: Cancer, Dementia, Diabetes Mellitus, GERD/Reflux, Hyperlipidemia, Hypertension, Thyroid Disorder Additional Family Medical History / Comment(s): CABG Father History Unknown: Yes Family Medical History: No Reported History General Exam Limitations: no limitations General appearance: alert, in no apparent distress Head exam: Present: atraumatic, normocephalic, normal inspection Eye exam: Present: normal appearance, PERRL, EOMI. Absent: scleral icterus, conjunctival injection, periorbital swelling ENT exam: Present: normal exam, mucous membranes moist Neck exam: Present: normal inspection. Absent: tenderness, meningismus, lymphadenopathy Respiratory exam: Present: normal lung sounds bilaterally. Absent: respiratory distress, wheezes, rales, rhonchi, stridor Cardiovascular Exam: Present: regular rate, normal rhythm, normal heart sounds. Absent: systolic murmur, diastolic murmur, rubs, gallop, clicks GI/Abdominal exam: Present: soft, normal bowel sounds. Absent: distended, tenderness, guarding, rebound, rigid Extremities exam: Present: normal inspection, full ROM, normal capillary refill. Absent: tenderness, pedal edema, joint swelling, calf tenderness Back exam: Present: normal inspection Neurological exam: Present: alert, oriented X3, CN II-XII intact Psychiatric exam: Present: normal affect, normal mood Skin exam: Present: warm, dry, intact, normal color. Absent: rash Course Vital Signs 09/08/23 09/08/23 14:05 16:15 Temperature 99.0 F Pulse Rate 120 H 78 Respiratory 20 18 Rate Blood Pressure 158/111 162/94 O2 Sat by Pulse 100 94 L Oximetry - Reevaluation(s) Reevaluation #1: 09/08/23 14:28 QN completed by myself Dr An. 09/08/23 14:30 Patient informed of results and questions answered Reevaluation #2: 09/08/23 14:29 Patient symptoms are improved here in the ER Reevaluation #3: 09/08/23 14:30 Patient informed of results questions answered Reevaluation #4: Was pt. sent in by a medical professional or institution (, PA, CORRESPONDENCE SECTION SUPERVISOR, urgent care, hospital, or jail...) When possible be specific @ -no Did you speak to anyone other than the patient for history (EMS, parent, family, police, friend...)? What history was obtained from this source @ -no Did you review nursing and triage notes (agree or disagree)? Why? @ -agree Are old charts reviewed (outside hosp., previous admission, EMS record, old EKG, old radiological studies, urgent care reports/EKG's, jail records)? Report findings @ -yes Differential Diagnosis (chest pain, altered mental status, abdominal pain women, abdominal pain men, vaginal bleeding, weakness, fever, dyspnea, syncope, headache, dizziness, GI bleed, back pain, seizure, CVA, palpatations, mental health, musculoskeletal)? @ -prior EKG interpreted by me (3pts min.). @ -no X-rays interpreted by me (1pt min.). @ -no CT interpreted by me (1pt min.). @ -no U/S interpreted by me (1pt. min.). @ -no What testing was considered but not performed or refused? (CT, X-rays, U/S, labs)? Why? @ -none What meds were considered but not given or refused? Why? @ -none Did you discuss the management of the patient with other professionals (professionals i.e. , PA, CORRESPONDENCE SECTION SUPERVISOR, lab, RT, psych nurse, social media content manager, manager distribution, t eacher, commanding officer homicide squad, behavioral health case manager)? Give summary @ -no Was smoking cessation discussed for >3mins.? @ -no Were there social determinants of health that impacted care today? How? (Homelessness, low income, unemployed, alcoholism, drug addiction, transportation, low edu. Level, literacy, decrease access to med. care, residential, rehab)? @ -none Was there de-escalation of care discussed even if they declined (Discuss DNR or withdrawal of care, Hospice)? DNR status @ -no What co-morbidities impacted this encounter? (DM, HTN, Smoking, COPD, CAD, Cancer, CVA, ARF, Chemo, Hep., AIDS, mental health diagnosis, sleep apnea, morbid obesity)? @ -none Was patient admitted / discharged? Hospital course, mention meds given and route, prescriptions, significant lab abnormalities, going to OR and other p ertinent info. @ - 53 female to the ED c/o severe headache headache after syncopal event with head injury. Patient had no acute findings on imaging yesterday imaging is reviewed today with again no findings. Patient's headache is improved and she can be discharged home Discharge Was critical care preformed (if so, how long)? @ -no Undiagnosed new problem with uncertain prognosis? @ -no Drug Therapy requiring intensive monitoring for toxicity (Heparin, Nitro, Insulin, Cardizem)? @ -no Were any procedures done? @ -no Diagnosis/symptom? @ -Acute on chronic headache with nausea vomiting Acute, or Chronic, or Acute on Chronic? @ -Acute Uncomplicated (without systemic symptoms) or Complicated (systemic symptoms)? @ -Complicated Side effects of treatment? @ -no Exacerbation, Progression, or Severe Exacerbation? @ -exacerbation Poses a threat to life or bodily function? How? (Chest pain, [place], CA, pneumonia, PE, COPD, DKA, ARF, appy, cholecystitis, CVA, Diverticulitis, Homicidal, Richardson icidal, threat to staff... and all critical care pts) @ -no Reevaluation #5: Differential Headache: Migraine, tension, cluster, carbon monoxide, central venous thrombosis, pension karma temporal arteritis, acute closure glaucoma, intercranial hemorrhage, mastoiditis, sinusitis, head injury, this is not meant to be an all-inclusive list. Medical Decision Making - Medical Decision Making 53 female to the ED c/o severe headache headache after syncopal event with head injury. Patient had no acute findings on imaging yesterday imaging is reviewed today with again no findings. Patient's headache is improved and she can be discharged home Disposition Clinical Impression: Chronic pain, Headache Disposition: HOME SELF-CARE Condition: Fair Instructions (If sedation given, give patient instructions): Acute Headache (ED) Is patient prescribed a controlled substance at d/c from ED?: No Referrals: José Reece MD [Primary Care Provider] - 1-2 days Time of Disposition: 14:30
[2023-09-08] MEDS: HYDROmorphone 1 MG/ML 1 ML SYRINGE IM STA (15:44)
[2023-09-08] MEDS: diphenhydrAMINE 50 MG CAP PO STA (15:44)
[2023-09-08] MEDS: ONDANSETRON 4 MG TAB PO STA (15:44)
[2023-09-08] MEDS: POTASSIUM BICARBONATE/CIT AC 20 MEQ TABLET.EFF PO ONE (16:12)
[2023-09-08 16:20] VITALS: BP 162/94; PULSE 78; RESP 18
== END 2023-09-08 16:15 | disposition home or self-care (01) ==
LOC: EC 13:47
DX: G89.29 Other chronic pain (principal); R51.9 Headache, unspecified; R11.2 Nausea with vomiting, unspecified; Z87.891 Personal history of nicotine dependence; Z88.0 Allergy status to penicillin; Z88.1 Allergy status to other antibiotic agents; Z88.2 Allergy status to sulfonamides; Z88.5 Allergy status to narcotic agent; Z88.6 Allergy status to analgesic agent; Z88.8 Allergy status to other drugs, medicaments and biological substances; Z91.040 Latex allergy status; Z90.49 Acquired absence of other specified parts of digestive tract; W01.0XXA Fall on same level from slipping, tripping and stumbling without subsequent striking against object, initial encounter
CPT/HCPCS: 99283; J1170

== ENCOUNTER 2023-09-19 01:06 | Emergency (ER) | payer OTHER ==
[2023-09-19] MEDS: ONDANSETRON 4 MG/2 ML VIAL IVP STA ×2 (05:14→10:39)
[2023-09-19] MEDS: SODIUM CHLORIDE 0.9% 500 ML 500 ML IV STA (05:14)
[2023-09-19] MEDS: diphenhydrAMINE 50 MG/ML 1 ML VIAL IVP STA (05:14)
--- NOTE | 2023-09-19 05:14 | ED ---
Abdominal Pain HPI - General Source: patient Mode of arrival: wheelchair Limitations: no limitations - History of Present Illness MD Complaint: abdominal pain Onset/Timin -: days(s) Location: periumbilical Radiation: none Severity: severe Quality: aching, sharp Consistency: constant Improves With: nothing Worsens With: nothing Associated Symptoms: diarrhea <Joni Mclaughlin - Last Filed: 09/19/23 07:17> <Cayetano Hein - Last Filed: 09/19/23 13:56> - General Chief Complaint: Abdominal Pain Stated Complaint: Abd pain Time Seen by Provider: 09/19/23 04:57 - History of Present Illness Initial Comments: This patient is a 53-year-old woman who presents with complaint of abdominal pain. She states that on Friday she felt a sharp pop located in the umbilical area. She states that she subsequently developed diffuse sharp and aching abdominal pain. She has associated nausea and has had watery bowel movement x 2. No bloody or tarry stools. She has not noticed change in urination. No fever or chills. (Joni Mclaughlin) - Related Data Home Medications Medication Instructions Recorded Confirmed Omeprazole [PriLOSEC] 20 mg PO HS 12/15/20 09/07/23 Thiamine [Vitamin B-1] 100 mg PO HS 01/04/21 09/07/23 Atorvastatin [Lipitor] 40 mg PO HS 07/20/21 09/07/23 DULoxetine HCL [Cymbalta] 60 mg PO HS 07/20/21 09/07/23 Atogepant [Qulipta] 60 mg PO HS 06/03/22 09/07/23 Cyclobenzaprine [Flexeril] 10 mg PO TID PRN 06/03/22 09/07/23 HYDROcodone/APAP 10-325MG [Polson 1 tab PO TID PRN 06/03/22 09/07/23 10-325] Aspirin 81 mg PO HS 08/29/22 09/07/23 Clopidogrel [Plavix] 75 mg PO HS 08/29/22 09/07/23 Hyoscyamine Sulfate [Levsin-Sl] 0.125 mg SL HS 08/29/22 09/07/23 Cyanocobalamin (Vitamin B-12) 2,000 mcg PO HS 09/07/23 09/07/23 [Vitamin B-12] Linaclotide [Linzess] 145 mcg PO HS 09/07/23 09/07/23 Multivitamins, Thera [Multivitamin 1 tab PO HS 09/07/23 09/07/23 (formulary)] Pantoprazole Sodium [Protonix] 40 mg PO HS 09/07/23 09/07/23 Potassium Gluconate 99 mg PO HS 09/07/23 09/07/23 Pregabalin [Lyrica] 75 mg PO BID 09/07/23 09/07/23 Sennosides [Senokot] 8.6 mg PO BID 09/07/23 09/07/23 Simethicone Chew [Mylicon Chew] 80 mg PO Q4H PRN 09/07/23 09/07/23 Sucralfate [Carafate] 1 gm PO HS 09/07/23 09/07/23 Zavegepant HCl [Zavzpret] 1 spray NASAL DAILY PRN 09/07/23 09/07/23 bisacodyL [Dulcolax] 10 mg RECTAL HS PRN 09/07/23 09/07/23 polyethylene glycoL 3350 [Miralax] 17 gm PO BID 09/07/23 09/07/23 Allergies Allergy/AdvReac Type Severity Reaction Status Date / Time dihydroergotamine Allergy Unknown Unknown Verified 09/07/23 19:48 [From Migranal] buprenorphine Allergy Rash/Hives Verified 09/07/23 19:48 gabapentin [From Neurontin] Allergy Itching/Swe Verified 09/07/23 19:48 lling latex Allergy Anaphylaxis Verified 09/07/23 19:48 naproxen [From Naprosyn] Allergy Anaphylaxis Verified 09/07/23 19:48 Penicillins Allergy Anaphylaxis Verified 09/07/23 19:48 prednisone Allergy Swelling Verified 09/07/23 19:48 quetiapine fumarate Allergy Itching, Verified 09/07/23 19:48 [From Seroquel] leg cramps rofecoxib [From Vioxx] Allergy Itching, Verified 09/07/23 19:48 leg cramps terfenadine [From Seldane] Allergy Rash/Hives Verified 09/07/23 19:48 vancomycin Allergy Rash/Hives/Swelling Verified 09/07/23 19:48 @IV site calcium carbonate [From DHEA] AdvReac Chest Pain Verified 09/07/23 19:48 calcium phosphate,dibasic AdvReac Chest Pain Verified 09/07/23 19:48 [From DHEA] clindamycin AdvReac muscle Verified 09/07/23 19:48 cramps clonidine AdvReac fast Verified 09/07/23 19:48 heartbeat, migraine dextromethorphan HBr AdvReac face/neck Verified 09/07/23 19:48 [From NyQuil] flushing diazepam [From Valium] AdvReac Nausea & Verified 09/07/23 19:48 Vomiting divalproex sodium AdvReac Nausea & Verified 09/07/23 19:48 [From Depakote] Vomiting doxylamine [From NyQuil] AdvReac face "beet Verified 09/07/23 19:48 red", elevated temp. ibuprofen [From Motrin] AdvReac abdominal Verified 09/07/23 19:48 & muscle cramps indomethacin [From Indocin] AdvReac Abdominal Verified 09/07/23 19:48 Pain,N/V ketorolac tromethamine AdvReac "built up Verified 09/07/23 19:48 [From Toradol] in system", had to be given something to reverse lorazepam [From Ativan] AdvReac Nausea & Verified 09/07/23 19:48 Vomiting memantine [From Namenda] AdvReac Itching Verified 09/07/23 19:48 metoclopramide HCl AdvReac muscle Verified 09/07/23 19:48 [From Reglan] cramps nortriptyline [From Pamelor] AdvReac Chest Pain Verified 09/07/23 19:48 prasterone (DHEA) [From DHEA] AdvReac Chest Pain Verified 09/07/23 19:48 prochlorperazine AdvReac leg Verified 09/07/23 19:48 [From Compazine] cramping propranolol AdvReac Chest Pain Verified 09/07/23 19:48 pseudoephedrine HCl AdvReac face "beet Verified 09/07/23 19:48 [From NyQuil] red", elevated temp. quetiapine [From Seroquel] AdvReac leg Verified 09/07/23 19:48 cramping sumatriptan [From Imitrex] AdvReac migrane Verified 09/07/23 19:48 sumatriptan succinate AdvReac migrane Verified 09/07/23 19:48 [From Imitrex] topiramate [From Topamax] AdvReac "built up Verified 09/07/23 19:48 in system", had to be given something to reverse tramadol AdvReac Nausea & Verified 09/07/23 19:48 Vomiting/LEG CRAMPS/HEART FLUTTERS trazodone AdvReac "built up Verified 09/07/23 19:48 in system", had to be given something to reverse zolpidem tartrate AdvReac "Became Verified 09/07/23 19:48 [From Ambien] violent with no memory" zonisamide [From Zonegran] AdvReac inability Verified 09/07/23 19:48 to eat artificial sweetener AdvReac SEVERE Uncoded 09/07/23 19:48 MIGRAINE HEADACHE prosyn AdvReac Itching Uncoded 09/07/23 19:48 Review of Systems ROS Other: All systems not noted in ROS Statement are negative. Constitutional: Denies: fever, chills, weakness Respiratory: Denies: cough, dyspnea Cardiovascular: Denies: chest pain, palpitations, edema Gastrointestinal: Reports: abdominal pain, nausea, diarrhea. Denies: vomiting, melena, hematochezia Genitourinary: Denies: dysuria, hematuria Musculoskeletal: Denies: back pain Skin: Denies: rash Neurological: Denies: headache, weakness <Joni Mclaughlin - Last Filed: 09/19/23 07:17> ROS Other: All systems not noted in ROS Statement are negative. <Cayetano Hein - Last Filed: 09/19/23 13:56> ROS Statement: Those systems with pertinent positive or pertinent negative responses have been documented in the HPI. Past Medical History Past Medical History: Hyperlipidemia, Hypertension, Seizure Disorder Additional Past Medical History / Comment(s): Migraines, viral meningitis x3 as a child, 1995, 2000, chronic back pain, nerve blocks 08/2016 and 12/2016. Last seizure 10/10/2020, "ABSENT SEIZURES. HX TACHYCARDIA, GBS/CIPD, PTSD. History of Any Multi-Drug Resistant Organisms: None Reported Past Surgical History: Appendectomy, Section, Cholecystectomy, Heart Catheterization, Heart Catheterization With Stent, Hernia Repair, Hysterectomy, Orthopedic Surgery, Tonsillectomy, Tubal Ligation Additional Past Surgical History / Comment(s): Hiatal Hernia, umbilical hernia repair, left rotator cuff repair, bilateral knee scopes, pain clinic procedures- occipital nerve block. abd exploratory sx(endometreosis), 3 abd scopes 1981, 199 0, 1991), lumbar puncture. EGD. nerve biopsy, salvalry gland biospy Past Anesthesia/Blood Transfusion Reactions: No Reported Reaction Additional Past Anesthesia/Blood Transfusion Reaction / Comment(s): Claustrophobic Date of Last Stent Placement:: 06/03/2022 Past Psychological History: Anxiety, Bipolar, Panic Disorder, PTSD Smoking Status: Former smoker Past Alcohol Use History: None Reported Past Drug Use History: None Reported - Past Family History Mother Family Medical History: Cancer, Dementia, Diabetes Mellitus, GERD/Reflux, Hyperlipidemia, Hypertension, Thyroid Disorder Additional Family Medical History / Comment(s): CABG Father History Unknown: Yes Family Medical History: No Reported History <Joni Mclaughlin - Last Filed: 09/19/23 07:17> General Exam Limitations: no limitations General appearance: alert, in no apparent distress Head exam: Present: atraumatic, normocephalic Eye exam: Present: normal appearance. Absent: scleral icterus, conjunctival injection Respiratory exam: Present: normal lung sounds bilaterally. Absent: respiratory distress, wheezes, rales, rhonchi, stridor, accessory muscle use Cardiovascular Exam: Present: normal rhythm, tachycardia, normal heart sounds. Absent: systolic murmur, diastolic murmur, rubs, gallop GI/Abdominal exam: Present: soft, tenderness. Absent: distended, guarding, rebound, rigid, mass, pulsatile mass Extremities exam: Present: normal inspection, normal capillary refill. Absent: pedal edema, calf tenderness Back exam: Present: normal inspection. Absent: CVA tenderness (R), CVA tenderness (L) Neurological exam: Present: alert Skin exam: Present: warm, dry, intact, normal color. Absent: rash <Joni Mclaughlin - Last Filed: 09/19/23 07:17> Course Vital Signs 09/19/23 09/19/23 09/19/23 01:07 09:00 10:43 Temperature 98.0 F 97.8 F Pulse Rate 122 H 112 H 93 Respiratory 22 16 18 Rate Blood Pressure 173/95 170/88 173/99 O2 Sat by Pulse 100 97 97 Oximetry Medical Decision Making - Lab Data Result diagrams: 09/19/23 05:10 09/19/23 05:10 <Joni Mclaughlin - Last Filed: 09/19/23 07:17> - Lab Data Result diagrams: 09/19/23 05:10 09/19/23 08:45 <Cayetano Hein - Last Filed: 09/19/23 13:56> - Medical Decision Making Patient signed out to me pending results of CT abdomen pelvis. Presents for abdominal pain. Workup so far unremarkable labs do show the chronic hypokalemia which resolved. Is at her normal baseline which is low threes now. Made to the workup unremarkable. Slight elevated lipase. Urinalysis negative. test negative. CT abdomen pelvis obtained and interpreted by myself as revealing no obvious acute intra-abdominal process. On reevaluation, patient is resting comfortably at this time. Discussed results with her. She is well-known to our department and has a history of chronic pain. I did recommend she follow-up with her PCP. She was in agreement this plan. I will provide the patient with a prescription for ODT Zofran. I instructed the patient to follow up with their PCP in the next 1-3 days.. I explained that the patient should return to the emergency department if they experience any worsening symptoms. Strict return precautions were discussed with the patient. The patient expressed understanding of these instructions. I answered all questions that the patient had. The patient was discharged home in good condition with their prescriptions and follow up information. Diagnosis/symptom? @ -Abdominal pain of unknown etiology Acute, or Chronic, or Acute on Chronic? @ -Acute Uncomplicated (without systemic symptoms) or Complicated (systemic symptoms)? @ -Uncomplicated Side effects of treatment? @ -None Exacerbation, Progression, or Severe Exacerbation] @ -No Poses a threat to life or bodily function? @ -Unlikely (Cayetano Hein) - Lab Data Lab Results 09/19/23 09/19/23 09/19/23 Range/Units 05:10 05:10 08:45 WBC 7.3 (3.8-10.6) k/uL RBC 3.76 L (3.80-5.40) m/uL Hgb 11.4 (11.4-16.0) gm/dL Hct 34.9 (34.0-46.0) % MCV 92.9 (80.0-100.0) fL MCH 30.3 (25.0-35.0) pg MCHC 32.6 (31.0-37.0) g/dL RDW 15.0 (11.5-15.5) % Plt Count 337 (150-450) k/uL MPV 8.7 Neutrophils % 66 % Lymphocytes % 24 % Monocytes % 6 % Eosinophils % 1 % Basophils % 1 % Neutrophils # 4.8 (1.3-7.7) k/uL Lymphocytes # 1.8 (1.0-4.8) k/uL Monocytes # 0.4 (0-1.0) k/uL Eosinophils # 0.1 (0-0.7) k/uL Basophils # 0.1 (0-0.2) k/uL Sodium 137 (137-145) mmol/L Potassium 2.6 L* 3.1 L (3.5-5.1) mmol/L Chloride 104 (98-107) mmol/L Carbon Dioxide 29 (22-30) mmol/L Anion Gap 4 mmol/L BUN 3 L (7-17) mg/dL Creatinine 0.68 (0.52-1.04) mg/dL Est GFR (CKD-EPI)AfAm >90 (>60 ml/min/1.73 sqM) Est GFR (CKD-EPI)NonAf >90 (>60 ml/min/1.73 sqM) Glucose 100 H (74-99) mg/dL Calcium 8.6 (8.4-10.2) mg/dL Total Bilirubin 0.4 (0.2-1.3) mg/dL AST 25 (14-36) U/L ALT 19 (4-34) U/L Alkaline Phosphatase 132 H (38-126) U/L Total Protein 5.7 L (6.3-8.2) g/dL Albumin 3.3 L (3.5-5.0) g/dL Amylase 78 (30-110) U/L Lipase 370 H (23-300) U/L Urine Color Urine Appearance (Clear) Urine pH (5.0-8.0) Ur Specific [place] (1.001-1.035) Urine Protein (Negative) Urine Glucose (UA) (Negative) Urine Ketones (Negative) Urine Blood (Negative) Urine Nitrite (Negative) Urine Bilirubin (Negative) Urine Urobilinogen (<2.0) mg/dL Ur Leukocyte Esterase (Negative) Urine HCG, Qual (Not Detectd) 09/19/23 09/19/23 Range/Units 08:58 08:58 WBC (3.8-10.6) k/uL RBC (3.80-5.40) m/uL Hgb (11.4-16.0) gm/dL Hct (34.0-46.0) % MCV (80.0-100.0) fL MCH (25.0-35.0) pg MCHC (31.0-37.0) g/dL RDW (11.5-15.5) % Plt Count (150-450) k/uL MPV Neutrophils % % Lymphocytes % % Monocytes % % Eosinophils % % Basophils % % Neutrophils # (1.3-7.7) k/uL Lymphocytes # (1.0-4.8) k/uL Monocytes # (0-1.0) k/uL Eosinophils # (0-0.7) k/uL Basophils # (0-0.2) k/uL Sodium (137-145) mmol/L Potassium (3.5-5.1) mmol/L Chloride (98-107) mmol/L Carbon Dioxide (22-30) mmol/L Anion Gap mmol/L BUN (7-17) mg/dL Creatinine (0.52-1.04) mg/dL Est GFR (CKD-EPI)AfAm (>60 ml/min/1.73 sqM) Est GFR (CKD-EPI)NonAf (>60 ml/min/1.73 sqM) Glucose (74-99) mg/dL Calcium (8.4-10.2) mg/dL Total Bilirubin (0.2-1.3) mg/dL AST (14-36) U/L ALT (4-34) U/L Alkaline Phosphatase (38-126) U/L Total Protein (6.3-8.2) g/dL Albumin (3.5-5.0) g/dL Amylase (30-110) U/L Lipase (23-300) U/L Urine Color Colorless Urine Appearance Clear (Clear) Urine pH 6.0 (5.0-8.0) Ur Specific [place] 1.010 (1.001-1.035) Urine Protein Negative (Negative) Urine Glucose (UA) Negative (Negative) Urine Ketones Negative (Negative) Urine Blood Negative (Negative) Urine Nitrite Negative (Negative) Urine Bilirubin Negative (Negative) Urine Urobilinogen <2.0 (<2.0) mg/dL Ur Leukocyte Esterase Negative (Negative) Urine HCG, Qual Not Detected (Not Detectd) Disposition Is patient prescribed a controlled substance at d/c from ED?: No <Joni Mclaughlin - Last Filed: 09/19/23 07:17> Is patient prescribed a controlled substance at d/c from ED?: No Time of Disposition: 10:38 <Cayetano Hein - Last Filed: 09/19/23 13:56> Clinical Impression: Abdominal pain, Hypokalemia, Abdominal pain of unknown etiology Disposition: HOME SELF-CARE Condition: Good Instructions (If sedation given, give patient instructions): Abdominal Pain (ED) Referrals: José Reece MD [Primary Care Provider] - 1-2 days
[2023-09-19] MEDS: HYDROmorphone 0.5 MG/0.5 ML SYRINGE IVP STA (05:15)
[2023-09-19 05:37] LABS: Basophils # (A) 0.1 k/uL (0-0.2); Basophils % (A) 1 %; Eosinophils # (A) 0.1 k/uL (0-0.7); Eosinophils % (A) 1 %; HCT 34.9 % (34.0-46.0); HGB 11.4 gm/dL (11.4-16.0); Lymphocytes # (A) 1.8 k/uL (1.0-4.8); Lymphocytes % (A) 24 %; MCH 30.3 pg (25.0-35.0); MCHC 32.6 g/dL (31.0-37.0); MCV 92.9 fL (80.0-100.0); Mean Platelet Volume 8.7; Monocytes # (A) 0.4 k/uL (0-1.0); Monocytes % (A) 6 %; Neutrophils # (A) 4.8 k/uL (1.3-7.7); Neutrophils % (A) 66 %; Platelet Count 337 k/uL (150-450); RBC 3.76 m/uL (3.80-5.40); WBC 7.3 k/uL (3.8-10.6)
[2023-09-19 05:58] LABS: ALT 19 U/L (4-34); AST 25 U/L (14-36); African American GFR (CKD) >90 (>60 ml/min/1.73 sqM); Albumin 3.3 g/dL (3.5-5.0); Alkaline Phosphatase 132 U/L (38-126); Amylase 78 U/L (30-110); Anion Gap 4 mmol/L; Blood Urea Nitrogen 3 mg/dL (7-17); Calcium 8.6 mg/dL (8.4-10.2); Carbon Dioxide 29 mmol/L (22-30); Chloride 104 mmol/L (98-107); Glucose 100 mg/dL (74-99); Lipase 370 U/L (23-300); Non-African American GFR(CKD) >90 (>60 ml/min/1.73 sqM); Sodium 137 mmol/L (137-145); Total Bilirubin 0.4 mg/dL (0.2-1.3); Total Protein 5.7 g/dL (6.3-8.2)
[2023-09-19 06:16] LABS: Potassium 2.6 mmol/L (3.5-5.1)
[2023-09-19] MEDS: POTASSIUM BICARBONATE/CIT AC 20 MEQ TABLET.EFF PO ONE (06:55)
[2023-09-19] MEDS: HYDROmorphone 1 MG/ML 1 ML SYRINGE IVP STA ×2 (07:32→09:24)
[2023-09-19 09:12] LABS: Appearance,Urine Clear (Clear); Bilirubin,Urine Negative (Negative); Blood,Urine Negative (Negative); Color,Urine Colorless; Glucose,Urine (UA) Negative (Negative); Ketones,Urine Negative (Negative); Leukocyte Esterase,Urine Negative (Negative); Nitrite,Urine Negative (Negative); Protein,Urine Negative (Negative); Urobilinogen,Urine <2.0 mg/dL (<2.0)
--- NOTE | 2023-09-19 10:20 | CT ---
EXAMINATION TYPE: CT abdomen pelvis wo con DATE OF EXAM: 09/19/2023 COMPARISON: 01/20/2023 HISTORY: Right flank pain Examination of the solid and hollow viscera is limited given the lack of contrast. FINDINGS: LUNG BASES: No evidence for nodule. No evidence for infiltrate. LIVER/GB: The gallbladder is surgically absent. No space-occupying hepatic lesion. PANCREAS: No pancreatic mass identified. No inflammatory process seen. SPLEEN: No evidence for splenomegaly. No intrasplenic lesions seen. ADRENALS: No adrenal nodules identified. No evidence for thickening. KIDNEYS: No evidence for renal mass. No nephrolithiasis. No hydronephrosis. BOWEL: Appendix has a normal appearance. No evidence of bowel obstruction. No inflammatory process. Lymph nodes: No evidence for adenopathy greater than 1 cm. Abdominal aorta: Atheromatous changes seen. No evidence for aneurysm. Genital organs: Hysterectomy changes noted. Other: No significant abnormality. IMPRESSION: No acute process identified at this time.
[2023-09-19] MEDS: ONDANSETRON 4 MG ODT STARTER PACK 2 TAB BTL PO STA (10:39)
[2023-09-19 10:44] VITALS: BP 173/99; PULSE 93; RESP 18; TEMP 97.8
== END 2023-09-19 10:44 | disposition home or self-care (01) ==
LOC: EC 01:06
DX: E87.6 Hypokalemia (principal); R10.9 Unspecified abdominal pain; Z87.891 Personal history of nicotine dependence; Z91.040 Latex allergy status; Z88.0 Allergy status to penicillin; Z88.1 Allergy status to other antibiotic agents; Z88.5 Allergy status to narcotic agent; Z88.6 Allergy status to analgesic agent; Z88.8 Allergy status to other drugs, medicaments and biological substances
CPT/HCPCS: 36415; 80053; 82150; 83690; 84132; 85025; 81003; 81025; 74176; 99284; 96374; 96375 ×2; 96376; J1200; J2405; J1170 ×2; S0119

== ENCOUNTER 2023-09-26 00:13 | Emergency (ER) | payer OTHER ==
[2023-09-26 00:19] VITALS: TEMP 97.7
[2023-09-26] MEDS: ACETAMINOPHEN TAB 325 MG TAB PO STA (01:21)
--- NOTE | 2023-09-26 02:07 | ED ---
Lower Extremity Injury HPI - General Chief Complaint: Extremity Injury, Lower Stated Complaint: knee injury rt Time Seen by Provider: 09/26/23 02:05 Source: patient, family, RN notes reviewed Mode of arrival: wheelchair Limitations: no limitations - History of Present Illness Initial Comments: 53-year-old female presented to the ER with a chief complaint of right knee injury. Patient states she was standing and went to take a step when her knee gave out. She states it buckled underneath her. She denies falling or head injury. She states she is been experiencing pain since and unable to walk on her right knee. She denies any paresthesias or other injuries. - Related Data Home Medications Medication Instructions Recorded Confirmed Omeprazole [PriLOSEC] 20 mg PO HS 12/15/20 09/07/23 Thiamine [Vitamin B-1] 100 mg PO HS 01/04/21 09/07/23 Atorvastatin [Lipitor] 40 mg PO HS 07/20/21 09/07/23 DULoxetine HCL [Cymbalta] 60 mg PO HS 07/20/21 09/07/23 Atogepant [Qulipta] 60 mg PO HS 06/03/22 09/07/23 Cyclobenzaprine [Flexeril] 10 mg PO TID PRN 06/03/22 09/07/23 HYDROcodone/APAP 10-325MG [Paragon 1 tab PO TID PRN 06/03/22 09/07/23 10-325] Aspirin 81 mg PO HS 08/29/22 09/07/23 Clopidogrel [Plavix] 75 mg PO HS 08/29/22 09/07/23 Hyoscyamine Sulfate [Levsin-Sl] 0.125 mg SL HS 08/29/22 09/07/23 Cyanocobalamin (Vitamin B-12) 2,000 mcg PO HS 09/07/23 09/07/23 [Vitamin B-12] Linaclotide [Linzess] 145 mcg PO HS 09/07/23 09/07/23 Multivitamins, Thera [Multivitamin 1 tab PO HS 09/07/23 09/07/23 (formulary)] Pantoprazole Sodium [Protonix] 40 mg PO HS 09/07/23 09/07/23 Potassium Gluconate 99 mg PO HS 09/07/23 09/07/23 Pregabalin [Lyrica] 75 mg PO BID 09/07/23 09/07/23 Sennosides [Senokot] 8.6 mg PO BID 09/07/23 09/07/23 Simethicone Chew [Mylicon Chew] 80 mg PO Q4H PRN 09/07/23 09/07/23 Sucralfate [Carafate] 1 gm PO HS 09/07/23 09/07/23 Zavegepant HCl [Zavzpret] 1 spray NASAL DAILY PRN 09/07/23 09/07/23 bisacodyL [Dulcolax] 10 mg RECTAL HS PRN 09/07/23 09/07/23 polyethylene glycoL 3350 [Miralax] 17 gm PO BID 09/07/23 09/07/23 Allergies Allergy/AdvReac Type Severity Reaction Status Date / Time dihydroergotamine Allergy Unknown Unknown Verified 09/26/23 00:19 [From Migranal] buprenorphine Allergy Rash/Hives Verified 09/26/23 00:19 gabapentin [From Neurontin] Allergy Itching/Swe Verified 09/26/23 00:19 lling latex Allergy Anaphylaxis Verified 09/26/23 00:19 naproxen [From Naprosyn] Allergy Anaphylaxis Verified 09/26/23 00:19 Penicillins Allergy Anaphylaxis Verified 09/26/23 00:19 prednisone Allergy Swelling Verified 09/26/23 00:19 quetiapine fumarate Allergy Itching, Verified 09/26/23 00:19 [From Seroquel] leg cramps rofecoxib [From Vioxx] Allergy Itching, Verified 09/26/23 00:19 leg cramps terfenadine [From Seldane] Allergy Rash/Hives Verified 09/26/23 00:19 vancomycin Allergy Rash/Hives/Swelling Verified 09/26/23 00:19 @IV site calcium carbonate [From DHEA] AdvReac Chest Pain Verified 09/26/23 00:19 calcium phosphate,dibasic AdvReac Chest Pain Verified 09/26/23 00:19 [From DHEA] clindamycin AdvReac muscle Verified 09/26/23 00:19 cramps clonidine AdvReac fast Verified 09/26/23 00:19 heartbeat, migraine dextromethorphan HBr AdvReac face/neck Verified 09/26/23 00:19 [From NyQuil] flushing diazepam [From Valium] AdvReac Nausea & Verified 09/26/23 00:19 Vomiting divalproex sodium AdvReac Nausea & Verified 09/26/23 00:19 [From Depakote] Vomiting doxylamine [From NyQuil] AdvReac face "beet Verified 09/26/23 00:19 red", elevated temp. ibuprofen [From Motrin] AdvReac abdominal Verified 09/26/23 00:19 & muscle cramps indomethacin [From Indocin] AdvReac Abdominal Verified 09/26/23 00:19 Pain,N/V ketorolac tromethamine AdvReac "built up Verified 09/26/23 00:19 [From Toradol] in system", had to be given something to reverse lorazepam [From Ativan] AdvReac Nausea & Verified 09/26/23 00:19 Vomiting memantine [From Namenda] AdvReac Itching Verified 09/26/23 00:19 metoclopramide HCl AdvReac muscle Verified 09/26/23 00:19 [From Reglan] cramps nortriptyline [From Pamelor] AdvReac Chest Pain Verified 09/26/23 00:19 prasterone (DHEA) [From DHEA] AdvReac Chest Pain Verified 09/26/23 00:19 prochlorperazine AdvReac leg Verified 09/26/23 00:19 [From Compazine] cramping propranolol AdvReac Chest Pain Verified 09/26/23 00:19 pseudoephedrine HCl AdvReac face "beet Verified 09/26/23 00:19 [From NyQuil] red", elevated temp. quetiapine [From Seroquel] AdvReac leg Verified 09/26/23 00:19 cramping sumatriptan [From Imitrex] AdvReac migrane Verified 09/26/23 00:19 sumatriptan succinate AdvReac migrane Verified 09/26/23 00:19 [From Imitrex] topiramate [From Topamax] AdvReac "built up Verified 09/26/23 00:19 in system", had to be given something to reverse tramadol AdvReac Nausea & Verified 09/26/23 00:19 Vomiting/LEG CRAMPS/HEART FLUTTERS trazodone AdvReac "built up Verified 09/26/23 00:19 in system", had to be given something to reverse zolpidem tartrate AdvReac "Became Verified 09/26/23 00:19 [From Ambien] violent with no memory" zonisamide [From Zonegran] AdvReac inability Verified 09/26/23 00:19 to eat artificial sweetener AdvReac SEVERE Uncoded 09/26/23 00:19 MIGRAINE HEADACHE prosyn AdvReac Itching Uncoded 09/26/23 00:19 Review of Systems ROS Statement: Those systems with pertinent positive or pertinent negative responses have been documented in the HPI. ROS Other: All systems not noted in ROS Statement are negative. Past Medical History Past Medical History: Hyperlipidemia, Hypertension, Seizure Disorder Additional Past Medical History / Comment(s): Migraines, viral meningitis x3 as a child, 1995, 2000, chronic back pain, nerve blocks 08/2016 and 12/2016. Last seizure 10/10/2020, "ABSENT SEIZURES. HX TACHYCARDIA, GBS/CIPD, PTSD. History of Any Multi-Drug Resistant Organisms: None Reported Past Surgical History: Appendectomy, Section, Cholecystectomy, Heart Catheterization, Heart Catheterization With Stent, Hernia Repair, Hysterectomy, Orthopedic Surgery, Tonsillectomy, Tubal Ligation Additional Past Surgical History / Comment(s): Hiatal Hernia, umbilical hernia repair, left rotator cuff repair, bilateral knee scopes, pain clinic procedures- occipital nerve block. abd exploratory sx(endometreosis), 3 abd scopes 1981, 1989, 1991), lumbar puncture. EGD. nerve biopsy, salvalry gland biospy Past Anesthesia/Blood Transfusion Reactions: No Reported Reaction Additional Past Anesthesia/Blood Transfusion Reaction / Comment(s): Claustrophobic Date of Last Stent Placement:: 06/03/2022 Past Psychological History: Anxiety, Bipolar, Panic Disorder, PTSD Smoking Status: Former smoker Past Alcohol Use History: None Reported Past Drug Use History: None Reported - Past Family History Mother Family Medical History: Cancer, Dementia, Diabetes Mellitus, GERD/Reflux, Hyperlipidemia, Hypertension, Thyroid Disorder Additional Family Medical History / Comment(s): CABG Father History Unknown: Yes Family Medical History: No Reported History General Exam Limitations: no limitations General appearance: alert, in no apparent distress Respiratory exam: Present: normal lung sounds bilaterally. Absent: respiratory distress, wheezes, rales, rhonchi, stridor Cardiovascular Exam: Present: regular rate, normal rhythm, normal heart sounds. Absent: systolic murmur, diastolic murmur, rubs, gallop, clicks Extremities exam: Present: tenderness (Medial right knee. 2+ right dorsalis pedis pulse. Sensation intact. Range of motion due to pain. No erythema, contusions or abrasions. Mild edema present) Skin exam: Present: warm, dry, intact, normal color. Absent: rash Course Vital Signs 09/26/23 09/26/23 00:18 02:49 Temperature 97.7 F Pulse Rate 96 84 Respiratory 18 16 Rate Blood Pressure 152/97 156/110 O2 Sat by Pulse 100 96 Oximetry Medical Decision Making - Medical Decision Making Was pt. sent in by a medical professional or institution (, PA, [employer], urgent care, hospital, or jail...) When possible be specific @ -No Did you speak to anyone other than the patient for history (EMS, parent, family, police, friend...)? What history was obtained from this source @ -No Did you review nursing and triage notes (agree or disagree)? Why? @ -I reviewed and agree with nursing and triage notes Were old charts reviewed (outside hosp., previous admission, EMS record, old EKG, old radiological studies, urgent care reports/EKG's, jail records)? Report findings @ -No old charts were reviewed Differential Diagnosis (chest pain, altered mental status, abdominal pain women, abdominal pain men, vaginal bleeding, weakness, fever, dyspnea, syncope, headache, dizziness, GI bleed, back pain, seizure, CVA, palpatations, mental health, musculoskeletal)? @ -Differential Musculoskeletal Muscular strain, contusion, ligament sprain, fracture, arthritis, septic arthritis, bursitis, cellulitis, muscle spasm, nerve compression, DVT, arterial occlusion, herpes zoster, electrolyte abnormality, tumor.... This is not meant to be in all inclusive list EKG interpreted by me (3pts min.). @ -None X-rays interpreted by me (1pt min.). @ -Right knee x-ray interpreted by me negative for acute osseous process CT interpreted by me (1pt min.). @ -None done U/S interpreted by me (1pt. min.). @ -None done What testing was considered but not performed or refused? (CT, X-rays, U/S, labs)? Why? @ -None What meds were considered but not given or refused? Why? @ -None Did you discuss the management of the patient with other professionals (professionals i.e. , PA, [employer], lab, RT, psych nurse, medical social consultant, costume design teacher, teacher, chemistry technical officer, correctional casework specialist)? Give summary @ -No Was smoking cessation discussed for >3mins.? @ -No Was critical care preformed (if so, how long)? @ -No Were there social determinants of health that impacted care today? How? (Homelessness, low income, unemployed, alcoholism, drug addiction, tr ansportation, low edu. Level, literacy, decrease access to med. care, assisted, rehab)? @ -No Was there de-escalation of care discussed even if they declined (Discuss DNR or withdrawal of care, Hospice)? DNR status @ -No What co-morbidities impacted this encounter? (DM, HTN, Smoking, COPD, CAD, Cancer, CVA, ARF, Chemo, Hep., AIDS, mental health diagnosis, sleep apnea, morbid obesity)? @ -None Was patient admitted / discharged? Hospital course, mention meds given and route, prescriptions, significant lab abnormalities, going to OR and other pertinent info. @ -Discharge. 53-year-old female presented to the ER with a chief complaint of right knee pain. History and physical exam completed. Vitals stable. Right lower extremity neurovascular intact. Mild tenderness and edema to medial knee. Patient has limited range of motion due to pain. No erythema, bruising or rashes present. X-rays obtained negative for acute osseous process. Patient received by mouth Tylenol for pain control in the ER. Upon reevaluation, patient resting comfortably in exam room no signs of acute distress. X-ray results discussed with patient, all questions answered. Pain likely to be related to a soft tissue injury. Patient stable for discharge at this time. Knee immobilizer given. Advise follow-up with orthopedics, referral given. Patient reports she is a wheelchair at home to use for mobility. Return parameters discussed. Patient discharged stable condition. Patient verbally expressed understanding and agreement with care plan. Case discussed with ED attending, Dr. Bergeron. Undiagnosed new problem with uncertain prognosis? @ -No Drug Therapy requiring intensive monitoring for toxicity (Heparin, Nitro, Insulin, Cardizem)? @ -No Were any procedures done? @ -No Diagnosis/symptom? @ -Knee sprain Acute, or Chronic, or Acute on Chronic? @ -Acute Uncomplicated (without systemic symptoms) or Complicated (systemic symptoms)? @ -Uncomplicated Side effects of treatment? @ -No Exacerbation, Progression, or Severe Exacerbation? @ -No Poses a threat to life or bodily function? How? (Chest pain, [place], [place], pneumonia, PE, COPD, DKA, ARF, appy, cholecystitis, CVA, Diverticulitis, Homicidal, Suicidal, threat to staff... and all critical care pts) @ -No - Radiology Data Radiology results: report reviewed, image reviewed Disposition Clinical Impression: Knee sprain Disposition: HOME SELF-CARE Condition: Stable Instructions (If sedation given, give patient instructions): Knee Sprain (ED) Additional Instructions: Continue to ice rest and elevate. Follow-up with orthopedics for further evaluation. Return to the ER for any new or worsening concerns. Is patient prescribed a controlled substance at d/c from ED?: No Referrals: José Reece MD [Primary Care Provider] - 1-2 days Mihai Velasco DO [Doctor of Osteopathic Medicine] - 1-2 days Time of Disposition: 02:39
[2023-09-26 02:54] VITALS: BP 156/110; PULSE 84; RESP 16
--- NOTE | 2023-09-26 04:19 | XR ---
EXAM: XR Right Knee, 3 Views CLINICAL HISTORY: ITS.REASON XR Reason: pain TECHNIQUE: Three views of the right knee. COMPARISON: No relevant prior studies available. FINDINGS: Bones/joints: Osseous demineralization. No fracture or dislocation. Soft tissues: Unremarkable. IMPRESSION: No acute findings in the right knee.
== END 2023-09-26 02:52 | disposition home or self-care (01) ==
LOC: EC 00:13
DX: S83.91XA Sprain of unspecified site of right knee, initial encounter (principal); Z91.040 Latex allergy status; Z88.0 Allergy status to penicillin; Z88.8 Allergy status to other drugs, medicaments and biological substances; Z88.6 Allergy status to analgesic agent; Z88.1 Allergy status to other antibiotic agents; Z88.5 Allergy status to narcotic agent; Z91.018 Allergy to other foods; Z87.891 Personal history of nicotine dependence; Z88.2 Allergy status to sulfonamides; X50.0XXA Overexertion from strenuous movement or load, initial encounter
CPT/HCPCS: 99283

== ENCOUNTER 2023-10-07 01:56 | Emergency (ER) | payer OTHER ==
[2023-10-07 02:02] VITALS: RESP 20; TEMP 98.1
[2023-10-07] MEDS: ONDANSETRON 4 MG/2 ML VIAL IVP STA (02:50)
[2023-10-07] MEDS: MAGNESIUM SULFATE-D5W PMX 1 GM in DEXTROSE/WATER 1 100ML.BAG IVPB SCH (02:50)
[2023-10-07] MEDS: HYDROmorphone 1 MG/ML 1 ML SYRINGE IVP STA (02:50)
[2023-10-07] MEDS: ACETAMINOPHEN TAB 500 MG TAB PO STA (02:51)
--- NOTE | 2023-10-07 02:56 | ED ---
General Adult HPI - General Chief complaint: Headache Stated complaint: Headache Time Seen by Provider: 10/07/23 02:03 Source: patient, RN notes reviewed Mode of arrival: ambulatory Limitations: no limitations - History of Present Illness Initial comments: 53-year-old female presented to the ED with a chief complaint of migraine. Patient reports over the past few days has had migraine which is consistent with her history of migraines with associated photophobia, phonophobia, nausea. States that she is taking her at home abortive medications with no relief prompting presentation to the ED for further evaluation. Reports headache is not the worst headache of her life. No other complaints at this time. - Related Data Home Medications Medication Instructions Recorded Confirmed Omeprazole [PriLOSEC] 20 mg PO HS 12/15/20 09/07/23 Thiamine [Vitamin B-1] 100 mg PO HS 01/04/21 09/07/23 Atorvastatin [Lipitor] 40 mg PO HS 07/20/21 09/07/23 DULoxetine HCL [Cymbalta] 60 mg PO HS 07/20/21 09/07/23 Atogepant [Qulipta] 60 mg PO HS 06/03/22 09/07/23 Cyclobenzaprine [Flexeril] 10 mg PO TID PRN 06/03/22 09/07/23 HYDROcodone/APAP 10-325MG [Price 1 tab PO TID PRN 06/03/22 09/07/23 10-325] Aspirin 81 mg PO HS 08/29/22 09/07/23 Clopidogrel [Plavix] 75 mg PO HS 08/29/22 09/07/23 Hyoscyamine Sulfate [Levsin-Sl] 0.125 mg SL HS 08/29/22 09/07/23 Cyanocobalamin (Vitamin B-12) 2,000 mcg PO HS 09/07/23 09/07/23 [Vitamin B-12] Linaclotide [Linzess] 145 mcg PO HS 09/07/23 09/07/23 Multivitamins, Thera [Multivitamin 1 tab PO HS 09/07/23 09/07/23 (formulary)] Pantoprazole Sodium [Protonix] 40 mg PO HS 09/07/23 09/07/23 Potassium Gluconate 99 mg PO HS 09/07/23 09/07/23 Pregabalin [Lyrica] 75 mg PO BID 09/07/23 09/07/23 Sennosides [Senokot] 8.6 mg PO BID 09/07/23 09/07/23 Simethicone Chew [Mylicon Chew] 80 mg PO Q4H PRN 09/07/23 09/07/23 Sucralfate [Carafate] 1 gm PO HS 09/07/23 09/07/23 Zavegepant HCl [Zavzpret] 1 spray NASAL DAILY PRN 09/07/23 09/07/23 bisacodyL [Dulcolax] 10 mg RECTAL HS PRN 09/07/23 09/07/23 polyethylene glycoL 3350 [Miralax] 17 gm PO BID 09/07/23 09/07/23 Allergies Allergy/AdvReac Type Severity Reaction Status Date / Time dihydroergotamine Allergy Unknown Unknown Verified 09/26/23 00:19 [From Migranal] buprenorphine Allergy Rash/Hives Verified 09/26/23 00:19 gabapentin [From Neurontin] Allergy Itching/Swe Verified 09/26/23 00:19 lling latex Allergy Anaphylaxis Verified 09/26/23 00:19 naproxen [From Naprosyn] Allergy Anaphylaxis Verified 09/26/23 00:19 Penicillins Allergy Anaphylaxis Verified 09/26/23 00:19 prednisone Allergy Swelling Verified 09/26/23 00:19 quetiapine fumarate Allergy Itching, Verified 09/26/23 00:19 [From Seroquel] leg cramps rofecoxib [From Vioxx] Allergy Itching, Verified 09/26/23 00:19 leg cramps terfenadine [From Seldane] Allergy Rash/Hives Verified 09/26/23 00:19 vancomycin Allergy Rash/Hives/Swelling Verified 09/26/23 00:19 @IV site calcium carbonate [From DHEA] AdvReac Chest Pain Verified 09/26/23 00:19 calcium phosphate,dibasic AdvReac Chest Pain Verified 09/26/23 00:19 [From DHEA] clindamycin AdvReac muscle Verified 09/26/23 00:19 cramps clonidine AdvReac fast Verified 09/26/23 00:19 heartbeat, migraine dextromethorphan HBr AdvReac face/neck Verified 09/26/23 00:19 [From NyQuil] flushing diazepam [From Valium] AdvReac Nausea & Verified 09/26/23 00:19 Vomiting divalproex sodium AdvReac Nausea & Verified 09/26/23 00:19 [From Depakote] Vomiting doxylamine [From NyQuil] AdvReac face "beet Verified 09/26/23 00:19 red", elevated temp. ibuprofen [From Motrin] AdvReac abdominal Verified 09/26/23 00:19 & muscle cramps indomethacin [From Indocin] AdvReac Abdominal Verified 09/26/23 00:19 Pain,N/V ketorolac tromethamine AdvReac "built up Verified 09/26/23 00:19 [From Toradol] in system", had to be given something to reverse lorazepam [From Ativan] AdvReac Nausea & Verified 09/26/23 00:19 Vomiting memantine [From Namenda] AdvReac Itching Verified 09/26/23 00:19 metoclopramide HCl AdvReac muscle Verified 09/26/23 00:19 [From Reglan] cramps nortriptyline [From Pamelor] AdvReac Chest Pain Verified 09/26/23 00:19 prasterone (DHEA) [From DHEA] AdvReac Chest Pain Verified 09/26/23 00:19 prochlorperazine AdvReac leg Verified 09/26/23 00:19 [From Compazine] cramping propranolol AdvReac Chest Pain Verified 09/26/23 00:19 pseudoephedrine HCl AdvReac face "beet Verified 09/26/23 00:19 [From NyQuil] red", elevated temp. quetiapine [From Seroquel] AdvReac leg Verified 09/26/23 00:19 cramping sumatriptan [From Imitrex] AdvReac migrane Verified 09/26/23 00:19 sumatriptan succinate AdvReac migrane Verified 09/26/23 00:19 [From Imitrex] topiramate [From Topamax] AdvReac "built up Verified 09/26/23 00:19 in system", had to be given something to reverse tramadol AdvReac Nausea & Verified 09/26/23 00:19 Vomiting/LEG CRAMPS/HEART FLUTTERS trazodone AdvReac "built up Verified 09/26/23 00:19 in system", had to be given something to reverse zolpidem tartrate AdvReac "Became Verified 09/26/23 00:19 [From Ambien] violent with no memory" zonisamide [From Zonegran] AdvReac inability Verified 09/26/23 00:19 to eat artificial sweetener AdvReac SEVERE Uncoded 09/26/23 00:19 MIGRAINE HEADACHE prosyn AdvReac Itching Uncoded 09/26/23 00:19 Review of Systems ROS Statement: Those systems with pertinent positive or pertinent negative responses have been documented in the HPI. ROS Other: All systems not noted in ROS Statement are negative. Past Medical History Past Medical History: Hyperlipidemia, Hypertension, Seizure Disorder Additional Past Medical History / Comment(s): Migraines, viral meningitis x3 as a child, 1995, 2000, chronic back pain, nerve blocks 08/2016 and 12/2016. Last seizure 10/10/2020, "ABSENT SEIZURES. HX TACHYCARDIA, GBS/CIPD, PTSD. History of Any Multi-Drug Resistant Organisms: None Reported Past Surgical History: Appendectomy, Section, Cholecystectomy, Heart Catheterization, Heart Catheterization With Stent, Hernia Repair, Hysterectomy, Orthopedic Surgery, Tonsillectomy, Tubal Ligation Additional Past Surgical History / Comment(s): Hiatal Hernia, umbilical hernia repair, left rotator cuff repair, bilateral knee scopes, pain clinic procedures- occipital nerve block. abd exploratory sx(endometreosis), 3 abd scopes 1981, 1989, 1991), lumbar puncture. EGD. nerve biopsy, salvalry gland biospy Past Anesthesia/Blood Transfusion Reactions: No Reported Reaction Additional Past Anesthesia/Blood Transfusion Reaction / Comment(s): Claustrophobic Date of Last Stent Placement:: 06/03/2022 Past Psychological History: Anxiety, Bipolar, Panic Disorder, PTSD Smoking Status: Former smoker Past Alcohol Use History: None Reported Past Drug Use History: None Reported - Past Family History Mother Family Medical History: Cancer, Dementia, Diabetes Mellitus, GERD/Reflux, Hyperlipidemia, Hypertension, Thyroid Disorder Additional Family Medical History / Comment(s): CABG Father History Unknown: Yes Family Medical History: No Reported History General Exam Limitations: no limitations General appearance: alert, in no apparent distress Eye exam: Present: normal appearance, PERRL, EOMI Neck exam: Present: normal inspection Respiratory exam: Present: normal lung sounds bilaterally Cardiovascular Exam: Present: regular rate GI/Abdominal exam: Present: soft, normal bowel sounds. Absent: distended, tenderness, guarding, rebound, rigid Neurological exam: Present: alert, oriented X3, CN II-XII intact Skin exam: Present: warm, dry Course Vital Signs 10/07/23 01:57 Temperature 98.1 F Pulse Rate 110 H Respiratory 20 Rate Blood Pressure 166/110 O2 Sat by Pulse 99 Oximetry Medical Decision Making - Medical Decision Making Was pt. sent in by a medical professional or institution (, PA, MATERIAL YARD CLERK, urgent care, hospital, or senior living...) When possible be specific @ -No Did you speak to anyone other than the patient for history (EMS, parent, family, police, friend...)? What history was obtained from this source @ -No Did you review nursing and triage notes (agree or disagree)? Why? @ -I reviewed and agree with nursing and triage notes Were old charts reviewed (outside hosp., previous admission, EMS record, old EKG, old radiological studies, urgent care reports/EKG's, senior living records)? Report findings @ -No old charts were reviewed Differential Diagnosis (chest pain, altered mental status, abdominal pain women, abdominal pain men, vaginal bleeding, weakness, fever, dyspnea, syncope, headache, dizziness, GI bleed, back pain, seizure, CVA, palpatations, mental health, musculoskeletal)? @ -Differential Headache: Migraine, tension, cluster, carbon monoxide, central venous thrombosis, pension karma temporal arteritis, acute closure glaucoma, intercranial hemorrhage, mastoiditis, sinusitis, head injury, this is not meant to be an all-inclusive list. EKG interpreted by me (3pts min.). @ -None X-rays interpreted by me (1pt min.). @ -None done CT interpreted by me (1pt min.). @ -None done U/S interpreted by me (1pt. min.). @ -None done What testing was considered but not performed or refused? (CT, X-rays, U/S, labs)? Why? @ -Imaging was considered however at this time patient reports headache is consistent with her history of migraines and is not the worst headache of her life. What meds were considered but not given or refused? Why? @ -None Did you discuss the management of the patient with other professionals (professionals i.e. , PA, MATERIAL YARD CLERK, lab, RT, psych nurse, long term care social worker, it communications manager, teacher, front desk officer, case repairer)? Give summary @ -No Was smoking cessation discussed for >3mins.? @ -No Was critical care preformed (if so, how long)? @ -No Were there social determinants of health that impacted care today? How? (Homeles sness, low income, unemployed, alcoholism, drug addiction, transportation, low edu. Level, literacy, decrease access to med. care, snf, rehab)? @ -No Was there de-escalation of care discussed even if they declined (Discuss DNR or withdrawal of care, Hospice)? DNR status @ -No What co-morbidities impacted this encounter? (DM, HTN, Smoking, COPD, CAD, Cancer, CVA, ARF, Chemo, Hep., AIDS, mental health diagnosis, sleep apnea, morbid obesity)? @ -None Was patient admitted / discharged? Hospital course, mention meds given and route, prescriptions, significant lab abnormalities, going to OR and other pertinent info. @ -Discharge 53-year-old female presenting to the ED with headache consistent with her history of migraines. No alarming symptoms at this time. Patient provided analgesia with significant improvement of her pain. Discharged home in stable condition advised close follow-up with her PCP. Discussed return precautions with patient who verbalized agreement. Undiagnosed new problem with uncertain prognosis? @ -No Drug Therapy requiring intensive monitoring for toxicity (Heparin, Nitro, Insulin, Cardizem)? @ -No Were any procedures done? @ -No Diagnosis/symptom? @ -Headache Acute, or Chronic, or Acute on Chronic? @ -Acute Uncomplicated (without systemic symptoms) or Complicated (systemic symptoms)? @ -Uncomplicated Side effects of treatment? @ -No Exacerbation, Progression, or Severe Exacerbation? @ -No Poses a threat to life or bodily function? How? (Chest pain, USA, MD, pneumonia, PE, COPD, DKA, ARF, appy, cholecystitis, CVA, Diverticulitis, Homicidal, Suicidal, threat to staff... and all critical care pts) @ -No Disposition Clinical Impression: Migraine Disposition: HOME SELF-CARE Condition: Good Instructions (If sedation given, give patient instructions): Acute Headache (ED), Migraine Headache (ED) Additional Instructions: Please return to the Emergency Department if symptoms worsen or any other con cerns. Please follow-up with your primary care provider. Is patient prescribed a controlled substance at d/c from ED?: No Referrals: José Reece MD [Primary Care Provider] - 1-2 days Time of Disposition: 03:39
[2023-10-07] MEDS: HYDROmorphone 0.5 MG/0.5 ML SYRINGE IVP STA (04:07)
[2023-10-07 05:25] VITALS: BP 165/105; PULSE 98
== END 2023-10-07 05:21 | disposition home or self-care (01) ==
LOC: EC 01:56
DX: G43.909 Migraine, unspecified, not intractable, without status migrainosus (principal); Z87.891 Personal history of nicotine dependence; Z91.040 Latex allergy status; Z88.5 Allergy status to narcotic agent; Z88.8 Allergy status to other drugs, medicaments and biological substances; Z90.49 Acquired absence of other specified parts of digestive tract
CPT/HCPCS: 99283; 96365; 96366; 96375 ×3; 96376; J2405; J1170 ×2; J3475; J1642

== ENCOUNTER 2023-10-15 00:03 | Emergency (ER) | payer OTHER ==
[2023-10-15] MEDS: diphenhydrAMINE 50 MG/ML 1 ML VIAL IM STA (01:22)
[2023-10-15] MEDS: HYDROmorphone 1 MG/ML 1 ML SYRINGE IM STA (01:24)
[2023-10-15] MEDS: ONDANSETRON ODT 4 MG TAB PO STA (01:27)
--- NOTE | 2023-10-15 01:42 | ED ---
Headache HPI - General Chief Complaint: Headache Stated Complaint: NV, Migraine Time Seen by Provider: 10/15/23 00:10 Mode of arrival: ambulatory Limitations: no limitations - History of Present Illness Initial Comments: 53-year-old female who is well-known to the emergency department who presents today for headache, nausea and vomiting. Patient states that her symptoms started today. She has taken all of her home abortive medications without any improvement symptoms. She denies any fevers. No head injury. No neck stiffness or back pain. No other alleviating, precipitating or modifying factors - Related Data Home Medications Medication Instructions Recorded Confirmed Omeprazole [PriLOSEC] 20 mg PO HS 12/15/20 09/07/23 Thiamine [Vitamin B-1] 100 mg PO HS 01/04/21 09/07/23 Atorvastatin [Lipitor] 40 mg PO HS 07/20/21 09/07/23 DULoxetine HCL [Cymbalta] 60 mg PO HS 07/20/21 09/07/23 Atogepant [Qulipta] 60 mg PO HS 06/03/22 09/07/23 Cyclobenzaprine [Flexeril] 10 mg PO TID PRN 06/03/22 09/07/23 HYDROcodone/APAP 10-325MG [[place] 1 tab PO TID PRN 06/03/22 09/07/23 10-325] Aspirin 81 mg PO HS 08/29/22 09/07/23 Clopidogrel [Plavix] 75 mg PO HS 08/29/22 09/07/23 Hyoscyamine Sulfate [Levsin-Sl] 0.125 mg SL HS 08/29/22 09/07/23 Cyanocobalamin (Vitamin B-12) 2,000 mcg PO HS 09/07/23 09/07/23 [Vitamin B-12] Linaclotide [Linzess] 145 mcg PO HS 09/07/23 09/07/23 Multivitamins, Thera [Multivitamin 1 tab PO HS 09/07/23 09/07/23 (formulary)] Pantoprazole Sodium [Protonix] 40 mg PO HS 09/07/23 09/07/23 Potassium Gluconate 99 mg PO HS 09/07/23 09/07/23 Pregabalin [Lyrica] 75 mg PO BID 09/07/23 09/07/23 Sennosides [Senokot] 8.6 mg PO BID 09/07/23 09/07/23 Simethicone Chew [Mylicon Chew] 80 mg PO Q4H PRN 09/07/23 09/07/23 Sucralfate [Carafate] 1 gm PO HS 09/07/23 09/07/23 Zavegepant HCl [Zavzpret] 1 spray NASAL DAILY PRN 09/07/23 09/07/23 bisacodyL [Dulcolax] 10 mg RECTAL HS PRN 09/07/23 09/07/23 polyethylene glycoL 3350 [Miralax] 17 gm PO BID 09/07/23 09/07/23 Allergies Allergy/AdvReac Type Severity Reaction Status Date / Time dihydroergotamine Allergy Unknown Unknown Verified 10/26/23 20:33 [From Migranal] buprenorphine Allergy Rash/Hives Verified 10/26/23 20:33 gabapentin [From Neurontin] Allergy Itching/Swe Verified 10/26/23 20:33 lling latex Allergy Anaphylaxis Verified 10/26/23 20:33 naproxen [From Naprosyn] Allergy Anaphylaxis Verified 10/26/23 20:33 Penicillins Allergy Anaphylaxis Verified 10/26/23 20:33 prednisone Allergy Swelling Verified 10/26/23 20:33 quetiapine fumarate Allergy Itching, Verified 10/26/23 20:33 [From Seroquel] leg cramps rofecoxib [From Vioxx] Allergy Itching, Verified 10/26/23 20:33 leg cramps terfenadine [From Seldane] Allergy Rash/Hives Verified 10/26/23 20:33 vancomycin Allergy Rash/Hives/Swelling Verified 10/26/23 20:33 @IV site calcium carbonate [From DHEA] AdvReac Chest Pain Verified 10/26/23 20:33 calcium phosphate,dibasic AdvReac Chest Pain Verified 10/26/23 20:33 [From DHEA] clindamycin AdvReac muscle Verified 10/26/23 20:33 cramps clonidine AdvReac fast Verified 10/26/23 20:33 heartbeat, migraine dextromethorphan HBr AdvReac face/neck Verified 10/26/23 20:33 [From NyQuil] flushing diazepam [From Valium] AdvReac Nausea & Verified 10/26/23 20:33 Vomiting divalproex sodium AdvReac Nausea & Verified 10/26/23 20:33 [From Depakote] Vomiting doxylamine [From NyQuil] AdvReac face "beet Verified 10/26/23 20:33 red", elevated temp. ibuprofen [From Motrin] AdvReac abdominal Verified 10/26/23 20:33 & muscle cramps indomethacin [From Indocin] AdvReac Abdominal Verified 10/26/23 20:33 Pain,N/V ketorolac tromethamine AdvReac "built up Verified 10/26/23 20:33 [From Toradol] in system", had to be given something to reverse lorazepam [From Ativan] AdvReac Nausea & Verified 10/26/23 20:33 Vomiting memantine [From Namenda] AdvReac Itching Verified 10/26/23 20:33 metoclopramide HCl AdvReac muscle Verified 10/26/23 20:33 [From Reglan] cramps nortriptyline [From Pamelor] AdvReac Chest Pain Verified 10/26/23 20:33 prasterone (DHEA) [From DHEA] AdvReac Chest Pain Verified 10/26/23 20:33 prochlorperazine AdvReac leg Verified 10/26/23 20:33 [From Compazine] cramping propranolol AdvReac Chest Pain Verified 10/26/23 20:33 pseudoephedrine HCl AdvReac face "beet Verified 10/26/23 20:33 [From NyQuil] red", elevated temp. quetiapine [From Seroquel] AdvReac leg Verified 10/26/23 20:33 cramping sumatriptan [From Imitrex] AdvReac migrane Verified 10/26/23 20:33 sumatriptan succinate AdvReac migrane Verified 10/26/23 20:33 [From Imitrex] topiramate [From Topamax] AdvReac "built up Verified 10/26/23 20:33 in system", had to be given something to reverse tramadol AdvReac Nausea & Verified 10/26/23 20:33 Vomiting/LEG CRAMPS/HEART FLUTTERS trazodone AdvReac "built up Verified 10/26/23 20:33 in system", had to be given something to reverse zolpidem tartrate AdvReac "Became Verified 10/26/23 20:33 [From Ambien] violent with no memory" zonisamide [From Zonegran] AdvReac inability Verified 10/26/23 20:33 to eat artificial sweetener AdvReac SEVERE Uncoded 10/26/23 20:33 MIGRAINE HEADACHE prosyn AdvReac Itching Uncoded 10/26/23 20:33 Review of Systems ROS Statement: Those systems with pertinent positive or pertinent negative responses have been documented in the HPI. ROS Other: All systems not noted in ROS Statement are negative. Past Medical History Past Medical History: Hyperlipidemia, Hypertension, Seizure Disorder Additional Past Medical History / Comment(s): Migraines, viral meningitis x3 as a child, 1995, 2000, chronic back pain, nerve blocks 08/2016 and 12/2016. Last seizure 10/10/2020, "ABSENT SEIZURES. HX TACHYCARDIA, GBS/CIPD, PTSD. History of Any Multi-Drug Resistant Organisms: None Reported Past Surgical History: Appendectomy, Section, Cholecystectomy, Heart Catheterization, Heart Catheterization With Stent, Hernia Repair, Hysterectomy, Orthopedic Surgery, Tonsillectomy, Tubal Ligation Additional Past Surgical History / Comment(s): Hiatal Hernia, umbilical hernia repair, left rotator cuff repair, bilateral knee scopes, pain clinic procedures- occipital nerve block. abd exploratory sx(endometreosis), 3 abd scopes 1981, 1989, 1991), lumbar puncture. EGD. nerve biopsy, salvalry gland biospy Past Anesthesia/Blood Transfusion Reactions: No Reported Reaction Additional Past Anesthesia/Blood Transfusion Reaction / Comment(s): Claustrophobic Date of Last Stent Placement:: 06/03/2022 Past Psychological History: Anxiety, Bipolar, Panic Disorder, PTSD Smoking Status: Former smoker Past Alcohol Use History: None Reported Past Drug Use History: None Reported - Past Family History Mother Family Medical History: Cancer, Dementia, Diabetes Mellitus, GERD/Reflux, Hyperlipidemia, Hypertension, Thyroid Disorder Additional Family Medical History / Comment(s): CABG Father History Unknown: Yes Family Medical History: No Reported History General Exam Limitations: no limitations General appearance: alert, in no apparent distress Head exam: Present: atraumatic, normocephalic, normal inspection Eye exam: Present: normal appearance, PERRL, EOMI. Absent: scleral icterus, conjunctival injection, periorbital swelling ENT exam: Present: normal exam, mucous membranes moist Neck exam: Present: normal inspection. Absent: tenderness, meningismus, lymphadenopathy Respiratory exam: Present: normal lung sounds bilaterally. Absent: respiratory distress, wheezes, rales, rhonchi, stridor Cardiovascular Exam: Present: normal rhythm, tachycardia, normal heart sounds. Absent: systolic murmur, diastolic murmur, rubs, gallop, clicks GI/Abdominal exam: Present: soft, normal bowel sounds. Absent: distended, tenderness, guarding, rebound, rigid Extremities exam: Present: normal inspection, full ROM, normal capillary refill. Absent: tenderness, pedal edema, joint swelling, calf tenderness Back exam: Present: normal inspection Neurological exam: Present: alert, oriented X3, CN II-XII intact Psychiatric exam: Present: normal affect, normal mood Skin exam: Present: warm, dry, intact, normal color. Absent: rash Course Vital Signs 10/15/23 10/15/23 00:08 01:55 Temperature 97.8 F 98 F Pulse Rate 119 H 116 H Respiratory 16 17 Rate Blood Pressure 163/125 148/99 O2 Sat by Pulse 99 97 Oximetry Medical Decision Making - Medical Decision Making Was pt. sent in by a medical professional or institution (, PA, RN WOUND, urgent care, hospital, or fpc...) When possible be specific @ -No Did you speak to anyone other than the patient for history (EMS, parent, family, police, friend...)? What history was obtained from this source @ -No Did you review nursing and triage notes (agree or disagree)? Why? @ -I reviewed and agree with nursing and triage notes Were old charts reviewed (outside hosp., previous admission, EMS record, old EKG, old radiological studies, urgent care reports/EKG's, fpc records)? Report findings @ -No old charts were reviewed Differential Diagnosis (chest pain, altered mental status, abdominal pain women, abdominal pain men, vaginal bleeding, weakness, fever, dyspnea, syncope, headache, dizziness, GI bleed, back pain, seizure, CVA, palpatations, mental health, musculoskeletal)? @ -Differential Headache: Migraine, tension, cluster, carbon monoxide, central venous thrombosis, pension karma temporal arteritis, acute closure glaucoma, intercranial hemorrhage, mastoiditis, sinusitis, head injury, this is not meant to be an all-inclusive list. EKG interpreted by me (3pts min.). @ -Not done X-rays interpreted by me (1pt min.). @ -None done CT interpreted by me (1pt min.). @ -None done U/S interpreted by me (1pt. min.). @ -None done What testing was considered but not performed or refused? (CT, X-rays, U/S, labs)? Why? @ -None What meds were considered but not given or refused? Why? @ -None Did you discuss the management of the patient with other professionals (professionals i.e. DrJesu, PA, RN WOUND, lab, RT, psych nurse, family welfare social work professor, terrazzo roller, teacher, dairy quality assurance officer, case management manager)? Give summary @ -No Was smoking cessation discussed for >3mins.? @ -No Was critical care preformed (if so, how long)? @ -No Were there social determinants of health that impacted care today? How? (Homelessness, low income, unemployed, alcoholism, drug addiction, transportation, low edu. Level, literacy, decrease access to med. care, penitentiary, rehab)? @ -No Was there de-escalation of care discussed even if they declined (Discuss DNR or withdrawal of care, Hospice)? DNR status @ -No What co-morbidities impacted this encounter? (DM, HTN, Smoking, COPD, CAD, Cancer, CVA, ARF, Chemo, Hep., AIDS, mental health diagnosis, sleep apnea, morbid obesity)? @ -Migraines Was patient admitted / discharged? Hospital course, mention meds given and route, prescriptions, significant lab abnormalities, going to OR and other pertinent info. @ -Upon arrival patient seen and evaluated weight 26. Thorough history and physical exam was performed. Was given pain medications and reevaluated. Reports improvement in her symptoms. She will be discharged at this time and instructed to follow-up with her neurologist. Return for any new or worsening symptoms Undiagnosed new problem with uncertain prognosis? @ -No Drug Therapy requiring intensive monitoring for toxicity (Heparin, Nitro, Insulin, Cardizem)? @ -No Were any procedures done? @ -No Diagnosis/symptom? @ -Acute breakthrough migraine Acute, or Chronic, or Acute on Chronic? @ -Acute on chronic Uncomplicated (without systemic symptoms) or Complicated (systemic symptoms)? @ -complicated Side effects of treatment? @ -No Exacerbation, Progression, or Severe Exacerbation? @ -yes Poses a threat to life or bodily function? How? (Chest pain, [place], [place], pneumonia, PE, COPD, DKA, ARF, appy, cholecystitis, CVA, Diverticulitis, Homicidal, Suicidal, threat to staff... and all critical care pts) @ -No Disposition Clinical Impression: Migraine Disposition: HOME SELF-CARE Condition: Stable Instructions (If sedation given, give patient instructions): Acute Headache (ED) Is patient prescribed a controlled substance at d/c from ED?: No Referrals: José Reece MD [Primary Care Provider] - 1-2 days Time of Disposition: 01:42
[2023-10-15 01:59] VITALS: BP 148/99; PULSE 116; RESP 17; TEMP 98
== END 2023-10-15 01:59 | disposition home or self-care (01) ==
LOC: EC 00:03
DX: G43.909 Migraine, unspecified, not intractable, without status migrainosus (principal); Z87.891 Personal history of nicotine dependence; Z88.0 Allergy status to penicillin; Z88.1 Allergy status to other antibiotic agents; Z88.2 Allergy status to sulfonamides; Z88.5 Allergy status to narcotic agent; Z88.6 Allergy status to analgesic agent; Z88.8 Allergy status to other drugs, medicaments and biological substances; Z91.040 Latex allergy status; Z90.49 Acquired absence of other specified parts of digestive tract
CPT/HCPCS: 99283; 96372 ×2; J1200; J1170

== ENCOUNTER 2023-10-26 20:22 | Emergency (ER) | payer OTHER ==
[2023-10-26 20:32] VITALS: TEMP 98
[2023-10-26] MEDS: SODIUM CHLORIDE 0.9% 1,000 ML IV STA (22:10)
[2023-10-26] MEDS: diphenhydrAMINE 50 MG/ML 1 ML VIAL IVP STA (22:12)
[2023-10-26] MEDS: ONDANSETRON 4 MG/2 ML VIAL IVP STA (22:12)
[2023-10-26] MEDS: MORPHINE SULFATE 4 MG/ML SYRINGE IVP STA (22:12)
--- NOTE | 2023-10-26 22:59 | CT ---
EXAMINATION TYPE: CT brain wo con DATE OF EXAM: 10/26/2023 HISTORY: Pt. presents to ED w/ migraine. Pt. states she fell yesterday, due to losing balance, pt.sta ethan she hit head on the wall, c/o headache. Pt. no longer on plavix, no LOC. CT DLP: 1095.9 mGycm. Automated Exposure Control for Dose Reduction was Utilized. TECHNIQUE: CT scan of the head is performed without contrast. COMPARISON: CT brain September 07, 2023. FINDINGS: There is no acute intracranial hemorrhage or midline shift identified. Ventricles and sul ci within normal limits in size for patient's age. Johnson-white matter differentiation is maintained. T he calvarium is intact. Nasal septum remains deviated to left of midline. The globes are intact and t he visualized sinuses are clear. IMPRESSION: No acute intracranial hemorrhage or midline shift. No significant change from most recen t prior.
[2023-10-26] MEDS: HYDROmorphone 1 MG/ML 1 ML SYRINGE IVP STA (23:22)
--- NOTE | 2023-10-26 23:27 | ED ---
General Adult HPI - General Chief complaint: Headache Stated complaint: fall,head injury Time Seen by Provider: 10/26/23 21:39 Source: patient, RN notes reviewed, old records reviewed Mode of arrival: ambulatory Limitations: no limitations - History of Present Illness Initial comments: Patient is a 56-year-old female well-known to our emergency department. Presents with acute on chronic headache. States she did hit her head hard yesterday putting a dent in a wall. Did not lose consciousness. Is no longer on blood thinners. Endorses very typical migraine type headache but also worsening headache over her forehead. Sensitive to light. Presents for further evaluation. She is a chronic pain patient. Denies any significant nausea or vomiting. Denies fevers or chills. No other acute complaints. - Related Data Home Medications Medication Instructions Recorded Confirmed Omeprazole [PriLOSEC] 20 mg PO HS 12/15/20 09/07/23 Thiamine [Vitamin B-1] 100 mg PO HS 01/04/21 09/07/23 Atorvastatin [Lipitor] 40 mg PO HS 07/20/21 09/07/23 DULoxetine HCL [Cymbalta] 60 mg PO HS 07/20/21 09/07/23 Atogepant [Qulipta] 60 mg PO HS 06/03/22 09/07/23 Cyclobenzaprine [Flexeril] 10 mg PO TID PRN 06/03/22 09/07/23 HYDROcodone/APAP 10-325MG [Nebo 1 tab PO TID PRN 06/03/22 09/07/23 10-325] Aspirin 81 mg PO HS 08/29/22 09/07/23 Clopidogrel [Plavix] 75 mg PO HS 08/29/22 09/07/23 Hyoscyamine Sulfate [Levsin-Sl] 0.125 mg SL HS 08/29/22 09/07/23 Cyanocobalamin (Vitamin B-12) 2,000 mcg PO HS 09/07/23 09/07/23 [Vitamin B-12] Linaclotide [Linzess] 145 mcg PO HS 09/07/23 09/07/23 Multivitamins, Thera [Multivitamin 1 tab PO HS 09/07/23 09/07/23 (formulary)] Pantoprazole Sodium [Protonix] 40 mg PO HS 09/07/23 09/07/23 Potassium Gluconate 99 mg PO HS 09/07/23 09/07/23 Pregabalin [Lyrica] 75 mg PO BID 09/07/23 09/07/23 Sennosides [Senokot] 8.6 mg PO BID 09/07/23 09/07/23 Simethicone Chew [Mylicon Chew] 80 mg PO Q4H PRN 09/07/23 09/07/23 Sucralfate [Carafate] 1 gm PO HS 09/07/23 09/07/23 Zavegepant HCl [Zavzpret] 1 spray NASAL DAILY PRN 09/07/23 09/07/23 bisacodyL [Dulcolax] 10 mg RECTAL HS PRN 09/07/23 09/07/23 polyethylene glycoL 3350 [Miralax] 17 gm PO BID 09/07/23 09/07/23 Allergies Allergy/AdvReac Type Severity Reaction Status Date / Time dihydroergotamine Allergy Unknown Unknown Verified 10/26/23 20:33 [From Migranal] buprenorphine Allergy Rash/Hives Verified 10/26/23 20:33 gabapentin [From Neurontin] Allergy Itching/Swe Verified 10/26/23 20:33 lling latex Allergy Anaphylaxis Verified 10/26/23 20:33 naproxen [From Naprosyn] Allergy Anaphylaxis Verified 10/26/23 20:33 Penicillins Allergy Anaphylaxis Verified 10/26/23 20:33 prednisone Allergy Swelling Verified 10/26/23 20:33 quetiapine fumarate Allergy Itching, Verified 10/26/23 20:33 [From Seroquel] leg cramps rofecoxib [From Vioxx] Allergy Itching, Verified 10/26/23 20:33 leg cramps terfenadine [From Seldane] Allergy Rash/Hives Verified 10/26/23 20:33 vancomycin Allergy Rash/Hives/Swelling Verified 10/26/23 20:33 @IV site calcium carbonate [From DHEA] AdvReac Chest Pain Verified 10/26/23 20:33 calcium phosphate,dibasic AdvReac Chest Pain Verified 10/26/23 20:33 [From DHEA] clindamycin AdvReac muscle Verified 10/26/23 20:33 cramps clonidine AdvReac fast Verified 10/26/23 20:33 heartbeat, migraine dextromethorphan HBr AdvReac face/neck Verified 10/26/23 20:33 [From NyQuil] flushing diazepam [From Valium] AdvReac Nausea & Verified 10/26/23 20:33 Vomiting divalproex sodium AdvReac Nausea & Verified 10/26/23 20:33 [From Depakote] Vomiting doxylamine [From NyQuil] AdvReac face "beet Verified 10/26/23 20:33 red", elevated temp. ibuprofen [From Motrin] AdvReac abdominal Verified 10/26/23 20:33 & muscle cramps indomethacin [From Indocin] AdvReac Abdominal Verified 10/26/23 20:33 Pain,N/V ketorolac tromethamine AdvReac "built up Verified 10/26/23 20:33 [From Toradol] in system", had to be given something to reverse lorazepam [From Ativan] AdvReac Nausea & Verified 10/26/23 20:33 Vomiting memantine [From Namenda] AdvReac Itching Verified 10/26/23 20:33 metoclopramide HCl AdvReac muscle Verified 10/26/23 20:33 [From Reglan] cramps nortriptyline [From Pamelor] AdvReac Chest Pain Verified 10/26/23 20:33 prasterone (DHEA) [From DHEA] AdvReac Chest Pain Verified 10/26/23 20:33 prochlorperazine AdvReac leg Verified 10/26/23 20:33 [From Compazine] cramping propranolol AdvReac Chest Pain Verified 10/26/23 20:33 pseudoephedrine HCl AdvReac face "beet Verified 10/26/23 20:33 [From NyQuil] red", elevated temp. quetiapine [From Seroquel] AdvReac leg Verified 10/26/23 20:33 cramping sumatriptan [From Imitrex] AdvReac migrane Verified 10/26/23 20:33 sumatriptan succinate AdvReac migrane Verified 10/26/23 20:33 [From Imitrex] topiramate [From Topamax] AdvReac "built up Verified 10/26/23 20:33 in system", had to be given something to reverse tramadol AdvReac Nausea & Verified 10/26/23 20:33 Vomiting/LEG CRAMPS/HEART FLUTTERS trazodone AdvReac "built up Verified 10/26/23 20:33 in system", had to be given something to reverse zolpidem tartrate AdvReac "Became Verified 10/26/23 20:33 [From Ambien] violent with no memory" zonisamide [From Zonegran] AdvReac inability Verified 10/26/23 20:33 to eat artificial sweetener AdvReac SEVERE Uncoded 10/26/23 20:33 MIGRAINE HEADACHE prosyn AdvReac Itching Uncoded 10/26/23 20:33 Review of Systems ROS Statement: Those systems with pertinent positive or pertinent negative responses have been documented in the HPI. Review of Systems: CONST: Denies fever EYES: Denies blurry vision ENT: Denies nasal congestion C/V: Denies Chest pain RESP: Denies shortness of breath GI: Denies abdominal pain : Denies dysuria SKIN: Denies rash. MSK: Denies joint pain. NEURO: Endorses headache ROS Other: All systems not noted in ROS Statement are negative. Past Medical History Past Medical History: Hyperlipidemia, Hypertension, Seizure Disorder Additional Past Medical History / Comment(s): Migraines, viral meningitis x3 as a child, 1995, 2000, chronic back pain, nerve blocks 08/2016 and 12/2016. Last seizure 10/10/2020, "ABSENT SEIZURES. HX TACHYCARDIA, GBS/CIPD, PTSD. History of Any Multi-Drug Resistant Organisms: None Reported Past Surgical History: Appendectomy, Section, Cholecystectomy, Heart Catheterization, Heart Catheterization With Stent, Hernia Repair, Hysterectomy, Orthopedic Surgery, Tonsillectomy, Tubal Ligation Additional Past Surgical History / Comment(s): Hiatal Hernia, umbilical hernia repair, left rotator cuff repair, bilateral knee scopes, pain clinic procedures- occipital nerve block. abd exploratory sx(endometreosis), 3 abd scopes 1981, 1989, 1991), lumbar puncture. EGD. nerve biopsy, salvalry gland biospy Past Anesthesia/Blood Transfusion Reactions: No Reported Reaction Additional Past Anesthesia/Blood Transfusion Reaction / Comment(s): Claustrophobic Date of Last Stent Placement:: 06/03/2022 Past Psychological History: Anxiety, Bipolar, Panic Disorder, PTSD Smoking Status: Former smoker Past Alcohol Use History: None Reported Past Drug Use History: None Reported - Past Family History Mother Family Medical History: Cancer, Dementia, Diabetes Mellitus, GERD/Reflux, Hyperlipidemia, Hypertension, Thyroid Disorder Additional Family Medical History / Comment(s): CABG Father History Unknown: Yes Family Medical History: No Reported History General Exam - General Exam Comments Initial Comments: General: Appears in no acute distress. HEAD: Normal with no signs of head trauma. Negative Lopez sign. Negative raccoon eyes. No obvious trauma to the forehead. EYES: PERRLA, EOMI, conjunctiva normal, no discharge. Pupils are 3 mm and equal bilaterally. ENT: Hearing grossly intact, normal oropharynx. RESPIRATORY: Clear breath sounds bilaterally. No wheezes, rales, or rhonchi. C/V: Regular rate and rhythm. S1 and S2 auscultated, peripheral pulses 2+ and intact throughout ABD: Abd is soft, nontender, nondistended EXT: no obvious deformity SKIN: No rashes or lesions observed on exposed skin. NEURO: Alert and oriented x 4. No focal sensory or strength deficits. GCS of 15. Limitations: no limitations Course Vital Signs 10/26/23 10/27/23 20:24 00:30 Temperature 98.0 F Pulse Rate 117 H 100 Respiratory 17 18 Rate Blood Pressure 139/95 138/86 O2 Sat by Pulse 98 98 Oximetry Medical Decision Making - Medical Decision Making Was pt. sent in by a medical professional or institution (SHANTHI Silver, ACUTE CARE OCCUPATIONAL THERAPIST, urgent care, hospital, or [facility]...) When possible be specific @ -No Did you speak to anyone other than the patient for history (EMS, parent, family, police, friend...)? What history was obtained from this source @ -No Did you review nursing and triage notes (agree or disagree)? Why? @ -I reviewed and agree with nursing and triage notes Were old charts reviewed (outside hosp., previous admission, EMS record, old EKG, old radiological studies, urgent care reports/EKG's, [facility] records)? Report findings @ -No old charts were reviewed Differential Diagnosis (chest pain, altered mental status, abdominal pain women, abdominal pain men, vaginal bleeding, weakness, fever, dyspnea, syncope, headache, dizziness, GI bleed, back pain, seizure, CVA, palpatations, mental health, musculoskeletal)? @ -Headache, chronic pain, intracranial injury. This list is not all inclusive. EKG interpreted by me (3pts min.). @ -None done X-rays interpreted by me (1pt min.). @ -None done CT interpreted by me (1pt min.). @ -CT brain shows no obvious acute intracranial process or injury U/S interpreted by me (1pt. min.). @ -None done What testing was considered but not performed or refused? (CT, X-rays, U/S, labs)? Why? @ -None What meds were considered but not given or refused? Why? @ -None Did you discuss the management of the patient with other professionals (professionals i.e. , PA, ACUTE CARE OCCUPATIONAL THERAPIST, lab, RT, psych nurse, clinical social work aide, link trainer maintenance man, teacher, professional security officer, comp field case manager)? Give summary @ -No Was smoking cessation discussed for >3mins.? @ -No Was critical care preformed (if so, how long)? @ -No Were there social determinants of health that impacted care today? How? (Homelessness, low income, unemployed, alcoholism, drug addiction, transportation, low edu. Level, literacy, decrease access to med. care, [facility], rehab)? @ -No Was there de-escalation of care discussed even if they declined (Discuss DNR or withdrawal of care, Hospice)? DNR status @ -No What co-morbidities impacted this encounter? (DM, HTN, Smoking, COPD, CAD, Cancer, CVA, ARF, Chemo, Hep., AIDS, mental health diagnosis, sleep apnea, morbid obesity)? @ -Chronic pain. Migraines. Was patient admitted / discharged? Hospital course, mention meds given and route, prescriptions, significant lab abnormalities, going to OR and other pertinent info. @ -Based on the patient's presentation and physical exam, patient presents emergency department complaining of headaches. Has a history of chronic headaches however patient does endorse mild trauma yesterday. Did discuss obtaining CT imaging and after discussion she does want it performed. Will obtain CT brain. No other obvious traumatic injuries. She will be given IV fluids, as well as migraine cocktail. She was in agreement this plan. CT brain unremarkable. Patient's pain is improved however I will provide her with additional analgesia medications. On reevaluation pain is improved. Discussed I believe is safer to be discharged home. She was in agreement this plan. Strict return precautions discussed. I instructed the patient to follow up with their PCP in the next 1-3 days. I explained that the patient should return to the emergency department if they experience any worsening symptoms. Strict return precautions were discussed with the patient. The patient expressed understanding of these instructions. I answered all questions that the patient had. The patient was discharged home in good condition with their prescriptions and follow up information. Undiagnosed new problem with uncertain prognosis? @ -No Drug Therapy requiring intensive monitoring for toxicity (Heparin, Nitro, Insulin, Cardizem)? @ -No Were any procedures done? @ -No Diagnosis/symptom? @ -Headache, chronic pain Acute, or Chronic, or Acute on Chronic? @ -Acute on chronic Uncomplicated (without systemic symptoms) or Complicated (systemic symptoms)? @ -Uncomplicated Side effects of treatment? @ -No Exacerbation, Progression, or Severe Exacerbation? @ -No Poses a threat to life or bodily function? How? (Chest pain, [place], [place], pneumonia, PE, COPD, DKA, ARF, appy, cholecystitis, CVA, Diverticulitis, Homicidal, Suicidal, threat to staff... and all critical care pts) @ -Unlikely Disposition Clinical Impression: Chronic headache Disposition: HOME SELF-CARE Condition: Good Instructions (If sedation given, give patient instructions): Acute Headache (ED) Is patient prescribed a controlled substance at d/c from ED?: No Referrals: José Reece MD [Primary Care Provider] - 1-2 days Time of Disposition: 23:27
[2023-10-27] MEDS: HYDROmorphone 0.5 MG/0.5 ML SYRINGE IVP STA (00:28)
[2023-10-27 00:31] VITALS: BP 138/86; PULSE 100; RESP 18
== END 2023-10-27 00:43 | disposition home or self-care (01) ==
LOC: EC 20:22
DX: G89.29 Other chronic pain (principal); Z87.891 Personal history of nicotine dependence; Z88.0 Allergy status to penicillin; Z88.1 Allergy status to other antibiotic agents; Z88.2 Allergy status to sulfonamides; Z88.5 Allergy status to narcotic agent; Z88.6 Allergy status to analgesic agent; Z88.8 Allergy status to other drugs, medicaments and biological substances; Z91.040 Latex allergy status; Z91.048 Other nonmedicinal substance allergy status; Z91.018 Allergy to other foods; Z86.69 Personal history of other diseases of the nervous system and sense organs
CPT/HCPCS: 99284; 96374; 96375 ×3; 96376; 96361; 70450; J2270; J1200; J2405; J1170 ×2; J1642

== ENCOUNTER 2023-10-31 16:54 | Emergency (ER) | payer OTHER ==
[2023-10-31 17:12] VITALS: RESP 18; TEMP 98
[2023-10-31] MEDS: diphenhydrAMINE 50 MG/ML 1 ML VIAL IVP STA (19:45)
[2023-10-31] MEDS: HYDROmorphone 1 MG/ML 1 ML SYRINGE IVP STA (19:45)
[2023-10-31] MEDS: ONDANSETRON 4 MG/2 ML VIAL IVP STA (19:46)
[2023-10-31] MEDS: SODIUM CHLORIDE 0.9% 1,000 ML IV STA (19:46)
[2023-10-31] MEDS: HYDROmorphone 0.5 MG/0.5 ML SYRINGE IVP STA (20:45)
[2023-10-31 20:49] VITALS: BP 169/104; PULSE 83
--- NOTE | 2023-10-31 21:16 | ED ---
General Adult HPI - General Chief complaint: Headache Stated complaint: Migraine,N/V Time Seen by Provider: 10/31/23 19:01 Source: patient, RN notes reviewed Mode of arrival: ambulatory Limitations: no limitations - History of Present Illness Initial comments: Is a 53-year-old female well-known to our emergency department presenting with migraine headache. This is a typical migraine headache for her. Is asking for symptomatic relief. Does have photophobia. Denies any emesis but does endorse mild nausea. Denies any other acute complaints including fevers, chills, cough. States she attempted to take her normal migraine medications with mild relief. Presents for further evaluation at this time. - Related Data Home Medications Medication Instructions Recorded Confirmed Omeprazole [PriLOSEC] 20 mg PO HS 12/15/20 09/07/23 Thiamine [Vitamin B-1] 100 mg PO HS 01/04/21 09/07/23 Atorvastatin [Lipitor] 40 mg PO HS 07/20/21 09/07/23 DULoxetine HCL [Cymbalta] 60 mg PO HS 07/20/21 09/07/23 Atogepant [Qulipta] 60 mg PO HS 06/03/22 09/07/23 Cyclobenzaprine [Flexeril] 10 mg PO TID PRN 06/03/22 09/07/23 HYDROcodone/APAP 10-325MG [[place] 1 tab PO TID PRN 06/03/22 09/07/23 10-325] Aspirin 81 mg PO HS 08/29/22 09/07/23 Clopidogrel [Plavix] 75 mg PO HS 08/29/22 09/07/23 Hyoscyamine Sulfate [Levsin-Sl] 0.125 mg SL HS 08/29/22 09/07/23 Cyanocobalamin (Vitamin B-12) 2,000 mcg PO HS 09/07/23 09/07/23 [Vitamin B-12] Linaclotide [Linzess] 145 mcg PO HS 09/07/23 09/07/23 Multivitamins, Thera [Multivitamin 1 tab PO HS 09/07/23 09/07/23 (formulary)] Pantoprazole Sodium [Protonix] 40 mg PO HS 09/07/23 09/07/23 Potassium Gluconate 99 mg PO HS 09/07/23 09/07/23 Pregabalin [Lyrica] 75 mg PO BID 09/07/23 09/07/23 Sennosides [Senokot] 8.6 mg PO BID 09/07/23 09/07/23 Simethicone Chew [Mylicon Chew] 80 mg PO Q4H PRN 09/07/23 09/07/23 Sucralfate [Carafate] 1 gm PO HS 09/07/23 09/07/23 Zavegepant HCl [Zavzpret] 1 spray NASAL DAILY PRN 09/07/23 09/07/23 bisacodyL [Dulcolax] 10 mg RECTAL HS PRN 09/07/23 09/07/23 polyethylene glycoL 3350 [Miralax] 17 gm PO BID 09/07/23 09/07/23 Allergies Allergy/AdvReac Type Severity Reaction Status Date / Time dihydroergotamine Allergy Unknown Unknown Verified 10/31/23 17:12 [From Migranal] buprenorphine Allergy Rash/Hives Verified 10/31/23 17:12 gabapentin [From Neurontin] Allergy Itching/Swe Verified 10/31/23 17:12 lling latex Allergy Anaphylaxis Verified 10/31/23 17:12 naproxen [From Naprosyn] Allergy Anaphylaxis Verified 10/31/23 17:12 Penicillins Allergy Anaphylaxis Verified 10/31/23 17:12 prednisone Allergy Swelling Verified 10/31/23 17:12 quetiapine fumarate Allergy Itching, Verified 10/31/23 17:12 [From Seroquel] leg cramps rofecoxib [From Vioxx] Allergy Itching, Verified 10/31/23 17:12 leg cramps terfenadine [From Seldane] Allergy Rash/Hives Verified 10/31/23 17:12 vancomycin Allergy Rash/Hives/Swelling Verified 10/31/23 17:12 @IV site calcium carbonate [From DHEA] AdvReac Chest Pain Verified 10/31/23 17:12 calcium phosphate,dibasic AdvReac Chest Pain Verified 10/31/23 17:12 [From DHEA] clindamycin AdvReac muscle Verified 10/31/23 17:12 cramps clonidine AdvReac fast Verified 10/31/23 17:12 heartbeat, migraine dextromethorphan HBr AdvReac face/neck Verified 10/31/23 17:12 [From NyQuil] flushing diazepam [From Valium] AdvReac Nausea & Verified 10/31/23 17:12 Vomiting divalproex sodium AdvReac Nausea & Verified 10/31/23 17:12 [From Depakote] Vomiting doxylamine [From NyQuil] AdvReac face "beet Verified 10/31/23 17:12 red", elevated temp. ibuprofen [From Motrin] AdvReac abdominal Verified 10/31/23 17:12 & muscle cramps indomethacin [From Indocin] AdvReac Abdominal Verified 10/31/23 17:12 Pain,N/V ketorolac tromethamine AdvReac "built up Verified 10/31/23 17:12 [From Toradol] in system", had to be given something to reverse lorazepam [From Ativan] AdvReac Nausea & Verified 10/31/23 17:12 Vomiting memantine [From Namenda] AdvReac Itching Verified 10/31/23 17:12 metoclopramide HCl AdvReac muscle Verified 10/31/23 17:12 [From Reglan] cramps nortriptyline [From Pamelor] AdvReac Chest Pain Verified 10/31/23 17:12 prasterone (DHEA) [From DHEA] AdvReac Chest Pain Verified 10/31/23 17:12 prochlorperazine AdvReac leg Verified 10/31/23 17:12 [From Compazine] cramping propranolol AdvReac Chest Pain Verified 10/31/23 17:12 pseudoephedrine HCl AdvReac face "beet Verified 10/31/23 17:12 [From NyQuil] red", elevated temp. quetiapine [From Seroquel] AdvReac leg Verified 10/31/23 17:12 cramping sumatriptan [From Imitrex] AdvReac migrane Verified 10/31/23 17:12 sumatriptan succinate AdvReac migrane Verified 10/31/23 17:12 [From Imitrex] topiramate [From Topamax] AdvReac "built up Verified 10/31/23 17:12 in system", had to be given something to reverse tramadol AdvReac Nausea & Verified 10/31/23 17:12 Vomiting/LEG CRAMPS/HEART FLUTTERS trazodone AdvReac "built up Verified 10/31/23 17:12 in system", had to be given something to reverse zolpidem tartrate AdvReac "Became Verified 10/31/23 17:12 [From Ambien] violent with no memory" zonisamide [From Zonegran] AdvReac inability Verified 10/31/23 17:12 to eat artificial sweetener AdvReac SEVERE Uncoded 10/31/23 17:12 MIGRAINE HEADACHE prosyn AdvReac Itching Uncoded 10/31/23 17:12 Review of Systems ROS Statement: Those systems with pertinent positive or pertinent negative responses have been documented in the HPI. Review of Systems: CONST: Denies fever EYES: Denies blurry vision ENT: Denies nasal congestion C/V: Denies Chest pain RESP: Denies shortness of breath GI: Denies abdominal pain : Denies dysuria SKIN: Denies rash. MSK: Denies joint pain. NEURO: Endorses headache ROS Other: All systems not noted in ROS Statement are negative. Past Medical History Past Medical History: Hyperlipidemia, Hypertension, Seizure Disorder Additional Past Medical History / Comment(s): Migraines, viral meningitis x3 as a child, 1995, 2000, chronic back pain, nerve blocks 08/2016 and 12/2016. Last seizure 10/10/2020, "ABSENT SEIZURES. HX TACHYCARDIA, GBS/CIPD, PTSD. History of Any Multi-Drug Resistant Organisms: None Reported Past Surgical History: Appendectomy, Section, Cholecystectomy, Heart Catheterization, Heart Catheterization With Stent, Hernia Repair, Hysterectomy, Orthopedic Surgery, Tonsillectomy, Tubal Ligation Additional Past Surgical History / Comment(s): Hiatal Hernia, umbilical hernia repair, left rotator cuff repair, bilateral knee scopes, pain clinic procedures- occipital nerve block. abd exploratory sx(endometreosis), 3 abd scopes 1981, 1989, 1991), lumbar puncture. EGD. nerve biopsy, salvalry gland biospy Past Anesthesia/Blood Transfusion Reactions: No Reported Reaction Additional Past Anesthesia/Blood Transfusion Reaction / Comment(s): Michaela strophobic Date of Last Stent Placement:: 06/03/2022 Past Psychological History: Anxiety, Bipolar, Panic Disorder, PTSD Smoking Status: Former smoker Past Alcohol Use History: None Reported Past Drug Use History: None Reported - Past Family History Mother Family Medical History: Cancer, Dementia, Diabetes Mellitus, GERD/Reflux, Hyperlipidemia, Hypertension, Thyroid Disorder Additional Family Medical History / Comment(s): CABG Father History Unknown: Yes Family Medical History: No Reported History General Exam - General Exam Comments Initial Comments: General: Appears in no acute distress. HEAD: Normal with no signs of head trauma. EYES: PERRLA, EOMI, conjunctiva normal, no discharge. Pupils 3 mm and equal bilaterally ENT: Hearing grossly intact, normal oropharynx. RESPIRATORY: Clear breath sounds bilaterally. No wheezes, rales, or rhonchi. C/V: Regular rate and rhythm. S1 and S2 auscultated, no edema, peripheral pulses 2+ and intact throughout ABD: Abd is soft, nontender, nondistended EXT: Normal range of motion, no obvious deformity SKIN: No rashes or lesions observed on exposed skin. NEURO: Alert and oriented x 4. Cranial nerves II through XII are intact. No focal deficits. GCS of 15 Limitations: no limitations Course Vital Signs 10/31/23 10/31/23 17:09 20:11 Temperature 98 F Pulse Rate 87 83 Respiratory 18 18 Rate Blood Pressure 179/117 169/104 O2 Sat by Pulse 99 98 Oximetry Medical Decision Making - Medical Decision Making Was pt. sent in by a medical professional or institution (, PA, SALES TRAINER, urgent care, hospital, or intermediate...) When possible be specific @ -No Did you speak to anyone other than the patient for history (EMS, parent, family, police, friend...)? What history was obtained from this source @ -No Did you review nursing and triage notes (agree or disagree)? Why? @ -I reviewed and agree with nursing and triage notes Were old charts reviewed (outside hosp., previous admission, EMS record, old EKG, old radiological studies, urgent care reports/EKG's, intermediate records)? Report findings @ -Reviewed patient's previous ER visits with me most recently seen the patient on 10/26/23 for similar complaints. No head trauma this time. Differential Diagnosis (chest pain, altered mental status, abdominal pain women, abdominal pain men, vaginal bleeding, weakness, fever, dyspnea, syncope, headache, dizziness, GI bleed, back pain, seizure, CVA, palpatations, mental health, musculoskeletal)? @ -Differential Headache: Migraine, tension, cluster, carbon monoxide, central venous thrombosis, pension karma temporal arteritis, acute closure glaucoma, intercranial hemorrhage, mastoiditis, sinusitis, head injury, this is not meant to be an all-inclusive list. EKG interpreted by me (3pts min.). @ -None done X-rays interpreted by me (1pt min.). @ -None done CT interpreted by me (1pt min.). @ -None done U/S interpreted by me (1pt. min.). @ -None done What testing was considered but not performed or refused? (CT, X-rays, U/S, labs)? Why? @ -None What meds were considered but not given or refused? Why? @ -None Did you discuss the management of the patient with other professionals (professionals i.e. , PA, SALES TRAINER, lab, RT, psych nurse, social sciences professor, stick inserter, teacher, air defence officer, case investigator)? Give summary @ -No Was smoking cessation discussed for >3mins.? @ -No Was critical care preformed (if so, how long)? @ -No Were there social determinants of health that impacted care today? How? (Homelessness, low income, unemployed, alcoholism, drug addiction, transportation, low edu. Level, literacy, decrease access to med. care, longterm, rehab)? @ -No Was there de-escalation of care discussed even if they declined (Discuss DNR or withdrawal of care, Hospice)? DNR status @ -No What co-morbidities impacted this encounter? (DM, HTN, Smoking, COPD, CAD, Cancer, CVA, ARF, Chemo, Hep., AIDS, mental health diagnosis, sleep apnea, morbid obesity)? @ -Migraine headache Was patient admitted / discharged? Hospital course, mention meds given and route, prescriptions, significant lab abnormalities, going to OR and other pertinent info. @ -Based on the patient's presentation and physical exam, patient presents emergency department complaining of migraine headaches. Vital signs are within acceptable limits. Patient is a frequent visitor to our emergency department for similar complaints. This is typical headache for her. She will be given migraine cocktail. She will be subsequently reevaluated. She was in agreement this plan. Following migraine cocktail and pain medications, patient is feeling improved. She will be discharged home at this time. I instructed the patient to follow up with their PCP in the next 1-3 days. I explained that the patient should return to the emergency department if they experience any worsening symptoms. Strict return precautions were discussed with the patient. The patient expressed understanding of these instructions. I answered all questions that the patient had. The patient was discharged home in good condition with their prescriptions and follow up information. Undiagnosed new problem with uncertain prognosis? @ -No Drug Therapy requiring intensive monitoring for toxicity (Heparin, Nitro, Insulin, Cardizem)? @ -No Were any procedures done? @ -No Diagnosis/symptom? @ -Migraine headache Acute, or Chronic, or Acute on Chronic? @ -Acute on chronic Uncomplicated (without systemic symptoms) or Complicated (systemic symptoms)? @ -Uncomplicated Side effects of treatment? @ -No Exacerbation, Progression, or Severe Exacerbation? @ -No Poses a threat to life or bodily function? How? (Chest pain, [place], [place], pneumonia, PE, COPD, DKA, ARF, appy, cholecystitis, CVA, Diverticulitis, Homicidal, Suicidal, threat to staff... and all critical care pts) @ -Unlikely Disposition Clinical Impression: Migraine Disposition: HOME SELF-CARE Condition: Good Instructions (If sedation given, give patient instructions): Migraine Headache (ED) Is patient prescribed a controlled substance at d/c from ED?: No Referrals: José Reece MD [Primary Care Provider] - 1-2 days Time of Disposition: 21:16
[2023-10-31] MEDS: ORPHENADRINE 30 MG/ML 2 ML VIAL IVP STA (21:21)
== END 2023-10-31 21:28 | disposition home or self-care (01) ==
LOC: EC 16:54
DX: G43.909 Migraine, unspecified, not intractable, without status migrainosus (principal); Z88.0 Allergy status to penicillin; Z88.1 Allergy status to other antibiotic agents; Z88.2 Allergy status to sulfonamides; Z88.5 Allergy status to narcotic agent; Z88.6 Allergy status to analgesic agent; Z88.8 Allergy status to other drugs, medicaments and biological substances; Z91.040 Latex allergy status; Z91.09 Other allergy status, other than to drugs and biological substances; Z87.891 Personal history of nicotine dependence
CPT/HCPCS: 99283; 96374; 96375 ×3; 96376; 96361; J1200; J2360; J2405; J1170 ×2

== ENCOUNTER 2023-11-12 18:35 | Emergency (ER) | payer OTHER ==
[2023-11-12] MEDS ORDERED: HYDROmorphone 1 MG/ML 1 ML SYRINGE ONE ×2 (19:29→21:59)
[2023-11-12] MEDS ORDERED: ONDANSETRON ODT 4 MG TAB ONE (19:29)
[2023-11-12] MEDS ORDERED: ORPHENADRINE 30 MG/ML 2 ML VIAL ONE (22:01)
== END 2023-11-12 22:00 | disposition home or self-care (01) ==
LOC: EC 18:35
CPT/HCPCS: 81003; 96372; 99283

== ENCOUNTER 2023-11-14 16:04 | Emergency (ER) | payer OTHER ==
[2023-11-14] MEDS ORDERED: HYDROmorphone 1 MG/ML 1 ML SYRINGE ONE ×2 (16:55→18:40)
[2023-11-14] MEDS ORDERED: ONDANSETRON 4 MG/2 ML VIAL ONE (18:11)
[2023-11-14] MEDS ORDERED: LIDOCAINE 4% PATCH TOPICAL ONE (20:18)
--- NOTE | 2023-12-15 10:06 | CT ---
EXAM: CT abdomen and pelvis without contrast. DATE: 11/14/2023 INDICATION: Patient age:BALTAZAR PAVON : 1970 Reason for study: LEFT FLANK PAIN, ABDOMINAL PAIN DLP:524.3 NO CONTRAST COMPARISON: None, please note PACS downtime occurred during the radiologist interpretation of these i mages with limited priors/reports.. TECHNIQUE: CT abdomen pelvis without contrast with axial imaging and sagittal and coronal reformats without IV o r oral contrast. Lack of IV or oral contrast limits evaluation of solid and hollow organ viscera.. On e or more CT dose reduction strategies were utilized during this examination. Total DLP administered was 524.3 mGycm. FINDINGS: LOWER CHEST: Unremarkable ABDOMEN LIVER: Unremarkable GALLBLADDER AND BILE DUCTS: The gallbladder is surgically absent. PANCREAS: Unremarkable. SPLEEN: Unremarkable. ADRENAL GLANDS: Unremarkable. KIDNEYS AND URETERS: No evidence of hydronephrosis or renal calculus. The ureters are unremarkable. PELVIS BLADDER: Unremarkable REPRODUCTIVE: The uterus is surgically absent. ABDOMEN & PELVIS STOMACH AND BOWEL: Postsurgical changes of the gastroesophageal junction. Stomach and duodenum are un remarkable. No evidence of bowel obstruction. Scattered colonic diverticula are present. PERITONEUM: No evidence of pneumoperitoneum or free fluid. VASCULATURE: No evidence of aortic aneurysm. MUSCULOSKELETAL: Mild disc degeneration changes are present throughout the thoracolumbar spine. LYMPH NODES: No gross evidence for lymphadenopathy. SOFT TISSUE/ABDOMINAL WALL: Unremarkable IMPRESSION: 1. No evidence for obstructive uropathy or renal calculus. 2. Colonic diverticulosis. No evidence for active inflammation.
== END 2023-11-14 20:29 | disposition home or self-care (01) ==
LOC: EC 16:04
DX: R10.9 Unspecified abdominal pain (principal)
CPT/HCPCS: 74176; 96374; 96375; 96376; 99284

== ENCOUNTER 2023-11-19 19:15 | Emergency (ER) | payer OTHER ==
[2023-11-20] MEDS ORDERED: HYDROmorphone 1 MG/ML 1 ML SYRINGE ONE ×2 (00:45→03:06)
--- NOTE | 2023-12-23 11:13 | XR ---
Site ID [facility] Patient Lily Morley ID [id number] Order # Procedure XR chest 2V EXAMINATION TYPE: XR chest 2V DATE OF EXAM: 11/20/2023 1:18 PM CLINICAL INDICATION: CHEST PAINS X 8 HOURS HX OF GULLIANE STORY SYNDROME COMPARISON: THIS EXAM WAS READ DURING PACS DOWNTIME, NO PRIORS AVAILABLE. TECHNIQUE: XR chest 2V Frontal view of the chest. FINDINGS: Lungs/Pleura: There is no evidence of pleural effusion, focal consolidation, or pneumothorax. Pulmonary vascularity: Unremarkable. Heart/mediastinum: Cardiomediastinal silhouette is unremarkable. Musculoskeletal: No acute osseous pathology. Other findings: None Lines/Tubes: [id number] projecting over the left hemithorax with distal tip at the cavoatrial junction. IMPRESSION: No acute cardiopulmonary disease/process.
== END 2023-11-20 03:17 | disposition home or self-care (01) ==
LOC: EC 19:15
CPT/HCPCS: 71046; 93005; 96374; 96376; 99285

== ENCOUNTER 2023-12-01 16:56 | Emergency (ER) | payer OTHER ==
[2023-12-01 17:00] VITALS: RESP 16; TEMP 97.9
--- NOTE | 2023-12-01 17:43 | ED ---
Headache HPI - General Chief Complaint: Headache Stated Complaint: headache Time Seen by Provider: 12/01/23 17:05 Mode of arrival: ambulatory Limitations: no limitations - History of Present Illness Initial Comments: 53-year-old female present with chief complaint of migraine. Patient has history of migraine. States that today she developed a line near the occipital region of the head that does radiate through towards the front of the head. This is consistent with her regular migraines. She tried her abortive medications without success. States that she had to go to work first and then came here for evaluation and treatment. She had some nausea and vomiting earlier today. No fevers. No neck pain. No weakness. No vision or hearing changes. - Related Data Home Medications Medication Instructions Recorded Confirmed Omeprazole [PriLOSEC] 20 mg PO HS 12/15/20 09/07/23 Thiamine [Vitamin B-1] 100 mg PO HS 01/04/21 09/07/23 Atorvastatin [Lipitor] 40 mg PO HS 07/20/21 09/07/23 DULoxetine HCL [Cymbalta] 60 mg PO HS 07/20/21 09/07/23 Atogepant [Qulipta] 60 mg PO HS 06/03/22 09/07/23 Cyclobenzaprine [Flexeril] 10 mg PO TID PRN 06/03/22 09/07/23 HYDROcodone/APAP 10-325MG [[place] 1 tab PO TID PRN 06/03/22 09/07/23 10-325] Aspirin 81 mg PO HS 08/29/22 09/07/23 Clopidogrel [Plavix] 75 mg PO HS 08/29/22 09/07/23 Hyoscyamine Sulfate [Levsin-Sl] 0.125 mg SL HS 08/29/22 09/07/23 Cyanocobalamin (Vitamin B-12) 2,000 mcg PO HS 09/07/23 09/07/23 [Vitamin B-12] Linaclotide [Linzess] 145 mcg PO HS 09/07/23 09/07/23 Multivitamins, Thera [Multivitamin 1 tab PO HS 09/07/23 09/07/23 (formulary)] Pantoprazole Sodium [Protonix] 40 mg PO HS 09/07/23 09/07/23 Potassium Gluconate 99 mg PO HS 09/07/23 09/07/23 Pregabalin [Lyrica] 75 mg PO BID 09/07/23 09/07/23 Sennosides [Senokot] 8.6 mg PO BID 09/07/23 09/07/23 Simethicone Chew [Mylicon Chew] 80 mg PO Q4H PRN 09/07/23 09/07/23 Sucralfate [Carafate] 1 gm PO HS 09/07/23 09/07/23 Zavegepant HCl [Zavzpret] 1 spray NASAL DAILY PRN 09/07/23 09/07/23 bisacodyL [Dulcolax] 10 mg RECTAL HS PRN 09/07/23 09/07/23 polyethylene glycoL 3350 [Miralax] 17 gm PO BID 09/07/23 09/07/23 Allergies Allergy/AdvReac Type Severity Reaction Status Date / Time dihydroergotamine Allergy Unknown Unknown Verified 10/31/23 17:12 [From Migranal] buprenorphine Allergy Rash/Hives Verified 10/31/23 17:12 gabapentin [From Neurontin] Allergy Itching/Swe Verified 10/31/23 17:12 lling latex Allergy Anaphylaxis Verified 10/31/23 17:12 naproxen [From Naprosyn] Allergy Anaphylaxis Verified 10/31/23 17:12 Penicillins Allergy Anaphylaxis Verified 10/31/23 17:12 prednisone Allergy Swelling Verified 10/31/23 17:12 quetiapine fumarate Allergy Itching, Verified 10/31/23 17:12 [From Seroquel] leg cramps rofecoxib [From Vioxx] Allergy Itching, Verified 10/31/23 17:12 leg cramps terfenadine [From Seldane] Allergy Rash/Hives Verified 10/31/23 17:12 vancomycin Allergy Rash/Hives/Swelling Verified 10/31/23 17:12 @IV site calcium carbonate [From DHEA] AdvReac Chest Pain Verified 10/31/23 17:12 calcium phosphate,dibasic AdvReac Chest Pain Verified 10/31/23 17:12 [From DHEA] clindamycin AdvReac muscle Verified 10/31/23 17:12 cramps clonidine AdvReac fast Verified 10/31/23 17:12 heartbeat, migraine dextromethorphan HBr AdvReac face/neck Verified 10/31/23 17:12 [From NyQuil] flushing diazepam [From Valium] AdvReac Nausea & Verified 10/31/23 17:12 Vomiting divalproex sodium AdvReac Nausea & Verified 10/31/23 17:12 [From Depakote] Vomiting doxylamine [From NyQuil] AdvReac face "beet Verified 10/31/23 17:12 red", elevated temp. ibuprofen [From Motrin] AdvReac abdominal Verified 10/31/23 17:12 & muscle cramps indomethacin [From Indocin] AdvReac Abdominal Verified 10/31/23 17:12 Pain,N/V ketorolac tromethamine AdvReac "built up Verified 10/31/23 17:12 [From Toradol] in system", had to be given something to reverse lorazepam [From Ativan] AdvReac Nausea & Verified 10/31/23 17:12 Vomiting memantine [From Namenda] AdvReac Itching Verified 10/31/23 17:12 metoclopramide HCl AdvReac muscle Verified 10/31/23 17:12 [From Reglan] cramps nortriptyline [From Pamelor] AdvReac Chest Pain Verified 10/31/23 17:12 prasterone (DHEA) [From DHEA] AdvReac Chest Pain Verified 10/31/23 17:12 prochlorperazine AdvReac leg Verified 10/31/23 17:12 [From Compazine] cramping propranolol AdvReac Chest Pain Verified 10/31/23 17:12 pseudoephedrine HCl AdvReac face "beet Verified 10/31/23 17:12 [From NyQuil] red", elevated temp. quetiapine [From Seroquel] AdvReac leg Verified 10/31/23 17:12 cramping sumatriptan [From Imitrex] AdvReac migrane Verified 10/31/23 17:12 sumatriptan succinate AdvReac migrane Verified 10/31/23 17:12 [From Imitrex] topiramate [From Topamax] AdvReac "built up Verified 10/31/23 17:12 in system", had to be given something to reverse tramadol AdvReac Nausea & Verified 10/31/23 17:12 Vomiting/LEG CRAMPS/HEART FLUTTERS trazodone AdvReac "built up Verified 10/31/23 17:12 in system", had to be given something to reverse zolpidem tartrate AdvReac "Became Verified 10/31/23 17:12 [From Ambien] violent with no memory" zonisamide [From Zonegran] AdvReac inability Verified 10/31/23 17:12 to eat artificial sweetener AdvReac SEVERE Uncoded 10/31/23 17:12 MIGRAINE HEADACHE prosyn AdvReac Itching Uncoded 10/31/23 17:12 Review of Systems ROS Statement: Those systems with pertinent positive or pertinent negative responses have been documented in the HPI. ROS Other: All systems not noted in ROS Statement are negative. Past Medical History Past Medical History: Hyperlipidemia, Hypertension, Seizure Disorder Additional Past Medical History / Comment(s): Migraines, viral meningitis x3 as a child, 1995, 2000, chronic back pain, nerve blocks 08/2016 and 12/2016. Last seizure 10/10/2020, "ABSENT SEIZURES. HX TACHYCARDIA, GBS/CIPD, PTSD. History of Any Multi-Drug Resistant Organisms: None Reported Past Surgical History: Appendectomy, Section, Cholecystectomy, Heart Catheterization, Heart Catheterization With Stent, Hernia Repair, Hysterectomy, Orthopedic Surgery, Tonsillectomy, Tubal Ligation Additional Past Surgical History / Comment(s): Hiatal Hernia, umbilical hernia repair, left rotator cuff repair, bilateral knee scopes, pain clinic procedures-occipital nerve block. abd exploratory sx(endometreosis), 3 abd scopes 1981, 1989, 1991), lumbar puncture. EGD. nerve biopsy, salvalry gland biospy Past Anesthesia/Blood Transfusion Reactions: No Reported Reaction Additional Past Anesthesia/Blood Transfusion Reaction / Comment(s): Claustrophobic Date of Last Stent Placement:: 06/03/2022 Past Psychological History: Anxiety, Bipolar, Panic Disorder, PTSD Smoking Status: Former smoker Past Alcohol Use History: None Reported Past Drug Use History: None Reported - Past Family History Mother Family Medical History: Cancer, Dementia, Diabetes Mellitus, GERD/Reflux, Hyperlipidemia, Hypertension, Thyroid Disorder Additional Family Medical History / Comment(s): CABG Father History Unknown: Yes Family Medical History: No Reported History General Exam Limitations: no limitations General appearance: alert, in no apparent distress Head exam: Present: atraumatic, normocephalic Eye exam: Present: normal appearance, EOMI Neck exam: Present: normal inspection. Absent: meningismus Respiratory exam: Absent: respiratory distress Cardiovascular Exam: Present: regular rate Neurological exam: Present: alert, oriented X3 Expanded Patient oriented to: Present: person, place, time Speech: Present: fluid speech Eye Response: (4) open spontaneously Motor Response: (6) obeys commands Verbal Response: (5) oriented [place] Total: 15 Psychiatric exam: Present: normal affect, normal mood Skin exam: Present: warm, dry Course Vital Signs 12/01/23 12/01/23 16:58 18:07 Temperature 97.9 F Pulse Rate 85 64 Respiratory 16 16 Rate Blood Pressure 140/98 134/76 O2 Sat by Pulse 98 95 Oximetry Medical Decision Making - Medical Decision Making Was pt. sent in by a medical professional or institution (, PA, REWRITER, urgent care, hospital, or shelter...) When possible be specific @ -No Did you speak to anyone other than the patient for history (EMS, parent, family, police, friend...)? What history was obtained from this source @ -No Did you review nursing and triage notes (agree or disagree)? Why? @ -I reviewed and agree with nursing and triage notes Were old charts reviewed (outside hosp., previous admission, EMS record, old EKG, old radiological studies, urgent care reports/EKG's, shelter records)? Report findings @ -No old charts were reviewed Differential Diagnosis (chest pain, altered mental status, abdominal pain women, abdominal pain men, vaginal bleeding, weakness, fever, dyspnea, syncope, headache, dizziness, GI bleed, back pain, seizure, CVA, palpatations, mental health, musculoskeletal)? @ -[facility] Differential Headache: Migraine, tension, cluster, carbon monoxide, central venous thrombosis, pension karma temporal arteritis, acute closure glaucoma, intercranial hemorrhage, masto iditis, sinusitis, head injury this is not meant to be an all-inclusive list. EKG interpreted by me (3pts min.). @ -As above X-rays interpreted by me (1pt min.). @ -None done CT interpreted by me (1pt min.). @ -None done U/S interpreted by me (1pt. min.). @ -None done What testing was considered but not performed or refused? (CT, X-rays, U/S, labs)? Why? @ -None What meds were considered but not given or refused? Why? @ -None Did you discuss the management of the patient with other professionals (professionals i.e. , PA, REWRITER, lab, RT, psych nurse, 7th grade social studies teacher, metal casket assembler, teacher, information security officer, case fitter)? Give summary @ -No Was smoking cessation discussed for >3mins.? @ -No Was critical care preformed (if so, how long)? @ -No Were there social determinants of health that impacted care today? How? (Homelessness, low income, unemployed, alcoholism, drug addiction, transportation, low edu. Level, literacy, decrease access to med. care, penitentiary, rehab)? @ -No Was there de-escalation of care discussed even if they declined (Discuss DNR or withdrawal of care, Hospice)? DNR status @ -No What co-morbidities impacted this encounter? (DM, HTN, Smoking, COPD, CAD, Cancer, CVA, ARF, Chemo, Hep., AIDS, mental health diagnosis, sleep apnea, morbid obesity)? @ -None Was patient admitted / discharged? Hospital course, mention meds given and route, prescriptions, significant lab abnormalities, going to OR and other pertinent info. @ -53-year-old female with chief complaint of migraine. History of migraines. Patient is given pain medication and instructed to follow-up with her neurologist. Discharged home. Follow-up with PCP. Report back to ER with any new or worsening symptoms. Discussed return parameters and answered all questions. Patient conveyed verbal understanding and agreed to the plan. I discussed this case in detail with my attending Dr. Plascencia Undiagnosed new problem with uncertain prognosis? @ -No Drug Therapy requiring intensive monitoring for toxicity (Heparin, Nitro, Insulin, Cardizem)? @ -No Were any procedures done? @ -No Diagnosis/symptom? @ -Migraine Acute, or Chronic, or Acute on Chronic? @ -Acute on chronic Uncomplicated (without systemic symptoms) or Complicated (systemic symptoms)? @ -uncomplicated Side effects of treatment? @ -No Exacerbation, Progression, or Severe Exacerbation? @ -No Poses a threat to life or bodily function? How? (Chest pain, [place], [place], pneumonia, PE, COPD, DKA, ARF, appy, cholecystitis, CVA, Diverticulitis, Homicidal, Suicidal, threat to staff... and all critical care pts) @ -Low likelihood Disposition Clinical Impression: Migraine Disposition: HOME SELF-CARE Condition: Good Instructions (If sedation given, give patient instructions): Migraine Headache (ED) Additional Instructions: Follow-up with PCP. Report back to ER with any new or worsening symptoms. Is patient prescribed a controlled substance at d/c from ED?: No Referrals: José Reece MD [Primary Care Provider] - 1-2 days Time of Disposition: 17:43
[2023-12-01] MEDS: HYDROmorphone 1 MG/ML 1 ML SYRINGE IM STA (17:51)
[2023-12-01 18:09] VITALS: BP 134/76; PULSE 64
== END 2023-12-01 18:09 | disposition home or self-care (01) ==
LOC: EC 16:56
DX: R51.9 Headache, unspecified
CPT/HCPCS: 96372; 99283

== ENCOUNTER 2023-12-09 16:11 | Emergency (ER) | payer OTHER ==
--- NOTE | 2023-12-09 16:33 | ED ---
Back Pain HPI - General Source: patient, RN notes reviewed Limitations: no limitations <Andreia Simon - Last Filed: 12/09/23 16:30> <Zay Bergeron - Last Filed: 12/09/23 17:54> - General Chief Complaint: Back Pain/Injury Stated Complaint: Back pain Time Seen by Provider: 12/09/23 16:30 - History of Present Illness Initial Comments: Quick note: 53-year-old female presented to the ER with a chief complaint of back pain. Patient states that she was picking up toys off of the ground and when attempting to stand up she could not. She states her back "locked up on her". She states she urinated and defecated on herself around 230/3 PM around time of incident. She states her genitalia are currently numb but states she also has a Guillain barre syndrome. (Andreia Simon) Dictation was produced using [employer] dictation software. please excuse any grammatical, word or spelling errors. Chief Complaint: 53-year-old female well-known to the emergency department for chronic pain presents to the ER for back pain History of Present Illness: Patient is a 53-year-old female she is well-known to the emergency department for multiple visitations for acute on chronic headache. Today she states that she is here for back pain. States that she was bending over when all of a sudden she started to feel a pain in her mid lower back. States that the pain is starting to go up into her upper neck. No radiation of symptoms down her legs. Denies any bowel or bladder control issues. 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 Those systems with pertinent positive or negative responses have been documented in the HPI. All other systems are other negative and/or noncontributory. (Zay Bergeron) - Related Data Home Medications Medication Instructions Recorded Confirmed Omeprazole [PriLOSEC] 20 mg PO HS 12/15/20 09/07/23 Thiamine [Vitamin B-1] 100 mg PO HS 01/04/21 09/07/23 Atorvastatin [Lipitor] 40 mg PO HS 07/20/21 09/07/23 DULoxetine HCL [Cymbalta] 60 mg PO HS 07/20/21 09/07/23 Atogepant [Qulipta] 60 mg PO HS 06/03/22 09/07/23 Cyclobenzaprine [Flexeril] 10 mg PO TID PRN 06/03/22 09/07/23 HYDROcodone/APAP 10-325MG [[place] 1 tab PO TID PRN 06/03/22 09/07/23 10-325] Aspirin 81 mg PO HS 08/29/22 09/07/23 Clopidogrel [Plavix] 75 mg PO HS 08/29/22 09/07/23 Hyoscyamine Sulfate [Levsin-Sl] 0.125 mg SL HS 08/29/22 09/07/23 Cyanocobalamin (Vitamin B-12) 2,000 mcg PO HS 09/07/23 09/07/23 [Vitamin B-12] Linaclotide [Linzess] 145 mcg PO HS 09/07/23 09/07/23 Multivitamins, Thera [Multivitamin 1 tab PO HS 09/07/23 09/07/23 (formulary)] Pantoprazole Sodium [Protonix] 40 mg PO HS 09/07/23 09/07/23 Potassium Gluconate 99 mg PO HS 09/07/23 09/07/23 Pregabalin [Lyrica] 75 mg PO BID 09/07/23 09/07/23 Sennosides [Senokot] 8.6 mg PO BID 09/07/23 09/07/23 Simethicone Chew [Mylicon Chew] 80 mg PO Q4H PRN 09/07/23 09/07/23 Sucralfate [Carafate] 1 gm PO HS 09/07/23 09/07/23 Zavegepant HCl [Zavzpret] 1 spray NASAL DAILY PRN 09/07/23 09/07/23 bisacodyL [Dulcolax] 10 mg RECTAL HS PRN 09/07/23 09/07/23 polyethylene glycoL 3350 [Miralax] 17 gm PO BID 09/07/23 09/07/23 Allergies Allergy/AdvReac Type Severity Reaction Status Date / Time dihydroergotamine Allergy Unknown Unknown Verified 12/09/23 16:23 [From Migranal] buprenorphine Allergy Rash/Hives Verified 12/09/23 16:23 gabapentin [From Neurontin] Allergy Itching/Swe Verified 12/09/23 16:23 lling latex Allergy Anaphylaxis Verified 12/09/23 16:23 naproxen [From Naprosyn] Allergy Anaphylaxis Verified 12/09/23 16:23 Penicillins Allergy Anaphylaxis Verified 12/09/23 16:23 prednisone Allergy Swelling Verified 12/09/23 16:23 quetiapine fumarate Allergy Itching, Verified 12/09/23 16:23 [From Seroquel] leg cramps rofecoxib [From Vioxx] Allergy Itching, Verified 12/09/23 16:23 leg cramps terfenadine [From Seldane] Allergy Rash/Hives Verified 12/09/23 16:23 vancomycin Allergy Rash/Hives/Swelling Verified 12/09/23 16:23 @IV site calcium carbonate [From DHEA] AdvReac Chest Pain Verified 12/09/23 16:23 calcium phosphate,dibasic AdvReac Chest Pain Verified 12/09/23 16:23 [From DHEA] clindamycin AdvReac muscle Verified 12/09/23 16:23 cramps clonidine AdvReac fast Verified 12/09/23 16:23 heartbeat, migraine dextromethorphan HBr AdvReac face/neck Verified 12/09/23 16:23 [From NyQuil] flushing diazepam [From Valium] AdvReac Nausea & Verified 12/09/23 16:23 Vomiting divalproex sodium AdvReac Nausea & Verified 12/09/23 16:23 [From Depakote] Vomiting doxylamine [From NyQuil] AdvReac face "beet Verified 12/09/23 16:23 red", elevated temp. ibuprofen [From Motrin] AdvReac abdominal Verified 12/09/23 16:23 & muscle cramps indomethacin [From Indocin] AdvReac Abdominal Verified 12/09/23 16:23 Pain,N/V ketorolac tromethamine AdvReac "built up Verified 12/09/23 16:23 [From Toradol] in system", had to be given something to reverse lorazepam [From Ativan] AdvReac Nausea & Verified 12/09/23 16:23 Vomiting memantine [From Namenda] AdvReac Itching Verified 12/09/23 16:23 metoclopramide HCl AdvReac muscle Verified 12/09/23 16:23 [From Reglan] cramps nortriptyline [From Pamelor] AdvReac Chest Pain Verified 12/09/23 16:23 prasterone (DHEA) [From DHEA] AdvReac Chest Pain Verified 12/09/23 16:23 prochlorperazine AdvReac leg Verified 12/09/23 16:23 [From Compazine] cramping propranolol AdvReac Chest Pain Verified 12/09/23 16:23 pseudoephedrine HCl AdvReac face "beet Verified 12/09/23 16:23 [From NyQuil] red", elevated temp. quetiapine [From Seroquel] AdvReac leg Verified 12/09/23 16:23 cramping sumatriptan [From Imitrex] AdvReac migrane Verified 12/09/23 16:23 sumatriptan succinate AdvReac migrane Verified 12/09/23 16:23 [From Imitrex] topiramate [From Topamax] AdvReac "built up Verified 12/09/23 16:23 in system", had to be given something to reverse tramadol AdvReac Nausea & Verified 12/09/23 16:23 Vomiting/LEG CRAMPS/HEART FLUTTERS trazodone AdvReac "built up Verified 12/09/23 16:23 in system", had to be given something to reverse zolpidem tartrate AdvReac "Became Verified 12/09/23 16:23 [From Ambien] violent with no memory" zonisamide [From Zonegran] AdvReac inability Verified 12/09/23 16:23 to eat artificial sweetener AdvReac SEVERE Uncoded 12/09/23 16:23 MIGRAINE HEADACHE prosyn AdvReac Itching Uncoded 12/09/23 16:23 Review of Systems ROS Other: All systems not noted in ROS Statement are negative. <Andreia Simon - Last Filed: 12/09/23 16:30> ROS Other: All systems not noted in ROS Statement are negative. <Zay Bergeron - Last Filed: 12/09/23 17:54> ROS Statement: Those systems with pertinent positive or pertinent negative responses have been documented in the HPI. Past Medical History Past Medical History: Hyperlipidemia, Hypertension, Seizure Disorder Additional Past Medical History / Comment(s): Migraines, viral meningitis x3 as a child, 1995, 2000, chronic back pain, nerve blocks 08/2016 and 12/2016. Last seizure 10/10/2020, "ABSENT SEIZURES. HX TACHYCARDIA, GBS/CIPD, PTSD. History of Any Multi-Drug Resistant Organisms: None Reported Past Surgical History: Appendectomy, Section, Cholecystectomy, Heart Catheterization, Heart Catheterization With Stent, Hernia Repair, Hysterectomy, Orthopedic Surgery, Tonsillectomy, Tubal Ligation Additional Past Surgical History / Comment(s): Hiatal Hernia, umbilical hernia repair, left rotator cuff repair, bilateral knee scopes, pain clinic procedures- occipital nerve block. abd exploratory sx(endometreosis), 3 abd scopes 1981, 1989, 1991), lumbar puncture. EGD. nerve biopsy, salvalry gland biospy Past Anesthesia/Blood Transfusion Reactions: No Reported Reaction Additional Past Anesthesia/Blood Transfusion Reaction / Comment(s): Claustrophobic Date of Last Stent Placement:: 06/03/2022 Past Psychological History: Anxiety, Bipolar, Panic Disorder, PTSD Smoking Status: Former smoker Past Alcohol Use History: None Reported Past Drug Use History: None Reported - Past Family History Mother Family Medical History: Cancer, Dementia, Diabetes Mellitus, GERD/Reflux, Hyperlipidemia, Hypertension, Thyroid Disorder Additional Family Medical History / Comment(s): CABG Father History Unknown: Yes Family Medical History: No Reported History <Andreia Simon - Last Filed: 12/09/23 16:30> General Exam Limitations: no limitations <Andreia Simon - Last Filed: 12/09/23 16:30> <Zay Bergeron - Last Filed: 12/09/23 17:54> - General Exam Comments Initial Comments: Visual Physical Exam Vital signs reviewed General: Well-appearing, nontoxic, no acute distress. Head: Normocephalic, atraumatic Eyes: PERRLA, EOMI ENT: Airway patent Chest: Nonlabored breathing Skin: No visual rash, normal skin tone Neuro: Alert and oriented 3 Musculoskeletal: No gross abnormalities (Andreia Simon) PHYSICAL EXAM: General Impression: Alert and oriented x3, not in acute distress HEENT: Normocephalic atraumatic, extra-ocular movements intact, pupils equal and reactive to light bilaterally, mucous membranes moist. Cardiovascular: Heart regular rate and rhythm Chest: Able to complete full sentences, no retractions, no tachypnea Abdomen: abdomen soft, non-tender, non-distended, no organomegaly Musculoskeletal: Pulses present and equal in all extremities, no peripheral edema, diffuse palpatory tenderness to the paraspinal muscular tissues of the cervical thoracic and lumbar spine Motor: no focal deficits noted Neurological: CN II-XII grossly intact, no focal motor or sensory deficits noted Skin: Intact with no visualized rashes Psych: Normal affect and mood (Zay Bergeron) Course Vital Signs 12/09/23 16:18 Temperature 98.6 F Pulse Rate 111 H Respiratory 20 Rate Blood Pressure 136/92 O2 Sat by Pulse 98 Oximetry Medical Decision Making <Andreia Simon - Last Filed: 12/09/23 16:30> <Zay Bergeron - Last Filed: 12/09/23 17:54> - Medical Decision Making I performed the quick note portion of this chart. Electronically signed by Andreia Simon PA-C (Andreia Simon) Was pt. sent in by a medical professional or institution (SHANTHI Silver, CORROSION CONTROL ENGINEER, urgent care, hospital, or group home...) When possible be specific @ -No Did you speak to anyone other than the patient for history (EMS, parent, family, police, friend...)? What history was obtained from this source @ -No Did you review nursing and triage notes (agree or disagree)? Why? @ -I reviewed and agree with nursing and triage notes Were old charts reviewed (outside hosp., previous admission, EMS record, old EKG, old radiological studies, urgent care reports/EKG's, group home records)? Report findings @ -No old charts were reviewed Differential Diagnosis (chest pain, altered mental status, abdominal pain women, abdominal pain men, vaginal bleeding, musculoskeletal, weakness, fever, dyspnea, syncope, headache, dizziness, GI bleed, back pain, seizure, CVA, palpatations, mental health)? @ -Differential Back Pain: Strain, zoster, cauda equina syndrome, epidural abscess, vertebral osteomyelitis, discitis, fracture, subluxation, disc herniation, DJD, spinal stenosis, dissection, AAA, pancreatitis, peptic ulcer disease, pyelonephritis, kidney stone, this is not meant to be an all-inclusive list. EKG interpreted by me (3pts min.). @ -None done X-rays interpreted by me (1pt min.). @ -X-ray of the lumbar spine shows no fractures CT interpreted by me (1pt min.). @ -None done U/S interpreted by me (1pt. min.). @ -None done What testing was considered but not performed or refused? (CT, X-rays, U/S, labs)? Why? @ -None What meds were considered but not given or refused? Why? @ -None Was smoking cessation discussed for >3mins.? @ -No Were there social determinants of health that impacted care today? How? (Homelessness, low income, unemployed, alcoholism, drug addiction, transportation, low edu. Level, literacy, decrease access to med. care, longterm, rehab)? @ -No Was there de-escalation of care discussed even if they declined (Discuss DNR or withdrawal of care, Hospice)? DNR status @ -No What co-morbidities impacted this encounter? (DM, HTN, Smoking, COPD, CAD, Cancer, CVA, ARF, Chemo, Hep., AIDS, mental health diagnosis, sleep apnea, morbid obesity)? @ -None Was patient admitted / discharged? Hospital course, mention meds given and route, prescriptions, significant lab abnormalities, going to OR and other pertinent info. @ -53-year-old female with chronic pain presents to the emergency department for atraumatic back pain. Patient no high risk features. Vital signs stable. X-ray is unremarkable. Patient given Dilaudid and Zofran. Patient stable for discharge. Did you discuss the management of the patient with other professionals (foreign malcolm i.e. , PA, CORROSION CONTROL ENGINEER, lab, RT, psych nurse, social services manager, terminal block assembler, teacher, student liaison officer, transplant case manager)? Give summary @ -No Was critical care preformed (if so, how long)? @ -No Undiagnosed new problem with uncertain prognosis? @ -No Drug Therapy requiring intensive monitoring for toxicity (Heparin, Nitro, Insulin, Cardizem)? @ -No Were any procedures done? @ -No Diagnosis/symptom? Acute, or Chronic, or Acute on Chronic? Uncomplicated (without systemic symptoms) or Complicated (systemic symptoms)? @ -Acute uncomplicated back strain Side effects of treatment? @ -No Exacerbation, Progression, or Severe Exacerbation? @ -No Poses a threat to life or bodily function? How? (Chest pain, [place], MS, pneumonia, PE, COPD, DKA, ARF, appy, cholecystitis, CVA, Diverticulitis, Homicidal, Richardson icidal, threat to staff... and all critical care pts) @ -No (Zay Bergeron) Disposition <Andreia Simon - Last Filed: 12/09/23 16:30> Is patient prescribed a controlled substance at d/c from ED?: No Time of Disposition: 17:54 <Zay Bergeron - Last Filed: 12/09/23 17:54> Clinical Impression: Back strain Disposition: HOME SELF-CARE Condition: Good Instructions (If sedation given, give patient instructions): Acute Low Back Pain (ED) Referrals: José Reece MD [Primary Care Provider] - 1-2 days
--- NOTE | 2023-12-09 17:05 | XR ---
EXAMINATION TYPE: XR lumbar spine 2 or 3V DATE OF EXAM: 12/09/2023 4:54 PM CLINICAL INDICATION: Female, 53 years old with history of back pain; [facility] COMPARISON: None TECHNIQUE: XR lumbar spine 2 or 3V - Frontal, lateral and coned in L5-S1 lateral views of the spine. FINDINGS: No evidence of any acute osseous pathology. No evidence of loss of vertebral body height i s seen. There is normal alignment of the lumbar vertebral bodies. Scattered disc space narrowing. Mul tilevel marginal osteophyte formation throughout the visualized spine. There is facet joint arthropat hy throughout the spine. Scattered at least mild neural foraminal stenosis. Atherosclerosis of the ar terial vasculature. Contusion the posterior arch of S1. Cholecystectomy clips. IMPRESSION: 1. No acute fracture. 2. Mild to moderate multilevel disc degeneration.
[2023-12-09] MEDS: HYDROmorphone 1 MG/ML 1 ML SYRINGE IM STA (18:01)
[2023-12-09] MEDS: ONDANSETRON ODT 8 MG TAB.RAPDIS PO STA (18:01)
[2023-12-09 18:25] VITALS: BP 138/92; PULSE 87; RESP 18; TEMP 98.3
== END 2023-12-09 18:25 | disposition home or self-care (01) ==
LOC: EC 16:11
DX: M54.50 Low back pain, unspecified
CPT/HCPCS: 72100; 96372; 99283

== ENCOUNTER 2023-12-10 16:21 | Observation (INO) | payer OTHER ==
[2023-12-10] MEDS: HYDROmorphone 1 MG/ML 1 ML SYRINGE IVP STA ×2 (18:04→20:58)
--- NOTE | 2023-12-10 18:31 | CT ---
EXAMINATION TYPE: CT thor lumbar spine wo con DATE OF EXAM: 12/10/2023 COMPARISON: CT abdomen and pelvis 07/10/2022, CT lumbar spine 09/29/2017 HISTORY: Lower midline back pain, no known injury CT DLP: 1018.3 mGycm Automated exposure control for dose reduction was used. Contrast: None Technique: Axial images 3 mm thick sections. Reconstructed coronal and sagittal planes. FINDINGS: No suspicious compression deformities evident. Some mild narrowing of the L2-L3 disc height is presen t, present previously. Previous L2-L3 vacuum disc phenomenon is not identified. Many Disc heights are preserved. Vertebral body heights are preserved. No spinal canal stenosis is evident. No obvious cord compression evident. T9-T10: There is some calcification along the ligamentum flavum may have mild to moderate anterior th ecal sac compression. This comes in close approximation with the spinal cord. No spinal canal stenosi s present. Follow-up with MRI can be performed as clinically indicated. IMPRESSION: 1. LEFT POSTERIOR LATERAL SPURRING AT T9-10. SOME CORD CONTACT WITHOUT DEFORMITY OR STENOSIS MAY BE P RESENT. CONSIDER FOLLOW-UP WITH MRI. 2. DEGENERATIVE DISC CHANGE L2-L3, STABLE FROM COMPARISON
[2023-12-10] MEDS ORDERED: NALOXONE 0.4 MG/ML 1 ML VIAL IV PRN (20:58)
[2023-12-10] MEDS ORDERED: ACETAMINOPHEN TAB 325 MG TAB PO PRN (20:58)
--- NOTE | 2023-12-10 20:58 | ED ---
General Adult HPI - General Chief complaint: Back Pain/Injury Stated complaint: Back Pain,Diarrhea Time Seen by Provider: 12/10/23 16:30 Source: patient Mode of arrival: ambulatory Limitations: no limitations - History of Present Illness Initial comments: 53-year-old female presents emergency department reporting back pain. States that she has had intense back pain since yesterday. She came in yesterday. She was evaluated and sent home after an x-ray. Returns today stating that she has bowel and bladder incontinence. 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 She denies any trauma. No fevers. No history of intravenous drug use. Admits to weakness in her lower extremities as well. No other alleviating, precipitating or modifying factors - Related Data Home Medications Medication Instructions Recorded Confirmed Omeprazole [PriLOSEC] 20 mg PO HS 12/15/20 12/10/23 Thiamine [Vitamin B-1] 100 mg PO HS 01/04/21 12/10/23 Atorvastatin [Lipitor] 40 mg PO HS 07/20/21 12/10/23 DULoxetine HCL [Cymbalta] 60 mg PO HS 07/20/21 12/10/23 Atogepant [Qulipta] 60 mg PO HS 06/03/22 12/10/23 Cyclobenzaprine [Flexeril] 10 mg PO TID PRN 06/03/22 12/10/23 HYDROcodone/APAP 10-325MG [[place] 1 tab PO TID 06/03/22 12/10/23 10-325] Aspirin 81 mg PO HS 08/29/22 12/10/23 Cyanocobalamin (Vitamin B-12) 2,000 mcg PO HS 09/07/23 12/10/23 [Vitamin B-12] Multivitamins, Thera [Multivitamin 1 tab PO HS 09/07/23 12/10/23 (formulary)] Zavegepant HCl [Zavzpret] 1 spray NASAL DAILY PRN 09/07/23 12/10/23 Potassium Chloride ER [K-Dur 10] 10 meq PO HS 12/10/23 12/10/23 QUEtiapine [SEROquel] 200 mg PO HS 12/10/23 12/10/23 Allergies Allergy/AdvReac Type Severity Reaction Status Date / Time dihydroergotamine Allergy Unknown Unknown Verified 12/10/23 20:22 [From Migranal] buprenorphine Allergy Rash/Hives Verified 12/10/23 20:22 gabapentin [From Neurontin] Allergy Itching/Swe Verified 12/10/23 20:22 lling latex Allergy Anaphylaxis Verified 12/10/23 20:22 naproxen [From Naprosyn] Allergy Anaphylaxis Verified 12/10/23 20:22 Penicillins Allergy Anaphylaxis Verified 12/10/23 20:22 prednisone Allergy Swelling Verified 12/10/23 20:22 quetiapine fumarate Allergy Itching, Verified 12/10/23 20:22 [From Seroquel] leg cramps rofecoxib [From Vioxx] Allergy Itching, Verified 12/10/23 20:22 leg cramps terfenadine [From Seldane] Allergy Rash/Hives Verified 12/10/23 20:22 vancomycin Allergy Rash/Hives/Swelling Verified 12/10/23 20:22 @IV site calcium carbonate [From DHEA] AdvReac Chest Pain Verified 12/10/23 20:22 calcium phosphate,dibasic AdvReac Chest Pain Verified 12/10/23 20:22 [From DHEA] clindamycin AdvReac muscle Verified 12/10/23 20:22 cramps clonidine AdvReac fast Verified 12/10/23 20:22 heartbeat, migraine dextromethorphan HBr AdvReac face/neck Verified 12/10/23 20:22 [From NyQuil] flushing diazepam [From Valium] AdvReac Nausea & Verified 12/10/23 20:22 Vomiting divalproex sodium AdvReac Nausea & Verified 12/10/23 20:22 [From Depakote] Vomiting doxylamine [From NyQuil] AdvReac face "beet Verified 12/10/23 20:22 red", elevated temp. ibuprofen [From Motrin] AdvReac abdominal Verified 12/10/23 20:22 & muscle cramps indomethacin [From Indocin] AdvReac Abdominal Verified 12/10/23 20:22 Pain,N/V ketorolac tromethamine AdvReac "built up Verified 12/10/23 20:22 [From Toradol] in system", had to be given something to reverse lorazepam [From Ativan] AdvReac Nausea & Verified 12/10/23 20:22 Vomiting memantine [From Namenda] AdvReac Itching Verified 12/10/23 20:22 metoclopramide HCl AdvReac muscle Verified 12/10/23 20:22 [From Reglan] cramps nortriptyline [From Pamelor] AdvReac Chest Pain Verified 12/10/23 20:22 prasterone (DHEA) [From DHEA] AdvReac Chest Pain Verified 12/10/23 20:22 prochlorperazine AdvReac leg Verified 12/10/23 20:22 [From Compazine] cramping propranolol AdvReac Chest Pain Verified 12/10/23 20:22 pseudoephedrine HCl AdvReac face "beet Verified 12/10/23 20:22 [From NyQuil] red", elevated temp. quetiapine [From Seroquel] AdvReac leg Verified 12/10/23 20:22 cramping sumatriptan [From Imitrex] AdvReac migrane Verified 12/10/23 20:22 sumatriptan succinate AdvReac migrane Verified 12/10/23 20:22 [From Imitrex] topiramate [From Topamax] AdvReac "built up Verified 12/10/23 20:22 in system", had to be given something to reverse tramadol AdvReac Nausea & Verified 12/10/23 20:22 Vomiting/LEG CRAMPS/HEART FLUTTERS trazodone AdvReac "built up Verified 12/10/23 20:22 in system", had to be given something to reverse zolpidem tartrate AdvReac "Became Verified 12/10/23 20:22 [From Ambien] violent with no memory" zonisamide [From Zonegran] AdvReac inability Verified 12/10/23 20:22 to eat artificial sweetener AdvReac SEVERE Uncoded 12/10/23 20:22 MIGRAINE HEADACHE prosyn AdvReac Itching Uncoded 12/10/23 20:22 Review of Systems ROS Statement: Those systems with pertinent positive or pertinent negative responses have been documented in the HPI. ROS Other: All systems not noted in ROS Statement are negative. Past Medical History Past Medical History: Hyperlipidemia, Hypertension, Seizure Disorder Additional Past Medical History / Comment(s): Migraines, viral meningitis x3 as a child, 1995, 2000, chronic back pain, nerve blocks 08/2016 and 12/2016. Last seizure 10/10/2020, "ABSENT SEIZURES. HX TACHYCARDIA, GBS/CIPD, PTSD. History of Any Multi-Drug Resistant Organisms: None Reported Past Surgical History: Appendectomy, Section, Cholecystectomy, Heart Catheterization, Heart Catheterization With Stent, Hernia Repair, Hysterectomy, Orthopedic Surgery, Tonsillectomy, Tubal Ligation Additional Past Surgical History / Comment(s): Hiatal Hernia, umbilical hernia repair, left rotator cuff repair, bilateral knee scopes, pain clinic procedures- occipital nerve block. abd exploratory sx(endometreosis), 3 abd scopes 1981, 1989, 1991), lumbar puncture. EGD. nerve biopsy, salvalry gland biospy Past Anesthesia/Blood Transfusion Reactions: No Reported Reaction Additional Past Anesthesia/Blood Transfusion Reaction / Comment(s): Claustrophobic Date of Last Stent Placement:: 06/03/2022 Past Psychological History: Anxiety, Bipolar, Panic Disorder, PTSD Smoking Status: Former smoker Past Alcohol Use History: None Reported Past Drug Use History: None Reported - Past Family History Mother Family Medical History: Cancer, Dementia, Diabetes Mellitus, GERD/Reflux, Hyperlipidemia, Hypertension, Thyroid Disorder Additional Family Medical History / Comment(s): CABG Father History Unknown: Yes Family Medical History: No Reported History General Exam Limitations: no limitations General appearance: alert, anxious Head exam: Present: atraumatic, normocephalic, normal inspection Eye exam: Present: normal appearance, PERRL, EOMI. Absent: scleral icterus, conjunctival injection, periorbital swelling ENT exam: Present: normal exam, mucous membranes moist Neck exam: Present: normal inspection. Absent: tenderness, meningismus, lymphadenopathy Cardiovascular Exam: Present: tachycardia Rectal exam: Present: normal rectal tone. Absent: mass Extremities exam: Present: other (Patient has poor effort with lower extremity s trength testing. Patient has no ability to raise her right leg off the bed. Patient does lift the left leg off the bed but has drift.) Back exam: Present: vertebral tenderness (l2-l5) Course Vital Signs 12/10/23 12/10/23 12/11/23 16:26 21:50 02:00 Temperature 97.9 F 98.3 F 97.3 F L Pulse Rate 102 H 80 87 Respiratory 18 16 18 Rate Blood Pressure 150/88 131/90 147/93 O2 Sat by Pulse 97 98 96 Oximetry 12/11/23 12/11/23 05:00 07:41 Temperature 98.3 F Pulse Rate 79 71 Respiratory 18 20 Rate Blood Pressure 153/97 133/92 O2 Sat by Pulse 99 99 Oximetry - Reevaluation(s) Reevaluation #1: Spoke with ramo BROWER - agreeable to consult on patient with MRI tomorrow 12/10/23 1841 Reevaluation #2: Spoke with Dr. Wilson for admission 12/10/23 1854 Medical Decision Making - Medical Decision Making Was pt. sent in by a medical professional or institution (, PA, UPHOLSTERY TECHNICIAN, urgent care, hospital, or alf...) When possible be specific @ -No Did you speak to anyone other than the patient for history (EMS, parent, family, police, friend...)? What history was obtained from this source @ -No Did you review nursing and triage notes (agree or disagree)? Why? @ -I reviewed and agree with nursing and triage notes Were old charts reviewed (outside hosp., previous admission, EMS record, old EKG, old radiological studies, urgent care reports/EKG's, alf records)? Report findings @ -I reviewed the hospital record from yesterday in the ED where patient had an x-ray performed Differential Diagnosis (chest pain, altered mental status, abdominal pain women, abdominal pain men, vaginal bleeding, weakness, fever, dyspnea, syncope, headache, dizziness, GI bleed, back pain, seizure, CVA, palpatations, mental health, musculoskeletal)? @ -Differential Back Pain: Strain, zoster, cauda equina syndrome, epidural abscess, vertebral osteomyelitis, discitis, fracture, subluxation, disc herniation, DJD, spinal stenosis, dissection, AAA, pancreatitis, peptic ulcer disease, pyelonephritis, kidney stone, this is not meant to be an all-inclusive list. EKG interpreted by me (3pts min.). @ -Not done X-rays interpreted by me (1pt min.). @ -None done CT interpreted by me (1pt min.). @ -Yes and demonstrates posterior lateral spurring at T9-10 with some cord contact. U/S interpreted by me (1pt. min.). @ -None done What testing was considered but not performed or refused? (CT, X-rays, U/S, labs)? Why? @ -None What meds were considered but not given or refused? Why? @ -None Did you discuss the management of the patient with other professionals (professionals i.e. , PA, UPHOLSTERY TECHNICIAN, lab, RT, psych nurse, social media editor, application support engineer, teacher, loan review officer, rn field case manager)? Give summary @ -Spoke with Dr. Wilson for admission as well as [facility]amo from [facility] Was smoking cessation discussed for >3mins.? @ -No Was critical care preformed (if so, how long)? @ -No Were there social determinants of health that impacted care today? How? (Homelessness, low income, unemployed, alcoholism, drug addiction, transportation, low edu. Level, literacy, decrease access to med. care, snf, rehab)? @ -Repetitive ER visits with drug-seeking behavior Was there de-escalation of care discussed even if they declined (Discuss DNR or withdrawal of care, Hospice)? DNR status @ -No What co-morbidities impacted this encounter? (DM, HTN, Smoking, COPD, CAD, Cancer, CVA, ARF, Chemo, Hep., AIDS, mental health diagnosis, sleep apnea, morbi d obesity)? @ -Chronic pain Was patient admitted / discharged? Hospital course, mention meds given and route, prescriptions, significant lab abnormalities, going to OR and other pertinent info. @ -Upon arrival patient was seen in the hallway. Thorough history and physical exam was performed. Patient states her because of return is due to incontinence and back pain. I did perform a rectal exam and it appears that the patient does have adequate rectal tone. She has very poor effort when doing strength testing. Because of her reported symptoms I did obtain a CT. I spoke with Ramo from [facility]. Informed him that there are no MRI slots available for today however the patient would be able to get an MRI tomorrow. He was agreeable to consulting on the patient. I spoke with Dr. Wilson who is agreeable to the patient's admission Undiagnosed new problem with uncertain prognosis? @ -Yes Drug Therapy requiring intensive monitoring for toxicity (Heparin, Nitro, Insulin, Cardizem)? @ -No Were any procedures done? @ -No Diagnosis/symptom? @ -Acute low back pain, acute bowel and bladder incontinence Acute, or Chronic, or Acute on Chronic? @ -Acute Uncomplicated (without systemic symptoms) or Complicated (systemic symptoms)? @ -Complicated Side effects of treatment? @ -No Exacerbation, Progression, or Severe Exacerbation? @ -No Poses a threat to life or bodily function? How? (Chest pain, USA, VT, pneumonia, PE, COPD, DKA, ARF, appy, cholecystitis, CVA, Diverticulitis, Homicidal, Suicidal, threat to staff... and all critical care pts) @ -Yes as patient is reporting signs of cauda equina - Lab Data Result diagrams: 12/11/23 06:02 12/11/23 06:02 Disposition Clinical Impression: Back pain, Bowel and bladder incontinence Disposition: ADMITTED IP TO THIS [facility] Condition: Stable Is patient prescribed a controlled substance at d/c from ED?: No Time of Disposition: 20:57 Decision to Admit Reason: Admit from EC Decision Date: 12/10/23 Decision Time: 20:57
[2023-12-10] MEDS: HYDROmorphone 1 MG/ML 1 ML SYRINGE IVP PRN (23:21)
[2023-12-11] MEDS: ONDANSETRON 4 MG/2 ML VIAL IVP SCH (01:59)
[2023-12-11 06:24] LABS: Basophils % (A) 1 %; Eosinophils # (A) 0.1 k/uL (0-0.7); Eosinophils % (A) 1 %; HCT 39.7 % (34.0-46.0); Lymphocytes # (A) 1.5 k/uL (1.0-4.8); Lymphocytes % (A) 24 %; MCHC 32.6 g/dL (31.0-37.0); MCV 97.9 fL (80.0-100.0); Mean Platelet Volume 8.2; Monocytes # (A) 0.4 k/uL (0-1.0); Monocytes % (A) 6 %; Neutrophils % (A) 67 %; Platelet Count 250 k/uL (150-450); RBC 4.06 m/uL (3.80-5.40); RDW 14.4 % (11.5-15.5)
[2023-12-11 07:13] LABS: African American GFR (CKD) >90 (>60 ml/min/1.73 sqM); Anion Gap 4 mmol/L; Blood Urea Nitrogen 5 mg/dL (7-17); Calcium 8.7 mg/dL (8.4-10.2); Carbon Dioxide 30 mmol/L (22-30); Chloride 104 mmol/L (98-107); Glucose 110 mg/dL (74-99); Non-African American GFR(CKD) 81 (>60 ml/min/1.73 sqM); Potassium 3.8 mmol/L (3.5-5.1); Sodium 138 mmol/L (137-145)
[2023-12-11] MEDS: CYCLOBENZAPRINE 10 MG TAB PO PRN (10:29)
[2023-12-11] MEDS: DEXAMETHASONE SOD PHOSPHATE 4 MG/ML 1 ML VIAL IVP SCH (11:18)
[2023-12-11] MEDS: LORazepam 2 MG/ML INJ IV PRN (13:03)
--- NOTE | 2023-12-11 13:49 | P.CNOR ---
History of Present Illness - [facility] Consult date: 12/11/23 Consult reason: low back pain History of present illness: Patient is a 53-year-old female who presented to [facility] on 12/10/2023 with regards to severe low back pain with episodes of bowel and bladder incontinence. Patient has a relatively complicated neurologic history, she admits to being diagnosed with a type of [place] Cárdenas back in 2018 which is affected her sensory exam to light touch and function of her lower extremities. Patient states from about mid torso down to her legs she has a vague feeling. Patient's upper extremities are not affected she states, she follows with both a pain management group and neurologist at the [facility]. Patient was in the hospital on 12/09/2023 with similar complaints, at that time she states she was bending over to picker feeder a toy when she felt a tearing/popping sensation in her back, shortly after that is when she had an episode of bowel/bladder incontinence. She was initially evaluated at [facility] ER, she was sent home, she then returned on 12/10/2023 with the same issue. I was contacted by the emergency room physician yesterday, a cervical/lumbar CT without contrast was ordered which demonstrated no sign ificant bony abnormalities, some mild degenerative changes in the lower lumbar spine and mid thoracic spine. With her concern for cauda equina, MRI of the lumbar spine without contrast was ordered. Patient was admitted under internal medicine to the observation status. In emergency room today, patient is resting comfortably, she has family at bedside. She notes pain no more in the low back centrally. Again her sensory exam to light touch is vague throughout the bilateral lower extremities. She admits to right lower extremity weakness worse than the left at this time. She denies any upper extremity symptoms at this time. Review of Systems Constitutional: Reports as per [facility] Past Medical History Past Medical History: Hyperlipidemia, Hypertension, Seizure Disorder Additional Past Medical History / Comment(s): Migraines, viral meningitis x3 as a child, 1995, 2000, chronic back pain, nerve blocks 08/2016 and 12/2016. Last seizure 10/10/2020, "ABSENT SEIZURES. HX TACHYCARDIA, GBS/CIPD, PTSD. History of Any Multi-Drug Resistant Organisms: None Reported Past Surgical History: Appendectomy, Section, Cholecystectomy, Heart C atheterization, Heart Catheterization With Stent, Hernia Repair, Hysterectomy, Orthopedic Surgery, Tonsillectomy, Tubal Ligation Additional Past Surgical History / Comment(s): Hiatal Hernia, umbilical hernia repair, left rotator cuff repair, bilateral knee scopes, pain clinic procedures- occipital nerve block. abd exploratory sx(endometreosis), 3 abd scopes 1981, 1989, 1991), lumbar puncture. EGD. nerve biopsy, salvalry gland biospy Past Anesthesia/Blood Transfusion Reactions: No Reported Reaction Additional Past Anesthesia/Blood Transfusion Reaction / Comm: Claustrophobic Date of Last Stent Placement:: 06/03/2022 Past Psychological History: Anxiety, Bipolar, Panic Disorder, PTSD Smoking Status: Former smoker Past Alcohol Use History: None Reported Past Drug Use History: None Reported - Past Family History Mother Family Medical History: Cancer, Dementia, Diabetes Mellitus, GERD/Reflux, Hyperlipidemia, Hypertension, Thyroid Disorder Additional Family Medical History / Comment(s): CABG Father History Unknown: Yes Family Medical History: No Reported History Medications and Allergies Home Medications Medication Instructions Recorded Confirmed Type Omeprazole [PriLOSEC] 20 mg PO HS 12/15/20 12/10/23 History Thiamine [Vitamin B-1] 100 mg PO HS 01/04/21 12/10/23 History Atorvastatin [Lipitor] 40 mg PO HS 07/20/21 12/10/23 History DULoxetine HCL [Cymbalta] 60 mg PO HS 07/20/21 12/10/23 History Atogepant [Qulipta] 60 mg PO HS 06/03/22 12/10/23 History Cyclobenzaprine [Flexeril] 10 mg PO TID PRN 06/03/22 12/10/23 History HYDROcodone/APAP 10-325MG [[place] 1 tab PO TID 06/03/22 12/10/23 History 10-325] Aspirin 81 mg PO HS 08/29/22 12/10/23 History Cyanocobalamin (Vitamin B-12) 2,000 mcg PO HS 09/07/23 12/10/23 History [Vitamin B-12] Multivitamins, Thera [Multivitamin 1 tab PO HS 09/07/23 12/10/23 History (formulary)] Zavegepant HCl [Zavzpret] 1 spray NASAL DAILY PRN 09/07/23 12/10/23 History Potassium Chloride ER [K-Dur 10] 10 meq PO HS 12/10/23 12/10/23 History QUEtiapine [SEROquel] 200 mg PO HS 12/10/23 12/10/23 History Allergies Allergy/AdvReac Type Severity Reaction Status Date / Time dihydroergotamine Allergy Unknown Unknown Verified 12/10/23 20:22 [From Migranal] buprenorphine Allergy Rash/Hives Verified 12/10/23 20:22 gabapentin [From Neurontin] Allergy Itching/Swe Verified 12/10/23 20:22 lling latex Allergy Anaphylaxis Verified 12/10/23 20:22 naproxen [From Naprosyn] Allergy Anaphylaxis Verified 12/10/23 20:22 Penicillins Allergy Anaphylaxis Verified 12/10/23 20:22 prednisone Allergy Swelling Verified 12/10/23 20:22 quetiapine fumarate Allergy Itching, Verified 12/10/23 20:22 [From Seroquel] leg cramps rofecoxib [From Vioxx] Allergy Itching, Verified 12/10/23 20:22 leg cramps terfenadine [From Seldane] Allergy Rash/Hives Verified 12/10/23 20:22 vancomycin Allergy Rash/Hives/Swelling Verified 12/10/23 20:22 @IV site calcium carbonate [From DHEA] AdvReac Chest Pain Verified 12/10/23 20:22 calcium phosphate,dibasic AdvReac Chest Pain Verified 12/10/23 20:22 [From DHEA] clindamycin AdvReac muscle Verified 12/10/23 20:22 cramps clonidine AdvReac fast Verified 12/10/23 20:22 heartbeat, migraine dextromethorphan HBr AdvReac face/neck Verified 12/10/23 20:22 [From NyQuil] flushing diazepam [From Valium] AdvReac Nausea & Verified 12/10/23 20:22 Vomiting divalproex sodium AdvReac Nausea & Verified 12/10/23 20:22 [From Depakote] Vomiting doxylamine [From NyQuil] AdvReac face "beet Verified 12/10/23 20:22 red", elevated temp. ibuprofen [From Motrin] AdvReac abdominal Verified 12/10/23 20:22 & muscle cramps indomethacin [From Indocin] AdvReac Abdominal Verified 12/10/23 20:22 Pain,N/V ketorolac tromethamine AdvReac "built up Verified 12/10/23 20:22 [From Toradol] in system", had to be given something to reverse lorazepam [From Ativan] AdvReac Nausea & Verified 12/10/23 20:22 Vomiting memantine [From Namenda] AdvReac Itching Verified 12/10/23 20:22 metoclopramide HCl AdvReac muscle Verified 12/10/23 20:22 [From Reglan] cramps nortriptyline [From Pamelor] AdvReac Chest Pain Verified 12/10/23 20:22 prasterone (DHEA) [From DHEA] AdvReac Chest Pain Verified 12/10/23 20:22 prochlorperazine AdvReac leg Verified 12/10/23 20:22 [From Compazine] cramping propranolol AdvReac Chest Pain Verified 12/10/23 20:22 pseudoephedrine HCl AdvReac face "beet Verified 12/10/23 20:22 [From NyQuil] red", elevated temp. quetiapine [From Seroquel] AdvReac leg Verified 12/10/23 20:22 cramping sumatriptan [From Imitrex] AdvReac migrane Verified 12/10/23 20:22 sumatriptan succinate AdvReac migrane Verified 12/10/23 20:22 [From Imitrex] topiramate [From Topamax] AdvReac "built up Verified 12/10/23 20:22 in system", had to be given something to reverse tramadol AdvReac Nausea & Verified 12/10/23 20:22 Vomiting/LEG CRAMPS/HEART FLUTTERS trazodone AdvReac "built up Verified 12/10/23 20:22 in system", had to be given something to reverse zolpidem tartrate AdvReac "Became Verified 12/10/23 20:22 [From Ambien] violent with no memory" zonisamide [From Zonegran] AdvReac inability Verified 12/10/23 20:22 to eat artificial sweetener AdvReac SEVERE Uncoded 12/10/23 20:22 MIGRAINE HEADACHE prosyn AdvReac Itching Uncoded 12/10/23 20:22 Physical Examination Gen: AOx3, NAD VSS stable at this time Integument: No open lesions or sores are visualized throughout the cervical, thoracic or lumbar spine. There are no areas of erythema noted Palpation: Patient demonstrates tenderness to palpation midline and paraspinal in the lower lumbar region ROM: Full range of motion in all major muscle groups of bilateral upper and lower extremities, no focal deficits Sensory Exam: Sen[place] exam to light touch is intact C5-T1 Sensory exam to light touch throughout the bilateral lower extremities is diminished Motor: 5/5 strength appreciated the bilateral upper extremities with shoulder elevation, shoulder abduction, elbow extension, elbow flexion, wrist extension, wrist flexion, grape cutter 4-/5 strength in the left lower extremity with hip flexion, knee extension, knee flexion, plantarflexion, dorsiflexion, EHL, FHL 3/5 strength appreciated in the right lower extremity with plantarflexion, dorsiflexion, EHL, FHL, 3-/5 strength appreciated in the right lower extremity with knee extension, knee flexion, hip flexion Reflexes: 2/4 in all UE and LE Negative Chapito's bilaterally Negative clonus bilaterally Special Test: Positive straight leg raise right lower extremity, negative straight leg raise left lower extremity Results - Labs Labs: Abnormal Lab Results - Last 24 Hours (Table) 12/11/23 Range/Units 06:02 BUN 5 L (7-17) mg/dL Glucose 110 H (74-99) mg/dL H & H 12/11/23 Range/Units 06:02 Hgb 13.0 (11.4-16.0) gm/dL Hct 39.7 (34.0-46.0) % Result Diagrams: 12/11/23 06:02 12/11/23 06:02 Assessment and Plan Assessment: Low back pain Bilateral lower extremity weakness, right worse than left Right lower extremity radiculopathy History of [place] Cárdenas type syndrome Bowel or bladder incontinence Other medical comorbidities Plan: Imaging: Thoracic or lumbar CT without contrast both report and images were reviewed. No acute fractures or dislocations noted. Spondylosis noted at L2-L3, no acute fractures or dislocations appreciated Plan: I was able to discuss the case, this to include both physical exam findings and imaging studies and my attending Dr. Velasco. MRI of the lumbar spine without contrast has been ordered, await those results. Pain control, continue with her normally prescribed medications DVT prophylaxis per primary medical service Weight-bear as tolerated with walker Other medical specialty recommendations appreciated Further recommendations to follow Time with Patient: Less than 30
--- NOTE | 2023-12-11 15:05 | P.HPIM ---
History of Present Illness H&P Date: 12/11/23 Patient is a 53-year-old female with a history of chronic back pain since presented to the ED initially on 12/09/2023 for back pain, was sent home, and returned 12/10/2023 stating worsening back pain and bowel and bladder incontinence for 2 days. 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 Endorses numbness/tingling - normally chest down but seems to have worsened in the last two days, describes legs as being heavy as if they're asleep. Endorses nausea due to pain. Denies dysuria, hematochezia, melena, hematuria, chest pain, shortness of breath, or abdominal pain. CT thoracic and lumbar spine shows left posterior lateral spurring at T9-T10, some cord contact without deformity or stenosis, degenerative disc change L2-L3 stable from comparison. MRI lumbar spine pending. Labs are unremarkable. Mildly hypertensive 130s-150s/90s. ED documentation reviewed. Review of systems: Pertinent positives and negatives as discussed in HPI, a complete review of systems was performed and all other systems are negative. Social history: Tobacco: Former smoker, quit 2 years ago Alcohol: Denies Recreational drugs: Denies Travel: Denies recent travel Occupation: Doesn't work Physical examination: Vital signs reviewed General: non toxic, no distress, appears at stated age Derm: no unusual rashes/lesions, warm Head: atraumatic, normocephalic, symmetric Eyes: EOMI, no lid lag, anicteric sclera, pupils equal round reactive to light ENT: Nose and ears atraumatic Neck: No cervical lymphadenopathy, trachea midline, supple Mouth: no lip lesion, mucus membranes moist Cardiovascular: S1S2, regular rate and rhythm, no murmurs, rubs, gallops Lungs: CTA bilateral, no rhonchi, no rales, no accessory muscle use Abdominal: soft, nontender to palpation, no guarding Ext: muscle strength 3/5 R lower extremity, 4/5 L lower extremity, 5/5 in upper extremities, no gross muscle atrophy, no contractures, dorsalis pedis pulse bilateral, no edema Neuro: CN II-XI grossly intact, no gross focal neuro deficits Psych: Alert, oriented, appropriate affect and mood Assessment/Plan: #. Lower back pain #. Bilateral lower extremity weakness, right worse than left #. Lower extremity radiculopathy Orthopedics has been consulted [place] 10 for pain Flexeril as needed #. Bladder and bowel incontinence MRI pending to rule out cauda equina syndrome DVT prophylaxis: SCD Chronic conditions: Back pain, Guillain-Cárdenas syndrome, hyperlipidemia, seizure disorder, bipolar, panic disorder, PTSD, anxiety, cardiac stent 06/04/2022 The patient is admitted with an anticipated less than 2 midnight stay for evaluation of back pain. CODE STATUS: Full code Discussed with: Patient Anticipated discharge place: Home Past Medical History Past Medical History: Hyperlipidemia, Hypertension, Seizure Disorder Additional Past Medical History / Comment(s): Migraines, viral meningitis x3 as a child, 1995, 2000, chronic back pain, nerve blocks 08/2016 and 12/2016. Last seizure 10/10/2020, "ABSENT SEIZURES. HX TACHYCARDIA, GBS/CIPD, PTSD. History of Any Multi-Drug Resistant Organisms: None Reported Past Surgical History: Appendectomy, Section, Cholecystectomy, Heart Catheterization, Heart Catheterization With Stent, Hernia Repair, Hysterectomy, Orthopedic Surgery, Tonsillectomy, Tubal Ligation Additional Past Surgical History / Comment(s): Hiatal Hernia, umbilical hernia repair, left rotator cuff repair, bilateral knee scopes, pain clinic procedures- occipital nerve block. abd exploratory sx(endometreosis), 3 abd scopes 1981, 1989, 1991), lumbar puncture. EGD. nerve biopsy, salvalry gland biospy Past Anesthesia/Blood Transfusion Reactions: No Reported Reaction Additional Past Anesthesia/Blood Transfusion Reaction / Comment(s): Claustrophobic Date of Last Stent Placement:: 06/03/2022 Past Psychological History: Anxiety, Bipolar, Panic Disorder, PTSD Smoking Status: Former smoker Past Alcohol Use History: None Reported Past Drug Use History: None Reported - Past Family History Mother Family Medical History: Cancer, Dementia, Diabetes Mellitus, GERD/Reflux, Hyperlipidemia, Hypertension, Thyroid Disorder Additional Family Medical History / Comment(s): CABG Father History Unknown: Yes Family Medical History: No Reported History Medications and Allergies Home Medications Medication Instructions Recorded Confirmed Type Omeprazole [PriLOSEC] 20 mg PO HS 12/15/20 12/10/23 History Thiamine [Vitamin B-1] 100 mg PO HS 01/04/21 12/10/23 History Atorvastatin [Lipitor] 40 mg PO HS 07/20/21 12/10/23 History DULoxetine HCL [Cymbalta] 60 mg PO HS 07/20/21 12/10/23 History Atogepant [Qulipta] 60 mg PO HS 06/03/22 12/10/23 History Cyclobenzaprine [Flexeril] 10 mg PO TID PRN 06/03/22 12/10/23 History HYDROcodone/APAP 10-325MG [[place] 1 tab PO TID 06/03/22 12/10/23 History 10-325] Aspirin 81 mg PO HS 08/29/22 12/10/23 History Cyanocobalamin (Vitamin B-12) 2,000 mcg PO HS 09/07/23 12/10/23 History [Vitamin B-12] Multivitamins, Thera [Multivitamin 1 tab PO HS 09/07/23 12/10/23 History (formulary)] Zavegepant HCl [Zavzpret] 1 spray NASAL DAILY PRN 09/07/23 12/10/23 History Potassium Chloride ER [[place] 10] 10 meq PO HS 12/10/23 12/10/23 History QUEtiapine [SEROquel] 200 mg PO HS 12/10/23 12/10/23 History Allergies Allergy/AdvReac Type Severity Reaction Status Date / Time dihydroergotamine Allergy Unknown Unknown Verified 12/10/23 20:22 [From Migranal] buprenorphine Allergy Rash/Hives Verified 12/10/23 20:22 gabapentin [From Neurontin] Allergy Itching/Swe Verified 12/10/23 20:22 lling latex Allergy Anaphylaxis Verified 12/10/23 20:22 naproxen [From Naprosyn] Allergy Anaphylaxis Verified 12/10/23 20:22 Penicillins Allergy Anaphylaxis Verified 12/10/23 20:22 prednisone Allergy Swelling Verified 12/10/23 20:22 quetiapine fumarate Allergy Itching, Verified 12/10/23 20:22 [From Seroquel] leg cramps rofecoxib [From Vioxx] Allergy Itching, Verified 12/10/23 20:22 leg cramps terfenadine [From Seldane] Allergy Rash/Hives Verified 12/10/23 20:22 vancomycin Allergy Rash/Hives/Swelling Verified 12/10/23 20:22 @IV site calcium carbonate [From DHEA] AdvReac Chest Pain Verified 12/10/23 20:22 calcium phosphate,dibasic AdvReac Chest Pain Verified 12/10/23 20:22 [From DHEA] clindamycin AdvReac muscle Verified 12/10/23 20:22 cramps clonidine AdvReac fast Verified 12/10/23 20:22 heartbeat, migraine dextromethorphan HBr AdvReac face/neck Verified 12/10/23 20:22 [From NyQuil] flushing diazepam [From Valium] AdvReac Nausea & Verified 12/10/23 20:22 Vomiting divalproex sodium AdvReac Nausea & Verified 12/10/23 20:22 [From Depakote] Vomiting doxylamine [From NyQuil] AdvReac face "beet Verified 12/10/23 20:22 red", elevated temp. ibuprofen [From Motrin] AdvReac abdominal Verified 12/10/23 20:22 & muscle cramps indomethacin [From Indocin] AdvReac Abdominal Verified 12/10/23 20:22 Pain,N/V ketorolac tromethamine AdvReac "built up Verified 12/10/23 20:22 [From Toradol] in system", had to be given something to reverse lorazepam [From Ativan] AdvReac Nausea & Verified 12/10/23 20:22 Vomiting memantine [From Namenda] AdvReac Itching Verified 12/10/23 20:22 metoclopramide HCl AdvReac muscle Verified 12/10/23 20:22 [From Reglan] cramps nortriptyline [From Pamelor] AdvReac Chest Pain Verified 12/10/23 20:22 prasterone (DHEA) [From DHEA] AdvReac Chest Pain Verified 12/10/23 20:22 prochlorperazine AdvReac leg Verified 12/10/23 20:22 [From Compazine] cramping propranolol AdvReac Chest Pain Verified 12/10/23 20:22 pseudoephedrine HCl AdvReac face "beet Verified 12/10/23 20:22 [From NyQuil] red", elevated temp. quetiapine [From Seroquel] AdvReac leg Verified 12/10/23 20:22 cramping sumatriptan [From Imitrex] AdvReac migrane Verified 12/10/23 20:22 sumatriptan succinate AdvReac migrane Verified 12/10/23 20:22 [From Imitrex] topiramate [From Topamax] AdvReac "built up Verified 12/10/23 20:22 in system", had to be given something to reverse tramadol AdvReac Nausea & Verified 12/10/23 20:22 Vomiting/LEG CRAMPS/HEART FLUTTERS trazodone AdvReac "built up Verified 12/10/23 20:22 in system", had to be given something to reverse zolpidem tartrate AdvReac "Became Verified 12/10/23 20:22 [From Ambien] violent with no memory" zonisamide [From Zonegran] AdvReac inability Verified 12/10/23 20:22 to eat artificial sweetener AdvReac SEVERE Uncoded 12/10/23 20:22 MIGRAINE HEADACHE prosyn AdvReac Itching Uncoded 12/10/23 20:22 Physical Exam Vitals: Vital Signs Temp Pulse Resp BP Pulse Ox 12/11/23 07:41 98.3 F 71 20 133/92 99 12/11/23 05:00 79 18 153/97 99 12/11/23 02:00 97.3 F L 87 18 147/93 96 12/10/23 21:50 98.3 F 80 16 131/90 98 12/10/23 16:26 97.9 F 102 H 18 150/88 97 Intake and Output 12/10/23 12/11/23 12/11/23 22:59 06:59 14:59 Other: Weight 77.111 kg Results CBC & Chem 7: 12/11/23 06:02 12/11/23 06:02 Labs: Abnormal Lab Results - Last 24 Hours (Table) 12/11/23 Range/Units 06:02 BUN 5 L (7-17) mg/dL Glucose 110 H (74-99) mg/dL
--- NOTE | 2023-12-11 15:11 | MR ---
EXAMINATION TYPE: MR tspine/lspine wo con DATE OF EXAM: 12/11/2023 2:29 PM CLINICAL INDICATION: Female, 53 years old with history of bowel and bladder incontinence, back pain; PHH, Bowel/bladder incontinence, pain COMPARISON: 06/05/2018 9324, and 424 TECHNIQUE: Multi planar, multi sequence imaging was performed utilizing: T1-weighted, T2-weighted, a nd turbo inversion recovery imaging of the thoracic and lumbar spine. IV Contrast: cc . None. FINDINGS: Alignment: The thoracic and lumbar vertebral bodies have preserved heights and alignment. Cord: The conus medullaris and the distal spinal cord appear unremarkable with regards to their signa l intensity and morphology. Bones/Discs: Bone signal is within normal limits. Multilevel degenerative disc disease is noted and most pronounced at the mild multilevel degeneration with disc space narrowing osteophyte formation.. THORACIC: Motion limited exam. No evidence significant spinal canal or neural foraminal stenosis. Spi nal cord is within normal limits. Similar spurring at the T9-T10 vertebral body level with some displ acement of the cord. LUMBAR: Motion limited exam. T12-L1: No evidence of significant spinal canal stenosis or neural foraminal stenosis. L1-L2: No evidence of significant spinal canal stenosis or neural foraminal stenosis. L2-L3: No evidence of significant spinal canal stenosis or neural foraminal stenosis. L3-L4: L3-L4 left foraminal disc protrusion/eccentric disc bulge which displaces the left exiting ner ve.No right neural foraminal stenosis. The spinal canal is patent. L4-L5: No evidence of significant spinal canal stenosis or neural foraminal stenosis. L5-S1: The disc is rounded posterior morphology without significant spinal canal stenosis. Facet join t arthropathy with mild neural foraminal stenosis. Other findings: None. IMPRESSION: 1. Limited evaluation due to motion. 2. L3-L4 left foraminal disc protrusion/eccentric disc bulge which displaces the left exiting nerve. 3. Similar spurring at the T9-T10 vertebral body level with some displacement of the cord. 4. No evidence for significant spinal canal stenosis. No evidence for significant neural foraminal s tenosis within the limitations of exam. 5. Spinal cord is poorly evaluated due to motion.
[2023-12-11] MEDS: PANTOPRAZOLE 40 MG TABLET PO SCH (20:48)
[2023-12-11] MEDS: POTASSIUM CHLORIDE ER 10 MEQ TAB.ER.PRT PO SCH (20:48)
[2023-12-11] MEDS: DULoxetine HCL 60 MG CAPSULE.DR PO SCH (20:48)
[2023-12-11] MEDS: THIAMINE 100 MG TAB PO SCH (20:48)
[2023-12-11] MEDS: CYANOCOBALAMIN 500 MCG TAB PO SCH (20:48)
[2023-12-11] MEDS: MULTIVITAMINS, THERA 1 EACH TAB PO SCH (20:48)
[2023-12-11] MEDS: ATORVASTATIN 40 MG TAB PO SCH (20:48)
[2023-12-11] MEDS: HYDROcodone/APAP 10-325MG 1 EACH TAB PO PRN (20:50)
[2023-12-11] MEDS: QUEtiapine 100 MG TAB PO SCH (23:01)
[2023-12-11] MEDS: NON FORMULARY DRUG (Atogepant [Qulipta] 60 MG Tablet) PO SCH (23:07)
--- NOTE | 2023-12-12 12:07 | P.PN ---
Subjective Progress Note Date: 12/12/23 Patient is a 53-year-old female with a history of chronic back pain since presented to the ED initially on 12/09/2023 for back pain, was sent home, and returned 12/10/2023 stating worsening back pain and bowel and bladder incontinence for 2 days. 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 Endorses numbness/tingling - normally chest down but seems to have worsened in the last two days, describes legs as being heavy as if they're asleep. Endorses nausea due to pain. Denies dysuria, hematochezia, melena, hematuria, chest pain, shortness of breath, or abdominal pain. CT thoracic and lumbar spine shows left posterior lateral spurring at T9-T10, some cord contact without deformity or stenosis, degenerative disc change L2-L3 stable from comparison. MRI lumbar spine pending. Labs are unremarkable. Mildly hypertensive 130s-150s/90s. 12/11. Patient seen lying in bed. Normotensive, tachycardic, afebrile. She continues to endorse bladder incontinence but states bowel incontinence is improved. MRI 12/11/2023: L3-L4 left foraminal disc protrusion/eccentric disc bulge which displaces left exiting nerve, spurring at T9-T10 vertebral body with some displacement of the cord, no evidence of significant spinal canal stenosis, no evidence of significant neural foraminal stenosis. Denies chest pain, shortness of breath, abdominal pain, fever, or chills. ROS reviewed. Pertinent positives and negatives discussed above, a complete review of systems was performed and all the other systems were negative. Physical examination: Vital signs reviewed General: non toxic, no distress, appears at stated age Derm: no unusual rashes/lesions, warm Head: atraumatic, normocephalic, symmetric Eyes: EOMI, no lid lag, anicteric sclera, pupils equal round reactive to light ENT: Nose and ears atraumatic Neck: No cervical lymphadenopathy, trachea midline, supple Mouth: no lip lesion, mucus membranes moist Cardiovascular: S1S2, regular rate and rhythm, no murmurs, rubs, gallops Lungs: CTA bilateral, no rhonchi, no rales, no accessory muscle use Abdominal: soft, nontender to palpation, no guarding Ext: muscle strength 3/5 R lower extremity, 4/5 L lower extremity, 5/5 in upper extremities, no gross muscle atrophy, no contractures, dorsalis pedis pulse bilateral, no edema Neuro: CN II-XI grossly intact, no gross focal neuro deficits Psych: Alert, oriented, appropriate affect and mood Assessment/Plan: #. Lower back pain #. Bilateral lower extremity weakness, right worse than left #. Lower extremity radiculopathy #. Bladder incontinence Flexeril as needed [place] 10 for pain Orthopedics consulted Pending ortho recommendations at this time Labs and medication were reviewed. Continue same treatment. Continue with symptomatic treatment. Resume home medication. Monitor labs and vitals. DVT and GI prophylaxis. Further recommendations as per clinical course of the patient. Objective - Vital Signs Vital signs: Vital Signs Temp 98.4 F 12/12/23 06:57 Pulse 116 H 12/12/23 06:57 Resp 19 12/12/23 06:57 BP 120/74 12/12/23 06:57 Pulse Ox 96 12/12/23 06:57 FiO2 Intake & Output 12/11/23 12/12/23 12/12/23 18:59 06:59 18:59 Output Total 300 Balance -300 Weight 77.111 kg Output: Urine 300 Other: # Voids 1 - Labs CBC & Chem 7: 12/11/23 06:02 12/11/23 06:02
--- NOTE | 2023-12-12 13:49 | P.DS ---
Providers Date of admission: 12/10/23 21:08 Attending physician: All Wilson Consults: 12/10/23 20:58 Consult Physician Urgent Consulting Provider: Mihai Velasco Consult Reason/Comments: low back pain, bowel and bladder incontinence Do you want consulting provider notified?: Already Contacted Primary care physician: José Reece Hospital Course: Hospital Course: Patient is a 53-year-old female with a history of chronic back pain and Guillain-Cárdenas syndrome presented to the ED for worsening back pain and concerns of new onset bowel and bladder incontinence. 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 Orthopedics consulted - her thoracic/lumbar spine MRI and CT showed no signs of spinal cord compression. She notes that the bowel incontinence has improved. Patient pain has improved with medication. She has been hemodynamically stable. She is stable for discharge. Final Diagnosis: #. Bilateral lower extremity weakness Physical examination: Vital signs reviewed General: non toxic, no distress, appears at stated age Derm: no unusual rashes/lesions, warm Head: atraumatic, normocephalic, symmetric Eyes: EOMI, no lid lag, anicteric sclera, pupils equal round reactive to light ENT: Nose and ears atraumatic Neck: No cervical lymphadenopathy, trachea midline, supple Mouth: no lip lesion, mucus membranes moist Cardiovascular: S1S2, regular rate and rhythm, no murmurs, rubs, gallops Lungs: CTA bilateral, no rhonchi, no rales, no accessory muscle use Abdominal: soft, nontender to palpation, no guarding Ext: muscle strength 3/5 R lower extremity, 4/5 L lower extremity, 5/5 in upper extremities, no gross muscle atrophy, no contractures, dorsalis pedis pulse bilateral, no edema Neuro: CN II-XI grossly intact, no gross focal neuro deficits Psych: Alert, oriented, appropriate affect and mood Patient Condition at Discharge: Stable Plan - Discharge Summary New Discharge Prescriptions: Continue Thiamine [Vitamin B-1] 100 mg PO HS Atorvastatin [Lipitor] 40 mg PO HS HYDROcodone/APAP 10-325MG [[place] 10-325] 1 tab PO TID Cyclobenzaprine [Flexeril] 10 mg PO TID PRN PRN Reason: Pain Atogepant [Qulipta] 60 mg PO HS Aspirin 81 mg PO HS Zavegepant HCl [Zavzpret] 1 spray NASAL DAILY PRN PRN Reason: Migraine Headache Potassium Chloride ER [K-Dur 10] 10 meq PO HS Omeprazole [PriLOSEC] 20 mg PO HS DULoxetine HCL [Cymbalta] 60 mg PO HS Cyanocobalamin (Vitamin B-12) [Vitamin B-12] 2,000 mcg PO HS Multivitamins, Thera [Multivitamin (formulary)] 1 tab PO HS QUEtiapine [SEROquel] 200 mg PO HS Discharge Medication List Omeprazole [PriLOSEC] 20 mg PO HS 12/15/20 [History] Thiamine [Vitamin B-1] 100 mg PO HS 01/04/21 [History] Atorvastatin [Lipitor] 40 mg PO HS 07/20/21 [History] DULoxetine HCL [Cymbalta] 60 mg PO HS 07/20/21 [History] Atogepant [Qulipta] 60 mg PO HS 06/03/22 [History] Cyclobenzaprine [Flexeril] 10 mg PO TID PRN 06/03/22 [History] HYDROcodone/APAP 10-325MG [[place] 10-325] 1 tab PO TID 06/03/22 [History] Aspirin 81 mg PO HS 08/29/22 [History] Cyanocobalamin (Vitamin B-12) [Vitamin B-12] 2,000 mcg PO HS 09/07/23 [History] Multivitamins, Thera [Multivitamin (formulary)] 1 tab PO HS 09/07/23 [History] Zavegepant HCl [Zavzpret] 1 spray NASAL DAILY PRN 09/07/23 [History] Potassium Chloride ER [K-Dur 10] 10 meq PO HS 12/10/23 [History] QUEtiapine [SEROquel] 200 mg PO HS 12/10/23 [History] Follow up Appointment(s)/Referral(s): José Reece MD [Primary Care Provider] - 1-2 days Mihai Velasco DO [Doctor of Osteopathic Medicine] - 1 Week Activity/Diet/Wound Care/Special Instructions: Patient requires a shower chair because she would be unable to shower otherwise due to neuropathy, history of Guillian [place], bilateral lower extremity weakness, and seizures. Discharge Disposition: HOME SELF-CARE
[2023-12-12 14:38] VITALS: BP 110/76; PULSE 89; RESP 20; TEMP 98.5
--- NOTE | 2023-12-12 16:25 | P.PN ---
Subjective Progress Note Date: 12/12/23 Principal diagnosis: Low back pain, bowel/bladder incontinence Patient was examined today at bedside, she had family present. Patient continues to have low back pain she states. She states that the incontinence has improved. She did have the MRI of the lumbar spine, this does demonstrate no acute areas of compression/signal changes to the spinal cord itself, space-occupying lesions. Objective - Vital Signs Vital signs: Vital Signs Temp 98.5 F 12/12/23 13:28 Pulse 89 12/12/23 13:28 Resp 20 12/12/23 13:28 BP 110/76 12/12/23 13:28 Pulse Ox 94 L 12/12/23 13:28 FiO2 Intake & Output 12/11/23 12/12/23 12/12/23 18:59 06:59 18:59 Output Total 300 Balance -300 Weight 77.111 kg Output: Urine 300 Other: # Voids 1 - Exam Gen: AOx3, NAD VSS stable at this time Integument: No open lesions or sores are visualized throughout the cervical, thoracic or lumbar spine. There are no areas of erythema noted Palpation: Patient demonstrates tenderness to palpation midline and paraspinal in the lower lumbar region ROM: Full range of motion in all major muscle groups of bilateral upper and lower extremities, no focal deficits Sensory Exam: [place] exam to light touch is intact C5-T1 Sensory exam to light touch throughout the bilateral lower extremities is diminished Motor: 5/5 strength appreciated the bilateral upper extremities with shoulder elevation, shoulder abduction, elbow extension, elbow flexion, wrist extension, wrist flexion, guest specialist 4-/5 strength in the left lower extremity with hip flexion, knee extension, knee flexion, plantarflexion, dorsiflexion, EHL, FHL 3/5 strength appreciated in the right lower extremity with plantarflexion, dorsiflexion, EHL, FHL, 3-/5 strength appreciated in the right lower extremity with knee extension, knee flexion, hip flexion Reflexes: 2/4 in all UE and LE Negative Chapito's bilaterally Negative clonus bilaterally Special Test: Positive straight leg raise right lower extremity, negative straight leg raise left lower extremity - Labs CBC & Chem 7: 12/11/23 06:02 12/11/23 06:02 Assessment and Plan Assessment: Low back pain Bilateral lower extremity weakness, right worse than left Right lower extremity radiculopathy History of [place] Cárdenas type syndrome Bowel or bladder incontinence Other medical comorbidities Plan: Imaging: Report and images reviewed of the thoracolumbar MRI. No significant stenosis noted centrally or neuroforaminal, no space-occupying lesions. Similar findings to the lumbar CT Plan: No orthopedic spine surgical invention is recommended at this time Pain control, continue with her normally prescribed medications DVT prophylaxis per primary medical service Weight-bear as tolerated with walker Other medical specialty recommendations appreciated Recommend patient follow-up with her neurologist/pain management doctor at [facility] Time with Patient: Less than 30
== END 2023-12-12 17:23 | disposition home or self-care (01) ==
LOC: EC 16:21 → 6NMEDSUR 21:08 → 4SSUR 12-11 18:06
PROVIDERS: ADMIT Hospitalist; ATTEND Hospitalist
DX: M54.50 Low back pain, unspecified (principal); G89.29 Other chronic pain; R32 Unspecified urinary incontinence; R15.9 Full incontinence of feces; R53.1 Weakness; M54.10 Radiculopathy, site unspecified; I10 Essential (primary) hypertension; E78.5 Hyperlipidemia, unspecified; F43.10 Post-traumatic stress disorder, unspecified; F41.0 Panic disorder [episodic paroxysmal anxiety]; F31.9 Bipolar disorder, unspecified; Z87.891 Personal history of nicotine dependence; Z95.5 Presence of coronary angioplasty implant and graft; Z79.899 Other long term (current) drug therapy; Z79.82 Long term (current) use of aspirin; Z88.0 Allergy status to penicillin; Z88.1 Allergy status to other antibiotic agents; Z88.5 Allergy status to narcotic agent; Z88.6 Allergy status to analgesic agent; Z91.040 Latex allergy status
CPT/HCPCS: 72128; 72131; 72146; 72148; 80048; 85025; 96374; 96375; 96376; 99285

== ENCOUNTER 2023-12-21 17:00 | Emergency (ER) | payer OTHER ==
[2023-12-21 17:10] VITALS: TEMP 98.3
--- NOTE | 2023-12-21 17:26 | ED ---
Chest Pain HPI - General Source: patient, RN notes reviewed Mode of arrival: wheelchair Limitations: no limitations <Andreia Simon - Last Filed: 12/21/23 17:24> <Zee Bonner - Last Filed: 12/22/23 11:37> - General Chief Complaint: Chest Pain Stated Complaint: Migraine, chest pain Time Seen by Provider: 12/21/23 17:24 - History of Present Illness Initial Comments: Quick note: 53-year-old male presented to ER with a chief complaint of migraine. Patient also is complaining of chest discomfort. Patient is a history of migraines. Been ongoing for the past 3 days. No abortive medications have helped including [place] and Flexeril. No shortness of breath. Patient does have a port placed in left chest. (Andreia Simon) Female with history of migraine headaches presents for migraine headache that is now alleviated with at home medications. Patient states that symptoms been present over the past 3 days and are seen as if she has had migraines in the past. Patient states that she had a episode of left-sided chest discomfort that lasted for a few minutes however states that this pain is subsided and believes that this pain was due to her report. Denies shortness of breath, difficulty breathing, blurry or double vision. (Zee Bonner) - Related Data Home Medications Medication Instructions Recorded Confirmed Omeprazole [PriLOSEC] 20 mg PO HS 12/15/20 12/10/23 Thiamine [Vitamin B-1] 100 mg PO HS 01/04/21 12/10/23 Atorvastatin [Lipitor] 40 mg PO HS 07/20/21 12/10/23 DULoxetine HCL [Cymbalta] 60 mg PO HS 07/20/21 12/10/23 Atogepant [Qulipta] 60 mg PO HS 06/03/22 12/10/23 Cyclobenzaprine [Flexeril] 10 mg PO TID PRN 06/03/22 12/10/23 HYDROcodone/APAP 10-325MG [[place] 1 tab PO TID 06/03/22 12/10/23 10-325] Aspirin 81 mg PO HS 08/29/22 12/10/23 Cyanocobalamin (Vitamin B-12) 2,000 mcg PO HS 09/07/23 12/10/23 [Vitamin B-12] Multivitamins, Thera [Multivitamin 1 tab PO HS 09/07/23 12/10/23 (formulary)] Zavegepant HCl [Zavzpret] 1 spray NASAL DAILY PRN 09/07/23 12/10/23 Potassium Chloride ER [K-Dur 10] 10 meq PO HS 12/10/23 12/10/23 QUEtiapine [SEROquel] 200 mg PO HS 12/10/23 12/10/23 Allergies Allergy/AdvReac Type Severity Reaction Status Date / Time dihydroergotamine Allergy Unknown Unknown Verified 12/21/23 17:10 [From Migranal] buprenorphine Allergy Rash/Hives Verified 12/21/23 17:10 gabapentin [From Neurontin] Allergy Itching/Swe Verified 12/21/23 17:10 lling latex Allergy Anaphylaxis Verified 12/21/23 17:10 naproxen [From Naprosyn] Allergy Anaphylaxis Verified 12/21/23 17:10 Penicillins Allergy Anaphylaxis Verified 12/21/23 17:10 prednisone Allergy Swelling Verified 12/21/23 17:10 quetiapine fumarate Allergy Itching, Verified 12/21/23 17:10 [From Seroquel] leg cramps rofecoxib [From Vioxx] Allergy Itching, Verified 12/21/23 17:10 leg cramps terfenadine [From Seldane] Allergy Rash/Hives Verified 12/21/23 17:10 vancomycin Allergy Rash/Hives/Swelling Verified 12/21/23 17:10 @IV site calcium carbonate [From DHEA] AdvReac Chest Pain Verified 12/21/23 17:10 calcium phosphate,dibasic AdvReac Chest Pain Verified 12/21/23 17:10 [From DHEA] clindamycin AdvReac muscle Verified 12/21/23 17:10 cramps clonidine AdvReac fast Verified 12/21/23 17:10 heartbeat, migraine dextromethorphan HBr AdvReac face/neck Verified 12/21/23 17:10 [From NyQuil] flushing diazepam [From Valium] AdvReac Nausea & Verified 12/21/23 17:10 Vomiting divalproex sodium AdvReac Nausea & Verified 12/21/23 17:10 [From Depakote] Vomiting doxylamine [From NyQuil] AdvReac face "beet Verified 12/21/23 17:10 red", elevated temp. ibuprofen [From Motrin] AdvReac abdominal Verified 12/21/23 17:10 & muscle cramps indomethacin [From Indocin] AdvReac Abdominal Verified 12/21/23 17:10 Pain,N/V ketorolac tromethamine AdvReac "built up Verified 12/21/23 17:10 [From Toradol] in system", had to be given something to reverse lorazepam [From Ativan] AdvReac Nausea & Verified 12/21/23 17:10 Vomiting memantine [From Namenda] AdvReac Itching Verified 12/21/23 17:10 metoclopramide HCl AdvReac muscle Verified 12/21/23 17:10 [From Reglan] cramps nortriptyline [From Pamelor] AdvReac Chest Pain Verified 12/21/23 17:10 prasterone (DHEA) [From DHEA] AdvReac Chest Pain Verified 12/21/23 17:10 prochlorperazine AdvReac leg Verified 12/21/23 17:10 [From Compazine] cramping propranolol AdvReac Chest Pain Verified 12/21/23 17:10 pseudoephedrine HCl AdvReac face "beet Verified 12/21/23 17:10 [From NyQuil] red", elevated temp. quetiapine [From Seroquel] AdvReac leg Verified 12/21/23 17:10 cramping sumatriptan [From Imitrex] AdvReac migrane Verified 12/21/23 17:10 sumatriptan succinate AdvReac migrane Verified 12/21/23 17:10 [From Imitrex] topiramate [From Topamax] AdvReac "built up Verified 12/21/23 17:10 in system", had to be given something to reverse tramadol AdvReac Nausea & Verified 12/21/23 17:10 Vomiting/LEG CRAMPS/HEART FLUTTERS trazodone AdvReac "built up Verified 12/21/23 17:10 in system", had to be given something to reverse zolpidem tartrate AdvReac "Became Verified 12/21/23 17:10 [From Ambien] violent with no memory" zonisamide [From Zonegran] AdvReac inability Verified 12/21/23 17:10 to eat artificial sweetener AdvReac SEVERE Uncoded 12/21/23 17:10 MIGRAINE HEADACHE prosyn AdvReac Itching Uncoded 12/21/23 17:10 Review of Systems ROS Other: All systems not noted in ROS Statement are negative. <Andreia Simon - Last Filed: 12/21/23 17:24> ROS Other: All systems not noted in ROS Statement are negative. <Zee Bonner - Last Filed: 12/22/23 11:37> ROS Statement: Those systems with pertinent positive or pertinent negative responses have been documented in the HPI. Past Medical History Past Medical History: Hyperlipidemia, Hypertension, Seizure Disorder Additional Past Medical History / Comment(s): Migraines, viral meningitis x3 as a child, 1995, 2000, chronic back pain, nerve blocks (neck and occipital nerve) 08/2016 and 12/2016. Last seizure 10/10/2020, "ABSENT SEIZURES. HX TACHYCARDIA, GBS, Complex PTSD. History of Any Multi-Drug Resistant Organisms: None Reported Past Surgical History: Appendectomy, Section, Cholecystectomy, Heart Catheterization, Heart Catheterization With Stent, Hernia Repair, Hysterectomy, Orthopedic Surgery, Tonsillectomy, Tubal Ligation Additional Past Surgical History / Comment(s): Hiatal Hernia, umbilical hernia repair, left rotator cuff repair, bilateral knee scopes, pain clinic procedures- occipital nerve block. abd exploratory sx(endometreosis), 3 abd scopes 1981, 1989, 1991), lumbar puncture. EGD. nerve biopsy, salvalry gland biospy, Port (Right side 2018, left side 2020), Esophogeal dilation Past Anesthesia/Blood Transfusion Reactions: No Reported Reaction Additional Past Anesthesia/Blood Transfusion Reaction / Comment(s): Claustrophobic Date of Last Stent Placement:: 06/03/2022 Past Psychological History: Anxiety, Bipolar, Panic Disorder, PTSD Smoking Status: Former smoker Past Alcohol Use History: None Reported Past Drug Use History: None Reported - Past Family History Mother Family Medical History: Cancer, Dementia, Diabetes Mellitus, GERD/Reflux, Hy perlipidemia, Hypertension, Thyroid Disorder, Vascular Disorder Additional Family Medical History / Comment(s): CABG x2, stents Father History Unknown: Yes Family Medical History: No Reported History <Andreia Simon - Last Filed: 12/21/23 17:24> General Exam Limitations: no limitations <Andreia Simon - Last Filed: 12/21/23 17:24> General appearance: alert, in no apparent distress Head exam: Present: atraumatic, normocephalic, normal inspection Eye exam: Present: normal appearance, PERRL, EOMI. Absent: scleral icterus, conjunctival injection, periorbital swelling Neck exam: Present: normal inspection. Absent: tenderness, meningismus, lymphadenopathy Respiratory exam: Present: normal lung sounds bilaterally. Absent: respiratory distress, wheezes, rales, rhonchi, stridor Cardiovascular Exam: Present: regular rate, normal rhythm, normal heart sounds. Absent: systolic murmur, diastolic murmur, rubs, gallop, clicks GI/Abdominal exam: Present: soft, normal bowel sounds. Absent: distended, tenderness, guarding, rebound, rigid Extremities exam: Present: normal inspection, full ROM, normal capillary refill. Absent: tenderness, pedal edema, joint swelling, calf tenderness Back exam: Present: normal inspection Neurological exam: Present: alert, oriented X3, CN II-XII intact Skin exam: Present: warm, dry, intact, normal color. Absent: rash <Zee Bonner - Last Filed: 12/22/23 11:37> - General Exam Comments Initial Comments: Visual Physical Exam Vital signs reviewed General: Well-appearing, nontoxic, no acute distress. Head: Normocephalic, atraumatic Eyes: PERRLA, EOMI ENT: Airway patent Chest: Nonlabored breathing Skin: No visual rash, normal skin tone Neuro: Alert and oriented 3 Musculoskeletal: No gross abnormalities (Andreia Simon) Course Vital Signs 12/21/23 12/21/23 12/21/23 17:08 17:10 20:10 Temperature 98.3 F Pulse Rate 110 H 74 70 Pulse Rate [ 67 Pulse Oximetery ] Respiratory 16 16 18 Rate Blood Pressure 138/85 156/80 149/90 O2 Sat by Pulse 100 98 98 Oximetry 12/21/23 12/22/23 22:10 01:15 Temperature Pulse Rate 68 84 Pulse Rate [ Pulse Oximetery ] Respiratory 16 20 Rate Blood Pressure 150/89 146/79 O2 Sat by Pulse 97 98 Oximetry Chest Pain MDM <Andreia Simon - Last Filed: 12/21/23 17:24> <Zee Bonner - Last Filed: 12/22/23 11:37> - [facility] I performed the quick note portion of this chart. Electronically signed by Andreia Simon PA-C (Andreia Simon) Was pt. sent in by a medical professional or institution (SHANTHI Silver, AUTOMOBILE SERVICE ADVISOR, urgent care, hospital, or penitentiary...) When possible be specific @ -No Did you speak to anyone other than the patient for history (EMS, parent, family, police, friend...)? What history was obtained from this source @ -No Did you review nursing and triage notes (agree or disagree)? Why? @ -I reviewed and agree with nursing and triage notes Were old charts reviewed (outside hosp., previous admission, EMS record, old EKG, old radiological studies, urgent care reports/EKG's, penitentiary records)? Report findings @ -No old charts were reviewed Differential Diagnosis (chest pain, altered mental status, abdominal pain women, abdominal pain men, vaginal bleeding, weakness, fever, dyspnea, syncope, headache, dizziness, GI bleed, back pain, seizure, CVA, palpatations, mental health, musculoskeletal)? @ -Differential Headache: Migraine, tension, cluster, carbon monoxide, central venous thrombosis, pension karma temporal arteritis, acute closure glaucoma, intercranial hemorrhage, mastoiditis, sinusitis, head injury, this is not meant to be an all-inclusive list. EKG interpreted by me (3pts min.). @ -Completed at 1859 sinus tachycardia with a ventricular rate of 101, PA inter doug 145, QTc 340. No acute signs of ischemia X-rays interpreted by me (1pt min.). @ -None done CT interpreted by me (1pt min.). @ -None done U/S interpreted by me (1pt. min.). @ -None done What testing was considered but not performed or refused? (CT, X-rays, U/S, labs)? Why? @ -CT imaging of the brain was considered but deferred at this time. Patient states that migraine symptoms are the same as compared to previous history of migraines. Patient has had CT imaging of the brain in the past with no acute findings. Patient is in agreement to trying imaging due to symptoms being the same as previous headaches What meds were considered but not given or refused? Why? @ -None Did you discuss the management of the patient with other professionals (professionals i.e. , PA, AUTOMOBILE SERVICE ADVISOR, lab, RT, psych nurse, clinical social worker, it assistant, teacher, licensed loan officer, protective services case worker)? Give summary @ -No Was smoking cessation discussed for >3mins.? @ -No Was critical care preformed (if so, how long)? @ -No Were there social determinants of health that impacted care today? How? (Homelessness, low income, unemployed, alcoholism, drug addiction, transportation, low edu. Level, literacy, decrease access to med. care, [place] [facility], rehab)? @ -No Was there de-escalation of care discussed even if they declined (Discuss DNR or withdrawal of care, Hospice)? DNR status @ -No What co-morbidities impacted this encounter? (DM, HTN, Smoking, COPD, CAD, Cancer, CVA, ARF, Chemo, Hep., AIDS, mental health diagnosis, sleep apnea, morbid obesity)? @ -None Was patient admitted / discharged? Hospital course, mention meds given and route, prescriptions, significant lab abnormalities, going to OR and other pertinent info. @ -Discharge. 53-year-old female with migraine headache and chest pain. Patient was originally evaluated as a quick note where chest x-ray, EKG and lab work was ordered. On my evaluation the patient she is resting in a dark room and states that she has extreme photophobia due to her migraine. Neurological examination with no acute findings. EKG reveals sinus rhythm. My evaluation the patient she states that she is not currently having any chest pain and states that this lasted for a brief moment while in the waiting room and denies symptoms of palpitations, chest pain or radiation of pain. States that migraine symptoms are same as compared to previous. Patient is provided with pain medication and Benadryl pending results of laboratory studies. CBC, CMP, coagulation profile within normal limits, troponin nonelevated less than 0.012. Reevaluation patient states that migraine has significantly improved after pain medication and states that she feels well to be discharged. All questions answered at bedside and strict return parameters tamika with the patient she is verbalized understanding. Case discussed with Dr. Eller Undiagnosed new problem with uncertain prognosis? @ -No Drug Therapy requiring intensive monitoring for toxicity (Heparin, Nitro, Insulin, Cardizem)? @ -No Were any procedures done? @ -No Diagnosis/symptom? @ -migraine headache Acute, or Chronic, or Acute on Chronic? @ -Acute Uncomplicated (without systemic symptoms) or Complicated (systemic symptoms)? @ -Uncomplicated Side effects of treatment? @ -No Exacerbation, Progression, or Severe Exacerbation? @ -No Poses a threat to life or bodily function? How? (Chest pain, [place], [place], pneumonia, PE, COPD, DKA, ARF, appy, cholecystitis, CVA, Diverticulitis, Homicidal, Suicidal, threat to staff... and all critical care pts) @ -No (Zee Bonner) Disposition <Andreia Simon - Last Filed: 12/21/23 17:24> Is patient prescribed a controlled substance at d/c from ED?: No Time of Disposition: 23:08 <Zee Bonner - Last Filed: 12/22/23 11:37> Clinical Impression: Migraine Disposition: HOME SELF-CARE Condition: Good Instructions (If sedation given, give patient instructions): Migraine Headache (ED) Additional Instructions: Return to the emergency department for any new or worsening symptoms. Recommend that you follow-up with your primary care provider for further evaluation. Referrals: José Reece MD [Primary Care Provider] - 1-2 days
--- NOTE | 2023-12-21 18:44 | XR ---
EXAMINATION TYPE: XR chest 2V DATE OF EXAM: 12/21/2023 6:36 PM CLINICAL INDICATION: Female, 53 years old with history of Chest Pain COMPARISON: Chest radiographs from 11/20/2023 TECHNIQUE: XR chest 2V Frontal view of the chest. FINDINGS: Lungs/Pleura: There is no evidence of pleural effusion, focal consolidation, or pneumothorax. Pulmonary vascularity: Unremarkable. Heart/mediastinum: Cardiomediastinal silhouette is unremarkable. Musculoskeletal: No acute osseous pathology. Other findings: None Left chest wall [id number] with tip in the superior cavoatrial junction. No evidence or pneumothor ax. IMPRESSION: No acute cardiopulmonary disease/process. [facility], , 12/21/2023 6:42 PM
[2023-12-21] MEDS: HYDROmorphone 1 MG/ML 1 ML SYRINGE IVP STA (21:23)
[2023-12-21] MEDS: ONDANSETRON 4 MG/2 ML VIAL IVP STA (21:24)
[2023-12-21] MEDS: SODIUM CHLORIDE 0.9% 1,000 ML IV STA (21:35)
[2023-12-21] MEDS: diphenhydrAMINE 50 MG/ML 1 ML VIAL IVP STA (21:59)
[2023-12-21 22:33] LABS: Basophils % (A) 0 %; Eosinophils % (A) 1 %; HCT 44.3 % (34.0-46.0); HGB 14.3 gm/dL (11.4-16.0); Lymphocytes # (A) 0.9 k/uL (1.0-4.8); Lymphocytes % (A) 12 %; MCH 31.9 pg (25.0-35.0); MCHC 32.3 g/dL (31.0-37.0); MCV 98.5 fL (80.0-100.0); Mean Platelet Volume 9.1; Monocytes # (A) 0.3 k/uL (0-1.0); Monocytes % (A) 4 %; Neutrophils # (A) 6.3 k/uL (1.3-7.7); Neutrophils % (A) 82 %; Platelet Count 283 k/uL (150-450); RBC 4.49 m/uL (3.80-5.40); RDW 13.9 % (11.5-15.5); WBC 7.7 k/uL (3.8-10.6)
[2023-12-21 22:42] LABS: Partial Thromboplastin Time 24.9 sec (22.0-30.0); Prothrombin Time 10.8 sec (10.0-12.5)
[2023-12-21 23:01] LABS: ALT 24 U/L (4-34); AST 36 U/L (14-36); African American GFR (CKD) >90 (>60 ml/min/1.73 sqM); Albumin 3.9 g/dL (3.5-5.0); Alkaline Phosphatase 163 U/L (38-126); Anion Gap 9 mmol/L; Blood Urea Nitrogen 7 mg/dL (7-17); Calcium 9.3 mg/dL (8.4-10.2); Carbon Dioxide 25 mmol/L (22-30); Chloride 103 mmol/L (98-107); Glucose 97 mg/dL (74-99); Magnesium 1.7 mg/dL (1.6-2.3); Non-African American GFR(CKD) 82 (>60 ml/min/1.73 sqM); Sodium 137 mmol/L (137-145); Total Bilirubin 0.5 mg/dL (0.2-1.3); Total Protein 6.3 g/dL (6.3-8.2)
[2023-12-22] MEDS: HYDROmorphone 1 MG/ML 1 ML SYRINGE IVP STA (01:11)
[2023-12-22 01:18] VITALS: BP 146/79; PULSE 84; RESP 20
== END 2023-12-22 01:50 | disposition home or self-care (01) ==
LOC: EC 17:00
CPT/HCPCS: 12015; 36415; 71046; 80053; 83735; 84484; 85025; 85610; 85730; 93005; 96361; 96374; 99285

== ENCOUNTER 2023-12-25 09:53 | Emergency (ER) | payer OTHER ==
[2023-12-25 10:17] VITALS: RESP 18
[2023-12-25] MEDS: HYDROmorphone 1 MG/ML 1 ML SYRINGE IM STA (10:50)
[2023-12-25] MEDS: diphenhydrAMINE 50 MG/ML 1 ML VIAL IM STA (10:51)
[2023-12-25] MEDS: ONDANSETRON 4 MG/2 ML VIAL IM STA (10:51)
--- NOTE | 2023-12-25 10:59 | ED ---
Headache HPI - General Chief Complaint: Headache Stated Complaint: headache Time Seen by Provider: 12/25/23 10:21 Source: patient, RN notes reviewed Mode of arrival: ambulatory Limitations: no limitations - History of Present Illness Initial Comments: 53-year-old female presents emergency department complaint of migraine headache. Patient has chronic migraines unrelieved with her medication at home she does admit to photophobia, nausea vomiting this is her typical headache not the worst headache of her life. She denies any fever chills no neck pain no other complaints. - Related Data Home Medications Medication Instructions Recorded Confirmed Omeprazole [PriLOSEC] 20 mg PO HS 12/15/20 12/10/23 Thiamine [Vitamin B-1] 100 mg PO HS 01/04/21 12/10/23 Atorvastatin [Lipitor] 40 mg PO HS 07/20/21 12/10/23 DULoxetine HCL [Cymbalta] 60 mg PO HS 07/20/21 12/10/23 Atogepant [Qulipta] 60 mg PO HS 06/03/22 12/10/23 Cyclobenzaprine [Flexeril] 10 mg PO TID PRN 06/03/22 12/10/23 HYDROcodone/APAP 10-325MG [[place] 1 tab PO TID 06/03/22 12/10/23 10-325] Aspirin 81 mg PO HS 08/29/22 12/10/23 Cyanocobalamin (Vitamin B-12) 2,000 mcg PO HS 09/07/23 12/10/23 [Vitamin B-12] Multivitamins, Thera [Multivitamin 1 tab PO HS 09/07/23 12/10/23 (formulary)] Zavegepant HCl [Zavzpret] 1 spray NASAL DAILY PRN 09/07/23 12/10/23 Potassium Chloride ER [K-Dur 10] 10 meq PO HS 12/10/23 12/10/23 QUEtiapine [SEROquel] 200 mg PO HS 12/10/23 12/10/23 Allergies Allergy/AdvReac Type Severity Reaction Status Date / Time dihydroergotamine Allergy Unknown Unknown Verified 12/25/23 10:16 [From Migranal] buprenorphine Allergy Rash/Hives Verified 12/25/23 10:16 gabapentin [From Neurontin] Allergy Itching/Swe Verified 12/25/23 10:16 lling latex Allergy Anaphylaxis Verified 12/25/23 10:16 naproxen [From Naprosyn] Allergy Anaphylaxis Verified 12/25/23 10:16 Penicillins Allergy Anaphylaxis Verified 12/25/23 10:16 prednisone Allergy Swelling Verified 12/25/23 10:16 quetiapine fumarate Allergy Itching, Verified 12/25/23 10:16 [From Seroquel] leg cramps rofecoxib [From Vioxx] Allergy Itching, Verified 12/25/23 10:16 leg cramps terfenadine [From Seldane] Allergy Rash/Hives Verified 12/25/23 10:16 vancomycin Allergy Rash/Hives/Swelling Verified 12/25/23 10:16 @IV site calcium carbonate [From DHEA] AdvReac Chest Pain Verified 12/25/23 10:16 calcium phosphate,dibasic AdvReac Chest Pain Verified 12/25/23 10:16 [From DHEA] clindamycin AdvReac muscle Verified 12/25/23 10:16 cramps clonidine AdvReac fast Verified 12/25/23 10:16 heartbeat, migraine dextromethorphan HBr AdvReac face/neck Verified 12/25/23 10:16 [From NyQuil] flushing diazepam [From Valium] AdvReac Nausea & Verified 12/25/23 10:16 Vomiting divalproex sodium AdvReac Nausea & Verified 12/25/23 10:16 [From Depakote] Vomiting doxylamine [From NyQuil] AdvReac face "beet Verified 12/25/23 10:16 red", elevated temp. ibuprofen [From Motrin] AdvReac abdominal Verified 12/25/23 10:16 & muscle cramps indomethacin [From Indocin] AdvReac Abdominal Verified 12/25/23 10:16 Pain,N/V ketorolac tromethamine AdvReac "built up Verified 12/25/23 10:16 [From Toradol] in system", had to be given something to reverse lorazepam [From Ativan] AdvReac Nausea & Verified 12/25/23 10:16 Vomiting memantine [From Namenda] AdvReac Itching Verified 12/25/23 10:16 metoclopramide HCl AdvReac muscle Verified 12/25/23 10:16 [From Reglan] cramps nortriptyline [From Pamelor] AdvReac Chest Pain Verified 12/25/23 10:16 prasterone (DHEA) [From DHEA] AdvReac Chest Pain Verified 12/25/23 10:16 prochlorperazine AdvReac leg Verified 12/25/23 10:16 [From Compazine] cramping propranolol AdvReac Chest Pain Verified 12/25/23 10:16 pseudoephedrine HCl AdvReac face "beet Verified 12/25/23 10:16 [From NyQuil] red", elevated temp. quetiapine [From Seroquel] AdvReac leg Verified 12/25/23 10:16 cramping sumatriptan [From Imitrex] AdvReac migrane Verified 12/25/23 10:16 sumatriptan succinate AdvReac migrane Verified 12/25/23 10:16 [From Imitrex] topiramate [From Topamax] AdvReac "built up Verified 12/25/23 10:16 in system", had to be given something to reverse tramadol AdvReac Nausea & Verified 12/25/23 10:16 Vomiting/LEG CRAMPS/HEART FLUTTERS trazodone AdvReac "built up Verified 12/25/23 10:16 in system", had to be given something to reverse zolpidem tartrate AdvReac "Became Verified 12/25/23 10:16 [From Ambien] violent with no memory" zonisamide [From Zonegran] AdvReac inability Verified 12/25/23 10:16 to eat artificial sweetener AdvReac SEVERE Uncoded 12/25/23 10:16 MIGRAINE HEADACHE prosyn AdvReac Itching Uncoded 12/25/23 10:16 Review of Systems ROS Statement: Those systems with pertinent positive or pertinent negative responses have been documented in the HPI. ROS Other: All systems not noted in ROS Statement are negative. Past Medical History Past Medical History: Hyperlipidemia, Hypertension, Seizure Disorder Additional Past Medical History / Comment(s): Migraines, viral meningitis x3 as a child, 1995, 2000, chronic back pain, nerve blocks (neck and occipital nerve) 08/2016 and 12/2016. Last seizure 10/10/2020, "ABSENT SEIZURES. HX TACHYCARDIA, GBS, Complex PTSD. History of Any Multi-Drug Resistant Organisms: None Reported Past Surgical History: Appendectomy, Section, Cholecystectomy, Heart Catheterization, Heart Catheterization With Stent, Hernia Repair, Hysterectomy, Orthopedic Surgery, Tonsillectomy, Tubal Ligation Additional Past Surgical History / Comment(s): Hiatal Hernia, umbilical hernia repair, left rotator cuff repair, bilateral knee scopes, pain clinic procedures- occipital nerve block. abd exploratory sx(endometreosis), 3 abd scopes 1981, , 1991), lumbar puncture. EGD. nerve biopsy, salvalry gland biospy, Port (Right side 2018, left side 2020), Esophogeal dilation Past Anesthesia/Blood Transfusion Reactions: No Reported Reaction Additional Past Anesthesia/Blood Transfusion Reaction / Comment(s): Claustrophobic Date of Last Stent Placement:: 06/03/2022 Past Psychological History: Anxiety, Bipolar, Panic Disorder, PTSD Smoking Status: Former smoker Past Alcohol Use History: None Reported Past Drug Use History: None Reported - Past Family History Mother Family Medical History: Cancer, Dementia, Diabetes Mellitus, GERD/Reflux, Hyperlipidemia, Hypertension, Thyroid Disorder, Vascular Disorder Additional Family Medical History / Comment(s): CABG x2, stents Father History Unknown: Yes Family Medical History: No Reported History General Exam Limitations: no limitations General appearance: alert, in no apparent distress Head exam: Present: atraumatic, normocephalic, normal inspection Eye exam: Present: normal appearance, PERRL, EOMI. Absent: scleral icterus, conjunctival injection, periorbital swelling ENT exam: Present: normal exam, normal oropharynx, mucous membranes moist Neck exam: Present: normal inspection, full ROM. Absent: tenderness, meningismus, lymphadenopathy Respiratory exam: Present: normal lung sounds bilaterally. Absent: respiratory distress, wheezes, rales, rhonchi, stridor Cardiovascular Exam: Present: regular rate, normal rhythm, normal heart sounds. Absent: systolic murmur, diastolic murmur, rubs, gallop, clicks Neurological exam: Present: alert, oriented X3, CN II-XII intact, reflexes normal. Absent: motor sensory deficit Skin exam: Present: warm, dry, intact, normal color. Absent: rash Course Vital Signs 12/25/23 10:14 Temperature 99.3 F Pulse Rate 89 Respiratory 18 Rate Blood Pressure 160/87 O2 Sat by Pulse 99 Oximetry Medical Decision Making - Medical Decision Making Was pt. sent in by a medical professional or institution (, PA, THIRD MATE, urgent care, hospital, or halfway...) When possible be specific @ -No Did you speak to anyone other than the patient for history (EMS, parent, family, police, friend...)? What history was obtained from this source @ -No Did you review nursing and triage notes (agree or disagree)? Why? @ -I reviewed and agree with nursing and triage notes Were old charts reviewed (outside hosp., previous admission, EMS record, old EKG, old radiological studies, urgent care reports/EKG's, halfway records)? Report findings @ -No old charts were reviewed Differential Diagnosis (chest pain, altered mental status, abdominal pain women, abdominal pain men, vaginal bleeding, weakness, fever, dyspnea, syncope, headache, dizziness, GI bleed, back pain, seizure, CVA, palpatations, mental health, musculoskeletal)? @ -Differential Headache: Migraine, tension, cluster, carbon monoxide, central venous thrombosis, pension karma temporal arteritis, acute closure glaucoma, intercranial hemorrhage, mastoiditis, sinusitis, head injury, this is not meant to be an all-inclusive list. EKG interpreted by me (3pts min.). @ -None X-rays interpreted by me (1pt min.). @ -None done CT interpreted by me (1pt min.). @ -None done U/S interpreted by me (1pt. min.). @ -None done What testing was considered but not performed or refused? (CT, X-rays, U/S, labs )? Why? @ -None What meds were considered but not given or refused? Why? @ -None Did you discuss the management of the patient with other professionals (professionals i.e. , SHANTHI, THIRD MATE, lab, RT, psych nurse, long term care social worker, audio/visual manager, teacher, intelligence officer basic, human services case manager)? Give summary @ -No Was smoking cessation discussed for >3mins.? @ -No Was critical care preformed (if so, how long)? @ -No Were there social determinants of health that impacted care today? How? (Homelessness, low income, unemployed, alcoholism, drug addiction, transportation, low edu. Level, literacy, decrease access to med. care, halfway, rehab)? @ -No Was there de-escalation of care discussed even if they declined (Discuss DNR or withdrawal of care, Hospice)? DNR status @ -No What co-morbidities impacted this encounter? (DM, HTN, Smoking, COPD, CAD, Cancer, CVA, ARF, Chemo, Hep., AIDS, mental health diagnosis, sleep apnea, morbid obesity)? @ -Chronic pain, migraines Was patient admitted / discharged? Hospital course, mention meds given and route, prescriptions, significant lab abnormalities, going to OR and other pertinent info. @ -Discharged patient presented for migraine headache consistent with her normal headaches unrelieved with medications at home patient was provided relief here and discharged in stable condition return for as discussed. Undiagnosed new problem with uncertain prognosis? @ -No Drug Therapy requiring intensive monitoring for toxicity (Heparin, Nitro, Insulin, Cardizem)? @ -No Were any procedures done? @ -No Diagnosis/symptom? @ -Migraine Acute, or Chronic, or Acute on Chronic? @ -Acute Uncomplicated (without systemic symptoms) or Complicated (systemic symptoms)? @ -Uncomplicated Side effects of treatment? @ -No Exacerbation, Progression, or Severe Exacerbation? @ -No Poses a threat to life or bodily function? How? (Chest pain, USA, [place], pneumonia, PE, COPD, DKA, ARF, appy, cholecystitis, CVA, Diverticulitis, Homicidal, Suicidal, threat to staff... and all critical care pts) @ -No Disposition Clinical Impression: Migraine Disposition: HOME SELF-CARE Condition: Stable Instructions (If sedation given, give patient instructions): Acute Headache (ED) Additional Instructions: Please return to the Emergency Department if symptoms worsen or any other concerns. Is patient prescribed a controlled substance at d/c from ED?: No Referrals: José Reece MD [Primary Care Provider] - 1-2 days Time of Disposition: 10:59
[2023-12-25 11:51] VITALS: BP 156/80; PULSE 72; TEMP 99
== END 2023-12-25 11:51 | disposition home or self-care (01) ==
LOC: EC 09:53
DX: G43.909 Migraine, unspecified, not intractable, without status migrainosus (principal)
CPT/HCPCS: 96372; 99283

== ENCOUNTER 2023-12-28 14:07 | Emergency (ER) | payer OTHER ==
[2023-12-28 14:15] VITALS: BP 152/95; PULSE 107; RESP 18; TEMP 98
--- NOTE | 2023-12-28 14:33 | ED ---
General Adult HPI - General Chief complaint: Headache Stated complaint: Headache Time Seen by Provider: 12/28/23 14:18 Source: patient, RN notes reviewed Mode of arrival: ambulatory Limitations: no limitations - History of Present Illness Initial comments: Patient is a 53-year-old female presenting to the emergency department with concerns with headache. Patient states this headache started yesterday and has progressed since that time. Patient does have history of chronic headaches. Patient has many allergies. Patient states she tried Tylenol and Motrin at home. Patient does have associated nausea and some photophobia. Headache is frontal. No weakness or confusion. - Related Data Home Medications Medication Instructions Recorded Confirmed Omeprazole [PriLOSEC] 20 mg PO HS 12/15/20 12/10/23 Thiamine [Vitamin B-1] 100 mg PO HS 01/04/21 12/10/23 Atorvastatin [Lipitor] 40 mg PO HS 07/20/21 12/10/23 DULoxetine HCL [Cymbalta] 60 mg PO HS 07/20/21 12/10/23 Atogepant [Qulipta] 60 mg PO HS 06/03/22 12/10/23 Cyclobenzaprine [Flexeril] 10 mg PO TID PRN 06/03/22 12/10/23 HYDROcodone/APAP 10-325MG [[place] 1 tab PO TID 06/03/22 12/10/23 10-325] Aspirin 81 mg PO HS 08/29/22 12/10/23 Cyanocobalamin (Vitamin B-12) 2,000 mcg PO HS 09/07/23 12/10/23 [Vitamin B-12] Multivitamins, Thera [Multivitamin 1 tab PO HS 09/07/23 12/10/23 (formulary)] Zavegepant HCl [Zavzpret] 1 spray NASAL DAILY PRN 09/07/23 12/10/23 Potassium Chloride ER [K-Dur 10] 10 meq PO HS 12/10/23 12/10/23 QUEtiapine [SEROquel] 200 mg PO HS 12/10/23 12/10/23 Allergies Allergy/AdvReac Type Severity Reaction Status Date / Time dihydroergotamine Allergy Unknown Unknown Verified 12/25/23 10:16 [From Migranal] buprenorphine Allergy Rash/Hives Verified 12/25/23 10:16 gabapentin [From Neurontin] Allergy Itching/Swe Verified 12/25/23 10:16 lling latex Allergy Anaphylaxis Verified 12/25/23 10:16 naproxen [From Naprosyn] Allergy Anaphylaxis Verified 12/25/23 10:16 Penicillins Allergy Anaphylaxis Verified 12/25/23 10:16 prednisone Allergy Swelling Verified 12/25/23 10:16 quetiapine fumarate Allergy Itching, Verified 12/25/23 10:16 [From Seroquel] leg cramps rofecoxib [From Vioxx] Allergy Itching, Verified 12/25/23 10:16 leg cramps terfenadine [From Seldane] Allergy Rash/Hives Verified 12/25/23 10:16 vancomycin Allergy Rash/Hives/Swelling Verified 12/25/23 10:16 @IV site calcium carbonate [From DHEA] AdvReac Chest Pain Verified 12/25/23 10:16 calcium phosphate,dibasic AdvReac Chest Pain Verified 12/25/23 10:16 [From DHEA] clindamycin AdvReac muscle Verified 12/25/23 10:16 cramps clonidine AdvReac fast Verified 12/25/23 10:16 heartbeat, migraine dextromethorphan HBr AdvReac face/neck Verified 12/25/23 10:16 [From NyQuil] flushing diazepam [From Valium] AdvReac Nausea & Verified 12/25/23 10:16 Vomiting divalproex sodium AdvReac Nausea & Verified 12/25/23 10:16 [From Depakote] Vomiting doxylamine [From NyQuil] AdvReac face "beet Verified 12/25/23 10:16 red", elevated temp. ibuprofen [From Motrin] AdvReac abdominal Verified 12/25/23 10:16 & muscle cramps indomethacin [From Indocin] AdvReac Abdominal Verified 12/25/23 10:16 Pain,N/V ketorolac tromethamine AdvReac "built up Verified 12/25/23 10:16 [From Toradol] in system", had to be given something to reverse lorazepam [From Ativan] AdvReac Nausea & Verified 12/25/23 10:16 Vomiting memantine [From Namenda] AdvReac Itching Verified 12/25/23 10:16 metoclopramide HCl AdvReac muscle Verified 12/25/23 10:16 [From Reglan] cramps nortriptyline [From Pamelor] AdvReac Chest Pain Verified 12/25/23 10:16 prasterone (DHEA) [From DHEA] AdvReac Chest Pain Verified 12/25/23 10:16 prochlorperazine AdvReac leg Verified 12/25/23 10:16 [From Compazine] cramping propranolol AdvReac Chest Pain Verified 12/25/23 10:16 pseudoephedrine HCl AdvReac face "beet Verified 12/25/23 10:16 [From NyQuil] red", elevated temp. quetiapine [From Seroquel] AdvReac leg Verified 12/25/23 10:16 cramping sumatriptan [From Imitrex] AdvReac migrane Verified 12/25/23 10:16 sumatriptan succinate AdvReac migrane Verified 12/25/23 10:16 [From Imitrex] topiramate [From Topamax] AdvReac "built up Verified 12/25/23 10:16 in system", had to be given something to reverse tramadol AdvReac Nausea & Verified 12/25/23 10:16 Vomiting/LEG CRAMPS/HEART FLUTTERS trazodone AdvReac "built up Verified 12/25/23 10:16 in system", had to be given something to reverse zolpidem tartrate AdvReac "Became Verified 12/25/23 10:16 [From Ambien] violent with no memory" zonisamide [From Zonegran] AdvReac inability Verified 12/25/23 10:16 to eat artificial sweetener AdvReac SEVERE Uncoded 12/25/23 10:16 MIGRAINE HEADACHE prosyn AdvReac Itching Uncoded 12/25/23 10:16 Review of Systems ROS Statement: Those systems with pertinent positive or pertinent negative responses have been documented in the HPI. ROS Other: All systems not noted in ROS Statement are negative. Constitutional: Denies: fever Eyes: Denies: eye pain ENT: Denies: ear pain Respiratory: Denies: cough, dyspnea Cardiovascular: Denies: chest pain Neurological: Reports: headache. Denies: weakness, numbness, paresthesias, confusion Past Medical History Past Medical History: Hyperlipidemia, Hypertension, Seizure Disorder Additional Past Medical History / Comment(s): Migraines, viral meningitis x3 as a child, 1995, 2000, chronic back pain, nerve blocks (neck and occipital nerve) 08/2016 and 12/2016. Last seizure 10/10/2020, "ABSENT SEIZURES. HX TACHYCARDIA, GBS, Complex PTSD. History of Any Multi-Drug Resistant Organisms: None Reported Past Surgical History: Appendectomy, Section, Cholecystectomy, Heart Catheterization, Heart Catheterization With Stent, Hernia Repair, Hysterectomy, Orthopedic Surgery, Tonsillectomy, Tubal Ligation Additional Past Surgical History / Comment(s): Hiatal Hernia, umbilical hernia repair, left rotator cuff repair, bilateral knee scopes, pain clinic procedures- occipital nerve block. abd exploratory sx(endometreosis), 3 abd scopes 1981, 1989, 1991), lumbar puncture. EGD. nerve biopsy, salvalry gland biospy, Port (Right side 2018, left side 2020), Esophogeal dilation Past Anesthesia/Blood Transfusion Reactions: No Reported Reaction Additional Past Anesthesia/Blood Transfusion Reaction / Comment(s): Claustrophobic Date of Last Stent Placement:: 06/03/2022 Past Psychological History: Anxiety, Bipolar, Panic Disorder, PTSD Smoking Status: Former smoker Past Alcohol Use History: None Reported Past Drug Use History: None Reported - Past Family History Mother Family Medical History: Cancer, Dementia, Diabetes Mellitus, GERD/Reflux, Hyperlipidemia, Hypertension, Thyroid Disorder, Vascular Disorder Additional Family Medical History / Comment(s): CABG x2, stents Father History Unknown: Yes Family Medical History: No Reported History General Exam Limitations: no limitations General appearance: alert, in no apparent distress Head exam: Present: normocephalic Eye exam: Present: normal appearance, PERRL, EOMI Neck exam: Present: normal inspection. Absent: tenderness, meningismus Respiratory exam: Present: normal lung sounds bilaterally Cardiovascular Exam: Present: regular rate, normal rhythm GI/Abdominal exam: Present: soft. Absent: tenderness Extremities exam: Present: normal inspection Neurological exam: Present: alert, CN II-XII intact. Absent: motor sensory deficit Expanded Neurological exam: Present: protecting the airway Speech: Present: fluid speech Motor strength exam: RUE: 5, LUE: 5, RLE: 5, LLE: 5 Eye Response: (4) open spontaneously Motor Response: (6) obeys commands Verbal Response: (5) oriented Psychiatric exam: Present: normal affect, normal mood Skin exam: Present: normal color Course Vital Signs 12/28/23 14:10 Temperature 98.0 F Pulse Rate 107 H Respiratory 18 Rate Blood Pressure 152/95 O2 Sat by Pulse 99 Oximetry Medical Decision Making - Medical Decision Making MDM back was pt. sent in by a medical professional or institution (, PA, SKEIN MERCERIZING MACHINE OPERATOR, urgent care, hospital, or senior care...) When possible be specific @ -No Did you speak to anyone other than the patient for history (EMS, parent, family, police, friend...)? What history was obtained from this source @ -No Did you review nursing and triage notes (agree or disagree)? Why? @ -I reviewed and agree with nursing and triage notes Were old charts reviewed (outside hosp., previous admission, EMS record, old EKG, old radiological studies, urgent care reports/EKG's, senior care records)? Report findings @ -Multiple previous charts and CTs reviewed Differential Diagnosis (chest pain, altered mental status, abdominal pain women, abdominal pain men, vaginal bleeding, weakness, fever, dyspnea, syncope, headache, dizziness, GI bleed, back pain, seizure, CVA, palpatations, mental health, musculoskeletal)? @ -M differential headache differential Headache: Migraine, tension, cluster, carbon monoxide, central venous thrombosis, pension karma temporal arteritis, acute closure glaucoma, intercranial hemorrhage, mastoiditis, sinusitis, head injury, this is not meant to be an all-inclusive list. EKG interpreted by me (3pts min.). @ -As above X-rays interpreted by me (1pt min.). @ -None done CT interpreted by me (1pt min.). @ -None done U/S interpreted by me (1pt. min.). @ -None done What testing was considered but not performed or refused? (CT, X-rays, U/S, labs)? Why? @ -imaging however patient has had multiple previous imaging What meds were considered but not given or refused? Why? @ -None Did you discuss the management of the patient with other professionals (professionals i.e. , SHANTHI, SKEIN MERCERIZING MACHINE OPERATOR, lab, RT, psych nurse, social science instructor, finisher special stocks, teacher, training officer, shelter case manager)? Give summary @ -No Was smoking cessation discussed for >3mins.? @ -No Was critical care preformed (if so, how long)? @ -No Were there social determinants of health that impacted care today? How? (Homelessness, low income, unemployed, alcoholism, drug addiction, transportation, low edu. Level, literacy, decrease access to med. care, retirement, rehab)? @ -No Was there de-escalation of care discussed even if they declined (Discuss DNR or withdrawal of care, Hospice)? DNR status @ -No What co-morbidities impacted this encounter? (DM, HTN, Smoking, COPD, CAD, Cancer, CVA, ARF, Chemo, Hep., AIDS, mental health diagnosis, sleep apnea, morbid obesity)? @ -Chronic headache Was patient admitted / discharged? Hospital course, mention meds given and route, prescriptions, significant lab abnormalities, going to OR and other pertinent info. @ -Patient presents with a chronic headache. Discussion regarding pain medications as patient has multiple allergies. Patient will be given IM Zofran and Benadryl and discharged. Exam and history unremarkable Undiagnosed new problem with uncertain prognosis? @ -No Drug Therapy requiring intensive monitoring for toxicity (Heparin, Nitro, Insulin, Cardizem)? @ -No Were any procedures done? @ -No Diagnosis/symptom? @ -Headache Acute, or Chronic, or Acute on Chronic? @ -Acute on chronic Uncomplicated (without systemic symptoms) or Complicated (systemic symptoms)? @ -Default Side effects of treatment? @ -No Exacerbation, Progression, or Severe Exacerbation? @ -No Poses a threat to life or bodily function? How? (Chest pain, USA, [place], pneumonia, PE, COPD, DKA, ARF, appy, cholecystitis, CVA, Diverticulitis, Homicidal, Suicidal, threat to staff... and all critical care pts) @ -No Disposition Clinical Impression: Headache Disposition: HOME SELF-CARE Condition: Stable Instructions (If sedation given, give patient instructions): Acute Headache (ED) Additional Instructions: Please do follow-up with your primary care physician in the next day or 2 for recheck. Return for fever, vomiting, weakness, confusion, worsening symptoms or other concerns. Is patient prescribed a controlled substance at d/c from ED?: No Referrals: José Reece MD [Primary Care Provider] - 1-2 days Time of Disposition: 14:32
[2023-12-28] MEDS: ONDANSETRON 4 MG/2 ML VIAL IM STA (14:36)
[2023-12-28] MEDS: diphenhydrAMINE 50 MG/ML 1 ML VIAL IM STA (14:36)
== END 2023-12-28 14:41 | disposition home or self-care (01) ==
LOC: EC 14:07
CPT/HCPCS: 96372; 99283

== ENCOUNTER 2023-12-29 15:44 | Emergency (ER) | payer OTHER ==
[2023-12-29 15:59] VITALS: RESP 18; TEMP 98.2
--- NOTE | 2023-12-29 16:31 | ED ---
Headache HPI - General Chief Complaint: Headache Stated Complaint: fever,headache Time Seen by Provider: 12/29/23 16:04 Source: patient, RN notes reviewed Mode of arrival: ambulatory Limitations: no limitations - History of Present Illness Initial Comments: 53-year-old female presents emergency department complaint of migraine headache. Patient states she has had some URI symptoms possible fever. Denies neck pain or neck stiffness complains of migraine headache which is chronic for her. Patient states that she tried her medications at home with no relief. Patient has any focal weakness no other complaints. - Related Data Home Medications Medication Instructions Recorded Confirmed Omeprazole [PriLOSEC] 20 mg PO HS 12/15/20 12/10/23 Thiamine [Vitamin B-1] 100 mg PO HS 01/04/21 12/10/23 Atorvastatin [Lipitor] 40 mg PO HS 07/20/21 12/10/23 DULoxetine HCL [Cymbalta] 60 mg PO HS 07/20/21 12/10/23 Atogepant [Qulipta] 60 mg PO HS 06/03/22 12/10/23 Cyclobenzaprine [Flexeril] 10 mg PO TID PRN 06/03/22 12/10/23 HYDROcodone/APAP 10-325MG [[place] 1 tab PO TID 06/03/22 12/10/23 10-325] Aspirin 81 mg PO HS 08/29/22 12/10/23 Cyanocobalamin (Vitamin B-12) 2,000 mcg PO HS 09/07/23 12/10/23 [Vitamin B-12] Multivitamins, Thera [Multivitamin 1 tab PO HS 09/07/23 12/10/23 (formulary)] Zavegepant HCl [Zavzpret] 1 spray NASAL DAILY PRN 09/07/23 12/10/23 Potassium Chloride ER [K-Dur 10] 10 meq PO HS 12/10/23 12/10/23 QUEtiapine [SEROquel] 200 mg PO HS 12/10/23 12/10/23 Allergies Allergy/AdvReac Type Severity Reaction Status Date / Time dihydroergotamine Allergy Unknown Unknown Verified 12/29/23 16:00 [From Migranal] buprenorphine Allergy Rash/Hives Verified 12/29/23 16:00 gabapentin [From Neurontin] Allergy Itching/Swe Verified 12/29/23 16:00 lling latex Allergy Anaphylaxis Verified 12/29/23 16:00 naproxen [From Naprosyn] Allergy Anaphylaxis Verified 12/29/23 16:00 Penicillins Allergy Anaphylaxis Verified 12/29/23 16:00 prednisone Allergy Swelling Verified 12/29/23 16:00 quetiapine fumarate Allergy Itching, Verified 12/29/23 16:00 [From Seroquel] leg cramps rofecoxib [From Vioxx] Allergy Itching, Verified 12/29/23 16:00 leg cramps terfenadine [From Seldane] Allergy Rash/Hives Verified 12/29/23 16:00 vancomycin Allergy Rash/Hives/Swelling Verified 12/29/23 16:00 @IV site calcium carbonate [From DHEA] AdvReac Chest Pain Verified 12/29/23 16:00 calcium phosphate,dibasic AdvReac Chest Pain Verified 12/29/23 16:00 [From DHEA] clindamycin AdvReac muscle Verified 12/29/23 16:00 cramps clonidine AdvReac fast Verified 12/29/23 16:00 heartbeat, migraine dextromethorphan HBr AdvReac face/neck Verified 12/29/23 16:00 [From NyQuil] flushing diazepam [From Valium] AdvReac Nausea & Verified 12/29/23 16:00 Vomiting divalproex sodium AdvReac Nausea & Verified 12/29/23 16:00 [From Depakote] Vomiting doxylamine [From NyQuil] AdvReac face "beet Verified 12/29/23 16:00 red", elevated temp. ibuprofen [From Motrin] AdvReac abdominal Verified 12/29/23 16:00 & muscle cramps indomethacin [From Indocin] AdvReac Abdominal Verified 12/29/23 16:00 Pain,N/V ketorolac tromethamine AdvReac "built up Verified 12/29/23 16:00 [From Toradol] in system", had to be given something to reverse lorazepam [From Ativan] AdvReac Nausea & Verified 12/29/23 16:00 Vomiting memantine [From Namenda] AdvReac Itching Verified 12/29/23 16:00 metoclopramide HCl AdvReac muscle Verified 12/29/23 16:00 [From Reglan] cramps nortriptyline [From Pamelor] AdvReac Chest Pain Verified 12/29/23 16:00 prasterone (DHEA) [From DHEA] AdvReac Chest Pain Verified 12/29/23 16:00 prochlorperazine AdvReac leg Verified 12/29/23 16:00 [From Compazine] cramping propranolol AdvReac Chest Pain Verified 12/29/23 16:00 pseudoephedrine HCl AdvReac face "beet Verified 12/29/23 16:00 [From NyQuil] red", elevated temp. quetiapine [From Seroquel] AdvReac leg Verified 12/29/23 16:00 cramping sumatriptan [From Imitrex] AdvReac migrane Verified 12/29/23 16:00 sumatriptan succinate AdvReac migrane Verified 12/29/23 16:00 [From Imitrex] topiramate [From Topamax] AdvReac "built up Verified 12/29/23 16:00 in system", had to be given something to reverse tramadol AdvReac Nausea & Verified 12/29/23 16:00 Vomiting/LEG CRAMPS/HEART FLUTTERS trazodone AdvReac "built up Verified 12/29/23 16:00 in system", had to be given something to reverse zolpidem tartrate AdvReac "Became Verified 12/29/23 16:00 [From Ambien] violent with no memory" zonisamide [From Zonegran] AdvReac inability Verified 12/29/23 16:00 to eat artificial sweetener AdvReac SEVERE Uncoded 12/29/23 16:00 MIGRAINE HEADACHE prosyn AdvReac Itching Uncoded 12/29/23 16:00 Review of Systems ROS Statement: Those systems with pertinent positive or pertinent negative responses have been documented in the HPI. ROS Other: All systems not noted in ROS Statement are negative. Past Medical History Past Medical History: Hyperlipidemia, Hypertension, Seizure Disorder Additional Past Medical History / Comment(s): Migraines, viral meningitis x3 as a child, 1995, 2000, chronic back pain, nerve blocks (neck and occipital nerve) 08/2016 and 12/2016. Last seizure 10/10/2020, "ABSENT SEIZURES. HX TACHYCARDIA, GBS, Complex PTSD. History of Any Multi-Drug Resistant Organisms: None Reported Past Surgical History: Appendectomy, Section, Cholecystectomy, Heart Catheterization, Heart Catheterization With Stent, Hernia Repair, Hysterectomy, Orthopedic Surgery, Tonsillectomy, Tubal Ligation Additional Past Surgical History / Comment(s): Hiatal Hernia, umbilical hernia repair, left rotator cuff repair, bilateral knee scopes, pain clinic procedures- occipital nerve block. abd exploratory sx(endometreosis), 3 abd scopes 1981, 1989, 1991), lumbar puncture. EGD. nerve biopsy, salvalry gland biospy, Port (Right side 2018, left side 2020), Esophogeal dilation Past Anesthesia/Blood Transfusion Reactions: No Reported Reaction Additional Past Anesthesia/Blood Transfusion Reaction / Comment(s): Claustrophobic Date of Last Stent Placement:: 06/03/2022 Past Psychological History: Anxiety, Bipolar, Panic Disorder, PTSD Smoking Status: Former smoker Past Alcohol Use History: None Reported Past Drug Use History: None Reported - Past Family History Mother Family Medical History: Cancer, Dementia, Diabetes Mellitus, GERD/Reflux, Hyperlipidemia, Hypertension, Thyroid Disorder, Vascular Disorder Additional Family Medical History / Comment(s): CABG x2, stents Father History Unknown: Yes Family Medical History: No Reported History General Exam Limitations: no limitations General appearance: alert, in no apparent distress Head exam: Present: atraumatic, normocephalic, normal inspection Eye exam: Present: normal appearance, PERRL, EOMI. Absent: scleral icterus, conjunctival injection, periorbital swelling ENT exam: Present: normal exam, normal oropharynx, mucous membranes moist Neck exam: Present: normal inspection, full ROM. Absent: tenderness, meningismus, lymphadenopathy Respiratory exam: Present: normal lung sounds bilaterally. Absent: respiratory distress, wheezes, rales, rhonchi, stridor Cardiovascular Exam: Present: regular rate, normal rhythm, normal heart sounds. Absent: systolic murmur, diastolic murmur, rubs, gallop, clicks GI/Abdominal exam: Present: soft, normal bowel sounds. Absent: distended, tenderness, guarding, rebound, rigid Neurological exam: Present: alert, oriented X3, CN II-XII intact, reflexes normal. Absent: motor sensory deficit Skin exam: Present: warm, dry, intact, normal color. Absent: rash Course Vital Signs 12/29/23 12/29/23 15:58 18:43 Temperature 98.2 F Pulse Rate 112 H 79 Respiratory 18 18 Rate Blood Pressure 140/92 152/90 O2 Sat by Pulse 99 97 Oximetry Medical Decision Making - Medical Decision Making Was pt. sent in by a medical professional or institution (SHANTHI Silver, TELEVISION ACTOR, urgent care, hospital, or fpc...) When possible be specific @ -No Did you speak to anyone other than the patient for history (EMS, parent, family, police, friend...)? What history was obtained from this source @ -No Did you review nursing and triage notes (agree or disagree)? Why? @ -I reviewed and agree with nursing and triage notes Were old charts reviewed (outside hosp., previous admission, EMS record, old EKG, old radiological studies, urgent care reports/EKG's, fpc records)? Report findings @ -No old charts were reviewed Differential Diagnosis (chest pain, altered mental status, abdominal pain women, abdominal pain men, vaginal bleeding, weakness, fever, dyspnea, syncope, headache, dizziness, GI bleed, back pain, seizure, CVA, palpatations, mental health, musculoskeletal)? @ -COVID 19, RSV, influenza, pneumonia, acute bronchitis, URI, this list is not all inclusive EKG interpreted by me (3pts min.). @ -None X-rays interpreted by me (1pt min.). @ -None done CT interpreted by me (1pt min.). @ -None done U/S interpreted by me (1pt. min.). @ -None done What testing was considered but not performed or refused? (CT, X-rays, U/S, labs)? Why? @ -None What meds were considered but not given or refused? Why? @ -None Did you discuss the management of the patient with other professionals (profe ssionals i.e. SHANTHI Silver, TELEVISION ACTOR, lab, RT, psych nurse, social psychologist, auto dealership porter, teacher, medical corps officer, housing case manager)? Give summary @ -No Was smoking cessation discussed for >3mins.? @ -No Was critical care preformed (if so, how long)? @ -No Were there social determinants of health that impacted care today? How? (Homelessness, low income, unemployed, alcoholism, drug addiction, transportation, low edu. Level, literacy, decrease access to med. care, snf, rehab)? @ -No Was there de-escalation of care discussed even if they declined (Discuss DNR or withdrawal of care, Hospice)? DNR status @ -No What co-morbidities impacted this encounter? (DM, HTN, Smoking, COPD, CAD, Cancer, CVA, ARF, Chemo, Hep., AIDS, mental health diagnosis, sleep apnea, morbid obesity)? @ -None Was patient admitted / discharged? Hospital course, mention meds given and route, prescriptions, significant lab abnormalities, going to OR and other pertinent info. @ -Charge patient presented for URI symptoms possible fever. Patient also has migraine headache chronic for this patient there are no focal weakness and this is typical headache for patient patient provided analgesics patient discharged in stable addition but negative viral swab. Undiagnosed new problem with uncertain prognosis? @ -No Drug Therapy requiring intensive monitoring for toxicity (Heparin, Nitro, Insulin, Cardizem)? @ -No Were any procedures done? @ -No Diagnosis/symptom? @ -URI, migraine Acute, or Chronic, or Acute on Chronic? @ -Acute Uncomplicated (without systemic symptoms) or Complicated (systemic symptoms)? @ -uncomplicated Side effects of treatment? @ -No Exacerbation, Progression, or Severe Exacerbation? @ -No Poses a threat to life or bodily function? How? (Chest pain, [place], [place], pneumonia, PE, COPD, DKA, ARF, appy, cholecystitis, CVA, Diverticulitis, Homicidal, Suicidal, threat to staff... and all critical care pts) @ -No - Lab Data Lab Results 12/29/23 Range/Units 16:49 Influenza Type A (PCR) Not Detected (Not Detectd) Influenza Type B (PCR) Not Detected (Not Detectd) RSV (PCR) Not Detected (Not Detectd) SARS-CoV-2 (PCR) Not Detected (Not Detectd) Disposition Clinical Impression: Migraine Disposition: HOME SELF-CARE Condition: Stable Instructions (If sedation given, give patient instructions): Acute Headache (ED) Additional Instructions: Please return to the Emergency Department if symptoms worsen or any other concerns. Is patient prescribed a controlled substance at d/c from ED?: No Referrals: José Reece MD [Primary Care Provider] - 1-2 days Time of Disposition: 17:51
[2023-12-29] MEDS: HYDROmorphone 1 MG/ML 1 ML SYRINGE IM STA (18:10)
[2023-12-29] MEDS: diphenhydrAMINE 50 MG/ML 1 ML VIAL IM STA (18:13)
[2023-12-29] MEDS: ONDANSETRON 4 MG/2 ML VIAL IM STA (18:14)
[2023-12-29 18:44] VITALS: BP 152/90; PULSE 79
== END 2023-12-29 18:44 | disposition home or self-care (01) ==
LOC: EC 15:44
CPT/HCPCS: 87636; 96372; 99283

== ENCOUNTER 2024-01-02 16:26 | Emergency (ER) | payer OTHER ==
--- NOTE | 2024-01-02 17:21 | ED ---
General Adult HPI - General Chief complaint: Chest Pain Stated complaint: Chest and back pain Time Seen by Provider: 01/02/24 16:32 Source: patient, RN notes reviewed, old records reviewed Mode of arrival: ambulatory Limitations: no limitations - History of Present Illness Initial comments: 53-year-old female presenting with persistent chest pain. This been ongoing for several weeks. Patient states she has had a cough. She also reports subjective fever and chills. No abdominal pain. She has had some nausea and vomiting associated with this as well. Prior history of CAD. No lower extremity pain or swelling - Related Data Home Medications Medication Instructions Recorded Confirmed Omeprazole [PriLOSEC] 20 mg PO HS 12/15/20 12/10/23 Thiamine [Vitamin B-1] 100 mg PO HS 01/04/21 12/10/23 Atorvastatin [Lipitor] 40 mg PO HS 07/20/21 12/10/23 DULoxetine HCL [Cymbalta] 60 mg PO HS 07/20/21 12/10/23 Atogepant [Qulipta] 60 mg PO HS 06/03/22 12/10/23 Cyclobenzaprine [Flexeril] 10 mg PO TID PRN 06/03/22 12/10/23 HYDROcodone/APAP 10-325MG [[place] 1 tab PO TID 06/03/22 12/10/23 10-325] Aspirin 81 mg PO HS 08/29/22 12/10/23 Cyanocobalamin (Vitamin B-12) 2,000 mcg PO HS 09/07/23 12/10/23 [Vitamin B-12] Multivitamins, Thera [Multivitamin 1 tab PO HS 09/07/23 12/10/23 (formulary)] Zavegepant HCl [Zavzpret] 1 spray NASAL DAILY PRN 09/07/23 12/10/23 Potassium Chloride ER [K-Dur 10] 10 meq PO HS 12/10/23 12/10/23 QUEtiapine [SEROquel] 200 mg PO HS 12/10/23 12/10/23 Allergies Allergy/AdvReac Type Severity Reaction Status Date / Time dihydroergotamine Allergy Unknown Unknown Verified 12/29/23 16:00 [From Migranal] buprenorphine Allergy Rash/Hives Verified 12/29/23 16:00 gabapentin [From Neurontin] Allergy Itching/Swe Verified 12/29/23 16:00 lling latex Allergy Anaphylaxis Verified 12/29/23 16:00 naproxen [From Naprosyn] Allergy Anaphylaxis Verified 12/29/23 16:00 Penicillins Allergy Anaphylaxis Verified 12/29/23 16:00 prednisone Allergy Swelling Verified 12/29/23 16:00 quetiapine fumarate Allergy Itching, Verified 12/29/23 16:00 [From Seroquel] leg cramps rofecoxib [From Vioxx] Allergy Itching, Verified 12/29/23 16:00 leg cramps terfenadine [From Seldane] Allergy Rash/Hives Verified 12/29/23 16:00 vancomycin Allergy Rash/Hives/Swelling Verified 12/29/23 16:00 @IV site calcium carbonate [From DHEA] AdvReac Chest Pain Verified 12/29/23 16:00 calcium phosphate,dibasic AdvReac Chest Pain Verified 12/29/23 16:00 [From DHEA] clindamycin AdvReac muscle Verified 12/29/23 16:00 cramps clonidine AdvReac fast Verified 12/29/23 16:00 heartbeat, migraine dextromethorphan HBr AdvReac face/neck Verified 12/29/23 16:00 [From NyQuil] flushing diazepam [From Valium] AdvReac Nausea & Verified 12/29/23 16:00 Vomiting divalproex sodium AdvReac Nausea & Verified 12/29/23 16:00 [From Depakote] Vomiting doxylamine [From NyQuil] AdvReac face "beet Verified 12/29/23 16:00 red", elevated temp. ibuprofen [From Motrin] AdvReac abdominal Verified 12/29/23 16:00 & muscle cramps indomethacin [From Indocin] AdvReac Abdominal Verified 12/29/23 16:00 Pain,N/V ketorolac tromethamine AdvReac "built up Verified 12/29/23 16:00 [From Toradol] in system", had to be given something to reverse lorazepam [From Ativan] AdvReac Nausea & Verified 12/29/23 16:00 Vomiting memantine [From Namenda] AdvReac Itching Verified 12/29/23 16:00 metoclopramide HCl AdvReac muscle Verified 12/29/23 16:00 [From Reglan] cramps nortriptyline [From Pamelor] AdvReac Chest Pain Verified 12/29/23 16:00 prasterone (DHEA) [From DHEA] AdvReac Chest Pain Verified 12/29/23 16:00 prochlorperazine AdvReac leg Verified 12/29/23 16:00 [From Compazine] cramping propranolol AdvReac Chest Pain Verified 12/29/23 16:00 pseudoephedrine HCl AdvReac face "beet Verified 12/29/23 16:00 [From NyQuil] red", elevated temp. quetiapine [From Seroquel] AdvReac leg Verified 12/29/23 16:00 cramping sumatriptan [From Imitrex] AdvReac migrane Verified 12/29/23 16:00 sumatriptan succinate AdvReac migrane Verified 12/29/23 16:00 [From Imitrex] topiramate [From Topamax] AdvReac "built up Verified 12/29/23 16:00 in system", had to be given something to reverse tramadol AdvReac Nausea & Verified 12/29/23 16:00 Vomiting/LEG CRAMPS/HEART FLUTTERS trazodone AdvReac "built up Verified 12/29/23 16:00 in system", had to be given something to reverse zolpidem tartrate AdvReac "Became Verified 12/29/23 16:00 [From Ambien] violent with no memory" zonisamide [From Zonegran] AdvReac inability Verified 12/29/23 16:00 to eat artificial sweetener AdvReac SEVERE Uncoded 12/29/23 16:00 MIGRAINE HEADACHE prosyn AdvReac Itching Uncoded 12/29/23 16:00 Review of Systems ROS Statement: Those systems with pertinent positive or pertinent negative responses have been documented in the HPI. ROS Other: All systems not noted in ROS Statement are negative. Past Medical History Past Medical History: Hyperlipidemia, Hypertension, Seizure Disorder Additional Past Medical History / Comment(s): Migraines, viral meningitis x3 as a child, 1995, 2000, chronic back pain, nerve blocks (neck and occipital nerve) 08/2016 and 12/2016. Last seizure 10/10/2020, "ABSENT SEIZURES. HX TACHYCARDIA, GBS, Complex PTSD. gillean barre History of Any Multi-Drug Resistant Organisms: None Reported Past Surgical History: Appendectomy, Section, Cholecystectomy, Heart Catheterization, Heart Catheterization With Stent, Hernia Repair, Hysterectomy, Orthopedic Surgery, Tonsillectomy, Tubal Ligation Additional Past Surgical History / Comment(s): Hiatal Hernia, umbilical hernia repair, left rotator cuff repair, bilateral knee scopes, pain clinic procedures- occipital nerve block. abd exploratory sx(endometreosis), 3 abd scopes 1981, 1989, 1991), lumbar puncture. EGD. nerve biopsy, salvalry gland biospy, Port (Right side 2018, left side 2020), Esophogeal dilation Past Anesthesia/Blood Transfusion Reactions: No Reported Reaction Additional Past Anesthesia/Blood Transfusion Reaction / Comment(s): Claustrophobic Date of Last Stent Placement:: 06/03/2022 Past Psychological History: Anxiety, Bipolar, Panic Disorder, PTSD Smoking Status: Former smoker Past Alcohol Use History: None Reported Past Drug Use History: None Reported - Past Family History Mother Family Medical History: Cancer, Dementia, Diabetes Mellitus, GERD/Reflux, Hyperlipidemia, Hypertension, Thyroid Disorder, Vascular Disorder Additional Family Medical History / Comment(s): CABG x2, stents Father History Unknown: Yes Family Medical History: No Reported History General Exam Limitations: no limitations General appearance: alert, in no apparent distress Head exam: Present: atraumatic, normocephalic Eye exam: Present: normal appearance, PERRL Neck exam: Present: normal inspection. Absent: tenderness, meningismus Respiratory exam: Present: normal lung sounds bilaterally. Absent: respiratory distress, wheezes Cardiovascular Exam: Present: normal rhythm, tachycardia GI/Abdominal exam: Present: soft. Absent: distended, tenderness, guarding Extremities exam: Present: normal inspection, normal capillary refill. Absent: pedal edema, calf tenderness Neurological exam: Present: alert, oriented X3, CN II-XII intact. Absent: motor sensory deficit Psychiatric exam: Present: normal affect, normal mood Skin exam: Present: warm, dry, intact. Absent: cyanosis, diaphoretic Course Vital Signs 01/02/24 01/02/24 01/02/24 16:28 17:53 18:54 Temperature 97.8 F 98.3 F Pulse Rate 122 H 90 98 Respiratory 24 18 20 Rate Blood Pressure 148/110 132/100 155/83 O2 Sat by Pulse 98 100 99 Oximetry Medical Decision Making - Medical Decision Making Was pt. sent in by a medical professional or institution (SHANTHI Silver, RUG INSPECTOR HELPER, urgent care, hospital, or long term...) When possible be specific @ -[No] Did you speak to anyone other than the patient for history (EMS, parent, family, police, friend...)? What history was obtained from this source @ -[No] Did you review nursing and triage notes (agree or disagree)? Why? @ -[I reviewed and agree with nursing and triage notes] Were old charts reviewed (outside hosp., previous admission, EMS record, old EKG, old radiological studies, urgent care reports/EKG's, long term records)? Report findings @ -[No old charts were reviewed] Differential Chest Pain: Stable Angina, Unstable Angina, STEMI, NSTEMI Aortic Dissection, Pneumothorax, Musculoskeletal, Esophageal Spasm GERD, Cholecystitis, Pancreatitis, Zoster, this is not meant to be an all-inclusive list. EKG interpreted by me (3pts min.). @ -Sinus tachycardia 101, W[place] interval 143, QRS duration 75, QTc [address] segment elevation. X-rays interpreted by me (1pt min.). @Chest x-ray negative for acute cardiopulmonary findings CT interpreted by me (1pt min.). @ -[None done] U/S interpreted by me (1pt. min.). @ -[None done] What testing was considered but not performed or refused? (CT, X-rays, U/S, labs)? Why? @ -[None] What meds were considered but not given or refused? Why? @ -[None] Did you discuss the management of the patient with other professionals (professionals i.e. SHANTHI Silver, RUG INSPECTOR HELPER, lab, RT, psych nurse, adoption social worker, pug mill operator helper, teacher, special service officer, disease case manager rn)? Give summary @ -[No] Was smoking cessation discussed for >3mins.? @ -[No] Was critical care preformed (if so, how long)? @ -[No] Were there social determinants of health that impacted care today? How? (Homelessness, low income, unemployed, alcoholism, drug addiction, transportation, low edu. Level, literacy, decrease access to med. care, mcc, rehab)? @ -[No] Was there de-escalation of care discussed even if they declined (Discuss DNR or withdrawal of care, Hospice)? DNR status @ -[No] What co-morbidities impacted this encounter? (DM, HTN, Smoking, COPD, CAD, Cancer, CVA, ARF, Chemo, Hep., AIDS, mental health diagnosis, sleep apnea, morbid obesity)? @ -[CAD Was patient admitted / discharged? Hospital course, mention meds given and route, prescriptions, significant lab abnormalities, going to OR and other pertinent info. @ -53-year-old female with persistent atypical chest pain. Patient is initially tachycardic. This does respond to IV fluids. No dyspnea. No lower extremity pain or swelling. Laboratory testing unremarkable. Patient reassured , and eager for discharge. Undiagnosed new problem with uncertain prognosis? @ -[No] Drug Therapy requiring intensive monitoring for toxicity (Heparin, Nitro, Insulin, Cardizem)? @ -[No] Were any procedures done? @ -[No] Diagnosis/symptom? @ -Chest pain atypical Acute, or Chronic, or Acute on Chronic? @ -[Acute on chronic Uncomplicated (without systemic symptoms) or Complicated (systemic symptoms)? @ -[default] Side effects of treatment? @ -[No] Exacerbation, Progression, or Severe Exacerbation? @ -[No] Poses a threat to life or bodily function? How? (Chest pain, USA, ND, pneumonia, PE, COPD, DKA, ARF, appy, cholecystitis, CVA, Diverticulitis, Homicidal, Suicidal, threat to staff... and all critical care pts) @ -[Low risk at this time - Lab Data Result diagrams: 01/02/24 17:40 01/02/24 17:40 Lab Results 01/02/24 01/02/24 01/02/24 Range/Units 17:40 17:40 17:40 WBC 7.3 (3.8-10.6) k/uL RBC 4.35 (3.80-5.40) m/uL Hgb 14.3 (11.4-16.0) gm/dL Hct 43.3 (34.0-46.0) % MCV 99.5 (80.0-100.0) fL MCH 32.9 (25.0-35.0) pg MCHC 33.1 (31.0-37.0) g/dL RDW 13.7 (11.5-15.5) % Plt Count 302 (150-450) k/uL MPV 8.3 Neutrophils % 77 % Lymphocytes % 16 % Monocytes % 5 % Eosinophils % 0 % Basophils % 0 % Neutrophils # 5.6 (1.3-7.7) k/uL Lymphocytes # 1.1 (1.0-4.8) k/uL Monocytes # 0.3 (0-1.0) k/uL Eosinophils # 0.0 (0-0.7) k/uL Basophils # 0.0 (0-0.2) k/uL PT 11.3 (10.0-12.5) sec INR 1.0 (<1.2) APTT 25.9 (22.0-30.0) sec Sodium 136 L (137-145) mmol/L Potassium 3.4 L (3.5-5.1) mmol/L Chloride 104 (98-107) mmol/L Carbon Dioxide 29 (22-30) mmol/L Anion Gap 3 mmol/L BUN 6 L (7-17) mg/dL Creatinine 0.88 (0.52-1.04) mg/dL Est GFR (CKD-EPI)AfAm 89 (>60 ml/min/1.73 sqM) Est GFR (CKD-EPI)NonAf 77 (>60 ml/min/1.73 sqM) Glucose 108 H (74-99) mg/dL Calcium 9.0 (8.4-10.2) mg/dL Magnesium 1.8 (1.6-2.3) mg/dL Total Bilirubin 0.6 (0.2-1.3) mg/dL AST 24 (14-36) U/L ALT 23 (4-34) U/L Alkaline Phosphatase 203 H (38-126) U/L Troponin I (0.000-0.034) ng/mL Total Protein 5.9 L (6.3-8.2) g/dL Albumin 3.5 (3.5-5.0) g/dL Influenza Type A (PCR) (Not Detectd) Influenza Type B (PCR) (Not Detectd) RSV (PCR) (Not Detectd) SARS-CoV-2 (PCR) (Not Detectd) 01/02/24 01/02/24 Range/Units 17:40 17:55 WBC (3.8-10.6) k/uL RBC (3.80-5.40) m/uL Hgb (11.4-16.0) gm/dL Hct (34.0-46.0) % MCV (80.0-100.0) fL MCH (25.0-35.0) pg MCHC (31.0-37.0) g/dL RDW (11.5-15.5) % Plt Count (150-450) k/uL MPV Neutrophils % % Lymphocytes % % Monocytes % % Eosinophils % % Basophils % % Neutrophils # (1.3-7.7) k/uL Lymphocytes # (1.0-4.8) k/uL Monocytes # (0-1.0) k/uL Eosinophils # (0-0.7) k/uL Basophils # (0-0.2) k/uL PT (10.0-12.5) sec INR (<1.2) APTT (22.0-30.0) sec Sodium (137-145) mmol/L Potassium (3.5-5.1) mmol/L Chloride (98-107) mmol/L Carbon Dioxide (22-30) mmol/L Anion Gap mmol/L BUN (7-17) mg/dL Creatinine (0.52-1.04) mg/dL Est GFR (CKD-EPI)AfAm (>60 ml/min/1.73 sqM) Est GFR (CKD-EPI)NonAf (>60 ml/min/1.73 sqM) Glucose (74-99) mg/dL Calcium (8.4-10.2) mg/dL Magnesium (1.6-2.3) mg/dL Total Bilirubin (0.2-1.3) mg/dL AST (14-36) U/L ALT (4-34) U/L Alkaline Phosphatase (38-126) U/L Troponin I <0.012 (0.000-0.034) ng/mL Total Protein (6.3-8.2) g/dL Albumin (3.5-5.0) g/dL Influenza Type A (PCR) Not Detected (Not Detectd) Influenza Type B (PCR) Not Detected (Not Detectd) RSV (PCR) Not Detected (Not Detectd) SARS-CoV-2 (PCR) Not Detected (Not Detectd) Disposition Clinical Impression: Chronic pain, Chest pain Disposition: HOME SELF-CARE Condition: Fair Instructions (If sedation given, give patient instructions): Chest Pain (ED) Is patient prescribed a controlled substance at d/c from ED?: No Referrals: José Reece MD [Primary Care Provider] - 1-2 days Time of Disposition: 19:05
[2024-01-02] MEDS: SODIUM CHLORIDE 0.9% 500 ML 500 ML IV ONE (17:47)
[2024-01-02] MEDS: HYDROmorphone 0.5 MG/0.5 ML SYRINGE IVP STA (17:48)
[2024-01-02] MEDS: ACETAMINOPHEN TAB 500 MG TAB PO STA (17:48)
[2024-01-02 17:49] LABS: Basophils % (A) 0 %; Eosinophils % (A) 0 %; HCT 43.3 % (34.0-46.0); HGB 14.3 gm/dL (11.4-16.0); Lymphocytes # (A) 1.1 k/uL (1.0-4.8); Lymphocytes % (A) 16 %; MCH 32.9 pg (25.0-35.0); MCHC 33.1 g/dL (31.0-37.0); MCV 99.5 fL (80.0-100.0); Mean Platelet Volume 8.3; Monocytes # (A) 0.3 k/uL (0-1.0); Monocytes % (A) 5 %; Neutrophils # (A) 5.6 k/uL (1.3-7.7); Neutrophils % (A) 77 %; Platelet Count 302 k/uL (150-450); RBC 4.35 m/uL (3.80-5.40); RDW 13.7 % (11.5-15.5); WBC 7.3 k/uL (3.8-10.6)
[2024-01-02 17:54] VITALS: TEMP 98.3
[2024-01-02 17:58] LABS: ALT 23 U/L (4-34); AST 24 U/L (14-36); African American GFR (CKD) 89 (>60 ml/min/1.73 sqM); Albumin 3.5 g/dL (3.5-5.0); Alkaline Phosphatase 203 U/L (38-126); Anion Gap 3 mmol/L; Blood Urea Nitrogen 6 mg/dL (7-17); Carbon Dioxide 29 mmol/L (22-30); Chloride 104 mmol/L (98-107); Glucose 108 mg/dL (74-99); Magnesium 1.8 mg/dL (1.6-2.3); Non-African American GFR(CKD) 77 (>60 ml/min/1.73 sqM); Potassium 3.4 mmol/L (3.5-5.1); Sodium 136 mmol/L (137-145); Total Bilirubin 0.6 mg/dL (0.2-1.3); Total Protein 5.9 g/dL (6.3-8.2)
[2024-01-02 18:00] LABS: Partial Thromboplastin Time 25.9 sec (22.0-30.0); Prothrombin Time 11.3 sec (10.0-12.5)
--- NOTE | 2024-01-02 18:30 | XR ---
EXAMINATION TYPE: XR chest 2V DATE OF EXAM: 01/02/2024 6:02 PM CLINICAL INDICATION: Female, 53 years old with history of Chest Pain; [facility] COMPARISON: Chest radiographs from 12/21/2023 TECHNIQUE: XR chest 2V Frontal view of the chest. FINDINGS: Lungs/Pleura: There is no evidence of pleural effusion, focal consolidation, or pneumothorax. Pulmonary vascularity: Unremarkable. Heart/mediastinum: Cardiomediastinal silhouette is unremarkable. Musculoskeletal: No acute osseous pathology. [id number]-W[place]va with tip terminating in the superior cavoatrial junction. IMPRESSION: No acute cardiopulmonary disease/process. [facility], , 01/02/2024 6:28 PM
[2024-01-02 19:35] VITALS: BP 116/96; PULSE 91; RESP 18
[2024-01-02] MEDS: ONDANSETRON 4 MG/2 ML VIAL IVP STA (19:35)
== END 2024-01-02 19:36 | disposition home or self-care (01) ==
LOC: EC 16:26
DX: R07.89 Other chest pain (principal); G89.29 Other chronic pain; Z88.1 Allergy status to other antibiotic agents; Z88.2 Allergy status to sulfonamides; Z88.5 Allergy status to narcotic agent; Z88.6 Allergy status to analgesic agent; Z88.7 Allergy status to serum and vaccine; Z88.8 Allergy status to other drugs, medicaments and biological substances; Z87.891 Personal history of nicotine dependence
CPT/HCPCS: 36415; 71046; 80053; 83735; 84484; 85025; 85610; 85730; 87636; 93005; 96374; 99285

== ENCOUNTER 2024-01-10 16:06 | Observation (INO) | payer OTHER ==
--- NOTE | 2024-01-10 16:24 | ED ---
Arrhythmia/Palpitations HPI - General Chief Complaint: Arrhythmia/Palpitations Stated Complaint: SOB Time Seen by Provider: 01/10/24 16:07 Source: patient, RN notes reviewed, old records reviewed Mode of arrival: wheelchair Limitations: no limitations - History of Present Illness Initial Comments: This is a 53-year-old female to the ER for evaluation today. Patient presents today for evaluation of severely elevated heart rate SVT weakness lightheaded ness dizzy feels like she may pass out. Patient is very weak here in the emergency department. Near syncopal and has had an elevated heart rate going on for a week now MD Complaint: rapid heart beat, "heart racing" -: hour(s) Arrhythmia History: atrial fibrillation, SVT Associated Symptoms: chest pain, shortness of breath, near-syncope Treatments Prior to Arrival: other (0) - Related Data Home Medications Medication Instructions Recorded Confirmed Omeprazole [PriLOSEC] 20 mg PO HS 12/15/20 01/10/24 Thiamine [Vitamin B-1] 100 mg PO HS 01/04/21 01/10/24 Atorvastatin [Lipitor] 40 mg PO HS 07/20/21 01/10/24 DULoxetine HCL [Cymbalta] 60 mg PO HS 07/20/21 01/10/24 Atogepant [Qulipta] 60 mg PO HS 06/03/22 01/10/24 Cyclobenzaprine [Flexeril] 10 mg PO TID PRN 06/03/22 01/10/24 HYDROcodone/APAP 10-325MG [[place] 1 tab PO TID 06/03/22 01/10/24 10-325] Aspirin 81 mg PO HS 08/29/22 01/10/24 Cyanocobalamin (Vitamin B-12) 1,000 mcg PO BID 09/07/23 01/10/24 [Vitamin B-12] Multivitamins, Thera [Multivitamin 1 tab PO HS 09/07/23 01/10/24 (formulary)] Zavegepant HCl [Zavzpret] 1 spray NASAL DAILY PRN 09/07/23 01/10/24 Potassium Chloride ER [K-Dur 10] 10 meq PO BID 12/10/23 01/10/24 QUEtiapine FUMARATE [SEROquel] 300 mg PO HS 01/10/24 01/10/24 Allergies Allergy/AdvReac Type Severity Reaction Status Date / Time dihydroergotamine Allergy Unknown Unknown Verified 01/10/24 18:23 [From Migranal] buprenorphine Allergy Rash/Hives Verified 01/10/24 18:23 gabapentin [From Neurontin] Allergy Itching/Swe Verified 01/10/24 18:23 lling latex Allergy Anaphylaxis Verified 01/10/24 18:23 naproxen [From Naprosyn] Allergy Anaphylaxis Verified 01/10/24 18:23 Penicillins Allergy Anaphylaxis Verified 01/10/24 18:23 prednisone Allergy Swelling Verified 01/10/24 18:23 quetiapine fumarate Allergy Itching, Verified 01/10/24 18:23 [From Seroquel] leg cramps rofecoxib [From Vioxx] Allergy Itching, Verified 01/10/24 18:23 leg cramps terfenadine [From Seldane] Allergy Rash/Hives Verified 01/10/24 18:23 vancomycin Allergy Rash/Hives/Swelling Verified 01/10/24 18:23 @IV site calcium carbonate [From DHEA] AdvReac Chest Pain Verified 01/10/24 18:23 calcium phosphate,dibasic AdvReac Chest Pain Verified 01/10/24 18:23 [From DHEA] clindamycin AdvReac muscle Verified 01/10/24 18:23 cramps clonidine AdvReac fast Verified 01/10/24 18:23 heartbeat, migraine dextromethorphan HBr AdvReac face/neck Verified 01/10/24 18:23 [From NyQuil] flushing diazepam [From Valium] AdvReac Nausea & Verified 01/10/24 18:23 Vomiting divalproex sodium AdvReac Nausea & Verified 01/10/24 18:23 [From Depakote] Vomiting doxylamine [From NyQuil] AdvReac face "beet Verified 01/10/24 18:23 red", elevated temp. ibuprofen [From Motrin] AdvReac abdominal Verified 01/10/24 18:23 & muscle cramps indomethacin [From Indocin] AdvReac Abdominal Verified 01/10/24 18:23 Pain,N/V ketorolac tromethamine AdvReac "built up Verified 01/10/24 18:23 [From Toradol] in system", had to be given something to reverse lorazepam [From Ativan] AdvReac Nausea & Verified 01/10/24 18:23 Vomiting memantine [From Namenda] AdvReac Itching Verified 01/10/24 18:23 metoclopramide HCl AdvReac muscle Verified 01/10/24 18:23 [From Reglan] cramps nortriptyline [From Pamelor] AdvReac Chest Pain Verified 01/10/24 18:23 prasterone (DHEA) [From DHEA] AdvReac Chest Pain Verified 01/10/24 18:23 prochlorperazine AdvReac leg Verified 01/10/24 18:23 [From Compazine] cramping propranolol AdvReac Chest Pain Verified 01/10/24 18:23 pseudoephedrine HCl AdvReac face "beet Verified 01/10/24 18:23 [From NyQuil] red", elevated temp. quetiapine [From Seroquel] AdvReac leg Verified 01/10/24 18:23 cramping sumatriptan [From Imitrex] AdvReac migrane Verified 01/10/24 18:23 sumatriptan succinate AdvReac migrane Verified 01/10/24 18:23 [From Imitrex] topiramate [From Topamax] AdvReac "built up Verified 01/10/24 18:23 in system", had to be given something to reverse tramadol AdvReac Nausea & Verified 01/10/24 18:23 Vomiting/LEG CRAMPS/HEART FLUTTERS trazodone AdvReac "built up Verified 01/10/24 18:23 in system", had to be given something to reverse zolpidem tartrate AdvReac "Became Verified 01/10/24 18:23 [From Ambien] violent with no memory" zonisamide [From Zonegran] AdvReac inability Verified 01/10/24 18:23 to eat artificial sweetener AdvReac SEVERE Uncoded 01/10/24 16:12 MIGRAINE HEADACHE prosyn AdvReac Itching Uncoded 01/10/24 16:12 Review of Systems ROS Statement: Those systems with pertinent positive or pertinent negative responses have been documented in the HPI. ROS Other: All systems not noted in ROS Statement are negative. Past Medical History Past Medical History: Hyperlipidemia, Hypertension, Seizure Disorder Additional Past Medical History / Comment(s): Migraines, viral meningitis x3 as a child, 1995, 2000, chronic back pain, nerve blocks (neck and occipital nerve) 08/2016 and 12/2016. Last seizure 10/10/2020, "ABSENT SEIZURES. HX TACHYCARDIA, GBS, Complex PTSD. gillean barre History of Any Multi-Drug Resistant Organisms: None Reported Past Surgical History: Appendectomy, Section, Cholecystectomy, Heart Catheterization, Heart Catheterization With Stent, Hernia Repair, Hysterectomy, Orthopedic Surgery, Tonsillectomy, Tubal Ligation Additional Past Surgical History / Comment(s): Hiatal Hernia, umbilical hernia repair, left rotator cuff repair, bilateral knee scopes, pain clinic procedures- occipital nerve block. abd exploratory sx(endometreosis), 3 abd scopes 1981, 1989, 1991), lumbar puncture. EGD. nerve biopsy, salvalry gland biospy, Port (Right side 2018, left side 2020), Esophogeal dilation Past Anesthesia/Blood Transfusion Reactions: No Reported Reaction Additional Past Anesthesia/Blood Transfusion Reaction / Comment(s): Claustrophobic Date of Last Stent Placement:: 06/03/2022 Past Psychological History: Anxiety, Bipolar, Panic Disorder, PTSD Smoking Status: Former smoker Past Alcohol Use History: None Reported Past Drug Use History: None Reported - Past Family History Mother Family Medical History: Cancer, Dementia, Diabetes Mellitus, GERD/Reflux, Hyperlipidemia, Hypertension, Thyroid Disorder, Vascular Disorder Additional Family Medical History / Comment(s): CABG x2, stents Father History Unknown: Yes Family Medical History: No Reported History General Exam General appearance: alert, in no apparent distress, anxious Head exam: Present: atraumatic, normocephalic, normal inspection Eye exam: Present: normal appearance, PERRL, EOMI. Absent: scleral icterus, conjunctival injection, periorbital swelling ENT exam: Present: normal exam, mucous membranes moist Neck exam: Present: normal inspection. Absent: tenderness, meningismus, lymphadenopathy Respiratory exam: Present: normal lung sounds bilaterally. Absent: respiratory distress, wheezes, rales, rhonchi, stridor Cardiovascular Exam: Present: normal rhythm, tachycardia, normal heart sounds. Absent: systolic murmur, diastolic murmur, rubs, gallop, clicks GI/Abdominal exam: Present: soft, normal bowel sounds. Absent: distended, tenderness, guarding, rebound, rigid Extremities exam: Present: normal inspection, full ROM, normal capillary refill. Absent: tenderness, pedal edema, joint swelling, calf tenderness Back exam: Present: normal inspection Neurological exam: Present: alert, oriented X3, CN II-XII intact Psychiatric exam: Present: normal affect, normal mood Skin exam: Present: warm, dry, intact, normal color. Absent: rash Course Vital Signs 01/10/24 01/10/24 01/10/24 16:08 16:31 17:56 Temperature 97.9 F Pulse Rate 126 H 104 H 93 Respiratory 26 H 23 16 Rate Blood Pressure 81/44 155/97 125/84 O2 Sat by Pulse 100 95 97 Oximetry 01/10/24 20:20 Temperature Pulse Rate 96 Respiratory 22 Rate Blood Pressure 144/99 O2 Sat by Pulse 98 Oximetry - Reevaluation(s) Reevaluation #1: 01/10/24 16:22 Medical records reviewed Reevaluation #2: 01/10/24 16:22 Patient symptoms unchanged Reevaluation #3: Patient informed of results and questions answered Reevaluation #4: Was pt. sent in by a medical professional or institution (, PA, GRAPPLER, urgent care, hospital, or snf...) When possible be specific @ -no Did you speak to anyone other than the patient for history (EMS, parent, family, police, friend...)? What history was obtained from this source @ -no Did you review nursing and triage notes (agree or disagree)? Why? @ -agree Are old charts reviewed (outside hosp., previous admission, EMS record, old EKG, old radiological studies, urgent care reports/EKG's, snf records)? Report findings @ -yes Differential Diagnosis (chest pain, altered mental status, abdominal pain women, abdominal pain men, vaginal bleeding, weakness, fever, dyspnea, syncope, headache, dizziness, GI bleed, back pain, seizure, CVA, palpatations, mental health, musculoskeletal)? @ -prior EKG interpreted by me (3pts min.). @ -yes X-rays interpreted by me (1pt min.). @ -yes negative for acute disease CT interpreted by me (1pt min.). @ -no U/S interpreted by me (1pt. min.). @ -no What testing was considered but not performed or refused? (CT, X-rays, U/S, labs)? Why? @ -none What meds were considered but not given or refused? Why? @ -none Did you discuss the management of the patient with other professionals (professionals i.e. , PA, GRAPPLER, lab, RT, psych nurse, child welfare social worker, meteorology teacher, teacher, air defense artillery officer, rn case manager hospice)? Give summary @ -no Was smoking cessation discussed for >3mins.? @ -no Was critical care preformed (if so, how long)? @ -yes31 Were there social determinants of health that impacted care today? How? (Homelessness, low income, unemployed, alcoholism, drug addiction, transportation, low edu. Level, literacy, decrease access to med. care, alf, rehab)? @ -none Was there de-escalation of care discussed even if they declined (Discuss DNR or withdrawal of care, Hospice)? DNR status @ -no What co-morbidities impacted this encounter? (DM, HTN, Smoking, COPD, CAD, Cancer, CVA, ARF, Chemo, Hep., AIDS, mental health diagnosis, sleep apnea, morbid obesity)? @ -none Was patient admitted / discharged? Hospital course, mention meds given and route, prescriptions, significant lab abnormalities, going to OR and other pertinent info. @ - 53 female to be admitted with SVT near syncope Admitted Undiagnosed new problem with uncertain prognosis? @ -no Drug Therapy requiring intensive monitoring for toxicity (Heparin, Nitro, Insulin, Cardizem)? @ -no Were any procedures done? @ -no Diagnosis/symptom? @ -arrhythmia NSVT syncope Acute, or Chronic, or Acute on Chronic? @ -Acute Uncomplicated (without systemic symptoms) or Complicated (systemic symptoms)? @ -Complicated Side effects of treatment? @ -no Exacerbation, Progression, or Severe Exacerbation? @ -exacerbation Poses a threat to life or bodily function? How? (Chest pain, [place], [place], pneumonia, PE, COPD, DKA, ARF, appy, cholecystitis, CVA, Diverticulitis, Homicidal, Suicidal, threat to staff... and all critical care pts) @ -yes arrhythmia Reevaluation #5: Differential Palpitations Ventricular arrhythmias, atrial arrhythmias, myocardial infarction, anemia, th yrotoxicosis, electrolyte imbalance, hypokalemia, pulmonary embolism, pulmonary disease, drugs, alcohol, anxiety, stress.... This is not meant to be an all-inclusive list. - Consultations Consultation #1: Spoke with [facility] who agrees to admit the patient EKG Findings - EKG Comments: EKG Findings:: EKG is sinus 108 MA 135 QRS 72 QTc 399 - EKG Results: EKG: interpreted by AMANDA Medical Decision Making - Medical Decision Making 53 female to be admitted with SVT near syncope - Lab Data Result diagrams: 01/11/24 03:51 01/11/24 03:51 Lab Results 01/10/24 01/10/24 01/10/24 Range/Units 17:13 17:13 17:13 WBC 8.2 (3.8-10.6) k/uL RBC 3.83 (3.80-5.40) m/uL Hgb 12.9 (11.4-16.0) gm/dL Hct 37.2 (34.0-46.0) % MCV 97.1 (80.0-100.0) fL MCH 33.6 (25.0-35.0) pg MCHC 34.6 (31.0-37.0) g/dL RDW 14.2 (11.5-15.5) % Plt Count 277 (150-450) k/uL MPV 8.8 Neutrophils % 73 % Lymphocytes % 19 % Monocytes % 5 % Eosinophils % 1 % Basophils % 0 % Neutrophils # 6.0 (1.3-7.7) k/uL Lymphocytes # 1.5 (1.0-4.8) k/uL Monocytes # 0.4 (0-1.0) k/uL Eosinophils # 0.1 (0-0.7) k/uL Basophils # 0.0 (0-0.2) k/uL PT 11.3 (10.0-12.5) sec INR 1.0 (<1.2) APTT 42.2 H (22.0-30.0) sec Sodium 138 (137-145) mmol/L Potassium 3.5 (3.5-5.1) mmol/L Chloride 105 (98-107) mmol/L Carbon Dioxide 27 (22-30) mmol/L Anion Gap 6 mmol/L BUN 8 (7-17) mg/dL Creatinine 0.84 (0.52-1.04) mg/dL Est GFR (CKD-EPI)AfAm >90 (>60 ml/min/1.73 sqM) Est GFR (CKD-EPI)NonAf 81 (>60 ml/min/1.73 sqM) Glucose 94 (74-99) mg/dL Plasma Lactic Acid Ed (0.7-2.0) mmol/L Calcium 8.4 (8.4-10.2) mg/dL Phosphorus 2.1 L (2.5-4.5) mg/dL Magnesium 1.9 (1.6-2.3) mg/dL Total Bilirubin 0.4 (0.2-1.3) mg/dL AST 42 H (14-36) U/L ALT 22 (4-34) U/L Alkaline Phosphatase 126 (38-126) U/L Troponin I (0.000-0.034) ng/mL NT-Pro-B Natriuret Pep 171 pg/mL Total Protein 5.5 L (6.3-8.2) g/dL Albumin 3.0 L (3.5-5.0) g/dL TSH 0.754 (0.465-4.680) mIU/L 01/10/24 01/10/24 Range/Units 17:13 17:13 WBC (3.8-10.6) k/uL RBC (3.80-5.40) m/uL Hgb (11.4-16.0) gm/dL Hct (34.0-46.0) % MCV (80.0-100.0) fL MCH (25.0-35.0) pg MCHC (31.0-37.0) g/dL RDW (11.5-15.5) % Plt Count (150-450) k/uL MPV Neutrophils % % Lymphocytes % % Monocytes % % Eosinophils % % Basophils % % Neutrophils # (1.3-7.7) k/uL Lymphocytes # (1.0-4.8) k/uL Monocytes # (0-1.0) k/uL Eosinophils # (0-0.7) k/uL Basophils # (0-0.2) k/uL PT (10.0-12.5) sec INR (<1.2) APTT (22.0-30.0) sec Sodium (137-145) mmol/L Potassium (3.5-5.1) mmol/L Chloride (98-107) mmol/L Carbon Dioxide (22-30) mmol/L Anion Gap mmol/L BUN (7-17) mg/dL Creatinine (0.52-1.04) mg/dL Est GFR (CKD-EPI)AfAm (>60 ml/min/1.73 sqM) Est GFR (CKD-EPI)NonAf (>60 ml/min/1.73 sqM) Glucose (74-99) mg/dL Plasma Lactic Acid Ed 1.6 (0.7-2.0) mmol/L Calcium (8.4-10.2) mg/dL Phosphorus (2.5-4.5) mg/dL Magnesium (1.6-2.3) mg/dL Total Bilirubin (0.2-1.3) mg/dL AST (14-36) U/L ALT (4-34) U/L Alkaline Phosphatase (38-126) U/L Troponin I <0.012 (0.000-0.034) ng/mL NT-Pro-B Natriuret Pep pg/mL Total Protein (6.3-8.2) g/dL Albumin (3.5-5.0) g/dL TSH (0.465-4.680) mIU/L - EKG Data -: EKG Interpreted by Me - Radiology Data Radiology results: report reviewed (X-rays negative for acute disease), image reviewed Critical Care Time Critical Care Time: Yes Total Critical Care Time: 31 Disposition Clinical Impression: Palpitations, Atypical chest pain, Syncope, Syncope and collapse, SVT (supraventricular tachycardia) Disposition: ADMITTED IP TO THIS [facility] Condition: Fair Time of Disposition: 19:05
[2024-01-10] MEDS: SODIUM CHLORIDE 0.9% 1,000 ML IV STA ×2 (17:26)
[2024-01-10 17:35] LABS: Basophils % (A) 0 %; Eosinophils # (A) 0.1 k/uL (0-0.7); Eosinophils % (A) 1 %; HCT 37.2 % (34.0-46.0); HGB 12.9 gm/dL (11.4-16.0); Lymphocytes # (A) 1.5 k/uL (1.0-4.8); Lymphocytes % (A) 19 %; MCH 33.6 pg (25.0-35.0); MCHC 34.6 g/dL (31.0-37.0); MCV 97.1 fL (80.0-100.0); Mean Platelet Volume 8.8; Monocytes # (A) 0.4 k/uL (0-1.0); Monocytes % (A) 5 %; Neutrophils % (A) 73 %; Platelet Count 277 k/uL (150-450); RBC 3.83 m/uL (3.80-5.40); RDW 14.2 % (11.5-15.5); WBC 8.2 k/uL (3.8-10.6)
[2024-01-10 17:46] LABS: ALT 22 U/L (4-34); AST 42 U/L (14-36); African American GFR (CKD) >90 (>60 ml/min/1.73 sqM); Alkaline Phosphatase 126 U/L (38-126); Anion Gap 6 mmol/L; Blood Urea Nitrogen 8 mg/dL (7-17); Calcium 8.4 mg/dL (8.4-10.2); Carbon Dioxide 27 mmol/L (22-30); Chloride 105 mmol/L (98-107); Glucose 94 mg/dL (74-99); Magnesium 1.9 mg/dL (1.6-2.3); Non-African American GFR(CKD) 81 (>60 ml/min/1.73 sqM); Phosphorus 2.1 mg/dL (2.5-4.5); Potassium 3.5 mmol/L (3.5-5.1); Sodium 138 mmol/L (137-145); Total Bilirubin 0.4 mg/dL (0.2-1.3); Total Protein 5.5 g/dL (6.3-8.2)
--- NOTE | 2024-01-10 17:46 | XR ---
EXAMINATION TYPE: XR chest 2V DATE OF EXAM: 01/10/2024 5:40 PM CLINICAL INDICATION: Female, 53 years old with history of Weakness; [facility] COMPARISON: Chest radiographs from 01/02/2024. TECHNIQUE: XR chest 2V Frontal view of the chest. FINDINGS: Lungs/Pleura: There is no evidence of pleural effusion, focal consolidation, or pneumothorax. Pulmonary vascularity: Unremarkable. Heart/mediastinum: Cardiomediastinal silhouette is unremarkable. Musculoskeletal: No acute osseous pathology. Other findings: None Lines/Tubes: Left internal jugular central venous catheter with distal tip at the cavoatrial junction. IMPRESSION: No acute cardiopulmonary disease/process. [facility], , 01/10/2024 5:43 PM
[2024-01-10] MEDS: ONDANSETRON 4 MG/2 ML VIAL IVP STA (17:49)
[2024-01-10] MEDS: diphenhydrAMINE 50 MG/ML 1 ML VIAL IVP STA (17:51)
[2024-01-10 17:52] LABS: Partial Thromboplastin Time 42.2 sec (22.0-30.0); Prothrombin Time 11.3 sec (10.0-12.5)
[2024-01-10] MEDS: HYDROmorphone 1 MG/ML 1 ML SYRINGE IVP STA (17:53)
[2024-01-10 17:55] LABS: NT-Pro-B-Type Natriuretic Pept 171 pg/mL
[2024-01-10] MEDS ORDERED: NALOXONE 0.4 MG/ML 1 ML VIAL IV PRN (19:07)
[2024-01-10] MEDS: SODIUM CHLORIDE 0.9% 1,000 ML IV SCH (19:57)
[2024-01-10] MEDS: HYDROmorphone 1 MG/ML 1 ML SYRINGE IVP PRN (20:11)
[2024-01-10] MEDS: ATORVASTATIN 40 MG TAB PO SCH (22:03)
[2024-01-10] MEDS: QUEtiapine 100 MG TAB PO SCH (22:03)
[2024-01-10] MEDS: DULoxetine HCL 60 MG CAPSULE.DR PO SCH (22:03)
[2024-01-11] MEDS: HYDROcodone/APAP 10-325MG 1 EACH TAB PO PRN (00:59)
[2024-01-11] MEDS: ONDANSETRON 4 MG/2 ML VIAL IVP PRN (03:41)
[2024-01-11] MEDS: PANTOPRAZOLE 40 MG TABLET PO SCH (06:21)
[2024-01-11] MEDS: PANTOPRAZOLE 40 MG/10 ML VIAL IV SCH (07:52)
[2024-01-11 09:17] LABS: Basophils # (A) 0.03 X 10*3/uL (0.00-0.10); Basophils % (A) 0.5 %; Eosinophils # (A) 0.07 X 10*3/uL (0.04-0.35); Eosinophils % (A) 1.2 %; HCT 35.7 % (37.2-46.3); HGB 11.8 g/dL (12.0-15.0); Lymphocytes # (A) 1.61 X 10*3/uL (0.90-5.00); Lymphocytes % (A) 26.9 %; MCH 33.3 pg (27.0-32.0); MCHC 33.1 g/dL (32.0-37.0); MCV 100.8 FL (80.0-97.0); Mean Platelet Volume 11.3 FL (9.5-12.2); Monocytes # (A) 0.39 X 10*3/uL (0.20-1.00); Monocytes % (A) 6.5 %; NRBC Per 100 WBC 0 X 10*3/uL (0.00-0.01); Neutrophils # (A) 3.87 X 10*3/uL (1.80-7.70); Neutrophils % (A) 64.6 %; Platelet Count 253 X 10*3/uL (140-440); RBC 3.54 X 10*6/uL (4.10-5.20); RDW 14.6 % (11.5-14.5); WBC 5.99 X 10*3/uL (4.50-10.00)
[2024-01-11] MEDS ORDERED: AMINOPHYLLINE 500 MG/20 ML VIAL IV PRN (09:30)
[2024-01-11] MEDS ORDERED: CAFFEINE CITRATE 60 MG/3 ML VIAL IV PRN (09:30)
[2024-01-11] MEDS ORDERED: REGADENOSON 0.4 MG/5 ML SYRINGE IV PRN (09:30)
[2024-01-11 10:22] LABS: ALT 24 U/L (8-44); AST 33 U/L (13-35); Albumin 3.2 g/dL (3.8-4.9); Albumin/Globulin Ratio 1.78 Ratio (1.60-3.17); Alkaline Phosphatase 135 U/L (41-126); BUN/Creat Ratio 6.89 Ratio (12.00-20.00); Blood Urea Nitrogen 6.2 mg/dL (9.0-27.0); Calcium 7.8 mg/dL (8.7-10.3); Carbon Dioxide 24.5 mmol/L (21.6-31.8); Chloride 108 mmol/L (96-109); Globulin 1.8 g/dL (1.6-3.3); Glucose 103 mg/dL (70-110); Magnesium 1.9 mg/dL (1.5-2.4); Phosphorus 4.6 mg/dL (2.4-5.1); Sodium 141 mmol/L (135-145); Total Bilirubin <0.2 mg/dL (0.3-1.2)
[2024-01-11] MEDS: MAG HYDROX/AL HYDROX/SIMETH 30 ML, HYOSCYAMINE ELIXIR 10 ML, LIDOCAINE VISCOUS 2% 10 ML PO ONE (10:41)
--- NOTE | 2024-01-11 11:47 | P.CRDCN ---
History of Present Illness Consult date: 01/11/24 Reason for Consult (text): SVT History of present illness: This is a 53-year-old female patient of Dr. Corrales with past medical history of coronary artery disease status post stenting to the mid LAD, seizure disorder, migraine headaches, generalized anxiety disorder, bipolar disorder, PTSD, Piketon Cárdenas syndrome. We have been asked to evaluate the patient for SVT. Patient presented to the emergency center due to chest pain that cause a squeezing sensation around her chest along with a migraine headache and feeling that her heartbeat was coming out of her chest. Patient also had nausea without vomiting, fever, sweats and chills. She states she tried Pepto-Bismol and Phenergan suppository at home that did not seem to help. The chest pain does not seem to be related to activity. Only new medication change was Seroquel was added 1 month ago. Blood pressure 130/87, heart rate 97, telemetry is a sinus rhythm currently at 99 bpm post was up to 138 bpm max. In the emergency center, patient received Dilaudid, Benadryl and Zofran. Zofran seem to help her nausea. Patient has no tenderness on her chest wall but it is uncomfortable to take a deep breath. The pain that she is experiences is not similar to that the require stent placement. Patient has a port in the left anterior chest wall for treatment of Jayna Cárdenas. Patient also gives history that she was at [facility] last week and was seen by Dr. Bustillos and told her that she had SVT. Upon review of telemetry, it does not appear the patient has had SVT here. EKG: Sinus tachycardia at 108 bpm Chest x-ray: No acute process Laboratory studies: WBC 5.9, hemoglobin 11.8, platelet count 253, D-dimer 0.29. Electrolytes are normal. BUN 6.2 and creatinine 0.9. Troponin negative x 3. C-reactive protein less than 0.5. TSH normal at 0.754. proBNP 171. Magnesium 1.9. Home cardiac medications: Aspirin 81 mg daily, Lipitor 40 mg daily, potassium 10 mill equivalents twice daily. Lexiscan Cardiolite stress test performed 10/24/2022 revealed no evidence of reversible ischemia. Cardiac catheterization history May 2022 with stenting of the LAD Tilt table test August 2022 did not reveal evidence of neurocardiogenic syncope dysautonomia Echocardiogram performed August 2022 revealed EF 55 to 60%, LVH, mild pulmonary hypertension, trace mitral regurgitation, trace to mild tricuspid regurgitation and trace pulmonic regurgitation Review Of Systems: At the time of my exam: CONSTITUTIONAL: Denies fever or chills. Reports headache HEENT: Denies blurred vision, vision changes, or eye pain. Denies hemoptysis CARDIOVASCULAR: Reports chest pain. Denies orthopnea. Denies PND. Denies palpitations RESPIRATORY: Denies shortness of breath. GASTROINTESTINAL: Denies abdominal pain. Reports nausea without vomiting. HEMATOLOGIC: Denies bleeding disorders. GENITOURINARY: Denies any blood in urine. SKIN: Denies puritis. Denies rash. Physical examination: Gen: This is a 53-year-old female appears to be quite uncomfortable due to headache and nausea VS: reviewed HEENT: Head is atraumatic, normocephalic. Pupils equal, round. Sclerae is anicteric. NECK: Supple. No JVD. LUNGS: Clear to auscultation. No wheezes or rhonchi. No intercostal retractions. HEART: Regular rate and rhythm. No murmur. ABDOMEN: Soft No tenderness. EXTREMITIES: No pedal edema. No calf tenderness. NEUROLOGICAL: Patient is awake, alert and oriented x3. Assessment: Sinus tachycardia Atypical chest pain, acute coronary syndrome ruled out Migraine headache with nausea, fever, sweats and chills History of coronary artery disease status post PCI of the mid LAD 05/2022 Hyperlipidemia Recurrent syncope Seizure disorder Piketon Cárdenas syndrome Bipolar disorder PTSD Plan: Resume patient's home cardiac medications GI cocktail x 1 ordered Obtain D-dimer, sed rate and CRP Schedule patient for Lexiscan Cardiolite stress test tomorrow Obtain 2-D echocardiogram and Doppler study to assess cardiac structure and function Further recommendations to follow based upon clinical course Thank you kindly for this consultation. Nurse practitioner note has been reviewed, I agree with documented findings and plan of care. Patient was seen and examined. Past Medical History Past Medical History: Hyperlipidemia, Hypertension, Seizure Disorder Additional Past Medical History / Comment(s): Migraines, viral meningitis x3 as a child, 1995, 2000, chronic back pain, nerve blocks (neck and occipital nerve) 08/2016 and 12/2016. Last seizure 10/10/2020, "ABSENT SEIZURES. HX TACHYCARDIA, Complex PTSD. gillean barre History of Any Multi-Drug Resistant Organisms: None Reported Past Surgical History: Appendectomy, Section, Cholecystectomy, Heart Catheterization, Heart Catheterization With Stent, Hernia Repair, Hysterectomy, Orthopedic Surgery, Tonsillectomy, Tubal Ligation Additional Past Surgical History / Comment(s): Hiatal Hernia, umbilical hernia repair, left rotator cuff repair, bilateral knee scopes, pain clinic procedures-occipital nerve block. abd exploratory sx(endometreosis), 3 abd scopes 1981, 1989, 1991), lumbar puncture. EGD. nerve biopsy, salvalry gland biospy, Port (Right side 2018, left side 2020), Esophogeal dilation(2023) Past Anesthesia/Blood Transfusion Reactions: No Reported Reaction Additional Past Anesthesia/Blood Transfusion Reaction / Comment(s): Cla ustrophobic Date of Last Stent Placement:: 06/03/2022 Past Psychological History: Anxiety, Bipolar, Panic Disorder, PTSD Additional Psychological History / Comment(s): lives at home witth Smoking Status: Former smoker Past Alcohol Use History: None Reported Additional Past Alcohol Use History / Comment(s): SMOKED [id number] Past Drug Use History: None Reported - Past Family History Mother Family Medical History: Cancer, Dementia, Diabetes Mellitus, GERD/Reflux, Hyperlipidemia, Hypertension, Thyroid Disorder, Vascular Disorder Additional Family Medical History / Comment(s): CABG x2, stents Father History Unknown: Yes Family Medical History: No Reported History Medications and Allergies Home Medications Medication Instructions Recorded Confirmed Type Omeprazole [PriLOSEC] 20 mg PO HS 12/15/20 01/10/24 History Thiamine [Vitamin B-1] 100 mg PO HS 01/04/21 01/10/24 History Atorvastatin [Lipitor] 40 mg PO HS 07/20/21 01/10/24 History DULoxetine HCL [Cymbalta] 60 mg PO HS 07/20/21 01/10/24 History Atogepant [Qulipta] 60 mg PO HS 06/03/22 01/10/24 History Cyclobenzaprine [Flexeril] 10 mg PO TID PRN 06/03/22 01/10/24 History HYDROcodone/APAP 10-325MG [[place] 1 tab PO TID 06/03/22 01/10/24 History 10-325] Aspirin 81 mg PO HS 08/29/22 01/10/24 History Cyanocobalamin (Vitamin B-12) 1,000 mcg PO BID 09/07/23 01/10/24 History [Vitamin B-12] Multivitamins, Thera [Multivitamin 1 tab PO HS 09/07/23 01/10/24 History (formulary)] Zavegepant HCl [Zavzpret] 1 spray NASAL DAILY PRN 09/07/23 01/10/24 History Potassium Chloride ER [K-Dur 10] 10 meq PO BID 12/10/23 01/10/24 History QUEtiapine FUMARATE [SEROquel] 300 mg PO HS 01/10/24 01/10/24 History Allergies Allergy/AdvReac Type Severity Reaction Status Date / Time dihydroergotamine Allergy Unknown Unknown Verified 01/10/24 18:23 [From Migranal] buprenorphine Allergy Rash/Hives Verified 01/10/24 18:23 gabapentin [From Neurontin] Allergy Itching/Swe Verified 01/10/24 18:23 lling latex Allergy Anaphylaxis Verified 01/10/24 18:23 naproxen [From Naprosyn] Allergy Anaphylaxis Verified 01/10/24 18:23 Penicillins Allergy Anaphylaxis Verified 01/10/24 18:23 prednisone Allergy Swelling Verified 01/10/24 18:23 quetiapine fumarate Allergy Itching, Verified 01/10/24 18:23 [From Seroquel] leg cramps rofecoxib [From Vioxx] Allergy Itching, Verified 01/10/24 18:23 leg cramps terfenadine [From Seldane] Allergy Rash/Hives Verified 01/10/24 18:23 vancomycin Allergy Rash/Hives/Swelling Verified 01/10/24 18:23 @IV site calcium carbonate [From DHEA] AdvReac Chest Pain Verified 01/10/24 18:23 calcium phosphate,dibasic AdvReac Chest Pain Verified 01/10/24 18:23 [From DHEA] clindamycin AdvReac muscle Verified 01/10/24 18:23 cramps clonidine AdvReac fast Verified 01/10/24 18:23 heartbeat, migraine dextromethorphan HBr AdvReac face/neck Verified 01/10/24 18:23 [From NyQuil] flushing diazepam [From Valium] AdvReac Nausea & Verified 01/10/24 18:23 Vomiting divalproex sodium AdvReac Nausea & Verified 01/10/24 18:23 [From Depakote] Vomiting doxylamine [From NyQuil] AdvReac face "beet Verified 01/10/24 18:23 red", elevated temp. ibuprofen [From Motrin] AdvReac abdominal Verified 01/10/24 18:23 & muscle cramps indomethacin [From Indocin] AdvReac Abdominal Verified 01/10/24 18:23 Pain,N/V ketorolac tromethamine AdvReac "built up Verified 01/10/24 18:23 [From Toradol] in system", had to be given something to reverse lorazepam [From Ativan] AdvReac Nausea & Verified 01/10/24 18:23 Vomiting memantine [From Namenda] AdvReac Itching Verified 01/10/24 18:23 metoclopramide HCl AdvReac muscle Verified 01/10/24 18:23 [From Reglan] cramps nortriptyline [From Pamelor] AdvReac Chest Pain Verified 01/10/24 18:23 prasterone (DHEA) [From DHEA] AdvReac Chest Pain Verified 01/10/24 18:23 prochlorperazine AdvReac leg Verified 01/10/24 18:23 [From Compazine] cramping propranolol AdvReac Chest Pain Verified 01/10/24 18:23 pseudoephedrine HCl AdvReac face "beet Verified 01/10/24 18:23 [From NyQuil] red", elevated temp. quetiapine [From Seroquel] AdvReac leg Verified 01/10/24 18:23 cramping sumatriptan [From Imitrex] AdvReac migrane Verified 01/10/24 18:23 sumatriptan succinate AdvReac migrane Verified 01/10/24 18:23 [From Imitrex] topiramate [From Topamax] AdvReac "built up Verified 01/10/24 18:23 in system", had to be given something to reverse tramadol AdvReac Nausea & Verified 01/10/24 18:23 Vomiting/LEG CRAMPS/HEART FLUTTERS trazodone AdvReac "built up Verified 01/10/24 18:23 in system", had to be given something to reverse zolpidem tartrate AdvReac "Became Verified 01/10/24 18:23 [From Ambien] violent with no memory" zonisamide [From Zonegran] AdvReac inability Verified 01/10/24 18:23 to eat artificial sweetener AdvReac SEVERE Uncoded 01/10/24 16:12 MIGRAINE HEADACHE prosyn AdvReac Itching Uncoded 01/10/24 16:12 Physical Exam Vitals: Vital Signs Temp Pulse Pulse Resp BP BP Pulse Ox 01/11/24 07:00 98 F 87 16 130/87 97 01/11/24 01:02 97.4 F L 104 H 19 147/89 99 01/10/24 22:59 124 H 134/82 01/10/24 21:09 97.9 F 89 18 163/93 98 01/10/24 20:20 96 22 144/99 98 01/10/24 17:56 93 16 125/84 97 01/10/24 16:31 104 H 23 155/97 95 01/10/24 16:08 97.9 F 126 H 26 H 81/44 100 Intake and Output 01/10/24 01/11/24 01/11/24 22:59 06:59 14:59 Other: # Voids 1 # Bowel Movements 0 Weight 77.111 kg Results 01/11/24 03:51 01/11/24 03:51 Cardiac Enzymes 01/10/24 01/10/24 01/10/24 Range/Units 17:13 17:13 20:22 AST 42 H (14-36) U/L Troponin I <0.012 <0.012 (0.000-0.034) ng/mL 01/10/24 Range/Units 23:58 AST (14-36) U/L Troponin I <0.012 (0.000-0.034) ng/mL Coagulation 01/10/24 Range/Units 17:13 PT 11.3 (10.0-12.5) sec APTT 42.2 H (22.0-30.0) sec CBC 01/10/24 01/11/24 Range/Units 17:13 03:51 WBC 8.2 5.99 (3.8-10.6) k/uL RBC 3.83 3.54 L (3.80-5.40) m/uL Hgb 12.9 11.8 L (11.4-16.0) gm/dL Hct 37.2 35.7 L (34.0-46.0) % Plt Count 277 253 (150-450) k/uL Comprehensive Metabolic Panel 01/10/24 Range/Units 17:13 Sodium 138 (137-145) mmol/L Potassium 3.5 (3.5-5.1) mmol/L Chloride 105 (98-107) mmol/L Carbon Dioxide 27 (22-30) mmol/L BUN 8 (7-17) mg/dL Creatinine 0.84 (0.52-1.04) mg/dL Glucose 94 (74-99) mg/dL Calcium 8.4 (8.4-10.2) mg/dL AST 42 H (14-36) U/L ALT 22 (4-34) U/L Alkaline Phosphatase 126 (38-126) U/L Total Protein 5.5 L (6.3-8.2) g/dL Albumin 3.0 L (3.5-5.0) g/dL Current Medications Generic Name Dose Route Start Last Admin Trade Name Freq PRN Reason Stop Dose Admin Hydrocodone Bitart/Acetaminophen 1 each 01/10/24 21:39 01/11/24 07:51 Hydrocodone/Apap 10-325mg 1 Each Tab PO 1 each TID PRN Administration Pain Aspirin 81 mg 01/11/24 21:00 Aspirin 81 Mg PO HS [facility] Atorvastatin Calcium 40 mg 01/10/24 21:45 01/10/24 22:03 Atorvastatin 40 Mg Tab PO 40 mg HS PAMELA Administration Cyclobenzaprine HCl 10 mg 01/10/24 21:39 Cyclobenzaprine 10 Mg Tab PO TID PRN Pain Duloxetine HCl 60 mg 01/10/24 21:45 01/10/24 22:03 Duloxetine Hcl 60 Mg Capsule.Dr PO 60 mg HS PAMELA Administration Hydromorphone HCl 1 mg 01/10/24 19:07 01/11/24 06:25 Hydromorphone 1 Mg/Ml 1 Ml Syringe IVP 1 mg Q3HR PRN Administration Severe Pain (Scale 7 to 10) Sodium Chloride 1,000 mls @ 75 mls/hr 01/10/24 19:15 01/11/24 06:25 Saline 0.9% IV 75 mls/hr .[id number] PAMELA Administration Multivitamins 1 each 01/11/24 21:00 Multivitamins, Thera 1 Each Tab PO HS PAMELA Naloxone HCl 0.2 mg 01/10/24 19:07 Naloxone 0.4 Mg/Ml 1 Ml Vial IV Q2M PRN Opioid Reversal Non-Formulary Medication 60 mg 01/11/24 21:00 Atogepant [Qulipta] PO HS PAMELA Ondansetron HCl 4 mg 01/10/24 19:07 01/11/24 03:41 Ondansetron 4 Mg/2 Ml Vial IVP 4 mg Q8HR PRN Administration Nausea And Vomiting Pantoprazole Sodium 40 mg 01/11/24 09:00 01/11/24 07:52 Pantoprazole 40 Mg/10 Ml Vial IV 40 mg DAILY PAMELA Administration Pantoprazole Sodium 40 mg 01/11/24 07:30 01/11/24 06:21 Pantoprazole 40 Mg Tablet PO Not Given DAILY@0730 PAMELA Quetiapine Fumarate 300 mg 01/10/24 21:45 01/10/24 22:03 Quetiapine 100 Mg Tab PO 300 mg HS PAMELA Administration Thiamine HCl 100 mg 01/11/24 21:00 Thiamine 100 Mg Tab PO HS PAMELA Intake and Output 01/10/24 01/11/24 01/11/24 22:59 06:59 14:59 Other: # Voids 1 # Bowel Movements 0 Weight 77.111 kg 01/11/24 03:51 01/10/24 17:13
--- NOTE | 2024-01-11 13:45 | P.HPIM ---
History of Present Illness H&P Date: 01/11/24 History of present illness; 53-year-old lady with past medical history significant for hyperlipidemia, depression, who presented ER because of complaint of lightheadedness and dizziness. Patient stated that she has been feeling very fatigued and dizzy for the last few days, she was complaining of p alpitations. Patient also complaining of squeezing chest pain, central location, nonradiating, no aggravating or relieving associated with chest pain. There is no complaint of shortness of breath. Patient stated that she felt like she is going to pass out. Denied any nausea, vomiting abdominal pain. Because of the symptoms, patient brought to the ER Initial lab work done in the ER showed WBC 8.2, hemoglobin 12.9, platelet count 277, sodium 130, potassium 3.5, BUN 8, creatinine 0.4 phosphorus 2.1, magnesium 1.9, AST 42, ALT 22, troponin 0.012 proBNP 171 EKG done in the ER showed heart rate of 108, no ST segment elevation or depression seen, no T-wave inversions seen. Chest x-ray done in the ER showed no acute cardiopulmonary process Patient admitted to internal medicine service REVIEW OF SYSTEMS: CONSTITUTIONAL: No fever, no malaise, no fatigue. HEENT: No recent visual problems or hearing problems. Denied any sore throat. CARDIOVASCULAR: As mentioned above PULMONARY: As mentioned above GASTROINTESTINAL: No diarrhea, no nausea, no vomiting, no abdominal pain. NEUROLOGICAL: No headaches, no weakness, no numbness. HEMATOLOGICAL: Denies any bleeding or petechiae. GENITOURINARY: Denies any burning micturition, frequency, or urgency. MUSCULOSKELETAL/RHEUMATOLOGICAL: Denies any joint pain, swelling, or any muscle pain. ENDOCRINE: Denies any polyuria or polydipsia. The rest of the 14-point review of systems is negative. PHYSICAL EXAMINATION: GENERAL: The patient is alert and oriented x3, not in any acute distress. Well developed, well nourished. HEENT: Pupils are round and equally reacting to light. EOMI. No scleral icterus. No conjunctival pallor. Normocephalic, atraumatic. No pharyngeal erythema. No thyromegaly. CARDIOVASCULAR: S1 and S2 present. No murmurs, rubs, or gallops. PULMONARY: Chest is clear to auscultation, no wheezing or crackles. ABDOMEN: Soft, nontender, nondistended, normoactive bowel sounds. No palpable organomegaly. MUSCULOSKELETAL: No joint swelling or deformity. EXTREMITIES: No cyanosis, clubbing, or pedal edema. NEUROLOGICAL: Gross neurological examination did not reveal any focal deficits. SKIN: No rashes. Assessment and plan Presyncope Chest pain, rule out acute coronary syndrome Palpitation Sinus tachycardia Hyperlipidemia Gullian Carter syndrome Bipolar disorder Monitor vital signs Monitor CBC Monitor CMP Continue telemetry monitoring Trend troponins. Ordered 2D echo Ordered aspirin and Lipitor Ordered stress test Cardiology consulted Labs and medication were reviewed.. Continue same treatment. Continue with symptomatic treatment. Resume home medication. Monitor labs and vitals. DVT and GI prophylaxis. Further recommendations as per clinical course of the patient Dictation was produced using [employer] dictation software. please excuse any grammatical, word or spelling errors. Past Medical History Past Medical History: Hyperlipidemia, Hypertension, Seizure Disorder Additional Past Medical History / Comment(s): Migraines, viral meningitis x3 as a child, 1995, 2000, chronic back pain, nerve blocks (neck and occipital nerve) 08/2016 and 12/2016. Last seizure 10/10/2020, "ABSENT SEIZURES. HX TACHYCARDIA, Complex PTSD. gillean barre History of Any Multi-Drug Resistant Organisms: None Reported Past Surgical History: Appendectomy, Section, Cholecystectomy, Heart Catheterization, Heart Catheterization With Stent, Hernia Repair, Hysterectomy, Orthopedic Surgery, Tonsillectomy, Tubal Ligation Additional Past Surgical History / Comment(s): Hiatal Hernia, umbilical hernia repair, left rotator cuff repair, bilateral knee scopes, pain clinic procedures- occipital nerve block. abd exploratory sx(endometreosis), 3 abd scopes 1981, 1989, 1991), lumbar puncture. EGD. nerve biopsy, salvalry gland biospy, Port (Right side 2018, left side 2020), Esophogeal dilation(2023) Past Anesthesia/Blood Transfusion Reactions: No Reported Reaction Additional Past Anesthesia/Blood Transfusion Reaction / Comment(s): Claustrophobic Date of Last Stent Placement:: 06/03/2022 Past Psychological History: Anxiety, Bipolar, Panic Disorder, PTSD Additional Psychological History / Comment(s): lives at home witth Smoking Status: Former smoker Past Alcohol Use History: None Reported Additional Past Alcohol Use History / Comment(s): SMOKED [id number] Past Drug Use History: None Reported - Past Family History Mother Family Medical History: Cancer, Dementia, Diabetes Mellitus, GERD/Reflux, Hyperlipidemia, Hypertension, Thyroid Disorder, Vascular Disorder Additional Family Medical History / Comment(s): CABG x2, stents Father History Unknown: Yes Family Medical History: No Reported History Medications and Allergies Home Medications Medication Instructions Recorded Confirmed Type Omeprazole [PriLOSEC] 20 mg PO HS 12/15/20 01/10/24 History Thiamine [Vitamin B-1] 100 mg PO HS 01/04/21 01/10/24 History Atorvastatin [Lipitor] 40 mg PO HS 07/20/21 01/10/24 History DULoxetine HCL [Cymbalta] 60 mg PO HS 07/20/21 01/10/24 History Atogepant [Qulipta] 60 mg PO HS 06/03/22 01/10/24 History Cyclobenzaprine [Flexeril] 10 mg PO TID PRN 06/03/22 01/10/24 History HYDROcodone/APAP 10-325MG [[place] 1 tab PO TID 06/03/22 01/10/24 History 10-325] Aspirin 81 mg PO HS 08/29/22 01/10/24 History Cyanocobalamin (Vitamin B-12) 1,000 mcg PO BID 09/07/23 01/10/24 History [Vitamin B-12] Multivitamins, Thera [Multivitamin 1 tab PO HS 09/07/23 01/10/24 History (formulary)] Zavegepant HCl [Zavzpret] 1 spray NASAL DAILY PRN 09/07/23 01/10/24 History Potassium Chloride ER [K-Dur 10] 10 meq PO BID 12/10/23 01/10/24 History QUEtiapine FUMARATE [SEROquel] 300 mg PO HS 01/10/24 01/10/24 History Allergies Allergy/AdvReac Type Severity Reaction Status Date / Time dihydroergotamine Allergy Unknown Unknown Verified 01/10/24 18:23 [From Migranal] buprenorphine Allergy Rash/Hives Verified 01/10/24 18:23 gabapentin [From Neurontin] Allergy Itching/Swe Verified 01/10/24 18:23 lling latex Allergy Anaphylaxis Verified 01/10/24 18:23 naproxen [From Naprosyn] Allergy Anaphylaxis Verified 01/10/24 18:23 Penicillins Allergy Anaphylaxis Verified 01/10/24 18:23 prednisone Allergy Swelling Verified 01/10/24 18:23 quetiapine fumarate Allergy Itching, Verified 01/10/24 18:23 [From Seroquel] leg cramps rofecoxib [From Vioxx] Allergy Itching, Verified 01/10/24 18:23 leg cramps terfenadine [From Seldane] Allergy Rash/Hives Verified 01/10/24 18:23 vancomycin Allergy Rash/Hives/Swelling Verified 01/10/24 18:23 @IV site calcium carbonate [From DHEA] AdvReac Chest Pain Verified 01/10/24 18:23 calcium phosphate,dibasic AdvReac Chest Pain Verified 01/10/24 18:23 [From DHEA] clindamycin AdvReac muscle Verified 01/10/24 18:23 cramps clonidine AdvReac fast Verified 01/10/24 18:23 heartbeat, migraine dextromethorphan HBr AdvReac face/neck Verified 01/10/24 18:23 [From NyQuil] flushing diazepam [From Valium] AdvReac Nausea & Verified 01/10/24 18:23 Vomiting divalproex sodium AdvReac Nausea & Verified 01/10/24 18:23 [From Depakote] Vomiting doxylamine [From NyQuil] AdvReac face "beet Verified 01/10/24 18:23 red", elevated temp. ibuprofen [From Motrin] AdvReac abdominal Verified 01/10/24 18:23 & muscle cramps indomethacin [From Indocin] AdvReac Abdominal Verified 01/10/24 18:23 Pain,N/V ketorolac tromethamine AdvReac "built up Verified 01/10/24 18:23 [From Toradol] in system", had to be given something to reverse lorazepam [From Ativan] AdvReac Nausea & Verified 01/10/24 18:23 Vomiting memantine [From Namenda] AdvReac Itching Verified 01/10/24 18:23 metoclopramide HCl AdvReac muscle Verified 01/10/24 18:23 [From Reglan] cramps nortriptyline [From Pamelor] AdvReac Chest Pain Verified 01/10/24 18:23 prasterone (DHEA) [From DHEA] AdvReac Chest Pain Verified 01/10/24 18:23 prochlorperazine AdvReac leg Verified 01/10/24 18:23 [From Compazine] cramping propranolol AdvReac Chest Pain Verified 01/10/24 18:23 pseudoephedrine HCl AdvReac face "beet Verified 01/10/24 18:23 [From NyQuil] red", elevated temp. quetiapine [From Seroquel] AdvReac leg Verified 01/10/24 18:23 cramping sumatriptan [From Imitrex] AdvReac migrane Verified 01/10/24 18:23 sumatriptan succinate AdvReac migrane Verified 01/10/24 18:23 [From Imitrex] topiramate [From Topamax] AdvReac "built up Verified 01/10/24 18:23 in system", had to be given something to reverse tramadol AdvReac Nausea & Verified 01/10/24 18:23 Vomiting/LEG CRAMPS/HEART FLUTTERS trazodone AdvReac "built up Verified 01/10/24 18:23 in system", had to be given something to reverse zolpidem tartrate AdvReac "Became Verified 01/10/24 18:23 [From Ambien] violent with no memory" zonisamide [From Zonegran] AdvReac inability Verified 01/10/24 18:23 to eat artificial sweetener AdvReac SEVERE Uncoded 01/10/24 16:12 MIGRAINE HEADACHE prosyn AdvReac Itching Uncoded 01/10/24 16:12 Physical Exam Vitals: Vital Signs Temp Pulse Pulse Resp BP BP Pulse Ox 01/11/24 07:00 98 F 87 16 130/87 97 01/11/24 01:02 97.4 F L 104 H 19 147/89 99 01/10/24 22:59 124 H 134/82 01/10/24 21:09 97.9 F 89 18 163/93 98 01/10/24 20:20 96 22 144/99 98 01/10/24 17:56 93 16 125/84 97 01/10/24 16:31 104 H 23 155/97 95 01/10/24 16:08 97.9 F 126 H 26 H 81/44 100 Intake and Output 01/10/24 01/11/24 01/11/24 22:59 06:59 14:59 Other: # Voids 1 # Bowel Movements 0 Weight 77.111 kg Results CBC & Chem 7: 01/11/24 03:51 01/11/24 03:51 Labs: Abnormal Lab Results - Last 24 Hours (Table) 01/10/24 01/10/24 01/11/24 Range/Units 17:13 17:13 03:51 RBC 3.54 L (4.10-5.20) X 10*6/uL Hgb 11.8 L (12.0-15.0) g/dL Hct 35.7 L (37.2-46.3) % MCV 100.8 H (80.0-97.0) FL MCH 33.3 H (27.0-32.0) pg RDW 14.6 H (11.5-14.5) % APTT 42.2 H (22.0-30.0) sec Phosphorus 2.1 L (2.5-4.5) mg/dL AST 42 H (14-36) U/L Total Protein 5.5 L (6.3-8.2) g/dL Albumin 3.0 L (3.5-5.0) g/dL
[2024-01-11] MEDS: NON FORMULARY DRUG (Atogepant [Qulipta] 60 MG Tablet) PO SCH (20:26)
[2024-01-11] MEDS: CYCLOBENZAPRINE 10 MG TAB PO PRN (20:27)
[2024-01-11] MEDS: ASPIRIN 81 MG PO SCH (20:27)
[2024-01-11] MEDS: THIAMINE 100 MG TAB PO SCH (20:27)
[2024-01-11] MEDS: MULTIVITAMINS, THERA 1 EACH TAB PO SCH (20:27)
[2024-01-12 08:14] VITALS: RESP 16
--- NOTE | 2024-01-12 11:26 | P.PN ---
Subjective HISTORY OF PRESENT ILLNESS: This is a 53-year-old female patient of Dr. Corrales with past medical history of coronary artery disease status post stenting to the mid LAD, seizure disorder, migraine headaches, generalized anxiety disorder, bipolar disorder, PTSD, Jayna Cárdenas syndrome. We have been asked to evaluate the patient for SVT. Patient presented to the emergency center due to chest pain that cause a squeezing sensation around her chest along with a migraine headache and feeling that her heartbeat was coming out of her chest. Patient also had nausea without vomiting, fever, sweats and chills. She states she tried Pepto-Bismol and Phenergan suppository at home that did not seem to help. The chest pain does not seem to be related to activity. Only new medication change was Seroquel was added 1 month ago. Blood pressure 130/87, heart rate 97, telemetry is a sinus rhythm currently at 99 bpm post was up to 138 bpm max. In the emergency center, patient received Dilaudid, Benadryl and Zofran. Zofran seem to help her nausea. Patient has no tenderness on her chest wall but it is uncomfortable to take a deep breath. The pain that she is experiences is not similar to that the require stent placement. Patient has a port in the left anterior chest wall for treatment of [place] Cárdenas. Patient also gives history that she was at [facility] last week and was seen by Dr. Bustillos and told her that she had SVT. Upon review of telemetry, it does not appear the patient has had SVT here. EKG: Sinus tachycardia at 108 bpm Chest x-ray: No acute process Laboratory studies: WBC 5.9, hemoglobin 11.8, platelet count 253, D-dimer 0.29. Electrolytes are normal. BUN 6.2 and creatinine 0.9. Troponin negative x 3. C-reactive protein less than 0.5. TSH normal at 0.754. proBNP 171. Magnesium 1.9. Home cardiac medications: Aspirin 81 mg daily, Lipitor 40 mg daily, potassium 10 mill equivalents twice daily. Lexiscan Cardiolite stress test performed 10/24/2022 revealed no evidence of reversible ischemia. Cardiac catheterization history May 2022 with stenting of the LAD Tilt table test August 2022 did not reveal evidence of neurocardiogenic syncope dysautonomia Echocardiogram performed August 2022 revealed EF 55 to 60%, LVH, mild pulmonary hypertension, trace mitral regurgitation, trace to mild tricuspid regurgitation and trace pulmonic regurgitation 01/12/2024 Patient examined this morning at the bedside. Patient currently denies any shortness of breath or cough. She does report chest discomfort that is worse with deep inspiration. Patient's vital signs are stable. She is scheduled to undergo Lexiscan stress test today. PHYSICAL EXAM: VITAL SIGNS: Reviewed. GENERAL: Well-developed in no acute distress. NECK: Supple. No JVD or thyromegaly LUNGS: Respirations even and unlabored. Lungs essentially clear to auscultation bilaterally. HEART: Regular rate and rhythm. S1 and S2 heard. EXTREMITIES: Normal range of motion. No clubbing or cyanosis. Peripheral pulses intact. No lower extremity edema ASSESSMENT: Sinus tachycardia Atypical chest pain, acute coronary syndrome ruled out Migraine headache with nausea, fever, sweats and chills History of coronary artery disease status post PCI of the mid LAD 05/2022 History of SVT, January 2024, at [facility] Hyperlipidemia Recurrent syncope Seizure disorder [place] Cárdenas syndrome Bipolar disorder PTSD PLAN: 2D echo has been ordered. Await results. Continue current cardiac medications Patient scheduled to undergo Lexiscan stress test today If negative, she may be discharged home today from a cardiac standpoint Patient to follow-up postdischarge with Dr. Corrales Nurse practitioner note has been reviewed by physician. Signing provider agrees with the documented findings, assessment, and plan of care documented by [employer] as a scribe. Objective - Vital Signs Vital signs: Vital Signs Temp 97.9 F 01/12/24 07:00 Pulse 104 H 01/12/24 07:00 Resp 16 01/12/24 07:00 BP 128/87 01/12/24 07:00 Pulse Ox 97 01/12/24 07:00 FiO2 Intake & Output 01/11/24 01/12/24 01/12/24 18:59 06:59 18:59 Other: # Voids 5 3 - Labs CBC & Chem 7: 01/11/24 03:51 01/11/24 03:51
--- NOTE | 2024-01-12 12:24 | CA ---
Lexiscan Nuclear Stress Test Report Name: Shaniqua Garza Exam Date: 01/12/2024 11:18 Exam Location: [place] Stress Ht (in): 63 Wt (lb): 170 BSA: 1.80 Ordering Phys: Candace Dean Referring Phys: CANDACE DEAN Technologist: NORBERTO Age: 53 Gender: F : 1970 Procedure CPT: Indications: Reflex order-Stress test ICD-10 Codes: Patient History: Chest pain and SVT Medications: Meds past 24 hrs: Pretest Chest Pain: STRESS TEST Lexiscan Protocol Exercise Duration (min:sec): 02:[address] Depressions (mm): Angina Score: Aaron Score: Resting HR (bpm): 86 Peak HR (bpm): 100 Resting BP (mmHg): 127 / 77 Peak BP (mmHg): 126 / 77 MPHR: 169 Target HR: 144 % MPHR: 59 METS: 1.0 Total Dose: Peak Dose: Atropine: Double Product: 21054 BP Response: Stress Termination: Infusion complete Stress Symptoms: No chest pain or symptoms Stress Summary: ECG ANALYSIS Resting ECG: Sinus rhythm. Normal conduction. No arrhythmias. Normal repolarization. Stress ECG: No ECG changes from baseline with Lexiscan infusion. CONCLUSIONS No ECG evidence of ischemia with Lexiscan infusion. Nuclear test results to follow. Dr. Joni Matt MD (Electronically Signed) Final Date: 12 January 2024 12:23
--- NOTE | 2024-01-12 12:26 | CA ---
Transthoracic Echo Report Name: Shaniqua Garza Age: 53 Gender: F : 1970 Exam Date: 01/12/2024 11:46 Exam Location: [place] Echo Ht (in): 63 Wt (lb): 170 Ordering Physician: Katelyn Bassett Attending/Referring Phys: [employer] Minnie Song RDCS Procedure CPT: Indications: LVF Cardiac Hx: Technical Quality: Good Contrast 1: Total Dose (mL): Contrast 2: Total Dose (mL): MEASUREMENTS (Male / Female) Normal Values 2D ECHO LV Diastolic Diameter PLAX 3.9 cm 4.2 - 5.9 / 3.9 - 5.3 cm LV Systolic Diameter PLAX 2.7 cm IVS Diastolic Thickness 1.0 cm 0.6 - 1.0 / 0.6 - 0.9 cm LVPW Diastolic Thickness 1.0 cm 0.6 - 1.0 / 0.6 - 0.9 cm LV Relative Wall Thickness 0.5 RV Internal Dim ED PLAX 2.4 cm LA Systolic Diameter LX 3.7 cm 3.0 - 4.0 / 2.7 - 3.8 cm LV Diastolic Volume MOD BP 47.3 cm??? 67 - 155 / 56 - 104 cm??? LV Systolic Volume MOD BP 23.5 cm??? 22 - 58 / 19 - 49 cm??? LV Ejection Fraction MOD BP 50.4 % >= 55 % LV Cardiac Index MOD BP 1040.8 cm???/min???m??? LV Diastolic Volume MOD 4C 56.3 cm??? LV Systolic Volume MOD 4C 28.1 cm??? LV Ejection Fraction MOD 4C 50.1 % LV Cardiac Index MOD 4C 1230.8 cm???/min???m??? LV Diastolic Length 4C 7.7 cm LV Systolic Length 4C 6.8 cm LV Diastolic Volume MOD 2C 36.3 cm??? LV Systolic Volume MOD 2C 17.9 cm??? LV Ejection Fraction MOD 2C 50.7 % LV Cardiac Index MOD 2C 804.9 cm???/min???m??? LV Diastolic Length 2C 7.0 cm LV Systolic Length 2C 6.2 cm M-MODE Aortic Root Diameter MM 2.8 cm LA Systolic Diameter MM 3.5 cm LA Ao Ratio MM 1.3 AV Cusp Separation MM 1.8 cm DOPPLER Mitral E Point Velocity 68.0 cm/s Mitral A Point Velocity 105.8 cm/s Mitral E to A Ratio 0.6 MV Deceleration Time 195.6 ms MV E' Velocity 5.5 cm/s Mitral E to MV E' Ratio 12.3 TR Peak Velocity 231.7 cm/s TR Peak Gradient 21.5 mmHg FINDINGS Left Ventricle Left ventricular ejection fraction is estimated at 55-60 %. Mildly increased posterior wall thickness. Left ventricular cavity size normal. Normal left ventricular systolic function with no obvious regional wall motion abnormalities. Right Ventricle Normal right ventricular size and function. Right ventricular systolic pressure within normal limits. Right Atrium Normal right atrial size. Left Atrium Normal left atrial size. Mitral Valve Structurally normal mitral valve. Trace mitral regurgitation. No mitral stenosis. Aortic Valve Trileaflet aortic valve. No aortic stenosis. No aortic regurgitation. Tricuspid Valve Structurally normal tricuspid valve. Trace tricuspid regurgitation. No tricuspid stenosis. Pulmonic Valve Structurally normal pulmonic valve. No pulmonic regurgitation. No pulmonic stenosis. Pericardium No pericardial or pleural effusion. Aorta Normal size aortic root and proximal ascending aorta. CONCLUSIONS 1. Normal left ventricle size and systolic function 2. Trace mitral and tricuspid regurgitation Previewed by: Dr. Joni Matt MD (Electronically Signed) Final Date: 12 January 2024 12:25
--- NOTE | 2024-01-12 14:01 | NM ---
EXAMINATION TYPE: NM stress lexiscan cardiolite DATE OF EXAM: 01/12/2024 COMPARISON: NONE CLINICAL INDICATION: Female, 53 years old with history of chest pain; TECHNIQUE: After the intravenous administration of 10.25 mCi Tc 99m Sestamibi - Cardiolite resting S PECT images acquired 70 minutes post injection. The patient received 0.4mg Lexiscan, 25.7 mCi Tc 99m Sestamibi - Stress images obtained [address] injection FINDINGS: Review of stress and rest SPECT images demonstrates some possible reversibility involving the mid to basal septal wall. However, the finding is not corroborated on the polar maps. No distinct perfusion abnormality. Gated analysis shows normal wall motion with an estimated left ventricular ejection fra ction of 67 %. TID is calculated at 1.0, within normal limits. IMPRESSION: 1. Attenuation artifact favored over a small area of reversibility involving the mid septal wall as t he finding is not corroborated on polar maps. 2. Otherwise, no convincing reversible ischemia is identified. [facility], , 01/12/2024 1:59 PM
[2024-01-12 15:22] VITALS: BP 145/90; PULSE 102; TEMP 98.3
--- NOTE | 2024-01-14 12:43 | P.DS ---
Providers Date of admission: 01/10/24 19:08 Expected date of discharge: 01/13/24 Attending physician: All Wilson Consults: 01/10/24 19:07 Consult Physician Routine Consulting Provider: Joni Matt Consult Reason/Comments: svt Do you want consulting provider notified?: Yes Primary care physician: [facility] Course: Discharge diagnoses; Presyncope Chest pain, rule out acute coronary syndrome Palpitation Sinus tachycardia Migraine headache with nausea, fever, sweats and chills History of coronary artery disease status post PCI of the mid LAD 05/2022 Hyperlipidemia Gullian Keller syndrome Bipolar disorder Hospital course; 53-year-old lady with past medical history significant for hyperlipidemia, depression, who presented ER because of complaint of lightheadedness and dizziness. Patient stated that she has been feeling very fatigued and dizzy for the last few days, she was complaining of palpitations. Patient also complaining of squeezing chest pain, central location, nonradiating, no aggravating or relieving associated with chest pain. There is no complaint of shortness of breath. Patient stated that she felt like she is going to pass out. Denied any nausea, vomiting abdominal pain. Because of the symptoms, patient brought to the ER Initial lab work done in the ER showed WBC 8.2, hemoglobin 12.9, platelet count 277, sodium 130, potassium 3.5, BUN 8, creatinine 0.4 phosphorus 2.1, magnesium 1.9, AST 42, ALT 22, troponin 0.012 proBNP 171 EKG done in the ER showed heart rate of 108, no ST segment elevation or depression seen, no T-wave inversions seen. Chest x-ray done in the ER showed no acute cardiopulmonary process Patient admitted to internal medicine service 01/11. Patient seen and examined. Currently n.p.o., going for Lumateiscan today. Patient underwent stress test is negative for any ischemia. 2D echo done showed normal LV size and systolic function, trace mitral and tricuspid regurg. Cardiology reviewed stress test and echo and cleared the patient for discharge PHYSICAL EXAMINATION: GENERAL: The patient is alert and oriented x3, not in any acute distress. Well developed, well nourished. HEENT: Pupils are round and equally reacting to light. EOMI. No scleral icterus. No conjunctival pallor. Normocephalic, atraumatic. No pharyngeal erythema. No thyromegaly. CARDIOVASCULAR: S1 and S2 present. No murmurs, rubs, or gallops. PULMONARY: Chest is clear to auscultation, no wheezing or crackles. ABDOMEN: Soft, nontender, nondistended, normoactive bowel sounds. No palpable organomegaly. MUSCULOSKELETAL: No joint swelling or deformity. EXTREMITIES: No cyanosis, clubbing, or pedal edema. NEUROLOGICAL: Gross neurological examination did not reveal any focal deficits. SKIN: No rashes. Dictation was produced using [employer] dictation software. please excuse any grammatical, word or spelling errors. Patient Condition at Discharge: Fair Plan - Discharge Summary Discharge Rx Participant: No New Discharge Prescriptions: Continue Thiamine [Vitamin B-1] 100 mg PO HS Atorvastatin [Lipitor] 40 mg PO HS HYDROcodone/APAP 10-325MG [[place] 10-325] 1 tab PO TID Cyclobenzaprine [Flexeril] 10 mg PO TID PRN PRN Reason: Pain Atogepant [Qulipta] 60 mg PO HS Aspirin 81 mg PO HS Zavegepant HCl [Zavzpret] 1 spray NASAL DAILY PRN PRN Reason: Migraine Headache Potassium Chloride ER [K-Dur 10] 10 meq PO BID Omeprazole [PriLOSEC] 20 mg PO HS DULoxetine HCL [Cymbalta] 60 mg PO HS Cyanocobalamin (Vitamin B-12) [Vitamin B-12] 1,000 mcg PO BID Multivitamins, Thera [Multivitamin (formulary)] 1 tab PO HS QUEtiapine FUMARATE [SEROquel] 300 mg PO HS Discharge Medication List Omeprazole [PriLOSEC] 20 mg PO HS 12/15/20 [History] Thiamine [Vitamin B-1] 100 mg PO HS 01/04/21 [History] Atorvastatin [Lipitor] 40 mg PO HS 07/20/21 [History] DULoxetine HCL [Cymbalta] 60 mg PO HS 07/20/21 [History] Atogepant [Qulipta] 60 mg PO HS 06/03/22 [History] Cyclobenzaprine [Flexeril] 10 mg PO TID PRN 06/03/22 [History] HYDROcodone/APAP 10-325MG [[place] 10-325] 1 tab PO TID 06/03/22 [History] Aspirin 81 mg PO HS 08/29/22 [History] Cyanocobalamin (Vitamin B-12) [Vitamin B-12] 1,000 mcg PO BID 09/07/23 [History] Multivitamins, Thera [Multivitamin (formulary)] 1 tab PO HS 09/07/23 [History] Zavegepant HCl [Zavzpret] 1 spray NASAL DAILY PRN 09/07/23 [History] Potassium Chloride ER [K-Dur 10] 10 meq PO BID 12/10/23 [History] QUEtiapine FUMARATE [SEROquel] 300 mg PO HS 01/10/24 [History] Follow up Appointment(s)/Referral(s): José Reece MD [Primary Care Provider] - 1-2 days Eddie Corrales DO [STAFF PHYSICIAN] - 01/19/24 2:00 pm Discharge Disposition: HOME SELF-CARE
== END 2024-01-12 16:28 | disposition home or self-care (01) ==
LOC: EC 16:06 → 6NMEDSUR 19:08
PROVIDERS: ADMIT Hospitalist; ATTEND Hospitalist
DX: R55 Syncope and collapse (principal); R07.89 Other chest pain; R00.2 Palpitations; I47.10 Supraventricular tachycardia, unspecified; G43.909 Migraine, unspecified, not intractable, without status migrainosus; I25.10 Atherosclerotic heart disease of native coronary artery without angina pectoris; E78.5 Hyperlipidemia, unspecified; G61.0 Guillain-Barre syndrome; R11.0 Nausea; R50.9 Fever, unspecified; R42 Dizziness and giddiness; F32.A Depression, unspecified; R53.83 Other fatigue; G40.909 Epilepsy, unspecified, not intractable, without status epilepticus; F43.10 Post-traumatic stress disorder, unspecified; R06.02 Shortness of breath; I48.91 Unspecified atrial fibrillation; F41.0 Panic disorder [episodic paroxysmal anxiety]; F40.240 Claustrophobia; Z79.899 Other long term (current) drug therapy; Z87.891 Personal history of nicotine dependence; Z95.5 Presence of coronary angioplasty implant and graft; Z79.82 Long term (current) use of aspirin; Z88.8 Allergy status to other drugs, medicaments and biological substances; Z88.0 Allergy status to penicillin; Z82.49 Family history of ischemic heart disease and other diseases of the circulatory system; Z83.3 Family history of diabetes mellitus
CPT/HCPCS: 96376 ×4; 96361 ×4; 96375 ×3; 96374; 99291; 36415; 93005; 93017; 93306; 36410; 76937; 85379; 83880; 80053 ×2; 85652; 83605; 83735 ×2; 84100 ×2; 84443; 84484; 85025 ×2; 85610; 85730; 86140; 71046; 78452; G0378 ×3; A9500; J1200; J2405 ×3; J1171 ×3; J1642; J2785; J2470 ×2

== ENCOUNTER 2024-01-16 15:56 | Emergency (ER) | payer OTHER ==
[2024-01-16 16:02] VITALS: TEMP 97.7
--- NOTE | 2024-01-16 16:15 | ED ---
Arrhythmia/Palpitations HPI - General Chief Complaint: Arrhythmia/Palpitations Stated Complaint: Chest pain Time Seen by Provider: 01/16/24 16:10 Source: patient Mode of arrival: ambulatory Limitations: no limitations - History of Present Illness Initial Comments: This patient is a 53-year-old woman with history of SVT, previous coronary artery stenting, who states that she noticed palpitations 1 to 2 hours ago. Patient states that at that time she had been watching TV alternating with reading. She noticed some pain in the substernal area radiating to her back and she also has had some associated nausea. Patient also having tingling to the bilateral hands. MD Complaint: "heart racing" -: hour(s) Context: occurred during rest Arrhythmia History: SVT Associated Symptoms: nausea/vomiting, paresthesias - Related Data Home Medications Medication Instructions Recorded Confirmed Omeprazole [PriLOSEC] 20 mg PO HS 12/15/20 01/10/24 Thiamine [Vitamin B-1] 100 mg PO HS 01/04/21 01/10/24 Atorvastatin [Lipitor] 40 mg PO HS 07/20/21 01/10/24 DULoxetine HCL [Cymbalta] 60 mg PO HS 07/20/21 01/10/24 Atogepant [Qulipta] 60 mg PO HS 06/03/22 01/10/24 Cyclobenzaprine [Flexeril] 10 mg PO TID PRN 06/03/22 01/10/24 HYDROcodone/APAP 10-325MG [[place] 1 tab PO TID 06/03/22 01/10/24 10-325] Aspirin 81 mg PO HS 08/29/22 01/10/24 Cyanocobalamin (Vitamin B-12) 1,000 mcg PO BID 09/07/23 01/10/24 [Vitamin B-12] Multivitamins, Thera [Multivitamin 1 tab PO HS 09/07/23 01/10/24 (formulary)] Zavegepant HCl [Zavzpret] 1 spray NASAL DAILY PRN 09/07/23 01/10/24 Potassium Chloride ER [K-Dur 10] 10 meq PO BID 12/10/23 01/10/24 QUEtiapine FUMARATE [SEROquel] 300 mg PO HS 01/10/24 01/10/24 Allergies Allergy/AdvReac Type Severity Reaction Status Date / Time dihydroergotamine Allergy Unknown Unknown Verified 01/10/24 18:23 [From Migranal] buprenorphine Allergy Rash/Hives Verified 01/10/24 18:23 gabapentin [From Neurontin] Allergy Itching/Swe Verified 01/10/24 18:23 lling latex Allergy Anaphylaxis Verified 01/10/24 18:23 naproxen [From Naprosyn] Allergy Anaphylaxis Verified 01/10/24 18:23 Penicillins Allergy Anaphylaxis Verified 01/10/24 18:23 prednisone Allergy Swelling Verified 01/10/24 18:23 quetiapine fumarate Allergy Itching, Verified 01/10/24 18:23 [From Seroquel] leg cramps rofecoxib [From Vioxx] Allergy Itching, Verified 01/10/24 18:23 leg cramps terfenadine [From Seldane] Allergy Rash/Hives Verified 01/10/24 18:23 vancomycin Allergy Rash/Hives/Swelling Verified 01/10/24 18:23 @IV site calcium carbonate [From DHEA] AdvReac Chest Pain Verified 01/10/24 18:23 calcium phosphate,dibasic AdvReac Chest Pain Verified 01/10/24 18:23 [From DHEA] clindamycin AdvReac muscle Verified 01/10/24 18:23 cramps clonidine AdvReac fast Verified 01/10/24 18:23 heartbeat, migraine dextromethorphan HBr AdvReac face/neck Verified 01/10/24 18:23 [From NyQuil] flushing diazepam [From Valium] AdvReac Nausea & Verified 01/10/24 18:23 Vomiting divalproex sodium AdvReac Nausea & Verified 01/10/24 18:23 [From Depakote] Vomiting doxylamine [From NyQuil] AdvReac face "beet Verified 01/10/24 18:23 red", elevated temp. ibuprofen [From Motrin] AdvReac abdominal Verified 01/10/24 18:23 & muscle cramps indomethacin [From Indocin] AdvReac Abdominal Verified 01/10/24 18:23 Pain,N/V ketorolac tromethamine AdvReac "built up Verified 01/10/24 18:23 [From Toradol] in system", had to be given something to reverse lorazepam [From Ativan] AdvReac Nausea & Verified 01/10/24 18:23 Vomiting memantine [From Namenda] AdvReac Itching Verified 01/10/24 18:23 metoclopramide HCl AdvReac muscle Verified 01/10/24 18:23 [From Reglan] cramps nortriptyline [From Pamelor] AdvReac Chest Pain Verified 01/10/24 18:23 prasterone (DHEA) [From DHEA] AdvReac Chest Pain Verified 01/10/24 18:23 prochlorperazine AdvReac leg Verified 01/10/24 18:23 [From Compazine] cramping propranolol AdvReac Chest Pain Verified 01/10/24 18:23 pseudoephedrine HCl AdvReac face "beet Verified 01/10/24 18:23 [From NyQuil] red", elevated temp. quetiapine [From Seroquel] AdvReac leg Verified 01/10/24 18:23 cramping sumatriptan [From Imitrex] AdvReac migrane Verified 01/10/24 18:23 sumatriptan succinate AdvReac migrane Verified 01/10/24 18:23 [From Imitrex] topiramate [From Topamax] AdvReac "built up Verified 01/10/24 18:23 in system", had to be given something to reverse tramadol AdvReac Nausea & Verified 01/10/24 18:23 Vomiting/LEG CRAMPS/HEART FLUTTERS trazodone AdvReac "built up Verified 01/10/24 18:23 in system", had to be given something to reverse zolpidem tartrate AdvReac "Became Verified 01/10/24 18:23 [From Ambien] violent with no memory" zonisamide [From Zonegran] AdvReac inability Verified 01/10/24 18:23 to eat artificial sweetener AdvReac SEVERE Uncoded 01/10/24 16:12 MIGRAINE HEADACHE prosyn AdvReac Itching Uncoded 01/10/24 16:12 Review of Systems ROS Statement: Those systems with pertinent positive or pertinent negative responses have been documented in the HPI. ROS Other: All systems not noted in ROS Statement are negative. Constitutional: Denies: fever, chills, weakness Eyes: Denies: vision change Respiratory: Denies: cough, dyspnea Cardiovascular: Reports: chest pain, palpitations. Denies: orthopnea, edema, syncope Gastrointestinal: Reports: nausea. Denies: abdominal pain, vomiting, diarrhea Genitourinary: Denies: dysuria, hematuria Musculoskeletal: Denies: back pain Skin: Denies: rash Neurological: Reports: paresthesias. Denies: headache, weakness, numbness Psychiatric: Reports: anxiety Past Medical History Past Medical History: Hyperlipidemia, Hypertension, Seizure Disorder, Supraventricular Tachycardia (SVT) Additional Past Medical History / Comment(s): Migraines, viral meningitis x3 as a child, 1995, 2000, chronic back pain, nerve blocks (neck and occipital nerve) 08/2016 and 12/2016. Last seizure 10/10/2020, "ABSENT SEIZURES. HX TACHYCARDIA, Complex PTSD. gillean barre History of Any Multi-Drug Resistant Organisms: None Reported Past Surgical History: Appendectomy, Section, Cholecystectomy, Heart Catheterization, Heart Catheterization With Stent, Hernia Repair, Hysterectomy, Orthopedic Surgery, Tonsillectomy, Tubal Ligation Additional Past Surgical History / Comment(s): Hiatal Hernia, umbilical hernia repair, left rotator cuff repair, bilateral knee scopes, pain clinic procedures- occipital nerve block. abd exploratory sx(endometreosis), 3 abd scopes 1981, 1989, 1991), lumbar puncture. EGD. nerve biopsy, salvalry gland biospy, Port (Right side 2018, left side 2020), Esophogeal dilation(2023) Past Anesthesia/Blood Transfusion Reactions: No Reported Reaction Additional Past Anesthesia/Blood Transfusion Reaction / Comment(s): Claustrophobic Date of Last Stent Placement:: 06/03/2022 Past Psychological History: Anxiety, Bipolar, Panic Disorder, PTSD Smoking Status: Former smoker Past Alcohol Use History: None Reported Past Drug Use History: None Reported - Past Family History Mother Family Medical History: Cancer, Dementia, Diabetes Mellitus, GERD/Reflux, Hyperlipidemia, Hypertension, Thyroid Disorder, Vascular Disorder Additional Family Medical History / Comment(s): CABG x2, stents Father History Unknown: Yes Family Medical History: No Reported History General Exam Limitations: no limitations General appearance: alert, in no apparent distress, anxious Head exam: Present: atraumatic, normocephalic Eye exam: Present: normal appearance. Absent: scleral icterus, conjunctival injection ENT exam: Present: normal oropharynx Neck exam: Present: normal inspection Respiratory exam: Present: normal lung sounds bilaterally. Absent: respiratory distress, wheezes, rales, rhonchi, stridor, accessory muscle use Cardiovascular Exam: Present: regular rate, normal rhythm, normal heart sounds. Absent: systolic murmur, diastolic murmur, rubs, gallop GI/Abdominal exam: Present: soft. Absent: distended, tenderness, guarding, rebound, rigid, mass Extremities exam: Present: normal inspection, normal capillary refill. Absent: pedal edema, calf tenderness Back exam: Present: normal inspection. Absent: CVA tenderness (R), CVA tenderness (L) Neurological exam: Present: alert Skin exam: Present: warm, dry, intact, normal color. Absent: rash Course Vital Signs 01/16/24 15:58 Temperature 97.7 F Pulse Rate 89 Respiratory 24 Rate Blood Pressure 146/91 O2 Sat by Pulse 100 Oximetry EKG Findings - EKG Results: EKG: interpreted by ERMD, sinus rhythm (71 bpm), normal axis, normal QRS, normal ST/T, no acute changes - Dysrhythmias: Sinus rhythms and dysrhythmias: sinus rhythm Medical Decision Making - Medical Decision Making The patient had two-view chest x-ray that I interpreted as negative for acute infiltrate, pneumothorax, congestive heart failure. There is a port present - Lab Data Result diagrams: 01/16/24 17:35 01/16/24 17:35 Lab Results 01/16/24 01/16/24 01/16/24 Range/Units 17:35 17:35 17:35 WBC 5.4 (3.8-10.6) k/uL RBC 3.90 (3.80-5.40) m/uL Hgb 12.9 (11.4-16.0) gm/dL Hct 39.0 (34.0-46.0) % MCV 99.9 (80.0-100.0) fL MCH 32.9 (25.0-35.0) pg MCHC 33.0 (31.0-37.0) g/dL RDW 13.9 (11.5-15.5) % Plt Count 274 (150-450) k/uL MPV 8.5 Neutrophils % 55 % Lymphocytes % 30 % Monocytes % 6 % Eosinophils % 4 % Basophils % 0 % Neutrophils # 3.0 (1.3-7.7) k/uL Lymphocytes # 1.6 (1.0-4.8) k/uL Monocytes # 0.3 (0-1.0) k/uL Eosinophils # 0.2 (0-0.7) k/uL Basophils # 0.0 (0-0.2) k/uL Sodium 138 (137-145) mmol/L Potassium 3.7 (3.5-5.1) mmol/L Chloride 107 (98-107) mmol/L Carbon Dioxide 28 (22-30) mmol/L Anion Gap 3 mmol/L BUN 4 L (7-17) mg/dL Creatinine 0.77 (0.52-1.04) mg/dL Est GFR (CKD-EPI)AfAm >90 (>60 ml/min/1.73 sqM) Est GFR (CKD-EPI)NonAf 90 (>60 ml/min/1.73 sqM) Glucose 95 (74-99) mg/dL Calcium 8.5 (8.4-10.2) mg/dL Magnesium 2.2 (1.6-2.3) mg/dL Total Bilirubin 0.4 (0.2-1.3) mg/dL AST 70 H (14-36) U/L ALT 52 H (4-34) U/L Alkaline Phosphatase 131 H (38-126) U/L Troponin I <0.012 (0.000-0.034) ng/mL Total Protein 5.7 L (6.3-8.2) g/dL Albumin 3.3 L (3.5-5.0) g/dL Disposition Clinical Impression: Palpitations Disposition: HOME SELF-CARE Condition: Good Instructions (If sedation given, give patient instructions): Heart Palpitations (ED) Is patient prescribed a controlled substance at d/c from ED?: No Referrals: José Reece MD [Primary Care Provider] - 1-2 days Tahir Bustillos MD [STAFF PHYSICIAN] - 1-2 days
--- NOTE | 2024-01-16 16:35 | XR ---
EXAMINATION TYPE: XR chest 2V DATE OF EXAM: 01/16/2024 COMPARISON: 01/10/24 HISTORY: Shortness of breath TECHNIQUE: Frontal and lateral views of the chest are obtained. FINDINGS: Scattered senescent parenchymal changes noted. Hyperinflation compatible with COPD. No evidence for infiltrate. No evidence for atelectasis. Heart size is stable. Mediastinal structures are stable and grossly unremarkable. No evidence for hilar prominence. Degenerative changes dorsal spine. IMPRESSION: 1. No evidence for acute pulmonary disease. [facility], , 01/16/2024 4:33 PM
[2024-01-16] MEDS: ONDANSETRON 4 MG/2 ML VIAL IM STA (17:11)
[2024-01-16 18:04] LABS: Basophils % (A) 0 %; Eosinophils # (A) 0.2 k/uL (0-0.7); Eosinophils % (A) 4 %; HGB 12.9 gm/dL (11.4-16.0); Lymphocytes # (A) 1.6 k/uL (1.0-4.8); Lymphocytes % (A) 30 %; MCH 32.9 pg (25.0-35.0); MCV 99.9 fL (80.0-100.0); Mean Platelet Volume 8.5; Monocytes # (A) 0.3 k/uL (0-1.0); Monocytes % (A) 6 %; Neutrophils % (A) 55 %; Platelet Count 274 k/uL (150-450); RDW 13.9 % (11.5-15.5); WBC 5.4 k/uL (3.8-10.6)
[2024-01-16 18:05] LABS: ALT 52 U/L (4-34); AST 70 U/L (14-36); African American GFR (CKD) >90 (>60 ml/min/1.73 sqM); Albumin 3.3 g/dL (3.5-5.0); Alkaline Phosphatase 131 U/L (38-126); Anion Gap 3 mmol/L; Blood Urea Nitrogen 4 mg/dL (7-17); Calcium 8.5 mg/dL (8.4-10.2); Carbon Dioxide 28 mmol/L (22-30); Chloride 107 mmol/L (98-107); Glucose 95 mg/dL (74-99); Magnesium 2.2 mg/dL (1.6-2.3); Non-African American GFR(CKD) 90 (>60 ml/min/1.73 sqM); Potassium 3.7 mmol/L (3.5-5.1); Sodium 138 mmol/L (137-145); Total Bilirubin 0.4 mg/dL (0.2-1.3); Total Protein 5.7 g/dL (6.3-8.2)
[2024-01-16] MEDS: MORPHINE SULFATE 4 MG/ML SYRINGE IV STA (18:15)
[2024-01-16 18:54] VITALS: BP 135/101; PULSE 81; RESP 17
[2024-01-16] MEDS: ONDANSETRON 4 MG/2 ML VIAL IVP STA (19:02)
== END 2024-01-16 19:04 | disposition home or self-care (01) ==
LOC: EC 15:56
CPT/HCPCS: 36415; 71046; 80053; 83735; 84484; 85025; 93005; 96374; 96375; 96376; 99285

== ENCOUNTER 2024-01-22 16:36 | Emergency (ER) | payer OTHER ==
[2024-01-22 16:54] VITALS: RESP 18
--- NOTE | 2024-01-22 17:28 | ED ---
Arrhythmia/Palpitations HPI - General Source: patient Mode of arrival: ambulatory Limitations: no limitations - History of Present Illness MD Complaint: rapid heart beat, "heart racing", palpitations Onset/Timin -: hour(s) Arrhythmia History: SVT Associated Symptoms: chest pain, nausea/vomiting, muscle cramps <Antoine York - Last Filed: 01/22/24 17:24> - General Source: patient, RN notes reviewed, old records reviewed Mode of arrival: ambulatory Limitations: no limitations - History of Present Illness MD Complaint: rapid heart beat, "heart racing", palpitations -: hour(s), days(s) Arrhythmia History: SVT Associated Symptoms: chest pain, nausea/vomiting, muscle cramps <Jose Antonio An - Last Filed: 01/27/24 21:32> - General Chief Complaint: Arrhythmia/Palpitations Stated Complaint: Tightness in chest Time Seen by Provider: 01/22/24 17:02 - History of Present Illness Initial Comments: This is a 53-year-old female with history of SVT racing heart and chest pain x 5 hours. Patient states heart rate has gotten as high as 178 bpm states her pulse ox has remained above 95% on room air throughout. Patient also endorses as sociated chest pain (8 out of 10) and nausea. Patient describes chest pain as heaviness and tightness. Patient states she normally takes metoprolol which she has since run out of. Patient states she has been ablation with Dr. Waterman scheduled for March 16. Patient denies dyspnea, pallor, sweating, altered LOC, altered mental status, radiating pain, near syncope. (Antoine York) This is a 53-year-old female well-known to this ER for evaluation today of tachycardia currently off of her normal medications at home for heart rate (Jose Antonio An) - Related Data Home Medications Medication Instructions Recorded Confirmed Omeprazole [PriLOSEC] 20 mg PO HS 12/15/20 01/10/24 Thiamine [Vitamin B-1] 100 mg PO HS 01/04/21 01/10/24 Atorvastatin [Lipitor] 40 mg PO HS 07/20/21 01/10/24 DULoxetine HCL [Cymbalta] 60 mg PO HS 07/20/21 01/10/24 Atogepant [Qulipta] 60 mg PO HS 06/03/22 01/10/24 Cyclobenzaprine [Flexeril] 10 mg PO TID PRN 06/03/22 01/10/24 HYDROcodone/APAP 10-325MG [[place] 1 tab PO TID 06/03/22 01/10/24 10-325] Aspirin 81 mg PO HS 08/29/22 01/10/24 Cyanocobalamin (Vitamin B-12) 1,000 mcg PO BID 09/07/23 01/10/24 [Vitamin B-12] Multivitamins, Thera [Multivitamin 1 tab PO HS 09/07/23 01/10/24 (formulary)] Zavegepant HCl [Zavzpret] 1 spray NASAL DAILY PRN 09/07/23 01/10/24 Potassium Chloride ER [K-Dur 10] 10 meq PO BID 12/10/23 01/10/24 QUEtiapine FUMARATE [SEROquel] 300 mg PO HS 01/10/24 01/10/24 Previous Rx's Medication Instructions Recorded Metoprolol Tartrate [Lopressor] 50 mg PO BID #60 tab 01/22/24 Allergies Allergy/AdvReac Type Severity Reaction Status Date / Time dihydroergotamine Allergy Unknown Unknown Verified 01/22/24 16:52 [From Migranal] buprenorphine Allergy Rash/Hives Verified 01/22/24 16:52 gabapentin [From Neurontin] Allergy Itching/Swe Verified 01/22/24 16:52 lling latex Allergy Anaphylaxis Verified 01/22/24 16:52 naproxen [From Naprosyn] Allergy Anaphylaxis Verified 01/22/24 16:52 Penicillins Allergy Anaphylaxis Verified 01/22/24 16:52 prednisone Allergy Swelling Verified 01/22/24 16:52 quetiapine fumarate Allergy Itching, Verified 01/22/24 16:52 [From Seroquel] leg cramps rofecoxib [From Vioxx] Allergy Itching, Verified 01/22/24 16:52 leg cramps terfenadine [From Seldane] Allergy Rash/Hives Verified 01/22/24 16:52 vancomycin Allergy Rash/Hives/Swelling Verified 01/22/24 16:52 @IV site calcium carbonate [From DHEA] AdvReac Chest Pain Verified 01/22/24 16:52 calcium phosphate,dibasic AdvReac Chest Pain Verified 01/22/24 16:52 [From DHEA] clindamycin AdvReac muscle Verified 01/22/24 16:52 cramps clonidine AdvReac fast Verified 01/22/24 16:52 heartbeat, migraine dextromethorphan HBr AdvReac face/neck Verified 01/22/24 16:52 [From NyQuil] flushing diazepam [From Valium] AdvReac Nausea & Verified 01/22/24 16:52 Vomiting divalproex sodium AdvReac Nausea & Verified 01/22/24 16:52 [From Depakote] Vomiting doxylamine [From NyQuil] AdvReac face "beet Verified 01/22/24 16:52 red", elevated temp. ibuprofen [From Motrin] AdvReac abdominal Verified 01/22/24 16:52 & muscle cramps indomethacin [From Indocin] AdvReac Abdominal Verified 01/22/24 16:52 Pain,N/V ketorolac tromethamine AdvReac "built up Verified 01/22/24 16:52 [From Toradol] in system", had to be given something to reverse lorazepam [From Ativan] AdvReac Nausea & Verified 01/22/24 16:52 Vomiting memantine [From Namenda] AdvReac Itching Verified 01/22/24 16:52 metoclopramide HCl AdvReac muscle Verified 01/22/24 16:52 [From Reglan] cramps nortriptyline [From Pamelor] AdvReac Chest Pain Verified 01/22/24 16:52 prasterone (DHEA) [From DHEA] AdvReac Chest Pain Verified 01/22/24 16:52 prochlorperazine AdvReac leg Verified 01/22/24 16:52 [From Compazine] cramping propranolol AdvReac Chest Pain Verified 01/22/24 16:52 pseudoephedrine HCl AdvReac face "beet Verified 01/22/24 16:52 [From NyQuil] red", elevated temp. quetiapine [From Seroquel] AdvReac leg Verified 01/22/24 16:52 cramping sumatriptan [From Imitrex] AdvReac migrane Verified 01/22/24 16:52 sumatriptan succinate AdvReac migrane Verified 01/22/24 16:52 [From Imitrex] topiramate [From Topamax] AdvReac "built up Verified 01/22/24 16:52 in system", had to be given something to reverse tramadol AdvReac Nausea & Verified 01/22/24 16:52 Vomiting/LEG CRAMPS/HEART FLUTTERS trazodone AdvReac "built up Verified 01/22/24 16:52 in system", had to be given something to reverse zolpidem tartrate AdvReac "Became Verified 01/22/24 16:52 [From Ambien] violent with no memory" zonisamide [From Zonegran] AdvReac inability Verified 01/22/24 16:52 to eat artificial sweetener AdvReac SEVERE Uncoded 01/22/24 16:52 MIGRAINE HEADACHE prosyn AdvReac Itching Uncoded 01/22/24 16:52 Review of Systems ROS Other: All systems not noted in ROS Statement are negative. <Antoine York - Last Filed: 01/22/24 17:24> ROS Other: All systems not noted in ROS Statement are negative. <Jose Antonio An - Last Filed: 01/27/24 21:32> ROS Statement: Those systems with pertinent positive or pertinent negative responses have been documented in the HPI. Past Medical History Past Medical History: Hyperlipidemia, Hypertension, Seizure Disorder, Supraventricular Tachycardia (SVT) Additional Past Medical History / Comment(s): Migraines, viral meningitis x3 as a child, 1995, 2000, chronic back pain, nerve blocks (neck and occipital nerve) 08/2016 and 12/2016. Last seizure 10/10/2020, "ABSENT SEIZURES. HX TACHYCARDIA, Complex PTSD. gillean barre History of Any Multi-Drug Resistant Organisms: None Reported Past Surgical History: Appendectomy, Section, Cholecystectomy, Heart Catheterization, Heart Catheterization With Stent, Hernia Repair, Hysterectomy, Orthopedic Surgery, Tonsillectomy, Tubal Ligation Additional Past Surgical History / Comment(s): Hiatal Hernia, umbilical hernia repair, left rotator cuff repair, bilateral knee scopes, pain clinic procedures- occipital nerve block. abd exploratory sx(endometreosis), 3 abd scopes 1981, 1989, 1991), lumbar puncture. EGD. nerve biopsy, salvalry gland biospy, Port (Right side 2018, left side 2020), Esophogeal dilation(2023) Past Anesthesia/Blood Transfusion Reactions: No Reported Reaction Additional Past Anesthesia/Blood Transfusion Reaction / Comment(s): Claustrophobic Date of Last Stent Placement:: 06/03/2022 Past Psychological History: Anxiety, Bipolar, Panic Disorder, PTSD Smoking Status: Former smoker Past Alcohol Use History: None Reported Past Drug Use History: None Reported - Past Family History Mother Family Medical History: Cancer, Dementia, Diabetes Mellitus, GERD/Reflux, Hyperlipidemia, Hypertension, Thyroid Disorder, Vascular Disorder Additional Family Medical History / Comment(s): CABG x2, stents Father History Unknown: Yes Family Medical History: No Reported History <Antoine York - Last Filed: 01/22/24 17:24> General Exam Limitations: no limitations <Antoine York - Last Filed: 01/22/24 17:24> General appearance: alert, in no apparent distress Head exam: Present: atraumatic, normocephalic, normal inspection Eye exam: Present: normal appearance, PERRL, EOMI. Absent: scleral icterus, conjunctival injection, periorbital swelling ENT exam: Present: normal exam, mucous membranes moist Neck exam: Present: normal inspection. Absent: tenderness, meningismus, lymphadenopathy Respiratory exam: Present: normal lung sounds bilaterally. Absent: respiratory distress, wheezes, rales, rhonchi, stridor Cardiovascular Exam: Present: normal rhythm, tachycardia, normal heart sounds. Absent: systolic murmur, diastolic murmur, rubs, gallop, clicks GI/Abdominal exam: Present: soft, normal bowel sounds. Absent: distended, tenderness, guarding, rebound, rigid Extremities exam: Present: normal inspection, full ROM, normal capillary refill. Absent: tenderness, pedal edema, joint swelling, calf tenderness Back exam: Present: normal inspection Neurological exam: Present: alert, oriented X3, CN II-XII intact Psychiatric exam: Present: normal affect, normal mood Skin exam: Present: warm, dry, intact, normal color. Absent: rash <Jose Antonio An - Last Filed: 01/27/24 21:32> - General Exam Comments Initial Comments: Visual Physical Exam Vital signs reviewed General: Well-appearing, nontoxic, no acute distress. Head: Normocephalic, atraumatic Eyes: PERRLA, EOMI ENT: Airway patent Chest: Nonlabored breathing Skin: No visual rash, normal skin tone Neuro: Alert and oriented 3 Musculoskeletal: No gross abnormalities (Antoine York) Course <Jose Antonio An - Last Filed: 01/27/24 21:32> Vital Signs 01/22/24 01/22/24 01/22/24 16:53 20:03 20:39 Temperature 97.4 F L 98.3 F 98.0 F Pulse Rate 117 H 108 H 101 H Respiratory 18 18 18 Rate Blood Pressure 139/94 181/96 178/95 O2 Sat by Pulse 99 100 100 Oximetry - Reevaluation(s) Reevaluation #1: Records reviewed (Jose Antonio An) Reevaluation #2: Patient symptoms unchanged (Jose Antonio An) Reevaluation #3: Patient informed of results and questions answered (Jose Antonio An) Reevaluation #4: Was pt. sent in by a medical professional or institution (, PA, ENVIRONMENTAL SERVICES PROJECT MANAGER, urgent care, hospital, or group home...) When possible be specific @ -no Did you speak to anyone other than the patient for history (EMS, parent, family, police, friend...)? What history was obtained from this source @ -no Did you review nursing and triage notes (agree or disagree)? Why? @ -agree Are old charts reviewed (outside hosp., previous admission, EMS record, old EKG, old radiological studies, urgent care reports/EKG's, group home records)? Report findings @ -yes Differential Diagnosis (chest pain, altered mental status, abdominal pain women, abdominal pain men, vaginal bleeding, weakness, fever, dyspnea, syncope, he adache, dizziness, GI bleed, back pain, seizure, CVA, palpatations, mental health, musculoskeletal)? @ -prior EKG interpreted by me (3pts min.). @ -yes X-rays interpreted by me (1pt min.). @ -no CT interpreted by me (1pt min.). @ -no U/S interpreted by me (1pt. min.). @ -no What testing was considered but not performed or refused? (CT, X-rays, U/S, labs)? Why? @ -none What meds were considered but not given or refused? Why? @ -none Did you discuss the management of the patient with other professionals (professionals i.e. , PA, ENVIRONMENTAL SERVICES PROJECT MANAGER, lab, RT, psych nurse, social services aide, production sanitizer, teacher, nursing officer, watch case polisher)? Give summary @ -no Was smoking cessation discussed for >3mins.? @ -no Was critical care preformed (if so, how long)? @ -no Were there social determinants of health that impacted care today? How? (Homelessness, low income, unemployed, alcoholism, drug addiction, transportation, low edu. Level, literacy, decrease access to med. care, penitentiary, rehab)? @ -none Was there de-escalation of care discussed even if they declined (Discuss DNR or withdrawal of care, Hospice)? DNR status @ -no What co-morbidities impacted this encounter? (DM, HTN, Smoking, COPD, CAD, Canc er, CVA, ARF, Chemo, Hep., AIDS, mental health diagnosis, sleep apnea, morbid obesity)? @ -none Was patient admitted / discharged? Hospital course, mention meds given and route, prescriptions, significant lab abnormalities, going to OR and other pertinent info. @ - 53 female to the ER for evaluation patient presents with chronic pain chronic headache chronic pain patient has significant neuropathic issue injury and pain. Patient placed on medications feels better and can be discharged home Discharge Undiagnosed new problem with uncertain prognosis? @ -no Drug Therapy requiring intensive monitoring for toxicity (Heparin, Nitro, Insulin, Cardizem)? @ -no Were any procedures done? @ -no Diagnosis/symptom? @ -Chronic pain Acute, or Chronic, or Acute on Chronic? @ -Acute Uncomplicated (without systemic symptoms) or Complicated (systemic symptoms)? @ -Complicated Side effects of treatment? @ -no Exacerbation, Progression, or Severe Exacerbation? @ -exacerbation Poses a threat to life or bodily function? How? (Chest pain, [place], CA, pneumonia, PE, COPD, DKA, ARF, appy, cholecystitis, CVA, Diverticulitis, Homicidal, Suicidal, threat to staff... and all critical care pts) @ -yes with chronic pain (Jose Antonio An) Reevaluation #5: Differential Palpitations Ventricular arrhythmias, atrial arrhythmias, myocardial infarction, anemia, th yrotoxicosis, electrolyte imbalance, hypokalemia, pulmonary embolism, pulmonary disease, drugs, alcohol, anxiety, stress.... This is not meant to be an all-inclusive list. (Jose Antonio An) EKG Findings - EKG Comments: EKG Findings:: EKG is sinus 87 SC 140 QRS 75 QTc 412 - EKG Results: EKG: interpreted by ERMD <Jose Antonio An - Last Filed: 01/27/24 21:32> Medical Decision Making <Antoine York - Last Filed: 01/22/24 17:24> - EKG Data -: EKG Interpreted by Me <Jose Antonio An - Last Filed: 01/27/24 21:32> - Medical Decision Making I completed the quick note portion of this chart signed SKYLAR Hyde (Antoine York) 53 female to the ER for evaluation patient presents with chronic pain chronic headache chronic pain patient has significant neuropathic issue injury and pain. Patient placed on medications feels better and can be discharged home (Jose Antonio An) Disposition <Antoine York - Last Filed: 01/22/24 17:24> Is patient prescribed a controlled substance at d/c from ED?: No Time of Disposition: 20:10 <Jose Antonio An - Last Filed: 01/27/24 21:32> Clinical Impression: Tachycardia Disposition: HOME SELF-CARE Condition: Good Instructions (If sedation given, give patient instructions): Supraventricular Tachycardia (ED), Heart Palpitations (ED), Tachycardia (ED) Prescriptions: Metoprolol Tartrate [Lopressor] 50 mg PO BID #60 tab Referrals: José Reece MD [Primary Care Provider] - 1-2 days
[2024-01-22] MEDS: HYDROmorphone 1 MG/ML 1 ML SYRINGE IM STA (20:32)
[2024-01-22] MEDS: ONDANSETRON ODT 4 MG TAB PO STA (20:33)
[2024-01-22] MEDS: METOPROLOL SUCCINATE (ER) 50 MG TAB.ER.24H PO STA (20:33)
[2024-01-22 20:40] VITALS: BP 178/95; PULSE 101; TEMP 98
== END 2024-01-22 20:39 | disposition home or self-care (01) ==
LOC: EC 16:36
CPT/HCPCS: 93005; 96372; 99285

== ENCOUNTER 2024-01-25 15:50 | Emergency (ER) | payer OTHER ==
--- NOTE | 2024-01-25 16:32 | ED ---
General Adult HPI - General Source: patient Mode of arrival: ambulatory Limitations: no limitations <Phoenix Adorno - Last Filed: 01/25/24 16:31> <Danny Hathaway - Last Filed: 01/25/24 23:10> - General Stated complaint: heart racing,SOB,chest tightness Time Seen by Provider: 01/25/24 16:31 - History of Present Illness Initial comments: 53-year-old female presenting with chief complaint of palpitations. States that it started about 2 hours ago. She has history of SVT. Admits to chest pain. (Phoenix Adorno) Patient presents to the ED stating that she has had rapid heart palpitations since this morning. Patient states that she continues to have palpitations currently (patient is in normal sinus rhythm on the radiation monitor). Patient also admits to having diffuse chest heaviness, dyspnea and nausea. Patient states that she has a history of SVT and is scheduled to have an ablation procedure. Patient denies trauma or injury, fever or chills, headache, focal numbness/weakness/neuro deficit, neck/arm/jaw/back pain, pleuritic pain, cough or cold symptoms, dizziness, syncope, abdominal pain, vomiting or diarrhea, bloody or melanotic stool, dysuria or urinary symptoms, decreased urine output, leg or calf swelling or pain, or any other symptoms or complaints. (Danny Hathaway) - Related Data Home Medications Medication Instructions Recorded Confirmed Omeprazole [PriLOSEC] 20 mg PO HS 12/15/20 01/10/24 Thiamine [Vitamin B-1] 100 mg PO HS 01/04/21 01/10/24 Atorvastatin [Lipitor] 40 mg PO HS 07/20/21 01/10/24 DULoxetine HCL [Cymbalta] 60 mg PO HS 07/20/21 01/10/24 Atogepant [Qulipta] 60 mg PO HS 06/03/22 01/10/24 Cyclobenzaprine [Flexeril] 10 mg PO TID PRN 06/03/22 01/10/24 HYDROcodone/APAP 10-325MG [[place] 1 tab PO TID 06/03/22 01/10/24 10-325] Aspirin 81 mg PO HS 08/29/22 01/10/24 Cyanocobalamin (Vitamin B-12) 1,000 mcg PO BID 09/07/23 01/10/24 [Vitamin B-12] Multivitamins, Thera [Multivitamin 1 tab PO HS 09/07/23 01/10/24 (formulary)] Zavegepant HCl [Zavzpret] 1 spray NASAL DAILY PRN 09/07/23 01/10/24 Potassium Chloride ER [K-Dur 10] 10 meq PO BID 12/10/23 01/10/24 QUEtiapine FUMARATE [SEROquel] 300 mg PO HS 01/10/24 01/10/24 Previous Rx's Medication Instructions Recorded Metoprolol Tartrate [Lopressor] 50 mg PO BID #60 tab 01/22/24 Allergies Allergy/AdvReac Type Severity Reaction Status Date / Time dihydroergotamine Allergy Unknown Unknown Verified 01/22/24 16:52 [From Migranal] buprenorphine Allergy Rash/Hives Verified 01/22/24 16:52 gabapentin [From Neurontin] Allergy Itching/Swe Verified 01/22/24 16:52 lling latex Allergy Anaphylaxis Verified 01/22/24 16:52 naproxen [From Naprosyn] Allergy Anaphylaxis Verified 01/22/24 16:52 Penicillins Allergy Anaphylaxis Verified 01/22/24 16:52 prednisone Allergy Swelling Verified 01/22/24 16:52 quetiapine fumarate Allergy Itching, Verified 01/22/24 16:52 [From Seroquel] leg cramps rofecoxib [From Vioxx] Allergy Itching, Verified 01/22/24 16:52 leg cramps terfenadine [From Seldane] Allergy Rash/Hives Verified 01/22/24 16:52 vancomycin Allergy Rash/Hives/Swelling Verified 01/22/24 16:52 @IV site calcium carbonate [From DHEA] AdvReac Chest Pain Verified 01/22/24 16:52 calcium phosphate,dibasic AdvReac Chest Pain Verified 01/22/24 16:52 [From DHEA] clindamycin AdvReac muscle Verified 01/22/24 16:52 cramps clonidine AdvReac fast Verified 01/22/24 16:52 heartbeat, migraine dextromethorphan HBr AdvReac face/neck Verified 01/22/24 16:52 [From NyQuil] flushing diazepam [From Valium] AdvReac Nausea & Verified 01/22/24 16:52 Vomiting divalproex sodium AdvReac Nausea & Verified 01/22/24 16:52 [From Depakote] Vomiting doxylamine [From NyQuil] AdvReac face "beet Verified 01/22/24 16:52 red", elevated temp. ibuprofen [From Motrin] AdvReac abdominal Verified 01/22/24 16:52 & muscle cramps indomethacin [From Indocin] AdvReac Abdominal Verified 01/22/24 16:52 Pain,N/V ketorolac tromethamine AdvReac "built up Verified 01/22/24 16:52 [From Toradol] in system", had to be given something to reverse lorazepam [From Ativan] AdvReac Nausea & Verified 01/22/24 16:52 Vomiting memantine [From Namenda] AdvReac Itching Verified 01/22/24 16:52 metoclopramide HCl AdvReac muscle Verified 01/22/24 16:52 [From Reglan] cramps nortriptyline [From Pamelor] AdvReac Chest Pain Verified 01/22/24 16:52 prasterone (DHEA) [From DHEA] AdvReac Chest Pain Verified 01/22/24 16:52 prochlorperazine AdvReac leg Verified 01/22/24 16:52 [From Compazine] cramping propranolol AdvReac Chest Pain Verified 01/22/24 16:52 pseudoephedrine HCl AdvReac face "beet Verified 01/22/24 16:52 [From NyQuil] red", elevated temp. quetiapine [From Seroquel] AdvReac leg Verified 01/22/24 16:52 cramping sumatriptan [From Imitrex] AdvReac migrane Verified 01/22/24 16:52 sumatriptan succinate AdvReac migrane Verified 01/22/24 16:52 [From Imitrex] topiramate [From Topamax] AdvReac "built up Verified 01/22/24 16:52 in system", had to be given something to reverse tramadol AdvReac Nausea & Verified 01/22/24 16:52 Vomiting/LEG CRAMPS/HEART FLUTTERS trazodone AdvReac "built up Verified 01/22/24 16:52 in system", had to be given something to reverse zolpidem tartrate AdvReac "Became Verified 01/22/24 16:52 [From Ambien] violent with no memory" zonisamide [From Zonegran] AdvReac inability Verified 01/22/24 16:52 to eat artificial sweetener AdvReac SEVERE Uncoded 01/22/24 16:52 MIGRAINE HEADACHE prosyn AdvReac Itching Uncoded 01/22/24 16:52 Review of Systems ROS Other: All systems not noted in ROS Statement are negative. <Phoenix Adorno - Last Filed: 01/25/24 16:31> ROS Other: All systems not noted in ROS Statement are negative. <Danny Hathaway - Last Filed: 01/25/24 23:10> ROS Statement: Those systems with pertinent positive or pertinent negative responses have been documented in the HPI. Past Medical History Past Medical History: Hyperlipidemia, Hypertension, Seizure Disorder, Supraventricular Tachycardia (SVT) Additional Past Medical History / Comment(s): Migraines, viral meningitis x3 as a child, 1995, 2000, chronic back pain, nerve blocks (neck and occipital nerve) 08/2016 and 12/2016. Last seizure 10/10/2020, "ABSENT SEIZURES. HX TACHYCARDIA, Complex PTSD. gillean barre History of Any Multi-Drug Resistant Organisms: None Reported Past Surgical History: Appendectomy, Section, Cholecystectomy, Heart Catheterization, Heart Catheterization With Stent, Hernia Repair, Hysterectomy, Orthopedic Surgery, Tonsillectomy, Tubal Ligation Additional Past Surgical History / Comment(s): Hiatal Hernia, umbilical hernia repair, left rotator cuff repair, bilateral knee scopes, pain clinic procedures- occipital nerve block. abd exploratory sx(endometreosis), 3 abd scopes 1981, 1989, 1991), lumbar puncture. EGD. nerve biopsy, salvalry gland biospy, Port (Right side 2018, left side 2020), Esophogeal dilation(2023) Past Anesthesia/Blood Transfusion Reactions: No Reported Reaction Additional Past Anesthesia/Blood Transfusion Reaction / Comment(s): Claustrophobic Date of Last Stent Placement:: 06/03/2022 Past Psychological History: Anxiety, Bipolar, Panic Disorder, PTSD Smoking Status: Former smoker Past Alcohol Use History: None Reported Past Drug Use History: None Reported - Past Family History Mother Family Medical History: Cancer, Dementia, Diabetes Mellitus, GERD/Reflux, Hyperlipidemia, Hypertension, Thyroid Disorder, Vascular Disorder Additional Family Medical History / Comment(s): CABG x2, stents Father History Unknown: Yes Family Medical History: No Reported History <Phoenix Adorno - Last Filed: 01/25/24 16:31> General Exam <Phoenix Adorno - Last Filed: 01/25/24 16:31> Limitations: no limitations General appearance: alert, in no apparent distress Eye exam: Present: normal appearance ENT exam: Present: mucous membranes moist Neck exam: Present: other (Trachea is in midline) Respiratory exam: Present: normal lung sounds bilaterally. Absent: respiratory distress, wheezes, rales, rhonchi, stridor Cardiovascular Exam: Present: regular rate, normal rhythm, normal heart sounds, other (Normal radial pulses bilaterally) GI/Abdominal exam: Present: soft. Absent: distended, tenderness, guarding Extremities exam: Present: other (Negative Homans' sign bilaterally). Absent: tenderness, pedal edema, calf tenderness Neurological exam: Present: alert, oriented X3 Skin exam: Present: warm, dry, intact, normal color <Danny Hathaway - Last Filed: 01/25/24 23:10> - General Exam Comments Initial Comments: Visual Physical Exam General: Well-appearing, nontoxic, no acute distress. Head: Normocephalic, atraumatic Eyes: PERRLA, EOMI ENT: Airway patent Chest: Nonlabored breathing Skin: No visual rash, normal skin tone Neuro: Alert and oriented 3 Musculoskeletal: No gross abnormalities (Phoenix Adorno) Course Vital Signs 01/25/24 17:38 Temperature 97.5 F L Pulse Rate 66 Respiratory 20 Rate Blood Pressure 152/90 O2 Sat by Pulse 99 Oximetry EKG Findings - EKG Comments: EKG Findings:: ED physician interpretation (interpreted by me): Normal sinus rhythm, no ectopy, ventricular rate of 60 bpm, normal GA and QRS intervals, normal QT interval, normal axis, no ST or T wave abnormality <Danny Hathaway - Last Filed: 01/25/24 23:10> Medical Decision Making <Phoenix Adorno - Last Filed: 01/25/24 16:31> - Lab Data Result diagrams: 01/25/24 20:30 01/25/24 22:11 <Danny Hathaway - Last Filed: 01/25/24 23:10> - Medical Decision Making I performed the quick note portion of this visit, electronically signed Phoenix Anne PA-C) Was pt. sent in by a medical professional or institution (, [facility], [facility], urgent care, hospital, or prison...) When possible be specific @ -No Did you speak to anyone other than the patient for history (EMS, parent, family, police, friend...)? What history was obtained from this source @ -No Did you review nursing and triage notes (agree or disagree)? Why? @ -I reviewed and agree with nursing and triage notes Were old charts reviewed (outside hosp., previous admission, EMS record, old EKG, old radiological studies, urgent care reports/EKG's, prison records)? Report findings @ -No old charts were reviewed Differential Diagnosis (chest pain, altered mental status, abdominal pain women, abdominal pain men, vaginal bleeding, weakness, fever, dyspnea, syncope, headache, dizziness, GI bleed, back pain, seizure, CVA, palpatations, mental health, musculoskeletal)? @ -Differential Palpitations Ventricular arrhythmias, atrial arrhythmias, myocardial infarction, ACS, anemia, electrolyte imbalance, chest pain, chest wall pain, GERD, pleurisy, pneumothorax, pulmonary embolism, pulmonary disease, drugs, alcohol, anxiety, stress.... This is not meant to be an all-inclusive list. EKG interpreted by me (3pts min.). @ -As above X-rays interpreted by me (1pt min.). @ -Chest x-ray was reviewed myself and shows no acute cardiopulmonary disease. I agree with the radiologist's interpretation as above. CT interpreted by me (1pt min.). @ -None done U/S interpreted by me (1pt. min.). @ -None done What testing was considered but not performed or refused? (CT, X-rays, U/S, labs)? Why? @ -None What meds were considered but not given or refused? Why? @ -None Did you discuss the management of the patient with other professionals (professionals i.e. , PA, [facility], lab, RT, psych nurse, social sciences lecturer, personal support worker, teacher, low altitude air defense officer, showcase maker)? Give summary @ -No Was smoking cessation discussed for >3mins.? @ -No Was critical care preformed (if so, how long)? @ -No Were there social determinants of health that impacted care today? How? (Homelessness, low income, unemployed, alcoholism, drug addiction, transportation, low edu. Level, literacy, decrease access to med. care, alf, rehab)? @ -No Was there de-escalation of care discussed even if they declined (Discuss DNR or withdrawal of care, Hospice)? DNR status @ -No What co-morbidities impacted this encounter? (DM, HTN, Smoking, COPD, CAD, Cancer, CVA, ARF, Chemo, Hep., AIDS, mental health diagnosis, sleep apnea, morbid obesity)? @ -None Was patient admitted / discharged? Hospital course, mention meds given and route, prescriptions, significant lab abnormalities, going to OR and other pertinent info. @ -Patient has been in a normal sinus rhythm on the radiation monitor while in the ED. Patient's ED workup, including EKG, chest x-ray, troponin, D-dimer and rest of labs, is fairly unremarkable. Patient is alert and breathing comfortably in the ED with a normal room air oxygen saturation. I do not suspect an emergent medical condition at this time. Patient is aware of her test results. She was counseled about palpitations and chest pain. She was instructed to follow-up closely with her primary care provider. She was clearly explained return and follow-up instructions. She feels comfortable with this plan. Will discharge patient home at this time. Undiagnosed new problem with uncertain prognosis? @ -No Drug Therapy requiring intensive monitoring for toxicity (Heparin, Nitro, Insulin, Cardizem)? @ -No Were any procedures done? @ -No Diagnosis/symptom? @ -Palpitations and chest pain Acute, or Chronic, or Acute on Chronic? @ -Acute Uncomplicated (without systemic symptoms) or Complicated (systemic symptoms)? @ -Default Side effects of treatment? @ -No Exacerbation, Progression, or Severe Exacerbation? @ -No Poses a threat to life or bodily function? How? (Chest pain, USA, MS, pneumonia, PE, COPD, DKA, ARF, appy, cholecystitis, CVA, Diverticulitis, Homicidal, Suicidal, threat to staff... and all critical care pts) @ -No (Danny Hathaway) - Lab Data Lab Results 01/25/24 01/25/24 01/25/24 Range/Units 20:30 20:30 20:30 WBC 6.4 (3.8-10.6) k/uL RBC 4.00 (3.80-5.40) m/uL Hgb 13.1 (11.4-16.0) gm/dL Hct 40.7 (34.0-46.0) % MCV 101.8 H (80.0-100.0) fL MCH 32.8 (25.0-35.0) pg MCHC 32.2 (31.0-37.0) g/dL RDW 14.1 (11.5-15.5) % Plt Count 301 (150-450) k/uL MPV 8.6 Neutrophils % 67 % Lymphocytes % 24 % Monocytes % 5 % Eosinophils % 1 % Basophils % 0 % Neutrophils # 4.3 (1.3-7.7) k/uL Lymphocytes # 1.6 (1.0-4.8) k/uL Monocytes # 0.3 (0-1.0) k/uL Eosinophils # 0.1 (0-0.7) k/uL Basophils # 0.0 (0-0.2) k/uL Macrocytosis Slight PT 10.0 (10.0-12.5) sec INR 0.9 (<1.2) APTT 22.8 (22.0-30.0) sec D-Dimer 0.52 (<0.60) mg/L FEU Sodium (137-145) mmol/L Potassium (3.5-5.1) mmol/L Chloride (98-107) mmol/L Carbon Dioxide (22-30) mmol/L Anion Gap mmol/L BUN (7-17) mg/dL Creatinine (0.52-1.04) mg/dL Est GFR (CKD-EPI)AfAm (>60 ml/min/1.73 sqM) Est GFR (CKD-EPI)NonAf (>60 ml/min/1.73 sqM) Glucose (74-99) mg/dL Calcium (8.4-10.2) mg/dL Magnesium (1.6-2.3) mg/dL Total Bilirubin (0.2-1.3) mg/dL AST (14-36) U/L ALT (4-34) U/L Alkaline Phosphatase (38-126) U/L Troponin I (0.000-0.034) ng/mL NT-Pro-B Natriuret Pep pg/mL Total Protein (6.3-8.2) g/dL Albumin (3.5-5.0) g/dL 01/25/24 01/25/24 01/25/24 Range/Units 22:11 22:11 22:11 WBC (3.8-10.6) k/uL RBC (3.80-5.40) m/uL Hgb (11.4-16.0) gm/dL Hct (34.0-46.0) % MCV (80.0-100.0) fL MCH (25.0-35.0) pg MCHC (31.0-37.0) g/dL RDW (11.5-15.5) % Plt Count (150-450) k/uL MPV Neutrophils % % Lymphocytes % % Monocytes % % Eosinophils % % Basophils % % Neutrophils # (1.3-7.7) k/uL Lymphocytes # (1.0-4.8) k/uL Monocytes # (0-1.0) k/uL Eosinophils # (0-0.7) k/uL Basophils # (0-0.2) k/uL Macrocytosis PT (10.0-12.5) sec INR (<1.2) APTT (22.0-30.0) sec D-Dimer (<0.60) mg/L FEU Sodium 138 (137-145) mmol/L Potassium 3.4 L (3.5-5.1) mmol/L Chloride 106 (98-107) mmol/L Carbon Dioxide 25 (22-30) mmol/L Anion Gap 7 mmol/L BUN 8 (7-17) mg/dL Creatinine 0.71 (0.52-1.04) mg/dL Est GFR (CKD-EPI)AfAm >90 (>60 ml/min/1.73 sqM) Est GFR (CKD-EPI)NonAf >90 (>60 ml/min/1.73 sqM) Glucose 93 (74-99) mg/dL Calcium 8.6 (8.4-10.2) mg/dL Magnesium 1.9 (1.6-2.3) mg/dL Total Bilirubin 0.6 (0.2-1.3) mg/dL AST 59 H (14-36) U/L ALT 53 H (4-34) U/L Alkaline Phosphatase 152 H (38-126) U/L Troponin I <0.012 (0.000-0.034) ng/mL NT-Pro-B Natriuret Pep 1460 pg/mL Total Protein 6.5 (6.3-8.2) g/dL Albumin 3.9 (3.5-5.0) g/dL - Radiology Data Chest x-ray: No acute cardiopulmonary disease/process. (Danny Hathaway) Disposition <Phoenix Adorno - Last Filed: 01/25/24 16:31> Is patient prescribed a controlled substance at d/c from ED?: No Time of Disposition: 23:10 <Danny Hathaway - Last Filed: 01/25/24 23:10> Clinical Impression: Palpitations, Chest pressure Disposition: HOME SELF-CARE Condition: Stable Instructions (If sedation given, give patient instructions): Chest Pain (ED), Heart Palpitations (ED) Additional Instructions: Return to the ER immediately should you develop new or worsening pain, increased shortness of breath, persistent vomiting, feeling dizzy or faint, a fever, or new or worsening symptoms. Follow-up closely with your primary care provider. Referrals: José Reece MD [Primary Care Provider] - 1-2 days
--- NOTE | 2024-01-25 17:39 | XR ---
EXAMINATION TYPE: XR chest 2V DATE OF EXAM: 01/25/2024 4:46 PM CLINICAL INDICATION: Female, 53 years old with history of dysrhythmia; H COMPARISON: Chest radiographs from 01/16/2024 TECHNIQUE: XR chest 2V Frontal view of the chest. FINDINGS: Lungs/Pleura: There is no evidence of pleural effusion, focal consolidation, or pneumothorax. Pulmonary vascularity: Unremarkable. Heart/mediastinum: Cardiomediastinal silhouette is unremarkable. Musculoskeletal: No acute osseous pathology. Other findings: None Lines/Tubes: Plyver-[id number]-Stfp projecting over the left hemithorax with distal tip at the cavoatrial junction. IMPRESSION: No acute cardiopulmonary disease/process. [facility], , 01/25/2024 5:37 PM
[2024-01-25 20:38] LABS: Basophils % (A) 0 %; Eosinophils # (A) 0.1 k/uL (0-0.7); Eosinophils % (A) 1 %; HCT 40.7 % (34.0-46.0); HGB 13.1 gm/dL (11.4-16.0); Lymphocytes # (A) 1.6 k/uL (1.0-4.8); Lymphocytes % (A) 24 %; MCH 32.8 pg (25.0-35.0); MCHC 32.2 g/dL (31.0-37.0); MCV 101.8 fL (80.0-100.0); Macrocytosis Slight; Mean Platelet Volume 8.6; Monocytes # (A) 0.3 k/uL (0-1.0); Monocytes % (A) 5 %; Neutrophils # (A) 4.3 k/uL (1.3-7.7); Neutrophils % (A) 67 %; Platelet Count 301 k/uL (150-450); RDW 14.1 % (11.5-15.5); WBC 6.4 k/uL (3.8-10.6)
[2024-01-25] MEDS: ONDANSETRON ODT 4 MG TAB PO STA (20:40)
[2024-01-25 21:01] LABS: INR 0.9 (<1.2)
[2024-01-25 21:02] LABS: Partial Thromboplastin Time 22.8 sec (22.0-30.0)
[2024-01-25 22:44] LABS: ALT 53 U/L (4-34); AST 59 U/L (14-36); African American GFR (CKD) >90 (>60 ml/min/1.73 sqM); Albumin 3.9 g/dL (3.5-5.0); Alkaline Phosphatase 152 U/L (38-126); Anion Gap 7 mmol/L; Blood Urea Nitrogen 8 mg/dL (7-17); Calcium 8.6 mg/dL (8.4-10.2); Carbon Dioxide 25 mmol/L (22-30); Chloride 106 mmol/L (98-107); Glucose 93 mg/dL (74-99); Magnesium 1.9 mg/dL (1.6-2.3); Non-African American GFR(CKD) >90 (>60 ml/min/1.73 sqM); Potassium 3.4 mmol/L (3.5-5.1); Sodium 138 mmol/L (137-145); Total Bilirubin 0.6 mg/dL (0.2-1.3); Total Protein 6.5 g/dL (6.3-8.2)
[2024-01-25 23:23] VITALS: BP 161/106; PULSE 70; RESP 17; TEMP 98.1
== END 2024-01-25 23:23 | disposition home or self-care (01) ==
LOC: EC 15:50
CPT/HCPCS: 36415; 71046; 80053; 83735; 83880; 84484; 85025; 85379; 85610; 85730; 93005; 99285

== ENCOUNTER 2024-02-03 15:56 | Emergency (ER) | payer OTHER ==
--- NOTE | 2024-02-03 16:42 | ED ---
Headache HPI - General Chief Complaint: Headache Stated Complaint: headache Time Seen by Provider: 02/03/24 16:05 Source: RN notes reviewed, old records reviewed Mode of arrival: ambulatory Limitations: no limitations - History of Present Illness Initial Comments: This is a 53-year-old female to the ER for reevaluation of chronic migraine. Patient had sudden onset of migraine while shopping today she hit the ground and presents to the ER for evaluation of what she believes is of syncope versus near syncopal event with collapse history of syncope, she was initially current concern for SVT returned although that symptoms have resolved and severe headache MD Complaint: headache, "migraine" -: hour(s) Severity: moderate, severe Severity scale (1-10): 9 Quality: aching, throbbing, pulsatile, sharp Consistency: constant Improves With: nothing Worsens With: none Context: occurred with exertion/activity Associated Symptoms: nausea Other Symptoms: diaphoresis, other - Related Data Home Medications Medication Instructions Recorded Confirmed Omeprazole [PriLOSEC] 20 mg PO HS 12/15/20 01/10/24 Thiamine [Vitamin B-1] 100 mg PO HS 01/04/21 01/10/24 Atorvastatin [Lipitor] 40 mg PO HS 07/20/21 01/10/24 DULoxetine HCL [Cymbalta] 60 mg PO HS 07/20/21 01/10/24 Atogepant [Qulipta] 60 mg PO HS 06/03/22 01/10/24 Cyclobenzaprine [Flexeril] 10 mg PO TID PRN 06/03/22 01/10/24 HYDROcodone/APAP 10-325MG [Baldwin 1 tab PO TID 06/03/22 01/10/24 10-325] Aspirin 81 mg PO HS 08/29/22 01/10/24 Cyanocobalamin (Vitamin B-12) 1,000 mcg PO BID 09/07/23 01/10/24 [Vitamin B-12] Multivitamins, Thera [Multivitamin 1 tab PO HS 09/07/23 01/10/24 (formulary)] Zavegepant HCl [Zavzpret] 1 spray NASAL DAILY PRN 09/07/23 01/10/24 Potassium Chloride ER [K-Dur 10] 10 meq PO BID 12/10/23 01/10/24 QUEtiapine FUMARATE [SEROquel] 300 mg PO HS 01/10/24 01/10/24 Previous Rx's Medication Instructions Recorded Metoprolol Tartrate [Lopressor] 50 mg PO BID #60 tab 01/22/24 Allergies Allergy/AdvReac Type Severity Reaction Status Date / Time dihydroergotamine Allergy Unknown Unknown Verified 02/05/24 17:09 [From Migranal] buprenorphine Allergy Rash/Hives Verified 02/05/24 17:09 gabapentin [From Neurontin] Allergy Itching/Swe Verified 02/05/24 17:09 lling latex Allergy Anaphylaxis Verified 02/05/24 17:09 naproxen [From Naprosyn] Allergy Anaphylaxis Verified 02/05/24 17:09 Penicillins Allergy Anaphylaxis Verified 02/05/24 17:09 prednisone Allergy Swelling Verified 02/05/24 17:09 quetiapine fumarate Allergy Itching, Verified 02/05/24 17:09 [From Seroquel] leg cramps rofecoxib [From Vioxx] Allergy Itching, Verified 02/05/24 17:09 leg cramps terfenadine [From Seldane] Allergy Rash/Hives Verified 02/05/24 17:09 vancomycin Allergy Rash/Hives/Swelling Verified 02/05/24 17:09 @IV site calcium carbonate [From DHEA] AdvReac Chest Pain Verified 02/05/24 17:09 calcium phosphate,dibasic AdvReac Chest Pain Verified 02/05/24 17:09 [From DHEA] clindamycin AdvReac muscle Verified 02/05/24 17:09 cramps clonidine AdvReac fast Verified 02/05/24 17:09 heartbeat, migraine dextromethorphan HBr AdvReac face/neck Verified 02/05/24 17:09 [From NyQuil] flushing diazepam [From Valium] AdvReac Nausea & Verified 02/05/24 17:09 Vomiting divalproex sodium AdvReac Nausea & Verified 02/05/24 17:09 [From Depakote] Vomiting doxylamine [From NyQuil] AdvReac face "beet Verified 02/05/24 17:09 red", elevated temp. ibuprofen [From Motrin] AdvReac abdominal Verified 02/05/24 17:09 & muscle cramps indomethacin [From Indocin] AdvReac Abdominal Verified 02/05/24 17:09 Pain,N/V ketorolac tromethamine AdvReac "built up Verified 02/05/24 17:09 [From Toradol] in system", had to be given something to reverse lorazepam [From Ativan] AdvReac Nausea & Verified 02/05/24 17:09 Vomiting memantine [From Namenda] AdvReac Itching Verified 02/05/24 17:09 metoclopramide HCl AdvReac muscle Verified 02/05/24 17:09 [From Reglan] cramps nortriptyline [From Pamelor] AdvReac Chest Pain Verified 02/05/24 17:09 prasterone (DHEA) [From DHEA] AdvReac Chest Pain Verified 02/05/24 17:09 prochlorperazine AdvReac leg Verified 02/05/24 17:09 [From Compazine] cramping propranolol AdvReac Chest Pain Verified 02/05/24 17:09 pseudoephedrine HCl AdvReac face "beet Verified 02/05/24 17:09 [From NyQuil] red", elevated temp. quetiapine [From Seroquel] AdvReac leg Verified 02/05/24 17:09 cramping sumatriptan [From Imitrex] AdvReac migrane Verified 02/05/24 17:09 sumatriptan succinate AdvReac migrane Verified 02/05/24 17:09 [From Imitrex] topiramate [From Topamax] AdvReac "built up Verified 02/05/24 17:09 in system", had to be given something to reverse tramadol AdvReac Nausea & Verified 02/05/24 17:09 Vomiting/LEG CRAMPS/HEART FLUTTERS trazodone AdvReac "built up Verified 02/05/24 17:09 in system", had to be given something to reverse zolpidem tartrate AdvReac "Became Verified 02/05/24 17:09 [From Ambien] violent with no memory" zonisamide [From Zonegran] AdvReac inability Verified 02/05/24 17:09 to eat artificial sweetener AdvReac SEVERE Uncoded 02/05/24 17:09 MIGRAINE HEADACHE prosyn AdvReac Itching Uncoded 02/05/24 17:09 Review of Systems ROS Statement: Those systems with pertinent positive or pertinent negative responses have been documented in the HPI. ROS Other: All systems not noted in ROS Statement are negative. Past Medical History Past Medical History: Hyperlipidemia, Hypertension, Seizure Disorder, Supraventricular Tachycardia (SVT) Additional Past Medical History / Comment(s): Migraines, viral meningitis x3 as a child, 1995, 2000, chronic back pain, nerve blocks (neck and occipital nerve) 08/2016 and 12/2016. Last seizure 10/10/2020, "ABSENT SEIZURES. HX TACHYCARDIA, Complex PTSD. gillean barre History of Any Multi-Drug Resistant Organisms: None Reported Past Surgical History: Appendectomy, Section, Cholecystectomy, Heart Catheterization, Heart Catheterization With Stent, Hernia Repair, Hysterectomy, Orthopedic Surgery, Tonsillectomy, Tubal Ligation Additional Past Surgical History / Comment(s): Hiatal Hernia, umbilical hernia repair, left rotator cuff repair, bilateral knee scopes, pain clinic procedures-occipital nerve block. abd exploratory sx(endometreosis), 3 abd scopes 1981, 1989, 1991), lumbar puncture. EGD. nerve biopsy, salvalry gland biospy, Port (Right side 2018, left side 2020), Esophogeal dilation(2023) Past Anesthesia/Blood Transfusion Reactions: No Reported Reaction Additional Past Anesthesia/Blood Transfusion Reaction / Comment(s): Claustr ophobic Date of Last Stent Placement:: 06/03/2022 Past Psychological History: Anxiety, Bipolar, Panic Disorder, PTSD Smoking Status: Former smoker Past Alcohol Use History: None Reported Past Drug Use History: None Reported - Past Family History Mother Family Medical History: Cancer, Dementia, Diabetes Mellitus, GERD/Reflux, Hyperlipidemia, Hypertension, Thyroid Disorder, Vascular Disorder Additional Family Medical History / Comment(s): CABG x2, stents Father History Unknown: Yes Family Medical History: No Reported History General Exam Limitations: no limitations General appearance: alert, in no apparent distress Head exam: Present: atraumatic, normocephalic, normal inspection Eye exam: Present: normal appearance, PERRL, EOMI. Absent: scleral icterus, conjunctival injection, periorbital swelling ENT exam: Present: normal exam, mucous membranes moist Neck exam: Present: normal inspection. Absent: tenderness, meningismus, lymphadenopathy Respiratory exam: Present: normal lung sounds bilaterally. Absent: respiratory distress, wheezes, rales, rhonchi, stridor Cardiovascular Exam: Present: regular rate, normal rhythm, normal heart sounds. Absent: systolic murmur, diastolic murmur, rubs, gallop, clicks GI/Abdominal exam: Present: soft, normal bowel sounds. Absent: distended, tend erness, guarding, rebound, rigid Extremities exam: Present: normal inspection, full ROM, normal capillary refill. Absent: tenderness, pedal edema, joint swelling, calf tenderness Back exam: Present: normal inspection Neurological exam: Present: alert, oriented X3, CN II-XII intact Psychiatric exam: Present: normal affect, normal mood Skin exam: Present: warm, dry, intact, normal color. Absent: rash Course Vital Signs 02/03/24 02/03/24 15:59 18:04 Temperature 98.1 F 98.0 F Pulse Rate 87 88 Respiratory 22 19 Rate Blood Pressure 161/101 151/94 O2 Sat by Pulse 99 99 Oximetry - Reevaluation(s) Reevaluation #1: 02/03/24 16:41 Medical records reviewed Reevaluation #2: 02/03/24 16:41 Patient symptoms improved Reevaluation #3: 02/03/24 16:41 Patient informed of results questions answered Reevaluation #4: Was pt. sent in by a medical professional or institution (, PA, COUNTY HISTORIAN, urgent care, hospital, or penitentiary...) When possible be specific @ -no Did you speak to anyone other than the patient for history (EMS, parent, family, police, friend...)? What history was obtained from this source @ -no Did you review nursing and triage notes (agree or disagree)? Why? @ -agree Are old charts reviewed (outside hosp., previous admission, EMS record, old EKG, old radiological studies, urgent care reports/EKG's, penitentiary records)? Report findings @ -yes Differential Diagnosis (chest pain, altered mental status, abdominal pain women, abdominal pain men, vaginal bleeding, weakness, fever, dyspnea, syncope, headache, dizziness, GI bleed, back pain, seizure, CVA, palpatations, mental health, musculoskeletal)? @ -prior EKG interpreted by me (3pts min.). @ -no X-rays interpreted by me (1pt min.). @ -no CT interpreted by me (1pt min.). @ -no U/S interpreted by me (1pt. min.). @ -no What testing was considered but not performed or refused? (CT, X-rays, U/S, labs)? Why? @ -none What meds were considered but not given or refused? Why? @ -none Did you discuss the management of the patient with other professionals (professionals i.e. Dr., PA, COUNTY HISTORIAN, lab, RT, psych nurse, professor of social work, title lawyer, teacher, command and control officer, child welfare caseworker)? Give summary @ -no Was smoking cessation discussed for >3mins.? @ -no Was critical care preformed (if so, how long)? @ -no Were there social determinants of health that impacted care today? How? (Homelessness, low income, unemployed, alcoholism, drug addiction, transportation, low edu. Level, literacy, decrease access to med. care, fdc, rehab)? @ -none Was there de-escalation of care discussed even if they declined (Discuss DNR or withdrawal of care, Hospice)? DNR status @ -no What co-morbidities impacted this encounter? (DM, HTN, Smoking, COPD, CAD, Cancer, CVA, ARF, Chemo, Hep., AIDS, mental health diagnosis, sleep apnea, morbid obesity)? @ -none Was patient admitted / discharged? Hospital course, mention meds given and route, prescriptions, significant lab abnormalities, going to OR and other pertinent info. @ - 53 female with severe headache no acute cause of headache found here in the ER patient feels well and can be discharged home Discharge Undiagnosed new problem with uncertain prognosis? @ -no Drug Therapy requiring intensive monitoring for toxicity (Heparin, Nitro, Insulin, Cardizem)? @ -no Were any procedures done? @ -no Diagnosis/symptom? @ -Severe headache and chronic pain Acute, or Chronic, or Acute on Chronic? @ -Acute Uncomplicated (without systemic symptoms) or Complicated (systemic symptoms)? @ -Complicated Side effects of treatment? @ -no Exacerbation, Progression, or Severe Exacerbation? @ -exacerbation Poses a threat to life or bodily function? How? (Chest pain, [place], [place], pneumonia, PE, COPD, DKA, ARF, appy, cholecystitis, CVA, Diverticulitis, Homicidal, Suicidal, threat to staff... and all critical care pts) @ -no Reevaluation #5: Differential Headache: Migraine, tension, cluster, carbon monoxide, central venous thrombosis, pension karma temporal arteritis, acute closure glaucoma, intercranial hemorrhage, mastoiditis, sinusitis, head injury, this is not meant to be an all-inclusive list. Medical Decision Making - Medical Decision Making 53 female with severe headache no acute cause of headache found here in the ER patient feels well and can be discharged home - EKG Data -: EKG Interpreted by Me (EKG is sinus 71 AK 149 QRS 77 QTc 403) Disposition Clinical Impression: Syncope, Fainting spell, Chronic pain, Migraine Disposition: HOME SELF-CARE Condition: Good Instructions (If sedation given, give patient instructions): Acute Headache (ED) Is patient prescribed a controlled substance at d/c from ED?: No Referrals: José Reece MD [Primary Care Provider] - 1-2 days Time of Disposition: 17:00
[2024-02-03] MEDS: diphenhydrAMINE 50 MG CAP PO STA (16:58)
[2024-02-03] MEDS: HYDROmorphone 1 MG/ML 1 ML SYRINGE IM STA (16:58)
[2024-02-03] MEDS: PROCHLORPERAZINE 10 MG TAB PO STA (17:03)
[2024-02-03] MEDS: ONDANSETRON 4 MG TAB PO STA (17:04)
[2024-02-03 18:06] VITALS: BP 151/94; PULSE 88; RESP 19; TEMP 98
== END 2024-02-03 18:05 | disposition home or self-care (01) ==
LOC: EC 15:56
DX: G89.29 Other chronic pain (principal); G43.909 Migraine, unspecified, not intractable, without status migrainosus; R55 Syncope and collapse; Z87.891 Personal history of nicotine dependence; Z88.0 Allergy status to penicillin; Z88.1 Allergy status to other antibiotic agents; Z88.2 Allergy status to sulfonamides; Z88.5 Allergy status to narcotic agent; Z88.6 Allergy status to analgesic agent; Z88.8 Allergy status to other drugs, medicaments and biological substances; Z91.040 Latex allergy status; Z90.49 Acquired absence of other specified parts of digestive tract
CPT/HCPCS: 93005; 99284; 96372; J1171

== ENCOUNTER 2024-02-05 16:59 | Emergency (ER) | payer OTHER ==
[2024-02-05 17:15] VITALS: RESP 24
--- NOTE | 2024-02-05 18:23 | ED ---
Chest Pain HPI - General Chief Complaint: Chest Pain Stated Complaint: chest pain, LEDY Time Seen by Provider: 02/05/24 17:12 Source: patient, RN notes reviewed Mode of arrival: ambulatory Limitations: no limitations - History of Present Illness Initial Comments: This is a 53-year-old female with history of SVT presenting with chest pain (9 out of 10), shortness of breath, nausea and racing heart since 10 AM this morning. Patient describes pain as constant pressure. Endorses use of morning metoprolol but has not taken her evening dose. Patient also endorses use of Moose with no relief. Patient endorses upcoming ablation in March. Patient denies fever, chills, dizziness, radiating pain, pallor, diaphoresis, vomiting/diarrhea. MD Complaint: chest pain Onset/Timin -: hour(s) Onset: during rest Pain Location: substernal Severity scale (1-10): 9 Quality: tightness Consistency: constant Improves With: nothing Other Symptoms: palpitations Treatments Prior to Arrival: other (Metoprolol, Moose) - Related Data Home Medications Medication Instructions Recorded Confirmed Omeprazole [PriLOSEC] 20 mg PO HS 12/15/20 01/10/24 Thiamine [Vitamin B-1] 100 mg PO HS 01/04/21 01/10/24 Atorvastatin [Lipitor] 40 mg PO HS 07/20/21 01/10/24 DULoxetine HCL [Cymbalta] 60 mg PO HS 07/20/21 01/10/24 Atogepant [Qulipta] 60 mg PO HS 06/03/22 01/10/24 Cyclobenzaprine [Flexeril] 10 mg PO TID PRN 06/03/22 01/10/24 HYDROcodone/APAP 10-325MG [Moose 1 tab PO TID 06/03/22 01/10/24 10-325] Aspirin 81 mg PO HS 08/29/22 01/10/24 Cyanocobalamin (Vitamin B-12) 1,000 mcg PO BID 09/07/23 01/10/24 [Vitamin B-12] Multivitamins, Thera [Multivitamin 1 tab PO HS 09/07/23 01/10/24 (formulary)] Zavegepant HCl [Zavzpret] 1 spray NASAL DAILY PRN 09/07/23 01/10/24 Potassium Chloride ER [K-Dur 10] 10 meq PO BID 12/10/23 01/10/24 QUEtiapine FUMARATE [SEROquel] 300 mg PO HS 01/10/24 01/10/24 Previous Rx's Medication Instructions Recorded Metoprolol Tartrate [Lopressor] 50 mg PO BID #60 tab 01/22/24 Allergies Allergy/AdvReac Type Severity Reaction Status Date / Time dihydroergotamine Allergy Unknown Unknown Verified 02/05/24 17:09 [From Migranal] buprenorphine Allergy Rash/Hives Verified 02/05/24 17:09 gabapentin [From Neurontin] Allergy Itching/Swe Verified 02/05/24 17:09 lling latex Allergy Anaphylaxis Verified 02/05/24 17:09 naproxen [From Naprosyn] Allergy Anaphylaxis Verified 02/05/24 17:09 Penicillins Allergy Anaphylaxis Verified 02/05/24 17:09 prednisone Allergy Swelling Verified 02/05/24 17:09 quetiapine fumarate Allergy Itching, Verified 02/05/24 17:09 [From Seroquel] leg cramps rofecoxib [From Vioxx] Allergy Itching, Verified 02/05/24 17:09 leg cramps terfenadine [From Seldane] Allergy Rash/Hives Verified 02/05/24 17:09 vancomycin Allergy Rash/Hives/Swelling Verified 02/05/24 17:09 @IV site calcium carbonate [From DHEA] AdvReac Chest Pain Verified 02/05/24 17:09 calcium phosphate,dibasic AdvReac Chest Pain Verified 02/05/24 17:09 [From DHEA] clindamycin AdvReac muscle Verified 02/05/24 17:09 cramps clonidine AdvReac fast Verified 02/05/24 17:09 heartbeat, migraine dextromethorphan HBr AdvReac face/neck Verified 02/05/24 17:09 [From NyQuil] flushing diazepam [From Valium] AdvReac Nausea & Verified 02/05/24 17:09 Vomiting divalproex sodium AdvReac Nausea & Verified 02/05/24 17:09 [From Depakote] Vomiting doxylamine [From NyQuil] AdvReac face "beet Verified 02/05/24 17:09 red", elevated temp. ibuprofen [From Motrin] AdvReac abdominal Verified 02/05/24 17:09 & muscle cramps indomethacin [From Indocin] AdvReac Abdominal Verified 02/05/24 17:09 Pain,N/V ketorolac tromethamine AdvReac "built up Verified 02/05/24 17:09 [From Toradol] in system", had to be given something to reverse lorazepam [From Ativan] AdvReac Nausea & Verified 02/05/24 17:09 Vomiting memantine [From Namenda] AdvReac Itching Verified 02/05/24 17:09 metoclopramide HCl AdvReac muscle Verified 02/05/24 17:09 [From Reglan] cramps nortriptyline [From Pamelor] AdvReac Chest Pain Verified 02/05/24 17:09 prasterone (DHEA) [From DHEA] AdvReac Chest Pain Verified 02/05/24 17:09 prochlorperazine AdvReac leg Verified 02/05/24 17:09 [From Compazine] cramping propranolol AdvReac Chest Pain Verified 02/05/24 17:09 pseudoephedrine HCl AdvReac face "beet Verified 02/05/24 17:09 [From NyQuil] red", elevated temp. quetiapine [From Seroquel] AdvReac leg Verified 02/05/24 17:09 cramping sumatriptan [From Imitrex] AdvReac migrane Verified 02/05/24 17:09 sumatriptan succinate AdvReac migrane Verified 02/05/24 17:09 [From Imitrex] topiramate [From Topamax] AdvReac "built up Verified 02/05/24 17:09 in system", had to be given something to reverse tramadol AdvReac Nausea & Verified 02/05/24 17:09 Vomiting/LEG CRAMPS/HEART FLUTTERS trazodone AdvReac "built up Verified 02/05/24 17:09 in system", had to be given something to reverse zolpidem tartrate AdvReac "Became Verified 02/05/24 17:09 [From Ambien] violent with no memory" zonisamide [From Zonegran] AdvReac inability Verified 02/05/24 17:09 to eat artificial sweetener AdvReac SEVERE Uncoded 02/05/24 17:09 MIGRAINE HEADACHE prosyn AdvReac Itching Uncoded 02/05/24 17:09 Review of Systems ROS Statement: Those systems with pertinent positive or pertinent negative responses have been documented in the HPI. ROS Other: All systems not noted in ROS Statement are negative. Past Medical History Past Medical History: Hyperlipidemia, Hypertension, Seizure Disorder, Supraventricular Tachycardia (SVT) Additional Past Medical History / Comment(s): Migraines, viral meningitis x3 as a child, 1995, 2000, chronic back pain, nerve blocks (neck and occipital nerve) 08/2016 and 12/2016. Last seizure 10/10/2020, "ABSENT SEIZURES. HX TACHYCARDIA, Complex PTSD. gillean barre History of Any Multi-Drug Resistant Organisms: None Reported Past Surgical History: Appendectomy, Section, Cholecystectomy, Heart Catheterization, Heart Catheterization With Stent, Hernia Repair, Hysterectomy, Orthopedic Surgery, Tonsillectomy, Tubal Ligation Additional Past Surgical History / Comment(s): Hiatal Hernia, umbilical hernia repair, left rotator cuff repair, bilateral knee scopes, pain clinic procedures- occipital nerve block. abd exploratory sx(endometreosis), 3 abd scopes 1981, 1989, 1991), lumbar puncture. EGD. nerve biopsy, salvalry gland biospy, Port (Right side 2018, left side 2020), Esophogeal dilation(2023) Past Anesthesia/Blood Transfusion Reactions: No Reported Reaction Additional Past Anesthesia/Blood Transfusion Reaction / Comment(s): Claustrophobic Date of Last Stent Placement:: 06/03/2022 Past Psychological History: Anxiety, Bipolar, Panic Disorder, PTSD Smoking Status: Former smoker Past Alcohol Use History: None Reported Past Drug Use History: None Reported - Past Family History Mother Family Medical History: Cancer, Dementia, Diabetes Mellitus, GERD/Reflux, Hyperlipidemia, Hypertension, Thyroid Disorder, Vascular Disorder Additional Family Medical History / Comment(s): CABG x2, stents Father History Unknown: Yes Family Medical History: No Reported History General Exam - General Exam Comments Initial Comments: Visual Physical Exam Vital signs reviewed General: Well-appearing, nontoxic. Patient appears distressed and tearful. Head: Normocephalic, atraumatic Eyes: PERRLA, EOMI ENT: Airway patent Chest: Nonlabored breathing Skin: No visual rash, normal skin tone Neuro: Alert and oriented 3 Musculoskeletal: No gross abnormalities Limitations: no limitations General appearance: alert, in no apparent distress Head exam: Present: atraumatic, normocephalic, normal inspection Eye exam: Present: normal appearance, PERRL, EOMI. Absent: scleral icterus, c onjunctival injection, periorbital swelling ENT exam: Present: normal exam, mucous membranes moist Neck exam: Present: normal inspection. Absent: tenderness, meningismus, lymphadenopathy Respiratory exam: Present: normal lung sounds bilaterally. Absent: respiratory distress, wheezes, rales, rhonchi, stridor Cardiovascular Exam: Present: regular rate, normal rhythm, normal heart sounds. Absent: systolic murmur, diastolic murmur, rubs, gallop, clicks GI/Abdominal exam: Present: soft, normal bowel sounds. Absent: distended, tenderness, guarding, rebound, rigid Extremities exam: Present: normal inspection, full ROM, normal capillary refill. Absent: tenderness, pedal edema, joint swelling, calf tenderness Back exam: Present: normal inspection Neurological exam: Present: alert, oriented X3, CN II-XII intact Psychiatric exam: Present: normal affect, normal mood Skin exam: Present: warm, dry, intact, normal color. Absent: rash Course Vital Signs 02/05/24 02/05/24 17:10 23:24 Temperature 97.7 F 97.8 F Pulse Rate 96 Pulse Rate [ 99 Bilateral Sitting Radial] Respiratory 24 24 Rate Blood Pressure 114/66 118/74 O2 Sat by Pulse 100 98 Oximetry Chest Pain MDM - MDM I completed the quick note portion of this chart signed SKYLAR Hyde Was pt. sent in by a medical professional or institution (SHANTHI Silver, NETWORK SYSTEMS INTEGRATOR, urgent care, hospital, or senior care...) When possible be specific @ -No Did you speak to anyone other than the patient for history (EMS, parent, family, police, friend...)? What history was obtained from this source @ -No Did you review nursing and triage notes (agree or disagree)? Why? @ -I reviewed and agree with nursing and triage notes Were old charts reviewed (outside hosp., previous admission, EMS record, old EKG, old radiological studies, urgent care reports/EKG's, senior care records)? Report findings @ -No old charts were reviewed Differential Diagnosis (chest pain, altered mental status, abdominal pain women, abdominal pain men, vaginal bleeding, weakness, fever, dyspnea, syncope, headache, dizziness, GI bleed, back pain, seizure, CVA, palpatations, mental health, musculoskeletal)? @ -Differential Chest Pain: Stable Angina, Unstable Angina, STEMI, NSTEMI Aortic Dissection, Pneumothorax, Musculoskeletal, Esophageal Spasm GERD, Cholecystitis, Pancreatitis, Zoster, this is not meant to be an all-inclusive list. EKG interpreted by me (3pts min.). @ -Sinus rhythm without ST changes or T wave inversion. Ventricular rate 88 bpm, JERRY 141 ms, QRS duration 77 ms, QTc 427 ms. X-rays interpreted by me (1pt min.). @ -Chest x-ray shows no infiltrates, pulmonary edema or pneumothorax CT interpreted by me (1pt min.). @ -None done U/S interpreted by me (1pt. min.). @ -None done What testing was considered but not performed or refused? (CT, X-rays, U/S, labs)? Why? @ -None What meds were considered but not given or refused? Why? @ -None Did you discuss the management of the patient with other professionals (professionals i.e. , PA, NETWORK SYSTEMS INTEGRATOR, lab, RT, psych nurse, social scientist, deputy head, teacher, annual giving officer, foster care case manager)? Give summary @ -No Was smoking cessation discussed for >3mins.? @ -No Was critical care preformed (if so, how long)? @ -No Were there social determinants of health that impacted care today? How? (Homelessness, low income, unemployed, alcoholism, drug addiction, transportation, low edu. Level, literacy, decrease access to med. care, long-term, rehab)? @ -No Was there de-escalation of care discussed even if they declined (Discuss DNR or withdrawal of care, Hospice)? DNR status @ -No What co-morbidities impacted this encounter? (DM, HTN, Smoking, COPD, CAD, Cancer, CVA, ARF, Chemo, Hep., AIDS, mental health diagnosis, sleep apnea, morbid obesity)? @ -None Was patient admitted / discharged? Hospital course, mention meds given and rou te, prescriptions, significant lab abnormalities, going to OR and other pertinent info. @ -Discharged. Chest x-ray was unremarkable. Troponin was negative. Twelve- lead shows sinus rhythm without ectopy. Patient given IV Zofran for nausea Benadryl for anxiety and morphine for pain. Advised follow-up with primary care in next 24 to 48 hours. Undiagnosed new problem with uncertain prognosis? @ -No Drug Therapy requiring intensive monitoring for toxicity (Heparin, Nitro, Insulin, Cardizem)? @ -No Were any procedures done? @ -No Diagnosis/symptom? @ -Stable angina Acute, or Chronic, or Acute on Chronic? @ -Acute Uncomplicated (without systemic symptoms) or Complicated (systemic symptoms)? @ -Complicated Side effects of treatment? @ -No Exacerbation, Progression, or Severe Exacerbation? @ -No Poses a threat to life or bodily function? How? (Chest pain, [place], [place], pneumonia, PE, COPD, DKA, ARF, appy, cholecystitis, CVA, Diverticulitis, Homicidal, Suicidal, threat to staff... and all critical care pts) @ -No Disposition Clinical Impression: Stable angina pectoris Disposition: HOME SELF-CARE Condition: Good Instructions (If sedation given, give patient instructions): Chest Pain (ED) Is patient prescribed a controlled substance at d/c from ED?: No Referrals: José Reece MD [Primary Care Provider] - 1-2 days Time of Disposition: 23:43
--- NOTE | 2024-02-05 18:51 | XR ---
EXAMINATION TYPE: XR chest 2V DATE OF EXAM: 02/05/2024 COMPARISON: 01/25/2024 INDICATION: Heart racing chest pain short of breath TECHNIQUE: Frontal and lateral views of the chest are obtained. FINDINGS: The heart size is normal. The pulmonary vasculature is normal. The lungs are clear. IMPRESSION: 1. No acute pulmonary process. [facility], Workstation: [facility], 02/05/2024 6:49 PM
[2024-02-05 23:02] LABS: Basophils % (A) 0 %; Eosinophils # (A) 0.1 k/uL (0-0.7); Eosinophils % (A) 0 %; HCT 42.5 % (34.0-46.0); HGB 13.9 gm/dL (11.4-16.0); Lymphocytes # (A) 2.6 k/uL (1.0-4.8); Lymphocytes % (A) 21 %; MCH 32.4 pg (25.0-35.0); MCHC 32.7 g/dL (31.0-37.0); MCV 99.1 fL (80.0-100.0); Mean Platelet Volume 8.7; Monocytes # (A) 0.7 k/uL (0-1.0); Monocytes % (A) 6 %; Neutrophils # (A) 8.9 k/uL (1.3-7.7); Neutrophils % (A) 72 %; Platelet Count 361 k/uL (150-450); WBC 12.4 k/uL (3.8-10.6)
[2024-02-05 23:22] LABS: ALT 21 U/L (4-34); AST 29 U/L (14-36); African American GFR (CKD) >90 (>60 ml/min/1.73 sqM); Albumin 4.2 g/dL (3.5-5.0); Alkaline Phosphatase 151 U/L (38-126); Anion Gap 11 mmol/L; Blood Urea Nitrogen 7 mg/dL (7-17); Calcium 8.9 mg/dL (8.4-10.2); Carbon Dioxide 21 mmol/L (22-30); Chloride 107 mmol/L (98-107); Glucose 105 mg/dL (74-99); Magnesium 1.9 mg/dL (1.6-2.3); Non-African American GFR(CKD) 90 (>60 ml/min/1.73 sqM); Potassium 3.3 mmol/L (3.5-5.1); Sodium 139 mmol/L (137-145); Total Bilirubin 0.7 mg/dL (0.2-1.3); Total Protein 7.1 g/dL (6.3-8.2)
[2024-02-05 23:23] LABS: INR 0.9 (<1.2); Partial Thromboplastin Time 22.6 sec (22.0-30.0); Prothrombin Time 10.4 sec (10.0-12.5)
[2024-02-05] MEDS: ONDANSETRON 4 MG/2 ML VIAL IVP STA (23:30)
[2024-02-05] MEDS: MORPHINE SULFATE 4 MG/ML SYRINGE IVP STA (23:56)
[2024-02-05] MEDS: diphenhydrAMINE 50 MG/ML 1 ML VIAL IVP STA (23:56)
[2024-02-06 00:07] VITALS: BP 119/73; PULSE 97; TEMP 97.9
== END 2024-02-05 23:59 | disposition home or self-care (01) ==
LOC: EC 16:59
CPT/HCPCS: 36415; 71046; 80053; 83735; 84484; 85025; 85610; 85730; 93005; 96374; 96375; 99285

== ENCOUNTER 2024-02-15 15:40 | Emergency (ER) | payer OTHER ==
[2024-02-15 15:48] VITALS: RESP 18
--- NOTE | 2024-02-15 16:08 | ED ---
Female Urogenital HPI - General Source: patient, RN notes reviewed Mode of arrival: ambulatory Limitations: no limitations <Andreia Simon - Last Filed: 02/15/24 16:31> <Ella Quinn - Last Filed: 02/15/24 18:08> - General Chief complaint: Urogenital Stated complaint: R side kidney pain Time Seen by Provider: 02/15/24 16:06 - History of Present Illness Initial comments: 53-year-old female presented to the emergency department with for evaluation of right flank pain. Patient reports around 6 AM she started to experience right- sided flank pain. She does report mild radiation into her right lower quadrant. She has found 1030 11 AM she spiked a fever of 101 and took a Tylenol. Pain has persisted. She describes it as a sharp stabbing pain. Pain is not reproducible or worse with movement. Patient does report recent urinary frequency and nausea. Denies vomiting, hematuria, dysuria or history of kidney stones. Denies any injuries or traumas. Denies any constipation, diarrhea, chest pain, shortness of breath or peripheral edema. (Andreia Simon) - Related Data Home Medications Medication Instructions Recorded Confirmed Omeprazole [PriLOSEC] 20 mg PO HS 12/15/20 01/10/24 Thiamine [Vitamin B-1] 100 mg PO HS 01/04/21 01/10/24 Atorvastatin [Lipitor] 40 mg PO HS 07/20/21 01/10/24 DULoxetine HCL [Cymbalta] 60 mg PO HS 07/20/21 01/10/24 Atogepant [Qulipta] 60 mg PO HS 06/03/22 01/10/24 Cyclobenzaprine [Flexeril] 10 mg PO TID PRN 06/03/22 01/10/24 HYDROcodone/APAP 10-325MG [Mobile 1 tab PO TID 06/03/22 01/10/24 10-325] Aspirin 81 mg PO HS 08/29/22 01/10/24 Cyanocobalamin (Vitamin B-12) 1,000 mcg PO BID 09/07/23 01/10/24 [Vitamin B-12] Multivitamins, Thera [Multivitamin 1 tab PO HS 09/07/23 01/10/24 (formulary)] Zavegepant HCl [Zavzpret] 1 spray NASAL DAILY PRN 09/07/23 01/10/24 Potassium Chloride ER [K-Dur 10] 10 meq PO BID 12/10/23 01/10/24 QUEtiapine FUMARATE [SEROquel] 300 mg PO HS 01/10/24 01/10/24 Previous Rx's Medication Instructions Recorded Metoprolol Tartrate [Lopressor] 50 mg PO BID #60 tab 01/22/24 Allergies Allergy/AdvReac Type Severity Reaction Status Date / Time dihydroergotamine Allergy Unknown Unknown Verified 02/05/24 17:09 [From Migranal] buprenorphine Allergy Rash/Hives Verified 02/05/24 17:09 gabapentin [From Neurontin] Allergy Itching/Swe Verified 02/05/24 17:09 lling latex Allergy Anaphylaxis Verified 02/05/24 17:09 naproxen [From Naprosyn] Allergy Anaphylaxis Verified 02/05/24 17:09 Penicillins Allergy Anaphylaxis Verified 02/05/24 17:09 prednisone Allergy Swelling Verified 02/05/24 17:09 quetiapine fumarate Allergy Itching, Verified 02/05/24 17:09 [From Seroquel] leg cramps rofecoxib [From Vioxx] Allergy Itching, Verified 02/05/24 17:09 leg cramps terfenadine [From Seldane] Allergy Rash/Hives Verified 02/05/24 17:09 vancomycin Allergy Rash/Hives/Swelling Verified 02/05/24 17:09 @IV site calcium carbonate [From DHEA] AdvReac Chest Pain Verified 02/05/24 17:09 calcium phosphate,dibasic AdvReac Chest Pain Verified 02/05/24 17:09 [From DHEA] clindamycin AdvReac muscle Verified 02/05/24 17:09 cramps clonidine AdvReac fast Verified 02/05/24 17:09 heartbeat, migraine dextromethorphan HBr AdvReac face/neck Verified 02/05/24 17:09 [From NyQuil] flushing diazepam [From Valium] AdvReac Nausea & Verified 02/05/24 17:09 Vomiting divalproex sodium AdvReac Nausea & Verified 02/05/24 17:09 [From Depakote] Vomiting doxylamine [From NyQuil] AdvReac face "beet Verified 02/05/24 17:09 red", elevated temp. ibuprofen [From Motrin] AdvReac abdominal Verified 02/05/24 17:09 & muscle cramps indomethacin [From Indocin] AdvReac Abdominal Verified 02/05/24 17:09 Pain,N/V ketorolac tromethamine AdvReac "built up Verified 02/05/24 17:09 [From Toradol] in system", had to be given something to reverse lorazepam [From Ativan] AdvReac Nausea & Verified 02/05/24 17:09 Vomiting memantine [From Namenda] AdvReac Itching Verified 02/05/24 17:09 metoclopramide HCl AdvReac muscle Verified 02/05/24 17:09 [From Reglan] cramps nortriptyline [From Pamelor] AdvReac Chest Pain Verified 02/05/24 17:09 prasterone (DHEA) [From DHEA] AdvReac Chest Pain Verified 02/05/24 17:09 prochlorperazine AdvReac leg Verified 02/05/24 17:09 [From Compazine] cramping propranolol AdvReac Chest Pain Verified 02/05/24 17:09 pseudoephedrine HCl AdvReac face "beet Verified 02/05/24 17:09 [From NyQuil] red", elevated temp. quetiapine [From Seroquel] AdvReac leg Verified 02/05/24 17:09 cramping sumatriptan [From Imitrex] AdvReac migrane Verified 02/05/24 17:09 sumatriptan succinate AdvReac migrane Verified 02/05/24 17:09 [From Imitrex] topiramate [From Topamax] AdvReac "built up Verified 02/05/24 17:09 in system", had to be given something to reverse tramadol AdvReac Nausea & Verified 02/05/24 17:09 Vomiting/LEG CRAMPS/HEART FLUTTERS trazodone AdvReac "built up Verified 02/05/24 17:09 in system", had to be given something to reverse zolpidem tartrate AdvReac "Became Verified 02/05/24 17:09 [From Ambien] violent with no memory" zonisamide [From Zonegran] AdvReac inability Verified 02/05/24 17:09 to eat artificial sweetener AdvReac SEVERE Uncoded 02/05/24 17:09 MIGRAINE HEADACHE prosyn AdvReac Itching Uncoded 02/05/24 17:09 Review of Systems ROS Other: All systems not noted in ROS Statement are negative. <Andreia Simon - Last Filed: 02/15/24 16:31> ROS Other: All systems not noted in ROS Statement are negative. <Ella Quinn - Last Filed: 02/15/24 18:08> ROS Statement: Those systems with pertinent positive or pertinent negative responses have been documented in the HPI. Past Medical History Past Medical History: Hyperlipidemia, Hypertension, Seizure Disorder, Supraventricular Tachycardia (SVT) Additional Past Medical History / Comment(s): Migraines, viral meningitis x3 as a child, 1995, 2000, chronic back pain, nerve blocks (neck and occipital nerve) 08/2016 and 12/2016. Last seizure 10/10/2020, "ABSENT SEIZURES. HX TACHYCARDIA, Complex PTSD. gillean barre History of Any Multi-Drug Resistant Organisms: None Reported Past Surgical History: Appendectomy, Section, Cholecystectomy, Heart Catheterization, Heart Catheterization With Stent, Hernia Repair, Hysterectomy, Orthopedic Surgery, Tonsillectomy, Tubal Ligation Additional Past Surgical History / Comment(s): Hiatal Hernia, umbilical hernia repair, left rotator cuff repair, bilateral knee scopes, pain clinic procedures- occipital nerve block. abd exploratory sx(endometreosis), 3 abd scopes 1981, 1989, 1991), lumbar puncture. EGD. nerve biopsy, salvalry gland biospy, Port (Right side 2018, left side 2020), Esophogeal dilation(2023) Past Anesthesia/Blood Transfusion Reactions: No Reported Reaction Additional Past Anesthesia/Blood Transfusion Reaction / Comment(s): Claustrophobic Date of Last Stent Placement:: 06/03/2022 Past Psychological History: Anxiety, Bipolar, Panic Disorder, PTSD Smoking Status: Former smoker Past Alcohol Use History: None Reported Past Drug Use History: None Reported - Past Family History Mother Family Medical History: Cancer, Dementia, Diabetes Mellitus, GERD/Reflux, Hyperlipidemia, Hypertension, Thyroid Disorder, Vascular Disorder Additional Family Medical History / Comment(s): CABG x2, stents Father History Unknown: Yes Family Medical History: No Reported History <Andreia Simon - Last Filed: 02/15/24 16:31> General Exam Limitations: no limitations General appearance: alert, in no apparent distress Respiratory exam: Present: normal lung sounds bilaterally. Absent: respiratory distress, wheezes, rales, rhonchi, stridor Cardiovascular Exam: Present: regular rate, normal rhythm, normal heart sounds. Absent: systolic murmur, diastolic murmur, rubs, gallop, clicks GI/Abdominal exam: Present: soft, tenderness (RLQ), normal bowel sounds Back exam: Present: CVA tenderness (R) Neurological exam: Present: alert, oriented X3, CN II-XII intact Skin exam: Present: warm, dry, intact, normal color. Absent: rash <Andreia Simon - Last Filed: 02/15/24 16:31> Course Vital Signs 02/15/24 15:46 Temperature 97.7 F Pulse Rate 74 Respiratory 18 Rate Blood Pressure 106/73 O2 Sat by Pulse 99 Oximetry Medical Decision Making <Andreia Simon - Last Filed: 02/15/24 16:31> - Lab Data Result diagrams: 02/15/24 16:06 02/15/24 16:06 <Ella Quinn - Last Filed: 02/15/24 18:08> - Medical Decision Making Was pt. sent in by a medical professional or institution (SHANTHI Silver, DIRECTOR POST, urgent care, hospital, or penitentiary...) When possible be specific @ -No Did you speak to anyone other than the patient for history (EMS, parent, family, police, friend...)? What history was obtained from this source @ -No Did you review nursing and triage notes (agree or disagree)? Why? @ -I reviewed and agree with nursing and triage notes Were old charts reviewed (outside hosp., previous admission, EMS record, old EKG, old radiological studies, urgent care reports/EKG's, penitentiary records)? Report findings @ -No old charts were reviewed Differential Diagnosis (chest pain, altered mental status, abdominal pain women, abdominal pain men, vaginal bleeding, weakness, fever, dyspnea, syncope, headache, dizziness, GI bleed, back pain, seizure, CVA, palpatations, mental health, musculoskeletal)? @ -Differential Back Pain:Strain, zoster, cauda equina syndrome, epidural abscess, vertebral osteomyelitis, discitis, fracture, subluxation, disc herniation, DJD, spinal stenosis, dissection, AAA, pancreatitis, peptic ulcer disease, pyelonephritis, kidney stone, this is not meant to be an all-inclusive list. EKG interpreted by me (3pts min.). @ -None done X-rays interpreted by me (1pt min.). @ -None done CT interpreted by me (1pt min.). @ -None done U/S interpreted by me (1pt. min.). @ -None done What testing was considered but not performed or refused? (CT, X-rays, U/S, labs)? Why? @ -None What meds were considered but not given or refused? Why? @ -None Did you discuss the management of the patient with other professionals (pr ofessionals i.e. , PA, DIRECTOR POST, lab, RT, psych nurse, adoption social worker, transport medic, teacher, disbursing officer, caseworker protective services)? Give summary @ -No Was smoking cessation discussed for >3mins.? @ -No Was critical care preformed (if so, how long)? @ -No Were there social determinants of health that impacted care today? How? (Homelessness, low income, unemployed, alcoholism, drug addiction, transportation, low edu. Level, literacy, decrease access to med. care, nursing home, rehab)? @ -No Was there de-escalation of care discussed even if they declined (Discuss DNR or withdrawal of care, Hospice)? DNR status @ -No What co-morbidities impacted this encounter? (DM, HTN, Smoking, COPD, CAD, Cancer, CVA, ARF, Chemo, Hep., AIDS, mental health diagnosis, sleep apnea, morbid obesity)? @ -None Was patient admitted / discharged? Hospital course, mention meds given and route, prescriptions, significant lab abnormalities, going to OR and other pertinent info. @ -53-year-old female presented to the ER with a chief complaint of right flank pain. . History and physical exam completed. Vitals within normal limits. Patient in no signs of acute distress and nontoxic-appearing. Patient appears well-developed and well-nourished. Exam remarkable for right CVA tenderness and right lower quadrant abdominal pain no rebound or guarding. Normal bowel sounds. Laboratory studies will be obtained prior to imaging as patient has had numerous CT scans in the past, patient is agreeable. Patient given 1 L IV fluids, Zofran and Dilaudid for symptom control in the ER. Patient signed out to Ella Quinn PA-C at shift completion pending results and disposition. (Alfred,Andreia) Was pt. sent in by a medical professional or institution (, SHANTHI, DIRECTOR POST, urgent care, hospital, or penitentiary...) When possible be specific @ -No Did you speak to anyone other than the patient for history (EMS, parent, family, police, friend...)? What history was obtained from this source @ -No Did you review nursing and triage notes (agree or disagree)? Why? @ -I reviewed and agree with nursing and triage notes Were old charts reviewed (outside hosp., previous admission, EMS record, old EKG, old radiological studies, urgent care reports/EKG's, penitentiary records)? Report findings @ -No old charts were reviewed Differential Diagnosis (chest pain, altered mental status, abdominal pain women, abdominal pain men, vaginal bleeding, weakness, fever, dyspnea, syncope, headache, dizziness, GI bleed, back pain, seizure, CVA, palpatations, mental health, musculoskeletal)? @ -Differential Back Pain: Strain, zoster, cauda equina syndrome, epidural abscess, vertebral osteomyelitis, discitis, fracture, subluxation, disc herniation, DJD, spinal stenosis, dissection, AAA, pancreatitis, peptic ulcer disease, pyelonephritis, kidney stone, this is not meant to be an all-inclusive list. EKG interpreted by me (3pts min.). @ -None X-rays interpreted by me (1pt min.). @ -None done CT interpreted by me (1pt min.). @ -None done U/S interpreted by me (1pt. min.). @ -None done What testing was considered but not performed or refused? (CT, X-rays, U/S, labs)? Why? @ -CT abdomen pelvis considered however deferred due to negative labs and urine in the past What meds were considered but not given or refused? Why? @ -None Did you discuss the management of the patient with other professionals (professionals i.e. SHANTHI Silver, DIRECTOR POST, lab, RT, psych nurse, adoption social worker, transport medic, teacher, disbursing officer, caseworker protective services)? Give summary @ -No Was smoking cessation discussed for >3mins.? @ -No Was critical care preformed (if so, how long)? @ -No Were there social determinants of health that impacted care today? How? (Homeles sness, low income, unemployed, alcoholism, drug addiction, transportation, low edu. Level, literacy, decrease access to med. care, nursing home, rehab)? @ -No Was there de-escalation of care discussed even if they declined (Discuss DNR or withdrawal of care, Hospice)? DNR status @ -No What co-morbidities impacted this encounter? (DM, HTN, Smoking, COPD, CAD, Cancer, CVA, ARF, Chemo, Hep., AIDS, mental health diagnosis, sleep apnea, morbid obesity)? @ -None Was patient admitted / discharged? Hospital course, mention meds given and route, prescriptions, significant lab abnormalities, going to OR and other pertinent info. @ -Discharge. This is a 53-year-old female presenting with right flank pain x 1 day. Vital signs are within acceptable limits. Abdomen is soft and nontender. No CVA tenderness. Patient is provided with analgesics, antiemetics, and IV fluids. Lab work including CBC, CMP, lactic acid, lipase, amylase is unremarkable. White blood cell count stable at 4.9. Urinalysis negative for blood or bacteria. On reevaluation, patient reports significant symptom improvement. Discussed risks versus benefits of CT scans, patient opts for discharge with close observation and follow-up with PCP tomorrow. I believe it is safe to discharge patient home at this time as there is no sign of emergent etiology. Case was discussed with the ED attending Dr. Bergeron. Patient discharged in stable condition. Undiagnosed new problem with uncertain prognosis? @ -No Drug Therapy requiring intensive monitoring for toxicity (Heparin, Nitro, Insulin, Cardizem)? @ -No Were any procedures done? @ -No Diagnosis/symptom? @ -Right flank pain Acute, or Chronic, or Acute on Chronic? @ -Acute Uncomplicated (without systemic symptoms) or Complicated (systemic symptoms)? @ -Uncomplicated Side effects of treatment? @ -No Exacerbation, Progression, or Severe Exacerbation? @ -No Poses a threat to life or bodily function? How? (Chest pain, [place], [place], pneumonia, PE, COPD, DKA, ARF, appy, cholecystitis, CVA, Diverticulitis, Homicidal, Suicidal, threat to staff... and all critical care pts) @ -Not at this time (Ella Quinn) - Lab Data Lab Results 02/15/24 02/15/24 02/15/24 Range/Units 16:06 16:06 16:06 WBC 4.9 (3.8-10.6) k/uL RBC 3.34 L (3.80-5.40) m/uL Hgb 11.2 L (11.4-16.0) gm/dL Hct 34.4 (34.0-46.0) % MCV 102.9 H (80.0-100.0) fL MCH 33.5 (25.0-35.0) pg MCHC 32.5 (31.0-37.0) g/dL RDW 13.8 (11.5-15.5) % Plt Count 189 (150-450) k/uL MPV 9.0 Neutrophils % 57 % Lymphocytes % 28 % Monocytes % 7 % Eosinophils % 5 % Basophils % 0 % Neutrophils # 2.8 (1.3-7.7) k/uL Lymphocytes # 1.4 (1.0-4.8) k/uL Monocytes # 0.3 (0-1.0) k/uL Eosinophils # 0.2 (0-0.7) k/uL Basophils # 0.0 (0-0.2) k/uL Macrocytosis Slight Sodium 136 L (137-145) mmol/L Potassium 3.9 (3.5-5.1) mmol/L Chloride 109 H (98-107) mmol/L Carbon Dioxide 22 (22-30) mmol/L Anion Gap 5 mmol/L BUN 10 (7-17) mg/dL Creatinine 0.76 (0.52-1.04) mg/dL Est GFR (CKD-EPI)AfAm >90 (>60 ml/min/1.73 sqM) Est GFR (CKD-EPI)NonAf >90 (>60 ml/min/1.73 sqM) Glucose 81 (74-99) mg/dL Plasma Lactic Acid Ed (0.7-2.0) mmol/L Calcium 7.9 L (8.4-10.2) mg/dL Total Bilirubin 0.4 (0.2-1.3) mg/dL AST 32 (14-36) U/L ALT 25 (4-34) U/L Alkaline Phosphatase 71 (38-126) U/L Total Protein 5.4 L (6.3-8.2) g/dL Albumin 3.0 L (3.5-5.0) g/dL Amylase 89 (30-110) U/L Lipase 53 (23-300) U/L Urine Color Colorless Urine Appearance Clear (Clear) Urine pH 5.0 (5.0-8.0) Ur Specific Harvey 1.011 (1.001-1.035) Urine Protein Negative (Negative) Urine Glucose (UA) Negative (Negative) Urine Ketones Negative (Negative) Urine Blood Negative (Negative) Urine Nitrite Negative (Negative) Urine Bilirubin Negative (Negative) Urine Urobilinogen <2.0 (<2.0) mg/dL Ur Leukocyte Esterase Negative (Negative) 02/15/24 Range/Units 16:06 WBC (3.8-10.6) k/uL RBC (3.80-5.40) m/uL Hgb (11.4-16.0) gm/dL Hct (34.0-46.0) % MCV (80.0-100.0) fL MCH (25.0-35.0) pg MCHC (31.0-37.0) g/dL RDW (11.5-15.5) % Plt Count (150-450) k/uL MPV Neutrophils % % Lymphocytes % % Monocytes % % Eosinophils % % Basophils % % Neutrophils # (1.3-7.7) k/uL Lymphocytes # (1.0-4.8) k/uL Monocytes # (0-1.0) k/uL Eosinophils # (0-0.7) k/uL Basophils # (0-0.2) k/uL Macrocytosis Sodium (137-145) mmol/L Potassium (3.5-5.1) mmol/L Chloride (98-107) mmol/L Carbon Dioxide (22-30) mmol/L Anion Gap mmol/L BUN (7-17) mg/dL Creatinine (0.52-1.04) mg/dL Est GFR (CKD-EPI)AfAm (>60 ml/min/1.73 sqM) Est GFR (CKD-EPI)NonAf (>60 ml/min/1.73 sqM) Glucose (74-99) mg/dL Plasma Lactic Acid Ed 1.3 (0.7-2.0) mmol/L Calcium (8.4-10.2) mg/dL Total Bilirubin (0.2-1.3) mg/dL AST (14-36) U/L ALT (4-34) U/L Alkaline Phosphatase (38-126) U/L Total Protein (6.3-8.2) g/dL Albumin (3.5-5.0) g/dL Amylase (30-110) U/L Lipase (23-300) U/L Urine Color Urine Appearance (Clear) Urine pH (5.0-8.0) Ur Specific Harvey (1.001-1.035) Urine Protein (Negative) Urine Glucose (UA) (Negative) Urine Ketones (Negative) Urine Blood (Negative) Urine Nitrite (Negative) Urine Bilirubin (Negative) Urine Urobilinogen (<2.0) mg/dL Ur Leukocyte Esterase (Negative) Disposition <Andreia Simon - Last Filed: 02/15/24 16:31> Is patient prescribed a controlled substance at d/c from ED?: No Time of Disposition: 17:43 <Ella Quinn - Last Filed: 02/15/24 18:08> Clinical Impression: Right flank pain Disposition: HOME SELF-CARE Condition: Stable Instructions (If sedation given, give patient instructions): Flank Pain (ED) Additional Instructions: Follow-up with PCP tomorrow. Please return to the Emergency Department if symptoms worsen or any other concerns. Referrals: José Reece MD [Primary Care Provider] - 1-2 days
[2024-02-15] MEDS: ONDANSETRON 4 MG/2 ML VIAL IVP STA (16:26)
[2024-02-15] MEDS: HYDROmorphone 1 MG/ML 1 ML SYRINGE IVP STA ×2 (16:26→18:06)
[2024-02-15] MEDS: SODIUM CHLORIDE 0.9% 1,000 ML IV STA (16:27)
[2024-02-15 16:46] LABS: Appearance,Urine Clear (Clear); Bilirubin,Urine Negative (Negative); Blood,Urine Negative (Negative); Color,Urine Colorless; Glucose,Urine (UA) Negative (Negative); Ketones,Urine Negative (Negative); Leukocyte Esterase,Urine Negative (Negative); Nitrite,Urine Negative (Negative); Protein,Urine Negative (Negative); Specific Gravity,Urine 1.011 (1.001-1.035); Urobilinogen,Urine <2.0 mg/dL (<2.0)
[2024-02-15 16:47] LABS: Basophils % (A) 0 %; Eosinophils # (A) 0.2 k/uL (0-0.7); Eosinophils % (A) 5 %; HCT 34.4 % (34.0-46.0); HGB 11.2 gm/dL (11.4-16.0); Lymphocytes # (A) 1.4 k/uL (1.0-4.8); Lymphocytes % (A) 28 %; MCH 33.5 pg (25.0-35.0); MCHC 32.5 g/dL (31.0-37.0); MCV 102.9 fL (80.0-100.0); Macrocytosis Slight; Monocytes # (A) 0.3 k/uL (0-1.0); Monocytes % (A) 7 %; Neutrophils # (A) 2.8 k/uL (1.3-7.7); Neutrophils % (A) 57 %; Platelet Count 189 k/uL (150-450); RBC 3.34 m/uL (3.80-5.40); RDW 13.8 % (11.5-15.5); WBC 4.9 k/uL (3.8-10.6)
[2024-02-15 16:59] LABS: ALT 25 U/L (4-34); African American GFR (CKD) >90 (>60 ml/min/1.73 sqM); Amylase 89 U/L (30-110); Anion Gap 5 mmol/L; Blood Urea Nitrogen 10 mg/dL (7-17); Calcium 7.9 mg/dL (8.4-10.2); Carbon Dioxide 22 mmol/L (22-30); Chloride 109 mmol/L (98-107); Glucose 81 mg/dL (74-99); Lipase 53 U/L (23-300); Non-African American GFR(CKD) >90 (>60 ml/min/1.73 sqM); Sodium 136 mmol/L (137-145); Total Bilirubin 0.4 mg/dL (0.2-1.3); Total Protein 5.4 g/dL (6.3-8.2)
[2024-02-15 17:05] LABS: AST 32 U/L (14-36); Potassium 3.9 mmol/L (3.5-5.1)
[2024-02-15 17:06] LABS: Alkaline Phosphatase 71 U/L (38-126)
[2024-02-15] MEDS: ORPHENADRINE 30 MG/ML 2 ML VIAL IVP STA (17:28)
[2024-02-15 18:13] VITALS: BP 136/87; PULSE 67; TEMP 97.9
== END 2024-02-15 18:13 | disposition home or self-care (01) ==
LOC: EC 15:40
DX: R10.9 Unspecified abdominal pain (principal); Z91.040 Latex allergy status; Z88.8 Allergy status to other drugs, medicaments and biological substances; Z88.6 Allergy status to analgesic agent; Z88.2 Allergy status to sulfonamides; Z88.5 Allergy status to narcotic agent; Z88.1 Allergy status to other antibiotic agents; Z88.0 Allergy status to penicillin; Z87.891 Personal history of nicotine dependence
CPT/HCPCS: 99283; 96374; 96376; 96375 ×2; 96361 ×2; 36415; 80053; 82150; 83605; 83690; 85025; 81003; J2360; J2405; J1171

== ENCOUNTER 2024-02-18 17:05 | Emergency (ER) | payer OTHER ==
[2024-02-18 17:15] VITALS: RESP 18
--- NOTE | 2024-02-18 17:33 | ED ---
Back Pain HPI - General Chief Complaint: Back Pain/Injury Stated Complaint: back pain Time Seen by Provider: 02/18/24 17:20 Source: patient, RN notes reviewed Limitations: no limitations - History of Present Illness Initial Comments: This is a 53-year-old female who is presenting to the emergency department for chief complaint of right-sided CVA tenderness. Patient is well-known to emergency department. Patient states that right-sided back pain occurred 2 days ago when she presented to emergency department where laboratory studies were conducted with no acute process identified. Patient states that she is unable to follow-up with her primary care physician until 25 February. Patient has been taking muscle relaxers, Central, and Benadryl at home with minimal relief. Patient states that pain mildly wraps into the front of her abdomen. She has been having a increase in urinary frequency with decrease in output. Denies hematuria or dysuria. She endorses nausea with no emesis. Denies chest pain, shortness of breath, difficulty breathing. Denies fevers and chills. - Related Data Home Medications Medication Instructions Recorded Confirmed Omeprazole [PriLOSEC] 20 mg PO HS 12/15/20 01/10/24 Thiamine [Vitamin B-1] 100 mg PO HS 01/04/21 01/10/24 Atorvastatin [Lipitor] 40 mg PO HS 07/20/21 01/10/24 DULoxetine HCL [Cymbalta] 60 mg PO HS 07/20/21 01/10/24 Atogepant [Qulipta] 60 mg PO HS 06/03/22 01/10/24 Cyclobenzaprine [Flexeril] 10 mg PO TID PRN 06/03/22 01/10/24 HYDROcodone/APAP 10-325MG [Central 1 tab PO TID 06/03/22 01/10/24 10-325] Aspirin 81 mg PO HS 08/29/22 01/10/24 Cyanocobalamin (Vitamin B-12) 1,000 mcg PO BID 09/07/23 01/10/24 [Vitamin B-12] Multivitamins, Thera [Multivitamin 1 tab PO HS 09/07/23 01/10/24 (formulary)] Zavegepant HCl [Zavzpret] 1 spray NASAL DAILY PRN 09/07/23 01/10/24 Potassium Chloride ER [K-Dur 10] 10 meq PO BID 12/10/23 01/10/24 QUEtiapine FUMARATE [SEROquel] 300 mg PO HS 01/10/24 01/10/24 Previous Rx's Medication Instructions Recorded Metoprolol Tartrate [Lopressor] 50 mg PO BID #60 tab 01/22/24 Allergies Allergy/AdvReac Type Severity Reaction Status Date / Time dihydroergotamine Allergy Unknown Unknown Verified 02/18/24 17:14 [From Migranal] buprenorphine Allergy Rash/Hives Verified 02/18/24 17:14 gabapentin [From Neurontin] Allergy Itching/Swe Verified 02/18/24 17:14 lling latex Allergy Anaphylaxis Verified 02/18/24 17:14 naproxen [From Naprosyn] Allergy Anaphylaxis Verified 02/18/24 17:14 Penicillins Allergy Anaphylaxis Verified 02/18/24 17:14 prednisone Allergy Swelling Verified 02/18/24 17:14 quetiapine fumarate Allergy Itching, Verified 02/18/24 17:14 [From Seroquel] leg cramps rofecoxib [From Vioxx] Allergy Itching, Verified 02/18/24 17:14 leg cramps terfenadine [From Seldane] Allergy Rash/Hives Verified 02/18/24 17:14 vancomycin Allergy Rash/Hives/Swelling Verified 02/18/24 17:14 @IV site calcium carbonate [From DHEA] AdvReac Chest Pain Verified 02/18/24 17:14 calcium phosphate,dibasic AdvReac Chest Pain Verified 02/18/24 17:14 [From DHEA] clindamycin AdvReac muscle Verified 02/18/24 17:14 cramps clonidine AdvReac fast Verified 02/18/24 17:14 heartbeat, migraine dextromethorphan HBr AdvReac face/neck Verified 02/18/24 17:14 [From NyQuil] flushing diazepam [From Valium] AdvReac Nausea & Verified 02/18/24 17:14 Vomiting divalproex sodium AdvReac Nausea & Verified 02/18/24 17:14 [From Depakote] Vomiting doxylamine [From NyQuil] AdvReac face "beet Verified 02/18/24 17:14 red", elevated temp. ibuprofen [From Motrin] AdvReac abdominal Verified 02/18/24 17:14 & muscle cramps indomethacin [From Indocin] AdvReac Abdominal Verified 02/18/24 17:14 Pain,N/V ketorolac tromethamine AdvReac "built up Verified 02/18/24 17:14 [From Toradol] in system", had to be given something to reverse lorazepam [From Ativan] AdvReac Nausea & Verified 02/18/24 17:14 Vomiting memantine [From Namenda] AdvReac Itching Verified 02/18/24 17:14 metoclopramide HCl AdvReac muscle Verified 02/18/24 17:14 [From Reglan] cramps nortriptyline [From Pamelor] AdvReac Chest Pain Verified 02/18/24 17:14 prasterone (DHEA) [From DHEA] AdvReac Chest Pain Verified 02/18/24 17:14 prochlorperazine AdvReac leg Verified 02/18/24 17:14 [From Compazine] cramping propranolol AdvReac Chest Pain Verified 02/18/24 17:14 pseudoephedrine HCl AdvReac face "beet Verified 02/18/24 17:14 [From NyQuil] red", elevated temp. quetiapine [From Seroquel] AdvReac leg Verified 02/18/24 17:14 cramping sumatriptan [From Imitrex] AdvReac migrane Verified 02/18/24 17:14 sumatriptan succinate AdvReac migrane Verified 02/18/24 17:14 [From Imitrex] topiramate [From Topamax] AdvReac "built up Verified 02/18/24 17:14 in system", had to be given something to reverse tramadol AdvReac Nausea & Verified 02/18/24 17:14 Vomiting/LEG CRAMPS/HEART FLUTTERS trazodone AdvReac "built up Verified 02/18/24 17:14 in system", had to be given something to reverse zolpidem tartrate AdvReac "Became Verified 02/18/24 17:14 [From Ambien] violent with no memory" zonisamide [From Zonegran] AdvReac inability Verified 02/18/24 17:14 to eat artificial sweetener AdvReac SEVERE Uncoded 02/18/24 17:14 MIGRAINE HEADACHE prosyn AdvReac Itching Uncoded 02/18/24 17:14 Review of Systems ROS Statement: Those systems with pertinent positive or pertinent negative responses have been documented in the HPI. ROS Other: All systems not noted in ROS Statement are negative. Past Medical History Past Medical History: Hyperlipidemia, Hypertension, Seizure Disorder, Supraventricular Tachycardia (SVT) Additional Past Medical History / Comment(s): Migraines, viral meningitis x3 as a child, 1995, 2000, chronic back pain, nerve blocks (neck and occipital nerve) 08/2016 and 12/2016. Last seizure 10/10/2020, "ABSENT SEIZURES. HX TACHYCARDIA, Complex PTSD. gillean barre History of Any Multi-Drug Resistant Organisms: None Reported Past Surgical History: Appendectomy, Section, Cholecystectomy, Heart Catheterization, Heart Catheterization With Stent, Hernia Repair, Hysterectomy, Orthopedic Surgery, Tonsillectomy, Tubal Ligation Additional Past Surgical History / Comment(s): Hiatal Hernia, umbilical hernia repair, left rotator cuff repair, bilateral knee scopes, pain clinic procedures- occipital nerve block. abd exploratory sx(endometreosis), 3 abd scopes 1981, 1989, 1991), lumbar puncture. EGD. nerve biopsy, salvalry gland biospy, Port (Right side 2018, left side 2020), Esophogeal dilation(2023) Past Anesthesia/Blood Transfusion Reactions: No Reported Reaction Additional Past Anesthesia/Blood Transfusion Reaction / Comment(s): Claustrophobic Date of Last Stent Placement:: 06/03/2022 Past Psychological History: Anxiety, Bipolar, Panic Disorder, PTSD Smoking Status: Former smoker Past Alcohol Use History: None Reported Past Drug Use History: None Reported - Past Family History Mother Family Medical History: Cancer, Dementia, Diabetes Mellitus, GERD/Reflux, Hyperlipidemia, Hypertension, Thyroid Disorder, Vascular Disorder Additional Family Medical History / Comment(s): CABG x2, stents Father History Unknown: Yes Family Medical History: No Reported History General Exam Limitations: no limitations General appearance: alert, in no apparent distress Eye exam: Present: normal appearance, PERRL, EOMI. Absent: scleral icterus, conjunctival injection, periorbital swelling Neck exam: Present: normal inspection. Absent: tenderness, meningismus, lymphadenopathy Respiratory exam: Present: normal lung sounds bilaterally. Absent: respiratory distress, wheezes, rales, rhonchi, stridor Cardiovascular Exam: Present: regular rate, normal rhythm, normal heart sounds. Absent: systolic murmur, diastolic murmur, rubs, gallop, clicks GI/Abdominal exam: Present: soft, normal bowel sounds. Absent: distended, tenderness, guarding, rebound, rigid Extremities exam: Present: normal inspection, full ROM, normal capillary refill. Absent: tenderness, pedal edema, joint swelling, calf tenderness Back exam: Present: normal inspection, tenderness, CVA tenderness (R). Absent: CVA tenderness (L) Neurological exam: Present: alert, oriented X3, CN II-XII intact Skin exam: Present: warm, dry, intact, normal color. Absent: rash Course Vital Signs 02/18/24 02/18/24 17:12 19:40 Temperature 98.4 F 97.8 F Pulse Rate 81 70 Respiratory 18 18 Rate Blood Pressure 164/104 157/100 O2 Sat by Pulse 98 97 Oximetry Medical Decision Making - Medical Decision Making Was pt. sent in by a medical professional or institution (, PA, METAL SLITTER, urgent care, hospital, or residential...) When possible be specific @ -No Did you speak to anyone other than the patient for history (EMS, parent, family, police, friend...)? What history was obtained from this source @ -No Did you review nursing and triage notes (agree or disagree)? Why? @ -I reviewed and agree with nursing and triage notes Were old charts reviewed (outside hosp., previous admission, EMS record, old EKG, old radiological studies, urgent care reports/EKG's, residential records)? Report findings @ -No old charts were reviewed Differential Diagnosis (chest pain, altered mental status, abdominal pain women, abdominal pain men, vaginal bleeding, weakness, fever, dyspnea, syncope, headache, dizziness, GI bleed, back pain, seizure, CVA, palpatations, mental health, musculoskeletal)? @ -Differential Back Pain: Strain, zoster, cauda equina syndrome, epidural abscess, vertebral osteomyelitis, discitis, fracture, subluxation, disc herniation, DJD, spinal stenosis, dissection, AAA, pancreatitis, peptic ulcer disease, pyelonephritis, kidney stone, this is not meant to be an all-inclusive list. EKG interpreted by me (3pts min.). @ -none X-rays interpreted by me (1pt min.). @ -None done CT interpreted by me (1pt min.). @ -None done U/S interpreted by me (1pt. min.). @ -US kidneys ureters bladder there is no evidence for obstructive uropathy What testing was considered but not performed or refused? (CT, X-rays, U/S, labs)? Why? @ -None What meds were considered but not given or refused? Why? @ -None Did you discuss the management of the patient with other professionals (pr ofessionals i.e. , PA, METAL SLITTER, lab, RT, psych nurse, social director, real estate lawyer, teacher, commanding officer garage, casework supervisor)? Give summary @ -No Was smoking cessation discussed for >3mins.? @ -No Was critical care preformed (if so, how long)? @ -No Were there social determinants of health that impacted care today? How? (Homelessness, low income, unemployed, alcoholism, drug addiction, transportation, low edu. Level, literacy, decrease access to med. care, [facility], rehab)? @ -No Was there de-escalation of care discussed even if they declined (Discuss DNR or withdrawal of care, Hospice)? DNR status @ -No What co-morbidities impacted this encounter? (DM, HTN, Smoking, COPD, CAD, Cancer, CVA, ARF, Chemo, Hep., AIDS, mental health diagnosis, sleep apnea, morbid obesity)? @ -None Was patient admitted / discharged? Hospital course, mention meds given and route, prescriptions, significant lab abnormalities, going to OR and other pertinent info. @ -Discharge. 53-year-old female with right CVA tenderness. Patient is provided with pain medication and antinausea medication pending laboratory results and ultrasound. CBC, CMP, urinalysis, ultrasound unremarkable. Recommend that patient follows up outpatient with primary care provider for further evaluation. Discussed with Dr. Bergeron Undiagnosed new problem with uncertain prognosis? @ -No Drug Therapy requiring intensive monitoring for toxicity (Heparin, Nitro, Insulin, Cardizem)? @ -No Were any procedures done? @ -No Diagnosis/symptom? @ -flank pain Acute, or Chronic, or Acute on Chronic? @ -Acute Uncomplicated (without systemic symptoms) or Complicated (systemic symptoms)? @ -Uncomplicated Side effects of treatment? @ -No Exacerbation, Progression, or Severe Exacerbation? @ -No Poses a threat to life or bodily function? How? (Chest pain, [place], [place], pneumonia, PE, COPD, DKA, ARF, appy, cholecystitis, CVA, Diverticulitis, Homicidal, Suicidal, threat to staff... and all critical care pts) @ -No - Lab Data Result diagrams: 02/18/24 17:44 02/18/24 17:44 Lab Results 02/18/24 02/18/24 02/18/24 Range/Units 17:44 17:44 17:44 WBC 5.8 (3.8-10.6) k/uL RBC 3.55 L (3.80-5.40) m/uL Hgb 11.9 (11.4-16.0) gm/dL Hct 36.1 (34.0-46.0) % MCV 101.8 H (80.0-100.0) fL MCH 33.4 (25.0-35.0) pg MCHC 32.8 (31.0-37.0) g/dL RDW 13.8 (11.5-15.5) % Plt Count 221 (150-450) k/uL MPV 8.9 Neutrophils % 60 % Lymphocytes % 29 % Monocytes % 6 % Eosinophils % 3 % Basophils % 1 % Neutrophils # 3.4 (1.3-7.7) k/uL Lymphocytes # 1.7 (1.0-4.8) k/uL Monocytes # 0.3 (0-1.0) k/uL Eosinophils # 0.2 (0-0.7) k/uL Basophils # 0.0 (0-0.2) k/uL Macrocytosis Slight Sodium 138 (137-145) mmol/L Potassium 3.8 (3.5-5.1) mmol/L Chloride 106 (98-107) mmol/L Carbon Dioxide 30 (22-30) mmol/L Anion Gap 2 mmol/L BUN 6 L (7-17) mg/dL Creatinine 0.85 (0.52-1.04) mg/dL Est GFR (CKD-EPI)AfAm >90 (>60 ml/min/1.73 sqM) Est GFR (CKD-EPI)NonAf 80 (>60 ml/min/1.73 sqM) Glucose 73 L (74-99) mg/dL Calcium 8.5 (8.4-10.2) mg/dL Total Bilirubin 0.3 (0.2-1.3) mg/dL AST 29 (14-36) U/L ALT 27 (4-34) U/L Alkaline Phosphatase 92 (38-126) U/L Total Protein 6.0 L (6.3-8.2) g/dL Albumin 3.6 (3.5-5.0) g/dL Amylase 62 (30-110) U/L Lipase 46 (23-300) U/L Urine Color Light Brown Urine Appearance Clear (Clear) Urine pH 5.5 (5.0-8.0) Ur Specific Allen 1.002 (1.001-1.035) Urine Protein Negative (Negative) Urine Glucose (UA) Negative (Negative) Urine Ketones Negative (Negative) Urine Blood Negative (Negative) Urine Nitrite Negative (Negative) Urine Bilirubin Negative (Negative) Urine Urobilinogen <2.0 (<2.0) mg/dL Ur Leukocyte Esterase Negative (Negative) Disposition Clinical Impression: Flank pain Disposition: HOME SELF-CARE Condition: Stable Instructions (If sedation given, give patient instructions): Flank Pain (ED) Additional Instructions: Please return to the Emergency Department if symptoms worsen or any other concerns. Is patient prescribed a controlled substance at d/c from ED?: No Referrals: José Reece MD [Primary Care Provider] - 1-2 days Time of Disposition: 19:27
[2024-02-18 17:58] LABS: Appearance,Urine Clear (Clear); Bilirubin,Urine Negative (Negative); Blood,Urine Negative (Negative); Color,Urine Light Brown; Glucose,Urine (UA) Negative (Negative); Ketones,Urine Negative (Negative); Leukocyte Esterase,Urine Negative (Negative); Nitrite,Urine Negative (Negative); PH, Urine 5.5 (5.0-8.0); Protein,Urine Negative (Negative); Specific Gravity,Urine 1.002 (1.001-1.035); Urobilinogen,Urine <2.0 mg/dL (<2.0)
[2024-02-18] MEDS: ONDANSETRON 4 MG/2 ML VIAL IVP STA (18:11)
[2024-02-18] MEDS: diphenhydrAMINE 50 MG/ML 1 ML VIAL IVP STA (18:12)
[2024-02-18] MEDS: HYDROmorphone 1 MG/ML 1 ML SYRINGE IVP STA (18:12)
[2024-02-18 18:15] LABS: Basophils % (A) 1 %; Eosinophils # (A) 0.2 k/uL (0-0.7); Eosinophils % (A) 3 %; HCT 36.1 % (34.0-46.0); HGB 11.9 gm/dL (11.4-16.0); Lymphocytes # (A) 1.7 k/uL (1.0-4.8); Lymphocytes % (A) 29 %; MCH 33.4 pg (25.0-35.0); MCHC 32.8 g/dL (31.0-37.0); MCV 101.8 fL (80.0-100.0); Macrocytosis Slight; Mean Platelet Volume 8.9; Monocytes # (A) 0.3 k/uL (0-1.0); Monocytes % (A) 6 %; Neutrophils # (A) 3.4 k/uL (1.3-7.7); Neutrophils % (A) 60 %; Platelet Count 221 k/uL (150-450); RBC 3.55 m/uL (3.80-5.40); RDW 13.8 % (11.5-15.5); WBC 5.8 k/uL (3.8-10.6)
[2024-02-18 18:31] LABS: ALT 27 U/L (4-34); AST 29 U/L (14-36); African American GFR (CKD) >90 (>60 ml/min/1.73 sqM); Albumin 3.6 g/dL (3.5-5.0); Alkaline Phosphatase 92 U/L (38-126); Amylase 62 U/L (30-110); Anion Gap 2 mmol/L; Blood Urea Nitrogen 6 mg/dL (7-17); Calcium 8.5 mg/dL (8.4-10.2); Carbon Dioxide 30 mmol/L (22-30); Chloride 106 mmol/L (98-107); Glucose 73 mg/dL (74-99); Lipase 46 U/L (23-300); Non-African American GFR(CKD) 80 (>60 ml/min/1.73 sqM); Potassium 3.8 mmol/L (3.5-5.1); Sodium 138 mmol/L (137-145); Total Bilirubin 0.3 mg/dL (0.2-1.3)
--- NOTE | 2024-02-18 19:13 | US ---
EXAMINATION TYPE: US kidneys/renal and bladder DATE OF EXAM: 02/18/2024 COMPARISON: US 2020 CLINICAL INDICATION: Female, 53 years old with history of R CVA tenderness, urinary urgency; Patient states right sided flank pain and urinary urgency TECHNIQUE: Grayscale and color Doppler imaging of the bilateral kidneys and urinary bladder: FINDINGS: EXAM MEASUREMENTS: Right Kidney: 8.9 x 4.0 x 4.0 cm Left Kidney: 9.4 x 5.1 x 4.5 cm Right Kidney: No hydronephrosis or masses seen Left Kidney: No hydronephrosis or masses seen Bladder: wnl as best seen Bilateral Jets seen: left only There is no evidence for hydronephrosis at this point in time. No nephrolithiasis is seen. No rebecca s are identified. The urinary bladder is anechoic. IMPRESSION: No evidence for obstructive uropathy. [facility], Workstation: [id number], 02/18/2024 7:11 PM
[2024-02-18 19:40] VITALS: BP 157/100; PULSE 70; TEMP 97.8
== END 2024-02-18 20:04 | disposition home or self-care (01) ==
LOC: EC 17:05
DX: R10.9 Unspecified abdominal pain (principal); Z87.891 Personal history of nicotine dependence; Z88.0 Allergy status to penicillin; Z88.1 Allergy status to other antibiotic agents; Z88.2 Allergy status to sulfonamides; Z88.5 Allergy status to narcotic agent; Z88.6 Allergy status to analgesic agent; Z88.8 Allergy status to other drugs, medicaments and biological substances; Z86.73 Personal history of transient ischemic attack (TIA), and cerebral infarction without residual deficits; Z90.49 Acquired absence of other specified parts of digestive tract; Z91.040 Latex allergy status
CPT/HCPCS: 36415; 80053; 82150; 83690; 85025; 81003; 76770; 99284; 96374; 96375 ×3; J1200; J2405; J1642; J1171

== ENCOUNTER 2024-03-02 16:41 | Emergency (ER) | payer OTHER ==
[2024-03-02 17:33] LABS: Basophils % (A) 0 %; Eosinophils % (A) 1 %; HCT 40.4 % (34.0-46.0); HGB 13.1 gm/dL (11.4-16.0); Lymphocytes # (A) 1.5 k/uL (1.0-4.8); Lymphocytes % (A) 19 %; MCH 32.3 pg (25.0-35.0); MCHC 32.3 g/dL (31.0-37.0); MCV 99.9 fL (80.0-100.0); Mean Platelet Volume 8.9; Monocytes # (A) 0.5 k/uL (0-1.0); Monocytes % (A) 6 %; Neutrophils # (A) 5.7 k/uL (1.3-7.7); Neutrophils % (A) 72 %; Platelet Count 261 k/uL (150-450); RBC 4.04 m/uL (3.80-5.40); RDW 13.7 % (11.5-15.5)
[2024-03-02] MEDS: HYDROmorphone 0.5 MG/0.5 ML SYRINGE IVP STA ×2 (17:45→18:42)
--- NOTE | 2024-03-02 17:45 | ED ---
General Adult HPI - General Chief complaint: Arrhythmia/Palpitations Stated complaint: SOB/chest pain Time Seen by Provider: 03/02/24 16:57 Source: patient, RN notes reviewed Mode of arrival: wheelchair Limitations: no limitations - History of Present Illness Initial comments: This is a 53-year-old female presenting for chest pain (12/15) and shortness of breath x 5 days. Patient states describes left chest pain as "tightness" that fluctuates from 6-9. States pain radiates to left neck with worsening pain with inhalation and associated sweating. Patient also mentions numbness in her bilateral fingers. Patient endorses history of SVT with upcoming ablation scheduled for 03/16/2024. Endorses use of [place] with minimal relief. Patient denies fever, chills, abdominal pain, N/V/D, dizziness. Onset/Timin -: days(s) Location: chest Radiation: neck Severity scale (1-10): 9 Quality: other (Tightness) Consistency: constant, colicky Worsens with: other (Inhalation) Associated Symptoms: diaphoresis, shortness of breath, other (Bilateral finger numbness) Treatments Prior to Arrival: other ([place], Tylenol) - Related Data Home Medications Medication Instructions Recorded Confirmed Omeprazole [PriLOSEC] 20 mg PO HS 12/15/20 03/03/24 Thiamine [Vitamin B-1] 100 mg PO HS 01/04/21 03/03/24 Atorvastatin [Lipitor] 40 mg PO HS 07/20/21 03/03/24 DULoxetine HCL [Cymbalta] 60 mg PO HS 07/20/21 03/03/24 Atogepant [Qulipta] 60 mg PO HS 06/03/22 03/03/24 Cyclobenzaprine [Flexeril] 10 mg PO TID PRN 06/03/22 03/03/24 HYDROcodone/APAP 10-325MG [[place] 1 tab PO TID 06/03/22 03/03/24 10-325] Aspirin 81 mg PO HS 08/29/22 03/03/24 Cyanocobalamin (Vitamin B-12) 1,000 mcg PO HS 09/07/23 03/03/24 [Vitamin B-12] Multivitamins, Thera [Multivitamin 1 tab PO HS 09/07/23 03/03/24 (formulary)] Zavegepant HCl [Zavzpret] 1 spray NASAL DAILY PRN 09/07/23 03/03/24 Potassium Chloride ER [K-Dur 10] 10 meq PO BID 12/10/23 03/03/24 QUEtiapine FUMARATE [SEROquel] 300 mg PO HS 01/10/24 03/03/24 Previous Rx's Medication Instructions Recorded Metoprolol Tartrate [Lopressor] 50 mg PO BID #60 tab 01/22/24 Allergies Allergy/AdvReac Type Severity Reaction Status Date / Time dihydroergotamine Allergy Unknown Unknown Verified 03/03/24 17:55 [From Migranal] buprenorphine Allergy Rash/Hives Verified 03/03/24 17:55 gabapentin [From Neurontin] Allergy Itching/Swe Verified 03/03/24 17:55 lling latex Allergy Anaphylaxis Verified 03/03/24 17:55 naproxen [From Naprosyn] Allergy Anaphylaxis Verified 03/03/24 17:55 Penicillins Allergy Anaphylaxis Verified 03/03/24 17:55 prednisone Allergy Swelling Verified 03/03/24 17:55 quetiapine fumarate Allergy Itching, Verified 03/03/24 17:55 [From Seroquel] leg cramps rofecoxib [From Vioxx] Allergy Itching, Verified 03/03/24 17:55 leg cramps terfenadine [From Seldane] Allergy Rash/Hives Verified 03/03/24 17:55 vancomycin Allergy Rash/Hives/Swelling Verified 03/03/24 17:55 @IV site calcium carbonate [From DHEA] AdvReac Chest Pain Verified 03/03/24 17:55 calcium phosphate,dibasic AdvReac Chest Pain Verified 03/03/24 17:55 [From DHEA] clindamycin AdvReac muscle Verified 03/03/24 17:55 cramps clonidine AdvReac fast Verified 03/03/24 17:55 heartbeat, migraine dextromethorphan HBr AdvReac face/neck Verified 03/03/24 17:55 [From NyQuil] flushing diazepam [From Valium] AdvReac Nausea & Verified 03/03/24 17:55 Vomiting divalproex sodium AdvReac Nausea & Verified 03/03/24 17:55 [From Depakote] Vomiting doxylamine [From NyQuil] AdvReac face "beet Verified 03/03/24 17:55 red", elevated temp. ibuprofen [From Motrin] AdvReac abdominal Verified 03/03/24 17:55 & muscle cramps indomethacin [From Indocin] AdvReac Abdominal Verified 03/03/24 17:55 Pain,N/V ketorolac tromethamine AdvReac "built up Verified 03/03/24 17:55 [From Toradol] in system", had to be given something to reverse lorazepam [From Ativan] AdvReac Nausea & Verified 03/03/24 17:55 Vomiting memantine [From Namenda] AdvReac Itching Verified 03/03/24 17:55 metoclopramide HCl AdvReac muscle Verified 03/03/24 17:55 [From Reglan] cramps nortriptyline [From Pamelor] AdvReac Chest Pain Verified 03/03/24 17:55 prasterone (DHEA) [From DHEA] AdvReac Chest Pain Verified 03/03/24 17:55 prochlorperazine AdvReac leg Verified 03/03/24 17:55 [From Compazine] cramping propranolol AdvReac Chest Pain Verified 03/03/24 17:55 pseudoephedrine HCl AdvReac face "beet Verified 03/03/24 17:55 [From NyQuil] red", elevated temp. quetiapine [From Seroquel] AdvReac leg Verified 03/03/24 17:55 cramping sumatriptan [From Imitrex] AdvReac migrane Verified 03/03/24 17:55 sumatriptan succinate AdvReac migrane Verified 03/03/24 17:55 [From Imitrex] topiramate [From Topamax] AdvReac "built up Verified 03/03/24 17:55 in system", had to be given something to reverse tramadol AdvReac Nausea & Verified 03/03/24 17:55 Vomiting/LEG CRAMPS/HEART FLUTTERS trazodone AdvReac "built up Verified 03/03/24 17:55 in system", had to be given something to reverse zolpidem tartrate AdvReac "Became Verified 03/03/24 17:55 [From Ambien] violent with no memory" zonisamide [From Zonegran] AdvReac inability Verified 03/03/24 17:55 to eat artificial sweetener AdvReac SEVERE Uncoded 03/03/24 17:55 MIGRAINE HEADACHE prosyn AdvReac Itching Uncoded 03/03/24 17:55 Review of Systems ROS Statement: Those systems with pertinent positive or pertinent negative responses have been documented in the HPI. ROS Other: All systems not noted in ROS Statement are negative. Past Medical History Past Medical History: Hyperlipidemia, Hypertension, Seizure Disorder, Supraventricular Tachycardia (SVT) Additional Past Medical History / Comment(s): Migraines, viral meningitis x3 as a child, 1995, 2000, chronic back pain, nerve blocks (neck and occipital nerve) 08/2016 and 12/2016. Last seizure 10/10/2020, "ABSENT SEIZURES. HX TACHYCARDIA, Complex PTSD. gillean barre History of Any Multi-Drug Resistant Organisms: None Reported Past Surgical History: Appendectomy, Section, Cholecystectomy, Heart Ca theterization, Heart Catheterization With Stent, Hernia Repair, Hysterectomy, Orthopedic Surgery, Tonsillectomy, Tubal Ligation Additional Past Surgical History / Comment(s): Hiatal Hernia, umbilical hernia repair, left rotator cuff repair, bilateral knee scopes, pain clinic procedures- occipital nerve block. abd exploratory sx(endometreosis), 3 abd scopes 1981, 1989, 1991), lumbar puncture. EGD. nerve biopsy, salvalry gland biospy, Port (Right side 2018, left side 2020), Esophogeal dilation(2023) Past Anesthesia/Blood Transfusion Reactions: No Reported Reaction Additional Past Anesthesia/Blood Transfusion Reaction / Comment(s): Claustrophobic Date of Last Stent Placement:: 06/03/2022 Past Psychological History: Anxiety, Bipolar, Panic Disorder, PTSD Smoking Status: Former smoker Past Alcohol Use History: None Reported Past Drug Use History: None Reported - Past Family History Mother Family Medical History: Cancer, Dementia, Diabetes Mellitus, GERD/Reflux, Hyperlipidemia, Hypertension, Thyroid Disorder, Vascular Disorder Additional Family Medical History / Comment(s): CABG x2, stents Father History Unknown: Yes Family Medical History: No Reported History General Exam Limitations: no limitations General appearance: alert, in no apparent distress Head exam: Present: atraumatic, normocephalic, normal inspection Eye exam: Present: normal appearance, PERRL, EOMI. Absent: scleral icterus, conjunctival injection, periorbital swelling ENT exam: Present: normal exam, mucous membranes moist Neck exam: Present: normal inspection. Absent: tenderness, meningismus, lymphadenopathy Respiratory exam: Present: normal lung sounds bilaterally. Absent: respiratory distress, wheezes, rales, rhonchi, stridor Cardiovascular Exam: Present: normal rhythm, tachycardia, normal heart sounds. Absent: systolic murmur, diastolic murmur, rubs, gallop, clicks GI/Abdominal exam: Present: soft, normal bowel sounds. Absent: distended, tenderness, guarding, rebound, rigid Extremities exam: Present: normal inspection, full ROM, normal capillary refill, other (Bilateral posterior tibialis pulse +2 patient notes sensation change in bilateral fingers). Absent: tenderness, pedal edema, joint swelling, calf tenderness Back exam: Present: normal inspection Neurological exam: Present: alert, oriented X3, CN II-XII intact Psychiatric exam: Present: normal affect, normal mood Skin exam: Present: warm, dry, intact, normal color. Absent: rash Course Vital Signs 03/02/24 03/02/24 03/02/24 16:43 16:56 17:48 Temperature 97.7 F Pulse Rate 110 H 89 Pulse Rate [ 98 Radiology Therapist ] Respiratory 20 16 Rate Blood Pressure 166/118 177/102 O2 Sat by Pulse 99 99 Oximetry 03/02/24 03/02/24 18:28 19:29 Temperature 98.7 F Pulse Rate 90 100 Pulse Rate [ Radiology Therapist ] Respiratory 18 16 Rate Blood Pressure 168/125 160/98 O2 Sat by Pulse 96 98 Oximetry Medical Decision Making - Medical Decision Making Was pt. sent in by a medical professional or institution (, PA, SILK SNAPPER, urgent care, hospital, or residential...) When possible be specific @ -No Did you speak to anyone other than the patient for history (EMS, parent, family, police, friend...)? What history was obtained from this source @ -No Did you review nursing and triage notes (agree or disagree)? Why? @ -I reviewed and agree with nursing and triage notes Were old charts reviewed (outside hosp., previous admission, EMS record, old EKG, old radiological studies, urgent care reports/EKG's, residential records)? Report findings @ -No old charts were reviewed Differential Diagnosis (chest pain, altered mental status, abdominal pain women, abdominal pain men, vaginal bleeding, weakness, fever, dyspnea, syncope, headache, dizziness, GI bleed, back pain, seizure, CVA, palpatations, mental health, musculoskeletal)? @ -Differential Chest Pain: Stable Angina, Unstable Angina, STEMI, NSTEMI Aortic Dissection, Pneumothorax, Musculoskeletal, Esophageal Spasm GERD, Cholecystitis, Pancreatitis, Zoster, this is not meant to be an all-inclusive list. EKG interpreted by me (3pts min.). @ -Sinus tachycardia without ST changes or T wave inversion. Ventricular rate 100 bpm, JERRY 160 ms, QRS duration 80 ms, QTc 411 ms. X-rays interpreted by me (1pt min.). @ - chest x-ray shows no acute cardiopulmonary process. CT interpreted by me (1pt min.). @ -None done U/S interpreted by me (1pt. min.). @ -None done What testing was considered but not performed or refused? (CT, X-rays, U/S, labs)? Why? @ -None What meds were considered but not given or refused? Why? @ -None Did you discuss the management of the patient with other professionals (professionals i.e. , PA, SILK SNAPPER, lab, RT, psych nurse, social worker palliative care, relocation services specialist, teacher, staff readiness officer, binder caser)? Give summary @ -No Was smoking cessation discussed for >3mins.? @ -No Was critical care preformed (if so, how long)? @ -No Were there social determinants of health that impacted care today? How? (Homelessness, low income, unemployed, alcoholism, drug addiction, transportation, low edu. Level, literacy, decrease access to med. care, nursing home, rehab)? @ -No Was there de-escalation of care discussed even if they declined (Discuss DNR or withdrawal of care, Hospice)? DNR status @ -No What co-morbidities impacted this encounter? (DM, HTN, Smoking, COPD, CAD, Cancer, CVA, ARF, Chemo, Hep., AIDS, mental health diagnosis, sleep apnea, morbid obesity)? @ -SVT Was patient admitted / discharged? Hospital course, mention meds given and route, prescriptions, significant lab abnormalities, going to OR and other pertinent info. @ -Lab work shows hypokalemia at 3.0. Liver enzymes and BNP slightly elevated. Troponin and D-dimer were negative. chest x-ray shows no acute cardiopulmonary process. IV Dilaudid given for pain p.o. potassium chloride given for hypo- kalemia. Patient discharged and advised follow-up with primary care in next 24 to 48 hours. Undiagnosed new problem with uncertain prognosis? @ -No Drug Therapy requiring intensive monitoring for toxicity (Heparin, Nitro, Insulin, Cardizem)? @ -No Were any procedures done? @ -No Diagnosis/symptom? @ -Hypokalemia Acute, or Chronic, or Acute on Chronic? @ -Acute Uncomplicated (without systemic symptoms) or Complicated (systemic symptoms)? @ -Complicated Side effects of treatment? @ -No Exacerbation, Progression, or Severe Exacerbation? @ -No Poses a threat to life or bodily function? How? (Chest pain, [place], HI, pneumonia, PE, COPD, DKA, ARF, appy, cholecystitis, CVA, Diverticulitis, Homicidal, S uicidal, threat to staff... and all critical care pts) @ -Hypokalemia - Lab Data Result diagrams: 03/02/24 17:21 03/02/24 17:21 Lab Results 03/02/24 03/02/24 03/02/24 Range/Units 17:21 17:21 17:21 WBC 8.0 (3.8-10.6) k/uL RBC 4.04 (3.80-5.40) m/uL Hgb 13.1 (11.4-16.0) gm/dL Hct 40.4 (34.0-46.0) % MCV 99.9 (80.0-100.0) fL MCH 32.3 (25.0-35.0) pg MCHC 32.3 (31.0-37.0) g/dL RDW 13.7 (11.5-15.5) % Plt Count 261 (150-450) k/uL MPV 8.9 Neutrophils % 72 % Lymphocytes % 19 % Monocytes % 6 % Eosinophils % 1 % Basophils % 0 % Neutrophils # 5.7 (1.3-7.7) k/uL Lymphocytes # 1.5 (1.0-4.8) k/uL Monocytes # 0.5 (0-1.0) k/uL Eosinophils # 0.0 (0-0.7) k/uL Basophils # 0.0 (0-0.2) k/uL PT 11.0 (10.0-12.5) sec INR 1.0 (<1.2) APTT 37.2 H (22.0-30.0) sec D-Dimer 0.27 (<0.60) mg/L FEU Sodium 135 L (137-145) mmol/L Potassium 3.0 L (3.5-5.1) mmol/L Chloride 103 (98-107) mmol/L Carbon Dioxide 26 (22-30) mmol/L Anion Gap 6 mmol/L BUN 7 (7-17) mg/dL Creatinine 0.77 (0.52-1.04) mg/dL Est GFR (CKD-EPI)AfAm >90 (>60 ml/min/1.73 sqM) Est GFR (CKD-EPI)NonAf 90 (>60 ml/min/1.73 sqM) Glucose 103 H (74-99) mg/dL Calcium 8.9 (8.4-10.2) mg/dL Magnesium 1.8 (1.6-2.3) mg/dL Total Bilirubin 0.6 (0.2-1.3) mg/dL AST 40 H (14-36) U/L ALT 26 (4-34) U/L Alkaline Phosphatase 141 H (38-126) U/L Troponin I (0.000-0.034) ng/mL NT-Pro-B Natriuret Pep 698 pg/mL Total Protein 6.7 (6.3-8.2) g/dL Albumin 4.1 (3.5-5.0) g/dL 03/02/24 Range/Units 17:21 WBC (3.8-10.6) k/uL RBC (3.80-5.40) m/uL Hgb (11.4-16.0) gm/dL Hct (34.0-46.0) % MCV (80.0-100.0) fL MCH (25.0-35.0) pg MCHC (31.0-37.0) g/dL RDW (11.5-15.5) % Plt Count (150-450) k/uL MPV Neutrophils % % Lymphocytes % % Monocytes % % Eosinophils % % Basophils % % Neutrophils # (1.3-7.7) k/uL Lymphocytes # (1.0-4.8) k/uL Monocytes # (0-1.0) k/uL Eosinophils # (0-0.7) k/uL Basophils # (0-0.2) k/uL PT (10.0-12.5) sec INR (<1.2) APTT (22.0-30.0) sec D-Dimer (<0.60) mg/L FEU Sodium (137-145) mmol/L Potassium (3.5-5.1) mmol/L Chloride (98-107) mmol/L Carbon Dioxide (22-30) mmol/L Anion Gap mmol/L BUN (7-17) mg/dL Creatinine (0.52-1.04) mg/dL Est GFR (CKD-EPI)AfAm (>60 ml/min/1.73 sqM) Est GFR (CKD-EPI)NonAf (>60 ml/min/1.73 sqM) Glucose (74-99) mg/dL Calcium (8.4-10.2) mg/dL Magnesium (1.6-2.3) mg/dL Total Bilirubin (0.2-1.3) mg/dL AST (14-36) U/L ALT (4-34) U/L Alkaline Phosphatase (38-126) U/L Troponin I <0.012 (0.000-0.034) ng/mL NT-Pro-B Natriuret Pep pg/mL Total Protein (6.3-8.2) g/dL Albumin (3.5-5.0) g/dL Disposition Clinical Impression: Hypokalemia Disposition: HOME SELF-CARE Condition: Good Instructions (If sedation given, give patient instructions): Hypokalemia (ED) Is patient prescribed a controlled substance at d/c from ED?: No Referrals: José Reece MD [Primary Care Provider] - 1-2 days Time of Disposition: 18:36
[2024-03-02 18:02] LABS: Partial Thromboplastin Time 37.2 sec (22.0-30.0)
--- NOTE | 2024-03-02 18:11 | XR ---
EXAMINATION TYPE: XR chest 2V DATE OF EXAM: 03/02/2024 5:27 PM COMPARISON: Previous chest radiograph 02/05/2024. CLINICAL INDICATION: Female, 53 years old with history of Chest Pain; [facility] TECHNIQUE: XR chest 2V Frontal and lateral views of the chest. FINDINGS: Lungs/Pleura: There is no evidence of pleural effusion, focal consolidation, or pneumothorax. Pulmonary vascularity: Unremarkable. Heart/mediastinum: Cardiomediastinal silhouette is unremarkable. Musculoskeletal: No acute osseous pathology. Other findings: Left chest wall port catheter with distal catheter tip terminating near the cavoatria l junction. IMPRESSION: No acute cardiopulmonary disease/process. [facility], , 03/02/2024 6:08 PM
[2024-03-02 18:21] LABS: ALT 26 U/L (4-34); AST 40 U/L (14-36); African American GFR (CKD) >90 (>60 ml/min/1.73 sqM); Albumin 4.1 g/dL (3.5-5.0); Alkaline Phosphatase 141 U/L (38-126); Anion Gap 6 mmol/L; Blood Urea Nitrogen 7 mg/dL (7-17); Calcium 8.9 mg/dL (8.4-10.2); Carbon Dioxide 26 mmol/L (22-30); Chloride 103 mmol/L (98-107); Glucose 103 mg/dL (74-99); Magnesium 1.8 mg/dL (1.6-2.3); Non-African American GFR(CKD) 90 (>60 ml/min/1.73 sqM); Sodium 135 mmol/L (137-145); Total Bilirubin 0.6 mg/dL (0.2-1.3); Total Protein 6.7 g/dL (6.3-8.2)
[2024-03-02 18:29] LABS: NT-Pro-B-Type Natriuretic Pept 698 pg/mL
[2024-03-02] MEDS: POTASSIUM CHLORIDE ER 20 MEQ TAB.ER PO STA (18:42)
[2024-03-02 19:36] VITALS: BP 160/98; PULSE 100; RESP 16; TEMP 98.7
== END 2024-03-02 19:31 | disposition home or self-care (01) ==
LOC: EC 16:41
DX: E87.6 Hypokalemia (principal); Z87.891 Personal history of nicotine dependence; Z88.1 Allergy status to other antibiotic agents; Z88.0 Allergy status to penicillin; Z88.2 Allergy status to sulfonamides; Z88.5 Allergy status to narcotic agent; Z88.6 Allergy status to analgesic agent; Z88.8 Allergy status to other drugs, medicaments and biological substances; Z91.040 Latex allergy status
CPT/HCPCS: 36415; 93005; 85379; 83880; 80053; 83735; 84484; 85025; 85610; 85730; 71046; 99285; 96374; 96375; 96376; J1642; J1171

== ENCOUNTER 2024-03-03 16:47 | Emergency (ER) | payer OTHER ==
--- NOTE | 2024-03-03 17:28 | ED ---
General Adult HPI - General Chief complaint: Chest Pain Stated complaint: Chest pressure Time Seen by Provider: 03/03/24 16:50 Source: patient Mode of arrival: EMS Limitations: no limitations - History of Present Illness Initial comments: Dictation was produced using [employer] dictation software. please excuse any grammatical, word or spelling errors. Chief Complaint: 53-year-old female with palpitations History of Present Illness: Patient is a 53-year-old female presents to the emergency department palpitations. Patient well-known to the emergency department for multiple visitations for chest and migraine complaints. Came in via EMS from home for palpitations. States that associated with chest pressure cold sweats and tingling to all the fingers. Patient was just here yesterday evaluated for similar symptoms that were all found to be unremarkable she was discharged. She called her miner today told her she should probably come to the ER to be evaluated. The ROS documented in this emergency department record has been reviewed and confirmed by me. Those systems with pertinent positive or negative responses have been documented in the HPI. All other systems are other negative and/or noncontributory. - Related Data Home Medications Medication Instructions Recorded Confirmed Omeprazole [PriLOSEC] 20 mg PO HS 12/15/20 03/03/24 Thiamine [Vitamin B-1] 100 mg PO HS 01/04/21 03/03/24 Atorvastatin [Lipitor] 40 mg PO HS 07/20/21 03/03/24 DULoxetine HCL [Cymbalta] 60 mg PO HS 07/20/21 03/03/24 Atogepant [Qulipta] 60 mg PO HS 06/03/22 03/03/24 Cyclobenzaprine [Flexeril] 10 mg PO TID PRN 06/03/22 03/03/24 HYDROcodone/APAP 10-325MG [[place] 1 tab PO TID 06/03/22 03/03/24 10-325] Aspirin 81 mg PO HS 08/29/22 03/03/24 Cyanocobalamin (Vitamin B-12) 1,000 mcg PO HS 09/07/23 03/03/24 [Vitamin B-12] Multivitamins, Thera [Multivitamin 1 tab PO HS 09/07/23 03/03/24 (formulary)] Zavegepant HCl [Zavzpret] 1 spray NASAL DAILY PRN 09/07/23 03/03/24 Potassium Chloride ER [K-Dur 10] 10 meq PO BID 12/10/23 03/03/24 QUEtiapine FUMARATE [SEROquel] 300 mg PO HS 01/10/24 03/03/24 Previous Rx's Medication Instructions Recorded Metoprolol Tartrate [Lopressor] 50 mg PO BID #60 tab 01/22/24 Allergies Allergy/AdvReac Type Severity Reaction Status Date / Time dihydroergotamine Allergy Unknown Unknown Verified 03/03/24 17:55 [From Migranal] buprenorphine Allergy Rash/Hives Verified 03/03/24 17:55 gabapentin [From Neurontin] Allergy Itching/Swe Verified 03/03/24 17:55 lling latex Allergy Anaphylaxis Verified 03/03/24 17:55 naproxen [From Naprosyn] Allergy Anaphylaxis Verified 03/03/24 17:55 Penicillins Allergy Anaphylaxis Verified 03/03/24 17:55 prednisone Allergy Swelling Verified 03/03/24 17:55 quetiapine fumarate Allergy Itching, Verified 03/03/24 17:55 [From Seroquel] leg cramps rofecoxib [From Vioxx] Allergy Itching, Verified 03/03/24 17:55 leg cramps terfenadine [From Seldane] Allergy Rash/Hives Verified 03/03/24 17:55 vancomycin Allergy Rash/Hives/Swelling Verified 03/03/24 17:55 @IV site calcium carbonate [From DHEA] AdvReac Chest Pain Verified 03/03/24 17:55 calcium phosphate,dibasic AdvReac Chest Pain Verified 03/03/24 17:55 [From DHEA] clindamycin AdvReac muscle Verified 03/03/24 17:55 cramps clonidine AdvReac fast Verified 03/03/24 17:55 heartbeat, migraine dextromethorphan HBr AdvReac face/neck Verified 03/03/24 17:55 [From NyQuil] flushing diazepam [From Valium] AdvReac Nausea & Verified 03/03/24 17:55 Vomiting divalproex sodium AdvReac Nausea & Verified 03/03/24 17:55 [From Depakote] Vomiting doxylamine [From NyQuil] AdvReac face "beet Verified 03/03/24 17:55 red", elevated temp. ibuprofen [From Motrin] AdvReac abdominal Verified 03/03/24 17:55 & muscle cramps indomethacin [From Indocin] AdvReac Abdominal Verified 03/03/24 17:55 Pain,N/V ketorolac tromethamine AdvReac "built up Verified 03/03/24 17:55 [From Toradol] in system", had to be given something to reverse lorazepam [From Ativan] AdvReac Nausea & Verified 03/03/24 17:55 Vomiting memantine [From Namenda] AdvReac Itching Verified 03/03/24 17:55 metoclopramide HCl AdvReac muscle Verified 03/03/24 17:55 [From Reglan] cramps nortriptyline [From Pamelor] AdvReac Chest Pain Verified 03/03/24 17:55 prasterone (DHEA) [From DHEA] AdvReac Chest Pain Verified 03/03/24 17:55 prochlorperazine AdvReac leg Verified 03/03/24 17:55 [From Compazine] cramping propranolol AdvReac Chest Pain Verified 03/03/24 17:55 pseudoephedrine HCl AdvReac face "beet Verified 03/03/24 17:55 [From NyQuil] red", elevated temp. quetiapine [From Seroquel] AdvReac leg Verified 03/03/24 17:55 cramping sumatriptan [From Imitrex] AdvReac migrane Verified 03/03/24 17:55 sumatriptan succinate AdvReac migrane Verified 03/03/24 17:55 [From Imitrex] topiramate [From Topamax] AdvReac "built up Verified 03/03/24 17:55 in system", had to be given something to reverse tramadol AdvReac Nausea & Verified 03/03/24 17:55 Vomiting/LEG CRAMPS/HEART FLUTTERS trazodone AdvReac "built up Verified 03/03/24 17:55 in system", had to be given something to reverse zolpidem tartrate AdvReac "Became Verified 03/03/24 17:55 [From Ambien] violent with no memory" zonisamide [From Zonegran] AdvReac inability Verified 03/03/24 17:55 to eat artificial sweetener AdvReac SEVERE Uncoded 03/03/24 17:55 MIGRAINE HEADACHE prosyn AdvReac Itching Uncoded 03/03/24 17:55 Review of Systems ROS Statement: Those systems with pertinent positive or pertinent negative responses have been documented in the HPI. ROS Other: All systems not noted in ROS Statement are negative. Past Medical History Past Medical History: Hyperlipidemia, Hypertension, Seizure Disorder, Supraventricular Tachycardia (SVT) Additional Past Medical History / Comment(s): Migraines, viral meningitis x3 as a child, 1995, 2000, chronic back pain, nerve blocks (neck and occipital nerve) 08/2016 and 12/2016. Last seizure 10/10/2020, "ABSENT SEIZURES. HX TACHYCARDIA, Complex PTSD. gillean barre History of Any Multi-Drug Resistant Organisms: None Reported Past Surgical History: Appendectomy, Section, Cholecystectomy, Heart Catheterization, Heart Catheterization With Stent, Hernia Repair, Hysterectomy, Orthopedic Surgery, Tonsillectomy, Tubal Ligation Additional Past Surgical History / Comment(s): Hiatal Hernia, umbilical hernia repair, left rotator cuff repair, bilateral knee scopes, pain clinic procedures-occipital nerve block. abd exploratory sx(endometreosis), 3 abd scopes 1981, 1989, 1991), lumbar puncture. EGD. nerve biopsy, salvalry gland biospy, Port (Right side 2018, left side 2020), Esophogeal dilation(2023) Past Anesthesia/Blood Transfusion Reactions: No Reported Reaction Additional Past Anesthesia/Blood Transfusion Reaction / Comment(s): Claustro phobic Date of Last Stent Placement:: 06/03/2022 Past Psychological History: Anxiety, Bipolar, Panic Disorder, PTSD Smoking Status: Former smoker Past Alcohol Use History: None Reported Past Drug Use History: None Reported - Past Family History Mother Family Medical History: Cancer, Dementia, Diabetes Mellitus, GERD/Reflux, Hyperlipidemia, Hypertension, Thyroid Disorder, Vascular Disorder Additional Family Medical History / Comment(s): CABG x2, stents Father History Unknown: Yes Family Medical History: No Reported History General Exam - General Exam Comments Initial Comments: PHYSICAL EXAM: General Impression: Alert and oriented x3, not in acute distress HEENT: Normocephalic atraumatic, extra-ocular movements intact, pupils equal and reactive to light bilaterally, mucous membranes moist. Cardiovascular: Heart regular rate and rhythm Chest: Able to complete full sentences, no retractions, no tachypnea Abdomen: abdomen soft, non-tender, non-distended, no organomegaly Musculoskeletal: Pulses present and equal in all extremities, no peripheral edema Motor: no focal deficits noted Neurological: CN II-XII grossly intact, no focal motor or sensory deficits noted Skin: Intact with no visualized rashes Psych: Normal affect and mood Limitations: no limitations Course Vital Signs 03/03/24 03/03/24 16:49 18:00 Temperature 98.6 F 98.4 F Pulse Rate 95 106 H Respiratory 16 16 Rate Blood Pressure 170/119 170/126 O2 Sat by Pulse 97 98 Oximetry EKG Findings - EKG Comments: EKG Findings:: My EKG interpretation: Ventricular rate 95, sinus rhythm,. 162, QRS 82, QTc 349. No UT prolongation, no QTC prolongation, no ST or T-wave changes noted. Overall, this EKG is unremarkable Medical Decision Making - Medical Decision Making Was pt. sent in by a medical professional or institution (, PA, WOODWORKING MACHINE OFFBEARER, urgent care, hospital, or usp...) When possible be specific @ -No Did you speak to anyone other than the patient for history (EMS, parent, family, police, friend...)? What history was obtained from this source @ -No Did you review nursing and triage notes (agree or disagree)? Why? @ -I reviewed and agree with nursing and triage notes Were old charts reviewed (outside hosp., previous admission, EMS record, old EKG, old radiological studies, urgent care reports/EKG's, usp records)? Report findings @ -No old charts were reviewed Differential Diagnosis (chest pain, altered mental status, abdominal pain women, abdominal pain men, vaginal bleeding, musculoskeletal, weakness, fever, dyspnea, syncope, headache, dizziness, GI bleed, back pain, seizure, CVA, palpatations, mental health)? @ - Differential Palpitations: Ventricular arrhythmias, atrial arrhythmias, myocardial infarction, anemia, thyrotoxicosis, electrolyte imbalance, hypokalemia, pulmonary embolism, pulmonary disease, drugs, alcohol, anxiety, stress.... This is not meant to be an all-inclusive list. EKG interpreted by me (3pts min.). @ -See above X-rays interpreted by me (1pt min.). @ -Chest x-ray shows no acute processes CT interpreted by me (1pt min.). @ -None done U/S interpreted by me (1pt. min.). @ -None done What testing was considered but not performed or refused? (CT, X-rays, U/S, labs)? Why? @ -None What meds were considered but not given or refused? Why? @ -None Was smoking cessation discussed for >3mins.? @ -No Were there social determinants of health that impacted care today? How? (Homelessness, low income, unemployed, alcoholism, drug addiction, transportation, low edu. Level, literacy, decrease access to med. care, prison, rehab)? @ -No Was there de-escalation of care discussed even if they declined (Discuss DNR or withdrawal of care, Hospice)? DNR status @ -No What co-morbidities impacted this encounter? (DM, HTN, Smoking, COPD, CAD, Cancer, CVA, ARF, Chemo, Hep., AIDS, mental health diagnosis, sleep apnea, mor bid obesity)? @ -SVT Was patient admitted / discharged? Hospital course, mention meds given and rou te, prescriptions, significant lab abnormalities, going to OR and other pertinent info. @ -53-year-old female presents to the emergency department palpitations. Patient well-known to emergency department had multiple workups with no significant abnormalities. She does follow-up with cardiology outpatient. Vital signs stable. Laboratory evaluation obtained. Hypokalemic 2.7. Rest of labs within acceptable limits. Patient given potassium replacement. No bradycardia or widened QRS or any other EKG changes to suggest hypokalemia induced cardiac issues. Patient given potassium replacement. Observed emergency department discharged told to follow-up with her miner. Did you discuss the management of the patient with other professionals (professionals i.e. , PA, WOODWORKING MACHINE OFFBEARER, lab, RT, psych nurse, group social worker, auditor in charge, teacher, postal sorting officer, director case management)? Give summary @ -No Was critical care preformed (if so, how long)? @ -No Undiagnosed new problem with uncertain prognosis? @ -No Drug Therapy requiring intensive monitoring for toxicity (Heparin, Nitro, Insulin, Cardizem)? @ -No Were any procedures done? @ -No Diagnosis/symptom? Acute, or Chronic, or Acute on Chronic? Uncomplicated (without systemic symptoms) or Complicated (systemic symptoms)? @ -Palpitations, hypokalemia Side effects of treatment? @ -No Exacerbation, Progression, or Severe Exacerbation? @ -No Poses a threat to life or bodily function? How? (Chest pain, [place], [place], pneumonia, PE, COPD, DKA, ARF, appy, cholecystitis, CVA, Diverticulitis, Homicidal, Suicidal, threat to staff... and all critical care pts) @ -yes - Lab Data Result diagrams: 03/03/24 17:22 03/03/24 17:22 Lab Results 03/03/24 03/03/24 03/03/24 Range/Units 17:22 17:22 17:22 WBC 8.5 (3.8-10.6) k/uL RBC 4.24 (3.80-5.40) m/uL Hgb 14.2 (11.4-16.0) gm/dL Hct 43.5 (34.0-46.0) % MCV 102.4 H (80.0-100.0) fL MCH 33.4 (25.0-35.0) pg MCHC 32.6 (31.0-37.0) g/dL RDW 13.3 (11.5-15.5) % Plt Count 288 (150-450) k/uL MPV 8.3 Neutrophils % 76 % Lymphocytes % 15 % Monocytes % 6 % Eosinophils % 0 % Basophils % 0 % Neutrophils # 6.5 (1.3-7.7) k/uL Lymphocytes # 1.2 (1.0-4.8) k/uL Monocytes # 0.6 (0-1.0) k/uL Eosinophils # 0.0 (0-0.7) k/uL Basophils # 0.0 (0-0.2) k/uL Macrocytosis Slight PT 11.5 (10.0-12.5) sec INR 1.1 (<1.2) APTT 196.0 H* (22.0-30.0) sec Sodium 138 (137-145) mmol/L Potassium 2.7 L* (3.5-5.1) mmol/L Chloride 106 (98-107) mmol/L Carbon Dioxide 24 (22-30) mmol/L Anion Gap 8 mmol/L BUN 5 L (7-17) mg/dL Creatinine 0.72 (0.52-1.04) mg/dL Est GFR (CKD-EPI)AfAm >90 (>60 ml/min/1.73 sqM) Est GFR (CKD-EPI)NonAf >90 (>60 ml/min/1.73 sqM) Glucose 127 H (74-99) mg/dL Calcium 8.7 (8.4-10.2) mg/dL Magnesium 1.8 (1.6-2.3) mg/dL Total Bilirubin 0.5 (0.2-1.3) mg/dL AST 35 (14-36) U/L ALT 25 (4-34) U/L Alkaline Phosphatase 131 H (38-126) U/L Troponin I (0.000-0.034) ng/mL Total Protein 6.9 (6.3-8.2) g/dL Albumin 4.2 (3.5-5.0) g/dL 03/03/24 Range/Units 17:22 WBC (3.8-10.6) k/uL RBC (3.80-5.40) m/uL Hgb (11.4-16.0) gm/dL Hct (34.0-46.0) % MCV (80.0-100.0) fL MCH (25.0-35.0) pg MCHC (31.0-37.0) g/dL RDW (11.5-15.5) % Plt Count (150-450) k/uL MPV Neutrophils % % Lymphocytes % % Monocytes % % Eosinophils % % Basophils % % Neutrophils # (1.3-7.7) k/uL Lymphocytes # (1.0-4.8) k/uL Monocytes # (0-1.0) k/uL Eosinophils # (0-0.7) k/uL Basophils # (0-0.2) k/uL Macrocytosis PT (10.0-12.5) sec INR (<1.2) APTT (22.0-30.0) sec Sodium (137-145) mmol/L Potassium (3.5-5.1) mmol/L Chloride (98-107) mmol/L Carbon Dioxide (22-30) mmol/L Anion Gap mmol/L BUN (7-17) mg/dL Creatinine (0.52-1.04) mg/dL Est GFR (CKD-EPI)AfAm (>60 ml/min/1.73 sqM) Est GFR (CKD-EPI)NonAf (>60 ml/min/1.73 sqM) Glucose (74-99) mg/dL Calcium (8.4-10.2) mg/dL Magnesium (1.6-2.3) mg/dL Total Bilirubin (0.2-1.3) mg/dL AST (14-36) U/L ALT (4-34) U/L Alkaline Phosphatase (38-126) U/L Troponin I <0.012 (0.000-0.034) ng/mL Total Protein (6.3-8.2) g/dL Albumin (3.5-5.0) g/dL Disposition Clinical Impression: Hypokalemia Disposition: HOME SELF-CARE Condition: Fair Instructions (If sedation given, give patient instructions): Hypokalemia (ED) Is patient prescribed a controlled substance at d/c from ED?: No Referrals: José Reece MD [Primary Care Provider] - 1-2 days Time of Disposition: 18:51
[2024-03-03 17:33] LABS: Basophils % (A) 0 %; Eosinophils % (A) 0 %; HCT 43.5 % (34.0-46.0); HGB 14.2 gm/dL (11.4-16.0); Lymphocytes # (A) 1.2 k/uL (1.0-4.8); Lymphocytes % (A) 15 %; MCH 33.4 pg (25.0-35.0); MCHC 32.6 g/dL (31.0-37.0); MCV 102.4 fL (80.0-100.0); Macrocytosis Slight; Mean Platelet Volume 8.3; Monocytes # (A) 0.6 k/uL (0-1.0); Monocytes % (A) 6 %; Neutrophils # (A) 6.5 k/uL (1.3-7.7); Neutrophils % (A) 76 %; Platelet Count 288 k/uL (150-450); RBC 4.24 m/uL (3.80-5.40); RDW 13.3 % (11.5-15.5); WBC 8.5 k/uL (3.8-10.6)
[2024-03-03] MEDS: ACETAMINOPHEN TAB 500 MG TAB PO STA (17:45)
--- NOTE | 2024-03-03 17:56 | XR ---
EXAMINATION TYPE: XR chest 2V DATE OF EXAM: 03/03/2024 5:45 PM COMPARISON: Chest radiographs from 03/02/2024 CLINICAL INDICATION: Female, 53 years old with history of Chest Pain; [facility] TECHNIQUE: XR chest 2V Frontal and lateral views of the chest. FINDINGS: Lungs/Pleura: There is no evidence of pleural effusion, focal consolidation, or pneumothorax. Pulmonary vascularity: Unremarkable. Heart/mediastinum: Cardiomediastinal silhouette is unremarkable. Musculoskeletal: No acute osseous pathology. Other findings: None Lines/Tubes: [id number] projecting over the left hemithorax with distal tip at the cavoatrial junction. IMPRESSION: No acute cardiopulmonary disease/process. [facility], , 03/03/2024 5:54 PM
[2024-03-03 18:05] LABS: INR 1.1 (<1.2); Prothrombin Time 11.5 sec (10.0-12.5)
[2024-03-03] MEDS: ONDANSETRON 4 MG/2 ML VIAL IVP STA (18:19)
[2024-03-03 18:35] LABS: ALT 25 U/L (4-34); AST 35 U/L (14-36); African American GFR (CKD) >90 (>60 ml/min/1.73 sqM); Albumin 4.2 g/dL (3.5-5.0); Alkaline Phosphatase 131 U/L (38-126); Anion Gap 8 mmol/L; Blood Urea Nitrogen 5 mg/dL (7-17); Calcium 8.7 mg/dL (8.4-10.2); Carbon Dioxide 24 mmol/L (22-30); Chloride 106 mmol/L (98-107); Glucose 127 mg/dL (74-99); Magnesium 1.8 mg/dL (1.6-2.3); Non-African American GFR(CKD) >90 (>60 ml/min/1.73 sqM); Sodium 138 mmol/L (137-145); Total Bilirubin 0.5 mg/dL (0.2-1.3); Total Protein 6.9 g/dL (6.3-8.2)
[2024-03-03 18:38] LABS: Potassium 2.7 mmol/L (3.5-5.1)
[2024-03-03] MEDS: POTASSIUM CHLORIDE ER 20 MEQ TAB.ER PO STA (18:56)
[2024-03-03] MEDS: POTASSIUM CHLORIDE 40 MEQ in WATER FOR INJECTION 1 100ML.BAG IVPB STA (18:59)
[2024-03-03] MEDS: HYDROmorphone 1 MG/ML 1 ML SYRINGE IVP STA (19:59)
[2024-03-03 22:17] VITALS: BP 135/112; PULSE 94; RESP 18; TEMP 97.7
== END 2024-03-03 22:17 | disposition home or self-care (01) ==
LOC: EC 16:47
DX: E87.6 Hypokalemia (principal); I47.10 Supraventricular tachycardia, unspecified; Z87.891 Personal history of nicotine dependence; Z88.0 Allergy status to penicillin; Z88.1 Allergy status to other antibiotic agents; Z88.2 Allergy status to sulfonamides; Z88.5 Allergy status to narcotic agent; Z88.6 Allergy status to analgesic agent; Z88.8 Allergy status to other drugs, medicaments and biological substances; Z91.040 Latex allergy status
CPT/HCPCS: 36415; 93005; 80053; 83735; 84484; 85025; 85610; 85730; 71046; 99285; 96365; 96375; J3480; J2405; J1171; J1642

== ENCOUNTER 2024-03-08 12:19 | Observation (INO) | payer OTHER ==
--- NOTE | 2024-03-08 12:56 | ED ---
General Adult HPI - General Chief complaint: Chest Pain Stated complaint: chest pain Time Seen by Provider: 03/08/24 12:32 Source: patient, RN notes reviewed, old records reviewed Mode of arrival: ambulatory Limitations: no limitations - History of Present Illness Initial comments: Patient is a 54-year-old female presents emergency department with acute on chronic chest pain. Is well-known to our department. Has been having chest pain for over a week. States it is a pressure sensation to the epigastric region. States she is also having nausea and vomiting having hard time holding food and drink down. Unknown if she is able to hold her medications down and states she was unable to hold her metoprolol as her morning down. Patient has a past medical history remarkable for cardiac stent, hypertension, hyperlipidemia, seizure disorder, SVT. Is due to have a ablation procedure with her choker hooker in 8 days. Presents for further evaluation at this time. States the pressure does not radiate. It is constant. Has been unchanged since last week. No known palliative or provocative factors. No shortness of breath. No lightheadedness or diaphoresis. No diarrhea or. No fevers or chills. No cough. No fevers. Presents for further evaluation. - Related Data Home Medications Medication Instructions Recorded Confirmed Omeprazole [PriLOSEC] 20 mg PO HS 12/15/20 03/08/24 Thiamine [Vitamin B-1] 100 mg PO HS 01/04/21 03/08/24 Atorvastatin [Lipitor] 40 mg PO HS 07/20/21 03/08/24 DULoxetine HCL [Cymbalta] 60 mg PO HS 07/20/21 03/08/24 Atogepant [Qulipta] 60 mg PO HS 06/03/22 03/08/24 Cyclobenzaprine [Flexeril] 10 mg PO TID PRN 06/03/22 03/08/24 HYDROcodone/APAP 10-325MG [[place] 1 tab PO TID 06/03/22 03/08/24 10-325] Aspirin 81 mg PO HS 08/29/22 03/08/24 Cyanocobalamin (Vitamin B-12) 1,000 mcg PO HS 09/07/23 03/08/24 [Vitamin B-12] Multivitamins, Thera [Multivitamin 1 tab PO HS 09/07/23 03/08/24 (formulary)] Zavegepant HCl [Zavzpret] 1 spray NASAL DAILY PRN 09/07/23 03/08/24 Potassium Chloride ER [K-Dur 10] 10 meq PO BID 12/10/23 03/08/24 QUEtiapine FUMARATE [SEROquel] 300 mg PO HS 01/10/24 03/08/24 Previous Rx's Medication Instructions Recorded Metoprolol Tartrate [Lopressor] 50 mg PO BID #60 tab 01/22/24 Allergies Allergy/AdvReac Type Severity Reaction Status Date / Time dihydroergotamine Allergy Unknown Unknown Verified 03/08/24 14:21 [From Migranal] buprenorphine Allergy Rash/Hives Verified 03/08/24 14:21 gabapentin [From Neurontin] Allergy Itching/Swe Verified 03/08/24 14:21 lling latex Allergy Anaphylaxis Verified 03/08/24 14:21 naproxen [From Naprosyn] Allergy Anaphylaxis Verified 03/08/24 14:21 Penicillins Allergy Anaphylaxis Verified 03/08/24 14:21 prednisone Allergy Swelling Verified 03/08/24 14:21 quetiapine fumarate Allergy Itching, Verified 03/08/24 14:21 [From Seroquel] leg cramps rofecoxib [From Vioxx] Allergy Itching, Verified 03/08/24 14:21 leg cramps terfenadine [From Seldane] Allergy Rash/Hives Verified 03/08/24 14:21 vancomycin Allergy Rash/Hives/Swelling Verified 03/08/24 14:21 @IV site calcium carbonate [From DHEA] AdvReac Chest Pain Verified 03/08/24 14:21 calcium phosphate,dibasic AdvReac Chest Pain Verified 03/08/24 14:21 [From DHEA] clindamycin AdvReac muscle Verified 03/08/24 14:21 cramps clonidine AdvReac fast Verified 03/08/24 14:21 heartbeat, migraine dextromethorphan HBr AdvReac face/neck Verified 03/08/24 14:21 [From NyQuil] flushing diazepam [From Valium] AdvReac Nausea & Verified 03/08/24 14:21 Vomiting divalproex sodium AdvReac Nausea & Verified 03/08/24 14:21 [From Depakote] Vomiting doxylamine [From NyQuil] AdvReac face "beet Verified 03/08/24 14:21 red", elevated temp. ibuprofen [From Motrin] AdvReac abdominal Verified 03/08/24 14:21 & muscle cramps indomethacin [From Indocin] AdvReac Abdominal Verified 03/08/24 14:21 Pain,N/V ketorolac tromethamine AdvReac "built up Verified 03/08/24 14:21 [From Toradol] in system", had to be given something to reverse lorazepam [From Ativan] AdvReac Nausea & Verified 03/08/24 14:21 Vomiting memantine [From Namenda] AdvReac Itching Verified 03/08/24 14:21 metoclopramide HCl AdvReac muscle Verified 03/08/24 14:21 [From Reglan] cramps nortriptyline [From Pamelor] AdvReac Chest Pain Verified 03/08/24 14:21 prasterone (DHEA) [From DHEA] AdvReac Chest Pain Verified 03/08/24 14:21 prochlorperazine AdvReac leg Verified 03/08/24 14:21 [From Compazine] cramping propranolol AdvReac Chest Pain Verified 03/08/24 14:21 pseudoephedrine HCl AdvReac face "beet Verified 03/08/24 14:21 [From NyQuil] red", elevated temp. quetiapine [From Seroquel] AdvReac leg Verified 03/08/24 14:21 cramping sumatriptan [From Imitrex] AdvReac migrane Verified 03/08/24 14:21 sumatriptan succinate AdvReac migrane Verified 03/08/24 14:21 [From Imitrex] topiramate [From Topamax] AdvReac "built up Verified 03/08/24 14:21 in system", had to be given something to reverse tramadol AdvReac Nausea & Verified 03/08/24 14:21 Vomiting/LEG CRAMPS/HEART FLUTTERS trazodone AdvReac "built up Verified 03/08/24 14:21 in system", had to be given something to reverse zolpidem tartrate AdvReac "Became Verified 03/08/24 14:21 [From Ambien] violent with no memory" zonisamide [From Zonegran] AdvReac inability Verified 03/08/24 14:21 to eat artificial sweetener AdvReac SEVERE Uncoded 03/08/24 14:21 MIGRAINE HEADACHE prosyn AdvReac Itching Uncoded 03/08/24 14:21 Review of Systems ROS Statement: Those systems with pertinent positive or pertinent negative responses have been documented in the HPI. Review of Systems: CONST: Denies fever EYES: Denies blurry vision ENT: Denies nasal congestion C/V: Endorses chest pain RESP: Denies shortness of breath GI: Denies abdominal pain : Denies dysuria SKIN: Denies rash. MSK: Denies joint pain. NEURO: Denies headache ROS Other: All systems not noted in ROS Statement are negative. Past Medical History Past Medical History: Hyperlipidemia, Hypertension, Seizure Disorder, Supraventricular Tachycardia (SVT) Additional Past Medical History / Comment(s): Migraines, viral meningitis x3 as a child, 1995, 2000, chronic back pain, nerve blocks (neck and occipital nerve) 08/2016 and 12/2016. Last seizure 10/10/2020, "ABSENT SEIZURES. HX TACHYCARDIA, Complex PTSD. gillean barre History of Any Multi-Drug Resistant Organisms: None Reported Past Surgical History: Appendectomy, Section, Cholecystectomy, Heart Catheterization, Heart Catheterization With Stent, Hernia Repair, Hysterectomy, Orthopedic Surgery, Tonsillectomy, Tubal Ligation Additional Past Surgical History / Comment(s): Hiatal Hernia, umbilical hernia repair, left rotator cuff repair, bilateral knee scopes, pain clinic procedures- occipital nerve block. abd exploratory sx(endometreosis), 3 abd scopes 1981, 1989, 1991), lumbar puncture. EGD. nerve biopsy, salvalry gland biospy, Port (Right side 2018, left side 2020), Esophogeal dilation(2023) Past Anesthesia/Blood Transfusion Reactions: No Reported Reaction Additional Past Anesthesia/Blood Transfusion Reaction / Comment(s): Claustrophobic Date of Last Stent Placement:: 06/03/2022 Past Psychological History: Anxiety, Bipolar, Panic Disorder, PTSD Smoking Status: Former smoker Past Alcohol Use History: None Reported Past Drug Use History: None Reported - Past Family History Mother Family Medical History: Cancer, Dementia, Diabetes Mellitus, GERD/Reflux, Hyperlipidemia, Hypertension, Thyroid Disorder, Vascular Disorder Additional Family Medical History / Comment(s): CABG x2, stents Father History Unknown: Yes Family Medical History: No Reported History General Exam - General Exam Comments Initial Comments: General: Appears in mild distress secondary to pain HEAD: Normal with no signs of head trauma. EYES: EOMI ENT: Hearing grossly intact, normal oropharynx. RESPIRATORY: Clear breath sounds bilaterally. No wheezes, rales, or rhonchi. C/V: Tachycardic with regular rhythm. S1 and S2 auscultated, no edema, peripheral pulses 2+ and intact throughout ABD: Abd is soft, nontender, nondistended EXT: Normal range of motion, no obvious deformity. Chest pain is not reproducible on palpation SKIN: No rashes or lesions observed on exposed skin. NEURO: Alert and oriented X 4 Limitations: no limitations Course Vital Signs 03/08/24 03/08/24 03/08/24 12:21 15:22 17:50 Temperature 98.1 F Pulse Rate 139 H 90 72 Pulse Rate [ Thoracic Medicine Specialist ] Respiratory 24 16 Rate Blood Pressure 139/71 144/112 134/90 O2 Sat by Pulse 96 97 99 Oximetry 03/08/24 03/08/24 18:20 18:25 Temperature Pulse Rate 71 Pulse Rate [ 135 H Thoracic Medicine Specialist ] Respiratory 16 Rate Blood Pressure O2 Sat by Pulse 99 Oximetry Medical Decision Making - Medical Decision Making Was pt. sent in by a medical professional or institution (SHANTHI Silver, FISH HATCHERY LABORER, urgent care, hospital, or long term...) When possible be specific @ -No Did you speak to anyone other than the patient for history (EMS, parent, family, police, friend...)? What history was obtained from this source @ -No Did you review nursing and triage notes (agree or disagree)? Why? @ -I reviewed and agree with nursing and triage notes Were old charts reviewed (outside hosp., previous admission, EMS record, old EKG, old radiological studies, urgent care reports/EKG's, long term records)? Report findings @ -Reviewed recent visits including in February 2024. Compared March 03, 2024 EKG to today's EKG with no obvious acute changes. Differential Diagnosis (chest pain, altered mental status, abdominal pain women, abdominal pain men, vaginal bleeding, weakness, fever, dyspnea, syncope, headach e, dizziness, GI bleed, back pain, seizure, CVA, palpatations, mental health, musculoskeletal)? @ -Differential Chest Pain: Stable Angina, Unstable Angina, STEMI, NSTEMI Aortic Dissection, Pneumothorax, Musculoskeletal, Esophageal Spasm GERD, Cholecystitis, Pancreatitis, Zoster, this is not meant to be an all-inclusive list. EKG interpreted by me (3pts min.). @ -As above X-rays interpreted by me (1pt min.). @ -Chest x-ray reveals no obvious acute cardiopulmonary process. CT interpreted by me (1pt min.). @ -None done U/S interpreted by me (1pt. min.). @ -None done What testing was considered but not performed or refused? (CT, X-rays, U/S, labs)? Why? @ -None What meds were considered but not given or refused? Why? @ -None Did you discuss the management of the patient with other professionals (professionals i.e. , PA, FISH HATCHERY LABORER, lab, RT, psych nurse, social media analyst, truck switcher, teacher, data officer, case aide)? Give summary @ -I discussed the case with the admitting provider, Dr. Lyons who accepted the admission. Was smoking cessation discussed for >3mins.? @ -No Was critical care preformed (if so, how long)? @ -No Were there social determinants of health that impacted care today? How? (Homelessness, low income, unemployed, alcoholism, drug addiction, transportation, low edu. Level, literacy, decrease access to med. care, [facility], rehab)? @ -No Was there de-escalation of care discussed even if they declined (Discuss DNR or withdrawal of care, Hospice)? DNR status @ -No What co-morbidities impacted this encounter? (DM, HTN, Smoking, COPD, CAD, Cancer, CVA, ARF, Chemo, Hep., AIDS, mental health diagnosis, sleep apnea, morbid obesity)? @ -CAD, chronic pain, hypertension, chronic tachycardia Was patient admitted / discharged? Hospital course, mention meds given and route, prescriptions, significant lab abnormalities, going to OR and other pertinent info. @ -Patient presents emergency department with chronic pain. She is also having nausea and vomiting. Complaining of chest pain that has been present more or less for 1 week with nausea and vomiting. Vitals remarkable for sinus tachycardia but she has been a unable to tolerate her metoprolol. We will obt ain cardiac workup as well as provide the patient with IV analgesia medications, antiemetics, fluids, Protonix as well as a dose of her metoprolol which she has been unable to tolerate due to the nausea and vomiting as well as. And 24 mg of aspirin. She was in agreement this plan. EKG shows no signs of acute ischemia.X-ray reveals no obvious acute cardiopulmonary process. Laboratory studies are all within acceptable limits including troponin is undetectable. On reevaluation, I discussed with the patient as this is her third visit in less than a week I recommend admission observation at this time. We will continue to trend her troponins. Cardiology will be consulted. She was in agreement this plan. Pain is improved at this time. I discussed the case with the admitting provider, Dr. Lyons who accepted the admission. Undiagnosed new problem with uncertain prognosis? @ -No Drug Therapy requiring intensive monitoring for toxicity (Heparin, Nitro, Insulin, Cardizem)? @ -No Were any procedures done? @ -No Diagnosis/symptom? @ -Chest pain, nausea and vomiting Acute, or Chronic, or Acute on Chronic? @ -Acute on chronic Uncomplicated (without systemic symptoms) or Complicated (systemic symptoms)? @ -Complicated Side effects of treatment? @ -None Exacerbation, Progression, or Severe Exacerbation] @ -No Poses a threat to life or bodily function? @ -Potentially, yes - Lab Data Result diagrams: 03/08/24 12:41 03/08/24 12:41 Lab Results 03/08/24 03/08/24 03/08/24 Range/Units 12:41 12:41 12:41 WBC 8.6 (3.8-10.6) k/uL RBC 4.29 (3.80-5.40) m/uL Hgb 14.0 (11.4-16.0) gm/dL Hct 42.8 (34.0-46.0) % MCV 99.9 (80.0-100.0) fL MCH 32.7 (25.0-35.0) pg MCHC 32.8 (31.0-37.0) g/dL RDW 13.3 (11.5-15.5) % Plt Count 283 (150-450) k/uL MPV 9.1 Neutrophils % 76 % Lymphocytes % 17 % Monocytes % 5 % Eosinophils % 1 % Basophils % 0 % Neutrophils # 6.5 (1.3-7.7) k/uL Lymphocytes # 1.5 (1.0-4.8) k/uL Monocytes # 0.4 (0-1.0) k/uL Eosinophils # 0.1 (0-0.7) k/uL Basophils # 0.0 (0-0.2) k/uL PT 10.8 (10.0-12.5) sec INR 1.0 (<1.2) APTT 38.6 H (22.0-30.0) sec Sodium 139 (137-145) mmol/L Potassium 3.5 (3.5-5.1) mmol/L Chloride 103 (98-107) mmol/L Carbon Dioxide 26 (22-30) mmol/L Anion Gap 10 mmol/L BUN 8 (7-17) mg/dL Creatinine 0.86 (0.52-1.04) mg/dL Est GFR (CKD-EPI)AfAm >90 (>60 ml/min/1.73 sqM) Est GFR (CKD-EPI)NonAf 79 (>60 ml/min/1.73 sqM) Glucose 164 H (74-99) mg/dL Calcium 9.2 (8.4-10.2) mg/dL Magnesium 2.0 (1.6-2.3) mg/dL Total Bilirubin 0.8 (0.2-1.3) mg/dL AST 27 (14-36) U/L ALT 16 (4-34) U/L Alkaline Phosphatase 118 (38-126) U/L Troponin I (0.000-0.034) ng/mL Total Protein 7.1 (6.3-8.2) g/dL Albumin 4.3 (3.5-5.0) g/dL Lipase 72 (23-300) U/L Influenza Type A (PCR) (Not Detectd) Influenza Type B (PCR) (Not Detectd) RSV (PCR) (Not Detectd) SARS-CoV-2 (PCR) (Not Detectd) 03/08/24 03/08/24 Range/Units 12:41 12:57 WBC (3.8-10.6) k/uL RBC (3.80-5.40) m/uL Hgb (11.4-16.0) gm/dL Hct (34.0-46.0) % MCV (80.0-100.0) fL MCH (25.0-35.0) pg MCHC (31.0-37.0) g/dL RDW (11.5-15.5) % Plt Count (150-450) k/uL MPV Neutrophils % % Lymphocytes % % Monocytes % % Eosinophils % % Basophils % % Neutrophils # (1.3-7.7) k/uL Lymphocytes # (1.0-4.8) k/uL Monocytes # (0-1.0) k/uL Eosinophils # (0-0.7) k/uL Basophils # (0-0.2) k/uL PT (10.0-12.5) sec INR (<1.2) APTT (22.0-30.0) sec Sodium (137-145) mmol/L Potassium (3.5-5.1) mmol/L Chloride (98-107) mmol/L Carbon Dioxide (22-30) mmol/L Anion Gap mmol/L BUN (7-17) mg/dL Creatinine (0.52-1.04) mg/dL Est GFR (CKD-EPI)AfAm (>60 ml/min/1.73 sqM) Est GFR (CKD-EPI)NonAf (>60 ml/min/1.73 sqM) Glucose (74-99) mg/dL Calcium (8.4-10.2) mg/dL Magnesium (1.6-2.3) mg/dL Total Bilirubin (0.2-1.3) mg/dL AST (14-36) U/L ALT (4-34) U/L Alkaline Phosphatase (38-126) U/L Troponin I <0.012 (0.000-0.034) ng/mL Total Protein (6.3-8.2) g/dL Albumin (3.5-5.0) g/dL Lipase (23-300) U/L Influenza Type A (PCR) Not Detected (Not Detectd) Influenza Type B (PCR) Not Detected (Not Detectd) RSV (PCR) Not Detected (Not Detectd) SARS-CoV-2 (PCR) Not Detected (Not Detectd) - EKG Data -: EKG Interpreted by Me EKG Comments: 12-lead Electrocardiogram Interpretation Note EKG was reviewed and interpreted by myself. 12-lead ECG performed at 1230 is interpreted by me as revealing sinus tachycardia at a rate of 130 beats per minute. [place] is normal. OK interval is 148 ms, QRS duration is 76 ms, QTc is 410 ms.. There were no ST or T wave abnormalities to suggest myocardial ischemia or injury. R wave progression across the precordium was satisfactory. By my interpretation this EKG is non-diagnostic for acute ischemia. EKG from March 03, 2024. No acute changes other than the increased tachycardia at this time. Disposition Clinical Impression: Chest pain, Nausea and vomiting Disposition: ADMITTED IP TO THIS HOSP Condition: Stable Time of Disposition: 14:42
[2024-03-08 13:03] LABS: Basophils % (A) 0 %; Eosinophils # (A) 0.1 k/uL (0-0.7); Eosinophils % (A) 1 %; HCT 42.8 % (34.0-46.0); Lymphocytes # (A) 1.5 k/uL (1.0-4.8); Lymphocytes % (A) 17 %; MCH 32.7 pg (25.0-35.0); MCHC 32.8 g/dL (31.0-37.0); MCV 99.9 fL (80.0-100.0); Mean Platelet Volume 9.1; Monocytes # (A) 0.4 k/uL (0-1.0); Monocytes % (A) 5 %; Neutrophils # (A) 6.5 k/uL (1.3-7.7); Neutrophils % (A) 76 %; Platelet Count 283 k/uL (150-450); RBC 4.29 m/uL (3.80-5.40); RDW 13.3 % (11.5-15.5); WBC 8.6 k/uL (3.8-10.6)
[2024-03-08 13:13] LABS: ALT 16 U/L (4-34); African American GFR (CKD) >90 (>60 ml/min/1.73 sqM); Albumin 4.3 g/dL (3.5-5.0); Anion Gap 10 mmol/L; Blood Urea Nitrogen 8 mg/dL (7-17); Calcium 9.2 mg/dL (8.4-10.2); Carbon Dioxide 26 mmol/L (22-30); Chloride 103 mmol/L (98-107); Glucose 164 mg/dL (74-99); Lipase 72 U/L (23-300); Non-African American GFR(CKD) 79 (>60 ml/min/1.73 sqM); Sodium 139 mmol/L (137-145); Total Bilirubin 0.8 mg/dL (0.2-1.3); Total Protein 7.1 g/dL (6.3-8.2)
[2024-03-08] MEDS: SODIUM CHLORIDE 0.9% 1,000 ML IV STA (13:14)
[2024-03-08] MEDS: PANTOPRAZOLE 40 MG/10 ML VIAL IVP STA (13:19)
[2024-03-08] MEDS: ONDANSETRON 4 MG/2 ML VIAL IVP STA (13:20)
[2024-03-08 13:22] LABS: Partial Thromboplastin Time 38.6 sec (22.0-30.0); Prothrombin Time 10.8 sec (10.0-12.5)
[2024-03-08] MEDS: HYDROmorphone 1 MG/ML 1 ML SYRINGE IVP STA ×2 (13:22→15:16)
[2024-03-08 13:30] LABS: AST 27 U/L (14-36); Alkaline Phosphatase 118 U/L (38-126); Potassium 3.5 mmol/L (3.5-5.1)
--- NOTE | 2024-03-08 13:52 | XR ---
EXAMINATION TYPE: XR chest 2V DATE OF EXAM: 03/08/2024 1:39 PM COMPARISON: Chest radiographs from 03/03/2024 CLINICAL INDICATION: Female, 54 years old with history of Chest Pain; TECHNIQUE: XR chest 2V Frontal and lateral views of the chest. FINDINGS: Lungs/Pleura: There is no evidence of pleural effusion, focal consolidation, or pneumothorax. Pulmonary vascularity: Unremarkable. Heart/mediastinum: Cardiomediastinal silhouette is unremarkable. Musculoskeletal: No acute osseous pathology. Other findings: None Lines/Tubes: [id number] projecting over the left hemithorax with distal tip at the cavoatrial junction. IMPRESSION: No acute cardiopulmonary disease/process. [facility], , 03/08/2024 1:49 PM
[2024-03-08] MEDS: METOPROLOL TARTRATE 50 MG TAB PO STA (14:24)
[2024-03-08] MEDS: ASPIRIN 81 MG PO STA (14:24)
[2024-03-08] MEDS ORDERED: NALOXONE 0.4 MG/ML 1 ML VIAL IV PRN (14:34)
[2024-03-08] MEDS: HEPARIN SODIUM,PORCINE 5,000 UNIT/ML 1 ML VIAL SQ SCH (15:15)
[2024-03-08] MEDS: SODIUM CHLORIDE 0.9% 1,000 ML IV SCH (15:16)
[2024-03-08 16:33] LABS: Appearance,Urine Clear (Clear); Bilirubin,Urine Negative (Negative); Blood,Urine Negative (Negative); Color,Urine Yellow; Glucose,Urine (UA) Negative (Negative); Ketones,Urine Negative (Negative); Leukocyte Esterase,Urine Negative (Negative); Nitrite,Urine Negative (Negative); PH, Urine 5.5 (5.0-8.0); Protein,Urine Negative (Negative); Specific Gravity,Urine 1.012 (1.001-1.035); Urobilinogen,Urine <2.0 mg/dL (<2.0)
[2024-03-08] MEDS: ONDANSETRON 4 MG/2 ML VIAL IVP PRN (17:57)
[2024-03-08] MEDS: HYDROmorphone 1 MG/ML 1 ML SYRINGE IVP PRN (18:31)
[2024-03-08] MEDS: diphenhydrAMINE 50 MG/ML 1 ML VIAL IVP STA (20:41)
[2024-03-08] MEDS ORDERED: CYCLOBENZAPRINE 10 MG TAB PO PRN (23:27)
[2024-03-08] MEDS: ATORVASTATIN 40 MG TAB PO SCH (23:53)
[2024-03-08] MEDS: DULoxetine HCL 60 MG CAPSULE.DR PO SCH (23:53)
[2024-03-08] MEDS: METOPROLOL TARTRATE 50 MG TAB PO SCH (23:53)
[2024-03-08] MEDS: POTASSIUM CHLORIDE ER 10 MEQ TAB.ER.PRT PO SCH (23:53)
[2024-03-08] MEDS: PANTOPRAZOLE 40 MG TABLET PO SCH (23:53)
[2024-03-09] MEDS: QUEtiapine 100 MG TAB PO SCH (00:29)
[2024-03-09 08:21] LABS: Basophils # (A) 0.05 X 10*3/uL (0.00-0.10); Basophils % (A) 0.7 %; Eosinophils # (A) 0.09 X 10*3/uL (0.04-0.35); Eosinophils % (A) 1.3 %; HCT 36.2 % (37.2-46.3); HGB 11.7 g/dL (12.0-15.0); Lymphocytes # (A) 2.44 X 10*3/uL (0.90-5.00); Lymphocytes % (A) 34.4 %; MCH 33.5 pg (27.0-32.0); MCHC 32.3 g/dL (32.0-37.0); MCV 103.7 FL (80.0-97.0); Mean Platelet Volume 11.9 FL (9.5-12.2); Monocytes # (A) 0.55 X 10*3/uL (0.20-1.00); Monocytes % (A) 7.8 %; NRBC Per 100 WBC 0 X 10*3/uL (0.00-0.01); Neutrophils # (A) 3.95 X 10*3/uL (1.80-7.70); Neutrophils % (A) 55.7 %; Platelet Count 222 X 10*3/uL (140-440); RBC 3.49 X 10*6/uL (4.10-5.20); RDW 13.3 % (11.5-14.5); WBC 7.09 X 10*3/uL (4.50-10.00)
[2024-03-09 09:03] LABS: ALT 11 U/L (8-44); AST 19 U/L (13-35); Albumin 3.6 g/dL (3.8-4.9); Albumin/Globulin Ratio 1.71 Ratio (1.60-3.17); Alkaline Phosphatase 115 U/L (41-126); BUN/Creat Ratio 6.33 Ratio (12.00-20.00); Blood Urea Nitrogen 5.7 mg/dL (9.0-27.0); Calcium 8.4 mg/dL (8.7-10.3); Carbon Dioxide 22.5 mmol/L (21.6-31.8); Chloride 106 mmol/L (96-109); Globulin 2.1 g/dL (1.6-3.3); Glucose 104 mg/dL (70-110); Potassium 3.5 mmol/L (3.5-5.5); Sodium 140 mmol/L (135-145); Total Bilirubin 0.4 mg/dL (0.3-1.2); Total Protein 5.7 g/dL (6.2-8.2)
[2024-03-09] MEDS: CYANOCOBALAMIN 500 MCG TAB PO SCH (09:58)
[2024-03-09] MEDS: THIAMINE 100 MG TAB PO SCH (09:58)
--- NOTE | 2024-03-09 10:45 | P.CRDCN ---
History of Present Illness History of present illness: This is a 54-year-old female patient of Dr. 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 We have been asked to evaluate the patient for chest pain. Patient has been doing okay however over the last 1 month she has had fairly persistent chest pain which will be in the epigastric, substernal area. She states is constant and not really improved with any medications. She has tried GI cocktails in the past. This is similar to her episode where she was admitted in January. At that time she had a Lexiscan stress test performed which showed no inducible ischemia. She does admit to GI issues with prior hiatal hernia and mesh as well as esophageal dilation at [facility] from summer 2023. She is scheduled for SVT ablation in 1-2 weeks. Cardiac catheterization history May 2022 with stenting of the LAD Tilt table test August 2022 did not reveal evidence of neurocardiogenic syncope dysautonomia Echocardiogram performed August 2022 revealed EF 55 to 60%, LVH, mild pulmonary hypertension, trace mitral regurgitation, trace to mild tricuspid regurgitation and trace pulmonic regurgitation Review Of Systems: At the time of my exam: CONSTITUTIONAL: Denies fever or chills. Reports headache HEENT: Denies blurred vision, vision changes, or eye pain. Denies hemoptysis CARDIOVASCULAR: Reports chest pain. Denies orthopnea. Denies PND. Denies palpitations RESPIRATORY: Denies shortness of breath. GASTROINTESTINAL: Denies abdominal pain. Reports nausea without vomiting. HEMATOLOGIC: Denies bleeding disorders. GENITOURINARY: Denies any blood in urine. SKIN: Denies puritis. Denies rash. Physical examination: Gen: no acute process VS: reviewed HEENT: Head is atraumatic, normocephalic. Pupils equal, round. Sclerae is anicteric. NECK: Supple. No JVD. LUNGS: Clear to auscultation. No wheezes or rhonchi. No intercostal retractions. HEART: Regular rate and rhythm. No murmur. ABDOMEN: Soft No tenderness. EXTREMITIES: No pedal edema. No calf tenderness. NEUROLOGICAL: Patient is awake, alert and oriented x3. Assessment: Atypical chest pain, acute coronary syndrome ruled out. more likely GI source with symptoms persistent, not improved with antianginals and additionally having nausea and decreased appetite. 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 Troponins normal and EKG without any significant ischemic changes. More likely GI source as symptoms are constant and also having some nausea and decreased appetite. Consider further GI workup, possible EGD especially with her history of esophageal stricture. No further workup as an inpatient. Follow-up in 1-2 weeks out. Past Medical History Past Medical History: Hyperlipidemia, Hypertension, Seizure Disorder, Supraventricular Tachycardia (SVT) Additional Past Medical History / Comment(s): Migraines, viral meningitis x3 as a child, 1995, 2000, chronic back pain, nerve blocks (neck and occipital nerve) 08/2016 and 12/2016. Last seizure 10/10/2020, "ABSENT SEIZURES. HX TACHYCARDIA, Complex PTSD. gillean barre History of Any Multi-Drug Resistant Organisms: None Reported Past Surgical History: Appendectomy, Section, Cholecystectomy, Heart Catheterization, Heart Catheterization With Stent, Hernia Repair, Hysterectomy, Orthopedic Surgery, Tonsillectomy, Tubal Ligation Additional Past Surgical History / Comment(s): Hiatal Hernia, umbilical hernia repair, left rotator cuff repair, bilateral knee scopes, pain clinic procedures- occipital nerve block. abd exploratory sx(endometreosis), 3 abd scopes 1981, 1989, 1991), lumbar puncture. EGD. nerve biopsy, salvalry gland biospy, Port (Right side 2018, left side 2020), Esophogeal dilation(2023) Past Anesthesia/Blood Transfusion Reactions: No Reported Reaction Additional Past Anesthesia/Blood Transfusion Reaction / Comment(s): Claustrophobic Date of Last Stent Placement:: 06/03/2022 Smoking Status: Former smoker - Past Family History Mother Family Medical History: Cancer, Dementia, Diabetes Mellitus, GERD/Reflux, Hyperlipidemia, Hypertension, Thyroid Disorder, Vascular Disorder Additional Family Medical History / Comment(s): CABG x2, stents Father History Unknown: Yes Family Medical History: No Reported History Medications and Allergies Home Medications Medication Instructions Recorded Confirmed Type Omeprazole [PriLOSEC] 20 mg PO HS 12/15/20 03/08/24 History Thiamine [Vitamin B-1] 100 mg PO DAILY 01/04/21 03/08/24 History Atorvastatin [Lipitor] 40 mg PO HS 07/20/21 03/08/24 History DULoxetine HCL [Cymbalta] 60 mg PO HS 07/20/21 03/08/24 History Atogepant [Qulipta] 60 mg PO HS 06/03/22 03/08/24 History Cyclobenzaprine [Flexeril] 10 mg PO TID PRN 06/03/22 03/08/24 History HYDROcodone/APAP 10-325MG [[place] 1 tab PO TID 06/03/22 03/08/24 History 10-325] Aspirin 81 mg PO HS 08/29/22 03/08/24 History Cyanocobalamin (Vitamin B-12) 1,000 mcg PO DAILY 09/07/23 03/08/24 History [Vitamin B-12] Multivitamins, Thera [Multivitamin 1 tab PO HS 09/07/23 03/08/24 History (formulary)] Zavegepant HCl [Zavzpret] 1 spray NASAL DAILY PRN 09/07/23 03/08/24 History Potassium Chloride ER [K-Dur 10] 10 meq PO BID 12/10/23 03/08/24 History QUEtiapine FUMARATE [SEROquel] 300 mg PO HS 01/10/24 03/08/24 History Metoprolol Tartrate [Lopressor] 50 mg PO BID #60 tab 01/22/24 03/08/24 Rx Allergies Allergy/AdvReac Type Severity Reaction Status Date / Time dihydroergotamine Allergy Unknown Unknown Verified 03/08/24 14:21 [From Migranal] buprenorphine Allergy Rash/Hives Verified 03/08/24 14:21 gabapentin [From Neurontin] Allergy Itching/Swe Verified 03/08/24 14:21 lling latex Allergy Anaphylaxis Verified 03/08/24 14:21 naproxen [From Naprosyn] Allergy Anaphylaxis Verified 03/08/24 14:21 Penicillins Allergy Anaphylaxis Verified 03/08/24 14:21 prednisone Allergy Swelling Verified 03/08/24 14:21 quetiapine fumarate Allergy Itching, Verified 03/08/24 14:21 [From Seroquel] leg cramps rofecoxib [From Vioxx] Allergy Itching, Verified 03/08/24 14:21 leg cramps terfenadine [From Seldane] Allergy Rash/Hives Verified 03/08/24 14:21 vancomycin Allergy Rash/Hives/Swelling Verified 03/08/24 14:21 @IV site calcium carbonate [From DHEA] AdvReac Chest Pain Verified 03/08/24 14:21 calcium phosphate,dibasic AdvReac Chest Pain Verified 03/08/24 14:21 [From DHEA] clindamycin AdvReac muscle Verified 03/08/24 14:21 cramps clonidine AdvReac fast Verified 03/08/24 14:21 heartbeat, migraine dextromethorphan HBr AdvReac face/neck Verified 03/08/24 14:21 [From NyQuil] flushing diazepam [From Valium] AdvReac Nausea & Verified 03/08/24 14:21 Vomiting divalproex sodium AdvReac Nausea & Verified 03/08/24 14:21 [From Depakote] Vomiting doxylamine [From NyQuil] AdvReac face "beet Verified 03/08/24 14:21 red", elevated temp. ibuprofen [From Motrin] AdvReac abdominal Verified 03/08/24 14:21 & muscle cramps indomethacin [From Indocin] AdvReac Abdominal Verified 03/08/24 14:21 Pain,N/V ketorolac tromethamine AdvReac "built up Verified 03/08/24 14:21 [From Toradol] in system", had to be given something to reverse lorazepam [From Ativan] AdvReac Nausea & Verified 03/08/24 14:21 Vomiting memantine [From Namenda] AdvReac Itching Verified 03/08/24 14:21 metoclopramide HCl AdvReac muscle Verified 03/08/24 14:21 [From Reglan] cramps nortriptyline [From Pamelor] AdvReac Chest Pain Verified 03/08/24 14:21 prasterone (DHEA) [From DHEA] AdvReac Chest Pain Verified 03/08/24 14:21 prochlorperazine AdvReac leg Verified 03/08/24 14:21 [From Compazine] cramping propranolol AdvReac Chest Pain Verified 03/08/24 14:21 pseudoephedrine HCl AdvReac face "beet Verified 03/08/24 14:21 [From NyQuil] red", elevated temp. quetiapine [From Seroquel] AdvReac leg Verified 03/08/24 14:21 cramping sumatriptan [From Imitrex] AdvReac migrane Verified 03/08/24 14:21 sumatriptan succinate AdvReac migrane Verified 03/08/24 14:21 [From Imitrex] topiramate [From Topamax] AdvReac "built up Verified 03/08/24 14:21 in system", had to be given something to reverse tramadol AdvReac Nausea & Verified 03/08/24 14:21 Vomiting/LEG CRAMPS/HEART FLUTTERS trazodone AdvReac "built up Verified 03/08/24 14:21 in system", had to be given something to reverse zolpidem tartrate AdvReac "Became Verified 03/08/24 14:21 [From Ambien] violent with no memory" zonisamide [From Zonegran] AdvReac inability Verified 03/08/24 14:21 to eat artificial sweetener AdvReac SEVERE Uncoded 03/08/24 14:21 MIGRAINE HEADACHE prosyn AdvReac Itching Uncoded 03/08/24 14:21 Physical Exam Vitals: Vital Signs Temp Pulse Pulse Pulse Resp BP BP 03/09/24 08:08 03/09/24 07:10 97.3 F L 77 16 118/82 03/09/24 06:29 75 03/09/24 05:07 76 03/09/24 03:46 97.6 F 85 17 03/08/24 22:58 97.8 F 79 18 03/08/24 22:47 97.5 F L 78 18 145/102 03/08/24 18:25 71 16 03/08/24 18:20 135 H 03/08/24 17:50 72 134/90 03/08/24 15:22 90 16 144/112 03/08/24 12:21 98.1 F 139 H 24 139/71 BP Pulse Ox 03/09/24 08:08 95 03/09/24 07:10 100 03/09/24 06:29 98/67 03/09/24 05:07 97/66 03/09/24 03:46 93/65 95 03/08/24 22:58 136/97 97 03/08/24 22:47 97 03/08/24 18:25 99 03/08/24 18:20 03/08/24 17:50 99 03/08/24 15:22 97 03/08/24 12:21 96 Intake and Output 03/08/24 03/09/24 03/09/24 22:59 06:59 14:59 Other: # Voids 1 Weight 75 kg Results 03/09/24 05:34 03/09/24 05:34 Cardiac Enzymes 03/08/24 03/08/24 03/08/24 Range/Units 12:41 12:41 16:06 AST 27 (14-36) U/L Troponin I <0.012 <0.012 (0.000-0.034) ng/mL 03/08/24 03/09/24 Range/Units 20:20 05:34 AST 19 (14-36) U/L Troponin I <0.012 (0.000-0.034) ng/mL Coagulation 03/08/24 Range/Units 12:41 PT 10.8 (10.0-12.5) sec APTT 38.6 H (22.0-30.0) sec CBC 03/08/24 03/09/24 Range/Units 12:41 05:34 WBC 8.6 7.09 (3.8-10.6) k/uL RBC 4.29 3.49 L (3.80-5.40) m/uL Hgb 14.0 11.7 L (11.4-16.0) gm/dL Hct 42.8 36.2 L (34.0-46.0) % Plt Count 283 222 (150-450) k/uL Comprehensive Metabolic Panel 03/08/24 03/09/24 Range/Units 12:41 05:34 Sodium 139 140 (137-145) mmol/L Potassium 3.5 3.5 (3.5-5.1) mmol/L Chloride 103 106 (98-107) mmol/L Carbon Dioxide 26 22.5 (22-30) mmol/L BUN 8 5.7 L (7-17) mg/dL Creatinine 0.86 0.9 (0.52-1.04) mg/dL Glucose 164 H 104 (74-99) mg/dL Calcium 9.2 8.4 L (8.4-10.2) mg/dL AST 27 19 (14-36) U/L ALT 16 11 (4-34) U/L Alkaline Phosphatase 118 115 (38-126) U/L Total Protein 7.1 5.7 L (6.3-8.2) g/dL Albumin 4.3 3.6 L (3.5-5.0) g/dL Current Medications Generic Name Dose Route Start Last Admin Trade Name Freq PRN Reason Stop Dose Admin Hydrocodone Bitart/Acetaminophen 1 each 03/08/24 23:27 Hydrocodone/Apap 10-325mg 1 Each Tab PO TID PRN pain Aspirin 81 mg 03/09/24 21:00 Aspirin 81 Mg PO HS PAMELA Atorvastatin Calcium 40 mg 03/08/24 23:55 03/08/24 23:53 Atorvastatin 40 Mg Tab PO 40 mg HS PAMELA Administration Cyanocobalamin 1,000 mcg 03/09/24 09:00 03/09/24 09:58 Cyanocobalamin 500 Mcg Tab PO 1,000 mcg DAILY PAMELA Administration Cyclobenzaprine HCl 10 mg 03/08/24 23:27 Cyclobenzaprine 10 Mg Tab PO TID PRN Pain Diphenhydramine HCl 25 mg 03/09/24 00:26 Diphenhydramine 25 Mg Cap PO TID PRN Itching Duloxetine HCl 60 mg 03/08/24 23:30 03/08/24 23:53 Duloxetine Hcl 60 Mg Capsule.Dr PO 60 mg HS PAMELA Administration Heparin Sodium (Porcine) 5,000 unit 03/08/24 16:00 03/09/24 09:58 Heparin Sodium,Porcine 5,000 Unit/Ml 1 Ml Vial SQ 5,000 unit Q8HR PAMELA Administration Hydromorphone HCl 1 mg 03/08/24 14:34 03/09/24 07:57 Hydromorphone 1 Mg/Ml 1 Ml Syringe IVP 1 mg Q3HR PRN Administration Severe Pain (Scale 7 to 10) Sodium Chloride 1,000 mls @ 75 mls/hr 03/08/24 14:45 03/09/24 05:08 Saline 0.9% IV 75 mls/hr .[id number] PAMELA Administration Metoprolol Tartrate 50 mg 03/08/24 23:30 03/08/24 23:53 Metoprolol Tartrate 50 Mg Tab PO 50 mg BID PAMELA Administration Multivitamins 1 each 03/09/24 21:00 Multivitamins, Thera 1 Each Tab PO HS PAMELA Naloxone HCl 0.2 mg 03/08/24 14:34 Naloxone 0.4 Mg/Ml 1 Ml Vial IV Q2M PRN Opioid Reversal Non-Formulary Medication 60 mg 03/09/24 21:00 Atogepant [Qulipta] PO HS PAMELA Ondansetron HCl 4 mg 03/08/24 14:34 03/09/24 07:57 Ondansetron 4 Mg/2 Ml Vial IVP 4 mg Q8HR PRN Administration Nausea And Vomiting Pantoprazole Sodium 40 mg 03/09/24 09:00 Pantoprazole 40 Mg/10 Ml Vial IV DAILY PAMELA Pantoprazole Sodium 40 mg 03/08/24 23:30 03/08/24 23:53 Pantoprazole 40 Mg Tablet PO 40 mg HS PAMELA Administration Potassium Chloride 10 meq 03/08/24 23:30 03/09/24 09:58 Potassium Chloride Er 10 Meq Tab.Er.Prt PO 10 meq BID PAMELA Administration Quetiapine Fumarate 300 mg 03/08/24 23:55 03/09/24 00:29 Quetiapine 100 Mg Tab PO 300 mg HS PAMELA Administration Thiamine HCl 100 mg 03/09/24 09:00 03/09/24 09:58 Thiamine 100 Mg Tab PO 100 mg DAILY PAMELA Administration Intake and Output 03/08/24 03/09/24 03/09/24 22:59 06:59 14:59 Other: # Voids 1 Weight 75 kg 03/09/24 05:34 03/09/24 05:34
[2024-03-09] MEDS: PANTOPRAZOLE 40 MG/10 ML VIAL IV SCH (11:17)
[2024-03-09 14:23] VITALS: BMI 29.2
[2024-03-09] MEDS: MULTIVITAMINS, THERA 1 EACH TAB PO SCH (20:53)
[2024-03-09] MEDS: ASPIRIN 81 MG PO SCH (20:53)
[2024-03-09] MEDS: NON FORMULARY DRUG (Atogepant [Qulipta] 60 MG Tablet) PO SCH (20:57)
[2024-03-09] MEDS: diphenhydrAMINE 25 MG CAP PO PRN (21:03)
--- NOTE | 2024-03-09 23:27 | P.HPIM ---
History of Present Illness H&P Date: 03/09/24 Chief Complaint: Chest pain Patient is a 54-year-old male with a known history of hypertension, hyperemia, SVT, history of seizure disorder, migraine headaches, chronic back pain, history of nerve blocks, complex PTSD, [place] syndrome and bilateral lower extremity weakness, coronary artery disease history of stent placement to mid LAD and prior history of smoking. Patient presents to ER with complaints of chest pain for about a week. Patient states she has been having nausea and vomiting and unable to keep down food for about a month. She started having epigastric pressure-like sensation/chest pain radiating to left side of neck. Associate with nausea. Also having vomiting. No complaints of shortness of breath. No dizziness or lightheadedness. No fever no chills. No cough or sputum production. Patient states that she is scheduled for ablation with her commodity analyst in 8 days. EKG on admission showed sinus tachycardia. Chest x-ray showed no acute car diopulmonary process. Laboratory data showed WBC 8.6 hemoglobin 14.0 and platelets 283 sodium 139 po tassium 3.5 chloride 103 bicarb is 26 BUN 18 creatinine 0.86 and blood sugar 164. Liver enzymes are not elevated. Urinalysis is negative for infection. Influenza A B and RSV and COVID-19 PCR not detected. Review of Systems Constitutional: Patient denies any fever or chills . No generalized weakness or weight loss. Abdomen: Nausea vomiting and abdominal pain epigastric region. No diarrhea. Cardiovascular: Patient denies any chest pain or short of breath no palpi tations. Respiratory: patient denied any cough or sputum production. No shortness of breath Neurologic: Patient denied any numbness or tingling. no headache. Musculoskeletal: Patient denies any complaints of joint swelling or deformity. Skin: Negative Psychiatric: Negative Endocrine: No heat or cold intolerance. No recent weight gain. Genitourinary: No dysuria or hematuria. All other 14 point ROS negative except the above Past Medical History Past Medical History: Hyperlipidemia, Hypertension, Seizure Disorder, Supraventricular Tachycardia (SVT) Additional Past Medical History / Comment(s): Migraines, viral meningitis x3 as a child, 1995, 2000, chronic back pain, nerve blocks (neck and occipital nerve) 08/2016 and 12/2016. Last seizure 10/10/2020, "ABSENT SEIZURES. HX TACHYCARDIA, Complex PTSD. gillean barre History of Any Multi-Drug Resistant Organisms: None Reported Past Surgical History: Appendectomy, Section, Cholecystectomy, Heart Catheterization, Heart Catheterization With Stent, Hernia Repair, Hysterectomy, Orthopedic Surgery, Tonsillectomy, Tubal Ligation Additional Past Surgical History / Comment(s): Hiatal Hernia, umbilical hernia repair, left rotator cuff repair, bilateral knee scopes, pain clinic procedures- occipital nerve block. abd exploratory sx(endometreosis), 3 abd scopes 1981, 1989, 1991), lumbar puncture. EGD. nerve biopsy, salvalry gland biospy, Port (Right side 2018, left side 2020), Esophogeal dilation(2023) Past Anesthesia/Blood Transfusion Reactions: No Reported Reaction Additional Past Anesthesia/Blood Transfusion Reaction / Comment(s): Claustrophob ic Date of Last Stent Placement:: 06/03/2022 Smoking Status: Former smoker - Past Family History Mother Family Medical History: Cancer, Dementia, Diabetes Mellitus, GERD/Reflux, Hyperlipidemia, Hypertension, Thyroid Disorder, Vascular Disorder Additional Family Medical History / Comment(s): CABG x2, stents Father History Unknown: Yes Family Medical History: No Reported History Medications and Allergies Home Medications Medication Instructions Recorded Confirmed Type Omeprazole [PriLOSEC] 20 mg PO HS 12/15/20 03/08/24 History Thiamine [Vitamin B-1] 100 mg PO DAILY 01/04/21 03/08/24 History Atorvastatin [Lipitor] 40 mg PO HS 07/20/21 03/08/24 History DULoxetine HCL [Cymbalta] 60 mg PO HS 07/20/21 03/08/24 History Atogepant [Qulipta] 60 mg PO HS 06/03/22 03/08/24 History Cyclobenzaprine [Flexeril] 10 mg PO TID PRN 06/03/22 03/08/24 History HYDROcodone/APAP 10-325MG [[place] 1 tab PO TID 06/03/22 03/08/24 History 10-325] Aspirin 81 mg PO HS 08/29/22 03/08/24 History Cyanocobalamin (Vitamin B-12) 1,000 mcg PO DAILY 09/07/23 03/08/24 History [Vitamin B-12] Multivitamins, Thera [Multivitamin 1 tab PO HS 09/07/23 03/08/24 History (formulary)] Zavegepant HCl [Zavzpret] 1 spray NASAL DAILY PRN 09/07/23 03/08/24 History Potassium Chloride ER [K-Dur 10] 10 meq PO BID 12/10/23 03/08/24 History QUEtiapine FUMARATE [SEROquel] 300 mg PO HS 01/10/24 03/08/24 History Metoprolol Tartrate [Lopressor] 50 mg PO BID #60 tab 01/22/24 03/08/24 Rx Allergies Allergy/AdvReac Type Severity Reaction Status Date / Time dihydroergotamine Allergy Unknown Unknown Verified 03/08/24 14:21 [From Migranal] buprenorphine Allergy Rash/Hives Verified 03/08/24 14:21 gabapentin [From Neurontin] Allergy Itching/Swe Verified 03/08/24 14:21 lling latex Allergy Anaphylaxis Verified 03/08/24 14:21 naproxen [From Naprosyn] Allergy Anaphylaxis Verified 03/08/24 14:21 Penicillins Allergy Anaphylaxis Verified 03/08/24 14:21 prednisone Allergy Swelling Verified 03/08/24 14:21 quetiapine fumarate Allergy Itching, Verified 03/08/24 14:21 [From Seroquel] leg cramps rofecoxib [From Vioxx] Allergy Itching, Verified 03/08/24 14:21 leg cramps terfenadine [From Seldane] Allergy Rash/Hives Verified 03/08/24 14:21 vancomycin Allergy Rash/Hives/Swelling Verified 03/08/24 14:21 @IV site calcium carbonate [From DHEA] AdvReac Chest Pain Verified 03/08/24 14:21 calcium phosphate,dibasic AdvReac Chest Pain Verified 03/08/24 14:21 [From DHEA] clindamycin AdvReac muscle Verified 03/08/24 14:21 cramps clonidine AdvReac fast Verified 03/08/24 14:21 heartbeat, migraine dextromethorphan HBr AdvReac face/neck Verified 03/08/24 14:21 [From NyQuil] flushing diazepam [From Valium] AdvReac Nausea & Verified 03/08/24 14:21 Vomiting divalproex sodium AdvReac Nausea & Verified 03/08/24 14:21 [From Depakote] Vomiting doxylamine [From NyQuil] AdvReac face "beet Verified 03/08/24 14:21 red", elevated temp. ibuprofen [From Motrin] AdvReac abdominal Verified 03/08/24 14:21 & muscle cramps indomethacin [From Indocin] AdvReac Abdominal Verified 03/08/24 14:21 Pain,N/V ketorolac tromethamine AdvReac "built up Verified 03/08/24 14:21 [From Toradol] in system", had to be given something to reverse lorazepam [From Ativan] AdvReac Nausea & Verified 03/08/24 14:21 Vomiting memantine [From Namenda] AdvReac Itching Verified 03/08/24 14:21 metoclopramide HCl AdvReac muscle Verified 03/08/24 14:21 [From Reglan] cramps nortriptyline [From Pamelor] AdvReac Chest Pain Verified 03/08/24 14:21 prasterone (DHEA) [From DHEA] AdvReac Chest Pain Verified 03/08/24 14:21 prochlorperazine AdvReac leg Verified 03/08/24 14:21 [From Compazine] cramping propranolol AdvReac Chest Pain Verified 03/08/24 14:21 pseudoephedrine HCl AdvReac face "beet Verified 03/08/24 14:21 [From NyQuil] red", elevated temp. quetiapine [From Seroquel] AdvReac leg Verified 03/08/24 14:21 cramping sumatriptan [From Imitrex] AdvReac migrane Verified 03/08/24 14:21 sumatriptan succinate AdvReac migrane Verified 03/08/24 14:21 [From Imitrex] topiramate [From Topamax] AdvReac "built up Verified 03/08/24 14:21 in system", had to be given something to reverse tramadol AdvReac Nausea & Verified 03/08/24 14:21 Vomiting/LEG CRAMPS/HEART FLUTTERS trazodone AdvReac "built up Verified 03/08/24 14:21 in system", had to be given something to reverse zolpidem tartrate AdvReac "Became Verified 03/08/24 14:21 [From Ambien] violent with no memory" zonisamide [From Zonegran] AdvReac inability Verified 03/08/24 14:21 to eat artificial sweetener AdvReac SEVERE Uncoded 03/08/24 14:21 MIGRAINE HEADACHE prosyn AdvReac Itching Uncoded 03/08/24 14:21 Physical Exam Vitals: Vital Signs Temp Pulse Pulse Pulse Resp BP BP 03/09/24 08:08 03/09/24 07:10 97.3 F L 77 16 118/82 03/09/24 06:29 75 03/09/24 05:07 76 03/09/24 03:46 97.6 F 85 17 03/08/24 22:58 97.8 F 79 18 03/08/24 22:47 97.5 F L 78 18 145/102 03/08/24 18:25 71 16 03/08/24 18:20 135 H 03/08/24 17:50 72 134/90 03/08/24 15:22 90 16 144/112 03/08/24 12:21 98.1 F 139 H 24 139/71 BP Pulse Ox 03/09/24 08:08 95 03/09/24 07:10 100 03/09/24 06:29 98/67 03/09/24 05:07 97/66 03/09/24 03:46 93/65 95 03/08/24 22:58 136/97 97 03/08/24 22:47 97 03/08/24 18:25 99 03/08/24 18:20 03/08/24 17:50 99 03/08/24 15:22 97 03/08/24 12:21 96 Intake and Output 03/08/24 03/09/24 03/09/24 22:59 06:59 14:59 Other: # Voids 1 Weight 75 kg PHYSICAL EXAMINATION: Patient is lying in the bed comfortably, no acute distress, awake alert and oriented.. HEENT: Normocephalic. Neck is supple. Pupils reactive. Nostrils clear. Oral cavity is moist. Neck reveals no JVD, carotid bruits, or thyromegaly. CHEST EXAMINATION: Trachea is central. Symmetrical expansion. Lung martin clear to auscultation and percussion. CARDIAC: Normal S1, S2 with no gallops. No murmurs ABDOMEN: Soft. Bowel sounds normal. No organomegaly. No abdominal bruits. Extremities: reveal no edema. No clubbing or cyanosis Neurologically awake, alert, oriented x3 with well-coordinated movements. No focal deficits noted Skin: No rash or skin lesions. Psychiatric: Coperative. Nonsuicidal Musculoskeletal: No joint swelling or deformity. Normal range of motion. Results CBC & Chem 7: 03/09/24 05:34 03/09/24 05:34 Labs: Abnormal Lab Results - Last 24 Hours (Table) 03/08/24 03/08/24 03/09/24 Range/Units 12:41 12:41 05:34 RBC 3.49 L (4.10-5.20) X 10*6/uL Hgb 11.7 L (12.0-15.0) g/dL Hct 36.2 L (37.2-46.3) % MCV 103.7 H (80.0-97.0) FL MCH 33.5 H (27.0-32.0) pg APTT 38.6 H (22.0-30.0) sec BUN (9.0-27.0) mg/dL BUN/Creatinine Ratio (12.00-20.00) Ratio Glucose 164 H (74-99) mg/dL Calcium (8.7-10.3) mg/dL Total Protein (6.2-8.2) g/dL Albumin (3.8-4.9) g/dL 03/09/24 Range/Units 05:34 RBC (4.10-5.20) X 10*6/uL Hgb (12.0-15.0) g/dL Hct (37.2-46.3) % MCV (80.0-97.0) FL MCH (27.0-32.0) pg APTT (22.0-30.0) sec BUN 5.7 L (9.0-27.0) mg/dL BUN/Creatinine Ratio 6.33 L (12.00-20.00) Ratio Glucose (74-99) mg/dL Calcium 8.4 L (8.7-10.3) mg/dL Total Protein 5.7 L (6.2-8.2) g/dL Albumin 3.6 L (3.8-4.9) g/dL Thrombosis Risk Factor Assmnt - DVT/VTE Prophylaxis DVT/VTE Prophylaxis: Pharmacologic Prophylaxis ordered - Choose All That Apply Any of the Below Risk Factors Present?: Yes Each Factor Represents 1 point: Age 41-60 years, Obesity (BMI >25) Other Risk Factors: No Other congenital or acquired thrombophilia - If yes, enter type in comment: No Thrombosis Risk Factor Assessment Total Risk Factor Score: 2 Thrombosis Risk Factor Assessment Level: Low Risk Assessment and Plan Assessment: Atypical chest pain likely GI related with history of hiatal hernia. Ruled out ACS. Most recent cardiac catheterization in May 2022. Nausea vomiting and epigastric abdominal pain with possible gastritis versus esophageal stricture. 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 Patient uses electric wheelchair Seizure disorder Chronic back pain history of nerve blocks Hypertension Hyperlipidemia Complex PTSD Hiatal hernia with history of prior esophageal stricture dilatation at [facility] in summer 2023 Prior history of smoking Plan: Patient will be continued on IV hydration. Symptomatic management for nausea and vomiting. ACS ruled out. Serial EKG and troponin x 3 negative. Continue with PPI. If symptoms persist will consult general surgery for further evaluation. Follow-up CBC and BMP. Continue home medications and follow-up closely. Time with Patient: Greater than 30
[2024-03-10 08:31] LABS: Basophils # (A) 0.05 X 10*3/uL (0.00-0.10); Basophils % (A) 0.9 %; Eosinophils # (A) 0.19 X 10*3/uL (0.04-0.35); Eosinophils % (A) 3.5 %; HCT 35.4 % (37.2-46.3); HGB 11.3 g/dL (12.0-15.0); Lymphocytes # (A) 1.94 X 10*3/uL (0.90-5.00); Lymphocytes % (A) 36.1 %; MCH 33.1 pg (27.0-32.0); MCHC 31.9 g/dL (32.0-37.0); MCV 103.8 FL (80.0-97.0); Mean Platelet Volume 12.1 FL (9.5-12.2); Monocytes # (A) 0.53 X 10*3/uL (0.20-1.00); Monocytes % (A) 9.9 %; NRBC Per 100 WBC 0 X 10*3/uL (0.00-0.01); Neutrophils # (A) 2.66 X 10*3/uL (1.80-7.70); Neutrophils % (A) 49.4 %; Platelet Count 196 X 10*3/uL (140-440); RBC 3.41 X 10*6/uL (4.10-5.20); RDW 13.2 % (11.5-14.5); WBC 5.38 X 10*3/uL (4.50-10.00)
[2024-03-10 08:57] LABS: BUN/Creat Ratio 5.11 Ratio (12.00-20.00); Blood Urea Nitrogen 4.6 mg/dL (9.0-27.0); Glucose 100 mg/dL (70-110)
[2024-03-10 08:58] LABS: Calcium 8.5 mg/dL (8.7-10.3); Carbon Dioxide 26.1 mmol/L (21.6-31.8); Chloride 109 mmol/L (96-109); Potassium 3.9 mmol/L (3.5-5.5); Sodium 144 mmol/L (135-145)
--- NOTE | 2024-03-10 10:01 | P.PN ---
Subjective HISTORY OF PRESENT ILLNESS: This is a 54-year-old female patient of Dr. 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 We have been asked to evaluate the patient for chest pain. Patient has been doing okay however over the last 1 month she has had fairly persistent chest pain which will be in the epigastric, substernal area. She states is constant and not really improved with any medications. She has tried GI cocktails in the past. This is similar to her episode where she was admitted in January. At that time she had a Lexiscan stress test performed which showed no inducible ischemia. She does admit to GI issues with prior hiatal hernia and mesh as well as esophageal dilation at [facility] from summer 2023. She is scheduled for SVT ablation in 1-2 weeks. Cardiac catheterization history May 2022 with stenting of the LAD Tilt table test August 2022 did not reveal evidence of neurocardiogenic syncope dysautonomia Echocardiogram performed August 2022 revealed EF 55 to 60%, LVH, mild pulmonary hypertension, trace mitral regurgitation, trace to mild tricuspid regurgitation and trace pulmonic regurgitation 03/10/2024 Patient examined this morning at the bedside. Patient continues to report chest discomfort that appears to be more in the epigastric region. She also reports nausea this morning. Denies shortness of breath. General surgery has been consulted to evaluate the patient. PHYSICAL EXAM: VITAL SIGNS: Reviewed. GENERAL: Well-developed in no acute distress. NECK: Supple. No JVD or thyromegaly LUNGS: Respirations even and unlabored. Lungs essentially clear to auscultation bilaterally. HEART: Regular rate and rhythm. S1 and S2 heard. EXTREMITIES: Normal range of motion. No clubbing or cyanosis. Peripheral pulses intact. No lower extremity edema ASSESSMENT: Atypical chest pain, acute coronary syndrome ruled out. more likely GI source with symptoms persistent, not improved with antianginals and additionally having nausea and decreased appetite. 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 Await evaluation and recommendations. No further inpatient recommendations from a cardiac standpoint We will sign off. Please reconsult if needed. Nurse practitioner note has been reviewed by physician. Signing provider agrees with the documented findings, assessment, and plan of care documented by MEDICAL CERTIFICATION SPECIALIST as a scribe. Objective - Vital Signs Vital signs: Vital Signs Temp 98.3 F 03/10/24 07:25 Pulse 72 03/10/24 07:25 Resp 17 03/10/24 07:25 BP 140/79 03/10/24 07:25 Pulse Ox 97 03/10/24 07:25 FiO2 Intake & Output 03/09/24 03/10/24 03/10/24 18:59 06:59 18:59 Intake Total 236 444 Balance 236 444 Weight 75 kg Intake: Oral 236 444 Other: # Voids 4 2 # Bowel Movements 0 1 - Labs CBC & Chem 7: 03/10/24 04:14 03/10/24 04:14 Labs: Abnormal Lab Results - Last 24 Hours (Table) 03/10/24 03/10/24 Range/Units 04:14 04:14 RBC 3.41 L (4.10-5.20) X 10*6/uL Hgb 11.3 L (12.0-15.0) g/dL Hct 35.4 L (37.2-46.3) % MCV 103.8 H (80.0-97.0) FL MCH 33.1 H (27.0-32.0) pg MCHC 31.9 L (32.0-37.0) g/dL BUN 4.6 L (9.0-27.0) mg/dL BUN/Creatinine Ratio 5.11 L (12.00-20.00) Ratio Calcium 8.5 L (8.7-10.3) mg/dL
--- NOTE | 2024-03-10 13:09 | P.GSCN ---
History of Present Illness Consult date: 03/10/24 History of present illness: CHIEF COMPLAINT: Abdominal pain with nausea vomiting and chest pain HISTORY OF PRESENT ILLNESS: This is a 54-year-old female with a history of recurrent nausea vomiting, epigastric pain and chest pain. Patient reports that this episode has lasted for about a week. She also reports having difficulty with swallowing. She reports difficulty swallowing both liquids and solids as well as her pills. She reports that she will have regurgitation after taking and even water. She was seen by cardiology in regards to the chest pain and they have signed off felt symptoms may be more related to GI symptoms. Patient does have a history of a hiatal hernia repair in 2014 as well as history of esophageal strictures in which she had a EGD with esophageal dilation at [facility] in September 2023. Patient reports about a 15 pound weight loss over the last 3 weeks she contributes it to decrease in oral intake. PAST MEDICAL HISTORY: Hyperlipidemia, Hypertension, Seizure Disorder, Supraventricular Tachycardia (SVT), migraines, chronic back pain, [place], anxiety, bipolar, PTSD, panic disorder PAST SURGICAL HISTORY: Hiatal hernia repair, esophageal dilation in September 2023, appendectomy, Section, Cholecystectomy, Heart Catheterization, Heart Catheterization With Stent, Hernia Repair, Hysterectomy, Orthopedic Surgery, Tonsillectomy, Tubal Ligation MEDICATIONS: See below ALLERGIES: See below SOCIAL HISTORY: No illicit drug use. REVIEW OF SYSTEMS: CONSTITUTIONAL: Denies fever or chills. HEENT: Denies blurred vision, vision changes, or eye pain. Denies hemoptysis CARDIOVASCULAR: Denies chest pain or pressure. RESPIRATORY: No shortness of breath. GASTROINTESTINAL: See HPI for pertinent findings HEMATOLOGIC: Denies bleeding disorders. GENITOURINARY: Denies any blood in urine or increased urinary frequency. SKIN: Denies pruitis. Denies rash. PHYSICAL EXAM: VITAL SIGNS: Reviewed GENERAL: Well-developed in no acute distress. HEENT: No sclera icterus. Extraocular movements grossly intact. Moist buccal mucosa. Head is atraumatic, normocephalic. No nasal drainage. ABDOMEN: Soft. Nondistended. Mild tenderness palpation of epigastric area NEUROLOGIC: Alert and oriented. Cranial nerves II through XII grossly intact. LABORATORY DATA: WBC 5.38 Hgb 11.3 platelets 196 Sodium 144 potassium 3.9 creatinine 0.9 IMAGING: ASSESSMENT: 1. Epigastric pain with nausea and vomiting. History of esophageal stricture requiring EGD with dilation in September 2023 at [facility]. History of hiatal hernia with a hiatal hernia repair in 2014 PLAN: -Upper GI ordered for evaluation of the dysphagia and vomiting -Continue to monitor -Downgrade diet to full liquids Physician Field Administrative Assistant note has been reviewed by physician. Signing provider agrees with the documented findings, assessment, and plan of care. Past Medical History Past Medical History: Hyperlipidemia, Hypertension, Seizure Disorder, Supraventricular Tachycardia (SVT) Additional Past Medical History / Comment(s): Migraines, viral meningitis x3 as a child, 1995, 2000, chronic back pain, nerve blocks (neck and occipital nerve) 08/2016 and 12/2016. Last seizure 10/10/2020, "ABSENT SEIZURES. HX TACHYCARDIA, Complex PTSD. gillean barre History of Any Multi-Drug Resistant Organisms: None Reported Past Surgical History: Appendectomy, Section, Cholecystectomy, Heart Catheterization, Heart Catheterization With Stent, Hernia Repair, Hysterectomy, Orthopedic Surgery, Tonsillectomy, Tubal Ligation Additional Past Surgical History / Comment(s): Hiatal Hernia, umbilical hernia repair, left rotator cuff repair, bilateral knee scopes, pain clinic procedures- occipital nerve block. abd exploratory sx(endometreosis), 3 abd scopes 1981, 1989, 1991), lumbar puncture. EGD. nerve biopsy, salvalry gland biospy, Port (Right side 2018, left side 2020), Esophogeal dilation(2023) Past Anesthesia/Blood Transfusion Reactions: No Reported Reaction Additional Past Anesthesia/Blood Transfusion Reaction / Comm: Claustrophobic Date of Last Stent Placement:: 06/03/2022 Smoking Status: Former smoker - Past Family History Mother Family Medical History: Cancer, Dementia, Diabetes Mellitus, GERD/Reflux, Hyperlipidemia, Hypertension, Thyroid Disorder, Vascular Disorder Additional Family Medical History / Comment(s): CABG x2, stents Father History Unknown: Yes Family Medical History: No Reported History Medications and Allergies Home Medications Medication Instructions Recorded Confirmed Type Omeprazole [PriLOSEC] 20 mg PO HS 12/15/20 03/08/24 History Thiamine [Vitamin B-1] 100 mg PO DAILY 01/04/21 03/08/24 History Atorvastatin [Lipitor] 40 mg PO HS 07/20/21 03/08/24 History DULoxetine HCL [Cymbalta] 60 mg PO HS 07/20/21 03/08/24 History Atogepant [Qulipta] 60 mg PO HS 06/03/22 03/08/24 History Cyclobenzaprine [Flexeril] 10 mg PO TID PRN 06/03/22 03/08/24 History HYDROcodone/APAP 10-325MG [[place] 1 tab PO TID 06/03/22 03/08/24 History 10-325] Aspirin 81 mg PO HS 08/29/22 03/08/24 History Cyanocobalamin (Vitamin B-12) 1,000 mcg PO DAILY 09/07/23 03/08/24 History [Vitamin B-12] Multivitamins, Thera [Multivitamin 1 tab PO HS 09/07/23 03/08/24 History (formulary)] Zavegepant HCl [Zavzpret] 1 spray NASAL DAILY PRN 09/07/23 03/08/24 History Potassium Chloride ER [K-Dur 10] 10 meq PO BID 12/10/23 03/08/24 History QUEtiapine FUMARATE [SEROquel] 300 mg PO HS 01/10/24 03/08/24 History Metoprolol Tartrate [Lopressor] 50 mg PO BID #60 tab 01/22/24 03/08/24 Rx Allergies Allergy/AdvReac Type Severity Reaction Status Date / Time dihydroergotamine Allergy Unknown Unknown Verified 03/08/24 14:21 [From Migranal] buprenorphine Allergy Rash/Hives Verified 03/08/24 14:21 gabapentin [From Neurontin] Allergy Itching/Swe Verified 03/08/24 14:21 lling latex Allergy Anaphylaxis Verified 03/08/24 14:21 naproxen [From Naprosyn] Allergy Anaphylaxis Verified 03/08/24 14:21 Penicillins Allergy Anaphylaxis Verified 03/08/24 14:21 prednisone Allergy Swelling Verified 03/08/24 14:21 quetiapine fumarate Allergy Itching, Verified 03/08/24 14:21 [From Seroquel] leg cramps rofecoxib [From Vioxx] Allergy Itching, Verified 03/08/24 14:21 leg cramps terfenadine [From Seldane] Allergy Rash/Hives Verified 03/08/24 14:21 vancomycin Allergy Rash/Hives/Swelling Verified 03/08/24 14:21 @IV site calcium carbonate [From DHEA] AdvReac Chest Pain Verified 03/08/24 14:21 calcium phosphate,dibasic AdvReac Chest Pain Verified 03/08/24 14:21 [From DHEA] clindamycin AdvReac muscle Verified 03/08/24 14:21 cramps clonidine AdvReac fast Verified 03/08/24 14:21 heartbeat, migraine dextromethorphan HBr AdvReac face/neck Verified 03/08/24 14:21 [From NyQuil] flushing diazepam [From Valium] AdvReac Nausea & Verified 03/08/24 14:21 Vomiting divalproex sodium AdvReac Nausea & Verified 03/08/24 14:21 [From Depakote] Vomiting doxylamine [From NyQuil] AdvReac face "beet Verified 03/08/24 14:21 red", elevated temp. ibuprofen [From Motrin] AdvReac abdominal Verified 03/08/24 14:21 & muscle cramps indomethacin [From Indocin] AdvReac Abdominal Verified 03/08/24 14:21 Pain,N/V ketorolac tromethamine AdvReac "built up Verified 03/08/24 14:21 [From Toradol] in system", had to be given something to reverse lorazepam [From Ativan] AdvReac Nausea & Verified 03/08/24 14:21 Vomiting memantine [From Namenda] AdvReac Itching Verified 03/08/24 14:21 metoclopramide HCl AdvReac muscle Verified 03/08/24 14:21 [From Reglan] cramps nortriptyline [From Pamelor] AdvReac Chest Pain Verified 03/08/24 14:21 prasterone (DHEA) [From DHEA] AdvReac Chest Pain Verified 03/08/24 14:21 prochlorperazine AdvReac leg Verified 03/08/24 14:21 [From Compazine] cramping propranolol AdvReac Chest Pain Verified 03/08/24 14:21 pseudoephedrine HCl AdvReac face "beet Verified 03/08/24 14:21 [From NyQuil] red", elevated temp. quetiapine [From Seroquel] AdvReac leg Verified 03/08/24 14:21 cramping sumatriptan [From Imitrex] AdvReac migrane Verified 03/08/24 14:21 sumatriptan succinate AdvReac migrane Verified 03/08/24 14:21 [From Imitrex] topiramate [From Topamax] AdvReac "built up Verified 03/08/24 14:21 in system", had to be given something to reverse tramadol AdvReac Nausea & Verified 03/08/24 14:21 Vomiting/LEG CRAMPS/HEART FLUTTERS trazodone AdvReac "built up Verified 03/08/24 14:21 in system", had to be given something to reverse zolpidem tartrate AdvReac "Became Verified 03/08/24 14:21 [From Ambien] violent with no memory" zonisamide [From Zonegran] AdvReac inability Verified 03/08/24 14:21 to eat artificial sweetener AdvReac SEVERE Uncoded 03/08/24 14:21 MIGRAINE HEADACHE prosyn AdvReac Itching Uncoded 03/08/24 14:21 Surgical - Exam Vital Signs Temp Pulse Resp BP Pulse Ox 98.1 F 139 H 24 139/71 96 03/08/24 12:21 03/08/24 12:21 03/08/24 12:21 03/08/24 12:21 03/08/24 12:21 Results - Labs 03/10/24 04:14 03/10/24 04:14 Abnormal Lab Results - Last 24 Hours (Table) 03/10/24 03/10/24 Range/Units 04:14 04:14 RBC 3.41 L (4.10-5.20) X 10*6/uL Hgb 11.3 L (12.0-15.0) g/dL Hct 35.4 L (37.2-46.3) % MCV 103.8 H (80.0-97.0) FL MCH 33.1 H (27.0-32.0) pg MCHC 31.9 L (32.0-37.0) g/dL BUN 4.6 L (9.0-27.0) mg/dL BUN/Creatinine Ratio 5.11 L (12.00-20.00) Ratio Calcium 8.5 L (8.7-10.3) mg/dL Diabetes panel 03/10/24 Range/Units 04:14 Sodium 144 (135-145) mmol/L Potassium 3.9 (3.5-5.5) mmol/L Chloride 109 (96-109) mmol/L Carbon Dioxide 26.1 (21.6-31.8) mmol/L BUN 4.6 L (9.0-27.0) mg/dL Creatinine 0.9 (0.6-1.5) mg/dL Glucose 100 (70-110) mg/dL Calcium 8.5 L (8.7-10.3) mg/dL Calcium panel 03/10/24 Range/Units 04:14 Calcium 8.5 L (8.7-10.3) mg/dL Pituitary panel 03/10/24 Range/Units 04:14 Sodium 144 (135-145) mmol/L Potassium 3.9 (3.5-5.5) mmol/L Chloride 109 (96-109) mmol/L Carbon Dioxide 26.1 (21.6-31.8) mmol/L BUN 4.6 L (9.0-27.0) mg/dL Creatinine 0.9 (0.6-1.5) mg/dL Glucose 100 (70-110) mg/dL Calcium 8.5 L (8.7-10.3) mg/dL Adrenal panel 03/10/24 Range/Units 04:14 Sodium 144 (135-145) mmol/L Potassium 3.9 (3.5-5.5) mmol/L Chloride 109 (96-109) mmol/L Carbon Dioxide 26.1 (21.6-31.8) mmol/L BUN 4.6 L (9.0-27.0) mg/dL Creatinine 0.9 (0.6-1.5) mg/dL Glucose 100 (70-110) mg/dL Calcium 8.5 L (8.7-10.3) mg/dL
--- NOTE | 2024-03-11 11:04 | FL ---
EXAMINATION TYPE: FL UGI w esophagus DATE OF EXAM: 03/11/2024 9:41 AM COMPARISON: None CLINICAL INDICATION:Female, 54 years old with history of Dysphagia, vomiting; TECHNIQUE: The procedure was explained and patient history elicited. All patient questions were ans wered prior to start of procedure. A quality assistant radiograph of the abdomen was also reviewed. Multiple flu oroscopic spot images of the esophagus, stomach and duodenum were obtained following ingestion of liq uid barium and EZ-gas crystals. Fluoroscopic time:2 min 20 min Fluoroscopic images:0 Radiographs taken: 120 DAP: not reported [id number] FINDINGS: Upper GI examination: The quality assistant abdominal radiograph demonstrates a normal bowel gas pattern without dilated loops of small or large bowel. There is no evidence for organomegaly or pneumoperitoneum. No abnormal calcificat ions. The visualized osseous structures are intact. Right upper quadrant cholecystectomy clips. Cardi ac conduction device present. The esophagus demonstrates normal primary and secondary peristalsis. Tertiary contractions are seen w ith delayed emptying of the esophageal contents. Patient required multiple additional swallows of con trast to get barium in the gastric lumen. Each swallow incompletely emptied the esophagus. The esopha geal mucosa is otherwise smooth without evidence of focal stricture, ulceration, or abnormal outpouch ing. No gastroesophageal reflux disease was identified. The stomach and duodenum demonstrate a normal course and contour. There is no evidence of focal maria e mee or duodenal ulceration, stricture, or abnormal outpouching. IMPRESSION: Severe Esophageal dysmotility. [facility], , 03/11/2024 11:01 AM
--- NOTE | 2024-03-11 13:59 | P.PN ---
Subjective Progress Note Date: 03/11/24 SURGICAL PROGRESS NOTE CHIEF COMPLAINT: Epigastric abdominal pain HISTORY OF PRESENT ILLNESS: Patient continues to have epigastric abdominal pain with nausea. Upper GI completed showing severe esophageal dysmotility. Reports tertiary contractions are seen with delayed emptying of the esophageal contents. Patient required multiple additional swallows of contrast to get barium in the gastric lumen. Patient seen and examined with Dr. Trejo PHYSICAL EXAM: VITAL SIGNS: Reviewed. GENERAL: Well-developed in no acute distress. HEENT: No sclera icterus. Extraocular movements grossly intact. Moist buccal mucosa. Head is atraumatic, normocephalic. ABDOMEN: Soft. Nondistended. NEUROLOGIC: Alert and oriented. Cranial nerves II through XII grossly intact. ASSESSMENT: 1. Epigastric abdominal pain with nausea and vomiting. Upper GI reports severe esophageal dysmotility and evidence of tertiary contractions. No evidence of hiatal hernia. No evidence of obstruction. 2. Dysphagia PLAN: -Advance diet to dysphagia chopped diet -If patient tolerating diet anticipate discharge home tomorrow -Recommend EGD outpatient on Friday with Dr. Trejo Physician Dip Tube Assembler Machine note has been reviewed by physician. Signing provider agrees with the documented findings, assessment, and plan of care. Objective - Vital Signs Vital signs: Vital Signs Temp 98.1 F 03/11/24 07:00 Pulse 89 03/11/24 07:00 Resp 17 03/11/24 07:00 BP 160/98 03/11/24 07:00 Pulse Ox 96 03/11/24 07:57 FiO2 Intake & Output 03/10/24 03/11/24 03/11/24 18:59 06:59 18:59 Intake Total 784 1025 118 Balance 784 1025 118 Intake: Intake, IV Titration 225 Amount Sodium Chloride 0.9% 1, 225 000 ml @ 75 mls/hr IV . [id number] PAMELA Rx#:[id number] Oral 784 800 118 Other: # Voids 5 2 # Bowel Movements 0 - Labs CBC & Chem 7: 03/10/24 04:14 03/10/24 04:14
[2024-03-11] MEDS: DICYCLOMINE 10 MG CAP PO SCH (14:05)
--- NOTE | 2024-03-11 23:54 | P.PN ---
Subjective Progress Note Date: 03/10/24 Patient is a 54-year-old male with a known history of hypertension, hyperemia, SVT, history of seizure disorder, migraine headaches, chronic back pain, history of nerve blocks, complex PTSD, [place] syndrome and bilateral lower extremity weakness, coronary artery disease history of stent placement to mid LAD and prior history of smoking. Patient presents to ER with complaints of chest pain for about a week. Patient states she has been having nausea and vomiting and unable to keep down food for about a month. She started having epigastric pressure-like sensation/chest pain radiating to left side of neck. Associate with nausea. Also having vomiting. No complaints of shortness of breath. No dizziness or lightheadedness. No fever no chills. No cough or sputum production. Patient states that she is scheduled for ablation with her litigation coordinator in 8 days. EKG on admission showed sinus tachycardia. Chest x-ray showed no acute cardiopulmonary process. Laboratory data showed WBC 8.6 hemoglobin 14.0 and platelets 283 sodium 139 potassium 3.5 chloride 103 bicarb is 26 BUN 18 creatinine 0.86 and blood sugar 164. Liver enzymes are not elevated. Urinalysis is negative for infection. Influenza A B and RSV and COVID-19 PCR not detected. 03/10/2024 Patient still complaining of epigastric discomfort and nausea. No episodes of vomiting. Unable to eat very well. General surgery was consulted. Laboratory data showed WBC 5.3 hemoglobin 11.3 and platelets 196 BUN 4.6 and creatinine 0.9 and calcium 8.5. Cardiology is on board. Current medications reviewed. Objective - Vital Signs Vital signs: Vital Signs Temp 98.3 F 03/10/24 07:25 Pulse 72 03/10/24 07:25 Resp 17 03/10/24 07:25 BP 140/79 03/10/24 07:25 Pulse Ox 97 03/10/24 07:25 FiO2 Intake & Output 03/09/24 03/10/24 03/10/24 18:59 06:59 18:59 Intake Total 236 444 Balance 236 444 Weight 75 kg Intake: Oral 236 444 Other: # Voids 4 2 # Bowel Movements 0 1 - Exam PHYSICAL EXAMINATION: Patient is lying in the bed comfortably, no acute distress, awake alert and oriented.. HEENT: Normocephalic. Neck is supple. Pupils reactive. Nostrils clear. Oral cavity is moist. Neck reveals no JVD, carotid bruits, or thyromegaly. CHEST EXAMINATION: Trachea is central. Symmetrical expansion. Lung martin clear to auscultation and percussion. CARDIAC: Normal S1, S2 with no gallops. No murmurs ABDOMEN: Soft. Bowel sounds normal. No organomegaly. No abdominal bruits. Extremities: reveal no edema. No clubbing or cyanosis Neurologically awake, alert, oriented x3 with well-coordinated movements. No focal deficits noted Skin: No rash or skin lesions. Psychiatric: Coperative. Nonsuicidal Musculoskeletal: No joint swelling or deformity. Normal range of motion. - Labs CBC & Chem 7: 03/10/24 04:14 03/10/24 04:14 Labs: Abnormal Lab Results - Last 24 Hours (Table) 03/10/24 03/10/24 Range/Units 04:14 04:14 RBC 3.41 L (4.10-5.20) X 10*6/uL Hgb 11.3 L (12.0-15.0) g/dL Hct 35.4 L (37.2-46.3) % MCV 103.8 H (80.0-97.0) FL MCH 33.1 H (27.0-32.0) pg MCHC 31.9 L (32.0-37.0) g/dL BUN 4.6 L (9.0-27.0) mg/dL BUN/Creatinine Ratio 5.11 L (12.00-20.00) Ratio Calcium 8.5 L (8.7-10.3) mg/dL Assessment and Plan Assessment: Atypical chest pain likely GI related with history of hiatal hernia. Ruled out ACS. Most recent cardiac catheterization in May 2022. Nausea vomiting and epigastric abdominal pain with possible gastritis versus esophageal stricture. 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 Patient uses electric wheelchair Seizure disorder Chronic back pain history of nerve blocks Hypertension Hyperlipidemia Complex PTSD Hiatal hernia with history of prior esophageal stricture dilatation at [facility] in summer 2023 Prior history of smoking Plan: Patient will be continued on IV hydration. Symptomatic management for nausea and vomiting. ACS ruled out. Serial EKG and troponin x 3 negative. Continue with PPI. General surgery was consulted for further evaluation.. Follow-up CBC and BMP. Continue home medications and follow-up closely. Time with Patient: Greater than 30
--- NOTE | 2024-03-11 23:57 | P.PN ---
Subjective Progress Note Date: 03/11/24 Patient is a 54-year-old male with a known history of hypertension, hyperemia, SVT, history of seizure disorder, migraine headaches, chronic back pain, history of nerve blocks, complex PTSD, [place] syndrome and bilateral lower extremity weakness, coronary artery disease history of stent placement to mid LAD and prior history of smoking. Patient presents to ER with complaints of chest pain for about a week. Patient states she has been having nausea and vomiting and unable to keep down food for about a month. She started having epigastric pressure-like sensation/chest pain radiating to left side of neck. Associate with nausea. Also having vomiting. No complaints of shortness of breath. No dizziness or lightheadedness. No fever no chills. No cough or sputum production. Patient states that she is scheduled for ablation with her heart coordinator in 8 days. EKG on admission showed sinus tachycardia. Chest x-ray showed no acute cardiopulmonary process. Laboratory data showed WBC 8.6 hemoglobin 14.0 and platelets 283 sodium 139 potassium 3.5 chloride 103 bicarb is 26 BUN 18 creatinine 0.86 and blood sugar 164. Liver enzymes are not elevated. Urinalysis is negative for infection. Influenza A B and RSV and COVID-19 PCR not detected. 03/10/2024 Patient still complaining of epigastric discomfort and nausea. No episodes of vomiting. Unable to eat very well. General surgery was consulted. Laboratory data showed WBC 5.3 hemoglobin 11.3 and platelets 196 BUN 4.6 and creatinine 0.9 and calcium 8.5. Cardiology is on board. 03/11/2024 Patient is sitting in the bed. Awake alert and oriented. Patient had upper GI series showed severe esophageal dysmotility. Reports tertiary contractions are seen with delayed emptying of the esophageal contents. Patient required multiple additional swallows of contrast to get barium in the gastric lumen. Patient was started on oral diet and advance as tolerated. Laboratory data reviewed. Anticipate discharge in the next 24 hours with more clinical improvement. Current medications reviewed. Objective - Vital Signs Vital signs: Vital Signs Temp 98.3 F 03/11/24 19:18 Pulse 72 03/11/24 19:18 Resp 17 03/11/24 19:18 BP 137/76 03/11/24 19:18 Pulse Ox 96 03/11/24 19:18 FiO2 Intake & Output 03/11/24 03/11/2403/12/24 06:59 18:59 06:59 Intake Total 1025 236 Balance 1025 236 Intake: Intake, IV Titration 225 Amount Sodium Chloride 0.9% 1, 225 000 ml @ 75 mls/hr IV . [id number] PAMELA Rx#:[id number] Oral 800 236 Other: # Voids 2 4 # Bowel Movements 0 - Exam PHYSICAL EXAMINATION: Patient is lying in the bed comfortably, no acute distress, awake alert and oriented.. HEENT: Normocephalic. Neck is supple. Pupils reactive. Nostrils clear. Oral cavity is moist. Neck reveals no JVD, carotid bruits, or thyromegaly. CHEST EXAMINATION: Trachea is central. Symmetrical expansion. Lung martin clear to auscultation and percussion. CARDIAC: Normal S1, S2 with no gallops. No murmurs ABDOMEN: Soft. Bowel sounds normal. No organomegaly. No abdominal bruits. Extremities: reveal no edema. No clubbing or cyanosis Neurologically awake, alert, oriented x3 with well-coordinated movements. No focal deficits noted Skin: No rash or skin lesions. Psychiatric: Coperative. Nonsuicidal Musculoskeletal: No joint swelling or deformity. Normal range of motion. - Labs CBC & Chem 7: 03/10/24 04:14 03/10/24 04:14 Assessment and Plan Assessment: Nausea vomiting and epigastric abdominal pain.upper GI series showed severe esophageal dysmotility. Atypical chest pain likely GI related with history of hiatal hernia. Ruled out ACS. Most recent cardiac catheterization in May 2022. 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 Patient uses electric wheelchair Seizure disorder Chronic back pain history of nerve blocks Hypertension Hyperlipidemia Complex PTSD Hiatal hernia with history of prior esophageal stricture dilatation at [facility] in summer 2023 Prior history of smoking Plan: Patient will be continued on IV hydration. Symptomatic management for nausea and vomiting. ACS ruled out. Serial EKG and troponin x 3 negative. Continue with PPI. General surgery is on board. Status post upper GI series showed dysmotility.. Continue with Bentyl and advance diet as tolerated. Follow-up CBC and BMP. Continue home medications and follow-up closely. Anticipate discharge in next 24 hours. Time with Patient: Greater than 30
[2024-03-12 07:20] VITALS: RESP 16
--- NOTE | 2024-03-12 10:38 | P.PN ---
Subjective Progress Note Date: 03/12/24 SURGICAL PROGRESS NOTE CHIEF COMPLAINT: Epigastric abdominal pain HISTORY OF PRESENT ILLNESS: Patient continues to have epigastric abdominal pain with nausea. She did eat her oatmeal this morning. Upper GI completed showing severe esophageal dysmotility. Reports tertiary contractions are seen with de layed emptying of the esophageal contents. Patient required multiple additional swallows of contrast to get barium in the gastric lumen. Afebrile. Patient did inform me that she is scheduled for cardiac ablation next Friday for her history of SVT. PHYSICAL EXAM: VITAL SIGNS: Reviewed. GENERAL: Well-developed in no acute distress. HEENT: No sclera icterus. Extraocular movements grossly intact. Moist buccal mucosa. Head is atraumatic, normocephalic. ABDOMEN: Soft. Nondistended. NEUROLOGIC: Alert and oriented. Cranial nerves II through XII grossly intact. ASSESSMENT: 1. Epigastric abdominal pain with nausea and vomiting. Upper GI reports severe esophageal dysmotility and evidence of tertiary contractions. No evidence of hiatal hernia. No evidence of obstruction. No evidence of GERD 2. Dysphagia PLAN: -Patient can be discharged from surgical standpoint with outpatient EGD on Friday with Dr. Trejo -If patient remains in hospital we will plan for inpatient EGD on Friday -Continue chopped diet Physician Right Of Way Worker note has been reviewed by physician. Signing provider agrees with the documented findings, assessment, and plan of care. Objective - Vital Signs Vital signs: Vital Signs Temp 97.5 F L 03/12/24 07:00 Pulse 73 03/12/24 07:00 Resp 16 03/12/24 07:00 BP 108/67 03/12/24 07:00 Pulse Ox 97 03/12/24 07:00 FiO2 Intake & Output 03/11/24 03/12/24 03/12/24 18:59 06:59 18:59 Intake Total 236 Balance 236 Intake: Oral 236 Other: Voiding Method Toilet # Voids 4 3 - Labs CBC & Chem 7: 03/10/24 04:14 03/10/24 04:14
[2024-03-12 10:43] LABS: Basophils # (A) 0.03 X 10*3/uL (0.00-0.10); Basophils % (A) 0.6 %; Eosinophils # (A) 0.19 X 10*3/uL (0.04-0.35); Lymphocytes # (A) 1.48 X 10*3/uL (0.90-5.00); MCH 32.7 pg (27.0-32.0); MCHC 31.4 g/dL (32.0-37.0); MCV 104.2 FL (80.0-97.0); Mean Platelet Volume 12.8 FL (9.5-12.2); Monocytes # (A) 0.46 X 10*3/uL (0.20-1.00); Monocytes % (A) 9.6 %; NRBC Per 100 WBC 0 X 10*3/uL (0.00-0.01); Neutrophils # (A) 2.61 X 10*3/uL (1.80-7.70); Neutrophils % (A) 54.6 %; Platelet Count 204 X 10*3/uL (140-440); RBC 3.36 X 10*6/uL (4.10-5.20); RDW 13.1 % (11.5-14.5); WBC 4.78 X 10*3/uL (4.50-10.00)
[2024-03-12 10:55] LABS: Calcium 8.8 mg/dL (8.7-10.3); Carbon Dioxide 30.1 mmol/L (21.6-31.8); Chloride 104 mmol/L (96-109); Glucose 90 mg/dL (70-110); Potassium 4.4 mmol/L (3.5-5.5); Sodium 144 mmol/L (135-145)
[2024-03-12] MEDS: HYDROcodone/APAP 10-325MG 1 EACH TAB PO PRN (12:42)
[2024-03-12 13:58] VITALS: BP 129/85; PULSE 72; TEMP 98
== END 2024-03-12 17:15 | disposition home or self-care (01) ==
LOC: EC 12:19 → INTOOBSV 14:36 → 6NMEDSUR 14:36
PROVIDERS: ADMIT Internal Medicine; ATTEND Internal Medicine
DX: R07.89 Other chest pain (principal); R11.2 Nausea with vomiting, unspecified; R10.13 Epigastric pain; R13.10 Dysphagia, unspecified; I25.10 Atherosclerotic heart disease of native coronary artery without angina pectoris; I47.10 Supraventricular tachycardia, unspecified; E78.5 Hyperlipidemia, unspecified; F31.9 Bipolar disorder, unspecified; F43.10 Post-traumatic stress disorder, unspecified; G40.909 Epilepsy, unspecified, not intractable, without status epilepticus; G89.29 Other chronic pain; I10 Essential (primary) hypertension; G43.909 Migraine, unspecified, not intractable, without status migrainosus; Z95.5 Presence of coronary angioplasty implant and graft; Z79.82 Long term (current) use of aspirin; Z87.891 Personal history of nicotine dependence; Z79.899 Other long term (current) drug therapy; Z82.49 Family history of ischemic heart disease and other diseases of the circulatory system; Z79.891 Long term (current) use of opiate analgesic; Z88.8 Allergy status to other drugs, medicaments and biological substances; Z88.0 Allergy status to penicillin; Z88.1 Allergy status to other antibiotic agents; Z87.19 Personal history of other diseases of the digestive system
CPT/HCPCS: 96376 ×5; 96372 ×6; 96361; 96374; 96375; 99285; 36415; 94760 ×2; 93005; 80053 ×2; 80048 ×2; 83690; 83735; 84484; 85025 ×4; 85610; 85730; 81003; 87636; 74240; 71046; G0378 ×5; J1200; J1644 ×5; J2405 ×4; J1171 ×5; J2470 ×5

== ENCOUNTER 2024-03-15 11:04 | Day surgery (SDC) | payer OTHER ==
[2024-03-15 12:15] VITALS: TEMP 97.9
[2024-03-15] MEDS: IV FLUID CONTINUATION 1,000 ML IV ONE (12:28)
[2024-03-15] MEDS ORDERED: LACTATED RINGERS 1,000 ML IV SCH (12:30)
[2024-03-15] MEDS: LABETALOL SYRINGE 5 MG/ML (4 ML SYR) IVP STA (12:31)
[2024-03-15] MEDS ORDERED: PROPOFOL 10 MG/ML 20 ML VIAL IV ONE (15:41)
[2024-03-15] MEDS ORDERED: LIDOCAINE 1% INJ 10MG/ML (20 ML MDV) ONE (15:41)
--- NOTE | 2024-03-15 15:41 | P.GSHP ---
History of Present Illness H&P Date: 03/15/24 Chief Complaint: dysphagia this a 54-year-old female with complaints of dysphagia. Patient presents today for EGD. Past Medical History Past Medical History: Hyperlipidemia, Hypertension, Seizure Disorder, Supraventricular Tachycardia (SVT) Additional Past Medical History / Comment(s): Migraines, viral meningitis x3 as a child, 1995, 2000, chronic back pain, nerve blocks (neck and occipital nerve) 08/2016 and 12/2016. Last seizure 10/10/2020, "ABSENT SEIZURES. HX TACHYCARDIA, Complex PTSD. gillean barre History of Any Multi-Drug Resistant Organisms: None Reported Past Surgical History: Appendectomy, Section, Cholecystectomy, Heart Catheterization, Heart Catheterization With Stent, Hernia Repair, Hysterectomy, Orthopedic Surgery, Tonsillectomy, Tubal Ligation Additional Past Surgical History / Comment(s): Hiatal Hernia, umbilical hernia repair, left rotator cuff repair, bilateral knee scopes, pain clinic procedures- occipital nerve block. abd exploratory sx(endometreosis), 3 abd scopes 1981, 1989, 1991), lumbar puncture. EGD. nerve biopsy, salvalry gland biospy, Port (Right side 2018, left side 2020), Esophogeal dilation(2023) Past Anesthesia/Blood Transfusion Reactions: No Reported Reaction Additional Past Anesthesia/Blood Transfusion Reaction / Comment(s): Claustrophobic Date of Last Stent Placement:: 06/03/2022 Additional Psychological History / Comment(s): lives at home witth - Past Family History Mother Family Medical History: Cancer, Dementia, Diabetes Mellitus, GERD/Reflux, Hyperlipidemia, Hypertension, Thyroid Disorder, Vascular Disorder Additional Family Medical History / Comment(s): CABG x2, stents Father History Unknown: Yes Family Medical History: No Reported History Medications and Allergies Home Medications Medication Instructions Recorded Confirmed Type Omeprazole [PriLOSEC] 20 mg PO HS 12/15/20 03/15/24 History Thiamine [Vitamin B-1] 100 mg PO DAILY 01/04/21 03/15/24 History Atorvastatin [Lipitor] 40 mg PO HS 07/20/21 03/15/24 History DULoxetine HCL [Cymbalta] 60 mg PO HS 07/20/21 03/15/24 History Atogepant [Qulipta] 60 mg PO HS 06/03/22 03/15/24 History Cyclobenzaprine [Flexeril] 10 mg PO TID PRN 06/03/22 03/15/24 History HYDROcodone/APAP 10-325MG [[place] 1 tab PO TID 06/03/22 03/15/24 History 10-325] Aspirin 81 mg PO HS 08/29/22 03/15/24 History Cyanocobalamin (Vitamin B-12) 1,000 mcg PO DAILY 09/07/23 03/15/24 History [Vitamin B-12] Multivitamins, Thera [Multivitamin 1 tab PO HS 09/07/23 03/15/24 History (formulary)] Zavegepant HCl [Zavzpret] 1 spray NASAL DAILY PRN 09/07/23 03/15/24 History Potassium Chloride ER [K-Dur 10] 10 meq PO BID 12/10/23 03/15/24 History QUEtiapine FUMARATE [SEROquel] 300 mg PO HS 01/10/24 03/15/24 History Metoprolol Tartrate [Lopressor] 50 mg PO BID #60 tab 01/22/24 03/15/24 Rx Dicyclomine [Bentyl] 10 mg PO QID 7 Days #28 cap 03/12/24 03/15/24 Rx Allergies Allergy/AdvReac Type Severity Reaction Status Date / Time dihydroergotamine Allergy Unknown Unknown Verified 03/15/24 11:57 [From Migranal] buprenorphine Allergy Rash/Hives Verified 03/15/24 11:57 gabapentin [From Neurontin] Allergy Itching/Swe Verified 03/15/24 11:57 lling latex Allergy Anaphylaxis Verified 03/15/24 11:57 naproxen [From Naprosyn] Allergy Anaphylaxis Verified 03/15/24 11:57 Penicillins Allergy Anaphylaxis Verified 03/15/24 11:57 prednisone Allergy Swelling Verified 03/15/24 11:57 quetiapine fumarate Allergy Itching, Verified 03/15/24 11:57 [From Seroquel] leg cramps rofecoxib [From Vioxx] Allergy Itching, Verified 03/15/24 11:57 leg cramps terfenadine [From Seldane] Allergy Rash/Hives Verified 03/15/24 11:57 vancomycin Allergy Rash/Hives/Swelling Verified 03/15/24 11:57 @IV site calcium carbonate [From DHEA] AdvReac Chest Pain Verified 03/15/24 11:57 calcium phosphate,dibasic AdvReac Chest Pain Verified 03/15/24 11:57 [From DHEA] clindamycin AdvReac muscle Verified 03/15/24 11:57 cramps clonidine AdvReac fast Verified 03/15/24 11:57 heartbeat, migraine dextromethorphan HBr AdvReac face/neck Verified 03/15/24 11:57 [From NyQuil] flushing diazepam [From Valium] AdvReac Nausea & Verified 03/15/24 11:57 Vomiting divalproex sodium AdvReac Nausea & Verified 03/15/24 11:57 [From Depakote] Vomiting doxylamine [From NyQuil] AdvReac face "beet Verified 03/15/24 11:57 red", elevated temp. ibuprofen [From Motrin] AdvReac abdominal Verified 03/15/24 11:57 & muscle cramps indomethacin [From Indocin] AdvReac Abdominal Verified 03/15/24 11:57 Pain,N/V ketorolac tromethamine AdvReac "built up Verified 03/15/24 11:57 [From Toradol] in system", had to be given something to reverse lorazepam [From Ativan] AdvReac Nausea & Verified 03/15/24 11:57 Vomiting memantine [From Namenda] AdvReac Itching Verified 03/15/24 11:57 metoclopramide HCl AdvReac muscle Verified 03/15/24 11:57 [From Reglan] cramps nortriptyline [From Pamelor] AdvReac Chest Pain Verified 03/15/24 11:57 prasterone (DHEA) [From DHEA] AdvReac Chest Pain Verified 03/15/24 11:57 prochlorperazine AdvReac leg Verified 03/15/24 11:57 [From Compazine] cramping propranolol AdvReac Chest Pain Verified 03/15/24 11:57 pseudoephedrine HCl AdvReac face "beet Verified 03/15/24 11:57 [From NyQuil] red", elevated temp. quetiapine [From Seroquel] AdvReac leg Verified 03/15/24 11:57 cramping sumatriptan [From Imitrex] AdvReac migrane Verified 03/15/24 11:57 sumatriptan succinate AdvReac migrane Verified 03/15/24 11:57 [From Imitrex] topiramate [From Topamax] AdvReac "built up Verified 03/15/24 11:57 in system", had to be given something to reverse tramadol AdvReac Nausea & Verified 03/15/24 11:57 Vomiting/LEG CRAMPS/HEART FLUTTERS trazodone AdvReac "built up Verified 03/15/24 11:57 in system", had to be given something to reverse zolpidem tartrate AdvReac "Became Verified 03/15/24 11:57 [From Ambien] violent with no memory" zonisamide [From Zonegran] AdvReac inability Verified 03/15/24 11:57 to eat steroids Allergy Swelling Uncoded 03/15/24 11:57 artificial sweetener AdvReac SEVERE Uncoded 03/15/24 11:57 MIGRAINE HEADACHE prosyn AdvReac Itching Uncoded 03/15/24 11:57 Surgical - Exam Vital Signs Temp Pulse Resp BP Pulse Ox 97.9 F 133 H 18 158/101 98 03/15/24 12:07 03/15/24 12:07 03/15/24 12:07 03/15/24 12:07 03/15/24 12:07 - General well developed, well nourished, no distress - Eyes PERRL - ENT normal pinna - Neck no masses - Respiratory normal expansion - Cardiovascular Rhythm: regular - Abdomen Abdomen: soft, non tender Assessment and Plan Assessment: dysphagia. We'll performEGD.
--- NOTE | 2024-03-15 15:55 | P.OP ---
Date of Procedure: 03/15/24 Preoperative Diagnosis: dysphagia Postoperative Diagnosis: antral gastritis Procedure(s) Performed: EGD with biopsy EGD with balloon dilatation of GE junction Anesthesia: MAC Surgeon: Dean Trejo Pathology: other (antrum) Condition: stable Disposition: PACU Description of Procedure: the patient's placed on the endoscopy table in the lateral position. He received IV sedation. The gastroscope placed oropharynx passed in the esophagus and stomach. Scope was then placed through the pylorus. The first and second portion of the duodenum appeared normal. Scope was then brought back the antrum was mildly inflamed. Scope was a corbin was made esophagus appeared normal. Due to the patient's symptoms dysphagia a 20 mm balloon was placed across the GE junction. There is no obvious stricture seen. The balloon was held in position for 3 minutes. The was withdrawn. The distal esophagus appeared normal. Proximal esophagus. Normal. Scope withdrawn for patient.
[2024-03-15 16:22] VITALS: BP 148/84; PULSE 102; RESP 16
== END 2024-03-15 16:44 | disposition home or self-care (01) ==
LOC: ORWHC2ENDO 11:04
PROVIDERS: ATTEND Surgery
DX: K29.50 Unspecified chronic gastritis without bleeding (principal); E78.5 Hyperlipidemia, unspecified; I10 Essential (primary) hypertension; G40.909 Epilepsy, unspecified, not intractable, without status epilepticus; I47.10 Supraventricular tachycardia, unspecified; I25.10 Atherosclerotic heart disease of native coronary artery without angina pectoris; G40.509 Epileptic seizures related to external causes, not intractable, without status epilepticus; Z90.49 Acquired absence of other specified parts of digestive tract; Z90.710 Acquired absence of both cervix and uterus; Z98.890 Other specified postprocedural states; Z83.3 Family history of diabetes mellitus; Z83.79 Family history of other diseases of the digestive system; Z82.49 Family history of ischemic heart disease and other diseases of the circulatory system; Z83.49 Family history of other endocrine, nutritional and metabolic diseases; Z88.8 Allergy status to other drugs, medicaments and biological substances; Z91.040 Latex allergy status; Z88.6 Allergy status to analgesic agent; Z88.1 Allergy status to other antibiotic agents; Z88.5 Allergy status to narcotic agent; Z88.2 Allergy status to sulfonamides; Z79.02 Long term (current) use of antithrombotics/antiplatelets; Z79.899 Other long term (current) drug therapy
CPT/HCPCS: 88305; 43239; 43249; J2003; J2704; J1920; C1726

== ENCOUNTER 2024-03-16 08:27 | Day surgery (SDC) | payer OTHER ==
[2024-03-15 09:33] VITALS: BMI 29.2
[~2024-03-16 08:27] MED LIST changes: -ACETAMINOPHEN TAB 500 MG TAB PO PRN; -HEPARIN SODIUM,PORCINE/PF 5,000 UNIT/0.5 ML SYRINGE SQ PRN; +LACTATED RINGERS 1,000 ML IV SCH
[2024-03-16] MEDS: IV FLUID CONTINUATION 1,000 ML IV ONE (09:50)
[2024-03-16] MEDS: SODIUM CHLORIDE 0.9% 1,000 ML IV SCH (09:50)
--- NOTE | 2024-03-16 11:12 | P.HPCAR ---
History of Present Illness This is Dr. Bustillos dictating an H/P on this patient The patient was interviewed and examined IMPRESSION / ASSESSMENT: Recurrent SVT, long RP, adenosine sensitive Recurrent breakthrough episodes Intolerant of multiple medications including propranolol CAD status post PCI to the LAD in 2022 History of recurrent syncope associated with palpitations PLAN: Diagnose EP study and SVT ablation HPI Patient continues to have recurrent SVT. She had an episode 2 days back when she was in the GI suite and she was treated with IV Lopressor She has a lot of GI problems and symptoms with recurrent nausea and sweatiness and vomiting Denies any recent chest discomfort dizziness lightheadedness ROS: No fever chills or rigors, no cough, phlegm or expectoration, no nausea, vomiting or diarrhea, no hematuria, dysuria, no musculoskeletal complaints, no strokes or seizures, no skin lesions. 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 Last seizure 10/10/2020, "ABSENT SEIZURES. HX TACHYCARDIA, Complex PTSD. gillean barre History of Any Multi-Drug Resistant Organisms: None Reported Past Surgical History: Appendectomy, Section, Cholecystectomy, Heart Catheterization, Heart Catheterization With Stent, Hernia Repair, Hysterectomy, Orthopedic Surgery, Tonsillectomy, Tubal Ligation Additional Past Surgical History / Comment(s): Hiatal Hernia, umbilical hernia repair, left rotator cuff repair, bilateral knee scopes, pain clinic procedures- occipital nerve block. abd exploratory sx(endometreosis), 3 abd scopes 1981, 1989, 1991), lumbar puncture. EGD-last done 03-15-24. nerve biopsy, salvalry gland biospy, Port (Right side 2018, left side 2020), Esophogeal dilation(2023) Past Anesthesia/Blood Transfusion Reactions: No Reported Reaction Additional Past Anesthesia/Blood Transfusion Reaction / Comment(s): Claustrophobic Date of Last Stent Placement:: 06/03/2022 Additional Psychological History / Comment(s): lives at home tracee - Past Family History Mother Family Medical History: Cancer, Dementia, Diabetes Mellitus, GERD/Reflux, Hyperlipidemia, Hypertension, Thyroid Disorder, Vascular Disorder Additional Family Medical History / Comment(s): CABG x2, stents Father History Unknown: Yes Family Medical History: No Reported History Physical Examination Vital Signs Temp Pulse Resp BP Pulse Ox 03/16/24 10:02 98.2 F 104 H 16 157/93 100 Intake and Output 03/15/24 03/16/24 03/16/24 22:59 06:59 14:59 Intake Total 0 Balance 0 Intake: IV 0 Other: Weight 67.4 kg Results Current Medications Generic Name Dose Route Start Last Admin Trade Name Thaddeusq PRN Reason Stop Dose Admin Sodium Chloride 1,000 mls @ 20 mls/hr 03/16/24 05:54 03/16/24 09:50 Saline 0.9% IV 04/15/24 05:53 20 mls/hr .Q24H PAMELA Administration Lactated Ringer's 1,000 mls @ 20 mls/hr 03/16/24 05:54 Lactated Ringers IV 04/15/24 05:53 .Q24H PAMELA Intake and Output 03/15/24 03/16/24 03/16/24 22:59 06:59 14:59 Intake Total 0 Balance 0 Intake: IV 0 Other: Weight 67.4 kg Patient Weight 03/17/24 06:59 Weight 67.4 kg
[2024-03-16] MEDS: LIDOCAINE 1% INJ 10MG/ML (20 ML MDV) SQ ONE (11:19)
[2024-03-16] MEDS: ROPIVACAINE 5 MG/ML 30 ML VIAL MISCELLANE ONE (11:22)
[2024-03-16] MEDS: HEPARIN SODIUM (1,000 UNIT/ML) 1,000 UNIT in SODIUM CHLORIDE 0.9% 1,000 ML IRRIGATION ONE (13:14)
[2024-03-16] MEDS: HEPARIN SODIUM,PORCINE 10,000 UNIT in SODIUM CHLORIDE 0.9% 1,000 ML IRRIGATION ONE (13:14)
[2024-03-16] MEDS ORDERED: ACETAMINOPHEN TAB 325 MG TAB PO PRN (13:36)
--- NOTE | 2024-03-16 13:43 | P.PRLE ---
RE: Shaniqua Garza Dear José Ruiz Saadia underwent a diagnostic EP study which revealed a high right atrial tachycardia at the base of the septal portion of the SVC, at the junction between the right atrial appendage and SVC. Successful ablation was performed in the tachycardia was rendered noninducible Hopefully she will have a significant improvement in her symptoms Thank you for entrusting me with the care of the patient Warm regards Sincerely Tahir Bustillos
--- NOTE | 2024-03-16 13:49 | P.EPPROC ---
- EP Procedure Note Electrophysiology Procedure Note: Diagnosis Recurrent SVT drug refractory and symptomatic Final diagnosis Easily inducible high right atrial tachycardia with double extrastimuli from the high right atrium Tachycardia focus at the base of the SVC on the septal aspect between the right atrial appendage and the SVC base Successful ablation in the tachycardia was rendered noninducible both on and off Isopril Details Patient was brought to the EP lab in a fasting state. Written informed consent was obtained prior to the procedure. Venous sheaths were placed in the right left femoral veins and following that diagnostic catheters were positioned in the high right atrium, coronary sinus, His bundle and right ventricle. A f comprehensive diagnostic EP study was performed on and off Isopril Sinus cycle length 580 ms, QRS 93 ms, MT interval 123 ms, QT interval 390 ms AH 59 and HV interval 35 ms Sinus node recovery times at 500 and 400 ms was 654 and 704 ms respectively. AV node Wenckebach block 270 ms Occasional right bundle branch block aberrancy and sometimes left bundle branch block aberrancy with atrial pacing Genoveva response to Para-Hisian pacing No evidence for delta waves antegradely both on and off Isopril Atrial extra stimulation was performed from the coronary sinus, and from the high right atrium and right ventricle Burst stimulation was performed from multiple sites The retrograde conduction was midline and decremental Tachycardia was induced with atrial extra stimulation from the high right atrium with double extrastimuli at 400/280/280 ms. Tachycardia cycle length ranged from 320-340 ms This had a Hytrulo pattern and with ventricular pacing the atrium and ventricle with dissociated A Penta ray catheter was then placed and 3D electroanatomic mapping was performed. Activation mapping was performed. Tachycardia was repeatedly induced while the high right atrium was mapped in detail. The earliest focus of the tachycardia with excellent unipolar signals is noted at the base of the SVC on the septal aspect in between the left atrial appendage and the SVC on the septal aspect of the ridge Mapping and ablation catheter was placed in the right atrium. RF ablation was performed at the earliest site of activation. Good contact force and power was used up to 40 W. The tachycardia was rendered noninducible with double and triple extrastimuli from the high right atrium High-dose Isopril was used and no spontaneous tachycardia was induced. Burst stimulation as well as atrial extra stimulation up to triple extrastimuli did not induce any further tachycardia All catheters were removed. Venous sheaths were removed and the puncture sites were sealed with Vascade device Patient tolerated procedure well without any acute complications Plan Reduce or discontinue beta-blockers
[2024-03-16] MEDS: ACETAMINOPHEN IV (For NPO) 1,000 MG in EMPTY BAG 1 BAG IVPB ONE (14:01)
[2024-03-16] MEDS: HYDROcodone/APAP 10-325MG 1 EACH TAB PO SCH (14:03)
[2024-03-16] MEDS: DICYCLOMINE 10 MG CAP PO SCH (17:59)
[2024-03-16] MEDS: NON FORMULARY DRUG (Atogepant [Qulipta] 60 MG Tablet) PO SCH (20:44)
[2024-03-16] MEDS: ATORVASTATIN 40 MG TAB PO SCH (20:59)
[2024-03-16] MEDS: PANTOPRAZOLE 40 MG TABLET PO SCH (20:59)
[2024-03-16] MEDS: DULoxetine HCL 60 MG CAPSULE.DR PO SCH (20:59)
[2024-03-16] MEDS: POTASSIUM CHLORIDE ER 10 MEQ TAB.ER.PRT PO SCH (20:59)
[2024-03-16] MEDS: CYCLOBENZAPRINE 10 MG TAB PO PRN (21:00)
[2024-03-16] MEDS: ASPIRIN 81 MG PO SCH (21:00)
[2024-03-16] MEDS: QUEtiapine 100 MG TAB PO SCH (21:00)
[2024-03-17 07:53] VITALS: BP 89/56; PULSE 83; RESP 16; TEMP 97.6
--- NOTE | 2024-03-17 10:00 | P.DS ---
Providers Attending physician: Tahir Bustillos Primary care physician: [facility] Course: Patient is a 54-year-old female who follows in the office with Dr. Corrales. Patient underwent EP study yesterday with Dr. Bustillos. Patient underwent successful ablation of high right atrial tachycardia. Patient states she did well overnight and actually feels very well this morning. No chest pain or chest pressure. No difficulty breathing. GENERAL: Well-appearing, well-nourished and in no acute distress. NECK: Supple without JVD or thyromegaly. LUNGS: Breath sounds clear to auscultation bilaterally. Respiration equal and unlabored. No wheezes, rales or rhonchi. HEART: Regular rate and rhythm without murmurs, rubs or gallops. S1 and S2 heard. EXTREMITIES: Normal range of motion, no edema. No clubbing or cyanosis. Peripheral pulses intact and strong. Bilateral groin sites are clean dry and intact TELEMETRY: Sinus rhythm overnight IMPRESSION: Supraventricular tachycardia Status post ablation of high right atrial tachycardia PLAN: Continue current medication regimen No need for anticoagulation Follow-up with primary research support specialist Dr. Corrales in 1 week I am dictating on behalf of Dr Tahir Bustillos's history/physical and assessment/plan. Plan - Discharge Summary Discharge Rx Participant: No New Discharge Prescriptions: New Metoprolol Tartrate 25 mg PO BID #90 tab Discontinued Metoprolol Tartrate [Lopressor] 50 mg PO BID #60 tab No Action Thiamine [Vitamin B-1] 100 mg PO DAILY Atorvastatin [Lipitor] 40 mg PO HS HYDROcodone/APAP 10-325MG [[place] 10-325] 1 tab PO TID Cyclobenzaprine [Flexeril] 10 mg PO TID PRN PRN Reason: Pain Atogepant [Qulipta] 60 mg PO HS Aspirin 81 mg PO HS Zavegepant HCl [Zavzpret] 1 spray NASAL DAILY PRN PRN Reason: Migraine Headache Potassium Chloride ER [K-Dur 10] 10 meq PO BID Dicyclomine [Bentyl] 10 mg PO QID 7 Days #28 cap Omeprazole [PriLOSEC] 20 mg PO HS DULoxetine HCL [Cymbalta] 60 mg PO HS Cyanocobalamin (Vitamin B-12) [Vitamin B-12] 1,000 mcg PO DAILY Multivitamins, Thera [Multivitamin (formulary)] 1 tab PO HS QUEtiapine FUMARATE [SEROquel] 300 mg PO HS Discharge Medication List Omeprazole [PriLOSEC] 20 mg PO HS 12/15/20 [History] Thiamine [Vitamin B-1] 100 mg PO DAILY 01/04/21 [History] Atorvastatin [Lipitor] 40 mg PO HS 07/20/21 [History] DULoxetine HCL [Cymbalta] 60 mg PO HS 07/20/21 [History] Atogepant [Qulipta] 60 mg PO HS 06/03/22 [History] Cyclobenzaprine [Flexeril] 10 mg PO TID PRN 06/03/22 [History] HYDROcodone/APAP 10-325MG [[place] 10-325] 1 tab PO TID 06/03/22 [History] Aspirin 81 mg PO HS 08/29/22 [History] Cyanocobalamin (Vitamin B-12) [Vitamin B-12] 1,000 mcg PO DAILY 09/07/23 [History] Multivitamins, Thera [Multivitamin (formulary)] 1 tab PO HS 09/07/23 [History] Zavegepant HCl [Zavzpret] 1 spray NASAL DAILY PRN 09/07/23 [History] Potassium Chloride ER [K-Dur 10] 10 meq PO BID 12/10/23 [History] QUEtiapine FUMARATE [SEROquel] 300 mg PO HS 01/10/24 [History] Dicyclomine [Bentyl] 10 mg PO QID 7 Days #28 cap 03/12/24 [Rx] Metoprolol Tartrate 25 mg PO BID #90 tab 03/16/24 [Rx] Follow up Appointment(s)/Referral(s): Tahir Bustillos MD [STAFF PHYSICIAN] - 1 Week (Follow-up with primary research support specialist in 1 week) Activity/Diet/Wound Care/Special Instructions: Post EP study - Ablation instructions 1. Keep access sites dry for 2 days. 2. No heavy lifting or straining for 2 days. 3. Avoid bending the hips repeatedly for 2 days. 4. You may go up and down stairs slowly 5. If you have had an ablation for atrial fibrillation or atrial flutter and are on a blood thinner, do not stop the blood thinner even temporarily for 3 months post ablation Call if the following is noted 1. Bleeding, increasing swelling or pain at the access sites. 2. Increasing chest discomfort, especially upon taking a deep breath. 3. Increasing shortness of breath, at rest or with exertion. 4. Undue cough / phlegm 5. Difficulty or pain while swallowing. 6. Pain or change in color in the extremities. 7. Fever, chills, rigors. 8. Increasing headache or neurologic symptoms. 9. Dizziness, fainting, palpitations Discharge Disposition: HOME SELF-CARE
== END 2024-03-17 12:52 | disposition home or self-care (01) ==
LOC: CATHEP 08:27 → 6NMEDSUR 13:16 → CATHEP 03-17 12:52
PROVIDERS: ATTEND Internal Medicine Clinical Cardiac Electrophysiology
DX: I47.19 Other supraventricular tachycardia (principal); T46.2X5A Adverse effect of other antidysrhythmic drugs, initial encounter; I25.10 Atherosclerotic heart disease of native coronary artery without angina pectoris; Z95.5 Presence of coronary angioplasty implant and graft; I10 Essential (primary) hypertension; E78.5 Hyperlipidemia, unspecified; G40.909 Epilepsy, unspecified, not intractable, without status epilepticus; Z79.82 Long term (current) use of aspirin; Z79.899 Other long term (current) drug therapy; Z82.49 Family history of ischemic heart disease and other diseases of the circulatory system
CPT/HCPCS: 93623; 93653; 86900; 86901; 84443; 86850; J1644 ×2; J2003; J2795; J0131

== ENCOUNTER 2024-04-09 12:53 | Emergency (ER) | payer OTHER ==
--- NOTE | 2024-04-09 13:19 | ED ---
Headache HPI - General Stated Complaint: Migraine, Fever Time Seen by Provider: 04/09/24 13:17 Source: RN notes reviewed - History of Present Illness Initial Comments: 54-year-old female presenting for headache x 6 days with subjective fevers. States she has a history of migraines but this headache feels different in quality. Admits sensitivity to light and sound. She has tried Tylenol and [place] with no relief. Denies head injury. - Related Data Home Medications Medication Instructions Recorded Confirmed Omeprazole [PriLOSEC] 20 mg PO HS 12/15/20 03/16/24 Thiamine [Vitamin B-1] 100 mg PO DAILY 01/04/21 03/16/24 Atorvastatin [Lipitor] 40 mg PO HS 07/20/21 03/16/24 DULoxetine HCL [Cymbalta] 60 mg PO HS 07/20/21 03/16/24 Atogepant [Qulipta] 60 mg PO HS 06/03/22 03/16/24 Cyclobenzaprine [Flexeril] 10 mg PO TID PRN 06/03/22 03/16/24 HYDROcodone/APAP 10-325MG [[place] 1 tab PO TID 06/03/22 03/16/24 10-325] Aspirin 81 mg PO HS 08/29/22 03/16/24 Cyanocobalamin (Vitamin B-12) 1,000 mcg PO DAILY 09/07/23 03/16/24 [Vitamin B-12] Multivitamins, Thera [Multivitamin 1 tab PO HS 09/07/23 03/16/24 (formulary)] Zavegepant HCl [Zavzpret] 1 spray NASAL DAILY PRN 09/07/23 03/16/24 Potassium Chloride ER [K-Dur 10] 10 meq PO BID 12/10/23 03/16/24 QUEtiapine FUMARATE [SEROquel] 300 mg PO HS 01/10/24 03/16/24 Previous Rx's Medication Instructions Recorded Dicyclomine [Bentyl] 10 mg PO QID 7 Days #28 cap 03/12/24 Metoprolol Tartrate 25 mg PO BID #90 tab 03/16/24 Allergies Allergy/AdvReac Type Severity Reaction Status Date / Time dihydroergotamine Allergy Unknown Unknown Verified 03/15/24 11:57 [From Migranal] buprenorphine Allergy Rash/Hives Verified 03/15/24 11:57 gabapentin [From Neurontin] Allergy Itching/Swe Verified 03/15/24 11:57 lling latex Allergy Anaphylaxis Verified 03/15/24 11:57 naproxen [From Naprosyn] Allergy Anaphylaxis Verified 03/15/24 11:57 Penicillins Allergy Anaphylaxis Verified 03/15/24 11:57 quetiapine fumarate Allergy Itching, Verified 03/15/24 11:57 [From Seroquel] leg cramps rofecoxib [From Vioxx] Allergy Itching, Verified 03/15/24 11:57 leg cramps terfenadine [From Seldane] Allergy Rash/Hives Verified 03/15/24 11:57 vancomycin Allergy Rash/Hives/Swelling Verified 03/15/24 11:57 @IV site calcium carbonate [From DHEA] AdvReac Chest Pain Verified 03/15/24 11:57 calcium phosphate,dibasic AdvReac Chest Pain Verified 03/15/24 11:57 [From DHEA] clindamycin AdvReac muscle Verified 03/15/24 11:57 cramps clonidine AdvReac fast Verified 03/15/24 11:57 heartbeat, migraine dextromethorphan HBr AdvReac face/neck Verified 03/15/24 11:57 [From NyQuil] flushing diazepam [From Valium] AdvReac Nausea & Verified 03/15/24 11:57 Vomiting divalproex sodium AdvReac Nausea & Verified 03/15/24 11:57 [From Depakote] Vomiting doxylamine [From NyQuil] AdvReac face "beet Verified 03/15/24 11:57 red", elevated temp. ibuprofen [From Motrin] AdvReac abdominal Verified 03/15/24 11:57 & muscle cramps indomethacin [From Indocin] AdvReac Abdominal Verified 03/15/24 11:57 Pain,N/V ketorolac tromethamine AdvReac "built up Verified 03/15/24 11:57 [From Toradol] in system", had to be given something to reverse lorazepam [From Ativan] AdvReac Nausea & Verified 03/15/24 11:57 Vomiting memantine [From Namenda] AdvReac Itching Verified 03/15/24 11:57 metoclopramide HCl AdvReac muscle Verified 03/15/24 11:57 [From Reglan] cramps nortriptyline [From Pamelor] AdvReac Chest Pain Verified 03/15/24 11:57 prasterone (DHEA) [From DHEA] AdvReac Chest Pain Verified 03/15/24 11:57 prochlorperazine AdvReac leg Verified 03/15/24 11:57 [From Compazine] cramping propranolol AdvReac Chest Pain Verified 03/15/24 11:57 pseudoephedrine HCl AdvReac face "beet Verified 03/15/24 11:57 [From NyQuil] red", elevated temp. quetiapine [From Seroquel] AdvReac leg Verified 03/15/24 11:57 cramping sumatriptan [From Imitrex] AdvReac migrane Verified 03/15/24 11:57 sumatriptan succinate AdvReac migrane Verified 03/15/24 11:57 [From Imitrex] topiramate [From Topamax] AdvReac "built up Verified 03/15/24 11:57 in system", had to be given something to reverse tramadol AdvReac Nausea & Verified 03/15/24 11:57 Vomiting/LEG CRAMPS/HEART FLUTTERS trazodone AdvReac "built up Verified 03/15/24 11:57 in system", had to be given something to reverse zolpidem tartrate AdvReac "Became Verified 03/15/24 11:57 [From Ambien] violent with no memory" zonisamide [From Zonegran] AdvReac inability Verified 03/15/24 11:57 to eat steroids Allergy Swelling Uncoded 03/15/24 11:57 artificial sweetener AdvReac SEVERE Uncoded 03/15/24 11:57 MIGRAINE HEADACHE prosyn AdvReac Itching Uncoded 03/15/24 11:57 Review of Systems ROS Statement: Those systems with pertinent positive or pertinent negative responses have been documented in the HPI. ROS Other: All systems not noted in ROS Statement are negative. Past Medical History Past Medical History: Hyperlipidemia, Hypertension, Seizure Disorder, Supraventricular Tachycardia (SVT) Additional Past Medical History / Comment(s): Migraines, viral meningitis x3 as a child, 1995, 2000, chronic back pain, nerve blocks (neck and occipital nerve) 08/2016 and 12/2016. Last seizure 10/10/2020, "ABSENT SEIZURES. HX TACHYCARDIA, Complex PTSD. gillean barre History of Any Multi-Drug Resistant Organisms: None Reported Past Surgical History: Appendectomy, Section, Cholecystectomy, Heart Catheterization, Heart Catheterization With Stent, Hernia Repair, Hysterectomy, Orthopedic Surgery, Tonsillectomy, Tubal Ligation Additional Past Surgical History / Comment(s): Hiatal Hernia, umbilical hernia repair, left rotator cuff repair, bilateral knee scopes, pain clinic procedures- occipital nerve block. abd exploratory sx(endometreosis), 3 abd scopes 1981, 1989, 1991), lumbar puncture. EGD. nerve biopsy, salvalry gland biospy, Port (Right side 2018, left side 2020), Esophogeal dilation(2023) Past Anesthesia/Blood Transfusion Reactions: No Reported Reaction Additional Past Anesthesia/Blood Transfusion Reaction / Comment(s): Claustrophobic Date of Last Stent Placement:: 06/03/2022 Additional Psychological History / Comment(s): lives at home tracee - Past Family History Mother Family Medical History: Cancer, Dementia, Diabetes Mellitus, GERD/Reflux, H yperlipidemia, Hypertension, Thyroid Disorder, Vascular Disorder Additional Family Medical History / Comment(s): CABG x2, stents Father History Unknown: Yes Family Medical History: No Reported History General Exam - General Exam Comments Initial Comments: Visual Physical Exam General: Well-appearing, nontoxic, no acute distress. Head: Normocephalic, atraumatic Eyes: PERRLA, EOMI ENT: Airway patent Chest: Nonlabored breathing Skin: No visual rash, normal skin tone Neuro: Alert and oriented 3 Musculoskeletal: No gross abnormalities General appearance: alert, in no apparent distress Head exam: Present: atraumatic, normocephalic, normal inspection Eye exam: Present: normal appearance, PERRL, EOMI. Absent: scleral icterus, conjunctival injection, periorbital swelling ENT exam: Present: normal exam, mucous membranes moist Neck exam: Present: normal inspection. Absent: tenderness, meningismus, lymphadenopathy Respiratory exam: Present: normal lung sounds bilaterally. Absent: respiratory distress, wheezes, rales, rhonchi, stridor Cardiovascular Exam: Present: regular rate, normal rhythm, normal heart sounds. Absent: systolic murmur, diastolic murmur, rubs, gallop, clicks Neurological exam: Present: alert, oriented X3, CN II-XII intact Psychiatric exam: Present: normal affect, normal mood Skin exam: Present: warm, dry, intact, normal color. Absent: rash Course Vital Signs 04/09/24 04/09/24 13:42 14:40 Temperature 98.2 F 98.8 F Pulse Rate 106 H 99 Respiratory 18 18 Rate Blood Pressure 151/113 169/113 O2 Sat by Pulse 98 96 Oximetry Medical Decision Making - Medical Decision Making I completed the quick note portion of this chart signed Ella Quinn PA-C Was pt. sent in by a medical professional or institution (, [facility], RISK TECH, urgent care, hospital, or retirement...) When possible be specific @ -No Did you speak to anyone other than the patient for history (EMS, parent, family, police, friend...)? What history was obtained from this source @ -No Did you review nursing and triage notes (agree or disagree)? Why? @ -I reviewed and agree with nursing and triage notes Were old charts reviewed (outside hosp., previous admission, EMS record, old EKG , old radiological studies, urgent care reports/EKG's, retirement records)? Report findings @ -No old charts were reviewed Differential Diagnosis (chest pain, altered mental status, abdominal pain women, abdominal pain men, vaginal bleeding, weakness, fever, dyspnea, syncope, headache, dizziness, GI bleed, back pain, seizure, CVA, palpatations, mental health, musculoskeletal)? @ -Differential Headache: Migraine, tension, cluster, carbon monoxide, central venous thrombosis, pension karma temporal arteritis, acute closure glaucoma, intercranial hemorrhage, mastoiditis, sinusitis, head injury, this is not meant to be an all-inclusive list. EKG interpreted by me (3pts min.). @ -None X-rays interpreted by me (1pt min.). @ -None done CT interpreted by me (1pt min.). @ -CT brain reveals no acute abnormality U/S interpreted by me (1pt. min.). @ -None done What testing was considered but not performed or refused? (CT, X-rays, U/S, labs)? Why? @ -None What meds were considered but not given or refused? Why? @ -None Did you discuss the management of the patient with other professionals (pr ofessionals i.e. , PA, RISK TECH, lab, RT, psych nurse, social work specialist, shroud line tier, teacher, patrol officer, transplant case manager)? Give summary @ -No Was smoking cessation discussed for >3mins.? @ -No Was critical care preformed (if so, how long)? @ -No Were there social determinants of health that impacted care today? How? (Homelessness, low income, unemployed, alcoholism, drug addiction, transportation, low edu. Level, literacy, decrease access to med. care, assisted, rehab)? @ -No Was there de-escalation of care discussed even if they declined (Discuss DNR or withdrawal of care, Hospice)? DNR status @ -No What co-morbidities impacted this encounter? (DM, HTN, Smoking, COPD, CAD, Cancer, CVA, ARF, Chemo, Hep., AIDS, mental health diagnosis, sleep apnea, morbid obesity)? @ -None Was patient admitted / discharged? Hospital course, mention meds given and route, prescriptions, significant lab abnormalities, going to OR and other pertinent info. @ -Discharge. This is a 54-year-old female with history of migraines presenting for headache x 6 days. Patient is hypertensive at 151/113, mildly tachycardic at 106 bpm. Neuro examination unremarkable. Patient was provided with migraine cocktail. Lab work largely unremarkable. White blood cell count 9.6. Mild hypokalemia at 3.4. CT brain reveals no acute intracranial abnormality. Results discussed with patient. Upon reevaluation, patient reports significant improvement of symptoms and feel stable for discharge. Appropriate return precautions and follow-up care discussed. Case was discussed with my ED attending Dr. Hein. Undiagnosed new problem with uncertain prognosis? @ -No Drug Therapy requiring intensive monitoring for toxicity (Heparin, Nitro, Insulin, Cardizem)? @ -No Were any procedures done? @ -No Diagnosis/symptom? @ -Migraine Acute, or Chronic, or Acute on Chronic? @ -Acute Uncomplicated (without systemic symptoms) or Complicated (systemic symptoms)? @ -Uncomplicated Side effects of treatment? @ -No Exacerbation, Progression, or Severe Exacerbation? @ -No Poses a threat to life or bodily function? How? (Chest pain, [place], [place], pneumonia, PE, COPD, DKA, ARF, appy, cholecystitis, CVA, Diverticulitis, Homicidal, Suicidal, threat to staff... and all critical care pts) @ -No - Lab Data Result diagrams: 04/09/24 13:27 04/09/24 14:33 Lab Results 04/09/24 04/09/24 04/09/24 Range/Units 13:27 13:27 14:33 WBC 9.6 (3.8-10.6) k/uL RBC 4.61 (3.80-5.40) m/uL Hgb 14.9 (11.4-16.0) gm/dL Hct 45.0 (34.0-46.0) % MCV 97.7 (80.0-100.0) fL MCH 32.4 (25.0-35.0) pg MCHC 33.1 (31.0-37.0) g/dL RDW 12.0 (11.5-15.5) % Plt Count 341 (150-450) k/uL MPV 8.1 Neutrophils % 77 % Lymphocytes % 18 % Monocytes % 4 % Eosinophils % 0 % Basophils % 0 % Neutrophils # 7.3 (1.3-7.7) k/uL Lymphocytes # 1.7 (1.0-4.8) k/uL Monocytes # 0.4 (0-1.0) k/uL Eosinophils # 0.0 (0-0.7) k/uL Basophils # 0.0 (0-0.2) k/uL Sodium 137 (137-145) mmol/L Potassium 3.4 L (3.5-5.1) mmol/L Chloride 98 (98-107) mmol/L Carbon Dioxide 33 H (22-30) mmol/L Anion Gap 6 mmol/L BUN 3 L (7-17) mg/dL Creatinine 0.81 (0.52-1.04) mg/dL Est GFR (CKD-EPI)AfAm >90 (>60 ml/min/1.73 sqM) Est GFR (CKD-EPI)NonAf 84 (>60 ml/min/1.73 sqM) Glucose 126 H (74-99) mg/dL Calcium 9.6 (8.4-10.2) mg/dL Total Bilirubin 0.4 (0.2-1.3) mg/dL AST 26 (14-36) U/L ALT 15 (4-34) U/L Alkaline Phosphatase 179 H (38-126) U/L Total Protein 6.6 (6.3-8.2) g/dL Albumin 4.0 (3.5-5.0) g/dL Influenza Type A (PCR) Not Detected (Not Detectd) Influenza Type B (PCR) Not Detected (Not Detectd) RSV (PCR) Not Detected (Not Detectd) SARS-CoV-2 (PCR) Not Detected (Not Detectd) Disposition Clinical Impression: Migraine Disposition: HOME SELF-CARE Condition: Stable Instructions (If sedation given, give patient instructions): Acute Headache (ED) Additional Instructions: Please return to the Emergency Department if symptoms worsen or any other concerns. Is patient prescribed a controlled substance at d/c from ED?: No Referrals: José Reece MD [Primary Care Provider] - 1-2 days Time of Disposition: 16:08
[2024-04-09 13:45] VITALS: RESP 18
[2024-04-09] MEDS: diphenhydrAMINE 50 MG/ML 1 ML VIAL IVP STA (14:41)
[2024-04-09] MEDS: SODIUM CHLORIDE 0.9% 1,000 ML IV STA (14:41)
[2024-04-09] MEDS: HYDROmorphone 1 MG/ML 1 ML SYRINGE IVP STA ×2 (14:42→16:52)
[2024-04-09 14:43] LABS: Basophils % (A) 0 %; Eosinophils % (A) 0 %; HGB 14.9 gm/dL (11.4-16.0); Lymphocytes # (A) 1.7 k/uL (1.0-4.8); Lymphocytes % (A) 18 %; MCH 32.4 pg (25.0-35.0); MCHC 33.1 g/dL (31.0-37.0); MCV 97.7 fL (80.0-100.0); Mean Platelet Volume 8.1; Monocytes # (A) 0.4 k/uL (0-1.0); Monocytes % (A) 4 %; Neutrophils # (A) 7.3 k/uL (1.3-7.7); Neutrophils % (A) 77 %; Platelet Count 341 k/uL (150-450); RBC 4.61 m/uL (3.80-5.40); WBC 9.6 k/uL (3.8-10.6)
[2024-04-09 14:57] LABS: ALT 15 U/L (4-34); AST 26 U/L (14-36); African American GFR (CKD) >90 (>60 ml/min/1.73 sqM); Alkaline Phosphatase 179 U/L (38-126); Anion Gap 6 mmol/L; Blood Urea Nitrogen 3 mg/dL (7-17); Calcium 9.6 mg/dL (8.4-10.2); Carbon Dioxide 33 mmol/L (22-30); Chloride 98 mmol/L (98-107); Glucose 126 mg/dL (74-99); Non-African American GFR(CKD) 84 (>60 ml/min/1.73 sqM); Potassium 3.4 mmol/L (3.5-5.1); Sodium 137 mmol/L (137-145); Total Bilirubin 0.4 mg/dL (0.2-1.3); Total Protein 6.6 g/dL (6.3-8.2)
--- NOTE | 2024-04-09 15:36 | CT ---
EXAMINATION TYPE: CT brain wo con DATE OF EXAM: 04/09/2024 3:31 PM COMPARISON: 10/26/2023. CLINICAL INDICATION: Female, 54 years old with history of headache x 6 days, Headache x 6 days. TECHNIQUE: Brain: Axial CT images of the brain were obtained with coronal and sagittal reformats created and rev iewed. Contrast used: None. Oral contrast used: None. CT DLP: 1114.4 mGycm, Automated exposure control for dose reduction was used. FINDINGS: Brain: Extra-axial spaces: No abnormal extra-axial fluid collections. Ventricular system: Within normal limits Cerebral parenchyma: No acute intraparenchymal hemorrhage or mass effect. The mercer-white junction is well differentiated. Cerebellum: Unremarkable. Mass effect: No evidence of midline shift. Intracranial vasculature: unremarkable Soft tissues: Normal. Calvarium/osseous structures: No depressed skull fracture. Paranasal sinuses and mastoid air cells: Mild scattered paranasal sinus disease. Visualized orbits: Orbital contents are intact. IMPRESSION: No acute intracranial process. [facility], , 04/09/2024 3:34 PM
[2024-04-09] MEDS: ONDANSETRON 4 MG/2 ML VIAL IVP STA (16:45)
[2024-04-09 17:03] VITALS: BP 160/99; PULSE 100; TEMP 98.4
== END 2024-04-09 17:02 | disposition home or self-care (01) ==
LOC: EC 12:53
DX: G43.909 Migraine, unspecified, not intractable, without status migrainosus (principal); Z88.0 Allergy status to penicillin; Z88.1 Allergy status to other antibiotic agents; Z88.2 Allergy status to sulfonamides; Z88.5 Allergy status to narcotic agent; Z88.6 Allergy status to analgesic agent; Z91.040 Latex allergy status; Z88.8 Allergy status to other drugs, medicaments and biological substances
CPT/HCPCS: 36415; 80053; 85025; 87636; 70450; 99284; 96374; 96375; 96361; J1200; J2405; J1171; J1642

== ENCOUNTER 2024-04-20 13:37 | Emergency (ER) | payer OTHER ==
[2024-04-20 14:02] VITALS: TEMP 98.4
--- NOTE | 2024-04-20 14:10 | ED ---
General Adult HPI - General Chief complaint: Headache Stated complaint: migraine/nvd Time Seen by Provider: 04/20/24 14:03 Source: patient Mode of arrival: ambulatory Limitations: no limitations - History of Present Illness Initial comments: Dictation was produced using Grow dictation software. please excuse any grammatical, word or spelling errors. Chief Complaint: 54-year-old female with headache and URI symptoms History of Present Illness: Patient is a 55-year-old female she is well-known to the emergency department for multiple visitations for headache. 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 States that for the last week she has had a headache. States that feels like her usual headaches. Denies any numbness tingling paresthesias to the arms or legs. States that she is sensitive to light. Patient has been around her grandchildren who she reportedly states have been sick. She does have some nasal congestion. Denies any urinary symptoms The ROS documented in this emergency department record has been reviewed and confirmed by me. Those systems with pertinent positive or negative responses galan ve been documented in the HPI. All other systems are other negative and/or noncontributory. - Related Data Home Medications Medication Instructions Recorded Confirmed Omeprazole [PriLOSEC] 20 mg PO HS 12/15/20 03/16/24 Thiamine [Vitamin B-1] 100 mg PO DAILY 01/04/21 03/16/24 Atorvastatin [Lipitor] 40 mg PO HS 07/20/21 03/16/24 DULoxetine HCL [Cymbalta] 60 mg PO HS 07/20/21 03/16/24 Atogepant [Qulipta] 60 mg PO HS 06/03/22 03/16/24 Cyclobenzaprine [Flexeril] 10 mg PO TID PRN 06/03/22 03/16/24 HYDROcodone/APAP 10-325MG [[place] 1 tab PO TID 06/03/22 03/16/24 10-325] Aspirin 81 mg PO HS 08/29/22 03/16/24 Cyanocobalamin (Vitamin B-12) 1,000 mcg PO DAILY 09/07/23 03/16/24 [Vitamin B-12] Multivitamins, Thera [Multivitamin 1 tab PO HS 09/07/23 03/16/24 (formulary)] Zavegepant HCl [Zavzpret] 1 spray NASAL DAILY PRN 09/07/23 03/16/24 Potassium Chloride ER [K-Dur 10] 10 meq PO BID 12/10/23 03/16/24 QUEtiapine FUMARATE [SEROquel] 300 mg PO HS 01/10/24 03/16/24 Previous Rx's Medication Instructions Recorded Dicyclomine [Bentyl] 10 mg PO QID 7 Days #28 cap 03/12/24 Metoprolol Tartrate 25 mg PO BID #90 tab 03/16/24 Allergies Allergy/AdvReac Type Severity Reaction Status Date / Time dihydroergotamine Allergy Unknown Unknown Verified 04/20/24 14:05 [From Migranal] buprenorphine Allergy Rash/Hives Verified 04/20/24 14:05 gabapentin [From Neurontin] Allergy Itching/Swe Verified 04/20/24 14:05 lling latex Allergy Anaphylaxis Verified 04/20/24 14:05 naproxen [From Naprosyn] Allergy Anaphylaxis Verified 04/20/24 14:05 Penicillins Allergy Anaphylaxis Verified 04/20/24 14:05 quetiapine fumarate Allergy Itching, Verified 04/20/24 14:05 [From Seroquel] leg cramps rofecoxib [From Vioxx] Allergy Itching, Verified 04/20/24 14:05 leg cramps terfenadine [From Seldane] Allergy Rash/Hives Verified 04/20/24 14:05 vancomycin Allergy Rash/Hives/Swelling Verified 04/20/24 14:05 @IV site calcium carbonate [From DHEA] AdvReac Chest Pain Verified 04/20/24 14:05 calcium phosphate,dibasic AdvReac Chest Pain Verified 04/20/24 14:05 [From DHEA] clindamycin AdvReac muscle Verified 04/20/24 14:05 cramps clonidine AdvReac fast Verified 04/20/24 14:05 heartbeat, migraine dextromethorphan HBr AdvReac face/neck Verified 04/20/24 14:05 [From NyQuil] flushing diazepam [From Valium] AdvReac Nausea & Verified 04/20/24 14:05 Vomiting divalproex sodium AdvReac Nausea & Verified 04/20/24 14:05 [From Depakote] Vomiting doxylamine [From NyQuil] AdvReac face "beet Verified 04/20/24 14:05 red", elevated temp. ibuprofen [From Motrin] AdvReac abdominal Verified 04/20/24 14:05 & muscle cramps indomethacin [From Indocin] AdvReac Abdominal Verified 04/20/24 14:05 Pain,N/V ketorolac tromethamine AdvReac "built up Verified 04/20/24 14:05 [From Toradol] in system", had to be given something to reverse lorazepam [From Ativan] AdvReac Nausea & Verified 04/20/24 14:05 Vomiting memantine [From Namenda] AdvReac Itching Verified 04/20/24 14:05 metoclopramide HCl AdvReac muscle Verified 04/20/24 14:05 [From Reglan] cramps nortriptyline [From Pamelor] AdvReac Chest Pain Verified 04/20/24 14:05 prasterone (DHEA) [From DHEA] AdvReac Chest Pain Verified 04/20/24 14:05 prochlorperazine AdvReac leg Verified 04/20/24 14:05 [From Compazine] cramping propranolol AdvReac Chest Pain Verified 04/20/24 14:05 pseudoephedrine HCl AdvReac face "beet Verified 04/20/24 14:05 [From NyQuil] red", elevated temp. quetiapine [From Seroquel] AdvReac leg Verified 04/20/24 14:05 cramping sumatriptan [From Imitrex] AdvReac migrane Verified 04/20/24 14:05 sumatriptan succinate AdvReac migrane Verified 04/20/24 14:05 [From Imitrex] topiramate [From Topamax] AdvReac "built up Verified 04/20/24 14:05 in system", had to be given something to reverse tramadol AdvReac Nausea & Verified 04/20/24 14:05 Vomiting/LEG CRAMPS/HEART FLUTTERS trazodone AdvReac "built up Verified 04/20/24 14:05 in system", had to be given something to reverse zolpidem tartrate AdvReac "Became Verified 04/20/24 14:05 [From Ambien] violent with no memory" zonisamide [From Zonegran] AdvReac inability Verified 04/20/24 14:05 to eat steroids Allergy Swelling Uncoded 04/20/24 14:05 artificial sweetener AdvReac SEVERE Uncoded 04/20/24 14:05 MIGRAINE HEADACHE prosyn AdvReac Itching Uncoded 04/20/24 14:05 Review of Systems ROS Statement: Those systems with pertinent positive or pertinent negative responses have been documented in the HPI. ROS Other: All systems not noted in ROS Statement are negative. Past Medical History Past Medical History: Hyperlipidemia, Hypertension, Seizure Disorder, Supraventricular Tachycardia (SVT) Additional Past Medical History / Comment(s): Migraines, viral meningitis x3 as a child, 1995, 2000, chronic back pain, nerve blocks (neck and occipital nerve) 08/2016 and 12/2016. Last seizure 10/10/2020, "ABSENT SEIZURES. HX TACHYCARDIA, Complex PTSD. gillean barre History of Any Multi-Drug Resistant Organisms: None Reported Past Surgical History: Appendectomy, Section, Cholecystectomy, Heart Catheterization, Heart Catheterization With Stent, Hernia Repair, Hysterectomy, Orthopedic Surgery, Tonsillectomy, Tubal Ligation Additional Past Surgical History / Comment(s): Hiatal Hernia, umbilical hernia repair, left rotator cuff repair, bilateral knee scopes, pain clinic procedures- occipital nerve block. abd exploratory sx(endometreosis), 3 abd scopes 1981, 1989, 1991), lumbar puncture. EGD. nerve biopsy, salvalry gland biospy, Port (Right side 2018, left side 2020), Esophogeal dilation(2023) Past Anesthesia/Blood Transfusion Reactions: No Reported Reaction Additional Past Anesthesia/Blood Transfusion Reaction / Comment(s): Claustrophobic Date of Last Stent Placement:: 06/03/2022 Past Psychological History: Anxiety, Bipolar, Panic Disorder, PTSD Smoking Status: Former smoker Past Alcohol Use History: None Reported Past Drug Use History: None Reported - Past Family History Mother Family Medical History: Cancer, Dementia, Diabetes Mellitus, GERD/Reflux, Hyperlipidemia, Hypertension, Thyroid Disorder, Vascular Disorder Additional Family Medical History / Comment(s): CABG x2, stents Father History Unknown: Yes Family Medical History: No Reported History General Exam - General Exam Comments Initial Comments: PHYSICAL EXAM: General Impression: Alert and oriented x3, not in acute distress HEENT: Normocephalic atraumatic, extra-ocular movements intact, pupils equal and reactive to light bilaterally, mucous membranes moist. Cardiovascular: Heart regular rate and rhythm Chest: Able to complete full sentences, no retractions, no tachypnea Abdomen: abdomen soft, non-tender, non-distended, no organomegaly Musculoskeletal: Pulses present and equal in all extremities, no peripheral edema, right-sided CVA pain Motor: no focal deficits noted Neurological: CN II-XII grossly intact, no focal motor or sensory deficits noted Skin: Intact with no visualized rashes Psych: Normal affect and mood Limitations: no limitations Course Vital Signs 04/20/24 04/20/24 13:59 14:02 Temperature 98.4 F Pulse Rate 86 68 Respiratory 17 20 Rate Blood Pressure 122/87 170/86 O2 Sat by Pulse 98 98 Oximetry Medical Decision Making - Medical Decision Making Was pt. sent in by a medical professional or institution (, PA, NEWSPAPER INSERTER, urgent care, hospital, or [facility]...) When possible be specific @ -No Did you speak to anyone other than the patient for history (EMS, parent, family, police, friend...)? What history was obtained from this source @ -No Did you review nursing and triage notes (agree or disagree)? Why? @ -I reviewed and agree with nursing and triage notes Were old charts reviewed (outside hosp., previous admission, EMS record, old EKG, old radiological studies, urgent care reports/EKG's, [facility] records)? Report findings @ -No old charts were reviewed Differential Diagnosis (chest pain, altered mental status, abdominal pain women, abdominal pain men, vaginal bleeding, musculoskeletal, weakness, fever, dyspnea, syncope, headache, dizziness, GI bleed, back pain, seizure, CVA, palpatations, mental health)? @ -Differential Headache: Migraine, tension, cluster, carbon monoxide, central venous thrombosis, pension karma temporal arteritis, acute closure glaucoma, intercranial hemorrhage, mastoiditis, sinusitis, head injury, this is not meant to be an all-inclusive list. EKG interpreted by me (3pts min.). @ -None done X-rays interpreted by me (1pt min.). @ -None done CT interpreted by me (1pt min.). @ -None done U/S interpreted by me (1pt. min.). @ -None done What testing was considered but not performed or refused? (CT, X-rays, U/S, labs)? Why? @ -None What meds were considered but not given or refused? Why? @ -None Was smoking cessation discussed for >3mins.? @ -No Were there social determinants of health that impacted care today? How? (Homelessness, low income, unemployed, alcoholism, drug addiction, transportation, low edu. Level, literacy, decrease access to med. care, half-way, rehab)? @ -No Was there de-escalation of care discussed even if they declined (Discuss DNR or withdrawal of care, Hospice)? DNR status @ -No What co-morbidities impacted this encounter? (DM, HTN, Smoking, COPD, CAD, Cancer, CVA, ARF, Chemo, Hep., AIDS, mental health diagnosis, sleep apnea, morbid obesity)? @ -Chronic migraines Was patient admitted / discharged? Hospital course, mention meds given and route, prescriptions, significant lab abnormalities, going to OR and other pertinent info. @ -54-year-old female with history of chronic migraines presents to the emergency department for recurrent migraine. Vital signs upon arrival are within acceptable limits. Patient given headache cocktail. She does report being exposed to grandchildren that have had URI type symptoms. She also has right-sided CVA pain without any urinary symptoms. Urinalysis ordered. Viral testing ordered. Urinalysis negative. Did you discuss the management of the patient with other professionals (professionals i.e. , PA, NEWSPAPER INSERTER, lab, RT, psych nurse, community mental health social worker, fingerprint expert, teacher, truant officer, caseworker intake)? Give summary @ -No Was critical care preformed (if so, how long)? @ -No Undiagnosed new problem with uncertain prognosis? @ -No Drug Therapy requiring intensive monitoring for toxicity (Heparin, Nitro, Insulin, Cardizem)? @ -No Were any procedures done? @ -No Diagnosis/symptom? Acute, or Chronic, or Acute on Chronic? Uncomplicated (without systemic symptoms) or Complicated (systemic symptoms)? @ -Acute on chronic migraine Side effects of treatment? @ -No Exacerbation, Progression, or Severe Exacerbation? @ -No Poses a threat to life or bodily function? How? (Chest pain, [place], [place], pneumonia, PE, COPD, DKA, ARF, appy, cholecystitis, CVA, Diverticulitis, Homicidal, Suicidal, threat to staff... and all critical care pts) @ -yes - Lab Data Lab Results 04/20/24 04/20/24 Range/Units 14:08 14:08 Urine Color Colorless Urine Appearance Clear (Clear) Urine pH 5.5 (5.0-8.0) Ur Specific [place] 1.014 (1.001-1.035) Urine Protein Negative (Negative) Urine Glucose (UA) Negative (Negative) Urine Ketones Negative (Negative) Urine Blood Negative (Negative) Urine Nitrite Negative (Negative) Urine Bilirubin Negative (Negative) Urine Urobilinogen <2.0 (<2.0) mg/dL Ur Leukocyte Esterase Negative (Negative) Influenza Type A (PCR) Not Detected (Not Detectd) Influenza Type B (PCR) Not Detected (Not Detectd) RSV (PCR) Not Detected (Not Detectd) SARS-CoV-2 (PCR) Not Detected (Not Detectd) Disposition Clinical Impression: Headache Disposition: HOME SELF-CARE Condition: Good Instructions (If sedation given, give patient instructions): Acute Headache (ED) Is patient prescribed a controlled substance at d/c from ED?: No Referrals: José Reece MD [Primary Care Provider] - 1-2 days Time of Disposition: 14:10
[2024-04-20] MEDS: SODIUM CHLORIDE 0.9% 1,000 ML IV STA (14:17)
[2024-04-20] MEDS: diphenhydrAMINE 50 MG/ML 1 ML VIAL IVP STA (14:18)
[2024-04-20 14:23] LABS: Appearance,Urine Clear (Clear); Bilirubin,Urine Negative (Negative); Blood,Urine Negative (Negative); Color,Urine Colorless; Glucose,Urine (UA) Negative (Negative); Ketones,Urine Negative (Negative); Leukocyte Esterase,Urine Negative (Negative); Nitrite,Urine Negative (Negative); PH, Urine 5.5 (5.0-8.0); Protein,Urine Negative (Negative); Specific Gravity,Urine 1.014 (1.001-1.035); Urobilinogen,Urine <2.0 mg/dL (<2.0)
[2024-04-20] MEDS: HYDROmorphone 1 MG/ML 1 ML SYRINGE IVP STA (14:26)
[2024-04-20] MEDS: HYDROmorphone 0.5 MG/0.5 ML SYRINGE IVP STA (15:04)
[2024-04-20] MEDS: ORPHENADRINE 30 MG/ML 2 ML VIAL IVP STA (15:05)
[2024-04-20 15:34] VITALS: BP 130/87; PULSE 72; RESP 20
== END 2024-04-20 15:34 | disposition home or self-care (01) ==
LOC: EC 13:37
DX: G43.909 Migraine, unspecified, not intractable, without status migrainosus (principal); Z88.0 Allergy status to penicillin; Z88.1 Allergy status to other antibiotic agents; Z88.2 Allergy status to sulfonamides; Z88.5 Allergy status to narcotic agent; Z88.6 Allergy status to analgesic agent; Z88.8 Allergy status to other drugs, medicaments and biological substances; Z91.040 Latex allergy status; Z87.891 Personal history of nicotine dependence; Z11.52 Encounter for screening for COVID-19
CPT/HCPCS: 81003; 87636; 99283; 96374; 96375; 96376; 96361; J1200; J2360; J1171 ×2

== ENCOUNTER 2024-05-09 10:14 | Inpatient (IN) | payer OTHER ==
[2024-05-09] MEDS: ONDANSETRON 4 MG/2 ML VIAL IVP STA (10:57)
--- NOTE | 2024-05-09 10:59 | ED ---
Abdominal Pain HPI - General Chief Complaint: Abdominal Pain Stated Complaint: Abd pain Time Seen by Provider: 05/09/24 10:28 Source: patient, RN notes reviewed Mode of arrival: ambulatory Limitations: no limitations - History of Present Illness Initial Comments: This is a 54-year-old female who presents to the emergency department for abdominal pain. Patient states that earlier today she sneezed and then noticed a large bulge in her right lower quadrant. She has had severe pain with nausea and vomiting since. Denies any history of similar problems in the past. Denies any histories of hernias or prior bulges in this area. MD Complaint: abdominal pain - Related Data Home Medications Medication Instructions Recorded Confirmed Omeprazole [PriLOSEC] 20 mg PO HS 12/15/20 05/09/24 Thiamine [Vitamin B-1] 100 mg PO DAILY 01/04/21 05/09/24 Atorvastatin [Lipitor] 40 mg PO HS 07/20/21 05/09/24 DULoxetine HCL [Cymbalta] 60 mg PO HS 07/20/21 05/09/24 Atogepant [Qulipta] 60 mg PO HS 06/03/22 05/09/24 Cyclobenzaprine [Flexeril] 10 mg PO TID PRN 06/03/22 05/09/24 HYDROcodone/APAP 10-325MG [Bronson 1 tab PO TID 06/03/22 05/09/24 10-325] Aspirin 81 mg PO HS 08/29/22 05/09/24 Cyanocobalamin (Vitamin B-12) 1,000 mcg PO DAILY 09/07/23 05/09/24 [Vitamin B-12] Multivitamins, Thera [Multivitamin 1 tab PO HS 09/07/23 05/09/24 (formulary)] Zavegepant HCl [Zavzpret] 1 spray NASAL DAILY PRN 09/07/23 05/09/24 Potassium Chloride ER [K-Dur 10] 10 meq PO BID 12/10/23 05/09/24 QUEtiapine FUMARATE [SEROquel] 300 mg PO HS 01/10/24 05/09/24 Previous Rx's Medication Instructions Recorded Dicyclomine [Bentyl] 10 mg PO QID 7 Days #28 cap 03/12/24 Metoprolol Tartrate 25 mg PO BID #90 tab 03/16/24 Allergies Allergy/AdvReac Type Severity Reaction Status Date / Time dihydroergotamine Allergy Unknown Unknown Verified 05/09/24 14:27 [From Migranal] buprenorphine Allergy Rash/Hives Verified 05/09/24 14:27 gabapentin [From Neurontin] Allergy Itching/Swe Verified 05/09/24 14:27 lling latex Allergy Anaphylaxis Verified 05/09/24 14:27 naproxen [From Naprosyn] Allergy Anaphylaxis Verified 05/09/24 14:27 Penicillins Allergy Anaphylaxis Verified 05/09/24 14:27 quetiapine fumarate Allergy Itching, Verified 05/09/24 14:27 [From Seroquel] leg cramps rofecoxib [From Vioxx] Allergy Itching, Verified 05/09/24 14:27 leg cramps terfenadine [From Seldane] Allergy Rash/Hives Verified 05/09/24 14:27 vancomycin Allergy Rash/Hives/Swelling Verified 05/09/24 14:27 @IV site calcium carbonate [From DHEA] AdvReac Chest Pain Verified 05/09/24 14:27 calcium phosphate,dibasic AdvReac Chest Pain Verified 05/09/24 14:27 [From DHEA] clindamycin AdvReac muscle Verified 05/09/24 14:27 cramps clonidine AdvReac fast Verified 05/09/24 14:27 heartbeat, migraine dextromethorphan HBr AdvReac face/neck Verified 05/09/24 14:27 [From NyQuil] flushing diazepam [From Valium] AdvReac Nausea & Verified 05/09/24 14:27 Vomiting divalproex sodium AdvReac Nausea & Verified 05/09/24 14:27 [From Depakote] Vomiting doxylamine [From NyQuil] AdvReac face "beet Verified 05/09/24 14:27 red", elevated temp. ibuprofen [From Motrin] AdvReac abdominal Verified 05/09/24 14:27 & muscle cramps indomethacin [From Indocin] AdvReac Abdominal Verified 05/09/24 14:27 Pain,N/V ketorolac tromethamine AdvReac "built up Verified 05/09/24 14:27 [From Toradol] in system", had to be given something to reverse lorazepam [From Ativan] AdvReac Nausea & Verified 05/09/24 14:27 Vomiting memantine [From Namenda] AdvReac Itching Verified 05/09/24 14:27 metoclopramide HCl AdvReac muscle Verified 05/09/24 14:27 [From Reglan] cramps nortriptyline [From Pamelor] AdvReac Chest Pain Verified 05/09/24 14:27 prasterone (DHEA) [From DHEA] AdvReac Chest Pain Verified 05/09/24 14:27 prochlorperazine AdvReac leg Verified 05/09/24 14:27 [From Compazine] cramping propranolol AdvReac Chest Pain Verified 05/09/24 14:27 pseudoephedrine HCl AdvReac face "beet Verified 05/09/24 14:27 [From NyQuil] red", elevated temp. quetiapine [From Seroquel] AdvReac leg Verified 05/09/24 14:27 cramping sumatriptan [From Imitrex] AdvReac migrane Verified 05/09/24 14:27 sumatriptan succinate AdvReac migrane Verified 05/09/24 14:27 [From Imitrex] topiramate [From Topamax] AdvReac "built up Verified 05/09/24 14:27 in system", had to be given something to reverse tramadol AdvReac Nausea & Verified 05/09/24 14:27 Vomiting/LEG CRAMPS/HEART FLUTTERS trazodone AdvReac "built up Verified 05/09/24 14:27 in system", had to be given something to reverse zolpidem tartrate AdvReac "Became Verified 05/09/24 14:27 [From Ambien] violent with no memory" zonisamide [From Zonegran] AdvReac inability Verified 05/09/24 14:27 to eat steroids Allergy Swelling Uncoded 05/09/24 10:18 artificial sweetener AdvReac SEVERE Uncoded 05/09/24 10:18 MIGRAINE HEADACHE prosyn AdvReac Itching Uncoded 05/09/24 10:18 Review of Systems ROS Statement: Those systems with pertinent positive or pertinent negative responses have been documented in the HPI. ROS Other: All systems not noted in ROS Statement are negative. Past Medical History Past Medical History: Hyperlipidemia, Hypertension, Seizure Disorder, Supraventricular Tachycardia (SVT) Additional Past Medical History / Comment(s): Migraines, viral meningitis x3 as a child, 1995, 2000, chronic back pain, nerve blocks (neck and occipital nerve) 08/2016 and 12/2016. Last seizure 10/10/2020, "ABSENT SEIZURES. HX TACHYCARDIA, Complex PTSD. gillean barre History of Any Multi-Drug Resistant Organisms: None Reported Past Surgical History: Appendectomy, Section, Cholecystectomy, Heart Catheterization, Heart Catheterization With Stent, Hernia Repair, Hysterectomy, Orthopedic Surgery, Tonsillectomy, Tubal Ligation Additional Past Surgical History / Comment(s): Hiatal Hernia, umbilical hernia repair, left rotator cuff repair, bilateral knee scopes, pain clinic procedures- occipital nerve block. abd exploratory sx(endometreosis), 3 abd scopes 1981, 1989, 1991), lumbar puncture. EGD. nerve biopsy, salvalry gland biospy, Port (Right side 2018, left side 2020), Esophogeal dilation(2023) Past Anesthesia/Blood Transfusion Reactions: No Reported Reaction Additional Past Anesthesia/Blood Transfusion Reaction / Comment(s): Claustrophobic Date of Last Stent Placement:: 06/03/2022 Past Psychological History: Anxiety, Bipolar, Panic Disorder, PTSD Smoking Status: Former smoker Past Alcohol Use History: None Reported Past Drug Use History: None Reported - Past Family History Mother Family Medical History: Cancer, Dementia, Diabetes Mellitus, GERD/Reflux, Hyp erlipidemia, Hypertension, Thyroid Disorder, Vascular Disorder Additional Family Medical History / Comment(s): CABG x2, stents Father History Unknown: Yes Family Medical History: No Reported History General Exam Limitations: no limitations General appearance: alert, in no apparent distress Head exam: Present: atraumatic, normocephalic, normal inspection Respiratory exam: Present: normal lung sounds bilaterally. Absent: respiratory distress, wheezes, rales, rhonchi, stridor Cardiovascular Exam: Present: regular rate, normal rhythm, normal heart sounds. Absent: systolic murmur, diastolic murmur, rubs, gallop, clicks GI/Abdominal exam: Present: soft, other (Tender bulge in the right lower quadrant with mild overlying erythema). Absent: distended Neurological exam: Present: alert, oriented X3, CN II-XII intact Psychiatric exam: Present: normal affect, normal mood Skin exam: Present: warm, dry, intact, normal color. Absent: rash Course Vital Signs 05/09/24 05/09/24 05/09/24 10:15 13:22 14:07 Temperature 98.7 F Pulse Rate 139 H 108 H 116 H Respiratory 16 16 18 Rate Blood Pressure 139/87 132/100 O2 Sat by Pulse 100 99 Oximetry 05/09/24 05/09/24 15:16 16:48 Temperature 97.9 F Pulse Rate 105 H 110 H Respiratory 18 18 Rate Blood Pressure 125/92 139/87 O2 Sat by Pulse 98 94 L Oximetry Medical Decision Making - Medical Decision Making This is a 54 year old female who presents to the emergency department for abd ominal pain. Was pt. sent in by a medical professional or institution? @ -No Did you speak to anyone other than the patient for history? @ -No Did you review nursing and triage notes? @ -Yes, and I agree, it is accurate with regards to the patient's symptoms. Were old charts reviewed? @ -No Differential Diagnosis? @ -Differential Abdominal Pain Women: Appendicitis, Cholecystitis, diverticulosis, ischemic bowel, pancreatitis, hepatitis, UTI, gastroenteritis, AAA, incarcerated hernia, bowel obstruction, constipation, inflammatory bowel, hepatitis, peptic ulcer disease, splenic infarction, perforated viscus, vulvitis, ovarian torsion, PID, kidney stone, didier centa abruption, this is not meant to be an all-inclusive list EKG interpreted by me (3pts min.)? @ -Not obtained X-rays interpreted by me (1pt min.)? @ -Not obtained CT interpreted by me (1pt min.)? @ -CT scan of the abdomen and pelvis obtained. My interpretation identifies a fluid collection in the subcutaneous tissue of the right lower abdomen. U/S interpreted by me (1pt. min.)? @ -Not obtained What testing was considered but not performed? (CT, X-rays, U/S, labs)? Why? @ -None What meds were considered but not given? Why? @ -None Did you discuss the management of the patient with other professionals? @ -Yes, Dr. Zapata, who accepts the patient for admission Did you reconcile home meds? @ -No Was smoking cessation discussed for >3mins.? @ -No Was critical care preformed (if so, how long)? @ -No Were there social determinants of health that impacted care today? How? (Homelessness, low income, unemployed, alcoholism, drug addiction, transportation, low edu. Level, literacy, decrease access to med. care, correction, rehab)? @ -No Was there de-escalation of care discussed even if they declined? (Discuss DNR or withdrawal of care, Hospice)? @ -No What co-morbidities impacted this encounter? (DM, HTN, Smoking, COPD, CAD, Cancer, CVA, Hep., AIDS, mental health diagnosis, sleep apnea, morbid obesity)? @ -None Was patient admitted / discharged? @ -Admitted. Lab work demonstrates hypokalemia with a potassium of 3.0. The minor elevation in LFTs is similar when compared with prior. 40 mEq of K-Dur and 20 mEq of potassium chloride administered. CT scan of the abdomen and pelvis reveals a right anterior lateral subcutaneous organized fluid collection consistent with an abscess measuring up to 3.4 cm. Patient's history of events does not necessarily correlate with an abscess. In discussion with ED attending, needle aspiration was performed, however only mild blood was expressed. Given the location of this, we did not feel it would be able to resolve with oral antibiotics and drainage would likely be needed. Patient admitted to medicine for the abdominal wall abscess. Patient has multiple antibiotic allergies that make it difficult to treat this. She was started on cefepime, will defer additional antibiotic decisions to ID. Consult placed for general surgery and infectious disease. Order placed for IR as well to see if they can potentially drain this. Case discussed with ED attending Dr. Duffy. Undiagnosed new problem with uncertain prognosis? @ -None Drug Therapy requiring intensive monitoring for toxicity (Heparin, Nitro, Insulin, Cardizem)? @ -None Were any procedures done? @ -None Diagnosis/symptom? @ -Abdominal wall abscess Acute, or Chronic, or Acute on Chronic? @ -Acute Uncomplicated (without systemic symptoms) or Complicated (systemic symptoms)? @ -Uncomplicated Side effects of treatment? @ -None Exacerbation, Progression, or Severe Exacerbation] @ -Not applicable Poses a threat to life or bodily function? @ -Yes, can lead to worsening infection - Lab Data Result diagrams: 05/09/24 10:53 05/09/24 10:53 Lab Results 05/09/24 05/09/24 05/09/24 Range/Units 10:53 10:53 10:53 WBC 10.3 (3.8-10.6) k/uL RBC 4.08 (3.80-5.40) m/uL Hgb 12.9 (11.4-16.0) gm/dL Hct 39.5 (34.0-46.0) % MCV 96.9 (80.0-100.0) fL MCH 31.7 (25.0-35.0) pg MCHC 32.7 (31.0-37.0) g/dL RDW 12.2 (11.5-15.5) % Plt Count 442 (150-450) k/uL MPV 8.2 Neutrophils % 79 % Lymphocytes % 14 % Monocytes % 5 % Eosinophils % 1 % Basophils % 0 % Neutrophils # 8.1 H (1.3-7.7) k/uL Lymphocytes # 1.4 (1.0-4.8) k/uL Monocytes # 0.5 (0-1.0) k/uL Eosinophils # 0.1 (0-0.7) k/uL Basophils # 0.0 (0-0.2) k/uL Sodium 135 L (137-145) mmol/L Potassium 3.0 L (3.5-5.1) mmol/L Chloride 95 L (98-107) mmol/L Carbon Dioxide 28 (22-30) mmol/L Anion Gap 12 mmol/L BUN 3 L (7-17) mg/dL Creatinine 0.79 (0.52-1.04) mg/dL Est GFR (CKD-EPI)AfAm >90 (>60 ml/min/1.73 sqM) Est GFR (CKD-EPI)NonAf 87 (>60 ml/min/1.73 sqM) Glucose 117 H (74-99) mg/dL Plasma Lactic Acid Ed 1.9 (0.7-2.0) mmol/L Calcium 9.0 (8.4-10.2) mg/dL Total Bilirubin 0.5 (0.2-1.3) mg/dL AST 18 (14-36) U/L ALT 35 H (4-34) U/L Alkaline Phosphatase 224 H (38-126) U/L Total Protein 6.6 (6.3-8.2) g/dL Albumin 3.8 (3.5-5.0) g/dL - Radiology Data Radiology results: report reviewed, image reviewed Disposition Clinical Impression: Abdominal wall abscess, Hypokalemia Disposition: ADMITTED IP TO THIS HOSP
[2024-05-09] MEDS: HYDROmorphone 1 MG/ML 1 ML SYRINGE IVP STA ×2 (11:01→13:05)
[2024-05-09] MEDS: diphenhydrAMINE 50 MG/ML 1 ML VIAL IVP STA (11:02)
[2024-05-09 11:04] LABS: Basophils % (A) 0 %; Eosinophils # (A) 0.1 k/uL (0-0.7); Eosinophils % (A) 1 %; HCT 39.5 % (34.0-46.0); HGB 12.9 gm/dL (11.4-16.0); Lymphocytes # (A) 1.4 k/uL (1.0-4.8); Lymphocytes % (A) 14 %; MCH 31.7 pg (25.0-35.0); MCHC 32.7 g/dL (31.0-37.0); MCV 96.9 fL (80.0-100.0); Mean Platelet Volume 8.2; Monocytes # (A) 0.5 k/uL (0-1.0); Monocytes % (A) 5 %; Neutrophils # (A) 8.1 k/uL (1.3-7.7); Neutrophils % (A) 79 %; Platelet Count 442 k/uL (150-450); RBC 4.08 m/uL (3.80-5.40); RDW 12.2 % (11.5-15.5); WBC 10.3 k/uL (3.8-10.6)
[2024-05-09 11:17] LABS: ALT 35 U/L (4-34); AST 18 U/L (14-36); African American GFR (CKD) >90 (>60 ml/min/1.73 sqM); Albumin 3.8 g/dL (3.5-5.0); Alkaline Phosphatase 224 U/L (38-126); Anion Gap 12 mmol/L; Blood Urea Nitrogen 3 mg/dL (7-17); Carbon Dioxide 28 mmol/L (22-30); Chloride 95 mmol/L (98-107); Glucose 117 mg/dL (74-99); Non-African American GFR(CKD) 87 (>60 ml/min/1.73 sqM); Sodium 135 mmol/L (137-145); Total Bilirubin 0.5 mg/dL (0.2-1.3); Total Protein 6.6 g/dL (6.3-8.2)
[2024-05-09] MEDS: POTASSIUM CHLORIDE 20 MEQ in WATER FOR INJECTION 1 100ML.BAG IVPB STA (11:47)
[2024-05-09] MEDS: POTASSIUM CHLORIDE ER 20 MEQ TAB.ER PO STA (11:48)
--- NOTE | 2024-05-09 12:19 | CT ---
EXAMINATION TYPE: CT abdomen pelvis w con CT DLP: 736 mGycm, Automated exposure control for dose reduction was used. DATE OF EXAM: 05/09/2024 11:38 AM COMPARISON: Upper GI with esophagram 03/11/2024, renal ultrasound 02/18/2024, CT abdomen and pelvis 12/15/2023, 09/19/2023 CLINICAL INDICATION:Female, 54 years old with history of Bulge in right lower quadrant; Bulge in righ t lower quadrant. pt felt "pop" this AM. TECHNIQUE: Standard CT of the abdomen and pelvis following the administration of 100 cc of Isovue 3 00 IV contrast material. Coronal and sagittal reformats were performed. FINDINGS: LOWER CHEST: Unremarkable ABDOMEN LIVER: Unremarkable GALLBLADDER AND BILE DUCTS: Gallbladder is surgically absent with mild intrahepatic and extra hepatic biliary dilatation likely physiologic and a postcholecystectomy change. No evidence of choledocholit hiasis. PANCREAS: Unremarkable. SPLEEN: Unremarkable. ADRENAL GLANDS: Unremarkable. KIDNEYS AND URETERS: No evidence of hydronephrosis or renal calculus. The kidneys enhance symmetrical ly. Contrast is demonstrated within both collecting systems on the delayed phase. PELVIS BLADDER: Unremarkable REPRODUCTIVE: The uterus is surgically absent. ABDOMEN & PELVIS STOMACH AND BOWEL: Postsurgical changes of the GE junction from hernia repair. A few scattered coloni c diverticula without evidence for acute diverticulitis. The appendix is not identified however there is no significant intraperitoneal inflammatory changes within the right lower quadrant. No evidence of bowel obstruction. PERITONEUM: No evidence of pneumoperitoneum or free fluid. VASCULATURE: Mild atherosclerotic calcifications are present throughout the abdominal aorta and its b ranches. No evidence of aortic aneurysm. MUSCULOSKELETAL: No acute osseous abnormalities LYMPH NODES: No gross evidence for lymphadenopathy. SOFT TISSUE/ABDOMINAL WALL: Right anterior lateral ring-enhancing fluid collection without internal g as. There is surrounding fat stranding and measures 2.6 x 3.0 x 3.4 cm (series 201, image 51). This i s within the subcutaneous tissues with close proximity to the abdominal wall musculature. No distinct tract is identified. There is some associated skin thickening. IMPRESSION: Right anterior lateral subcutaneous organized fluid collection consistent with an abscess measuring u p to 3.4 cm. [facility], , 05/09/2024 12:17 PM
[2024-05-09] MEDS: LIDOCAINE 4% CREAM 5 GM TUBE TOPICAL ONE (13:08)
[2024-05-09] MEDS ORDERED: ACETAMINOPHEN TAB 325 MG TAB PO PRN (13:49)
[2024-05-09] MEDS ORDERED: NALOXONE 0.4 MG/ML 1 ML VIAL IV PRN (13:49)
[2024-05-09] MEDS: CEFEPIME 1 GM in SODIUM CHLORIDE 0.9% 50 ML IVPB ONE (15:15)
--- NOTE | 2024-05-09 16:06 | P.GSCN ---
History of Present Illness Consult date: 05/09/24 History of present illness: CHIEF COMPLAINT: Abdominal wall swelling HISTORY OF PRESENT ILLNESS: The patient is a 54-year-old female who is on aspirin and has personal history of multiple abdominal wall hernias report high- pressure cough followed by pop earlier this morning. Patient had developed acute swelling of the right lower quadrant. No bruising. No recent falls. General surgery is consulted for abdominal abscess. PAST MEDICAL HISTORY: See list and reviewed PAST SURGICAL HISTORY: See list and reviewed MEDICATIONS: See list and reviewed ALLERGIES: See list and reviewed SOCIAL HISTORY: See list and reviewed FAMILY HISTORY: See list and reviewed REVIEW OF ORGAN SYSTEMS: CONSTITUTIONAL: No fevers or chills. No recent weight loss. EYES: Denies any trouble with vision. No glasses. HEENT: No difficulties with hearing. No nosebleeds. No difficulty swallowing. RESPIRATORY: Denies pneumonia. Denies any troubles with breathing or dyspnea on exertion. CARDIOVASCULAR: Has hyperlipidemia including hypertensive heart disease. History of supraventricular tachycardia. History of heart catheterization with stent placement. GASTROINTESTINAL: Denies fatty food intolerance. Denies change in bowel habits and gas bloat. GENITOURINARY: Denies any blood in urine or increased urinary frequency. NEUROLOGICAL: Has seizure disorder. Has migraines a history of viral meningitis. Had Guillain-Cárdenas syndrome. MUSCULOSKELETAL: Has back pain, stiffness or joint arthritis. SKIN: No current skin cancer. No rash. PSYCHIATRIC: Has posttraumatic stress disorder. Has general anxiety disorder, depressive disorder, including bipolar disorder. ENDOCRINE: Denies current thyroid disorders. Denies any blood sugar glucose intolerance. HEME/LYMPHATIC: Denies any lumps and bumps around the neck. No recent deep venous thrombosis. ALLERGY/IMMUNOLOGY: Multiple drug allergies over 20 BREAST: Denies current breast lumps, pain or nipple discharge. PHYSICAL EXAM: VITALS: Reviewed CONSTITUTIONAL: Well developed and in no acute distress. EYES: Conjuctivae without sclera icterus. Extraocular movements grossly intact. HEAD, EARS, NOSE, THROAT: Moist buccal mucosa. Head is atraumatic, normocephalic. Hears conversational speech. No nasal drainage. NECK: Supple. No JV distention. No thyroidomegaly. RESPIRATORY: Non-labored respirations and equal bilateral excursions. No gross wheezes. CARDIOVASCULAR: Palpable 2+ radial pulses. ABDOMEN: No ecchymosis along the abdomen. Swelling of the right lower quadrant over 5 cm. No erythema or cellulitis. LYMPH: No neck lymphadenopathy. MUSCULOSKELETAL: No clubbing cyanosis or edema SKIN: Warm and well perfused with good skin turgor. NEUROLOGIC: Cranial nerves II through XII grossly intact. No focal or lateralizing signs. PSYCH: Appropriate affect. Alert and oriented to person, place and time. Displays appropriate insight. CLINCAL LABS: Reviewed. WBC normal. Hemoglobin normal. Potassium low 3.0, hypokalemia. ALT and AST elevated. IMAGING: Independently reviewed. CT of the abdomen pelvis independent review demonstrates 3-1/2 cm circular swelling of the right lower quadrant subcutaneous tissue. No inflammatory changes suggestive of abscess. No air-fluid pocket suggestive of abscess. RADIOLOGY: Report reviewed. CT abdomen pelvis report demonstrates over 3 cm fluid collection for abscess. RECORDS: previous old records reviewed EGD March [address]Bhe jeffrey ASSESSMENT: 1. Abdominal pain with swelling right lower quadrant 2. Traumatic hematoma versus abscess of the abdominal wall PLAN: 1. Will order abdominal binder as she reports a traumatic tear or rupture with may present as a hematoma as well. 2. Options for surgical drainage were reviewed however patient reports needle decompression was unsuccessful. ADVANCE DIRECTIVE: CODE STATUS in chart. Thank you for this kind consultation. Past Medical History Past Medical History: Hyperlipidemia, Hypertension, Seizure Disorder, Supraventricular Tachycardia (SVT) Additional Past Medical History / Comment(s): Migraines, viral meningitis x3 as a child, 1995, 2000, chronic back pain, nerve blocks (neck and occipital nerve) 08/2016 and 12/2016. Last seizure 10/10/2020, "ABSENT SEIZURES. HX TACHYCARDIA, Complex PTSD. gillean barre History of Any Multi-Drug Resistant Organisms: None Reported Past Surgical History: Appendectomy, Section, Cholecystectomy, Heart Catheterization, Heart Catheterization With Stent, Hernia Repair, Hysterectomy, Orthopedic Surgery, Tonsillectomy, Tubal Ligation Additional Past Surgical History / Comment(s): Hiatal Hernia, umbilical hernia repair, left rotator cuff repair, bilateral knee scopes, pain clinic procedures- occipital nerve block. abd exploratory sx(endometreosis), 3 abd scopes 1981, 1989, 1991), lumbar puncture. EGD. nerve biopsy, salvalry gland biospy, Port (Right side 2018, left side 2020), Esophogeal dilation(2023) Past Anesthesia/Blood Transfusion Reactions: No Reported Reaction Additional Past Anesthesia/Blood Transfusion Reaction / Comm: Claustrophobic Date of Last Stent Placement:: 06/03/2022 Past Psychological History: Anxiety, Bipolar, Panic Disorder, PTSD Smoking Status: Former smoker Past Alcohol Use History: None Reported Past Drug Use History: None Reported - Past Family History Mother Family Medical History: Cancer, Dementia, Diabetes Mellitus, GERD/Reflux, Hyperlipidemia, Hypertension, Thyroid Disorder, Vascular Disorder Additional Family Medical History / Comment(s): CABG x2, stents Father History Unknown: Yes Family Medical History: No Reported History Medications and Allergies Home Medications Medication Instructions Recorded Confirmed Type Omeprazole [PriLOSEC] 20 mg PO HS 12/15/20 05/09/24 History Thiamine [Vitamin B-1] 100 mg PO DAILY 01/04/21 05/09/24 History Atorvastatin [Lipitor] 40 mg PO HS 07/20/21 05/09/24 History DULoxetine HCL [Cymbalta] 60 mg PO HS 07/20/21 05/09/24 History Atogepant [Qulipta] 60 mg PO HS 06/03/22 05/09/24 History Cyclobenzaprine [Flexeril] 10 mg PO TID PRN 06/03/22 05/09/24 History HYDROcodone/APAP 10-325MG [[place] 1 tab PO TID 06/03/22 05/09/24 History 10-325] Aspirin 81 mg PO HS 08/29/22 05/09/24 History Cyanocobalamin (Vitamin B-12) 1,000 mcg PO DAILY 09/07/23 05/09/24 History [Vitamin B-12] Multivitamins, Thera [Multivitamin 1 tab PO HS 09/07/23 05/09/24 History (formulary)] Zavegepant HCl [Zavzpret] 1 spray NASAL DAILY PRN 09/07/23 05/09/24 History Potassium Chloride ER [K-Dur 10] 10 meq PO BID 12/10/23 05/09/24 History QUEtiapine FUMARATE [SEROquel] 300 mg PO HS 01/10/24 05/09/24 History Dicyclomine [Bentyl] 10 mg PO QID 7 Days #28 cap 03/12/24 05/09/24 Rx Metoprolol Tartrate 25 mg PO BID #90 tab 03/16/24 05/09/24 Rx Allergies Allergy/AdvReac Type Severity Reaction Status Date / Time dihydroergotamine Allergy Unknown Unknown Verified 05/09/24 14:27 [From Migranal] buprenorphine Allergy Rash/Hives Verified 05/09/24 14:27 gabapentin [From Neurontin] Allergy Itching/Swe Verified 05/09/24 14:27 lling latex Allergy Anaphylaxis Verified 05/09/24 14:27 naproxen [From Naprosyn] Allergy Anaphylaxis Verified 05/09/24 14:27 Penicillins Allergy Anaphylaxis Verified 05/09/24 14:27 quetiapine fumarate Allergy Itching, Verified 05/09/24 14:27 [From Seroquel] leg cramps rofecoxib [From Vioxx] Allergy Itching, Verified 05/09/24 14:27 leg cramps terfenadine [From Seldane] Allergy Rash/Hives Verified 05/09/24 14:27 vancomycin Allergy Rash/Hives/Swelling Verified 05/09/24 14:27 @IV site calcium carbonate [From DHEA] AdvReac Chest Pain Verified 05/09/24 14:27 calcium phosphate,dibasic AdvReac Chest Pain Verified 05/09/24 14:27 [From DHEA] clindamycin AdvReac muscle Verified 05/09/24 14:27 cramps clonidine AdvReac fast Verified 05/09/24 14:27 heartbeat, migraine dextromethorphan HBr AdvReac face/neck Verified 05/09/24 14:27 [From NyQuil] flushing diazepam [From Valium] AdvReac Nausea & Verified 05/09/24 14:27 Vomiting divalproex sodium AdvReac Nausea & Verified 05/09/24 14:27 [From Depakote] Vomiting doxylamine [From NyQuil] AdvReac face "beet Verified 05/09/24 14:27 red", elevated temp. ibuprofen [From Motrin] AdvReac abdominal Verified 05/09/24 14:27 & muscle cramps indomethacin [From Indocin] AdvReac Abdominal Verified 05/09/24 14:27 Pain,N/V ketorolac tromethamine AdvReac "built up Verified 05/09/24 14:27 [From Toradol] in system", had to be given something to reverse lorazepam [From Ativan] AdvReac Nausea & Verified 05/09/24 14:27 Vomiting memantine [From Namenda] AdvReac Itching Verified 05/09/24 14:27 metoclopramide HCl AdvReac muscle Verified 05/09/24 14:27 [From Reglan] cramps nortriptyline [From Pamelor] AdvReac Chest Pain Verified 05/09/24 14:27 prasterone (DHEA) [From DHEA] AdvReac Chest Pain Verified 05/09/24 14:27 prochlorperazine AdvReac leg Verified 05/09/24 14:27 [From Compazine] cramping propranolol AdvReac Chest Pain Verified 05/09/24 14:27 pseudoephedrine HCl AdvReac face "beet Verified 05/09/24 14:27 [From NyQuil] red", elevated temp. quetiapine [From Seroquel] AdvReac leg Verified 05/09/24 14:27 cramping sumatriptan [From Imitrex] AdvReac migrane Verified 05/09/24 14:27 sumatriptan succinate AdvReac migrane Verified 05/09/24 14:27 [From Imitrex] topiramate [From Topamax] AdvReac "built up Verified 05/09/24 14:27 in system", had to be given something to reverse tramadol AdvReac Nausea & Verified 05/09/24 14:27 Vomiting/LEG CRAMPS/HEART FLUTTERS trazodone AdvReac "built up Verified 05/09/24 14:27 in system", had to be given something to reverse zolpidem tartrate AdvReac "Became Verified 05/09/24 14:27 [From Ambien] violent with no memory" zonisamide [From Zonegran] AdvReac inability Verified 05/09/24 14:27 to eat steroids Allergy Swelling Uncoded 05/09/24 10:18 artificial sweetener AdvReac SEVERE Uncoded 05/09/24 10:18 MIGRAINE HEADACHE prosyn AdvReac Itching Uncoded 05/09/24 10:18 Surgical - Exam Vital Signs Temp Pulse Resp BP Pulse Ox 98.7 F 139 H 16 139/87 100 05/09/24 10:15 05/09/24 10:15 05/09/24 10:15 05/09/24 10:15 05/09/24 10:15 Results - Labs 05/09/24 10:53 05/09/24 10:53 Abnormal Lab Results - Last 24 Hours (Table) 05/09/24 05/09/24 Range/Units 10:53 10:53 Neutrophils # 8.1 H (1.3-7.7) k/uL Sodium 135 L (137-145) mmol/L Potassium 3.0 L (3.5-5.1) mmol/L Chloride 95 L (98-107) mmol/L BUN 3 L (7-17) mg/dL Glucose 117 H (74-99) mg/dL ALT 35 H (4-34) U/L Alkaline Phosphatase 224 H (38-126) U/L Diabetes panel 05/09/24 Range/Units 10:53 Sodium 135 L (137-145) mmol/L Potassium 3.0 L (3.5-5.1) mmol/L Chloride 95 L (98-107) mmol/L Carbon Dioxide 28 (22-30) mmol/L BUN 3 L (7-17) mg/dL Creatinine 0.79 (0.52-1.04) mg/dL Glucose 117 H (74-99) mg/dL Calcium 9.0 (8.4-10.2) mg/dL AST 18 (14-36) U/L ALT 35 H (4-34) U/L Alkaline Phosphatase 224 H (38-126) U/L Total Protein 6.6 (6.3-8.2) g/dL Albumin 3.8 (3.5-5.0) g/dL Calcium panel 05/09/24 Range/Units 10:53 Calcium 9.0 (8.4-10.2) mg/dL Albumin 3.8 (3.5-5.0) g/dL Pituitary panel 05/09/24 Range/Units 10:53 Sodium 135 L (137-145) mmol/L Potassium 3.0 L (3.5-5.1) mmol/L Chloride 95 L (98-107) mmol/L Carbon Dioxide 28 (22-30) mmol/L BUN 3 L (7-17) mg/dL Creatinine 0.79 (0.52-1.04) mg/dL Glucose 117 H (74-99) mg/dL Calcium 9.0 (8.4-10.2) mg/dL Adrenal panel 05/09/24 Range/Units 10:53 Sodium 135 L (137-145) mmol/L Potassium 3.0 L (3.5-5.1) mmol/L Chloride 95 L (98-107) mmol/L Carbon Dioxide 28 (22-30) mmol/L BUN 3 L (7-17) mg/dL Creatinine 0.79 (0.52-1.04) mg/dL Glucose 117 H (74-99) mg/dL Calcium 9.0 (8.4-10.2) mg/dL Total Bilirubin 0.5 (0.2-1.3) mg/dL AST 18 (14-36) U/L ALT 35 H (4-34) U/L Alkaline Phosphatase 224 H (38-126) U/L Total Protein 6.6 (6.3-8.2) g/dL Albumin 3.8 (3.5-5.0) g/dL
[2024-05-09] MEDS: HYDROmorphone 1 MG/ML 1 ML SYRINGE IVP PRN (16:45)
[2024-05-09] MEDS ORDERED: CYCLOBENZAPRINE 10 MG TAB PO PRN (17:10)
[2024-05-09] MEDS: HYDROmorphone 0.5 MG/0.5 ML SYRINGE IVP PRN (18:13)
[2024-05-09] MEDS: DICYCLOMINE 10 MG CAP PO SCH (18:13)
[2024-05-09] MEDS: ONDANSETRON 4 MG/2 ML VIAL IVP PRN (19:01)
[2024-05-09] MEDS: ASPIRIN 81 MG PO SCH (21:00)
[2024-05-09] MEDS: DULoxetine HCL 60 MG CAPSULE.DR PO SCH (21:00)
[2024-05-09] MEDS: METOPROLOL TARTRATE 25 MG TAB PO SCH (21:00)
[2024-05-09] MEDS: QUEtiapine 100 MG TAB PO SCH (21:00)
[2024-05-09] MEDS: POTASSIUM CHLORIDE ER 10 MEQ TAB.ER.PRT PO SCH (21:01)
[2024-05-09] MEDS: PANTOPRAZOLE 40 MG TABLET PO SCH (21:01)
[2024-05-09] MEDS: ATORVASTATIN 40 MG TAB PO SCH (21:01)
[2024-05-09] MEDS: MULTIVITAMINS, THERA 1 EACH TAB PO SCH (21:01)
[2024-05-09] MEDS: NON FORMULARY DRUG (Atogepant [Qulipta] 60 MG Tablet) PO SCH (21:06)
[2024-05-09] MEDS: HYDROcodone/APAP 10-325MG 1 EACH TAB PO SCH (22:13)
[2024-05-10] MEDS: CEFEPIME 1 GM in SODIUM CHLORIDE 0.9% 50 ML IVPB SCH (00:08)
--- NOTE | 2024-05-10 07:03 | P.CONS ---
History of Present Illness - Reason for Consult Consult date: 05/09/24 Abdominal wall abscess Requesting physician: Yaa Munoz - Chief Complaint Abdominal pain x 1 day - History of Present Illness Patient is a 54-year-old female with a past medical history significant for Hyperlipidemia, Hypertension, Seizure Disorder, Supraventricular Tachycardia presenting to the hospital for evaluation of right lower quadrant abdominal pain that apparently started the day of presentation to the hospital patient mention she felt like a pop and subsequently noticed increasing pain to the right lower quadrant area patient was describing the pain to be sharp almost 10-10 severity without any radiation patient did have some nausea but no vomiting and denies any diarrhea or constipation did have some chills but no fever patient was afebrile on presentation to the hospital patient was tachycardic but not hypotensive or hypoxic and no need for supplemental oxygen he did have a white count of 10.3 hemoglobin is 12.9 creatinine 0.79 potassium was 3.0 ALT is mildly elevated patient did have a abdominal pelvis CT which did shows right anterior lateral subcutaneous cellulitis fluid collection consistent with an abscess making up to 3.4 cm and attempted aspiration was done by ER physician without any aspiration, patient was started on cefepime because of her multiple antibiotic allergies infectious disease was consulted for further m anagement of antibiotic therapy Review of Systems Positive point and negatives has been mentioned in the HPI, complete review of systems was performed and all other systems are negative Past Medical History Past Medical History: Hyperlipidemia, Hypertension, Seizure Disorder, Supraventricular Tachycardia (SVT) Additional Past Medical History / Comment(s): Migraines, viral meningitis x3 as a child, 1995, 2000, chronic back pain, nerve blocks (neck and occipital nerve) 08/2016 and 12/2016. Last seizure 10/10/2020, "ABSENT SEIZURES. HX TACHYCARDIA, Complex PTSD. gillean barre History of Any Multi-Drug Resistant Organisms: None Reported Past Surgical History: Appendectomy, Section, Cholecystectomy, Heart Catheterization, Heart Catheterization With Stent, Hernia Repair, Hysterectomy, Orthopedic Surgery, Tonsillectomy, Tubal Ligation Additional Past Surgical History / Comment(s): Hiatal Hernia, umbilical hernia repair, left rotator cuff repair, bilateral knee scopes, pain clinic procedures- occipital nerve block. abd exploratory sx(endometreosis), 3 abd scopes 1981, 1989, 1991), lumbar puncture. EGD. nerve biopsy, salvalry gland biospy, Port (Right side 2018, left side 2020), Esophogeal dilation(2023) Past Anesthesia/Blood Transfusion Reactions: No Reported Reaction Additional Past Anesthesia/Blood Transfusion Reaction / Comm: Claustrophobic Date of Last Stent Placement:: 06/03/2022 Past Psychological History: Anxiety, Bipolar, Panic Disorder, PTSD Smoking Status: Former smoker Past Alcohol Use History: None Reported Past Drug Use History: None Reported - Past Family History Mother Family Medical History: Cancer, Dementia, Diabetes Mellitus, GERD/Reflux, Hyperlipidemia, Hypertension, Thyroid Disorder, Vascular Disorder Additional Family Medical History / Comment(s): CABG x2, stents Father History Unknown: Yes Family Medical History: No Reported History Medications and Allergies Home Medications Medication Instructions Recorded Confirmed Type Omeprazole [PriLOSEC] 20 mg PO HS 12/15/20 05/09/24 History Thiamine [Vitamin B-1] 100 mg PO DAILY 01/04/21 05/09/24 History Atorvastatin [Lipitor] 40 mg PO HS 07/20/21 05/09/24 History DULoxetine HCL [Cymbalta] 60 mg PO HS 07/20/21 05/09/24 History Atogepant [Qulipta] 60 mg PO HS 06/03/22 05/09/24 History Cyclobenzaprine [Flexeril] 10 mg PO TID PRN 06/03/22 05/09/24 History HYDROcodone/APAP 10-325MG [[place] 1 tab PO TID 06/03/22 05/09/24 History 10-325] Aspirin 81 mg PO HS 08/29/22 05/09/24 History Cyanocobalamin (Vitamin B-12) 1,000 mcg PO DAILY 09/07/23 05/09/24 History [Vitamin B-12] Multivitamins, Thera [Multivitamin 1 tab PO HS 09/07/23 05/09/24 History (formulary)] Zavegepant HCl [Zavzpret] 1 spray NASAL DAILY PRN 09/07/23 05/09/24 History Potassium Chloride ER [K-Dur 10] 10 meq PO BID 12/10/23 05/09/24 History QUEtiapine FUMARATE [SEROquel] 300 mg PO HS 01/10/24 05/09/24 History Dicyclomine [Bentyl] 10 mg PO QID 7 Days #28 cap 03/12/24 05/09/24 Rx Metoprolol Tartrate 25 mg PO BID #90 tab 03/16/24 05/09/24 Rx Allergies Allergy/AdvReac Type Severity Reaction Status Date / Time dihydroergotamine Allergy Unknown Unknown Verified 05/09/24 14:27 [From Migranal] buprenorphine Allergy Rash/Hives Verified 05/09/24 14:27 gabapentin [From Neurontin] Allergy Itching/Swe Verified 05/09/24 14:27 lling latex Allergy Anaphylaxis Verified 05/09/24 14:27 naproxen [From Naprosyn] Allergy Anaphylaxis Verified 05/09/24 14:27 Penicillins Allergy Anaphylaxis Verified 05/09/24 14:27 quetiapine fumarate Allergy Itching, Verified 05/09/24 14:27 [From Seroquel] leg cramps rofecoxib [From Vioxx] Allergy Itching, Verified 05/09/24 14:27 leg cramps terfenadine [From Seldane] Allergy Rash/Hives Verified 05/09/24 14:27 vancomycin Allergy Rash/Hives/Swelling Verified 05/09/24 14:27 @IV site calcium carbonate [From DHEA] AdvReac Chest Pain Verified 05/09/24 14:27 calcium phosphate,dibasic AdvReac Chest Pain Verified 05/09/24 14:27 [From DHEA] clindamycin AdvReac muscle Verified 05/09/24 14:27 cramps clonidine AdvReac fast Verified 05/09/24 14:27 heartbeat, migraine dextromethorphan HBr AdvReac face/neck Verified 05/09/24 14:27 [From NyQuil] flushing diazepam [From Valium] AdvReac Nausea & Verified 05/09/24 14:27 Vomiting divalproex sodium AdvReac Nausea & Verified 05/09/24 14:27 [From Depakote] Vomiting doxylamine [From NyQuil] AdvReac face "beet Verified 05/09/24 14:27 red", elevated temp. ibuprofen [From Motrin] AdvReac abdominal Verified 05/09/24 14:27 & muscle cramps indomethacin [From Indocin] AdvReac Abdominal Verified 05/09/24 14:27 Pain,N/V ketorolac tromethamine AdvReac "built up Verified 05/09/24 14:27 [From Toradol] in system", had to be given something to reverse lorazepam [From Ativan] AdvReac Nausea & Verified 05/09/24 14:27 Vomiting memantine [From Namenda] AdvReac Itching Verified 05/09/24 14:27 metoclopramide HCl AdvReac muscle Verified 05/09/24 14:27 [From Reglan] cramps nortriptyline [From Pamelor] AdvReac Chest Pain Verified 05/09/24 14:27 prasterone (DHEA) [From DHEA] AdvReac Chest Pain Verified 05/09/24 14:27 prochlorperazine AdvReac leg Verified 05/09/24 14:27 [From Compazine] cramping propranolol AdvReac Chest Pain Verified 05/09/24 14:27 pseudoephedrine HCl AdvReac face "beet Verified 05/09/24 14:27 [From NyQuil] red", elevated temp. quetiapine [From Seroquel] AdvReac leg Verified 05/09/24 14:27 cramping sumatriptan [From Imitrex] AdvReac migrane Verified 05/09/24 14:27 sumatriptan succinate AdvReac migrane Verified 05/09/24 14:27 [From Imitrex] topiramate [From Topamax] AdvReac "built up Verified 05/09/24 14:27 in system", had to be given something to reverse tramadol AdvReac Nausea & Verified 05/09/24 14:27 Vomiting/LEG CRAMPS/HEART FLUTTERS trazodone AdvReac "built up Verified 05/09/24 14:27 in system", had to be given something to reverse zolpidem tartrate AdvReac "Became Verified 05/09/24 14:27 [From Ambien] violent with no memory" zonisamide [From Zonegran] AdvReac inability Verified 05/09/24 14:27 to eat steroids Allergy Swelling Uncoded 05/09/24 10:18 artificial sweetener AdvReac SEVERE Uncoded 05/09/24 10:18 MIGRAINE HEADACHE prosyn AdvReac Itching Uncoded 05/09/24 10:18 Physical Exam Vitals: Vital Signs Temp Pulse Resp BP Pulse Ox 05/09/24 14:07 116 H 18 132/100 99 05/09/24 13:22 108 H 16 05/09/24 10:15 98.7 F 139 H 16 139/87 100 Intake and Output 05/08/24 05/09/24 05/09/24 22:59 06:59 14:59 Other: Weight 68.039 kg GENERAL DESCRIPTION: Middle-aged fmale lying in bed, no distress. No tachypnea or accessory muscle of respiration use. HEENT: Shows Pallor , no scleral icterus. Oral mucous membrane is dry. No pharyngeal erythema or thrush NECK: Trachea central, no thyromegaly. LUNGS: Unlabored breathing. Clear to auscultation anteriorly. No wheeze or crackle. HEART: S1, S2, regular rate and rhythm. No loud murmur ABDOMEN: Soft, right lower abdominal wall area of induration and tenderness EXTREMITIES: No edema of feet. SKIN: No rash, no masses palpable. NEUROLOGICAL: The patient is awake, alert, oriented x3, mood and affect normal. Results CBC & Chem 7: 05/09/24 10:53 05/09/24 10:53 Labs: Abnormal Lab Results - Last 24 Hours (Table) 05/09/24 05/09/24 Range/Units 10:53 10:53 Neutrophils # 8.1 H (1.3-7.7) k/uL Sodium 135 L (137-145) mmol/L Potassium 3.0 L (3.5-5.1) mmol/L Chloride 95 L (98-107) mmol/L BUN 3 L (7-17) mg/dL Glucose 117 H (74-99) mg/dL ALT 35 H (4-34) U/L Alkaline Phosphatase 224 H (38-126) U/L Assessment and Plan (1) Allergy to multiple antibiotics Current Visit: Yes Status: Acute Code(s): Z88.1 - ALLERGY STATUS TO OTHER ANTIBIOTIC AGENTS SNOMED Code(s): 090274588 (2) Abdominal wall abscess Current Visit: Yes Status: Acute Code(s): L02.211 - CUTANEOUS ABSCESS OF ABDOMINAL WALL SNOMED Code(s): 86459406 Plan: 1patient presented to hospital with right lower quadrant abdominal pain started the day of presentation the hospital did have abnormal CT concerning for possible abscess versus hematoma as patient not running any fever and did not have a normal white count 2-patient with multiple antibiotic ALLERGIES that would limit the number of antibiotic safe to use 3-await surgical drainage and deep culture 4-patient to continue cefepime, will add daptomycin to cover for the gram- positive while waiting for the workup to be completed We will follow on clinical condition and cultures to further adjust medication if needed Thank you for this consultation we will follow the patient along with you Dictation was produced using [email or web address] dictation software. please excuse any grammatical, word or spelling errors. Time with Patient: Greater than 30
[2024-05-10] MEDS: CYANOCOBALAMIN 500 MCG TAB PO SCH (08:32)
[2024-05-10] MEDS: THIAMINE 100 MG TAB PO SCH (08:34)
--- NOTE | 2024-05-10 10:58 | P.HPIM ---
History of Present Illness H&P Date: 05/10/24 Chief Complaint: Abdominal pain Patient is a 54-year-old female with past medical history of multiple umbilical hernias with surgical repairs, CAD with stent placement hypertension, hyperlipidemia, SVT, migraines, Guillain-Cárdenas syndrome, and complex PTSD who presented to the ER with chief complaint of abdominal pain. Patient states she was sitting on the sofa yesterday and sneezed and felt a pop and then the pain started. Patient denies any trauma to the area. Patient denies any recent abdominal surgeries. She does endorse esophageal dilation and cardiac ablation completed in March. She also endorses some nausea and decreased oral intake. She denies chest pain, shortness of breath, fevers, chills, vomiting or diarrhea. Vitals on admission temperature 98.7, heart rate 139, respiratory rate 16, blood pressure 139/87, O2 saturation 100% on room air CT of abdomen pelvis shows right anterior lateral subcutaneous organized fluid collection Labs on admission show WBCs 10.3, hemoglobin 12.9, MCV 96.9, platelets 442. Sodium 135, potassium 3, chloride 95, bicarb 28, BUN 3, creatinine 0.79, glucose 117. AST 18, ALT 35, ALP 224. Review of systems: Pertinent positives and negatives as discussed in HPI, a complete review of systems was performed and all other systems are negative. Allergies: as listed in chart PCP: Dr. Reece Social history: Tobacco: none Alcohol: none Recreational drugs: none Travel: none Sick contacts: none Physical examination: Vital signs reviewed General: nontoxic, no distress, appears at stated age Derm: warm, dry, intact Head: atraumatic, normocephalic, symmetric Eyes: anicteric sclera Mouth: no lip lesion, mucus membranes moist Cardiovascular: S1 S2 reg, no murmur Lungs: CTA bilateral, no rhonchi, no rales, no accessory muscle use Abdominal: soft, nondistended, abdominal binder in place, firm loculated collection in right lower quadrant tender to palpation Extremities: No cyanosis, clubbing, or pedal edema. Neuro: Alert, Oriented to person, time and place, Gross neurological examination did not reveal any focal deficits. Cranial nerves II to XII grossly intact. Bilateral upper and lower extremity muscle strength intact and sensation intact. Psych: well appearing, appropriate affect Assessment/Plan: Patient is a 54-year-old female with past medical history of multiple umbilical hernias with surgical repairs, CAD with stent placement hypertension, hyperlipidemia, SVT, migraines, Guillain-Cárdenas syndrome, and complex PTSD who presented to the ER with chief complaint of abdominal pain. Patient will be admitted to internal medicine service for further evaluation. Active: Severe abdominal hematoma, less likely abscess due to no systemic symptoms or leukocytosis Canceled IR consult Consult surgery, appreciate recommendations Discussed with patient regarding less extraneous movements in order not to cause increased intra-abdominal pressure ID is consulted, will continue cefepime and daptomycin for now Pain control Hyponatremia, hypokalemia, hypochloremia likely secondary to decreased oral intake Will replete Continue to monitor with CMP Mild transaminitis Continue to monitor with CMP Chronic: Hypertension Continue metoprolol 25 mg twice daily Hyperlipidemia Continue Lipitor 40 mg p.o. at bedtime CAD with stent placement Continue aspirin 81 mg p.o. at bedtime Complex PTSD Continue Cymbalta 60 mg p.o. at bedtime Continue Seroquel 300 mg p.o. at bedtime GERD Continue Protonix 40 mg daily Continue thiamine 100 mg daily Continue B12 1000 mcg daily F: None E: Replete as needed N: Regular diet A: As tolerated DVT prophylaxis: SCDs The patient is admitted with an anticipated more than 2 midnight stay for evaluation of abdominal hematoma CODE STATUS: Full code Discussed with: Patient Anticipated discharge place: Pending clinical course Past Medical History Past Medical History: Hyperlipidemia, Hypertension, Seizure Disorder, Supraventricular Tachycardia (SVT) Additional Past Medical History / Comment(s): Migraines, viral meningitis x3 as a child, 1995, 2000, chronic back pain, nerve blocks (neck and occipital nerve) 08/2016 and 12/2016. Last seizure 10/10/2020, "ABSENT SEIZURES. HX TACHYCARDIA, Complex PTSD. gillean barre History of Any Multi-Drug Resistant Organisms: None Reported Past Surgical History: Appendectomy, Section, Cholecystectomy, Heart Catheterization, Heart Catheterization With Stent, Hernia Repair, Hysterectomy, Orthopedic Surgery, Tonsillectomy, Tubal Ligation Additional Past Surgical History / Comment(s): Hiatal Hernia, umbilical hernia repair, left rotator cuff repair, bilateral knee scopes, pain clinic procedures- occipital nerve block. abd exploratory sx(endometreosis), 3 abd scopes 1981, 1989, 1991), lumbar puncture. EGD. nerve biopsy, salvalry gland biospy, Port (Right side 2018, left side 2020), Esophogeal dilation(2023) Past Anesthesia/Blood Transfusion Reactions: No Reported Reaction Additional Past Anesthesia/Blood Transfusion Reaction / Comment(s): Claustrophobic Date of Last Stent Placement:: 06/03/2022 Past Psychological History: Anxiety, Bipolar, Panic Disorder, PTSD Smoking Status: Former smoker Past Alcohol Use History: None Reported Past Drug Use History: None Reported - Past Family History Mother Family Medical History: Cancer, Dementia, Diabetes Mellitus, GERD/Reflux, Hyperlipidemia, Hypertension, Thyroid Disorder, Vascular Disorder Additional Family Medical History / Comment(s): CABG x2, stents Father History Unknown: Yes Family Medical History: No Reported History Medications and Allergies Home Medications Medication Instructions Recorded Confirmed Type Omeprazole [PriLOSEC] 20 mg PO HS 12/15/20 05/09/24 History Thiamine [Vitamin B-1] 100 mg PO DAILY 01/04/21 05/09/24 History Atorvastatin [Lipitor] 40 mg PO HS 07/20/21 05/09/24 History DULoxetine HCL [Cymbalta] 60 mg PO HS 07/20/21 05/09/24 History Atogepant [Qulipta] 60 mg PO HS 06/03/22 05/09/24 History Cyclobenzaprine [Flexeril] 10 mg PO TID PRN 06/03/22 05/09/24 History HYDROcodone/APAP 10-325MG [[place] 1 tab PO TID 06/03/22 05/09/24 History 10-325] Aspirin 81 mg PO HS 08/29/22 05/09/24 History Cyanocobalamin (Vitamin B-12) 1,000 mcg PO DAILY 09/07/23 05/09/24 History [Vitamin B-12] Multivitamins, Thera [Multivitamin 1 tab PO HS 09/07/23 05/09/24 History (formulary)] Zavegepant HCl [Zavzpret] 1 spray NASAL DAILY PRN 09/07/23 05/09/24 History Potassium Chloride ER [K-Dur 10] 10 meq PO BID 12/10/23 05/09/24 History QUEtiapine FUMARATE [SEROquel] 300 mg PO HS 01/10/24 05/09/24 History Dicyclomine [Bentyl] 10 mg PO QID 7 Days #28 cap 03/12/24 05/09/24 Rx Metoprolol Tartrate 25 mg PO BID #90 tab 03/16/24 05/09/24 Rx Allergies Allergy/AdvReac Type Severity Reaction Status Date / Time dihydroergotamine Allergy Unknown Unknown Verified 05/09/24 14:27 [From Migranal] buprenorphine Allergy Rash/Hives Verified 05/09/24 14:27 gabapentin [From Neurontin] Allergy Itching/Swe Verified 05/09/24 14:27 lling latex Allergy Anaphylaxis Verified 05/09/24 14:27 naproxen [From Naprosyn] Allergy Anaphylaxis Verified 05/09/24 14:27 Penicillins Allergy Anaphylaxis Verified 05/09/24 14:27 quetiapine fumarate Allergy Itching, Verified 05/09/24 14:27 [From Seroquel] leg cramps rofecoxib [From Vioxx] Allergy Itching, Verified 05/09/24 14:27 leg cramps terfenadine [From Seldane] Allergy Rash/Hives Verified 05/09/24 14:27 vancomycin Allergy Rash/Hives/Swelling Verified 05/09/24 14:27 @IV site calcium carbonate [From DHEA] AdvReac Chest Pain Verified 05/09/24 14:27 calcium phosphate,dibasic AdvReac Chest Pain Verified 05/09/24 14:27 [From DHEA] clindamycin AdvReac muscle Verified 05/09/24 14:27 cramps clonidine AdvReac fast Verified 05/09/24 14:27 heartbeat, migraine dextromethorphan HBr AdvReac face/neck Verified 05/09/24 14:27 [From NyQuil] flushing diazepam [From Valium] AdvReac Nausea & Verified 05/09/24 14:27 Vomiting divalproex sodium AdvReac Nausea & Verified 05/09/24 14:27 [From Depakote] Vomiting doxylamine [From NyQuil] AdvReac face "beet Verified 05/09/24 14:27 red", elevated temp. ibuprofen [From Motrin] AdvReac abdominal Verified 05/09/24 14:27 & muscle cramps indomethacin [From Indocin] AdvReac Abdominal Verified 05/09/24 14:27 Pain,N/V ketorolac tromethamine AdvReac "built up Verified 05/09/24 14:27 [From Toradol] in system", had to be given something to reverse lorazepam [From Ativan] AdvReac Nausea & Verified 05/09/24 14:27 Vomiting memantine [From Namenda] AdvReac Itching Verified 05/09/24 14:27 metoclopramide HCl AdvReac muscle Verified 05/09/24 14:27 [From Reglan] cramps nortriptyline [From Pamelor] AdvReac Chest Pain Verified 05/09/24 14:27 prasterone (DHEA) [From DHEA] AdvReac Chest Pain Verified 05/09/24 14:27 prochlorperazine AdvReac leg Verified 05/09/24 14:27 [From Compazine] cramping propranolol AdvReac Chest Pain Verified 05/09/24 14:27 pseudoephedrine HCl AdvReac face "beet Verified 05/09/24 14:27 [From NyQuil] red", elevated temp. quetiapine [From Seroquel] AdvReac leg Verified 05/09/24 14:27 cramping sumatriptan [From Imitrex] AdvReac migrane Verified 05/09/24 14:27 sumatriptan succinate AdvReac migrane Verified 05/09/24 14:27 [From Imitrex] topiramate [From Topamax] AdvReac "built up Verified 05/09/24 14:27 in system", had to be given something to reverse tramadol AdvReac Nausea & Verified 05/09/24 14:27 Vomiting/LEG CRAMPS/HEART FLUTTERS trazodone AdvReac "built up Verified 05/09/24 14:27 in system", had to be given something to reverse zolpidem tartrate AdvReac "Became Verified 05/09/24 14:27 [From Ambien] violent with no memory" zonisamide [From Zonegran] AdvReac inability Verified 05/09/24 14:27 to eat steroids Allergy Swelling Uncoded 05/09/24 10:18 artificial sweetener AdvReac SEVERE Uncoded 05/09/24 10:18 MIGRAINE HEADACHE prosyn AdvReac Itching Uncoded 05/09/24 10:18 Physical Exam Vitals: Vital Signs Temp Pulse Pulse Resp BP BP Pulse Ox 05/10/24 00:45 97.6 F 93 20 110/73 92 L 05/09/24 19:15 98.3 F 112 H 20 141/88 96 05/09/24 17:43 110 H 05/09/24 17:21 98.9 F 139 H 15 127/93 97 05/09/24 16:48 97.9 F 110 H 18 139/87 94 L 05/09/24 15:16 105 H 18 125/92 98 05/09/24 14:07 116 H 18 132/100 99 05/09/24 13:22 108 H 16 05/09/24 10:15 98.7 F 139 H 16 139/87 100 Intake and Output 05/09/24 05/10/24 05/10/24 22:59 06:59 14:59 Other: Voiding Method Toilet Toilet # Voids 2 6 # Bowel Movements 1 Weight 68.039 kg Results CBC & Chem 7: 05/09/24 10:53 05/09/24 10:53 Labs: Abnormal Lab Results - Last 24 Hours (Table) 05/09/24 05/09/24 Range/Units 10:53 10:53 Neutrophils # 8.1 H (1.3-7.7) k/uL Sodium 135 L (137-145) mmol/L Potassium 3.0 L (3.5-5.1) mmol/L Chloride 95 L (98-107) mmol/L BUN 3 L (7-17) mg/dL Glucose 117 H (74-99) mg/dL ALT 35 H (4-34) U/L Alkaline Phosphatase 224 H (38-126) U/L Thrombosis Risk Factor Assmnt - Choose All That Apply Any of the Below Risk Factors Present?: Yes Each Factor Represents 1 point: Age 41-60 years, Obesity (BMI >25) Other Risk Factors: No Thrombosis Risk Factor Assessment Total Risk Factor Score: 2 Thrombosis Risk Factor Assessment Level: Low Risk
--- NOTE | 2024-05-10 12:38 | P.PN ---
Subjective Progress Note Date: 05/10/24 Principal diagnosis: Reason for follow-up is abdominal abscess Patient is a 54-year-old female with a past medical history significant for Hyperlipidemia, Hypertension, Seizure Disorder, Supraventricular Tachycardia presenting to the hospital for evaluation of right lower quadrant abdominal pain that apparently started the day of presentation to the hospital, patient did have a CT concerning for the right lower quadrant fluid collection concerning for possible abscess. On today's evaluation that is 05/10/2024, patient has been afebrile, patient is breathing comfortably and is currently on room air, patient denies having any significant cough no chest pain, patient denies nausea vomiting or diarrhea still complaining of right lower quadrant pain intensity about the same simply with the pain medication. No new labs has been repeated today Objective - Vital Signs Vital signs: Vital Signs Temp 97.9 F 05/10/24 07:00 Pulse 71 05/10/24 12:17 Resp 16 05/10/24 12:17 BP 107/74 05/10/24 12:17 Pulse Ox 95 05/10/24 12:17 FiO2 Intake & Output 05/09/24 05/10/24 05/10/24 18:59 06:59 18:59 Weight 68.039 kg Other: Voiding Method Toilet Toilet # Voids 6 # Bowel Movements 1 - Exam GENERAL DESCRIPTION: Middle-age female lying in bed in no distress RESPIRATORY SYSTEM: Unlabored breathing , decreased breath sounds at bases HEART: S1 S2 regular rate and rhythm , ABDOMEN: Soft , right lower quadrant swelling induration and minimal redness EXTREMITIES: No edema feet - Labs CBC & Chem 7: 05/09/24 10:53 05/09/24 10:53 Assessment and Plan (1) Allergy to multiple antibiotics Current Visit: Yes Status: Acute Code(s): Z88.1 - ALLERGY STATUS TO OTHER AN TIBIOTIC AGENTS SNOMED Code(s): 360139565 (2) Abdominal wall abscess Current Visit: Yes Status: Acute Code(s): L02.211 - CUTANEOUS ABSCESS OF ABDOMINAL WALL SNOMED Code(s): 21915123 Plan: 1patient presented to hospital with right lower quadrant abdominal pain started the day of presentation the hospital did have abnormal CT concerning for possible abscess versus hematoma as patient not running any fever and did not have a normal white count 2-patient with multiple antibiotic ALLERGIES that would limit the number of antibiotic safe to use 3-patient has been eval by general surgery IR drainage has been requested currently pending 4-patient to continue cefepime and daptomycin while waiting for the workup to be completed Dictation was produced using [employer] dictation software. please excuse any grammatical, word or spelling errors. Time with Patient: Less than 30
--- NOTE | 2024-05-10 14:35 | P.PN ---
Subjective Progress Note Date: 05/10/24 SURGICAL PROGRESS NOTE CHIEF COMPLAINT: Right lower abdominal wall pain HISTORY OF PRESENT ILLNESS: Patient continues to complain of pain in the right lower quadrant of the abdomen. Patient reports that after she sneezed she felt a pop and swelling in that right lower quadrant. CT scan had shown evidence of a fluid collection. Patient has been afebrile. White count normal at 10.3. She has been mildly tachycardic. IR services has been consulted for drain placement. PHYSICAL EXAM: VITAL SIGNS: Reviewed. GENERAL: Well-developed in no acute distress. ABDOMEN: Soft. Nondistended. Patient has a firmness with mild bruising noted in the right lower quadrant of the abdomen. Tender with palpation. NEUROLOGIC: Alert and oriented. Cranial nerves II through XII grossly intact. ASSESSMENT: 1. Abdominal pain right lower quadrant with fluid collection noted on CT scan 2. Traumatic hematoma versus seroma. Possible abscess but unlikely. Patient afebrile with normal white count PLAN: -Case and CT scan findings discussed with Dr. Trejo. He does recommend IR consulted for drainage of fluid collection -Antibiotics per ID service -Continue to monitor Physician Cylinder Die Machine Helper note has been reviewed by physician. Signing provider agrees with the documented findings, assessment, and plan of care. Objective - Vital Signs Vital signs: Vital Signs Temp 97.9 F 05/10/24 07:00 Pulse 79 05/10/24 13:55 Resp 16 05/10/24 13:55 BP 107/74 05/10/24 12:17 Pulse Ox 100 05/10/24 13:55 FiO2 Intake & Output 05/09/24 05/10/24 05/10/24 18:59 06:59 18:59 Weight 68.039 kg Other: Voiding Method Toilet Toilet # Voids 6 # Bowel Movements 1 - Labs CBC & Chem 7: 05/09/24 10:53 05/09/24 10:53
[2024-05-10 15:22] LABS: ALT 36 U/L (4-34); AST 30 U/L (14-36); African American GFR (CKD) >90 (>60 ml/min/1.73 sqM); Albumin 3.5 g/dL (3.5-5.0); Albumin/Globulin Ratio 1.3; Alkaline Phosphatase 255 U/L (38-126); Anion Gap 6 mmol/L; Blood Urea Nitrogen 3 mg/dL (7-17); Calcium 9.4 mg/dL (8.4-10.2); Carbon Dioxide 30 mmol/L (22-30); Chloride 100 mmol/L (98-107); Globulin 2.7 g/dL; Glucose 109 mg/dL (74-99); Non-African American GFR(CKD) >90 (>60 ml/min/1.73 sqM); Potassium 4.2 mmol/L (3.5-5.1); Sodium 136 mmol/L (137-145); Total Bilirubin 0.7 mg/dL (0.2-1.3); Total Protein 6.2 g/dL (6.3-8.2)
--- NOTE | 2024-05-11 06:28 | US ---
EXAM: Ultrasound GUIDED ASPIRATION OF RIGHT LOWER QUADRANT ATTENDING: DR Sang BRO Comparison: CT abdomen and pelvis one day earlier. PROCEDURE: Informed consent was obtained. Risks including bleeding, infection, damage to surrounding structures, and the potential need for further procedures as well as benefits were explained. All patient questi ons were answered. Initial ultrasound images were taken which showed irregular fluid collection measuring near 3.0 cm in the subcutaneous tissue of the right abdominal wall. Prior to beginning the procedure was canceled. Patient was returned to floor. Procedure was then re-ordered and repeat imaging again demonstrated ar ound 3.0 cm fluid collection in the right sided, wall subcutaneous tissue. The patient was prepped and draped. Lidocaine was used as anesthetic. A 5 [place] safety Rattle cat heter was advanced into the fluid collection and 14 cc of dark cloudy fluid with eventual some blood product was aspirated. There was marked improvement in the subcutaneous focal fluid collection in the right anterior abdominal wall. The specimen was sent to pathology for further evaluation. The patien t tolerated the procedure well without complication. A pigtail catheter for drainage could not be didier russell due to small size of collection. IMPRESSION: Successful ultrasound-guided fine-needle aspiration of subcutaneous painful right anterior abdominal wall fluid collection. Pathology results pending. [facility], , 05/11/2024 6:26 AM
[2024-05-11 09:51] LABS: ALT 29 U/L (8-44); AST 26 U/L (13-35); Albumin 3.1 g/dL (3.8-4.9); Albumin/Globulin Ratio 1.41 Ratio (1.60-3.17); Alkaline Phosphatase 199 U/L (41-126); BUN/Creat Ratio 5.38 Ratio (12.00-20.00); Blood Urea Nitrogen 4.3 mg/dL (9.0-27.0); Calcium 8.8 mg/dL (8.7-10.3); Chloride 101 mmol/L (96-109); Globulin 2.2 g/dL (1.6-3.3); Glucose 101 mg/dL (70-110); Potassium 4.3 mmol/L (3.5-5.5); Sodium 138 mmol/L (135-145); Total Bilirubin 0.3 mg/dL (0.3-1.2); Total Protein 5.3 g/dL (6.2-8.2)
[2024-05-11 10:53] LABS: Basophils # (A) 0.04 X 10*3/uL (0.00-0.10); Basophils % (A) 0.6 %; Eosinophils # (A) 0.17 X 10*3/uL (0.04-0.35); Eosinophils % (A) 2.7 %; HGB 10.2 g/dL (12.0-15.0); Lymphocytes # (A) 1.74 X 10*3/uL (0.90-5.00); Lymphocytes % (A) 27.9 %; MCH 31.5 pg (27.0-32.0); MCHC 30.9 g/dL (32.0-37.0); MCV 101.9 FL (80.0-97.0); Mean Platelet Volume 12.1 FL (9.5-12.2); Monocytes # (A) 0.65 X 10*3/uL (0.20-1.00); Monocytes % (A) 10.4 %; NRBC Per 100 WBC 0 X 10*3/uL (0.00-0.01); Neutrophils # (A) 3.62 X 10*3/uL (1.80-7.70); Neutrophils % (A) 58.2 %; Platelet Count 336 X 10*3/uL (140-440); RBC 3.24 X 10*6/uL (4.10-5.20); RDW 12.7 % (11.5-14.5); WBC 6.23 X 10*3/uL (4.50-10.00)
--- NOTE | 2024-05-11 13:29 | P.PN ---
Subjective Progress Note Date: 05/11/24 SURGICAL PROGRESS NOTE CHIEF COMPLAINT: Right lower abdominal wall pain HISTORY OF PRESENT ILLNESS: Patient is status post aspiration of the abdominal wall fluid collection. Fluid was dark and cloudy with blood product 14 cc removed by IR service. Patient reports last night she had increase in pain in that right lower quadrant and felt a popping sensation. She has had no drainage from the aspiration site. Patient continues to have abdominal pain. She does not feel any improvement in the pain. Denies any nausea or vomiting. Afebrile. WBC 6.23 Hgb 10.2 down from 12.9 PHYSICAL EXAM: VITAL SIGNS: Reviewed. GENERAL: Well-developed in no acute distress. ABDOMEN: Soft. Nondistended. Patient continues to have firmness and swelling in the right lower quadrant. Mild bruising noted. No drainage. Tender with palpation. NEUROLOGIC: Alert and oriented. Cranial nerves II through XII grossly intact. ASSESSMENT: 1. Abdominal wall hematoma status post aspiration by IR service PLAN: -Follow-up on culture results -Antibiotics per ID service Physician Waste[employer] Supervisor note has been reviewed by physician. Signing provider agrees with the documented findings, assessment, and plan of care. Objective - Vital Signs Vital signs: Vital Signs Temp 97.9 F 05/11/24 07:00 Pulse 90 05/11/24 07:00 Resp 18 05/11/24 07:00 BP 112/79 05/11/24 08:30 Pulse Ox 97 05/11/24 07:00 FiO2 Intake & Output 05/10/24 05/11/24 05/11/24 18:59 06:59 18:59 Intake Total 118 444 Balance 118 444 Intake: Oral 118 444 Other: Voiding Method Toilet # Voids 2 3 - Labs CBC & Chem 7: 05/11/24 04:00 05/11/24 04:00 Labs: Abnormal Lab Results - Last 24 Hours (Table) 05/10/24 05/11/24 05/11/24 Range/Units 14:58 04:00 04:00 RBC 3.24 L (4.10-5.20) X 10*6/uL Hgb 10.2 L (12.0-15.0) g/dL Hct 33.0 L (37.2-46.3) % MCV 101.9 H (80.0-97.0) FL MCHC 30.9 L (32.0-37.0) g/dL Sodium 136 L (137-145) mmol/L BUN 3 L 4.3 L (7-17) mg/dL BUN/Creatinine Ratio 5.38 L (12.00-20.00) Ratio Glucose 109 H (74-99) mg/dL ALT 36 H (4-34) U/L Alkaline Phosphatase 255 H 199 H (38-126) U/L Total Protein 6.2 L 5.3 L (6.3-8.2) g/dL Albumin 3.1 L (3.8-4.9) g/dL Albumin/Globulin Ratio 1.41 L (1.60-3.17) Ratio Microbiology - Last 24 Hours (Table) 05/09/24 15:10 Blood Culture - Preliminary Blood
--- NOTE | 2024-05-11 14:58 | P.PN ---
Subjective Progress Note Date: 05/11/24 Principal diagnosis: Reason for follow-up is abdominal abscess Patient is a 54-year-old female with a past medical history significant for Hyperlipidemia, Hypertension, Seizure Disorder, Supraventricular Tachycardia presenting to the hospital for evaluation of right lower quadrant abdominal pain that apparently started the day of presentation to the hospital, patient did have a CT concerning for the right lower quadrant fluid collection concerning for possible abscess.Patient is status post ultrasound-guided drainage of the right lower quadrant completed on 05/11/2024 On today's evaluation 05/11/2024, Patient is afebrile this morning patient denies having any chest pain shortness of breath or cough, the patient is currently on room air, patient did have some nausea but no vomiting; significant right lower quadrant abdominal pain postprocedure. Patient white count 6.23 creatinine 0.8 cultures currently pending Objective - Vital Signs Vital signs: Vital Signs Temp 97.9 F 05/11/24 07:00 Pulse 90 05/11/24 07:00 Resp 18 05/11/24 07:00 BP 112/79 05/11/24 08:30 Pulse Ox 97 05/11/24 07:00 FiO2 Intake & Output 05/10/24 05/11/24 05/11/24 18:59 06:59 18:59 Intake Total 118 444 Balance 118 444 Intake: Oral 118 444 Other: Voiding Method Toilet # Voids 2 3 - Exam GENERAL DESCRIPTION: Middle-age female lying in bed in no distress RESPIRATORY SYSTEM: Unlabored breathing , decreased breath sounds at bases HEART: S1 S2 regular rate and rhythm , ABDOMEN: Soft , right lower quadrant swelling induration and minimal redness EXTREMITIES: No edema feet - Labs CBC & Chem 7: 05/11/24 04:00 05/11/24 04:00 Labs: Abnormal Lab Results - Last 24 Hours (Table) 05/10/24 05/11/24 05/11/24 Range/Units 14:58 04:00 04:00 RBC 3.24 L (4.10-5.20) X 10*6/uL Hgb 10.2 L (12.0-15.0) g/dL Hct 33.0 L (37.2-46.3) % MCV 101.9 H (80.0-97.0) FL MCHC 30.9 L (32.0-37.0) g/dL Sodium 136 L (137-145) mmol/L BUN 3 L 4.3 L (7-17) mg/dL BUN/Creatinine Ratio 5.38 L (12.00-20.00) Ratio Glucose 109 H (74-99) mg/dL ALT 36 H (4-34) U/L Alkaline Phosphatase 255 H 199 H (38-126) U/L Total Protein 6.2 L 5.3 L (6.3-8.2) g/dL Albumin 3.1 L (3.8-4.9) g/dL Albumin/Globulin Ratio 1.41 L (1.60-3.17) Ratio Microbiology - Last 24 Hours (Table) 05/09/24 15:10 Blood Culture - Preliminary Blood Assessment and Plan (1) Allergy to multiple antibiotics Current Visit: Yes Status: Acute Code(s): Z88.1 - ALLERGY STATUS TO OTHER ANTIBIOTIC AGENTS SNOMED Code(s): 267266567 (2) Abdominal wall abscess Current Visit: Yes Status: Acute Code(s): L02.211 - CUTANEOUS ABSCESS OF ABDOMINAL WALL SNOMED Code(s): 02725881 Plan: 1patient presented to hospital with right lower quadrant abdominal pain started the day of presentation the hospital did have abnormal CT concerning for possible abscess versus hematoma as patient not running any fever and did not have a normal white count 2-patient with multiple antibiotic ALLERGIES that would limit the number of antibiotic safe to use 3-patient has been eval by general surgery IR drainage has been requested which was completed on 05/11/2024 with cultures pending 4-patient will be treated cefepime and daptomycin while waiting for the culture to finalize Dictation was produced using [employer] dictation software. please excuse any grammatical, word or spelling errors. Time with Patient: Less than 30
[2024-05-11] MEDS: HYDROmorphone 1 MG/ML 1 ML SYRINGE IM STA (16:38)
--- NOTE | 2024-05-11 16:46 | P.PN ---
Subjective Progress Note Date: 05/11/24 Hospital Course: Patient is a 54-year-old female with past medical history of multiple umbilical hernias with surgical repairs, CAD with stent placement hypertension, hyperlipidemia, SVT, migraines, Guillain-Cárdenas syndrome, and complex PTSD who presented to the ER with chief complaint of abdominal pain. Patient states she was sitting on the sofa yesterday and sneezed and felt a pop and then the pain s tarted. Patient denies any trauma to the area. Patient denies any recent abdominal surgeries. She does endorse esophageal dilation and cardiac ablation completed in March. She also endorses some nausea and decreased oral intake. She denies chest pain, shortness of breath, fevers, chills, vomiting or diarrhea. Subjective: Patient seen and examined at bedside. No acute events overnight. Pertinent positives and negatives discussed above, a complete review of systems was preformed and all the other systems were negative. Patient states that her belly is more tender today and that her pain is a 10 out of 10. She is also endorsing some nausea and decreased appetite. Vitals Signs Reviewed. General: non toxic, no distress, appears at stated age, normal weight Derm: no unusual rashes/lesions, warm Head: atraumatic, normocephalic, symmetric Eyes: EOMI, no lid lag, anicteric sclera, pupils equal round reactive to light ENT: Nose and ears atraumatic Neck: No cervical lymphadenopathy, trachea midline, supple Mouth: no lip lesion, mucus membranes moist Cardiovascular: S1S2 reg, no murmur, positive dorsalis pedis pulse bilateral, no edema Lungs: Decreased air entry bilaterally, no rhonchi, no rales, no accessory muscle use Abdominal: soft, nontender to palpation, no guarding Ext: muscle strength 5 out of 5 in all 4 extremities grossly, no gross muscle atrophy, no contractures, Neuro: CN II-XI grossly intact, no gross focal neuro deficits Psych: Alert, oriented, appropriate affect Data Reviewed Today: Patient Labs: WBC 6.23, hemoglobin 10.2, MCV 101.9 336. Sodium 138, potassium 4.3, chloride 101, bicarb 28, BUN 4.3, creatinine 0.8, glucose 101. AST 26, ALT 29, ALP 199. Assessment and Plan: Abdominal hematoma vs abscess Consult surgery Discussed with patient regarding less extraneous movements in order not to cause increased intra-abdominal pressure ID is consulted Continue cefepime and daptomycin for now Pain control Patient underwent IR drainage yesterday Follow-up on fluid cultures Mild transaminitis, downtrending Continue to monitor with CMP Hyponatremia, hypokalemia, hypochloremia likely secondary to decreased oral intake, resolved Chronic: Hypertension Continue metoprolol 25 mg twice daily Hyperlipidemia Continue Lipitor 40 mg at bedtime CAD with stent placement Continue aspirin 81 mg p.o. at bedtime Complex PTSD Continue Cymbalta 60 mg p.o. at bedtime Continue Seroquel 300 mg p.o. at bedtime GERD Continue Protonix 40 mg daily History of macrocytic anemia Continue thiamine 100 mg daily Continue B12 1000 mcg daily F: None E: Replete as needed N: Regular diet A: As tolerated DVT prophylaxis: SCDs The patient is admitted with an anticipated more than 2 midnight stay for evaluation of abdominal hematoma CODE STATUS: Full code Discussed with: Patient Anticipated discharge place: Pending clinical course Objective - Vital Signs Vital signs: Vital Signs Temp 97.9 F 05/11/24 07:00 Pulse 90 05/11/24 07:00 Resp 18 05/11/24 07:00 BP 94/61 05/11/24 07:00 Pulse Ox 97 05/11/24 07:00 FiO2 Intake & Output 05/10/24 05/11/24 05/11/24 18:59 06:59 18:59 Intake Total 118 Balance 118 Intake: Oral 118 Other: Voiding Method Toilet # Voids 2 3 - Labs CBC & Chem 7: 05/11/24 04:00 05/11/24 04:00 Labs: Abnormal Lab Results - Last 24 Hours (Table) 05/10/24 Range/Units 14:58 Sodium 136 L (137-145) mmol/L BUN 3 L (7-17) mg/dL Glucose 109 H (74-99) mg/dL ALT 36 H (4-34) U/L Alkaline Phosphatase 255 H (38-126) U/L Total Protein 6.2 L (6.3-8.2) g/dL Microbiology - Last 24 Hours (Table) 05/09/24 15:10 Blood Culture - Preliminary Blood
[2024-05-11] MEDS: ALTEPLASE 2 MG VIAL (CATHFLO) MISCELLANE ONE (17:58)
[2024-05-11 19:24] LABS: INR 0.9 (<1.2); Partial Thromboplastin Time 24.4 sec (22.0-30.0); Prothrombin Time 10.1 sec (10.0-12.5)
[2024-05-12 08:51] LABS: Basophils % (A) 1 %; Eosinophils # (A) 0.2 k/uL (0-0.7); Eosinophils % (A) 3 %; HCT 35.4 % (34.0-46.0); HGB 11.4 gm/dL (11.4-16.0); Hypochromasia Slight; Lymphocytes # (A) 1.5 k/uL (1.0-4.8); Lymphocytes % (A) 29 %; MCH 32.6 pg (25.0-35.0); MCHC 32.3 g/dL (31.0-37.0); MCV 101.1 fL (80.0-100.0); Mean Platelet Volume 8.4; Monocytes # (A) 0.3 k/uL (0-1.0); Monocytes % (A) 6 %; Neutrophils # (A) 3.1 k/uL (1.3-7.7); Neutrophils % (A) 59 %; Platelet Count 311 k/uL (150-450); RDW 12.3 % (11.5-15.5); WBC 5.2 k/uL (3.8-10.6)
[2024-05-12 09:10] LABS: ALT 24 U/L (4-34); AST 19 U/L (14-36); African American GFR (CKD) >90 (>60 ml/min/1.73 sqM); Albumin 3.4 g/dL (3.5-5.0); Albumin/Globulin Ratio 1.4; Alkaline Phosphatase 198 U/L (38-126); Anion Gap 10 mmol/L; Blood Urea Nitrogen 6 mg/dL (7-17); Calcium 8.9 mg/dL (8.4-10.2); Carbon Dioxide 29 mmol/L (22-30); Chloride 99 mmol/L (98-107); Globulin 2.5 g/dL; Glucose 114 mg/dL (74-99); Non-African American GFR(CKD) 89 (>60 ml/min/1.73 sqM); Potassium 3.8 mmol/L (3.5-5.1); Sodium 138 mmol/L (137-145); Total Bilirubin 0.4 mg/dL (0.2-1.3); Total Protein 5.9 g/dL (6.3-8.2)
[2024-05-12] MEDS: HYDROmorphone 1 MG/ML 1 ML SYRINGE IVP PRN (09:57)
--- NOTE | 2024-05-12 14:04 | P.PN ---
Subjective Progress Note Date: 05/12/24 SURGICAL PROGRESS NOTE CHIEF COMPLAINT: Right lower abdominal wall pain HISTORY OF PRESENT ILLNESS: Patient is status post aspiration of the abdominal wall fluid collection. Fluid was dark and cloudy with blood product 14 cc removed by IR service. Patient continues to complain of pain in that right lo wer quadrant. Afebrile. Heart rate 109. WBC is 5.2 Hgb 11.4 and stable. Culture growing presumptive Staph aureus PHYSICAL EXAM: VITAL SIGNS: Reviewed. GENERAL: Well-developed in no acute distress. ABDOMEN: Soft. Nondistended. Patient continues to have firmness and swelling in the right lower quadrant that is getting smaller in size. Mild bruising noted. No drainage. Tender with palpation. NEUROLOGIC: Alert and oriented. Cranial nerves II through XII grossly intact. ASSESSMENT: 1. 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 Signing provider agrees with the documented findings, assessment, and plan of care. Objective - Vital Signs Vital signs: Vital Signs Temp 97.7 F 05/12/24 07:39 Pulse 109 H 05/12/24 07:39 Resp 16 05/12/24 07:39 BP 100/69 05/12/24 07:39 Pulse Ox 99 05/12/24 07:39 FiO2 Intake & Output 05/11/24 05/12/24 05/12/24 18:59 06:59 18:59 Intake Total 666 Balance 666 Intake: Oral 666 Other: Voiding Method Toilet # Voids 3 1 - Labs CBC & Chem 7: 05/12/24 08:29 05/12/24 08:29 Labs: Abnormal Lab Results - Last 24 Hours (Table) 05/12/24 05/12/24 Range/Units 08:29 08:29 RBC 3.50 L (3.80-5.40) m/uL MCV 101.1 H (80.0-100.0) fL BUN 6 L (7-17) mg/dL Glucose 114 H (74-99) mg/dL Alkaline Phosphatase 198 H (38-126) U/L Total Protein 5.9 L (6.3-8.2) g/dL Albumin 3.4 L (3.5-5.0) g/dL Microbiology - Last 24 Hours (Table) 05/09/24 15:10 Blood Culture - Preliminary Blood 05/10/24 14:15 Gram Stain - Preliminary Peritoneal Fluid Body Fluid Culture - Preliminary Presumptive Staph aureus
--- NOTE | 2024-05-12 16:50 | P.PN ---
Subjective Progress Note Date: 05/12/24 Principal diagnosis: Abdominal hematoma Hospital Course: Patient is a 54-year-old female with past medical history of multiple umbilical hernias with surgical repairs, CAD with stent placement hypertension, hyperlipidemia, SVT, migraines, Guillain-Cárdenas syndrome, and complex PTSD who presented to the ER with chief complaint of abdominal pain. Patient states she was sitting on the sofa yesterday and sneezed and felt a pop and then the pain started. Patient denies any trauma to the area. Patient denies any recent abdominal surgeries. She does endorse esophageal dilation and cardiac ablation completed in March. She also endorses some nausea and decreased oral intake. She denies chest pain, shortness of breath, fevers, chills, vomiting or diarrhea. Subjective: Patient seen and examined at bedside. No acute events overnight. Pertinent positives and negatives discussed above, a complete review of systems was preformed and all the other systems were negative. Patient states that her belly is more tender today and that her pain is a 10 out of 10. She is also endorsing some nausea and decreased appetite. Vitals Signs Reviewed. General: non toxic, no distress, appears at stated age, normal weight Derm: no unusual rashes/lesions, warm Head: atraumatic, normocephalic, symmetric Eyes: EOMI, no lid lag, anicteric sclera, pupils equal round reactive to light ENT: Nose and ears atraumatic Neck: No cervical lymphadenopathy, trachea midline, supple Mouth: no lip lesion, mucus membranes moist Cardiovascular: S1S2 reg, no murmur, positive dorsalis pedis pulse bilateral, no edema Lungs: Decreased air entry bilaterally, no rhonchi, no rales, no accessory muscle use Abdominal: soft, non-distended, notable swelling in RLQ that is tender to palpation, mild bruising noted, no drainage Ext: muscle strength 5 out of 5 in all 4 extremities grossly, no gross muscle atrophy, no contractures, Neuro: CN II-XI grossly intact, no gross focal neuro deficits Psych: Alert, oriented, appropriate affect Data Reviewed Today: Patient Labs: WBCs 5.2, hemoglobin 11.4, MCV 101.9, platelets 311. Sodium 138, potassium 3.8, chloride 99, BUN 6, creatinine 0.77, glucose 114. AST 19, ALT 24, ALT ALP 198. Assessment and Plan: Abdominal hematoma, less likely abscess s/p IR drainage Surgery consulted ID consulted Will continue cefepime and daptomycin for now Pain control Follow-up on fluid aspirate cultures Follow-up anaerobic wound culture Mild transaminitis, downtrending Hyponatremia, hypokalemia, hypochloremia likely secondary to decreased oral intake, resolved Chronic: Hypertension Continue metoprolol 25 mg twice daily Hyperlipidemia Continue Lipitor 40 mg at bedtime CAD with stent placement Continue aspirin 81 mg p.o. at bedtime Complex PTSD Continue Cymbalta 60 mg p.o. at bedtime Continue Seroquel 300 mg p.o. at bedtime GERD Continue Protonix 40 mg daily History of macrocytic anemia Continue thiamine 100 mg daily Continue B12 1000 mcg daily F: None E: Replete as needed N: Regular diet A: As tolerated DVT prophylaxis: Lovenox 40mg subcutaneously daily The patient is admitted with an anticipated more than 2 midnight stay for evaluation of abdominal hematoma CODE STATUS: Full code Discussed with: Patient Anticipated discharge place: Pending clinical course Attestation: I have personally seen and examined the patient with Resident, reviewed the documentation and participated and agree with the assessment and plan as written. Shmuel Dow MD Objective - Vital Signs Vital signs: Vital Signs Temp 97.7 F 05/12/24 07:39 Pulse 109 H 05/12/24 07:39 Resp 16 05/12/24 07:39 BP 100/69 05/12/24 07:39 Pulse Ox 99 05/12/24 07:39 FiO2 Intake & Output 05/11/24 05/12/24 05/12/24 18:59 06:59 18:59 Intake Total 666 Balance 666 Intake: Oral 666 Other: Voiding Method Toilet # Voids 3 1 - Labs CBC & Chem 7: 05/13/24 07:20 05/13/24 07:20 Labs: Abnormal Lab Results - Last 24 Hours (Table) 05/12/24 05/12/24 Range/Units 08:29 08:29 RBC 3.50 L (3.80-5.40) m/uL MCV 101.1 H (80.0-100.0) fL BUN 6 L (7-17) mg/dL Glucose 114 H (74-99) mg/dL Alkaline Phosphatase 198 H (38-126) U/L Total Protein 5.9 L (6.3-8.2) g/dL Albumin 3.4 L (3.5-5.0) g/dL Microbiology - Last 24 Hours (Table) 05/09/24 15:10 Blood Culture - Preliminary Blood 05/10/24 14:15 Gram Stain - Preliminary Peritoneal Fluid Body Fluid Culture - Preliminary Presumptive Staph aureus
[2024-05-13 08:14] LABS: African American GFR (CKD) >90 (>60 ml/min/1.73 sqM); Anion Gap 4 mmol/L; Blood Urea Nitrogen 7 mg/dL (7-17); Calcium 8.9 mg/dL (8.4-10.2); Carbon Dioxide 30 mmol/L (22-30); Chloride 103 mmol/L (98-107); Glucose 87 mg/dL (74-99); Magnesium 1.8 mg/dL (1.6-2.3); Non-African American GFR(CKD) >90 (>60 ml/min/1.73 sqM); Potassium 4.8 mmol/L (3.5-5.1); Sodium 137 mmol/L (137-145)
[2024-05-13] MEDS: ENOXAPARIN 40 MG/0.4 ML SYRINGE SQ SCH (08:37)
[2024-05-13 08:49] LABS: Basophils % (A) 1 %; Eosinophils # (A) 0.2 k/uL (0-0.7); Eosinophils % (A) 5 %; HCT 31.4 % (34.0-46.0); HGB 10.6 gm/dL (11.4-16.0); Lymphocytes # (A) 1.4 k/uL (1.0-4.8); Lymphocytes % (A) 30 %; MCH 32.8 pg (25.0-35.0); MCHC 33.8 g/dL (31.0-37.0); MCV 96.9 fL (80.0-100.0); Mean Platelet Volume 9.7; Monocytes # (A) 0.3 k/uL (0-1.0); Monocytes % (A) 7 %; Neutrophils # (A) 2.6 k/uL (1.3-7.7); Neutrophils % (A) 56 %; Platelet Count 244 k/uL (150-450); RBC 3.24 m/uL (3.80-5.40); RDW 12.6 % (11.5-15.5); WBC 4.7 k/uL (3.8-10.6)
--- NOTE | 2024-05-13 09:04 | P.PN ---
Subjective Progress Note Date: 05/12/24 Principal diagnosis: Reason for follow-up is abdominal abscess Patient is a 54-year-old female with a past medical history significant for Hyperlipidemia, Hypertension, Seizure Disorder, Supraventricular Tachycardia presenting to the hospital for evaluation of right lower quadrant abdominal pain that apparently started the day of presentation to the hospital, patient did have a CT concerning for the right lower quadrant fluid collection concerning for possible abscess.Patient is status post ultrasound-guided drainage of the right lower quadrant completed on 05/11/2024 On today's evaluation that is 05/12/2024,the patient denies any fever or any chills, patient is breathing comfortably on room air, the patient denies chest pain shortness of breath and no significant cough, patient still complaining of pain to the right lower quadrant area but no worsening no nausea no vomiting or diarrhea. Patient white count is 4.7 creatinine 0.72 abdominal culture growing Staph aureus Objective - Vital Signs Vital signs: Vital Signs Temp 97.7 F 05/12/24 07:39 Pulse 109 H 05/12/24 07:39 Resp 16 05/12/24 07:39 BP 100/69 05/12/24 07:39 Pulse Ox 99 05/12/24 07:39 FiO2 Intake & Output 05/11/24 05/12/24 05/12/24 18:59 06:59 18:59 Intake Total 666 Balance 666 Intake: Oral 666 Other: Voiding Method Toilet # Voids 3 1 - Exam GENERAL DESCRIPTION: Middle-age female lying in bed in no distress RESPIRATORY SYSTEM: Unlabored breathing , decreased breath sounds at bases HEART: S1 S2 regular rate and rhythm , ABDOMEN: Soft , right lower quadrant swelling induration and minimal redness EXTREMITIES: No edema feet - Labs CBC & Chem 7: 05/13/24 07:20 05/13/24 07:20 Labs: Abnormal Lab Results - Last 24 Hours (Table) 05/12/24 05/12/24 Range/Units 08:29 08:29 RBC 3.50 L (3.80-5.40) m/uL MCV 101.1 H (80.0-100.0) fL BUN 6 L (7-17) mg/dL Glucose 114 H (74-99) mg/dL Alkaline Phosphatase 198 H (38-126) U/L Total Protein 5.9 L (6.3-8.2) g/dL Albumin 3.4 L (3.5-5.0) g/dL Microbiology - Last 24 Hours (Table) 05/09/24 15:10 Blood Culture - Preliminary Blood 05/10/24 14:15 Gram Stain - Preliminary Peritoneal Fluid Body Fluid Culture - Preliminary Presumptive Staph aureus Assessment and Plan (1) Allergy to multiple antibiotics Current Visit: Yes Status: Acute Code(s): Z88.1 - ALLERGY STATUS TO OTHER ANTIBIOTIC AGENTS SNOMED Code(s): 786806378 (2) Abdominal wall abscess Current Visit: Yes Status: Acute Code(s): L02.211 - CUTANEOUS ABSCESS OF ABDOMINAL WALL SNOMED Code(s): 89332688 Plan: 1patient presented to hospital with right lower quadrant abdominal pain started the day of presentation the hospital did have abnormal CT concerning for possible abscess versus hematoma as patient not running any fever and did not have a normal white count 2-patient with multiple antibiotic ALLERGIES that would limit the number of antibiotic safe to use 3-patient has been eval by general surgery IR drainage has been requested which was completed on 05/11/2024 with cultures currently growing Staph aureus with sensitivities pending 4-patient will be treated cefepime and daptomycin while waiting for the culture to finalize with the discharge antibiotics on the basis of final sensitivity and clinical response Dictation was produced using [employer] dictation software. please excuse any grammatical, word or spelling errors. Time with Patient: Less than 30
--- NOTE | 2024-05-13 11:52 | P.PN ---
Subjective Progress Note Date: 05/13/24 SURGICAL PROGRESS NOTE CHIEF COMPLAINT: Right lower abdominal wall pain HISTORY OF PRESENT ILLNESS: Patient is status post aspiration of the abdominal wall fluid collection. Fluid was dark and cloudy with blood product 14 cc removed by IR service. Patient continues to complain of pain in that right lo wer quadrant. Afebrile. WBC 4.7 Hgb 10.6 platelets 244 Culture results is MSSA PHYSICAL EXAM: VITAL SIGNS: Reviewed. GENERAL: Well-developed in no acute distress. ABDOMEN: Soft. Nondistended. Patient continues to have firmness and swelling in the right lower quadrant that is smaller in size. Mild bruising noted. No drainage. Tender with palpation. NEUROLOGIC: Alert and oriented. Cranial nerves II through XII grossly intact. ASSESSMENT: 1. Abdominal wall hematoma status post aspiration by IR service PLAN: -Antibiotics per ID service -No surgical intervention planned -Continue warm and cold compresses -Continue pain management Physician Preschool Aide note has been reviewed by physician. Signing provider agrees with the documented findings, assessment, and plan of care. Objective - Vital Signs Vital signs: Vital Signs Temp 98.1 F 05/13/24 06:58 Pulse 86 05/13/24 06:58 Resp 16 05/13/24 06:58 BP 99/65 05/13/24 06:58 Pulse Ox 98 05/13/24 06:58 FiO2 Intake & Output 05/12/24 05/13/24 05/13/24 18:59 06:59 18:59 Intake Total 442 761 221 Balance 442 761 221 Intake: Oral 442 761 221 Other: Voiding Method Toilet # Voids 1 3 - Labs CBC & Chem 7: 05/13/24 07:20 05/13/24 07:20 Labs: Abnormal Lab Results - Last 24 Hours (Table) 05/13/24 Range/Units 07:20 RBC 3.24 L (3.80-5.40) m/uL Hgb 10.6 L (11.4-16.0) gm/dL Hct 31.4 L (34.0-46.0) % Microbiology - Last 24 Hours (Table) 05/09/24 15:10 Blood Culture - Preliminary Blood 05/10/24 14:15 Anaerobic Culture - Preliminary Abdomen 05/10/24 14:15 Gram Stain - Final Peritoneal Fluid Body Fluid Culture - Final Staphylococcus aureus
--- NOTE | 2024-05-13 15:01 | P.PN ---
Subjective Progress Note Date: 05/13/24 Principal diagnosis: Reason for follow-up is abdominal abscess Patient is a 54-year-old female with a past medical history significant for Hyperlipidemia, Hypertension, Seizure Disorder, Supraventricular Tachycardia presenting to the hospital for evaluation of right lower quadrant abdominal pain that apparently started the day of presentation to the hospital, patient did have a CT concerning for the right lower quadrant fluid collection concerning for possible abscess.Patient is status post ultrasound-guided drainage of the right lower quadrant completed on 05/11/2024 On today's evaluation that is 05/13/2024,the patient remains to be afebrile, patient is on room air not requiring supplemental oxygen and denies any shortness of breath no chest pain or cough.Patient denies having any nausea or vomiting, abdominal pain slightly decreased in intensity no diarrhea. Patient white count is 4.7 creatinine 0.72 culture with MSSA Objective - Vital Signs Vital signs: Vital Signs Temp 98.1 F 05/13/24 06:58 Pulse 86 05/13/24 06:58 Resp 16 05/13/24 06:58 BP 99/65 05/13/24 06:58 Pulse Ox 98 05/13/24 06:58 FiO2 Intake & Output 05/12/24 05/13/24 05/13/24 18:59 06:59 18:59 Intake Total 442 761 221 Balance 442 761 221 Intake: Oral 442 761 221 Other: Voiding Method Toilet # Voids 1 3 - Exam GENERAL DESCRIPTION: Middle-age female lying in bed in no distress RESPIRATORY SYSTEM: Unlabored breathing , decreased breath sounds at bases HEART: S1 S2 regular rate and rhythm , ABDOMEN: Soft , right lower quadrant did have an area of induration about 2 x 3 cm with no redness is tender to touch EXTREMITIES: No edema feet - Labs CBC & Chem 7: 05/13/24 07:20 05/13/24 07:20 Labs: Abnormal Lab Results - Last 24 Hours (Table) 05/13/24 Range/Units 07:20 RBC 3.24 L (3.80-5.40) m/uL Hgb 10.6 L (11.4-16.0) gm/dL Hct 31.4 L (34.0-46.0) % Microbiology - Last 24 Hours (Table) 05/09/24 15:10 Blood Culture - Preliminary Blood 05/10/24 14:15 Anaerobic Culture - Preliminary Abdomen 05/10/24 14:15 Gram Stain - Final Peritoneal Fluid Body Fluid Culture - Final Staphylococcus aureus Assessment and Plan (1) Allergy to multiple antibiotics Current Visit: Yes Status: Acute Code(s): Z88.1 - ALLERGY STATUS TO OTHER ANTIBIOTIC AGENTS SNOMED Code(s): 435390700 (2) Abdominal wall abscess Current Visit: Yes Status: Acute Code(s): L02.211 - CUTANEOUS ABSCESS OF ABDOMINAL WALL SNOMED Code(s): 79578030 Plan: 1patient presented to hospital with right lower quadrant abdominal pain started the day of presentation the hospital did have abnormal CT concerning for possible abscess versus hematoma as patient not running any fever and did not have a normal white count 2-patient with multiple antibiotic ALLERGIES that would limit the number of antibiotic safe to use 3-patient has been eval by general surgery IR drainage has been requested which was completed on 05/11/2024 with cultures currently growing MSSA 4-patient antibiotic has been switched over to cefazolin 2 g every 8 hours still having area of induration and will benefit from a short course of IV cefazolin for about a week on discharge Dictation was produced using [employer] dictation software. please excuse any gramma tical, word or spelling errors. Time with Patient: Less than 30
--- NOTE | 2024-05-13 17:15 | P.PN ---
Subjective Progress Note Date: 05/13/24 Principal diagnosis: Abdominal hematoma Hospital Course: Patient is a 54-year-old female with past medical history of multiple umbilical hernias with surgical repairs, CAD with stent placement hypertension, hyperlipidemia, SVT, migraines, Guillain-Cárdenas syndrome, and complex PTSD who presented to the ER with chief complaint of abdominal pain. Patient states she was sitting on the sofa yesterday and sneezed and felt a pop and then the pain started. Patient denies any trauma to the area. Patient denies any recent abdominal surgeries. She does endorse esophageal dilation and cardiac ablation completed in March. She also endorses some nausea and decreased oral intake. She denies chest pain, shortness of breath, fevers, chills, vomiting or diarrhea. Subjective: Patient seen and examined at bedside. No acute events overnight. Pertinent positives and negatives discussed above, a complete review of systems was preformed and all the other systems were negative. Patient states that her belly is more tender today and that her pain is a 10 out of 10. She is also endorsing some nausea and decreased appetite. Vitals Signs Reviewed. General: non toxic, no distress, appears at stated age, normal weight Derm: no unusual rashes/lesions, warm Head: atraumatic, normocephalic, symmetric Eyes: EOMI, no lid lag, anicteric sclera, pupils equal round reactive to light ENT: Nose and ears atraumatic Neck: No cervical lymphadenopathy, trachea midline, supple Mouth: no lip lesion, mucus membranes moist Cardiovascular: S1S2 reg, no murmur, positive dorsalis pedis pulse bilateral, no edema Lungs: Decreased air entry bilaterally, no rhonchi, no rales, no accessory muscle use Abdominal: soft, non-distended, notable swelling in RLQ that is tender to palpation, mild bruising noted, no drainage Ext: muscle strength 5 out of 5 in all 4 extremities grossly, no gross muscle atrophy, no contractures, Neuro: CN II-XI grossly intact, no gross focal neuro deficits Psych: Alert, oriented, appropriate affect Data Reviewed Today: Patient Labs: WBCs 5.2, hemoglobin 11.4, MCV 101.9, platelets 311. Sodium 138, potassium 3.8, chloride 99, BUN 6, creatinine 0.77, glucose 114. AST 19, ALT 24, ALT ALP 198. Assessment and Plan: 54-year-old female with past medical history of multiple umbilical hernias with surgical repairs, CAD with stent placement hypertension, hyperlipidemia, SVT, migraines, Guillain-Cárdenas syndrome, and complex PTSD who presented to the ER with chief complaint of abdominal pain. Abdominal hematoma vs abscess abscess s/p IR drainage Surgery consulted ID consulted Antibiotic changed to Cefazolin 2gm every 8 hours Pain control Follow-up on fluid aspirate cultures Follow-up anaerobic wound culture Mild transaminitis, downtrending Hyponatremia, hypokalemia, hypochloremia likely secondary to decreased oral intake, resolved Chronic: Hypertension Continue metoprolol 25 mg twice daily Hyperlipidemia Continue Lipitor 40 mg at bedtime CAD with stent placement Continue aspirin 81 mg p.o. at bedtime Complex PTSD Continue Cymbalta 60 mg p.o. at bedtime Continue Seroquel 300 mg p.o. at bedtime GERD Continue Protonix 40 mg daily History of macrocytic anemia Continue thiamine 100 mg daily Continue B12 1000 mcg daily F: None E: Replete as needed N: Regular diet A: As tolerated DVT prophylaxis: Lovenox 40mg subcutaneously daily The patient is admitted with an anticipated more than 2 midnight stay for evaluation of abdominal hematoma CODE STATUS: Full code Discussed with: Patient Anticipated discharge place: Pending clinical course Attestation: I have personally seen and examined the patient with Resident, reviewed the documentation and participated and agree with the assessment and plan as written. Shmuel Dow MD Objective - Vital Signs Vital signs: Vital Signs Temp 98.1 F 05/13/24 06:58 Pulse 86 05/13/24 06:58 Resp 16 05/13/24 06:58 BP 99/65 05/13/24 06:58 Pulse Ox 98 05/13/24 06:58 FiO2 Intake & Output 05/12/24 05/13/24 05/13/24 18:59 06:59 18:59 Intake Total 442 761 221 Balance 442 761 221 Intake: Oral 442 761 221 Other: Voiding Method Toilet # Voids 1 3 - Labs CBC & Chem 7: 05/13/24 07:20 05/13/24 07:20 Labs: Abnormal Lab Results - Last 24 Hours (Table) 05/13/24 Range/Units 07:20 RBC 3.24 L (3.80-5.40) m/uL Hgb 10.6 L (11.4-16.0) gm/dL Hct 31.4 L (34.0-46.0) % Microbiology - Last 24 Hours (Table) 05/09/24 15:10 Blood Culture - Preliminary Blood 05/10/24 14:15 Anaerobic Culture - Preliminary Abdomen 05/10/24 14:15 Gram Stain - Final Peritoneal Fluid Body Fluid Culture - Final Staphylococcus aureus
[2024-05-14 08:34] VITALS: BP 119/73; PULSE 73; RESP 16; TEMP 98.1
--- NOTE | 2024-05-14 08:50 | P.PN ---
Progress Note - Text Progress Note Date: 05/14/24 Patient josé luis stable. Her abdominal pain is resolved. She will be most likely discharge home today.
--- NOTE | 2024-05-14 12:56 | P.PN ---
Subjective Progress Note Date: 05/14/24 Principal diagnosis: Reason for follow-up is abdominal abscess Patient is a 54-year-old female with a past medical history significant for Hyperlipidemia, Hypertension, Seizure Disorder, Supraventricular Tachycardia presenting to the hospital for evaluation of right lower quadrant abdominal pain that apparently started the day of presentation to the hospital, patient did have a CT concerning for the right lower quadrant fluid collection concerning for possible abscess.Patient is status post ultrasound-guided drainage of the right lower quadrant completed on 05/11/2024 On today's evaluation that is 05/13/2024,the patient remains to be afebrile, patient is on room air not requiring supplemental oxygen and denies any shortness of breath no chest pain or cough.Patient denies having any nausea or vomiting, right lower quadrant abdominal pain has decreased in intensity no diarrhea feeling better wants to go home. Patient did not have lab draw today abdominal culture with MSSA Objective - Vital Signs Vital signs: Vital Signs Temp 98.1 F 05/14/24 07:05 Pulse 73 05/14/24 07:05 Resp 16 05/14/24 07:05 BP 119/73 05/14/24 07:05 Pulse Ox 96 05/14/24 07:05 FiO2 Intake & Output 05/13/24 05/14/24 05/14/24 18:59 06:59 18:59 Intake Total 221 982 Balance 221 982 Intake: Oral 221 982 Other: Voiding Method Toilet # Voids 2 3 - Exam GENERAL DESCRIPTION: Middle-age female lying in bed in no distress RESPIRATORY SYSTEM: Unlabored breathing , decreased breath sounds at bases HEART: S1 S2 regular rate and rhythm , ABDOMEN: Soft , right lower quadrant did have an area of induration about 2 x 3 cm with no redness is tender to touch EXTREMITIES: No edema feet - Labs CBC & Chem 7: 05/13/24 07:20 05/13/24 07:20 Assessment and Plan (1) Allergy to multiple antibiotics Current Visit: Yes Status: Acute Code(s): Z88.1 - ALLERGY STATUS TO OTHER ANTIBIOTIC AGENTS SNOMED Code(s): 848954359 (2) Abdominal wall abscess Current Visit: Yes Status: Acute Code(s): L02.211 - CUTANEOUS ABSCESS OF ABDOMINAL WALL SNOMED Code(s): 08344787 Plan: 1patient presented to hospital with right lower quadrant abdominal pain started the day of presentation the hospital did have abnormal CT concerning for possible abscess versus hematoma as patient not running any fever and did not h ave a normal white count 2-patient with multiple antibiotic ALLERGIES that would limit the number of antibiotic safe to use 3-patient has been eval by general surgery IR drainage has been requested which was completed on 05/11/2024 with cultures currently growing MSSA 4-patient abdominal wall pain and induration has decreased and the patient wanted to go home on oral antibiotic discussed with the resident physician plan is for Keflex 500 mg p.o. every 6 hours for 10 days and close outpatient follow- up if any worsening symptoms may need to switch her to IV at that point Dictation was produced using [employer] dictation software. please excuse any grammatical, word or spelling errors. Time with Patient: Less than 30
[2024-05-14 13:34] VITALS: BMI 26.5
--- NOTE | 2024-05-14 17:11 | P.DS ---
Providers Date of admission: 05/09/24 14:19 Expected date of discharge: 05/14/24 Attending physician: Ish Zapata MD Consults: 05/09/24 13:49 Consult Physician Urgent Consulting Provider: Dean Trejo Consult Reason/Comments: Possible abdominal wall abscess Do you want consulting provider notified?: Yes Consult Physician Urgent Consulting Provider: Kathrine Infante Consult Reason/Comments: Abdominal wall abscess Do you want consulting provider notified?: Yes Primary care physician: José Reece Hospital Course: Discharge diagnoses; Abdominal hemtoma Mild transaminitis, downtrending Hypertension Hyperlipidemia CAD with stent placement Complex PTSD GERD History of macrocytic anemia Hospital course; Patient is a 54-year-old female with past medical history of multiple umbilical hernias with surgical repairs, CAD with stent placement hypertension, hyperlipidemia, SVT, migraines, Guillain-Cárdenas syndrome, and complex PTSD who presented to the ER with chief complaint of abdominal pain. Patient states she was sitting on the sofa yesterday and sneezed and felt a pop and then the pain started. Patient denies any trauma to the area. Patient denies any recent abdominal surgeries. She does endorse esophageal dilation and cardiac ablation completed in March. She also endorses some nausea and decreased oral intake. She denies chest pain, shortness of breath, fevers, chills, vomiting or diarrhea. General surgery was consulted for suspicion of possible abscess. Interventional radiology was consulted and patient underwent ultrasound-guided drainage. Infectious disease was also consulted and patient was started on IV antibiotics. Patient's clinical status continued to improve. Her abdominal pain has improved as well as the swelling. She was cleared by general surgery and infectious disease as well as medically optimized for discharge. IV antibiotics were transitioned to oral antibiotics which patient will complete 10-day course of Keflex per IDs recommendations and she will follow-up in 1 week postdischarge. Patient is also to follow-up with her PCP in 1 to 2 days. Physical exam: General: non toxic, no distress, appears at stated age, normal weight Derm: no unusual rashes/lesions, warm Head: atraumatic, normocephalic, symmetric Eyes: EOMI, no lid lag, anicteric sclera, pupils equal round reactive to light ENT: Nose and ears atraumatic Neck: No cervical lymphadenopathy, trachea midline, supple Mouth: no lip lesion, mucus membranes moist Cardiovascular: S1S2 reg, no murmur, positive dorsalis pedis pulse bilateral, no edema Lungs: Decreased air entry bilaterally, no rhonchi, no rales, no accessory muscle use Abdominal: soft, non-distended, notable swelling in RLQ that is tender to palpation improving, no drainage Ext: muscle strength 5 out of 5 in all 4 extremities grossly, no gross muscle atrophy, no contractures, Neuro: CN II-XI grossly intact, no gross focal neuro deficits Psych: Alert, oriented, appropriate affect Dictation was produced using [employer] dictation software. please excuse any grammatical, word or spelling errors. Attestation: I have personally seen and examined the patient with Resident, reviewed the documentation and participated and agree with the assessment and plan as written. Shmuel Dow MD Patient Condition at Discharge: Good Plan - Discharge Summary Discharge Rx Participant: No New Discharge Prescriptions: New Cephalexin [Keflex] 500 mg PO Q6HR 10 Days #40 cap Continue Thiamine [Vitamin B-1] 100 mg PO DAILY Atorvastatin [Lipitor] 40 mg PO HS HYDROcodone/APAP 10-325MG [[place] 10-325] 1 tab PO TID Cyclobenzaprine [Flexeril] 10 mg PO TID PRN PRN Reason: Pain Atogepant [Qulipta] 60 mg PO HS Aspirin 81 mg PO HS Zavegepant HCl [Zavzpret] 1 spray NASAL DAILY PRN PRN Reason: Migraine Headache Potassium Chloride ER [K-Dur 10] 10 meq PO BID Dicyclomine [Bentyl] 10 mg PO QID 7 Days #28 cap Metoprolol Tartrate 25 mg PO BID #90 tab Omeprazole [PriLOSEC] 20 mg PO HS DULoxetine HCL [Cymbalta] 60 mg PO HS Cyanocobalamin (Vitamin B-12) [Vitamin B-12] 1,000 mcg PO DAILY Multivitamins, Thera [Multivitamin (formulary)] 1 tab PO HS QUEtiapine FUMARATE [SEROquel] 300 mg PO HS Discharge Medication List Omeprazole [PriLOSEC] 20 mg PO HS 12/15/20 [History] Thiamine [Vitamin B-1] 100 mg PO DAILY 01/04/21 [History] Atorvastatin [Lipitor] 40 mg PO HS 07/20/21 [History] DULoxetine HCL [Cymbalta] 60 mg PO HS 07/20/21 [History] Atogepant [Qulipta] 60 mg PO HS 06/03/22 [History] Cyclobenzaprine [Flexeril] 10 mg PO TID PRN 06/03/22 [History] HYDROcodone/APAP 10-325MG [[place] 10-325] 1 tab PO TID 06/03/22 [History] Aspirin 81 mg PO HS 08/29/22 [History] Cyanocobalamin (Vitamin B-12) [Vitamin B-12] 1,000 mcg PO DAILY 09/07/23 [History] Multivitamins, Thera [Multivitamin (formulary)] 1 tab PO HS 09/07/23 [History] Zavegepant HCl [Zavzpret] 1 spray NASAL DAILY PRN 09/07/23 [History] Potassium Chloride ER [K-Dur 10] 10 meq PO BID 12/10/23 [History] QUEtiapine FUMARATE [SEROquel] 300 mg PO HS 01/10/24 [History] Dicyclomine [Bentyl] 10 mg PO QID 7 Days #28 cap 03/12/24 [Rx] Metoprolol Tartrate 25 mg PO BID #90 tab 03/16/24 [Rx] Cephalexin [Keflex] 500 mg PO Q6HR 10 Days #40 cap 05/14/24 [Rx] Follow up Appointment(s)/Referral(s): José Reece MD [Primary Care Provider] - 1-2 days Kathrine Infante MD [STAFF PHYSICIAN] - 1 Week Discharge Disposition: HOME SELF-CARE
== END 2024-05-14 16:03 | disposition home or self-care (01) | DRG 383 ==
LOC: EC 10:14 → 6NMEDSUR 14:18 → OBSVTOIN 14:19 → 6NMEDSUR 16:34
PROVIDERS: ADMIT Internal Medicine; ATTEND Internal Medicine
PROC: 0W9F3ZX Drainage of Abdominal Wall, Percutaneous Approach, Diagnostic (ICD-10-PCS; principal; 2024-05-11)
DX: L02.211 Cutaneous abscess of abdominal wall (principal); I47.10 Supraventricular tachycardia, unspecified; E87.1 Hypo-osmolality and hyponatremia; D53.9 Nutritional anemia, unspecified; I10 Essential (primary) hypertension; B95.61 Methicillin susceptible Staphylococcus aureus infection as the cause of diseases classified elsewhere; S30.1XXA Contusion of abdominal wall, initial encounter; E78.5 Hyperlipidemia, unspecified; E87.8 Other disorders of electrolyte and fluid balance, not elsewhere classified; E87.6 Hypokalemia; R74.01 Elevation of levels of liver transaminase levels; K21.9 Gastro-esophageal reflux disease without esophagitis; F43.10 Post-traumatic stress disorder, unspecified; I25.10 Atherosclerotic heart disease of native coronary artery without angina pectoris; Z53.8 Procedure and treatment not carried out for other reasons; Z79.82 Long term (current) use of aspirin; Z79.890 Hormone replacement therapy; Z95.5 Presence of coronary angioplasty implant and graft; Z87.891 Personal history of nicotine dependence; Z79.899 Other long term (current) drug therapy; Z88.1 Allergy status to other antibiotic agents; Z91.040 Latex allergy status; Z88.0 Allergy status to penicillin
CPT/HCPCS: 10030; 36415; 74177; 76536; 76942; 80048; 80053; 83605; 83735; 85025; 85610; 85730; 87040; 87070; 87075; 87077; 87186; 87205; 96365; 96366; 96367; 96368; 96375; 96376; 99285

== ENCOUNTER 2024-05-31 17:12 | Emergency (ER) | payer OTHER ==
[2024-05-31 17:35] VITALS: TEMP 99
--- NOTE | 2024-05-31 18:33 | ED ---
Headache HPI - General Chief Complaint: Headache Stated Complaint: headache Time Seen by Provider: 05/31/24 17:47 Source: RN notes reviewed, old records reviewed Mode of arrival: ambulatory Limitations: no limitations - History of Present Illness Initial Comments: This is a 54-year-old female to the ER today. She presents today for evaluation regards to headache. History of headache migraine headaches multiple factorial headaches and this is exacerbation of prior. Patient states his symptoms started 2 days ago been persistent and worsening with nausea and vomiting unable to take pain medication or symptom management medications at home. No trauma no fevers no neurological complaints. MD Complaint: headache, "migraine" -: days(s) (3) Onset Description: sudden Location: right, left, frontal, temporal Severity: severe Severity scale (1-10): 10 Quality: throbbing Consistency: constant Improves With: nothing Worsens With: none Associated Symptoms: nausea, vomiting Other Symptoms: other Treatments Prior to Arrival: none - Related Data Home Medications Medication Instructions Recorded Confirmed Omeprazole [PriLOSEC] 20 mg PO HS 12/15/20 05/09/24 Thiamine [Vitamin B-1] 100 mg PO DAILY 01/04/21 05/09/24 Atorvastatin [Lipitor] 40 mg PO HS 07/20/21 05/09/24 DULoxetine HCL [Cymbalta] 60 mg PO HS 07/20/21 05/09/24 Atogepant [Qulipta] 60 mg PO HS 06/03/22 05/09/24 Cyclobenzaprine [Flexeril] 10 mg PO TID PRN 06/03/22 05/09/24 HYDROcodone/APAP 10-325MG [[place] 1 tab PO TID 06/03/22 05/09/24 10-325] Aspirin 81 mg PO HS 08/29/22 05/09/24 Cyanocobalamin (Vitamin B-12) 1,000 mcg PO DAILY 09/07/23 05/09/24 [Vitamin B-12] Multivitamins, Thera [Multivitamin 1 tab PO HS 09/07/23 05/09/24 (formulary)] Zavegepant HCl [Zavzpret] 1 spray NASAL DAILY PRN 09/07/23 05/09/24 Potassium Chloride ER [K-Dur 10] 10 meq PO BID 12/10/23 05/09/24 QUEtiapine FUMARATE [SEROquel] 300 mg PO HS 01/10/24 05/09/24 Previous Rx's Medication Instructions Recorded Dicyclomine [Bentyl] 10 mg PO QID 7 Days #28 cap 03/12/24 Metoprolol Tartrate 25 mg PO BID #90 tab 03/16/24 Cephalexin [Keflex] 500 mg PO Q6HR 10 Days #40 cap 05/14/24 Allergies Allergy/AdvReac Type Severity Reaction Status Date / Time dihydroergotamine Allergy Unknown Unknown Verified 05/09/24 14:27 [From Migranal] buprenorphine Allergy Rash/Hives Verified 05/09/24 14:27 gabapentin [From Neurontin] Allergy Itching/Swe Verified 05/09/24 14:27 lling latex Allergy Anaphylaxis Verified 05/09/24 14:27 naproxen [From Naprosyn] Allergy Anaphylaxis Verified 05/09/24 14:27 Penicillins Allergy Anaphylaxis Verified 05/09/24 14:27 quetiapine fumarate Allergy Itching, Verified 05/09/24 14:27 [From Seroquel] leg cramps rofecoxib [From Vioxx] Allergy Itching, Verified 05/09/24 14:27 leg cramps terfenadine [From Seldane] Allergy Rash/Hives Verified 05/09/24 14:27 vancomycin Allergy Rash/Hives/Swelling Verified 05/09/24 14:27 @IV site calcium carbonate [From DHEA] AdvReac Chest Pain Verified 05/09/24 14:27 calcium phosphate,dibasic AdvReac Chest Pain Verified 05/09/24 14:27 [From DHEA] clindamycin AdvReac muscle Verified 05/09/24 14:27 cramps clonidine AdvReac fast Verified 05/09/24 14:27 heartbeat, migraine dextromethorphan HBr AdvReac face/neck Verified 05/09/24 14:27 [From NyQuil] flushing diazepam [From Valium] AdvReac Nausea & Verified 05/09/24 14:27 Vomiting divalproex sodium AdvReac Nausea & Verified 05/09/24 14:27 [From Depakote] Vomiting doxylamine [From NyQuil] AdvReac face "beet Verified 05/09/24 14:27 red", elevated temp. ibuprofen [From Motrin] AdvReac abdominal Verified 05/09/24 14:27 & muscle cramps indomethacin [From Indocin] AdvReac Abdominal Verified 05/09/24 14:27 Pain,N/V ketorolac tromethamine AdvReac "built up Verified 05/09/24 14:27 [From Toradol] in system", had to be given something to reverse lorazepam [From Ativan] AdvReac Nausea & Verified 05/09/24 14:27 Vomiting memantine [From Namenda] AdvReac Itching Verified 05/09/24 14:27 metoclopramide HCl AdvReac muscle Verified 05/09/24 14:27 [From Reglan] cramps nortriptyline [From Pamelor] AdvReac Chest Pain Verified 05/09/24 14:27 prasterone (DHEA) [From DHEA] AdvReac Chest Pain Verified 05/09/24 14:27 prochlorperazine AdvReac leg Verified 05/09/24 14:27 [From Compazine] cramping propranolol AdvReac Chest Pain Verified 05/09/24 14:27 pseudoephedrine HCl AdvReac face "beet Verified 05/09/24 14:27 [From NyQuil] red", elevated temp. quetiapine [From Seroquel] AdvReac leg Verified 05/09/24 14:27 cramping sumatriptan [From Imitrex] AdvReac migrane Verified 05/09/24 14:27 sumatriptan succinate AdvReac migrane Verified 05/09/24 14:27 [From Imitrex] topiramate [From Topamax] AdvReac "built up Verified 05/09/24 14:27 in system", had to be given something to reverse tramadol AdvReac Nausea & Verified 05/09/24 14:27 Vomiting/LEG CRAMPS/HEART FLUTTERS trazodone AdvReac "built up Verified 05/09/24 14:27 in system", had to be given something to reverse zolpidem tartrate AdvReac "Became Verified 05/09/24 14:27 [From Ambien] violent with no memory" zonisamide [From Zonegran] AdvReac inability Verified 05/09/24 14:27 to eat steroids Allergy Swelling Uncoded 05/09/24 10:18 artificial sweetener AdvReac SEVERE Uncoded 05/09/24 10:18 MIGRAINE HEADACHE prosyn AdvReac Itching Uncoded 05/09/24 10:18 Review of Systems ROS Statement: Those systems with pertinent positive or pertinent negative responses have been documented in the HPI. ROS Other: All systems not noted in ROS Statement are negative. Past Medical History Past Medical History: Hyperlipidemia, Hypertension, Seizure Disorder, Supraventricular Tachycardia (SVT) Additional Past Medical History / Comment(s): Migraines, viral meningitis x3 as a child, 1995, 2000, chronic back pain, nerve blocks (neck and occipital nerve) 08/2016 and 12/2016. Last seizure 10/10/2020, "ABSENT SEIZURES. HX TACHYCARDIA, Complex PTSD. gillean barre History of Any Multi-Drug Resistant Organisms: None Reported Past Surgical History: Appendectomy, Section, Cholecystectomy, Heart Catheterization, Heart Catheterization With Stent, Hernia Repair, Hysterectomy, Orthopedic Surgery, Tonsillectomy, Tubal Ligation Additional Past Surgical History / Comment(s): Hiatal Hernia, umbilical hernia repair, left rotator cuff repair, bilateral knee scopes, pain clinic procedures- occipital nerve block. abd exploratory sx(endometreosis), 3 abd scopes 1981, 1989, 1991), lumbar puncture. EGD. nerve biopsy, salvalry gland biospy, Port (Right side 2018, left side 2020), Esophogeal dilation(2023) Past Anesthesia/Blood Transfusion Reactions: No Reported Reaction Additional Past Anesthesia/Blood Transfusion Reaction / Comment(s): Claustrophobic Date of Last Stent Placement:: 06/03/2022 Past Psychological History: Anxiety, Bipolar, Panic Disorder, PTSD Smoking Status: Former smoker Past Alcohol Use History: None Reported Past Drug Use History: None Reported - Past Family History Mother Family Medical History: Cancer, Dementia, Diabetes Mellitus, GERD/Reflux, Hyperlipidemia, Hypertension, Thyroid Disorder, Vascular Disorder Additional Family Medical History / Comment(s): CABG x2, stents Father History Unknown: Yes Family Medical History: No Reported History General Exam Limitations: no limitations General appearance: alert, in no apparent distress Head exam: Present: atraumatic, normocephalic, normal inspection Eye exam: Present: normal appearance, PERRL, EOMI. Absent: scleral icterus, conjunctival injection, periorbital swelling ENT exam: Present: normal exam, mucous membranes moist Neck exam: Present: normal inspection. Absent: tenderness, meningismus, lymphadenopathy Respiratory exam: Present: normal lung sounds bilaterally. Absent: respiratory distress, wheezes, rales, rhonchi, stridor Cardiovascular Exam: Present: normal rhythm, tachycardia, normal heart sounds. Absent: systolic murmur, diastolic murmur, rubs, gallop, clicks GI/Abdominal exam: Present: soft, normal bowel sounds. Absent: distended, tenderness, guarding, rebound, rigid Extremities exam: Present: normal inspection, full ROM, normal capillary refill. Absent: tenderness, pedal edema, joint swelling, calf tenderness Back exam: Present: normal inspection Neurological exam: Present: alert, oriented X3, CN II-XII intact Psychiatric exam: Present: normal affect, normal mood Skin exam: Present: warm, dry, intact, normal color. Absent: rash Course Vital Signs 05/31/24 17:33 Temperature 99 F Pulse Rate 114 H Respiratory 20 Rate Blood Pressure 193/129 O2 Sat by Pulse 97 Oximetry - Reevaluation(s) Reevaluation #1: 05/31/24 18:56 Medical records reviewed Recent ER and patient evaluation as well as inpatient hospitalization for infected abscess, patient currently has stopped medical medications and antibiotics Reevaluation #2: 05/31/24 18:56 Patient's pain is controlled here in the ER Patient is able to ambulate, headache resolved, no nausea or vomiting blood pressure is improved Reevaluation #3: 05/31/24 18:56 Patient informed of results questions answered Reevaluation #4: Was pt. sent in by a medical professional or institution (, PA, BAND SAW OPERATOR CAKE CUTTING, urgent care, hospital, or fdc...) When possible be specific @ -no Did you speak to anyone other than the patient for history (EMS, parent, family, police, friend...)? What history was obtained from this source @ -no Did you review nursing and triage notes (agree or disagree)? Why? @ -agree Are old charts reviewed (outside hosp., previous admission, EMS record, old EKG, old radiological studies, urgent care reports/EKG's, fdc records)? Report findings @ -yes Differential Diagnosis (chest pain, altered mental status, abdominal pain women, abdominal pain men, vaginal bleeding, weakness, fever, dyspnea, syncope, headache, dizziness, GI bleed, back pain, seizure, CVA, palpatations, mental health, musculoskeletal)? @ -prior EKG interpreted by me (3pts min.). @ -yes X-rays interpreted by me (1pt min.). @ -yes negative for acute disease CT interpreted by me (1pt min.). @ -no U/S interpreted by me (1pt. min.). @ -no What testing was considered but not performed or refused? (CT, X-rays, U/S, labs)? Why? @ -none What meds were considered but not given or refused? Why? @ -none Did you discuss the management of the patient with other professionals (professionals i.e. , PA, BAND SAW OPERATOR [employer] C[employer]TING, lab, RT, psych nurse, social worker delinquency prevention, director corporate, teacher, corporate compliance officer, rn case management)? Give summary @ -no Was smoking cessation discussed for >3mins.? @ -no Was critical care preformed (if so, how long)? @ -no Were there social determinants of health that impacted care today? How? (Homelessness, low income, unemployed, alcoholism, drug addiction, transportation, low edu. Level, literacy, decrease access to med. care, fci, rehab)? @ -none Was there de-escalation of care discussed even if they declined (Discuss DNR or withdrawal of care, Hospice)? DNR status @ -no What co-morbidities impacted this encounter? (DM, HTN, Smoking, COPD, CAD, Cancer, CVA, ARF, Chemo, Hep., AIDS, mental health diagnosis, sleep apnea, morb id obesity)? @ -none Was patient admitted / discharged? Hospital course, mention meds given and route, prescriptions, significant lab abnormalities, going to OR and other pertinent info. @ - Undiagnosed new problem with uncertain prognosis? @ -no Drug Therapy requiring intensive monitoring for toxicity (Heparin, Nitro, Insulin, Cardizem)? @ -no Were any procedures done? @ -no Diagnosis/symptom? @ - Acute, or Chronic, or Acute on Chronic? @ -Acute Uncomplicated (without systemic symptoms) or Complicated (systemic symptoms)? @ -Complicated Side effects of treatment? @ -no Exacerbation, Progression, or Severe Exacerbation? @ -exacerbation Poses a threat to life or bodily function? How? (Chest pain, [place], [place], pneumonia, PE, COPD, DKA, ARF, appy, cholecystitis, CVA, Diverticulitis, Homicidal, Suicidal, threat to staff... and all critical care pts) @ -yes Reevaluation #5: Differential Headache: Migraine, tension, cluster, carbon monoxide, central venous thrombosis, pension karma temporal arteritis, acute closure glaucoma, intercranial hemorrhage, mastoiditis, sinusitis, head injury, this is not meant to be an all-inclusive list. Medical Decision Making - Medical Decision Making 54 female to the ER for evaluation of acute on chronic headache and migraine blood pressure was elevated on initial evaluation although improved prior to discharge. Headache resolved and patient can be discharged Disposition Clinical Impression: Tension headache, Headache, Migraine Disposition: HOME SELF-CARE Condition: Fair Instructions (If sedation given, give patient instructions): Acute Headache (ED) Is patient prescribed a controlled substance at d/c from ED?: No Referrals: José Reece MD [Primary Care Provider] - 1-2 days Time of Disposition: 18:45
[2024-05-31] MEDS: HYDROmorphone 1 MG/ML 1 ML SYRINGE IM STA (18:53)
[2024-05-31] MEDS: droPERidol 5 MG/2 ML VIAL IM ONE (18:54)
[2024-05-31] MEDS: diphenhydrAMINE 50 MG CAP PO STA (18:54)
[2024-05-31 19:07] VITALS: BP 174/102; PULSE 96; RESP 18
== END 2024-05-31 19:07 | disposition home or self-care (01) ==
LOC: EC 17:12
DX: G43.909 Migraine, unspecified, not intractable, without status migrainosus (principal); G44.209 Tension-type headache, unspecified, not intractable; Z87.891 Personal history of nicotine dependence; Z88.0 Allergy status to penicillin; Z91.040 Latex allergy status; Z88.1 Allergy status to other antibiotic agents; Z88.5 Allergy status to narcotic agent; Z88.8 Allergy status to other drugs, medicaments and biological substances; Z88.6 Allergy status to analgesic agent; Z88.9 Allergy status to unspecified drugs, medicaments and biological substances
CPT/HCPCS: 99283; 96372 ×2; J1171; J1790

== ENCOUNTER 2024-07-11 12:28 | Emergency (ER) | payer OTHER ==
[2024-07-11 12:38] VITALS: TEMP 98
--- NOTE | 2024-07-11 12:48 | ED ---
General Adult HPI - General Chief complaint: Abdominal Pain Stated complaint: R flank pain Time Seen by Provider: 07/11/24 12:46 Source: patient Mode of arrival: ambulatory Limitations: no limitations - History of Present Illness Initial comments: Patient presents to the ED complaining of having sudden onset right low back/flank pain and diarrhea since last night. Patient also states that she has felt nauseated. Patient denies vomiting. Patient denies any known trauma or injury, fever or chills, headache, focal numbness/weakness/neuro deficit, chest pain or pressure, dyspnea, cough or cold symptoms, palpitations, abdominal pain, bloody or melanotic stool, dysuria/hematuria/urinary frequency/urinary symptoms, incontinence or urinary retention, leg pain, or any other symptoms or complaints. Patient states that she takes [place] daily, but she did not take her dose today because she did not want her drug screen to be positive. - Related Data Home Medications Medication Instructions Recorded Confirmed Omeprazole [PriLOSEC] 20 mg PO HS 12/15/20 05/09/24 Thiamine [Vitamin B-1] 100 mg PO DAILY 01/04/21 05/09/24 Atorvastatin [Lipitor] 40 mg PO HS 07/20/21 05/09/24 DULoxetine HCL [Cymbalta] 60 mg PO HS 07/20/21 05/09/24 Atogepant [Qulipta] 60 mg PO HS 06/03/22 05/09/24 Cyclobenzaprine [Flexeril] 10 mg PO TID PRN 06/03/22 05/09/24 HYDROcodone/APAP 10-325MG [[place] 1 tab PO TID 06/03/22 05/09/24 10-325] Aspirin 81 mg PO HS 08/29/22 05/09/24 Cyanocobalamin (Vitamin B-12) 1,000 mcg PO DAILY 09/07/23 05/09/24 [Vitamin B-12] Multivitamins, Thera [Multivitamin 1 tab PO HS 09/07/23 05/09/24 (formulary)] Zavegepant HCl [Zavzpret] 1 spray NASAL DAILY PRN 09/07/23 05/09/24 Potassium Chloride ER [K-Dur 10] 10 meq PO BID 12/10/23 05/09/24 QUEtiapine FUMARATE [SEROquel] 300 mg PO HS 01/10/24 05/09/24 Previous Rx's Medication Instructions Recorded Dicyclomine [Bentyl] 10 mg PO QID 7 Days #28 cap 03/12/24 Metoprolol Tartrate 25 mg PO BID #90 tab 03/16/24 Cephalexin [Keflex] 500 mg PO Q6HR 10 Days #40 cap 05/14/24 Allergies Allergy/AdvReac Type Severity Reaction Status Date / Time dihydroergotamine Allergy Unknown Unknown Verified 07/11/24 12:38 [From Migranal] buprenorphine Allergy Rash/Hives Verified 07/11/24 12:38 gabapentin [From Neurontin] Allergy Itching/Swe Verified 07/11/24 12:38 lling latex Allergy Anaphylaxis Verified 07/11/24 12:38 naproxen [From Naprosyn] Allergy Anaphylaxis Verified 07/11/24 12:38 Penicillins Allergy Anaphylaxis Verified 07/11/24 12:38 quetiapine fumarate Allergy Itching, Verified 07/11/24 12:38 [From Seroquel] leg cramps rofecoxib [From Vioxx] Allergy Itching, Verified 07/11/24 12:38 leg cramps terfenadine [From Seldane] Allergy Rash/Hives Verified 07/11/24 12:38 vancomycin Allergy Rash/Hives/Swelling Verified 07/11/24 12:38 @IV site calcium carbonate [From DHEA] AdvReac Chest Pain Verified 07/11/24 12:38 calcium phosphate,dibasic AdvReac Chest Pain Verified 07/11/24 12:38 [From DHEA] clindamycin AdvReac muscle Verified 07/11/24 12:38 cramps clonidine AdvReac fast Verified 07/11/24 12:38 heartbeat, migraine dextromethorphan HBr AdvReac face/neck Verified 07/11/24 12:38 [From NyQuil] flushing diazepam [From Valium] AdvReac Nausea & Verified 07/11/24 12:38 Vomiting divalproex sodium AdvReac Nausea & Verified 07/11/24 12:38 [From Depakote] Vomiting doxylamine [From NyQuil] AdvReac face "beet Verified 07/11/24 12:38 red", elevated temp. ibuprofen [From Motrin] AdvReac abdominal Verified 07/11/24 12:38 & muscle cramps indomethacin [From Indocin] AdvReac Abdominal Verified 07/11/24 12:38 Pain,N/V ketorolac tromethamine AdvReac "built up Verified 07/11/24 12:38 [From Toradol] in system", had to be given something to reverse lorazepam [From Ativan] AdvReac Nausea & Verified 07/11/24 12:38 Vomiting memantine [From Namenda] AdvReac Itching Verified 07/11/24 12:38 metoclopramide HCl AdvReac muscle Verified 07/11/24 12:38 [From Reglan] cramps nortriptyline [From Pamelor] AdvReac Chest Pain Verified 07/11/24 12:38 prasterone (DHEA) [From DHEA] AdvReac Chest Pain Verified 07/11/24 12:38 prochlorperazine AdvReac leg Verified 07/11/24 12:38 [From Compazine] cramping propranolol AdvReac Chest Pain Verified 07/11/24 12:38 pseudoephedrine HCl AdvReac face "beet Verified 07/11/24 12:38 [From NyQuil] red", elevated temp. quetiapine [From Seroquel] AdvReac leg Verified 07/11/24 12:38 cramping sumatriptan [From Imitrex] AdvReac migrane Verified 07/11/24 12:38 sumatriptan succinate AdvReac migrane Verified 07/11/24 12:38 [From Imitrex] topiramate [From Topamax] AdvReac "built up Verified 07/11/24 12:38 in system", had to be given something to reverse tramadol AdvReac Nausea & Verified 07/11/24 12:38 Vomiting/LEG CRAMPS/HEART FLUTTERS trazodone AdvReac "built up Verified 07/11/24 12:38 in system", had to be given something to reverse zolpidem tartrate AdvReac "Became Verified 07/11/24 12:38 [From Ambien] violent with no memory" zonisamide [From Zonegran] AdvReac inability Verified 07/11/24 12:38 to eat steroids Allergy Swelling Uncoded 07/11/24 12:38 artificial sweetener AdvReac SEVERE Uncoded 07/11/24 12:38 MIGRAINE HEADACHE prosyn AdvReac Itching Uncoded 07/11/24 12:38 Review of Systems ROS Statement: Those systems with pertinent positive or pertinent negative responses have been documented in the HPI. ROS Other: All systems not noted in ROS Statement are negative. Past Medical History Past Medical History: Hyperlipidemia, Hypertension, Seizure Disorder, Supraventricular Tachycardia (SVT) Additional Past Medical History / Comment(s): Migraines, viral meningitis x3 as a child, 1995, 2000, chronic back pain, nerve blocks (neck and occipital nerve) 08/2016 and 12/2016. Last seizure 10/10/2020, "ABSENT SEIZURES. HX TACHYCARDIA, Complex PTSD. gillean barre History of Any Multi-Drug Resistant Organisms: None Reported Past Surgical History: Appendectomy, Section, Cholecystectomy, Heart Catheterization, Heart Catheterization With Stent, Hernia Repair, Hysterectomy, Orthopedic Surgery, Tonsillectomy, Tubal Ligation Additional Past Surgical History / Comment(s): Hiatal Hernia, umbilical hernia repair, left rotator cuff repair, bilateral knee scopes, pain clinic procedures-occipital nerve block. abd exploratory sx(endometreosis), 3 abd scopes 1981, 1989, 1991), lumbar puncture. EGD. nerve biopsy, salvalry gland biospy, Port (Right side 2018, left side 2020), Esophogeal dilation(2023) Past Anesthesia/Blood Transfusion Reactions: No Reported Reaction Additional Past Anesthesia/Blood Transfusion Reaction / Comment(s): Cla ustrophobic Date of Last Stent Placement:: 06/03/2022 Past Psychological History: Anxiety, Bipolar, Panic Disorder, PTSD Smoking Status: Former smoker Past Alcohol Use History: None Reported Past Drug Use History: None Reported - Past Family History Mother Family Medical History: Cancer, Dementia, Diabetes Mellitus, GERD/Reflux, Hyperlipidemia, Hypertension, Thyroid Disorder, Vascular Disorder Additional Family Medical History / Comment(s): CABG x2, stents Father History Unknown: Yes Family Medical History: No Reported History General Exam Limitations: no limitations General appearance: alert Head exam: Present: atraumatic Eye exam: Present: normal appearance ENT exam: Present: mucous membranes moist Respiratory exam: Present: normal lung sounds bilaterally. Absent: respiratory distress, wheezes, rales, rhonchi, stridor Cardiovascular Exam: Present: normal rhythm, tachycardia, normal heart sounds, other (Normal radial pulses bilaterally) GI/Abdominal exam: Present: soft. Absent: distended, tenderness, guarding Extremities exam: Present: full ROM. Absent: tenderness, pedal edema Back exam: Present: normal inspection, full ROM. Absent: tenderness, CVA te nderness (R), CVA tenderness (L) Neurological exam: Present: alert, oriented X3, other (No evidence of lower extremity neurological deficit or saddle anesthesia on exam). Absent: motor sensory deficit Skin exam: Present: warm, dry, normal color Course Vital Signs 07/11/24 07/11/24 12:35 14:51 Temperature 98.0 F Pulse Rate 136 H 96 Respiratory 22 18 Rate Blood Pressure 140/92 168/101 O2 Sat by Pulse 99 95 Oximetry - Reevaluation(s) Reevaluation #1: 07/11/24 14:56 Patient reports that her pain has improved with the IV morphine that she was given in ED. Patient's tachycardia has now resolved. Patient's abdomen remains soft and completely nontender on exam. Patient is aware of her test results, and she feels comfortable being discharged home at this time. She was counseled about back pain, nausea and diarrhea. She was clearly explained return and follow-up instructions, and she was instructed to follow-up closely with her [facility] care provider. She was also instructed to drink plenty of clear liquids to stay hydrated. She feels comfortable with this plan. EKG Findings - EKG Comments: EKG Findings:: ED physician interpretation (interpreted by me): Normal sinus rhythm, ventricular rate of 83 bpm, no ectopy, normal NE and QRS intervals, normal QT interval, normal axis, no ST or T wave abnormality Medical Decision Making - Medical Decision Making Was pt. sent in by a medical professional or institution (, PA, [employer], urgent care, hospital, or fpc...) When possible be specific @ -No Did you speak to anyone other than the patient for history (EMS, parent, family, police, friend...)? What history was obtained from this source @ -No Did you review nursing and triage notes (agree or disagree)? Why? @ -I reviewed and agree with nursing and triage notes Were old charts reviewed (outside hosp., previous admission, EMS record, old EKG, old radiological studies, urgent care reports/EKG's, fpc records)? Report findings @ -No old charts were reviewed Differential Diagnosis (chest pain, altered mental status, abdominal pain women, abdominal pain men, vaginal bleeding, weakness, fever, dyspnea, syncope, headache, dizziness, GI bleed, back pain, seizure, CVA, palpatations, mental health, musculoskeletal)? @ -Back pain, flank pain, DDD, DJD, strain, sprain, herniated disc disease, nausea, diarrhea, colitis, enteritis, IBS, inflammatory bowel disease, viral illness, food toxicity, dehydration, dysrhythmia, electrolyte abnormality, medication reaction, medication withdrawal, this is not meant to be a complete list. EKG interpreted by me (3pts min.). @ -As above X-rays interpreted by me (1pt min.). @ -None done CT interpreted by me (1pt min.). @ -Noncontrast CT abdomen/pelvis was reviewed myself and shows no definite acute abnormality to explain the patient's symptoms. I agree with the radiologist's interpretation as above. U/S interpreted by me (1pt. min.). @ -None done What testing was considered but not performed or refused? (CT, X-rays, U/S, labs)? Why? @ -None What meds were considered but not given or refused? Why? @ -None Did you discuss the management of the patient with other professionals (professionals i.e. , PA, [employer], lab, RT, psych nurse, child welfare social worker, experimental machining lab manager, teacher, evp chief exploration officer, case coordinator)? Give summary @ -No Was smoking cessation discussed for >3mins.? @ -No Was critical care preformed (if so, how long)? @ -No Were there social determinants of health that impacted care today? How? (Homelessness, low income, unemployed, alcoholism, drug addiction, transportation, low edu. Level, literacy, decrease access to med. care, prison, rehab)? @ -No Was there de-escalation of care discussed even if they declined (Discuss DNR or withdrawal of care, Hospice)? DNR status @ -No What co-morbidities impacted this encounter? (DM, HTN, Smoking, COPD, CAD, Cancer, CVA, ARF, Chemo, Hep., AIDS, mental health diagnosis, sleep apnea, morbid obesity)? @ -None Was patient admitted / discharged? Hospital course, mention meds given and route, prescriptions, significant lab abnormalities, going to OR and other pertinent info. @ -Patient reports improvement in her symptoms with ED treatment. Patient has not had any diarrhea or vomiting while in the ED. Patient has a soft and nontender abdominal exam. Patient's labs are fairly unremarkable. Patient's noncontrast CT abdomen/pelvis is also fairly unremarkable. I do not suspect an emergent medical or surgical condition at this time. Will discharge patient home at this time. Patient feels comfortable with this plan. Undiagnosed new problem with uncertain prognosis? @ -No Drug Therapy requiring intensive monitoring for toxicity (Heparin, Nitro, Insulin, Cardizem)? @ -No Were any procedures done? @ -No Diagnosis/symptom? @ -Low back pain, nausea, diarrhea Acute, or Chronic, or Acute on Chronic? @ -Acute Uncomplicated (without systemic symptoms) or Complicated (systemic symptoms)? @ -Default Side effects of treatment? @ -No Exacerbation, Progression, or Severe Exacerbation? @ -No Poses a threat to life or bodily function? How? (Chest pain, USA, NC, pneumonia, PE, COPD, DKA, ARF, appy, cholecystitis, CVA, Diverticulitis, Homicidal, Suicidal, threat to staff... and all critical care pts) @ -No - Lab Data Result diagrams: 07/11/24 13:17 07/11/24 13:17 Lab Results 07/11/24 07/11/24 07/11/24 Range/Units 13:17 13:17 13:52 WBC 6.0 (3.8-10.6) k/uL RBC 4.44 (3.80-5.40) m/uL Hgb 13.9 D (11.4-16.0) gm/dL Hct 42.5 (34.0-46.0) % MCV 95.8 (80.0-100.0) fL MCH 31.2 (25.0-35.0) pg MCHC 32.6 (31.0-37.0) g/dL RDW 13.6 (11.5-15.5) % Plt Count 292 (150-450) k/uL MPV 8.9 Neutrophils % 73 % Lymphocytes % 19 % Monocytes % 4 % Eosinophils % 1 % Basophils % 1 % Neutrophils # 4.4 (1.3-7.7) k/uL Lymphocytes # 1.2 (1.0-4.8) k/uL Monocytes # 0.3 (0-1.0) k/uL Eosinophils # 0.1 (0-0.7) k/uL Basophils # 0.1 (0-0.2) k/uL Sodium 137 (137-145) mmol/L Potassium 3.3 L (3.5-5.1) mmol/L Chloride 100 (98-107) mmol/L Carbon Dioxide 28 (22-30) mmol/L Anion Gap 9 mmol/L BUN 6 L (7-17) mg/dL Creatinine 0.81 (0.52-1.04) mg/dL Est GFR (CKD-EPI)AfAm >90 (>60 ml/min/1.73 sqM) Est GFR (CKD-EPI)NonAf 84 (>60 ml/min/1.73 sqM) Glucose 117 H (74-99) mg/dL Calcium 9.6 (8.4-10.2) mg/dL Total Bilirubin 0.7 (0.2-1.3) mg/dL AST 30 (14-36) U/L ALT 28 (4-34) U/L Alkaline Phosphatase 164 H (38-126) U/L Total Protein 7.3 (6.3-8.2) g/dL Albumin 4.4 (3.5-5.0) g/dL Lipase 42 (23-300) U/L Urine Color Yellow Urine Appearance Clear (Clear) Urine pH 6.0 (5.0-8.0) Ur Specific [place] 1.021 (1.001-1.035) Urine Protein Trace H (Negative) Urine Glucose (UA) Negative (Negative) Urine Ketones Trace H (Negative) Urine Blood Small H (Negative) Urine Nitrite Negative (Negative) Urine Bilirubin Negative (Negative) Urine Urobilinogen 2.0 (<2.0) mg/dL Ur Leukocyte Esterase Small H (Negative) Urine RBC 1 (0-5) /hpf Urine WBC 5 (0-5) /hpf Ur Squamous Epith Cells 2 (0-4) /hpf Urine Mucus Many H (None) /hpf - Radiology Data Noncontrast CT abdomen/pelvis: 1. No definite abnormality to account for right flank pain. 2 No renal stones, hydronephrosis, or hydroureter evident. 3. Appendix is not identified. Inflammatory change is not identified. Clinical management of any suspected appendicitis will be required. Disposition Clinical Impression: Back pain, Nausea, Diarrhea Disposition: HOME SELF-CARE Condition: Stable Instructions (If sedation given, give patient instructions): Acute Nausea and Vomiting (ED), Acute Diarrhea (ED), Back Pain (ED) Additional Instructions: Return to the ER immediately should you develop new or worsening pain, leg numbness or weakness, trouble controlling your bladder or bowels, a fever, bloody diarrhea or vomiting, feeling dizzy or faint, shortness of breath, or new or worsening symptoms. Follow-up closely with your primary care provider. Is patient prescribed a controlled substance at d/c from ED?: No Referrals: None,Stated [Primary Care Provider] - 1-2 days Jose Antonio Hart MD [STAFF PHYSICIAN] - 1-2 days Time of Disposition: 14:59
[2024-07-11] MEDS: SODIUM CHLORIDE 0.9% 1,000 ML IV ONE (13:19)
[2024-07-11] MEDS: ONDANSETRON 4 MG/2 ML VIAL IVP STA (13:20)
[2024-07-11] MEDS: MORPHINE SULFATE 4 MG/ML SYRINGE IVP STA (13:20)
[2024-07-11 13:39] LABS: Basophils # (A) 0.1 k/uL (0-0.2); Basophils % (A) 1 %; Eosinophils # (A) 0.1 k/uL (0-0.7); Eosinophils % (A) 1 %; HCT 42.5 % (34.0-46.0); Lymphocytes # (A) 1.2 k/uL (1.0-4.8); Lymphocytes % (A) 19 %; MCH 31.2 pg (25.0-35.0); MCHC 32.6 g/dL (31.0-37.0); MCV 95.8 fL (80.0-100.0); Mean Platelet Volume 8.9; Monocytes # (A) 0.3 k/uL (0-1.0); Monocytes % (A) 4 %; Neutrophils # (A) 4.4 k/uL (1.3-7.7); Neutrophils % (A) 73 %; Platelet Count 292 k/uL (150-450); RBC 4.44 m/uL (3.80-5.40); RDW 13.6 % (11.5-15.5)
--- NOTE | 2024-07-11 13:49 | CT ---
EXAMINATION TYPE: CT abdomen pelvis wo con DATE OF EXAM: 07/11/2024 1:39 PM COMPARISON: None. CLINICAL INDICATION: Female, 54 years old with history of right flank pain, diarrhea, Right flank juliet n TECHNIQUE: Axial images were obtained from above the diaphragm to the pubic rami in the axial plane a t 5 mm thick sections. Reconstructed images are reviewed on the computer in the coronal plane. CONTRAST: mL of . Study performed without Oral Contrast DLP: 498.7 mGycm, Automated exposure control for dose reduction was used. FINDINGS: Limited CT sections are obtained the lung bases. The lung bases are clear. CT ABDOMEN: Liver: Normal Spleen: Normal Pancreas: Atrophic Adrenal glands: The adrenal glands are normal. Gallbladder: Surgically absent Kidneys: No masses are evident. No hydronephrosis is present. No cysts are present. No renal stone s are evident. Aorta: Normal Inferior vena cava: Normal. CT PELVIS: Loops of bowel within the abdomen and pelvis are normal. There appears to be some fluid within the cecum. The ileocecal valve is well visualized. This study is without oral contrast limiting bowel ev aluation. Appendix: The appendix is not clearly identified. Inflammatory change is not evident. Clinical manage ment of any suspected appendicitis will be required. Urinary bladder: Decompressed with limited evaluation. Genitourinary structures: Uterus and ovaries are not identified. Osseous structures: No suspicious lytic or sclerotic lesions. IMPRESSION: 1. No definite abnormality to account for right flank pain. 2. No renal stones, hydronephrosis, or hydroureter evident. 3. Appendix is not identified. Inflammatory change is not identified. Clinical management of any susp ected appendicitis will be required. [facility], , 07/11/2024 1:47 PM
[2024-07-11 13:51] LABS: HGB 13.9 gm/dL (11.4-16.0)
[2024-07-11 13:52] LABS: ALT 28 U/L (4-34); AST 30 U/L (14-36); African American GFR (CKD) >90 (>60 ml/min/1.73 sqM); Albumin 4.4 g/dL (3.5-5.0); Alkaline Phosphatase 164 U/L (38-126); Anion Gap 9 mmol/L; Blood Urea Nitrogen 6 mg/dL (7-17); Calcium 9.6 mg/dL (8.4-10.2); Carbon Dioxide 28 mmol/L (22-30); Chloride 100 mmol/L (98-107); Glucose 117 mg/dL (74-99); Lipase 42 U/L (23-300); Non-African American GFR(CKD) 84 (>60 ml/min/1.73 sqM); Potassium 3.3 mmol/L (3.5-5.1); Sodium 137 mmol/L (137-145); Total Bilirubin 0.7 mg/dL (0.2-1.3); Total Protein 7.3 g/dL (6.3-8.2)
[2024-07-11 14:21] LABS: Appearance,Urine Clear (Clear); Bilirubin,Urine Negative (Negative); Blood,Urine Small (Negative); Color,Urine Yellow; Glucose,Urine (UA) Negative (Negative); Ketones,Urine Trace (Negative); Leukocyte Esterase,Urine Small (Negative); Mucus,Urine Many /hpf; Nitrite,Urine Negative (Negative); Protein,Urine Trace (Negative); RBC,Urine 1 /hpf (0-5); Specific Gravity,Urine 1.021 (1.001-1.035); Squamous Epithelial Cell,Urine 2 /hpf (0-4); WBC,Urine 5 /hpf (0-5)
[2024-07-11 14:53] VITALS: BP 168/101; PULSE 96; RESP 18
== END 2024-07-11 15:35 | disposition home or self-care (01) ==
LOC: EC 12:28
DX: M54.50 Low back pain, unspecified (principal); R19.7 Diarrhea, unspecified; R11.0 Nausea; Z87.891 Personal history of nicotine dependence; Z88.0 Allergy status to penicillin; Z88.1 Allergy status to other antibiotic agents; Z88.2 Allergy status to sulfonamides; Z88.5 Allergy status to narcotic agent; Z88.6 Allergy status to analgesic agent; Z88.8 Allergy status to other drugs, medicaments and biological substances; Z91.040 Latex allergy status
CPT/HCPCS: 36415; 93005; 80053; 83690; 85025; 81001; 74176; 99284; 96374; 96375; 96361; J2270; J2405

== ENCOUNTER 2024-08-16 11:16 | Emergency (ER) | payer OTHER ==
[2024-08-16 11:43] VITALS: RESP 18
--- NOTE | 2024-08-16 12:54 | ED ---
Headache HPI - General Chief Complaint: Headache Stated Complaint: Headache Time Seen by Provider: 08/16/24 12:52 Source: patient, RN notes reviewed Mode of arrival: ambulatory Limitations: no limitations - History of Present Illness Initial Comments: 54-year-old female with history of migraines presenting for headache x 3 days. States this feels similar in quality to previous migraines. Tried at home medications with little relief. Describes a pain from the nape of her neck radiating to her right eye which she states is typical for her migraine flareups. Denies head injury. - Related Data Home Medications Medication Instructions Recorded Confirmed Omeprazole [PriLOSEC] 20 mg PO HS 12/15/20 05/09/24 Thiamine [Vitamin B-1] 100 mg PO DAILY 01/04/21 05/09/24 Atorvastatin [Lipitor] 40 mg PO HS 07/20/21 05/09/24 DULoxetine HCL [Cymbalta] 60 mg PO HS 07/20/21 05/09/24 Atogepant [Qulipta] 60 mg PO HS 06/03/22 05/09/24 Cyclobenzaprine [Flexeril] 10 mg PO TID PRN 06/03/22 05/09/24 HYDROcodone/APAP 10-325MG [[place] 1 tab PO TID 06/03/22 05/09/24 10-325] Aspirin 81 mg PO HS 08/29/22 05/09/24 Cyanocobalamin (Vitamin B-12) 1,000 mcg PO DAILY 09/07/23 05/09/24 [Vitamin B-12] Multivitamins, Thera [Multivitamin 1 tab PO HS 09/07/23 05/09/24 (formulary)] Zavegepant HCl [Zavzpret] 1 spray NASAL DAILY PRN 09/07/23 05/09/24 Potassium Chloride ER [K-Dur 10] 10 meq PO BID 12/10/23 05/09/24 QUEtiapine FUMARATE [SEROquel] 300 mg PO HS 01/10/24 05/09/24 Previous Rx's Medication Instructions Recorded Dicyclomine [Bentyl] 10 mg PO QID 7 Days #28 cap 03/12/24 Metoprolol Tartrate 25 mg PO BID #90 tab 03/16/24 Cephalexin [Keflex] 500 mg PO Q6HR 10 Days #40 cap 05/14/24 Allergies Allergy/AdvReac Type Severity Reaction Status Date / Time dihydroergotamine Allergy Unknown Unknown Verified 08/16/24 11:43 [From Migranal] buprenorphine Allergy Rash/Hives Verified 08/16/24 11:43 gabapentin [From Neurontin] Allergy Itching/Swe Verified 08/16/24 11:43 lling latex Allergy Anaphylaxis Verified 08/16/24 11:43 naproxen [From Naprosyn] Allergy Anaphylaxis Verified 08/16/24 11:43 Penicillins Allergy Anaphylaxis Verified 08/16/24 11:43 quetiapine fumarate Allergy Itching, Verified 08/16/24 11:43 [From Seroquel] leg cramps rofecoxib [From Vioxx] Allergy Itching, Verified 08/16/24 11:43 leg cramps terfenadine [From Seldane] Allergy Rash/Hives Verified 08/16/24 11:43 vancomycin Allergy Rash/Hives/Swelling Verified 08/16/24 11:43 @IV site calcium carbonate [From DHEA] AdvReac Chest Pain Verified 08/16/24 11:43 calcium phosphate,dibasic AdvReac Chest Pain Verified 08/16/24 11:43 [From DHEA] clindamycin AdvReac muscle Verified 08/16/24 11:43 cramps clonidine AdvReac fast Verified 08/16/24 11:43 heartbeat, migraine dextromethorphan HBr AdvReac face/neck Verified 08/16/24 11:43 [From NyQuil] flushing diazepam [From Valium] AdvReac Nausea & Verified 08/16/24 11:43 Vomiting divalproex sodium AdvReac Nausea & Verified 08/16/24 11:43 [From Depakote] Vomiting doxylamine [From NyQuil] AdvReac face "beet Verified 08/16/24 11:43 red", elevated temp. ibuprofen [From Motrin] AdvReac abdominal Verified 08/16/24 11:43 & muscle cramps indomethacin [From Indocin] AdvReac Abdominal Verified 08/16/24 11:43 Pain,N/V ketorolac tromethamine AdvReac "built up Verified 08/16/24 11:43 [From Toradol] in system", had to be given something to reverse lorazepam [From Ativan] AdvReac Nausea & Verified 08/16/24 11:43 Vomiting memantine [From Namenda] AdvReac Itching Verified 08/16/24 11:43 metoclopramide HCl AdvReac muscle Verified 08/16/24 11:43 [From Reglan] cramps nortriptyline [From Pamelor] AdvReac Chest Pain Verified 08/16/24 11:43 prasterone (DHEA) [From DHEA] AdvReac Chest Pain Verified 08/16/24 11:43 prochlorperazine AdvReac leg Verified 08/16/24 11:43 [From Compazine] cramping propranolol AdvReac Chest Pain Verified 08/16/24 11:43 pseudoephedrine HCl AdvReac face "beet Verified 08/16/24 11:43 [From NyQuil] red", elevated temp. quetiapine [From Seroquel] AdvReac leg Verified 08/16/24 11:43 cramping sumatriptan [From Imitrex] AdvReac migrane Verified 08/16/24 11:43 sumatriptan succinate AdvReac migrane Verified 08/16/24 11:43 [From Imitrex] topiramate [From Topamax] AdvReac "built up Verified 08/16/24 11:43 in system", had to be given something to reverse tramadol AdvReac Nausea & Verified 08/16/24 11:43 Vomiting/LEG CRAMPS/HEART FLUTTERS trazodone AdvReac "built up Verified 08/16/24 11:43 in system", had to be given something to reverse zolpidem tartrate AdvReac "Became Verified 08/16/24 11:43 [From Ambien] violent with no memory" zonisamide [From Zonegran] AdvReac inability Verified 08/16/24 11:43 to eat steroids Allergy Swelling Uncoded 08/16/24 11:43 artificial sweetener AdvReac SEVERE Uncoded 08/16/24 11:43 MIGRAINE HEADACHE prosyn AdvReac Itching Uncoded 08/16/24 11:43 Review of Systems ROS Statement: Those systems with pertinent positive or pertinent negative responses have been documented in the HPI. ROS Other: All systems not noted in ROS Statement are negative. Past Medical History Past Medical History: Hyperlipidemia, Hypertension, Seizure Disorder, Supraventricular Tachycardia (SVT) Additional Past Medical History / Comment(s): Migraines, viral meningitis x3 as a child, 1995, 2000, chronic back pain, nerve blocks (neck and occipital nerve) 08/2016 and 12/2016. Last seizure 10/10/2020, "ABSENT SEIZURES. HX TACHYCARDIA, Complex PTSD. gillean barre History of Any Multi-Drug Resistant Organisms: None Reported Past Surgical History: Appendectomy, Section, Cholecystectomy, Heart Catheterization, Heart Catheterization With Stent, Hernia Repair, Hysterectomy, Orthopedic Surgery, Tonsillectomy, Tubal Ligation Additional Past Surgical History / Comment(s): Hiatal Hernia, umbilical hernia repair, left rotator cuff repair, bilateral knee scopes, pain clinic procedures- occipital nerve block. abd exploratory sx(endometreosis), 3 abd scopes 1981, 1989, 1991), lumbar puncture. EGD. nerve biopsy, salvalry gland biospy, Port (R ight side 2018, left side 2020), Esophogeal dilation(2023) Past Anesthesia/Blood Transfusion Reactions: No Reported Reaction Additional Past Anesthesia/Blood Transfusion Reaction / Comment(s): Claustrophobic Date of Last Stent Placement:: 06/03/2022 Past Psychological History: Anxiety, Bipolar, Panic Disorder, PTSD Smoking Status: Former smoker Past Alcohol Use History: None Reported Past Drug Use History: None Reported - Past Family History Mother Family Medical History: Cancer, Dementia, Diabetes Mellitus, GERD/Reflux, Hyperlipidemia, Hypertension, Thyroid Disorder, Vascular Disorder Additional Family Medical History / Comment(s): CABG x2, stents Father History Unknown: Yes Family Medical History: No Reported History General Exam Limitations: no limitations General appearance: alert, in no apparent distress Head exam: Present: atraumatic, normocephalic, normal inspection Eye exam: Present: normal appearance, PERRL, EOMI. Absent: scleral icterus, conjunctival injection, periorbital swelling ENT exam: Present: normal exam, mucous membranes moist Neurological exam: Present: alert, oriented X3, CN II-XII intact Psychiatric exam: Present: normal affect, normal mood Skin exam: Present: warm, dry, intact, normal color. Absent: rash Course Vital Signs 08/16/24 11:41 Temperature 97.9 F Pulse Rate 94 Respiratory 18 Rate Blood Pressure 143/102 O2 Sat by Pulse 96 Oximetry Medical Decision Making - Medical Decision Making Was pt. sent in by a medical professional or institution (, SHANTHI, FOOD SALES CLERK, urgent care, hospital, or penitentiary...) When possible be specific @ -No Did you speak to anyone other than the patient for history (EMS, parent, family, police, friend...)? What history was obtained from this source @ -No Did you review nursing and triage notes (agree or disagree)? Why? @ -I reviewed and agree with nursing and triage notes Were old charts reviewed (outside hosp., previous admission, EMS record, old EKG, old radiological studies, urgent care reports/EKG's, penitentiary records)? Report findings @ -No old charts were reviewed Differential Diagnosis (chest pain, altered mental status, abdominal pain women, abdominal pain men, vaginal bleeding, weakness, fever, dyspnea, syncope, headache, dizziness, GI bleed, back pain, seizure, CVA, palpatations, mental health, musculoskeletal)? @ -Differential Headache: Migraine, tension, cluster, carbon monoxide, central venous thrombosis, pension karma temporal arteritis, acute closure glaucoma, intercranial hemorrhage, mastoiditis, sinusitis, head injury, this is not meant to be an all-inclusive list. EKG interpreted by me (3pts min.). @ -None X-rays interpreted by me (1pt min.). @ -None done CT interpreted by me (1pt min.). @ -None done U/S interpreted by me (1pt. min.). @ -None done What testing was considered but not performed or refused? (CT, X-rays, U/S, labs)? Why? @ -None What meds were considered but not given or refused? Why? @ -None Did you discuss the management of the patient with other professionals (professionals i.e. , SHANTHI, FOOD SALES CLERK, lab, RT, psych nurse, transition social worker, advertising director, teacher, community development officer, case fitter)? Give summary @ -No Was smoking cessation discussed for >3mins.? @ -No Was critical care preformed (if so, how long)? @ -No Were there social determinants of health that impacted care today? How? (Homelessness, low income, unemployed, alcoholism, drug addiction, transportation, low edu. Level, literacy, decrease access to med. care, [facility], rehab)? @ -No Was there de-escalation of care discussed even if they declined (Discuss DNR or withdrawal of care, Hospice)? DNR status @ -No What co-morbidities impacted this encounter? (DM, HTN, Smoking, COPD, CAD, Cancer, CVA, ARF, Chemo, Hep., AIDS, mental health diagnosis, sleep apnea, m orbid obesity)? @ -None Was patient admitted / discharged? Hospital course, mention meds given and route, prescriptions, significant lab abnormalities, going to OR and other pertinent info. @ -Discharge. 54-year-old female with history of migraines presenting for headache x 3 days. States this is similar in quality to previous migraines. Provided with migraine cocktail and reports significant symptom improvement. Patient can be safely discharged home. Appropriate return precautions and follow-up care discussed. Case was discussed with my ED attending Dr. Duffy Undiagnosed new problem with uncertain prognosis? @ -No Drug Therapy requiring intensive monitoring for toxicity (Heparin, Nitro, Insulin, Cardizem)? @ -No Were any procedures done? @ -No Diagnosis/symptom? @ -Headache Acute, or Chronic, or Acute on Chronic? @ -Acute Uncomplicated (without systemic symptoms) or Complicated (systemic symptoms)? @ -Uncomplicated Side effects of treatment? @ -No Exacerbation, Progression, or Severe Exacerbation? @ -No Poses a threat to life or bodily function? How? (Chest pain, [place], [place], pneumonia, PE, COPD, DKA, ARF, appy, cholecystitis, CVA, Diverticulitis, Homicidal, Suicidal, threat to staff... and all critical care pts) @ -No Disposition Clinical Impression: Headache Disposition: HOME SELF-CARE Condition: Stable Instructions (If sedation given, give patient instructions): Acute Headache (ED) Additional Instructions: Please return to the Emergency Department if symptoms worsen or any other concerns. Is patient prescribed a controlled substance at d/c from ED?: No Referrals: José Reece MD [Primary Care Provider] - 1-2 days Time of Disposition: 14:39
[2024-08-16] MEDS: METOCLOPRAMIDE 5 MG/ML 2 ML VIAL IVP STA (13:00)
[2024-08-16] MEDS: SODIUM CHLORIDE 0.9% 1,000 ML IV STA (13:09)
[2024-08-16] MEDS: diphenhydrAMINE 50 MG/ML 1 ML VIAL IVP STA (13:12)
[2024-08-16] MEDS: HYDROmorphone 1 MG/ML 1 ML SYRINGE IVP STA (13:15)
[2024-08-16] MEDS: ONDANSETRON 4 MG/2 ML VIAL IVP STA (13:23)
[2024-08-16] MEDS: ACETAMINOPHEN TAB 500 MG TAB PO STA (14:52)
[2024-08-16 14:57] VITALS: BP 136/91; PULSE 88; TEMP 98
== END 2024-08-16 14:57 | disposition home or self-care (01) ==
LOC: EC 11:16
DX: G43.909 Migraine, unspecified, not intractable, without status migrainosus (principal); Z87.891 Personal history of nicotine dependence; Z88.0 Allergy status to penicillin; Z88.1 Allergy status to other antibiotic agents; Z88.2 Allergy status to sulfonamides; Z88.5 Allergy status to narcotic agent; Z88.6 Allergy status to analgesic agent; Z88.8 Allergy status to other drugs, medicaments and biological substances; Z91.040 Latex allergy status
CPT/HCPCS: 99283; 96374; 96375 ×2; 96361; J1200; J2405; J1171

== ENCOUNTER 2024-09-22 11:24 | Emergency (ER) | payer OTHER ==
[2024-09-22 11:30] VITALS: TEMP 97.6
[2024-09-22] MEDS: SODIUM CHLORIDE 0.9% 1,000 ML IV STA (12:42)
[2024-09-22] MEDS: diphenhydrAMINE 50 MG/ML 1 ML VIAL IVP STA (12:45)
[2024-09-22] MEDS: HYDROmorphone 1 MG/ML 1 ML SYRINGE IVP STA (12:45)
[2024-09-22] MEDS: ONDANSETRON 4 MG/2 ML VIAL IVP STA (12:45)
[2024-09-22] MEDS: METOCLOPRAMIDE 5 MG/ML 2 ML VIAL IVP STA (12:48)
--- NOTE | 2024-09-22 13:31 | ED ---
Headache HPI - General Chief Complaint: Headache Stated Complaint: headache Time Seen by Provider: 09/22/24 13:27 Source: patient, RN notes reviewed Mode of arrival: ambulatory Limitations: no limitations - History of Present Illness Initial Comments: 54-year-old female with history of migraines presenting for headache since this morning. States this feels typical to her previous migraines however she took her to abortive medications which did little to relieve her symptoms. Admits to nausea. Denies vision changes. - Related Data Home Medications Medication Instructions Recorded Confirmed Omeprazole [PriLOSEC] 20 mg PO HS 12/15/20 05/09/24 Thiamine [Vitamin B-1] 100 mg PO DAILY 01/04/21 05/09/24 Atorvastatin [Lipitor] 40 mg PO HS 07/20/21 05/09/24 DULoxetine HCL [Cymbalta] 60 mg PO HS 07/20/21 05/09/24 Atogepant [Qulipta] 60 mg PO HS 06/03/22 05/09/24 Cyclobenzaprine [Flexeril] 10 mg PO TID PRN 06/03/22 05/09/24 HYDROcodone/APAP 10-325MG [[place] 1 tab PO TID 06/03/22 05/09/24 10-325] Aspirin 81 mg PO HS 08/29/22 05/09/24 Cyanocobalamin (Vitamin B-12) 1,000 mcg PO DAILY 09/07/23 05/09/24 [Vitamin B-12] Multivitamins, Thera [Multivitamin 1 tab PO HS 09/07/23 05/09/24 (formulary)] Zavegepant HCl [Zavzpret] 1 spray NASAL DAILY PRN 09/07/23 05/09/24 Potassium Chloride ER [K-Dur 10] 10 meq PO BID 12/10/23 05/09/24 QUEtiapine FUMARATE [SEROquel] 300 mg PO HS 01/10/24 05/09/24 Previous Rx's Medication Instructions Recorded Dicyclomine [Bentyl] 10 mg PO QID 7 Days #28 cap 03/12/24 Metoprolol Tartrate 25 mg PO BID #90 tab 03/16/24 Cephalexin [Keflex] 500 mg PO Q6HR 10 Days #40 cap 05/14/24 Allergies Allergy/AdvReac Type Severity Reaction Status Date / Time dihydroergotamine Allergy Unknown Unknown Verified 09/22/24 11:30 [From Migranal] buprenorphine Allergy Rash/Hives Verified 09/22/24 11:30 gabapentin [From Neurontin] Allergy Itching/Swe Verified 09/22/24 11:30 lling latex Allergy Anaphylaxis Verified 09/22/24 11:30 naproxen [From Naprosyn] Allergy Anaphylaxis Verified 09/22/24 11:30 Penicillins Allergy Anaphylaxis Verified 09/22/24 11:30 quetiapine fumarate Allergy Itching, Verified 09/22/24 11:30 [From Seroquel] leg cramps rofecoxib [From Vioxx] Allergy Itching, Verified 09/22/24 11:30 leg cramps terfenadine [From Seldane] Allergy Rash/Hives Verified 09/22/24 11:30 vancomycin Allergy Rash/Hives/Swelling Verified 09/22/24 11:30 @IV site calcium carbonate [From DHEA] AdvReac Chest Pain Verified 09/22/24 11:30 calcium phosphate,dibasic AdvReac Chest Pain Verified 09/22/24 11:30 [From DHEA] clindamycin AdvReac muscle Verified 09/22/24 11:30 cramps clonidine AdvReac fast Verified 09/22/24 11:30 heartbeat, migraine dextromethorphan HBr AdvReac face/neck Verified 09/22/24 11:30 [From NyQuil] flushing diazepam [From Valium] AdvReac Nausea & Verified 09/22/24 11:30 Vomiting divalproex sodium AdvReac Nausea & Verified 09/22/24 11:30 [From Depakote] Vomiting doxylamine [From NyQuil] AdvReac face "beet Verified 09/22/24 11:30 red", elevated temp. ibuprofen [From Motrin] AdvReac abdominal Verified 09/22/24 11:30 & muscle cramps indomethacin [From Indocin] AdvReac Abdominal Verified 09/22/24 11:30 Pain,N/V ketorolac tromethamine AdvReac "built up Verified 09/22/24 11:30 [From Toradol] in system", had to be given something to reverse lorazepam [From Ativan] AdvReac Nausea & Verified 09/22/24 11:30 Vomiting memantine [From Namenda] AdvReac Itching Verified 09/22/24 11:30 metoclopramide HCl AdvReac muscle Verified 09/22/24 11:30 [From Reglan] cramps nortriptyline [From Pamelor] AdvReac Chest Pain Verified 09/22/24 11:30 prasterone (DHEA) [From DHEA] AdvReac Chest Pain Verified 09/22/24 11:30 prochlorperazine AdvReac leg Verified 09/22/24 11:30 [From Compazine] cramping propranolol AdvReac Chest Pain Verified 09/22/24 11:30 pseudoephedrine HCl AdvReac face "beet Verified 09/22/24 11:30 [From NyQuil] red", elevated temp. quetiapine [From Seroquel] AdvReac leg Verified 09/22/24 11:30 cramping sumatriptan [From Imitrex] AdvReac migrane Verified 09/22/24 11:30 sumatriptan succinate AdvReac migrane Verified 09/22/24 11:30 [From Imitrex] topiramate [From Topamax] AdvReac "built up Verified 09/22/24 11:30 in system", had to be given something to reverse tramadol AdvReac Nausea & Verified 09/22/24 11:30 Vomiting/LEG CRAMPS/HEART FLUTTERS trazodone AdvReac "built up Verified 09/22/24 11:30 in system", had to be given something to reverse zolpidem tartrate AdvReac "Became Verified 09/22/24 11:30 [From Ambien] violent with no memory" zonisamide [From Zonegran] AdvReac inability Verified 09/22/24 11:30 to eat steroids Allergy Swelling Uncoded 09/22/24 11:30 artificial sweetener AdvReac SEVERE Uncoded 09/22/24 11:30 MIGRAINE HEADACHE prosyn AdvReac Itching Uncoded 09/22/24 11:30 Review of Systems ROS Statement: Those systems with pertinent positive or pertinent negative responses have been documented in the HPI. ROS Other: All systems not noted in ROS Statement are negative. Past Medical History Past Medical History: Hyperlipidemia, Hypertension, Seizure Disorder, Supraventricular Tachycardia (SVT) Additional Past Medical History / Comment(s): Migraines, viral meningitis x3 as a child, 1995, 2000, chronic back pain, nerve blocks (neck and occipital nerve) 08/2016 and 12/2016. Last seizure 10/10/2020, "ABSENT SEIZURES. HX TACHYCARDIA, Complex PTSD. gillean barre History of Any Multi-Drug Resistant Organisms: None Reported Past Surgical History: Appendectomy, Section, Cholecystectomy, Heart Catheterization, Heart Catheterization With Stent, Hernia Repair, Hysterectomy, Orthopedic Surgery, Tonsillectomy, Tubal Ligation Additional Past Surgical History / Comment(s): Hiatal Hernia, umbilical hernia repair, left rotator cuff repair, bilateral knee scopes, pain clinic procedures- occipital nerve block. abd exploratory sx(endometreosis), 3 abd scopes 1981, 1989, 1991), lumbar puncture. EGD. nerve biopsy, salvalry gland biospy, Port (Right side 2018, left side 2020), Esophogeal dilation(2023) Past Anesthesia/Blood Transfusion Reactions: No Reported Reaction Additional Past Anesthesia/Blood Transfusion Reaction / Comment(s): Claustrophobic Date of Last Stent Placement:: 06/03/2022 Past Psychological History: Anxiety, Bipolar, Panic Disorder, PTSD Smoking Status: Former smoker Past Alcohol Use History: None Reported Past Drug Use History: None Reported - Past Family History Mother Family Medical History: Cancer, Dementia, Diabetes Mellitus, GERD/Reflux, Hyperlipidemia, Hypertension, Thyroid Disorder, Vascular Disorder Additional Family Medical History / Comment(s): CABG x2, stents Father History Unknown: Yes Family Medical History: No Reported History General Exam Limitations: no limitations General appearance: alert, in no apparent distress Head exam: Present: atraumatic, normocephalic, normal inspection Eye exam: Present: normal appearance, PERRL, EOMI. Absent: scleral icterus, conjunctival injection, periorbital swelling ENT exam: Present: normal exam, mucous membranes moist Neck exam: Present: normal inspection. Absent: tenderness, meningismus, lymphadenopathy Respiratory exam: Present: normal lung sounds bilaterally. Absent: respiratory distress, wheezes, rales, rhonchi, stridor Cardiovascular Exam: Present: regular rate, normal rhythm, normal heart sounds. Absent: systolic murmur, diastolic murmur, rubs, gallop, clicks Neurological exam: Present: alert, oriented X3, CN II-XII intact Psychiatric exam: Present: normal affect, normal mood Skin exam: Present: warm, dry, intact, normal color. Absent: rash Course Vital Signs 09/22/24 09/22/24 09/22/24 11:28 12:30 13:30 Temperature 97.6 F Pulse Rate 120 H 108 H 105 H Respiratory 17 16 22 Rate Blood Pressure 156/115 180/115 171/121 O2 Sat by Pulse 100 99 98 Oximetry 09/22/24 14:58 Temperature Pulse Rate 97 Respiratory 16 Rate Blood Pressure 139/112 O2 Sat by Pulse 97 Oximetry Medical Decision Making - Medical Decision Making Was pt. sent in by a medical professional or institution (, PA, SPICE MIXER, urgent care, hospital, or prison...) When possible be specific @ -No Did you speak to anyone other than the patient for history (EMS, parent, family, police, friend...)? What history was obtained from this source @ -No Did you review nursing and triage notes (agree or disagree)? Why? @ -I reviewed and agree with nursing and triage notes Were old charts reviewed (outside hosp., previous admission, EMS record, old EKG, old radiological studies, urgent care reports/EKG's, prison records)? Report findings @ -No old charts were reviewed Differential Diagnosis (chest pain, altered mental status, abdominal pain women, abdominal pain men, vaginal bleeding, weakness, fever, dyspnea, syncope, headache, dizziness, GI bleed, back pain, seizure, CVA, palpatations, mental health, musculoskeletal)? @ -Differential Headache: Migraine, tension, cluster, carbon monoxide, central venous thrombosis, pension karma temporal arteritis, acute closure glaucoma, intercranial hemorrhage, mastoiditis, sinusitis, head injury, this is not meant to be an all-inclusive list. EKG interpreted by me (3pts min.). @ -None X-rays interpreted by me (1pt min.). @ -None done CT interpreted by me (1pt min.). @ -None done U/S interpreted by me (1pt. min.). @ -None done What testing was considered but not performed or refused? (CT, X-rays, U/S, labs)? Why? @ -None What meds were considered but not given or refused? Why? @ -None Did you discuss the management of the patient with other professionals (professionals i.e. Dr., PA, SPICE MIXER, lab, RT, psych nurse, social media director, field artillery operations man, teacher, property utilization officer, case loader operator)? Give summary @ -No Was smoking cessation discussed for >3mins.? @ -No Was critical care preformed (if so, how long)? @ -No Were there social determinants of health that impacted care today? How? (Homelessness, low income, unemployed, alcoholism, drug addiction, transportation, low edu. Level, literacy, decrease access to med. care, shelter, rehab)? @ -No Was there de-escalation of care discussed even if they declined (Discuss DNR or withdrawal of care, Hospice)? DNR status @ -No What co-morbidities impacted this encounter? (DM, HTN, Smoking, COPD, CAD, Cancer, CVA, ARF, Chemo, Hep., AIDS, mental health diagnosis, sleep apnea, morbid obesity)? @ -None Was patient admitted / discharged? Hospital course, mention meds given and route, prescriptions, significant lab abnormalities, going to OR and other pertinent info. @ -Discharge. 54-year-old female with history of migraines presenting for headache since this morning. States symptoms feel similar to previous migraines. Initial vital signs remarkable for tachycardia and hypertension. Patient is overall well-appearing, no acute distress. Neurological examination unremarkable. Provided with IV fluids, Benadryl, Zofran, and Dilaudid. Upon reevaluation, patient reports significant improvement of symptoms. Repeat blood pressure 139/112, heart rate 97 bpm. Patient can be safely discharged home with close outpatient follow-up and strict return precautions. Case was discussed wi th my ED attending Dr. Bergeron. Undiagnosed new problem with uncertain prognosis? @ -No Drug Therapy requiring intensive monitoring for toxicity (Heparin, Nitro, Insulin, Cardizem)? @ -No Were any procedures done? @ -No Diagnosis/symptom? @ -Headache Acute, or Chronic, or Acute on Chronic? @ -Acute Uncomplicated (without systemic symptoms) or Complicated (systemic symptoms)? @ -Uncomplicated Side effects of treatment? @ -No Exacerbation, Progression, or Severe Exacerbation? @ -No Poses a threat to life or bodily function? How? (Chest pain, [place], [place], pneumonia, PE, COPD, DKA, ARF, appy, cholecystitis, CVA, Diverticulitis, Homicidal, Suicidal, threat to staff... and all critical care pts) @ -No Disposition Clinical Impression: Headache Disposition: HOME SELF-CARE Condition: Stable Instructions (If sedation given, give patient instructions): Acute Headache (ED) Additional Instructions: Follow-up with your neurologist. Please return to the Emergency Department if symptoms worsen or any other concerns. Is patient prescribed a controlled substance at d/c from ED?: No Referrals: José Reece MD [Primary Care Provider] - 1-2 days Time of Disposition: 14:41
[2024-09-22] MEDS: HYDROmorphone 0.5 MG/0.5 ML SYRINGE IVP STA (13:47)
[2024-09-22 14:59] VITALS: BP 139/112; PULSE 97; RESP 16
== END 2024-09-22 14:58 | disposition home or self-care (01) ==
LOC: EC 11:24
DX: R51.9 Headache, unspecified (principal); Z88.0 Allergy status to penicillin; Z88.1 Allergy status to other antibiotic agents; Z88.2 Allergy status to sulfonamides; Z88.5 Allergy status to narcotic agent; Z88.6 Allergy status to analgesic agent; Z88.8 Allergy status to other drugs, medicaments and biological substances; Z91.040 Latex allergy status; Z87.891 Personal history of nicotine dependence
CPT/HCPCS: 99284; 96374; 96375 ×2; 96376; 96361 ×2; J1200; J2405; J1171 ×2

== ENCOUNTER 2024-09-26 19:54 | Emergency (ER) | payer OTHER ==
[2024-09-26 20:04] VITALS: RESP 18; TEMP 97.9
--- NOTE | 2024-09-26 20:52 | XR ---
EXAMINATION TYPE: XR chest 2V DATE OF EXAM: 09/26/2024 8:44 PM COMPARISON: Chest radiograph dated 03/08/2024. CLINICAL INDICATION: Female, 54 years old with history of Chest Pain; [facility] TECHNIQUE: XR chest 2V Frontal and lateral views of the chest. FINDINGS: Lungs/Pleura: There is no evidence of pleural effusion, focal consolidation, or pneumothorax. Pulmonary vascularity: Unremarkable. Heart/mediastinum: Cardiomediastinal silhouette is unremarkable. Musculoskeletal: No acute osseous pathology. Other findings: None Lines/Tubes: Left chest wall port catheter distal catheter tip terminating near the cavoatrial junction. IMPRESSION: No acute cardiopulmonary disease/process. [facility], , 09/26/2024 8:49 PM
[2024-09-26 20:55] LABS: Basophils # (A) 0.06 10*3/uL (0.00-0.10); Basophils % (A) 0.6 %; Eosinophils # (A) 0.05 10*3/uL (0.04-0.35); Eosinophils % (A) 0.5 %; HCT 35.9 % (37.2-46.3); HGB 12.2 g/dL (12.0-15.0); Lymphocytes # (A) 2.34 10*3/uL (0.90-5.00); MCH 31.9 pg (27.0-32.0); MCV 93.7 fL (80.0-97.0); Mean Platelet Volume 10.7 fL (9.5-12.2); Monocytes # (A) 0.74 10*3/uL (0.20-1.00); Neutrophils # (A) 7.42 10*3/uL (1.80-7.70); Neutrophils % (A) 69.6 %; Platelet Count 324 10*3/uL (140-440); RBC 3.83 10*6/uL (4.10-5.20); RDW 14.4 % (11.5-14.5); WBC 10.64 10*3/uL (4.50-10.00)
[2024-09-26 21:12] LABS: INR 0.9 (<1.2); Partial Thromboplastin Time 28.8 sec (22.0-30.0); Prothrombin Time 10.2 sec (10.0-12.5)
[2024-09-26 21:15] LABS: ALT 19 U/L (4-34); AST 24 U/L (14-36); African American GFR (CKD) 84 (>60 ml/min/1.73 sqM); Albumin 3.9 g/dL (3.5-5.0); Alkaline Phosphatase 144 U/L (38-126); Anion Gap 10 mmol/L; Blood Urea Nitrogen 10 mg/dL (7-17); Calcium 9.1 mg/dL (8.4-10.2); Carbon Dioxide 23 mmol/L (22-30); Chloride 105 mmol/L (98-107); Glucose 98 mg/dL (74-99); Magnesium 1.9 mg/dL (1.6-2.3); Non-African American GFR(CKD) 73 (>60 ml/min/1.73 sqM); Potassium 3.7 mmol/L (3.5-5.1); Sodium 138 mmol/L (137-145); Total Bilirubin 0.4 mg/dL (0.2-1.3); Total Protein 6.5 g/dL (6.3-8.2)
--- NOTE | 2024-09-26 21:56 | ED ---
Chest Pain HPI - General Chief Complaint: Chest Pain Stated Complaint: Chest Pain Time Seen by Provider: 09/26/24 21:48 Source: patient, RN notes reviewed, old records reviewed Mode of arrival: ambulatory Limitations: no limitations - History of Present Illness Initial Comments: This is a 54-year-old female to the ER for evaluation of pain chest pain chronic pain. Some mild shortness of breath, improving in the ER. Patient is unable to take pain medications at home secondary to nausea, main concern is abdominal pain causing chest pain which she believes is her normal chronic pain MD Complaint: chest pain -: days(s) Pain Location: epigastric Pain Radiation: abdomen Severity: moderate Severity scale (1-10): 7 Quality: tightness, aching Consistency: intermittent Improves With: nothing Anginal Symptoms: dyspnea Other Symptoms: other (0) Treatments Prior to Arrival: none - Related Data Home Medications Medication Instructions Recorded Confirmed Omeprazole [PriLOSEC] 20 mg PO HS 12/15/20 05/09/24 Thiamine [Vitamin B-1] 100 mg PO DAILY 01/04/21 05/09/24 Atorvastatin [Lipitor] 40 mg PO HS 07/20/21 05/09/24 DULoxetine HCL [Cymbalta] 60 mg PO HS 07/20/21 05/09/24 Atogepant [Qulipta] 60 mg PO HS 06/03/22 05/09/24 Cyclobenzaprine [Flexeril] 10 mg PO TID PRN 06/03/22 05/09/24 HYDROcodone/APAP 10-325MG [[place] 1 tab PO TID 06/03/22 05/09/24 10-325] Aspirin 81 mg PO HS 08/29/22 05/09/24 Cyanocobalamin (Vitamin B-12) 1,000 mcg PO DAILY 09/07/23 05/09/24 [Vitamin B-12] Multivitamins, Thera [Multivitamin 1 tab PO HS 09/07/23 05/09/24 (formulary)] Zavegepant HCl [Zavzpret] 1 spray NASAL DAILY PRN 09/07/23 05/09/24 Potassium Chloride ER [K-Dur 10] 10 meq PO BID 12/10/23 05/09/24 QUEtiapine FUMARATE [SEROquel] 300 mg PO HS 01/10/24 05/09/24 Previous Rx's Medication Instructions Recorded Dicyclomine [Bentyl] 10 mg PO QID 7 Days #28 cap 03/12/24 Metoprolol Tartrate 25 mg PO BID #90 tab 03/16/24 Cephalexin [Keflex] 500 mg PO Q6HR 10 Days #40 cap 05/14/24 Allergies Allergy/AdvReac Type Severity Reaction Status Date / Time dihydroergotamine Allergy Unknown Unknown Verified 09/26/24 20:04 [From Migranal] buprenorphine Allergy Rash/Hives Verified 09/26/24 20:04 gabapentin [From Neurontin] Allergy Itching/Swe Verified 09/26/24 20:04 lling latex Allergy Anaphylaxis Verified 09/26/24 20:04 naproxen [From Naprosyn] Allergy Anaphylaxis Verified 09/26/24 20:04 Penicillins Allergy Anaphylaxis Verified 09/26/24 20:04 quetiapine fumarate Allergy Itching, Verified 09/26/24 20:04 [From Seroquel] leg cramps rofecoxib [From Vioxx] Allergy Itching, Verified 09/26/24 20:04 leg cramps terfenadine [From Seldane] Allergy Rash/Hives Verified 09/26/24 20:04 vancomycin Allergy Rash/Hives/Swelling Verified 09/26/24 20:04 @IV site calcium carbonate [From DHEA] AdvReac Chest Pain Verified 09/26/24 20:04 calcium phosphate,dibasic AdvReac Chest Pain Verified 09/26/24 20:04 [From DHEA] clindamycin AdvReac muscle Verified 09/26/24 20:04 cramps clonidine AdvReac fast Verified 09/26/24 20:04 heartbeat, migraine dextromethorphan HBr AdvReac face/neck Verified 09/26/24 20:04 [From NyQuil] flushing diazepam [From Valium] AdvReac Nausea & Verified 09/26/24 20:04 Vomiting divalproex sodium AdvReac Nausea & Verified 09/26/24 20:04 [From Depakote] Vomiting doxylamine [From NyQuil] AdvReac face "beet Verified 09/26/24 20:04 red", elevated temp. ibuprofen [From Motrin] AdvReac abdominal Verified 09/26/24 20:04 & muscle cramps indomethacin [From Indocin] AdvReac Abdominal Verified 09/26/24 20:04 Pain,N/V ketorolac tromethamine AdvReac "built up Verified 09/26/24 20:04 [From Toradol] in system", had to be given something to reverse lorazepam [From Ativan] AdvReac Nausea & Verified 09/26/24 20:04 Vomiting memantine [From Namenda] AdvReac Itching Verified 09/26/24 20:04 metoclopramide HCl AdvReac muscle Verified 09/26/24 20:04 [From Reglan] cramps nortriptyline [From Pamelor] AdvReac Chest Pain Verified 09/26/24 20:04 prasterone (DHEA) [From DHEA] AdvReac Chest Pain Verified 09/26/24 20:04 prochlorperazine AdvReac leg Verified 09/26/24 20:04 [From Compazine] cramping propranolol AdvReac Chest Pain Verified 09/26/24 20:04 pseudoephedrine HCl AdvReac face "beet Verified 09/26/24 20:04 [From NyQuil] red", elevated temp. quetiapine [From Seroquel] AdvReac leg Verified 09/26/24 20:04 cramping sumatriptan [From Imitrex] AdvReac migrane Verified 09/26/24 20:04 sumatriptan succinate AdvReac migrane Verified 09/26/24 20:04 [From Imitrex] topiramate [From Topamax] AdvReac "built up Verified 09/26/24 20:04 in system", had to be given something to reverse tramadol AdvReac Nausea & Verified 09/26/24 20:04 Vomiting/LEG CRAMPS/HEART FLUTTERS trazodone AdvReac "built up Verified 09/26/24 20:04 in system", had to be given something to reverse zolpidem tartrate AdvReac "Became Verified 09/26/24 20:04 [From Ambien] violent with no memory" zonisamide [From Zonegran] AdvReac inability Verified 09/26/24 20:04 to eat steroids Allergy Swelling Uncoded 09/26/24 20:04 artificial sweetener AdvReac SEVERE Uncoded 09/26/24 20:04 MIGRAINE HEADACHE prosyn AdvReac Itching Uncoded 09/26/24 20:04 Review of Systems ROS Statement: Those systems with pertinent positive or pertinent negative responses have been documented in the HPI. ROS Other: All systems not noted in ROS Statement are negative. Past Medical History Past Medical History: Hyperlipidemia, Hypertension, Seizure Disorder, Supraventricular Tachycardia (SVT) Additional Past Medical History / Comment(s): Migraines, viral meningitis x3 as a child, 1995, 2000, chronic back pain, nerve blocks (neck and occipital nerve) 08/2016 and 12/2016. Last seizure 10/10/2020, "ABSENT SEIZURES. HX TACHYCARDIA, Complex PTSD. gillean barre History of Any Multi-Drug Resistant Organisms: None Reported Past Surgical History: Appendectomy, Section, Cholecystectomy, Heart Catheterization, Heart Catheterization With Stent, Hernia Repair, Hysterectomy, Orthopedic Surgery, Tonsillectomy, Tubal Ligation Additional Past Surgical History / Comment(s): Hiatal Hernia, umbilical hernia repair, left rotator cuff repair, bilateral knee scopes, pain clinic procedures- occipital nerve block. abd exploratory sx(endometreosis), 3 abd scopes 1981, 1989, 1991), lumbar puncture. EGD. nerve biopsy, salvalry gland biospy, Port (Right side 2018, left side 2020), Esophogeal dilation(2023) Past Anesthesia/Blood Transfusion Reactions: No Reported Reaction Additional Past Anesthesia/Blood Transfusion Reaction / Comment(s): Claustrophobic Date of Last Stent Placement:: 06/03/2022 Past Psychological History: Anxiety, Bipolar, Panic Disorder, PTSD Smoking Status: Former smoker Past Alcohol Use History: None Reported Past Drug Use History: None Reported - Past Family History Mother Family Medical History: Cancer, Dementia, Diabetes Mellitus, GERD/Reflux, Hyperlipidemia, Hypertension, Thyroid Disorder, Vascular Disorder Additional Family Medical History / Comment(s): CABG x2, stents Father History Unknown: Yes Family Medical History: No Reported History General Exam Limitations: no limitations General appearance: alert, in no apparent distress Head exam: Present: atraumatic, normocephalic, normal inspection Eye exam: Present: normal appearance, PERRL, EOMI. Absent: scleral icterus, conjunctival injection, periorbital swelling ENT exam: Present: normal exam, mucous membranes moist Neck exam: Present: normal inspection. Absent: tenderness, meningismus, lymphadenopathy Respiratory exam: Present: normal lung sounds bilaterally. Absent: respiratory distress, wheezes, rales, rhonchi, stridor Cardiovascular Exam: Present: regular rate, normal rhythm, normal heart sounds. Absent: systolic murmur, diastolic murmur, rubs, gallop, clicks GI/Abdominal exam: Present: soft, normal bowel sounds. Absent: distended, tenderness, guarding, rebound, rigid Extremities exam: Present: normal inspection, full ROM, normal capillary refill. Absent: tenderness, pedal edema, joint swelling, calf tenderness Back exam: Present: normal inspection Neurological exam: Present: alert, oriented X3, CN II-XII intact Psychiatric exam: Present: normal affect, normal mood Skin exam: Present: warm, dry, intact, normal color. Absent: rash Course Vital Signs 09/26/24 20:01 Temperature 97.9 F Pulse Rate 109 H Respiratory 18 Rate Blood Pressure 121/79 O2 Sat by Pulse 100 Oximetry - Reevaluation(s) Reevaluation #1: 09/26/24 23:02 Medical records reviewed Reevaluation #2: 09/26/24 23:02 Patient symptoms improved here in the ER Reevaluation #3: 09/26/24 23:02 Patient informed of results questions answered Reevaluation #4: Was pt. sent in by a medical professional or institution (SHANTHI Silver, SPUN PASTE MACHINE OPERATOR, urgent care, hospital, or halfway...) When possible be specific @ -no Did you speak to anyone other than the patient for history (EMS, parent, family, police, friend...)? What history was obtained from this source @ -no Did you review nursing and triage notes (agree or disagree)? Why? @ -agree Are old charts reviewed (outside hosp., previous admission, EMS record, old EKG, old radiological studies, urgent care reports/EKG's, halfway records)? Report findings @ -yes Differential Diagnosis (chest pain, altered mental status, abdominal pain women, abdominal pain men, vaginal bleeding, weakness, fever, dyspnea, syncope, headache, dizziness, GI bleed, back pain, seizure, CVA, palpatations, mental health, musculoskeletal)? @ -prior EKG interpreted by me (3pts min.). @ -yes X-rays interpreted by me (1pt min.). @ -yes negative for acute disease CT interpreted by me (1pt min.). @ -no U/S interpreted by me (1pt. min.). @ -no What testing was considered but not performed or refused? (CT, X-rays, U/S, labs)? Why? @ -none What meds were considered but not given or refused? Why? @ -none Did you discuss the management of the patient with other professionals (professionals i.e. , PA, SPUN PASTE MACHINE OPERATOR, lab, RT, psych nurse, social services coordinator, zipper setter chainstitch, teacher, trust officer, case filler)? Give summary @ -no Was smoking cessation discussed for >3mins.? @ -no Was critical care preformed (if so, how long)? @ -no Were there social determinants of health that impacted care today? How? (Homelessness, low income, unemployed, alcoholism, drug addiction, transportati on, low edu. Level, literacy, decrease access to med. care, alf, rehab)? @ -none Was there de-escalation of care discussed even if they declined (Discuss DNR or withdrawal of care, Hospice)? DNR status @ -no What co-morbidities impacted this encounter? (DM, HTN, Smoking, COPD, CAD, Cancer, CVA, ARF, Chemo, Hep., AIDS, mental health diagnosis, sleep apnea, morbid obesity)? @ -none Was patient admitted / discharged? Hospital course, mention meds given and route, prescriptions, significant lab abnormalities, going to OR and other pertinent info. @ - Undiagnosed new problem with uncertain prognosis? @ -no Drug Therapy requiring intensive monitoring for toxicity (Heparin, Nitro, Insulin, Cardizem)? @ -no Were any procedures done? @ -no Diagnosis/symptom? @ - Acute, or Chronic, or Acute on Chronic? @ -Acute Uncomplicated (without systemic symptoms) or Complicated (systemic symptoms)? @ -Complicated Side effects of treatment? @ -no Exacerbation, Progression, or Severe Exacerbation? @ -exacerbation Poses a threat to life or bodily function? How? (Chest pain, [place], PR, pneumonia, PE, COPD, DKA, ARF, appy, cholecystitis, CVA, Diverticulitis, Homicidal, Suicidal, threat to staff... and all critical care pts) @ -yes Reevaluation #5: Differential Chest Pain: Stable Angina, Unstable Angina, STEMI, NSTEMI Aortic Dissection, Pneumothorax, M usculoskeletal, Esophageal Spasm GERD, Cholecystitis, Pancreatitis, Zoster, this is not meant to be an all-inclusive list. Chest Pain MDM - MDM 54 female to the ER for evaluation of pain chest pain abdominal pain chronic pain. Pain is well relieved here in the ER patient can be discharged home Disposition Clinical Impression: Chest wall syndrome, Costochondritis, Chronic pain Disposition: HOME SELF-CARE Condition: Fair Instructions (If sedation given, give patient instructions): Chest Pain (ED), Costochondritis (ED) Is patient prescribed a controlled substance at d/c from ED?: No Referrals: José Reece MD [Primary Care Provider] - 1-2 days Time of Disposition: 22:20
[2024-09-26] MEDS: diphenhydrAMINE 50 MG/ML 1 ML VIAL IVP STA (23:14)
[2024-09-26] MEDS: HYDROmorphone 1 MG/ML 1 ML SYRINGE IVP STA (23:15)
[2024-09-26 23:18] VITALS: BP 155/98; PULSE 87
== END 2024-09-26 23:17 | disposition home or self-care (01) ==
LOC: EC 19:54
DX: R07.89 Other chest pain (principal); M94.0 Chondrocostal junction syndrome [Tietze]; G89.29 Other chronic pain; Z87.891 Personal history of nicotine dependence; Z88.0 Allergy status to penicillin; Z88.1 Allergy status to other antibiotic agents; Z88.2 Allergy status to sulfonamides; Z88.5 Allergy status to narcotic agent; Z88.6 Allergy status to analgesic agent; Z91.040 Latex allergy status; Z88.8 Allergy status to other drugs, medicaments and biological substances
CPT/HCPCS: 36415; 93005; 80053; 83735; 84484; 85025; 85610; 85730; 71046; 99284; 96374; 96375; J1200; J1171

== ENCOUNTER 2024-10-01 12:07 | Emergency (ER) | payer OTHER ==
[2024-10-01 12:12] VITALS: TEMP 98.6
--- NOTE | 2024-10-01 12:28 | ED ---
Skin/Abscess/FB HPI - General Source: patient, RN notes reviewed Mode of arrival: ambulatory Limitations: no limitations <Yaa Munoz - Last Filed: 10/01/24 12:27> <Silvia Martinez - Last Filed: 10/03/24 11:18> - General Chief complaint: Skin/Abscess/Foreign Body Stated complaint: Abd Pain Time Seen by Provider: 10/01/24 12:20 - History of Present Illness Initial comments: Quick Note: This is a 54-year-old female who presents to the emergency department for concerns of an abdominal wall abscess. States that she noticed this today. She was admitted here for this earlier this year and required drainage with IR and antibiotics. Denies any fevers or chills. (Yaa Munoz) 54-year-old female presents to the emergency department for evaluation of redness and swelling to the right side of her abdomen. She noticed this starting today. She reports that it is tender to touch. She admits to recent abdominal wall abscess that was drained here. She states that this feels similar. She denies any recent fever, chills. (Silvia Martinez) - Related Data Home Medications Medication Instructions Recorded Confirmed Omeprazole [PriLOSEC] 20 mg PO HS 12/15/20 05/09/24 Thiamine [Vitamin B-1] 100 mg PO DAILY 01/04/21 05/09/24 Atorvastatin [Lipitor] 40 mg PO HS 07/20/21 05/09/24 DULoxetine HCL [Cymbalta] 60 mg PO HS 07/20/21 05/09/24 Atogepant [Qulipta] 60 mg PO HS 06/03/22 05/09/24 Cyclobenzaprine [Flexeril] 10 mg PO TID PRN 06/03/22 05/09/24 HYDROcodone/APAP 10-325MG [[place] 1 tab PO TID 06/03/22 05/09/24 10-325] Aspirin 81 mg PO HS 08/29/22 05/09/24 Cyanocobalamin (Vitamin B-12) 1,000 mcg PO DAILY 09/07/23 05/09/24 [Vitamin B-12] Multivitamins, Thera [Multivitamin 1 tab PO HS 09/07/23 05/09/24 (formulary)] Zavegepant HCl [Zavzpret] 1 spray NASAL DAILY PRN 09/07/23 05/09/24 Potassium Chloride ER [K-Dur 10] 10 meq PO BID 12/10/23 05/09/24 QUEtiapine FUMARATE [SEROquel] 300 mg PO HS 01/10/24 05/09/24 Previous Rx's Medication Instructions Recorded Dicyclomine [Bentyl] 10 mg PO QID 7 Days #28 cap 03/12/24 Metoprolol Tartrate 25 mg PO BID #90 tab 03/16/24 Cephalexin [Keflex] 500 mg PO Q6HR 10 Days #40 cap 05/14/24 Cephalexin [Keflex] 500 mg PO Q6HR #40 cap 10/01/24 Sulfamethox-Tmp 800-160Mg [Bactrim 1 tab PO Q12HR #20 tab 10/01/24 DS 800-160 mg] Allergies Allergy/AdvReac Type Severity Reaction Status Date / Time dihydroergotamine Allergy Unknown Unknown Verified 10/01/24 12:12 [From Migranal] buprenorphine Allergy Rash/Hives Verified 10/01/24 12:12 gabapentin [From Neurontin] Allergy Itching/Swe Verified 10/01/24 12:12 lling latex Allergy Anaphylaxis Verified 10/01/24 12:12 naproxen [From Naprosyn] Allergy Anaphylaxis Verified 10/01/24 12:12 Penicillins Allergy Anaphylaxis Verified 10/01/24 12:12 quetiapine fumarate Allergy Itching, Verified 10/01/24 12:12 [From Seroquel] leg cramps rofecoxib [From Vioxx] Allergy Itching, Verified 10/01/24 12:12 leg cramps terfenadine [From Seldane] Allergy Rash/Hives Verified 10/01/24 12:12 vancomycin Allergy Rash/Hives/Swelling Verified 10/01/24 12:12 @IV site calcium carbonate [From DHEA] AdvReac Chest Pain Verified 10/01/24 12:12 calcium phosphate,dibasic AdvReac Chest Pain Verified 10/01/24 12:12 [From DHEA] clindamycin AdvReac muscle Verified 10/01/24 12:12 cramps clonidine AdvReac fast Verified 10/01/24 12:12 heartbeat, migraine dextromethorphan HBr AdvReac face/neck Verified 10/01/24 12:12 [From NyQuil] flushing diazepam [From Valium] AdvReac Nausea & Verified 10/01/24 12:12 Vomiting divalproex sodium AdvReac Nausea & Verified 10/01/24 12:12 [From Depakote] Vomiting doxylamine [From NyQuil] AdvReac face "beet Verified 10/01/24 12:12 red", elevated temp. ibuprofen [From Motrin] AdvReac abdominal Verified 10/01/24 12:12 & muscle cramps indomethacin [From Indocin] AdvReac Abdominal Verified 10/01/24 12:12 Pain,N/V ketorolac tromethamine AdvReac "built up Verified 10/01/24 12:12 [From Toradol] in system", had to be given something to reverse lorazepam [From Ativan] AdvReac Nausea & Verified 10/01/24 12:12 Vomiting memantine [From Namenda] AdvReac Itching Verified 10/01/24 12:12 metoclopramide HCl AdvReac muscle Verified 10/01/24 12:12 [From Reglan] cramps nortriptyline [From Pamelor] AdvReac Chest Pain Verified 10/01/24 12:12 prasterone (DHEA) [From DHEA] AdvReac Chest Pain Verified 10/01/24 12:12 prochlorperazine AdvReac leg Verified 10/01/24 12:12 [From Compazine] cramping propranolol AdvReac Chest Pain Verified 10/01/24 12:12 pseudoephedrine HCl AdvReac face "beet Verified 10/01/24 12:12 [From NyQuil] red", elevated temp. quetiapine [From Seroquel] AdvReac leg Verified 10/01/24 12:12 cramping sumatriptan [From Imitrex] AdvReac migrane Verified 10/01/24 12:12 sumatriptan succinate AdvReac migrane Verified 10/01/24 12:12 [From Imitrex] topiramate [From Topamax] AdvReac "built up Verified 10/01/24 12:12 in system", had to be given something to reverse tramadol AdvReac Nausea & Verified 10/01/24 12:12 Vomiting/LEG CRAMPS/HEART FLUTTERS trazodone AdvReac "built up Verified 10/01/24 12:12 in system", had to be given something to reverse zolpidem tartrate AdvReac "Became Verified 10/01/24 12:12 [From Ambien] violent with no memory" zonisamide [From Zonegran] AdvReac inability Verified 10/01/24 12:12 to eat steroids Allergy Swelling Uncoded 10/01/24 12:12 artificial sweetener AdvReac SEVERE Uncoded 10/01/24 12:12 MIGRAINE HEADACHE prosyn AdvReac Itching Uncoded 10/01/24 12:12 Review of Systems ROS Other: All systems not noted in ROS Statement are negative. <Yaa Munoz - Last Filed: 10/01/24 12:27> ROS Other: All systems not noted in ROS Statement are negative. <Silvia Martinez - Last Filed: 10/03/24 11:18> ROS Statement: Those systems with pertinent positive or pertinent negative responses have been documented in the HPI. Past Medical History Past Medical History: Hyperlipidemia, Hypertension, Seizure Disorder, Supraventricular Tachycardia (SVT) Additional Past Medical History / Comment(s): Migraines, viral meningitis x3 as a child, 1995, 2000, chronic back pain, nerve blocks (neck and occipital nerve) 08/2016 and 12/2016. Last seizure 10/10/2020, "ABSENT SEIZURES. HX TACHYCARDIA, Complex PTSD. gillean barre History of Any Multi-Drug Resistant Organisms: None Reported Past Surgical History: Appendectomy, Section, Cholecystectomy, Heart Catheterization, Heart Catheterization With Stent, Hernia Repair, Hysterectomy, Orthopedic Surgery, Tonsillectomy, Tubal Ligation Additional Past Surgical History / Comment(s): Hiatal Hernia, umbilical hernia repair, left rotator cuff repair, bilateral knee scopes, pain clinic procedures- occipital nerve block. abd exploratory sx(endometreosis), 3 abd scopes 1981, 1989, 1991), lumbar puncture. EGD. nerve biopsy, salvalry gland biospy, Port (Right side 2018, left side 2020), Esophogeal dilation(2023) Past Anesthesia/Blood Transfusion Reactions: No Reported Reaction Additional Past Anesthesia/Blood Transfusion Reaction / Comment(s): Claustrophobic Date of Last Stent Placement:: 06/03/2022 Past Psychological History: Anxiety, Bipolar, Panic Disorder, PTSD Smoking Status: Former smoker Past Alcohol Use History: None Reported Past Drug Use History: None Reported - Past Family History Mother Family Medical History: Cancer, Dementia, Diabetes Mellitus, GERD/Reflux, Hyperlipidemia, Hypertension, Thyroid Disorder, Vascular Disorder Additional Family Medical History / Comment(s): CABG x2, stents Father History Unknown: Yes Family Medical History: No Reported History <Yaa Munoz - Last Filed: 10/01/24 12:27> General Exam Limitations: no limitations <Yaa Munoz - Last Filed: 10/01/24 12:27> Limitations: no limitations General appearance: alert, in no apparent distress Head exam: Present: atraumatic, normocephalic, normal inspection Eye exam: Present: normal appearance, PERRL, EOMI. Absent: scleral icterus, conjunctival injection, periorbital swelling ENT exam: Present: normal exam, mucous membranes moist Respiratory exam: Present: normal lung sounds bilaterally. Absent: respiratory distress, wheezes, rales, rhonchi, stridor Cardiovascular Exam: Present: regular rate, normal rhythm, normal heart sounds. Absent: systolic murmur, diastolic murmur, rubs, gallop, clicks GI/Abdominal exam: Present: soft, normal bowel sounds, other (Well-demarcated area of erythema and induration to the right lower abdomen ). Absent: distended, tenderness, guarding, rebound, rigid Neurological exam: Present: alert, oriented X3 Psychiatric exam: Present: normal affect, normal mood Skin exam: Present: warm, dry, intact, erythema (See above). Absent: normal color <Silvia Martinez - Last Filed: 10/03/24 11:18> - General Exam Comments Initial Comments: Visual Physical Exam Vital signs reviewed General: Well-appearing, nontoxic, no acute distress. Head: Normocephalic, atraumatic Eyes: PERRLA, EOMI ENT: Airway patent Chest: Nonlabored breathing Skin: No visual rash, normal skin tone Neuro: Alert and oriented 3 Musculoskeletal: No gross abnormalities (Yaa Munoz) Course Vital Signs 10/01/24 10/01/24 10/01/24 12:09 16:12 19:21 Temperature 98.6 F Pulse Rate 103 H 97 98 Respiratory 20 18 17 Rate Blood Pressure 130/89 142/94 152/116 O2 Sat by Pulse 98 98 97 Oximetry Medical Decision Making <Yaa Munoz - Last Filed: 10/01/24 12:27> - Lab Data Result diagrams: 10/01/24 12:26 10/01/24 12:26 <Silvia Martinez - Last Filed: 10/03/24 11:18> - Medical Decision Making I performed the QuickNote portion of this chart. Signed Yaa Munoz PA-C. (Yaa Munoz) Was pt. sent in by a medical professional or institution ([facility]ANTHI Silver, [employer], urgent ca re, hospital, or [facility]...) When possible be specific @ -No Did you speak to anyone other than the patient for history (EMS, parent, family, police, friend...)? What history was obtained from this source @ -No Did you review nursing and triage notes (agree or disagree)? Why? @ -I reviewed and agree with nursing and triage notes Were old charts reviewed (outside hosp., previous admission, EMS record, old EKG, old radiological studies, urgent care reports/EKG's, [facility] records)? Report findings @ -No old charts were reviewed Differential Diagnosis (chest pain, altered mental status, abdominal pain women, abdominal pain men, vaginal bleeding, weakness, fever, dyspnea, syncope, headache, dizziness, GI bleed, back pain, seizure, CVA, palpatations, mental health, musculoskeletal)? @ -Cellulitis, abscess differential Abdominal Pain Women: Appendicitis, Cholecystitis, diverticulosis, ischemic bowel, pancreatitis, hepatitis, UTI, gastroenteritis, AAA, incarcerated hernia, bowel obstruction, constipation, inflammatory bowel, hepatitis, peptic ulcer disease, splenic infarction, perforated viscus, vulvitis, ovarian torsion, PID, kidney stone, placenta abruption, this is not meant to be an all-inclusive list EKG interpreted by me (3pts min.). @ -None X-rays interpreted by me (1pt min.). @ -None done CT interpreted by me (1pt min.). @ -None done U/S interpreted by me (1pt. min.). @ -None done What testing was considered but not performed or refused? (CT, X-rays, U/S, labs)? Why? @ -None What meds were considered but not given or refused? Why? @ -None Did you discuss the management of the patient with other professionals (professionals i.e. , PA, [employer], lab, RT, psych nurse, social service manager, senior sales consultant, teacher, traffic police officer, transplant case manager)? Give summary @ -No Was smoking cessation discussed for >3mins.? @ -No Was critical care preformed (if so, how long)? @ -No Were there social determinants of health that impacted care today? How? (Homelessness, low income, unemployed, alcoholism, drug addiction, transportation, low edu. Level, literacy, decrease access to med. care, [facility], rehab)? @ -No Was there de-escalation of care discussed even if they declined (Discuss DNR or withdrawal of care, Hospice)? DNR status @ -No What co-morbidities impacted this encounter? (DM, HTN, Smoking, COPD, CAD, Cancer, CVA, ARF, Chemo, Hep., AIDS, mental health diagnosis, sleep apnea, morbid obesity)? @ -None Was patient admitted / discharged? Hospital course, mention meds given and route, prescriptions, significant lab abnormalities, going to OR and other pertinent info. @ -Discharge. Patient presents emergency department for evaluation of possible abscess of her abdomen.Laboratory studies are obtained revealing no significant leukocytosis, hemoglobin 12.4; CMP reveals sodium 139, potassium 3.3 which is replaced orally. No significant lactic acidosis. CT of the abdomen pelvis reveals findings consistent with abdominal wall cellulitis and possible developing phlegmon changes. Patient will be started on antibiotics. She will be discharged home. She is understanding agreeable to plan. Patient stable at time of discharge. Case discussed with Dr. Bergeron. Undiagnosed new problem with uncertain prognosis? @ -No Drug Therapy requiring intensive monitoring for toxicity (Heparin, Nitro, Insulin, Cardizem)? @ -No Were any procedures done? @ -No Diagnosis/symptom? @ -Abdominal wall cellulitis Acute, or Chronic, or Acute on Chronic? @ -Acute Uncomplicated (without systemic symptoms) or Complicated (systemic symptoms)? @ -Uncomplicated Side effects of treatment? @ -No Exacerbation, Progression, or Severe Exacerbation? @ -No Poses a threat to life or bodily function? How? (Chest pain, [place], [place], pneumonia, PE, COPD, DKA, ARF, appy, cholecystitis, CVA, Diverticulitis, Homicidal, Suicidal, threat to staff... and all critical care pts) @ -No (Silvia Martinez) - Lab Data Lab Results 10/01/24 10/01/24 10/01/24 Range/Units 12:26 12:26 12:26 WBC 10.20 H (4.50-10.00) 10*3/uL RBC 3.96 L (4.10-5.20) 10*6/uL Hgb 12.4 (12.0-15.0) g/dL Hct 36.9 L (37.2-46.3) % MCV 93.2 (80.0-97.0) fL MCH 31.3 (27.0-32.0) pg MCHC 33.6 (32.0-37.0) g/dL Plt Count 301 (140-440) 10*3/uL MPV 10.9 (9.5-12.2) fL Immature Gran % (Auto) 0.2 % Neutrophils % 84.0 % Lymphocytes % 10.1 % Monocytes % 5.2 % Eosinophils % 0.2 % Basophils % 0.3 % Immature Gran # 0.02 (0.00-0.04) 10*3/uL Neutrophils # 8.57 H (1.80-7.70) 10*3/uL Lymphocytes # 1.03 (0.90-5.00) 10*3/uL Monocytes # 0.53 (0.20-1.00) 10*3/uL Eosinophils # 0.02 L (0.04-0.35) 10*3/uL Basophils # 0.03 (0.00-0.10) 10*3/uL Sodium 139 (137-145) mmol/L Potassium 3.3 L (3.5-5.1) mmol/L Chloride 103 (98-107) mmol/L Carbon Dioxide 26 (22-30) mmol/L Anion Gap 10 mmol/L BUN 5 L (7-17) mg/dL Creatinine 0.71 (0.52-1.04) mg/dL Est GFR (CKD-EPI)AfAm >90 (>60 ml/min/1.73 sqM) Est GFR (CKD-EPI)NonAf >90 (>60 ml/min/1.73 sqM) Glucose 104 H (74-99) mg/dL Plasma Lactic Acid Ed 1.2 (0.7-2.0) mmol/L Calcium 9.4 (8.4-10.2) mg/dL Total Bilirubin 0.5 (0.2-1.3) mg/dL AST 21 (14-36) U/L ALT 18 (4-34) U/L Alkaline Phosphatase 140 H (38-126) U/L C-Reactive Protein 0.8 (<1.0) mg/dL Total Protein 6.5 (6.3-8.2) g/dL Albumin 3.9 (3.5-5.0) g/dL Disposition <Yaa Munoz - Last Filed: 10/01/24 12:27> Is patient prescribed a controlled substance at d/c from ED?: No <Silvia Martinez - Last Filed: 10/03/24 11:18> Clinical Impression: Abdominal wall cellulitis Disposition: HOME SELF-CARE Condition: Stable Instructions (If sedation given, give patient instructions): Cellulitis (ED) Additional Instructions: Please bulk picker your antibiotics and take to completion. Follow-up with your doctor. Return to the emergency department for new or worsening symptoms. Prescriptions: Sulfamethox-Tmp 800-160Mg [Bactrim DS 800-160 mg] 1 tab PO Q12HR #20 tab Cephalexin [Keflex] 500 mg PO Q6HR #40 cap Referrals: José Reece MD [Primary Care Provider] - 1-2 days
[2024-10-01 16:23] LABS: Basophils # (A) 0.03 10*3/uL (0.00-0.10); Basophils % (A) 0.3 %; Eosinophils # (A) 0.02 10*3/uL (0.04-0.35); Eosinophils % (A) 0.2 %; HCT 36.9 % (37.2-46.3); HGB 12.4 g/dL (12.0-15.0); Lymphocytes # (A) 1.03 10*3/uL (0.90-5.00); Lymphocytes % (A) 10.1 %; MCH 31.3 pg (27.0-32.0); MCHC 33.6 g/dL (32.0-37.0); MCV 93.2 fL (80.0-97.0); Mean Platelet Volume 10.9 fL (9.5-12.2); Monocytes # (A) 0.53 10*3/uL (0.20-1.00); Monocytes % (A) 5.2 %; Neutrophils # (A) 8.57 10*3/uL (1.80-7.70); Platelet Count 301 10*3/uL (140-440); RBC 3.96 10*6/uL (4.10-5.20); RDW 14.3 % (11.5-14.5)
[2024-10-01 16:43] LABS: ALT 18 U/L (4-34); AST 21 U/L (14-36); African American GFR (CKD) >90 (>60 ml/min/1.73 sqM); Albumin 3.9 g/dL (3.5-5.0); Alkaline Phosphatase 140 U/L (38-126); Anion Gap 10 mmol/L; Blood Urea Nitrogen 5 mg/dL (7-17); C Reactive Protein 0.8 mg/dL (<1.0); Calcium 9.4 mg/dL (8.4-10.2); Carbon Dioxide 26 mmol/L (22-30); Chloride 103 mmol/L (98-107); Glucose 104 mg/dL (74-99); Non-African American GFR(CKD) >90 (>60 ml/min/1.73 sqM); Potassium 3.3 mmol/L (3.5-5.1); Sodium 139 mmol/L (137-145); Total Bilirubin 0.5 mg/dL (0.2-1.3); Total Protein 6.5 g/dL (6.3-8.2)
[2024-10-01] MEDS: ONDANSETRON 4 MG/2 ML VIAL IVP STA (16:49)
[2024-10-01] MEDS: HYDROmorphone 1 MG/ML 1 ML SYRINGE IVP STA (16:49)
--- NOTE | 2024-10-01 17:47 | CT ---
EXAMINATION TYPE: CT abdomen pelvis w con DATE OF EXAM: 10/01/2024 5:33 PM COMPARISON: CT abdomen/pelvis 07/11/2024. CLINICAL INDICATION: Female, 54 years old with history of abscess; RLQ pain TECHNIQUE: Axial CT abdomen pelvis w con;Sagittal and coronal reformats were created on a separate w orkstation. Contrast used:100 ml mL of Isovue 300 with IV Contrast, (none if empty) Oral contrast used: without Oral Contrast (none if empty) CT DLP: 835.7 mGycm, Automated exposure control for dose reduction was used. FINDINGS: LOWER CHEST: Unremarkable ABDOMEN LIVER: Hypoattenuation in the left hepatic lobe which is slightly more pronounced compared to prior s tudies. GALLBLADDER AND BILE DUCTS: The gallbladder is surgically absent. PANCREAS: Unremarkable. SPLEEN: Unremarkable. ADRENAL GLANDS: Unremarkable. KIDNEYS AND URETERS: No evidence of hydronephrosis or renal calculus. The ureters are unremarkable. PELVIS BLADDER: No evidence for wall thickening or mass given limitations of exam. REPRODUCTIVE: Unremarkable. ABDOMEN & PELVIS STOMACH AND BOWEL: Stomach and duodenum are unremarkable. No evidence of bowel obstruction. Terminal ileum appears unremarkable. Appendix not discretely visualized but there are no secondary findings t o suggest acute appendicitis. PERITONEUM/RETROPERITONEUM: No evidence of pneumoperitoneum or free fluid. VASCULATURE: No evidence of aortic aneurysm. MUSCULOSKELETAL: No acute osseous abnormalities LYMPH NODES: No gross evidence for lymphadenopathy. SOFT TISSUE/ABDOMINAL WALL: Nonspecific subcutaneous stranding in the right lower quadrant anterior a bdominal wall (56/94). No drainable fluid collection/abscess. IMPRESSION: No drainable fluid collection/abscess. Subcutaneous stranding in the right lower quadrant anterior ab dominal wall suggesting cellulitis and possible developing phlegmon changes. [facility], , 10/01/2024 5:44 PM
[2024-10-01] MEDS: HYDROmorphone 0.5 MG/0.5 ML SYRINGE IVP STA (19:13)
[2024-10-01] MEDS: diphenhydrAMINE 50 MG/ML 1 ML VIAL IVP STA (19:14)
[2024-10-01] MEDS: SULFAMETHOX-TMP 800-160MG 1 EACH TAB PO STA (19:14)
[2024-10-01] MEDS: POTASSIUM CHLORIDE ER 20 MEQ TAB.ER PO STA (19:14)
[2024-10-01] MEDS: CEPHALEXIN 500 MG CAP PO STA (19:14)
[2024-10-01 19:22] VITALS: BP 152/116; PULSE 98; RESP 17
== END 2024-10-01 19:39 | disposition home or self-care (01) ==
LOC: EC 12:07
DX: L03.311 Cellulitis of abdominal wall (principal); Z87.891 Personal history of nicotine dependence; Z88.0 Allergy status to penicillin; Z88.1 Allergy status to other antibiotic agents; Z88.2 Allergy status to sulfonamides; Z88.5 Allergy status to narcotic agent; Z88.6 Allergy status to analgesic agent; Z88.8 Allergy status to other drugs, medicaments and biological substances; Z91.040 Latex allergy status
CPT/HCPCS: 36415; 80053; 83605; 85025; 86140; 74177; 99283; 96374; 96375 ×2; 96376; J1200; J2405; J1171 ×2; Q9967

== ENCOUNTER 2024-10-05 02:11 | Emergency (ER) | payer OTHER ==
[2024-10-05 02:21] VITALS: TEMP 98.2
--- NOTE | 2024-10-05 02:38 | ED ---
General Adult HPI - General Chief complaint: Headache Stated complaint: Migraine Time Seen by Provider: 10/05/24 02:35 Source: patient Mode of arrival: ambulatory Limitations: no limitations - History of Present Illness Initial comments: 54-year-old female presenting with chief complaint of headache. Patient has history of migraines, this feels like one of her typical migraines. States that she has tried her regular medications at home which have not helped. She denies any head injury. No fever. She does admit to nausea, vomiting, light sensitiv ity. - Related Data Home Medications Medication Instructions Recorded Confirmed Omeprazole [PriLOSEC] 20 mg PO HS 12/15/20 05/09/24 Thiamine [Vitamin B-1] 100 mg PO DAILY 01/04/21 05/09/24 Atorvastatin [Lipitor] 40 mg PO HS 07/20/21 05/09/24 DULoxetine HCL [Cymbalta] 60 mg PO HS 07/20/21 05/09/24 Atogepant [Qulipta] 60 mg PO HS 06/03/22 05/09/24 Cyclobenzaprine [Flexeril] 10 mg PO TID PRN 06/03/22 05/09/24 HYDROcodone/APAP 10-325MG [[place] 1 tab PO TID 06/03/22 05/09/24 10-325] Aspirin 81 mg PO HS 08/29/22 05/09/24 Cyanocobalamin (Vitamin B-12) 1,000 mcg PO DAILY 09/07/23 05/09/24 [Vitamin B-12] Multivitamins, Thera [Multivitamin 1 tab PO HS 09/07/23 05/09/24 (formulary)] Zavegepant HCl [Zavzpret] 1 spray NASAL DAILY PRN 09/07/23 05/09/24 Potassium Chloride ER [K-Dur 10] 10 meq PO BID 12/10/23 05/09/24 QUEtiapine FUMARATE [SEROquel] 300 mg PO HS 01/10/24 05/09/24 Previous Rx's Medication Instructions Recorded Dicyclomine [Bentyl] 10 mg PO QID 7 Days #28 cap 03/12/24 Metoprolol Tartrate 25 mg PO BID #90 tab 03/16/24 Cephalexin [Keflex] 500 mg PO Q6HR 10 Days #40 cap 05/14/24 Cephalexin [Keflex] 500 mg PO Q6HR #40 cap 10/01/24 Sulfamethox-Tmp 800-160Mg [Bactrim 1 tab PO Q12HR #20 tab 10/01/24 DS 800-160 mg] Allergies Allergy/AdvReac Type Severity Reaction Status Date / Time dihydroergotamine Allergy Unknown Unknown Verified 10/05/24 02:19 [From Migranal] buprenorphine Allergy Rash/Hives Verified 10/05/24 02:19 gabapentin [From Neurontin] Allergy Itching/Swe Verified 10/05/24 02:19 lling latex Allergy Anaphylaxis Verified 10/05/24 02:19 naproxen [From Naprosyn] Allergy Anaphylaxis Verified 10/05/24 02:19 Penicillins Allergy Anaphylaxis Verified 10/05/24 02:19 quetiapine fumarate Allergy Itching, Verified 10/05/24 02:19 [From Seroquel] leg cramps rofecoxib [From Vioxx] Allergy Itching, Verified 10/05/24 02:19 leg cramps terfenadine [From Seldane] Allergy Rash/Hives Verified 10/05/24 02:19 vancomycin Allergy Rash/Hives/Swelling Verified 10/05/24 02:19 @IV site calcium carbonate [From DHEA] AdvReac Chest Pain Verified 10/05/24 02:19 calcium phosphate,dibasic AdvReac Chest Pain Verified 10/05/24 02:19 [From DHEA] clindamycin AdvReac muscle Verified 10/05/24 02:19 cramps clonidine AdvReac fast Verified 10/05/24 02:19 heartbeat, migraine dextromethorphan HBr AdvReac face/neck Verified 10/05/24 02:19 [From NyQuil] flushing diazepam [From Valium] AdvReac Nausea & Verified 10/05/24 02:19 Vomiting divalproex sodium AdvReac Nausea & Verified 10/05/24 02:19 [From Depakote] Vomiting doxylamine [From NyQuil] AdvReac face "beet Verified 10/05/24 02:19 red", elevated temp. ibuprofen [From Motrin] AdvReac abdominal Verified 10/05/24 02:19 & muscle cramps indomethacin [From Indocin] AdvReac Abdominal Verified 10/05/24 02:19 Pain,N/V ketorolac tromethamine AdvReac "built up Verified 10/05/24 02:19 [From Toradol] in system", had to be given something to reverse lorazepam [From Ativan] AdvReac Nausea & Verified 10/05/24 02:19 Vomiting memantine [From Namenda] AdvReac Itching Verified 10/05/24 02:19 metoclopramide HCl AdvReac muscle Verified 10/05/24 02:19 [From Reglan] cramps nortriptyline [From Pamelor] AdvReac Chest Pain Verified 10/05/24 02:19 prasterone (DHEA) [From DHEA] AdvReac Chest Pain Verified 10/05/24 02:19 prochlorperazine AdvReac leg Verified 10/05/24 02:19 [From Compazine] cramping propranolol AdvReac Chest Pain Verified 10/05/24 02:19 pseudoephedrine HCl AdvReac face "beet Verified 10/05/24 02:19 [From NyQuil] red", elevated temp. quetiapine [From Seroquel] AdvReac leg Verified 10/05/24 02:19 cramping sumatriptan [From Imitrex] AdvReac migrane Verified 10/05/24 02:19 sumatriptan succinate AdvReac migrane Verified 10/05/24 02:19 [From Imitrex] topiramate [From Topamax] AdvReac "built up Verified 10/05/24 02:19 in system", had to be given something to reverse tramadol AdvReac Nausea & Verified 10/05/24 02:19 Vomiting/LEG CRAMPS/HEART FLUTTERS trazodone AdvReac "built up Verified 10/05/24 02:19 in system", had to be given something to reverse zolpidem tartrate AdvReac "Became Verified 10/05/24 02:19 [From Ambien] violent with no memory" zonisamide [From Zonegran] AdvReac inability Verified 10/05/24 02:19 to eat steroids Allergy Swelling Uncoded 10/05/24 02:19 artificial sweetener AdvReac SEVERE Uncoded 10/05/24 02:19 MIGRAINE HEADACHE prosyn AdvReac Itching Uncoded 10/05/24 02:19 Review of Systems ROS Statement: Those systems with pertinent positive or pertinent negative responses have been documented in the HPI. ROS Other: All systems not noted in ROS Statement are negative. Past Medical History Past Medical History: Hyperlipidemia, Hypertension, Seizure Disorder, Supraventricular Tachycardia (SVT) Additional Past Medical History / Comment(s): Migraines, viral meningitis x3 as a child, 1995, 2000, chronic back pain, nerve blocks (neck and occipital nerve) 08/2016 and 12/2016. Last seizure 10/10/2020, "ABSENT SEIZURES. HX TACHYCARDIA, Complex PTSD. gillean barre History of Any Multi-Drug Resistant Organisms: None Reported Past Surgical History: Appendectomy, Section, Cholecystectomy, Heart Catheterization, Heart Catheterization With Stent, Hernia Repair, Hysterectomy, Orthopedic Surgery, Tonsillectomy, Tubal Ligation Additional Past Surgical History / Comment(s): Hiatal Hernia, umbilical hernia repair, left rotator cuff repair, bilateral knee scopes, pain clinic procedures- occipital nerve block. abd exploratory sx(endometreosis), 3 abd scopes 1981, 1989, 1991), lumbar puncture. EGD. nerve biopsy, salvalry gland biospy, Port (Right side 2018, left side 2020), Esophogeal dilation(2023) Past Anesthesia/Blood Transfusion Reactions: No Reported Reaction Additional Past Anesthesia/Blood Transfusion Reaction / Comment(s): Claustrophobic Date of Last Stent Placement:: 06/03/2022 Past Psychological History: Anxiety, Bipolar, Panic Disorder, PTSD Smoking Status: Former smoker Past Alcohol Use History: None Reported Past Drug Use History: None Reported - Past Family History Mother Family Medical History: Cancer, Dementia, Diabetes Mellitus, GERD/Reflux, Hyperlipidemia, Hypertension, Thyroid Disorder, Vascular Disorder Additional Family Medical History / Comment(s): CABG x2, stents Father History Unknown: Yes Family Medical History: No Reported History General Exam Limitations: no limitations General appearance: alert, in no apparent distress Head exam: Present: atraumatic, normocephalic, normal inspection Eye exam: Present: normal appearance Neck exam: Present: normal inspection. Absent: meningismus Respiratory exam: Absent: respiratory distress Cardiovascular Exam: Present: regular rate Neurological exam: Present: alert, oriented X3 Expanded Eye Response: (4) open spontaneously Motor Response: (6) obeys commands Verbal Response: (5) oriented Mauri Total: 15 Psychiatric exam: Present: normal affect, normal mood Skin exam: Present: warm, dry, normal color Course Vital Signs 10/05/24 10/05/24 02:20 02:58 Temperature 98.2 F Pulse Rate 97 88 Respiratory 18 17 Rate Blood Pressure 154/117 137/98 O2 Sat by Pulse 98 98 Oximetry Medical Decision Making - Medical Decision Making Was pt. sent in by a medical professional or institution (, SHANTHI, INTERNATIONAL BANK MANAGER, urgent care, hospital, or detention...) When possible be specific @ -No Did you speak to anyone other than the patient for history (EMS, parent, family, police, friend...)? What history was obtained from this source @ -No Did you review nursing and triage notes (agree or disagree)? Why? @ -I reviewed and agree with nursing and triage notes Were old charts reviewed (outside hosp., previous admission, EMS record, old EKG, old radiological studies, urgent care reports/EKG's, detention records)? Report findings @ -No old charts were reviewed Differential Diagnosis (chest pain, altered mental status, abdominal pain women, abdominal pain men, vaginal bleeding, weakness, fever, dyspnea, syncope, headache, dizziness, GI bleed, back pain, seizure, CVA, palpatations, mental health, musculoskeletal)? @ -MDM Differential Headache: Migraine, tension, cluster, carbon monoxide, central venous thrombosis, pension karma temporal arteritis, acute closure glaucoma, intercranial hemorrhage, mastoiditis, sinusitis, head injury… this is not meant to be an all-inclusive list. EKG interpreted by me (3pts min.). @ -As above X-rays interpreted by me (1pt min.). @ -None done CT interpreted by me (1pt min.). @ -None done U/S interpreted by me (1pt. min.). @ -None done What testing was considered but not performed or refused? (CT, X-rays, U/S, labs)? Why? @ -None What meds were considered but not given or refused? Why? @ -None Did you discuss the management of the patient with other professionals (professionals i.e. , SHANTHI, INTERNATIONAL BANK MANAGER, lab, RT, psych nurse, medical social consultant, certified teacher assistant, teacher, trust officer, rifle case repairer)? Give summary @ -No Was smoking cessation discussed for >3mins.? @ -No Was critical care preformed (if so, how long)? @ -No Were there social determinants of health that impacted care today? How? (Homelessness, low income, unemployed, alcoholism, drug addiction, transportation, low edu. Level, literacy, decrease access to med. care, residential, rehab)? @ -No Was there de-escalation of care discussed even if they declined (Discuss DNR or withdrawal of care, Hospice)? DNR status @ -No What co-morbidities impacted this encounter? (DM, HTN, Smoking, COPD, CAD, Cancer, CVA, ARF, Chemo, Hep., AIDS, mental health diagnosis, sleep apnea, morbid obesity)? @ -None Was patient admitted / discharged? Hospital course, mention meds given and route, prescriptions, significant lab abnormalities, going to OR and other pertinent info. @ -54-year-old female presenting chief complaint of migraine headache. History of migraines and this feels typical with her chronic migraines. GCS 15. Patient treated with pain medication. Discharge. Follow-up with PCP. Report back to ER with any new or worsening symptoms. Discussed return parameters and answered all questions. Patient conveyed verbal understanding and agreed to the plan. I discussed this case in detail with my attending Dr. Eller Undiagnosed new problem with uncertain prognosis? @ -No Drug Therapy requiring intensive monitoring for toxicity (Heparin, Nitro, Insulin, Cardizem)? @ -No Were any procedures done? @ -No Diagnosis/symptom? @ -Migraine Acute, or Chronic, or Acute on Chronic? @ -Acute on chronic Uncomplicated (without systemic symptoms) or Complicated (systemic symptoms)? @ -Uncomplicated Side effects of treatment? @ -No Exacerbation, Progression, or Severe Exacerbation? @ -No Poses a threat to life or bodily function? How? (Chest pain, USA, CT, pneumonia, PE, COPD, DKA, ARF, appy, cholecystitis, CVA, Diverticulitis, Homicidal, Suicidal, threat to staff... and all critical care pts) @ -Unlikely Disposition Clinical Impression: Migraine Disposition: HOME SELF-CARE Condition: Good Instructions (If sedation given, give patient instructions): Acute Headache (ED) Additional Instructions: Follow-up with PCP. Report back to ER with any new or worsening symptoms. Is patient prescribed a controlled substance at d/c from ED?: No Referrals: None,Stated [Primary Care Provider] - 1-2 days Time of Disposition: 02:38
[2024-10-05] MEDS: HYDROmorphone 1 MG/ML 1 ML SYRINGE IM STA (02:56)
[2024-10-05 03:00] VITALS: BP 137/98; PULSE 88; RESP 17
== END 2024-10-05 03:04 | disposition home or self-care (01) ==
LOC: EC 02:11
DX: G43.909 Migraine, unspecified, not intractable, without status migrainosus (principal); Z87.891 Personal history of nicotine dependence; Z88.0 Allergy status to penicillin; Z88.6 Allergy status to analgesic agent; Z88.8 Allergy status to other drugs, medicaments and biological substances; Z88.5 Allergy status to narcotic agent; Z88.2 Allergy status to sulfonamides; Z91.040 Latex allergy status; Z88.1 Allergy status to other antibiotic agents
CPT/HCPCS: 99283; 96372; J1171

== ENCOUNTER 2024-10-17 17:23 | Emergency (ER) | payer OTHER ==
--- NOTE | 2024-10-17 19:06 | XR ---
EXAMINATION TYPE: XR chest 2V DATE OF EXAM: 10/17/2024 6:54 PM COMPARISON: Chest radiographs from 09/26/2024. CLINICAL INDICATION: Female, 54 years old with history of chest pain; [facility] TECHNIQUE: XR chest 2V Frontal and lateral views of the chest. FINDINGS: Lungs/Pleura: There is no evidence of pleural effusion, focal consolidation, or pneumothorax. Pulmonary vascularity: Unremarkable. Heart/mediastinum: Cardiomediastinal silhouette is unremarkable. Musculoskeletal: No acute osseous pathology. Other findings: None Lines/Tubes: [id number] projecting over the left hemithorax with distal tip at the cavoatrial junction. IMPRESSION: No acute cardiopulmonary disease/process. [facility], , 10/17/2024 7:03 PM
[2024-10-17] MEDS: ONDANSETRON 4 MG/2 ML VIAL IVP STA ×2 (19:34→22:21)
[2024-10-17] MEDS: SODIUM CHLORIDE 0.9% 1,000 ML IV STA (19:36)
--- NOTE | 2024-10-17 19:54 | ED ---
Chest Pain HPI - General Chief Complaint: Chest Pain Stated Complaint: vomiting,chest pain Time Seen by Provider: 10/17/24 19:54 Source: patient, RN notes reviewed Mode of arrival: ambulatory Limitations: no limitations - History of Present Illness Initial Comments: 54-year-old female presenting for chest pain x 3 days with nausea/vomiting. States she has chronic abdominal pain and chest pain with chronic nausea and vomiting. States she is unable to keep anything down. Denies blood thinners. Denies shortness of breath. Pain does not radiate. - Related Data Home Medications Medication Instructions Recorded Confirmed Omeprazole [PriLOSEC] 20 mg PO HS 12/15/20 05/09/24 Thiamine [Vitamin B-1] 100 mg PO DAILY 01/04/21 05/09/24 Atorvastatin [Lipitor] 40 mg PO HS 07/20/21 05/09/24 DULoxetine HCL [Cymbalta] 60 mg PO HS 07/20/21 05/09/24 Atogepant [Qulipta] 60 mg PO HS 06/03/22 05/09/24 Cyclobenzaprine [Flexeril] 10 mg PO TID PRN 06/03/22 05/09/24 HYDROcodone/APAP 10-325MG [[place] 1 tab PO TID 06/03/22 05/09/24 10-325] Aspirin 81 mg PO HS 08/29/22 05/09/24 Cyanocobalamin (Vitamin B-12) 1,000 mcg PO DAILY 09/07/23 05/09/24 [Vitamin B-12] Multivitamins, Thera [Multivitamin 1 tab PO HS 09/07/23 05/09/24 (formulary)] Zavegepant HCl [Zavzpret] 1 spray NASAL DAILY PRN 09/07/23 05/09/24 Potassium Chloride ER [K-Dur 10] 10 meq PO BID 12/10/23 05/09/24 QUEtiapine FUMARATE [SEROquel] 300 mg PO HS 01/10/24 05/09/24 Previous Rx's Medication Instructions Recorded Dicyclomine [Bentyl] 10 mg PO QID 7 Days #28 cap 03/12/24 Metoprolol Tartrate 25 mg PO BID #90 tab 03/16/24 Cephalexin [Keflex] 500 mg PO Q6HR 10 Days #40 cap 05/14/24 Cephalexin [Keflex] 500 mg PO Q6HR #40 cap 10/01/24 Sulfamethox-Tmp 800-160Mg [Bactrim 1 tab PO Q12HR #20 tab 10/01/24 DS 800-160 mg] Allergies Allergy/AdvReac Type Severity Reaction Status Date / Time dihydroergotamine Allergy Unknown Unknown Verified 10/05/24 02:19 [From Migranal] buprenorphine Allergy Rash/Hives Verified 10/05/24 02:19 gabapentin [From Neurontin] Allergy Itching/Swe Verified 10/05/24 02:19 lling latex Allergy Anaphylaxis Verified 10/05/24 02:19 naproxen [From Naprosyn] Allergy Anaphylaxis Verified 10/05/24 02:19 Penicillins Allergy Anaphylaxis Verified 10/05/24 02:19 quetiapine fumarate Allergy Itching, Verified 10/05/24 02:19 [From Seroquel] leg cramps rofecoxib [From Vioxx] Allergy Itching, Verified 10/05/24 02:19 leg cramps terfenadine [From Seldane] Allergy Rash/Hives Verified 10/05/24 02:19 vancomycin Allergy Rash/Hives/Swelling Verified 10/05/24 02:19 @IV site calcium carbonate [From DHEA] AdvReac Chest Pain Verified 10/05/24 02:19 calcium phosphate,dibasic AdvReac Chest Pain Verified 10/05/24 02:19 [From DHEA] clindamycin AdvReac muscle Verified 10/05/24 02:19 cramps clonidine AdvReac fast Verified 10/05/24 02:19 heartbeat, migraine dextromethorphan HBr AdvReac face/neck Verified 10/05/24 02:19 [From NyQuil] flushing diazepam [From Valium] AdvReac Nausea & Verified 10/05/24 02:19 Vomiting divalproex sodium AdvReac Nausea & Verified 10/05/24 02:19 [From Depakote] Vomiting doxylamine [From NyQuil] AdvReac face "beet Verified 10/05/24 02:19 red", elevated temp. ibuprofen [From Motrin] AdvReac abdominal Verified 10/05/24 02:19 & muscle cramps indomethacin [From Indocin] AdvReac Abdominal Verified 10/05/24 02:19 Pain,N/V ketorolac tromethamine AdvReac "built up Verified 10/05/24 02:19 [From Toradol] in system", had to be given something to reverse lorazepam [From Ativan] AdvReac Nausea & Verified 10/05/24 02:19 Vomiting memantine [From Namenda] AdvReac Itching Verified 10/05/24 02:19 metoclopramide HCl AdvReac muscle Verified 10/05/24 02:19 [From Reglan] cramps nortriptyline [From Pamelor] AdvReac Chest Pain Verified 10/05/24 02:19 prasterone (DHEA) [From DHEA] AdvReac Chest Pain Verified 10/05/24 02:19 prochlorperazine AdvReac leg Verified 10/05/24 02:19 [From Compazine] cramping propranolol AdvReac Chest Pain Verified 10/05/24 02:19 pseudoephedrine HCl AdvReac face "beet Verified 10/05/24 02:19 [From NyQuil] red", elevated temp. quetiapine [From Seroquel] AdvReac leg Verified 10/05/24 02:19 cramping sumatriptan [From Imitrex] AdvReac migrane Verified 10/05/24 02:19 sumatriptan succinate AdvReac migrane Verified 10/05/24 02:19 [From Imitrex] topiramate [From Topamax] AdvReac "built up Verified 10/05/24 02:19 in system", had to be given something to reverse tramadol AdvReac Nausea & Verified 10/05/24 02:19 Vomiting/LEG CRAMPS/HEART FLUTTERS trazodone AdvReac "built up Verified 10/05/24 02:19 in system", had to be given something to reverse zolpidem tartrate AdvReac "Became Verified 10/05/24 02:19 [From Ambien] violent with no memory" zonisamide [From Zonegran] AdvReac inability Verified 10/05/24 02:19 to eat steroids Allergy Swelling Uncoded 10/05/24 02:19 artificial sweetener AdvReac SEVERE Uncoded 10/05/24 02:19 MIGRAINE HEADACHE prosyn AdvReac Itching Uncoded 10/05/24 02:19 Review of Systems ROS Statement: Those systems with pertinent positive or pertinent negative responses have been documented in the HPI. ROS Other: All systems not noted in ROS Statement are negative. EKG Findings - EKG Results: EKG: interpreted by [facility] (EKG reveals sinus tachycardia with no acute ST changes. Ventricular rate 123 bpm, NM interval 133, QRS duration 93, QT/QTc 356/429) Past Medical History Past Medical History: Hyperlipidemia, Hypertension, Seizure Disorder, Supraventricular Tachycardia (SVT) Additional Past Medical History / Comment(s): Migraines, viral meningitis x3 as a child, 1995, 2000, chronic back pain, nerve blocks (neck and occipital nerve) 08/2016 and 12/2016. Last seizure 10/10/2020, "ABSENT SEIZURES. HX TACHYCARDIA, Complex PTSD. gillean barre History of Any Multi-Drug Resistant Organisms: None Reported Past Surgical History: Appendectomy, Section, Cholecystectomy, Heart Catheterization, Heart Catheterization With Stent, Hernia Repair, Hysterectomy, Orthopedic Surgery, Tonsillectomy, Tubal Ligation Additional Past Surgical History / Comment(s): Hiatal Hernia, umbilical hernia repair, left rotator cuff repair, bilateral knee scopes, pain clinic procedures- occipital nerve block. abd exploratory sx(endometreosis), 3 abd scopes 1981, 1989, 1991), lumbar puncture. EGD. nerve biopsy, salvalry gland biospy, Port (Right side 2018, left side 2020), Esophogeal dilation(2023) Past Anesthesia/Blood Transfusion Reactions: No Reported Reaction Additional Past Anesthesia/Blood Transfusion Reaction / Comment(s): Claustrophobic Date of Last Stent Placement:: 06/03/2022 Past Psychological History: Anxiety, Bipolar, Panic Disorder, PTSD Smoking Status: Former smoker Past Alcohol Use History: None Reported Past Drug Use History: None Reported - Past Family History Mother Family Medical History: Cancer, Dementia, Diabetes Mellitus, GERD/Reflux, Hyperlipidemia, Hypertension, Thyroid Disorder, Vascular Disorder Additional Family Medical History / Comment(s): CABG x2, stents Father History Unknown: Yes Family Medical History: No Reported History General Exam Limitations: no limitations General appearance: alert, in no apparent distress Head exam: Present: atraumatic, normocephalic, normal inspection Eye exam: Present: normal appearance, PERRL, EOMI. Absent: scleral icterus, conjunctival injection, periorbital swelling ENT exam: Present: normal exam, mucous membranes moist Neck exam: Present: normal inspection. Absent: tenderness, meningismus, lymphadenopathy Respiratory exam: Present: normal lung sounds bilaterally. Absent: respiratory distress, wheezes, rales, rhonchi, stridor Cardiovascular Exam: Present: regular rate, normal rhythm, normal heart sounds. Absent: systolic murmur, diastolic murmur, rubs, gallop, clicks GI/Abdominal exam: Present: soft, normal bowel sounds. Absent: distended, tenderness, guarding, rebound, rigid Neurological exam: Present: alert, oriented X3 Psychiatric exam: Present: normal affect, normal mood Skin exam: Present: warm, dry, intact, normal color. Absent: rash Course Vital Signs 10/17/24 10/17/24 10/17/24 17:25 18:17 20:07 Temperature 98.1 F Pulse Rate 92 88 Pulse Rate [ 88 Bilateral Radial] Respiratory 18 18 Rate Blood Pressure 153/94 142/108 O2 Sat by Pulse 99 99 Oximetry 10/17/24 22:25 Temperature 98.2 F Pulse Rate 97 Pulse Rate [ Bilateral Radial] Respiratory 15 Rate Blood Pressure 167/113 O2 Sat by Pulse 99 Oximetry Chest Pain MDM - MDM Was pt. sent in by a medical professional or institution (Dr. PA, DELI CLERK, urgent care, hospital, or [facility]...) When possible be specific @ -No Did you speak to anyone other than the patient for history (EMS, parent, family, police, friend...)? What history was obtained from this source @ -No Did you review nursing and triage notes (agree or disagree)? Why? @ -I reviewed and agree with nursing and triage notes Were old charts reviewed (outside hosp., previous admission, EMS record, old EKG, old radiological studies, urgent care reports/EKG's, [facility] records)? Report findings @ -No old charts were reviewed Differential Diagnosis (chest pain, altered mental status, abdominal pain women, abdominal pain men, vaginal bleeding, weakness, fever, dyspnea, syncope, headache, dizziness, GI bleed, back pain, seizure, CVA, palpatations, mental health, musculoskeletal)? @ -Differential Chest Pain: Stable Angina, Unstable Angina, STEMI, NSTEMI Aortic Dissection, Pneumothorax, Musculoskeletal, Esophageal Spasm GERD, Cholecystitis, Pancreatitis, Zoster, this is not meant to be an all-inclusive list. EKG interpreted by me (3pts min.). @ -As above X-rays interpreted by me (1pt min.). @ -Chest x-ray reveals no acute cardiopulmonary process CT interpreted by me (1pt min.). @ -None done U/S interpreted by me (1pt. min.). @ -None done What testing was considered but not performed or refused? (CT, X-rays, U/S, labs)? Why? @ -None What meds were considered but not given or refused? Why? @ -None Did you discuss the management of the patient with other professionals (professionals i.e. , PA, DELI CLERK, lab, RT, psych nurse, social service liaison, rn surgery icu, teacher, security flex officer, therapeutic case manager)? Give summary @ -No Was smoking cessation discussed for >3mins.? @ -No Was critical care preformed (if so, how long)? @ -No Were there social determinants of health that impacted care today? How? (Homelessness, low income, unemployed, alcoholism, drug addiction, transportation, low edu. Level, literacy, decrease access to med. care, half-way, rehab)? @ -No Was there de-escalation of care discussed even if they declined (Discuss DNR or withdrawal of care, Hospice)? DNR status @ -No What co-morbidities impacted this encounter? (DM, HTN, Smoking, COPD, CAD, Cancer, CVA, ARF, Chemo, Hep., AIDS, mental health diagnosis, sleep apnea, morbid obesity)? @ -None Was patient admitted / discharged? Hospital course, mention meds given and route, prescriptions, significant lab abnormalities, going to OR and other pertinent info. @ -Discharge 54-year-old female presenting for chest pain x 3 days with nausea and vomiting. Patient is overall well-appearing. EKG reveals normal sinus rhythm with no acute ST changes. Lab work unremarkable. Troponin undetectable. Repeat troponin undetectable. Chest x-ray reveals no acute cardiopulmonary process. Upon reevaluation, patient reports improvement of symptoms. Patient can be safely discharged home with close outpatient follow-up and strict return precautions. Case was discussed with my ED attending Dr. Herrera. Undiagnosed new problem with uncertain prognosis? @ -No Drug Therapy requiring intensive monitoring for toxicity (Heparin, Nitro, Insulin, Cardizem)? @ -No Were any procedures done? @ -No Diagnosis/symptom? @ -Chest pain, nausea and vomiting Acute, or Chronic, or Acute on Chronic? @ -Acute on chronic Uncomplicated (without systemic symptoms) or Complicated (systemic symptoms)? @ -Uncomplicated Side effects of treatment? @ -No Exacerbation, Progression, or Severe Exacerbation? @ -No Poses a threat to life or bodily function? How? (Chest pain, [place], MA, pneumonia, PE, COPD, DKA, ARF, appy, cholecystitis, CVA, Diverticulitis, Homicidal, Suicidal, threat to staff... and all critical care pts) @ -Unlikely at this time Disposition Clinical Impression: Chest pain, Nausea and vomiting Disposition: HOME SELF-CARE Condition: Stable Instructions (If sedation given, give patient instructions): Chest Pain (ED) Additional Instructions: Follow-up with your PCP tomorrow. Please return to the Emergency Department if symptoms worsen or any other concerns. Is patient prescribed a controlled substance at d/c from ED?: No Referrals: None,Stated [Primary Care Provider] - 1-2 days Time of Disposition: 23:17
[2024-10-17] MEDS: MORPHINE SULFATE 4 MG/ML SYRINGE IVP STA (20:07)
[2024-10-17 20:19] LABS: Basophils # (A) 0.05 10*3/uL (0.00-0.10); Basophils % (A) 0.5 %; Eosinophils # (A) 0.05 10*3/uL (0.04-0.35); Eosinophils % (A) 0.5 %; HCT 41.1 % (37.2-46.3); HGB 13.8 g/dL (12.0-15.0); Lymphocytes # (A) 1.89 10*3/uL (0.90-5.00); Lymphocytes % (A) 19.5 %; MCH 31.7 pg (27.0-32.0); MCHC 33.6 g/dL (32.0-37.0); MCV 94.3 fL (80.0-97.0); Monocytes # (A) 0.67 10*3/uL (0.20-1.00); Monocytes % (A) 6.9 %; Neutrophils # (A) 6.98 10*3/uL (1.80-7.70); Neutrophils % (A) 72.3 %; Platelet Count 339 10*3/uL (140-440); RBC 4.36 10*6/uL (4.10-5.20); RDW 15.1 % (11.5-14.5); WBC 9.67 10*3/uL (4.50-10.00)
[2024-10-17 20:34] LABS: ALT 30 U/L (4-34); AST 48 U/L (14-36); African American GFR (CKD) >90 (>60 ml/min/1.73 sqM); Albumin 4.2 g/dL (3.5-5.0); Alkaline Phosphatase 164 U/L (38-126); Anion Gap 13 mmol/L; Blood Urea Nitrogen 11 mg/dL (7-17); Calcium 9.9 mg/dL (8.4-10.2); Carbon Dioxide 24 mmol/L (22-30); Chloride 101 mmol/L (98-107); Glucose 86 mg/dL (74-99); Non-African American GFR(CKD) >90 (>60 ml/min/1.73 sqM); Potassium 4.2 mmol/L (3.5-5.1); Sodium 138 mmol/L (137-145); Total Protein 7.0 g/dL (6.3-8.2)
[2024-10-17] MEDS: METOCLOPRAMIDE 5 MG/ML 2 ML VIAL IVP STA (21:55)
[2024-10-17] MEDS: ACETAMINOPHEN TAB 500 MG TAB PO STA (22:16)
[2024-10-17] MEDS: MORPHINE SULFATE 2 MG/ML SYRINGE IVP ONE (23:08)
[2024-10-17 23:54] VITALS: BP 166/120; PULSE 100; RESP 18; TEMP 98.3
== END 2024-10-17 23:53 | disposition home or self-care (01) ==
LOC: EC 17:23
DX: R07.9 Chest pain, unspecified (principal); R11.2 Nausea with vomiting, unspecified; Z87.891 Personal history of nicotine dependence; Z88.0 Allergy status to penicillin; Z88.1 Allergy status to other antibiotic agents; Z88.2 Allergy status to sulfonamides; Z88.5 Allergy status to narcotic agent; Z88.6 Allergy status to analgesic agent; Z91.040 Latex allergy status; Z88.8 Allergy status to other drugs, medicaments and biological substances
CPT/HCPCS: 36415; 93005; 80053; 84484; 85025; 71046; 99285; 96374; 96375; 96376; 96361; J2270 ×2; J2405; J1642

== ENCOUNTER 2024-10-19 19:26 | Emergency (ER) | payer OTHER ==
[2024-10-19] MEDS: diphenhydrAMINE 50 MG/ML 1 ML VIAL IVP STA (20:18)
[2024-10-19] MEDS: ONDANSETRON 4 MG/2 ML VIAL IVP STA ×2 (20:18→21:13)
[2024-10-19] MEDS: ASPIRIN 81 MG PO STA (20:19)
[2024-10-19] MEDS: SODIUM CHLORIDE 0.9% 1,000 ML IV ONE (20:19)
--- NOTE | 2024-10-19 20:20 | ED ---
Nausea/Vomiting/Diarrhea HPI - General Chief complaint: Nausea/Vomiting/Diarrhea Stated complaint: Syncope,Vomiting Time Seen by Provider: 10/19/24 19:44 Source: patient, RN notes reviewed Mode of arrival: ambulatory Limitations: no limitations - History of Present Illness Initial comments: This is a 54-year-old female who presents to the emergency department for nausea and vomiting. States that it has been going on for the last 3 to 4 days. Denies any abdominal pain. States that she feels weak and had a syncopal episode today. Believes that it is because she is dehydrated. She also has right-sided sharp chest pain going up into the right side of her face. However, states that it does not feel like cardiac pain. Denies any shortness of breath associated with this. MD complaint: nausea, vomiting - Related Data Home Medications Medication Instructions Recorded Confirmed Omeprazole [PriLOSEC] 20 mg PO HS 12/15/20 05/09/24 Thiamine [Vitamin B-1] 100 mg PO DAILY 01/04/21 05/09/24 Atorvastatin [Lipitor] 40 mg PO HS 07/20/21 05/09/24 DULoxetine HCL [Cymbalta] 60 mg PO HS 07/20/21 05/09/24 Atogepant [Qulipta] 60 mg PO HS 06/03/22 05/09/24 Cyclobenzaprine [Flexeril] 10 mg PO TID PRN 06/03/22 05/09/24 HYDROcodone/APAP 10-325MG [[place] 1 tab PO TID 06/03/22 05/09/24 10-325] Aspirin 81 mg PO HS 08/29/22 05/09/24 Cyanocobalamin (Vitamin B-12) 1,000 mcg PO DAILY 09/07/23 05/09/24 [Vitamin B-12] Multivitamins, Thera [Multivitamin 1 tab PO HS 09/07/23 05/09/24 (formulary)] Zavegepant HCl [Zavzpret] 1 spray NASAL DAILY PRN 09/07/23 05/09/24 Potassium Chloride ER [K-Dur 10] 10 meq PO BID 12/10/23 05/09/24 QUEtiapine FUMARATE [SEROquel] 300 mg PO HS 01/10/24 05/09/24 Previous Rx's Medication Instructions Recorded Dicyclomine [Bentyl] 10 mg PO QID 7 Days #28 cap 03/12/24 Metoprolol Tartrate 25 mg PO BID #90 tab 03/16/24 Cephalexin [Keflex] 500 mg PO Q6HR 10 Days #40 cap 05/14/24 Cephalexin [Keflex] 500 mg PO Q6HR #40 cap 10/01/24 Sulfamethox-Tmp 800-160Mg [Bactrim 1 tab PO Q12HR #20 tab 10/01/24 DS 800-160 mg] Ondansetron Odt [Zofran Odt] 4 mg PO Q8HR PRN #20 tab 10/19/24 Allergies Allergy/AdvReac Type Severity Reaction Status Date / Time dihydroergotamine Allergy Unknown Unknown Verified 10/19/24 19:38 [From Migranal] buprenorphine Allergy Rash/Hives Verified 10/19/24 19:38 gabapentin [From Neurontin] Allergy Itching/Swe Verified 10/19/24 19:38 lling latex Allergy Anaphylaxis Verified 10/19/24 19:38 naproxen [From Naprosyn] Allergy Anaphylaxis Verified 10/19/24 19:38 Penicillins Allergy Anaphylaxis Verified 10/19/24 19:38 quetiapine fumarate Allergy Itching, Verified 10/19/24 19:38 [From Seroquel] leg cramps rofecoxib [From Vioxx] Allergy Itching, Verified 10/19/24 19:38 leg cramps terfenadine [From Seldane] Allergy Rash/Hives Verified 10/19/24 19:38 vancomycin Allergy Rash/Hives/Swelling Verified 10/19/24 19:38 @IV site calcium carbonate [From DHEA] AdvReac Chest Pain Verified 10/19/24 19:38 calcium phosphate,dibasic AdvReac Chest Pain Verified 10/19/24 19:38 [From DHEA] clindamycin AdvReac muscle Verified 10/19/24 19:38 cramps clonidine AdvReac fast Verified 10/19/24 19:38 heartbeat, migraine dextromethorphan HBr AdvReac face/neck Verified 10/19/24 19:38 [From NyQuil] flushing diazepam [From Valium] AdvReac Nausea & Verified 10/19/24 19:38 Vomiting divalproex sodium AdvReac Nausea & Verified 10/19/24 19:38 [From Depakote] Vomiting doxylamine [From NyQuil] AdvReac face "beet Verified 10/19/24 19:38 red", elevated temp. ibuprofen [From Motrin] AdvReac abdominal Verified 10/19/24 19:38 & muscle cramps indomethacin [From Indocin] AdvReac Abdominal Verified 10/19/24 19:38 Pain,N/V ketorolac tromethamine AdvReac "built up Verified 10/19/24 19:38 [From Toradol] in system", had to be given something to reverse lorazepam [From Ativan] AdvReac Nausea & Verified 10/19/24 19:38 Vomiting memantine [From Namenda] AdvReac Itching Verified 10/19/24 19:38 metoclopramide HCl AdvReac muscle Verified 10/19/24 19:38 [From Reglan] cramps nortriptyline [From Pamelor] AdvReac Chest Pain Verified 10/19/24 19:38 prasterone (DHEA) [From DHEA] AdvReac Chest Pain Verified 10/19/24 19:38 prochlorperazine AdvReac leg Verified 10/19/24 19:38 [From Compazine] cramping propranolol AdvReac Chest Pain Verified 10/19/24 19:38 pseudoephedrine HCl AdvReac face "beet Verified 10/19/24 19:38 [From NyQuil] red", elevated temp. quetiapine [From Seroquel] AdvReac leg Verified 10/19/24 19:38 cramping sumatriptan [From Imitrex] AdvReac migrane Verified 10/19/24 19:38 sumatriptan succinate AdvReac migrane Verified 10/19/24 19:38 [From Imitrex] topiramate [From Topamax] AdvReac "built up Verified 10/19/24 19:38 in system", had to be given something to reverse tramadol AdvReac Nausea & Verified 10/19/24 19:38 Vomiting/LEG CRAMPS/HEART FLUTTERS trazodone AdvReac "built up Verified 10/19/24 19:38 in system", had to be given something to reverse zolpidem tartrate AdvReac "Became Verified 10/19/24 19:38 [From Ambien] violent with no memory" zonisamide [From Zonegran] AdvReac inability Verified 10/19/24 19:38 to eat steroids Allergy Swelling Uncoded 10/19/24 19:38 artificial sweetener AdvReac SEVERE Uncoded 10/19/24 19:38 MIGRAINE HEADACHE prosyn AdvReac Itching Uncoded 10/19/24 19:38 Review of Systems ROS Statement: Those systems with pertinent positive or pertinent negative responses have been documented in the HPI. ROS Other: All systems not noted in ROS Statement are negative. Past Medical History Past Medical History: Hyperlipidemia, Hypertension, Seizure Disorder, Supraventricular Tachycardia (SVT) Additional Past Medical History / Comment(s): Migraines, viral meningitis x3 as a child, 1995, 2000, chronic back pain, nerve blocks (neck and occipital nerve) 08/2016 and 12/2016. Last seizure 10/10/2020, "ABSENT SEIZURES. HX TACHYCARDIA, Complex PTSD. gillean barre History of Any Multi-Drug Resistant Organisms: None Reported Past Surgical History: Appendectomy, Section, Cholecystectomy, Heart Catheterization, Heart Catheterization With Stent, Hernia Repair, Hysterectomy, Orthopedic Surgery, Tonsillectomy, Tubal Ligation Additional Past Surgical History / Comment(s): Hiatal Hernia, umbilical hernia repair, left rotator cuff repair, bilateral knee scopes, pain clinic procedures- occipital nerve block. abd exploratory sx(endometreosis), 3 abd scopes 1981, 1989, 1991), lumbar puncture. EGD. nerve biopsy, salvalry gland biospy, Port (Right side 2018, left side 2020), Esophogeal dilation(2023) Past Anesthesia/Blood Transfusion Reactions: No Reported Reaction Additional Past Anesthesia/Blood Transfusion Reaction / Comment(s): Claustrophobic Date of Last Stent Placement:: 06/03/2022 Past Psychological History: Anxiety, Bipolar, Panic Disorder, PTSD Smoking Status: Former smoker Past Alcohol Use History: None Reported Past Drug Use History: None Reported - Past Family History Mother Family Medical History: Cancer, Dementia, Diabetes Mellitus, GERD/Reflux, Hyperlipidemia, Hypertension, Thyroid Disorder, Vascular Disorder Additional Family Medical History / Comment(s): CABG x2, stents Father History Unknown: Yes Family Medical History: No Reported History General Exam Limitations: no limitations General appearance: alert, in no apparent distress Head exam: Present: atraumatic, normocephalic, normal inspection Respiratory exam: Present: normal lung sounds bilaterally. Absent: respiratory distress, wheezes, rales, rhonchi, stridor Cardiovascular Exam: Present: regular rate, normal rhythm GI/Abdominal exam: Present: soft, normal bowel sounds. Absent: distended, tenderness, guarding, rebound, rigid Neurological exam: Present: alert, oriented X3, CN II-XII intact Psychiatric exam: Present: normal affect, normal mood Skin exam: Present: warm, dry, intact, normal color. Absent: rash Course Vital Signs 10/19/24 10/19/24 19:35 21:50 Temperature 97.9 F 98 F Pulse Rate 92 81 Respiratory 18 17 Rate Blood Pressure 142/95 157/104 O2 Sat by Pulse 100 98 Oximetry Medical Decision Making - Medical Decision Making This is a 54 year old female who presents to the emergency department for nausea and vomiting. Was pt. sent in by a medical professional or institution? @ -No Did you speak to anyone other than the patient for history? @ -No Did you review nursing and triage notes? @ -Yes, and I agree, it is accurate with regards to the patient's symptoms. Were old charts reviewed? @ -No Differential Diagnosis? @ -Differential Nausea and Vomiting: Gastroenteritis, cholecystitis, appendicitis, pancreatitis, migraine, benign positional vertigo, food borne illness, pyelonephritis, irritable bowel syndrome, influenza, Covid, GERD, incarcerated hernia, intestinal obstruction, this is not meant to be an all-inclusive list. EKG interpreted by me (3pts min.)? @ -EKG interpreted by me demonstrating the following: Sinus rhythm. Ve ntricular rate 98 bpm, LA interval 160 ms, QRS duration 77 ms, QTc 402 ms. X-rays interpreted by me (1pt min.)? @ -Chest x-ray obtained, my interpretation identifies no localized consolidations or infiltrates. CT interpreted by me (1pt min.)? @ -Not obtained U/S interpreted by me (1pt. min.)? @ -Not obtained What testing was considered but not performed? (CT, X-rays, U/S, labs)? Why? @ -None What meds were considered but not given? Why? @ -None Did you discuss the management of the patient with other professionals? @ -No Did you reconcile home meds? @ -No Was smoking cessation discussed for >3mins.? @ -I discussed smoking cessation for greater than 3 minutes. The risk of smoking were discussed with the patient including but not limited to risks of cancer, stroke, coronary artery disease and COPD. Also discussed with patient were multiple methods of quitting smoking. Lastly we discussed the financial cost of smoking. Was critical care preformed (if so, how long)? @ -No Were there social determinants of health that impacted care today? How? (Homelessness, low income, unemployed, alcoholism, drug addiction, transportation, low edu. Level, literacy, decrease access to med. care, retirement, rehab)? @ -No Was there de-escalation of care discussed even if they declined? (Discuss DNR or withdrawal of care, Hospice)? @ -No What co-morbidities impacted this encounter? (DM, HTN, Smoking, COPD, CAD, Cancer, CVA, Hep., AIDS, mental health diagnosis, sleep apnea, morbid obesity)? @ -Smoking, HLD, HTN Was patient admitted / discharged? @ -Discharged. Lab work demonstrates mild leukocytosis with a white blood cell count of 10.96 and is otherwise unremarkable. Troponin negative. Chest x-ray reveals no acute process. Symptoms well-controlled in the emergency department. Her largest concern was the nausea and vomiting, which was well-controlled IV fluids and Zofran. Zofran prescribed for any additional nausea and vomiting. Advised she otherwise follow-up with her PCP. Patient discharged home in stable condition. Case discussed with ED attending Dr. Hein. Return precautions reviewed in depth, the patient is instructed to return to the emergency department with any new, worsening, or concerning symptoms. Patient verbalized understanding. Undiagnosed new problem with uncertain prognosis? @ -None Drug Therapy requiring intensive monitoring for toxicity (Heparin, Nitro, Insulin, Cardizem)? @ -None Were any procedures done? @ -None Diagnosis/symptom? @ -Nausea and vomiting, syncope Acute, or Chronic, or Acute on Chronic? @ -Acute Uncomplicated (without systemic symptoms) or Complicated (systemic symptoms)? @ -Uncomplicated Side effects of treatment? @ -None Exacerbation, Progression, or Severe Exacerbation] @ -Not applicable Poses a threat to life or bodily function? @ -No - Lab Data Result diagrams: 10/19/24 20:11 10/19/24 20:11 Lab Results 10/19/24 10/19/24 10/19/24 Range/Units 20:11 20:11 20:11 WBC 10.96 H (4.50-10.00) 10*3/uL RBC 3.95 L (4.10-5.20) 10*6/uL Hgb 12.3 (12.0-15.0) g/dL Hct 37.2 (37.2-46.3) % MCV 94.2 (80.0-97.0) fL MCH 31.1 (27.0-32.0) pg MCHC 33.1 (32.0-37.0) g/dL Plt Count 269 (140-440) 10*3/uL MPV 10.8 (9.5-12.2) fL Immature Gran % (Auto) 0.1 % Neutrophils % 75.3 % Lymphocytes % 15.6 % Monocytes % 8.2 % Eosinophils % 0.3 % Basophils % 0.5 % Immature Gran # 0.01 (0.00-0.04) 10*3/uL Neutrophils # 8.25 H (1.80-7.70) 10*3/uL Lymphocytes # 1.71 (0.90-5.00) 10*3/uL Monocytes # 0.90 (0.20-1.00) 10*3/uL Eosinophils # 0.03 L (0.04-0.35) 10*3/uL Basophils # 0.06 (0.00-0.10) 10*3/uL Sodium 138 (137-145) mmol/L Potassium 3.5 (3.5-5.1) mmol/L Chloride 104 (98-107) mmol/L Carbon Dioxide 23 (22-30) mmol/L Anion Gap 11 mmol/L BUN 8 (7-17) mg/dL Creatinine 0.84 (0.52-1.04) mg/dL Est GFR (CKD-EPI)AfAm >90 (>60 ml/min/1.73 sqM) Est GFR (CKD-EPI)NonAf 80 (>60 ml/min/1.73 sqM) Glucose 102 H (74-99) mg/dL Calcium 9.1 (8.4-10.2) mg/dL Magnesium 1.8 (1.6-2.3) mg/dL Total Bilirubin 0.6 (0.2-1.3) mg/dL AST 43 H (14-36) U/L ALT 31 (4-34) U/L Alkaline Phosphatase 148 H (38-126) U/L Troponin I <0.012 (0.000-0.034) ng/mL Total Protein 6.8 (6.3-8.2) g/dL Albumin 4.2 (3.5-5.0) g/dL Lipase 39 (23-300) U/L - Radiology Data Radiology results: report reviewed, image reviewed Disposition Clinical Impression: Nausea and vomiting, Nicotine dependence, Syncope Disposition: HOME SELF-CARE Instructions (If sedation given, give patient instructions): Acute Nausea and Vomiting (ED) Additional Instructions: Return to the emergency department with any new, worsening, or concerning symptoms. Take the Zofran up to every 8 hours as needed for nausea and vomiting . Follow up with your primary care provider in 1-2 days. Prescriptions: Ondansetron Odt [Zofran Odt] 4 mg PO Q8HR PRN #20 tab PRN Reason: Nausea And Vomiting Is patient prescribed a controlled substance at d/c from ED?: No Referrals: None,Stated [Primary Care Provider] - 1-2 days Time of Disposition: 21:45
[2024-10-19 20:23] LABS: Basophils # (A) 0.06 10*3/uL (0.00-0.10); Basophils % (A) 0.5 %; Eosinophils # (A) 0.03 10*3/uL (0.04-0.35); Eosinophils % (A) 0.3 %; HCT 37.2 % (37.2-46.3); HGB 12.3 g/dL (12.0-15.0); Lymphocytes # (A) 1.71 10*3/uL (0.90-5.00); Lymphocytes % (A) 15.6 %; MCH 31.1 pg (27.0-32.0); MCHC 33.1 g/dL (32.0-37.0); MCV 94.2 fL (80.0-97.0); Monocytes # (A) 0.90 10*3/uL (0.20-1.00); Monocytes % (A) 8.2 %; Neutrophils # (A) 8.25 10*3/uL (1.80-7.70); Neutrophils % (A) 75.3 %; Platelet Count 269 10*3/uL (140-440); RBC 3.95 10*6/uL (4.10-5.20); RDW 15.0 % (11.5-14.5); WBC 10.96 10*3/uL (4.50-10.00)
[2024-10-19 20:34] LABS: ALT 31 U/L (4-34); AST 43 U/L (14-36); African American GFR (CKD) >90 (>60 ml/min/1.73 sqM); Albumin 4.2 g/dL (3.5-5.0); Alkaline Phosphatase 148 U/L (38-126); Anion Gap 11 mmol/L; Blood Urea Nitrogen 8 mg/dL (7-17); Calcium 9.1 mg/dL (8.4-10.2); Carbon Dioxide 23 mmol/L (22-30); Chloride 104 mmol/L (98-107); Glucose 102 mg/dL (74-99); Lipase 39 U/L (23-300); Magnesium 1.8 mg/dL (1.6-2.3); Non-African American GFR(CKD) 80 (>60 ml/min/1.73 sqM); Potassium 3.5 mmol/L (3.5-5.1); Sodium 138 mmol/L (137-145); Total Protein 6.8 g/dL (6.3-8.2)
--- NOTE | 2024-10-19 20:36 | XR ---
EXAMINATION TYPE: XR chest 2V DATE OF EXAM: 10/19/2024 8:32 PM COMPARISON: Chest radiographs from 10/17/2024 TECHNIQUE: XR chest 2V Frontal and lateral views of the chest. CLINICAL INDICATION:Female, 54 years old with history of Chest pain; FINDINGS: Lungs/Pleura: There is no evidence of pleural effusion, focal consolidation, or pneumothorax. Pulmonary vascularity: Unremarkable. Heart/mediastinum: Cardiomediastinal silhouette is unremarkable. Musculoskeletal: No acute osseous pathology. Other findings: None Lines/Tubes: Left chest IJ Mediport catheter with distal tip terminating at the superior cavoatrial junction. IMPRESSION: No acute cardiopulmonary disease/process. [facility], , 10/19/2024 8:34 PM
[2024-10-19] MEDS: HYDROmorphone 1 MG/ML 1 ML SYRINGE IVP STA (21:13)
[2024-10-19] MEDS: ORPHENADRINE 30 MG/ML 2 ML VIAL IVP STA (21:13)
[2024-10-19] MEDS: ONDANSETRON 4 MG ODT STARTER PACK TAB BTL PO STA (21:50)
[2024-10-19 21:57] VITALS: BP 157/104; PULSE 81; RESP 17; TEMP 98
== END 2024-10-19 21:56 | disposition home or self-care (01) ==
LOC: EC 19:26
DX: R11.2 Nausea with vomiting, unspecified (principal); R55 Syncope and collapse; E78.5 Hyperlipidemia, unspecified; I10 Essential (primary) hypertension; Z87.891 Personal history of nicotine dependence; Z88.0 Allergy status to penicillin; Z88.1 Allergy status to other antibiotic agents; Z88.2 Allergy status to sulfonamides; Z88.5 Allergy status to narcotic agent; Z88.6 Allergy status to analgesic agent; Z91.040 Latex allergy status; Z88.8 Allergy status to other drugs, medicaments and biological substances
CPT/HCPCS: 36415; 93005; 80053; 83690; 83735; 84484; 85025; 71046; 99284; 96374; 96375; 96376; 96361; J1200; J2360; J2405; J1171; S0119